=== PATIENT | male | born 1955 | race Caucasian/White ===

== ENCOUNTER 2023-03-10 08:49 | Outpatient (OUT) | payer OTHER, SELFPAY ==
--- NOTE | 2023-03-10 | XR_ITS ---
The [address] [address] Patient Name: GREGG FOSTER MRN: [id number] date: 1955 Sex: M Assigned Patient Location: Current Patient Location: Accession/Order Number: [id number] Exam Date: 03/10/2023 09:03 Report Date: 03/10/2023 09:24 At the request of: LAISHA MOMIN Procedure: XR foot RT min 3V PROCEDURE: XR foot RT min 3V DATE: 03/10/2023 8:03 AM CDT COMPARISONS: None CLINICAL INDICATION: RIGHT FOOT PAIN FINDINGS: There is no evidence of fractures or other acute osseous abnormalities. Soft tissue swelling is noted about the foot especially the dorsum of the foot on lateral view in the medial foot on frontal view There is mild to moderate first metatarsal phalangeal and first interphalangeal degenerative change. There is minimal spurring off the posterior inferior os calcis. There is more prominent spurring off the posterior os calcis at the attachment of the Achilles. There is no evidence of erosive osseous lesion or destructive osseous process. XR/XR foot RT min 3V IMPRESSION: Right foot radiographs show no evidence of acute abnormalities. Findings as discussed above. Electronically authenticated by: MELINDA VELAZCO Date: 03/10/2023 09:24
== END 2023-03-10 08:50 | disposition home or self-care (01) ==
LOC: WC 08:50
PROVIDERS: Family Provider Family Medicine; PCP Family Medicine; Visit Provider Podiatrist Foot & Ankle Surgery
DX: M79.671 Pain in right foot (principal); E11.621 Type 2 diabetes mellitus with foot ulcer; L97.411 Non-pressure chronic ulcer of right heel and midfoot limited to breakdown of skin
CPT/HCPCS: 11042; 73630; G0463

== ENCOUNTER 2023-04-18 10:43 | Outpatient (OUT) | payer OTHER, SELFPAY | END 2023-04-18 10:44 | disposition home or self-care (01) | LOC: WC 10:43 | PROVIDERS: Family Provider Family Medicine; PCP Family Medicine; Visit Provider Podiatrist Foot & Ankle Surgery | DX: E11.621 Type 2 diabetes mellitus with foot ulcer (principal); L97.411 Non-pressure chronic ulcer of right heel and midfoot limited to breakdown of skin | CPT/HCPCS: 11042 ==

== ENCOUNTER 2023-05-02 15:04 | Outpatient (OUT) | payer OTHER, SELFPAY | END 2023-05-02 15:05 | disposition home or self-care (01) | LOC: WC 15:04 | PROVIDERS: Family Provider Family Medicine; PCP Family Medicine; Visit Provider Podiatrist Foot & Ankle Surgery | DX: E11.621 Type 2 diabetes mellitus with foot ulcer (principal); L97.411 Non-pressure chronic ulcer of right heel and midfoot limited to breakdown of skin | CPT/HCPCS: 11042 ==

== ENCOUNTER 2023-05-16 15:56 | Outpatient (OUT) | payer OTHER, SELFPAY | END 2023-05-16 15:57 | disposition home or self-care (01) | LOC: WC 15:57 | PROVIDERS: Family Provider Family Medicine; PCP Family Medicine; Visit Provider Podiatrist Foot & Ankle Surgery | DX: E11.621 Type 2 diabetes mellitus with foot ulcer (principal); L97.412 Non-pressure chronic ulcer of right heel and midfoot with fat layer exposed; S81.801A Unspecified open wound, right lower leg, initial encounter | CPT/HCPCS: 11043 ==

== ENCOUNTER 2023-06-02 09:27 | Outpatient (OUT) | payer OTHER, SELFPAY | END 2023-06-02 09:28 | disposition home or self-care (01) | LOC: WC 09:27 | PROVIDERS: Family Provider Family Medicine; PCP Family Medicine; Visit Provider Podiatrist Foot & Ankle Surgery | DX: E11.621 Type 2 diabetes mellitus with foot ulcer (principal); L97.412 Non-pressure chronic ulcer of right heel and midfoot with fat layer exposed | CPT/HCPCS: 11042 ==

== ENCOUNTER 2023-06-23 09:30 | Outpatient (OUT) | payer OTHER, SELFPAY | END 2023-06-23 09:31 | disposition home or self-care (01) | LOC: WC 09:30 | PROVIDERS: Family Provider Family Medicine; PCP Family Medicine; Visit Provider Podiatrist Foot & Ankle Surgery | DX: E11.621 Type 2 diabetes mellitus with foot ulcer (principal); L97.412 Non-pressure chronic ulcer of right heel and midfoot with fat layer exposed; L97.511 Non-pressure chronic ulcer of other part of right foot limited to breakdown of skin | CPT/HCPCS: 11042 ==

== ENCOUNTER 2023-07-07 09:25 | Outpatient (OUT) | payer OTHER, SELFPAY | END 2023-07-07 09:26 | disposition home or self-care (01) | LOC: WC 09:26 | PROVIDERS: Family Provider Family Medicine; PCP Family Medicine; Visit Provider Podiatrist Foot & Ankle Surgery | DX: E11.621 Type 2 diabetes mellitus with foot ulcer (principal); L97.412 Non-pressure chronic ulcer of right heel and midfoot with fat layer exposed; L97.511 Non-pressure chronic ulcer of other part of right foot limited to breakdown of skin | CPT/HCPCS: 11043 ==

== ENCOUNTER 2023-07-28 11:49 | Outpatient (OUT) | payer OTHER, SELFPAY ==
--- NOTE | 2023-07-28 | XR_ITS ---
[address] [address] Patient Name: GREGG FOSTER MRN: [id number] date: 1955 Sex: M Assigned Patient Location: Current Patient Location: Accession/Order Number: [id number] Exam Date: 07/28/2023 10:27 Report Date: 07/28/2023 11:29 At the request of: LAISHA MOMIN Procedure: XR foot RT min 3V EXAM: XR foot RT min 3V HISTORY: RIGHT FOOT PAIN COMPARISON: Right foot study dated 03/10/2023 TECHNIQUE: 4 views of the right foot were obtained. FINDINGS: No definite acute fracture or dislocation. Moderate size posterior calcaneal spur with tiny plantar calcaneal spur suggested. Mild degenerative changes about the interphalangeal joint of the great toe and first metatarsophalangeal joint. Mild degenerative changes about the first metatarsal head. No obvious focal lytic or sclerotic lesion. Small spur along the dorsal navicular. No obvious soft tissue air. Mild soft tissue swelling suggested. XR/XR foot RT min 3V IMPRESSION: Right foot study demonstrates degenerative changes as described. No obvious focal lytic or sclerotic lesion. No obvious osteomyelitis. Mild soft tissue swelling suggested. Follow-up as needed. Electronically authenticated by: CARLOS MAGUIRE Date: 07/28/2023 11:29
== END 2023-07-28 11:50 | disposition home or self-care (01) ==
LOC: WC 11:49
PROVIDERS: Family Provider Family Medicine; PCP Family Medicine; Visit Provider Podiatrist Foot & Ankle Surgery
DX: E11.621 Type 2 diabetes mellitus with foot ulcer (principal); L97.412 Non-pressure chronic ulcer of right heel and midfoot with fat layer exposed; L97.511 Non-pressure chronic ulcer of other part of right foot limited to breakdown of skin
CPT/HCPCS: 11042; 73630

== ENCOUNTER 2023-08-04 09:14 | Outpatient (OUT) | payer OTHER, SELFPAY ==
[2023-08-04 09:26] LABS: Basophils Absolute Auto 0.1 10^3/uL (0.0-0.1); Basophils Percent Auto 1.2 % (0.2-2.0); Eosinophils Absolute Auto 0.3 10^3/uL (0.0-0.7); Eosinophils Percent Auto 3.3 % (0.9-7.0); Hematocrit 44.3 % (42.0-54.0); Hemoglobin 13.1 g/dL (14.0-18.0); Immature Granulocytes Abs Auto 0.03 10^3/uL (0.00-0.03); Immature Granulocytes Pct Auto 0.3 % (0.0-0.5); Lymphocytes Absolute Auto 1.3 10^3/uL (1.2-3.8); Lymphocytes Percent Auto 14.1 % (20.5-60.0); Mean Corpuscular HGB Conc 29.6 g/dL (29.9-35.2); Mean Corpuscular Hemoglobin 24.3 pg (25.9-34.0); Mean Corpuscular Volume 82.3 fL (80.0-94.0); Mean Platelet Volume 8.7 fL (9.5-13.5); Monocytes Percent Auto 11.2 % (1.7-12.0); Neutrophils Absolute Auto 6.5 10^3/uL (1.4-6.5); Neutrophils Percent Auto 69.9 % (43.0-75.0); Platelet Count 291 10^3/uL (150-450); Red Blood Count 5.38 10^6/uL (4.70-6.10); Red Cell Distribution Width 21.3 % (11.0-15.0); White Blood Count 9.3 10^3/uL (4.0-11.0)
[2023-08-04 09:28] LABS: Erythrocyte Sedimentation Rate 36 mm/hr (<=20)
--- OUTSIDE RECORDS SUMMARY | 2023-08-04 09:34 | XMS_ITS | CCD ---
Author Name Unknown Address [address] [place] [address] [facility] Care Team Providers Care Chemist Organic Name Role Phone Jeff Cerda Unavailable AYDE NICOLE Unavailable Unavailab AYDE Coley Unavailable Unavailab le JEFF CERDA Unavailable Unavailable Ayde Nicole Unavailable Unavailable Ayde Nicole Unavailable Unavailable PHYSICIAN, DEFAULT Unavailable Unavailable PHYSICIAN, DEFAULT Unavailable Unavailable SHADY RAMOS Unavailable Unavailable AYDE NICOLE Unavailable Unavailable SHADY RAMOS Unavailable Unavailable SHADY RAMOS Unavailable Unavailable SHADY RAMOS Unavailable Unavailable SHADY RAMOS Unavailable Unavailable Jeff Cerda Primary Care Provider Jeff Cerda Primary Care Provider Jeff Cerda Primary Care Provider Jeff Cerda Primary Care Provider Unavaila ble Jeff Cerda Primary Care Provider Jeff Cerda MD Primary Care Provider AYDE MATTHEWS Referring Unavailable JEFF CERDA Primary Care Unavailable AYDE MATTHEWS Admitting Unavailable AYDE MATTHEWS Attending Unavailable AYDE MATTHEWS Referring Unavailable JEFF CERDA Primary Care Unavailable Jeff Cerda MD Primary Care Provider Jeff Cerda MD Primary Care Provider Jeff Cerda MD Primary Care Provider Shahab Buckley MD Unavailable Jeff Cerda MD Primary Care Provider Jeff Cerda MD Primary Care Provider [phone] Shahab Buckley MD Unavailable [phone] Jeff Cerda MD Primary Care Provider [phone] Jeff Cerda MD Primary Care Provider Jeff Cerda MD Primary Care Provider [phone] Shahab Buckley MD Unavailable [phone] JEFF CERDA Primary Care Unavailable SHAHAB BUCKLEY Attending Unavailabl SHAHAB Piper Attending Unavailabl e PRASHANT, GREENWAY Vida Primary Care Unavailable SHAHAB BUCKLEY Attending Unavailabl e PRASHANT, GREENWAY J Admitting Unavailable [facility], [facility] Primary Care Unavailable [facility], GREEN[facility] J Referring Unavailable [facility], [facility] Primary Care Unavailable SHAHAB BUCKLEY Attending Unavailabl SHAHAB Piper Referring Unavailabl e PRASHANT, [facility] Primary Care Unavailable SHAHAB BUCKLEY Attending Unavailabl e PRASHANT, EDSACRAMENTO J Primary Care Unavailable TRACY BRIAN Consulting Unavailable SHAHAB BUCKLEY Admitting UnavailSHAHAB Cardenas Attending Unavailabl e PRASHANT, GREENWAY J Primary Care Unavailable SHAHAB BUCKLEY Referring Unavailabl e PRASHANT, EDSACRAMENTO J Primary Care Unavailable SHAHAB BUCKLEY Attending Unavailabl e PRASHANT, [facility] Primary Care Unavailable MARY JANE RODRIGUEZ Attending Unavailable MARY JANE RODRIGUEZ Referring Unavailable Jeff Cerda MD Primary Care Provider GURWINDER TRUONG Attending Unavailable GURWINDER TRUONG Admitting Unavailable LIONEL NICHOLS Consulting Unavailable PRASHANT Crocker, DR AMBRIZ Primary Care Unavailable LUIS BLOOM Consulting Unavailable Jeff Cerda MD Primary Care Provider Osiris Duran Consulting Unavailable NON STAFF Primary Care Unavailable Meena Falcon Admitting Unavailable Meena Falcon Attending Unavailable Rebecca Liriano Consulting Unavailable Nakul Salcedo Consulting Unavailable Shady Aviles Consulting Unavail able Jason Manuel Consulting Unavailable Mike Corea Consulting Unavailab Delaney Blankenship Consulting Unavailable Ana Nielson Consulting Unavailable Ivon Dumont Consulting Unavailab Shelton Foster Consulting Unavailable Soledad Ho Consulting Unavailable OsbaldolatriceJoyce Consulting Unavailable HEMEYER, EDWARD J Referring Unavailable HEMEYER, EDWARD J Primary Care Unavailable VIGESAA, RAFA S Referring Unavailable HEMEYER, EDWARD J Primary Care Unavailable HEMEYER, EDWARD J Primary Care Unavailable VIGESAA, RAFA S Referring Unavailable HEMEYER, EDWARD J Primary Care Unavailable VIGESAA, RAFA S Referring Unavailable HEMEYER, EDWARD J Primary Care Unavailable VIGESAA, RAFA S Referring Unavailable HEMEYER, EDWARD J Referring Unavailable HEMEYER, EDWARD J Primary Care Unavailable HEMEYER, EDWARD J Referring Unavailable HEMEYER, EDWARD J Primary Care Unavailable VIGESAA, RAFA S Attending Unavailable VIGESAA, RAFA S Referring Unavailable HEMEYER, EDWARD J Primary Care Unavailable HEMEYER, EDWARD J Referring Unavailable HEMEYER, EDWARD J Primary Care Unavailable HEMEYER, EDWARD J Primary Care Unavailable VIGESAA, RAFA S Referring Unavailable HEMEYER, EDWARD J Referring Unavailable HEMEYER, EDWARD J Primary Care Unavailable HEMEYER, EDWARD J Primary Care Unavailable HEMEYER, EDWARD J Referring Unavailable HEMEYER, EDWARD J Referring Unavailable HEMEYER, EDWARD J Primary Care Unavailable HEMEYER, EDWARD J Referring Unavailable HEMEYER, EDWARD J Primary Care Unavailable HEMEYER, EDWARD J Referring Unavailable HEMEYER, EDWARD J Primary Care Unavailable HEMEYER, EDWARD J Referring Unavailable HEMEYER, EDWARD J Primary Care Unavailable HEMEYER, EDWARD J Primary Care Unavailable VIGESAA, RAFA S Referring Unavailable HEMEYER, EDWARD J Primary Care Unavailable VIGESAA, RAAF S Referring Unavailable HEMEYER, EDWARD J Referring Unavailable HEMEYER, EDWARD J Primary Care Unavailable Xander YAN MD, Franck Huang Primary Care Provider [phone] Osiris Duran Consulting Unavailable NON STAFF Primary Care Unavailable Meena Falcon Admitting Unavailable Meena Falcon Attending Unavailable Rebecca Liriano Consulting Unavailable Nakul Salcedo Consulting Unavailable Shady Aviles Consulting Unavail able Jason Manuel Consulting Unavailable Mike Corea Consulting Unavailab Delaney Blankenship Consulting Unavailable Nielson, Ana Consulting Unavailable Tim, Ivonsergey Gonzalezeb Consulting Unavailab Shelton Foster Consulting Unavailable Soledad Ho Consulting Unavailable Joyce Latham Consulting Unavailable Rama, Sanjeev Consulting Unavailable Leuschen [facility], Mikael Unavailable Prashant [place], [facility] Primary Care Provider IAM, OUSSAMA M Referring Un[facility] Primary Care Unavailab le WAZNI, OUSSAMA M Referring Un[facility] Care Unavailab le WAZNI, OUSSAMA M Referring Unavailable [facility], [facility] Care Unavailab le AKASHZNI, OUSSAMA M Referring Un[facility] Care Unavailab ANAMARIA Dorman Attending Unavailable WAZNI, OUSSAMA M Referring Unavailable [facility], [facility] Care Unavailab YANNICK De Attending Unavailable [facility] Care Unavailab YANNICK De Referring Unavailable [facility], [facility] Care Unavailab YANNICK De Referring Unavailable TERRELL II, FRANCK B Primary Care Unavailable HSICH, VENUS M Referring Unavailable TERRELL II, FRANCK B Primary Care Unavailable WAZNI, OUSSAMA M Referring Unavailable XAVIER-NLIAM, CHETE Admitting Unavailable TERRELL II, FRANCK B Primary Care Unavailable JOLANTA, SANJEEB Attending Unavailabl e XAVIER-NLIAM, CHETE Attending Unavailable XAVIER-NLIAM, CHETE Admitting Unavailable TERRELL II, FRANCK B Primary Care Unavailable WAZNI, OUSSAMA M Referring Unavailable JOLANTA, SANJEEB Attending Unavailabl e HEMEYER, [facility] Primary Care Unavailab le TERRELL II, FRANCK B Primary Care Unavailable XAVIER-NLIAM, CHETE Referring Unavailable TERRELL II, FRANCK B Primary Care Unavailable HSICH, VENUS M Referring Unavailable TERRELL II, FRANCK B Primary Care Unavailable HSICH, VENUS M Referring Unavailable TERRELL II, FRANCK B Primary Care Unavailable YANNICK ZUÑIGA Attending Unavailable TERRELL II, FRANCK B Primary Care Unavailable YANNICK ZUÑIGA Referring Unavailable TERRELL II, FRANCK B Primary Care Unavailable MATEJKA, YANNICK D Referring Unavailable Medications Current Medications Medication Drug Class(es) Dates Sig (Normalized) Sig (Original) acetaminophen 325 mg oral tablet (20 sources) Start: 12-29-2021 End: 01-08-2022 take 2 tablets by mouth every four hours as needed acetaminophen (TYLENOL) 325 MG tablet Take 2 (two) tablets (650 mg total) by mouth every 4 (four) hours as needed . 30 tablet 0 12/29/2021 01/08/2022 Active Start: 12-28-2021 End: 12-29-2021 take 1 tablet by mouth every four hours as needed for pain and headache 650 mg, Oral, Every 4 hours PRN, mild pain, fever 100.4 F or greater, headaches, Starting on Mon12/28/21 at 1729 take 1 tablet by josé luis th at bedtime acetaminophen (TYLENOL) 500 MG tablet Take 1 tablet by mouth at bedtime 0 Active take 2 tablets by mo uth at bedtime acetaminophen (TYLENOL) 500 MG tablet Take 1,000 mg by mouth in the morning and at bedtime 0 Active acetaminophen 325 mg / HYDROcodone bitartrate 5 mg oral tablet (1 source) Opioid Agonist Start: 11-23-2020 End: 11-23-2020 HYDROcodone-acetaminophen (NORCO) 5-325 MG per tablet 1 tablet cholecalciferol 0.05 mg oral capsule (20 sources) Vitamin D Cholecalciferol (VITAMIN D) 50 MCG (2000 UT) CAPS capsule Take 8,000 Units by mouth daily 0 Active take 2 tablets by mouth once rossi ly cholecalciferol, vitamin D3, 1,000 unit tablet Take 2 (two) tablets (2,000 Units total) by mouth daily . 0 Active take 4 capsules by m outh once daily, then take 1 capsule by mouth Cholecalciferol (VITAMIN D) 2000 units C APS capsule Take 8,000 Units by mouth daily 0 Active 1 ml diphenhydrAMINE hydrochloride 50 mg/ml cartridge (1 source) Histamine-1 Receptor Antagonist Start: 11-23-2020 End: 11-23-2020 diphenhydrAMINE (BENADRYL) injection 12.5 mg famotidine 20 mg oral tablet (1 source) Histamine-2 Receptor Antagonist take 1 tablet by mouth twice daily famotidine (PEPCID) 20 MG tablet Take 20 mg by mouth 2 (two) times a day. Active furosemide 20 mg oral tablet (20 sources) Loop Diuretic Start: 09-08-2022 take 2 tablets by mouth once daily in the morning, then take 1 tablet by mouth once daily in the evening furosemide (LASIX) 20 MG tablet TAKE 2 TABLETS BY MOUTH EVERY MORNING AND 1 TABLET BY MOUTH EVERY EVENING 90 tablet 11 09/08/2022 Active Start: 10-14-2021 take 2 tablets by mo uth once daily in the morning, then take 1 tablet by mouth once daily in the evening furosemide (LASIX) 20 MG tablet TAKE 2 TABLETS BY MOUTH EVERY MORNING AND 1 TABLET EVERY EVENING 90 tablet 11 10/14/2021 Active Start: 02-11-2019 End: 12-29-2021 take 20 mg by mouth twice daily 20 mg, Oral, 2 times d aily, First dose on Mon12/28/21 at 2100 Start: 09-01-2017 take 2 tablets by mo uth once daily in the morning, then take 1 tablet by mouth once daily in the evening furosemide (LASIX) 20 MG tablet TAKE 2 TABLETS BY MOUTH EVERY MORNING AND 1 TABLET EVERY EVENING 270 tablet 3 10/19/2020 Active take 2 tablets by mo uth twice daily furosemide (LASIX) 20 MG tablet Take 20 mg by mouth 2 (two) times a day 2 tablets . 0 Active furosemide (LASI X) 10 mg/mL solution Take by mouth daily. Active Comment on above: Take 2 tablets by mo uth once daily. 1 ml HYDROmorphone hydrochloride 1 mg/ml cartridge (4 sources) Opioid Agonist Start: 11-23-2020 HYDROmorphone (DILAUDID) injection 0.5 mg Start: 11-23-2020 HYDROmorphone (DILAUDID) injection 0.25 mg 24 hr isosorbide mononitrate 30 mg extended release oral tablet (20 sources) Nitrate Vasodilator Start: 03-17-2022 take 1 tablet by mouth once daily isosorbide mononitrate (IMDUR) 30 MG extended release tablet TAKE 1 TABLET BY MOUTH EVERY DAY 30 tablet 03/17/2022 Active Start: 02-11-2019 End: 12-29-2021 take 1 tablet by mouth once daily isosorbide mononitrate (IMDUR) 30 MG extended release tablet TAKE 1 TABLET BY MOUTH EVERY DAY 30 tablet 11 03/17/2021 Active 1 ml meperidine hydrochloride 50 mg/ml injection (1 source) Opioid Agonist Start: 11-23-2020 meperidine (DEMEROL) injection 12.5 mg 2 ml metoclopramide 5 mg/ml prefilled syringe (1 source) Dopamine-2 Receptor Antagonist Start: 11-23-2020 End: 11-23-2020 metoclopramide (REGLAN) injection 10 mg omeprazole 40 mg delayed release oral capsule (1 source) Proton Pump Inhibitor take 1 capsule by mouth once daily omeprazole (PRILOSEC) 40 MG capsule Take 40 mg by mouth daily. Active promethazine hydrochloride 25 mg oral tablet (3 sources) Phenothiazine Start: 11-23-2020 End: 11-30-2020 take 1 tablet by mouth every six hours as needed for nausea promethazine (PHENERGAN) 25 MG tablet Take 1 tablet by mouth every 6 hours as needed for Nausea 28 tablet 0 11/23/2020 11/23/2020 Discontinued (REORDER) Start: 11-23-2020 End: 11-23-2020 promethazine (PHENERGAN) inj ection 6.25 mg 72 hr scopolamine 0.0139 mg/hr transdermal system (1 source) Anticholinergic Start: 11-23-2020 scopolamine (TRANSDERM-SCOP) transdermal patch 1 patch Sodium Chloride (2 sources) Start: 08-19-2019 End: 08-20-2019 sodium chloride (PF) 0.9 % injection 10 mL Start: 08-12-2019 End: 08-12-2019 0.9 % sodium chloride bolus torsemide 20 mg oral tablet (20 sources) Loop Diuretic Start: 04-13-2023 End: 04-25-2024 take 4 tablets by mouth twice daily torsemide (DEMADEX) 20 mg tablet Take 4 tablets by mouth twice daily. 720 tablet 3 04/26/2023 04/25/2024 Active Start: 03-14-2023 take 1 tablet by josé luis twice daily torsemide (SOAANZ) 40 mg tablet Take 40 mg by mouth twice daily. 0 03/14/2023 Suspended Comment on above: Take 40 mg by mouth twice daily. Take 4 tablets by mo [facility] twice daily. warfarin sodium 2.5 mg oral tablet (20 sources) Vitamin K Antagonist Start: 09-12-2022 warfarin (COUMADIN) 2.5 MG tablet TAKE 1/2 TABLET WEDNESDAYS AND SATURDAYS AND TAKE 1 TABLET BY MOUTH EVERY OTHER DAY OR DIRECTED 30 tablet 5 09/12/2022 Active Start: 08-24-2022 warfarin (COUM JONH) 2.5 MG tablet TAKE 1/2 TABLET WEDNESDAYS AND SATURDAYS AND TAKE 1 TABLET BY MOUTH EVERY OTHER DAY OR DIRECTED 30 tablet 5 08/24/2022 Active Start: 07-25-2022 End: 08-24-2022 take 1 tablet by mouth once daily warfarin (COUMADIN) 2.5 MG tablet TAKE 1 TABLET BY MOUTH EVERY DAY OR DIRECTED 30 tablet 5 07/25/2022 08/24/2022 Discontinued (DOSE ADJUSTMENT) Start: 06-01-2022 warfarin (COUM JONH) 2.5 MG tablet Take 1 tablet daily or as directed. Managed by [facility]. 90 tablet 1 06/01/2022 Active Start: 02-15-2022 End: 06-01-2022 warfarin (COUMADIN) 2.5 MG t ablet Take 1/2 tablet (1.25 mg warfarin) on Tuesdays, , Saturdays, and Sundays or as directed. Managed by [facility] 90 tablet 1 02/15/2022 06/01/2022 Discontinued (DOSE ADJUSTMENT) Start: 02-15-2022 End: 02-22-2022 warfarin (COUMADIN) 5 MG tab let Take 1/2 tablet (2.5 mg warfarin) on Mondays, Wednesdays, and Fridays or as directed. Managed by [facility] 30 tablet 3 02/15/2022 02/22/2022 Discontinued (DOSE ADJUSTMENT) Start: 01-27-2022 warfarin (COUM JONH) 2.5 MG tablet Take 1/2 tablet daily or as directed. Managed by [facility] 90 tablet 1 01/27/2022 Active Start: 01-13-2022 End: 01-27-2022 warfarin (COUMADIN) 5 MG tab let Take 1/2 tablet EVERY DAY of the week (except skip Fridays) or as directed. Managed by [facility] 90 tablet 3 01/20/2022 01/27/2022 Discontinued (DOSE ADJUSTMENT) Start: 12-28-2021 End: 12-28-2021 take 5 mg by mouth once 5 mg, Oral, Once, On 12/06 at 2000, For 1 dose Check INR prior to administration. Notify physician if patient refuses med. CATEGORY D HAZARDOUS DRUG use safe handling precautions. Use reference link to view PPE guidelines. Minimize crushing/splitting only to situations where clinically necessary. P/U LISTED HAZARDOUS DRUG. Dispose of waste in Black Container. Start: 05-25-2021 End: 01-13-2022 warfarin (COUMADIN) 5 MG tab let Take 1 tablet on Wednesdays and 1/2 tablet all other days of the week or as directed 90 tablet 3 12/22/2021 01/13/2022 Discontinued (DOSE ADJUSTMENT) Start: 09-13-2018 End: 08-14-2020 warfarin (COUMADIN) 5 MG tab let Take 1 tablet on Tuesdays and Saturdays and 1/2 tablet all other days of the week or as directed. Managed by [facility] 90 tablet 3 08/14/2020 Active Comment on above: Take 2.5 mg on and Saturdays and 5 mg all other days of the week Completed/Discontinued Medications Medication Drug Class(es) Dates Sig (Normalized) Sig (Original) acetaminophen 325 mg / oxyCODONE hydrochloride 5 mg oral tablet (3 sources) Opioid Agonist Start: 12-28-2021 End: 12-29-2021 take 1-2 tablets by mouth every four hours as needed 1-2 tablet, Oral, Every 4 hours PRN, moderate to severe pain, Starting on Mon12/28/21 at 1729 [] Initiate with 1 tablet oral every 4 hours prn moderate to severe pain. [] For unrelieved pain, may repeat one tablet oral dose within 60 minutes of initial dose. [] If pain is RELIEVED after repeat dose, change to two tablets of 5/325 mg oral every 4 hours prn moderate to severe pain. [] If pain is UNrelieved after repeat dose, or patient requires dose reduction, call physician. Start: 11-23-2020 End: 11-30-2020 oxyCODONE-acetaminophen (PER COCET) 5-325 MG per tablet Indications: Post-op pain Take 1 tablet by mouth every 6 hours as needed for Pain for up to 7 days. Intended supply: 3 days. Take lowest dose possible to manage pain 28 tablet 0 11/23/2020 11/23/2020 Discontinued (REORDER) allopurinol 100 mg oral tablet (20 sources) Xanthine Oxidase Inhibitor Start: 04-13-2023 take 0.5 tablet by mouth once daily allopurinol (ZYLOPRIM) 100 mg tablet Take a half tablet by mouth once daily. 90 tablet 3 04/13/2023 Active Start: 03-01-2023 take 1 tablet by josé luis th once daily allopurinol (ZYLOPRIM) 300 mg tablet Take 1 tablet by mouth once daily. 0 03/01/2023 Suspended take 3 tablets by mo [facility] once daily in the morning allopurinol (ZYLOPRIM) 100 MG tablet Take 3 tablets by mouth every morning 0 Active Comment on above: Take 1 tablet by josé luis th once daily. Take a half tablet b y mouth once daily. amoxicillin 500 mg / clavulanate 125 mg oral tablet (20 sources) Penicillin-class Antibacterial Start: 3 take 1 tablet by mouth every eight hours amoxicillin-clavu lanic acid (AUGMENTIN) 500-125 mg per tablet Take 1 tablet by mouth every 8 hours. 90 tablet 0 04/13/2023 Active Comment on above: Take 1 tablet by josé luis th every 8 hours. apixaban 5 mg oral tablet (15 sources) Factor Xa Inhibitor Start: 3 take 1 tablet by mouth twice daily apixaban (ELIQUIS) 5 mg tab(s) Take 1 tablet by mouth two times a day. 60 tablet 3 05/12/2023 Active Comment on above: Take 1 tablet by josé luis th two times a day. aspirin 81 mg delayed release oral tablet (20 sources) Nonsteroidal Anti-inflammatory Drug Start: 2 End: 2 take 81 mg by mouth once daily 81 mg, Oral, Daily, First dose on Mon12/29/21 at 0900 DO NOT CRUSH OR CHEW. take 1 tablet by mouth once joseph y aspirin 325 MG tablet Take 325 mg by mouth daily. Active Comment on above: Take 1 tablet by josé luis th once daily. atorvastatin 80 mg oral tablet (20 sources) HMG-CoA Reductase Inhibitor Start: 3 take 1 tablet by mouth once daily atorvastatin (LIPITOR) 80 mg tablet Take 1 tablet by mouth once daily. 0 01/09/2023 Active Start: 12-29-2021 End: 04-27-2022 take 1 tablet by mouth once daily atorvastatin (Lipitor) 80 MG tablet Take 1 (one) tablet (80 mg total) by mouth daily . 30 tablet 11 01/25/2022 Active Comment on above: Take 1 tablet by josé luis once daily. calcium chloride 0.0014 meq/ml / potassium chloride 0.004 meq/ml / sodium chloride 0.103 meq/ml / sodium lactate 0.028 meq/ml injectable solution (4 sources) Start: 2 End: 2 take 75 mL intravenously every hour 75 mL/hr, Intravenous, Continuous, Starting on Mon12/28/21 at 1815, For 12 hours Discontinue IV in 12 hours Start: 12-28-2021 End: 12-28-2021 lactated Ringers infusion Start: 11-23-2020 End: 11-23-2020 lactated ringers infusion calcium polycarbophil 625 mg oral tablet (5 sources) End: 12-28-2021 take 1 tablet by mouth once daily polycarbophil (FIBERCON) 625 mg tablet Take 625 mg by mouth daily Not taking . 0 12/28/2021 Discontinued take 2 tablets by mouth once rossi ly polycarbophil (FIBERCON) 625 mg tablet Take 625 mg by mouth daily 2 tablets . 0 Active carvedilol 6.25 mg oral tablet (3 sources) alpha-Adrenergic Alexa, beta-Adrenergic Alexa Start: 03-18-2023 take 1 tablet by mouth twice daily carvedilol (COREG) 6.25 mg tablet Take 1 tablet by mouth twice daily. 0 03/18/2023 Suspended Comment on above: Take 1 tablet by mouth twice daily. ceFAZolin 2000 mg injection (1 source) Cephalosporin Antibacterial Start: 12-28-2021 End: 12-29-2021 take 2000 mg intravenously every eight hours 2,000 mg, Intravenous, at 100 mL/hr, Every 8 hours, First dose on Mon12/28/21 at 1900, For 2 doses Initiate 8 hours after start of Pre-procedure dose. Indication (POST PROCEDURE): Cardiothoracic clopidogrel 75 mg oral tablet (20 sources) [id number] Platelet Inhibitor Start: 12-08-2021 End: 12-08-2022 take 1 tablet by mouth once daily clopidogrel (PLAVIX) 75 mg tablet Take 1 tablet by mouth once daily. 0 12/08/2021 Active Comment on above: Take 1 tablet by mouth once daily. colchicine 0.6 mg oral tablet (4 sources) Start: 12-30-2022 take 1 tablet by mouth every twelve hours colchicine 0.6 mg tablet Take 1 tablet by mouth every 12 hours. 0 12/30/2022 Suspended take 1 tablet by mouth once joseph y colchicine (COLCRYS) 0.6 MG tablet Take 1 tablet by mouth daily 0 Active Comment on above: Take 1 tablet by josé luis th every 12 hours. diazePAM 5 mg oral tablet (20 sources) Benzodiazepine End: 01-28-20 take 1 tablet by mouth every six hours as needed for anxiety diazepam (VALIUM) 5 MG tablet Take 5 mg by mouth every 6 hours as needed for Anxiety. 0 01/27/2022 Discontinued (LIST CLEANUP) DULoxetine 20 mg delayed release oral capsule (20 sources) Serotonin and Norepinephrine Reuptake Inhibitor Start: 01-27-20 take 1 capsule by mouth once daily DULoxetine (CYMBALTA) 20 mg capsule Take 1 capsule by mouth once daily. 0 01/26/2022 Active Comment on above: Take 1 capsule by mo [facility] once daily. empagliflozin 10 mg oral tablet (20 sources) Sodium-Glucose Cotransporter 2 Inhibitor Start: 04-13-20 take 1 tablet by mouth once daily empagliflozin (JARDIANCE) 10 mg tablet Take 1 tablet by mouth once daily. 90 tablet 3 04/13/2023 Active Comment on above: Take 1 tablet by josé luis once daily. FIBER COMPLETE PO (20 sources) End: 01-28-20 FIBER COMPLETE PO Take 1 tablet by mouth as needed 0 01/27/2022 Discontinued (LIST CLEANUP) FIBER COMPLETE P O Take 1 tablet by mouth as needed 0 Active take 1 tablet by mouth once joseph y FIBER COMPLETE PO Take 1 tablet by mouth daily 0 Active FIBER COMPLETE P O Take 1 tablet by mouth 0 Active gabapentin 300 mg oral capsule (20 sources) Anti-epileptic Agent Start: 12-29-2021 take 1 capsule by mouth twice daily gabapentin (NEURONTIN) 300 mg capsule Take 300 mg by mouth twice daily. 0 12/29/2021 Active Start: 12-29-2021 End: 01-28-2022 gabapentin (NEURONTIN) 300 M G capsule Take 1 (one) capsule (300 mg total) by mouth every 8 (eight) hours (Days supply per fill: 4) . 90 capsule 0 12/29/2021 Active Start: 12-28-2021 End: 12-29-2021 take 300 mg by mouth every eight hours 300 mg, Oral, Every 8 hours scheduled, First dose on Mon12/28/21 at 2200 take 1 capsule by [facility] three times daily gabapentin (NEURONTIN) 300 MG capsule Take 300 mg by mouth 3 times daily. 0 Active Comment on above: Take 300 mg by mouth twice daily. Gadoterate Meglumine 0.5 Mmol/Ml Intravenous Solution (1 source) Start: 09-18-2017 End: 09-18-2017 gadoterate meglumine (DOTAREM) injection 40 mL 40 mL, Intravenous, Once in imaging, contrast, Starting 09/18/17 at 0949, For 1 dose Contrast Administered 09/18/2017 09:50 EST 40 mL 1 ml heparin sodium, porcine 5000 unt/ml injection (1 source) Unfractionated Heparin, Anti-coagulant Start: 12-28-2021 End: 12-28-2021 heparin (porcine) injection 5,000 Units Start: 12-28-2021 End: 12-28-2021 heparin (porcine) injection 5,000 Units hydrALAZINE hydrochloride 25 mg oral tablet (4 sources) Arteriolar Vasodilator Start: 02-27-2023 take 1 tablet by mouth twice daily hydrALAZINE (APRESOLINE) 25 mg tablet Take 25 mg by mouth twice daily at 6AM and 9PM. 0 02/27/2023 Suspended Start: 11-23-2020 hydrALAZINE (A PRESOLINE) injection 5 mg Comment on above: Take 25 mg by mouth twice daily at 6AM and 9PM. indocyanine green (IC-GREEN) syringe 5 mg (1 source) Start: End: indocyanine green (IC-GREEN) syringe 5 mg 3 ml insulin detemir 100 unt/ml pen injector (20 sources) Insulin Analog Start: insulin detemir U-100 (LEVEMIR FLEXPEN) 100 unit/mL (3 mL) injection pen Inject 30 Units subcutaneously every morning. 15 mL 0 04/13/2023 Active Comment on above: Inject 30 Units subc utaneously every morning. insulin glargine 100 unt/ml injectable solution (20 sources) Insulin Analogue Start: End: inject 75 [IU] by subcutaneous injection once daily 75 Units, Subcutaneous, Nightly, First dose on Mon12/28/21 at 2100 Do not mix with other insulins in a syringe. Do NOT hold basal insulin without notifying physician insulin glargine (LANTUS) 100 UNIT/ML injection vial Inject 75 Units into the skin nightly 0 Active Comment on above: Inject 75 Units subc utaneously daily at bedtime. 3 ml insulin lispro 100 unt/ml pen injector (2 sources) Insulin Analog Start: insulin lispro (HUMALOG KWIKPEN) 100 unit/mL Inject 24 Units subcutaneously with MEALS. 15 mL 0 04/13/2023 Active Comment on above: Inject 24 Units subc utaneously with MEALS. insulin lispro (HUMALOG KWIKPEN) 100 unit/mL (19 sources) Start: insulin lispro (HUMALOG KWIKPEN) 100 unit/mL Inject 24 Units subcutaneously with MEALS. 15 mL 0 04/13/2023 Active Comment on above: Inject 24 Units subc utaneously with MEALS. Iopamidol (1 source) Radiographic Contrast Agent Start: End: iopamidol (ISOVUE-370) 76 % injection 75 mL losartan potassium 50 mg oral tablet (9 sources) Angiotensin 2 Receptor Alexa Start: End: take 1 tablet by mouth once daily losartan (COZAAR) 50 MG tablet Take 1 tablet by mouth daily 30 tablet 11 11/09/2018 09/02/2019 Discontinued (Alternate therapy) metFORMIN hydrochloride 500 mg oral tablet (20 sources) Biguanide Start: End: take 30 mL by mouth twice daily at mealtime 1,000 mg, Oral, 2 times daily with meals, First dose on Mon12/28/21 at 1900 Note: Guidelines recommend that metformin be held for 48 hours after use of iodinated contrast media (IVP Dye) in patients with an eGFR less than 30 ml/min/1.73m2, with a history of hepatic disease, alcoholism or heart failure, or in patients who will receive intra-arterial iodinated contrast. Start: 12-25-2017 End: 04-26-2023 take 1 tablet by mouth twice daily at mealtime metFORMIN (GLUCOPHAGE) 850 mg tablet Take 850 mg by mouth twice daily with meals. 0 12/25/2017 04/26/2023 Discontinued Start: 12-25-2017 metFORMIN (GLU COPHAGE) 1,000 mg tablet Take 850 mg by mouth once daily. 0 12/25/2017 Suspended Start: 12-25-2017 take 1 tablet by josé luis th twice daily at mealtime metFORMIN (GLUCOPHAGE) 1000 MG tablet Take 1 tablet by mouth 2 times daily (with meals) 60 tablet 3 12/25/2017 Active Comment on above: Take 850 mg by mouth once daily. Take 850 mg by mouth twice daily with meals. 24 hr metoprolol succinate 25 mg extended release oral tablet (20 sources) beta-Adrenergic Alexa Start: 04-13-2023 take 1 tablet by mouth twice daily metoprolol succinate ER (TOPROL XL) 25 mg 24 hr tablet Take 1 tablet by mouth twice daily. 90 tablet 3 04/13/2023 Active Start: 09-08-2022 take 1 tablet by josé luis th once daily metoprolol succinate (TOPROL XL) 50 MG extended release tablet TAKE 1 TABLET BY MOUTH EVERY DAY 30 tablet 11 09/08/2022 Active Start: 10-14-2021 End: 12-29-2021 take 1 tablet by mouth once daily metoprolol succinate (TOPROL XL) 50 MG extended release tablet TAKE 1 TABLET BY MOUTH EVERY DAY 30 tablet 10/14/2021 Active Start: 10-19-2020 take 1 tablet by josé luis th once daily metoprolol succinate (TOPROL XL) 50 MG extended release tablet TAKE 1 TABLET BY MOUTH EVERY DAY 30 tablet 10/19/2020 Active Start: 10-12-2018 End: 10-17-2019 take 1 tablet by mouth once daily metoprolol succinate (TOPROL XL) 50 MG extended release tablet TAKE 1 TABLET BY MOUTH EVERY DAY 30 tablet 11 10/17/2019 Active take 2 tablets by mo [facility] once daily metoprolol succinate (TOPROL-XL) 25 MG 24 hr tablet Take 2 (two) tablets (50 mg total) by mouth daily . 0 Active take 1 tablet by josé luis th once daily metoprolol succinate (TOPROL-XL) 25 MG 24 hr tablet Take 50 mg by mouth daily . 0 Active take 1 tablet by josé luis th once daily metoprolol succinate (TOPROL-XL) 25 MG 24 hr tablet Take 25 mg by mouth daily. Active Comment on above: Take 1 tablet by josé luis th twice daily. naloxone (NARCAN) injection 0.1 mg (1 source) Start: 2 End: 2 naloxone (NARCAN) injection 0.1 mg olmesartan medoxomil 20 mg oral tablet (6 sources) Angiotensin 2 Receptor Alexa End: 2 take 1 tablet by mouth once daily olmesartan (BENICAR) 20 MG tablet Take 20 mg by mouth daily Not taking . 0 12/28/2021 Discontinued ondansetron 4 mg oral tablet (13 sources) Serotonin-3 Receptor Antagonist Start: 2 End: 2 take 1 tablet by mouth three times daily as needed ondansetron (ZOFRAN) 4 MG tablet Take 4 mg by mouth 3 times daily as needed 0 01/20/2022 06/01/2022 Discontinued (Therapy completed) perflutren lipid microspheres (DEFINITY) 0.143 mg/mL solution 0-10 mL of mixture (1 source) Start: 2 End: 2 perflutren lipid microspheres (DEFINITY) 0.143 mg/mL solution 0-10 mL of mixture regadenoson (LEXISCAN) injection 0.4 mg (1 source) Start: 0 End: 0 regadenoson (LEXISCAN) injection 0.4 mg sacubitril 49 mg / valsartan 51 mg oral tablet (20 sources) Angiotensin 2 Receptor Alexa Start: 3 End: 4 take 1 tablet by mouth twice daily sacubitril-valsartan (ENTRESTO) 49-51 mg tablet Take 1 tablet by mouth two times a day. 180 tablet 3 06/27/2023 07/12/2023 Discontinued Start: 02-12-2023 take 1 tablet by josé luis th every twelve hours ENTRESTO 49-51 mg tablet Take 1 tablet by mouth every 12 hours. 0 02/12/2023 Suspended Start: 01-16-2023 take 1 tablet by josé luis th twice daily ENTRESTO 49-51 MG per tablet TAKE 1 TABLET BY MOUTH TWICE A DAY 60 tablet 11 01/16/2023 Active Start: 10-19-2020 End: 12-29-2021 take 1 tablet by mouth twice daily ENTRESTO 49-51 MG per tablet TAKE 1 TABLET BY MOUTH TWICE A DAY 60 tablet 10/14/2021 Active Start: 10-01-2019 take 49-51 mg by mouth once sa cubitril-valsartan (ENTRESTO) 49-51 MG per tablet Take 1 tablet by mouth 2 times daily 60 tablet 10/01/2019 Active End: 10-17-2019 take 24-26 mg by mouth once sacubitril-valsartan (ENTR ESTO) 24-26 MG per tablet Take 1 tablet by mouth 2 times daily Samples x2 lot #[id number] exp date 07/27 0 10/17/2019 Discontinued (DOSE ADJUSTMENT) Comment on above: Take 1 tablet by josé luis th every 12 hours. Take 1 tablet by josé luis th twice daily. Take 1 tablet by josé luis th two times a day. simvastatin 40 mg oral tablet (20 sources) HMG-CoA Reductase Inhibitor Start: 12-29-19 End: 01-07-20 take 40 mg by mouth once daily 40 mg, Oral, Nightly, First dose on Mon12/28/21 at 2100 spironolactone 25 mg oral tablet (20 sources) Aldosterone Antagonist Start: 01-19-20 23 take 1 tablet by mouth once daily spironolactone (ALDACTONE) 25 mg tablet Take 1 tablet by mouth once daily. 0 01/18/2023 Suspended Start: 01-24-2022 take 1 tablet by josé luis th once daily spironolactone (ALDACTONE) 25 MG tablet TAKE 1 TABLET BY MOUTH EVERY DAY 30 tablet 01/24/2022 Active Start: 02-11-2019 End: 12-29-2021 take 1 tablet by mouth once daily spironolactone (ALDACTONE) 25 MG tablet TAKE 1 TABLET BY MOUTH EVERY DAY 30 tablet 02/17/2021 Active Comment on above: Take 1 tablet by josé luis th once daily. technetium sestamibi (CARDIOLITE) injection 30 millicurie (1 source) Start: 08-19-2019 End: 08-19-2019 technetium sestamibi (CARDIOLITE) injection 30 millicurie Problems Active Problems Problem Classification Problem Date Documented Date Episodic/Chronic Abdominal pain (1 source) Epigastric pain; 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: [Epigastric pain] Episodic Acute and unspecified renal failure (1 source) Unspecified kidney failure; 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: [Unspecified kidney failure] Onset: 03-15-2023 Chronic Anxiety disorders (20 sources) Fear of flying; 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: [Fear of flying] Onset: 10-15-2018 03-20-2023 Chronic Cardiac dysrhythmias (20 sources) Multiple premature ventricular complexes; 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: [Ventricular premature depolarization] Onset: 09-25-2017 03-20-2023 Chronic Chronic kidney disease (20 sources) Chronic kidney disease stage 3B ; 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: [Stage 3b chronic kidney disease] Onset: 08-30-2017 03-20-2023 Chronic Chronic ulcer of skin (20 sources) Non-pressure chronic ulcer of right heel and midfoot with fat layer exposed; 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: [Ulcer of heel and midfoot] Onset: 03-23-2023 03-23-2023 Chronic Conduction disorders (20 sources) Automatic implantable cardiac defibrillator in situ; 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: [Presence of automatic (implantable) cardiac defibrillator] Onset: 08-21-2017 Chronic Congestive heart failure; nonhypertensive (20 sources) Acute exacerbation of chronic congestive heart failure; 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: [Heart failure, unspecified] Onset: 09-29-2015 Chronic Coronary atherosclerosis and other heart disease (20 sources) Ischemic cardiomyopathy; 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: [Coronary arteriosclerosis] Onset: 09-29-2015 09-01-2017 Chronic Diabetes mellitus with complications (20 sources) Type 2 diabetes mellitus with diabetic neuropathy, unspecified; 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: [Macular edema and retinopathy due to type 2 diabetes mellitus] Onset: 08-30-2017 03-20-2023 Chronic Diabetes mellitus without complication (20 sources) Diabetes mellitus; 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: [Diabetes mellitus without complication] Onset: 09-01-2017 09-01-2017 Chronic Disorders of lipid metabolism (20 sources) Mixed hyperlipidemia; 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: [Mixed hyperlipidemia] Onset: 03-16-2021 03-20-2023 Chronic Esophageal disorders (20 sources) Gastro-esophageal reflux disease without esophagitis; 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: [Laryngopharyngeal reflux] Onset: 08-11-2017 03-20-2023 Chronic Essential hypertension (20 sources) Hypertensive disorder; 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: [Essential (primary) hypertension] Onset: 09-29-2015 09-01-2017 Chronic Genitourinary symptoms and ill-defined conditions (1 source) Dysuria; 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: [Dysuria] 04-26-2023 Episodic Gout and other crystal arthropathies (1 source) Gout, unspecified; 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: [GOUT UNSPECIFIED] Onset: 01-02-2023 Chronic Mood disorders (20 sources) Moderate major depression, single episode; 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: [Major depressive disorder, single episode, moderate] Onset: 01-03-2023 03-20-2023 Chronic Nonspecific chest pain (1 source) Chest pain, unspecified; 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: [Chest pain, unspecified] Onset: 03-07-2023 Episodic Nutritional deficiencies (14 sources) Vitamin D deficiency; 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: [Vitamin D deficiency, unspecified] Onset: 02-20-2023 Chronic Occlusion or stenosis of precerebral arteries (20 sources) Atherosclerosis of right carotid artery; 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: [Occlusion and stenosis of right carotid artery] Onset: 11-27-2021 Chronic Osteoarthritis (20 sources) Osteoarthritis of joint of right shoulder region; 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: [Primary osteoarthritis, right shoulder] Onset: 01-03-2023 03-20-2023 Chronic Other aftercare (1 source) 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; 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: [FABRIC SOURCER CURRENT USE OF ASPIRIN] Onset: 01-02-2023 Episodic Other aftercare (1 source) 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; 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: [FABRIC SOURCER CURRENT USE OF INSULIN] Onset: 01-02-2023 Episodic Other aftercare (1 source) 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 oral hypoglycemic drugs; 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: [USP USE ORAL HYPOGLYCEMIC DX] Onset: 01-02-2023 Episodic Other and ill-defined heart disease (20 sources) Mural thrombus of left ventricle; 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: [Intracardiac thrombosis, not elsewhere classified] Onset: 07-23-2018 07-23-2018 Chronic Other and ill-defined heart disease (2 sources) Intracardiac thrombosis, not elsewhere classified; 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: [Intracardiac thrombosis, not elsewhere classified] Onset: 07-23-2018 Chronic Other and ill-defined heart disease (1 source) Heart disease; 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: [Heart disease, unspecified] 03-21-2023 Chronic Other and ill-defined heart disease (20 sources) Mural thrombus of heart; 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: [Intracardiac thrombosis, not elsewhere classified] Onset: 01-03-2023 03-20-2023 Chronic Other and ill-defined heart disease (20 sources) Cardiomegaly; 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: [Cardiomegaly] Onset: 08-21-2019 03-20-2023 Chronic Other and ill-defined heart disease (20 sources) Bilateral enlargement of atria; 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: [Cardiomegaly] Onset: 01-03-2023 03-20-2023 Chronic Other and ill-defined heart disease (20 sources) Left ventricular diastolic dysfunction ; 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: [Heart disease, unspecified] Onset: 09-13-2017 03-20-2023 Chronic Other and ill-defined heart disease (1 source) Heart disease, unspecified; 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: [Heart disease] Onset: 03-20-2023 Chronic Other and ill-defined heart disease (20 sources) Mural thrombus of left ventricle; 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: [LV (left ventricular) 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] Onset: 07-23-2018 07-23-2018 Other circulatory disease (20 sources) Stented artery; 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: [Presence of other vascular implants and grafts] Onset: 01-03-2023 03-20-2023 Chronic Other connective tissue disease (2 sources) Pain in left arm; 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: [Pain in left arm] Episodic Other connective tissue disease (3 sources) Other specified soft tissue disorders; 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: [OTHER SPEC SOFT TISSUE DISORDERS] Onset: 12-29-2022 Episodic Other diseases of kidney and ureters (1 source) Renal impairment Episodic Other lower respiratory disease (9 sources) Dyspnea; 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: [Shortness of breath] Episodic Other lower respiratory disease (1 source) Shortness of breath; 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: [Shortness of breath] Onset: 03-20-2023 Episodic Other nervous system disorders (1 source) Postoperative pain ; 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: [Other acute postprocedural pain] Episodic Other nutritional; endocrine; and metabolic disorders (20 sources) Cholesterol level - finding; 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: 01-03-2023 03-20-2023 Chronic Other nutritional; endocrine; and metabolic disorders (20 sources) Obese class I; 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: [Obesity, unspecified] Onset: 10-19-2017 03-20-2023 Chronic Other nutritional; endocrine; and metabolic disorders (20 sources) Obese class II; 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: [Obesity, unspecified] Onset: 03-23-2023 03-23-2023 Chronic Other nutritional; endocrine; and metabolic disorders (1 source) Other disorders of bilirubin metabolism; 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] Onset: 03-20-2023 Chronic Other screening for suspected conditions (not mental disorders or infectious disease) (6 sources) Increased bilirubin level; 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: [Serum creatinine raised] Onset: 12-06-2021 Episodic Promise-; endo-; and myocarditis; cardiomyopathy (except that caused by tuberculosis or sexually transmitted disease) (20 sources) Cardiomyopathy; 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: [Cardiomyopathy, unspecified] Onset: 09-01-2017 09-01-2017 Chronic Peripheral and visceral atherosclerosis (20 sources) Peripheral vascular disease, unspecified; 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: [Peripheral vascular disease, unspecified] Onset: 06-23-2017 03-20-2023 Chronic Residual codes; unclassified (20 sources) Dependence on enabling machine or device; 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: [Dependence on other enabling machines and devices] Onset: 09-27-2017 03-20-2023 Chronic Residual codes; unclassified (20 sources) Obstructive sleep apnea syndrome; 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: [Obstructive sleep apnea (adult) (pediatric)] Onset: 08-11-2017 03-20-2023 Chronic Retinal detachments; defects; vascular occlusion; and retinopathy (20 sources) Occlusion of left central retinal artery; 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: [Central retinal artery occlusion, left eye] Onset: 01-03-2023 Chronic Unclassified (1 source) Follow-up / 145() Onset: 10-31-2017 Unclassified (1 source) New Patient / [id number]() Onset: 09-25-2017 Unclassified (1 source) Dx: Frequent PVCs [I49.3 (ICD-10-CM)] Onset: 04-26-2023 Past or Other Problems Problem Classification Problem Date Documented Da te Episodic/Chronic Biliary tract disease (20 sources) Recurrent biliary colic; 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: [Calculus of bile duct without cholangitis or cholecystitis without obstruction] Onset: 11-23-2020 Episodic Blindness and vision defects (20 sources) Bilateral myopia of eyes; 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: [Myopia, bilateral] Onset: 10-08-2018 03-20-2023 Episodic Cardiac and circulatory congenital anomalies (1 source) Personal history of (corrected) congenital malformations of heart and circulatory system; 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: [History of repair of congenital atrial septal defect (ASD)] Onset: 03-20-2023 Episodic Coronary atherosclerosis and other heart disease (20 sources) History of percutaneous transluminal coronary angioplasty; 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: [Drug coated stent in anterior descending branch of left coronary artery] Onset: 08-21-2017 09-01-2017 Episodic Other aftercare (20 sources) Long-term current use of anticoagulant; 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: [retirement (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] Onset: 08-01-2018 08-01-2018 Episodic Other aftercare (3 sources) retirement (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; 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: [FABRIC SOURCER CURRNT USE ANTICOAGULANTS] Onset: 08-01-2018 Episodic Other aftercare (20 sources) Taking high risk medication; 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: [Other manager intermediate (current) drug therapy] Onset: 08-23-2020 03-20-2023 Episodic Other aftercare (20 sources) Long-term current use of insulin; 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: [retirement (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 insulin] Onset: 08-21-2017 03-20-2023 Episodic Other aftercare (20 sources) Polypharmacy ; 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: [Other manager intermediate (current) drug therapy] Onset: 08-23-2020 03-20-2023 Episodic Other connective tissue disease (20 sources) Right rotator cuff syndrome; 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: [Unspecified rotator cuff tear or rupture of right shoulder, not specified as traumatic] Onset: 01-03-2023 03-20-2023 Episodic Residual codes; unclassified (20 sources) Sleep disorder; 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: [Sleep disorder, unspecified] Onset: 01-03-2023 03-20-2023 Episodic Unclassified (1 source) Follow-up; 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: [Follow-up] Onset: 10-31-2017 Unclassified (1 source) New Patient; 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: [New Patient] Onset: 09-25-2017 Results Test Name Value Interpretation Reference Range Facility CNOVon 07-12-2023 CNOV Normal [facility] metabolic 2000 panelon 07-12-2023 Albumin [Mass/Vol] 3.9 g/dL Normal 3.9-4.9 [facility] Comment on above: Order Comment: Speci men Type: BLOOD SPECIMENOrdering Facility: [facility] Address: [address] [place] [address] Performed By: #### 2 4323-8, 58908-2, 59601-1 ####[facility] LABCLIA [id number] [place] [address] [place] ALP [Catalytic activity/Vol] 182 U/L High 38-113 [facility] Comment on above: Order Comment: Speci men Type: BLOOD SPECIMENOrdering Facility: [facility] Address: [address] [place] [address] Performed By: #### 2 4323-8, , 21287-4 ####[facility] LABCLIA [id number] [place] [address] [place] ALT [Catalytic activity/Vol] 47 U/L Normal 10-54 [facility] Comment on above: Order Comment: Speci men Type: BLOOD SPECIMENOrdering Facility: [facility] Address: [address] [place] [address] Performed By: #### 2 4323-8, , 56490-8 ####[facility] LABCLIA [id number] [place] [address] [place] Anion gap [Moles/Vol] 12 mmol/L Normal 9-18 [facility] Comment on above: Order Comment: Speci men Type: BLOOD SPECIMENOrdering Facility: [facility] Address: [address] [place] [address] Performed By: #### 2 4323-8, 49588-4, 66259-1 ####[facility] LABCLIA [id number] [place] [address] [place] AST [Catalytic activity/Vol] 32 U/L Normal 14-40 [facility] Comment on above: Order Comment: Speci men Type: BLOOD SPECIMENOrdering Facility: [facility] Address: [address] [place] [address] Performed By: #### 2 4323-8, 96736-8, 39703-4 ####[facility] LABCLIA [id number] [place] [address] [place] Bilirubin [Mass/Vol] 1.2 mg/dL Normal 0.2-1.3 [facility] Comment on above: Order Comment: Speci men Type: BLOOD SPECIMENOrdering Facility: [facility] Address: [address] [place] [address] Performed By: #### 2 4323-8, 74822-8, 61095-9 ####[facility] LABCLIA [id number] [place] [address] [place] Calcium [Mass/Vol] 9.8 mg/dL Normal 8.5-10.2 [facility] Comment on above: Order Comment: Speci men Type: BLOOD SPECIMENOrdering Facility: [facility] Address: [address] [place] [address] Performed By: #### 2 4323-8, 82230-7, 26110-8 ####[facility] LABCLIA [id number] [place] [address] [place] Chloride [Moles/Vol] 98 mmol/L Normal 97-105 [facility] Comment on above: Order Comment: Speci men Type: BLOOD SPECIMENOrdering Facility: [facility] Address: [address] [place] [address] Performed By: #### 2 4323-8, 46487-5, 02751-8 ####[facility] LABCLIA [id number] [place] [address] [place] CO2 [Moles/Vol] 29 mmol/L Normal 22-30 [facility] Comment on above: Order Comment: Speci men Type: BLOOD SPECIMENOrdering Facility: [facility] Address: [address] [place] [address] Performed By: #### 2 4323-8, 83200-5, 41752-0 ####[facility] LABCLIA [id number] [place] [id number] [place] Creatinine [Mass/Vol] 1.95 mg/dL High 0.73-1.22 [facility] Comment on above: Order Comment: Speci men Type: BLOOD SPECIMENOrdering Facility: [facility] Address: [address] [place] [address] Performed By: #### 2 4323-8, , 91843-4 ####[facility] LABIA [id number] [place] [address] [place] Creatinine and Glomerular filtration rate.predicted panel (S/P/Bld) 37 mL/min/1.73m??? Low >=60 [facility] Comment on above: Order Comment: Joseline men Type: BLOOD SPECIMENOrdering Facility: [facility] Address: [address] [place] [address] Result Comment: Syl mated Glomerular Filtration Rate (eGFR) is calculated using the 2020 CKD-EPI creatinine equation. This equation utilizes serum creatinine, sex, and age as parameters. The creatinine assay has traceable calibration to isotope dilution-mass spectrometry. Refer to KDIGO guidelines for clinical interpretation. In patients with unstable renal function, e.g. those with acute kidney injury, the eGFR may not accurately reflect actual GFR. Performed By: #### 2 4323-8, , 82093-2 ####[facility] LABIA [id number] [place] [id number] [place] Glucose [Mass/Vol] 177 mg/dL High 74-99 [facility] Comment on above: Order Comment: Speci men Type: BLOOD SPECIMENOrdering Facility: [facility] Address: [address] [place] [address] Result Comment: The [place] [employer] (ADA) provides guidance for cutoff values for fasting glucose and random glucose. The ADA defines fasting as no caloric intake for at least 8 hours. Fasting plasma glucose results between 100 to 125 mg/dL indicate increased risk for diabetes (prediabetes).Fasting plasma glucose results greater than or equal to 126 mg/dL meet the criteria for diagnosis of diabetes. In the absence of unequivocal hyperglycemia, results should be confirmed by repeat testing. In a patient with classic symptoms of hyperglycemia or hyperglycemic crisis, random plasma glucose results greater than or equal to 200 mg/dL meet the criteria for diagnosis of diabetes.Reference: Standards of Medical Care in Diabetes 2016, [place] [employer]. Diabetes Care. 2016.39(Suppl 1). Performed By: #### 2 4323-8, , 38885-1 ####[facility] LABCLIA [id number] [place] [address] [place] Potassium [Moles/Vol] 3.9 mmol/L Normal 3.7-5.1 [facility] Comment on above: Order Comment: Speci men Type: BLOOD SPECIMENOrdering Facility: [facility] Address: [address] [place] [address] Performed By: #### 2 4323-8, , 34238-1 ####[facility] LABCLIA [id number] [place] [address] [place] Protein [Mass/Vol] 7.5 g/dL Normal 6.3-8.0 [facility] Comment on above: Order Comment: Speci men Type: BLOOD SPECIMENOrdering Facility: [facility] Address: [address] [place] [address] Performed By: #### 2 4323-8, , 31388-4 ####[facility] LABCLIA [id number] [place] [id number] [place] Sodium [Moles/Vol] 139 mmol/L Normal 136-144 [facility] Comment on above: Order Comment: Speci men Type: BLOOD SPECIMENOrdering Facility: [facility] Address: [address] [place] [address] Performed By: #### 2 4323-8, , 77600-1 ####[facility] LABCLIA [id number] [place] [address] [place] Urea nitrogen [Mass/Vol] 47 mg/dL High 9-24 [facility] Comment on above: Order Comment: Speci men Type: BLOOD SPECIMENOrdering Facility: [facility] Address: [address] [place] [address] Performed By: #### 2 4323-8, 14320-3, 21626-0 ####[facility] [id number] [place] [address] [place] Magnesium [facility] 07-12 Magnesium [Mass/Vol] 2.4 mg/dL High 1.7-2.3 [facility] Comment on above: Order Comment: Speci men Type: BLOOD SPECIMENOrdering Facility: [facility] Address: [address] [place] [address] Performed By: #### 2 4323-8, 43981-6, 16890-4 ####[facility] [id number] [place] [address] [place] NT-proBNP [facility] 07-12 Natriuretic peptide.B prohormone N-Terminal [Mass/Vol] 4783 pg/mL High <125 [facility] Comment on above: Order Comment: Speci men Type: BLOOD SPECIMENOrdering Facility: [facility] Address: [address] [place] [address] Performed By: #### 2 4323-8, 84135-9, 42420-3 ####[facility] [id number] [place] [address] [place] ICD REMOTE CHECKon 3 AV Delay Adaptive Paced Minimum (ms) 140 ms [facility] AV Delay Adaptive Sensed Minimum (ms) 100 ms [facility] Federico LV Pacing Amplitude (volts) 2.3 V [facility] Federico LV Pacing Pulse Width (ms) 0.5 ms [facility] federico LV Sensing Amplitude (mvolts) 1.0 mV [facility] Federico RA Pacing Amplitude (volts) 2.0 V [facility] Federico RA Pacing Polarity BI [facility] Federico RA Pacing Pulse Width (ms) 0.4 ms [facility] Federico RA Sensing Amplitude (mvolts) 0.25 mV [facility] Federico RA Sensing Polarity BI [facility] Federico RV Pacing Amplitude (volts) 2.0 V [facility] Federico RV Pacing Polarity BI [facility] Federico RV Pacing Pulse Width (ms) 0.4 ms [facility] Federico RV Sensing Amplitude (mvolts) 0.3 mV [facility] Federico RV Sensing Polarity BI [facility] Detection Configuration (Vent) 2 - Zone [facility] FastVT_Detection Interval 300 ms [facility] FastVT_Therapy Configuration 1 ATP(s) + 8 Shock(s) [facility] ICD FastVT DetectionStatus ENABLED [facility] ICD-AMS EPISODES 170 {beats}/min [facility] ICD-ATP Episodes (Vent) 0 [facility] ICD-ATRIALFIBRILLATIO N 7 [facility] ICD-ATRIALTACHYCARDIA 7 [facility] ICD-Device Mfg BSX [facility] ICD-LEADIMPEDANCEATRI AL 821 ohm [facility] ICD-Percent Pacing (Atrial) 0 % [facility] ICD-Percent Pacing (Vent) 64 % [facility] ICD-Shocks Aborted (Vent) 0 [facility] [id number] 0 [facility] ICD-SHOCKSABORTED 0 [facility] ICD-SHOCKSDELIVEREDVE NTRICULAR 0 [facility] ICD-Ventricular Fibrillation 0 [facility] Implant Date 10/18/2017 [facility] Lead Impedance (LV) 1064 ohm [facility] Lead Impedance (RV) 602 ohm [facility] Lead Impedance High Voltage 96 ohm [facility] Lead1 Mfg BSX [facility] Lead2 Mfg BSX [facility] Lead3 Mfg BSX [facility] Location LV [facility] Location RA [facility] Location RV [facility] Lower Rate (bpm) 60 {beats}/min [facility] LV PACING % 92 % [facility] Max Sensor Rate (bpm) 130 {beats}/min [facility] MDT_PROG_TACHY_ZONE_D ETECTIONS_STATUS ENABLED [facility] Model G247 VIGILANT X4 WINDER OPERATOR-D Cl [facility] Model 4671 Acuity X4 Straight C [facility] Model 7841 Ingevity + MRI [facility] Model 0292 [employer] Relianc e 4-Site SG [facility] Pacing Mode DDD [facility] Serial Number [id number] [facility] Serial Number [id number] [facility] Serial Number [id number] [facility] Serial Number [id number] [facility] Test Charge Time 9.9 s [facility] Therapy Status (Vent) Enabled [facility] Thresh LV Capture Amplitude (volts) 1.1 V [facility] Thresh LV Capture Duration (ms) 0.5 ms [facility] Thresh RV Capture Amplitude (VOLTS) 0.6 V [facility] Thresh RV Capture Duration (MS) 0.4 ms [facility] Tracking Rate (bpm) 130 {beats}/min [facility] VF Zone Detection Interval 300 ms [facility] VF Zone Therapy Configuration 1 ATP(s) + 8 Shock(s) [facility] No Panel Informationon 07-04 BLANK _ [facility] ICD-ATRIALTACHYCARDIA 0 [facility] ICD-Fast Ventricular Tachycardia 0 [facility] Implant Date 03/31/2023 [facility] CNNURSEon 06-27-2023 CNNURSE Normal [facility] CNOVon 06-27-2023 CNOV Normal [facility] ANES POSTPROC EVALon 023 ANES POSTPROC EVAL Normal [facility] ANES PRE-OPon 06-16-2023 ANES PRE-OP Normal [facility] Basic metabolic 2000 panelon 06-16-2023 Anion gap [Moles/Vol] 14 mmol/L Normal 9-18 [facility] Comment on above: Order Comment: Speci men Type: BLOOD SPECIMENOrdering Facility: [facility] Address: [address] [place] [address] Performed By: #### 2 4321-2 ####[facility] LABCLIA [id number] [facility] [place] [address] [place] Calcium [Mass/Vol] 10.2 mg/dL Normal 8.5-10.2 [facility] Comment on above: Order Comment: Speci men Type: BLOOD SPECIMENOrdering Facility: [facility] Address: [address] [place] [address] Performed By: #### 2 4321-2 ####[facility] LABCLIA [id number] [place] [address] [place] Chloride [Moles/Vol] 98 mmol/L Normal 97-105 [facility] Comment on above: Order Comment: Speci men Type: BLOOD SPECIMENOrdering Facility: [facility] Address: [address] [place] [address] Performed By: #### 2 4321-2 ####[facility] LABCLIA [id number] [place] [address] [place] CO2 [Moles/Vol] 25 mmol/L Normal 22-30 [facility] Comment on above: Order Comment: Speci men Type: BLOOD SPECIMENOrdering Facility: [facility] Address: [address] [place] [address] Performed By: #### 2 4321-2 ####[facility] LABCLIA [id number] [place] [address] [place] Creatinine [Mass/Vol] 2.00 mg/dL High 0.73-1.22 [facility] Comment on above: Order Comment: Speci men Type: BLOOD SPECIMENOrdering Facility: [facility] Address: [address] [place] [address] Performed By: #### 2 4321-2 ####[facility] LABCLIA [id number] [place] [address] [place] Creatinine and Glomerular filtration rate.predicted panel (S/P/Bld) 36 mL/min/1.73m??? Low >=60 [facility] Comment on above: Order Comment: Speci men Type: BLOOD SPECIMENOrdering Facility: [facility] Address: [address] [place] [address] Result Comment: Syl mated Glomerular Filtration Rate (eGFR) is calculated using the 2020 CKD-EPI creatinine equation. This equation utilizes serum creatinine, sex, and age as parameters. The creatinine assay has traceable calibration to isotope dilution-mass spectrometry. Refer to KDIGO guidelines for clinical interpretation. In patients with unstable renal function, e.g. those with acute kidney injury, the eGFR may not accurately reflect actual GFR. Performed By: #### 2 4321-2 ####[facility] LABIA [id number] [place] [address] [place] Glucose [Mass/Vol] 216 mg/dL High 74-99 [facility] Comment on above: Order Comment: Joseline clemons Type: BLOOD SPECIMENOrdering Facility: [facility] Address: [address] [place] [address] Result Comment: The [place] [employer] (ADA) provides guidance for cutoff values for fasting glucose and random glucose. The ADA defines fasting as no caloric intake for at least 8 hours. Fasting plasma glucose results between 100 to 125 mg/dL indicate increased risk for diabetes (prediabetes).Fasting plasma glucose results greater than or equal to 126 mg/dL meet the criteria for diagnosis of diabetes. In the absence of unequivocal hyperglycemia, results should be confirmed by repeat testing. In a patient with classic symptoms of hyperglycemia or hyperglycemic crisis, random plasma glucose results greater than or equal to 200 mg/dL meet the criteria for diagnosis of diabetes.Reference: Standards of Medical Care in Diabetes 2016, [place] [employer]. Diabetes Care. 2016.39(Suppl 1). Performed By: #### 2 4321-2 ####[facility] LABIA [id number] [place] [address] [place] Potassium [Moles/Vol] 4.3 mmol/L Normal 3.7-5.1 [facility] Comment on above: Order Comment: Joseline clemons Type: BLOOD SPECIMENOrdering Facility: [facility] Address: [address] [place] [id number] Performed By: #### 2 4321-2 ####[facility] LABIA [id number] [place] [address] [place] Sodium [Moles/Vol] 137 mmol/L Normal 136-144 [facility] Comment on above: Order Comment: Joseline clemons Type: BLOOD SPECIMENOrdering Facility: [facility] Address: [address] [place] [address] Performed By: #### 2 4321-2 ####[facility] LABCLIA [id number] [place] [id number] [place] Urea nitrogen [Mass/Vol] 59 mg/dL High 9-24 [facility] Comment on above: Order Comment: Speci men Type: BLOOD SPECIMENOrdering Facility: [facility] Address: [address] [place] [id number] Performed By: #### 2 4321-2 ####[facility] LABCLIA [id number] [place] [id number] [place] CNOVon 06-16-2023 CNOV Normal [facility] ECG COMPLETEon 06-16-2023 ECG COMPLETE Normal [facility] ECG COMPLETE Normal [facility] HISTORY PHYSICALon 3 HISTORY PHYSICAL Normal [facility] ICD CLINIC CHECKon 3 AV Delay Adaptive Paced Minimum (ms) 140 ms [facility] AV Delay Adaptive Sensed Minimum (ms) 100 ms [facility] Federico LV Pacing Amplitude (volts) 2.3 V [facility] Federico LV Pacing Pulse Width (ms) 0.5 ms [facility] federico LV Sensing Amplitude (mvolts) 1.0 mV [facility] Federico RA Pacing Amplitude (volts) 5.0 V [facility] Federico RA Pacing Polarity BI [facility] Federico RA Pacing Pulse Width (ms) 0.4 ms [facility] Federico RA Sensing Amplitude (mvolts) 0.25 mV [facility] Federico RA Sensing Polarity BI [facility] Federico RV Pacing Amplitude (volts) 2.0 V [facility] Federico RV Pacing Polarity BI [facility] Federico RV Pacing Pulse Width (ms) 0.4 ms [facility] Federico RV Sensing Amplitude (mvolts) 0.3 mV [facility] Federico RV Sensing Polarity BI [facility] Detection Configuration (Vent) 2 - Zone [facility] FastVT_Detection Interval 300 ms [facility] FastVT_Therapy Configuration 1 ATP(s) + 8 Shock(s) [facility] ICD FastVT DetectionStatus ENABLED [facility] ICD-AMS EPISODES 170 {beats}/min [facility] ICD-ATP Episodes (Vent) 0 [facility] ICD-ATRIALFIBRILLATIO N 3 [facility] ICD-Device Mfg BSX [facility] ICD-Fast Ventricular Tachycardia 1 [facility] ICD-LEADIMPEDANCEATRI AL 838 ohm [facility] ICD-Percent Pacing (Atrial) 0 % [facility] ICD-Percent Pacing (Vent) 83 % [facility] ICD-Shocks Aborted (Vent) 0 [facility] [id number] 0 [facility] ICD-SHOCKSABORTED 0 [facility] ICD-SHOCKSDELIVEREDVE NTRICULAR 0 [facility] ICD-Ventricular Fibrillation 0 [facility] Implant Date 10/18/2017 [facility] Lead Impedance (LV) 1043 ohm [facility] Lead Impedance (RV) 566 ohm [facility] Lead Impedance High Voltage 87 ohm [facility] Lead1 Mfg BSX [facility] Lead2 Mfg BSX [facility] Lead3 Mfg BSX [facility] Location LV [facility] Location RA [facility] Location RV [facility] Lower Rate (bpm) 60 {beats}/min [facility] LV PACING % 92 % [facility] Max Sensor Rate (bpm) 130 {beats}/min [facility] MDT_PROG_TACHY_ZONE_D ETECTIONS_STATUS ENABLED [facility] Model G247 VIGILANT X4 WINDER OPERATOR-D Cl [facility] Model 4671 Acuity X4 Straight C [facility] Model 7841 Ingevity + MRI [facility] Model 0292 [employer] Relianc e 4-Site SG [facility] Pacing Mode DDD [facility] Serial Number [id number] [facility] Serial Number [id number] [facility] Serial Number [id number] [facility] Serial Number [id number] [facility] Test Charge Time 9.9 s [facility] Therapy Status (Vent) Enabled [facility] Thresh LV Capture Amplitude (volts) 1.1 V [facility] Thresh LV Capture Duration (ms) 0.5 ms [facility] Thresh RV Capture Amplitude (VOLTS) 0.7 V [facility] Thresh RV Capture Duration (MS) 0.4 ms [facility] Tracking Rate (bpm) 130 {beats}/min [facility] VF Zone Detection Interval 300 ms [facility] VF Zone Therapy Configuration 1 ATP(s) + 8 Shock(s) [facility] No Panel Informationon 11-10 -2023 BLANK _ [facility] ICD-Fast Ventricular Tachycardia 0 [facility] Implant Date 03/31/2023 [facility] CNCNPATEDon 06-15-2023 CNCNPATED Normal [facility] ICD REMOTE CHECKon 3 AV Delay Adaptive Paced Minimum (ms) 140 ms [facility] AV Delay Adaptive Sensed Minimum (ms) 100 ms [facility] Federico LV Pacing Amplitude (volts) 2.3 V [facility] Federico LV Pacing Pulse Width (ms) 0.5 ms [facility] federico LV Sensing Amplitude (mvolts) 1.0 mV [facility] Federico RA Pacing Amplitude (volts) 5.0 V [facility] Federico RA Pacing Polarity BI [facility] Federico RA Pacing Pulse Width (ms) 0.4 ms [facility] Federico RA Sensing Amplitude (mvolts) 0.25 mV [facility] Federico RA Sensing Polarity BI [facility] Federico RV Pacing Amplitude (volts) 2.0 V [facility] Federico RV Pacing Polarity BI [facility] Federico RV Pacing Pulse Width (ms) 0.4 ms [facility] Federico RV Sensing Amplitude (mvolts) 0.3 mV [facility] Federico RV Sensing Polarity BI [facility] Detection Configuration (Vent) 2 - Zone [facility] FastVT_Detection Interval 300 ms [facility] FastVT_Therapy Configuration 1 ATP(s) + 8 Shock(s) [facility] ICD FastVT DetectionStatus ENABLED [facility] ICD-AMS EPISODES 170 {beats}/min [facility] ICD-ATP Episodes (Vent) 0 [facility] ICD-ATRIALFIBRILLATIO N 3 [facility] ICD-ATRIALTACHYCARDIA 3 [facility] ICD-Device Mfg BSX [facility] ICD-Fast Ventricular Tachycardia 1 [facility] ICD-LEADIMPEDANCEATRI AL 800 ohm [facility] ICD-Percent Pacing (Atrial) 0 % [facility] ICD-Percent Pacing (Vent) 83 % [facility] ICD-Shocks Aborted (Vent) 0 [facility] [id number] 0 [facility] ICD-SHOCKSABORTED 0 [facility] ICD-SHOCKSDELIVEREDVE NTRICULAR 0 [facility] ICD-Ventricular Fibrillation 0 [facility] Implant Date 10/18/2017 [facility] Lead Impedance (LV) 1029 ohm [facility] Lead Impedance (RV) 551 ohm [facility] Lead Impedance High Voltage 81 ohm [facility] Lead1 Mfg BSX [facility] Lead2 Mfg BSX [facility] Lead3 Mfg BSX [facility] Location LV [facility] Location RA [facility] Location RV [facility] Lower Rate (bpm) 60 {beats}/min [facility] LV PACING % 93 % [facility] Max Sensor Rate (bpm) 130 {beats}/min [facility] MDT_PROG_TACHY_ZONE_D ETECTIONS_STATUS ENABLED [facility] Model G247 VIGILANT X4 WINDER OPERATOR-D Cl [facility] Model 4671 Acuity X4 Straight C [facility] Model 7841 Ingevity + MRI [facility] Model 0292 [employer] Relianc e 4-Site SG [facility] Pacing Mode DDD [facility] Serial Number [id number] [facility] Serial Number [id number] [facility] Serial Number [id number] [facility] Serial Number [id number] [facility] Test Charge Time 9.9 s [facility] Therapy Status (Vent) Enabled [facility] Thresh LV Capture Amplitude (volts) 1.1 V [facility] Thresh LV Capture Duration (ms) 0.5 ms [facility] Thresh RV Capture Amplitude (VOLTS) 0.7 V [facility] Thresh RV Capture Duration (MS) 0.4 ms [facility] Tracking Rate (bpm) 130 {beats}/min [facility] VF Zone Detection Interval 300 ms [facility] VF Zone Therapy Configuration 1 ATP(s) + 8 Shock(s) [facility] No Panel Informationon 06-12 BLANK _ [facility] ICD-ATRIALTACHYCARDIA 1 [facility] ICD-ATRIALTACHYCARDIA 0 [facility] ICD-Fast Ventricular Tachycardia 0 [facility] Implant Date 03/31/2023 [facility] CNPNon 06-07-2023 CNPN Normal [facility] ICD REMOTE CHECKon AV Delay Adaptive Paced Minimum (ms) 140 ms [facility] AV Delay Adaptive Sensed Minimum (ms) 100 ms [facility] Federico LV Pacing Amplitude (volts) 2.3 V [facility] Federico LV Pacing Pulse Width (ms) 0.5 ms [facility] federico LV Sensing Amplitude (mvolts) 1.0 mV [facility] Federico RA Pacing Amplitude (volts) 5.0 V [facility] Federico RA Pacing Polarity BI [facility] Federico RA Pacing Pulse Width (ms) 0.4 ms [facility] Federico RA Sensing Amplitude (mvolts) 0.25 mV [facility] Federico RA Sensing Polarity BI [facility] Federico RV Pacing Amplitude (volts) 2.0 V [facility] Federico RV Pacing Polarity BI [facility] Federico RV Pacing Pulse Width (ms) 0.4 ms [facility] Federico RV Sensing Amplitude (mvolts) 0.3 mV [facility] Federico RV Sensing Polarity BI [facility] Detection Configuration (Vent) 2 - Zone [facility] FastVT_Detection Interval 300 ms [facility] FastVT_Therapy Configuration 1 ATP(s) + 8 Shock(s) [facility] ICD FastVT DetectionStatus ENABLED [facility] ICD-AMS EPISODES 170 {beats}/min [facility] ICD-ATP Episodes (Vent) 0 [facility] ICD-ATRIALFIBRILLATIO N 3 [facility] ICD-ATRIALTACHYCARDIA 3 [facility] ICD-Device Mfg BSX [facility] ICD-Fast Ventricular Tachycardia 1 [facility] ICD-LEADIMPEDANCEATRI AL 765 ohm [facility] ICD-Percent Pacing (Atrial) 0 % [facility] ICD-Percent Pacing (Vent) 83 % [facility] ICD-Shocks Aborted (Vent) 0 [facility] [id number] 0 [facility] ICD-SHOCKSABORTED 0 [facility] ICD-SHOCKSDELIVEREDVE NTRICULAR 0 [facility] ICD-Ventricular Fibrillation 0 [facility] Implant Date 10/18/2017 [facility] Lead Impedance (LV) 966 ohm [facility] Lead Impedance (RV) 554 ohm [facility] Lead Impedance High Voltage 81 ohm [facility] Lead1 Mfg X [facility] Lead2 Mfg X [facility] Lead3 Mfg BSX [facility] Location LV [facility] Location RA [facility] Location RV [facility] Lower Rate (bpm) 60 {beats}/min [facility] LV PACING % 94 % [facility] Max Sensor Rate (bpm) 130 {beats}/min [facility] MDT_PROG_TACHY_ZONE_D ETECTIONS_STATUS ENABLED [facility] Model G247 VIGILANT X4 WINDER OPERATOR-D Cl [facility] Model 4671 Acuity X4 Straight C [facility] Model 7841 Ingevity + MRI [facility] Model 0292 [employer] SG [facility] Pacing Mode DDD [facility] Serial Number [id number] [facility] Serial Number [id number] [facility] Serial Number [id number] [facility] Serial Number [id number] [facility] Test Charge Time 9.9 s [facility] Therapy Status (Vent) Enabled [facility] Thresh LV Capture Amplitude (volts) 1.0 V [facility] Thresh LV Capture Duration (ms) 0.5 ms [facility] Thresh RV Capture Amplitude (VOLTS) 0.7 V [facility] Thresh RV Capture Duration (MS) 0.4 ms [facility] Tracking Rate (bpm) 130 {beats}/min [facility] VF Zone Detection Interval 300 ms [facility] VF Zone Therapy Configuration 1 ATP(s) + 8 Shock(s) [facility] No Panel Informationon 06-05 BLANK _ [facility] ICD-ATRIALTACHYCARDIA 1 [facility] ICD-ATRIALTACHYCARDIA 0 [facility] ICD-Fast Ventricular Tachycardia 0 [facility] Implant Date 03/31/2023 [facility] CNPNon 05-24-2023 CNPN Normal [facility] ICD REMOTE CHECKon AV Delay Adaptive Paced Minimum (ms) 140 ms [facility] AV Delay Adaptive Sensed Minimum (ms) 100 ms [facility] Federico LV Pacing Amplitude (volts) 2.3 V [facility]ico LV Pacing Pulse Width (ms) 0.5 ms [facility] federico LV Sensing Amplitude (mvolts) 1.0 mV [facility] Federico RA Pacing Amplitude (volts) 5.0 V [facility] Federico RA Pacing Polarity BI [facility] Federico RA Pacing Pulse Width (ms) 0.4 ms [facility] Federico RA Sensing Amplitude (mvolts) 0.25 mV [facility] Federico RA Sensing Polarity BI [facility] Federico RV Pacing Amplitude (volts) 2.0 V [facility] Federico RV Pacing Polarity BI [facility] Federico RV Pacing Pulse Width (ms) 0.4 ms [facility] Federico RV Sensing Amplitude (mvolts) 0.3 mV [facility] Federico RV Sensing Polarity BI [facility] Detection Configuration (Vent) 2 - Zone [facility] FastVT_Detection Interval 300 ms [facility] FastVT_Therapy Configuration 1 ATP(s) + 8 Shock(s) [facility] ICD FastVT DetectionStatus ENABLED [facility] ICD-AMS EPISODES 170 {beats}/min [facility] ICD-ATP Episodes (Vent) 0 [facility] ICD-ATRIALFIBRILLATIO N 1 [facility] ICD-Device Mfg BSX [facility] ICD-LEADIMPEDANCEATRI AL 804 ohm [facility] ICD-Percent Pacing (Atrial) 0 % [facility] ICD-Percent Pacing (Vent) 83 % [facility] ICD-Shocks Aborted (Vent) 0 [facility] [id number] 0 [facility] ICD-SHOCKSABORTED 0 [facility] ICD-SHOCKSDELIVEREDVE NTRICULAR 0 [facility] ICD-Ventricular Fibrillation 0 [facility] Implant Date 10/18/2017 [facility] Lead Impedance (LV) 1060 ohm [facility] Lead Impedance (RV) 529 ohm [facility] Lead Impedance High Voltage 84 ohm [facility] Lead1 Mfg BSX [facility] Lead2 Mfg BSX [facility] Lead3 Mfg BSX [facility] Location LV [facility] Location RA [facility] Location RV [facility] Lower Rate (bpm) 60 {beats}/min [facility] LV PACING % 93 % [facility] Max Sensor Rate (bpm) 130 {beats}/min [facility] MDT_PROG_TACHY_ZONE_D ETECTIONS_STATUS ENABLED [facility] Model G247 VIGILANT X4 WINDER OPERATOR-D Cl [facility] Model 4671 Acuity X4 Straight C [facility] Model 7841 Ingevity + MRI [facility] Model 0292 [employer] SG [facility] Pacing Mode DDD [facility] Serial Number [id number] [facility] Serial Number [id number] [facility] Serial Number [id number] [facility] Serial Number [id number] [facility] Test Charge Time 9.9 s [facility] Therapy Status (Vent) Enabled [facility] Thresh LV Capture Amplitude (volts) 1.3 V [facility] Thresh LV Capture Duration (ms) 0.5 ms [facility] Thresh RV Capture Amplitude (VOLTS) 0.7 V [facility] Thresh RV Capture Duration (MS) 0.4 ms [facility] Tracking Rate (bpm) 130 {beats}/min [facility] VF Zone Detection Interval 300 ms [facility] VF Zone Therapy Configuration 1 ATP(s) + 8 Shock(s) [facility] No Panel Informationon 05-19 BLANK _ [facility] ICD-ATRIALTACHYCARDIA 1 [facility] ICD-ATRIALTACHYCARDIA 0 [facility] ICD-Fast Ventricular Tachycardia 0 [facility] Implant Date 03/31/2023 [facility] CNPNon 05-16-2023 CNPN Normal [facility] CNPNon 05-15-2023 CNPN Normal [facility] ICD CLINIC CHECKon AV Delay Adaptive Paced Minimum (ms) 140 ms [facility] AV Delay Adaptive Sensed Minimum (ms) 100 ms [facility] Federico LV Pacing Amplitude (volts) 2.3 V [facility] LV Pacing Pulse Width (ms) 0.5 ms [facility] federico LV Sensing Amplitude (mvolts) 1.0 mV [facility] Fed[facility]ico RA Pacing Amplitude (volts) 5.0 V [facility] Federico RA Pacing Polarity BI [facility] Federico RA Pacing Pulse Width (ms) 0.4 ms [facility] Federico RA Sensing Amplitude (mvolts) 0.25 mV [facility] Federico RA Sensing Polarity BI [facility] Fed[facility]ico RV Pacing Amplitude (volts) 2.0 V [facility]ico RV Pacing Polarity BI [facility] Fed[facility]ico RV Pacing Pulse Width (ms) 0.4 ms [facility] Federico RV Sensing Amplitude (mvolts) 0.3 mV [facility] Federico RV Sensing Polarity BI [facility] Detection Configuration (Vent) 2 - Zone [facility] FastVT_Detection Interval 300 ms [facility] FastVT_Therapy Configuration 1 ATP(s) + 8 Shock(s) [facility] ICD FastVT DetectionStatus ENABLED [facility] ICD-AMS EPISODES 170 {beats}/min [facility] ICD-ATP Episodes (Vent) 0 [facility] ICD-ATRIALFIBRILLATIO N 6 [facility] ICD-Device Mfg BSX [facility] ICD-LEADIMPEDANCEATRI AL 816 ohm [facility] ICD-Percent Pacing (Atrial) 0 % [facility] ICD-Percent Pacing (Vent) 52 % [facility] ICD-Rhythm Atrial Fibrillation [facility] ICD-Shocks Aborted (Vent) 0 [facility] [id number] 0 [facility] ICD-SHOCKSABORTED 0 [facility] ICD-SHOCKSDELIVEREDVE NTRICULAR 0 [facility] ICD-Ventricular Fibrillation 0 [facility] Implant Date 10/18/2017 [facility] Lead Impedance (LV) 1029 ohm [facility] Lead Impedance (RV) 532 ohm [facility] Lead Impedance High Voltage 91 ohm [facility] Lead1 Mfg BSX [facility] Lead2 Mfg BSX [facility] Lead3 Mfg BSX [facility] Location LV [facility] Location RA [facility] Location RV [facility] Lower Rate (bpm) 60 {beats}/min [facility] LV PACING % 91 % [facility] Max Sensor Rate (bpm) 130 {beats}/min [facility] MDT_PROG_TACHY_ZONE_D ETECTIONS_STATUS ENABLED [facility] Model G247 VIGILANT X4 WINDER OPERATOR-D Cl [facility] Model 4671 Acuity X4 Straight C [facility] Model 7841 Ingevity + MRI [facility] Model 0292 [employer] SG [facility] Pacemaker Dependent? NO [facility] Pacing Mode DDD [facility] Serial Number [id number] [facility] Serial Number [id number] [facility] Serial Number [id number] [facility] Serial Number [id number] [facility] Test Charge Time 9.9 s [facility] Therapy Status (Vent) Enabled [facility] Thresh LV Capture Amplitude (volts) 1.1 V [facility] Thresh LV Capture Duration (ms) 1.0 ms [facility] Thresh RA Capture Amplitude (volts) 0.6 V [facility] Thresh RA Capture Duration (ms) 0.4 ms [facility] Thresh RA Sensing Amplitude (mvolts) 3 mV [facility] Thresh RV Capture Amplitude (VOLTS) 0.7 V [facility] Thresh RV Capture Duration (MS) 0.4 ms [facility] Thresh RV Sensing Amplitude (MVOLTS) 13.9 mV [facility] Tracking Rate (bpm) 130 {beats}/min [facility] VF Zone Detection Interval 300 ms [facility] VF Zone Therapy Configuration 1 ATP(s) + 8 Shock(s) [facility] No Panel Informationon 05-12 BLANK _ [facility] ICD-Fast Ventricular Tachycardia 0 [facility] Implant Date 03/31/2023 [facility] CNPNon 04-27-2023 CNPN Normal [facility] Basic metabolic 2000 panelon 04-26-2023 Anion gap [Moles/Vol] 15 mmol/L 9 - 18 mmol/L [facility] Calcium [Mass/Vol] 9.8 mg/dL 8.5 - 10. 2 mg/dL [facility] Chloride [Moles/Vol] 96 mmol/L Low 97 - 10 5 mmol/L [facility] CO2 [Moles/Vol] 24 mmol/L 22 - 30 mmol/L [facility] Creatinine [Mass/Vol] 2.07 mg/dL High 0.73 - 1.22 mg/dL [facility] Estimated Glomerular Filtration Rate 35 mL/min/1.73m Low >=60 mL/min/1.73 m [facility] Glucose [Mass/Vol] 100 mg/dL High 74 - 99 mg/dL [facility] Potassium [Moles/Vol] 4.6 mmol/L 3.7 - 5.1 mmol/L [facility] Sodium [Moles/Vol] 135 mmol/L Low 136 - 144 mmol/L [facility] Urea nitrogen [Mass/Vol] 77 mg/dL High 9 - 24 mg/dL [facility] Anion gap [Moles/Vol] 15 mmol/L Normal 9-18 [facility] Comment on above: Order Comment: Speci men Type: BLOOD SPECIMENOrdering Facility: [facility] Address: [address] [place] [address] Performed By: #### 2 4321-2, 06288-2 ####[facility] LABCLIA [id number] [place] [address] [place] Calcium [Mass/Vol] 9.8 mg/dL Normal 8.5-10.2 [facility] Comment on above: Order Comment: Speci men Type: BLOOD SPECIMENOrdering Facility: [facility] Address: [address] [place] [address] Performed By: #### 2 4321-2, 06533-7 ####[facility] LABCLIA [id number] [place] [address] [place] Chloride [Moles/Vol] 96 mmol/L Low 97-105 [facility] Comment on above: Order Comment: Speci men Type: BLOOD SPECIMENOrdering Facility: [facility] Address: [address] [place] [address] Performed By: #### 2 4321-2, 47043-0 ####[facility] LABIA [id number] [place] [address] [place] CO2 [Moles/Vol] 24 mmol/L Normal 22-30 [facility] Comment on above: Order Comment: Speci men Type: BLOOD SPECIMENOrdering Facility: [facility] Address: [address] [place] [address] Performed By: #### 2 4321-2, 09944-2 ####[facility] LABIA [id number] [address] [facility] Creatinine [Mass/Vol] 2.07 mg/dL High 0.73-1.22 [facility] Comment on above: Order Comment: Speci men Type: BLOOD SPECIMENOrdering Facility: [facility] Address: [address] [place] [address] Performed By: #### 2 4321-2, 32024-9 ####[facility] LABIA [id number] [address] Creatinine and Glomerular filtration rate.predicted panel (S/P/Bld) 35 mL/min/1.73m??? Low >=60 [facility] Comment on above: Order Comment: Speci men Type: BLOOD SPECIMENOrdering Facility: [facility] Address: [address] [place] [address] Result Comment: Syl mated Glomerular Filtration Rate (eGFR) is calculated using the 2020 CKD-EPI creatinine equation. This equation utilizes serum creatinine, sex, and age as parameters. The creatinine assay has traceable calibration to isotope dilution-mass spectrometry. Refer to KDIGO guidelines for clinical interpretation. In patients with unstable renal function, e.g. those with acute kidney injury, the eGFR may not accurately reflect actual GFR. Performed By: #### 2 4321-2, 99491-0 ####[facility] LABCLIA [id number] [place] [address] [place] Glucose [Mass/Vol] 100 mg/dL High 74-99 [facility] Comment on above: Order Comment: Speci men Type: BLOOD SPECIMENOrdering Facility: [facility] Address: [address] [place] [address] Result Comment: The [place] [employer] (ADA) provides guidance for cutoff values for fasting glucose and random glucose. The ADA defines fasting as no caloric intake for at least 8 hours. Fasting plasma glucose results between 100 to 125 mg/dL indicate increased risk for diabetes (prediabetes).Fasting plasma glucose results greater than or equal to 126 mg/dL meet the criteria for diagnosis of diabetes. In the absence of unequivocal hyperglycemia, results should be confirmed by repeat testing. In a patient with classic symptoms of hyperglycemia or hyperglycemic crisis, random plasma glucose results greater than or equal to 200 mg/dL meet the criteria for diagnosis of diabetes.Reference: Standards of Medical Care in Diabetes 2016, [place] [employer]. Diabetes Care. 2016.39(Suppl 1). Performed By: #### 2 4321-2, 47720-9 ####[facility] LABIA [id number] [place] [address] [place] Potassium [Moles/Vol] 4.6 mmol/L Normal 3.7-5.1 [facility] Comment on above: Order Comment: Speci men Type: BLOOD SPECIMENOrdering Facility: [facility] Address: [address] Performed By: #### 2 4321-2, 20600-8 ####[facility] LABIA [id number] [place] [address] [place] Sodium [Moles/Vol] 135 mmol/L Low 136-144 [facility] Comment on above: Order Comment: Speci men Type: BLOOD SPECIMENOrdering Facility: [facility] Address: [address] [place] [address] Performed By: #### 2 4321-2, 38808-0 ####[facility] LABCLIA [id number] [place] [address] [place] Urea nitrogen [Mass/Vol] 77 mg/dL High 9-24 [facility] Comment on above: Order Comment: Speci men Type: BLOOD SPECIMENOrdering Facility: [facility] Address: [address] [place] [address] Performed By: #### 2 4321-2, 06086-6 ####[facility] LABCLIA [id number] [place] [address] [place] CNCNPATEDon 04-26-2023 CNCNPATED Normal [facility] CNOVon 04-26-2023 CNOV Normal [facility] NT PRO BNPon 04-26-2023 Natriuretic peptide.B prohormone N-Terminal [Mass/Vol] 6843 pg/mL High <125 pg/mL [facility] NT-proBNP SerPl-mCncon 04-26 Natriuretic peptide.B prohormone N-Terminal [Mass/Vol] 6843 pg/mL High <125 [facility] Comment on above: Order Comment: Speci men Type: BLOOD SPECIMENOrdering Facility: [facility] Address: [address] [place] [address] Performed By: #### 2 4321-2, 32471-2 ####[facility] LABIA [id number] [place] [address] [place] CNPNon 04-19-2023 CNPN Normal [facility] CNPNon 04-14-2023 CNPN Normal [facility] CNPTOUTREACHon 04-14-2023 CNPTOUTREACH Normal [facility] CASE MANAGEMon 04-13-2023 CASE MANAGEM Normal [facility] CBC panel Auto (Bld)on 04-13 Erythrocyte distribution width (RBC) [Ratio] 19.7 % High 11.5-15.0 [facility] Comment on above: Order Comment: Speci men Type: BLOOD SPECIMENOrdering Facility: [facility] Address: [address] Performed By: #### 5 8410-2 ####[facility] LABCLIA [id number] [place] [address] [place] Hematocrit (Bld) [Volume fraction] 33.9 % Low 39.0-51.0 [facility] Comment on above: Order Comment: Speci men Type: BLOOD SPECIMENOrdering Facility: [facility] Address: [address] Performed By: #### 5 8410-2 ####[facility] LABIA [id number] [place] [address] [place] Hemoglobin (Bld) [Mass/Vol] 10.4 g/dL Low 13.0-17.0 [facility] Comment on above: Order Comment: Speci men Type: BLOOD SPECIMENOrdering Facility: [facility] Address: [address] [place] [address] Performed By: #### 5 8410-2 ####[facility] LABIA [id number] [place] [address] [place] MCH (RBC) [Entitic mass] 24.0 pg Low 26.0-34.0 [facility] Comment on above: Order Comment: Speci men Type: BLOOD SPECIMENOrdering Facility: [facility] Address: [address] Performed By: #### 5 8410-2 ####[facility] LABCLIA [id number] [place] [address] [place] MCHC (RBC) [Mass/Vol] 30.7 g/dL Normal 30.5-36.0 [facility] Comment on above: Order Comment: Speci men Type: BLOOD SPECIMENOrdering Facility: [facility] Address: [address] [place], [place] [address] Performed By: #### 5 8410-2 ####[facility] LABIA [id number] [place] [address] [place] MCV (RBC) [Entitic vol] 78.1 fL Low 80.0-100.0 [facility] Comment on above: Order Comment: Speci men Type: BLOOD SPECIMENOrdering Facility: [facility] Address: [address] [place] [address] Performed By: #### 5 8410-2 ####[facility] [id number] [place] [address] [place] Nucleated RBC (Bld) [#/Vol] 10*3/uL Normal <0.01 [facility] Comment on above: Order Comment: Speci men Type: BLOOD SPECIMENOrdering Facility: [facility] Address: [address] [place] [address] Performed By: #### 5 8410-2 ####[facility] [id number] [place] [address] [place] Platelet mean volume (Bld) [Entitic vol] 10.2 fL Normal 9.0-12.7 [facility] Comment on above: Order Comment: Speci men Type: BLOOD SPECIMENOrdering Facility: [facility] Address: [address] [place], [place] [address] Performed By: #### 5 8410-2 ####[facility] [id number] [place] [address] [place] Platelets (Bld) [#/Vol] 242 10*3/uL Normal 150-400 [facility] Comment on above: Order Comment: Speci men Type: BLOOD SPECIMENOrdering Facility: [facility] Address: [address] [place], [place] [address] Performed By: #### 5 8410-2 ####[facility] [id number] [place] [address] [place] RBC (Bld) [#/Vol] 4.34 10*6/uL Normal 4.20-6.00 [facility] Comment on above: Order Comment: Speci men Type: BLOOD SPECIMENOrdering Facility: [facility] Address: [address] [place], [place] [address] Performed By: #### 5 8410-2 ####[facility] LABCLIA [id number] [place] [address] [place] WBC (Bld) [#/Vol] 6.71 10*3/uL Normal 3.70-11.00 [facility] Comment on above: Order Comment: Speci men Type: BLOOD SPECIMENOrdering Facility: [facility] Address: [address] [place], [place] [address] Performed By: #### 5 8410-2 ####[facility] LABCLIA [id number] [place] [address] [place] CNDSon 04-13-2023 CNDS Normal [facility] Comprehensive metabolic 2000 panelon 04-13-2023 Albumin [Mass/Vol] 3.2 g/dL Low 3.9-4.9 [facility] Comment on above: Order Comment: Speci men Type: BLOOD SPECIMENOrdering Facility: [facility] Address: [address] [place], [place] [address] Performed By: #### 2 4323-8, 94926-0 ####[facility] LABCLIA [id number] [place] [address] [place] ALP [Catalytic activity/Vol] 162 U/L High 38-113 [facility] Comment on above: Order Comment: Speci men Type: BLOOD SPECIMENOrdering Facility: [facility] Address: [address] [place], [place] [address] Performed By: #### 2 4323-8, ####[facility] LABCLIA [id number] [place] [id number] [place] ALT [Catalytic activity/Vol] 45 U/L Normal 10-54 [facility] Comment on above: Order Comment: Speci men Type: BLOOD SPECIMENOrdering Facility: [facility] Address: [address] Performed By: #### 2 4323-8, ####[facility] LABCLIA [id number] [place] [address] [place] Anion gap [Moles/Vol] 13 mmol/L Normal 9-18 [facility] Comment on above: Order Comment: Speci men Type: BLOOD SPECIMENOrdering Facility: [facility] Address: [address] [place] [address] Performed By: #### 2 432-8, ####[facility] LABCLIA [id number] [place] [address] [place] AST [Catalytic activity/Vol] 42 U/L High 14-40 [facility] Comment on above: Order Comment: Speci men Type: BLOOD SPECIMENOrdering Facility: [facility] Address: [address] [place], [place] [address] Performed By: #### 2 4328, ####[facility] LABIA [id number] [place] [address] [place] Bilirubin [Mass/Vol] 0.9 mg/dL Normal 0.2-1.3 [facility] Comment on above: Order Comment: Speci men Type: BLOOD SPECIMENOrdering Facility: [facility] Address: [address] Performed By: #### 2 4323-8, ####[facility] LABIA [id number] [place] [address] [place] Calcium [Mass/Vol] 8.7 mg/dL Normal 8.5-10.2 [facility] Comment on above: Order Comment: Speci men Type: BLOOD SPECIMENOrdering Facility: [facility] Address: [address] [place] [address] Performed By: #### 2 4323-8, ####[facility] LABCLIA [id number] [place] [address] [place] Chloride [Moles/Vol] 94 mmol/L Low 97-105 [facility] Comment on above: Order Comment: Speci men Type: BLOOD SPECIMENOrdering Facility: [facility] Address: [address] Performed By: #### 2 4323-8, ####[facility] LABCLIA [id number] [place] [address] [place] CO2 [Moles/Vol] 25 mmol/L Normal 22-30 [facility] Comment on above: Order Comment: Speci men Type: BLOOD SPECIMENOrdering Facility: [facility] Address: [address] [place], [place] [address] Performed By: #### 2 43238, ####[facility] LABIA [id number] [place] [address] [place] Creatinine [Mass/Vol] 2.43 mg/dL High 0.73-1.22 [facility] Comment on above: Order Comment: Speci men Type: BLOOD SPECIMENOrdering Facility: [facility] Address: [address] [place], [place] [address] Performed By: #### 2 4328, ####[facility]IA [id number] [place] [address] [place] Creatinine and Glomerular filtration rate.predicted panel (S/P/Bld) 29 mL/min/1.73m??? Low >=60 [facility] Comment on above: Order Comment: Speci men Type: BLOOD SPECIMENOrdering Facility: [facility] Address: [address] [place], [place] [address] Result Comment: Syl mated Glomerular Filtration Rate (eGFR) is calculated using the 2020 CKD-EPI creatinine equation. This equation utilizes serum creatinine, sex, and age as parameters. The creatinine assay has traceable calibration to isotope dilution-mass spectrometry. Refer to KDIGO guidelines for clinical interpretation. In patients with unstable renal function, e.g. those with acute kidney injury, the eGFR may not accurately reflect actual GFR. Performed By: #### 2 4323-8, ####[facility] LABIA [id number] [place] [address] [place] Glucose [Mass/Vol] 108 mg/dL High 74-99 [facility] Comment on above: Order Comment: Speci men Type: BLOOD SPECIMENOrdering Facility: [facility] Address: [address] [address] Result Comment: The [place] [employer] (ADA) provides guidance for cutoff values for fasting glucose and random glucose. The ADA defines fasting as no caloric intake for at least 8 hours. Fasting plasma glucose results between 100 to 125 mg/dL indicate increased risk for diabetes (prediabetes).Fasting plasma glucose results greater than or equal to 126 mg/dL meet the criteria for diagnosis of diabetes. In the absence of unequivocal hyperglycemia, results should be confirmed by repeat testing. In a patient with classic symptoms of hyperglycemia or hyperglycemic crisis, random plasma glucose results greater than or equal to 200 mg/dL meet the criteria for diagnosis of diabetes.Reference: Standards of Medical Care in Diabetes 2016, [place] [employer]. Diabetes Care. 2016.39(Suppl 1). Performed By: #### 2 4323-8, ####[facility] LABIA [id number] [place] [id number] [place] Potassium [Moles/Vol] 5.0 mmol/L Normal 3.7-5.1 [facility] Comment on above: Order Comment: Joseline clemons Type: BLOOD SPECIMENOrdering Facility: [facility] Address: [address] [id number] Performed By: #### 2 4323-8, ####[facility]IA [id number] [place] [address] [place] Protein [Mass/Vol] 6.0 g/dL Low 6.3-8.0 [facility] Comment on above: Order Comment: Speci men Type: BLOOD SPECIMENOrdering Facility: [facility] Address: [address] [place] [address] Performed By: #### 2 4323-8, ####[facility] LABCLIA [id number] [place] [address] [place] Sodium [Moles/Vol] 132 mmol/L Low 136-144 [facility] Comment on above: Order Comment: Speci men Type: BLOOD SPECIMENOrdering Facility: [facility] Address: [address] [place] [address] Performed By: #### 2 4323-8, ####[facility] LABCLIA [id number] [place] [address] [place] Urea nitrogen [Mass/Vol] 62 mg/dL High 9-24 [facility] Comment on above: Order Comment: Speci men Type: BLOOD SPECIMENOrdering Facility: [facility] Address: [address] [place] [address] Performed By: #### 2 4323-8, ####[facility] LABCLIA [id number] [place] [address] [place] Magnesium SerPl-mCncon 04-13 Magnesium [Mass/Vol] 2.6 mg/dL High 1.7-2.3 [facility] Comment on above: Order Comment: Speci men Type: BLOOD SPECIMENOrdering Facility: [facility] Address: [address] [place], [place] [address] Performed By: #### 2 4323-8, ####[facility] LABCLIA [id number] [place] [id number] [place] NUTRITIONon 04-13-2023 NUTRITION Normal [facility] CBC panel Auto (Bld)on 04-12 Erythrocyte distribution width (RBC) [Ratio] 19.9 % High 11.5-15.0 [facility] Comment on above: Order Comment: Speci men Type: BLOOD SPECIMENOrdering Facility: [facility] Address: [address] [place] [address] Performed By: #### 5 8410-2 ####[facility] LABIA [id number] [address] OF [facility] Hematocrit (Bld) [Volume fraction] 38.2 % Low 39.0-51.0 [facility] Comment on above: Order Comment: Speci men Type: BLOOD SPECIMENOrdering Facility: [facility] Address: [address] [place] [address] Performed By: #### 5 8410-2 ####[facility] LABIA [id number] [address] STATES OF [facility] Hemoglobin (Bld) [Mass/Vol] 11.6 g/dL Low 13.0-17.0 [facility] Comment on above: Order Comment: Speci men Type: BLOOD SPECIMENOrdering Facility: [facility] Address: [address] [place] [address] Performed By: #### 5 8410-2 ####[facility] LABIA [id number] [place] [address] [place] MCH (RBC) [Entitic mass] 24.0 pg Low 26.0-34.0 [facility] Comment on above: Order Comment: Speci men Type: BLOOD SPECIMENOrdering Facility: [facility] Address: [address] [place] [address] Performed By: #### 5 8410-2 ####[facility] LABIA [id number] [place] [address] [place] MCHC (RBC) [Mass/Vol] 30.4 g/dL Low 30.5-36.0 [facility] Comment on above: Order Comment: Speci men Type: BLOOD SPECIMENOrdering Facility: [facility] Address: [address] Performed By: #### 5 8410-2 ####[facility] LABIA [id number] [place] [address] [place] MCV (RBC) [Entitic vol] 79.1 fL Low 80.0-100.0 [facility] Comment on above: Order Comment: Speci men Type: BLOOD SPECIMENOrdering Facility: [facility] Address: [address] Performed By: #### 5 8410-2 ####[facility] [id number] [place] [address] [place] Nucleated RBC (Bld) [#/Vol] 10*3/uL Normal <0.01 [facility] Comment on above: Order Comment: Speci men Type: BLOOD SPECIMENOrdering Facility: [facility] Address: [address] [place], [place] [address] Performed By: #### 5 8410-2 ####[facility] [id number] [place] [address] [place] Platelet mean volume (Bld) [Entitic vol] 9.8 fL Normal 9.0-12.7 [facility] Comment on above: Order Comment: Speci men Type: BLOOD SPECIMENOrdering Facility: [facility] Address: [address] Performed By: #### 5 8410-2 ####[facility] LABIA [id number] [place] [address] [place] Platelets (Bld) [#/Vol] 289 10*3/uL Normal 150-400 [facility] Comment on above: Order Comment: Speci men Type: BLOOD SPECIMENOrdering Facility: [facility] Address: [address] [place] [address] Performed By: #### 5 8410-2 ####[facility] LABIA [id number] [place] [address] [place] RBC (Bld) [#/Vol] 4.83 10*6/uL Normal 4.20-6.00 [facility] Comment on above: Order Comment: Speci men Type: BLOOD SPECIMENOrdering Facility: [facility] Address: [address] Performed By: #### 5 8410-2 ####[facility] LABIA [id number] [address] [place] WBC (Bld) [#/Vol] 7.66 10*3/uL Normal 3.70-11.00 [facility] Comment on above: Order Comment: Speci men Type: BLOOD SPECIMENOrdering Facility: [facility] Address: [address] [place], [place] [address] Performed By: #### 5 8410-2 ####[facility]IA [id number] [place] [address] [place] CONSULT PROGon 04-12-2023 CONSULT PROG Normal [facility] Comprehensive metabolic 2000 panelon 04-12-2023 Albumin [Mass/Vol] 3.9 g/dL Normal 3.9-4.9 [facility] Comment on above: Order Comment: Speci men Type: BLOOD SPECIMENOrdering Facility: [facility] Address: [address] Performed By: #### 2 4323-8, 79386-2 ####[facility] [id number] [place] [address] [place] ALP [Catalytic activity/Vol] 187 U/L High 38-113 [facility] Comment on above: Order Comment: Speci men Type: BLOOD SPECIMENOrdering Facility: [facility] Address: [address] [place], [place] [address] Performed By: #### 2 432-8, ####[facility] LABCLIA [id number] [place] [address] [place] ALT [Catalytic activity/Vol] 52 U/L Normal 10-54 [facility] Comment on above: Order Comment: Speci men Type: BLOOD SPECIMENOrdering Facility: [facility] Address: [address] [place], [place] [address] Performed By: #### 2 4322-8, ####[facility] LABCLIA [id number] [place] [address] [place] Anion gap [Moles/Vol] 16 mmol/L Normal 9-18 [facility] Comment on above: Order Comment: Speci men Type: BLOOD SPECIMENOrdering Facility: [facility] Address: [address] [place] [address] Performed By: #### 2 8, ####[facility] LABCLIA [id number] [place] [address] [place] AST [Catalytic activity/Vol] 55 U/L High 14-40 [facility] Comment on above: Order Comment: Speci men Type: BLOOD SPECIMENOrdering Facility: [facility] Address: [address] [place], [place] [address] Performed By: #### 2 8, ####[facility] LABCLIA [id number] [place] [address] [place] Bilirubin [Mass/Vol] 1.1 mg/dL Normal 0.2-1.3 [facility] Comment on above: Order Comment: Speci men Type: BLOOD SPECIMENOrdering Facility: [facility] Address: [address] Performed By: #### 2 4323-8, ####[facility] LABCLIA [id number] [place] [address] [place] Calcium [Mass/Vol] 9.6 mg/dL Normal 8.5-10.2 [facility] Comment on above: Order Comment: Speci men Type: BLOOD SPECIMENOrdering Facility: [facility] Address: [address] [place] [address] Performed By: #### 2 4323-8, ####[facility] LABCLIA [id number] [place] [address] [place] Chloride [Moles/Vol] 92 mmol/L Low 97-105 [facility] Comment on above: Order Comment: Speci men Type: BLOOD SPECIMENOrdering Facility: [facility] Address: [address] [place] [address] Performed By: #### 2 4328, ####[facility] LABCLIA [id number] [place] [address] [place] CO2 [Moles/Vol] 24 mmol/L Normal 22-30 [facility] Comment on above: Order Comment: Speci men Type: BLOOD SPECIMENOrdering Facility: [facility] Address: [address] [place] [address] Performed By: #### 2 4328, ####[facility] LABCLIA [id number] [place] [address] [place] Creatinine [Mass/Vol] 2.42 mg/dL High 0.73-1.22 [facility] Comment on above: Order Comment: Speci men Type: BLOOD SPECIMENOrdering Facility: [facility] Address: [address] [place], [place] [address] Performed By: #### 2 432-8, ####[facility] LABCLIA [id number] [place] [address] [place] Creatinine and Glomerular filtration rate.predicted panel (S/P/Bld) 29 mL/min/1.73m??? Low >=60 [facility] Comment on above: Order Comment: Joseline clemons Type: BLOOD SPECIMENOrdering Facility: [facility] Address: [address] [place] [address] Result Comment: Syl mated Glomerular Filtration Rate (eGFR) is calculated using the 2020 CKD-EPI creatinine equation. This equation utilizes serum creatinine, sex, and age as parameters. The creatinine assay has traceable calibration to isotope dilution-mass spectrometry. Refer to KDIGO guidelines for clinical interpretation. In patients with unstable renal function, e.g. those with acute kidney injury, the eGFR may not accurately reflect actual GFR. Performed By: #### 2 4323-8, 03270-9 ####[facility] LABIA [id number] [place] [address] [place] Glucose [Mass/Vol] 139 mg/dL High 74-99 [facility] Comment on above: Order Comment: Joseline clemons Type: BLOOD SPECIMENOrdering Facility: [facility] Address: [address] [place] [address] Result Comment: The [place] [employer] (ADA) provides guidance for cutoff values for fasting glucose and random glucose. The ADA defines fasting as no caloric intake for at least 8 hours. Fasting plasma glucose results between 100 to 125 mg/dL indicate increased risk for diabetes (prediabetes).Fasting plasma glucose results greater than or equal to 126 mg/dL meet the criteria for diagnosis of diabetes. In the absence of unequivocal hyperglycemia, results should be confirmed by repeat testing. In a patient with classic symptoms of hyperglycemia or hyperglycemic crisis, random plasma glucose results greater than or equal to 200 mg/dL meet the criteria for diagnosis of diabetes.Reference: Standards of Medical Care in Diabetes 2016, [place] [employer]. Diabetes Care. 2016.39(Suppl 1). Performed By: #### 2 4323-8, 55905-9 ####[facility] LABIA [id number] [place] [address] [place] Potassium [Moles/Vol] 5.0 mmol/L Normal 3.7-5.1 [facility] Comment on above: Order Comment: Speci men Type: BLOOD SPECIMENOrdering Facility: [facility] Address: [address] [address] Performed By: #### 2 432-8, ####[facility] LABCLIA [id number] [place] [address] [place] Protein [Mass/Vol] 7.1 g/dL Normal 6.3-8.0 [facility] Comment on above: Order Comment: Speci men Type: BLOOD SPECIMENOrdering Facility: [facility] Address: [address] [address] Performed By: #### 2 8, ####[facility] LABIA [id number] [place] [address] [place] Sodium [Moles/Vol] 132 mmol/L Low 136-144 [facility] Comment on above: Order Comment: Speci men Type: BLOOD SPECIMENOrdering Facility: [facility] Address: [address] [place] [address] Performed By: #### 2 8, ####[facility] LABIA [id number] [place] [address] [place] Urea nitrogen [Mass/Vol] 65 mg/dL High 9-24 [facility] Comment on above: Order Comment: Speci men Type: BLOOD SPECIMENOrdering Facility: [facility] Address: [address] Performed By: #### 2 4323-8, ####[facility] LABIA [id number] [place] [address] [place] Magnesium SerPl-mCncon 04-12 Magnesium [Mass/Vol] 2.9 mg/dL High 1.7-2.3 [facility] Comment on above: Order Comment: Speci men Type: BLOOD SPECIMENOrdering Facility: [facility] Address: [address] [place] [address] Performed By: #### 2 4323-8, 31251-8 ####[facility]IA [id number] [place] [address] [place] NURSING PROGon 04-12-2023 NURSING PROG Normal [facility] CASE MANAGEMon 04-11-2023 CASE MANAGEM Normal [facility] CBC panel Auto (Bld)on 04-11 Erythrocyte distribution width (RBC) [Ratio] 19.9 % High 11.5-15.0 [facility] Comment on above: Order Comment: Speci men Type: BLOOD SPECIMENOrdering Facility: [facility] Address: [address] [place] [address] Performed By: #### 5 8410-2 ####[facility] LABIA [id number] [address] [place] Hematocrit (Bld) [Volume fraction] 37.9 % Low 39.0-51.0 [facility] Comment on above: Order Comment: Speci men Type: BLOOD SPECIMENOrdering Facility: [facility] Address: [address] [place] [address] Performed By: #### 5 8410-2 ####[facility]IA [id number] [place] [address] [place] Hemoglobin (Bld) [Mass/Vol] 11.5 g/dL Low 13.0-17.0 [facility] Comment on above: Order Comment: Speci men Type: BLOOD SPECIMENOrdering Facility: [facility] Address: [address] [place], [place] [address] Performed By: #### 5 8410-2 ####[facility] LABIA [id number] [place] [address] [place] MCH (RBC) [Entitic mass] 23.9 pg Low 26.0-34.0 [facility] Comment on above: Order Comment: Speci men Type: BLOOD SPECIMENOrdering Facility: [facility] Address: [address] Performed By: #### 5 8410-2 ####[facility] [id number] [address] [place] MCHC (RBC) [Mass/Vol] 30.3 g/dL Low 30.5-36.0 [facility] Comment on above: Order Comment: Speci men Type: BLOOD SPECIMENOrdering Facility: [facility] Address: [address] [address] Performed By: #### 5 8410-2 ####[facility] [id number] [place] [address] [place] MCV (RBC) [Entitic vol] 78.8 fL Low 80.0-100.0 [facility] Comment on above: Order Comment: Speci men Type: BLOOD SPECIMENOrdering Facility: [facility] Address: [address] [place], [place] [address] Performed By: #### 5 8410-2 ####[facility] [id number] [place] [address] [place] Nucleated RBC (Bld) [#/Vol] 10*3/uL Normal <0.01 [facility] Comment on above: Order Comment: Speci men Type: BLOOD SPECIMENOrdering Facility: [facility] Address: [address] [place], [place] [address] Performed By: #### 5 8410-2 ####[facility] [id number] [place] [address] [place] Platelet mean volume (Bld) [Entitic vol] 10.1 fL Normal 9.0-12.7 [facility] Comment on above: Order Comment: Speci men Type: BLOOD SPECIMENOrdering Facility: [facility] Address: [address] [place], [place] [address] Performed By: #### 5 8410-2 ####[facility] LABCLIA [id number] [place] [address] [place] Platelets (Bld) [#/Vol] 320 10*3/uL Normal 150-400 [facility] Comment on above: Order Comment: Speci men Type: BLOOD SPECIMENOrdering Facility: [facility] Address: [address] [place] [address] Performed By: #### 5 8410-2 ####[facility] LABCLIA [id number] [place] [address] [place] RBC (Bld) [#/Vol] 4.81 10*6/uL Normal 4.20-6.00 [facility] Comment on above: Order Comment: Speci men Type: BLOOD SPECIMENOrdering Facility: [facility] Address: [address] [place] [address] Performed By: #### 5 8410-2 ####[facility] LABCLIA [id number] [place] [address] [place] WBC (Bld) [#/Vol] 7.97 10*3/uL Normal 3.70-11.00 [facility] Comment on above: Order Comment: Speci men Type: BLOOD SPECIMENOrdering Facility: [facility] Address: [address] [place] [address] Performed By: #### 5 8410-2 ####[facility] LABIA [id number] [place] [address] [facility] [place] Comprehensive metabolic 2000 panelon 04-11-2023 Albumin [Mass/Vol] 3.7 g/dL Low 3.9-4.9 [facility] Comment on above: Order Comment: Speci men Type: BLOOD SPECIMENOrdering Facility: [facility] Address: [address] [place] [address] Performed By: #### 1 9123-9, 19306-5 ####[facility] LABCLIA [id number] [place] [address] [place] ALP [Catalytic activity/Vol] 173 U/L High 38-113 [facility] Comment on above: Order Comment: Speci men Type: BLOOD SPECIMENOrdering Facility: [facility] Address: [address] [place] [address] Performed By: #### 1 9123-9, 53846-5 ####[facility] LABCLIA [id number] [place] [address] [place] ALT [Catalytic activity/Vol] 36 U/L Normal 10-54 [facility] Comment on above: Order Comment: Speci men Type: BLOOD SPECIMENOrdering Facility: [facility] Address: [address] [place] [address] Performed By: #### 1 9123-9, 94732-5 ####[facility] LABCLIA [id number] [place] [address] [place] Anion gap [Moles/Vol] 13 mmol/L Normal 9-18 [facility] Comment on above: Order Comment: Speci men Type: BLOOD SPECIMENOrdering Facility: [facility] Address: [address] [place], [place] [address] Performed By: #### 1 9123-9, 09668-1 ####[facility] LABCLIA [id number] [place] [address] [place] AST [Catalytic activity/Vol] 36 U/L Normal 14-40 [facility] Comment on above: Order Comment: Speci men Type: BLOOD SPECIMENOrdering Facility: [facility] Address: [address] [place], [place] [address] Performed By: #### 1 9123-9, 03937-3 ####[facility] LABCLIA [id number] [place] [address] [place] Bilirubin [Mass/Vol] 1.0 mg/dL Normal 0.2-1.3 [facility] Comment on above: Order Comment: Speci men Type: BLOOD SPECIMENOrdering Facility: [facility] Address: [address] [place] [address] Performed By: #### 1 23-9, ####[facility] LABCLIA [id number] [place] [address] [place] Calcium [Mass/Vol] 9.4 mg/dL Normal 8.5-10.2 [facility] Comment on above: Order Comment: Speci men Type: BLOOD SPECIMENOrdering Facility: [facility] Address: [address] Performed By: #### 1 23-9, ####[facility] LABCLIA [id number] [place] [address] [place] Chloride [Moles/Vol] 90 mmol/L Low 97-105 [facility] Comment on above: Order Comment: Speci men Type: BLOOD SPECIMENOrdering Facility: [facility] Address: [address] Performed By: #### 1 239, ####[facility] LABCLIA [id number] [place] [address] [place] CO2 [Moles/Vol] 27 mmol/L Normal 22-30 [facility] Comment on above: Order Comment: Speci men Type: BLOOD SPECIMENOrdering Facility: [facility] Address: [address] [place] [address] Performed By: #### 1 23-9, ####[facility] LABCLIA [id number] [place] [address] [place] Creatinine [Mass/Vol] 2.27 mg/dL High 0.73-1.22 [facility] Comment on above: Order Comment: Speci men Type: BLOOD SPECIMENOrdering Facility: [facility] Address: [address] [place] [address] Performed By: #### 1 9123-9, 07169-9 ####[facility] LABIA [id number] [place] [address] [place] Creatinine and Glomerular filtration rate.predicted panel (S/P/Bld) 31 mL/min/1.73m??? Low >=60 [facility] Comment on above: Order Comment: Joseline clemons Type: BLOOD SPECIMENOrdering Facility: [facility] Address: [address] [place] [address] Result Comment: Syl mated Glomerular Filtration Rate (eGFR) is calculated using the 2020 CKD-EPI creatinine equation. This equation utilizes serum creatinine, sex, and age as parameters. The creatinine assay has traceable calibration to isotope dilution-mass spectrometry. Refer to KDIGO guidelines for clinical interpretation. In patients with unstable renal function, e.g. those with acute kidney injury, the eGFR may not accurately reflect actual GFR. Performed By: #### 1 9123-9, 83717-0 ####[facility] LABIA [id number] [place] [address] [place] Glucose [Mass/Vol] 152 mg/dL High 74-99 [facility] Comment on above: Order Comment: Joseline clemons Type: BLOOD SPECIMENOrdering Facility: [facility] Address: [address] [place] [address] Result Comment: The [place] [employer] (ADA) provides guidance for cutoff values for fasting glucose and random glucose. The ADA defines fasting as no caloric intake for at least 8 hours. Fasting plasma glucose results between 100 to 125 mg/dL indicate increased risk for diabetes (prediabetes).Fasting plasma glucose results greater than or equal to 126 mg/dL meet the criteria for diagnosis of diabetes. In the absence of unequivocal hyperglycemia, results should be confirmed by repeat testing. In a patient with classic symptoms of hyperglycemia or hyperglycemic crisis, random plasma glucose results greater than or equal to 200 mg/dL meet the criteria for diagnosis of diabetes.Reference: Standards of Medical Care in Diabetes 2016, [place] [employer]. Diabetes Care. 2016.39(Suppl 1). Performed By: #### 1 23-9, ####[facility] LABCLIA [id number] [place] [address] [place] Potassium [Moles/Vol] 4.7 mmol/L Normal 3.7-5.1 [facility] Comment on above: Order Comment: Speci men Type: BLOOD SPECIMENOrdering Facility: [facility] Address: [address] Performed By: #### 1 9123-04, ####[facility] LABIA [id number] [place] [address] [place] Protein [Mass/Vol] 6.8 g/dL Normal 6.3-8.0 [facility] Comment on above: Order Comment: Speci men Type: BLOOD SPECIMENOrdering Facility: [facility] Address: [address] Performed By: #### 1 9123-04, ####[facility] LABIA [id number] [place] [address] [place] Sodium [Moles/Vol] 130 mmol/L Low 136-144 [facility] Comment on above: Order Comment: Speci men Type: BLOOD SPECIMENOrdering Facility: [facility] Address: [address] [place] [address] Performed By: #### 1 9123-04, ####[facility] LABIA [id number] [place] [address] [place] Urea nitrogen [Mass/Vol] 61 mg/dL High 9-24 [facility] Comment on above: Order Comment: Speci men Type: BLOOD SPECIMENOrdering Facility: [facility] Address: [address] [place] [address] Performed By: #### 1 239, ####[facility] LABIA [id number] [place] [id number] [place] Magnesium SerPl-mCncon 04-11 Magnesium [Mass/Vol] 2.7 mg/dL High 1.7-2.3 [facility] Comment on above: Order Comment: Speci men Type: BLOOD SPECIMENOrdering Facility: [facility] Address: [address] [place] [address] Performed By: #### 1 9123-9, 01708-8 ####[facility] LABCLIA [id number] [place] [address] [place] CBC panel Auto (Bld)on 04-10 Erythrocyte distribution width (RBC) [Ratio] 19.6 % High 11.5-15.0 [facility] Comment on above: Order Comment: Speci men Type: BLOOD SPECIMENOrdering Facility: [facility] Address: [address] [place] [address] Performed By: #### 5 8410-2 ####[facility] LABIA [id number] [address] [place] Hematocrit (Bld) [Volume fraction] 35.1 % Low 39.0-51.0 [facility] Comment on above: Order Comment: Speci men Type: BLOOD SPECIMENOrdering Facility: [facility] Address: [address] [place] [address] Performed By: #### 5 8410-2 ####[facility] LABCLIA [id number] [address] [place] Hemoglobin (Bld) [Mass/Vol] 11.1 g/dL Low 13.0-17.0 [facility] Comment on above: Order Comment: Speci men Type: BLOOD SPECIMENOrdering Facility: [facility] Address: [address] [place] [address] Performed By: #### 5 8410-2 ####[facility] LABIA [id number] [place] [address] [place] MCH (RBC) [Entitic mass] 24.6 pg Low 26.0-34.0 [facility] Comment on above: Order Comment: Speci men Type: BLOOD SPECIMENOrdering Facility: [facility] Address: [address] [place], [place] [address] Performed By: #### 5 8410-2 ####[facility] LABCLIA [id number] [address] [place] MCHC (RBC) [Mass/Vol] 31.6 g/dL Normal 30.5-36.0 [facility] Comment on above: Order Comment: Speci men Type: BLOOD SPECIMENOrdering Facility: [facility] Address: [address] [place] [address] Performed By: #### 5 8410-2 ####[facility] LABCLIA [id number] [address] [place] MCV (RBC) [Entitic vol] 77.7 fL Low 80.0-100.0 [facility] Comment on above: Order Comment: Speci men Type: BLOOD SPECIMENOrdering Facility: [facility] Address: [address] [place], [place] [address] Performed By: #### 5 8410-2 ####[facility] LABCLIA [id number] [address] [place] Nucleated RBC (Bld) [#/Vol] 10*3/uL Normal <0.01 [facility] Comment on above: Order Comment: Speci men Type: BLOOD SPECIMENOrdering Facility: [facility] Address: [address] [place], [place] [address] Performed By: #### 5 8410-2 ####[facility] LABCLIA [id number] [address] [place] Platelet mean volume (Bld) [Entitic vol] 10.6 fL Normal 9.0-12.7 [facility] Comment on above: Order Comment: Speci men Type: BLOOD SPECIMENOrdering Facility: [facility] Address: [address] Performed By: #### 5 8410-2 ####[facility] LABIA [id number] [place] [address] [place] Platelets (Bld) [#/Vol] 311 10*3/uL Normal 150-400 [facility] Comment on above: Order Comment: Speci men Type: BLOOD SPECIMENOrdering Facility: [facility] Address: [address] Performed By: #### 5 8410-2 ####[facility] LABIA [id number] [address] STATES [place] [facility] RBC (Bld) [#/Vol] 4.52 10*6/uL Normal 4.20-6.00 [facility] Comment on above: Order Comment: Speci men Type: BLOOD SPECIMENOrdering Facility: [facility] Address: [address] [place], [place] [address] Performed By: #### 5 8410-2 ####[facility] LABIA [id number] [address] [place] [facility] WBC (Bld) [#/Vol] 7.69 10*3/uL Normal 3.70-11.00 [facility] Comment on above: Order Comment: Speci men Type: BLOOD SPECIMENOrdering Facility: [facility] Address: [address] [place], [place] [address] Performed By: #### 5 8410-2 ####[facility] LABIA [id number] [place] [address] [place] Comprehensive metabolic 2000 panelon 04-10-2023 Albumin [Mass/Vol] 3.2 g/dL Low 3.9-4.9 [facility] Comment on above: Order Comment: Speci men Type: BLOOD SPECIMENOrdering Facility: [facility] Address: [address] [place], [place] [address] Performed By: #### 3 3762-6, 87544-6, 69331-7 ####[facility] LABCLIA [id number] [place] [address] [place] ALP [Catalytic activity/Vol] 164 U/L High 38-113 [facility] Comment on above: Order Comment: Speci men Type: BLOOD SPECIMENOrdering Facility: [facility] Address: [address] Performed By: #### 3 3762-6, 93850-8, ####[facility] LABCLIA [id number] [place] [address] [place] ALT [Catalytic activity/Vol] 34 U/L Normal 10-54 [facility] Comment on above: Order Comment: Speci men Type: BLOOD SPECIMENOrdering Facility: [facility] Address: [address] Performed By: #### 3 3762-6, 99417-3, ####[facility] LABCLIA [id number] [place] [address] [place] Anion gap [Moles/Vol] 13 mmol/L Normal 9-18 [facility] Comment on above: Order Comment: Speci men Type: BLOOD SPECIMENOrdering Facility: [facility] Address: [address] Performed By: #### 3 3762-6, 41250-6, ####[facility] LABCLIA [id number] [place] [address] [place] AST [Catalytic activity/Vol] 30 U/L Normal 14-40 [facility] Comment on above: Order Comment: Speci men Type: BLOOD SPECIMENOrdering Facility: [facility] Address: [address] Performed By: #### 3 3762-6, , ####[facility] LABCLIA [id number] [place] [address] [place] Bilirubin [Mass/Vol] 0.9 mg/dL Normal 0.2-1.3 [facility] Comment on above: Order Comment: Speci men Type: BLOOD SPECIMENOrdering Facility: [facility] Address: [address] [place], [place] [address] Performed By: #### 3 3762-6, , ####[facility] LABCLIA [id number] [place] [address] [place] Calcium [Mass/Vol] 9.2 mg/dL Normal 8.5-10.2 [facility] Comment on above: Order Comment: Speci men Type: BLOOD SPECIMENOrdering Facility: [facility] Address: [address] [place], [place] [address] Performed By: #### 3 3762-6, , ####[facility] LABCLIA [id number] [place] [address] [place] Chloride [Moles/Vol] 90 mmol/L Low 97-105 [facility] Comment on above: Order Comment: Speci men Type: BLOOD SPECIMENOrdering Facility: [facility] Address: [address] [place] [address] Performed By: #### 3 3762-6, , ####[facility] LABCLIA [id number] [place] [id number] [place] CO2 [Moles/Vol] 25 mmol/L Normal 22-30 [facility] Comment on above: Order Comment: Speci men Type: BLOOD SPECIMENOrdering Facility: [facility] Address: [address] [place] [address] Performed By: #### 3 3762-6, , ####[facility] LABCLIA [id number] [place] [address] [place] Creatinine [Mass/Vol] 2.40 mg/dL High 0.73-1.22 [facility] Comment on above: Order Comment: Joseline clemons Type: BLOOD SPECIMENOrdering Facility: [facility] Address: [address] [place] [address] Performed By: #### 3 3762-6, 85840-1, ####[facility] LABIA [id number] [address] [place] Creatinine and Glomerular filtration rate.predicted panel (S/P/Bld) 29 mL/min/1.73m??? Low >=60 [facility] Comment on above: Order Comment: Joseline clemons Type: BLOOD SPECIMENOrdering Facility: [facility] Address: [address] [place] [address] Result Comment: Syl mated Glomerular Filtration Rate (eGFR) is calculated using the 2020 CKD-EPI creatinine equation. This equation utilizes serum creatinine, sex, and age as parameters. The creatinine assay has traceable calibration to isotope dilution-mass spectrometry. Refer to KDIGO guidelines for clinical interpretation. In patients with unstable renal function, e.g. those with acute kidney injury, the eGFR may not accurately reflect actual GFR. Performed By: #### 3 3762-6, 48112-9, ####[facility] LABIA [id number] [place] [address] [place] Glucose [Mass/Vol] 145 mg/dL High 74-99 [facility] Comment on above: Order Comment: Speccate kaci Type: BLOOD SPECIMENOrdering Facility: [facility] Address: [address] [place] [address] Result Comment: The [place] [employer] (ADA) provides guidance for cutoff values for fasting glucose and random glucose. The ADA defines fasting as no caloric intake for at least 8 hours. Fasting plasma glucose results between 100 to 125 mg/dL indicate increased risk for diabetes (prediabetes).Fasting plasma glucose results greater than or equal to 126 mg/dL meet the criteria for diagnosis of diabetes. In the absence of unequivocal hyperglycemia, results should be confirmed by repeat testing. In a patient with classic symptoms of hyperglycemia or hyperglycemic crisis, random plasma glucose results greater than or equal to 200 mg/dL meet the criteria for diagnosis of diabetes.Reference: Standards of Medical Care in Diabetes 2016, [place] [employer]. Diabetes Care. 2016.39(Suppl 1). Performed By: #### 3 3762-6, 93016-7, ####[facility] LABCLIA [id number] [place] [address] [place] Potassium [Moles/Vol] 5.0 mmol/L Normal 3.7-5.1 [facility] Comment on above: Order Comment: Speci men Type: BLOOD SPECIMENOrdering Facility: [facility] Address: [address] [place] [address] Performed By: #### 3 3762-6, , ####[facility] LABCLIA [id number] [place] [address] [place] Protein [Mass/Vol] 6.3 g/dL Normal 6.3-8.0 [facility] Comment on above: Order Comment: Speci men Type: BLOOD SPECIMENOrdering Facility: [facility] Address: [address] [place] [address] Performed By: #### 3 3762-6, , ####[facility] LABIA [id number] [place] [address] [place] Sodium [Moles/Vol] 128 mmol/L Low 136-144 [facility] Comment on above: Order Comment: Speci men Type: BLOOD SPECIMENOrdering Facility: [facility] Address: [address] [place] [address] Performed By: #### 3 3762-6, 36342-9, ####[facility] LABCLIA [id number] [place] [address] [place] Urea nitrogen [Mass/Vol] 62 mg/dL High 9-24 [facility] Comment on above: Order Comment: Speci men Type: BLOOD SPECIMENOrdering Facility: [facility] Address: [address] [place] [address] Performed By: #### 3 3762-6, 24452-7, 12752-5 ####[facility] LABIA [id number] [place] [address] [place] Magnesium [facility] Magnesium [Mass/Vol] 2.8 mg/dL High 1.7-2.3 [facility] Comment on above: Order Comment: Speci men Type: BLOOD SPECIMENOrdering Facility: [facility] Address: [address] [place] [address] Performed By: #### 3 3762-6, 72510-3, ####[facility] LABIA [id number] [address] [place] NT-proBNP SerPl-mCncon 04-10 Natriuretic peptide.B prohormone N-Terminal [Mass/Vol] 5066 pg/mL High <125 [facility] Comment on above: Order Comment: Speci men Type: BLOOD SPECIMENOrdering Facility: [facility] Address: [address] [place], [place] [address] Performed By: #### 3 3762-6, 94974-3, ####[facility] LABIA [id number] [place] [address] [place] CBC panel Auto (Bld)on 04-09 Erythrocyte distribution width (RBC) [Ratio] 19.9 % High 11.5-15.0 [facility] Comment on above: Order Comment: Speci men Type: BLOOD SPECIMENOrdering Facility: [facility] Address: [address] [place] [address] Performed By: #### 5 8410-2 ####[facility] LABIA [id number] [place] [address] [place] Hematocrit (Bld) [Volume fraction] 35.6 % Low 39.0-51.0 [facility] Comment on above: Order Comment: Speci men Type: BLOOD SPECIMENOrdering Facility: [facility] Address: [address] [place] [address] Performed By: #### 5 8410-2 ####[facility] LABIA [id number] [place] [address] [place] Hemoglobin (Bld) [Mass/Vol] 11.2 g/dL Low 13.0-17.0 [facility] Comment on above: Order Comment: Speci men Type: BLOOD SPECIMENOrdering Facility: [facility] Address: [address] [place] [address] Performed By: #### 5 8410-2 ####[facility] LABIA [id number] [address] [place] MCH (RBC) [Entitic mass] 24.6 pg Low 26.0-34.0 [facility] Comment on above: Order Comment: Speci men Type: BLOOD SPECIMENOrdering Facility: [facility] Address: [address] [place] [address] Performed By: #### 5 8410-2 ####[facility] LABIA [id number] [address] [place] MCHC (RBC) [Mass/Vol] 31.5 g/dL Normal 30.5-36.0 [facility] Comment on above: Order Comment: Speci men Type: BLOOD SPECIMENOrdering Facility: [facility] Address: [address] [place] [address] Performed By: #### 5 8410-2 ####[facility] LABIA [id number] [address] [place] MCV (RBC) [Entitic vol] 78.1 fL Low 80.0-100.0 [facility] Comment on above: Order Comment: Speci men Type: BLOOD SPECIMENOrdering Facility: [facility] Address: [address] [place] [address] Performed By: #### 5 8410-2 ####[facility] LABCLIA [id number] [place] [address] [place] Nucleated RBC (Bld) [#/Vol] 10*3/uL Normal <0.01 [facility] Comment on above: Order Comment: Speci men Type: BLOOD SPECIMENOrdering Facility: [facility] Address: [address] [place], [place] [address] Performed By: #### 5 8410-2 ####[facility] LABCLIA [id number] [place] [address] [place] Platelet mean volume (Bld) [Entitic vol] 10.3 fL Normal 9.0-12.7 [facility] Comment on above: Order Comment: Speci men Type: BLOOD SPECIMENOrdering Facility: [facility] Address: [address] [place], [place] [address] Performed By: #### 5 8410-2 ####[facility] LABCLIA [id number] [place] [address] [place] Platelets (Bld) [#/Vol] 303 10*3/uL Normal 150-400 [facility] Comment on above: Order Comment: Speci men Type: BLOOD SPECIMENOrdering Facility: [facility] Address: [address] [place] [address] Performed By: #### 5 8410-2 ####[facility] LABCLIA [id number] [place] [address] [place] RBC (Bld) [#/Vol] 4.56 10*6/uL Normal 4.20-6.00 [facility] Comment on above: Order Comment: Speci men Type: BLOOD SPECIMENOrdering Facility: [facility] Address: [address] Performed By: #### 5 8410-2 ####[facility] LABCLIA [id number] [address] [place] WBC (Bld) [#/Vol] 9.41 10*3/uL Normal 3.70-11.00 [facility] Comment on above: Order Comment: Speci men Type: BLOOD SPECIMENOrdering Facility: [facility] Address: [address] [place] [place] [address] Performed By: #### 5 8410-2 ####[facility] LABIA [id number] [place] [address] [place] [facility] Comprehensive metabolic 2000 panelon 04-09-2023 Albumin [Mass/Vol] 3.4 g/dL Low 3.9-4.9 [facility] Comment on above: Order Comment: Speci men Type: BLOOD SPECIMENOrdering Facility: [facility] Address: [address] Performed By: #### 1 9123-9, 90432-4 ####[facility] LABIA [id number] [address] [place] ALP [Catalytic activity/Vol] 170 U/L High 38-113 [facility] Comment on above: Order Comment: Speci men Type: BLOOD SPECIMENOrdering Facility: [facility] Address: [address] Performed By: #### 1 9123-9, 67589-3 ####[facility] LABIA [id number] [address] [place] ALT [Catalytic activity/Vol] 30 U/L Normal 10-54 [facility] Comment on above: Order Comment: Speci men Type: BLOOD SPECIMENOrdering Facility: [facility] Address: [address] Performed By: #### 1 9123-9, 64301-2 ####[facility] LABCLIA [id number] [place] [address] [place] Anion gap [Moles/Vol] 16 mmol/L Normal 9-18 [facility] Comment on above: Order Comment: Speci men Type: BLOOD SPECIMENOrdering Facility: [facility] Address: [address] [place], [place] [address] Performed By: #### 1 23-9, 08051-1 ####[facility] LABCLIA [id number] [place] [address] [place] AST [Catalytic activity/Vol] 30 U/L Normal 14-40 [facility] Comment on above: Order Comment: Speci men Type: BLOOD SPECIMENOrdering Facility: [facility] Address: [address] [place], [place] [address] Performed By: #### 1 239, 27025-0 ####[facility] LABCLIA [id number] [place] [address] [place] Bilirubin [Mass/Vol] 1.0 mg/dL Normal 0.2-1.3 [facility] Comment on above: Order Comment: Speci men Type: BLOOD SPECIMENOrdering Facility: [facility] Address: [address] Performed By: #### 1 239, 54182-8 ####[facility] LABCLIA [id number] [place] [address] [place] Calcium [Mass/Vol] 9.6 mg/dL Normal 8.5-10.2 [facility] Comment on above: Order Comment: Speci men Type: BLOOD SPECIMENOrdering Facility: [facility] Address: [address] [place], [place] [address] Performed By: #### 1 9123-9, 99840-3 ####[facility] LABCLIA [id number] [place] [address] [place] Chloride [Moles/Vol] 89 mmol/L Low 97-105 [facility] Comment on above: Order Comment: Speci men Type: BLOOD SPECIMENOrdering Facility: [facility] Address: [address] [place] [address] Performed By: #### 1 9123-9, 14323-7 ####[facility] LABIA [id number] [address] [place] CO2 [Moles/Vol] 24 mmol/L Normal 22-30 [facility] Comment on above: Order Comment: Speci men Type: BLOOD SPECIMENOrdering Facility: [facility] Address: [address] [place] [address] Performed By: #### 1 9123-9, 00153-2 ####[facility] LABIA [id number] [address] OF [facility] Creatinine [Mass/Vol] 2.50 mg/dL High 0.73-1.22 [facility] Comment on above: Order Comment: Speci men Type: BLOOD SPECIMENOrdering Facility: [facility] Address: [address] [place] [address] Performed By: #### 1 9123-9, 05794-2 ####[facility] [id number] [address] OF [facility] Creatinine and Glomerular filtration rate.predicted panel (S/P/Bld) 28 mL/min/1.73m??? Low >=60 [facility] Comment on above: Order Comment: Speci men Type: BLOOD SPECIMENOrdering Facility: [facility] Address: [address] [place] [address] Result Comment: Syl mated Glomerular Filtration Rate (eGFR) is calculated using the 2020 CKD-EPI creatinine equation. This equation utilizes serum creatinine, sex, and age as parameters. The creatinine assay has traceable calibration to isotope dilution-mass spectrometry. Refer to KDIGO guidelines for clinical interpretation. In patients with unstable renal function, e.g. those with acute kidney injury, the eGFR may not accurately reflect actual GFR. Performed By: #### 1 9123-9, ####[facility] LABCLIA [id number] [address] [address] [place] Glucose [Mass/Vol] 154 mg/dL High 74-99 [facility] Comment on above: Order Comment: Joseline clemons Type: BLOOD SPECIMENOrdering Facility: [facility] Address: [address] [place] [address] Result Comment: The [place] [employer] (ADA) provides guidance for cutoff values for fasting glucose and random glucose. The ADA defines fasting as no caloric intake for at least 8 hours. Fasting plasma glucose results between 100 to 125 mg/dL indicate increased risk for diabetes (prediabetes).Fasting plasma glucose results greater than or equal to 126 mg/dL meet the criteria for diagnosis of diabetes. In the absence of unequivocal hyperglycemia, results should be confirmed by repeat testing. In a patient with classic symptoms of hyperglycemia or hyperglycemic crisis, random plasma glucose results greater than or equal to 200 mg/dL meet the criteria for diagnosis of diabetes.Reference: Standards of Medical Care in Diabetes 2016, [place] [employer]. Diabetes Care. 2016.39(Suppl 1). Performed By: #### 1 9123-9, ####[facility] LABCLIA [id number] [place] [id number] [place] Potassium [Moles/Vol] 4.6 mmol/L Normal 3.7-5.1 [facility] Comment on above: Order Comment: Joseline clemons Type: BLOOD SPECIMENOrdering Facility: [facility] Address: [address] [place] [address] Performed By: #### 1 9123-9, ####[facility] LABIA [id number] [address] [address] [place] Protein [Mass/Vol] 7.0 g/dL Normal 6.3-8.0 [facility] Comment on above: Order Comment: Speci men Type: BLOOD SPECIMENOrdering Facility: [facility] Address: [address] [place], [place] [address] Performed By: #### 1 9123-9, 63026-8 ####[facility] LABIA [id number] [place] [address] [place] Sodium [Moles/Vol] 129 mmol/L Low 136-144 [facility] Comment on above: Order Comment: Speci men Type: BLOOD SPECIMENOrdering Facility: [facility] Address: [address] [place] [address] Performed By: #### 1 9123-9, 50920-4 ####[facility] LABIA [id number] [place] [address] [place] Urea nitrogen [Mass/Vol] 61 mg/dL High 9-24 [facility] Comment on above: Order Comment: Speci men Type: BLOOD SPECIMENOrdering Facility: [facility] Address: [address] [place] [address] Performed By: #### 1 9123-9, 29680-4 ####[facility] LABIA [id number] [place] [address] [place] Magnesium SerPl-mCncon 04-09 Magnesium [Mass/Vol] 2.6 mg/dL High 1.7-2.3 [facility] Comment on above: Order Comment: Speci men Type: BLOOD SPECIMENOrdering Facility: [facility] Address: [address] [place], [place] [address] Performed By: #### 1 9123-9, 50449-9 ####[facility] LABIA [id number] [place] [address] [place] CBC panel Auto (Bld)on 04-08 Erythrocyte distribution width (RBC) [Ratio] 19.9 % High 11.5-15.0 [facility] Comment on above: Order Comment: Speci men Type: BLOOD SPECIMENOrdering Facility: [facility] Address: [address] [place] [address] Performed By: #### 5 8410-2 ####[facility] LABIA [id number] [address] [place] Hematocrit (Bld) [Volume fraction] 34.7 % Low 39.0-51.0 [facility] Comment on above: Order Comment: Speci men Type: BLOOD SPECIMENOrdering Facility: [facility] Address: [address] [place] [address] Performed By: #### 5 8410-2 ####[facility] LABIA [id number] [place] [address] [place] Hemoglobin (Bld) [Mass/Vol] 10.9 g/dL Low 13.0-17.0 [facility] Comment on above: Order Comment: Speci men Type: BLOOD SPECIMENOrdering Facility: [facility] Address: [address] Performed By: #### 5 8410-2 ####[facility] LABIA [id number] [place] [address] [place] MCH (RBC) [Entitic mass] 24.4 pg Low 26.0-34.0 [facility] Comment on above: Order Comment: Speci men Type: BLOOD SPECIMENOrdering Facility: [facility] Address: [address] Performed By: #### 5 8410-2 ####[facility] LABIA [id number] [address] [place] MCHC (RBC) [Mass/Vol] 31.4 g/dL Normal 30.5-36.0 [facility] Comment on above: Order Comment: Speci men Type: BLOOD SPECIMENOrdering Facility: [facility] Address: [address] Performed By: #### 5 8410-2 ####[facility] LABIA [id number] [place] [address] [place] MCV (RBC) [Entitic vol] 77.8 fL Low 80.0-100.0 [facility] Comment on above: Order Comment: Speci men Type: BLOOD SPECIMENOrdering Facility: [facility] Address: [address] [place], [place] [address] Performed By: #### 5 8410-2 ####[facility] LABIA [id number] [place] [address] [place] Nucleated RBC (Bld) [#/Vol] 10*3/uL Normal <0.01 [facility] Comment on above: Order Comment: Speci men Type: BLOOD SPECIMENOrdering Facility: [facility] Address: [address] [place], [place] [address] Performed By: #### 5 8410-2 ####[facility] [id number] [place] [address] [place] Platelet mean volume (Bld) [Entitic vol] 10.0 fL Normal 9.0-12.7 [facility] Comment on above: Order Comment: Speci men Type: BLOOD SPECIMENOrdering Facility: [facility] Address: [address] [place], [place] [address] Performed By: #### 5 8410-2 ####[facility] [id number] [place] [address] [place] Platelets (Bld) [#/Vol] 294 10*3/uL Normal 150-400 [facility] Comment on above: Order Comment: Speci men Type: BLOOD SPECIMENOrdering Facility: [facility] Address: [address] [place], [place] [address] Performed By: #### 5 8410-2 ####[facility] LABIA [id number] [place] [address] [place] RBC (Bld) [#/Vol] 4.46 10*6/uL Normal 4.20-6.00 [facility] Comment on above: Order Comment: Speci men Type: BLOOD SPECIMENOrdering Facility: [facility] Address: [address] [place] [address] Performed By: #### 5 8410-2 ####[facility] LABCLIA [id number] [place] [address] [place] WBC (Bld) [#/Vol] 8.80 10*3/uL Normal 3.70-11.00 [facility] Comment on above: Order Comment: Speci men Type: BLOOD SPECIMENOrdering Facility: [facility] Address: [address] [place], [place] [address] Performed By: #### 5 8410-2 ####[facility] LABCLIA [id number] [place] [address] [place] CONSULT PROGon 04-08-2023 CONSULT PROG Normal [facility] Comprehensive metabolic 2000 panelon 04-08-2023 Albumin [Mass/Vol] 3.6 g/dL Low 3.9-4.9 [facility] Comment on above: Order Comment: Speci men Type: BLOOD SPECIMENOrdering Facility: [facility] Address: [address] [place] [address] Performed By: #### 2 4323-8, 32599-2 ####[facility] LABCLIA [id number] [place] [address] [place] ALP [Catalytic activity/Vol] 182 U/L High 38-113 [facility] Comment on above: Order Comment: Speci men Type: BLOOD SPECIMENOrdering Facility: [facility] Address: [address] [place], [place] [address] Performed By: #### 2 4323-8, 00898-8 ####[facility] LABCLIA [id number] [place] [address] [place] ALT [Catalytic activity/Vol] 33 U/L Normal 10-54 [facility] Comment on above: Order Comment: Speci men Type: BLOOD SPECIMENOrdering Facility: [facility] Address: [address] [place], [place] [address] Performed By: #### 2 4328, ####[facility] LABCLIA [id number] [place] [address] [place] Anion gap [Moles/Vol] 15 mmol/L Normal 9-18 [facility] Comment on above: Order Comment: Speci men Type: BLOOD SPECIMENOrdering Facility: [facility] Address: [address] [place] [address] Performed By: #### 2 8, ####[facility] LABCLIA [id number] [place] [address] [place] AST [Catalytic activity/Vol] 31 U/L Normal 14-40 [facility] Comment on above: Order Comment: Speci men Type: BLOOD SPECIMENOrdering Facility: [facility] Address: [address] [place] [address] Performed By: #### 2 4323-03, ####[facility] LABCLIA [id number] [place] [address] [place] Bilirubin [Mass/Vol] 1.0 mg/dL Normal 0.2-1.3 [facility] Comment on above: Order Comment: Speci men Type: BLOOD SPECIMENOrdering Facility: [facility] Address: [address] [place], [place] [address] Performed By: #### 2 4322-8, ####[facility] LABCLIA [id number] [place] [address] [place] Calcium [Mass/Vol] 9.6 mg/dL Normal 8.5-10.2 [facility] Comment on above: Order Comment: Speci men Type: BLOOD SPECIMENOrdering Facility: [facility] Address: [address] Performed By: #### 2 4323-8, ####[facility] LABCLIA [id number] [place] [address] [place] Chloride [Moles/Vol] 92 mmol/L Low 97-105 [facility] Comment on above: Order Comment: Speci men Type: BLOOD SPECIMENOrdering Facility: [facility] Address: [address] [place] [address] Performed By: #### 2 4323-8, ####[facility] LABCLIA [id number] [address] [place] CO2 [Moles/Vol] 22 mmol/L Normal 22-30 [facility] Comment on above: Order Comment: Speci men Type: BLOOD SPECIMENOrdering Facility: [facility] Address: [address] [place] [address] Performed By: #### 2 43238, ####[facility] LABCLIA [id number] [place] [address] [place] Creatinine [Mass/Vol] 2.44 mg/dL High 0.73-1.22 [facility] Comment on above: Order Comment: Speci men Type: BLOOD SPECIMENOrdering Facility: [facility] Address: [address] [place], [place] [address] Performed By: #### 2 4323-8, ####[facility] LABCLIA [id number] [place] [address] [place] Creatinine and Glomerular filtration rate.predicted panel (S/P/Bld) 29 mL/min/1.73m??? Low >=60 [facility] Comment on above: Order Comment: Speci men Type: BLOOD SPECIMENOrdering Facility: [facility] Address: [address] [place], [place] [address] Result Comment: Syl mated Glomerular Filtration Rate (eGFR) is calculated using the 2020 CKD-EPI creatinine equation. This equation utilizes serum creatinine, sex, and age as parameters. The creatinine assay has traceable calibration to isotope dilution-mass spectrometry. Refer to KDIGO guidelines for clinical interpretation. In patients with unstable renal function, e.g. those with acute kidney injury, the eGFR may not accurately reflect actual GFR. Performed By: #### 2 4323-8, ####[facility] LABIA [id number] [place] [address] [place] Glucose [Mass/Vol] 192 mg/dL High 74-99 [facility] Comment on above: Order Comment: Joseline clemons Type: BLOOD SPECIMENOrdering Facility: [facility] Address: [address] [place] [address] Result Comment: The [place] [employer] (ADA) provides guidance for cutoff values for fasting glucose and random glucose. The ADA defines fasting as no caloric intake for at least 8 hours. Fasting plasma glucose results between 100 to 125 mg/dL indicate increased risk for diabetes (prediabetes).Fasting plasma glucose results greater than or equal to 126 mg/dL meet the criteria for diagnosis of diabetes. In the absence of unequivocal hyperglycemia, results should be confirmed by repeat testing. In a patient with classic symptoms of hyperglycemia or hyperglycemic crisis, random plasma glucose results greater than or equal to 200 mg/dL meet the criteria for diagnosis of diabetes.Reference: Standards of Medical Care in Diabetes 2016, [place] [employer]. Diabetes Care. 2016.39(Suppl 1). Performed By: #### 2 4323-8, ####[facility] LABIA [id number] [place] [address] [place] Potassium [Moles/Vol] 4.8 mmol/L Normal 3.7-5.1 [facility] Comment on above: Order Comment: Joseline clemons Type: BLOOD SPECIMENOrdering Facility: [facility] Address: [address] [place] [id number] Performed By: #### 2 4323-8, ####[facility] LABCLIA [id number] [place] [address] [place] Protein [Mass/Vol] 6.8 g/dL Normal 6.3-8.0 [facility] Comment on above: Order Comment: Speci men Type: BLOOD SPECIMENOrdering Facility: [facility] Address: [address] [place] [address] Performed By: #### 2 4323-8, ####[facility] LABCLIA [id number] [place] [address] [place] Sodium [Moles/Vol] 129 mmol/L Low 136-144 [facility] Comment on above: Order Comment: Speci men Type: BLOOD SPECIMENOrdering Facility: [facility] Address: [address] [place] [address] Performed By: #### 2 4323-8, 96641-6 ####[facility] LABCLIA [id number] [place] [address] [place] Urea nitrogen [Mass/Vol] 58 mg/dL High 9-24 [facility] Comment on above: Order Comment: Speci men Type: BLOOD SPECIMENOrdering Facility: [facility] Address: [address] [place] [address] Performed By: #### 2 4323-8, 91387-6 ####[facility] LABCLIA [id number] [place] [address] [place] Magnesium SerPl-mCncon 04-08 Magnesium [Mass/Vol] 2.8 mg/dL High 1.7-2.3 [facility] Comment on above: Order Comment: Speci men Type: BLOOD SPECIMENOrdering Facility: [facility] Address: [address] [place] [address] Performed By: #### 2 4323-8, 68151-9 ####[facility] LABCLIA [id number] [address] PT panel Coag (PPP)on 2022 INR Coag (PPP) [Relative time] 1.2 {INR} Normal 0.9-1.3 [facility] Comment on above: Order Comment: Joseline clemons Type: BLOOD SPECIMENOrdering Facility: [facility] Address: [address] [place] [id number] Result Comment: Baylee min K Antagonist (VKA) Therapeutic Range: INR 2 to 3 (Target INR of 2.5)Note: For patients treated with VKA drugs, such as warfarin, the [place] [employer] 2012 Guideline recommends a therapeutic INR range of 2 to 3 (target INR of 2.5). This recommendation includes high-risk patients with antiphospholipid syndrome with previous arterial or venous thromboembolism, current-generation mechanical or bioprosthetic aortic heart valve replacement.Note: Patients with mechanical aortic valve replacement and additional risk factors for thromboembolic events (atrial fibrillation, previous thromboembolism, LV dysfunction, hypercoagulable conditions) or an older generation mechanical AVR (i.e., ball in-Cage) or any mechanical MVR should have a INR therapeutic range of 2.5 to 3.5 (target INR of 3).Michellett GH, et al. Chest 2012, 141:7S-47SNishimura RA, et al. [facility] 2017, 70: 252-289 Performed By: #### 3 4528-0 ####[facility] LABCLIA [id number] [place] [address] [place] PT Coag (PPP) [Time] 11.9 s Normal 9.7-13.0 [facility] Comment on above: Order Comment: Joseline clemons Type: BLOOD SPECIMENOrdering Facility: [facility] Address: [place] [address] Performed By: #### 3 4528-0 ####[facility] LABIA [id number] [place] [id number] [facility] [place] CASE MANAGEMon 04-07-2023 CASE MANAGEM Normal [facility] CBC panel Auto (Bld)on 04-07 Erythrocyte distribution width (RBC) [Ratio] 20.6 % High 11.5-15.0 [facility] Comment on above: Order Comment: Speci men Type: BLOOD SPECIMENOrdering Facility: [facility] Address: [address] [place] [address] Performed By: #### 5 8410-2 ####[facility] LABIA [id number] [place] [address] [place] Hematocrit (Bld) [Volume fraction] 35.8 % Low 39.0-51.0 [facility] Comment on above: Order Comment: Speci men Type: BLOOD SPECIMENOrdering Facility: [facility] Address: [address] [place] [address] Performed By: #### 5 8410-2 ####[facility] LABIA [id number] [place] [address] [place] Hemoglobin (Bld) [Mass/Vol] 10.9 g/dL Low 13.0-17.0 [facility] Comment on above: Order Comment: Speci men Type: BLOOD SPECIMENOrdering Facility: [facility] Address: [address] [place] [address] Performed By: #### 5 8410-2 ####[facility] LABIA [id number] [place] [address] [place] MCH (RBC) [Entitic mass] 24.4 pg Low 26.0-34.0 [facility] Comment on above: Order Comment: Speci men Type: BLOOD SPECIMENOrdering Facility: [facility] Address: [address] [place], [place] [address] Performed By: #### 5 8410-2 ####[facility] LABIA [id number] [place] [address] [place] MCHC (RBC) [Mass/Vol] 30.4 g/dL Low 30.5-36.0 [facility] Comment on above: Order Comment: Speci men Type: BLOOD SPECIMENOrdering Facility: [facility] Address: [address] [place] [address] Performed By: #### 5 8410-2 ####[facility] LABCLIA [id number] [address] MCV (RBC) [Entitic vol] 80.3 fL Normal 80.0-100.0 [facility] Comment on above: Order Comment: Speci men Type: BLOOD SPECIMENOrdering Facility: [facility] Address: [address] [place] [address] Performed By: #### 5 8410-2 ####[facility] LABIA [id number] [place] [address] [place] Nucleated RBC (Bld) [#/Vol] 10*3/uL Normal <0.01 [facility] Comment on above: Order Comment: Speci men Type: BLOOD SPECIMENOrdering Facility: [facility] Address: [address] [place] [address] Performed By: #### 5 8410-2 ####[facility] LABIA [id number] [place] [address] [place] Platelet mean volume (Bld) [Entitic vol] 10.4 fL Normal 9.0-12.7 [facility] Comment on above: Order Comment: Speci men Type: BLOOD SPECIMENOrdering Facility: [facility] Address: [address] [place] Performed By: #### 5 8410-2 ####[facility] LABIA [id number] [place] [address] [place] Platelets (Bld) [#/Vol] 298 10*3/uL Normal 150-400 [facility] Comment on above: Order Comment: Speci men Type: BLOOD SPECIMENOrdering Facility: [facility] Address: [address] [place] Performed By: #### 5 8410-2 ####[facility] LABCLIA [id number] [place] [address] [place] RBC (Bld) [#/Vol] 4.46 10*6/uL Normal 4.20-6.00 [facility] Comment on above: Order Comment: Speci men Type: BLOOD SPECIMENOrdering Facility: [facility] Address: [address] [place] [address] Performed By: #### 5 8410-2 ####[facility] LABCLIA [id number] [place] [address] [place] WBC (Bld) [#/Vol] 8.02 10*3/uL Normal 3.70-11.00 [facility] Comment on above: Order Comment: Speci men Type: BLOOD SPECIMENOrdering Facility: [facility] Address: [address] [place] [address] Performed By: #### 5 8410-2 ####[facility] LABIA [id number] [place] [address] [place] CONSULTon 04-07-2023 CONSULT Normal [facility] Comprehensive metabolic 2000 panelon 04-07-2023 Albumin [Mass/Vol] 3.6 g/dL Low 3.9-4.9 [facility] Comment on above: Order Comment: Speci men Type: BLOOD SPECIMENOrdering Facility: [facility] Address: [address] [place], [place] [address] Performed By: #### 2 4323-8, 51518-9 ####[facility] LABIA [id number] [place] [address] [place] ALP [Catalytic activity/Vol] 171 U/L High 38-113 [facility] Comment on above: Order Comment: Speci men Type: BLOOD SPECIMENOrdering Facility: [facility] Address: [address] [place] [address] Performed By: #### 2 4323-8, ####[facility] LABCLIA [id number] [place] [address] [place] ALT [Catalytic activity/Vol] 24 U/L Normal 10-54 [facility] Comment on above: Order Comment: Speci men Type: BLOOD SPECIMENOrdering Facility: [facility] Address: [address] [place] [address] Performed By: #### 2 4323-8, ####[facility] LABCLIA [id number] [place] [address] [place] Anion gap [Moles/Vol] 14 mmol/L Normal 9-18 [facility] Comment on above: Order Comment: Speci men Type: BLOOD SPECIMENOrdering Facility: [facility] Address: [address] [place] [address] Performed By: #### 2 4323-8, ####[facility] LABCLIA [id number] [place] [address] [place] AST [Catalytic activity/Vol] 28 U/L Normal 14-40 [facility] Comment on above: Order Comment: Speci men Type: BLOOD SPECIMENOrdering Facility: [facility] Address: [address] [place] [address] Performed By: #### 2 4323-8, ####[facility] LABCLIA [id number] [place] [address] [place] Bilirubin [Mass/Vol] 1.1 mg/dL Normal 0.2-1.3 [facility] Comment on above: Order Comment: Speci men Type: BLOOD SPECIMENOrdering Facility: [facility] Address: [address] [place], [place] [address] Performed By: #### 2 4323-8, ####[facility] LABCLIA [id number] [place] [address] [place] Calcium [Mass/Vol] 9.5 mg/dL Normal 8.5-10.2 [facility] Comment on above: Order Comment: Speci men Type: BLOOD SPECIMENOrdering Facility: [facility] Address: [address] Performed By: #### 2 432-8, ####[facility] LABCLIA [id number] [facility] [place] [address] [place] Chloride [Moles/Vol] 92 mmol/L Low 97-105 [facility] Comment on above: Order Comment: Speci men Type: BLOOD SPECIMENOrdering Facility: [facility] Address: [address] [place], [place] [address] Performed By: #### 2 8, ####[facility] LABCLIA [id number] [place] [address] [place] CO2 [Moles/Vol] 22 mmol/L Normal 22-30 [facility] Comment on above: Order Comment: Speci men Type: BLOOD SPECIMENOrdering Facility: [facility] Address: [address] [place], [place] [address] Performed By: #### 2 8, ####[facility] LABCLIA [id number] [place] [address] [place] Creatinine [Mass/Vol] 2.30 mg/dL High 0.73-1.22 [facility] Comment on above: Order Comment: Speci men Type: BLOOD SPECIMENOrdering Facility: [facility] Address: [address] Performed By: #### 2 4323-8, ####[facility] LABCLIA [id number] [place] [address] [place] Creatinine and Glomerular filtration rate.predicted panel (S/P/Bld) 31 mL/min/1.73m??? Low >=60 [facility] Comment on above: Order Comment: Speci men Type: BLOOD SPECIMENOrdering Facility: [facility] Address: [address] [id number] Result Comment: Syl mated Glomerular Filtration Rate (eGFR) is calculated using the 2020 CKD-EPI creatinine equation. This equation utilizes serum creatinine, sex, and age as parameters. The creatinine assay has traceable calibration to isotope dilution-mass spectrometry. Refer to KDIGO guidelines for clinical interpretation. In patients with unstable renal function, e.g. those with acute kidney injury, the eGFR may not accurately reflect actual GFR. Performed By: #### 2 4323-8, ####[facility] LABIA [id number] [place] [address] [place] Glucose [Mass/Vol] 203 mg/dL High 74-99 [facility] Comment on above: Order Comment: Joseline clemons Type: BLOOD SPECIMENOrdering Facility: [facility] Address: [address] Result Comment: The [place] Diabetes [employer] (ADA) provides guidance for cutoff values for fasting glucose and random glucose. The ADA defines fasting as no caloric intake for at least 8 hours. Fasting plasma glucose results between 100 to 125 mg/dL indicate increased risk for diabetes (prediabetes).Fasting plasma glucose results greater than or equal to 126 mg/dL meet the criteria for diagnosis of diabetes. In the absence of unequivocal hyperglycemia, results should be confirmed by repeat testing. In a patient with classic symptoms of hyperglycemia or hyperglycemic crisis, random plasma glucose results greater than or equal to 200 mg/dL meet the criteria for diagnosis of diabetes.Reference: Standards of Medical Care in Diabetes 2016, [place] [employer]. Diabetes Care. 2016.39(Suppl 1). Performed By: #### 2 4323-8, ####[facility] LABIA [id number] [place] [id number] [place] Potassium [Moles/Vol] 5.1 mmol/L Normal 3.7-5.1 [facility] Comment on above: Order Comment: Joseline clemons Type: BLOOD SPECIMENOrdering Facility: [facility] Address: [address] [id number] Performed By: #### 2 4323-8, ####[facility] LABCLIA [id number] [place] [address] [place] Protein [Mass/Vol] 7.2 g/dL Normal 6.3-8.0 [facility] Comment on above: Order Comment: Speci men Type: BLOOD SPECIMENOrdering Facility: [facility] Address: [address] Performed By: #### 2 4323-8, ####[facility] LABIA [id number] [place] [address] [place] Sodium [Moles/Vol] 128 mmol/L Low 136-144 [facility] Comment on above: Order Comment: Speci men Type: BLOOD SPECIMENOrdering Facility: [facility] Address: [address] [place] [address] Performed By: #### 2 4323-8, ####[facility] LABIA [id number] [place] [address] [place] Urea nitrogen [Mass/Vol] 56 mg/dL High 9-24 [facility] Comment on above: Order Comment: Speci men Type: BLOOD SPECIMENOrdering Facility: [facility] Address: [address] [place], [place] [address] Performed By: #### 2 4323-8, ####[facility] LABIA [id number] [place] [address] [place] ICD CLINIC CHECKon 3 AV Delay Adaptive Paced Minimum (ms) 140 ms [facility] AV Delay Adaptive Sensed Minimum (ms) 100 ms [facility] Federico LV Pacing Amplitude (volts) 3.5 V [facility] Federico LV Pacing Pulse Width (ms) 0.5 ms [facility] federico LV Sensing Amplitude (mvolts) 1.0 mV [facility]ico RA Pacing Amplitude (volts) 5.0 V [facility] Federico RA Pacing Polarity BI [facility] Federico RA Pacing Pulse Width (ms) 0.4 ms [facility] Federico RA Sensing Amplitude (mvolts) 0.25 mV [facility] Federico RA Sensing Polarity BI [facility] Federico RV Pacing Amplitude (volts) 2.0 V [facility] Federico RV Pacing Polarity BI [facility] Federico RV Pacing Pulse Width (ms) 0.4 ms [facility] Federico RV Sensing Amplitude (mvolts) 0.3 mV [facility] Federico RV Sensing Polarity BI [facility] Detection Configuration (Vent) 2 - Zone [facility] FastVT_Detection Interval 300 ms [facility] FastVT_Therapy Configuration 1 ATP(s) + 8 Shock(s) [facility] ICD FastVT DetectionStatus ENABLED [facility] ICD-AMS EPISODES 170 {beats}/min [facility] ICD-ATP Episodes (Vent) 0 [facility] ICD-ATRIALFIBRILLATIO N 0 [facility] ICD-Device Mfg BSX [facility] ICD-LEADIMPEDANCEATRI AL 751 ohm [facility] ICD-Percent Pacing (Atrial) 2 % [facility] ICD-Percent Pacing (Vent) 4 % [facility] ICD-Rhythm Sinus Rhythm with frequent PVCs/bigeminy [facility] ICD-Shocks Aborted (Vent) 0 [facility] [id number] 0 [facility] ICD-SHOCKSABORTED 0 [facility] ICD-SHOCKSDELIVEREDVE NTRICULAR 0 [facility] ICD-Ventricular Fibrillation 0 [facility] Implant Date 10/18/2017 [facility] Lead Impedance (LV) 1039 ohm [facility] Lead Impedance (RV) 513 ohm [facility] Lead Impedance High Voltage 78 ohm [facility] Lead1 Mfg X [facility] Lead2 Mfg BSX [facility] Lead3 Mfg BSX [facility] Location LV [facility] Location RA [facility] Location RV [facility] Lower Rate (bpm) 60 {beats}/min [facility] LV PACING % 91 % [facility] Max Sensor Rate (bpm) 130 {beats}/min [facility] MDT_PROG_TACHY_ZONE_D ETECTIONS_STATUS ENABLED [facility] Model G247 VIGILANT X4 WINDER OPERATOR-D Cl [facility] Model 4671 Acuity X4 Straight C [facility] Model 7841 Ingevity + MRI [facility] Model 0292 Endotak Relianc e 4-Site SG [facility] Pacemaker Dependent? NO [facility] Pacing Mode DDD [facility] Serial Number [id number] [facility] Serial Number [id number] [facility] Serial Number [id number] [facility] Serial Number [id number] [facility] Test Charge Time 9.9 s [facility] Therapy Status (Vent) Enabled [facility] Thresh LV Capture Amplitude (volts) 1.8 V [facility] Thresh LV Capture Duration (ms) 0.5 ms [facility] Thresh RA Capture Amplitude (volts) 0.6 V [facility] Thresh RA Capture Duration (ms) 0.4 ms [facility] Thresh RV Capture Amplitude (VOLTS) 0.6 V [facility] Thresh RV Capture Duration (MS) 0.4 ms [facility] Tracking Rate (bpm) 130 {beats}/min [facility] VF Zone Detection Interval 300 ms [facility] VF Zone Therapy Configuration 1 ATP(s) + 8 Shock(s) [facility] Magnesium SerPl-mCncon 04-07 Magnesium [Mass/Vol] 2.6 mg/dL High 1.7-2.3 [facility] Comment on above: Order Comment: Speci men Type: BLOOD SPECIMENOrdering Facility: [facility] Address: [address] [place] [address] Performed By: #### 2 4323-8, 00654-4 ####[facility] LABCLIA [id number] [address] [place] No Panel Informationon 04-07 BLANK _ [facility] ICD-Fast Ventricular Tachycardia 0 [facility] Implant Date 03/31/2023 [facility] POTASSIUM BLDon 04-07-2023 Potassium [Moles/Vol] 5.0 mmol/L Normal 3.7-5.1 [facility] Comment on above: Order Comment: Speci men Type: BLOOD SPECIMENOrdering Facility: [facility] Address: [address] [place] [address] Performed By: #### K 1 ####[facility] LABIA [id number] [place] [address] [place] CBC panel Auto (Bld)on 04-06 Erythrocyte distribution width (RBC) [Ratio] 20.1 % High 11.5-15.0 [facility] Comment on above: Order Comment: Speci men Type: BLOOD SPECIMENOrdering Facility: [facility] Address: [address] [place] [address] Performed By: #### 5 8410-2 ####[facility] LABIA [id number] [address] [place] Hematocrit (Bld) [Volume fraction] 33.3 % Low 39.0-51.0 [facility] Comment on above: Order Comment: Speci men Type: BLOOD SPECIMENOrdering Facility: [facility] Address: [address] [place] [address] Performed By: #### 5 8410-2 ####[facility] LABIA [id number] [address] [place] Hemoglobin (Bld) [Mass/Vol] 10.3 g/dL Low 13.0-17.0 [facility] Comment on above: Order Comment: Speci men Type: BLOOD SPECIMENOrdering Facility: [facility] Address: [address] [place] [address] Performed By: #### 5 8410-2 ####[facility] LABIA [id number] [place] [address] [place] MCH (RBC) [Entitic mass] 24.6 pg Low 26.0-34.0 [facility] Comment on above: Order Comment: Speci men Type: BLOOD SPECIMENOrdering Facility: [facility] Address: [address] [place] [address] Performed By: #### 5 8410-2 ####[facility] LABCLIA [id number] [address] [place] MCHC (RBC) [Mass/Vol] 30.9 g/dL Normal 30.5-36.0 [facility] Comment on above: Order Comment: Speci men Type: BLOOD SPECIMENOrdering Facility: [facility] Address: [address] [place], [place] [address] Performed By: #### 5 8410-2 ####[facility] LABIA [id number] [address] [place] MCV (RBC) [Entitic vol] 79.5 fL Low 80.0-100.0 [facility] Comment on above: Order Comment: Speci men Type: BLOOD SPECIMENOrdering Facility: [facility] Address: [address] [place], [place] [address] Performed By: #### 5 8410-2 ####[facility] LABIA [id number] [place] [address] [place] Nucleated RBC (Bld) [#/Vol] 10*3/uL Normal <0.01 [facility] Comment on above: Order Comment: Speci men Type: BLOOD SPECIMENOrdering Facility: [facility] Address: [address] [place], [place] [address] Performed By: #### 5 8410-2 ####[facility] LABIA [id number] [place] [address] [place] Platelet mean volume (Bld) [Entitic vol] 10.7 fL Normal 9.0-12.7 [facility] Comment on above: Order Comment: Speci men Type: BLOOD SPECIMENOrdering Facility: [facility] Address: [address] [place], [place] [address] Performed By: #### 5 8410-2 ####[facility] LABIA [id number] [place] [address] [place] Platelets (Bld) [#/Vol] 305 10*3/uL Normal 150-400 [facility] Comment on above: Order Comment: Speci men Type: BLOOD SPECIMENOrdering Facility: [facility] Address: [address] Performed By: #### 5 8410-2 ####[facility] LABCLIA [id number] [place] [address] [place] RBC (Bld) [#/Vol] 4.19 10*6/uL Low 4.20-6.00 [facility] Comment on above: Order Comment: Speci men Type: BLOOD SPECIMENOrdering Facility: [facility] Address: [address] Performed By: #### 5 8410-2 ####[facility] LABIA [id number] [place] [address] [place] WBC (Bld) [#/Vol] 7.31 10*3/uL Normal 3.70-11.00 [facility] Comment on above: Order Comment: Speci men Type: BLOOD SPECIMENOrdering Facility: [facility] Address: [address] Performed By: #### 5 8410-2 ####[facility] LABIA [id number] [place] [address] [place] Comprehensive metabolic 2000 panelon 04-06-2023 Albumin [Mass/Vol] 3.0 g/dL Low 3.9-4.9 [facility] Comment on above: Order Comment: Speci men Type: BLOOD SPECIMENOrdering Facility: [facility] Address: [address] [place] [address] Performed By: #### 1 9123-9, 80623-4 ####[facility] LABIA [id number] [place] [address] [place] ALP [Catalytic activity/Vol] 142 U/L High 38-113 [facility] Comment on above: Order Comment: Speci men Type: BLOOD SPECIMENOrdering Facility: [facility] Address: [address] [place] [address] Performed By: #### 1 9123-9, ####[facility] LABCLIA [id number] [place] [address] [place] ALT [Catalytic activity/Vol] 18 U/L Normal 10-54 [facility] Comment on above: Order Comment: Speci men Type: BLOOD SPECIMENOrdering Facility: [facility] Address: [address] [place] [address] Performed By: #### 1 239, ####[facility] LABCLIA [id number] [place] [address] [place] Anion gap [Moles/Vol] 12 mmol/L Normal 9-18 [facility] Comment on above: Order Comment: Speci men Type: BLOOD SPECIMENOrdering Facility: [facility] Address: [address] [place] [address] Performed By: #### 1 9, ####[facility] LABCLIA [id number] [address] [place] AST [Catalytic activity/Vol] 29 U/L Normal 14-40 [facility] Comment on above: Order Comment: Speci men Type: BLOOD SPECIMENOrdering Facility: [facility] Address: [address] [place] [address] Result Comment: Resu lts may be falsely increased due to interference from hemolysis. Suggest reorder as clinically indicated. Performed By: #### 1 9123-9, ####[facility] LABCLIA [id number] [place] [address] [place] Bilirubin [Mass/Vol] 1.0 mg/dL Normal 0.2-1.3 [facility] Comment on above: Order Comment: Speci men Type: BLOOD SPECIMENOrdering Facility: [facility] Address: [address] [place] [address] Performed By: #### 1 9123-9, 32819-7 ####[facility] LABCLIA [id number] [place] [address] [place] Calcium [Mass/Vol] 8.7 mg/dL Normal 8.5-10.2 [facility] Comment on above: Order Comment: Speci men Type: BLOOD SPECIMENOrdering Facility: [facility] Address: [address] [place] [address] Performed By: #### 1 23-9, 33317-0 ####[facility] LABCLIA [id number] [place] [address] [place] Chloride [Moles/Vol] 96 mmol/L Low 97-105 [facility] Comment on above: Order Comment: Speci men Type: BLOOD SPECIMENOrdering Facility: [facility] Address: [address] [place] [address] Performed By: #### 1 239, 49154-8 ####[facility] LABCLIA [id number] [place] [address] [place] CO2 [Moles/Vol] 21 mmol/L Low 22-30 [facility] Comment on above: Order Comment: Speci men Type: BLOOD SPECIMENOrdering Facility: [facility] Address: [address] [place], [place] [address] Performed By: #### 1 239, 23349-9 ####[facility] LABIA [id number] [place] [address] [place] Creatinine [Mass/Vol] 2.08 mg/dL High 0.73-1.22 [facility] Comment on above: Order Comment: Speci men Type: BLOOD SPECIMENOrdering Facility: [facility] Address: [address] [place], [place] [address] Performed By: #### 1 9123-9, 82283-6 ####[facility] LABCLIA [id number] [place] [address] [place] Creatinine and Glomerular filtration rate.predicted panel (S/P/Bld) 35 mL/min/1.73m??? Low >=60 [facility] Comment on above: Order Comment: Joseline clemons Type: BLOOD SPECIMENOrdering Facility: [facility] Address: [address] [place], [place] [address] Result Comment: Syl mated Glomerular Filtration Rate (eGFR) is calculated using the 2020 CKD-EPI creatinine equation. This equation utilizes serum creatinine, sex, and age as parameters. The creatinine assay has traceable calibration to isotope dilution-mass spectrometry. Refer to KDIGO guidelines for clinical interpretation. In patients with unstable renal function, e.g. those with acute kidney injury, the eGFR may not accurately reflect actual GFR. Performed By: #### 1 9123-9, 17365-0 ####[facility] LABCLIA [id number] [place] [address] [place] Glucose [Mass/Vol] 174 mg/dL High 74-99 [facility] Comment on above: Order Comment: Joseline clemons Type: BLOOD SPECIMENOrdering Facility: [facility] Address: [address] [place], [place] [address] Result Comment: The [place] [employer] (ADA) provides guidance for cutoff values for fasting glucose and random glucose. The ADA defines fasting as no caloric intake for at least 8 hours. Fasting plasma glucose results between 100 to 125 mg/dL indicate increased risk for diabetes (prediabetes).Fasting plasma glucose results greater than or equal to 126 mg/dL meet the criteria for diagnosis of diabetes. In the absence of unequivocal hyperglycemia, results should be confirmed by repeat testing. In a patient with classic symptoms of hyperglycemia or hyperglycemic crisis, random plasma glucose results greater than or equal to 200 mg/dL meet the criteria for diagnosis of diabetes.Reference: Standards of Medical Care in Diabetes 2016, [place] [employer]. Diabetes Care. 2016.39(Suppl 1). Performed By: #### 1 9123-9, 58205-8 ####[facility] LABCLIA [id number] [place] [address] [place] Potassium [Moles/Vol] 4.9 mmol/L Normal 3.7-5.1 [facility] Comment on above: Order Comment: Speci men Type: BLOOD SPECIMENOrdering Facility: [facility] Address: [address] Performed By: #### 1 23-9, ####[facility] LABCLIA [id number] [place] [address] [place] Protein [Mass/Vol] 5.9 g/dL Low 6.3-8.0 [facility] Comment on above: Order Comment: Speci men Type: BLOOD SPECIMENOrdering Facility: [facility] Address: [address] [place] [address] Performed By: #### 1 9, ####[facility] LABCLIA [id number] [place] [address] [place] Sodium [Moles/Vol] 129 mmol/L Low 136-144 [facility] Comment on above: Order Comment: Speci men Type: BLOOD SPECIMENOrdering Facility: [facility] Address: [address] [place] [address] Performed By: #### 1 9, ####[facility] LABCLIA [id number] [place] [address] [place] Urea nitrogen [Mass/Vol] 55 mg/dL High 9-24 [facility] Comment on above: Order Comment: Speci men Type: BLOOD SPECIMENOrdering Facility: [facility] Address: [address] Performed By: #### 1 23-9, ####[facility] LABCLIA [id number] [place] [address] [place] Magnesium SerPl-mCncon 04-06 Magnesium [Mass/Vol] 2.5 mg/dL High 1.7-2.3 [facility] Comment on above: Order Comment: Speci men Type: BLOOD SPECIMENOrdering Facility: [facility] Address: [address] [address] Performed By: #### 1 9123-9, 56247-5 ####[facility] LABCLIA [id number] [place] [address] [place] POTASSIUM BLDon 04-06-2023 Potassium [Moles/Vol] 5.1 mmol/L Normal 3.7-5.1 [facility] Comment on above: Order Comment: Speci men Type: BLOOD SPECIMENOrdering Facility: [facility] Address: [address] [place] [address] Performed By: #### K 1 ####[facility] LABIA [id number] [place] [address] [place] CASE MANAGEMon 04-05-2023 CASE MANAGEM Normal [facility] CBC panel Auto (Bld)on 04-05 Erythrocyte distribution width (RBC) [Ratio] 20.1 % High 11.5-15.0 [facility] Comment on above: Order Comment: Speci men Type: BLOOD SPECIMENOrdering Facility: [facility] Address: [address] [place] [address] Performed By: #### 5 8410-2 ####[facility] LABIA [id number] [place] [address] [place] Hematocrit (Bld) [Volume fraction] 33.3 % Low 39.0-51.0 [facility] Comment on above: Order Comment: Speci men Type: BLOOD SPECIMENOrdering Facility: [facility] Address: [address] [place], [place] [address] Performed By: #### 5 8410-2 ####[facility] LABIA [id number] [place] [address] [place] Hemoglobin (Bld) [Mass/Vol] 10.5 g/dL Low 13.0-17.0 [facility] Comment on above: Order Comment: Speci men Type: BLOOD SPECIMENOrdering Facility: [facility] Address: [address] Performed By: #### 5 8410-2 ####[facility] LABIA [id number] [address] MCH (RBC) [Entitic mass] 24.8 pg Low 26.0-34.0 [facility] Comment on above: Order Comment: Speci men Type: BLOOD SPECIMENOrdering Facility: [facility] Address: [address] Performed By: #### 5 8410-2 ####[facility] [id number] [address] [place] MCHC (RBC) [Mass/Vol] 31.5 g/dL Normal 30.5-36.0 [facility] Comment on above: Order Comment: Speci men Type: BLOOD SPECIMENOrdering Facility: [facility] Address: [address] [place], [place] [address] Performed By: #### 5 8410-2 ####[facility] [id number] [address] [place] MCV (RBC) [Entitic vol] 78.7 fL Low 80.0-100.0 [facility] Comment on above: Order Comment: Speci men Type: BLOOD SPECIMENOrdering Facility: [facility] Address: [address] [place], [place] [address] Performed By: #### 5 8410-2 ####[facility] [id number] [address] [place] Nucleated RBC (Bld) [#/Vol] 10*3/uL Normal <0.01 [facility] Comment on above: Order Comment: Speci men Type: BLOOD SPECIMENOrdering Facility: [facility] Address: [address] [place], [place] [address] Performed By: #### 5 8410-2 ####[facility] LABCLIA [id number] [place] [address] [place] Platelet mean volume (Bld) [Entitic vol] 10.3 fL Normal 9.0-12.7 [facility] Comment on above: Order Comment: Speci men Type: BLOOD SPECIMENOrdering Facility: [facility] Address: [address] [place], [place] [address] Performed By: #### 5 8410-2 ####[facility] LABCLIA [id number] [place] [address] [place] Platelets (Bld) [#/Vol] 295 10*3/uL Normal 150-400 [facility] Comment on above: Order Comment: Speci men Type: BLOOD SPECIMENOrdering Facility: [facility] Address: [address] [place] [address] Performed By: #### 5 8410-2 ####[facility] LABIA [id number] [place] [address] [place] RBC (Bld) [#/Vol] 4.23 10*6/uL Normal 4.20-6.00 [facility] Comment on above: Order Comment: Speci men Type: BLOOD SPECIMENOrdering Facility: [facility] Address: [address] [place], [place] [address] Performed By: #### 5 8410-2 ####[facility] LABIA [id number] [place] [address] [place] WBC (Bld) [#/Vol] 8.11 10*3/uL Normal 3.70-11.00 [facility] Comment on above: Order Comment: Speci men Type: BLOOD SPECIMENOrdering Facility: [facility] Address: [address] [place], [place] [address] Performed By: #### 5 8410-2 ####[facility] LABIA [id number] [address] [facility] Comprehensive metabolic 2000 panelon 04-05-2023 Albumin [Mass/Vol] 3.2 g/dL Low 3.9-4.9 [facility] Comment on above: Order Comment: Speci men Type: BLOOD SPECIMENOrdering Facility: [facility] Address: [address] [place] [address] Performed By: #### 2 4323-8 ####[facility] LABCLIA [id number] [place] [address] [place] ALP [Catalytic activity/Vol] 151 U/L High 38-113 [facility] Comment on above: Order Comment: Speci men Type: BLOOD SPECIMENOrdering Facility: [facility] Address: [address] [place] [address] Performed By: #### 2 4323-8 ####[facility] LABCLIA [id number] [address] [place] ALT [Catalytic activity/Vol] 18 U/L Normal 10-54 [facility] Comment on above: Order Comment: Speci men Type: BLOOD SPECIMENOrdering Facility: [facility] Address: [address] [place], [place] [address] Performed By: #### 2 4323-8 ####[facility] LABCLIA [id number] [place] [address] [place] Anion gap [Moles/Vol] 13 mmol/L Normal 9-18 [facility] Comment on above: Order Comment: Speci men Type: BLOOD SPECIMENOrdering Facility: [facility] Address: [address] [place], [place] [address] Performed By: #### 2 4323-8 ####[facility] LABCLIA [id number] [place] [address] [place] AST [Catalytic activity/Vol] 20 U/L Normal 14-40 [facility] Comment on above: Order Comment: Speci men Type: BLOOD SPECIMENOrdering Facility: [facility] Address: [address] Performed By: #### 2 4323-8 ####[facility] LABCLIA [id number] [place] [address] [place] Bilirubin [Mass/Vol] 1.2 mg/dL Normal 0.2-1.3 [facility] Comment on above: Order Comment: Speci men Type: BLOOD SPECIMENOrdering Facility: [facility] Address: [address] Performed By: #### 2 4323-8 ####[facility] LABCLIA [id number] [place] [address] [place] Calcium [Mass/Vol] 9.0 mg/dL Normal 8.5-10.2 [facility] Comment on above: Order Comment: Speci men Type: BLOOD SPECIMENOrdering Facility: [facility] Address: [address] Performed By: #### 2 4323-8 ####[facility] LABCLIA [id number] [place] [address] [place] Chloride [Moles/Vol] 96 mmol/L Low 97-105 [facility] Comment on above: Order Comment: Speci men Type: BLOOD SPECIMENOrdering Facility: [facility] Address: [address] Performed By: #### 2 4323-8 ####[facility] LABCLIA [id number] [place] [address] [place] CO2 [Moles/Vol] 22 mmol/L Normal 22-30 [facility] Comment on above: Order Comment: Speci men Type: BLOOD SPECIMENOrdering Facility: [facility] Address: [address] Performed By: #### 2 4323-8 ####[facility] LABCLIA [id number] [address] [facility] Creatinine [Mass/Vol] 2.15 mg/dL High 0.73-1.22 [facility] Comment on above: Order Comment: Joseline clemons Type: BLOOD SPECIMENOrdering Facility: [facility] Address: [address] [place] [address] Performed By: #### 2 4323-8 ####[facility] LABCLIA [id number] [address] Creatinine and Glomerular filtration rate.predicted panel (S/P/Bld) 33 mL/min/1.73m??? Low >=60 [facility] Comment on above: Order Comment: Joseline clemons Type: BLOOD SPECIMENOrdering Facility: [facility] Address: [address] [place] [address] Result Comment: Syl mated Glomerular Filtration Rate (eGFR) is calculated using the 2020 CKD-EPI creatinine equation. This equation utilizes serum creatinine, sex, and age as parameters. The creatinine assay has traceable calibration to isotope dilution-mass spectrometry. Refer to KDIGO guidelines for clinical interpretation. In patients with unstable renal function, e.g. those with acute kidney injury, the eGFR may not accurately reflect actual GFR. Performed By: #### 2 4323-8 ####[facility] LABIA [id number] [address] [place] Glucose [Mass/Vol] 208 mg/dL High 74-99 [facility] Comment on above: Order Comment: Joseline clemons Type: BLOOD SPECIMENOrdering Facility: [facility] Address: [address] [place] [address] Result Comment: The [place] [employer] (ADA) provides guidance for cutoff values for fasting glucose and random glucose. The ADA defines fasting as no caloric intake for at least 8 hours. Fasting plasma glucose results between 100 to 125 mg/dL indicate increased risk for diabetes (prediabetes).Fasting plasma glucose results greater than or equal to 126 mg/dL meet the criteria for diagnosis of diabetes. In the absence of unequivocal hyperglycemia, results should be confirmed by repeat testing. In a patient with classic symptoms of hyperglycemia or hyperglycemic crisis, random plasma glucose results greater than or equal to 200 mg/dL meet the criteria for diagnosis of diabetes.Reference: Standards of Medical Care in Diabetes 2016, [place] [employer]. Diabetes Care. 2016.39(Suppl 1). Performed By: #### 2 4323-8 ####[facility] LABCLIA [id number] [place] [address] [place] Potassium [Moles/Vol] 4.4 mmol/L Normal 3.7-5.1 [facility] Comment on above: Order Comment: Speci men Type: BLOOD SPECIMENOrdering Facility: [facility] Address: [address] [place] [address] Performed By: #### 2 4323-8 ####[facility] LABIA [id number] [place] [address] [place] Protein [Mass/Vol] 6.4 g/dL Normal 6.3-8.0 [facility] Comment on above: Order Comment: Speci men Type: BLOOD SPECIMENOrdering Facility: [facility] Address: [address] [place] [address] Performed By: #### 2 4323-8 ####[facility] LABIA [id number] [place] [address] [place] Sodium [Moles/Vol] 131 mmol/L Low 136-144 [facility] Comment on above: Order Comment: Speci men Type: BLOOD SPECIMENOrdering Facility: [facility] Address: [address] Performed By: #### 2 4323-8 ####[facility] LABCLIA [id number] [place] [address] [place] Urea nitrogen [Mass/Vol] 50 mg/dL High 9-24 [facility] Comment on above: Order Comment: Speci men Type: BLOOD SPECIMENOrdering Facility: [facility] Address: [address] Performed By: #### 2 4323-8 ####[facility] LABIA [id number] [place] [id number] [place] ECG COMPLETEon 04-05-2023 ECG COMPLETE Normal [facility] Magnesium SerPl-mCncon 04-05 Magnesium [Mass/Vol] 2.5 mg/dL High 1.7-2.3 [facility] Comment on above: Order Comment: Speci men Type: BLOOD SPECIMENOrdering Facility: [facility] Address: [address] [place] [address] Performed By: #### 1 9123-9 ####[facility] LABIA [id number] [place] [id number] [place] NUTRITIONon 04-05-2023 NUTRITION Normal [facility] CBC panel Auto (Bld)on 04-04 Erythrocyte distribution width (RBC) [Ratio] 20.0 % High 11.5-15.0 [facility] Comment on above: Order Comment: Speci men Type: BLOOD SPECIMENOrdering Facility: [facility] Address: [address] [place] [address] Performed By: #### 5 8410-2 ####[facility] [id number] [place] [address] [place] Hematocrit (Bld) [Volume fraction] 31.7 % Low 39.0-51.0 [facility] Comment on above: Order Comment: Speci men Type: BLOOD SPECIMENOrdering Facility: [facility] Address: [address] Performed By: #### 5 8410-2 ####[facility] LABIA [id number] [place] [address] [place] Hemoglobin (Bld) [Mass/Vol] 9.9 g/dL Low 13.0-17.0 [facility] Comment on above: Order Comment: Speci men Type: BLOOD SPECIMENOrdering Facility: [facility] Address: [address] [place] [address] Performed By: #### 5 8410-2 ####[facility] LABIA [id number] [address] STATES [facility] MCH (RBC) [Entitic mass] 24.5 pg Low 26.0-34.0 [facility] Comment on above: Order Comment: Speci men Type: BLOOD SPECIMENOrdering Facility: [facility] Address: [address] Performed By: #### 5 8410-2 ####[facility] LABIA [id number] [address] [place] MCHC (RBC) [Mass/Vol] 31.2 g/dL Normal 30.5-36.0 [facility] Comment on above: Order Comment: Speci men Type: BLOOD SPECIMENOrdering Facility: [facility] Address: [address] Performed By: #### 5 8410-2 ####[facility] [id number] [address] [place] MCV (RBC) [Entitic vol] 78.5 fL Low 80.0-100.0 [facility] Comment on above: Order Comment: Speci men Type: BLOOD SPECIMENOrdering Facility: [facility] Address: [address] Performed By: #### 5 8410-2 ####[facility] LABIA [id number] [address] [place] Nucleated RBC (Bld) [#/Vol] 10*3/uL Normal <0.01 [facility] Comment on above: Order Comment: Speci men Type: BLOOD SPECIMENOrdering Facility: [facility] Address: [address] Performed By: #### 5 8410-2 ####[facility] LABIA [id number] [place] [address] [place] Platelet mean volume (Bld) [Entitic vol] 10.0 fL Normal 9.0-12.7 [facility] Comment on above: Order Comment: Speci men Type: BLOOD SPECIMENOrdering Facility: [facility] Address: [address] [place] [address] Performed By: #### 5 8410-2 ####[facility] LABCLIA [id number] [place] [address] [place] Platelets (Bld) [#/Vol] 258 10*3/uL Normal 150-400 [facility] Comment on above: Order Comment: Speci men Type: BLOOD SPECIMENOrdering Facility: [facility] Address: [address] [place] [address] Performed By: #### 5 8410-2 ####[facility] LABIA [id number] [place] [address] [place] RBC (Bld) [#/Vol] 4.04 10*6/uL Low 4.20-6.00 [facility] Comment on above: Order Comment: Speci men Type: BLOOD SPECIMENOrdering Facility: [facility] Address: [address] [place], [place] [address] Performed By: #### 5 8410-2 ####[facility] LABCLIA [id number] [place] [address] [place] WBC (Bld) [#/Vol] 8.15 10*3/uL Normal 3.70-11.00 [facility] Comment on above: Order Comment: Speci men Type: BLOOD SPECIMENOrdering Facility: [facility] Address: [address] [place], [place] [address] Performed By: #### 5 8410-2 ####[facility] LABCLIA [id number] [place] [address] [place] CONSULT PROGon 04-04-2023 CONSULT PROG Normal [facility] Comprehensive metabolic 2000 panelon 04-04-2023 Albumin [Mass/Vol] 3.0 g/dL Low 3.9-4.9 [facility] Comment on above: Order Comment: Speci men Type: BLOOD SPECIMENOrdering Facility: [facility] Address: [address] [place] [address] Performed By: #### 1 9123-9, 91941-9, 89873-7 ####[facility] LABCLIA [id number] [place] [address] [place] ALP [Catalytic activity/Vol] 128 U/L High 38-113 [facility] Comment on above: Order Comment: Speci men Type: BLOOD SPECIMENOrdering Facility: [facility] Address: [address] [place] [address] Performed By: #### 1 9123-9, 74208-8, 23993-5 ####[facility] LABCLIA [id number] [place] [address] [place] ALT [Catalytic activity/Vol] 16 U/L Normal 10-54 [facility] Comment on above: Order Comment: Speci men Type: BLOOD SPECIMENOrdering Facility: [facility] Address: [address] [place] [address] Performed By: #### 1 9123-9, 98421-4, 12785-1 ####[facility] LABCLIA [id number] [place] [address] [place] Anion gap [Moles/Vol] 11 mmol/L Normal 9-18 [facility] Comment on above: Order Comment: Speci men Type: BLOOD SPECIMENOrdering Facility: [facility] Address: [address] [place] [address] Performed By: #### 1 9123-9, 39537-8, 14158-9 ####[facility] LABCLIA [id number] [address] [address] [place] AST [Catalytic activity/Vol] 26 U/L Normal 14-40 [facility] Comment on above: Order Comment: Speci men Type: BLOOD SPECIMENOrdering Facility: [facility] Address: [address] [place] [address] Result Comment: Resu lts may be falsely increased due to interference from hemolysis. Suggest reorder as clinically indicated. Performed By: #### 1 9123-9, 84022-6, 16995-5 ####[facility] LABCLIA [id number] [place] [address] [place] Bilirubin [Mass/Vol] 1.0 mg/dL Normal 0.2-1.3 [facility] Comment on above: Order Comment: Speci men Type: BLOOD SPECIMENOrdering Facility: [facility] Address: [address] [place] [address] Performed By: #### 1 9123-9, 59664-9, 14200-5 ####[facility] LABCLIA [id number] [place] [address] [place] Calcium [Mass/Vol] 8.8 mg/dL Normal 8.5-10.2 [facility] Comment on above: Order Comment: Speci men Type: BLOOD SPECIMENOrdering Facility: [facility] Address: [address] [place] [address] Performed By: #### 1 9123-9, 26808-1, 34278-7 ####[facility] LABCLIA [id number] [address] [place] Chloride [Moles/Vol] 95 mmol/L Low 97-105 [facility] Comment on above: Order Comment: Speci men Type: BLOOD SPECIMENOrdering Facility: [facility] Address: [address] [place] [address] Performed By: #### 1 9123-9, 88679-6, 50517-7 ####[facility] LABCLIA [id number] [place] [address] [place] CO2 [Moles/Vol] 22 mmol/L Normal 22-30 [facility] Comment on above: Order Comment: Joseline clemons Type: BLOOD SPECIMENOrdering Facility: [facility] Address: [address] [place] [address] Performed By: #### 1 9123-9, 86025-4, 44208-0 ####[facility] LABCLIA [id number] [place] [address] [place] Creatinine [Mass/Vol] 2.00 mg/dL High 0.73-1.22 [facility] Comment on above: Order Comment: Joseline clemons Type: BLOOD SPECIMENOrdering Facility: [facility] Address: [address] [place] [address] Performed By: #### 1 9123-9, 07340-5, 79679-7 ####[facility] LABCLIA [id number] [place] [address] [place] Creatinine and Glomerular filtration rate.predicted panel (S/P/Bld) 36 mL/min/1.73m??? Low >=60 [facility] Comment on above: Order Comment: Joseline clemons Type: BLOOD SPECIMENOrdering Facility: [facility] Address: [address] [place] [address] Result Comment: Syl mated Glomerular Filtration Rate (eGFR) is calculated using the 2020 CKD-EPI creatinine equation. This equation utilizes serum creatinine, sex, and age as parameters. The creatinine assay has traceable calibration to isotope dilution-mass spectrometry. Refer to KDIGO guidelines for clinical interpretation. In patients with unstable renal function, e.g. those with acute kidney injury, the eGFR may not accurately reflect actual GFR. Performed By: #### 1 9123-9, 15486-3, 84928-0 ####[facility] LABCLIA [id number] [place] [address] [place] Glucose [Mass/Vol] 159 mg/dL High 74-99 [facility] Comment on above: Order Comment: Speci men Type: BLOOD SPECIMENOrdering Facility: [facility] Address: [address] [place] [address] Result Comment: The [place] [employer] (ADA) provides guidance for cutoff values for fasting glucose and random glucose. The ADA defines fasting as no caloric intake for at least 8 hours. Fasting plasma glucose results between 100 to 125 mg/dL indicate increased risk for diabetes (prediabetes).Fasting plasma glucose results greater than or equal to 126 mg/dL meet the criteria for diagnosis of diabetes. In the absence of unequivocal hyperglycemia, results should be confirmed by repeat testing. In a patient with classic symptoms of hyperglycemia or hyperglycemic crisis, random plasma glucose results greater than or equal to 200 mg/dL meet the criteria for diagnosis of diabetes.Reference: Standards of Medical Care in Diabetes 2016, [place] [employer]. Diabetes Care. 2016.39(Suppl 1). Performed By: #### 1 9123-9, 00898-2, 79850-2 ####[facility] LABCLIA [id number] [place] [address] [place] Potassium [Moles/Vol] 4.2 mmol/L Normal 3.7-5.1 [facility] Comment on above: Order Comment: Reneei men Type: BLOOD SPECIMENOrdering Facility: [facility] Address: [address] Performed By: #### 1 9123-9, 05140-1, 01085-1 ####[facility] LABCLIA [id number] [place] [address] [place] Protein [Mass/Vol] 6.1 g/dL Low 6.3-8.0 [facility] Comment on above: Order Comment: Speci men Type: BLOOD SPECIMENOrdering Facility: [facility] Address: [address] [place] [address] Performed By: #### 1 9123-9, 24282-9, 27916-9 ####[facility] LABCLIA [id number] [place] [address] [place] Sodium [Moles/Vol] 128 mmol/L Low 136-144 [facility] Comment on above: Order Comment: Speci men Type: BLOOD SPECIMENOrdering Facility: [facility] Address: [address] [place] [address] Performed By: #### 1 9123-9, 78097-7, 14778-7 ####[facility] LABCLIA [id number] [place] [address] [place] Urea nitrogen [Mass/Vol] 47 mg/dL High 9-24 [facility] Comment on above: Order Comment: Speci men Type: BLOOD SPECIMENOrdering Facility: [facility] Address: [address] [place] [address] Performed By: #### 1 9123-9, 87744-6, 38562-0 ####[facility] LABCLIA [id number] [place] [address] [place] Magnesium [facility] Magnesium [Mass/Vol] 2.4 mg/dL High 1.7-2.3 [facility] Comment on above: Order Comment: Speci men Type: BLOOD SPECIMENOrdering Facility: [facility] Address: [address] [place] [address] Performed By: #### 1 9123-9, 20170-0, 74772-8 ####[facility] LABCLIA [id number] [place] [address] [place] NT-proBNP SerPl-mCncon 04-04 Natriuretic peptide.B prohormone N-Terminal [Mass/Vol] 5065 pg/mL High <125 [facility] Comment on above: Order Comment: Speci men Type: BLOOD SPECIMENOrdering Facility: [facility] Address: [address] [place] [address] Performed By: #### 1 9123-9, 39385-3, 36887-4 ####[facility] LABCLIA [id number] [place] [address] [place] CASE MANAGEMon 04-03-2023 CASE MANAGEM Normal [facility] CBC panel Auto (Bld)on 04-03 Erythrocyte distribution width (RBC) [Ratio] 20.2 % High 11.5-15.0 [facility] Comment on above: Order Comment: Speci men Type: BLOOD SPECIMENOrdering Facility: [facility] Address: [address] [place] [address] Performed By: #### 5 8410-2 ####[facility] LABIA [id number] [place] [address] [place] Hematocrit (Bld) [Volume fraction] 34.2 % Low 39.0-51.0 [facility] Comment on above: Order Comment: Speci men Type: BLOOD SPECIMENOrdering Facility: [facility] Address: [address] [place] [address] Performed By: #### 5 8410-2 ####[facility] LABIA [id number] [place] [address] [place] Hemoglobin (Bld) [Mass/Vol] 10.3 g/dL Low 13.0-17.0 [facility] Comment on above: Order Comment: Speci men Type: BLOOD SPECIMENOrdering Facility: [facility] Address: [address] [place] [address] Performed By: #### 5 8410-2 ####[facility] LABIA [id number] [place] [address] [place] MCH (RBC) [Entitic mass] 24.4 pg Low 26.0-34.0 [facility] Comment on above: Order Comment: Speci men Type: BLOOD SPECIMENOrdering Facility: [facility] Address: [address] [place] [address] Performed By: #### 5 8410-2 ####[facility] LABIA [id number] [place] [address] [place] MCHC (RBC) [Mass/Vol] 30.1 g/dL Low 30.5-36.0 [facility] Comment on above: Order Comment: Speci men Type: BLOOD SPECIMENOrdering Facility: [facility] Address: [address] [place] [address] Performed By: #### 5 8410-2 ####[facility] LABCLIA [id number] [address] [place] MCV (RBC) [Entitic vol] 81.0 fL Normal 80.0-100.0 [facility] Comment on above: Order Comment: Speci men Type: BLOOD SPECIMENOrdering Facility: [facility] Address: [address] [place], [place] [address] Performed By: #### 5 8410-2 ####[facility] LABCLIA [id number] [address] [place] Nucleated RBC (Bld) [#/Vol] 10*3/uL Normal <0.01 [facility] Comment on above: Order Comment: Speci men Type: BLOOD SPECIMENOrdering Facility: [facility] Address: [address] [place], [place] [address] Performed By: #### 5 8410-2 ####[facility] LABIA [id number] [address] [place] Platelet mean volume (Bld) [Entitic vol] 10.3 fL Normal 9.0-12.7 [facility] Comment on above: Order Comment: Speci men Type: BLOOD SPECIMENOrdering Facility: [facility] Address: [address] [place], [place] [address] Performed By: #### 5 8410-2 ####[facility] LABCLIA [id number] [place] [address] [place] Platelets (Bld) [#/Vol] 235 10*3/uL Normal 150-400 [facility] Comment on above: Order Comment: Speci men Type: BLOOD SPECIMENOrdering Facility: [facility] Address: [address] [place], [place] [address] Performed By: #### 5 8410-2 ####[facility] LABIA [id number] [place] [address] [place] RBC (Bld) [#/Vol] 4.22 10*6/uL Normal 4.20-6.00 [facility] Comment on above: Order Comment: Speci men Type: BLOOD SPECIMENOrdering Facility: [facility] Address: [address] Performed By: #### 5 8410-2 ####[facility] LABIA [id number] [place] [address] [place] WBC (Bld) [#/Vol] 7.92 10*3/uL Normal 3.70-11.00 [facility] Comment on above: Order Comment: Speci men Type: BLOOD SPECIMENOrdering Facility: [facility] Address: [address] [place], [place] [address] Performed By: #### 5 8410-2 ####[facility] LABIA [id number] [place] [address] [place] Comprehensive metabolic 2000 panelon 04-03-2023 Albumin [Mass/Vol] 3.1 g/dL Low 3.9-4.9 [facility] Comment on above: Order Comment: Speci men Type: BLOOD SPECIMENOrdering Facility: [facility] Address: [address] [place], [place] [address] Performed By: #### 2 4323-8 ####[facility] [id number] [place] [address] [place] ALP [Catalytic activity/Vol] 127 U/L High 38-113 [facility] Comment on above: Order Comment: Speci men Type: BLOOD SPECIMENOrdering Facility: [facility] Address: [address] [place], [place] [address] Performed By: #### 2 4323-8 ####[facility] LABCLIA [id number] [address] [place] ALT [Catalytic activity/Vol] 16 U/L Normal 10-54 [facility] Comment on above: Order Comment: Speci men Type: BLOOD SPECIMENOrdering Facility: [facility] Address: [address] [place], [place] [address] Performed By: #### 2 4323-8 ####[facility] LABCLIA [id number] [place] [address] [place] Anion gap [Moles/Vol] 10 mmol/L Normal 9-18 [facility] Comment on above: Order Comment: Speci men Type: BLOOD SPECIMENOrdering Facility: [facility] Address: [address] [address] Performed By: #### 2 4323-8 ####[facility] LABCLIA [id number] [place] [address] [place] AST [Catalytic activity/Vol] 16 U/L Normal 14-40 [facility] Comment on above: Order Comment: Speci men Type: BLOOD SPECIMENOrdering Facility: [facility] Address: [address] [place], [place] [address] Performed By: #### 2 4323-8 ####[facility] LABCLIA [id number] [place] [address] [place] Bilirubin [Mass/Vol] 1.2 mg/dL Normal 0.2-1.3 [facility] Comment on above: Order Comment: Speci men Type: BLOOD SPECIMENOrdering Facility: [facility] Address: [address] [place], [place] [address] Performed By: #### 2 4323-8 ####[facility] LABCLIA [id number] [place] [address] [place] Calcium [Mass/Vol] 8.8 mg/dL Normal 8.5-10.2 [facility] Comment on above: Order Comment: Speci men Type: BLOOD SPECIMENOrdering Facility: [facility] Address: [address] [address] Performed By: #### 2 4323-8 ####[facility] LABCLIA [id number] [place] [address] [place] Chloride [Moles/Vol] 96 mmol/L Low 97-105 [facility] Comment on above: Order Comment: Speci men Type: BLOOD SPECIMENOrdering Facility: [facility] Address: [address] [place] [address] Performed By: #### 2 4323-8 ####[facility] LABCLIA [id number] [place] [address] [place] CO2 [Moles/Vol] 23 mmol/L Normal 22-30 [facility] Comment on above: Order Comment: Speci men Type: BLOOD SPECIMENOrdering Facility: [facility] Address: [address] [place], [place] [address] Performed By: #### 2 4323-8 ####[facility] LABCLIA [id number] [place] [address] [place] Creatinine [Mass/Vol] 1.96 mg/dL High 0.73-1.22 [facility] Comment on above: Order Comment: Speci men Type: BLOOD SPECIMENOrdering Facility: [facility] Address: [address] Performed By: #### 2 4323-8 ####[facility] LABCLIA [id number] [place] [address] [place] Creatinine and Glomerular filtration rate.predicted panel (S/P/Bld) 37 mL/min/1.73m??? Low >=60 [facility] Comment on above: Order Comment: Speci men Type: BLOOD SPECIMENOrdering Facility: [facility] Address: [address] [id number] Result Comment: Syl mated Glomerular Filtration Rate (eGFR) is calculated using the 2020 CKD-EPI creatinine equation. This equation utilizes serum creatinine, sex, and age as parameters. The creatinine assay has traceable calibration to isotope dilution-mass spectrometry. Refer to KDIGO guidelines for clinical interpretation. In patients with unstable renal function, e.g. those with acute kidney injury, the eGFR may not accurately reflect actual GFR. Performed By: #### 2 4323-8 ####[facility] LABCLIA [id number] [place] [address] [place] Glucose [Mass/Vol] 168 mg/dL High 74-99 [facility] Comment on above: Order Comment: Speccate clemons Type: BLOOD SPECIMENOrdering Facility: [facility] Address: [address] [address] Result Comment: The [place] [employer] (ADA) provides guidance for cutoff values for fasting glucose and random glucose. The ADA defines fasting as no caloric intake for at least 8 hours. Fasting plasma glucose results between 100 to 125 mg/dL indicate increased risk for diabetes (prediabetes).Fasting plasma glucose results greater than or equal to 126 mg/dL meet the criteria for diagnosis of diabetes. In the absence of unequivocal hyperglycemia, results should be confirmed by repeat testing. In a patient with classic symptoms of hyperglycemia or hyperglycemic crisis, random plasma glucose results greater than or equal to 200 mg/dL meet the criteria for diagnosis of diabetes.Reference: Standards of Medical Care in Diabetes 2016, [place] [employer]. Diabetes Care. 2016.39(Suppl 1). Performed By: #### 2 4323-8 ####[facility] LABCLIA [id number] [place] [address] [place] Potassium [Moles/Vol] 4.0 mmol/L Normal 3.7-5.1 [facility] Comment on above: Order Comment: Joseline clemons Type: BLOOD SPECIMENOrdering Facility: [facility] Address: [address] [phone] Performed By: #### 2 4323-8 ####[facility] LABCLIA [id number] [place] [address] [place] Protein [Mass/Vol] 6.1 g/dL Low 6.3-8.0 [facility] Comment on above: Order Comment: Speci men Type: BLOOD SPECIMENOrdering Facility: [facility] Address: [address] [address] Performed By: #### 2 4323-8 ####[facility] LABCLIA [id number] [place] [address] [place] Sodium [Moles/Vol] 129 mmol/L Low 136-144 [facility] Comment on above: Order Comment: Speci men Type: BLOOD SPECIMENOrdering Facility: [facility] Address: [address] [place] [address] Performed By: #### 2 4323-8 ####[facility] LABIA [id number] [place] [address] [place] Urea nitrogen [Mass/Vol] 49 mg/dL High 9-24 [facility] Comment on above: Order Comment: Speci men Type: BLOOD SPECIMENOrdering Facility: [facility] Address: [address] [place] [address] Performed By: #### 2 4323-8 ####[facility] LABIA [id number] [place] [address] [place] CBC panel Auto (Bld)on 04-02 Erythrocyte distribution width (RBC) [Ratio] 20.2 % High 11.5-15.0 [facility] Comment on above: Order Comment: Speci men Type: BLOOD SPECIMENOrdering Facility: [facility] Address: [address] [place] [address] Performed By: #### 5 8410-2 ####[facility] LABCLIA [id number] [place] [address] [place] Hematocrit (Bld) [Volume fraction] 32.1 % Low 39.0-51.0 [facility] Comment on above: Order Comment: Speci men Type: BLOOD SPECIMENOrdering Facility: [facility] Address: [address] [place] [address] Performed By: #### 5 8410-2 ####[facility] LABCLIA [id number] [place] [address] [place] Hemoglobin (Bld) [Mass/Vol] 10.1 g/dL Low 13.0-17.0 [facility] Comment on above: Order Comment: Speci men Type: BLOOD SPECIMENOrdering Facility: [facility] Address: [address] [place] [address] Performed By: #### 5 8410-2 ####[facility] LABIA [id number] [place] [address] [place] MCH (RBC) [Entitic mass] 24.6 pg Low 26.0-34.0 [facility] Comment on above: Order Comment: Speci men Type: BLOOD SPECIMENOrdering Facility: [facility] Address: [address] [place] [address] Performed By: #### 5 8410-2 ####[facility] LABIA [id number] [place] [address] [place] MCHC (RBC) [Mass/Vol] 31.5 g/dL Normal 30.5-36.0 [facility] Comment on above: Order Comment: Speci men Type: BLOOD SPECIMENOrdering Facility: [facility] Address: [address] [place], [place] [address] Performed By: #### 5 8410-2 ####[facility] LABIA [id number] [place] [address] [place] MCV (RBC) [Entitic vol] 78.1 fL Low 80.0-100.0 [facility] Comment on above: Order Comment: Speci men Type: BLOOD SPECIMENOrdering Facility: [facility] Address: [address] [place] [address] Performed By: #### 5 8410-2 ####[facility] LABCLIA [id number] [place] [address] [place] Nucleated RBC (Bld) [#/Vol] 10*3/uL Normal <0.01 [facility] Comment on above: Order Comment: Speci men Type: BLOOD SPECIMENOrdering Facility: [facility] Address: [address] Performed By: #### 5 8410-2 ####[facility] LABIA [id number] [place] [address] [place] Platelet mean volume (Bld) [Entitic vol] 9.8 fL Normal 9.0-12.7 [facility] Comment on above: Order Comment: Speci men Type: BLOOD SPECIMENOrdering Facility: [facility] Address: [address] Performed By: #### 5 8410-2 ####[facility] LABCLIA [id number] [place] [address] [place] Platelets (Bld) [#/Vol] 222 10*3/uL Normal 150-400 [facility] Comment on above: Order Comment: Speci men Type: BLOOD SPECIMENOrdering Facility: [facility] Address: [address] [place] [address] Performed By: #### 5 8410-2 ####[facility] LABCLIA [id number] [place] [address] [place] RBC (Bld) [#/Vol] 4.11 10*6/uL Low 4.20-6.00 [facility] Comment on above: Order Comment: Speci men Type: BLOOD SPECIMENOrdering Facility: [facility] Address: [address] Performed By: #### 5 8410-2 ####[facility] LABCLIA [id number] [place] [address] [place] WBC (Bld) [#/Vol] 8.44 10*3/uL Normal 3.70-11.00 [facility] Comment on above: Order Comment: Speci men Type: BLOOD SPECIMENOrdering Facility: [facility] Address: [address] [place] [address] Performed By: #### 5 8410-2 ####[facility] LABCLIA [id number] [place] [address] [place] CONSULT PROGon 04-02-2023 CONSULT PROG Normal [facility] Comprehensive metabolic 2000 panelon 04-02-2023 Albumin [Mass/Vol] 3.3 g/dL Low 3.9-4.9 [facility] Comment on above: Order Comment: Speci men Type: BLOOD SPECIMENOrdering Facility: [facility] Address: [address] [place], [place] [address] Performed By: #### 1 9123-9, 78379-1 ####[facility] LABIA [id number] [place] [address] [place] ALP [Catalytic activity/Vol] 133 U/L High 38-113 [facility] Comment on above: Order Comment: Speci men Type: BLOOD SPECIMENOrdering Facility: [facility] Address: [address] [place], [place] [address] Performed By: #### 1 9123-9, 66767-4 ####[facility] LABIA [id number] [place] [address] [place] ALT [Catalytic activity/Vol] 16 U/L Normal 10-54 [facility] Comment on above: Order Comment: Speci men Type: BLOOD SPECIMENOrdering Facility: [facility] Address: [address] [place], [place] [address] Performed By: #### 1 9123-9, 05021-5 ####[facility] LABCLIA [id number] [place] [address] [place] Anion gap [Moles/Vol] 14 mmol/L Normal 9-18 [facility] Comment on above: Order Comment: Speci men Type: BLOOD SPECIMENOrdering Facility: [facility] Address: [address] [place] [address] Performed By: #### 1 9123-9, 86752-2 ####[facility] LABCLIA [id number] [place] [address] [place] AST [Catalytic activity/Vol] 17 U/L Normal 14-40 [facility] Comment on above: Order Comment: Speci men Type: BLOOD SPECIMENOrdering Facility: [facility] Address: [address] [place] [address] Performed By: #### 1 9123-9, 60013-5 ####[facility] LABCLIA [id number] [place] [address] [place] Bilirubin [Mass/Vol] 1.6 mg/dL High 0.2-1.3 [facility] Comment on above: Order Comment: Speci men Type: BLOOD SPECIMENOrdering Facility: [facility] Address: [address] [place] [address] Performed By: #### 1 9123-9, 46510-6 ####[facility] LABCLIA [id number] [place] [address] [place] Calcium [Mass/Vol] 9.1 mg/dL Normal 8.5-10.2 [facility] Comment on above: Order Comment: Speci men Type: BLOOD SPECIMENOrdering Facility: [facility] Address: [address] [place], [place] [address] Performed By: #### 1 9123-9, 67151-8 ####[facility] LABCLIA [id number] [place] [address] [place] Chloride [Moles/Vol] 96 mmol/L Low 97-105 [facility] Comment on above: Order Comment: Speci men Type: BLOOD SPECIMENOrdering Facility: [facility] Address: [address] Performed By: #### 1 9123-9, ####[facility] LABCLIA [id number] [place] [address] [place] CO2 [Moles/Vol] 21 mmol/L Low 22-30 [facility] Comment on above: Order Comment: Speci men Type: BLOOD SPECIMENOrdering Facility: [facility] Address: [address] [address] Performed By: #### 1 9123-9, ####[facility] LABCLIA [id number] [place] [address] [place] Creatinine [Mass/Vol] 2.07 mg/dL High 0.73-1.22 [facility] Comment on above: Order Comment: Speci men Type: BLOOD SPECIMENOrdering Facility: [facility] Address: [address] [place] [address] Performed By: #### 1 23-9, ####[facility] LABIA [id number] [address] [place] Creatinine and Glomerular filtration rate.predicted panel (S/P/Bld) 35 mL/min/1.73m??? Low >=60 [facility] Comment on above: Order Comment: Speci men Type: BLOOD SPECIMENOrdering Facility: [facility] Address: [address] [place] [address] Result Comment: Syl mated Glomerular Filtration Rate (eGFR) is calculated using the 2020 CKD-EPI creatinine equation. This equation utilizes serum creatinine, sex, and age as parameters. The creatinine assay has traceable calibration to isotope dilution-mass spectrometry. Refer to KDIGO guidelines for clinical interpretation. In patients with unstable renal function, e.g. those with acute kidney injury, the eGFR may not accurately reflect actual GFR. Performed By: #### 1 9123-9, ####[facility] LABCLIA [id number] [place] [address] [place] Glucose [Mass/Vol] 155 mg/dL High 74-99 [facility] Comment on above: Order Comment: Speci men Type: BLOOD SPECIMENOrdering Facility: [facility] Address: [address] [place] [address] Result Comment: The [place] [employer] (ADA) provides guidance for cutoff values for fasting glucose and random glucose. The ADA defines fasting as no caloric intake for at least 8 hours. Fasting plasma glucose results between 100 to 125 mg/dL indicate increased risk for diabetes (prediabetes).Fasting plasma glucose results greater than or equal to 126 mg/dL meet the criteria for diagnosis of diabetes. In the absence of unequivocal hyperglycemia, results should be confirmed by repeat testing. In a patient with classic symptoms of hyperglycemia or hyperglycemic crisis, random plasma glucose results greater than or equal to 200 mg/dL meet the criteria for diagnosis of diabetes.Reference: Standards of Medical Care in Diabetes 2016, [place] [employer]. Diabetes Care. 2016.39(Suppl 1). Performed By: #### 1 9123-9, ####[facility] LABIA [id number] [place] [address] [place] Potassium [Moles/Vol] 4.0 mmol/L Normal 3.7-5.1 [facility] Comment on above: Order Comment: Speci men Type: BLOOD SPECIMENOrdering Facility: [facility] Address: [address] [address] Performed By: #### 1 9123-9, ####[facility] LABIA [id number] [place] [address] [place] Protein [Mass/Vol] 6.5 g/dL Normal 6.3-8.0 [facility] Comment on above: Order Comment: Speci men Type: BLOOD SPECIMENOrdering Facility: [facility] Address: [address] [address] Performed By: #### 1 9123-9, 86474-5 ####[facility] LABCLIA [id number] [place] [address] [place] Sodium [Moles/Vol] 131 mmol/L Low 136-144 [facility] Comment on above: Order Comment: Speci men Type: BLOOD SPECIMENOrdering Facility: [facility] Address: [address] [place], [place] [address] Performed By: #### 1 9123-9, 10644-0 ####[facility] LABCLIA [id number] [place] [address] [place] Urea nitrogen [Mass/Vol] 50 mg/dL High 9-24 [facility] Comment on above: Order Comment: Speci men Type: BLOOD SPECIMENOrdering Facility: [facility] Address: [address] [place] [address] Performed By: #### 1 9123-9, 80488-2 ####[facility] LABCLIA [id number] [place] [address] [place] Magnesium SerPl-mCncon 04-02 Magnesium [Mass/Vol] 2.3 mg/dL Normal 1.7-2.3 [facility] Comment on above: Order Comment: Speci men Type: BLOOD SPECIMENOrdering Facility: [facility] Address: [address] [place], [place] [address] Performed By: #### 1 9123-9, 18504-1 ####[facility] LABCLIA [id number] [place] [id number] [place] XR CHEST 2V FRONTAL/LATon XR CHEST 2V FRONTAL/LAT Normal [facility] CBC panel Auto (Bld)on 04-01 Erythrocyte distribution width (RBC) [Ratio] 20.5 % High 11.5-15.0 [facility] Comment on above: Order Comment: Speci men Type: BLOOD SPECIMENOrdering Facility: [facility] Address: [address] Performed By: #### 5 8410-2 ####[facility] LABIA [id number] [address] [place] Hematocrit (Bld) [Volume fraction] 34.3 % Low 39.0-51.0 [facility] Comment on above: Order Comment: Speci men Type: BLOOD SPECIMENOrdering Facility: [facility] Address: [address] Performed By: #### 5 8410-2 ####[facility] LABIA [id number] [place] [address] [place] Hemoglobin (Bld) [Mass/Vol] 10.5 g/dL Low 13.0-17.0 [facility] Comment on above: Order Comment: Speci men Type: BLOOD SPECIMENOrdering Facility: [facility] Address: [address] [place], [place] [address] Performed By: #### 5 8410-2 ####[facility] LABIA [id number] [place] [address] [place] MCH (RBC) [Entitic mass] 24.7 pg Low 26.0-34.0 [facility] Comment on above: Order Comment: Speci men Type: BLOOD SPECIMENOrdering Facility: [facility] Address: [address] Performed By: #### 5 8410-2 ####[facility] LABIA [id number] [address] [place] MCHC (RBC) [Mass/Vol] 30.6 g/dL Normal 30.5-36.0 [facility] Comment on above: Order Comment: Speci men Type: BLOOD SPECIMENOrdering Facility: [facility] Address: [address] [place], [place] [address] Performed By: #### 5 8410-2 ####[facility] LABIA [id number] [place] [address] [place] MCV (RBC) [Entitic vol] 80.7 fL Normal 80.0-100.0 [facility] Comment on above: Order Comment: Speci men Type: BLOOD SPECIMENOrdering Facility: [facility] Address: [address] [place] [address] Performed By: #### 5 8410-2 ####[facility] LABIA [id number] [place] [address] [place] Nucleated RBC (Bld) [#/Vol] 10*3/uL Normal <0.01 [facility] Comment on above: Order Comment: Speci men Type: BLOOD SPECIMENOrdering Facility: [facility] Address: [address] [place] [address] Performed By: #### 5 8410-2 ####[facility] [id number] [place] [address] [place] Platelet mean volume (Bld) [Entitic vol] 9.8 fL Normal 9.0-12.7 [facility] Comment on above: Order Comment: Speci men Type: BLOOD SPECIMENOrdering Facility: [facility] Address: [address] [place], [place] [address] Performed By: #### 5 8410-2 ####[facility] [id number] [place] [address] [place] Platelets (Bld) [#/Vol] 215 10*3/uL Normal 150-400 [facility] Comment on above: Order Comment: Speci men Type: BLOOD SPECIMENOrdering Facility: [facility] Address: [address] [place], [place] [address] Performed By: #### 5 8410-2 ####[facility] LABIA [id number] [place] [address] [place] RBC (Bld) [#/Vol] 4.25 10*6/uL Normal 4.20-6.00 [facility] Comment on above: Order Comment: Speci men Type: BLOOD SPECIMENOrdering Facility: [facility] Address: [address] [place], [place] [address] Performed By: #### 5 8410-2 ####[facility] LABCLIA [id number] [place] [address] [place] WBC (Bld) [#/Vol] 7.96 10*3/uL Normal 3.70-11.00 [facility] Comment on above: Order Comment: Speci men Type: BLOOD SPECIMENOrdering Facility: [facility] Address: [address] [place], [place] [address] Performed By: #### 5 8410-2 ####[facility] LABCLIA [id number] [place] [address] [place] CONSULT PROGon 04-01-2023 CONSULT PROG Normal [facility] Comprehensive metabolic 2000 panelon 04-01-2023 Albumin [Mass/Vol] 3.4 g/dL Low 3.9-4.9 [facility] Comment on above: Order Comment: Speci men Type: BLOOD SPECIMENOrdering Facility: [facility] Address: [address] [place], [place] [address] Performed By: #### 2 4323-8 ####[facility] LABCLIA [id number] [place] [address] [place] ALP [Catalytic activity/Vol] 139 U/L High 38-113 [facility] Comment on above: Order Comment: Speci men Type: BLOOD SPECIMENOrdering Facility: [facility] Address: [address] [place], [place] [address] Performed By: #### 2 4323-8 ####[facility] LABCLIA [id number] [place] [address] [place] ALT [Catalytic activity/Vol] 21 U/L Normal 10-54 [facility] Comment on above: Order Comment: Speci men Type: BLOOD SPECIMENOrdering Facility: [facility] Address: [address] Performed By: #### 2 4323-8 ####[facility] LABCLIA [id number] [place] [address] [place] Anion gap [Moles/Vol] 14 mmol/L Normal 9-18 [facility] Comment on above: Order Comment: Speci men Type: BLOOD SPECIMENOrdering Facility: [facility] Address: [address] Performed By: #### 2 4323-8 ####[facility] LABCLIA [id number] [place] [address] [place] AST [Catalytic activity/Vol] 18 U/L Normal 14-40 [facility] Comment on above: Order Comment: Speci men Type: BLOOD SPECIMENOrdering Facility: [facility] Address: [address] Performed By: #### 2 4323-8 ####[facility] LABCLIA [id number] [place] [address] [place] Bilirubin [Mass/Vol] 1.9 mg/dL High 0.2-1.3 [facility] Comment on above: Order Comment: Speci men Type: BLOOD SPECIMENOrdering Facility: [facility] Address: [address] Performed By: #### 2 4323-8 ####[facility] LABCLIA [id number] [place] [address] [place] Calcium [Mass/Vol] 9.1 mg/dL Normal 8.5-10.2 [facility] Comment on above: Order Comment: Speci men Type: BLOOD SPECIMENOrdering Facility: [facility] Address: [address] Performed By: #### 2 4323-8 ####[facility] LABCLIA [id number] [place] [address] [place] Chloride [Moles/Vol] 95 mmol/L Low 97-105 [facility] Comment on above: Order Comment: Speci men Type: BLOOD SPECIMENOrdering Facility: [facility] Address: [address] [place] [address] Performed By: #### 2 4323-8 ####[facility] LABCLIA [id number] [place] [address] [place] CO2 [Moles/Vol] 22 mmol/L Normal 22-30 [facility] Comment on above: Order Comment: Speci men Type: BLOOD SPECIMENOrdering Facility: [facility] Address: [address] [place] [address] Performed By: #### 2 4323-8 ####[facility] LABCLIA [id number] [address] STATES OF [facility] Creatinine [Mass/Vol] 2.11 mg/dL High 0.73-1.22 [facility] Comment on above: Order Comment: Speci men Type: BLOOD SPECIMENOrdering Facility: [facility] Address: [address] [place] [address] Performed By: #### 2 4323-8 ####[facility] LABIA [id number] [address] OF [facility] Creatinine and Glomerular filtration rate.predicted panel (S/P/Bld) 34 mL/min/1.73m??? Low >=60 [facility] Comment on above: Order Comment: Speci men Type: BLOOD SPECIMENOrdering Facility: [facility] Address: [address] [place] [address] Result Comment: Syl mated Glomerular Filtration Rate (eGFR) is calculated using the 2020 CKD-EPI creatinine equation. This equation utilizes serum creatinine, sex, and age as parameters. The creatinine assay has traceable calibration to isotope dilution-mass spectrometry. Refer to KDIGO guidelines for clinical interpretation. In patients with unstable renal function, e.g. those with acute kidney injury, the eGFR may not accurately reflect actual GFR. Performed By: #### 2 4323-8 ####[facility] LABCLIA [id number] [place] [address] [place] Glucose [Mass/Vol] 188 mg/dL High 74-99 [facility] Comment on above: Order Comment: Speci men Type: BLOOD SPECIMENOrdering Facility: [facility] Address: [address] [place], [place] [address] Result Comment: The [place] [employer] (ADA) provides guidance for cutoff values for fasting glucose and random glucose. The ADA defines fasting as no caloric intake for at least 8 hours. Fasting plasma glucose results between 100 to 125 mg/dL indicate increased risk for diabetes (prediabetes).Fasting plasma glucose results greater than or equal to 126 mg/dL meet the criteria for diagnosis of diabetes. In the absence of unequivocal hyperglycemia, results should be confirmed by repeat testing. In a patient with classic symptoms of hyperglycemia or hyperglycemic crisis, random plasma glucose results greater than or equal to 200 mg/dL meet the criteria for diagnosis of diabetes.Reference: Standards of Medical Care in Diabetes 2016, [place] [employer]. Diabetes Care. 2016.39(Suppl 1). Performed By: #### 2 4323-8 ####[facility] LABCLIA [id number] [place] [address] [place] Potassium [Moles/Vol] 4.3 mmol/L Normal 3.7-5.1 [facility] Comment on above: Order Comment: Speci men Type: BLOOD SPECIMENOrdering Facility: [facility] Address: [address] [place] [address] Performed By: #### 2 4323-8 ####[facility] LABIA [id number] [place] [address] [place] Protein [Mass/Vol] 6.2 g/dL Low 6.3-8.0 [facility] Comment on above: Order Comment: Speci men Type: BLOOD SPECIMENOrdering Facility: [facility] Address: [address] Performed By: #### 2 4323-8 ####[facility] LABCLIA [id number] [place] [address] [place] Sodium [Moles/Vol] 131 mmol/L Low 136-144 [facility] Comment on above: Order Comment: Speci men Type: BLOOD SPECIMENOrdering Facility: [facility] Address: [address] [place] [address] Performed By: #### 2 4323-8 ####[facility] LABCLIA [id number] [place] [address] [place] Urea nitrogen [Mass/Vol] 51 mg/dL High 9-24 [facility] Comment on above: Order Comment: Speci men Type: BLOOD SPECIMENOrdering Facility: [facility] Address: [address] [place], [place] [address] Performed By: #### 2 4323-8 ####[facility] LABIA [id number] [place] [address] [place] CASE MANAGEMon 03-31-2023 CASE MANAGEM Normal [facility] CBC panel Auto (Bld)on 03-31 Erythrocyte distribution width (RBC) [Ratio] 20.6 % High 11.5-15.0 [facility] Comment on above: Order Comment: Speci men Type: BLOOD SPECIMENOrdering Facility: [facility] Address: [address] Performed By: #### 5 8410-2 ####[facility] LABCLIA [id number] [place] [address] [place] Hematocrit (Bld) [Volume fraction] 35.6 % Low 39.0-51.0 [facility] Comment on above: Order Comment: Speci men Type: BLOOD SPECIMENOrdering Facility: [facility] Address: [address] [place], [place] [address] Performed By: #### 5 8410-2 ####[facility] LABIA [id number] [place] [address] [place] Hemoglobin (Bld) [Mass/Vol] 11.1 g/dL Low 13.0-17.0 [facility] Comment on above: Order Comment: Speci men Type: BLOOD SPECIMENOrdering Facility: [facility] Address: [address] [place], [place] [address] Performed By: #### 5 8410-2 ####[facility] [id number] [place] [address] [place] MCH (RBC) [Entitic mass] 25.0 pg Low 26.0-34.0 [facility] Comment on above: Order Comment: Speci men Type: BLOOD SPECIMENOrdering Facility: [facility] Address: [address] [place], [place] [address] Performed By: #### 5 8410-2 ####[facility] [id number] [place] [address] [place] MCHC (RBC) [Mass/Vol] 31.2 g/dL Normal 30.5-36.0 [facility] Comment on above: Order Comment: Speci men Type: BLOOD SPECIMENOrdering Facility: [facility] Address: [address] [place], [place] [address] Performed By: #### 5 8410-2 ####[facility] [id number] [address] [place] MCV (RBC) [Entitic vol] 80.2 fL Normal 80.0-100.0 [facility] Comment on above: Order Comment: Speci men Type: BLOOD SPECIMENOrdering Facility: [facility] Address: [address] [place], [place] [address] Performed By: #### 5 8410-2 ####[facility] [id number] [place] [address] [place] Nucleated RBC (Bld) [#/Vol] 0.03 10*3/uL High <0.01 [facility] Comment on above: Order Comment: Speci men Type: BLOOD SPECIMENOrdering Facility: [facility] Address: [address] [place] [address] Performed By: #### 5 8410-2 ####[facility] LABIA [id number] [place] [address] [place] Platelet mean volume (Bld) [Entitic vol] 9.7 fL Normal 9.0-12.7 [facility] Comment on above: Order Comment: Speci men Type: BLOOD SPECIMENOrdering Facility: [facility] Address: [address] [place] [address] Performed By: #### 5 8410-2 ####[facility] LABIA [id number] [place] [address] [place] Platelets (Bld) [#/Vol] 251 10*3/uL Normal 150-400 [facility] Comment on above: Order Comment: Speci men Type: BLOOD SPECIMENOrdering Facility: [facility] Address: [address] [place] [address] Performed By: #### 5 8410-2 ####[facility] LABIA [id number] [place] [address] [place] RBC (Bld) [#/Vol] 4.44 10*6/uL Normal 4.20-6.00 [facility] Comment on above: Order Comment: Speci men Type: BLOOD SPECIMENOrdering Facility: [facility] Address: [address] [place], [place] [address] Performed By: #### 5 8410-2 ####[facility] LABCLIA [id number] [place] [address] [place] WBC (Bld) [#/Vol] 7.47 10*3/uL Normal 3.70-11.00 [facility] Comment on above: Order Comment: Speci men Type: BLOOD SPECIMENOrdering Facility: [facility] Address: [address] [place] [address] Performed By: #### 5 8410-2 ####[facility] LABCLIA [id number] [place] [address] [place] CONSULT PROGon 03-31-2023 CONSULT PROG Normal [facility] Comprehensive metabolic 2000 panelon 03-31-2023 Albumin [Mass/Vol] 3.5 g/dL Low 3.9-4.9 [facility] Comment on above: Order Comment: Speci men Type: BLOOD SPECIMENOrdering Facility: [facility] Address: [address] [place] [address] Performed By: #### 2 4323-8 ####[facility] LABCLIA [id number] [place] [address] [place] ALP [Catalytic activity/Vol] 139 U/L High 38-113 [facility] Comment on above: Order Comment: Speci men Type: BLOOD SPECIMENOrdering Facility: [facility] Address: [address] [place] [address] Performed By: #### 2 4323-8 ####[facility] LABCLIA [id number] [place] [address] [place] ALT [Catalytic activity/Vol] 20 U/L Normal 10-54 [facility] Comment on above: Order Comment: Speci men Type: BLOOD SPECIMENOrdering Facility: [facility] Address: [address] [place], [place] [address] Performed By: #### 2 4323-8 ####[facility] LABCLIA [id number] [place] [address] [place] Anion gap [Moles/Vol] 12 mmol/L Normal 9-18 [facility] Comment on above: Order Comment: Speci men Type: BLOOD SPECIMENOrdering Facility: [facility] Address: [address] Performed By: #### 2 4323-8 ####[facility] LABCLIA [id number] [place] [address] [place] AST [Catalytic activity/Vol] 16 U/L Normal 14-40 [facility] Comment on above: Order Comment: Speci men Type: BLOOD SPECIMENOrdering Facility: [facility] Address: [address] Performed By: #### 2 4323-8 ####[facility] LABCLIA [id number] [place] [address] [place] Bilirubin [Mass/Vol] 2.0 mg/dL High 0.2-1.3 [facility] Comment on above: Order Comment: Speci men Type: BLOOD SPECIMENOrdering Facility: [facility] Address: [address] Performed By: #### 2 4323-8 ####[facility] LABCLIA [id number] [place] [address] [place] Calcium [Mass/Vol] 9.3 mg/dL Normal 8.5-10.2 [facility] Comment on above: Order Comment: Speci men Type: BLOOD SPECIMENOrdering Facility: [facility] Address: [address] Performed By: #### 2 4323-8 ####[facility] LABCLIA [id number] [place] [address] [place] Chloride [Moles/Vol] 96 mmol/L Low 97-105 [facility] Comment on above: Order Comment: Speci men Type: BLOOD SPECIMENOrdering Facility: [facility] Address: [address] Performed By: #### 2 4323-8 ####[facility] LABCLIA [id number] [place] [address] [place] CO2 [Moles/Vol] 24 mmol/L Normal 22-30 [facility] Comment on above: Order Comment: Speci men Type: BLOOD SPECIMENOrdering Facility: [facility] Address: [address] [place] [address] Performed By: #### 2 4323-8 ####[facility] LABCLIA [id number] [place] [address] [place] Creatinine [Mass/Vol] 2.17 mg/dL High 0.73-1.22 [facility] Comment on above: Order Comment: Speci men Type: BLOOD SPECIMENOrdering Facility: [facility] Address: [address] [place] [address] Performed By: #### 2 4323-8 ####[facility] LABIA [id number] [address] Creatinine and Glomerular filtration rate.predicted panel (S/P/Bld) 33 mL/min/1.73m??? Low >=60 [facility] Comment on above: Order Comment: Speci men Type: BLOOD SPECIMENOrdering Facility: [facility] Address: [address] [place] [address] Result Comment: Syl mated Glomerular Filtration Rate (eGFR) is calculated using the 2020 CKD-EPI creatinine equation. This equation utilizes serum creatinine, sex, and age as parameters. The creatinine assay has traceable calibration to isotope dilution-mass spectrometry. Refer to KDIGO guidelines for clinical interpretation. In patients with unstable renal function, e.g. those with acute kidney injury, the eGFR may not accurately reflect actual GFR. Performed By: #### 2 4323-8 ####[facility] LABCLIA [id number] [place] [address] [place] Glucose [Mass/Vol] 186 mg/dL High 74-99 [facility] Comment on above: Order Comment: Speci men Type: BLOOD SPECIMENOrdering Facility: [facility] Address: [address] [place], [place] [address] Result Comment: The [place] [employer] (ADA) provides guidance for cutoff values for fasting glucose and random glucose. The ADA defines fasting as no caloric intake for at least 8 hours. Fasting plasma glucose results between 100 to 125 mg/dL indicate increased risk for diabetes (prediabetes).Fasting plasma glucose results greater than or equal to 126 mg/dL meet the criteria for diagnosis of diabetes. In the absence of unequivocal hyperglycemia, results should be confirmed by repeat testing. In a patient with classic symptoms of hyperglycemia or hyperglycemic crisis, random plasma glucose results greater than or equal to 200 mg/dL meet the criteria for diagnosis of diabetes.Reference: Standards of Medical Care in Diabetes 2016, [place] [employer]. Diabetes Care. 2016.39(Suppl 1). Performed By: #### 2 4323-8 ####[facility] LABIA [id number] [place] [address] [place] Potassium [Moles/Vol] 4.4 mmol/L Normal 3.7-5.1 [facility] Comment on above: Order Comment: Speci men Type: BLOOD SPECIMENOrdering Facility: [facility] Address: [address] [place] [address] Performed By: #### 2 4323-8 ####[facility] [id number] [place] [address] [place] Protein [Mass/Vol] 6.3 g/dL Normal 6.3-8.0 [facility] Comment on above: Order Comment: Speci men Type: BLOOD SPECIMENOrdering Facility: [facility] Address: [address] Performed By: #### 2 4323-8 ####[facility] LABIA [id number] [place] [address] [place] Sodium [Moles/Vol] 132 mmol/L Low 136-144 [facility] Comment on above: Order Comment: Speci men Type: BLOOD SPECIMENOrdering Facility: [facility] Address: [address] Performed By: #### 2 4323-8 ####[facility] LABCLIA [id number] [place] [address] [place] Urea nitrogen [Mass/Vol] 50 mg/dL High 9- [facility] Comment on above: Order Comment: Speci men Type: BLOOD SPECIMENOrdering Facility: [facility] Address: [address] [place] [address] Performed By: #### 2 4323-8 ####[facility] LABCLIA [id number] [place] [address] [place] ECG COMPLETEon 03-31-2023 ECG COMPLETE Normal [facility] PT EDon 03-31-2023 PT ED Normal [facility] SURGICAL PATHOLOGYon 023 CASE REPORT Normal [facility] Comment on above: Order Comment: Speci men Type: DEVICE SPECIMENOrdering Facility: [facility] Address: [address] [place] [address] Result Comment: [facility] Pathology Report Case: [id number] Provider: Chandni Vitale MD Collected: 03/31/2023 03:43 PMOrdering Location: [facility] Received: 03/31/2023 06:17 PMPathologist: Nichol Best MDSpecimen: HARDWARE, ICD Performed By: #### S ####[facility] LABCLIA [id number] [place] [address] [place] CLINICAL HISTORY Normal [facility] Comment on above: Order Comment: Speci men Type: DEVICE SPECIMENOrdering Facility: [facility] Address: [address] [place] [address] Result Comment: Pre- op diagnosis:Acute decompensated heart failure (HCC) [I50.9]Ischemic cardiomyopathy [I25.5] Performed By: #### S ####[facility] LABCLIA [id number] [address] [place] FINAL DIAGNOSIS Normal [facility] Comment on above: Order Comment: Speci men Type: DEVICE SPECIMENOrdering Facility: [facility] Address: [address] [place] [address] Result Comment: A. I mplantable cardioverter defibrillator, removal:- Pulse generator (gross examination only).CT/TLA 04/03/2023 Performed By: #### S ####[facility] LABCLIA [id number] [address] FINAL PERFORMING LAB Normal [facility] Comment on above: Order Comment: Speci men Type: DEVICE SPECIMENOrdering Facility: [facility] Address: [address] [place] [address] Result Comment: Diag nostic interpretation performed at [facility], [address] [place] [address] CLIA# [id number] Director: Jarrod Izquierdo M.D. Performed By: #### S ####[facility] LABIA [id number] [address] OF [place] GROSS DESCRIPTION A. HARDWARE Normal [facility] Comment on above: Order Comment: Speci men Type: DEVICE SPECIMENOrdering Facility: [facility] Address: [address] [place] [address] Result Comment: Rece ived in formalin labeled with hardware, ICD is a grossly unremarkable pulse generator battery measuring 7.0 x 5.5 x 1.1 cm. There are no defects present. Inscribed on the device is [employer] Dynagen ICD model D150 type VVIR SN [id number] . There is no attached soft tissue present. No sections are submitted. The specimen is reviewed with Dr. Best.TLA April 03, 2023 12:57 PMGross examination performed at [facility], [facility] [place] [address] Performed By: #### S ####[facility] LABIA [id number] [address] [place] CBC panel Auto (Bld)on 03-30 Erythrocyte distribution width (RBC) [Ratio] 20.5 % High 11.5-15.0 [facility] Comment on above: Order Comment: Speci men Type: BLOOD SPECIMENOrdering Facility: [facility] Address: [address] [place] [address] Performed By: #### 5 8410-2 ####[facility] LABIA [id number] [address] Hematocrit (Bld) [Volume fraction] 35.3 % Low 39.0-51.0 [facility] Comment on above: Order Comment: Speci men Type: BLOOD SPECIMENOrdering Facility: [facility] Address: [address] [place] [address] Performed By: #### 5 8410-2 ####[facility] LABIA [id number] [address] Hemoglobin (Bld) [Mass/Vol] 11.0 g/dL Low 13.0-17.0 [facility] Comment on above: Order Comment: Speci men Type: BLOOD SPECIMENOrdering Facility: [facility] Address: [address] [place] [address] Performed By: #### 5 8410-2 ####[facility] LABIA [id number] [place] [address] [place] MCH (RBC) [Entitic mass] 24.8 pg Low 26.0-34.0 [facility] Comment on above: Order Comment: Speci men Type: BLOOD SPECIMENOrdering Facility: [facility] Address: [address] [place] [address] Performed By: #### 5 8410-2 ####[facility] LABIA [id number] [address] [place] MCHC (RBC) [Mass/Vol] 31.2 g/dL Normal 30.5-36.0 [facility] Comment on above: Order Comment: Speci men Type: BLOOD SPECIMENOrdering Facility: [facility] Address: [address] [place], [place] [address] Performed By: #### 5 8410-2 ####[facility] LABIA [id number] [address] [place] MCV (RBC) [Entitic vol] 79.5 fL Low 80.0-100.0 [facility] Comment on above: Order Comment: Speci men Type: BLOOD SPECIMENOrdering Facility: [facility] Address: [address] [place], [place] [address] Performed By: #### 5 8410-2 ####[facility] LABIA [id number] [place] [address] [place] Nucleated RBC (Bld) [#/Vol] 0.02 10*3/uL High <0.01 [facility] Comment on above: Order Comment: Speci men Type: BLOOD SPECIMENOrdering Facility: [facility] Address: [address] [place], [place] [address] Performed By: #### 5 8410-2 ####[facility] LABIA [id number] [address] [place] Platelet mean volume (Bld) [Entitic vol] 9.6 fL Normal 9.0-12.7 [facility] Comment on above: Order Comment: Speci men Type: BLOOD SPECIMENOrdering Facility: [facility] Address: [address] [place], [place] [address] Performed By: #### 5 8410-2 ####[facility] LABIA [id number] [place] [address] [place] Platelets (Bld) [#/Vol] 243 10*3/uL Normal 150-400 [facility] Comment on above: Order Comment: Speci men Type: BLOOD SPECIMENOrdering Facility: [facility] Address: [address] [place] [address] Performed By: #### 5 8410-2 ####[facility] LABIA [id number] [place] [address] [place] RBC (Bld) [#/Vol] 4.44 10*6/uL Normal 4.20-6.00 [facility] Comment on above: Order Comment: Speci men Type: BLOOD SPECIMENOrdering Facility: [facility] Address: [address] [place] [address] Performed By: #### 5 8410-2 ####[facility] [id number] [place] [address] [place] WBC (Bld) [#/Vol] 7.93 10*3/uL Normal 3.70-11.00 [facility] Comment on above: Order Comment: Speci men Type: BLOOD SPECIMENOrdering Facility: [facility] Address: [address] [place] [address] Performed By: #### 5 8410-2 ####[facility] [id number] [place] [address] [place] CONSULTon 03-30-2023 CONSULT Normal [facility] CONSULT PROGon 03-30-2023 CONSULT PROG Normal [facility] Comprehensive metabolic 2000 panelon 03-30-2023 Albumin [Mass/Vol] 3.5 g/dL Low 3.9-4.9 [facility] Comment on above: Order Comment: Speci men Type: BLOOD SPECIMENOrdering Facility: [facility] Address: [address] [place], [place] [address] Performed By: #### 2 4323-8 ####[facility] LABIA [id number] [place] [address] [place] ALP [Catalytic activity/Vol] 137 U/L High 38-113 [facility] Comment on above: Order Comment: Speci men Type: BLOOD SPECIMENOrdering Facility: [facility] Address: [address] Performed By: #### 2 4323-8 ####[facility] LABCLIA [id number] [address] [place] ALT [Catalytic activity/Vol] 23 U/L Normal 10-54 [facility] Comment on above: Order Comment: Speci men Type: BLOOD SPECIMENOrdering Facility: [facility] Address: [address] Performed By: #### 2 4323-8 ####[facility] LABCLIA [id number] [place] [address] [place] Anion gap [Moles/Vol] 14 mmol/L Normal 9-18 [facility] Comment on above: Order Comment: Speci men Type: BLOOD SPECIMENOrdering Facility: [facility] Address: [address] Performed By: #### 2 4323-8 ####[facility] LABCLIA [id number] [address] [place] AST [Catalytic activity/Vol] 24 U/L Normal 14-40 [facility] Comment on above: Order Comment: Speci men Type: BLOOD SPECIMENOrdering Facility: [facility] Address: [address] Performed By: #### 2 4323-8 ####[facility] LABCLIA [id number] [place] [address] [place] Bilirubin [Mass/Vol] 1.6 mg/dL High 0.2-1.3 [facility] Comment on above: Order Comment: Speci men Type: BLOOD SPECIMENOrdering Facility: [facility] Address: [address] Performed By: #### 2 4323-8 ####[facility] LABCLIA [id number] [place] [address] [place] Calcium [Mass/Vol] 9.5 mg/dL Normal 8.5-10.2 [facility] Comment on above: Order Comment: Speci men Type: BLOOD SPECIMENOrdering Facility: [facility] Address: [address] [place] [address] Performed By: #### 2 4323-8 ####[facility] LABCLIA [id number] [place] [address] [place] Chloride [Moles/Vol] 95 mmol/L Low 97-105 [facility] Comment on above: Order Comment: Speci men Type: BLOOD SPECIMENOrdering Facility: [facility] Address: [address] [place] [address] Performed By: #### 2 4323-8 ####[facility] LABCLIA [id number] [place] [address] [place] CO2 [Moles/Vol] 23 mmol/L Normal 22-30 [facility] Comment on above: Order Comment: Speci men Type: BLOOD SPECIMENOrdering Facility: [facility] Address: [address] [place] [address] Performed By: #### 2 4323-8 ####[facility] LABCLIA [id number] [place] [address] [place] Creatinine [Mass/Vol] 2.12 mg/dL High 0.73-1.22 [facility] Comment on above: Order Comment: Speci men Type: BLOOD SPECIMENOrdering Facility: [facility] Address: [address] [place] [address] Performed By: #### 2 4323-8 ####[facility] LABCLIA [id number] [place] [address] [place] Creatinine and Glomerular filtration rate.predicted panel (S/P/Bld) 34 mL/min/1.73m??? Low >=60 [facility] Comment on above: Order Comment: Speci men Type: BLOOD SPECIMENOrdering Facility: [facility] Address: [address] [id number] Result Comment: Syl mated Glomerular Filtration Rate (eGFR) is calculated using the 2020 CKD-EPI creatinine equation. This equation utilizes serum creatinine, sex, and age as parameters. The creatinine assay has traceable calibration to isotope dilution-mass spectrometry. Refer to KDIGO guidelines for clinical interpretation. In patients with unstable renal function, e.g. those with acute kidney injury, the eGFR may not accurately reflect actual GFR. Performed By: #### 2 4323-8 ####[facility] LABCLIA [id number] [place] [address] [place] Glucose [Mass/Vol] 145 mg/dL High 74-99 [facility] Comment on above: Order Comment: Joseline clemons Type: BLOOD SPECIMENOrdering Facility: [facility] Address: [address] [address] Result Comment: The [place] [employer] (ADA) provides guidance for cutoff values for fasting glucose and random glucose. The ADA defines fasting as no caloric intake for at least 8 hours. Fasting plasma glucose results between 100 to 125 mg/dL indicate increased risk for diabetes (prediabetes).Fasting plasma glucose results greater than or equal to 126 mg/dL meet the criteria for diagnosis of diabetes. In the absence of unequivocal hyperglycemia, results should be confirmed by repeat testing. In a patient with classic symptoms of hyperglycemia or hyperglycemic crisis, random plasma glucose results greater than or equal to 200 mg/dL meet the criteria for diagnosis of diabetes.Reference: Standards of Medical Care in Diabetes 2016, [place] [employer]. Diabetes Care. 2016.39(Suppl 1). Performed By: #### 2 4323-8 ####[facility] LABIA [id number] [place] [address] [place] Potassium [Moles/Vol] 4.5 mmol/L Normal 3.7-5.1 [facility] Comment on above: Order Comment: Joseline [facility] Type: BLOOD SPECIMENOrdering Facility: [facility] Address: [address] [id number] Performed By: #### 2 4323-8 ####[facility] LABCLIA [id number] [place] [address] [place] Protein [Mass/Vol] 6.5 g/dL Normal 6.3-8.0 [facility] Comment on above: Order Comment: Speci men Type: BLOOD SPECIMENOrdering Facility: [facility] Address: [address] [place] [address] Performed By: #### 2 4323-8 ####[facility] LABCLIA [id number] [place] [address] [place] Sodium [Moles/Vol] 132 mmol/L Low 136-144 [facility] Comment on above: Order Comment: Speci men Type: BLOOD SPECIMENOrdering Facility: [facility] Address: [address] [place] [address] Performed By: #### 2 4323-8 ####[facility] LABCLIA [id number] [place] [address] [place] Urea nitrogen [Mass/Vol] 54 mg/dL High 9-24 [facility] Comment on above: Order Comment: Speci men Type: BLOOD SPECIMENOrdering Facility: [facility] Address: [address] [place] [address] Performed By: #### 2 4323-8 ####[facility] LABCLIA [id number] [place] [address] [place] NUTRITIONon 03-30-2023 NUTRITION Normal [facility] TYPE + SCREENon 03-30-2023 ABO A Normal [facility] Comment on above: Order Comment: Speci men Type: BLOOD SPECIMENOrdering Facility: [facility] Address: [address] [place] [address] Performed By: #### T SCR ####[facility] BLOOD BANKCLIA [id number] [place] [address] [place] HISTORICAL AB SCR STATUS Negative Normal [facility] Comment on above: Order Comment: Speci men Type: BLOOD SPECIMENOrdering Facility: [facility] Address: [address] Performed By: #### T SCR ####[facility] BLOOD BANKCLIA [id number] [address] Rh Nom (Bld) Positive Normal [facility] Comment on above: Order Comment: Speci men Type: BLOOD SPECIMENOrdering Facility: [facility] Address: [address] [address] Performed By: #### T SCR ####[facility] BLOOD BANKCLIA [id number] [address] OF [facility] TYPE AND SCREEN EXPIRATION 04/02/2023 23:59 Normal [facility] Comment on above: Order Comment: Speci men Type: BLOOD SPECIMENOrdering Facility: [facility] Address: [address] [place], [place] [address] Performed By: #### T SCR ####[facility] BLOOD BANKCLIA [id number] [address] [place] CASE MANAGEMon 03-29-2023 CASE MANAGEM Normal [facility] CBC panel Auto (Bld)on 03-29 Erythrocyte distribution width (RBC) [Ratio] 21.1 % High 11.5-15.0 [facility] Comment on above: Order Comment: Speci men Type: BLOOD SPECIMENOrdering Facility: [facility] Address: [address] Performed By: #### 5 8410-2 ####[facility] LABCLIA [id number] [address] Hematocrit (Bld) [Volume fraction] 36.8 % Low 39.0-51.0 [facility] Comment on above: Order Comment: Speci men Type: BLOOD SPECIMENOrdering Facility: [facility] Address: [address] [place], [place] [address] Performed By: #### 5 8410-2 ####[facility] LABIA [id number] [place] [address] [place] Hemoglobin (Bld) [Mass/Vol] 11.4 g/dL Low 13.0-17.0 [facility] Comment on above: Order Comment: Speci men Type: BLOOD SPECIMENOrdering Facility: [facility] Address: [address] [place], [place] [address] Performed By: #### 5 8410-2 ####[facility] LAB[facility] [id number] [place] [address] [place] MCH (RBC) [Entitic mass] 25.1 pg Low 26.0-34.0 [facility] Comment on above: Order Comment: Speci men Type: BLOOD SPECIMENOrdering Facility: [facility] Address: [address] [place], [place] [address] Performed By: #### 5 8410-2 ####[facility] [id number] [address] [place] MCHC (RBC) [Mass/Vol] 31.0 g/dL Normal 30.5-36.0 [facility] Comment on above: Order Comment: Speci men Type: BLOOD SPECIMENOrdering Facility: [facility] Address: [address] [place], [place] [address] Performed By: #### 5 8410-2 ####[facility] LABIA [id number] [address] [place] MCV (RBC) [Entitic vol] 80.9 fL Normal 80.0-100.0 [facility] Comment on above: Order Comment: Speci men Type: BLOOD SPECIMENOrdering Facility: [facility] Address: [address] [place], [place] [address] Performed By: #### 5 8410-2 ####[facility] LABIA [id number] [place] [address] [place] Nucleated RBC (Bld) [#/Vol] 0.02 10*3/uL High <0.01 [facility] Comment on above: Order Comment: Speci men Type: BLOOD SPECIMENOrdering Facility: [facility] Address: [address] [place] [address] Performed By: #### 5 8410-2 ####[facility] LABIA [id number] [place] [address] [place] Platelet mean volume (Bld) [Entitic vol] 9.8 fL Normal 9.0-12.7 [facility] Comment on above: Order Comment: Speci men Type: BLOOD SPECIMENOrdering Facility: [facility] Address: [address] [place] [address] Performed By: #### 5 8410-2 ####[facility] LABIA [id number] [place] [address] [place] Platelets (Bld) [#/Vol] 231 10*3/uL Normal 150-400 [facility] Comment on above: Order Comment: Speci men Type: BLOOD SPECIMENOrdering Facility: [facility] Address: [address] [place] [address] Performed By: #### 5 8410-2 ####[facility] LABIA [id number] [place] [address] [place] RBC (Bld) [#/Vol] 4.55 10*6/uL Normal 4.20-6.00 [facility] Comment on above: Order Comment: Speci men Type: BLOOD SPECIMENOrdering Facility: [facility] Address: [address] [place], [place] [address] Performed By: #### 5 8410-2 ####[facility] LABCLIA [id number] [place] [address] [place] WBC (Bld) [#/Vol] 8.72 10*3/uL Normal 3.70-11.00 [facility] Comment on above: Order Comment: Speci men Type: BLOOD SPECIMENOrdering Facility: [facility] Address: [address] [place] [address] Performed By: #### 5 8410-2 ####[facility] LABCLIA [id number] [place] [address] [place] CONSULT PROGon 03-29-2023 CONSULT PROG Normal [facility] Comprehensive metabolic 2000 panelon 03-29-2023 Albumin [Mass/Vol] 3.5 g/dL Low 3.9-4.9 [facility] Comment on above: Order Comment: Speci men Type: BLOOD SPECIMENOrdering Facility: [facility] Address: [address] [place] [address] Performed By: #### 2 4323-8 ####[facility] LABCLIA [id number] [place] [address] [place] ALP [Catalytic activity/Vol] 145 U/L High 38-113 [facility] Comment on above: Order Comment: Speci men Type: BLOOD SPECIMENOrdering Facility: [facility] Address: [address] [place] [address] Performed By: #### 2 4323-8 ####[facility] LABCLIA [id number] [place] [address] [place] ALT [Catalytic activity/Vol] 31 U/L Normal 10-54 [facility] Comment on above: Order Comment: Speci men Type: BLOOD SPECIMENOrdering Facility: [facility] Address: [address] [place], [place] [address] Performed By: #### 2 4323-8 ####[facility] LABCLIA [id number] [place] [address] [place] Anion gap [Moles/Vol] 16 mmol/L Normal 9-18 [facility] Comment on above: Order Comment: Speci men Type: BLOOD SPECIMENOrdering Facility: [facility] Address: [address] Performed By: #### 2 4323-8 ####[facility] LABCLIA [id number] [place] [address] [place] AST [Catalytic activity/Vol] 24 U/L Normal 14-40 [facility] Comment on above: Order Comment: Speci men Type: BLOOD SPECIMENOrdering Facility: [facility] Address: [address] [place], [place] [address] Performed By: #### 2 4323-8 ####[facility] LABCLIA [id number] [place] [address] [place] Bilirubin [Mass/Vol] 1.8 mg/dL High 0.2-1.3 [facility] Comment on above: Order Comment: Speci men Type: BLOOD SPECIMENOrdering Facility: [facility] Address: [address] Performed By: #### 2 4323-8 ####[facility] LABCLIA [id number] [place] [address] [place] Calcium [Mass/Vol] 9.3 mg/dL Normal 8.5-10.2 [facility] Comment on above: Order Comment: Speci men Type: BLOOD SPECIMENOrdering Facility: [facility] Address: [address] Performed By: #### 2 4323-8 ####[facility] LABCLIA [id number] [place] [address] [place] Chloride [Moles/Vol] 95 mmol/L Low 97-105 [facility] Comment on above: Order Comment: Speci men Type: BLOOD SPECIMENOrdering Facility: [facility] Address: [address] [place], [place] [address] Performed By: #### 2 4323-8 ####[facility] LABCLIA [id number] [place] [address] [place] CO2 [Moles/Vol] 21 mmol/L Low 22-30 [facility] Comment on above: Order Comment: Speci men Type: BLOOD SPECIMENOrdering Facility: [facility] Address: [address] [address] Performed By: #### 2 4323-8 ####[facility] LABCLIA [id number] [place] [address] [place] Creatinine [Mass/Vol] 2.15 mg/dL High 0.73-1.22 [facility] Comment on above: Order Comment: Speci men Type: BLOOD SPECIMENOrdering Facility: [facility] Address: [address] [place] [address] Performed By: #### 2 4323-8 ####[facility] LABIA [id number] [address] Creatinine and Glomerular filtration rate.predicted panel (S/P/Bld) 33 mL/min/1.73m??? Low >=60 [facility] Comment on above: Order Comment: Speci men Type: BLOOD SPECIMENOrdering Facility: [facility] Address: [address] [place] [address] Result Comment: Syl mated Glomerular Filtration Rate (eGFR) is calculated using the 2020 CKD-EPI creatinine equation. This equation utilizes serum creatinine, sex, and age as parameters. The creatinine assay has traceable calibration to isotope dilution-mass spectrometry. Refer to KDIGO guidelines for clinical interpretation. In patients with unstable renal function, e.g. those with acute kidney injury, the eGFR may not accurately reflect actual GFR. Performed By: #### 2 4323-8 ####[facility] LABCLIA [id number] [address] [place] Glucose [Mass/Vol] 212 mg/dL High 74-99 [facility] Comment on above: Order Comment: Speci men Type: BLOOD SPECIMENOrdering Facility: [facility] Address: [address] [place] [address] Result Comment: The [place] [employer] (ADA) provides guidance for cutoff values for fasting glucose and random glucose. The ADA defines fasting as no caloric intake for at least 8 hours. Fasting plasma glucose results between 100 to 125 mg/dL indicate increased risk for diabetes (prediabetes).Fasting plasma glucose results greater than or equal to 126 mg/dL meet the criteria for diagnosis of diabetes. In the absence of unequivocal hyperglycemia, results should be confirmed by repeat testing. In a patient with classic symptoms of hyperglycemia or hyperglycemic crisis, random plasma glucose results greater than or equal to 200 mg/dL meet the criteria for diagnosis of diabetes.Reference: Standards of Medical Care in Diabetes 2016, [place] [employer]. Diabetes Care. 2016.39(Suppl 1). Performed By: #### 2 4323-8 ####[facility] LABIA [id number] [place] [address] [place] Potassium [Moles/Vol] 4.4 mmol/L Normal 3.7-5.1 [facility] Comment on above: Order Comment: Speci men Type: BLOOD SPECIMENOrdering Facility: [facility] Address: [address] [address] Performed By: #### 2 4323-8 ####[facility] [id number] [place] [address] [place] Protein [Mass/Vol] 6.4 g/dL Normal 6.3-8.0 [facility] Comment on above: Order Comment: Speci men Type: BLOOD SPECIMENOrdering Facility: [facility] Address: [address] [place] [address] Performed By: #### 2 4323-8 ####[facility] LABIA [id number] [place] [address] [place] Sodium [Moles/Vol] 132 mmol/L Low 136-144 [facility] Comment on above: Order Comment: Speci men Type: BLOOD SPECIMENOrdering Facility: [facility] Address: [address] [place] [address] Performed By: #### 2 4323-8 ####[facility] LABIA [id number] [address] [place] Urea nitrogen [Mass/Vol] 62 mg/dL High 9-24 [facility] Comment on above: Order Comment: Joseline clemons Type: BLOOD SPECIMENOrdering Facility: [facility] Address: [address] [place] [address] Performed By: #### 2 4323-8 ####[facility] LABIA [id number] [place] [address] [place] Fact Xa PPP-aCncon Coagulation factor X activated act Coag Qn (PPP) 0.20 IU/mL High <0.10 [facility] Comment on above: Order Comment: Joseline clemons Type: BLOOD SPECIMENOrdering Facility: [facility] Address: [address] [place] [address] Result Comment: The recommended therapeutic range for treatment of venous and arterial thrombosis with intravenous unfractionated heparin is an anti Xa activity level of 0.3 to 0.7 IU/mL. In patients with concomitant therapy with thrombolytic agents and/or platelet glycoprotein IIb/IIIa antagonists, the recommended therapeutic range is an anti Xa activity level of 0.2 to 0.5 IU/mL. Performed By: #### 3 217-7 ####[facility] [id number] [address] [place] Coagulation factor X activated act Coag Qn (PPP) 0.14 IU/mL High <0.10 [facility] Comment on above: Order Comment: Joseline clemons Type: BLOOD SPECIMENOrdering Facility: [facility] Address: [address] [place] [address] Result Comment: The recommended therapeutic range for treatment of venous and arterial thrombosis with intravenous unfractionated heparin is an anti Xa activity level of 0.3 to 0.7 IU/mL. In patients with concomitant therapy with thrombolytic agents and/or platelet glycoprotein IIb/IIIa antagonists, the recommended therapeutic range is an anti Xa activity level of 0.2 to 0.5 IU/mL. Performed By: #### 3 217-7 ####[facility] LABIA [id number] [place] [address] [place] PTT, ANTICOAGULANT THERAPYon 03-29-2023 aPTT Coag (PPP) [Time] 61.0 s High 23.0-32.4 [facility] Comment on above: Order Comment: Speci men Type: BLOOD SPECIMENOrdering Facility: [facility] Address: [address] [place] [address] Performed By: #### P TTAC ####[facility] [id number] [address] [place] aPTT Coag (PPP) [Time] 32.9 s High 23.0-32.4 [facility] Comment on above: Order Comment: Speci men Type: BLOOD SPECIMENOrdering Facility: [facility] Address: [address] [place] [address] Performed By: #### P TTAC, 99225-0 ####[facility] [id number] [address] [place] aPTT Coag (PPP) [Time] 123.5 s High 23.0-32.4 [facility] Comment on above: Order Comment: Speci men Type: BLOOD SPECIMENOrdering Facility: [facility] Address: [address] [place] [address] Result Comment: Samp le checked for clot. Result rechecked. Performed By: #### P TTAC ####[facility] [id number] [address] OF [facility] aPTT Coag (PPP) [Time] s High 23.0-32.4 [facility] Comment on above: Order Comment: Speci men Type: BLOOD SPECIMENOrdering Facility: [facility] Address: [address] [place] [address] Result Comment: Samp le checked for clot.Result rechecked. Performed By: #### P TTAC ####[facility] LABCLIA [id number] [place] [address] [place] Basic metabolic 2000 panelon 03-28-2023 Anion gap [Moles/Vol] 12 mmol/L Normal 9-18 [facility] Comment on above: Order Comment: Speci men Type: BLOOD SPECIMENOrdering Facility: [facility] Address: [address] Performed By: #### 2 4321-2 ####[facility] LABCLIA [id number] [place] [address] [place] Calcium [Mass/Vol] 9.6 mg/dL Normal 8.5-10.2 [facility] Comment on above: Order Comment: Speci men Type: BLOOD SPECIMENOrdering Facility: [facility] Address: [address] Performed By: #### 2 4321-2 ####[facility] LABCLIA [id number] [place] [address] [place] Chloride [Moles/Vol] 94 mmol/L Low 97-105 [facility] Comment on above: Order Comment: Speci men Type: BLOOD SPECIMENOrdering Facility: [facility] Address: [address] Performed By: #### 2 4321-2 ####[facility] LABCLIA [id number] [place] [address] [place] CO2 [Moles/Vol] 25 mmol/L Normal 22-30 [facility] Comment on above: Order Comment: Speci men Type: BLOOD SPECIMENOrdering Facility: [facility] Address: [address] Performed By: #### 2 4321-2 ####[facility] LABCLIA [id number] [address] OF [facility] Creatinine [Mass/Vol] 2.35 mg/dL High 0.73-1.22 [facility] Comment on above: Order Comment: Joseline clemons Type: BLOOD SPECIMENOrdering Facility: [facility] Address: [address] [address] Performed By: #### 2 4321-2 ####[facility] LABCLIA [id number] [address] Creatinine and Glomerular filtration rate.predicted panel (S/P/Bld) 30 mL/min/1.73m??? Low >=60 [facility] Comment on above: Order Comment: Joseline clemnos Type: BLOOD SPECIMENOrdering Facility: [facility] Address: [address] [place] [address] Result Comment: Syl mated Glomerular Filtration Rate (eGFR) is calculated using the 2020 CKD-EPI creatinine equation. This equation utilizes serum creatinine, sex, and age as parameters. The creatinine assay has traceable calibration to isotope dilution-mass spectrometry. Refer to KDIGO guidelines for clinical interpretation. In patients with unstable renal function, e.g. those with acute kidney injury, the eGFR may not accurately reflect actual GFR. Performed By: #### 2 4321-2 ####[facility] LABCLIA [id number] [address] STATES OF [facility] Glucose [Mass/Vol] 172 mg/dL High 74-99 [facility] Comment on above: Order Comment: Joseline clemons Type: BLOOD SPECIMENOrdering Facility: [facility] Address: [address] [place] [address] Result Comment: The [place] [employer] (ADA) provides guidance for cutoff values for fasting glucose and random glucose. The ADA defines fasting as no caloric intake for at least 8 hours. Fasting plasma glucose results between 100 to 125 mg/dL indicate increased risk for diabetes (prediabetes).Fasting plasma glucose results greater than or equal to 126 mg/dL meet the criteria for diagnosis of diabetes. In the absence of unequivocal hyperglycemia, results should be confirmed by repeat testing. In a patient with classic symptoms of hyperglycemia or hyperglycemic crisis, random plasma glucose results greater than or equal to 200 mg/dL meet the criteria for diagnosis of diabetes.Reference: Standards of Medical Care in Diabetes 2016, [place] [employer]. Diabetes Care. 2016.39(Suppl 1). Performed By: #### 2 4321-2 ####[facility] LABCLIA [id number] [place] [address] [place] Potassium [Moles/Vol] 4.2 mmol/L Normal 3.7-5.1 [facility] Comment on above: Order Comment: Speci men Type: BLOOD SPECIMENOrdering Facility: [facility] Address: [address] [place] [address] Performed By: #### 2 4321-2 ####[facility] LABIA [id number] [place] [address] [place] Sodium [Moles/Vol] 131 mmol/L Low 136-144 [facility] Comment on above: Order Comment: Speci men Type: BLOOD SPECIMENOrdering Facility: [facility] Address: [address] [address] Performed By: #### 2 4321-2 ####[facility] LABIA [id number] [place] [address] [place] Urea nitrogen [Mass/Vol] 62 mg/dL High 9-24 [facility] Comment on above: Order Comment: Speci men Type: BLOOD SPECIMENOrdering Facility: [facility] Address: [address] [address] Performed By: #### 2 4321-2 ####[facility] LABIA [id number] [place] [address] [place] CARD CATH DIAGNOSTICon 03-28 CARD CATH DIAGNOSTIC Normal [facility] CBC panel Auto (Bld)on 03-28 Erythrocyte distribution width (RBC) [Ratio] 20.6 % High 11.5-15.0 [facility] Comment on above: Order Comment: Speci men Type: BLOOD SPECIMENOrdering Facility: [facility] Address: [address] Performed By: #### 5 8410-2 ####[facility] LABIA [id number] [address] [place] Hematocrit (Bld) [Volume fraction] 35.9 % Low 39.0-51.0 [facility] Comment on above: Order Comment: Speci men Type: BLOOD SPECIMENOrdering Facility: [facility] Address: [address] Performed By: #### 5 8410-2 ####[facility] LABIA [id number] [place] [address] [place] Hemoglobin (Bld) [Mass/Vol] 11.1 g/dL Low 13.0-17.0 [facility] Comment on above: Order Comment: Speci men Type: BLOOD SPECIMENOrdering Facility: [facility] Address: [address] Performed By: #### 5 8410-2 ####[facility] LABIA [id number] [place] [address] [place] MCH (RBC) [Entitic mass] 24.7 pg Low 26.0-34.0 [facility] Comment on above: Order Comment: Speci men Type: BLOOD SPECIMENOrdering Facility: [facility] Address: [address] Performed By: #### 5 8410-2 ####[facility] LABIA [id number] [place] [address] [place] MCHC (RBC) [Mass/Vol] 30.9 g/dL Normal 30.5-36.0 [facility] Comment on above: Order Comment: Speci men Type: BLOOD SPECIMENOrdering Facility: [facility] Address: [address] Performed By: #### 5 8410-2 ####[facility] LABIA [id number] [place] [address] [place] MCV (RBC) [Entitic vol] 80.0 fL Normal 80.0-100.0 [facility] Comment on above: Order Comment: Speci men Type: BLOOD SPECIMENOrdering Facility: [facility] Address: [address] [place] [address] Performed By: #### 5 8410-2 ####[facility] LABIA [id number] [place] [address] [place] Nucleated RBC (Bld) [#/Vol] 10*3/uL Normal <0.01 [facility] Comment on above: Order Comment: Speci men Type: BLOOD SPECIMENOrdering Facility: [facility] Address: [address] [place] [address] Performed By: #### 5 8410-2 ####[facility] LABIA [id number] [place] [address] [place] Platelet mean volume (Bld) [Entitic vol] 9.4 fL Normal 9.0-12.7 [facility] Comment on above: Order Comment: Speci men Type: BLOOD SPECIMENOrdering Facility: [facility] Address: [address] [place], [place] [address] Performed By: #### 5 8410-2 ####[facility] LABIA [id number] [place] [address] [place] Platelets (Bld) [#/Vol] 224 10*3/uL Normal 150-400 [facility] Comment on above: Order Comment: Speci men Type: BLOOD SPECIMENOrdering Facility: [facility] Address: [address] [place], [place] [address] Performed By: #### 5 8410-2 ####[facility] LABIA [id number] [place] [address] [place] RBC (Bld) [#/Vol] 4.49 10*6/uL Normal 4.20-6.00 [facility] Comment on above: Order Comment: Speci men Type: BLOOD SPECIMENOrdering Facility: [facility] Address: [address] [place], [place] [address] Performed By: #### 5 8410-2 ####[facility] LABCLIA [id number] [place] [address] [place] WBC (Bld) [#/Vol] 7.95 10*3/uL Normal 3.70-11.00 [facility] Comment on above: Order Comment: Speci men Type: BLOOD SPECIMENOrdering Facility: [facility] Address: [address] [place], [place] [address] Performed By: #### 5 8410-2 ####[facility] LABCLIA [id number] [place] [address] [place] CONSULT PROGon 03-28-2023 CONSULT PROG Normal [facility] Comprehensive metabolic 2000 panelon 03-28-2023 Albumin [Mass/Vol] 3.3 g/dL Low 3.9-4.9 [facility] Comment on above: Order Comment: Speci men Type: BLOOD SPECIMENOrdering Facility: [facility] Address: [address] [place], [place] [address] Performed By: #### 2 4323-8 ####[facility] LABCLIA [id number] [place] [address] [place] ALP [Catalytic activity/Vol] 139 U/L High 38-113 [facility] Comment on above: Order Comment: Speci men Type: BLOOD SPECIMENOrdering Facility: [facility] Address: [address] [place], [place] [address] Performed By: #### 2 4323-8 ####[facility] LABCLIA [id number] [place] [address] [place] ALT [Catalytic activity/Vol] 29 U/L Normal 10-54 [facility] Comment on above: Order Comment: Speci men Type: BLOOD SPECIMENOrdering Facility: [facility] Address: [address] Performed By: #### 2 4323-8 ####[facility] LABCLIA [id number] [place] [address] [place] Anion gap [Moles/Vol] 12 mmol/L Normal 9-18 [facility] Comment on above: Order Comment: Speci men Type: BLOOD SPECIMENOrdering Facility: [facility] Address: [address] [address] Performed By: #### 2 4323-8 ####[facility] LABCLIA [id number] [place] [address] [place] AST [Catalytic activity/Vol] 24 U/L Normal 14-40 [facility] Comment on above: Order Comment: Speci men Type: BLOOD SPECIMENOrdering Facility: [facility] Address: [address] Performed By: #### 2 4323-8 ####[facility] LABCLIA [id number] [place] [address] [place] Bilirubin [Mass/Vol] 2.1 mg/dL High 0.2-1.3 [facility] Comment on above: Order Comment: Speci men Type: BLOOD SPECIMENOrdering Facility: [facility] Address: [address] Performed By: #### 2 4323-8 ####[facility] LABCLIA [id number] [place] [address] [place] Calcium [Mass/Vol] 9.2 mg/dL Normal 8.5-10.2 [facility] Comment on above: Order Comment: Speci men Type: BLOOD SPECIMENOrdering Facility: [facility] Address: [address] Performed By: #### 2 4323-8 ####[facility] LABCLIA [id number] [place] [address] [place] Chloride [Moles/Vol] 93 mmol/L Low 97-105 [facility] Comment on above: Order Comment: Speci men Type: BLOOD SPECIMENOrdering Facility: [facility] Address: [address] [place] [address] Performed By: #### 2 4323-8 ####[facility] LABIA [id number] [place] [address] [place] CO2 [Moles/Vol] 24 mmol/L Normal 22-30 [facility] Comment on above: Order Comment: Speci men Type: BLOOD SPECIMENOrdering Facility: [facility] Address: [address] [place] [address] Performed By: #### 2 4323-8 ####[facility] LABIA [id number] [address] [place] Creatinine [Mass/Vol] 2.16 mg/dL High 0.73-1.22 [facility] Comment on above: Order Comment: Speci men Type: BLOOD SPECIMENOrdering Facility: [facility] Address: [address] [place] [address] Performed By: #### 2 4323-8 ####[facility] LABIA [id number] [address] [facility] Creatinine and Glomerular filtration rate.predicted panel (S/P/Bld) 33 mL/min/1.73m??? Low >=60 [facility] Comment on above: Order Comment: Speci men Type: BLOOD SPECIMENOrdering Facility: [facility] Address: [address] [place] [address] Result Comment: Syl mated Glomerular Filtration Rate (eGFR) is calculated using the 2020 CKD-EPI creatinine equation. This equation utilizes serum creatinine, sex, and age as parameters. The creatinine assay has traceable calibration to isotope dilution-mass spectrometry. Refer to KDIGO guidelines for clinical interpretation. In patients with unstable renal function, e.g. those with acute kidney injury, the eGFR may not accurately reflect actual GFR. Performed By: #### 2 4323-8 ####[facility] LABCLIA [id number] [place] [address] [place] Glucose [Mass/Vol] 214 mg/dL High 74-99 [facility] Comment on above: Order Comment: Speci men Type: BLOOD SPECIMENOrdering Facility: [facility] Address: [address] [id number] Result Comment: The [place] [employer] (ADA) provides guidance for cutoff values for fasting glucose and random glucose. The ADA defines fasting as no caloric intake for at least 8 hours. Fasting plasma glucose results between 100 to 125 mg/dL indicate increased risk for diabetes (prediabetes).Fasting plasma glucose results greater than or equal to 126 mg/dL meet the criteria for diagnosis of diabetes. In the absence of unequivocal hyperglycemia, results should be confirmed by repeat testing. In a patient with classic symptoms of hyperglycemia or hyperglycemic crisis, random plasma glucose results greater than or equal to 200 mg/dL meet the criteria for diagnosis of diabetes.Reference: Standards of Medical Care in Diabetes 2016, [place] [employer]. Diabetes Care. 2016.39(Suppl 1). Performed By: #### 2 4323-8 ####[facility] LABCLIA [id number] [place] [address] [place] Potassium [Moles/Vol] 4.4 mmol/L Normal 3.7-5.1 [facility] Comment on above: Order Comment: Speci men Type: BLOOD SPECIMENOrdering Facility: [facility] Address: [address] [place] [address] Performed By: #### 2 4323-8 ####[facility] LABCLIA [id number] [place] [id number] [place] Protein [Mass/Vol] 6.2 g/dL Low 6.3-8.0 [facility] Comment on above: Order Comment: Speci men Type: BLOOD SPECIMENOrdering Facility: [facility] Address: [address] [address] Performed By: #### 2 4323-8 ####[facility] LABIA [id number] [place] [address] [place] Sodium [Moles/Vol] 129 mmol/L Low 136-144 [facility] Comment on above: Order Comment: Speci men Type: BLOOD SPECIMENOrdering Facility: [facility] Address: [address] [place] [address] Performed By: #### 2 4323-8 ####[facility] LABIA [id number] [place] [address] [place] Urea nitrogen [Mass/Vol] 56 mg/dL High 9-24 [facility] Comment on above: Order Comment: Speci men Type: BLOOD SPECIMENOrdering Facility: [facility] Address: [address] [place] [address] Performed By: #### 2 4323-8 ####[facility] [id number] [place] [address] [place] NURSING PROGon 03-28-2023 NURSING PROG Normal [facility] PT EDon 03-28-2023 PT ED Normal [facility] PT panel Coag (PPP)on 2022 INR Coag (PPP) [Relative time] 1.6 {INR} High 0.9-1.3 [facility] Comment on above: Order Comment: Speci men Type: BLOOD SPECIMENOrdering Facility: [facility] Address: [address] [place] [address] Result Comment: Baylee min K Antagonist (VKA) Therapeutic Range: INR 2 to 3 (Target INR of 2.5)Note: For patients treated with VKA drugs, such as warfarin, the [place] [employer] 2012 Guideline recommends a therapeutic INR range of 2 to 3 (target INR of 2.5). This recommendation includes high-risk patients with antiphospholipid syndrome with previous arterial or venous thromboembolism, current-generation mechanical or bioprosthetic aortic heart valve replacement.Note: Patients with mechanical aortic valve replacement and additional risk factors for thromboembolic events (atrial fibrillation, previous thromboembolism, LV dysfunction, hypercoagulable conditions) or an older generation mechanical AVR (i.e., ball in-Cage) or any mechanical MVR should have a INR therapeutic range of 2.5 to 3.5 (target INR of 3).Geovanna GH, et al. Chest 2012, 141:7S-47SNishimura RA, et al. [facility] 2017, 70: 252-289 Performed By: #### 3 4528-0, 17668-7 ####[facility] LABCLIA [id number] [place] [address] [place] PT Coag (PPP) [Time] 16.5 s High 9.7-13.0 [facility] Comment on above: Order Comment: Speci men Type: BLOOD SPECIMENOrdering Facility: [facility] Address: [address] [place] [address] Performed By: #### 3 4528-0, 54815-5 ####[facility] LABIA [id number] [address] [place] aPTT PPPon 03-28-2023 aPTT Coag (PPP) [Time] 33.6 s High 23.0-32.4 [facility] Comment on above: Order Comment: Reneei men Type: BLOOD SPECIMENOrdering Facility: [facility] Address: [address] [place] [address] Performed By: #### 3 4528-0, 64955-1 ####[facility] LABIA [id number] [place] [address] [place] CASE MANAGEMon 03-27-2023 CASE MANAGEM Normal [facility] CBC panel Auto (Bld)on 03-27 Erythrocyte distribution width (RBC) [Ratio] 20.8 % High 11.5-15.0 [facility] Comment on above: Order Comment: Speci men Type: BLOOD SPECIMENOrdering Facility: [facility] Address: [address] Performed By: #### 5 8410-2 ####[facility] LABIA [id number] [address] [place] Hematocrit (Bld) [Volume fraction] 35.1 % Low 39.0-51.0 [facility] Comment on above: Order Comment: Speci men Type: BLOOD SPECIMENOrdering Facility: [facility] Address: [address] Performed By: #### 5 8410-2 ####[facility] LABIA [id number] [place] [address] [place] Hemoglobin (Bld) [Mass/Vol] 10.9 g/dL Low 13.0-17.0 [facility] Comment on above: Order Comment: Speci men Type: BLOOD SPECIMENOrdering Facility: [facility] Address: [address] [place], [place] [address] Performed By: #### 5 8410-2 ####[facility] LABIA [id number] [address] [place] MCH (RBC) [Entitic mass] 24.9 pg Low 26.0-34.0 [facility] Comment on above: Order Comment: Speci men Type: BLOOD SPECIMENOrdering Facility: [facility] Address: [address] Performed By: #### 5 8410-2 ####[facility] LABIA [id number] [place] [address] [place] MCHC (RBC) [Mass/Vol] 31.1 g/dL Normal 30.5-36.0 [facility] Comment on above: Order Comment: Speci men Type: BLOOD SPECIMENOrdering Facility: [facility] Address: [address] [place], [place] [address] Performed By: #### 5 8410-2 ####[facility] LABIA [id number] [place] [address] [place] MCV (RBC) [Entitic vol] 80.3 fL Normal 80.0-100.0 [facility] Comment on above: Order Comment: Speci men Type: BLOOD SPECIMENOrdering Facility: [facility] Address: [address] [place] [address] Performed By: #### 5 8410-2 ####[facility] LABIA [id number] [place] [address] [place] Nucleated RBC (Bld) [#/Vol] 10*3/uL Normal <0.01 [facility] Comment on above: Order Comment: Speci men Type: BLOOD SPECIMENOrdering Facility: [facility] Address: [address] [place] [address] Performed By: #### 5 8410-2 ####[facility] [id number] [place] [address] [place] Platelet mean volume (Bld) [Entitic vol] 10.1 fL Normal 9.0-12.7 [facility] Comment on above: Order Comment: Speci men Type: BLOOD SPECIMENOrdering Facility: [facility] Address: [address] [place], [place] [address] Performed By: #### 5 8410-2 ####[facility] [id number] [place] [address] [place] Platelets (Bld) [#/Vol] 234 10*3/uL Normal 150-400 [facility] Comment on above: Order Comment: Speci men Type: BLOOD SPECIMENOrdering Facility: [facility] Address: [address] [place], [place] [address] Performed By: #### 5 8410-2 ####[facility] LABIA [id number] [place] [address] [place] RBC (Bld) [#/Vol] 4.37 10*6/uL Normal 4.20-6.00 [facility] Comment on above: Order Comment: Speci men Type: BLOOD SPECIMENOrdering Facility: [facility] Address: [address] [place], [place] [address] Performed By: #### 5 8410-2 ####[facility] LABCLIA [id number] [place] [address] [place] WBC (Bld) [#/Vol] 10.25 10*3/uL Normal 3.70-11.00 [facility] Comment on above: Order Comment: Speci men Type: BLOOD SPECIMENOrdering Facility: [facility] Address: [address] [place] [address] Performed By: #### 5 8410-2 ####[facility] LABCLIA [id number] [place] [address] [place] CONSULTon 03-27-2023 CONSULT Normal [facility] CONSULT PROGon 03-27-2023 CONSULT PROG Normal [facility] Comprehensive metabolic 2000 panelon 03-27-2023 Albumin [Mass/Vol] 3.3 g/dL Low 3.9-4.9 [facility] Comment on above: Order Comment: Speci men Type: BLOOD SPECIMENOrdering Facility: [facility] Address: [address] [place], [place] [address] Performed By: #### 2 4323-8 ####[facility] LABCLIA [id number] [place] [address] [place] ALP [Catalytic activity/Vol] 141 U/L High 38-113 [facility] Comment on above: Order Comment: Speci men Type: BLOOD SPECIMENOrdering Facility: [facility] Address: [address] [place] [address] Performed By: #### 2 4323-8 ####[facility] LABCLIA [id number] [place] [address] [place] ALT [Catalytic activity/Vol] 36 U/L Normal 10-54 [facility] Comment on above: Order Comment: Speci men Type: BLOOD SPECIMENOrdering Facility: [facility] Address: [address] [address] Performed By: #### 2 4323-8 ####[facility] LABCLIA [id number] [place] [address] [place] Anion gap [Moles/Vol] 13 mmol/L Normal 9-18 [facility] Comment on above: Order Comment: Speci men Type: BLOOD SPECIMENOrdering Facility: [facility] Address: [address] [place] [address] Performed By: #### 2 4323-8 ####[facility] LABCLIA [id number] [place] [address] [place] AST [Catalytic activity/Vol] 29 U/L Normal 14-40 [facility] Comment on above: Order Comment: Speci men Type: BLOOD SPECIMENOrdering Facility: [facility] Address: [address] [place] [address] Performed By: #### 2 4323-8 ####[facility] LABCLIA [id number] [place] [address] [place] Bilirubin [Mass/Vol] 2.1 mg/dL High 0.2-1.3 [facility] Comment on above: Order Comment: Speci men Type: BLOOD SPECIMENOrdering Facility: [facility] Address: [address] Performed By: #### 2 4323-8 ####[facility] LABCLIA [id number] [place] [address] [place] Calcium [Mass/Vol] 9.1 mg/dL Normal 8.5-10.2 [facility] Comment on above: Order Comment: Speci men Type: BLOOD SPECIMENOrdering Facility: [facility] Address: [address] Performed By: #### 2 4323-8 ####[facility] LABCLIA [id number] [place] [address] [place] Chloride [Moles/Vol] 94 mmol/L Low 97-105 [facility] Comment on above: Order Comment: Speci men Type: BLOOD SPECIMENOrdering Facility: [facility] Address: [address] [place] [address] Performed By: #### 2 4323-8 ####[facility] LABCLIA [id number] [place] [address] [place] CO2 [Moles/Vol] 23 mmol/L Normal 22-30 [facility] Comment on above: Order Comment: Speci men Type: BLOOD SPECIMENOrdering Facility: [facility] Address: [address] [place] [address] Performed By: #### 2 4323-8 ####[facility] LABCLIA [id number] [address] [place] Creatinine [Mass/Vol] 2.32 mg/dL High 0.73-1.22 [facility] Comment on above: Order Comment: Speci men Type: BLOOD SPECIMENOrdering Facility: [facility] Address: [address] [place] [address] Performed By: #### 2 4323-8 ####[facility] LABIA [id number] [address] Creatinine and Glomerular filtration rate.predicted panel (S/P/Bld) 30 mL/min/1.73m??? Low >=60 [facility] Comment on above: Order Comment: Speci men Type: BLOOD SPECIMENOrdering Facility: [facility] Address: [address] [place] [address] Result Comment: Syl mated Glomerular Filtration Rate (eGFR) is calculated using the 2020 CKD-EPI creatinine equation. This equation utilizes serum creatinine, sex, and age as parameters. The creatinine assay has traceable calibration to isotope dilution-mass spectrometry. Refer to KDIGO guidelines for clinical interpretation. In patients with unstable renal function, e.g. those with acute kidney injury, the eGFR may not accurately reflect actual GFR. Performed By: #### 2 4323-8 ####[facility] LABCLIA [id number] [place] [address] [place] Glucose [Mass/Vol] 171 mg/dL High 74-99 [facility] Comment on above: Order Comment: Speccate clemons Type: BLOOD SPECIMENOrdering Facility: [facility] Address: [address] [id number] Result Comment: The [place] [employer] (ADA) provides guidance for cutoff values for fasting glucose and random glucose. The ADA defines fasting as no caloric intake for at least 8 hours. Fasting plasma glucose results between 100 to 125 mg/dL indicate increased risk for diabetes (prediabetes).Fasting plasma glucose results greater than or equal to 126 mg/dL meet the criteria for diagnosis of diabetes. In the absence of unequivocal hyperglycemia, results should be confirmed by repeat testing. In a patient with classic symptoms of hyperglycemia or hyperglycemic crisis, random plasma glucose results greater than or equal to 200 mg/dL meet the criteria for diagnosis of diabetes.Reference: Standards of Medical Care in Diabetes 2016, [place] [employer]. Diabetes Care. 2016.39(Suppl 1). Performed By: #### 2 4323-8 ####[facility] LABCLIA [id number] [place] [address] [place] Potassium [Moles/Vol] 4.3 mmol/L Normal 3.7-5.1 [facility] Comment on above: Order Comment: Joseline clemons Type: BLOOD SPECIMENOrdering Facility: [facility] Address: [address] [id number] Performed By: #### 2 4323-8 ####[facility] LABCLIA [id number] [address] [address] [place] Protein [Mass/Vol] 6.1 g/dL Low 6.3-8.0 [facility] Comment on above: Order Comment: Speci men Type: BLOOD SPECIMENOrdering Facility: [facility] Address: [address] [place] [address] Performed By: #### 2 4323-8 ####[facility] LABCLIA [id number] [place] [address] [place] Sodium [Moles/Vol] 130 mmol/L Low 136-144 [facility] Comment on above: Order Comment: Speci men Type: BLOOD SPECIMENOrdering Facility: [facility] Address: [address] [place] [address] Performed By: #### 2 4323-8 ####[facility] LABCLIA [id number] [place] [address] [place] Urea nitrogen [Mass/Vol] 62 mg/dL High 9-24 [facility] Comment on above: Order Comment: Speci men Type: BLOOD SPECIMENOrdering Facility: [facility] Address: [address] [place] [address] Performed By: #### 2 4323-8 ####[facility] LABCLIA [id number] [place] [address] [place] IR ARM VENO SYMPTOMATIC BILo n 03-27-2023 IR ARM VENO SYMPTOMATIC NACHO Normal [facility] PT EDon 03-27-2023 PT ED Normal [facility] PT panel Coag (PPP)on 2022 INR Coag (PPP) [Relative time] 2.9 {INR} High 0.9-1.3 [facility] Comment on above: Order Comment: Speci men Type: BLOOD SPECIMENOrdering Facility: [facility] Address: [address] [place] [address] Result Comment: Baylee min K Antagonist (VKA) Therapeutic Range: INR 2 to 3 (Target INR of 2.5)Note: For patients treated with VKA drugs, such as warfarin, the [place] [employer] 2012 Guideline recommends a therapeutic INR range of 2 to 3 (target INR of 2.5). This recommendation includes high-risk patients with antiphospholipid syndrome with previous arterial or venous thromboembolism, current-generation mechanical or bioprosthetic aortic heart valve replacement.Note: Patients with mechanical aortic valve replacement and additional risk factors for thromboembolic events (atrial fibrillation, previous thromboembolism, LV dysfunction, hypercoagulable conditions) or an older generation mechanical AVR (i.e., ball in-Cage) or any mechanical MVR should have a INR therapeutic range of 2.5 to 3.5 (target INR of 3).Geovanna GH, et al. Chest 2012, 141:7S-47SNishpeteura RA, et al. [facility] 2017, 70: 252-289 Performed By: #### 3 4528-0 ####[facility] [id number] [address] STATES OF [facility] PT Coag (PPP) [Time] 28.2 s High 9.7-13.0 [facility] Comment on above: Order Comment: Joseline clemons Type: BLOOD SPECIMENOrdering Facility: [facility] Address: [address] [place] [address] Performed By: #### 3 4528-0 ####[facility] [id number] [address] OF [facility] INR Coag (PPP) [Relative time] 3.0 {INR} High 0.9-1.3 [facility] Comment on above: Order Comment: Joseline clemons Type: BLOOD SPECIMENOrdering Facility: [facility] Address: [address] [place] [address] Result Comment: Baylee min K Antagonist (VKA) Therapeutic Range: INR 2 to 3 (Target INR of 2.5)Note: For patients treated with VKA drugs, such as warfarin, the [place] [employer] 2012 Guideline recommends a therapeutic INR range of 2 to 3 (target INR of 2.5). This recommendation includes high-risk patients with antiphospholipid syndrome with previous arterial or venous thromboembolism, current-generation mechanical or bioprosthetic aortic heart valve replacement.Note: Patients with mechanical aortic valve replacement and additional risk factors for thromboembolic events (atrial fibrillation, previous thromboembolism, LV dysfunction, hypercoagulable conditions) or an older generation mechanical AVR (i.e., ball in-Cage) or any mechanical MVR should have a INR therapeutic range of 2.5 to 3.5 (target INR of 3).Geovanna NEGRON et al. Chest 2012, 141:7S-47STrudy JONES et al. [facility] 2017, 70: 252-289 Performed By: #### 3 4528-0 ####[facility] [id number] [address] [place] [facility] PT Coag (PPP) [Time] 29.7 s High 9.7-13.0 [facility] Comment on above: Order Comment: Joseline clemons Type: BLOOD SPECIMENOrdering Facility: [facility] Address: [address] [place] [address] Performed By: #### 3 4528-0 ####[facility] [id number] [address] OF [facility] INR Coag (PPP) [Relative time] 3.2 {INR} High 0.9-1.3 [facility] Comment on above: Order Comment: Joseline clemons Type: BLOOD SPECIMENOrdering Facility: [facility] Address: [address] [place] [address] Result Comment: Baylee min K Antagonist (VKA) Therapeutic Range: INR 2 to 3 (Target INR of 2.5)Note: For patients treated with VKA drugs, such as warfarin, the [place] [employer] 2012 Guideline recommends a therapeutic INR range of 2 to 3 (target INR of 2.5). This recommendation includes high-risk patients with antiphospholipid syndrome with previous arterial or venous thromboembolism, current-generation mechanical or bioprosthetic aortic heart valve replacement.Note: Patients with mechanical aortic valve replacement and additional risk factors for thromboembolic events (atrial fibrillation, previous thromboembolism, LV dysfunction, hypercoagulable conditions) or an older generation mechanical AVR (i.e., ball in-Cage) or any mechanical MVR should have a INR therapeutic range of 2.5 to 3.5 (target INR of 3).Geovanna NEGRON et al. Chest 2012, 141:7S-47SNishimura RA, et al. [facility] 2017, 70: 252-289 Performed By: #### 3 4528-0 ####[facility] LABIA [id number] [place] [address] [place] PT Coag (PPP) [Time] 30.7 s High 9.7-13.0 [facility] Comment on above: Order Comment: Speci men Type: BLOOD SPECIMENOrdering Facility: [facility] Address: [address] [place] [address] Performed By: #### 3 4528-0 ####[facility] LABIA [id number] [address] [place] CBC panel Auto (Bld)on 03-26 Erythrocyte distribution width (RBC) [Ratio] 20.7 % High 11.5-15.0 [facility] Comment on above: Order Comment: Speci men Type: BLOOD SPECIMENOrdering Facility: [facility] Address: [address] [place] [address] Performed By: #### 5 8410-2 ####[facility] [id number] [place] [address] [place] Hematocrit (Bld) [Volume fraction] 36.3 % Low 39.0-51.0 [facility] Comment on above: Order Comment: Speci men Type: BLOOD SPECIMENOrdering Facility: [facility] Address: [address] [place] [address] Performed By: #### 5 8410-2 ####[facility] LABIA [id number] [place] [address] [place] Hemoglobin (Bld) [Mass/Vol] 11.3 g/dL Low 13.0-17.0 [facility] Comment on above: Order Comment: Speci men Type: BLOOD SPECIMENOrdering Facility: [facility] Address: [address] [place] [address] Performed By: #### 5 8410-2 ####[facility] [id number] [address] STATES [place] [facility] MCH (RBC) [Entitic mass] 24.9 pg Low 26.0-34.0 [facility] Comment on above: Order Comment: Speci men Type: BLOOD SPECIMENOrdering Facility: [facility] Address: [address] [place] [address] Performed By: #### 5 8410-2 ####[facility] [id number] [place] [address] [place] MCHC (RBC) [Mass/Vol] 31.1 g/dL Normal 30.5-36.0 [facility] Comment on above: Order Comment: Speci men Type: BLOOD SPECIMENOrdering Facility: [facility] Address: [address] [place] [address] Performed By: #### 5 8410-2 ####[facility] [id number] [address] [place] MCV (RBC) [Entitic vol] 80.1 fL Normal 80.0-100.0 [facility] Comment on above: Order Comment: Speci men Type: BLOOD SPECIMENOrdering Facility: [facility] Address: [address] [place] [id number] Performed By: #### 5 8410-2 ####[facility] [id number] [address] [place] Nucleated RBC (Bld) [#/Vol] 10*3/uL Normal <0.01 [facility] Comment on above: Order Comment: Speci men Type: BLOOD SPECIMENOrdering Facility: [facility] Address: [address] [place] [address] Performed By: #### 5 8410-2 ####[facility] [id number] [address] [address] [place] Platelet mean volume (Bld) [Entitic vol] 9.7 fL Normal 9.0-12.7 [facility] Comment on above: Order Comment: Speci men Type: BLOOD SPECIMENOrdering Facility: [facility] Address: [address] [place] [address] Performed By: #### 5 8410-2 ####[facility] LABCLIA [id number] [place] [address] [place] Platelets (Bld) [#/Vol] 237 10*3/uL Normal 150-400 [facility] Comment on above: Order Comment: Speci men Type: BLOOD SPECIMENOrdering Facility: [facility] Address: [address] [place], [place] [address] Performed By: #### 5 8410-2 ####[facility] LABCLIA [id number] [place] [address] [place] RBC (Bld) [#/Vol] 4.53 10*6/uL Normal 4.20-6.00 [facility] Comment on above: Order Comment: Speci men Type: BLOOD SPECIMENOrdering Facility: [facility] Address: [address] [place], [place] [address] Performed By: #### 5 8410-2 ####[facility] LABIA [id number] [place] [address] [place] WBC (Bld) [#/Vol] 9.04 10*3/uL Normal 3.70-11.00 [facility] Comment on above: Order Comment: Speci men Type: BLOOD SPECIMENOrdering Facility: [facility] Address: [address] [place], [place] [address] Performed By: #### 5 8410-2 ####[facility] LABCLIA [id number] [place] [address] [place] CONSULT PROGon 03-26-2023 CONSULT PROG Normal [facility] Comprehensive metabolic 2000 panelon 03-26-2023 Albumin [Mass/Vol] 3.5 g/dL Low 3.9-4.9 [facility] Comment on above: Order Comment: Speci men Type: BLOOD SPECIMENOrdering Facility: [facility] Address: [address] [place] [address] Performed By: #### 2 4323-8 ####[facility] LABCLIA [id number] [facility] [place] [address] [place] ALP [Catalytic activity/Vol] 146 U/L High 38-113 [facility] Comment on above: Order Comment: Speci men Type: BLOOD SPECIMENOrdering Facility: [facility] Address: [address] [place] [address] Performed By: #### 2 4323-8 ####[facility] LABCLIA [id number] [place] [address] [place] ALT [Catalytic activity/Vol] 36 U/L Normal 10-54 [facility] Comment on above: Order Comment: Speci men Type: BLOOD SPECIMENOrdering Facility: [facility] Address: [address] [place] [address] Performed By: #### 2 4323-8 ####[facility] LABCLIA [id number] [place] [address] [place] Anion gap [Moles/Vol] 15 mmol/L Normal 9-18 [facility] Comment on above: Order Comment: Speci men Type: BLOOD SPECIMENOrdering Facility: [facility] Address: [address] [place] [address] Performed By: #### 2 4323-8 ####[facility] LABCLIA [id number] [place] [address] [place] AST [Catalytic activity/Vol] 36 U/L Normal 14-40 [facility] Comment on above: Order Comment: Speci men Type: BLOOD SPECIMENOrdering Facility: [facility] Address: [address] [place] [address] Performed By: #### 2 4323-8 ####[facility] LABCLIA [id number] [place] [address] [place] Bilirubin [Mass/Vol] 2.7 mg/dL High 0.2-1.3 [facility] Comment on above: Order Comment: Speci men Type: BLOOD SPECIMENOrdering Facility: [facility] Address: [address] Performed By: #### 2 4323-8 ####[facility] LABCLIA [id number] [place] [address] [place] Calcium [Mass/Vol] 9.2 mg/dL Normal 8.5-10.2 [facility] Comment on above: Order Comment: Speci men Type: BLOOD SPECIMENOrdering Facility: [facility] Address: [address] [place], [place] [address] Performed By: #### 2 4323-8 ####[facility] LABCLIA [id number] [place] [address] [place] Chloride [Moles/Vol] 94 mmol/L Low 97-105 [facility] Comment on above: Order Comment: Speci men Type: BLOOD SPECIMENOrdering Facility: [facility] Address: [address] [place], [place] [address] Performed By: #### 2 4323-8 ####[facility] LABCLIA [id number] [place] [address] [place] CO2 [Moles/Vol] 22 mmol/L Normal 22-30 [facility] Comment on above: Order Comment: Speci men Type: BLOOD SPECIMENOrdering Facility: [facility] Address: [address] [place], [place] [address] Performed By: #### 2 4323-8 ####[facility] LABCLIA [id number] [place] [address] [place] Creatinine [Mass/Vol] 2.26 mg/dL High 0.73-1.22 [facility] Comment on above: Order Comment: Josleine clemons Type: BLOOD SPECIMENOrdering Facility: [facility] Address: [address] [address] Performed By: #### 2 4323-8 ####[facility] LABCLIA [id number] [address] OF [facility] Creatinine and Glomerular filtration rate.predicted panel (S/P/Bld) 31 mL/min/1.73m??? Low >=60 [facility] Comment on above: Order Comment: Joseline clemons Type: BLOOD SPECIMENOrdering Facility: [facility] Address: [address] [place] [address] Result Comment: Syl mated Glomerular Filtration Rate (eGFR) is calculated using the 2020 CKD-EPI creatinine equation. This equation utilizes serum creatinine, sex, and age as parameters. The creatinine assay has traceable calibration to isotope dilution-mass spectrometry. Refer to KDIGO guidelines for clinical interpretation. In patients with unstable renal function, e.g. those with acute kidney injury, the eGFR may not accurately reflect actual GFR. Performed By: #### 2 4323-8 ####[facility] LABCLIA [id number] [place] [address] [place] Glucose [Mass/Vol] 154 mg/dL High 74-99 [facility] Comment on above: Order Comment: Joseline clemons Type: BLOOD SPECIMENOrdering Facility: [facility] Address: [address] [place] [address] Result Comment: The [place] [employer] (ADA) provides guidance for cutoff values for fasting glucose and random glucose. The ADA defines fasting as no caloric intake for at least 8 hours. Fasting plasma glucose results between 100 to 125 mg/dL indicate increased risk for diabetes (prediabetes).Fasting plasma glucose results greater than or equal to 126 mg/dL meet the criteria for diagnosis of diabetes. In the absence of unequivocal hyperglycemia, results should be confirmed by repeat testing. In a patient with classic symptoms of hyperglycemia or hyperglycemic crisis, random plasma glucose results greater than or equal to 200 mg/dL meet the criteria for diagnosis of diabetes.Reference: Standards of Medical Care in Diabetes 2016, [place] [employer]. Diabetes Care. 2016.39(Suppl 1). Performed By: #### 2 4323-8 ####[facility] LABCLIA [id number] [place] [address] [place] Potassium [Moles/Vol] 4.4 mmol/L Normal 3.7-5.1 [facility] Comment on above: Order Comment: Speci men Type: BLOOD SPECIMENOrdering Facility: [facility] Address: [address] [address] Performed By: #### 2 4323-8 ####[facility] LABCLIA [id number] [place] [address] [place] Protein [Mass/Vol] 5.9 g/dL Low 6.3-8.0 [facility] Comment on above: Order Comment: Speci men Type: BLOOD SPECIMENOrdering Facility: [facility] Address: [address] [address] Performed By: #### 2 4323-8 ####[facility] LABCLIA [id number] [place] [address] [place] Sodium [Moles/Vol] 131 mmol/L Low 136-144 [facility] Comment on above: Order Comment: Speci men Type: BLOOD SPECIMENOrdering Facility: [facility] Address: [address] Performed By: #### 2 4323-8 ####[facility] LABCLIA [id number] [place] [address] [place] Urea nitrogen [Mass/Vol] 61 mg/dL High 9-24 [facility] Comment on above: Order Comment: Speci men Type: BLOOD SPECIMENOrdering Facility: [facility] Address: [address] Performed By: #### 2 4323-8 ####[facility] LABCLIA [id number] [place] [address] [place] PT panel Coag (PPP)on 2022 INR Coag (PPP) [Relative time] 3.0 {INR} High 0.9-1.3 [facility] Comment on above: Order Comment: Speci men Type: BLOOD SPECIMENOrdering Facility: [facility] Address: [address] [place] [address] Result Comment: Baylee min K Antagonist (VKA) Therapeutic Range: INR 2 to 3 (Target INR of 2.5)Note: For patients treated with VKA drugs, such as warfarin, the [place] [employer] 2012 Guideline recommends a therapeutic INR range of 2 to 3 (target INR of 2.5). This recommendation includes high-risk patients with antiphospholipid syndrome with previous arterial or venous thromboembolism, current-generation mechanical or bioprosthetic aortic heart valve replacement.Note: Patients with mechanical aortic valve replacement and additional risk factors for thromboembolic events (atrial fibrillation, previous thromboembolism, LV dysfunction, hypercoagulable conditions) or an older generation mechanical AVR (i.e., ball in-Cage) or any mechanical MVR should have a INR therapeutic range of 2.5 to 3.5 (target INR of 3).Geovanna GH, et al. Chest 2012, 141:7S-47SNishimrashard RA, et al. [facility] 2017, 70: 252-289 Performed By: #### 3 4528-0 ####[facility] LABIA [id number] [place] [address] [place] PT Coag (PPP) [Time] 29.4 s High 9.7-13.0 [facility] Comment on above: Order Comment: Speci men Type: BLOOD SPECIMENOrdering Facility: [facility] Address: [place] [address] Performed By: #### 3 4528-0 ####[facility] LABIA [id number] [address] [place] CBC panel Auto (Bld)on 03-25 Erythrocyte distribution width (RBC) [Ratio] 20.8 % High 11.5-15.0 [facility] Comment on above: Order Comment: Speci men Type: BLOOD SPECIMENOrdering Facility: [facility] Address: [address] [place] [address] Performed By: #### 5 8410-2 ####[facility] LABCLIA [id number] [place] [address] [place] Hematocrit (Bld) [Volume fraction] 38.1 % Low 39.0-51.0 [facility] Comment on above: Order Comment: Speci men Type: BLOOD SPECIMENOrdering Facility: [facility] Address: [address] [place] [address] Performed By: #### 5 8410-2 ####[facility] LABIA [id number] [place] [address] [place] Hemoglobin (Bld) [Mass/Vol] 12.0 g/dL Low 13.0-17.0 [facility] Comment on above: Order Comment: Speci men Type: BLOOD SPECIMENOrdering Facility: [facility] Address: [address] [place] [address] Performed By: #### 5 8410-2 ####[facility] LABIA [id number] [place] [address] [place] MCH (RBC) [Entitic mass] 25.6 pg Low 26.0-34.0 [facility] Comment on above: Order Comment: Speci men Type: BLOOD SPECIMENOrdering Facility: [facility] Address: [address] [place] [address] Performed By: #### 5 8410-2 ####[facility] LABIA [id number] [place] [address] [place] MCHC (RBC) [Mass/Vol] 31.5 g/dL Normal 30.5-36.0 [facility] Comment on above: Order Comment: Speci men Type: BLOOD SPECIMENOrdering Facility: [facility] Address: [address] Performed By: #### 5 8410-2 ####[facility] [id number] [address] [place] MCV (RBC) [Entitic vol] 81.2 fL Normal 80.0-100.0 [facility] Comment on above: Order Comment: Speci men Type: BLOOD SPECIMENOrdering Facility: [facility] Address: [address] Performed By: #### 5 8410-2 ####[facility] [id number] [place] [address] [place] Nucleated RBC (Bld) [#/Vol] 0.02 10*3/uL High <0.01 [facility] Comment on above: Order Comment: Speci men Type: BLOOD SPECIMENOrdering Facility: [facility] Address: [address] Performed By: #### 5 8410-2 ####[facility] [id number] [place] [address] [place] Platelet mean volume (Bld) [Entitic vol] 9.5 fL Normal 9.0-12.7 [facility] Comment on above: Order Comment: Speci men Type: BLOOD SPECIMENOrdering Facility: [facility] Address: [address] Performed By: #### 5 8410-2 ####[facility] [id number] [place] [address] [place] Platelets (Bld) [#/Vol] 244 10*3/uL Normal 150-400 [facility] Comment on above: Order Comment: Speci men Type: BLOOD SPECIMENOrdering Facility: [facility] Address: [address] [place], [place] [address] Performed By: #### 5 8410-2 ####[facility] LABCLIA [id number] [place] [address] [place] RBC (Bld) [#/Vol] 4.69 10*6/uL Normal 4.20-6.00 [facility] Comment on above: Order Comment: Speci men Type: BLOOD SPECIMENOrdering Facility: [facility] Address: [address] [place] [address] Performed By: #### 5 8410-2 ####[facility] LABIA [id number] [place] [address] [place] WBC (Bld) [#/Vol] 10.45 10*3/uL Normal 3.70-11.00 [facility] Comment on above: Order Comment: Speci kaci Type: BLOOD SPECIMENOrdering Facility: [facility] Address: [address] [place] [address] Performed By: #### 5 8410-2 ####[facility] LABIA [id number] [place] [address] [place] CONSULT PROGon 03-25-2023 CONSULT PROG Normal [facility] PT EDon 03-25-2023 PT ED Normal [facility] PT panel Coag (PPP)on 2022 INR Coag (PPP) [Relative time] 2.9 {INR} High 0.9-1.3 [facility] Comment on above: Order Comment: Reneei kaci Type: BLOOD SPECIMENOrdering Facility: [facility] Address: [address] [place] [address] Result Comment: Baylee min K Antagonist (VKA) Therapeutic Range: INR 2 to 3 (Target INR of 2.5)Note: For patients treated with VKA drugs, such as warfarin, the [place] [employer] 2012 Guideline recommends a therapeutic INR range of 2 to 3 (target INR of 2.5). This recommendation includes high-risk patients with antiphospholipid syndrome with previous arterial or venous thromboembolism, current-generation mechanical or bioprosthetic aortic heart valve replacement.Note: Patients with mechanical aortic valve replacement and additional risk factors for thromboembolic events (atrial fibrillation, previous thromboembolism, LV dysfunction, hypercoagulable conditions) or an older generation mechanical AVR (i.e., ball in-Cage) or any mechanical MVR should have a INR therapeutic range of 2.5 to 3.5 (target INR of 3).Geovanna NEGRON, et al. Chest 2012, 141:7S-47STrudy RA, et al. [facility] 2017, 70: 252-289 Performed By: #### 3 4528-0 ####[facility] LABIA [id number] [place] [address] [place] PT Coag (PPP) [Time] 28.7 s High 9.7-13.0 [facility] Comment on above: Order Comment: Joseline clemons Type: BLOOD SPECIMENOrdering Facility: [facility] Address: [address] [place] [address] Performed By: #### 3 4528-0 ####[facility] [id number] [place] [address] [place] THERAPY NTon 03-25-2023 THERAPY NT Normal [facility] CBC panel Auto (Bld)on 03-24 Erythrocyte distribution width (RBC) [Ratio] 20.3 % High 11.5-15.0 [facility] Comment on above: Order Comment: Joseline clemons Type: BLOOD SPECIMENOrdering Facility: [facility] Address: [address] [address] Performed By: #### 5 8410-2 ####[facility] [id number] [address] STATES OF [facility] Hematocrit (Bld) [Volume fraction] 36.6 % Low 39.0-51.0 [facility] Comment on above: Order Comment: Joseline clemons Type: BLOOD SPECIMENOrdering Facility: [facility] Address: [address] [address] Performed By: #### 5 8410-2 ####[facility] LABIA [id number] [place] [address] [place] Hemoglobin (Bld) [Mass/Vol] 11.3 g/dL Low 13.0-17.0 [facility] Comment on above: Order Comment: Speci men Type: BLOOD SPECIMENOrdering Facility: [facility] Address: [address] [place] [address] Performed By: #### 5 8410-2 ####[facility] [id number] [place] [address] [place] MCH (RBC) [Entitic mass] 24.8 pg Low 26.0-34.0 [facility] Comment on above: Order Comment: Speci men Type: BLOOD SPECIMENOrdering Facility: [facility] Address: [address] [place] [address] Performed By: #### 5 8410-2 ####[facility] [id number] [address] [place] MCHC (RBC) [Mass/Vol] 30.9 g/dL Normal 30.5-36.0 [facility] Comment on above: Order Comment: Speci men Type: BLOOD SPECIMENOrdering Facility: [facility] Address: [address] [place] [address] Performed By: #### 5 8410-2 ####[facility] [id number] [address] [place] MCV (RBC) [Entitic vol] 80.4 fL Normal 80.0-100.0 [facility] Comment on above: Order Comment: Speci men Type: BLOOD SPECIMENOrdering Facility: [facility] Address: [address] [place] [address] Performed By: #### 5 8410-2 ####[facility] [id number] [place] [address] [place] Nucleated RBC (Bld) [#/Vol] 0.02 10*3/uL High <0.01 [facility] Comment on above: Order Comment: Speci men Type: BLOOD SPECIMENOrdering Facility: [facility] Address: [address] [place] [address] Performed By: #### 5 8410-2 ####[facility] LABCLIA [id number] [place] [address] [place] Platelet mean volume (Bld) [Entitic vol] 10.1 fL Normal 9.0-12.7 [facility] Comment on above: Order Comment: Speci men Type: BLOOD SPECIMENOrdering Facility: [facility] Address: [address] [place], [place] [address] Performed By: #### 5 8410-2 ####[facility] LABCLIA [id number] [place] [address] [place] Platelets (Bld) [#/Vol] 227 10*3/uL Normal 150-400 [facility] Comment on above: Order Comment: Speci men Type: BLOOD SPECIMENOrdering Facility: [facility] Address: [address] [place], [place] [address] Performed By: #### 5 8410-2 ####[facility] LABIA [id number] [place] [address] [place] RBC (Bld) [#/Vol] 4.55 10*6/uL Normal 4.20-6.00 [facility] Comment on above: Order Comment: Speci men Type: BLOOD SPECIMENOrdering Facility: [facility] Address: [address] [place], [place] [address] Performed By: #### 5 8410-2 ####[facility] LABCLIA [id number] [place] [address] [place] WBC (Bld) [#/Vol] 9.91 10*3/uL Normal 3.70-11.00 [facility] Comment on above: Order Comment: Speci men Type: BLOOD SPECIMENOrdering Facility: [facility] Address: [address] [place] [address] Performed By: #### 5 8410-2 ####[facility] LABCLIA [id number] [place] [address] [place] CONSULTon 03-24-2023 CONSULT Normal [facility] CONSULT PROGon 03-24-2023 CONSULT PROG Normal [facility] ICD CLINIC CHECKon 3 Federico RV Pacing Amplitude (volts) 2.0 V [facility] Federico RV Pacing Polarity BI [facility] Federico RV Pacing Pulse Width (ms) 0.4 ms [facility] Federico RV Sensing Amplitude (mvolts) 0.6 mV [facility] Federico RV Sensing Polarity BI [facility] Detection Configuration (Vent) 1 - Zone [facility] FastVT_Detection Interval 333 ms [facility] ICD FastVT DetectionStatus ENABLED [facility] ICD-ATP Episodes (Vent) 0 [facility] ICD-Device Mfg BSX [facility] ICD-Percent Pacing (Vent) 0 % [facility] ICD-Rhythm Normal Sinus Rhythm [facility] ICD-Shocks Aborted (Vent) 0 [facility] [id number] 0 [facility] ICD-SHOCKSABORTED 0 [facility] ICD-SHOCKSDELIVEREDVE NTRICULAR 0 [facility] ICD-Ventricular Fibrillation 0 [facility] Lead Impedance (RV) 505 ohm [facility] Lead Impedance High Voltage 93 ohm [facility] Lead1 Mfg BSX [facility] Location RV [facility] Lower Rate (bpm) 40 {beats}/min [facility] MDT_PROG_TACHY_ZONE_D ETECTIONS_STATUS ENABLED [facility] Model D150 DYNAGEN [facility] Model 0292 [employer] Relianc e 4-Site SG [facility] Pacemaker Dependent? NO [facility] Pacing Mode VVI [facility] Serial Number [id number] [facility] Serial Number [id number] [facility] Test Charge Time 11.0 s [facility] Therapy Status (Vent) Enabled [facility] Thresh RV Capture Amplitude (VOLTS) 0.6 V [facility] Thresh RV Capture Duration (MS) 0.4 ms [facility] VF Zone Detection Interval 273 ms [facility] VF Zone Therapy Configuration 1 ATP(s) + 8 Shock(s) [facility] NUTRITIONon 03-24-2023 NUTRITION Normal [facility] No Panel Informationon 03-24 BLANK _ [facility] ICD-Fast Ventricular Tachycardia 0 [facility] Implant Date 10/18/2017 [facility] PT panel Coag (PPP)on 2022 INR Coag (PPP) [Relative time] 2.5 {INR} High 0.9-1.3 [facility] Comment on above: Order Comment: Speci kaci Type: BLOOD SPECIMENOrdering Facility: [facility] Address: [address] [address] Result Comment: Baylee min K Antagonist (VKA) Therapeutic Range: INR 2 to 3 (Target INR of 2.5)Note: For patients treated with VKA drugs, such as warfarin, the [place] [employer] 2012 Guideline recommends a therapeutic INR range of 2 to 3 (target INR of 2.5). This recommendation includes high-risk patients with antiphospholipid syndrome with previous arterial or venous thromboembolism, current-generation mechanical or bioprosthetic aortic heart valve replacement.Note: Patients with mechanical aortic valve replacement and additional risk factors for thromboembolic events (atrial fibrillation, previous thromboembolism, LV dysfunction, hypercoagulable conditions) or an older generation mechanical AVR (i.e., ball in-Cage) or any mechanical MVR should have a INR therapeutic range of 2.5 to 3.5 (target INR of 3).Geovanna GH, et al. Chest 2012, 141:7S-47SNishpeteura RA, et al. [facility] 2017, 70: 252-289 Performed By: #### 3 4528-0 ####[facility] LABCLIA [id number] [facility] [id number] [place] PT Coag (PPP) [Time] 24.8 s High 9.7-13.0 [facility] Comment on above: Order Comment: Joseline clemons Type: BLOOD SPECIMENOrdering Facility: [facility] Address: [address] [place] [address] Performed By: #### 3 4528-0 ####[facility] LABCLIA [id number] [place] [id number] [place] PVR ANK/VELASCO/TOE NACHO VAS LAB on 03-24-2023 PVR ANK/VELASCO/TOE NACHO VAS LAB Normal [facility] Prot Ur-mCncon 03-24-2023 Protein (U) [Mass/Vol] 8 mg/dL Normal 0-20 [facility] Comment on above: Order Comment: Speci men Type: URINE SPECIMENOrdering Facility: [facility] Address: [address] [address] Performed By: #### 2 888-6 ####[facility] LABIA [id number] [place] [address] [place] Basic metabolic 2000 panelon 03-23-2023 Anion gap [Moles/Vol] 12 mmol/L Normal 9-18 [facility] Comment on above: Order Comment: Speci men Type: BLOOD SPECIMENOrdering Facility: [facility] Address: [address] [address] Performed By: #### 2 4321-2, 2885-2 ####[facility] LABIA [id number] [place] [address] [place] Calcium [Mass/Vol] 9.6 mg/dL Normal 8.5-10.2 [facility] Comment on above: Order Comment: Speci men Type: BLOOD SPECIMENOrdering Facility: [facility] Address: [address] [address] Performed By: #### 2 4321-2, 2885-2 ####[facility] LABIA [id number] [place] [address] [place] Chloride [Moles/Vol] 96 mmol/L Low 97-105 [facility] Comment on above: Order Comment: Speci men Type: BLOOD SPECIMENOrdering Facility: [facility] Address: [address] [address] Performed By: #### 2 4321-2, 2884-2 ####[facility] LABIA [id number] [place] [address] [place] CO2 [Moles/Vol] 26 mmol/L Normal 22-30 [facility] Comment on above: Order Comment: Speci men Type: BLOOD SPECIMENOrdering Facility: [facility] Address: [address] [place] [address] Performed By: #### 2 4320-2, 2884-2 ####[facility] LABIA [id number] [place] [address] [place] Creatinine [Mass/Vol] 2.07 mg/dL High 0.73-1.22 [facility] Comment on above: Order Comment: Speci men Type: BLOOD SPECIMENOrdering Facility: [facility] Address: [address] [place] [address] Performed By: #### 2 4320-2, 2 ####[facility]ITAL[facility] [id number] [place] [address] [place] Creatinine and Glomerular filtration rate.predicted panel (S/P/Bld) 35 mL/min/1.73m??? Low >=60 [facility] Comment on above: Order Comment: Speci men Type: BLOOD SPECIMENOrdering Facility: [facility] Address: [address] [place] [address] Result Comment: Syl mated Glomerular Filtration Rate (eGFR) is calculated using the 2020 CKD-EPI creatinine equation. This equation utilizes serum creatinine, sex, and age as parameters. The creatinine assay has traceable calibration to isotope dilution-mass spectrometry. Refer to KDIGO guidelines for clinical interpretation. In patients with unstable renal function, e.g. those with acute kidney injury, the eGFR may not accurately reflect actual GFR. Performed By: #### 2 432-2, 2884-2 ####[facility] LABIA [id number] [place] [address] [place] Glucose [Mass/Vol] 123 mg/dL High 74-99 [facility] Comment on above: Order Comment: Speci men Type: BLOOD SPECIMENOrdering Facility: [facility] Address: [address] [place] [address] Result Comment: The [place] Diabetes Association (ADA) provides guidance for cutoff values for fasting glucose and random glucose. The ADA defines fasting as no caloric intake for at least 8 hours. Fasting plasma glucose results between 100 to 125 mg/dL indicate increased risk for diabetes (prediabetes).Fasting plasma glucose results greater than or equal to 126 mg/dL meet the criteria for diagnosis of diabetes. In the absence of unequivocal hyperglycemia, results should be confirmed by repeat testing. In a patient with classic symptoms of hyperglycemia or hyperglycemic crisis, random plasma glucose results greater than or equal to 200 mg/dL meet the criteria for diagnosis of diabetes.Reference: Standards of Medical Care in Diabetes 2016, [place] [employer]. Diabetes Care. 2016.39(Suppl 1). Performed By: #### 2 4321-2, 288-2 ####[facility] LABCLIA [id number] [place] [address] [place] Potassium [Moles/Vol] 5.0 mmol/L Normal 3.7-5.1 [facility] Comment on above: Order Comment: Reneei kaci Type: BLOOD SPECIMENOrdering Facility: [facility] Address: [address] [place] [address] Performed By: #### 2 4321-2, 288-2 ####[facility] LABCLIA [id number] [place] [address] [place] Sodium [Moles/Vol] 134 mmol/L Low 136-144 [facility] Comment on above: Order Comment: Speci men Type: BLOOD SPECIMENOrdering Facility: [facility] Address: [address] [place] [address] Performed By: #### 2 4321-2, 288-2 ####[facility] LABCLIA [id number] [place] [address] [place] Urea nitrogen [Mass/Vol] 57 mg/dL High 9-24 [facility] Comment on above: Order Comment: Speci men Type: BLOOD SPECIMENOrdering Facility: [facility] Address: [address] [place] [address] Performed By: #### 2 4321-2, 2885-2 ####[facility] LABCLIA [id number] [place] [address] [place] CBC panel Auto (Bld)on 03-23 Erythrocyte distribution width (RBC) [Ratio] 20.3 % High 11.5-15.0 [facility] Comment on above: Order Comment: Speci men Type: BLOOD SPECIMENOrdering Facility: [facility] Address: [address] [place] [address] Performed By: #### 5 8410-2 ####[facility] LABIA [id number] [place] [address] [place] Hematocrit (Bld) [Volume fraction] 36.1 % Low 39.0-51.0 [facility] Comment on above: Order Comment: Speci men Type: BLOOD SPECIMENOrdering Facility: [facility] Address: [address] [place] [address] Performed By: #### 5 8410-2 ####[facility] LABIA [id number] [place] [address] [place] Hemoglobin (Bld) [Mass/Vol] 11.1 g/dL Low 13.0-17.0 [facility] Comment on above: Order Comment: Speci men Type: BLOOD SPECIMENOrdering Facility: [facility] Address: [address] [place] [address] Performed By: #### 5 8410-2 ####[facility] LABIA [id number] [place] [address] [place] MCH (RBC) [Entitic mass] 24.8 pg Low 26.0-34.0 [facility] Comment on above: Order Comment: Speci men Type: BLOOD SPECIMENOrdering Facility: [facility] Address: [address] Performed By: #### 5 8410-2 ####[facility] [id number] [address] [place] [facility] MCHC (RBC) [Mass/Vol] 30.7 g/dL Normal 30.5-36.0 [facility] Comment on above: Order Comment: Speci men Type: BLOOD SPECIMENOrdering Facility: [facility] Address: [address] [place] [address] Performed By: #### 5 8410-2 ####[facility] [id number] [place] [address] [place] MCV (RBC) [Entitic vol] 80.6 fL Normal 80.0-100.0 [facility] Comment on above: Order Comment: Speci men Type: BLOOD SPECIMENOrdering Facility: [facility] Address: [address] Performed By: #### 5 8410-2 ####[facility] [id number] [place] [address] [place] Nucleated RBC (Bld) [#/Vol] 10*3/uL Normal <0.01 [facility] Comment on above: Order Comment: Speci men Type: BLOOD SPECIMENOrdering Facility: [facility] Address: [address] [place], [place] [address] Performed By: #### 5 8410-2 ####[facility] [id number] [place] [address] [place] Platelet mean volume (Bld) [Entitic vol] 9.8 fL Normal 9.0-12.7 [facility] Comment on above: Order Comment: Speci men Type: BLOOD SPECIMENOrdering Facility: [facility] Address: [address] [place], [place] [address] Performed By: #### 5 8410-2 ####[facility] LABIA [id number] [place] [address] [place] Platelets (Bld) [#/Vol] 249 10*3/uL Normal 150-400 [facility] Comment on above: Order Comment: Speci men Type: BLOOD SPECIMENOrdering Facility: [facility] Address: [address] [place] [address] Performed By: #### 5 8410-2 ####[facility] LABIA [id number] [place] [address] [place] RBC (Bld) [#/Vol] 4.48 10*6/uL Normal 4.20-6.00 [facility] Comment on above: Order Comment: Speci men Type: BLOOD SPECIMENOrdering Facility: [facility] Address: [address] [place] [address] Performed By: #### 5 8410-2 ####[facility] [id number] [place] [address] [place] WBC (Bld) [#/Vol] 8.92 10*3/uL Normal 3.70-11.00 [facility] Comment on above: Order Comment: Speci men Type: BLOOD SPECIMENOrdering Facility: [facility] Address: [address] [place], [place] [address] Performed By: #### 5 8410-2 ####[facility] [id number] [place] [id number] [place] CONSULTon 03-23-2023 CONSULT Normal [facility] CONSULT Normal [facility] CRP SerPl-mCncon 03-23-2023 CRP [Mass/Vol] 3.0 mg/dL High <0.9 [facility] Comment on above: Order Comment: Speci men Type: BLOOD SPECIMENOrdering Facility: [facility] Address: [address] [place], [place] [address] Performed By: #### 1 988-5 ####[facility] LABCLIA [id number] [place] [address] [place] NM PET/CT CARD PERF REST/STR ESSon 03-23-2023 NM PET/CT CARD PERF REST/STRESS Normal [facility] NM PET/CT CARDIAC VIABILITYo n 03-23-2023 NM PET/CT CARDIAC VIABILITY Normal [facility] NURSING PROGon 03-23-2023 NURSING PROG Normal [facility] PT panel Coag (PPP)on 2022 INR Coag (PPP) [Relative time] 2.1 {INR} High 0.9-1.3 [facility] Comment on above: Order Comment: Joseline clemons Type: BLOOD SPECIMENOrdering Facility: [facility] Address: [address] [place], [place] [id number] Result Comment: Baylee min K Antagonist (VKA) Therapeutic Range: INR 2 to 3 (Target INR of 2.5)Note: For patients treated with VKA drugs, such as warfarin, the [place] [employer] 2012 Guideline recommends a therapeutic INR range of 2 to 3 (target INR of 2.5). This recommendation includes high-risk patients with antiphospholipid syndrome with previous arterial or venous thromboembolism, current-generation mechanical or bioprosthetic aortic heart valve replacement.Note: Patients with mechanical aortic valve replacement and additional risk factors for thromboembolic events (atrial fibrillation, previous thromboembolism, LV dysfunction, hypercoagulable conditions) or an older generation mechanical AVR (i.e., ball in-Cage) or any mechanical MVR should have a INR therapeutic range of 2.5 to 3.5 (target INR of 3).Geovanna NEGRON, et al. Chest 2012, 141:7S-47STrudy RA, et al. [facility] 2017, 70: 252-289 Performed By: #### 3 4528-0 ####[facility] LABIA [id number] [place] [id number] [place] PT Coag (PPP) [Time] 20.8 s High 9.7-13.0 [facility] Comment on above: Order Comment: Speci men Type: BLOOD SPECIMENOrdering Facility: [facility] Address: [address] Performed By: #### 3 4528-0 ####[facility] LABCLIA [id number] [place] [address] [place] Prot SerPl-mCncon 03-23-2023 Protein [Mass/Vol] 6.3 g/dL Normal 6.3-8.0 [facility] Comment on above: Order Comment: Speci men Type: BLOOD SPECIMENOrdering Facility: [facility] Address: [address] [place] [address] Performed By: #### 2 4321-2, 2885-2 ####[facility] LABCLIA [id number] [place] [address] [place] XR FOOT 3V AP/LAT/OBL RTon 0 03-23-2023 XR FOOT 3V AP/LAT/OBL RT Normal [facility] Bacteria Wnd Culton 03-22-20 23 Bacteria identified Cx Nom (Wound) Abnormal [facility] Comment on above: Performed By: #### 6 462-6 ####[facility] LABIA [id number] [place] [address] [place] Basic metabolic 2000 panelon 03-22-2023 Anion gap [Moles/Vol] 13 mmol/L Normal 9-18 [facility] Comment on above: Order Comment: Speci men Type: BLOOD SPECIMENOrdering Facility: [facility] Address: [address] Performed By: #### 2 4321-2 ####[facility] LABIA [id number] [place] [address] [place] Calcium [Mass/Vol] 9.6 mg/dL Normal 8.5-10.2 [facility] Comment on above: Order Comment: Speci men Type: BLOOD SPECIMENOrdering Facility: [facility] Address: [address] [place], [place] [address] Performed By: #### 2 4321-2 ####[facility] LABCLIA [id number] [place] [address] [place] Chloride [Moles/Vol] 94 mmol/L Low 97-105 [facility] Comment on above: Order Comment: Speci men Type: BLOOD SPECIMENOrdering Facility: [facility] Address: [address] [place] [address] Performed By: #### 2 4321-2 ####[facility] LABCLIA [id number] [place] [address] [place] CO2 [Moles/Vol] 25 mmol/L Normal 22-30 [facility] Comment on above: Order Comment: Speci men Type: BLOOD SPECIMENOrdering Facility: [facility] Address: [address] [place] [address] Performed By: #### 2 4321-2 ####[facility] LABCLIA [id number] [place] [address] [place] Creatinine [Mass/Vol] 2.20 mg/dL High 0.73-1.22 [facility] Comment on above: Order Comment: Speci men Type: BLOOD SPECIMENOrdering Facility: [facility] Address: [address] [place] [address] Performed By: #### 2 4321-2 ####[facility] LABIA [id number] [address] OF [facility] ESTIMATED GLOMERULAR FILTRATION RATE 32 mL/min/1.73m??? Low >=60 [facility] Comment on above: Order Comment: Speci men Type: BLOOD SPECIMENOrdering Facility: [facility] Address: [address] [place] [address] Result Comment: Syl mated Glomerular Filtration Rate (eGFR) is calculated using the 2020 CKD-EPI creatinine equation. This equation utilizes serum creatinine, sex, and age as parameters. The creatinine assay has traceable calibration to isotope dilution-mass spectrometry. Refer to KDIGO guidelines for clinical interpretation. In patients with unstable renal function, e.g. those with acute kidney injury, the eGFR may not accurately reflect actual GFR. Performed By: #### 2 4321-2 ####[facility] LABIA [id number] [place] [address] [place] Glucose [Mass/Vol] 120 mg/dL High 74-99 [facility] Comment on above: Order Comment: Speci men Type: BLOOD SPECIMENOrdering Facility: [facility] Address: [address] [place] [address] Result Comment: The [place] [employer] (ADA) provides guidance for cutoff values for fasting glucose and random glucose. The ADA defines fasting as no caloric intake for at least 8 hours. Fasting plasma glucose results between 100 to 125 mg/dL indicate increased risk for diabetes (prediabetes).Fasting plasma glucose results greater than or equal to 126 mg/dL meet the criteria for diagnosis of diabetes. In the absence of unequivocal hyperglycemia, results should be confirmed by repeat testing. In a patient with classic symptoms of hyperglycemia or hyperglycemic crisis, random plasma glucose results greater than or equal to 200 mg/dL meet the criteria for diagnosis of diabetes.Reference: Standards of Medical Care in Diabetes 2016, [place] [employer]. Diabetes Care. 2016.39(Suppl 1). Performed By: #### 2 4321-2 ####[facility] LABIA [id number] [place] [address] [place] Potassium [Moles/Vol] 4.4 mmol/L Normal 3.7-5.1 [facility] Comment on above: Order Comment: Speci men Type: BLOOD SPECIMENOrdering Facility: [facility] Address: [address] [place] [phone] Performed By: #### 2 4321-2 ####[facility] LABIA [id number] [place] [address] [place] Sodium [Moles/Vol] 132 mmol/L Low 136-144 [facility] Comment on above: Order Comment: Speci men Type: BLOOD SPECIMENOrdering Facility: [facility] Address: [address] Performed By: #### 2 4321-2 ####[facility] LABCLIA [id number] [place] [address] [place] Urea nitrogen [Mass/Vol] 54 mg/dL High 9-24 [facility] Comment on above: Order Comment: Speci men Type: BLOOD SPECIMENOrdering Facility: [facility] Address: [address] [place], [place] [address] Performed By: #### 2 4321-2 ####[facility] LABIA [id number] [address] [place] CASE MANAGEMon 03-22-2023 CASE MANAGEM Normal [facility] CBC panel Auto (Bld)on 03-22 Erythrocyte distribution width (RBC) [Ratio] 20.4 % High 11.5-15.0 [facility] Comment on above: Order Comment: Speci men Type: BLOOD SPECIMENOrdering Facility: [facility] Address: [address] [place], [place] [address] Performed By: #### 5 8410-2 ####[facility] LABIA [id number] [place] [address] [place] Hematocrit (Bld) [Volume fraction] 36.5 % Low 39.0-51.0 [facility] Comment on above: Order Comment: Speci men Type: BLOOD SPECIMENOrdering Facility: [facility] Address: [address] [place], [place] [address] Performed By: #### 5 8410-2 ####[facility] LABIA [id number] [place] [address] [place] Hemoglobin (Bld) [Mass/Vol] 11.2 g/dL Low 13.0-17.0 [facility] Comment on above: Order Comment: Speci men Type: BLOOD SPECIMENOrdering Facility: [facility] Address: [address] [place], [place] [address] Performed By: #### 5 8410-2 ####[facility] LABIA [id number] [address] [place] [facility] MCH (RBC) [Entitic mass] 24.8 pg Low 26.0-34.0 [facility] Comment on above: Order Comment: Speci men Type: BLOOD SPECIMENOrdering Facility: [facility] Address: [address] [place], [place] [address] Performed By: #### 5 8410-2 ####[facility] LABIA [id number] [place] [address] [place] MCHC (RBC) [Mass/Vol] 30.7 g/dL Normal 30.5-36.0 [facility] Comment on above: Order Comment: Speci men Type: BLOOD SPECIMENOrdering Facility: [facility] Address: [address] [place], [place] [address] Performed By: #### 5 8410-2 ####[facility] [id number] [place] [address] [place] MCV (RBC) [Entitic vol] 80.9 fL Normal 80.0-100.0 [facility] Comment on above: Order Comment: Speci men Type: BLOOD SPECIMENOrdering Facility: [facility] Address: [address] [place], [place] [address] Performed By: #### 5 8410-2 ####[facility] LABIA [id number] [address] [place] Nucleated RBC (Bld) [#/Vol] 0.02 10*3/uL High <0.01 [facility] Comment on above: Order Comment: Speci men Type: BLOOD SPECIMENOrdering Facility: [facility] Address: [address] [place], [place] [address] Performed By: #### 5 8410-2 ####[facility] LABIA [id number] [place] [address] [place] Platelet mean volume (Bld) [Entitic vol] 10.0 fL Normal 9.0-12.7 [facility] Comment on above: Order Comment: Speci men Type: BLOOD SPECIMENOrdering Facility: [facility] Address: [address] [place] [address] Performed By: #### 5 8410-2 ####[facility] LABCLIA [id number] [place] [address] [place] Platelets (Bld) [#/Vol] 244 10*3/uL Normal 150-400 [facility] Comment on above: Order Comment: Speci men Type: BLOOD SPECIMENOrdering Facility: [facility] Address: [address] [place] [address] Performed By: #### 5 8410-2 ####[facility] LABCLIA [id number] [place] [address] [place] RBC (Bld) [#/Vol] 4.51 10*6/uL Normal 4.20-6.00 [facility] Comment on above: Order Comment: Speci men Type: BLOOD SPECIMENOrdering Facility: [facility] Address: [address] [place], [place] [address] Performed By: #### 5 8410-2 ####[facility] LABCLIA [id number] [place] [address] [place] WBC (Bld) [#/Vol] 8.57 10*3/uL Normal 3.70-11.00 [facility] Comment on above: Order Comment: Speci men Type: BLOOD SPECIMENOrdering Facility: [facility] Address: [address] [place], [place] [address] Performed By: #### 5 8410-2 ####[facility] LABCLIA [id number] [place] [address] [place] ALBUMIN/CREAT RATIO RND URon 03-21-2023 Albumin DL <= 20 mg/L (U) [Mass/Vol] 32.9 mg/L Normal [facility] Comment on above: Order Comment: Speci men Type: URINE SPECIMENOrdering Facility: [facility] Address: [address] [place] [address] Performed By: #### U ACR, [id number] ####[facility] LABCLIA [id number] [place] [address] [place] Albumin/Creatinine (U) [Mass ratio] 110 mg/g High <30 [facility] Comment on above: Order Comment: Speci men Type: URINE SPECIMENOrdering Facility: [facility] Address: [address] [place] [address] Result Comment: Adul t Male and Female Nephrotic Criteria:<30 mg/g is considered normal to mildly epocizmux55-937 mg/g is considered moderately increased>300 mg/g is considered severely increasedKDIGO. (2013). KDIGO 2012 Clinical Practice Guideline for the Evaluation and Management of Chronic Kidney Disease. Official Journal of the International Society of Nephrology, 3(1), 1-150. Performed By: #### U ACR, [id number] ####[facility] LABCLIA [id number] [place] [address] [place] Creatinine (U) [Mass/Vol] 29.9 mg/dL Normal 20.0-300.0 [facility] Comment on above: Order Comment: Speci men Type: URINE SPECIMENOrdering Facility: [facility] Address: [address] [place] [address] Performed By: #### U ACR, [id number] ####[facility] LABCLIA [id number] [place] [address] [place] Bacteria Bld Culton 03-21-20 23 Bacteria identified Cx Nom (Bld) CULTURE, BLOOD: No growth 5 days Normal [facility] Comment on above: Performed By: #### 6 00-7 ####[facility] LABCLIA [id number] [place] [address] [place] Basic metabolic 2000 panelon 03-21-2023 Anion gap [Moles/Vol] 15 mmol/L Normal 9-18 [facility] Comment on above: Order Comment: Speci men Type: BLOOD SPECIMENOrdering Facility: [facility] Address: [address] [place] [address] Performed By: #### 2 4321-2, 3016-3, [id number], 2532-0 ####[facility] LABCLIA [id number] [place] [address] [place] Calcium [Mass/Vol] 9.5 mg/dL Normal 8.5-10.2 [facility] Comment on above: Order Comment: Speci men Type: BLOOD SPECIMENOrdering Facility: [facility] Address: [address] [place] [address] Performed By: #### 2 4321-2, 3016-3, [id number], 2532-0 ####[facility] LABCLIA [id number] [place] [address] [place] Chloride [Moles/Vol] 95 mmol/L Low 97-105 [facility] Comment on above: Order Comment: Speci men Type: BLOOD SPECIMENOrdering Facility: [facility] Address: [address] [place], [place] [address] Performed By: #### 2 4321-2, 3016-3, [id number], 2532-0 ####[facility] LABCLIA [id number] [place] [address] [place] CO2 [Moles/Vol] 25 mmol/L Normal 22-30 [facility] Comment on above: Order Comment: Speci men Type: BLOOD SPECIMENOrdering Facility: [facility] Address: [address] [place] [address] Performed By: #### 2 4321-2, 3016-3, [id number], 2532-0 ####[facility] LABCLIA [id number] [address] [address] [place] Creatinine [Mass/Vol] 2.13 mg/dL High 0.73-1.22 [facility] Comment on above: Order Comment: Joseline clemons Type: BLOOD SPECIMENOrdering Facility: [facility] Address: [address] [id number] Performed By: #### 2 4321-2, 3016-3, [id number], 2532-0 ####[facility] LABCLIA [id number] [address] [place] ESTIMATED GLOMERULAR FILTRATION RATE 34 mL/min/1.73m??? Low >=60 [facility] Comment on above: Order Comment: Joseline clemons Type: BLOOD SPECIMENOrdering Facility: [facility] Address: [address] [address] Result Comment: Syl mated Glomerular Filtration Rate (eGFR) is calculated using the 2020 CKD-EPI creatinine equation. This equation utilizes serum creatinine, sex, and age as parameters. The creatinine assay has traceable calibration to isotope dilution-mass spectrometry. Refer to KDIGO guidelines for clinical interpretation. In patients with unstable renal function, e.g. those with acute kidney injury, the eGFR may not accurately reflect actual GFR. Performed By: #### 2 4321-2, 3016-3, [id number], 2532-0 ####[facility] LABCLIA [id number] [place] [id number] [place] Glucose [Mass/Vol] 49 mg/dL Low 74-99 [facility] Comment on above: Order Comment: Joseline clemons Type: BLOOD SPECIMENOrdering Facility: [facility] Address: [address] [address] Result Comment: The [place] Diabetes [employer] (ADA) provides guidance for cutoff values for fasting glucose and random glucose. The ADA defines fasting as no caloric intake for at least 8 hours. Fasting plasma glucose results between 100 to 125 mg/dL indicate increased risk for diabetes (prediabetes).Fasting plasma glucose results greater than or equal to 126 mg/dL meet the criteria for diagnosis of diabetes. In the absence of unequivocal hyperglycemia, results should be confirmed by repeat testing. In a patient with classic symptoms of hyperglycemia or hyperglycemic crisis, random plasma glucose results greater than or equal to 200 mg/dL meet the criteria for diagnosis of diabetes.Reference: Standards of Medical Care in Diabetes 2016, [place] [employer]. Diabetes Care. 2016.39(Suppl 1). Performed By: #### 2 4321-2, 3016-3, [id number], 2532-0 ####[facility] LABCLIA [id number] [place] [address] [place] Potassium [Moles/Vol] 4.6 mmol/L Normal 3.7-5.1 [facility] Comment on above: Order Comment: Speci men Type: BLOOD SPECIMENOrdering Facility: [facility] Address: [address] [address] Performed By: #### 2 4321-2, 6-3, [id number], 2532-0 ####[facility] LABCLIA [id number] [place] [address] [place] Sodium [Moles/Vol] 135 mmol/L Low 136-144 [facility] Comment on above: Order Comment: Speci men Type: BLOOD SPECIMENOrdering Facility: [facility] Address: [address] [address] Performed By: #### 2 4321-2, 6-3, [id number], 2532-0 ####[facility] LABCLIA [id number] [place] [address] [place] Urea nitrogen [Mass/Vol] 52 mg/dL High 9-24 [facility] Comment on above: Order Comment: Speci men Type: BLOOD SPECIMENOrdering Facility: [facility] Address: [address] [address] Performed By: #### 2 4321-2, 3016-3, [id number], 2532-0 ####[facility] LABCLIA [id number] [place] [id number] [place] CASE MGT INIT ASSESon 2022 CASE MGT INIT ASSES Normal [facility] CBC W Auto Differential pane l (Bld)on 03-21-2023 Basophils (Bld) [#/Vol] 0.07 10*3/uL Normal <0.11 [facility] Comment on above: Order Comment: Speci men Type: BLOOD SPECIMENOrdering Facility: [facility] Address: [address] [place] [address] Performed By: #### 5 7021-8 ####[facility] LABCLIA [id number] [place] [address] [place] Basophils/100 WBC (Bld) 0.8 % Normal [facility] Comment on above: Order Comment: Speci men Type: BLOOD SPECIMENOrdering Facility: [facility] Address: [address] [place] [address] Performed By: #### 5 7021-8 ####[facility] LABCLIA [id number] [place] [address] [place] Differential cell count method Nom (Bld) Auto Normal [facility] Comment on above: Order Comment: Speci men Type: BLOOD SPECIMENOrdering Facility: [facility] Address: [address] [place] [address] Performed By: #### 5 7021-8 ####[facility] LABCLIA [id number] [place] [address] [place] Eosinophils (Bld) [#/Vol] 0.19 10*3/uL Normal <0.46 [facility] Comment on above: Order Comment: Speci men Type: BLOOD SPECIMENOrdering Facility: [facility] Address: [address] [place] [address] Performed By: #### 5 7021-8 ####[facility] LABCLIA [id number] [place] [address] [place] Eosinophils/100 WBC (Bld) 2.2 % Normal [facility] Comment on above: Order Comment: Speci men Type: BLOOD SPECIMENOrdering Facility: [facility] Address: [address] [place] [address] Performed By: #### 5 7021-8 ####[facility] LABCLIA [id number] [place] [address] [place] Erythrocyte distribution width (RBC) [Ratio] 20.3 % High 11.5-15.0 [facility] Comment on above: Order Comment: Speci men Type: BLOOD SPECIMENOrdering Facility: [facility] Address: [address] [place] [address] Performed By: #### 5 7021-8 ####[facility] LABIA [id number] [place] [address] [place] Hematocrit (Bld) [Volume fraction] 36.3 % Low 39.0-51.0 [facility] Comment on above: Order Comment: Speci men Type: BLOOD SPECIMENOrdering Facility: [facility] Address: [address] [place] [address] Performed By: #### 5 7021-8 ####[facility] LABIA [id number] [address] [place] Hemoglobin (Bld) [Mass/Vol] 11.2 g/dL Low 13.0-17.0 [facility] Comment on above: Order Comment: Speci men Type: BLOOD SPECIMENOrdering Facility: [facility] Address: [address] [place], [place] [address] Performed By: #### 5 7021-8 ####[facility] LABIA [id number] [place] [address] [place] Immature granulocytes (Bld) [#/Vol] 0.04 10*3/uL Normal <0.10 [facility] Comment on above: Order Comment: Speci men Type: BLOOD SPECIMENOrdering Facility: [facility] Address: [address] Performed By: #### 5 7021-8 ####[facility] LABIA [id number] [address] Immature granulocytes/100 WBC (Bld) 0.5 % Normal [facility] Comment on above: Order Comment: Speci men Type: BLOOD SPECIMENOrdering Facility: [facility] Address: [address] [address] Performed By: #### 5 7021-8 ####[facility] LABIA [id number] [place] [address] [place] Lymphocytes (Bld) [#/Vol] 0.75 10*3/uL Low 1.00-4.00 [facility] Comment on above: Order Comment: Speci men Type: BLOOD SPECIMENOrdering Facility: [facility] Address: [address] [address] Performed By: #### 5 7021-8 ####[facility] [id number] [address] Lymphocytes/100 WBC (Bld) 8.9 % Normal [facility] Comment on above: Order Comment: Speci men Type: BLOOD SPECIMENOrdering Facility: [facility] Address: [address] [place], [place] [address] Performed By: #### 5 7021-8 ####[facility] LABIA [id number] [place] [address] [place] MCH (RBC) [Entitic mass] 24.9 pg Low 26.0-34.0 [facility] Comment on above: Order Comment: Speci men Type: BLOOD SPECIMENOrdering Facility: [facility] Address: [address] [address] Performed By: #### 5 7021-8 ####[facility] LABIA [id number] [place] [facility] MCHC (RBC) [Mass/Vol] 30.9 g/dL Normal 30.5-36.0 [facility] Comment on above: Order Comment: Speci men Type: BLOOD SPECIMENOrdering Facility: [facility] Address: [address] [place] [address] Performed By: #### 5 7021-8 ####[facility] LABIA [id number] [address] [place] MCV (RBC) [Entitic vol] 80.7 fL Normal 80.0-100.0 [facility] Comment on above: Order Comment: Speci men Type: BLOOD SPECIMENOrdering Facility: [facility] Address: [address] [place] [address] Performed By: #### 5 7021-8 ####[facility] LABIA [id number] [place] [address] [place] Monocytes (Bld) [#/Vol] 0.70 10*3/uL Normal <0.87 [facility] Comment on above: Order Comment: Speci men Type: BLOOD SPECIMENOrdering Facility: [facility] Address: [address] [place] [address] Performed By: #### 5 7021-8 ####[facility] LABIA [id number] [place] [address] [place] Monocytes/100 WBC (Bld) 8.3 % Normal [facility] Comment on above: Order Comment: Speci men Type: BLOOD SPECIMENOrdering Facility: [facility] Address: [address] [place], [place] [address] Performed By: #### 5 7021-8 ####[facility] LABCLIA [id number] [place] [address] [place] Neutrophils (Bld) [#/Vol] 6.71 10*3/uL Normal 1.45-7.50 [facility] Comment on above: Order Comment: Speci men Type: BLOOD SPECIMENOrdering Facility: [facility] Address: [address] Performed By: #### 5 7021-8 ####[facility] LABCLIA [id number] [address] STATES [facility] Neutrophils/100 WBC (Bld) 79.3 % Normal [facility] Comment on above: Order Comment: Speci men Type: BLOOD SPECIMENOrdering Facility: [facility] Address: [address] Performed By: #### 5 7021-8 ####[facility] LABIA [id number] [place] [address] [place] Nucleated RBC (Bld) [#/Vol] 0.03 10*3/uL High <0.01 [facility] Comment on above: Order Comment: Speci men Type: BLOOD SPECIMENOrdering Facility: [facility] Address: [address] Performed By: #### 5 7021-8 ####[facility] LABIA [id number] [place] [address] [place] Nucleated RBC/100 WBC (Bld) [Ratio] 0.4 /100 WBC Normal [facility] Comment on above: Order Comment: Speci men Type: BLOOD SPECIMENOrdering Facility: [facility] Address: [address] Performed By: #### 5 7021-8 ####[facility] LABIA [id number] [place] [address] [place] Platelet mean volume (Bld) [Entitic vol] 9.4 fL Normal 9.0-12.7 [facility] Comment on above: Order Comment: Speci men Type: BLOOD SPECIMENOrdering Facility: [facility] Address: [address] Performed By: #### 5 7021-8 ####[facility] LABCLIA [id number] [place] [address] [place] Platelets (Bld) [#/Vol] 255 10*3/uL Normal 150-400 [facility] Comment on above: Order Comment: Speci men Type: BLOOD SPECIMENOrdering Facility: [facility] Address: [address] [place] [address] Performed By: #### 5 7021-8 ####[facility] LABIA [id number] [place] [address] [place] RBC (Bld) [#/Vol] 4.50 10*6/uL Normal 4.20-6.00 [facility] Comment on above: Order Comment: Speci men Type: BLOOD SPECIMENOrdering Facility: [facility] Address: [address] [place] [address] Performed By: #### 5 7021-8 ####[facility] LABIA [id number] [place] [address] [place] WBC (Bld) [#/Vol] 8.46 10*3/uL Normal 3.70-11.00 [facility] Comment on above: Order Comment: Speci men Type: BLOOD SPECIMENOrdering Facility: [facility] Address: [address] [place] [address] Performed By: #### 5 7021-8 ####[facility] LABIA [id number] [address] [place] [facility] CBC panel Auto (Bld)on 03-21 Erythrocyte distribution width (RBC) [Ratio] 20.3 % High 11.5-15.0 [facility] Comment on above: Order Comment: Speci men Type: BLOOD SPECIMENOrdering Facility: [facility] Address: [address] [place] [address] Performed By: #### 5 8410-2 ####[facility] LABIA [id number] [address] [place] Hematocrit (Bld) [Volume fraction] 38.6 % Low 39.0-51.0 [facility] Comment on above: Order Comment: Speci men Type: BLOOD SPECIMENOrdering Facility: [facility] Address: [address] [place] [address] Performed By: #### 5 8410-2 ####[facility] LABCLIA [id number] [address] [place] Hemoglobin (Bld) [Mass/Vol] 11.6 g/dL Low 13.0-17.0 [facility] Comment on above: Order Comment: Speci men Type: BLOOD SPECIMENOrdering Facility: [facility] Address: [address] [place] [address] Performed By: #### 5 8410-2 ####[facility] LABCLIA [id number] [address] [place] [facility] MCH (RBC) [Entitic mass] 24.7 pg Low 26.0-34.0 [facility] Comment on above: Order Comment: Speci men Type: BLOOD SPECIMENOrdering Facility: [facility] Address: [address] [place] [address] Performed By: #### 5 8410-2 ####[facility] LABIA [id number] [address] [place] MCHC (RBC) [Mass/Vol] 30.1 g/dL Low 30.5-36.0 [facility] Comment on above: Order Comment: Speci men Type: BLOOD SPECIMENOrdering Facility: [facility] Address: [address] [place], [place] [address] Performed By: #### 5 8410-2 ####[facility] LABCLIA [id number] [place] [address] [place] MCV (RBC) [Entitic vol] 82.1 fL Normal 80.0-100.0 [facility] Comment on above: Order Comment: Speci men Type: BLOOD SPECIMENOrdering Facility: [facility] Address: [address] [place], [place] [address] Performed By: #### 5 8410-2 ####[facility] LABIA [id number] [place] [address] [place] Nucleated RBC (Bld) [#/Vol] 0.03 10*3/uL High <0.01 [facility] Comment on above: Order Comment: Speci men Type: BLOOD SPECIMENOrdering Facility: [facility] Address: [address] [place], [place] [address] Performed By: #### 5 8410-2 ####[facility] LABIA [id number] [place] [address] [place] Platelet mean volume (Bld) [Entitic vol] 9.5 fL Normal 9.0-12.7 [facility] Comment on above: Order Comment: Speci men Type: BLOOD SPECIMENOrdering Facility: [facility] Address: [address] [place], [place] [address] Performed By: #### 5 8410-2 ####[facility] LABIA [id number] [place] [address] [place] Platelets (Bld) [#/Vol] 265 10*3/uL Normal 150-400 [facility] Comment on above: Order Comment: Speci men Type: BLOOD SPECIMENOrdering Facility: [facility] Address: [address] [place], [place] [address] Performed By: #### 5 8410-2 ####[facility] LABIA [id number] [place] [address] [place] RBC (Bld) [#/Vol] 4.70 10*6/uL Normal 4.20-6.00 [facility] Comment on above: Order Comment: Speci men Type: BLOOD SPECIMENOrdering Facility: [facility] Address: [address] Performed By: #### 5 8410-2 ####[facility] LABCLIA [id number] [place] [address] [place] WBC (Bld) [#/Vol] 8.61 10*3/uL Normal 3.70-11.00 [facility] Comment on above: Order Comment: Speci men Type: BLOOD SPECIMENOrdering Facility: [facility] Address: [address] Performed By: #### 5 8410-2 ####[facility] LABIA [id number] [place] [address] [place] CRP SerPl-mCncon 03-21-2023 CRP [Mass/Vol] 2.1 mg/dL High <0.9 [facility] Comment on above: Order Comment: Speci men Type: BLOOD SPECIMENOrdering Facility: [facility] Address: [address] [place], [place] [address] Performed By: #### 1 988-5 ####[facility] LABIA [id number] [place] [address] [place] Comprehensive metabolic 2000 panelon 03-21-2023 Albumin [Mass/Vol] 3.6 g/dL Low 3.9-4.9 [facility] Comment on above: Order Comment: Speci men Type: BLOOD SPECIMENOrdering Facility: [facility] Address: [address] Performed By: #### 2 4323-8 ####[facility] LABIA [id number] [place] [address] [place] ALP [Catalytic activity/Vol] 159 U/L High 38-113 [facility] Comment on above: Order Comment: Speci men Type: BLOOD SPECIMENOrdering Facility: [facility] Address: [address] Performed By: #### 2 4323-8 ####[facility] LABCLIA [id number] [place] [address] [place] ALT [Catalytic activity/Vol] 17 U/L Normal 10-54 [facility] Comment on above: Order Comment: Speci men Type: BLOOD SPECIMENOrdering Facility: [facility] Address: [address] [place] [address] Performed By: #### 2 4323-8 ####[facility] LABCLIA [id number] [place] [address] [place] Anion gap [Moles/Vol] 12 mmol/L Normal 9-18 [facility] Comment on above: Order Comment: Speci men Type: BLOOD SPECIMENOrdering Facility: [facility] Address: [address] [place] [address] Performed By: #### 2 4323-8 ####[facility] LABCLIA [id number] [place] [address] [place] AST [Catalytic activity/Vol] 19 U/L Normal 14-40 [facility] Comment on above: Order Comment: Speci men Type: BLOOD SPECIMENOrdering Facility: [facility] Address: [address] [place] [address] Performed By: #### 2 4323-8 ####[facility] LABCLIA [id number] [place] [address] [place] Bilirubin [Mass/Vol] 2.2 mg/dL High 0.2-1.3 [facility] Comment on above: Order Comment: Speci men Type: BLOOD SPECIMENOrdering Facility: [facility] Address: [address] [place], [place] [address] Performed By: #### 2 4323-8 ####[facility] LABCLIA [id number] [place] [address] [place] Calcium [Mass/Vol] 9.6 mg/dL Normal 8.5-10.2 [facility] Comment on above: Order Comment: Speci men Type: BLOOD SPECIMENOrdering Facility: [facility] Address: [address] [address] Performed By: #### 2 4323-8 ####[facility] LABCLIA [id number] [place] [address] [place] Chloride [Moles/Vol] 96 mmol/L Low 97-105 [facility] Comment on above: Order Comment: Speci men Type: BLOOD SPECIMENOrdering Facility: [facility] Address: [address] [address] Performed By: #### 2 4323-8 ####[facility] LABCLIA [id number] [place] [address] [place] CO2 [Moles/Vol] 26 mmol/L Normal 22-30 [facility] Comment on above: Order Comment: Speci men Type: BLOOD SPECIMENOrdering Facility: [facility] Address: [address] [address] Performed By: #### 2 4323-8 ####[facility] LABCLIA [id number] [place] [address] [place] Creatinine [Mass/Vol] 2.11 mg/dL High 0.73-1.22 [facility] Comment on above: Order Comment: Speci men Type: BLOOD SPECIMENOrdering Facility: [facility] Address: [address] Performed By: #### 2 4323-8 ####[facility] LABCLIA [id number] [place] [address] [place] ESTIMATED GLOMERULAR FILTRATION RATE 34 mL/min/1.73m??? Low >=60 [facility] Comment on above: Order Comment: Speci men Type: BLOOD SPECIMENOrdering Facility: [facility] Address: [address] [place] [address] Result Comment: Syl mated Glomerular Filtration Rate (eGFR) is calculated using the 2020 CKD-EPI creatinine equation. This equation utilizes serum creatinine, sex, and age as parameters. The creatinine assay has traceable calibration to isotope dilution-mass spectrometry. Refer to KDIGO guidelines for clinical interpretation. In patients with unstable renal function, e.g. those with acute kidney injury, the eGFR may not accurately reflect actual GFR. Performed By: #### 2 4323-8 ####[facility] LABIA [id number] [place] [address] [place] Glucose [Mass/Vol] 133 mg/dL High 74-99 [facility] Comment on above: Order Comment: Joseline clemons Type: BLOOD SPECIMENOrdering Facility: [facility] Address: [address] [address] Result Comment: The [place] [employer] (ADA) provides guidance for cutoff values for fasting glucose and random glucose. The ADA defines fasting as no caloric intake for at least 8 hours. Fasting plasma glucose results between 100 to 125 mg/dL indicate increased risk for diabetes (prediabetes).Fasting plasma glucose results greater than or equal to 126 mg/dL meet the criteria for diagnosis of diabetes. In the absence of unequivocal hyperglycemia, results should be confirmed by repeat testing. In a patient with classic symptoms of hyperglycemia or hyperglycemic crisis, random plasma glucose results greater than or equal to 200 mg/dL meet the criteria for diagnosis of diabetes.Reference: Standards of Medical Care in Diabetes 2016, [place] [employer]. Diabetes Care. 2016.39(Suppl 1). Performed By: #### 2 4323-8 ####[facility] LABIA [id number] [place] [address] [place] Potassium [Moles/Vol] 4.6 mmol/L Normal 3.7-5.1 [facility] Comment on above: Order Comment: Joseline clemons Type: BLOOD SPECIMENOrdering Facility: [facility] Address: [address] [id number] Performed By: #### 2 4323-8 ####[facility] LABIA [id number] [address] [id number] [address] [place] Protein [Mass/Vol] 6.4 g/dL Normal 6.3-8.0 [facility] Comment on above: Order Comment: Speci men Type: BLOOD SPECIMENOrdering Facility: [facility] Address: [address] [address] Performed By: #### 2 4323-8 ####[facility] LABCLIA [id number] [place] [address] [place] Sodium [Moles/Vol] 134 mmol/L Low 136-144 [facility] Comment on above: Order Comment: Speci men Type: BLOOD SPECIMENOrdering Facility: [facility] Address: [address] [place] [address] Performed By: #### 2 4323-8 ####[facility] LABCLIA [id number] [address] [address] [place] Urea nitrogen [Mass/Vol] 53 mg/dL High 9-24 [facility] Comment on above: Order Comment: Speci men Type: BLOOD SPECIMENOrdering Facility: [facility] Address: [address] [place] [address] Performed By: #### 2 4323-8 ####[facility] LABCLIA [id number] [place] [address] [place] ESR Westergren method (Bld) [Velocity]on 03-21-2023 ESR (Bld) [Velocity] 5 mm/h Normal 0-15 [facility] Comment on above: Order Comment: Speci men Type: BLOOD SPECIMENOrdering Facility: [facility] Address: [address] Performed By: #### 4 537-7 ####[facility] LABCLIA [id number] [place] [address] [place] HbA1c (Bld)on 03-21-2023 Average glucose Estimated from glycated hemoglobin (Bld) [Mass/Vol] 160 mg/dL Normal [facility] Comment on above: Order Comment: Joseline men Type: BLOOD SPECIMENOrdering Facility: [facility] Address: [address] [place] [address] Result Comment: eAG: (Estimated average glucose) is a calculated value from HgbA1c and is community engagement representative of the average blood glucose level in the last 2-3 month period. Performed By: #### 5 5454-3 ####[facility] LABCLIA [id number] [place] [address] [place] HbA1c (Bld) [Mass fraction] 7.2 % High 4.3-5.6 [facility] Comment on above: Order Comment: Joseline men Type: BLOOD SPECIMENOrdering Facility: [facility] Address: [address] [place] [address] Result Comment: [place] Diabetes Association guidelines indicate that patients with HgbA1c in the range 5.7-6.4% are at increased risk for development of diabetes, and intervention by lifestyle modification may be beneficial. HgbA1c greater or equal to 6.5% is considered diagnostic of diabetes. Performed By: #### 5 5454-3 ####[facility] LABCLIA [id number] [place] [address] [place] LDH SerPl-cCncon 03-21-2023 LDH [Catalytic activity/Vol] 265 U/L High 135-225 [facility] Comment on above: Order Comment: Reneei men Type: BLOOD SPECIMENOrdering Facility: [facility] Address: [address] [place] [address] Performed By: #### 2 4321-2, 3016-3, [id number], 2532-0 ####[facility] LABIA [id number] [place] [address] [place] PROTEIN ELECTROPHORESIS SERU M (P)on 03-21-2023 Albumin [Mass/Vol] 3.32 g/dL Low 3.43-5.41 [facility] Comment on above: Order Comment: Reneei men Type: BLOOD SPECIMENOrdering Facility: [facility] Address: [address] [place] [address] Performed By: #### 2 4321-2, 6-3, [id number], 2532-0 ####[facility] LABCLIA [id number] [place] [address] [place] Alpha 1 globulin Elph [Mass/Vol] 0.43 g/dL Normal 0.18-0.43 [facility] Comment on above: Order Comment: Speci men Type: BLOOD SPECIMENOrdering Facility: [facility] Address: [address] [address] Performed By: #### 2 4321-2, 3015-3, [id number], 253-0 ####[facility] LABCLIA [id number] [place] [address] [place] Alpha 2 globulin Elph [Mass/Vol] 0.88 g/dL Normal 0.42-0.98 [facility] Comment on above: Order Comment: Speci men Type: BLOOD SPECIMENOrdering Facility: [facility] Address: [address] [place] [address] Performed By: #### 2 4321-2, 3015-3, [id number], 253-0 ####[facility] LABCLIA [id number] [place] [address] [place] Beta globulin Elph [Mass/Vol] 0.89 g/dL Normal 0.61-1.17 [facility] Comment on above: Order Comment: Speci men Type: BLOOD SPECIMENOrdering Facility: [facility] Address: [address] Performed By: #### 2 4321-2, 3015-3, [id number], 2532-0 ####[facility] LABCLIA [id number] [place] [address] [place] Gamma globulin Elph [Mass/Vol] 0.78 g/dL Normal 0.53-1.51 [facility] Comment on above: Order Comment: Speci men Type: BLOOD SPECIMENOrdering Facility: [facility] Address: [address] Performed By: #### 2 4321-2, 3016-3, [id number], 2532-0 ####[facility] LABCLIA [id number] [place] [address] [place] INTERPRETATION COMMENT FOR PROTEIN ELECTROPHORESIS Normal [facility] Comment on above: Order Comment: Speci men Type: BLOOD SPECIMENOrdering Facility: [facility] Address: [address] [address] Performed By: #### 2 4321-2, 6-3, [id number], 2532-0 ####[facility] LABCLIA [id number] [address] [place] M-PROTEIN LOCATION Normal [facility] Comment on above: Order Comment: Speci men Type: BLOOD SPECIMENOrdering Facility: [facility] Address: [address] [address] Result Comment: Not Applicable. Performed By: #### 2 4321-2, 6-3, [id number], 2532-0 ####[facility] LABCLIA [id number] [address] [place] Protein Fractions [Interp] An atypical region of restricted mobility is identified on protein electrophoresis. Abnormal No definitive M protein is identified on protein electrophor esis. [facility] Comment on above: Order Comment: Speci men Type: BLOOD SPECIMENOrdering Facility: [facility] Address: [address] Performed By: #### 2 4321-2, 3016-3, [id number], 2532-0 ####[facility] LABCLIA [id number] [place] [id number] [place] Protein.monoclonal Elph [Mass/Vol] 0.00 g/dL Normal <=0.00 [facility] Comment on above: Order Comment: Speci men Type: BLOOD SPECIMENOrdering Facility: [facility] Address: [address] [address] Performed By: #### 2 4321-2, 3016-3, [id number], 2532-0 ####[facility] LABCLIA [id number] [address] [place] SPE STAFF REVIEW Reviewed by Angeles Russo MD [facility] Comment on above: Order Comment: Speci men Type: BLOOD SPECIMENOrdering Facility: [facility] Address: [address] [place] [address] Performed By: #### 2 4321-2, 3016-3, [id number], 2532-0 ####[facility] LABCLIA [id number] [address] [place] Prot/Creat Uron 03-21-2023 Protein/Creatinine (U) [Mass ratio] 0.24 mg/mg High <0.15 [facility] Comment on above: Order Comment: Speci men Type: URINE SPECIMENOrdering Facility: [facility] Address: [address] [place] [address] Result Comment: Adul t Proteinuria Categories:<0.15 mg/mg is considered normal to mildly increased0.15 - 0.50 mg/mg is considered moderately increased>0.50 mg/mg is considered severely increasedKDIGO. (2013). KDIGO 2012 Clinical Practice Guideline for the Evaluation and Management of Chronic Kidney Disease. Official Journal of the International Society of Nephrology, 3(1), 1-150. Performed By: #### 2 890-2 ####[facility] LABCLIA [id number] [address] [place] Protein/Creatinine (U) [Mass ratio]on 03-21-2023 Creatinine (U) [Mass/Vol] 28.9 mg/dL Normal 20.0-300.0 [facility] Comment on above: Order Comment: Speci men Type: URINE SPECIMENOrdering Facility: [facility] Address: [address] Performed By: #### 2 890-2 ####[facility] LABIA [id number] [place] [address] [place] Protein (U) [Mass/Vol] 7 mg/dL Normal 0-20 [facility] Comment on above: Order Comment: Speci men Type: URINE SPECIMENOrdering Facility: [facility] Address: [address] [place], [place] [address] Performed By: #### 2 890-2 ####[facility] LABIA [id number] [address] [place] THERAPY NTon 03-21-2023 THERAPY NT Normal [facility] THERAPY NT Normal [facility] TSH SerPl-aCncon 03-21-2023 TSH Qn 3.650 m[IU]/L Normal 0.270-4.200 [facility] Comment on above: Order Comment: Speci men Type: BLOOD SPECIMENOrdering Facility: [facility] Address: [address] [place] [address] Performed By: #### 2 4321-2, 3016-3, [id number], 2532-0 ####[facility] LABIA [id number] [place] [address] [place] URINE PROTEIN ELECTROPHORESI S RANDOM (P)on 03-21-2023 Albumin Elph (U) [Mass fraction] 73.16 % Normal [facility] Comment on above: Order Comment: Speci men Type: URINE SPECIMENOrdering Facility: [facility] Address: [address] [place], [place] [address] Performed By: #### U ACR, [id number] ####[facility] LABCLIA [id number] [place] [address] [place] Alpha 1 globulin Elph (U) [Mass fraction] 7.98 % Normal [facility] Comment on above: Order Comment: Speci men Type: URINE SPECIMENOrdering Facility: [facility] Address: [address] Performed By: #### U ACR, [id number] ####[facility] LABCLIA [id number] [place] [address] [place] Alpha 2 globulin Elph (U) [Mass fraction] 6.92 % Normal [facility] Comment on above: Order Comment: Speci men Type: URINE SPECIMENOrdering Facility: [facility] Address: [address] Performed By: #### U ACR, [id number] ####[facility] LABCLIA [id number] [place] [address] [place] Beta globulin Elph (U) [Mass fraction] 9.94 % Normal [facility] Comment on above: Order Comment: Speci men Type: URINE SPECIMENOrdering Facility: [facility] Address: [address] Performed By: #### U ACR, [id number] ####[facility] LABCLIA [id number] [address] [place] Gamma globulin Elph (U) [Mass fraction] 2.00 % Normal [facility] Comment on above: Order Comment: Speci men Type: URINE SPECIMENOrdering Facility: [facility] Address: [address] [place], [place] [address] Performed By: #### U ACR, [id number] ####[facility] LABCLIA [id number] [place] [address] [place] INTERPRETATION COMMENT FOR PROTEIN ELECTROPHORESIS Normal [facility] Comment on above: Order Comment: Speci men Type: URINE SPECIMENOrdering Facility: [facility] Address: [address] Performed By: #### U ACR, [id number] ####[facility] LABCLIA [id number] [place] [id number] [place] [address] Protein Fractions Elph Jarrod (U) [Interp] No definitive M protein is identified on protein electrophoresis. Normal No definitive M protein is identified on protein electrophor esis. [facility] Comment on above: Order Comment: Speci men Type: URINE SPECIMENOrdering Facility: [facility] Address: [address] [place] [address] Performed By: #### U ACR, [id number] ####[facility] LABCLIA [id number] [address] STAFF REVIEW (URINE ELECTRO) Reviewed by Angeles Russo MD Normal [facility] Comment on above: Order Comment: Speci men Type: URINE SPECIMENOrdering Facility: [facility] Address: [address] [place] [address] Performed By: #### U ACR, [id number] ####[facility] LABCLIA [id number] [address] [place] US KIDNEY/BLADDERon 03-21-20 US KIDNEY/BLADDER Normal [facility] Urinalysis complete panel (U )on 03-21-2023 Bilirubin Ql (U) Negative Normal Negative [facility] Comment on above: Order Comment: Speci men Type: URINE SPECIMENOrdering Facility: [facility] Address: [address] [place] [address] Performed By: #### 2 4356-8 ####[facility] LABCLIA [id number] [address] [place] Clarity (Unsp spec) Clear Normal Clear [facility] Comment on above: Order Comment: Speci men Type: URINE SPECIMENOrdering Facility: [facility] Address: [address] [place] [address] Performed By: #### 2 4356-8 ####[facility] LABCLIA [id number] [address] [facility] Color (U) Light Yellow Normal Yellow [facility] Comment on above: Order Comment: Speci men Type: URINE SPECIMENOrdering Facility: [facility] Address: [address] Performed By: #### 2 4356-8 ####[facility] LABCLIA [id number] [place] [address] [place] Epithelial cells LM.HPF (Urine sed) [#/Area] Few Normal [facility] Comment on above: Order Comment: Speci men Type: URINE SPECIMENOrdering Facility: [facility] Address: [address] Performed By: #### 2 4356-8 ####[facility] LABCLIA [id number] [place] [address] [place] Glucose Test strip (U) [Mass/Vol] Negative Normal Trace, Negative [facility] Comment on above: Order Comment: Speci men Type: URINE SPECIMENOrdering Facility: [facility] Address: [address] Performed By: #### 2 4356-8 ####[facility] LABCLIA [id number] [place] [address] [place] Hemoglobin Ql (U) Negative Normal Negative, Trace [facility] Comment on above: Order Comment: Speci men Type: URINE SPECIMENOrdering Facility: [facility] Address: [address] Performed By: #### 2 4356-8 ####[facility] LABCLIA [id number] [place] [address] [place] Ketones Ql (U) Negative Normal Trace, Negative [facility] Comment on above: Order Comment: Speci men Type: URINE SPECIMENOrdering Facility: [facility] Address: [address] Performed By: #### 2 4356-8 ####[facility] LABCLIA [id number] [address] [place] Leukocyte esterase Test strip Ql (U) Negative Normal Negative, 25 Aron/uL [facility] Comment on above: Order Comment: Speci men Type: URINE SPECIMENOrdering Facility: [facility] Address: [address] [place] [address] Performed By: #### 2 4356-8 ####[facility] LABCLIA [id number] [place] [address] [place] Nitrite Ql (U) Negative Normal Negative [facility] Comment on above: Order Comment: Speci men Type: URINE SPECIMENOrdering Facility: [facility] Address: [address] [place] [address] Performed By: #### 2 4356-8 ####[facility] LABCLIA [id number] [place] [address] [place] pH (U) 6.5 [pH] Normal 5.0-8.0 [facility] Comment on above: Order Comment: Speci men Type: URINE SPECIMENOrdering Facility: [facility] Address: [address] [place] [address] Performed By: #### 2 4356-8 ####[facility] LABCLIA [id number] [address] [place] Protein (U) [Mass/Vol] Negative Normal Trace, Negative [facility] Comment on above: Order Comment: Speci men Type: URINE SPECIMENOrdering Facility: [facility] Address: [address] [place] [address] Performed By: #### 2 4356-8 ####[facility] LABIA [id number] [place] [address] [place] RBC LM.HPF (Urine sed) [#/Area] 0-3 /HPF Normal 0-3 /HPF [facility] Comment on above: Order Comment: Speci men Type: URINE SPECIMENOrdering Facility: [facility] Address: [address] [place] [address] Performed By: #### 2 4356-8 ####[facility] LABCLIA [id number] [place] [address] [place] Specific gravity (U) [Rel density] 1.009 Normal 1.005-1.030 [facility] Comment on above: Order Comment: Speci men Type: URINE SPECIMENOrdering Facility: [facility] Address: [address] [place] [address] Performed By: #### 2 4356-8 ####[facility] LABIA [id number] [place] [address] [place] Urobilinogen Ql (U) 1+ Abnormal Negative [facility] Comment on above: Order Comment: Speci men Type: URINE SPECIMENOrdering Facility: [facility] Address: [address] [place] [address] Performed By: #### 2 4356-8 ####[facility] LABIA [id number] [place] [address] [place] WBC LM.HPF (Urine sed) [#/Area] 0-5 /HPF Normal 0-5 /HPF [facility] Comment on above: Order Comment: Speci men Type: URINE SPECIMENOrdering Facility: [facility] Address: [address] [place] [address] Performed By: #### 2 4356-8 ####[facility] LABIA [id number] [place] [address] [place] Basic Metabolic Profon 03-20 Anion gap [Moles/Vol] 12 mmol/L Normal 9-17 [facility] Comment on above: Performed By: #### B MP #### [facility] [address] [place] [address] [employer] Fabricator [employer] Welder: Sy Rojas MD BUN/CRE Ratio 25 High 9-20 [facility] Comment on above: Performed By: #### B MP #### [facility] [address] [place], [place] [address] [employer] Fab[employer]ator [employer] Welder: Sy Rojas MD Calcium [Mass/Vol] 9.5 mg/dL Normal 8.6-10.4 [facility] Comment on above: Performed By: #### B MP #### [facility] [address] [place], [place] [address] [employer] Fab[employer]ator [employer] Welder: Sy Rojas MD Chloride [Moles/Vol] 94 mmol/L Low 98-107 [facility] Comment on above: Performed By: #### B MP #### [facility] [address] [place], [place] [address] [employer] Fabricator Or Welder: Sy Rojas MD CO2 [Moles/Vol] 26 mmol/L Normal 20-31 [facility] Comment on above: Performed By: #### B MP #### [facility] [address] [place], [place] [address] [employer] Fab[employer]ator Or Welder: Sy Rojas MD Creatinine [Mass/Vol] 2.1 mg/dL High 0.7-1.2 [facility] Comment on above: Performed By: #### B MP #### [facility] [address] [place], [place] [address] [employer] Fabricator Or Welder: Sy Rojas MD GFR/1.73 sq M.predicted among non-blacks MDRD (S/P/Bld) [Vol rate/Area] 34 mL/min/{1.73_m2} Low >60 [facility] Comment on above: Result Comment: These results are not intended for use in patients <18 years of age. eGFR results are calculated without a race factor using the 2020 CKD-EPI equation. Careful clinical correlation is recommended, particularly when comparing to results calculated using previous equations. The CKD-EPI equation is less accurate in patients with extremes of muscle mass, extra-renal metabolism of creatine, excessive creatine ingestion, or following therapy that affects renal tubular secretion. Performed By: #### B MP #### [facility] [address] [place], [place] [address] [employer] Fab[employer]ator [employer] Welder: Sy Rojas MD Glucose [Mass/Vol] 50 mg/dL Critically low 70-99 [facility] Comment on above: Performed By: #### B MP #### [facility] [address] [place] [address] Pl[employer] Fabricator Or Welder: Sy Rojas MD Potassium [Moles/Vol] 4.2 mmol/L Normal 3.7-5.3 [facility] Comment on above: Performed By: #### B MP #### [facility] [address] [place] [address] [employer] Fabricator Or Welder: Sy Rojas MD Sodium [Moles/Vol] 132 mmol/L Low 135-144 [facility] Comment on above: Performed By: #### B MP #### [facility] [address] [place] [address] [employer] Fabricator Or Welder: Sy Rojas MD Urea nitrogen [Mass/Vol] 53 mg/dL High 8-23 [facility] Comment on above: Performed By: #### B MP #### [facility] [address] [place] [address] Plastics Fabricator Or Welder: Sy Rojas MD CBC W Auto Differential pane l (Bld)on 03-20-2023 Basophils (Bld) [#/Vol] 0.07 10*3/uL Normal <0.11 [facility] Comment on above: Order Comment: Speci men Type: BLOOD SPECIMENOrdering Facility: [facility] Address: [address] [place] [address] Performed By: #### 5 7021-8, 22966-1 ####[facility] LABCLIA [id number] [facility] [place] [address] [place] Basophils/100 WBC (Bld) 0.8 % Normal [facility] Comment on above: Order Comment: Speci men Type: BLOOD SPECIMENOrdering Facility: [facility] Address: [address] Performed By: #### 5 7021-8, 52419-7 ####[facility] LABCLIA [id number] [place] [address] [place] Differential cell count method Nom (Bld) Auto Normal [facility] Comment on above: Order Comment: Speci men Type: BLOOD SPECIMENOrdering Facility: [facility] Address: [address] Performed By: #### 5 7021-8, 80258-1 ####[facility] LABCLIA [id number] [place] [address] [place] Eosinophils (Bld) [#/Vol] 0.22 10*3/uL Normal <0.46 [facility] Comment on above: Order Comment: Speci men Type: BLOOD SPECIMENOrdering Facility: [facility] Address: [address] Performed By: #### 5 7021-8, 06116-1 ####[facility] LABCLIA [id number] [place] [address] [place] Eosinophils/100 WBC (Bld) 2.4 % Normal [facility] Comment on above: Order Comment: Speci men Type: BLOOD SPECIMENOrdering Facility: [facility] Address: [address] [place], [place] [address] Performed By: #### 5 7021-8, 68335-7 ####[facility] LABIA [id number] [place] [address] [place] Erythrocyte distribution width (RBC) [Ratio] 20.4 % High 11.5-15.0 [facility] Comment on above: Order Comment: Speci men Type: BLOOD SPECIMENOrdering Facility: [facility] Address: [address] Performed By: #### 5 7021-, 91606-3 ####[facility] LABCLIA [id number] [place] [address] [place] Hematocrit (Bld) [Volume fraction] 38.8 % Low 39.0-51.0 [facility] Comment on above: Order Comment: Speci men Type: BLOOD SPECIMENOrdering Facility: [facility] Address: [address] Performed By: #### 5 7021-8, 56833-6 ####[facility] LABCLIA [id number] [place] [address] [place] Hemoglobin (Bld) [Mass/Vol] 11.7 g/dL Low 13.0-17.0 [facility] Comment on above: Order Comment: Speci men Type: BLOOD SPECIMENOrdering Facility: [facility] Address: [address] Performed By: #### 5 7021-8, 81760-5 ####[facility] LABIA [id number] [place] [address] [place] Immature granulocytes (Bld) [#/Vol] 0.03 10*3/uL Normal <0.10 [facility] Comment on above: Order Comment: Speci men Type: BLOOD SPECIMENOrdering Facility: [facility] Address: [address] Performed By: #### 5 7021-8, 78580-2 ####[facility] LABCLIA [id number] [place] [address] [place] Immature granulocytes/100 WBC (Bld) 0.3 % Normal [facility] Comment on above: Order Comment: Speci men Type: BLOOD SPECIMENOrdering Facility: [facility] Address: [address] [place] [address] Performed By: #### 5 7021-8, 61786-8 ####[facility] LABCLIA [id number] [place] [address] [place] Lymphocytes (Bld) [#/Vol] 0.69 10*3/uL Low 1.00-4.00 [facility] Comment on above: Order Comment: Speci men Type: BLOOD SPECIMENOrdering Facility: [facility] Address: [address] [place] [address] Performed By: #### 5 7021-8, 84062-6 ####[facility] LABCLIA [id number] [place] [address] [place] Lymphocytes/100 WBC (Bld) 7.5 % Normal [facility] Comment on above: Order Comment: Speci men Type: BLOOD SPECIMENOrdering Facility: [facility] Address: [address] [place] [address] Performed By: #### 5 7021-8, 63148-9 ####[facility] LABIA [id number] [place] [address] [place] MCH (RBC) [Entitic mass] 24.8 pg Low 26.0-34.0 [facility] Comment on above: Order Comment: Speci men Type: BLOOD SPECIMENOrdering Facility: [facility] Address: [address] [place], [place] [address] Performed By: #### 5 7021-8, 46568-3 ####[facility] LABIA [id number] [place] [address] [place] MCHC (RBC) [Mass/Vol] 30.2 g/dL Low 30.5-36.0 [facility] Comment on above: Order Comment: Speci men Type: BLOOD SPECIMENOrdering Facility: [facility] Address: [address] [place], [place] [address] Performed By: #### 5 7021-8, 47070-7 ####[facility] LABCLIA [id number] [place] [address] [place] MCV (RBC) [Entitic vol] 82.4 fL Normal 80.0-100.0 [facility] Comment on above: Order Comment: Speci men Type: BLOOD SPECIMENOrdering Facility: [facility] Address: [address] [place] [address] Performed By: #### 5 7021-8, 41931-8 ####[facility] LABCLIA [id number] [facility] [place] [address] [place] Monocytes (Bld) [#/Vol] 0.67 10*3/uL Normal <0.87 [facility] Comment on above: Order Comment: Speci men Type: BLOOD SPECIMENOrdering Facility: [facility] Address: [address] [place], [place] [address] Performed By: #### 5 7021-8, 85186-5 ####[facility] LABCLIA [id number] [place] [address] [place] Monocytes/100 WBC (Bld) 7.3 % Normal [facility] Comment on above: Order Comment: Speci men Type: BLOOD SPECIMENOrdering Facility: [facility] Address: [address] [place], [place] [address] Performed By: #### 5 7021-8, 46658-7 ####[facility] LABCLIA [id number] [place] [address] [place] Neutrophils (Bld) [#/Vol] 7.47 10*3/uL Normal 1.45-7.50 [facility] Comment on above: Order Comment: Speci men Type: BLOOD SPECIMENOrdering Facility: [facility] Address: [address] [place], [place] [address] Performed By: #### 5 7021-8, 53379-3 ####[facility] LABCLIA [id number] [place] [address] [place] Neutrophils/100 WBC (Bld) 81.7 % Normal [facility] Comment on above: Order Comment: Speci men Type: BLOOD SPECIMENOrdering Facility: [facility] Address: [address] [place] [address] Performed By: #### 5 7021-8, 07378-0 ####[facility] LABIA [id number] [place] [address] [place] Nucleated RBC (Bld) [#/Vol] 0.02 10*3/uL High <0.01 [facility] Comment on above: Order Comment: Speci men Type: BLOOD SPECIMENOrdering Facility: [facility] Address: [address] Performed By: #### 5 7021-8, 31846-7 ####[facility] LABIA [id number] [place] [address] [place] Nucleated RBC/100 WBC (Bld) [Ratio] 0.2 /100 WBC Normal [facility] Comment on above: Order Comment: Speci men Type: BLOOD SPECIMENOrdering Facility: [facility] Address: [address] Performed By: #### 5 7021-8, 01060-6 ####[facility] LABIA [id number] [place] [address] [place] Platelet mean volume (Bld) [Entitic vol] 9.5 fL Normal 9.0-12.7 [facility] Comment on above: Order Comment: Speci men Type: BLOOD SPECIMENOrdering Facility: [facility] Address: [address] [place] [address] Performed By: #### 5 7021-8, 62580-6 ####[facility] LABIA [id number] [place] [address] [place] Platelets (Bld) [#/Vol] 254 10*3/uL Normal 150-400 [facility] Comment on above: Order Comment: Speci men Type: BLOOD SPECIMENOrdering Facility: [facility] Address: [address] [place] [address] Performed By: #### 5 7021-8, 65228-7 ####[facility] LABCLIA [id number] [address] [place] RBC (Bld) [#/Vol] 4.71 10*6/uL Normal 4.20-6.00 [facility] Comment on above: Order Comment: Speci men Type: BLOOD SPECIMENOrdering Facility: [facility] Address: [address] [place] [address] Performed By: #### 5 7021-8, 58984-2 ####[facility] LABCLIA [id number] [address] [place] WBC (Bld) [#/Vol] 9.15 10*3/uL Normal 3.70-11.00 [facility] Comment on above: Order Comment: Speci men Type: BLOOD SPECIMENOrdering Facility: [facility] Address: [address] [place] [address] Performed By: #### 5 7021-8, 69134-7 ####[facility] LABIA [id number] [place] [address] [place] Comprehensive metabolic 2000 panelon 03-20-2023 Albumin [Mass/Vol] 3.9 g/dL Normal 3.9-4.9 [facility] Comment on above: Order Comment: Speci men Type: BLOOD SPECIMENOrdering Facility: [facility] Address: [address] [place] [address] Performed By: #### 3 3762-6, 90865-2, 99432-1, [id number] ####[facility] LABIA [id number] [address] ALP [Catalytic activity/Vol] 169 U/L High 38-113 [facility] Comment on above: Order Comment: Speci men Type: BLOOD SPECIMENOrdering Facility: [facility] Address: [address] [place] [address] Performed By: #### 3 3762-6, 71911-3, 79720-6, [id number] ####[facility] LABCLIA [id number] [place] [address] [place] ALT [Catalytic activity/Vol] 19 U/L Normal 10-54 [facility] Comment on above: Order Comment: Speci men Type: BLOOD SPECIMENOrdering Facility: [facility] Address: [address] [place] [address] Performed By: #### 3 3762-6, 96757-6, 64345-6, [id number] ####[facility] LABCLIA [id number] [place] [address] [place] Anion gap [Moles/Vol] 11 mmol/L Normal 9-18 [facility] Comment on above: Order Comment: Speci men Type: BLOOD SPECIMENOrdering Facility: [facility] Address: [address] [place] [address] Performed By: #### 3 3762-6, 78454-6, 15009-8, [id number] ####[facility] LABCLIA [id number] [place] [address] [place] AST [Catalytic activity/Vol] 21 U/L Normal 14-40 [facility] Comment on above: Order Comment: Speci men Type: BLOOD SPECIMENOrdering Facility: [facility] Address: [address] [place], [place] [address] Performed By: #### 3 3762-6, 64470-9, 72198-3, [id number] ####[facility] LABCLIA [id number] [place] [address] [place] Bilirubin [Mass/Vol] 2.2 mg/dL High 0.2-1.3 [facility] Comment on above: Order Comment: Speci men Type: BLOOD SPECIMENOrdering Facility: [facility] Address: [address] [place], [place] [address] Performed By: #### 3 3762-6, 83892-2, 31125-1, [id number] ####[facility] LABCLIA [id number] [place] [address] [place] Calcium [Mass/Vol] 9.6 mg/dL Normal 8.5-10.2 [facility] Comment on above: Order Comment: Speci men Type: BLOOD SPECIMENOrdering Facility: [facility] Address: [address] Performed By: #### 3 3762-6, 55188-9, 32500-0, [id number] ####[facility] LABIA [id number] [place] [address] [place] Chloride [Moles/Vol] 96 mmol/L Low 97-105 [facility] Comment on above: Order Comment: Speci men Type: BLOOD SPECIMENOrdering Facility: [facility] Address: [address] [place], [place] [address] Performed By: #### 3 3762-6, 66250-6, 88246-9, [id number] ####[facility] LABIA [id number] [place] [address] [place] CO2 [Moles/Vol] 26 mmol/L Normal 22-30 [facility] Comment on above: Order Comment: Speci men Type: BLOOD SPECIMENOrdering Facility: [facility] Address: [address] [place] [address] Performed By: #### 3 3762-6, 76615-4, 98806-9, [id number] ####[facility] LABCLIA [id number] [place] [address] [place] Creatinine [Mass/Vol] 2.14 mg/dL High 0.73-1.22 [facility] Comment on above: Order Comment: Speci men Type: BLOOD SPECIMENOrdering Facility: [facility] Address: [address] Performed By: #### 3 3762-6, 37423-4, 17177-3, [id number] ####[facility] LABIA [id number] [place] [address] [place] ESTIMATED GLOMERULAR FILTRATION RATE 34 mL/min/1.73m??? Low >=60 [facility] Comment on above: Order Comment: Joseline clemons Type: BLOOD SPECIMENOrdering Facility: [facility] Address: [address] [place] [address] Result Comment: Syl mated Glomerular Filtration Rate (eGFR) is calculated using the 2020 CKD-EPI creatinine equation. This equation utilizes serum creatinine, sex, and age as parameters. The creatinine assay has traceable calibration to isotope dilution-mass spectrometry. Refer to KDIGO guidelines for clinical interpretation. In patients with unstable renal function, e.g. those with acute kidney injury, the eGFR may not accurately reflect actual GFR. Performed By: #### 3 3762-6, 23086-4, , [id number] ####[facility] LABCLIA [id number] [place] [address] [place] Glucose [Mass/Vol] 90 mg/dL Normal 74-99 [facility] Comment on above: Order Comment: Joseline clemons Type: BLOOD SPECIMENOrdering Facility: [facility] Address: [address] [place] [address] Result Comment: The [place] [employer] (ADA) provides guidance for cutoff values for fasting glucose and random glucose. The ADA defines fasting as no caloric intake for at least 8 hours. Fasting plasma glucose results between 100 to 125 mg/dL indicate increased risk for diabetes (prediabetes).Fasting plasma glucose results greater than or equal to 126 mg/dL meet the criteria for diagnosis of diabetes. In the absence of unequivocal hyperglycemia, results should be confirmed by repeat testing. In a patient with classic symptoms of hyperglycemia or hyperglycemic crisis, random plasma glucose results greater than or equal to 200 mg/dL meet the criteria for diagnosis of diabetes.Reference: Standards of Medical Care in Diabetes 2016, [place] [employer]. Diabetes Care. 2016.39(Suppl 1). Performed By: #### 3 3762-6, 04010-8, 55985-9, [id number] ####[facility] LABCLIA [id number] [place] [address] [place] Potassium [Moles/Vol] 4.9 mmol/L Normal 3.7-5.1 [facility] Comment on above: Order Comment: Speci men Type: BLOOD SPECIMENOrdering Facility: [facility] Address: [address] [place], [place] [address] Performed By: #### 3 3762-6, 28209-0, 45787-6, [id number] ####[facility] LABCLIA [id number] [place] [address] [place] Protein [Mass/Vol] 6.6 g/dL Normal 6.3-8.0 [facility] Comment on above: Order Comment: Speci men Type: BLOOD SPECIMENOrdering Facility: [facility] Address: [address] [place], [place] [address] Performed By: #### 3 3762-6, 42353-0, 48828-2, [id number] ####[facility] LABCLIA [id number] [place] [address] [place] Sodium [Moles/Vol] 133 mmol/L Low 136-144 [facility] Comment on above: Order Comment: Speci men Type: BLOOD SPECIMENOrdering Facility: [facility] Address: [address] [place] [address] Performed By: #### 3 3762-6, 97339-3, 98469-1, [id number] ####[facility] LABCLIA [id number] [place] [address] [place] Urea nitrogen [Mass/Vol] 53 mg/dL High 9-24 [facility] Comment on above: Order Comment: Speci men Type: BLOOD SPECIMENOrdering Facility: [facility] Address: [address] [place], [place] [address] Performed By: #### 3 3762-6, 58270-4, 10675-5, [id number] ####[facility] LABCLIA [id number] [address] [address] [facility] ED NOTEon 03-20-2023 ED NOTE Normal [facility] ED NOTE HNO ID: [id number] Author: Miko Ivy Medic Service: Emergency Medicine Author Type: Fiber Worker and Trades Helper Type: ED Notes Filed: 03/20/2023 12:55 PM Note Text: Labs were drawn and sent; 1 purple, 1 green Normal [facility] ED PROV NOTEon 03-20-2023 ED PROV NOTE Normal [facility] HIGH SENSITIVITY TROPONIN T (INITIAL)on 03-20-2023 HIGH SENSITIVITY REINIER 58 ng/L High <12 [facility] Comment on above: Order Comment: Joseline clemons Type: BLOOD SPECIMENOrdering Facility: [facility] Address: [address] [place] [address] Result Comment: When assessing risk for acute coronary syndromes: In patients undergoing blood draw greater than or equal to 2 hours from symptom onset, with history of very low to moderate risk and non-ischemic ECG, an initial hs-Troponin T less than 12 ng/L AND a 1 hour delta hs-Troponin T less than 3 ng/L should be considered very low risk for 30 day MACE. Performed By: #### 3 3762-6, 47227-8, 47607-0, [id number] ####[facility] LABCLIA [id number] [address] [address] [facility] HIGH SENSITIVITY TROPONIN T (SECOND)on 03-20-2023 HIGH SENSITIVITY REINIER 54 ng/L High <12 [facility] Comment on above: Order Comment: Joseline clemons Type: BLOOD SPECIMENOrdering Facility: [facility] Address: [address] [place] [address] Result Comment: When assessing risk for acute coronary syndromes: In patients undergoing blood draw greater than or equal to 2 hours from symptom onset, with history of very low to moderate risk and non-ischemic ECG, an initial hs-Troponin T less than 12 ng/L AND a 1 hour delta hs-Troponin T less than 3 ng/L should be considered very low risk for 30 day MACE. Performed By: #### L [id number] ####[facility] LABCLIA [id number] [place] [address] [place] HIGH SENSITIVITY TROPONIN T (THIRD) 3 HRS AFTER INITIALon 03-20-2023 HIGH SENSITIVITY REINIER 53 ng/L High <12 [facility] Comment on above: Order Comment: Speci men Type: BLOOD SPECIMENOrdering Facility: [facility] Address: [address] [place] [address] Result Comment: When assessing risk for acute coronary syndromes: In patients undergoing blood draw greater than or equal to 2 hours from symptom onset, with history of very low to moderate risk and non-ischemic ECG, an initial hs-Troponin T less than 12 ng/L AND a 1 hour delta hs-Troponin T less than 3 ng/L should be considered very low risk for 30 day MACE. Performed By: #### L [id number], 70617-2, 4542-7 ####[facility] LABCLIA [id number] [place] [address] [place] HISTORY PHYSICALon 3 HISTORY PHYSICAL Normal [facility] Haptoglob SerPl-mCncon 03-20 Haptoglobin [Mass/Vol] 244 mg/dL High 31-238 [facility] Comment on above: Order Comment: Speci men Type: BLOOD SPECIMENOrdering Facility: [facility] Address: [address] [place] [address] Performed By: #### L [id number], 94346-4, 4542-7 ####[facility] LABIA [id number] [place] [address] [place] Magnesium SerPl-mCncon 03-20 Magnesium [Mass/Vol] 2.0 mg/dL Normal 1.7-2.3 [facility] Comment on above: Order Comment: Speci men Type: BLOOD SPECIMENOrdering Facility: [facility] Address: [address] Performed By: #### 3 3762-6, 70520-1, 28810-0, [id number] ####[facility] LABCLIA [id number] [place] [address] [place] NT[facility] Natriuretic peptide.B prohormone N-Terminal [Mass/Vol] 8423 pg/mL High <125 [facility] Comment on above: Order Comment: Speci men Type: BLOOD SPECIMENOrdering Facility: [facility] Address: [address] [place] [address] Performed By: #### 3 3762-6, 73791-9, , [id number] ####[facility] LABCLIA [id number] [place] [address] [place] NURSING PROGon 03-20-2023 NURSING PROG Normal [facility] bilirubin panel [Ma ss/Vol]on 03-20-2023 Bilirubin [Mass/Vol] 2.2 mg/dL High 0.2-1.3 [facility] Comment on above: Order Comment: Speci men Type: BLOOD SPECIMENOrdering Facility: [facility] Address: [address] Performed By: #### L [id number], 43953-2, 4542-7 ####[facility] LABCLIA [id number] [place] [address] [place] Bilirubin.conjugated [Mass/Vol] 0.5 mg/dL High <0.2 [facility] Comment on above: Order Comment: Speci men Type: BLOOD SPECIMENOrdering Facility: [facility] Address: [address] Performed By: #### L [id number], 04152-4, 4542-7 ####[facility] LABCLIA [id number] [place] [address] [place] Bilirubin.indirect [Mass/Vol] 1.7 mg/dL High <1.4 [facility] Comment on above: Order Comment: Joseline clemons Type: BLOOD SPECIMENOrdering Facility: [facility] Address: [address] [place] [address] Performed By: #### L [id number], 93748-6, 4542-7 ####[facility] LABCLIA [id number] [place] [address] [place] PT panel Coag (PPP)on 2022 INR Coag (PPP) [Relative time] 2.0 {INR} High 0.9-1.3 [facility] Comment on above: Order Comment: Joseline clemons Type: BLOOD SPECIMENOrdering Facility: [facility] Address: [address] [place] [address] Result Comment: Baylee min K Antagonist (VKA) Therapeutic Range: INR 2 to 3 (Target INR of 2.5)Note: For patients treated with VKA drugs, such as warfarin, the [place] [employer] 2012 Guideline recommends a therapeutic INR range of 2 to 3 (target INR of 2.5). This recommendation includes high-risk patients with antiphospholipid syndrome with previous arterial or venous thromboembolism, current-generation mechanical or bioprosthetic aortic heart valve replacement.Note: Patients with mechanical aortic valve replacement and additional risk factors for thromboembolic events (atrial fibrillation, previous thromboembolism, LV dysfunction, hypercoagulable conditions) or an older generation mechanical AVR (i.e., ball in-Cage) or any mechanical MVR should have a INR therapeutic range of 2.5 to 3.5 (target INR of 3).Geovanna GH, et al. Chest 2012, 141:7S-47SNishimrashard RA, et al. JACC 2017, 70: 252-289 Performed By: #### 3 4528-0 ####[facility] LABCLIA [id number] [place] [address] [place] PT Coag (PPP) [Time] 19.8 s High 9.7-13.0 [facility] Comment on above: Order Comment: Speci men Type: BLOOD SPECIMENOrdering Facility: [facility] Address: [address] [id number] Performed By: #### 3 4528-0 ####[facility] LABIA [id number] [place] [address] [place] Retics #on 03-20-2023 Reticulocytes (Bld) [#/Vol] 0.62860 10*3/uL Normal 0.018-0.100 [facility] Comment on above: Order Comment: Speci men Type: BLOOD SPECIMENOrdering Facility: [facility] Address: [address] [place] [address] Performed By: #### 5 7021-8, 30087-1 ####[facility] LABIA [id number] [address] [place] Reticulocytes (Bld) [#/Vol]o n 03-20-2023 Reticulocytes/100 RBC (Bld) 1.9 % Normal 0.4-2.0 [facility] Comment on above: Order Comment: Speci men Type: BLOOD SPECIMENOrdering Facility: [facility] Address: [address] [place] [address] Performed By: #### 5 7021-8, 67218-2 ####[facility] [id number] [place] [address] [place] US ABD RIGHT UPPER QUADRANTo n 03-20-2023 US ABD RIGHT UPPER QUADRANT Normal [facility] US ABD SPLEEN -NBon 03-20-20 US ABD SPLEEN -NB Normal [facility] XR CHEST 2V FRONTAL/LATon XR CHEST 2V FRONTAL/LAT Normal [facility] Basic Metabolic Panelon 03-07 Anion gap [Moles/Vol] 11.0 mmol/L Normal 6.0-15.0 [facility] Comment on above: Performed By: #### B MP #### [facility] [address] Calcium [Mass/Vol] 9.5 mg/dL Normal 8.6-10.3 [facility] Comment on above: Performed By: #### B MP #### [facility] [address] Chloride [Moles/Vol] 102 mmol/L Normal 98-[address] [facility] Comment on above: Performed By: #### B MP #### [facility] [address] CO2 [Moles/Vol] 30.2 mmol/L Normal 21.0-31.0 [facility] Comment on above: Performed By: #### B MP #### [facility] [address] Creatinine [Mass/Vol] 2.37 mg/dL High 0.70-1.30 [facility] Comment on above: Performed By: #### B MP #### [place] [address] [place] Creatinine Clr Calc Pharmacy 39.88 Normal [facility] Comment on above: Result Comment: PERF ORMED BY: [place] [address] PATHOLOGIST DOCUMENTATION CONSULTANT DHIRAJ CARLOS M.D. Performed By: #### B MP #### [address] GFR/1.73 sq M.predicted MDRD (S/P/Bld) [Vol rate/Area] 29.656 mL/min/{1.73_m2} Normal [facility] Comment on above: Performed By: #### B MP #### [address] Glucose [Mass/Vol] 44 mg/dL Off scale low 70-100 [facility] Comment on above: Result Comment: Crit ical Result Called to and read back by: HERNAN MEYERS at: 03/18/2023 07:15:01 by:[id number] Random Glucose Reference Range is dependent on time and content of last meal. Glucose of more than 200 mg/dL in a nonstressed, ambulatory subject supports the diagnosis of Diabetes Mellitus. ADA recommended reference range Performed By: #### B MP #### [facility] [address] [place] [address] [place] Potassium [Moles/Vol] 4.2 mmol/L Normal 3.5-5.1 [facility] Comment on above: Performed By: #### B MP #### [facility] [address] [place] [address] [place] Sodium [Moles/Vol] 139 mmol/L Normal 136-145 [facility] Comment on above: Performed By: #### B MP #### [facility] [address] [place] [address] [place] Urea nitrogen [Mass/Vol] 54 mg/dL High 7-25 [facility] Comment on above: Performed By: #### B MP #### [facility] [address] Glucose Poct Glucometerson 0 03-18-2023 Glucose [Mass/Vol] 220 mg/dL Normal [facility] Comment on above: Result Comment: [facility] Glucose Reference Range is dependent on time and content of last meal. Glucose of more than 200 mg/dL in a nonstressed, ambulatory subject supports the diagnosis of Diabetes Mellitus. PERFORMED BY: [place] [address] PATHOLOGIST DOCUMENTATION CONSULTANT DHIRAJ CARLOS M.D. Performed By: #### G LULS #### Point of Care testing , Glucose [Mass/Vol] 146 mg/dL Normal [facility] Comment on above: Result Comment: [facility] Glucose Reference Range is dependent on time and content of last meal. Glucose of more than 200 mg/dL in a nonstressed, ambulatory subject supports the diagnosis of Diabetes Mellitus. PERFORMED BY: [place] [address] PATHOLOGIST DOCUMENTATION CONSULTANT DHIRAJ CARLOS M.D. Performed By: #### G LULS #### Point of Care testing , Glucose [Mass/Vol] 125 mg/dL Normal [facility] Comment on above: Result Comment: [facility] Glucose Reference Range is dependent on time and content of last meal. Glucose of more than 200 mg/dL in a nonstressed, ambulatory subject supports the diagnosis of Diabetes Mellitus. PERFORMED BY: [place] [address] [address] [place] [id number] PATHOLOGIST DOCUMENTATION CONSULTANT DHIRAJ CARLOS M.D. Performed By: #### G LULS #### Point of Care testing , Commemt1 [facility] Comment on above: Result Comment: Glu2 : WILL NOTIFY DR/RN PERFORMED BY: [facility] [address] [place] [address] PATHOLOGIST DOCUMENTATION CONSULTANT DHIRAJ CARLSO M.D. Performed By: #### G LULS #### Point of Care testing , Glucose [Mass/Vol] 51 mg/dL Off scale low [facility] Comment on above: Result Comment: [facility] Glucose Reference Range is dependent on time and content of last meal. Glucose of more than 200 mg/dL in a nonstressed, ambulatory subject supports the diagnosis of Diabetes Mellitus. Performed By: #### G LULS #### Point of Care testing , Prothrombin Time INRon 03-18 INR Coag (PPP) [Relative time] 2.3 {INR} [facility] Comment on above: Result Comment: INR Therapeutic Range A) Pre- and Peroperative OAT started two weeks before surgery. NOT HIP SURGERY: 1.5 - 2.5 HIP SURGERY: 2 - 3 B) Primary and secondary prevention of venous THROMBOSIS: 2 - 3 C) Active venous thrombosis, pulmonary embolism and prevention of recurrent venous thrombosis: 2 - 3 D) Prevention of arterial thromboembolism including patients with mechanical heart valves: 3 - 4.5 PERFORMED BY: [facility] [address] [place] [address] PATHOLOGIST DOCUMENTATION CONSULTANT DHIRAJ CARLOS M.D. Performed By: #### G LULS #### Point of Care testing , PT Coag (PPP) [Time] 26.6 s High 9.0-12.[address] [facility] Comment on above: Performed By: #### G LULS #### Point of Care testing , Basic Metabolic Panelon 03-07 Anion gap [Moles/Vol] 12.3 mmol/L Normal 6.0-15.0 [facility] Comment on above: Performed By: #### G LULS #### Point of Care testing , Calcium [Mass/Vol] 9.1 mg/dL Normal 8.6-10.3 [facility] Comment on above: Performed By: #### G LULS #### Point of Care testing , Chloride [Moles/Vol] 101 mmol/L Normal 98-[address] [facility] Comment on above: Performed By: #### G LULS #### Point of Care testing , CO2 [Moles/Vol] 27.4 mmol/L Normal 21.0-31.0 [facility] Comment on above: Performed By: #### G LULS #### Point of Care testing , Creatinine [Mass/Vol] 2.49 mg/dL High 0.70-1.30 [facility] Comment on above: Performed By: #### G LULS #### Point of Care testing , Creatinine Clr Calc Pharmacy 38.36 [facility] Comment on above: Result Comment: PERF ORMED BY: [facility] [address] [place] [address] PATHOLOGIST DOCUMENTATION CONSULTANT DHIRAJ CARLOS M.D. Performed By: #### G LULS #### Point of Care testing , GFR/1.73 sq M.predicted MDRD (S/P/Bld) [Vol rate/Area] 27.949 mL/min/{1.73_m2} [facility] Comment on above: Performed By: #### G LULS #### Point of Care testing , Glucose [Mass/Vol] 74 mg/dL Normal 70-100 [facility] Comment on above: Result Comment: [facility] Glucose Reference Range is dependent on time and content of last meal. Glucose of more than 200 mg/dL in a nonstressed, ambulatory subject supports the diagnosis of Diabetes Mellitus. ADA recommended reference range Performed By: #### G LULS #### Point of Care testing , Potassium [Moles/Vol] 4.7 mmol/L Normal 3.5-5.1 [facility] Comment on above: Performed By: #### G LULS #### Point of Care testing , Sodium [Moles/Vol] 136 mmol/L Normal 136-145 [facility] Comment on above: Performed By: #### G LULS #### Point of Care testing , Urea nitrogen [Mass/Vol] 55 mg/dL High 7-25 [facility] Comment on above: Performed By: #### G LULS #### Point of Care testing , Glucose Poct Glucometerson 0 03-17-2023 Glucose [Mass/Vol] 208 mg/dL Normal [facility] Comment on above: Result Comment: [facility] Glucose Reference Range is dependent on time and content of last meal. Glucose of more than 200 mg/dL in a nonstressed, ambulatory subject supports the diagnosis of Diabetes Mellitus. PERFORMED BY: [place] [address] PATHOLOGIST DOCUMENTATION CONSULTANT DHIRAJ CARLOS M.D. Performed By: #### G LULS #### Point of Care testing , Commemt1 Glu2: Cleaned Meter [facility] Comment on above: Result Comment: PERF ORMED BY: [place] [address] PATHOLOGIST DOCUMENTATION CONSULTANT DHIRAJ CARLOS M.D. Performed By: #### G LULS #### Point of Care testing , Glucose [Mass/Vol] 138 mg/dL Normal [facility] Comment on above: Result Comment: [facility] Glucose Reference Range is dependent on time and content of last meal. Glucose of more than 200 mg/dL in a nonstressed, ambulatory subject supports the diagnosis of Diabetes Mellitus. Performed By: #### G LULS #### Point of Care testing , Commemt1 Glu2: Cleaned Meter Normal [facility] Comment on above: Result Comment: PERF ORMED BY: [facility] [address] [place] [address] PATHOLOGIST DOCUMENTATION CONSULTANT DHIRAJ CARLOS M.D. Performed By: #### G LULS #### Point of Care testing , Glucose [Mass/Vol] 266 mg/dL Normal [facility] Comment on above: Result Comment: [facility] Glucose Reference Range is dependent on time and content of last meal. Glucose of more than 200 mg/dL in a nonstressed, ambulatory subject supports the diagnosis of Diabetes Mellitus. Performed By: #### G BROCK #### Point of Care testing , Glucose [Mass/Vol] 84 mg/dL Normal [facility] Comment on above: Result Comment: [facility] Glucose Reference Range is dependent on time and content of last meal. Glucose of more than 200 mg/dL in a nonstressed, ambulatory subject supports the diagnosis of Diabetes Mellitus. PERFORMED BY: [place] [address] PATHOLOGIST DOCUMENTATION CONSULTANT DHIRAJ CARLOS M.D. Performed By: #### B MP #### [facility] [address] [place], [place] [id number] [facility] Prothrombin Time INRon 03-17 INR Coag (PPP) [Relative time] 3.4 {INR} Normal [facility] Comment on above: Result Comment: INR Therapeutic Range A) Pre- and Peroperative OAT started two weeks before surgery. NOT HIP SURGERY: 1.5 - 2.5 HIP SURGERY: 2 - 3 B) Primary and secondary prevention of venous THROMBOSIS: 2 - 3 C) Active venous thrombosis, pulmonary embolism and prevention of recurrent venous thrombosis: 2 - 3 D) Prevention of arterial thromboembolism including patients with mechanical heart valves: 3 - 4.5 PERFORMED BY: [place] [address] PATHOLOGIST DOCUMENTATION CONSULTANT DHIRAJ CARLOS M.D. Performed By: #### B MP #### [facility] [address] [place], [place] [address] [facility] PT Coag (PPP) [Time] 38.9 s High 9.0-12.[address] [facility] Comment on above: Performed By: #### B MP #### [address] [address] [facility] Basic Metabolic Panelon 03-07 Anion gap [Moles/Vol] 14.4 mmol/L Normal 6.0-15.0 [facility] Comment on above: Performed By: #### G LULS #### Point of Care testing , Calcium [Mass/Vol] 9.2 mg/dL Normal 8.6-10.3 [facility] Comment on above: Performed By: #### G LULS #### Point of Care testing , Chloride [Moles/Vol] 101 mmol/L Normal 98-[address] [facility] Comment on above: Performed By: #### G LULS #### Point of Care testing , CO2 [Moles/Vol] 24.9 mmol/L Normal 21.0-31.0 [facility] Comment on above: Performed By: #### G LULS #### Point of Care testing , Creatinine [Mass/Vol] 2.50 mg/dL High 0.70-1.30 [facility] Comment on above: Performed By: #### G LULS #### Point of Care testing , Creatinine Clr Calc Pharmacy 38.43 [facility] Comment on above: Result Comment: PERF ORMED BY: [facility] [address] [place] [address] PATHOLOGIST DOCUMENTATION CONSULTANT DHIRAJ CARLOS M.D. Performed By: #### G LULS #### Point of Care testing , GFR/1.73 sq M.predicted MDRD (S/P/Bld) [Vol rate/Area] 27.815 mL/min/{1.73_m2} [facility] Comment on above: Performed By: #### G LULS #### Point of Care testing , Glucose [Mass/Vol] 67 mg/dL Low 70-100 [facility] Comment on above: Result Comment: [facility] Glucose Reference Range is dependent on time and content of last meal. Glucose of more than 200 mg/dL in a nonstressed, ambulatory subject supports the diagnosis of Diabetes Mellitus. ADA recommended reference range Performed By: #### G LULS #### Point of Care testing , Potassium [Moles/Vol] 5.3 mmol/L High 3.5-5.1 [facility] Comment on above: Performed By: #### G BROCK #### Point of Care testing , Sodium [Moles/Vol] 135 mmol/L Low 136-145 [facility] Comment on above: Performed By: #### G JAMEELLS #### Point of Care testing , Urea nitrogen [Mass/Vol] 55 mg/dL High 7-25 [facility] Comment on above: Performed By: #### G JAMEELLS #### Point of Care testing , Complete Blood Count Auto Di ffon 03-16-2023 Basophils (Bld) [#/Vol] 0.1 10*3/uL Normal 0.0-0.2 [facility] Comment on above: Result Comment: PERF ORMED BY: [facility] [address] [place] [address] PATHOLOGIST DOCUMENTATION CONSULTANT DHIRAJ CARLOS M.D. Performed By: #### G JAMEELLS #### Point of Care testing , Basophils/100 WBC (Bld) 0.7 % Normal . [facility] Comment on above: Performed By: #### G JAMEELLS #### Point of Care testing , Eosinophils (Bld) [#/Vol] 0.1 10*3/uL Normal 0.0-0.45 [facility] Comment on above: Performed By: #### G JAMEELLS #### Point of Care testing , Eosinophils/100 WBC (Bld) 1.3 % Normal . [facility] Comment on above: Performed By: #### G JAMEELLS #### Point of Care testing , Erythrocyte distribution width (RBC) [Ratio] 21.2 % High 12.0-14.8 [facility] Comment on above: Performed By: #### G BROCK #### Point of Care testing , Hematocrit (Bld) [Volume fraction] 35.8 % Low 38.8-50.0 [facility] Comment on above: Performed By: #### G JAMEELLS #### Point of Care testing , Hemoglobin (Bld) [Mass/Vol] 11.3 g/dL Low 13.0-17.0 [facility] Comment on above: Performed By: #### G JAMEELLS #### Point of Care testing , Lymphocytes (Bld) [#/Vol] 0.6 10*3/uL Low 1.00-4.8 [facility] Comment on above: Performed By: #### Armin GUTIÉRREZ #### Point of Care testing , Lymphocytes/100 WBC (Bld) 7.4 % Normal . [facility] Comment on above: Performed By: #### Armin JORGENSENLS #### Point of Care testing , MCH (RBC) [Entitic mass] 25.1 pg Low 27.5-35.2 [facility] Comment on above: Performed By: #### Armin JORGENSENLS #### Point of Care testing , MCV (RBC) [Entitic vol] 79.7 fL Low 83.5-101 [facility] Comment on above: Performed By: #### Armin GUTIÉRREZ #### Point of Care testing , Mean Corpuscular HGB Conc 31.5 g/dL Low 32.5-35.6 [facility] Comment on above: Performed By: #### Armin GUTIÉRREZ #### Point of Care testing , Monocytes (Bld) [#/Vol] 0.7 10*3/uL Normal 0.0-0.8 [facility] Comment on above: Performed By: #### Armin GUTIÉRREZ #### Point of Care testing , Monocytes/100 WBC (Bld) 7.8 % Normal . [facility] Comment on above: Performed By: #### Armin GUTIÉRREZ #### Point of Care testing , Neutrophils (Bld) [#/Vol] 7.2 10*3/uL Normal 1.8-7.7 [facility] Comment on above: Performed By: #### Armin GUTIÉRREZ #### Point of Care testing , Neutrophils/100 WBC (Bld) 82.8 % Normal . [facility] Comment on above: Performed By: #### Armin JORGENSENLS #### Point of Care testing , NRBC% 0.3 /100{WBC} Normal 0-0.5 [facility] Comment on above: Performed By: #### Armin GUTIÉRREZ #### Point of Care testing , Platelet mean volume (Bld) [Entitic vol] 7.6 fL Normal 6.6-10.1 [facility] Comment on above: Performed By: #### G LULS #### Point of Care testing , Platelets (Bld) [#/Vol] 272 10*3/uL Normal 150-450 [facility] Comment on above: Performed By: #### G LULS #### Point of Care testing , RBC (Bld) [#/Vol] 4.49 10*6/uL Normal 3.90-5.60 [facility] Comment on above: Performed By: #### G LULS #### Point of Care testing , WBC (Bld) [#/Vol] 8.7 10*3/uL Normal 4.1-10.5 [facility] Comment on above: Performed By: #### G LULS #### Point of Care testing , Dipstick and Microscopicon 0 03-16-2023 Bacteria,Urine None Seen Normal None Seen [facility] Comment on above: Order Comment: Name Collection Type:: Clean-Voided Midstream Performed By: #### G LULS #### Point of Care testing , Hyaline Casts,Urine 0-8 Normal 0-8 [facility] Comment on above: Order Comment: Name Collection Type:: Clean-Voided Midstream Result Comment: PERF ORMED BY: [facility] [address] [place] [address] PATHOLOGIST DOCUMENTATION CONSULTANT DHIRAJ CARLOS M.D. Performed By: #### G LULS #### Point of Care testing , RBC LM.HPF (Urine sed) [#/Area] 0 /[HPF] Normal 0-4 [facility] Comment on above: Order Comment: Name Collection Type:: Clean-Voided Midstream Performed By: #### G LULS #### Point of Care testing , Squamous Epithelial Cell,Urine None Seen Normal 0-2 [facility] Comment on above: Order Comment: Name Collection Type:: Clean-Voided Midstream Performed By: #### G LULS #### Point of Care testing , WBC LM.HPF (Urine sed) [#/Area] 0 /[HPF] Normal 0-4 [facility] Comment on above: Order Comment: Name Collection Type:: Clean-Voided Midstream Performed By: #### G LULS #### Point of Care testing , [facility] echo transthoracicon [facility] echo transthoracic [facility] Main [place] [address] [place] [id number] Echocardiogram Signed Patient: Braak Foster MR#: [id number] : 1955 Acct:[id number] Age/Sex: 67 / M ADM Date: 03/15/23 Loc: Room: [address] [place] [address] Type: ADM IN Attending Dr: Meena Falcon MD Ordering Provider: Meena Falcon MD Date of Service: 03/15/2304/29/1446 [facility] echo transthoracic: CHF Copies to: MD Shady Ayers MD Weight: 259 lb Performed By: RHEA Cifuentes BSA: 2.4 m2 BP: 121/78 mmHg HR: 94 Reason For Study: CHF History: DM, HTN, Stent, CHF, Right Carotid Endartectomy Interpretation Summary The left ventricle is mildly dilated. Mild concentric left ventricular hypertrophy. Ejection Fraction = 15-20%. There is left ventricular diastolic dysfunction. The left atrium appears mildly dilated. The right atrium is mildly dilated. The right ventricle is mildly dilated. There is trace tricuspid regurgitation. Right ventricular systolic pressure is consistent with moderate pulmonary hypertension. Procedure/Quality: A two-dimensional transthoracic echocardiogram with color flow, Doppler and injection of contrast agent Definity was performed. The study was technically fair in quality. Left Ventricle: The left ventricle is mildly dilated. Mild concentric left ventricular hypertrophy. Upper septal hypertrophy (sigmoid septum), normal variant. Ejection Fraction = 15-20%. There is left ventricular diastolic dysfunction. No left ventricular thrombus or mass is seen. Left Atrium: The left atrium appears mildly dilated. The atrial septum appears normal. Right Atrium: The right atrium is mildly dilated. Right Ventricle: The right ventricle is mildly dilated. There is a pacemaker lead in the right ventricle. Aortic Valve: The aortic valve is normal in structure and function. Mitral Valve: The mitral valve leaflets appear normal. There is no evidence of stenosis, fluttering, or prolapse. Tricuspid Valve: The tricuspid valve is normal. There is trace tricuspid regurgitation. Right ventricular systolic pressure is consistent with moderate pulmonary hypertension. Pulmonic Valve: The pulmonic valve is not well visualized. Arteries: The aortic root is normal size. The aortic arch was visualized and no abnormalities were seen. Pericardium/Pleura: No pericardial effusion seen. There is no pleural effusion. IVC/Hepatic Viens: Mildly dilated inferior vena cava. Measurements with Normals IVSd: 1.9 cm (0.7-1.1 cm)LVIDd: 5.6 cm (3.7-5.4 cm) LVPWd: 1.2 cm (0.7-1.1 cm)LVIDs: 5.2 cm (2.3-3.6 cm) LA dimension: 4.0 cm (2.3-4.0 cm)Ao root diam: 3.6 cm(2.0-3.6 cm) asc Aorta Diam: 3.4 cm(2.1-3.4cm) Doppler with Normals RVSP(TR): 57.8 mmHg (18-35mmHg) MV E max jayme: 80.6 cm/sec(0.8-1.3m/s) MV A max jayme: 28.3 cm/sec(0.0-0.0m/s) MV E/A: 2.9 (<1.5) MMode/2D Measurements Calculations RVDd: 3.3 cm FS: 7.3 % Ao root area: LVLd ap4: 8.7 cm TAPSE: 1.6 cm EDV(Teich): 10.3 cm2 EDV(MOD-sp4): RV S Jayme: 151.6 ml 220.0 ml 9.4 cm/sec ESV(Teich): LVLs ap4: 8.5 cm 127.3 ml ESV(MOD-sp4): EF(Teich): 16.0 % 186.0 ml EF(MOD-sp4): 15.5 % __ SV(MOD-sp4): LAV(MOD-sp4): LA A4 area: 19.5 cm2 34.0 ml 56.1 ml LA length (vol): 5.5 cm Doppler Measurements Calculations E/E' lat: 9.0 TV max P.0 mmHg TR max jayme: 327.3 cm/sec E/E' med: 13.0 TR max P.8 mmHg RAP systole: 15.0 mmHg Transcribed By: KAILYN Performed At: 03/16/23 1151 Signed By: Shady Aviles MD 03/16/23 1852 [facility] Glucose Poct Glucometerson 0 03-16-2023 Glucose [Mass/Vol] 147 mg/dL [facility] Comment on above: Result Comment: [facility] Glucose Reference Range is dependent on time and content of last meal. Glucose of more than 200 mg/dL in a nonstressed, ambulatory subject supports the diagnosis of Diabetes Mellitus. PERFORMED BY: [place] [id number] PATHOLOGIST DOCUMENTATION CONSULTANT DHIRAJ CARLOS M.D. Performed By: #### B MP #### [address] Commemt1 Glu2: Cleaned Meter [facility] Comment on above: Result Comment: PERF ORMED BY: [place] [phone] PATHOLOGIST DOCUMENTATION CONSULTANT DHIRAJ CARLOS M.D. Performed By: #### G LULS #### Point of Care testing , Glucose [Mass/Vol] 115 mg/dL Normal [facility] Comment on above: Result Comment: [facility] Glucose Reference Range is dependent on time and content of last meal. Glucose of more than 200 mg/dL in a nonstressed, ambulatory subject supports the diagnosis of Diabetes Mellitus. Performed By: #### G LULS #### Point of Care testing , Glucose [Mass/Vol] 123 mg/dL Normal [facility] Comment on above: Result Comment: [facility] Glucose Reference Range is dependent on time and content of last meal. Glucose of more than 200 mg/dL in a nonstressed, ambulatory subject supports the diagnosis of Diabetes Mellitus. PERFORMED BY: [address] [place] [address] PATHOLOGIST DOCUMENTATION CONSULTANT DHIRAJ CARLOS M.D. Performed By: #### G LULS #### Point of Care testing , Glucose [Mass/Vol] 81 mg/dL Normal [facility] Comment on above: Result Comment: [facility] Glucose Reference Range is dependent on time and content of last meal. Glucose of more than 200 mg/dL in a nonstressed, ambulatory subject supports the diagnosis of Diabetes Mellitus. PERFORMED BY: [address] [place] [id number] PATHOLOGIST DOCUMENTATION CONSULTANT DHIRAJ CARLOS M.D. Performed By: #### G LULS #### Point of Care testing , Glucose [Mass/Vol] 76 mg/dL Normal [facility] Comment on above: Result Comment: [facility] Glucose Reference Range is dependent on time and content of last meal. Glucose of more than 200 mg/dL in a nonstressed, ambulatory subject supports the diagnosis of Diabetes Mellitus. PERFORMED BY: [address] [place] [address] PATHOLOGIST DOCUMENTATION CONSULTANT DHIRAJ CARLOS M.D. Performed By: #### G LULS #### Point of Care testing , Commemt1 [facility] Comment on above: Result Comment: Glu2 : WILL NOTIFY DR/RN PERFORMED BY: [address] [place] [address] PATHOLOGIST DOCUMENTATION CONSULTANT DHIRAJ CARLOS M.D. Performed By: #### G LULS #### Point of Care testing , Glucose [Mass/Vol] 51 mg/dL Off scale low [facility] Comment on above: Result Comment: [facility] Glucose Reference Range is dependent on time and content of last meal. Glucose of more than 200 mg/dL in a nonstressed, ambulatory subject supports the diagnosis of Diabetes Mellitus. Performed By: #### G LULS #### Point of Care testing , Magnesiumon 08-10-2023 Magnesium [Mass/Vol] 1.9 mg/dL Normal 1.9-2.[address] [facility] Comment on above: Result Comment: PERF ORMED BY: [address] [place] [address] PATHOLOGIST DOCUMENTATION CONSULTANT DHIRAJ CARLOS M.D. Performed By: #### M Armin, K #### [facility] [address] [place] [address] MicroAlb Creat Ratio,Uon Albumin DL <= 20 mg/L (U) [Mass/Vol] 11.7 mg/dL High 0.0-1.8 [facility] Comment on above: Order Comment: Comme nt from ua Performed By: #### G LULS #### Point of Care testing , Creatinine, Urine (Random) 70.0 mg/dL High 14.0-26.0 [facility] Comment on above: Order Comment: Comme nt from ua Performed By: #### G LULS #### Point of Care testing , Microalbumin/Creatini ne Ratio 167.0 mg/g High 0.0-30.0 [facility] Comment on above: Order Comment: Comme nt from ua Result Comment: 30-3 00 mg/g indicates an increased risk for diabetic nephropathy. Greater than 300 mg/g is consistent with clinical nephropathy. (Am. J. Kidney Disease 1995, 25:107) PERFORMED BY: [address] [place] [address] PATHOLOGIST DOCUMENTATION CONSULTANT DHIRAJ CARLOS M.D. Performed By: #### G LULS #### Point of Care testing , Potassiumon 03-16-2023 Potassium [Moles/Vol] 5.2 mmol/L High 3.5-5.1 [facility] Comment on above: Performed By: #### M G, K #### [facility] [address] [place], [place] [id number] [place] Prothrombin Time INRon 03-16 INR Coag (PPP) [Relative time] 4.5 {INR} Normal [facility] Comment on above: Result Comment: INR Therapeutic Range A) Pre- and Peroperative OAT started two weeks before surgery. NOT HIP SURGERY: 1.5 - 2.5 HIP SURGERY: 2 - 3 B) Primary and secondary prevention of venous THROMBOSIS: 2 - 3 C) Active venous thrombosis, pulmonary embolism and prevention of recurrent venous thrombosis: 2 - 3 D) Prevention of arterial thromboembolism including patients with mechanical heart valves: 3 - 4.5 PERFORMED BY: [place] [address] PATHOLOGIST DOCUMENTATION CONSULTANT DHIRAJ CARLOS M.D. Performed By: #### G LULS #### Point of Care testing , PT Coag (PPP) [Time] 51.7 s High 9.0-12.[address] [facility] Comment on above: Performed By: #### G LULS #### Point of Care testing , US renal BIon 03-16-2023 US renal BI [facility] [place] [address] [place] [address] Ultrasound Report Signed Patient: Barak Foster MR#: [id number] : 1955 Acct:[id number] Age/Sex: 67 / M ADM Date: 03/15/23 Loc: Room: [address] [place] [address] Type: ADM IN Attending Dr: Meena Falcon MD Ordering Provider: Antwon Hodgson DO, RES Date of Service: 03/16/23 US/US renal BI: new Cr elevation. CKD workup. R/o structural abnormality. Copies to: MD Antwon Ayers DO, RES Bilateral Renal Ultrasound HISTORY: Elevated creatinine COMPARISON: None RIGHT kidney measures 11.7 cm. LEFT kidney measures 10.4 cm. Hydronephrosis: None RENAL STONE: No shadowing renal calculus is seen. RENAL LESIONS: No renal lesion identified. URINARY BLADDER: Mild distention. PROSTATE GLAND Not assessed Mild ascites. US/US renal BI IMPRESSION : No hydronephrosis. Impression dictated by: Fabio Sellers M.D.03/16/2023 5:02 PM Dictation Location: [place] [address] Tech: Isis Hong Transcribed By: PWS 08/10/23 1702 Dictated By: Fabio Sellers DO 03/16/231700 Signed By: 03/16/231701 Normal [facility] Urinalysison 03-16-2023 Appearance (U) Clear Normal Clear [facility] Comment on above: Order Comment: Name Collection Type:: Clean-Voided Midstream Performed By: #### G LULS #### Point of Care testing , Bilirubin,Urine Negative Normal Negative [facility] Comment on above: Order Comment: Name Collection Type:: Clean-Voided Midstream Performed By: #### G LULS #### Point of Care testing , Color (U) Yellow Normal Yellow [facility] Comment on above: Order Comment: Name Collection Type:: Clean-Voided Midstream Performed By: #### G LULS #### Point of Care testing , Glucose Ql (U) Normal Normal Normal [facility] Comment on above: Order Comment: Name Collection Type:: Clean-Voided Midstream Performed By: #### G LULS #### Point of Care testing , Ketones Ql (U) Negative Normal Negative [facility] Comment on above: Order Comment: Name Collection Type:: Clean-Voided Midstream Performed By: #### G LULS #### Point of Care testing , Leukocyte esterase Test strip Ql (U) Negative Normal Negative [facility] Comment on above: Order Comment: Name Collection Type:: Clean-Voided Midstream Performed By: #### G LULS #### Point of Care testing , Nitrite,Urine Negative Normal Negative [facility] Comment on above: Order Comment: Name Collection Type:: Clean-Voided Midstream Performed By: #### G LULS #### Point of Care testing , Occult Blood,Urine Negative Normal Negative [facility] Comment on above: Order Comment: Name Collection Type:: Clean-Voided Midstream Result Comment: PERF ORMED BY: [facility] [address] [place] [address] PATHOLOGIST DOCUMENTATION CONSULTANT DHIRAJ CARLOS M.D. Performed By: #### G LULS #### Point of Care testing , pH (U) 5.5 [pH] Normal 5.0-9.0 [facility] Comment on above: Order Comment: Name Collection Type:: Clean-Voided Midstream Performed By: #### G LULS #### Point of Care testing , Protein,Urine Trace High Negative [facility] Comment on above: Order Comment: Name Collection Type:: Clean-Voided Midstream Performed By: #### G LULS #### Point of Care testing , Specificy Ortley,Urine 1.012 Normal 1.001-1.030 [facility] Comment on above: Order Comment: Name Collection Type:: Clean-Voided Midstream Performed By: #### G LULS #### Point of Care testing , Urobilinogen,Urine Normal Normal Normal [facility] Comment on above: Order Comment: Name Collection Type:: Clean-Voided Midstream Performed By: #### G LULS #### Point of Care testing , B-Type Natriuretic Peptideon 03-15-2023 Natriuretic peptide B (Bld) [Mass/Vol] 1381.0 pg/mL High 5-100 [facility] Comment on above: Result Comment: PERF ORMED BY: [place] [address] PATHOLOGIST DOCUMENTATION CONSULTANT DHIRAJ CARLOS M.D. Performed By: #### [place] PANEL UPP., BIOFIRECOVNOTDE #### [address] Performed By: #### B MP #### [address] Basic Metabolic Panelon Anion gap [Moles/Vol] 15.1 mmol/L High 6.0-15.0 [facility] Comment on above: Performed By: #### [place] PANEL UPP., BIOFIRECOVNOTDE #### [address] Performed By: #### B MP #### [address] Calcium [Mass/Vol] 9.2 mg/dL Normal 8.6-10.3 [facility] Comment on above: Performed By: #### [place] PANEL UPP., BIOFIRECOVNOTDE #### [facility] [address] [place] [address] Performed By: #### B MP #### [address] Chloride [Moles/Vol] 101 mmol/L Normal 98-[address] [facility] Comment on above: Performed By: #### [place] PANEL UPP., BIOFIRECOVNOTDE #### [facility] [address] [place] [address] Performed By: #### B MP #### [address] CO2 [Moles/Vol] 23.5 mmol/L Normal 21.0-31.0 [facility] Comment on above: Performed By: #### [place] PANEL UPP., BIOFIRECOVNOTDE #### [facility] [address] [place] [address] Performed By: #### B MP #### [address] Creatinine [Mass/Vol] 2.44 mg/dL High 0.70-1.30 [facility] Comment on above: Performed By: #### [place] PANEL UPP., BIOFIRECOVNOTDE #### [facility] [address] [place] [address] Performed By: #### B MP #### [address] Creatinine Clr Calc Pharmacy 40.21 Normal [facility] Comment on above: Result Comment: PERF ORMED BY: [place] [address] PATHOLOGIST DOCUMENTATION CONSULTANT DHIRAJ CARLOS M.D. Performed By: #### [place] PANEL UPP., BIOFIRECOVNOTDE #### [facility] [address] [place] [address] Performed By: #### B MP #### [address] GFR/1.73 sq M.predicted MDRD (S/P/Bld) [Vol rate/Area] 28.638 mL/min/{1.73_m2} Normal [facility] Comment on above: Performed By: #### [place] PANEL UPP., BIOFIRECOVNOTDE #### [address] Performed By: #### B MP #### [address] Glucose [Mass/Vol] 64 mg/dL Low 70-100 [facility] Comment on above: Result Comment: [facility] Glucose Reference Range is dependent on time and content of last meal. Glucose of more than 200 mg/dL in a nonstressed, ambulatory subject supports the diagnosis of Diabetes Mellitus. ADA recommended reference range Performed By: #### [place] PANEL UPP., BIOFIRECOVNOTDE #### [address] Performed By: #### B MP #### [address] Potassium [Moles/Vol] 5.6 mmol/L High 3.5-5.1 [facility] Comment on above: Performed By: #### [place] PANEL UPP., BIOFIRECOVNOTDE #### [address] Performed By: #### B MP #### [address] Sodium [Moles/Vol] 134 mmol/L Low 136-145 [facility] Comment on above: Performed By: #### [place] PANEL UPP., BIOFIRECOVNOTDE #### [address] Performed By: #### B MP #### [address] Urea nitrogen [Mass/Vol] 54 mg/dL High 7-25 [facility] Comment on above: Performed By: #### [place] PANEL UPP., BIOFIRECOVNOTDE #### [address] Performed By: #### B MP #### [address] BioFire Not Detectedon 03-15 BioFire Not Detected Not detected Normal Not Detecte [facility] Comment on above: Result Comment: This is a duplicate RP2.1 COVID (PCR) result to be used for statistical tracking purpose only. PERFORMED BY: [place] [address] PATHOLOGIST DOCUMENTATION CONSULTANT DHIRAJ CARLOS M.D. Performed By: #### [place] PANEL UPP., BIOFIRECOVNOTDE #### [address] Performed By: #### B IOFIRECOVNOTDE, RESP PANEL UPP. #### [address] Complete Blood Count Auto Di ffon 03-15-2023 Basophils (Bld) [#/Vol] 0.1 10*3/uL Normal 0.0-0.2 [facility] Comment on above: Result Comment: PERF ORMED BY: [place] [address] PATHOLOGIST DOCUMENTATION CONSULTANT DHIRAJ CARLOS M.D. Performed By: #### C BC, HEPATIC, PTT, BMP, PT, CK, HS TROP, BNP #### [address] Performed By: #### B MP #### [address] Basophils/100 WBC (Bld) 1.0 % Normal . [facility] Comment on above: Performed By: #### C BC, HEPATIC, PTT, BMP, PT, CK, HS TROP, BNP #### [address] Performed By: #### B MP #### [address] Eosinophils (Bld) [#/Vol] 0.1 10*3/uL Normal 0.0-0.45 [facility] Comment on above: Performed By: #### C BC, HEPATIC, PTT, BMP, PT, CK, HS TROP, BNP #### [address] Performed By: #### B MP #### [address] Eosinophils/100 WBC (Bld) 1.3 % Normal . [facility] Comment on above: Performed By: #### C BC, HEPATIC, PTT, BMP, PT, CK, HS TROP, BNP #### [address] Performed By: #### B MP #### [address] Erythrocyte distribution width (RBC) [Ratio] 20.9 % High 12.0-14.8 [facility] Comment on above: Performed By: #### C BC, HEPATIC, PTT, BMP, PT, CK, HS TROP, BNP #### [address] Performed By: #### B MP #### [address] Hematocrit (Bld) [Volume fraction] 37.4 % Low 38.8-50.0 [facility] Comment on above: Performed By: #### C BC, HEPATIC, PTT, BMP, PT, CK, HS TROP, BNP #### [address] Performed By: #### B MP #### [address] Hemoglobin (Bld) [Mass/Vol] 11.6 g/dL Low 13.0-17.0 [facility] Comment on above: Performed By: #### C BC, HEPATIC, PTT, BMP, PT, CK, HS TROP, BNP #### [address] Performed By: #### B MP #### [address] Lymphocytes (Bld) [#/Vol] 0.9 10*3/uL Low 1.00-4.8 [facility] Comment on above: Performed By: #### C BC, HEPATIC, PTT, BMP, PT, CK, HS TROP, BNP #### [address] Performed By: #### B MP #### [address] Lymphocytes/100 WBC (Bld) 10.1 % Normal . [facility] Comment on above: Performed By: #### C BC, HEPATIC, PTT, BMP, PT, CK, HS TROP, BNP #### [address] Performed By: #### B MP #### [address] MCH (RBC) [Entitic mass] 24.9 pg Low 27.5-35.2 [facility] Comment on above: Performed By: #### C BC, HEPATIC, PTT, BMP, PT, CK, HS TROP, BNP #### [address] Performed By: #### B MP #### [address] MCV (RBC) [Entitic vol] 80.4 fL Low 83.5-101 [facility] Comment on above: Performed By: #### C BC, HEPATIC, PTT, BMP, PT, CK, HS TROP, BNP #### [address] Performed By: #### B MP #### [address] Mean Corpuscular HGB Conc 31.0 g/dL Low 32.5-35.6 [facility] Comment on above: Performed By: #### C BC, HEPATIC, PTT, BMP, PT, CK, HS TROP, BNP #### [address] Performed By: #### B MP #### [address] Monocytes (Bld) [#/Vol] 0.7 10*3/uL Normal 0.0-0.8 [facility] Comment on above: Performed By: #### C BC, HEPATIC, PTT, BMP, PT, CK, HS TROP, BNP #### [address] Performed By: #### B MP #### [address] Monocytes/100 WBC (Bld) 15.80 % Normal 0.00-20.00 [facility] Comment on above: Performed By: #### C BC, HEPATIC, PTT, BMP, PT, CK, HS TROP, BNP #### [address] Performed By: #### B MP #### [address] Monocytes/100 WBC (Bld) 8.4 % Normal . [facility] Comment on above: Performed By: #### C BC, HEPATIC, PTT, BMP, PT, CK, HS TROP, BNP #### [address] Performed By: #### B MP #### [address] Neutrophils (Bld) [#/Vol] 6.9 10*3/uL Normal 1.8-7.7 [facility] Comment on above: Performed By: #### C BC, HEPATIC, PTT, BMP, PT, CK, HS TROP, BNP #### [address] Performed By: #### B MP #### [address] Neutrophils/100 WBC (Bld) 79.2 % Normal . [facility] Comment on above: Performed By: #### C BC, HEPATIC, PTT, BMP, PT, CK, HS TROP, BNP #### [facility] [address] [place] [address] Performed By: #### B MP #### [address] NRBC% 0.4 /100{WBC} Normal 0-0.5 [facility] Comment on above: Performed By: #### C BC, HEPATIC, PTT, BMP, PT, CK, HS TROP, BNP #### [address] Performed By: #### B MP #### [address] Platelet mean volume (Bld) [Entitic vol] 7.5 fL Normal 6.6-10.1 [facility] Comment on above: Performed By: #### C BC, HEPATIC, PTT, BMP, PT, CK, HS TROP, BNP #### [address] Performed By: #### B MP #### [address] Platelets (Bld) [#/Vol] 290 10*3/uL Normal 150-450 [facility] Comment on above: Performed By: #### C BC, HEPATIC, PTT, BMP, PT, CK, HS TROP, BNP #### [address] Performed By: #### B MP #### [address] RBC (Bld) [#/Vol] 4.66 10*6/uL Normal 3.90-5.60 [facility] Comment on above: Performed By: #### C BC, HEPATIC, PTT, BMP, PT, CK, HS TROP, BNP #### [address] Performed By: #### B MP #### [address] [place] [address] [place] WBC (Bld) [#/Vol] 8.7 10*3/uL Normal 4.1-10.5 [facility] Comment on above: Performed By: #### C BC, HEPATIC, PTT, BMP, PT, CK, HS TROP, BNP #### [address] Performed By: #### B MP #### [address] Creatine Kinaseon 03-15-2023 CK [Catalytic activity/Vol] 252 U/L High 30-223 [facility] Comment on above: Performed By: #### [place] PANEL UPP., BIOFIRECOVNOTDE #### [address] Performed By: #### B MP #### [address] ECG 12 lead ECGon 03-15-2023 ECG 12 lead ECG [facility] [place] [address] [place] [address] Electrocardiograph Report Signed Patient: Barak Foster MR#: [id number] : 1955 Acct:[id number] Age/Sex: 67 / M ADM Date: 03/15/23 Loc: Room: [address] [place] [address] Type: ADM IN Attending Dr: Meena Falcon MD Ordering Provider: Corey Londono DO Date of Service: 03/15/2304/29/933 ECG/ECG 12 lead ECG: CHEST PAIN Copies to: Test Reason : Blood Pressure : 115/079 mmHG Vent. Rate : 092 BPM Atrial Rate : 091 BPM P-R Int : 212 ms QRS Dur : 136 ms QT Int : 400 ms P-R-T Axes : 064 -55 091 degrees QTc Int : 494 ms Undetermined rhythm Left axis deviation Nonspecific intraventricular block Anterolateral infarct , age undetermined Abnormal ECG No previous ECGs available Confirmed by Corey Londono DO ([id number]) on 03/15/2023 3:10:33 PM Referred By: Electronically Signed By:Corey Londono DO Transcribed By: MUS Signed By Corey Londono DO 3 1510 [facility] ECG 12 lead ECG [facility] [place] [address] [place], [place] [id number] Electrocardiograph Report Signed Patient: Barak Foster MR#: [id number] : 1955 Acct:[id number] Age/Sex: 67 / M ADM Date: 03/15/23 Loc: Room: [address] [place] [address] Type: ADM IN Attending Dr: Meena Falcon MD Ordering Provider: Corey Londono DO Date of Service: 03/15/2304/29/933 ECG/ECG 12 lead ECG: CHEST PAIN Copies to: Test Reason : Blood Pressure : 115/079 mmHG Vent. Rate : 092 BPM Atrial Rate : 091 BPM P-R Int : 212 ms QRS Dur : 136 ms QT Int : 400 ms P-R-T Axes : 064 -55 091 degrees QTc Int : 494 ms Undetermined rhythm Left axis deviation Nonspecific intraventricular block Anterolateral infarct , age undetermined Abnormal ECG No previous ECGs available Confirmed by Corey Londono DO ([id number]) on 03/15/2023 3:10:33 PM Referred By: Electronically Signed By:Corey Londono DO Transcribed By: MUS Signed By Corey Londono DO 3 [address] [facility] Glucose Poct Glucometerson 0 03-15-2023 Glucose [Mass/Vol] 131 mg/dL Normal [facility] Comment on above: Result Comment: [facility] Glucose Reference Range is dependent on time and content of last meal. Glucose of more than 200 mg/dL in a nonstressed, ambulatory subject supports the diagnosis of Diabetes Mellitus. PERFORMED BY: [place] [address] PATHOLOGIST DOCUMENTATION CONSULTANT DHIRAJ CARLOS M.D. Performed By: #### G LULS #### Point of Care testing , Hepatic Panelon 03-15-2023 Albumin [Mass/Vol] 3.8 g/dL Normal 3.5-5.7 [facility] Comment on above: Performed By: #### [place] PANEL UPP., BIOFIRECOVNOTDE #### [address] Performed By: #### B MP #### [address] Albumin/Globulin [Mass ratio] 1.4 {ratio} Normal [facility] Comment on above: Performed By: #### [place] PANEL UPP., BIOFIRECOVNOTDE #### [address] Performed By: #### B MP #### [address] ALP [Catalytic activity/Vol] 153 U/L High 34-104 [facility] Comment on above: Performed By: #### [place] PANEL UPP., BIOFIRECOVNOTDE #### [address] Performed By: #### B MP #### [address] ALT [Catalytic activity/Vol] 18 U/L Normal 7-52 [facility] Comment on above: Performed By: #### [place] PANEL UPP., BIOFIRECOVNOTDE #### [address] Performed By: #### B MP #### [address] AST [Catalytic activity/Vol] 22 U/L Normal 13-39 [facility] Comment on above: Performed By: #### [place] PANEL UPP., BIOFIRECOVNOTDE #### [address] Performed By: #### B MP #### [address] Bilirubin [Mass/Vol] 1.5 mg/dL High 0.3-1.[address] [facility] Comment on above: Result Comment: Samp les from patients who have taken Naproxen have shown spurious elevation in Total Bilirubin levels. A metabolite of Naproxen, O-desmethylnaproxen, has been shown to interfere with the Jendrassik-Grof method for measuring Total Bilirubin. Performed By: #### [place] PANEL UPP., BIOFIRECOVNOTDE #### [address] Performed By: #### B MP #### [address] Bilirubin,Indirect 1.0 mg/dL Normal [facility] Comment on above: Performed By: #### [place] PANEL UPP., BIOFIRECOVNOTDE #### [address] Performed By: #### B MP #### [address] Bilirubin.indirect [Mass/Vol] 0.50 mg/dL High 0.03-0.18 [facility] Comment on above: Performed By: #### [place] PANEL UPP., BIOFIRECOVNOTDE #### [address] Performed By: #### B MP #### [address] Globulin (S) [Mass/Vol] 2.7 g/dL Normal [facility] Comment on above: Performed By: #### [place] PANEL UPP., BIOFIRECOVNOTDE #### [address] Performed By: #### B MP #### [address] Protein [Mass/Vol] 6.5 g/dL Normal 6.4-8.9 [facility] Comment on above: Performed By: #### [place] PANEL UPP., BIOFIRECOVNOTDE #### [address] Performed By: #### B MP #### [address] Partial Thromboplastin Timeo n 03-15-2023 aPTT Coag (Bld) [Time] 42.7 s High 25.1-36.5 [facility] Comment on above: Result Comment: PERF ORMED BY: [place] [address] PATHOLOGIST DOCUMENTATION CONSULTANT DHIRAJ CARLOS M.D. Performed By: #### C BC, HEPATIC, PTT, BMP, PT, CK, HS TROP, BNP #### [address] Performed By: #### B MP #### [address] Prothrombin Time INRon 03-15 INR Coag (PPP) [Relative time] 4.3 {INR} Normal [facility] Comment on above: Result Comment: INR Therapeutic Range A) Pre- and Peroperative OAT started two weeks before surgery. NOT HIP SURGERY: 1.5 - 2.5 HIP SURGERY: 2 - 3 B) Primary and secondary prevention of venous THROMBOSIS: 2 - 3 C) Active venous thrombosis, pulmonary embolism and prevention of recurrent venous thrombosis: 2 - 3 D) Prevention of arterial thromboembolism including patients with mechanical heart valves: 3 - 4.5 Performed By: #### C BC, HEPATIC, PTT, BMP, PT, CK, HS TROP, BNP #### [address] Performed By: #### G LUALBERTO #### Point of Care testing , PT Coag (PPP) [Time] 49.7 s High 9.0-12.[address] [facility] Comment on above: Performed By: #### C BC, HEPATIC, PTT, BMP, PT, CK, HS TROP, BNP #### [address] Performed By: #### G LUALBERTO #### Point of Care testing , Respiratory (Upper) Panel, P CRon 03-15-2023 Respiratory (Upper) Panel, PCR Adenovirus Not detected Bordetella parapertussis Not detected Chlamydia pneumoniae Not detected Coronavirus 229E Not detected Coronavirus HKU1 Not detected Coronavirus NL63 Not detected Coronavirus OC43 Not detected Influenza A Not detected Influenza B Not detected Human Metapneumovirus Not detected Mycoplasma pneumoniae Not detected Parainfluenza Virus 1 Not detected Parainfluenza Virus 2 Not detected Parainfluenza Virus 3 Not detected Parainfluenza Virus 4 Not detected Bordetella pertussis-ptxP Not detected Human Rhino/Enterovirus Not detected Resp. Syncytial Virus Not detected COVID-19 Detected/Not Detected Not detected Blank Space ------ FLUA TEST INCLUDES Influenza A tests for the following clinically FLUA TEST INCLUDES significant subtypes: FLUA TEST INCLUDES - Influenza A FLUA TEST INCLUDES - Influenza A H1 FLUA TEST INCLUDES - Influenza A H1 2009 FLUA TEST INCLUDES - Influenza A H3 Blank Space ------ PERFORMED BY: [place] [address] PATHOLOGIST DOCUMENTATION CONSULTANT DHIRAJ CARLOS M.D. [facility] Comment on above: Performed By: #### R [place] PANEL UPP., BIOFIRECOVNOTDE #### [address] Performed By: #### B IOFIRECOVNOTDE, RESP PANEL UPP. #### [address] Troponin I High Sensitivityo n 03-15-2023 Troponin I High Sensitivity 35.7 pg/mL High 0.0-20.0 [facility] Comment on above: Result Comment: PERF ORMED BY: [place] [address] PATHOLOGIST DOCUMENTATION CONSULTANT DHIRAJ CARLOS M.D. Performed By: #### R [place] PANEL UPP., BIOFIRECOVNOTDE #### [address] Performed By: #### B #### [address] XR chest 1V portableon 03-15 XR chest 1V portable [facility] [place] [address] XRay Report Signed Patient: Barak Foster MR#: [id number] : 1955 Acct:[id number] Age/Sex: 67 / M ADM Date: 03/15/23 Loc: ER Room: Type: PRE ER Attending Dr: Copies to: Corey Londono DO Ordering Provider: Corey Londono DO Date of Service: 03/15/23 XR/XR chest 1V portable: CHEST PAIN SINGLE VIEW CHEST CLINICAL HISTORY: Change in medications. COMPARISON: None FINDINGS: Defibrillator device is in place. Cardiomegaly with vascular congestion. No consolidation pneumothorax large pleural effusion or free air. XR/XR chest 1V portable IMPRESSION: CHF FINDINGS. NO CONSOLIDATION TO SUGGEST PNEUMONIA. Impression dictated by: Antwon Srinivasan Jr., D.OLizzette03/15/2023 9:54 AM Dictation Location: [place] [address] Transcribed By: [facility] 03/15/23953 Dictated By: Antwon Srinivasan Jr, DO 03/15/23952 Signed By: 03/15/23 09 [facility] XR chest 1V portable [facility] [place] [address] XRay Report Signed Patient: Barak Foster MR#: [id number] : 1955 Acct:[id number] Age/Sex: 67 / M ADM Date: 03/15/23 Loc: Room: [address] [place] [address] Type: ADM IN Attending Dr: Meena Falcon MD Copies to: MD Corey Ayers DO Ordering Provider: Corey Londono DO Date of Service: 03/15/23 XR/XR chest 1V portable: CHEST PAIN SINGLE VIEW CHEST CLINICAL HISTORY: Change in medications. COMPARISON: None FINDINGS: Defibrillator device is in place. Cardiomegaly with vascular congestion. No consolidation pneumothorax large pleural effusion or free air. XR/XR chest 1V portable IMPRESSION: CHF FINDINGS. NO CONSOLIDATION TO SUGGEST PNEUMONIA. Impression dictated by: Antwon Srinivasan Jr., D.O.03/15/2023 9:54 AM Dictation Location: [place] [address] Transcribed By: [facility] 03/15/23953 Dictated By: Antwon Srinivasan Jr, DO 03/15/23952 Signed By: 03/15/23953 [facility] Basic Metabolic Profon 03-14 Anion gap [Moles/Vol] 13 mmol/L Normal 9-17 [facility] Comment on above: Performed By: #### G LYHGB, LIPR #### [address] [id number] [employer] Fabricator Or Welder: Oh Jean MD #### EVER, CP #### [facility] [address] [place], [place] [id number] Pl[employer] Fabricator Or Welder: Sy Rojas MD BUN/CRE Ratio 21 High 9-20 [facility] Comment on above: Performed By: #### G LYHGB, LIPR #### [address] [address] [employer] Fabricator Or Welder: Oh Jean MD #### EVER, CP #### [facility] [address] [place], [place] [id number] Pl[employer] Fabricator Or Welder: Sy Rojas MD Calcium [Mass/Vol] 9.3 mg/dL Normal 8.6-10.4 [facility] Comment on above: Performed By: #### G LYHGB, LIPR #### [address] [address] Pl[employer] Fabricator Or Welder: Oh Jean MD #### EVER, CP #### [facility] [address] [place], [place] [id number] [employer]der: Sy Rojas MD Chloride [Moles/Vol] 97 mmol/L Low 98-107 [facility] Comment on above: Performed By: #### G LYHGB, LIPR #### [facility] [address] [place] [address] [employer]ator [employer] Welder: Oh Jean MD #### ZFAST, CP #### [facility] [address] [place], [place] [id number] [employer] Or Welder: Sy Rojas MD CO2 [Moles/Vol] 21 mmol/L Normal 20-31 [facility] Comment on above: Performed By: #### G LYHGB, LIPR #### [facility] [address] [place], [place] [id number] [employer] Welder: Oh Jean MD #### ZFAST, CP #### [facility] [address] [place], [place] [id number] [employer]ator Or Welder: Sy Rojas MD Creatinine [Mass/Vol] 2.3 mg/dL High 0.7-1.2 [facility] Comment on above: Performed By: #### G LYHGB, LIPR #### [facility] [address] [place], [place] [phone] [employer] Welder: Oh Jean MD #### ZFAST, CP #### [facility] [address] [place], [place] [id number] [employer] Or Welder: Sy Rojas MD GFR/1.73 sq M.predicted among non-blacks MDRD (S/P/Bld) [Vol rate/Area] 31 mL/min/{1.73_m2} Low >60 [facility] Comment on above: Result Comment: These results are not intended for use in patients <18 years of age. eGFR results are calculated without a race factor using the 2020 CKD-EPI equation. Careful clinical correlation is recommended, particularly when comparing to results calculated using previous equations. The CKD-EPI equation is less accurate in patients with extremes of muscle mass, extra-renal metabolism of creatine, excessive creatine ingestion, or following therapy that affects renal tubular secretion. Performed By: #### G LYHGB, LIPR #### [address] [place] [address] [employer] Welder: Oh Jean MD #### EVER, CP #### [facility] [address] [place] [address] [employer] Welder: Sy Rojas MD Glucose [Mass/Vol] 91 mg/dL Normal 70-99 [facility] Comment on above: Performed By: #### G LYHGB, LIPR #### [address] [address] [employer]der: Oh Jean MD #### EVER, CP #### [facility] [address] [place], [place] [id number] [employer] Welder: Sy Rojas MD Potassium [Moles/Vol] 5.4 mmol/L High 3.7-5.3 [facility] Comment on above: Performed By: #### G LYHGReina, LIPR #### [address] [address] [employer]der: Oh Jean MD #### EVER, CP #### [facility] [address] [place], [place] [phone] [employer] Welder: Sy Rojas MD Sodium [Moles/Vol] 131 mmol/L Low 135-144 [facility] Comment on above: Performed By: #### G LYHGB, LIPR #### [address] [address] [employer] Welder: Oh Jean MD #### ZFAST, CP #### [facility] [address] [place], [place] [id number] [employer]ator [employer] Welder: Sy Rojas MD Urea nitrogen [Mass/Vol] 49 mg/dL High 8-23 [facility] Comment on above: Performed By: #### G LYHGB, LIPR #### [facility] [address] [place] [address] [employer]ator [employer] Welder: Oh Jean MD #### BRYCEAST, CP #### [facility] [address] [place] [address] [employer] Fab[employer]ator [employer] Welder: Sy Rojas MD Basic Metabolic Profon 03-07 Anion gap [Moles/Vol] 15 mmol/L Normal 9-17 [facility] Comment on above: Performed By: #### G LYHGB, LIPR #### [facility] [address] [place] [address] [employer]ator [employer] Welder: Oh Jean MD #### EVER, CP #### [facility] [address] [place], [place] [phone] [employer] Or Welder: Sy Rojas MD BUN/CRE Ratio 27 High 9-20 [facility] Comment on above: Performed By: #### G LYHGB, LIPR #### [facility] [address] [place] [address] [employer] Fab[employer]ator Or Welder: Oh Jean MD #### EVER, CP #### [facility] [address] [place] [address] [employer] Fab[employer]ator Or Welder: Sy Rojas MD Calcium [Mass/Vol] 9.6 mg/dL Normal 8.6-10.4 [facility] Comment on above: Performed By: #### G LYHGB, LIPR #### [facility] [address] [place] [address] [employer] Fab[employer]ator [employer] Welder: Oh Jean MD #### BRYCEAST, CP #### [facility] [address] [place] [address] [employer] Fab[employer]ator Or Welder: Sy Rojas MD Chloride [Moles/Vol] 99 mmol/L Normal 98-107 [facility] Comment on above: Performed By: #### G LYHGB, LIPR #### [facility] [employer] [address] [place] [address] Plastics Fabricator Or Welder: Oh Jean MD #### ZFAST, CP #### [facility] [address] [place], [place] 1979[address] [employer] Fab[employer]ator [employer] Welder: Sy Rojas MD CO2 [Moles/Vol] 22 mmol/L Normal 20-31 [facility] Comment on above: Performed By: #### G LYHGB, LIPR #### [facility] [address] [place] [address] [employer] Fab[employer]ator Or Welder: Oh Jean MD #### BRYCEAST, CP #### [facility] [address] [place], [place] [id number] [employer]ator [employer] Welder: Sy Rojas MD Creatinine [Mass/Vol] 2.1 mg/dL High 0.7-1.2 [facility] Comment on above: Performed By: #### G LYHGB, LIPR #### [facility] [address] [place], [place] 0649208 [employer] Welder: Oh Jean MD #### ZFAST, CP #### [facility] [address] [place], [place] [phone] [employer] Welder: Sy Rojas MD GFR/1.73 sq M.predicted among non-blacks MDRD (S/P/Bld) [Vol rate/Area] 34 mL/min/{1.73_m2} Low >60 [facility] Comment on above: Result Comment: These results are not intended for use in patients <18 years of age. eGFR results are calculated without a race factor using the 2020 CKD-EPI equation. Careful clinical correlation is recommended, particularly when comparing to results calculated using previous equations. The CKD-EPI equation is less accurate in patients with extremes of muscle mass, extra-renal metabolism of creatine, excessive creatine ingestion, or following therapy that affects renal tubular secretion. Performed By: #### G LYHGB, LIPR #### [facility] [address] [place] [address] [employer] Welder: Oh Jean MD #### EVER, CP #### [facility] [address] [place] [address] [employer] Fab[employer]ator [employer] Welder: Sy Rojas MD Glucose [Mass/Vol] 104 mg/dL High 70-99 [facility] Comment on above: Performed By: #### G LYHGB, LIPR #### [facility] [address] [place] [address] [employer] Welder: Oh Jean MD #### EVER, CP #### [facility] [address] [place] [address] [employer]ator [employer] Welder: Sy Rojas MD Potassium [Moles/Vol] 5.2 mmol/L Normal 3.7-5.3 [facility] Comment on above: Performed By: #### Armin LYHGB, LIPR #### [address] [address] [employer] Welder: Oh Jean MD #### EVER, CP #### [facility] [address] [place] [address] [employer] Fab[employer]ator Or Welder: Sy Rojas MD Sodium [Moles/Vol] 136 mmol/L Normal 135-144 [facility] Comment on above: Performed By: #### Armin LYHGB, LIPR #### [facility] [address] [place] [address] [employer] Welder: Oh Jean MD #### EVER, CP #### [facility] [address] [place] [address] [employer] Fab[employer]ator [employer] Welder: Sy Rojas MD Urea nitrogen [Mass/Vol] 57 mg/dL High 8-23 [facility] Comment on above: Performed By: #### G LYHGB, LIPR #### [address] [place] [address] [employer] Fab[employer]ator [employer] Welder: Oh Jean MD #### ZFAST, CP #### [facility] [address] [place] [address] [employer] Welder: Sy Rojas MD XR CHEST (2 VW)on 02-21-2023 XR CHEST (2 VW) EXAM: XR CHEST (2 VW ) HISTORY: Reason for exam:->cad COMPARISON: 02/22/2022. TECHNIQUE: Two views. FINDINGS: Pacemaker is again seen. Cardiomegaly persists. Mild vascular congestion is noted. There may be a small left pleural effusion as evidenced by blunting of the left costophrenic angle. IMPRESSION: Cardiomegaly with vascular congestion and possible small left pleural effusion. Interpreted by: Vida Tinajero MD Signed by: Vida Tinajero MD 02/21/23 Final result Normal [facility] Cardiomegaly with vascular congestion and possible small left pleural effusion. [facility] EXAM: XR CHEST (2 VW ) HISTORY: Reason for exam:->cad COMPARISON: 02/22/2022. TECHNIQUE: Two views. FINDINGS: Pacemaker is again seen. Cardiomegaly persists. Mild vascular congestion is noted. There may be a small left pleural effusion as evidenced by blunting of the left costophrenic angle. [facility] Vida Tinajero MD - 02/21/2023 EXAM: XR CHEST (2 VW) HISTORY: Reason for exam:->cad COMPARISON: 02/22/2022. TECHNIQUE: Two views. FINDINGS: Pacemaker is again seen. Cardiomegaly persists. Mild vascular congestion is noted. There may be a small left pleural effusion as evidenced by blunting of the left costophrenic angle. IMPRESSION: Cardiomegaly with vascular congestion and possible small left pleural effusion. [facility] XR CHEST (2 VW)Ordered By: Vida Tinajero on 02-21-2023 [facility] CBC with Diffon 02-20-2023 Morphology Jarrod (Bld) [Interp] MODERATE Normal [facility] Comment on above: Result Comment: ANIS OCYTOSIS SLIGHT POIKILOCYTOSIS FEW OVALOCYTES FEW ACANTHOCYTES Performed By: #### Z FAST, CDP, CP, MG, TSHX #### [facility] [address] [place] [address] [employer] Welder: Sy Rojas MD #### LIPR, VD25 #### [address] [id number] [employer] Or Welder: Oh Jean MD Abs. Basophil 0.10 k/uL Normal 0.0-0.2 [facility] Comment on above: Performed By: #### Z FAST, CDP, CP, MG, TSHX #### [facility] [address] [place] [address] [employer] Welder: Sy Rojas MD #### LIPBeni, VD25 #### [place] [id number] [employer] Welder: Oh Jean MD Abs.Neutrophil (Seg) 6.40 k/uL Normal 2.1-6.5 [facility] Comment on above: Performed By: #### Z FAST, CDP, CP, MG, TSHX #### [facility] [address] [place] [address] [employer] Welder: Sy Rojas MD #### LIPR, VD25 #### [place] [address] [employer] Fab[employer]ator Or Welder: Oh Jean MD Basophils/100 WBC (Bld) 1 % Normal 0-2 [facility] Comment on above: Performed By: #### Z FAST, CDP, CP, MG, TSHX #### [facility] [address] [place] [address] [employer]ator [employer] Welder: Sy Rojas MD #### LIPR, VD25 #### [address] [id number] [employer] Or Welder: Oh Jean MD Eosinophils (Bld) [#/Vol] 0.20 10*3/uL Normal 0.0-0.4 [facility] Comment on above: Performed By: #### Z FAST, CDP, CP, MG, TSHX #### [facility] [address] [place] [address] [employer] Welder: Sy Rojas MD #### GAMALIEL, VD25 #### [address] [id number] [employer] Welder: Oh Jean MD Eosinophils/100 WBC (Bld) 2 % Normal 0-5 [facility] Comment on above: Performed By: #### Anna FAST, CDP, CP, MG, TSHX #### [facility] [address] [place] [address] [employer] Welder: Sy Rojas MD #### GREGORIO25 #### [place] [id number] [employer] Welder: Oh Jean MD Erythrocyte distribution width (RBC) [Ratio] 20.6 % High 12.1-15.2 [facility] Comment on above: Performed By: #### Anna FAST, CDP, CP, MG, TSHX #### [facility] [address] [place] [address] [employer]ator Or Welder: Sy Rojas MD #### GREGORIO25 #### [place] [id number] [employer] Welder: Oh Jean MD Hematocrit (Bld) [Volume fraction] 39.7 % Low 41-53 [facility] Comment on above: Performed By: #### Z FAST, CDP, CP, MG, TSHX #### [facility] [address] [place] [id number] [employer] Welder: Sy Rojas MD #### GAMALIEL VD25 #### [address] [id number] [employer] Welder: Oh Jean MD Hemoglobin (Bld) [Mass/Vol] 12.4 g/dL Low 13.5-17.5 [facility] Comment on above: Performed By: #### Z FAST, CDP, CP, MG, TSHX #### [facility] [address] [place], [place] [phone] [employer] Welder: Sy Rojas MD #### LIPR, VD25 #### [address] [id number] [employer] Welder: Oh Jean MD Lymphocytes (Bld) [#/Vol] 1.10 10*3/uL Normal 1.0-4.8 [facility] Comment on above: Performed By: #### Anna FAST, CDP, CP, MG, TSHX #### [facility] [address] [place] [address] [employer]ator Or Welder: Sy Rojas MD #### LIPR, VD25 #### [address] [address] [employer] Welder: Oh Jean MD Lymphocytes/100 WBC (Bld) 13 % Normal 13-44 [facility] Comment on above: Performed By: #### Anna FAST, CDP, CP, MG, TSHX #### [facility] [address] [place] [id number] [employer] Welder: Sy Rojas MD #### LIPR, VD25 #### [address] [address] [employer] Fab[employer] Welder: Oh Jean MD MCH (RBC) [Entitic mass] 25.8 pg Low 26-34 [facility] Comment on above: Performed By: #### Z FAST, CDP, CP, MG, TSHX #### [facility] [address] [place], [place] [phone] [employer] Welder: Sy Rojas MD #### LIPR, VD25 #### [address] [phone] [employer] Welder: Oh Jean MD MCHC (RBC) [Mass/Vol] 31.4 g/dL Normal 31-37 [facility] Comment on above: Performed By: #### Z FAST, CDP, CP, MG, TSHX #### [facility] [address] [place] [address] [employer]ator Or Welder: Sy Rojas MD #### LIPR, VD25 #### [place] [address] [employer] Fab[employer]ator Or Welder: Oh Jean MD MCV (RBC) [Entitic vol] 82.1 fL Normal 80-100 [facility] Comment on above: Performed By: #### Z FAST, CDP, CP, MG, TSHX #### [facility] [address] [place] [address] [employer] Fab[employer]ator Or Welder: Sy Rojas MD #### LIPR, VD25 #### [place] [address] [employer] Fab[employer]ator Or Welder: Oh Jean MD Monocytes (Bld) [#/Vol] 0.90 10*3/uL Normal 0.0-1.0 [facility] Comment on above: Performed By: #### Z FAST, CDP, CP, MG, TSHX #### [facility] [address] [place] [address] [employer] Fab[employer]ator Or Welder: Sy Rojas MD #### LIPR, VD25 #### [place] [address] [employer] Fab[employer]ator Or Welder: Oh Jean MD Monocytes/100 WBC (Bld) 10 % High 5-9 [facility] Comment on above: Performed By: #### Z FAST, CDP, CP, MG, TSHX #### [facility] [address] [place] [address] [employer]ator Or Welder: Sy Rojas MD #### LIPR, VD25 #### [address] [id number] [employer] Or Welder: Oh Jean MD Neutrophil (Seg) 74 % Normal 39-75 [facility] Comment on above: Performed By: #### Z FAST, CDP, CP, MG, TSHX #### [facility] [address] [place] [phone] [employer] Welder: Sy Rojas MD #### LIPR, VD25 #### [place] [id number] [employer] Welder: Oh Jean MD Platelets (Bld) [#/Vol] 282 10*3/uL Normal 140-450 [facility] Comment on above: Performed By: #### Z FAST, CDP, CP, MG, TSHX #### [facility] [address] [place] [id number] [employer] Welder: Sy Rojas MD #### LIPR, VD25 #### [place] [address] [employer] Fab[employer]ator Or Welder: Oh Jean MD RBC (Bld) [#/Vol] 4.84 10*6/uL Normal 4.5-5.9 [facility] Comment on above: Performed By: #### Z FAST, CDP, CP, MG, TSHX #### [facility] [address] [place] [id number] [employer] Welder: Sy Rojas MD #### LIPR, VD25 #### [place] [address] [employer] Or Welder: Oh Jean MD WBC (Bld) [#/Vol] 8.7 10*3/uL Normal 3.5-11.0 [facility] Comment on above: Performed By: #### Z FAST, CDP, CP, MG, TSHX #### [facility] [address] [place] [address] [employer] Welder: Sy Rojas MD #### LIPR, VD25 #### [address] [address] [employer] Or Welder: Oh Jean MD Comp Metabolic Profon 2022 Albumin [Mass/Vol] 3.6 g/dL Normal 3.5-5.2 [facility] Comment on above: Performed By: #### G LYHGB, LIPR #### [address] [address] [employer] Welder: Oh Jean MD #### EVER, CP #### [facility] [address] [place] [address] [employer] Fab[employer]ator Or Welder: Sy Rojas MD Alkaline Phos 168 U/L High 40-129 [facility] Comment on above: Performed By: #### G LYHGB, LIPR #### [address] [address] [employer] Welder: Oh Jean MD #### EVER, CP #### [facility] [address] [place] [address] [employer] Fab[employer]ator Or Welder: Sy Rojas MD ALT [Catalytic activity/Vol] 23 U/L Normal 5-41 [facility] Comment on above: Performed By: #### G LYHGB, LIPR #### [address] [address] [employer] Welder: Oh Jean MD #### ZFAST, CP #### [facility] [address] [place] [address] [employer] Or Welder: Sy Rojas MD Anion gap [Moles/Vol] 14 mmol/L Normal 9-17 [facility] Comment on above: Performed By: #### G LYHGB, LIPR #### [facility] [address] [place] [address] [employer] Fab[employer]ator Or Welder: Oh Jean MD #### EVER, CP #### [facility] [address] [place] [address] [employer] Fab[employer]ator Or Welder: Sy Rojas MD AST [Catalytic activity/Vol] 26 U/L Normal <40 [facility] Comment on above: Performed By: #### G LYHGB, LIPR #### [facility] [address] [place] [address] [employer] Fab[employer]ator Or Welder: Oh Jean MD #### EVER, CP #### [facility] [address] [place] [address] [employer] Or Welder: Sy Rojas MD Bilirubin [Mass/Vol] 1.8 mg/dL High 0.3-1.2 [facility] Comment on above: Performed By: #### Armin LYHGB, LIPR #### [address] [address] [employer] Welder: Oh Jean MD #### EVER, CP #### [facility] [address] [place] [address] [employer] Fab[employer] Or Welder: Sy Rojas MD BUN/CRE Ratio 22 High 9-20 [facility] Comment on above: Performed By: #### G LYHGB, LIPR #### [facility] [address] [place] [address] [employer] Welder: Oh Jean MD #### BRYCEAST, CP #### [facility] [address] [place] [address] [employer]ator Or Welder: Sy Rojas MD Calcium [Mass/Vol] 9.7 mg/dL Normal 8.6-10.4 [facility] Comment on above: Performed By: #### G LYHGB, LIPR #### [address], [place] [phone] [employer] Or Welder: Oh Jean MD #### BRYCEAST, CP #### [facility] [address] [place], [place] [phone] [employer] Fab[employer]ator Or Welder: Sy Rojas MD Chloride [Moles/Vol] 105 mmol/L Normal 98-107 [facility] Comment on above: Performed By: #### G LYHGB, LIPR #### [address] [id number] [employer] Welder: Oh Jean MD #### EVER, CP #### [facility] [address] [place] [address] [employer] Fab[employer] Or Welder: Sy Rojas MD CO2 [Moles/Vol] 21 mmol/L Normal 20-31 [facility] Comment on above: Performed By: #### Armin LYHGB, LIPR #### [address] [place], [place] [phone] [employer] Or Welder: Oh Jean MD #### EVER, CP #### [facility] [address] [place] [address] [employer] Fab[employer]ator Or Welder: Sy Rojas MD Creatinine [Mass/Vol] 1.9 mg/dL High 0.7-1.2 [facility] Comment on above: Performed By: #### Armin LYHGB, LIPR #### [address] [id number] [employer] Welder: Oh Jean MD #### BRYCEAST, CP #### [facility] [address] [place] [address] [employer] Fab[employer]ator Or Welder: Sy Rojas MD GFR/1.73 sq M.predicted among non-blacks MDRD (S/P/Bld) [Vol rate/Area] 39 mL/min/{1.73_m2} Low >60 [facility] Comment on above: Result Comment: These results are not intended for use in patients <18 years of age. eGFR results are calculated without a race factor using the 2020 CKD-EPI equation. Careful clinical correlation is recommended, particularly when comparing to results calculated using previous equations. The CKD-EPI equation is less accurate in patients with extremes of muscle mass, extra-renal metabolism of creatine, excessive creatine ingestion, or following therapy that affects renal tubular secretion. Performed By: #### G LYHGB, LIPR #### [address] [phone] [employer]der: Oh Jean MD #### BRYCEAST, CP #### [facility] [address] [place], [place] [phone] [employer] Or Welder: Sy Rojas MD Glucose [Mass/Vol] 95 mg/dL Normal 70-99 [facility] Comment on above: Performed By: #### G LYHGB, LIPR #### [address] [address] [employer] Welder: Oh Jean MD #### EVER, CP #### [facility] [address] [place], [place] [id number] [employer] Or Welder: Sy Rojas MD Potassium [Moles/Vol] 5.6 mmol/L High 3.7-5.3 [facility] Comment on above: Performed By: #### G LYHGB, LIPR #### [address] [address] [employer] Welder: Oh Jean MD #### ZFAST, CP #### [facility] [address] [place], [place] [phone] [employer] Or Welder: Sy Rojas MD Protein [Mass/Vol] 6.7 g/dL Normal 6.4-8.3 [facility] Comment on above: Performed By: #### G LYHGB, LIPR #### [address] [address] [employer] Welder: Oh Jean MD #### ZFAST, CP #### [facility] [address] [place], [place] [phone] [employer] Or Welder: Sy Rojas MD Sodium [Moles/Vol] 140 mmol/L Normal 135-144 [facility] Comment on above: Performed By: #### G LYHGB, LIPR #### [address] [phone] [employer] Welder: Oh Jean MD #### ZFAST, CP #### [facility] [address] [place] [address] [employer] Or Welder: Sy Rojas MD Urea nitrogen [Mass/Vol] 42 mg/dL High 8-23 [facility] Comment on above: Performed By: #### G LYHGB, LIPR #### [address] [id number] [employer] Welder: Oh Jean MD #### ZFAST, CP #### [facility] [address] [place], [place] [phone] [employer] Or Welder: Sy Rojas MD Albumin [Mass/Vol] 3.6 g/dL Normal 3.5-5.2 [facility] Comment on above: Performed By: #### Z FAST, CDP, CP, MG, TSHX #### [facility] [address] [place], [place] [phone] [employer] Or Welder: Sy Rojas MD #### LIPR, VD25 #### [address] [id number] [employer] Welder: Oh Jean MD Alkaline Phos 172 U/L High 40-129 [facility] Comment on above: Performed By: #### Z FAST, CDP, CP, MG, TSHX #### [facility] [address] [place], [place] [phone] [employer] Or Welder: Sy Rojas MD #### LIPR, VD25 #### [facility] [address] [place], [place] [phone] [employer]ator Or Welder: Oh Jean MD ALT [Catalytic activity/Vol] 22 U/L Normal 5-41 [facility] Comment on above: Performed By: #### Z FAST, CDP, CP, MG, TSHX #### [facility] [address] [place] [address] [employer] Welder: Sy Rojas MD #### LIPR, VD25 #### [address] [place], [place] [phone] [employer] Welder: Oh Jean MD Anion gap [Moles/Vol] 12 mmol/L Normal 9-17 [facility] Comment on above: Performed By: #### Z FAST, CDP, CP, MG, TSHX #### [facility] [address] [place] [address] [employer] Welder: Sy Rojas MD #### LIPR, VD25 #### [address] [place], [place] [id number] [employer] Welder: Oh Jean MD AST [Catalytic activity/Vol] 25 U/L Normal <40 [facility] Comment on above: Performed By: #### Z FAST, CDP, CP, MG, TSHX #### [facility] [address] [place] [address] [employer]der: Sy Rojas MD #### LIPR, VD25 #### [address] [place], [place] [id number] [employer]: Oh Jean MD Bilirubin [Mass/Vol] 1.8 mg/dL High 0.3-1.2 [facility] Comment on above: Performed By: #### Z FAST, CDP, CP, MG, TSHX #### [facility] [address] [place] [address] [employer]: Sy Rojas MD #### LIPR, VD25 #### [address] [id number] [employer]der: Oh Jean MD BUN/CRE Ratio 22 High 9-20 [facility] Comment on above: Performed By: #### Z FAST, CDP, CP, MG, TSHX #### [facility] [address] [place], [place] [id number] [employer]: Sy Rojas MD #### LIPR, VD25 #### [address] [id number] [employer]: Oh Jean MD Calcium [Mass/Vol] 9.8 mg/dL Normal 8.6-10.4 [facility] Comment on above: Performed By: #### Z FAST, CDP, CP, MG, TSHX #### [facility] [address] [place], [place] [id number] [employer]: Sy Rojas MD #### LIPR, VD25 #### [address] [id number] [employer]: Oh Jean MD Chloride [Moles/Vol] 105 mmol/L Normal 98-107 [facility] Comment on above: Performed By: #### Z FAST, CDP, CP, MG, TSHX #### [facility] [address] [place], [place] [phone] [employer]: Sy Rojas MD #### LIPR, VD25 #### [address] [id number] [employer]: Oh Jean MD CO2 [Moles/Vol] 23 mmol/L Normal 20-31 [facility] Comment on above: Performed By: #### Z FAST, CDP, CP, MG, TSHX #### [facility] [address] [place], [place] [phone] [employer]: Sy Rojas MD #### GAMALIEL, VD25 #### [facility] [address] [place], [place] [phone] [employer]: Oh Jean MD Creatinine [Mass/Vol] 1.9 mg/dL High 0.7-1.2 [facility] Comment on above: Performed By: #### Z FAST, CDP, CP, MG, TSHX #### [facility] [address] [place], [place] [id number] [employer]: Sy Rojas MD #### GAMALIEL, VD25 #### [address] [place] [address] [employer]: Oh Jean MD GFR/1.73 sq M.predicted among non-blacks MDRD (S/P/Bld) [Vol rate/Area] 39 mL/min/{1.73_m2} Low >60 [facility] Comment on above: Result Comment: These results are not intended for use in patients <18 years of age. eGFR results are calculated without a race factor using the 2020 CKD-EPI equation. Careful clinical correlation is recommended, particularly when comparing to results calculated using previous equations. The CKD-EPI equation is less accurate in patients with extremes of muscle mass, extra-renal metabolism of creatine, excessive creatine ingestion, or following therapy that affects renal tubular secretion. Performed By: #### Z FAST, CDP, CP, MG, TSHX #### [facility] [address] [place] [address] [employer]: Sy Rojas MD #### GAMALIEL, VD25 #### [address] [place], [place] [phone] [employer]der: Oh Jean MD Glucose [Mass/Vol] 93 mg/dL Normal 70-99 [facility] Comment on above: Performed By: #### Z FAST, CDP, CP, MG, TSHX #### [facility] [address] [place], [place] [phone] [employer]: Sy Rojas MD #### LIPBeni, VD25 #### [address] [phone] [employer]der: Oh Jean MD Potassium [Moles/Vol] 5.5 mmol/L High 3.7-5.3 [facility] Comment on above: Performed By: #### Z FAST, CDP, CP, MG, TSHX #### [facility] [address] [place] [address] [employer]der: Sy Rojas MD #### GAMALIEL, VD25 #### [id number] [employer]der: Oh Jean MD Protein [Mass/Vol] 6.8 g/dL Normal 6.4-8.3 [facility] Comment on above: Performed By: #### Anna FAST, CDP, CP, MG, TSHX #### [facility] [address] [place] [address] [employer]der: Sy Rojas MD #### GAMALIEL, VD25 #### [address] [phone] [employer]der: Oh Jean MD Sodium [Moles/Vol] 140 mmol/L Normal 135-144 [facility] Comment on above: Performed By: #### Anna FAST, CDP, CP, MG, TSHX #### [facility] [address] [place] [address] [employer]der: Sy Rojas MD #### GAMALIEL, VD25 #### [address] [id number] [employer]der: Oh Jean MD Urea nitrogen [Mass/Vol] 41 mg/dL High 8-23 [facility] Comment on above: Performed By: #### Z FAST, CDP, CP, MG, TSHX #### [facility] [address] [place], [place] [phone] [employer]der: Sy Rojas MD #### LIPR, VD25 #### [facility] [address] [place] [address] [employer]der: Oh Jean MD Hemoglobin A1Con 02-20-2023 Glucose [Mass/Vol] 160 mg/dL Normal [facility] Comment on above: Result Comment: The ADA and AACC recommend providing the estimated average glucose result to permit better patient understanding of their HBA1c result. Performed By: #### G LYHGB, LIPR #### [facility] [address] [place] [address] [employer]: Oh Jean MD #### BRYCEAST, CP #### [facility] [address] [place] [address] [employer]der: Sy Rojas MD HbA1c (Bld) [Mass fraction] 7.2 % High 4.0-6.0 [facility] Comment on above: Performed By: #### G LYHGB, LIPR #### [address] [address] [employer]der: Oh Jean MD #### ZFAST, CP #### [facility] [address] [place], [place] [phone] [employer]der: Sy Rojas MD Lipid Profileon 02-20-2023 Cholesterol [Mass/Vol] 64 mg/dL Normal <200 [facility] Comment on above: Result Comment: Cholesterol Guidelines: <200 Desirable 200-240 Borderline >240 Undesirable Performed By: #### G LYHGB, LIPR #### [facility] [address] [place] [address] [employer] Welder: Oh Jean MD #### ZFAST, CP #### [facility] [address] [place], [place] [phone] [employer]der: Sy Rojas MD Cholesterol in HDL [Mass/Vol] 26 mg/dL Low >40 [facility] Comment on above: Result Comment: HDL Guidelines: <40 Undesirable 40-59 Borderline >59 Desirable Performed By: #### G LYHGB, LIPR #### [address] [address] [employer]: Oh Jean MD #### EVER, CP #### [facility] [address] [place], [place] [phone] [employer]der: Sy Rojas MD Cholesterol in LDL [Mass/Vol] 23 mg/dL Normal 0-130 [facility] Comment on above: Result Comment: LDL Guidelines: <100 Desirable 100-129 Near to/above Desirable 130-159 Borderline >159 Undesirable Direct (measured) LDL and calculated LDL are not interchangeable tests. Performed By: #### G LYHGReina, LIPR #### [address] [address] [employer]: Oh Jean MD #### EVER, CP #### [facility] [address] [place], [place] [phone] [employer]der: Sy Rojas MD Cholesterol.total/Cho lesterol in HDL [Mass ratio] 2.5 {ratio} Normal <5 [facility] Comment on above: Performed By: #### Armin LYHGReina, LIPR #### [address] [address] [employer]der: Oh Jean MD #### EVER, CP #### [facility] [address] [place], [place] [phone] [employer] Welder: Sy Rojas MD Triglyceride [Mass/Vol] 73 mg/dL Normal <150 [facility] Comment on above: Result Comment: Triglyceride Guidelines: <150 Desirable 150-199 Borderline 200-499 High >499 Very high Based on AHA Guidelines for fasting triglyceride, May 2012. Performed By: #### G LYHGReina, LIPR #### [address] [address] [employer]der: Oh Jean MD #### BRYCEAST, CP #### [facility] [address] [place] [address] [employer] Welder: Sy Rojas MD Cholesterol [Mass/Vol] 62 mg/dL Normal <200 [facility] Comment on above: Result Comment: Cholesterol Guidelines: <200 Desirable 200-240 Borderline >240 Undesirable Performed By: #### G LYHGB, LIPR #### [address] [address] [employer]der: Oh Jean MD #### BRYCEAST, CP #### [facility] [address] [place], [place] [phone] [employer] Welder: Sy Rojas MD Cholesterol in HDL [Mass/Vol] 26 mg/dL Low >40 [facility] Comment on above: Result Comment: HDL Guidelines: <40 Undesirable 40-59 Borderline >59 Desirable Performed By: #### G LYHGB, LIPR #### [address] [address] [employer]der: Oh Jean MD #### EVER, CP #### [facility] [address] [place], [place] [phone] [employer] Welder: Sy Rojas MD Cholesterol in LDL [Mass/Vol] 22 mg/dL Normal 0-130 [facility] Comment on above: Result Comment: LDL Guidelines: <100 Desirable 100-129 Near to/above Desirable 130-159 Borderline >159 Undesirable Direct (measured) LDL and calculated LDL are not interchangeable tests. Performed By: #### G LYHGB, LIPR #### [address] [address] [employer]: Oh Jean MD #### ZFAST, CP #### [facility] [address] [place], [place] [phone] [employer]der: Sy Rojas MD Cholesterol.total/Cho lesterol in HDL [Mass ratio] 2.4 {ratio} Normal <5 [facility] Comment on above: Performed By: #### G LYHGB, LIPR #### [facility] [address] [place] [address] [employer] Welder: Oh Jean MD #### ZFAST, CP #### [facility] [address] [place] [address] [employer] Welder: Sy Rojas MD Triglyceride [Mass/Vol] 72 mg/dL Normal <150 [facility] Comment on above: Result Comment: Triglyceride Guidelines: <150 Desirable 150-199 Borderline 200-499 High >499 Very high Based on AHA Guidelines for fasting triglyceride, May 2012. Performed By: #### G LYHGB, LIPR #### [address] [address] [employer]: Oh Jean MD #### ZFAST, CP #### [facility] [address] [place] [address] [employer] Welder: Sy Rojas MD Magnesiumon 02-20-2023 Magnesium [Mass/Vol] 1.9 mg/dL Normal 1.6-2.6 [facility] Comment on above: Performed By: #### Z FAST, CDP, CP, MG, TSHX #### [facility] [address] [place] [address] [employer] Welder: Sy Rojas MD #### LIPR, VD25 #### [address] [address] [employer]der: Oh Jean MD Patient fasting?on 3 Patient fasting? yes Normal [facility] Comment on above: Performed By: #### G LYHGB, LIPR #### [facility] [address] [place] [address] [employer] Welder: Oh Jean MD #### ZFAST, CP #### [facility] [address] [place], [place] [phone] [employer] Welder: Sy Rojas MD Patient fasting? yes Normal [facility] Comment on above: Performed By: #### Z FAST, CDP, CP, MG, TSHX #### [facility] [address] [place], [place] [phone] [employer]der: Sy Rojas MD #### LIPR, VD25 #### [address] [id number] [employer]der: Oh Jean MD TSH w/reflex to FT4on 2022 Thyroid Stim. Horm. 2.99 uIU/mL Normal 0.30-5.00 [facility] Comment on above: Performed By: #### Z FAST, CDP, CP, MG, TSHX #### [facility] [address] [place], [place] [phone] [employer]der: Sy Rojas MD #### LIPR, VD25 #### [address] [id number] [employer]: Oh Jean MD Vitamin D 25 OHon 02-20-2023 Vitamin D 25 OH 54.9 ng/mL Normal >29.9 [facility] Comment on above: Result Comment: Reference Range: Vitamin D status Range Deficiency <20 ng/mL Mild Deficiency 20-30 ng/mL Sufficiency 30-100 ng/mL Toxicity >100 ng/mL Performed By: #### G LYHGB, LIPR #### [address] [phone] [employer]: Oh Jean MD #### ZFAST, CP #### [facility] [address] [place], [place] [phone] [employer] Welder: Sy Rojas MD XR CHEST (2 VW)on 02-20-2023 Radiology Study observation (narrative) [facility] 01-04-2023 INR Coag (Bld) [Relative time] 3.1 {INR} [facility] Work Phone: [facility] Work Phone: CBC AUTO DIFFon 12-29-2022 BASO # 0.0 103/ul Normal 0.0-0.1 [facility] Comment on above: Performed By: #### C BC #### [facility] [address] [address] [address] Bertha Oden Basophils/100 WBC (Bld) 0.5 % Normal 0.2-2.0 [facility] Comment on above: Performed By: #### C BC #### [facility] [address] [place] [address] Dr. Bertha Oden EO # 0.1 103/ul Normal 0.0-0.7 [facility] Comment on above: Performed By: #### C BC #### [facility] [address] [address] [address] Bertha Oden Eosinophils/100 WBC (Bld) 1.0 % Normal 0.9-7.0 [facility] Comment on above: Performed By: #### C BC #### [facility] [address] [place] [address] Dr. Bertha Oden Erythrocyte distribution width (RBC) [Ratio] 18.2 % Critically high 11.0-15.0 [facility] Comment on above: Performed By: #### C BC #### [facility] [address] [place] [address] Dr. Bertha Oden Hematocrit (Bld) [Volume fraction] 40.8 % Critically low 42.0-54.0 [facility] Comment on above: Performed By: #### C BC #### [facility] [address] [place] [address] Dr. Bertha Oden Hemoglobin (Bld) [Mass/Vol] 12.5 g/dL Critically low 14.0-18.0 [facility] Comment on above: Performed By: #### C BC #### [facility] [address] [place] [address] Dr. Bertha Oden IG # 0.03 10e3/ul Normal 0.00-0.03 [facility] Comment on above: Performed By: #### C BC #### [facility] [address] [place] [address] Dr. Bertha Oden IG % 0.3 % Normal 0.0-0.5 [facility] Comment on above: Performed By: #### C BC #### [facility] [address] [place] [address] Dr. eBrtha Oden LYMPH # 0.9 103/ul Critically low 1.2-3.8 [facility] Comment on above: Performed By: #### C BC #### [facility] [address] [place] [address] Dr. Bertha Oden Lymphocytes/100 WBC (Bld) 10.6 % Critically low 20.5-60.0 [facility] Comment on above: Performed By: #### C BC #### [facility] [address] [place] [address] Dr. Bertha Oden MANUAL DIFF REQ NO Normal [facility] Comment on above: Performed By: #### C BC #### [facility] [address] [place] [address] Dr. Bertha Oden MCH (RBC) [Entitic mass] 25.8 pg Critically low 25.9-34.0 [facility] Comment on above: Performed By: #### C BC #### [facility] [address] [place] [address] Dr. Bertha Oden MCHC (RBC) [Mass/Vol] 30.6 g/dL Normal 29.9-35.2 [facility] Comment on above: Performed By: #### C BC #### [facility] [address] [place] [address] Dr. Bertha Oden MCV (RBC) [Entitic vol] 84.3 fL Normal 80.0-94.0 [facility] Comment on above: Performed By: #### C BC #### [facility] [address] [place], [place] [phone] Dr. Bertha Oden MONO # 0.8 103/ul Normal 0.3-0.8 [facility] Comment on above: Performed By: #### C BC #### [facility] [address] [place] [address] Dr. Bertha dOen Monocytes/100 WBC (Bld) 9.5 % Normal 1.7-12.0 [facility] Comment on above: Performed By: #### C BC #### [facility] [address] [place] [address] Dr. Bertha Oden NEUT # 6.8 103/ul Critically high 1.4-6.5 [facility] Comment on above: Performed By: #### C BC #### [facility] [address] [place] [address] Dr. Bertha Oden Neutrophils/100 WBC (Bld) 78.1 % Critically high 43.0-75.0 [facility] Comment on above: Performed By: #### C BC #### [facility] [address] [place] [address] Dr. Bertha Oden Platelet mean volume (Bld) [Entitic vol] 9.5 fL Normal 9.5-13.5 [facility] Comment on above: Performed By: #### C BC #### [facility] [address] [place] [address] Dr. Bertha Oden PLT 285 103/ul Normal 150-450 [facility] Comment on above: Performed By: #### C BC #### [facility] [address] [place] [address] Dr. Bertha Oden RBC 4.84 106/ul Normal 4.70-6.10 [facility] Comment on above: Performed By: #### C BC #### [facility] [address] [place] [address] Dr. Bertha Oden WBC 8.7 103/ul Normal 4.0-11.0 [facility] Comment on above: Performed By: #### C BC #### [facility] [address] [place] [address] Dr. Bertha Oden CRPon 12-29-2022 CRP 2.9 mg/dL Critically high <=1.0 [facility] Comment on above: Performed By: #### B MP, URIC, CRP #### [facility] [address] [address] [address] Bertha Oden PROF CHEM 8 (BAS METB)on Anion gap [Moles/Vol] 15.0 mmol/L Normal [facility] Comment on above: Performed By: #### B MP, URIC, CRP #### [facility] [address] [place] [address] Dr. Bertha Oden Calcium [Mass/Vol] 9.3 mg/dL Normal 8.5-10.1 [facility] Comment on above: Performed By: #### B MP, URIC, CRP #### [facility] [address] [place] [address] Dr. Bertha Oden Chloride [Moles/Vol] 102 mmol/L Normal 98-107 [facility] Comment on above: Performed By: #### B MP, URIC, CRP #### [facility] [address] [address] [address] Bertha Oden CO2 [Moles/Vol] 26.6 mmol/L Normal 21.0-32.0 [facility] Comment on above: Performed By: #### B MP, URIC, CRP #### [facility] [address] [address] [address] Bertha Oden Creatinine [Mass/Vol] 1.99 mg/dL Critically high 0.70-1.30 [facility] Comment on above: Performed By: #### B MP, URIC, CRP #### [facility] [address] [address] [address] Bertha Oden EGFR-AF [place] 41 mL/min/1.73m2 Critically low >=60 [facility] Comment on above: Performed By: #### B MP, URIC, CRP #### [facility] [address] [address] [address] Bertha Oden EGFR-NON AF [place] 34 mL/min/1.73m2 Critically low >=60 [facility] Comment on above: Performed By: #### B MP, URIC, CRP #### [facility] [address] [address] [address] Bertha Oden Glucose [Mass/Vol] 183 mg/dL Critically high 74-106 [facility] Comment on above: Performed By: #### B MP, URIC, CRP #### [facility] [address] [place] [address] Dr. Bertha Oden Potassium [Moles/Vol] 4.6 mmol/L Normal 3.5-5.1 [facility] Comment on above: Performed By: #### B MP, URIC, CRP #### [facility] [address] [place] [address] Dr. Bertha Oden Sodium [Moles/Vol] 139 mmol/L Normal 136-145 [facility] Comment on above: Performed By: #### B MP, URIC, CRP #### [facility] [address] [place] [address] Dr. Bertha Oden Urea nitrogen [Mass/Vol] 45.0 mg/dL Critically high 7.0-18.0 [facility] Comment on above: Performed By: #### B MP, URIC, CRP #### [facility] [address] [place] [address] Dr. Bertha Oden Urea nitrogen/Creatinine [Mass ratio] 22.6 mg/mg Normal [facility] Comment on above: Performed By: #### B MP, URIC, CRP #### [facility] [address] [place] [address] Dr. Bertha Oden SED [facility] SED RATE 36 mm/hr Critically high <=20 [facility] Comment on above: Performed By: #### S EDR #### [facility] [address] [place] [address] Dr. Bertha Oden URIC ACID SERUMon 12-29-2022 Urate [Mass/Vol] 9.3 mg/dL Critically high 3.5-7.2 [facility] Comment on above: Performed By: #### B MP, URIC, CRP #### [facility] [address] [place] [address] Dr. Bertha Oden XR HAND LT MIN 3Von 12-30-19 23 XR HAND LT MIN 3V EXAM: XR HAND LT MIN 3V HISTORY: Pain COMPARISON: None. TECHNIQUE: 3 views of the left hand FINDINGS: No acute fracture is seen. Joint alignment is normal. Joint spaces are preserved. Soft tissue swelling is seen about the left hand. Vascular calcification is seen. IMPRESSION: No acute fracture or malalignment. Soft tissue swelling of the left hand. Vascular calcification. Electronically authenticated by: LIONEL NICHOLS Date: 2022-12-29 21:02 Normal [facility] [employer]INRon 11-23-2022 INR Coag (Bld) [Relative time] 2.4 {INR} [employer] Work Phone: [employer] Work Phone: [employer] 10-26-2022 INR Coag (Bld) [Relative time] 3.1 {INR} [employer] Work Phone: [employer] Work Phone: [employer] 09-21-2022 INR Coag (Bld) [Relative time] 2.3 {INR} [employer] Work Phone: [employer] Work Phone: US DOPPLER CAROTIDon 023 US DOPPLER CAROTID Patient Info Name: BARAK FOSTER Age: 66 years : 1955 Gender: Male Exam Date: 08/26/2022 2:32 PM Patient Status: Outpatient Pattern Clerk: Gaby Adkins, EVA, RVT Referring Physician: Shahab Buckley MD, [facility]; Indications I65.21 - Occlusion and stenosis of right carotid artery Procedure Description [id number] Duplex examination using B-mode, color and spectral Doppler of extracranial arteries; complete bilateral study. NASCET criteria is used when performing imaging correlation with carotid duplex interpretation. Conclusions * Right. * The right internal carotid artery stent is patent with a maximum peak systolic velocity of 48 cm/s. * No evidence of stenosis in the right common carotid, external carotid and subclavian artery. * Right vertebral artery is patent with antegrade flow. * Left. * Less than 50% stenosis in the left internal carotid artery,however via grayscale imaging greater than 50% stenosis is likely. * Percent stenosis may be underestimated due to calcific shadowing. * No evidence of stenosis in the left common carotid, external carotid and subclavian arteries. * Left vertebral artery is patent with retrograde flow. Measurements Name Value Right PSV Right Prox CCA PSV 40 cm/s Right Mid CCA PSV 31 cm/s Right Distal CCA PSV 24 cm/s Right Prox ICA PSV 56 cm/s Right Mid ICA PSV 33 cm/s Right Distal ICA PSV 29 cm/s Right ECA PSV 198 cm/s Right Vert PSV 45 cm/s BC PSV 30 cm/s Right Prox SCA PSV 55 cm/s Rt ICA/CCA Ratio 1.7 Measurements Name Value Right EDV Right Prox CCA EDV 5 cm/s Right Mid CCA EDV 5 cm/s Right Distal CCA EDV 3 cm/s Right Prox ICA EDV 16 cm/s Right Mid ICA EDV 12 cm/s Right Distal ICA EDV 12 cm/s Right ECA EDV 12 cm/s Right Vert EDV 16 cm/s BC EDV 4 cm/s Right Prox SCA EDV 6 cm/s Stent(s) Measurements Name Value EDV Rt Prox [place] Vessel EDV 6 cm/s Rt Stent Origin EDV 5 cm/s Rt Mid Stent EDV 16 cm/s Rt Distal Stent EDV 16 cm/s Rt Distal Sob[place] Vessel EDV 15 cm/s Stent(s) Measurements Name Value PSV Rt Prox [place] Vessel PSV 25 cm/s Rt Stent Origin PSV 25 cm/s Rt Mid Stent PSV 43 cm/s Rt Distal Stent PSV 48 cm/s Rt Distal Sob[place] Vessel PSV 45 cm/s Measurements Name Value Left PSV Left Prox CCA PSV 41 cm/s Left Mid CCA PSV 35 cm/s Left Distal CCA PSV 36 cm/s Left Prox ICA PSV 49 cm/s Left Mid ICA PSV 73 cm/s Left Distal ICA PSV 44 cm/s Left ECA PSV 137 cm/s Left Prox SCA PSV 46 cm/s Lt ICA/CCA Ratio 1.4 Measurements Name Value Left EDV Left Prox CCA EDV 7 cm/s Left Mid CCA EDV 9 cm/s Left Distal CCA EDV 12 cm/s Left Prox ICA EDV 15 cm/s Left Mid ICA EDV 26 cm/s Left Distal ICA EDV 16 cm/s Left ECA EDV 13 cm/s Left Prox SCA EDV 11 cm/s Right Findings * No plaque noted in the right common carotid artery. * Calcific plaque noted in the right external carotid artery. * No plaque noted in the right internal carotid artery. Left Findings * Heterogeneous plaque noted in the left common carotid artery. * Calcific plaque noted in the left internal carotid artery. * Calcific plaque noted in the left external carotid artery. Prior Study Date: 02/11/2022 Risk Factors Patient has a history of hypertension and diabetes. CKD. . Report Signatures Finalized by Khurram Hinds MD on 08/26/2022 03:46 PM Normal [facility] Ambulatory US DOPPLER CAROTID Patient Info Name: BARAK FOSTER Age: 66 years : 1955 Gender: Male Exam Date: 08/26/2022 2:32 PM Patient Status: Outpatient Pattern Clerk: Gaby Adkins, EVA, T Referring Physician: Shahab Buckley MD, [facility]; Indications I65.21 - Occlusion and stenosis of right carotid artery Procedure Description 35458 Duplex examination using B-mode, color and spectral Doppler of extracranial arteries; complete bilateral study. NASCET criteria is used when performing imaging correlation with carotid duplex interpretation. Conclusions * Right. * The right internal carotid artery stent is patent with a maximum peak systolic velocity of 48 cm/s. * No evidence of stenosis in the right common carotid, external carotid and subclavian artery. * Right vertebral artery is patent with antegrade flow. * Left. * Less than 50% stenosis in the left internal carotid artery,however via grayscale imaging greater than 50% stenosis is likely. * Percent stenosis may be underestimated due to calcific shadowing. * No evidence of stenosis in the left common carotid, external carotid and subclavian arteries. * Left vertebral artery is patent with retrograde flow. Measurements Name Value Right PSV Right Prox CCA PSV 40 cm/s Right Mid CCA PSV 31 cm/s Right Distal CCA PSV 24 cm/s Right Prox ICA PSV 56 cm/s Right Mid ICA PSV 33 cm/s Right Distal ICA PSV 29 cm/s Right ECA PSV 198 cm/s Right Vert PSV 45 cm/s BC PSV 30 cm/s Right Prox SCA PSV 55 cm/s Rt ICA/CCA Ratio 1.7 Measurements Name Value Right EDV Right Prox CCA EDV 5 cm/s Right Mid CCA EDV 5 cm/s Right Distal CCA EDV 3 cm/s Right Prox ICA EDV 16 cm/s Right Mid ICA EDV 12 cm/s Right Distal ICA EDV 12 cm/s Right ECA EDV 12 cm/s Right Vert EDV 16 cm/s BC EDV 4 cm/s Right Prox SCA EDV 6 cm/s Stent(s) Measurements Name Value EDV Rt Prox [place] Vessel EDV 6 cm/s Rt Stent Origin EDV 5 cm/s Rt Mid Stent EDV 16 cm/s Rt Distal Stent EDV 16 cm/s Rt Distal Sob[place] Vessel EDV 15 cm/s Stent(s) Measurements Name Value PSV Rt Prox Sob[place] Vessel PSV 25 cm/s Rt Stent Origin PSV 25 cm/s Rt Mid Stent PSV 43 cm/s Rt Distal Stent PSV 48 cm/s Rt Distal [place] Vessel PSV 45 cm/s Measurements Name Value Left PSV Left Prox CCA PSV 41 cm/s Left Mid CCA PSV 35 cm/s Left Distal CCA PSV 36 cm/s Left Prox ICA PSV 49 cm/s Left Mid ICA PSV 73 cm/s Left Distal ICA PSV 44 cm/s Left ECA PSV 137 cm/s Left Prox SCA PSV 46 cm/s Lt ICA/CCA Ratio 1.4 Measurements Name Value Left EDV Left Prox CCA EDV 7 cm/s Left Mid CCA EDV 9 cm/s Left Distal CCA EDV 12 cm/s Left Prox ICA EDV 15 cm/s Left Mid ICA EDV 26 cm/s Left Distal ICA EDV 16 cm/s Left ECA EDV 13 cm/s Left Prox SCA EDV 11 cm/s Right Findings * No plaque noted in the right common carotid artery. * Calcific plaque noted in the right external carotid artery. * No plaque noted in the right internal carotid artery. Left Findings * Heterogeneous plaque noted in the left common carotid artery. * Calcific plaque noted in the left internal carotid artery. * Calcific plaque noted in the left external carotid artery. Prior Study Date: 02/11/2022 Risk Factors Patient has a history of hypertension and diabetes. CKD. . Report Signatures Finalized by Khurram Hinds MD on 08/26/2022 03:46 PM Dictated by: KHURRAM HINDS on MonAug 26, 2022 3:48:49 PM EST Transcribed by: KHURRAM HINDS on MonAug 26, 2022 3:48:49 PM EST Finalized by: KHURRAM HINDS on MonAug 26, 2022 3:48:49 PM EST Normal [facility] Ambulatory Protime-INRon 08-24-2022 INR Coag (Bld) [Relative time] 3.2 {INR} [employer] [employer] Work Phone: [employer] Work Phone: Protime-INRon 07-27-2022 INR Coag (Bld) [Relative time] 3.9 {INR} [facility] [employer] Work Phone: [facility] [employer] Work Phone: Protime-INRon 06-01-2022 INR Coag (Bld) [Relative time] 4.2 {INR} [employer] Work Phone: [facility] [employer] Work Phone: Protime-INRon 04-27-2022 INR Coag (Bld) [Relative time] 2 {INR} [facility] [employer] [facility] Work Phone: [facility] [employer] Work Phone: Protime-INRon 03-30-2022 INR Coag (Bld) [Relative time] 2.3 {INR} [facility] Work Phone: [facility] [employer] Work Phone: Protime-INRon 03-16-2022 INR Coag (Bld) [Relative time] 1.8 {INR} [employer] Work Phone: [employer] Work Phone: Protime-INRon 03-02-2022 INR Coag (Bld) [Relative time] 1.8 {INR} [employer] Work Phone: [employer] Work Phone: XR CHEST (2 VW)on 02-23-2022 Mild cardiomegaly with left AICD. No acute cardiopulmonary abnormality. [facility] EXAM: XR CHEST (2 VW ). HISTORY: I25.10. CAD. I10 hypertension. COMPARISON: 12/28/2021 chest. TECHNIQUE: PA and lateral views. FINDINGS: Heart size is mildly prominent. There is a left single lead AICD in place. Aortic arch calcification is present. Central vasculature is satisfactory. Lung arguelles are expanded without infiltration, consolidation, edema, or effusion. Osseous structures appear intact. [facility] Guru Ramos, - 02/23/2022 EXAM: XR CHEST (2 VW). HISTORY: I25.10. CAD. I10 hypertension. COMPARISON: 12/28/2021 chest. TECHNIQUE: PA and lateral views. FINDINGS: Heart size is mildly prominent. There is a left single lead AICD in place. Aortic arch calcification is present. Central vasculature is satisfactory. Lung arguelles are expanded without infiltration, consolidation, edema, or effusion. Osseous structures appear intact. IMPRESSION: Mild cardiomegaly with left AICD. No acute cardiopulmonary abnormality. [employer] Work Phone: XR CHEST (2 VW)Ordered By: Beni Ramos on 02-23-2022 [employer] Work Phone: CBC Auto Differentialon 02-04 Absolute Eos # 0.20 [facility] [employer] Absolute Lymph # 1.60 [facility] [employer] Absolute [place] # 0.80 [facility] [employer] Basophils (Bld) [#/Vol] 0.10 10*3/uL [facility] Basophils/100 WBC (Bld) 1 % 0 - 2 % [facility] Differential Type YES [facility] Eosinophils/100 WBC (Bld) 2 % 0 - 5 % [facility] Hematocrit (Bld) [Volume fraction] 38.3 % Low 41 - 53 % [facility] Hemoglobin (Bld) [Mass/Vol] 12.9 g/dL Low 13.5 - 17.5 g/dL [facility] Interpretation and review of laboratory results Abnormal [facility] Lymphocytes/100 WBC (Bld) 18 % 13 - 44 % [facility] MCH (RBC) [Entitic mass] 29.7 pg 26 - 34 pg [facility] MCHC (RBC) [Mass/Vol] 33.5 g/dL 31 - 3 7 g/dL [facility] MCV (RBC) [Entitic vol] 88.6 fL 80 - 100 fL [facility] Monocytes/100 WBC (Bld) 10 % High 5 - 9 % [facility] Platelet distribution width (Bld) [Ratio] 17.7 % High 12.1 - 15.2 % [facility] Platelets (Bld) [#/Vol] 239 10*3/uL [facility] RBC (Bld) [#/Vol] 4.33 10*6/uL Low 4.5 - 5.9 m/uL [facility] Segmented neutrophils/100 WBC (Bld) 69 % 39 - 75 % [facility] Segs Absolute 6.10 [facility] WBC (Bld) [#/Vol] 8.7 10*3/uL [facility] Comprehensive Metabolic Pane yonis 02-22-2022 Albumin [Mass/Vol] 4.1 g/dL 3.5 - 5.2 g/dL [facility] ALP (Bld) [Catalytic activity/Vol] 66 U/L 40 - 129 U/L [facility] ALT [Catalytic activity/Vol] 18 U/L 5 - 41 U/L [facility] Anion gap [Moles/Vol] 13 mmol/L 9 - 17 mmol/L [facility] AST [Catalytic activity/Vol] 16 U/L NINF - 40 U/L [facility] Bilirubin [Mass/Vol] 1.09 mg/dL 0.3 - 1 .2 mg/dL [facility] Calcium [Mass/Vol] 10.0 mg/dL 8.6 - 10. 4 mg/dL [facility] Chloride [Moles/Vol] 101 mmol/L 98 - 10 7 mmol/L [facility] CO2 [Moles/Vol] 26 mmol/L 20 - 31 mmol/L [facility] Creatinine [Mass/Vol] 1.59 mg/dL High 0.7 - 1.2 mg/dL [facility] Free PSA/Total PSA [Mass fraction] 7.2 g/dL 6.4 - 8.3 g/dL [facility] GFR 53 mL/min Low 60 - PI NF mL/min [facility] GFR Non- 44 mL/min Low 60 - PINF mL/min [facility] GFR/1.73 sq M.predicted MDRD (S/P/Bld) [Vol rate/Area] [facility] Comment on above: Average GFR for 60-6 9 years old: 85 mL/min/1.73sq m Chronic Kidney Disease: <60 mL/min/1.73sq m Kidney failure: <15 mL/min/1.73sq m eGFR calculated using average adult body mass. Additional eGFR calculator available at: http://www.LineHop/multiple_crcl_2011.htm Glucose [Mass/Vol] 97 mg/dL 70 - 99 mg/dL [facility] Interpretation and review of laboratory results Abnormal [facility] Potassium [Moles/Vol] 4.7 mmol/L 3.7 - 5.3 mmol/L [facility] Sodium [Moles/Vol] 140 mmol/L 135 - 144 mmol/L [facility] Urea nitrogen (BldV) [Mass/Vol] 32 mg/dL High 8 - 23 mg/dL [facility] Urea nitrogen/Creatinine (Bld) [Mass ratio] 20 9 - 20 [facility] Hemoglobin A1Con 02-22-2022 Glucose [Mass/Vol] 146 mg/dL [facility] [employer] [facility] Comment on above: The ADA and [facility] rec ommend providing the estimated average glucose result to permit better patient understanding of their HBA1c result. HbA1c (Bld) [Mass fraction] 6.7 % High 4 - 6 % [facility] [employer] [facility] Interpretation and review of laboratory results Abnormal [facility] Glucose [Mass/Vol] 146 mg/dL [facility] Comment on above: The ADA and [facility] rec ommend providing the estimated average glucose result to permit better patient understanding of their HBA1c result. HbA1c (Bld) [Mass fraction] 6.7 % High 4 - 6 % [facility] [employer] [facility] Interpretation and review of laboratory results Abnormal [facility] Lipid Panelon 02-22-2022 Cholesterol [Mass/Vol] 128 mg/dL NINF - 200 mg/dL [facility] [employer] [facility] Comment on above: Cholesterol Guidelines: <200 Desirable 200-240 Borderline >240 Undesirable Cholesterol in HDL [Mass/Vol] 32 mg/dL Low 40 - PINF mg/dL [facility] [employer] Comment on above: HDL Guidelines: <40 Undesirable 40-59 Borderline >59 Desirable Cholesterol in LDL [Mass/Vol] 52 mg/dL 0 - 130 mg/dL [facility] [employer] Comment on above: LDL Guidelines: <100 Desirable 100-129 Near to/above Desirable 130-159 Borderline >159 Undesirable Direct (measured) LDL and calculated LDL are not interchangeable tests. Cholesterol.total/Cho lesterol in HDL [Mass ratio] 4 {ratio} NINF - 5 [facility] Interpretation and review of laboratory results Abnormal [facility] Triglyceride [Mass/Vol] 222 mg/dL High NINF - 150 mg/dL [facility] [employer] [facility] Comment on above: Triglyceride Guidelines: <150 Desirable 150-199 Borderline 200-499 High >499 Very high Based on AHA Guidelines for fasting triglyceride, May 2012. [facility] [employer] Magnesiumon 02-22-2022 Magnesium [Mass/Vol] 1.6 mg/dL 1.6 - 2 .6 mg/dL [facility] No Panel Informationon 02-22 [facility] Case [facility] Patient Fasting?on 2 Patient Fasting? YES [facility] [employer] Protime-INRon 02-22-2022 INR Coag (Bld) [Relative time] 1.4 {INR} [employer] Work Phone: [employer] Work Phone: TSH with Reflexon 02-22-2022 TSH Qn 2.10 m[IU]/L [employer] Vitamin D 25 Hydroxyon 02-22 Vit D, 25-Hydroxy 54.9 ng/mL 29.9 - PIN F ng/mL [employer] Comment on above: Reference Range: Vitamin D status Range Deficiency <20 ng/mL Mild Deficiency 20-30 ng/mL Sufficiency 30-100 ng/mL Toxicity >100 ng/mL [employer] XR CHEST (2 VW)on 02-22-2022 Radiology Study observation (narrative) [employer] Work Phone: US DOPPLER CAROTIDon 022 US DOPPLER CAROTID Patient Info Name: BARAK FOSTER Age: 66 years : 1955 Gender: Male Exam Date: 02/11/2022 3:23 PM Patient Status: Outpatient Pattern Clerk: Gaby Adkins RDMS, RVT Referring Physician: MARY JANE RODRIGUEZ ; Indications I65.21 - Occlusion and stenosis of right carotid artery Procedure Description 53766 Duplex examination using B-mode, color and spectral Doppler of extracranial arteries; complete bilateral study. NASCET criteria is used when performing imaging correlation with carotid duplex interpretation. Conclusions * Right. * The right internal carotid artery stent is patent with a maximum peak systolic velocity of 45 cm/s. * No evidence of stenosis in the right common carotid, external carotid and subclavian arteries. * Right vertebral artery is patent with antegrade flow. * Left. * Less than 50% stenosis in the left internal carotid artery via criteria, however via grayscale imaging greater than 50% stenosis is likely. * No evidence of stenosis in the left common carotid, external carotid and subclavian arteries. * Left vertebral artery is patent with retrograde flow. Measurements Name Value Right PSV Right Prox CCA PSV 34 cm/s Right Mid CCA PSV 57 cm/s Right Distal CCA PSV 30 cm/s Right Prox ICA PSV 48 cm/s Right Mid ICA PSV 43 cm/s Right Distal ICA PSV 43 cm/s Right ECA PSV 179 cm/s Right Vert PSV 64 cm/s BC PSV 62 cm/s Right Prox SCA PSV 46 cm/s Rt ICA/CCA Ratio 1.6 Measurements Name Value Right EDV Right Prox CCA EDV 5 cm/s Right Mid CCA EDV 7 cm/s Right Distal CCA EDV 8 cm/s Right Prox ICA EDV 19 cm/s Right Mid ICA EDV 18 cm/s Right Distal ICA EDV 26 cm/s Right ECA EDV 12 cm/s Right Vert EDV 28 cm/s BC EDV 7 cm/s Right Prox SCA EDV 12 cm/s Stent(s) Measurements Name Value EDV Rt Prox Sob[place] Vessel EDV 8 cm/s Rt Stent Origin EDV 9 cm/s Rt Mid Stent EDV 17 cm/s Rt Distal Stent EDV 15 cm/s Rt Distal Soboba Vessel EDV 18 cm/s Stent(s) Measurements Name Value PSV Rt Prox [place] Vessel PSV 34 cm/s Rt Stent Origin PSV 30 cm/s Rt Mid Stent PSV 40 cm/s Rt Distal Stent PSV 45 cm/s Rt Distal [place] Vessel PSV 48 cm/s Measurements Name Value Left PSV Left Prox CCA PSV 50 cm/s Left Mid CCA PSV 51 cm/s Left Distal CCA PSV 58 cm/s Left Prox ICA PSV 87 cm/s Left Mid ICA PSV 97 cm/s Left Distal ICA PSV 62 cm/s Left ECA PSV 195 cm/s Left Prox SCA PSV 45 cm/s Lt ICA/CCA Ratio 1.5 Measurements Name Value Left EDV Left Prox CCA EDV 14 cm/s Left Mid CCA EDV 16 cm/s Left Distal CCA EDV 14 cm/s Left Prox ICA EDV 30 cm/s Left Mid ICA EDV 36 cm/s Left Distal ICA EDV 25 cm/s Left ECA EDV 21 cm/s Left Prox SCA EDV 10 cm/s Right Findings * No plaque noted in the right common carotid artery. * Calcific plaque noted in the right external carotid artery. * No plaque noted in the right internal carotid artery. Left Findings * Heterogeneous plaque noted in the left common carotid artery. * Heterogeneous plaque noted in the left internal carotid artery. * Heterogeneous plaque noted in the left external carotid artery. Risk Factors right T-CAR. Patient has a history of hypertension and diabetes. ckd. . Report Signatures Finalized by Odell Peralta MD on 02/11/2022 04:27 PM Normal [facility] Ambulatory US DOPPLER CAROTID Patient Info Name: BARAK FOSTER Age: 66 years : 1955 Gender: Male Exam Date: 02/11/2022 3:23 PM Patient Status: Outpatient Pattern Clerk: Gaby Adkins RDMS, RVT Referring Physician: MARY JANE RODRIGUEZ ; Indications I65.21 - Occlusion and stenosis of right carotid artery Procedure Description 53264 Duplex examination using B-mode, color and spectral Doppler of extracranial arteries; complete bilateral study. NASCET criteria is used when performing imaging correlation with carotid duplex interpretation. Conclusions * Right. * The right internal carotid artery stent is patent with a maximum peak systolic velocity of 45 cm/s. * No evidence of stenosis in the right common carotid, external carotid and subclavian arteries. * Right vertebral artery is patent with antegrade flow. * Left. * Less than 50% stenosis in the left internal carotid artery via criteria, however via grayscale imaging greater than 50% stenosis is likely. * No evidence of stenosis in the left common carotid, external carotid and subclavian arteries. * Left vertebral artery is patent with retrograde flow. Measurements Name Value Right PSV Right Prox CCA PSV 34 cm/s Right Mid CCA PSV 57 cm/s Right Distal CCA PSV 30 cm/s Right Prox ICA PSV 48 cm/s Right Mid ICA PSV 43 cm/s Right Distal ICA PSV 43 cm/s Right ECA PSV 179 cm/s Right Vert PSV 64 cm/s BC PSV 62 cm/s Right Prox SCA PSV 46 cm/s Rt ICA/CCA Ratio 1.6 Measurements Name Value Right EDV Right Prox CCA EDV 5 cm/s Right Mid CCA EDV 7 cm/s Right Distal CCA EDV 8 cm/s Right Prox ICA EDV 19 cm/s Right Mid ICA EDV 18 cm/s Right Distal ICA EDV 26 cm/s Right ECA EDV 12 cm/s Right Vert EDV 28 cm/s BC EDV 7 cm/s Right Prox SCA EDV 12 cm/s Stent(s) Measurements Name Value EDV Rt Prox [place] Vessel EDV 8 cm/s Rt Stent Origin EDV 9 cm/s Rt Mid Stent EDV 17 cm/s Rt Distal Stent EDV 15 cm/s Rt Distal Sob[place] Vessel EDV 18 cm/s Stent(s) Measurements Name Value PSV Rt Prox [place] Vessel PSV 34 cm/s Rt Stent Origin PSV 30 cm/s Rt Mid Stent PSV 40 cm/s Rt Distal Stent PSV 45 cm/s Rt Distal [place] Vessel PSV 48 cm/s Measurements Name Value Left PSV Left Prox CCA PSV 50 cm/s Left Mid CCA PSV 51 cm/s Left Distal CCA PSV 58 cm/s Left Prox ICA PSV 87 cm/s Left Mid ICA PSV 97 cm/s Left Distal ICA PSV 62 cm/s Left ECA PSV 195 cm/s Left Prox SCA PSV 45 cm/s Lt ICA/CCA Ratio 1.5 Measurements Name Value Left EDV Left Prox CCA EDV 14 cm/s Left Mid CCA EDV 16 cm/s Left Distal CCA EDV 14 cm/s Left Prox ICA EDV 30 cm/s Left Mid ICA EDV 36 cm/s Left Distal ICA EDV 25 cm/s Left ECA EDV 21 cm/s Left Prox SCA EDV 10 cm/s Right Findings * No plaque noted in the right common carotid artery. * Calcific plaque noted in the right external carotid artery. * No plaque noted in the right internal carotid artery. Left Findings * Heterogeneous plaque noted in the left common carotid artery. * Heterogeneous plaque noted in the left internal carotid artery. * Heterogeneous plaque noted in the left external carotid artery. Risk Factors right T-CAR. Patient has a history of hypertension and diabetes. ckd. . Report Signatures Finalized by Odell Peralta MD on 02/11/2022 04:27 PM Dictated by: ODELL PERALTA on MonFeb 11, 2022 4:28:34 PM EDT Transcribed by: ODELL PERALTA on MonFeb 11, 2022 4:28:34 PM EDT Finalized by: ODELL PERALTA on MonFeb 11, 2022 4:28:34 PM EDT Normal [facility] Ambulatory Protime-INRon 02-03-2022 INR Coag (Bld) [Relative time] 2.1 {INR} [employer] Work Phone: [employer] Work Phone: Protime-INRon 01-27-2022 INR Coag (Bld) [Relative time] 6.8 {INR} [employer] Work Phone: [employer] Work Phone: Protime-INRon 01-20-2022 INR Coag (Bld) [Relative time] 2.6 {INR} [employer] Work Phone: [email or web address] Phone: Protime-INRon 01-13-2022 INR Coag (Bld) [Relative time] 6.2 {INR} [employer] Work Phone: [employer] Work Phone: VL DUP UPPER EXTREMITY VENOU S LEFTon 01-08-2022 Radiology exam is complete. No Radiologist dictation. Please follow up with ordering provider. MHPN M[facility] CPA Protime-INRon 01-06-2022 INR Coag (Bld) [Relative time] 2.5 {INR} [employer] Work Phone: [employer] Work Phone: ECG 12 Leadon 12-29-2021 Atrial Rate 89 BPM [facility] P [place] [facility] 82 degrees [facility] P-R Interval 184 ms [facility] Q-T Interval 368 ms [facility] QRS Duration 114 ms [facility] QTC Calculation (Bezet) 447 ms [facility] R [facility] -20 degrees [facility] T [facility] 58 degrees [facility] Ventricular Rate 89 BPM [facility] Sinus rhythm with occasional Premature ventricular complexes and Fusion complexes Incomplete left bundle branch block Nonspecific T wave abnormality Abnormal ECG Confirmed by Allan Jasso MD ([id number]) on 12/29/2021 1:09:48 PM [facility] ECHOCARDIOGRAM COMPLETE W CO Radha 12-29-2021 ECHOCARDIOGRAM COMPLETE W CONTRAST Patient Info Name: BARAK FOSTER Age: 66 years : 1955 Gender: Male Ht: 180 cm Wt: 108 kg BSA: 2.36 m2 HR: 71 bpm BP: 117 / 77 mmHg Heart Rhythm: Sinus Rhythm Technical Quality: Technically difficult Exam Date: 12/29/2021 10:12 AM Patient Status: Inpatient Overlock Collar Setter: Sara Abraham RCDS Exam Type: ECHOCARDIOGRAM COMPLETE W CONTRAST Study Info Indications I50.20 - Unspecified systolic (congestive) heart failure Referring Physician: SNEHAL Enriquez; [id number] BMI: 33.33 kg/m2 Summary 1. Severe left ventricular concentric hypertrophy. 2. Left ventricular chamber dimension is enlarged. 3. There is global LV dysfunction with segmental variation as detailed below. 4. Left ventricular systolic function is severely reduced with an ejection fraction by Biplane Method of Discs of 18 %. 5. Grade 2 diastolic dysfunction with impaired relaxation and elevated left ventricular filling pressures. 6. There is mild aortic annular calcification. 7. Patient is status post atrial septal defect repair. Cannot exclude residual [id number] shunt on color Doppler. 8. No left ventricular thrombus identified on Definity contrast. History/Risk Factors Hypertension: Yes Renal Disease: Yes Coronary Artery Disease (CAD) Yes Congestive Heart Failure (CHF): Hx CHF Cardiomyopathy/LV Systolic Dysfunction: Yes Diabetes Mellitus: Yes Tobacco Use: Never Family History: Diabetes Mellitus, Coronary Artery Disease History/Risk Factors Systolic heart failure, history of apical 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 (2012), history of ASD repair. Prior Interventions PCI: Yes ICD: Yes Procedure(s): Complete two-dimensional, color flow and Doppler transthoracic echocardiogram is performed. Definity explained to patient. Patient verbalizes understanding and agrees to proceed. Definity 1.3ml/8.7ml normal sterile saline 2 ml total given IV over 30-60 seconds. Left Ventricle Left ventricular chamber dimension is enlarged. Left ventricular systolic function is severely reduced with an ejection fraction by Biplane Method of Discs of 18 %. Severe left ventricular concentric hypertrophy. Left ventricular segmental wall motion is abnormal. The apex, and mid anterior wall are akinetic. The basal inferior wall, mid inferior wall, basal anterior wall, basal inferoseptal, mid inferoseptal, mid anterolateral wall, basal anteroseptal, mid anteroseptal, basal inferolateral wall, and mid inferolateral wall are hypokinetic. All other [place] appear normal. Grade 2 diastolic dysfunction with impaired relaxation and elevated left ventricular filling pressures. There is global LV dysfunction with segmental variation as detailed below. Right Ventricle Right ventricular chamber dimension is borderline enlarged. Right ventricular systolic function is normal. A pacemaker wire is seen in the right ventricle. Left Atria Left atrial chamber is mildly enlarged with a left atrial volume index of 36 ml/m2 by BP MOD. Right Atria Right atrial chamber dimension is mildly enlarged. Atrial Septum Patient is status post atrial septal defect repair. Cannot exclude residual rwqd-wv-kygsv shunt on color Doppler. Aortic Valve The aortic valve is trileaflet. There is no aortic valve sclerosis. There is mild aortic annular calcification. There is no aortic valve stenosis with a peak velocity of 1.1 m/s, mean gradient of 3 mmHg, and aortic valve area of 2.8 cm2. There is trace aortic valve regurgitation. Pulmonic Valve The pulmonic valve is normal. There is no pulmonic valve stenosis. There is trace pulmonic regurgitation. Mitral Valve The mitral valve has normal leaflets. There is no mitral valve stenosis. There is trace mitral valve regurgitation. Tricuspid Valve The tricuspid valve leaflets are normal. There is no significant tricuspid valve stenosis. There is trace tricuspid valve regurgitation. There is no pulmonary hypertension, estimated right ventricle systolic pressure is 28 mmHg. Pericardium/Pleural The pericardium appears normal. There is no pericardial effusion. Inferior Vena Cava Normal inferior vena cava with >50% collapse upon inspiration consistent with normal right atrial pressure. Aorta The aortic measurements are indexed to age and body surface area. The aortic root is dilated measuring 3.9 cm with an index of 1.6 cm/m2. The proximal ascending aorta is normal measuring 3.3 cm with an index of 1.4 cm/m2. Wall Motion Scoring Wall Motion Scoring Index: 2.29 Left Ventricular Outflow Tract Name Value Normal LVOT 2D LVOT Diameter 2.5 cm LVOT Doppler ---- (more content not included)... [facility] Comment on above: Order Comment: Systo lic heart failure Echocardiogram complete w co ntrastOrdered By: Sara Smith on 12-29-2021 Aortic valve area 2.7747 cm [facility] Work Phone: AV mean gradient 2.55256 mmHg [facility] Work Phone: AV peak gradient 4.35048 mmHg [facility] Work Phone: EF [phone] % [facility] Work Phone: [facility] Work Phone: Echocardiogram complete w co ntraston 12-29-2021 Patient Info Name: BARAK FOSTER Age: 66 years : 1955 Gender: Male Ht: 180 cm Wt: 108 kg BSA: 2.36 m2 HR: 71 bpm BP: 117 / 77 mmHg Heart Rhythm: Sinus Rhythm Technical Quality: Technically difficult Exam Date: 12/29/2021 10:12 AM Patient Status: Inpatient Overlock Collar Setter: Sara Abraham RCDS Exam Type: ECHOCARDIOGRAM COMPLETE W CONTRAST Study Info Indications I50.20 - Unspecified systolic (congestive) heart failure Referring Physician: SNEHAL Enriquez; [id number] BMI: 33.33 kg/m2 Summary 1. Severe left ventricular concentric hypertrophy. 2. Left ventricular chamber dimension is enlarged. 3. There is global LV dysfunction with segmental variation as detailed below. 4. Left ventricular systolic function is severely reduced with an ejection fraction by Biplane Method of Discs of 18 %. 5. Grade 2 diastolic dysfunction with impaired relaxation and elevated left ventricular filling pressures. 6. There is mild aortic annular calcification. 7. Patient is status post atrial septal defect repair. Cannot exclude residual uqvi-mh-oyfnj shunt on color Doppler. 8. No left ventricular thrombus identified on Definity contrast. History/Risk Factors Hypertension: Yes Renal Disease: Yes Coronary Artery Disease (CAD) Yes Congestive Heart Failure (CHF): Hx CHF Cardiomyopathy/LV Systolic Dysfunction: Yes Diabetes Mellitus: Yes Tobacco Use: Never Family History: Diabetes Mellitus, Coronary Artery Disease History/Risk Factors Systolic heart failure, history of apical 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 (2012), history of ASD repair. Prior Interventions PCI: Yes ICD: Yes Procedure(s): Complete two-dimensional, color flow and Doppler transthoracic echocardiogram is performed. Definity explained to patient. Patient verbalizes understanding and agrees to proceed. Definity 1.3ml/8.7ml normal sterile saline 2 ml total given IV over 30-60 seconds. Left Ventricle Left ventricular chamber dimension is enlarged. Left ventricular systolic function is severely reduced with an ejection fraction by Biplane Method of Discs of 18 %. Severe left ventricular concentric hypertrophy. Left ventricular segmental wall motion is abnormal. The apex, and mid anterior wall are akinetic. The basal inferior wall, mid inferior wall, basal anterior wall, basal inferoseptal, mid inferoseptal, mid anterolateral wall, basal anteroseptal, mid anteroseptal, basal inferolateral wall, and mid inferolateral wall are hypokinetic. All other [place] appear normal. Grade 2 diastolic dysfunction with impaired relaxation and elevated left ventricular filling pressures. There is global LV dysfunction with segmental variation as detailed below. Right Ventricle Right ventricular chamber dimension is borderline enlarged. Right ventricular systolic function is normal. A pacemaker wire is seen in the right ventricle. Left Atria Left atrial chamber is mildly enlarged with a left atrial volume index of 36 ml/m2 by BP MOD. Right Atria Right atrial chamber dimension is mildly enlarged. Atrial Septum Patient is status post atrial septal defect repair. Cannot exclude residual rbuy-yl-fozts shunt on color Doppler. Aortic Valve The aortic valve is trileaflet. There is no aortic valve sclerosis. There is mild aortic annular calcification. There is no aortic valve stenosis with a peak velocity of 1.1 m/s, mean gradient of 3 mmHg, and aortic valve area of 2.8 cm2. There is trace aortic valve regurgitation. Pulmonic Valve The pulmonic valve is normal. There is no pulmonic valve stenosis. There is trace pulmonic regurgitation. Mitral Valve The mitral valve has normal leaflets. There is no mitral valve stenosis. There is trace mitral valve regurgitation. Tricuspid Valve The tricuspid valve leaflets are normal. There is no significant tricuspid valve stenosis. There is trace tricuspid valve regurgitation. There is no pulmonary hypertension, estimated right ventricle systolic pressure is 28 mmHg. Pericardium/Pleural The pericardium appears normal. There is no pericardial effusion. Inferior Vena Cava Normal inferior vena cava with >50% collapse upon inspiration consistent with normal right atrial pressure. Aorta The aortic measurements are indexed to age and body surface area. The aortic root is dilated measuring 3.9 cm with an index of 1.6 cm/m2. The proximal ascending aorta is normal measuring 3.3 cm with an index of 1.4 cm/m2. Wall Motion Scoring Wall Motion Scoring Index: 2.29 Left Ventricular Outflow Tract Name Value Normal -- (more content not included)... FUJI SYNAPSE CV Sara Smith MD - 12/29/2021 Patient Info Name: BARAK FOSTER Age: 66 years : 1955 Gender: Male Ht: 180 cm Wt: 108 kg BSA: 2.36 m2 HR: 71 bpm BP: 117 / 77 mmHg Heart Rhythm: Sinus Rhythm Technical Quality: Technically difficult Exam Date: 12/29/2021 10:12 AM Patient Status: Inpatient Overlock Collar Setter: Sara Abraham RCDS Exam Type: ECHOCARDIOGRAM COMPLETE W CONTRAST Study Info Indications I50.20 - Unspecified systolic (congestive) heart failure Referring Physician: SNEHAL Enriquez; [id number] BMI: 33.33 kg/m2 Summary 1. Severe left ventricular concentric hypertrophy. 2. Left ventricular chamber dimension is enlarged. 3. There is global LV dysfunction with segmental variation as detailed below. 4. Left ventricular systolic function is severely reduced with an ejection fraction by Biplane Method of Discs of 18 %. 5. Grade 2 diastolic dysfunction with impaired relaxation and elevated left ventricular filling pressures. 6. There is mild aortic annular calcification. 7. Patient is status post atrial septal defect repair. Cannot exclude residual mgil-ds-dhjfk shunt on color Doppler. 8. No left ventricular thrombus identified on Definity contrast. History/Risk Factors Hypertension: Yes Renal Disease: Yes Coronary Artery Disease (CAD) Yes Congestive Heart Failure (CHF): Hx CHF Cardiomyopathy/LV Systolic Dysfunction: Yes Diabetes Mellitus: Yes Tobacco Use: Never Family History: Diabetes Mellitus, Coronary Artery Disease History/Risk Factors Systolic heart failure, history of apical 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 (2012), history of ASD repair. Prior Interventions PCI: Yes ICD: Yes Procedure(s): Complete two-dimensional, color flow and Doppler transthoracic echocardiogram is performed. Definity explained to patient. Patient verbalizes understanding and agrees to proceed. Definity 1.3ml/8.7ml normal sterile saline 2 ml total given IV over 30-60 seconds. Left Ventricle Left ventricular chamber dimension is enlarged. Left ventricular systolic function is severely reduced with an ejection fraction by Biplane Method of Discs of 18 %. Severe left ventricular concentric hypertrophy. Left ventricular segmental wall motion is abnormal. The apex, and mid anterior wall are akinetic. The basal inferior wall, mid inferior wall, basal anterior wall, basal inferoseptal, mid inferoseptal, mid anterolateral wall, basal anteroseptal, mid anteroseptal, basal inferolateral wall, and mid inferolateral wall are hypokinetic. All other [place] appear normal. Grade 2 diastolic dysfunction with impaired relaxation and elevated left ventricular filling pressures. There is global LV dysfunction with segmental variation as detailed below. Right Ventricle Right ventricular chamber dimension is borderline enlarged. Right ventricular systolic function is normal. A pacemaker wire is seen in the right ventricle. Left Atria Left atrial chamber is mildly enlarged with a left atrial volume index of 36 ml/m2 by BP MOD. Right Atria Right atrial chamber dimension is mildly enlarged. Atrial Septum Patient is status post atrial septal defect repair. Cannot exclude residual mjay-mt-rccbz shunt on color Doppler. Aortic Valve The aortic valve is trileaflet. There is no aortic valve sclerosis. There is mild aortic annular calcification. There is no aortic valve stenosis with a peak velocity of 1.1 m/s, mean gradient of 3 mmHg, and aortic valve area of 2.8 cm2. There is trace aortic valve regurgitation. Pulmonic Valve The pulmonic valve is normal. There is no pulmonic valve stenosis. There is trace pulmonic regurgitation. Mitral Valve The mitral valve has normal leaflets. There is no mitral valve stenosis. There is trace mitral valve regurgitation. Tricuspid Valve The tricuspid valve leaflets are normal. There is no significant tricuspid valve stenosis. There is trace tricuspid valve regurgitation. There is no pulmonary hypertension, estimated right ventricle systolic pressure is 28 mmHg. Pericardium/Pleural The pericardium appears normal. There is no pericardial effusion. Inferior Vena Cava Normal inferior vena cava with >50% collapse upon inspiration consistent with normal right atrial pressure. Aorta The aortic measurements are indexed to age and body surface area. The aortic root is dilated measuring 3.9 cm with an index of 1.6 cm/m2. The proximal ascending aorta is normal measuring 3.3 cm with an index of 1.4 cm/m2. Wall Motion Scoring Wall Motion Scoring Index: 2.29 Left Ventricular Outflow Tract Name Value Normal LVOT 2D (more content not included)... [facility] Radiology Study observation (narrative) [facility] Glucose (Bld) [Mass/Vol]on 0 12-29-2021 Glucose [Mass/Vol] 142 mg/dL High 65 - 99 mg/dL [facility] Interpretation and review of laboratory results Abnormal [facility] INR Coag (PPP) [Relative latrell e]on 12-29-2021 Interpretation and review of laboratory results Abnormal [facility] PT Coag (PPP) [Time] 16.0 s High [facility] During the induction phase of oral anticoagulation, the INR may not reflect the anticoagulation status of the patient. Therapeutic ranges for INR's are: Most clinical situations: INR 2.0-3.0 Mechanical Prosthetic Valve: INR 2.5-3.5 Critical: INR >5.0 [facility] PT/INRon 12-29-2021 INR Coag (PPP) [Relative time] 1.3 {INR} High 0.8 - 1.1 [facility] ACT Coag (Bld)on 12-28-2021 Kaolin activated time Qn (Bld) 387 seconds [facility] ANGIOGRAPHY IMAGING FOR ORon 12-28-2021 Please see OpNote in Notes tab for results. [facility] ANGIOGRAPHY IMAGING FOR OR Please see OpNote in Notes tab for results. Please see OpNote in Notes tab for results. Please see OpNote in Notes tab for results. Normal [facility] Radiology Study observation (narrative) [facility] ANGIOGRAPHY IMAGING FOR OROr dered By: Radiologist Generic on 12-28-2021 [facility] Electrolytes panel (Bld)on 12-28-2021 Anion gap [Moles/Vol] 11 mmol/L 10 - 2 0 mmol/L [facility] Chloride [Moles/Vol] 108 mmol/L 98 - 10 8 mmol/L [facility] HCO3 [Moles/Vol] 23 mmol/L 21 - 32 mmol/L [facility] Interpretation and review of laboratory results Abnormal [facility] Potassium [Moles/Vol] 5.2 mmol/L High 3.5 - 5.1 mmol/L [facility] Sodium [Moles/Vol] 137 mmol/L 135 - 145 mmol/L [facility] Glucose (Bld) [Mass/Vol]on 0 12-28-2021 Glucose [Mass/Vol] 160 mg/dL High 65 - 99 mg/dL [facility] Interpretation and review of laboratory results Abnormal [facility] Glucose [Mass/Vol] 117 mg/dL High 65 - 99 mg/dL [facility] Interpretation and review of laboratory results Abnormal [facility] Glucose [Mass/Vol] 137 mg/dL High 65 - 99 mg/dL [facility] Interpretation and review of laboratory results Abnormal [facility] INR Coag (PPP) [Relative latrell e]on 12-28-2021 Interpretation and review of laboratory results Abnormal [facility] PT Coag (PPP) [Time] 15.7 s High [facility] During the induction phase of oral anticoagulation, the INR may not reflect the anticoagulation status of the patient. Therapeutic ranges for INR's are: Most clinical situations: INR 2.0-3.0 Mechanical Prosthetic Valve: INR 2.5-3.5 Critical: INR >5.0 [facility] No Panel Informationon 12-28 [facility] PT/INRon 12-28-2021 INR Coag (PPP) [Relative time] 1.3 {INR} High 0.8 - 1.1 [facility] Troponin Onceon 12-28-2021 Troponin I 33 ng/L NINF - 59 ng/L [facility] Troponin I Interpretation Normal [facility] Troponin x 2 (Now and Repeat in 3 hours)on 12-28-2021 Interp Troponin I Delta Change Delta troponin requires at least 3 hours between collections. [facility] Troponin I 31 ng/L NINF - 59 ng/L [facility] XR CHEST PA/APon 12-28-2021 XR CHEST PA/AP EXAMINATION: XR CHEST PA/AP 12/28/2021 3:44 pm HISTORY: ORDERING SYSTEM PROVIDED HISTORY: significant heart history, TECHNOLOGIST PROVIDED HISTORY: Illness/Other Reason for exam: significant heart history Cancer History: u Surgery, RadiationHistory: u Encounter Type: Initial Additional signs and symptoms: ORDERING SYSTEM PROVIDED DIAGNOSIS CODES: I65.21 Symptomatic stenosis of right carotid artery COMPARISON: None. FINDINGS: Portable AP semi upright chest radiograph. The left subclavian approach AICD/pacemaker lead projects over the right ventricle. The generator pack is overlying the chest wall. The heart size is enlarged. There is a small left-sided pleural effusion. There is also prominence of the central pulmonary vasculatures. Streaky opacities are seen in the bilateral perihilar/infrahilar region. No gross abnormalities of the visualized osseous structure. IMPRESSION: Cardiomegaly. Small left-sided pleural effusion with prominence of the central pulmonary vasculatures. In the appropriate clinical setting, mild interstitial edema cannot be excluded. Alternatively, prominence of the central pulmonary vasculatures could be related to bronchovascular crowding from low lung volumes. SA/tde Workstation ID: [id number] Dictated by: ABDOULAYE LEE on MonDecember 28, 2021 4:13:50 PM EDT Transcribed by: MIKAEL HERNANDEZ on MonDecember 28, 2021 4:32:27 PM EDT Finalized by: ABDOULAYE LEE on MonJanuary 03, 2022 5:01:29 PM EDT [facility] Comment on above: Order Comment: Injur y/Trauma or Illness?:Illness/Other How long have you had these symptoms (acute/chronic)?:Acute Reason for exam?:significant heart history History of cancer?:u Surgeries, chemotherapy, or radiation?:u Type of Exam?:Initial Additional signs and symptoms?: Protime-INRon 12-22-2021 INR Coag (Bld) [Relative time] 6.8 {INR} [employer] Work Phone: [employer] Phone: Protime-INRon 12-09-2021 INR Coag (Bld) [Relative time] 3.3 {INR} [employer] Work Phone: [employer] Phone: CT ANGIOGRAM NECKon 12-07-19 CT ANGIOGRAM NECK EXAMINATION: CT ANGIOGRAM NECK HISTORY: Carotid artery stenosis. Dx: I65.21 (Atherosclerosis of right carotid artery). Injury/Trauma or Illness?:Illness/Other How long have you had these symptoms (acute/chronic)?:Unknown CONTRAST: IOPAMIDOL 76 % INTRAVENOUS SOLUTION - 75 mL, TECHNIQUE: Spiral axial examination performed through the neck with contrast and reconstructed in the axial and coronal planes and on independent workstation with maximal intensity projection and 3D volume rendering techniques. NASCET criteria used to determine the percent stenosis. Dose reduction techniques were achieved by using automated exposure control and/or adjustment of mA and/or kV according to patient size and/or use of iterative reconstruction technique. Measurement of carotid stenosis is based on NASCET criteria. COMPARISON: None. FINDINGS: Origin of the great vessels: Occlusion of the left vertebral artery. Common carotid arteries: Atherosclerotic soft plaque most prominent to the left of midline. Left carotid bifurcation: Heavy atherosclerotic calcification with a residual lumen of 2 mm consistent with a stenosis of 60%. Right carotid bifurcation: Punctate enhancement of the origin right internal carotid artery consistent with a stenosis of 80% or greater. Cervical carotid arteries: The left cervical carotid artery is normal in appearance. High-grade stenosis, 80% or greater of the right cervical carotid artery at the skull base. Vertebral arteries: Occlusion of the left vertebral artery. Reconstitution of the V2 segment left vertebral artery via muscular collaterals. Occlusion of the V3 segment and V4 segment of the left vertebral artery. Atherosclerotic calcification of the right V4 segment vertebral artery the with approximately 50% stenosis. Soft tissues of the neck: No evidence of neck mass or adenopathy. Lung apices are clear. Osseous structures are intact. IMPRESSION: 1. 80% stenosis of the origin right internal carotid artery as well as 80% stenosis of the right cervical carotid artery at the skull base. 2. 60% stenosis of the origin left internal carotid artery. 3. Occlusion of the left vertebral artery and 50% stenosis of the V4 segment right vertebral artery. [employer] Program Workstation ID: [id number] Dictated by: Rhonda COWART on MonDecember 08, 2021 10:11:16 AM EDT Transcribed by: EVI VELASQUEZ on MonDecember 08, 2021 10:15:15 AM EDT Finalized by: Rhonda COWART on MonDecember 08, 2021 11:57:09 AM EDT Normal [facility] Comment on above: Order Comment: Injur y/Trauma or Illness?:Illness/Other How long have you had these symptoms (acute/chronic)?:Unknown Reason for exam?:Right carotid artery stenosis Type of Exam?:Subsequent/Follow-up Additional signs and symptoms?: Protime-INRon 11-16-2021 INR Coag (Bld) [Relative time] 1.9 {INR} [facility] [employer] Work Phone: [facility] Phone: VL DUP CAROTID BILATERALon 0 10-26-2021 [facility] Carotid Duplex Study Patient Name KRISTIN Date of Study 10/26/2021 BARAK Beni Date of 1955 Gender Male Age 66 year(s) Race Room Number Corporate ID [id number] # Patient Acct [id number] # MR # [id number] Overlock Collar Setter Tabitha Jhaveri Anali Apple Vincent Physician Referring Referring Physician JEFF CERDA, Nurse JEAN* Practitioner Procedure Type of Study: Cerebral: Carotid, Carotid Scan Bilateral. Patient Status:Out Patient. Technical Quality:Adequate visualization. Comments:Basic Classification of ICA Stenosis: PSV - Peak Systolic Velocity Normal: No plaque or calcification identified, no elevation of PSV Mild: <50% spectral broadening without increased PSV Moderate: 50 - 69% PSV >125 - <230 cm/sec Severe: 70 - 99% PSV >230 cm/sec Critical: 80 - 99% PSV >230cm/sec and/or End Diastolic Velocities >120cm/sec. Conclusions Summary 70-99% stenosis right ICA. Signature Findings: Right Impression: Left Impression: Pulsed Doppler, color Doppler and Pulsed Doppler, color Doppler and real time sonography of the right real time sonography of the left carotid system. carotid system. Elevated velocities noted in the Elevated velocities noted in the proximal ICA, and proximal ECA with proximal ECA with spectral spectral broadening. broadening. There is heterogenous plaque noted There is heterogenous plaque noted within the distal CCA, proximal ICA, within the distal CCA, proximal ICA, proximal ECA, and CCA bulb. proximal ECA, and CCA bulb. Vertebral artery flow is antegrade . Vertebral artery flow is antegrade . Velocities are measured in cm/s ; Diameters are measured in cm Carotid Right Measurements + +--------+--- -----+-------+------+--- --------+ ---+ !Location !PSV !EDV !Angle !RI !%Stenosis !Tortuosity ! + +--------+--- -----+-------+------+--- --------+ ---+ !Prox CCA !45.49 !4.91 ! !0.89 ! ! ! + +--------+--- -----+-------+------+--- --------+ ---+ !Mid CCA !41.06 !4.88 ! !0.88 ! ! ! + +--------+--- -----+-------+------+--- --------+ ---+ !Dist CCA !37.22 !5.43 ! !0.85 ! ! ! + +--------+--- -----+-------+------+--- --------+ ---+ !Prox ICA !432.99 !157.61 ! !0.64 ! ! ! + +--------+--- -----+-------+------+--- --------+ ---+ !Mid ICA !106.73 !25.75 ! !0.76 ! ! ! + +--------+--- -----+-------+------+--- --------+ ---+ !Dist ICA !46.05 !15.28 ! !0.67 ! ! ! + +--------+--- -----+-------+------+--- --------+ ---+ !Prox ECA !167.36 !16.06 ! !0.9 ! ! ! + +--------+--- -----+-------+------+--- --------+ ---+ - There is antegrade vertebral flow noted on the right side. - Additional Measurements:ICAPSV/CCAP SV 9.52.ICAEDV/CCAEDV 32.1. Carotid Left Measurements + +--------+-- -----+-------+------+--- --------+ ---+ !Location !PSV !EDV !Angle !RI !%Stenosis !Tortuosity ! + +--------+-- -----+-------+------+--- --------+ ---+ !Prox CCA !54.03 !9.9 ! !0.82 ! ! ! + +--------+-- -----+-------+------+--- --------+ ---+ !Mid CCA !47.63 !10.61 ! !0.78 ! ! ! + +--------+-- -----+-------+------+--- --------+ ---+ !Dist CCA !44.78 !12.74 ! !0.72 ! ! ! + +--------+-- -----+-------+------+--- --------+ ---+ !Prox ICA !71.09 !23.18 ! !0.67 ! ! ! + +--------+-- -----+-------+------+--- --------+ ---+ !Mid ICA !55.55 !28.36 ! !0.49 ! ! (more content not included)... [facility] Barry Johnson Jr., MD - 10/26/2021 [facility] Carotid Duplex Study Patient Name KRISTIN Date of Study 10/26/2021 BARAK Bazan Date of 1955 Gender Male Age 66 year(s) Race Room Number Corporate ID [id number] # Patient Acct [id number] # MR # [id number] Overlock Collar Setter Tabitha Jhaveri Interpreting Anali Johnson Physician Referring Referring Physician JEFF CERDA, Nurse JEAN* Practitioner Procedure Type of Study: Cerebral: Carotid, Carotid Scan Bilateral. Patient Status:Out Patient. Technical Quality:Adequate visualization. Comments:Basic Classification of ICA Stenosis: PSV - Peak Systolic Velocity Normal: No plaque or calcification identified, no elevation of PSV Mild: <50% spectral broadening without increased PSV Moderate: 50 - 69% PSV >125 - <230 cm/sec Severe: 70 - 99% PSV >230 cm/sec Critical: 80 - 99% PSV >230cm/sec and/or End Diastolic Velocities >120cm/sec. Conclusions Summary 70-99% stenosis right ICA. Signature Findings: Right Impression: Left Impression: Pulsed Doppler, color Doppler and Pulsed Doppler, color Doppler and real time sonography of the right real time sonography of the left carotid system. carotid system. Elevated velocities noted in the Elevated velocities noted in the proximal ICA, and proximal ECA with proximal ECA with spectral spectral broadening. broadening. There is heterogenous plaque noted There is heterogenous plaque noted within the distal CCA, proximal ICA, within the distal CCA, proximal ICA, proximal ECA, and CCA bulb. proximal ECA, and CCA bulb. Vertebral artery flow is antegrade . Vertebral artery flow is antegrade . Velocities are measured in cm/s ; Diameters are measured in cm Carotid Right Measurements + +--------+--- -----+-------+------+--- --------+ --- + !Location !PSV !EDV !Angle !RI !%Stenosis !Tortuosity ! + +--------+--- -----+-------+------+--- --------+ --- + !Prox CCA !45.49 !4.91 ! !0.89 ! ! ! + +--------+--- -----+-------+------+--- --------+ --- + !Mid CCA !41.06 !4.88 ! !0.88 ! ! ! + +--------+--- -----+-------+------+--- --------+ --- + !Dist CCA !37.22 !5.43 ! !0.85 ! ! ! + +--------+--- -----+-------+------+--- --------+ --- + !Prox ICA !432.99 !157.61 ! !0.64 ! ! ! + +--------+--- -----+-------+------+--- --------+ --- + !Mid ICA !106.73 !25.75 ! !0.76 ! ! ! + +--------+--- -----+-------+------+--- --------+ --- + !Dist ICA !46.05 !15.28 ! !0.67 ! ! ! + +--------+--- -----+-------+------+--- --------+ --- + !Prox ECA !167.36 !16.06 ! !0.9 ! ! ! + +--------+--- -----+-------+------+--- --------+ --- + - There is antegrade vertebral flow noted on the right side. - Additional Measurements:ICAPSV/CCAP SV 9.52.ICAEDV/CCAEDV 32.1. Carotid Left Measurements + +--------+-- -----+-------+------+--- --------+ --- + !Location !PSV !EDV !Angle !RI !%Stenosis !Tortuosity ! + +--------+-- -----+-------+------+--- --------+ --- + !Prox CCA !54.03 !9.9 ! !0.82 ! ! ! + +--------+-- -----+-------+------+--- --------+ --- + !Mid CCA !47.63 !10.61 ! !0.78 ! ! ! + +--------+-- -----+-------+------+--- --------+ --- + !Dist CCA !44.78 !12.74 ! !0.72 ! ! ! + +--------+-- -----+-------+------+--- --------+ --- + !Prox ICA !71.09 !23.18 ! !0.67 ! ! ! + +--------+-- -----+-------+------+--- --------+ --- + !Mid ICA !55.55 !28.36 ! !0.49 ! ! ! + +--------+-- -----+-------+------+--- --------+ --- + !Dist ICA !65.91 !29.65 ! !0.55 ! ! ! + +--------+-- -----+-------+------+--- --------+ --- + !Prox ECA !214.25 !16.44 ! !0.92 ! ! ! + +--------+-- -----+-------+------+--- --------+ --- + !Vertebral !35.52 !7.76 ! !0.78 ! ! ! + +--------+-- -----+-------+------+--- --------+ --- + - There is antegrade vertebral flow noted on the left side. - Additional Measurements:ICAPSV/CCAP SV 1.32.ICAEDV/CCAEDV 2.99. [employer] Phone: Radiology Study observation (narrative) [employer] Phone: VL DUP CAROTID BILATERALOrde red By: Barry Johnson on 10-26-2021 [employer] Phone: Protime-INRon 08-10-2021 INR Coag (Bld) [Relative time] 3.2 {INR} [employer] Phone: [employer] Phone: Protime-INROrdered By: Crispin Platt on 06-07-2021 INR Coag (Bld) [Relative time] 3.1 {INR} [employer] Phone: [employer] Phone: Protime-INROrdered By: Crispin patel Provider on 04-23-2021 INR Coag (Bld) [Relative time] 2.6 {INR} [employer] Phone: [employer] Phone: Protime-INROrdered By: Crispin Platt on 03-01-2021 INR Coag (Bld) [Relative time] 2.8 {INR} [employer] Phone: [employer] Phone: CBC Auto DifferentialOrdered By: Rafa Nicole on 02-25-2021 Absolute Eos # 0.20 [employer] Phone: Absolute Immature Granulocyte NOT REPORTED [facility] Work Phone: Absolute Lymph # 1.60 [employer] [facility] Work Phone: Absolute [place] # 0.80 [facility] Work Phone: Basophils (Bld) [#/Vol] 0.00 10*3/uL [employer] Work Phone: Basophils/100 WBC (Bld) 1 % 0 - 2 % [facility] Work Phone: Differential Type YES IPS [facility] Work Phone: Eosinophils/100 WBC (Bld) 2 % 0 - 5 % [employer] Phone: Hematocrit (Bld) [Volume fraction] 45.5 % 41 - 53 % [employer] Phone: Hemoglobin.gastrointe stinal spec 1 Ql (Stl) 15.2 g/dL 13.5 - 17.5 g/dL [employer] Work Phone: Immature Granulocytes NOT REPORTED 0 % [facility] Work Phone: Lymphocytes/100 WBC (Bld) 18 % 13 - 44 % [employer] Phone: MCH (RBC) [Entitic mass] 30.3 pg 26 - 34 pg [employer] Work Phone: MCHC (RBC) [Mass/Vol] 33.4 g/dL 31 - 3 7 g/dL [employer] Phone: MCV (RBC) [Entitic vol] 90.5 fL 80 - 100 fL [employer] Work Phone: Monocytes/100 WBC (Bld) 9 % 5 - 9 % [employer] Work Phone: NRBC Automated NOT REPORTED per 100 WBC IPS [facility] Work Phone: Platelet distribution width (Bld) [Ratio] 15.1 % 12.1 - 15.2 % [employer] Work Phone: Platelet Estimate NOT REPORTED [employer] Work Phone: Platelet mean volume (Bld) [Entitic vol] NOT REPORTED 6.0 - 12.0 fL [employer] Work Phone: Platelets (Bld) [#/Vol] 210 10*3/uL [employer] Work Phone: RBC (Bld) [#/Vol] 5.02 10*6/uL 4.5 - 5.9 m/uL [employer] Work Phone: RBC (Bld) [#/Vol] NOT REPORTED [employer] Work Phone: Segmented neutrophils/100 WBC (Bld) 70 % 39 - 75 % [employer] Work Phone: Segs Absolute 6.50 [employer] Work Phone: WBC (Bld) [#/Vol] 9.2 10*3/uL [employer] Work Phone: WBC (Bld) [#/Vol] NOT REPORTED [employer] Phone: [employer] Work Phone: Comprehensive Metabolic Pane lOrdered By: Rafa Nicole on 02-25-2021 Albumin [Mass/Vol] 4 g/dL 3.5 - 5.2 g/dL [employer] Phone: Albumin/Globulin Ratio NOT REPORTED [employer] Work Phone: ALP (Bld) [Catalytic activity/Vol] 60 U/L 40 - 129 U/L [employer] Work Phone: ALT [Catalytic activity/Vol] 19 U/L 5 - 41 U/L [employer] Work Phone: Anion gap [Moles/Vol] 9 mmol/L 9 - 17 mmol/L [employer] Work Phone: AST [Catalytic activity/Vol] 18 U/L <40 [employer] Phone: Bilirubin [Mass/Vol] 1.55 mg/dL High 0.30 - 1.20 mg/dL [employer] Phone: Calcium [Mass/Vol] 9.6 mg/dL 8.6 - 10. 4 mg/dL [employer] Phone: Chloride [Moles/Vol] 102 mmol/L 98 - 10 7 mmol/L [employer] Phone: CO2 [Moles/Vol] 28 mmol/L 20 - 31 mmol/L [employer] Phone: Creatinine [Mass/Vol] 1.61 mg/dL High 0.70 - 1.20 mg/dL [employer] Phone: Free PSA/Total PSA [Mass fraction] 7.3 g/dL 6.4 - 8.3 g/dL [employer] Phone: GFR 53 mL/min Low >60 [employer] Phone: GFR Non- 44 mL/min Low >60 [employer] Phone: GFR/1.73 sq M.predicted MDRD (S/P/Bld) [Vol rate/Area] [employer] Phone: Comment on above: Average GFR for 60-6 9 years old: 85 mL/min/1.73sq m Chronic Kidney Disease: <60 mL/min/1.73sq m Kidney failure: <15 mL/min/1.73sq m eGFR calculated using average adult body mass. Additional eGFR calculator available at: http://www.ZarthCode.[employer]/multiple_crcl_2012.htm GFR/1.73 sq M.predicted MDRD (S/P/Bld) [Vol rate/Area] NOT REPORTED [employer] Phone: Glucose [Mass/Vol] 88 mg/dL 70 - 99 mg/dL [employer] Phone: Interpretation and review of laboratory results Abnormal [employer] Phone: Potassium [Moles/Vol] 4.5 mmol/L 3.7 - 5.3 mmol/L [employer] Phone: Sodium [Moles/Vol] 139 mmol/L 135 - 144 mmol/L [employer] Phone: Urea nitrogen (BldV) [Mass/Vol] 26 mg/dL High 8 - 23 mg/dL [employer] Phone: Urea nitrogen/Creatinine (Bld) [Mass ratio] 16 [employer] Phone: Hemoglobin [id number] By: Dimas Cerda on 02-25-2021 Glucose [Mass/Vol] 143 mg/dL [employer] Phone: Comment on above: The ADA and AACC rec ommend providing the estimated average glucose result to permit better patient understanding of their HBA1c result. HbA1c (Bld) [Mass fraction] 6.6 % High 4.0 - 6.0 % [employer] Phone: Interpretation and review of laboratory results Abnormal [employer] Phone: [employer] Phone: Lipid PanelOrdered By: Rafa Nicole on 02-25-2021 Cholesterol [Mass/Vol] 137 mg/dL <200 [employer] Phone: Comment on above: Cholesterol Guidelines: <200 Desirable 200-240 Borderline >240 Undesirable Cholesterol in HDL [Mass/Vol] 32 mg/dL Low >40 [employer] Phone: Comment on above: HDL Guidelines: <40 Undesirable 40-59 Borderline >59 Desirable Cholesterol in LDL [Mass/Vol] 72 mg/dL 0 - 130 mg/dL [employer] Phone: Comment on above: LDL Guidelines: <100 Desirable 100-129 Near to/above Desirable 130-159 Borderline >159 Undesirable Direct (measured) LDL and calculated LDL are not interchangeable tests. Cholesterol in VLDL [Mass/Vol] NOT REPORTED High 1 - 30 mg/dL [employer] Phone: Cholesterol.total/Cho lesterol in HDL [Mass ratio] 4.3 {ratio} <5 [employer] Phone: Interpretation and review of laboratory results Abnormal [employer] Phone: Triglyceride [Mass/Vol] 164 mg/dL High <150 [employer] Phone: Comment on above: Triglyceride Guidelines: <150 Desirable 150-199 Borderline 200-499 High >499 Very high Based on AHA Guidelines for fasting triglyceride, May 2012. [employer] Phone: MagnesiumOrdered By: Rafa villafana on 02-25-2021 Magnesium [Mass/Vol] 1.9 mg/dL 1.6 - 2 .6 mg/dL [employer] Phone: No Panel InformationOrdered By: Rafa Nicole on 02-25-2021 [employer] Phone: Patient Fasting?Ordered By: Rafa Nicole on 02-25-2021 Patient Fasting? yes [facility] Work Phone: [employer] Phone: TSH with ReflexOrdered By: Armin Nicole on 02-25-2021 TSH Qn 2.72 m[IU]/L [employer] Phone: Vitamin D 25 HydroxyOrdered By: Rafa Nicole on 02-25-2021 Vit D, 25-Hydroxy 56.4 ng/mL 30.0 - 100.0 ng/mL [employer] Phone: Comment on above: Reference Range: Vitamin D status Range Deficiency <20 ng/mL Mild Deficiency 20-30 ng/mL Sufficiency 30-100 ng/mL Toxicity >100 ng/mL [employer] Phone: Protime-INROrdered By: Crispin patel Provider on 12-29-2020 INR Coag (Bld) [Relative time] 3.8 {INR} [employer] Phone: [employer] Phone: Creatinine W/GFR Point of Ca reOrdered By: Ayde Matthews on 11-23-2020 Creatinine [Mass/Vol] 1.61 mg/dL High 0.51 - 1.19 mg/dL [employer] Phone: GFR Non- 43 mL/min Low >60 [employer] Phone: GFR/1.73 sq M.predicted MDRD (S/P/Bld) [Vol rate/Area] 53 mL/min/{1.73_m2} Low >60 [employer] Phone: GFR/1.73 sq M.predicted MDRD (S/P/Bld) [Vol rate/Area] [employer] Phone: Comment on above: Average GFR for 60-6 9 years old: 85 mL/min/1.73sq m Chronic Kidney Disease: <60 mL/min/1.73sq m Kidney failure: <15 mL/min/1.73sq m eGFR calculated using average adult body mass. Additional eGFR calculator available at: http://www.LineHop/multiple_crcl_2012.htm Interpretation and review of laboratory results Abnormal [employer] Phone: POC Glucose FingerstickOrder ed By: Ayde Matthews on 11-23-2020 Glucose [Mass/Vol] 116 mg/dL High 75 - 110 mg/dL [employer] Phone: Interpretation and review of laboratory results Abnormal [employer] Phone: POCT GlucoseOrdered By: Rafa Matthews on 11-23-2020 Glucose [Mass/Vol] 94 mg/dL 74 - 100 mg/dL [employer] Phone: POCT INROrdered By: Ayde Matthews on 11-23-2020 POC INR 1.1 [employer] Phone: Comment on above: Therapeutic Range: Moderate Anticoagulant Intensity: INR = 2.0-3.0 High Anticoagulant Intensity: INR = 2.5-3.5 PT Coag (PPP) [Time] 13.3 s [employer] Phone: POTASSIUM (POC)Ordered By: Armin Matthews on 11-23-2020 Potassium [Moles/Vol] 4.5 mmol/L 3.5 - 4.5 mmol/L [employer] Phone: Surgical Pathologyon 021 Surgical Pathology (NOTE) -- Diagnosis -- GALLBLADDER, CHOLECYSTECTOMY:- CHRONIC CHOLECYSTITIS.- CHOLELITHIASIS. Allan Hurst, Electronically Signed Out /11/24/2020 Clinical Information Pre-op Diagnosis: GALLSTONES Operative Findings: GALLBLADDER AND CONTENTS Operation Performed: LAPAROSCOPIC CHOLECYSTECTOMY Source of Specimen 1: GALLBLADDER AND CONTENTS Gross Description BARAK ROMANAUER, GALLBLADDER AND CONTENTS 9.2 x 4.3 x 3.5 cm intact gallbladder with a 0.5 cm long x 1.0 cm in diameter cystic duct. The serosa is purple-soto, and the liver bed is coarse brown-green. The wall is 0.1 cm in thickness, and the lumen contains approximately 20 cc of tenacious green bile with brown-black calculi, 3.0 x 1.5 x 1.0 cm in aggregate. The mucosa is brown-best and velvety. Cystic duct margin and sections of gallbladder mucosa 1cs. tm Microscopic Description Microscopic examination performed. SURGICAL PATHOLOGY CONSULTATION Patient Name: BARAK FOSTER [facility] Rec: [id number] Path Number: [id number] [facility] ANATOMIC PATHOLOGY [address] [place] [id number] [facility] Comment on above: Performed By: #### P PPVS #### [employer] [address] [place] [phone] [employer]der: Oh Jean MD Protime-INRon 11-17-2020 INR Coag (Bld) [Relative time] 2.9 {INR} [employer] Phone: EKG 12 Leadon 11-10-2020 Atrial Rate 69 BPM [employer] Work Phone: P [place] 51 degrees [employer] Work Phone: P-R Interval 200 ms [employer] Phone: Q-T Interval 448 ms [employer] Phone: QRS Duration 134 ms [employer] Work Phone: QTc Calculation (Bazett) 480 ms [employer] Phone: R [place] -41 degrees [employer] Phone: T [place] 113 degrees [employer] Phone: Ventricular Rate 69 BPM [facility] Work Phone: Andrés, Mhpn Incoming E kg Results From [employer] - 11/10/2020 2:08 PM EDT Sinus rhythm with frequent , and consecutive Premature ventricular complexes Left axis deviation Non-specific intra-ventricular conduction block T wave abnormality, consider lateral ischemia Abnormal ECG No previous ECGs available [employer] Phone: Sinus rhythm with frequent , and consecutive Premature ventricular complexes Left axis deviation Non-specific intra-ventricular conduction block T wave abnormality, consider lateral ischemia Abnormal ECG No previous ECGs available [employer] Phone: Basic Metabolic Panelon Anion gap [Moles/Vol] 11 mmol/L 9 - 17 mmol/L [employer] Phone: Calcium [Mass/Vol] 9.9 mg/dL 8.6 - 10. 4 mg/dL [employer] Phone: Chloride [Moles/Vol] 102 mmol/L 98 - 10 7 mmol/L [employer] Phone: CO2 [Moles/Vol] 24 mmol/L 20 - 31 mmol/L [employer] Phone: Creatinine [Mass/Vol] 1.71 mg/dL High 0.70 - 1.20 mg/dL [employer] Phone: GFR 49 mL/min Low >60 [employer] Phone: GFR Non- 41 mL/min Low >60 [employer] Phone: GFR/1.73 sq M.predicted MDRD (S/P/Bld) [Vol rate/Area] NOT REPORTED [employer] Phone: GFR/1.73 sq M.predicted MDRD (S/P/Bld) [Vol rate/Area] [employer] Phone: Comment on above: Average GFR for 60-6 9 years old: 85 mL/min/1.73sq m Chronic Kidney Disease: <60 mL/min/1.73sq m Kidney failure: <15 mL/min/1.73sq m eGFR calculated using average adult body mass. Additional eGFR calculator available at: http://www.LineHop/multiple_crcl_2012.htm Glucose [Mass/Vol] 133 mg/dL High 70 - 99 mg/dL [employer] Phone: Interpretation and review of laboratory results Abnormal [employer] Phone: Potassium [Moles/Vol] 4.8 mmol/L 3.7 - 5.3 mmol/L [employer] Phone: Sodium [Moles/Vol] 137 mmol/L 135 - 144 mmol/L [employer] Phone: Urea nitrogen (BldV) [Mass/Vol] 37 mg/dL High 8 - 23 mg/dL [employer] Phone: Urea nitrogen/Creatinine (Bld) [Mass ratio] NOT REPORTED [employer] Phone: Basic Metabolic Profon 11-09 (cont.) Normal [facility] Comment on above: Result Comment: Aver age GFR for 60-69 years old: 85 mL/min/1.73sq m Chronic Kidney Disease: <60 mL/min/1.73sq m Kidney failure: <15 mL/min/1.73sq m eGFR calculated using average adult body mass. Additional eGFR calculator available at: http://www.ZarthCode.[employer]/multiple_crcl_2011.htm Performed By: #### C KWASI PT, BMP #### [employer] [address] [place] [address] [employer]: Oh Jean MD Anion gap [Moles/Vol] 11 mmol/L Normal 9-17 [facility] Comment on above: Performed By: #### Elpidio VILLALPANDO PT, BMP #### [facility] [address] [place] [address] [employer]der: Oh Jean MD Calcium [Mass/Vol] 9.9 mg/dL Normal 8.6-10.4 [facility] Comment on above: Performed By: #### C KWASI PT, BMP #### [facility] [address] [place] [address] [employer]der: Oh Jean MD Chloride [Moles/Vol] 102 mmol/L Normal 98-107 [facility] Comment on above: Performed By: #### Elpidio VILLALPANDO PT, BMP #### [employer] [address] [place] [address] [employer]der: Oh Jean MD CO2 [Moles/Vol] 24 mmol/L Normal 20-31 [facility] Comment on above: Performed By: #### C KWASI PT, BMP #### [facility] [address] [place] [phone] [employer]der: Oh Jean MD Creatinine [Mass/Vol] 1.71 mg/dL High 0.70-1.20 [facility] Comment on above: Performed By: #### C BC, PT, BMP #### [facility] [address] [place] [phone] [employer]: Oh Jean MD GFR, Amer 49 mL/min Low >60 [facility] Comment on above: Performed By: #### C BC, PT, BMP #### [facility] [address] [place] [address] [employer]der: Oh Jean MD GFR,non Amer 41 mL/min Low >60 [facility] Comment on above: Performed By: #### C BC, PT, BMP #### [facility] [address] [place] [address] [employer]der: Oh Jean MD Glucose [Mass/Vol] 133 mg/dL High 70-99 [facility] Comment on above: Performed By: #### C BC, PT, BMP #### [facility] [address] [place] [address] [employer]der: Oh Jean MD Potassium [Moles/Vol] 4.8 mmol/L Normal 3.7-5.3 [facility] Comment on above: Performed By: #### C BC, PT, BMP #### [facility] [address] [place] [phone] [employer]der: Oh Jean MD Sodium [Moles/Vol] 137 mmol/L Normal 135-144 [facility] Comment on above: Performed By: #### C BC, PT, BMP #### [facility] [address] [place] [address] [employer]der: Oh Jean MD Urea nitrogen [Mass/Vol] 37 mg/dL High 8-23 [facility] Comment on above: Performed By: #### C BC, PT, BMP #### [facility] [address] [place] [phone] [employer] Welder: Oh Jean MD BUN/CRE Ratio NOT REPORTED Normal 9-20 [facility] Comment on above: Performed By: #### C KWASI, PT, BMP #### [facility] [employer] [address] [place] [phone] [employer] Welder: Oh Jean MD Staging: NOT REPORTED Normal [facility] Comment on above: Performed By: #### C KWASI, PT, BMP #### [facility] [address] [place] [phone] [employer]der: Oh Jean MD CBCon 11-09-2020 Erythrocyte distribution width (RBC) [Ratio] 13.8 % Normal 11.8-14.4 [facility] Comment on above: Performed By: #### C KWASI PT, BMP #### [facility] [employer] [address] [place] [address] [employer]der: Oh Jean MD Hematocrit (Bld) [Volume fraction] 44.6 % Normal 40.7-50.3 [facility] Comment on above: Performed By: #### C KWASI, PT, BMP #### [facility] [employer] [address] [place] [phone] [employer] Welder: Oh Jean MD Hemoglobin (Bld) [Mass/Vol] 14.7 g/dL Normal 13.0-17.0 [facility] Comment on above: Performed By: #### C KWASI, PT, BMP #### [facility] [address] [place] [address] [employer] Welder: Oh Jean MD MCH (RBC) [Entitic mass] 30.4 pg Normal 25.2-33.5 [facility] Comment on above: Performed By: #### C BC, PT, BMP #### [facility] [address] [place] [phone] [employer]der: Oh Jean MD MCHC (RBC) [Mass/Vol] 33.0 g/dL Normal 28.4-34.8 [facility] Comment on above: Performed By: #### C BC, PT, BMP #### [address] [address] [employer]der: Oh Jean MD MCV (RBC) [Entitic vol] 92.3 fL Normal 82.6-102.9 [facility] Comment on above: Performed By: #### C BC, PT, BMP #### [address] [address] [employer]der: Oh Jean MD NRBC Automated 0.0 per 100 WBC Normal 0.0 [facility] Comment on above: Performed By: #### C BC, PT, BMP #### [address] [address] [employer]der: Oh Jean MD Platelet mean volume (Bld) [Entitic vol] 10.1 fL Normal 8.1-13.5 [facility] Comment on above: Performed By: #### C BC, PT, BMP #### [address] [address] [employer]: Oh Jean MD Platelets (Bld) [#/Vol] 252 10*3/uL Normal 138-453 [facility] Comment on above: Performed By: #### C BC, PT, BMP #### [address] [address] [employer]der: Oh Jean MD RBC (Bld) [#/Vol] 4.83 10*6/uL Normal 4.21-5.77 [facility] Comment on above: Performed By: #### C BC, PT, BMP #### [address] [address] [employer]der: Oh Jean MD WBC (Bld) [#/Vol] 9.0 10*3/uL Normal 3.5-11.3 [facility] Comment on above: Performed By: #### C BC, PT, BMP #### [facility] [address] [place] [address] [employer] Welder: Oh Jean MD Hematocrit (Bld) [Volume fraction] 44.6 % 40.7 - 50.3 % [employer] Phone: Hemoglobin.gastrointe stinal spec 1 Ql (Stl) 14.7 g/dL 13.0 - 17.0 g/dL [employer] Phone: MCH (RBC) [Entitic mass] 30.4 pg 25.2 - 33.5 pg [employer] Phone: MCHC (RBC) [Mass/Vol] 33.0 g/dL 28.4 - 34.8 g/dL [employer] Phone: MCV (RBC) [Entitic vol] 92.3 fL 82.6 - 102.9 fL [employer] Phone: Platelet distribution width (Bld) [Ratio] 13.8 % 11.8 - 14.4 % [employer] Phone: Platelet mean volume (Bld) [Entitic vol] 10.1 fL 8.1 - 13.5 fL [employer] Phone: Platelets (Bld) [#/Vol] 252 10*3/uL [employer] Phone: RBC (Bld) [#/Vol] 4.83 10*6/uL 4.21 - 5.7 7 m/uL [employer] Phone: WBC (Bld) [#/Vol] 9.0 10*3/uL [employer] Phone: WBC (Bld) [#/Vol] 0.0 10*3/uL 0.0 per 10 0 WBC [employer] Phone: PTon 11-09-2020 INR Coag (PPP) [Relative time] 2.6 {INR} Normal [facility] Comment on above: Result Comment: Therapeutic Range: Moderate Anticoagulant Intensity: INR = 2.0-3.0 High Anticoagulant Intensity: INR = 2.5-3.5 Performed By: #### C BC, PT, BMP #### [facility] [address] [place], [place] [phone] [employer] Welder: Oh Jean MD PT Coag (PPP) [Time] 25.5 s High 9.1-12.3 [facility] Comment on above: Performed By: #### C BC, PT, BMP #### [employer] [address] [place] [address] [phone] [employer] Welder: Oh Jean MD Protime-INRon 11-09-2020 INR Coag (Bld) [Relative time] 2.6 {INR} [facility] [employer] Phone: Comment on above: Therapeutic Range: Moderate Anticoagulant Intensity: INR = 2.0-3.0 High Anticoagulant Intensity: INR = 2.5-3.5 Interpretation and review of laboratory results Abnormal [employer] Phone: PT Coag (PPP) [Time] 25.5 s High [facility] [employer] Phone: Consent for COVID Vaccineon 11-07-2020 SARS-CoV-2 (COVID-19) RNA NEFTALI+probe Ql (Unsp spec) [id number]: 127 Normal [facility] US GALLBLADDER RUQon 021 1. Exam was limited due to overlying bowel gas. 2. The pancreas was obscured due to overlying bowel gas 3. Portions of the liver were obscured due to overlying bowel gas. Visualized portions of liver demonstrate increased echogenicity suggesting fatty infiltration of the liver versus diffuse hepatocellular disease. 4. No definite gallstones. There is a questionable small amount of sludge within the gallbladder. [facility] Phone: EXAM: US GALLBLADDER RUQ HISTORY: Reason for exam:->Abdominal Pain . COMPARISON: None. TECHNIQUE: Grayscale and color imaging was performed FINDINGS: Scanning of the liver demonstrates a liver to be normal in size. Portions of the liver were obscured due to overlying bowel gas. Visualized portions of the liver demonstrates mild increased echogenicity consistent with fatty infiltration of the liver versus diffuse hepatocellular disease. Common bile duct was normal measuring 4 mm. Right kidney measures 10.4 x 5.4 x 6.8 cm. No solid renal cortical masses or hydronephrosis is noted. Scanning of the gallbladder demonstrates no gallstones. There is a questionable small amount of sludge within the gallbladder. No gallbladder wall thickening was noted. Patient had no pain upon scanning over the gallbladder. The pancreas was obscured due to overlying bowel gas. No fluid was noted in the right upper quadrant. [employer] Phone: Andrés, pn Incoming Radiant Results From [employer] - 11/02/2020 9:51 AM EDT EXAM: US GALLBLADDER RUQ HISTORY: Reason for exam:->Abdominal Pain . COMPARISON: None. TECHNIQUE: Grayscale and color imaging was performed FINDINGS: Scanning of the liver demonstrates a liver to be normal in size. Portions of the liver were obscured due to overlying bowel gas. Visualized portions of the liver demonstrates mild increased echogenicity consistent with fatty infiltration of the liver versus diffuse hepatocellular disease. Common bile duct was normal measuring 4 mm. Right kidney measures 10.4 x 5.4 x 6.8 cm. No solid renal cortical masses or hydronephrosis is noted. Scanning of the gallbladder demonstrates no gallstones. There is a questionable small amount of sludge within the gallbladder. No gallbladder wall thickening was noted. Patient had no pain upon scanning over the gallbladder. The pancreas was obscured due to overlying bowel gas. No fluid was noted in the right upper quadrant. IMPRESSION: 1. Exam was limited due to overlying bowel gas. 2. The pancreas was obscured due to overlying bowel gas 3. Portions of the liver were obscured due to overlying bowel gas. Visualized portions of liver demonstrate increased echogenicity suggesting fatty infiltration of the liver versus diffuse hepatocellular disease. 4. No definite gallstones. There is a questionable small amount of sludge within the gallbladder. [employer] Phone: Consent for COVID Vaccineon 10-17-2020 SARS-CoV-2 (COVID-19) RNA NEFTALI+probe Ql (Unsp spec) [id number] :127 Normal [facility] Consent for Treatmenton 10-05 Consent for Treatment [id number] :127 [facility] Coding Summary.on 10-14-2020 Coding Summary. CODING DATE: 021 FINAL [facility] DSC STATUS: PAYOR: [facility] [place] [facility] DESCRIPTION 1492 [employer] - Level 1B ($11-$20) ADMIT DX: REASON FOR VISIT DX: Z23 Encounter for immunization FINAL DX: PRINCIPAL: Z23 Encounter for immunization SECONDARY: PYMT PROC APC STAT DESCRIPTION DOCTOR NAME DATE NOTE: The code number assigned matches the documented diagnosis and / or procedure in the patient's chart. However, the narrative phrase printed from the coding software may appear abbreviated, or result in slightly different terminology. Coded By: Luciana Oliva Date Saved: 10/14/2020 02:04 pm [facility] CBC Auto Differentialon 08-07 Basophils (Bld) [#/Vol] 0.00 10*3/uL [place] Basophils/100 WBC (Bld) 1 % 0 - 2 % [place] Differential Type YES [place] Eosinophils (Bld) [#/Vol] 0.30 10*3/uL [place] Eosinophils/100 WBC (Bld) 3 % 0 - 5 % [place] Erythrocyte distribution width (RBC) [Ratio] 14.9 % 12.1 - 15.2 % [place] Hematocrit (Bld) [Volume fraction] 44.9 % 41 - 53 % [place] Hemoglobin (Bld) [Mass/Vol] 15.0 g/dL 13.5 - 17.5 g/dL [place] Interpretation and review of laboratory results Abnormal [place] Lymphocytes (Bld) [#/Vol] 1.70 10*3/uL [place] Lymphocytes/100 WBC (Bld) 19 % 13 - 44 % [place] MCH (RBC) [Entitic mass] 30.4 pg 26 - 34 pg [place] MCHC (RBC) [Mass/Vol] 33.4 g/dL 31 - 3 7 g/dL [place] MCV (RBC) [Entitic vol] 91.0 fL 80 - 100 fL [place] Monocytes (Bld) [#/Vol] 1.00 10*3/uL [place] Monocytes/100 WBC (Bld) 11 % High 5 - 9 % [place] Platelet mean volume (Bld) [Entitic vol] NOT REPORTED 6 - 12 fL [place] Platelets (Bld) [#/Vol] 237 10*3/uL [place] Platelets (Bld) [#/Vol] NOT REPORTED [place] RBC (Bld) [#/Vol] 4.94 10*6/uL 4.5 - 5.9 m/uL [place] RBC morphology finding Nom (Bld) NOT REPORTED [place] Segmented neutrophils/100 WBC (Bld) 66 % 39 - 75 % [place] Segs Absolute 6.00 [employer] WBC (Bld) [#/Vol] 8.9 10*3/uL [place] WBC (Bld) [#/Vol] NOT REPORTED per 100 WBC [place] WBC Morphology NOT REPORTED [place] Comprehensive Metabolic Pane yonis 08-25-2020 Albumin [Mass/Vol] 4.2 g/dL 3.5 - 5.2 g/dL [place] Albumin/Globulin [Mass ratio] NOT REPORTED [place] ALP [Catalytic activity/Vol] 64 U/L 40 - 129 U/L [place] ALT [Catalytic activity/Vol] 16 U/L 5 - 41 U/L [place] Anion gap [Moles/Vol] 10 mmol/L 9 - 17 mmol/L [place] AST [Catalytic activity/Vol] 21 U/L <40 [place] Bilirubin Ql (U) 0.92 mg/dL 0.3 - 1.2 mg/dL [place] Bun/Cre Ratio 22 High [employer] Calcium [Mass/Vol] 10.7 mg/dL High 8.6 - 10. 4 mg/dL [place] Chloride [Moles/Vol] 102 mmol/L 98 - 10 7 mmol/L [place] CO2 [Moles/Vol] 27 mmol/L 20 - 31 mmol/L [place] Creatinine [Mass/Vol] 1.78 mg/dL High 0.7 - 1.2 mg/dL [place] GFR 47 mL/min Low >60 [place] GFR Non- 39 mL/min Low >60 [place] GFR/1.73 sq M predicted among non-blacks MDRD (S/P/Bld) [Vol rate/Area] [place] Comment on above: Average GFR for 60-6 9 years old: 85 mL/min/1.73sq m Chronic Kidney Disease: <60 mL/min/1.73sq m Kidney failure: <15 mL/min/1.73sq m eGFR calculated using average adult body mass. Additional eGFR calculator available at: http://www.LineHop/multiple_crcl_2012.htm GFR/1.73 sq M predicted among non-blacks MDRD (S/P/Bld) [Vol rate/Area] NOT REPORTED [place] Glucose [Mass/Vol] 89 mg/dL 70 - 99 mg/dL [place] Interpretation and review of laboratory results Abnormal [place] Potassium [Moles/Vol] 5.2 mmol/L 3.7 - 5.3 mmol/L [place] Protein [Mass/Vol] 7.5 g/dL 6.4 - 8.3 g/dL [place] Sodium [Moles/Vol] 139 mmol/L 135 - 144 mmol/L [place] Urea nitrogen [Mass/Vol] 39 mg/dL High 8 - 23 mg/dL [place] Lipid Panelon 08-25-2020 Cholesterol [Mass/Vol] 126 mg/dL <200 [place] Comment on above: Cholesterol Guidelines: <200 Desirable 200-240 Borderline >240 Undesirable Cholesterol in HDL [Mass/Vol] 34 mg/dL Low >40 [place] Comment on above: HDL Guidelines: <40 Undesirable 40-59 Borderline >59 Desirable Cholesterol in LDL [Mass/Vol] 59 mg/dL 0 - 130 mg/dL [place] Comment on above: LDL Guidelines: <100 Desirable 100-129 Near to/above Desirable 130-159 Borderline >159 Undesirable Direct (measured) LDL and calculated LDL are not interchangeable tests. Cholesterol in VLDL [Mass/Vol] NOT REPORTED High 1 - 30 mg/dL [place] Cholesterol.total/Cho lesterol in HDL [Mass ratio] 3.7 {ratio} <5 [place] Interpretation and review of laboratory results Abnormal [place] Triglyceride [Mass/Vol] 166 mg/dL High <150 [place] Comment on above: Triglyceride Guidelines: <150 Desirable 150-199 Borderline 200-499 High >499 Very high Based on AHA Guidelines for fasting triglyceride, May 2012. Magnesiumon 08-25-2020 Magnesium [Mass/Vol] 2.2 mg/dL 1.6 - 2 .6 mg/dL [place] Otheron 08-25-2020 Immature granulocytes (Bld) [#/Vol] NOT REPORTED [place] Patient Fasting?on 1 Patient Fasting? yes [place] TSH with Reflexon 08-25-2020 TSH Qn 2.54 m[IU]/L [place] Vitamin D 25 Hydroxyon 08-25 Vit D, 25-Hydroxy 52.3 ng/mL 30 - 100 ng/mL [place] Comment on above: Reference Range: Vitamin D status Range Deficiency <20 ng/mL Mild Deficiency 20-30 ng/mL Sufficiency 30-100 ng/mL Toxicity >100 ng/mL XR CHEST (2 VW)on 01-19-2021 Pacemaker defibrilla tor with no acute change compared to 02/26/2019, 10/19/2017. [place] EXAM: XR CHEST (2 VW ) HISTORY: Reason for exam:->htn 64-year-old male COMPARISON: 02/26/2019 chest, 10/19/2017. TECHNIQUE: 2 views chest FINDINGS: Single lead pacemaker defibrillator with the tip in the right ventricle unchanged. Heart size upper normal, stable. Lungs clear. [place] Andrés, Mhpn Incoming Radiant Results From [employer] - 08/25/2020 10:17 AM EST EXAM: XR CHEST (2 VW) HISTORY: Reason for exam:->htn 64-year-old male COMPARISON: 02/26/2019 chest, 10/19/2017. TECHNIQUE: 2 views chest FINDINGS: Single lead pacemaker defibrillator with the tip in the right ventricle unchanged. Heart size upper normal, stable. Lungs clear. IMPRESSION: Pacemaker defibrillator with no acute change compared to 02/26/2019, 10/19/2017. [place] Comprehensive Metabolic Pane yonis 08-14-2020 Albumin [Mass/Vol] 4.7 g/dL 3.5 - 5.2 g/dL [place] Albumin/Globulin [Mass ratio] NOT REPORTED [place] ALP [Catalytic activity/Vol] 61 U/L 40 - 129 U/L [place] ALT [Catalytic activity/Vol] 20 U/L 5 - 41 U/L [place] Anion gap [Moles/Vol] 11 mmol/L 9 - 17 mmol/L [place] AST [Catalytic activity/Vol] 20 U/L <40 [place] Bilirubin Ql (U) 1.55 mg/dL High 0.3 - 1.2 mg/dL [place] Bun/Cre Ratio 26 High [employer] Calcium [Mass/Vol] 9.7 mg/dL 8.6 - 10. 4 mg/dL [place] Chloride [Moles/Vol] 102 mmol/L 98 - 10 7 mmol/L [place] CO2 [Moles/Vol] 25 mmol/L 20 - 31 mmol/L [place] Creatinine [Mass/Vol] 1.7 mg/dL High 0.7 - 1.2 mg/dL [place] GFR 50 mL/min Low >60 [place] GFR Non- 41 mL/min Low >60 [place] GFR/1.73 sq M predicted among non-blacks MDRD (S/P/Bld) [Vol rate/Area] [place] Comment on above: Average GFR for 60-6 9 years old: 85 mL/min/1.73sq m Chronic Kidney Disease: <60 mL/min/1.73sq m Kidney failure: <15 mL/min/1.73sq m eGFR calculated using average adult body mass. Additional eGFR calculator available at: http://www.LineHop/multiple_crcl_2012.htm GFR/1.73 sq M predicted among non-blacks MDRD (S/P/Bld) [Vol rate/Area] NOT REPORTED [place] Glucose [Mass/Vol] 97 mg/dL 70 - 99 mg/dL [place] Interpretation and review of laboratory results Abnormal [place] Potassium [Moles/Vol] 4.9 mmol/L 3.7 - 5.3 mmol/L [place] Protein [Mass/Vol] 8.1 g/dL 6.4 - 8.3 g/dL [place] Sodium [Moles/Vol] 138 mmol/L 135 - 144 mmol/L [place] Urea nitrogen [Mass/Vol] 45 mg/dL High 8 - 23 mg/dL [place] Hemoglobin A1Con 08-14-2020 Glucose [Mass/Vol] 151 mg/dL [place] Comment on above: The ADA and AACC rec ommend providing the estimated average glucose result to permit better patient understanding of their HBA1c result. HbA1c (Bld) [Mass fraction] 6.9 % High 4 - 6 % [place] Interpretation and review of laboratory results Abnormal [place] Protime-INRon 08-14-2020 INR Coag (PPP) [Relative time] 2.8 {INR} [place] Comment on above: Non-therapeutic Range: INR = 0.9-1.2 Therapeutic Range: Moderate Anticoagulant Intensity: INR = 2.0-3.0 High Anticoagulant Intensity: INR = 2.5-3.5 Interpretation and review of laboratory results Abnormal [place] PT Coag (PPP) [Time] 28.6 s High [place] [facility]time-INRon 05-14-2020 INR Coag (PPP) [Relative time] 2.7 {INR} [place] [facility]-IN[facility] 04-02-2020 INR Coag (PPP) [Relative time] 2.8 {INR} [place] CBC Auto Differentialon 02-05 Basophils (Bld) [#/Vol] 0.10 10*3/uL [place] Basophils/100 WBC (Bld) 1 % 0 - 2 % [place] Differential Type YES [place] Eosinophils (Bld) [#/Vol] 0.30 10*3/uL [place] Eosinophils/100 WBC (Bld) 3 % 0 - 5 % [place] Erythrocyte distribution width (RBC) [Ratio] 14.8 % 12.1 - 15.2 % [place] Hematocrit (Bld) [Volume fraction] 44.7 % 41 - 53 % [place] Hemoglobin (Bld) [Mass/Vol] 15.2 g/dL 13.5 - 17.5 g/dL [place] Interpretation and review of laboratory results Abnormal [place] Lymphocytes (Bld) [#/Vol] 1.70 10*3/uL [place] Lymphocytes/100 WBC (Bld) 17 % 13 - 44 % [place] MCH (RBC) [Entitic mass] 31.4 pg 26 - 34 pg [place] MCHC (RBC) [Mass/Vol] 34.0 g/dL 31 - 3 7 g/dL [place] MCV (RBC) [Entitic vol] 92.1 fL 80 - 100 fL [place] Monocytes (Bld) [#/Vol] 1.00 10*3/uL [place] Monocytes/100 WBC (Bld) 10 % High 5 - 9 % [place] Platelet mean volume (Bld) [Entitic vol] NOT REPORTED 6 - 12 fL [place] Platelets (Bld) [#/Vol] 208 10*3/uL [place] Platelets (Bld) [#/Vol] NOT REPORTED [place] RBC (Bld) [#/Vol] 4.85 10*6/uL 4.5 - 5.9 m/uL [place] RBC morphology finding Nom (Bld) NOT REPORTED [place] Segmented neutrophils/100 WBC (Bld) 69 % 39 - 75 % [place] Segs Absolute 7.10 High [employer] WBC (Bld) [#/Vol] NOT REPORTED per 100 WBC [place] WBC (Bld) [#/Vol] 10.1 10*3/uL [place] WBC Morphology NOT REPORTED [place] Comprehensive Metabolic Pane yonis 02-26-2020 Albumin [Mass/Vol] 4.3 g/dL 3.5 - 5.2 g/dL [place] Albumin/Globulin [Mass ratio] NOT REPORTED [place] ALP [Catalytic activity/Vol] 55 U/L 40 - 129 U/L [place] ALT [Catalytic activity/Vol] 21 U/L 5 - 41 U/L [place] Anion gap [Moles/Vol] 11 mmol/L 9 - 17 mmol/L [place] AST [Catalytic activity/Vol] 23 U/L <40 [place] Bilirubin Ql (U) 1.35 mg/dL High 0.3 - 1.2 mg/dL [place] Bun/Cre Ratio 19 [employer] Calcium [Mass/Vol] 10.5 mg/dL High 8.6 - 10. 4 mg/dL [place] Chloride [Moles/Vol] 101 mmol/L 98 - 10 7 mmol/L [place] CO2 [Moles/Vol] 26 mmol/L 20 - 31 mmol/L [place] Creatinine [Mass/Vol] 1.67 mg/dL High 0.7 - 1.2 mg/dL [place] GFR 51 mL/min Low >60 [place] GFR Non- 42 mL/min Low >60 [place] GFR/1.73 sq M predicted among non-blacks MDRD (S/P/Bld) [Vol rate/Area] [place] Comment on above: Average GFR for 60-6 9 years old: 85 mL/min/1.73sq m Chronic Kidney Disease: <60 mL/min/1.73sq m Kidney failure: <15 mL/min/1.73sq m eGFR calculated using average adult body mass. Additional eGFR calculator available at: http://www.LineHop/multiple_crcl_2012.htm GFR/1.73 sq M predicted among non-blacks MDRD (S/P/Bld) [Vol rate/Area] NOT REPORTED [place] Glucose [Mass/Vol] 91 mg/dL 70 - 99 mg/dL [place] Interpretation and review of laboratory results Abnormal [place] Potassium [Moles/Vol] 5.0 mmol/L 3.7 - 5.3 mmol/L [place] Protein [Mass/Vol] 7.8 g/dL 6.4 - 8.3 g/dL [place] Sodium [Moles/Vol] 138 mmol/L 135 - 144 mmol/L [place] Urea nitrogen [Mass/Vol] 31 mg/dL High 8 - 23 mg/dL [place] Lipid Panelon 02-26-2020 Cholesterol [Mass/Vol] 131 mg/dL <200 [place] Comment on above: Cholesterol Guidelines: <200 Desirable 200-240 Borderline >240 Undesirable Cholesterol in HDL [Mass/Vol] 33 mg/dL Low >40 [place] Comment on above: HDL Guidelines: <40 Undesirable 40-59 Borderline >59 Desirable Cholesterol in LDL [Mass/Vol] 62 mg/dL 0 - 130 mg/dL [place] Comment on above: LDL Guidelines: <100 Desirable 100-129 Near to/above Desirable 130-159 Borderline >159 Undesirable Direct (measured) LDL and calculated LDL are not interchangeable tests. Cholesterol in VLDL [Mass/Vol] NOT REPORTED High 1 - 30 mg/dL [place] Cholesterol.total/Cho lesterol in HDL [Mass ratio] 4 {ratio} <5 [place] Interpretation and review of laboratory results Abnormal [place] Triglyceride [Mass/Vol] 182 mg/dL High <150 [place] Comment on above: Triglyceride Guidelines: <150 Desirable 150-199 Borderline 200-499 High >499 Very high Based on AHA Guidelines for fasting triglyceride, May 2012. Magnesiumon 02-26-2020 Magnesium [Mass/Vol] 2.1 mg/dL 1.6 - 2 .6 mg/dL [place] Otheron 02-26-2020 Immature granulocytes (Bld) [#/Vol] NOT REPORTED [place] Patient Fasting?on 0 Patient Fasting? YES [place] TSH with Reflexon 02-26-2020 TSH Qn 2.56 m[IU]/L [place] Vitamin D 25 Hydroxyon 02-25 Vit D, 25-Hydroxy 54.9 ng/mL 30 - 100 ng/mL [place] Comment on above: Reference Range: Vitamin D status Range Deficiency <20 ng/mL Mild Deficiency 20-30 ng/mL Sufficiency 30-100 ng/mL Toxicity >100 ng/mL [facility]-INRon 02-20-2020 INR Coag (PPP) [Relative time] 2.8 {INR} [place] Comprehensive Metabolic Pane yonis 01-21-2020 Albumin [Mass/Vol] 4.2 g/dL 3.5 - 5.2 g/dL [place] Albumin/Globulin [Mass ratio] NOT REPORTED [place] ALP [Catalytic activity/Vol] 58 U/L 40 - 129 U/L [place] ALT [Catalytic activity/Vol] 22 U/L 5 - 41 U/L [place] Anion gap [Moles/Vol] 10 mmol/L 9 - 17 mmol/L [place] AST [Catalytic activity/Vol] 21 U/L <40 [place] Bilirubin Ql (U) 0.80 mg/dL 0.3 - 1.2 mg/dL [place] Bun/Cre Ratio 22 High [employer] Calcium [Mass/Vol] 10.1 mg/dL 8.6 - 10. 4 mg/dL [place] Chloride [Moles/Vol] 104 mmol/L 98 - 10 7 mmol/L [place] CO2 [Moles/Vol] 26 mmol/L 20 - 31 mmol/L [place] Creatinine [Mass/Vol] 1.85 mg/dL High 0.7 - 1.2 mg/dL [place] GFR 45 mL/min Low >60 [place] GFR Non- 37 mL/min Low >60 [place] GFR/1.73 sq M predicted among non-blacks MDRD (S/P/Bld) [Vol rate/Area] [place] Comment on above: Average GFR for 60-6 9 years old: 85 mL/min/1.73sq m Chronic Kidney Disease: <60 mL/min/1.73sq m Kidney failure: <15 mL/min/1.73sq m eGFR calculated using average adult body mass. Additional eGFR calculator available at: http://www.LineHop/multiple_crcl_2012.htm GFR/1.73 sq M predicted among non-blacks MDRD (S/P/Bld) [Vol rate/Area] NOT REPORTED [place] Glucose [Mass/Vol] 79 mg/dL 70 - 99 mg/dL [place] Interpretation and review of laboratory results Abnormal [place] Potassium [Moles/Vol] 4.7 mmol/L 3.7 - 5.3 mmol/L [place] Protein [Mass/Vol] 7.5 g/dL 6.4 - 8.3 g/dL [place] Sodium [Moles/Vol] 140 mmol/L 135 - 144 mmol/L [place] Urea nitrogen [Mass/Vol] 40 mg/dL High 8 - 23 mg/dL [place] Hemoglobin A1Con 01-21-2020 Glucose [Mass/Vol] 140 mg/dL [place] Comment on above: The ADA and AACC rec ommend providing the estimated average glucose result to permit better patient understanding of their HBA1c result. HbA1c (Bld) [Mass fraction] 6.5 % High 4 - 6 % [place] Interpretation and review of laboratory results Abnormal [place] Lipid Panelon 01-21-2020 Cholesterol [Mass/Vol] 127 mg/dL <200 [place] Comment on above: Cholesterol Guidelines: <200 Desirable 200-240 Borderline >240 Undesirable Cholesterol in HDL [Mass/Vol] 30 mg/dL Low >40 [place] Comment on above: HDL Guidelines: <40 Undesirable 40-59 Borderline >59 Desirable Cholesterol in LDL [Mass/Vol] 57 mg/dL 0 - 130 mg/dL [place] Comment on above: LDL Guidelines: <100 Desirable 100-129 Near to/above Desirable 130-159 Borderline >159 Undesirable Direct (measured) LDL and calculated LDL are not interchangeable tests. Cholesterol in VLDL [Mass/Vol] NOT REPORTED High 1 - 30 mg/dL [place] Cholesterol.total/Cho lesterol in HDL [Mass ratio] 4.2 {ratio} <5 [place] Interpretation and review of laboratory results Abnormal [place] Triglyceride [Mass/Vol] 201 mg/dL High <150 [place] Comment on above: Triglyceride Guidelines: <150 Desirable 150-199 Borderline 200-499 High >499 Very high Based on AHA Guidelines for fasting triglyceride, May 2012. Patient Fasting?on 0 Patient Fasting? yes [place] Protime-INRon 01-09-2020 INR Coag (PPP) [Relative time] 2.6 {INR} [place] Protime-INRon 10-17-2019 INR Coag (PPP) [Relative time] 2.6 {INR} [place] Basic Metabolic Panelon Anion gap [Moles/Vol] 12 mmol/L 9 - 17 mmol/L [facility] Work Phone: Bun/Cre Ratio 23 High [employer] Work Phone: Calcium [Mass/Vol] 10.6 mg/dL High 8.6 - 10. 4 mg/dL [employer] Phone: Chloride [Moles/Vol] 104 mmol/L 98 - 10 7 mmol/L [employer] Phone: CO2 [Moles/Vol] 24 mmol/L 20 - 31 mmol/L [employer] Phone: Creatinine [Mass/Vol] 1.65 mg/dL High 0.7 - 1.2 mg/dL [employer] Phone: GFR 51 mL/min Low >60 [employer] Phone: GFR Non- 42 mL/min Low >60 [employer] Phone: GFR/1.73 sq M predicted among non-blacks MDRD (S/P/Bld) [Vol rate/Area] NOT REPORTED [employer] Phone: GFR/1.73 sq M predicted among non-blacks MDRD (S/P/Bld) [Vol rate/Area] [employer] Phone: Comment on above: Average GFR for 60-6 9 years old: 85 mL/min/1.73sq m Chronic Kidney Disease: <60 mL/min/1.73sq m Kidney failure: <15 mL/min/1.73sq m eGFR calculated using average adult body mass. Additional eGFR calculator available at: http://www.ZarthCode.com/multiple_crcl_2012.htm Glucose [Mass/Vol] 101 mg/dL High 70 - 99 mg/dL [employer] Phone: Interpretation and review of laboratory results Abnormal [employer] Phone: Potassium [Moles/Vol] 5.0 mmol/L 3.7 - 5.3 mmol/L [employer] Phone: Sodium [Moles/Vol] 140 mmol/L 135 - 144 mmol/L [employer] Phone: Urea nitrogen [Mass/Vol] 38 mg/dL High 8 - 23 mg/dL [employer] Phone: Basic Metabolic PanelOrdered By: Rafa Nicole on 09-02-2019 Anion gap [Moles/Vol] 14 mmol/L 9 - 17 mmol/L [employer] Phone: Bun/Cre Ratio 27 High [employer] Work Phone: Calcium [Mass/Vol] 11.0 mg/dL High 8.6 - 10. 4 mg/dL [employer] Phone: Chloride [Moles/Vol] 100 mmol/L 98 - 10 7 mmol/L [employer] Phone: CO2 [Moles/Vol] 24 mmol/L 20 - 31 mmol/L [employer] Phone: Creatinine [Mass/Vol] 1.9 mg/dL High 0.7 - 1.2 mg/dL [employer] Phone: GFR 44 mL/min Low >60 [employer] Phone: GFR Comment [employer] Phone: Comment on above: Average GFR for 60-6 9 years old: 85 mL/min/1.73sq m Chronic Kidney Disease: <60 mL/min/1.73sq m Kidney failure: <15 mL/min/1.73sq m eGFR calculated using average adult body mass. Additional eGFR calculator available at: http://www.ZarthCode.[employer]/multiple_crcl_2012.htm GFR Non- 36 mL/min Low >60 [employer] Phone: GFR Staging NOT REPORTED [employer] Work Phone: Glucose [Mass/Vol] 117 mg/dL High 70 - 99 mg/dL [employer] Phone: Interpretation and review of laboratory results Abnormal [employer] Phone: Potassium [Moles/Vol] 5.5 mmol/L High 3.7 - 5.3 mmol/L [employer] Phone: Sodium [Moles/Vol] 138 mmol/L 135 - 144 mmol/L [employer] Phone: Urea nitrogen [Mass/Vol] 51 mg/dL High 8 - 23 mg/dL [employer] Phone: Protime-INROrdered By: Crispin patel Provider on 09-02-2019 INR Coag (PPP) [Relative time] 2.5 {INR} [employer] Phone: NM Cardiac Stress Test Nucle ar ImagingOrdered By: Rafa Nicole on 08-19-2019 Radiology exam is complete. No Radiologist dictation. Please follow up with ordering provider. [employer] Phone: Basic Metabolic PanelOrdered By: Eloina Simmonsv on 08-14-2019 Anion gap [Moles/Vol] 13 mmol/L 9 - 17 mmol/L [employer] Phone: Bun/Cre Ratio 20 [employer] Work Phone: Calcium [Mass/Vol] 10.4 mg/dL 8.6 - 10. 4 mg/dL [employer] Phone: Chloride [Moles/Vol] 103 mmol/L 98 - 10 7 mmol/L [employer] Phone: CO2 [Moles/Vol] 26 mmol/L 20 - 31 mmol/L [employer] Phone: Creatinine [Mass/Vol] 1.69 mg/dL High 0.7 - 1.2 mg/dL [employer] Phone: GFR 50 mL/min Low >60 [employer] Phone: GFR Comment [employer] Phone: Comment on above: Average GFR for 60-6 9 years old: 85 mL/min/1.73sq m Chronic Kidney Disease: <60 mL/min/1.73sq m Kidney failure: <15 mL/min/1.73sq m eGFR calculated using average adult body mass. Additional eGFR calculator available at: http://www.LineHop/multiple_crcl_2012.htm GFR Non- 41 mL/min Low >60 [facility] Work Phone: GFR Staging NOT REPORTED [facility] Work Phone: Glucose [Mass/Vol] 86 mg/dL 70 - 99 mg/dL [facility] Work Phone: Potassium [Moles/Vol] 4.2 mmol/L 3.7 - 5.3 mmol/L [facility] Work Phone: Sodium [Moles/Vol] 142 mmol/L 135 - 144 mmol/L [facility] Work Phone: Urea nitrogen [Mass/Vol] 34 mg/dL High 8 - 23 mg/dL [facility] Work Phone: CBC WITH AUTO DIFFERENTIALOr dered By: lEoina Pat on 08-14-2019 Absolute Eos # 0.20 [facility] Work Phone: Absolute Immature Granulocyte NOT REPORTED [facility] Work Phone: Absolute Lymph # 1.40 [facility] alth Work Phone: Absolute [place] # 0.80 [facility] Work Phone: Basophils (Bld) [#/Vol] 0.00 10*3/uL [facility] Work Phone: Basophils/100 WBC (Bld) 0 % 0 - 2 % [facility] Work Phone: Differential Type YES [facility] ealt Work Phone: Eosinophils/100 WBC (Bld) 2 % 0 - 5 % [employer] Phone: Erythrocyte distribution width (RBC) [Ratio] 15.0 % 12.1 - 15.2 % [employer] Phone: Hematocrit (Bld) [Volume fraction] 44.2 % 41 - 53 % [facility] Phone: Hemoglobin (Bld) [Mass/Vol] 14.4 g/dL 13.5 - 17.5 g/dL [employer] Phone: Immature Granulocytes NOT REPORTED 0 % [facility] Work Phone: Lymphocytes/100 WBC (Bld) 15 % 13 - 44 % [employer] Phone: MCH (RBC) [Entitic mass] 29.9 pg 26 - 34 pg [employer] Phone: MCHC (RBC) [Mass/Vol] 32.7 g/dL 31 - 3 7 g/dL [employer] Phone: MCV (RBC) [Entitic vol] 91.6 fL 80 - 100 fL [employer] Phone: Monocytes/100 WBC (Bld) 9 % 5 - 9 % [facility] Phone: MPV NOT REPORTED 6 - 12 fL [employer] Phone: NRBC Automated NOT REPORTED per 100 WBC [employer] ealt Work Phone: Platelet Estimate NOT REPORTED [employer] Phone: Platelets (Bld) [#/Vol] 248 10*3/uL [employer] Phone: RBC (Bld) [#/Vol] 4.82 10*6/uL 4.5 - 5.9 m/uL [employer] Phone: RBC morphology finding Nom (Bld) NOT REPORTED [facility] Phone: Segmented neutrophils/100 WBC (Bld) 74 % 39 - 75 % [employer] Work Phone: Segs Absolute 6.40 [employer] Work Phone: WBC (Bld) [#/Vol] 8.8 10*3/uL [employer] Phone: WBC Morphology NOT REPORTED [facility] Work Phone: Hepatic Function PanelOrdere d By: Eloina Pat on 08-14-2019 Albumin [Mass/Vol] 4.4 g/dL 3.5 - 5.2 g/dL [employer] Phone: Albumin/Globulin Ratio NOT REPORTED [employer] Phone: ALP [Catalytic activity/Vol] 66 U/L 40 - 129 U/L [employer] Phone: ALT [Catalytic activity/Vol] 24 U/L 5 - 41 U/L [employer] Phone: AST [Catalytic activity/Vol] 25 U/L <40 [employer] Phone: Bilirubin [Mass/Vol] 1.92 mg/dL High 0.3 - 1 .2 mg/dL [employer] Phone: Bilirubin, Indirect 1.6 mg/dL High 0 - 1 mg/dL [employer] Phone: Bilirubin.indirect [Mass/Vol] 0.32 mg/dL High <0.31 [employer] Phone: Globulin NOT REPORTED 1.5 - 3.8 g/dL [employer] Phone: Protein [Mass/Vol] 7.7 g/dL 6.4 - 8.3 g/dL [employer] Phone: No Panel InformationOrdered By: Eloina Pat on 08-14-2019 Interpretation and review of laboratory results Abnormal [employer] Phone: Basic Metabolic PanelOrdered By: Eloina Pat on 08-12-2019 Anion gap [Moles/Vol] 13 mmol/L 9 - 17 mmol/L [employer] Phone: Bun/Cre Ratio 19 [employer] Phone: Calcium [Mass/Vol] 10.5 mg/dL High 8.6 - 10. 4 mg/dL [employer] Phone: Chloride [Moles/Vol] 103 mmol/L 98 - 10 7 mmol/L [employer] Phone: CO2 [Moles/Vol] 24 mmol/L 20 - 31 mmol/L [employer] Phone: Creatinine [Mass/Vol] 1.68 mg/dL High 0.7 - 1.2 mg/dL [employer] Phone: GFR 51 mL/min Low >60 [employer] Phone: GFR Comment [employer] Phone: Comment on above: Average GFR for 60-6 9 years old: 85 mL/min/1.73sq m Chronic Kidney Disease: <60 mL/min/1.73sq m Kidney failure: <15 mL/min/1.73sq m eGFR calculated using average adult body mass. Additional eGFR calculator available at: http://www.ZarthCode.[employer]/multiple_crcl_2012.htm GFR Non- 42 mL/min Low >60 [employer] Phone: GFR Staging NOT REPORTED [employer] Phone: Glucose [Mass/Vol] 92 mg/dL 70 - 99 mg/dL [employer] Phone: Potassium [Moles/Vol] 4.7 mmol/L 3.7 - 5.3 mmol/L [employer] Phone: Sodium [Moles/Vol] 140 mmol/L 135 - 144 mmol/L [employer] Phone: Urea nitrogen [Mass/Vol] 32 mg/dL High 8 - 23 mg/dL [employer] Phone: Brain Natriuretic PeptideOrd ered By: [employer] on 08-12-2019 BNP Interpretation Pro-BNP Reference Range: [employer] Phone: Comment on above: Rule Out: <300 Miller Zone: Age <50 300-450 Age 50-75 300-900 Age >75 300-1800 Usually represents mild to moderate HF but other cardiopulmonary causes cannot be ruled out. Rule In: Age <50 >450 Age 50-75 >900 Age >75 >1800 Natriuretic peptide B (Bld) [Mass/Vol] 3728 pg/mL High <300 [employer] Phone: Comment on above: Pro-BNP results william ot be compared to BNP results. CBC Auto DifferentialOrdered By: [employer] on 08-12-2019 Absolute Eos # 0.10 [facility] Work Phone: Absolute Immature Granulocyte NOT REPORTED [employer] Work Phone: Absolute Lymph # 1.30 [facility] Work Phone: Absolute [place] # 0.70 [facility] Work Phone: Basophils (Bld) [#/Vol] 0.00 10*3/uL [employer] Work Phone: Basophils/100 WBC (Bld) 0 % 0 - 2 % [employer] Work Phone: Differential Type YES [facility] ealt Work Phone: Eosinophils/100 WBC (Bld) 2 % 0 - 5 % [employer] Work Phone: Erythrocyte distribution width (RBC) [Ratio] 15.1 % 12.1 - 15.2 % [employer] Work Phone: Hematocrit (Bld) [Volume fraction] 43.0 % 41 - 53 % [employer] Work Phone: Hemoglobin (Bld) [Mass/Vol] 14.1 g/dL 13.5 - 17.5 g/dL [employer] Work Phone: Immature Granulocytes NOT REPORTED 0 % [facility] Work Phone: Interpretation and review of laboratory results Abnormal [employer] Work Phone: Lymphocytes/100 WBC (Bld) 15 % 13 - 44 % [employer] Work Phone: MCH (RBC) [Entitic mass] 29.9 pg 26 - 34 pg [employer] Work Phone: MCHC (RBC) [Mass/Vol] 32.8 g/dL 31 - 3 7 g/dL [employer] Phone: MCV (RBC) [Entitic vol] 90.9 fL 80 - 100 fL [employer] Work Phone: Monocytes/100 WBC (Bld) 8 % 5 - 9 % [employer] Work Phone: MPV NOT REPORTED 6 - 12 fL [employer] Work Phone: NRBC Automated NOT REPORTED per 100 WBC [facility] WestB[facility] ealt Work Phone: Platelet Estimate NOT REPORTED [facility] Work Phone: Platelets (Bld) [#/Vol] 224 10*3/uL [employer] Work Phone: RBC (Bld) [#/Vol] 4.73 10*6/uL 4.5 - 5.9 m/uL [facility] Work Phone: RBC morphology finding Nom (Bld) NOT REPORTED [facility] Work Phone: Segmented neutrophils/100 WBC (Bld) 75 % 39 - 75 % [employer] Work Phone: Segs Absolute 6.80 High CLASEMOVIL [facility] [employer] Work Phone: WBC (Bld) [#/Vol] 8.9 10*3/uL [employer] Work Phone: WBC Morphology NOT REPORTED [facility] Work Phone: CT ABDOMEN PELVIS W IV CONTR ASTOrdered By: Eloina Pat on 08-12-2019 1. Gallstones but no CT evidence for cholecystitis. 2. No other acute inflammatory process in the abdomen or pelvis. 3. Small pleural effusions and passive congestion in the liver suggesting volume overload. [employer] Phone: EXAMINATION: CT ABDO MEN PELVIS W IV CONTRAST HISTORY: With IV Contrast ONLY Mid abdominal pain for one week. COMPARISON: None. TECHNIQUE: CT examination of the abdomen and pelvis following the administration of 75 mL IV Isovue-370 intravenous contrast. Coronal and sagittal reformations were performed. Dose reduction techniques were achieved by using automated exposure control and/or adjustment of mA and/or kV according to patient size and/or use of iterative reconstruction technique. FINDINGS: LUNG BASE FINDINGS: There is atelectasis in the lingula. There are small pleural effusions. ABDOMINAL FINDINGS: There is passive congestion of liver. There are gallstones but no gallbladder distention or gallbladder wall thickening. There is a scar in the lateral portion of the spleen. No splenomegaly. No pancreatitis or biliary dilatation. Nephrograms symmetric. No hydronephrosis. Abdominal aorta is calcified but has no aneurysm or dissection. No adenopathy in the retroperitoneum or mesentery. No dilatation of stomach, duodenum, small bowel, or colon. No abnormal thickness or dilatation of the small or large bowel. The appendix is normal. Small periumbilical hernia contains fat. PELVIC FINDINGS: Mild prostatomegaly. No bladder distention. No adenopathy in the pelvic or inguinal regions. [employer] Phone: Andrés, Mhpn Incoming Radiant Results From [employer] - 08/12/2019 2:28 PM EST EXAMINATION: CT ABDOMEN PELVIS W IV CONTRAST HISTORY: With IV Contrast ONLY Mid abdominal pain for one week. COMPARISON: None. TECHNIQUE: CT examination of the abdomen and pelvis following the administration of 75 mL IV Isovue-370 intravenous contrast. Coronal and sagittal reformations were performed. Dose reduction techniques were achieved by using automated exposure control and/or adjustment of mA and/or kV according to patient size and/or use of iterative reconstruction technique. FINDINGS: LUNG BASE FINDINGS: There is atelectasis in the lingula. There are small pleural effusions. ABDOMINAL FINDINGS: There is passive congestion of liver. There are gallstones but no gallbladder distention or gallbladder wall thickening. There is a scar in the lateral portion of the spleen. No splenomegaly. No pancreatitis or biliary dilatation. Nephrograms symmetric. No hydronephrosis. Abdominal aorta is calcified but has no aneurysm or dissection. No adenopathy in the retroperitoneum or mesentery. No dilatation of stomach, duodenum, small bowel, or colon. No abnormal thickness or dilatation of the small or large bowel. The appendix is normal. Small periumbilical hernia contains fat. PELVIC FINDINGS: Mild prostatomegaly. No bladder distention. No adenopathy in the pelvic or inguinal regions. IMPRESSION: 1. Gallstones but no CT evidence for cholecystitis. 2. No other acute inflammatory process in the abdomen or pelvis. 3. Small pleural effusions and passive congestion in the liver suggesting volume overload. [employer] Phone: D-Dimer, QuantitativeOrdered By: [employer] on 08-12-2019 D-Dimer, Quant <0.19 [employer] Phone: Comment on above: Elevated levels of D dimer can be seen in any state of coagulation activation including DVT, PE, arterial thrombosis, DIC, inflamatory disease, trauma, malignancy, sepsis, infection, hematoma, liver disease, post surgical state, , atherosclerosis, old age. When combined with a low clinical probability, a D dimer value of <0.50 mg/L is considered negative for DVT and PE (negative predictive value of 98%). Hepatic Function PanelOrdere d By: [employer] on 08-12-2019 Albumin [Mass/Vol] 4.7 g/dL 3.5 - 5.2 g/dL [employer] Phone: Albumin/Globulin Ratio NOT REPORTED [employer] Phone: ALP [Catalytic activity/Vol] 68 U/L 40 - 129 U/L [employer] Phone: ALT [Catalytic activity/Vol] 26 U/L 5 - 41 U/L [employer] Phone: AST [Catalytic activity/Vol] 35 U/L <40 [facility] Work Phone: Bilirubin [Mass/Vol] 2.00 mg/dL High 0.3 - 1 .2 mg/dL [employer] Work Phone: Bilirubin, Indirect 1.68 mg/dL High 0 - 1 mg/dL [employer] Phone: Bilirubin.indirect [Mass/Vol] 0.32 mg/dL High <0.31 [employer] Work Phone: Globulin NOT REPORTED 1.5 - 3.8 g/dL [facility] Work Phone: Interpretation and review of laboratory results Abnormal [facility] Work Phone: Protein [Mass/Vol] 7.9 g/dL 6.4 - 8.3 g/dL [facility] Phone: LipaseOrdered By: Eloina Myles on 08-12-2019 Lipase [Catalytic activity/Vol] 15 U/L 13 - 60 U/L [facility] Work Phone: No Panel InformationOrdered By: Eloina Pat on 08-12-2019 Interpretation and review of laboratory results Abnormal [employer] Work Phone: TroponinOrdered By: Eloina Pat on 08-12-2019 Troponin Interp [facility]Talk[facility] Work Phone: Comment on above: Reference Range: <0.03 Within reference range. 0.03-0.09 Possible myocardial damage. Repeat at appropriate intervals to rule out chronic elevation. >= 0.10 Indicative of myocardial damage. Patients with high levels of Biotin oral intake (i.e >5mg/day) may have falsely decreased Troponin T levels. Samples collected within 8 hours of biotin intake may require additional information for diagnosis. Troponin T <0.03 <0.03 ng/mL [employer] Work Phone: Comment on above: Troponin T results c annot be compared to Troponin-I results. Troponin, High Sensitivity NOT REPORTED 0 - 22 ng/L [employer] Phone: XR CHEST PORTABLEOrdered By: Eloina Pat on 08-12-2019 Mild cardiomegaly an d pulmonary venous congestion but no colleen edema. [employer] Phone: EXAMINATION: XR CHES T PORTABLE COMPARISON: 02/26/2019. CLINICAL DATA: Shortness of breath for one week. FINDINGS: There is cardiomegaly and pulmonary venous congestion but no colleen edema. No pneumothorax or pleural effusion. No focal infiltrate has developed. The left subclavian cardiac pacer defibrillator wires in the right ventricle. [employer] Phone: Andrés, Mhpn Incoming Radiant Results From [employer] - 08/12/2019 11:36 AM EST EXAMINATION: XR CHEST PORTABLE COMPARISON: 02/26/2019. CLINICAL DATA: Shortness of breath for one week. FINDINGS: There is cardiomegaly and pulmonary venous congestion but no colleen edema. No pneumothorax or pleural effusion. No focal infiltrate has developed. The left subclavian cardiac pacer defibrillator wires in the right ventricle. IMPRESSION: Mild cardiomegaly and pulmonary venous congestion but no colleen edema. [employer] Phone: Protime-INRon 06-03-2019 INR Coag (PPP) [Relative time] 2.8 {INR} [facility]JooxCENTER[facility] CENTERJOAN Protime-INRon 04-11-2019 INR Coag (PPP) [Relative time] 2.5 {INR} [facility], JOAN PROGRESSon 10-31-2017 [facility] NOTES Normal [facility] NURSING NOTEon 10-19-2017 [facility] NOTES Normal [facility] NOTES Normal [facility] NOT[facility] Normal [facility] NOTES Normal [facility] NOTES Normal [facility] XR CHEST PA AND LATERALon XR CHEST PA AND LATERAL XR CHEST PA AND LATERAL, 10/19/2017 6:39 AMCLINICAL STATEMENT: ICD placement.COMPARISON: None.FINDINGS: Frontal and lateral views of the chest were obtained. Left pectoral ICD/pacing device in place with lead projecting into the region of the right ventricle.The cardiomediastinal silhouette is within normal limits. Lungs are clear without focal airspace consolidation. No pneumothorax or pleural effusion. Visualized portions of the upper abdomen are unremarkable.IMPRESSION: Left ICD placement. No postprocedure pneumothorax. Normal [facility] BRIEF OP NOTon 10-18-2017 [facility] HIM CAC NOTES Normal [facility] CBC(NO DIFF)on 10-18-2017 Erythrocyte distribution width Auto Ratio (RBC) 15.5 % High 11.5-14.5 [facility] Comment on above: Performed By: #### H EMOG, CMPF, PT ####Testing performed at [address] [address] Erythrocytes (RBC) 5.14 /cmm Normal 4.0-6.1 [facility] Comment on above: Performed By: #### H EMOG, CMPF, PT ####Testing performed at [address] [address] Hematocrit (HCT) 44.0 % Normal 42.0-52.0 [facility] Comment on above: Performed By: #### H EMOG, CMPF, PT ####Testing performed at [address] [address] Hemoglobin mass conc (Bld) 14.7 g/dL Normal 14.0-18.0 [facility] Comment on above: Performed By: #### H EMOG, CMPF, PT ####Testing performed at [address] [address] MCH 28.6 pg Normal 26.0-35.0 [facility] Comment on above: Performed By: #### H EMOG, CMPF, PT ####Testing performed at [address] [address] MCHC mass conc (RBC) 33.5 g/dL Normal 27.0-37.0 [facility] Comment on above: Performed By: #### H EMOG, CMPF, PT ####Testing performed at [address] [address] MCV 85.5 fL Normal 80.0-100.0 [facility] Comment on above: Performed By: #### H EMOG, CMPF, PT ####Testing performed at [address] [address] Platelet mean volume (PMV) 8.6 fL Normal 7.4-11.0 [facility] Comment on above: Performed By: #### H EMOG, CMPF, PT ####Testing performed at [address] [address] Platelets 211 /cmm Normal 130.0-400.0 [facility] Comment on above: Performed By: #### H EMOG, CMPF, PT ####Testing performed at [address] [address] WBC (Leukocytes) 9.2 /cmm Normal 3.6-11.0 [facility] Comment on above: Performed By: #### H EMOG, CMPF, PT ####Testing performed at [address] [address] CMP FASTINGon 10-18-2017 A:G RATIO 1.4 RATIO Normal 1.3-2.2 [facility] Comment on above: Performed By: #### H EMOG, CMPF, PT ####Testing performed at [address] [address] Alanine aminotransferase (ALT) 31 U/L Normal 17-63 [facility] Comment on above: Performed By: #### H EMOG, CMPF, PT ####Testing performed at [address] [address] Albumin 4.8 G/dl Normal 3.5-5.0 [facility] Comment on above: Performed By: #### H EMOG, CMPF, PT ####Testing performed at [address] [address] Alkaline phosphatase (ALP) 67 U/L Normal 38-126 [facility] Comment on above: Performed By: #### H EMOG, CMPF, PT ####Testing performed at [address] [address] Aspartate aminotransferase (AST) 29 U/L Normal 15-41 [facility] Comment on above: Performed By: #### H EMOG, CMPF, PT ####Testing performed at [address] [address] Bilirubin (total) 1.7 mg/dL High 0.2-1.2 [facility] Comment on above: Performed By: #### H AISHA MERRITT, PT ####Testing performed at [address] [address] BUN (urea nitrogen) 47 mg/dL High 7-20 [facility] Comment on above: Performed By: #### H CHE MERRITTF, PT ####Testing performed at [address] [address] Creatinine 1.6 mg/dL High 0.66-1.25 [facility] Comment on above: Performed By: #### H AISHA MERRITT, PT ####Testing performed at [address] [address] eGFR (non-black) Average GFR for 60-6 9 years old = 85. Normal [facility] Comment on above: Result Comment: Track Laying Supervisor megan Kidney disease, GFR = <60.Kidney failure, GFR = <15.The GFR estimate is not adjusted for extreme body surface area or acute process, nor has it been validated for women or ethnic groups other than and . Performed By: #### H AISHA MERRITT, PT ####Testing performed at [address] [address] eGFR (non-black) 47 mL/min/{1.73_m2} Normal [facility] Comment on above: Performed By: #### H AISHA MERRITT, PT ####Testing performed at [address] [address] eGFR (non-black) 57 mL/min/{1.73_m2} Normal [facility] Comment on above: Performed By: #### H AISHA MERRITT, PT ####Testing performed at [address] [address] Protein 8.2 g/dL Normal 6.3-8.2 [facility] Comment on above: Performed By: #### H AISHA MERRITT, PT ####[place] [address] Calcium 10.2 mg/dL Normal 8.4-10.2 [facility] Comment on above: Performed By: #### H AISHA MERRITT, PT ####[place] [address] Chloride 102 mmol/L Normal 98-107 [facility] Comment on above: Performed By: #### H AISHA MERRITT, PT ####[place] [address] CO2 25 mmol/L Normal 22-30 [facility] Comment on above: Performed By: #### H AISHA MERRITT, PT ####[place] [address] Glucose mass conc 138 mg/dL High 70-100 [facility] Comment on above: Result Comment: NORM AL <100 mg/dLPREDIABETES 101-126 mg/dLDIABETES 126 mg/dL or higher Performed By: #### H AISHA MERRITT, PT ####[place] [address] Potassium molar conc 5.3 mmol/L High 3.5-5.1 [facility] Comment on above: Performed By: #### H AISHA MERRITT, PT ####[place] [address] Sodium 137 mmol/L Normal 137-145 [facility] Comment on above: Performed By: #### H AISHA MERRITT, PT ####Testing performed at [place] [id number] HISTORY AND PHYSICALon 10-18 [facility] NOTES Normal [facility] MRSA SCREENon 10-18-2017 MRSA SCREEN Negative [facility] Comment on above: Performed By: #### M RSAST ####[place] [address] STAPH AUREUS SCREEN Negative [facility] Comment on above: Result Comment: TEST ING PERFORMED BY PCR Performed By: #### M RSAST ####[place] [address] NURSING NOTEon 10-18-2017 [facility] NOTES Normal [facility] NOT[facility] Normal [facility] NOT[facility] Normal [facility] NOTES Normal [facility] NOTES Normal [facility] NOTES Normal [facility] OP NOTEon 10-18-2017 [facility] NOTES Normal [facility] PLAN OF CAREon 10-18-2017 [facility] NOTES Normal [facility] PROGRESSon 10-18-2017 [facility] NOTES Normal [facility] PROTIMEon 10-18-2017 INR Coag RelTime (PPP) 1.40 {INR} High 0.88-1.12 [facility] Comment on above: Result Comment: 2.0- 3.0 THERAPEUTIC RANGE2.5-3.5 PROSTHETIC VALVE RANGE Performed By: #### H EMOG, CMPF, PT ####[place] [address] Prothrombin time (PT) Coag time (PPP) 17.1 s High 11.6-14.0 [facility] Comment on above: Performed By: #### H EMOG, CMPF, PT ####[place] [address] PROGRESSon 09-25-2017 [facility] NOTES Normal [facility] MR CARDIAC MORPHOLOGY WITH A ND WITHOUT CONTRASTon 09-18-2017 MR CARDIAC MORPHOLOGY WITH AND WITHOUT CONTRAST EXAMINATION:MR CARDIAC MORPHOLOGY WITH AND WITHOUT CONTRASTHISTORY:ORDERING SYSTEM PROVIDED HISTORY: Ischemic cardiomyopathy, TECHNOLOGIST PROVIDED HISTORY: Reason for exam: Ischemic cardiomyopathyIllness/Ot herEncounter Type: InitialAdditional signs and symptoms: SHORTNESS OF BREATHORDERING SYSTEM PROVIDED DIAGNOSIS CODES:I25.5 Ischemic cardiomyopathyIschemic cardiomyopathy.COMPARISO N:None available.TECHNIQUE:Card iac MRI was performed using 3-plane localizing SSFP images, multiplanar SSFP cine images, short-axis double-inversion recovery and triple-inversion recovery images, pre- and postcontrast 1st pass perfusion images, as well as delayed postcontrast myocardial-suppressed inversion recovery images. Patient received 40 mL Dotarem IV.FINDINGS:The heart is enlarged. The left ventricular end diastolic cavitary diameter on 4-chamber cine images is 6.1 cm. Mild mitral regurgitation is suggested. There is marked hypokinesis of the mid anterior wall and anteroseptal wall as well as moderate hypokinesis of the other midventricular segments. There is akinesis of the apical anterior wall and [id number] hypokinesis of the other apical segments. On delayed postcontrast images, there is limited evaluation due to artifact. In the mid anterior and anteroseptal [place] and in the apical anterior wall there is a large region of abnormal enhancement compatible with ischemic scar. This is moderate to severe, involving greater than 50% of the myocardial thickness in the mid anterior wall with probable transmural infarct involving the apical anterior wall for example on series 41. There is also extension of transmural infarct into a portion of the apical septal wall, and there is near transmural involvement of the mid anteroseptal wall in portions. There is a linear region of intramyocardial enhancement which is not subendocardial in the mid septal wall, but this appears contiguous with the above-described subendocardial infarct and may represent an unusual pattern of ischemic scar. There is also a small region of abnormal enhancement in the mid inferoseptal wall which may be artifactual, as there is artifact in this region on other sequences. A focus of ischemic scar cannot be excluded at this site, however.Based on endocardial contours, the left ventricular ejection fraction is estimated at 25% with an end-diastolic volume of 256 mL (normal 77-195), and systolic volume of 194 mL (normal 19-72), and stroke volume 62 mL (normal 51-133). There are small bilateral pleural effusions. There is minimal pericardial fluid which is within physiologic limits. Signal in the pulmonary interstitium could represent mild interstitial pulmonary edema.IMPRESSION:1. Large region of ischemic scar involving the LAD distribution, predominantly in the mid anterior and mid anteroseptal [place] and in the apical anterior wall. Most of the infarct appears moderate to severe, involving greater than 50% of the myocardial thickness in portions, and there is a region of severe transmural infarct involving the apical anterior wall.2. Linear intramyocardial enhancement in the mid septum is contiguous in portions with the subendocardial enhancement described above and is favored to represent an unusual pattern of ischemic scar rather than nonischemic etiology. Small linear focus of apparent enhancement in the inferoseptal wall is suspected to be artifactual.3. Dilated cardiomyopathy with estimated left ventricular ejection fraction of 25%. Probable mild mitral regurgitation. There are multiple regions of hypokinesis, with the most severe hypokinesis in the region of the above-described infarct, including akinesis of the apical anterior wall.4. Small bilateral pleural effusions. Question of interstitial pulmonary edema.Findings discussed with Dr. Nicole.SRAVAN/Coleen on ID: [id number] by: LESLIE MABRY on MonSep 18, 2017 2:50:27 PM ESTTranscribed by: LISS GIBSON on MonSep 18, 2017 3:15:42 PM ESTFinalized by: LESLIE MABRY on MonSep 18, 2017 8:06:56 PM EST [facility] Comment on above: Order Comment: DX:I2 5.5, CALLER HUBER AND OFFICE TO FAX RXReason for exam?:Ischemic cardiomyopathyInjury/Trauma or Illness?:Illness/OtherHow long have you had these symptoms (acute/chronic)?:ChronicType of Exam?:InitialAdditional signs and symptoms?:SHORTNESS OF BREATH MR Cardiac Morphology With A nd Without Contraston 09-18-2017 MR Cardiac Morphology With And Without Contrast 1. Large region of ischemic scar involving the LAD distribution, predominantly in the mid anterior and mid anteroseptal [place] and in the apical anterior wall. Most of the infarct appears moderate to severe, involving greater than 50% of the myocardial thickness in portions, and there is a region of severe transmural infarct involving the apical anterior wall. 2. Linear intramyocardial enhancement in the mid septum is contiguous in portions with the subendocardial enhancement described above and is favored to represent an unusual pattern of ischemic scar rather than nonischemic etiology. Small linear focus of apparent enhancement in the inferoseptal wall is suspected to be artifactual. 3. Dilated cardiomyopathy with estimated left ventricular ejection fraction of 25%. Probable mild mitral regurgitation. There are multiple regions of hypokinesis, with the most severe hypokinesis in the region of the above-described infarct, including akinesis of the apical anterior wall. 4. Small bilateral pleural effusions. Question of interstitial pulmonary edema. Findings discussed with Dr. Nicole. SRAVAN/arcenio Workstation ID: [id number] Invalid Interpretation Code [facility] MR Cardiac Morphology With And Without Contrast EXAMINATION: MR CARDIAC MORPHOLOGY WITH AND WITHOUT CONTRAST HISTORY: ORDERING SYSTEM PROVIDED HISTORY: Ischemic cardiomyopathy, TECHNOLOGIST PROVIDED HISTORY: Reason for exam: Ischemic cardiomyopathy Illness/Other Encounter Type: Initial Additional signs and symptoms: SHORTNESS OF BREATH ORDERING SYSTEM PROVIDED DIAGNOSIS CODES: I25.5 Ischemic cardiomyopathy Ischemic cardiomyopathy. COMPARISON: None available. TECHNIQUE: Cardiac MRI was performed using 3-plane localizing SSFP images, multiplanar SSFP cine images, short-axis double-inversion recovery and triple-inversion recovery images, pre- and postcontrast 1st pass perfusion images, as well as delayed postcontrast myocardial-suppressed inversion recovery images. Patient received 40 mL Dotarem IV. FINDINGS: The heart is enlarged. The left ventricular end diastolic cavitary diameter on 4-chamber cine images is 6.1 cm. Mild mitral regurgitation is suggested. There is marked hypokinesis of the mid anterior wall and anteroseptal wall as well as moderate hypokinesis of the other midventricular segments. There is akinesis of the apical anterior wall and [id number] hypokinesis of the other apical segments. On delayed postcontrast images, there is limited evaluation due to artifact. In the mid anterior and anteroseptal [place] and in the apical anterior wall there is a large region of abnormal enhancement compatible with ischemic scar. This is moderate to severe, involving greater than 50% of the myocardial thickness in the mid anterior wall with probable transmural infarct involving the apical anterior wall for example on series 41. There is also extension of transmural infarct into a portion of the apical septal wall, and there is near transmural involvement of the mid anteroseptal wall in portions. There is a linear region of intramyocardial enhancement which is not subendocardial in the mid septal wall, but this appears contiguous with the above-described subendocardial infarct and may represent an unusual pattern of ischemic scar. There is also a small region of abnormal enhancement in the mid inferoseptal wall which may be artifactual, as there is artifact in this region on other sequences. A focus of ischemic scar cannot be excluded at this site, however. Based on endocardial contours, the left ventricular ejection fraction is estimated at 25% with an end-diastolic volume of 256 mL (normal 77-195), and systolic volume of 194 mL (normal 19-72), and stroke volume 62 mL (normal 51-133). There are small bilateral pleural effusions. There is minimal pericardial fluid which is within physiologic limits. Signal in the pulmonary interstitium could represent mild interstitial pulmonary edema. Invalid Interpretation Code [employer] MR Cardiac Morphology With And Without Contrast Interface, Rad In Jeanne Fengq - 09/18/2017 8:09 PM EST EXAMINATION: MR CARDIAC MORPHOLOGY WITH AND WITHOUT CONTRAST HISTORY: ORDERING SYSTEM PROVIDED HISTORY: Ischemic cardiomyopathy, TECHNOLOGIST PROVIDED HISTORY: Reason for exam: Ischemic cardiomyopathy Illness/Other Encounter Type: Initial Additional signs and symptoms: SHORTNESS OF BREATH ORDERING SYSTEM PROVIDED DIAGNOSIS CODES: I25.5 Ischemic cardiomyopathy Ischemic cardiomyopathy. COMPARISON: None available. TECHNIQUE: Cardiac MRI was performed using 3-plane localizing SSFP images, multiplanar SSFP cine images, short-axis double-inversion recovery and triple-inversion recovery images, pre- and postcontrast 1st pass perfusion images, as well as delayed postcontrast myocardial-suppressed inversion recovery images. Patient received 40 mL Dotarem IV. FINDINGS: The heart is enlarged. The left ventricular end diastolic cavitary diameter on 4-chamber cine images is 6.1 cm. Mild mitral regurgitation is suggested. There is marked hypokinesis of the mid anterior wall and anteroseptal wall as well as moderate hypokinesis of the other midventricular segments. There is akinesis of the apical anterior wall and [id number] hypokinesis of the other apical segments. On delayed postcontrast images, there is limited evaluation due to artifact. In the mid anterior and anteroseptal [place] and in the apical anterior wall there is a large region of abnormal enhancement compatible with ischemic scar. This is moderate to severe, involving greater than 50% of the myocardial thickness in the mid anterior wall with probable transmural infarct involving the apical anterior wall for example on series 41. There is also extension of transmural infarct into a portion of the apical septal wall, and there is near transmural involvement of the mid anteroseptal wall in portions. There is a linear region of intramyocardial enhancement which is not subendocardial in the mid septal wall, but this appears contiguous with the above-described subendocardial infarct and may represent an unusual pattern of ischemic scar. There is also a small region of abnormal enhancement in the mid inferoseptal wall which may be artifactual, as there is artifact in this region on other sequences. A focus of ischemic scar cannot be excluded at this site, however. Based on endocardial contours, the left ventricular ejection fraction is estimated at 25% with an end-diastolic volume of 256 mL (normal 77-195), and systolic volume of 194 mL (normal 19-72), and stroke volume 62 mL (normal 51-133). There are small bilateral pleural effusions. There is minimal pericardial fluid which is within physiologic limits. Signal in the pulmonary interstitium could represent mild interstitial pulmonary edema. IMPRESSION: 1. Large region of ischemic scar involving the LAD distribution, predominantly in the mid anterior and mid anteroseptal [place] and in the apical anterior wall. Most of the infarct appears moderate to severe, involving greater than 50% of the myocardial thickness in portions, and there is a region of severe transmural infarct involving the apical anterior wall. 2. Linear intramyocardial enhancement in the mid septum is contiguous in portions with the subendocardial enhancement described above and is favored to represent an unusual pattern of ischemic scar rather than nonischemic etiology. Small linear focus of apparent enhancement in the inferoseptal wall is suspected to be artifactual. 3. Dilated cardiomyopathy with estimated left ventricular ejection fraction of 25%. Probable mild mitral regurgitation. There are multiple regions of hypokinesis, with the most severe hypokinesis in the region of the above-described infarct, including akinesis of the apical anterior wall. 4. Small bilateral pleural effusions. Question of interstitial pulmonary edema. Findings discussed with Dr. Nicole. SRAVAN/arcenio Workstation ID: [id number] Invalid Interpretation Code [facility] P[facility] Creatinineon 09-18-2017 Creatinine 1.4 mg/dL High 0.5 - 1.3 mg/dL [facility] Interpretation and review of laboratory results Abnormal Invalid Interpretation Code [facility] Glucose, POCon 09-06-2017 Glucose mass conc 95 mg/dL Normal 70-105 [facility] Comment on above: Performed By: #### G LUX ####Unless otherwise noted, all testing performed by [facility] [address] [address].[place], [place] [id number]: [id number] Director: Mando Chiu M.D. Operation-Procedureon 2017 Operation-Procedure [place] [address], [place] [address]STVSBARAK [facility] [id number] 1957DATEOPERATIVE REPORT / PROCEDURE NOTESURGEON AYDE NICOLE, [facility]EDCounts include [facility] at the [facility] heart catheterization, Haroon technique.INDICATIONMr. Foster is a pleasant 61-year-old gentleman who has a severecardiomyopathy EF 25%. Developed increasing chest pain and shortness ofbreath. A cardiac stress test was markedly abnormal with a large anteriorapical scar with an EF of 15-20%. We decided to proceed to catheterization todefine his anatomy.PROCEDURE IN DETAILPrepped and draped in the usual manner for catheterization into the rightfemoral artery. Using micropuncture technique, I cannulated the right femoralartery and through this placed a 6-Turkmen sheath. I then placed a Judkinsleft diagnostic catheter. I did multiple injections of the left coronary.I then exchanged over a wire and placed a Haroon right coronary catheter anddid 1 injection of the right coronary.I crossed the aortic valve with a pigtail and did a hand injection of the leftventricle. We closed with an Angio-Seal. Left Catheterization Lab in goodcondition. No complications.PRESSURESL eft ventricular pressure 150/12. Aortic pressure 150/70.DESCRIPTION1. Right coronary artery: The right coronary artery is small, nondominant.It is unremarkable.2. Left coronary artery: The left main trunk has diffuse disease of 50-60%in its proximal portion. There was then a stent in the LAD. There is adiagonal that arises from within the stent. This is a small to moderate-sized diagonal and has severe 90% disease in its ostium. The LAD itselfis occluded just beyond the origin of this diagonal. There was somecollaterals, although quite limited.3. Left ventricle vessel has severe and diastolic and systolic.enlargement. There is severe LV dysfunction with ejection fraction of25%.IMPRESSION1. Severe carotid artery disease.2. Occluded left anterior descending just beyond a previous stent.3. 95% disease in a small to moderate diagonal.4. 40% disease in a very large circumflex.5. Unremarkable very small nondominant right coronary artery.6. Severe left ventricular dysfunction, ejection fraction 25%.DISCUSSIONThis patient has occluded large LAD. There is a small to moderate sizediagonal which arises from before the occlusion. However I would not proceedwith angioplasty of this diagonal at this time. His Cardiolite stress testdid not show any significant ischemia, but rather large scar. Therefore Iwould try full medical therapy including cardiac rehab.He will need an ICD, as he does have a long-term cardiomyopathy EF of 25%. Wewill use guideline directed therapy .AYDE NICOLE, MDD 09/06/2017 12:48 [id number] 09/06/2017 13:50 GSV/MODLcc: Jeff Cerda MDElectronically Signed By Ayde Nicole M.D. on 13 Sep 2017 12:43:56 GMT Normal [facility] Vital Signs Date Time Vital Sign Value Performing Clinician Alix mosley 07-12-2023 11:18-0500 Body height 180.3 cm Carolina Barger MD Work Phone: [facility] 07-12-2023 11:18-0500 Body weight 103.42 kg Carolina Barger MD Work Phone: [facility] 07-12-2023 11:18-0500 Diastolic blood pressure 78 mm[Hg] Carolina Barger MD Work Phone: [facility] 07-12-2023 11:18-0500 Heart rate 64 /min Carolina Barger MD Work Phone: [facility] 07-12-2023 11:18-0500 Respiratory rate 15 /min Carolina Barger MD Work Phone: [facility] 07-12-2023 11:18-0500 SaO2% (BldA) [Mass fraction] 98 % Carolina Barger MD Work Phone: [facility] 07-12-2023 11:18-0500 Systolic blood pressure 109 mm[Hg] Carolina Barger MD Work Phone: [facility] 06-27-2023 10:10-0500 Body height 180.3 cm Yannick Zuñiga PA-C Work Phone: [facility] 06-27-2023 10:10-0500 Body weight 104.33 kg Yannick Matejka PA-C Work Phone: [facility] 06-27-2023 10:10-0500 Diastolic blood pressure 57 mm[Hg] Yannick Matejka PA-C Work Phone: [facility] 06-27-2023 10:10-0500 Heart rate 81 /min Yannick Matejka PA-C Work Phone: [facility] 06-27-2023 10:10-0500 SaO2% (BldA) [Mass fraction] 100 % Yannick Matejka PA-C Work Phone: [facility] 06-27-2023 10:10-0500 Systolic blood pressure 102 mm[Hg] Yannick Matejka PA-C Work Phone: [facility] 06-16-2023 10:41-0500 Body height 180.3 cm Anamaria Laffey [employer] Work Phone: [facility] 06-16-2023 10:41-0500 Body weight 103.87 kg Anamaria Laffey [employer] Work Phone: [facility] 06-16-2023 10:41-0500 Diastolic blood pressure 74 mm[Hg] Anamaria Laffey [employer] Work Phone: [facility] 06-16-2023 10:41-0500 Heart rate 51 /min Anamaria Laffey [employer] Work Phone: [facility] 06-16-2023 10:41-0500 SaO2% (BldA) [Mass fraction] 99 % Anamaria Laffey [employer] Work Phone: [facility] 06-16-2023 10:41-0500 Systolic blood pressure 112 mm[Hg] Anamaria Laffey [employer] Work Phone: [facility] 04-26-2023 10:12-0400 Body height 180.3 cm Yannick Matejka PA-C Work Phone: [facility] 04-26-2023 10:12-0400 Body weight 103.87 kg Yannick Sala PA-C Work Phone: [facility] 04-26-2023 10:12-0400 Diastolic blood pressure 71 mm[Hg] Yannick Danieljka PA-C Work Phone: [facility] 04-26-2023 10:12-0400 Heart rate 84 /min Yannick Danieljka PA-C Work Phone: [facility] 04-26-2023 10:12-0400 SaO2% (BldA) [Mass fraction] 100 % Yannick Sala PA-C Work Phone: [facility] 04-26-2023 10:12-0400 Systolic blood pressure 122 mm[Hg] Yannick Sala PA-C Work Phone: [facility] 01-04-2023 07:59-0400 Body mass index (BMI) [Ratio] 33.14 kg/m2 Rogerio Bergerck [facility] 01-04-2023 07:59-0400 Body weight 107.78 kg [facility] 01-04-2023 07:59-0400 Diastolic blood pressure 78 mm[Hg] Rogerio Grbuer [facility] 01-04-2023 07:59-0400 Heart rate 80 /min Rogerio Gruber [facility] 01-04-2023 07:59-0400 Systolic blood pressure 125 mm[Hg] Rogerio Gruber [facility] 11-23-2022 07:53-0400 Body mass index (BMI) [Ratio] 33.22 kg/m2 Rogerio Gruber [facility] 11-23-2022 07:53-0400 Body weight 108.05 kg Rogerio Gruber [facility] 11-23-2022 07:53-0400 Diastolic blood pressure 87 mm[Hg] Rogerio Gruber [facility] 11-23-2022 07:53-0400 Heart rate 92 /min Rogerio Gruber RP [facility] 11-23-2022 07:53-0400 Systolic blood pressure 123 mm[Hg] Rogerio Gruber [facility] 10-26-2022 07:57-0400 Body mass index (BMI) [Ratio] 33.36 kg/m2 Rogerio Gruber RP [facility] 10-26-2022 07:57-0400 Body weight 108.5 kg Rogerio Gruber RP [facility] 10-26-2022 07:57-0400 Diastolic blood pressure 63 mm[Hg] Rogerio Gruber RP [facility] 10-26-2022 07:57-0400 Heart rate 80 /min Rogerio Gruber RPH [facility] 10-26-2022 07:57-0400 Systolic blood pressure 122 mm[Hg] [facility] 09-21-2022 07:57-0500 Body mass index (BMI) [Ratio] 33.05 kg/m2 [facility] 09-21-2022 07:57-0500 Body weight 107.5 kg Rogerio Gruber RP [facility] 09-21-2022 07:57-0500 Diastolic blood pressure 77 mm[Hg] [facility] 09-21-2022 07:57-0500 Heart rate 78 /min Rogerio Gruber RP [facility] 09-21-2022 07:57-0500 Systolic blood pressure 111 mm[Hg] Rogerio Gruber RP [facility] 08-26-2022 15:33-0500 Diastolic blood pressure 81 mm[Hg] Shahab Buckley MD Work Phone: [facility] 08-26-2022 15:33-0500 Heart rate 80 /min Shahab Buckley MD Work Phone: [facility] 08-26-2022 15:33-0500 Systolic blood pressure 131 mm[Hg] Shahab Buckley MD Work Phone: [facility] 08-26-2022 15:26-0500 Body height 180.3 cm Shahab Buckley MD Work Phone: [facility] 08-26-2022 15:26-0500 Body mass index (BMI) [Ratio] 33.05 kg/m2 Shahab Buckley MD Work Phone: [facility] 08-26-2022 15:26-0500 Body weight 107.5 kg Shahab Buckley MD Work Phone: [facility] 08-24-2022 08:02-0500 Body mass index (BMI) [Ratio] 34.59 kg/m2 Rogerio Allyn [facility] 08-24-2022 08:02-0500 Body weight 112.49 kg Rogerio Allyn [facility] 08-24-2022 08:02-0500 Diastolic blood pressure 61 mm[Hg] Rogerio Gruber [facility] 08-24-2022 08:02-0500 Heart rate 37 /min Rogerio Gruber [facility] 08-24-2022 08:02-0500 Systolic blood pressure 121 mm[Hg] Rogerio Gruber [facility] 07-27-2022 07:58-0500 Body mass index (BMI) [Ratio] 32.78 kg/m2 Rogerio Gruber [facility] 07-27-2022 07:58-0500 Body weight 106.59 kg Rogerio Gruber [facility] 07-27-2022 07:58-0500 Diastolic blood pressure 66 mm[Hg] Rogerio Gruber [facility] 07-27-2022 07:58-0500 Heart rate 60 /min Rogerio Gruber [facility] 07-27-2022 07:58-0500 Systolic blood pressure 122 mm[Hg] Rogerio Gruber [facility] 06-01-2022 08:13-0400 Body mass index (BMI) [Ratio] 32.78 kg/m2 Rogerio Allyn [facility] 06-01-2022 08:13-0400 Body weight 106.59 kg Rogerio Gruber [facility] 06-01-2022 08:13-0400 Diastolic blood pressure 64 mm[Hg] Rogerio Gruber [facility] 06-01-2022 08:13-0400 Heart rate 92 /min Rogerio Gruber [facility] 06-01-2022 08:13-0400 Systolic blood pressure 123 mm[Hg] Rogerio Gruber [facility] 04-27-2022 08:00-0400 Body mass index (BMI) [Ratio] 33.05 kg/m2 Rogerio Gruber [facility] 04-27-2022 08:00-0400 Body weight 107.5 kg Rogerio Gruber RP [facility] 04-27-2022 08:00-0400 Diastolic blood pressure 63 mm[Hg] Rogerio Gruber [facility] 04-27-2022 08:00-0400 Heart rate 97 /min Rogerio Gruber [facility] 04-27-2022 08:00-0400 Systolic blood pressure 122 mm[Hg] Rogerio Gruber [facility] 03-30-2022 07:52-0400 Body mass index (BMI) [Ratio] 33.28 kg/m2 Rogerio Gruber [facility] 03-30-2022 07:52-0400 Body weight 108.23 kg Rogerio Gruber [facility] 03-30-2022 07:52-0400 Diastolic blood pressure 71 mm[Hg] Rogerio Gruber [facility] 03-30-2022 07:52-0400 Heart rate 60 /min Rogerio Gruber [facility] 03-30-2022 07:52-0400 Systolic blood pressure 127 mm[Hg] Rogerio Gr[facility] [employer] [facility] 03-16-2022 08:12-0400 Body mass index (BMI) [Ratio] 33.17 kg/m2 Rogerio Gruber [facility] 03-16-2022 08:12-0400 Body weight 107.86 kg Rogerio Gruber [facility] [employer] [facility] 03-16-2022 08:12-0400 Diastolic blood pressure 84 mm[Hg] Rogerio Gruber [facility] 03-16-2022 08:12-0400 Heart rate 73 /min Rogerio Gruber RP [facility] 03-16-2022 08:12-0400 Systolic blood pressure 141 mm[Hg] Rogerio Gruber [facility] [employer] [facility] 03-02-2022 07:53-0400 Body mass index (BMI) [Ratio] 32.78 kg/m2 Rogerio Gruber [facility] [employer] [facility] 03-02-2022 07:53-0400 Body weight 106.59 kg Rogerio Gruber [facility] 03-02-2022 07:53-0400 Diastolic blood pressure 70 mm[Hg] Rogerio Gruber [facility] 03-02-2022 07:53-0400 Heart rate 67 /min Rogerio Gruber [facility] 03-02-2022 07:53-0400 Systolic blood pressure 114 mm[Hg] Rogerio Gruber [facility] 02-22-2022 08:25-0400 Body mass index (BMI) [Ratio] 32.27 kg/m2 Marion Bell [facility] [employer] [facility] 02-22-2022 08:25-0400 Body weight 104.96 kg Marion Bell [facility] [employer] [facility] 02-22-2022 08:25-0400 Diastolic blood pressure 67 mm[Hg] Marion Bell [facility] [employer] [facility] 02-22-2022 08:25-0400 Heart rate 68 /min Marion Bell [facility] [employer] [facility] 02-22-2022 08:25-0400 Systolic blood pressure 122 mm[Hg] Marion Bell [facility] [facility] 02-11-2022 15:49-0400 Diastolic blood pressure 78 mm[Hg] Shahab Buckley MD Work Phone: [facility] 02-11-2022 15:49-0400 Heart rate 83 /min Shahab Buckley MD Work Phone: [facility] 02-11-2022 15:49-0400 Systolic blood pressure 136 mm[Hg] Shahab Buckley MD Work Phone: [facility] 02-11-2022 15:42-0400 Body height 180.3 cm Shahab Buckley MD Work Phone: [facility] 02-11-2022 15:42-0400 Body mass index (BMI) [Ratio] 32.5 kg/m2 Shahab Buckley MD Work Phone: [facility] 02-11-2022 15:42-0400 Body weight 105.69 kg Shahab Buckley MD Work Phone: [facility] 02-03-2022 07:43-0400 Body mass index (BMI) [Ratio] 31.8 kg/m2 Raffy Richardson RP [facility] 02-03-2022 07:43-0400 Body weight 103.42 kg Raffy Richardson RP [facility] 02-03-2022 07:43-0400 Diastolic blood pressure 64 mm[Hg] Raffy Richardson [facility] 02-03-2022 07:43-0400 Heart rate 76 /min Raffy Richardson RP [facility] 02-03-2022 07:43-0400 Systolic blood pressure 113 mm[Hg] Raffy Richardson [facility] 01-27-2022 08:19-0400 Body mass index (BMI) [Ratio] 31.97 kg/m2 Raffy Richardson [facility] 01-27-2022 08:19-0400 Body weight 103.96 kg Raffy Richardson RP [facility] 01-27-2022 08:19-0400 Diastolic blood pressure 70 mm[Hg] Raffy Richardson [facility] 01-27-2022 08:19-0400 Heart rate 77 /min Raffy Richardson RP [facility] 01-27-2022 08:19-0400 Systolic blood pressure 108 mm[Hg] Raffy Richardson [facility] 01-20-2022 07:52-0400 Body mass index (BMI) [Ratio] 32.33 kg/m2 Raffy Richardson [facility] 01-20-2022 07:52-0400 Body weight 105.14 kg Raffy Richardson RP [facility] 01-20-2022 07:52-0400 Diastolic blood pressure 53 mm[Hg] Raffy Richardson RP [facility] 01-20-2022 07:52-0400 Heart rate 41 /min Raffy Richardson [facility] 01-20-2022 07:52-0400 Systolic blood pressure 105 mm[Hg] Raffy Richardson [facility] 01-13-2022 07:54-0400 Body mass index (BMI) [Ratio] 33.28 kg/m2 Raffy Richardson [facility] 01-13-2022 07:54-0400 Body weight 108.23 kg Raffy Richardson [facility] 01-13-2022 07:54-0400 Diastolic blood pressure 56 mm[Hg] Raffy Richardson [facility] 01-13-2022 07:54-0400 Heart rate 72 /min Raffy Richardson [facility] 01-13-2022 07:54-0400 Systolic blood pressure 100 mm[Hg] Raffy Richardson [facility] 01-07-2022 20:05-0400 Body mass index (BMI) [Ratio] 33.19 kg/m2 Lonnie Hart MD Work Phone[facility] 01-07-2022 20:05-0400 Body temperature 97.7 [degF] Lonnie Hart MD Work Phone[facility] 01-07-2022 20:05-0400 Body weight 107.96 kg Lonnie Hart MD Work Phone[facility] 01-07-2022 20:05-0400 Diastolic blood pressure 96 mm[Hg] Lonnie Hart MD Work Phone[facility] 01-07-2022 20:05-0400 Heart rate 101 /min Lonnie Hart MD Work Phone: [facility] 01-07-2022 20:05-0400 Respiratory rate 18 /min Lonnie Hart MD Work Phone[facility] 01-07-2022 20:05-0400 SaO2% (BldA) [Mass fraction] 98 % Lonnie Hart MD Work Phone: [facility] 01-07-2022 20:05-0400 Systolic blood pressure 151 mm[Hg] Lonnie Hart MD Work Phone: [facility] 01-06-2022 07:52-0400 Body mass index (BMI) [Ratio] 33.25 kg/m2 Raffy Richardson [facility] 01-06-2022 07:52-0400 Body weight 108.14 kg Raffy Dylan [facility] 01-06-2022 07:52-0400 Diastolic blood pressure 67 mm[Hg] Raffy Richardson [facility] 01-06-2022 07:52-0400 Heart rate 41 /min Rafyf Richardson [facility] 01-06-2022 07:52-0400 Systolic blood pressure 111 mm[Hg] Raffy Richardson [facility] 12-29-2021 08:00-0400 Body temperature 98.01 [degF] Shahab Buckley MD Work Phone: [facility] 12-29-2021 08:00-0400 Diastolic blood pressure 74 mm[Hg] Shahab Buckley MD Work Phone: [facility] 12-29-2021 08:00-0400 Heart rate 78 /min Shahab Buckley MD Work Phone: [facility] 12-29-2021 08:00-0400 Respiratory rate 14 /min Shahab Buckley MD Work Phone: [facility] 12-29-2021 08:00-0400 SaO2% (BldA) [Mass fraction] 96 % Shahab Buckley MD Work Phone: [facility] 12-29-2021 08:00-0400 Systolic blood pressure 122 mm[Hg] Shahab Buckley MD Work Phone: [facility] 12-28-2021 11:00-0400 Body height 180.3 cm Shahab Buckley MD Work Phone: [facility] 12-28-2021 11:00-0400 Body mass index (BMI) [Ratio] 33.39 kg/m2 Shahab Buckley MD Work Phone: [facility] 12-28-2021 11:00-0400 Body weight 108.6 kg Shahab Buckley MD Work Phone: [facility] 12-22-2021 07:39-0400 Body mass index (BMI) [Ratio] 34.78 kg/m2 [facility] 12-22-2021 07:39-0400 Body weight 113.13 kg [facility] 12-22-2021 07:39-0400 Diastolic blood pressure 68 mm[Hg] [facility] 12-22-2021 07:39-0400 Heart rate 77 /min [facility] 12-22-2021 07:39-0400 Systolic blood pressure 111 mm[Hg] [facility] 12-09-2021 07:41-0400 Body mass index (BMI) [Ratio] 35.37 kg/m2 [facility] 12-09-2021 07:41-0400 Body weight 115.03 kg [facility] 12-09-2021 07:41-0400 Diastolic blood pressure 64 mm[Hg] [facility] 12-09-2021 07:41-0400 Heart rate 71 /min [facility] 12-09-2021 07:41-0400 Systolic blood pressure 115 mm[Hg] [facility] 12-08-2021 15:59-0400 Diastolic blood pressure 87 mm[Hg] Shahab Buckley MD Work Phone: [facility] 12-08-2021 15:59-0400 Heart rate 98 /min Shahab Buckley MD Work Phone: [facility] 12-08-2021 15:59-0400 Systolic blood pressure 132 mm[Hg] Shahab Buckley MD Work Phone: [facility] 12-08-2021 15:52-0400 Body height 180.3 cm Shahab Buckley MD Work Phone: [facility] 12-08-2021 15:52-0400 Body mass index (BMI) [Ratio] 35.43 kg/m2 Shahab Buckley MD Work Phone: [facility] 12-08-2021 15:52-0400 Body weight 115.21 kg Shahab Buckley MD Work Phone: [facility] 11-16-2021 08:05-0400 Body mass index (BMI) [Ratio] 34.76 kg/m2 Raffy [facility] [employer] 11-16-2021 08:05-0400 Body weight 113.04 kg Raffy [facility] [employer] 11-16-2021 08:05-0400 Diastolic blood pressure 66 mm[Hg] Raffy [facility] [employer] 11-16-2021 08:05-0400 Heart rate 78 /min Raffy [facility] [employer] 11-16-2021 08:05-0400 Systolic blood pressure 128 mm[Hg] Raffy [facility] [employer] 08-10-2021 08:03-0500 Body mass index (BMI) [Ratio] 34.06 kg/m2 Raffy [facility] [employer] 08-10-2021 08:03-0500 Body weight 110.77 kg Raffy [facility] [employer] 08-10-2021 08:03-0500 Diastolic blood pressure 67 mm[Hg] Raffy [facility] [employer] 08-10-2021 08:03-0500 Heart rate 45 /min Raffy [facility] [employer] 08-10-2021 08:03-0500 Systolic blood pressure 127 mm[Hg] Raffy [facility] [employer] 06-07-2021 07:41-0400 Body mass index (BMI) [Ratio] 34.92 kg/m2 Raffy [facility] [employer] Work Phone: 06-07-2021 07:41-0400 Body weight 113.58 kg [facility] [employer] Work Phone: 06-07-2021 07:41-0400 Diastolic blood pressure 62 mm[Hg] [facility] [employer] Work Phone: 06-07-2021 07:41-0400 Heart rate 72 /min Raffy [facility] [employer] Work Phone: 06-07-2021 07:41-0400 Systolic blood pressure 114 mm[Hg] Raffy Richardson [facility] Work Phone: 04-23-2021 07:40-0400 Body mass index (BMI) [Ratio] 34.81 kg/m2 Raffy Richardson [facility] Work Phone: 04-23-2021 07:40-0400 Body weight 113.22 kg Raffy Richardson [facility] Work Phone: 04-23-2021 07:40-0400 Diastolic blood pressure 63 mm[Hg] Raffy Richardson [facility] Work Phone: 04-23-2021 07:40-0400 Heart rate 55 /min Raffy Richardson [facility] Work Phone: 04-23-2021 07:40-0400 Systolic blood pressure 124 mm[Hg] Raffy Richardson [facility] Work Phone: 03-01-2021 10:30-0400 Body mass index (BMI) [Ratio] 33.92 kg/m2 Lorri Carmen [facility] Work Phone: [facility] [employer] Work Phone: 03-01-2021 10:30-0400 Body weight 110.31 kg Lorri Carmen [facility] Work Phone: [facility] Work Phone: 03-01-2021 10:30-0400 Diastolic blood pressure 68 mm[Hg] Lorri Carmen [facility] Work Phone: [facility] Work Phone: 03-01-2021 10:30-0400 Heart rate 66 /min Lorri Carmen [facility] Work Phone: [facility] [employer] Work Phone: 03-01-2021 10:30-0400 Systolic blood pressure 128 mm[Hg] Lorri Carmen [facility] Work Phone: [employer] Work Phone: 12-29-2020 08:07-0400 Body mass index (BMI) [Ratio] 34.62 kg/m2 Raffy Richardson [facility] [employer] Phone: 12-29-2020 08:07-0400 Body weight 112.58 kg Raffy Richardson [facility] [employer] Work Phone: 12-29-2020 08:07-0400 Diastolic blood pressure 67 mm[Hg] Raffy Richardson [facility] [employer] Work Phone: 12-29-2020 08:07-0400 Heart rate 71 /min Raffy Richardson [facility] [employer] Work Phone: 12-29-2020 08:07-0400 Systolic blood pressure 122 mm[Hg] Raffy Richardson [facility] [employer] Work Phone: 11-23-2020 10:14-0400 Body temperature 96.8 [degF] Ayde Matthews [employer] Work Phone: [employer] Phone: 11-23-2020 10:14-0400 Diastolic blood pressure 93 mm[Hg] Ayde Matthews [employer] Phone: [employer] Phone: 11-23-2020 10:14-0400 Heart rate 84 /min Ayde Matthews [employer] Phone: [employer] Phone: 11-23-2020 10:14-0400 Respiratory rate 14 /min Ayde Matthews [employer] Phone: [employer] Phone: 11-23-2020 10:14-0400 SaO2% (BldA) [Mass fraction] 96 % Ayde Matthews [employer] Work Phone: [employer] Phone: 11-23-2020 10:14-0400 Systolic blood pressure 155 mm[Hg] Ayde Matthews [employer] Phone: [employer] Phone: 11-23-2020 06:16-0400 Body height 180.3 cm Ayde Matthews [employer] Phone: [employer] Phone: 11-23-2020 06:16-0400 Body mass index (BMI) [Ratio] 34.8 kg/m2 Ayde Matthews [employer] Phone: [employer] Phone: 11-23-2020 06:16-0400 Body weight 113.17 kg Ayde Matthews [employer] Phone: [employer] Phone: 11-17-2020 08:06-0400 BMI (Body Mass Index) 35.06 kg/m2 Raffy [employer] Phone: 11-17-2020 08:06-0400 Body weight 114.03 kg [employer] Phone: 11-17-2020 08:06-0400 BP Diastolic 59 mm[Hg] Raffy [employer] Phone: 11-17-2020 08:06-0400 BP Systolic 101 mm[Hg] Raffy [employer] Phone: 11-17-2020 08:06-0400 Pulse (Heart Rate) 71 /min Raffy [employer] Phone: 11-09-2020 13:12-0400 BMI (Body Mass Index) 34.31 kg/m2 [employer] [employer] Phone: 11-09-2020 13:12-0400 Body Temperature 96.8 [degF] [facility] [employer] Phone: 11-09-2020 13:12-0400 Body weight 111.58 kg [facility] [employer] Phone: 11-09-2020 13:12-0400 BP Diastolic 78 mm[Hg] [facility] [employer] Phone: 11-09-2020 13:12-0400 BP Systolic 120 mm[Hg] [facility] [employer] Phone: 11-09-2020 13:12-0400 Height 180.3 cm [facility] [employer] Phone: 11-09-2020 13:12-0400 Pulse (Heart Rate) 73 /min [facility] [employer] Phone: 11-09-2020 13:12-0400 Pulse Oximetry 100 % [facility] [employer] Phone: 11-09-2020 13:12-0400 Respiratory Rate 18 /min [facility] [employer] Phone: 05-14-2020 07:41-0400 Body Temperature 96.8 [degF] [facility] [place] 04-02-2020 07:36-0400 Body Temperature 97.2 [degF] [facility] [place] 02-20-2020 07:39-0400 Body Temperature 97.81 [degF] [facility] [place] 01-09-2020 07:46-0400 Body Temperature 97.11 [degF] Lorri [employer] [facility], [place] 10-17-2019 07:33-0400 BMI (Body Mass Index) 34.55 kg/m2 [facility] [place] 10-17-2019 07:33-0400 Body weight 112.31 [facility] [place] 10-17-2019 07:33-0400 BP Diastolic 75 mm[Hg] [facility] , [place] 10-17-2019 07:33-0400 BP Systolic 154 mm[Hg] [facility] , [place] 10-17-2019 07:33-0400 Pulse (Heart Rate) 70 /min Lorri Carmen [place], [place] 09-02-2019 11:31-0500 Body mass index (BMI) [Ratio] 33.14 kg/m2 Raffy Richardson [facility] [employer] Work Phone: 09-02-2019 11:31-0500 Body weight 107.78 kg [facility] Phone: 09-02-2019 11:31-0500 Diastolic blood pressure 57 mm[Hg] Raffy Richardson [facility] [employer] Work Phone: 09-02-2019 11:31-0500 Heart rate 77 /min Raffy Richardson [facility] [employer] Work Phone: 09-02-2019 11:31-0500 Systolic blood pressure 115 mm[Hg] [facility] Phone: 08-12-2019 14:48-0500 Diastolic blood pressure 84 mm[Hg] Eloina Pat MD Work Phone: [employer] Work Phone: 08-12-2019 14:48-0500 Heart rate 77 /min Eloina Pat MD Work Phone: [employer] Work Phone: 08-12-2019 14:48-0500 Respiratory rate 21 /min Eloina Pat MD Work Phone: [employer] Work Phone: 08-12-2019 14:48-0500 SaO2% (BldA) [Mass fraction] 96 % Eloina Pat MD Work Phone: [employer] Work Phone: 08-12-2019 14:48-0500 Systolic blood pressure 151 mm[Hg] Eloina Pat MD Work Phone: [employer] Work Phone: 08-12-2019 11:35-0500 Body temperature 98.2 [degF] Eloina Pat MD Work Phone: [employer] Work Phone: 08-12-2019 10:51-0500 Body height 180.3 cm Eloina Pat MD Work Phone: [employer] Work Phone: 08-12-2019 10:51-0500 Body mass index (BMI) [Ratio] 30.68 kg/m2 Eloina Pat MD Work Phone: [employer] Work Phone: 08-12-2019 10:51-0500 Body weight 99.79 kg Eloina Pat MD [facility] Work Phone: 06-03-2019 12:15-0400 Body weight 111.22 kg [place], [place] 06-03-2019 12:15-0400 BP Diastolic 72 mm[Hg] [place] 06-03-2019 12:15-0400 BP Systolic 119 mm[Hg] [place] 06-03-2019 12:15-0400 Pulse (Heart Rate) 68 /min [facility], [place] 04-11-2019 07:31-0400 Body weight 109.59 kg [facility] , [place] 04-11-2019 07:31-0400 BP Diastolic 86 mm[Hg] [facility] [place] 04-11-2019 07:31-0400 BP Systolic 137 mm[Hg] [facility] [place] 04-11-2019 07:31-0400 Pulse (Heart Rate) 77 /min [place], [place] 09-18-2017 07:08-0500 BMI (Body Mass Index) 33.47 kg/m2 Ayde Nicole [facility] Work Phone: 09-18-2017 07:08-0500 Height 180.3 cm Ayde Nicole [facility] Work Phone: 09-18-2017 07:08-0500 Weight 108.86 kg Ayde Nicole [facility] Work Phone: Encounters Encounter Date Encounter Type Care Provider Facility Start: 07-12-2023 End: 07-13-2023 ambulatory JEFF CERDA Facility:[facility] Start: 07-12-2023 End: 07-12-2023 Patient encounter procedure Carolina Bargre MD Work Phone: Cardiology Comment on above: Chronic systolic HF (heart failure) (HCC) (Primary Dx); Coronary artery disease involving [place] coronary artery of [place] heart without angina pectoris; Atrial fibrillation, chronic (HCC) Start: 07-04-2023 Follow-up encounter Chandni Vitale MD Work Phone: [facility] Start: 07-04-2023 ICD Remote F/U Chandni Abbott i, MD Work Phone: [facility] Start: 06-27-2023 Nursing evaluation o f patient and report Research Coordinator Work Phone: Cardiology Comment on above: Research IRB [id number] [employer] (Primary Dx) Start: 06-27-2023 Patient entered into trial Research Coordinator Work Phone: [facility] Start: 06-27-2023 End: 06-27-2023 ambulatory YANNICK ZUÑIGA Facility:[facility] Start: 06-27-2023 End: 06-27-2023 Patient encounter procedure Yannick Zuñiga PA-C Work Phone: Cardiology Comment on above: Chronic systolic HF (heart failure) (HCC) (Primary Dx); Paroxysmal atrial fibrillation (HCC); Cardiomyopathy, nonischemic (HCC); Frequent PVCs Start: 06-16-2023 Follow-up encounter Chandni Vitale MD Work Phone: [facility] Start: 06-16-2023 End: 06-16-2023 Patient encounter procedure Chandni Vitale MD Work Phone: [facility] Comment on above: Paroxysmal atrial fi brillation (HCC) (Primary Dx); Pre-op exam Start: 06-16-2023 Encounter for other preprocedural examination ANAMARIA TA [facility] Start: 06-16-2023 End: 06-17-2023 ambulatory CHANDNI VITALE Facility:[facility] Start: 06-16-2023 End: 06-16-2023 Preprocedural examination done Anamaria Ta [employer] CLASS WELDER Work Phone: [facility] Work Phone: Start: 06-15-2023 ambulatory Chandni Abbott i, MD Work Phone: Cardiology Comment on above: Patient Education (E PS-DCC) Start: 06-12-2023 Follow-up encounter Chandni Vitale MD Work Phone: [facility] Start: 06-12-2023 ICD Remote F/U Chandni Abbott i, MD Work Phone: [facility] Start: 06-07-2023 Telephone encounter [facility] olga Work Phone: Cardiology Start: 06-05-2023 Follow-up encounter Chandni Vitale MD Work Phone: [facility] Start: 06-05-2023 ICD Remote F/U Chandni Abbott i, MD Work Phone: [facility] Start: 05-24-2023 Telephone encounter Chandni Vitale MD Work Phone: Cardiology Comment on above: Future Appointment ( DCC) Start: 05-19-2023 Follow-up encounter Chandni Vitale MD Work Phone: [facility] Start: 05-19-2023 ICD Remote F/U Chandni Abbott i, MD Work Phone: [facility] Start: 05-16-2023 Telephone encounter Chandni Vitale MD Work Phone: Cardiology Start: 05-12-2023 Follow-up encounter Chandni Vitale MD Work Phone: [facility] Start: 05-12-2023 End: 05-12-2023 Orders Only Chandni Vitale MD Work Phone: Cardiology Start: 05-12-2023 Patient encounter procedure Chandni Vitale MD Work Phone: [facility] Start: 04-26-2023 End: 04-27-2023 ambulatory FRANCK TERRELL II Facility:[facility] Start: 04-26-2023 End: 04-26-2023 ambulatory [facility] Work Phone: Cardiology Comment on above: Event (14 days) Start: 04-26-2023 End: 04-26-2023 Patient encounter procedure Yannick Zuñiga PA-C Work Phone: Cardiology Comment on above: Chronic systolic HF (heart failure) (HCC) (Primary Dx); Dysuria; Frequent PVCs; Chronic combined systolic and diastolic congestive heart failure (HCC); Cardiomyopathy, nonischemic (HCC) Start: 04-19-2023 Telephone encounter Zeina Sanchez in RN NOC Comment on above: Follow Up Phone Call (RC all clear ) Start: 04-14-2023 ambulatory Mikael Henry [facility] Work Phone: [facility] Start: 04-14-2023 Telephone encounter Cain Higginbotham [employer] PHYSIOTHERAPIST NURSING A16 Comment on above: Follow Up Phone Call (Non-Urgent:Medication Concerns /) Post Dc Program Call - Needs Attn Transition Of Care ( TCM Pharmacy-Hospital discharge 04/13/23/); Heart Failure Start: 04-07-2023 Follow-up encounter Chandni Vitale MD Work Phone: [facility] Start: 04-07-2023 Patient encounter procedure Chandni Vitale MD Work Phone: [facility] Start: 04-03-2023 End: 04-05-2023 ambulatory CHETE XAVIER-NLIAM Facility:[facility] Start: 03-28-2023 Rx Change Shady little MD Work Phone: -[facility]-Anthony 250 DO Work Phone: Start: 03-24-2023 Follow-up encounter Chandni Vitale MD Work Phone: [facility] Start: 03-24-2023 Patient encounter procedure Chandni Vitale MD Work Phone: [facility] Start: 03-24-2023 End: 03-27-2023 ambulatory [facility] Facility:[facility] Start: 03-23-2023 End: 03-23-2023 ambulatory [facility] Facility:[facility] Start: 03-23-2023 End: 03-23-2023 ambulatory [facility] Facility:[facility] Start: 03-21-2023 Orders Only Venus Willoughby MD Work Phone: Cardiology Comment on above: Heart disease (Prima ry Dx) Start: 03-20-2023 End: 04-13-2023 Evaluation and management of inpatient CHETE XAVIER-NLIAM Facility:[facility] Start: 03-20-2023 End: 03-21-2023 ambulatory [facility] Start: 03-18-2023 ambulatory Facility:[id number] Start: 03-17-2023 ambulatory Facility:[id number] Start: 03-16-2023 ambulatory Facility:[id number] Start: 03-15-2023 ambulatory Facility:[id number] Start: 03-15-2023 End: 03-18-2023 Evaluation and management of inpatient Osiris Mischler Facility:[facility] Start: 03-14-2023 End: 03-15-2023 ambulatory [facility] Start: 03-07-2023 End: 03-08-2023 ambulatory [facility] Start: 02-23-2023 End: 02-24-2023 ambulatory [facility] Start: 02-20-2023 End: 02-23-2023 [facility] Start: 02-20-2023 End: 02-22-2023 Subsequent hospital visit by physician Phuong Weldon [address] [place] [address] Radiology Comment on above: 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; Coronary artery 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, unspecified vessel or lesion type; Hypertension, unspecified type; Vitamin D deficiency disease; Cardiomyopathy, unspecified type (HCC) Start: 02-15-2023 End: 02-16-2023 [facility] Start: 01-07-2023 Refill Shahab godfrey MD Work Phone: [facility] Comment on above: Medication Refill Start: 01-04-2023 End: 01-05-2023 [facility] Start: 01-04-2023 End: 01-04-2023 Subsequent hospital visit by physician Rogerio Gruber [facility] Medication Manangement Comment on above: LV (left ventricular ) 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 (Primary Dx); 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 Start: 12-29-2022 End: 12-30-2022 ambulatory GURWINDER Olu DIONNE Facility: Start: 11-23-2022 End: 11-24-2022 [facility] Start: 11-23-2022 End: 11-23-2022 Subsequent hospital visit by physician Rogerio Gruber [facility] Medication Manangement Comment on above: LV (left ventricular ) 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 (Primary Dx); retirement (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 Start: 10-26-2022 End: 10-27-2022 [facility] Start: 10-26-2022 End: 10-26-2022 Subsequent hospital visit by physician Rogerio Gruber [facility] Medication Manangement Comment on above: LV (left ventricular ) 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 (Primary Dx); 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 Start: 08-26-2022 End: 08-26-2022 Office outpatient visit 15 minutes Shahab Buckley MD Work Phone: [facility] Comment on above: Carotid stenosis, sy mptomatic w/o infarct, right (Primary Dx); Left carotid stenosis Start: 08-24-2022 End: 08-25-2022 [facility] Start: 08-24-2022 End: 08-24-2022 Subsequent hospital visit by physician Rogerio Gruber [facility] Comment on above: LV (left ventricular ) 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 (Primary Dx); 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 Start: 07-27-2022 End: 07-28-2022 [facility] Start: 07-27-2022 End: 07-27-2022 Subsequent hospital visit by physician Rogerio Gruber [facility] Comment on above: LV (left ventricular ) 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 (Primary Dx); 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 Start: 06-29-2022 End: 06-30-2022 [facility] Start: 06-01-2022 End: 06-02-2022 [facility] Start: 06-01-2022 End: 06-01-2022 Subsequent hospital visit by physician Rogerio Gruber [facility] Comment on above: LV (left ventricular ) 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 (Primary Dx); retirement (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 Start: 04-27-2022 End: 04-28-2022 [facility] Start: 04-27-2022 End: 04-27-2022 Subsequent hospital visit by physician Rogerio Gruber [facility] Comment on above: LV (left ventricular ) 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 (Primary Dx); retirement (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 Start: 03-30-2022 End: 03-31-2022 [facility] Start: 03-30-2022 End: 03-30-2022 Subsequent hospital visit by physician Rogerio Gruber [facility]ication [facility]angement Comment on above: LV (left ventricular ) 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 (Primary Dx); 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 Start: 03-16-2022 End: 03-16-2022 Subsequent hospital visit by physician Rogerio Gruber [facility]ication [facility]angement Comment on above: LV (left ventricular ) 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 (Primary Dx); retirement (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 Start: 03-02-2022 End: 03-02-2022 Subsequent hospital visit by physician Rogerio Gruber [facility] Medication [facility]angement Comment on above: LV (left ventricular ) 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 (Primary Dx); 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 Start: 02-22-2022 End: 02-24-2022 Subsequent hospital visit by physician Marion Bell [facility] Comment on above: 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; Coronary artery 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, unspecified vessel or lesion type; Hypertension, unspecified type; Vitamin D deficiency disease; Cardiomyopathy, unspecified type (HCC); SOB (shortness of breath) LV (left ventricular ) 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 (Primary Dx); retirement (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; Coronary artery 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, unspecified vessel or lesion type; Hypertension, unspecified type; Vitamin D deficiency disease; Cardiomyopathy, unspecified type (HCC); SOB (shortness of breath); Other specified diabetes mellitus without complication, with long-term current use of insulin (HCC) Coronary artery dise ase, unspecified vessel or lesion type, unspecified whether angina present, unspecified whether [place] or transplanted heart Start: 02-11-2022 End: 02-12-2022 ambulatory [facility] Start: 02-11-2022 End: 02-11-2022 Postop follow up visit related to original px Shahab Buckley MD Work Phone: [facility] Comment on above: Carotid stenosis, sy mptomatic w/o infarct, right (Primary Dx); Symptomatic stenosis of right carotid artery Start: 02-03-2022 End: 02-03-2022 Subsequent hospital visit by physician aRffy Richardson [facility] Comment on above: LV (left ventricular ) 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 (Primary Dx); retirement (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 Start: 01-27-2022 End: 01-29-2022 Subsequent hospital visit by physician Raffy Sparks Dylan [facility] Medication [facility]angement Comment on above: LV (left ventricular ) 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 (Primary Dx); 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 Start: 01-25-2022 Refill Angeles Samano RN [facility] Comment on above: Medication Refill Start: 01-20-2022 Refill Mary Jane delgado PA-C Work Phone: [facility] Comment on above: Medication Refill Start: 01-20-2022 End: 01-20-2022 Subsequent hospital visit by physician Raffy Sparks Dylan [facility] Comment on above: LV (left ventricular ) 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 (Primary Dx); retirement (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 Start: 01-13-2022 End: 01-13-2022 Subsequent hospital visit by physician Raffy Richardson [facility] Comment on above: LV (left ventricular ) 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 (Primary Dx); 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 Start: 01-08-2022 End: 01-10-2022 Subsequent hospital visit [facility] Comment on above: Left arm pain Start: 01-07-2022 End: 01-07-2022 Emergency department patient visit Lonnie Hart MD Work Phone: [facility] ED Comment on above: Left arm pain (Prima ry Dx) Start: 01-06-2022 End: 01-06-2022 Subsequent hospital visit by physician Raffy Richardson [facility] Comment on above: LV (left ventricular ) 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 (Primary Dx); retirement (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 Start: 12-28-2021 End: 12-29-2021 Evaluation and management of inpatient [facility] Start: 12-28-2021 End: 12-29-2021 Evaluation and management of inpatient Shahab Buckley MD Work Phone: [facility] Start: 12-22-2021 End: 12-22-2021 Subsequent hospital visit by physician Raffy Richardson [facility] Medication [facility]angement Comment on above: LV (left ventricular ) 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 (Primary Dx); retirement (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 Start: 12-18-2021 Documentation procedure Shahab Buckley MD Work Phone: [facility] Start: 12-14-2021 Admission to [facility] Shahab Buckley MD Work Phone: [facility] Comment on above: Symptomatic stenosis of right carotid artery (Primary Dx) Start: 12-09-2021 End: 12-09-2021 Subsequent hospital visit by physician Raffy Richardson [facility]ication [facility]angement Comment on above: LV (left ventricular ) 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 (Primary Dx); retirement (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 Start: 12-08-2021 End: 12-08-2021 ambulatory SHAHAB BUCKLEY [facility] Start: 12-08-2021 End: 12-08-2021 Office outpatient visit 25 minutes Shahab Buckley MD Work Phone: [facility] Comment on above: Symptomatic stenosis of right carotid artery Start: 12-06-2021 End: 12-07-2021 ambulatory SHAHAB BUCKLEY [facility] Start: 11-29-2021 Admission to [facility] Shahab Buckley MD Work Phone: [facility] Comment on above: Elevated serum creat inine (Primary Dx); Atherosclerosis of right carotid artery Start: 11-26-2021 End: 11-30-2021 ambulatory [facility] Start: 11-26-2021 End: 11-26-2021 ambulatory SHAHAB BUCKLEY [facility] Amb[facility] Start: 11-16-2021 End: 11-16-2021 [facility] Comment on above: LV (left ventricular ) 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 (Primary Dx); retirement (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 Start: 10-26-2021 End: 10-28-2021 [facility] Comment on above: Central artery occlu leslee of retina, left Start: 08-10-2021 End: 08-10-2021 Subsequent [facility] Comment on above: LV (left ventricular ) 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 (Primary Dx); retirement (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 Start: 06-07-2021 End: 06-07-2021 Subsequent hospital [facility] Comment on above: LV (left ventricular ) 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 (Primary Dx); retirement (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 Start: 04-23-2021 End: 04-23-2021 Subsequent hospital visit by [facility] Comment on above: LV (left ventricular ) 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 (Primary Dx); retirement (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 Start: 03-01-2021 End: 03-01-2021 Subsequent hospital visit by physician Lorri Carmen [facility] Comment on above: LV (left ventricular ) 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 (Primary Dx); 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 Start: 02-25-2021 End: 02-25-2021 Subsequent hospital visit by physician Jeff Cerda MD Work Phone: [facility] Comment on above: 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; Coronary artery 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, unspecified vessel or lesion type; Hypertension, unspecified type; Vitamin D deficiency disease Start: 12-29-2020 End: 12-29-2020 Subsequent hospital visit by [facility] Comment on above: LV (left ventricular ) 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 (Primary Dx); retirement (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 Start: 11-23-2020 End: 11-23-2020 ambulatory [facility] Start: 11-23-2020 End: 11-23-2020 Subsequent hospital visit by physician Ayde Matthews DO Work Phone: [facility] Comment on above: Post-op pain (Primar y Dx) Start: 11-17-2020 End: 11-17-2020 Subsequent hospital visit by physician Raffy Sparks [facility] Medication Manangement Comment on above: retirement (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; LV (left ventricular) 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 Start: 11-09-2020 End: 11-14-2020 ambulatory [facility] Start: 11-09-2020 End: 11-13-2020 Subsequent hospital visit by physician Bina Roberts 1 [facility] Pre-Admit Testing Start: 11-02-2020 End: 11-04-2020 Subsequent hospital visit by physician [facility] Ultrasound Room [facility] Ultrasound Comment on above: Epigastric pain Start: 08-25-2020 End: 08-27-2020 Subsequent hospital visit by physician [facility] Echo Room [facility] ECHO Comment on above: Cardiomyopathy, unsp ecified type (HCC); SOB (shortness of breath) 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; Coronary artery 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, unspecified vessel or lesion type; Hypertension, unspecified type; Vitamin D deficiency disease; Other specified diabetes mellitus without complication, with long-term current use of insulin (HCC) Start: 08-14-2020 End: 08-14-2020 Subsequent hospital visit by physician Raffy Sparks [facility] Medication [facility]angement Comment on above: retirement (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; LV (left ventricular) 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 Start: 05-14-2020 End: 05-14-2020 Subsequent hospital visit by physician Lorri Carmen Work Phone: [facility] Medication Manangement Comment on above: retirement (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; LV (left ventricular) 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 Start: 04-02-2020 End: 04-02-2020 Subsequent hospital visit by physician Lorri Carmen Work Phone: [facility] Comment on above: 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; LV (left ventricular) 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 Start: 02-26-2020 End: 02-26-2020 Subsequent hospital visit by physician Jeff [facility] Comment on above: 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; Coronary artery 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, unspecified vessel or lesion type; Hypertension, unspecified type; Vitamin D deficiency disease; Shortness of breath Start: 02-20-2020 End: 02-20-2020 Subsequent hospital visit by physician Lorri Carmen Work Phone: [facility] Comment on above: 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; LV (left ventricular) 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 Start: 01-21-2020 End: 01-21-2020 Subsequent hospital visit by physician Jeff RICO Laboratory Start: 01-09-2020 End: 01-09-2020 Subsequent hospital visit by physician Lorri Carmen Work Phone: [facility] Comment on above: retirement (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; LV (left ventricular) 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 Start: 10-17-2019 End: 10-17-2019 Subsequent hospital visit by physician Lorri Carmen Work Phone: [facility] Comment on above: 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; LV (left ventricular) 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 Start: 2019 End: 2019 Subsequent hospital visit by physician Jeff RICO Laboratory Comment on above: Kidney insufficiency Start: 09-02-2019 End: 09-02-2019 Subsequent hospital visit by physician Jeff Cerda MD Other Phone: [facility] Laboratory Comment on above: 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; Coronary artery 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, unspecified vessel or lesion type; Hypertension, unspecified type; Vitamin D deficiency disease; Shortness of breath Start: 09-02-2019 End: 09-02-2019 Subsequent hospital visit by physician Raffy Richardson [facility] Medication Manangement Comment on above: retirement (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; LV (left ventricular) 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 Start: 08-19-2019 End: 08-21-2019 Subsequent hospital visit by physician Phuong Gaston [facility] Stress Lab Comment on above: Shortness of breath Cardiomyopathy, unsp ecified type (HCC); Shortness of breath Arrived Start: 08-14-2019 End: 08-14-2019 Subsequent hospital visit by physician Jeff Cerda MD Other Phone: [facility] Laboratory Comment on above: Elevated bilirubin; Calculus of gallbladder without cholecystitis without obstruction Start: 08-12-2019 End: 08-12-2019 Emergency department patient visit Eloina Pat MD Work Phone: [facility] ED Comment on above: Acute on chronic con gestive heart failure, unspecified heart failure type (HCC) (Primary Dx); Coronary artery 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, unspecified vessel or lesion type; Hypertension, unspecified type; Other specified diabetes mellitus without complication, with long-term current use of insulin (HCC); Cardiomyopathy, unspecified type (HCC); Shortness of breath; Elevated bilirubin; Calculus of gallbladder without cholecystitis without obstruction Start: 06-03-2019 End: 06-03-2019 Subsequent hospital visit by physician Raffy Richardson [facility] Medication Manangement Comment on above: retirement (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; LV (left ventricular) 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 Start: 04-11-2019 End: 04-11-2019 Subsequent hospital visit by physician Lorri Carmen [facility] Medication Manangement Comment on above: 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; LV (left ventricular) 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 Start: 10-31-2017 [facility] Start: 10-18-2017 End: 10-19-2017 Ambulatory SHADY Mcpherson [facility] Start: 10-17-2017 Ambulatory [facility] Start: 09-25-2017 [facility]ulatory [facility] Start: 09-18-2017 End: 09-19-2017 Ambulatory AYDE NICOLE [facility] Start: 09-18-2017 End: 09-18-2017 Ambulatory Ayde Nicole Work Phone: [facility] Start: 09-06-2017 End: 09-06-2017 Ambulatory Ayde Nicole Facility:[facility] Start: 07-06-2017 End: 07-07-2017 Ambulatory DEFAULT PHYSICIAN Facility:[facility] Procedures Date Procedure Procedure Detail Performing Clinician Start: 07-04-2023 ICD REMOTE CHECK Guzman Vitale MD Work Phone: Start: 06-16-2023 ICD CLINIC CHECK Guzman Vitale MD Work Phone: Start: 06-12-2023 ICD REMOTE CHECK Guzman Vitale MD Work Phone: Start: 06-05-2023 ICD REMOTE CHECK Guzman Vitale MD Work Phone: Start: 05-19-2023 ICD REMOTE CHECK Guzman Vitale MD Work Phone: Start: 05-12-2023 ICD CLINIC CHECK Guzman Vitale MD Work Phone: Start: 04-07-2023 ICD CLINIC CHECK Guzman Vitale MD Work Phone: Start: 03-30-2023 Antibody screen CHANDNI VITALE Comment on above: Order Comment: Speci men Type: BLOOD SPECIMENOrdering Facility: [facility] Address: [address] [place] [address] Performed By: #### T SCR ####CC MAIN BLOOD BANKCLIA [id number] [place] [address] [place] Start: 03-24-2023 ICD CLINIC CHECK Guzman Vitale MD Work Phone: Start: 03-22-2023 Echocardiography GUZMAN VITALE Start: 02-20-2023 Radiologic exam ches t 2 views Rafa Nicole MD Work Phone: Start: 01-04-2023 Prothrombin time Histor ical Provider Start: 11-23-2022 Prothrombin time Histor ical Provider Start: 10-26-2022 Prothrombin time Histor ical Provider Start: 09-21-2022 Prothrombin time Histor ical Provider Start: 08-24-2022 Prothrombin time Histor ical Provider Start: 07-27-2022 Prothrombin time Histor ical Provider MD Start: 06-01-2022 Prothrombin time Histor ical Provider Start: 04-27-2022 Prothrombin time Histor ical Provider Start: 03-30-2022 Prothrombin time Histor ical Provider Start: 03-16-2022 Prothrombin time Histor ical Provider MD Start: 03-02-2022 Prothrombin time Histor ical Provider MD Start: 02-22-2022 Radiologic exam ches t 2 views Rafa Nicole MD Work Phone: Start: 02-22-2022 Lipid panel Rafa red MD Work Phone: Start: 02-22-2022 PATIENT FASTING? Rafa Nicole MD Work Phone: Start: 02-22-2022 Ecg routine ecg w/le ast 12 lds w/i&r Rafa Nicole MD Work Phone: Start: 02-22-2022 End: 02-22-2022 Prothrombin time Historical Provider Start: 02-03-2022 Prothrombin time Histor ical Provider Start: 01-27-2022 Prothrombin time Histor ical Provider Start: 01-20-2022 Prothrombin time Histor ical Provider Start: 01-13-2022 Prothrombin time Histor ical Provider Start: 01-08-2022 Dup-scan xtr veins unilateral/limited study Lonnie Hart MD Work Phone: Start: 01-06-2022 Prothrombin time Histor ical Provider Start: 12-29-2021 TTE w or wo Bill panda MD Work Phone: Start: 12-29-2021 Glucose measurement Puma Buckley MD Work Phone: Start: 12-29-2021 Prothrombin time Susy Hernandez [facility],PharmD Start: 12-28-2021 Glucose measurement Puma Buckley MD Work Phone: Start: 12-28-2021 Radiologic exam ches t single view Tin Lei MD Work Phone: Start: 12-28-2021 End: 12-28-2021 Electrolyte panel Tin Lei MD Work Phone: Start: 12-28-2021 Ecg routine ecg w/le ast 12 lds trcg only w/o i&r Tin Lei MD Work Phone: Start: 12-28-2021 Glucose measurement Puma Buckley MD Work Phone: Start: 12-28-2021 ANGIOGRAPHY IMAGING FOR OR Shahab Buckley MD Work Phone: Start: 12-28-2021 Coagulation time activated Shahab Buckley MD Work Phone: Start: 12-28-2021 End: 12-28-2021 TRANSCAROTID ARTERY REVASCULARIZATION Shahab Buckley MD Work Phone: Start: 12-28-2021 Glucose measurement Puma Buckley MD Work Phone: Start: 12-22-2021 Prothrombin time Histor anitra Platt MD Start: 12-09-2021 Prothrombin time Histor anitra Platt MD Start: 12-08-2021 Follow-up visit Follow-up SHAHAB BUCKLEY Start: 11-16-2021 Prothrombin time Histor anitra Platt MD Start: 10-26-2021 Duplex scan extracra nial art compl bi study Jeff Cerda MD Work Phone: Start: 08-10-2021 Prothrombin time Histor anitra Platt MD Start: 06-07-2021 Prothrombin time Histor anitra Platt MD Start: 04-23-2021 Prothrombin time Histor anitra Platt MD Start: 03-01-2021 Prothrombin time Histor anitra Platt MD Start: 02-25-2021 Ecg routine ecg w/le ast 12 lds w/i&r Rafa Nicole MD Work Phone: Start: 02-25-2021 Lipid panel Rafa red MD Work Phone: Start: 02-25-2021 PATIENT FASTING? Rafa Nicole MD Work Phone: Start: 02-25-2021 End: 02-25-2021 Hemoglobin glycosylated a1c Jeff lozano MD Work Phone: Start: 12-29-2020 Prothrombin time Histor ical Provider Start: 11-23-2020 Glucose blood reagent strip Ayde Matthews DO Work Phone: Start: 11-23-2020 CREATININE W/GFR POI NT OF CARE Ayde Matthews DO Work Phone: Start: 11-23-2020 End: 11-23-2020 Gluc bld gluc mntr dev cleared fda spec home use Ayde Matthews DO Work Phone: Start: 11-23-2020 Potassium [Moles/vol ume] in Serum or Plasma Ayde Matthews DO Work Phone: Start: 11-17-2020 Prothrombin time Histor ical Provider Start: 11-09-2020 Basic metabolic pane l calcium total Ayde Matthews Work Phone: Start: 11-09-2020 Blood count complete automated Ayde Matthews Work Phone: Start: 11-09-2020 Prothrombin time Ming Matthews Work Phone: Start: 11-09-2020 Ecg routine ecg w/le ast 12 lds trcg only w/o i&r Brendon De Souza Work Phone: Start: 11-09-2020 EKG REPORT Hpf Scanni ng Start: 11-02-2020 Us abdominal real ti me w/image limited Ayde Matthews Work Phone: Start: 08-25-2020 Ecg routine ecg w/le ast 12 lds w/i&r Rafa Nicole Work Phone: Start: 08-25-2020 25 hydroxy includes fractions if performed Rafa Nicole Work Phone: Start: 08-25-2020 Assay of magnesium Rafa Nicole Work Phone: Start: 08-25-2020 Assay of thyroid sti mulating hormone tsh Rafa Nicole Work Phone: Start: 08-25-2020 Blood count complete auto&auto difrntl wbc Rafa Nicole Work Phone: Start: 08-25-2020 Comprehensive metabo lic panel Rafa Nicole Work Phone: Start: 08-25-2020 Lipid panel Rafa hermana Work Phone: Start: 08-25-2020 PATIENT FASTING? Rafa Nicole Work Phone: Start: 08-25-2020 Radiologic exam ches t 2 views Rafa Nicole Work Phone: Start: 08-14-2020 Prothrombin time Rafa Nicole Work Phone: Start: 08-14-2020 Comprehensive metabo lic panel Jeff Cerda Other Phone: Start: 08-14-2020 Hemoglobin glycosylated a1c Jeff Cerda Other Phone: Start: 05-14-2020 Prothrombin time Histor ical Provider Start: 04-02-2020 Prothrombin time Histor ical Provider Start: 02-26-2020 25 hydroxy includes fractions if performed Rafa Nicole Work Phone: Start: 02-26-2020 Assay of magnesium Rafa Nicole Work Phone: Start: 02-26-2020 Assay of thyroid sti mulating hormone tsh Rafa Nicole Work Phone: Start: 02-26-2020 Blood count complete auto&auto difrntl wbc Rafa Nicole Work Phone: Start: 02-26-2020 Comprehensive metabo lic panel Rafa Nicole Work Phone: Start: 02-26-2020 Lipid panel Rafa red Work Phone: Start: 02-26-2020 PATIENT FASTING? Rafa Nicole Work Phone: Start: 02-20-2020 Prothrombin time Histor ical Provider Start: 01-30-2020 Microalbumin [Mass/v olume] in Urine by Test strip Angeles Samano RN Start: 01-21-2020 Comprehensive metabo lic panel Jeff Cerda Other Phone: Start: 01-21-2020 Hemoglobin glycosylated a1c Jeff Cerda Other Phone: Start: 01-21-2020 Lipid panel Jeff day Other Phone: Start: 01-21-2020 PATIENT FASTING? Jeff Cerda Other Phone: Start: 01-09-2020 Prothrombin time Histor ical Provider Start: 10-17-2019 Prothrombin time Histor ical Provider Start: 2019 Basic metabolic pane l calcium total Rafa Nicole Work Phone: Start: 09-02-2019 Basic metabolic pane l calcium total Rafa Nicole MD Work Phone: Start: 09-02-2019 Prothrombin time Histor ical Provider Start: 08-19-2019 Myocardial spect mul tiple studies Rafa Nicole MD Work Phone: Start: 08-14-2019 Basic metabolic pane l calcium total Eloina Pat MD Work Phone: Start: 08-14-2019 Hepatic function panel Eloina Pat MD Work Phone: Start: 08-12-2019 Ct abdomen & pelvis w/contrast material Eloina Pat MD Work Phone: Start: 08-12-2019 Hepatic function panel Eloina Pat MD Work Phone: Start: 08-12-2019 Radiologic exam ches t single view Eloina Pat MD Work Phone: Start: 08-12-2019 End: 08-12-2019 Basic metabolic panel calcium total Eloina Pat MD Work Phone: Start: 06-03-2019 Prothrombin time Histor ical Provider Start: 04-11-2019 Prothrombin time Histor ical Provider Start: 09-01-2017 History of percutane ous transluminal coronary angioplasty History of PTCA Eloina Pat MD Work Phone: Angioplasty of carot id artery Shady Aviles MD Work Phone: Laparoscopic cholecystectomy Shady Aviles MD Work Phone: Placement of stent i n coronary artery Shady Aviles MD Work Phone: Plan of Treatment Date Care Activity Detail Author Start: 07-12-2024 BP Controlled (<130/80) BP Controlled (<130/80) [facility] Start: 07-12-2024 Serum Creatinine Serum Creatinine [facility] Start: 06-27-2024 BP Controlled (<130/80) BP Controlled (<130/80) [facility] Start: 06-16-2024 BP Controlled (<130/80) BP Controlled (<130/80) [facility] Start: 06-16-2024 Serum Creatinine Serum Creatinine [facility] Start: 04-26-2024 BP Controlled (<130/80) BP Controlled (<130/80) [facility] Start: 04-26-2024 Serum Creatinine Serum Creatinine [facility] Start: 04-13-2024 HEMOGLOBIN/HEMATOCRIT HEMOGLOBIN/HEMATOCRIT [facility] Start: 04-13-2024 SERUM CREATININE SERUM CREATININE [facility] Start: 04-07-2024 HEMOGLOBIN/HEMATOCRIT HEMOGLOBIN/HEMATOCRIT [facility] Start: 04-07-2024 SERUM CREATININE SERUM CREATININE [facility] Start: 03-24-2024 HEMOGLOBIN/HEMATOCRIT HEMOGLOBIN/HEMATOCRIT [facility] Start: 03-23-2024 SERUM CREATININE SERUM CREATININE [facility] Start: 03-21-2024 HEMOGLOBIN/HEMATOCRIT HEMOGLOBIN/HEMATOCRIT [facility] Start: 03-21-2024 Hepatitis B screening URINE ALBUMIN:CREATININE RATIO [facility] Start: 03-21-2024 SERUM CREATININE SERUM CREATININE [facility] Start: 02-21-2024 GFR test (Diabetes, CKD 3-4, OR last GFR 15-59) GFR test (Diabetes, CKD 3-4, OR last GFR 15-59) [facility] Start: 02-21-2024 Hemoglobin A1c measurement A1C test (Diabetic or Prediabetic) [facility] Start: 02-21-2024 Hepatitis B surface antibody level LDL Cholesterol [facility] Start: 02-21-2024 Lipid panel Lipids [facility] Start: 09-21-2023 Hemoglobin A1c/Hemoglobin.total in Blood HBA1C [facility] Start: 09-18-2023 End: 12-18-2023 Basic metabolic 2000 panel - Serum or Plasma BASIC METABOLIC PNL Lab Routine Chronic systolic HF (heart failure) ([facility]) Expected: 09/18/2023, Expires: 12/18/2023 [facility] Work Phone: Comment on above: Expected: 09/18/2023, Expires: Start: 09-18-2023 End: 12-18-2023 Natriuretic peptide.B prohormone N-Terminal [Mass/volume] in Serum or Plasma NT PRO BNP Lab Routine Chronic systolic HF (heart failure) ([facility]) Expected: 09/18/2023, Expires: 12/18/2023 [facility] Work Phone: Comment on above: Expected: 09/18/2023, Expires: Start: 08-30-2023 End: 08-30-2023 Patient encounter procedure [facility] Start: 07-12-2023 End: 10-11-2023 Comprehensive metabolic 2000 panel - Serum or Plasma COMP METABOLIC PANEL Lab STAT Chronic systolic HF (heart failure) ([facility]) Expected: 07/12/2023, Expires: 10/11/2023 [facility] Work Phone: Comment on above: Expected: 07/12/2023, Expires: 4 Start: 07-12-2023 End: 10-11-2023 Magnesium [Mass/volume] in Serum or Plasma MAGNESIUM BLD Lab STAT Chronic systolic HF (heart failure) ([facility]) Expected: 07/12/2023, Expires: 10/11/2023 [facility] Work Phone: Comment on above: Expected: 07/12/2023, Expires: 4 Start: 07-12-2023 End: 10-11-2023 Natriuretic peptide.B prohormone N-Terminal [Mass/volume] in Serum or Plasma NT PRO BNP Lab STAT Chronic systolic HF (heart failure) ([facility]) Expected: 07/12/2023, Expires: 10/11/2023 [facility] Work Phone: Comment on above: Expected: 07/12/2023, Expires: Start: 04-07-2023 Covid-19 Vaccine () Covid-19 Vaccine () [facility] Start: 04-07-2023 Influenza vaccination [facility] Start: 03-29-2023 End: 03-29-2023 Patient encounter procedure 03/29/2023 Appointment [facility] Start: 03-07-2023 Influenza [facility] Start: 02-27-2023 End: 02-27-2023 Patient encounter procedure 02/27/2023 Office Visit Cardiology Rafa Nicole MD [address] [id number] [facility] [employer] [employer] Start: 02-23-2023 End: 02-23-2023 Patient encounter procedure 02/23/2023 Appointment Echocardiography Rafa Nicole MD [address] [place] [address] [facility] Start: 02-22-2023 GFR test (Diabetes, CKD 3-4, OR last GFR 15-59) GFR test (Diabetes, CKD 3-4, OR last GFR 15-59) [facility] Start: 02-22-2023 Hemoglobin A1c measurement A1C test (Diabetic or Prediabetic) [facility] Start: 02-22-2023 Lipid panel [facility]ids [facility] Start: 02-20-2023 End: 02-20-2023 Patient encounter procedure 02/20/2023 Appointment Echocardiography [facility] Start: 02-15-2023 End: 02-15-2023 Patient encounter procedure 02/15/2023 Appointment [facility] Start: 01-04-2023 End: 01-04-2023 Patient encounter procedure 01/04/2023 Appointment [facility] Start: 11-26-2022 Creatinine measurement Creatinine [facility] Start: 11-26-2022 Potassium [Moles/volume] in Serum or Plasma Potassium [facility] Start: 11-23-2022 End: 11-23-2022 Patient encounter procedure 11/23/2022 [facility] Start: 10-26-2022 End: 10-26-2022 Patient encounter procedure 10/26/2022 Appointment [facility] Start: 09-21-2022 End: 09-21-2022 Patient encounter procedure 09/21/2022 Appointment [facility] Start: 2022 ADVANCE DIRECTIVE DISCUSSION ADVANCE DIRECTIVE DISCUSSION [facility] Start: 2022 Fall risk assessment Falls Risk Assessment [facility] Start: 2022 Pneumococcal Vaccine: Age 65+ (1 - PCV) Pneumococcal Vaccine: Age 65+ (1 - PCV) [facility] Start: 09-06-2022 Hemoglobin A1c measurement A1C test (Diabetic or Prediabetic) [facility] Start: 08-26-2022 End: 08-26-2022 Patient encounter procedure [facility] Start: 08-25-2022 Hemoglobin A1c measurement A1C [facility] Start: 08-24-2022 End: 08-24-2022 Patient encounter procedure 08/24/2022 [facility] Start: 08-19-2022 End: 08-19-2022 Patient encounter procedure [facility] Start: 06-29-2022 End: 06-29-2022 Patient encounter procedure 06/29/2022 [facility] Start: 06-01-2022 End: 06-01-2022 Patient encounter procedure 06/01/2022 [facility] Start: 04-27-2022 End: 04-27-2022 Patient encounter procedure 04/27/2022 [facility] Start: 04-07-2022 Influenza vaccination [facility] Start: 03-30-2022 End: 03-30-2022 Patient encounter procedure 03/30/2022 Appointment [facility] Start: 03-16-2022 End: 03-16-2022 Patient encounter procedure 03/16/2022 Appointment [facility] Start: 03-07-2022 Influenza vaccination Flu vaccine (#1) [facility] Start: 03-06-2022 Hemoglobin A1c measurement A1C [facility] Start: 03-02-2022 End: 03-02-2022 Patient encounter procedure 03/02/2022 [facility] Start: 02-28-2022 End: 02-28-2022 Patient encounter procedure [facility] Start: 02-25-2022 Creatinine measurement Creatinine monitoring [facility] Start: 02-25-2022 Hemoglobin A1c measurement A1C test (Diabetic or Prediabetic) [facility] Start: 02-25-2022 Lipid panel [facility] Start: 02-25-2022 Potassium monitoring Potassium monitoring [facility] Start: 02-25-2022 Screening for malignant neoplasm of colon [facility] Start: 02-11-2022 End: 02-11-2022 Patient encounter procedure [facility] Start: 02-10-2022 End: 02-10-2022 Patient encounter procedure 02/10/2022 Appointment [facility] Start: 02-03-2022 End: 02-03-2022 Patient encounter procedure 02/03/2022 Appointment [facility] Start: 01-29-2022 End: 03-31-2022 Carotid artery doppler assessment Ultrasound doppler carotid Vascular Ultrasound Routine Carotid stenosis, symptomatic w/o infarct, right Expected: 01/29/2022, Expires: 03/31/2022 [facility] Work Phone: Comment on above: Expected: 01/29/2022, Expires: Start: 01-27-2022 End: 01-27-2022 Patient encounter procedure 01/27/2022 Appointment [facility] Start: 01-20-2022 End: 01-20-2022 Patient encounter procedure 01/20/2022 Appointment [facility] Start: 01-13-2022 End: 01-13-2022 Patient encounter procedure 01/13/2022 Appointment [facility] Start: 01-07-2022 End: 01-07-2023 VL DUP UPPER EXTREMITY VENOUS LEFT VL DUP UPPER EXTREMITY VENOUS LEFT Imaging Routine Left arm pain Expected: 01/07/2022, Expires: 01/07/2023 [facility] [employer] Work Phone: Comment on above: Expected: 01/07/2022, Expires: Start: 01-06-2022 End: 01-06-2022 Patient encounter procedure 01/06/2022 Appointment Pharmacy [facility] Start: 12-28-2021 End: 12-28-2021 Admission to same day surgery center 12/28/2021 Surgery Radiology Shahab Buckley MD [address] [place] [address] TRANSCAROTID ARTERY REVASCULARIZATION [facility] Interventional Radiology Comment on above: TRANSCAROTID ARTERY REVASCULARIZATION Start: 12-28-2021 Subsequent hospital visit by physician 12/28/2021 Hospital Encounter Cardiology Shahab Buckley MD [address] [place] [address] [facility] Procedural Care Unit Start: 12-28-2021 End: 12-28-2021 TRANSCAROTID ARTERY REVASCULARIZATION TRANSCAROTID ARTERY REVASCULARIZATION Symptomatic stenosis of right carotid artery 12/28/2021 12:30 PM EDT [facility] Start: 12-09-2021 End: 12-09-2021 Patient encounter procedure 12/09/2021 Appointment Pharmacy [facility] Start: 12-08-2021 End: 12-08-2021 Patient encounter procedure 12/08/2021 Office Visit Cardiology Shahab Buckley MD [address] [place] [address] [facility] Start: 12-06-2021 End: 12-06-2021 Patient encounter procedure 12/06/2021 Appointment Radiology Shahab Buckley MD [facility] [place] [address] [facility] CT Scan Start: 11-23-2021 Creatinine measurement Creatinine monitoring [facility] Phone: Start: 11-23-2021 Potassium monitoring Potassium monitoring [facility] Phone: Start: 11-16-2021 End: 11-16-2021 Patient encounter procedure 11/16/2021 Appointment [facility] Start: 11-14-2021 COVID-19 Vaccine (4 - Booster for Pfizer series) COVID-19 Vaccine (4 - Booster for Pfizer series) [facility] Start: 11-09-2021 Creatinine measurement Creatinine monitoring [facility] Phone: Start: 11-09-2021 Potassium monitoring Potassium monitoring [facility] Phone: Start: 09-10-2021 COVID-19 Vaccine (4 - Booster for Pfizer series) COVID-19 Vaccine (4 - Booster for Pfizer series) [facility] [employer] Start: 09-10-2021 COVID-19 VACCINE (4 - Pfizer series) COVID-19 VACCINE (4 - Pfizer series) [facility] Start: 09-06-2021 End: 09-06-2021 Patient encounter procedure 09/06/2021 Appointment [facility] Start: 08-25-2021 Creatinine measurement Creatinine monitoring [facility] [employer] Start: 08-25-2021 Lipid panel Lipid screen [facility], [employer] Start: 08-25-2021 Potassium monitoring Potassium monitoring [facility], [employer] Start: 08-14-2021 Creatinine measurement Creatinine monitoring [facility] [place], [place] Start: 08-14-2021 HbA1c (Bld) [Mass fraction] A1C test (Diabetic or Prediabetic) [facility] [employer] Start: 08-14-2021 Hemoglobin A1c measurement A1C test (Diabetic or Prediabetic) [facility] Phone: Start: 08-14-2021 Potassium monitoring Potassium monitoring [facility], [place] Start: 07-19-2021 End: 07-19-2021 Patient encounter procedure 07/19/2021 [facility] Start: 06-07-2021 End: 06-07-2021 Patient encounter procedure 06/07/2021 Appointment Pharmacy [facility] Start: 05-02-2021 COVID-19 Vaccine (3 - Pfizer booster) COVID-19 Vaccine (3 - Pfizer booster) [facility] [employer] Work Phone: Start: 04-19-2021 End: 04-19-2021 Patient encounter procedure 04/19/2021 [facility] Start: 04-07-2021 Influenza vaccination [facility] [employer] Start: 03-01-2021 End: 03-01-2021 Office Visit [facility] Start: 02-25-2021 Creatinine measurement Creatinine [facility] [place] Start: 02-25-2021 Lipid panel Lipid screen [place], [place] Start: 02-25-2021 Potassium monitoring Potassium monitoring [facility] [place] Start: 01-29-2021 Microalbumin measurement, urine, quantitative Urine Microalbumin [facility] Start: 01-29-2021 Urine screening for protein [facility] [employer] Start: 01-20-2021 Creatinine measurement Creatinine monitoring [facility] [employer] [place] Start: 01-20-2021 HbA1c (Bld) [Mass fraction] A1C test (Diabetic or Prediabetic) [place], [place] Start: 01-20-2021 Lipid panel Lipid screen [place], [place] Start: 01-20-2021 Potassium monitoring Potassium monitoring [facility] [place] Start: 01-19-2021 End: 01-19-2021 Patient encounter procedure 01/19/2021 [facility] Start: 12-29-2020 End: 12-29-2020 Appointment 12/29/2020 Appointment Pharmacy [facility] Start: 11-23-2020 End: 11-23-2020 Hospital Encounter [facility] [place] Comment on above: XI ROBOTIC LAPAROSCOPIC CHOLECYSTECTOMY, POSSIBLE OPEN Start: 11-18-2020 End: 11-18-2020 Appointment 11/18/2020 Appointment Pre-Admission Testing [facility] Start: 11-17-2020 End: 11-17-2020 Appointment [facility] Comment on above: Arrived Start: 11-09-2020 Hospital Encounter 11/09/2020 Hospital Encounter Pre-Admission Testing [facility] Pre-Admit Testing Start: 09-29-2020 End: 09-29-2020 Appointment 09/29/2020 Appointment [facility] Start: 2020 Creatinine measurement Creatinine monitoring [facility] [place] Start: 2020 Creatinine monitoring Creatinine monitoring [facility] [place] , [place] Start: 2020 Potassium monitoring Potassium monitoring [facility] [place], [place] Start: 09-02-2020 Creatinine monitoring Creatinine monitoring [facility] Phone: Start: 09-02-2020 Potassium monitoring Potassium monitoring [facility] Phone: Start: 08-31-2020 End: 08-31-2020 Office Visit 08/31/2020 Office Visit Cardiology Rafa Nicole MD [address] [place] [phone] [facility] [employer] Start: 08-25-2020 End: 08-25-2020 Appointment 08/25/2020 Appointment Echocardiography [facility] Start: 08-14-2020 Creatinine monitoring Creatinine monitoring [facility] Phone: Start: 08-14-2020 Potassium monitoring Potassium monitoring [facility] Phone: Start: 08-12-2020 Creatinine monitoring Creatinine monitoring [facility] Phone: Start: 08-12-2020 Potassium monitoring Potassium monitoring [facility] Phone: Start: 06-25-2020 End: 06-25-2020 Appointment 06/25/2020 Appointment [facility]acy [facility] Start: 05-14-2020 End: 05-14-2020 Appointment 05/14/2020 Appointment [facility] Start: 04-07-2020 [facility] Start: 04-02-2020 End: 04-02-2020 Appointment 04/02/2020 Appointment Pharmacy [facility] Start: 03-04-2020 Urine screening for protein Diabetic Alb to Cr ratio (uACR) test [facility] Start: 03-02-2020 End: 03-02-2020 Office Visit 03/02/2020 Office Visit Cardiology Rafa Nicole MD [address] [place] [address] [phone] [facility] [employer] Start: 02-27-2020 A1C test (Diabetic or Prediabetic) A1C test (Diabetic or Prediabetic) [place], [place] Start: 02-27-2020 Creatinine monitoring Creatinine monitoring [place], [place] Start: 02-27-2020 HbA1c (Bld) [Mass fraction] A1C test (Diabetic or Prediabetic) [place], [place] Start: 02-27-2020 Lipid panel Lipid screen [place], [place] Start: 02-27-2020 Lipid screen Lipid screen [place], [place] Start: 02-27-2020 Potassium monitoring Potassium monitoring [place], [place] Start: 02-20-2020 End: 02-20-2020 Appointment 02/20/2020 Appointment Pharmacy [facility] Start: 11-28-2019 End: 11-28-2019 Appointment 11/28/2019 Appointment Pharmacy [facility] Start: 11-19-2019 End: 11-19-2019 Office Visit 11/19/2019 Office Visit Cardiology Rafa Nicole MD [address] [place] [address] [phone] [facility] [employer] Start: 11-05-2019 End: 11-05-2019 Office Visit 11/05/2019 Office Visit Bariatrics Wagner Jose MD [facility] [place] [address] [facility] Invasive Bariatric Surg Start: 10-25-2019 End: 10-25-2019 Office Visit 10/25/2019 Office Visit Cardiology Rafa Nicole MD [address], [place] [phone] [facility] [employer] Start: 10-24-2019 End: 10-24-2019 Hospital Encounter [facility] [place] Comment on above: LAPAROSCOPIC XI ROBOTIC CHOLECYSTECTOMY Start: 10-16-2019 End: 10-16-2019 Appointment 10/16/2019 Appointment [facility]acy [facility] Start: 09-25-2019 End: 09-25-2019 Hospital Encounter [facility] [place] Comment on above: CHOLECYSTECTOMY LAPAROSCOPIC ROBOTIC Start: 09-02-2019 End: 09-02-2019 Office Visit [facility] [employer] Start: 08-19-2019 End: 08-19-2019 Patient encounter procedure [facility] Start: 08-13-2019 End: 09-12-2019 Basic metabolic 2000 panel - Serum or Plasma Basic Metabolic Panel Lab Routine Elevated bilirubin Calculus of gallbladder without cholecystitis without obstruction Expected: 08/13/2019, Expires: 09/12/2019 [facility] Phone: Comment on above: Expected: 08/13/2019, Expires: 0 Start: 08-13-2019 End: 09-12-2019 CBC W Auto Differential panel - Blood CBC WITH AUTO DIFFERENTIAL Lab Routine Elevated bilirubin Calculus of gallbladder without cholecystitis without obstruction Expected: 08/13/2019, Expires: 09/12/2019 [facility] Phone: Comment on above: Expected: 08/13/2019, Expires: 0 Start: 08-13-2019 End: 09-12-2019 Comprehensive metabolic 2000 panel - Serum or Plasma Comprehensive Metabolic Panel Lab Routine Elevated bilirubin Calculus of gallbladder without cholecystitis without obstruction Expected: 08/13/2019, Expires: 09/12/2019 [facility] Phone: Comment on above: Expected: 08/13/2019, Expires: 0 Start: 08-13-2019 End: 09-12-2019 Hepatic function 2000 panel - Serum or Plasma Hepatic Function Panel Lab Routine Elevated bilirubin Calculus of gallbladder without cholecystitis without obstruction Expected: 08/13/2019, Expires: 09/12/2019 [employer] Phone: Comment on above: Expected: 08/13/2019, Expires: 02/06/202 0 Start: 07-17-2019 End: 07-17-2019 Appointment 07/17/2019 Appointment Pharmacy [facility] Start: 06-03-2019 End: 06-03-2019 Appointment [facility] [place] [facility] Start: 04-07-2019 Influenza vaccination Flu vaccine (#1) [place], [place] Start: 2017 Hepatitis B Vaccine (1 of 3 - Risk 3-dose series) Hepatitis B Vaccine (1 of 3 - Risk 3-dose series) [facility] Start: 2017 RSV Vaccine (1 - 1-dose 60+ series) RSV Vaccine (1 - 1-dose 60+ series) [facility] Start: 2017 Zoster vacc, sc ZOSTER VACCINE [facility] Work Phone: Start: 04-07-2017 Influenza vaccination SEQUENTIAL INFLUENZA VACCINE (#1) [facility] Work Phone: Start: 2012 PROSTATE CANCER SCREENING DISCUSSION PROSTATE CANCER SCREENING DISCUSSION [facility] Start: 2007 Administration of herpes zoster vaccine Zoster Vaccines (1 of 2) [facility] Start: 2007 Colon cancer screen colonoscopy Colon cancer screen colonoscopy [place], [place] Start: 2007 Screening for malignant neoplasm of colon [facility] Start: 2007 Shingles Vaccine (1 of 2) Shingles Vaccine (1 of 2) [facility] Start: 2007 SHINGRIX VACCINE (1 of 2) SHINGRIX VACCINE (1 of 2) [facility] Start: 2002 COLOGUARD (FIT-DNA) COLOGUARD (FIT-DNA) [facility] Start: 2002 Colonoscopy COLONOSCOPY [facility] Start: 2002 COLORECTAL CANCER SCREENING COLORECTAL CANCER SCREENING [facility] Start: [address] COLONOGRAPHY [facility] Start: 2002 FECAL OCCULT BLOOD FECAL OCCULT BLOOD [facility] Start: 2002 Screening for malignant neoplasm of colon [facility] Start: 2002 SIGMOIDOSCOPY SIGMOIDOSCOPY [facility] Start: 1997 Prostate specific antigen measurement Prostate Specific Antigen (PSA) Screening or Monitoring [facility] Start: 1976 DTaP/Tdap/Td vaccine (1 - Tdap) DTaP/Tdap/Td vaccine (1 - Tdap) [facility] Start: 1976 Hepatitis B vaccine (1 of 3 - Risk 3-dose series) Hepatitis B vaccine (1 of 3 - Risk 3-dose series) [place], [place] Start: 1976 Urine microalbumin profile [facility] Start: 1975 ANNUAL PCP TEAM CHRONIC DISEASE VISIT ANNUAL PCP TEAM CHRONIC DISEASE VISIT [facility] Start: 1975 BP CONTROLLED (<130/80) BP CONTROLLED (<130/80) [facility] in Start: 1975 Diabetic microalbuminuria test Diabetic microalbuminuria test [place], [place] Start: 1975 Diabetic retinal exam Diabetic retinal exam [facility] Start: 1975 Glaucoma screening Diabetic retinal [facility] Start: 1975 Hepatitis B surface antibody level LDL CHOLESTEROL [facility] Start: 1975 Hepatitis C screening [facility] Start: 1975 HEPATITIS C SCREENING HEPATITIS C SCREENING [facility] Start: 1975 HIV SCREENING HIV SCREENING [facility] Start: 1975 Urine screening for protein Diabetic microalbuminuria test [facility] Start: 1973 COVID-19 Vaccine (1) COVID-19 Vaccine (1) [facility] [employer] Phone: Start: 1972 HIV screen HIV screen [place], [place] Start: 1972 HIV screening [facility] Start: 1969 COVID-19 Vaccine (1) COVID-19 Vaccine (1) [facility] [employer] Phone: Start: 1969 Depression Screen Depression Screen [facility] Start: 1969 Depression screening using PHQ-9 (Patient Health Questionnaire 9) score Depression Screening (PHQ-2/9) [facility] Start: 1968 DTaP/Tdap/Td vaccine (1 - Tdap) DTaP/Tdap/Td vaccine (1 - Tdap) [facility] [employer] Phone: Start: 1967 [object Object] Diabetic foot exam [facility] Start: 1967 Diabetic foot examination [facility] Start: 1967 Diabetic retinal exam Diabetic retinal exam [place], [place] Start: 1967 Glaucoma screening [facility] Start: 1967 Hepatitis C antibody, confirmatory test DILATED RETINAL EXAM [facility] Start: 1967 Microalbumin measurement, urine, quantitative Urine Microalbumin [facility] Start: 1967 Ophthalmic examination and evaluation Ophthalmology Exam [facility] Start: 1963 Pneumococcal 0-64 years Vaccine (1 - PCV) Pneumococcal 0-64 years Vaccine (1 - PCV) [facility] Start: 1963 Pneumococcal 0-64 years Vaccine (1 of 1 - PPSV23) Pneumococcal 0-64 years Vaccine (1 of 1 - PPSV23) [place] Start: 1963 Pneumococcal 0-64 years Vaccine (1 of 2 - PPSV23) Pneumococcal 0-64 years Vaccine (1 of 2 - PPSV23) [facility] Start: 1963 Pneumococcal 65+ years Vaccine (1 - PCV) Pneumococcal 65+ years Vaccine (1 - PCV) [facility] Start: 1963 Pneumococcal Vaccine: 65+ (1 - PCV) Pneumococcal Vaccine: 65+ (1 - PCV) [facility] Start: 1963 PNEUMOCOCCAL: 65+ (1 - PCV) PNEUMOCOCCAL: 65+ (1 - PCV) [facility] Start: 1960 History and physical examination, annual for health maintenance Wellness Visit [facility] Start: 1957 Hepatitis C screen Hepatitis C screen [place], [place] Start: 1957 HEPATITIS C SCREENING HEPATITIS C SCREENING [facility] Work Phone: Start: 1957 Hepatitis C screening Hepatitis C screen [facility] Start: 1957 Prostate specific antigen measurement PSA Level [facility] Start: 1957 Screening colonoscopy COLONOSCOPY [facility] Work Phone: Start: 1957 Screening for malignant neoplasm of colon [facility] Start: 1957 Tetanus vaccination [facility] End: 04-14-2023 Carotid artery doppler assessment Carotid Duplex Vascular Ultrasound Routine Carotid stenosis, symptomatic w/o infarct, right 1 Occurrences starting 02/11/2022 until 04/14/2023 [facility] Work Phone: Comment on above: 1 Occurrences starting 02/11/2022 until 04/14/2023 End: 10-25-2023 Carotid artery doppler assessment Carotid Duplex Vascular Ultrasound Routine Carotid stenosis, symptomatic w/o infarct, right 1 Occurrences starting 08/26/2022 until 10/25/2023 [employer] Work Phone: Comment on above: 1 Occurrences starting 08/26/2022 until 10/25/2023 End: 08-25-2020 ECHO Complete 2D W Doppler W Color ECHO Complete 2D W Doppler W Color Echocardiography Routine Cardiomyopathy, unspecified type (HCC) SOB (shortness of breath) 1 Occurrences starting 08/25/2020 until 08/25/2020 [facility] [place] [facility] on above: 1 Occurrences starting 08/25/2020 until 08/25/2020 End: 08-19-2019 ECHO Complete 2D W Doppler W Color ECHO Complete 2D W Doppler W Color Echocardiography Routine Cardiomyopathy, unspecified type (HCC) Shortness of breath 1 Occurrences starting 08/19/2019 until 08/19/2019 [employer] Work Phone: Comment on above: 1 Occurrences starting 08/19/2019 until 08/19/2019 EKG 12 Lead [employer] Phone: EKG 12 Lead EKG 12 Lead ECG Routine ICD (implantable cardioverter-defibrillat or) in place Coronary artery 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, unspecified vessel or lesion type Hypertension, unspecified type Vitamin D deficiency disease Cardiomyopathy, unspecified type (HCC) SOB (shortness of breath) 02/22/2022 8:53 AM EDT [facility] [employer] Work Phone: End: 11-23-2020 Glucose [Mass/volume] in Serum or Plasma POCT Glucose Point of Care Testing Routine One Time for 1 Occurrences starting 11/23/2020 until 11/23/2020 [employer] Phone: Comment on above: One Time for 1 Occurrences starting 11/05 until 11/23/2020 End: 04-19-2024 NM PET/CT CARDIAC VIABILITY NM PET/CT CARDIAC VIABILITY Radiology Routine Heart disease 1 Occurrences starting 03/21/2023 until 04/19/2024 [employer] Phone: Comment on above: 1 Occurrences starting 03/21/2023 until 04/19/2024 OUTSIDE VENDOR CARDI AC OUTPATIENT EXTENDED RHYTHM RECORDING (WITHOUT TELEMETRY) OUTSIDE VENDOR CARDIAC OUTPATIENT EXTENDED RHYTHM RECORDING (WITHOUT TELEMETRY) Holter Routine Frequent PVCs Ordered: 04/26/2023 [employer] Phone: Comment on above: Ordered: 04/26/2023 Oxygen therapy [[facility] Data Set] Initiate Oxygen Therapy Protocol Respiratory Care Routine Daily until discontinued starting 11/23/2020 [employer] Phone: Comment on above: Daily until discontinued starting 2020 Phase I & II - meter ed glucose Phase I & II - metered glucose Point of Care Testing Routine As Needed until discontinued starting 11/23/2020 [employer] Phone: Comment on above: As Needed until discontinued starting End: 11-23-2020 POCT potassium POCT potassium Point of Care Testing Routine One Time for 1 Occurrences starting 11/23/2020 until 11/23/2020 [employer] Phone: Comment on above: One Time for 1 Occurrences starting 11/05 until 11/23/2020 End: 11-23-2020 POCT Protime-INR POCT Protime-INR Point of Care Testing Routine One Time for 1 Occurrences starting 11/23/2020 until 11/23/2020 [employer] Phone: Comment on above: One Time for 1 Occurrences starting 11/05 until 11/23/2020 End: 08-19-2019 Stress test, lexiscan Stress test, lexiscan Cardiac Services Routine Shortness of breath 1 Occurrences starting 08/19/2019 until 08/19/2019 [employer] Phone: Comment on above: 1 Occurrences starting 08/19/2019 until 08/19/2019 Surgical Pathology Surgical Path ology Lab Routine Release Upon Ordering for 1 Occurrences starting 11/23/2020 [employer] Phone: Comment on above: Release Upon Ordering for 1 Occurrences starting 11/23/2020 UA DIP B/O UA DIP B/O Lab R outine Dysuria Ordered: 04/26/2023 [facility] Work Phone: Comment on above: Ordered: 04/26/2023 XR Chest 1 View XR Chest 1 View Imaging STAT 12/28/2021 3:56 PM EDT [facility] Work Phone: [facility] Immunizations Immunization Date Immunization Notes Care Provider Fa cili 07-16-2021 COVID-19 original vaccine, age 12+ yr, monovalent ([employer]Capriza - PURPLE TOP) Venus Willoughby MD Work Phone: [facility] Work Phone: 06-06-2017 influenza, seasonal, injectable, preservative free Venus Willoughby MD Work Phone: [facility] Work Phone: 06-06-2017 influenza virus vaccine, unspecified formulation Zeina Roca RN [facility] Payers Date Payer Category Payer Self-pay 2022 Medicare [id number] 2017 Unknown 2014 Unknown [id number] 2014 Unknown [employer] M [employer] [address] [id number] 2014-Present [phone] [address] [place] [address] [id number] [id number] 1959 Unknown [id number] 2.16.840.1.477824.3.249.13 1957 Unknown [id number] 2.16.840.1.741890.3.579.2.175 1957 Unknown [id number] 2.16.840.1.303930.3.579.2.175 1957 Unknown [id number] 2.16.840.1.387761.3.579.2.903 1957 Unknown [id number] 2.16.840.1.324980.3.579.2.903 1957 Unknown [id number] 2.16.840.1.485351.3.579.2.903 1957 Unknown [id number] 2.16.840.1.736427.3.579.2.903 1957 Unknown [id number] 2.16.840.1.950060.3.579.2.903 1957 Unknown [id number] 2.16.840.1.356600.3.579.2.903 1957 Unknown [id number] 2.16.840.1.957435.3.579.2.903 1957 Unknown [id number] 2.16.840.1.076557.3.579.2.903 1957 Unknown [id number] 2.16.840.1.149907.3.579.2.903 1957 Unknown [id number] 2.16.840.1.933717.3.579.2.593 1957 Unknown [id number] 2.16.840.1.198237.3.579.2.356 1957 Unknown [id number] 2.16.840.1.057711.3.579.2.356 1957 Unknown [id number] 2.16.840.1.732838.3.579.2.356 1957 Unknown [id number] 2.16.840.1.468408.3.579.2.356 1957 Unknown [id number] 2.16.840.1.486608.3.579.2.174 1957 Unknown [id number] 2.16.840.1.759566.3.579.2.174 1957 Unknown [id number] 2.16.840.1.923482.3.579.2.174 1957 Unknown [id number] 2.16.840.1.884944.3.579.2.174 1957 Unknown [id number] 2.16.840.1.935544.3.579.2.174 1957 Unknown [id number] 2.16.840.1.814395.3.579.2.174 1957 Unknown [id number] 2.16.840.1.396999.3.579.2.174 1957 Unknown [id number] 2.16.840.1.844234.3.579.2.174 1957 Unknown [id number] 2.16.840.1.045529.3.579.2.174 1957 Unknown [id number] 2.16.840.1.987629.3.579.2.174 1957 Unknown [id number] 2.16.840.1.508961.3.579.2.174 1957 Unknown [id number] 2.16.840.1.299529.3.579.2.174 1957 Unknown [id number] 2.16.840.1.090268.3.579.2.174 1957 Unknown [id number] 2.16.840.1.403065.3.579.2.174 1957 Unknown [id number] 2.16.840.1.134380.3.579.2.174 1957 Unknown [id number] 2.16.840.1.132041.3.579.2.174 1957 Unknown [id number] 2.16.840.1.226533.3.579.2.174 1957 Unknown [id number] 2.16.840.1.578588.3.579.2.174 1957 Unknown [id number] 2.16.840.1.403589.3.579.2.174 Unknown [id number] 2.16.840.1.924237.3.579.2.531 Unknown [id number] 2.16.840.1.342751.3.579.2.531 Social History Date Type Detail Facility Start: 09-18-2017 Tobacco smoking status OHIS Unknown if ever smoked [facility] Work Phone: Start: 1955 Sex Assigned At Not on file [facility] Work Phone: Start: 09-02-2019 End: 02-28-2022 Tobacco smoking status NHIS Never smoker [employer] Start: 09-02-2019 End: 02-28-2022 Alcohol intake Current non-drinker of alcohol (finding) [employer] Phone: Start: 10-01-2019 End: 02-28-2022 Tobacco use and exposure Never used [employer] Start: 03-04-2019 End: 03-21-2023 Alcohol intake No [employer] Start: 11-16-2021 End: 08-26-2022 Exposure to SARS-CoV-2 (event) Not sure [employer] Phone: Start: 11-27-2021 End: 08-26-2022 Alcohol intake Current drinker of alcohol (finding) [facility] Start: 11-27-2021 End: 03-21-2023 Alcohol intake [facility] Start: 12-08-2021 Gender identity Identifies as male gender (finding) [facility] Start: 12-08-2021 Sexual orientation Heterosexual (finding) [facility] National Score (1-10 0), lower number is lower risk 67 [facility] Medical Equipment Procedure Code Equipment Code Equipment Origin al Text Equipment Identifier Dates Zinactive Use Cl ip Int L Polymer Luisana Lig Hem O Luisana [id number] Start: 11-23-2020 Zinactive Use Cl ip Int L Polymer Luisana Lig Hem O Luisana [id number] Start: 11-23-2020 Clip Int L Polym er Luisana Lig Hem O Luisana [id number] Start: 11-23-2020 Clip Int L Polym er Luisana Lig Hem O Luisana [id number] Start: 11-23-2020 Stent 9 X 30mm Transcarotid Enroute - Sn/A [id number], [id number] FDA Start: 12-28-2021 Use with pen to administer insulin three times daily. Start: 04-13-2023 Comment on above: Use with pen to admi nister insulin three times daily. Clinical Notes 08-12-2019 to 07-12-2023 Patient InstructionsCarolina Barger MD - 07/12/2023 10:51 AM EST Note Date & Type Note Facility 07-12-2023 Note [facility] 07-12-2023 Instructions Carolina Barger MD - 07/12/2023 11:40 AM EST Thank you for visiting the [facility] at the [facility]. Here are your instructions. 1. No changes to medications. 2. Return in 6 months. Please call with questions or concerns. Office: [phone] Carolina Barger MD documented in this encounter [facility] 07-12-2023 History of Present illness Narrative Images from the original note were not included. [facility] [place] [facility] SECTION OF HEART FAILURE and CARDIAC TRANSPLANT MEDICINE OUTPATIENT VISIT DATE July 12, 2023 OUTPATIENT VISIT TYPE Established Patient PRIMARY CARE PHYSICIAN: Jeff Cerda MD [address] [place] [address] CHIEF COMPLAINT: Feeling well NURSING INTAKE (Patient s concerns and/or recent hospitalizations/ER visits): HF Nursing Assessment: Interim Hospitalizations and/or ER visits:06/16/23 Chest Pain: no Skipping or irregular heartbeats: a fib Shortness of breath at rest: no Shortness of breath with activity: no Cough: no Waking up in the middle of the night gasping for air: no Lightheadedness or dizziness: sometimes when standing quickly Feeling like you are going to pass out: no Actually passing out: no Poor energy level: fair Unintentional weight gain: no Unintentional weight loss: no Swelling in your legs,feet, abdomen: no Filling up quickly when you eat: no HISTORY OF PRESENT ILLNESS: 67 year old male hx CAD (mLAD stent with ISR and ORNAMENT SETTER distal to stent without collaterals, rPDA ORNAMENT SETTER with Lcx collaterals), ischemic HFrEF (13%) s/p single-chamber ICD, prior CVA s/p carotid revascularization, HTN, DM2, ASD s/p repair, CKD and prior LV 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. Since his last visit, he has done well. He denies any edema, orthopnea or PND. Was cardioverted out of AF but now back in. Does not feel any different. Planning to get skin grafting for foot wound. No past medical history on file. No past surgical history on file. SOCIAL HISTORY No family history on file. ALLERGIES: ALLERGIES No Known Allergies CURRENT MEDICATIONS: sacubitril-valsartan (ENTRESTO) 49-51 mg tablet Take 1 tablet by mouth two times a day. apixaban (ELIQUIS) 5 mg tab(s) Take 1 tablet by mouth two times a day. torsemide (DEMADEX) 20 mg tablet Take 4 tablets by mouth twice daily. allopurinol (ZYLOPRIM) 100 mg tablet Take a half tablet by mouth once daily. amoxicillin-clavulanic acid (AUGMENTIN) 500-125 mg per tablet Take 1 tablet by mouth every 8 hours. empagliflozin (JARDIANCE) 10 mg tablet Take 1 tablet by mouth once daily. metoprolol succinate ER (TOPROL XL) 25 mg 24 hr tablet Take 1 tablet by mouth twice daily. atorvastatin (LIPITOR) 80 mg tablet Take 1 tablet by mouth once daily. clopidogrel (PLAVIX) 75 mg tablet Take 1 tablet by mouth once daily. DULoxetine (CYMBALTA) 20 mg capsule Take 1 capsule by mouth once daily. gabapentin (NEURONTIN) 300 mg capsule Take 300 mg by mouth twice daily. insulin detemir U-100 (LEVEMIR FLEXPEN) 100 unit/mL (3 mL) injection pen Inject 30 Units subcutaneously every morning. insulin lispro (HUMALOG KWIKPEN) 100 unit/mL Inject 24 Units subcutaneously with MEALS. insulin needles, DISPOSABLE, (BD INSULIN PEN NEEDLE UF) 31 gauge x 5/16 Use with pen to administer insulin three times daily. REVIEW OF SYSTEMS: CONSTITUTION: Negative for: Weight loss or gain, Fever. Chills, Night sweats HEENT: Negative for: Hearing loss, Nosebleeds, Mouth sores, Trouble swallowing, Dry mouth RESPIRATORY: Negative for: Cough, Difficulty breathing GASTROINTESTINAL: Negative for: Melena, Diarrhea, Nausea, Abdominal distension, Early satiety MUSCULOSKELETAL: Positive for: Arthralgias Negative for: Myalgias NEUROLOGICAL: Negative for: Headaches, Dizziness SKIN: Negative for: Rash EYES: Negative for: Vision disturbance CARDIOVASCULAR: Negative for: Chest pain, Leg swelling, Arrhythmia, Presyncope GENITOURINARY: Negative for: Difficulty urinatiing PATIENT ENTERED DATA: No flowsheet data found. No flowsheet data found. No flowsheet data found. PHYSICAL EXAMINATION: BP 109/78 (BP Site: Left Arm, BP Position: Sitting, BP Cuff Size: Regular Adult) Pulse 64 Resp 15 Ht 180.3 cm (5' 11 ) Wt 103.4 kg (228 lb) SpO2 98% BMI 31.80 kg/m General: Well appearing, in no acute distress. Skin: No clubbing, no cyanosis. Eyes: Extra ocular movements intact Oropharynx: Teeth in good repair. Neck: No jugular venous distention, no carotid bruits, carotids have a normal upstroke, no palpable thyromegaly. Lungs: Clear to auscultation bilaterally, no wheezing or rhonchi. Heart: Regular rhythm, PMI not displaced, S1, S2 normal, no S3, no S4, no heaves, no rub and no murmur. Abdomen: Soft, nontender, bowel sounds normal, no palpable organomegaly, no bruits. Extremities: No peripheral edema . Grade 2/4 distal pulses bilaterally. Neuro: Oriented to person, place and time, alert, cooperative, gait coordinated. CARDIOVASCULAR MEDICINE TESTING: I have personally reviewed the Laboratory Testing. Last ECHO Result Conclusion ECHO Collected: 03/22/2023 9:53 AM (Final result) Impression: CONCLUSIONS: - Technically difficult exam due to suboptimal positioning and body habitus. - Exam indication: Re-evaluation of known heart failure with a change in clinical status without change in med/diet - The left ventricle is normal in size. Left ventricular systolic function is severely decreased. EF = 13 5% (2D 4-ch.) Definity contrast used for endocardial border detection. - The right ventricle is dilated. Right ventricular systolic function is moderately decreased. - The patient has not had a prior CC echocardiographic exam for comparison. * * * Final * * * Last EKG Result Conclusion ECG COMPLETE Collected: 06/16/2023 12:07 PM (Preliminary result) Impression: ATRIAL-SENSED VENTRICULAR-PACED RHYTHM WITH PREMATURE SUPRAVENTRICULAR COMPLEXES ABNORMAL ECG Latest Reference Range & Units 06/16/23 11:24 Sodium 136 - 144 mmol/L 137 Potassium 3.7 - 5.1 mmol/L 4.3 Chloride 97 - 105 mmol/L 98 CO2 22 - 30 mmol/L 25 BUN 9 - 24 mg/dL 59 (H) Creatinine 0.73 - 1.22 mg/dL 2.00 (H) Glucose 74 - 99 mg/dL 216 (H) Calcium 8.5 - 10.2 mg/dL 10.2 Anion Gap 9 - 18 mmol/L 14 eGFR >=60 mL/min/1.73m 36 (L) (H): Data is abnormally high (L): Data is abnormally low IMPRESSION: NYHA Functional Class: II Stage: C heart failure re specific medications (list current, note updates or changes, note prior intolerance): BB: Metoprolol 25mg BID ACEI/ARB/ARNI: Sacubitril-valsartan 49-51mg BID MRA: * SGLT2: Empagliflozin 10mg daily Diuretic: Torsemide 80mg BID Digoxin: * Vasodilators: * Anti-arrhythmics: * Ivabradine: * Other anti-HTN: * PLAN AND RECOMMENDATIONS: Patient is a 67 year old male who presents: Chronic HFrEF Ischemic cardiomyopathy Wide QRS s/p WINDER OPERATOR-D upgrade Type II DM CKD Healing heel ulcer AF - reverted back after cardioversion. Since his discharge, he has done extremely well. Has felt well on GDMT. Unable to titrate due to relative hypotension on home BP cuff. Will reassess labs today to see if MRA can be added. Will discuss with EP about antiarrhythmic therapy given his recurrent AF. However, he does need skin grafting for his healing heel ulcer. AF management may need to be done after so there is no interruption in AC. Recommendations: No changes to medications. Returns in September for WINDER OPERATOR-D clinic. Return in 6 months. I personally interviewed, confirmed and edited the above information as obtained by others I personally spent 30 minutes in total time involved in the management and care of this patient. We discussed natural history of disease, current treatment options, and future potential treatment options. We discussed diet, exercise, other non-medical management as above. Carolina Barger MD [facility] Section Of Heart Failure and Cardiac Transplant Medicine [facility] [place] [facility] Desk [id number] [place] [address] documented in this encounter [facility] 06-27-2023 Evaluation note Diagnosis Research IRB 22-166 [employer]- Primary documented in this encounter [facility]11-21[facility]2023 History of Present illness Narrative* Travis Sanford RN - 06/27/2023 10:45 AM EST IRB 22-166 [employer] - AN INTERNATIONAL, MULTICENTER, OBSERVATIONAL, SINGLE- ARM, BLINDED STUDY TOASSESS THE PERFORMANCE OF THE [employer] SYSTEM PI: Dr. Aba Wood Study explained/reviewed with patient and spouse. Study related follow-up requirements were discussed. Risks, benefits, alternatives, personnel, and costs of the study explained/reviewed. Patient provided informed consent for review. Study related questions were addressed. Patient declined study participation. Thanked patient and family for their time. Travis Ni RN, BSN Pager [phone] [facility] Instructions* Patient Instructions* Yannick Zuñiga PA-C - 06/27/2023 10:27 AM EST - continue the same medications - consult with dermatology - follow-up with Dr. Barger on 07/12 with labs first [facility] History of Present illness Narrative* Yannick Zuñiga PA-C - 06/27/2023 10:00 AM EST Images from the original note were not included. [facility] [place] [facility] SECTION OF HEART FAILURE and CARDIAC TRANSPLANT MEDICINE OUTPATIENT VISIT DATE June 27, 2023 OUTPATIENT VISIT TYPE Established Patient PRIMARY CARE PHYSICIAN: Jeff Cerda MD [address] [place] [address] CHIEF COMPLAINT: follow-up HISTORY OF PRESENT ILLNESS: Barak Foster is a 67 year old male hx CAD (mLAD stent with ISR and ORNAMENT SETTER distal to stent without collaterals, rPDA ORNAMENT SETTER with Lcx collaterals), ischemic HFrEF (13%) s/p single-chamber ICD, prior CVA s/p carotid revascularization, HTN, DM2, ASD s/p repair, CKD and prior LV 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. He was last seen on 04/26/23 at which time he was volume depleted: - attempt to decrease the torsemide to 60 mg twice daily - you may gain a couple of pounds with this change, but if you gain more than two pounds then add another 20 mg of torsemide - if your weight continues to go down, then we may have to decrease the torsemide even further - blood work and urinalysis today - wear a heart monitor (Zio patch J2-2) - follow-up with me in June - follow-up with Dr. Barger on 07/12 Since he was last seen, he underwent a DCCV on 06/16/23. He realized he was back in atrial fibrillation on 05/10 per the device check. He was started on Eliquis on 05/16. On 05/25, he increased the torsemide to 80 mg bid due to increased weight. He has been feeling well since he had the cardoversion. His weight has been consistent. His breathing is good. No edema. On 06/16, he went off of Augmentin x 1 week. He developed a rash on 06/16 which is itchy. He went back on Augmentin on 06/23. The rash is getting better on his thighsand calves. It is still significant on his back and arms. It is redder at his diabetic sensor. SOCIAL HISTORY ALLERGIES: ALLERGIES No Known Allergies CURRENT MEDICATIONS: apixaban (ELIQUIS) 5 mg tab(s) Take 1 tablet by mouth two times a day. torsemide (DEMADEX) 20 mg tablet Take 4 tablets by mouth twice daily. allopurinol (ZYLOPRIM) 100 mg tablet Take a half tablet by mouth once daily. amoxicillin-clavulanic acid (AUGMENTIN) 500-125 mg per tablet Take 1 tablet by mouth every 8 hours. empagliflozin (JARDIANCE) 10 mg tablet Take 1 tablet by mouth once daily. insulin detemir U-100 (LEVEMIR FLEXPEN) 100 unit/mL (3 mL) injection pen Inject 30 Units subcutaneously every morning. insulin lispro (HUMALOG KWIKPEN) 100 unit/mL Inject 24 Units subcutaneously with MEALS. metoprolol succinate ER (TOPROL XL) 25 mg 24 hr tablet Take 1 tablet by mouth twice daily. sacubitril-valsartan (ENTRESTO) 49-51 mg tablet Take 1 tablet by mouth twice daily. insulin needles, DISPOSABLE, (BD INSULIN PEN NEEDLE UF) 31 gauge x 12/20 Use with pen to administerinsulin three times daily. atorvastatin (LIPITOR) 80 mg tablet Take 1 tablet by mouth once daily. clopidogrel (PLAVIX) 75 mg tablet Take 1 tablet by mouth once daily. DULoxetine (CYMBALTA) 20 mg capsule Take 1 capsule by mouth once daily. gabapentin (NEURONTIN) 300 mg capsule Take 300 mg by mouth twice daily. REVIEW OF SYSTEMS: CONSTITUTION: Negative for: Weight loss or gain, Fever. Chills, Night sweats HEENT: Negative for: Hearing loss, Nosebleeds, Mouth sores, Trouble swallowing, Dry mouth RESPIRATORY: Negative for: Cough, Difficulty breathing GASTROINTESTINAL: Negative for: Melena, Diarrhea, Nausea, Abdominal distension, Early satiety MUSCULOSKELETAL: Positive for: Arthralgias NEUROLOGICAL: Negative for: Headaches, Dizziness SKIN: Positive for: Rash EYES: Negative for: Vision disturbance CARDIOVASCULAR: Positive for: Chest pain and Arrhythmia Negative for: Leg swelling and Pre-syncope GENITOURINARY: Negative for: Difficulty urinatiing PHYSICAL EXAMINATION: BP 102/57 Pulse 81 Ht 180.3 cm (5' 11 ) Wt 104.3 kg (230 lb) SpO2 100% BMI 32.08 kg/m Last 6 Encounter Wt Readings: Date: Wt: 06/27/2023 104.3 kg (230 lb) 06/16/2023 103.9 kg (229 lb) 04/26/2023 103.9 kg (229 lb) 03/20/2023 106.3 kg (234 lb 4.8 oz) General appearance: Alert, cooperative, pleasant, in no acute distress Head: Normocephalic, atraumatic Eyes: conjunctiva/corneas normal, PERRL Oropharynx: moist without lesions, teeth in good repair Neck: supple and no JVD Heart: without murmur, regular with occasional ectopy Lungs: clear to auscultation, without rales or wheeze, good air exchange Abdomen:soft, nondistended, nontender, no hepatosplenomegaly or masses Ext: no edema in LE bilaterally, good distal pulses, diffuse macular rash over lower back and arms CARDIOVASCULAR MEDICINE TESTING: I have personally reviewed the Laboratory Testing. Component Latest Ref Rng & Units 04/10/2023 04/11/2023 04/12/2023 04/13/2023 04/26/2023 06/16/2023 Protein, Total 6.3 - 8.0 g/dL 6.3 6.8 7.1 6.0 (L) Albumin 3.9 - 4.9 g/dL 3.2 (L) 3.7 (L) 3.9 3.2 (L) Calcium 8.5 - 10.2 mg/dL 9.2 9.4 9.6 8.7 9.8 10.2 Bilirubin, Total 0.2 - 1.3 mg/dL 0.9 1.0 1.1 0.9 Alkaline Phosphatase 38 - 113 U/L 164 (H) 173 (H) 187 (H) 162 (H) AST 14 - 40 U/L 30 36 55 (H) 42 (H) ALT 10 - 54 U/L 34 36 52 45 Glucose 74 - 99 mg/dL 145 (H) 152 (H) 139 (H) 108 (H) 100 (H) 216 (H) BUN 9 - 24 mg/dL 62 (H) 61 (H) 65 (H) 62 (H) 77 (H) 59 (H) Creatinine 0.73 - 1.22 mg/dL 2.40 (H) 2.27 (H) 2.42 (H) 2.43 (H) 2.07 (H) 2.00 (H) Sodium 136 - 144 mmol/L 128 (L) 130 (L) 132 (L) 132 (L) 135 (L) 137 Potassium 3.7 - 5.1 mmol/L 5.0 4.7 5.0 5.0 4.6 4.3 Chloride 97 - 105 mmol/L 90 (L) 90 (L) 92 (L) 94 (L) 96 (L) 98 CO2 22 - 30 mmol/L 25 27 24 25 24 25 Anion Gap 9 - 18 mmol/L 13 13 16 13 15 14 eGFR >=60 mL/min/1.73m 29 (L) 31 (L) 29 (L) 29 (L) 35 (L) 36 (L) Last ECHO Result Conclusion ECHO Collected: 03/22/2023 9:53 AM (Final result) Impression: CONCLUSIONS: - Technically difficult exam due to suboptimal positioning and body habitus. - Exam indication: Re-evaluation of known heart failure with a change in clinical status without change in med/diet - The left ventricle is normal in size. Left ventricular systolic function is severely decreased. EF = 13 5% (2D 4-ch.) Definity contrast used for endocardial border detection. - The right ventricle is dilated. Right ventricular systolic function is moderately decreased. - The patient has not had a prior CC echocardiographic exam for comparison. * * * Final * * * Last EKG Result Conclusion ECG COMPLETE Collected: 06/16/2023 12:07 PM (Preliminary result) Impression: ATRIAL-SENSED VENTRICULAR-PACED RHYTHM WITH PREMATURE SUPRAVENTRICULAR COMPLEXES ABNORMAL ECG IMPRESSION: NYHA Functional Class: II Stage: C heart failure Ischemic Cardiomyopathy / HFrEF - 03/2023: LVEF 13%, LVIDd 6.0 cm, RV moderately decreased - s/p WINDER OPERATOR-D upgrade (LBBB) 03/31/2023 - Warm and dry on exam. Feeling well since his cardioversion. Blood pressure on the low side to be able to increase the metoprolol especially since he experiences lots of fatigue. Per his , he had been on spironolactone in the past. She thinks it was stopped due to renal function. Will have Entresto remain at the same dose due to blood pressure and renal function. Heart Failure specific medications (list current, note updates or changes, note prior intolerance): BB: metoprolol succinate 25 mg bid ACEI/ARB/ARNI: Entresto 49-51 mg bid MRA: none SGLT2: Jardiance 10 mg daily Diuretic: torsemide 80 mg bid Digoxin: - Vasodilators: - Anti-arrhythmics: - Ivabradine: - Other anti-HTN: - CAD - s/p PCI to LAD 2012 - mLAD stent with ISR and ORNAMENT SETTER distal to stent without collaterals, rPDA ORNAMENT SETTER with Lcx collaterals - 03/2023: PET Viability: mild ischemia in the territory of the LAD, small scar in LAD territory - [facility] 03/28/2023: LMT normal, LAD mid ORNAMENT SETTER, ISR in mid, ORNAMENT SETTER distal to stent, LCx 50% mid, RCA diffusedisease with ORNAMENT SETTER small RPDA and ORNAMENT SETTER r-PDA - medical therapy recommended Atrial Fibrillation - s/p DCCV 06/16/23 - on apixaban PVC's - noted during admission - monitor revealed a 7.1% PVC burden Hypertension - controlled with above meds Gout - on low dose allopurinol T2DM - on insulin CKD PLAN AND RECOMMENDATIONS: - continue the same medications - consult with dermatology - follow-up with Dr. Barger on 07/12 with labs first I personally interviewed, confirmed and edited the above information as obtained by others I personally spent 45 minutes in total time involved in the management and care of this patient. Wediscussed natural history of disease, current treatment options, and future potential treatment options. We discussed diet, exercise, other non-medical management as above. Yannick Zuñiga PA-C [facility] Section Of Heart Failure and Cardiac Transplant Medicine Heart and Vascular [place] [facility] Desk [id number] [id number] documented in this encounterOhiohealth Doctors Hospital11-10-2023 History and physical note * Anamaria Ta, TAR KETTLE RUNNER.SECOND CLASS WELDER - 06/16/2023 12:00 PM EST Yrisruddy Rutherford Iam [id number] [id number] HPI: Mr. Foster is a 67 yo male with a history of CAD (mLAD stent with ISR and ORNAMENT SETTER distal to stent without collaterals, rPDA ORNAMENT SETTER with Lcx collaterals), ischemic HFrEF (13%) s/p single-chamber ICD, prior CVA s/p carotid revascularization, hypertension, DM2, ASD s/p repair, CKD, and prior LV 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.who presents today for pre-op evaluation prior to elective cardioversion scheduled for today.. O f note, patient has boot on right foot for diabetic ulcer. NPO since 11 pm last evening wit exception of sip of H2O with medications this am. Apixaban 5 mg/bid has been uninterrupted for>30 days. Patient denies any chest pain, shortness of breath, PND, orthopnea, palpitations, presyncope, syncope, dizziness, or peripheral edema. Allergies: Patient has no known allergies. Current Outpatient Medications Medication Sig apixaban (ELIQUIS) 5 mg tab(s) Take 1 tablet by mouth two times a day. torsemide (DEMADEX) 20 mg tablet Take 4 tablets by mouth twice daily. allopurinol (ZYLOPRIM) 100 mg tablet Take a half tablet by mouth once daily. amoxicillin-clavulanic acid (AUGMENTIN) 500-125 mg per tablet Take 1 tablet by mouth every 8 hours. empagliflozin (JARDIANCE) 10 mg tablet Take 1 tablet by mouth once daily. insulin detemir U-100 (LEVEMIR FLEXPEN) 100 unit/mL (3 mL) injection pen Inject 30 Units subcutaneously every morning. insulin lispro (HUMALOG KWIKPEN) 100 unit/mL Inject 24 Units subcutaneously with MEALS. metoprolol succinate ER (TOPROL XL) 25 mg 24 hr tablet Take 1 tablet by mouth twice daily. sacubitril-valsartan (ENTRESTO) 49-51 mg tablet Take 1 tablet by mouth twice daily. insulin needles, DISPOSABLE, (BD INSULIN PEN NEEDLE UF) 31 gauge x 5/16 Use with pen to administerinsulin three times daily. atorvastatin (LIPITOR) 80 mg tablet Take 1 tablet by mouth once daily. clopidogrel (PLAVIX) 75 mg tablet Take 1 tablet by mouth once daily. DULoxetine (CYMBALTA) 20 mg capsule Take 1 capsule by mouth once daily. gabapentin (NEURONTIN) 300 mg capsule Take 300 mg by mouth twice daily. No current facility-administered medications for this visit. No past surgical history on file. Review of Systems: Positive in Red HEENT: Negative for headaches, migraines, glasses, dental problems, cataracts, glaucoma, tinnitus, ear pain, hard of hearing, epistaxis or dysphagia. NECK: Negative for pain, goiter or stiffness. RESPIRATORY: Negative for pneumonia, asthma, bronchitis, TB, shortness of breath, cough, wheezing, pulmonary emboli, hemoptysis, orthopnea or PND. GASTROINTESTINAL: Negative for abdominal pain, blood in stool, PUD, GERD, change in bowel habits, indigestion, hematemesis, hemorrhoids, n/v/d/c, gallbladder disease or hiatal hernia. GENITOURINARY: Negative for dysuria, frequency, incontinence, UTI, hematuria or stones. MUSCULOSKELETAL: Negative for joint pain or swelling, muscle pain, back pain, gout or arthritis. NEUROLOGIC: Negative for CVA, TIA, seizures, dizzines, numbness or weakness. SKIN: Negative for rash, itching, skin cancer or lesions. PSYCHIATRIC: Negative for depression, nervousness, anxiety, sleep disturbance or psychosocial stressors. HEMATOLOGICAL/LYMPHATIC: Negative for prolonged bleeding, bruising easily, blood transfusions, blood clots, palpable cervical lymph nodes, cancer or anemia. ENDOCRINE: Negative for diabetes, thyroid problems, cold/heat intolerance or hyperlipemia. 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 In no acute distress. Skin: Warm, dry Eyes: No icterus Oropharnyx: Teeth in good repair. Neck: Supple, no JVD Lungs: Clear to auscultation bilaterally. Heart: Paced, no murmur Abdomen: Soft, non-tender Extremities: 1+ LE edema Neuro: Oriented x3, alert, cooperative, Studies: WINDER OPERATOR-D EVALUATION: 06/16/2023 PRESENTS FOR: AF, DCC scheduled for today. PRESENTING EGM: AF/BP UNDERLYING RHYTHM: Not fully assess, history of AV conduction. BATTERY STATUS: Estimated time remaining to SIRIA is 9 yrs. COUNTERS SINCE: 05/12/2023 ATRIAL ARRHYTHMIAS: Remains in AF since 05/09/23. Anticoagulants listed: Eliquis. VENTRICULAR ARRHYTHMIAS: Since the last remote on 06/12/2023, per the episode list, There have been no ventricular detections since the last evaluation. LEAD MEASUREMENTS: Capture and sensing tested on 05/12/23 was appropriate. The pacing outputs maintain safety margin. Review of the lead impedance trends are normal. IMPLANT SITE/ SYMPTOMS: The incision and pocket are pain-free (0/10), well healed and without signsof erosion or infection. OTHER DIAGNOSTICS: RA pacing 0% and RV pacing 83% and LV pacing 92% PROGRAMMING CHANGES MADE TODAY: None Last ECHO Result Conclusion ECHO Collected: 03/22/2023 9:53 AM (Final result) Impression: CONCLUSIONS: - Technically difficult exam due to suboptimal positioning and body habitus. - Exam indication: Re-evaluation of known heart failure with a change in clinical status without change in med/diet - The left ventricle is normal in size. Left ventricular systolic function is severely decreased. EF = 13 5% (2D 4-ch.) Definity contrast used for endocardial border detection. - The right ventricle is dilated. Right ventricular systolic function is moderately decreased. - The patient has not had a prior CC echocardiographic exam for comparison. * * * Final * * * Last EKG Result Conclusion ECG COMPLETE Collected: 06/16/2023 10:03 AM (Preliminary result) Impression: VENTRICULAR-PACED RHYTHM BIVENTRICULAR PACEMAKER DETECTED ABNORMAL ECG Blood Work: Hemoglobin (g/dL) Date Value 04/13/2023 10.4 Hematocrit (%) Date Value 04/13/2023 33.9 WBC (k/uL) Date Value 04/13/2023 6.71 Platelet Count (k/uL) Date Value 04/13/2023 242 No results found for: TG , CHOL , HDL , LDL Glucose (mg/dL) Date Value 04/26/2023 100 Potassium (mmol/L) Date Value 04/26/2023 4.6 Sodium (mmol/L) Date Value 04/26/2023 135 Chloride (mmol/L) Date Value 04/26/2023 96 CO2 (mmol/L) Date Value 04/26/2023 24 Creatinine (mg/dL) Date Value 04/26/2023 2.07 BUN (mg/dL) Date Value 04/26/2023 77 Anion Gap (mmol/L) Date Value 04/26/2023 15 Calcium, Total (mg/dL) Date Value 04/26/2023 9.8 Protein, Total (g/dL) Date Value 04/13/2023 6.0 Albumin (g/dL) Date Value 04/13/2023 3.2 Bilirubin, Total (mg/dL) Date Value 04/13/2023 0.9 Alkaline Phosphatase (U/L) Date Value 04/13/2023 162 AST (U/L) Date Value 04/13/2023 42 ALT (U/L) Date Value 04/13/2023 45 Anamaria Ta DNP, GUITAR TEACHER Desk [id number] Include [address] [facility] [address] phone [phone] fax [facility] Cardiovascular Medicine, Section of Cardiac Imaging Heart and Vascular [place] documented in this encounterOhiohealth Doctors Hospital11-09-2023 [facility] History of Present illness Narrative* Anamaria Field, CARRIE - 06/15/2023 12:44 PM EST THE FOLLOWING WAS EVALUATED Motivation To Learn: Interested Family/Significant Other Support: High - Very involved in pt care Cognitive Ability: Alert and oriented Patient Learns Best By: Verbal Instruction The Following Influencing Factors Were Barriers To This Education Session: None The Following Physical Limitations Were Barriers To This Education Session: None Instruction Provided To: Spouse Procedure: Cardioversion Pre-procedure information reviewed: Patient ID verified Procedure verified Physician verified Explanation of procedure Sedation level during procedure MD medication instructions from EP lab request: Take meds with a small sip of water. Patient's wifedenies the patient missing any doses of Eliquis in the past 3 weeks. Travel instructions/restrictions Scheduling information Possible same day discharge versus overnight hospital stay Check out time Family waiting area Physician contact with family after procedure Post Procedure Expectations reviewed: Inpatient hospital stay Post procedure antiarrhythmics and anticoagulation will be discussed with Physician, nurse practitioner or Physician assistant teacher upon discharge Instructions for transmitting EKG to Monitoring Center 3 month follow up instructions Contact number for information and questions Patient Evaluation: Verbalizes understanding Follow Up Plan: Follow up as directed by MD. Supplemental Material Given: Written Material Instructed By Anamaria Field RN. In Department of CARDIOLOGY. documented in this encounterOhiohealth Doctors Hospital11-01-2023 Miscellaneous Notes* Telephone Encounter - Sherice Camargo RN - 06/07/2023 4:56 PM EDT Called patient to explain rationale behind [facility] follow-up appointment. If needed, also recommended establishing care with Heart Failure prior to 6- month visit in [facility]. No answer, patient's mailbox full. Called patient's , no answer, message left with call back requested if questions. Sherice Camargo RN documented in this encounterOhiohealth Doctors Hospital10-18-2023 Miscellaneous Notes* Telephone Encounter - Ellie Julian RN - 05/24/2023 6:03 PM EDT Called patient to schedule for DCC in 1 month from 05-12-23. Patient decided on the date of 06-16-23. Is aware that he cannot miss any doses of Eliquis prior to date & that he needs to bring someone to drive him home. Needs EKG, OPD & Device Clinic the same day. Requests 1000 or later. * Telephone Encounter - Ellie Julian RN - 05/24/2023 6:03 PM EDT ----- Message from Chandni Vitale MD sent at 05/12/2023 3:48 PM EDT ----- Regarding: DCC Please bring in for DCC in one month. Verify apixaban. Chandni Vitale MD documented in this encounterOhiohealth Doctors Hospital10-14-2023 NoteHNO ID: [id number] Author: Note, Interface Service: ? Author Type: ? Type: Progress Notes Filed: 05/20/2023 2:18 AM Note Text: Epic Scheduled Downtime: 05/20/2023 1:00:00 AM to 05/20/2023 1:28:00 [facility]10-10-2023 Miscellaneous Notes* Telephone Encounter - Tisha Rosado RN - 05/16/2023 10:40 AM EDT Prior authorization complete. Patient aware and will fill rx. Tisha Beckman RN documented in this encounterOhiohealth Doctors Hospital09-20-2023 [facility]09-20-[facility] History of Present illness Narrative* Rosa M Davila - 04/26/2023 11:31 AM EDT EVENT MONITOR DISPOSABLE PATCH INSTRUCTIONS Patient Name: Barak Bazan [facility] Number: [id number] Skin prepped and cleansed with alcohol Patch secured to prepped area Monitor Activated Serial #: [id number] Patient Instructed: Prescribed order timeframe Bathing guidelines Usage of event button and diary documentation Return of monitor at the end of prescribed order Call with problems [phone] or [phone]. [phone] Patient expresses a good understanding of instructions Rosa M De Anda documented in this encounterOhiohealth Doctors Hospital09-20-2023 NotePar[facility]09-20-2023 Instructions* Patient Instructions* Yannick Zuñiga PA-C - 04/26/2023 10:26 AM EDT - attempt to decrease the torsemide to 60 mg twice daily - you may gain a couple of pounds with this change, but if you gain more than two pounds then add another 20 mg of torsemide - if your weight continues to go down, then we may have to decrease the torsemide even further - blood work and urinalysis today - wear a heart monitor (Zio patch J2-2) - follow-up with me in June - follow-up with Dr. Barger on 07/12 documented in this encounterOhiohealth Doctors Hospital09-20-2023 History of Present illness Narrative* Yannick Zuñiga PA-C - 04/26/2023 9:13 AM EDT Images from the original note were not included. Heart and Vascular [place] [facility] SECTION OF HEART FAILURE and CARDIAC TRANSPLANT MEDICINE OUTPATIENT VISIT DATE April 26, 2023 OUTPATIENT VISIT TYPE Established Patient PRIMARY CARE PHYSICIAN: Franck Terrell II, MD [address] [place] [address] CHIEF COMPLAINT: hospital follow-up HISTORY OF PRESENT ILLNESS: Barak Foster is a 67 year old male hx CAD (mLAD stent with ISR and ORNAMENT SETTER distal to stent without collaterals, rPDA ORNAMENT SETTER with Lcx collaterals), ischemic HFrEF (13%) s/p single-chamber ICD, prior CVA s/p carotid revascularization, HTN, DM2, ASD s/p repair, CKD and prior LV 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. He was admitted from 03/20 to 04/13 with ADHF: Pt was initially admitted to the clinical cardiology service for ADHF. He was noted to have a wide QRS with LBBB morphology so EP was consulted and he underwent device upgrade to WINDER OPERATOR-D. Thereafter hewas diuresed and transitioned to torsemide 80 BID at discharge. He was noted to have frequent PVCs resulting in reduced biV pacing but we were not able to get an inpatient holter prior to discharge, so this will need to be completed in the outpatient setting. He will follow up with Dr. Barger. He has been feeling pretty good since his discharge. Stamina is better. Breathing is better. His weight has been going down. Discharge weight 233.2 lbs and today's weight 226.5 lb. Maintaining a strict diet with sodium and fluid. He is able to walk around without and dyspnea. He denies any paroxysmal nocturnal dyspnea or orthopnea. No edema. BP around 108/73 at home. ALLERGIES: ALLERGIES No Known Allergies CURRENT MEDICATIONS: allopurinol (ZYLOPRIM) 100 mg tablet Take a half tablet by mouth once daily. amoxicillin-clavulanic acid (AUGMENTIN) 500-125 mg per tablet Take 1 tablet by mouth every 8 hours. empagliflozin (JARDIANCE) 10 mg tablet Take 1 tablet by mouth once daily. insulin detemir U-100 (LEVEMIR FLEXPEN) 100 unit/mL (3 mL) injection pen Inject 30 Units subcutaneously every morning. insulin lispro (HUMALOG KWIKPEN) 100 unit/mL Inject 24 Units subcutaneously with MEALS. metoprolol succinate ER (TOPROL XL) 25 mg 24 hr tablet Take 1 tablet by mouth twice daily. sacubitril-valsartan (ENTRESTO) 49-51 mg tablet Take 1 tablet by mouth twice daily. torsemide (DEMADEX) 20 mg tablet Take 4 tablets by mouth twice daily. insulin needles, DISPOSABLE, (BD INSULIN PEN NEEDLE UF) 31 gauge x 5/16 Use with pen to administerinsulin three times daily. atorvastatin (LIPITOR) 80 mg tablet Take 1 tablet by mouth once daily. clopidogrel (PLAVIX) 75 mg tablet Take 1 tablet by mouth once daily. DULoxetine (CYMBALTA) 20 mg capsule Take 1 capsule by mouth once daily. gabapentin (NEURONTIN) 300 mg capsule Take 300 mg by mouth twice daily. REVIEW OF SYSTEMS: CONSTITUTION: Negative for: Weight loss or gain, Fever. Chills, Night sweats HEENT: Positive for: Hearing loss RESPIRATORY: Negative for: Cough, Difficulty breathing GASTROINTESTINAL: Negative for: Melena, Diarrhea, Nausea, Abdominal distension, Early satiety MUSCULOSKELETAL: Negative for: Arthralgias, Myalgias NEUROLOGICAL: Negative for: Headaches, Dizziness SKIN: Negative for: Rash EYES: Negative for: Vision disturbance CARDIOVASCULAR: Negative for: Chest pain, Leg swelling, Arrhythmia, Presyncope GENITOURINARY: Positive for: Difficulty urinating PHYSICAL EXAMINATION: BP 122/71 Pulse 84 Ht 180.3 cm (5' 11 ) Wt 103.9 kg (229 lb) SpO2 100% BMI 31.94 kg/m Date: Wt: 04/26/2023 103.9 kg (229 lb) 03/20/2023 106.3 kg (234 lb 4.8 oz) General appearance: Alert, cooperative, pleasant, in no acute distress Head: Normocephalic, atraumatic Eyes: conjunctiva/corneas normal, PERRL Oropharynx: moist without lesions, teeth in good repair Neck: supple and no JVD Heart: without murmur, regular with frequent ectopy Lungs: clear to auscultation, without rales or wheeze, good air exchange Abdomen:soft, nondistended, nontender, no hepatosplenomegaly or masses Ext: trace LE edema, good distal pulses CARDIOVASCULAR MEDICINE TESTING: I have personally reviewed the Laboratory Testing. Last ECHO Result Conclusion ECHO Collected: 03/22/2023 9:53 AM (Final result) Impression: CONCLUSIONS: - Technically difficult exam due to suboptimal positioning and body habitus. - Exam indication: Re-evaluation of known heart failure with a change in clinical status without change in med/diet - The left ventricle is normal in size. Left ventricular systolic function is severely decreased. EF = 13 5% (2D 4-ch.) Definity contrast used for endocardial border detection. - The right ventricle is dilated. Right ventricular systolic function is moderately decreased. - The patient has not had a prior CC echocardiographic exam for comparison. * * * Final * * * Last EKG Result Conclusion ECG COMPLETE Collected: 04/05/2023 10:08 AM (Preliminary result) Impression: VENTRICULAR-PACED RHYTHM WITH OCCASIONAL SINUS COMPLEXES ABNORMAL ECG IMPRESSION: NYHA Functional Class: II Stage: C heart failure Ischemic Cardiomyopathy / HFrEF - 03/2023: LVEF 13%, LVIDd 6.0 cm, RV moderately decreased - s/p WINDER OPERATOR-D upgrade (LBBB) 03/31/2023 - Warm and dry on exam. Feeling much better. Weight has been steadily decreasing. Will have him attempt to decrease the torsemide. Due to lower blood pressure readings at home, will hold off increasing the metoprolol. He has been experiencing dysuria. Will get a UA and consider stopping Jardiance if positive. Heart Failure specific medications (list current, note updates or changes, note prior intolerance): BB: metoprolol succinate 25 mg bid ACEI/ARB/ARNI: Entresto 49-51 mg bid MRA: none SGLT2: Jardiance 10 mg daily Diuretic: torsemide 80 mg bid -> reduce to 60 mg bid today Digoxin: - Vasodilators: - Anti-arrhythmics: - Ivabradine: - Other anti-HTN: - CAD - s/p PCI to LAD 2012 - mLAD stent with ISR and ORNAMENT SETTER distal to stent without collaterals, rPDA ORNAMENT SETTER with Lcx collaterals - 03/2023: PET Viability: mild ischemia in the territory of the LAD, small scar in LAD territory - [facility] 03/28/2023: LMT normal, LAD mid ORNAMENT SETTER, ISR in mid, ORNAMENT SETTER distal to stent, LCx 50% mid, RCA diffusedisease with ORNAMENT SETTER small RPDA and ORNAMENT SETTER r-PDA - medical therapy recommended PVC's - noted during admission - will get a monitor to assess abundance of PVC's Hypertension - controlled with above meds Gout - on low dose allopurinol T2DM - on insulin CKD PLAN AND RECOMMENDATIONS: - attempt to decrease the torsemide to 60 mg twice daily - you may gain a couple of pounds with this change, but if you gain more than two pounds then add another 20 mg of torsemide - if your weight continues to go down, then we may have to decrease the torsemide even further - blood work and urinalysis today - wear a heart monitor (Zio patch J2-2) - follow-up with me in June - follow-up with Dr. Barger on 07/12 I personally interviewed, confirmed and edited the above information as obtained by others I personally spent 45 minutes in total time involved in the management and care of this patient. Wediscussed natural history of disease, current treatment options, and future potential treatment options. We discussed diet, exercise, other non-medical management as above. Yannick Monteiro [place] [facility] Section Of Heart Failure and Cardiac Transplant Medicine Heart and Vascular [place] [facility] Desk [id number] [place], [place] [address] ADDENDUM Component Latest Ref Rng & Units 03/20/2023 04/04/2023 04/10/2023 04/12/2023 04/26/2023 Protein, Total 6.3 - 8.0 g/dL 6.4 6.1 (L) 6.3 7.1 Albumin 3.9 - 4.9 g/dL 3.6 (L) 3.0 (L) 3.2 (L) 3.9 Calcium 8.5 - 10.2 mg/dL 9.6 8.8 9.2 9.6 9.8 Bilirubin, Total 0.2 - 1.3 mg/dL 2.2 (H) 1.0 0.9 1.1 Alkaline Phosphatase 38 - 113 U/L 159 (H) 128 (H) 164 (H) 187 (H) AST 14 - 40 U/L 19 26 30 55 (H) ALT 10 - 54 U/L 17 16 34 52 Glucose 74 - 99 mg/dL 133 (H) 159 (H) 145 (H) 139 (H) 100 (H) BUN 9 - 24 mg/dL 53 (H) 47 (H) 62 (H) 65 (H) 77 (H) Creatinine 0.73 - 1.22 mg/dL 2.11 (H) 2.00 (H) 2.40 (H) 2.42 (H) 2.07 (H) Sodium 136 - 144 mmol/L 134 (L) 128 (L) 128 (L) 132 (L) 135 (L) Potassium 3.7 - 5.1 mmol/L 4.6 4.2 5.0 5.0 4.6 Chloride 97 - 105 mmol/L 96 (L) 95 (L) 90 (L) 92 (L) 96 (L) CO2 22 - 30 mmol/L 26 22 25 24 24 Anion Gap 9 - 18 mmol/L 12 11 13 16 15 eGFR >=60 mL/min/1.73m 34 (L) 36 (L) 29 (L) 29 (L) 35 (L) NT Pro BNP <125 pg/mL 8,423 (H) 5,065 (H) 5,066 (H) 6,843 (H) documented in this encounterOhiohealth Doctors Hospital09-13-2023 Miscellaneous Notes* Telephone Encounter - Zeina Roca RN - 04/19/2023 12:53 PM EDT Registered Nurse: Zeina Roca Date: 04/19/23 Time: 12:54pm Call Outcome: All clear Call Day: 6 Summary: We are calling to check on how you are doing since our last phone call. Are you having any medical concerns we can help you with today? No Zeina Roca RN pts Name & verified documented in this encounterOhiohealth Doctors Hospital09-08-2023 Miscellaneous Notes* Telephone Encounter - Madina Kenney RN - 04/14/2023 5:49 PM EDT Received call back from Allan Oliva with Clinical Cards who advised holding the insulin for blood sugar less than 110. He also suggested I attempt to call Endocrinology fabrication welder for a scale /parameters. Received call back from Zulema Daniel (pgr. [id number]), who happened to be aware of patient from hospitalization. He advised decreasing the meal time insulin doses from 24 units to 20 units. He also offered that if patient was only eating 50 percent of meal or less, to decrease dose by 50 percent to 10 units.If low blood sugars persisted, they were to call back. Attempted to call back with this information, and I received voicemail and left the resource center number to call back. Madina Kenney RN [facility] * Telephone Encounter - Madina Kenney RN - 04/14/2023 3:21 PM EDT [facility] Contact Center Inbound Phone Encounter DATE of SERVICE: 04/14/2023 TIME of SERVICE: 3:21 PM Status: Non-urgent, needs attention Service/Provider: Clinical Cardiology Kristine Chang MD Reason for call: Other Issue, blood glucose parameters Contact information: [phone] Resolution: Sent to [facility], paged high priority Comments: Received call from with concerns about lunchtime blood glucose of 69. She held the meal time insulin, gave orange juice, patient ate, and called us for clarification of when to hold, as 69 is lower than he has been. I do not see any parameters listed on the Med orders. Patient was asymptomatic at the time, but would like to know for the future. Madina Kenney RN, [facility] Resource Center Date of Resolution: 04/14/2023 Time of Resolution 3:21 PM documented in this encounterOhiohealth Doctors Hospital09-08-2023 Miscellaneous Notes* Telephone Encounter - Cain Higginbotham RN - 04/14/2023 12:39 PM EDT POST DISCHARGE SURVEY 1. Have you noticed any increase in shortness of breath since you left the hospital? NO 2. Have you noticed any increased swelling in your feet, ankles, or stomach? Skip for vascular pts NO 3. Have you gained more than 2-3 pounds since discharge? Skip for vascular & EP pts NO 4. Have you noticed any change in your incision or wound since you were discharged as we want you to be aware of any signs of infection? NO 5. Are you having any increased pain since discharge? NO If yes: What type of pain and where? (pressure, sharp pain, dull pain, etc.) 6. Have you had any unplanned trips to the emergency department or hospital since you were discharged? NO If yes - why? Do you have any questions about your medications? 7. Did you fill all of the prescribed medications? YES If no, do you need help filling your prescription? (targeting the why? the prescriptions were not filled) 8. Do you have any questions about how to take your medications? YES, Hansa, patient needs clarification if should still give 24units with meals if current glucose is 69. Will hold off administering until speaks with cardiac nurse. 9. Do you have a doctor s appointment scheduled or is someone working on getting you a follow-up appointment? YES Patient contacted - post discharge survey completed - closing statement given. Routed message to [facility] Patient verified name and date of . Cain Higginbotham RN documented in this encounterOhiohealth Doctors Hospital09-08-2023 NoteParma [facility]-08-[facility] History of Present illness Narrative* Mikael Henry, [facility] - 04/14/2023 9:45 AM EDT TRANSITION CARE MANAGEMENT (TCM) HEART FAILURE PHARMACY CONTACT Provider Action/FYI: TCM Medication Reconciliation completed for patient. See medication list table below for details. ACTION REQUIRED: Patient counseled on transferring active eRX from [facility] pharmacy to local pharmacy after initial fills via bedside delivery pharmacy service. Patient will also need refills on medications at follow up Cardio appts/PCP -route to follow up Cardio provider to ensure refills are issued at appt Patient reportedly had a pre-meal BG of 69 and did not give 24 units of Humalog (dosing plan at discharge for 24 units TID). Patient awaiting call back from Cardiac nurse for further instruction (separate encounter). Noted inpatient plan for BG<70 was to notify provider. Patient has orange juiceat home for low BG. Patient also counseled on purchasing OTC glucose tablets/glucose gel prn hypogly cemia - route to follow up Cardio provider as FYI Of note, patient was reportedly verbally told to stop taking metformin at discharge. Metformin was reportedly manually crossed off in patient's AVS med list. Encouraged to follow up with PCP, marked not taking in the interim route to follow up Cardio provider as FYI Patient Workup: HF medication classes present on medication list: LETTY/ARB/ARNI YES - sacubitril-valsartan Beta alexa YES - metoprolol succinate ER Aldosterone antagonist NO SGLT2i YES - empagliflozin Hydralazine/Isosorbide NO Ivabradine NO Loop diuretics YES - torsemide Digoxin NO New HF medication class(es) added this admission: Yes, entresto (Patient to be counseled on new medications if full medication review completed) Last documented LVEF: LV Ejection Fraction (%) Date Value 03/22/2023 13 Last documented weight: Last Wt 04/13/23 106.3 kg (234 lb 4.8 oz) Patient was sent a message via [employer] including the link to the [facility] Heart Failure education video: N/A-mychart not active Initial contact with patient post discharge, spoke to spouse, Leann,, and verified that any applicable caregiver is active in patient's medical care. Patient identified by name and . Summary: -Pt discharged from [facility] on 04/13/23. -Medication review done Full medication review completed Patient Concerns: Review and discussion of medications with spouse, Leann, as outlined in medication table below. Source of medication information obtained from Medication list. Dispense records from pharmacy also utilized to obtain additional medication fill history. Pt filled via [facility] bedside delivery pharmacy team prior to discharge. See blue box for concerns No additional reported medication questions or concernsat this time. ROS: ROS/additional sections of this note were not assessed due to: contacted by RN today Red flag symptom(s) identified during call: No VITALS and WEIGHT HOME MONITORING: Patient does have BP monitor at home, most recent home BP/HR: N/A. Patient took meds this A.M. Patient does have scale at home, most recent home weight: N/A. History of Present Illness: The following content has been copied and pasted from patient's discharge summary. If discharge summary unavailable, After Visit Summary or last pertinent inpatient notes are copied and pasted. The Reason I was in the Hospital/Main Diagnosis: Acute Decompensated Heart Failure due to your ICD malfunctioning Other Problem(s)/Diagnosis: Principal Problem: Heart failure (HCC) Active Problems: Coronary artery 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 Chronic systolic HF (heart failure) (HCC) Cardiac resynchronization therapy defibrillator (WINDER OPERATOR-D) in place Cardiomyopathy, ischemic Lower limb ulcer, heel or midfoot, right, with fat layer exposed (HCC) Obesity, Class II, BMI 35-39.9 Diabetic foot infection (HCC) Resolved Problems: * No resolved hospital problems. 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 on pharmacy dispense recordswith recent fill hx Patient reportedly taking as prescribed without any issues Discontinued: 04/13/2023 10:02 AM D/c BOREMATIC MACHINE OPERATOR Metoprolol prescribed at discharge Reviewed d/c clopidogrel (PLAVIX) 75 mg tablet Take 1 tablet by mouth once daily. on pharmacy dispense records with recent fill hx Patient reportedly taking as prescribed without any issues Discontinued: 04/06/2023 8:53 AM Medication discontinued prior to admission (not specifically reflected to discontinue in patient's AVS) DULoxetine (CYMBALTA) 20 mg capsule Take 1 capsule by mouth once daily. 30mg on pharmacy dispense records with recent fill hx Was floating back and forth between 20mg and 30mg BOREMATIC MACHINE OPERATOR for last 6 months- has PCP appt upcoming - currently at 20mg Patient reportedly taking as prescribed without any issues empagliflozin (JARDIANCE) 10 mg tablet Take 1 tablet by mouth once daily. Pick these up at [facility] on pharmacy dispense records with recent fill hx Patient reportedly taking as prescribed without any issues Reviewed Discontinued: 04/06/2023 8:53 AM Medication discontinued prior to admission (not specifically reflected to discontinue in patient's AVS) gabapentin (NEURONTIN) 300 mg capsule Take 300 mg by mouth twice daily. on pharmacy dispense records with recent fill hx Patient reportedly taking as prescribed without any issues Discontinued: 04/13/2023 10:02 AM D/c BOREMATIC MACHINE OPERATOR Reviewed d/c insulin detemir U-100 (LEVEMIR FLEXPEN) 100 unit/mL (3 mL) injection pen Inject 30 Units subcutaneously every morning. Pick these up at [facility] on pharmacy dispense records with recent fill hx Patient reportedly taking as prescribed without any issues Replaces lantus Discontinued: 04/13/2023 10:02 AM D/c BOREMATIC MACHINE OPERATOR Levemir prescribed at discharge Reviewed d/c insulin lispro (HUMALOG KWIKPEN) 100 unit/mL Inject 24 Units subcutaneously with MEALS. Pick these up at [facility] on pharmacy dispense records with recent fill hx Patient reportedly taking as prescribed without any issues BG at lunch as 69 before the meal - already inquired with nurse prior to this call Reviewed inpatient admin instructions for BG < 70 was to contact provider See blue box Has OJ at home Counseled can get OTC glucose tablets or gel Follow up with nurse recommended- awaiting call back Encouraged to keep logs to bring to appts- may need dose adjusted in future Patient's spouse verbalized understanding, agreeable to plan Route to cardio insulin needles, DISPOSABLE, (BD INSULIN PEN NEEDLE UF) 31 gauge x 5/16 Use with pen to administerinsulin three times daily. Pick these up at [facility] on pharmacy dispense records with recent fill hx Has metFORMIN (GLUCOPHAGE) 850 mg tablet Take 850 mg by mouth twice daily with meals. on pharmacy dispense records with recent fill hx Marked off on sheet on page 6 on AVS med list- reportedly told verbally to not take metformin anymore at discharge Hemoglobin A1C (%) Date Value 03/21/2023 7.2 ) Gavin not taking Encouraged spouse to follow up with PCP at appt to determine plan Patient's spouse verbalized understanding, agreeable to plan metoprolol succinate ER (TOPROL XL) 25 mg 24 hr tablet Take 1 tablet by mouth twice daily. Pick these up at [facility] on pharmacy dispense records with recent fill hx Patient reportedly taking as prescribed without any issues Replaces coreg sacubitril-valsartan (ENTRESTO) 49-51 mg tablet Take 1 tablet by mouth twice daily. ARNI Actions: This medication is used instead of an LETTY I or ARB. the affects are similar, but thismedication may offer other benefits ARNI Side effects: Low blood pressure. Check your blood pressure at home. Dizziness. Take separately from other medications that cause dizziness. Get up more slowly from lying or seated position. Kidney problems. Tested by blood tests; check how often to get tested. ? Serum potassium. Tested by blood tests; check how often to get tested. Swelling in lips or throat. Occurs rarely, but if it does, seek medical attention immediately. defects/ . Take proper control measures; inform your doctor or nurse immediately if you become . [facility] dispense records with recent fill hx Entresto was previously on active med list BOREMATIC MACHINE OPERATOR Patient reportedly taking as prescribed without any issues Confrimed was on before Discontinued: 04/13/2023 10:02 AM D/c BOREMATIC MACHINE OPERATOR Reviewed d/c torsemide (DEMADEX) 20 mg tablet Take 4 tablets by mouth twice daily. [facility] on [facility] dispense records with recent fill hx Patient reportedly taking as prescribed without any issues Can move up second dose earlier in day prn Has scale Discontinued: 04/13/2023 10:02 AM BOREMATIC MACHINE OPERATOR dosing Discontinued: 04/13/2023 10:02 AM D/c BOREMATIC MACHINE OPERATOR Reviewed d/c Preferred pharmacy: e- [facility]/pharmacy #[id number] [phone] [place] [id number] [place] [id number] [facility] [address] [place] [id number] Estimated Creatinine Clearance: 37 mL/min (A) (based on SCr of 2.43 mg/dL (H)). Estimated Glomerular Filtration Rate (mL/min/1.73m ) Date Value 04/13/2023 29 (L) Additional follow up: Next 5 Appointments Date and Time Provider Department Dept Phone 04/26/2023 10:00 AM Yannick Zuñiga D [facility] [phone] 05/12/2023 9:45 AM DEVICE CLINIC [facility] [phone] 07/12/2023 11:15 AM Nurse Saroj Romero Chf; Davin Bargermarleny [facility] [phone] Interventions Made: Patient education/Medication counseling, Adherence counseling, and AVS medication list discrepancy Pharmacist Recommendations Made Lab request/Therapeutic drug monitoring Care Coordination: Escalated to specialist provider Time spent on patient: 45-60 minutes MIKAEL HENRY, PHARMACIST, [facility] Pharmacy Transitional Care Management April 14, 2023 3:52 PM documented in this encounterOhiohealth Doctors Hospital09-07-2023 NotePar[facility]09-07-2023 NotePar[facility]09-07-2023 NotePar[facility]09-06-2023 NotePar[facility]09-05-2023 Note [facility]09-04-2023 NotePar[facility]09-04-2023 NotePar[facility]09-03-2023 NotePar[facility] 04-08-2023 NotePar[facility]09-01-2023 NotePar[facility]08-31-2023 NotePar[facility]08-30-2023 NotePar[facility]08-30-2023 NotePar[facility]08-30-2023 Note [facility]-29-2023 NotePar[facility]08-28-2023 NotePar[facility]08-27-2023 NotePar[facility] 04-01-2023 NotePar[facility]08-25-2023 NotePar[facility]08-25-2023 NotePar[facility]08-24-2023 NotePar[facility]08-23-2023 NotePar[facility]08-22-2023 Note [facility]-21-2023 NotePar[facility]08-20-2023 NotePar[facility]08-19-2023 NotePar[facility] 03-24-2023 NotePar[facility] Hospital08-17-2023 NotePar[facility]08-17-2023 NotePar[facility]08-17-2023 NotePar[facility] Hospital08-16-2023 NotePar[facility]08-15-2023 Note [facility]-14-2023 NotePar[facility] Hospital08-14-2023 NotePar[facility]05-31-2023 History of Present illness Narrative* Rogerio Bazan Allyn, [facility] - 01/04/2023 8:00 AM EDT [facility] Medication Management ANTICOAGULATION Referring Provider: Dr Ayde Nicole GOAL INR: 2.0-3.0 TODAY'S INR: 3.1 WARFARIN Dosage: 1.25 mg x 1 (01/05), then resume 1.25 mg WSa, 2.5 mg all other days of the week INR (no units) Date Value 01/04/2023 3.1 11/23/2022 2.4 10/26/2022 3.1 09/21/2022 2.3 08/24/2022 3.2 07/27/2022 3.9 06/29/2022 3 Hemoglobin Date Value Ref Range Status 02/22/2022 12.9 (L) 13.5 - 17.5 g/dL Final Hematocrit Date Value Ref Range Status 02/22/2022 38.3 (L) 41 - 53 % Final ALT Date Value Ref Range Status 02/22/2022 18 5 - 41 U/L Final AST Date Value Ref Range Status 02/22/2022 16 <40 U/L Final Medication changes: colchicine 0.6 mg BID and Prednisone 50 mg QD x 5 Notes: Fingerstick INR drawn per clinic protocol. Patient states no visible blood in urine, no black tarry stool, no falls. Denies any missed or extra doses of warfarin. Went to [facility] for gout flare-up, was given colchicine 0.6 mg BID and Prednisone 50 mg QD x 5. Only took 2 days of prednisone and then stopped because it spiked his blood sugar. Now taking Colchicine 0.6 mg QD. No change in other maintenance medications or in diet. Slightly supratherapeutic INR today so will have him take 1.25 mg tomorrow (already took today's dose) and then resume his previous dosing of 1.25 mg WSa, 2.5mg all other days of the week. Will recheck INR in 6 weeks. Patient acknowledges working in consultagreement with pharmacist as referred by his/her physician. For Pharmacy Admin Tracking Only Intervention Detail: Adherence Monitorin and Dose Adjustment: 1, reason: Therapy Optimization Total # of Interventions Recommended: 2 Total # of Interventions Accepted: 2 Time Spent (min): 20 Rogerio Gruber PharmD 01/04/2023 8:23 AM documented in this encounterCARILION ROANOKE MEMORIAL HOSPITALSkySQL Work Phone: 1(683) 792-126305-31-2023 Hospital Discharge instructions* Patient Instructions* Rogerio Gruber RPH - 01/04/2023 8:00 AM EDT Continue current dose of warfarin as instructed on dosing calendar provided. Continue to monitor urine and stool for signs and symptoms of bleeding. Please notify the clinic of any medication changes. Kindly notify the clinic if you are unable to make to your next appointment. Please remember to bring all medications (both prescription and OTC) to your next visit. documented in this encounterCARILION ROANOKE MEMORIAL HOSPITALCOPsync Phone: 1(270) 359-943604-19-2023 History of Present illness Narrative* Rogerio Gruber RPH - 11/23/2022 8:00 AM EDT [facility] Medication Management ANTICOAGULATION Referring Provider: Dr Nciole GOAL INR: 2.0-3.0 TODAY'S INR: 2.4 WARFARIN Dosage: Continue 1.25 mg WSa, 2.5 mg all other days of the week INR (no units) Date Value 11/23/2022 2.4 10/26/2022 3.1 09/21/2022 2.3 08/24/2022 3.2 07/27/2022 3.9 06/29/2022 3 06/01/2022 4.2 Hemoglobin Date Value Ref Range Status 02/22/2022 12.9 (L) 13.5 - 17.5 g/dL Final Hematocrit Date Value Ref Range Status 02/22/2022 38.3 (L) 41 - 53 % Final ALT Date Value Ref Range Status 02/22/2022 18 5 - 41 U/L Final AST Date Value Ref Range Status 02/22/2022 16 <40 U/L Final Medication changes: Taking more Tylenol currently (~3000 mg/day) for thumb pain Notes: Fingerstick INR drawn per clinic protocol. Patient states no visible blood in urine, no black tarry stool, no falls. Denies any missed or extra doses of warfarin. Taking more Tylenol currently(~3000 mg/day) for thumb pain but no changes in other maintenance medications or in diet. Therapeutic INR so will continue current dosing ans will recheck INR in 6 weeks. Patient acknowledges workingin consult agreement with pharmacist as referred by his/her physician. For Pharmacy Admin Tracking Only Intervention Detail: Adherence Monitorin Total # of Interventions Recommended: 1 Total # of Interventions Accepted: 1 Time Spent (min): 20 Rogerio Gruber PharmD 11/23/2022 8:09 AM documented in this encounterSOU[facility] Work Phone: [phone]) 446-216204-19-2023 Hospital Discharge instructions* Patient Instructions* Rogerio Gruber RPH - 11/23/2022 8:00 AM EDT Continue current dose of warfarin as instructed on dosing calendar provided. Continue to monitor urine and stool for signs and symptoms of bleeding. Please notify the clinic of any medication changes. Kindly notify the clinic if you are unable to make to your next appointment. Please remember to bring all medications (both prescription and OTC) to your next visit. documented [facility] [employer] Phone: 1(361) 339-336303-22-2023 History of Present illness Narrative* Rogerio Gruber RPH - 10/26/2022 8:00 AM EDT [facility] Medication Management ANTICOAGULATION Referring Provider: Dr Vigesaa GOAL INR: 2.0-3.0 TODAY'S INR: 3.1 WARFARIN Dosage: 2.5 mg x 1 (what he took this morning), 1.25 mg x 1, then resume 1.25 mg WSa, 2.5 mg all other days of the week INR (no units) Date Value 10/26/2022 3.1 09/21/2022 2.3 08/24/2022 3.2 07/27/2022 3.9 06/29/2022 3 06/01/2022 4.2 04/27/2022 2 Medication changes: Bactrim DS BID 10/17/22-10/27/22 (Dr adjusted warfarin dose as indicated on dosing calendar) Notes: Fingerstick INR drawn per clinic protocol. Patient states no visible blood in urine, no black tarry stool and no falls. Denies any missed or extra doses of warfarin other than what his MD toldhim to do. He was started on Bactrim DS BID on 10/17/22-10/27/[address] adjusted his warfarin dose as indicated on dosing calendar. No change in other maintenance medications or in diet. Despite empiric dose adjustment on warfarin, his INR still increased to upper end of goal. He already took 2.5mg this morning prior to his appointment so will have him take 1.25 mg tomorrow and then resume hisprevious dosing. Will recheck INR in 4 weeks. Patient acknowledges working in consult agreement with pharmacist as referred by his/her physician. For Pharmacy Admin Tracking Only Intervention Detail: Adherence Monitorin and Dose Adjustment: 1, reason: Therapy Optimization Total # of Interventions Recommended: 2 Total # of Interventions Accepted: 2 Time Spent (min): 20 Rogerio Gruber PharmD 10/26/2022 9:35 AM documented in this encounterBON [employer] Phone: 1([phone] Hospital Discharge instructions* Patient Instructions* Rogerio Gruber RPH - 10/26/2022 8:00 AM EDT Continue current dose of warfarin as instructed on dosing calendar provided. Continue to monitor urine and stool for signs and symptoms of bleeding. Please notify the clinic of any medication changes. Kindly notify the clinic if you are unable to make to your next appointment. Please remember to bring all medications (both prescription and OTC) to your next visit. documented in this encounterCAR[facility] Phone: [phone]) [phone] History of Present illness Narrative* Rogerio Gruber RPH - 09/21/2022 8:00 AM EST [facility] Medication Management ANTICOAGULATION Referring Provider: Dr Nicole GOAL INR: 2.0-3.0 TODAY'S INR: 2.3 WARFARIN Dosage: Continue 1.25 mg WSa, 2.5 mg all other days of the week INR (no units) Date Value 09/21/2022 2.3 08/24/2022 3.2 07/27/2022 3.9 06/29/2022 3 06/01/2022 4.2 04/27/2022 2 03/30/2022 2.3 Medication changes: None Notes: Fingerstick INR drawn per clinic protocol. Patient states no visible blood in urine and no black tarry stool. No falls. Denies any missed or extra doses of warfarin. No change in maintenance medications or in diet. Therapeutic INR achieved so no dosage adjustment necessary. Will recheck INR in 5 weeks. Patient acknowledges working in consult agreement with pharmacist as referred by his/herphysician. For Pharmacy Admin Tracking Only Intervention Detail: Adherence Monitorin Total # of Interventions Recommended: 1 Total # of Interventions Accepted: 1 Time Spent (min): 20 Rogerio Gruber PharmD 09/21/2022 8:07 AM documented in this encounterCARIL[facility] Phone: 1([phone] Hospital Discharge instructions* Patient Instructions* Rogerio Gruber RPH - 09/21/2022 8:00 AM EST Continue current dose of warfarin as instructed on dosing calendar provided. Continue to monitor urine and stool for signs and symptoms of bleeding. Please notify the clinic of any medication changes. Kindly notify the clinic if you are unable to make to your next appointment. documented in this encounterBON [facility]ERSocial[facility] Work Phone: 1(147) 727-432201-21-2023 Evaluation + Plan note* Assessment & Plan Note - Shahab Buckley MD - 08/27/2022 8:24 AM ESTAssociated Problem(s): Left carotid stenosis The patient has left carotid stenosis. I reviewed the carotid duplex the and I would estimate that the patient has approximately a 50 to 69% stenosis. By velocity criteria the stenosis is less than 50%. The waveform distal to the acoustical shadow suggests factors of turbulence from a hemodynamically significant stenosis. Plan: 1. I reminded the patient of signs and symptoms of transient ischemic attacks and asked him to callus immediately should they occur. If the symptoms last more than 5 minutes the patient should seek attention at our [facility] emergency room for neuro rescue. I explained the 3-hour window. I gave the patient a handout with the signs and symptoms of transient ischemic attacks. 2. The patient is utilizing dual antiplatelet therapy and high intensity statin therapy. With control of his diabetes his risk factor modification has been maximized. 3. We will follow the patient up in 1 year with carotid duplex sonography and a clinical visit. [id number] Miscellaneous Notes* Assessment & Plan Note - Shahab Buckley MD - 08/27/2022 8:24 AM ESTAssociated Problem(s): Left carotid stenosis The patient has left carotid stenosis. I reviewed the carotid duplex the and I would estimate that the patient has approximately a 50 to 69% stenosis. By velocity criteria the stenosis is less than 50%. The waveform distal to the acoustical shadow suggests factors of turbulence from a hemodynamically significant stenosis. Plan: 1. I reminded the patient of signs and symptoms of transient ischemic attacks and asked him to callus immediately should they occur. If the symptoms last more than 5 minutes the patient should seek attention at our [facility] emergency room for neuro rescue. I explained the 3-hour window. I gave the patient a handout with the signs and symptoms of transient ischemic attacks. 2. The patient is utilizing dual antiplatelet therapy and high intensity statin therapy. With control of his diabetes his risk factor modification has been maximized. 3. We will follow the patient up in 1 year with carotid duplex sonography and a clinical visit. documented in this [id number] History of Present illness Narrative* Shahab Buckley MD - 08/27/2022 8:21 AM EST Assessment No problem-specific Assessment & Plan notes found for this encounter. Barak Foster 1955 66 y.o. male who presents to the office in followup of his right transcarotid arterial revascularization for symptomatic carotid occlusive disease. Patient is now approximately 7 months status post the procedure and remains asymptomatic. He is recovered from his stroke butstill has some incoordination of his left hand. The patient also has known calcific atherosclerosisof his left internal carotid artery. The patient does not have any new onset symptoms such as amaurosis fugax, hemiparesis, hemiparesthesias or aphasia. The patient does not have any posterior circulation symptoms. Past Medical History: Diagnosis Date Apical 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 Chronic kidney disease Diabetes mellitus (HCC) Hypertension Ischemic cardiomyopathy 2012 Past Surgical History: Procedure Laterality Date ASD REPAIR CARDIAC CATHETERIZATION CARDIAC DEFIBRILLATOR PLACEMENT CHOLECYSTECTOMY 11/2020 TRANSCAROTID ARTERY REVASCULARIZATION Right 12/28/2021 Procedure: TRANSCAROTID ARTERY REVASCULARIZATION; Surgeon: Shahab Buckley MD; Location: IR LAB; Service: Surgical Interventional Radiology Current Outpatient Medications Medication Sig Dispense Refill aspirin 81 MG EC tablet Take 1 (one) tablet (81 mg total) by mouth daily . atorvastatin (Lipitor) 80 MG tablet Take 1 (one) tablet (80 mg total) by mouth daily . 30 tablet 11 cholecalciferol, vitamin D3, 1,000 unit tablet Take 2 (two) tablets (2,000 Units total) by mouth daily . clopidogreL (PLAVIX) 75 mg tablet Take 1 (one) tablet (75 mg total) by mouth daily . 90 tablet 11 DULoxetine (CYMBALTA) 20 MG capsule TAKE 1 CAPSULE BY MOUTH EVERY DAY FOR 30 DAYS furosemide (LASIX) 20 MG tablet Take 1 (one) tablet (20 mg total) by mouth 2 (two) times a day 2 tablets AM, 1 tablet PM . gabapentin (NEURONTIN) 300 MG capsule Take 1 (one) capsule (300 mg total) by mouth every 8 (eight) hours (Days supply per fill: 4) . 90 capsule 0 insulin glargine (LANTUS) 100 unit/mL injection Inject 75 (seventy five) Units under the skin nightly . isosorbide mononitrate (IMDUR) 30 MG 24 hr tablet Take 1 (one) tablet (30 mg total) by mouth daily . metFORMIN (GLUCOPHAGE) 1000 MG tablet Take 1 (one) tablet (1,000 mg total) by mouth 2 (two) times aday with meals . metoprolol succinate (TOPROL-XL) 25 MG 24 hr tablet Take 2 (two) tablets (50 mg total) by mouth daily . sacubitriL-valsartan (ENTRESTO) 49-51 mg per tablet Take 1 (one) tablet by mouth 2 (two) times a day . spironolactone (ALDACTONE) 25 MG tablet Take 1 (one) tablet (25 mg total) by mouth daily . warfarin (COUMADIN) 5 MG tablet Take 0.5 (one-half) tablet (2.5 mg total) by mouth daily 1/2 tablet. No current facility-administered medications for this visit. Family History Problem Relation Age of Onset Heart attack Mother Diabetes Mother Heart disease Father Pancreatic cancer Sister Colon cancer Sister Social History Tobacco Use Smoking status: Never Smokeless tobacco: Never Vaping Use Vaping Use: Never used Substance Use Topics Alcohol use: Yes Alcohol/week: 1.0 standard drink Types: 1 Cans of beer per week Review of Systems Constitutional: Negative for decreased appetite, malaise/fatigue and weight loss. HENT: Negative for hearing loss, hoarse voice and nosebleeds. Eyes: Negative for double vision, vision loss in left eye and vision loss in right eye. Cardiovascular: Negative for chest pain, claudication, leg swelling, orthopnea and palpitations. Respiratory: Negative for cough, hemoptysis, shortness of breath and sputum production. Endocrine: Negative for cold intolerance, heat intolerance, polydipsia, polyphagia and polyuria. Hematologic/Lymphatic: Does not bruise/bleed easily. Skin: Negative for poor wound healing, rash and skin cancer. Musculoskeletal: Negative for arthritis, back pain and joint pain. Gastrointestinal: Negative for abdominal pain, hematochezia and melena. Genitourinary: Positive for nocturia (x1). Negative for dysuria, frequency and hematuria. Neurological: Negative for aphonia, brief paralysis and seizures. Psychiatric/Behavioral: Negative for depression and memory loss. The patient is not nervous/anxious. BP 131/81 (BP Location: Left arm, Patient Position: Sitting) Pulse 80 Ht 5' 11 Wt 107.5 kg (237 lb) BMI 33.05 kg/m Physical Exam Constitutional: Appearance: He is well-developed. HENT: Head: Normocephalic and atraumatic. Eyes: General: No scleral icterus. Conjunctiva/sclera: Conjunctivae normal. Pupils: Pupils are equal, round, and reactive to light. Neck: Vascular: Decreased carotid pulses ( As a result of obesity). No carotid bruit or JVD. Cardiovascular: Rate and Rhythm: Normal rate and regular rhythm. Pulses: Carotid pulses are 2+ on the right side and 2+ on the left side. Radial pulses are 2+ on the right side and 2+ on the left side. Heart sounds: Heart sounds not distant. No murmur heard. No gallop. Pulmonary: Effort: Pulmonary effort is normal. No respiratory distress. Breath sounds: Normal breath sounds. Chest: Comments: AICD easily palpable in the left infraclavicular fossa. Abdominal: General: Bowel sounds are normal. There is no distension. Palpations: Abdomen is soft. Tenderness: There is no abdominal tenderness. Musculoskeletal: General: No tenderness. Normal range of motion. Cervical back: Normal range of motion and neck supple. Skin: General: Skin is warm and dry. Neurological: Mental Status: He is alert and oriented to person, place, and time. Cranial Nerves: No cranial nerve deficit. Coordination: Coordination normal. Psychiatric: Behavior: Behavior normal. Thought Content: Thought content normal. The note was dictated using [employer] dictation system. The voice recognition software is inherently subject to errors including those of syntax and sound- alike substitutions which may escape proofreading. In such instances, original meaning may be extrapolated by contextual derivation. documented in this [id number] Instructions* Patient Instructions* Sophia Gomes MA - 08/26/2022 3:26 PM EST How to contact your Care Team: Provider: MD Kelle Hogan CNP Jill Bender, PA Nurse: Angeles Samano RN To reschedule office appointments call Scheduling [phone] In case of an emergency please call 911. When in need of refills please call the phone number listed above. Please include medication name, pharmacy name and specify 30 or 90 day supply Please check with your pharmacy within 24 hours of your request for refill. You must follow up as directed to continue current refills. Thank you! documented in this [id number] History of Present illness Narrative* Rogerio Gruber, [facility] - 08/24/2022 8:00 AM EST [facility] Medication Management ANTICOAGULATION Referring Provider: Dr Nicole GOAL INR: 2.0-3.0 TODAY'S INR: 3.2 WARFARIN Dosage: Decrease to 1.25 mg WSa, 2.5 mg all other days of the week (7.7% decrease) INR (no units) Date Value 08/24/2022 3.2 07/27/2022 3.9 06/29/2022 3 06/01/2022 4.2 04/27/2022 2 03/30/2022 2.3 03/16/2022 1.8 Medication changes: None Notes: Fingerstick INR drawn per clinic protocol. Patient states no visible blood in urine, no black tarry stool and no bloody noses. Denies any missed or extra doses of warfarin. No change in maintenance medications or in diet. Still slightly supratherapeutic so will decrease dose to 1.25 mg WSa, 2.5 mg AOD and will recheck INR in 4 weeks. Patient acknowledges working in consult agreement with pharmacist as referred by his/her physician. For Pharmacy Admin Tracking Only Intervention Detail: Adherence Monitorin and Dose Adjustment: 1, reason: Therapy Optimization Total # of Interventions Recommended: 2 Total # of Interventions Accepted: 2 Time Spent (min): 20 Rogerio Gruber PharmD 08/24/2022 8:28 AM documented in this encounterCARIL[facility] Phone: 1([phone]) 298-568601-18-2023 Hospital Discharge instructions* Patient Instructions* Rogerio Gruber RPH - 08/24/2022 8:00 AM EST Decrease current dose of warfarin as instructed on dosing calendar provided. Continue to monitor urine and stool for signs and symptoms of bleeding. Please notify the clinic of any medication changes. Kindly notify the clinic if you are unable to make to your next appointment. documented in this encounterCARIL[facility] Phone: 1(392) 911-860012-21-2022 History of Present illness Narrative* Rogerio Gruber RPH - 07/27/2022 8:00 AM EST [facility] Medication Management ANTICOAGULATION Referring Provider: Dr Nicole GOAL INR: 2.0-3.0 TODAY'S INR: 3.9 WARFARIN Dosage: HOLD x 1, then decrease to 1.25 mg W, 2.5 mg all other days of the week (7.1% decrease) INR (no units) Date Value 07/27/2022 3.9 06/29/2022 3 06/01/2022 4.2 04/27/2022 2 03/30/2022 2.3 03/16/2022 1.8 03/02/2022 1.8 Medication changes: None Notes: Fingerstick INR drawn per clinic protocol. Patient states no visible blood in urine and no black tarry stool. Denies any missed or extra doses of warfarin. No change in maintenance medicationsor in diet. Supratherapeutic INR again so will hold tomorrow's dose (already took today's) and willthen have him decrease maintenance dose to 1.25 mg W, 2.5 mg AOD. Will recheck INR in 4 weeks. Patient acknowledges working in consult agreement with pharmacist as referred by his/her physician. For Pharmacy Admin Tracking Only Intervention Detail: Adherence Monitorin and Dose Adjustment: 1, reason: Therapy Optimization Total # of Interventions Recommended: 2 Total # of Interventions Accepted: 2 Time Spent (min): 20 Rogerio Gruber PharmD 07/27/2022 8:21 AM [facility] encounter[facility] [employer] Phone: [phone] Hospital Discharge instructions* Patient Instructions* Rogerio Gruber RPH - 07/27/2022 8:00 AM EST Decrease current dose of warfarin as instructed on dosing calendar provided. Continue to monitor urine and stool for signs and symptoms of bleeding. Please notify the clinic of any medication changes. Kindly notify the clinic if you are unable to make to your next appointment. documented in this encounterPAUL A. DEVER STATE SCHOOLtrend.ly Phone: 1(223) [phone] History of Present illness Narrative* Rogerio Gruber RPH - 06/01/2022 8:00 AM EDT [facility] Medication Management ANTICOAGULATION Referring Provider: Dr Nicole GOAL INR: 2.0-3.0 TODAY'S INR: 2.0 WARFARIN Dosage: HOLD x 1, then decrease to 2.5 mg every day of the week INR (no units) Date Value 06/01/2022 4.2 04/27/2022 2 03/30/2022 2.3 03/16/2022 1.8 03/02/2022 1.8 02/22/2022 1.4 02/15/2022 1.3 Medication changes: None Notes: Fingerstick INR drawn per clinic protocol. Patient states no visible blood in urine and no black tarry stool. Denies any missed or extra doses of warfarin. No change in maintenance medicationsor in diet. Supratherapeutic INR so will have pt hold tomorrow's dose (06/02) as he's already takentoday's dose. Will recheck INR in 4 weeks. Patient acknowledges working in consult agreement with pharmacist as referred by his/her physician. For Pharmacy Admin Tracking Only Intervention Detail: Adherence Monitorin and Dose Adjustment: 1, reason: Therapy Optimization Total # of Interventions Recommended: 2 Total # of Interventions Accepted: 2 Time Spent (min): 20 Rogerio Gruber PharmD 06/01/2022 8:22 AM documented in [facility] Work Phone: [phone] Hospital Discharge instructions* Patient Instructions* Rogerio Gruber RPH - 06/01/2022 8:00 AM EDT Decrease current dose of warfarin as instructed on dosing calendar provided. Continue to monitor urine and stool for signs and symptoms of bleeding. Please notify the clinic of any medication changes. Kindly notify the clinic if you are unable to make to your next appointment. documented in this encounterS[facility] Work Phone: 1([phone]) 788-338209-21-2022 History of Present illness Narrative* Rogerio Gruber RPH - 04/27/2022 8:00 AM EDT [facility] Medication Management ANTICOAGULATION Referring Provider: Dr Nicole GOAL INR: 2.0-3.0 TODAY'S INR: 2.0 WARFARIN Dosage: 3.75 mg M, 2.5 mg all other days of the week INR (no units) Date Value 04/27/2022 2 03/30/2022 2.3 03/16/2022 1.8 03/02/2022 1.8 02/22/2022 1.4 02/15/2022 1.3 02/03/2022 2.1 Medication changes: None Notes: Fingerstick INR drawn per clinic protocol. Patient states no visible blood in urine and no black tarry stool. Denies any missed or extra doses of warfarin. No change in maintenance medicationsor in diet. BP machine had pulse at 37 but the pulse ox recorded pulse at 97. Pt is having no s/s of low pulse so he will keep an eye on it at home. Pt has been on the low/subtherapeutic side of goalfor the last couple months so while he is at goal today, he dropped from 2.3 down to 2.0 over the last month. Will increase Monday's doses to 3.75 mg and continue 2.5 mg all other days of the week. Will recheck INR in 5 weeks. Patient acknowledges working in consult agreement with pharmacist as referred by his/her physician. For Pharmacy Admin Tracking Only Intervention Detail: Adherence Monitorin and Dose Adjustment: 1, reason: Therapy Optimization Total # of Interventions Recommended: 2 Total # of Interventions Accepted: 2 Time Spent (min): 20 Rogerio Gruber PharmD 04/27/2022 8:24 AM documented in this encounterLIFEPOINT [facility]ALS [facility] [employer] Work Phone: [phone] 271-745609-21-2022 Hospital Discharge instructions* Patient Instructions* Rogerio Gruber RPH - 04/27/2022 8:00 AM EDT Increase current dose of warfarin as instructed on dosing calendar provided. Continue to monitor urine and stool for signs and symptoms of bleeding. Please notify the clinic of any medication changes. Kindly notify the clinic if you are unable to make to your next appointment. documented in this encounterLIFEPOINT HOSPITALS [email or web address] Phone: 1(618) 633-108308-24-2022 History of Present illness Narrative* Rogerio Grbuer RPH - 03/30/2022 8:00 AM EDT [facility] Medication Management ANTICOAGULATION Referring Provider: Dr Nicole GOAL INR: 2.0-3.0 TODAY'S INR: 2.3 WARFARIN Dosage: continue 2.5 mg every day INR (no units) Date Value 03/30/2022 2.3 03/16/2022 1.8 03/02/2022 1.8 02/22/2022 1.4 02/15/2022 1.3 02/03/2022 2.1 01/27/2022 6.8 Medication changes: None Notes: Fingerstick INR drawn per clinic protocol. Patient states no visible blood in urine and no black tarry stool. Denies any missed or extra doses of warfarin. No change in maintenance medicationsor in diet. Therapeutic INR today so will continue current dosing and will recheck INR in 4 weeks. Patient acknowledges working in consult agreement with pharmacist as referred by his/her physician. For Pharmacy Admin Tracking Only Intervention Detail: Adherence Monitorin Total # of Interventions Recommended: 1 Total # of Interventions Accepted: 1 Time Spent (min): 20 Rogerio Gruber PharmD 03/30/2022 8:13 AM documented in this [facility] Work Phone: [phone]) [phone] Hospital Discharge instructions* Patient Instructions* Rogerio Gruber RPH - 03/30/2022 8:00 AM EDT Continue current dose of warfarin as instructed on dosing calendar provided. Continue to monitor urine and stool for signs and symptoms of bleeding. Please notify the clinic of any medication changes. Kindly notify the clinic if you are unable to make to your next appointment. documented in this [facility] Work Phone: [phone]) [phone] History of Present illness Narrative* Rogerio Gruber RPH - 03/16/2022 8:20 AM EDT [facility] Medication Management ANTICOAGULATION Referring Provider: Dr Nicole GOAL INR: 2.0-3.0 TODAY'S INR: 1.8 WARFARIN Dosage: 5 mg x 1, then increase to 2.5 mg every day INR (no units) Date Value 03/16/2022 1.8 03/02/2022 1.8 02/22/2022 1.4 02/15/2022 1.3 02/03/2022 2.1 01/27/2022 6.8 01/20/2022 2.6 Medication changes: None Notes: Fingerstick INR drawn per clinic protocol. Patient states no visible blood in urine and no black tarry stool. Denies any missed or extra doses of warfarin. No change in maintenance medicationsor in diet. Dose increase at last visit did not achieve therapeutic goal so will have him take a one time dose of 5 mg this time and then increase another 7.7% to 2.5 mg daily. Will recheck INR in 2 weeks. Patient acknowledges working in consult agreement with pharmacist as referred by his/her physician. For Pharmacy Admin Tracking Only Intervention Detail: Adherence Monitorin and Dose Adjustment: 1, reason: Therapy Optimization Total # of Interventions Recommended: 2 Total # of Interventions Accepted: 2 Time Spent (min): 20 Rogerio Gruber PharmD 03/16/2022 8:35 AM [facility] encounter[facility] [employer] Work Phone: [phone] Hospital Discharge instructions* Patient Instructions* Rogerio Gruber RPH - 03/16/2022 8:20 AM EDT Increase current dose of warfarin as instructed on dosing calendar provided. Continue to monitor urine and stool for signs and symptoms of bleeding. Please notify the clinic of any medication changes. Kindly notify the clinic if you are unable to make to your next appointment. documented in this encounterPAUL A. DEVER STATE SCHOOLtrend.ly Phone: [phone]) [phone] History of Present illness Narrative* Rogerio Gruber RPH - 03/02/2022 8:00 AM EDT [facility] Medication Management ANTICOAGULATION Referring Provider: Dr Nicole GOAL INR: 2.0-3.0 TODAY'S INR: 1.8 WARFARIN Dosage: increase dosing to 1.25mg Sun, 2.5mg all other days INR (no units) Date Value 03/02/2022 1.8 02/22/2022 1.4 02/15/2022 1.3 02/03/2022 2.1 01/27/2022 6.8 01/20/2022 2.6 01/13/2022 6.2 Medication changes: None Notes: Fingerstick INR drawn per clinic protocol. Patient states no visible blood in urine and no black tarry stool. Denies any missed or extra doses of warfarin. No change in other maintenance medications or in diet. INR almost therapeutic so will increase by 1.25 mg/wk (8.3%) and will recheck INRin 2 weeks. Patient acknowledges working in consult agreement with pharmacist as referred by his/her physician. For Pharmacy Admin Tracking Only Intervention Detail: Adherence Monitorin and Dose Adjustment: 1, reason: Therapy Optimization Total # of Interventions Recommended: 2 Total # of Interventions Accepted: 2 Time Spent (min): 20 Rogerio Gruber PharmD 03/02/2022 8:13 AM documented in this encounterCARILION [facility]OSPITALCOPsync Phone: [phone] Hospital Discharge instructions* Patient Instructions* Rogerio Gruber RPH - 03/02/2022 8:00 AM EDT Increase current dose of warfarin as instructed on dosing calendar provided. Continue to monitor urine and stool for signs and symptoms of bleeding. Please notify the clinic of any medication changes. Kindly notify the clinic if you are unable to make to your next appointment. documented in this encounterCARILION ROANOKE [facility]OR[facility] HOSPITALCOPsync Phone: [phone]) [phone] History of Present illness Narrative* Marion Bell, [facility] - 02/22/2022 8:20 AM EDT [facility] Medication Management ANTICOAGULATION Referring Provider: Dr Nicole GOAL INR: 2.0-3.0 TODAY'S INR: 1.4 WARFARIN Dosage: increase dosing to 1.25mg Mon/, 2.5mg all other days INR (no units) Date Value 02/22/2022 1.4 02/15/2022 1.3 02/03/2022 2.1 01/27/2022 6.8 01/20/2022 2.6 01/13/2022 6.2 01/06/2022 2.5 Medication changes: No chnages Notes: Fingerstick INR drawn per clinic protocol. Patient states no visible blood in urine and no black tarry stool. Denies any missed doses of warfarin. No change in other maintenance medications kita diet. Will recheck INR in 1 week. Patient's appetite continues to improve. Patient states he is feeling better overall but still fatigues easily. Patient acknowledges working in consult agreement with pharmacist as referred by his/her physician. For Pharmacy Admin Tracking Only Intervention Detail: Adherence Monitorin and Dose Adjustment: 3, reason: Therapy Optimization Total # of Interventions Recommended: 5 Total # of Interventions Accepted: 5 Time Spent (min): 30 Marion Bell R.Ph., 02/22/2022,10:21 AM documented in this encounterPAUL A. DEVER STATE SCHOOLtrend.ly Phone: [phone] Hospital Discharge instructions* Patient Instructions* Marion Bell RPH - 02/22/2022 8:20 AM EDT Please increase your dosing to take 1/2 tablet (1.25mg) on Sundays and and 1 tablet(2.5mg) all other days. Continue to monitor for signs of bleeding. Return to coumadin clinic in 8 days. documented in this encounterPAUL A. DEVER STATE SCHOOLtrend.ly Phone: [phone] Evaluation + Plan note* Assessment & Plan Note - Shahab Buckley MD - 02/12/2022 10:17 PM EDTAssociated Problem(s): Symptomatic stenosis of right carotid artery The patient had successful transcarotid arterial revascularization. His procedure is been uncomplicated other than the soreness in his left arm associated with IV therapy. Plan: 6-month follow-up with carotid duplex sonography and a clinical visit. I think the patient should continue clopidogrel 75 mg p.o. daily with his warfarin. I explained that platelet inhibition was important with his intracranial cerebrovascular disease which was demonstrated on CT angiography. I also explained that he should continue high intensity statin therapy with atorvastatin 80 mg p.o.daily. This is been found to decrease incidence of stroke and myocardial infarction and high intensity statin therapy follows [place] [employer] guidelines. [id number] Miscellaneous Notes* Assessment & Plan Note - Shahab Buckley MD - 02/12/2022 10:17 PM EDTAssociated Problem(s): Symptomatic stenosis of right carotid artery The patient had successful transcarotid arterial revascularization. His procedure is been uncomplicated other than the soreness in his left arm associated with IV therapy. Plan: 6-month follow-up with carotid duplex sonography and a clinical visit. I think the patient should continue clopidogrel 75 mg p.o. daily with his warfarin. I explained that platelet inhibition was important with his intracranial cerebrovascular disease which was demonstrated on CT angiography. I also explained that he should continue high intensity statin therapy with atorvastatin 80 mg p.o.daily. This is been found to decrease incidence of stroke and myocardial infarction and high intensity statin therapy follows [place] [employer] guidelines. documented in this [id number] History of Present illness Narrative* Shahab Buckley MD - 02/12/2022 10:14 PM EDT Assessment Symptomatic stenosis of right carotid artery The patient had successful transcarotid arterial revascularization. His procedure is been uncomplicated other than the soreness in his left arm associated with IV therapy. Plan: 6-month follow-up with carotid duplex sonography and a clinical visit. I think the patient should continue clopidogrel 75 mg p.o. daily with his warfarin. I explained that platelet inhibition was important with his intracranial cerebrovascular disease which was demonstrated on CT angiography. I also explained that he should continue high intensity statin therapy with atorvastatin 80 mg p.o.daily. This is been found to decrease incidence of stroke and myocardial infarction and high intensity statin therapy follows [place] [employer] guidelines. Barak Foster 1955 66 y.o. male who presents to the office in followup of his right transcarotid arterial revascularization for severe symptomatic carotid occlusive disease. The procedure was uneventful as has been his recovery. His major complaint was a sore left arm on the medial aspect associated with cannulation of his forearm basilic vein for IV therapy. This was done while he was asleep for surgery. I suspect the clinical staff had some difficulty because he had multiple punctures. Fortunately he has seen his primarycare physician who explained the natural history of the discomfort and he has been using an ice pack. Past Medical History: Diagnosis Date Apical 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 Chronic kidney disease Diabetes mellitus (HCC) Hypertension Ischemic cardiomyopathy 2012 Past Surgical History: Procedure Laterality Date ASD REPAIR CARDIAC CATHETERIZATION CARDIAC DEFIBRILLATOR PLACEMENT CHOLECYSTECTOMY 11/2020 TRANSCAROTID ARTERY REVASCULARIZATION Right 12/28/2021 Procedure: TRANSCAROTID ARTERY REVASCULARIZATION; Surgeon: Shahab Buckley MD; Location: IR LAB; Service: Surgical Interventional Radiology Current Outpatient Medications Medication Sig Dispense Refill aspirin 81 MG EC tablet Take 81 mg by mouth daily . atorvastatin (Lipitor) 80 MG tablet Take 1 (one) tablet (80 mg total) by mouth daily . 30 tablet 11 cholecalciferol, vitamin D3, 1,000 unit tablet Take 2,000 Units by mouth daily . clopidogreL (PLAVIX) 75 mg tablet Take 1 (one) tablet (75 mg total) by mouth daily . 90 tablet 11 DULoxetine (CYMBALTA) 20 MG capsule TAKE 1 CAPSULE BY MOUTH EVERY DAY FOR 30 DAYS furosemide (LASIX) 20 MG tablet Take 20 mg by mouth 2 (two) times a day 2 tablets AM, 1 tablet PM . gabapentin (NEURONTIN) 300 MG capsule Take 1 (one) capsule (300 mg total) by mouth every 8 (eight) hours (Days supply per fill: 4) . 90 capsule 0 insulin glargine (LANTUS) 100 unit/mL injection Inject 75 Units under the skin nightly . isosorbide mononitrate (IMDUR) 30 MG 24 hr tablet Take 30 mg by mouth daily . metFORMIN (GLUCOPHAGE) 1000 MG tablet Take 1,000 mg by mouth 2 (two) times a day with meals. metoprolol succinate (TOPROL-XL) 25 MG 24 hr tablet Take 50 mg by mouth daily . sacubitriL-valsartan (ENTRESTO) 49-51 mg per tablet Take 1 tablet by mouth 2 (two) times a day . spironolactone (ALDACTONE) 25 MG tablet Take 25 mg by mouth daily. warfarin (COUMADIN) 5 MG tablet Take 2.5 mg by mouth daily 1/2 tablet . No current facility-administered medications for this visit. Family History Problem Relation Age of Onset Heart attack Mother Diabetes Mother Heart disease Father Pancreatic cancer Sister Colon cancer Sister Social History Tobacco Use Smoking status: Never Smokeless tobacco: Never Vaping Use Vaping Use: Never used Substance Use Topics Alcohol use: Yes Alcohol/week: 1.0 standard drink Types: 1 Cans of beer per week Review of Systems Eyes: Negative for vision loss in right eye. Neurological: Negative for aphonia, brief paralysis, focal weakness, headaches, paresthesias and seizures. BP 136/78 (BP Location: Left arm, Patient Position: Sitting) Pulse 83 Ht 5' 11 Wt 105.7 kg (233 lb) BMI 32.50 kg/m Physical Exam Neck: Vascular: Normal carotid pulses. No carotid bruit. Skin: Comments: The right cervical incision is well-healed and there is no evidence of infection or hematoma. The note was dictated using [employer] dictation system. The voice recognition software is inherently subject to errors including those of syntax and sound- alike substitutions which may escape proofreading. In such instances, original meaning may be extrapolated by contextual derivation. documented in this [id number] Instructions* Patient Instructions* Sophia Gomes MA - 02/11/2022 3:42 PM EDT How to contact your Care Team: Provider: MD Kelle Hogan CNP Jill Bender, PA Nurse: Angeles Samano RN To reschedule office appointments call Scheduling [phone] In case of an emergency please call 911. When in need of refills please call the phone number listed above. Please include medication name, pharmacy name and specify 30 or 90 day supply Please check with your pharmacy within 24 hours of your request for refill. You must follow up as directed to continue current refills. Thank you! documented in this [id number] History of Present illness Narrative* Raffy Richardson, [facility] - 02/03/2022 7:40 AM EDT [facility] Medication Management ANTICOAGULATION Referring Provider: Dr. Ayde Nicole GOAL INR: 2.0-3.0 TODAY'S INR: WARFARIN Dosage: INR (no units) Date Value 01/27/2022 6.8 01/20/2022 2.6 01/13/2022 6.2 01/06/2022 2.5 12/22/2021 6.8 12/09/2021 3.3 11/16/2021 1.9 Medication changes: None Notes: Fingerstick INR drawn per clinic protocol. Patient states no visible blood in urine and no black tarry stool. Following his INR of 6.8 on 01/27/2022, Barak confirms that he skipped his warfarinfor 3 days and has taken 1.25 mg warfarin for the past 4 doses as instructed prior to this INR check today. Denies having taken any extra doses of warfarin. As discussed previously, Barak had a carotid enterectomy and stent placement per Dr. Buckley on 12-28-2021 (due to 80-99% right carotid stenosis per CT scan). He had started Plavix 75 mg daily on 12/10/2021 (which can increase INR) and switched from Simvastatin to Atorvastatin 80 mg daily after the procedure. Barak had been taking Gabapentin 300 mg TID and OTC Tylenol 2 ES tablets (1000 mg) every 8 hours for left arm and right shoulder pain, but has cut back to 2 times daily this past week. He was also using Tramadol 100 mg nightly (which can increase INR), but says he hasn't taken this medication the past 2 weeks (since it makes him dizzy in the AM when he gets out of bed). No other changes in maintenance medications. Barak's weight continues to decline since surgery, although he says his appetite is better than it had been since surgery. His weight is down almost 26 pounds in the past 8 weeks (but only 1 pound in the past 7 days). Since his INR is therapeutic today, we will have him continue 1.25 mg warfarin for an additional 7 doses and recheck INR again in 1 week. Patient acknowledges working in consult agreement with pharmacist as referred by his/her physician. For Pharmacy Admin Tracking Only Intervention Detail: Adherence Monitorin and Dose Adjustment: 1, reason: Therapy Optimization Total # of Interventions Recommended: 2 Total # of Interventions Accepted: 2 Time Spent (min): 30 Raffy Richardson RPH, PharmD documented in [facility] encounterS[facility] Work Phone: [phone] Hospital Discharge instructions* Patient Instructions* Raffy Richardson RPH - 02/03/2022 7:40 AM EDT Continue current dose of warfarin as instructed on dosing calendar provided. Continue to monitor urine and stool for signs and symptoms of bleeding. Please notify the clinic of any medication changes. Please remember to bring all medications (both prescription and OTC) to your next visit. Kindly notify the clinic if you are unable to make to your next appointment. documented in this encounterS[facility] Work Phone: [phone]) [phone] History of Present illness Narrative* Raffy Richardson RPH - 01/27/2022 8:00 AM EDT [facility] Medication Management ANTICOAGULATION Referring Provider: Dr. Ayde Nicole GOAL INR: 2.0-3.0 TODAY'S INR: 6.8 WARFARIN Dosage: HOLD x 3 doses, then 1.25 mg x 4 doses INR (no units) Date Value 01/27/2022 6.8 01/20/2022 2.6 01/13/2022 6.2 01/06/2022 2.5 12/22/2021 6.8 12/09/2021 3.3 11/16/2021 1.9 10/04/2021 2.7 Medication changes: 1) Was taking Gabapentin 300 mg TID and OTC Tylenol 2 ES tablets (1000 mg) every 8 hours for left arm and right shoulder pain, but decreased to 2 times daily this past week. 2) Was taking Tramadol 100 mg nightly (which can increase INR), but says he hasn't used this medication since last week because it makes him dizzy in the AM when he gets out of bed. Notes: Fingerstick INR drawn per clinic protocol. Patient states no visible blood in urine and no black tarry stool. Following his INR of 2.6 on 01/20/2022, Barak confirms that he has taken 2.5 mg warfarin x 6 doses and skipped warfarin on 01/21/2022 as instructed prior to this INR check today. Denies having taken any extra doses of warfarin. As discussed previously, Barak had a carotid enterectomy and stent placement per Dr. Buckley on 12-28-2021 (due to 80-99% right carotid stenosis per CT scan). He had started Plavix 75 mg daily on 12/10/2021 (which can increase INR) and switched from Simvastatin to Atorvastatin 80 mg daily after the procedure. Barak had been taking Gabapentin 300 mg TID and OTC Tylenol 2 ES tablets (1000 mg) every 8 hours for left arm and right shoulder pain, but says he has cut back to 2 times daily this past week. He was also using Tramadol 100 mg nightly(which can increase INR), but says he hasn't used this medication since last week because it makes him dizzy in the AM when he gets out of bed. Also discussed last week, Barak had a corticosteroid shot in his right shoulder per Dr. Guadarrama last week. All other medications reviewed for accuracy. No other changes in maintenance medications. Barak's weight continues to decline since surgery, although he says his appetite has gotten better this past week. His weight is down almost 25 pounds in the past 7 weeks. Since his INR has jumped supra-therapeutic again today, we will HOLD his warfarin for the next 3 doses and then have him take only 1.25 mg warfarin for the next 4 doses as noted on his dosing calendar. He only has the 5 mg warfarin tablets at home so we will call in a new Rx forthe 2.5 mg warfarin tablets to his local pharmacy. Patient acknowledges working in consult agreement with pharmacist as referred by his/her physician. For Pharmacy Admin Tracking Only Intervention Detail: Adherence Monitorin, Dose Adjustment: 1, reason: Therapy Optimization and New Rx: 1, reason: Needs Additional Therapy Total # of Interventions Recommended: 3 Total # of Interventions Accepted: 3 Time Spent (min): 30 Raffy Richardson RPH, PharmD documented in this encounterS[facility] Work Phone: [phone] Hospital Discharge instructions* Patient Instructions* Raffy Richardson RPH - 01/27/2022 8:00 AM EDT Decrease current dose of warfarin as instructed on dosing calendar provided. Continue to monitor urine and stool for signs and symptoms of bleeding. Please notify the clinic of any medication changes. Please remember to bring all medications (both prescription and OTC) to your next visit. Kindly notify the clinic if you are unable to make to your next appointment. documented in this encounterSent[facility] Phone: [phone]) [phone] History of Present illness Narrative* Raffy Richardson RPH - 01/20/2022 7:40 AM EDT [facility] Medication Management ANTICOAGULATION Referring Provider: Dr. Ayde Nicole GOAL INR: 2.0-3.0 TODAY'S INR: 2.6 WARFARIN Dosage: 2.5 mg daily INR (no units) Date Value 01/20/2022 2.6 01/13/2022 6.2 01/06/2022 2.5 12/22/2021 6.8 12/09/2021 3.3 11/16/2021 1.9 10/04/2021 2.7 09/06/2021 3.1 Medication changes: Will be stopping Tramadol today Notes: Fingerstick INR drawn per clinic protocol. Patient states no visible blood in urine and no black tarry stool. As discussed previously, Barak had a carotid enterectomy and stent placement per Dr. Buckley on 12-28-2021 (due to 80-99% right carotid stenosis per CT scan). He stopped taking his warfarin for 4 days prior to this procedure and resumed warfarin dosing as instructed post-procedurally. Following his supra-therapeutic INR of 6.2 on 01/13/2022, Barak skipped his warfarin for 3 days and then took only 2.5 mg warfarin for the past 3 doses as instructed prior to this INR check today.He had started Plavix 75 mg daily on 12/10/2021 (which can increase INR) and Dr. Buckley had also stopped his Simvastatin and switched him to Atorvastatin 80 mg daily after the procedure. Barak had still been having significant left arm pain last week and was taking Gabapentin 300 mg TID and OTC Tylenol 2 ES tablets (1000 mg) every 8 hours. He tells me today that he had also been using Tramadol 100 mg nightly (which can increase INR), but doesn't think he is going to take this anymore because it makes him feel dizzy and lightheaded in the AM when he gets out of bed. He still has bruising onthe left arm where the IV had been placed; however, it is healing and looks better today. Barak tells me that he did have a corticosteroid shot in his right shoulder per Dr. Guadarrama a couple daysago and followed up with Dr. Buckley, his surgeon, earlier this week. No change in other maintenan ce medications or in diet. Barak's pulse is reading low again today here in the clinic. He says it's always good at home and was good at Dr. Guadarrama's this week . He will continue to check it throughout the day while at home. I have recommended that he go to the ER if his dizziness/lightheadedness does not improve or gets any worse after he has stopped the Tramadol. We will have him take 2.5 mg warfarin daily (except skip Fridays) and recheck INR in 1 week. Patient acknowledges working in consult agreement with pharmacist as referred by his/her physician. For Pharmacy Admin Tracking Only Intervention Detail: Adherence Monitorin and Dose Adjustment: 1, reason: Therapy Optimization Total # of Interventions Recommended: 2 Total # of Interventions Accepted: 2 Time Spent (min): 30 aRffy Richardson RP, PharmD documented in this encounterS[facility] Work Phone: [phone] Hospital Discharge instructions* Patient Instructions* Raffy Richardson RP - 01/20/2022 7:40 AM EDT Decrease previous dose of warfarin as instructed on dosing calendar provided. Continue to monitor urine and stool for signs and symptoms of bleeding. Please notify the clinic of any medication changes. Please remember to bring all medications (both prescription and OTC) to your next visit. Kindly notify the clinic if you are unable to make to your next appointment. documented in this encounterS[facility] Work Phone: [phone] History of Present illness Narrative* Raffy Richardson RPH - 01/13/2022 7:40 AM EDT [facility] Medication Management ANTICOAGULATION Referring Provider: Dr. Ayde Nicole GOAL INR: 2.0-3.0 TODAY'S INR: 6.2 WARFARIN Dosage: 5 mg on Wednesdays and 2.5 mg all other days of the week. INR (no units) Date Value 01/06/2022 2.5 12/22/2021 6.8 12/09/2021 3.3 11/16/2021 1.9 10/04/2021 2.7 09/06/2021 3.1 08/10/2021 3.2 Medication changes: Stopped Simvastatin s/p carotid procedure per Dr. Buckley on 12/28/2021 and switched to Atorvastatin 80 mg daily Started Plavix 75 mg daily on 12/10/2021 Increased Gabapentin to 300 mg TID and started taking Tylenol 1000 mg every 8 hours for left arm pain Notes: Fingerstick INR drawn per clinic protocol. Patient states no visible blood in urine and no black tarry stool. Denies any missed doses of warfarin. As discussed previously, Barak had a carotid enterectomy and stent placement per Dr. Buckley on 12-28-2021 (due to 80-99% right carotid stenosis per CT scan). He stopped taking his warfarin for 4 days prior to this procedure and resumed warfarin dosing as instructed prior to this INR check today. Following INR of 2.5 on 01/06/2022, Barak confirms that he has taken 5 mg warfarin x 1 dose and 2.5 mg warfarin x 6 doses as instructed prior to this INR check today. He had started Plavix 75 mg daily on 12/10/2021 (which can increase INR). Also, Dr. Buckley stopped his Simvastatin and switched him to Atorvastatin 80 mg daily after the procedure.Barak says he continues to have significant left arm pain and bruising in the area where the IV wasplaced during the procedure and has developed shakiness/tremor in both upper extremities. He went to the ER on 01/07/2022 due to concerns for blood clot and had an ultrasound on 01/08/22 that was negative for DVT of left upper extremity. Barak says he was instructed to increase his Gabapentin to 300 mg TID and is taking OTC Tylenol 2 ES tablets (1000 mg) every 8 hours . Since high doses of Acetaminophen can increase INR, this could also be contributing to his supra-therapeutic INR today. He sayshe will follow up with Dr. Buckley sometime next week . No change in other maintenance medications or in diet. Barak takes his warfarin in the AM and says he has already taken 1/2 tablet (2.5 mg)this morning. We will HOLD his warfarin dose for the next 3 doses (01/14 through 01/16), then he willtake only 2.5 mg daily for 3 doses (01/17 through 01/19) as noted on his dosing calendar. We will recheck INR again in 1 week and reassess further warfarin dosing at that time. Patient acknowledges working in consult agreement with pharmacist as referred by his/her physician. For Pharmacy Admin Tracking Only Intervention Detail: Adherence Monitorin and Dose Adjustment: 1, reason: Therapy Optimization Total # of Interventions Recommended: 2 Total # of Interventions Accepted: 2 Time Spent (min): 30 Raffy Richardson RP, PharmD documented in this encounterCARILION RO[facility]OKE [facility] HOSPITALSkySQL [facility] Phone: [phone]) [phone] Hospital Discharge instructions* Patient Instructions* Raffy Richardson RPH - 01/13/2022 7:40 AM EDT Decrease current dose of warfarin as instructed on dosing calendar provided. Continue to monitor urine and stool for signs and symptoms of bleeding. Please notify the clinic of any medication changes. Please remember to bring all medications (both prescription and OTC) to your next visit. Kindly notify the clinic if you are unable to make to your next appointment. documented in this encounterCARILION ROANOKE [facility]OSPITALSkySQL Work Phone: 1([phone]) 164-142306-03-2022 Hospital Discharge instructions* Instructions* Lonnie Hart MD - 01/07/2022 Information on DVT is provided for informational purposes only at this time, we have set you up forultrasound tomorrow morning at 730 am, please arrive early for any paperwork. If any symptoms such as worsening pain, chest pain or palpitations, or shortness of breath difficulty breathing occur, please return to the emergency room for reevaluation. * Attachments The following attachments cannot be sent through Care Everywhere. * Arm Pain ([place] Citizen) * DVT (Deep Vein Thrombosis): General Info ([place] Citizen) documented in this encounterPA[facility]. [facility]OL[facility] Phone: 1(880) 823-336706-02-2022 History of Present illness Narrative* Raffy Richardson RPH - 01/06/2022 7:40 AM EDT [facility] Medication Management ANTICOAGULATION Referring Provider: Dr. Ayde Nicole GOAL INR: 2.0-3.0 TODAY'S INR: 2.5 WARFARIN Dosage: 5 mg on Wednesdays and 2.5 mg all other days of the week. INR (no units) Date Value 01/06/2022 2.5 12/22/2021 6.8 12/09/2021 3.3 11/16/2021 1.9 10/04/2021 2.7 09/06/2021 3.1 08/10/2021 3.2 Medication changes: Stopped Simvastatin s/p carotid procedure per Dr. Buckley on 12/28/2021 Started Plavix 75 mg daily on 12/10/2021 Notes: Fingerstick INR drawn per clinic protocol. Patient states no visible blood in urine and no black tarry stool. Denies any missed doses of warfarin. As discussed during his last appointment, Barka had a CT scan of the neck in [place] per Dr. Buckley which showed a blocked artery (80-99% right carotid stenosis). He had a procedure for stent placement on December 28 and stopped taking his warfarin for 4 days prior to this procedure. He was started on Plavix 75 mg daily as of 12/10/2021 (which can increase INR). Barak skipped his warfarin from 12/22/2021 through 12/27/2021 due to supra-therapeutic INR at his last visit. He says he restarted his warfarin the night of the procedure in the evening and has taken 5 mg warfarin on Wednesdays and 2.5 mg warfarin all other days of the week as instructed prior to this INR check today. Barak also tells me that Dr. Buckley stopped his Simvastatin after the procedure, but he is unsure why. He has a follow up visit with Dr. Buckley in [facility] . No change in other maintenance medications or in diet. Barak's pulse is reading low today here in the clinic. He says he feels fine and has an appointment with his PCP at 9 am this morning and they will check it there again. Given his therapeutic INR today, we will continue 5mg warfarin on Wednesdays and 2.5 mg warfarin all other days of the week and recheck INR again in 1week. Patient acknowledges working in consult agreement with pharmacist as referred by his/her physician. For Pharmacy Admin Tracking Only Intervention Detail: Adherence Monitorin and Dose Adjustment: 1, reason: Therapy Optimization Total # of Interventions Recommended: 2 Total # of Interventions Accepted: 2 Time Spent (min): 30 Raffy Richardson RPH, PharmD [facility] Phone: [phone]) 162-282206-02-2022 Hospital Discharge instructions* Patient Instructions* Raffy Richardson RPH - 01/06/2022 7:40 AM EDT Continue current dose of warfarin as instructed on dosing calendar provided. Continue to monitor urine and stool for signs and symptoms of bleeding. Please notify the clinic of any medication changes. Please remember to bring all medications (both prescription and OTC) to your next visit. Kindly notify the clinic if you are unable to make to your next appointment. documented in [facility]Sent[facility] Phone: 1(911) 717-420805-25-2022 Hospital course Narrative* Mary Jane Rodriguez PA-C - 12/29/2021 9:46 AM EDT DISCHARGE SUMMARY Patient: Barak Foster Date of : 1955 Site: [facility] Provider: Jeff Cerda MD Admit Date: 12/28/2021 Discharge Date/Time: 12/29/21 Morning Disposition: Home Clinical Summary Hospital Course: Barak Foster is a 66 y.o. male patient of Jeff Cerda MD with a history of carotid arterystenosis. Patient was worked outpatient per Dr. Buckley to undergo TCAR revascularization. Patientdid tolerate the procedure well with no new neurological or focal deficits. Patient had episode of vomiting and became diaphoretic and recovery after the operation. Cardiology has evaluated patient and cleared him from their standpoint. Patient denied any complications with swallowing or tolerance with food. Patient ambulating halls well independently. Patient was discharged POD #1 home in stablecondition. Discharge Diagnoses: Status post right TCAR per Dr. Buckley 12/28/2021 Surgeries: 12/28/21 TRANSCAROTID ARTERY REVASCULARIZATION Consults: Procedures Inpatient consult to Neurology Inpatient consult to Cardiology Allergies: Patient has no known allergies. Discharge Diet: Resume home diet Condition: Good Discharge Medications: Discharge Medications New Medications Details acetaminophen 325 MG tablet Commonly known as: TYLENOL Take 2 (two) tablets (650 mg total) by mouth every 4 (four) hours as needed . Quantity: 30 tablet atorvastatin 80 MG tablet Commonly known as: Lipitor Take 1 (one) tablet (80 mg total) by mouth daily . Quantity: 30 tablet Modified Medications Details gabapentin 300 MG capsule Commonly known as: NEURONTIN What changed: additional instructions Take 1 (one) capsule (300 mg total) by mouth every 8 (eight) hours (Days supply per fill: 4) . Quantity: 90 capsule Medications To Continue Details aspirin 81 MG EC tablet Take 81 mg by mouth daily . cholecalciferol (vitamin D3) 1,000 unit tablet Take 2,000 Units by mouth daily . clopidogreL 75 mg tablet Commonly known as: PLAVIX Take 1 (one) tablet (75 mg total) by mouth daily . Quantity: 90 tablet furosemide 20 MG tablet Commonly known as: LASIX Take 20 mg by mouth 2 (two) times a day 2 tablets AM, 1 tablet PM . insulin glargine 100 unit/mL injection Commonly known as: LANTUS Inject 75 Units under the skin nightly . isosorbide mononitrate 30 MG 24 hr tablet Commonly known as: IMDUR Take 30 mg by mouth daily . metFORMIN 1000 MG tablet Commonly known as: GLUCOPHAGE Take 1,000 mg by mouth 2 (two) times a day with meals. metoprolol succinate 25 MG 24 hr tablet Commonly known as: TOPROL-XL Take 50 mg by mouth daily . sacubitriL-valsartan 49-51 mg per tablet Commonly known as: ENTRESTO Take 1 tablet by mouth 2 (two) times a day . spironolactone 25 MG tablet Commonly known as: ALDACTONE Take 25 mg by mouth daily. warfarin 5 MG tablet Commonly known as: COUMADIN Take 5 mg by mouth daily. Stopped Medications simvastatin 40 MG tablet Commonly known as: ZOCOR Physician(s) Family Provider: Jeff Cerda MD, Address: [address] [facility] [address] Follow Up: Shahab Buckley MD [facility] [place] [facility] [address] Follow up on 02/11/2022 3rd floor MOB @ 3:00 pm -please arrive 15 min early SCAN to be performed prior to follow up Jeff Cerda MD [address] [place] [id number] Follow up 1-2 weeks hospital follow up Additional Information: Echocardiogram ordered with results pending prior to discharge Patient instructions, including activity, were given to the patient/family at discharge. Please seethe After Visit Summary in the electronic medical record for details. Time spent on discharge: < 30 minutes Completed by: Mary Jane Rodriguez PA-C on 12/29/21, 10:06 AM documented in this [id number] History of Present illness Narrative* Shante Troncoso - 12/29/2021 9:45 AM EDT Spiritual Care Progress Note Completed by: Shante Troncoso Person(s) Present During this Visit: Patient Time Spent in Direct Patient Care: 15 Narrative: While rounding retail pharmacy merchandiser introduced self and role. Information regarding pastoral care services and how to contact was provided. No family present. The Pastoral Care team will remain available to support patient as needed/requested. Patients Response to Pastoral Care: Appeared to be not engaged Planning for Future Visits: JOSE F Troncoso MDiv Staff Pst Supervisor Pastoral Care Department [facility] [phone] on-call [phone] office 12/29/21 0945 Visit Background Visit With Patient Visit By Staff Pst Supervisor Visit Progression Introduction Visit Requested By Pst Supervisor Initiated Visit Source Pst Supervisor Initiated Visit Type Inpatient;Rounding Visit Circumstances and Events Routine Visit Visit Length (minutes) 15 Patient's Response to Pastoral Care Appeared to be not engaged Visit Planning PRN Spiritual Assessment Not assessed during visit Confucianism Assessment Not assessed during this visit Family assessment provided? Not assessed during this visit documented in this [id number] Note* Quick Note - Yanelis Blackmon RN - 12/29/2021 9:14 AM EDT Stroke cart post op assessment complete. [id number] Miscellaneous Notes* Quick Note - Yanelis Blackmon RN - 12/29/2021 9:14 AM EDT Stroke cart post op assessment complete. * Plan of Care - Belia Ponce RN - 12/28/2021 6:11 PM EDT Poc initiated Problem: Actual or potential alteration in health Goal: Absence of healthcare acquired conditions Outcome: Not Met Goal: Knowledge of Interdisciplinary Plan of Care Outcome: Not Met Goal: Knowledge of Enviroment Outcome: Not Met Problem: Pain Goal: Manage acute pain Outcome: Not Met Goal: Manage chronic pain Outcome: Not Met Goal: Reduced pain sensation Outcome: Not Met Goal: Achievement of comfort function goal Outcome: Not Met Problem: Pressure Ulcer - Risk of Goal: Absence of pressure ulcer Outcome: Not Met * Quick Note - Tiffani Hills RN - 12/28/2021 4:40 PM EDT Notified Do of K+ 5.2 and other lab values. * Op Note - Shahab Buckley MD - 12/28/2021 11:58 AM EDT Preprocedure diagnosis: Symptomatic laterality right arotid stenosis Post procedure diagnosis: Symptomatic right carotid stenosis Procedures performed: Right Transcarotid arterial revascularization Surgeon: Shahab Buckley M.D. FACS Fluoroscopy dose: 34.15 Gycm2 Contrast: 70 mL of Isovue-300 HISTORY: The patient is a 66year-old gentleman who presents with a high-grade stenosis of the rightinternal carotid artery. Clinical information and imaging suggests that this stenosis is symptomatic. The indications, risks, benefits and alternatives of the trans-carotid arterial revascularizationprocedure based on the data from the NIH submission data from the [facility] trial was explained to the patient. We offered the alternatives of carotid endarterectomy and transfemoral stenting. Becauseof the low morbidity and mortality the patient elected to go with the post approval trial sponsoredby the [facility] and [facility] for transcarotid arterial revascularization. PROCEDURE: The patient was brought to the endovascular suite and prepped and draped sterilely. Siteand side verification occurred. The patient had general anesthesia administered. A transverse incision was made between the two heads of the sternocleidomastoid. This was immediately above the clavicle. I dissected through the subcutaneous tissues and reflected the jugular vein laterally. The vagusnerve was left undamaged and undissected. We prepared controlled the common carotid artery and obtained an ACT. It demonstrated sufficient heparinization. I then cannulated the right common femoral vein with a micropuncture needle, an 018 guidewire and a micropuncture sheath under ultrasound guidance. I advanced an 035 J-wire and placed the proprietary Silkroad sheath. It was sewn in place with 2-0 silk suture. I then cannulated the common carotid artery with the proprietary micropuncture needle, an 018 guidewire and a micropuncture sheath under fluoroscopic guidance. Angiography revealed thecervical bifurcation and under fluoroscopic control I advanced the micropuncture sheath into the external carotid artery. I then used the proprietary 035 wire and placed the Silkroad stent delivery sheath into the common carotid artery. It was secured in place with 2-0 Prolene suture. We completed the circuit and verify that there was passive retrograde flow. I then crossclamped the common carotid artery verifying that there was reverse flow angiographically. I then used the Prowater 014 guidewire and crossed the area of stenosis under active reverse flow. The tip of the wire was placed in the siphon. We then dilated the area of stenosis with a 4 mm x 3 cm noncompliant rapid exchange balloon. The patient did not have any hemodynamic instability. A 9 mm x 30 mm Silkroad proprietary transcarotid stent was placed. Completion imaging demonstrated a widely patent internal carotid artery without any evidence of residual stenosis. Intracranial imaging demonstrated no evidence of embolization. I discontinued the reversed flow. Flow reversal time was approximately 19 minutes. The carotid sheath was removed and the carotid artery was primarily repaired with interrupted 6-0 Prolene. When hemostasis occurred the cervical wound was closed with 3-0 Vicryl in the platysma muscle. The skin was closed with subcuticular of 3-0 Monocryl appropriate dressing was placed the patient awoke neurologically intact. All sponge and needle counts were correct at the completion of the case. Completion imaging right cervical carotid artery: The right common carotid artery, internal carotidartery and external carotid artery appears to be widely patent. The stent appears to approximate the wall of the internal carotid artery. There is no dissection distal to the stent. Intracranial imaging status post placement of a right carotid stent: Lateral and Donya views of the intracranial circulation was accomplished. The siphon of the internal carotid artery appears to bediseased with approximately a 50% stenosis. The transverse portion of the anterior cerebral artery appears to be widely patent. The anterior cerebral artery appears to be widely patent without evidenc e of embolization. The M1, M2 and M3 portions of the middle cerebral artery appear to be widely patent but diseased. There is normal arborization of the middle cerebral artery without evidence of embolization. The posterior cerebral communicating artery is not visualized. IMPRESSION: Uneventful right transcarotid arterial revascularization for symptomatic carotid occlusive disease. The note was dictated using [employer] dictation system. The voice recognition software is inherently subject to errors including those of syntax and sound- alike substitutions which may escape proofreading. In such instances, original meaning may be extrapolated by contextual derivation. * Brief Op Note - Shahab Buckley MD - 12/28/2021 11:58 AM EDT Brief Post Operative Note Patient Name: Barak Foster : 1955 (66 y.o.) Date of Service: 12/28/2021 CSN: [id number] Procedure(s): TRANSCAROTID ARTERY REVASCULARIZATION ANGIOGRAPHY IMAGING Pre-Operative Diagnoses: * Symptomatic right carotid stenosis Post-Operative Diagnoses: * Symptomatic right carotid stenosis * Symptomatic stenosis of right carotid artery [I65.21] Surgeon(s) and Role: * Shahab Buckley MD - Primary Anesthesiologist: Tin Lei MD CHOIR ACCOMPANIST: Cheyenne Brooks CRNA Student Nurse Foreign Clerk: [facility] Bosom Presser: Yanet Warren, TECHNOLOGIST Scrub Person: Osiris Chapman, TECHNOLOGIST; Miko Grimes TECHNOLOGIST Document Control Assistant Orientee: Celeste Beltran RN Document Control Assistant Preceptor: Kathi Medina RN Scrub Person Preceptor: ST Davi Scrub Person Orientee: Velma Palumbo RN ORA PRECEPTOR: Katya Dyer Operative findings: 99% stenosis now completely corrected with BOREMATIC MACHINE OPERATOR/stent right internal carotid artery Intra and immediate post-operative complications: none Type of anesthesia used: General anesthesia Estimated blood loss: 20 mL Implant(s): Implant Name Type Inv. Item Serial No. Wet Cotton Feeder Lot No. LRB No. Used Action STENT 9 X 30MM TRANSCAROTID ENROUTE - SN/A Stent STENT 9 X 30MM TRANSCAROTID ENROUTE N/A [facility] [address] [id number] Right 1 Implanted Wound(s): Wound 12/28/21 1 Surgical Wound Neck Right (Active) Wound Closure Sutures 12/14/21 0002 Wound 12/28/21 2 Surgical Wound Groin Anterior;Right (Active) Wound Closure Sutures;Surgical Adhesive 12/14/21 0002 Shahab Buckley MD 12/28/2021 3:09 PM documented in this [id number] Note* Plan of Care - Belia Ponce RN - 12/28/2021 6:11 PM EDT Poc initiated Problem: Actual or potential alteration in health Goal: Absence of healthcare acquired conditions Outcome: Not Met Goal: Knowledge of Interdisciplinary Plan of Care Outcome: Not Met Goal: Knowledge of Enviroment Outcome: Not Met Problem: Pain Goal: Manage acute pain Outcome: Not Met Goal: Manage chronic pain Outcome: Not Met Goal: Reduced pain sensation Outcome: Not Met Goal: Achievement of comfort function goal Outcome: Not Met Problem: Pressure Ulcer - Risk of Goal: Absence of pressure ulcer Outcome: Not Met [id number] Consult note* Tracy Brian MD - 12/28/2021 5:57 PM EDTAssociated Order(s): IP CONSULT TO CARDIOLOGY Please see consult note from today [facility] Work Phone: [phone]) [phone] Consult note* Tracy Brian MD - 12/28/2021 5:57 PM EDTAssociated Order(s): IP CONSULT TO CARDIOLOGY Please see consult note from today * Tracy Brian MD - 12/28/2021 5:05 PM EDT General Cardiology Inpatient Consult Heart & Vascular [facility] 12/28/2021 Tracy Brian MD [facility] Patient: Barak Foster Date of : 1955 (66 y.o.) Referring Provider: Refer to consult order in electronic medical record PCP: Jeff Cerda MD Assessment/Plan: Barak Foster is a 66 y.o. male with history of ischemic cardiomyopathy with last known LVEF of 35 to 40%, status post ICD, coronary artery disease status post drug-eluting stent to the left anterior descending (LAD) in 2012 with repeat left heart catheterization in August 2017 which revealed an occluded LAD and 95% disease and a moderate sized diagonal vessel, hypertension, diabetes and carotid artery disease status post right transcarotid arterial revascularization today. The patient was reported to be nauseous and diaphoretic post surgery therefore cardiology was consulted for further evaluation. Nausea and diaphoresis-the patient is not having chest pain. Initial troponin was negative. The nausea possibly related to anesthesia given that his symptoms seem to be provoked with movement. Agree with trending troponins. I have ordered a repeat TTE for the patient. Coronary artery disease with known subtotal occluded/occluded LAD and significant disease of a moderate size diagonal -he denies symptoms of angina and shortness of breath at home. He continues to beactive without much issue. -Continue aspirin 81 mg daily, continue Plavix 75 mg daily, continue isosorbide mononitrate 30 mg daily, continue metoprolol succinate 50 mg daily, continue simvastatin. Chronic systolic heart failure with last known LVEF of 35 to 40%-seems to be euvolemic on exam and warm and well-perfused -Continue home dose of Lasix 20 mg twice daily -Continue Entresto 49-51 mg twice daily -Continue Aldactone 25 mg daily -Continue metoprolol succinate 50 mg daily History of LV thrombus-continue Coumadin The following Vizient risk variables were noted and present on admission: No Vizient risk variables were present on admission Please see assessment and plan for further details. Tracy Brian MD [facility] Non-Invasive Cardiology [facility] Heart and Vascular Subjective Reason for Consultation: Nausea and diaphoresis History of Present Illness: Barak Foster is a 66 y.o. male with history of ischemic cardiomyopathy with last known LVEF of 35 to 40%, status post ICD, coronary artery disease status post drug-eluting stent to the left anterior descending (LAD) in 2012 with repeat left heart catheterization in August 2017 which revealed an occluded LAD and 95% disease and a moderate sized diagonal vessel, hypertension, diabetes and carotid artery disease status post right transcarotid arterial revascularization today. The patient was reported to be nauseous and diaphoretic post surgery therefore cardiology was consulted for further evaluation. Regarding his cardiac history he did undergo an a cardiac MRI in 2018 which revealed a large scar in the LAD distribution involving more than 50% of the myocardial thickness. His proximal LAD stent was subtotally occluded in 2018 however given the lack of viability based on MRI it was opted not to pursue PCI in the LAD. Left heart catheterization at that time also revealed 40% disease in the circumflex and a small nondominant RCA. The patient also has a history of LV thrombus and has been on Coumadin since 2013. The patient reports that his nausea has now resolved. He reports that he may have further episodes of nausea with sudden movements. He denies having chest pain. He denies feeling short of breath. He denies lower extremity swelling, PND and orthopnea. He denies palpitations. He denies lightheadedness and dizziness. He denies any episodes of syncope. 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 Imaging: I independently reviewed the EKG and agree with the interpretation(s) with the following comments. 09/18/17 Cardiac MRI IMPRESSION: 1. Large region of ischemic scar involving the LAD distribution, predominantly in the mid anterior and mid anteroseptal [place] and in the apical anterior wall. Most of the infarct appears moderate to severe, involving greater than 50% of the myocardial thickness in portions, and there is a region ofsevere transmural infarct involving the apical anterior wall. 2. Linear intramyocardial enhancement in the mid septum is contiguous in portions with the subendocardial enhancement described above and is favored to represent an unusual pattern of ischemic scar rather than nonischemic etiology. Small linear focus of apparent enhancement in the inferoseptal abhishek suspected to be artifactual. 3. Dilated cardiomyopathy with estimated left ventricular ejection fraction of 25%. Probable mild mitral regurgitation. There are multiple regions of hypokinesis, with the most severe hypokinesis in the region of the above- described infarct, including akinesis of the apical anterior wall. 4. Small bilateral pleural effusions. Question of interstitial pulmonary edema. TTE 08/25/20 Left ventricle is moderately enlarged. Global left ventricular systolic function is moderately reduced with an estimated ejection fraction of 35-40 % . Left atrium is moderately severely dilated. Right atrium is moderately dilated . Pacing lead seen in the right atrium. Mildly dilated right ventricular cavity. Pacemaker / ICD lead seen in right ventricle. Aortic valve leaflets are mildly thickened. No aortic stenosis. Thickened mitral valve leaflets. Mild mitral regurgitation. Review of Systems: Constitution: Negative. HENT: Negative. Cardiovascular: As above. Respiratory: As above. Endocrine: Negative. Skin: Negative. Musculoskeletal: Negative. Gastrointestinal: Nausea as above Genitourinary: Negative. Neurological: Negative. Psychiatric/Behavioral: Negative. Past Medical History: Diagnosis Date Apical 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 Chronic kidney disease Diabetes mellitus (HCC) Hypertension Ischemic cardiomyopathy 2012 Past Surgical History: Procedure Laterality Date ASD REPAIR CARDIAC CATHETERIZATION CARDIAC DEFIBRILLATOR PLACEMENT CHOLECYSTECTOMY 11/2020 Family History Problem Relation Age of Onset Heart attack Mother Diabetes Mother Heart disease Father Pancreatic cancer Sister Colon cancer Sister Social History Tobacco Use Smoking Status Never Smokeless Tobacco Never Allergies: Patient has no known allergies. Current Facility-Administered Medications Medication Dose Route Frequency Provider Last Rate Last Admin HYDROmorphone (DILAUDID) injection 0.25 mg 0.25 mg Intravenous Q5 Min PRN Tin Lei MD labetaloL (NORMODYNE) injection 5 mg 5 mg Intravenous Q5 Min PRN Tin Lei MD [OCT Hold] lactated Ringers infusion 75 mL/hr Intravenous Continuous Shahab Buckley MD 75 mL/hr at 12/28/21 1126 Restarted at 12/28/21 1255 naloxone (NARCAN) injection 0.1 mg 0.1 mg Intravenous PRN Tin Lei MD And naloxone (NARCAN) injection 0.4 mg 0.4 mg Intravenous PRN Tin Lei MD ondansetron (ZOFRAN) injection 4 mg 4 mg Intravenous Q15 Min PRN Tin Lei MD Objective: Physical Examination: BP (!) 142/66 Pulse 80 Temp 97 F (36.1 C) (Oral) Resp 16 Ht 5' 11 Wt 108.6 kg (239 lb 6.7 oz) SpO2 100% BMI 33.39 kg/m Constitutional: Appears well-developed and well-nourished. No distress. HENT: Head: Normocephalic and atraumatic. Eyes: Conjunctivae and EOM are normal. No scleral icterus. Neck: Bandage Cardiovascular: Normal rate and regular rhythm. Exam reveals no gallop and no friction rub. No murmur heard. Pulmonary/Chest: Effort normal and breath sounds normal. No respiratory distress. No wheezes. No rales. Abdominal: Soft. Bowel sounds are normal. There is no abdominal tenderness. Musculoskeletal: Normal range of motion. General: No edema. Neurological: AOx3, moving all ext. Skin: Skin is warm and dry. No rash noted. Psychiatric: Normal mood and affect. Lab Results Component Value Date GLUCOSE 118 (H) 11/26/2021 CALCIUM 9.6 11/26/2021 NA 137 12/28/2021 K 5.2 (H) 12/28/2021 CL 108 12/28/2021 BUN 35 (H) 11/26/2021 CREATININE 1.85 (H) 11/26/2021 No results found for: WBC, HGB, HCT, MCV, EXTMCV, PLT, RBC No results found for: CHOL No results found for: HDL No results found for: LDLCALC No results found for: TRIG No results found for: CHOLHDL Lab Results Component Value Date TROPONINI 33 12/28/2021 No results found for: NTPROBNP documented in this [id number] Consult note* Tracy Brian MD - 12/28/2021 5:05 PM EDT General Cardiology Inpatient Consult Heart & Vascular [facility] 12/28/2021 Tracy Brian MD [facility] Patient: Barak Foster Date of : 1955 (66 y.o.) Referring Provider: Refer to consult order in electronic medical record PCP: Jeff Cerda MD Assessment/Plan: Barak Foster is a 66 y.o. male with history of ischemic cardiomyopathy with last known LVEF of 35 to 40%, status post ICD, coronary artery disease status post drug-eluting stent to the left anterior descending (LAD) in 2012 with repeat left heart catheterization in August 2017 which revealed an occluded LAD and 95% disease and a moderate sized diagonal vessel, hypertension, diabetes and carotid artery disease status post right transcarotid arterial revascularization today. The patient was reported to be nauseous and diaphoretic post surgery therefore cardiology was consulted for further evaluation. Nausea and diaphoresis-the patient is not having chest pain. Initial troponin was negative. The nausea possibly related to anesthesia given that his symptoms seem to be provoked with movement. Agree with trending troponins. I have ordered a repeat TTE for the patient. Coronary artery disease with known subtotal occluded/occluded LAD and significant disease of a moderate size diagonal -he denies symptoms of angina and shortness of breath at home. He continues to beactive without much issue. -Continue aspirin 81 mg daily, continue Plavix 75 mg daily, continue isosorbide mononitrate 30 mg daily, continue metoprolol succinate 50 mg daily, continue simvastatin. Chronic systolic heart failure with last known LVEF of 35 to 40%-seems to be euvolemic on exam and warm and well-perfused -Continue home dose of Lasix 20 mg twice daily -Continue Entresto 49-51 mg twice daily -Continue Aldactone 25 mg daily -Continue metoprolol succinate 50 mg daily History of LV thrombus-continue Coumadin The following Vizient risk variables were noted and present on admission: No Vizient risk variables were present on admission Please see assessment and plan for further details. Tracy Brian MD [facility] Non-Invasive Cardiology [facility] Heart and Vascular Subjective Reason for Consultation: Nausea and diaphoresis History of Present Illness: Barak Foster is a 66 y.o. male with history of ischemic cardiomyopathy with last known LVEF of 35 to 40%, status post ICD, coronary artery disease status post drug-eluting stent to the left anterior descending (LAD) in 2012 with repeat left heart catheterization in August 2017 which revealed an occluded LAD and 95% disease and a moderate sized diagonal vessel, hypertension, diabetes and carotid artery disease status post right transcarotid arterial revascularization today. The patient was reported to be nauseous and diaphoretic post surgery therefore cardiology was consulted for further evaluation. Regarding his cardiac history he did undergo an a cardiac MRI in 2018 which revealed a large scar in the LAD distribution involving more than 50% of the myocardial thickness. His proximal LAD stent was subtotally occluded in 2018 however given the lack of viability based on MRI it was opted not to pursue PCI in the LAD. Left heart catheterization at that time also revealed 40% disease in the circumflex and a small nondominant RCA. The patient also has a history of LV thrombus and has been on Coumadin since 2013. The patient reports that his nausea has now resolved. He reports that he may have further episodes of nausea with sudden movements. He denies having chest pain. He denies feeling short of breath. He denies lower extremity swelling, PND and orthopnea. He denies palpitations. He denies lightheadedness and dizziness. He denies any episodes of syncope. 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 Imaging: I independently reviewed the EKG and agree with the interpretation(s) with the following comments. 09/18/17 Cardiac MRI IMPRESSION: 1. Large region of ischemic scar involving the LAD distribution, predominantly in the mid anterior and mid anteroseptal [place] and in the apical anterior wall. Most of the infarct appears moderate to severe, involving greater than 50% of the myocardial thickness in portions, and there is a region ofsevere transmural infarct involving the apical anterior wall. 2. Linear intramyocardial enhancement in the mid septum is contiguous in portions with the subendocardial enhancement described above and is favored to represent an unusual pattern of ischemic scar rather than nonischemic etiology. Small linear focus of apparent enhancement in the inferoseptal abhishek suspected to be artifactual. 3. Dilated cardiomyopathy with estimated left ventricular ejection fraction of 25%. Probable mild mitral regurgitation. There are multiple regions of hypokinesis, with the most severe hypokinesis in the region of the above- described infarct, including akinesis of the apical anterior wall. 4. Small bilateral pleural effusions. Question of interstitial pulmonary edema. TTE 08/25/20 Left ventricle is moderately enlarged. Global left ventricular systolic function is moderately reduced with an estimated ejection fraction of 35-40 % . Left atrium is moderately severely dilated. Right atrium is moderately dilated . Pacing lead seen in the right atrium. Mildly dilated right ventricular cavity. Pacemaker / ICD lead seen in right ventricle. Aortic valve leaflets are mildly thickened. No aortic stenosis. Thickened mitral valve leaflets. Mild mitral regurgitation. Review of Systems: Constitution: Negative. HENT: Negative. Cardiovascular: As above. Respiratory: As above. Endocrine: Negative. Skin: Negative. Musculoskeletal: Negative. Gastrointestinal: Nausea as above Genitourinary: Negative. Neurological: Negative. Psychiatric/Behavioral: Negative. Past Medical History: Diagnosis Date Apical 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 Chronic kidney disease Diabetes mellitus (HCC) Hypertension Ischemic cardiomyopathy 2012 Past Surgical History: Procedure Laterality Date ASD REPAIR CARDIAC CATHETERIZATION CARDIAC DEFIBRILLATOR PLACEMENT CHOLECYSTECTOMY 11/2020 Family History Problem Relation Age of Onset Heart attack Mother Diabetes Mother Heart disease Father Pancreatic cancer Sister Colon cancer Sister Social History Tobacco Use Smoking Status Never Smokeless Tobacco Never Allergies: Patient has no known allergies. Current Facility-Administered Medications Medication Dose Route Frequency Provider Last Rate Last Admin HYDROmorphone (DILAUDID) injection 0.25 mg 0.25 mg Intravenous Q5 Min PRN Tin Lei MD labetaloL (NORMODYNE) injection 5 mg 5 mg Intravenous Q5 Min PRN Tin Lei MD [MAR Hold] lactated Ringers infusion 75 mL/hr Intravenous Continuous Shahab Buckley MD 75 mL/hr at 12/28/21 1126 Restarted at 12/28/21 1255 naloxone (NARCAN) injection 0.1 mg 0.1 mg Intravenous PRN Tin Lei MD And naloxone (NARCAN) injection 0.4 mg 0.4 mg Intravenous PRN Tin Lei MD ondansetron (ZOFRAN) injection 4 mg 4 mg Intravenous Q15 Min PRN Tin Lei MD Objective: Physical Examination: BP (!) 142/66 Pulse 80 Temp 97 F (36.1 C) (Oral) Resp 16 Ht 5' 11 Wt 108.6 kg (239 lb 6.7 oz) SpO2 100% BMI 33.39 kg/m Constitutional: Appears well-developed and well-nourished. No distress. HENT: Head: Normocephalic and atraumatic. Eyes: Conjunctivae and EOM are normal. No scleral icterus. Neck: Bandage Cardiovascular: Normal rate and regular rhythm. Exam reveals no gallop and no friction rub. No murmur heard. Pulmonary/Chest: Effort normal and breath sounds normal. No respiratory distress. No wheezes. No rales. Abdominal: Soft. Bowel sounds are normal. There is no abdominal tenderness. Musculoskeletal: Normal range of motion. General: No edema. Neurological: AOx3, moving all ext. Skin: Skin is warm and dry. No rash noted. Psychiatric: Normal mood and affect. Lab Results Component Value Date GLUCOSE 118 (H) 11/26/2021 CALCIUM 9.6 11/26/2021 NA 137 12/28/2021 K 5.2 (H) 12/28/2021 CL 108 12/28/2021 BUN 35 (H) 11/26/2021 CREATININE 1.85 (H) 11/26/2021 No results found for: WBC, HGB, HCT, MCV, EXTMCV, PLT, RBC No results found for: CHOL No results found for: HDL No results found for: LDLCALC No results found for: TRIG No results found for: CHOLHDL Lab Results Component Value Date TROPONINI 33 12/28/2021 No results found for: NTPROBNP [id number] Note* Quick Note - Tiffani Hills RN - 12/28/2021 4:40 PM EDT Notified [facility] of K+ 5.2 and other lab values. [id number] Attending History and physical note* Shahab Buckley MD - 12/28/2021 11:58 AM EDT INTERVAL HISTORY AND PHYSICAL Patient Name: Barak Foster Admit Date: [id number] MR #: [id number] : 1955 The H&P has been reviewed and the patient has been examined. I concur with the findings of the H&P. There are no significant changes. It is appropriate to proceed with the planned procedure. Shahab Buckley MD 12/28/2021 12:43 PM Source Note - Shahab Buckley MD - 12/09/2021 11:05 PM EDT Assessment Symptomatic stenosis of right carotid artery I think the patient would benefit from carotid intervention based on the data from the [place] Stroke and Carotid Endarterectomy Trial. The patient has approximately a 24% probability of stroke over the next 18 months. This is certainly confirmed by his CT angiography. I think that the radiology interpretation of the intracranial stenosis may be artifact. Even if it is present correction of the internal carotid artery bulb stenosis appears to be prudent following national guidelines as evidenced in the literature. Even with intracranial disease fixing the extracranial disease has benefit. I have explained the indications, risks, benefits and alternatives of the planned procedure to the patient. At the completion of his transcarotid arterial revascularization procedure we will do intracranial angiography to further discern the intracranial status of his right internal carotid artery.If this needs intervention we certainly could refer this to neurosurgery in the future. I think the transcarotid arterial revascularization is preferable to carotid endarterectomy becauseof the patient's significant cardiomyopathy and the presence of an AICD for that disorder. Plan: 1. I have started the patient on clopidogrel to facilitate transcarotid arterial revascularization 2. We will stop the patient's warfarin 4 days prior to his transfer carotid arterial revascularization. 3. The patient is on moderate doses of a statin medication simvastatin. Barak Foster 1955 66 y.o. male who presents to the office in followup of his CT angiogram which I have personally reviewed. He does have a very high- grade stenosis of the right internal carotid artery bulb. Furthermore the patient has CT evidence of decreased contrast in his internal carotid artery distally. I think this is predominantly because of the patient's very high-grade stenosis with poor collateralization. There is ulceration of the plaque in the internal carotid artery bulb and I suspect this is the source of his retinal embolization. Past Medical History: Diagnosis Date Apical 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 Chronic kidney disease Diabetes mellitus (HCC) Hypertension Ischemic cardiomyopathy 2012 Past Surgical History: Procedure Laterality Date ASD REPAIR CARDIAC CATHETERIZATION CARDIAC DEFIBRILLATOR PLACEMENT CHOLECYSTECTOMY 11/2020 Current Outpatient Medications Medication Sig Dispense Refill aspirin 81 MG EC tablet Take 81 mg by mouth daily . cholecalciferol, vitamin D3, 1,000 unit tablet Take 2,000 Units by mouth daily . furosemide (LASIX) 20 MG tablet Take 20 mg by mouth 2 (two) times a day 2 tablets AM, 1 tablet PM . gabapentin (NEURONTIN) 300 MG capsule Take 300 mg by mouth every 8 (eight) hours (Days supply per fill: 30) . insulin glargine (LANTUS) 100 unit/mL injection Inject 75 Units under the skin nightly . isosorbide mononitrate (IMDUR) 30 MG 24 hr tablet Take 30 mg by mouth daily . metFORMIN (GLUCOPHAGE) 1000 MG tablet Take 1,000 mg by mouth 2 (two) times a day with meals. metoprolol succinate (TOPROL-XL) 25 MG 24 hr tablet Take 50 mg by mouth daily . sacubitriL-valsartan (ENTRESTO) 49-51 mg per tablet Take 1 tablet by mouth 2 (two) times a day . simvastatin (ZOCOR) 40 MG tablet Take 40 mg by mouth nightly. spironolactone (ALDACTONE) 25 MG tablet Take 25 mg by mouth daily. warfarin (COUMADIN) 5 MG tablet Take 5 mg by mouth daily. clopidogreL (PLAVIX) 75 mg tablet Take 1 (one) tablet (75 mg total) by mouth daily . 90 tablet 11 olmesartan (BENICAR) 20 MG tablet Take 20 mg by mouth daily Not taking . polycarbophil (FIBERCON) 625 mg tablet Take 625 mg by mouth daily Not taking . No current facility-administered medications for this visit. Family History Problem Relation Age of Onset Heart attack Mother Diabetes Mother Heart disease Father Pancreatic cancer Sister Colon cancer Sister Social History Tobacco Use Smoking status: Never Smoker Substance Use Topics Alcohol use: Yes Alcohol/week: 1.0 standard drink Types: 1 Cans of beer per week Review of Systems Constitutional: Negative for decreased appetite, malaise/fatigue and weight loss. HENT: Negative for hearing loss, hoarse voice and nosebleeds. Eyes: Negative for double vision, vision loss in left eye and vision loss in right eye. Cardiovascular: Negative for chest pain, claudication, leg swelling, orthopnea and palpitations. Respiratory: Negative for cough, hemoptysis, shortness of breath and sputum production. Endocrine: Negative for cold intolerance, heat intolerance, polydipsia, polyphagia and polyuria. Hematologic/Lymphatic: Does not bruise/bleed easily. Skin: Negative for poor wound healing, rash and skin cancer. Musculoskeletal: Negative for arthritis, back pain and joint pain. Gastrointestinal: Negative for abdominal pain, hematochezia and melena. Genitourinary: Positive for nocturia (x1). Negative for dysuria, frequency and hematuria. Neurological: Negative for aphonia, brief paralysis and seizures. Psychiatric/Behavioral: Negative for depression and memory loss. The patient is not nervous/anxious. BP 132/87 (BP Location: Left arm, Patient Position: Sitting) Pulse 98 Ht 5' 11 Wt 115.2 kg (254 lb) BMI 35.43 kg/m Physical Exam Constitutional: Appearance: He is well-developed. HENT: Head: Normocephalic and atraumatic. Eyes: General: No scleral icterus. Conjunctiva/sclera: Conjunctivae normal. Pupils: Pupils are equal, round, and reactive to light. Neck: Vascular: Decreased carotid pulses ( As a result of obesity). No carotid bruit or JVD. Cardiovascular: Rate and Rhythm: Normal rate and regular rhythm. Pulses: Carotid pulses are 2+ on the right side and 2+ on the left side. Radial pulses are 2+ on the right side and 2+ on the left side. Femoral pulses are 2+ on the right side and 2+ on the left side. Popliteal pulses are 2+ on the right side and 2+ on the left side. Dorsalis pedis pulses are 2+ on the right side and 2+ on the left side. Posterior tibial pulses are 2+ on the right side and 2+ on the left side. Heart sounds: Heart sounds not distant. No murmur heard. No gallop. Pulmonary: Effort: Pulmonary effort is normal. No respiratory distress. Breath sounds: Normal breath sounds. Chest: Comments: AICD easily palpable in the left infraclavicular fossa. Abdominal: General: Bowel sounds are normal. There is no distension. Palpations: Abdomen is soft. Tenderness: There is no abdominal tenderness. Musculoskeletal: General: No tenderness. Normal range of motion. Cervical back: Normal range of motion and neck supple. Skin: General: Skin is warm and dry. Neurological: Mental Status: He is alert and oriented to person, place, and time. Cranial Nerves: No cranial nerve deficit. Coordination: Coordination normal. Psychiatric: Behavior: Behavior normal. Thought Content: Thought content normal. The note was dictated using [employer] dictation system. The voice recognition software is inherently subject to errors including those of syntax and sound- alike substitutions which may escape proofreading. In such instances, original meaning may be extrapolated by contextual derivation. [id number] Note* Op Note - Shahab Buckley MD - 12/28/2021 11:58 AM EDT Preprocedure diagnosis: Symptomatic laterality right arotid stenosis Post procedure diagnosis: Symptomatic right carotid stenosis Procedures performed: Right Transcarotid arterial revascularization Surgeon: Shahab Buckley M.D. FACS Fluoroscopy dose: 34.15 Gycm2 Contrast: 70 mL of Isovue-300 HISTORY: The patient is a 66year-old gentleman who presents with a high-grade stenosis of the rightinternal carotid artery. Clinical information and imaging suggests that this stenosis is symptomatic. The indications, risks, benefits and alternatives of the trans-carotid arterial revascularizationprocedure based on the data from the NIH submission data from the [place] trial was explained to the patient. We offered the alternatives of carotid endarterectomy and transfemoral stenting. Becauseof the low morbidity and mortality the patient elected to go with the post approval trial sponsoredby the [facility] and [facility] for transcarotid arterial revascularization. PROCEDURE: The patient was brought to the endovascular suite and prepped and draped sterilely. Siteand side verification occurred. The patient had general anesthesia administered. A transverse incision was made between the two heads of the sternocleidomastoid. This was immediately above the clavicle. I dissected through the subcutaneous tissues and reflected the jugular vein laterally. The vagusnerve was left undamaged and undissected. We prepared controlled the common carotid artery and obtained an ACT. It demonstrated sufficient heparinization. I then cannulated the right common femoral vein with a micropuncture needle, an 018 guidewire and a micropuncture sheath under ultrasound guidance. I advanced an 035 J-wire and placed the proprietary Silkroad sheath. It was sewn in place with 2-0 silk suture. I then cannulated the common carotid artery with the proprietary micropuncture needle, an 018 guidewire and a micropuncture sheath under fluoroscopic guidance. Angiography revealed thecervical bifurcation and under fluoroscopic control I advanced the micropuncture sheath into the external carotid artery. I then used the proprietary 035 wire and placed the Silkroad stent delivery sheath into the common carotid artery. It was secured in place with 2-0 Prolene suture. We completed the circuit and verify that there was passive retrograde flow. I then crossclamped the common carotid artery verifying that there was reverse flow angiographically. I then used the [place] 014 guidewire and crossed the area of stenosis under active reverse flow. The tip of the wire was placed in the siphon. We then dilated the area of stenosis with a 4 mm x 3 cm noncompliant rapid exchange balloon. The patient did not have any hemodynamic instability. A 9 mm x 30 mm Silkroad proprietary transcarotid stent was placed. Completion imaging demonstrated a widely patent internal carotid artery without any evidence of residual stenosis. Intracranial imaging demonstrated no evidence of embolization. I discontinued the reversed flow. Flow reversal time was approximately 19 minutes. The carotid sheath was removed and the carotid artery was primarily repaired with interrupted 6-0 Prolene. When hemostasis occurred the cervical wound was closed with 3-0 Vicryl in the platysma muscle. The skin was closed with subcuticular of 3-0 Monocryl appropriate dressing was placed the patient awoke neurologically intact. All sponge and needle counts were correct at the completion of the case. Completion imaging right cervical carotid artery: The right common carotid artery, internal carotidartery and external carotid artery appears to be widely patent. The stent appears to approximate the wall of the internal carotid artery. There is no dissection distal to the stent. Intracranial imaging status post placement of a right carotid stent: Lateral and Donya views of the intracranial circulation was accomplished. The siphon of the internal carotid artery appears to bediseased with approximately a 50% stenosis. The transverse portion of the anterior cerebral artery appears to be widely patent. The anterior cerebral artery appears to be widely patent without evidenc e of embolization. The M1, M2 and M3 portions of the middle cerebral artery appear to be widely patent but diseased. There is normal arborization of the middle cerebral artery without evidence of embolization. The posterior cerebral communicating artery is not visualized. IMPRESSION: Uneventful right transcarotid arterial revascularization for symptomatic carotid occlusive disease. The note was dictated using [employer] dictation system. The voice recognition software is inherently subject to errors including those of syntax and sound- alike substitutions which may escape proofreading. In such instances, original meaning may be extrapolated by contextual derivation. [id number] Note* Brief Op Note - Shahab Buckley MD - 12/28/2021 11:58 AM EDT Brief Post Operative Note Patient Name: Barak Foster : 1955 (66 y.o.) Date of Service: 12/28/2021 CSN: [id number] Procedure(s): TRANSCAROTID ARTERY REVASCULARIZATION ANGIOGRAPHY IMAGING Pre-Operative Diagnoses: * Symptomatic right carotid stenosis Post-Operative Diagnoses: * Symptomatic right carotid stenosis * Symptomatic stenosis of right carotid artery [I65.21] Surgeon(s) and Role: * Shahab Buckley MD - Primary Anesthesiologist: Tin Lei MD CHOIR ACCOMPANIST: Cheyenne Brooks CRNA Student Nurse Foreign Clerk: [facility] Bosom Presser: Yanet Warren, TECHNOLOGIST Scrub Person: Osiris Chapman, TECHNOLOGIST; Miko Grimes, TECHNOLOGIST Document Control Assistant Orientee: Celeste Beltran RN Document Control Assistant Preceptor: Kathi Medina RN Scrub Person Preceptor: [facility] Dav[facility] Scrub Person Orientee: Velma Palumbo RN ORKip PRECEPTOR: Katya Dyer Operative findings: 99% stenosis now completely corrected with BOREMATIC MACHINE OPERATOR/stent right internal carotid artery Intra and immediate post-operative complications: none Type of anesthesia used: General anesthesia Estimated blood loss: 20 mL Implant(s): Implant Name Type Inv. Item Serial No. Wet Cotton Feeder Lot No. LRB No. Used Action STENT 9 X 30MM TRANSCAROTID ENROUTE - SN/A Stent STENT 9 X 30MM TRANSCAROTID ENROUTE N/A [facility] [id number] Right 1 Implanted Wound(s): Wound 12/28/21 1 Surgical Wound Neck Right (Active) Wound Closure Sutures 12/14/21 0002 Wound 12/28/21 2 Surgical Wound Groin Anterior;Right (Active) Wound Closure Sutures;Surgical Adhesive 12/14/21 0002 Shahab Buckley MD 12/28/2021 3:09 PM [id number] History and physical note* Shahab Buckley MD - 12/28/2021 11:58 AM EDT INTERVAL HISTORY AND PHYSICAL Patient Name: Barak Foster Admit Date: [id number] MR #: [id number] : 1955 The H&P has been reviewed and the patient has been examined. I concur with the findings of the H&P. There are no significant changes. It is appropriate to proceed with the planned procedure. Shahab Buckley MD 12/28/2021 12:43 PM Source Note - Shahab Buckley MD - 12/09/2021 11:05 PM EDT Assessment Symptomatic stenosis of right carotid artery I think the patient would benefit from carotid intervention based on the data from the [place] Stroke and Carotid Endarterectomy Trial. The patient has approximately a 24% probability of stroke over the next 18 months. This is certainly confirmed by his CT angiography. I think that the radiology interpretation of the intracranial stenosis may be artifact. Even if it is present correction of the internal carotid artery bulb stenosis appears to be prudent following national guidelines as evidenced in the literature. Even with intracranial disease fixing the extracranial disease has benefit. I have explained the indications, risks, benefits and alternatives of the planned procedure to the patient. At the completion of his transcarotid arterial revascularization procedure we will do intracranial angiography to further discern the intracranial status of his right internal carotid artery.If this needs intervention we certainly could refer this to neurosurgery in the future. I think the transcarotid arterial revascularization is preferable to carotid endarterectomy becauseof the patient's significant cardiomyopathy and the presence of an AICD for that disorder. Plan: 1. I have started the patient on clopidogrel to facilitate transcarotid arterial revascularization 2. We will stop the patient's warfarin 4 days prior to his transfer carotid arterial revascularization. 3. The patient is on moderate doses of a statin medication simvastatin. Barak Foster 1955 66 y.o. male who presents to the office in followup of his CT angiogram which I have personally reviewed. He does have a very high- grade stenosis of the right internal carotid artery bulb. Furthermore the patient has CT evidence of decreased contrast in his internal carotid artery distally. I think this is predominantly because of the patient's very high-grade stenosis with poor collateralization. There is ulceration of the plaque in the internal carotid artery bulb and I suspect this is the source of his retinal embolization. Past Medical History: Diagnosis Date Apical 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 Chronic kidney disease Diabetes mellitus (HCC) Hypertension Ischemic cardiomyopathy 2012 Past Surgical History: Procedure Laterality Date ASD REPAIR CARDIAC CATHETERIZATION CARDIAC DEFIBRILLATOR PLACEMENT CHOLECYSTECTOMY 11/2020 Current Outpatient Medications Medication Sig Dispense Refill aspirin 81 MG EC tablet Take 81 mg by mouth daily . cholecalciferol, vitamin D3, 1,000 unit tablet Take 2,000 Units by mouth daily . furosemide (LASIX) 20 MG tablet Take 20 mg by mouth 2 (two) times a day 2 tablets AM, 1 tablet PM . gabapentin (NEURONTIN) 300 MG capsule Take 300 mg by mouth every 8 (eight) hours (Days supply per fill: 30) . insulin glargine (LANTUS) 100 unit/mL injection Inject 75 Units under the skin nightly . isosorbide mononitrate (IMDUR) 30 MG 24 hr tablet Take 30 mg by mouth daily . metFORMIN (GLUCOPHAGE) 1000 MG tablet Take 1,000 mg by mouth 2 (two) times a day with meals. metoprolol succinate (TOPROL-XL) 25 MG 24 hr tablet Take 50 mg by mouth daily . sacubitriL-valsartan (ENTRESTO) 49-51 mg per tablet Take 1 tablet by mouth 2 (two) times a day . simvastatin (ZOCOR) 40 MG tablet Take 40 mg by mouth nightly. spironolactone (ALDACTONE) 25 MG tablet Take 25 mg by mouth daily. warfarin (COUMADIN) 5 MG tablet Take 5 mg by mouth daily. clopidogreL (PLAVIX) 75 mg tablet Take 1 (one) tablet (75 mg total) by mouth daily . 90 tablet 11 olmesartan (BENICAR) 20 MG tablet Take 20 mg by mouth daily Not taking . polycarbophil (FIBERCON) 625 mg tablet Take 625 mg by mouth daily Not taking . No current facility-administered medications for this visit. Family History Problem Relation Age of Onset Heart attack Mother Diabetes Mother Heart disease Father Pancreatic cancer Sister Colon cancer Sister Social History Tobacco Use Smoking status: Never Smoker Substance Use Topics Alcohol use: Yes Alcohol/week: 1.0 standard drink Types: 1 Cans of beer per week Review of Systems Constitutional: Negative for decreased appetite, malaise/fatigue and weight loss. HENT: Negative for hearing loss, hoarse voice and nosebleeds. Eyes: Negative for double vision, vision loss in left eye and vision loss in right eye. Cardiovascular: Negative for chest pain, claudication, leg swelling, orthopnea and palpitations. Respiratory: Negative for cough, hemoptysis, shortness of breath and sputum production. Endocrine: Negative for cold intolerance, heat intolerance, polydipsia, polyphagia and polyuria. Hematologic/Lymphatic: Does not bruise/bleed easily. Skin: Negative for poor wound healing, rash and skin cancer. Musculoskeletal: Negative for arthritis, back pain and joint pain. Gastrointestinal: Negative for abdominal pain, hematochezia and melena. Genitourinary: Positive for nocturia (x1). Negative for dysuria, frequency and hematuria. Neurological: Negative for aphonia, brief paralysis and seizures. Psychiatric/Behavioral: Negative for depression and memory loss. The patient is not nervous/anxious. BP 132/87 (BP Location: Left arm, Patient Position: Sitting) Pulse 98 Ht 5' 11 Wt 115.2 kg (254 lb) BMI 35.43 kg/m Physical Exam Constitutional: Appearance: He is well-developed. HENT: Head: Normocephalic and atraumatic. Eyes: General: No scleral icterus. Conjunctiva/sclera: Conjunctivae normal. Pupils: Pupils are equal, round, and reactive to light. Neck: Vascular: Decreased carotid pulses ( As a result of obesity). No carotid bruit or JVD. Cardiovascular: Rate and Rhythm: Normal rate and regular rhythm. Pulses: Carotid pulses are 2+ on the right side and 2+ on the left side. Radial pulses are 2+ on the right side and 2+ on the left side. Femoral pulses are 2+ on the right side and 2+ on the left side. Popliteal pulses are 2+ on the right side and 2+ on the left side. Dorsalis pedis pulses are 2+ on the right side and 2+ on the left side. Posterior tibial pulses are 2+ on the right side and 2+ on the left side. Heart sounds: Heart sounds not distant. No murmur heard. No gallop. Pulmonary: Effort: Pulmonary effort is normal. No respiratory distress. Breath sounds: Normal breath sounds. Chest: Comments: AICD easily palpable in the left infraclavicular fossa. Abdominal: General: Bowel sounds are normal. There is no distension. Palpations: Abdomen is soft. Tenderness: There is no abdominal tenderness. Musculoskeletal: General: No tenderness. Normal range of motion. Cervical back: Normal range of motion and neck supple. Skin: General: Skin is warm and dry. Neurological: Mental Status: He is alert and oriented to person, place, and time. Cranial Nerves: No cranial nerve deficit. Coordination: Coordination normal. Psychiatric: Behavior: Behavior normal. Thought Content: Thought content normal. The note was dictated using [employer] dictation system. The voice recognition software is inherently subject to errors including those of syntax and sound- alike substitutions which may escape proofreading. In such instances, original meaning may be extrapolated by contextual derivation. documented in this [id number] Nurse Note* Jessica De León RN - 12/28/2021 10:[address] Martinez completing neurology assessment [id number] Nurse Note* Jessica De León RN - 12/28/2021 10:[address] Martinez completing neurology assessment documented in this [id number] History of Present illness Narrative* Raffy Richardson, [facility] - 12/22/2021 7:40 AM EDT [facility] Medication Management ANTICOAGULATION Referring Provider: Dr. Ayde Nicole GOAL INR: 2.0-3.0 TODAY'S INR: 6.8 WARFARIN Dosage: hold x 2 doses, then hold then 4 doses prior to planned procedure on 12/28/2021; then post-procedure, start 5 mg warfarin on Wednesdays and 2.5 mg all other days of the week. INR (no units) Date Value 12/22/2021 6.8 12/09/2021 3.3 11/16/2021 1.9 10/04/2021 2.7 09/06/2021 3.1 08/10/2021 3.2 07/27/2021 4.2 Medication changes: Started Plavix 75 mg daily on 12/10/2021 Notes: Fingerstick INR drawn per clinic protocol. Patient states no visible blood in urine and no black tarry stool. Denies any missed doses of warfarin. 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 He had a CT scan of the neck in [place] per Dr. Buckley and has a blocked artery (80-99% right carotid stenosis). Barak says he will have a procedure for stent placement on December 28 and needs to stop taking his warfarin for 4 days prior to this procedure. He was started on Plavix 75 mg daily as of 12/10/2021 (which can increase INR) and is likely contributing to his supra-therapeutic INR today. No change in other maintenance medications or in diet. For now, we will hold hiswarfarin dose for the next 2 days and then he will also hold his warfarin for an additional 4 days prior to the planned procedure on 12/28/2021. He will restart his warfarin as soon as Dr. Escalante feels it is safe to do so post-procedurally and we will have him take an 11% lower weekly warfarin regimen than he had previously been taking (since he will be continuing Plavix). When he restarts his warfarin, we will have him take 5 mg warfarin on Wednesdays and 2.5 mg warfarin all other days of the week as noted on his dosing calendar and then we will recheck INR the following week. Patient acknowledges working in consult agreement with pharmacist as referred by his/her physician. For Pharmacy Admin Tracking Only Intervention Detail: Adherence Monitorin and Dose Adjustment: 1, reason: Therapy Optimization Total # of Interventions Recommended: 2 Total # of Interventions Accepted: 2 Time Spent (min): 30 Raffy Richardson RPH, PharmD [facility] this [facility] Phone: [phone]) [phone] Hospital Discharge instructions* Patient Instructions* Raffy Richardson RPH - 12/22/2021 7:40 AM EDT Decrease current dose of warfarin as instructed on dosing calendar provided. Continue to monitor urine and stool for signs and symptoms of bleeding. Please notify the clinic of any medication changes. Please remember to bring all medications (both prescription and OTC) to your next visit. Kindly notify the clinic if you are unable to make to your next appointment. documented in this [facility]KeenSkim Phone: [phone]) 429-465505-14-2022 History of Present illness Narrative* Shahab Buckley MD - 12/18/2021 9:52 PM EDT The following note was created at the request of the patient's insurance company. I have recommended a trans- carotid arterial revascularization because of the patient's known comorbidities most notably his ischemic cardiomyopathy requiring an AICD. This follows national guidelines for the procedure. Our institution is participating in the NIH post approval trial for trans- carotid arterial revascularization. We have been named a center of excellence for trans-carotid arterial revascularization for the last2 years in the [facility]. The institutional complication rate is significantly below 6% requested by the patient's insurance company. documented in this [id number] Evaluation + Plan note* Assessment & Plan Note - Shahab Buckley MD - 12/09/2021 11:07 PM EDT Associated Problem(s): Symptomatic stenosis of right carotid artery I think the patient would benefit from carotid intervention based on the data from the [place] Stroke and Carotid Endarterectomy Trial. The patient has approximately a 24% probability of stroke over the next 18 months. This is certainly confirmed by his CT angiography. I think that the radiology interpretation of the intracranial stenosis may be artifact. Even if it is present correction of the internal carotid artery bulb stenosis appears to be prudent following national guidelines as evidenced in the literature. Even with intracranial disease fixing the extracranial disease has benefit. I have explained the indications, risks, benefits and alternatives of the planned procedure to the patient. At the completion of his transcarotid arterial revascularization procedure we will do intracranial angiography to further discern the intracranial status of his right internal carotid artery.If this needs intervention we certainly could refer this to neurosurgery in the future. I think the transcarotid arterial revascularization is preferable to carotid endarterectomy becauseof the patient's significant cardiomyopathy and the presence of an AICD for that disorder. Plan: 1. I have started the patient on clopidogrel to facilitate transcarotid arterial revascularization 2. We will stop the patient's warfarin 4 days prior to his transfer carotid arterial revascularization. 3. The patient is on moderate doses of a statin medication simvastatin. [id number] Miscellaneous Notes* Assessment & Plan Note - Shahab Buckley MD - 12/09/2021 11:07 PM EDTAssociated Problem(s): Symptomatic stenosis of right carotid artery I think the patient would benefit from carotid intervention based on the data from the [place] Stroke and Carotid Endarterectomy Trial. The patient has approximately a 24% probability of stroke over the next 18 months. This is certainly confirmed by his CT angiography. I think that the radiology interpretation of the intracranial stenosis may be artifact. Even if it is present correction of the internal carotid artery bulb stenosis appears to be prudent following national guidelines as evidenced in the literature. Even with intracranial disease fixing the extracranial disease has benefit. I have explained the indications, risks, benefits and alternatives of the planned procedure to the patient. At the completion of his transcarotid arterial revascularization procedure we will do intracranial angiography to further discern the intracranial status of his right internal carotid artery.If this needs intervention we certainly could refer this to neurosurgery in the future. I think the transcarotid arterial revascularization is preferable to carotid endarterectomy becauseof the patient's significant cardiomyopathy and the presence of an AICD for that disorder. Plan: 1. I have started the patient on clopidogrel to facilitate transcarotid arterial revascularization 2. We will stop the patient's warfarin 4 days prior to his transfer carotid arterial revascularization. 3. The patient is on moderate doses of a statin medication simvastatin. documented in this [id number] History of Present illness Narrative* Shahab Buckley MD - 12/09/2021 11:05 PM EDT Assessment Symptomatic stenosis of right carotid artery I think the patient would benefit from carotid intervention based on the data from the [place] Stroke and Carotid Endarterectomy Trial. The patient has approximately a 24% probability of stroke over the next 18 months. This is certainly confirmed by his CT angiography. I think that the radiology interpretation of the intracranial stenosis may be artifact. Even if it is present correction of the internal carotid artery bulb stenosis appears to be prudent following national guidelines as evidenced in the literature. Even with intracranial disease fixing the extracranial disease has benefit. I have explained the indications, risks, benefits and alternatives of the planned procedure to the patient. At the completion of his transcarotid arterial revascularization procedure we will do intracranial angiography to further discern the intracranial status of his right internal carotid artery.If this needs intervention we certainly could refer this to neurosurgery in the future. I think the transcarotid arterial revascularization is preferable to carotid endarterectomy becauseof the patient's significant cardiomyopathy and the presence of an AICD for that disorder. Plan: 1. I have started the patient on clopidogrel to facilitate transcarotid arterial revascularization 2. We will stop the patient's warfarin 4 days prior to his transfer carotid arterial revascularization. 3. The patient is on moderate doses of a statin medication simvastatin. Barak Foster 1955 66 y.o. male who presents to the office in followup of his CT angiogram which I have personally reviewed. He does have a very high- grade stenosis of the right internal carotid artery bulb. Furthermore the patient has CT evidence of decreased contrast in his internal carotid artery distally. I think this is predominantly because of the patient's very high-grade stenosis with poor collateralization. There is ulceration of the plaque in the internal carotid artery bulb and I suspect this is the source of his retinal embolization. Past Medical History: Diagnosis Date Apical 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 Chronic kidney disease Diabetes mellitus (HCC) Hypertension Ischemic cardiomyopathy 2012 Past Surgical History: Procedure Laterality Date ASD REPAIR CARDIAC CATHETERIZATION CARDIAC DEFIBRILLATOR PLACEMENT CHOLECYSTECTOMY 11/2020 Current Outpatient Medications Medication Sig Dispense Refill aspirin 81 MG EC tablet Take 81 mg by mouth daily . cholecalciferol, vitamin D3, 1,000 unit tablet Take 2,000 Units by mouth daily . furosemide (LASIX) 20 MG tablet Take 20 mg by mouth 2 (two) times a day 2 tablets AM, 1 tablet PM . gabapentin (NEURONTIN) 300 MG capsule Take 300 mg by mouth every 8 (eight) hours (Days supply per fill: 30) . insulin glargine (LANTUS) 100 unit/mL injection Inject 75 Units under the skin nightly . isosorbide mononitrate (IMDUR) 30 MG 24 hr tablet Take 30 mg by mouth daily . metFORMIN (GLUCOPHAGE) 1000 MG tablet Take 1,000 mg by mouth 2 (two) times a day with meals. metoprolol succinate (TOPROL-XL) 25 MG 24 hr tablet Take 50 mg by mouth daily . sacubitriL-valsartan (ENTRESTO) 49-51 mg per tablet Take 1 tablet by mouth 2 (two) times a day . simvastatin (ZOCOR) 40 MG tablet Take 40 mg by mouth nightly. spironolactone (ALDACTONE) 25 MG tablet Take 25 mg by mouth daily. warfarin (COUMADIN) 5 MG tablet Take 5 mg by mouth daily. clopidogreL (PLAVIX) 75 mg tablet Take 1 (one) tablet (75 mg total) by mouth daily . 90 tablet 11 olmesartan (BENICAR) 20 MG tablet Take 20 mg by mouth daily Not taking . polycarbophil (FIBERCON) 625 mg tablet Take 625 mg by mouth daily Not taking . No current facility-administered medications for this visit. Family History Problem Relation Age of Onset Heart attack Mother Diabetes Mother Heart disease Father Pancreatic cancer Sister Colon cancer Sister Social History Tobacco Use Smoking status: Never Smoker Substance Use Topics Alcohol use: Yes Alcohol/week: 1.0 standard drink Types: 1 Cans of beer per week Review of Systems Constitutional: Negative for decreased appetite, malaise/fatigue and weight loss. HENT: Negative for hearing loss, hoarse voice and nosebleeds. Eyes: Negative for double vision, vision loss in left eye and vision loss in right eye. Cardiovascular: Negative for chest pain, claudication, leg swelling, orthopnea and palpitations. Respiratory: Negative for cough, hemoptysis, shortness of breath and sputum production. Endocrine: Negative for cold intolerance, heat intolerance, polydipsia, polyphagia and polyuria. Hematologic/Lymphatic: Does not bruise/bleed easily. Skin: Negative for poor wound healing, rash and skin cancer. Musculoskeletal: Negative for arthritis, back pain and joint pain. Gastrointestinal: Negative for abdominal pain, hematochezia and melena. Genitourinary: Positive for nocturia (x1). Negative for dysuria, frequency and hematuria. Neurological: Negative for aphonia, brief paralysis and seizures. Psychiatric/Behavioral: Negative for depression and memory loss. The patient is not nervous/anxious. BP 132/87 (BP Location: Left arm, Patient Position: Sitting) Pulse 98 Ht 5' 11 Wt 115.2 kg (254 lb) BMI 35.43 kg/m Physical Exam Constitutional: Appearance: He is well-developed. HENT: Head: Normocephalic and atraumatic. Eyes: General: No scleral icterus. Conjunctiva/sclera: Conjunctivae normal. Pupils: Pupils are equal, round, and reactive to light. Neck: Vascular: Decreased carotid pulses ( As a result of obesity). No carotid bruit or JVD. Cardiovascular: Rate and Rhythm: Normal rate and regular rhythm. Pulses: Carotid pulses are 2+ on the right side and 2+ on the left side. Radial pulses are 2+ on the right side and 2+ on the left side. Femoral pulses are 2+ on the right side and 2+ on the left side. Popliteal pulses are 2+ on the right side and 2+ on the left side. Dorsalis pedis pulses are 2+ on the right side and 2+ on the left side. Posterior tibial pulses are 2+ on the right side and 2+ on the left side. Heart sounds: Heart sounds not distant. No murmur heard. No gallop. Pulmonary: Effort: Pulmonary effort is normal. No respiratory distress. Breath sounds: Normal breath sounds. Chest: Comments: AICD easily palpable in the left infraclavicular fossa. Abdominal: General: Bowel sounds are normal. There is no distension. Palpations: Abdomen is soft. Tenderness: There is no abdominal tenderness. Musculoskeletal: General: No tenderness. Normal range of motion. Cervical back: Normal range of motion and neck supple. Skin: General: Skin is warm and dry. Neurological: Mental Status: He is alert and oriented to person, place, and time. Cranial Nerves: No cranial nerve deficit. Coordination: Coordination normal. Psychiatric: Behavior: Behavior normal. Thought Content: Thought content normal. The note was dictated using [employer] dictation system. The voice recognition software is inherently subject to errors including those of syntax and sound- alike substitutions which may escape proofreading. In such instances, original meaning may be extrapolated by contextual derivation. documented in this [id number] History of Present illness Narrative* Raffy Richardson [facility] - 12/09/2021 7:40 AM EDT [facility] Medication Management ANTICOAGULATION Referring Provider: Dr. Ayde Nicole GOAL INR: 2.0-3.0 TODAY'S INR: 3.3 WARFARIN Dosage: hold x 1 dose, then resume 5 mg Tues/Sat and 2.5 mg all other days of the week INR (no units) Date Value 12/09/2021 3.3 11/16/2021 1.9 10/04/2021 2.7 09/06/2021 3.1 08/10/2021 3.2 07/27/2021 4.2 06/07/2021 3.1 Medication changes: None Notes: Fingerstick INR drawn per clinic protocol. Patient states no visible blood in urine and no black tarry stool. Denies any missed doses of warfarin. 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 Barak says he had a CT scan of the neck in [place] earlier this week per Dr. Buckley and has a blocked artery . Upon further chart review, it was noted that he has 80-99% right carotid stenosis. Barak says he will have a procedure for stent placement either December 14 or December 28 and is supposed to hear back by the end of this week . Knowing that he will be starting Plavix 75 mg daily post stent placement (which can increase INR), we will need to take this into consideration for future warfarin dosing. Barak says he will notify our clinic when he is given the confirmed date for this procedure since he will need to stop his warfarin for 4 days prior to this procedure. No change in other maintenance medications or in diet. For now, we will hold his warfarin dose for tonight, but then resume current weekly warfarin dosing as noted on his dosing calendar and adjust as necessary depending on when he will be starting the Plavix post-procedure. We will recheck INR in 4 weeks (or sooner if procedure is going to be scheduled next week). Patient herlinda remyledges working in consult agreement with pharmacist as referred by his/her physician. For Pharmacy Admin Tracking Only Intervention Detail: Adherence Monitorin and Dose Adjustment: 1, reason: Therapy Optimization Total # of Interventions Recommended: 2 Total # of Interventions Accepted: 2 Time Spent (min): 30 Raffy Richardson RPH, PharmD [facility] Phone: [phone] Hospital Discharge instructions* Patient Instructions* Raffy Richardson RPH - 12/09/2021 7:40 AM EDT Decrease current dose of warfarin as instructed on dosing calendar provided. Continue to monitor urine and stool for signs and symptoms of bleeding. Please notify the clinic of any medication changes. Please remember to bring all medications (both prescription and OTC) to your next visit. Kindly notify the clinic if you are unable to make to your next appointment. documented in this [facility] Phone: [phone]) 320-589805-04-2022 Instructions* Patient Instructions* Sophia Gomse MA - 12/08/2021 3:52 PM EDT How to contact your Care Team: Provider: MD Kelle Hogan CNP Jill Bender, PA Nurse: Angeles Samano RN To reschedule office appointments call Scheduling [phone] In case of an emergency please call 911. When in need of refills please call the phone number listed above. Please include medication name, pharmacy name and specify 30 or 90 day supply Please check with your pharmacy within 24 hours of your request for refill. You must follow up as directed to continue current refills. Thank you! documented in this [id number] History of Present illness Narrative* Rfafy Richardson RPH - 11/16/2021 8:00 AM EDT [facility] Medication Management ANTICOAGULATION Referring Provider: Dr. Ayde Vigesaa GOAL INR: 2.0-3.0 TODAY'S INR: 1.9 WARFARIN Dosage: 5 mg x 1 booster dose, then resume 5 mg Tues and Sat and 2.5 mg daily all other days of the week INR (no units) Date Value 11/16/2021 1.9 10/04/2021 2.7 09/06/2021 3.1 08/10/2021 3.2 07/27/2021 4.2 06/07/2021 3.1 04/23/2021 2.6 Medication changes: None Notes: Fingerstick INR drawn per clinic protocol. Patient states no visible blood in urine and no black tarry stool. Denies any missed doses of warfarin. No change in other maintenance medications kita diet. Since his INR has dropped sub-therapeutic today and he takes his warfarin in the AM, we will have him take 5 mg warfarin today and tomorrow x 1 booster dose, but then resume current weekly warfarin regimen thereafter as noted on his dosing calendar. We will recheck INR in 3 weeks. Patient acknowledges working in consult agreement with pharmacist as referred by his/her physician. For Pharmacy Admin Tracking Only Intervention Detail: Adherence Monitorin and Dose Adjustment: 1, reason: Therapy Optimization Total # of Interventions Recommended: 2 Total # of Interventions Accepted: 2 Time Spent (min): 30 Raffy Richardson RPH, PharmD [facility]: [phone] Hospital Discharge instructions* Patient Instructions* Raffy Richardson RPH - 11/16/2021 8:00 AM EDT Increase current dose of warfarin as instructed on dosing calendar provided. Continue to monitor urine and stool for signs and symptoms of bleeding. Please notify the clinic of any medication changes. Please remember to bring all medications (both prescription and OTC) to your next visit. Kindly notify the clinic if you are unable to make to your next appointment. documented [facility] this [facility]: 1(527) 284-878201-04-2022 History of Present illness Narrative* Raffy Richardson, [facility] - 08/10/2021 8:00 AM EST [facility] Medication Management ANTICOAGULATION Referring Provider: Dr. Ayde Nicole GOAL INR: 2.0-3.0 TODAY'S INR: 3.2 WARFARIN Dosage: HOLD x 1 dose, then resume 5 mg and Mon and 2.5 mg daily all other days of the week INR (no units) Date Value 08/10/2021 3.2 07/27/2021 4.2 06/07/2021 3.1 04/23/2021 2.6 03/01/2021 2.8 01/19/2021 2.6 12/29/2020 3.8 Medication changes: None Notes: Fingerstick INR drawn per clinic protocol. Patient states no visible blood in urine and no black tarry stool. Denies any missed doses of warfarin. As discussed during his last visit, Barak hadreceived his COVID booster vaccination on 07/16/2021 and was down for days . He had said all his bones hurt and he was extremely tired and dizzy for about a week . He had lost his sense of taste and says its still not right mostly in the AM and at night , but he says his appetite is pretty much back to normal. He had lost 7 pounds, but is back up 1 pound today. His pulse rate is fluctuating between the low 40's on our BP monitor today, but he reports feeling fine and says he checks it at home and its always between 60 and 80 . He says he took his AM medications at 7 AM (1 hour prior to his visit today) so he will monitor his BP and pulse over the next several days at home and call Dr. Nicole's office if it remains low or he develops symptoms. No change in other maintenance medications or in diet. Barak says he takes his warfarin in the AM and has already taken his dose this morning. No change in other maintenance medications or in diet. We will HOLD his warfarin dose for tomorrow, but then resume 5 mg warfarin on Tuesdays and Saturdays and 2.5 mg warfarin all other days of the week as noted on his dosing calendar and then recheck INR in 4 weeks. Patient acknowledges working in consult agreement with pharmacist as referred by his/her physician. For Pharmacy Admin Tracking Only Intervention Detail: Adherence Monitorin and Dose Adjustment: 1, reason: Therapy Optimization Total # of Interventions Recommended: 2 Total # of Interventions Accepted: 2 Time Spent (min): 30 Raffy Richardson RPH, PharmD documented in this [employer] Phone: [phone] 194-639001-04-2022 Hospital Discharge instructions* Patient Instructions* Raffy Richardson RPH - 08/10/2021 8:00 AM EST Decrease current dose of warfarin as instructed on dosing calendar provided. Continue to monitor urine and stool for signs and symptoms of bleeding. Please notify the clinic of any medication changes. Please remember to bring all medications (both prescription and OTC) to your next visit. Kindly notify the clinic if you are unable to make to your next appointment. documented in this [employer] Phone: [phone]) 151-853911-01-2021 History of Present illness Narrative* Raffy Richardson RPH - 06/07/2021 7:30 AM EDT [facility] Medication Management ANTICOAGULATION Referring Provider: Dr. Ayde Nicole GOAL INR: 2.0-3.0 TODAY'S INR: 3.1 WARFARIN Dosage: 2.5 mg warfarin x 2 doses, then resume 5 mg Tues and Sat and 2.5 mg daily all other days of the week INR (no units) Date Value 06/07/2021 3.1 04/23/2021 2.6 03/01/2021 2.8 01/19/2021 2.6 12/29/2020 3.8 11/17/2020 2.9 11/09/2020 2.6 10/06/2020 2.7 Medication changes: None Notes: Fingerstick INR drawn per clinic protocol. Patient states no visible blood in urine and no black tarry stool. Denies any missed doses of warfarin. All medications reviewed for accuracy. Barak says he took an Aleve last week one day and developed a nosebleed later that day. I have recommended that he try to use Tylenol for pain relief instead of Aleve or any other NSAID. No change in other maintenance medications or in diet. Since his INR is slightly supra-therapeutic today, we will have him take 2.5 mg warfarin tonight and tomorrow, but then resume current weekly warfarin regimen thereafter as noted on his dosing calendar. We will recheck INR in 6 weeks. Patient acknowledges roberta fernandez in consult agreement with pharmacist as referred by his/her physician. For Pharmacy Admin Tracking Only Intervention Detail: Adherence Monitorin Total # of Interventions Recommended: 1 Total # of Interventions Accepted: 1 Time Spent (min): 30 Raffy Richardson RPH, PharmD [facility] this [facility]: [phone] Hospital Discharge instructions* Patient Instructions* Raffy Richardson RPH - 06/07/2021 7:30 AM EDT Continue current dose of warfarin as instructed on dosing calendar provided. Continue to monitor urine and stool for signs and symptoms of bleeding. Please notify the clinic of any medication changes. Please remember to bring all medications (both prescription and OTC) to your next visit. Kindly notify the clinic if you are unable to make to your next appointment. [facility] this [facility] Phone: [phone]) 233-153509-17-2021 History of Present illness Narrative* Raffy Richardson RPH - 04/23/2021 7:30 AM EDT [facility] Medication Management ANTICOAGULATION Referring Provider: Dr. Ayde Nicole GOAL INR: 2.0-3.0 TODAY'S INR: 2.6 WARFARIN Dosage: 5 mg Tues and Sat and 2.5 mg daily all other days of the week INR (no units) Date Value 04/23/2021 2.6 03/01/2021 2.8 01/19/2021 2.6 12/29/2020 3.8 11/17/2020 2.9 11/09/2020 2.6 10/06/2020 2.7 Medication changes: None Notes: Fingerstick INR drawn per clinic protocol. Patient states no visible blood in urine and no black tarry stool. Denies any missed doses of warfarin. No change in other maintenance medications kita diet. Will recheck INR in 6 weeks. Patient acknowledges working in consult agreement with pharmacist as referred by his/her physician. For Pharmacy Admin Tracking Only Intervention Detail: Adherence Monitorin Total # of Interventions Recommended: 1 Total # of Interventions Accepted: 1 Time Spent (min): 30 Raffy Richardson RPH, PharmD documented in this [employer] Phone: [phone]) [phone] Hospital Discharge instructions* Patient Instructions* Raffy Richardson RPH - 04/23/2021 7:30 AM EDT Continue current dose of warfarin as instructed on dosing calendar provided. Continue to monitor urine and stool for signs and symptoms of bleeding. Please notify the clinic of any medication changes. Please remember to bring all medications (both prescription and OTC) to your next visit. Kindly notify the clinic if you are unable to make to your next appointment. documented in this [employer] Phone: [phone]) 270-234107-26-2021 History of Present illness Narrative* Lorri Carmen [facility] - 03/01/2021 10:30 AM EDT [facility] [facility]TICO[facility]UL[facility] Referring Provider: Dr. Ayde Nicole GOAL INR: 2.0-3.0 TODAY'S INR: 2.8 WARFARIN Dosage: 5 mg Tues and Sat and 2.5 mg daily all other days of the week INR (no units) Date Value 03/01/2021 2.8 01/19/2021 2.6 12/29/2020 3.8 11/17/2020 2.9 11/09/2020 2.6 10/06/2020 2.7 08/14/2020 2.8 POC INR (no units) Date Value 11/23/2020 1.1 Medication changes: none Notes: Fingerstick INR drawn per clinic protocol. Patient states no visible blood in urine and no black tarry stool. Denies any missed doses of warfarin. No change in other maintenance medications kita diet. Barak will see Dr. Nicole after our appointment today. Since Barak's INR remains therapeutic, we will continue current weekly warfarin regimen and will recheck INR in 6 weeks. Patient acknowledges working in consult agreement with pharmacist as referred by his/her physician. For Pharmacy Admin Tracking Only Intervention Detail: Adherence Monitorin Total # of Interventions Recommended: 0 Total # of Interventions Accepted: 0 Time Spent (min): 30 Lorri Carmen RPH, PharmD documented in this [facility] Phone: [phone]) 372-538407-26-2021 Hospital Discharge instructions* Patient Instructions* Lorri Carmen RPH - 03/01/2021 10:30 AM EDT Continue current dose of warfarin as instructed on dosing calendar provided. Continue to monitor urine and stool for signs and symptoms of bleeding. Please notify the clinic of any medication changes. Please remember to bring all medications (both prescription and OTC) to your next visit. Kindly notify the clinic if you are unable to make to your next appointment. [facility] this [facility]: [phone] History of Present illness Narrative* Raffy Richardson, SARAH - 12/29/2020 8:00 AM EDT [facility] Medication Management ANTICOAGULATION Referring Doctor: Dr. Ayde Nicole GOAL INR: 2-3 TODAY'S INR: 3.8 WARFARIN Dosage: HOLD x 1 dose, then resume 5 mg Monday and Monday and 2.5 mg all other days of the week INR (no units) Date Value 12/29/2020 3.8 11/17/2020 2.9 11/09/2020 2.6 10/06/2020 2.7 08/14/2020 2.8 05/14/2020 2.7 04/02/2020 2.8 Medication changes: None Notes: Fingerstick INR drawn per clinic protocol. Patient states no visible blood in urine and no black tarry stool. All other medications reviewed for accuracy. No reported changes in other medications or in diet. As discussed during his last visit, Barak had a cholelithiasis procedure on 11/23/[address] Ayde Matthews DO at [facility]. His surgery was initially scheduled for last spring but was cancelled and postponed due to concerns with COVID. Barak says there were no complications post-surgery, but his diet is little different because he has to watch what (he) eats more closely. He says he did have some loose stools post-surgery, but his bowels are pretty much back to normal again. He had been having epigastric pain, mostly after eating, but says that is just now starting to get a little better. Barak says he skipped his warfarin and aspirin for 5 days (from 11/18/2020 through 11/23/2020) prior to the procedure and then resumed his previously stable weekly dose after surgery as noted on his dosing calendar. Since his INR has jumped supra-therapeutic today, but has been stable on this weekly dose of warfarin for over 2 years, we will have him HOLD his warfarin dose tomorrow (since he takes his warfarin in the AM and has already taken his dose today). Thereafter, he will resume current weekly warfarin regimen and we will recheck INR in 3 weeks to reassess further warfarin dosing at that time. Patient acknowledges working in consult agreement with pharmacist as referred by his/her physician. CLINICAL PHARMACY CONSULT: MED RECONCILIATION/REVIEW ADDENDUM For Pharmacy Admin Tracking Only Intervention Detail: Adherence Monitorin and Dose Adjustment: 1: reason: Therapy Optimization Total # of Interventions Recommended: 2 Total # of Interventions Accepted: 2 Time Spent (min): 30 Raffy Richardson RPH, PharmD documented in this [employer] Phone: [phone]) [phone] Hospital Discharge instructions* Patient Instructions* Raffy Richardson RPH - 12/29/2020 8:00 AM EDT Decrease current dose of warfarin as instructed on dosing calendar provided. Continue to monitor urine and stool for signs and symptoms of bleeding. Please notify the clinic of any medication changes. Please remember to bring all medications (both prescription and OTC) to your next visit. Kindly notify the clinic if you are unable to make to your next appointment. documented in this [employer] Phone: [phone]) 277-468204-19-2021 History of Present illness Narrative* Bethanie Giordano RN - 11/23/2020 10:12 AM EDT Patient transferred to room 60 via stretcher for phase 2. documented in this [employer] Phone: [phone] History of Present illness Narrative* Raffy Richardson RPH - 09/02/2019 11:30 AM EST Fingerstick INR drawn per clinic protocol. Patient states no visible blood in urine and no black tarry stool. Denies any missed doses of warfarin. No change in other maintenance medications or in diet. Will continue current warfarin regimen and recheck INR in 6 weeks. Patient acknowledges working in consult agreement with pharmacist as referred by his/her physician. documented in this [employer] Phone: [phone]) [phone] Hospital Discharge instructions* Patient Instructions* Raffy Richardson RPH - 09/02/2019 11:30 AM EST Continue current dose of warfarin as instructed on dosing calendar provided. Continue to monitor urine and stool for signs and symptoms of bleeding. Please notify the clinic of any medication changes. Please remember to bring all medications (both prescription and OTC) to your next visit. Kindly notify the clinic if you are unable to make to your next appointment. documented in this [facility]Ke[facility] Phone: [phone] History of Present illness Narrative* Meka Eagle, RN - 08/19/2019 11:16 AM EST Pt reports little tightness in chest after Lexiscan administered. 11:22 Pt denies chest pain or shortness of breath now. documented in this [facility]Ke[facility] Phone: [phone]) [phone] Hospital Discharge instructions* Instructions* Eloina Pat MD - 08/12/2019 Lasix 20 mg take 2 tablets in a.m. and 1 tablet p.m. for one week Repeat Bilirubin tomorrow. Follow-up with Dr. Talbert on * Attachments The following attachments cannot be sent through Care Everywhere. * Gallstones ([place]) documented in this [facility]KeenSk[facility] Phone: evaluation note* Diagnosis Post-op pain- Primary Other acute postoperative pain Recurrent biliary colic Calculus of gallbladder without mention of cholecystitis or obstruction Sludge in gallbladder Calculus of gallbladder without mention of cholecystitis or obstruction documented in this encounter [employer] Phone: evaluation note* Diagnosis LV (left ventricular) 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- Primary Acute myocardial infarction, unspecified site, episode of care unspecified retirement (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 Long-term (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 documented in this encounter [employer] Phone: evaluation note* Diagnosis ICD (implantable cardioverter-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 artery 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, unspecified vessel or lesion type Hypertension, unspecified type Vitamin D deficiency disease Unspecified vitamin D deficiency documented in this encounter [employer] Phone: evaluation note* Diagnosis ICD (implantable cardioverter-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 artery 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, unspecified vessel or lesion type Hypertension, unspecified type Vitamin D deficiency disease Unspecified vitamin D deficiency documented in this encounter [employer] Phone: evaluation note* Diagnosis LV (left ventricular) 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- Primary Acute myocardial infarction, unspecified site, episode of care 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 Long-term (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 documented in this encounter [employer] Phone: evaluation note* Diagnosis LV (left ventricular) 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- Primary Acute myocardial infarction, unspecified site, episode of care unspecified retirement (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 Long-term (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 documented in this encounter [employer] Phone: evaluation note* Diagnosis LV (left ventricular) 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- Primary Acute myocardial infarction, unspecified site, episode of care 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 Long-term (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 documented in this encounter [employer] Phone: evaluation note* Diagnosis LV (left ventricular) 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- Primary Acute myocardial infarction, unspecified site, episode of care unspecified retirement (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 Long-term (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 documented in this encounter [employer] Phone: evaluation note* Diagnosis Central artery occlusion of retina, left documented in this encounter [employer] Phone: evaluation note* Diagnosis Acute on chronic congestive heart failure, unspecified heart failure type (HCC)- Primary Coronary artery 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, unspecified vessel or lesion type Hypertension, unspecified type Other specified diabetes mellitus without complication, with long-term current use of insulin (HCC) Cardiomyopathy, unspecified type (HCC) Shortness of breath Elevated bilirubin Disorders of bilirubin excretion Calculus of gallbladder without cholecystitis without obstruction Calculus of gallbladder without mention of cholecystitis or obstruction documented in this encounter [employer] Phone: evaluation note* Diagnosis Elevated bilirubin Disorders of bilirubin excretion Calculus of gallbladder without cholecystitis without obstruction Calculus of gallbladder without mention of cholecystitis or obstruction documented in this encounter [employer] Phone: [email or web address] note* Diagnosis Shortness of breath documented in this encounter [employer] Phone: [email or web address] note* Diagnosis Cardiomyopathy, unspecified type (HCC) Shortness of breath documented in this encounter [employer] Phone: [email or web address] note* Diagnosis retirement (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 Long-term (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 LV (left ventricular) 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 Acute myocardial infarction, unspecified site, episode of care unspecified documented in this encounter [employer] Phone: [email or web address] note* Diagnosis ICD (implantable cardioverter-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 artery 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, unspecified vessel or lesion type Hypertension, unspecified type Vitamin D deficiency disease Unspecified vitamin D deficiency Shortness of breath documented in this encounter [employer] Phone: [email or web address] note* Diagnosis LV (left ventricular) 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- Primary Acute myocardial infarction, unspecified site, episode of care 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 Long-term (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 documented in this encounter [employer] Phone: [email or web address] note* Diagnosis Elevated serum creatinine- Primary Other nonspecific findings on examination of blood Atherosclerosis of right carotid artery [facility] Diagnosis Symptomatic stenosis of right carotid artery [facility]* Diagnosis Symptomatic stenosis of right carotid artery- Primary Symptomatic stenosis of right carotid artery [facility] Diagnosis LV (left ventricular) 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- Primary Acute myocardial infarction, unspecified site, episode of care 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 Long-term (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 documented in this encounter [employer] Phone: [email or web address] note* Diagnosis Symptomatic stenosis of right carotid artery- Primary Carotid stenosis, symptomatic w/o infarct, right Symptomatic stenosis of right carotid artery [facility]* Diagnosis Left arm pain- Primary Pain in limb documented in this encounter [employer] Phone: [email or web address] note* Diagnosis Left arm pain Pain in limb documented in this encounter [email or web address] Phone: evaluation note* Diagnosis LV (left ventricular) 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- Primary Acute myocardial infarction, unspecified site, episode of care 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 Long-term (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 documented in this encounter [email or web address] Phone: evaluation note* Diagnosis LV (left ventricular) 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- Primary Acute myocardial infarction, unspecified site, episode of care unspecified retirement (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 Long-term (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 documented in this encounter [email or web address] Phone: evaluation note* Diagnosis Carotid stenosis, symptomatic w/o infarct, right- Primary Symptomatic stenosis of right carotid artery [facility]* Diagnosis ICD (implantable cardioverter-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 artery 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, unspecified vessel or lesion type Hypertension, unspecified type Vitamin D deficiency disease Unspecified vitamin D deficiency Cardiomyopathy, unspecified type (HCC) SOB (shortness of breath) Shortness of breath documented in this encounter [email or web address] Phone: evaluation note* Diagnosis LV (left ventricular) 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- Primary Acute myocardial infarction, unspecified site, episode of care unspecified retirement (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 Long-term (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 documented in this encounter [email or web address] Phone: [email or web address] note* Diagnosis ICD (implantable cardioverter-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 artery 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, unspecified vessel or lesion type Hypertension, unspecified type Vitamin D deficiency disease Unspecified vitamin D deficiency Cardiomyopathy, unspecified type (HCC) SOB (shortness of breath) Shortness of breath Other specified diabetes mellitus without complication, with long-term current use of insulin (HCC) documented in this encounter [email or web address] Phone: evaluation note* Diagnosis Coronary artery disease, unspecified vessel or lesion type, unspecified whether angina present, unspecified whether [place] or transplanted heart documented in this encounter [facility] [employer] Phone: evaluation note* Diagnosis LV (left ventricular) 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- Primary Acute myocardial infarction, unspecified site, episode of care 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 Long-term (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 documented in this encounter [facility] [employer] Phone: [email or web address] note* Diagnosis LV (left ventricular) 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- Primary Acute myocardial infarction, unspecified site, episode of care unspecified retirement (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 Long-term (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 documented in this encounter [facility] [employer] Phone: [email or web address] note* Diagnosis Carotid stenosis, symptomatic w/o infarct, right- Primary Left carotid stenosis documented in this encounter [facility] note* Diagnosis ICD (implantable cardioverter-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 artery 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, unspecified vessel or lesion type Hypertension, unspecified type Vitamin D deficiency disease Unspecified vitamin D deficiency Cardiomyopathy, unspecified type ([facility]) documented in this encounter [facility] [employer] [facility]* Diagnosis Heart disease- Primary Heart disease, unspecified documented in this encounter [facility] note* Diagnosis Frequent PVCs- Primary Other premature beats documented in this encounter [facility] note* Diagnosis Chronic systolic HF (heart failure) (HCC)- Primary Chronic systolic heart failure Dysuria Frequent PVCs Other premature beats Chronic combined systolic and diastolic congestive heart failure (HCC) Chronic combined systolic and diastolic heart failure Cardiomyopathy, nonischemic (HCC) Other primary cardiomyopathies documented in this encounter [facility] note* Diagnosis Paroxysmal atrial fibrillation (HCC)- Primary Atrial fibrillation Pre-op exam Preoperative examination, unspecified documented in this encounter [facility] note* Diagnosis Chronic systolic HF (heart failure) (HCC)- Primary Chronic systolic heart failure Paroxysmal atrial fibrillation (HCC) Atrial fibrillation Cardiomyopathy, nonischemic (HCC) Other primary cardiomyopathies Frequent PVCs Other premature beats documented in this encounter [facility] note* Diagnosis Chronic systolic HF (heart failure) (HCC)- Primary Chronic systolic heart failure Coronary artery disease involving [place] coronary artery of [place] heart without angina pectoris Atrial fibrillation, chronic (HCC) Atrial fibrillation [facility] Instructions* Karl Taveras RN - 11/23/2020 No alcoholic beverages, no driving or operating machinery, no making important decisions for 24 hours. Call your doctor for the following: Chills Temperature greater than 101 Pain that is not tolerable despite taking pain medicine as ordered There is increased swelling, redness or warmth at surgical site There is increased drainage or bleeding from surgical site Do not remove surgical dressing unless instructed to do so by your surgeon No alcoholic beverages, no driving or operating machinery, no making important decisions for 24 hours. Children should maintain quiet play ( games, movies, books ) for 24 hours. You may have a normal diet but should eat lightly day of surgery. Drink plenty of fluids. Urinate within 8 hours after surgery, if unable to urinate call your doctor You may have a normal diet but should eat lightly day of surgery. Drink plenty of fluids. Urinate within 8 hours after surgery, if unable to urinate call your doctor Patient Discharge Instructions Discharge Date: 11/23/2020 HYGEINE: Ok to shower, no soaking in a tub/pool until seen at your follow up appointment. Clean incision daily with gentle soap and water, do not use alcohol/peroxide or any harsh cleansers. DRIVING: No driving while taking narcotic medications or while in pain, abstain from critical decision making for 24hrs until anesthesia wears off. ACTIVITY: No lifting greater than 10lbs for 6 weeks or any strenuous activity until you are clearedby Dr. Matthews. Limit straining during bowel movements, should you require a laxative we recommendover the counter miralax or milk of magnesia. DIET: Resume your normal diet as tolerated, limit fatty meals and greasy foods. MEDICATIONS: You may resume your coumadin and aspirin 11/24/20 SPECIAL INSTRUCTIONS: Follow-up Follow up with your primary care physician in one week. Follow up with Dr. Matthews in 1 week. If you don't already have a scheduled appointment, please call the office. Call Your Doctor If Any of the Following Occurs Monitor your recovery once you leave the hospital. If any of the following occur, call your doctor: Signs of infection, including fever above 100.5F Redness, swelling, increasing pain, excessive bleeding, or any discharge from the incision site Persistent nausea and/or vomiting Pain that you can't control with the medications you've been given Shortness of breath and/or chest pain Tachycardia (racing heart sensation) unrelieved by rest Pain, redness and/or swelling in your feet or legs Sudden onset of severe left shoulder pain or severe abdominal pain Any symptoms that are causing you concern In case of an emergency, call 911 immediately. Children should maintain quiet play ( games, movies, books ) for 24 hours. You may have a normal diet but should eat lightly day of surgery. Drink plenty of fluids. No alcoholic beverages, no driving or operating machinery, no making important decisions for 24 hours. Urinate within 8 hours after surgery, if unable to urinate call your doctor [facility] Phone: reason for referral (narrative)* Diagnostic Procedure Only (Routine) - Closed Specialty Diagnoses / Procedures Referred By Trang giraldo Referred To Contact [facility]LECULAR [facility] FUNCTIONAL IMAGING Diagnoses Heart disease Procedures NM PET/CT CARDIAC VIABILITY MYOCRD IMG PET PRFUJ W/METAB 2RTRACER CNCRNT CT Venus Willoughby MD [address] [place] [address] Molecular & Functional Imaging [address] [place] [address] Referral ID Status Reason Start Date Expiration Date V isits Requested Visits Authorized [id number] Closed Auto-Generate d Referral 03/21/2023 04/19/2024 3 3 [facility] for visit Narrative* Auth/Cert Specialty Diagnoses / Procedures Referred By Trang giraldo Referred To Contact Diagnoses Symptomatic stenosis of right carotid artery Procedures TRANSCAROTID ARTERY REVASCULARIZATION Shahab Buckley MD [address] [place] [id number] Referral ID Status Reason Start Date Expiration Date Visits Re quested Visits Authorized [id number] 12/14/2021 1 1 [facility] Assessments Diagnosis Ischemic cardiomyopathy Other specified forms of chronic ischemic heart disease Diagnosis Kidney insufficiency Unspecified disorder of kidney and ureter 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 Long-term (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 LV (left ventricular) 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 Acute myocardial infarction, unspecified site, episode of care unspecified Diagnosis ICD (implantable cardioverter-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 artery 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, unspecified vessel or lesion type Hypertension, unspecified type Vitamin D deficiency disease Unspecified vitamin D deficiency Shortness of breath Diagnosis Cardiomyopathy, unspecified type (HCC) SOB (shortness of breath) Shortness of breath Diagnosis ICD (implantable cardioverter-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 artery 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, unspecified vessel or lesion type Hypertension, unspecified type Vitamin D deficiency disease Unspecified vitamin D deficiency Other specified diabetes mellitus without complication, with long-term current use of insulin (HCC) Diagnosis ICD (implantable cardioverter-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 artery 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, unspecified vessel or lesion type Hypertension, unspecified type Vitamin D deficiency disease Unspecified vitamin D deficiency Other specified diabetes mellitus without complication, with long-term current use of insulin (HCC) Diagnosis retirement (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 Long-term (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 LV (left ventricular) 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 Acute myocardial infarction, unspecified site, episode of care unspecified Diagnosis ICD (implantable cardioverter-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 artery 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, unspecified vessel or lesion type Hypertension, unspecified type Vitamin D deficiency disease Unspecified vitamin D deficiency Shortness of breath Diagnosis retirement (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 Long-term (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 LV (left ventricular) 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 Acute myocardial infarction, unspecified site, episode of care unspecified Diagnosis Epigastric pain Abdominal pain, epigastric Summary Purpose Family History No Family History Records FoundUnknown Family Member Name Dates Details Family history of pancreatic cancer: Sister(V16.0, Z80.0) Status:Active Family history of malignant neoplasm of prostate: Father(V16.42, Z80.42) Status:Active Family history of coronary a rtery disease: Mother(V17.3, Z82.49) Status:Active Family history of diabetes m ellitus: Mother(V18.0, Z83.3) Status:Active Unknown Family Member Name Dates Details Family history of pancreatic cancer: Sister(V16.0, Z80.0) Status:Active Family history of malignant neoplasm of prostate: Father(V16.42, Z80.42) Status:Active Family history of coronary a rtery disease: Mother(V17.3, Z82.49) Status:Active Family history of diabetes m ellitus: Mother(V18.0, Z83.3) Status:Active Advance Directives No Advanced Directives Records FoundDocuments on File Type Date Recorded Patient Retail Director Expl anation Advance Directives and Living Will Power of Marble Machine Operator Documents on File Type Date Recorded Patient Retail Director Expl anation Advance Directives and Living Will Power of Marble Machine Operator Documents on File Type Date Recorded Patient Retail Director Expl anation ACP-Advance Directive ACP-Power of Marble Machine Operator Documents on File Type Date Recorded Patient Retail Director Expl anation ACP-Advance Directive ACP-Power of Marble Machine Operator Documents on File Type Date Recorded Patient Retail Director Expl anation Advance Directives and Livin g Will 11/26/2021 3:28 PM Documents on File Type Date Recorded Patient Retail Director Expl anation Advance Directives and Livin g Will 12/06/2021 11:14 AM Latest Code Status on File Code Status Date Activated Date Inactivated Comments Full Code 12/28/2021 3:21 PM 12/29/2021 1:40 PM Latest Code Status on File Code Status Date Activated Date Inactivated Comments Full Code 12/28/2021 3:21 PM 12/29/2021 1:40 PM Latest Code Status on File Code Status Date Activated Date Inactivated Comments Full Code 12/28/2021 3:21 PM 12/29/2021 1:40 PM Latest Code Status on File Code Status Date Activated Date Inactivated Comments Full Code 12/28/2021 3:21 PM 12/29/2021 1:40 PM Latest Code Status on File Code Status Date Activated Date Inactivated Comments Full Code 03/25/2023 7:26 AM Question Answer Comments Full Code Order Discussed With: Patient Latest Code Status on File Code Status Date Activated Date Inactivated Comments Full Code 03/25/2023 7:26 AM 04/13/2023 5:35 PM Question Answer Comments Full Code Order Discussed With: Patient Latest Code Status on File Code Status Date Activated Date Inactivated Comments Full Code 03/25/2023 7:26 AM 04/13/2023 5:35 PM Question Answer Comments Full Code Order Discussed With: Patient Discharge Instructions * Patient Instructions* Lorri Carmen, [facility] - 10/17/2019 7:30 AM EDT Continue current dose of warfarin as instructed on dosing calendar provided. Continue to monitor urine and stool for signs and symptoms of bleeding. Please notify the clinic of any medication changes. Please remember to bring all medications (both prescription and OTC) to your next visit. Kindly notify the clinic if you are unable to make to your next appointment. documented in this encounter* Patient Instructions* Lorri Carmen RP - 01/09/2020 7:30 AM EDT Continue current dose of warfarin as instructed on dosing calendar provided. Continue to monitor urine and stool for signs and symptoms of bleeding. Please notify the clinic of any medication changes. Please remember to bring all medications (both prescription and OTC) to your next visit. Kindly notify the clinic if you are unable to make to your next appointment. documented in this encounter* Patient Instructions* Lorri Carmen [facility] - 02/20/2020 7:30 AM EDT Continue current dose of warfarin as instructed on dosing calendar provided. Continue to monitor urine and stool for signs and symptoms of bleeding. Please notify the clinic of any medication changes. Please remember to bring all medications (both prescription and OTC) to your next visit. Kindly notify the clinic if you are unable to make to your next appointment. documented in this encounter* Patient Instructions* Lorri Carmen [facility] - 04/02/2020 7:30 AM EDT Continue current dose of warfarin as instructed on dosing calendar provided. Continue to monitor urine and stool for signs and symptoms of bleeding. Please notify the clinic of any medication changes. Please remember to bring all medications (both prescription and OTC) to your next visit. Kindly notify the clinic if you are unable to make to your next appointment. documented in this encounter* Patient Instructions* Lorri Carmen RP - 05/14/2020 7:30 AM EDT Continue current dose of warfarin as instructed on dosing calendar provided. Continue to monitor urine and stool for signs and symptoms of bleeding. Please notify the clinic of any medication changes. Please remember to bring all medications (both prescription and OTC) to your next visit. Kindly notify the clinic if you are unable to make to your next appointment. documented in this encounter* Patient Instructions* Raffy Richardson, [facility] - 08/14/2020 9:45 AM EST Continue current dose of warfarin as instructed on dosing calendar provided. Continue to monitor urine and stool for signs and symptoms of bleeding. Please notify the clinic of any medication changes. Please remember to bring all medications (both prescription and OTC) to your next visit. Kindly notify the clinic if you are unable to make to your next appointment. documented in this encounter* Patient Instructions* Raffy Richardson [facility] - 06/03/2019 12:18 PM EDT Continue current dose of warfarin as instructed on dosing calendar provided. Continue to monitor urine and stool for signs and symptoms of bleeding. Please notify the clinic of any medication changes. Please remember to bring all medications (both prescription and OTC) to your next visit. Kindly notify the clinic if you are unable to make to your next appointment. documented in this encounter* Patient Instructions* Lorri Carmen [facility] - 04/11/2019 7:35 AM EDT Continue current dose of warfarin as instructed on dosing calendar provided. Continue to monitor urine and stool for signs and symptoms of bleeding. Please notify the clinic of any medication changes. Please remember to bring all medications (both prescription and OTC) to your next visit. Kindly notify the clinic if you are unable to make to your next appointment. documented in this encounter* Instructions* Mary Fernando APRN - [facility] - 11/04/2020 Images from the original note were not included. Preoperative Instructions: Stop eating solid foods at midnight the night prior to surgery. Stop drinking clear liquids at midgnight the night prior to surgery. (Follow bowel prep instructions if instructed by your surgeon.) Arrive at the surgery center (Entrance B) by 5:45 AM on 11/23/2020 (or as directed by your surgeon'soffice). If you have been given a blood band, you must bring it with you the day of surgery. Please stop any blood thinning medications as directed by your surgeon or prescribing physician. Failure to stop certain medications may interfere with your scheduled surgery. These may include: Aspirin, Warfarin (Coumadin), Clopidogrel (Plavix), Ibuprofen (Motrin, Advil), Naproxen (Aleve), Meloxicam (Mobic), Celecoxib (Celebrex), Eliquis, Pradaxa, Xarelto, Effient, Fish Oil, Herbal supplements. PLEASE HOLD ASPIRIN AND PLAVIX DIRECTED BY YOUR PRESCRIBING PHYSICIAN You may continue the rest of your medications through the night before surgery unless instructed otherwise. Please take only the following medication(s) the day of surgery with a small sip of water: Imdur, Entresto, Gabapentin (Neurontin) Please use and bring inhalers the day of surgery. Please bring CPAP the day of surgery. 11/09/20 9:03 AM Signature (Patient) Signature/date(Provider) REMINDERS: If you are going home the day of your procedure, you will need a friend or family member to drive you home after your procedure. Your sales route driver must be 18 years of age or older and able to sign off on your discharge instructions. Taxi cabs or any form of public transportation is not acceptable. It is preferable that the friend or family member stay at the hospital throughout your procedure. If you are going home the same day as your procedure, someone must remain with you for the first24 hours after your surgery if you receive anesthesia or sedation. If you do not have someone to stay with you, your procedure may be cancelled. Please do not wear any jewelry or body piercings the day of surgery. PREPARING FOR YOUR SURGERY: Before surgery, you can play an important role in your own health. Because skin is not sterile, we need to be sure that your skin is as free of germs as possible before surgery by carefully washing before surgery. Preparing or prepping skin before surgery can reduce the risk of a surgical site infection. Do not shave the area of your body where your surgery will be performed unless you received specific permission from your physician. You will need to shower at home the night before surgery and the morning of surgery with a special soap called chlorhexidine gluconate (CHG*). *Not to be used by people allergic to Chlorhexidine Gluconate (CHG). Following these instructions will help you be sure that your skin is clean before surgery. Instructions on cleaning your skin before surgery: The night before your surgery: You will need to shower with warm water (not hot) and the CHG soap. Use a clean wash cloth and a clean towel. Have clean clothes available to put on after the shower. First wash your hair with regular shampoo. Rinse your hair and body thoroughly to remove the shampoo. Wash your face with your regular soap or water only. Thoroughly rinse your body with warm water from the neck down. Turn water off to prevent rinsing the soap off too soon. With a clean wet washcloth and half of the CHG soap in the bottle, lather your entire body from theneck down. Do not use CHG soap near your eyes or ears to avoid injury to those areas. Wash thoroughly, paying special attention to the area where your surgery will be performed. Wash your body gently for five (5) minutes. Avoid scrubbing your skin too hard. Turn the water back on and rinse your body thoroughly. Pat yourself dry with a clean, soft towel. Do not apply lotion, cream or powder. Dress with clean freshly washed clothes. The morning of surgery: Repeat shower following steps above - using remaining half of CHG soap in bottle. If you have any questions, call the Pre-Admission Testing Unit at [phone]. Day of Surgery/Procedure As a patient at [facility] you can expect quality medical and nursing care that is centered on your individual needs. Our goal is to make your surgical experience as comfortableas possible . Directions to the Surgery Center [facility] is located at [address] [place] [address]. Please pull into the Emergency parking lot and stop at the data processing operator mejias. We offer free data processing operator service for all our surgery patients, if you choose not to have data processing operator parking we have additional parking across the street.You will enter the facility following the [facility] sign. Please stop at the data governance analyst desk where you will be checked in by the staff. If you have any questions please call [phone]. Transportation after your procedure. You will need a friend or family member to drive you home after your procedure. Your sales route driver must be18 years of age or older and able to sign off on your discharge instructions. Taxi cabs or any formof public transportation is not acceptable. It is preferable that the friend or family member stay at the hospital throughout your procedure. Someone must remain at home with you for the first 24 hours after your surgery if you receive anesthesia or sedation. If you do not have someone to stay with you, your procedure may be cancelled. Patient Instructions If you are having any type of anesthesia you are to have nothing to eat or drink after midnight thenight before your surgery. This includes gum, mints, water or smoking or chewing tobacco. The only exception to this is a small sip of water to take with any morning dose of heart, blood pressure, orseizure medications. Bring a list of all medications you take, along with the dose of the medications and how often you take it. If more convenient bring the pharmacy bottles in a zip lock bag. Please shower the night before and the morning of surgery with an antibacterial soap. Please use the wipes given to you the night before your surgery after your shower. Unless otherwise told by your physician, please do not shave legs or any part of your body below your neck the night before or dayof your surgery. You may shave your face or neck. Kelly your teeth but do not swallow water. Bring your inhaler if you are currently using one. Bring your eyeglasses and case with you. No contacts are to be worn the day of surgery. You also may bring your hearing aids. Bring your blood band if one has been given to you. Please do not close the clasp. If you are on C-PAP or Bi-PAP at home and plan on staying in the hospital overnight for your surgery please bring the machine with you. Do not wear any jewelry or body piercings day of surgery. Also, NO lotion, perfume or deodorant to be used the day of surgery. Do not bring any valuables, such as jewelry, sky or credit cards. If you are staying overnight with us, please bring a SMALL bag of personal items. We cannot accommodate large items, like suitcases. Please wear loose, comfortable clothing. If you are potentially going to have a cast or brace bringclothing that will fit over them. In case of illness If you have cold or flu like symptoms (high fever, runny nose, sore throat, cough, etc.) rash, nausea, vomiting, loose stools, and/or recent contact with someone who has a contagious disease (chicken pox, measles, etc.) Please call your doctor before coming to the hospital. If your child is having surgery please make arrangements for any other children to be cared for at home on the day of surgery. Other children are not permitted in recovery room and we want you to be able to spend time with the patient. If other arrangements are not available then we suggest that you have a second adult to stay in the waiting room. If you have any other questions regarding your procedure or the day of surgery, please call [phone], or [phone] documented in this encounter* Patient Instructions* Raffy Rihcardson RPH - 11/17/2020 8:00 AM EDT Continue to follow the dose of warfarin as instructed on dosing calendar provided. Continue to monitor urine and stool for signs and symptoms of bleeding. Please notify the clinic of any medication changes. Please remember to bring all medications (both prescription and OTC) to your next visit. Kindly notify the clinic if you are unable to make to your next appointment. documented in this encounter History of Present Illness * Lorri Carmen RP - 10/17/2019 7:30 AM EDT Fingerstick INR drawn per clinic protocol. Patient states no visible blood in urine and no black tarry stool. Denies any missed doses of warfarin. No change in diet. Barak is now taking entresto 49/51 twice daily. Barak states his breathing is much better and he has increased stamina. Barak continues on lasix 40 mg daily and will see Dr. Nicole again on 11/19/2019. Barak's weight is up 10 pounds in the last 6 weeks. Barak is scheduled for laparoscopic robotic cholecystectomy with Dr. Wagner Jose on . Barak states he was instructed to stop taking warfarin and aspirin as of 10/18/2019, 6 days prior to the procedure. Since Barak's INR remains therapeutic, we will continue current weekly warfarin regimen and recheck INR in 6 week(s). Patient acknowledges working in consult agreement with pharmacist as referred by his/her physician. CLINICAL PHARMACY CONSULT: MED RECONCILIATION/REVIEW ADDENDUM For Pharmacy Admin Tracking Only PHSO: No Total # of Interventions Recommended: 0 - Discontinued Medication #: 1 Discontinue Reason(s): Duplicate - Maintenance Safety Lab Monitoring #: 1 Total Interventions Accepted: 0 Time Spent (min): 15 Lorri Carmen PharmD [facility] Clinical Pharmacy documented in this encounter* Lorri Carmen RP - 01/09/2020 7:30 AM EDT Fingerstick INR drawn per clinic protocol. Patient states no visible blood in urine and no black tarry stool. Denies any missed doses of warfarin. No change in other maintenance medications or in diet. Barak states his gallbladder removal surgery was cancelled because of COVID. Since Barak's INR remains therapeutic, we will continue current weekly warfarin regimen and recheck INR in 6 week(s). Patient acknowledges working in consult agreement with pharmacist as referred by his/her physician. CLINICAL PHARMACY CONSULT: MED RECONCILIATION/REVIEW ADDENDUM For Pharmacy Admin Tracking Only PHSO: No Total # of Interventions Recommended: 0 - Maintenance Safety Lab Monitoring #: 1 Total Interventions Accepted: 0 Time Spent (min): 15 Lorri Carmen PharmD [facility] Clinical Pharmacy documented in this encounter* Lorri Carmen RP - 02/20/2020 7:30 AM EDT Fingerstick INR drawn per clinic protocol. Patient states no visible blood in urine and no black tarry stool. Denies any missed doses of warfarin. No change in other maintenance medications or in diet. Barak is scheduled to see Dr. Nicole on 03/02/2020. Since Barak's INR remains therapeutic, we will continue current weekly warfarin regimen and recheck INR in 6 week(s). Patient acknowledges working in consult agreement with pharmacist as referred by his/her physician. CLINICAL PHARMACY CONSULT: MED RECONCILIATION/REVIEW ADDENDUM For Pharmacy Admin Tracking Only PHSO: No Total # of Interventions Recommended: 0 - Maintenance Safety Lab Monitoring #: 1 Total Interventions Accepted: 0 Time Spent (min): 30 [facility]D [facility] documented in this encounter* Lorri Carmen RPH - 04/02/2020 7:30 AM EDT Fingerstick INR drawn per clinic protocol. Patient states no visible blood in urine and no black tarry stool. Denies any missed doses of warfarin. No change in other maintenance medications or in diet. Barak saw Dr. Nicole on 03/02. Since Barak's INR remains therapeutic, we will continue current weekly warfarin regimen and recheck INR in 6 week(s). Patient acknowledges working in consult agreement with pharmacist as referred by his/her physician. CLINICAL PHARMACY CONSULT: MED RECONCILIATION/REVIEW ADDENDUM For Pharmacy Admin Tracking Only PHSO: No Total # of Interventions Recommended: 0 - Maintenance Safety Lab Monitoring #: 1 Total Interventions Accepted: 0 Time Spent (min): 30 Lorri Carmen PharmD [facility] Clinical Pharmacy documented in this encounter* Lorri Carmen RP - 05/14/2020 7:30 AM EDT Fingerstick INR drawn per clinic protocol. Patient states no visible blood in urine and no black tarry stool. Denies any missed doses of warfarin. No change in other maintenance medications or in diet. Since Amauris INR remains therapeutic, we will continue current weekly warfarin regimen and recheck INR in 6 week(s). Patient acknowledges working in consult agreement with pharmacist as referred by his/her physician. CLINICAL PHARMACY CONSULT: MED RECONCILIATION/REVIEW ADDENDUM For Pharmacy Admin Tracking Only PHSO: No Total # of Interventions Recommended: 0 - Maintenance Safety Lab Monitoring #: 1 Total Interventions Accepted: 0 Time Spent (min): 30 Lorri Carmen PharmD [facility] Clinical Pharmacy documented in this encounter* Raffy Richardson RPH - 08/14/2020 9:45 AM EST Venipuncture INR drawn per [facility] lab protocol. All communication is with the patient via thephone. Patient states no visible blood in urine and no black tarry stool. Denies any missed doses of warfarin. No change in other maintenance medications or in diet. Will continue current warfarin regimen and recheck INR in 6 weeks. Patient acknowledges working in consult agreement with pharmacist as referred by his/her physician. We want to confirm that, for purposes of billing, this is a virtual visit with your provider for which we will submit a claim for reimbursement with your insurance company. You may be responsible forany copays, coinsurance amounts or other amounts not covered by your insurance company. If you do not accept this, unfortunately we will not be able to schedule a virtual visit with the provider. CLINICAL PHARMACY CONSULT: MED RECONCILIATION/REVIEW ADDENDUM For Pharmacy Admin Tracking Only PHSO: No Total # of Interventions Recommended: 1 - Maintenance Safety Lab Monitoring #: 1 Total Interventions Accepted: 1 Time Spent (min): 30 Raffy Richardson PharmD documented in this encounter* Raffy Richardson RP - 06/03/2019 12:18 PM EDT Fingerstick INR drawn per clinic protocol. Patient states no visible blood in urine and no black tarry stool. Denies any missed doses of warfarin. No change in other maintenance medications or in diet. Barak will have a device check in Dr. Nicole's office after this appointment. Since his INR remains therapeutic today, we will continue current weekly warfarin regimen and recheck INR in 6 weeks. Patient acknowledges working in consult agreement with pharmacist as referred by his/her physician documented in this encounter* Lorri Carmen, [facility] - 04/11/2019 7:35 AM EDT Fingerstick INR drawn per clinic protocol. Patient states no visible blood in urine and no black tarry stool. Denies any missed doses of warfarin. No change in other maintenance medications or in diet. Barak saw Dr. Nicole on 03/04/19. Since Barak's INR remains therapeutic, we will continue currentweekly warfarin regimen and recheck INR in 6 week(s). Patient acknowledges working in consult agreement with pharmacist as referred by his/her physician. documented in this encounter* Alaina West, CARRIE - 11/09/2020 1:30 PM EDT Per Alpesh, [employer], OK to use Magnet DOS PRN. He doesn't need to be here. 1-800- Cardiac documented in this encounter* Raffy Richardson, [facility] - 11/17/2020 8:00 AM EDT [facility] Medication Management ANTICOAGULATION Referring Doctor: Dr. Ayde Nicole GOAL INR: 2-3 TODAY'S INR: 2.9 WARFARIN Dosage: 5 mg Monday and Monday and 2.5 mg all other days of the week INR (no units) Date Value 11/17/2020 2.9 11/09/2020 2.6 10/06/2020 2.7 08/14/2020 2.8 05/14/2020 2.7 04/02/2020 2.8 02/20/2020 2.8 Medication changes: None Notes: Fingerstick INR drawn per clinic protocol. Patient states no visible blood in urine and no black tarry stool. Denies any missed doses of warfarin. Barak had an initial consultation with Dr. Ayde Matthews DO at [facility] on 10/15/2020 and has a cholelithiasis scheduled for 11/23/2020. He says this surgery was initially scheduled for last spring but was cancelled and postponed due to concerns with COVID. He does have epigastric pain, mostly after eating and was notedto have gallstones per ultrasound. Barak will need to stop his warfarin and aspirin for 5 days prior to this procedure and was cleared by ocular care aide, Dr. Nicole, without the need for bridge therapy with LMWH. No change in other maintenance medications or in diet. Barak will take his last dose ofwarfarin tonight and then skip warfarin for the next 5 days pre-procedurally. He will restart his warfarin and aspirin as soon as Dr. Matthews feels it is safe to do so post-procedurally and will continue to follow his current warfarin dosing regimen as noted on the doing calendar. We will recheck INR in 6 weeks. Patient acknowledges working in consult agreement with pharmacist as referred by his/her physician. 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 artery 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, unspecified vessel or lesion type Hypertension, unspecified type Vitamin D deficiency disease Shortness of breath Procedures EKG 12 Lead Rafa Nicole MD [address] [place] [id number] Status Reason Specialty Diagnoses / Procedures Referred By Contact Referred To Contact Closed Cardiology / Echocardiography Diagnoses Cardiomyopathy, unspecified type (HCC) SOB (shortness of breath) Procedures ECHO Complete 2D W Doppler W Color Rafa Nicole MD [address] [place] [address] [facility] [address] [place] [address] Status Reason Specialty Diagnoses / Procedures Referre d By Contact Referred To Contact Open Cardiology Diagnoses ICD (implantable cardioverter-defibrill ator) in place Coronary artery 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, unspecified vessel or lesion type Hypertension, unspecified type Vitamin D deficiency disease Other specified diabetes mellitus without complication, with long-term current use of insulin (HCC) Procedures EKG 12 Lead Rafa Nicole MD [address] [place] [address] Status Reason Specialty Diagnoses / Procedures Referre d By Contact Referred To Contact Closed Radiology Diagnoses Epigastric pain Procedures US GALLBLADDER RUQ Ayde Matthews, [address] [facility] [address] [place] [address] [facility] [address] [place] [id number] Status Reason Specialty Diagnoses / Procedures Referre d By Contact Referred To Contact Open Cardiology Diagnoses ICD (implantable cardioverter-defibrill ator) in place Coronary artery 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, unspecified vessel or lesion type Hypertension, unspecified type Vitamin D deficiency disease Procedures EKG 12 Lead Rafa Nicole MD [address] [place] [address] Specialty Diagnoses / Procedures Referred By Contac t Referred To Contact Vascular Lab Diagnoses Central artery occlusion of retina, left Procedures VL DUP CAROTID BILATERAL Jeff Cerda MD [address] [place] [address] Referral ID Status Reason Start Date Expiration Date Visits Re quested Visits Authorized [id number] Open 10/26/2021 10/26/2022 1 1 Status Reason Specialty Diagnoses / Procedures Referred By Contact Referred To Contact Pending Review Cardiology Diagnoses Coronary artery 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, unspecified vessel or lesion type Hypertension, unspecified type Other specified diabetes mellitus without complication, with long-term current use of insulin (HCC) Cardiomyopathy, unspecified type (HCC) Shortness of breath Procedures EKG 12 Lead Rafa Nicole MD [address] [place] [address] Status Reason Specialty Diagnoses / Procedures Referre d By Contact Referred To Contact Closed Cardiology Diagnoses Shortness of breath Procedures Stress test, lexiscan HC NM SEST. REST STRESS MULT CHG MYOCARDIAL SPECT MULTIPLE STUDIES Rafa Nicole MD [address] [place] [address] [facility] [address] [facility] [place] [address] Status Reason Specialty Diagnoses / Procedures Referre d By Contact Referred To Contact Closed Cardiology Diagnoses Cardiomyopathy, unspecified type (HCC) Shortness of breath Procedures ECHO Complete 2D W Doppler W Color HC ECHO NO CONTRAST WITH DOP/COLR WI ECHO HEART XTHORACIC,COMPLETE W DOPPLER Rafa Nicole MD [address] [place] [address] [facility] [address] [facility] [place] [address] Specialty Diagnoses / Procedures Referred By Contac t Referred To Contact Cardiology Diagnoses Carotid stenosis, symptomatic w/o infarct, right Procedures Ultrasound doppler carotid Mary Jane Rodriguez PA-C [address] [place] [address] Referral ID Status Reason Start Date Expiration Date V isits Requested Visits Authorized [id number] Pending Review 01/29/2022 01/29/2023 1 1 Specialty Diagnoses / Procedures Referred By Contac t Referred To Contact Radiology Diagnoses Left arm pain Procedures VL DUP UPPER EXTREMITY VENOUS LEFT Lonnie Hart MD [address] [place] [address] [place] [address] Referral ID Status Reason Start Date Expiration Date Visits Re quested Visits Authorized [id number] Open 01/07/2022 01/07/2023 1 1 Referral ID Status Reason Start Date Expiration Date Visits Re quested Visits Authorized [id number] Closed 01/07/2022 01/07/2023 1 1 Specialty Diagnoses / Procedures Referred By Contac t Referred To Contact Cardiology Diagnoses Carotid stenosis, symptomatic w/o infarct, right Procedures Carotid Duplex Shahab Buckley MD [address] [place] [address] Referral ID Status Reason Start Date Expiration Date V isits Requested Visits Authorized [id number] Authorized 02/11/2022 02/11/2023 1 1 Specialty Diagnoses / Procedures Referred By Contac t Referred To Contact Cardiology Diagnoses ICD (implantable cardioverter-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 artery 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, unspecified vessel or lesion type Hypertension, unspecified type Vitamin D deficiency disease Cardiomyopathy, unspecified type (HCC) SOB (shortness of breath) Procedures EKG 12 Lead Rafa Nicole MD [address] [place] [address] Referral ID Status Reason Start Date Expiration Date Visits Re quested Visits Authorized [id number] Open 01/30/2022 01/30/2023 1 1 Referral ID Status Reason Start Date Expiration Date V isits Requested Visits Authorized [id number] Authorized 08/26/2022 08/26/2023 1 1 Specialty Diagnoses / Procedures Referred By Contac t Referred To Contact Chandni Vitale MD [address] [place] [address] Referral ID Status Reason Start Date Expiration Date V isits Requested Visits Authorized [id number] Pending Review 1 1 Specialty Diagnoses / Procedures Referred By Contac t Referred To Contact Procedures CARDIOVASCULAR MEDICINE OP FOLLOW UP APPT ORDER Anamaria Ta, [employer] [address] [place] [address] Referral ID Status Reason Start Date Expiration Date Visits Requested Visits Authorized [id number] Ref Not Required PCP Requested Referral 3 06/15/2024 1 1 Specialty Diagnoses / Procedures Referred By Contac t Referred To Contact Procedures CARDIOVASCULAR MEDICINE OP FOLLOW UP APPT ORDER Yannick Zuñiga, PA-C [address] [place] [address] Referral ID Status Reason Start Date Expiration Date Visits Requested Visits Authorized [id number] Ref Not Required PCP Requested Referral 3 06/26/2024 1 1 Specialty Diagnoses / Procedures Referred By Trang giraldo Referred To Contact Procedures CARDIOVASCULAR MEDICINE OP FOLLOW UP APPT ORDER Carolina Barger MD [address] [place] [address] Referral ID Status Reason Start Date Expiration Date Visits Requested Visits Authorized [id number] Ref Not Required PCP Requested Referral 01/11/2024 07/11/2024 1 1 Additional Source Comments (unrecognized sect ion and content) No Status Records FoundNo Status Records FoundNo Status Records FoundNo Status Records FoundNo Status Records FoundNo Status Records FoundNo Status Records FoundNo Status Records FoundNo Status Records FoundNo Status Records FoundNo Status Records FoundNo Status Records FoundNo Status Records FoundNo Status Records Found INFORMATION SOURCE (unrecogn ized section and content) DATE CREATED AUTHOR 01/29/2018 [facility] DATE CREATED AUTHOR AUTHOR'S ORGANIZ ATION 01/29/2018 [facility] DATE CREATED AUTHOR AUTHOR'S ORGANIZ ATION 01/30/2018 [facility] DATE CREATED AUTHOR AUTHOR'S ORGANIZ ATION 02/08/2018 [facility] DATE CREATED AUTHOR AUTHOR'S ORGANIZ ATION 11/25/2020 [facility] DATE CREATED AUTHOR AUTHOR'S ORGANIZ ATION 01/30/2021 [facility] DATE CREATED AUTHOR AUTHOR'S ORGANIZ ATION 08/31/2022 [facility] DATE CREATED AUTHOR AUTHOR'S ORGANIZ ATION 08/31/2022 [facility] DATE CREATED AUTHOR AUTHOR'S ORGANIZ ATION 01/14/2023 [facility] DATE CREATED AUTHOR AUTHOR'S ORGANIZ ATION 03/16/2023 [facility] DATE CREATED AUTHOR AUTHOR'S ORGANIZ ATION 03/21/2023 [facility] DATE CREATED AUTHOR AUTHOR'S ORGANIZ ATION 03/21/2023 [facility] DATE CREATED AUTHOR AUTHOR'S ORGANIZ ATION 03/27/2023 [facility] DATE CREATED AUTHOR AUTHOR'S ORGANIZ ATION 07/14/2023 [facility] Ordered Prescriptions (unrec ognized section and content) Prescription Sig Dispensed Refills Start Date End Da te warfarin (COUMADIN) 5 MG tablet Take 1 tablet on Tuesdays and Saturdays and 1/2 tablet all other days of the week or as directed. Managed by [facility] 90 tablet 3 08/14/2020 Prescription Sig Dispensed Refills Start Date End Da te promethazine (PHENERGAN) 25 MG tablet Take 1 tablet by mouth every 6 hours as needed for Nausea 30 tablet 0 11/23/2020 11/30/2020 oxyCODONE-acetaminophen (PERCOCET) 5-325 MG per tabletIndications:Post-o p pain Take 1 tablet by mouth every 6 hours as needed for Pain for up to 7 days. Intended supply: 3 days. Take lowest dose possible to manage pain 28 tablet 0 11/23/2020 11/30/2020 promethazine (PHENERGAN) 25 MG tablet Take 1 tablet by mouth every 6 hours as needed for Nausea 28 tablet 0 11/23/2020 11/23/2020 oxyCODONE-acetaminophen (PERCOCET) 5-325 MG per tabletIndications:Post-o p pain Take 1 tablet by mouth every 6 hours as needed for Pain for up to 7 days. Intended supply: 3 days. Take lowest dose possible to manage pain 28 tablet 0 11/23/2020 11/23/2020 Prescription Sig Dispensed Refills Start Date End Da te warfarin (COUMADIN) 5 MG tablet Take 1 tablet on Tuesdays and Saturdays and 1/2 tablet all other days of the week or as directed 90 tablet 3 06/07/2021 Prescription Sig Dispensed Refills Start Date End Da te warfarin (COUMADIN) 5 MG tablet Take 1 tablet on Wednesdays and 1/2 tablet all other days of the week or as directed 90 tablet 3 12/22/2021 Prescription Sig Dispensed Refills Start Date End Da te warfarin (COUMADIN) 5 MG tablet Take 1/2 tablet EVERY DAY of the week or as directed 90 tablet 3 01/13/2022 Prescription Sig Dispensed Refills Start Date End Da te warfarin (COUMADIN) 5 MG tablet Take 1/2 tablet EVERY DAY of the week (except skip Fridays) or as directed. Managed by [facility] 90 tablet 3 01/20/2022 Prescription Sig Dispensed Refills Start Date End Da te warfarin (COUMADIN) 2.5 MG tablet Take 1/2 tablet daily or as directed. Managed by [facility]tico[facility] 90 tablet 1 01/27/2022 Prescription Sig Dispensed Refills Start Date End Da te warfarin (COUMADIN) 2.5 MG tablet Take 1 tablet daily or as directed. Managed by [facility]tico[facility]. 90 tablet 1 06/01/2022 Prescription Sig Dispensed Refills Start Date End Da te warfarin (COUMADIN) 2.5 MG tablet TAKE 1/2 TABLET WEDNESDAYS AND SATURDAYS AND TAKE 1 TABLET BY MOUTH EVERY OTHER DAY OR DIRECTED 30 tablet 5 08/24/2022 Reason for Visit (unrecogniz ed section and content) Status Reason Specialty Diagnoses / Procedures Referred By Contact Referred To Contact Closed Cardiology / Echocardiography Diagnoses Cardiomyopathy, unspecified type (HCC) SOB (shortness of breath) Procedures ECHO Complete 2D W Doppler W Color Rafa Nicole MD [address] [place] [address] [facility] [address] [place] [address] Status Reason Specialty Diagnoses / Procedures Referre d By Contact Referred To Contact Closed Radiology Diagnoses Epigastric pain Procedures US GALLBLADDER RUQ Ayde Matthews DO [address] [address] [facility] [address] [place] [address] Status Reason Specialty Diagnoses / Procedures Referre d By Contact Referred To Contact Diagnoses Gallstones GALLSTONES Procedures WI LAP,CHOLECYSTECTOMY XI ROBOTIC LAPAROSCOPIC CHOLECYSTECTOMY, POSSIBLE OPEN Ayde Matthews DO [address] [address] [facility] Specialty Diagnoses / Procedures Referred By Trang t Referred To Contact Cardiology Diagnoses 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, with macular edema, with mild nonproliferative retinopathy, associated with type 2 diabetes mellitus (HCC) Other intraretinal microvascular abnormalities Procedures [id number] - [place] Duplex Scan Extracranial, Nacho Jeff Cerda MD [address] [place] [address] Referral ID Status Reason Start Date Expiration Date Visits Re quested Visits Authorized [id number] Closed 10/25/2021 10/25/2022 1 1 Reason Comments Shortness of Breath for the last four da ys Status Reason Specialty Diagnoses / Procedures Referre d By Contact Referred To Contact Closed Cardiology Diagnoses Shortness of breath Procedures Stress test, lexiscan HC NM SEST. REST STRESS MULT CHG MYOCARDIAL SPECT MULTIPLE STUDIES Rafa Nicole MD [address] [place] [address] [place] [address] Status Reason Specialty Diagnoses / Procedures Referre d By Contact Referred To Contact Closed Cardiology Diagnoses Cardiomyopathy, unspecified type (HCC) Shortness of breath Procedures ECHO Complete 2D W Doppler W Color HC ECHO NO CONTRAST WITH DOP/COLR WI ECHO HEART XTHORACIC,COMPLETE W DOPPLER Rafa Nicole MD [address] [place] [id number] [place] [address] Reason Comments Follow-up Reason Comments Arm Pain left lower arm pain and bruising. Patient states its 10 days old from surgery on his carotid. Believes its from IV starts and may infiltration. Specialty Diagnoses / Procedures Referred By Trang t Referred To Contact Radiology Diagnoses Left arm pain Procedures VL DUP UPPER EXTREMITY VENOUS LEFT Lonnie Hart MD [address] [facility] [facility] [place] [address] Referral ID Status Reason Start Date Expiration Date Visits Re quested Visits Authorized [id number] Closed 01/07/2022 01/07/2023 1 1 Reason Onset Date Comments Medication Refill 01/25/2022 Reason Comments Follow-up Reason Comments Medication Refill Reason Comments Follow Up Phone Call Non-Urgent:Medicati on Concerns Reason Comments Post Dc Program Call - Needs Attn Reason Comments Follow Up Phone Call RC all clear Reason Onset Date Comments Transition Of Care 04/14/2023 TCM Pharmacy- Hospital discharge 04/13/23 Heart Failure 04/14/2023 Reason Comments Event 14 days Reason Comments Future Appointment DCC Reason Comments Patient Education EPS-DCC Reason Comments Follow Up Care Teams (unrecognized sec tion and content) Chemist Organic Relationship Specialty Start Date End Date Jeff Cerda MD PCP - General 09/01/17 Chemist Organic Relationship Specialty Start Date End Date Jeff Cerda MD PCP - General 09/01/17 Chemist Organic Relationship Specialty Start Date End Date Jeff Cerda MD PCP - General 09/01/17 Chemist Organic Relationship Specialty Start Date End Date Jeff Cerda MD PCP - General Family Medicine 09/07/17 Shahab Buckley MD [address] [phone] Vascular Surgery 11/26/21 Chemist Organic Relationship Specialty Start Date End Date Jeff Cerda MD [address] [phone] (Fax) PCP - General Family Medicine 09/07/17 Shahab Buckley MD [address] [phone] Vascular Surgery 11/26/21 Chemist Organic Relationship Specialty Start Date End Date Jeff Cerda MD [address] [place] [phone] (Fax) PCP - General Family Medicine 09/07/17 Shahab Buckley MD [address] [place] [address] Vascular Surgery 11/26/21 Chemist Organic Relationship Specialty Start Date End Date Jeff Cerda MD PCP - General 09/01/17 Chemist Organic Relationship Specialty Start Date End Date Jeff Cerda MD [address] [place] [address] (Fax) PCP - General Family [facility] 09/07/17 Shahab Buckley MD [address] [place] [address] Vascular Surgery 11/26/21 Chemist Organic Relationship Specialty Start Date End Date Jeff Cerda MD PCP - General 09/01/17 Chemist Organic Relationship Specialty Start Date End Date Jeff Cerda MD PCP - General 09/01/17 Chemist Organic Relationship Specialty Start Date End Date Jeff Cerda MD PCP - General 09/01/17 Chemist Organic Relationship Specialty Start Date End Date Jeff Cerda MD PCP - General 09/01/17 Chemist Organic Relationship Specialty Start Date End Date Jeff Cerda MD [address] [place] [address] (Fax) PCP - General Family Medicine 09/07/17 Shahab Buckley MD [address] [place] [address] Vascular Surgery 11/26/21 Chemist Organic Relationship Specialty Start Date End Date Jeff Cerda MD PCP - General 09/01/17 Chemist Organic Relationship Specialty Start Date End Date Jeff Cerda MD [address] [place] [phone] (Fax) PCP - General Family Medicine 09/07/17 Shahab Buckley MD [address] [phone] Vascular Surgery 11/26/21 Chemist Organic Relationship Specialty Start Date End Date Jeff Cerda MD PCP - General 09/01/17 Chemist Organic Relationship Specialty Start Date End Date Jeff Cerda MD PCP - General 09/01/17 Chemist Organic Relationship Specialty Start Date End Date Jeff Cerda MD PCP - General 09/01/17 Chemist Organic Relationship Specialty Start Date End Date Jeff Cerda MD PCP - General 09/01/17 Chemist Organic Relationship Specialty Start Date End Date Jeff Cerda MD PCP - General 09/01/17 Chemist Organic Relationship Specialty Start Date End Date Jeff Cerda MD PCP - General 09/01/17 Chemist Organic Relationship Specialty Start Date End Date Jeff Cerda MD [address] [place] [address] (Fax) PCP - General Family Medicine 09/07/17 Shahab Buckley MD [address] [place] [address] Vascular Surgery 11/26/21 Chemist Organic Relationship Specialty Start Date End Date Jeff Cerda MD [address] [place] [address] PCP - General Family Medicine 09/07/17 Shahab Buckley MD [address] [place] [address] Vascular Surgery 11/26/21 Chemist Organic Relationship Specialty Start Date End Date Jeff Cerda MD PCP - General 09/01/17 Chemist Organic Relationship Specialty Start Date End Date Franck Terrell II, MD [address] [facility] [address] [place] [address] PCP - General Internal Medicine 10/09/15 Chemist Organic Relationship Specialty Start Date End Date Franck Terrell II, MD [address] [facility] [address] [place] [address] PCP - General Internal Medicine 10/09/15 Chemist Organic Relationship Specialty Start Date End Date Franck Terrell II, MD [address] [facility] [address] [place] [address] PCP - General Internal Medicine 10/09/15 Chemist Organic Relationship Specialty Start Date End Date Franck Terrell II, MD [address] [facility] [address] [place] [address] PCP - General Internal Medicine 10/09/15 Mikael Henry [facility] [address] [place] [address] Transitional Care Pharmacist Pharmacy 04/14/23 05/12/23 Chemist Organic Relationship Specialty Start Date End Date Franck Terrell II, MD [address] [facility] [address] [place] [address] PCP - General Internal Medicine 10/09/15 Mikael Henry [facility] [address] [place] [address] Transitional Care Pharmacist Pharmacy 04/14/23 05/12/23 Chemist Organic Relationship Specialty Start Date End Date Franck Terrell II, MD [address] [facility] [address] [place] [address] PCP - General Internal Medicine 10/09/15 Mikael Henry [facility] [address] [place] [address] Transitional Care Pharmacist Pharmacy 04/14/23 05/12/23 Chemist Organic Relationship Specialty Start Date End Date Franck Terrell II, MD [address] [facility] [address] [place] [address] PCP - General Internal Medicine 10/09/15 Mikael Henry [facility] [address] [place] [address] Transitional Care Pharmacist Pharmacy 04/14/23 05/12/23 Chemist Organic Relationship Specialty Start Date End Date Jeff Cerda MD [address] [place] [address] PCP - General Family Medicine 05/12/23 Mikael Henry [facility] [address] [place] [address] Transitional Care Pharmacist Pharmacy 04/14/23 05/12/23 Chemist Organic Relationship Specialty Start Date End Date Jeff Cerda MD [address] [place] [address] (Fax) PCP - General Family Medicine 05/12/23 [facility] [address] [place] [address] Transitional Care Pharmacist Pharmacy 04/14/23 05/12/23 Chemist Organic Relationship Specialty Start Date End Date Jeff Cerda MD [address] [facility] [address] [place] [phone] (Fax) PCP - General Family Medicine 05/12/23 Chemist Organic Relationship Specialty Start Date End Date Jeff Cerda MD [address] [place] [address] (Fax) PCP - General Family Medicine 05/12/23 Chemist Organic Relationship Specialty Start Date End Date Jeff Cerda MD [address] [facility] [place] [address] (Fax) PCP - General Family Medicine 05/12/23 Chemist Organic Relationship Specialty Start Date End Date Jeff Cerda MD [address] [facility] [place] [address] (Fax) PCP - General Family Medicine 05/12/23 Chemist Organic Relationship Specialty Start Date End Date Jeff Cerda MD [address] [place] [address] (Fax) PCP - General Family Medicine 05/12/23 Chemist Organic Relationship Specialty Start Date End Date Jeff Cerda MD [address] [place] [address] (Fax) PCP - General Family Medicine 05/12/23 Chemist Organic Relationship Specialty Start Date End Date Jeff Cerda MD [address] [facility] [place] [address] (Fax) PCP - General Family Medicine 05/12/23 Chemist Organic Relationship Specialty Start Date End Date Jeff Cerda MD [address] [place] [phone] (Fax) PCP - General Family Medicine 05/12/23 Chemist Organic Relationship Specialty Start Date End Date Jeff Cerda MD [address] [facility] [place] [address] (Fax) PCP - General Family Medicine 05/12/23 Chemist Organic Relationship Specialty Start Date End Date Jeff Cerda MD [address] [place] [address] (Fax) PCP - General Family Medicine 05/12/23 Scheduled Active and Recently Administ ered Medications (unrecognized section and content) Medication Order 12/27/2021 12/28/2021 12/29/2021 aspirin EC tablet 81 mg 81 mg, Oral, Daily, First dose on Mon12/29/21 at 0900, DO NOT CRUSH OR CHEW. 0832 (Given - Provid er: Yanelis Blackmon RN) ceFAZolin (ANCEF) IVPB 2 g (premix) (COMPLETED) 2,000 mg, Intravenous, at 100 mL/hr, Every 8 hours, First dose on Mon12/28/21 at 1900, For 2 doses, Initiate 8 hours after start of Pre-procedure dose., Indication (POST PROCEDURE): Cardiothoracic 1850 (New Bag - Provider: Belia Ponce RN) 0343 (New Bag - Provider: Evi Mckeon RN) clopidogreL (PLAVIX) tablet 75 mg 75 mg, Oral, Daily, First dose on Mon12/29/21 at 0900 0832 (Given - Provid er: Yanelis Blackmon RN) furosemide (LASIX) tablet 20 mg 20 mg, Oral, 2 times daily, First dose on Mon12/28/21 at 2100 2032 (Given - Provider: Elsie West RN) 0833 (Given - Provider: Yanelis Blackmon RN) gabapentin (NEURONTIN) capsule 300 mg 300 mg, Oral, Every 8 hours scheduled, First dose on Mon12/28/21 at 2200 2220 (Given - Provider: Evi Mckeon, CARRIE) 0507 (Given - Provider: Evi Mckeon RN) heparin (porcine) injection 5,000 Units (COMPLETED) 5,000 Units, Subcutaneous, Once, On Mon12/28/21 at 1200, For 1 dose, Pre-Procedure, Notify physician if patient refuses. 1145 (OCT Hold - Provider: Transfer Provider, Automatic - Reason: Patient not available)1150 (Given - Provider: Jessica De León RN)1256 (OCT Unhold - Provider: Transfer Provider, Automatic) insulin glargine (LANTUS) injection 75 Units 75 Units, Subcutaneous, Nightly, First dose on Mon12/28/21 at 2100, Do not mix with other insulins in a syringe. Do NOT hold basal insulin without notifying physician 2032 (Given - Provider: Elsie West RN - Comment: rt thigh) isosorbide mononitrate (IMDUR) 24 hr tablet 30 mg 30 mg, Oral, Daily, First dose on Mon12/29/21 at 0900, Include a nitrate free period DO NOT CRUSH OR CHEW. 0833 (Given - Provid er: Yanelis Blackmon RN) metFORMIN (GLUCOPHAGE) tablet 1,000 mg 1,000 mg, Oral, 2 times daily with meals, First dose on Mon12/28/21 at 1900, Note: Guidelines recommend that metformin be held for 48 hours after use of iodinated contrast media (IVP Dye) in patients with an eGFR less than 30 ml/min/1.73m2, with a history of hepatic disease, alcoholism or heart failure, or in patients who will receive intra-arterial iodinated contrast. 1845 (Given - Provider: Belia Ponce RN) 831 (Given - Provider: Yanelis Blackmon, CARRIE) metoprolol succinate (TOPROL-XL) 24 hr tablet 50 mg 50 mg, Oral, Daily, First dose on Mon12/28/21 at 1900, DO NOT CRUSH OR CHEW. 1845 (Given - Provider: Belia Ponce RN) 831 (Given - Provider: Yanelis Blackmon RN) sacubitriL-valsartan (ENTRESTO) 49-51 mg per tablet 1 tablet 1 tablet, Oral, 2 times daily, First dose on Mon12/28/21 at 2300 2357 (Given - Provider: Evi Mckeon RN) 1100 (Due) simvastatin (ZOCOR) tablet 40 mg 40 mg, Oral, Nightly, First dose on Mon12/28/21 at 2100 2032 (Given - Provider: Elsie West RN) spironolactone (ALDACTONE) tablet 25 mg 25 mg, Oral, Daily, First dose on Mon12/29/21 at 0900, CATEGORY C HAZARDOUS DRUG use safe handling precautions. Use reference link to view PPE guidelines. Minimize crushing/splitting only to situations where clinically necessary. 832 (Given - Provid er: Yanelis Blackmon RN) warfarin (COUMADIN) tablet 5 mg (COMPLETED) 5 mg, Oral, Once, On Mon12/28/21 at 2000, For 1 dose, Check INR prior to administration. Notify physician if patient refuses med. CATEGORY D HAZARDOUS DRUG use safe handling precautions. Use reference link to view PPE guidelines. Minimize crushing/splitting only to situations where clinically necessary. P/U LISTED HAZARDOUS DRUG. Dispose of waste in Black Container. 1951 (Given - Provider: Evi Mckeon RN) Continuous Medication Order 12/27/2021 12/28/2021 12/29/2021 lactated Ringers infusion (CANCELED) 75 mL/hr, Intravenous, Continuous, Starting on Mon12/28/21 at 1200, Pre-Procedure 1126 (New Bag - Provider: Jessica De León RN)1145 (OCT Hold - Provider: Transfer Provider, Automatic - Reason: Patient not available)1254 (Paused - Provider: Cheyenne Brooks CRNA - Comment: Switch to gravity)1255 (Restarted - Provider: Cheyenne Brooks CRNA)1256 (OCT Unhold - Provider: Transfer Provider, Automatic)1458 (Anesthesia Volume Adjustment - Provider: Cheyenne Brooks CRNA)1516 (OCT Hold - Provider: Transfer Provider, Automatic - Reason: Patient not available)1728 (OCT Unhold - Provider: Transfer Provider, Automatic) lactated Ringers infusion 75 mL/hr, Intravenous, Continuous, Starting on Mon12/28/21 at 1815, For 12 hours, Discontinue IV in 12 hours 1739 (New Bag - Provider: Belia Ponce RN) PRN Medication Order 12/27/2021 12/28/2021 12/29/2021 acetaminophen (TYLENOL) tablet 650 mg 650 mg, Oral, Every 4 hours PRN, mild pain, fever 100.4 F or greater, headaches, Starting on Mon12/28/21 at 1729 iopamidoL (ISOVUE-300) 61 % injection (CANCELED) As needed, Starting on Mon12/28/21 at 1437, Intra-Procedure 1437 (Given - Provider: Shahab Buckley MD) naloxone (NARCAN) injection 0.1 mg(Linked Group 1) 0.1 mg, Intravenous, As needed, opioid reversal, For respiratory rate less than or equal to 8 per minute., Starting on Mon12/28/21 at 1729, Mix nalOXone (NARCAN) 0.4 mg (1ml) with 9 mL of Normal Saline to total 10 mL. Administer 0.1 mg (2.5ml) IV Push every 2 minutes until respiratory rate is 10 or greater. naloxone (NARCAN) injection 0.4 mg(Linked Group 1) 0.4 mg, Intravenous, As needed, opioid reversal, patient is pulseless, breathless, and unresponsive, Starting on Mon12/28/21 at 1729, Call a code first, then administer naloxone dose undiluted IV Push over 30 seconds. oxyCODONE-acetaminophen (PERCOCET) 5-325 mg per tablet 1-2 tablet 1-2 tablet, Oral, Every 4 hours PRN, moderate to severe pain, Starting on Mon12/28/21 at 1729, [] Initiate with 1 tablet oral every 4 hours prn moderate to severe pain. [] For unrelieved pain, may repeat one tablet oral dose within 60 minutes of initial dose. [] If pain is RELIEVED after repeat dose, change to two tablets of 5/325 mg oral every 4 hours prn moderate to severe pain. [] If pain is UNrelieved after repeat dose, or patient requires dose reduction, call physician. perflutren lipid microspheres (DEFINITY) 0.143 mg/mL solution 0-10 mL of mixture 0-10 mL of mixture, Intravenous, Once in imaging, contrast, IF suboptimal echo, Starting on Mon12/28/21 at 1747, For 48 hours, Prepare syringe by withdrawing 1.3 mL of perflutren (DEFINITY) from the 2ml vial. Further dilute the 1.3 mL of perflutren with Sodium Chloride (NS) 0.9% to total volume of 10 ml. Chart total ML OF MIXTURE given to patient. 1055 (Given - Provid er: Lisa Rivera RN) Linked Groups Order Group 1: naloxone (NARCAN) injection 0.1 mgJump to med 0.1 mg, Intravenous, As needed, opioid reversal, For respiratory rate less than or equal to 8 per minute., Starting on Mon12/28/21 at 1729
Mix nalOXone (NARCAN) 0.4 mg (1ml) with 9 mL of Normal Saline to total 10 mL. Administer 0.1 mg (2.5ml) IV Push every 2 minutes until respiratory rate is 10 or greater.
And Notify physician (CANCELED) STAT, Until discontinued, Starting on Mon12/28/21 at 1730, Until Specified
Respiratory rate less than: 8
For respiratory rate less than or equal to 8, notify physician and/or appropriate staff for additional orders. And naloxone (NARCAN) injection 0.4 mgJump to med 0.4 mg, Intravenous, As needed, opioid reversal, patient is pulseless, breathless, and unresponsive, Starting on Mon12/28/21 at 1729
Call a code first, then administer naloxone dose undiluted IV Push over 30 seconds.
Source Comments (unrecognize d section and content) In the event this informatio n is protected by the Federal Confidentiality of Alcohol and Drug Abuse Patient Records regulations: The Federal rules restrict any use of the information to criminally investigate or prosecute any alcohol or drug abuse patient.[facility] HospitalIn the event this information is protected by the Federal Confidentiality of Alcohol and Drug Abuse Patient Records regulations: The Federal rules restrict any use of the information to criminally investigate or prosecute any alcohol or drug abuse patient.[facility] HospitalIn the event this information is protected by the Federal Confidentiality of Alcohol and Drug Abuse Patient Records regulations: The Federal rules restrict any use of the information to criminally investigate or prosecute any alcohol or drug abuse patient.[facility] HospitalIn the event this information is protected by the Federal Confidentiality of Alcohol and Drug Abuse Patient Records regulations: The Federal rules restrict any use of the information to criminally investigate or prosecute any alcohol or drug abuse patient.[facility] HospitalIn the event this information is protected by the Federal Confidentiality of Alcohol and Drug Abuse Patient Records regulations: The Federal rules restrict any use of the information to criminally investigate or prosecute any alcohol or drug abuse patient.[facility] HospitalIn the event this information is protected by the Federal Confidentiality of Alcohol and Drug Abuse Patient Records regulations: The Federal rules restrict any use of the information to criminally investigate or prosecute any alcohol or drug abuse patient.[facility] HospitalIn the event this information is protected by the Federal Confidentiality of Alcohol and Drug Abuse Patient Records regulations: The Federal rules restrict any use of the information to criminally investigate or prosecute any alcohol or drug abuse patient.[facility] HospitalIn the event this information is protected by the Federal Confidentiality of Alcohol and Drug Abuse Patient Records regulations: The Federal rules restrict any use of the information to criminally investigate or prosecute any alcohol or drug abuse patient.[facility] HospitalIn the event this information is protected by the Federal Confidentiality of Alcohol and Drug Abuse Patient Records regulations: The Federal rules restrict any use of the information to criminally investigate or prosecute any alcohol or drug abuse patient.[facility] HospitalIn the event this information is protected by the Federal Confidentiality of Alcohol and Drug Abuse Patient Records regulations: The Federal rules restrict any use of the information to criminally investigate or prosecute any alcohol or drug abuse patient.[facility] HospitalIn the event this information is protected by the Federal Confidentiality of Alcohol and Drug Abuse Patient Records regulations: The Federal rules restrict any use of the information to criminally investigate or prosecute any alcohol or drug abuse patient.[facility] HospitalIn the event this information is protected by the Federal Confidentiality of Alcohol and Drug Abuse Patient Records regulations: The Federal rules restrict any use of the information to criminally investigate or prosecute any alcohol or drug abuse patient.[facility] HospitalIn the event this information is protected by the Federal Confidentiality of Alcohol and Drug Abuse Patient Records regulations: The Federal rules restrict any use of the information to criminally investigate or prosecute any alcohol or drug abuse patient.[facility] HospitalIn the event this information is protected by the Federal Confidentiality of Alcohol and Drug Abuse Patient Records regulations: The Federal rules restrict any use of the information to criminally investigate or prosecute any alcohol or drug abuse patient.[facility] HospitalIn the event this information is protected by the Federal Confidentiality of Alcohol and Drug Abuse Patient Records regulations: The Federal rules restrict any use of the information to criminally investigate or prosecute any alcohol or drug abuse patient.[facility] HospitalIn the event this information is protected by the Federal Confidentiality of Alcohol and Drug Abuse Patient Records regulations: The Federal rules restrict any use of the information to criminally investigate or prosecute any alcohol or drug abuse patient.[facility] HospitalIn the event this information is protected by the Federal Confidentiality of Alcohol and Drug Abuse Patient Records regulations: The Federal rules restrict any use of the information to criminally investigate or prosecute any alcohol or drug abuse patient.[facility] HospitalIn the event this information is protected by the Federal Confidentiality of Alcohol and Drug Abuse Patient Records regulations: The Federal rules restrict any use of the information to criminally investigate or prosecute any alcohol or drug abuse patient.[facility] HospitalIn the event this information is protected by the Federal Confidentiality of Alcohol and Drug Abuse Patient Records regulations: The Federal rules restrict any use of the information to criminally investigate or prosecute any alcohol or drug abuse patient.[facility] HospitalIn the event this information is protected by the Federal Confidentiality of Alcohol and Drug Abuse Patient Records regulations: The Federal rules restrict any use of the information to criminally investigate or prosecute any alcohol or drug abuse patient.[facility] HospitalIn the event this information is protected by the Federal Confidentiality of Alcohol and Drug Abuse Patient Records regulations: The Federal rules restrict any use of the information to criminally investigate or prosecute any alcohol or drug abuse patient.[facility] HospitalIn the event this information is protected by the Federal Confidentiality of Alcohol and Drug Abuse Patient Records regulations: The Federal rules restrict any use of the information to criminally investigate or prosecute any alcohol or drug abuse patient.[facility] HospitalIn the event this information is protected by the Federal Confidentiality of Alcohol and Drug Abuse Patient Records regulations: The Federal rules restrict any use of the information to criminally investigate or prosecute any alcohol or drug abuse patient.[facility] HospitalIn the event this information is protected by the Federal Confidentiality of Alcohol and Drug Abuse Patient Records regulations: The Federal rules restrict any use of the information to criminally investigate or prosecute any alcohol or drug abuse patient.[facility] FOR RECORDS PERTAINING TO PATIENTS WHO ARE OR HAVE BEEN ENROLLED IN A CHEMICAL DEPENDENCY/SUBSTANCEABUSE PROGRAM, SOME INFORMATION MAY BE OMITTED. This clinical summary was aggregated from multiple sources. Caution should be exercised in using it in the provision of clinical care. This summary normalizes information from multiple sources, and as a consequence, information in this document may materially change the coding, format and clinical context of patient data. In addition, data may be omitted in some cases. CLINICAL DECISIONS SHOULD BE BASED ON THE PRIMARY CLINICAL RECORDS. [facility] [employer] [facility]. provides no warranty or guarantee of the accuracy or completeness of information in this document.
--- NOTE | 2023-08-04 11:17 | CA_ITS ---
[facility] Test Date: 2023-08-04 Pat Name: GREGG FOSTER Department: Room: - Gender: Male Skein Bander: Munira Aparicio : 1955 Requested By: LAISHA MOMIN Order Number: [id number] Reading MD: HUBERT MCBRIDE Interpretive Statements Monophasic doppler waveforms PVR waveforms with delayed upstroke, delayed amplitude and loss of dicrotic notch Right: - significant pressure gradient between the calf and DP cuff - abnormal FLORENCIO and TBI Left: - no significant pressure gradient between cuffs - abnormal FLORENCIO Impression: - elevated indices (right thigh, B/L calf, left DP and B/L PT) consistent with calcified, noncompressible arterial [place]. This may underestimate the degree of arterial disease present. - results unreliable due to elevated indices - TBI (incorrectly labeled on diagram), which are not influenced by arterial calcification, are decreased and consistent with moderate hemodynamic impairment of the B/L lower extremities at rest. - clinical correlation advised Electronically Signed On 08-08-2023 7:14:17 EST by HUBERT MCBRIDE
[2023-08-04 11:29] LABS: BUN Creatinine Ratio 26.4; Calcium 9.5 mg/dL (8.5-10.1); Carbon Dioxide 28.1 mmol/L (21.0-32.0); Chloride 99 mmol/L (98-107); Estimated GFR (African America 32 (>=60); Estimated GFR (Non-African Ame 26 (>=60); Glucose 152 mg/dL (74-106); Potassium 4.1 mmol/L (3.5-5.1); Sodium 137 mmol/L (136-145)
[2023-08-04 11:30] LABS: C Reactive Protein 1.21 mg/dL (<=0.50)
== END 2023-08-04 09:15 | disposition home or self-care (01) ==
LOC: CARD 09:14
PROVIDERS: Family Provider Family Medicine; PCP Family Medicine; Visit Provider Podiatrist Foot & Ankle Surgery
DX: R09.89 Other specified symptoms and signs involving the circulatory and respiratory systems (principal); I73.9 Peripheral vascular disease, unspecified
CPT/HCPCS: 36415; 80048; 85025; 85652; 86140; 93923

== ENCOUNTER 2023-08-18 09:56 | Outpatient (OUT) | payer OTHER, SELFPAY ==
--- OUTSIDE RECORDS SUMMARY | 2023-08-18 10:07 | XMS_ITS | CCD ---
Author Name Unknown Address [address] [place] [address] [facility] Care Team Providers Care Mold Cooler Name Role Phone Jeff Cerda Unavailable AYDE [...] Care Provider Jeff Cerda Primary Care Provider [phone] Jeff Cerda Primary Care Provider Unavaila ble Jeff Cerad Primary Care Provider [phone] Jeff Cerda MD Primary Care Provider AYDE [...] Provider Jeff Cerda MD Primary Care Provider [phone] Shahab Buckley MD Unavailable [phone] Jeff Cerda MD Primary Care Provider Jeff Cedra MD Primary Care Provider [phone] Jeff Cerda MD Primary Care Provider Shahab Buckley MD Unavailable [phone] JEFF CERDA Primary Care Unavailable SHAHAB BUCKLEY Attending Unavailabl SHAHAB Piper Attending Unavailabl e PRASHANT, [facility] Primary Care Unavailable SHAHAB BUCKLEY Attending [facility]availabl e [facility] Admitting Unavailable [facility], [facility] Primary Care Unavailable [facility], [place] J Referring Unavailable [facility], [facility] Primary Care Unavailable SHAHAB BUCKLEY Attending Unavailabl SHAHAB Piper Referring Unavailabl e PRASHANT, [facility] Primary Care Unavailable SHAAHB BUCKLEY Attending Unavailabl e [facility] Unavailable TRACY BRIAN Consulting Unavailable SHAHAB BUCKLEY Admitting UnavailSHAHAB Cardenas Attending Unavailabl e PRASHANT, EDAURORA J Primary Care Unavailable SHAHAB BUCKLEY Referring Unavailabl e [facility] Primary Care Unavailable SHAHAB BUCKLEY Attending Unavailabl e [facility] Primary Care Unavailable MARY JANE RODRIGUEZ Attending Unavailable MARY JANE RODRIGUEZ Referring Unavailable Jeff Cerda MD Primary Care Provider [phone] GURWINDER TRUONG Attending Unavailable GURWINDER TRUONG Admitting Unavailable LIONEL NICHOLS Consulting Unavailable HEMELULI ., DR AMBRIZ Primary Care Unavailable LUIS BLOOM Consulting Unavailable Jeff Cerda MD Primary Care Provider Osiirs Duran Consulting Unavailable NON STAFF Primary Care [...] HEMEYER, EDWARD J Primary Care Unavailable Xander AYN MD, Franck Huang Primary Care Provider Osiris Duran Consulting Unavailable NON STAFF Primary Care Unavailable Terrie Firshan Admitting Unavailable Meena Falcon Attending Unavailable Rebecca Liriano Consulting Unavailable Nakul Salcedo Consulting Unavailable Shady Aviles Consulting Unavail able Jason Manuel Consulting Unavailable Mike Corea Consulting Unavailab Delaney Blankenship Consulting Unavailable Ana Nielson Consulting Unavailable Ivon Dumont Consulting Unavailab Shelton Foster Consulting Unavailable Soledad Ho Consulting Unavailable Noa, Joyce Mcpherson Consulting Unavailable Sanjeev Ontiveros Consulting Unavailable Leuschen RPh, Mikael Unavailable Prashant THUR[place], [facility] Primary Care Provider WAZNI, OUSSAMA Referring Un[facility]avail[facility] WAZNI, OUSSAMA Referring Unavailable [facility], [facility] Care Unavailab le WAZNI, OUSSAMA Referring Unavailable [facility] Care Unavailab le WAZNI, OUSSAMA Referring Unavailable [facility] Care Unavailab ANAMARIA Dorman Attending Unavailable WAZNI, OUSSAMA Referring Unavailable [facility] Care Unavailab YANNICK De Attending Unavailable [facility] Care Unavailab YANNICK De Referring Unavailable [facility] Care Unavailab YANNICK De Referring Unavailable TERRELL II, FRANCK B Primary Care Unavailable VENUS TALBERT Referring Unavailable TERRELL II, FRANCK B Primary Care Unavailable WAZNI, OUSSAMA Referring Unavailable XAVIER-NLIAM, CHETE Admitting Unavailable TERRELL II, FRANCK B Primary Care Unavailable JOLANTA, SANJEEB Attending Unavailabl e XAVIER-NLIAM, CHETE Attending Unavailable XAVIER-NLIAM, CHETE Admitting Unavailable TERRELL II, FRANCK B Primary Care Unavailable WAZNI, OUSSAMA Referring Unavailable JOLANTA, SANJEEB Attending Unavailabl e HEMEYER, [facility] Care Unavailab le TERRELL II, FRANCK B Primary Care Unavailable XAVIER-NLIAM, CHETE Referring Unavailable TERRELL II, FRANCK B Primary Care Unavailable NABILICHVENUS M Referring Unavailable TERRELL II, FRANCK B Primary Care Unavailable VENUS TALBERT M Referring Unavailable TERRELL II, FRANCK B [...] Active take 2 tablets by mouth once orssi ly cholecalciferol, vitamin D3, 1,000 unit tablet [...] BY MOUTH EVERY DAY 30 tablet 11 03/17/2022 Active Start: 02-11-2019 End: 12-29-2021 take [...] twice daily. Take 4 tablets by mo [facility] twice daily. warfarin sodium 2.5 mg oral [...] tablet daily or as directed. Managed by [facility]. 90 tablet 1 06/01/2022 Active Start: 02-15-2022 End: 06-01-2022 warfarin (COUMADIN) 2.5 MG t ablet Take 1/2 tablet (1.25 mg warfarin) on Tuesdays, , Saturdays, and Sundays or as directed. Managed by [facility] 90 tablet 1 02/15/2022 06/01/2022 Discontinued (DOSE ADJUSTMENT) Start: 02-15-2022 End: 02-22-2022 warfarin (COUMADIN) 5 MG tab let Take 1/2 tablet (2.5 mg warfarin) on Mondays, Wednesdays, and Fridays or as directed. Managed by [facility] 30 tablet 3 02/15/2022 02/22/2022 Discontinued (DOSE ADJUSTMENT) Start: 01-27-2022 warfarin (COUM JONH) 2.5 MG tablet Take 1/2 tablet daily or as directed. Managed by [facility] 90 tablet 1 01/27/2022 Active Start: 01-13-2022 End: 01-27-2022 warfarin (COUMADIN) 5 MG tab let Take 1/2 tablet EVERY DAY of the week (except skip Fridays) or as directed. Managed by [facility] 90 tablet 3 01/20/2022 01/27/2022 Discontinued (DOSE [...] 03/01/2023 Suspended take 3 tablets by mo [facility] once daily in the morning allopurinol (ZYLOPRIM) [...] above: Take 1 tablet by josé luis every 12 hours. diazePAM 5 mg oral [...] on above: Take 1 capsule by mo [facility] once daily. 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; 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] Onset: 01-02-2023 Episodic Other aftercare (1 source) 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 insulin; 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 INSULIN] Onset: 01-02-2023 Episodic Other aftercare (1 source) 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 oral hypoglycemic drugs; 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: [HOUSEKEEPING DIRECTOR USE ORAL HYPOGLYCEMIC DX] Onset: 01-02-2023 Episodic [...] level - finding; 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: 05-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 08-14-2023 Chronic Other nutritional; endocrine; and metabolic disorders [...] 10-31-2017 Unclassified (1 source) New Patient / [id number]() Onset: 09-25-2017 Unclassified (1 source) Dx: Frequent [...] sources) Long-term current use of anticoagulant; 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: [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] Onset: 08-01-2018 08-01-2018 Episodic Other aftercare (3 sources) 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; 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: [[facility] CURRNT USE ANTICOAGULANTS] Onset: 08-01-2018 Episodic Other aftercare (20 sources) Taking high risk medication; 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: [Other 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) drug therapy] Onset: 08-23-2020 03-20-2023 Episodic Other aftercare (20 sources) Long-term current use of insulin; 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: [[facility] (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 insulin] Onset: 08-21-2017 03-20-2023 Episodic Other aftercare (20 sources) Polypharmacy ; 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: [Other group home (current) drug therapy] Onset: 08-23-2020 03-20-2023 Episodic [...] Reference Range Facility CNOVon 07-12-2023 CNOV Normal [facility] metabolic 2000 panelon 07-12-2023 Albumin [Mass/Vol] 3.9 g/dL Normal 3.9-4.9 [facility] Comment on above: Order Comment: Speci men Type: BLOOD SPECIMENOrdering Facility: [facility] Address: [address] [place] [address] Performed By: #### 2 4323-8, 76070-4, 15360-5 ####[facility] LABCLIA [id number] [place] [address] [place] ALP [Catalytic activity/Vol] 182 U/L High 38-113 [facility] Comment on above: Order Comment: Speci men Type: BLOOD SPECIMENOrdering Facility: [facility] Address: [address] [place] [address] Performed By: #### 2 4323-8, , 14131-9 ####[facility] LABCLIA [id number] [place] [address] [place] ALT [Catalytic activity/Vol] 47 U/L Normal 10-54 [facility] Comment on above: Order Comment: Speci men Type: BLOOD SPECIMENOrdering Facility: [facility] Address: [address] [place] [address] Performed By: #### 2 4323-8, , 80942-8 ####[facility] LABCLIA [id number] [place] [address] [place] Anion gap [Moles/Vol] 12 mmol/L Normal 9-18 [facility] Comment on above: Order Comment: Speci men Type: BLOOD SPECIMENOrdering Facility: [facility] Address: [address] [place] [address] Performed By: #### 2 4323-8, 94910-0, 76889-6 ####[facility] LABCLIA [id number] [place] [id number] [place] AST [Catalytic activity/Vol] 32 U/L Normal 14-40 [facility] Comment on above: Order Comment: Speci men Type: BLOOD SPECIMENOrdering Facility: [facility] Address: [address] [place] [address] Performed By: #### 2 4323-8, 42339-4, 44029-5 ####[facility] LABCLIA [id number] [place] [address] [place] Bilirubin [Mass/Vol] 1.2 mg/dL Normal 0.2-1.3 [facility] Comment on above: Order Comment: Speci men Type: BLOOD SPECIMENOrdering Facility: [facility] Address: [address] [place] [address] Performed By: #### 2 4323-8, 40342-3, 15689-0 ####[facility] LABCLIA [id number] [place] [address] [place] Calcium [Mass/Vol] 9.8 mg/dL Normal 8.5-10.2 [facility] Comment on above: Order Comment: Speci men Type: BLOOD SPECIMENOrdering Facility: [facility] Address: [address] [place] [address] Performed By: #### 2 4323-8, 62477-8, 70614-3 ####[facility] LABCLIA [id number] [place] [address] [place] Chloride [Moles/Vol] 98 mmol/L Normal 97-105 [facility] Comment on above: Order Comment: Speci men Type: BLOOD SPECIMENOrdering Facility: [facility] Address: [address] [place] [address] Performed By: #### 2 4323-8, 88968-4, 98977-0 ####[facility] LABCLIA [id number] [place] [address] [place] CO2 [Moles/Vol] 29 mmol/L Normal 22-30 [facility] Comment on above: Order Comment: Speci men Type: BLOOD SPECIMENOrdering Facility: [facility] Address: [address] [place] [address] Performed By: #### 2 4323-8, 41118-9, 10771-1 ####[facility] LABCLIA [id number] [place] [id number] [place] Creatinine [Mass/Vol] 1.95 mg/dL High 0.73-1.22 [facility] Comment on above: Order Comment: Speci men Type: BLOOD SPECIMENOrdering Facility: [facility] Address: [address] [place] [address] Performed By: #### 2 4323-8, , 44505-3 ####[facility] LABIA [id number] [place] [address] [place] Creatinine and Glomerular filtration rate.predicted panel (S/P/Bld) 37 mL/min/1.73m??? Low >=60 [facility] Comment on above: Order Comment: Joseline clemons Type: BLOOD SPECIMENOrdering Facility: [facility] Address: [address] [place] [address] Result Comment: Syl mated Glomerular Filtration Rate [...] GFR. Performed By: #### 2 4323-8, , 15791-4 ####[facility] LABIA [id number] [place] [id number] [place] Glucose [Mass/Vol] 177 mg/dL High 74-99 [facility] Comment on above: Order Comment: Speci men Type: BLOOD SPECIMENOrdering Facility: [facility] Address: [address] [place] [address] Result Comment: The [place] [employer] (ADA) provides guidance for cutoff [...] Standards of Medical Care in Diabetes 2016, [place] [employer]. Diabetes Care. 2016.39(Suppl 1). Performed By: #### 2 4323-8, , 62768-6 ####[facility] LABCLIA [id number] [place] [address] [place] Potassium [Moles/Vol] 3.9 mmol/L Normal 3.7-5.1 [facility] Comment on above: Order Comment: Speci men Type: BLOOD SPECIMENOrdering Facility: [facility] Address: [address] [place] [address] Performed By: #### 2 4323-8, , 07704-3 ####[facility] LABCLIA [id number] [place] [address] [place] Protein [Mass/Vol] 7.5 g/dL Normal 6.3-8.0 [facility] Comment on above: Order Comment: Speci men Type: BLOOD SPECIMENOrdering Facility: [facility] Address: [address] [place] [address] Performed By: #### 2 4323-8, , 93408-3 ####[facility] LABCLIA [id number] [place] [id number] [place] Sodium [Moles/Vol] 139 mmol/L Normal 136-144 [facility] Comment on above: Order Comment: Speci men Type: BLOOD SPECIMENOrdering Facility: [facility] Address: [address] [place] [address] Performed By: #### 2 4323-8, , 28543-8 ####[facility] LABCLIA [id number] [place] [address] [place] Urea nitrogen [Mass/Vol] 47 mg/dL High 9-24 [facility] Comment on above: Order Comment: Speci men Type: BLOOD SPECIMENOrdering Facility: [facility] Address: [address] [place] [address] Performed By: #### 2 4323-8, 47327-5, 15202-0 ####[facility] [id number] [place] [address] [place] Magnesium [facility] 07-12 Magnesium [Mass/Vol] 2.4 mg/dL High 1.7-2.3 [facility] Comment on above: Order Comment: Speci men Type: BLOOD SPECIMENOrdering Facility: [facility] Address: [address] [place] [address] Performed By: #### 2 4323-8, 89640-7, 34502-3 ####[facility] [id number] [place] [address] [place] NT-proBNP [facility] 07-12 Natriuretic peptide.B prohormone N-Terminal [Mass/Vol] 4783 pg/mL High <125 [facility] Comment on above: Order Comment: Speci men Type: BLOOD SPECIMENOrdering Facility: [facility] Address: [address] [place] [address] Performed By: #### 2 4323-8, 16679-7, 68133-0 ####[facility] [id number] [place] [id number] [place] ICD REMOTE CHECKon 3 AV Delay Adaptive Paced Minimum (ms) 140 ms [facility] AV Delay Adaptive Sensed Minimum (ms) 100 ms [facility] Federico LV Pacing Amplitude (volts) 2.3 V [facility] Federico LV Pacing Pulse Width (ms) 0.5 ms [facility] federico LV Sensing Amplitude (mvolts) 1.0 mV [facility] Federico RA Pacing Amplitude (volts) 2.0 V [facility] Federico RA Pacing Polarity BI [facility] Federico RA Pacing Pulse Width (ms) 0.4 ms [facility] Federico RA Sensing Amplitude (mvolts) 0.25 mV [facility] Federico RA Sensing Polarity BI [facility] Federico RV Pacing Amplitude (volts) 2.0 V [facility] Federico RV Pacing Polarity BI [facility] Federico RV Pacing Pulse Width (ms) 0.4 ms [facility] Federico RV Sensing Amplitude (mvolts) 0.3 mV [facility] Federico RV Sensing Polarity BI [facility] Detection Configuration (Vent) 2 - Zone [facility] FastVT_Detection Interval 300 ms [facility] FastVT_Therapy Configuration 1 ATP(s) + 8 Shock(s) [facility] ICD FastVT DetectionStatus ENABLED [facility] ICD-AMS EPISODES 170 {beats}/min [facility] ICD-ATP Episodes (Vent) 0 [facility] ICD-ATRIALFIBRILLATIO N 7 [facility] ICD-ATRIALTACHYCARDIA 7 [facility] ICD-Device Mfg BSX [facility] ICD-LEADIMPEDANCEATRI AL 821 ohm [facility] ICD-Percent Pacing (Atrial) 0 % [facility] ICD-Percent Pacing (Vent) 64 % [facility] ICD-Shocks Aborted (Vent) 0 [facility] [id number] 0 [facility] ICD-SHOCKSABORTED 0 [facility] ICD-SHOCKSDELIVEREDVE NTRICULAR 0 [facility] ICD-Ventricular Fibrillation 0 [facility] Implant Date 10/18/2017 [facility] Lead Impedance (LV) 1064 ohm [facility] Lead Impedance (RV) 602 ohm [facility] Lead Impedance High Voltage 96 ohm [facility] Lead1 Mfg BSX [facility] Lead2 Mfg BSX [facility] Lead3 Mfg BSX [facility] Location LV [facility] Location RA [facility] Location RV [facility] Lower Rate (bpm) 60 {beats}/min [facility] LV PACING % 92 % [facility] Max Sensor Rate (bpm) 130 {beats}/min [facility] MDT_PROG_TACHY_ZONE_D ETECTIONS_STATUS ENABLED [facility] Model G247 VIGILANT X4 CURRICULUM AND INSTRUCTION SPECIALIST-D Cl [facility] Model 4671 Acuity X4 Straight C [facility] Model 7841 Ingevity + MRI [facility] Model 0292 Endotak Relianc e 4-Site SG [facility] Pacing Mode DDD [facility] Serial Number [id number] [facility] Serial Number [id number] [facility] Serial Number [id number] [facility] Serial Number [id number] [facility] Test Charge Time 9.9 s [facility] Therapy Status (Vent) Enabled [facility] Thresh LV Capture Amplitude (volts) 1.1 V [facility] Thresh LV Capture Duration (ms) 0.5 ms [facility] Thresh RV Capture Amplitude (VOLTS) 0.6 V [facility] Thresh RV Capture Duration (MS) 0.4 ms [facility] Tracking Rate (bpm) 130 {beats}/min [facility] VF Zone Detection Interval 300 ms [facility] VF Zone Therapy Configuration 1 ATP(s) + 8 Shock(s) [facility] No Panel Informationon 07-04 BLANK _ [facility] ICD-ATRIALTACHYCARDIA 0 [facility] ICD-Fast Ventricular Tachycardia 0 [facility] Implant Date 03/31/2023 [facility] CNNURSEon 06-27-2023 CNNURSE Normal [facility] CNOVon 06-27-2023 CNOV Normal [facility] ANES POSTPROC EVALon 023 ANES POSTPROC EVAL Normal [facility] ANES PRE-OPon 06-16-2023 ANES PRE-OP Normal [facility] Basic metabolic 2000 panelon 06-16-2023 Anion gap [Moles/Vol] 14 mmol/L Normal 9-18 [facility] Comment on above: Order Comment: Speci men Type: BLOOD SPECIMENOrdering Facility: [facility] Address: [address] [place] [address] Performed By: #### 2 4321-2 ####[facility] LABCLIA [id number] [facility] [id number] [address] [place] Calcium [Mass/Vol] 10.2 mg/dL Normal 8.5-10.2 [facility] Comment on above: Order Comment: Speci men Type: BLOOD SPECIMENOrdering Facility: [facility] Address: [address] [place] [address] Performed By: #### 2 4321-2 ####[facility] LABCLIA [id number] [place] [address] [place] Chloride [Moles/Vol] 98 mmol/L Normal 97-105 [facility] Comment on above: Order Comment: Speci men Type: BLOOD SPECIMENOrdering Facility: [facility] Address: [address] [place] [address] Performed By: #### 2 4321-2 ####[facility] LABCLIA [id number] [place] [address] [place] CO2 [Moles/Vol] 25 mmol/L Normal 22-30 [facility] Comment on above: Order Comment: Speci men Type: BLOOD SPECIMENOrdering Facility: [facility] Address: [address] [place] [address] Performed By: #### 2 4321-2 ####[facility] LABCLIA [id number] [place] [address] [place] Creatinine [Mass/Vol] 2.00 mg/dL High 0.73-1.22 [facility] Comment on above: Order Comment: Speci men Type: BLOOD SPECIMENOrdering Facility: [facility] Address: [address] [place] [address] Performed By: #### 2 4321-2 ####[facility] LABCLIA [id number] [place] [address] [place] Creatinine and Glomerular filtration rate.predicted panel (S/P/Bld) 36 mL/min/1.73m??? Low >=60 [facility] Comment on above: Order Comment: Speci men Type: BLOOD SPECIMENOrdering Facility: [facility] Address: [address] [place] [address] Result Comment: Syl mated Glomerular Filtration Rate [...] actual GFR. Performed By: #### 2 4321-2 ####[facility] LABIA [id number] [place] [address] [place] Glucose [Mass/Vol] 216 mg/dL High 74-99 [facility] Comment on above: Order Comment: Speci men Type: BLOOD SPECIMENOrdering Facility: [facility] Address: [address] [place] [address] Result Comment: The [place] [employer] (ADA) provides guidance for cutoff [...] Standards of Medical Care in Diabetes 2016, [place] [employer]. Diabetes Care. 2016.39(Suppl 1). Performed By: #### 2 4321-2 ####[facility] LABIA [id number] [place] [address] [place] Potassium [Moles/Vol] 4.3 mmol/L Normal 3.7-5.1 [facility] Comment on above: Order Comment: Joseline clemons Type: BLOOD SPECIMENOrdering Facility: [facility] Address: [address] [place] [address] Performed By: #### 2 4321-2 ####[facility] LABIA [id number] [place] [address] [place] Sodium [Moles/Vol] 137 mmol/L Normal 136-144 [facility] Comment on above: Order Comment: Joseline men Type: BLOOD SPECIMENOrdering Facility: [facility] Address: [address] [place] [address] Performed By: #### 2 4321-2 ####[facility] LABCLIA [id number] [place] [id number] [place] Urea nitrogen [Mass/Vol] 59 mg/dL High 9-24 [facility] Comment on above: Order Comment: Speci men Type: BLOOD SPECIMENOrdering Facility: [facility] Address: [place] [place] [id number] Performed By: #### 2 [id number] ####[facility] LABCLIA [id number] [place] [id number] [place] CNOVon 06-16-2023 CNOV Normal [facility] ECG COMPLETEon 06-16-2023 ECG COMPLETE Normal [facility] ECG COMPLETE Normal [facility] HISTORY PHYSICALon 3 HISTORY PHYSICAL Normal [facility] ICD CLINIC CHECKon 3 AV Delay Adaptive Paced Minimum (ms) 140 ms [facility] AV Delay Adaptive Sensed Minimum (ms) 100 ms [facility] Federico LV Pacing Amplitude (volts) 2.3 V [facility] Federico LV Pacing Pulse Width (ms) 0.5 ms [facility] federico LV Sensing Amplitude (mvolts) 1.0 mV [facility] Federico RA Pacing Amplitude (volts) 5.0 V [facility] Federico RA Pacing Polarity BI [facility] Federico RA Pacing Pulse Width (ms) 0.4 ms [facility] Federico RA Sensing Amplitude (mvolts) 0.25 mV [facility] Federico RA Sensing Polarity BI [facility] Federico RV Pacing Amplitude (volts) 2.0 V [facility] Federico RV Pacing Polarity BI [facility] Federico RV Pacing Pulse Width (ms) 0.4 ms [facility] Federico RV Sensing Amplitude (mvolts) 0.3 mV [facility] Feedrico RV Sensing Polarity BI [facility] Detection Configuration (Vent) 2 - Zone [facility] FastVT_Detection Interval 300 ms [facility] FastVT_Therapy Configuration 1 ATP(s) + 8 Shock(s) [facility] ICD FastVT DetectionStatus ENABLED [facility] ICD-AMS EPISODES 170 {beats}/min [facility] ICD-ATP Episodes (Vent) 0 [facility] ICD-ATRIALFIBRILLATIO N 3 [facility] ICD-Device Mfg BSX [facility] ICD-Fast Ventricular Tachycardia 1 [facility] ICD-LEADIMPEDANCEATRI AL 838 ohm [facility] ICD-Percent Pacing (Atrial) 0 % [facility] ICD-Percent Pacing (Vent) 83 % [facility] ICD-Shocks Aborted (Vent) 0 [facility] [id number] 0 [facility] ICD-SHOCKSABORTED 0 [facility] ICD-SHOCKSDELIVEREDVE NTRICULAR 0 [facility] ICD-Ventricular Fibrillation 0 [facility] Implant Date 10/18/2017 [facility] Lead Impedance (LV) 1043 ohm [facility] Lead Impedance (RV) 566 ohm [facility] Lead Impedance High Voltage 87 ohm [facility] Lead1 Mfg BSX [facility] Lead2 Mfg BSX [facility] Lead3 Mfg BSX [facility] Location LV [facility] Location RA [facility] Location RV [facility] Lower Rate (bpm) 60 {beats}/min [facility] LV PACING % 92 % [facility] Max Sensor Rate (bpm) 130 {beats}/min [facility] MDT_PROG_TACHY_ZONE_D ETECTIONS_STATUS ENABLED [facility] Model G247 VIGILANT X4 CURRICULUM AND INSTRUCTION SPECIALIST-D Cl [facility] Model 4671 Acuity X4 Straight C [facility] Model 7841 Ingevity + MRI [facility] Model 0292 [place] Relianc e 4-Site SG [facility] Pacing Mode DDD [facility] Serial Number [id number] [facility] Serial Number [id number] [facility] Serial Number [id number] [facility] Serial Number [id number] [facility] Test Charge Time 9.9 s [facility] Therapy Status (Vent) Enabled [facility] Thresh LV Capture Amplitude (volts) 1.1 V [facility] Thresh LV Capture Duration (ms) 0.5 ms [facility] Thresh RV Capture Amplitude (VOLTS) 0.7 V [facility] Thresh RV Capture Duration (MS) 0.4 ms [facility] Tracking Rate (bpm) 130 {beats}/min [facility] VF Zone Detection Interval 300 ms [facility] VF Zone Therapy Configuration 1 ATP(s) + 8 Shock(s) [facility] No Panel Informationon 11-10 -2023 BLANK _ [facility] ICD-Fast Ventricular Tachycardia 0 [facility] Implant Date 03/31/2023 [facility] CNCNPATEDon 06-15-2023 CNCNPATED Normal [facility] ICD REMOTE CHECKon 3 AV Delay Adaptive Paced Minimum (ms) 140 ms [facility] AV Delay Adaptive Sensed Minimum (ms) 100 ms [facility] Federico LV Pacing Amplitude (volts) 2.3 V [facility] Federico LV Pacing Pulse Width (ms) 0.5 ms [facility] federico LV Sensing Amplitude (mvolts) 1.0 mV [facility] Federico RA Pacing Amplitude (volts) 5.0 V [facility] Federico RA Pacing Polarity BI [facility] Federico RA Pacing Pulse Width (ms) 0.4 ms [facility] Federico RA Sensing Amplitude (mvolts) 0.25 mV [facility] Federico RA Sensing Polarity BI [facility] Federico RV Pacing Amplitude (volts) 2.0 V [facility] Federico RV Pacing Polarity BI [facility] Federico RV Pacing Pulse Width (ms) 0.4 ms [facility] Federico RV Sensing Amplitude (mvolts) 0.3 mV [facility] Federico RV Sensing Polarity BI [facility] Detection Configuration (Vent) 2 - Zone [facility] FastVT_Detection Interval 300 ms [facility] FastVT_Therapy Configuration 1 ATP(s) + 8 Shock(s) [facility] ICD FastVT DetectionStatus ENABLED [facility] ICD-AMS EPISODES 170 {beats}/min [facility] ICD-ATP Episodes (Vent) 0 [facility] ICD-ATRIALFIBRILLATIO N 3 [facility] ICD-ATRIALTACHYCARDIA 3 [facility] ICD-Device Mfg BSX [facility] ICD-Fast Ventricular Tachycardia 1 [facility] ICD-LEADIMPEDANCEATRI AL 800 ohm [facility] ICD-Percent Pacing (Atrial) 0 % [facility] ICD-Percent Pacing (Vent) 83 % [facility] ICD-Shocks Aborted (Vent) 0 [facility] [id number] 0 [facility]v [facility] ICD-SHOCKSABORTED 0 [facility] ICD-SHOCKSDELIVEREDVE NTRICULAR 0 [facility] ICD-Ventricular Fibrillation 0 [facility] Implant Date 10/18/2017 [facility] Lead Impedance (LV) 1029 ohm [facility] Lead Impedance (RV) 551 ohm [facility] Lead Impedance High Voltage 81 ohm [facility] Lead1 Mfg BSX [facility] Lead2 Mfg BSX [facility] Lead3 Mfg BSX [facility] Location LV [facility] Location RA [facility] Location RV [facility] Lower Rate (bpm) 60 {beats}/min [facility] LV PACING % 93 % [facility] Max Sensor Rate (bpm) 130 {beats}/min [facility] MDT_PROG_TACHY_ZONE_D ETECTIONS_STATUS ENABLED [facility] Model G247 VIGILANT X4 CURRICULUM AND INSTRUCTION SPECIALIST-D Cl [facility] Model 4671 Acuity X4 Straight C [facility] Model 7841 Ingevity + MRI [facility] Model 0292 [place] Relianc e 4-Site SG [facility] Pacing Mode DDD [facility] Serial Number [id number] [facility] Serial Number [id number] [facility] Serial Number [id number] [facility] Serial Number [id number] [facility] Test Charge Time 9.9 s [facility] Therapy Status (Vent) Enabled [facility] Thresh LV Capture Amplitude (volts) 1.1 V [facility] Thresh LV Capture Duration (ms) 0.5 ms [facility] Thresh RV Capture Amplitude (VOLTS) 0.7 V [facility] Thresh RV Capture Duration (MS) 0.4 ms [facility] Tracking Rate (bpm) 130 {beats}/min [facility] VF Zone Detection Interval 300 ms [facility] VF Zone Therapy Configuration 1 ATP(s) + 8 Shock(s) [facility] No Panel Informationon 06-12 BLANK _ [facility] ICD-ATRIALTACHYCARDIA 1 [facility] ICD-ATRIALTACHYCARDIA 0 [facility] ICD-Fast Ventricular Tachycardia 0 [facility] Implant Date 03/31/2023 [facility] CNPNon 06-07-2023 CNPN Normal [facility] ICD REMOTE CHECKon AV Delay Adaptive Paced Minimum (ms) 140 ms [facility] AV Delay Adaptive Sensed Minimum (ms) 100 ms [facility] Federico LV Pacing Amplitude (volts) 2.3 V [facility] Federico LV Pacing Pulse Width (ms) 0.5 ms [facility] federico LV Sensing Amplitude (mvolts) 1.0 mV [facility] Federico RA Pacing Amplitude (volts) 5.0 V [facility] Federico RA Pacing Polarity BI [facility] Federico RA Pacing Pulse Width (ms) 0.4 ms [facility] Federico RA Sensing Amplitude (mvolts) 0.25 mV [facility] Federico RA Sensing Polarity BI [facility] Fed[place]ico RV Pacing Amplitude (volts) 2.0 V [facility] Fed[place]ico RV Pacing Polarity BI [facility] Federico RV Pacing Pulse Width (ms) 0.4 ms [facility] Federico RV Sensing Amplitude (mvolts) 0.3 mV [facility] Federico RV Sensing Polarity BI [facility] Detection Configuration (Vent) 2 - Zone [facility] FastVT_Detection Interval 300 ms [facility] FastVT_Therapy Configuration 1 ATP(s) + 8 Shock(s) [facility] ICD FastVT DetectionStatus ENABLED [facility] ICD-AMS EPISODES 170 {beats}/min [facility] ICD-ATP Episodes (Vent) 0 [facility] ICD-ATRIALFIBRILLATIO N 3 [facility] ICD-ATRIALTACHYCARDIA 3 [facility] ICD-Device Mfg BSX [facility] ICD-Fast Ventricular Tachycardia 1 [facility] ICD-LEADIMPEDANCEATRI AL 765 ohm [facility] ICD-Percent Pacing (Atrial) 0 % [facility] ICD-Percent Pacing (Vent) 83 % [facility] ICD-Shocks Aborted (Vent) 0 [facility] [id number] 0 [facility] ICD-SHOCKSABORTED 0 [facility] ICD-SHOCKSDELIVEREDVE NTRICULAR 0 [facility] ICD-Ventricular Fibrillation 0 [facility] Implant Date 10/18/2017 [facility] Lead Impedance (LV) 966 ohm [facility] Lead Impedance (RV) 554 ohm [facility] Lead Impedance High Voltage 81 ohm [facility] Lead1 Mfg BSX [facility] Lead2 Mfg BSX [facility] Lead3 Mfg BSX [facility] Location LV [facility] Location RA [facility] Location RV [facility] Lower Rate (bpm) 60 {beats}/min [facility] LV PACING % 94 % [facility] Max Sensor Rate (bpm) 130 {beats}/min [facility] MDT_PROG_TACHY_ZONE_D ETECTIONS_STATUS ENABLED [facility] Model G247 VIGILANT X4 CURRICULUM AND INSTRUCTION SPECIALIST-D Cl [facility] Model 4671 Acuity X4 Straight C [facility] Model 7841 Ingevity + MRI [facility] Model 0292 [place] Relianc e 4-Site SG [facility] Pacing Mode DDD [facility] Serial Number [id number] [facility] Serial Number [id number] [facility] Serial Number [id number] [facility] Serial Number [id number] [facility] Test Charge Time 9.9 s [facility] Therapy Status (Vent) Enabled [facility] Thresh LV Capture Amplitude (volts) 1.0 V [facility] Thresh LV Capture Duration (ms) 0.5 ms [facility] Thresh RV Capture Amplitude (VOLTS) 0.7 V [facility] Thresh RV Capture Duration (MS) 0.4 ms [facility] Tracking Rate (bpm) 130 {beats}/min [facility] VF Zone Detection Interval 300 ms [facility] VF Zone Therapy Configuration 1 ATP(s) + 8 Shock(s) [facility] No Panel Informationon 06-05 BLANK _ [facility] ICD-ATRIALTACHYCARDIA 1 [facility] ICD-ATRIALTACHYCARDIA 0 [facility] ICD-Fast Ventricular Tachycardia 0 [facility] Implant Date 03/31/2023 [facility] CNPNon 05-24-2023 CNPN Normal [facility] ICD REMOTE CHECKon AV Delay Adaptive Paced Minimum (ms) 140 ms [facility] AV Delay Adaptive Sensed Minimum (ms) 100 ms [facility] Federico LV Pacing Amplitude (volts) 2.3 V [facility] Federico LV Pacing Pulse Width (ms) 0.5 ms [facility] federico LV Sensing Amplitude (mvolts) 1.0 mV [facility] Federico RA Pacing Amplitude (volts) 5.0 V [facility] Federico RA Pacing Polarity BI [facility] Federico RA Pacing Pulse Width (ms) 0.4 ms [facility] Federico RA Sensing Amplitude (mvolts) 0.25 mV [facility] Federico RA Sensing Polarity BI [facility] Federico RV Pacing Amplitude (volts) 2.0 V [facility] Federico RV Pacing Polarity BI [facility] Federico RV Pacing Pulse Width (ms) 0.4 ms [facility] Federico RV Sensing Amplitude (mvolts) 0.3 mV [facility] Federico RV Sensing Polarity BI [facility] Detection Configuration (Vent) 2 - Zone [facility] FastVT_Detection Interval 300 ms [facility] FastVT_Therapy Configuration 1 ATP(s) + 8 Shock(s) [facility] ICD FastVT DetectionStatus ENABLED [facility] ICD-AMS EPISODES 170 {beats}/min [facility] ICD-ATP Episodes (Vent) 0 [facility] ICD-ATRIALFIBRILLATIO N 1 [facility] ICD-Device Mfg BSX [facility] ICD-LEADIMPEDANCEATRI AL 804 ohm [facility] ICD-Percent Pacing (Atrial) 0 % [facility] ICD-Percent Pacing (Vent) 83 % [facility] ICD-Shocks Aborted (Vent) 0 [facility] [id number] 0 [facility] ICD-SHOCKSABORTED 0 [facility] ICD-SHOCKSDELIVEREDVE NTRICULAR 0 [facility] ICD-Ventricular Fibrillation 0 [facility] Implant Date 10/18/2017 [facility] Lead Impedance (LV) 1060 ohm [facility] Lead Impedance (RV) 529 ohm [facility] Lead Impedance High Voltage 84 ohm [facility] Lead1 Mfg BSX [facility] Lead2 Mfg BSX [facility] Lead3 Mfg BSX [facility] Location LV [facility] Location RA [facility] Location RV [facility] Lower Rate (bpm) 60 {beats}/min [facility] LV PACING % 93 % [facility] Max Sensor Rate (bpm) 130 {beats}/min [facility] MDT_PROG_TACHY_ZONE_D ETECTIONS_STATUS ENABLED [facility] Model G247 VIGILANT X4 CURRICULUM AND INSTRUCTION SPECIALIST-D Cl [facility] Model 4671 Acuity X4 Straight C [facility] Model 7841 Ingevity + MRI [facility] Model 0292 [place] Relianc e 4-Site SG [facility] Pacing Mode DDD [facility] Serial Number [id number] [facility] Serial Number [id number] [facility] Serial Number [id number] [facility] Serial Number [id number] [facility] Test Charge Time 9.9 s [facility] Therapy Status (Vent) Enabled [facility] Thresh LV Capture Amplitude (volts) 1.3 V [facility] Thresh LV Capture Duration (ms) 0.5 ms [facility] Thresh RV Capture Amplitude (VOLTS) 0.7 V [facility] Thresh RV Capture Duration (MS) 0.4 ms [facility] Tracking Rate (bpm) 130 {beats}/min [facility] VF Zone Detection Interval 300 ms [facility] VF Zone Therapy Configuration 1 ATP(s) + 8 Shock(s) [facility] No Panel Informationon 05-19 BLANK _ [facility] ICD-ATRIALTACHYCARDIA 1 [facility] ICD-ATRIALTACHYCARDIA 0 [facility] ICD-Fast Ventricular Tachycardia 0 [facility] Implant Date 03/31/2023 [facility] CNPNon 05-16-2023 CNPN Normal [facility] CNPNon 05-15-2023 CNPN Normal [facility] ICD CLINIC CHECKon AV Delay Adaptive Paced Minimum (ms) 140 ms [facility] AV Delay Adaptive Sensed Minimum (ms) 100 ms [facility] Federico LV Pacing Amplitude (volts) 2.3 V [facility] Federico LV Pacing Pulse Width (ms) 0.5 ms [facility] federico LV Sensing Amplitude (mvolts) 1.0 mV [facility] Federico RA Pacing Amplitude (volts) 5.0 V [facility] Federico RA Pacing Polarity BI [facility] Fed[place]ico RA Pacing Pulse Width (ms) 0.4 ms [facility] Federico RA Sensing Amplitude (mvolts) 0.25 mV [facility] Federico RA Sensing Polarity BI [facility] Federico RV Pacing Amplitude (volts) 2.0 V [facility] [employer]ico RV Pacing Polarity BI [facility] Fed[place]ico RV Pacing Pulse Width (ms) 0.4 ms [facility] Federico RV Sensing Amplitude (mvolts) 0.3 mV [facility] Federico RV Sensing Polarity BI [facility] Detection Configuration (Vent) 2 - Zone [facility] FastVT_Detection Interval 300 ms [facility] FastVT_Therapy Configuration 1 ATP(s) + 8 Shock(s) [facility] ICD FastVT DetectionStatus ENABLED [facility] ICD-AMS EPISODES 170 {beats}/min [facility] ICD-ATP Episodes (Vent) 0 [facility] ICD-ATRIALFIBRILLATIO N 6 [facility] ICD-Device Mfg BSX [facility] ICD-LEADIMPEDANCEATRI AL 816 ohm [facility] ICD-Percent Pacing (Atrial) 0 % [facility] ICD-Percent Pacing (Vent) 52 % [facility] ICD-Rhythm Atrial Fibrillation [facility] ICD-Shocks Aborted (Vent) 0 [facility] [id number] 0 [facility] ICD-SHOCKSABORTED 0 [facility] ICD-SHOCKSDELIVEREDVE NTRICULAR 0 [facility] ICD-Ventricular Fibrillation 0 [facility] Implant Date 10/18/2017 [facility] Lead Impedance (LV) 1029 ohm [facility] Lead Impedance (RV) 532 ohm [facility] Lead Impedance High Voltage 91 ohm [facility] Lead1 Mfg BSX [facility] Lead2 Mfg BSX [facility] Lead3 Mfg BSX [facility] Location LV [facility] Location RA [facility] Location RV [facility] Lower Rate (bpm) 60 {beats}/min [facility] LV PACING % 91 % [facility] Max Sensor Rate (bpm) 130 {beats}/min [facility] MDT_PROG_TACHY_ZONE_D ETECTIONS_STATUS ENABLED [facility] Model G247 VIGILANT X4 CURRICULUM AND INSTRUCTION SPECIALIST-D Cl [facility] Model 4671 Acuity X4 Straight C [facility] Model 7841 Ingevity + MRI [facility] Model 0292 [place] Relianc e 4-Site SG [facility] Pacemaker Dependent? NO [facility] Pacing Mode DDD [facility] Serial Number [id number] [facility] Serial Number [id number] [facility] Serial Number [id number] [facility] Serial Number [id number] [facility] Test Charge Time 9.9 s [facility] Therapy Status (Vent) Enabled [facility] Thresh LV Capture Amplitude (volts) 1.1 V [facility] Thresh LV Capture Duration (ms) 1.0 ms [facility] Thresh RA Capture Amplitude (volts) 0.6 V [facility] Thresh RA Capture Duration (ms) 0.4 ms [facility] Thresh RA Sensing Amplitude (mvolts) 3 mV [facility] Thresh RV Capture Amplitude (VOLTS) 0.7 V [facility] Thresh RV Capture Duration (MS) 0.4 ms [facility] Thresh RV Sensing Amplitude (MVOLTS) 13.9 mV [facility] Tracking Rate (bpm) 130 {beats}/min [facility] VF Zone Detection Interval 300 ms [facility] VF Zone Therapy Configuration 1 ATP(s) + 8 Shock(s) [facility] No Panel Informationon 05-12 BLANK _ [facility] ICD-Fast Ventricular Tachycardia 0 [facility] Implant Date 03/31/2023 [facility] CNPNon 04-27-2023 CNPN Normal [facility] Basic metabolic 2000 panelon 04-26-2023 Anion gap [Moles/Vol] 15 mmol/L 9 - 18 mmol/L [facility] Calcium [Mass/Vol] 9.8 mg/dL 8.5 - 10. 2 mg/dL [facility] Chloride [Moles/Vol] 96 mmol/L Low 97 - 10 5 mmol/L [facility] CO2 [Moles/Vol] 24 mmol/L 22 - 30 mmol/L [facility] Creatinine [Mass/Vol] 2.07 mg/dL High 0.73 - 1.22 mg/dL [facility] Estimated Glomerular Filtration Rate 35 mL/min/1.73m Low >=60 mL/min/1.73 m [facility] Glucose [Mass/Vol] 100 mg/dL High 74 - 99 mg/dL [facility] Potassium [Moles/Vol] 4.6 mmol/L 3.7 - 5.1 mmol/L [facility] Sodium [Moles/Vol] 135 mmol/L Low 136 - 144 mmol/L [facility] Urea nitrogen [Mass/Vol] 77 mg/dL High 9 - 24 mg/dL [facility] Anion gap [Moles/Vol] 15 mmol/L Normal 9-18 [facility] Comment on above: Order Comment: Speci men Type: BLOOD SPECIMENOrdering Facility: [facility] Address: [address] [place] [address] Performed By: #### 3 [id number], [id number] ####[facility] LABCLIA [id number] [place] [address] [place] Calcium [Mass/Vol] 9.8 mg/dL Normal 8.5-10.2 [facility] Comment on above: Order Comment: Speci men Type: BLOOD SPECIMENOrdering Facility: [facility] Address: [address] [place] [address] Performed By: #### 3 3762-6, 58930-0 ####[facility] LABCLIA [id number] [place] [address] [place] Chloride [Moles/Vol] 96 mmol/L Low 97-105 [facility] Comment on above: Order Comment: Speci men Type: BLOOD SPECIMENOrdering Facility: [facility] Address: [address] [place] [address] Performed By: #### 3 3762-6, 67063-9 ####[facility] LABIA [id number] [address] [place] CO2 [Moles/Vol] 24 mmol/L Normal 22-30 [facility] Comment on above: Order Comment: Speci men Type: BLOOD SPECIMENOrdering Facility: [facility] Address: [address] [place] [address] Performed By: #### 3 3762-6, 46971-6 ####[facility] LABIA [id number] [address] OF [facility] Creatinine [Mass/Vol] 2.07 mg/dL High 0.73-1.22 [facility] Comment on above: Order Comment: Speci men Type: BLOOD SPECIMENOrdering Facility: [facility] Address: [address] [place] [address] Performed By: #### 3 3762-6, 91259-3 ####[facility] LABIA [id number] [address] Creatinine and Glomerular filtration rate.predicted panel (S/P/Bld) 35 mL/min/1.73m??? Low >=60 [facility] Comment on above: Order Comment: Speci men Type: BLOOD SPECIMENOrdering Facility: [facility] Address: [address] [place] [address] Result Comment: Syl mated Glomerular Filtration Rate [...] actual GFR. Performed By: #### 3 3762-6, 08507-1 ####[facility] LABCLIA [id number] [place] [address] [place] Glucose [Mass/Vol] 100 mg/dL High 74-99 [facility] Comment on above: Order Comment: Speci men Type: BLOOD SPECIMENOrdering Facility: [facility] Address: [address] [place] [address] Result Comment: The [place] [employer] (ADA) provides guidance for cutoff [...] Standards of Medical Care in Diabetes 2016, [place] [employer]. Diabetes Care. 2016.39(Suppl 1). Performed By: #### 3 3762-6, 46882-5 ####[facility] LABIA [id number] [place] [address] [place] Potassium [Moles/Vol] 4.6 mmol/L Normal 3.7-5.1 [facility] Comment on above: Order Comment: Speci men Type: BLOOD SPECIMENOrdering Facility: [facility] Address: [address] [address] Performed By: #### 3 3762-6, 44584-5 ####[facility] LABIA [id number] [place] [address] [place] Sodium [Moles/Vol] 135 mmol/L Low 136-144 [facility] Comment on above: Order Comment: Speci men Type: BLOOD SPECIMENOrdering Facility: [facility] Address: [address] [place] [address] Performed By: #### 3 3762-6, 65339-7 ####[facility] LABCLIA [id number] [place] [address] [place] Urea nitrogen [Mass/Vol] 77 mg/dL High 9-24 [facility] Comment on above: Order Comment: Speci men Type: BLOOD SPECIMENOrdering Facility: [facility] Address: [address] [place] [address] Performed By: #### 3 3762-6, 47739-0 ####[facility] LABCLIA [id number] [place] [address] [place] CNCNPATEDon 04-26-2023 CNCNPATED Normal [facility] CNOVon 04-26-2023 CNOV Normal [facility] NT PRO BNPon 04-26-2023 Natriuretic peptide.B prohormone N-Terminal [Mass/Vol] 6843 pg/mL High <125 pg/mL [facility] NT-proBNP SerPl-mCncon 04-26 Natriuretic peptide.B prohormone N-Terminal [Mass/Vol] 6843 pg/mL High <125 [facility] Comment on above: Order Comment: Speci men Type: BLOOD SPECIMENOrdering Facility: [facility] Address: [address] [place] [address] Performed By: #### 3 3762-6, 56185-9 ####[facility] LABIA [id number] [place] [address] [place] CNPNon 04-19-2023 CNPN Normal [facility] CNPNon 04-14-2023 CNPN Normal [facility] CNPTOUTREACHon 04-14-2023 CNPTOUTREACH Normal [facility] CASE MANAGEMon 04-13-2023 CASE MANAGEM Normal [facility] CBC panel Auto (Bld)on 04-13 Erythrocyte distribution width (RBC) [Ratio] 19.7 % High 11.5-15.0 [facility] Comment on above: Order Comment: Speci men Type: BLOOD SPECIMENOrdering Facility: [facility] Address: [address] Performed By: #### 5 8410-2 ####[facility] LABCLIA [id number] [place] [address] [place] Hematocrit (Bld) [Volume fraction] 33.9 % Low 39.0-51.0 [facility] Comment on above: Order Comment: Speci men Type: BLOOD SPECIMENOrdering Facility: [facility] Address: [address] Performed By: #### 5 8410-2 ####[facility] LABIA [id number] [place] [address] [place] Hemoglobin (Bld) [Mass/Vol] 10.4 g/dL Low 13.0-17.0 [facility] Comment on above: Order Comment: Speci men Type: BLOOD SPECIMENOrdering Facility: [facility] Address: [address] [place] [address] Performed By: #### 5 8410-2 ####[facility] LABIA [id number] [place] [address] [place] MCH (RBC) [Entitic mass] 24.0 pg Low 26.0-34.0 [facility] Comment on above: Order Comment: Speci men Type: BLOOD SPECIMENOrdering Facility: [facility] Address: [address] Performed By: #### 5 8410-2 ####[facility] LABCLIA [id number] [place] [address] [place] MCHC (RBC) [Mass/Vol] 30.7 g/dL Normal 30.5-36.0 [facility] Comment on above: Order Comment: Speci men Type: BLOOD SPECIMENOrdering Facility: [facility] Address: [address] [place], [place] [address] Performed By: #### 5 8410-2 ####[facility] LABCLIA [id number] [place] [address] [place] MCV (RBC) [Entitic vol] 78.1 fL Low 80.0-100.0 [facility] Comment on above: Order Comment: Speci men Type: BLOOD SPECIMENOrdering Facility: [facility] Address: [address] [place], [place] [address] Performed By: #### 5 8410-2 ####[facility] LABIA [id number] [place] [address] [place] Nucleated RBC (Bld) [#/Vol] 10*3/uL Normal <0.01 [facility] Comment on above: Order Comment: Speci men Type: BLOOD SPECIMENOrdering Facility: [facility] Address: [address] [place], [place] [address] Performed By: #### 5 8410-2 ####[facility] [id number] [place] [address] [place] Platelet mean volume (Bld) [Entitic vol] 10.2 fL Normal 9.0-12.7 [facility] Comment on above: Order Comment: Speci men Type: BLOOD SPECIMENOrdering Facility: [facility] Address: [address] [place], [place] [address] Performed By: #### 5 8410-2 ####[facility] [id number] [place] [address] [place] Platelets (Bld) [#/Vol] 242 10*3/uL Normal 150-400 [facility] Comment on above: Order Comment: Speci men Type: BLOOD SPECIMENOrdering Facility: [facility] Address: [address] [place], [place] [address] Performed By: #### 5 8410-2 ####[facility] LABIA [id number] [place] [address] [place] RBC (Bld) [#/Vol] 4.34 10*6/uL Normal 4.20-6.00 [facility] Comment on above: Order Comment: Speci men Type: BLOOD SPECIMENOrdering Facility: [facility] Address: [address] [place], [place] [address] Performed By: #### 5 8410-2 ####[facility] LABCLIA [id number] [place] [address] [place] WBC (Bld) [#/Vol] 6.71 10*3/uL Normal 3.70-11.00 [facility] Comment on above: Order Comment: Speci men Type: BLOOD SPECIMENOrdering Facility: [facility] Address: [address] [place], [place] [address] Performed By: #### 5 8410-2 ####[facility] LABCLIA [id number] [place] [address] [place] CNDSon 04-13-2023 CNDS Normal [facility] Comprehensive metabolic 2000 panelon 04-13-2023 Albumin [Mass/Vol] 3.2 g/dL Low 3.9-4.9 [facility] Comment on above: Order Comment: Speci men Type: BLOOD SPECIMENOrdering Facility: [facility] Address: [address] [place], [place] [address] Performed By: #### 2 4323-8, 66085-3 ####[facility] LABCLIA [id number] [place] [address] [place] ALP [Catalytic activity/Vol] 162 U/L High 38-113 [facility] Comment on above: Order Comment: Speci men Type: BLOOD SPECIMENOrdering Facility: [facility] Address: [address] [place], [place] [address] Performed By: #### 2 4323-8, ####[facility] LABCLIA [id number] [place] [id number] [place] ALT [Catalytic activity/Vol] 45 U/L Normal 10-54 [facility] Comment on above: Order Comment: Speci men Type: BLOOD SPECIMENOrdering Facility: [facility] Address: [address] Performed By: #### 2 432-8, ####[facility] LABCLIA [id number] [place] [address] [place] Anion gap [Moles/Vol] 13 mmol/L Normal 9-18 [facility] Comment on above: Order Comment: Speci men Type: BLOOD SPECIMENOrdering Facility: [facility] Address: [address] [place] [address] Performed By: #### 2 432-8, ####[facility] LABIA [id number] [place] [address] [place] AST [Catalytic activity/Vol] 42 U/L High 14-40 [facility] Comment on above: Order Comment: Speci men Type: BLOOD SPECIMENOrdering Facility: [facility] Address: [address] [place], [place] [address] Performed By: #### 2 8, ####[facility] LABIA [id number] [place] [address] [place] Bilirubin [Mass/Vol] 0.9 mg/dL Normal 0.2-1.3 [facility] Comment on above: Order Comment: Speci men Type: BLOOD SPECIMENOrdering Facility: [facility] Address: [address] Performed By: #### 2 4323-8, ####[facility] LABIA [id number] [place] [address] [place] Calcium [Mass/Vol] 8.7 mg/dL Normal 8.5-10.2 [facility] Comment on above: Order Comment: Speci men Type: BLOOD SPECIMENOrdering Facility: [facility] Address: [address] [place] [address] Performed By: #### 2 4323-8, ####[facility] LABCLIA [id number] [place] [address] [place] Chloride [Moles/Vol] 94 mmol/L Low 97-105 [facility] Comment on above: Order Comment: Speci men Type: BLOOD SPECIMENOrdering Facility: [facility] Address: [address] Performed By: #### 2 4323-8, ####[facility] LABCLIA [id number] [place] [address] [place] CO2 [Moles/Vol] 25 mmol/L Normal 22-30 [facility] Comment on above: Order Comment: Speci men Type: BLOOD SPECIMENOrdering Facility: [facility] Address: [address] [place], [place] [address] Performed By: #### 2 43238, ####[facility] LABIA [id number] [place] [address] [place] Creatinine [Mass/Vol] 2.43 mg/dL High 0.73-1.22 [facility] Comment on above: Order Comment: Speci men Type: BLOOD SPECIMENOrdering Facility: [facility] Address: [address] [place], [place] [address] Performed By: #### 2 4328, ####[facility] LABCLIA [id number] [place] [address] [place] Creatinine and Glomerular filtration rate.predicted panel (S/P/Bld) 29 mL/min/1.73m??? Low >=60 [facility] Comment on above: Order Comment: Speci men Type: BLOOD SPECIMENOrdering Facility: [facility] Address: [address] [place], [place] [address] Result Comment: Syl mated Glomerular Filtration Rate [...] actual GFR. Performed By: #### 2 4323-8, ####[facility] LABIA [id number] [place] [address] [place] Glucose [Mass/Vol] 108 mg/dL High 74-99 [facility] Comment on above: Order Comment: Speci men Type: BLOOD SPECIMENOrdering Facility: [facility] Address: [address] [address] Result Comment: The [place] [employer] (ADA) provides guidance for cutoff [...] Standards of Medical Care in Diabetes 2016, [place] [employer]. Diabetes Care. 2016.39(Suppl 1). Performed By: #### 2 432-, ####[facility] LABIA [id number] [place] [address] [place] Potassium [Moles/Vol] 5.0 mmol/L Normal 3.7-5.1 [facility] Comment on above: Order Comment: Joseline clemons Type: BLOOD SPECIMENOrdering Facility: [facility] Address: [address] [id number] Performed By: #### 2 4323-8, ####[facility] LABIA [id number] [place] [address] [place] Protein [Mass/Vol] 6.0 g/dL Low 6.3-8.0 [facility] Comment on above: Order Comment: Speci men Type: BLOOD SPECIMENOrdering Facility: [facility] Address: [address] [address] Performed By: #### 2 4323-8, ####[facility] LABCLIA [id number] [place] [address] [place] Sodium [Moles/Vol] 132 mmol/L Low 136-144 [facility] Comment on above: Order Comment: Speci men Type: BLOOD SPECIMENOrdering Facility: [facility] Address: [address] [place] [address] Performed By: #### 2 4323-8, ####[facility] LABCLIA [id number] [place] [address] [place] Urea nitrogen [Mass/Vol] 62 mg/dL High 9-24 [facility] Comment on above: Order Comment: Speci men Type: BLOOD SPECIMENOrdering Facility: [facility] Address: [address] [place] [address] Performed By: #### 2 4323-8, ####[facility] LABCLIA [id number] [place] [address] [place] Magnesium SerPl-mCncon 04-13 Magnesium [Mass/Vol] 2.6 mg/dL High 1.7-2.3 [facility] Comment on above: Order Comment: Speci men Type: BLOOD SPECIMENOrdering Facility: [facility] Address: [address] [place], [place] [address] Performed By: #### 2 4323-8, ####[facility] LABCLIA [id number] [place] [id number] [place] NUTRITIONon 04-13-2023 NUTRITION Normal [facility] CBC panel Auto (Bld)on 04-12 Erythrocyte distribution width (RBC) [Ratio] 19.9 % High 11.5-15.0 [facility] Comment on above: Order Comment: Speci men Type: BLOOD SPECIMENOrdering Facility: [facility] Address: [address] [place] [address] Performed By: #### 5 8410-2 ####[facility] LABIA [id number] [address] OF [facility] Hematocrit (Bld) [Volume fraction] 38.2 % Low 39.0-51.0 [facility] Comment on above: Order Comment: Speci men Type: BLOOD SPECIMENOrdering Facility: [facility] Address: [address] [place] [address] Performed By: #### 5 8410-2 ####[facility] LABIA [id number] [address] OF [facility] Hemoglobin (Bld) [Mass/Vol] 11.6 g/dL Low 13.0-17.0 [facility] Comment on above: Order Comment: Speci men Type: BLOOD SPECIMENOrdering Facility: [facility] Address: [address] [place] [address] Performed By: #### 5 8410-2 ####[facility] LABIA [id number] [place] [address] [place] MCH (RBC) [Entitic mass] 24.0 pg Low 26.0-34.0 [facility] Comment on above: Order Comment: Speci men Type: BLOOD SPECIMENOrdering Facility: [facility] Address: [address] [place] [address] Performed By: #### 5 8410-2 ####[facility] LABIA [id number] [address] [place] MCHC (RBC) [Mass/Vol] 30.4 g/dL Low 30.5-36.0 [facility] Comment on above: Order Comment: Speci men Type: BLOOD SPECIMENOrdering Facility: [facility] Address: [address] Performed By: #### 5 8410-2 ####[facility] LABIA [id number] [place] [address] [place] MCV (RBC) [Entitic vol] 79.1 fL Low 80.0-100.0 [facility] Comment on above: Order Comment: Speci men Type: BLOOD SPECIMENOrdering Facility: [facility] Address: [address] Performed By: #### 5 8410-2 ####[facility] [id number] [place] [address] [place] Nucleated RBC (Bld) [#/Vol] 10*3/uL Normal <0.01 [facility] Comment on above: Order Comment: Speci men Type: BLOOD SPECIMENOrdering Facility: [facility] Address: [address] [place], [place] [address] Performed By: #### 5 8410-2 ####[facility] [id number] [place] [address] [place] Platelet mean volume (Bld) [Entitic vol] 9.8 fL Normal 9.0-12.7 [facility] Comment on above: Order Comment: Speci men Type: BLOOD SPECIMENOrdering Facility: [facility] Address: [address] [place] [address] Performed By: #### 5 8410-2 ####[facility] LABIA [id number] [place] [address] [place] Platelets (Bld) [#/Vol] 289 10*3/uL Normal 150-400 [facility] Comment on above: Order Comment: Speci men Type: BLOOD SPECIMENOrdering Facility: [facility] Address: [address] [place], [place] [address] Performed By: #### 5 8410-2 ####[facility] LABIA [id number] [place] [address] [place] RBC (Bld) [#/Vol] 4.83 10*6/uL Normal 4.20-6.00 [facility] Comment on above: Order Comment: Speci men Type: BLOOD SPECIMENOrdering Facility: [facility] Address: [address] [place] [place] [address] Performed By: #### 5 8410-2 ####[facility] [id number] [address] [place] WBC (Bld) [#/Vol] 7.66 10*3/uL Normal 3.70-11.00 [facility] Comment on above: Order Comment: Speci men Type: BLOOD SPECIMENOrdering Facility: [facility] Address: [address] [place] [address] Performed By: #### 5 8410-2 ####[facility] LABIA [id number] [place] [address] [place] CONSULT PROGon 04-12-2023 CONSULT PROG Normal [facility] Comprehensive metabolic 2000 panelon 04-12-2023 Albumin [Mass/Vol] 3.9 g/dL Normal 3.9-4.9 [facility] Comment on above: Order Comment: Speci men Type: BLOOD SPECIMENOrdering Facility: [facility] Address: [address] [place] [address] Performed By: #### 2 4323-8, 33496-6 ####[facility] [id number] [place] [address] [place] ALP [Catalytic activity/Vol] 187 U/L High 38-113 [facility] Comment on above: Order Comment: Speci men Type: BLOOD SPECIMENOrdering Facility: [facility] Address: [address] [place] [address] Performed By: #### 2 4323-8, ####[facility] LABCLIA [id number] [place] [address] [place] ALT [Catalytic activity/Vol] 52 U/L Normal 10-54 [facility] Comment on above: Order Comment: Speci men Type: BLOOD SPECIMENOrdering Facility: [facility] Address: [address] Performed By: #### 2 432-8, ####[facility] LABCLIA [id number] [place] [address] [place] Anion gap [Moles/Vol] 16 mmol/L Normal 9-18 [facility] Comment on above: Order Comment: Speci men Type: BLOOD SPECIMENOrdering Facility: [facility] Address: [address] [place] [address] Performed By: #### 2 8, ####[facility] LABCLIA [id number] [place] [address] [place] AST [Catalytic activity/Vol] 55 U/L High 14-40 [facility] Comment on above: Order Comment: Speci men Type: BLOOD SPECIMENOrdering Facility: [facility] Address: [address] Performed By: #### 2 8, ####[facility] LABCLIA [id number] [place] [address] [place] Bilirubin [Mass/Vol] 1.1 mg/dL Normal 0.2-1.3 [facility] Comment on above: Order Comment: Speci men Type: BLOOD SPECIMENOrdering Facility: [facility] Address: [address] Performed By: #### 2 4323-8, ####[facility] LABCLIA [id number] [place] [address] [place] Calcium [Mass/Vol] 9.6 mg/dL Normal 8.5-10.2 [facility] Comment on above: Order Comment: Speci men Type: BLOOD SPECIMENOrdering Facility: [facility] Address: [address] [place] [address] Performed By: #### 2 4323-8, ####[facility] LABCLIA [id number] [place] [address] [place] Chloride [Moles/Vol] 92 mmol/L Low 97-105 [facility] Comment on above: Order Comment: Speci men Type: BLOOD SPECIMENOrdering Facility: [facility] Address: [address] [place] [address] Performed By: #### 2 4328, ####[facility] LABCLIA [id number] [place] [address] [place] CO2 [Moles/Vol] 24 mmol/L Normal 22-30 [facility] Comment on above: Order Comment: Speci men Type: BLOOD SPECIMENOrdering Facility: [facility] Address: [address] [place] [address] Performed By: #### 2 4328, ####[facility] LABCLIA [id number] [place] [address] [place] Creatinine [Mass/Vol] 2.42 mg/dL High 0.73-1.22 [facility] Comment on above: Order Comment: Speci men Type: BLOOD SPECIMENOrdering Facility: [facility] Address: [address] [place], [place] [address] Performed By: #### 2 432-8, ####[facility] LABCLIA [id number] [place] [address] [place] Creatinine and Glomerular filtration rate.predicted panel (S/P/Bld) 29 mL/min/1.73m??? Low >=60 [facility] Comment on above: Order Comment: Joseline clemons Type: BLOOD SPECIMENOrdering Facility: [facility] Address: [address] [place] [address] Result Comment: Syl mated Glomerular Filtration Rate [...] actual GFR. Performed By: #### 2 4323-8, 15609-7 ####[facility] LABIA [id number] [place] [address] [place] Glucose [Mass/Vol] 139 mg/dL High 74-99 [facility] Comment on above: Order Comment: Joseline clemons Type: BLOOD SPECIMENOrdering Facility: [facility] Address: [address] [place], [place] [address] Result Comment: The [place] [employer] (ADA) provides guidance for cutoff [...] Standards of Medical Care in Diabetes 2016, [place] [employer]. Diabetes Care. 2016.39(Suppl 1). Performed By: #### 2 4323-8, 76268-6 ####[facility] LABIA [id number] [place] [address] [place] Potassium [Moles/Vol] 5.0 mmol/L Normal 3.7-5.1 [facility] Comment on above: Order Comment: Speci men Type: BLOOD SPECIMENOrdering Facility: [facility] Address: [address] Performed By: #### 2 432-8, ####[facility] LABCLIA [id number] [place] [address] [place] Protein [Mass/Vol] 7.1 g/dL Normal 6.3-8.0 [facility] Comment on above: Order Comment: Speci men Type: BLOOD SPECIMENOrdering Facility: [facility] Address: [address] [place] [address] Performed By: #### 2 8, ####[facility] LABCLIA [id number] [place] [address] [place] Sodium [Moles/Vol] 132 mmol/L Low 136-144 [facility] Comment on above: Order Comment: Speci men Type: BLOOD SPECIMENOrdering Facility: [facility] Address: [address] [place] [address] Performed By: #### 2 8, ####[facility] LABIA [id number] [place] [address] [place] Urea nitrogen [Mass/Vol] 65 mg/dL High 9-24 [facility] Comment on above: Order Comment: Speci men Type: BLOOD SPECIMENOrdering Facility: [facility] Address: [address] [place], [place] [address] Performed By: #### 2 4323-8, ####[facility] LABIA [id number] [place] [address] [place] Magnesium SerPl-mCncon 04-12 Magnesium [Mass/Vol] 2.9 mg/dL High 1.7-2.3 [facility] Comment on above: Order Comment: Speci men Type: BLOOD SPECIMENOrdering Facility: [facility] Address: [address] [place] [address] Performed By: #### 2 4323-8, 71358-2 ####[facility] LABIA [id number] [place] [address] [place] NURSING PROGon 04-12-2023 NURSING PROG Normal [facility] CASE MANAGEMon 04-11-2023 CASE MANAGEM Normal [facility] CBC panel Auto (Bld)on 04-11 Erythrocyte distribution width (RBC) [Ratio] 19.9 % High 11.5-15.0 [facility] Comment on above: Order Comment: Speci men Type: BLOOD SPECIMENOrdering Facility: [facility] Address: [address] [place] [address] Performed By: #### 5 8410-2 ####[facility] LABIA [id number] [place] [address] [place] Hematocrit (Bld) [Volume fraction] 37.9 % Low 39.0-51.0 [facility] Comment on above: Order Comment: Speci men Type: BLOOD SPECIMENOrdering Facility: [facility] Address: [address] [place] [address] Performed By: #### 5 8410-2 ####[facility] LABIA [id number] [place] [address] [place] Hemoglobin (Bld) [Mass/Vol] 11.5 g/dL Low 13.0-17.0 [facility] Comment on above: Order Comment: Speci men Type: BLOOD SPECIMENOrdering Facility: [facility] Address: [address] [place], [place] [address] Performed By: #### 5 8410-2 ####[facility] LABIA [id number] [place] [address] [place] MCH (RBC) [Entitic mass] 23.9 pg Low 26.0-34.0 [facility] Comment on above: Order Comment: Speci men Type: BLOOD SPECIMENOrdering Facility: [facility] Address: [address] Performed By: #### 5 8410-2 ####[facility] [id number] [place] [address] [place] MCHC (RBC) [Mass/Vol] 30.3 g/dL Low 30.5-36.0 [facility] Comment on above: Order Comment: Speci men Type: BLOOD SPECIMENOrdering Facility: [facility] Address: [address] [place] [address] Performed By: #### 5 8410-2 ####[facility] [id number] [place] [address] [place] MCV (RBC) [Entitic vol] 78.8 fL Low 80.0-100.0 [facility] Comment on above: Order Comment: Speci men Type: BLOOD SPECIMENOrdering Facility: [facility] Address: [address] Performed By: #### 5 8410-2 ####[facility] [id number] [place] [address] [place] Nucleated RBC (Bld) [#/Vol] 10*3/uL Normal <0.01 [facility] Comment on above: Order Comment: Speci men Type: BLOOD SPECIMENOrdering Facility: [facility] Address: [address] [place], [place] [address] Performed By: #### 5 8410-2 ####[facility] [id number] [place] [address] [place] Platelet mean volume (Bld) [Entitic vol] 10.1 fL Normal 9.0-12.7 [facility] Comment on above: Order Comment: Speci men Type: BLOOD SPECIMENOrdering Facility: [facility] Address: [address] [place], [place] [address] Performed By: #### 5 8410-2 ####[facility] LABCLIA [id number] [place] [address] [place] Platelets (Bld) [#/Vol] 320 10*3/uL Normal 150-400 [facility] Comment on above: Order Comment: Speci men Type: BLOOD SPECIMENOrdering Facility: [facility] Address: [address] [place] [address] Performed By: #### 5 8410-2 ####[facility] LABCLIA [id number] [place] [address] [place] RBC (Bld) [#/Vol] 4.81 10*6/uL Normal 4.20-6.00 [facility] Comment on above: Order Comment: Speci men Type: BLOOD SPECIMENOrdering Facility: [facility] Address: [address] [place] [address] Performed By: #### 5 8410-2 ####[facility] LABCLIA [id number] [place] [address] [place] WBC (Bld) [#/Vol] 7.97 10*3/uL Normal 3.70-11.00 [facility] Comment on above: Order Comment: Speci men Type: BLOOD SPECIMENOrdering Facility: [facility] Address: [address] [place] [address] Performed By: #### 5 8410-2 ####[facility] LABIA [id number] [place] [address] [place] Comprehensive metabolic 2000 panelon 04-11-2023 Albumin [Mass/Vol] 3.7 g/dL Low 3.9-4.9 [facility] Comment on above: Order Comment: Speci men Type: BLOOD SPECIMENOrdering Facility: [facility] Address: [address] [place] [address] Performed By: #### 1 9123-9, 69292-5 ####[facility] LABCLIA [id number] [place] [address] [place] ALP [Catalytic activity/Vol] 173 U/L High 38-113 [facility] Comment on above: Order Comment: Speci men Type: BLOOD SPECIMENOrdering Facility: [facility] Address: [address] [place] [address] Performed By: #### 1 9123-9, 72559-8 ####[facility] LABCLIA [id number] [place] [address] [place] ALT [Catalytic activity/Vol] 36 U/L Normal 10-54 [facility] Comment on above: Order Comment: Speci men Type: BLOOD SPECIMENOrdering Facility: [facility] Address: [address] [place] [address] Performed By: #### 1 9123-9, 63011-5 ####[facility] LABCLIA [id number] [place] [address] [place] Anion gap [Moles/Vol] 13 mmol/L Normal 9-18 [facility] Comment on above: Order Comment: Speci men Type: BLOOD SPECIMENOrdering Facility: [facility] Address: [address] [place], [place] [address] Performed By: #### 1 9123-9, 18046-2 ####[facility] LABCLIA [id number] [place] [address] [place] AST [Catalytic activity/Vol] 36 U/L Normal 14-40 [facility] Comment on above: Order Comment: Speci men Type: BLOOD SPECIMENOrdering Facility: [facility] Address: [address] [place], [place] [address] Performed By: #### 1 9123-9, 79839-7 ####[facility] LABCLIA [id number] [place] [address] [place] Bilirubin [Mass/Vol] 1.0 mg/dL Normal 0.2-1.3 [facility] Comment on above: Order Comment: Speci men Type: BLOOD SPECIMENOrdering Facility: [facility] Address: [address] Performed By: #### 1 23-9, ####[facility] LABCLIA [id number] [place] [address] [place] Calcium [Mass/Vol] 9.4 mg/dL Normal 8.5-10.2 [facility] Comment on above: Order Comment: Speci men Type: BLOOD SPECIMENOrdering Facility: [facility] Address: [address] Performed By: #### 1 9123-9, ####[facility] LABCLIA [id number] [place] [address] [place] Chloride [Moles/Vol] 90 mmol/L Low 97-105 [facility] Comment on above: Order Comment: Speci men Type: BLOOD SPECIMENOrdering Facility: [facility] Address: [address] Performed By: #### 1 239, ####[facility] LABCLIA [id number] [place] [address] [place] CO2 [Moles/Vol] 27 mmol/L Normal 22-30 [facility] Comment on above: Order Comment: Speci men Type: BLOOD SPECIMENOrdering Facility: [facility] Address: [address] Performed By: #### 1 9123-9, ####[facility] LABCLIA [id number] [place] [address] [place] Creatinine [Mass/Vol] 2.27 mg/dL High 0.73-1.22 [facility] Comment on above: Order Comment: Speci men Type: BLOOD SPECIMENOrdering Facility: [facility] Address: [address] [place] [id number] Performed By: #### 1 9123-9, 85908-0 ####[facility] LABIA [id number] [place] [address] [place] Creatinine and Glomerular filtration rate.predicted panel (S/P/Bld) 31 mL/min/1.73m??? Low >=60 [facility] Comment on above: Order Comment: Joseline clemons Type: BLOOD SPECIMENOrdering Facility: [facility] Address: [address] [place] [address] Result Comment: Syl mated Glomerular Filtration Rate [...] actual GFR. Performed By: #### 1 9123-9, 30868-1 ####[facility] LABIA [id number] [place] [address] [place] Glucose [Mass/Vol] 152 mg/dL High 74-99 [facility] Comment on above: Order Comment: Joseline clemons Type: BLOOD SPECIMENOrdering Facility: [facility] Address: [address] [place] [address] Result Comment: The [place] [employer] (ADA) provides guidance for cutoff [...] Standards of Medical Care in Diabetes 2016, [place] [employer]. Diabetes Care. 2016.39(Suppl 1). Performed By: #### 1 9, ####[facility] LABCLIA [id number] [place] [address] [place] Potassium [Moles/Vol] 4.7 mmol/L Normal 3.7-5.1 [facility] Comment on above: Order Comment: Speci men Type: BLOOD SPECIMENOrdering Facility: [facility] Address: [address] Performed By: #### 1 9123-04, ####[facility] LABIA [id number] [place] [address] [place] Protein [Mass/Vol] 6.8 g/dL Normal 6.3-8.0 [facility] Comment on above: Order Comment: Speci men Type: BLOOD SPECIMENOrdering Facility: [facility] Address: [address] [place], [place] [address] Performed By: #### 1 9123-04, ####[facility] LABIA [id number] [place] [address] [place] Sodium [Moles/Vol] 130 mmol/L Low 136-144 [facility] Comment on above: Order Comment: Speci men Type: BLOOD SPECIMENOrdering Facility: [facility] Address: [address] Performed By: #### 1 9123-04, ####[facility] LABIA [id number] [place] [address] [place] Urea nitrogen [Mass/Vol] 61 mg/dL High 9-24 [facility] Comment on above: Order Comment: Speci men Type: BLOOD SPECIMENOrdering Facility: [facility] Address: [address] Performed By: #### 1 239, ####[facility] LABIA [id number] [place] Magnesium SerPl-mCncon 04-11 Magnesium [Mass/Vol] 2.7 mg/dL High 1.7-2.3 [facility] Comment on above: Order Comment: Speci men Type: BLOOD SPECIMENOrdering Facility: [facility] Address: [address] [place] [address] Performed By: #### 1 9123-9, 56834-1 ####[facility] LABCLIA [id number] [place] [address] [place] CBC panel Auto (Bld)on 04-10 Erythrocyte distribution width (RBC) [Ratio] 19.6 % High 11.5-15.0 [facility] Comment on above: Order Comment: Speci men Type: BLOOD SPECIMENOrdering Facility: [facility] Address: [address] [place] [address] Performed By: #### 5 8410-2 ####[facility] LABIA [id number] [address] [place] Hematocrit (Bld) [Volume fraction] 35.1 % Low 39.0-51.0 [facility] Comment on above: Order Comment: Speci men Type: BLOOD SPECIMENOrdering Facility: [facility] Address: [address] [place] [address] Performed By: #### 5 8410-2 ####[facility] LABCLIA [id number] [address] [place] Hemoglobin (Bld) [Mass/Vol] 11.1 g/dL Low 13.0-17.0 [facility] Comment on above: Order Comment: Speci men Type: BLOOD SPECIMENOrdering Facility: [facility] Address: [address] [place] [address] Performed By: #### 5 8410-2 ####[facility] LABIA [id number] [place] [address] [place] MCH (RBC) [Entitic mass] 24.6 pg Low 26.0-34.0 [facility] Comment on above: Order Comment: Speci men Type: BLOOD SPECIMENOrdering Facility: [facility] Address: [address] [place] [address] Performed By: #### 5 8410-2 ####[facility] LABCLIA [id number] [address] [place] MCHC (RBC) [Mass/Vol] 31.6 g/dL Normal 30.5-36.0 [facility] Comment on above: Order Comment: Speci men Type: BLOOD SPECIMENOrdering Facility: [facility] Address: [address] [place] [address] Performed By: #### 5 8410-2 ####[facility] LABCLIA [id number] [address] [place] MCV (RBC) [Entitic vol] 77.7 fL Low 80.0-100.0 [facility] Comment on above: Order Comment: Speci men Type: BLOOD SPECIMENOrdering Facility: [facility] Address: [address] [place], [place] [address] Performed By: #### 5 8410-2 ####[facility] LABCLIA [id number] [address] [place] Nucleated RBC (Bld) [#/Vol] 10*3/uL Normal <0.01 [facility] Comment on above: Order Comment: Speci men Type: BLOOD SPECIMENOrdering Facility: [facility] Address: [address] [place], [place] [address] Performed By: #### 5 8410-2 ####[facility] LABCLIA [id number] [address] [place] Platelet mean volume (Bld) [Entitic vol] 10.6 fL Normal 9.0-12.7 [facility] Comment on above: Order Comment: Speci men Type: BLOOD SPECIMENOrdering Facility: [facility] Address: [address] [address] Performed By: #### 5 8410-2 ####[facility] LABIA [id number] [place] [address] [place] Platelets (Bld) [#/Vol] 311 10*3/uL Normal 150-400 [facility] Comment on above: Order Comment: Speci men Type: BLOOD SPECIMENOrdering Facility: [facility] Address: [address] [place] [address] Performed By: #### 5 8410-2 ####[facility] LABIA [id number] [address] STATES OF [facility] RBC (Bld) [#/Vol] 4.52 10*6/uL Normal 4.20-6.00 [facility] Comment on above: Order Comment: Speci men Type: BLOOD SPECIMENOrdering Facility: [facility] Address: [address] [place] [address] Performed By: #### 5 8410-2 ####[facility] LABIA [id number] [address] OF [facility] WBC (Bld) [#/Vol] 7.69 10*3/uL Normal 3.70-11.00 [facility] Comment on above: Order Comment: Speci men Type: BLOOD SPECIMENOrdering Facility: [facility] Address: [address] [place], [place] [address] Performed By: #### 5 8410-2 ####[facility] LABIA [id number] [place] [address] [place] Comprehensive metabolic 2000 panelon 04-10-2023 Albumin [Mass/Vol] 3.2 g/dL Low 3.9-4.9 [facility] Comment on above: Order Comment: Speci men Type: BLOOD SPECIMENOrdering Facility: [facility] Address: [address] [address] Performed By: #### 2 4323-8, 05554-1, 06473-4 ####[facility] LABCLIA [id number] [place] [address] [place] ALP [Catalytic activity/Vol] 164 U/L High 38-113 [facility] Comment on above: Order Comment: Speci men Type: BLOOD SPECIMENOrdering Facility: [facility] Address: [address] [address] Performed By: #### 2 4323-8, 51028-2, 71051-9 ####[facility] LABCLIA [id number] [place] [address] [place] ALT [Catalytic activity/Vol] 34 U/L Normal 10-54 [facility] Comment on above: Order Comment: Speci men Type: BLOOD SPECIMENOrdering Facility: [facility] Address: [address] [address] Performed By: #### 2 4323-8, 61880-4, 77027-0 ####[facility] LABCLIA [id number] [place] [address] [place] Anion gap [Moles/Vol] 13 mmol/L Normal 9-18 [facility] Comment on above: Order Comment: Speci men Type: BLOOD SPECIMENOrdering Facility: [facility] Address: [address] Performed By: #### 2 4323-8, 96627-3, 11250-2 ####[facility] LABCLIA [id number] [place] [address] [place] AST [Catalytic activity/Vol] 30 U/L Normal 14-40 [facility] Comment on above: Order Comment: Speci men Type: BLOOD SPECIMENOrdering Facility: [facility] Address: [address] [address] Performed By: #### 2 4323-8, , 60205-9 ####[facility] LABCLIA [id number] [place] [address] [place] Bilirubin [Mass/Vol] 0.9 mg/dL Normal 0.2-1.3 [facility] Comment on above: Order Comment: Speci men Type: BLOOD SPECIMENOrdering Facility: [facility] Address: [address] [place], [place] [address] Performed By: #### 2 4323-8, , 15812-0 ####[facility] LABCLIA [id number] [place] [address] [place] Calcium [Mass/Vol] 9.2 mg/dL Normal 8.5-10.2 [facility] Comment on above: Order Comment: Speci men Type: BLOOD SPECIMENOrdering Facility: [facility] Address: [address] [place] [address] Performed By: #### 2 4323-8, , 28419-2 ####[facility] LABCLIA [id number] [place] [address] [place] Chloride [Moles/Vol] 90 mmol/L Low 97-105 [facility] Comment on above: Order Comment: Speci men Type: BLOOD SPECIMENOrdering Facility: [facility] Address: [address] [place], [place] [address] Performed By: #### 2 4323-8, , 45242-7 ####[facility] LABCLIA [id number] [place] [address] [place] CO2 [Moles/Vol] 25 mmol/L Normal 22-30 [facility] Comment on above: Order Comment: Speci men Type: BLOOD SPECIMENOrdering Facility: [facility] Address: [address] Performed By: #### 2 4323-8, , 24108-5 ####[facility] LABCLIA [id number] [place] [address] [place] Creatinine [Mass/Vol] 2.40 mg/dL High 0.73-1.22 [facility] Comment on above: Order Comment: Joseline clemons Type: BLOOD SPECIMENOrdering Facility: [facility] Address: [address] [address] Performed By: #### 2 4323-8, 54409-8, 97956-2 ####[facility] LABIA [id number] [address] [place] Creatinine and Glomerular filtration rate.predicted panel (S/P/Bld) 29 mL/min/1.73m??? Low >=60 [facility] Comment on above: Order Comment: Joseline clemons Type: BLOOD SPECIMENOrdering Facility: [facility] Address: [address] [place] [address] Result Comment: Syl mated Glomerular Filtration Rate [...] actual GFR. Performed By: #### 2 4323-8, 99818-5, 60917-5 ####[facility] LABIA [id number] [place] [id number] [place] Glucose [Mass/Vol] 145 mg/dL High 74-99 [facility] Comment on above: Order Comment: Speci kaci Type: BLOOD SPECIMENOrdering Facility: [facility] Address: [address] [address] Result Comment: The [place] [employer] (ADA) provides guidance for cutoff [...] Standards of Medical Care in Diabetes 2016, [place] [employer]. Diabetes Care. 2016.39(Suppl 1). Performed By: #### 2 4323-8, 64785-1, 15306-6 ####[facility] LABCLIA [id number] [place] [address] [place] Potassium [Moles/Vol] 5.0 mmol/L Normal 3.7-5.1 [facility] Comment on above: Order Comment: Speci men Type: BLOOD SPECIMENOrdering Facility: [facility] Address: [address] [place] [address] Performed By: #### 2 4323-8, , 40470-5 ####[facility] LABIA [id number] [place] [address] [place] Protein [Mass/Vol] 6.3 g/dL Normal 6.3-8.0 [facility] Comment on above: Order Comment: Speci men Type: BLOOD SPECIMENOrdering Facility: [facility] Address: [address] [place] [address] Performed By: #### 2 4323-8, , 17345-8 ####[facility] LABIA [id number] [place] [address] [place] Sodium [Moles/Vol] 128 mmol/L Low 136-144 [facility] Comment on above: Order Comment: Speci men Type: BLOOD SPECIMENOrdering Facility: [facility] Address: [address] [address] Performed By: #### 2 4323-8, , 22020-8 ####[facility] LABCLIA [id number] [place] [address] [place] Urea nitrogen [Mass/Vol] 62 mg/dL High 9-24 [facility] Comment on above: Order Comment: Speci men Type: BLOOD SPECIMENOrdering Facility: [facility] Address: [address] [place] [address] Performed By: #### 2 4323-8, 28072-6, 05316-9 ####[facility] LABIA [id number] [place] [address] [place] [facility] Magnesium [Mass/Vol] 2.8 mg/dL High 1.7-2.3 [facility] Comment on above: Order Comment: Speci men Type: BLOOD SPECIMENOrdering Facility: [facility] Address: [address] [place] [address] Performed By: #### 2 4323-8, 77256-3, 66354-4 ####[facility] LABIA [id number] [address] [place] NT-proBNP SerPl-mCncon 04-10 Natriuretic peptide.B prohormone N-Terminal [Mass/Vol] 5066 pg/mL High <125 [facility] Comment on above: Order Comment: Speci men Type: BLOOD SPECIMENOrdering Facility: [facility] Address: [address] [place] [address] Performed By: #### 2 4323-8, 15644-1, 30105-8 ####[facility] LABIA [id number] [place] [address] [place] CBC panel Auto (Bld)on 04-09 Erythrocyte distribution width (RBC) [Ratio] 19.9 % High 11.5-15.0 [facility] Comment on above: Order Comment: Speci men Type: BLOOD SPECIMENOrdering Facility: [facility] Address: [address] [place] [address] Performed By: #### 5 8410-2 ####[facility] LABIA [id number] [place] [address] [place] Hematocrit (Bld) [Volume fraction] 35.6 % Low 39.0-51.0 [facility] Comment on above: Order Comment: Speci men Type: BLOOD SPECIMENOrdering Facility: [facility] Address: [address] [place] [address] Performed By: #### 5 8410-2 ####[facility] LABIA [id number] [address] [place] Hemoglobin (Bld) [Mass/Vol] 11.2 g/dL Low 13.0-17.0 [facility] Comment on above: Order Comment: Speci men Type: BLOOD SPECIMENOrdering Facility: [facility] Address: [address] [place] [address] Performed By: #### 5 8410-2 ####[facility] LABIA [id number] [address] [place] MCH (RBC) [Entitic mass] 24.6 pg Low 26.0-34.0 [facility] Comment on above: Order Comment: Speci men Type: BLOOD SPECIMENOrdering Facility: [facility] Address: [address] [place] [address] Performed By: #### 5 8410-2 ####[facility] [id number] [address] [place] MCHC (RBC) [Mass/Vol] 31.5 g/dL Normal 30.5-36.0 [facility] Comment on above: Order Comment: Speci men Type: BLOOD SPECIMENOrdering Facility: [facility] Address: [address] [place] [address] Performed By: #### 5 8410-2 ####[facility] [id number] [address] [place] MCV (RBC) [Entitic vol] 78.1 fL Low 80.0-100.0 [facility] Comment on above: Order Comment: Speci men Type: BLOOD SPECIMENOrdering Facility: [facility] Address: [address] [place] [address] Performed By: #### 5 8410-2 ####[facility] LABCLIA [id number] [place] [address] [place] Nucleated RBC (Bld) [#/Vol] 10*3/uL Normal <0.01 [facility] Comment on above: Order Comment: Speci men Type: BLOOD SPECIMENOrdering Facility: [facility] Address: [address] [place], [place] [address] Performed By: #### 5 8410-2 ####[facility] LABIA [id number] [place] [address] [place] Platelet mean volume (Bld) [Entitic vol] 10.3 fL Normal 9.0-12.7 [facility] Comment on above: Order Comment: Speci men Type: BLOOD SPECIMENOrdering Facility: [facility] Address: [address] [place], [place] [address] Performed By: #### 5 8410-2 ####[facility] LABCLIA [id number] [place] [address] [place] Platelets (Bld) [#/Vol] 303 10*3/uL Normal 150-400 [facility] Comment on above: Order Comment: Speci men Type: BLOOD SPECIMENOrdering Facility: [facility] Address: [address] [place] [address] Performed By: #### 5 8410-2 ####[facility] LABCLIA [id number] [place] [address] [place] RBC (Bld) [#/Vol] 4.56 10*6/uL Normal 4.20-6.00 [facility] Comment on above: Order Comment: Speci men Type: BLOOD SPECIMENOrdering Facility: [facility] Address: [address] Performed By: #### 5 8410-2 ####[facility] LABIA [id number] [address] [place] WBC (Bld) [#/Vol] 9.41 10*3/uL Normal 3.70-11.00 [facility] Comment on above: Order Comment: Speci men Type: BLOOD SPECIMENOrdering Facility: [facility] Address: [address] [place] [address] Performed By: #### 5 8410-2 ####[facility] LABIA [id number] [place] [address] [place] [facility] Comprehensive metabolic 2000 panelon 04-09-2023 Albumin [Mass/Vol] 3.4 g/dL Low 3.9-4.9 [facility] Comment on above: Order Comment: Speci men Type: BLOOD SPECIMENOrdering Facility: [facility] Address: [address] Performed By: #### 1 9123-9, 61723-3 ####[facility] LABIA [id number] [address] [place] ALP [Catalytic activity/Vol] 170 U/L High 38-113 [facility] Comment on above: Order Comment: Speci men Type: BLOOD SPECIMENOrdering Facility: [facility] Address: [address] Performed By: #### 1 9123-9, 08575-2 ####[facility] LABIA [id number] [address] OF [facility] ALT [Catalytic activity/Vol] 30 U/L Normal 10-54 [facility] Comment on above: Order Comment: Speci men Type: BLOOD SPECIMENOrdering Facility: [facility] Address: [address] Performed By: #### 1 9123-9, 92914-8 ####[facility] LABCLIA [id number] [place] [address] [place] Anion gap [Moles/Vol] 16 mmol/L Normal 9-18 [facility] Comment on above: Order Comment: Speci men Type: BLOOD SPECIMENOrdering Facility: [facility] Address: [address] [place], [place] [address] Performed By: #### 1 23-9, 93811-2 ####[facility] LABCLIA [id number] [place] [address] [place] AST [Catalytic activity/Vol] 30 U/L Normal 14-40 [facility] Comment on above: Order Comment: Speci men Type: BLOOD SPECIMENOrdering Facility: [facility] Address: [address] [place], [place] [address] Performed By: #### 1 239, 86793-2 ####[facility] LABCLIA [id number] [place] [address] [place] Bilirubin [Mass/Vol] 1.0 mg/dL Normal 0.2-1.3 [facility] Comment on above: Order Comment: Speci men Type: BLOOD SPECIMENOrdering Facility: [facility] Address: [address] [place] [address] Performed By: #### 1 23-9, 19656-1 ####[facility] LABCLIA [id number] [place] [address] [place] Calcium [Mass/Vol] 9.6 mg/dL Normal 8.5-10.2 [facility] Comment on above: Order Comment: Speci men Type: BLOOD SPECIMENOrdering Facility: [facility] Address: [address] [place], [place] [address] Performed By: #### 1 9123-9, 85374-1 ####[facility] LABCLIA [id number] [place] [address] [place] Chloride [Moles/Vol] 89 mmol/L Low 97-105 [facility] Comment on above: Order Comment: Speci men Type: BLOOD SPECIMENOrdering Facility: [facility] Address: [address] [place] [address] Performed By: #### 1 9123-9, 49170-1 ####[facility] LABCLIA [id number] [address] OF [facility] CO2 [Moles/Vol] 24 mmol/L Normal 22-30 [facility] Comment on above: Order Comment: Speci men Type: BLOOD SPECIMENOrdering Facility: [facility] Address: [address] [place] [address] Performed By: #### 1 9123-9, 25221-4 ####[facility] LABIA [id number] [address] OF [facility] Creatinine [Mass/Vol] 2.50 mg/dL High 0.73-1.22 [facility] Comment on above: Order Comment: Speci men Type: BLOOD SPECIMENOrdering Facility: [facility] Address: [address] [place] [address] Performed By: #### 1 9123-9, 02355-3 ####[facility] LABIA [id number] [address] Creatinine and Glomerular filtration rate.predicted panel (S/P/Bld) 28 mL/min/1.73m??? Low >=60 [facility] Comment on above: Order Comment: Speci men Type: BLOOD SPECIMENOrdering Facility: [facility] Address: [address] [place] [address] Result Comment: Syl mated Glomerular Filtration Rate [...] actual GFR. Performed By: #### 1 9123-9, ####[facility] LABCLIA [id number] [address] [address] [place] Glucose [Mass/Vol] 154 mg/dL High 74-99 [facility] Comment on above: Order Comment: Joseline clemons Type: BLOOD SPECIMENOrdering Facility: [facility] Address: [address] [place] [address] Result Comment: The [place] [employer] (ADA) provides guidance for cutoff [...] Standards of Medical Care in Diabetes 2016, [place] [employer]. Diabetes Care. 2016.39(Suppl 1). Performed By: #### 1 9123-9, ####[facility] LABIA [id number] [place] [id number] [place] Potassium [Moles/Vol] 4.6 mmol/L Normal 3.7-5.1 [facility] Comment on above: Order Comment: Joseline clemons Type: BLOOD SPECIMENOrdering Facility: [facility] Address: [address] [place] [address] Performed By: #### 1 9123-9, ####[facility] LABIA [id number] [address] [address] [place] Protein [Mass/Vol] 7.0 g/dL Normal 6.3-8.0 [facility] Comment on above: Order Comment: Speci men Type: BLOOD SPECIMENOrdering Facility: [facility] Address: [address] [place], [place] [address] Performed By: #### 1 9123-9, 97696-7 ####[facility] LABIA [id number] [place] [address] [place] Sodium [Moles/Vol] 129 mmol/L Low 136-144 [facility] Comment on above: Order Comment: Speci men Type: BLOOD SPECIMENOrdering Facility: [facility] Address: [address] [place] [address] Performed By: #### 1 9123-9, 49002-1 ####[facility] LABIA [id number] [place] [address] [place] Urea nitrogen [Mass/Vol] 61 mg/dL High 9-24 [facility] Comment on above: Order Comment: Speci men Type: BLOOD SPECIMENOrdering Facility: [facility] Address: [address] [place] [address] Performed By: #### 1 9123-9, 06818-7 ####[facility] LABIA [id number] [place] [address] [place] Magnesium SerPl-mCncon 04-09 Magnesium [Mass/Vol] 2.6 mg/dL High 1.7-2.3 [facility] Comment on above: Order Comment: Speci men Type: BLOOD SPECIMENOrdering Facility: [facility] Address: [address] [place], [place] [address] Performed By: #### 1 9123-9, 95359-7 ####[facility] LABIA [id number] [place] [address] [place] CBC panel Auto (Bld)on 04-08 Erythrocyte distribution width (RBC) [Ratio] 19.9 % High 11.5-15.0 [facility] Comment on above: Order Comment: Speci men Type: BLOOD SPECIMENOrdering Facility: [facility] Address: [address] [place] [address] Performed By: #### 5 8410-2 ####[facility] LABIA [id number] [address] [place] Hematocrit (Bld) [Volume fraction] 34.7 % Low 39.0-51.0 [facility] Comment on above: Order Comment: Speci men Type: BLOOD SPECIMENOrdering Facility: [facility] Address: [address] Performed By: #### 5 8410-2 ####[facility] LABIA [id number] [place] [address] [place] Hemoglobin (Bld) [Mass/Vol] 10.9 g/dL Low 13.0-17.0 [facility] Comment on above: Order Comment: Speci men Type: BLOOD SPECIMENOrdering Facility: [facility] Address: [address] Performed By: #### 5 8410-2 ####[facility] LABIA [id number] [place] [address] [place] MCH (RBC) [Entitic mass] 24.4 pg Low 26.0-34.0 [facility] Comment on above: Order Comment: Speci men Type: BLOOD SPECIMENOrdering Facility: [facility] Address: [address] Performed By: #### 5 8410-2 ####[facility] LABIA [id number] [place] [address] [place] MCHC (RBC) [Mass/Vol] 31.4 g/dL Normal 30.5-36.0 [facility] Comment on above: Order Comment: Speci men Type: BLOOD SPECIMENOrdering Facility: [facility] Address: [address] Performed By: #### 5 8410-2 ####[facility] LABIA [id number] [place] [address] [place] MCV (RBC) [Entitic vol] 77.8 fL Low 80.0-100.0 [facility] Comment on above: Order Comment: Speci men Type: BLOOD SPECIMENOrdering Facility: [facility] Address: [address] [place], [place] [address] Performed By: #### 5 8410-2 ####[facility] LABIA [id number] [place] [address] [place] Nucleated RBC (Bld) [#/Vol] 10*3/uL Normal <0.01 [facility] Comment on above: Order Comment: Speci men Type: BLOOD SPECIMENOrdering Facility: [facility] Address: [address] [place], [place] [address] Performed By: #### 5 8410-2 ####[facility] [id number] [place] [address] [place] Platelet mean volume (Bld) [Entitic vol] 10.0 fL Normal 9.0-12.7 [facility] Comment on above: Order Comment: Speci men Type: BLOOD SPECIMENOrdering Facility: [facility] Address: [address] [place], [place] [address] Performed By: #### 5 8410-2 ####[facility] LABIA [id number] [place] [address] [place] Platelets (Bld) [#/Vol] 294 10*3/uL Normal 150-400 [facility] Comment on above: Order Comment: Speci men Type: BLOOD SPECIMENOrdering Facility: [facility] Address: [address] [place], [place] [address] Performed By: #### 5 8410-2 ####[facility] LABIA [id number] [place] [address] [id number] [address] [place] RBC (Bld) [#/Vol] 4.46 10*6/uL Normal 4.20-6.00 [facility] Comment on above: Order Comment: Speci men Type: BLOOD SPECIMENOrdering Facility: [facility] Address: [address] [place], [place] [address] Performed By: #### 5 8410-2 ####[facility] LABCLIA [id number] [place] [address] [place] WBC (Bld) [#/Vol] 8.80 10*3/uL Normal 3.70-11.00 [facility] Comment on above: Order Comment: Speci men Type: BLOOD SPECIMENOrdering Facility: [facility] Address: [address] [place], [place] [address] Performed By: #### 5 8410-2 ####[facility] LABCLIA [id number] [address] OF [facility] CONSULT PROGon 04-08-2023 CONSULT PROG Normal [facility] Comprehensive metabolic 2000 panelon 04-08-2023 Albumin [Mass/Vol] 3.6 g/dL Low 3.9-4.9 [facility] Comment on above: Order Comment: Speci men Type: BLOOD SPECIMENOrdering Facility: [facility] Address: [address] [place], [place] [address] Performed By: #### 2 4323-8, 39097-3 ####[facility] LABCLIA [id number] [place] [address] [place] ALP [Catalytic activity/Vol] 182 U/L High 38-113 [facility] Comment on above: Order Comment: Speci men Type: BLOOD SPECIMENOrdering Facility: [facility] Address: [address] [place], [place] [address] Performed By: #### 2 4323-8, 97579-6 ####[facility] LABCLIA [id number] [place] [address] [place] ALT [Catalytic activity/Vol] 33 U/L Normal 10-54 [facility] Comment on above: Order Comment: Speci men Type: BLOOD SPECIMENOrdering Facility: [facility] Address: [address] [place], [place] [address] Performed By: #### 2 432-8, ####[facility] LABCLIA [id number] [place] [address] [place] Anion gap [Moles/Vol] 15 mmol/L Normal 9-18 [facility] Comment on above: Order Comment: Speci men Type: BLOOD SPECIMENOrdering Facility: [facility] Address: [address] [place] [address] Performed By: #### 2 8, ####[facility] LABCLIA [id number] [place] [address] [place] AST [Catalytic activity/Vol] 31 U/L Normal 14-40 [facility] Comment on above: Order Comment: Speci men Type: BLOOD SPECIMENOrdering Facility: [facility] Address: [address] [place] [address] Performed By: #### 2 4323-03, ####[facility] LABCLIA [id number] [place] [address] [place] Bilirubin [Mass/Vol] 1.0 mg/dL Normal 0.2-1.3 [facility] Comment on above: Order Comment: Speci men Type: BLOOD SPECIMENOrdering Facility: [facility] Address: [address] [place], [place] [address] Performed By: #### 2 4322-8, ####[facility] LABCLIA [id number] [place] [address] [place] Calcium [Mass/Vol] 9.6 mg/dL Normal 8.5-10.2 [facility] Comment on above: Order Comment: Speci men Type: BLOOD SPECIMENOrdering Facility: [facility] Address: [address] Performed By: #### 2 4323-8, ####[facility] LABCLIA [id number] [place] [address] [place] Chloride [Moles/Vol] 92 mmol/L Low 97-105 [facility] Comment on above: Order Comment: Speci men Type: BLOOD SPECIMENOrdering Facility: [facility] Address: [address] [place] [address] Performed By: #### 2 4323-8, ####[facility] LABCLIA [id number] [place] [address] [place] CO2 [Moles/Vol] 22 mmol/L Normal 22-30 [facility] Comment on above: Order Comment: Speci men Type: BLOOD SPECIMENOrdering Facility: [facility] Address: [address] [place] [address] Performed By: #### 2 4328, ####[facility] LABCLIA [id number] [place] [address] [place] Creatinine [Mass/Vol] 2.44 mg/dL High 0.73-1.22 [facility] Comment on above: Order Comment: Speci men Type: BLOOD SPECIMENOrdering Facility: [facility] Address: [address] [place], [place] [address] Performed By: #### 2 4323-8, ####[facility] LABCLIA [id number] [place] [address] [place] Creatinine and Glomerular filtration rate.predicted panel (S/P/Bld) 29 mL/min/1.73m??? Low >=60 [facility] Comment on above: Order Comment: Speci men Type: BLOOD SPECIMENOrdering Facility: [facility] Address: [address] [place], [place] [address] Result Comment: Syl mated Glomerular Filtration Rate [...] actual GFR. Performed By: #### 2 4323-8, ####[facility] LABCLIA [id number] [place] [address] [place] Glucose [Mass/Vol] 192 mg/dL High 74-99 [facility] Comment on above: Order Comment: Speccate men Type: BLOOD SPECIMENOrdering Facility: [facility] Address: [address] [place] [address] Result Comment: The [place] [employer] (ADA) provides guidance for cutoff [...] Standards of Medical Care in Diabetes 2016, [place] [employer]. Diabetes Care. 2016.39(Suppl 1). Performed By: #### 2 432-8, ####[facility] LABIA [id number] [place] [address] [place] Potassium [Moles/Vol] 4.8 mmol/L Normal 3.7-5.1 [facility] Comment on above: Order Comment: Joseline men Type: BLOOD SPECIMENOrdering Facility: [facility] Address: [address] [place] [id number] Performed By: #### 2 432-8, ####[facility] LABCLIA [id number] [place] [address] [place] Protein [Mass/Vol] 6.8 g/dL Normal 6.3-8.0 [facility] Comment on above: Order Comment: Speci men Type: BLOOD SPECIMENOrdering Facility: [facility] Address: [address] [place] [address] Performed By: #### 2 4323-8, ####[facility] LABCLIA [id number] [place] [address] [place] Sodium [Moles/Vol] 129 mmol/L Low 136-144 [facility] Comment on above: Order Comment: Speci men Type: BLOOD SPECIMENOrdering Facility: [facility] Address: [address] [place] [address] Performed By: #### 2 4323-8, ####[facility] LABCLIA [id number] [place] [address] [place] Urea nitrogen [Mass/Vol] 58 mg/dL High 9-24 [facility] Comment on above: Order Comment: Speci men Type: BLOOD SPECIMENOrdering Facility: [facility] Address: [address] [place] [address] Performed By: #### 2 4323-8, 67361-3 ####[facility] LABCLIA [id number] [place] [address] [place] Magnesium SerPl-mCncon 04-08 Magnesium [Mass/Vol] 2.8 mg/dL High 1.7-2.3 [facility] Comment on above: Order Comment: Speci men Type: BLOOD SPECIMENOrdering Facility: [facility] Address: [address] [place] [address] Performed By: #### 2 4323-8, 97552-6 ####[facility] LABCLIA [id number] [place] [address] PT panel Coag (PPP)on 2022 INR Coag (PPP) [Relative time] 1.2 {INR} Normal 0.9-1.3 [facility] Comment on above: Order Comment: Joseline clemons Type: BLOOD SPECIMENOrdering Facility: [facility] Address: [address] Result Comment: Baylee min K Antagonist (VKA) Therapeutic Range: INR 2 to 3 (Target INR of 2.5)Note: For patients treated with VKA drugs, such as warfarin, the [place] [employer] 2012 Guideline recommends [...] al. Chest 2012, 141:7S-47SNishimura RA, et al. [facility] 2017, 70: 252-289 Performed By: #### 3 4528-0 ####[facility] LABCLIA [id number] [address] [place] PT Coag (PPP) [Time] 11.9 s Normal 9.7-13.[address] [facility] Comment on above: Order Comment: Joseline clemons Type: BLOOD SPECIMENOrdering Facility: [facility] Address: [place] [address] Performed By: #### 3 4528-0 ####[facility] LABCLIA [id number] [place] [id number] [facility] [place] CASE MANAGEMon 04-07-2023 CASE MANAGEM Normal [facility] CBC panel Auto (Bld)on 04-07 Erythrocyte distribution width (RBC) [Ratio] 20.6 % High 11.5-15.0 [facility] Comment on above: Order Comment: Speci men Type: BLOOD SPECIMENOrdering Facility: [facility] Address: [address] [place] [address] Performed By: #### 5 8410-2 ####[facility] LABIA [id number] [place], [place] [address] [place] Hematocrit (Bld) [Volume fraction] 35.8 % Low 39.0-51.0 [facility] Comment on above: Order Comment: Speci men Type: BLOOD SPECIMENOrdering Facility: [facility] Address: [address] [place] [address] Performed By: #### 5 8410-2 ####[facility] LABIA [id number] [place] [address] [place] Hemoglobin (Bld) [Mass/Vol] 10.9 g/dL Low 13.0-17.0 [facility] Comment on above: Order Comment: Speci men Type: BLOOD SPECIMENOrdering Facility: [facility] Address: [address] [place] [address] Performed By: #### 5 8410-2 ####[facility] LABIA [id number] [place] [address] [place] MCH (RBC) [Entitic mass] 24.4 pg Low 26.0-34.0 [facility] Comment on above: Order Comment: Speci men Type: BLOOD SPECIMENOrdering Facility: [facility] Address: [address] [place], [place] [address] Performed By: #### 5 8410-2 ####[facility] LABIA [id number] [place] [address] [place] MCHC (RBC) [Mass/Vol] 30.4 g/dL Low 30.5-36.0 [facility] Comment on above: Order Comment: Speci men Type: BLOOD SPECIMENOrdering Facility: [facility] Address: [address] [place] [address] Performed By: #### 5 8410-2 ####[facility] LABIA [id number] [address] MCV (RBC) [Entitic vol] 80.3 fL Normal 80.0-100.0 [facility] Comment on above: Order Comment: Speci men Type: BLOOD SPECIMENOrdering Facility: [facility] Address: [address] Performed By: #### 5 8410-2 ####[facility] LABIA [id number] [place] [address] [place] Nucleated RBC (Bld) [#/Vol] 10*3/uL Normal <0.01 [facility] Comment on above: Order Comment: Speci men Type: BLOOD SPECIMENOrdering Facility: [facility] Address: [address] Performed By: #### 5 8410-2 ####[facility] [id number] [place] [address] [place] Platelet mean volume (Bld) [Entitic vol] 10.4 fL Normal 9.0-12.7 [facility] Comment on above: Order Comment: Speci men Type: BLOOD SPECIMENOrdering Facility: [facility] Address: [address] [place], [place] Performed By: #### 5 8410-2 ####[facility] LABIA [id number] [place] [address] [place] Platelets (Bld) [#/Vol] 298 10*3/uL Normal 150-400 [facility] Comment on above: Order Comment: Speci men Type: BLOOD SPECIMENOrdering Facility: [facility] Address: [address] [place], [place] Performed By: #### 5 8410-2 ####[facility] LABCLIA [id number] [place] [address] [place] RBC (Bld) [#/Vol] 4.46 10*6/uL Normal 4.20-6.00 [facility] Comment on above: Order Comment: Speci men Type: BLOOD SPECIMENOrdering Facility: [facility] Address: [address] [place] [address] Performed By: #### 5 8410-2 ####[facility] LABCLIA [id number] [place] [address] [place] WBC (Bld) [#/Vol] 8.02 10*3/uL Normal 3.70-11.00 [facility] Comment on above: Order Comment: Speci men Type: BLOOD SPECIMENOrdering Facility: [facility] Address: [address] [place] [address] Performed By: #### 5 8410-2 ####[facility] LABCLIA [id number] [place] [address] [place] CONSULTon 04-07-2023 CONSULT Normal [facility] Comprehensive metabolic 2000 panelon 04-07-2023 Albumin [Mass/Vol] 3.6 g/dL Low 3.9-4.9 [facility] Comment on above: Order Comment: Speci men Type: BLOOD SPECIMENOrdering Facility: [facility] Address: [address] [place], [place] [address] Performed By: #### 2 4323-8, ####[facility] LABCLIA [id number] [place] [address] [place] ALP [Catalytic activity/Vol] 171 U/L High 38-113 [facility] Comment on above: Order Comment: Speci men Type: BLOOD SPECIMENOrdering Facility: [facility] Address: [address] [place], [place] [address] Performed By: #### 2 4323-8, ####[facility] LABCLIA [id number] [place] [address] [place] ALT [Catalytic activity/Vol] 24 U/L Normal 10-54 [facility] Comment on above: Order Comment: Speci men Type: BLOOD SPECIMENOrdering Facility: [facility] Address: [address] [place] [address] Performed By: #### 2 4323-8, ####[facility] LABCLIA [id number] [place] [address] [place] Anion gap [Moles/Vol] 14 mmol/L Normal 9-18 [facility] Comment on above: Order Comment: Speci men Type: BLOOD SPECIMENOrdering Facility: [facility] Address: [address] [place] [address] Performed By: #### 2 4323-8, ####[facility] LABCLIA [id number] [place] [address] [place] AST [Catalytic activity/Vol] 28 U/L Normal 14-40 [facility] Comment on above: Order Comment: Speci men Type: BLOOD SPECIMENOrdering Facility: [facility] Address: [address] [place] [address] Performed By: #### 2 4323-8, ####[facility] LABCLIA [id number] [place] [address] [place] Bilirubin [Mass/Vol] 1.1 mg/dL Normal 0.2-1.3 [facility] Comment on above: Order Comment: Speci men Type: BLOOD SPECIMENOrdering Facility: [facility] Address: [address] [place], [place] [address] Performed By: #### 2 4323-8, ####[facility] LABCLIA [id number] [place] [address] [place] Calcium [Mass/Vol] 9.5 mg/dL Normal 8.5-10.2 [facility] Comment on above: Order Comment: Speci men Type: BLOOD SPECIMENOrdering Facility: [facility] Address: [address] Performed By: #### 2 432-8, ####[facility] LABCLIA [id number] [facility] [place] [address] [place] Chloride [Moles/Vol] 92 mmol/L Low 97-105 [facility] Comment on above: Order Comment: Speci men Type: BLOOD SPECIMENOrdering Facility: [facility] Address: [address] [place], [place] [address] Performed By: #### 2 8, ####[facility] LABCLIA [id number] [place] [address] [place] CO2 [Moles/Vol] 22 mmol/L Normal 22-30 [facility] Comment on above: Order Comment: Speci men Type: BLOOD SPECIMENOrdering Facility: [facility] Address: [address] Performed By: #### 2 8, ####[facility] LABCLIA [id number] [place] [address] [place] Creatinine [Mass/Vol] 2.30 mg/dL High 0.73-1.22 [facility] Comment on above: Order Comment: Speci men Type: BLOOD SPECIMENOrdering Facility: [facility] Address: [address] Performed By: #### 2 432-8, ####[facility] LABCLIA [id number] [address] [place] Creatinine and Glomerular filtration rate.predicted panel (S/P/Bld) 31 mL/min/1.73m??? Low >=60 [facility] Comment on above: Order Comment: Speci men Type: BLOOD SPECIMENOrdering Facility: [facility] Address: [address] [id number] Result Comment: Syl mated Glomerular Filtration Rate [...] actual GFR. Performed By: #### 2 4323-8, ####[facility] LABIA [id number] [place] [address] [place] Glucose [Mass/Vol] 203 mg/dL High 74-99 [facility] Comment on above: Order Comment: Joseline clemons Type: BLOOD SPECIMENOrdering Facility: [facility] Address: [address] Result Comment: The [place] [employer] (ADA) provides guidance for cutoff [...] Standards of Medical Care in Diabetes 2016, [place] [employer]. Diabetes Care. 2016.39(Suppl 1). Performed By: #### 2 4323-8, ####[facility] LABIA [id number] [place] [address] [place] Potassium [Moles/Vol] 5.1 mmol/L Normal 3.7-5.1 [facility] Comment on above: Order Comment: Joseline clemons Type: BLOOD SPECIMENOrdering Facility: [facility] Address: [address] [id number] Performed By: #### 2 4323-8, ####[facility] LABCLIA [id number] [place] [address] [place] Protein [Mass/Vol] 7.2 g/dL Normal 6.3-8.0 [facility] Comment on above: Order Comment: Speci men Type: BLOOD SPECIMENOrdering Facility: [facility] Address: [address] Performed By: #### 2 4323-8, ####[facility] LABIA [id number] [place] [address] [place] Sodium [Moles/Vol] 128 mmol/L Low 136-144 [facility] Comment on above: Order Comment: Speci men Type: BLOOD SPECIMENOrdering Facility: [facility] Address: [address] Performed By: #### 2 4323-8, ####[facility] LABIA [id number] [place] [address] [place] Urea nitrogen [Mass/Vol] 56 mg/dL High 9-24 [facility] Comment on above: Order Comment: Speci men Type: BLOOD SPECIMENOrdering Facility: [facility] Address: [address] [facility] Performed By: #### 2 4323-8, ####[facility] LABIA [id number] [place] [address] [place] ICD CLINIC CHECKon 3 AV Delay Adaptive Paced Minimum (ms) 140 ms [facility] AV Delay Adaptive Sensed Minimum (ms) 100 ms [facility] Federico LV Pacing Amplitude (volts) 3.5 V [facility] Federico LV Pacing Pulse Width (ms) 0.5 ms [facility] federico LV Sensing Amplitude (mvolts) 1.0 mV [facility] Federico RA Pacing Amplitude (volts) 5.0 V [facility]ico RA Pacing Polarity BI [facility]ico RA Pacing Pulse Width (ms) 0.4 ms [facility] Federico RA Sensing Amplitude (mvolts) 0.25 mV [facility] Federico RA Sensing Polarity BI [facility] Fed[place]ico RV Pacing Amplitude (volts) 2.0 V [facility] Federico RV Pacing Polarity BI [facility] Federico RV Pacing Pulse Width (ms) 0.4 ms [facility] Federico RV Sensing Amplitude (mvolts) 0.3 mV [facility] Federico RV Sensing Polarity BI [facility] Detection Configuration (Vent) 2 - Zone [facility] FastVT_Detection Interval 300 ms [facility] FastVT_Therapy Configuration 1 ATP(s) + 8 Shock(s) [facility] ICD FastVT DetectionStatus ENABLED [facility] ICD-AMS EPISODES 170 {beats}/min [facility] ICD-ATP Episodes (Vent) 0 [facility] ICD-ATRIALFIBRILLATIO N 0 [facility] ICD-Device Mfg BSX [facility] ICD-LEADIMPEDANCEATRI AL 751 ohm [facility] ICD-Percent Pacing (Atrial) 2 % [facility] ICD-Percent Pacing (Vent) 4 % [facility] ICD-Rhythm Sinus Rhythm with frequent PVCs/bigeminy [facility] ICD-Shocks Aborted (Vent) 0 [facility] [id number] 0 [facility] ICD-SHOCKSABORTED 0 [facility] ICD-SHOCKSDELIVEREDVE NTRICULAR 0 [facility] ICD-Ventricular Fibrillation 0 [facility] Implant Date 10/18/2017 [facility] Lead Impedance (LV) 1039 ohm [facility] Lead Impedance (RV) 513 ohm [facility] Lead Impedance High Voltage 78 ohm [facility] Lead1 Mfg BSX [facility] Lead2 Mfg BSX [facility] Lead3 Mfg BSX [facility] Location LV [facility] Location RA [facility] Location RV [facility] Lower Rate (bpm) 60 {beats}/min [facility] LV PACING % 91 % [facility] Max Sensor Rate (bpm) 130 {beats}/min [facility] MDT_PROG_TACHY_ZONE_D ETECTIONS_STATUS ENABLED [facility] Model G247 VIGILANT X4 CURRICULUM AND INSTRUCTION SPECIALIST-D Cl [facility] Model 4671 Acuity X4 Straight C [facility] Model 7841 Ingevity + MRI [facility] Model 0292 [place]otak Relianc e 4-Site SG [facility] Pacemaker Dependent? NO [facility] Pacing Mode DDD [facility] Serial Number [id number] [facility] Serial Number [id number] [facility] Serial Number [id number] [facility] Serial Number [id number] [facility] Test Charge Time 9.9 s [facility] Therapy Status (Vent) Enabled [facility] Thresh LV Capture Amplitude (volts) 1.8 V [facility] Thresh LV Capture Duration (ms) 0.5 ms [facility] Thresh RA Capture Amplitude (volts) 0.6 V [facility] Thresh RA Capture Duration (ms) 0.4 ms [facility] Thresh RV Capture Amplitude (VOLTS) 0.6 V [facility] Thresh RV Capture Duration (MS) 0.4 ms [facility] Tracking Rate (bpm) 130 {beats}/min [facility] VF Zone Detection Interval 300 ms [facility] VF Zone Therapy Configuration 1 ATP(s) + 8 Shock(s) [facility] Magnesium SerPl-mCncon 04-07 Magnesium [Mass/Vol] 2.6 mg/dL High 1.7-2.3 [facility] Comment on above: Order Comment: Speci men Type: BLOOD SPECIMENOrdering Facility: [facility] Address: [address] [place] [address] Performed By: #### 2 4323-8, 73654-6 ####[facility] LABIA [id number] [address] [place] No Panel Informationon 04-07 BLANK _ [facility] ICD-Fast Ventricular Tachycardia 0 [facility] Implant Date 03/31/2023 [facility] POTASSIUM BLDon 04-07-2023 Potassium [Moles/Vol] 5.0 mmol/L Normal 3.7-5.1 [facility] Comment on above: Order Comment: Speci men Type: BLOOD SPECIMENOrdering Facility: [facility] Address: [address] [place] [address] Performed By: #### K 1 ####[facility] LABCLIA [id number] [place] CBC panel Auto (Bld)on 04-06 Erythrocyte distribution width (RBC) [Ratio] 20.1 % High 11.5-15.0 [facility] Comment on above: Order Comment: Speci men Type: BLOOD SPECIMENOrdering Facility: [facility] Address: [address] [place] [address] Performed By: #### 5 8410-2 ####[facility] LABIA [id number] [address] [place] Hematocrit (Bld) [Volume fraction] 33.3 % Low 39.0-51.0 [facility] Comment on above: Order Comment: Speci men Type: BLOOD SPECIMENOrdering Facility: [facility] Address: [address] [place] [address] Performed By: #### 5 8410-2 ####[facility] LABIA [id number] [address] [place] Hemoglobin (Bld) [Mass/Vol] 10.3 g/dL Low 13.0-17.0 [facility] Comment on above: Order Comment: Speci men Type: BLOOD SPECIMENOrdering Facility: [facility] Address: [address] [place] [address] Performed By: #### 5 8410-2 ####[facility] LABIA [id number] [place] [address] [place] MCH (RBC) [Entitic mass] 24.6 pg Low 26.0-34.0 [facility] Comment on above: Order Comment: Speci men Type: BLOOD SPECIMENOrdering Facility: [facility] Address: [address] [place] [address] Performed By: #### 5 8410-2 ####[facility] LABIA [id number] [place] [address] [place] MCHC (RBC) [Mass/Vol] 30.9 g/dL Normal 30.5-36.0 [facility] Comment on above: Order Comment: Speci men Type: BLOOD SPECIMENOrdering Facility: [facility] Address: [address] [place], [place] [address] Performed By: #### 5 8410-2 ####[facility] LABIA [id number] [address] [place] MCV (RBC) [Entitic vol] 79.5 fL Low 80.0-100.0 [facility] Comment on above: Order Comment: Speci men Type: BLOOD SPECIMENOrdering Facility: [facility] Address: [address] [place], [place] [address] Performed By: #### 5 8410-2 ####[facility] LABIA [id number] [place] [address] [place] Nucleated RBC (Bld) [#/Vol] 10*3/uL Normal <0.01 [facility] Comment on above: Order Comment: Speci men Type: BLOOD SPECIMENOrdering Facility: [facility] Address: [address] [place], [place] [address] Performed By: #### 5 8410-2 ####[facility] LABIA [id number] [place] [address] [place] Platelet mean volume (Bld) [Entitic vol] 10.7 fL Normal 9.0-12.7 [facility] Comment on above: Order Comment: Speci men Type: BLOOD SPECIMENOrdering Facility: [facility] Address: [address] [place], [place] [address] Performed By: #### 5 8410-2 ####[facility] LABIA [id number] [place] [address] [place] Platelets (Bld) [#/Vol] 305 10*3/uL Normal 150-400 [facility] Comment on above: Order Comment: Speci men Type: BLOOD SPECIMENOrdering Facility: [facility] Address: [address] Performed By: #### 5 8410-2 ####[facility] LABCLIA [id number] [place] [address] [place] RBC (Bld) [#/Vol] 4.19 10*6/uL Low 4.20-6.00 [facility] Comment on above: Order Comment: Speci men Type: BLOOD SPECIMENOrdering Facility: [facility] Address: [address] Performed By: #### 5 8410-2 ####[facility] LABIA [id number] [place] [address] [place] WBC (Bld) [#/Vol] 7.31 10*3/uL Normal 3.70-11.00 [facility] Comment on above: Order Comment: Speci men Type: BLOOD SPECIMENOrdering Facility: [facility] Address: [address] Performed By: #### 5 8410-2 ####[facility] LABIA [id number] [place] [address] [place] Comprehensive metabolic 2000 panelon 04-06-2023 Albumin [Mass/Vol] 3.0 g/dL Low 3.9-4.9 [facility] Comment on above: Order Comment: Speci men Type: BLOOD SPECIMENOrdering Facility: [facility] Address: [address] [place] [address] Performed By: #### 1 9123-9, 00088-1 ####[facility] LABIA [id number] [place] [address] [place] ALP [Catalytic activity/Vol] 142 U/L High 38-113 [facility] Comment on above: Order Comment: Speci men Type: BLOOD SPECIMENOrdering Facility: [facility] Address: [address] Performed By: #### 1 9123-9, 90670-8 ####[facility] LABCLIA [id number] [place] [address] [place] ALT [Catalytic activity/Vol] 18 U/L Normal 10-54 [facility] Comment on above: Order Comment: Speci men Type: BLOOD SPECIMENOrdering Facility: [facility] Address: [address] [place] [address] Performed By: #### 1 9123-9, 46423-1 ####[facility] LABCLIA [id number] [place] [address] [place] Anion gap [Moles/Vol] 12 mmol/L Normal 9-18 [facility] Comment on above: Order Comment: Speci men Type: BLOOD SPECIMENOrdering Facility: [facility] Address: [address] [place] [address] Performed By: #### 1 91239, 56004-0 ####[facility] LABCLIA [id number] [address] [place] AST [Catalytic activity/Vol] 29 U/L Normal 14-40 [facility] Comment on above: Order Comment: Speci men Type: BLOOD SPECIMENOrdering Facility: [facility] Address: [address] [place] [address] Result Comment: Resu lts may be falsely increased due to interference from hemolysis. Suggest reorder as clinically indicated. Performed By: #### 1 9123-9, 68196-9 ####[facility] LABCLIA [id number] [place] [address] [place] Bilirubin [Mass/Vol] 1.0 mg/dL Normal 0.2-1.3 [facility] Comment on above: Order Comment: Speci men Type: BLOOD SPECIMENOrdering Facility: [facility] Address: [address] [place] [address] Performed By: #### 1 9123-9, 07550-2 ####[facility] LABCLIA [id number] [place] [address] [place] Calcium [Mass/Vol] 8.7 mg/dL Normal 8.5-10.2 [facility] Comment on above: Order Comment: Speci men Type: BLOOD SPECIMENOrdering Facility: [facility] Address: [address] [place] [address] Performed By: #### 1 9123-9, 22395-7 ####[facility] LABCLIA [id number] [place] [address] [place] Chloride [Moles/Vol] 96 mmol/L Low 97-105 [facility] Comment on above: Order Comment: Speci men Type: BLOOD SPECIMENOrdering Facility: [facility] Address: [address] [place] [address] Performed By: #### 1 91239, ####[facility] LABCLIA [id number] [place] [address] [place] CO2 [Moles/Vol] 21 mmol/L Low 22-30 [facility] Comment on above: Order Comment: Speci men Type: BLOOD SPECIMENOrdering Facility: [facility] Address: [address] [place], [place] [address] Performed By: #### 1 9123-9, 45264-8 ####[facility] LABCLIA [id number] [place] [address] [place] Creatinine [Mass/Vol] 2.08 mg/dL High 0.73-1.22 [facility] Comment on above: Order Comment: Speci men Type: BLOOD SPECIMENOrdering Facility: [facility] Address: [address] [place], [place] [address] Performed By: #### 1 9123-9, 99157-9 ####[facility] LABCLIA [id number] [place] [address] [place] Creatinine and Glomerular filtration rate.predicted panel (S/P/Bld) 35 mL/min/1.73m??? Low >=60 [facility] Comment on above: Order Comment: Joseline clemons Type: BLOOD SPECIMENOrdering Facility: [facility] Address: [address] [place], [place] [address] Result Comment: Syl mated Glomerular Filtration Rate [...] actual GFR. Performed By: #### 1 9123-9, 34146-6 ####[facility] LABCLIA [id number] [place] [address] [place] Glucose [Mass/Vol] 174 mg/dL High 74-99 [facility] Comment on above: Order Comment: Joseline clemons Type: BLOOD SPECIMENOrdering Facility: [facility] Address: [address] [place] [address] Result Comment: The [place] [employer] (ADA) provides guidance for cutoff [...] Standards of Medical Care in Diabetes 2016, [place] [employer]. Diabetes Care. 2016.39(Suppl 1). Performed By: #### 1 9123-9, 45905-3 ####[facility] LABCLIA [id number] [place] [address] [place] Potassium [Moles/Vol] 4.9 mmol/L Normal 3.7-5.1 [facility] Comment on above: Order Comment: Speci men Type: BLOOD SPECIMENOrdering Facility: [facility] Address: [address] Performed By: #### 1 9123-9, ####[facility] LABCLIA [id number] [place] [address] [place] Protein [Mass/Vol] 5.9 g/dL Low 6.3-8.0 [facility] Comment on above: Order Comment: Speci men Type: BLOOD SPECIMENOrdering Facility: [facility] Address: [address] [place] [address] Performed By: #### 1 9123-9, ####[facility] LABCLIA [id number] [place] [address] [place] Sodium [Moles/Vol] 129 mmol/L Low 136-144 [facility] Comment on above: Order Comment: Speci men Type: BLOOD SPECIMENOrdering Facility: [facility] Address: [address] [place] [address] Performed By: #### 1 239, ####[facility] LABCLIA [id number] [place] [address] [place] Urea nitrogen [Mass/Vol] 55 mg/dL High 9-24 [facility] Comment on above: Order Comment: Speci men Type: BLOOD SPECIMENOrdering Facility: [facility] Address: [address] Performed By: #### 1 9123-9, ####[facility] LABIA [id number] [place] [address] [place] Magnesium SerPl-mCncon 04-06 Magnesium [Mass/Vol] 2.5 mg/dL High 1.7-2.3 [facility] Comment on above: Order Comment: Speci men Type: BLOOD SPECIMENOrdering Facility: [facility] Address: [address] [place] [place] [address] Performed By: #### 1 9123-9, 14949-2 ####[facility] LABCLIA [id number] [place] [address] [place] POTASSIUM BLDon 04-06-2023 Potassium [Moles/Vol] 5.1 mmol/L Normal 3.7-5.1 [facility] Comment on above: Order Comment: Speci men Type: BLOOD SPECIMENOrdering Facility: [facility] Address: [address] [place] [address] Performed By: #### K 1 ####[facility] LABIA [id number] [place] [address] [place] CASE MANAGEMon 04-05-2023 CASE MANAGEM Normal [facility] CBC panel Auto (Bld)on 04-05 Erythrocyte distribution width (RBC) [Ratio] 20.1 % High 11.5-15.0 [facility] Comment on above: Order Comment: Speci men Type: BLOOD SPECIMENOrdering Facility: [facility] Address: [address] [place] [address] Performed By: #### 5 8410-2 ####[facility] LABIA [id number] [place] [address] [place] Hematocrit (Bld) [Volume fraction] 33.3 % Low 39.0-51.0 [facility] Comment on above: Order Comment: Speci men Type: BLOOD SPECIMENOrdering Facility: [facility] Address: [address] [place], [place] [address] Performed By: #### 5 8410-2 ####[facility] LABIA [id number] [place] [address] [place] Hemoglobin (Bld) [Mass/Vol] 10.5 g/dL Low 13.0-17.0 [facility] Comment on above: Order Comment: Speci men Type: BLOOD SPECIMENOrdering Facility: [facility] Address: [address] Performed By: #### 5 8410-2 ####[facility] [id number] [address] MCH (RBC) [Entitic mass] 24.8 pg Low 26.0-34.0 [facility] Comment on above: Order Comment: Speci men Type: BLOOD SPECIMENOrdering Facility: [facility] Address: [address] Performed By: #### 5 8410-2 ####[facility] [id number] [address] STATES [facility] MCHC (RBC) [Mass/Vol] 31.5 g/dL Normal 30.5-36.0 [facility] Comment on above: Order Comment: Speci men Type: BLOOD SPECIMENOrdering Facility: [facility] Address: [address] [place], [place] [address] Performed By: #### 5 8410-2 ####[facility] [id number] [address] [place] MCV (RBC) [Entitic vol] 78.7 fL Low 80.0-100.0 [facility] Comment on above: Order Comment: Speci men Type: BLOOD SPECIMENOrdering Facility: [facility] Address: [address] [place] [address] Performed By: #### 5 8410-2 ####[facility] [id number] [address] [place] Nucleated RBC (Bld) [#/Vol] 10*3/uL Normal <0.01 [facility] Comment on above: Order Comment: Speci men Type: BLOOD SPECIMENOrdering Facility: [facility] Address: [address] Performed By: #### 5 8410-2 ####[facility] LABCLIA [id number] [place] [address] [place] Platelet mean volume (Bld) [Entitic vol] 10.3 fL Normal 9.0-12.7 [facility] Comment on above: Order Comment: Speci men Type: BLOOD SPECIMENOrdering Facility: [facility] Address: [address] [place], [place] [address] Performed By: #### 5 8410-2 ####[facility] LABIA [id number] [place] [address] [place] Platelets (Bld) [#/Vol] 295 10*3/uL Normal 150-400 [facility] Comment on above: Order Comment: Speci men Type: BLOOD SPECIMENOrdering Facility: [facility] Address: [address] [place] [address] Performed By: #### 5 8410-2 ####[facility] LABIA [id number] [place] [address] [place] RBC (Bld) [#/Vol] 4.23 10*6/uL Normal 4.20-6.00 [facility] Comment on above: Order Comment: Speci men Type: BLOOD SPECIMENOrdering Facility: [facility] Address: [address] [place], [place] [address] Performed By: #### 5 8410-2 ####[facility] LABIA [id number] [place] [address] [place] WBC (Bld) [#/Vol] 8.11 10*3/uL Normal 3.70-11.00 [facility] Comment on above: Order Comment: Speci men Type: BLOOD SPECIMENOrdering Facility: [facility] Address: [address] [place], [place] [address] Performed By: #### 5 8410-2 ####[facility] LABIA [id number] [address] OF [facility] Comprehensive metabolic 2000 panelon 04-05-2023 Albumin [Mass/Vol] 3.2 g/dL Low 3.9-4.9 [facility] Comment on above: Order Comment: Speci men Type: BLOOD SPECIMENOrdering Facility: [facility] Address: [address] [place] [address] Performed By: #### 2 4323-8 ####[facility] LABCLIA [id number] [place] [address] [place] ALP [Catalytic activity/Vol] 151 U/L High 38-113 [facility] Comment on above: Order Comment: Speci men Type: BLOOD SPECIMENOrdering Facility: [facility] Address: [address] [place] [address] Performed By: #### 2 4323-8 ####[facility] LABCLIA [id number] [address] [place] ALT [Catalytic activity/Vol] 18 U/L Normal 10-54 [facility] Comment on above: Order Comment: Speci men Type: BLOOD SPECIMENOrdering Facility: [facility] Address: [address] [place], [place] [address] Performed By: #### 2 4323-8 ####[facility] LABCLIA [id number] [place] [address] [place] Anion gap [Moles/Vol] 13 mmol/L Normal 9-18 [facility] Comment on above: Order Comment: Speci men Type: BLOOD SPECIMENOrdering Facility: [facility] Address: [address] [place], [place] [address] Performed By: #### 2 4323-8 ####[facility] LABCLIA [id number] [place] [address] [place] AST [Catalytic activity/Vol] 20 U/L Normal 14-40 [facility] Comment on above: Order Comment: Speci men Type: BLOOD SPECIMENOrdering Facility: [facility] Address: [address] [place] [address] Performed By: #### 2 4323-8 ####[facility] LABCLIA [id number] [place] [address] [place] Bilirubin [Mass/Vol] 1.2 mg/dL Normal 0.2-1.3 [facility] Comment on above: Order Comment: Speci men Type: BLOOD SPECIMENOrdering Facility: [facility] Address: [address] Performed By: #### 2 4323-8 ####[facility] LABCLIA [id number] [place] [address] [place] Calcium [Mass/Vol] 9.0 mg/dL Normal 8.5-10.2 [facility] Comment on above: Order Comment: Speci men Type: BLOOD SPECIMENOrdering Facility: [facility] Address: [address] Performed By: #### 2 4323-8 ####[facility] LABCLIA [id number] [place] [address] [place] Chloride [Moles/Vol] 96 mmol/L Low 97-105 [facility] Comment on above: Order Comment: Speci men Type: BLOOD SPECIMENOrdering Facility: [facility] Address: [address] [place] [address] Performed By: #### 2 4323-8 ####[facility] LABCLIA [id number] [place] [address] [place] CO2 [Moles/Vol] 22 mmol/L Normal 22-30 [facility] Comment on above: Order Comment: Speci men Type: BLOOD SPECIMENOrdering Facility: [facility] Address: [address] [place] [address] Performed By: #### 2 4323-8 ####[facility] LABCLIA [id number] [place] [address] STATES OF [facility] Creatinine [Mass/Vol] 2.15 mg/dL High 0.73-1.22 [facility] Comment on above: Order Comment: Joseline clemons Type: BLOOD SPECIMENOrdering Facility: [facility] Address: [address] [address] Performed By: #### 2 4323-8 ####[facility] LABCLIA [id number] [address] Creatinine and Glomerular filtration rate.predicted panel (S/P/Bld) 33 mL/min/1.73m??? Low >=60 [facility] Comment on above: Order Comment: Joseline clemons Type: BLOOD SPECIMENOrdering Facility: [facility] Address: [address] [place] [address] Result Comment: Syl mated Glomerular Filtration Rate [...] actual GFR. Performed By: #### 2 4323-8 ####[facility] LABCLIA [id number] [place] [address] [place] Glucose [Mass/Vol] 208 mg/dL High 74-99 [facility] Comment on above: Order Comment: Joseline clemons Type: BLOOD SPECIMENOrdering Facility: [facility] Address: [address] [address] Result Comment: The [place] [employer] (ADA) provides guidance for cutoff [...] Standards of Medical Care in Diabetes 2016, [place] [employer]. Diabetes Care. 2016.39(Suppl 1). Performed By: #### 2 4323-8 ####[facility] LABCLIA [id number] [place] [address] [place] Potassium [Moles/Vol] 4.4 mmol/L Normal 3.7-5.1 [facility] Comment on above: Order Comment: Speci men Type: BLOOD SPECIMENOrdering Facility: [facility] Address: [address] [address] Performed By: #### 2 4323-8 ####[facility] LABIA [id number] [place] [address] [place] Protein [Mass/Vol] 6.4 g/dL Normal 6.3-8.0 [facility] Comment on above: Order Comment: Speci men Type: BLOOD SPECIMENOrdering Facility: [facility] Address: [address] [address] Performed By: #### 2 4323-8 ####[facility] LABIA [id number] [place] [address] [place] Sodium [Moles/Vol] 131 mmol/L Low 136-144 [facility] Comment on above: Order Comment: Speci men Type: BLOOD SPECIMENOrdering Facility: [facility] Address: [address] Performed By: #### 2 4323-8 ####[facility] LABCLIA [id number] [place] [address] [place] Urea nitrogen [Mass/Vol] 50 mg/dL High 9-24 [facility] Comment on above: Order Comment: Speci men Type: BLOOD SPECIMENOrdering Facility: [facility] Address: [address] Performed By: #### 2 4323-8 ####[facility] LABIA [id number] [place] [id number] [place] ECG COMPLETEon 04-05-2023 ECG COMPLETE Normal [facility] Magnesium SerPl-mCncon 04-05 Magnesium [Mass/Vol] 2.5 mg/dL High 1.7-2.[address] [facility] Comment on above: Order Comment: Speci men Type: BLOOD SPECIMENOrdering Facility: [facility] Address: [address] [address] Performed By: #### 1 9123-9 ####[facility] LABIA [id number] [place] [address] [place] NUTRITIONon 04-05-2023 NUTRITION Normal [facility] CBC panel Auto (Bld)on 04-04 Erythrocyte distribution width (RBC) [Ratio] 20.0 % High 11.5-15.0 [facility] Comment on above: Order Comment: Speci men Type: BLOOD SPECIMENOrdering Facility: [facility] Address: [address] [place] [address] Performed By: #### 5 8410-2 ####[facility] [id number] [place] [address] [place] Hematocrit (Bld) [Volume fraction] 31.7 % Low 39.0-51.0 [facility] Comment on above: Order Comment: Speci men Type: BLOOD SPECIMENOrdering Facility: [facility] Address: [address] [address] Performed By: #### 5 8410-2 ####[facility] LABIA [id number] [place] [address] [place] Hemoglobin (Bld) [Mass/Vol] 9.9 g/dL Low 13.0-17.0 [facility] Comment on above: Order Comment: Speci men Type: BLOOD SPECIMENOrdering Facility: [facility] Address: [address] [place], [place] [address] Performed By: #### 5 8410-2 ####[facility] LABIA [id number] [address] STATES [facility] MCH (RBC) [Entitic mass] 24.5 pg Low 26.0-34.0 [facility] Comment on above: Order Comment: Speci men Type: BLOOD SPECIMENOrdering Facility: [facility] Address: [address] [place], [place] [address] Performed By: #### 5 8410-2 ####[facility] LABIA [id number] [address] [place] MCHC (RBC) [Mass/Vol] 31.2 g/dL Normal 30.5-36.0 [facility] Comment on above: Order Comment: Speci men Type: BLOOD SPECIMENOrdering Facility: [facility] Address: [address] [place], [place] [address] Performed By: #### 5 8410-2 ####[facility] LABIA [id number] [address] [place] MCV (RBC) [Entitic vol] 78.5 fL Low 80.0-100.0 [facility] Comment on above: Order Comment: Speci men Type: BLOOD SPECIMENOrdering Facility: [facility] Address: [address] [place], [place] [address] Performed By: #### 5 8410-2 ####[facility] LABIA [id number] [address] [place] Nucleated RBC (Bld) [#/Vol] 10*3/uL Normal <0.01 [facility] Comment on above: Order Comment: Speci men Type: BLOOD SPECIMENOrdering Facility: [facility] Address: [address] [place], [place] [address] Performed By: #### 5 8410-2 ####[facility] LABIA [id number] [place] [address] [place] Platelet mean volume (Bld) [Entitic vol] 10.0 fL Normal 9.0-12.7 [facility] Comment on above: Order Comment: Speci men Type: BLOOD SPECIMENOrdering Facility: [facility] Address: [address] [place] [address] Performed By: #### 5 8410-2 ####[facility] LABIA [id number] [place] [address] [place] Platelets (Bld) [#/Vol] 258 10*3/uL Normal 150-400 [facility] Comment on above: Order Comment: Speci men Type: BLOOD SPECIMENOrdering Facility: [facility] Address: [address] [place] [address] Performed By: #### 5 8410-2 ####[facility] LABIA [id number] [place] [address] [place] RBC (Bld) [#/Vol] 4.04 10*6/uL Low 4.20-6.00 [facility] Comment on above: Order Comment: Speci men Type: BLOOD SPECIMENOrdering Facility: [facility] Address: [address] [place], [place] [address] Performed By: #### 5 8410-2 ####[facility] LABIA [id number] [place] [address] [place] WBC (Bld) [#/Vol] 8.15 10*3/uL Normal 3.70-11.00 [facility] Comment on above: Order Comment: Speci men Type: BLOOD SPECIMENOrdering Facility: [facility] Address: [address] [place], [place] [address] Performed By: #### 5 8410-2 ####[facility] LABIA [id number] [place] [address] [place] CONSULT PROGon 04-04-2023 CONSULT PROG Normal [facility] Comprehensive metabolic 2000 panelon 04-04-2023 Albumin [Mass/Vol] 3.0 g/dL Low 3.9-4.9 [facility] Comment on above: Order Comment: Speci men Type: BLOOD SPECIMENOrdering Facility: [facility] Address: [address] [place] [address] Performed By: #### 1 9123-9, 12305-0, 67684-2 ####[facility] LABCLIA [id number] [place] [address] [place] ALP [Catalytic activity/Vol] 128 U/L High 38-113 [facility] Comment on above: Order Comment: Speci men Type: BLOOD SPECIMENOrdering Facility: [facility] Address: [address] [place] [address] Performed By: #### 1 9123-9, 32941-7, 31113-3 ####[facility] LABCLIA [id number] [place] [address] [place] ALT [Catalytic activity/Vol] 16 U/L Normal 10-54 [facility] Comment on above: Order Comment: Speci men Type: BLOOD SPECIMENOrdering Facility: [facility] Address: [address] [place] [address] Performed By: #### 1 9123-9, 52536-2, 66080-9 ####[facility] LABCLIA [id number] [place] [address] [place] Anion gap [Moles/Vol] 11 mmol/L Normal 9-18 [facility] Comment on above: Order Comment: Speci men Type: BLOOD SPECIMENOrdering Facility: [facility] Address: [address] [place] [address] Performed By: #### 1 9123-9, 38755-3, 67427-7 ####[facility] LABCLIA [id number] [place] [address] [id number] [address] [place] AST [Catalytic activity/Vol] 26 U/L Normal 14-40 [facility] Comment on above: Order Comment: Speci men Type: BLOOD SPECIMENOrdering Facility: [facility] Address: [address] [address] Result Comment: Resu lts may be falsely increased due to interference from hemolysis. Suggest reorder as clinically indicated. Performed By: #### 1 9123-9, 17954-9, 72161-6 ####[facility] LABCLIA [id number] [place] [address] [place] Bilirubin [Mass/Vol] 1.0 mg/dL Normal 0.2-1.3 [facility] Comment on above: Order Comment: Speci men Type: BLOOD SPECIMENOrdering Facility: [facility] Address: [address] [place] [address] Performed By: #### 1 9123-9, 48942-6, 99488-4 ####[facility] LABCLIA [id number] [place] [address] [place] Calcium [Mass/Vol] 8.8 mg/dL Normal 8.5-10.2 [facility] Comment on above: Order Comment: Speci men Type: BLOOD SPECIMENOrdering Facility: [facility] Address: [address] [place] [address] Performed By: #### 1 9123-9, 37148-5, 34635-2 ####[facility] LABCLIA [id number] [place] [address] [place] Chloride [Moles/Vol] 95 mmol/L Low 97-105 [facility] Comment on above: Order Comment: Speci men Type: BLOOD SPECIMENOrdering Facility: [facility] Address: [address] [address] Performed By: #### 1 9123-9, 63026-5, 24121-0 ####[facility] LABCLIA [id number] [place] [address] [place] CO2 [Moles/Vol] 22 mmol/L Normal 22-30 [facility] Comment on above: Order Comment: Joseline clemosn Type: BLOOD SPECIMENOrdering Facility: [facility] Address: [address] [place] [address] Performed By: #### 1 9123-9, 06165-5, 94210-0 ####[facility] LABCLIA [id number] [place] [address] [place] Creatinine [Mass/Vol] 2.00 mg/dL High 0.73-1.22 [facility] Comment on above: Order Comment: Joseline clemons Type: BLOOD SPECIMENOrdering Facility: [facility] Address: [address] [place] [address] Performed By: #### 1 9123-9, 85213-4, 35932-5 ####[facility] LABCLIA [id number] [place] [address] [place] Creatinine and Glomerular filtration rate.predicted panel (S/P/Bld) 36 mL/min/1.73m??? Low >=60 [facility] Comment on above: Order Comment: Joseline clemons Type: BLOOD SPECIMENOrdering Facility: [facility] Address: [address] [place] [address] Result Comment: Syl mated Glomerular Filtration Rate [...] actual GFR. Performed By: #### 1 9123-9, 74197-1, 68217-5 ####[facility] LABCLIA [id number] [place] [address] [place] Glucose [Mass/Vol] 159 mg/dL High 74-99 [facility] Comment on above: Order Comment: Speci men Type: BLOOD SPECIMENOrdering Facility: [facility] Address: [address] Result Comment: The [place] [employer] (ADA) provides guidance for cutoff [...] Standards of Medical Care in Diabetes 2016, [place] [employer]. Diabetes Care. 2016.39(Suppl 1). Performed By: #### 1 9123-9, 00623-5, 63020-6 ####[facility] LABCLIA [id number] [place] [address] [place] Potassium [Moles/Vol] 4.2 mmol/L Normal 3.7-5.1 [facility] Comment on above: Order Comment: Joseline clemons Type: BLOOD SPECIMENOrdering Facility: [facility] Address: [address] Performed By: #### 1 9123-9, 32096-0, 75327-4 ####[facility] LABCLIA [id number] [place] [address] [place] Protein [Mass/Vol] 6.1 g/dL Low 6.3-8.0 [facility] Comment on above: Order Comment: Joseline clemons Type: BLOOD SPECIMENOrdering Facility: [facility] Address: [address] [place] [address] Performed By: #### 1 9123-9, 90669-9, 49221-9 ####[facility] LABCLIA [id number] [place] [address] [place] Sodium [Moles/Vol] 128 mmol/L Low 136-144 [facility] Comment on above: Order Comment: Speci men Type: BLOOD SPECIMENOrdering Facility: [facility] Address: [address] [place] [address] Performed By: #### 1 9123-9, 58976-4, 35783-9 ####[facility] LABCLIA [id number] [place] [address] [place] Urea nitrogen [Mass/Vol] 47 mg/dL High 9-24 [facility] Comment on above: Order Comment: Speci men Type: BLOOD SPECIMENOrdering Facility: [facility] Address: [address] [place] [address] Performed By: #### 1 9123-9, 93746-7, 66336-1 ####[facility] LABCLIA [id number] [place] [address] [place] Magnesium SerPl-mCncon 04-04 Magnesium [Mass/Vol] 2.4 mg/dL High 1.7-2.3 [facility] Comment on above: Order Comment: Speci men Type: BLOOD SPECIMENOrdering Facility: [facility] Address: [address] [place] [address] Performed By: #### 1 9123-9, 07136-3, 01942-9 ####[facility] LABCLIA [id number] [place] [address] [place] NT-proBNP SerPl-mCncon 04-04 Natriuretic peptide.B prohormone N-Terminal [Mass/Vol] 5065 pg/mL High <125 [facility] Comment on above: Order Comment: Speci men Type: BLOOD SPECIMENOrdering Facility: [facility] Address: [address] [place] [address] Performed By: #### 1 9123-9, 01119-9, 02159-1 ####[facility] LABCLIA [id number] [place] [address] [place] CASE MANAGEMon 04-03-2023 CASE MANAGEM Normal [facility] CBC panel Auto (Bld)on 04-03 Erythrocyte distribution width (RBC) [Ratio] 20.2 % High 11.5-15.0 [facility] Comment on above: Order Comment: Speci men Type: BLOOD SPECIMENOrdering Facility: [facility] Address: [address] [place] [address] Performed By: #### 5 8410-2 ####[facility] LABIA [id number] [place] [address] [place] Hematocrit (Bld) [Volume fraction] 34.2 % Low 39.0-51.0 [facility] Comment on above: Order Comment: Speci men Type: BLOOD SPECIMENOrdering Facility: [facility] Address: [address] [place] [address] Performed By: #### 5 8410-2 ####[facility] LABIA [id number] [place] [address] [place] Hemoglobin (Bld) [Mass/Vol] 10.3 g/dL Low 13.0-17.0 [facility] Comment on above: Order Comment: Speci men Type: BLOOD SPECIMENOrdering Facility: [facility] Address: [address] [place] [address] Performed By: #### 5 8410-2 ####[facility] LABIA [id number] [place] [address] [place] MCH (RBC) [Entitic mass] 24.4 pg Low 26.0-34.0 [facility] Comment on above: Order Comment: Speci men Type: BLOOD SPECIMENOrdering Facility: [facility] Address: [address] [place] [address] Performed By: #### 5 8410-2 ####[facility] LABIA [id number] [place] [address]ED[id number] MCHC (RBC) [Mass/Vol] 30.1 g/dL Low 30.5-36.0 [facility] Comment on above: Order Comment: Speci men Type: BLOOD SPECIMENOrdering Facility: [facility] Address: [address] [place] [address] Performed By: #### 5 8410-2 ####[facility] LABCLIA [id number] [address] [place] MCV (RBC) [Entitic vol] 81.0 fL Normal 80.0-100.0 [facility] Comment on above: Order Comment: Speci men Type: BLOOD SPECIMENOrdering Facility: [facility] Address: [address] [place], [place] [address] Performed By: #### 5 8410-2 ####[facility] LABIA [id number] [address] [place] Nucleated RBC (Bld) [#/Vol] 10*3/uL Normal <0.01 [facility] Comment on above: Order Comment: Speci men Type: BLOOD SPECIMENOrdering Facility: [facility] Address: [address] [place], [place] [address] Performed By: #### 5 8410-2 ####[facility] LABIA [id number] [place] [address] [place] Platelet mean volume (Bld) [Entitic vol] 10.3 fL Normal 9.0-12.7 [facility] Comment on above: Order Comment: Speci men Type: BLOOD SPECIMENOrdering Facility: [facility] Address: [address] [place], [place] [address] Performed By: #### 5 8410-2 ####[facility] LABCLIA [id number] [place] [address] [place] Platelets (Bld) [#/Vol] 235 10*3/uL Normal 150-400 [facility] Comment on above: Order Comment: Speci men Type: BLOOD SPECIMENOrdering Facility: [facility] Address: [address] [place], [place] [address] Performed By: #### 5 8410-2 ####[facility] LABIA [id number] [place] [address] [place] RBC (Bld) [#/Vol] 4.22 10*6/uL Normal 4.20-6.00 [facility] Comment on above: Order Comment: Speci men Type: BLOOD SPECIMENOrdering Facility: [facility] Address: [address] Performed By: #### 5 8410-2 ####[facility] LABIA [id number] [place] [address] [place] WBC (Bld) [#/Vol] 7.92 10*3/uL Normal 3.70-11.00 [facility] Comment on above: Order Comment: Speci men Type: BLOOD SPECIMENOrdering Facility: [facility] Address: [address] [place], [place] [address] Performed By: #### 5 8410-2 ####[facility] LABIA [id number] [place] [address] [place] Comprehensive metabolic 2000 panelon 04-03-2023 Albumin [Mass/Vol] 3.1 g/dL Low 3.9-4.9 [facility] Comment on above: Order Comment: Speci men Type: BLOOD SPECIMENOrdering Facility: [facility] Address: [address] [place], [place] [address] Performed By: #### 2 4323-8 ####[facility] LABIA [id number] [place] [address] [place] ALP [Catalytic activity/Vol] 127 U/L High 38-113 [facility] Comment on above: Order Comment: Speci men Type: BLOOD SPECIMENOrdering Facility: [facility] Address: [address] [place] [address] Performed By: #### 2 4323-8 ####[facility] LABCLIA [id number] [address] [place] ALT [Catalytic activity/Vol] 16 U/L Normal 10-54 [facility] Comment on above: Order Comment: Speci men Type: BLOOD SPECIMENOrdering Facility: [facility] Address: [address] [place] [address] Performed By: #### 2 4323-8 ####[facility] LABCLIA [id number] [place] [address] [place] Anion gap [Moles/Vol] 10 mmol/L Normal 9-18 [facility] Comment on above: Order Comment: Speci men Type: BLOOD SPECIMENOrdering Facility: [facility] Address: [address] [place] [address] Performed By: #### 2 4323-8 ####[facility] LABCLIA [id number] [place] [address] [place] AST [Catalytic activity/Vol] 16 U/L Normal 14-40 [facility] Comment on above: Order Comment: Speci men Type: BLOOD SPECIMENOrdering Facility: [facility] Address: [address] [place] [address] Performed By: #### 2 4323-8 ####[facility] LABCLIA [id number] [place] [address] [place] Bilirubin [Mass/Vol] 1.2 mg/dL Normal 0.2-1.3 [facility] Comment on above: Order Comment: Speci men Type: BLOOD SPECIMENOrdering Facility: [facility] Address: [address] [place], [place] [address] Performed By: #### 2 4323-8 ####[facility] LABCLIA [id number] [place] [address] [place] Calcium [Mass/Vol] 8.8 mg/dL Normal 8.5-10.2 [facility] Comment on above: Order Comment: Speci men Type: BLOOD SPECIMENOrdering Facility: [facility] Address: [address] [place] [address] Performed By: #### 2 4323-8 ####[facility] LABCLIA [id number] [place] [address] [place] Chloride [Moles/Vol] 96 mmol/L Low 97-105 [facility] Comment on above: Order Comment: Speci men Type: BLOOD SPECIMENOrdering Facility: [facility] Address: [address] [place] [address] Performed By: #### 2 4323-8 ####[facility] LABCLIA [id number] [place] [address] [place] CO2 [Moles/Vol] 23 mmol/L Normal 22-30 [facility] Comment on above: Order Comment: Speci men Type: BLOOD SPECIMENOrdering Facility: [facility] Address: [address] [place], [place] [address] Performed By: #### 2 4323-8 ####[facility] LABCLIA [id number] [place] [address] [place] Creatinine [Mass/Vol] 1.96 mg/dL High 0.73-1.22 [facility] Comment on above: Order Comment: Speci men Type: BLOOD SPECIMENOrdering Facility: [facility] Address: [address] [place], [place] [address] Performed By: #### 2 4323-8 ####[facility] LABCLIA [id number] [place] [address] [place] Creatinine and Glomerular filtration rate.predicted panel (S/P/Bld) 37 mL/min/1.73m??? Low >=60 [facility] Comment on above: Order Comment: Speci men Type: BLOOD SPECIMENOrdering Facility: [facility] Address: [address] [id number] Result Comment: Syl mated Glomerular Filtration Rate [...] actual GFR. Performed By: #### 2 4323-8 ####[facility] LABCLIA [id number] [place] [address] [place] Glucose [Mass/Vol] 168 mg/dL High 74-99 [facility] Comment on above: Order Comment: Joseline clemons Type: BLOOD SPECIMENOrdering Facility: [facility] Address: [address] [address] Result Comment: The [place] [employer] (ADA) provides guidance for cutoff [...] Standards of Medical Care in Diabetes 2016, [place] [employer]. Diabetes Care. 2016.39(Suppl 1). Performed By: #### 2 4323-8 ####[facility] LABCLIA [id number] [place] [address] [place] Potassium [Moles/Vol] 4.0 mmol/L Normal 3.7-5.1 [facility] Comment on above: Order Comment: Joseline clemons Type: BLOOD SPECIMENOrdering Facility: [facility] Address: [address] [phone] Performed By: #### 2 4323-8 ####[facility] LABCLIA [id number] [place] [address] [place] Protein [Mass/Vol] 6.1 g/dL Low 6.3-8.0 [facility] Comment on above: Order Comment: Speci men Type: BLOOD SPECIMENOrdering Facility: [facility] Address: [address] [address] Performed By: #### 2 4323-8 ####[facility] LABCLIA [id number] [place] [address] [place] Sodium [Moles/Vol] 129 mmol/L Low 136-144 [facility] Comment on above: Order Comment: Speci men Type: BLOOD SPECIMENOrdering Facility: [facility] Address: [address] [place] [address] Performed By: #### 2 4323-8 ####[facility] LABIA [id number] [place] [address] [place] Urea nitrogen [Mass/Vol] 49 mg/dL High 9-24 [facility] Comment on above: Order Comment: Speci men Type: BLOOD SPECIMENOrdering Facility: [facility] Address: [address] [place] [address] Performed By: #### 2 4323-8 ####[facility] LABCLIA [id number] [place] [address] [place] CBC panel Auto (Bld)on 04-02 Erythrocyte distribution width (RBC) [Ratio] 20.2 % High 11.5-15.0 [facility] Comment on above: Order Comment: Speci men Type: BLOOD SPECIMENOrdering Facility: [facility] Address: [address] [place] [address] Performed By: #### 5 8410-2 ####[facility] LABCLIA [id number] [place] [address] [place] Hematocrit (Bld) [Volume fraction] 32.1 % Low 39.0-51.0 [facility] Comment on above: Order Comment: Speci men Type: BLOOD SPECIMENOrdering Facility: [facility] Address: [address] [place] [address] Performed By: #### 5 8410-2 ####[facility] LABCLIA [id number] [place] [address] [place] Hemoglobin (Bld) [Mass/Vol] 10.1 g/dL Low 13.0-17.0 [facility] Comment on above: Order Comment: Speci men Type: BLOOD SPECIMENOrdering Facility: [facility] Address: [address] [place] [address] Performed By: #### 5 8410-2 ####[facility] LABCLIA [id number] [place] [address] [place] MCH (RBC) [Entitic mass] 24.6 pg Low 26.0-34.0 [facility] Comment on above: Order Comment: Speci men Type: BLOOD SPECIMENOrdering Facility: [facility] Address: [address] [place] [address] Performed By: #### 5 8410-2 ####[facility] LABIA [id number] [place] [address] [place] MCHC (RBC) [Mass/Vol] 31.5 g/dL Normal 30.5-36.0 [facility] Comment on above: Order Comment: Speci men Type: BLOOD SPECIMENOrdering Facility: [facility] Address: [address] [place], [place] [address] Performed By: #### 5 8410-2 ####[facility] LABCLIA [id number] [place] [address] [place] MCV (RBC) [Entitic vol] 78.1 fL Low 80.0-100.0 [facility] Comment on above: Order Comment: Speci men Type: BLOOD SPECIMENOrdering Facility: [facility] Address: [address] [place] [address] Performed By: #### 5 8410-2 ####[facility] LABCLIA [id number] [place] [address] [place] Nucleated RBC (Bld) [#/Vol] 10*3/uL Normal <0.01 [facility] Comment on above: Order Comment: Speci men Type: BLOOD SPECIMENOrdering Facility: [facility] Address: [address] Performed By: #### 5 8410-2 ####[facility] LABIA [id number] [place] [address] [place] Platelet mean volume (Bld) [Entitic vol] 9.8 fL Normal 9.0-12.7 [facility] Comment on above: Order Comment: Speci men Type: BLOOD SPECIMENOrdering Facility: [facility] Address: [address] Performed By: #### 5 8410-2 ####[facility] LABIA [id number] [place] [address] [place] Platelets (Bld) [#/Vol] 222 10*3/uL Normal 150-400 [facility] Comment on above: Order Comment: Speci men Type: BLOOD SPECIMENOrdering Facility: [facility] Address: [address] [place] [address] Performed By: #### 5 8410-2 ####[facility] LABCLIA [id number] [place] [address] [place] RBC (Bld) [#/Vol] 4.11 10*6/uL Low 4.20-6.00 [facility] Comment on above: Order Comment: Speci men Type: BLOOD SPECIMENOrdering Facility: [facility] Address: [address] Performed By: #### 5 8410-2 ####[facility] LABCLIA [id number] [place] [address] [place] WBC (Bld) [#/Vol] 8.44 10*3/uL Normal 3.70-11.00 [facility] Comment on above: Order Comment: Speci men Type: BLOOD SPECIMENOrdering Facility: [facility] Address: [address] [place] [address] Performed By: #### 5 8410-2 ####[facility] LABCLIA [id number] [place] [address] [place] CONSULT PROGon 04-02-2023 CONSULT PROG Normal [facility] Comprehensive metabolic 2000 panelon 04-02-2023 Albumin [Mass/Vol] 3.3 g/dL Low 3.9-4.9 [facility] Comment on above: Order Comment: Speci men Type: BLOOD SPECIMENOrdering Facility: [facility] Address: [address] [place], [place] [address] Performed By: #### 2 432-8, ####[facility] LABCLIA [id number] [place] [address] [place] ALP [Catalytic activity/Vol] 133 U/L High 38-113 [facility] Comment on above: Order Comment: Speci men Type: BLOOD SPECIMENOrdering Facility: [facility] Address: [address] [place], [place] [address] Performed By: #### 2 432-8, ####[facility] LABCLIA [id number] [place] [address] [place] ALT [Catalytic activity/Vol] 16 U/L Normal 10-54 [facility] Comment on above: Order Comment: Speci men Type: BLOOD SPECIMENOrdering Facility: [facility] Address: [address] [place], [place] [address] Performed By: #### 2 4323-8, ####[facility] LABCLIA [id number] [place] [address] [place] Anion gap [Moles/Vol] 14 mmol/L Normal 9-18 [facility] Comment on above: Order Comment: Speci men Type: BLOOD SPECIMENOrdering Facility: [facility] Address: [address] [place] [address] Performed By: #### 2 4323-8, ####[facility] LABCLIA [id number] [place] [address] [place] AST [Catalytic activity/Vol] 17 U/L Normal 14-40 [facility] Comment on above: Order Comment: Speci men Type: BLOOD SPECIMENOrdering Facility: [facility] Address: [address] [place] [address] Performed By: #### 2 432-8, ####[facility] LABCLIA [id number] [place] [address] [place] Bilirubin [Mass/Vol] 1.6 mg/dL High 0.2-1.3 [facility] Comment on above: Order Comment: Speci men Type: BLOOD SPECIMENOrdering Facility: [facility] Address: [address] [place] [address] Performed By: #### 2 432-8, ####[facility] LABCLIA [id number] [place] [address] [place] Calcium [Mass/Vol] 9.1 mg/dL Normal 8.5-10.2 [facility] Comment on above: Order Comment: Speci men Type: BLOOD SPECIMENOrdering Facility: [facility] Address: [address] [place], [place] [address] Performed By: #### 2 432-8, ####[facility] LABCLIA [id number] [place] [address] [place] Chloride [Moles/Vol] 96 mmol/L Low 97-105 [facility] Comment on above: Order Comment: Speci men Type: BLOOD SPECIMENOrdering Facility: [facility] Address: [address] Performed By: #### 2 4323-8, ####[facility] LABCLIA [id number] [place] [address] [place] CO2 [Moles/Vol] 21 mmol/L Low 22-30 [facility] Comment on above: Order Comment: Speci men Type: BLOOD SPECIMENOrdering Facility: [facility] Address: [address] Performed By: #### 2 4328, ####[facility] LABCLIA [id number] [place] [address] [place] Creatinine [Mass/Vol] 2.07 mg/dL High 0.73-1.22 [facility] Comment on above: Order Comment: Speci men Type: BLOOD SPECIMENOrdering Facility: [facility] Address: [address] [place] [address] Performed By: #### 2 4328, ####[facility] LABIA [id number] [place] [address] [place] Creatinine and Glomerular filtration rate.predicted panel (S/P/Bld) 35 mL/min/1.73m??? Low >=60 [facility] Comment on above: Order Comment: Speci men Type: BLOOD SPECIMENOrdering Facility: [facility] Address: [address] [place], [place] [id number] Result Comment: Syl mated Glomerular Filtration Rate [...] reflect actual GFR. Performed By: #### 2 4328, ####[facility] LABCLIA [id number] [place] [address] [place] Glucose [Mass/Vol] 155 mg/dL High 74-99 [facility] Comment on above: Order Comment: Speci men Type: BLOOD SPECIMENOrdering Facility: [facility] Address: [address] [address] Result Comment: The [place] [employer] (ADA) provides guidance for cutoff [...] Standards of Medical Care in Diabetes 2016, [place] [employer]. Diabetes Care. 2016.39(Suppl 1). Performed By: #### 2 432[address]-12, ####[facility] LABIA [id number] [place] [address] [place] Potassium [Moles/Vol] 4.0 mmol/L Normal 3.7-5.1 [facility] Comment on above: Order Comment: Speci men Type: BLOOD SPECIMENOrdering Facility: [facility] Address: [address] Performed By: #### 2 432-8, ####[facility] LABIA [id number] [place] [address] [place] Protein [Mass/Vol] 6.5 g/dL Normal 6.3-8.0 [facility] Comment on above: Order Comment: Speci men Type: BLOOD SPECIMENOrdering Facility: [facility] Address: [address] [address] Performed By: #### 2 4323-8, ####[facility] LABCLIA [id number] [place] [address] [place] Sodium [Moles/Vol] 131 mmol/L Low 136-144 [facility] Comment on above: Order Comment: Speci men Type: BLOOD SPECIMENOrdering Facility: [facility] Address: [address] [place], [place] [address] Performed By: #### 2 4323-8, ####[facility] LABCLIA [id number] [place] [address] [place] Urea nitrogen [Mass/Vol] 50 mg/dL High 9-24 [facility] Comment on above: Order Comment: Speci men Type: BLOOD SPECIMENOrdering Facility: [facility] Address: [address] [place], [place] [address] Performed By: #### 2 4323-8, ####[facility] LABCLIA [id number] [place] [address] [place] Magnesium SerPl-mCncon 04-02 Magnesium [Mass/Vol] 2.3 mg/dL Normal 1.7-2.3 [facility] Comment on above: Order Comment: Speci men Type: BLOOD SPECIMENOrdering Facility: [facility] Address: [address] [place], [place] [address] Performed By: #### 2 4323-8, ####[facility] LABCLIA [id number] [place] [id number] [place] XR CHEST 2V FRONTAL/LATon XR CHEST 2V FRONTAL/LAT Normal [facility] CBC panel Auto (Bld)on 04-01 Erythrocyte distribution width (RBC) [Ratio] 20.5 % High 11.5-15.0 [facility] Comment on above: Order Comment: Speci men Type: BLOOD SPECIMENOrdering Facility: [facility] Address: [address] Performed By: #### 5 8410-2 ####[facility] LABIA [id number] [address] [place] Hematocrit (Bld) [Volume fraction] 34.3 % Low 39.0-51.0 [facility] Comment on above: Order Comment: Speci men Type: BLOOD SPECIMENOrdering Facility: [facility] Address: [address] Performed By: #### 5 8410-2 ####[facility] LABIA [id number] [place] [address] [place] Hemoglobin (Bld) [Mass/Vol] 10.5 g/dL Low 13.0-17.0 [facility] Comment on above: Order Comment: Speci men Type: BLOOD SPECIMENOrdering Facility: [facility] Address: [address] [place], [place] [id number] Performed By: #### 5 8410-2 ####[facility] LABIA [id number] [place] [address] [place] MCH (RBC) [Entitic mass] 24.7 pg Low 26.0-34.0 [facility] Comment on above: Order Comment: Speci men Type: BLOOD SPECIMENOrdering Facility: [facility] Address: [address] Performed By: #### 5 8410-2 ####[facility] LABIA [id number] [place] [place] [address] [place] MCHC (RBC) [Mass/Vol] 30.6 g/dL Normal 30.5-36.0 [facility] Comment on above: Order Comment: Speci men Type: BLOOD SPECIMENOrdering Facility: [facility] Address: [address] [place], [place] [address] Performed By: #### 5 8410-2 ####[facility] LABIA [id number] [place] [address] [place] MCV (RBC) [Entitic vol] 80.7 fL Normal 80.0-100.0 [facility] Comment on above: Order Comment: Speci men Type: BLOOD SPECIMENOrdering Facility: [facility] Address: [address] [place] [address] Performed By: #### 5 8410-2 ####[facility] LABIA [id number] [place] [address] [place] Nucleated RBC (Bld) [#/Vol] 10*3/uL Normal <0.01 [facility] Comment on above: Order Comment: Speci men Type: BLOOD SPECIMENOrdering Facility: [facility] Address: [address] [place] [address] Performed By: #### 5 8410-2 ####[facility] [id number] [place] [address] [place] Platelet mean volume (Bld) [Entitic vol] 9.8 fL Normal 9.0-12.7 [facility] Comment on above: Order Comment: Speci men Type: BLOOD SPECIMENOrdering Facility: [facility] Address: [address] [place], [place] [address] Performed By: #### 5 8410-2 ####[facility] LABIA [id number] [place] [address] [place] Platelets (Bld) [#/Vol] 215 10*3/uL Normal 150-400 [facility] Comment on above: Order Comment: Speci men Type: BLOOD SPECIMENOrdering Facility: [facility] Address: [address] [place], [place] [address] Performed By: #### 5 8410-2 ####[facility] LABIA [id number] [place] [address] [place] RBC (Bld) [#/Vol] 4.25 10*6/uL Normal 4.20-6.00 [facility] Comment on above: Order Comment: Speci men Type: BLOOD SPECIMENOrdering Facility: [facility] Address: [address] [place], [place] [address] Performed By: #### 5 8410-2 ####[facility] LABCLIA [id number] [place] [address] [place] WBC (Bld) [#/Vol] 7.96 10*3/uL Normal 3.70-11.00 [facility] Comment on above: Order Comment: Speci men Type: BLOOD SPECIMENOrdering Facility: [facility] Address: [address] [place], [place] [address] Performed By: #### 5 8410-2 ####[facility] LABCLIA [id number] [place] [address] [place] CONSULT PROGon 04-01-2023 CONSULT PROG Normal [facility] Comprehensive metabolic 2000 panelon 04-01-2023 Albumin [Mass/Vol] 3.4 g/dL Low 3.9-4.9 [facility] Comment on above: Order Comment: Speci men Type: BLOOD SPECIMENOrdering Facility: [facility] Address: [address] [place], [place] [address] Performed By: #### 2 4323-8 ####[facility] LABCLIA [id number] [place] [address] [place] ALP [Catalytic activity/Vol] 139 U/L High 38-113 [facility] Comment on above: Order Comment: Speci men Type: BLOOD SPECIMENOrdering Facility: [facility] Address: [address] [place], [place] [address] Performed By: #### 2 4323-8 ####[facility] LABCLIA [id number] [place] [address] [place] ALT [Catalytic activity/Vol] 21 U/L Normal 10-54 [facility] Comment on above: Order Comment: Speci men Type: BLOOD SPECIMENOrdering Facility: [facility] Address: [address] Performed By: #### 2 4323-8 ####[facility] LABCLIA [id number] [place] [address] [place] Anion gap [Moles/Vol] 14 mmol/L Normal 9-18 [facility] Comment on above: Order Comment: Speci men Type: BLOOD SPECIMENOrdering Facility: [facility] Address: [address] Performed By: #### 2 4323-8 ####[facility] LABCLIA [id number] [place] [address] [place] AST [Catalytic activity/Vol] 18 U/L Normal 14-40 [facility] Comment on above: Order Comment: Speci men Type: BLOOD SPECIMENOrdering Facility: [facility] Address: [address] Performed By: #### 2 4323-8 ####[facility] LABCLIA [id number] [place] [address] [place] Bilirubin [Mass/Vol] 1.9 mg/dL High 0.2-1.3 [facility] Comment on above: Order Comment: Speci men Type: BLOOD SPECIMENOrdering Facility: [facility] Address: [address] Performed By: #### 2 4323-8 ####[facility] LABCLIA [id number] [place] [address] [place] Calcium [Mass/Vol] 9.1 mg/dL Normal 8.5-10.2 [facility] Comment on above: Order Comment: Speci men Type: BLOOD SPECIMENOrdering Facility: [facility] Address: [address] Performed By: #### 2 4323-8 ####[facility] LABCLIA [id number] [place] [address] [place] Chloride [Moles/Vol] 95 mmol/L Low 97-105 [facility] Comment on above: Order Comment: Speci men Type: BLOOD SPECIMENOrdering Facility: [facility] Address: [address] [place] [address] Performed By: #### 2 4323-8 ####[facility] LABCLIA [id number] [place] [address] [place] CO2 [Moles/Vol] 22 mmol/L Normal 22-30 [facility] Comment on above: Order Comment: Speci men Type: BLOOD SPECIMENOrdering Facility: [facility] Address: [address] [place] [address] Performed By: #### 2 4323-8 ####[facility] LABCLIA [id number] [address] STATES OF [facility] Creatinine [Mass/Vol] 2.11 mg/dL High 0.73-1.22 [facility] Comment on above: Order Comment: Speci men Type: BLOOD SPECIMENOrdering Facility: [facility] Address: [address] [place] [address] Performed By: #### 2 4323-8 ####[facility] LABIA [id number] [address] OF [facility] Creatinine and Glomerular filtration rate.predicted panel (S/P/Bld) 34 mL/min/1.73m??? Low >=60 [facility] Comment on above: Order Comment: Speci men Type: BLOOD SPECIMENOrdering Facility: [facility] Address: [address] [place] [address] Result Comment: Syl mated Glomerular Filtration Rate [...] actual GFR. Performed By: #### 2 4323-8 ####[facility] LABCLIA [id number] [place] [address] [place] Glucose [Mass/Vol] 188 mg/dL High 74-99 [facility] Comment on above: Order Comment: Speci men Type: BLOOD SPECIMENOrdering Facility: [facility] Address: [address] [place], [place] [address] Result Comment: The [place] [employer] (ADA) provides guidance for cutoff [...] Standards of Medical Care in Diabetes 2016, [place] [employer]. Diabetes Care. 2016.39(Suppl 1). Performed By: #### 2 4323-8 ####[facility] LABCLIA [id number] [place] [address] [place] Potassium [Moles/Vol] 4.3 mmol/L Normal 3.7-5.1 [facility] Comment on above: Order Comment: Speci men Type: BLOOD SPECIMENOrdering Facility: [facility] Address: [address] [place] [address] Performed By: #### 2 4323-8 ####[facility] LABIA [id number] [place] [address] [place] Protein [Mass/Vol] 6.2 g/dL Low 6.3-8.0 [facility] Comment on above: Order Comment: Speci men Type: BLOOD SPECIMENOrdering Facility: [facility] Address: [address] Performed By: #### 2 4323-8 ####[facility] LABCLIA [id number] [place] [address] [place] Sodium [Moles/Vol] 131 mmol/L Low 136-144 [facility] Comment on above: Order Comment: Speci men Type: BLOOD SPECIMENOrdering Facility: [facility] Address: [address] [place] [address] Performed By: #### 2 4323-8 ####[facility] LABCLIA [id number] [place] [address] [place] Urea nitrogen [Mass/Vol] 51 mg/dL High 9-24 [facility] Comment on above: Order Comment: Speci men Type: BLOOD SPECIMENOrdering Facility: [facility] Address: [address] [place], [place] [address] Performed By: #### 2 4323-8 ####[facility] LABIA [id number] [place] [address] [place] CASE MANAGEMon 03-31-2023 CASE MANAGEM Normal [facility] CBC panel Auto (Bld)on 03-31 Erythrocyte distribution width (RBC) [Ratio] 20.6 % High 11.5-15.0 [facility] Comment on above: Order Comment: Speci men Type: BLOOD SPECIMENOrdering Facility: [facility] Address: [address] [place], [place] [address] Performed By: #### 5 8410-2 ####[facility] LABCLIA [id number] [place] [address] [place] Hematocrit (Bld) [Volume fraction] 35.6 % Low 39.0-51.0 [facility] Comment on above: Order Comment: Speci men Type: BLOOD SPECIMENOrdering Facility: [facility] Address: [address] [place], [place] [address] Performed By: #### 5 8410-2 ####[facility] LABIA [id number] [place] [address] [place] Hemoglobin (Bld) [Mass/Vol] 11.1 g/dL Low 13.0-17.0 [facility] Comment on above: Order Comment: Speci men Type: BLOOD SPECIMENOrdering Facility: [facility] Address: [address] [place] [address] Performed By: #### 5 8410-2 ####[facility] [id number] [place] [address] [place] MCH (RBC) [Entitic mass] 25.0 pg Low 26.0-34.0 [facility] Comment on above: Order Comment: Speci men Type: BLOOD SPECIMENOrdering Facility: [facility] Address: [address] [place], [place] [address] Performed By: #### 5 8410-2 ####[facility] [id number] [address] [place] MCHC (RBC) [Mass/Vol] 31.2 g/dL Normal 30.5-36.0 [facility] Comment on above: Order Comment: Speci men Type: BLOOD SPECIMENOrdering Facility: [facility] Address: [address] [place], [place] [address] Performed By: #### 5 8410-2 ####[facility] LABIA [id number] [address] [place] MCV (RBC) [Entitic vol] 80.2 fL Normal 80.0-100.0 [facility] Comment on above: Order Comment: Speci men Type: BLOOD SPECIMENOrdering Facility: [facility] Address: [address] [place], [place] [address] Performed By: #### 5 8410-2 ####[facility] LABIA [id number] [place] [address] [place] Nucleated RBC (Bld) [#/Vol] 0.03 10*3/uL High <0.01 [facility] Comment on above: Order Comment: Speci men Type: BLOOD SPECIMENOrdering Facility: [facility] Address: [address] [place] [address] Performed By: #### 5 8410-2 ####[facility] LABIA [id number] [place] [address] [place] Platelet mean volume (Bld) [Entitic vol] 9.7 fL Normal 9.0-12.7 [facility] Comment on above: Order Comment: Speci men Type: BLOOD SPECIMENOrdering Facility: [facility] Address: [address] [place] [address] Performed By: #### 5 8410-2 ####[facility] LABIA [id number] [place] [address] [place] Platelets (Bld) [#/Vol] 251 10*3/uL Normal 150-400 [facility] Comment on above: Order Comment: Speci men Type: BLOOD SPECIMENOrdering Facility: [facility] Address: [address] [place] [address] Performed By: #### 5 8410-2 ####[facility] LABIA [id number] [place] [address] [place] RBC (Bld) [#/Vol] 4.44 10*6/uL Normal 4.20-6.00 [facility] Comment on above: Order Comment: Speci men Type: BLOOD SPECIMENOrdering Facility: [facility] Address: [address] [place], [place] [address] Performed By: #### 5 8410-2 ####[facility] LABCLIA [id number] [place] [address] [place] WBC (Bld) [#/Vol] 7.47 10*3/uL Normal 3.70-11.00 [facility] Comment on above: Order Comment: Speci men Type: BLOOD SPECIMENOrdering Facility: [facility] Address: [address] [place] [address] Performed By: #### 5 8410-2 ####[facility] LABCLIA [id number] [place] [address] [place] CONSULT PROGon 03-31-2023 CONSULT PROG Normal [facility] Comprehensive metabolic 2000 panelon 03-31-2023 Albumin [Mass/Vol] 3.5 g/dL Low 3.9-4.9 [facility] Comment on above: Order Comment: Speci men Type: BLOOD SPECIMENOrdering Facility: [facility] Address: [address] [place] [address] Performed By: #### 2 4323-8 ####[facility] LABCLIA [id number] [place] [address] [place] ALP [Catalytic activity/Vol] 139 U/L High 38-113 [facility] Comment on above: Order Comment: Speci men Type: BLOOD SPECIMENOrdering Facility: [facility] Address: [address] [place] [address] Performed By: #### 2 4323-8 ####[facility] LABCLIA [id number] [place] [address] [place] ALT [Catalytic activity/Vol] 20 U/L Normal 10-54 [facility] Comment on above: Order Comment: Speci men Type: BLOOD SPECIMENOrdering Facility: [facility] Address: [address] [place], [place] [address] Performed By: #### 2 4323-8 ####[facility] LABCLIA [id number] [place] [address] [place] Anion gap [Moles/Vol] 12 mmol/L Normal 9-18 [facility] Comment on above: Order Comment: Speci men Type: BLOOD SPECIMENOrdering Facility: [facility] Address: [address] Performed By: #### 2 4323-8 ####[facility] LABCLIA [id number] [place] [address] [place] AST [Catalytic activity/Vol] 16 U/L Normal 14-40 [facility] Comment on above: Order Comment: Speci men Type: BLOOD SPECIMENOrdering Facility: [facility] Address: [address] [place], [place] [address] Performed By: #### 2 4323-8 ####[facility] LABCLIA [id number] [place] [address] [place] Bilirubin [Mass/Vol] 2.0 mg/dL High 0.2-1.3 [facility] Comment on above: Order Comment: Speci men Type: BLOOD SPECIMENOrdering Facility: [facility] Address: [address] Performed By: #### 2 4323-8 ####[facility] LABCLIA [id number] [place] [address] [place] Calcium [Mass/Vol] 9.3 mg/dL Normal 8.5-10.2 [facility] Comment on above: Order Comment: Speci men Type: BLOOD SPECIMENOrdering Facility: [facility] Address: [address] Performed By: #### 2 4323-8 ####[facility] LABCLIA [id number] [place] [address] [place] Chloride [Moles/Vol] 96 mmol/L Low 97-105 [facility] Comment on above: Order Comment: Speci men Type: BLOOD SPECIMENOrdering Facility: [facility] Address: [address] [place], [place] [address] Performed By: #### 2 4323-8 ####[facility] LABCLIA [id number] [place] [address] [place] CO2 [Moles/Vol] 24 mmol/L Normal 22-30 [facility] Comment on above: Order Comment: Speci men Type: BLOOD SPECIMENOrdering Facility: [facility] Address: [address] [place] [address] Performed By: #### 2 4323-8 ####[facility] LABCLIA [id number] [address] [place] Creatinine [Mass/Vol] 2.17 mg/dL High 0.73-1.22 [facility] Comment on above: Order Comment: Speci men Type: BLOOD SPECIMENOrdering Facility: [facility] Address: [address] [place] [address] Performed By: #### 2 4323-8 ####[facility] LABIA [id number] [address] Creatinine and Glomerular filtration rate.predicted panel (S/P/Bld) 33 mL/min/1.73m??? Low >=60 [facility] Comment on above: Order Comment: Speci men Type: BLOOD SPECIMENOrdering Facility: [facility] Address: [address] [place] [address] Result Comment: Syl mated Glomerular Filtration Rate [...] actual GFR. Performed By: #### 2 4323-8 ####[facility] LABCLIA [id number] [address] [place] Glucose [Mass/Vol] 186 mg/dL High 74-99 [facility] Comment on above: Order Comment: Speci men Type: BLOOD SPECIMENOrdering Facility: [facility] Address: [address] [place] [address] Result Comment: The [place] [employer] (ADA) provides guidance for cutoff [...] Standards of Medical Care in Diabetes 2016, [place] [employer]. Diabetes Care. 2016.39(Suppl 1). Performed By: #### 2 4323-8 ####[facility] LABIA [id number] [place] [address] [place] Potassium [Moles/Vol] 4.4 mmol/L Normal 3.7-5.1 [facility] Comment on above: Order Comment: Speci men Type: BLOOD SPECIMENOrdering Facility: [facility] Address: [address] [place] [address] Performed By: #### 2 4323-8 ####[facility] [id number] [place] [address] [place] Protein [Mass/Vol] 6.3 g/dL Normal 6.3-8.0 [facility] Comment on above: Order Comment: Speci men Type: BLOOD SPECIMENOrdering Facility: [facility] Address: [address] [place] [address] Performed By: #### 2 4323-8 ####[facility] LABIA [id number] [place] [address] [place] Sodium [Moles/Vol] 132 mmol/L Low 136-144 [facility] Comment on above: Order Comment: Speci men Type: BLOOD SPECIMENOrdering Facility: [facility] Address: [address] [place] [address] Performed By: #### 2 4323-8 ####[facility] LABCLIA [id number] [place] [address] [place] Urea nitrogen [Mass/Vol] 50 mg/dL High 9- [facility] Comment on above: Order Comment: Speci men Type: BLOOD SPECIMENOrdering Facility: [facility] Address: [address] [place] [address] Performed By: #### 2 4323-8 ####[facility] LABCLIA [id number] [place] [address] [place] ECG COMPLETEon 03-31-2023 ECG COMPLETE Normal [facility] PT EDon 03-31-2023 PT ED Normal [facility] SURGICAL PATHOLOGYon 023 CASE REPORT Normal [facility] Comment on above: Order Comment: Speci men Type: DEVICE SPECIMENOrdering Facility: [facility] Address: [address] [place] [address] Result Comment: Surg ica Pathology Report Case: [id number] Provider: Chandni Vitale MD Collected: 03/31/2023 03:43 PMOrdering Location: [facility] Received: 03/31/2023 06:17 PMPathologist: Nichol Best MDSpecimen: HARDWARE, ICD Performed By: #### S ####[facility] LABCLIA [id number] [place] [address] [place] CLINICAL HISTORY Normal [facility] Comment on above: Order Comment: Speci men Type: DEVICE SPECIMENOrdering Facility: [facility] Address: [address] [place] [address] Result Comment: Pre- op diagnosis:Acute decompensated heart failure (HCC) [I50.9]Ischemic cardiomyopathy [I25.5] Performed By: #### S ####[facility] LABCLIA [id number] [address] [place] FINAL DIAGNOSIS Normal [facility] Comment on above: Order Comment: Speci men Type: DEVICE SPECIMENOrdering Facility: [facility] Address: [address] [place] [address] Result Comment: A. I mplantable cardioverter defibrillator, removal:- Pulse generator (gross examination only).CT/TLA 04/03/2023 Performed By: #### S ####[facility] LABCLIA [id number] [address] OF [facility] FINAL PERFORMING LAB Normal [facility] Comment on above: Order Comment: Speci men Type: DEVICE SPECIMENOrdering Facility: [facility] Address: [address] [place] [address] Result Comment: Diag nostic interpretation performed at [facility], [facility] [place] [address] CLIA# [id number] Director: Jarrod Izquierdo M.D. Performed By: #### S ####[facility] LABIA [id number] [address] [place] GROSS DESCRIPTION A. HARDWARE Normal [facility] Comment on above: Order Comment: Speci men Type: DEVICE SPECIMENOrdering Facility: [facility] Address: [address] [place] [address] Result Comment: Rece ived in formalin labeled with hardware, ICD is a grossly unremarkable pulse generator battery measuring 7.0 x 5.5 x 1.1 cm. There are no defects present. Inscribed on the device is [employer] Dynagen ICD model D150 type VVIR SN [id number] . There is no attached soft tissue present. No sections are submitted. The specimen is reviewed with Dr. Best.TLA April 03, 2023 12:57 PMGross examination performed at [facility], [address] [place] [address] Performed By: #### S ####[facility] LABIA [id number] [place] [address] [place] CBC panel Auto (Bld)on 03-30 Erythrocyte distribution width (RBC) [Ratio] 20.5 % High 11.5-15.0 [facility] Comment on above: Order Comment: Speci men Type: BLOOD SPECIMENOrdering Facility: [facility] Address: [address] [place] [address] Performed By: #### 5 8410-2 ####[facility] LABIA [id number] [address] [place] Hematocrit (Bld) [Volume fraction] 35.3 % Low 39.0-51.0 [facility] Comment on above: Order Comment: Speci men Type: BLOOD SPECIMENOrdering Facility: [facility] Address: [address] [place] [address] Performed By: #### 5 8410-2 ####[facility] LABIA [id number] [address] [place] Hemoglobin (Bld) [Mass/Vol] 11.0 g/dL Low 13.0-17.0 [facility] Comment on above: Order Comment: Speci men Type: BLOOD SPECIMENOrdering Facility: [facility] Address: [address] [place] [address] Performed By: #### 5 8410-2 ####[facility] LABIA [id number] [place] [address] [place] MCH (RBC) [Entitic mass] 24.8 pg Low 26.0-34.0 [facility] Comment on above: Order Comment: Speci men Type: BLOOD SPECIMENOrdering Facility: [facility] Address: [address] [place] [address] Performed By: #### 5 8410-2 ####[facility] LABCLIA [id number] [address] [place] MCHC (RBC) [Mass/Vol] 31.2 g/dL Normal 30.5-36.0 [facility] Comment on above: Order Comment: Speci men Type: BLOOD SPECIMENOrdering Facility: [facility] Address: [address] [place], [place] [address] Performed By: #### 5 8410-2 ####[facility] LABIA [id number] [address] [place] MCV (RBC) [Entitic vol] 79.5 fL Low 80.0-100.0 [facility] Comment on above: Order Comment: Speci men Type: BLOOD SPECIMENOrdering Facility: [facility] Address: [address] [place], [place] [address] Performed By: #### 5 8410-2 ####[facility] LABIA [id number] [place] [address] [place] Nucleated RBC (Bld) [#/Vol] 0.02 10*3/uL High <0.01 [facility] Comment on above: Order Comment: Speci men Type: BLOOD SPECIMENOrdering Facility: [facility] Address: [address] [place], [place] [address] Performed By: #### 5 8410-2 ####[facility] LABIA [id number] [address] [place] Platelet mean volume (Bld) [Entitic vol] 9.6 fL Normal 9.0-12.7 [facility] Comment on above: Order Comment: Speci men Type: BLOOD SPECIMENOrdering Facility: [facility] Address: [address] [place], [place] [address] Performed By: #### 5 8410-2 ####[facility] LABIA [id number] [place] [address] [place] Platelets (Bld) [#/Vol] 243 10*3/uL Normal 150-400 [facility] Comment on above: Order Comment: Speci men Type: BLOOD SPECIMENOrdering Facility: [facility] Address: [address] Performed By: #### 5 8410-2 ####[facility] LABIA [id number] [place] [address] [place] RBC (Bld) [#/Vol] 4.44 10*6/uL Normal 4.20-6.00 [facility] Comment on above: Order Comment: Speci men Type: BLOOD SPECIMENOrdering Facility: [facility] Address: [address] Performed By: #### 5 8410-2 ####[facility] [id number] [place] [address] [place] WBC (Bld) [#/Vol] 7.93 10*3/uL Normal 3.70-11.00 [facility] Comment on above: Order Comment: Speci men Type: BLOOD SPECIMENOrdering Facility: [facility] Address: [address] [place], [place] [address] Performed By: #### 5 8410-2 ####[facility] [id number] [place] [address] [place] CONSULTon 03-30-2023 CONSULT Normal [facility] CONSULT PROGon 03-30-2023 CONSULT PROG Normal [facility] Comprehensive metabolic 2000 panelon 03-30-2023 Albumin [Mass/Vol] 3.5 g/dL Low 3.9-4.9 [facility] Comment on above: Order Comment: Speci men Type: BLOOD SPECIMENOrdering Facility: [facility] Address: [address] [place], [place] [address] Performed By: #### 2 4323-8 ####[facility] LABIA [id number] [place] [address] [place] ALP [Catalytic activity/Vol] 137 U/L High 38-113 [facility] Comment on above: Order Comment: Speci men Type: BLOOD SPECIMENOrdering Facility: [facility] Address: [address] [place] [address] Performed By: #### 2 4323-8 ####[facility] LABCLIA [id number] [place] [address] [place] ALT [Catalytic activity/Vol] 23 U/L Normal 10-54 [facility] Comment on above: Order Comment: Speci men Type: BLOOD SPECIMENOrdering Facility: [facility] Address: [address] Performed By: #### 2 4323-8 ####[facility] LABCLIA [id number] [place] [address] [place] Anion gap [Moles/Vol] 14 mmol/L Normal 9-18 [facility] Comment on above: Order Comment: Speci men Type: BLOOD SPECIMENOrdering Facility: [facility] Address: [address] Performed By: #### 2 4323-8 ####[facility] LABCLIA [id number] [address] [place] AST [Catalytic activity/Vol] 24 U/L Normal 14-40 [facility] Comment on above: Order Comment: Speci men Type: BLOOD SPECIMENOrdering Facility: [facility] Address: [address] [place] [id number] Performed By: #### 2 4323-8 ####[facility] LABCLIA [id number] [place] [address] [place] Bilirubin [Mass/Vol] 1.6 mg/dL High 0.2-1.3 [facility] Comment on above: Order Comment: Speci men Type: BLOOD SPECIMENOrdering Facility: [facility] Address: [address] Performed By: #### 2 4323-8 ####[facility] LABCLIA [id number] [place] [id number] [place] Calcium [Mass/Vol] 9.5 mg/dL Normal 8.5-10.2 [facility] Comment on above: Order Comment: Speci men Type: BLOOD SPECIMENOrdering Facility: [facility] Address: [address] [place] [address] Performed By: #### 2 4323-8 ####[facility] LABCLIA [id number] [place] [address] [place] Chloride [Moles/Vol] 95 mmol/L Low 97-105 [facility] Comment on above: Order Comment: Speci men Type: BLOOD SPECIMENOrdering Facility: [facility] Address: [address] [place] [address] Performed By: #### 2 4323-8 ####[facility] LABCLIA [id number] [place] [address] [place] CO2 [Moles/Vol] 23 mmol/L Normal 22-30 [facility] Comment on above: Order Comment: Speci men Type: BLOOD SPECIMENOrdering Facility: [facility] Address: [address] [place] [address] Performed By: #### 2 4323-8 ####[facility] LABCLIA [id number] [place] [address] [place] Creatinine [Mass/Vol] 2.12 mg/dL High 0.73-1.22 [facility] Comment on above: Order Comment: Speci men Type: BLOOD SPECIMENOrdering Facility: [facility] Address: [address] [place] [address] Performed By: #### 2 4323-8 ####[facility] LABCLIA [id number] [place] [address] [place] Creatinine and Glomerular filtration rate.predicted panel (S/P/Bld) 34 mL/min/1.73m??? Low >=60 [facility] Comment on above: Order Comment: Speci men Type: BLOOD SPECIMENOrdering Facility: [facility] Address: [address] [id number] Result Comment: Syl mated Glomerular Filtration Rate [...] actual GFR. Performed By: #### 2 4323-8 ####[facility] LABIA [id number] [place] [address] [place] Glucose [Mass/Vol] 145 mg/dL High 74-99 [facility] Comment on above: Order Comment: Joseline clemons Type: BLOOD SPECIMENOrdering Facility: [facility] Address: [address] [place] [place] [address] Result Comment: The [place] [employer] (ADA) provides guidance for cutoff [...] Standards of Medical Care in Diabetes 2016, [place] [employer]. Diabetes Care. 2016.39(Suppl 1). Performed By: #### 2 4323-8 ####[facility] LABIA [id number] [place] [address] [place] Potassium [Moles/Vol] 4.5 mmol/L Normal 3.7-5.1 [facility] Comment on above: Order Comment: Joseline clemons Type: BLOOD SPECIMENOrdering Facility: [facility] Address: [address] Performed By: #### 2 4323-8 ####[facility] LABCLIA [id number] [place] [address] [place] Protein [Mass/Vol] 6.5 g/dL Normal 6.3-8.0 [facility] Comment on above: Order Comment: Speci men Type: BLOOD SPECIMENOrdering Facility: [facility] Address: [address] [place] [address] Performed By: #### 2 4323-8 ####[facility] LABCLIA [id number] [place] [address] [place] Sodium [Moles/Vol] 132 mmol/L Low 136-144 [facility] Comment on above: Order Comment: Speci men Type: BLOOD SPECIMENOrdering Facility: [facility] Address: [address] [place] [address] Performed By: #### 2 4323-8 ####[facility] LABCLIA [id number] [place] [address] [place] Urea nitrogen [Mass/Vol] 54 mg/dL High 9-24 [facility] Comment on above: Order Comment: Speci men Type: BLOOD SPECIMENOrdering Facility: [facility] Address: [address] [place] [address] Performed By: #### 2 4323-8 ####[facility] LABCLIA [id number] [place] [address] [place] NUTRITIONon 03-30-2023 NUTRITION Normal [facility] TYPE + SCREENon 03-30-2023 ABO A Normal [facility] Comment on above: Order Comment: Speci men Type: BLOOD SPECIMENOrdering Facility: [facility] Address: [address] [place] [address] Performed By: #### T SCR ####[facility] BLO[facility] BANKCLIA [id number] [place] [address] [place] HISTORICAL AB SCR STATUS Negative Normal [facility] Comment on above: Order Comment: Speci men Type: BLOOD SPECIMENOrdering Facility: [facility] Address: [address] Performed By: #### T SCR ####[facility] BANKCLIA [id number] [address] Rh Nom (Bld) Positive Normal [facility] Comment on above: Order Comment: Speci men Type: BLOOD SPECIMENOrdering Facility: [facility] Address: [address] [place] [address] Performed By: #### T SCR ####[facility] BANKCLIA [id number] [address] TYPE AND SCREEN EXPIRATION 04/02/2023 23:59 Normal [facility] Comment on above: Order Comment: Speci men Type: BLOOD SPECIMENOrdering Facility: [facility] Address: [address] [place], [place] [address] Performed By: #### T SCR ####[facility] BLOOD BANKCLIA [id number] [address] OF [facility] CASE MANAGEMon 03-29-2023 CASE MANAGEM Normal [facility] CBC panel Auto (Bld)on 03-29 Erythrocyte distribution width (RBC) [Ratio] 21.1 % High 11.5-15.0 [facility] Comment on above: Order Comment: Speci men Type: BLOOD SPECIMENOrdering Facility: [facility] Address: [address] [place], [place] [address] Performed By: #### 5 8410-2 ####[facility] LABCLIA [id number] [address] Hematocrit (Bld) [Volume fraction] 36.8 % Low 39.0-51.0 [facility] Comment on above: Order Comment: Speci men Type: BLOOD SPECIMENOrdering Facility: [facility] Address: [address] [place], [place] [address] Performed By: #### 5 8410-2 ####[facility] LABIA [id number] [place] [address] [place] Hemoglobin (Bld) [Mass/Vol] 11.4 g/dL Low 13.0-17.0 [facility] Comment on above: Order Comment: Speci men Type: BLOOD SPECIMENOrdering Facility: [facility] Address: [address] [place] [address] Performed By: #### 5 8410-2 ####[facility] LABIA [id number] [place] [address] [place] MCH (RBC) [Entitic mass] 25.1 pg Low 26.0-34.0 [facility] Comment on above: Order Comment: Speci men Type: BLOOD SPECIMENOrdering Facility: [facility] Address: [address] [place] [address] Performed By: #### 5 8410-2 ####[facility] [id number] [place] [address] [place] MCHC (RBC) [Mass/Vol] 31.0 g/dL Normal 30.5-36.0 [facility] Comment on above: Order Comment: Speci men Type: BLOOD SPECIMENOrdering Facility: [facility] Address: [address] [place], [place] [address] Performed By: #### 5 8410-2 ####[facility] LABIA [id number] [address] [place] MCV (RBC) [Entitic vol] 80.9 fL Normal 80.0-100.0 [facility] Comment on above: Order Comment: Speci men Type: BLOOD SPECIMENOrdering Facility: [facility] Address: [address] [place], [place] [address] Performed By: #### 5 8410-2 ####[facility] LABIA [id number] [place] [address] [place] Nucleated RBC (Bld) [#/Vol] 0.02 10*3/uL High <0.01 [facility] Comment on above: Order Comment: Speci men Type: BLOOD SPECIMENOrdering Facility: [facility] Address: [address] [place] [address] Performed By: #### 5 8410-2 ####[facility] LABCLIA [id number] [place] [address] [place] Platelet mean volume (Bld) [Entitic vol] 9.8 fL Normal 9.0-12.7 [facility] Comment on above: Order Comment: Speci men Type: BLOOD SPECIMENOrdering Facility: [facility] Address: [address] [place] [address] Performed By: #### 5 8410-2 ####[facility] LABIA [id number] [place] [address] [place] Platelets (Bld) [#/Vol] 231 10*3/uL Normal 150-400 [facility] Comment on above: Order Comment: Speci men Type: BLOOD SPECIMENOrdering Facility: [facility] Address: [address] [place] [address] Performed By: #### 5 8410-2 ####[facility] LABIA [id number] [place] [address] [place] RBC (Bld) [#/Vol] 4.55 10*6/uL Normal 4.20-6.00 [facility] Comment on above: Order Comment: Speci men Type: BLOOD SPECIMENOrdering Facility: [facility] Address: [address] [place], [place] [address] Performed By: #### 5 8410-2 ####[facility] LABCLIA [id number] [place] [address] [place] WBC (Bld) [#/Vol] 8.72 10*3/uL Normal 3.70-11.00 [facility] Comment on above: Order Comment: Speci men Type: BLOOD SPECIMENOrdering Facility: [facility] Address: [address] [place] [address] Performed By: #### 5 8410-2 ####[facility] LABCLIA [id number] [place] [address] [place] CONSULT PROGon 03-29-2023 CONSULT PROG Normal [facility] Comprehensive metabolic 2000 panelon 03-29-2023 Albumin [Mass/Vol] 3.5 g/dL Low 3.9-4.9 [facility] Comment on above: Order Comment: Speci men Type: BLOOD SPECIMENOrdering Facility: [facility] Address: [address] [place] [address] Performed By: #### 2 4323-8 ####[facility] LABCLIA [id number] [place] [address] [place] ALP [Catalytic activity/Vol] 145 U/L High 38-113 [facility] Comment on above: Order Comment: Speci men Type: BLOOD SPECIMENOrdering Facility: [facility] Address: [address] [place] [address] Performed By: #### 2 4323-8 ####[facility] LABCLIA [id number] [place] [address] [place] ALT [Catalytic activity/Vol] 31 U/L Normal 10-54 [facility] Comment on above: Order Comment: Speci men Type: BLOOD SPECIMENOrdering Facility: [facility] Address: [address] [place], [place] [address] Performed By: #### 2 4323-8 ####[facility] LABCLIA [id number] [place] [address] [place] Anion gap [Moles/Vol] 16 mmol/L Normal 9-18 [facility] Comment on above: Order Comment: Speci men Type: BLOOD SPECIMENOrdering Facility: [facility] Address: [address] Performed By: #### 2 4323-8 ####[facility] LABCLIA [id number] [place] [address] [place] AST [Catalytic activity/Vol] 24 U/L Normal 14-40 [facility] Comment on above: Order Comment: Speci men Type: BLOOD SPECIMENOrdering Facility: [facility] Address: [address] [place], [place] [address] Performed By: #### 2 4323-8 ####[facility] LABCLIA [id number] [place] [address] [place] Bilirubin [Mass/Vol] 1.8 mg/dL High 0.2-1.3 [facility] Comment on above: Order Comment: Speci men Type: BLOOD SPECIMENOrdering Facility: [facility] Address: [address] Performed By: #### 2 4323-8 ####[facility] LABCLIA [id number] [place] [address] [place] Calcium [Mass/Vol] 9.3 mg/dL Normal 8.5-10.2 [facility] Comment on above: Order Comment: Speci men Type: BLOOD SPECIMENOrdering Facility: [facility] Address: [address] Performed By: #### 2 4323-8 ####[facility] LABCLIA [id number] [place] [address] [place] Chloride [Moles/Vol] 95 mmol/L Low 97-105 [facility] Comment on above: Order Comment: Speci men Type: BLOOD SPECIMENOrdering Facility: [facility] Address: [address] [place], [place] [address] Performed By: #### 2 4323-8 ####[facility] LABCLIA [id number] [place] [address] [place] CO2 [Moles/Vol] 21 mmol/L Low 22-30 [facility] Comment on above: Order Comment: Speci men Type: BLOOD SPECIMENOrdering Facility: [facility] Address: [address] [address] Performed By: #### 2 4323-8 ####[facility] LABCLIA [id number] [address] [place] Creatinine [Mass/Vol] 2.15 mg/dL High 0.73-1.22 [facility] Comment on above: Order Comment: Speci men Type: BLOOD SPECIMENOrdering Facility: [facility] Address: [address] [place] [address] Performed By: #### 2 4323-8 ####[facility] LABIA [id number] [address] Creatinine and Glomerular filtration rate.predicted panel (S/P/Bld) 33 mL/min/1.73m??? Low >=60 [facility] Comment on above: Order Comment: Speci men Type: BLOOD SPECIMENOrdering Facility: [facility] Address: [address] [place] [address] Result Comment: Syl mated Glomerular Filtration Rate [...] actual GFR. Performed By: #### 2 4323-8 ####[facility] LABCLIA [id number] [address] [place] Glucose [Mass/Vol] 212 mg/dL High 74-99 [facility] Comment on above: Order Comment: Speci men Type: BLOOD SPECIMENOrdering Facility: [facility] Address: [address] [address] Result Comment: The [place] [employer] (ADA) provides guidance for cutoff [...] Standards of Medical Care in Diabetes 2016, [place] [employer]. Diabetes Care. 2016.39(Suppl 1). Performed By: #### 2 4323-8 ####[facility] LABIA [id number] [place] [address] [place] Potassium [Moles/Vol] 4.4 mmol/L Normal 3.7-5.1 [facility] Comment on above: Order Comment: Speci men Type: BLOOD SPECIMENOrdering Facility: [facility] Address: [address] [address] Performed By: #### 2 4323-8 ####[facility] LABIA [id number] [place] [address] [place] Protein [Mass/Vol] 6.4 g/dL Normal 6.3-8.0 [facility] Comment on above: Order Comment: Speci men Type: BLOOD SPECIMENOrdering Facility: [facility] Address: [address] [address] Performed By: #### 2 4323-8 ####[facility] LABIA [id number] [place] [address] [place] Sodium [Moles/Vol] 132 mmol/L Low 136-144 [facility] Comment on above: Order Comment: Speci men Type: BLOOD SPECIMENOrdering Facility: [facility] Address: [address] [address] Performed By: #### 2 4323-8 ####[facility] LABIA [id number] [address] [place] Urea nitrogen [Mass/Vol] 62 mg/dL High 9-24 [facility] Comment on above: Order Comment: Joseline clemons Type: BLOOD SPECIMENOrdering Facility: [facility] Address: [address] [place] [address] Performed By: #### 2 4323-8 ####[facility] LABIA [id number] [place] [address] [place] Fact Xa PPP-aCncon Coagulation factor X activated act Coag Qn (PPP) 0.20 IU/mL High <0.10 [facility] Comment on above: Order Comment: Joseline clemons Type: BLOOD SPECIMENOrdering Facility: [facility] Address: [address] [place] [address] Result Comment: The recommended therapeutic range for treatment of venous and arterial thrombosis with intravenous unfractionated heparin is an anti Xa activity level of 0.3 to 0.7 IU/mL. In patients with concomitant therapy with thrombolytic agents and/or platelet glycoprotein IIb/IIIa antagonists, the recommended therapeutic range is an anti Xa activity level of 0.2 to 0.5 IU/mL. Performed By: #### 3 217-7 ####[facility] [id number] [address] [place] Coagulation factor X activated act Coag Qn (PPP) 0.14 IU/mL High <0.10 [facility] Comment on above: Order Comment: Joseline clemons Type: BLOOD SPECIMENOrdering Facility: [facility] Address: [address] [place] [address] Result Comment: The recommended therapeutic range for treatment of venous and arterial thrombosis with intravenous unfractionated heparin is an anti Xa activity level of 0.3 to 0.7 IU/mL. In patients with concomitant therapy with thrombolytic agents and/or platelet glycoprotein IIb/IIIa antagonists, the recommended therapeutic range is an anti Xa activity level of 0.2 to 0.5 IU/mL. Performed By: #### 3 217-7 ####[facility] LABIA [id number] [place] [address] [place] PTT, ANTICOAGULANT THERAPYon 03-29-2023 aPTT Coag (PPP) [Time] 61.0 s High 23.0-32.4 [facility] Comment on above: Order Comment: Speci men Type: BLOOD SPECIMENOrdering Facility: [facility] Address: [address] [place] [address] Performed By: #### P TTAC ####[facility] [id number] [address] STATES OF [facility] aPTT Coag (PPP) [Time] 32.9 s High 23.0-32.4 [facility] Comment on above: Order Comment: Speci men Type: BLOOD SPECIMENOrdering Facility: [facility] Address: [address] [place] [address] Performed By: #### P TTAC, 32817-5 ####[facility] [id number] [address] [place] aPTT Coag (PPP) [Time] 123.5 s High 23.0-32.4 [facility] Comment on above: Order Comment: Speci men Type: BLOOD SPECIMENOrdering Facility: [facility] Address: [address] [place] [address] Result Comment: Samp le checked for clot. Result rechecked. Performed By: #### P TTAC ####[facility] [id number] [address] [place] aPTT Coag (PPP) [Time] s High 23.0-32.4 [facility] Comment on above: Order Comment: Speci men Type: BLOOD SPECIMENOrdering Facility: [facility] Address: [address] [place] [address] Result Comment: Samp le checked for clot.Result rechecked. Performed By: #### P TTAC ####[facility] LABCLIA [id number] [place] [address] [place] Basic metabolic 2000 panelon 03-28-2023 Anion gap [Moles/Vol] 12 mmol/L Normal 9-18 [facility] Comment on above: Order Comment: Speci men Type: BLOOD SPECIMENOrdering Facility: [facility] Address: [address] Performed By: #### 2 4321-2 ####[facility] LABCLIA [id number] [place] [address] [place] Calcium [Mass/Vol] 9.6 mg/dL Normal 8.5-10.2 [facility] Comment on above: Order Comment: Speci men Type: BLOOD SPECIMENOrdering Facility: [facility] Address: [address] Performed By: #### 2 4321-2 ####[facility] LABCLIA [id number] [place] [address] [place] Chloride [Moles/Vol] 94 mmol/L Low 97-105 [facility] Comment on above: Order Comment: Speci men Type: BLOOD SPECIMENOrdering Facility: [facility] Address: [address] Performed By: #### 2 4321-2 ####[facility] LABCLIA [id number] [place] [address] [place] CO2 [Moles/Vol] 25 mmol/L Normal 22-30 [facility] Comment on above: Order Comment: Speci men Type: BLOOD SPECIMENOrdering Facility: [facility] Address: [address] Performed By: #### 2 4321-2 ####[facility] LABCLIA [id number] [address] Creatinine [Mass/Vol] 2.35 mg/dL High 0.73-1.22 [facility] Comment on above: Order Comment: Joseline clemons Type: BLOOD SPECIMENOrdering Facility: [facility] Address: [address] [address] Performed By: #### 2 4321-2 ####[facility] LABIA [id number] [address] Creatinine and Glomerular filtration rate.predicted panel (S/P/Bld) 30 mL/min/1.73m??? Low >=60 [facility] Comment on above: Order Comment: Joseline clemons Type: BLOOD SPECIMENOrdering Facility: [facility] Address: [address] [place] [address] Result Comment: Syl mated Glomerular Filtration Rate [...] actual GFR. Performed By: #### 2 4321-2 ####[facility] LABCLIA [id number] [address] [place] Glucose [Mass/Vol] 172 mg/dL High 74-99 [facility] Comment on above: Order Comment: Joseline clemons Type: BLOOD SPECIMENOrdering Facility: [facility] Address: [address] [address] Result Comment: The [place] [employer] (ADA) provides guidance for cutoff [...] Standards of Medical Care in Diabetes 2016, [place] [employer]. Diabetes Care. 2016.39(Suppl 1). Performed By: #### 2 4321-2 ####[facility] LABCLIA [id number] [place] [address] [place] Potassium [Moles/Vol] 4.2 mmol/L Normal 3.7-5.1 [facility] Comment on above: Order Comment: Speci men Type: BLOOD SPECIMENOrdering Facility: [facility] Address: [address] [place] [address] Performed By: #### 2 4321-2 ####[facility] LABIA [id number] [place] [address] [place] Sodium [Moles/Vol] 131 mmol/L Low 136-144 [facility] Comment on above: Order Comment: Speci men Type: BLOOD SPECIMENOrdering Facility: [facility] Address: [address] [address] Performed By: #### 2 4321-2 ####[facility] LABIA [id number] [place] [address] [place] Urea nitrogen [Mass/Vol] 62 mg/dL High 9-24 [facility] Comment on above: Order Comment: Speci men Type: BLOOD SPECIMENOrdering Facility: [facility] Address: [address] [address] Performed By: #### 2 4321-2 ####[facility] LABIA [id number] [place] [address] [place] CARD CATH DIAGNOSTICon 03-28 CARD CATH DIAGNOSTIC [facility] CBC panel Auto (Bld)on 03-28 Erythrocyte distribution width (RBC) [Ratio] 20.6 % High 11.5-15.0 [facility] Comment on above: Order Comment: Speci men Type: BLOOD SPECIMENOrdering Facility: [facility] Address: [address] Performed By: #### 5 8410-2 ####[facility] [id number] [address] [place] Hematocrit (Bld) [Volume fraction] 35.9 % Low 39.0-51.0 [facility] Comment on above: Order Comment: Speci men Type: BLOOD SPECIMENOrdering Facility: [facility] Address: [address] Performed By: #### 5 8410-2 ####[facility] [id number] [place] [address] [place] Hemoglobin (Bld) [Mass/Vol] 11.1 g/dL Low 13.0-17.0 [facility] Comment on above: Order Comment: Speci men Type: BLOOD SPECIMENOrdering Facility: [facility] Address: [address] [place], [place] [address] Performed By: #### 5 8410-2 ####[facility] [id number] [place] [address] [place] MCH (RBC) [Entitic mass] 24.7 pg Low 26.0-34.0 [facility] Comment on above: Order Comment: Speci men Type: BLOOD SPECIMENOrdering Facility: [facility] Address: [address] Performed By: #### 5 8410-2 ####[facility] [id number] [place] [address] [place] MCHC (RBC) [Mass/Vol] 30.9 g/dL Normal 30.5-36.0 [facility] Comment on above: Order Comment: Speci men Type: BLOOD SPECIMENOrdering Facility: [facility] Address: [address] [place], [place] [address] Performed By: #### 5 8410-2 ####[facility] LABIA [id number] [place] [address] [place] MCV (RBC) [Entitic vol] 80.0 fL Normal 80.0-100.0 [facility] Comment on above: Order Comment: Speci men Type: BLOOD SPECIMENOrdering Facility: [facility] Address: [address] [place], [place] [address] Performed By: #### 5 8410-2 ####[facility] LABIA [id number] [place] [address] [place] Nucleated RBC (Bld) [#/Vol] 10*3/uL Normal <0.01 [facility] Comment on above: Order Comment: Speci men Type: BLOOD SPECIMENOrdering Facility: [facility] Address: [address] [place] [address] Performed By: #### 5 8410-2 ####[facility] LABIA [id number] [place] [address] [place] Platelet mean volume (Bld) [Entitic vol] 9.4 fL Normal 9.0-12.7 [facility] Comment on above: Order Comment: Speci men Type: BLOOD SPECIMENOrdering Facility: [facility] Address: [address] [place], [place] [address] Performed By: #### 5 8410-2 ####[facility] LABIA [id number] [place] [address] [place] Platelets (Bld) [#/Vol] 224 10*3/uL Normal 150-400 [facility] Comment on above: Order Comment: Speci men Type: BLOOD SPECIMENOrdering Facility: [facility] Address: [address] [place], [place] [address] Performed By: #### 5 8410-2 ####[facility] LABIA [id number] [place] [address] [place] RBC (Bld) [#/Vol] 4.49 10*6/uL Normal 4.20-6.00 [facility] Comment on above: Order Comment: Speci men Type: BLOOD SPECIMENOrdering Facility: [facility] Address: [address] [place], [place] [address] Performed By: #### 5 8410-2 ####[facility] LABCLIA [id number] [place] [address] [place] WBC (Bld) [#/Vol] 7.95 10*3/uL Normal 3.70-11.00 [facility] Comment on above: Order Comment: Speci men Type: BLOOD SPECIMENOrdering Facility: [facility] Address: [address] [place], [place] [address] Performed By: #### 5 8410-2 ####[facility] LABCLIA [id number] [place] [address] [place] CONSULT PROGon 03-28-2023 CONSULT PROG Normal [facility] Comprehensive metabolic 2000 panelon 03-28-2023 Albumin [Mass/Vol] 3.3 g/dL Low 3.9-4.9 [facility] Comment on above: Order Comment: Speci men Type: BLOOD SPECIMENOrdering Facility: [facility] Address: [address] [place], [place] [address] Performed By: #### 2 4323-8 ####[facility] LABCLIA [id number] [place] [address] [place] ALP [Catalytic activity/Vol] 139 U/L High 38-113 [facility] Comment on above: Order Comment: Speci men Type: BLOOD SPECIMENOrdering Facility: [facility] Address: [address] [place], [place] [address] Performed By: #### 2 4323-8 ####[facility] LABCLIA [id number] [place] [address] [place] ALT [Catalytic activity/Vol] 29 U/L Normal 10-54 [facility] Comment on above: Order Comment: Speci men Type: BLOOD SPECIMENOrdering Facility: [facility] Address: [address] [address] Performed By: #### 2 4323-8 ####[facility] LABCLIA [id number] [place] [address] [place] Anion gap [Moles/Vol] 12 mmol/L Normal 9-18 [facility] Comment on above: Order Comment: Speci men Type: BLOOD SPECIMENOrdering Facility: [facility] Address: [address] [place] [address] Performed By: #### 2 4323-8 ####[facility] LABCLIA [id number] [place] [address] [place] AST [Catalytic activity/Vol] 24 U/L Normal 14-40 [facility] Comment on above: Order Comment: Speci men Type: BLOOD SPECIMENOrdering Facility: [facility] Address: [address] Performed By: #### 2 4323-8 ####[facility] LABCLIA [id number] [place] [address] [place] Bilirubin [Mass/Vol] 2.1 mg/dL High 0.2-1.3 [facility] Comment on above: Order Comment: Speci men Type: BLOOD SPECIMENOrdering Facility: [facility] Address: [address] Performed By: #### 2 4323-8 ####[facility] LABCLIA [id number] [place] [address] [place] Calcium [Mass/Vol] 9.2 mg/dL Normal 8.5-10.2 [facility] Comment on above: Order Comment: Speci men Type: BLOOD SPECIMENOrdering Facility: [facility] Address: [address] Performed By: #### 2 4323-8 ####[facility] LABCLIA [id number] [place] [address] [place] Chloride [Moles/Vol] 93 mmol/L Low 97-105 [facility] Comment on above: Order Comment: Speci men Type: BLOOD SPECIMENOrdering Facility: [facility] Address: [address] [place] [address] Performed By: #### 2 4323-8 ####[facility] LABIA [id number] [place] [address] [place] CO2 [Moles/Vol] 24 mmol/L Normal 22-30 [facility] Comment on above: Order Comment: Speci men Type: BLOOD SPECIMENOrdering Facility: [facility] Address: [address] [place] [address] Performed By: #### 2 4323-8 ####[facility] LABIA [id number] [address] STATES OF [facility] Creatinine [Mass/Vol] 2.16 mg/dL High 0.73-1.22 [facility] Comment on above: Order Comment: Speci men Type: BLOOD SPECIMENOrdering Facility: [facility] Address: [address] [place] [address] Performed By: #### 2 4323-8 ####[facility] LABIA [id number] [address] OF [facility] Creatinine and Glomerular filtration rate.predicted panel (S/P/Bld) 33 mL/min/1.73m??? Low >=60 [facility] Comment on above: Order Comment: Speci men Type: BLOOD SPECIMENOrdering Facility: [facility] Address: [address] [place] [address] Result Comment: Syl mated Glomerular Filtration Rate [...] actual GFR. Performed By: #### 2 4323-8 ####[facility] LABCLIA [id number] [place] [address] [place] Glucose [Mass/Vol] 214 mg/dL High 74-99 [facility] Comment on above: Order Comment: Speci men Type: BLOOD SPECIMENOrdering Facility: [facility] Address: [address] [id number] Result Comment: The [place] [employer] (ADA) provides guidance for cutoff [...] Standards of Medical Care in Diabetes 2016, [place] [employer]. Diabetes Care. 2016.39(Suppl 1). Performed By: #### 2 4323-8 ####[facility] LABCLIA [id number] [place] [address] [place] Potassium [Moles/Vol] 4.4 mmol/L Normal 3.7-5.1 [facility] Comment on above: Order Comment: Speci men Type: BLOOD SPECIMENOrdering Facility: [facility] Address: [address] [place] [address] Performed By: #### 2 4323-8 ####[facility] LABCLIA [id number] [address] [address] [place] Protein [Mass/Vol] 6.2 g/dL Low 6.3-8.0 [facility] Comment on above: Order Comment: Speci men Type: BLOOD SPECIMENOrdering Facility: [facility] Address: [address] [address] Performed By: #### 2 4323-8 ####[facility] LABIA [id number] [place] [address] [place] Sodium [Moles/Vol] 129 mmol/L Low 136-144 [facility] Comment on above: Order Comment: Speci men Type: BLOOD SPECIMENOrdering Facility: [facility] Address: [address] [place] [address] Performed By: #### 2 4323-8 ####[facility] LABIA [id number] [place] [address] [place] Urea nitrogen [Mass/Vol] 56 mg/dL High 9-24 [facility] Comment on above: Order Comment: Speci men Type: BLOOD SPECIMENOrdering Facility: [facility] Address: [address] [place] [address] Performed By: #### 2 4323-8 ####[facility] [id number] [place] [address] [place] NURSING PROGon 03-28-2023 NURSING PROG Normal [facility] PT EDon 03-28-2023 PT ED Normal [facility] PT panel Coag (PPP)on 2022 INR Coag (PPP) [Relative time] 1.6 {INR} High 0.9-1.3 [facility] Comment on above: Order Comment: Speci men Type: BLOOD SPECIMENOrdering Facility: [facility] Address: [address] [place] [address] Result Comment: Baylee min K Antagonist (VKA) Therapeutic Range: INR 2 to 3 (Target INR of 2.5)Note: For patients treated with VKA drugs, such as warfarin, the [place] [employer] 2012 Guideline recommends [...] al. Chest 2012, 141:7S-47SNishimura RA, et al. [facility] 2017, 70: 252-289 Performed By: #### 3 4528-0, 13123-2 ####[facility] LABCLIA [id number] [place] [address] [place] PT Coag (PPP) [Time] 16.5 s High 9.7-13.0 [facility] Comment on above: Order Comment: Joseline clemons Type: BLOOD SPECIMENOrdering Facility: [facility] Address: [address] [place] [address] Performed By: #### 3 4528-0, 27236-3 ####[facility] LABIA [id number] [address] [place] aPTT PPPon 03-28-2023 aPTT Coag (PPP) [Time] 33.6 s High 23.0-32.4 [facility] Comment on above: Order Comment: Joseline clemons Type: BLOOD SPECIMENOrdering Facility: [facility] Address: [address] [place] [address] Performed By: #### 3 4528-0, 69243-5 ####[facility] LABIA [id number] [place] [address] [place] CASE MANAGEMon 03-27-2023 CASE MANAGEM Normal [facility] CBC panel Auto (Bld)on 03-27 Erythrocyte distribution width (RBC) [Ratio] 20.8 % High 11.5-15.0 [facility] Comment on above: Order Comment: Joseline clemons Type: BLOOD SPECIMENOrdering Facility: [facility] Address: [address] Performed By: #### 5 8410-2 ####[facility] LABIA [id number] [address] [place] Hematocrit (Bld) [Volume fraction] 35.1 % Low 39.0-51.0 [facility] Comment on above: Order Comment: Speci men Type: BLOOD SPECIMENOrdering Facility: [facility] Address: [address] Performed By: #### 5 8410-2 ####[facility] [id number] [place] [address] [place] Hemoglobin (Bld) [Mass/Vol] 10.9 g/dL Low 13.0-17.0 [facility] Comment on above: Order Comment: Speci men Type: BLOOD SPECIMENOrdering Facility: [facility] Address: [address] [place], [place] [address] Performed By: #### 5 8410-2 ####[facility] [id number] [place] [address] [place] MCH (RBC) [Entitic mass] 24.9 pg Low 26.0-34.0 [facility] Comment on above: Order Comment: Speci men Type: BLOOD SPECIMENOrdering Facility: [facility] Address: [address] Performed By: #### 5 8410-2 ####[facility] LABIA [id number] [place] [address] [place] MCHC (RBC) [Mass/Vol] 31.1 g/dL Normal 30.5-36.0 [facility] Comment on above: Order Comment: Speci men Type: BLOOD SPECIMENOrdering Facility: [facility] Address: [address] [place], [place] [address] Performed By: #### 5 8410-2 ####[facility] LABIA [id number] [place] [address] [place] MCV (RBC) [Entitic vol] 80.3 fL Normal 80.0-100.0 [facility] Comment on above: Order Comment: Speci men Type: BLOOD SPECIMENOrdering Facility: [facility] Address: [address] [place] [address] Performed By: #### 5 8410-2 ####[facility] LABIA [id number] [place] [address] [place] Nucleated RBC (Bld) [#/Vol] 10*3/uL Normal <0.01 [facility] Comment on above: Order Comment: Speci men Type: BLOOD SPECIMENOrdering Facility: [facility] Address: [address] [place] [address] Performed By: #### 5 8410-2 ####[facility] [id number] [place] [address] [place] Platelet mean volume (Bld) [Entitic vol] 10.1 fL Normal 9.0-12.7 [facility] Comment on above: Order Comment: Speci men Type: BLOOD SPECIMENOrdering Facility: [facility] Address: [address] [place], [place] [address] Performed By: #### 5 8410-2 ####[facility] LABIA [id number] [place] [address] [place] Platelets (Bld) [#/Vol] 234 10*3/uL Normal 150-400 [facility] Comment on above: Order Comment: Speci men Type: BLOOD SPECIMENOrdering Facility: [facility] Address: [address] [place], [place] [address] Performed By: #### 5 8410-2 ####[facility] LABIA [id number] [place] [address] [place] RBC (Bld) [#/Vol] 4.37 10*6/uL Normal 4.20-6.00 [facility] Comment on above: Order Comment: Speci men Type: BLOOD SPECIMENOrdering Facility: [facility] Address: [address] [place] [address] Performed By: #### 5 8410-2 ####[facility] LABCLIA [id number] [place] [address] [place] WBC (Bld) [#/Vol] 10.25 10*3/uL Normal 3.70-11.00 [facility] Comment on above: Order Comment: Speci men Type: BLOOD SPECIMENOrdering Facility: [facility] Address: [address] [place] [address] Performed By: #### 5 8410-2 ####[facility] LABCLIA [id number] [place] [address] [place] CONSULTon 03-27-2023 CONSULT Normal [facility] CONSULT PROGon 03-27-2023 CONSULT PROG Normal [facility] Comprehensive metabolic 2000 panelon 03-27-2023 Albumin [Mass/Vol] 3.3 g/dL Low 3.9-4.9 [facility] Comment on above: Order Comment: Speci men Type: BLOOD SPECIMENOrdering Facility: [facility] Address: [address] [place], [place] [address] Performed By: #### 2 4323-8 ####[facility] LABCLIA [id number] [place] [address] [place] ALP [Catalytic activity/Vol] 141 U/L High 38-113 [facility] Comment on above: Order Comment: Speci men Type: BLOOD SPECIMENOrdering Facility: [facility] Address: [address] [place] [address] Performed By: #### 2 4323-8 ####[facility] LABCLIA [id number] [id number] [address] [place] ALT [Catalytic activity/Vol] 36 U/L Normal 10-54 [facility] Comment on above: Order Comment: Speci men Type: BLOOD SPECIMENOrdering Facility: [facility] Address: [address] [address] Performed By: #### 2 4323-8 ####[facility] LABCLIA [id number] [place] [address] [place] Anion gap [Moles/Vol] 13 mmol/L Normal 9-18 [facility] Comment on above: Order Comment: Speci men Type: BLOOD SPECIMENOrdering Facility: [facility] Address: [address] [place] [address] Performed By: #### 2 4323-8 ####[facility] LABCLIA [id number] [place] [address] [place] AST [Catalytic activity/Vol] 29 U/L Normal 14-40 [facility] Comment on above: Order Comment: Speci men Type: BLOOD SPECIMENOrdering Facility: [facility] Address: [address] [place] [address] Performed By: #### 2 4323-8 ####[facility] LABCLIA [id number] [place] [address] [place] Bilirubin [Mass/Vol] 2.1 mg/dL High 0.2-1.3 [facility] Comment on above: Order Comment: Speci men Type: BLOOD SPECIMENOrdering Facility: [facility] Address: [address] Performed By: #### 2 4323-8 ####[facility] LABCLIA [id number] [place] [address] [place] Calcium [Mass/Vol] 9.1 mg/dL Normal 8.5-10.2 [facility] Comment on above: Order Comment: Speci men Type: BLOOD SPECIMENOrdering Facility: [facility] Address: [address] [place], [place] [address] Performed By: #### 2 4323-8 ####[facility] LABCLIA [id number] [place] [address] [place] Chloride [Moles/Vol] 94 mmol/L Low 97-105 [facility] Comment on above: Order Comment: Speci men Type: BLOOD SPECIMENOrdering Facility: [facility] Address: [address] [place] [address] Performed By: #### 2 4323-8 ####[facility] LABCLIA [id number] [place] [address] [place] CO2 [Moles/Vol] 23 mmol/L Normal 22-30 [facility] Comment on above: Order Comment: Speci men Type: BLOOD SPECIMENOrdering Facility: [facility] Address: [address] [place] [address] Performed By: #### 2 4323-8 ####[facility] LABCLIA [id number] [place] [address] [place] Creatinine [Mass/Vol] 2.32 mg/dL High 0.73-1.22 [facility] Comment on above: Order Comment: Speci men Type: BLOOD SPECIMENOrdering Facility: [facility] Address: [address] [place] [address] Performed By: #### 2 4323-8 ####[facility] LABCLIA [id number] [address] Creatinine and Glomerular filtration rate.predicted panel (S/P/Bld) 30 mL/min/1.73m??? Low >=60 [facility] Comment on above: Order Comment: Speci men Type: BLOOD SPECIMENOrdering Facility: [facility] Address: [address] [place] [address] Result Comment: Syl mated Glomerular Filtration Rate [...] actual GFR. Performed By: #### 2 4323-8 ####[facility] LABCLIA [id number] [place] [address] [place] Glucose [Mass/Vol] 171 mg/dL High 74-99 [facility] Comment on above: Order Comment: Speci men Type: BLOOD SPECIMENOrdering Facility: [facility] Address: [address] [id number] Result Comment: The [place] [employer] (ADA) provides guidance for cutoff [...] Standards of Medical Care in Diabetes 2016, [place] [employer]. Diabetes Care. 2016.39(Suppl 1). Performed By: #### 2 4323-8 ####[facility] LABCLIA [id number] [place] [address] [place] Potassium [Moles/Vol] 4.3 mmol/L Normal 3.7-5.1 [facility] Comment on above: Order Comment: Speccate clemons Type: BLOOD SPECIMENOrdering Facility: [facility] Address: [address] [place] [address] Performed By: #### 2 4323-8 ####[facility] LABCLIA [id number] [address] [address] [place] Protein [Mass/Vol] 6.1 g/dL Low 6.3-8.0 [facility] Comment on above: Order Comment: Speci men Type: BLOOD SPECIMENOrdering Facility: [facility] Address: [address] [place] [address] Performed By: #### 2 4323-8 ####[facility] LABCLIA [id number] [place] [address] [place] Sodium [Moles/Vol] 130 mmol/L Low 136-144 [facility] Comment on above: Order Comment: Speci men Type: BLOOD SPECIMENOrdering Facility: [facility] Address: [address] [place] [address] Performed By: #### 2 4323-8 ####[facility] LABCLIA [id number] [place] [address] [place] Urea nitrogen [Mass/Vol] 62 mg/dL High 9-24 [facility] Comment on above: Order Comment: Speci men Type: BLOOD SPECIMENOrdering Facility: [facility] Address: [address] [place] [address] Performed By: #### 2 4323-8 ####[facility] LABCLIA [id number] [place] [address] [place] IR ARM VENO SYMPTOMATIC BILo n 03-27-2023 IR ARM VENO SYMPTOMATIC NACHO Normal [facility] PT EDon 03-27-2023 PT ED Normal [facility] PT panel Coag (PPP)on 2022 INR Coag (PPP) [Relative time] 2.9 {INR} High 0.9-1.3 [facility] Comment on above: Order Comment: Speci men Type: BLOOD SPECIMENOrdering Facility: [facility] Address: [address] [place] [address] Result Comment: Baylee min K Antagonist (VKA) Therapeutic Range: INR 2 to 3 (Target INR of 2.5)Note: For patients treated with VKA drugs, such as warfarin, the [place] [employer] 2012 Guideline recommends [...] of 3).Geovanna GH, et al. Chest 2012, 141:7S-47STrudy RA, et al. [facility] 2017, 70: 252-289 Performed By: #### 3 4528-0 ####[facility] [id number] [address] STATES OF [facility] PT Coag (PPP) [Time] 28.2 s High 9.7-13.0 [facility] Comment on above: Order Comment: Joseline clemons Type: BLOOD SPECIMENOrdering Facility: [facility] Address: [address] [place] [address] Performed By: #### 3 4528-0 ####[facility] [id number] [address] OF [facility] INR Coag (PPP) [Relative time] 3.0 {INR} High 0.9-1.3 [facility] Comment on above: Order Comment: Joseline clemons Type: BLOOD SPECIMENOrdering Facility: [facility] Address: [address] [place] [address] Result Comment: Baylee min K Antagonist (VKA) Therapeutic Range: INR 2 to 3 (Target INR of 2.5)Note: For patients treated with VKA drugs, such as warfarin, the [place] [employer] 2012 Guideline recommends [...] al. Chest 2012, 141:7S-47STrudy JONES et al. [facility] 2017, 70: 252-289 Performed By: #### 3 4528-0 ####[facility] [id number] [address] STATES OF [facility] PT Coag (PPP) [Time] 29.7 s High 9.7-13.0 [facility] Comment on above: Order Comment: Joseline clemons Type: BLOOD SPECIMENOrdering Facility: [facility] Address: [address] [place] [address] Performed By: #### 3 4528-0 ####[facility] [id number] [address] OF [facility] INR Coag (PPP) [Relative time] 3.2 {INR} High 0.9-1.3 [facility] Comment on above: Order Comment: Joseline clemons Type: BLOOD SPECIMENOrdering Facility: [facility] Address: [address] [place] [address] Result Comment: Baylee min K Antagonist (VKA) Therapeutic Range: INR 2 to 3 (Target INR of 2.5)Note: For patients treated with VKA drugs, such as warfarin, the [place] [employer] 2012 Guideline recommends [...] al. Chest 2012, 141:7S-47SNishimura RA, et al. [facility] 2017, 70: 252-289 Performed By: #### 3 4528-0 ####[facility] LABIA [id number] [place] [address] [place] PT Coag (PPP) [Time] 30.7 s High 9.7-13.0 [facility] Comment on above: Order Comment: Speci men Type: BLOOD SPECIMENOrdering Facility: [facility] Address: [address] [address] Performed By: #### 3 4528-0 ####[facility] LABIA [id number] [address] [place] CBC panel Auto (Bld)on 03-26 Erythrocyte distribution width (RBC) [Ratio] 20.7 % High 11.5-15.0 [facility] Comment on above: Order Comment: Speci men Type: BLOOD SPECIMENOrdering Facility: [facility] Address: [address] [place] [address] Performed By: #### 5 8410-2 ####[facility] [id number] [place] [address] [place] Hematocrit (Bld) [Volume fraction] 36.3 % Low 39.0-51.0 [facility] Comment on above: Order Comment: Speci men Type: BLOOD SPECIMENOrdering Facility: [facility] Address: [address] [place] [address] Performed By: #### 5 8410-2 ####[facility] [id number] [place] [address] [place] Hemoglobin (Bld) [Mass/Vol] 11.3 g/dL Low 13.0-17.0 [facility] Comment on above: Order Comment: Speci men Type: BLOOD SPECIMENOrdering Facility: [facility] Address: [address] [place] [address] Performed By: #### 5 8410-2 ####[facility] [id number] [address] STATES [facility] MCH (RBC) [Entitic mass] 24.9 pg Low 26.0-34.0 [facility] Comment on above: Order Comment: Speci men Type: BLOOD SPECIMENOrdering Facility: [facility] Address: [address] [place] [address] Performed By: #### 5 8410-2 ####[facility] [id number] [place] [address] [place] MCHC (RBC) [Mass/Vol] 31.1 g/dL Normal 30.5-36.0 [facility] Comment on above: Order Comment: Speci men Type: BLOOD SPECIMENOrdering Facility: [facility] Address: [address] [place] [address] Performed By: #### 5 8410-2 ####[facility] [id number] [place] [address] [place] MCV (RBC) [Entitic vol] 80.1 fL Normal 80.0-100.0 [facility] Comment on above: Order Comment: Speci men Type: BLOOD SPECIMENOrdering Facility: [facility] Address: [address] [place] [address] Performed By: #### 5 8410-2 ####[facility] [id number] [address] [place] Nucleated RBC (Bld) [#/Vol] 10*3/uL Normal <0.01 [facility] Comment on above: Order Comment: Speci men Type: BLOOD SPECIMENOrdering Facility: [facility] Address: [address] [place] [address] Performed By: #### 5 8410-2 ####[facility] [id number] [id number] [address] [place] Platelet mean volume (Bld) [Entitic vol] 9.7 fL Normal 9.0-12.7 [facility] Comment on above: Order Comment: Speci men Type: BLOOD SPECIMENOrdering Facility: [facility] Address: [address] [place] [address] Performed By: #### 5 8410-2 ####[facility] LABCLIA [id number] [place] [address] [place] Platelets (Bld) [#/Vol] 237 10*3/uL Normal 150-400 [facility] Comment on above: Order Comment: Speci men Type: BLOOD SPECIMENOrdering Facility: [facility] Address: [address] [place], [place] [address] Performed By: #### 5 8410-2 ####[facility] LABCLIA [id number] [place] [address] [place] RBC (Bld) [#/Vol] 4.53 10*6/uL Normal 4.20-6.00 [facility] Comment on above: Order Comment: Speci men Type: BLOOD SPECIMENOrdering Facility: [facility] Address: [address] [place], [place] [address] Performed By: #### 5 8410-2 ####[facility] LABIA [id number] [place] [address] [place] WBC (Bld) [#/Vol] 9.04 10*3/uL Normal 3.70-11.00 [facility] Comment on above: Order Comment: Speci men Type: BLOOD SPECIMENOrdering Facility: [facility] Address: [address] [place], [place] [address] Performed By: #### 5 8410-2 ####[facility] LABCLIA [id number] [place] [address] [place] CONSULT PROGon 03-26-2023 CONSULT PROG Normal [facility] metabolic 2000 panelon 03-26-2023 Albumin [Mass/Vol] 3.5 g/dL Low 3.9-4.9 [facility] Comment on above: Order Comment: Speci men Type: BLOOD SPECIMENOrdering Facility: [facility] Address: [address] [place] [address] Performed By: #### 2 4323-8 ####[facility] LABCLIA [id number] [facility] [place] [address] [place] ALP [Catalytic activity/Vol] 146 U/L High 38-113 [facility] Comment on above: Order Comment: Speci men Type: BLOOD SPECIMENOrdering Facility: [facility] Address: [address] [place] [address] Performed By: #### 2 4323-8 ####[facility] LABCLIA [id number] [address] [place] ALT [Catalytic activity/Vol] 36 U/L Normal 10-54 [facility] Comment on above: Order Comment: Speci men Type: BLOOD SPECIMENOrdering Facility: [facility] Address: [address] [place] [address] Performed By: #### 2 4323-8 ####[facility] LABCLIA [id number] [place] [address] [place] Anion gap [Moles/Vol] 15 mmol/L Normal 9-18 [facility] Comment on above: Order Comment: Speci men Type: BLOOD SPECIMENOrdering Facility: [facility] Address: [address] [place] [address] Performed By: #### 2 4323-8 ####[facility] LABCLIA [id number] [place] [address] [place] AST [Catalytic activity/Vol] 36 U/L Normal 14-40 [facility] Comment on above: Order Comment: Speci men Type: BLOOD SPECIMENOrdering Facility: [facility] Address: [address] [place], [place] [address] Performed By: #### 2 4323-8 ####[facility] LABCLIA [id number] [place] [address] [place] Bilirubin [Mass/Vol] 2.7 mg/dL High 0.2-1.3 [facility] Comment on above: Order Comment: Speci men Type: BLOOD SPECIMENOrdering Facility: [facility] Address: [address] Performed By: #### 2 4323-8 ####[facility] LABCLIA [id number] [place] [address] [place] Calcium [Mass/Vol] 9.2 mg/dL Normal 8.5-10.2 [facility] Comment on above: Order Comment: Speci men Type: BLOOD SPECIMENOrdering Facility: [facility] Address: [address] [place], [place] [address] Performed By: #### 2 4323-8 ####[facility] LABCLIA [id number] [place] [address] [place] Chloride [Moles/Vol] 94 mmol/L Low 97-105 [facility] Comment on above: Order Comment: Speci men Type: BLOOD SPECIMENOrdering Facility: [facility] Address: [address] [place], [place] [address] Performed By: #### 2 4323-8 ####[facility] LABCLIA [id number] [place] [address] [place] CO2 [Moles/Vol] 22 mmol/L Normal 22-30 [facility] Comment on above: Order Comment: Speci men Type: BLOOD SPECIMENOrdering Facility: [facility] Address: [address] [place], [place] [address] Performed By: #### 2 4323-8 ####[facility] LABCLIA [id number] [place] [address] [place] Creatinine [Mass/Vol] 2.26 mg/dL High 0.73-1.22 [facility] Comment on above: Order Comment: Joseline clemons Type: BLOOD SPECIMENOrdering Facility: [facility] Address: [address] [address] Performed By: #### 2 4323-8 ####[facility] LABCLIA [id number] [address] OF [facility] Creatinine and Glomerular filtration rate.predicted panel (S/P/Bld) 31 mL/min/1.73m??? Low >=60 [facility] Comment on above: Order Comment: Joseline clemons Type: BLOOD SPECIMENOrdering Facility: [facility] Address: [address] [place] [address] Result Comment: Syl mated Glomerular Filtration Rate [...] actual GFR. Performed By: #### 2 4323-8 ####[facility] LABCLIA [id number] [place] [address] [place] Glucose [Mass/Vol] 154 mg/dL High 74-99 [facility] Comment on above: Order Comment: Joseline clemons Type: BLOOD SPECIMENOrdering Facility: [facility] Address: [address] [place] [address] Result Comment: The [place] [employer] (ADA) provides guidance for cutoff [...] Standards of Medical Care in Diabetes 2016, [place] [employer]. Diabetes Care. 2016.39(Suppl 1). Performed By: #### 2 4323-8 ####[facility] LABIA [id number] [place] [address] [place] Potassium [Moles/Vol] 4.4 mmol/L Normal 3.7-5.1 [facility] Comment on above: Order Comment: Speci men Type: BLOOD SPECIMENOrdering Facility: [facility] Address: [address] [address] Performed By: #### 2 4323-8 ####[facility] LABIA [id number] [place] [address] [place] Protein [Mass/Vol] 5.9 g/dL Low 6.3-8.0 [facility] Comment on above: Order Comment: Speci men Type: BLOOD SPECIMENOrdering Facility: [facility] Address: [address] [address] Performed By: #### 2 4323-8 ####[facility] LABIA [id number] [place] [address] [place] Sodium [Moles/Vol] 131 mmol/L Low 136-144 [facility] Comment on above: Order Comment: Speci men Type: BLOOD SPECIMENOrdering Facility: [facility] Address: [address] Performed By: #### 2 4323-8 ####[facility] LABIA [id number] [place] [address] [place] Urea nitrogen [Mass/Vol] 61 mg/dL High 9-24 [facility] Comment on above: Order Comment: Speci men Type: BLOOD SPECIMENOrdering Facility: [facility] Address: [address] Performed By: #### 2 4323-8 ####[facility] LABCLIA [id number] [place] [address] [place] PT panel Coag (PPP)on 2022 INR Coag (PPP) [Relative time] 3.0 {INR} High 0.9-1.3 [facility] Comment on above: Order Comment: Speci men Type: BLOOD SPECIMENOrdering Facility: [facility] Address: [address] [address] Result Comment: Baylee min K Antagonist (VKA) Therapeutic Range: INR 2 to 3 (Target INR of 2.5)Note: For patients treated with VKA drugs, such as warfarin, the [place] [employer] 2012 Guideline recommends [...] of 3).Geovanna GH, et al. Chest 2012, 141:7S-47STrudy RA, et al. [facility] 2017, 70: 252-289 Performed By: #### 3 4528-0 ####[facility] LABIA [id number] [address] [place] PT Coag (PPP) [Time] 29.4 s High 9.7-13.0 [facility] Comment on above: Order Comment: Speci men Type: BLOOD SPECIMENOrdering Facility: [facility] Address: [place] [address] Performed By: #### 3 4528-0 ####[facility] LABIA [id number] [address] [place] CBC panel Auto (Bld)on 03-25 Erythrocyte distribution width (RBC) [Ratio] 20.8 % High 11.5-15.0 [facility] Comment on above: Order Comment: Speci men Type: BLOOD SPECIMENOrdering Facility: [facility] Address: [address] [place] [address] Performed By: #### 5 8410-2 ####[facility] LABIA [id number] [place] [address] [place] Hematocrit (Bld) [Volume fraction] 38.1 % Low 39.0-51.0 [facility] Comment on above: Order Comment: Speci men Type: BLOOD SPECIMENOrdering Facility: [facility] Address: [address] [place] [address] Performed By: #### 5 8410-2 ####[facility] LABIA [id number] [place] [address] [place] Hemoglobin (Bld) [Mass/Vol] 12.0 g/dL Low 13.0-17.0 [facility] Comment on above: Order Comment: Speci men Type: BLOOD SPECIMENOrdering Facility: [facility] Address: [address] [place] [address] Performed By: #### 5 8410-2 ####[facility] LABIA [id number] [place] [address] [place] MCH (RBC) [Entitic mass] 25.6 pg Low 26.0-34.0 [facility] Comment on above: Order Comment: Speci men Type: BLOOD SPECIMENOrdering Facility: [facility] Address: [address] [place] [address] Performed By: #### 5 8410-2 ####[facility] LABIA [id number] [place] [address] [place] MCHC (RBC) [Mass/Vol] 31.5 g/dL Normal 30.5-36.0 [facility] Comment on above: Order Comment: Speci men Type: BLOOD SPECIMENOrdering Facility: [facility] Address: [address] Performed By: #### 5 8410-2 ####[facility] [id number] [address] STATES OF [facility] MCV (RBC) [Entitic vol] 81.2 fL Normal 80.0-100.0 [facility] Comment on above: Order Comment: Speci men Type: BLOOD SPECIMENOrdering Facility: [facility] Address: [address] Performed By: #### 5 8410-2 ####[facility] [id number] [place] [address] [place] Nucleated RBC (Bld) [#/Vol] 0.02 10*3/uL High <0.01 [facility] Comment on above: Order Comment: Speci men Type: BLOOD SPECIMENOrdering Facility: [facility] Address: [address] Performed By: #### 5 8410-2 ####[facility] [id number] [place] [address] [place] Platelet mean volume (Bld) [Entitic vol] 9.5 fL Normal 9.0-12.7 [facility] Comment on above: Order Comment: Speci men Type: BLOOD SPECIMENOrdering Facility: [facility] Address: [address] Performed By: #### 5 8410-2 ####[facility] [id number] [place] [address] [place] Platelets (Bld) [#/Vol] 244 10*3/uL Normal 150-400 [facility] Comment on above: Order Comment: Speci men Type: BLOOD SPECIMENOrdering Facility: [facility] Address: [address] [place], [place] [address] Performed By: #### 5 8410-2 ####[facility] LABCLIA [id number] [place] [address] [place] RBC (Bld) [#/Vol] 4.69 10*6/uL Normal 4.20-6.00 [facility] Comment on above: Order Comment: Speci men Type: BLOOD SPECIMENOrdering Facility: [facility] Address: [address] [place] [address] Performed By: #### 5 8410-2 ####[facility] LABIA [id number] [place] [address] [place] WBC (Bld) [#/Vol] 10.45 10*3/uL Normal 3.70-11.00 [facility] Comment on above: Order Comment: Speci men Type: BLOOD SPECIMENOrdering Facility: [facility] Address: [address] [place] [address] Performed By: #### 5 8410-2 ####[facility] LABIA [id number] [place] [address] [place] CONSULT PROGon 03-25-2023 CONSULT PROG Normal [facility] PT EDon 03-25-2023 PT ED Normal [facility] PT panel Coag (PPP)on 2022 INR Coag (PPP) [Relative time] 2.9 {INR} High 0.9-1.3 [facility] Comment on above: Order Comment: Speci men Type: BLOOD SPECIMENOrdering Facility: [facility] Address: [address] [place] [address] Result Comment: Baylee min K Antagonist (VKA) Therapeutic Range: INR 2 to 3 (Target INR of 2.5)Note: For patients treated with VKA drugs, such as warfarin, the [place] [employer] 2012 Guideline recommends [...] of 3).Geovanna NEGRON, et al. Chest 2012, 141:7S-47SNishmati RA, et al. [facility] 2017, 70: 252-289 Performed By: #### 3 4528-0 ####[facility] [id number] [place] [address] [place] PT Coag (PPP) [Time] 28.7 s High 9.7-13.0 [facility] Comment on above: Order Comment: Joseline clemons Type: BLOOD SPECIMENOrdering Facility: [facility] Address: [address] [place] [address] Performed By: #### 3 4528-0 ####[facility] [id number] [address] [place] THERAPY NTon 03-25-2023 THERAPY NT Normal [facility] CBC panel Auto (Bld)on 03-24 Erythrocyte distribution width (RBC) [Ratio] 20.3 % High 11.5-15.0 [facility] Comment on above: Order Comment: Joseline clemons Type: BLOOD SPECIMENOrdering Facility: [facility] Address: [address] [place] [address] Performed By: #### 5 8410-2 ####[facility] [id number] [address] Hematocrit (Bld) [Volume fraction] 36.6 % Low 39.0-51.0 [facility] Comment on above: Order Comment: Joseline clemons Type: BLOOD SPECIMENOrdering Facility: [facility] Address: [address] [place] [address] Performed By: #### 5 8410-2 ####[facility] LABIA [id number] [place] [address] [place] Hemoglobin (Bld) [Mass/Vol] 11.3 g/dL Low 13.0-17.0 [facility] Comment on above: Order Comment: Speci men Type: BLOOD SPECIMENOrdering Facility: [facility] Address: [address] [place] [address] Performed By: #### 5 8410-2 ####[facility] [id number] [place] [address] [place] MCH (RBC) [Entitic mass] 24.8 pg Low 26.0-34.0 [facility] Comment on above: Order Comment: Speci men Type: BLOOD SPECIMENOrdering Facility: [facility] Address: [address] [place] [address] Performed By: #### 5 8410-2 ####[facility] [id number] [address] [place] MCHC (RBC) [Mass/Vol] 30.9 g/dL Normal 30.5-36.0 [facility] Comment on above: Order Comment: Speci men Type: BLOOD SPECIMENOrdering Facility: [facility] Address: [address] [place] [address] Performed By: #### 5 8410-2 ####[facility] [id number] [place] [address] [place] MCV (RBC) [Entitic vol] 80.4 fL Normal 80.0-100.0 [facility] Comment on above: Order Comment: Speci men Type: BLOOD SPECIMENOrdering Facility: [facility] Address: [address] [place] [address] Performed By: #### 5 8410-2 ####[facility] [id number] [place] [address] [place] Nucleated RBC (Bld) [#/Vol] 0.02 10*3/uL High <0.01 [facility] Comment on above: Order Comment: Speci men Type: BLOOD SPECIMENOrdering Facility: [facility] Address: [address] [place] [address] Performed By: #### 5 8410-2 ####[facility] LABCLIA [id number] [place] [address] [place] Platelet mean volume (Bld) [Entitic vol] 10.1 fL Normal 9.0-12.7 [facility] Comment on above: Order Comment: Speci men Type: BLOOD SPECIMENOrdering Facility: [facility] Address: [address] [place], [place] [address] Performed By: #### 5 8410-2 ####[facility] LABCLIA [id number] [place] [address] [place] Platelets (Bld) [#/Vol] 227 10*3/uL Normal 150-400 [facility] Comment on above: Order Comment: Speci men Type: BLOOD SPECIMENOrdering Facility: [facility] Address: [address] [place], [place] [address] Performed By: #### 5 8410-2 ####[facility] LABIA [id number] [place] [address] [place] RBC (Bld) [#/Vol] 4.55 10*6/uL Normal 4.20-6.00 [facility] Comment on above: Order Comment: Speci men Type: BLOOD SPECIMENOrdering Facility: [facility] Address: [address] [place], [place] [address] Performed By: #### 5 8410-2 ####[facility] LABCLIA [id number] [place] [address] [place] WBC (Bld) [#/Vol] 9.91 10*3/uL Normal 3.70-11.00 [facility] Comment on above: Order Comment: Speci men Type: BLOOD SPECIMENOrdering Facility: [facility] Address: [address] [place] [address] Performed By: #### 5 8410-2 ####[facility] LABCLIA [id number] [address] [place] [place] [address] [place] CONSULTon 03-24-2023 CONSULT Normal [facility] CONSULT PROGon 03-24-2023 CONSULT PROG Normal [facility] ICD CLINIC CHECKon 3 Federico RV Pacing Amplitude (volts) 2.0 V [facility] Federico RV Pacing Polarity BI [facility] Federico RV Pacing Pulse Width (ms) 0.4 ms [facility] Federico RV Sensing Amplitude (mvolts) 0.6 mV [facility] Federico RV Sensing Polarity BI [facility] Detection Configuration (Vent) 1 - Zone [facility] FastVT_Detection Interval 333 ms [facility] ICD FastVT DetectionStatus ENABLED [facility] ICD-ATP Episodes (Vent) 0 [facility] ICD-Device Mfg BSX [facility] ICD-Percent Pacing (Vent) 0 % [facility] ICD-Rhythm Normal Sinus Rhythm [facility] ICD-Shocks Aborted (Vent) 0 [facility] KER-RNCKHV-TEMBPYAFZ 0 [facility] ICD-SHOCKSABORTED 0 [facility] ICD-SHOCKSDELIVEREDVE NTRICULAR 0 [facility] ICD-Ventricular Fibrillation 0 [facility] Lead Impedance (RV) 505 ohm [facility] Lead Impedance High Voltage 93 ohm [facility] Lead1 Mfg BSX [facility] Location RV [facility] Lower Rate (bpm) 40 {beats}/min [facility] MDT_PROG_TACHY_ZONE_D ETECTIONS_STATUS ENABLED [facility] Model D150 DYNAGEN [facility] Model 0292 [employer] Relianc e 4-Site SG [facility] Pacemaker Dependent? NO [facility] Pacing Mode VVI [facility] Serial Number [id number] [facility] Serial Number [id number] [facility] Test Charge Time 11.0 s [facility] Therapy Status (Vent) Enabled [facility] Thresh RV Capture Amplitude (VOLTS) 0.6 V [facility] Thresh RV Capture Duration (MS) 0.4 ms [facility] VF Zone Detection Interval 273 ms [facility] VF Zone Therapy Configuration 1 ATP(s) + 8 Shock(s) [facility] NUTRITIONon 03-24-2023 NUTRITION Normal [facility] No Panel Informationon 03-24 BLANK _ [facility] ICD-Fast Ventricular Tachycardia 0 [facility] Implant Date 10/18/2017 [facility] PT panel Coag (PPP)on 2022 INR Coag (PPP) [Relative time] 2.5 {INR} High 0.9-1.3 [facility] Comment on above: Order Comment: Speci men Type: BLOOD SPECIMENOrdering Facility: [facility] Address: [address] [address] Result Comment: Baylee min K Antagonist (VKA) Therapeutic Range: INR 2 to 3 (Target INR of 2.5)Note: For patients treated with VKA drugs, such as warfarin, the [place] [employer] 2012 Guideline recommends [...] of 3).Geovanna GH, et al. Chest 2012, 141:7S-47SNishmati RA, et al. [facility] 2017, 70: 252-289 Performed By: #### 3 4528-0 ####[facility] LABCLIA [id number] [facility] [id number] [place] PT Coag (PPP) [Time] 24.8 s High 9.7-13.0 [facility] Comment on above: Order Comment: Joseline clemons Type: BLOOD SPECIMENOrdering Facility: [facility] Address: [address] [place] [address] Performed By: #### 3 4528-0 ####[facility] LABCLIA [id number] [place] [address] [place] PVR ANK/VELASCO/TOE NACHO VAS LAB on 03-24-2023 PVR ANK/VELASCO/TOE NACHO VAS LAB Normal [facility] Prot Ur-mCncon 03-24-2023 Protein (U) [Mass/Vol] 8 mg/dL Normal 0-20 [facility] Comment on above: Order Comment: Speci men Type: URINE SPECIMENOrdering Facility: [facility] Address: [address] [address] Performed By: #### 2 888-6 ####[facility] LABIA [id number] [place] [address] [place] Basic metabolic 2000 panelon 03-23-2023 Anion gap [Moles/Vol] 12 mmol/L Normal 9-18 [facility] Comment on above: Order Comment: Speci men Type: BLOOD SPECIMENOrdering Facility: [facility] Address: [address] [address] Performed By: #### 2 4321-2, 2885-2 ####[facility] LABIA [id number] [place] [address] [place] Calcium [Mass/Vol] 9.6 mg/dL Normal 8.5-10.2 [facility] Comment on above: Order Comment: Speci men Type: BLOOD SPECIMENOrdering Facility: [facility] Address: [address] Performed By: #### 2 4321-2, 2885-2 ####[facility] LABIA [id number] [place] [address] [place] Chloride [Moles/Vol] 96 mmol/L Low 97-105 [facility] Comment on above: Order Comment: Speci men Type: BLOOD SPECIMENOrdering Facility: [facility] Address: [address] [address] Performed By: #### 2 4321-2, 2885-2 ####[facility] LABIA [id number] [place] [address] [place] CO2 [Moles/Vol] 26 mmol/L Normal 22-30 [facility] Comment on above: Order Comment: Speci men Type: BLOOD SPECIMENOrdering Facility: [facility] Address: [address] [place] [address] Performed By: #### 2 432-2, 2884-2 ####[facility] LABIA [id number] [place] [address] [place] Creatinine [Mass/Vol] 2.07 mg/dL High 0.73-1.22 [facility] Comment on above: Order Comment: Speci men Type: BLOOD SPECIMENOrdering Facility: [facility] Address: [address] [place] [address] Performed By: #### 2 4320-2, 2 ####[facility] [id number] [place] [address] [place] Creatinine and Glomerular filtration rate.predicted panel (S/P/Bld) 35 mL/min/1.73m??? Low >=60 [facility] Comment on above: Order Comment: Speci men Type: BLOOD SPECIMENOrdering Facility: [facility] Address: [address] [place] [address] Result Comment: Syl mated Glomerular Filtration Rate [...] GFR. Performed By: #### 2 432-2, 2884-2 ####[facility] LABIA [id number] [place] [address] [place] Glucose [Mass/Vol] 123 mg/dL High 74-99 [facility] Comment on above: Order Comment: Speci men Type: BLOOD SPECIMENOrdering Facility: [facility] Address: [address] [place] [address] Result Comment: The [place] [employer] (ADA) provides guidance for cutoff [...] Standards of Medical Care in Diabetes 2016, [place] [employer]. Diabetes Care. 2016.39(Suppl 1). Performed By: #### 2 4321-2, 288-2 ####[facility] LABCLIA [id number] [place] [address] [place] Potassium [Moles/Vol] 5.0 mmol/L Normal 3.7-5.1 [facility] Comment on above: Order Comment: Joseline clemons Type: BLOOD SPECIMENOrdering Facility: [facility] Address: [address] [place] [address] Performed By: #### 2 4321-2, 288-2 ####[facility] LABCLIA [id number] [place] [address] [place] Sodium [Moles/Vol] 134 mmol/L Low 136-144 [facility] Comment on above: Order Comment: Speci men Type: BLOOD SPECIMENOrdering Facility: [facility] Address: [address] [place] [address] Performed By: #### 2 4321-2, 288-2 ####[facility] LABCLIA [id number] [place] [address] [place] Urea nitrogen [Mass/Vol] 57 mg/dL High 9-24 [facility] Comment on above: Order Comment: Speci men Type: BLOOD SPECIMENOrdering Facility: [facility] Address: [address] [place] [address] Performed By: #### 2 4321-2, 2885-2 ####[facility] LABCLIA [id number] [place] [address] [place] CBC panel Auto (Bld)on 03-23 Erythrocyte distribution width (RBC) [Ratio] 20.3 % High 11.5-15.0 [facility] Comment on above: Order Comment: Speci men Type: BLOOD SPECIMENOrdering Facility: [facility] Address: [address] [place] [address] Performed By: #### 5 8410-2 ####[facility] LABIA [id number] [place] [address] [place] Hematocrit (Bld) [Volume fraction] 36.1 % Low 39.0-51.0 [facility] Comment on above: Order Comment: Speci men Type: BLOOD SPECIMENOrdering Facility: [facility] Address: [address] [place] [address] Performed By: #### 5 8410-2 ####[facility] LABCLIA [id number] [place] [address] [place] Hemoglobin (Bld) [Mass/Vol] 11.1 g/dL Low 13.0-17.0 [facility] Comment on above: Order Comment: Speci men Type: BLOOD SPECIMENOrdering Facility: [facility] Address: [address] [place] [address] Performed By: #### 5 8410-2 ####[facility] LABCLIA [id number] [place] [address] [place] MCH (RBC) [Entitic mass] 24.8 pg Low 26.0-34.0 [facility] Comment on above: Order Comment: Speci men Type: BLOOD SPECIMENOrdering Facility: [facility] Address: [address] Performed By: #### 5 8410-2 ####[facility] [id number] [address] [place] MCHC (RBC) [Mass/Vol] 30.7 g/dL Normal 30.5-36.0 [facility] Comment on above: Order Comment: Speci men Type: BLOOD SPECIMENOrdering Facility: [facility] Address: [address] [address] Performed By: #### 5 8410-2 ####[facility] [id number] [place] [address] [place] MCV (RBC) [Entitic vol] 80.6 fL Normal 80.0-100.0 [facility] Comment on above: Order Comment: Speci men Type: BLOOD SPECIMENOrdering Facility: [facility] Address: [address] Performed By: #### 5 8410-2 ####[facility] [id number] [place] [address] [place] Nucleated RBC (Bld) [#/Vol] 10*3/uL Normal <0.01 [facility] Comment on above: Order Comment: Speci men Type: BLOOD SPECIMENOrdering Facility: [facility] Address: [address] Performed By: #### 5 8410-2 ####[facility] [id number] [place] [address] [place] Platelet mean volume (Bld) [Entitic vol] 9.8 fL Normal 9.0-12.7 [facility] Comment on above: Order Comment: Speci men Type: BLOOD SPECIMENOrdering Facility: [facility] Address: [address] [place], [place] [address] Performed By: #### 5 8410-2 ####[facility] LABIA [id number] [place] [address] [place] Platelets (Bld) [#/Vol] 249 10*3/uL Normal 150-400 [facility] Comment on above: Order Comment: Speci men Type: BLOOD SPECIMENOrdering Facility: [facility] Address: [address] [place] [address] Performed By: #### 5 8410-2 ####[facility] LABIA [id number] [place] [address] [place] RBC (Bld) [#/Vol] 4.48 10*6/uL Normal 4.20-6.00 [facility] Comment on above: Order Comment: Speci men Type: BLOOD SPECIMENOrdering Facility: [facility] Address: [address] [place] [address] Performed By: #### 5 8410-2 ####[facility] [id number] [place] [address] [place] WBC (Bld) [#/Vol] 8.92 10*3/uL Normal 3.70-11.00 [facility] Comment on above: Order Comment: Speci men Type: BLOOD SPECIMENOrdering Facility: [facility] Address: [address] [place], [place] [address] Performed By: #### 5 8410-2 ####[facility] [id number] [place] [id number] [place] CONSULTon 03-23-2023 CONSULT Normal [facility] CONSULT Normal [facility] CRP SerPl-mCncon 03-23-2023 CRP [Mass/Vol] 3.0 mg/dL High <0.9 [facility] Comment on above: Order Comment: Speci men Type: BLOOD SPECIMENOrdering Facility: [facility] Address: [address] [place], [place] [address] Performed By: #### 1 988-5 ####[facility] LABCLIA [id number] [place] [address] [place] NM PET/CT CARD PERF REST/STR ESSon 03-23-2023 NM PET/CT CARD PERF REST/STRESS Normal [facility] NM PET/CT CARDIAC VIABILITYo n 03-23-2023 NM PET/CT CARDIAC VIABILITY Normal [facility] NURSING PROGon 03-23-2023 NURSING PROG Normal [facility] PT panel Coag (PPP)on 2022 INR Coag (PPP) [Relative time] 2.1 {INR} High 0.9-1.3 [facility] Comment on above: Order Comment: Speci kaci Type: BLOOD SPECIMENOrdering Facility: [facility] Address: [address] [place], [place] [address] Result Comment: Baylee min K Antagonist (VKA) Therapeutic Range: INR 2 to 3 (Target INR of 2.5)Note: For patients treated with VKA drugs, such as warfarin, the [place] [employer] 2012 Guideline recommends [...] al. Chest 2012, 141:7S-47STrudy RA, et al. [facility] 2017, 70: 252-289 Performed By: #### 3 4528-0 ####[facility] LABIA [id number] [place] [address] [place] PT Coag (PPP) [Time] 20.8 s High 9.7-13.0 [facility] Comment on above: Order Comment: Speci men Type: BLOOD SPECIMENOrdering Facility: [facility] Address: [address] Performed By: #### 3 4528-0 ####[facility] LABCLIA [id number] [place] [address] [place] Prot SerPl-mCncon 03-23-2023 Protein [Mass/Vol] 6.3 g/dL Normal 6.3-8.0 [facility] Comment on above: Order Comment: Speci men Type: BLOOD SPECIMENOrdering Facility: [facility] Address: [address] [address] Performed By: #### 2 4321-2, 2885-2 ####[facility] LABCLIA [id number] [place] [address] [place] XR FOOT 3V AP/LAT/OBL RTon 0 03-23-2023 XR FOOT 3V AP/LAT/OBL RT Normal [facility] Bacteria Wnd Culton 03-22-20 23 Bacteria identified Cx Nom (Wound) Abnormal [facility] Comment on above: Performed By: #### 6 462-6 ####[facility] LABCLIA [id number] [place] [address] [place] Basic metabolic 2000 panelon 03-22-2023 Anion gap [Moles/Vol] 13 mmol/L Normal 9-18 [facility] Comment on above: Order Comment: Speci men Type: BLOOD SPECIMENOrdering Facility: [facility] Address: [address] Performed By: #### 2 4321-2 ####[facility] LABIA [id number] [place] [address] [place] Calcium [Mass/Vol] 9.6 mg/dL Normal 8.5-10.2 [facility] Comment on above: Order Comment: Speci men Type: BLOOD SPECIMENOrdering Facility: [facility] Address: [address] Performed By: #### 2 4321-2 ####[facility] LABCLIA [id number] [place] [address] [place] Chloride [Moles/Vol] 94 mmol/L Low 97-105 [facility] Comment on above: Order Comment: Speci men Type: BLOOD SPECIMENOrdering Facility: [facility] Address: [address] [place] [address] Performed By: #### 2 4321-2 ####[facility] LABCLIA [id number] [place] [address] [place] CO2 [Moles/Vol] 25 mmol/L Normal 22-30 [facility] Comment on above: Order Comment: Speci men Type: BLOOD SPECIMENOrdering Facility: [facility] Address: [address] [place] [address] Performed By: #### 2 4321-2 ####[facility] LABCLIA [id number] [address] [place] Creatinine [Mass/Vol] 2.20 mg/dL High 0.73-1.22 [facility] Comment on above: Order Comment: Speci men Type: BLOOD SPECIMENOrdering Facility: [facility] Address: [address] [place] [address] Performed By: #### 2 4321-2 ####[facility] LABIA [id number] [address] OF [facility] ESTIMATED GLOMERULAR FILTRATION RATE 32 mL/min/1.73m??? Low >=60 [facility] Comment on above: Order Comment: Speci men Type: BLOOD SPECIMENOrdering Facility: [facility] Address: [address] [place] [address] Result Comment: Syl mated Glomerular Filtration Rate [...] actual GFR. Performed By: #### 2 4321-2 ####[facility] LABIA [id number] [place] [address] [place] Glucose [Mass/Vol] 120 mg/dL High 74-99 [facility] Comment on above: Order Comment: Speci men Type: BLOOD SPECIMENOrdering Facility: [facility] Address: [address] [place], [place] [address] Result Comment: The [place] [employer] (ADA) provides guidance for cutoff [...] Standards of Medical Care in Diabetes 2016, [place] [employer]. Diabetes Care. 2016.39(Suppl 1). Performed By: #### 2 4321-2 ####[facility] LABIA [id number] [place] [address] [place] Potassium [Moles/Vol] 4.4 mmol/L Normal 3.7-5.1 [facility] Comment on above: Order Comment: Speci men Type: BLOOD SPECIMENOrdering Facility: [facility] Address: [address] [id number] Performed By: #### 2 4321-2 ####[facility] LABIA [id number] [place] [address] [place] Sodium [Moles/Vol] 132 mmol/L Low 136-144 [facility] Comment on above: Order Comment: Speci men Type: BLOOD SPECIMENOrdering Facility: [facility] Address: [address] Performed By: #### 2 4321-2 ####[facility] LABCLIA [id number] [place] [address] [place] Urea nitrogen [Mass/Vol] 54 mg/dL High 9-24 [facility] Comment on above: Order Comment: Speci men Type: BLOOD SPECIMENOrdering Facility: [facility] Address: [address] [place], [place] [address] Performed By: #### 2 4321-2 ####[facility] LABIA [id number] [address] [place] CASE MANAGEMon 03-22-2023 CASE MANAGEM Normal [facility] CBC panel Auto (Bld)on 03-22 Erythrocyte distribution width (RBC) [Ratio] 20.4 % High 11.5-15.0 [facility] Comment on above: Order Comment: Speci men Type: BLOOD SPECIMENOrdering Facility: [facility] Address: [address] [place], [place] [address] Performed By: #### 5 8410-2 ####[facility] LABIA [id number] [place] [address] [place] Hematocrit (Bld) [Volume fraction] 36.5 % Low 39.0-51.0 [facility] Comment on above: Order Comment: Speci men Type: BLOOD SPECIMENOrdering Facility: [facility] Address: [address] [place], [place] [address] Performed By: #### 5 8410-2 ####[facility] LABIA [id number] [place] [address] [place] Hemoglobin (Bld) [Mass/Vol] 11.2 g/dL Low 13.0-17.0 [facility] Comment on above: Order Comment: Speci men Type: BLOOD SPECIMENOrdering Facility: [facility] Address: [address] [place], [place] [address] Performed By: #### 5 8410-2 ####[facility] LABIA [id number] [address] STATES [facility] MCH (RBC) [Entitic mass] 24.8 pg Low 26.0-34.0 [facility] Comment on above: Order Comment: Speci men Type: BLOOD SPECIMENOrdering Facility: [facility] Address: [address] [place], [place] [address] Performed By: #### 5 8410-2 ####[facility] LABIA [id number] [address] [place] MCHC (RBC) [Mass/Vol] 30.7 g/dL Normal 30.5-36.0 [facility] Comment on above: Order Comment: Speci men Type: BLOOD SPECIMENOrdering Facility: [facility] Address: [address] [place], [place] [address] Performed By: #### 5 8410-2 ####[facility] [id number] [address] [place] MCV (RBC) [Entitic vol] 80.9 fL Normal 80.0-100.0 [facility] Comment on above: Order Comment: Speci men Type: BLOOD SPECIMENOrdering Facility: [facility] [facility] Address: [address] [place], [place] [address] Performed By: #### 5 8410-2 ####[facility] LABIA [id number] [address] [place] Nucleated RBC (Bld) [#/Vol] 0.02 10*3/uL High <0.01 [facility] Comment on above: Order Comment: Speci men Type: BLOOD SPECIMENOrdering Facility: [facility] Address: [address] [place], [place] [address] Performed By: #### 5 8410-2 ####[facility] LABIA [id number] [place] [address] [place] Platelet mean volume (Bld) [Entitic vol] 10.0 fL Normal 9.0-12.7 [facility] Comment on above: Order Comment: Speci men Type: BLOOD SPECIMENOrdering Facility: [facility] Address: [address] [place] [address] Performed By: #### 5 8410-2 ####[facility] LABCLIA [id number] [place] [address] [place] Platelets (Bld) [#/Vol] 244 10*3/uL Normal 150-400 [facility] Comment on above: Order Comment: Speci men Type: BLOOD SPECIMENOrdering Facility: [facility] Address: [address] [place] [address] Performed By: #### 5 8410-2 ####[facility] LABCLIA [id number] [place] [address] [place] RBC (Bld) [#/Vol] 4.51 10*6/uL Normal 4.20-6.00 [facility] Comment on above: Order Comment: Speci men Type: BLOOD SPECIMENOrdering Facility: [facility] Address: [address] [place], [place] [address] Performed By: #### 5 8410-2 ####[facility] LABCLIA [id number] [place] [address] [place] WBC (Bld) [#/Vol] 8.57 10*3/uL Normal 3.70-11.00 [facility] Comment on above: Order Comment: Speci men Type: BLOOD SPECIMENOrdering Facility: [facility] Address: [address] [place], [place] [address] Performed By: #### 5 8410-2 ####[facility] LABCLIA [id number] [place] [address] [place] ALBUMIN/CREAT RATIO RND URon 03-21-2023 Albumin DL <= 20 mg/L (U) [Mass/Vol] 32.9 mg/L Normal [facility] Comment on above: Order Comment: Speci men Type: URINE SPECIMENOrdering Facility: [facility] Address: [address] [place] [address] Performed By: #### U ACR, [id number] ####[facility] LABCLIA [id number] [place] [address] [place] Albumin/Creatinine (U) [Mass ratio] 110 mg/g High <30 [facility] Comment on above: Order Comment: Speci men Type: URINE SPECIMENOrdering Facility: [facility] Address: [address] [place] [address] Result Comment: Adul t Male and Female Nephrotic Criteria:<30 mg/g is considered normal to mildly clqgbcjab59-448 mg/g is considered moderately increased>300 mg/g is considered severely increasedKDIGO. (2013). KDIGO 2012 Clinical Practice Guideline for the Evaluation and Management of Chronic Kidney Disease. Official Journal of the International Society of Nephrology, 3(1), 1-150. Performed By: #### U ACR, [id number] ####[facility] LABCLIA [id number] [place] [address] [place] Creatinine (U) [Mass/Vol] 29.9 mg/dL Normal 20.0-300.0 [facility] Comment on above: Order Comment: Speci men Type: URINE SPECIMENOrdering Facility: [facility] Address: [address] [place] [address] Performed By: #### U ACR, [id number] ####[facility] LABCLIA [id number] [place] [address] [place] Bacteria Bld Culton 03-21-20 23 Bacteria identified Cx Nom (Bld) CULTURE, BLOOD: No growth 5 days Normal [facility] Comment on above: Performed By: #### 6 00-7 ####[facility] LABCLIA [id number] [place] [address] [place] Basic metabolic 2000 panelon 03-21-2023 Anion gap [Moles/Vol] 15 mmol/L Normal 9-18 [facility] Comment on above: Order Comment: Speci men Type: BLOOD SPECIMENOrdering Facility: [facility] Address: [address] [place] [address] Performed By: #### L ME1913, 16458-8, 3016-3, 2532-0 ####[facility] LABCLIA [id number] [place] [address] [place] Calcium [Mass/Vol] 9.5 mg/dL Normal 8.5-10.2 [facility] Comment on above: Order Comment: Speci men Type: BLOOD SPECIMENOrdering Facility: [facility] Address: [address] [place] [address] Performed By: #### L JO1182, 34831-2, 3016-3, 2532-0 ####[facility] LABCLIA [id number] [place] [address] [place] Chloride [Moles/Vol] 95 mmol/L Low 97-105 [facility] Comment on above: Order Comment: Speci men Type: BLOOD SPECIMENOrdering Facility: [facility] Address: [address] [place] [address] Performed By: #### L [id number], 28524-2, 3016-3, 2532-0 ####[facility] LABCLIA [id number] [place] [address] [place] CO2 [Moles/Vol] 25 mmol/L Normal 22-30 [facility] Comment on above: Order Comment: Speci men Type: BLOOD SPECIMENOrdering Facility: [facility] Address: [address] [place] [address] Performed By: #### L [id number], 27430-2, 3016-3, 2532-0 ####[facility] LABCLIA [id number] [place] [id number] [place] Creatinine [Mass/Vol] 2.13 mg/dL High 0.73-1.22 [facility] Comment on above: Order Comment: Joseline clemons Type: BLOOD SPECIMENOrdering Facility: [facility] Address: [address] [id number] Performed By: #### L PT3310, 61033-0, 3016-3, 2532-0 ####[facility] LABCLIA [id number] [place] [address] [place] ESTIMATED GLOMERULAR FILTRATION RATE 34 mL/min/1.73m??? Low >=60 [facility] Comment on above: Order Comment: Joseline clemons Type: BLOOD SPECIMENOrdering Facility: [facility] Address: [address] [place] [address] Result Comment: Syl mated Glomerular Filtration Rate [...] accurately reflect actual GFR. Performed By: #### L UT8664, 58334-2, 3016-3, 2532-0 ####[facility] LABCLIA [id number] [place] [id number] [place] Glucose [Mass/Vol] 49 mg/dL Low 74-99 [facility] Comment on above: Order Comment: Joseline clemons Type: BLOOD SPECIMENOrdering Facility: [facility] Address: [address] [place] [address] Result Comment: The [place] [employer] (ADA) provides guidance for cutoff [...] Standards of Medical Care in Diabetes 2016, [place] [employer]. Diabetes Care. 2016.39(Suppl 1). Performed By: #### L HN6010, 82076-0, 3016-3, 2532-0 ####[facility] LABCLIA [id number] [place] [address] [place] Potassium [Moles/Vol] 4.6 mmol/L Normal 3.7-5.1 [facility] Comment on above: Order Comment: Joseline clemons Type: BLOOD SPECIMENOrdering Facility: [facility] Address: [address] [place] [address] Performed By: #### L PI5953, 35657-5, 6-3, 253-0 ####[facility] LABCLIA [id number] [place] [address] [place] Sodium [Moles/Vol] 135 mmol/L Low 136-144 [facility] Comment on above: Order Comment: Joseline clemons Type: BLOOD SPECIMENOrdering Facility: [facility] Address: [address] [place] [address] Performed By: #### L GI8122, 22620-7, 3016-3, 253-0 ####[facility] LABCLIA [id number] [place] [address] [place] Urea nitrogen [Mass/Vol] 52 mg/dL High 9-24 [facility] Comment on above: Order Comment: Reneei men Type: BLOOD SPECIMENOrdering Facility: [facility] Address: [address] [place] [address] Performed By: #### L [id number], 09053-9, 3016-3, 2532-0 ####[facility] LABCLIA [id number] [place] [address] [place] CASE MGT INIT ASSESon 2022 CASE MGT INIT ASSES Normal [facility] CBC W Auto Differential pane l (Bld)on 03-21-2023 Basophils (Bld) [#/Vol] 0.07 10*3/uL Normal <0.11 [facility] Comment on above: Order Comment: Speci men Type: BLOOD SPECIMENOrdering Facility: [facility] Address: [address] [place] [address] Performed By: #### 5 7021-8 ####[facility] LABCLIA [id number] [address] [place] Basophils/100 WBC (Bld) 0.8 % Normal [facility] Comment on above: Order Comment: Speci men Type: BLOOD SPECIMENOrdering Facility: [facility] Address: [address] [place] [address] Performed By: #### 5 7021-8 ####[facility] LABCLIA [id number] [place] [address] [place] Differential cell count method Nom (Bld) Auto Normal [facility] Comment on above: Order Comment: Speci men Type: BLOOD SPECIMENOrdering Facility: [facility] Address: [address] [place] [address] Performed By: #### 5 7021-8 ####[facility] LABCLIA [id number] [place] [address] [place] Eosinophils (Bld) [#/Vol] 0.19 10*3/uL Normal <0.46 [facility] Comment on above: Order Comment: Speci men Type: BLOOD SPECIMENOrdering Facility: [facility] Address: [address] [place] [address] Performed By: #### 5 7021-8 ####[facility] LABCLIA [id number] [place] [address] [place] Eosinophils/100 WBC (Bld) 2.2 % Normal [facility] Comment on above: Order Comment: Speci men Type: BLOOD SPECIMENOrdering Facility: [facility] Address: [address] [place] [address] Performed By: #### 5 7021-8 ####[facility] LABIA [id number] [place] [address] [place] Erythrocyte distribution width (RBC) [Ratio] 20.3 % High 11.5-15.0 [facility] Comment on above: Order Comment: Speci men Type: BLOOD SPECIMENOrdering Facility: [facility] Address: [address] [place] [address] Performed By: #### 5 7021-8 ####[facility] LABIA [id number] [place] [address] [place] Hematocrit (Bld) [Volume fraction] 36.3 % Low 39.0-51.0 [facility] Comment on above: Order Comment: Speci men Type: BLOOD SPECIMENOrdering Facility: [facility] Address: [address] [place], [place] [address] Performed By: #### 5 7021-8 ####[facility] LABIA [id number] [place] [address] [place] Hemoglobin (Bld) [Mass/Vol] 11.2 g/dL Low 13.0-17.0 [facility] Comment on above: Order Comment: Speci men Type: BLOOD SPECIMENOrdering Facility: [facility] Address: [address] [place], [place] [address] Performed By: #### 5 7021-8 ####[facility] LABIA [id number] [place] [address] [place] Immature granulocytes (Bld) [#/Vol] 0.04 10*3/uL Normal <0.10 [facility] Comment on above: Order Comment: Speci men Type: BLOOD SPECIMENOrdering Facility: [facility] Address: [address] [place] [address] Performed By: #### 5 7021-8 ####[facility] LABIA [id number] [address] Immature granulocytes/100 WBC (Bld) 0.5 % Normal [facility] Comment on above: Order Comment: Speci men Type: BLOOD SPECIMENOrdering Facility: [facility] Address: [address] [address] Performed By: #### 5 7021-8 ####[facility] LABIA [id number] [place] [address] [place] Lymphocytes (Bld) [#/Vol] 0.75 10*3/uL Low 1.00-4.00 [facility] Comment on above: Order Comment: Speci men Type: BLOOD SPECIMENOrdering Facility: [facility] Address: [address] [place] [address] Performed By: #### 5 7021-8 ####[facility] LABIA [id number] [address] Lymphocytes/100 WBC (Bld) 8.9 % Normal [facility] Comment on above: Order Comment: Speci men Type: BLOOD SPECIMENOrdering Facility: [facility] Address: [address] [place] [address] Performed By: #### 5 7021-8 ####[facility] LABIA [id number] [place] [address] [place] MCH (RBC) [Entitic mass] 24.9 pg Low 26.0-34.0 [facility] Comment on above: Order Comment: Speci men Type: BLOOD SPECIMENOrdering Facility: [facility] Address: [address] [place] [address] Performed By: #### 5 7021-8 ####[facility] LABIA [id number] [address] [place] MCHC (RBC) [Mass/Vol] 30.9 g/dL Normal 30.5-36.0 [facility] Comment on above: Order Comment: Speci men Type: BLOOD SPECIMENOrdering Facility: [facility] Address: [address] [place] [address] Performed By: #### 5 7021-8 ####[facility] LABCLIA [id number] [place] [address] [place] MCV (RBC) [Entitic vol] 80.7 fL Normal 80.0-100.0 [facility] Comment on above: Order Comment: Speci men Type: BLOOD SPECIMENOrdering Facility: [facility] Address: [address] [place] [address] Performed By: #### 5 7021-8 ####[facility] LABIA [id number] [place] [address] [place] Monocytes (Bld) [#/Vol] 0.70 10*3/uL Normal <0.87 [facility] Comment on above: Order Comment: Speci men Type: BLOOD SPECIMENOrdering Facility: [facility] Address: [address] [place] [address] Performed By: #### 5 7021-8 ####[facility] LABIA [id number] [place] [address] [place] Monocytes/100 WBC (Bld) 8.3 % Normal [facility] Comment on above: Order Comment: Speci men Type: BLOOD SPECIMENOrdering Facility: [facility] Address: [address] [place] [address] Performed By: #### 5 7021-8 ####[facility] LABCLIA [id number] [place] [address] [place] Neutrophils (Bld) [#/Vol] 6.71 10*3/uL Normal 1.45-7.50 [facility] Comment on above: Order Comment: Speci men Type: BLOOD SPECIMENOrdering Facility: [facility] Address: [address] Performed By: #### 5 7021-8 ####[facility] LABIA [id number] [address] STATES OF [facility] Neutrophils/100 WBC (Bld) 79.3 % Normal [facility] Comment on above: Order Comment: Speci men Type: BLOOD SPECIMENOrdering Facility: [facility] Address: [address] Performed By: #### 5 7021-8 ####[facility] LABIA [id number] [place] [address] [place] Nucleated RBC (Bld) [#/Vol] 0.03 10*3/uL High <0.01 [facility] Comment on above: Order Comment: Speci men Type: BLOOD SPECIMENOrdering Facility: [facility] Address: [address] Performed By: #### 5 7021-8 ####[facility] LABIA [id number] [place] [address] [place] Nucleated RBC/100 WBC (Bld) [Ratio] 0.4 /100 WBC Normal [facility] Comment on above: Order Comment: Speci men Type: BLOOD SPECIMENOrdering Facility: [facility] Address: [address] Performed By: #### 5 7021-8 ####[facility] LABIA [id number] [place] [address] [place] Platelet mean volume (Bld) [Entitic vol] 9.4 fL Normal 9.0-12.7 [facility] Comment on above: Order Comment: Speci men Type: BLOOD SPECIMENOrdering Facility: [facility] Address: [address] Performed By: #### 5 7021-8 ####[facility] LABCLIA [id number] [place] [address] [place] Platelets (Bld) [#/Vol] 255 10*3/uL Normal 150-400 [facility] Comment on above: Order Comment: Speci men Type: BLOOD SPECIMENOrdering Facility: [facility] Address: [address] [place] [address] Performed By: #### 5 7021-8 ####[facility] LABIA [id number] [place] [address] [place] RBC (Bld) [#/Vol] 4.50 10*6/uL Normal 4.20-6.00 [facility] Comment on above: Order Comment: Speci men Type: BLOOD SPECIMENOrdering Facility: [facility] Address: [address] [place] [address] Performed By: #### 5 7021-8 ####[facility] LABIA [id number] [place] [address] [place] WBC (Bld) [#/Vol] 8.46 10*3/uL Normal 3.70-11.00 [facility] Comment on above: Order Comment: Speci men Type: BLOOD SPECIMENOrdering Facility: [facility] Address: [address] [place] [address] Performed By: #### 5 7021-8 ####[facility] LABIA [id number] [address] STATES OF [facility] CBC panel Auto (Bld)on 03-21 Erythrocyte distribution width (RBC) [Ratio] 20.3 % High 11.5-15.0 [facility] Comment on above: Order Comment: Speci men Type: BLOOD SPECIMENOrdering Facility: [facility] Address: [address] [place] [address] Performed By: #### 5 8410-2 ####[facility] LABIA [id number] [place] [address] [place] Hematocrit (Bld) [Volume fraction] 38.6 % Low 39.0-51.0 [facility] Comment on above: Order Comment: Speci men Type: BLOOD SPECIMENOrdering Facility: [facility] Address: [address] [place] [address] Performed By: #### 5 8410-2 ####[facility] LABIA [id number] [address] [place] Hemoglobin (Bld) [Mass/Vol] 11.6 g/dL Low 13.0-17.0 [facility] Comment on above: Order Comment: Speci men Type: BLOOD SPECIMENOrdering Facility: [facility] Address: [address] [place] [address] Performed By: #### 5 8410-2 ####[facility] LABIA [id number] [address] STATES OF [facility] MCH (RBC) [Entitic mass] 24.7 pg Low 26.0-34.0 [facility] Comment on above: Order Comment: Speci men Type: BLOOD SPECIMENOrdering Facility: [facility] Address: [address] [place] [address] Performed By: #### 5 8410-2 ####[facility] LABIA [id number] [place] [address] [place] MCHC (RBC) [Mass/Vol] 30.1 g/dL Low 30.5-36.0 [facility] Comment on above: Order Comment: Speci men Type: BLOOD SPECIMENOrdering Facility: [facility] Address: [address] [place], [place] [address] Performed By: #### 5 8410-2 ####[facility] LABCLIA [id number] [place] [address] [place] MCV (RBC) [Entitic vol] 82.1 fL Normal 80.0-100.0 [facility] Comment on above: Order Comment: Speci men Type: BLOOD SPECIMENOrdering Facility: [facility] Address: [address] [place], [place] [address] Performed By: #### 5 8410-2 ####[facility] LABIA [id number] [place] [address] [place] Nucleated RBC (Bld) [#/Vol] 0.03 10*3/uL High <0.01 [facility] Comment on above: Order Comment: Speci men Type: BLOOD SPECIMENOrdering Facility: [facility] Address: [address] [place], [place] [address] Performed By: #### 5 8410-2 ####[facility] LABIA [id number] [place] [address] [place] Platelet mean volume (Bld) [Entitic vol] 9.5 fL Normal 9.0-12.7 [facility] Comment on above: Order Comment: Speci men Type: BLOOD SPECIMENOrdering Facility: [facility] Address: [address] [place], [place] [address] Performed By: #### 5 8410-2 ####[facility] LABIA [id number] [place] [address] [place] Platelets (Bld) [#/Vol] 265 10*3/uL Normal 150-400 [facility] Comment on above: Order Comment: Speci men Type: BLOOD SPECIMENOrdering Facility: [facility] Address: [address] [place], [place] [address] Performed By: #### 5 8410-2 ####[facility] LABIA [id number] [place] [address] [place] RBC (Bld) [#/Vol] 4.70 10*6/uL Normal 4.20-6.00 [facility] Comment on above: Order Comment: Speci men Type: BLOOD SPECIMENOrdering Facility: [facility] Address: [address] Performed By: #### 5 8410-2 ####[facility] LABIA [id number] [place] [address] [place] WBC (Bld) [#/Vol] 8.61 10*3/uL Normal 3.70-11.00 [facility] Comment on above: Order Comment: Speci men Type: BLOOD SPECIMENOrdering Facility: [facility] Address: [address] Performed By: #### 5 8410-2 ####[facility] LABIA [id number] [place] [address] [place] CRP SerPl-ncon 03-21-2023 CRP [Mass/Vol] 2.1 mg/dL High <0.9 [facility] Comment on above: Order Comment: Speci men Type: BLOOD SPECIMENOrdering Facility: [facility] Address: [address] [place], [place] [address] Performed By: #### 1 988-5 ####[facility] LABIA [id number] [place] [address] [place] Comprehensive metabolic 2000 panelon 03-21-2023 Albumin [Mass/Vol] 3.6 g/dL Low 3.9-4.9 [facility] Comment on above: Order Comment: Speci men Type: BLOOD SPECIMENOrdering Facility: [facility] Address: [address] [place], [place] [address] Performed By: #### 2 4323-8 ####[facility] LABIA [id number] [place] [address] [place] ALP [Catalytic activity/Vol] 159 U/L High 38-113 [facility] Comment on above: Order Comment: Speci men Type: BLOOD SPECIMENOrdering Facility: [facility] Address: [address] [place], [place] [address] Performed By: #### 2 4323-8 ####[facility] LABCLIA [id number] [place] [address] [place] ALT [Catalytic activity/Vol] 17 U/L Normal 10-54 [facility] Comment on above: Order Comment: Speci men Type: BLOOD SPECIMENOrdering Facility: [facility] Address: [address] [place] [address] Performed By: #### 2 4323-8 ####[facility] LABCLIA [id number] [place] [address] [place] Anion gap [Moles/Vol] 12 mmol/L Normal 9-18 [facility] Comment on above: Order Comment: Speci men Type: BLOOD SPECIMENOrdering Facility: [facility] Address: [address] [place] [address] Performed By: #### 2 4323-8 ####[facility] LABCLIA [id number] [place] [address] [place] AST [Catalytic activity/Vol] 19 U/L Normal 14-40 [facility] Comment on above: Order Comment: Speci men Type: BLOOD SPECIMENOrdering Facility: [facility] Address: [address] [place] [address] Performed By: #### 2 4323-8 ####[facility] LABCLIA [id number] [place] [address] [place] Bilirubin [Mass/Vol] 2.2 mg/dL High 0.2-1.3 [facility] Comment on above: Order Comment: Speci men Type: BLOOD SPECIMENOrdering Facility: [facility] Address: [address] [place], [place] [address] Performed By: #### 2 4323-8 ####[facility] LABCLIA [id number] [place] [address] [place] Calcium [Mass/Vol] 9.6 mg/dL Normal 8.5-10.2 [facility] Comment on above: Order Comment: Speci men Type: BLOOD SPECIMENOrdering Facility: [facility] Address: [address] [address] Performed By: #### 2 4323-8 ####[facility] LABCLIA [id number] [place] [address] [place] Chloride [Moles/Vol] 96 mmol/L Low 97-105 [facility] Comment on above: Order Comment: Speci men Type: BLOOD SPECIMENOrdering Facility: [facility] Address: [address] [address] Performed By: #### 2 4323-8 ####[facility] LABCLIA [id number] [place] [address] [place] CO2 [Moles/Vol] 26 mmol/L Normal 22-30 [facility] Comment on above: Order Comment: Speci men Type: BLOOD SPECIMENOrdering Facility: [facility] Address: [address] [address] Performed By: #### 2 4323-8 ####[facility] LABCLIA [id number] [place] [address] [place] Creatinine [Mass/Vol] 2.11 mg/dL High 0.73-1.22 [facility] Comment on above: Order Comment: Speci men Type: BLOOD SPECIMENOrdering Facility: [facility] Address: [address] Performed By: #### 2 4323-8 ####[facility] LABCLIA [id number] [place] [address] [place] ESTIMATED GLOMERULAR FILTRATION RATE 34 mL/min/1.73m??? Low >=60 [facility] Comment on above: Order Comment: Speci men Type: BLOOD SPECIMENOrdering Facility: [facility] Address: [address] [place] [address] Result Comment: Syl mated Glomerular Filtration Rate [...] actual GFR. Performed By: #### 2 4323-8 ####[facility] LABIA [id number] [place] [address] [place] Glucose [Mass/Vol] 133 mg/dL High 74-99 [facility] Comment on above: Order Comment: Speci kaci Type: BLOOD SPECIMENOrdering Facility: [facility] Address: [address] [address] Result Comment: The [place] Diabetes Association (ADA) provides guidance for cutoff [...] Standards of Medical Care in Diabetes 2016, [place] [employer]. Diabetes Care. 2016.39(Suppl 1). Performed By: #### 2 4323-8 ####[facility] LABIA [id number] [place] [id number] [place] Potassium [Moles/Vol] 4.6 mmol/L Normal 3.7-5.1 [facility] Comment on above: Order Comment: Joseline clemons Type: BLOOD SPECIMENOrdering Facility: [facility] Address: [address] [phone] Performed By: #### 2 4323-8 ####[facility] LABIA [id number] [place] [address] [place] Protein [Mass/Vol] 6.4 g/dL Normal 6.3-8.0 [facility] Comment on above: Order Comment: Speci men Type: BLOOD SPECIMENOrdering Facility: [facility] Address: [address] [address] Performed By: #### 2 4323-8 ####[facility] LABCLIA [id number] [place] [address] [place] Sodium [Moles/Vol] 134 mmol/L Low 136-144 [facility] Comment on above: Order Comment: Speci men Type: BLOOD SPECIMENOrdering Facility: [facility] Address: [address] [address] Performed By: #### 2 4323-8 ####[facility] LABCLIA [id number] [place] [address] [place] Urea nitrogen [Mass/Vol] 53 mg/dL High 9-24 [facility] Comment on above: Order Comment: Speci men Type: BLOOD SPECIMENOrdering Facility: [facility] Address: [address] Performed By: #### 2 4323-8 ####[facility] LABCLIA [id number] [place] [address] [place] ESR Westergren method (Bld) [Velocity]on 03-21-2023 ESR (Bld) [Velocity] 5 mm/h Normal 0-15 [facility] Comment on above: Order Comment: Speci men Type: BLOOD SPECIMENOrdering Facility: [facility] Address: [address] Performed By: #### 4 537-7 ####[facility] LABCLIA [id number] [place] [address] [place] HbA1c (Bld)on 03-21-2023 Average glucose Estimated from glycated hemoglobin (Bld) [Mass/Vol] 160 mg/dL Normal [facility] Comment on above: Order Comment: Joseline clemons Type: BLOOD SPECIMENOrdering Facility: [facility] Address: [address] [place] [address] Result Comment: eAG: (Estimated average glucose) is a calculated value from HgbA1c and is cash applications representative of the average blood glucose level in the last 2-3 month period. Performed By: #### 5 5454-3 ####[facility] LABCLIA [id number] [place] [address] [place] HbA1c (Bld) [Mass fraction] 7.2 % High 4.3-5.6 [facility] Comment on above: Order Comment: Joseline men Type: BLOOD SPECIMENOrdering Facility: [facility] Address: [address] [place] [address] Result Comment: [place] Diabetes Association guidelines indicate that patients with HgbA1c in the range 5.7-6.4% are at increased risk for development of diabetes, and intervention by lifestyle modification may be beneficial. HgbA1c greater or equal to 6.5% is considered diagnostic of diabetes. Performed By: #### 5 5454-3 ####[facility] LABIA [id number] [place] [address] [place] LDH SerPl-cCncon 03-21-2023 LDH [Catalytic activity/Vol] 265 U/L High 135-225 [facility] Comment on above: Order Comment: Joseline clemons Type: BLOOD SPECIMENOrdering Facility: [facility] Address: [address] [place] [address] Performed By: #### L [id number], 82139-8, 3016-3, 2532-0 ####[facility] LABIA [id number] [place] [address] [place] PROTEIN ELECTROPHORESIS SERU M (P)on 03-21-2023 Albumin [Mass/Vol] 3.32 g/dL Low 3.43-5.41 [facility] Comment on above: Order Comment: Joseline clemons Type: BLOOD SPECIMENOrdering Facility: [facility] Address: [address] [place] [address] Performed By: #### L [id number], 61418-2, 6-3, 253-0 ####[facility] LABCLIA [id number] [place] [address] [place] Alpha 1 globulin Elph [Mass/Vol] 0.43 g/dL Normal 0.18-0.43 [facility] Comment on above: Order Comment: Speci men Type: BLOOD SPECIMENOrdering Facility: [facility] Address: [address] [place] [address] Performed By: #### L [id number], 85754-0, 3015-3, 2531-0 ####[facility] LABCLIA [id number] [place] [address] [place] Alpha 2 globulin Elph [Mass/Vol] 0.88 g/dL Normal 0.42-0.98 [facility] Comment on above: Order Comment: Speci men Type: BLOOD SPECIMENOrdering Facility: [facility] Address: [address] [place] [address] Performed By: #### L [id number], 16216-2, 3, 2531-0 ####[facility] LABCLIA [id number] [place] [address] [place] Beta globulin Elph [Mass/Vol] 0.89 g/dL Normal 0.61-1.17 [facility] Comment on above: Order Comment: Speci men Type: BLOOD SPECIMENOrdering Facility: [facility] Address: [address] [place], [place] [address] Performed By: #### L [id number], 64710-7, 3015-3, 2531-0 ####[facility] LABCLIA [id number] [place] [address] [place] Gamma globulin Elph [Mass/Vol] 0.78 g/dL Normal 0.53-1.51 [facility] Comment on above: Order Comment: Speci men Type: BLOOD SPECIMENOrdering Facility: [facility] Address: [address] Performed By: #### L [id number], 13513-0, 3016-3, 2532-0 ####[facility] LABCLIA [id number] [address] [place] INTERPRETATION COMMENT FOR PROTEIN ELECTROPHORESIS Normal [facility] Comment on above: Order Comment: Speci men Type: BLOOD SPECIMENOrdering Facility: [facility] Address: [address] [place] [address] Performed By: #### L [id number], 84984-7, 3016-3, 253-0 ####[facility] LABCLIA [id number] [address] [place] M-PROTEIN LOCATION Normal [facility] Comment on above: Order Comment: Speci men Type: BLOOD SPECIMENOrdering Facility: [facility] Address: [address] [place] [address] Result Comment: Not Applicable. Performed By: #### L [id number], 71632-2, 6-3, 2532-0 ####[facility] LABCLIA [id number] [address] [place] Protein Fractions [Interp] An atypical region of restricted mobility is identified on protein electrophoresis. Abnormal No definitive M protein is identified on protein electrophor esis. [facility] Comment on above: Order Comment: Speci men Type: BLOOD SPECIMENOrdering Facility: [facility] Address: [address] [place], [place] [address] Performed By: #### L [id number], 07039-4, 3016-3, 2532-0 ####[facility] LABCLIA [id number] [place] [address] [place] Protein.monoclonal Elph [Mass/Vol] 0.00 g/dL Normal <=0.00 [facility] Comment on above: Order Comment: Speci men Type: BLOOD SPECIMENOrdering Facility: [facility] Address: [address] [place] [address] Performed By: #### L HH1621, 87350-5, 3016-3, 2532-0 ####[facility] LABCLIA [id number] [address] STATES OF [facility] SPE STAFF REVIEW Reviewed by Angeles Russo MD [facility] Comment on above: Order Comment: Speci men Type: BLOOD SPECIMENOrdering Facility: [facility] Address: [address] [place] [address] Performed By: #### L [id number], 44336-4, 6-3, 2532-0 ####[facility] LABCLIA [id number] [address] [place] Prot/Creat Uron 03-21-2023 Protein/Creatinine (U) [Mass ratio] 0.24 mg/mg High <0.15 [facility] Comment on above: Order Comment: Speci men Type: URINE SPECIMENOrdering Facility: [facility] Address: [address] [place] [address] Result Comment: Adul t Proteinuria Categories:<0.15 mg/mg is considered normal to mildly increased0.15 - 0.50 mg/mg is considered moderately increased>0.50 mg/mg is considered severely increasedKDIGO. (2013). KDIGO 2012 Clinical Practice Guideline for the Evaluation and Management of Chronic Kidney Disease. Official Journal of the International Society of Nephrology, 3(1), 1-150. Performed By: #### 2 890-2 ####[facility] LABCLIA [id number] [address] [place] Protein/Creatinine (U) [Mass ratio]on 03-21-2023 Creatinine (U) [Mass/Vol] 28.9 mg/dL Normal 20.0-300.0 [facility] Comment on above: Order Comment: Speci men Type: URINE SPECIMENOrdering Facility: [facility] Address: [address] [phone] Performed By: #### 2 890-2 ####[facility] LABIA [id number] [address] [place] Protein (U) [Mass/Vol] 7 mg/dL Normal 0-20 [facility] Comment on above: Order Comment: Speci men Type: URINE SPECIMENOrdering Facility: [facility] Address: [address] [place] [address] Performed By: #### 2 890-2 ####[facility] LABIA [id number] [address] [place] THERAPY NTon 03-21-2023 THERAPY NT Normal [facility] THERAPY NT Normal [facility] TSH SerPl-aCncon 03-21-2023 TSH Qn 3.650 m[IU]/L Normal 0.270-4.200 [facility] Comment on above: Order Comment: Speci men Type: BLOOD SPECIMENOrdering Facility: [facility] Address: [address] [place] [address] Performed By: #### L [id number], 91750-4, 3016-3, 2532-0 ####[facility] LABCLIA [id number] [place] [address] [place] URINE PROTEIN ELECTROPHORESI S RANDOM (P)on 03-21-2023 Albumin Elph (U) [Mass fraction] 73.16 % Normal [facility] Comment on above: Order Comment: Speci men Type: URINE SPECIMENOrdering Facility: [facility] Address: [address] [place] [address] Performed By: #### U ACR, [id number] ####[facility] LABCLIA [id number] [place] [address] [place] Alpha 1 globulin Elph (U) [Mass fraction] 7.98 % Normal [facility] Comment on above: Order Comment: Speci men Type: URINE SPECIMENOrdering Facility: [facility] Address: [address] Performed By: #### U ACR, [id number] ####[facility] LABCLIA [id number] [place] [address] [place] Alpha 2 globulin Elph (U) [Mass fraction] 6.92 % Normal [facility] Comment on above: Order Comment: Speci men Type: URINE SPECIMENOrdering Facility: [facility] Address: [address] Performed By: #### U ACR, [id number] ####[facility] LABCLIA [id number] [place] [address] [place] Beta globulin Elph (U) [Mass fraction] 9.94 % Normal [facility] Comment on above: Order Comment: Speci men Type: URINE SPECIMENOrdering Facility: [facility] Address: [address] Performed By: #### U ACR, [id number] ####[facility] LABCLIA [id number] [address] [place] Gamma globulin Elph (U) [Mass fraction] 2.00 % Normal [facility] Comment on above: Order Comment: Speci men Type: URINE SPECIMENOrdering Facility: [facility] Address: [address] Performed By: #### U ACR, [id number] ####[facility] LABCLIA [id number] [place] [address] [place] INTERPRETATION COMMENT FOR PROTEIN ELECTROPHORESIS Normal [facility] Comment on above: Order Comment: Speci men Type: URINE SPECIMENOrdering Facility: [facility] Address: [address] Performed By: #### U ACR, [id number] ####[facility] LABCLIA [id number] [facility] [address] Protein Fractions Elph Jarrod (U) [Interp] No definitive M protein is identified on protein electrophoresis. Normal No definitive M protein is identified on protein electrophor esis. [facility] Comment on above: Order Comment: Speci men Type: URINE SPECIMENOrdering Facility: [facility] Address: [address] [place] [address] Performed By: #### U ACR, [id number] ####[facility] LABCLIA [id number] [address] STAFF REVIEW (URINE ELECTRO) Reviewed by Angeles Russo MD Normal [facility] Comment on above: Order Comment: Speci men Type: URINE SPECIMENOrdering Facility: [facility] Address: [address] [place] [address] Performed By: #### U ACR, [id number] ####[facility] LABCLIA [id number] [address] [place] US KIDNEY/BLADDERon 03-21-20 US KIDNEY/BLADDER Normal [facility] Urinalysis complete panel (U )on 03-21-2023 Bilirubin Ql (U) Negative Normal Negative [facility] Comment on above: Order Comment: Speci men Type: URINE SPECIMENOrdering Facility: [facility] Address: [address] [place] [address] Performed By: #### 2 4356-8 ####[facility] LABCLIA [id number] [address] [place] Clarity (Unsp spec) Clear Normal Clear [facility] Comment on above: Order Comment: Speci men Type: URINE SPECIMENOrdering Facility: [facility] Address: [address] [place] [address] Performed By: #### 2 4356-8 ####[facility] LABCLIA [id number] [address] OF [facility] Color (U) Light Yellow Normal Yellow [facility] Comment on above: Order Comment: Speci men Type: URINE SPECIMENOrdering Facility: [facility] Address: [address] Performed By: #### 2 4356-8 ####[facility] LABCLIA [id number] [place] [address] [place] Epithelial cells LM.HPF (Urine sed) [#/Area] Few Normal [facility] Comment on above: Order Comment: Speci men Type: URINE SPECIMENOrdering Facility: [facility] Address: [address] Performed By: #### 2 4356-8 ####[facility] LABCLIA [id number] [place] [address] [place] Glucose Test strip (U) [Mass/Vol] Negative Normal Trace, Negative [facility] Comment on above: Order Comment: Speci men Type: URINE SPECIMENOrdering Facility: [facility] Address: [address] Performed By: #### 2 4356-8 ####[facility] LABCLIA [id number] [place] [address] [place] Hemoglobin Ql (U) Negative Normal Negative, Trace [facility] Comment on above: Order Comment: Speci men Type: URINE SPECIMENOrdering Facility: [facility] Address: [address] Performed By: #### 2 4356-8 ####[facility] LABCLIA [id number] [place] [address] [place] Ketones Ql (U) Negative Normal Trace, Negative [facility] Comment on above: Order Comment: Speci men Type: URINE SPECIMENOrdering Facility: [facility] Address: [address] Performed By: #### 2 4356-8 ####[facility] LABCLIA [id number] [address] [place] Leukocyte esterase Test strip Ql (U) Negative Normal Negative, 25 Aron/uL [facility] Comment on above: Order Comment: Speci men Type: URINE SPECIMENOrdering Facility: [facility] Address: [address] [place] [address] Performed By: #### 2 4356-8 ####[facility] LABCLIA [id number] [place] [address] [place] Nitrite Ql (U) Negative Normal Negative [facility] Comment on above: Order Comment: Speci men Type: URINE SPECIMENOrdering Facility: [facility] Address: [address] [place] [address] Performed By: #### 2 4356-8 ####[facility] LABCLIA [id number] [place] [address] [place] pH (U) 6.5 [pH] Normal 5.0-8.0 [facility] Comment on above: Order Comment: Speci men Type: URINE SPECIMENOrdering Facility: [facility] Address: [address] [place] [address] Performed By: #### 2 4356-8 ####[facility] LABCLIA [id number] [address] [place] Protein (U) [Mass/Vol] Negative Normal Trace, Negative [facility] Comment on above: Order Comment: Speci men Type: URINE SPECIMENOrdering Facility: [facility] Address: [address] [place] [address] Performed By: #### 2 4356-8 ####[facility] LABIA [id number] [place] [address] [place] RBC LM.HPF (Urine sed) [#/Area] 0-3 /HPF Normal 0-3 /HPF [facility] Comment on above: Order Comment: Speci men Type: URINE SPECIMENOrdering Facility: [facility] Address: [address] [address] Performed By: #### 2 4356-8 ####[facility] LABCLIA [id number] [place] [address] [place] Specific gravity (U) [Rel density] 1.009 Normal 1.005-1.030 [facility] Comment on above: Order Comment: Speci men Type: URINE SPECIMENOrdering Facility: [facility] Address: [address] [place] [address] Performed By: #### 2 4356-8 ####[facility] LABIA [id number] [place] [address] [place] Urobilinogen Ql (U) 1+ Abnormal Negative [facility] Comment on above: Order Comment: Speci men Type: URINE SPECIMENOrdering Facility: [facility] Address: [address] [place] [address] Performed By: #### 2 4356-8 ####[facility] LABIA [id number] [place] [address] [place] WBC LM.HPF (Urine sed) [#/Area] 0-5 /HPF Normal 0-5 /HPF [facility] Comment on above: Order Comment: Speci men Type: URINE SPECIMENOrdering Facility: [facility] Address: [address] [place] [address] Performed By: #### 2 4356-8 ####[facility] LABIA [id number] [place] [address] [place] Basic Metabolic Profon 03-20 Anion gap [Moles/Vol] 12 mmol/L Normal 9-[address] [facility] Comment on above: Performed By: #### B MP #### [facility] [address] [place] [address] Chief Of Safety And Protection: Sy Rojas MD BUN/CRE Ratio 25 High 9-20 [facility] Comment on above: Performed By: #### B MP #### [facility] [address] [place], [place] [address] Chief Of Safety And Protection: Sy Rojas MD Calcium [Mass/Vol] 9.5 mg/dL Normal 8.6-10.4 [facility] Comment on above: Performed By: #### B MP #### [facility] [address] [place], [place] [address] Chief Of Safety And Protection: Sy Rojas MD Chloride [Moles/Vol] 94 mmol/L Low 98-107 [facility] Comment on above: Performed By: #### B MP #### [facility] [address] [place], [place] [address] Chief Of Safety And Protection: Sy Rojas MD CO2 [Moles/Vol] 26 mmol/L Normal 20-31 [facility] Comment on above: Performed By: #### B MP #### [facility] [address] [place], [place] [address] Chief Of Safety And Protection: Sy Rojas MD Creatinine [Mass/Vol] 2.1 mg/dL High 0.7-1.[address] [facility] Comment on above: Performed By: #### B MP #### [facility] [address] [place], [place] [address] Chief Of Safety And Protection: Sy Rojas MD GFR/1.73 sq M.predicted among non-blacks MDRD (S/P/Bld) [Vol rate/Area] 34 mL/min/{1.73_m2} Low >60 [facility] Comment on above: Result Comment: These results [...] secretion. Performed By: #### B MP #### [facility] [address] [place] [address] Chief Of Safety And Protection: Sy Rojas MD Glucose [Mass/Vol] 50 mg/dL Critically low 70-99 [facility] Comment on above: Performed By: #### B MP #### [facility] [address] [place] [address] Chief Of Safety And Protection: Sy Rojas MD Potassium [Moles/Vol] 4.2 mmol/L Normal 3.7-5.[address] [facility] Comment on above: Performed By: #### B MP #### [facility] [address] [place] [address] Chief Of Safety And Protection: Sy Rojas MD Sodium [Moles/Vol] 132 mmol/L Low 135-144 [facility] Comment on above: Performed By: #### B MP #### [facility] [address] [place] [address] Chief Of Safety And Protection: Sy Rojas MD Urea nitrogen [Mass/Vol] 53 mg/dL High 8-23 [facility] Comment on above: Performed By: #### B MP #### [facility] [address] [place] [address] Chief Of Safety And Protection: Sy Rojas MD CBC W Auto Differential pane l (Bld)on 03-20-2023 Basophils (Bld) [#/Vol] 0.07 10*3/uL Normal <0.11 [facility] [facility] Comment on above: Order Comment: Speci men Type: BLOOD SPECIMENOrdering Facility: [facility] Address: [address] [place] [address] Performed By: #### 5 7021-8, 46243-8 ####[facility] LABCLIA [id number] [facility] [id number] [address] [place] Basophils/100 WBC (Bld) 0.8 % Normal [facility] Comment on above: Order Comment: Speci men Type: BLOOD SPECIMENOrdering Facility: [facility] Address: [address] Performed By: #### 5 7021-8, 83566-6 ####[facility] LABCLIA [id number] [place] [address] [place] Differential cell count method Nom (Bld) Auto Normal [facility] Comment on above: Order Comment: Speci men Type: BLOOD SPECIMENOrdering Facility: [facility] Address: [address] Performed By: #### 5 7021-8, 74605-2 ####[facility] LABCLIA [id number] [place] [address] [place] Eosinophils (Bld) [#/Vol] 0.22 10*3/uL Normal <0.46 [facility] Comment on above: Order Comment: Speci men Type: BLOOD SPECIMENOrdering Facility: [facility] Address: [address] [place], [place] [address] Performed By: #### 5 7021-8, 52043-8 ####[facility] LABIA [id number] [address] [place] Eosinophils/100 WBC (Bld) 2.4 % Normal [facility] Comment on above: Order Comment: Speci men Type: BLOOD SPECIMENOrdering Facility: [facility] Address: [address] [place], [place] [address] Performed By: #### 5 7021-8, 72587-6 ####[facility] LABIA [id number] [place] [address] [place] Erythrocyte distribution width (RBC) [Ratio] 20.4 % High 11.5-15.0 [facility] Comment on above: Order Comment: Speci men Type: BLOOD SPECIMENOrdering Facility: [facility] Address: [address] Performed By: #### 5 7021-8, 11755-6 ####[facility] LABCLIA [id number] [place] [address] [place] Hematocrit (Bld) [Volume fraction] 38.8 % Low 39.0-51.0 [facility] Comment on above: Order Comment: Speci men Type: BLOOD SPECIMENOrdering Facility: [facility] Address: [address] Performed By: #### 5 7021-8, 71441-9 ####[facility] LABCLIA [id number] [place] [address] [place] Hemoglobin (Bld) [Mass/Vol] 11.7 g/dL Low 13.0-17.0 [facility] Comment on above: Order Comment: Speci men Type: BLOOD SPECIMENOrdering Facility: [facility] Address: [address] Performed By: #### 5 7021-8, 85738-3 ####[facility] LABIA [id number] [place] [address] [place] Immature granulocytes (Bld) [#/Vol] 0.03 10*3/uL Normal <0.10 [facility] Comment on above: Order Comment: Speci men Type: BLOOD SPECIMENOrdering Facility: [facility] Address: [address] Performed By: #### 5 7021-8, 88416-0 ####[facility] LABCLIA [id number] [place] [address] [place] Immature granulocytes/100 WBC (Bld) 0.3 % Normal [facility] Comment on above: Order Comment: Speci men Type: BLOOD SPECIMENOrdering Facility: [facility] Address: [address] [place] [address] Performed By: #### 5 7021-8, 77488-5 ####[facility] LABCLIA [id number] [place] [address] [place] Lymphocytes (Bld) [#/Vol] 0.69 10*3/uL Low 1.00-4.00 [facility] Comment on above: Order Comment: Speci men Type: BLOOD SPECIMENOrdering Facility: [facility] Address: [address] [place] [address] Performed By: #### 5 7021-8, 80742-1 ####[facility] LABCLIA [id number] [place] [address] [place] Lymphocytes/100 WBC (Bld) 7.5 % Normal [facility] Comment on above: Order Comment: Speci men Type: BLOOD SPECIMENOrdering Facility: [facility] Address: [address] [place] [address] Performed By: #### 5 7021-8, 73698-7 ####[facility] LABCLIA [id number] [place] [address] [place] MCH (RBC) [Entitic mass] 24.8 pg Low 26.0-34.0 [facility] Comment on above: Order Comment: Speci men Type: BLOOD SPECIMENOrdering Facility: [facility] Address: [address] [place] [address] Performed By: #### 5 7021-8, 05310-1 ####[facility] LABCLIA [id number] [place] [address] [place] MCHC (RBC) [Mass/Vol] 30.2 g/dL Low 30.5-36.0 [facility] Comment on above: Order Comment: Speci men Type: BLOOD SPECIMENOrdering Facility: [facility] Address: [address] [place], [place] [address] Performed By: #### 5 7021-8, 51008-3 ####[facility] LABCLIA [id number] [place] [address] [place] MCV (RBC) [Entitic vol] 82.4 fL Normal 80.0-100.0 [facility] Comment on above: Order Comment: Speci men Type: BLOOD SPECIMENOrdering Facility: [facility] Address: [address] [place] [address] Performed By: #### 5 7021-8, 69527-8 ####[facility] LABCLIA [id number] [place] [address] [place] Monocytes (Bld) [#/Vol] 0.67 10*3/uL Normal <0.87 [facility] Comment on above: Order Comment: Speci men Type: BLOOD SPECIMENOrdering Facility: [facility] Address: [address] [place], [place] [address] Performed By: #### 5 7021-8, 91933-2 ####[facility] LABCLIA [id number] [place] [address] [place] Monocytes/100 WBC (Bld) 7.3 % Normal [facility] Comment on above: Order Comment: Speci men Type: BLOOD SPECIMENOrdering Facility: [facility] Address: [address] [place], [place] [address] Performed By: #### 5 7021-8, 46508-3 ####[facility] LABCLIA [id number] [place] [address] [place] Neutrophils (Bld) [#/Vol] 7.47 10*3/uL Normal 1.45-7.50 [facility] Comment on above: Order Comment: Speci men Type: BLOOD SPECIMENOrdering Facility: [facility] Address: [address] [place], [place] [address] Performed By: #### 5 7021-8, 31398-3 ####[facility] LABCLIA [id number] [place] [address] [place] Neutrophils/100 WBC (Bld) 81.7 % Normal [facility] Comment on above: Order Comment: Speci men Type: BLOOD SPECIMENOrdering Facility: [facility] Address: [address] [place] [address] Performed By: #### 5 7021-8, 78799-4 ####[facility] LABIA [id number] [place] [address] [place] Nucleated RBC (Bld) [#/Vol] 0.02 10*3/uL High <0.01 [facility] Comment on above: Order Comment: Speci men Type: BLOOD SPECIMENOrdering Facility: [facility] Address: [address] Performed By: #### 5 7021-8, 98668-4 ####[facility] LABIA [id number] [place] [address] [place] Nucleated RBC/100 WBC (Bld) [Ratio] 0.2 /100 WBC Normal [facility] Comment on above: Order Comment: Speci men Type: BLOOD SPECIMENOrdering Facility: [facility] Address: [address] Performed By: #### 5 7021-8, 03212-0 ####[facility] LABIA [id number] [place] [address] [place] Platelet mean volume (Bld) [Entitic vol] 9.5 fL Normal 9.0-12.7 [facility] Comment on above: Order Comment: Speci men Type: BLOOD SPECIMENOrdering Facility: [facility] Address: [address] [place] [address] Performed By: #### 5 7021-8, 54533-9 ####[facility] LABIA [id number] [place] [address] [place] Platelets (Bld) [#/Vol] 254 10*3/uL Normal 150-400 [facility] Comment on above: Order Comment: Speci men Type: BLOOD SPECIMENOrdering Facility: [facility] Address: [address] [place] [address] Performed By: #### 5 7021-8, 22063-8 ####[facility] LABCLIA [id number] [address] [place] RBC (Bld) [#/Vol] 4.71 10*6/uL Normal 4.20-6.00 [facility] Comment on above: Order Comment: Speci men Type: BLOOD SPECIMENOrdering Facility: [facility] Address: [address] [place] [address] Performed By: #### 5 7021-8, 91064-1 ####[facility] LABIA [id number] [address] [place] WBC (Bld) [#/Vol] 9.15 10*3/uL Normal 3.70-11.00 [facility] Comment on above: Order Comment: Speci men Type: BLOOD SPECIMENOrdering Facility: [facility] Address: [address] [place] [address] Performed By: #### 5 7021-8, 90747-9 ####[facility] LABIA [id number] [place] [address] [place] [facility] Comprehensive metabolic 2000 panelon 03-20-2023 Albumin [Mass/Vol] 3.9 g/dL Normal 3.9-4.9 [facility] Comment on above: Order Comment: Speci men Type: BLOOD SPECIMENOrdering Facility: [facility] Address: [address] [place] [address] Performed By: #### 3 3762-6, [id number], 23068-0, 60759-2 ####[facility] LABIA [id number] [address] OF [facility] ALP [Catalytic activity/Vol] 169 U/L High 38-113 [facility] Comment on above: Order Comment: Speci men Type: BLOOD SPECIMENOrdering Facility: [facility] Address: [address] [place], [place] [address] Performed By: #### 3 3762-6, [id number], 54564-9, 65330-8 ####[facility] LABCLIA [id number] [place] [address] [place] ALT [Catalytic activity/Vol] 19 U/L Normal 10-54 [facility] Comment on above: Order Comment: Speci men Type: BLOOD SPECIMENOrdering Facility: [facility] Address: [address] Performed By: #### 3 3762-6, [id number], 90197-0, 57116-1 ####[facility] LABCLIA [id number] [place] [address] [place] Anion gap [Moles/Vol] 11 mmol/L Normal 9-18 [facility] Comment on above: Order Comment: Speci men Type: BLOOD SPECIMENOrdering Facility: [facility] Address: [address] [place] [address] Performed By: #### 3 3762-6, [id number], 85572-4, 64338-1 ####[facility] LABCLIA [id number] [place] [address] [place] AST [Catalytic activity/Vol] 21 U/L Normal 14-40 [facility] Comment on above: Order Comment: Speci men Type: BLOOD SPECIMENOrdering Facility: [facility] Address: [address] [place], [place] [address] Performed By: #### 3 3762-6, [id number], 77964-7, 54610-6 ####[facility] LABCLIA [id number] [place] [address] [place] Bilirubin [Mass/Vol] 2.2 mg/dL High 0.2-1.3 [facility] Comment on above: Order Comment: Speci men Type: BLOOD SPECIMENOrdering Facility: [facility] Address: [address] Performed By: #### 3 3762-6, [id number], 76037-7, 26083-7 ####[facility] LABCLIA [id number] [place] [address] [place] Calcium [Mass/Vol] 9.6 mg/dL Normal 8.5-10.2 [facility] Comment on above: Order Comment: Speci men Type: BLOOD SPECIMENOrdering Facility: [facility] Address: [address] [place] [address] Performed By: #### 3 3762-6, [id number], 78235-8, 81690-8 ####[facility] LABIA [id number] [place] [address] [place] Chloride [Moles/Vol] 96 mmol/L Low 97-105 [facility] Comment on above: Order Comment: Speci men Type: BLOOD SPECIMENOrdering Facility: [facility] Address: [address] [place] [address] Performed By: #### 3 3762-6, [id number], 74250-7, 30216-9 ####[facility] LABIA [id number] [place] [address] [place] CO2 [Moles/Vol] 26 mmol/L Normal 22-30 [facility] Comment on above: Order Comment: Speci men Type: BLOOD SPECIMENOrdering Facility: [facility] Address: [address] [place], [place] [address] Performed By: #### 3 3762-6, [id number], 73236-9, 42753-0 ####[facility] LABIA [id number] [place] [address] [place] Creatinine [Mass/Vol] 2.14 mg/dL High 0.73-1.22 [facility] Comment on above: Order Comment: Speci men Type: BLOOD SPECIMENOrdering Facility: [facility] Address: [address] [place], [place] [address] Performed By: #### 3 3762-6, [id number], 32643-2, 38103-9 ####[facility] LABCLIA [id number] [place] [address] [place] ESTIMATED GLOMERULAR FILTRATION RATE 34 mL/min/1.73m??? Low >=60 [facility] Comment on above: Order Comment: Joseline clemons Type: BLOOD SPECIMENOrdering Facility: [facility] Address: [address] [place] [address] Result Comment: Syl mated Glomerular Filtration Rate [...] actual GFR. Performed By: #### 3 3762-6, [id number], 29278-6, 61577-2 ####[facility] LABCLIA [id number] [place] [address] [place] Glucose [Mass/Vol] 90 mg/dL Normal 74-99 [facility] Comment on above: Order Comment: Joseline clemons Type: BLOOD SPECIMENOrdering Facility: [facility] Address: [address] [place] [address] Result Comment: The [place] [employer] (ADA) provides guidance for cutoff [...] Standards of Medical Care in Diabetes 2016, [place] [employer]. Diabetes Care. 2016.39(Suppl 1). Performed By: #### 3 3762-6, [id number], 81782-7, 54459-1 ####[facility] LABCLIA [id number] [place] [id number] [place] Potassium [Moles/Vol] 4.9 mmol/L Normal 3.7-5.1 [facility] Comment on above: Order Comment: Speci men Type: BLOOD SPECIMENOrdering Facility: [facility] Address: [address] [place], [place] [address] Performed By: #### 3 3762-6, [id number], 57534-8, 90234-3 ####[facility] LABCLIA [id number] [place] [address] [place] Protein [Mass/Vol] 6.6 g/dL Normal 6.3-8.0 [facility] Comment on above: Order Comment: Speci men Type: BLOOD SPECIMENOrdering Facility: [facility] Address: [address] [place], [place] [address] Performed By: #### 3 3762-6, [id number], , 60516-8 ####[facility] LABCLIA [id number] [place] [address] [place] Sodium [Moles/Vol] 133 mmol/L Low 136-144 [facility] Comment on above: Order Comment: Speci men Type: BLOOD SPECIMENOrdering Facility: [facility] Address: [address] [place], [place] [address] Performed By: #### 3 3762-6, [id number], , 77167-5 ####[facility] LABCLIA [id number] [place] [address] [place] Urea nitrogen [Mass/Vol] 53 mg/dL High 9-24 [facility] Comment on above: Order Comment: Speci men Type: BLOOD SPECIMENOrdering Facility: [facility] Address: [address] [place] [address] Performed By: #### 3 3762-6, [id number], 88024-6, 04523-8 ####[facility] LABCLIA [id number] [address] [address] [facility] ED NOTEon 03-20-2023 ED NOTE Normal [facility] ED NOTE HNO ID: [id number] Author: Miko Ivy Medic Service: Emergency Medicine Author Type: [employer] Desk Lead Type: ED Notes Filed: 03/20/2023 12:55 PM Note Text: Labs were drawn and sent; 1 purple, 1 green Normal [facility] ED PROV NOTEon 03-20-2023 ED PROV NOTE Normal [facility] HIGH SENSITIVITY TROPONIN T (INITIAL)on 03-20-2023 HIGH SENSITIVITY REINIER 58 ng/L High <12 [facility] Comment on above: Order Comment: Joseline clemons Type: BLOOD SPECIMENOrdering Facility: [facility] Address: [address] [place] [address] Result Comment: When assessing risk for acute [...] day MACE. Performed By: #### 3 3762-6, [id number], 99292-1, 20550-9 ####[facility] LABCLIA [id number] [address] [address] [facility] HIGH SENSITIVITY TROPONIN T (SECOND)on 03-20-2023 HIGH SENSITIVITY REINIER 54 ng/L High <12 [facility] Comment on above: Order Comment: Joseline clemons Type: BLOOD SPECIMENOrdering Facility: [facility] Address: [address] [place] [address] Result Comment: When assessing risk for acute [...] 30 day MACE. Performed By: #### L [id number] ####[facility] LABCLIA [id number] [place] [address] [place] HIGH SENSITIVITY TROPONIN T (THIRD) 3 HRS AFTER INITIALon 03-20-2023 HIGH SENSITIVITY REINIER 53 ng/L High <12 [facility] Comment on above: Order Comment: Speci men Type: BLOOD SPECIMENOrdering Facility: [facility] Address: [address] [place] [address] Result Comment: When assessing risk for acute [...] for 30 day MACE. Performed By: #### 4 542-7, [id number], 62084-7 ####[facility] LABCLIA [id number] [place] [address] [place] HISTORY PHYSICALon 3 HISTORY PHYSICAL Normal [facility] Haptoglob SerPl-mCncon 03-20 Haptoglobin [Mass/Vol] 244 mg/dL High 31-238 [facility] Comment on above: Order Comment: Reneei men Type: BLOOD SPECIMENOrdering Facility: [facility] Address: [address] [place] [address] Performed By: #### 4 542-7, [id number], 28368-5 ####[facility] LABCLIA [id number] [place] [address] [place] Magnesium SerPl-mCncon 03-20 Magnesium [Mass/Vol] 2.0 mg/dL Normal 1.7-2.3 [facility] Comment on above: Order Comment: Speci men Type: BLOOD SPECIMENOrdering Facility: [facility] Address: [address] [place] [address], [place] [address] Performed By: #### 3 3762-6, [id number], , 98218-5 ####[facility] LABCLIA [id number] [place] [address] [place] NT[facility] Natriuretic peptide.B prohormone N-Terminal [Mass/Vol] 8423 pg/mL High <125 [facility] Comment on above: Order Comment: Speci men Type: BLOOD SPECIMENOrdering Facility: [facility] Address: [address] Performed By: #### 3 3762-6, [id number], , ####[facility] LABCLIA [id number] [place] [address] [place] NURSING PROGon 03-20-2023 NURSING PROG Normal [facility] bilirubin panel [Ma ss/Vol]on 03-20-2023 Bilirubin [Mass/Vol] 2.2 mg/dL High 0.2-1.3 [facility] Comment on above: Order Comment: Speci men Type: BLOOD SPECIMENOrdering Facility: [facility] Address: [address] Performed By: #### 4 542-7, [id number], 28941-2 ####[facility] LABCLIA [id number] [place] [address] [place] Bilirubin.conjugated [Mass/Vol] 0.5 mg/dL High <0.2 [facility] Comment on above: Order Comment: Speci men Type: BLOOD SPECIMENOrdering Facility: [facility] Address: [address] Performed By: #### 4 542-7, [id number], 48234-9 ####[facility] LABCLIA [id number] [id number] [address] [place] Bilirubin.indirect [Mass/Vol] 1.7 mg/dL High <1.4 [facility] Comment on above: Order Comment: Joseline clemons Type: BLOOD SPECIMENOrdering Facility: [facility] Address: [address] [place] [address] Performed By: #### 4 542-7, [id number], 71227-9 ####[facility] LABCLIA [id number] [address] [place] PT panel Coag (PPP)on 2022 INR Coag (PPP) [Relative time] 2.0 {INR} High 0.9-1.3 [facility] Comment on above: Order Comment: Joseline clemons Type: BLOOD SPECIMENOrdering Facility: [facility] Address: [address] [place] [address] Result Comment: Baylee min K Antagonist (VKA) Therapeutic Range: INR 2 to 3 (Target INR of 2.5)Note: For patients treated with VKA drugs, such as warfarin, the [place] [employer] 2012 Guideline recommends [...] 70: 252-289 Performed By: #### 3 4528-0 ####[facility] LABCLIA [id number] [address] [place] PT Coag (PPP) [Time] 19.8 s High 9.7-13.0 [facility] Comment on above: Order Comment: Speci men Type: BLOOD SPECIMENOrdering Facility: [facility] Address: [address] [place] [place] [id number] Performed By: #### 3 4528-0 ####[facility] LABIA [id number] [place] [address] [place] Retics #on 03-20-2023 Reticulocytes (Bld) [#/Vol] 0.69387 10*3/uL Normal 0.018-0.100 [facility] Comment on above: Order Comment: Speci men Type: BLOOD SPECIMENOrdering Facility: [facility] Address: [address] [place] [address] Performed By: #### 5 7021-8, 05057-8 ####[facility] [id number] [address] [place] Reticulocytes (Bld) [#/Vol]o n 03-20-2023 Reticulocytes/100 RBC (Bld) 1.9 % Normal 0.4-2.0 [facility] Comment on above: Order Comment: Speci men Type: BLOOD SPECIMENOrdering Facility: [facility] Address: [address] [place] [address] Performed By: #### 5 7021-8, 66990-8 ####[facility] [id number] [place] [address] [place] US ABD RIGHT UPPER QUADRANTo n 03-20-2023 US ABD RIGHT UPPER QUADRANT Normal [facility] US ABD SPLEEN -NBon 03-20-20 US ABD SPLEEN -NB Normal [facility] XR CHEST 2V FRONTAL/LATon XR CHEST 2V FRONTAL/LAT Normal [facility] Basic Metabolic Panelon 03-07 Anion gap [Moles/Vol] 11.0 mmol/L Normal 6.0-15.0 [facility] Comment on above: Performed By: #### B MP #### [facility] [address] Calcium [Mass/Vol] 9.5 mg/dL Normal 8.6-10.3 [facility] Comment on above: Performed By: #### B MP #### [facility] [address] Chloride [Moles/Vol] 102 mmol/L Normal 98-107 [facility] Comment on above: Performed By: #### B MP #### [facility] [address] CO2 [Moles/Vol] 30.2 mmol/L Normal 21.0-31.0 [facility] Comment on above: Performed By: #### B MP #### [facility] [address] Creatinine [Mass/Vol] 2.37 mg/dL High 0.70-1.30 [facility] Comment on above: Performed By: #### B MP #### [place] [address] [place] Creatinine Clr Calc Pharmacy 39.[address] [facility] Comment on above: Result Comment: PERF ORMED BY: [place] [address] PATHOLOGIST [employer]PER[employer] DHIRAJ CARLOS M.D. Performed By: #### B MP #### [address] GFR/1.73 sq M.predicted MDRD (S/P/Bld) [Vol rate/Area] 29.656 mL/min/{1.73_m2} Normal [facility] Comment on above: Performed By: #### B MP #### [address] Glucose [Mass/Vol] 44 mg/dL Off scale low 70-100 [facility] Comment on above: Result Comment: Crit ical Result Called to and read back by: HERNAN MEYERS at: 03/18/2023 07:15:01 by:[id number] Random Glucose Reference Range is dependent on time and content of last meal. Glucose of more than 200 mg/dL in a nonstressed, ambulatory subject supports the diagnosis of Diabetes Mellitus. ADA recommended reference range Performed By: #### B MP #### [facility] [address] [place] [address] [place] Potassium [Moles/Vol] 4.2 mmol/L Normal 3.5-5.1 [facility] Comment on above: Performed By: #### B MP #### [facility] [address] [place] [address] [place] Sodium [Moles/Vol] 139 mmol/L Normal 136-145 [facility] Comment on above: Performed By: #### B MP #### [facility] [address] Urea nitrogen [Mass/Vol] 54 mg/dL High 7-[address] [facility] Comment on above: Performed By: #### B MP #### [facility] [address] Glucose Poct Glucometerson 0 03-18-2023 Glucose [Mass/Vol] 220 mg/dL Normal [facility] Comment on above: Result Comment: [facility] Glucose Reference Range is dependent on time and content of last meal. Glucose of more than 200 mg/dL in a nonstressed, ambulatory subject supports the diagnosis of Diabetes Mellitus. PERFORMED BY: [place] [address] PATHOLOGIST [employer] SUPERVISOR DHIRAJ CARLOS M.D. Performed By: #### G LULS #### Point of Care testing , Glucose [Mass/Vol] 146 mg/dL Normal [facility] Comment on above: Result Comment: [facility] Glucose Reference Range is dependent on time and content of last meal. Glucose of more than 200 mg/dL in a nonstressed, ambulatory subject supports the diagnosis of Diabetes Mellitus. PERFORMED BY: [place] [address] PATHOLOGIST [employer] SUPERVISOR DHIRAJ CARLOS M.D. Performed By: #### G LULS #### Point of Care testing , Glucose [Mass/Vol] 125 mg/dL Normal [facility] Comment on above: Result Comment: [facility] Glucose Reference Range is dependent on time and content of last meal. Glucose of more than 200 mg/dL in a nonstressed, ambulatory subject supports the diagnosis of Diabetes Mellitus. PERFORMED BY: [place] [address] [place] [address] PATHOLOGIST [employer] SUPERVISOR DHIRAJ CARLOS M.D. Performed By: #### G LULS #### Point of Care testing , Commemt1 [facility] Comment on above: Result Comment: Glu2 : WILL NOTIFY DR/RN PERFORMED BY: [facility] [address] [place] [address] PATHOLOGIST [employer] SUPERVISOR DHIRAJ CARLOS M.D. Performed By: #### G LULS #### Point of Care testing , Glucose [Mass/Vol] 51 mg/dL Off scale low [facility] Comment on above: Result Comment: [facility] Glucose Reference Range is dependent on time and content of last meal. Glucose of more than 200 mg/dL in a nonstressed, ambulatory subject supports the diagnosis of Diabetes Mellitus. Performed By: #### G LULS #### Point of Care testing , Prothrombin Time INRon 03-18 INR Coag (PPP) [Relative time] 2.3 {INR} [facility] Comment on above: Result Comment: INR Therapeutic [...] heart valves: 3 - 4.5 PERFORMED BY: [facility] [address] [place] [address] PATHOLOGIST [employer] SUPERVISOR DHIRAJ CARLOS M.D. Performed By: #### G LULS #### Point of Care testing , PT Coag (PPP) [Time] 26.6 s High 9.0-12.9 [facility] Comment on above: Performed By: #### G LULS #### Point of Care testing , Basic Metabolic Panelon 08- Anion gap [Moles/Vol] 12.3 mmol/L Normal 6.0-15.0 [facility] Comment on above: Performed By: #### G LULS #### Point of Care testing , Calcium [Mass/Vol] 9.1 mg/dL Normal 8.6-10.3 [facility] Comment on above: Performed By: #### G LULS #### Point of Care testing , Chloride [Moles/Vol] 101 mmol/L Normal 98-107 [facility] Comment on above: Performed By: #### G LULS #### Point of Care testing , CO2 [Moles/Vol] 27.4 mmol/L Normal 21.0-31.0 [facility] Comment on above: Performed By: #### G LULS #### Point of Care testing , Creatinine [Mass/Vol] 2.49 mg/dL High 0.70-1.30 [facility] Comment on above: Performed By: #### G LULS #### Point of Care testing , Creatinine Clr Calc Pharmacy 38.36 [facility] Comment on above: Result Comment: PERF ORMED BY: [facility] [address] [place] [address] PATHOLOGIST [employer] SUPERVISOR DHIRAJ CARLOS M.D. Performed By: #### G LULS #### Point of Care testing , GFR/1.73 sq M.predicted MDRD (S/P/Bld) [Vol rate/Area] 27.949 mL/min/{1.73_m2} [facility] Comment on above: Performed By: #### G LULS #### Point of Care testing , Glucose [Mass/Vol] 74 mg/dL Normal 70-100 [facility] Comment on above: Result Comment: [place] Glucose Reference Range is dependent on time and content of last meal. Glucose of more than 200 mg/dL in a nonstressed, ambulatory subject supports the diagnosis of Diabetes Mellitus. ADA recommended reference range Performed By: #### G LULS #### Point of Care testing , Potassium [Moles/Vol] 4.7 mmol/L Normal 3.5-5.1 [facility] Comment on above: Performed By: #### G LULS #### Point of Care testing , Sodium [Moles/Vol] 136 mmol/L Normal 136-145 [facility] Comment on above: Performed By: #### G LULS #### Point of Care testing , Urea nitrogen [Mass/Vol] 55 mg/dL High 7-[address] [facility] Comment on above: Performed By: #### G LULS #### Point of Care testing , Glucose Poct Glucometerson 0 03-17-2023 Glucose [Mass/Vol] 208 mg/dL Normal [facility] Comment on above: Result Comment: [facility] Glucose Reference Range is dependent on time and content of last meal. Glucose of more than 200 mg/dL in a nonstressed, ambulatory subject supports the diagnosis of Diabetes Mellitus. PERFORMED BY: [place] [address] PATHOLOGIST [employer] SUPERVISOR DHIRAJ CARLOS M.D. Performed By: #### G LULS #### Point of Care testing , Commemt1 Glu2: Cleaned Meter [facility] Comment on above: Result Comment: PERF ORMED BY: [place] [address] PATHOLOGIST [employer] SUPERVISOR DHIRAJ CARLOS M.D. Performed By: #### G LULS #### Point of Care testing , Glucose [Mass/Vol] 138 mg/dL Normal [facility] Comment on above: Result Comment: [facility] Glucose Reference Range is dependent on time and content of last meal. Glucose of more than 200 mg/dL in a nonstressed, ambulatory subject supports the diagnosis of Diabetes Mellitus. Performed By: #### G LULS #### Point of Care testing , Commemt1 Glu2: Cleaned Meter [facility] Comment on above: Result Comment: PERF ORMED BY: [address] [place] [address] PATHOLOGIST [employer] SUPERVISOR DHIRAJ CARLOS M.D. Performed By: #### G LULS #### Point of Care testing , Glucose [Mass/Vol] 266 mg/dL Normal [facility] Comment on above: Result Comment: [place] om Glucose Reference Range is dependent on time and content of last meal. Glucose of more than 200 mg/dL in a nonstressed, ambulatory subject supports the diagnosis of Diabetes Mellitus. Performed By: #### G BROCK #### Point of Care testing , Glucose [Mass/Vol] 84 mg/dL Normal [facility] Comment on above: Result Comment: [place] om Glucose Reference Range is dependent on time and content of last meal. Glucose of more than 200 mg/dL in a nonstressed, ambulatory subject supports the diagnosis of Diabetes Mellitus. PERFORMED BY: [place] [address] PATHOLOGIST [employer] SUPERVISOR DHIRAJ CARLOS M.D. Performed By: #### B MP #### [place] [id number] [facility] Prothrombin Time INRon 03-17 INR Coag (PPP) [Relative time] 3.4 {INR} Normal [facility] Comment on above: Result Comment: INR Therapeutic [...] heart valves: 3 - 4.5 PERFORMED BY: [place] [address] PATHOLOGIST [employer] SUPERVISOR DHIRAJ CARLOS M.D. Performed By: #### B MP #### [place] [id number] [facility] PT Coag (PPP) [Time] 38.9 s High 9.0-12.9 [facility] Comment on above: Performed By: #### B MP #### [address] [address] [facility] Basic Metabolic Panelon 03-07 Anion gap [Moles/Vol] 14.4 mmol/L Normal 6.0-15.0 [facility] Comment on above: Performed By: #### G LULS #### Point of Care testing , Calcium [Mass/Vol] 9.2 mg/dL Normal 8.6-10.3 [facility] Comment on above: Performed By: #### G LULS #### Point of Care testing , Chloride [Moles/Vol] 101 mmol/L Normal 98-107 [facility] Comment on above: Performed By: #### G LULS #### Point of Care testing , CO2 [Moles/Vol] 24.9 mmol/L Normal 21.0-31.0 [facility] Comment on above: Performed By: #### G LULS #### Point of Care testing , Creatinine [Mass/Vol] 2.50 mg/dL High 0.70-1.30 [facility] Comment on above: Performed By: #### G LULS #### Point of Care testing , Creatinine Clr Calc Pharmacy 38.43 [facility] Comment on above: Result Comment: PERF ORMED BY: [facility] [address] [facility] [place] [address] PATHOLOGIST [employer] SUPERVISOR DHIRAJ CARLOS M.D. Performed By: #### G LULS #### Point of Care testing , GFR/1.73 sq M.predicted MDRD (S/P/Bld) [Vol rate/Area] 27.815 mL/min/{1.73_m2} [facility] Comment on above: Performed By: #### G LULS #### Point of Care testing , Glucose [Mass/Vol] 67 mg/dL Low 70-100 [facility] Comment on above: Result Comment: [place] Glucose Reference Range is dependent on time and content of last meal. Glucose of more than 200 mg/dL in a nonstressed, ambulatory subject supports the diagnosis of Diabetes Mellitus. ADA recommended reference range Performed By: #### G LULS #### Point of Care testing , Potassium [Moles/Vol] 5.3 mmol/L High 3.5-5.1 [facility] Comment on above: Performed By: #### G BROCK #### Point of Care testing , Sodium [Moles/Vol] 135 mmol/L Low 136-145 [facility] Comment on above: Performed By: #### G JAMEELLS #### Point of Care testing , Urea nitrogen [Mass/Vol] 55 mg/dL High 7-[address] [facility] Comment on above: Performed By: #### G JAMEELLS #### Point of Care testing , Complete Blood Count Auto Di ffon 03-16-2023 Basophils (Bld) [#/Vol] 0.1 10*3/uL Normal 0.0-0.[address] [facility] Comment on above: Result Comment: PERF ORMED BY: [facility] [address] [place] [address] PATHOLOGIST [employer] SUPERVISOR DHIRAJ CARLOS M.D. Performed By: #### G JAMEELLS #### Point of Care testing , Basophils/100 WBC (Bld) 0.7 % Normal . [facility] Comment on above: Performed By: #### G JAMEELLS #### Point of Care testing , Eosinophils (Bld) [#/Vol] 0.1 10*3/uL Normal 0.0-0.[address] [facility] Comment on above: Performed By: #### G JAMEELLS #### Point of Care testing , Eosinophils/100 WBC (Bld) 1.3 % Normal . [facility] Comment on above: Performed By: #### G JAMEELLS #### Point of Care testing , Erythrocyte distribution width (RBC) [Ratio] 21.2 % High 12.0-14.[address] [facility] Comment on above: Performed By: #### G JAMEELLS #### Point of Care testing , Hematocrit (Bld) [Volume fraction] 35.8 % Low 38.8-50.[address] [facility] Comment on above: Performed By: #### G JAMEELLS #### Point of Care testing , Hemoglobin (Bld) [Mass/Vol] 11.3 g/dL Low 13.0-17.[address] [facility] Comment on above: Performed By: #### G LULS #### Point of Care testing , Lymphocytes (Bld) [#/Vol] 0.6 10*3/uL Low 1.00-4.[address] [facility] Comment on above: Performed By: #### Armin JORGENSENLS #### Point of Care testing , Lymphocytes/100 WBC (Bld) 7.4 % Normal . [facility] Comment on above: Performed By: #### Armin JORGENSENLS #### Point of Care testing , MCH (RBC) [Entitic mass] 25.1 pg Low 27.5-35.[address] [facility] Comment on above: Performed By: #### G JAMEELLS #### Point of Care testing , MCV (RBC) [Entitic vol] 79.7 fL Low 83.5-[address] [facility] Comment on above: Performed By: #### Armin JORGENSENLS #### Point of Care testing , Mean Corpuscular HGB Conc 31.5 g/dL Low 32.5-35.[address] [facility] Comment on above: Performed By: #### Armin JORGENSENLS #### Point of Care testing , Monocytes (Bld) [#/Vol] 0.7 10*3/uL Normal 0.0-0.[address] [facility] Comment on above: Performed By: #### Armin JORGENSENLS #### Point of Care testing , Monocytes/100 WBC (Bld) 7.8 % Normal . [facility] Comment on above: Performed By: #### Armin GUTIÉRREZ #### Point of Care testing , Neutrophils (Bld) [#/Vol] 7.2 10*3/uL Normal 1.8-7.[address] [facility] Comment on above: Performed By: #### Armin JORGENSENLS #### Point of Care testing , Neutrophils/100 WBC (Bld) 82.8 % Normal . [facility] Comment on above: Performed By: #### G JAMEELLS #### Point of Care testing , NRBC% 0.3 /100{WBC} Normal 0-0.[address] [facility] Comment on above: Performed By: #### Armin JORGENSENLS #### Point of Care testing , Platelet mean volume (Bld) [Entitic vol] 7.6 fL Normal 6.6-10.[address] [facility] Comment on above: Performed By: #### G LULS #### Point of Care testing , Platelets (Bld) [#/Vol] 272 10*3/uL Normal 150-[address] [facility] Comment on above: Performed By: #### G LULS #### Point of Care testing , RBC (Bld) [#/Vol] 4.49 10*6/uL Normal 3.90-5.60 [facility] Comment on above: Performed By: #### G LULS #### Point of Care testing , WBC (Bld) [#/Vol] 8.7 10*3/uL Normal 4.1-10.5 [facility] Comment on above: Performed By: #### G LULS #### Point of Care testing , Dipstick and Microscopicon 0 03-16-2023 Bacteria,Urine None Seen Normal None Seen [facility] Comment on above: Order Comment: Name Collection Type:: Clean-Voided Midstream Performed By: #### G LULS #### Point of Care testing , Hyaline Casts,Urine 0-8 Normal 0-8 [facility] Comment on above: Order Comment: Name Collection Type:: Clean-Voided Midstream Result Comment: PERF ORMED BY: [facility] [address] [place] [address] PATHOLOGIST [employer] SUPERVISOR DHIRAJ CARLOS M.D. Performed By: #### G LULS #### Point of Care testing , RBC LM.HPF (Urine sed) [#/Area] 0 /[HPF] Normal 0-[address] [facility] Comment on above: Order Comment: Name Collection Type:: Clean-Voided Midstream Performed By: #### G LULS #### Point of Care testing , Squamous Epithelial Cell,Urine None Seen Normal 0-[address] [facility] Comment on above: Order Comment: Name Collection Type:: Clean-Voided Midstream Performed By: #### G LULS #### Point of Care testing , WBC LM.HPF (Urine sed) [#/Area] 0 /[HPF] Normal 0-[address] [facility] Comment on above: Order Comment: Name Collection Type:: Clean-Voided Midstream Performed By: #### G LULS #### Point of Care testing , [facility] echo transthoracicon [facility] echo transthoracic [facility] [place] [address] [place] [address] Echocardiogram Signed Patient: Barak Foster MR#: [id number] : 1955 Acct:[id number] Age/Sex: 67 / M ADM Date: 03/15/23 Loc: Room: [address] [place] [address] Type: ADM IN Attending Dr: Meena Falcon MD Ordering Provider: Meena Falcon MD Date of Service: 03/15/2304/29/1446 [facility] echo transthoracic: CHF Copies to: MD [...] Signed By: Shady Aviles MD 03/16/23 1852 [facility] Glucose Poct Glucometerson 0 03-16-2023 Glucose [Mass/Vol] 147 mg/dL [facility] Comment on above: Result Comment: [place] Glucose Reference Range is dependent on time and content of last meal. Glucose of more than 200 mg/dL in a nonstressed, ambulatory subject supports the diagnosis of Diabetes Mellitus. PERFORMED BY: [place] [phone] PATHOLOGIST [employer] SUPERVISOR DHIRAJ CARLOS M.D. Performed By: #### B MP #### [address] Commemt1 Glu2: Cleaned Meter [facility] Comment on above: Result Comment: PERF ORMED BY: [place] [phone] PATHOLOGIST [employer] SUPERVISOR DHIRAJ CARLOS M.D. Performed By: #### G LULS #### Point of Care testing , Glucose [Mass/Vol] 115 mg/dL Normal [facility] Comment on above: Result Comment: [place] om Glucose Reference Range is dependent on time and content of last meal. Glucose of more than 200 mg/dL in a nonstressed, ambulatory subject supports the diagnosis of Diabetes Mellitus. Performed By: #### G LULS #### Point of Care testing , Glucose [Mass/Vol] 123 mg/dL Normal [facility] Comment on above: Result Comment: [place] om Glucose Reference Range is dependent on time and content of last meal. Glucose of more than 200 mg/dL in a nonstressed, ambulatory subject supports the diagnosis of Diabetes Mellitus. PERFORMED BY: [address] [place] [address] PATHOLOGIST [employer] SUPERVISOR DHIRAJ CARLOS M.D. Performed By: #### G LULS #### Point of Care testing , Glucose [Mass/Vol] 81 mg/dL Normal [facility] Comment on above: Result Comment: [facility] Glucose Reference Range is dependent on time and content of last meal. Glucose of more than 200 mg/dL in a nonstressed, ambulatory subject supports the diagnosis of Diabetes Mellitus. PERFORMED BY: [address] [place] [address] PATHOLOGIST [employer] SUPERVISOR DHIRAJ CARLOS M.D. Performed By: #### G LULS #### Point of Care testing , Glucose [Mass/Vol] 76 mg/dL Normal [facility] Comment on above: Result Comment: [facility] Glucose Reference Range is dependent on time and content of last meal. Glucose of more than 200 mg/dL in a nonstressed, ambulatory subject supports the diagnosis of Diabetes Mellitus. PERFORMED BY: [address] [place] [address] PATHOLOGIST [employer] SUPERVISOR DHIRAJ CARLOS M.D. Performed By: #### G LULS #### Point of Care testing , Commemt1 [facility] Comment on above: Result Comment: Glu2 : WILL NOTIFY DR/RN PERFORMED BY: [address] [place] [address] PATHOLOGIST [employer] SUPERVISOR DHIRAJ CARLOS M.D. Performed By: #### G LULS #### Point of Care testing , Glucose [Mass/Vol] 51 mg/dL Off scale low [facility] Comment on above: Result Comment: [facility] Glucose Reference Range is dependent on time and content of last meal. Glucose of more than 200 mg/dL in a nonstressed, ambulatory subject supports the diagnosis of Diabetes Mellitus. Performed By: #### G LULS #### Point of Care testing , Magnesiumon 03-16-2023 Magnesium [Mass/Vol] 1.9 mg/dL Normal 1.9-2.7 [facility] Comment on above: Result Comment: PERF ORMED BY: [address] [place] [address] PATHOLOGIST [employer] SUPERVISOR DHIRAJ CARLOS M.D. Performed By: #### M Armin, K #### [facility] [address] [place] [address] MicroAlb Creat Ratio,Uon Albumin DL <= 20 mg/L (U) [Mass/Vol] 11.7 mg/dL High 0.0-1.[address] [facility] Comment on above: Order Comment: Comme nt from ua Performed By: #### G LULS #### Point of Care testing , Creatinine, Urine (Random) 70.0 mg/dL High 14.0-26.[address] [facility] Comment on above: Order Comment: Comme nt from ua Performed By: #### G LULS #### Point of Care testing , Microalbumin/Creatini ne Ratio 167.0 mg/g High 0.0-30.[address] [facility] Comment on above: Order Comment: Comme nt from ua Result Comment: 30-3 00 mg/g indicates an increased risk for diabetic nephropathy. Greater than 300 mg/g is consistent with clinical nephropathy. (Am. J. Kidney Disease 1995, 25:107) PERFORMED BY: [address] [place] [address] PATHOLOGIST [employer] SUPERVISOR DHIRAJ CARLOS M.D. Performed By: #### G LULS #### Point of Care testing , Potassiumon 03-16-2023 Potassium [Moles/Vol] 5.2 mmol/L High 3.5-5.1 [facility] Comment on above: Performed By: #### M Armin, K #### [facility] [address] [place], [place] [address] [place] Prothrombin Time INRon 03-16 INR Coag (PPP) [Relative time] 4.5 {INR} Normal [facility] Comment on above: Result Comment: INR Therapeutic [...] heart valves: 3 - 4.5 PERFORMED BY: [place] [address] PATHOLOGIST [employer] SUPERVISOR DHIRAJ CARLOS M.D. Performed By: #### G LULS #### Point of Care testing , PT Coag (PPP) [Time] 51.7 s High 9.0-12.9 [facility] Comment on above: Performed By: #### G LULS #### Point of Care testing , US renal BIon 03-16-2023 US renal BI [facility] [place] [address] [place], [place] [address] Ultrasound Report Signed Patient: Barak Foster MR#: [id number] : 1955 Acct:[id number] Age/Sex: 67 / M ADM Date: 03/15/23 Loc: Room: [address] [place] [address] Type: ADM IN Attending Dr: Meena Falcon [...] Fabio Sellers M.D.03/16/2023 5:02 PM Dictation Location: [place] [address] Tech: Isis Mcgowan Transcribed By: MARGOT 03/16/231701 Dictated By: Fabio Sellers DO 03/16/231700 Signed By: 03/16/231701 Normal [facility] Urinalysison 03-16-2023 Appearance (U) Clear Normal Clear [facility] Comment on above: Order Comment: Name Collection Type:: Clean-Voided Midstream Performed By: #### G LULS #### Point of Care testing , Bilirubin,Urine Negative Normal Negative [facility] Comment on above: Order Comment: Name Collection Type:: Clean-Voided Midstream Performed By: #### G LULS #### Point of Care testing , Color (U) Yellow Normal Yellow [facility] Comment on above: Order Comment: Name Collection Type:: Clean-Voided Midstream Performed By: #### G LULS #### Point of Care testing , Glucose Ql (U) Normal Normal Normal [facility] Comment on above: Order Comment: Name Collection Type:: Clean-Voided Midstream Performed By: #### G LULS #### Point of Care testing , Ketones Ql (U) Negative Normal Negative [facility] Comment on above: Order Comment: Name Collection Type:: Clean-Voided Midstream Performed By: #### G LULS #### Point of Care testing , Leukocyte esterase Test strip Ql (U) Negative Normal Negative [facility] Comment on above: Order Comment: Name Collection Type:: Clean-Voided Midstream Performed By: #### G LULS #### Point of Care testing , Nitrite,Urine Negative Normal Negative [facility] Comment on above: Order Comment: Name Collection Type:: Clean-Voided Midstream Performed By: #### G LULS #### Point of Care testing , Occult Blood,Urine Negative Normal Negative [facility] Comment on above: Order Comment: Name Collection Type:: Clean-Voided Midstream Result Comment: PERF ORMED BY: [facility] [address] [place] [address] PATHOLOGIST [employer]PL[employer]ATING UNIT SUPERVISOR DHIRAJ CARLOS M.D. Performed By: #### G LULS #### Point of Care testing , pH (U) 5.5 [pH] Normal 5.0-9.[address] [facility] Comment on above: Order Comment: Name Collection Type:: Clean-Voided Midstream Performed By: #### G LULS #### Point of Care testing , Protein,Urine Trace High Negative [facility] Comment on above: Order Comment: Name Collection Type:: Clean-Voided Midstream Performed By: #### G LULS #### Point of Care testing , Specificy [place],Urine 1.012 Normal 1.001-1.[address] [facility] Comment on above: Order Comment: Name Collection Type:: Clean-Voided Midstream Performed By: #### G LULS #### Point of Care testing , Urobilinogen,Urine Normal Normal Normal [facility] Comment on above: Order Comment: Name Collection Type:: Clean-Voided Midstream Performed By: #### G LULS #### Point of Care testing , B-Type Natriuretic Peptideon 03-15-2023 Natriuretic peptide B (Bld) [Mass/Vol] 1381.0 pg/mL High 5-[address] [facility] Comment on above: Result Comment: PERF ORMED BY: [place] [address] PATHOLOGIST [employer]OFILM DUPLICATING UNIT SUPERVISOR DHIRAJ CARLOS M.D. Performed By: #### [place] PANEL UPP., BIOFIRECOVNOTDE #### [address] Performed By: #### B MP #### [address] Basic Metabolic Panelon 08-0 Anion gap [Moles/Vol] 15.1 mmol/L High 6.0-15.0 [facility] Comment on above: Performed By: #### R [place] PANEL UPP., BIOFIRECOVNOTDE #### [address] Performed By: #### B MP #### [address] Calcium [Mass/Vol] 9.2 mg/dL Normal 8.6-10.3 [facility] Comment on above: Performed By: #### R [place] PANEL UPP., BIOFIRECOVNOTDE #### [facility] [address] [place] [address] Performed By: #### B MP #### [address] Chloride [Moles/Vol] 101 mmol/L Normal 98-107 [facility] Comment on above: Performed By: #### R [place] PANEL UPP., BIOFIRECOVNOTDE #### [facility] [address] [place] [address] Performed By: #### B MP #### [address] CO2 [Moles/Vol] 23.5 mmol/L Normal 21.0-31.0 [facility] Comment on above: Performed By: #### R [place] PANEL UPP., BIOFIRECOVNOTDE #### [facility] [address] [place] [address] Performed By: #### B MP #### [address] Creatinine [Mass/Vol] 2.44 mg/dL High 0.70-1.30 [facility] Comment on above: Performed By: #### R [place] PANEL UPP., BIOFIRECOVNOTDE #### [facility] [address] [place] [address] Performed By: #### B MP #### [address] Creatinine Clr Calc Pharmacy 40.[address] [facility] Comment on above: Result Comment: PERF ORMED BY: [place] [address] PATHOLOGIST MI[employer]IL[employer] DUPLICATING UNIT SUPERVISOR DHIRAJ CARLOS M.D. Performed By: #### R [place] PANEL UPP., BIOFIRECOVNOTDE #### [address] Performed By: #### B MP #### [address] GFR/1.73 sq M.predicted MDRD (S/P/Bld) [Vol rate/Area] 28.638 mL/min/{1.73_m2} Normal [facility] Comment on above: Performed By: #### R [place] PANEL UPP., BIOFIRECOVNOTDE #### [address] Performed By: #### B MP #### [address] Glucose [Mass/Vol] 64 mg/dL Low 70-100 [facility] Comment on above: Result Comment: [facility] Glucose Reference Range is dependent on time and content of last meal. Glucose of more than 200 mg/dL in a nonstressed, ambulatory subject supports the diagnosis of Diabetes Mellitus. ADA recommended reference range Performed By: #### R [place] PANEL UPP., BIOFIRECOVNOTDE #### [address] Performed By: #### B MP #### [address] Potassium [Moles/Vol] 5.6 mmol/L High 3.5-5.1 [facility] Comment on above: Performed By: #### R [place] PANEL UPP., BIOFIRECOVNOTDE #### [address] Performed By: #### B MP #### [address] Sodium [Moles/Vol] 134 mmol/L Low 136-145 [facility] Comment on above: Performed By: #### R [place] PANEL UPP., BIOFIRECOVNOTDE #### [address] Performed By: #### B MP #### [address] Urea nitrogen [Mass/Vol] 54 mg/dL High 7-[address] [facility] Comment on above: Performed By: #### R [place] PANEL UPP., BIOFIRECOVNOTDE #### [address] Performed By: #### B MP #### [address] BioFire Not Detectedon 03-15 BioFire Not Detected Not detected Normal Not Detecte [facility] Comment on above: Result Comment: This is a duplicate RP2.1 COVID (PCR) result to be used for statistical tracking purpose only. PERFORMED BY: [place] [address] PATHOLOGIST [employer] DUPLICATING UNIT SUPERVISOR DHIRAJ CARLOS M.D. Performed By: #### R [place] PANEL UPP., BIOFIRECOVNOTDE #### [address] Performed By: #### B IOFIRECOVNOTDE, RESP PANEL UPP. #### [address] Complete Blood Count Auto Di ffon 03-15-2023 Basophils (Bld) [#/Vol] 0.1 10*3/uL Normal 0.0-0.[address] [facility] Comment on above: Result Comment: PERF ORMED BY: [place] [address] PATHOLOGIST [employer]PLIC[employer] UNIT SUPERVISOR DHIRAJ CARLOS M.D. Performed By: #### C BC, HEPATIC, PTT, BMP, PT, CK, HS TROP, BNP #### [address] Performed By: #### B MP #### [address] Basophils/100 WBC (Bld) 1.0 % Normal . [facility] Comment on above: Performed By: #### C BC, HEPATIC, PTT, BMP, PT, CK, HS TROP, BNP #### [address] Performed By: #### B MP #### [address] Eosinophils (Bld) [#/Vol] 0.1 10*3/uL Normal 0.0-0.[address] [facility] Comment on above: Performed By: #### C BC, HEPATIC, PTT, BMP, PT, CK, HS TROP, BNP #### [address] Performed By: #### B MP #### [address] Eosinophils/100 WBC (Bld) 1.3 % Normal . [facility] Comment on above: Performed By: #### C BC, HEPATIC, PTT, BMP, PT, CK, HS TROP, BNP #### [address] Performed By: #### B MP #### [address] Erythrocyte distribution width (RBC) [Ratio] 20.9 % High 12.0-14.[address] [facility] Comment on above: Performed By: #### C BC, HEPATIC, PTT, BMP, PT, CK, HS TROP, BNP #### [address] Performed By: #### B MP #### [address] Hematocrit (Bld) [Volume fraction] 37.4 % Low 38.8-50.[address] [facility] Comment on above: Performed By: #### C BC, HEPATIC, PTT, BMP, PT, CK, HS TROP, BNP #### [address] Performed By: #### B MP #### [address] Hemoglobin (Bld) [Mass/Vol] 11.6 g/dL Low 13.0-17.[address] [facility] Comment on above: Performed By: #### C BC, HEPATIC, PTT, BMP, PT, CK, HS TROP, BNP #### [address] Performed By: #### B MP #### [address] Lymphocytes (Bld) [#/Vol] 0.9 10*3/uL Low 1.00-4.[address] [facility] Comment on above: Performed By: #### C BC, HEPATIC, PTT, BMP, PT, CK, HS TROP, BNP #### [address] Performed By: #### B MP #### [address] Lymphocytes/100 WBC (Bld) 10.1 % Normal . [facility] Comment on above: Performed By: #### C BC, HEPATIC, PTT, BMP, PT, CK, HS TROP, BNP #### [address] Performed By: #### B MP #### [address] MCH (RBC) [Entitic mass] 24.9 pg Low 27.5-35.[address] [facility] Comment on above: Performed By: #### C BC, HEPATIC, PTT, BMP, PT, CK, HS TROP, BNP #### [address] Performed By: #### B MP #### [address] MCV (RBC) [Entitic vol] 80.4 fL Low 83.5-[address] [facility] Comment on above: Performed By: #### C BC, HEPATIC, PTT, BMP, PT, CK, HS TROP, BNP #### [address] Performed By: #### B MP #### [address] Mean Corpuscular HGB Conc 31.0 g/dL Low 32.5-35.[address] [facility] Comment on above: Performed By: #### C BC, HEPATIC, PTT, BMP, PT, CK, HS TROP, BNP #### [address] Performed By: #### B MP #### [address] Monocytes (Bld) [#/Vol] 0.7 10*3/uL Normal 0.0-0.[address] [facility] Comment on above: Performed By: #### C BC, HEPATIC, PTT, BMP, PT, CK, HS TROP, BNP #### [address] Performed By: #### B MP #### [address] Monocytes/100 WBC (Bld) 15.80 % Normal 0.00-20.[address] [facility] Comment on above: Performed By: #### C BC, HEPATIC, PTT, BMP, PT, CK, HS TROP, BNP #### [address] Performed By: #### B MP #### [address] Monocytes/100 WBC (Bld) 8.4 % Normal . [facility] Comment on above: Performed By: #### C BC, HEPATIC, PTT, BMP, PT, CK, HS TROP, BNP #### [address] Performed By: #### B MP #### [address] Neutrophils (Bld) [#/Vol] 6.9 10*3/uL Normal 1.8-7.[address] [facility] Comment on above: Performed By: #### C BC, HEPATIC, PTT, BMP, PT, CK, HS TROP, BNP #### [address] Performed By: #### B MP #### [address] Neutrophils/100 WBC (Bld) 79.2 % Normal . [facility] Comment on above: Performed By: #### C BC, HEPATIC, PTT, BMP, PT, CK, HS TROP, BNP #### [address] Performed By: #### B MP #### [address] NRBC% 0.4 /100{WBC} Normal 0-0.[address] [facility] Comment on above: Performed By: #### C BC, HEPATIC, PTT, BMP, PT, CK, HS TROP, BNP #### [address] Performed By: #### B MP #### [address] Platelet mean volume (Bld) [Entitic vol] 7.5 fL Normal 6.6-10.[address] [facility] Comment on above: Performed By: #### C BC, HEPATIC, PTT, BMP, PT, CK, HS TROP, BNP #### [address] Performed By: #### B MP #### [address] Platelets (Bld) [#/Vol] 290 10*3/uL Normal 150-[address] [facility] Comment on above: Performed By: #### C BC, HEPATIC, PTT, BMP, PT, CK, HS TROP, BNP #### [address] Performed By: #### B MP #### [address] RBC (Bld) [#/Vol] 4.66 10*6/uL Normal 3.90-5.60 [facility] Comment on above: Performed By: #### C BC, HEPATIC, PTT, BMP, PT, CK, HS TROP, BNP #### [address] Performed By: #### B MP #### [facility] [address] WBC (Bld) [#/Vol] 8.7 10*3/uL Normal 4.1-10.5 [facility] Comment on above: Performed By: #### C BC, HEPATIC, PTT, BMP, PT, CK, HS TROP, BNP #### [address] Performed By: #### B MP #### [address] Creatine Kinaseon 03-15-2023 CK [Catalytic activity/Vol] 252 U/L High 30-[address] [facility] Comment on above: Performed By: #### R [place] PANEL UPP., BIOFIRECOVNOTDE #### [address] Performed By: #### B MP #### [address] ECG 12 lead ECGon 03-15-2023 ECG 12 lead ECG [facility] [place] [address] [place] [address] Electrocardiograph Report Signed Patient: Barak Foster MR#: [id number] : 1955 Acct:[id number] Age/Sex: 67 / M ADM Date: 03/15/23 Loc: Room: [address] [place] [address] Type: ADM IN Attending Dr: Meena Falcon [...] ECGs available Confirmed by Corey Londono DO ([id number]) on 03/15/2023 3:10:33 PM Referred By: Electronically Signed By:Corey Londono DO Transcribed By: MUS Signed By Corey Londono DO 3 1510 [facility] ECG 12 lead ECG [facility] [place] [address] [place], [place] [address] Electrocardiograph Report Signed Patient: Barak Foster MR#: [id number] : 1955 Acct:[id number] Age/Sex: 67 / M ADM Date: 03/15/23 Loc: Room: [address] [place] [address] Type: ADM IN Attending Dr: Meena Falcon [...] ECGs available Confirmed by Corey Londono DO ([id number]) on 03/15/2023 3:10:33 PM Referred By: Electronically Signed By:Corey Londono DO Transcribed By: MUS Signed By Corey Londono DO 3 1510 [facility] Glucose Poct Glucometerson 0 03-15-2023 Glucose [Mass/Vol] 131 mg/dL Normal [facility] Comment on above: Result Comment: [facility] Glucose Reference Range is dependent on time and content of last meal. Glucose of more than 200 mg/dL in a nonstressed, ambulatory subject supports the diagnosis of Diabetes Mellitus. PERFORMED BY: [place] [address] PATHOLOGIST MI[employer]OFILM DUPLICATING UNIT SUPERVISOR DHIRAJ CARLOS M.D. Performed By: #### G LULS #### Point of Care testing , Hepatic Panelon 03-15-2023 Albumin [Mass/Vol] 3.8 g/dL Normal 3.5-5.7 [facility] Comment on above: Performed By: #### R [place] PANEL UPP., BIOFIRECOVNOTDE #### [address] Performed By: #### B MP #### [address] Albumin/Globulin [Mass ratio] 1.4 {ratio} Normal [facility] Comment on above: Performed By: #### R [place] PANEL UPP., BIOFIRECOVNOTDE #### [address] Performed By: #### B MP #### [address] ALP [Catalytic activity/Vol] 153 U/L High 34-[address] [facility] Comment on above: Performed By: #### R [place] PANEL UPP., BIOFIRECOVNOTDE #### [address] Performed By: #### B MP #### [address] ALT [Catalytic activity/Vol] 18 U/L Normal 7-[address] [facility] Comment on above: Performed By: #### R [place] PANEL UPP., BIOFIRECOVNOTDE #### [address] Performed By: #### B MP #### [address] AST [Catalytic activity/Vol] 22 U/L Normal 13-[address] [facility] Comment on above: Performed By: #### R [place] PANEL UPP., BIOFIRECOVNOTDE #### [address] Performed By: #### B MP #### [address] Bilirubin [Mass/Vol] 1.5 mg/dL High 0.3-1.0 [facility] Comment on above: Result Comment: Samp les from patients who have taken Naproxen have shown spurious elevation in Total Bilirubin levels. A metabolite of Naproxen, O-desmethylnaproxen, has been shown to interfere with the Jendrassik-Grof method for measuring Total Bilirubin. Performed By: #### R [place] PANEL UPP., BIOFIRECOVNOTDE #### [address] Performed By: #### B MP #### [address] Bilirubin,Indirect 1.0 mg/dL Normal [facility] Comment on above: Performed By: #### R [place] PANEL UPP., BIOFIRECOVNOTDE #### [address] Performed By: #### B MP #### [address] Bilirubin.indirect [Mass/Vol] 0.50 mg/dL High 0.03-0.[address] [facility] Comment on above: Performed By: #### R [place] PANEL UPP., BIOFIRECOVNOTDE #### [address] Performed By: #### B MP #### [address] Globulin (S) [Mass/Vol] 2.7 g/dL Normal [facility] Comment on above: Performed By: #### R [place] PANEL UPP., BIOFIRECOVNOTDE #### [address] Performed By: #### B MP #### [address] Protein [Mass/Vol] 6.5 g/dL Normal 6.4-8.9 [facility] Comment on above: Performed By: #### R [place] PANEL UPP., BIOFIRECOVNOTDE #### [address] Performed By: #### B MP #### [address] Partial Thromboplastin Timeo n 03-15-2023 aPTT Coag (Bld) [Time] 42.7 s High 25.1-36.[address] [facility] Comment on above: Result Comment: PERF ORMED BY: [place] [address] PATHOLOGIST [employer] SUPERVISOR DHIRAJ CARLOS M.D. Performed By: #### C BC, HEPATIC, PTT, BMP, PT, CK, HS TROP, BNP #### [address] Performed By: #### B MP #### [address] Prothrombin Time INRon 03-15 INR Coag (PPP) [Relative time] 4.3 {INR} Normal [facility] Comment on above: Result Comment: INR Therapeutic [...] BMP, PT, CK, HS TROP, BNP #### [address] Performed By: #### G BROCK #### Point of Care testing , PT Coag (PPP) [Time] 49.7 s High 9.0-12.9 [facility] Comment on above: Performed By: #### C BC, HEPATIC, PTT, BMP, PT, CK, HS TROP, BNP #### [address] Performed By: #### G LUALBERTO #### [...] A H3 Blank Space ------ PERFORMED BY: [place] [address] PATHOLOGIST [employer]PLICATING UNIT SUPERVISOR DHIRAJ CARLOS M.D. [facility] Comment on above: Performed By: #### R [place] PANEL UPP., BIOFIRECOVNOTDE #### [address] Performed By: #### B IOFIRECOVNOTDE, RESP PANEL UPP. #### [address] Troponin I High Sensitivityo n 03-15-2023 Troponin I High Sensitivity 35.7 pg/mL High 0.0-20.[address] [facility] Comment on above: Result Comment: PERF ORMED BY: [place] [address] PATHOLOGIST [employer]PL[employer]ATING UNIT SUPERVISOR DHIRAJ CARLOS M.D. Performed By: #### R [place] PANEL UPP., BIOFIRECOVNOTDE #### [address] Performed By: #### B #### [address] XR chest 1V portableon 03-15 XR chest 1V portable [place] [address] XRay Report Signed Patient: Barak Foster MR#: [id number] : 1955 Acct:[id number] Age/Sex: 67 / M ADM Date: 03/15/23 [...] Srinivasan Jr., D.OLizzette03/15/2023 9:54 AM Dictation Location: [place] [address] Transcribed By: [facility] 03/15/23953 Dictated By: Antwon Srinivasan Jr, DO 03/15/23952 Signed By: 03/15/23953 [facility] XR chest 1V portable [place] [address] XRay Report Signed Patient: Barak Foster MR#: [id number] : 1955 Acct:[id number] Age/Sex: 67 / M ADM Date: 03/15/23 Loc: Room: [address] [place] [address] Type: ADM IN Attending Dr: Meena Falcon [...] PNEUMONIA. Impression dictated by: Antwon Srinivasan Jr., Cecilia03/15/2023 9:54 AM Dictation Location: [place] [address] Transcribed By: [facility] 03/15/23953 Dictated By: Antwon Srinivasan Jr, DO 03/15/23952 Signed By: 03/15/23953 [facility] Basic Metabolic Profon 03-14 Anion gap [Moles/Vol] 13 mmol/L Normal 9-[address] [facility] Comment on above: Performed By: #### G LYHGB, LIPR #### [address] [id number] Chief Of Safety And Protection: Oh Jean MD #### EVER, CP #### [facility] [address] [place], [place] [id number] Chief Of Safety And Protection: Sy Rojas MD BUN/CRE Ratio 21 High 9-20 [facility] Comment on above: Performed By: #### Armin LYHGB, LIPR #### [address] [address] Chief Of Safety And Protection: Oh Jean MD #### EVER, CP #### [facility] [address] [place], [place] [id number] Chief Of Safety And Protection: Sy Rojas MD Calcium [Mass/Vol] 9.3 mg/dL Normal 8.6-10.4 [facility] Comment on above: Performed By: #### G LYHGB, LIPR #### [address] [address] Chief Of Safety And Protection: Oh Jean MD #### EVER, CP #### [facility] [address] [place], [place] [id number] Chief Of Safety And Protection: Sy Rojas MD Chloride [Moles/Vol] 97 mmol/L Low 98-107 [facility] Comment on above: Performed By: #### G LYHGB, LIPR #### [facility] [address] [place] [address] Chief Of Safety And Protection: Oh Jean MD #### ZFAST, CP #### [facility] [address] [place], [place] [id number] Chief Of Safety And Protection: Sy Rojas MD CO2 [Moles/Vol] 21 mmol/L Normal 20-31 [facility] Comment on above: Performed By: #### G LYHGB, LIPR #### [facility] [address] [place] [address] Chief Of Safety And Protection: Oh Jean MD #### ZFAST, CP #### [facility] [address] [place], [place] [id number] Chief Of Safety And Protection: Sy Rojas MD Creatinine [Mass/Vol] 2.3 mg/dL High 0.7-1.[address] [facility] Comment on above: Performed By: #### G LYHGB, LIPR #### [facility] [address] [place], [place] [id number] Chief Of Safety And Protection: Oh Jean MD #### ZFAST, CP #### [facility] [address] [place], [place] [phone] Chief Of Safety And Protection: Sy Rojas MD GFR/1.73 sq M.predicted among non-blacks MDRD (S/P/Bld) [Vol rate/Area] 31 mL/min/{1.73_m2} Low >60 [facility] Comment on above: Result Comment: These results [...] Performed By: #### G LYHGB, LIPR #### [place] [address] [place] [address] Chief Of Safety And Protection: Oh Jean MD #### EVER, CP #### [facility] [address] [place], [place] [phone] Chief Of Safety And Protection: Sy Rojas MD Glucose [Mass/Vol] 91 mg/dL Normal 70-99 [facility] Comment on above: Performed By: #### G LYHGB, LIPR #### [address] [address] Chief Of Safety And Protection: Oh Jean MD #### EVER, CP #### [facility] [address] [place], [place] [phone] Chief Of Safety And Protection: Sy Rojas MD Potassium [Moles/Vol] 5.4 mmol/L High 3.7-5.[address] [facility] Comment on above: Performed By: #### G LYHGReina, LIPR #### [address] [address] Chief Of Safety And Protection: Oh Jean MD #### EVER, CP #### [facility] [address] [place], [place] [phone] Chief Of Safety And Protection: Sy Rojas MD Sodium [Moles/Vol] 131 mmol/L Low 135-144 [facility] Comment on above: Performed By: #### G LYHGB, LIPR #### [address] [address] Chief Of Safety And Protection: Oh Jean MD #### ZFAST, CP #### [facility] [address] [place], [place] [phone] Chief Of Safety And Protection: Sy Rojas MD Urea nitrogen [Mass/Vol] 49 mg/dL High 8-23 [facility] Comment on above: Performed By: #### G LYHGB, LIPR #### [facility] [address] [place] [address] Chief Of Safety And Protection: Oh Jean MD #### ZFAST, CP #### [facility] [address] [place] [address] Chief Of Safety And Protection: Sy Rojas MD Basic Metabolic Profon 03-07 Anion gap [Moles/Vol] 15 mmol/L Normal 9-[address] [facility] Comment on above: Performed By: #### G LYHGB, LIPR #### [facility] [address] [place] [address] Chief Of Safety And Protection: Oh Jean MD #### EVER, CP #### [facility] [address] [place], [place] [phone] Chief Of Safety And Protection: Sy Rojas MD BUN/CRE Ratio 27 High 9-20 [facility] Comment on above: Performed By: #### G LYHGB, LIPR #### [facility] [address] [place] [address] Chief Of Safety And Protection: Oh Jean MD #### EVER, CP #### [facility] [address] [place] [address] Chief Of Safety And Protection: Sy Rojas MD Calcium [Mass/Vol] 9.6 mg/dL Normal 8.6-10.4 [facility] Comment on above: Performed By: #### G LYHGB, LIPR #### [facility] [address] [place] [address] Chief Of Safety And Protection: Oh Jean MD #### ZFAST, CP #### [facility] [address] [place] [address] Chief Of Safety And Protection: Sy Rojas MD Chloride [Moles/Vol] 99 mmol/L Normal 98-107 [facility] Comment on above: Performed By: #### G LYHGB, LIPR #### [facility] [address] [place], [place] [phone] Chief Of Safety And Protection: Oh Jaen MD #### ZFAST, CP #### [facility] [address] [place], [place] [id number] Chief Of Safety And Protection: Sy Rojas MD CO2 [Moles/Vol] 22 mmol/L Normal 20-31 [facility] Comment on above: Performed By: #### G LYHGB, LIPR #### [facility] [address] [place] [address] Chief Of Safety And Protection: Oh Jean MD #### BRYCEAST, CP #### [facility] [address] [place], [place] [phone] Chief Of Safety And Protection: Sy Rojas MD Creatinine [Mass/Vol] 2.1 mg/dL High 0.7-1.[address] [facility] Comment on above: Performed By: #### G LYHGB, LIPR #### [facility] [address] [place], [place] [id number] Chief Of Safety And Protection: Oh Jean MD #### ZFAST, CP #### [facility] [address] [place], [place] [id number] Chief Of Safety And Protection: Sy Rojas MD GFR/1.73 sq M.predicted among non-blacks MDRD (S/P/Bld) [Vol rate/Area] 34 mL/min/{1.73_m2} Low >60 [facility] Comment on above: Result Comment: These results [...] Performed By: #### G LYHGB, LIPR #### [facility] [address] [place] [address] Chief Of Safety And Protection: Oh Jean MD #### EVER, CP #### [facility] [address] [place] [address] Chief Of Safety And Protection: Sy Rojas MD Glucose [Mass/Vol] 104 mg/dL High 70-99 [facility] Comment on above: Performed By: #### G LYHGB, LIPR #### [facility] [address] [place] [address] Chief Of Safety And Protection: Oh Jean MD #### EVER, CP #### [facility] [address] [place] [address] Chief Of Safety And Protection: Sy Rojas MD Potassium [Moles/Vol] 5.2 mmol/L Normal 3.7-5.[address] [facility] Comment on above: Performed By: #### Armin LYHGB, LIPR #### [address] [address] Chief Of Safety And Protection: Oh Jean MD #### EVER, CP #### [facility] [address] [place] [address] Chief Of Safety And Protection: Sy Rojas MD Sodium [Moles/Vol] 136 mmol/L Normal 135-144 [facility] Comment on above: Performed By: #### Armin LYHGB, LIPR #### [facility] [address] [place] [address] Chief Of Safety And Protection: Oh Jean MD #### EVER, CP #### [facility] [address] [place] [address] Chief Of Safety And Protection: Sy Rojas MD Urea nitrogen [Mass/Vol] 57 mg/dL High 8-23 [facility] Comment on above: Performed By: #### G LYHGB, LIPR #### [address] [place] [address] Chief Of Safety And Protection: Oh Jean MD #### ZFAST, CP #### [facility] [address] [place] [address] Chief Of Safety And Protection: Sy Rojas MD XR CHEST (2 VW)on [...] Vida Tinajero MD 02/21/23 Final result Normal [facility] Cardiomegaly with vascular congestion and possible small left pleural effusion. [facility] CONSOLIDATED EXAM: XR CHEST (2 VW ) HISTORY: Reason for exam:->cad COMPARISON: 02/22/2022. TECHNIQUE: Two views. FINDINGS: Pacemaker is again seen. Cardiomegaly persists. Mild vascular congestion is noted. There may be a small left pleural effusion as evidenced by blunting of the left costophrenic angle. [facility] CON[facility] Vida Tinajero MD - 02/21/2023 EXAM: XR CHEST (2 VW) HISTORY: Reason for exam:->cad COMPARISON: 02/22/2022. TECHNIQUE: Two views. FINDINGS: Pacemaker is again seen. Cardiomegaly persists. Mild vascular congestion is noted. There may be a small left pleural effusion as evidenced by blunting of the left costophrenic angle. IMPRESSION: Cardiomegaly with vascular congestion and possible small left pleural effusion. [facility] XR CHEST (2 VW)Ordered By: Vida Tinajero on 02-21-2023 [facility] CBC with Diffon 02-20-2023 Morphology Jarrod (Bld) [Interp] MODERATE Normal [facility] Comment on above: Result Comment: ANIS OCYTOSIS SLIGHT POIKILOCYTOSIS FEW OVALOCYTES FEW ACANTHOCYTES Performed By: #### Z FAST, CDP, CP, MG, TSHX #### [facility] [address] [place] [address] Chief Of Safety And Protection: Sy Rojas MD #### LIPR, VD25 #### [address] [id number] Chief Of Safety And Protection: Oh Jean MD Abs. Basophil 0.10 k/uL Normal 0.0-0.2 [facility] Comment on above: Performed By: #### Z FAST, CDP, CP, MG, TSHX #### [facility] [address] [place] [address] Chief Of Safety And Protection: Sy Rojas MD #### LIPR, VD25 #### [place] [id number] Chief Of Safety And Protection: Oh Jean MD Abs.Neutrophil (Seg) 6.40 k/uL Normal 2.1-6.5 [facility] Comment on above: Performed By: #### Z FAST, CDP, CP, MG, TSHX #### [facility] [address] [place] [address] Chief Of Safety And Protection: Sy Rojas MD #### LIPR, VD25 #### [place] [address] Chief Of Safety And Protection: Oh Jean MD Basophils/100 WBC (Bld) 1 % Normal 0-2 [facility] Comment on above: Performed By: #### Z FAST, CDP, CP, MG, TSHX #### [facility] [address] [place] [address] Chief Of Safety And Protection: Sy Rojas MD #### LIPR, VD25 #### [address] [phone] Chief Of Safety And Protection: Oh Jean MD Eosinophils (Bld) [#/Vol] 0.20 10*3/uL Normal 0.0-0.4 [facility] Comment on above: Performed By: #### Z FAST, CDP, CP, MG, TSHX #### [facility] [address] [place] [address] Chief Of Safety And Protection: Sy Rojas MD #### GAMALIEL, VD25 #### [address] [id number] Chief Of Safety And Protection: Oh Jean MD Eosinophils/100 WBC (Bld) 2 % Normal 0-5 [facility] Comment on above: Performed By: #### Anna FAST, CDP, CP, MG, TSHX #### [facility] [address] [place] [address] Chief Of Safety And Protection: Sy Rojas MD #### GREGORIO25 #### [place] [id number] Chief Of Safety And Protection: Oh Jean MD Erythrocyte distribution width (RBC) [Ratio] 20.6 % High 12.1-15.2 [facility] Comment on above: Performed By: #### Anna FAST, CDP, CP, MG, TSHX #### [facility] [address] [place] [address] Chief Of Safety And Protection: Sy Rojas MD #### GREGORIO25 #### [place] [address] Chief Of Safety And Protection: Oh Jean MD Hematocrit (Bld) [Volume fraction] 39.7 % Low 41-53 [facility] Comment on above: Performed By: #### Z FAST, CDP, CP, MG, TSHX #### [facility] [address] [place] [id number] Chief Of Safety And Protection: Sy Rojas MD #### GAMALIEL VD25 #### [address] [phone] Chief Of Safety And Protection: Oh Jean MD Hemoglobin (Bld) [Mass/Vol] 12.4 g/dL Low 13.5-17.5 [facility] Comment on above: Performed By: #### Z FAST, CDP, CP, MG, TSHX #### [facility] [address] [place], [place] [id number] Chief Of Safety And Protection: Sy Rojas MD #### LIPR, VD25 #### [address] [phone] Chief Of Safety And Protection: Oh Jean MD Lymphocytes (Bld) [#/Vol] 1.10 10*3/uL Normal 1.0-4.8 [facility] Comment on above: Performed By: #### Z FAST, CDP, CP, MG, TSHX #### [facility] [address] [place] [address] Chief Of Safety And Protection: Sy Rojas MD #### LIPR, VD25 #### [address] [phone] Chief Of Safety And Protection: Oh Jean MD Lymphocytes/100 WBC (Bld) 13 % Normal 13-44 [facility] Comment on above: Performed By: #### Z FAST, CDP, CP, MG, TSHX #### [facility] [address] [place] [id number] Chief Of Safety And Protection: Sy Rojas MD #### LIPR, VD25 #### [address] [id number] Chief Of Safety And Protection: Oh Jean MD MCH (RBC) [Entitic mass] 25.8 pg Low 26-34 [facility] Comment on above: Performed By: #### Z FAST, CDP, CP, MG, TSHX #### [facility] [address] [place], [place] [id number] Chief Of Safety And Protection: Sy Rojas MD #### LIPR, VD25 #### [address] [address] Chief Of Safety And Protection: Oh Jean MD MCHC (RBC) [Mass/Vol] 31.4 g/dL Normal 31-[address] [facility] Comment on above: Performed By: #### Z FAST, CDP, CP, MG, TSHX #### [facility] [address] [place] [address] Chief Of Safety And Protection: Sy Rojas MD #### LIPR, VD25 #### [place] [address] Chief Of Safety And Protection: Oh Jean MD MCV (RBC) [Entitic vol] 82.1 fL Normal 80-100 [facility] Comment on above: Performed By: #### Z FAST, CDP, CP, MG, TSHX #### [facility] [address] [place] [address] Chief Of Safety And Protection: Sy Rojas MD #### LIPR, VD25 #### [place] [address] Chief Of Safety And Protection: Oh Jean MD Monocytes (Bld) [#/Vol] 0.90 10*3/uL Normal 0.0-1.0 [facility] Comment on above: Performed By: #### Z FAST, CDP, CP, MG, TSHX #### [facility] [address] [place] [address] Chief Of Safety And Protection: Sy Rojas MD #### LIPR, VD25 #### [place] [address] Chief Of Safety And Protection: Oh Jean MD Monocytes/100 WBC (Bld) 10 % High 5-9 [facility] Comment on above: Performed By: #### Z FAST, CDP, CP, MG, TSHX #### [facility] [address] [place] [id number] Chief Of Safety And Protection: Sy Rojas MD #### LIPR, VD25 #### [address] [phone] Chief Of Safety And Protection: Oh Jean MD Neutrophil (Seg) 74 % Normal 39-75 [facility] Comment on above: Performed By: #### Z FAST, CDP, CP, MG, TSHX #### [facility] [address] [place] [id number] Chief Of Safety And Protection: Sy Rojas MD #### LIPR, VD25 #### [place] [phone] Chief Of Safety And Protection: Oh Jean MD Platelets (Bld) [#/Vol] 282 10*3/uL Normal 140-450 [facility] Comment on above: Performed By: #### Z FAST, CDP, CP, MG, TSHX #### [facility] [address] [place] [id number] Chief Of Safety And Protection: Sy Rojas MD #### LIPR, VD25 #### [place] [address] Chief Of Safety And Protection: Oh Jean MD RBC (Bld) [#/Vol] 4.84 10*6/uL Normal 4.5-5.9 [facility] Comment on above: Performed By: #### Z FAST, CDP, CP, MG, TSHX #### [facility] [address] [place] [id number] Chief Of Safety And Protection: Sy Rojas MD #### LIPR, VD25 #### [place] [address] Chief Of Safety And Protection: Oh Jean MD WBC (Bld) [#/Vol] 8.7 10*3/uL Normal 3.5-11.0 [facility] Comment on above: Performed By: #### Z FAST, CDP, CP, MG, TSHX #### [facility] [address] [place] [address] Chief Of Safety And Protection: Sy Rojas MD #### LIPR, VD25 #### [address] [address] Chief Of Safety And Protection: Oh Jean MD Comp Metabolic Profon 2022 Albumin [Mass/Vol] 3.6 g/dL Normal 3.5-5.2 [facility] Comment on above: Performed By: #### G LYHGB, LIPR #### [address] [address] Chief Of Safety And Protection: Oh Jean MD #### BRYCEAST, CP #### [facility] [address] [place] [address] Chief Of Safety And Protection: Sy Rojas MD Alkaline Phos 168 U/L High 40-129 [facility] Comment on above: Performed By: #### G LYHGB, LIPR #### [facility] [address] [place] [address] Chief Of Safety And Protection: Oh Jean MD #### EVER, CP #### [facility] [address] [place] [address] Chief Of Safety And Protection: Sy Rojas MD ALT [Catalytic activity/Vol] 23 U/L Normal 5-41 [facility] Comment on above: Performed By: #### G LYHGB, LIPR #### [address] [address] Chief Of Safety And Protection: Oh Jean MD #### ZFAST, CP #### [facility] [address] [place] [address] Chief Of Safety And Protection: Sy Rojas MD Anion gap [Moles/Vol] 14 mmol/L Normal 9-[address] [facility] Comment on above: Performed By: #### G LYHGB, LIPR #### [facility] [address] [place] [address] Chief Of Safety And Protection: Oh Jean MD #### EVER, CP #### [facility] [address] [place] [address] Chief Of Safety And Protection: Sy Rojas MD AST [Catalytic activity/Vol] 26 U/L Normal <40 [facility] Comment on above: Performed By: #### Armin LYHGB, LIPR #### [facility] [address] [place] [address] Chief Of Safety And Protection: Oh Jean MD #### EVER, CP #### [facility] [address] [place] [address] Chief Of Safety And Protection: Sy Rojas MD Bilirubin [Mass/Vol] 1.8 mg/dL High 0.3-1.2 [facility] Comment on above: Performed By: #### Armin LYHGB, LIPR #### [address] [address] Chief Of Safety And Protection: Oh Jean MD #### EVER, CP #### [facility] [address] [place] [address] Chief Of Safety And Protection: Sy Rojas MD BUN/CRE Ratio 22 High 9-20 [facility] Comment on above: Performed By: #### Armin LYHGB, LIPR #### [facility] [address] [place] [address] Chief Of Safety And Protection: Oh Jean MD #### ZFAST, CP #### [facility] [address] [place] [address] Chief Of Safety And Protection: Sy Rojas MD Calcium [Mass/Vol] 9.7 mg/dL Normal 8.6-10.4 [facility] Comment on above: Performed By: #### Armin LYHGB, LIPR #### [address], [place] [phone] Chief Of Safety And Protection: Oh Jean MD #### BRYCEAST, CP #### [facility] [address] [place], [place] [phone] Chief Of Safety And Protection: Sy Rojas MD Chloride [Moles/Vol] 105 mmol/L Normal 98-107 [facility] Comment on above: Performed By: #### G LYHGB, LIPR #### [address] [phone] Chief Of Safety And Protection: Oh Jean MD #### EVER, CP #### [facility] [address] [place] [address] Chief Of Safety And Protection: Sy Rojas MD CO2 [Moles/Vol] 21 mmol/L Normal 20-31 [facility] Comment on above: Performed By: #### Armin LYHGB, LIPR #### [address] [phone] Chief Of Safety And Protection: Oh Jean MD #### EVER, CP #### [facility] [address] [place] [address] Chief Of Safety And Protection: Sy Rojas MD Creatinine [Mass/Vol] 1.9 mg/dL High 0.7-1.[address] [facility] Comment on above: Performed By: #### Armin LYHGB, LIPR #### [address] [id number] Chief Of Safety And Protection: Oh Jean MD #### EVER, CP #### [facility] [address] [place] [address] Chief Of Safety And Protection: Sy Rojas MD GFR/1.73 sq M.predicted among non-blacks MDRD (S/P/Bld) [Vol rate/Area] 39 mL/min/{1.73_m2} Low >60 [facility] Comment on above: Result Comment: These results [...] Performed By: #### G LYHGB, LIPR #### [address] [phone] Chief Of Safety And Protection: Oh Jean MD #### BRYCEAST, CP #### [facility] [address] [place], [place] [phone] Chief Of Safety And Protection: Sy Rojas MD Glucose [Mass/Vol] 95 mg/dL Normal 70-99 [facility] Comment on above: Performed By: #### G LYHGB, LIPR #### [address] [address] Chief Of Safety And Protection: Oh Jean MD #### ZFAST, CP #### [facility] [address] [place], [place] [phone] Chief Of Safety And Protection: Sy Rojas MD Potassium [Moles/Vol] 5.6 mmol/L High 3.7-5.[address] [facility] Comment on above: Performed By: #### G LYHGB, LIPR #### [address] [address] Chief Of Safety And Protection: Oh Jean MD #### ZFAST, CP #### [facility] [address] [place], [place] [phone] Chief Of Safety And Protection: Sy Rojas MD Protein [Mass/Vol] 6.7 g/dL Normal 6.4-8.3 [facility] Comment on above: Performed By: #### G LYHGB, LIPR #### [address] [address] Chief Of Safety And Protection: Oh Jean MD #### ZFAST, CP #### [facility] [address] [place], [place] [id number] Chief Of Safety And Protection: Sy Rojas MD Sodium [Moles/Vol] 140 mmol/L Normal 135-144 [facility] Comment on above: Performed By: #### G LYHGB, LIPR #### [address] [phone] Chief Of Safety And Protection: Oh Jean MD #### ZFAST, CP #### [facility] [address] [place] [address] Chief Of Safety And Protection: Sy Rojas MD Urea nitrogen [Mass/Vol] 42 mg/dL High 8-23 [facility] Comment on above: Performed By: #### G LYHGB, LIPR #### [address] [phone] Chief Of Safety And Protection: Oh Jean MD #### ZFAST, CP #### [facility] [address] [place] [address] Chief Of Safety And Protection: Sy Rojas MD Albumin [Mass/Vol] 3.6 g/dL Normal 3.5-5.2 [facility] Comment on above: Performed By: #### Z FAST, CDP, CP, MG, TSHX #### [facility] [address] [place], [place] [phone] Chief Of Safety And Protection: Sy Rojas MD #### LIPR, VD25 #### [address] [phone] Chief Of Safety And Protection: Oh Jean MD Alkaline Phos 172 U/L High 40-129 [facility] Comment on above: Performed By: #### Z FAST, CDP, CP, MG, TSHX #### [facility] [address] [place] [address] Chief Of Safety And Protection: Sy Rojas MD #### LIPR, VD25 #### [facility] [address] [place], [place] 1869508 Chief Of Safety And Protection: Oh Jean MD ALT [Catalytic activity/Vol] 22 U/L Normal 5-41 [facility] Comment on above: Performed By: #### Z FAST, CDP, CP, MG, TSHX #### [facility] [address] [place] [address] Chief Of Safety And Protection: Sy Rojas MD #### LIPR, VD25 #### [place] [address] [place], [place] [phone] Chief Of Safety And Protection: Oh Jean MD Anion gap [Moles/Vol] 12 mmol/L Normal 9-[address] [facility] Comment on above: Performed By: #### Z FAST, CDP, CP, MG, TSHX #### [facility] [address] [place] [address] Chief Of Safety And Protection: Sy Rojas MD #### LIPR, VD25 #### [place] [address] [place], [place] [address] Chief Of Safety And Protection: Oh Jean MD AST [Catalytic activity/Vol] 25 U/L Normal <40 [facility] Comment on above: Performed By: #### Z FAST, CDP, CP, MG, TSHX #### [facility] [address] [place] [address] Chief Of Safety And Protection: Sy Rojas MD #### LIPR, VD25 #### [place] [address] [place], [place] 5725508 Chief Of Safety And Protection: Oh Jean MD Bilirubin [Mass/Vol] 1.8 mg/dL High 0.3-1.2 [facility] Comment on above: Performed By: #### Z FAST, CDP, CP, MG, TSHX #### [facility] [address] [place] [address] Chief Of Safety And Protection: Sy Rojas MD #### LIPR, VD25 #### [address] [phone] Chief Of Safety And Protection: Oh Jean MD BUN/CRE Ratio 22 High 9-20 [facility] Comment on above: Performed By: #### Z FAST, CDP, CP, MG, TSHX #### [facility] [address] [place] [phone] ( Chief Of Safety And Protection: Sy Rojas MD #### LIPR, VD25 #### [address] [phone] Chief Of Safety And Protection: Oh Jean MD Calcium [Mass/Vol] 9.8 mg/dL Normal 8.6-10.4 [facility] Comment on above: Performed By: #### Z FAST, CDP, CP, MG, TSHX #### [facility] [address] [place] [id number] Chief Of Safety And Protection: Sy Rojas MD #### LIPR, VD25 #### [place] [phone] Chief Of Safety And Protection: Oh Jean MD Chloride [Moles/Vol] 105 mmol/L Normal 98-107 [facility] Comment on above: Performed By: #### Z FAST, CDP, CP, MG, TSHX #### [facility] [address] [place] [address] Chief Of Safety And Protection: Sy Rojas MD #### LIPR, VD25 #### [address] [phone] Chief Of Safety And Protection: Oh Jean MD CO2 [Moles/Vol] 23 mmol/L Normal 20-31 [facility] Comment on above: Performed By: #### Z FAST, CDP, CP, MG, TSHX #### [facility] [address] [place] [phone] Chief Of Safety And Protection: Sy Rojas MD #### GAMALIEL, VD25 #### [facility] [address] [place], [place] [phone] Chief Of Safety And Protection: Oh Jean MD Creatinine [Mass/Vol] 1.9 mg/dL High 0.7-1.[address] [facility] Comment on above: Performed By: #### Z FAST, CDP, CP, MG, TSHX #### [facility] [address] [place], [place] [phone] Chief Of Safety And Protection: Sy Rojas MD #### GAAMLIEL, VD25 #### [place] [address]181 [place] [address] Chief Of Safety And Protection: Oh Jean MD GFR/1.73 sq M.predicted among non-blacks MDRD (S/P/Bld) [Vol rate/Area] 39 mL/min/{1.73_m2} Low >60 [facility] Comment on above: Result Comment: These results [...] Z FAST, CDP, CP, MG, TSHX #### [facility] [address] [place], [place] [phone] Chief Of Safety And Protection: Sy Rojas MD #### GAMALIEL, VD25 #### [place] [address] [place], [place] 5028008 Chief Of Safety And Protection: Oh Jean MD Glucose [Mass/Vol] 93 mg/dL Normal 70-99 [facility] Comment on above: Performed By: #### Z FAST, CDP, CP, MG, TSHX #### [facility] [address] [place], [place] 4335190 Chief Of Safety And Protection: Sy Rojas MD #### GAMALIEL, VD25 #### [address] [phone] Chief Of Safety And Protection: Oh Jean MD Potassium [Moles/Vol] 5.5 mmol/L High 3.7-5.[address] [facility] Comment on above: Performed By: #### Z FAST, CDP, CP, MG, TSHX #### [facility] [address] [place], [place] [id number] Chief Of Safety And Protection: Sy Rojas MD #### GAMALIEL, VD25 #### [address] [phone] Chief Of Safety And Protection: Oh Jean MD Protein [Mass/Vol] 6.8 g/dL Normal 6.4-8.3 [facility] Comment on above: Performed By: #### Anna FAST, CDP, CP, MG, TSHX #### [facility] [address] [place] [address] Chief Of Safety And Protection: Sy Rojas MD #### GAMALIEL VD25 #### [address] [phone] Chief Of Safety And Protection: Oh Jean MD Sodium [Moles/Vol] 140 mmol/L Normal 135-144 [facility] Comment on above: Performed By: #### Anna FAST, CDP, CP, MG, TSHX #### [facility] [address] [place] [address] Chief Of Safety And Protection: Sy Rojas MD #### GAMALIEL, VD25 #### [address] [phone] Chief Of Safety And Protection: Oh Jean MD Urea nitrogen [Mass/Vol] 41 mg/dL High 8-23 [facility] Comment on above: Performed By: #### Anna FAST, CDP, CP, MG, TSHX #### [facility] [address] [place] [address] Chief Of Safety And Protection: Sy Rojas MD #### LIPR, VD25 #### [facility] [address] [place] [address] Chief Of Safety And Protection: Oh Jean MD Hemoglobin A1Con 02-20-2023 Glucose [Mass/Vol] 160 mg/dL Normal [facility] Comment on above: Result Comment: The ADA and AACC recommend providing the estimated average glucose result to permit better patient understanding of their HBA1c result. Performed By: #### G LYHGB, LIPR #### [address] [address] Chief Of Safety And Protection: Oh Jean MD #### BRYCEAST, CP #### [facility] [address] [place] [address] Chief Of Safety And Protection: Sy Rojas MD HbA1c (Bld) [Mass fraction] 7.2 % High 4.0-6.0 [facility] Comment on above: Performed By: #### G LYHGB, LIPR #### [address] [address] Chief Of Safety And Protection: Oh Jean MD #### ZFAST, CP #### [facility] [address] [place], [place] [phone] Chief Of Safety And Protection: Sy Rojas MD Lipid Profileon 02-20-2023 Cholesterol [Mass/Vol] 64 mg/dL Normal <200 [facility] Comment on above: Result Comment: Cholesterol Guidelines: <200 Desirable 200-240 Borderline >240 Undesirable Performed By: #### G LYHGB, LIPR #### [facility] [address] [place] [address] Chief Of Safety And Protection: Oh Jean MD #### ZFAST, CP #### [facility] [address] [place], [place] [id number] Chief Of Safety And Protection: Sy Rojas MD Cholesterol in HDL [Mass/Vol] 26 mg/dL Low >40 [facility] Comment on above: Result Comment: HDL Guidelines: <40 Undesirable 40-59 Borderline >59 Desirable Performed By: #### G LYHGB, LIPR #### [address] [address] Chief Of Safety And Protection: Oh Jean MD #### EVER, CP #### [facility] [address] [place], [place] [id number] Chief Of Safety And Protection: Sy Rojas MD Cholesterol in LDL [Mass/Vol] 23 mg/dL Normal 0-130 [facility] Comment on above: Result Comment: LDL Guidelines: <100 Desirable 100-129 Near to/above Desirable 130-159 Borderline >159 Undesirable Direct (measured) LDL and calculated LDL are not interchangeable tests. Performed By: #### G CALIHGReina, LIPR #### [address] [address] Chief Of Safety And Protection: Oh Jean MD #### EVER, CP #### [facility] [address] [place], [place] [phone] Chief Of Safety And Protection: Sy Rojas MD Cholesterol.total/Cho lesterol in HDL [Mass ratio] 2.5 {ratio} Normal <5 [facility] Comment on above: Performed By: #### Armin LYHGB, LIPR #### [address] [address] Chief Of Safety And Protection: Oh Jean MD #### EVER, CP #### [facility] [address] [place], [place] [phone] Chief Of Safety And Protection: Sy Rojas MD Triglyceride [Mass/Vol] 73 mg/dL Normal <150 [facility] Comment on above: Result Comment: Triglyceride Guidelines: <150 Desirable 150-199 Borderline 200-499 High >499 Very high Based on AHA Guidelines for fasting triglyceride, May 2012. Performed By: #### G LYHGB, LIPR #### [address] [place] [address] Chief Of Safety And Protection: Oh Jean MD #### BRYCEAST, CP #### [facility] [address] [place] [address] Chief Of Safety And Protection: Sy Rojas MD Cholesterol [Mass/Vol] 62 mg/dL Normal <200 [facility] Comment on above: Result Comment: Cholesterol Guidelines: <200 Desirable 200-240 Borderline >240 Undesirable Performed By: #### G LYHGB, LIPR #### [address] [address] Chief Of Safety And Protection: Oh Jean MD #### BRYCEAST, CP #### [facility] [address] [place] [address] Chief Of Safety And Protection: Sy Rojas MD Cholesterol in HDL [Mass/Vol] 26 mg/dL Low >40 [facility] Comment on above: Result Comment: HDL Guidelines: <40 Undesirable 40-59 Borderline >59 Desirable Performed By: #### G LYHGB, LIPR #### [address] [address] Chief Of Safety And Protection: Oh Jean MD #### BRYCEAST, CP #### [facility] [address] [place] [address] Chief Of Safety And Protection: Sy Rojas MD Cholesterol in LDL [Mass/Vol] 22 mg/dL Normal 0-130 [facility] Comment on above: Result Comment: LDL Guidelines: <100 Desirable 100-129 Near to/above Desirable 130-159 Borderline >159 Undesirable Direct (measured) LDL and calculated LDL are not interchangeable tests. Performed By: #### G LYHGB, LIPR #### [address] [address] Chief Of Safety And Protection: Oh Jean MD #### ZFAST, CP #### [facility] [address] [place], [place] [id number] Chief Of Safety And Protection: Sy Rojas MD Cholesterol.total/Cho lesterol in HDL [Mass ratio] 2.4 {ratio} Normal <5 [facility] Comment on above: Performed By: #### G LYHGB, LIPR #### [id number] [place] [address] Chief Of Safety And Protection: Oh Jean MD #### ZFAST, CP #### [facility] [address] [place] [address] Chief Of Safety And Protection: Sy Rojas MD Triglyceride [Mass/Vol] 72 mg/dL Normal <150 [facility] Comment on above: Result Comment: Triglyceride Guidelines: <150 Desirable 150-199 Borderline 200-499 High >499 Very high Based on AHA Guidelines for fasting triglyceride, May 2012. Performed By: #### G LYHGB, LIPR #### [address] [address] Chief Of Safety And Protection: Oh Jean MD #### ZFAST, CP #### [facility] [address] [place] [address] Chief Of Safety And Protection: Sy Rojas MD Magnesiumon 0 Magnesium [Mass/Vol] 1.9 mg/dL Normal 1.6-2.6 [facility] Comment on above: Performed By: #### Z FAST, CDP, CP, MG, TSHX #### [facility] [address] [place] [address] Chief Of Safety And Protection: Sy Rojas MD #### LIPR, VD25 #### [address] [address] Chief Of Safety And Protection: Oh Jean MD Patient fasting?on 3 Patient fasting? yes Normal [facility] Comment on above: Performed By: #### G LYHGB, LIPR #### [facility] [address] [place] [address] Chief Of Safety And Protection: Oh Jean MD #### ZFAST, CP #### [facility] [address] [place], [place] [id number] Chief Of Safety And Protection: Sy Rojas MD Patient fasting? yes Normal [facility] Comment on above: Performed By: #### Z FAST, CDP, CP, MG, TSHX #### [facility] [address] [place], [place] [id number] Chief Of Safety And Protection: Sy Rojas MD #### LIPR, VD25 #### [address] [id number] Chief Of Safety And Protection: Oh Jean MD TSH w/reflex to FT4on 2022 Thyroid Stim. Horm. 2.99 uIU/mL Normal 0.30-5.00 [facility] Comment on above: Performed By: #### Z FAST, CDP, CP, MG, TSHX #### [facility] [address] [place], [place] [id number] Chief Of Safety And Protection: Sy Rojas MD #### LIPR, VD25 #### [address] [id number] Chief Of Safety And Protection: Oh Jean MD Vitamin D 25 OHon 02-20-2023 Vitamin D 25 OH 54.9 ng/mL Normal >29.9 [facility] Comment on above: Result Comment: Reference Range: Vitamin D status Range Deficiency <20 ng/mL Mild Deficiency 20-30 ng/mL Sufficiency 30-100 ng/mL Toxicity >100 ng/mL Performed By: #### G LYHGB, LIPR #### [address] [address] Chief Of Safety And Protection: Oh Jean MD #### ZFAST, CP #### [facility] [address] [place], [place] [id number] Chief Of Safety And Protection: Sy Rojas MD XR CHEST (2 VW)on 02-20-2023 Radiology Study observation (narrative) [facility] Protime-INRon 01-04-2023 INR Coag (Bld) [Relative time] 3.1 {INR} [facility] [employer] Work Phone: [facility] [employer] Work Phone: CBC AUTO DIFFon 12-29-2022 BASO # 0.0 103/ul Normal 0.0-0.1 [facility] Comment on above: Performed By: #### C BC #### [facility] [address] [address] [address] Bertha Oden Basophils/100 WBC (Bld) 0.5 % Normal 0.2-2.0 [facility] Comment on above: Performed By: #### C BC #### [facility] [address] [place] [address] Dr. Bertha Oden EO # 0.1 103/ul Normal 0.0-0.7 [facility] Comment on above: Performed By: #### C BC #### [facility] [address] [address] [address] Bertha Oden Eosinophils/100 WBC (Bld) 1.0 % Normal 0.9-7.0 [facility] Comment on above: Performed By: #### C BC #### [facility] [address] [place] [address] Dr. Bertha Oden Erythrocyte distribution width (RBC) [Ratio] 18.2 % Critically high 11.0-15.0 [facility] Comment on above: Performed By: #### C BC #### [facility] [address] [place] [address] Dr. Bertha Oden Hematocrit (Bld) [Volume fraction] 40.8 % Critically low 42.0-54.0 [facility] Comment on above: Performed By: #### C BC #### [facility] [address] [place] [address] Dr. Bertha Oden Hemoglobin (Bld) [Mass/Vol] 12.5 g/dL Critically low 14.0-18.0 [facility] Comment on above: Performed By: #### C BC #### [facility] [address] [address] [address] Bertha Oden IG # 0.03 10e3/ul Normal 0.00-0.03 [facility] Comment on above: Performed By: #### C BC #### [facility] [address] [address] [address] Bertha Oden IG % 0.3 % Normal 0.0-0.5 [facility] Comment on above: Performed By: #### C BC #### [facility] [address] [place] [address] Dr. Bertha Oden LYMPH # 0.9 103/ul Critically low 1.2-3.8 [facility] Comment on above: Performed By: #### C BC #### [facility] [address] [place] [address] Dr. Bertha Oden Lymphocytes/100 WBC (Bld) 10.6 % Critically low 20.5-60.0 [facility] Comment on above: Performed By: #### C BC #### [facility] [address] [place] [address] Dr. Bertha Oden MANUAL DIFF REQ NO Normal [facility] Comment on above: Performed By: #### C BC #### [facility] [address] [place] [address] Dr. Bertha Oden MCH (RBC) [Entitic mass] 25.8 pg Critically low 25.9-34.0 [facility] Comment on above: Performed By: #### C BC #### [facility] [address] [place] [address] Dr. Bertha Oden MCHC (RBC) [Mass/Vol] 30.6 g/dL Normal 29.9-35.2 [facility] Comment on above: Performed By: #### C BC #### [facility] [address] [place] [address] Dr. Bertha Oden MCV (RBC) [Entitic vol] 84.3 fL Normal 80.0-94.0 [facility] Comment on above: Performed By: #### C BC #### [facility] [address] [address] [address] Bertha Oden MONO # 0.8 103/ul Normal 0.3-0.8 [facility] Comment on above: Performed By: #### C BC #### [facility] [address] [place] [address] Dr. Bertha Oden Monocytes/100 WBC (Bld) 9.5 % Normal 1.7-12.0 [facility] Comment on above: Performed By: #### C BC #### [facility] [address] [place] [address] Dr. Bertha Oden NEUT # 6.8 103/ul Critically high 1.4-6.5 [facility] Comment on above: Performed By: #### C BC #### [facility] [address] [place] [address] Dr. Bertha Oden Neutrophils/100 WBC (Bld) 78.1 % Critically high 43.0-75.0 [facility] Comment on above: Performed By: #### C BC #### [facility] [address] [place] [address] Dr. Bertha Oden Platelet mean volume (Bld) [Entitic vol] 9.5 fL Normal 9.5-13.5 [facility] Comment on above: Performed By: #### C BC #### [facility] [address] [place] [address] Dr. Bertha Oden PLT 285 103/ul Normal 150-450 [facility] Comment on above: Performed By: #### C BC #### [facility] [address] [place] [address] Dr. Bertha Oden RBC 4.84 106/ul Normal 4.70-6.10 [facility] Comment on above: Performed By: #### C BC #### [facility] [address] [place] [address] Dr. Bertha Oden WBC 8.7 103/ul Normal 4.0-11.0 [facility] Comment on above: Performed By: #### C BC #### [facility] [address] [place] [address] Dr. Bertha Oden CRPon 12-29-2022 CRP 2.9 mg/dL Critically high <=1.0 [facility] Comment on above: Performed By: #### B MP, URIC, CRP #### [facility] [address] [address] [address] Bertha Oden PROF CHEM 8 (BAS METB)on Anion gap [Moles/Vol] 15.0 mmol/L Normal Th [facility] Comment on above: Performed By: #### B MP, URIC, CRP #### [facility] [address] [place] [address] Dr. Bertha Oden Calcium [Mass/Vol] 9.3 mg/dL Normal 8.5-10.1 [facility] Comment on above: Performed By: #### B MP, URIC, CRP #### [facility] [address] [place] [address] Dr. Bertha Oden Chloride [Moles/Vol] 102 mmol/L Normal 98-107 [facility] Comment on above: Performed By: #### B MP, URIC, CRP #### [facility] [address] [address] [address] Bertha Oden CO2 [Moles/Vol] 26.6 mmol/L Normal 21.0-32.0 [facility] Comment on above: Performed By: #### B MP, URIC, CRP #### [facility] [address] [place] [address] Dr. Bertha Oden Creatinine [Mass/Vol] 1.99 mg/dL Critically high 0.70-1.30 [facility] Comment on above: Performed By: #### B MP, URIC, CRP #### [facility] [address] [address] [address] Bertha Oden EGFR-AF TRISTANIAN 41 mL/min/1.73m2 Critically low >=60 [facility] Comment on above: Performed By: #### B MP, URIC, CRP #### [facility] [address] [address] [address] Bertha Odne EGFR-NON AF TRISTANIAN 34 mL/min/1.73m2 Critically low >=60 [facility] Comment on above: Performed By: #### B MP, URIC, CRP #### [facility] [address] [address] [address] Bertha Oden Glucose [Mass/Vol] 183 mg/dL Critically high 74-106 [facility] Comment on above: Performed By: #### B MP, URIC, CRP #### [facility] [address] [place] [address] Dr. Bertha Oden Potassium [Moles/Vol] 4.6 mmol/L Normal 3.5-5.1 [facility] Comment on above: Performed By: #### B MP, URIC, CRP #### [facility] [address] [place] [address] Dr. Bertha Oden Sodium [Moles/Vol] 139 mmol/L Normal 136-145 [facility] Comment on above: Performed By: #### B MP, URIC, CRP #### [facility] [address] [place] [address] Dr. Bertha Oden Urea nitrogen [Mass/Vol] 45.0 mg/dL Critically high 7.0-18.0 [facility] Comment on above: Performed By: #### B MP, URIC, CRP #### [facility] [address] [place] [address] Dr. Bertha Oden Urea nitrogen/Creatinine [Mass ratio] 22.6 mg/mg Normal [facility] Comment on above: Performed By: #### B MP, URIC, CRP #### [facility] [address] [place] [address] Dr. Bertha Oden SED RATE WESTERGRENon 2022 SED RATE 36 mm/hr Critically high <=20 [facility] Comment on above: Performed By: #### S EDR #### [facility] [address] [place] [address] Dr. Bertha Oden URIC ACID SERUMon 12-29-2022 Urate [Mass/Vol] 9.3 mg/dL Critically high 3.5-7.2 [facility] Comment on above: Performed By: #### B MP, URIC, CRP #### [facility] [address] [place], [place] [id number] Dr. Bertha Oden XR HAND LT MIN [...] left hand. Vascular calcification. Electronically authenticated by: LINOEL NICHOLS Date: 2022-12-29 21:02 Normal [facility] Protime-INRon 11-23-2022 INR Coag (Bld) [Relative time] 2.4 {INR} [employer] Work Phone: [employer] Work Phone: Protime-INRon 10-26-2022 INR Coag (Bld) [Relative time] 3.1 {INR} [employer] Work Phone: [employer] Work Phone: Protime-INRon 09-21-2022 INR Coag (Bld) [Relative time] 2.3 {INR} [employer] Work Phone: [employer] Work Phone: US DOPPLER CAROTIDon 023 US DOPPLER CAROTID Patient Info Name: BARAK FOSTER Age: 66 years : 1955 Gender: Male Exam Date: 08/26/2022 2:32 PM Patient Status: Outpatient Office Spec: Gaby Adkins, EVA, RVT Referring Physician: Shahab Buckley MD, [facility]; Indications I65.21 - Occlusion and stenosis of right carotid artery Procedure Description 19715 Duplex examination using B-mode, color and spectral [...] Stent(s) Measurements Name Value EDV Rt Prox [place] Vessel EDV 6 cm/s Rt Stent Origin EDV 5 cm/s Rt Mid Stent EDV 16 cm/s Rt Distal Stent EDV 16 cm/s Rt Distal [place] Vessel EDV 15 cm/s Stent(s) Measurements Name Value PSV Rt Prox [place] Vessel PSV 25 cm/s Rt Stent Origin PSV 25 cm/s Rt Mid Stent PSV 43 cm/s Rt Distal Stent PSV 48 cm/s Rt Distal [place] Vessel PSV 45 cm/s Measurements Name Value [...] Hinds MD on 08/26/2022 03:46 PM Normal [facility] US DOPPLER CAROTID Patient Info Name: BARAK FOSTER Age: 66 years : 1955 Gender: Male Exam Date: 08/26/2022 2:32 PM Patient Status: Outpatient Office Spec: Gaby Adkins, EVA, T Referring Physician: Shahab Buckley MD, [facility]; Indications I65.21 - Occlusion and stenosis of right carotid artery Procedure Description 24266 Duplex examination using B-mode, color and spectral [...] Stent(s) Measurements Name Value EDV Rt Prox [place] Vessel EDV 6 cm/s Rt Stent Origin EDV 5 cm/s Rt Mid Stent EDV 16 cm/s Rt Distal Stent EDV 16 cm/s Rt Distal [place] Vessel EDV 15 cm/s Stent(s) Measurements Name Value PSV Rt Prox [place] Vessel PSV 25 cm/s Rt Stent Origin PSV 25 cm/s Rt Mid Stent PSV 43 cm/s Rt Distal Stent PSV 48 cm/s Rt Distal [place] Vessel PSV 45 cm/s Measurements Name Value [...] MonAug 26, 2022 3:48:49 PM EST Normal [facility] Protime-INRon 08-24-2022 INR Coag (Bld) [Relative time] 3.2 {INR} [email or web address] [email or web address] Work Phone: [facility] Work Phone: Protime-INRon 07-27-2022 INR Coag (Bld) [Relative time] 3.9 {INR} [facility] [employer] Work Phone: [employer] [employer] Work Phone: Protime-INRon 06-01-2022 INR Coag (Bld) [Relative time] 4.2 {INR} [employer] Work Phone: [employer] Work Phone: Protime-INRon 04-27-2022 INR Coag (Bld) [Relative time] 2 {INR} [facility] [employer] Work Phone: [employer] Work Phone: Protime-INRon 03-30-2022 INR Coag (Bld) [Relative time] 2.3 {INR} [facility] [employer] Work Phone: [employer] Work Phone: Protime-INRon 03-16-2022 INR Coag (Bld) [Relative time] 1.8 {INR} [facility] Work Phone: [employer] Work Phone: Protime-INRon 03-02-2022 INR Coag (Bld) [Relative time] 1.8 {INR} [employer] Work Phone: [employer] Work Phone: XR CHEST (2 VW)on 02-23-2022 Mild cardiomegaly with left AICD. No acute cardiopulmonary abnormality. [facility] RIS CONSOLIDATED EXAM: XR CHEST (2 VW ). HISTORY: I25.10. CAD. I10 hypertension. COMPARISON: 12/28/2021 chest. TECHNIQUE: PA and lateral views. FINDINGS: Heart size is mildly prominent. There is a left single lead AICD in place. Aortic arch calcification is present. Central vasculature is satisfactory. Lung arguelles are expanded without infiltration, consolidation, edema, or effusion. Osseous structures appear intact. [facility] CONSOLID[facility] Guru Ramos, - 02/23/2022 EXAM: [...] with left AICD. No acute cardiopulmonary abnormality. [employer] Work Phone: XR CHEST (2 VW)Ordered By: Beni Ramos on 02-23-2022 [employer] Work Phone: CBC Auto Differentialon 02-04 Absolute Eos # 0.20 [facility] [employer] Absolute Lymph # 1.60 [facility] [employer] Absolute Stanly # 0.80 [facility] [employer] Basophils (Bld) [#/Vol] 0.10 10*3/uL [facility] Basophils/100 WBC (Bld) 1 % 0 - 2 % [facility] Differential Type [facility] Eosinophils/100 WBC (Bld) 2 % 0 - 5 % [facility] Hematocrit (Bld) [Volume fraction] 38.3 % Low 41 - 53 % [facility] Hemoglobin (Bld) [Mass/Vol] 12.9 g/dL Low 13.5 - 17.5 g/dL [facility] Interpretation and review of laboratory results Abnormal [facility] Lymphocytes/100 WBC (Bld) 18 % 13 - 44 % [facility] MCH (RBC) [Entitic mass] 29.7 pg 26 - 34 pg [facility] MCHC (RBC) [Mass/Vol] 33.5 g/dL 31 - 3 7 g/dL [facility] MCV (RBC) [Entitic vol] 88.6 fL 80 - 100 fL [facility] Monocytes/100 WBC (Bld) 10 % High 5 - 9 % [facility] Platelet distribution width (Bld) [Ratio] 17.7 % High 12.1 - 15.2 % [facility] Platelets (Bld) [#/Vol] 239 10*3/uL [facility] RBC (Bld) [#/Vol] 4.33 10*6/uL Low 4.5 - 5.9 m/uL [facility] Segmented neutrophils/100 WBC (Bld) 69 % 39 - 75 % [facility] Segs Absolute 6.10 [facility] WBC (Bld) [#/Vol] 8.7 10*3/uL [facility] Comprehensive Metabolic Pane yonis 02-22-2022 Albumin [Mass/Vol] 4.1 g/dL 3.5 - 5.2 g/dL [facility] ALP (Bld) [Catalytic activity/Vol] 66 U/L 40 - 129 U/L [facility] ALT [Catalytic activity/Vol] 18 U/L 5 - 41 U/L [facility] Anion gap [Moles/Vol] 13 mmol/L 9 - 17 mmol/L [facility] AST [Catalytic activity/Vol] 16 U/L NINF - 40 U/L [facility] Bilirubin [Mass/Vol] 1.09 mg/dL 0.3 - 1 .2 mg/dL [facility] Calcium [Mass/Vol] 10.0 mg/dL 8.6 - 10. 4 mg/dL [facility] Chloride [Moles/Vol] 101 mmol/L 98 - 10 7 mmol/L [facility] CO2 [Moles/Vol] 26 mmol/L 20 - 31 mmol/L [facility] Creatinine [Mass/Vol] 1.59 mg/dL High 0.7 - 1.2 mg/dL [facility] Free PSA/Total PSA [Mass fraction] 7.2 g/dL 6.4 - 8.3 g/dL [facility] GFR 53 mL/min Low 60 - PI NF mL/min [facility] GFR Non- 44 mL/min Low 60 - PINF mL/min [facility] GFR/1.73 sq M.predicted MDRD (S/P/Bld) [Vol rate/Area] [facility] Comment on above: Average GFR for 60-6 9 years old: 85 mL/min/1.73sq m Chronic Kidney Disease: <60 mL/min/1.73sq m Kidney failure: <15 mL/min/1.73sq m eGFR calculated using average adult body mass. Additional eGFR calculator available at: http://www.[employer]Smart Holograms/multiple_crcl_2011.htm Glucose [Mass/Vol] 97 mg/dL 70 - 99 mg/dL [facility] Interpretation and review of laboratory results Abnormal [facility] Potassium [Moles/Vol] 4.7 mmol/L 3.7 - 5.3 mmol/L [facility] Sodium [Moles/Vol] 140 mmol/L 135 - 144 mmol/L [facility] Urea nitrogen (BldV) [Mass/Vol] 32 mg/dL High 8 - 23 mg/dL [facility] Urea nitrogen/Creatinine (Bld) [Mass ratio] 20 9 - 20 [facility] Hemoglobin A1Con 02-22-2022 Glucose [Mass/Vol] 146 mg/dL [facility] [employer] Comment on above: The ADA and [facility] rec ommend providing the estimated average glucose result to permit better patient understanding of their HBA1c result. HbA1c (Bld) [Mass fraction] 6.7 % High 4 - 6 % [facility] [employer] Interpretation and review of laboratory results Abnormal [facility] Soum[facility] Glucose [Mass/Vol] 146 mg/dL [facility] Comment on above: The ADA and [facility] rec ommend providing the estimated average glucose result to permit better patient understanding of their HBA1c result. HbA1c (Bld) [Mass fraction] 6.7 % High 4 - 6 % [facility] [employer] Interpretation and review of laboratory results Abnormal [facility] [employer] Lipid Panelon 02-22-2022 Cholesterol [Mass/Vol] 128 mg/dL NINF - 200 mg/dL [facility] [employer] Comment on above: Cholesterol Guidelines: <200 Desirable 200-240 Borderline >240 Undesirable Cholesterol in HDL [Mass/Vol] 32 mg/dL Low 40 - PINF mg/dL [email or web address] Comment on above: HDL Guidelines: <40 Undesirable 40-59 Borderline >59 Desirable Cholesterol in LDL [Mass/Vol] 52 mg/dL 0 - 130 mg/dL [facility] [employer] Comment on above: LDL Guidelines: <100 Desirable 100-129 Near to/above Desirable 130-159 Borderline >159 Undesirable Direct (measured) LDL and calculated LDL are not interchangeable tests. Cholesterol.total/Cho lesterol in HDL [Mass ratio] 4 {ratio} NINF - 5 [facility] [employer] Interpretation and review of laboratory results Abnormal [facility] [employer] Triglyceride [Mass/Vol] 222 mg/dL High NINF - 150 mg/dL [facility] [employer] Comment on above: Triglyceride Guidelines: <150 Desirable 150-199 Borderline 200-499 High >499 Very high Based on AHA Guidelines for fasting triglyceride, May 2012. [facility] [employer] Magnesiumon 02-22-2022 Magnesium [Mass/Vol] 1.6 mg/dL 1.6 - 2 .6 mg/dL [facility] [employer] No Panel Informationon 02-22 [email or web address] Patient Fasting?on 2 Patient Fasting? YES [facility] [employer] Protime-INRon 02-22-2022 INR Coag (Bld) [Relative time] 1.4 {INR} [facility] Work Phone: [facility] Work Phone: TSH with Reflexon 02-22-2022 TSH Qn 2.10 m[IU]/L [facility] Vitamin D 25 Hydroxyon 02-22 Vit D, 25-Hydroxy 54.9 ng/mL 29.9 - PIN F ng/mL [facility] Comment on above: Reference Range: Vitamin D status Range Deficiency <20 ng/mL Mild Deficiency 20-30 ng/mL Sufficiency 30-100 ng/mL Toxicity >100 ng/mL [facility] XR CHEST (2 VW)on 02-22-2022 Radiology Study observation (narrative) [facility] Work Phone: US DOPPLER CAROTIDon 022 US DOPPLER CAROTID Patient Info Name: BARAK FOSTER Age: 66 years : 1955 Gender: Male Exam Date: 02/11/2022 3:23 PM Patient Status: Outpatient Office Spec: Gaby Adkins RDMS, RVT Referring Physician: MARY JANE RODRIGUEZ ; Indications I65.21 - Occlusion and stenosis of right carotid artery Procedure Description 17296 Duplex examination using B-mode, color and spectral [...] Stent(s) Measurements Name Value EDV Rt Prox [place] Vessel EDV 8 cm/s Rt Stent Origin EDV 9 cm/s Rt Mid Stent EDV 17 cm/s Rt Distal Stent EDV 15 cm/s Rt Distal [place] Vessel EDV 18 cm/s Stent(s) Measurements Name Value PSV Rt Prox [place] Vessel PSV 34 cm/s Rt Stent Origin PSV 30 cm/s Rt Mid Stent PSV 40 cm/s Rt Distal Stent PSV 45 cm/s Rt Distal [place] Vessel PSV 48 cm/s Measurements Name Value [...] Peralta MD on 02/11/2022 04:27 PM Normal [facility] US DOPPLER CAROTID Patient Info Name: BARAK FOSTER Age: 66 years : 1955 Gender: Male Exam Date: 02/11/2022 3:23 PM Patient Status: Outpatient Office Spec: Gaby Adkins RDMS, RVT Referring Physician: MARY JANE RODRIGUEZ ; Indications I65.21 - Occlusion and stenosis of right carotid artery Procedure Description 01885 Duplex examination using B-mode, color and spectral [...] Stent(s) Measurements Name Value EDV Rt Prox [place] Vessel EDV 8 cm/s Rt Stent Origin EDV 9 cm/s Rt Mid Stent EDV 17 cm/s Rt Distal Stent EDV 15 cm/s Rt Distal [place] Vessel EDV 18 cm/s Stent(s) Measurements Name Value PSV Rt Prox [place] Vessel PSV 34 cm/s Rt Stent Origin PSV 30 cm/s Rt Mid Stent PSV 40 cm/s Rt Distal Stent PSV 45 cm/s Rt Distal [place] Vessel PSV 48 cm/s Measurements Name Value [...] MonFeb 11, 2022 4:28:34 PM EDT Normal [facility] Protime-INRon 02-03-2022 INR Coag (Bld) [Relative time] 2.1 {INR} [facility] Work Phone: [facility] Work Phone: Protime-INRon 01-27-2022 INR Coag (Bld) [Relative time] 6.8 {INR} [facility] Work Phone: [facility] Work Phone: Protime-INRon 01-20-2022 INR Coag (Bld) [Relative time] 2.6 {INR} [facility] Work Phone: [facility] Work Phone: Protime-INRon 01-13-2022 INR Coag (Bld) [Relative time] 6.2 {INR} [facility] Work Phone: [facility] Work Phone: VL DUP UPPER EXTREMITY VENOU S LEFTon 01-08-2022 Radiology exam is complete. No Radiologist dictation. Please follow up with ordering provider. MHPN MHW CPA Protime-INRon 01-06-2022 INR Coag (Bld) [Relative time] 2.5 {INR} [facility] Work Phone: [facility] Work Phone: ECG 12 Leadon 12-29-2021 Atrial Rate 89 BPM [facility] P Eastman 82 degrees [facility] P-R Interval 184 ms [facility] Q-T Interval 368 ms [facility] QRS Duration 114 ms [facility] QTC Calculation (Bezet) 447 ms [facility] R Eastman -20 degrees [facility] T Eastman 58 degrees [facility] Ventricular Rate 89 BPM [facility] Sinus rhythm with occasional Premature ventricular complexes and Fusion complexes Incomplete left bundle branch block Nonspecific T wave abnormality Abnormal ECG Confirmed by Allan Jasso MD ([id number]) on 12/29/2021 1:09:48 PM [facility] ECHOCARDIOGRAM COMPLETE W CO NTRMichael 12-29-2021 ECHOCARDIOGRAM COMPLETE W CONTRAST Patient Info Name: BARAK FOSTER Age: 66 years : 1955 Gender: Male Ht: 180 cm Wt: 108 kg BSA: 2.36 m2 HR: 71 bpm BP: 117 / 77 mmHg Heart Rhythm: Sinus Rhythm Technical Quality: Technically difficult Exam Date: 12/29/2021 10:12 AM Patient Status: Inpatient Flight Communications Specialist: Sara Abraham RCDS Exam Type: ECHOCARDIOGRAM COMPLETE W CONTRAST Study Info Indications I50.20 - Unspecified systolic (congestive) heart failure Referring Physician: SNEHAL Enriquez; [id number] BMI: 33.33 kg/m2 Summary 1. Severe left [...] atrial septal defect repair. Cannot exclude residual vluu-rv-vohet shunt on color Doppler. 8. No left [...] atrial septal defect repair. Cannot exclude residual mftj-rc-uynpj shunt on color Doppler. Aortic Valve The [...] LVOT Doppler ---- (more content not included)... [facility] Comment on above: Order Comment: Systo lic heart failure Echocardiogram complete w co ntrastOrdered By: aSra Smith on 12-29-2021 Aortic valve area 2.7747 cm [facility] Work Phone: AV mean gradient 2.27541 mmHg [facility] Work Phone: AV peak gradient 4.53587 mmHg [facility] Work Phone: EF 18.3022 % [facility] Work Phone: [facility] Work Phone: Echocardiogram complete w co ntraston 12-29-2021 Patient Info Name: BARAK FOSTER Age: 66 years : 1955 Gender: Male Ht: 180 cm Wt: 108 kg BSA: 2.36 m2 HR: 71 bpm BP: 117 / 77 mmHg Heart Rhythm: Sinus Rhythm Technical Quality: Technically difficult Exam Date: 12/29/2021 10:12 AM Patient Status: Inpatient Flight Communications Specialist: Sara Abraham RCDS Exam Type: ECHOCARDIOGRAM COMPLETE W CONTRAST Study Info Indications I50.20 - Unspecified systolic (congestive) heart failure Referring Physician: SNEHAL Enriquez; [id number] BMI: 33.33 kg/m2 Summary 1. Severe left [...] atrial septal defect repair. Cannot exclude residual smyf-ak-eketh shunt on color Doppler. 8. No left [...] atrial septal defect repair. Cannot exclude residual pkxx-jc-yiipo shunt on color Doppler. Aortic Valve The [...] Date: 12/29/2021 10:12 AM Patient Status: Inpatient Flight Communications Specialist: Sara Abraham RCDS Exam Type: ECHOCARDIOGRAM COMPLETE W CONTRAST Study Info Indications I50.20 - Unspecified systolic (congestive) heart failure Referring Physician: SNEHAL Enriquez; [id number] BMI: 33.33 kg/m2 Summary 1. Severe left [...] atrial septal defect repair. Cannot exclude residual xiri-ik-yrzti shunt on color Doppler. 8. No left [...] atrial septal defect repair. Cannot exclude residual omfj-nu-wyfmh shunt on color Doppler. Aortic Valve The [...] Normal LVOT 2D (more content not included)... [facility] Radiology Study observation (narrative) [facility] Glucose (Bld) [Mass/Vol]on 0 12-29-2021 Glucose [Mass/Vol] 142 mg/dL High 65 - 99 mg/dL [facility] Interpretation and review of laboratory results Abnormal [facility] INR Coag (PPP) [Relative latrell e]on 12-29-2021 Interpretation and review of laboratory results Abnormal [facility] PT Coag (PPP) [Time] 16.0 s [place] During the induction phase of oral anticoagulation, the INR may not reflect the anticoagulation status of the patient. Therapeutic ranges for INR's are: Most clinical situations: INR 2.0-3.0 Mechanical Prosthetic Valve: INR 2.5-3.5 Critical: INR >5.0 [facility] PT/INRon 12-29-2021 INR Coag (PPP) [Relative time] 1.3 {INR} High 0.8 - 1.1 [facility] ACT Coag (Bld)on 12-28-2021 Kaolin activated time Qn (Bld) 387 seconds [facility] ANGIOGRAPHY IMAGING FOR ORon 12-28-2021 Please see OpNote in Notes tab for results. [facility] ANGIOGRAPHY IMAGING FOR OR Please see OpNote in Notes tab for results. Please see OpNote in Notes tab for results. Please see OpNote in Notes tab for results. [facility] Radiology Study observation (narrative) [facility] ANGIOGRAPHY IMAGING FOR OROr dered By: Radiologist Generic on 12-28-2021 [facility] Electrolytes panel (Bld)on 12-28-2021 Anion gap [Moles/Vol] 11 mmol/L 10 - 2 0 mmol/L [facility] Chloride [Moles/Vol] 108 mmol/L 98 - 10 8 mmol/L [facility] HCO3 [Moles/Vol] 23 mmol/L 21 - 32 mmol/L [facility] Interpretation and review of laboratory results Abnormal [facility] Potassium [Moles/Vol] 5.2 mmol/L High 3.5 - 5.1 mmol/L [facility] Sodium [Moles/Vol] 137 mmol/L 135 - 145 mmol/L [facility] Glucose (Bld) [Mass/Vol]on 12-28-2021 Glucose [Mass/Vol] 160 mg/dL High 65 - 99 mg/dL [facility] Interpretation and review of laboratory results Abnormal [facility] Glucose [Mass/Vol] 117 mg/dL High 65 - 99 mg/dL [facility] Interpretation and review of laboratory results Abnormal [facility] Glucose [Mass/Vol] 137 mg/dL High 65 - 99 mg/dL [facility] Interpretation and review of laboratory results Abnormal [facility] INR Coag (PPP) [Relative latrell e]on 12-28-2021 Interpretation and review of laboratory results Abnormal [facility] PT Coag (PPP) [Time] 15.7 s High [place] During the induction phase of oral anticoagulation, the INR may not reflect the anticoagulation status of the patient. Therapeutic ranges for INR's are: Most clinical situations: INR 2.0-3.0 Mechanical Prosthetic Valve: INR 2.5-3.5 Critical: INR >5.0 [facility] No Panel Informationon 12-28 [facility] PT/INRon 12-28-2021 INR Coag (PPP) [Relative time] 1.3 {INR} High 0.8 - 1.1 [facility] Troponin Onceon 12-28-2021 Troponin I 33 ng/L NINF - 59 ng/L [facility] Troponin I Interpretation Normal [facility] Troponin x 2 (Now and Repeat in 3 hours)on 12-28-2021 Interp Troponin I Delta Change Delta troponin requires at least 3 hours between collections. [facility] Troponin I 31 ng/L NINF - 59 ng/L [facility] XR CHEST PA/APon 12-28-2021 XR CHEST [...] on MonJanuary 03, 2022 5:01:29 PM EDT [facility] Comment on above: Order Comment: Injur y/Trauma or Illness?:Illness/Other How long have you had these symptoms (acute/chronic)?:Acute Reason for exam?:significant heart history History of cancer?:u Surgeries, chemotherapy, or radiation?:u Type of Exam?:Initial Additional signs and symptoms?: Protime-INRon 12-22-2021 INR Coag (Bld) [Relative time] 6.8 {INR} [employer] Work Phone: [facility] Phone: Protime-INRon 12-09-2021 INR Coag (Bld) [Relative time] 3.3 {INR} [employer] Work Phone: [facility] Phone: CT ANGIOGRAM NECKon 12-07-19 CT ANGIOGRAM [...] of the V4 segment right vertebral artery. [employer] Workstation ID: [id number] Dictated by: Rhonda COWART on MonDecember 08, 2021 10:11:16 AM EDT Transcribed by: EVI VELASQUEZ on MonDecember 08, 2021 10:15:15 AM EDT Finalized by: Rhonda COWART on MonDecember 08, 2021 11:57:09 AM EDT [facility] Comment on above: Order Comment: Injur y/Trauma or Illness?:Illness/Other How long have you had these symptoms (acute/chronic)?:Unknown Reason for exam?:Right carotid artery stenosis Type of Exam?:Subsequent/Follow-up Additional signs and symptoms?: Protime-INRon 11-16-2021 INR Coag (Bld) [Relative time] 1.9 {INR} [facility] Work Phone: [facility] Work Phone: VL DUP CAROTID BILATERALon 0 10-26-2021 [facility] Carotid Duplex Study Patient Name KRISTIN Date of Study 10/26/2021 BARAK Beni Date of 1955 Gender Male Age 66 year(s) Race Room Number Corporate ID [id number] # Patient Acct [id number] # MR # [id number] Flight Communications Specialist Tabitha Jhaveri Interpreting Anali Johnson Physician Referring [...] !0.49 ! ! (more content not included)... [facility] Barry Johnson Jr., MD - 10/26/2021 [facility] Carotid Duplex Study Patient Name KRISTIN Date of Study 10/26/2021 BARAK Bazan Date of 1955 Gender Male Age 66 year(s) Race Room Number Corporate ID [id number] # Patient Acct [id number] # MR # [id number] [employer] Specialist Tabitha Jhaveri Interpreting Anali Johnson Physician Referring [...] side. - Additional Measurements:ICAPSV/CCAP SV 1.32.ICAEDV/CCAEDV 2.99. [facility] Phone: Radiology Study observation (narrative) [facility] Phone: VL DUP CAROTID BILATERALOrde red By: Barry Johnson on 10-26-2021 [facility] Phone: Protime-INRon 08-10-2021 INR Coag (Bld) [Relative time] 3.2 {INR} [facility] Phone: [facility] Phone: Protime-INROrdered By: Crispin Platt on 06-07-2021 INR Coag (Bld) [Relative time] 3.1 {INR} [facility] Phone: [facility] Phone: Protime-INROrdered By: Crispin patel Provider on 04-23-2021 INR Coag (Bld) [Relative time] 2.6 {INR} [facility] Phone: [facility] Phone: Protime-INROrdered By: Crispin Platt on 03-01-2021 INR Coag (Bld) [Relative time] 2.8 {INR} [facility] Phone: [facility] Phone: CBC Auto DifferentialOrdered By: Rafa Nicole on 02-25-2021 [facility] [employer] # 0.20 [employer] Phone: [facility] Immature Granulocyte NOT REPORTED [facility] Work Phone: [facility] Lymph # 1.60 [employer] [facility] Work Phone: [facility] Stanly # 0.80 [facility] HospitalAustralian [facility] Work Phone: Basophils (Bld) [#/Vol] 0.00 10*3/uL [employer] Work Phone: Basophils/100 WBC (Bld) 1 % 0 - 2 % [facility] Work Phone: Differential Type YES [facility] Work Phone: Eosinophils/100 WBC (Bld) 2 % 0 - 5 % [employer] Work Phone: Hematocrit (Bld) [Volume fraction] 45.5 % 41 - 53 % [employer] Work Phone: Hemoglobin.gastrointe stinal spec 1 Ql (Stl) 15.2 g/dL 13.5 - 17.5 g/dL [employer] Work Phone: Immature Granulocytes NOT REPORTED 0 % [facility] Work Phone: Lymphocytes/100 WBC (Bld) 18 % 13 - 44 % [facility] Phone: MCH (RBC) [Entitic mass] 30.3 pg 26 - 34 pg [employer] Work Phone: MCHC (RBC) [Mass/Vol] 33.4 g/dL 31 - 3 7 g/dL [employer] Work Phone: MCV (RBC) [Entitic vol] 90.5 fL 80 - 100 fL [employer] Work Phone: Monocytes/100 WBC (Bld) 9 % 5 - 9 % [employer] Work Phone: NRBC Automated NOT REPORTED per 100 WBC P[facility] Work Phone: Platelet distribution width (Bld) [Ratio] 15.1 % 12.1 - 15.2 % [employer] Work Phone: Platelet Estimate NOT REPORTED [employer] Work Phone: Platelet mean volume (Bld) [Entitic vol] NOT REPORTED 6.0 - 12.0 fL [employer] Work Phone: Platelets (Bld) [#/Vol] 210 10*3/uL [employer] Work Phone: RBC (Bld) [#/Vol] 5.02 10*6/uL 4.5 - 5.9 m/uL [employer] Work Phone: RBC (Bld) [#/Vol] NOT REPORTED [facility] Phone: Segmented neutrophils/100 WBC (Bld) 70 % 39 - 75 % [employer] Work Phone: Segs Absolute 6.50 [facility] Work Phone: WBC (Bld) [#/Vol] 9.2 10*3/uL [employer] Work Phone: WBC (Bld) [#/Vol] NOT REPORTED [facility] Phone: [employer] Work Phone: Comprehensive Metabolic Pane lOrdered By: Rafa Nicole on 02-25-2021 Albumin [Mass/Vol] 4 g/dL 3.5 - 5.2 g/dL [facility] Phone: Albumin/Globulin Ratio NOT REPORTED [employer] Work Phone: ALP (Bld) [Catalytic activity/Vol] 60 U/L 40 - 129 U/L [employer] Work Phone: ALT [Catalytic activity/Vol] 19 U/L 5 - 41 U/L [employer] Work Phone: Anion gap [Moles/Vol] 9 mmol/L 9 - 17 mmol/L [employer] Phone: AST [Catalytic activity/Vol] 18 U/L <40 [facility] Phone: Bilirubin [Mass/Vol] 1.55 mg/dL High 0.30 - 1.20 mg/dL [facility] Phone: Calcium [Mass/Vol] 9.6 mg/dL 8.6 - 10. 4 mg/dL [facility] Phone: Chloride [Moles/Vol] 102 mmol/L 98 - 10 7 mmol/L [facility] Phone: CO2 [Moles/Vol] 28 mmol/L 20 - 31 mmol/L [facility] Phone: Creatinine [Mass/Vol] 1.61 mg/dL High 0.70 - 1.20 mg/dL [facility] Phone: Free PSA/Total PSA [Mass fraction] 7.3 g/dL 6.4 - 8.3 g/dL [facility] Phone: GFR 53 mL/min Low >60 [facility] Phone: GFR Non- 44 mL/min Low >60 [facility] Phone: GFR/1.73 sq M.predicted MDRD (S/P/Bld) [Vol rate/Area] [facility] Phone: Comment on above: Average GFR for 60-6 9 years old: 85 mL/min/1.73sq m Chronic Kidney Disease: <60 mL/min/1.73sq m Kidney failure: <15 mL/min/1.73sq m eGFR calculated using average adult body mass. Additional eGFR calculator available at: http://www.[employer]Smart Holograms/multiple_crcl_2012.htm GFR/1.73 sq M.predicted MDRD (S/P/Bld) [Vol rate/Area] NOT REPORTED [facility] Phone: Glucose [Mass/Vol] 88 mg/dL 70 - 99 mg/dL [facility] Phone: Interpretation and review of laboratory results Abnormal [facility] Phone: Potassium [Moles/Vol] 4.5 mmol/L 3.7 - 5.3 mmol/L [facility] Phone: Sodium [Moles/Vol] 139 mmol/L 135 - 144 mmol/L [facility] Phone: Urea nitrogen (BldV) [Mass/Vol] 26 mg/dL High 8 - 23 mg/dL [facility] Phone: Urea nitrogen/Creatinine (Bld) [Mass ratio] 16 [facility] Phone: Hemoglobin [id number] By: Dimas Cerda on 02-25-2021 Glucose [Mass/Vol] 143 mg/dL [facility] Phone: Comment on above: The ADA and AACC rec ommend providing the estimated average glucose result to permit better patient understanding of their HBA1c result. HbA1c (Bld) [Mass fraction] 6.6 % High 4.0 - 6.0 % [facility] Phone: Interpretation and review of laboratory results Abnormal [facility] Phone: [facility] Phone: Lipid PanelOrdered By: Rafa Nicole on 02-25-2021 Cholesterol [Mass/Vol] 137 mg/dL <200 [facility] Phone: Comment on above: Cholesterol Guidelines: <200 Desirable 200-240 Borderline >240 Undesirable Cholesterol in HDL [Mass/Vol] 32 mg/dL Low >40 [facility] Phone: Comment on above: HDL Guidelines: <40 Undesirable 40-59 Borderline >59 Desirable Cholesterol in LDL [Mass/Vol] 72 mg/dL 0 - 130 mg/dL [facility] Phone: Comment on above: LDL Guidelines: <100 Desirable 100-129 Near to/above Desirable 130-159 Borderline >159 Undesirable Direct (measured) LDL and calculated LDL are not interchangeable tests. Cholesterol in VLDL [Mass/Vol] NOT REPORTED High 1 - 30 mg/dL [facility] Phone: Cholesterol.total/Cho lesterol in HDL [Mass ratio] 4.3 {ratio} <5 [facility] Phone: Interpretation and review of laboratory results Abnormal [facility] Phone: Triglyceride [Mass/Vol] 164 mg/dL High <150 [facility] Phone: Comment on above: Triglyceride Guidelines: <150 Desirable 150-199 Borderline 200-499 High >499 Very high Based on AHA Guidelines for fasting triglyceride, May 2012. [facility] Phone: MagnesiumOrdered By: Rafa villafana on 02-25-2021 Magnesium [Mass/Vol] 1.9 mg/dL 1.6 - 2 .6 mg/dL [facility] Phone: No Panel InformationOrdered By: Rafa Nicole on 02-25-2021 [facility] Phone: Patient Fasting?Ordered By: Rafa Nicole on 02-25-2021 Patient Fasting? yes [employer] Work Phone: [facility] Phone: TSH with ReflexOrdered By: Armin Nicole on 02-25-2021 TSH Qn 2.72 m[IU]/L [facility] Phone: Vitamin D 25 HydroxyOrdered By: Rafa Nicole on 02-25-2021 Vit D, 25-Hydroxy 56.4 ng/mL 30.0 - 100.0 ng/mL [facility] Phone: Comment on above: Reference Range: Vitamin D status Range Deficiency <20 ng/mL Mild Deficiency 20-30 ng/mL Sufficiency 30-100 ng/mL Toxicity >100 ng/mL [facility] Phone: Protime-INROrdered By: Crispin patel Provider on 12-29-2020 INR Coag (Bld) [Relative time] 3.8 {INR} [facility] Phone: [facility] Phone: Creatinine W/GFR Point of Ca reOrdered By: Ayde Matthews on 11-23-2020 Creatinine [Mass/Vol] 1.61 mg/dL High 0.51 - 1.19 mg/dL [facility] Phone: GFR Non- 43 mL/min Low >60 [facility] Phone: GFR/1.73 sq M.predicted MDRD (S/P/Bld) [Vol rate/Area] 53 mL/min/{1.73_m2} Low >60 [facility] Phone: GFR/1.73 sq M.predicted MDRD (S/P/Bld) [Vol rate/Area] [facility] Phone: Comment on above: Average GFR for 60-6 9 years old: 85 mL/min/1.73sq m Chronic Kidney Disease: <60 mL/min/1.73sq m Kidney failure: <15 mL/min/1.73sq m eGFR calculated using average adult body mass. Additional eGFR calculator available at: http://www.[employer]Smart Holograms/multiple_crcl_2012.htm Interpretation and review of laboratory results Abnormal [facility] Phone: POC Glucose FingerstickOrder ed By: Ayde Matthews on 11-23-2020 Glucose [Mass/Vol] 116 mg/dL High 75 - 110 mg/dL [facility] Phone: Interpretation and review of laboratory results Abnormal [facility] Phone: POCT GlucoseOrdered By: Rafa Matthews on 11-23-2020 Glucose [Mass/Vol] 94 mg/dL 74 - 100 mg/dL [facility] Phone: POCT INROrdered By: Ayde Matthews on 11-23-2020 POC INR 1.1 [facility] Phone: Comment on above: Therapeutic Range: Moderate Anticoagulant Intensity: INR = 2.0-3.0 High Anticoagulant Intensity: INR = 2.5-3.5 PT Coag (PPP) [Time] 13.3 s [facility] Phone: POTASSIUM (POC)Ordered By: Armin Matthews on 11-23-2020 Potassium [Moles/Vol] 4.5 mmol/L 3.5 - 4.5 mmol/L [facility] Phone: Surgical Pathologyon 021 Surgical Pathology (NOTE) -- Diagnosis -- GALLBLADDER, CHOLECYSTECTOMY:- CHRONIC CHOLECYSTITIS.- CHOLELITHIASIS. Allan Hurst, Electronically Signed [facility]/11/24/2020 Clinical Information Pre-op Diagnosis: GALLSTONES Operative Findings: GALLBLADDER AND CONTENTS Operation Performed: LAPAROSCOPIC CHOLECYSTECTOMY Source of Specimen 1: GALLBLADDER AND CONTENTS Gross Description BARAK ABURTOKRISTIN, GALLBLADDER AND CONTENTS 9.2 x 4.3 x [...] SURGICAL PATHOLOGY CONSULTATION Patient Name: BARAK FOSTER [facility] Rec: [id number] Path Number: [id number] [facility] ANATOMIC PATHOLOGY [address] [place] [id number] [facility] Comment on above: Performed By: #### P PPVS #### [employer] [address] [place] [id number] Chief Of Safety And Protection: Oh Jean MD Protime-INRon 11-17-2020 INR Coag (Bld) [Relative time] 2.9 {INR} [facility] Phone: EKG 12 Leadon 11-10-2020 Atrial Rate 69 BPM [employer] Work Phone: P Eastman 51 degrees [employer] Work Phone: P-R Interval 200 ms [facility] Phone: Q-T Interval 448 ms [facility] Phone: QRS Duration 134 ms [employer] Work Phone: QTc Calculation (Bazett) 480 ms [facility] Phone: R Eastman -41 degrees [facility] Phone: T Eastman 113 degrees [facility] Phone: Ventricular Rate 69 BPM [employer] Work Phone: Andrés, Mhpn Incoming E kg Results From [facility] - 11/10/2020 2:08 PM EDT Sinus rhythm with frequent , and consecutive Premature ventricular complexes Left axis deviation Non-specific intra-ventricular conduction block T wave abnormality, consider lateral ischemia Abnormal ECG No previous ECGs available [facility] Phone: Sinus rhythm with frequent , and consecutive Premature ventricular complexes Left axis deviation Non-specific intra-ventricular conduction block T wave abnormality, consider lateral ischemia Abnormal ECG No previous ECGs available [facility] Phone: Basic Metabolic Panelon 04-0 Anion gap [Moles/Vol] 11 mmol/L 9 - 17 mmol/L [facility] Phone: Calcium [Mass/Vol] 9.9 mg/dL 8.6 - 10. 4 mg/dL [facility] Phone: Chloride [Moles/Vol] 102 mmol/L 98 - 10 7 mmol/L [facility] Phone: CO2 [Moles/Vol] 24 mmol/L 20 - 31 mmol/L [facility] Phone: Creatinine [Mass/Vol] 1.71 mg/dL High 0.70 - 1.20 mg/dL [facility] Phone: GFR 49 mL/min Low >60 [facility] Phone: GFR Non- 41 mL/min Low >60 [facility] Phone: GFR/1.73 sq M.predicted MDRD (S/P/Bld) [Vol rate/Area] NOT REPORTED [facility] Phone: GFR/1.73 sq M.predicted MDRD (S/P/Bld) [Vol rate/Area] [facility] Phone: Comment on above: Average GFR for 60-6 9 years old: 85 mL/min/1.73sq m Chronic Kidney Disease: <60 mL/min/1.73sq m Kidney failure: <15 mL/min/1.73sq m eGFR calculated using average adult body mass. Additional eGFR calculator available at: http://www.[employer]/multiple_crcl_2012.htm Glucose [Mass/Vol] 133 mg/dL High 70 - 99 mg/dL [facility] Phone: Interpretation and review of laboratory results Abnormal [facility] Phone: Potassium [Moles/Vol] 4.8 mmol/L 3.7 - 5.3 mmol/L [facility] Phone: Sodium [Moles/Vol] 137 mmol/L 135 - 144 mmol/L [facility] Phone: Urea nitrogen (BldV) [Mass/Vol] 37 mg/dL High 8 - 23 mg/dL [facility] Phone: Urea nitrogen/Creatinine (Bld) [Mass ratio] NOT REPORTED [facility] Phone: Basic Metabolic Profon 11-09 (cont.) Normal [facility] Comment on above: Result Comment: Aver age GFR for 60-69 years old: 85 mL/min/1.73sq m Chronic Kidney Disease: <60 mL/min/1.73sq m Kidney failure: <15 mL/min/1.73sq m eGFR calculated using average adult body mass. Additional eGFR calculator available at: http://www.[employer]Smart Holograms/multiple_crcl_2011.htm Performed By: #### C KWASI, PT, BMP #### [facility] [address] [place] [phone] Chief Of Safety And Protection: Oh Jean MD Anion gap [Moles/Vol] 11 mmol/L Normal 9-17 [facility] Comment on above: Performed By: #### C KWASI PT, BMP #### [facility] [address] [place] [id number] Chief Of Safety And Protection: Oh Jean MD Calcium [Mass/Vol] 9.9 mg/dL Normal 8.6-10.4 [facility] Comment on above: Performed By: #### C KWASI PT, BMP #### [facility] [address] [place] [phone] Chief Of Safety And Protection: Oh Jean MD Chloride [Moles/Vol] 102 mmol/L Normal 98-107 [facility] Comment on above: Performed By: #### C KWASI PT, BMP #### [employer] [address] [place] [phone] Chief Of Safety And Protection: Oh Jean MD CO2 [Moles/Vol] 24 mmol/L Normal 20-31 [facility] Comment on above: Performed By: #### C KWASI PT, BMP #### [facility] [address] [place] [phone] Chief Of Safety And Protection: Oh Jean MD Creatinine [Mass/Vol] 1.71 mg/dL High 0.70-1.20 [facility] Comment on above: Performed By: #### C BC, PT, BMP #### [facility] [address] [place] [phone] Chief Of Safety And Protection: Oh Jean MD GFR, Amer 49 mL/min Low >60 [facility] Comment on above: Performed By: #### C BC, PT, BMP #### [facility] [address] [place] [phone] Chief Of Safety And Protection: Oh Jean MD GFR,non Amer 41 mL/min Low >60 [facility] Comment on above: Performed By: #### C BC, PT, BMP #### [facility] [address] [place] [phone] Chief Of Safety And Protection: Oh Jean MD Glucose [Mass/Vol] 133 mg/dL High 70-99 [facility] Comment on above: Performed By: #### C BC, PT, BMP #### [facility] [address] [place] [id number] Chief Of Safety And Protection: Oh Jean MD Potassium [Moles/Vol] 4.8 mmol/L Normal 3.7-5.3 [facility] Comment on above: Performed By: #### C BC, PT, BMP #### [facility] [address] [place] [address] [phone] Chief Of Safety And Protection: Oh Jean MD Sodium [Moles/Vol] 137 mmol/L Normal 135-144 [facility] Comment on above: Performed By: #### C BC, PT, BMP #### [facility] [address] [place] [address] [phone] Chief Of Safety And Protection: Oh Jean MD Urea nitrogen [Mass/Vol] 37 mg/dL High 8-23 [facility] Comment on above: Performed By: #### C BC, PT, BMP #### [facility] [address] [place] [address] 28917 Chief Of Safety And Protection: Oh Jean MD BUN/CRE Ratio NOT REPORTED Normal 9-20 [facility] Comment on above: Performed By: #### C BC, PT, BMP #### [facility] [address] [place] [address] [phone] Chief Of Safety And Protection: Oh Jean MD Staging: NOT REPORTED Normal [facility] Comment on above: Performed By: #### C BC, PT, BMP #### [facility] [address] [place] [address] [phone] Chief Of Safety And Protection: Oh Jean MD CBCon 11-09-2020 Erythrocyte distribution width (RBC) [Ratio] 13.8 % Normal 11.8-14.4 [facility] Comment on above: Performed By: #### C KWASI, PT, BMP #### [facility] [address] [place] [address] 94157 Chief Of Safety And Protection: Oh Jean MD Hematocrit (Bld) [Volume fraction] 44.6 % Normal 40.7-50.3 [facility] Comment on above: Performed By: #### C KWASI, PT, BMP #### [facility] [address] [place] [address] [phone] Chief Of Safety And Protection: Oh Jean MD Hemoglobin (Bld) [Mass/Vol] 14.7 g/dL Normal 13.0-17.0 [facility] Comment on above: Performed By: #### C BC, PT, BMP #### [facility] [address] [place] [address] [phone] Chief Of Safety And Protection: Oh Jean MD MCH (RBC) [Entitic mass] 30.4 pg Normal 25.2-33.5 [facility] Comment on above: Performed By: #### C BC, PT, BMP #### [facility] [address] [place] [address] [phone] Chief Of Safety And Protection: Oh Jean MD MCHC (RBC) [Mass/Vol] 33.0 g/dL Normal 28.4-34.8 [facility] Comment on above: Performed By: #### C BC, PT, BMP #### [address] [address] Chief Of Safety And Protection: Oh Jean MD MCV (RBC) [Entitic vol] 92.3 fL Normal 82.6-102.9 [facility] Comment on above: Performed By: #### C BC, PT, BMP #### [address] [address] Chief Of Safety And Protection: Oh Jean MD NRBC Automated 0.0 per 100 WBC Normal 0.0 [facility] Comment on above: Performed By: #### C BC, PT, BMP #### [address] [address] Chief Of Safety And Protection: Oh Jean MD Platelet mean volume (Bld) [Entitic vol] 10.1 fL Normal 8.1-13.5 [facility] Comment on above: Performed By: #### C BC, PT, BMP #### [address] [address] Chief Of Safety And Protection: Oh Jean MD Platelets (Bld) [#/Vol] 252 10*3/uL Normal 138-453 [facility] Comment on above: Performed By: #### C BC, PT, BMP #### [address] [address] Chief Of Safety And Protection: Oh Jean MD RBC (Bld) [#/Vol] 4.83 10*6/uL Normal 4.21-5.77 [facility] Comment on above: Performed By: #### C BC, PT, BMP #### [address] [address] Chief Of Safety And Protection: Oh Jean MD WBC (Bld) [#/Vol] 9.0 10*3/uL Normal 3.5-11.3 [facility] Comment on above: Performed By: #### C BC, PT, BMP #### [facility] [address] [place] [address] Chief Of Safety And Protection: Oh Jean MD Hematocrit (Bld) [Volume fraction] 44.6 % 40.7 - 50.3 % [facility] Phone: Hemoglobin.gastrointe stinal spec 1 Ql (Stl) 14.7 g/dL 13.0 - 17.0 g/dL [facility] Phone: MCH (RBC) [Entitic mass] 30.4 pg 25.2 - 33.5 pg [facility] Phone: MCHC (RBC) [Mass/Vol] 33.0 g/dL 28.4 - 34.8 g/dL [facility] Phone: MCV (RBC) [Entitic vol] 92.3 fL 82.6 - 102.9 fL [facility] Phone: Platelet distribution width (Bld) [Ratio] 13.8 % 11.8 - 14.4 % [facility] Phone: Platelet mean volume (Bld) [Entitic vol] 10.1 fL 8.1 - 13.5 fL [facility] Phone: Platelets (Bld) [#/Vol] 252 10*3/uL [facility] Phone: RBC (Bld) [#/Vol] 4.83 10*6/uL 4.21 - 5.7 7 m/uL [facility] Phone: WBC (Bld) [#/Vol] 9.0 10*3/uL [facility] Phone: WBC (Bld) [#/Vol] 0.0 10*3/uL 0.0 per 10 0 WBC [facility] Phone: PTon 11-09-2020 INR Coag (PPP) [Relative time] 2.6 {INR} Normal [facility] Comment on above: Result Comment: Therapeutic Range: Moderate Anticoagulant Intensity: INR = 2.0-3.0 High Anticoagulant Intensity: INR = 2.5-3.5 Performed By: #### C BC, PT, BMP #### [facility] [address] [place], [place] [phone] Chief Of Safety And Protection: Oh Jean MD PT Coag (PPP) [Time] 25.5 s High 9.1-12.3 [facility] Comment on above: Performed By: #### C BC, PT, BMP #### [facility] [address] [place] [address] [phone] Chief Of Safety And Protection: Oh Jean MD Protime-INRon 11-09-2020 INR Coag (Bld) [Relative time] 2.6 {INR} [facility] [employer] Phone: Comment on above: Therapeutic Range: Moderate Anticoagulant Intensity: INR = 2.0-3.0 High Anticoagulant Intensity: INR = 2.5-3.5 Interpretation and review of laboratory results Abnormal [facility] Phone: PT Coag (PPP) [Time] 25.5 s High [facility] [employer] Phone: Consent for COVID Vaccineon 11-07-2020 SARS-CoV-2 (COVID-19) RNA NEFTALI+probe Ql (Unsp spec) [id number]#1.00CD: 127 Normal [facility] US GALLBLADDER RUQon 021 1. Exam [...] small amount of sludge within the gallbladder. [facility] Phone: EXAM: US GALLBLADDER RUQ HISTORY: Reason [...] was noted in the right upper quadrant. [facility] Phone: Andrés, pn Incoming Radiant Results From [employer] - 11/02/2020 9:51 AM EDT EXAM: US [...] small amount of sludge within the gallbladder. [facility] Phone: Consent for COVID Vaccineon 10-17-2020 SARS-CoV-2 (COVID-19) RNA NEFTALI+probe Ql (Unsp spec) [id number]#1.00CD :127 Normal [facility] Consent for Treatmenton 10-05 Consent for Treatment [id number]#1.00CD :127 Normal [facility] Coding Summary.on 10-14-2020 Coding Summary. CODING DATE: 021 FINAL [facility] DSC STATUS: PAYOR: [facility] [place] [employer] DESCRIPTION 1492 [employer] - Level [...] Luciana Oliva Date Saved: 10/14/2020 02:04 pm Normal [facility] CBC Auto Differentialon 08-07 Basophils (Bld) [#/Vol] 0.00 10*3/uL [place] Basophils/100 WBC (Bld) 1 % 0 - 2 % [place] Differential Type YES [place] Eosinophils (Bld) [#/Vol] 0.30 10*3/uL [place] Eosinophils/100 WBC (Bld) 3 % 0 - 5 % [place] Erythrocyte distribution width (RBC) [Ratio] 14.9 % 12.1 - 15.2 % [place] Hematocrit (Bld) [Volume fraction] 44.9 % 41 - 53 % [place] Hemoglobin (Bld) [Mass/Vol] 15.0 g/dL 13.5 - 17.5 g/dL [place] Interpretation and review of laboratory results Abnormal [place] Lymphocytes (Bld) [#/Vol] 1.70 10*3/uL [place] Lymphocytes/100 WBC (Bld) 19 % 13 - 44 % [place] MCH (RBC) [Entitic mass] 30.4 pg 26 - 34 pg [place] MCHC (RBC) [Mass/Vol] 33.4 g/dL 31 - 3 7 g/dL [place] MCV (RBC) [Entitic vol] 91.0 fL 80 - 100 fL [place] Monocytes (Bld) [#/Vol] 1.00 10*3/uL [place] Monocytes/100 WBC (Bld) 11 % High 5 - 9 % [place] Platelet mean volume (Bld) [Entitic vol] NOT REPORTED 6 - 12 fL [place] Platelets (Bld) [#/Vol] 237 10*3/uL [place] Platelets (Bld) [#/Vol] NOT REPORTED [place] RBC (Bld) [#/Vol] 4.94 10*6/uL 4.5 - 5.9 m/uL [place] RBC morphology finding Nom (Bld) NOT REPORTED [place] Segmented neutrophils/100 WBC (Bld) 66 % 39 - 75 % [place] Segs Absolute 6.00 [place] WBC (Bld) [#/Vol] 8.9 10*3/uL [place] WBC (Bld) [#/Vol] NOT REPORTED per 100 WBC [place] WBC Morphology NOT REPORTED [place] Comprehensive Metabolic Pane yonis 08-25-2020 Albumin [Mass/Vol] 4.2 g/dL 3.5 - 5.2 g/dL [place] Albumin/Globulin [Mass ratio] NOT REPORTED [place] ALP [Catalytic activity/Vol] 64 U/L 40 - 129 U/L [place] ALT [Catalytic activity/Vol] 16 U/L 5 - 41 U/L [place] Anion gap [Moles/Vol] 10 mmol/L 9 - 17 mmol/L [place] AST [Catalytic activity/Vol] 21 U/L <40 [place] Bilirubin Ql (U) 0.92 mg/dL 0.3 - 1.2 mg/dL [place] Bun/Cre Ratio 22 High [place] Calcium [Mass/Vol] 10.7 mg/dL High 8.6 - 10. 4 mg/dL [place] Chloride [Moles/Vol] 102 mmol/L 98 - 10 7 mmol/L [place] CO2 [Moles/Vol] 27 mmol/L 20 - 31 mmol/L [place] Creatinine [Mass/Vol] 1.78 mg/dL High 0.7 - 1.2 mg/dL [place] GFR 47 mL/min Low >60 [place] GFR Non- 39 mL/min Low >60 [place] GFR/1.73 sq M predicted among non-blacks MDRD (S/P/Bld) [Vol rate/Area] [place] Comment on above: Average GFR for 60-6 9 years old: 85 mL/min/1.73sq m Chronic Kidney Disease: <60 mL/min/1.73sq m Kidney failure: <15 mL/min/1.73sq m eGFR calculated using average adult body mass. Additional eGFR calculator available at: http://www.[employer]/multiple_crcl_2012.htm GFR/1.73 sq M predicted among non-blacks MDRD (S/P/Bld) [Vol rate/Area] NOT REPORTED [place] Glucose [Mass/Vol] 89 mg/dL 70 - 99 mg/dL [place] Interpretation and review of laboratory results Abnormal [place] Potassium [Moles/Vol] 5.2 mmol/L 3.7 - 5.3 mmol/L [place] Protein [Mass/Vol] 7.5 g/dL 6.4 - 8.3 g/dL [place] Sodium [Moles/Vol] 139 mmol/L 135 - 144 mmol/L [place] Urea nitrogen [Mass/Vol] 39 mg/dL High 8 - 23 mg/dL [place] Lipid Panelon 08-25-2020 Cholesterol [Mass/Vol] 126 mg/dL <200 [place] Comment on above: Cholesterol Guidelines: <200 Desirable 200-240 Borderline >240 Undesirable Cholesterol in HDL [Mass/Vol] 34 mg/dL Low >40 [place] Comment on above: HDL Guidelines: <40 Undesirable 40-59 Borderline >59 Desirable Cholesterol in LDL [Mass/Vol] 59 mg/dL 0 - 130 mg/dL [place] Comment on above: LDL Guidelines: <100 Desirable 100-129 Near to/above Desirable 130-159 Borderline >159 Undesirable Direct (measured) LDL and calculated LDL are not interchangeable tests. Cholesterol in VLDL [Mass/Vol] NOT REPORTED High 1 - 30 mg/dL [place] Cholesterol.total/Cho lesterol in HDL [Mass ratio] 3.7 {ratio} <5 [place] Interpretation and review of laboratory results Abnormal [place] Triglyceride [Mass/Vol] 166 mg/dL High <150 [place] Comment on above: Triglyceride Guidelines: <150 Desirable 150-199 Borderline 200-499 High >499 Very high Based on AHA Guidelines for fasting triglyceride, May 2012. Magnesiumon 08-25-2020 Magnesium [Mass/Vol] 2.2 mg/dL 1.6 - 2 .6 mg/dL [place] Otheron 08-25-2020 Immature granulocytes (Bld) [#/Vol] NOT REPORTED [place] Patient Fasting?on 1 Patient Fasting? yes [place] TSH with Reflexon 08-25-2020 TSH Qn 2.54 m[IU]/L [place], [place] Vitamin D 25 Hydroxyon 08-25 Vit D, 25-Hydroxy 52.3 ng/mL 30 - 100 ng/mL [place] Comment on above: Reference Range: Vitamin D status Range Deficiency <20 ng/mL Mild Deficiency 20-30 ng/mL Sufficiency 30-100 ng/mL Toxicity >100 ng/mL XR CHEST (2 VW)on 08-25-2020 Pacemaker defibrilla tor with no acute change compared to 02/26/2019, 10/19/2017. [place] EXAM: XR CHEST (2 VW ) HISTORY: Reason for exam:->htn 64-year-old male COMPARISON: 02/26/2019 chest, 10/19/2017. TECHNIQUE: 2 views chest FINDINGS: Single lead pacemaker defibrillator with the tip in the right ventricle unchanged. Heart size upper normal, stable. Lungs clear. [place] Andrés, Mhpn Incoming Radiant Results From [employer] - 08/25/2020 10:17 AM EST EXAM: XR CHEST (2 VW) HISTORY: Reason for exam:->htn 64-year-old male COMPARISON: 02/26/2019 chest, 10/19/2017. TECHNIQUE: 2 views chest FINDINGS: Single lead pacemaker defibrillator with the tip in the right ventricle unchanged. Heart size upper normal, stable. Lungs clear. IMPRESSION: Pacemaker defibrillator with no acute change compared to 02/26/2019, 10/19/2017. [place] Comprehensive Metabolic Pane yonis 08-14-2020 Albumin [Mass/Vol] 4.7 g/dL 3.5 - 5.2 g/dL [place] Albumin/Globulin [Mass ratio] NOT REPORTED [place] ALP [Catalytic activity/Vol] 61 U/L 40 - 129 U/L [place] ALT [Catalytic activity/Vol] 20 U/L 5 - 41 U/L [place] Anion gap [Moles/Vol] 11 mmol/L 9 - 17 mmol/L [place] AST [Catalytic activity/Vol] 20 U/L <40 [place] Bilirubin Ql (U) 1.55 mg/dL High 0.3 - 1.2 mg/dL [place] Bun/Cre Ratio 26 High [place] Calcium [Mass/Vol] 9.7 mg/dL 8.6 - 10. 4 mg/dL [place] Chloride [Moles/Vol] 102 mmol/L 98 - 10 7 mmol/L [place] CO2 [Moles/Vol] 25 mmol/L 20 - 31 mmol/L [place] Creatinine [Mass/Vol] 1.7 mg/dL High 0.7 - 1.2 mg/dL [place] GFR 50 mL/min Low >60 [place] GFR Non- 41 mL/min Low >60 [place] GFR/1.73 sq M predicted among non-blacks MDRD (S/P/Bld) [Vol rate/Area] [place] Comment on above: Average GFR for 60-6 9 years old: 85 mL/min/1.73sq m Chronic Kidney Disease: <60 mL/min/1.73sq m Kidney failure: <15 mL/min/1.73sq m eGFR calculated using average adult body mass. Additional eGFR calculator available at: http://www.[employer]/multiple_crcl_2012.htm GFR/1.73 sq M predicted among non-blacks MDRD (S/P/Bld) [Vol rate/Area] NOT REPORTED [place] Glucose [Mass/Vol] 97 mg/dL 70 - 99 mg/dL [place] Interpretation and review of laboratory results Abnormal [place] Potassium [Moles/Vol] 4.9 mmol/L 3.7 - 5.3 mmol/L [place] Protein [Mass/Vol] 8.1 g/dL 6.4 - 8.3 g/dL [place] Sodium [Moles/Vol] 138 mmol/L 135 - 144 mmol/L [place] Urea nitrogen [Mass/Vol] 45 mg/dL High 8 - 23 mg/dL [place] Hemoglobin A1Con 08-14-2020 Glucose [Mass/Vol] 151 mg/dL [place] Comment on above: The ADA and AACC rec ommend providing the estimated average glucose result to permit better patient understanding of their HBA1c result. HbA1c (Bld) [Mass fraction] 6.9 % High 4 - 6 % [place] Interpretation and review of laboratory results Abnormal [place] Protime-INRon 08-14-2020 INR Coag (PPP) [Relative time] 2.8 {INR} [place] Comment on above: Non-therapeutic Range: INR = 0.9-1.2 Therapeutic Range: Moderate Anticoagulant Intensity: INR = 2.0-3.0 High Anticoagulant Intensity: INR = 2.5-3.5 Interpretation and review of laboratory results Abnormal [place] PT Coag (PPP) [Time] 28.6 s High [place] Protime-INRon 05-14-2020 INR Coag (PPP) [Relative time] 2.7 {INR} [place] Protime-INRon 04-02-2020 INR Coag (PPP) [Relative time] 2.8 {INR} [place] CBC Auto Differentialon 02-05 Basophils (Bld) [#/Vol] 0.10 10*3/uL [place] Basophils/100 WBC (Bld) 1 % 0 - 2 % [place] Differential Type YES [place] Eosinophils (Bld) [#/Vol] 0.30 10*3/uL [place] Eosinophils/100 WBC (Bld) 3 % 0 - 5 % [place] Erythrocyte distribution width (RBC) [Ratio] 14.8 % 12.1 - 15.2 % [place] Hematocrit (Bld) [Volume fraction] 44.7 % 41 - 53 % [place] Hemoglobin (Bld) [Mass/Vol] 15.2 g/dL 13.5 - 17.5 g/dL [place] Interpretation and review of laboratory results Abnormal [place] Lymphocytes (Bld) [#/Vol] 1.70 10*3/uL [place] Lymphocytes/100 WBC (Bld) 17 % 13 - 44 % [place] MCH (RBC) [Entitic mass] 31.4 pg 26 - 34 pg [place] MCHC (RBC) [Mass/Vol] 34.0 g/dL 31 - 3 7 g/dL [place] MCV (RBC) [Entitic vol] 92.1 fL 80 - 100 fL [place] Monocytes (Bld) [#/Vol] 1.00 10*3/uL [place] Monocytes/100 WBC (Bld) 10 % High 5 - 9 % [place] Platelet mean volume (Bld) [Entitic vol] NOT REPORTED 6 - 12 fL [place], [place] Platelets (Bld) [#/Vol] 208 10*3/uL [place] Platelets (Bld) [#/Vol] NOT REPORTED [place] RBC (Bld) [#/Vol] 4.85 10*6/uL 4.5 - 5.9 m/uL [place] RBC morphology finding Nom (Bld) NOT REPORTED [place] Segmented neutrophils/100 WBC (Bld) 69 % 39 - 75 % [place] Segs Absolute 7.10 High [place] WBC (Bld) [#/Vol] NOT REPORTED per 100 WBC [place] WBC (Bld) [#/Vol] 10.1 10*3/uL [place] WBC Morphology NOT REPORTED [place] Comprehensive Metabolic Pane yonis 02-26-2020 Albumin [Mass/Vol] 4.3 g/dL 3.5 - 5.2 g/dL [place] Albumin/Globulin [Mass ratio] NOT REPORTED [place] ALP [Catalytic activity/Vol] 55 U/L 40 - 129 U/L [place] ALT [Catalytic activity/Vol] 21 U/L 5 - 41 U/L [place] Anion gap [Moles/Vol] 11 mmol/L 9 - 17 mmol/L [place] AST [Catalytic activity/Vol] 23 U/L <40 [place] Bilirubin Ql (U) 1.35 mg/dL High 0.3 - 1.2 mg/dL [place] Bun/Cre Ratio 19 [place] Calcium [Mass/Vol] 10.5 mg/dL High 8.6 - 10. 4 mg/dL [place] Chloride [Moles/Vol] 101 mmol/L 98 - 10 7 mmol/L [place] CO2 [Moles/Vol] 26 mmol/L 20 - 31 mmol/L [place] Creatinine [Mass/Vol] 1.67 mg/dL High 0.7 - 1.2 mg/dL [place] GFR 51 mL/min Low >60 [place] GFR Non- 42 mL/min Low >60 [place] GFR/1.73 sq M predicted among non-blacks MDRD (S/P/Bld) [Vol rate/Area] [place] Comment on above: Average GFR for 60-6 9 years old: 85 mL/min/1.73sq m Chronic Kidney Disease: <60 mL/min/1.73sq m Kidney failure: <15 mL/min/1.73sq m eGFR calculated using average adult body mass. Additional eGFR calculator available at: http://www.[employer]/Rocket.La_crcl_2012.htm GFR/1.73 sq M predicted among non-blacks MDRD (S/P/Bld) [Vol rate/Area] NOT REPORTED [place] Glucose [Mass/Vol] 91 mg/dL 70 - 99 mg/dL [place] Interpretation and review of laboratory results Abnormal [place] Potassium [Moles/Vol] 5.0 mmol/L 3.7 - 5.3 mmol/L [place] Protein [Mass/Vol] 7.8 g/dL 6.4 - 8.3 g/dL [place] Sodium [Moles/Vol] 138 mmol/L 135 - 144 mmol/L [place] Urea nitrogen [Mass/Vol] 31 mg/dL High 8 - 23 mg/dL [place] Lipid Panelon 02-26-2020 Cholesterol [Mass/Vol] 131 mg/dL <200 [place] Comment on above: Cholesterol Guidelines: <200 Desirable 200-240 Borderline >240 Undesirable Cholesterol in HDL [Mass/Vol] 33 mg/dL Low >40 [place] Comment on above: HDL Guidelines: <40 Undesirable 40-59 Borderline >59 Desirable Cholesterol in LDL [Mass/Vol] 62 mg/dL 0 - 130 mg/dL [place] Comment on above: LDL Guidelines: <100 Desirable 100-129 Near to/above Desirable 130-159 Borderline >159 Undesirable Direct (measured) LDL and calculated LDL are not interchangeable tests. Cholesterol in VLDL [Mass/Vol] NOT REPORTED High 1 - 30 mg/dL [place] Cholesterol.total/Cho lesterol in HDL [Mass ratio] 4 {ratio} <5 [place] Interpretation and review of laboratory results Abnormal [place] Triglyceride [Mass/Vol] 182 mg/dL High <150 [place] Comment on above: Triglyceride Guidelines: <150 Desirable 150-199 Borderline 200-499 High >499 Very high Based on AHA Guidelines for fasting triglyceride, May 2012. Magnesiumon 02-26-2020 Magnesium [Mass/Vol] 2.1 mg/dL 1.6 - 2 .6 mg/dL [place] Otheron 02-26-2020 Immature granulocytes (Bld) [#/Vol] NOT REPORTED [place] Patient Fasting?on 0 Patient Fasting? YES [place] TSH with Reflexon 02-26-2020 TSH Qn 2.56 m[IU]/L [place], [place] Vitamin D 25 Hydroxyon 02-25 Vit D, 25-Hydroxy 54.9 ng/mL 30 - 100 ng/mL [place] Comment on above: Reference Range: Vitamin D status Range Deficiency <20 ng/mL Mild Deficiency 20-30 ng/mL Sufficiency 30-100 ng/mL Toxicity >100 ng/mL Protime-INRon 02-20-2020 INR Coag (PPP) [Relative time] 2.8 {INR} [place] Comprehensive Metabolic Pane yonis 01-21-2020 Albumin [Mass/Vol] 4.2 g/dL 3.5 - 5.2 g/dL [place] Albumin/Globulin [Mass ratio] NOT REPORTED [place] ALP [Catalytic activity/Vol] 58 U/L 40 - 129 U/L [place] ALT [Catalytic activity/Vol] 22 U/L 5 - 41 U/L [place] Anion gap [Moles/Vol] 10 mmol/L 9 - 17 mmol/L [place] AST [Catalytic activity/Vol] 21 U/L <40 [place] Bilirubin Ql (U) 0.80 mg/dL 0.3 - 1.2 mg/dL [place] Bun/Cre Ratio 22 High [place] Calcium [Mass/Vol] 10.1 mg/dL 8.6 - 10. 4 mg/dL [place] Chloride [Moles/Vol] 104 mmol/L 98 - 10 7 mmol/L [place] CO2 [Moles/Vol] 26 mmol/L 20 - 31 mmol/L [place] Creatinine [Mass/Vol] 1.85 mg/dL High 0.7 - 1.2 mg/dL [place] GFR 45 mL/min Low >60 [place] GFR Non- 37 mL/min Low >60 [place] GFR/1.73 sq M predicted among non-blacks MDRD (S/P/Bld) [Vol rate/Area] [place] Comment on above: Average GFR for 60-6 9 years old: 85 mL/min/1.73sq m Chronic Kidney Disease: <60 mL/min/1.73sq m Kidney failure: <15 mL/min/1.73sq m eGFR calculated using average adult body mass. Additional eGFR calculator available at: http://www.[employer]/multiple_crcl_2012.htm GFR/1.73 sq M predicted among non-blacks MDRD (S/P/Bld) [Vol rate/Area] NOT REPORTED [place] Glucose [Mass/Vol] 79 mg/dL 70 - 99 mg/dL [place] Interpretation and review of laboratory results Abnormal [place] Potassium [Moles/Vol] 4.7 mmol/L 3.7 - 5.3 mmol/L [place] Protein [Mass/Vol] 7.5 g/dL 6.4 - 8.3 g/dL [place] Sodium [Moles/Vol] 140 mmol/L 135 - 144 mmol/L [place] Urea nitrogen [Mass/Vol] 40 mg/dL High 8 - 23 mg/dL [place] Hemoglobin A1Con 01-21-2020 Glucose [Mass/Vol] 140 mg/dL [place] Comment on above: The ADA and AACC rec ommend providing the estimated average glucose result to permit better patient understanding of their HBA1c result. HbA1c (Bld) [Mass fraction] 6.5 % High 4 - 6 % [place] Interpretation and review of laboratory results Abnormal [place] Lipid Panelon 01-21-2020 Cholesterol [Mass/Vol] 127 mg/dL <200 [place] Comment on above: Cholesterol Guidelines: <200 Desirable 200-240 Borderline >240 Undesirable Cholesterol in HDL [Mass/Vol] 30 mg/dL Low >40 [place] Comment on above: HDL Guidelines: <40 Undesirable 40-59 Borderline >59 Desirable Cholesterol in LDL [Mass/Vol] 57 mg/dL 0 - 130 mg/dL [place] Comment on above: LDL Guidelines: <100 Desirable 100-129 Near to/above Desirable 130-159 Borderline >159 Undesirable Direct (measured) LDL and calculated LDL are not interchangeable tests. Cholesterol in VLDL [Mass/Vol] NOT REPORTED High 1 - 30 mg/dL [place] Cholesterol.total/Cho lesterol in HDL [Mass ratio] 4.2 {ratio} <5 [place] Interpretation and review of laboratory results Abnormal [place] Triglyceride [Mass/Vol] 201 mg/dL High <150 [place] Comment on above: Triglyceride Guidelines: <150 Desirable 150-199 Borderline 200-499 High >499 Very high Based on AHA Guidelines for fasting triglyceride, May 2012. Patient Fasting?on 0 Patient Fasting? yes [place] Protime-INRon 01-09-2020 INR Coag (PPP) [Relative time] 2.6 {INR} [place] Protime-INRon 10-17-2019 INR Coag (PPP) [Relative time] 2.6 {INR} [place] Basic Metabolic Panelon Anion gap [Moles/Vol] 12 mmol/L 9 - 17 mmol/L [facility] Phone: Bun/Cre Ratio 23 High [facility] Phone: Calcium [Mass/Vol] 10.6 mg/dL High 8.6 - 10. 4 mg/dL [facility] Phone: Chloride [Moles/Vol] 104 mmol/L 98 - 10 7 mmol/L [facility] Phone: CO2 [Moles/Vol] 24 mmol/L 20 - 31 mmol/L [facility] Phone: Creatinine [Mass/Vol] 1.65 mg/dL High 0.7 - 1.2 mg/dL [facility] Phone: GFR 51 mL/min Low >60 [facility] Phone: GFR Non- 42 mL/min Low >60 [facility] Phone: GFR/1.73 sq M predicted among non-blacks MDRD (S/P/Bld) [Vol rate/Area] NOT REPORTED [facility] Phone: GFR/1.73 sq M predicted among non-blacks MDRD (S/P/Bld) [Vol rate/Area] [facility] Phone: Comment on above: Average GFR for 60-6 9 years old: 85 mL/min/1.73sq m Chronic Kidney Disease: <60 mL/min/1.73sq m Kidney failure: <15 mL/min/1.73sq m eGFR calculated using average adult body mass. Additional eGFR calculator available at: http://www.[employer]com/multiple_crcl_2012.htm Glucose [Mass/Vol] 101 mg/dL High 70 - 99 mg/dL [facility] Phone: Interpretation and review of laboratory results Abnormal [facility] Phone: Potassium [Moles/Vol] 5.0 mmol/L 3.7 - 5.3 mmol/L [facility] Phone: Sodium [Moles/Vol] 140 mmol/L 135 - 144 mmol/L [facility] Phone: Urea nitrogen [Mass/Vol] 38 mg/dL High 8 - 23 mg/dL [facility] Phone: Basic Metabolic PanelOrdered By: Rafa Nicole on 09-02-2019 Anion gap [Moles/Vol] 14 mmol/L 9 - 17 mmol/L [facility] Phone: Bun/Cre Ratio 27 High [facility] Work Phone: Calcium [Mass/Vol] 11.0 mg/dL High 8.6 - 10. 4 mg/dL [facility] Phone: Chloride [Moles/Vol] 100 mmol/L 98 - 10 7 mmol/L [facility] Phone: CO2 [Moles/Vol] 24 mmol/L 20 - 31 mmol/L [facility] Phone: Creatinine [Mass/Vol] 1.9 mg/dL High 0.7 - 1.2 mg/dL [facility] Phone: GFR 44 mL/min Low >60 [facility] Phone: GFR Comment [facility] Phone: Comment on above: Average GFR for 60-6 9 years old: 85 mL/min/1.73sq m Chronic Kidney Disease: <60 mL/min/1.73sq m Kidney failure: <15 mL/min/1.73sq m eGFR calculated using average adult body mass. Additional eGFR calculator available at: http://www.[employer]Smart Holograms/multiple_crcl_2012.htm GFR Non- 36 mL/min Low >60 [facility] Phone: GFR Staging NOT REPORTED [facility] Work Phone: Glucose [Mass/Vol] 117 mg/dL High 70 - 99 mg/dL [facility] Phone: Interpretation and review of laboratory results Abnormal [facility] Phone: Potassium [Moles/Vol] 5.5 mmol/L High 3.7 - 5.3 mmol/L [facility] Phone: Sodium [Moles/Vol] 138 mmol/L 135 - 144 mmol/L [facility] Phone: Urea nitrogen [Mass/Vol] 51 mg/dL High 8 - 23 mg/dL [facility] Phone: Protime-INROrdered By: Crispin patel Provider on 09-02-2019 INR Coag (PPP) [Relative time] 2.5 {INR} [facility] Phone: NM Cardiac Stress Test Nucle ar ImagingOrdered By: Rafa Nicole on 08-19-2019 Radiology exam is complete. No Radiologist dictation. Please follow up with ordering provider. [facility] Phone: Basic Metabolic PanelOrdered By: Eloina Adilia on 08-14-2019 Anion gap [Moles/Vol] 13 mmol/L 9 - 17 mmol/L [facility] Phone: Bun/Cre Ratio 20 [facility] Work Phone: Calcium [Mass/Vol] 10.4 mg/dL 8.6 - 10. 4 mg/dL [facility] Phone: Chloride [Moles/Vol] 103 mmol/L 98 - 10 7 mmol/L [facility] Phone: CO2 [Moles/Vol] 26 mmol/L 20 - 31 mmol/L [facility] Phone: Creatinine [Mass/Vol] 1.69 mg/dL High 0.7 - 1.2 mg/dL [facility] Phone: GFR 50 mL/min Low >60 [facility] Phone: GFR Comment [facility] Phone: Comment on above: Average GFR for 60-6 9 years old: 85 mL/min/1.73sq m Chronic Kidney Disease: <60 mL/min/1.73sq m Kidney failure: <15 mL/min/1.73sq m eGFR calculated using average adult body mass. Additional eGFR calculator available at: http://www.[employer]/multiple_crcl_2012.htm GFR Non- 41 mL/min Low >60 [facility] Work Phone: GFR Staging NOT REPORTED [facility]Australian [facility] Work Phone: Glucose [Mass/Vol] 86 mg/dL 70 - 99 mg/dL [facility] Work Phone: Potassium [Moles/Vol] 4.2 mmol/L 3.7 - 5.3 mmol/L [facility] Work Phone: Sodium [Moles/Vol] 142 mmol/L 135 - 144 mmol/L [facility] Work Phone: Urea nitrogen [Mass/Vol] 34 mg/dL High 8 - 23 mg/dL [facility] Work Phone: CBC WITH AUTO DIFFERENTIALOr dered By: Eloina Pat on 08-14-2019 Absolute Eos # 0.20 [facility] Work Phone: Absolute Immature Granulocyte NOT REPORTED [facility] Work Phone: Absolute Lymph # 1.40 [facility] HospitalAustralian [facility] Corporation [facility]th Work Phone: Absolute [place] # 0.80 [facility] Work Phone: Basophils (Bld) [#/Vol] 0.00 10*3/uL [facility] Work Phone: Basophils/100 WBC (Bld) 0 % 0 - 2 % [facility] Work Phone: Differential Type YES [facility]alt Work Phone: Eosinophils/100 WBC (Bld) 2 % 0 - 5 % [facility] Phone: Erythrocyte distribution width (RBC) [Ratio] 15.0 % 12.1 - 15.2 % [facility] Phone: Hematocrit (Bld) [Volume fraction] 44.2 % 41 - 53 % [facility] Phone: Hemoglobin (Bld) [Mass/Vol] 14.4 g/dL 13.5 - 17.5 g/dL [facility] Phone: Immature Granulocytes NOT REPORTED 0 % [facility] Work Phone: Lymphocytes/100 WBC (Bld) 15 % 13 - 44 % [facility] Phone: MCH (RBC) [Entitic mass] 29.9 pg 26 - 34 pg [facility] Phone: MCHC (RBC) [Mass/Vol] 32.7 g/dL 31 - 3 7 g/dL [facility] Phone: MCV (RBC) [Entitic vol] 91.6 fL 80 - 100 fL [facility] Phone: Monocytes/100 WBC (Bld) 9 % 5 - 9 % [facility] Phone: MPV NOT REPORTED 6 - 12 fL [facility] Phone: NRBC Automated NOT REPORTED per 100 W[facility] Work Phone: Platelet Estimate NOT REPORTED [facility] Phone: Platelets (Bld) [#/Vol] 248 10*3/uL [facility] Phone: RBC (Bld) [#/Vol] 4.82 10*6/uL 4.5 - 5.9 m/uL [facility] Phone: RBC morphology finding Nom (Bld) NOT REPORTED [facility] Phone: Segmented neutrophils/100 WBC (Bld) 74 % 39 - 75 % [facility] Phone: Segs Absolute 6.40 [facility] [employer] Work Phone: WBC (Bld) [#/Vol] 8.8 10*3/uL [facility] Phone: WBC Morphology NOT REPORTED [facility] Work Phone: Hepatic Function PanelOrdere d By: Eloina Pat on 08-14-2019 Albumin [Mass/Vol] 4.4 g/dL 3.5 - 5.2 g/dL [facility] Phone: Albumin/Globulin Ratio NOT REPORTED [facility] Phone: ALP [Catalytic activity/Vol] 66 U/L 40 - 129 U/L [facility] Phone: ALT [Catalytic activity/Vol] 24 U/L 5 - 41 U/L [facility] Phone: AST [Catalytic activity/Vol] 25 U/L <40 [facility] Phone: Bilirubin [Mass/Vol] 1.92 mg/dL High 0.3 - 1 .2 mg/dL [facility] Phone: Bilirubin, Indirect 1.6 mg/dL High 0 - 1 mg/dL [facility] Phone: Bilirubin.indirect [Mass/Vol] 0.32 mg/dL High <0.31 [facility] Phone: Globulin NOT REPORTED 1.5 - 3.8 g/dL [facility] Phone: Protein [Mass/Vol] 7.7 g/dL 6.4 - 8.3 g/dL [facility] Phone: No Panel InformationOrdered By: Eloina Pat on 08-14-2019 Interpretation and review of laboratory results Abnormal [facility] Phone: Basic Metabolic PanelOrdered By: Eloina Pat on 08-12-2019 Anion gap [Moles/Vol] 13 mmol/L 9 - 17 mmol/L [facility] Phone: Bun/Cre Ratio 19 [employer] Phone: Calcium [Mass/Vol] 10.5 mg/dL High 8.6 - 10. 4 mg/dL [facility] Phone: Chloride [Moles/Vol] 103 mmol/L 98 - 10 7 mmol/L [facility] Phone: CO2 [Moles/Vol] 24 mmol/L 20 - 31 mmol/L [facility] Phone: Creatinine [Mass/Vol] 1.68 mg/dL High 0.7 - 1.2 mg/dL [facility] Phone: GFR 51 mL/min Low >60 [facility] Phone: GFR Comment [facility] Phone: Comment on above: Average GFR for 60-6 9 years old: 85 mL/min/1.73sq m Chronic Kidney Disease: <60 mL/min/1.73sq m Kidney failure: <15 mL/min/1.73sq m eGFR calculated using average adult body mass. Additional eGFR calculator available at: http://www.[employer]Smart Holograms/multiple_crcl_2012.htm GFR Non- 42 mL/min Low >60 [employer] Work Phone: GFR Staging NOT REPORTED [facility] Work Phone: Glucose [Mass/Vol] 92 mg/dL 70 - 99 mg/dL [facility] Phone: Potassium [Moles/Vol] 4.7 mmol/L 3.7 - 5.3 mmol/L [facility] Phone: Sodium [Moles/Vol] 140 mmol/L 135 - 144 mmol/L [facility] Phone: Urea nitrogen [Mass/Vol] 32 mg/dL High 8 - 23 mg/dL [facility] Phone: Brain Natriuretic PeptideOrd ered By: [employer] on 08-12-2019 BNP Interpretation Pro-BNP Reference Range: [facility] Phone: Comment on above: Rule Out: <300 Miller Zone: Age <50 300-450 Age 50-75 300-900 Age >75 300-1800 Usually represents mild to moderate HF but other cardiopulmonary causes cannot be ruled out. Rule In: Age <50 >450 Age 50-75 >900 Age >75 >1800 Natriuretic peptide B (Bld) [Mass/Vol] 3728 pg/mL High <300 [facility] Phone: Comment on above: Pro-BNP results william ot be compared to BNP results. CBC Auto DifferentialOrdered By: [employer] on 08-12-2019 Absolute Eos # 0.10 [facility] [facility] Work Phone: Absolute Immature Granulocyte NOT REPORTED [employer] Work Phone: Absolute Lymph # 1.30 [facility] Work Phone: Absolute Stan[place] # 0.70 [facility] Work Phone: Basophils (Bld) [#/Vol] 0.00 10*3/uL [employer] Work Phone: Basophils/100 WBC (Bld) 0 % 0 - 2 % [employer] Work Phone: Differential Type YES [employer] Work Phone: Eosinophils/100 WBC (Bld) 2 % 0 - 5 % [employer] Work Phone: Erythrocyte distribution width (RBC) [Ratio] 15.1 % 12.1 - 15.2 % [employer] Work Phone: Hematocrit (Bld) [Volume fraction] 43.0 % 41 - 53 % [employer] Work Phone: Hemoglobin (Bld) [Mass/Vol] 14.1 g/dL 13.5 - 17.5 g/dL [employer] Work Phone: Immature Granulocytes NOT REPORTED 0 % M [facility] Work Phone: Interpretation and review of laboratory results Abnormal [facility] Phone: Lymphocytes/100 WBC (Bld) 15 % 13 - 44 % [employer] Work Phone: MCH (RBC) [Entitic mass] 29.9 pg 26 - 34 pg [employer] Work Phone: MCHC (RBC) [Mass/Vol] 32.8 g/dL 31 - 3 7 g/dL [facility] Phone: MCV (RBC) [Entitic vol] 90.9 fL 80 - 100 fL [employer] Work Phone: Monocytes/100 WBC (Bld) 8 % 5 - 9 % [employer] Work Phone: MPV NOT REPORTED 6 - 12 fL [employer] Work Phone: NRBC Automated NOT REPORTED per 100 WBC [facility] Work Phone: Platelet Estimate NOT REPORTED [facility] Phone: Platelets (Bld) [#/Vol] 224 10*3/uL [employer] Work Phone: RBC (Bld) [#/Vol] 4.73 10*6/uL 4.5 - 5.9 m/uL [employer] Work Phone: RBC morphology finding Nom (Bld) NOT REPORTED [facility] Work Phone: Segmented neutrophils/100 WBC (Bld) 75 % 39 - 75 % [employer] Work Phone: Segs Absolute 6.80 [facility] [employer] Work Phone: WBC (Bld) [#/Vol] 8.9 10*3/uL [employer] Work Phone: WBC Morphology NOT REPORTED Rosey rodríguez Work Phone: CT ABDOMEN PELVIS W IV CONTR ASTOrdered By: Eloina Pat on 08-12-2019 1. Gallstones but no CT evidence for cholecystitis. 2. No other acute inflammatory process in the abdomen or pelvis. 3. Small pleural effusions and passive congestion in the liver suggesting volume overload. [employer] Work Phone: EXAMINATION: CT ABDO MEN PELVIS W [...] adenopathy in the pelvic or inguinal regions. [employer] Work Phone: Anrdés, Mhpn Incoming Radiant Results From [employer] - 08/12/2019 2:28 PM EST EXAMINATION: CT [...] congestion in the liver suggesting volume overload. [facility] Phone: D-Dimer, QuantitativeOrdered By: [employer] on 08-12-2019 D-Dimer, Quant <0.19 [facility] Phone: Comment on above: Elevated levels of [...] of 98%). Hepatic Function PanelOrdere d By: [employer] on 08-12-2019 Albumin [Mass/Vol] 4.7 g/dL 3.5 - 5.2 g/dL [facility] Phone: Albumin/Globulin Ratio NOT REPORTED [facility] Phone: ALP [Catalytic activity/Vol] 68 U/L 40 - 129 U/L [facility] Phone: ALT [Catalytic activity/Vol] 26 U/L 5 - 41 U/L [facility] Phone: AST [Catalytic activity/Vol] 35 U/L <40 [facility] Work Phone: Bilirubin [Mass/Vol] 2.00 mg/dL High 0.3 - 1 .2 mg/dL [facility] Work Phone: Bilirubin, Indirect 1.68 mg/dL High 0 - 1 mg/dL [facility] Phone: Bilirubin.indirect [Mass/Vol] 0.32 mg/dL High <0.31 [facility] Phone: Globulin NOT REPORTED 1.5 - 3.8 g/dL [facility] Work Phone: Interpretation and review of laboratory results Abnormal [facility] Work Phone: Protein [Mass/Vol] 7.9 g/dL 6.4 - 8.3 g/dL [facility] Phone: LipaseOrdered By: Eloina Myles on 08-12-2019 Lipase [Catalytic activity/Vol] 15 U/L 13 - 60 U/L [facility] Work Phone: No Panel InformationOrdered By: Eloina Pat on 08-12-2019 Interpretation and review of laboratory results Abnormal [employer] Work Phone: TroponinOrdered By: Eloina Pat on 08-12-2019 Troponin Interp [facility] HospitalAustralian [facility] Work Phone: Comment on above: Reference [...] for diagnosis. Troponin T <0.03 <0.03 ng/mL [employer] Work Phone: Comment on above: Troponin T results c annot be compared to Troponin-I results. Troponin, High Sensitivity NOT REPORTED 0 - 22 ng/L [facility] Phone: XR CHEST PORTABLEOrdered By: Eloina Pat on 08-12-2019 Mild cardiomegaly an d pulmonary venous congestion but no colleen edema. [facility] Phone: EXAMINATION: XR CHES T PORTABLE COMPARISON: 02/26/2019. CLINICAL DATA: Shortness of breath for one week. FINDINGS: There is cardiomegaly and pulmonary venous congestion but no colleen edema. No pneumothorax or pleural effusion. No focal infiltrate has developed. The left subclavian cardiac pacer defibrillator wires in the right ventricle. [facility] Phone: Andrés, Mhpn Incoming Radiant Results From [email or web address] - 08/12/2019 11:36 AM EST EXAMINATION: XR CHEST PORTABLE COMPARISON: 02/26/2019. CLINICAL DATA: Shortness of breath for one week. FINDINGS: There is cardiomegaly and pulmonary venous congestion but no colleen edema. No pneumothorax or pleural effusion. No focal infiltrate has developed. The left subclavian cardiac pacer defibrillator wires in the right ventricle. IMPRESSION: Mild cardiomegaly and pulmonary venous congestion but no colleen edema. [facility] Phone: Protime-INRon 06-03-2019 INR Coag (PPP) [Relative time] 2.8 {INR} [place], [place] Protime-INRon 04-11-2019 INR Coag (PPP) [Relative time] 2.5 {INR} [facility], JOAN PROGRESSon 10-31-2017 [facility] NOTES Normal [facility] NURSING NOTEon 10-19-2017 [facility] NOTES Normal [facility] NOT[facility] Normal [facility] NOT[facility] Normal [facility] NOT[facility] Normal [facility] NOT[facility] Normal [facility] XR CHEST PA AND LATERALon XR CHEST [...] Left ICD placement. No postprocedure pneumothorax. Normal [facility] BRIEF OP NOTon 10-18-2017 [facility] HIM CAC NOTES Normal [facility] CBC(NO DIFF)on 10-18-2017 Erythrocyte distribution width Auto Ratio (RBC) 15.5 % High 11.5-14.5 [facility] Comment on above: Performed By: #### H EMOG, CMPF, PT ####Testing performed at [address] [address] Erythrocytes (RBC) 5.14 /cmm Normal 4.0-6.1 [facility] Comment on above: Performed By: #### H EMOG, CMPF, PT ####Testing performed at [address] [address] Hematocrit (HCT) 44.0 % Normal 42.0-52.0 [facility] Comment on above: Performed By: #### H EMOG, CMPF, PT ####Testing performed at [address] [address] Hemoglobin mass conc (Bld) 14.7 g/dL Normal 14.0-18.0 [facility] Comment on above: Performed By: #### H EMOG, CMPF, PT ####Testing performed at [address] [address] MCH 28.6 pg Normal 26.0-35.0 [facility] Comment on above: Performed By: #### H EMOG, CMPF, PT ####Testing performed at [address] [address] MCHC mass conc (RBC) 33.5 g/dL Normal 27.0-37.0 [facility] Comment on above: Performed By: #### H EMOG, CMPF, PT ####Testing performed at [address] [address] MCV 85.5 fL Normal 80.0-100.0 [facility] Comment on above: Performed By: #### H EMOG, CMPF, PT ####Testing performed at [address] [address] Platelet mean volume (PMV) 8.6 fL Normal 7.4-11.0 [facility] Comment on above: Performed By: #### H EMOG, CMPF, PT ####Testing performed at [address] [address] Platelets 211 /cmm Normal 130.0-400.0 [facility] Comment on above: Performed By: #### H EMOG, CMPF, PT ####Testing performed at [address] [address] WBC (Leukocytes) 9.2 /cmm Normal 3.6-11.0 [facility] Comment on above: Performed By: #### H EMOG, CMPF, PT ####Testing performed at [address] [address] CMP FASTINGon 10-18-2017 A:G RATIO 1.4 RATIO Normal 1.3-2.2 [facility] Comment on above: Performed By: #### H EMOG, CMPF, PT ####Testing performed at [address] [address] Alanine aminotransferase (ALT) 31 U/L Normal 17-63 [facility] Comment on above: Performed By: #### H EMOG, CMPF, PT ####Testing performed at [address] [address] Albumin 4.8 G/dl Normal 3.5-5.0 [facility] Comment on above: Performed By: #### H EMOG, CMPF, PT ####Testing performed at [address] [address] Alkaline phosphatase (ALP) 67 U/L Normal 38-126 [facility] Comment on above: Performed By: #### H EMOG, CMPF, PT ####Testing performed at [address] [address] Aspartate aminotransferase (AST) 29 U/L Normal 15-41 [facility] Comment on above: Performed By: #### H EMOG, CMPF, PT ####Testing performed at [address] [address] Bilirubin (total) 1.7 mg/dL High 0.2-1.2 [facility] Comment on above: Performed By: #### H CHE MERRITTF, PT ####Testing performed at [address] [address] BUN (urea nitrogen) 47 mg/dL High 7-20 [facility] Comment on above: Performed By: #### H CHE MERRITTF, PT ####Testing performed at [address] [address] Creatinine 1.6 mg/dL High 0.66-1.25 [facility] Comment on above: Performed By: #### H AISHA MERRITT, PT ####Testing performed at [address] [address] eGFR (non-black) Average GFR for 60-6 9 years old = 85. Normal [facility] Comment on above: Result Comment: Public Health Teacher megan Kidney disease, GFR = <60.Kidney failure, GFR = <15.The GFR estimate is not adjusted for extreme body surface area or acute process, nor has it been validated for women or ethnic groups other than and . Performed By: #### H AISHA MERRITT, PT ####Testing performed at [address] [address] eGFR (non-black) 47 mL/min/{1.73_m2} Normal [facility] Comment on above: Performed By: #### H CHE MERRITTF, PT ####Testing performed at [address] [address] eGFR (non-black) 57 mL/min/{1.73_m2} Normal [facility] Comment on above: Performed By: #### H CHE MERRITTF, PT ####Testing performed at [address] [address] Protein 8.2 g/dL Normal 6.3-8.2 [facility] Comment on above: Performed By: #### H CHE MERRITTF, PT ####Testing [place] [address] Calcium 10.2 mg/dL Normal 8.4-10.2 [facility] Comment on above: Performed By: #### H AISHA MERRITT, PT ####Testing [place] [address] Chloride 102 mmol/L Normal 98-107 [facility] Comment on above: Performed By: #### H AISHA MERRITT, PT ####Testing performed [place] [address] CO2 25 mmol/L Normal 22-30 [facility] Comment on above: Performed By: #### H AISHA MERRITT, PT ####Testing [place] [address] Glucose mass conc 138 mg/dL High 70-100 [facility] Comment on above: Result Comment: NORM AL <100 mg/dLPREDIABETES 101-126 mg/dLDIABETES 126 mg/dL or higher Performed By: #### H AISHA MERRITT, PT ####Testing [place] [address] Potassium molar conc 5.3 mmol/L High 3.5-5.1 [facility] Comment on above: Performed By: #### H AISHA MERRITT, PT ####Testing [place] [address] Sodium 137 mmol/L Normal 137-145 [facility] Comment on above: Performed By: #### H AISHA MERRITT, PT ####Testing performed at [address] [address] HISTORY AND PHYSICALon 10-18 [facility] NOTES Normal [facility] MRSA SCREENon 10-18-2017 MRSA SCREEN Negative [facility] Comment on above: Performed By: #### M RSAST ####Testing performed [place] [address] STAPH AUREUS SCREEN Negative [facility] Comment on above: Result Comment: TEST ING PERFORMED BY PCR Performed By: #### M RSAST ####Testing performed at [place] [id number] NURSING NOTEon 10-18-2017 [facility] NOTES Normal [facility] NOT[facility] Normal [facility] NOT[facility] Normal [facility] NOT[facility] Normal [facility] NOT[facility] Normal [facility] NOTES Normal [facility] OP NOTEon 10-18-2017 [facility] NOTES Normal [facility] PLAN OF CAREon 10-18-2017 [facility] NOTES Normal [facility] PROGRESSon 10-18-2017 [facility] NOTES Normal [facility] PROTIMEon 10-18-2017 INR Coag RelTime (PPP) 1.40 {INR} High 0.88-1.12 [facility] Comment on above: Result Comment: 2.0- 3.0 THERAPEUTIC RANGE2.5-3.5 PROSTHETIC VALVE RANGE Performed By: #### H EMOG, CMPF, PT ####Testing [place] [address] Prothrombin time (PT) Coag time (PPP) 17.1 s High 11.6-14.0 [facility] Comment on above: Performed By: #### H EMOG, CMPF, PT ####Testing performed [place] [address] PROGRESSon 09-25-2017 [facility] NOTES Normal [facility] MR CARDIAC MORPHOLOGY WITH A ND WITHOUT [...] akinesis of the apical anterior wall and lwpxmgqr-fo-walkmo hypokinesis of the other apical segments. On [...] edema.Findings discussed with Dr. Nicole.SRAVAN/Coleen on ID: [id number] by: LESLIE MABRY on MonSep 18, 2017 2:50:27 PM ESTTranscribed by: LISS GIBSNO on MonSep 18, 2017 3:15:42 PM ESTFinalized by: LESILE MABRY on MonSep 18, 2017 8:06:56 PM EST Normal [facility] Comment on above: Order Comment: DX:I2 5.5, [...] discussed with Dr. Nicole. SRAVAN/arcenio Workstation ID: [id number] Invalid Interpretation Code [facility] MR Cardiac Morphology With And Without Contrast [...] akinesis of the apical anterior wall and wdalverc-mb-irmtmx hypokinesis of the other apical segments. On [...] mild interstitial pulmonary edema. Invalid Interpretation Code [employer] [facility] MR Cardiac Morphology With And Without Contrast [...] akinesis of the apical anterior wall and auiadlqn-gl-ajzoom hypokinesis of the other apical segments. On [...] discussed with Dr. Nicole. SRAVAN/[employer] Workstation ID: [id number] Invalid Interpretation Code [employer] [facility] POC Creatinineon 09-18-2017 Creatinine 1.4 mg/dL High 0.5 - 1.3 mg/dL COUNT INCLUDES THE [facility] POCT LAB Interpretation and review of laboratory results Abnormal Invalid Interpretation Code COUNT INCLUDES THE [facility] POCT LAB Glucose, POCon 09-06-2017 Glucose mass conc 95 mg/dL Normal 70-105 [facility] Comment on above: Performed By: #### G LUX ####Unless otherwise noted, all testing performed [facility] [address] [address], [place] [id number]: [id number] Director: Mando Chiu M.D. Operation-Procedureon 2017 Operation-Procedure [place] [address] [address].[place], [place] [address]BZZKBARAK SMILEY [facility] [id number] REPORT / PROCEDURE NOTESURGEON AYDE NIOCLE, [facility]ED[facility] heart catheterization, Har[place] technique.INDICATIONMr. Foster is a [...] right femoralartery and through this placed a 6-Maltese sheath. I then placed a Judkinsleft diagnostic [...] Wewill use guideline directed therapy .AYDE NICOLE, SOHEILA 09/06/2017 12:48 [id number] 09/06/2017 13:50 GSV/MODLcc: Jeff Cerda MDElectronically Signed By Ayde Nicole M.D. on 13 Sep 2017 12:43:56 GMT Normal [facility] Vital Signs Date Time Vital Sign Value Performing Clinician Alix mosley 07-12-2023 11:18-0500 Body height 180.3 cm Carolina Barger MD Work Phone: [facility] 07-12-2023 11:18-0500 Body weight 103.42 kg Carolina Barger MD Work Phone: [facility] 07-12-2023 11:18-0500 Diastolic blood pressure 78 mm[Hg] Carolina Barger MD Work Phone: [facility] 07-12-2023 11:18-0500 Heart rate 64 /min Carolina Barger MD Work Phone: [facility] 07-12-2023 11:18-0500 Respiratory rate 15 /min Carolina Barger MD Work Phone: [facility] 07-12-2023 11:18-0500 SaO2% (BldA) [Mass fraction] 98 % Carolina Barger MD Work Phone: [facility] 07-12-2023 11:18-0500 Systolic blood pressure 109 mm[Hg] Carolina Barger MD Work Phone: [facility] 06-27-2023 10:10-0500 Body height 180.3 cm Yannick uZñiga PA-C Work Phone: [facility] 06-27-2023 10:10-0500 Body weight 104.33 kg Yannick Matejka PA-C Work Phone: [facility] 06-27-2023 10:10-0500 Diastolic blood pressure 57 mm[Hg] Yannick Matejka PA-C Work Phone: [facility] 06-27-2023 10:10-0500 Heart rate 81 /min Yannick Matejka PA-C Work Phone: [facility] 06-27-2023 10:10-0500 SaO2% (BldA) [Mass fraction] 100 % Yannick Matejka PA-C Work Phone: [facility] 06-27-2023 10:10-0500 Systolic blood pressure 102 mm[Hg] Yannick Matejka PA-C Work Phone: [facility] 06-16-2023 10:41-0500 Body height 180.3 cm Anamaria Laffey COMPASS OPERATOR.HEEL GOUGER Work Phone: [facility] 06-16-2023 10:41-0500 Body weight 103.87 kg Anamaria Laffey COMPASS OPERATOR.HEEL GOUGER Work Phone: [facility] 06-16-2023 10:41-0500 Diastolic blood pressure 74 mm[Hg] Anamaria Laffey COMPASS OPERATOR.HEEL GOUGER Work Phone: [facility] 06-16-2023 10:41-0500 Heart rate 51 /min Anamaria Laffey COMPASS OPERATOR.HEEL GOUGER Work Phone: [facility] 06-16-2023 10:41-0500 SaO2% (BldA) [Mass fraction] 99 % Anamaria Laffey COMPASS OPERATOR.HEEL GOUGER Work Phone: [facility] 06-16-2023 10:41-0500 Systolic blood pressure 112 mm[Hg] Anamaria Laffey COMPASS OPERATOR.HEEL GOUGER Work Phone: [facility] 04-26-2023 10:12-0400 Body height 180.3 cm Yannick Matejka PA-C Work Phone: [facility] 04-26-2023 10:12-0400 Body weight 103.87 kg Yannick Sala PA-C Work Phone: [facility] 04-26-2023 10:12-0400 Diastolic blood pressure 71 mm[Hg] Yannick Sanchezjka PA-C Work Phone: [facility] 04-26-2023 10:12-0400 Heart rate 84 /min Yannick Jonellea PA-C Work Phone: [facility] 04-26-2023 10:12-0400 SaO2% (BldA) [Mass fraction] 100 % Yannick Sala PA-C Work Phone: [facility] 04-26-2023 10:12-0400 Systolic blood pressure 122 mm[Hg] Yannick Sala PA-C Work Phone: [facility] 01-04-2023 07:59-0400 Body mass index (BMI) [Ratio] 33.14 kg/m2 Rogerio Bergerck [facility] 01-04-2023 07:59-0400 Body weight 107.78 kg Rogerio Gruber [facility] 01-04-2023 07:59-0400 Diastolic blood pressure 78 mm[Hg] Rogerio Gruber [facility] 01-04-2023 07:59-0400 Heart rate 80 /min Rogerio Gruber [facility] 01-04-2023 07:59-0400 Systolic blood pressure 125 mm[Hg] Rogerio Gruber [facility] 11-23-2022 07:53-0400 Body mass index (BMI) [Ratio] 33.22 kg/m2 Rogerio Gruber [facility] 11-23-2022 07:53-0400 Body weight 108.05 kg Rogerio Gruber [facility] 11-23-2022 07:53-0400 Diastolic blood pressure 87 mm[Hg] Rogerio Gruber [facility] 04-19-2023 07:53-0400 Heart rate 92 /min Rogerio Gruber RP [facility] 11-23-2022 07:53-0400 Systolic blood pressure 123 mm[Hg] Rogerio Gruber RP [facility] 10-26-2022 07:57-0400 Body mass index (BMI) [Ratio] 33.36 kg/m2 Rogerio Gruber RP [facility] 10-26-2022 07:57-0400 Body weight 108.5 kg Rogerio Gruber RP [facility] 10-26-2022 07:57-0400 Diastolic blood pressure 63 mm[Hg] Rogerio Gruber RP [facility] 10-26-2022 07:57-0400 Heart rate 80 /min Rogerio Gruber RP [facility] 10-26-2022 07:57-0400 Systolic blood pressure 122 mm[Hg] [facility] 09-21-2022 07:57-0500 Body mass index (BMI) [Ratio] 33.05 kg/m2 Rogerio Gruber [facility] 09-21-2022 07:57-0500 Body weight 107.5 kg Rogerio Gruber RP [facility] 09-21-2022 07:57-0500 Diastolic blood pressure 77 mm[Hg] Roger[facility] 09-21-2022 07:57-0500 Heart rate 78 /min Rogerio Gruber RP [facility] 09-21-2022 07:57-0500 Systolic blood pressure 111 mm[Hg] Rogerio Gruber [facility] 08-26-2022 15:33-0500 Diastolic blood pressure 81 mm[Hg] Shahab Buckley MD Work Phone: [facility] 08-26-2022 15:33-0500 Heart rate 80 /min Shahab Buckley MD Work Phone: [facility] 08-26-2022 15:33-0500 Systolic blood pressure 131 mm[Hg] Shahab Buckley MD Work Phone: [facility] 08-26-2022 15:26-0500 Body height 180.3 cm Shahab Buckley MD Work Phone: [facility] 08-26-2022 15:26-0500 Body mass index (BMI) [Ratio] 33.05 kg/m2 Shahab Buckley MD Work Phone: [facility] 08-26-2022 15:26-0500 Body weight 107.5 kg Shahab Buckley MD Work Phone: [facility] 08-24-2022 08:02-0500 Body mass index (BMI) [Ratio] 34.59 kg/m2 Rogerio Allyn [facility] 08-24-2022 08:02-0500 Body weight 112.49 kg Rogerio Gruber [facility] 08-24-2022 08:02-0500 Diastolic blood pressure 61 mm[Hg] Rogerio Gruber [facility] 08-24-2022 08:02-0500 Heart rate 37 /min Rogerio Gruber [facility] 08-24-2022 08:02-0500 Systolic blood pressure 121 mm[Hg] Rogerio Allyn [facility] 07-27-2022 07:58-0500 Body mass index (BMI) [Ratio] 32.78 kg/m2 Rogerio Gruber [facility] 07-27-2022 07:58-0500 Body weight 106.59 kg Rogerio Gruber [facility] 07-27-2022 07:58-0500 Diastolic blood pressure 66 mm[Hg] Rogerio Gruber [facility] 07-27-2022 07:58-0500 Heart rate 60 /min Rogerio Allyn [facility] 07-27-2022 07:58-0500 Systolic blood pressure 122 mm[Hg] Rogerio Gruber [facility] 06-01-2022 08:13-0400 Body mass index (BMI) [Ratio] 32.78 kg/m2 Rogerio Gruber [facility] 06-01-2022 08:13-0400 Body weight 106.59 kg Rogerio Gruber [facility] 06-01-2022 08:13-0400 Diastolic blood pressure 64 mm[Hg] Rogerio [facility] 06-01-2022 08:13-0400 Heart rate 92 /min Rogerio Gruber RP [facility] 06-01-2022 08:13-0400 Systolic blood pressure 123 mm[Hg] Rogerio [facility]uber [facility] 04-27-2022 08:00-0400 Body mass index (BMI) [Ratio] 33.05 kg/m2 Rogerio Gruber [facility] 04-27-2022 08:00-0400 Body weight 107.5 kg Rogerio Gruber RP [facility] 04-27-2022 08:00-0400 Diastolic blood pressure 63 mm[Hg] Rogerio Gruber [facility] 04-27-2022 08:00-0400 Heart rate 97 /min Rogerio Gruber RP [facility] 04-27-2022 08:00-0400 Systolic blood pressure 122 mm[Hg] Rogerio Gruber [facility] 03-30-2022 07:52-0400 Body mass index (BMI) [Ratio] 33.28 kg/m2 Rogerio Gruber [facility] 03-30-2022 07:52-0400 Body weight 108.23 kg Rogerio Gruber [facility] 03-30-2022 07:52-0400 Diastolic blood pressure 71 mm[Hg] Rogerio Gruber [facility] 03-30-2022 07:52-0400 Heart rate 60 /min Rogerio Gruber [facility] 03-30-2022 07:52-0400 Systolic blood pressure 127 mm[Hg] Rogerio Gruber [facility] 03-16-2022 08:12-0400 Body mass index (BMI) [Ratio] 33.17 kg/m2 Rogerio Gruber [facility] 03-16-2022 08:12-0400 Body weight 107.86 kg Rogerio Gruber RP [facility] [email or web address] 03-16-2022 08:12-0400 Diastolic blood pressure 84 mm[Hg] [facility] [email or web address] 03-16-2022 08:12-0400 Heart rate 73 /min Rogerio Gruber R[facility] 03-16-2022 08:12-0400 Systolic blood pressure 141 mm[Hg] Rogerio Gruber [facility] 03-02-2022 07:53-0400 Body mass index (BMI) [Ratio] 32.78 kg/m2 Rogerio Gruber [facility] 03-02-2022 07:53-0400 Body weight 106.59 kg Rogerio Gruber [facility] 03-02-2022 07:53-0400 Diastolic blood pressure 70 mm[Hg] Rogeiro Gruber [facility] 03-02-2022 07:53-0400 Heart rate 67 /min Rogerio Gruber [facility] 03-02-2022 07:53-0400 Systolic blood pressure 114 mm[Hg] Rogerio Gruber [facility] 02-22-2022 08:25-0400 Body mass index (BMI) [Ratio] 32.27 kg/m2 Marion Bell [facility] 02-22-2022 08:25-0400 Body weight 104.96 kg Marion Bell [facility] [email or web address] 02-22-2022 08:25-0400 Diastolic blood pressure 67 mm[Hg] Marion Bell [facility] 02-22-2022 08:25-0400 Heart rate 68 /min Marion Bell [facility] [employer] [facility] 02-22-2022 08:25-0400 Systolic blood pressure 122 mm[Hg] Marion Bell [facility] 02-11-2022 15:49-0400 Diastolic blood pressure 78 mm[Hg] Shahab Buckley MD Work Phone: [facility] 02-11-2022 15:49-0400 Heart rate 83 /min Shahab Buckley MD Work Phone: [facility] 02-11-2022 15:49-0400 Systolic blood pressure 136 mm[Hg] Shahab Buckley MD Work Phone: [facility] 02-11-2022 15:42-0400 Body height 180.3 cm Shahab Buckley MD Work Phone: [facility] 02-11-2022 15:42-0400 Body mass index (BMI) [Ratio] 32.5 kg/m2 Shahab Buckley MD Work Phone: [facility] 02-11-2022 15:42-0400 Body weight 105.69 kg Shahab Buckley MD Work Phone: [facility] 02-03-2022 07:43-0400 Body mass index (BMI) [Ratio] 31.8 kg/m2 Raffy Richardson RP [facility] 02-03-2022 07:43-0400 Body weight 103.42 kg Raffy Richardson RP [facility] 02-03-2022 07:43-0400 Diastolic blood pressure 64 mm[Hg] Raffy Richardson [facility] 02-03-2022 07:43-0400 Heart rate 76 /min Raffy Richardson [facility] 02-03-2022 07:43-0400 Systolic blood pressure 113 mm[Hg] Raffy Richardson [facility] 01-27-2022 08:19-0400 Body mass index (BMI) [Ratio] 31.97 kg/m2 Raffy Richardson [facility] 01-27-2022 08:19-0400 Body weight 103.96 kg Raffy Richardson [facility] 01-27-2022 08:19-0400 Diastolic blood pressure 70 mm[Hg] Raffy Richardson [facility] 01-27-2022 08:19-0400 Heart rate 77 /min Raffy Richardson RP [facility] 01-27-2022 08:19-0400 Systolic blood pressure 108 mm[Hg] Raffy Richardson RP [facility] 01-20-2022 07:52-0400 Body mass index (BMI) [Ratio] 32.33 kg/m2 Raffy Richardson [facility] 01-20-2022 07:52-0400 Body weight 105.14 kg Raffy Richardson RP [facility] 01-20-2022 07:52-0400 Diastolic blood pressure 53 mm[Hg] Raffy Richardson RP [facility] 01-20-2022 07:52-0400 Heart rate 41 /min Raffy Richardson [facility] 01-20-2022 07:52-0400 Systolic blood pressure 105 mm[Hg] Raffy Richardson [facility] 01-13-2022 07:54-0400 Body mass index (BMI) [Ratio] 33.28 kg/m2 Raffy Richardson [facility] 01-13-2022 07:54-0400 Body weight 108.23 kg Raffy Richardson [facility] 01-13-2022 07:54-0400 Diastolic blood pressure 56 mm[Hg] Raffy Richardson [facility] 01-13-2022 07:54-0400 Heart rate 72 /min Raffy Richardson [facility] 01-13-2022 07:54-0400 Systolic blood pressure 100 mm[Hg] Raffy Richardson [facility] 01-07-2022 20:05-0400 Body mass index (BMI) [Ratio] 33.19 kg/m2 Lonnie Hart MD Work Phone: [facility] [employer] [facility] 01-07-2022 20:05-0400 Body temperature 97.7 [degF] Lonnie Hart MD Work Phone: [facility] 01-07-2022 20:05-0400 Body weight 107.96 kg Lonnie Hart MD Work Phone: [facility] 01-07-2022 20:05-0400 Diastolic blood pressure 96 mm[Hg] Lonnie Hrat MD Work Phone: [facility] 01-07-2022 20:05-0400 Heart rate 101 /min Lonnie Hart MD Work Phone: [facility] [employer] [facility] 01-07-2022 20:05-0400 Respiratory rate 18 /min Lonnie Hart MD Work Phone: [facility] [employer] [facility] 01-07-2022 20:05-0400 SaO2% (BldA) [Mass fraction] 98 % Lonnie Hart MD Work Phone: [facility] 01-07-2022 20:05-0400 Systolic blood pressure 151 mm[Hg] Lonnie Hart MD Work Phone: [facility] 01-06-2022 07:52-0400 Body mass index (BMI) [Ratio] 33.25 kg/m2 Raffy Richardson [facility] 01-06-2022 07:52-0400 Body weight 108.14 kg Raffy Richardson [facility] 01-06-2022 07:52-0400 Diastolic blood pressure 67 mm[Hg] Raffy Richardson [facility] 01-06-2022 07:52-0400 Heart rate 41 /min Raffy Richardson [facility] 01-06-2022 07:52-0400 Systolic blood pressure 111 mm[Hg] Raffy Richardson [facility] 12-29-2021 08:00-0400 Body temperature 98.01 [degF] Shahab Buckley MD Work Phone: [facility] 12-29-2021 08:00-0400 Diastolic blood pressure 74 mm[Hg] Shahab Buckley MD Work Phone: [facility] 12-29-2021 08:00-0400 Heart rate 78 /min Shahab Buckley MD Work Phone: [facility] 12-29-2021 08:00-0400 Respiratory rate 14 /min Shahab Buckley MD Work Phone: [facility] 12-29-2021 08:00-0400 SaO2% (BldA) [Mass fraction] 96 % Shahab Buckley MD Work Phone: [facility] 12-29-2021 08:00-0400 Systolic blood pressure 122 mm[Hg] Shahab Buckley MD Work Phone: [facility] 12-28-2021 11:00-0400 Body height 180.3 cm Shahab Buckley MD Work Phone: [facility] 12-28-2021 11:00-0400 Body mass index (BMI) [Ratio] 33.39 kg/m2 Shahab Buckley MD Work Phone: [facility] 12-28-2021 11:00-0400 Body weight 108.6 kg Shahab Buckley MD Work Phone: [facility] 12-22-2021 07:39-0400 Body mass index (BMI) [Ratio] 34.78 kg/m2 [facility] 12-22-2021 07:39-0400 Body weight 113.13 kg [facility] 12-22-2021 07:39-0400 Diastolic blood pressure 68 mm[Hg] [facility] 12-22-2021 07:39-0400 Heart rate 77 /min [facility] 12-22-2021 07:39-0400 Systolic blood pressure 111 mm[Hg] [facility] 12-09-2021 07:41-0400 Body mass index (BMI) [Ratio] 35.37 kg/m2 [facility] 12-09-2021 07:41-0400 Body weight 115.03 kg [facility] 12-09-2021 07:41-0400 Diastolic blood pressure 64 mm[Hg] [facility] 12-09-2021 07:41-0400 Heart rate 71 /min [facility] 12-09-2021 07:41-0400 Systolic blood pressure 115 mm[Hg] [facility] 12-08-2021 15:59-0400 Diastolic blood pressure 87 mm[Hg] Shahab Buckley MD Work Phone: [facility] 12-08-2021 15:59-0400 Heart rate 98 /min Shahab Buckley MD Work Phone: [facility] 12-08-2021 15:59-0400 Systolic blood pressure 132 mm[Hg] Shahab Buckley MD Work Phone: [facility] 12-08-2021 15:52-0400 Body height 180.3 cm Shahab Buckley MD Work Phone: [facility] 12-08-2021 15:52-0400 Body mass index (BMI) [Ratio] 35.43 kg/m2 Shahab Buckley MD Work Phone: [facility] 12-08-2021 15:52-0400 Body weight 115.21 kg Shahab Buckley MD Work Phone: [facility] 11-16-2021 08:05-0400 Body mass index (BMI) [Ratio] 34.76 kg/m2 Raffy [facility] [employer] 11-16-2021 08:05-0400 Body weight 113.04 kg Raffy [facility] [employer] 11-16-2021 08:05-0400 Diastolic blood pressure 66 mm[Hg] Raffy [facility] [employer] 11-16-2021 08:05-0400 Heart rate 78 /min Raffy [facility] [employer] 11-16-2021 08:05-0400 Systolic blood pressure 128 mm[Hg] Raffy [facility] [employer] 08-10-2021 08:03-0500 Body mass index (BMI) [Ratio] 34.06 kg/m2 Raffy [facility] [employer] 08-10-2021 08:03-0500 Body weight 110.77 kg Raffy [facility] [employer] 08-10-2021 08:03-0500 Diastolic blood pressure 67 mm[Hg] Raffy [facility] [employer] 08-10-2021 08:03-0500 Heart rate 45 /min Raffy [facility] [employer] 08-10-2021 08:03-0500 Systolic blood pressure 127 mm[Hg] Raffy [facility] [employer] 06-07-2021 07:41-0400 Body mass index (BMI) [Ratio] 34.92 kg/m2 Raffy [facility] [employer] Work Phone: 06-07-2021 07:41-0400 Body weight 113.58 kg Raffy [facility] [employer] Work Phone: 06-07-2021 07:41-0400 Diastolic blood pressure 62 mm[Hg] Raffy [facility] [employer] Work Phone: 06-07-2021 07:41-0400 Heart rate 72 /min Raffy [facility] [employer] Work Phone: 06-07-2021 07:41-0400 Systolic blood pressure 114 mm[Hg] Raffy Richardson [facility] Work Phone: 04-23-2021 07:40-0400 Body mass index (BMI) [Ratio] 34.81 kg/m2 Raffy Richardson [facility] Work Phone: 04-23-2021 07:40-0400 Body weight 113.22 kg Raffy Richardson [facility] [employer] Work Phone: 04-23-2021 07:40-0400 Diastolic blood pressure 63 mm[Hg] Raffy Richardson [facility] Work Phone: 04-23-2021 07:40-0400 Heart rate 55 /min Raffy Richardson [facility] Work Phone: 04-23-2021 07:40-0400 Systolic blood pressure 124 mm[Hg] Raffy Richardson [facility] [employer] Work Phone: 03-01-2021 10:30-0400 Body mass index (BMI) [Ratio] 33.92 kg/m2 Lorri Carmen [facility] Work Phone: [employer] Work Phone: 03-01-2021 10:30-0400 Body weight 110.31 kg Lorri Carmen [facility] Work Phone: [employer] Work Phone: 03-01-2021 10:30-0400 Diastolic blood pressure 68 mm[Hg] Lorri Carmen [facility] Work Phone: [employer] Work Phone: 03-01-2021 10:30-0400 Heart rate 66 /min Lorri Carmen [facility] Work Phone: [employer] Work Phone: 03-01-2021 10:30-0400 Systolic blood pressure 128 mm[Hg] Lorri Carmen [facility] Work Phone: [employer] Phone: 12-29-2020 08:07-0400 Body mass index (BMI) [Ratio] 34.62 kg/m2 Raffy Richardson [facility] [employer] Phone: 12-29-2020 08:07-0400 Body weight 112.58 kg Raffy Richardson [facility] [employer] Work Phone: 12-29-2020 08:07-0400 Diastolic blood pressure 67 mm[Hg] Raffy Richardson [facility] [employer] Work Phone: 12-29-2020 08:07-0400 Heart rate 71 /min Raffy Richardson [facility] [employer] Phone: 12-29-2020 08:07-0400 Systolic blood pressure 122 mm[Hg] Raffy Richardson [facility] [employer] Work Phone: 11-23-2020 10:14-0400 Body temperature 96.8 [degF] Ayde Matthews [employer] Work Phone: [employer] Phone: 11-23-2020 10:14-0400 Diastolic blood pressure 93 mm[Hg] Ayde Matthews [employer] Phone: [employer] Phone: 11-23-2020 10:14-0400 Heart rate 84 /min Ayde Matthews [employer] Phone: [employer] Phone: 11-23-2020 10:14-0400 Respiratory rate 14 /min Ayde Matthews [employer] Phone: [employer] Phone: 11-23-2020 10:14-0400 SaO2% (BldA) [Mass fraction] 96 % Ayde Matthews [employer] Phone: [employer] Phone: 11-23-2020 10:14-0400 Systolic blood pressure 155 mm[Hg] Ayde Matthews [employer] Phone: [employer] Phone: 11-23-2020 06:16-0400 Body height 180.3 cm Ayde Matthews [employer] Phone: [employer] Phone: 11-23-2020 06:16-0400 Body mass index (BMI) [Ratio] 34.8 kg/m2 Ayde Matthews [employer] Phone: [employer] Phone: 11-23-2020 06:16-0400 Body weight 113.17 kg Ayde Matthews [employer] Phone: [employer] Phone: 11-17-2020 08:06-0400 BMI (Body Mass Index) 35.06 kg/m2 Raffy [employer] Phone: 11-17-2020 08:06-0400 Body weight 114.03 kg Raffy [employer] Phone: 11-17-2020 08:06-0400 BP Diastolic 59 mm[Hg] Raffy [employer] Phone: 11-17-2020 08:06-0400 BP Systolic 101 mm[Hg] Raffy Dylan [employer] Phone: 11-17-2020 08:06-0400 Pulse (Heart Rate) 71 /min Raffy [employer] Phone: 11-09-2020 13:12-0400 BMI (Body Mass Index) 34.31 kg/m2 [employer] Phone: 11-09-2020 13:12-0400 Body Temperature 96.8 [degF] [employer] [employer] Phone: 11-09-2020 13:12-0400 Body weight 111.58 kg [facility] [employer] Phone: 11-09-2020 13:12-0400 BP Diastolic 78 mm[Hg] [facility] [employer] Phone: 11-09-2020 13:12-0400 BP Systolic 120 mm[Hg] [facility] [employer] Phone: 11-09-2020 13:12-0400 Height 180.3 cm [facility] Phone: 11-09-2020 13:12-0400 Pulse (Heart Rate) 73 /min [facility] Phone: 11-09-2020 13:12-0400 Pulse Oximetry 100 % [facility] Phone: 11-09-2020 13:12-0400 Respiratory Rate 18 /min [facility] Phone: 05-14-2020 07:41-0400 Body Temperature 96.8 [degF] [email or web address] [place] [facility]-2020 07:36-0400 Body Temperature 97.2 [degF] [email or web address] [place] 02-20-2020 07:39-0400 Body Temperature 97.81 [degF] [email or web address] [place] 01-09-2020 07:46-0400 Body Temperature 97.11 [degF] [facility] [place] 10-17-2019 07:33-0400 BMI (Body Mass Index) 34.55 kg/m2 [email or web address] [place] 10-17-2019 07:33-0400 [facility] 112.[facility] [place] 10-17-2019 07:33-0400 BP Diastolic 75 mm[Hg] [facility] [place] 10-17-2019 07:33-0400 BP Systolic 154 mm[Hg] [facility] , [place] 10-17-2019 07:33-0400 Pulse (Heart Rate) 70 /min Lorri Carmen [facility], [place] 09-02-2019 11:31-0500 Body mass index (BMI) [Ratio] 33.14 kg/m2 Raffy Richardson [facility] [employer] Work Phone: 09-02-2019 11:31-0500 Body weight 107.78 kg [facility] Work Phone: 09-02-2019 11:31-0500 Diastolic blood pressure 57 mm[Hg] Raffy Richardson [facility] [employer] Work Phone: 09-02-2019 11:31-0500 Heart rate 77 /min Raffy Richardson [facility] [employer] Work Phone: 09-02-2019 11:31-0500 Systolic blood pressure 115 mm[Hg] [facility] Work Phone: 08-12-2019 14:48-0500 Diastolic blood pressure 84 mm[Hg] Eloina Pat MD Work Phone: [employer] Work Phone: 08-12-2019 14:48-0500 Heart rate 77 /min Eloina Pat MD Work Phone: [employer] Work Phone: 08-12-2019 14:48-0500 Respiratory rate 21 /min Eloina Pat MD Work Phone: [employer] Work Phone: 08-12-2019 14:48-0500 SaO2% (BldA) [Mass fraction] 96 % Eloina Pat MD Work Phone: [employer] Work Phone: 08-12-2019 14:48-0500 Systolic blood pressure 151 mm[Hg] Eloina Pat MD Work Phone: [employer] Work Phone: 08-12-2019 11:35-0500 Body temperature 98.2 [degF] Eloina Pat MD Work Phone: [employer] Work Phone: 08-12-2019 10:51-0500 Body height 180.3 cm Eloina Pat MD Work Phone: [employer] Work Phone: 08-12-2019 10:51-0500 Body mass index (BMI) [Ratio] 30.68 kg/m2 Eloina Pat MD Work Phone: [employer] Work Phone: 08-12-2019 10:51-0500 Body weight 99.79 kg Eloina Pat MD [facility] Phone[facility] Work Phone: 06-03-2019 12:15-0400 Body weight 111.22 kg [place] 06-03-2019 12:15-0400 BP Diastolic 72 mm[Hg] [place] 06-03-2019 12:15-0400 BP Systolic 119 mm[Hg] [place] 06-03-2019 12:15-0400 Pulse (Heart Rate) 68 /min [facility] 04-11-2019 07:31-0400 Body weight 109.59 kg [facility] , [place] 04-11-2019 07:31-0400 BP Diastolic 86 mm[Hg] [facility] , [place] 04-11-2019 07:31-0400 BP Systolic 137 mm[Hg] [facility] , [place] 04-11-2019 07:31-0400 Pulse (Heart Rate) 77 /min [place], [place] 09-18-2017 07:08-0500 BMI (Body Mass Index) 33.47 kg/m2 Ayde Nicole [facility] Work Phone: 09-18-2017 07:08-0500 Height 180.3 cm Ayde Nicole [facility] Work Phone: 09-18-2017 07:08-0500 Weight 108.86 kg Ayde Nicole [facility] Work Phone: Encounters Encounter Date Encounter Type Care Provider Facility Start: 07-12-2023 End: 07-13-2023 ambulatory JEFF CERDA Facility:[facility] Start: 07-12-2023 End: 07-12-2023 Patient encounter procedure Carolina Barger MD Work Phone: Cardiology Comment on above: Chronic systolic HF (heart failure) (HCC) (Primary Dx); Coronary artery disease involving [place] coronary artery of [place] heart without angina pectoris; Atrial fibrillation, chronic (HCC) Start: 07-04-2023 Follow-up encounter Chandni Vitale MD Work Phone: [facility] Start: 07-04-2023 ICD Remote F/U Chandni Abbott i, MD Work Phone: [facility] Department Start: 06-27-2023 Nursing evaluation o f patient and report Research Coordinator Work Phone: Cardiology Comment on above: Research IRB [id number] CordioHearO (Primary Dx) Start: 06-27-2023 Patient entered into trial Research Coordinator Work Phone: [facility] Start: 06-27-2023 End: 06-27-2023 ambulatory YANNICK ZUÑIGA Facility:[facility] Start: 06-27-2023 End: 06-27-2023 Patient encounter procedure Yannick Zuñiga PA-C Work Phone: Cardiology Comment on above: Chronic systolic HF (heart failure) (HCC) (Primary Dx); Paroxysmal atrial fibrillation (HCC); Cardiomyopathy, nonischemic (HCC); Frequent PVCs Start: 06-16-2023 Follow-up encounter Chandni Vitale MD Work Phone: [facility] Start: 06-16-2023 End: 06-16-2023 Patient encounter procedure Chandni Vitale MD Work Phone: [facility] Department Comment on above: Paroxysmal atrial fi brillation (HCC) (Primary Dx); Pre-op exam Start: 06-16-2023 Encounter for other preprocedural examination ANAMARIA TA [facility] Start: 06-16-2023 End: 06-17-2023 ambulatory CHANDNI VITALE Facility:[facility] Start: 06-16-2023 End: 06-16-2023 Preprocedural examination done Anamaria Ta COMPASS OPERATOR.HEEL GOUGER Work Phone: [facility] Work Phone: Start: 06-15-2023 ambulatory Chandni Abbott i, MD Work Phone: Cardiology Comment on above: Patient Education (E PS-DCC) Start: 06-12-2023 Follow-up encounter Chandni Vitale MD Work Phone: [facility] Start: 06-12-2023 ICD Remote F/U Chandni Abbott i, MD Work Phone: [facility] Start: 06-07-2023 Telephone encounter [facility] olga Work Phone: Cardiology Start: 06-05-2023 Follow-up encounter Chandni Vitale MD Work Phone: [facility] Start: 06-05-2023 ICD Remote F/U Chandni Abbott i, MD Work Phone: [facility] Start: 05-24-2023 Telephone encounter Chandni Vitale MD Work Phone: Cardiology Comment on above: Future Appointment ( DCC) Start: 05-19-2023 Follow-up encounter Chandni Vitale MD Work Phone: [facility] Start: 05-19-2023 ICD Remote F/U Chandni Abbott i, MD Work Phone: [facility] Start: 05-16-2023 Telephone encounter Chandni Vitale MD Work Phone: Cardiology Start: 05-12-2023 Follow-up encounter Chandni Vitale MD Work Phone: [facility] Start: 05-12-2023 End: 05-12-2023 Orders Only Chandni Vitale MD Work Phone: Cardiology Start: 05-12-2023 Patient encounter procedure Chandni Vitale MD Work Phone: [facility] Start: 04-26-2023 End: 04-27-2023 ambulatory FRANCK TERRELL II Facility:[facility] Start: 04-26-2023 End: 04-26-2023 ambulatory Arrhythmia [...] Start: 04-19-2023 Telephone encounter Zeina Sanchez in [place] Comment on above: Follow Up Phone Call (RC all clear ) Start: 04-14-2023 ambulatory Mikael Henry [facility] Work Phone: [facility] Start: 04-14-2023 Telephone encounter Cain Higginbotham SENIOUR INSIGHT MANAGER NURSING A16 Comment on above: Follow Up Phone Call (Non-Urgent:Medication Concerns /) Post Dc Program Call - Needs Attn Transition Of Care ( TCM Pharmacy-Hospital discharge 04/13/23/); Heart Failure Start: 04-07-2023 Follow-up encounter Chandni Vitale MD Work Phone: [facility] Start: 04-07-2023 Patient encounter procedure Chandni Vitale MD Work Phone: [facility] Start: 04-03-2023 End: 04-05-2023 ambulatory CHETE XAVIER-NLIAM Facility:[facility] Start: 03-28-2023 Rx Change Shady little MD Work Phone: -[facility]-Anthony 250 DO Work Phone: Start: 03-24-2023 Follow-up encounter Chandni Vitale MD Work Phone: [facility] Start: 03-24-2023 Patient encounter procedure Chandni Vitale MD Work Phone: [facility] Start: 03-24-2023 End: 03-27-2023 ambulatory [facility] Facility:[facility] Start: 03-23-2023 End: 03-23-2023 ambulatory [facility] Facility:[facility] Start: 03-23-2023 End: 03-23-2023 ambulatory [facility] Facility:[facility] Start: 03-21-2023 Orders Only Venus Talbert MD Work Phone: Cardiology Comment on above: Heart disease (Prima ry Dx) Start: 03-20-2023 End: 04-13-2023 Evaluation and management of inpatient CHETE XAVIER-NLIAM Facility:[facility] Start: 03-20-2023 End: 03-21-2023 ambulatory [facility] Start: 03-18-2023 ambulatory Facility:[id number] Start: 03-17-2023 ambulatory Facility:[id number] Start: 03-16-2023 ambulatory Facility:[id number] Start: 03-15-2023 ambulatory Facility:[id number] Start: 03-15-2023 End: 03-18-2023 [facility] Start: 03-14-2023 End: 03-15-2023 ambulatory [facility] Start: 03-07-2023 End: 03-08-2023 ambulatory [facility] Start: 02-23-2023 End: 02-24-2023 ambulatory [facility] Start: 02-20-2023 End: 02-23-2023 [facility] Start: 02-20-2023 End: 02-22-2023 Subsequent hospital visit by physician Phuong Weldon [address] [place] [id number] Radiology Comment on above: 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; Coronary artery disease involving [place] heart without angina pectoris, unspecified vessel or lesion type; Hypertension, unspecified type; Vitamin D deficiency disease; Cardiomyopathy, unspecified type (HCC) Start: 02-15-2023 End: 02-16-2023 [facility] Start: 01-07-2023 Refill Shahab godfrey MD Work Phone: [facility] Comment on above: Medication Refill Start: 01-04-2023 End: 01-05-2023 [facility] Start: 01-04-2023 End: 01-04-2023 Subsequent hospital visit by physician Rogerio Gruber [facility] Medication Manangement Comment on above: LV (left ventricular ) 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 (Primary Dx); FDC (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 Start: 12-29-2022 End: 12-30-2022 [facility] GURWINDERJOSIE TRUONG Facility: Start: 11-23-2022 End: 11-24-2022 [facility] Start: 11-23-2022 End: 11-23-2022 Subsequent hospital visit by physician Rogerio Gruber [facility] Medication Manangement Comment on above: LV (left ventricular ) 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 (Primary Dx); 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 Start: 10-26-2022 End: 10-27-2022 [facility] Start: 10-26-2022 End: 10-26-2022 Subsequent hospital [facility] Comment on above: LV (left ventricular ) 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 (Primary Dx); 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 Start: 09-21-2022 End: 09-22-2022 [facility] Start: 09-21-2022 End: 09-21-2022 Subsequent hospital visit by [facility] Comment on above: LV (left ventricular ) 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 (Primary Dx); FDC (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 Start: 08-26-2022 End: 08-27-2022 [facility] Start: 08-26-2022 End: 08-26-2022 Office outpatient visit 15 minutes Shahab Buckley MD Work Phone: [facility] Comment on above: Carotid stenosis, sy mptomatic w/o infarct, right (Primary Dx); Left carotid stenosis Start: 08-24-2022 End: 08-25-2022 [facility] Start: 08-24-2022 End: 08-24-2022 Subsequent hospital visit by physician [facility] Med[facility]angement Comment on above: LV (left ventricular ) 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 (Primary Dx); FDC (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 Start: 07-27-2022 End: 07-28-2022 [facility] Start: 07-27-2022 End: 07-27-2022 Subsequent hospital visit by physician [facility] Gruber [facility] Med[facility]angement Comment on above: LV (left ventricular ) 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 (Primary Dx); 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 Start: 06-29-2022 End: 06-30-2022 [facility] Start: 06-01-2022 End: 06-02-2022 [facility] Start: 06-01-2022 End: 06-01-2022 Subsequent hospital visit by physician Rogerio Gruber [facility] Medication Manangement Comment on above: LV (left ventricular ) 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 (Primary Dx); 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 Start: 04-27-2022 End: 04-28-2022 [facility] Start: 04-27-2022 End: 04-27-2022 Subsequent hospital visit by physician Rogerio Gruber [facility] Medication Manangement Comment on above: LV (left ventricular ) 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 (Primary Dx); FDC (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 Start: 03-30-2022 End: 03-31-2022 [facility] Start: 03-30-2022 End: 03-30-2022 Subsequent hospital visit by physician Rogerio Gruber [facility] Medication Manangement Comment on above: LV (left ventricular ) 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 (Primary Dx); FDC (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 Start: 03-16-2022 End: 03-16-2022 Subsequent hospital visit by physician Rogerio Gruber [facility] Medication Manangement Comment on above: LV (left ventricular ) 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 (Primary Dx); FDC (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 Start: 03-02-2022 End: 03-02-2022 Subsequent hospital visit by physician Rogerio Gruber [facility] Medication Manangement Comment on above: LV (left ventricular ) 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 (Primary Dx); FDC (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 Start: 02-22-2022 End: 02-24-2022 Subsequent hospital visit by physician Marion Bell [facility] Comment on above: 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; Coronary artery disease involving [place] heart without angina pectoris, unspecified vessel or lesion type; Hypertension, unspecified type; Vitamin D deficiency disease; Cardiomyopathy, unspecified type (HCC); SOB (shortness of breath) LV (left ventricular ) 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 (Primary Dx); 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; Coronary artery disease involving [place] heart without angina pectoris, unspecified vessel or lesion type; Hypertension, unspecified type; Vitamin D deficiency disease; Cardiomyopathy, unspecified type (HCC); SOB (shortness of breath); Other specified diabetes mellitus without complication, with long-term current use of insulin (HCC) Coronary artery dise ase, unspecified vessel or lesion type, unspecified whether angina present, unspecified whether [place] or transplanted heart Start: 02-11-2022 End: 02-12-2022 [facility] Start: 02-11-2022 End: 02-11-2022 Postop follow up visit related to original px Shahab Buckley MD Work Phone: [facility] Comment on above: Carotid stenosis, sy mptomatic w/o infarct, right (Primary Dx); Symptomatic stenosis of right carotid artery Start: 02-03-2022 End: 02-03-2022 Subsequent hospital visit by physician Raffy Richardson [facility] Medication [facility]angement Comment on above: LV (left ventricular ) 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 (Primary Dx); 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 Start: 01-27-2022 End: 01-29-2022 Subsequent hospital visit by physician Raffy Sparks Dylan [facility] Medication Manangement Comment on above: LV (left ventricular ) 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 (Primary Dx); FDC (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 Start: 01-25-2022 Refill Angeles Samano RN [facility] Comment on above: Medication Refill Start: 01-20-2022 Refill Mary Jane delgado PA-C Work Phone: [facility] Comment on above: Medication Refill Start: 01-20-2022 End: 01-20-2022 Subsequent hospital visit by physician Raffy Sparks Dylan [facility] Med[facility] Manangement Comment on above: LV (left ventricular ) 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 (Primary Dx); FDC (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 Start: 01-13-2022 End: 01-13-2022 Subsequent hospital visit by physician Raffy Richardson [facility] Medication Manangement Comment on above: LV (left ventricular ) 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 (Primary Dx); FDC (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 Start: 01-08-2022 End: 01-10-2022 Subsequent [facility] Comment on above: Left arm pain Start: 01-07-2022 End: 01-07-2022 Emergency department patient visit Lonnie Hart MD Work Phone: [facility] ED Comment on above: Left arm pain (Prima ry Dx) Start: 01-06-2022 End: 01-06-2022 Subsequent hospital visit by physician [facility]aff[facility] Richardson [facility] Med[facility]angement Comment on above: LV (left ventricular ) 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 (Primary Dx); 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 Shahab Buckley MD Work Phone: [facility] Comment on above: Elevated serum creat inine (Primary Dx); Atherosclerosis of right carotid artery Start: 11-26-2021 End: 11-30-[address] 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 Start: 10-26-2021 End: 10-28-2021 [facility] Comment on above: Central artery occlu leslee of retina, left Start: 08-10-2021 End: 08-10-2021 Subsequent hospital visit [facility] Comment on above: LV (left ventricular ) 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 (Primary Dx); 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 Start: 06-07-2021 End: 06-07-2021 Subsequent hospital visit by [facility] Comment on above: LV (left ventricular ) 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 (Primary Dx); FDC (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 Start: 04-23-2021 End: 04-23-2021 Subsequent hospital visit by [facility] Comment on above: LV (left ventricular ) 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 (Primary Dx); FDC (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 Start: 03-01-2021 End: 03-01-2021 Subsequent hospital visit by physician Lorri Carmen [facility] Comment on above: LV (left ventricular ) 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 (Primary Dx); 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 Start: 02-25-2021 End: 02-25-2021 Subsequent hospital visit by physician Jeff Cerda MD Work Phone: [facility] Comment on above: 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; Coronary artery disease involving [place] heart without angina pectoris, unspecified vessel or lesion type; Hypertension, unspecified type; Vitamin D deficiency disease Start: 12-29-2020 End: 12-29-2020 Subsequent hospital visit by [facility] Comment on above: LV (left ventricular ) 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 (Primary Dx); 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 Start: 11-23-2020 End: 11-23-2020 ambulatory [facility] Start: 11-23-2020 End: 11-23-2020 Subsequent hospital visit by physician Ayde Matthews DO Work Phone: [facility] Comment on above: Post-op pain (Primar y Dx) Start: 11-17-2020 End: 11-17-2020 Subsequent hospital visit by physician Rafyf Sparks [facility] Medication Manangement 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; LV (left ventricular) 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 Start: 11-09-2020 End: 11-14-2020 ambulatory [facility] Start: 11-09-2020 End: 11-13-2020 Subsequent hospital visit by physician Bina Roberts 1 [facility] Pre-Admit Testing Start: 11-02-2020 End: 11-04-2020 Subsequent hospital visit by physician [facility] Ultrasound Room [facility] Ultrasound Comment on above: Epigastric pain Start: 08-25-2020 End: 08-27-2020 Subsequent hospital visit by physician [facility] Echo Room [facility] ECHO Comment on above: Cardiomyopathy, unsp ecified type (HCC); SOB (shortness of breath) 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; Coronary artery disease involving [place] heart without angina pectoris, unspecified vessel or lesion type; Hypertension, unspecified type; Vitamin D deficiency disease; Other specified diabetes mellitus without complication, with long-term current use of insulin (HCC) Start: 08-14-2020 End: 08-14-2020 Subsequent hospital visit by physician Raffy Sparks 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; LV (left ventricular) 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 Start: 05-14-2020 End: 05-14-2020 Subsequent hospital visit by physician Lorri Carmen Work Phone: [facility] Medication Manangement Comment on above: FDC (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; LV (left ventricular) 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 Start: 04-02-2020 End: 04-02-2020 Subsequent hospital visit by physician Lorri Carmen Work Phone: [employer] Medication Manangement Comment on above: FDC (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; LV (left ventricular) 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 Start: 02-26-2020 End: 02-26-2020 Subsequent hospital visit by physician Jeff [facility] Comment on above: 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; Coronary artery disease involving [place] heart without angina pectoris, unspecified vessel or lesion type; Hypertension, unspecified type; Vitamin D deficiency disease; Shortness of breath Start: 02-20-2020 End: 02-20-2020 Subsequent hospital visit by physician Lorri Carmen Work Phone: [employer] Medication Manangement Comment on above: FDC (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; LV (left ventricular) 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 Start: 01-21-2020 End: 01-21-2020 Subsequent hospital visit by physician Jeff [facility] Start: 01-09-2020 End: 01-09-2020 Subsequent hospital visit by physician Lorri Carmen Work Phone: [employer] [facility] Comment on above: FDC (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; LV (left ventricular) 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 Start: 10-17-2019 End: 10-17-2019 Subsequent hospital visit by physician Lorri Carmen Work Phone: [employer] [facility] Comment on above: FDC (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; LV (left ventricular) 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 Start: 2019 End: 2019 Subsequent hospital visit by physician Jeff [facility] Comment on above: Kidney insufficiency Start: 09-02-2019 End: 09-02-2019 Subsequent hospital visit by physician Jeff Cerda MD Other Phone: [facility] Comment on above: 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; Coronary artery disease involving [place] heart without angina pectoris, unspecified vessel or lesion type; Hypertension, unspecified type; Vitamin D deficiency disease; Shortness of breath Start: 09-02-2019 End: 09-02-2019 Subsequent hospital visit by physician Raffy Richardson RPH [employer] [facility] 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; LV (left ventricular) 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 Start: 08-19-2019 End: 08-21-2019 Subsequent hospital visit by physician Phuong Gaston [facility] Comment on above: Shortness of breath Cardiomyopathy, unsp ecified type (HCC); Shortness of breath Arrived Start: 08-14-2019 End: 08-14-2019 Subsequent hospital visit by physician Jeff Cerda MD Other Phone: [facility] Comment on above: Elevated bilirubin; Calculus of gallbladder without cholecystitis without obstruction Start: 08-12-2019 End: 08-12-2019 Emergency department patient visit Eloina Pat MD Work Phone: [facility] ED Comment on above: Acute on chronic con gestive heart failure, unspecified heart failure type (HCC) (Primary Dx); Coronary artery disease involving [place] heart without angina pectoris, unspecified vessel or lesion type; Hypertension, unspecified type; Other specified diabetes mellitus without complication, with long-term current use of insulin (HCC); Cardiomyopathy, unspecified type (HCC); Shortness of breath; Elevated bilirubin; Calculus of gallbladder without cholecystitis without obstruction Start: 06-03-2019 End: 06-03-2019 Subsequent hospital visit by physician Raffy Richardson [facility] 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; LV (left ventricular) 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 Start: 04-11-2019 End: 04-11-2019 Subsequent hospital visit by physician Lorri Carmen [facility] 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; LV (left ventricular) 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 Start: 10-31-2017 [facility] Start: 10-18-2017 End: 10-19-2017 Ambulatory SHADY Vida [facility] Start: 10-17-2017 Ambulatory [facility] Start: 09-25-2017 Ambulatory SHADY Vida [facility] Start: 09-18-2017 End: 09-19-2017 Ambulatory AYDE NICOLE [facility] Start: 09-18-2017 End: 09-18-2017 Ambulatory Ayde Nicole Work Phone: [facility] MRI Start: 09-06-2017 End: 09-06-2017 Ambulatory Ayde Nicole Facility:[facility] Start: 07-06-2017 End: 07-07-2017 Ambulatory DEFAULT PHYSICIAN Facility:[facility] Procedures Date Procedure Procedure Detail Performing Clinician [...] Comment: Speci men Type: BLOOD SPECIMENOrdering Facility: [facility] Address: [address] [place] [address] Performed By: #### T SCR ####CC MAIN BLOOD BANKCLIA [id number] [place] [address] [place] Start: 03-24-2023 ICD [...] Start: 03-16-2022 Prothrombin time Histor ical Provider Start: 03-02-2022 Prothrombin time Histor ical Provider [...] Phone: Start: 12-29-2021 Prothrombin time Susy Hernandez [facility]ly [facility],PharmD Start: 12-28-2021 Glucose measurement Puma Buckley MD [...] 07-12-2024 BP Controlled (<130/80) BP Controlled (<130/80) [facility] Start: 07-12-2024 Serum Creatinine Serum Creatinine [facility] Start: 06-27-2024 BP Controlled (<130/80) BP Controlled (<130/80) [facility] Start: 06-16-2024 BP Controlled (<130/80) BP Controlled (<130/80) [facility] Start: 06-16-2024 Serum Creatinine Serum Creatinine [facility] Start: 04-26-2024 BP Controlled (<130/80) BP Controlled (<130/80) [facility] Start: 04-26-2024 Serum Creatinine Serum Creatinine [facility] Start: 04-13-2024 HEMOGLOBIN/HEMATOCRIT HEMOGLOBIN/HEMATOCRIT [facility] Start: 04-13-2024 SERUM CREATININE SERUM CREATININE [facility] Start: 04-07-2024 HEMOGLOBIN/HEMATOCRIT HEMOGLOBIN/HEMATOCRIT [facility] Start: 04-07-2024 SERUM CREATININE SERUM CREATININE [facility] Start: 03-24-2024 HEMOGLOBIN/HEMATOCRIT HEMOGLOBIN/HEMATOCRIT [facility] Start: 03-23-2024 SERUM CREATININE SERUM CREATININE [facility] Start: 03-21-2024 HEMOGLOBIN/HEMATOCRIT HEMOGLOBIN/HEMATOCRIT [facility] Start: 03-21-2024 Hepatitis B screening URINE ALBUMIN:CREATININE RATIO [facility] Start: 03-21-2024 SERUM CREATININE SERUM CREATININE [facility] Start: 02-21-2024 GFR test (Diabetes, CKD 3-4, OR last GFR 15-59) GFR test (Diabetes, CKD 3-4, OR last GFR 15-59) [facility] Start: 02-21-2024 Hemoglobin A1c measurement A1C test (Diabetic or Prediabetic) [facility] Start: 02-21-2024 Hepatitis B surface antibody level LDL Cholesterol [facility] Start: 02-21-2024 Lipid panel Lipids [facility] Start: 09-21-2023 Hemoglobin A1c/Hemoglobin.total in Blood HBA1C [facility] Start: 09-18-2023 End: 12-18-2023 Basic metabolic 2000 panel - Serum or Plasma BASIC METABOLIC PNL Lab Routine Chronic systolic HF (heart failure) ([facility]) Expected: 09/18/2023, Expires: 12/18/[address] [facility] Work Phone: Comment on above: Expected: 09/18/2023, Expires: 4 Start: 09-18-2023 End: 12-18-2023 Natriuretic peptide.B prohormone N-Terminal [Mass/volume] in Serum or Plasma NT PRO BNP Lab Routine Chronic systolic HF (heart failure) ([facility]) Expected: 09/18/2023, Expires: 12/18/[address] [facility] Work Phone: Comment on above: Expected: 09/18/2023, Expires: 4 Start: 08-30-2023 End: 08-30-2023 Patient encounter procedure [facility] Start: 07-12-2023 End: 10-11-2023 Comprehensive metabolic 2000 panel - Serum or Plasma COMP METABOLIC PANEL Lab STAT Chronic systolic HF (heart failure) ([facility]) Expected: 07/12/2023, Expires: 10/11/[address] [facility] Work Phone: Comment on above: Expected: 07/12/2023, Expires: 4 Start: 07-12-2023 End: 10-11-2023 Magnesium [Mass/volume] in Serum or Plasma MAGNESIUM BLD Lab STAT Chronic systolic HF (heart failure) ([facility]) Expected: 07/12/2023, Expires: 10/11/[address] [facility] Work Phone: Comment on above: Expected: 07/12/2023, Expires: 4 Start: 07-12-2023 End: 10-11-2023 Natriuretic peptide.B prohormone N-Terminal [Mass/volume] in Serum or Plasma NT PRO BNP Lab STAT Chronic systolic HF (heart failure) (HCC) Expected: 07/12/2023, Expires: 10/11/[address] [facility] Work Phone: Comment on above: Expected: 07/12/2023, Expires: Start: 04-07-2023 Covid-19 Vaccine () Covid-19 Vaccine () [facility] Start: 04-07-2023 Influenza vaccination [facility] Start: 03-29-2023 End: 03-29-2023 Patient encounter procedure 03/29/2023 Appointment Pharmacy [facility] Start: 03-07-2023 [email or web address] Start: 02-27-2023 End: 02-27-2023 Patient encounter procedure 02/27/2023 Office Visit Cardiology Rafa Nicole MD [address] [id number] [facility] Coord[facility] Start: 02-23-2023 End: 02-23-2023 Patient encounter procedure 02/23/2023 Appointment Echocardiography Rafa Nicole MD [address] [place] [address] [facility] Start: 02-22-2023 GFR test (Diabetes, CKD 3-4, OR last GFR 15-59) GFR test (Diabetes, CKD 3-4, OR last GFR 15-59) [email or web address] Start: 02-22-2023 Hemoglobin A1c measurement A1C test (Diabetic or Prediabetic) [email or web address] Start: 02-22-2023 Lipid panel [facility]ids [email or web address] Start: 02-20-2023 End: 02-20-2023 Patient encounter procedure 02/20/2023 Appointment Echocardiography [facility] Start: 02-15-2023 End: 02-15-2023 Patient encounter procedure 02/15/2023 Appointment Pharmacy [facility] Start: 01-04-2023 End: 01-04-2023 Patient encounter procedure 01/04/2023 [facility] Start: 11-26-2022 Creatinine measurement Creatinine [facility] Start: 11-26-2022 Potassium [Moles/volume] in Serum or Plasma Potassium [facility] Start: 11-23-2022 End: 11-23-2022 Patient encounter procedure 11/23/2022 [facility] Start: 10-26-2022 End: 10-26-2022 Patient encounter procedure 10/26/2022 Appointment Pharmacy [facility] Start: 09-21-2022 End: 09-21-2022 Patient encounter procedure 09/21/2022 Appointment Pharmacy [facility] Start: 2022 ADVANCE DIRECTIVE DISCUSSION ADVANCE DIRECTIVE DISCUSSION [facility] Start: 2022 Fall risk assessment Falls Risk Assessment [facility] Start: 2022 Pneumococcal Vaccine: Age 65+ (1 - PCV) Pneumococcal Vaccine: Age 65+ (1 - PCV) [facility] Start: 09-06-2022 Hemoglobin A1c measurement A1C test (Diabetic or Prediabetic) [facility] Start: 08-26-2022 End: 08-26-2022 Patient encounter procedure [facility] Start: 08-25-2022 Hemoglobin A1c measurement A1C [facility] Start: 08-24-2022 End: 08-24-2022 Patient encounter procedure 08/24/2022 [facility] Start: 08-19-2022 End: 08-19-2022 Patient encounter procedure [facility] Start: 06-29-2022 End: 06-29-2022 Patient encounter procedure 06/29/2022 [facility] Start: 06-01-2022 End: 06-01-2022 Patient encounter procedure 06/01/2022 [facility] Start: 04-27-2022 End: 04-27-2022 Patient encounter procedure 04/27/2022 [facility] Start: 04-07-2022 Influenza vaccination [facility] Start: 03-30-2022 End: 03-30-2022 Patient encounter procedure 03/30/2022 Appointment Pharmacy [facility] Start: 03-16-2022 End: 03-16-2022 Patient encounter procedure 03/16/2022 Appointment Pharmacy [facility] Start: 03-07-2022 Influenza vaccination Flu vaccine (#1) [facility] Start: 03-06-2022 Hemoglobin A1c measurement A1C [facility] Start: 03-02-2022 End: 03-02-2022 Patient encounter procedure 03/02/2022 Appointment Pharmacy [facility] Start: 02-28-2022 End: 02-28-2022 Patient encounter procedure [facility] Start: 02-25-2022 Creatinine measurement Creatinine monitoring [facility] Start: 02-25-2022 Hemoglobin A1c measurement A1C test (Diabetic or Prediabetic) [facility] Start: 02-25-2022 Lipid panel [facility] Start: 02-25-2022 Potassium monitoring Potassium monitoring [facility] Start: 02-25-2022 Screening for malignant neoplasm of colon [facility] Start: 02-11-2022 End: 02-11-2022 Patient encounter procedure [facility] Start: 02-10-2022 End: 02-10-2022 Patient encounter procedure 02/10/2022 Appointment Pharmacy [facility] Start: 02-03-2022 End: 02-03-2022 Patient encounter procedure 02/03/2022 Appointment Pharmacy [facility] Start: 01-29-2022 End: 03-31-2022 Carotid artery doppler assessment Ultrasound doppler carotid Vascular Ultrasound Routine Carotid stenosis, symptomatic w/o infarct, right Expected: 01/29/2022, Expires: 03/31/2022 [facility] Work Phone: Comment on above: Expected: 01/29/2022, Expires: Start: 01-27-2022 End: 01-27-2022 Patient encounter procedure 01/27/2022 Appointment Pharmacy [facility] Start: 01-20-2022 End: 01-20-2022 Patient encounter procedure 01/20/2022 Appointment Pharmacy [facility] Start: 01-13-2022 End: 01-13-2022 Patient encounter procedure 01/13/2022 Appointment Pharmacy [facility] Start: 01-07-2022 End: 01-07-2023 VL DUP UPPER EXTREMITY VENOUS LEFT VL DUP UPPER EXTREMITY VENOUS LEFT Imaging Routine Left arm pain Expected: 01/07/2022, Expires: 01/07/2023 [facility] Work Phone: Comment on above: Expected: 01/07/2022, Expires: Start: 01-06-2022 End: 01-06-2022 Patient encounter procedure 01/06/2022 [facility] Start: 12-28-2021 End: 12-28-2021 Admission to same day surgery center 12/28/2021 Surgery Radiology Shahab Buckley MD [address] [place] [address] TRANSCAROTID ARTERY REVASCULARIZATION [facility] Interventional Radiology Comment on above: TRANSCAROTID ARTERY REVASCULARIZATION Start: 12-28-2021 Subsequent hospital visit by physician 12/28/2021 Hospital Encounter Cardiology Shahab Buckley MD [address] [place] [address] [facility] Procedural Care Unit Start: 12-28-2021 End: 12-28-2021 TRANSCAROTID ARTERY REVASCULARIZATION TRAN[facility] REVASCULAR[facility]ATION Symptomatic stenosis of right carotid artery 12/28/2021 12:30 PM EDT [facility] Start: 12-09-2021 End: 12-09-2021 Patient encounter procedure 12/09/2021 Appointment Pharmacy [facility] [place] Start: 12-08-2021 End: 12-08-2021 Patient encounter procedure 12/08/2021 Office Visit Cardiology Shahab Buckley MD [address] [place] [address] [facility] Start: 12-06-2021 End: 12-06-2021 Patient encounter procedure 12/06/2021 Appointment Radiology Shahab Buckley MD [address] [facility] [place] [address] [facility] [address] Scan Start: 11-23-2021 Creatinine measurement Creatinine monitoring [facility] Phone: Start: 11-23-2021 Potassium monitoring Potassium monitoring [facility] Phone: Start: 11-16-2021 End: 11-16-2021 Patient encounter procedure 11/16/2021 Appointment Pharmacy [facility] Start: 11-14-2021 COVID-19 Vaccine (4 - Booster for Pfizer series) COVID-19 Vaccine (4 - Booster for Pfizer series) [facility] Start: 11-09-2021 Creatinine measurement Creatinine monitoring [facility] Phone: Start: 11-09-2021 Potassium monitoring Potassium monitoring [facility] Phone: Start: 09-10-2021 COVID-19 Vaccine (4 - Booster for Pfizer series) COVID-19 Vaccine (4 - Booster for Pfizer series) [facility] Start: 09-10-2021 COVID-19 VACCINE (4 - Pfizer series) COVID-19 VACCINE (4 - Pfizer series) [facility] Start: 09-06-2021 End: 09-06-2021 Patient encounter procedure 09/06/2021 Appointment Pharmacy [facility] Start: 08-25-2021 Creatinine measurement Creatinine monitoring [place] [employer] Start: 08-25-2021 Lipid panel Lipid screen [employer] [employer] Start: 08-25-2021 Potassium monitoring Potassium monitoring [facility] [employer] Start: 08-14-2021 Creatinine measurement Creatinine monitoring [place], [place] Start: 08-14-2021 HbA1c (Bld) [Mass fraction] A1C test (Diabetic or Prediabetic) [facility] [employer] Start: 08-14-2021 Hemoglobin A1c measurement A1C test (Diabetic or Prediabetic) [facility] Phone: Start: 08-14-2021 Potassium monitoring Potassium monitoring [employer], [place] Start: 07-19-2021 End: 07-19-2021 Patient encounter procedure 07/19/2021 [facility] Start: 06-07-2021 End: 06-07-2021 Patient encounter procedure 06/07/2021 Appointment Pharmacy [facility] [place] [facility] Start: 05-02-2021 COVID-19 Vaccine (3 - Pfizer booster) COVID-19 Vaccine (3 - Pfizer booster) [facility] Work Phone: Start: 04-19-2021 End: 04-19-2021 Patient encounter procedure 04/19/2021 [facility] Start: 04-07-2021 Influenza vaccination [facility] Start: 03-01-2021 End: 03-01-2021 Office Visit [facility] Start: 02-25-2021 Creatinine measurement Creatinine [facility] [place] [place] Start: 02-25-2021 Lipid panel Lipid screen [place], [place] Start: 02-25-2021 Potassium monitoring Potassium monitoring [facility] [place] Start: 01-29-2021 Microalbumin measurement, urine, quantitative Urine Microalbumin [facility] Start: 01-29-2021 Urine screening for protein [facility] Start: 01-20-2021 Creatinine measurement Creatinine monitoring [facility] [place] Start: 01-20-2021 HbA1c (Bld) [Mass fraction] A1C test (Diabetic or Prediabetic) [place], [place] Start: 01-20-2021 Lipid panel Lipid screen [place], [place] Start: 01-20-2021 Potassium monitoring Potassium monitoring [facility] [place] Start: 01-19-2021 End: 01-19-2021 Patient encounter procedure 01/19/2021 [facility] Start: 12-29-2020 End: 12-29-2020 Appointment 12/29/2020 Appointment Pharmacy [facility] Start: 11-23-2020 End: 11-23-2020 Hospital Encounter [facility] [place] Comment on above: XI ROBOTIC LAPAROSCOPIC CHOLECYSTECTOMY, POSSIBLE OPEN Start: 11-18-2020 End: 11-18-2020 Appointment 11/18/2020 Appointment Pre-Admission Testing [facility] Start: 11-17-2020 End: 11-17-2020 Appointment [facility] Comment on above: Arrived Start: 11-09-2020 Hospital Encounter 11/09/2020 Hospital Encounter Pre-Admission Testing [facility] Pre-Admit Testing Start: 09-29-2020 End: 09-29-2020 Appointment 09/29/2020 Appointment Pharmacy [facility] Start: 2020 Creatinine measurement Creatinine monitoring [facility] [place], [place] Start: 2020 Creatinine monitoring Creatinine monitoring [employer] [place] , [place] Start: 2020 Potassium monitoring Potassium monitoring [employer] [place], [place] Start: 09-02-2020 Creatinine monitoring Creatinine monitoring [facility] Phone: Start: 09-02-2020 Potassium monitoring Potassium monitoring [facility] Phone: Start: 08-31-2020 End: 08-31-2020 Office Visit 08/31/2020 Office Visit Cardiology Rafa Nicole MD [address] [place] [id number] [facility] Start: 08-25-2020 End: 08-25-2020 Appointment 08/25/2020 Appointment Echocardiography [facility] Start: 08-14-2020 Creatinine monitoring Creatinine monitoring [facility] Phone: Start: 08-14-2020 Potassium monitoring Potassium monitoring [facility] Phone: Start: 08-12-2020 Creatinine monitoring Creatinine monitoring [facility] Phone: Start: 08-12-2020 Potassium monitoring Potassium monitoring [facility] Phone: Start: 06-25-2020 End: 06-25-2020 Appointment 06/25/2020 Appointment Pharmacy [facility] Start: 05-14-2020 End: 05-14-2020 Appointment 05/14/2020 Appointment Pharmacy [facility] Start: 04-07-2020 [facility]enza [facility] [place] [place] Start: 04-02-2020 End: 04-02-2020 Appointment 04/02/2020 Appointment Pharmacy [facility] Start: 03-04-2020 Urine screening for protein Diabetic Alb to Cr ratio (uACR) test [facility] Start: 03-02-2020 End: 03-02-2020 Office Visit 03/02/2020 Office Visit Cardiology Rafa Nicole MD [address] [place] [address] [phone] [facility] Coord[facility] Start: 02-27-2020 A1C test (Diabetic or Prediabetic) A1C test (Diabetic or Prediabetic) [place], [place] Start: 02-27-2020 Creatinine monitoring Creatinine monitoring [place], [place] Start: 02-27-2020 HbA1c (Bld) [Mass fraction] A1C test (Diabetic or Prediabetic) [place], [place] Start: 02-27-2020 Lipid panel Lipid screen [place], [place] Start: 02-27-2020 Lipid screen Lipid screen [place], [place] Start: 02-27-2020 Potassium monitoring Potassium monitoring [place], [place] Start: 02-20-2020 End: 02-20-2020 Appointment 02/20/2020 Appointment Pharmacy [facility] Start: 11-28-2019 End: 11-28-2019 Appointment 11/28/2019 Appointment Pharmacy [facility] Start: 11-19-2019 End: 11-19-2019 Office Visit 11/19/2019 Office Visit Cardiology Rafa Nicole MD [address] [place] [address] [phone] [facility] Coord[facility] Start: 11-05-2019 End: 11-05-2019 Office Visit 11/05/2019 Office Visit Bariatrics Wagner Jose MD [address] [place] [address] [facility] Invasive Bariatric Surg Start: 10-25-2019 End: 10-25-2019 Office Visit 10/25/2019 Office Visit Cardiology Rafa Nicole MD [address] [place], [place] [phone] [facility] Coord[facility] Start: 10-24-2019 End: 10-24-2019 Hospital Encounter [facility] Comment on above: LAPAROSCOPIC XI ROBOTIC CHOLECYSTECTOMY Start: 10-16-2019 End: 10-16-2019 Appointment 10/16/2019 Appointment Pharmacy [facility] Start: 09-25-2019 End: 09-25-2019 Hospital Encounter [facility] Comment on above: CHOLECYSTECTOMY LAPAROSCOPIC ROBOTIC Start: 09-02-2019 End: 09-02-2019 Office Visit [facility] Start: 08-19-2019 End: 08-19-2019 Patient encounter procedure [facility] Start: 08-13-2019 End: 09-12-2019 Basic metabolic 2000 panel - Serum or Plasma Basic Metabolic Panel Lab Routine Elevated bilirubin Calculus of gallbladder without cholecystitis without obstruction Expected: 08/13/2019, Expires: 09/12/2019 [facility] Phone: Comment on above: Expected: 08/13/2019, Expires: 0 Start: 08-13-2019 End: 09-12-2019 CBC W Auto Differential panel - Blood CBC WITH AUTO DIFFERENTIAL Lab Routine Elevated bilirubin Calculus of gallbladder without cholecystitis without obstruction Expected: 08/13/2019, Expires: 09/12/2019 [facility] Phone: Comment on above: Expected: 08/13/2019, Expires: 0 Start: 08-13-2019 End: 09-12-2019 Comprehensive metabolic 2000 panel - Serum or Plasma Comprehensive Metabolic Panel Lab Routine Elevated bilirubin Calculus of gallbladder without cholecystitis without obstruction Expected: 08/13/2019, Expires: 09/12/2019 [facility] Phone: Comment on above: Expected: 08/13/2019, Expires: 0 Start: 08-13-2019 End: 09-12-2019 Hepatic function 2000 panel - Serum or Plasma Hepatic Function Panel Lab Routine Elevated bilirubin Calculus of gallbladder without cholecystitis without obstruction Expected: 08/13/2019, Expires: 09/12/2019 [facility] Phone: Comment on above: Expected: 08/13/2019, Expires: 02/06/202 0 Start: 07-17-2019 End: 07-17-2019 Appointment 07/17/2019 Appointment Pharmacy [facility] [place] Medication [facility]angement Start: 06-03-2019 End: 06-03-2019 Appointment [facility] Medication Manangement Start: 04-07-2019 Influenza vaccination Flu vaccine (#1) [place], [place] Start: 2017 Hepatitis B Vaccine (1 of 3 - Risk 3-dose series) Hepatitis B Vaccine (1 of 3 - Risk 3-dose series) [facility] Start: 2017 RSV Vaccine (1 - 1-dose 60+ series) RSV Vaccine (1 - 1-dose 60+ series) [facility] Start: 2017 Zoster vacc, sc ZOSTER VACCINE [facility] Work Phone: Start: 04-07-2017 Influenza vaccination SEQUENTIAL INFLUENZA VACCINE (#1) [facility] Work Phone: Start: 2012 PROSTATE CANCER SCREENING DISCUSSION PROSTATE CANCER SCREENING DISCUSSION [facility] Start: 2007 Administration of herpes zoster vaccine Zoster Vaccines (1 of 2) [facility] Start: 2007 Colon cancer screen colonoscopy Colon cancer screen colonoscopy [place], [place] Start: 2007 Screening for malignant neoplasm of colon [facility] Start: 2007 Shingles Vaccine (1 of 2) Shingles Vaccine (1 of 2) [facility] Start: 2007 SHINGRIX VACCINE (1 of 2) SHINGRIX VACCINE (1 of 2) [facility] Start: 2002 COLOGUARD (FIT-DNA) COLOGUARD (FIT-DNA) [facility] Start: 2002 Colonoscopy COLONOSCOPY [facility] Start: 2002 COLORECTAL CANCER SCREENING COLORECTAL CANCER SCREENING [facility] Start: [address] COLONOGRAPHY [facility] Start: 2002 FECAL OCCULT BLOOD FECAL OCCULT BLOOD [facility] Start: 2002 Screening for malignant neoplasm of colon [facility] Start: 2002 SIGMOIDOSCOPY SIGMOIDOSCOPY [facility] Start: 1997 Prostate specific antigen measurement Prostate Specific Antigen (PSA) Screening or Monitoring [facility] Start: 1976 DTaP/Tdap/Td vaccine (1 - Tdap) DTaP/Tdap/Td vaccine (1 - Tdap) [facility] Start: 1976 Hepatitis B vaccine (1 of 3 - Risk 3-dose series) Hepatitis B vaccine (1 of 3 - Risk 3-dose series) [place], [place] Start: 1976 Urine microalbumin profile [facility] Start: 1975 ANNUAL PCP TEAM CHRONIC DISEASE VISIT ANNUAL PCP TEAM CHRONIC DISEASE VISIT [facility] Start: 1975 BP CONTROLLED (<130/80) BP CONTROLLED (<130/80) [facility] in Start: 1975 Diabetic microalbuminuria test Diabetic microalbuminuria test [place], [place] Start: 1975 Diabetic retinal exam Diabetic retinal exam [facility] Start: 1975 Glaucoma screening Diabetic retinal exam [facility] Start: 1975 Hepatitis B surface antibody level LDL CHOLESTEROL [facility] Start: 1975 Hepatitis C screening [facility] Start: 1975 HEPATITIS C SCREENING HEPATITIS C SCREENING [facility] Start: 1975 HIV SCREENING HIV SCREENING [facility] Start: 1975 Urine screening for protein Diabetic microalbuminuria test [facility] Start: 1973 COVID-19 Vaccine (1) COVID-19 Vaccine (1) [facility] Phone: Start: 1972 HIV screen HIV screen [place], [place] Start: 1972 HIV screening [facility] Start: 1969 COVID-19 Vaccine (1) COVID-19 Vaccine (1) [facility] Phone: Start: 1969 Depression Screen Depression Screen [facility] Start: 1969 Depression screening using PHQ-9 (Patient Health Questionnaire 9) score Depression Screening (PHQ-2/9) [facility] Start: 1968 DTaP/Tdap/Td vaccine (1 - Tdap) DTaP/Tdap/Td vaccine (1 - Tdap) [facility] Phone: Start: 1967 [object Object] Diabetic foot exam [facility] Start: 1967 Diabetic foot examination [facility] Start: 1967 Diabetic retinal exam Diabetic retinal exam [place], [place] Start: 1967 Glaucoma screening [facility] Start: 1967 Hepatitis C antibody, confirmatory test DILATED RETINAL EXAM [facility] Start: 1967 Microalbumin measurement, urine, quantitative Urine Microalbumin [facility] Start: 1967 Ophthalmic examination and evaluation Ophthalmology Exam [facility] Start: 1963 Pneumococcal 0-64 years Vaccine (1 - PCV) Pneumococcal 0-64 years Vaccine (1 - PCV) [facility] Start: 1963 Pneumococcal 0-64 years Vaccine (1 of 1 - PPSV23) Pneumococcal 0-64 years Vaccine (1 of 1 - PPSV23) [place] Start: 1963 Pneumococcal 0-64 years Vaccine (1 of 2 - PPSV23) Pneumococcal 0-64 years Vaccine (1 of 2 - PPSV23) [facility] Start: 1963 Pneumococcal 65+ years Vaccine (1 - PCV) Pneumococcal 65+ years Vaccine (1 - PCV) [facility] Start: 1963 Pneumococcal Vaccine: 65+ (1 - PCV) Pneumococcal Vaccine: 65+ (1 - PCV) [facility] Start: 1963 PNEUMOCOCCAL: 65+ (1 - PCV) PNEUMOCOCCAL: 65+ (1 - PCV) [facility] Start: 1960 History and physical examination, annual for health maintenance Wellness Visit [facility] Start: 1957 Hepatitis C screen Hepatitis C screen [place], [place] Start: 1957 HEPATITIS C SCREENING HEPATITIS C SCREENING [facility] Work Phone: Start: 1957 Hepatitis C screening Hepatitis C screen [facility] Start: 1957 Prostate specific antigen measurement PSA Level [facility] Start: 1957 Screening colonoscopy COLONOSCOPY [facility] Work Phone: Start: 1957 Screening for malignant neoplasm of colon [facility] Start: 1957 Tetanus vaccination [facility] End: 04-14-2023 Carotid artery doppler assessment Carotid Duplex Vascular Ultrasound Routine Carotid stenosis, symptomatic w/o infarct, right 1 Occurrences starting 02/11/2022 until 04/14/2023 [facility] Work Phone: Comment on above: 1 Occurrences starting 02/11/2022 until 04/14/2023 End: 10-25-2023 Carotid artery doppler assessment Carotid Duplex Vascular Ultrasound Routine Carotid stenosis, symptomatic w/o infarct, right 1 Occurrences starting 08/26/2022 until 10/25/2023 [employer] Work Phone: Comment on above: 1 Occurrences starting 08/26/2022 until 10/25/2023 End: 08-25-2020 ECHO Complete 2D W Doppler W Color ECHO Complete 2D W Doppler W Color Echocardiography Routine Cardiomyopathy, unspecified type (HCC) SOB (shortness of breath) 1 Occurrences starting 08/25/2020 until 08/25/2020 [facility] [place] Comment on above: 1 Occurrences starting 08/25/2020 until 08/25/2020 End: 08-19-2019 ECHO Complete 2D W Doppler W Color ECHO Complete 2D W Doppler W Color Echocardiography Routine Cardiomyopathy, unspecified type (HCC) Shortness of breath 1 Occurrences starting 08/19/2019 until 08/19/2019 [employer] Work Phone: Comment on above: 1 Occurrences starting 08/19/2019 until 08/19/2019 EKG 12 Lead [facility] [facility] Phone: EKG 12 Lead EKG 12 Lead ECG Routine ICD (implantable cardioverter-defibrillat or) in place Coronary artery disease involving [place] heart without angina pectoris, unspecified vessel or lesion type Hypertension, unspecified type Vitamin D deficiency disease Cardiomyopathy, unspecified type (HCC) SOB (shortness of breath) 02/22/2022 8:53 AM EDT [facility] [employer] Work Phone: End: 11-23-2020 Glucose [Mass/volume] in Serum or Plasma POCT Glucose Point of Care Testing Routine One Time for 1 Occurrences starting 11/23/2020 until 11/23/2020 [employer] Phone: Comment on above: One Time for 1 Occurrences starting 11/05 until 11/23/2020 End: 04-19-2024 NM PET/CT CARDIAC VIABILITY NM PET/CT CARDIAC VIABILITY Radiology Routine Heart disease 1 Occurrences starting 03/21/2023 until 04/19/2024 [employer] Phone: Comment on above: 1 Occurrences starting 03/21/2023 until 04/19/2024 OUTSIDE VENDOR CARDI AC OUTPATIENT EXTENDED RHYTHM RECORDING (WITHOUT TELEMETRY) OUTSIDE VENDOR CARDIAC OUTPATIENT EXTENDED RHYTHM RECORDING (WITHOUT TELEMETRY) Holter Routine Frequent PVCs Ordered: 04/26/2023 [employer] Phone: Comment on above: Ordered: 04/26/2023 Oxygen therapy [[facility] Data Set] Initiate Oxygen Therapy Protocol Respiratory Care Routine Daily until discontinued starting 11/23/2020 [employer] Phone: Comment on above: Daily until discontinued starting 2020 Phase I & II - meter ed glucose Phase I & II - metered glucose Point of Care Testing Routine As Needed until discontinued starting 11/23/2020 [employer] Phone: Comment on above: As Needed until discontinued starting End: 11-23-2020 POCT potassium POCT potassium Point of Care Testing Routine One Time for 1 Occurrences starting 11/23/2020 until 11/23/2020 [facility] [facility] [employer] Phone: Comment on above: One Time for 1 Occurrences starting 11/05 until 11/23/2020 End: 11-23-2020 POCT Protime-INR POCT Protime-INR Point of Care Testing Routine One Time for 1 Occurrences starting 11/23/2020 until 11/23/2020 [facility] [facility] Phone: Comment on above: One Time for 1 Occurrences starting 11/05 until 11/23/2020 End: 08-19-2019 Stress test, lexiscan Stress test, lexiscan Cardiac Services Routine Shortness of breath 1 Occurrences starting 08/19/2019 until 08/19/2019 [facility] Phone: Comment on above: 1 Occurrences starting 08/19/2019 until 08/19/2019 Surgical Pathology Surgical Path ology Lab Routine Release Upon Ordering for 1 Occurrences starting 11/23/2020 [facility] [facility] [employer] Phone: Comment on above: Release Upon Ordering for 1 Occurrences starting 11/23/2020 UA DIP B/O UA DIP B/O Lab R outine Dysuria Ordered: 04/26/[address] [facility] Work Phone: Comment on above: Ordered: 04/26/2023 XR Chest 1 View XR Chest 1 View Imaging STAT 12/28/2021 3:56 PM EDT [facility] Phone: [facility] Immunizations Immunization Date Immunization Notes Care Provider Fa cili 07-16-2021 COVID-19 original vaccine, age 12+ yr, monovalent (LiveStub-CNG-One - PURPLE TOP) Venus Talbert MD Work Phone: [facility] Work Phone: 06-06-2017 influenza, seasonal, injectable, preservative free Venus Talbert MD Work Phone: [facility] Work Phone: 06-06-2017 influenza virus vaccine, unspecified formulation Zeina Roca RN [facility] Payers Date Payer Category Payer Self-pay 2022 Medicare [id number] 2017 Unknown 2014 Unknown xxxxxxxxxxxx [id number] 2014 Unknown [employer] M [employer] [address] [id number] 2014-Present [phone] [address] [place] [address] [id number] [id number] 1959 Unknown [id number] 2.16.840.1.594234.3.249.13 1957 Unknown [id number] 2.16.840.1.132183.3.579.2.175 1957 Unknown [id number] 2.16.840.1.835875.3.579.2.175 1957 Unknown [id number] 2.16.840.1.010536.3.579.2.903 1957 Unknown [id number] 2.16.840.1.256577.3.579.2.903 1957 Unknown [id number] 2.16.840.1.896565.3.579.2.903 1957 Unknown [id number] 2.16.840.1.357747.3.579.2.903 1957 Unknown [id number] 2.16.840.1.556702.3.579.2.903 1957 Unknown [id number] 2.16.840.1.946185.3.579.2.903 1957 Unknown [id number] 2.16.840.1.691665.3.579.2.903 1957 Unknown [id number] 2.16.840.1.499719.3.579.2.903 1957 Unknown [id number] 2.16.840.1.922745.3.579.2.903 1957 Unknown [id number] 2.16.840.1.887263.3.579.2.593 1957 Unknown [id number] 2.16.840.1.196987.3.579.2.356 1957 Unknown [id number] 2.16.840.1.673479.3.579.2.356 1957 Unknown [id number] 2.16.840.1.634629.3.579.2.356 1957 Unknown [id number] 2.16.840.1.446544.3.579.2.356 1957 Unknown [id number] 2.16.840.1.856477.3.579.2.174 1957 Unknown [id number] 2.16.840.1.687747.3.579.2.174 1957 Unknown [id number] 2.16.840.1.157021.3.579.2.174 1957 Unknown [id number] 2.16.840.1.700711.3.579.2.174 1957 Unknown [id number] 2.16.840.1.339544.3.579.2.174 1957 Unknown [id number] 2.16.840.1.156445.3.579.2.174 1957 Unknown [id number] 2.16.840.1.309892.3.579.2.174 1957 Unknown [id number] 2.16.840.1.797559.3.579.2.174 1957 Unknown [id number] 2.16.840.1.401385.3.579.2.174 1957 Unknown [id number] 2.16.840.1.362011.3.579.2.174 1957 Unknown [id number] 2.16.840.1.802814.3.579.2.174 1957 Unknown [id number] 2.16.840.1.563140.3.579.2.174 1957 Unknown [id number] 2.16.840.1.314311.3.579.2.174 1957 Unknown [id number] 2.16.840.1.432999.3.579.2.174 1957 Unknown [id number] 2.16.840.1.299590.3.579.2.174 1957 Unknown [id number] 2.16.840.1.155260.3.579.2.174 1957 Unknown [id number] 2.16.840.1.553992.3.579.2.174 1957 Unknown [id number] 2.16.840.1.248236.3.579.2.174 1957 Unknown [id number] 2.16.840.1.441713.3.579.2.174 Unknown [id number] 2.16.840.1.989588.3.579.2.531 Unknown [id number] 2.16.840.1.059413.3.579.2.531 Social History Date Type Detail Facility Start: 09-18-2017 Tobacco smoking status KYIS Unknown if ever smoked [facility] Work Phone: Start: 1955 Sex Assigned At Not on file [facility] Work Phone: Start: 09-02-2019 End: 02-28-2022 Tobacco smoking status NHIS Never smoker [facility] Start: 09-02-2019 End: 02-28-2022 Alcohol intake Current non-drinker of alcohol (finding) [facility] Phone: Start: 10-01-2019 End: 02-28-2022 Tobacco use and exposure Never used [facility] Start: 03-04-2019 End: 03-21-2023 Alcohol intake No [facility] Start: 11-16-2021 End: 08-26-2022 Exposure to SARS-CoV-2 (event) Not sure [facility] Phone: Start: 11-27-2021 End: 08-26-2022 Alcohol intake Current drinker of alcohol (finding) [facility] Start: 11-27-2021 End: 03-21-2023 Alcohol intake [facility] Start: 12-08-2021 Gender identity Identifies as male gender (finding) [facility] Start: 12-08-2021 Sexual orientation Heterosexual (finding) [facility] National Score (1-10 0), lower number is lower risk 65 [facility] Medical Equipment Procedure Code Equipment Code Equipment Origin al Text Equipment Identifier Dates Zinactive Use Cl ip Int L Polymer Luisana Lig Hem O Luisana [id number]_[facility] Start: 11-23-2020 Zinactive Use Cl ip Int L Polymer Luisana Lig Hem O Luisana [id number] Start: 11-23-2020 Clip Int L Polym er Luisana Lig Hem O Luisana [id number]_[facility] Start: 11-23-2020 Clip Int L Polym er Luisana Lig Hem O Luisana [id number]_[facility] Start: 11-23-2020 Stent 9 X 30mm Transcarotid Enroute - Sn/A [id number]/A, [id number]_[facility] FDA Start: 12-28-2021 Use with pen to administer insulin three times daily. Start: 04-13-2023 Comment on above: Use with pen to admi nister insulin three times daily. Clinical Notes 08-12-2019 to 07-12-2023 Patient InstructionsCarolina Barger MD - 07/12/2023 10:51 AM EST Note Date & Type Note Facility 07-12-2023 Note [facility] 07-12-2023 Instructions Carolina Barger MD - 07/12/2023 11:40 AM EST Thank you for visiting the [facility] for Heart Failure at the [facility]. Here are your instructions. 1. No changes to medications. 2. Return in 6 months. Please call with questions or concerns. Office: [phone] Carolina Barger MD documented in this encounter [facility] 07-12-2023 History of Present illness Narrative Images from the original note were not included. [facility] [place] [facility] For Heart Failure SECTION OF HEART FAILURE and CARDIAC TRANSPLANT MEDICINE OUTPATIENT VISIT DATE July 12, 2023 OUTPATIENT VISIT TYPE Established Patient PRIMARY CARE PHYSICIAN: Jeff Cerda MD [address] [place] [address] CHIEF COMPLAINT: Feeling well NURSING INTAKE (Patient [...] hx CAD (mLAD stent with ISR and ETHYLENE OXIDE PANELBOARD OPERATOR distal to stent without collaterals, rPDA ETHYLENE OXIDE PANELBOARD OPERATOR with Lcx collaterals), ischemic HFrEF (13%) s/p [...] Chronic HFrEF Ischemic cardiomyopathy Wide QRS s/p CURRICULUM AND INSTRUCTION SPECIALIST-D upgrade Type II DM CKD Healing heel [...] changes to medications. Returns in September for CURRICULUM AND INSTRUCTION SPECIALIST-D clinic. Return in 6 months. I personally interviewed, confirmed and edited the above information as obtained by others I personally spent 30 minutes in total time involved in the management and care of this patient. We discussed natural history of disease, current treatment options, and future potential treatment options. We discussed diet, exercise, other non-medical management as above. Carolina Barger MD [facility] Heart [facility] Section Of Heart Failure and Cardiac Transplant Medicine [facility] [place] [facility] Desk [id number] [place] [address] documented in this encounter [facility] 06-27-2023 Evaluation note Diagnosis Research IRB [id number] CordioHearO- Primary documented in this encounter [facility]20[facility] History of Present illness Narrative* Travis Sanford RN - 06/27/2023 10:45 AM EST IRB 22-166 CORDIOHEARO - AN INTERNATIONAL, MULTICENTER, OBSERVATIONAL, SINGLE- ARM, BLINDED STUDY TOASSESS THE PERFORMANCE OF THE [facility] PI: Dr. Aba Wood Study explained/reviewed with patient and spouse. Study related follow-up requirements were discussed. Risks, benefits, alternatives, personnel, and costs of the study explained/reviewed. Patient provided informed consent for review. Study related questions were addressed. Patient declined study participation. Thanked patient and family for their time. Travis Ni RN, BSN Pager [phone] documented [facility] Instructions* Patient Instructions* Yannick uZñiga PA-C - 06/27/2023 10:27 AM EST - continue the same medications - consult with dermatology - follow-up with Dr. Barger on 07/12 with labs first documented in this encounterBl[facility]11-[facility]-2023 History of Present illness Narrative* Yannick Zuñiga PA-C - 06/27/2023 10:00 AM EST Images from the original note were not included. [facility] [place] [facility] Heart [facility] SECTION OF HEART FAILURE and CARDIAC TRANSPLANT MEDICINE OUTPATIENT VISIT DATE June 27, 2023 OUTPATIENT VISIT TYPE Established Patient PRIMARY CARE PHYSICIAN: Jeff Cerda MD [address] [place] [address] CHIEF COMPLAINT: follow-up HISTORY OF PRESENT ILLNESS: Barak Foster is a 67 year old male hx CAD (mLAD stent with ISR and ETHYLENE OXIDE PANELBOARD OPERATOR distal to stent without collaterals, rPDA ETHYLENE OXIDE PANELBOARD OPERATOR with Lcx collaterals), ischemic HFrEF (13%) s/p [...] monitor (Zio patch J2-2) - follow-up with mt in June - follow-up with Dr. Barger [...] INSULIN PEN NEEDLE UF) 31 gauge x 16 Use with pen to administerinsulin three times [...] 6.0 cm, RV moderately decreased - s/p CURRICULUM AND INSTRUCTION SPECIALIST-D upgrade (LBBB) 03/31/2023 - Warm and dry [...] 2012 - mLAD stent with ISR and ETHYLENE OXIDE PANELBOARD OPERATOR distal to stent without collaterals, rPDA ETHYLENE OXIDE PANELBOARD OPERATOR with Lcx collaterals - 03/2023: PET Viability: mild ischemia in the territory of the LAD, small scar in LAD territory - [facility] 03/28/2023: LMT normal, LAD mid ETHYLENE OXIDE PANELBOARD OPERATOR, ISR in mid, ETHYLENE OXIDE PANELBOARD OPERATOR distal to stent, LCx 50% mid, RCA diffusedisease with ETHYLENE OXIDE PANELBOARD OPERATOR small RPDA and ETHYLENE OXIDE PANELBOARD OPERATOR r-PDA - medical therapy recommended Atrial Fibrillation [...] non-medical management as above. Yannick Zuñiga PA-C [facility] For Heart [facility] Section Of Heart Failure and Cardiac Transplant Medicine [facility] [place] [facility] Desk J3-4 [address] [address] documented in this encounterBlanchard [facility]11-10-2023 History and physical note * Anamaria Ta, SUDHAKAR.HEEL GOUGER - 06/16/2023 12:00 PM EST Yrisruddy Rutherford Iam [address] [id number] HPI: Mr. Foster is a 67 yo male with a history of CAD (mLAD stent with ISR and ETHYLENE OXIDE PANELBOARD OPERATOR distal to stent without collaterals, rPDA ETHYLENE OXIDE PANELBOARD OPERATOR with Lcx collaterals), ischemic HFrEF (13%) s/p [...] intolerance or hyperlipemia. History by Anamaria Ta APRN.HEEL GOUGER Physical Examination: BP 112/74 Pulse (!) 51 [...] edema Neuro: Oriented x3, alert, cooperative, Studies: CURRICULUM AND INSTRUCTION SPECIALIST-D EVALUATION: 06/16/2023 PRESENTS FOR: AF, DCC scheduled [...] Date Value 04/13/2023 45 Anamaria Ta DNP, PIPELINE TECHNICIAN Desk J1-1 [id number] [facility] [place] [address] phone [phone] fax [facility] Cardiovascular Medicine, Section of Cardiac Imaging [facility] [place] documented in this encounterBlanchard [facility]11-09-[facility] History of Present illness Narrative* Anamaria [...] discussed with Physician, nurse practitioner or Physician construction management assistant upon discharge Instructions for transmitting EKG to Monitoring Center 3 month follow up instructions Contact number for information and questions Patient Evaluation: Verbalizes understanding Follow Up Plan: Follow up as directed by MD. Supplemental Material Given: Written Material Instructed By Anamaria Field RN. In Department of CARDIOLOGY. documented in this encounterBlanchard [facility]11-01-2023 Miscellaneous Notes* Telephone Encounter - Sherice Camargo RN - 06/07/2023 4:56 PM EDT Called patient to explain rationale behind [facility] follow-up appointment. If needed, also recommended establishing care with Heart Failure prior to 6- month visit in [facility]. No answer, patient's mailbox full. Called patient's , no answer, message left with call back requested if questions. Sherice Camargo RN documented in this encounterBlanchard Valley [facility] System10-18-2023 Miscellaneous Notes* Telephone Encounter - Ellie Julian [...] apixaban. Chandni Vitale MD documented in this encounterBlanchard Valley Health System10-14-2023 NoteHNO ID: [id number] Author: Note, Interface Service: ? Author Type: ? Type: Progress Notes Filed: 05/20/2023 2:18 AM Note Text: Epic Scheduled Downtime: 05/20/2023 1:00:00 AM to 05/20/2023 1:28:00 [facility]10-10-2023 Miscellaneous Notes* Telephone Encounter - Tisha Rosado RN - 05/16/2023 10:40 AM EDT Prior authorization complete. Patient aware and will fill rx. Tisha Beckman RN documented in this encounterBlanchard Valley Health System09-20-2023 [facility]09-20-2023 [facility]09-20-[facility] History of Present illness Narrative* Rosa M Davila - 04/26/2023 11:31 AM EDT EVENT MONITOR DISPOSABLE PATCH INSTRUCTIONS [id number] Skin prepped and cleansed with alcohol Patch secured to prepped area Monitor Activated Serial #: [id number] Patient Instructed: Prescribed order timeframe Bathing guidelines Usage of event button and diary documentation Return of monitor at the end of prescribed order Call with problems [phone] or [phone]. [phone] Patient expresses a good understanding of instructions Rosa M De Anda documented in this encounterBlanchard Valley Health System09-20-2023 [facility]09-[facility] Instructions* Patient Instructions* Yannick Zuñiga PA-C - [...] Dr. Barger on 07/12 documented in this encounterBlanchard Valley Health System09-20-2023 History of Present illness Narrative* Yannick Zuñiga PA-C - 04/26/2023 9:13 AM EDT Images from the original note were not included. [facility] [place] [facility] For Heart Failure SECTION OF HEART FAILURE and CARDIAC TRANSPLANT MEDICINE OUTPATIENT VISIT DATE April 26, 2023 OUTPATIENT VISIT TYPE Established Patient PRIMARY CARE PHYSICIAN: Franck Terrell II, MD [address] [place] [address] CHIEF COMPLAINT: hospital follow-up HISTORY OF PRESENT ILLNESS: Barak Foster is a 67 year old male hx CAD (mLAD stent with ISR and ETHYLENE OXIDE PANELBOARD OPERATOR distal to stent without collaterals, rPDA ETHYLENE OXIDE PANELBOARD OPERATOR with Lcx collaterals), ischemic HFrEF (13%) s/p [...] consulted and he underwent device upgrade to CURRICULUM AND INSTRUCTION SPECIALIST-D. Thereafter hewas diuresed and transitioned to torsemide [...] 6.0 cm, RV moderately decreased - s/p CURRICULUM AND INSTRUCTION SPECIALIST-D upgrade (LBBB) 03/31/2023 - Warm and dry [...] 2012 - mLAD stent with ISR and ETHYLENE OXIDE PANELBOARD OPERATOR distal to stent without collaterals, rPDA ETHYLENE OXIDE PANELBOARD OPERATOR with Lcx collaterals - 03/2023: PET Viability: mild ischemia in the territory of the LAD, small scar in LAD territory - [facility] 03/28/2023: LMT normal, LAD mid ETHYLENE OXIDE PANELBOARD OPERATOR, ISR in mid, ETHYLENE OXIDE PANELBOARD OPERATOR distal to stent, LCx 50% mid, RCA diffusedisease with ETHYLENE OXIDE PANELBOARD OPERATOR small RPDA and ETHYLENE OXIDE PANELBOARD OPERATOR r-PDA - medical therapy recommended PVC's - [...] other non-medical management as above. Yannick Monte[facility] Section Of Heart Failure and Cardiac Transplant Medicine Heart and Vascular [place] [facility] Desk [phone] [phone] ADDENDUM Component Latest Ref Rng & Units [...] 5,066 (H) 6,843 (H) documented in this encounterBlanchard Valley Health System09-13-2023 Miscellaneous Notes* Telephone Encounter - Zeina Roca [...] pts Name & verified documented in this encounterBlanchard Valley Health System09-08-2023 Miscellaneous Notes* Telephone Encounter - Madina Kenney RN - 04/14/2023 5:49 PM EDT Received call back from Allan Oliva with Clinical Cards who advised holding the insulin for blood sugar less than 110. He also suggested I attempt to call Endocrinology semiconductor wafers etcher stripper for a scale /parameters. Received call back from Zulema Daniel (pgr. [phone]), who happened to be aware of patient [...] number to call back. Madina Kenney RN [facility] * Telephone Encounter - Madina Kenney RN - 04/14/2023 3:21 PM EDT [facility] Contact Center Inbound Phone Encounter DATE of SERVICE: 04/14/2023 TIME of SERVICE: 3:21 PM Status: Non-urgent, needs attention Service/Provider: Clinical Cardiology Kristine Chang MD Reason for call: Other Issue, blood glucose parameters Contact information: [phone] Resolution: Sent to [facility], paged high priority Comments: Received call from [...] know for the future. Madina Kenney RN, [facility] Resource Center Date of Resolution: 04/14/2023 Time of Resolution 3:21 PM documented in this encounterBlanchard Valley Health System09-08-2023 Miscellaneous Notes* Telephone Encounter - Cain Higginbotham [...] about how to take your medications? YES, Humaron, patient needs clarification if should still give 24units with meals if current glucose is 69. Will hold off administering until speaks with cardiac nurse. 9. Do you have a doctor s appointment scheduled or is someone working on getting you a follow-up appointment? YES Patient contacted - post discharge survey completed - closing statement given. Routed message to [facility] Patient verified name and date of . Cain Higginbotham RN documented in this encounterBlanchard Valley Health System09-08-2023 [facility] History of Present illness Narrative* Mikael Henry, [facility] - 04/14/2023 9:45 AM EDT TRANSITION CARE MANAGEMENT (TCM) HEART FAILURE PHARMACY CONTACT Provider Action/FYI: TCM Medication Reconciliation completed for patient. See medication list table below for details. ACTION REQUIRED: Patient counseled on transferring active eRX from [facility] pharmacy to local pharmacy after initial fills [...] oz) Patient was sent a message via [employer] including the link to the [facility] Heart Failure education video: N/A-mychart not active Initial contact with patient post discharge, spoke to spouse, Leann,, and verified that any applicable caregiver is active in patient's medical care. Patient identified by name and . Summary: -Pt discharged from [facility] on 04/13/23. -Medication review done Full medication review completed Patient Concerns: Review and discussion of medications with spouse, Leann, as outlined in medication table below. Source of medication information obtained from Medication list. Dispense records from pharmacy also utilized to obtain additional medication fill history. Pt filled via [facility] bedside delivery pharmacy team prior to discharge. [...] (HCC) Active Problems: Coronary artery disease involving [place] heart without angina pectoris Chronic systolic HF (heart failure) (HCC) Cardiac resynchronization therapy defibrillator (CURRICULUM AND INSTRUCTION SPECIALIST-D) in place Cardiomyopathy, ischemic Lower limb ulcer, heel or midfoot, right, with fat layer exposed (HCC) Obesity, Class II, BMI 35-39.9 Diabetic foot infection (HCC) Resolved Problems: * No resolved hospital problems. * Operations Performed While in the Hospital: None Important Tests/Procedures: CURRICULUM AND INSTRUCTION SPECIALIST-D upgrade (new wire place in your ICD) Summary of What Happened When in the Hospital: You presented to [facility] on 03/30/2023 Medication Reconciliation: Legend: Stopped, New, Changed, Added to list Medication List Medication Directions Comments Action/Plan allopurinol (ZYLOPRIM) 100 mg tablet Take a half tablet by mouth once daily. Pick these up at [facility] on pharmacy dispense records with recent fill hx Patient reportedly taking as prescribed without any issues Reviewed change Discontinued: 04/13/2023 10:02 AM CYLINDER HONER dose amoxicillin-clavulanic acid (AUGMENTIN) 500-125 mg per tablet Take 1 tablet by mouth every 8 hours.Pick these up at [facility] on pharmacy dispense records with recent fill hx Patient reportedly taking as prescribed without any issues With food Obtain refills from provider- if duration is > 30 days Discontinued: 04/13/2023 10:02 AM D/c CYLINDER HONER Reviewed d/c atorvastatin (LIPITOR) 80 mg tablet Take 1 tablet by mouth once daily. on pharmacy dispense recordswith recent fill hx Patient reportedly taking as prescribed without any issues Discontinued: 04/13/2023 10:02 AM D/c CYLINDER HONER Metoprolol prescribed at discharge Reviewed d/c clopidogrel [...] back and forth between 20mg and 30mg CYLINDER HONER for last 6 months- has PCP appt upcoming - currently at 20mg Patient reportedly taking as prescribed without any issues empagliflozin (JARDIANCE) 10 mg tablet Take 1 tablet by mouth once daily. Pick these up at [facility] on pharmacy dispense records with recent [...] any issues Discontinued: 04/13/2023 10:02 AM D/c CYLINDER HONER Reviewed d/c insulin detemir U-100 (LEVEMIR FLEXPEN) 100 unit/mL (3 mL) injection pen Inject 30 Units subcutaneously every morning. Pick these up at [facility] on pharmacy dispense records with recent fill hx Patient reportedly taking as prescribed without any issues Replaces lantus Discontinued: 04/13/2023 10:02 AM D/c CYLINDER HONER Levemir prescribed at discharge Reviewed d/c insulin lispro (HUMALOG KWIKPEN) 100 unit/mL Inject 24 Units subcutaneously with MEALS. Pick these up at [facility] on pharmacy dispense records with recent [...] three times daily. Pick these up at [facility] on pharmacy dispense records with recent [...] mouth twice daily. Pick these up at [facility] on pharmacy dispense records with recent [...] you become . Pick these up at [facility] on pharmacy dispense records with recent fill hx Entresto was previously on active med list CYLINDER HONER Patient reportedly taking as prescribed without any issues Confrimed was on before Discontinued: 04/13/2023 10:02 AM D/c CYLINDER HONER Reviewed d/c torsemide (DEMADEX) 20 mg tablet Take 4 tablets by mouth twice daily. [facility] these up at [email or web address] on pharmacy dispense records with recent fill hx Patient reportedly taking as prescribed without any issues Can move up second dose earlier in day prn Has scale Discontinued: 04/13/2023 10:02 AM CYLINDER HONER dosing Discontinued: 04/13/2023 10:02 AM D/c CYLINDER HONER Reviewed d/c Preferred pharmacy: e- [facility]/pharmacy #[id number] [place] [address] - [address] [place] [address] [address] [id number] [address] [facility] [id number] [facility] [address] [place] [id number] Estimated Creatinine Clearance: 37 mL/min (A) (based on SCr of 2.43 mg/dL (H)). Estimated Glomerular Filtration Rate (mL/min/1.73m ) Date Value 04/13/2023 29 (L) Additional follow up: Next 5 Appointments Date and Time Provider Department Dept Phone 04/26/2023 10:00 AM Yannick Zuñiga [facility] [phone] 05/12/2023 9:45 AM DEVICE [facility] [phone] 07/12/2023 11:15 AM Main, Nurse Card Chf; JolantaDavin mgmarleny C[facility] CHF MAIN [phone] Interventions Made: Patient education/Medication counseling, Adherence counseling, and AVS medication list discrepancy Pharmacist Recommendations Made Lab request/Therapeutic drug monitoring Care Coordination: Escalated to specialist provider Time spent on patient: 45-60 minutes MIKAEL HENRY, PHARMACIST, [facility] Pharmacy Transitional Care Management April 14, 2023 3:52 PM documented in this encounterBlanchard Valley Health System09-07-2023 [facility]-2023 [facility]09-07-2023 [facility]09-06-2023 [facility]09-05-2023 [facility]09-04-2023 [facility]09-04-2023 [facility]09-03-2023 [facility] 04-08-2023 [facility]09-01-2023 [facility]08-31-2023 [facility]-30-2023 [facility]-30-2023 [facility]08-30-2023 [facility]08-29-2023 [facility]08-28-2023 [facility]08-27-2023 [facility] 04-01-2023 [facility]08-25-2023 [facility]08-25-2023 [facility]08-24-2023 [facility]08-23-2023 [facility]08-22-2023 [facility]08-21-2023 [facility]08-20-2023 [facility]08-19-2023 [facility] 03-24-2023 [facility]08-17-2023 [facility]08-17-2023 [facility]08-17-2023 [facility]08-16-2023 [facility]08-15-2023 [facility]08-14-2023 [facility]08-14-2023 [facility]05-31-2023 History of Present illness Narrative* Rogerio Beni Gruber, [facility] - 01/04/2023 8:00 AM EDT [place] Medication Management ANTICOAGULATION Referring Provider: Dr Ayde [...] or extra doses of warfarin. Went to [facility] for gout flare-up, was given [...] PharmD 01/04/2023 8:23 AM documented in this encounterSENT[facility] Work Phone: [phone]) 630-227105-31-2023 Hospital Discharge instructions* Patient Instructions* Rogerio Gruber [...] to your next visit. documented in this encounterSENTARA [facility] Work Phone: [phone]) 287-762304-19-2023 History of Present illness Narrative* Rogerio Gruber RPH - 11/23/2022 8:00 AM EDT [facility] Medication Management ANTICOAGULATION Referring Provider: Dr Niocle GOAL INR: 2.0-3.0 TODAY'S INR: 2.4 WARFARIN [...] PharmD 11/23/2022 8:09 AM documented in [facility] encounterR[facility] [employer] Phone: [phone] 839-824504-19-2023 Hospital Discharge instructions* Patient Instructions* Rogerio Gruber [...] to your next visit. documented in this encounterCLINCH VALLEY MED[facility] CENTERFriendsee Phone: [phone]) 313-438503-22-2023 History of Present illness Narrative* Rogerio Gruber RPH - 10/26/2022 8:00 AM EDT [facility] Medication Management ANTICOAGULATION Referring Provider: Dr Nicole GOAL INR: 2.0-3.0 TODAY'S INR: 3.1 [...] 10/26/2022 9:35 AM documented in this encounterBON [employer] Phone: [phone] Hospital Discharge instructions* Patient Instructions* Rogerio Gruber [...] to your next visit. documented in this encounterCLINCH VALLEY MEDICAL CENTERFriendsee Phone: [phone]) 922-367902-15-2023 History of Present illness Narrative* Rogerio Gruber RPH - 09/21/2022 8:00 AM EST [facility] Medication Management ANTICOAGULATION Referring Provider: Dr [...] PharmD 09/21/2022 8:07 AM documented in this encounterCLINCH VALLEY MEDICAL CENTERFriendsee Phone: [phone]) 415-415802-15-2023 Hospital Discharge instructions* Patient Instructions* Rogerio Gruber RPH - 09/21/2022 8:00 AM EST Continue current dose of warfarin as instructed on dosing calendar provided. Continue to monitor urine and stool for signs and symptoms of bleeding. Please notify the clinic of any medication changes. Kindly notify the clinic if you are unable to make to your next appointment. documented in this encounterBON MILLS-PENINSULA MEDICAL CENTERFORMA [employer] Work Phone: [phone]) 667-817101-21-2023 Evaluation + Plan note* Assessment & Plan Note - Shaahb Buckley MD - 08/27/2022 8:24 AM ESTAssociated [...] the patient should seek attention at our [facility] emergency room for neuro rescue. I [...] carotid duplex sonography and a clinical visit. [id number] Miscellaneous Notes* Assessment & Plan Note - [...] the patient should seek attention at our [facility] emergency room for neuro rescue. I [...] and a clinical visit. documented in this [id number] History of Present illness Narrative* Shahab Buckley [...] content normal. The note was dictated using [employer] dictation system. The voice recognition software is inherently subject to errors including those of syntax and sound- alike substitutions which may escape proofreading. In such instances, original meaning may be extrapolated by contextual derivation. documented in this [id number] Instructions* Patient Instructions* Sophia Gomes MA - 08/26/2022 3:26 PM EST How to contact your Care Team: Provider: MD Kelle oHgan CNP Jill Bender, PA Nurse: Angeles Samano RN To reschedule office appointments call Scheduling [phone] In case of an emergency please call 911. When in need of refills please call the phone number listed above. Please include medication name, pharmacy name and specify 30 or 90 day supply Please check with your pharmacy within 24 hours of your request for refill. You must follow up as directed to continue current refills. Thank you! documented in this [id number] History of Present illness Narrative* Rogerio Gruber, [facility] - 08/24/2022 8:00 AM EST [facility] Medication Management ANTICOAGULATION Referring Provider: Dr Nicole [...] PharmD 08/24/2022 8:28 AM documented in this encounterCLINCH VALLEY MEDICAL CENTERFriendsee Phone: [phone]) [phone] Hospital Discharge instructions* Patient Instructions* Rogerio Gruber RPH - 08/24/2022 8:00 AM EST Decrease current dose of warfarin as instructed on dosing calendar provided. Continue to monitor urine and stool for signs and symptoms of bleeding. Please notify the clinic of any medication changes. Kindly notify the clinic if you are unable to make to your next appointment. documented in this encounterCLINCH VALLEY MEDICAL CENTERFriendsee Phone: [phone]) 475-837712-21-2022 History of Present illness Narrative* Rogerio Gruber RPH - 07/27/2022 8:00 AM EST [facility] Medication Management ANTICOAGULATION Referring Provider: Dr [...] PharmD 07/27/2022 8:21 AM documented in this encounterCLINCH VALLEY MEDICAL CENTERFriendsee Phone: [phone] Hospital Discharge instructions* Patient Instructions* Rogerio Gruber RPH - 07/27/2022 8:00 AM EST Decrease current dose of warfarin as instructed on dosing calendar provided. Continue to monitor urine and stool for signs and symptoms of bleeding. Please notify the clinic of any medication changes. Kindly notify the clinic if you are unable to make to your next appointment. documented in this encounterCLINCH VALLEY MEDICAL CENTERFriendsee Phone: [phone] History of Present illness Narrative* Rogerio Gruber RPH - 06/01/2022 8:00 AM EDT [facility] Medication Management ANTICOAGULATION Referring Provider: Dr [...] PharmD 06/01/2022 8:22 AM documented in this encounterSENT[facility] Work Phone: [phone] Hospital Discharge instructions* Patient Instructions* Rogerio Gruber RPH - 06/01/2022 8:00 AM EDT Decrease current dose of warfarin as instructed on dosing calendar provided. Continue to monitor urine and stool for signs and symptoms of bleeding. Please notify the clinic of any medication changes. Kindly notify the clinic if you are unable to make to your next appointment. documented in this encounterSENTARA [facility] Work Phone: [phone]) 694-278009-21-2022 History of Present illness Narrative* Rogerio Gruber RPH - 04/27/2022 8:00 AM EDT [facility] Medication Management ANTICOAGULATION Referring Provider: Dr [...] PharmD 04/27/2022 8:24 AM documented in this encounterCARIL[facility] [employer] Work Phone: [phone] Hospital Discharge instructions* Patient Instructions* Rogerio Gruber RPH - 04/27/2022 8:00 AM EDT Increase current dose of warfarin as instructed on dosing calendar provided. Continue to monitor urine and stool for signs and symptoms of bleeding. Please notify the clinic of any medication changes. Kindly notify the clinic if you are unable to make to your next appointment. documented in this encounterFRAMINGHAM UNION HOSPITALPagPop Phone: [phone]) [phone] History of Present illness Narrative* Rogerio Gruber RPH - 03/30/2022 8:00 AM EDT [facility] Medication Management ANTICOAGULATION Referring Provider: Dr [...] PharmD 03/30/2022 8:13 AM documented in this encounterSENT[facility] Work Phone: [phone] Hospital Discharge instructions* Patient Instructions* Rogerio Gruber RPH - 03/30/2022 8:00 AM EDT Continue current dose of warfarin as instructed on dosing calendar provided. Continue to monitor urine and stool for signs and symptoms of bleeding. Please notify the clinic of any medication changes. Kindly notify the clinic if you are unable to make to your next appointment. documented in this encounterRIVERSIDE [facility] [employer] Phone: [phone]) 473-468008-10-2022 History of Present illness Narrative* Rogerio Gruber RPH - 03/16/2022 8:20 AM EDT [facility] Medication Management ANTICOAGULATION Referring Provider: Dr [...] PharmD 03/16/2022 8:35 AM documented in this encounterCLINCH VALLEY MEDICAL CENTERFriendsee Phone: [phone] Hospital Discharge instructions* Patient Instructions* Rogerio Gruber RPH - 03/16/2022 8:20 AM EDT Increase current dose of warfarin as instructed on dosing calendar provided. Continue to monitor urine and stool for signs and symptoms of bleeding. Please notify the clinic of any medication changes. Kindly notify the clinic if you are unable to make to your next appointment. documented in this encounterCARILION GILES [facility] [employer] Phone: [phone] History of Present illness Narrative* Rogerio Gruber RPH - 03/02/2022 8:00 AM EDT [facility] Medication Management ANTICOAGULATION Referring Provider: Dr [...] Accepted: 2 Time Spent (min): 20 Rogerio Gruber, Melania 03/02/2022 8:13 AM documented in this encounterSENT[facility] Work Phone: [phone]) 246-930807-27-2022 Hospital Discharge instructions* Patient Instructions* Rogerio Gruber RPH - 03/02/2022 8:00 AM EDT Increase current dose of warfarin as instructed on dosing calendar provided. Continue to monitor urine and stool for signs and symptoms of bleeding. Please notify the clinic of any medication changes. Kindly notify the clinic if you are unable to make to your next appointment. documented in this encounterRIVERSIDE [facility] [employer] Phone: [phone]) 280-681907-19-2022 History of Present illness Narrative* Marion Bell RP - 02/22/2022 8:20 AM EDT [facility] Medication Management ANTICOAGULATION Referring Provider: Dr [...] Bell R.Ph., 02/22/2022,10:21 AM documented in this encounterCARILION [facility] [employer] [facility] Phone: [phone] Hospital Discharge instructions* Patient Instructions* Marion Bell RPH - 02/22/2022 8:20 AM EDT Please increase your dosing to take 1/2 tablet (1.25mg) on Sundays and and 1 tablet(2.5mg) all other days. Continue to monitor for signs of bleeding. Return to coumadin clinic in 8 days. documented in this encounterFRAMINGHAM UNION HOSPITALPagPop Phone: [phone]) 923-182607-09-2022 Evaluation + Plan note* Assessment & Plan [...] infarction and high intensity statin therapy follows [place] [employer] guidelines. [id number] Miscellaneous Notes* Assessment & Plan Note - [...] infarction and high intensity statin therapy follows [place] [employer] guidelines. documented in this [id number] History of Present illness Narrative* Shahab Buckley [...] infarction and high intensity statin therapy follows [place] [employer] guidelines. Barak Foster 1955 66 [...] or hematoma. The note was dictated using [employer] dictation system. The voice recognition software is inherently subject to errors including those of syntax and sound- alike substitutions which may escape proofreading. In such instances, original meaning may be extrapolated by contextual derivation. documented in this [id number] Instructions* Patient Instructions* Sophia Gomes MA - 02/11/2022 3:42 PM EDT How to contact your Care Team: Provider: MD Kelle Hogan CNP Jill Bender, PA Nurse: Angeles Samano RN To reschedule office appointments call Scheduling [phone] In case of an emergency please call 911. When in need of refills please call the phone number listed above. Please include medication name, pharmacy name and specify 30 or 90 day supply Please check with your pharmacy within 24 hours of your request for refill. You must follow up as directed to continue current refills. Thank you! documented in this [id number] History of Present illness Narrative* Raffy Richardson, [facility] - 02/03/2022 7:40 AM EDT [facility] Medication Management ANTICOAGULATION Referring Provider: Dr. Ayde [...] Raffy Richardson RPH, PharmD documented in this encounterSENT[facility] Work Phone: [phone]) [phone] Hospital Discharge instructions* Patient Instructions* Raffy Richardson [...] to your next appointment. documented in this encounterSENTARA [facility] Work Phone: [phone]) [phone] History of Present illness Narrative* Raffy Richadrson RPH - 01/27/2022 8:00 AM EDT [facility] Medication Management ANTICOAGULATION Referring Provider: Dr. [...] Raffy Richardson RPH, PharmD documented in [facility] Work Phone: 1(665) [phone] Hospital Discharge instructions* Patient Instructions* Raffy Richardson [...] to your next appointment. documented in this [facility] Work Phone: 1(617) 356-462806-16-2022 History of Present illness Narrative* Raffy Richardson RPH - 01/20/2022 7:40 AM EDT [facility] Medication Management ANTICOAGULATION Referring Provider: Dr. [...] Raffy Richardson RP, PharmD documented in this encounterCLINCH VALLEY MED[facility] CENTERFORMA Therapeutics Work Phone: [phone]) 365-771806-16-2022 Hospital Discharge instructions* Patient Instructions* Raffy Richardson RPH - 01/20/2022 7:40 AM EDT Decrease previous [...] to your next appointment. documented in this encounterCLINCH VALLEY MEDICAL CENTERFriendsee Phone: 1([phone]) 456-276306-09-2022 History of Present illness Narrative* Raffy Richardson RPH - 01/13/2022 7:40 AM EDT [facility] Medication Management ANTICOAGULATION Referring Provider: Dr. [...] Raffy Richardson RPH, PharmD documented in this encounterFRAMINGHAM UNION [email or web address] [facility] Phone: 1([phone] 620-871706-09-2022 Hospital Discharge instructions* Patient Instructions* Raffy Richardson [...] to your next appointment. documented in this encounterCLINCH VALLEY MED[facility]ENTERFORMA [facility] Work Phone: 1([phone]) 737-407606-03-2022 Hospital Discharge instructions* Instructions* Lonnie Hart MD [...] sent through Care Everywhere. * Arm Pain (Uzbek) * DVT (Deep Vein Thrombosis): General Info (Uzbek) documented in this encounterFRAMINGHAM UNION HOSPITALPagPop Phone: 1(142) 426-486306-02-2022 History of Present illness Narrative* Raffy Richardson RPH - 01/06/2022 7:40 AM EDT [facility] Medication Management ANTICOAGULATION Referring Provider: Dr. [...] warfarin. As discussed during his last appointment, Barak had a CT scan of the neck in [place] per Dr. Buckley which showed a blocked [...] follow up visit with Dr. Buckley in [facility] . No change in other maintenance medications [...] Raffy Richardson RPH, PharmD documented in this encounterCAR[facility] [employer] [facility] Phone: 1([phone]) [phone] Hospital Discharge instructions* Patient Instructions* Raffy Richardson [...] to your next appointment. documented in this encounterCLINCH VALLEY MEDICAL CENTERFalco [employer] [facility] Phone: 1([phone]) 422-998405-25-2022 Hospital course Narrative* Mary Jane Rodriguez PA-C - 12/29/2021 9:46 AM EDT DISCHARGE SUMMARY Patient: Barak Foster Date of : 1955 Site: [facility] Provider: Jeff Cerda MD Admit Date: 12/28/2021 [...] Family Provider: Jeff Cerda MD, Address: [address] [facility] [address] Follow Up: Shahab Buckley MD [address] [place] [id number] Follow up on 02/11/2022 3rd floor MOB @ 3:00 pm -please arrive 15 min early SCAN to be performed prior to follow up Jeff Cerda MD [address] [place] [id number] Follow up 1-2 weeks hospital follow up Additional Information: Echocardiogram ordered with results pending prior to discharge Patient instructions, including activity, were given to the patient/family at discharge. Please seethe After Visit Summary in the electronic medical record for details. Time spent on discharge: < 30 minutes Completed by: Mary Jane Rodriguez PA-C on 12/29/21, 10:06 AM documented in this [id number] History of Present illness Narrative* Shante Troncoso - 12/29/2021 9:45 AM EDT Spiritual Care Progress Note Completed by: Shante Troncoso Person(s) Present During this Visit: Patient Time Spent in Direct Patient Care: 15 Narrative: While rounding housing assistant introduced self and role. Information regarding pastoral care services and how to contact was provided. No family present. The Pastoral Care team will remain available to support patient as needed/requested. Patients Response to Pastoral Care: Appeared to be not engaged Planning for Future Visits: JOSE F Troncoso MDiv Staff Bolt Maker Pastoral Care Department [facility] [phone] on-call [phone] office 12/29/21 7372 Visit Background Visit With Patient Visit By Staff Bolt Maker Visit Progression Introduction Visit Requested By Bolt Maker Initiated Visit Source Bolt Maker Initiated Visit Type Inpatient;Rounding Visit Circumstances and Events Routine Visit Visit Length (minutes) 15 Patient's Response to Pastoral Care Appeared to be not engaged Visit Planning PRN Spiritual Assessment Not assessed during visit Anabaptist Assessment Not assessed during this visit Family assessment provided? Not assessed during this visit documented in this [id number] Note* Quick Note - Yanelis Blackmon RN - 12/29/2021 9:14 AM EDT Stroke cart post op assessment complete. [id number] Miscellaneous Notes* Quick Note - Yanelis Blackmon [...] from the NIH submission data from the [facility] trial was explained to the patient. We offered the alternatives of carotid endarterectomy and transfemoral stenting. Becauseof the low morbidity and mortality the patient elected to go with the post approval trial sponsoredby the [facility] and [facility] for transcarotid arterial revascularization. PROCEDURE: The [...] occlusive disease. The note was dictated using [employer] dictation system. The voice recognition software is inherently subject to errors including those of syntax and sound- alike substitutions which may escape proofreading. In such instances, original meaning may be extrapolated by contextual derivation. * Brief Op Note - Shahab Buckley MD - 12/28/2021 11:58 AM EDT Brief Post Operative Note Patient Name: Barak oFster : 1955 (66 y.o.) Date of Service: 12/28/2021 CSN: [id number] Procedure(s): TRANSCAROTID ARTERY REVASCULARIZATION ANGIOGRAPHY IMAGING Pre-Operative Diagnoses: * Symptomatic right carotid stenosis Post-Operative Diagnoses: * Symptomatic right carotid stenosis * Symptomatic stenosis of right carotid artery [I65.21] Surgeon(s) and Role: * Shahab Buckley MD - Primary Anesthesiologist: Tin Lei MD TRANSVERSE ABDOMINAL MUSCLE SURGEON: Cheyenne Brooks CRNA Student Nurse Tree Killer: [facility] [employer] Specialists: Yanet Warren, TECHNOLOGIST Scrub Person: Osiris Chapman, TECHNOLOGIST; Miko Grimes TECHNOLOGIST Timber Trimmer Orientee: Celeste Beltran RN Timber Trimmer Preceptor: Kathi Medina RN Scrub Person Preceptor: ST Davi Scrub Person Orientee: Velma Palumbo RN ORKip PRECEPTOR: Katya Dyer Operative findings: 99% stenosis now completely corrected with CYLINDER HONER/stent right internal carotid artery Intra and immediate post-operative complications: none Type of anesthesia used: General anesthesia Estimated blood loss: 20 mL Implant(s): Implant Name Type Inv. Item Serial No. Sectionizer Lot No. LRB No. Used Action STENT 9 X 30MM TRANSCAROTID ENROUTE - SN/A Stent STENT 9 X 30MM TRANSCAROTID ENROUTE N/A [facility] [id number] Right 1 Implanted Wound(s): Wound 12/28/21 1 Surgical Wound Neck Right (Active) Wound Closure Sutures 12/14/21 0002 Wound 12/28/21 2 Surgical Wound Groin Anterior;Right (Active) Wound Closure Sutures;Surgical Adhesive 12/14/21 0002 Shahab Buckley MD 12/28/2021 3:09 PM documented in this [id number] Note* Plan of Care - Belia Ponce [...] Absence of pressure ulcer Outcome: Not Met [id number] Consult note* Tracy Brian MD - 12/28/2021 5:57 PM EDTAssociated Order(s): IP CONSULT TO CARDIOLOGY Please see consult note from today [facility] Work Phone: [phone] Consult note* Tracy Brian MD - 12/28/2021 5:57 PM EDTAssociated Order(s): IP CONSULT TO CARDIOLOGY Please see consult note from today * Tracy Brian MD - 12/28/2021 5:05 PM EDT General Cardiology Inpatient Consult Heart & Vascular [facility] 12/28/2021 Tracy Brian MD [facility] Patient: Barak Foster Date of : [...] plan for further details. Tracy Brian MD [facility] Non-Invasive Cardiology [facility] Heart and Vascular Subjective Reason for Consultation: [...] thrombus and has been on Coumadin since 2012. The patient reports that his nausea has [...] results found for: NTPROBNP documented in this [id number] Consult note* Tracy Brian MD - 12/28/2021 5:05 PM EDT General Cardiology Inpatient Consult Heart & Vascular [facility] 12/28/2021 Tracy Brian MD [facility] Patient: Barak Foster Date of : [...] plan for further details. Tracy Brian MD [facility] Non-Invasive Cardiology [facility] Subjective Reason for Consultation: [...] 33 12/28/2021 No results found for: NTPROBNP [id number] Note* Quick Note - Tiffani Hills RN - 12/28/2021 4:40 PM EDT Notified [facility] of K+ 5.2 and other lab values. [id number] Attending History and physical note* Shahab Buckley MD - 12/28/2021 11:58 AM EDT INTERVAL HISTORY AND PHYSICAL Patient Name: Barak Foster Admit Date: [id number] MR #: [id number] : 1955 The H&P has been reviewed [...] based on the data from the [place] Stroke and Carotid Endarterectomy Trial. The patient [...] doses of a statin medication simvastatin. Barak Fsoter 1955 66 y.o. male who presents to [...] content normal. The note was dictated using [employer] dictation system. The voice recognition software is inherently subject to errors including those of syntax and sound- alike substitutions which may escape proofreading. In such instances, original meaning may be extrapolated by contextual derivation. [id number] Note* Op Note - Shahab Buckley MD [...] with the post approval trial sponsoredby the [facility] and [facility] for transcarotid arterial revascularization. PROCEDURE: The [...] occlusive disease. The note was dictated using [employer] dictation system. The voice recognition software is inherently subject to errors including those of syntax and sound- alike substitutions which may escape proofreading. In such instances, original meaning may be extrapolated by contextual derivation. [id number] Note* Brief Op Note - Shahab Buckley MD - 12/28/2021 11:58 AM EDT Brief Post Operative Note Patient Name: Barak Foster : 1955 (66 y.o.) Date of Service: 12/28/2021 CSN: [id number] Procedure(s): TRANSCAROTID ARTERY REVASCULARIZATION ANGIOGRAPHY IMAGING Pre-Operative Diagnoses: * Symptomatic right carotid stenosis Post-Operative Diagnoses: * Symptomatic right carotid stenosis * Symptomatic stenosis of right carotid artery [I65.21] Surgeon(s) and Role: * Shahab Buckley MD - Primary Anesthesiologist: Tin Lei MD TRANSVERSE ABDOMINAL MUSCLE SURGEON: Cheyenne Brooks CRNA Student Nurse Tree Killer: [facility] Cad[employer] Specialists: Yanet Warren, TECHNOLOGIST Scrub Person: Osiris Chapman, TECHNOLOGIST; Miko Grimes, TECHNOLOGIST Timber Trimmer Orientee: Celeste Beltran RN Timber Trimmer Preceptor: Kathi Medina RN Scrub Person Preceptor: ST Davi Scrub Person Orientee: Velma Palumbo RN ORKip PRECEPTOR: Katya Dyer Operative findings: 99% stenosis now completely corrected with CYLINDER HONER/stent right internal carotid artery Intra and immediate post-operative complications: none Type of anesthesia used: General anesthesia Estimated blood loss: 20 mL Implant(s): Implant Name Type Inv. Item Serial No. Sectionizer Lot No. LRB No. Used Action STENT 9 X 30MM TRANSCAROTID ENROUTE - SN/A Stent STENT 9 X 30MM TRANSCAROTID ENROUTE N/A [facility] [id number] Right 1 Implanted Wound(s): Wound 12/28/21 1 Surgical Wound Neck Right (Active) Wound Closure Sutures 12/14/21 0002 Wound 12/28/21 2 Surgical Wound Groin Anterior;Right (Active) Wound Closure Sutures;Surgical Adhesive 12/14/21 0002 Shahab Buckley MD 12/28/2021 3:09 PM [id number] History and physical note* Shahab Buckley MD - 12/28/2021 11:58 AM EDT INTERVAL HISTORY AND PHYSICAL Patient Name: Barak Foster Admit Date: [id number] MR #: [id number] : 1955 The H&P has been reviewed [...] based on the data from the [place] Stroke and Carotid Endarterectomy Trial. The patient [...] content normal. The note was dictated using [employer] dictation system. The voice recognition software is inherently subject to errors including those of syntax and sound- alike substitutions which may escape proofreading. In such instances, original meaning may be extrapolated by contextual derivation. documented in this [id number] Nurse Note* Jessica De León RN - 12/28/2021 10:[address] Martinez completing neurology assessment [id number] Nurse Note* Jessica De León RN - 12/28/2021 10:[address] Martinez completing neurology assessment documented in this [id number] History of Present illness Narrative* Raffy Richardson, [facility] - 12/22/2021 7:40 AM EDT [facility]/[place] Medication Management ANTICOAGULATION Referring Provider: Dr. Ayde [...] As discussed during his last appointment, Barak's nurse midwife had noted retinal embolization so he recommended duplex sonography of the carotid arteries. He had a CT scan of the neck in [place] per Dr. Buckley and has a blocked [...] Raffy Richardson RPH, PharmD documented in this [facility] Phone: 1([phone]) 874-869705-18-2022 Hospital Discharge instructions* Patient Instructions* Raffy Richardson [...] to your next appointment. documented in this encounterN[facility] Phone: 1(272) 636-978805-14-2022 History of Present illness Narrative* Shahab Buckley [...] revascularization for the last2 years in the [facility]. The institutional complication rate is significantly below 6% requested by the patient's insurance company. documented in this [id number] Evaluation + Plan note* Assessment & Plan Note - Shahab Buckley MD - 12/09/2021 11:07 PM EDT Associated Problem(s): Symptomatic stenosis of right carotid artery I think the patient would benefit from carotid intervention based on the data from the [place] Stroke and Carotid Endarterectomy Trial. The patient [...] moderate doses of a statin medication simvastatin. [id number] Miscellaneous Notes* Assessment & Plan Note - Shahab Buckley MD - 12/09/2021 11:07 PM EDTAssociated Problem(s): Symptomatic stenosis of right carotid artery I think the patient would benefit from carotid intervention based on the data from the [place] Stroke and Carotid Endarterectomy Trial. The patient [...] a statin medication simvastatin. documented in this [id number] History of Present illness Narrative* Shahab Buckley MD - 12/09/2021 11:05 PM EDT Assessment Symptomatic stenosis of right carotid artery I think the patient would benefit from carotid intervention based on the data from the [place] Stroke and Carotid Endarterectomy Trial. The patient [...] doses of a statin medication simvastatin. Barak Deauer 1955 66 y.o. male who presents to [...] content normal. The note was dictated using [employer] dictation system. The voice recognition software is inherently subject to errors including those of syntax and sound- alike substitutions which may escape proofreading. In such instances, original meaning may be extrapolated by contextual derivation. documented in this [id number] History of Present illness Narrative* Raffy Richardson, [facility] - 12/09/2021 7:40 AM EDT [facility]TICOAGULATION Referring Provider: Dr. Ayde [...] visit here in the clinic and his nurse midwife noted retinal embolization so he recommended duplex sonography of the carotid arteries. Barak says he had a CT scan of the neck in [place] earlier this week per Dr. Buckley and [...] Raffy Richardson RPH, PharmD documented in this [facility] Phone: 1(455) [phone] Hospital Discharge instructions* Patient Instructions* Raffy Richardson [...] to your next appointment. documented in this [facility] Phone: [phone]) [phone] Instructions* Patient Instructions* Sophia Gomes MA - 12/08/2021 3:52 PM EDT How to contact your Care Team: Provider: MD Kelle Hogan CNP Jill Bender, PA Nurse: Angeles Samano RN To reschedule office appointments call Scheduling [phone] In case of an emergency please call 911. When in need of refills please call the phone number listed above. Please include medication name, pharmacy name and specify 30 or 90 day supply Please check with your pharmacy within 24 hours of your request for refill. You must follow up as directed to continue current refills. Thank you! documented in this [id number] History of Present illness Narrative* Raffy Richardson RPH - 11/16/2021 8:00 AM EDT [facility] ANTICOAGULATION Referring Provider: Dr. Ayde Nicole GOAL INR: 2.0-3.0 TODAY'S INR: 1.9 WARFARIN [...] Raffy Richardson RPH, PharmD documented in this [facility] Phone: 1([phone]) 556-555804-12-2022 Hospital Discharge instructions* Patient Instructions* Raffy Richardson [...] to your next appointment. documented in this [facility] Phone: 1(339) 137-622701-04-2022 History of Present illness Narrative* Raffy Ricahrdson, [facility] - 08/10/2021 8:00 AM EST [place] Medication Management ANTICOAGULATION Referring Provider: Dr. Ayde [...] Raffy Richardson RPH, PharmD documented in this [facility] Phone: 1([phone]) 415-684501-04-2022 Hospital Discharge instructions* Patient Instructions* Raffy Richardson [...] to your next appointment. documented in this [employer] Phone: 1(469) 277-346411-01-2021 History of Present illness Narrative* Raffy Richardson RPH - 06/07/2021 7:30 AM EDT [facility] Medication Management ANTICOAGULATION Referring Provider: Dr. Ayde [...] Raffy Richardson RPH, PharmD documented in this [facility] Phone: 1([phone]) 169-381111-01-2021 Hospital Discharge instructions* Patient Instructions* Raffy Richardson [...] to your next appointment. documented in this [employer] Phone: 1(948) 156-660909-17-2021 History of Present illness Narrative* Raffy Richardson RPH - 04/23/2021 7:30 AM EDT [facility] Medication Management ANTICOAGULATION Referring Provider: Dr. [...] Accepted: 1 Time Spent (min): 30 Raffy iRchardson RP, PharmD documented in this encounterC[facility] HospitalPerfect[facility] Phone: 1(528) 150-134609-17-2021 Hospital Discharge instructions* Patient Instructions* Raffy Richardson [...] to your next appointment. documented in this encounterC[facility] Clinic [facility] HospitalPerfectPost Phone: 1(504) 514-302307-26-2021 History of Present illness Narrative* Lorri Carmen [facility] - 03/01/2021 10:30 AM EDT [facility] ANTICOAGULATION Referring Provider: Dr. Ayde [...] Lorri Carmen RPH, PharmD documented in this [employer] [facility] LtdC[facility] HospitalPerfect[facility] Phone: 1(874) [phone] Hospital Discharge instructions* Patient Instructions* Lorri Carmen [...] to your next appointment. documented in this [employer] Phone: 1(342) 354-980205-25-2021 History of Present illness Narrative* Raffy Richardson RPH - 12/29/2020 8:00 AM EDT [facility] Medication Management ANTICOAGULATION Referring Doctor: Dr. [...] 11/23/[address] Ayde Matthews DO at [facility]. His surgery was initially scheduled for last [...] Raffy Richardson RPH, PharmD documented in this [employer] Phone: 1(519) 159-205405-25-2021 Hospital Discharge instructions* Patient Instructions* Raffy Richardson [...] to your next appointment. documented in this [employer] Phone: 1(888) 746-995204-19-2021 History of Present illness Narrative* Bethanie Giordano RN - 11/23/2020 10:12 AM EDT Patient transferred to room 60 via stretcher for phase 2. documented in this [employer] Phone: 1(678) 688-454701-27-2020 History of Present illness Narrative* Raffy Richardson [...] referred by his/her physician. documented in this [employer] Phone: 1(961) 742-972101-27-2020 Hospital Discharge instructions* Patient Instructions* Raffy Richardson [...] to your next appointment. documented in this encounterNok [facility] Labs Phone: 1([phone]) 858-726401-13-2020 History of Present illness Narrative* Meka Eagle, RN - 08/19/2019 11:16 AM EST Pt reports little tightness in chest after Lexiscan administered. 11:22 Pt denies chest pain or shortness of breath now. documented in this encounterNok Nok Labs Phone: 1(194) 315-220501-06-2020 Hospital Discharge instructions* Instructions* Eloina Pat MD - 08/12/2019 Lasix 20 mg take 2 tablets in a.m. and 1 tablet p.m. for one week Repeat Bilirubin tomorrow. Follow-up with Dr. Talbert on * Attachments The following attachments cannot be sent through Care Everywhere. 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 Long-term (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 documented in this encounter [facility] Phone: evaluation note* Diagnosis ICD (implantable cardioverter-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 artery disease involving [place] heart without angina pectoris, unspecified vessel or lesion type Hypertension, unspecified type Vitamin D deficiency disease Unspecified vitamin D deficiency documented in this encounter [facility] Phone: evaluation note* Diagnosis ICD (implantable cardioverter-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 artery disease involving [place] heart without angina pectoris, unspecified vessel or lesion type Hypertension, unspecified type Vitamin D deficiency disease Unspecified vitamin D deficiency documented in this encounter [facility] Phone: evaluation note* Diagnosis LV (left ventricular) 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- Primary Acute myocardial infarction, unspecified site, episode of care unspecified 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 Long-term (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 documented in this encounter [facility] Phone: evaluation note* Diagnosis LV (left ventricular) 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- Primary Acute myocardial infarction, unspecified site, episode of care unspecified FDC (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 Long-term (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 documented in this encounter [facility] Phone: evaluation note* Diagnosis LV (left ventricular) 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- Primary Acute myocardial infarction, unspecified site, episode of care unspecified 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 Long-term (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 documented in this encounter [facility] Phone: evaluation note* Diagnosis LV (left ventricular) 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- Primary Acute myocardial infarction, unspecified site, episode of care unspecified 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 Long-term (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 documented in this encounter [facility] Phone: evaluation note* Diagnosis Central artery occlusion of retina, left documented in this encounter [facility] Phone: evaluation note* Diagnosis Acute on chronic congestive heart failure, unspecified heart failure type (HCC)- Primary Coronary artery disease involving [place] heart without angina pectoris, unspecified vessel or lesion type Hypertension, unspecified type Other specified diabetes mellitus without complication, with long-term current use of insulin (HCC) Cardiomyopathy, unspecified type (HCC) Shortness of breath Elevated bilirubin Disorders of bilirubin excretion Calculus of gallbladder without cholecystitis without obstruction Calculus of gallbladder without mention of cholecystitis or obstruction documented in this encounter [facility] Phone: evaluation note* Diagnosis Elevated bilirubin Disorders of bilirubin excretion Calculus of gallbladder without cholecystitis without obstruction Calculus of gallbladder without mention of cholecystitis or obstruction documented in this encounter [facility] Phone: evaluation note* Diagnosis Shortness of breath documented in this encounter [facility] Phone: evaluation note* Diagnosis Cardiomyopathy, unspecified type (HCC) Shortness of breath documented in this encounter [facility] Phone: evaluation note* Diagnosis 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 Long-term (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 LV (left ventricular) 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 Acute myocardial infarction, unspecified site, episode of care unspecified documented in this encounter [facility] Phone: evaluation note* Diagnosis ICD (implantable cardioverter-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 artery disease involving [place] heart without angina pectoris, unspecified vessel or lesion type Hypertension, unspecified type Vitamin D deficiency disease Unspecified vitamin D deficiency Shortness of breath documented in this encounter [facility] Phone: [id number] note* Diagnosis LV (left ventricular) 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- Primary Acute myocardial infarction, unspecified site, episode of care unspecified 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 Long-term (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 documented in this encounter [facility] Phone: evaluation note* Diagnosis Elevated serum creatinine- Primary Other nonspecific findings on examination of blood Atherosclerosis of right carotid artery [facility] Diagnosis Symptomatic stenosis of right carotid artery [facility] Diagnosis Symptomatic stenosis of right carotid artery- Primary Symptomatic stenosis of right carotid artery [facility] Diagnosis LV (left ventricular) 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- Primary Acute myocardial infarction, unspecified site, episode of care unspecified 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 Long-term (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 documented in this encounter [facility] Phone: evaluation note* Diagnosis Symptomatic stenosis of right carotid artery- Primary Carotid stenosis, symptomatic w/o infarct, right Symptomatic stenosis of right carotid artery [facility] Diagnosis Left arm pain- Primary Pain in limb documented in this encounter [facility] Phone: evaluation note* Diagnosis Left arm pain Pain in limb documented in this encounter [facility] Phone: evaluation note* Diagnosis LV (left ventricular) 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- Primary Acute myocardial infarction, unspecified site, episode of care unspecified 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 Long-term (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 documented in this encounter [facility] Phone: evaluation note* Diagnosis LV (left ventricular) 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- Primary Acute myocardial infarction, unspecified site, episode of care unspecified 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 Long-term (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 documented in this encounter [facility] Phone: evaluation note* Diagnosis Carotid stenosis, symptomatic w/o infarct, right- Primary Symptomatic stenosis of right carotid artery [facility] [place] [facility]* Diagnosis ICD (implantable cardioverter-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 artery disease involving [place] heart without angina pectoris, unspecified vessel or lesion type Hypertension, unspecified type Vitamin D deficiency disease Unspecified vitamin D deficiency Cardiomyopathy, unspecified type (HCC) SOB (shortness of breath) Shortness of breath documented in this encounter [facility] Phone: evaluation note* Diagnosis LV (left ventricular) 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- Primary Acute myocardial infarction, unspecified site, episode of care unspecified FDC (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 Long-term (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 documented in this encounter [facility] Phone: [email or web address] note* Diagnosis ICD (implantable cardioverter-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 artery disease involving [place] heart without angina pectoris, unspecified vessel or lesion type Hypertension, unspecified type Vitamin D deficiency disease Unspecified vitamin D deficiency Cardiomyopathy, unspecified type (HCC) SOB (shortness of breath) Shortness of breath Other specified diabetes mellitus without complication, with long-term current use of insulin (HCC) documented in this encounter [facility] Phone: evaluation note* Diagnosis Coronary artery disease, unspecified vessel or lesion type, unspecified whether angina present, unspecified whether [place] or transplanted heart documented in this encounter [facility] Phone: [email or web address] note* Diagnosis LV (left ventricular) 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- Primary Acute myocardial infarction, unspecified site, episode of care unspecified FDC (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 Long-term (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 documented in this encounter [facility] Phone: [email or web address] note* Diagnosis LV (left ventricular) 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- Primary Acute myocardial infarction, unspecified site, episode of care unspecified [facility]DC (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 Long-term (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 documented in this encounter [facility] Phone: [email or web address] note* Diagnosis Carotid stenosis, symptomatic w/o infarct, right- Primary Left carotid stenosis documented in this encounter [facility] note* Diagnosis ICD (implantable cardioverter-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 artery disease involving [place] heart without angina pectoris, unspecified vessel or lesion type Hypertension, unspecified type Vitamin D deficiency disease Unspecified vitamin D deficiency Cardiomyopathy, unspecified type ([facility]) documented in this encounter [facility] [employer] [facility]* Diagnosis Heart disease- Primary Heart disease, unspecified [facility] [place] [facility]* Diagnosis Frequent PVCs- Primary Other premature beats [facility] [place] [facility]* Diagnosis Chronic systolic HF (heart failure) (HCC)- Primary Chronic systolic heart failure Dysuria Frequent PVCs Other premature beats Chronic combined systolic and diastolic congestive heart failure (HCC) Chronic combined systolic and diastolic heart failure Cardiomyopathy, nonischemic (HCC) Other primary cardiomyopathies documented in this [facility] [place] [facility]* Diagnosis Paroxysmal atrial fibrillation (HCC)- Primary Atrial fibrillation Pre-op exam Preoperative examination, unspecified [facility] [place] [facility]* Diagnosis Chronic systolic HF (heart failure) (HCC)- Primary Chronic systolic heart failure Paroxysmal atrial fibrillation (HCC) Atrial fibrillation Cardiomyopathy, nonischemic (HCC) Other primary cardiomyopathies Frequent PVCs Other premature beats documented in this encounter [facility] note* Diagnosis Chronic systolic HF (heart failure) (HCC)- Primary Chronic systolic heart failure Coronary artery disease involving [place] coronary artery of [place] heart without angina pectoris Atrial fibrillation, chronic (HCC) Atrial fibrillation [facility] Instructions* Karl Taveras RN - [...] urinate call your doctor [facility]: reason for referral (narrative)* Diagnostic Procedure Only (Routine) - Closed Specialty Diagnoses / Procedures Referred By Trang giraldo Referred To Contact MOLECULAR & FUNCTIONAL IMAGING Diagnoses Heart disease Procedures NM PET/CT CARDIAC VIABILITY MYOCRD IMG PET PRFUJ W/METAB 2RTRACER CNCRNT CT Venus Talbert MD [address] [place] [address] Molecular & Functional Imaging [address] [place] [address] Referral ID Status Reason Start Date Expiration Date V isits Requested Visits Authorized [id number] Closed Auto-Generate d Referral 03/21/2023 04/19/2024 3 3 [facility] for visit Narrative* Auth/Cert Specialty Diagnoses / Procedures Referred By Contrichie giraldo Referred To Contact Diagnoses Symptomatic stenosis of right carotid artery Procedures TRANSCAROTID ARTERY REVASCULARIZATION Shahab Buckley MD [address] [place] [id number] Referral ID Status Reason Start Date Expiration Date Visits Re quested Visits Authorized [id number] 12/14/2021 1 1 [facility] Diagnosis Ischemic cardiomyopathy Other specified forms of chronic ischemic heart disease Diagnosis Kidney insufficiency Unspecified disorder of kidney and ureter Diagnosis FDC (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 Long-term (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 LV (left ventricular) 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 Acute myocardial infarction, unspecified site, episode of care unspecified Diagnosis ICD (implantable cardioverter-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 artery disease involving [place] heart without angina pectoris, unspecified vessel or lesion type Hypertension, unspecified type Vitamin D deficiency disease Unspecified vitamin D deficiency Shortness of breath Diagnosis Cardiomyopathy, unspecified type (HCC) SOB (shortness of breath) Shortness of breath Diagnosis ICD (implantable cardioverter-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 artery disease involving [place] heart without angina pectoris, unspecified vessel or lesion type Hypertension, unspecified type Vitamin D deficiency disease Unspecified vitamin D deficiency Other specified diabetes mellitus without complication, with long-term current use of insulin (HCC) Diagnosis ICD (implantable cardioverter-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 artery disease involving [place] heart without angina pectoris, unspecified vessel or lesion type Hypertension, unspecified type Vitamin D deficiency disease Unspecified vitamin D deficiency Other specified diabetes mellitus without complication, with long-term current use of insulin (HCC) Diagnosis FDC (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 Long-term (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 LV (left ventricular) 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 Acute myocardial infarction, unspecified site, episode of care unspecified Diagnosis ICD (implantable cardioverter-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 artery disease involving [place] heart without angina pectoris, unspecified vessel or lesion type Hypertension, unspecified type Vitamin D deficiency disease Unspecified vitamin D deficiency Shortness of breath Diagnosis 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 Long-term (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 [...] FoundDocuments on File Type Date Recorded Patient Mechanical Unit Repairer Expl anation Advance Directives and Living Will Power of Farmworker Field Crop Documents on File Type Date Recorded Patient Mechanical Unit Repairer Expl anation Advance Directives and Living Will Power of Farmworker Field Crop Documents on File Type Date Recorded Patient Mechanical Unit Repairer Expl anation ACP-Advance Directive ACP-Power of Farmworker Field Crop Documents on File Type Date Recorded Patient Mechanical Unit Repairer Expl anation ACP-Advance Directive ACP-Power of Farmworker Field Crop Documents on File Type Date Recorded Patient Mechanical Unit Repairer Expl anation Advance Directives and Livin g Will 11/26/2021 3:28 PM Documents on File Type Date Recorded Patient Mechanical Unit Repairer Expl anation Advance Directives and Livin g [...] Patient Discharge Instructions * Patient Instructions* Lorri Carmen [facility] - 10/17/2019 7:30 AM EDT Continue current [...] in this encounter* Patient Instructions* Lorri Carmen [facility] - 01/09/2020 7:30 AM EDT Continue current [...] in this encounter* Patient Instructions* Lorri Carmen [facility] - 02/20/2020 7:30 AM EDT Continue current [...] in this encounter* Patient Instructions* Lorri Carmen [facility] - 04/02/2020 7:30 AM EDT Continue current [...] in this encounter* Patient Instructions* Lorri Carmen [facility] - 05/14/2020 7:30 AM EDT Continue current [...] in this encounter* Patient Instructions* Raffy Richardson [facility] - 08/14/2020 9:45 AM EST Continue current [...] in this encounter* Patient Instructions* Raffy Richardson [facility] - 06/03/2019 12:18 PM EDT Continue current [...] in this encounter* Patient Instructions* Lorri Carmen [facility] - 04/11/2019 7:35 AM EDT Continue current [...] this encounter* Instructions* Mary Fernando APRN - HEEL GOUGER - 11/04/2020 Images from the original note [...] drive you home after your procedure. Your medical delivery driver must be 18 years of age [...] questions, call the Pre-Admission Testing Unit at [phone]. Day of Surgery/Procedure As a patient at [facility] you can expect quality medical and nursing care that is centered on your individual needs. Our goal is to make your surgical experience as comfortableas possible . Directions to the Surgery Center [facility] is located at [address] [place] [address]. Please pull into the Emergency parking lot and stop at the live source operator mejias. We offer free live source operator service for all our surgery patients, if you choose not to have live source operator parking we have additional parking across the street.You will enter the facility following the [facility] sign. Please stop at the house repairer desk where you will be checked in by the staff. If you have any questions please call [phone]. Transportation after your procedure. You will need a friend or family member to drive you home after your procedure. Your medical delivery driver must be18 years of age or [...] You may shave your face or neck. Collins your teeth but do not swallow water. [...] or the day of surgery, please call [phone], or [phone] documented in this encounter* Patient Instructions* Raffy Richardson RPH - 11/17/2020 8:00 AM EDT Continue [...] Time Spent (min): 15 Lorri Carmen PharmD [facility] documented in this encounter* Lorri Carmen RPH - 01/09/2020 7:30 AM EDT Fingerstick INR [...] Time Spent (min): 15 Lorri Carmen PharmD [facility] documented in this encounter* Lorri Carmen RPH - 02/20/2020 7:30 AM EDT Fingerstick INR [...] Time Spent (min): 30 Lorri Carmen PharmD [facility] documented in this encounter* Lorri Carmen RPH - 04/02/2020 7:30 AM EDT Fingerstick INR drawn per clinic protocol. Patient states no visible blood in urine and no black tarry stool. Denies any missed doses of warfarin. No change in other maintenance medications or in diet. Barak saw Dr. Nicole on 03/02. Since [facility] INR remains therapeutic, we will [...] Time Spent (min): 30 Lorri Carmen PharmD [facility] documented in this encounter* Lorri Carmen RPH - 05/14/2020 7:30 AM EDT Fingerstick INR [...] Time Spent (min): 30 Lorri Carmen PharmD [facility] documented in this encounter* Raffy Richardson RP - 08/14/2020 9:45 AM EST Venipuncture INR drawn per [facility] lab protocol. All communication is with the [...] PharmD documented in this encounter* Raffy Richardson [facility] - 06/03/2019 12:18 PM EDT Fingerstick INR [...] physician documented in this encounter* Lorri Carmen, [facility] - 04/11/2019 7:35 AM EDT Fingerstick INR [...] his/her physician. documented in this encounter* Alaina West RN - 11/09/2020 1:30 PM EDT Per Alpesh, Zoom Rep, OK to use Magnet DOS PRN. He doesn't need to be here. 1-800- Cardiac documented in this encounter* Rafyf Richardson, [facility] - 11/17/2020 8:00 AM EDT [facility] Medication Management ANTICOAGULATION Referring Doctor: Dr. Ayde [...] consultation with Dr. Ayde Matthews DO at [facility] on 10/15/2020 and has a cholelithiasis scheduled [...] to this procedure and was cleared by precision assembly inspector, Dr. Nicole, without the need for bridge [...] llator) in place Coronary artery disease involving [place] heart without angina pectoris, unspecified vessel or lesion type Hypertension, unspecified type Vitamin D deficiency disease Shortness of breath Procedures EKG 12 Lead Rafa Nicole MD [address] [place] [address] Status Reason Specialty Diagnoses / Procedures Referred By Contact Referred To Contact Closed Cardiology / Echocardiography Diagnoses Cardiomyopathy, unspecified type (HCC) SOB (shortness of breath) Procedures ECHO Complete 2D W Doppler W Color Rafa Nicole MD [address] [place] [address] [facility] Echo [address] [place] [address] Status Reason Specialty Diagnoses / Procedures Referre d By Contact Referred To Contact Open Cardiology Diagnoses ICD (implantable cardioverter-defibrill ator) in place Coronary artery disease involving [place] heart without angina pectoris, unspecified vessel or lesion type Hypertension, unspecified type Vitamin D deficiency disease Other specified diabetes mellitus without complication, with long-term current use of insulin (HCC) Procedures EKG 12 Lead Rafa Nicole MD [address] [place] [address] Status Reason Specialty Diagnoses / Procedures Referre d By Contact Referred To Contact Closed Radiology Diagnoses Epigastric pain Procedures US GALLBLADDER RUQ Ayde Matthews, [address] [facility] [address] [place] [address] [facility] Ul[facility]ound [address] [place] [address] Status Reason Specialty Diagnoses / Procedures Referre d By Contact Referred To Contact Open Cardiology Diagnoses ICD (implantable cardioverter-defibrill ator) in place Coronary artery disease involving [place] heart without angina pectoris, unspecified vessel or lesion type Hypertension, unspecified type Vitamin D deficiency disease Procedures EKG 12 Lead Rafa Nicole MD [address] [place] [id number] Specialty Diagnoses / Procedures Referred By Contac t Referred To Contact Vascular Lab Diagnoses Central artery occlusion of retina, left Procedures VL DUP CAROTID BILATERAL Jeff Cerda MD [address] [place] [address] Referral ID Status Reason Start Date Expiration Date Visits Re quested Visits Authorized [id number] Open 10/26/2021 10/26/2022 1 1 Status Reason Specialty Diagnoses / Procedures Referred By Contact Referred To Contact Pending Review Cardiology Diagnoses Coronary artery disease involving [place] heart without angina pectoris, unspecified vessel or lesion type Hypertension, unspecified type Other specified diabetes mellitus without complication, with long-term current use of insulin (HCC) Cardiomyopathy, unspecified type (HCC) Shortness of breath Procedures EKG 12 Lead Rafa Nicole MD [address] [place] [address] Status Reason Specialty Diagnoses / Procedures Referre d By Contact Referred To Contact Closed Cardiology Diagnoses Shortness of breath Procedures Stress test, lexiscan HC NM SEST. REST STRESS MULT CHG MYOCARDIAL SPECT MULTIPLE STUDIES Rafa Nicole MD [address] [place] [address] [facility] [address] [facility] [place] [address] Status Reason Specialty Diagnoses / Procedures Referre d By Contact Referred To Contact Closed Cardiology Diagnoses Cardiomyopathy, unspecified type (HCC) Shortness of breath Procedures ECHO Complete 2D W Doppler W Color HC ECHO NO CONTRAST WITH DOP/COLR ND ECHO HEART XTHORACIC,COMPLETE W DOPPLER Rafa Nicole MD [address] [place] [address] [facility] [address] [facility] [place] [address] Specialty Diagnoses / Procedures Referred By Contac t Referred To Contact Cardiology Diagnoses Carotid stenosis, symptomatic w/o infarct, right Procedures Ultrasound doppler carotid Mary Jane Rodriguez PA-C [address] [place] [address] Referral ID Status Reason Start Date Expiration Date V isits Requested Visits Authorized [id number] Pending Review 01/29/2022 01/29/2023 1 1 Specialty Diagnoses / Procedures Referred By Contac t Referred To Contact Radiology Diagnoses Left arm pain Procedures VL DUP UPPER EXTREMITY VENOUS LEFT Lonnie Hart MD [address] [place] [address] [place] [address] Referral ID Status Reason Start Date Expiration Date Visits Re quested Visits Authorized [id number] Open 01/07/2022 01/07/2023 1 1 Referral ID Status Reason Start Date Expiration Date Visits Re quested Visits Authorized [id number] Closed 01/07/2022 01/07/2023 1 1 Specialty Diagnoses / Procedures Referred By Contac t Referred To Contact Cardiology Diagnoses Carotid stenosis, symptomatic w/o infarct, right Procedures Carotid Duplex Shahab Buckley MD [address] [place] [address] Referral ID Status Reason Start Date Expiration Date V isits Requested Visits Authorized [id number] Authorized 02/11/2022 02/11/2023 1 1 Specialty Diagnoses / Procedures Referred By Contac t Referred To Contact Cardiology Diagnoses ICD (implantable cardioverter-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 artery disease involving [place] heart without angina pectoris, unspecified vessel or lesion type Hypertension, unspecified type Vitamin D deficiency disease Cardiomyopathy, unspecified type (HCC) SOB (shortness of breath) Procedures EKG 12 Lead Rfaa Nicole MD [address] [place] [address] Referral ID Status Reason Start Date Expiration Date Visits Re quested Visits Authorized [id number] Open 01/30/2022 01/30/2023 1 1 Referral ID Status Reason Start Date Expiration Date V isits Requested Visits Authorized [id number] Authorized 08/26/2022 08/26/2023 1 1 Specialty Diagnoses / Procedures Referred By Contac t Referred To Contact Chandni Vitale MD [address] [place] [address] Referral ID Status Reason Start Date Expiration Date V isits Requested Visits Authorized [id number] Pending Review 1 1 Specialty Diagnoses / Procedures Referred By Contac t Referred To Contact Procedures CARDIOVASCULAR MEDICINE OP FOLLOW UP APPT ORDER Anamaria Ta, COMPASS OPERATOR.HEEL GOUGER [address] [place] [address] Referral ID Status Reason Start Date Expiration Date Visits Requested Visits Authorized [id number] Ref Not Required PCP Requested Referral 3 06/15/2024 1 1 Specialty Diagnoses / Procedures Referred By Contac t Referred To Contact Procedures CARDIOVASCULAR MEDICINE OP FOLLOW UP APPT ORDER Yannick Zuñiga, PA-C [address] [place] [address] Referral ID Status Reason Start Date Expiration Date Visits Requested Visits Authorized [id number] Ref Not Required PCP Requested Referral 3 06/26/2024 1 1 Specialty Diagnoses / Procedures Referred By Contac t Referred To Contact Procedures CARDIOVASCULAR MEDICINE OP FOLLOW UP APPT ORDER Carolina Barger MD [address] [place] [address] Referral ID Status Reason Start Date Expiration Date Visits Requested Visits Authorized [id number] Ref Not Required PCP Requested Referral 01/11/2024 [...] section and content) DATE CREATED AUTHOR 01/29/2018 [facility] DATE CREATED AUTHOR AUTHOR'S ORGANIZ ATION 01/29/2018 [facility] [facility] DATE CREATED AUTHOR AUTHOR'S ORGANIZ ATION 01/30/2018 [facility] DATE CREATED AUTHOR AUTHOR'S ORGANIZ ATION 02/08/2018 [facility] DATE CREATED AUTHOR AUTHOR'S ORGANIZ ATION 11/25/[address] [facility] DATE CREATED AUTHOR AUTHOR'S ORGANIZ ATION 01/30/2021 [facility] DATE CREATED AUTHOR AUTHOR'S ORGANIZ ATION 08/31/2022 [facility] DATE CREATED AUTHOR AUTHOR'S ORGANIZ ATION 08/31/2022 [facility] DATE CREATED AUTHOR AUTHOR'S ORGANIZ ATION 01/14/2023 [facility] DATE CREATED AUTHOR AUTHOR'S ORGANIZ ATION 03/16/2023 [facility] DATE CREATED AUTHOR AUTHOR'S ORGANIZ ATION 03/21/2023 [facility] DATE CREATED AUTHOR AUTHOR'S ORGANIZ ATION 03/21/2023 [facility] DATE CREATED AUTHOR AUTHOR'S ORGANIZ ATION 03/27/2023 [facility] DATE CREATED AUTHOR AUTHOR'S ORGANIZ ATION 08/06/2023 [facility] Ordered Prescriptions (unrec ognized section and [...] skip Fridays) or as directed. Managed by [facility] 90 tablet 3 01/20/2022 Prescription Sig Dispensed Refills Start Date End Da te warfarin (COUMADIN) 2.5 MG tablet Take 1/2 tablet daily or as directed. Managed by [facility] 90 tablet 1 01/27/2022 Prescription Sig Dispensed Refills Start Date End Da te warfarin (COUMADIN) 2.5 MG tablet Take 1 tablet daily or as directed. Managed by [facility]. 90 tablet 1 06/01/2022 Prescription Sig Dispensed [...] Doppler W Color Rafa Nicole MD [address] [place] [address] [facility] [address] [place] [address] Status Reason Specialty Diagnoses / Procedures Referre d By Contact Referred To Contact Closed Radiology Diagnoses Epigastric pain Procedures US GALLBLADDER RUQ Ayde Matthews DO [address] [address] [facility] [address] [place] [address] Status Reason Specialty Diagnoses / Procedures Referre d By Contact Referred To Contact Diagnoses Gallstones GALLSTONES Procedures ND LAP,CHOLECYSTECTOMY XI ROBOTIC LAPAROSCOPIC CHOLECYSTECTOMY, POSSIBLE OPEN Ayde Matthews DO [address] [facility] [address] [place] [address] [facility] Specialty Diagnoses / Procedures Referred By Trang giraldo Referred To Contact Cardiology Diagnoses 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, with macular edema, with mild nonproliferative retinopathy, associated with type 2 diabetes mellitus (HCC) Other intraretinal microvascular abnormalities Procedures 66674 - ND Duplex Scan Extracranial, Nacho Jeff Cerda MD [address] [place] [address] Referral ID Status Reason Start Date Expiration Date Visits Re quested Visits Authorized Closed 10/25/2021 10/25/2022 1 1 Reason Comments Shortness of Breath for the last four da ys Status Reason Specialty Diagnoses / Procedures Referre d By Contact Referred To Contact Closed Cardiology Diagnoses Shortness of breath Procedures Stress test, lexiscan HC NM SEST. REST STRESS MULT CHG MYOCARDIAL SPECT MULTIPLE STUDIES Rafa Nicole MD [address] [place] [address] [place] [address] Status Reason Specialty Diagnoses / Procedures Referre d By Contact Referred To Contact Closed Cardiology Diagnoses Cardiomyopathy, unspecified type (HCC) Shortness of breath Procedures ECHO Complete 2D W Doppler W Color HC ECHO NO CONTRAST WITH DOP/COLR ND ECHO HEART XTHORACIC,COMPLETE W DOPPLER Rafa Nicole MD [address] [place] [address] [place] [address] Reason Comments Follow-up Reason Comments Arm Pain left lower arm pain and bruising. Patient states its 10 days old from surgery on his carotid. Believes its from IV starts and may infiltration. Specialty Diagnoses / Procedures Referred By Contac t Referred To Contact Radiology Diagnoses Left arm pain Procedures VL DUP UPPER EXTREMITY VENOUS LEFT Lonnie Hart MD [address] [facility] [place] [address] Referral ID Status Reason Start Date Expiration Date Visits Re quested Visits Authorized [id number] Closed 01/07/2022 01/07/2023 1 1 Reason Onset [...] Care Teams (unrecognized sec tion and content) Mold Cooler Relationship Specialty Start Date End Date Jeff Cerda MD PCP - General 09/01/17 Mold Cooler Relationship Specialty Start Date End Date Jeff Cerda MD PCP - General 09/01/17 Mold Cooler Relationship Specialty Start Date End Date Jeff Cerda MD PCP - General 09/01/17 Mold Cooler Relationship Specialty Start Date End Date Jeff Cerda MD PCP - General Family Medicine 09/07/17 Shahab Buckley MD [address] [place] [address] Vascular Surgery 11/26/21 Mold Cooler Relationship Specialty Start Date End Date Jeff Cerda MD [address] [place] [address] PCP - General Family Medicine 09/07/17 Shahab Buckley MD [address] [place] [address] Vascular Surgery 11/26/21 Mold Cooler Relationship Specialty Start Date End Date Jeff Cerda MD [address] [place] [phone] (Fax) PCP - General Family Medicine 09/07/17 Shahab Buckley MD [address] [place] [address] Vascular Surgery 11/26/21 Mold Cooler Relationship Specialty Start Date End Date Jeff Cerda MD PCP - General 09/01/17 Mold Cooler Relationship Specialty Start Date End Date Jeff Cerda MD [address] [place] [address] (Fax) PCP - General Family Medicine 09/07/17 Shahab Buckley MD [address] [place] [address] Vascular Surgery 11/26/21 Mold Cooler Relationship Specialty Start Date End Date Jeff Cerda MD PCP - General 09/01/17 Mold Cooler Relationship Specialty Start Date End Date Jeff Cerda MD PCP - General 09/01/17 Mold Cooler Relationship Specialty Start Date End Date Jeff Cerda MD PCP - General 09/01/17 Mold Cooler Relationship Specialty Start Date End Date Jeff Cerda MD PCP - General 09/01/17 Mold Cooler Relationship Specialty Start Date End Date Jeff Cerda MD [address] [place] [address] (Fax) PCP - General Family Medicine 09/07/17 Shahab Buckley MD [address] [place] [address] Vascular Surgery 11/26/21 Mold Cooler Relationship Specialty Start Date End Date Jeff Cerda MD PCP - General 09/01/17 Mold Cooler Relationship Specialty Start Date End Date Jeff Cerda MD [address] [place] [phone] (Fax) PCP - General Family Medicine 09/07/17 Shahab Buckley MD [address] [place] [id number] Vascular Surgery 11/26/21 Mold Cooler Relationship Specialty Start Date End Date Jeff Cerda MD PCP - General 09/01/17 Mold Cooler Relationship Specialty Start Date End Date Jeff Cerda MD PCP - General 09/01/17 Mold Cooler Relationship Specialty Start Date End Date Jeff Cerda MD PCP - General 09/01/17 Mold Cooler Relationship Specialty Start Date End Date Jeff eCrda MD PCP - General 09/01/17 Mold Cooler Relationship Specialty Start Date End Date Jeff Cerda MD PCP - General 09/01/17 Mold Cooler Relationship Specialty Start Date End Date Jeff Cerda MD PCP - General 09/01/17 Mold Cooler Relationship Specialty Start Date End Date Jeff Cerda MD [address] [place] [address] (Fax) PCP - General Family Medicine 09/07/17 Shahab Buckley MD [address] [place] [address] Vascular Surgery 11/26/21 Mold Cooler Relationship Specialty Start Date End Date Jeff Cerda MD [address] [place] [address] PCP - General Family Medicine 09/07/17 Shahab Buckley MD [address] [place] [address] Vascular Surgery 11/26/21 Mold Cooler Relationship Specialty Start Date End Date Jeff Cerda MD PCP - General 09/01/17 Mold Cooler Relationship Specialty Start Date End Date Franck Terrell II, MD [address] [facility] [address] [place] [address] PCP - General Internal Medicine 10/09/15 Mold Cooler Relationship Specialty Start Date End Date Franck Terrell II, MD [address] [facility] [address] [place] [address] PCP - General Internal Medicine 10/09/15 Mold Cooler Relationship Specialty Start Date End Date Franck Terrell II, MD [address] [facility] [address] [place] [address] PCP - General Internal Medicine 10/09/15 Mold Cooler Relationship Specialty Start Date End Date Franck Terrell II, MD [address] [facility] [address] [place] [address] PCP - General Internal Medicine 10/09/15 Mikael Henry RP [address] [place] [address] Transitional Care Pharmacist Pharmacy 04/14/23 05/12/23 Mold Cooler Relationship Specialty Start Date End Date Franck Terrell II, MD [address] [facility] [address] [place] [address] PCP - General Internal Medicine 10/09/15 [facility] [address] [place] [address] Transitional Care Pharmacist Pharmacy 04/14/23 05/12/23 Mold Cooler Relationship Specialty Start Date End Date Franck Terrell II, MD [address] [facility] [address] [place] [address] PCP - General Internal Medicine 10/09/15 [facility] [address] [place] [address] Transitional Care Pharmacist Pharmacy 04/14/23 05/12/23 Mold Cooler Relationship Specialty Start Date End Date Franck Terrell II, MD [address] [facility] [address] [place] [address] PCP - General Internal Medicine 10/09/15 [facility] [address] [place] [address] Transitional Care Pharmacist Pharmacy 04/14/23 05/12/23 Mold Cooler Relationship Specialty Start Date End Date Jeff Cerda MD [address] [place] [address] PCP - General Family Medicine 05/12/23 [facility] [address] [place] [address] Transitional Care Pharmacist Pharmacy 04/14/23 05/12/23 Mold Cooler Relationship Specialty Start Date End Date Jeff Cerda MD [address] [place] [address] (Fax) PCP - General Family Medicine 05/12/23 [facility] [address] [place] [address] Transitional Care Pharmacist Pharmacy 04/14/23 05/12/23 Mold Cooler Relationship Specialty Start Date End Date Jeff Cerda MD [address] [facility] [address] (Fax) PCP - General Family Medicine 05/12/23 Mold Cooler Relationship Specialty Start Date End Date Jeff Cerda MD [address] [facility] [address] (Fax) PCP - General Family Medicine 05/12/23 Mold Cooler Relationship Specialty Start Date End Date Jeff Cerda MD [address] [facility] [place] [address] (Fax) PCP - General Family Medicine 05/12/23 Mold Cooler Relationship Specialty Start Date End Date Jeff Cerda MD [address] [facility] [place] [address] (Fax) PCP - General Family Medicine 05/12/23 Mold Cooler Relationship Specialty Start Date End Date Jeff Cerda MD [address] [place] [address] (Fax) PCP - General Family Medicine 05/12/23 Mold Cooler Relationship Specialty Start Date End Date Jeff Cerda MD [address] [place] [address] (Fax) PCP - General Family Medicine 05/12/23 Mold Cooler Relationship Specialty Start Date End Date Jeff Cerda MD [address] [facility] [place] [address] (Fax) PCP - General Family Medicine 05/12/23 Mold Cooler Relationship Specialty Start Date End Date Jeff Cerda MD [address] [facility] [place] [phone] (Fax) PCP - General Family Medicine 05/12/23 Mold Cooler Relationship Specialty Start Date End Date Jeff Cerda MD [address] [facility] [place] [address] (Fax) PCP - General Family Medicine 05/12/23 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 0833 (Given - Provid er: Yanelis Blackmon, CARRIE) metFORMIN (GLUCOPHAGE) tablet 1,000 mg 1,000 mg, [...] patients who will receive intra-arterial iodinated contrast. 184 (Given - Provider: Belia Ponce RN) 0832 (Given - Provider: Yanelis Blackmon RN) metoprolol succinate (TOPROL-XL) 24 hr tablet 50 mg 50 mg, Oral, Daily, First dose on Mon12/28/21 at 1900, DO NOT CRUSH OR CHEW. 1845 (Given - Provider: Belia Ponce RN) 831 (Given - Provider: Yanelis Blackmon, CARRIE) sacubitriL-valsartan (ENTRESTO) 49-51 mg per tablet 1 tablet 1 tablet, Oral, 2 times daily, First dose on Mon12/28/21 at 2300 2357 (Given - Provider: Evi Mckeon, CARRIE) 1100 (Due) simvastatin (ZOCOR) tablet 40 mg 40 mg, Oral, Nightly, First dose on Mon12/28/21 at 2100 2032 (Given - Provider: Elsie West, CARRIE) spironolactone (ALDACTONE) tablet 25 mg 25 mg, Oral, Daily, First dose on Mon12/29/21 at 0900, CATEGORY C HAZARDOUS DRUG use safe handling precautions. Use reference link to view PPE guidelines. Minimize crushing/splitting only to situations where clinically necessary. 0833 (Given - Provid er: Yanelis Blackmon [...] 1200, Pre-Procedure 1126 (New Bag - Provider: Jsesica De León, CARRIE)1145 (OCT Hold - Provider: Transfer Provider, Automatic - Reason: Patient not available)1254 (Paused - Provider: Cheyenne Brooks CRNA - Comment: Switch to gravity)1255 (Restarted - Provider: Cheyenne Brooks CRNA)1256 (OCT Unhold - Provider: Transfer Provider, Automatic)1458 (Anesthesia Volume Adjustment - Provider: Cheyenne Brooks CRNA)1516 (OCT Hold - Provider: Transfer Provider, Automatic - Reason: Patient not available)1728 (MAR Unhold - Provider: Transfer Provider, Automatic) lactated [...] or prosecute any alcohol or drug abuse patient.[facility] System[facility] the event this information is protected by the Federal Confidentiality of Alcohol and Drug Abuse Patient Records regulations: The Federal rules restrict any use of the information to criminally investigate or prosecute any alcohol or drug abuse patient.[facility] SystemIn the event this information is protected by the Federal Confidentiality of Alcohol and Drug Abuse Patient Records regulations: The Federal rules restrict any use of the information to criminally investigate or prosecute any alcohol or drug abuse patient.[facility] SystemIn the event this information is protected by the Federal Confidentiality of Alcohol and Drug Abuse Patient Records regulations: The Federal rules restrict any use of the information to criminally investigate or prosecute any alcohol or drug abuse patient.[facility] SystemIn the event this information is protected by the Federal Confidentiality of Alcohol and Drug Abuse Patient Records regulations: The Federal rules restrict any use of the information to criminally investigate or prosecute any alcohol or drug abuse patient.[facility] SystemIn the event this information is protected by the Federal Confidentiality of Alcohol and Drug Abuse Patient Records regulations: The Federal rules restrict any use of the information to criminally investigate or prosecute any alcohol or drug abuse patient.[facility] SystemIn the event this information is protected by the Federal Confidentiality of Alcohol and Drug Abuse Patient Records regulations: The Federal rules restrict any use of the information to criminally investigate or prosecute any alcohol or drug abuse patient.[facility] SystemIn the event this information is protected by the Federal Confidentiality of Alcohol and Drug Abuse Patient Records regulations: The Federal rules restrict any use of the information to criminally investigate or prosecute any alcohol or drug abuse patient.[facility] SystemIn the event this information is protected by the Federal Confidentiality of Alcohol and Drug Abuse Patient Records regulations: The Federal rules restrict any use of the information to criminally investigate or prosecute any alcohol or drug abuse patient.[facility] SystemIn the event this information is protected by the Federal Confidentiality of Alcohol and Drug Abuse Patient Records regulations: The Federal rules restrict any use of the information to criminally investigate or prosecute any alcohol or drug abuse patient.[facility] SystemIn the event this information is protected by the Federal Confidentiality of Alcohol and Drug Abuse Patient Records regulations: The Federal rules restrict any use of the information to criminally investigate or prosecute any alcohol or drug abuse patient.[facility] SystemIn the event this information is protected by the Federal Confidentiality of Alcohol and Drug Abuse Patient Records regulations: The Federal rules restrict any use of the information to criminally investigate or prosecute any alcohol or drug abuse patient.[facility] SystemIn the event this information is protected by the Federal Confidentiality of Alcohol and Drug Abuse Patient Records regulations: The Federal rules restrict any use of the information to criminally investigate or prosecute any alcohol or drug abuse patient.[facility] SystemIn the event this information is protected by the Federal Confidentiality of Alcohol and Drug Abuse Patient Records regulations: The Federal rules restrict any use of the information to criminally investigate or prosecute any alcohol or drug abuse patient.[facility] SystemIn the event this information is protected by the Federal Confidentiality of Alcohol and Drug Abuse Patient Records regulations: The Federal rules restrict any use of the information to criminally investigate or prosecute any alcohol or drug abuse patient.[facility] SystemIn the event this information is protected by the Federal Confidentiality of Alcohol and Drug Abuse Patient Records regulations: The Federal rules restrict any use of the information to criminally investigate or prosecute any alcohol or drug abuse patient.[facility] SystemIn the event this information is protected by the Federal Confidentiality of Alcohol and Drug Abuse Patient Records regulations: The Federal rules restrict any use of the information to criminally investigate or prosecute any alcohol or drug abuse patient.[facility] SystemIn the event this information is protected by the Federal Confidentiality of Alcohol and Drug Abuse Patient Records regulations: The Federal rules restrict any use of the information to criminally investigate or prosecute any alcohol or drug abuse patient.[facility] SystemIn the event this information is protected by the Federal Confidentiality of Alcohol and Drug Abuse Patient Records regulations: The Federal rules restrict any use of the information to criminally investigate or prosecute any alcohol or drug abuse patient.[facility] SystemIn the event this information is protected by the Federal Confidentiality of Alcohol and Drug Abuse Patient Records regulations: The Federal rules restrict any use of the information to criminally investigate or prosecute any alcohol or drug abuse patient.[facility] SystemIn the event this information is protected by the Federal Confidentiality of Alcohol and Drug Abuse Patient Records regulations: The Federal rules restrict any use of the information to criminally investigate or prosecute any alcohol or drug abuse patient.[facility] SystemIn the event this information is protected by the Federal Confidentiality of Alcohol and Drug Abuse Patient Records regulations: The Federal rules restrict any use of the information to criminally investigate or prosecute any alcohol or drug abuse patient.[facility] SystemIn the event this information is protected by the Federal Confidentiality of Alcohol and Drug Abuse Patient Records regulations: The Federal rules restrict any use of the information to criminally investigate or prosecute any alcohol or drug abuse patient.[facility] SystemIn the event this information is protected by the Federal Confidentiality of Alcohol and Drug Abuse Patient Records regulations: The Federal rules restrict any use of the information to criminally investigate or prosecute any alcohol or drug abuse patient.[facility] FOR RECORDS PERTAINING TO PATIENTS WHO ARE [...] BE BASED ON THE PRIMARY CLINICAL RECORDS. [facility] [employer] [facility]. provides no warranty or guarantee of the accuracy or completeness of information in this document.
== END 2023-08-18 09:57 | disposition home or self-care (01) ==
LOC: WC 09:56
PROVIDERS: Family Provider Family Medicine; PCP Family Medicine; Visit Provider Podiatrist Foot & Ankle Surgery
DX: E11.621 Type 2 diabetes mellitus with foot ulcer (principal); L97.412 Non-pressure chronic ulcer of right heel and midfoot with fat layer exposed; L97.511 Non-pressure chronic ulcer of other part of right foot limited to breakdown of skin; L97.912 Non-pressure chronic ulcer of unspecified part of right lower leg with fat layer exposed
CPT/HCPCS: 11042

== ENCOUNTER 2023-08-28 10:54 | Outpatient (OUT) | payer OTHER, SELFPAY ==
[2023-08-28 12:03] LABS: Anion Gap 15.4; BUN Creatinine Ratio 22.2; Calcium 9.1 mg/dL (8.5-10.1); Carbon Dioxide 26.8 mmol/L (21.0-32.0); Chloride 97 mmol/L (98-107); Estimated GFR (African America 31 (>=60); Estimated GFR (Non-African Ame 25 (>=60); Glucose 160 mg/dL (74-106); Potassium 4.2 mmol/L (3.5-5.1); Sodium 135 mmol/L (136-145)
== END 2023-08-28 10:55 | disposition home or self-care (01) ==
LOC: LAB 10:56
PROVIDERS: Family Provider Family Medicine; PCP Family Medicine; Visit Provider Family Medicine
DX: N17.9 Acute kidney failure, unspecified (principal); E11.22 Type 2 diabetes mellitus with diabetic chronic kidney disease; N18.32 Chronic kidney disease, stage 3b; Z79.4 Long term (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 insulin
CPT/HCPCS: 36415; 80048

== ENCOUNTER 2023-10-13 11:40 | Outpatient (OUT) | payer OTHER, SELFPAY ==
--- NOTE | 2023-10-13 | XR_ITS ---
[facility] [place] [id number] Patient Name: GREGG FOSTER MRN: [id number] date: 1955 Sex: M Assigned Patient Location: Current Patient Location: Accession/Order Number: [id number] Exam Date: 10/13/2023 10:20 Report Date: 10/16/2023 10:11 At the request of: LAISHA MOMIN Procedure: XR foot RT min 3V PROCEDURE: XR foot RT min 3V COMPARISON: 07/28/2023 HISTORY: RIGHT FOOT PAIN FINDINGS: BONES:No acute fracture or dislocation. Moderate enthesopathic spurring of the calcaneus at the Achilles insertion. Moderate degenerative changes of the first metatarsal-phalangeal joint. No focal or sclerotic changes SOFT TISSUES:Soft tissue defect lateral to the fifth metatarsal. EFFUSION:None visible. OTHER: Extensive vascular calcifications XR/XR foot RT min 3V IMPRESSION: Soft tissue defect lateral forefoot with no plain film evidence of osteomyelitis Electronically authenticated by: GEMINI MCGHEE Date: 10/16/2023 10:11
--- OUTSIDE RECORDS SUMMARY | 2023-10-13 11:50 | XMS_ITS | CCD ---
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 Superintendent Name Role Phone Jeff Cerda Unavailable AYDE NICOLE Unavailable Unavailab le VIGAYDE FINN Unavailable Unavailab le JEFF CERDA Unavailable Unavailable Ayde Nicole Unavailable Unavailable VigAyde finn Unavailable Unavailable PHYSICIAN, DEFAULT Unavailable Unavailable PHYSICIAN, DEFAULT Unavailable Unavailable JEF RAMOS Unavailable Unavailable AYDE NICOLE Unavailable Unavailable JEF RAMOS Unavailable Unavailable JEF RAMOS Unavailable Unavailable JEF RAMOS Unavailable Unavailable JEF RAMOS Unavailable Unavailable Jeff Cerda Primary Care Provider Jeff Cerda Primary Care Provider [phone] Jeff Cerda Primary Care Provider Jeff Cerda Primary Care Provider Unavaila ble Jeff Cerda Primary Care Provider Jeff Cerda MD Primary Care Provider [phone] AYDE MATTHEWS Referring Unavailable JEFF CERDA Primary Care Unavailable AYDE MATTHEWS Admitting Unavailable AYDE MATTHEWS Attending Unavailable AYDE MATTHEWS Referring Unavailable JEFF CERDA Primary Care Unavailable Jeff Cerda MD Primary Care Provider Jeff Cerda MD Primary Care Provider Jeff Cerda MD Primary Care Provider Shahab Buckley MD Unavailable Jeff Cerda MD Primary Care Provider Jeff Cerda MD Primary Care Provider [phone] Shahab Buckley MD Unavailable [phone] Jeff Cerda MD Primary Care Provider Jeff Cerda MD Primary Care Provider Jeff Cerda MD Primary Care Provider Shahab Buckley MD Unavailable [phone] Jeff Cerda MD Primary Care Provider GURWINDER TRUONG Attending Unavailable GURWINDER TRUONG Admitting Unavailable LIONEL NICHOLS Consulting Unavailable PRASHANT ., DR AMBRIZ Primary Care Unavailable LUIS BLOOM Consulting Unavailable Jeff Cerda MD Primary Care Provider Osiris Duran Consulting Unavailable NON STAFF Primary Care Unavailable Setessa, Firas Admitting Unavailable Meena Falcon Attending Unavailable Rebecca Liriano Consulting Unavailable Nakul Salcedo Consulting Unavailable Jef Aviles Consulting Unavail able Jason Manuel Consulting Unavailable Mike Corea Consulting Unavailab Delaney Blankenship Consulting Unavailable Ana Nielson Consulting Unavailable Ivon Dumont Consulting Unavailab Shelton oFster Consulting Unavailable Soledad Ho Consulting Unavailable Joyce Latham Consulting Unavailable JEFF CERDA Referring Unavailable HEMEJEFF ROCKWELL Primary Care Unavailable VIGESAA, RAFA S Referring Unavailable HEMEJEFF ROCKWELL Primary Care Unavailable HEMEJEFF ROCKWELL Primary Care Unavailable VIGESAA, RAFA S Referring Unavailable HEMELULI, JEFF Mcpherson Primary Care Unavailable VIGESAA, RAFA S Referring Unavailable HEMEJEFF ROCKWELL Primary Care Unavailable VIGESAA, RAFA S Referring Unavailable HEMEJEFF ROCKWELL Referring Unavailable HEMELULI, JEFF J Primary Care Unavailable HEMEYER, JEFF J Referring Unavailable HEMEYER, JEFF J Primary Care Unavailable VIGESAA, RAFA S Attending Unavailable VIGESAA, RAFA S Referring Unavailable HEMEJEFF ROCKWELL Primary Care Unavailable HEMEYER, JEFF J Referring Unavailable HEMEYER, JEFF Mcpherson Primary Care Unavailable HEMEYER, JEFF J Primary Care Unavailable VIGESAA, RAFA S [...] J Primary Care Unavailable Xander YAN MD, Daniel B Primary Care Provider [phone] Osiris Duran Consulting Unavailable NON STAFF Primary Care Unavailable Meena Falcon Admitting Unavailable Meena Falcon Attending Unavailable Rebecca Liriano Consulting Unavailable Nakul Salcedo Consulting Unavailable Jef Aviles Consulting Unavail able Jason Manuel Consulting Unavailable Mike Corea Consulting Unavailab Delaney Blankenship Consulting Unavailable Ana Nielson Consulting Unavailable Ivon Dumont Consulting Unavailab Shelton Foster Consulting Unavailable Soledad Ho Consulting Unavailable Joyce Latham Consulting Unavailable Sanjeev Ontiveros Consulting Unavailable Leuniyah [facility], Mikael Unavailable Jeff Cerda MD Primary Care Provider JEFF CERDA Primary Care Unavailable SHAHAB BUCKLEY Attending UnavailJeff Chaparro MD Primary Care Provider [phone] Jeff Cerda MD Unavailable FLOR VITALE Referring Unavailable JEFF CERDA Primary Care Unavailab le BRENDA TERRELL II Primary Care Unavailable MIRA TALBERT Referring Unavailable BRENDA TERRELL II Primary Care Unavailable MIRA TALBERT Referring Unavailable BRENDA TERRELL II Primary Care Unavailable MIRA TALBERT Referring Unavailable YANNICK ZUÑIGA Attending Unavailable YANNICK ZUÑIGA Referring Unavailable JEFF CERDA Primary Care Unavailab le HEMEYER, [facility] Primary Care Unavailab YANNICK De Referring Un[facility] Primary Care Unavailab CAROLINA Hernandez Attending Unavailabl e HEMEYER, [facility] Primary Care Unavailab Vida Acuña Attending Unavailable [facility] Primary Care Unavailab le WAZNI, OUSSAMA M Referring Unavailable [facility] Primary Care Unavailab le WAZNI, OUSSAMA M Referring Unavailable HEMEYER, [facility] Primary Care Unavailab LUC Ram Attending Unavailable HEMEYER, [facility] Primary Care Unavailab le HEMEYER, [facility] Primary Care Unavailab le CARTER-NLIAM, CHETE Admitting Unavailable TERRELL II, BRENDA B Primary Care Unavailable CAROLINA STOVER Attending Unavailabl e TERRELL II, BRENDA B Primary Care Unavailable YANNICK ZUÑIGA Attending Unavailable FANY TA Attending Unavailable WAZNI, OUSSAMA M Referring Un[facility] Primary Care Unavailab le CARTER-NLIAM, CHETE Referring Unavailable TERRELL II, BRENDA B Primary Care Unavailable TERRELL II, BRENDA B Primary Care Unavailable WAZNI, OUSSAMA M Referring Unavailable CARTER-NLIAM, CHETE Attending Unavailable CARTER-NLIAM, CHETE Admitting Unavailable TERRELL II, BRENDA B Primary Care Unavailable WAZNI, OUSSAMA M Referring Unavailable TERRELL II, BRENDA B Primary Care Unavailable YANNICK ZUÑIGA Referring Unavailable TERRELL II, BRENDA B Primary Care Unavailable YANNICK ZUÑIGA Referring Unavailable WAZNI, OUSSAMA M Referring Unavailable [facility] Primary Care Unavailab SHAHAB Baron Attending Unavailabl e LIZYER, EDWARD J Primary Care Unavailable SHAHAB BUCKLEY Admitting UnavailSHAHAB Cardenas Attending UnavailSHAHAB Cardenas Referring Unavailabl e LIZYER, EDWARD J Primary Care Unavailable PATITO ÁLVAREZ Admitting Unavailable HEMEYER, EDWARD J Primary Care Unavailable EVA MENDEZ Attending Unavailable SHAHAB BUCKLEY Consulting Unavailjanay e Medications Current Medications Medication Drug Class(es) Dates Sig (Normalized) Sig (Original) acetaminophen 325 mg / HYDROcodone bitartrate 5 mg oral tablet (1 source) Opioid Agonist Start: 11-23-2020 End: 11-23-2020 HYDROcodone-aceta minophen (NORCO) 5-325 MG per tablet 1 tablet apixaban 5 mg oral tablet (20 sources) Factor Xa Inhibitor Start: 09-05-2023 End: 09-15-2023 take 1 tablet by mouth twice daily apixaban 5 mg Tab Take 1 (one) tablet (5 mg total) by mouth 2 (two) times a day . 0 09/05/2023 Active Start: 05-12-2023 take 1 tablet by josé luis th twice daily apixaban (ELIQUIS) 5 mg tab(s) Take 1 tablet by mouth two times a day. 60 tablet 3 05/12/2023 Active Comment on above: Take 1 tablet by josé luis th two times a day. cholecalciferol 0.025 mg oral tablet (20 sources) Vitamin D take 2 tablets by mouth once daily cholecalciferol, vitamin D3, 1,000 unit tablet Take 2 (two) tablets (2,000 Units total) by mouth daily . 0 Active Cholecalciferol (VITAMIN D) 50 MCG (2000 UT) CAPS capsule Take 8,000 Units by mouth daily 0 Active take 4 capsules by m out once daily, then take 1 capsule by mouth Cholecalciferol (VITAMIN D) 2000 units C APS capsule Take 8,000 Units by mouth daily 0 Active clopidogrel 75 mg oral tablet (20 sources) [id number] Platelet Inhibitor Start: 12-08-2021 End: 09-15-2023 take 1 tablet by mouth once daily clopidogreL (PLAVIX) 75 mg tablet TAKE 1 TABLET BY MOUTH EVERY DAY 30 tablet 11 12/21/2022 Active Comment on above: Take 1 tablet by josé luis th once daily. collagenase 0.25 unt/mg topical ointment (1 source) Collagen-specific Enzyme Start: 08-26-2023 SantyL ointment Apply topically daily Right Heel . 0 08/26/2023 Active Continuous Blood Gluc Camp Coordinator (FreeStyle Enmanuel 2 [place]) device (1 source) Start: 06-02-2023 End: 06-01-2024 Continuous Blood Gluc Camp Coordinator (FreeStyle Enmanuel 2 [place]) device Indications: Type 2 diabetes mellitus with diabetic polyneuropathy, with long-term current use of insulin (CMS/HCC) , half-way current use of insulin (CMS/HCC) , Type 2 diabetes mellitus with both eyes affected by mild nonproliferative retinopathy without macular edema, with long-term current use of insulin (CMS/HCC) , Type 2 diabetes mellitus with stage 3b chronic kidney disease, with long-term current use of insulin (HCC) (CMS/HCC) 1 each continuously. 1 each 0 06/02/2023 06/01/2024 Active Continuous Blood Gluc Sensor (FreeStyle Enmanuel 2 Sensor) mis (1 source) Start: 06-02-2023 End: 11-17-2023 Continuous Blood Gluc Sensor (FreeStyle Enmanuel 2 Sensor) [facility] Indications: Type 2 diabetes mellitus with diabetic polyneuropathy, with long-term current use of insulin (CMS/HCC) , manager intermediate current use of insulin (CMS/HCC) , Type 2 diabetes mellitus with both eyes affected by mild nonproliferative retinopathy without macular edema, with long-term current use of insulin (CMS/HCC) , Type 2 diabetes mellitus with stage 3b chronic kidney disease, with long-term current use of insulin (HCC) (CMS/HCC) 1 each every 14 (fourteen) days. 6 each 1 06/02/2023 11/17/2023 Active 1 ml diphenhydrAMINE hydrochloride 50 mg/ml cartridge (1 source) Histamine-1 Receptor Antagonist Start: 11-23-2020 End: 11-23-2020 diphenhydrAMINE (BENADRYL) injection 12.5 mg sprinkle DULoxetine 20 mg delayed release oral capsule (20 sources) Serotonin and Norepinephrine Reuptake Inhibitor Start: 05-02-2023 End: 10-29-2023 take 1 capsule by mouth in the morning DULoxetine HCl 20 MG Capsule Delayed Release Sprinkle Indications: Current moderate episode of major depressive disorder without prior episode (HCC) (CMS/HCC) Take 20 mg by mouth in the morning. 90 capsule 1 05/02/2023 10/29/2023 Active Start: 01-26-2022 End: 09-15-2023 take 1 capsule by mouth once daily DULoxetine (CYMBALTA) 20 MG capsule TAKE 1 CAPSULE BY MOUTH EVERY DAY FOR 30 DAYS 0 01/26/2022 Active Comment on above: Take 1 capsule by [facility] once daily. famotidine 20 mg oral tablet (1 source) Histamine-2 Receptor Antagonist take 1 tablet by mouth twice daily famotidine (PEPCID) 20 MG tablet Take 20 mg by mouth 2 (two) times a day. Active FreeStyle Enmanuel 2 Sensor Kit (1 source) Start: 09-18-2023 FreeStyle Enmanuel 2 Sensor Kit USE 1 SENSOR EVERY 14 DAYS 0 09/18/2023 Active furosemide 20 mg oral tablet (20 sources) Loop Diuretic Start: 02-11-2019 End: 09-06-2023 take 20 mg by mouth twice daily 20 mg, Oral, 2 times daily, First dose on Mon12/28/21 at 2100 Start: 09-01-2017 take 2 tablets by mo ut once daily in the morning, then take 1 tablet by mouth once daily in the evening furosemide (LASIX) 20 MG tablet TAKE 2 TABLETS BY MOUTH EVERY MORNING AND 1 TABLET BY MOUTH EVERY EVENING 90 tablet 11 09/08/2022 Active take 2 tablets by mo ut twice daily furosemide (LASIX) 20 MG tablet Take 20 mg by mouth 2 (two) times a day 2 tablets . 0 Active furosemide (LASI X) 10 mg/mL solution Take by mouth daily. Active Comment on above: Take 2 tablets by mo [facility] once daily. gabapentin 300 mg oral capsule (20 sources) Anti-epileptic Agent Start: 12-29-2021 End: 01-28-2022 gabapentin (NEURONTIN) 300 MG capsule Take 1 (one) capsule (300 mg total) by mouth every 8 (eight) hours (Days supply per fill: 4) . 90 capsule 0 12/29/2021 Active Start: 12-29-2021 take 1 capsule by mo [facility] twice daily gabapentin (NEURONTIN) 300 mg capsule Take 300 mg by mouth twice daily. 0 12/29/2021 Active Start: 12-28-2021 End: 12-29-2021 take 300 mg by mouth every eight hours 300 mg, Oral, Every 8 hours scheduled, First dose on Mon12/28/21 at 2200 take 1 capsule by mo ut three times daily gabapentin (NEURONTIN) 300 MG capsule Take 300 mg by mouth 3 times daily. 0 Active Comment on above: Take 300 mg by mouth twice daily. 1 ml HYDROmorphone hydrochloride 1 mg/ml cartridge (4 sources) Opioid Agonist Start: 11-23-2020 HYDROmorphone (DILAUDID) injection 0.5 mg Start: 04-19-2021 HYDROmorphone (DILAUDID) injection 0.25 mg 24 hr isosorbide mononitrate 30 mg extended release oral tablet (20 sources) Nitrate Vasodilator Start: 03-17-2022 take 1 tablet by mouth once daily isosorbide mononitrate (IMDUR) 30 MG extended release tablet TAKE 1 TABLET BY MOUTH EVERY DAY 30 tablet 11 03/17/2022 Active Start: 02-11-2019 End: 09-13-2023 take 1 tablet by mouth once daily isosorbide mononitrate (IMDUR) 30 MG extended release tablet TAKE 1 TABLET BY MOUTH EVERY DAY 30 tablet 03/17/2021 Active 1 ml meperidine hydrochloride 50 [...] 11-23-2020 promethazine (PHENERGAN) inj ection 6.25 mg sacubitril 49 mg / valsartan 51 mg oral tablet (20 sources) Angiotensin 2 Receptor Alexa Start: 04-13-2023 End: 07-11-2024 take 1 tablet by mouth twice daily sacubitril-valsartan (ENTRESTO) 49-51 mg tablet Take 1 tablet by mouth two times a day. 180 tablet 3 07/12/2023 07/11/2024 Active Start: 04-13-2023 take 1 tablet by josé luis th in the morning sacubitril-valsartan (Entresto) 49-51 MG tablet Take 1 tablet by mouth in the morning and 1 tablet in the evening. 0 04/13/2023 Active Start: 02-12-2023 take 1 tablet by josé [...] MOUTH TWICE A DAY 60 tablet 11 10/14/2021 Active Start: 10-01-2019 take 49-51 mg by mouth once sa cubitril-valsartan (ENTRESTO) 49-51 MG per tablet Take 1 tablet by mouth 2 times daily 60 tablet 11 10/01/2019 Active End: 10-17-2019 take 24-26 mg by mouth once sacubitril-valsartan (ENTR ESTO) 24- 26 MG per tablet Take 1 tablet by mouth 2 times daily Samples x2 lot #[id number] exp date 07/27 0 10/17/2019 Discontinued (DOSE ADJUSTMENT) Comment on above: Take 1 tablet by josé luis th every 12 hours. Take 1 tablet by josé luis th twice daily. Take 1 tablet by josé luis th two times a day. 72 hr scopolamine 0.0139 mg/hr transdermal system (1 source) Anticholinergic Start: 11-23-2020 scopolamine (TRANSDERM-SCOP) transdermal patch 1 patch warfarin sodium 2.5 mg oral tablet (20 [...] DIRECTED 30 tablet 5 08/24/2022 Active Start: 06-01-2022 End: 08-24-2022 take 1 tablet by mouth once daily warfarin (COUMADIN) 2.5 MG tablet TAKE 1 TABLET BY MOUTH EVERY DAY OR DIRECTED 30 tablet 5 07/25/2022 08/24/2022 Discontinued (DOSE ADJUSTMENT) Start: 02-15-2022 End: 06-01-2022 warfarin (COUMADIN) 2.5 MG t ablet Take 1/2 tablet (1.25 mg warfarin) on Tuesdays, , Saturdays, and Sundays or as directed. Managed by [facility] 90 tablet 1 02/15/2022 06/01/2022 Discontinued (DOSE ADJUSTMENT) Start: 02-15-2022 End: 02-22-2022 warfarin (COUMADIN) 5 MG tab let Take 1/2 tablet (2.5 mg warfarin) on Mondays, Wednesdays, and Fridays or as directed. Managed by [facility] 30 tablet 3 02/15/2022 02/22/2022 Discontinued (DOSE ADJUSTMENT) Start: 01-27-2022 warfarin (COUM JONH) 2.5 MG tablet Take 1/2 tablet daily or as directed. Managed by [facility] 90 tablet 1 01/27/2022 Active Start: 01-13-2022 End: 09-06-2023 warfarin (COUMADIN) 5 MG tab let Take 1/2 tablet EVERY DAY of the week (except skip Fridays) or as directed. Managed by [facility] 90 tablet 3 01/20/2022 01/27/2022 Discontinued [...] 325 mg oral tablet (20 sources) Start: 09-13-2023 End: 09-15-2023 take 1 tablet by mouth every four hours as needed for pain and headache 650 mg, Oral, Every 4 hours PRN, mild pain, fever 100.4 F or greater, headaches, Starting on Mon09/13/23 at 1630 Start: 12-29-2021 End: 01-08-2022 take 2 tablets [...] tablet by josé luis th once daily acetaminophen (TYLENOL) 500 MG tablet Take 1 (one) tablet (500 mg total) by mouth nightly . 0 Active take 2 tablets by mo uth at bedtime acetaminophen (TYLENOL) 500 MG tablet Take 1,000 mg by mouth in the morning and at bedtime 0 Active acetaminophen 325 mg / oxyCODONE hydrochloride 5 [...] daily. 90 tablet 3 04/13/2023 Active Start: 04-13-2023 allopurinol (Z yloprim) 100 MG tablet Take 50 mg by mouth in the morning. 0 04/13/2023 Active Start: 03-01-2023 take 1 tablet by josé luis th once daily allopurinol (ZYLOPRIM) 300 mg tablet Take 1 tablet by mouth once daily. 0 03/01/2023 Suspended take 1 tablet by josé luis th once daily, then take 0.5 tablet by mouth once daily allopurinoL (ZYLOPRIM) 100 MG tablet Take 1 (one) tablet (100 mg total) by mouth daily 1/2 tablet one time daily . 0 Active take 3 tablets by mo uth once daily in the morning allopurinol (ZYLOPRIM) 100 MG tablet Take 3 tablets by mouth every morning 0 Active Comment on above: Take 1 tablet by josé luis th once daily. Take a half tablet b y mouth once daily. amoxicillin 500 mg / clavulanate 125 mg oral tablet (20 sources) Penicillin-class Antibacterial Start: 3 End: 4 take 1 tablet by mouth every eight hours amoxicillin-clavulan ic acid (AUGMENTIN) 500-125 mg per tablet Take 1 tablet by mouth every 8 hours. 90 tablet 0 04/13/2023 09/18/2023 Discontinued (Discontinued by another Health Care Provider) Start: 04-13-2023 amoxicillin-cl avulanate (Augmentin) 500-125 MG tablet Take 500 mg by mouth in the morning and 500 mg at noon and 500 mg in the evening. 0 04/13/2023 Active Comment on above: Take 1 tablet by josé luis every 8 hours. aspirin 81 mg delayed release oral tablet (20 sources) Nonsteroidal Anti-inflammatory Drug Start: 12-29-2021 End: 09-06-2023 take 81 mg by mouth once daily 81 mg, Oral, Daily, First dose on Mon12/29/21 at 0900 DO NOT CRUSH OR CHEW. take 1 tablet by mouth once joseph y aspirin 325 MG tablet Take 325 mg by mouth daily. Active Comment on above: Take 1 tablet by josé luis once daily. atorvastatin 40 mg oral tablet (20 sources) HMG-CoA Reductase Inhibitor Start: 09-13-2023 End: 09-15-2023 take 80 mg by mouth once daily 80 mg, Oral, Nightly, First dose on Mon09/13/23 at 2100 Start: 01-09-2023 take 1 tablet by josé luis once daily atorvastatin (LIPITOR) 80 MG tablet TAKE 1 TABLET BY MOUTH DAILY . 30 tablet 11 01/09/2023 Active Start: 12-29-2021 End: 04-27-2022 take 1 tablet by mouth once daily atorvastatin (Lipitor) 80 MG tablet Take 1 (one) tablet (80 mg total) by mouth daily . 30 tablet 01/25/2022 Active Comment on above: Take 1 [...] of Pre-procedure dose. Indication (POST PROCEDURE): Cardiothoracic colchicine 0.6 mg oral tablet (4 sources) [...] for Anxiety. 0 01/27/2022 Discontinued (LIST CLEANUP) doxycycline hyclate 50 mg oral capsule (8 sources) Tetracycline-class Drug Start: 09-05-19 take 1 capsule by mouth twice daily doxycycline (VIBRAMYCIN) 50 mg capsule Take 1 capsule by mouth two times a day. 0 09/05/2023 Active take 1 tablet by mouth twice rossi ly doxycycline (ADOXA) 50 MG tablet Take 1 (one) tablet (50 mg total) by mouth 2 (two) times a day . 0 Active Comment on above: Take 1 capsule by [facility] two times a day. empagliflozin 10 mg oral tablet (20 sources) Sodium-Glucose Cotransporter 2 Inhibitor Start: 04-13-20 take 1 tablet by mouth once daily empagliflozin (JARDIANCE) 10 mg tablet Take 1 tablet by mouth once daily. 90 tablet 3 04/13/2023 Active Comment on above: Take 1 tablet by [facility] once daily. FIBER COMPLETE PO (20 sources) [...] Take 1 tablet by mouth 0 Active Gadoterate Meglumine 0.5 Mmol/Ml Intravenous Solution (1 source) Start: 09-18-2017 End: 09-18-2017 gadoterate meglumine (DOTAREM) injection 40 mL 40 mL, Intravenous, Once in imaging, contrast, Starting 09/18/17 at 0949, For 1 dose Contrast Administered 09/18/2017 09:50 EST 40 mL 250 ml heparin sodium, porcine 100 unt/ml injection (2 sources) Unfractionated Heparin, Anti-coagulant Start: 09-13-2023 End: 09-14-2023 heparin (porcine) 25,000 unit/250 mL(100 unit/mL) in D5W infusion Start: 12-28-2021 End: 12-28-2021 heparin (porcine) injection 5,000 Units heparin bolus from bag 0-5,000 Units (1 source) Start: 09-13-2023 End: 09-14-2023 heparin bolus from bag 0-5,000 Units hydrALAZINE hydrochloride 25 mg oral tablet [...] (IC-GREEN) syringe 5 mg (1 source) Start: 11-23-2020 End: 11-23-2020 indocyanine green (IC-GREEN) syringe 5 mg 3 ml insulin detemir 100 unt/ml pen injector (20 sources) Insulin Analog Start: 04-13-2023 End: 09-13-2023 insulin detemir U-100 (LEVEMIR FLEXPEN) 100 unit/mL (3 mL) injection pen Inject 30 Units subcutaneously every morning. 15 mL 0 04/13/2023 Active Start: 04-13-2023 Levemir FlexTo uch 100 UNIT/ML pen Inject 30 Units under the skin in the morning. 0 04/13/2023 Active Comment on above: Inject 30 Units subc utaneously every morning. insulin glargine 100 unt/ml injectable solution (20 sources) Insulin Analogue Start: 12-29-19 End: 12-30-19 inject 75 [IU] by subcutaneous injection once daily 75 Units, Subcutaneous, Nightly, First dose on Mon12/28/21 at 2100 Do not mix with other insulins in a syringe. Do NOT hold basal insulin without notifying physician inject 30 [IU] by collins bcutaneous injection once daily in the morning insulin glargine (LANTUS) 100 unit/mL injection Inject 30 (thirty) Units under the skin every morning . 0 Active insulin glargine (LANTUS) 100 UNIT/ML injection vial Inject 75 Units into the skin nightly 0 Active Comment on above: Inject 75 Units subc utaneously daily at bedtime. insulin lispro 100 unt/ml injectable solution (13 sources) Insulin Analog Start: 09-13-2023 End: 09-15-2023 insulin lispro (AdmeLOG,HumaLOG) injection 0-30 Units Start: 05-18-2023 End: 11-14-2023 insulin lispro (HumaLOG KWIK PEN) 200 UNIT/ML solution pen-injector pen Indications: Hyperglycemia , Type 2 Diabetes Mellitus Inject 24 Units under the skin in the morning and 24 Units at noon and 24 Units in the evening. Inject with meals. 32.4 mL 1 05/18/2023 11/14/2023 Active Start: 04-13-2023 insulin lispro (HUMALOG KWIKPEN) 100 unit/mL Inject 24 Units subcutaneously with MEALS. 15 mL 0 04/13/2023 Active Comment on above: Inject 24 Units subc utaneously with MEALS. insulin lispro (AdmeLOG,HumaLOG) injection 0-15 Units (1 source) Start: End: insulin lispro (AdmeLOG,HumaLOG) injection 0-15 Units insulin lispro (HUMALOG KWIKPEN) 100 unit/mL (19 sources) Start: insulin lispro (HUMALOG KWIKPEN) 100 unit/mL Inject 24 Units subcutaneously with MEALS. 15 mL 0 04/13/2023 Active Comment on above: Inject 24 Units subc utaneously with MEALS. Iopamidol (1 source) Radiographic Contrast Agent Start: End: iopamidol (ISOVUE-370) 76 % injection 75 mL iopamidoL (ISOVUE-370) 370 mg iodine /mL (76 %) injection 125 mL (1 source) Start: End: iopamidoL (ISOVUE-370) 370 mg iodine /mL (76 %) injection 125 mL losartan potassium 50 mg oral tablet [...] receive intra-arterial iodinated contrast. Start: 12-25-2017 End: 09-06-2023 take 1 tablet by mouth twice daily at mealtime metFORMIN (GLUCOPHAGE) 1000 MG tablet Take 1 tablet by mouth 2 times daily (with meals) 60 tablet 3 12/25/2017 Active Start: 12-25-2017 End: 04-26-2023 take 1 tablet by mouth twice daily at mealtime metFORMIN (GLUCOPHAGE) 850 mg tablet Take 850 mg by mouth twice daily with meals. 0 12/25/2017 04/26/2023 Discontinued Start: 12-25-2017 metFORMIN (GLU COPHAGE) 1,000 mg tablet Take 850 mg by mouth once daily. 0 12/25/2017 Suspended Comment on above: Take 850 mg by mouth once daily. Take 850 mg by mouth twice daily with meals. 24 hr metoprolol succinate 25 mg extended release oral tablet (20 sources) beta-Adrenergic Alexa Start: 09-13-2023 End: 09-15-2023 take 25 mg by mouth once daily 25 mg, Oral, Daily, First dose on Mon09/13/23 at 1800 DO NOT CRUSH OR CHEW. Start: 04-13-2023 take 1 tablet by jsoé luis th twice daily metoprolol succinate ER (TOPROL XL) 25 mg 24 hr tablet Take 1 tablet by mouth two times a day. 90 tablet 3 09/05/2023 Active Start: 04-13-2023 take 1 tablet by josé luis th every twenty-four hours in the morning metoprolol succinate XL (Toprol-XL) 25 MG 24 hr tablet Take 25 mg by mouth in the morning and 25 mg before bedtime. 0 04/13/2023 Active Start: 09-08-2022 take 1 tablet [...] 10/17/2019 Active take 2 tablets by mo uth once daily metoprolol succinate (TOPROL-XL) 25 MG [...] josé luis th two times a day. naloxone (NARCAN) injection 0.1 mg (1 source) Start: 12-29-19 End: 12-30-19 naloxone (NARCAN) injection 0.1 mg olmesartan medoxomil 20 mg oral tablet (6 sources) Angiotensin 2 Receptor Alexa End: 12-29-19 take 1 tablet by mouth once daily olmesartan (BENICAR) 20 MG tablet Take 20 mg by mouth daily Not taking . 0 12/28/2021 Discontinued ondansetron 4 mg oral tablet (13 sources) Serotonin-3 Receptor Antagonist Start: 01-21-20 End: 06-01-20 take 1 tablet by mouth three times daily as needed ondansetron (ZOFRAN) 4 MG tablet Take 4 mg by mouth 3 times daily as needed 0 01/20/2022 06/01/2022 Discontinued (Therapy completed) ondansetron (ZOFRAN-ODT) disintegrating tablet 4 mg (1 source) Start: 09-13-19 End: 09-15-19 take 1 tablet by mouth every six hours as needed for nausea and vomiting ondansetron (ZOFRAN-ODT) disintegrating tablet 4 mg perflutren lipid microspheres (DEFINActinium Pharmaceuticals) 0.143 mg/mL solution 0-10 mL of mixture (2 sources) Start: 09-13-19 End: 09-15-19 perflutren lipid microspheres (DEFINITY) 0.143 mg/mL solution 0-10 mL of mixture Start: 12-28-2021 End: 12-29-2021 perflutren lipid microsphere s (DEFINITY) 0.143 mg/mL solution 0-10 mL of mixture perflutren lipid microspheres 1.3 mL in NaCl (PF) 0.9% 10 mL injection (DEFINActinium Pharmaceuticals) (1 source) Start: 09-18-2023 End: 09-18-2023 perflutren lipid microspheres 1.3 mL in NaCl (PF) 0.9% 10 mL injection (DEFINITY) regadenoson (LEXISCAN) injection 0.4 mg (1 source) Start: 08-19-2019 End: 08-19-2019 regadenoson (LEXISCAN) injection 0.4 mg simvastatin 40 mg oral tablet (20 sources) HMG-CoA Reductase Inhibitor Start: 12-28-2021 End: 01-06-2022 take 40 mg by mouth once daily 40 mg, Oral, Nightly, First dose on Mon12/28/21 at 2100 1000 ml sodium chloride 9 mg/ml injection (4 sources) Start: 09-14-2023 End: 09-14-2023 sodium chloride 0.9% (NS) Start: 09-13-2023 End: 09-15-2023 sodium chloride (PF) (NS) fl ush 5 mL Start: 08-19-2019 End: 08-20-2019 sodium chloride (PF) 0.9 % i njection 10 mL Start: 08-12-2019 End: 08-12-2019 0.9 % sodium chloride bolus spironolactone 25 mg oral tablet (20 sources) Aldosterone Antagonist Start: 01-18-2023 take 1 tablet by mouth once daily spironolactone (ALDACTONE) 25 mg tablet Take 1 tablet by mouth once daily. 0 01/18/2023 Suspended Start: 01-24-2022 take 1 tablet by josé luis th once daily spironolactone (ALDACTONE) 25 MG tablet TAKE 1 TABLET BY MOUTH EVERY DAY 30 tablet 01/24/2022 Active Start: 02-11-2019 End: 09-06-2023 take 1 tablet by mouth once daily spironolactone (ALDACTONE) 25 MG tablet TAKE 1 TABLET BY MOUTH EVERY DAY 30 tablet 02/17/2021 Active Comment on above: Take 1 tablet by josé luis th once daily. technetium sestamibi (CARDIOLITE) injection 30 millicurie (1 source) Start: 08-19-2019 End: 08-19-2019 technetium sestamibi (CARDIOLITE) injection 30 millicurie torsemide 20 mg oral tablet (20 sources) Loop Diuretic Start: 09-13-2023 End: 09-15-2023 take 80 mg by mouth twice daily 80 mg, Oral, 2 times daily, First dose on Mon09/13/23 at 2100 Start: 04-13-2023 End: 04-25-2024 take 4 tablets [...] twice daily. Take 4 tablets by mo [facility] twice daily. traZODone hydrochloride 50 mg oral tablet (1 source) Serotonin Reuptake Inhibitor Start: 09-13-2023 End: 09-15-2023 take 50 mg by mouth once daily as needed for sleep 50 mg, Oral, Nightly PRN, sleep, Starting on Mon09/13/23 at 1630 May repeat times 1 in 30 minutes if still awake. 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] Onset: 01-02-2023 Episodic Other aftercare (1 source) manager intermediate (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 insulin; 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: [SNF CURRENT USE OF INSULIN] Onset: 01-02-2023 Episodic Other aftercare (1 source) manager intermediate (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 oral hypoglycemic drugs; 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: [SNF USE ORAL HYPOGLYCEMIC DX] Onset: 01-02-2023 Episodic Other aftercare (1 source) Drug therapy finding; 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: [half-way (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] 09-20-2023 Episodic Other and ill-defined heart disease (20 [...] and grafts] Onset: 01-03-2023 03-20-2023 Chronic Other circulatory disease (1 source) Ischemia of right lower extremity; 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: [Other disorder of circulatory system] Onset: 10-03-2023 10-03-2023 Episodic Other connective tissue disease (2 sources) Pain [...] nutritional; endocrine; and metabolic disorders (1 source) Obesity; 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: [Obesity, unspecified] Onset: 01-03-2023 01-03-2023 Chronic Other nutritional; endocrine; and metabolic disorders (1 source) Other disorders of bilirubin metabolism; 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] Onset: 03-20-2023 Chronic Other screening for suspected conditions (not mental disorders or infectious disease) (4 sources) Increased bilirubin level; 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: [Serum creatinine raised] Onset: 03-15-2023 Episodic Promise-; endo-; and myocarditis; cardiomyopathy (except that caused by tuberculosis or sexually transmitted disease) (20 sources) Cardiomyopathy; 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: [Cardiomyopathy, unspecified] Onset: 09-01-2017 09-01-2017 Chronic Peripheral and visceral atherosclerosis (20 sources) Peripheral vascular disease, unspecified; 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: [Peripheral vascular disease, unspecified] Onset: 06-23-2017 03-20-2023 Chronic Pulmonary heart disease (2 sources) Pulmonary hypertension; 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: [Pulmonary hypertension, unspecified] Onset: 09-19-2023 09-19-2023 Chronic Residual codes; unclassified (20 sources) Dependence [...] 10-31-2017 Unclassified (1 source) New Patient / [id number]() Onset: 09-25-2017 Unclassified (1 source) Dx: Frequent [...] sources) Long-term current use of anticoagulant; 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: [half-way (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] Onset: 08-01-2018 08-01-2018 Episodic Other aftercare (3 sources) manager intermediate (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; 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: [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] Onset: 08-01-2018 Episodic Other aftercare (20 sources) Taking high risk medication; 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: [Other half-way (current) drug therapy] Onset: 08-23-2020 03-20-2023 Episodic Other aftercare (20 sources) Long-term current use of insulin; 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: [manager intermediate (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 insulin] Onset: 08-21-2017 03-20-2023 Episodic Other aftercare (20 sources) Polypharmacy ; 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: [Other half-way (current) drug therapy] Onset: 08-23-2020 03-20-2023 Episodic [...] Test Name Value Interpretation Reference Range Facility ICD REMOTE CHECKon AV Delay Adaptive Paced Minimum (ms) 140 ms [facility] AV Delay Adaptive Sensed Minimum (ms) 100 ms [facility] Federico LV Pacing Amplitude (volts) 2.3 V [facility] Federico LV Pacing Pulse Width (ms) 0.5 ms [facility] federico LV Sensing Amplitude (mvolts) 1.0 mV [facility] Federico RA Pacing Amplitude (volts) 2.0 V [facility] Federico RA Pacing Polarity BI [facility] Federico RA Pacing Pulse Width (ms) 0.4 ms [facility] Federico RA Sensing Amplitude (mvolts) 0.25 mV [facility] Federico RA Sensing Polarity BI [facility] Federico RV Pacing Amplitude (volts) 2.0 V [facility] Federico RV Pacing Polarity BI [facility] Federico RV Pacing Pulse Width (ms) 0.4 ms [facility] Federico RV Sensing Amplitude (mvolts) 0.3 mV [facility] Federico RV Sensing Polarity BI [facility] Detection Configuration (Vent) 2 - Zone [facility] FastVT_Detection Interval 300 ms [facility] FastVT_Therapy Configuration 1 ATP(s) + 8 Shock(s) [facility] ICD FastVT DetectionStatus ENABLED [facility] ICD-AMS EPISODES 170 {beats}/min [facility] ICD-ATP Episodes (Vent) 4 [facility] ICD-ATRIALFIBRILLATIO N 77 [facility] ICD-ATRIALTACHYCARDIA 77 [facility] ICD-ATRIALTACHYCARDIA 28 [facility] ICD-ATRIALTACHYCARDIA 22 [facility] ICD-ATRIALTACHYCARDIA 4 [facility] ICD-Device Mfg BSX [facility] ICD-Fast Ventricular Tachycardia 22 [facility] ICD-Fast Ventricular Tachycardia 4 [facility] ICD-Fast Ventricular Tachycardia 0 [facility] ICD-LEADIMPEDANCEATRI AL 828 ohm [facility] ICD-Percent Pacing (Atrial) 0 % [facility] ICD-Percent Pacing (Vent) 82 % [facility] ICD-Shocks Aborted (Vent) 0 [facility] [id number] 0 [facility] ICD-SHOCKSABORTED 0 [facility] ICD-SHOCKSDELIVEREDVE NTRICULAR 0 [facility] ICD-Ventricular Fibrillation 0 [facility] Implant Date 10/18/2017 [facility] Lead Impedance (LV) 930 ohm [facility] Lead Impedance (RV) 514 ohm [facility] Lead Impedance High Voltage 89 ohm [facility] Lead1 Mfg X [facility] Lead2 Mfg X [facility] Lead3 Mfg BSX [facility] Location LV [facility] Location RA [facility] Location RV [facility] Lower Rate (bpm) 60 {beats}/min [facility] LV PACING % 90 % [facility] Max Sensor Rate (bpm) 130 {beats}/min [facility] MDT_PROG_TACHY_ZONE_D ETECTIONS_STATUS ENABLED [facility] Model G247 VIGILANT X4 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 MACHINE 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-D Cl [facility] Model 4671 Acuity X4 Straight [facility] Model 7841 Ingevity + MRI [facility] Model 0292 [place] Relianc e 4-Site SG [facility] Pacing Mode DDD [facility] Serial Number [id number] [facility] Serial Number [id number] [facility] Serial Number [id number] [facility] Serial Number [id number] [facility] Test Charge Time 10.2 s [facility] Therapy Status (Vent) Enabled [facility] Thresh LV Capture Amplitude (volts) 0.9 V [facility] Thresh LV Capture Duration (ms) 0.5 ms [facility] Thresh RV Capture Amplitude (VOLTS) 0.7 V [facility] Thresh RV Capture Duration (MS) 0.4 ms [facility] Tracking Rate (bpm) 130 {beats}/min [facility] VF Zone Detection Interval 300 ms [facility] VF Zone Therapy Configuration 1 ATP(s) + 8 Shock(s) [facility] No Panel Informationon 10-08 BLANK _ [facility] ICD-ATRIALTACHYCARDIA 0 [facility] Implant Date 03/31/2023 [facility] US ANKLE/BRACHIAL INDICES EX TREMITY LIMITEDon 10-03-2023 US ANKLE/BRACHIAL INDICES EXTREMITY LIMITED Patient Info Name: GREGG FOSTER Age: 68 years : 1955 Gender: Male Exam Date: 10/03/2023 1:50 PM Patient Status: Outpatient Colon Therapist: Maria De Jesus Majano Referring Physician: SHAHAB BUCKLEY MD; Indications I73.9 - Peripheral vascular disease, unspecified Procedure Description 99256 Limited bilateral noninvasive physiologic studies of upper or lower extremity arteries with bidirectional Doppler/PVR waveform analysis at 1-2 levels. Conclusions * Right. * Right ankle brachial index is not accurate due to vessel wall calcification. Based on waveform criteria, there is mild peripheral artery disease. * Moderate small vessel disease at the transmetatarsal level in the right foot. * Right toe brachial index is abnormal. * Left. * Left ankle brachial index is not accurate due to vessel wall calcification. Based on waveform criteria, this is a normal resting arterial evaluation. * Moderate small vessel disease at the transmetatarsal level in the left foot. * Left toe brachial index is abnormal. Recommendations * Mild bilateral lower extremity PAD with slightly blunted waveforms and diminished perfusion pressures at the level of both ankles. Lower extremity arterial duplex, if clinically indicated. . Doppler Rt Posterior Tibial: Biphasic Rt Dorsalis Pedis: Biphasic Lt Posterior Tibial: Triphasic Lt Dorsalis Pedis: Biphasic PVR Findings . Left ankle brachial pressure was obtained multiple times and is not diagnostic due to motion artifact. PVR Rt Ankle: Abnormal Lt Ankle: Abnormal Rt Digit: Abnormal Lt Digit: Abnormal Segmental BP Findings Left brachial pressure not obtained due to IV location. Rt Brachial: 105 Rt Posterior Tibial: 254 Rt Dorsalis Pedis: 77 Rt Digit: 43 2.44 0.73 0.41 Lt Posterior Tibial: 254 Lt Dorsalis Pedis: 254 Lt Digit: 41 2.44 2.44 0.39 Prior Study Date: 09/14/2023 Risk Factors Patient has a history of hypertension, hyperlipidemia, diabetes and PAD. . Report Signatures Finalized by Joshua Jara MD on 10/03/2023 03:57 PM Normal [facility] CV IR ANGIO RIGHT LOWER EXTR EMITYon 09-27-2023 CV IR ANGIO RIGHT LOWER EXTREMITY Please see OpNote in Notes tab for results. Please see OpNote in Notes tab for results. Please see OpNote in Notes tab for results. Normal [facility] ICD REMOTE CHECKon AV Delay Adaptive Paced Minimum (ms) 140 ms [facility] AV Delay Adaptive Sensed Minimum (ms) 100 ms [facility] Federico LV Pacing Amplitude (volts) 2.3 V [facility]ico LV Pacing Pulse Width (ms) 0.5 ms [facility] federico LV Sensing Amplitude (mvolts) 1.0 mV [facility] [place] RA Pacing Amplitude (volts) 2.0 V [facility] [place]ico RA Pacing Polarity BI [facility] [place] RA Pacing Pulse Width (ms) 0.4 ms [facility] Fed[place]ico RA Sensing Amplitude (mvolts) 0.25 mV [facility] [place]ico RA Sensing Polarity BI [facility] [place] RV Pacing Amplitude (volts) 2.0 V [facility] [place] RV Pacing Polarity BI [facility] [place] RV Pacing Pulse Width (ms) 0.4 ms [facility] [place] RV Sensing Amplitude (mvolts) 0.3 mV [facility] [place]ico RV Sensing Polarity BI [facility] Detection Configuration (Vent) 2 - Zone [facility] FastVT_Detection Interval 300 ms [facility] FastVT_Therapy Configuration 1 ATP(s) + 8 Shock(s) [facility] ICD FastVT DetectionStatus ENABLED [facility] ICD-AMS EPISODES 170 {beats}/min [facility] ICD-ATP Episodes (Vent) 4 [facility] ICD-ATRIALFIBRILLATIO N 77 [facility] ICD-ATRIALTACHYCARDIA 77 [facility] ICD-ATRIALTACHYCARDIA 28 [facility] ICD-ATRIALTACHYCARDIA 22 [facility] ICD-ATRIALTACHYCARDIA 4 [facility] ICD-Device Mfg BSX [facility] ICD-Fast Ventricular Tachycardia 22 [facility] ICD-Fast Ventricular Tachycardia 4 [facility] ICD-Fast Ventricular Tachycardia 0 [facility] ICD-LEADIMPEDANCEATRI AL 817 ohm [facility] ICD-Percent Pacing (Atrial) 0 % [facility] ICD-Percent Pacing (Vent) 81 % [facility] ICD-Shocks Aborted (Vent) 0 [facility] [id number] 0 [facility] ICD-SHOCKSABORTED 0 [facility] ICD-SHOCKSDELIVEREDVE NTRICULAR 0 [facility] ICD-Ventricular Fibrillation 0 [facility] Implant Date 10/18/2017 [facility] Lead Impedance (LV) 914 ohm [facility] Lead Impedance (RV) 515 ohm [facility] Lead Impedance High Voltage 90 ohm [facility] Lead1 Mfg BSX [facility] Lead2 Mfg BSX [facility] Lead3 Mfg BSX [facility] Location LV [facility] Location RA [facility] Location RV [facility] Lower Rate (bpm) 60 {beats}/min [facility] LV PACING % 89 % [facility] Max Sensor Rate (bpm) 130 {beats}/min [facility] MDT_PROG_TACHY_ZONE_D ETECTIONS_STATUS ENABLED [facility] Model G247 VIGILANT X4 ANTENNA MACHINE OPERATOR-D Cl [facility] Model 4671 Acuity X4 Straight C [facility] Model 7841 Ingevity + MRI [facility] Model 0292 [employer] Relianc e 4-Site SG [facility] Pacing Mode DDD [facility] Serial Number [id number] [facility] Serial Number [id number] [facility] Serial Number [id number] [facility] Serial Number [id number] [facility] Test Charge Time 9.9 s [facility] Therapy Status (Vent) Enabled [facility] Thresh LV Capture Amplitude (volts) 0.9 V [facility] Thresh LV Capture Duration (ms) 0.5 ms [facility] Thresh RV Capture Amplitude (VOLTS) 0.7 V [facility] Thresh RV Capture Duration (MS) 0.4 ms [facility] Tracking Rate (bpm) 130 {beats}/min [facility] VF Zone Detection Interval 300 ms [facility] VF Zone Therapy Configuration 1 ATP(s) + 8 Shock(s) [facility] No Panel Informationon 09-25 BLANK _ [facility] ICD-ATRIALTACHYCARDIA 0 [facility] Implant Date 03/31/2023 [facility] ICD REMOTE CHECKon AV Delay Adaptive Paced Minimum (ms) 140 ms [facility] AV Delay Adaptive Sensed Minimum (ms) 100 ms [facility] Federico LV Pacing Amplitude (volts) 2.3 V [facility] Federico LV Pacing Pulse Width (ms) 0.5 ms [facility] federico LV Sensing Amplitude (mvolts) 1.0 mV [facility] Federico RA Pacing Amplitude (volts) 2.0 V [facility] Federico RA Pacing Polarity BI [facility] Federico RA Pacing Pulse Width (ms) 0.4 ms [facility] Federico RA Sensing Amplitude (mvolts) 0.25 mV [facility] Federico RA Sensing Polarity BI [facility] Federico RV Pacing Amplitude (volts) 2.0 V [facility] Federico RV Pacing Polarity BI [facility] Federico RV Pacing Pulse Width (ms) 0.4 ms [facility] Federico RV Sensing Amplitude (mvolts) 0.3 mV [facility] Federico RV Sensing Polarity BI [facility] Detection Configuration (Vent) 2 - Zone [facility] FastVT_Detection Interval 300 ms [facility] FastVT_Therapy Configuration 1 ATP(s) + 8 Shock(s) [facility] ICD FastVT DetectionStatus ENABLED [facility] ICD-AMS EPISODES 170 {beats}/min [facility] ICD-ATP Episodes (Vent) 4 [facility] ICD-ATRIALFIBRILLATIO N 77 [facility] ICD-ATRIALTACHYCARDIA 77 [facility] ICD-ATRIALTACHYCARDIA 28 [facility] ICD-ATRIALTACHYCARDIA 22 [facility] ICD-ATRIALTACHYCARDIA 4 [facility] ICD-Device Mfg BSX [facility] ICD-Fast Ventricular Tachycardia 22 [facility] ICD-Fast Ventricular Tachycardia 4 [facility] ICD-Fast Ventricular Tachycardia 0 [facility] ICD-LEADIMPEDANCEATRI AL 847 ohm [facility] ICD-Percent Pacing (Atrial) 0 % [facility] ICD-Percent Pacing (Vent) 81 % [facility] ICD-Shocks Aborted (Vent) 0 [facility] [id number] 0 [facility] ICD-SHOCKSABORTED 0 [facility] ICD-SHOCKSDELIVEREDVE NTRICULAR 0 [facility] ICD-Ventricular Fibrillation 0 [facility] Implant Date 10/18/2017 [facility] Lead Impedance (LV) 991 ohm [facility] Lead Impedance (RV) 548 ohm [facility] Lead Impedance High Voltage 96 ohm [facility] Lead1 Mfg BSX [facility] Lead2 Mfg BSX [facility] Lead3 Mfg BSX [facility] Location LV [facility] Location RA [facility] Location RV [facility] Lower Rate (bpm) 60 {beats}/min [facility] LV PACING % 89 % [facility] Max Sensor Rate (bpm) 130 {beats}/min [facility] MDT_PROG_TACHY_ZONE_D ETECTIONS_STATUS ENABLED [facility] Model G247 VIGILANT X4 ANTENNA MACHINE OPERATOR-D Cl [facility] Model 4671 Acuity X4 Straight C [facility] Model 7841 Ingevity + MRI [facility] Model 0292 [employer] Relianc e 4-Site SG [facility] Pacing Mode DDD [facility] Serial Number [id number] [facility] Serial Number [id number] [facility] Serial Number [id number] [facility] Serial Number [id number] [facility] Test Charge Time 9.9 s [facility] Therapy Status (Vent) Enabled [facility] Thresh LV Capture Amplitude (volts) 0.9 V [facility] Thresh LV Capture Duration (ms) 0.5 ms [facility] Thresh RV Capture Amplitude (VOLTS) 0.7 V [facility] Thresh RV Capture Duration (MS) 0.4 ms [facility] Tracking Rate (bpm) 130 {beats}/min [facility] VF Zone Detection Interval 300 ms [facility] VF Zone Therapy Configuration 1 ATP(s) + 8 Shock(s) [facility] No Panel Informationon 09-22 BLANK _ [facility] ICD-ATRIALTACHYCARDIA 0 [facility] Implant Date 03/31/2023 [facility] CNOVon 09-18-2023 CNOV Normal [facility] CNOV Normal [facility] ECHOon 09-18-2023 [facility] LVEF TRANSTHORACIC ECHOon LV Ejection Fraction 20 % Abnormal <52 % [facility] Bilirubin.direct [Mass/Vol]o n 09-15-2023 Bilirubin.conjugated [Mass/Vol] 0.5 mg/dL High 0.0 - 0.4 mg/dL [facility] Interpretation and review of laboratory results Abnormal [facility] CBC Auto Differentialon Basophils (Bld) [#/Vol] 0.08 10*3/uL [facility] Basophils/100 WBC (Bld) 1.0 % [facility] Eosinophils (Bld) [#/Vol] 0.22 10*3/uL [facility] Eosinophils/100 WBC (Bld) 2.7 % [facility] Erythrocyte distribution width (RBC) [Entitic vol] 20.6 % High 11.6 - 14.8 % [facility] Hematocrit (Bld) [Volume fraction] 44.5 % 41.0 - 53.0 % [facility] Hemoglobin (Bld) [Mass/Vol] 13.3 g/dL Low 13.5 - 17.5 g/dL [facility] Immature granulocytes (Bld) [#/Vol] 0.02 10*3/uL [facility] Immature granulocytes/100 WBC (Bld) 0.20 % [facility] Comment on above: The IG parameter is the percentage of metamyelocytes, myelocytes and promyelocytes. An immature granulocyte count (IG) of 1% or more suggests the possibility of infection, an IG count of 3% is very likely related to an infection. Interpretation and review of laboratory results Abnormal [facility] Lymphocytes (Bld) [#/Vol] 1.23 10*3/uL [facility] Lymphocytes/100 WBC (Bld) 14.9 % [facility] MCH (RBC) [Entitic mass] 24.3 pg Low 26.0 - 34.[address] [facility] MCHC (RBC) [Mass/Vol] 29.9 g/dL Low 31.0 - 37.0 g/dL [facility] MCV (RBC) [Entitic vol] 81.2 fL 80.0 - 100.[address] [facility] Monocytes (Bld) [#/Vol] 0.96 10*3/uL High [facility] Monocytes/100 WBC (Bld) 11.6 % [facility] Neutrophils (Bld) [#/Vol] 5.77 10*3/uL [facility] Neutrophils/100 WBC (Bld) 69.6 % [facility] Nucleated RBC (Bld) [#/Vol] 0.00 10*3/uL [facility] Nucleated RBC/100 WBC (Bld) [Ratio] 0.0 % [facility] Platelet mean volume (Bld) [Entitic vol] 9.5 fL 9.4 - 12.[address] [facility] Platelets (Bld) [#/Vol] 266 10*3/uL [facility] RBC (Bld) [#/Vol] 5.48 10*6/uL [facility] WBC (Bld) [#/Vol] 8.28 10*3/uL [facility] Comprehensive metabolic 2000 panelon 09-15-2023 Albumin [Mass/Vol] 3.0 g/dL Low 3.2 - 5.2 g/dL [facility] ALP [Catalytic activity/Vol] 138 U/L 40 - 150 U/L [facility] ALT [Catalytic activity/Vol] 28 U/L 14 - 65 U/L [facility] Anion gap [Moles/Vol] 11 mmol/L 10 - 2 0 mmol/L [facility] AST [Catalytic activity/Vol] 21 U/L 0-50 U/L [facility] Bilirubin [Mass/Vol] 2.2 mg/dL High 0.0 - 1 .3 mg/dL [facility] Calcium [Mass/Vol] 9.4 mg/dL 8.4 - 10. 2 mg/dL [facility] Chloride [Moles/Vol] 103 mmol/L 98 - 10 8 mmol/L [facility] Creatinine [Mass/Vol] 2.45 mg/dL High 0.80 - 1.30 mg/dL [facility] GFR/1.73 sq M.predicted CKD-EPI (S/P/Bld) [Vol rate/Area] 28 Low - PINF [facility] Comment on above: Estimated GFR was ca lculated using the 2020 CKD-EPI creatinine equation. Glucose [Mass/Vol] 122 mg/dL High 65 - 99 mg/dL [facility] HCO3 [Moles/Vol] 28 mmol/L 21 - 32 mmol/L [facility] Potassium [Moles/Vol] 3.9 mmol/L 3.5 - 5.1 mmol/L [facility] Protein [Mass/Vol] 6.9 g/dL 6.0 - 8.0 g/dL [facility] Sodium [Moles/Vol] 138 mmol/L 135 - 145 mmol/L [facility] Urea nitrogen [Mass/Vol] 53 mg/dL High 8 - 25 mg/dL [facility] Urea nitrogen/Creatinine [Mass ratio] 21.6 mg/mg High 10.0 - 20.0 [facility] has implemented the eGFR calculation approach that does not have a coefficient for race that conforms to the NKF-ASN Task Force Recommendations. [facility] ECG 12 Leadon 09-15-2023 Atrial Rate [address] [facility] P [place] [address] [facility] Q-T Interval [address] [facility] QRS Duration [address] [facility] QTC Calculation (Bezet) [address] [facility] R [place] -[address] [facility] T [place] [address] [facility] Ventricular Rate 114 BPM [facility] Ventricular-paced yt Biventricular pacemaker detected Abnormal ECG Confirmed by Allan Jasso MD ([id number]) on 09/15/2023 11:53:[address] [facility] Magnesium Levelon 09-15-2023 Magnesium [Mass/Vol] 2.6 mg/dL High 1.6 - 2 .4 mg/dL [facility] No Panel Informationon 09-15 Interpretation and review of laboratory results Abnormal [facility] Phosphate [Mass/Vol]on 09-15 Interpretation and review of laboratory results Normal [facility] Phosphoruson 09-15-2023 Phosphate [Mass/Vol] 3.4 mg/dL 2.3 - 3 .7 mg/dL [facility] APTT Heparin CoverageOrdered By: Rogerio Mae on 09-14-2023 aPTT Coag (Bld) [Time] [address] [facility] Interpretation and review of laboratory results Abnormal [facility] Therapeutic range fo r APTT's is 68 - 104 seconds [facility] APTT Heparin CoverageOrdered By: Stacy Nichols on 09-14-2023 aPTT Coag (Bld) [Time] [address] [facility] Interpretation and review of laboratory results Abnormal [facility] Therapeutic range fo r APTT's is 68 - 104 seconds [facility] Bilirubin.direct [Mass/Vol]o n 09-14-2023 Bilirubin.conjugated [Mass/Vol] 0.4 mg/dL 0.0 - 0.4 mg/dL [facility] Interpretation and review of laboratory results Normal [facility] CBC panel Auto (Bld)on 09-14 Erythrocyte distribution width (RBC) [Entitic vol] 20.7 % High 11.6 - 14.8 % [facility] Hematocrit (Bld) [Volume fraction] 44.5 % 41.0 - 53.0 % [facility] Hemoglobin (Bld) [Mass/Vol] 13.7 g/dL 13.5 - 17.5 g/dL [facility] Interpretation and review of laboratory results Abnormal [facility] MCH (RBC) [Entitic mass] 24.9 pg Low 26.0 - 34.[address] [facility] MCHC (RBC) [Mass/Vol] 30.8 g/dL Low 31.0 - 37.0 g/dL [facility] MCV (RBC) [Entitic vol] 80.8 fL 80.0 - 100.[address] [facility] Nucleated RBC (Bld) [#/Vol] 0.00 10*3/uL [facility] Nucleated RBC/100 WBC (Bld) [Ratio] 0.0 % [facility] Platelet mean volume (Bld) [Entitic vol] 9.1 fL Low 9.4 - 12.[address] [facility] Platelets (Bld) [#/Vol] 262 10*3/uL [facility] RBC (Bld) [#/Vol] 5.51 10*6/uL [facility] WBC (Bld) [#/Vol] 9.23 10*3/uL [facility] CTA Abdominal Aorta and Bila teral Runoff Vessels W contrast Vivian 09-14-2023 1. Aortic atherosclerosis no aneurysm or dissection 2. Mild proximal celiac stenosis 3. 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 4. Patent PAO with small partial dissection 2 cm from the origin 5. Right lower extremity atherosclerotic disease causing multifocal moderate to severe SFA and mild popliteal stenoses. 6. Three-vessel right lower extremity runoff with plaque causing multifocal anterior tibial stenoses and proximal posterior tibial stenosis. 7. Left lower extremity atherosclerotic disease causing multifocal mild SFA and popliteal stenoses 8. 2 vessel left lower extremity runoff via the peroneal and posterior tibial arteries with multifocal posterior tibial stenoses as well as high-grade stenosis to near occlusion of the anterior tibial artery and reconstitution at the ankle. 9. Mild diffuse bladder wall thickening correlate for chronic outlet obstruction. 10. Additional chronic findings as above. Workstation ID: [id number] iCopyright [facility] EXAMINATION: CT ANGIOGRAM ABDOMINAL AORTA WITH LOWER EXTREMITY PROCEDURE: 1. Enhanced CT scan of the abdomen. 2. Enhanced CT scan of the pelvis. 3. Enhanced CT scan of the lower extremities. 4. CTA abdominal aorta. 5. CTA runoff lower extremities. 6. 3-D reconstructions on a separate workstation. HISTORY: 68-year-old with claudication. [place] class V peripheral vascular disease in the right lower extremity with S aleksandra involving the lateral right foot. Ischemic ulceration the left heel. History of severe ischemic cardiomyopathy (ejection fraction 20%) and prior AFib cardioversion with reconversion into atrial fibrillation. COMPARISON: CT abdomen pelvis 08/12/2019 TECHNIQUE: Enhanced axial CT images of the abdomen, pelvis and lower extremities. No contrast reaction. 3D reformatted images performed on a separate workstation. Dose reduction technique used: Automated exposure control/Adjustment of the mA and/or kV according to patient size/Use of iterative reconstruction technique. FINDINGS: CTA: Abdominal Aorta: Scattered calcified and noncalcified plaque. No aneurysm or dissection. Celiac Artery: Patent. Mild proximal stenosis. The celiac gives rise to the splenic and left gastric arteries. SMA: Patent. No stenosis. Variant anatomy replaced common hepatic artery originating from the SMA. PAO: Patent. Partial dissection approximately 2 cm from the origin. Renal Arteries: One renal artery supplying the right kidney. One renal artery supplying the left kidney. No evidence of stenosis or dissection. Common Iliac Arteries: Trace plaque. No stenosis. External and Internal Iliac Arteries: Scattered plaque. No stenosis. Right Leg: Common Femoral Artery: Calcified plaque causing minimal stenosis. Profunda: Patent. SFA: Plaque throughout causing multifocal moderate and high-grade stenoses. Popliteal Artery: Plaque throughout causing multifocal mild stenoses. Runoff Lower Leg: Patent 3 vessel runoff. Extensive plaque throughout the anterior tibial artery causing multifocal stenoses. Proximal stenosis in the posterior tibial artery. Left Leg: Common Femoral Artery: Calcified and noncalcified plaque without significant stenosis Profunda: Patent. SFA: Scattered plaque causing mild multifocal stenoses. Popliteal Artery: Scattered plaque causing mild multifocal stenoses. Runoff Lower Leg: Patent 2 vessel left lower extremity runoff via the peroneal and posterior tibial arteries. High-grade stenosis to near occlusion of the anterior tibial artery with reconstitution at the ankle. Multifocal posterior tibial stenosis. CHEST: Lower Lungs: Scarring in the bilateral lung bases. Partially visualized electrodes at the left and right ventricles and right atrium. ABDOMEN: Liver: Normal size and homogenous parenchyma. Gallbladder: Status post cholecystectomy. No calcified gallstones. No bile duct dilation. Spleen: Scattered calcified granulomas. Adrenals: Normal Pancreas: Diffuse pancreatic atrophy. No peripancreatic stranding. IVC: Normal. Kidneys: No calculus, mass, or hydronephrosis. Retroperitoneum: No adenopathy. Stomach: No abnormality. PELVIS: Reproductive Organs: No pelvic mass. Bladder: Mild diffuse smooth wall thickening Colon: No focal wall thickening or paracolic fat stranding. Small Bowel: No dilation or wall thickening. Appendix: Normal. Mesentery: No adenopathy. Normal splanchnic veins. Peritoneum: No free fluid or free air. Body wall: No abnormality. Bones: No destructive lesion. 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 iCopyright [facility] Lexi Sy MD - 09/14/2023 EXAMINATION: CT ANGIOGRAM ABDOMINAL AORTA WITH LOWER EXTREMITY PROCEDURE: 1. Enhanced CT scan of the abdomen. 2. Enhanced CT scan of the pelvis. 3. Enhanced CT scan of the lower extremities. 4. CTA abdominal aorta. 5. CTA runoff lower extremities. 6. 3-D reconstructions on a separate workstation. HISTORY: 68-year-old with claudication. [place] class V peripheral vascular disease in the right lower extremity with S aleksandra involving the lateral right foot. Ischemic ulceration the left heel. History of severe ischemic cardiomyopathy (ejection fraction 20%) and prior AFib cardioversion with reconversion into atrial fibrillation. COMPARISON: CT abdomen pelvis 08/12/2019 TECHNIQUE: Enhanced axial CT images of the abdomen, pelvis and lower extremities. No contrast reaction. 3D reformatted images performed on a separate workstation. Dose reduction technique used: Automated exposure control/Adjustment of the mA and/or kV according to patient size/Use of iterative reconstruction technique. FINDINGS: CTA: Abdominal Aorta: Scattered calcified and noncalcified plaque. No aneurysm or dissection. Celiac Artery: Patent. Mild proximal stenosis. The celiac gives rise to the splenic and left gastric arteries. SMA: Patent. No stenosis. Variant anatomy replaced common hepatic artery originating from the SMA. PAO: Patent. Partial dissection approximately 2 cm from the origin. Renal Arteries: One renal artery supplying the right kidney. One renal artery supplying the left kidney. No evidence of stenosis or dissection. Common Iliac Arteries: Trace plaque. No stenosis. External and Internal Iliac Arteries: Scattered plaque. No stenosis. Right Leg: Common Femoral Artery: Calcified plaque causing minimal stenosis. Profunda: Patent. SFA: Plaque throughout causing multifocal moderate and high-grade stenoses. Popliteal Artery: Plaque throughout causing multifocal mild stenoses. Runoff Lower Leg: Patent 3 vessel runoff. Extensive plaque throughout the anterior tibial artery causing multifocal stenoses. Proximal stenosis in the posterior tibial artery. Left Leg: Common Femoral Artery: Calcified and noncalcified plaque without significant stenosis Profunda: Patent. SFA: Scattered plaque causing mild multifocal stenoses. Popliteal Artery: Scattered plaque causing mild multifocal stenoses. Runoff Lower Leg: Patent 2 vessel left lower extremity runoff via the peroneal and posterior tibial arteries. High-grade stenosis to near occlusion of the anterior tibial artery with reconstitution at the ankle. Multifocal posterior tibial stenosis. CHEST: Lower Lungs: Scarring in the bilateral lung bases. Partially visualized electrodes at the left and right ventricles and right atrium. ABDOMEN: Liver: Normal size and homogenous parenchyma. Gallbladder: Status post cholecystectomy. No calcified gallstones. No bile duct dilation. Spleen: Scattered calcified granulomas. Adrenals: Normal Pancreas: Diffuse pancreatic atrophy. No peripancreatic stranding. IVC: Normal. Kidneys: No calculus, mass, or hydronephrosis. Retroperitoneum: No adenopathy. Stomach: No abnormality. PELVIS: Reproductive Organs: No pelvic mass. Bladder: Mild diffuse smooth wall thickening Colon: No focal wall thickening or paracolic fat stranding. Small Bowel: No dilation or wall thickening. Appendix: Normal. Mesentery: No adenopathy. Normal splanchnic veins. Peritoneum: No free fluid or free air. Body wall: No abnormality. Bones: No destructive lesion. 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 IMPRESSION: 1. Aortic atherosclerosis no aneurysm or dissection 2. Mild proximal celiac stenosis 3. 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 4. Patent PAO with small partial dissection 2 cm from the origin 5. Right lower extremity atherosclerotic disease causing multifocal moderate to severe SFA and mild popliteal stenoses. 6. Three-vessel right lower extremity runoff with plaque causing multifocal anterior tibial stenoses and proximal posterior tibial stenosis. 7. Left lower extremity atherosclerotic disease causing multifocal mild SFA and popliteal stenoses 8. 2 vessel left lower extremity runoff via the peroneal and posterior tibial arteries with multifocal posterior tibial stenoses as well as high-grade stenosis to near occlusion of the anterior tibial artery and reconstitution at the ankle. 9. Mild diffuse bladder wall thickening correlate for chronic outlet obstruction. 10. Additional chronic findings as above. Workstation ID: [id number] [facility] Radiology Study observation (narrative) [facility] CTA Abdominal Aorta and Bila teral Runoff Vessels W contrast IVOrdered By: Lexi Sy on 09-14-2023 [facility] Work Phone: Comprehensive metabolic 2000 panelon 09-14-2023 Albumin [Mass/Vol] 3.0 g/dL Low 3.2 - 5.2 g/dL [facility] ALP [Catalytic activity/Vol] 154 U/L High 40 - 150 U/L [facility] ALT [Catalytic activity/Vol] 32 U/L 14 - 65 U/L [facility] Anion gap [Moles/Vol] 15 mmol/L 10 - 2 0 mmol/L [facility] AST [Catalytic activity/Vol] 25 U/L 0-50 U/L [facility] Bilirubin [Mass/Vol] 2.4 mg/dL High 0.0 - 1 .3 mg/dL [facility] Calcium [Mass/Vol] 9.2 mg/dL 8.4 - 10. 2 mg/dL [facility] Chloride [Moles/Vol] 100 mmol/L 98 - 10 8 mmol/L [facility] Creatinine [Mass/Vol] 2.42 mg/dL High 0.80 - 1.30 mg/dL [facility] GFR/1.73 sq M.predicted CKD-EPI (S/P/Bld) [Vol rate/Area] 29 Low - PINF [facility] Comment on above: Estimated GFR was ca lculated using the 2020 CKD-EPI creatinine equation. Glucose [Mass/Vol] 175 mg/dL High 65 - 99 mg/dL [facility] HCO3 [Moles/Vol] 24 mmol/L 21 - 32 mmol/L [facility] Interpretation and review of laboratory results Abnormal [facility] Potassium [Moles/Vol] 4.2 mmol/L 3.5 - 5.1 mmol/L [facility] Protein [Mass/Vol] 7.0 g/dL 6.0 - 8.0 g/dL [facility] Sodium [Moles/Vol] 135 mmol/L 135 - 145 mmol/L [facility] Urea nitrogen [Mass/Vol] 53 mg/dL High 8 - 25 mg/dL [facility] Urea nitrogen/Creatinine [Mass ratio] 21.9 mg/mg High 10.0 - 20.0 [facility] has implemented the eGFR calculation approach that does not have a coefficient for race that conforms to the NKF-ASN Task Force Recommendations. [facility] ECHOCARDIOGRAM COMPLETE W CO NTRASTon 09-14-2023 ECHOCARDIOGRAM COMPLETE W CONTRAST Patient Info Name: GREGG FOSTER Age: 68 years : 1955 Gender: Male Ht: 180 cm Wt: 105 kg BSA: 2.33 m2 HR: 113 bpm BP: 119 / 76 mmHg Heart Rhythm: Atrial Fibrillation Technical Quality: Technically difficult Exam Date: 09/14/2023 2:25 PM Patient Status: Inpatient Delivery Helper: Shock, Elisha, RDCS, RVT Exam Type: ECHOCARDIOGRAM COMPLETE W CONTRAST Study Info Indications I25.5 - Ischemic cardiomyopathy Referring Physician: EMILIANO Gold; [id number] BMI: 32.36 kg/m2 Summary 1. Enlarged LV chamber size. Normal wall thickness. Systolic function severely reduced with global hypokinesis. Ejection fraction by biplane method of discs of 13%. 2. Right ventricular chamber dimension is normal. Right ventricular systolic function is severely reduced. 3. No hemodynamically significant valvular disease. 4. There is pulmonary hypertension, estimated right ventricle systolic pressure is 43 mmHg. 5. Dilated inferior vena cava with <50% collapse upon inspiration consistent with elevated right atrial pressure. History/Risk Factors Hypertension: Yes Renal Disease: Yes Coronary Artery Disease (CAD) Yes Congestive Heart Failure (CHF): Hx CHF Cardiomyopathy/LV Systolic Dysfunction: Yes Diabetes Mellitus: Yes Tobacco Use: Never Family History: Diabetes Mellitus, Coronary Artery Disease Prior Interventions PCI: Yes ICD: Yes Procedure(s): Complete two-dimensional, color flow and Doppler transthoracic echocardiogram is performed with contrast. Definity explained to patient. Patient verbalizes understanding and agrees to proceed. Definity 1.3ml/8.7ml normal sterile saline 3 ml total given IV over 30-60 seconds. Left Ventricle Enlarged LV chamber size. Normal wall thickness. Systolic function severely reduced with global hypokinesis. Ejection fraction by biplane method of discs of 13%. The left ventricular diastolic function is indeterminate. Right Ventricle Right ventricular chamber dimension is normal. Right ventricular systolic function is severely reduced. Left Atria Left atrial chamber is not well visualized. Right Atria Right atrial chamber dimension is enlarged. Aortic Valve The aortic valve is trileaflet. There is mild aortic valve sclerosis. There is no aortic valve stenosis. There is no aortic valve regurgitation. Pulmonic Valve The pulmonic valve is not well visualized. There is no pulmonic valve stenosis. There is mild pulmonic regurgitation. Mitral Valve The mitral valve has normal leaflets. There is no mitral valve stenosis. There is trace mitral valve regurgitation. Tricuspid Valve The tricuspid valve leaflets are normal. There is no significant tricuspid valve stenosis. There is mild tricuspid valve regurgitation. There is pulmonary hypertension, estimated right ventricle systolic pressure is 43 mmHg. Pericardium/Pleural There is no pericardial effusion. Inferior Vena Cava Dilated inferior vena cava with <50% collapse upon inspiration consistent with elevated right atrial pressure. Aorta The aortic measurements are indexed to age and body surface area. The aortic root is normal measuring 3.8 cm with an index of 1.6 cm/m2. The proximal ascending aorta is normal measuring 3.4 cm with an index of 1.5 cm/m2. Wall Motion Scoring Wall Motion Scoring Index: 2.00 Left Ventricular Outflow Tract Name Value Normal LVOT 2D LVOT Diameter 2.6 cm LVOT Doppler LVOT Peak Velocity 0.4 m/s LVOT Peak Gradient 1 mmHg LVOT Mean Gradient 0 mmHg LVOT VTI 6 cm LVOT VTI/AV VTI Ratio 0.8 LVOT Stroke Volume 32 ml LVOT Stroke Index 14.13 ml/m2 Pulmonic Valve Name Value Normal PV 2D RVOT Diameter (2D) 2.7 cm 1.7-2.7 RVOT Doppler RVOT Peak Velocity 28 cm/s RVOT Peak Gradient 0 mmHg RVOT Mean Gradient 0 mmHg RVOT VTI 4 cm PV Doppler PV Peak Velocity 0.45 m/s PV Peak Gradient 1 mmHg PV Mean Gradient 0 mmHg PV VTI 8 cm PV Area (Cont Eq VTI) 3.1 cm2 PV Area Index (Cont Eq VTI) 1.35 cm2/m2 PV Area (Cont Eq Jayme) 3.5 cm2 PV Area Index (Cont Eq Jayme) 1.51 cm2/m2 PV Regurgitation Doppler DC Peak Gradient 10 mmHg DC Peak End Diastolic Ve (more content not included)... Normal [facility] Echocardiogram complete w co ntrastOrdered By: Sadiq Elizondo on 09-14-2023 Aortic valve area 4.39331 cm [facility] Work Phone: AV mean gradient 0.889149 mmHg [facility] Work Phone: [phone] AV peak gradient 1.46164 mmHg [facility] Work Phone: [phone] EF 13.3584 % [facility] Work Phone: [phone] [facility] Work Phone: [phone] Echocardiogram complete w co ntraston 09-14-2023 Patient Info Name: GREGG FOSTER Age: 68 years : 1955 Gender: Male Ht: 180 cm Wt: 105 kg BSA: 2.33 m2 HR: 113 bpm BP: 119 / 76 mmHg Heart Rhythm: Atrial Fibrillation Technical Quality: Technically difficult Exam Date: 09/14/2023 2:25 PM Patient Status: Inpatient Delivery Helper: Shock, Elisha, RDCS, RVT Exam Type: ECHOCARDIOGRAM COMPLETE W CONTRAST Study Info Indications I25.5 - Ischemic cardiomyopathy Referring Physician: EMILIANO Gold; [id number] BMI: 32.36 kg/m2 Summary 1. Enlarged LV chamber size. Normal wall thickness. Systolic function severely reduced with global hypokinesis. Ejection fraction by biplane method of discs of 13%. 2. Right ventricular chamber dimension is normal. Right ventricular systolic function is severely reduced. 3. No hemodynamically significant valvular disease. 4. There is pulmonary hypertension, estimated right ventricle systolic pressure is 43 mmHg. 5. Dilated inferior vena cava with <50% collapse upon inspiration consistent with elevated right atrial pressure. History/Risk Factors Hypertension: Yes Renal Disease: Yes Coronary Artery Disease (CAD) Yes Congestive Heart Failure (CHF): Hx CHF Cardiomyopathy/LV Systolic Dysfunction: Yes Diabetes Mellitus: Yes Tobacco Use: Never Family History: Diabetes Mellitus, Coronary Artery Disease Prior Interventions PCI: Yes ICD: Yes Procedure(s): Complete two-dimensional, color flow and Doppler transthoracic echocardiogram is performed with contrast. Definity explained to patient. Patient verbalizes understanding and agrees to proceed. Definity 1.3ml/8.7ml normal sterile saline 3 ml total given IV over 30-60 seconds. Left Ventricle Enlarged LV chamber size. Normal wall thickness. Systolic function severely reduced with global hypokinesis. Ejection fraction by biplane method of discs of 13%. The left ventricular diastolic function is indeterminate. Right Ventricle Right ventricular chamber dimension is normal. Right ventricular systolic function is severely reduced. Left Atria Left atrial chamber is not well visualized. Right Atria Right atrial chamber dimension is enlarged. Aortic Valve The aortic valve is trileaflet. There is mild aortic valve sclerosis. There is no aortic valve stenosis. There is no aortic valve regurgitation. Pulmonic Valve The pulmonic valve is not well visualized. There is no pulmonic valve stenosis. There is mild pulmonic regurgitation. Mitral Valve The mitral valve has normal leaflets. There is no mitral valve stenosis. There is trace mitral valve regurgitation. Tricuspid Valve The tricuspid valve leaflets are normal. There is no significant tricuspid valve stenosis. There is mild tricuspid valve regurgitation. There is pulmonary hypertension, estimated right ventricle systolic pressure is 43 mmHg. Pericardium/Pleural There is no pericardial effusion. Inferior Vena Cava Dilated inferior vena cava with <50% collapse upon inspiration consistent with elevated right atrial pressure. Aorta The aortic measurements are indexed to age and body surface area. The aortic root is normal measuring 3.8 cm with an index of 1.6 cm/m2. The proximal ascending aorta is normal measuring 3.4 cm with an index of 1.5 cm/m2. Wall Motion Scoring Wall Motion Scoring Index: 2.00 Left Ventricular Outflow Tract Name Value Normal LVOT 2D LVOT Diameter 2.6 cm LVOT Doppler LVOT Peak Velocity 0.4 m/s LVOT Peak Gradient 1 mmHg LVOT Mean Gradient 0 mmHg LVOT VTI 6 cm LVOT VTI/AV VTI Ratio 0.8 LVOT Stroke Volume 32 ml LVOT Stroke Index 14.13 ml/m2 Pulmonic Valve Name Value Normal PV 2D RVOT Diameter (2D) 2.7 cm 1.7-2.7 RVOT Doppler RVOT Peak Velocity (more content not included)... FUJI Sadiq Spear MD - 09/14/2023 Patient Info Name: GREGG FOSTER Age: 68 years : 1955 Gender: Male Ht: 180 cm Wt: 105 kg BSA: 2.33 m2 HR: 113 bpm BP: 119 / 76 mmHg Heart Rhythm: Atrial Fibrillation Technical Quality: Technically difficult Exam Date: 09/14/2023 2:25 PM Patient Status: Inpatient Delivery Helper: Linda, Elisha, RDCS, RVT Exam Type: ECHOCARDIOGRAM COMPLETE W CONTRAST Study Info Indications I25.5 - Ischemic cardiomyopathy Referring Physician: EMILIANO Gold; [id number] BMI: 32.36 kg/m2 Summary 1. Enlarged LV chamber size. Normal wall thickness. Systolic function severely reduced with global hypokinesis. Ejection fraction by biplane method of discs of 13%. 2. Right ventricular chamber dimension is normal. Right ventricular systolic function is severely reduced. 3. No hemodynamically significant valvular disease. 4. There is pulmonary hypertension, estimated right ventricle systolic pressure is 43 mmHg. 5. Dilated inferior vena cava with <50% collapse upon inspiration consistent with elevated right atrial pressure. History/Risk Factors Hypertension: Yes Renal Disease: Yes Coronary Artery Disease (CAD) Yes Congestive Heart Failure (CHF): Hx CHF Cardiomyopathy/LV Systolic Dysfunction: Yes Diabetes Mellitus: Yes Tobacco Use: Never Family History: Diabetes Mellitus, Coronary Artery Disease Prior Interventions PCI: Yes ICD: Yes Procedure(s): Complete two-dimensional, color flow and Doppler transthoracic echocardiogram is performed with contrast. Definity explained to patient. Patient verbalizes understanding and agrees to proceed. Definity 1.3ml/8.7ml normal sterile saline 3 ml total given IV over 30-60 seconds. Left Ventricle Enlarged LV chamber size. Normal wall thickness. Systolic function severely reduced with global hypokinesis. Ejection fraction by biplane method of discs of 13%. The left ventricular diastolic function is indeterminate. Right Ventricle Right ventricular chamber dimension is normal. Right ventricular systolic function is severely reduced. Left Atria Left atrial chamber is not well visualized. Right Atria Right atrial chamber dimension is enlarged. Aortic Valve The aortic valve is trileaflet. There is mild aortic valve sclerosis. There is no aortic valve stenosis. There is no aortic valve regurgitation. Pulmonic Valve The pulmonic valve is not well visualized. There is no pulmonic valve stenosis. There is mild pulmonic regurgitation. Mitral Valve The mitral valve has normal leaflets. There is no mitral valve stenosis. There is trace mitral valve regurgitation. Tricuspid Valve The tricuspid valve leaflets are normal. There is no significant tricuspid valve stenosis. There is mild tricuspid valve regurgitation. There is pulmonary hypertension, estimated right ventricle systolic pressure is 43 mmHg. Pericardium/Pleural There is no pericardial effusion. Inferior Vena Cava Dilated inferior vena cava with <50% collapse upon inspiration consistent with elevated right atrial pressure. Aorta The aortic measurements are indexed to age and body surface area. The aortic root is normal measuring 3.8 cm with an index of 1.6 cm/m2. The proximal ascending aorta is normal measuring 3.4 cm with an index of 1.5 cm/m2. Wall Motion Scoring Wall Motion Scoring Index: 2.00 Left Ventricular Outflow Tract Name Value Normal LVOT 2D LVOT Diameter 2.6 cm LVOT Doppler LVOT Peak Velocity 0.4 m/s LVOT Peak Gradient 1 mmHg LVOT Mean Gradient 0 mmHg LVOT VTI 6 cm LVOT VTI/AV VTI Ratio 0.8 LVOT Stroke Volume 32 ml LVOT Stroke Index 14.13 ml/m2 Pulmonic Valve Name Value Normal PV 2D RVOT Diameter (2D) 2.7 cm 1.7-2.7 RVOT Doppler RVOT Peak Velocity 28 cm/s RVOT Peak Gradient 0 mmHg RVOT Mean Gradient 0 mmHg RVOT VTI 4 cm PV Doppler PV Peak Velocity 0.45 m/s PV Peak Gradient 1 mmHg PV Mean Gradient 0 mmHg PV VTI 8 cm PV Area (Cont Eq VTI) 3.1 cm2 PV Area Index (Cont Eq VTI) 1.35 cm2/m2 PV Area (Cont Eq Jayme) 3.5 cm2 PV Area Index (Cont Eq Jayme) 1.51 cm2/m2 PV Regurgitation Doppler ------- (more content not included)... [facility] Magnesium Levelon 09-14-2023 Magnesium [Mass/Vol] 2.6 mg/dL High 1.6 - 2 .4 mg/dL [facility] Magnesium [Mass/Vol]on 09-14 Interpretation and review of laboratory results Abnormal [facility] Phosphate [Mass/Vol]on 09-14 Interpretation and review of laboratory results Normal [facility] Phosphoruson 09-14-2023 Phosphate [Mass/Vol] 3.1 mg/dL 2.3 - 3 .7 mg/dL [facility] Reflex Lactic Acid, Plasmaon 09-14-2023 Interpretation and review of laboratory results Normal [facility] Lactate [Moles/Vol] 1.8 mmol/L 0.6 - 2. 0 mmol/L [facility] Interpretation and review of laboratory results Abnormal [facility] Lactate [Moles/Vol] 2.1 mmol/L High 0.6 - 2. 0 mmol/L [facility] Interpretation and review of laboratory results Abnormal [facility] Lactate [Moles/Vol] 2.2 mmol/L High 0.6 - 2. 0 mmol/L [facility] US ANKLE/BRACHIAL INDICES EX TREMITY LIMITEDon 09-14-2023 US ANKLE/BRACHIAL INDICES EXTREMITY LIMITED Patient Info Name: GREGG FOSTER Age: 68 years : 1955 Gender: Male Exam Date: 09/14/2023 7:22 AM Patient Status: Inpatient Colon Therapist: [facility] Referring Physician: SHAHAB BUCKLEY MD; Indications - Gangrene with severe peripheral vascular disease I73.9 - Peripheral vascular disease, unspecified Procedure Description 79877 Limited bilateral noninvasive physiologic studies of upper or lower extremity arteries with bidirectional Doppler/PVR waveform analysis at 1-2 levels. Conclusions * Right. * Right ankle brachial index is not accurate due to vessel wall calcification. Based on waveform criteria, there is moderate/severe peripheral artery disease. FLORENCIO 2.44. * Moderate/severe small vessel disease at the transmetatarsal level in the right foot. * Right toe brachial index is abnormal. TBI .33. * Left. * Mild small vessel disease at the transmetatarsal level in the left foot. * Left toe brachial index is abnormal . TBI .63. * Left ankle brachial index is not accurate due to vessel wall calcification. Based on waveform criteria, there is moderate peripheral artery disease. Recommendations * This study has unknown bilateral ABIs due to non-compressibility as seen with arterial calcification. His right ankle Doppler and PVR waveforms show severe blunting and dampening with weak biphasic/monophasic patterns. His left ankle Doppler and PVR waveforms show moderate arterial disease with biphasic patterns. If clinically warranted, advanced vascular imaging would help delineate the severity and extent of his arterial disease. Clinical correlation advised. . Doppler Rt Posterior Tibial: Monophasic Rt Dorsalis Pedis: Monophasic Lt Posterior Tibial: Triphasic Lt Dorsalis Pedis: Biphasic PVR Findings . The PVR of the left ankle appears abnormal based on motion however due to pressure and doppler waveform normal is suggested. PVR Rt Ankle: Abnormal Rt Digit: Abnormal Lt Digit: Abnormal Segmental BP Findings No blood pressure obtained in right arm due to IV location. Rt Posterior Tibial: 254 Rt Dorsalis Pedis: 150 Rt Digit: 34 2.44 1.44 0.33 Lt Brachial: 104 Lt Posterior Tibial: 254 Lt Dorsalis Pedis: 254 Lt Digit: 65 2.44 2.44 0.63 Risk Factors Patient has a history of CKD, hypertension, hyperlipidemia, diabetes and PAD. . Report Signatures Finalized by EVA Eaton DO on 09/14/2023 09:15 AM Normal [facility] US DUPLEX ARTERIAL LEG RIGHT on 09-14-2023 US DUPLEX ARTERIAL LEG RIGHT Patient Info Name: GREGG FOSTER Age: 68 years : 1955 Gender: Male Exam Date: 09/14/2023 7:33 AM Patient Status: Inpatient Colon Therapist: Maria De Jesus Majano, DELMY, RVS Referring Physician: EMILIANO Gold; Indications - Severe peripheral vascular disease with gangrene I73.9 - Peripheral vascular disease, unspecified Procedure Description [id number] Duplex scan of lower extremity arteries or arterial bypass grafts using B-mode, color and spectral Doppler; unilateral or limited study. Conclusions * Right. * Greater than 70% stenosis in the right mid superficial femoral artery. * Segmental occlusions noted in scalp treatment specialist tibial, peroneal and anterior tibial arteries. * Occlusion noted in the right distal anterior tibial artery. * Abnormal, monophasic flow is noted in the popliteal, posterior tibial, peroneal and anterior tibial arteries. Right Measurements Name Value Right PSV Right Distal EIA PSV 65 cm/s Right Mid LEAD MAN OVER ALL DIES IN PATTERN SHOP PSV 57 cm/s Right Prox Profunda PSV 72 cm/s Right Prox SFA PSV 29 cm/s Right Mid SFA PSV 445 cm/s Right Distal SFA PSV 31 cm/s Right Prox Pop A PSV 22 cm/s Right Distal Pop A PSV 22 cm/s Right Prox JOE PSV 40 cm/s Right Mid JOE PSV 38 cm/s Right Distal JOE PSV 0 cm/s Right Prox Sandeep A PSV 25 cm/s Right Mid Sandeep A PSV 27 cm/s Right Distal Sandeep A PSV 29 cm/s Right Prox PEOPLESOFT ANALYST PSV 36 cm/s Right Mid PEOPLESOFT ANALYST PSV 43 cm/s Right Distal PEOPLESOFT ANALYST PSV 37 cm/s R FLORENCIO 2.44 Right Measurements Name Value Right EDV Right Distal EIA EDV 15 cm/s Right Mid LEAD MAN OVER ALL DIES IN PATTERN SHOP EDV 11 cm/s Right Prox Profunda EDV 5 cm/s Right Prox SFA EDV 6 cm/s Right Mid SFA EDV 102 cm/s Right Distal SFA EDV 9 cm/s Right Prox Pop A EDV 6 cm/s Right Distal Pop A EDV 8 cm/s Right Prox JOE EDV 7 cm/s Right Mid JOE EDV 5 cm/s Right Distal JOE EDV 0 cm/s Right Prox Sandeep A EDV 7 cm/s Right Mid Sandeep A EDV 10 cm/s Right Distal Sandeep A EDV 10 cm/s Right Prox PEOPLESOFT ANALYST EDV 12 cm/s Right Mid PEOPLESOFT ANALYST EDV 18 cm/s Right Distal PEOPLESOFT ANALYST EDV 13 cm/s Right Findings Calcific plaque noted in the right external iliac, common femoral, profunda femoral, superficial femoral, popliteal, posterior tibial, peroneal and anterior tibial arteries. Risk Factors Patient has a history of CKD, hypertension, hyperlipidemia, diabetes and PAD. . Report Signatures Finalized by EVA Eaton DO on 09/14/2023 09:12 AM Normal [facility] US Doppler ankle/brachial in dexon 09-14-2023 Patient Info Name: GREGG FOSTER Age: 68 years : 1955 Gender: Male Exam Date: 09/14/2023 7:22 AM Patient Status: Inpatient Colon Therapist: Maria De Jesus Majano Referring Physician: SHAHAB BUCKLEY MD; Indications - Gangrene with severe peripheral vascular disease I73.9 - Peripheral vascular disease, unspecified Procedure Description 34689 Limited bilateral noninvasive physiologic studies of upper or lower extremity arteries with bidirectional Doppler/PVR waveform analysis at 1-2 levels. Conclusions * Right. * Right ankle brachial index is not accurate due to vessel wall calcification. Based on waveform criteria, there is moderate/severe peripheral artery disease. FLORENCIO 2.44. * Moderate/severe small vessel disease at the transmetatarsal level in the right foot. * Right toe brachial index is abnormal. TBI .33. * Left. * Mild small vessel disease at the transmetatarsal level in the left foot. * Left toe brachial index is abnormal . TBI .63. * Left ankle brachial index is not accurate due to vessel wall calcification. Based on waveform criteria, there is moderate peripheral artery disease. Recommendations * This study has unknown bilateral ABIs due to non-compressibility as seen with arterial calcification. His right ankle Doppler and PVR waveforms show severe blunting and dampening with weak biphasic/monophasic patterns. His left ankle Doppler and PVR waveforms show moderate arterial disease with biphasic patterns. If clinically warranted, advanced vascular imaging would help delineate the severity and extent of his arterial disease. Clinical correlation advised. . Doppler Rt Posterior Tibial: Monophasic Rt Dorsalis Pedis: Monophasic Lt Posterior Tibial: Triphasic Lt Dorsalis Pedis: Biphasic PVR Findings . The PVR of the left ankle appears abnormal based on motion however due to pressure and doppler waveform normal is suggested. PVR Rt Ankle: Abnormal Rt Digit: Abnormal Lt Digit: Abnormal Segmental BP Findings No blood pressure obtained in right arm due to IV location. Rt Posterior Tibial: 254 Rt Dorsalis Pedis: 150 Rt Digit: 34 2.44 1.44 0.33 Lt Brachial: 104 Lt Posterior Tibial: 254 Lt Dorsalis Pedis: 254 Lt Digit: 65 2.44 2.44 0.63 Risk Factors Patient has a history of CKD, hypertension, hyperlipidemia, diabetes and PAD. . Report Signatures Finalized by EVA Eaton DO on 09/14/2023 09:15 AM [facility] Alan Cristobal III, - 09/14/2023 Patient Info Name: GREGG FOSTER Age: 68 years : 1955 Gender: Male Exam Date: 09/14/2023 7:22 AM Patient Status: Inpatient Colon Therapist: Maria De Jesus Majano Referring Physician: SHAHAB BUCKLEY MD; Indications - Gangrene with severe peripheral vascular disease I73.9 - Peripheral vascular disease, unspecified Procedure Description 00551 Limited bilateral noninvasive physiologic studies of upper or lower extremity arteries with bidirectional Doppler/PVR waveform analysis at 1-2 levels. Conclusions * Right. * Right ankle brachial index is not accurate due to vessel wall calcification. Based on waveform criteria, there is moderate/severe peripheral artery disease. FLORENCIO 2.44. * Moderate/severe small vessel disease at the transmetatarsal level in the right foot. * Right toe brachial index is abnormal. TBI .33. * Left. * Mild small vessel disease at the transmetatarsal level in the left foot. * Left toe brachial index is abnormal . TBI .63. * Left ankle brachial index is not accurate due to vessel wall calcification. Based on waveform criteria, there is moderate peripheral artery disease. Recommendations * This study has unknown bilateral ABIs due to non-compressibility as seen with arterial calcification. His right ankle Doppler and PVR waveforms show severe blunting and dampening with weak biphasic/monophasic patterns. His left ankle Doppler and PVR waveforms show moderate arterial disease with biphasic patterns. If clinically warranted, advanced vascular imaging would help delineate the severity and extent of his arterial disease. Clinical correlation advised. . Doppler Rt Posterior Tibial: Monophasic Rt Dorsalis Pedis: Monophasic Lt Posterior Tibial: Triphasic Lt Dorsalis Pedis: Biphasic PVR Findings . The PVR of the left ankle appears abnormal based on motion however due to pressure and doppler waveform normal is suggested. PVR Rt Ankle: Abnormal Rt Digit: Abnormal Lt Digit: Abnormal Segmental BP Findings No blood pressure obtained in right arm due to IV location. Rt Posterior Tibial: 254 Rt Dorsalis Pedis: 150 Rt Digit: 34 2.44 1.44 0.33 Lt Brachial: 104 Lt Posterior Tibial: 254 Lt Dorsalis Pedis: 254 Lt Digit: 65 2.44 2.44 0.63 Risk Factors Patient has a history of CKD, hypertension, hyperlipidemia, diabetes and PAD. . Report Signatures Finalized by EVA Eaton DO on 09/14/2023 09:[address] [facility] Radiology Study observation (narrative) [facility] US Doppler ankle/brachial in dexOrdered By: Alan Cristobal on 09-14-2023 [facility] Work Phone: Ultrasound duplex arterial l eg righton 09-14-2023 Patient Info Name: GREGG FOSTER Age: 68 years : 1955 Gender: Male Exam Date: 09/14/2023 7:33 AM Patient Status: Inpatient Colon Therapist: Maria De Jesus Majano, DELMY, RVS Referring Physician: EMILIANO Gold; Indications - Severe peripheral vascular disease with gangrene I73.9 - Peripheral vascular disease, unspecified Procedure Description 16483 Duplex scan of lower extremity arteries or arterial bypass grafts using B-mode, color and spectral Doppler; unilateral or limited study. Conclusions * Right. * Greater than 70% stenosis in the right mid superficial femoral artery. * Segmental occlusions noted in scalp treatment specialist tibial, peroneal and anterior tibial arteries. * Occlusion noted in the right distal anterior tibial artery. * Abnormal, monophasic flow is noted in the popliteal, posterior tibial, peroneal and anterior tibial arteries. Right Measurements Name Value Right PSV Right Distal EIA PSV 65 cm/s Right Mid LEAD MAN OVER ALL DIES IN PATTERN SHOP PSV 57 cm/s Right Prox Profunda PSV 72 cm/s Right Prox SFA PSV 29 cm/s Right Mid SFA PSV 445 cm/s Right Distal SFA PSV 31 cm/s Right Prox Pop A PSV 22 cm/s Right Distal Pop A PSV 22 cm/s Right Prox JOE PSV 40 cm/s Right Mid JOE PSV 38 cm/s Right Distal JOE PSV 0 cm/s Right Prox Sandeep A PSV 25 cm/s Right Mid Sandeep A PSV 27 cm/s Right Distal Sandeep A PSV 29 cm/s Right Prox PEOPLESOFT ANALYST PSV 36 cm/s Right Mid PEOPLESOFT ANALYST PSV 43 cm/s Right Distal PEOPLESOFT ANALYST PSV 37 cm/s R FLORENCIO 2.44 Right Measurements Name Value Right EDV Right Distal EIA EDV 15 cm/s Right Mid LEAD MAN OVER ALL DIES IN PATTERN SHOP EDV 11 cm/s Right Prox Profunda EDV 5 cm/s Right Prox SFA EDV 6 cm/s Right Mid SFA EDV 102 cm/s Right Distal SFA EDV 9 cm/s Right Prox Pop A EDV 6 cm/s Right Distal Pop A EDV 8 cm/s Right Prox JOE EDV 7 cm/s Right Mid JOE EDV 5 cm/s Right Distal JOE EDV 0 cm/s Right Prox Sandeep A EDV 7 cm/s Right Mid Sandeep A EDV 10 cm/s Right Distal Sandeep A EDV 10 cm/s Right Prox PEOPLESOFT ANALYST EDV 12 cm/s Right Mid PEOPLESOFT ANALYST EDV 18 cm/s Right Distal PEOPLESOFT ANALYST EDV 13 cm/s Right Findings Calcific plaque noted in the right external iliac, common femoral, profunda femoral, superficial femoral, popliteal, posterior tibial, peroneal and anterior tibial arteries. Risk Factors Patient has a history of CKD, hypertension, hyperlipidemia, diabetes and PAD. . Report Signatures Finalized by EVA Eaton DO on 09/14/2023 09:12 AM [place] [facility] Alan Cristobal III, DO - 09/14/2023 Patient Info Name: GREGG FOSTER Age: 68 years : 1955 Gender: Male Exam Date: 09/14/2023 7:33 AM Patient Status: Inpatient Colon Therapist: Maria De Jesus Majano, CHITOT, RVS Referring Physician: EMILIANO Gold; Indications - Severe peripheral vascular disease with gangrene I73.9 - Peripheral vascular disease, unspecified Procedure Description [id number] Duplex scan of lower extremity arteries or arterial bypass grafts using B-mode, color and spectral Doppler; unilateral or limited study. Conclusions * Right. * Greater than 70% stenosis in the right mid superficial femoral artery. * Segmental occlusions noted in scalp treatment specialist tibial, peroneal and anterior tibial arteries. * Occlusion noted in the right distal anterior tibial artery. * Abnormal, monophasic flow is noted in the popliteal, posterior tibial, peroneal and anterior tibial arteries. Right Measurements Name Value Right PSV Right Distal EIA PSV 65 cm/s Right Mid LEAD MAN OVER ALL DIES IN PATTERN SHOP PSV 57 cm/s Right Prox Profunda PSV 72 cm/s Right Prox SFA PSV 29 cm/s Right Mid SFA PSV 445 cm/s Right Distal SFA PSV 31 cm/s Right Prox Pop A PSV 22 cm/s Right Distal Pop A PSV 22 cm/s Right Prox JOE PSV 40 cm/s Right Mid JOE PSV 38 cm/s Right Distal JOE PSV 0 cm/s Right Prox Sandeep A PSV 25 cm/s Right Mid Sandeep A PSV 27 cm/s Right Distal Sandeep A PSV 29 cm/s Right Prox PEOPLESOFT ANALYST PSV 36 cm/s Right Mid PEOPLESOFT ANALYST PSV 43 cm/s Right Distal PEOPLESOFT ANALYST PSV 37 cm/s R FLORENCIO 2.44 Right Measurements Name Value Right EDV Right Distal EIA EDV 15 cm/s Right Mid LEAD MAN OVER ALL DIES IN PATTERN SHOP EDV 11 cm/s Right Prox Profunda EDV 5 cm/s Right Prox SFA EDV 6 cm/s Right Mid SFA EDV 102 cm/s Right Distal SFA EDV 9 cm/s Right Prox Pop A EDV 6 cm/s Right Distal Pop A EDV 8 cm/s Right Prox JOE EDV 7 cm/s Right Mid JOE EDV 5 cm/s Right Distal JOE EDV 0 cm/s Right Prox Sandeep A EDV 7 cm/s Right Mid Sandeep A EDV 10 cm/s Right Distal Sandeep A EDV 10 cm/s Right Prox PEOPLESOFT ANALYST EDV 12 cm/s Right Mid PEOPLESOFT ANALYST EDV 18 cm/s Right Distal PEOPLESOFT ANALYST EDV 13 cm/s Right Findings Calcific plaque noted in the right external iliac, common femoral, profunda femoral, superficial femoral, popliteal, posterior tibial, peroneal and anterior tibial arteries. Risk Factors Patient has a history of CKD, hypertension, hyperlipidemia, diabetes and PAD. . Report Signatures Finalized by EVA Eaton DO on 09/14/2023 09:12 AM [facility] Radiology Study observation (narrative) [facility] Bilirubin.direct [Mass/Vol]o n 09-13-2023 Bilirubin.conjugated [Mass/Vol] 0.6 mg/dL High 0.0 - 0.4 mg/dL [facility] Interpretation and review of laboratory results Abnormal [facility] CBC Auto Differentialon Basophils (Bld) [#/Vol] 0.10 10*3/uL [facility] Basophils/100 WBC (Bld) 0.9 % [facility] Eosinophils (Bld) [#/Vol] 0.14 10*3/uL [facility] Eosinophils/100 WBC (Bld) 1.3 % [facility] Erythrocyte distribution width (RBC) [Entitic vol] 21.0 % High 11.6 - 14.8 % [facility] Hematocrit (Bld) [Volume fraction] 45.3 % 41.0 - 53.0 % [facility] Hemoglobin (Bld) [Mass/Vol] 13.7 g/dL 13.5 - 17.5 g/dL [facility] Immature granulocytes (Bld) [#/Vol] 0.04 10*3/uL [facility] Immature granulocytes/100 WBC (Bld) 0.40 % [facility] Comment on above: The IG parameter is the percentage of metamyelocytes, myelocytes and promyelocytes. An immature granulocyte count (IG) of 1% or more suggests the possibility of infection, an IG count of 3% is very likely related to an infection. Interpretation and review of laboratory results Abnormal [facility] Lymphocytes (Bld) [#/Vol] 1.43 10*3/uL [facility] Lymphocytes/100 WBC (Bld) 13.5 % [facility] MCH (RBC) [Entitic mass] 24.5 pg Low 26.0 - 34.[address] [facility] MCHC (RBC) [Mass/Vol] 30.2 g/dL Low 31.0 - 37.0 g/dL [facility] MCV (RBC) [Entitic vol] 81.0 fL 80.0 - 100.[address] [facility] Monocytes (Bld) [#/Vol] 0.99 10*3/uL High [facility] Monocytes/100 WBC (Bld) 9.4 % [facility] Neutrophils (Bld) [#/Vol] 7.88 10*3/uL High [facility] Neutrophils/100 WBC (Bld) 74.5 % [facility] Nucleated RBC (Bld) [#/Vol] 0.00 10*3/uL [facility] Nucleated RBC/100 WBC (Bld) [Ratio] 0.0 % [facility] Platelet mean volume (Bld) [Entitic vol] 9.3 fL Low 9.4 - 12.[address] [facility] Platelets (Bld) [#/Vol] 269 10*3/uL [facility] RBC (Bld) [#/Vol] 5.59 10*6/uL [facility] ealth WBC (Bld) [#/Vol] 10.58 10*3/uL [facility] CRP, Inflammationon 09-13-19 CRP [Mass/Vol] 17.7 mg/L High NINF - 10.0 mg/L [facility] Comprehensive metabolic 2000 panelon 09-13-2023 Albumin [Mass/Vol] 3.2 g/dL 3.2 - 5.2 g/dL [facility] ALP [Catalytic activity/Vol] 153 U/L High 40 - 150 U/L [facility] ALT [Catalytic activity/Vol] 35 U/L 14 - 65 U/L [facility] Anion gap [Moles/Vol] 12 mmol/L 10 - 2 0 mmol/L [facility] AST [Catalytic activity/Vol] 30 U/L 0-50 U/L [facility] Bilirubin [Mass/Vol] 2.2 mg/dL High 0.0 - 1 .3 mg/dL [facility] Calcium [Mass/Vol] 9.3 mg/dL 8.4 - 10. 2 mg/dL [facility] Chloride [Moles/Vol] 98 mmol/L 98 - 10 8 mmol/L [facility] Creatinine [Mass/Vol] 2.50 mg/dL High 0.80 - 1.30 mg/dL [facility] GFR/1.73 sq M.predicted CKD-EPI (S/P/Bld) [Vol rate/Area] 28 Low - PINF [facility] Comment on above: Estimated GFR was ca lculated using the 2020 CKD-EPI creatinine equation. Glucose [Mass/Vol] 133 mg/dL High 65 - 99 mg/dL [facility] HCO3 [Moles/Vol] 27 mmol/L 21 - 32 mmol/L [facility] Interpretation and review of laboratory results Abnormal [facility] Potassium [Moles/Vol] 4.2 mmol/L 3.5 - 5.1 mmol/L [facility] Protein [Mass/Vol] 7.1 g/dL 6.0 - 8.0 g/dL [facility] Sodium [Moles/Vol] 133 mmol/L Low 135 - 145 mmol/L [facility] Urea nitrogen [Mass/Vol] 50 mg/dL High 8 - 25 mg/dL [facility] Urea nitrogen/Creatinine [Mass ratio] 20.0 mg/mg 10.0 - 20.0 [facility] has implemented the eGFR calculation approach that does not have a coefficient for race that conforms to the NKF-ASN Task Force Recommendations. [facility] ESR Westergren method (Bld) [Velocity]on 09-13-2023 ESR (Bld) [Velocity] 43 mm/h [facility] Interpretation and review of laboratory results Abnormal [facility] Lactate [Moles/Vol]on 2023 Interpretation and review of laboratory results Abnormal [facility] Lactic Acid, Plasmaon 2023 Lactate [Moles/Vol] 2.8 mmol/L High 0.6 - 2. 0 mmol/L [facility] NT Pro BNPon 09-13-2023 Natriuretic peptide.B prohormone N-Terminal [Mass/Vol] 8873 pg/mL High 0 - 300 pg/mL [facility] Natriuretic peptide.B prohor angelique N-Terminal [Mass/Vol]on 09-13-2023 Pride Study Cut-offs Rule In: < /= 50 Years >450 pg/mL 51 Years - 75 Years >900 pg/mL 76 Years - 99 Years >1800 pg/mL Rule Out: All patients <300 pg/mL [facility] No Panel Informationon 09-13 Interpretation and review of laboratory results Abnormal [facility] Reflex Lactic Acid, Plasmaon 09-13-2023 Interpretation and review of laboratory results Abnormal [facility] Lactate [Moles/Vol] 2.2 mmol/L High 0.6 - 2. 0 mmol/L [facility] US DOPPLER CAROTIDon 024 US DOPPLER CAROTID Patient Info Name: GREGG FOSTER Age: 67 years : 1955 Gender: Male Exam Date: 08/30/2023 1:12 PM Patient Status: Outpatient Colon Therapist: Maria De Jesus Majano, DELMY, RVS Referring Physician: SHAHAB BUCKLEY ; Indications I65.21 - Occlusion and stenosis of right carotid artery Procedure Description 15336 Duplex examination using B-mode, color and spectral Doppler of extracranial arteries; complete bilateral study. NASCET criteria is used when performing imaging correlation with carotid duplex interpretation. Conclusions * Right. * Patent right internal carotid artery stent with a maximum peak systolic velocity of 47 cm/s. * Right vertebral artery is patent with antegrade flow. * No evidence of hemodynamically significant stenosis in the right common carotid, external carotid and subclavian arteries. * Left. * Less than 50% stenosis in the left internal carotid artery. * Left vertebral artery is patent with retrograde flow. * No evidence of hemodynamically significant stenosis in the left common carotid, external carotid and subclavian arteries. Measurements Name Value Right PSV Right Prox CCA PSV 33 cm/s Right Mid CCA PSV 30 cm/s Right Distal CCA PSV 25 cm/s Right Prox ICA PSV 53 cm/s Right Mid ICA PSV 26 cm/s Right Distal ICA PSV 32 cm/s Right ECA PSV 141 cm/s Right Vert PSV 51 cm/s Right Prox SCA PSV 49 cm/s Rt ICA/CCA Ratio 1.8 Measurements Name Value Right EDV Right Prox CCA EDV 7 cm/s Right Mid CCA EDV 7 cm/s Right Distal CCA EDV 6 cm/s Right Prox ICA EDV 21 cm/s Right Mid ICA EDV 13 cm/s Right Distal ICA EDV 14 cm/s Right ECA EDV 11 cm/s Right Vert EDV 25 cm/s Right Prox SCA EDV 9 cm/s Stent(s) Measurements Name Value EDV Rt Prox [place] EDV 7 cm/s Rt Stent Origin EDV 7 cm/s Rt Mid Stent EDV 17 cm/s Rt Distal Stent EDV 13 cm/s Rt Distal [place] EDV 15 cm/s Stent(s) Measurements Name Value PSV Rt Prox [place] PSV 25 cm/s Rt Stent Origin PSV 25 cm/s Rt Mid Stent PSV 40 cm/s Rt Distal Stent PSV 47 cm/s Rt Distal [place] PSV 32 cm/s Measurements Name Value Left PSV Left Prox CCA PSV 46 cm/s Left Mid CCA PSV 48 cm/s Left Distal CCA PSV 41 cm/s Left Prox ICA PSV 52 cm/s Left Mid ICA PSV 43 cm/s Left Distal ICA PSV 52 cm/s Left ECA PSV 184 cm/s Left Prox SCA PSV 61 cm/s Lt ICA/CCA Ratio 1.3 Measurements Name Value Left EDV Left Prox CCA EDV 10 cm/s Left Mid CCA EDV 14 cm/s Left Distal CCA EDV 13 cm/s Left Prox ICA EDV 16 cm/s Left Mid ICA EDV 18 cm/s Left Distal ICA EDV 21 cm/s Left ECA EDV 19 cm/s Left Prox SCA EDV 8 cm/s Right Findings * No plaque noted in the right common carotid artery. * No plaque noted in the right internal carotid artery. * Calcific plaque noted in the right external carotid artery. Left Findings * Heterogeneous plaque noted in the left common carotid artery. * Calcific plaque noted in the left internal carotid artery. * Calcific plaque noted in the left external carotid artery. Prior Study Date: 08/26/2022 Risk Factors Patient has a history of CKD, hypertension and diabetes. . Report Signatures Finalized by Shahab Buckley MD, RPVI on 08/30/2023 05:45 PM [facility] US DOPPLER CAROTID Patient Info Name: GREGG FOSTER Age: 67 years : 1955 Gender: Male Exam Date: 08/30/2023 1:12 PM Patient Status: Outpatient Colon Therapist: Maria De Jesus aMjano, RVT, RVS Referring Physician: SHAHAB BUCKLEY ; Indications I65.21 - Occlusion and stenosis of right carotid artery Procedure Description 73247 Duplex examination using B-mode, color and spectral Doppler of extracranial arteries; complete bilateral study. NASCET criteria is used when performing imaging correlation with carotid duplex interpretation. Conclusions * Right. * Patent right internal carotid artery stent with a maximum peak systolic velocity of 47 cm/s. * Right vertebral artery is patent with antegrade flow. * No evidence of hemodynamically significant stenosis in the right common carotid, external carotid and subclavian arteries. * Left. * Less than 50% stenosis in the left internal carotid artery. * Left vertebral artery is patent with retrograde flow. * No evidence of hemodynamically significant stenosis in the left common carotid, external carotid and subclavian arteries. Measurements Name Value Right PSV Right Prox CCA PSV 33 cm/s Right Mid CCA PSV 30 cm/s Right Distal CCA PSV 25 cm/s Right Prox ICA PSV 53 cm/s Right Mid ICA PSV 26 cm/s Right Distal ICA PSV 32 cm/s Right ECA PSV 141 cm/s Right Vert PSV 51 cm/s Right Prox SCA PSV 49 cm/s Rt ICA/CCA Ratio 1.8 Measurements Name Value Right EDV Right Prox CCA EDV 7 cm/s Right Mid CCA EDV 7 cm/s Right Distal CCA EDV 6 cm/s Right Prox ICA EDV 21 cm/s Right Mid ICA EDV 13 cm/s Right Distal ICA EDV 14 cm/s Right ECA EDV 11 cm/s Right Vert EDV 25 cm/s Right Prox SCA EDV 9 cm/s Stent(s) Measurements Name Value EDV Rt Prox [place] EDV 7 cm/s Rt Stent Origin EDV 7 cm/s Rt Mid Stent EDV 17 cm/s Rt Distal Stent EDV 13 cm/s Rt Distal [place] EDV 15 cm/s Stent(s) Measurements Name Value PSV Rt Prox [place] PSV 25 cm/s Rt Stent Origin PSV 25 cm/s Rt Mid Stent PSV 40 cm/s Rt Distal Stent PSV 47 cm/s Rt Distal [place] PSV 32 cm/s Measurements Name Value Left PSV Left Prox CCA PSV 46 cm/s Left Mid CCA PSV 48 cm/s Left Distal CCA PSV 41 cm/s Left Prox ICA PSV 52 cm/s Left Mid ICA PSV 43 cm/s Left Distal ICA PSV 52 cm/s Left ECA PSV 184 cm/s Left Prox SCA PSV 61 cm/s Lt ICA/CCA Ratio 1.3 Measurements Name Value Left EDV Left Prox CCA EDV 10 cm/s Left Mid CCA EDV 14 cm/s Left Distal CCA EDV 13 cm/s Left Prox ICA EDV 16 cm/s Left Mid ICA EDV 18 cm/s Left Distal ICA EDV 21 cm/s Left ECA EDV 19 cm/s Left Prox SCA EDV 8 cm/s Right Findings * No plaque noted in the right common carotid artery. * No plaque noted in the right internal carotid artery. * Calcific plaque noted in the right external carotid artery. Left Findings * Heterogeneous plaque noted in the left common carotid artery. * Calcific plaque noted in the left internal carotid artery. * Calcific plaque noted in the left external carotid artery. Prior Study Date: 08/26/2022 Risk Factors Patient has a history of CKD, hypertension and diabetes. . Report Signatures Finalized by Shahab Buckley MD, RPVI on 08/30/2023 05:45 PM Dictated by: SHAHAB BUCKLEY on MonAug 30, 2023 5:45:51 PM EST Transcribed by: SHAHAB BUCKLEY on MonAug 30, 2023 5:45:51 PM EST Finalized by: SHAHAB BUCKLEY on MonAug 30, 2023 5:45:51 PM EST [facility] CNOVon 07-12-[address] [facility] metabolic 2000 panelon 07-12-2023 Albumin [Mass/Vol] 3.9 g/dL Normal 3.9-4.9 [facility] Comment on above: Order Comment: Speci men Type: BLOOD SPECIMENOrdering Facility: [facility] Address: [address] [place] [address] Performed By: #### 2 4323-8, 56325-6, 97224-3 ####[facility] LABCLIA [id number] [place] [address] [place] ALP [Catalytic activity/Vol] 182 U/L High 38-113 [facility] Comment on above: Order Comment: Speci men Type: BLOOD SPECIMENOrdering Facility: [facility] Address: [address] [place] [address] Performed By: #### 2 4323-8, , 66286-0 ####[facility] LABCLIA [id number] [place] [address] [place] ALT [Catalytic activity/Vol] 47 U/L Normal 10-54 [facility] Comment on above: Order Comment: Speci men Type: BLOOD SPECIMENOrdering Facility: [facility] Address: [address] [place] [address] Performed By: #### 2 4323-8, , 66479-3 ####[facility] LABCLIA [id number] [place] [address] [place] Anion gap [Moles/Vol] 12 mmol/L Normal 9-18 [facility] Comment on above: Order Comment: Speci men Type: BLOOD SPECIMENOrdering Facility: [facility] Address: [address] [place] [address] Performed By: #### 2 4323-8, , 37799-2 ####[facility] LABCLIA [id number] [place] [id number] [place] AST [Catalytic activity/Vol] 32 U/L Normal 14-40 [facility] Comment on above: Order Comment: Speci men Type: BLOOD SPECIMENOrdering Facility: [facility] Address: [address] [place] [id number] Performed By: #### 2 4323-8, 51777-7, 93589-5 ####[facility] LABCLIA [id number] [address] [address] [place] Bilirubin [Mass/Vol] 1.2 mg/dL Normal 0.2-1.3 [facility] Comment on above: Order Comment: Speci men Type: BLOOD SPECIMENOrdering Facility: [facility] Address: [address] [place] [id number] Performed By: #### 2 4323-8, , 69385-6 ####[facility] LABCLIA [id number] [place] [address] [place] Calcium [Mass/Vol] 9.8 mg/dL Normal 8.5-10.2 [facility] Comment on above: Order Comment: Speci men Type: BLOOD SPECIMENOrdering Facility: [facility] Address: [address] [place] [id number] Performed By: #### 2 4323-8, , 83674-2 ####[facility] LABCLIA [id number] [place] [id number] [place] Chloride [Moles/Vol] 98 mmol/L Normal 97-105 [facility] Comment on above: Order Comment: Speci men Type: BLOOD SPECIMENOrdering Facility: [facility] Address: [address] [place] [id number] Performed By: #### 2 4323-8, 91521-7, 26937-1 ####[facility] LABCLIA [id number] [place] [id number] [place] CO2 [Moles/Vol] 29 mmol/L Normal 22-30 [facility] Comment on above: Order Comment: Speci men Type: BLOOD SPECIMENOrdering Facility: [facility] Address: [address] [place] [id number] Performed By: #### 2 4323-8, 84144-1, 83358-6 ####[facility] LABIA [id number] [place] [id number] [place] Creatinine [Mass/Vol] 1.95 mg/dL High 0.73-1.22 [facility] Comment on above: Order Comment: Speci men Type: BLOOD SPECIMENOrdering Facility: [facility] Address: [address] [place] [address] Performed By: #### 2 4323-8, 49532-1, 47345-2 ####[facility] LABIA [id number] [place] [address] [place] Creatinine and Glomerular filtration rate.predicted panel (S/P/Bld) 37 mL/min/1.73m??? Low >=60 [facility] Comment on above: Order Comment: Joseline men Type: BLOOD SPECIMENOrdering Facility: [facility] Address: [address] [place] [address] Result Comment: Syl mated Glomerular Filtration Rate [...] actual GFR. Performed By: #### 2 4323-8, 48814-7, 95525-0 ####[facility] LABIA [id number] [place] [id number] [place] Glucose [Mass/Vol] 177 mg/dL High 74-99 [facility] Comment on above: Order Comment: Speci men Type: BLOOD SPECIMENOrdering Facility: [facility] Address: [address] [place] [address] Result Comment: The [place] [employer] (ADA) provides guidance for cutoff [...] Standards of Medical Care in Diabetes 2016, [place] [employer]. Diabetes Care. 2016.39(Suppl 1). Performed By: #### 2 4323-8, , 85766-1 ####[facility] LABCLIA [id number] [place] [address] [place] Potassium [Moles/Vol] 3.9 mmol/L Normal 3.7-5.1 [facility] Comment on above: Order Comment: Speci men Type: BLOOD SPECIMENOrdering Facility: [facility] Address: [address] [place] [address] Performed By: #### 2 4323-8, , 09216-5 ####[facility] LABCLIA [id number] [place] [address] [place] Protein [Mass/Vol] 7.5 g/dL Normal 6.3-8.0 [facility] Comment on above: Order Comment: Speci men Type: BLOOD SPECIMENOrdering Facility: [facility] Address: [address] [place] [address] Performed By: #### 2 4323-8, , 60850-8 ####[facility] LABCLIA [id number] [place] [id number] [place] Sodium [Moles/Vol] 139 mmol/L Normal 136-144 [facility] Comment on above: Order Comment: Speci men Type: BLOOD SPECIMENOrdering Facility: [facility] Address: [address] [place] [address] Performed By: #### 2 4323-8, , 73989-7 ####[facility] LABIA [id number] [place] [address] [place] Urea nitrogen [Mass/Vol] 47 mg/dL High 9-24 [facility] Comment on above: Order Comment: Speci men Type: BLOOD SPECIMENOrdering Facility: [facility] Address: [address] [place] [address] Performed By: #### 2 4323-8, 52834-6, 28877-6 ####[facility] LABIA [id number] [place] [address] [place] Magnesium [facility] 07-12 Magnesium [Mass/Vol] 2.4 mg/dL High 1.7-2.3 [facility] Comment on above: Order Comment: Speci men Type: BLOOD SPECIMENOrdering Facility: [facility] Address: [address] [place] [address] Performed By: #### 2 4323-8, 91809-4, 27767-6 ####[facility] [id number] [place] [address] [place] NT-proBNP [facility] 07-12 Natriuretic peptide.B prohormone N-Terminal [Mass/Vol] 4783 pg/mL High <125 [facility] Comment on above: Order Comment: Speci men Type: BLOOD SPECIMENOrdering Facility: [facility] Address: [address] [place] [address] Performed By: #### 2 4323-8, 58300-5, 93620-3 ####[facility] [id number] [place] [address] [place] ICD REMOTE CHECKon 3 AV Delay Adaptive Paced Minimum (ms) 140 ms [facility] AV Delay Adaptive Sensed Minimum (ms) 100 ms [facility] Federico LV Pacing Amplitude (volts) 2.3 V [facility] Federico LV Pacing Pulse Width (ms) 0.5 ms [facility] federico LV Sensing Amplitude (mvolts) 1.0 mV [facility] Federico RA Pacing Amplitude (volts) 2.0 V [facility] Federico RA Pacing Polarity BI [facility] Federico RA Pacing Pulse Width (ms) 0.4 ms [facility] Federico RA Sensing Amplitude (mvolts) 0.25 mV [facility] Federico RA Sensing Polarity BI [facility] Federico RV Pacing Amplitude (volts) 2.0 V [facility] Federico RV Pacing Polarity BI [facility] Federico RV Pacing Pulse Width (ms) 0.4 ms [facility] Federico RV Sensing Amplitude (mvolts) 0.3 mV [facility] Federico RV Sensing Polarity BI [facility] Detection Configuration (Vent) 2 - Zone [facility] FastVT_Detection Interval 300 ms [facility] FastVT_Therapy Configuration 1 ATP(s) + 8 Shock(s) [facility] ICD FastVT DetectionStatus ENABLED [facility] ICD-AMS EPISODES 170 {beats}/min [facility] ICD-ATP Episodes (Vent) 0 [facility] ICD-ATRIALFIBRILLATIO N 7 [facility] ICD-ATRIALTACHYCARDIA 7 [facility] ICD-Device Mfg BSX [facility] ICD-LEADIMPEDANCEATRI AL 821 ohm [facility] ICD-Percent Pacing (Atrial) 0 % [facility] ICD-Percent Pacing (Vent) 64 % [facility] ICD-Shocks Aborted (Vent) 0 [facility] [id number] 0 [facility] ICD-SHOCKSABORTED 0 [facility] ICD-SHOCKSDELIVEREDVE NTRICULAR 0 [facility] ICD-Ventricular Fibrillation 0 [facility] Implant Date 10/18/2017 [facility] Lead Impedance (LV) 1064 ohm [facility] Lead Impedance (RV) 602 ohm [facility] Lead Impedance High Voltage 96 ohm [facility] Lead1 Mfg X [facility] Lead2 Mfg BSX [facility] Lead3 Mfg BSX [facility] Location LV [facility] Location RA [facility] Location RV [facility] Lower Rate (bpm) 60 {beats}/min [facility] LV PACING % 92 % [facility] Max Sensor Rate (bpm) 130 {beats}/min [facility] MDT_PROG_TACHY_ZONE_D ETECTIONS_STATUS ENABLED [facility] Model G247 VIGILANT X4 ANTENNA MACHINE OPERATOR-D Cl [facility] Model 4671 Acuity X4 Straight C [facility] Model 7841 Ingevity + MRI [facility] Model 0292 [place]otak Relianc e 4-Site SG [facility] Pacing Mode DDD [facility] Serial Number [id number] [facility] Serial Number [id number] [facility] Serial Number [id number] [facility] Serial Number [id number] [facility] Test Charge Time 9.9 s [facility] Therapy Status (Vent) Enabled [facility] Thresh LV Capture Amplitude (volts) 1.1 V [facility] Thresh LV Capture Duration (ms) 0.5 ms [facility] Thresh RV Capture Amplitude (VOLTS) 0.6 V [facility] Thresh RV Capture Duration (MS) 0.4 ms [facility] Tracking Rate (bpm) 130 {beats}/min [facility] VF Zone Detection Interval 300 ms [facility] VF Zone Therapy Configuration 1 ATP(s) + 8 Shock(s) [facility] No Panel Informationon 07-04 BLANK _ [facility] ICD-ATRIALTACHYCARDIA 0 [facility] ICD-Fast Ventricular Tachycardia 0 [facility] Implant Date 03/31/2023 [facility] CNNURSEon 06-27-2023 CNNURSE Normal [facility] CNOVon 06-27-2023 CNOV Normal [facility] ANES POSTPROC EVALon 023 ANES POSTPROC EVAL Normal [facility] ANES PRE-OPon 06-16-2023 ANES PRE-OP Normal [facility] Basic metabolic 2000 panelon 06-16-2023 Anion gap [Moles/Vol] 14 mmol/L Normal 9-18 [facility] Comment on above: Order Comment: Speci men Type: BLOOD SPECIMENOrdering Facility: [facility] Address: [address] [place] [address] Performed By: #### 2 4321-2 ####[facility] LABCLIA [id number] [place] [address] [place] Calcium [Mass/Vol] 10.2 mg/dL Normal 8.5-10.2 [facility] Comment on above: Order Comment: Speci men Type: BLOOD SPECIMENOrdering Facility: [facility] Address: [address] [place] [address] Performed By: #### 2 4321-2 ####[facility] LABCLIA [id number] [place] [address] [place] Chloride [Moles/Vol] 98 mmol/L Normal 97-105 [facility] Comment on above: Order Comment: Speci men Type: BLOOD SPECIMENOrdering Facility: [facility] Address: [address] [place] [address] Performed By: #### 2 4321-2 ####[facility] LABCLIA [id number] [place] [address] [place] CO2 [Moles/Vol] 25 mmol/L Normal 22-30 [facility] Comment on above: Order Comment: Speci men Type: BLOOD SPECIMENOrdering Facility: [facility] Address: [address] [place] [address] Performed By: #### 2 4321-2 ####[facility] LABCLIA [id number] [place] [address] [place] Creatinine [Mass/Vol] 2.00 mg/dL High 0.73-1.22 [facility] Comment on above: Order Comment: Speci men Type: BLOOD SPECIMENOrdering Facility: [facility] Address: [address] [place] [address] Performed By: #### 2 4321-2 ####[facility] LABCLIA [id number] [address] [place] Creatinine and Glomerular filtration rate.predicted panel (S/P/Bld) 36 mL/min/1.73m??? Low >=60 [facility] Comment on above: Order Comment: Speci men Type: BLOOD SPECIMENOrdering Facility: [facility] Address: [address] [place] [address] Result Comment: Syl mated Glomerular Filtration Rate [...] actual GFR. Performed By: #### 2 4321-2 ####[facility] LABCLIA [id number] [place] [address] [place] Glucose [Mass/Vol] 216 mg/dL High 74-99 [facility] Comment on above: Order Comment: Speci men Type: BLOOD SPECIMENOrdering Facility: [facility] Address: [address] [place] [address] Result Comment: The [place] [employer] (ADA) provides guidance for cutoff [...] Standards of Medical Care in Diabetes 2016, [place] [employer]. Diabetes Care. 2016.39(Suppl 1). Performed By: #### 2 4321-2 ####[facility] LABCLIA [id number] [place] [address] [place] Potassium [Moles/Vol] 4.3 mmol/L Normal 3.7-5.1 [facility] Comment on above: Order Comment: Joseline clemons Type: BLOOD SPECIMENOrdering Facility: [facility] Address: [address] [id number] Performed By: #### 2 4321-2 ####[facility] LABCLIA [id number] [place] [address] [place] Sodium [Moles/Vol] 137 mmol/L Normal 136-144 [facility] Comment on above: Order Comment: Speci men Type: BLOOD SPECIMENOrdering Facility: [facility] Address: [address] [id number] Performed By: #### 2 4321-2 ####[facility] LABCLIA [id number] [place] [id number] [place] Urea nitrogen [Mass/Vol] 59 mg/dL High 9-24 [facility] Comment on above: Order Comment: Speci men Type: BLOOD SPECIMENOrdering Facility: [facility] Address: [place] [address] Performed By: #### 2 4321-2 ####[facility] LABIA [id number] [place] [id number] [place] CNOVon 06-16-2023 CNOV Normal [facility] ECG COMPLETEon 06-16-2023 ECG COMPLETE Normal [facility] ECG COMPLETE Normal [facility] HISTORY PHYSICALon 3 HISTORY PHYSICAL Normal [facility] ICD CLINIC CHECKon 3 AV Delay Adaptive Paced Minimum (ms) 140 ms [facility] AV Delay Adaptive Sensed Minimum (ms) 100 ms [facility] Federico LV Pacing Amplitude (volts) 2.3 V [facility] Federico LV Pacing Pulse Width (ms) 0.5 ms [facility] federico LV Sensing Amplitude (mvolts) 1.0 mV [facility] Federico RA Pacing Amplitude (volts) 5.0 V [facility] Federico RA Pacing Polarity BI [facility] Federico RA Pacing Pulse Width (ms) 0.4 ms [facility] Federico RA Sensing Amplitude (mvolts) 0.25 mV [facility] Federico RA Sensing Polarity BI [facility] Fed[place]ico RV Pacing Amplitude (volts) 2.0 V [facility] Federico RV Pacing Polarity BI [facility] Federico RV Pacing Pulse Width (ms) 0.4 ms [facility]ico RV Sensing Amplitude (mvolts) 0.3 mV [facility] Federico RV Sensing Polarity BI [facility] Detection Configuration (Vent) 2 - Zone [facility] FastVT_Detection Interval 300 ms [facility] FastVT_Therapy Configuration 1 ATP(s) + 8 Shock(s) [facility] ICD FastVT DetectionStatus ENABLED [facility] ICD-AMS EPISODES 170 {beats}/min [facility] ICD-ATP Episodes (Vent) 0 [facility] ICD-ATRIALFIBRILLATIO N 3 [facility] ICD-Device Mfg BSX [facility] ICD-Fast Ventricular Tachycardia 1 [facility] ICD-LEADIMPEDANCEATRI AL 838 ohm [facility] ICD-Percent Pacing (Atrial) 0 % [facility] ICD-Percent Pacing (Vent) 83 % [facility] ICD-Shocks Aborted (Vent) 0 [facility] [id number] 0 [facility] ICD-SHOCKSABORTED 0 [facility] ICD-SHOCKSDELIVEREDVE NTRICULAR 0 [facility] ICD-Ventricular Fibrillation 0 [facility] Implant Date 10/18/2017 [facility] Lead Impedance (LV) 1043 ohm [facility] Lead Impedance (RV) 566 ohm [facility] Lead Impedance High Voltage 87 ohm [facility] Lead1 Mfg BSX [facility] Lead2 Mfg BSX [facility] Lead3 Mfg BSX [facility] Location LV [facility] Location RA [facility] Location RV [facility] Lower Rate (bpm) 60 {beats}/min [facility] LV PACING % 92 % [facility] Max Sensor Rate (bpm) 130 {beats}/min [facility] MDT_PROG_TACHY_ZONE_D ETECTIONS_STATUS ENABLED [facility] Model G247 VIGILANT X4 ANTENNA MACHINE OPERATOR-D Cl [facility] Model 4671 Acuity X4 Straight [facility] Model 7841 Ingevity + MRI [facility] Model 0292 [place] Relianc e 4-Site SG [facility] Pacing Mode DDD [facility] Serial Number [id number] [facility] Serial Number [id number] [facility] Serial Number [id number] [facility] Serial Number [id number] [facility] Test Charge Time 9.9 s [facility] Therapy Status (Vent) Enabled [facility] Thresh LV Capture Amplitude (volts) 1.1 V [facility] Thresh LV Capture Duration (ms) 0.5 ms [facility] Thresh RV Capture Amplitude (VOLTS) 0.7 V [facility] Thresh RV Capture Duration (MS) 0.4 ms [facility] Tracking Rate (bpm) 130 {beats}/min [facility] VF Zone Detection Interval 300 ms [facility] VF Zone Therapy Configuration 1 ATP(s) + 8 Shock(s) [facility] No Panel Informationon 06-16 BLANK _ [facility] ICD-Fast Ventricular Tachycardia 0 [facility] Implant Date 03/31/2023 [facility] CNCNPATEDon 06-15-2023 CNCNPATED Normal [facility] ICD REMOTE CHECKon AV Delay Adaptive Paced Minimum (ms) 140 ms [facility] AV Delay Adaptive Sensed Minimum (ms) 100 ms [facility] Federico LV Pacing Amplitude (volts) 2.3 V [facility] Fed[place]ico LV Pacing Pulse Width (ms) 0.5 ms [facility] federico LV Sensing Amplitude (mvolts) 1.0 mV [facility] Fed[place]ico RA Pacing Amplitude (volts) 5.0 V [facility] Federico RA Pacing Polarity BI [facility] Fed[place]ico RA Pacing Pulse Width (ms) 0.4 ms [facility] Federico RA Sensing Amplitude (mvolts) 0.25 mV [facility] Federico RA Sensing Polarity BI [facility] Federico RV Pacing Amplitude (volts) 2.0 V [facility] Federico RV Pacing Polarity BI [facility] Fed[place]ico RV Pacing Pulse Width (ms) 0.4 ms [facility] Federico RV Sensing Amplitude (mvolts) 0.3 mV [facility] Federico RV Sensing Polarity BI [facility] Detection Configuration (Vent) 2 - Zone [facility] FastVT_Detection Interval 300 ms [facility] FastVT_Therapy Configuration 1 ATP(s) + 8 Shock(s) [facility] ICD FastVT DetectionStatus ENABLED [facility] ICD-AMS EPISODES 170 {beats}/min [facility] ICD-ATP Episodes (Vent) 0 [facility] ICD-ATRIALFIBRILLATIO N 3 [facility] ICD-ATRIALTACHYCARDIA 3 [facility] ICD-Device Mfg BSX [facility] ICD-Fast Ventricular Tachycardia 1 [facility] ICD-LEADIMPEDANCEATRI AL 800 ohm [facility] ICD-Percent Pacing (Atrial) 0 % [facility] ICD-Percent Pacing (Vent) 83 % [facility] ICD-Shocks Aborted (Vent) 0 [facility] [id number]-SHOCKSABORTED 0 [facility] ICD-SHOCKSDELIVEREDVE NTRICULAR 0 [facility] ICD-Ventricular Fibrillation 0 [facility] Implant Date 10/18/2017 [facility] Lead Impedance (LV) 1029 ohm [facility] Lead Impedance (RV) 551 ohm [facility] Lead Impedance High Voltage 81 ohm [facility] Lead1 Mfg BSX [facility] Lead2 Mfg BSX [facility] Lead3 Mfg BSX [facility] Location LV [facility] Location RA [facility] Location RV [facility] Lower Rate (bpm) 60 {beats}/min [facility] LV PACING % 93 % [facility] Max Sensor Rate (bpm) 130 {beats}/min [facility] MDT_PROG_TACHY_ZONE_D ETECTIONS_STATUS ENABLED [facility] Model G247 VIGILANT X4 ANTENNA MACHINE OPERATOR-D Cl [facility] Model 4671 Acuity X4 Straight [facility] Model 7841 Ingevity + MRI [facility] Model 0292 [place] Relianc e 4-Site SG [facility] Pacing Mode DDD [facility] Serial Number [id number] [facility] Serial Number [id number] [facility] Serial Number [id number] [facility] Serial Number [id number] [facility] Test Charge Time 9.9 s [facility] Therapy Status (Vent) Enabled [facility] Thresh LV Capture Amplitude (volts) 1.1 V [facility] Thresh LV Capture Duration (ms) 0.5 ms [facility] Thresh RV Capture Amplitude (VOLTS) 0.7 V [facility] Thresh RV Capture Duration (MS) 0.4 ms [facility] Tracking Rate (bpm) 130 {beats}/min [facility] VF Zone Detection Interval 300 ms [facility] VF Zone Therapy Configuration 1 ATP(s) + 8 Shock(s) [facility] No Panel Informationon 06-12 BLANK _ [facility] ICD-ATRIALTACHYCARDIA 1 [facility] ICD-ATRIALTACHYCARDIA 0 [facility] ICD-Fast Ventricular Tachycardia 0 [facility] Implant Date 03/31/2023 [facility] CNPNon 06-07-2023 CNPN Normal [facility] ICD REMOTE CHECKon 3 AV Delay Adaptive Paced Minimum (ms) 140 ms [facility] AV Delay Adaptive Sensed Minimum (ms) 100 ms [facility] Federico LV Pacing Amplitude (volts) 2.3 V [facility] [place]ico LV Pacing Pulse Width (ms) 0.5 ms [facility] federico LV Sensing Amplitude (mvolts) 1.0 mV [facility] Federico RA Pacing Amplitude (volts) 5.0 V [facility] Federico RA Pacing Polarity BI [facility] [place]ico RA Pacing Pulse Width (ms) 0.4 ms [facility] [place]ico RA Sensing Amplitude (mvolts) 0.25 mV [facility] Federico RA Sensing Polarity BI [facility] [place]ico RV Pacing Amplitude (volts) 2.0 V [facility] [place] RV Pacing Polarity BI [facility] [place] RV Pacing Pulse Width (ms) 0.4 ms [facility] [place] RV Sensing Amplitude (mvolts) 0.3 mV [facility] [place]ico RV Sensing Polarity BI [facility] Detection Configuration (Vent) 2 - Zone [facility] FastVT_Detection Interval 300 ms [facility] FastVT_Therapy Configuration 1 ATP(s) + 8 Shock(s) [facility] ICD FastVT DetectionStatus ENABLED [facility] ICD-AMS EPISODES 170 {beats}/min [facility] ICD-ATP Episodes (Vent) 0 [facility] ICD-ATRIALFIBRILLATIO N 3 [facility] ICD-ATRIALTACHYCARDIA 3 [facility] ICD-Device Mfg BSX [facility] ICD-Fast Ventricular Tachycardia 1 [facility] ICD-LEADIMPEDANCEATRI AL 765 ohm [facility] ICD-Percent Pacing (Atrial) 0 % [facility] ICD-Percent Pacing (Vent) 83 % [facility] ICD-Shocks Aborted (Vent) 0 [facility] [id number] 0 [facility] ICD-SHOCKSABORTED 0 [facility] ICD-SHOCKSDELIVEREDVE NTRICULAR 0 [facility] ICD-Ventricular Fibrillation 0 [facility] Implant Date 10/18/2017 [facility] Lead Impedance (LV) 966 ohm [facility] Lead Impedance (RV) 554 ohm [facility] Lead Impedance High Voltage 81 ohm [facility] Lead1 Mfg X [facility] Lead2 Mfg X [facility] Lead3 Mfg X [facility] Location LV [facility] Location RA [facility] Location RV [facility] Lower Rate (bpm) 60 {beats}/min [facility] LV PACING % 94 % [facility] Max Sensor Rate (bpm) 130 {beats}/min [facility] MDT_PROG_TACHY_ZONE_D ETECTIONS_STATUS ENABLED [facility] Model G247 VIGILANT X4 ANTENNA MACHINE OPERATOR-D Cl [facility] Model 4671 Acuity X4 Straight [facility] Model 7841 Ingevity + MRI [facility] Model 0292 [place] Relianc e 4-Site SG [facility] Pacing Mode DDD [facility] Serial Number [id number] [facility] Serial Number [id number] [facility] Serial Number [id number] [facility] Serial Number [id number] [facility] Test Charge Time 9.9 s [facility] Therapy Status (Vent) Enabled [facility] Thresh LV Capture Amplitude (volts) 1.0 V [facility] Thresh LV Capture Duration (ms) 0.5 ms [facility] Thresh RV Capture Amplitude (VOLTS) 0.7 V [facility] Thresh RV Capture Duration (MS) 0.4 ms [facility] Tracking Rate (bpm) 130 {beats}/min [facility] VF Zone Detection Interval 300 ms [facility] VF Zone Therapy Configuration 1 ATP(s) + 8 Shock(s) [facility] No Panel Informationon 06-05 BLANK _ [facility] ICD-ATRIALTACHYCARDIA 1 [facility] ICD-ATRIALTACHYCARDIA 0 [facility] ICD-Fast Ventricular Tachycardia 0 [facility] Implant Date 03/31/2023 [facility] CNPNon 05-24-2023 CNPN Normal [facility] ICD REMOTE CHECKon AV Delay Adaptive Paced Minimum (ms) 140 ms [facility] AV Delay Adaptive Sensed Minimum (ms) 100 ms [facility] Federico LV Pacing Amplitude (volts) 2.3 V [facility] [place]ico LV Pacing Pulse Width (ms) 0.5 ms [facility] federico LV Sensing Amplitude (mvolts) 1.0 mV [facility] [place]ico RA Pacing Amplitude (volts) 5.0 V [facility] Federico RA Pacing Polarity BI [facility] [place] RA Pacing Pulse Width (ms) 0.4 ms [facility] [place]ico RA Sensing Amplitude (mvolts) 0.25 mV [facility] Fed[place]ico RA Sensing Polarity BI [facility] [place] RV Pacing Amplitude (volts) 2.0 V [facility] [place]ico RV Pacing Polarity BI [facility] [place] RV Pacing Pulse Width (ms) 0.4 ms [facility] [place] RV Sensing Amplitude (mvolts) 0.3 mV [facility] [place]ico RV Sensing Polarity BI [facility] Detection Configuration (Vent) 2 - Zone [facility] FastVT_Detection Interval 300 ms [facility] FastVT_Therapy Configuration 1 ATP(s) + 8 Shock(s) [facility] ICD FastVT DetectionStatus ENABLED [facility] ICD-AMS EPISODES 170 {beats}/min [facility] ICD-ATP Episodes (Vent) 0 [facility] ICD-ATRIALFIBRILLATIO N 1 [facility] ICD-Device Mfg BSX [facility] ICD-LEADIMPEDANCEATRI AL 804 ohm [facility] ICD-Percent Pacing (Atrial) 0 % [facility] ICD-Percent Pacing (Vent) 83 % [facility] ICD-Shocks Aborted (Vent) 0 [facility] [id number] 0 [facility] ICD-SHOCKSABORTED 0 [facility] ICD-SHOCKSDELIVEREDVE NTRICULAR 0 [facility] ICD-Ventricular Fibrillation 0 [facility] Implant Date 10/18/2017 [facility] Lead Impedance (LV) 1060 ohm [facility] Lead Impedance (RV) 529 ohm [facility] Lead Impedance High Voltage 84 ohm [facility] Lead1 Mfg BSX [facility] Lead2 Mfg BSX [facility] Lead3 Mfg BSX [facility] Location LV [facility] Location RA [facility] Location RV [facility] Lower Rate (bpm) 60 {beats}/min [facility] LV PACING % 93 % [facility] Max Sensor Rate (bpm) 130 {beats}/min [facility] MDT_PROG_TACHY_ZONE_D ETECTIONS_STATUS ENABLED [facility] Model G247 VIGILANT X4 ANTENNA MACHINE OPERATOR-D Cl [facility] Model 4671 Acuity X4 Straight [facility] Model 7841 Ingevity + MRI [facility] Model 0292 [place] Relianc e 4-Site SG [facility] Pacing Mode DDD [facility] Serial Number [id number] [facility] Serial Number [id number] [facility] Serial Number [id number] [facility] Serial Number [id number] [facility] Test Charge Time 9.9 s [facility] Therapy Status (Vent) Enabled [facility] Thresh LV Capture Amplitude (volts) 1.3 V [facility] Thresh LV Capture Duration (ms) 0.5 ms [facility] Thresh RV Capture Amplitude (VOLTS) 0.7 V [facility] Thresh RV Capture Duration (MS) 0.4 ms [facility] Tracking Rate (bpm) 130 {beats}/min [facility] VF Zone Detection Interval 300 ms [facility] VF Zone Therapy Configuration 1 ATP(s) + 8 Shock(s) [facility] No Panel Informationon 05-19 BLANK _ [facility] ICD-ATRIALTACHYCARDIA 1 [facility] ICD-ATRIALTACHYCARDIA 0 [facility] ICD-Fast Ventricular Tachycardia 0 [facility] Implant Date 03/31/2023 [facility] CNPNon 05-16-2023 CNPN Normal [facility] CNPNon 05-15-2023 CNPN Normal [facility] ICD CLINIC CHECKon AV Delay Adaptive Paced Minimum (ms) 140 ms [facility] AV Delay Adaptive Sensed Minimum (ms) 100 ms [facility] Federico LV Pacing Amplitude (volts) 2.3 V [facility] [place] LV Pacing Pulse Width (ms) 0.5 ms [facility] federico LV Sensing Amplitude (mvolts) 1.0 mV [facility] Federico RA Pacing Amplitude (volts) 5.0 V [facility] Federico RA Pacing Polarity BI [facility] [place] RA Pacing Pulse Width (ms) 0.4 ms [facility] [place]ico RA Sensing Amplitude (mvolts) 0.25 mV [facility] Federico RA Sensing Polarity BI [facility] Federico RV Pacing Amplitude (volts) 2.0 V [facility] Federico RV Pacing Polarity BI [facility] [place] RV Pacing Pulse Width (ms) 0.4 ms [facility] [place] RV Sensing Amplitude (mvolts) 0.3 mV [facility] Federico RV Sensing Polarity BI [facility] Detection Configuration (Vent) 2 - Zone [facility] FastVT_Detection Interval 300 ms [facility] FastVT_Therapy Configuration 1 ATP(s) + 8 Shock(s) [facility] ICD FastVT DetectionStatus ENABLED [facility] ICD-AMS EPISODES 170 {beats}/min [facility] ICD-ATP Episodes (Vent) 0 [facility] ICD-ATRIALFIBRILLATIO N 6 [facility] ICD-Device Mfg BSX [facility] ICD-LEADIMPEDANCEATRI AL 816 ohm [facility] ICD-Percent Pacing (Atrial) 0 % [facility] ICD-Percent Pacing (Vent) 52 % [facility] ICD-Rhythm Atrial Fibrillation [facility] ICD-Shocks Aborted (Vent) 0 [facility] [id number] 0 [facility] ICD-SHOCKSABORTED 0 [facility] ICD-SHOCKSDELIVEREDVE NTRICULAR 0 [facility] ICD-Ventricular Fibrillation 0 [facility] Implant Date 10/18/2017 [facility] Lead Impedance (LV) 1029 ohm [facility] Lead Impedance (RV) 532 ohm [facility] Lead Impedance High Voltage 91 ohm [facility] Lead1 Mfg BSX [facility] Lead2 Mfg BSX [facility] Lead3 Mfg BSX [facility] Location LV [facility] Location RA [facility] Location RV [facility] Lower Rate (bpm) 60 {beats}/min [facility] LV PACING % 91 % [facility] Max Sensor Rate (bpm) 130 {beats}/min [facility] MDT_PROG_TACHY_ZONE_D ETECTIONS_STATUS ENABLED [facility] Model G247 VIGILANT X4 ANTENNA MACHINE OPERATOR-D Cl [facility] Model 4671 Acuity X4 Straight [facility] Model 7841 Ingevity + MRI [facility] Model 0292 [place] Relianc e 4-Site SG [facility] Pacemaker Dependent? NO [facility] Pacing Mode DDD [facility] Serial Number [id number] [facility] Serial Number [id number] [facility] Serial Number [id number] [facility] Serial Number [id number] [facility] Test Charge Time 9.9 s [facility] Therapy Status (Vent) Enabled [facility] Thresh LV Capture Amplitude (volts) 1.1 V [facility] Thresh LV Capture Duration (ms) 1.0 ms [facility] Thresh RA Capture Amplitude (volts) 0.6 V [facility] Thresh RA Capture Duration (ms) 0.4 ms [facility] Thresh RA Sensing Amplitude (mvolts) 3 mV [facility] Thresh RV Capture Amplitude (VOLTS) 0.7 V [facility] Thresh RV Capture Duration (MS) 0.4 ms [facility] Thresh RV Sensing Amplitude (MVOLTS) 13.9 mV [facility] Tracking Rate (bpm) 130 {beats}/min [facility] VF Zone Detection Interval 300 ms [facility] VF Zone Therapy Configuration 1 ATP(s) + 8 Shock(s) [facility] No Panel Informationon 05-12 BLANK _ [facility] ICD-Fast Ventricular Tachycardia 0 [facility] Implant Date 03/31/2023 [facility] CNPNon 04-27-2023 CNPN Normal [facility] Basic metabolic 2000 panelon 04-26-2023 Anion gap [Moles/Vol] 15 mmol/L 9 - 18 mmol/L [facility] Calcium [Mass/Vol] 9.8 mg/dL 8.5 - 10. 2 mg/dL [facility] Chloride [Moles/Vol] 96 mmol/L Low 97 - 10 5 mmol/L [facility] CO2 [Moles/Vol] 24 mmol/L 22 - 30 mmol/L [facility] Creatinine [Mass/Vol] 2.07 mg/dL High 0.73 - 1.22 mg/dL [facility] Estimated Glomerular Filtration Rate 35 mL/min/1.73m Low >=60 mL/min/1.73 m [facility] Glucose [Mass/Vol] 100 mg/dL High 74 - 99 mg/dL [facility] Potassium [Moles/Vol] 4.6 mmol/L 3.7 - 5.1 mmol/L [facility] Sodium [Moles/Vol] 135 mmol/L Low 136 - 144 mmol/L [facility] Urea nitrogen [Mass/Vol] 77 mg/dL High 9 - 24 mg/dL [facility] Anion gap [Moles/Vol] 15 mmol/L Normal 9-18 [facility] Comment on above: Order Comment: Speci men Type: BLOOD SPECIMENOrdering Facility: [facility] Address: [address] [address] Performed By: #### 3 3762-6, 22263-3 ####[facility] LABCLIA [id number] [place] [address] [place] Calcium [Mass/Vol] 9.8 mg/dL Normal 8.5-10.2 [facility] Comment on above: Order Comment: Speci men Type: BLOOD SPECIMENOrdering Facility: [facility] Address: [address] [id number] Performed By: #### 3 3762-6, 25996-4 ####[facility] LABCLIA [id number] [address] [address] [place] Chloride [Moles/Vol] 96 mmol/L Low 97-105 [facility] Comment on above: Order Comment: Speci men Type: BLOOD SPECIMENOrdering Facility: [facility] Address: [address] [address] Performed By: #### 3 3762-6, 10530-7 ####[facility] LABIA [id number] [place] [address] [place] CO2 [Moles/Vol] 24 mmol/L Normal 22-30 [facility] Comment on above: Order Comment: Speci men Type: BLOOD SPECIMENOrdering Facility: [facility] Address: [address] [address] Performed By: #### 3 3762-6, 50605-0 ####[facility] LABIA [id number] [address] [place] Creatinine [Mass/Vol] 2.07 mg/dL High 0.73-1.22 [facility] Comment on above: Order Comment: Speci men Type: BLOOD SPECIMENOrdering Facility: [facility] Address: [address] [address] Performed By: #### 3 3762-6, 92740-2 ####[facility] LABIA [id number] [address] OF [facility] Creatinine and Glomerular filtration rate.predicted panel (S/P/Bld) 35 mL/min/1.73m??? Low >=60 [facility] Comment on above: Order Comment: Speci men Type: BLOOD SPECIMENOrdering Facility: [facility] Address: [address] [place] [address] Result Comment: Syl mated Glomerular Filtration Rate [...] actual GFR. Performed By: #### 3 3762-6, 76611-4 ####[facility] LABIA [id number] [place] [address] [place] Glucose [Mass/Vol] 100 mg/dL High 74-99 [facility] Comment on above: Order Comment: Speci men Type: BLOOD SPECIMENOrdering Facility: [facility] Address: [address] [place] [address] Result Comment: The [place] [employer] (ADA) provides guidance for cutoff [...] Standards of Medical Care in Diabetes 2016, [place] [employer]. Diabetes Care. 2016.39(Suppl 1). Performed By: #### 3 3762-6, 71339-3 ####[facility] LABIA [id number] [place] [address] [place] Potassium [Moles/Vol] 4.6 mmol/L Normal 3.7-5.1 [facility] Comment on above: Order Comment: Speci men Type: BLOOD SPECIMENOrdering Facility: [facility] Address: [address] Performed By: #### 3 3762-6, 44496-3 ####[facility] LABIA [id number] [place] [address] [place] Sodium [Moles/Vol] 135 mmol/L Low 136-144 [facility] Comment on above: Order Comment: Speci men Type: BLOOD SPECIMENOrdering Facility: [facility] Address: [address] [place] [address] Performed By: #### 3 3762-6, 51801-9 ####[facility] LABCLIA [id number] [place] [address] [place] Urea nitrogen [Mass/Vol] 77 mg/dL High 9-24 [facility] Comment on above: Order Comment: Speci men Type: BLOOD SPECIMENOrdering Facility: [facility] Address: [address] [place] [address] Performed By: #### 3 3762-6, 91812-8 ####[facility] LABCLIA [id number] [place] [address] [place] CNCNPATEDon 04-26-2023 CNCNPATED Normal [facility] CNOVon 04-26-2023 CNOV Normal [facility] NT PRO BNPon 04-26-2023 Natriuretic peptide.B prohormone N-Terminal [Mass/Vol] 6843 pg/mL High <125 pg/mL [facility] NT-proBNP SerPl-mCncon 04-26 Natriuretic peptide.B prohormone N-Terminal [Mass/Vol] 6843 pg/mL High <125 [facility] Comment on above: Order Comment: Speci men Type: BLOOD SPECIMENOrdering Facility: [facility] Address: [address] [place] [address] Performed By: #### 3 3762-6, 79155-5 ####[facility] LABIA [id number] [place] [address] [place] CNPNon 04-19-2023 CNPN Normal [facility] CNPNon 04-14-2023 CNPN Normal [facility] CNPTOUTREACHon 04-14-2023 CNPTOUTREACH Normal [facility] CASE MANAGEMon 04-13-2023 CASE MANAGEM Normal [facility] CBC panel Auto (Bld)on 04-13 Erythrocyte distribution width (RBC) [Ratio] 19.7 % High 11.5-15.0 [facility] Comment on above: Order Comment: Speci men Type: BLOOD SPECIMENOrdering Facility: [facility] Address: [address] Performed By: #### 5 8410-2 ####[facility] LABIA [id number] [address] [place] Hematocrit (Bld) [Volume fraction] 33.9 % Low 39.0-51.0 [facility] Comment on above: Order Comment: Speci men Type: BLOOD SPECIMENOrdering Facility: [facility] Address: [address] Performed By: #### 5 8410-2 ####[facility] [id number] [place] [address] [place] Hemoglobin (Bld) [Mass/Vol] 10.4 g/dL Low 13.0-17.0 [facility] Comment on above: Order Comment: Speci men Type: BLOOD SPECIMENOrdering Facility: [facility] Address: [address] [place], [place] [address] Performed By: #### 5 8410-2 ####[facility] [id number] [place] [address] [place] MCH (RBC) [Entitic mass] 24.0 pg Low 26.0-34.0 [facility] Comment on above: Order Comment: Speci men Type: BLOOD SPECIMENOrdering Facility: [facility] Address: [address] Performed By: #### 5 8410-2 ####[facility] LABIA [id number] [address] [place] MCHC (RBC) [Mass/Vol] 30.7 g/dL Normal 30.5-36.0 [facility] Comment on above: Order Comment: Speci men Type: BLOOD SPECIMENOrdering Facility: [facility] Address: [address] [place], [place] [address] Performed By: #### 5 8410-2 ####[facility] LABIA [id number] [place] [address] [place] MCV (RBC) [Entitic vol] 78.1 fL Low 80.0-100.0 [facility] Comment on above: Order Comment: Speci men Type: BLOOD SPECIMENOrdering Facility: [facility] Address: [address] [place], [place] [address] Performed By: #### 5 8410-2 ####[facility] LABIA [id number] [place] [address] [place] Nucleated RBC (Bld) [#/Vol] 10*3/uL Normal <0.01 [facility] Comment on above: Order Comment: Speci men Type: BLOOD SPECIMENOrdering Facility: [facility] Address: [address] [place], [place] [address] Performed By: #### 5 8410-2 ####[facility] [id number] [place] [address] [place] Platelet mean volume (Bld) [Entitic vol] 10.2 fL Normal 9.0-12.7 [facility] Comment on above: Order Comment: Speci men Type: BLOOD SPECIMENOrdering Facility: [facility] Address: [address] [place], [place] [address] Performed By: #### 5 8410-2 ####[facility] LABIA [id number] [place] [address] [place] Platelets (Bld) [#/Vol] 242 10*3/uL Normal 150-400 [facility] Comment on above: Order Comment: Speci men Type: BLOOD SPECIMENOrdering Facility: [facility] Address: [address] [place], [place] [address] Performed By: #### 5 8410-2 ####[facility] LABIA [id number] [place] [address] [place] RBC (Bld) [#/Vol] 4.34 10*6/uL Normal 4.20-6.00 [facility] Comment on above: Order Comment: Speci men Type: BLOOD SPECIMENOrdering Facility: [facility] Address: [address] [place], [place] [address] Performed By: #### 5 8410-2 ####[facility] LABCLIA [id number] [place] [address] [place] WBC (Bld) [#/Vol] 6.71 10*3/uL Normal 3.70-11.00 [facility] Comment on above: Order Comment: Speci men Type: BLOOD SPECIMENOrdering Facility: [facility] Address: [address] [place], [place] [address] Performed By: #### 5 8410-2 ####[facility] LABCLIA [id number] [place] [address] [place] CNDSon 04-13-2023 CNDS Normal [facility] Comprehensive metabolic 2000 panelon 04-13-2023 Albumin [Mass/Vol] 3.2 g/dL Low 3.9-4.9 [facility] Comment on above: Order Comment: Speci men Type: BLOOD SPECIMENOrdering Facility: [facility] Address: [address] [place], [place] [address] Performed By: #### 2 4323-8, ####[facility] LABCLIA [id number] [place] [address] [place] ALP [Catalytic activity/Vol] 162 U/L High 38-113 [facility] Comment on above: Order Comment: Speci men Type: BLOOD SPECIMENOrdering Facility: [facility] Address: [address] [place], [place] [address] Performed By: #### 2 4323-8, ####[facility] LABCLIA [id number] [place] [address] [place] ALT [Catalytic activity/Vol] 45 U/L Normal 10-54 [facility] Comment on above: Order Comment: Speci men Type: BLOOD SPECIMENOrdering Facility: [facility] Address: [address] Performed By: #### 2 4328, ####[facility] LABCLIA [id number] [place] [address] [place] Anion gap [Moles/Vol] 13 mmol/L Normal 9-18 [facility] Comment on above: Order Comment: Speci men Type: BLOOD SPECIMENOrdering Facility: [facility] Address: [address] [place] [address] Performed By: #### 2 4328, ####[facility] LABCLIA [id number] [place] [address] [place] AST [Catalytic activity/Vol] 42 U/L High 14-40 [facility] Comment on above: Order Comment: Speci men Type: BLOOD SPECIMENOrdering Facility: [facility] Address: [address] [place] [address] Performed By: #### 2 8, ####[facility] LABCLIA [id number] [place] [address] [place] Bilirubin [Mass/Vol] 0.9 mg/dL Normal 0.2-1.3 [facility] Comment on above: Order Comment: Speci men Type: BLOOD SPECIMENOrdering Facility: [facility] Address: [address] [place], [place] [address] Performed By: #### 2 4323-8, ####[facility] LABCLIA [id number] [place] [address] [place] Calcium [Mass/Vol] 8.7 mg/dL Normal 8.5-10.2 [facility] Comment on above: Order Comment: Speci men Type: BLOOD SPECIMENOrdering Facility: [facility] Address: [address] Performed By: #### 2 4323-8, ####[facility] LABCLIA [id number] [place] [address] [place] Chloride [Moles/Vol] 94 mmol/L Low 97-105 [facility] Comment on above: Order Comment: Speci men Type: BLOOD SPECIMENOrdering Facility: [facility] Address: [address] [place] [address] Performed By: #### 2 4323-8, ####[facility] LABCLIA [id number] [place] [address] [place] CO2 [Moles/Vol] 25 mmol/L Normal 22-30 [facility] Comment on above: Order Comment: Speci men Type: BLOOD SPECIMENOrdering Facility: [facility] Address: [address] [place] [address] Performed By: #### 2 4323-8, ####[facility] LABCLIA [id number] [place] [address] [place] Creatinine [Mass/Vol] 2.43 mg/dL High 0.73-1.22 [facility] Comment on above: Order Comment: Speci men Type: BLOOD SPECIMENOrdering Facility: [facility] Address: [address] [place], [place] [address] Performed By: #### 2 4323-8, ####[facility] LABIA [id number] [place] [address] [place] Creatinine and Glomerular filtration rate.predicted panel (S/P/Bld) 29 mL/min/1.73m??? Low >=60 [facility] Comment on above: Order Comment: Speci men Type: BLOOD SPECIMENOrdering Facility: [facility] Address: [address] [place], [place] [address] Result Comment: Syl mated Glomerular Filtration Rate [...] actual GFR. Performed By: #### 2 4323-8, ####[facility] LABCLIA [id number] [place] [address] [place] Glucose [Mass/Vol] 108 mg/dL High 74-99 [facility] Comment on above: Order Comment: Joseline clemons Type: BLOOD SPECIMENOrdering Facility: [facility] Address: [address] [place] [address] Result Comment: The [place] [employer] (ADA) provides guidance for cutoff [...] Standards of Medical Care in Diabetes 2016, [place] [employer]. Diabetes Care. 2016.39(Suppl 1). Performed By: #### 2 4323-8, ####[facility] LABIA [id number] [place] [address] [place] Potassium [Moles/Vol] 5.0 mmol/L Normal 3.7-5.1 [facility] Comment on above: Order Comment: Joseline clemons Type: BLOOD SPECIMENOrdering Facility: [facility] Address: [address] [address] Performed By: #### 2 4323-8, ####[facility] LABCLIA [id number] [place] [address] [place] Protein [Mass/Vol] 6.0 g/dL Low 6.3-8.0 [facility] Comment on above: Order Comment: Speci men Type: BLOOD SPECIMENOrdering Facility: [facility] Address: [address] [place] [address] Performed By: #### 2 4323-8, 57510-2 ####[facility] LABCLIA [id number] [place] [address] [place] Sodium [Moles/Vol] 132 mmol/L Low 136-144 [facility] Comment on above: Order Comment: Speci men Type: BLOOD SPECIMENOrdering Facility: [facility] Address: [address] [place] [address] Performed By: #### 2 4323-8, 95059-8 ####[facility] LABCLIA [id number] [place] [address] [place] Urea nitrogen [Mass/Vol] 62 mg/dL High 9-24 [facility] Comment on above: Order Comment: Speci men Type: BLOOD SPECIMENOrdering Facility: [facility] Address: [address] [place] [address] Performed By: #### 2 4323-8, 52239-8 ####[facility] LABCLIA [id number] [place] [address] [place] Magnesium SerPl-mCncon 04-13 Magnesium [Mass/Vol] 2.6 mg/dL High 1.7-2.3 [facility] Comment on above: Order Comment: Speci men Type: BLOOD SPECIMENOrdering Facility: [facility] Address: [address] [place], [place] [address] Performed By: #### 2 4323-8, 04875-2 ####[facility] LABCLIA [id number] [address] [place] [id number] [place] NUTRITIONon 04-13-2023 NUTRITION Normal [facility] CBC panel Auto (Bld)on 04-12 Erythrocyte distribution width (RBC) [Ratio] 19.9 % High 11.5-15.0 [facility] Comment on above: Order Comment: Speci men Type: BLOOD SPECIMENOrdering Facility: [facility] Address: [address] [place] [address] Performed By: #### 5 8410-2 ####[facility] [id number] [address] Hematocrit (Bld) [Volume fraction] 38.2 % Low 39.0-51.0 [facility] Comment on above: Order Comment: Speci men Type: BLOOD SPECIMENOrdering Facility: [facility] Address: [address] [place] [address] Performed By: #### 5 8410-2 ####[facility] [id number] [address] [place] [facility] Hemoglobin (Bld) [Mass/Vol] 11.6 g/dL Low 13.0-17.0 [facility] Comment on above: Order Comment: Speci men Type: BLOOD SPECIMENOrdering Facility: [facility] Address: [address] [place] [address] Performed By: #### 5 8410-2 ####[facility] [id number] [place] [address] [place] MCH (RBC) [Entitic mass] 24.0 pg Low 26.0-34.0 [facility] Comment on above: Order Comment: Speci men Type: BLOOD SPECIMENOrdering Facility: [facility] Address: [address] [place] [address] Performed By: #### 5 8410-2 ####[facility] LABIA [id number] [address] [place] MCHC (RBC) [Mass/Vol] 30.4 g/dL Low 30.5-36.0 [facility] Comment on above: Order Comment: Speci men Type: BLOOD SPECIMENOrdering Facility: [facility] Address: [address] Performed By: #### 5 8410-2 ####[facility] LABIA [id number] [address] [place] MCV (RBC) [Entitic vol] 79.1 fL Low 80.0-100.0 [facility] Comment on above: Order Comment: Speci men Type: BLOOD SPECIMENOrdering Facility: [facility] Address: [address] [place], [place] [address] Performed By: #### 5 8410-2 ####[facility] LABIA [id number] [place] [address] [place] Nucleated RBC (Bld) [#/Vol] 10*3/uL Normal <0.01 [facility] Comment on above: Order Comment: Speci men Type: BLOOD SPECIMENOrdering Facility: [facility] Address: [address] [place], [place] [address] Performed By: #### 5 8410-2 ####[facility] LABIA [id number] [place] [address] [place] Platelet mean volume (Bld) [Entitic vol] 9.8 fL Normal 9.0-12.7 [facility] Comment on above: Order Comment: Speci men Type: BLOOD SPECIMENOrdering Facility: [facility] Address: [address] Performed By: #### 5 8410-2 ####[facility] LABIA [id number] [place] [address] [place] Platelets (Bld) [#/Vol] 289 10*3/uL Normal 150-400 [facility] Comment on above: Order Comment: Speci men Type: BLOOD SPECIMENOrdering Facility: [facility] Address: [address] [place] [address] Performed By: #### 5 8410-2 ####[facility] LABIA [id number] [place] [address] [place] RBC (Bld) [#/Vol] 4.83 10*6/uL Normal 4.20-6.00 [facility] Comment on above: Order Comment: Speci men Type: BLOOD SPECIMENOrdering Facility: [facility] Address: [address] [place] [address] Performed By: #### 5 8410-2 ####[facility] [id number] [place] [address] [place] WBC (Bld) [#/Vol] 7.66 10*3/uL Normal 3.70-11.00 [facility] Comment on above: Order Comment: Speci men Type: BLOOD SPECIMENOrdering Facility: [facility] Address: [address] [place] [address] Performed By: #### 5 8410-2 ####[facility] [id number] [place] [address] [place] CONSULT PROGon 04-12-2023 CONSULT PROG Normal [facility] Comprehensive metabolic 2000 panelon 04-12-2023 Albumin [Mass/Vol] 3.9 g/dL Normal 3.9-4.9 [facility] Comment on above: Order Comment: Speci men Type: BLOOD SPECIMENOrdering Facility: [facility] Address: [address] [place] [address] Performed By: #### 2 4323-8, 43539-6 ####[facility] [id number] [place] [address] [place] ALP [Catalytic activity/Vol] 187 U/L High 38-113 [facility] Comment on above: Order Comment: Speci men Type: BLOOD SPECIMENOrdering Facility: [facility] Address: [address] [place], [place] [address] Performed By: #### 2 432-8, ####[facility] LABCLIA [id number] [address] [place] ALT [Catalytic activity/Vol] 52 U/L Normal 10-54 [facility] Comment on above: Order Comment: Speci men Type: BLOOD SPECIMENOrdering Facility: [facility] Address: [address] Performed By: #### 2 8, ####[facility] LABCLIA [id number] [place] [address] [place] Anion gap [Moles/Vol] 16 mmol/L Normal 9-18 [facility] Comment on above: Order Comment: Speci men Type: BLOOD SPECIMENOrdering Facility: [facility] Address: [address] [place] [address] Performed By: #### 2 4323-03, ####[facility] LABCLIA [id number] [address] [place] AST [Catalytic activity/Vol] 55 U/L High 14-40 [facility] Comment on above: Order Comment: Speci men Type: BLOOD SPECIMENOrdering Facility: [facility] Address: [address] [place], [place] [address] Performed By: #### 2 4323-03, ####[facility] LABCLIA [id number] [place] [address] [place] Bilirubin [Mass/Vol] 1.1 mg/dL Normal 0.2-1.3 [facility] Comment on above: Order Comment: Speci men Type: BLOOD SPECIMENOrdering Facility: [facility] Address: [address] [place], [place] [address] Performed By: #### 2 8, ####[facility] LABCLIA [id number] [place] [address] [place] Calcium [Mass/Vol] 9.6 mg/dL Normal 8.5-10.2 [facility] Comment on above: Order Comment: Speci men Type: BLOOD SPECIMENOrdering Facility: [facility] Address: [address] [place] [address] Performed By: #### 2 4328, ####[facility] LABCLIA [id number] [place] [address] [place] Chloride [Moles/Vol] 92 mmol/L Low 97-105 [facility] Comment on above: Order Comment: Speci men Type: BLOOD SPECIMENOrdering Facility: [facility] Address: [address] [place] [address] Performed By: #### 2 4323-03, ####[facility] LABCLIA [id number] [place] [address] [place] CO2 [Moles/Vol] 24 mmol/L Normal 22-30 [facility] Comment on above: Order Comment: Speci men Type: BLOOD SPECIMENOrdering Facility: [facility] Address: [address] [place], [place] [address] Performed By: #### 2 8, ####[facility] LABCLIA [id number] [place] [address] [place] Creatinine [Mass/Vol] 2.42 mg/dL High 0.73-1.22 [facility] Comment on above: Order Comment: Speci men Type: BLOOD SPECIMENOrdering Facility: [facility] Address: [address] [place], [place] [address] Performed By: #### 2 4328, ####[facility] LABCLIA [id number] [place] [address] [place] Creatinine and Glomerular filtration rate.predicted panel (S/P/Bld) 29 mL/min/1.73m??? Low >=60 [facility] Comment on above: Order Comment: Joseline clemons Type: BLOOD SPECIMENOrdering Facility: [facility] Address: [address] [place] [address] Result Comment: Syl mated Glomerular Filtration Rate [...] actual GFR. Performed By: #### 2 4323-8, ####[facility] LABCLIA [id number] [place] [address] [place] Glucose [Mass/Vol] 139 mg/dL High 74-99 [facility] Comment on above: Order Comment: Joseline clemons Type: BLOOD SPECIMENOrdering Facility: [facility] Address: [address] [place], [place] [address] Result Comment: The [place] [employer] (ADA) provides guidance for cutoff [...] Standards of Medical Care in Diabetes 2016, [place] [employer]. Diabetes Care. 2016.39(Suppl 1). Performed By: #### 2 4323-8, ####[facility] LABIA [id number] [place] [id number] [place] Potassium [Moles/Vol] 5.0 mmol/L Normal 3.7-5.1 [facility] Comment on above: Order Comment: Speci men Type: BLOOD SPECIMENOrdering Facility: [facility] Address: [address] Performed By: #### 2 8, ####[facility] LABCLIA [id number] [place] [address] [place] Protein [Mass/Vol] 7.1 g/dL Normal 6.3-8.0 [facility] Comment on above: Order Comment: Speci men Type: BLOOD SPECIMENOrdering Facility: [facility] Address: [address] [place] [address] Performed By: #### 2 8, ####[facility] LABCLIA [id number] [place] [address] [place] Sodium [Moles/Vol] 132 mmol/L Low 136-144 [facility] Comment on above: Order Comment: Speci men Type: BLOOD SPECIMENOrdering Facility: [facility] Address: [address] [place] [address] Performed By: #### 2 8, ####[facility] LABCLIA [id number] [place] [address] [place] Urea nitrogen [Mass/Vol] 65 mg/dL High 9-24 [facility] Comment on above: Order Comment: Speci men Type: BLOOD SPECIMENOrdering Facility: [facility] Address: [address] Performed By: #### 2 8, ####[facility] LABCLIA [id number] [place] [address] [place] Magnesium SerPl-mCncon 04-12 Magnesium [Mass/Vol] 2.9 mg/dL High 1.7-2.3 [facility] Comment on above: Order Comment: Speci men Type: BLOOD SPECIMENOrdering Facility: [facility] Address: [address] [place] [address] Performed By: #### 2 4323-8, 55367-8 ####[facility] LABCLIA [id number] [place] [address] [place] NURSING PROGon 04-12-2023 NURSING PROG Normal [facility] CASE MANAGEMon 04-11-2023 CASE MANAGEM Normal [facility] CBC panel Auto (Bld)on 04-11 Erythrocyte distribution width (RBC) [Ratio] 19.9 % High 11.5-15.0 [facility] Comment on above: Order Comment: Speci men Type: BLOOD SPECIMENOrdering Facility: [facility] Address: [address] [place] [address] Performed By: #### 5 8410-2 ####[facility] LABIA [id number] [place] [address] [place] Hematocrit (Bld) [Volume fraction] 37.9 % Low 39.0-51.0 [facility] Comment on above: Order Comment: Speci men Type: BLOOD SPECIMENOrdering Facility: [facility] Address: [address] [place] [address] Performed By: #### 5 8410-2 ####[facility] LABCLIA [id number] [place] [address] [place] Hemoglobin (Bld) [Mass/Vol] 11.5 g/dL Low 13.0-17.0 [facility] Comment on above: Order Comment: Speci men Type: BLOOD SPECIMENOrdering Facility: [facility] Address: [address] [place] [address] Performed By: #### 5 8410-2 ####[facility] LABCLIA [id number] [place] [address] [place] MCH (RBC) [Entitic mass] 23.9 pg Low 26.0-34.0 [facility] Comment on above: Order Comment: Speci men Type: BLOOD SPECIMENOrdering Facility: [facility] Address: [address] Performed By: #### 5 8410-2 ####[facility] LABIA [id number] [place] [address] [place] MCHC (RBC) [Mass/Vol] 30.3 g/dL Low 30.5-36.0 [facility] Comment on above: Order Comment: Speci men Type: BLOOD SPECIMENOrdering Facility: [facility] Address: [address] Performed By: #### 5 8410-2 ####[facility] LABIA [id number] [place] [address] [place] MCV (RBC) [Entitic vol] 78.8 fL Low 80.0-100.0 [facility] Comment on above: Order Comment: Speci men Type: BLOOD SPECIMENOrdering Facility: [facility] Address: [address] Performed By: #### 5 8410-2 ####[facility] LABIA [id number] [place] [address] [place] Nucleated RBC (Bld) [#/Vol] 10*3/uL Normal <0.01 [facility] Comment on above: Order Comment: Speci men Type: BLOOD SPECIMENOrdering Facility: [facility] Address: [address] Performed By: #### 5 8410-2 ####[facility] LABIA [id number] [place] [address] [place] Platelet mean volume (Bld) [Entitic vol] 10.1 fL Normal 9.0-12.7 [facility] Comment on above: Order Comment: Speci men Type: BLOOD SPECIMENOrdering Facility: [facility] Address: [address] [place], [place] [address] Performed By: #### 5 8410-2 ####[facility] LABCLIA [id number] [place] [address] [place] Platelets (Bld) [#/Vol] 320 10*3/uL Normal 150-400 [facility] Comment on above: Order Comment: Speci men Type: BLOOD SPECIMENOrdering Facility: [facility] Address: [address] [place] [address] Performed By: #### 5 8410-2 ####[facility] LABIA [id number] [place] [address] [place] RBC (Bld) [#/Vol] 4.81 10*6/uL Normal 4.20-6.00 [facility] Comment on above: Order Comment: Speci men Type: BLOOD SPECIMENOrdering Facility: [facility] Address: [address] [place] [address] Performed By: #### 5 8410-2 ####[facility] LABIA [id number] [place] [address] [place] WBC (Bld) [#/Vol] 7.97 10*3/uL Normal 3.70-11.00 [facility] Comment on above: Order Comment: Speci men Type: BLOOD SPECIMENOrdering Facility: [facility] Address: [address] [place], [place] [address] Performed By: #### 5 8410-2 ####[facility] LABIA [id number] [place] [address] [facility] [place] Comprehensive metabolic 2000 panelon 04-11-2023 Albumin [Mass/Vol] 3.7 g/dL Low 3.9-4.9 [facility] Comment on above: Order Comment: Speci men Type: BLOOD SPECIMENOrdering Facility: [facility] Address: [address] [place] [address] Performed By: #### 1 9123-9, 09738-9 ####[facility] LABCLIA [id number] [place] [address] [place] ALP [Catalytic activity/Vol] 173 U/L High 38-113 [facility] Comment on above: Order Comment: Speci men Type: BLOOD SPECIMENOrdering Facility: [facility] Address: [address] [place] [address] Performed By: #### 1 9123-9, 93014-9 ####[facility] LABCLIA [id number] [place] [address] [place] ALT [Catalytic activity/Vol] 36 U/L Normal 10-54 [facility] Comment on above: Order Comment: Speci men Type: BLOOD SPECIMENOrdering Facility: [facility] Address: [address] [place] [address] Performed By: #### 1 9123-9, 29414-5 ####[facility] LABCLIA [id number] [place] [address] [place] Anion gap [Moles/Vol] 13 mmol/L Normal 9-18 [facility] Comment on above: Order Comment: Speci men Type: BLOOD SPECIMENOrdering Facility: [facility] Address: [address] [place] [address] Performed By: #### 1 9123-9, 59749-0 ####[facility] LABCLIA [id number] [place] [address] [place] AST [Catalytic activity/Vol] 36 U/L Normal 14-40 [facility] Comment on above: Order Comment: Speci men Type: BLOOD SPECIMENOrdering Facility: [facility] Address: [address] [place], [place] [address] Performed By: #### 1 9123-9, 85911-3 ####[facility] LABCLIA [id number] [place] [address] [place] Bilirubin [Mass/Vol] 1.0 mg/dL Normal 0.2-1.3 [facility] Comment on above: Order Comment: Speci men Type: BLOOD SPECIMENOrdering Facility: [facility] Address: [address] [place], [place] [address] Performed By: #### 1 23-9, ####[facility] LABCLIA [id number] [place] [address] [place] Calcium [Mass/Vol] 9.4 mg/dL Normal 8.5-10.2 [facility] Comment on above: Order Comment: Speci men Type: BLOOD SPECIMENOrdering Facility: [facility] Address: [address] [place], [place] [address] Performed By: #### 1 9123-9, ####[facility] LABCLIA [id number] [place] [address] [place] Chloride [Moles/Vol] 90 mmol/L Low 97-105 [facility] Comment on above: Order Comment: Speci men Type: BLOOD SPECIMENOrdering Facility: [facility] Address: [address] [place], [place] [address] Performed By: #### 1 9, ####[facility] LABCLIA [id number] [place] [address] [place] CO2 [Moles/Vol] 27 mmol/L Normal 22-30 [facility] Comment on above: Order Comment: Speci men Type: BLOOD SPECIMENOrdering Facility: [facility] Address: [address] [place], [place] [address] Performed By: #### 1 9123-9, ####[facility] LABCLIA [id number] [place] [address] [place] Creatinine [Mass/Vol] 2.27 mg/dL High 0.73-1.22 [facility] Comment on above: Order Comment: Speci men Type: BLOOD SPECIMENOrdering Facility: [facility] Address: [address] [place] [id number] Performed By: #### 1 9123-9, 63881-1 ####[facility] LABIA [id number] [address] Creatinine and Glomerular filtration rate.predicted panel (S/P/Bld) 31 mL/min/1.73m??? Low >=60 [facility] Comment on above: Order Comment: Joseline clemons Type: BLOOD SPECIMENOrdering Facility: [facility] Address: [address] [place] [address] Result Comment: Syl mated Glomerular Filtration Rate [...] actual GFR. Performed By: #### 1 9123-9, 79745-8 ####[facility] LABIA [id number] [place] [address] [place] Glucose [Mass/Vol] 152 mg/dL High 74-99 [facility] Comment on above: Order Comment: Joseline clemons Type: BLOOD SPECIMENOrdering Facility: [facility] Address: [address] [place] [address] Result Comment: The [place] [employer] (ADA) provides guidance for cutoff [...] Standards of Medical Care in Diabetes 2016, [place] [employer]. Diabetes Care. 2016.39(Suppl 1). Performed By: #### 1 9, ####[facility] LABCLIA [id number] [place] [address] [place] Potassium [Moles/Vol] 4.7 mmol/L Normal 3.7-5.1 [facility] Comment on above: Order Comment: Speci men Type: BLOOD SPECIMENOrdering Facility: [facility] Address: [address] Performed By: #### 1 9, ####[facility] LABIA [id number] [place] [address] [place] Protein [Mass/Vol] 6.8 g/dL Normal 6.3-8.0 [facility] Comment on above: Order Comment: Speci men Type: BLOOD SPECIMENOrdering Facility: [facility] Address: [address] [place] [address] Performed By: #### 1 9123-04, ####[facility] LABIA [id number] [place] [address] [place] Sodium [Moles/Vol] 130 mmol/L Low 136-144 [facility] Comment on above: Order Comment: Speci men Type: BLOOD SPECIMENOrdering Facility: [facility] Address: [address] Performed By: #### 1 239, ####[facility] LABCLIA [id number] [place] [address] [place] Urea nitrogen [Mass/Vol] 61 mg/dL High 9-24 [facility] Comment on above: Order Comment: Speci men Type: BLOOD SPECIMENOrdering Facility: [facility] Address: [address] Performed By: #### 1 239, ####[facility] LABCLIA [id number] [place] [address] [place] Magnesium SerPl-mCncon 04-11 Magnesium [Mass/Vol] 2.7 mg/dL High 1.7-2.3 [facility] Comment on above: Order Comment: Speci men Type: BLOOD SPECIMENOrdering Facility: [facility] Address: [address] [place] [address] Performed By: #### 1 9123-9, 48086-0 ####[facility] LABIA [id number] [place] [address] [place] CBC panel Auto (Bld)on 04-10 Erythrocyte distribution width (RBC) [Ratio] 19.6 % High 11.5-15.0 [facility] Comment on above: Order Comment: Speci men Type: BLOOD SPECIMENOrdering Facility: [facility] Address: [address] [place] [address] Performed By: #### 5 8410-2 ####[facility] LABIA [id number] [address] [place] Hematocrit (Bld) [Volume fraction] 35.1 % Low 39.0-51.0 [facility] Comment on above: Order Comment: Speci men Type: BLOOD SPECIMENOrdering Facility: [facility] Address: [address] [place] [address] Performed By: #### 5 8410-2 ####[facility] LABIA [id number] [address] [place] Hemoglobin (Bld) [Mass/Vol] 11.1 g/dL Low 13.0-17.0 [facility] Comment on above: Order Comment: Speci men Type: BLOOD SPECIMENOrdering Facility: [facility] Address: [address] [place] [address] Performed By: #### 5 8410-2 ####[facility] LABIA [id number] [place] [address] MCH (RBC) [Entitic mass] 24.6 pg Low 26.0-34.0 [facility] Comment on above: Order Comment: Speci men Type: BLOOD SPECIMENOrdering Facility: [facility] Address: [address] [place] [address] Performed By: #### 5 8410-2 ####[facility] LABCLIA [id number] [address] STATES OF [facility] MCHC (RBC) [Mass/Vol] 31.6 g/dL Normal 30.5-36.0 [facility] Comment on above: Order Comment: Speci men Type: BLOOD SPECIMENOrdering Facility: [facility] Address: [address] [place] [address] Performed By: #### 5 8410-2 ####[facility] LABCLIA [id number] [address] [place] MCV (RBC) [Entitic vol] 77.7 fL Low 80.0-100.0 [facility] Comment on above: Order Comment: Speci men Type: BLOOD SPECIMENOrdering Facility: [facility] Address: [address] [place] [address] Performed By: #### 5 8410-2 ####[facility] LABCLIA [id number] [address] [place] Nucleated RBC (Bld) [#/Vol] 10*3/uL Normal <0.01 [facility] Comment on above: Order Comment: Speci men Type: BLOOD SPECIMENOrdering Facility: [facility] Address: [address] [place] [address] Performed By: #### 5 8410-2 ####[facility] LABCLIA [id number] [address] [place] Platelet mean volume (Bld) [Entitic vol] 10.6 fL Normal 9.0-12.7 [facility] Comment on above: Order Comment: Speci men Type: BLOOD SPECIMENOrdering Facility: [facility] Address: [address] [place], [place] [address] Performed By: #### 5 8410-2 ####[facility] LABCLIA [id number] [place] [address] [place] Platelets (Bld) [#/Vol] 311 10*3/uL Normal 150-400 [facility] Comment on above: Order Comment: Speci men Type: BLOOD SPECIMENOrdering Facility: [facility] Address: [address] [place], [place] [address] Performed By: #### 5 8410-2 ####[facility] LABIA [id number] [place] [address] [place] [facility] RBC (Bld) [#/Vol] 4.52 10*6/uL Normal 4.20-6.00 [facility] Comment on above: Order Comment: Speci men Type: BLOOD SPECIMENOrdering Facility: [facility] Address: [address] [place], [place] [address] Performed By: #### 5 8410-2 ####[facility] LABIA [id number] [place] [address] [place] WBC (Bld) [#/Vol] 7.69 10*3/uL Normal 3.70-11.00 [facility] Comment on above: Order Comment: Speci men Type: BLOOD SPECIMENOrdering Facility: [facility] Address: [address] [place], [place] [address] Performed By: #### 5 8410-2 ####[facility] LABIA [id number] [place] [address] [place] Comprehensive metabolic 2000 panelon 04-10-2023 Albumin [Mass/Vol] 3.2 g/dL Low 3.9-4.9 [facility] Comment on above: Order Comment: Speci men Type: BLOOD SPECIMENOrdering Facility: [facility] Address: [address] [place] [address] Performed By: #### 2 4323-8, 89911-9, 03071-5 ####[facility] LABCLIA [id number] [place] [address] [place] ALP [Catalytic activity/Vol] 164 U/L High 38-113 [facility] Comment on above: Order Comment: Speci men Type: BLOOD SPECIMENOrdering Facility: [facility] Address: [address] [place] [address] Performed By: #### 2 4323-8, 48152-9, 46576-3 ####[facility] LABCLIA [id number] [place] [address] [place] ALT [Catalytic activity/Vol] 34 U/L Normal 10-54 [facility] Comment on above: Order Comment: Speci men Type: BLOOD SPECIMENOrdering Facility: [facility] Address: [address] [place] [address] Performed By: #### 2 4323-8, 95754-1, 43173-1 ####[facility] LABIA [id number] [place] [address] [place] Anion gap [Moles/Vol] 13 mmol/L Normal 9-18 [facility] Comment on above: Order Comment: Speci men Type: BLOOD SPECIMENOrdering Facility: [facility] Address: [address] [place] [address] Performed By: #### 2 4323-8, 35046-5, 72601-1 ####[facility] LABCLIA [id number] [place] [address] [place] AST [Catalytic activity/Vol] 30 U/L Normal 14-40 [facility] Comment on above: Order Comment: Speci men Type: BLOOD SPECIMENOrdering Facility: [facility] Address: [address] [place] [address] Performed By: #### 2 4323-8, 08782-5, 60633-1 ####[facility] LABCLIA [id number] [place] [address] [place] Bilirubin [Mass/Vol] 0.9 mg/dL Normal 0.2-1.3 [facility] Comment on above: Order Comment: Speci men Type: BLOOD SPECIMENOrdering Facility: [facility] Address: [address] [place] [address] Performed By: #### 2 4323-8, , 89127-1 ####[facility] LABCLIA [id number] [place] [address] [place] Calcium [Mass/Vol] 9.2 mg/dL Normal 8.5-10.2 [facility] Comment on above: Order Comment: Speci men Type: BLOOD SPECIMENOrdering Facility: [facility] Address: [address] [place] [address] Performed By: #### 2 4323-8, , 57589-5 ####[facility] LABCLIA [id number] [place] [address] [place] Chloride [Moles/Vol] 90 mmol/L Low 97-105 [facility] Comment on above: Order Comment: Speci men Type: BLOOD SPECIMENOrdering Facility: [facility] Address: [address] [place], [place] [address] Performed By: #### 2 4323-8, , 05469-2 ####[facility] LABCLIA [id number] [place] [address] [place] CO2 [Moles/Vol] 25 mmol/L Normal 22-30 [facility] Comment on above: Order Comment: Speci men Type: BLOOD SPECIMENOrdering Facility: [facility] Address: [address] Performed By: #### 2 4323-8, 82664-9, 86981-9 ####[facility] LABCLIA [id number] [place] [address] [place] Creatinine [Mass/Vol] 2.40 mg/dL High 0.73-1.22 [facility] Comment on above: Order Comment: Joseline clemons Type: BLOOD SPECIMENOrdering Facility: [facility] Address: [address] [place] [address] Performed By: #### 2 4323-8, 16506-4, 24462-1 ####[facility] LABIA [id number] [place] [address] [place] Creatinine and Glomerular filtration rate.predicted panel (S/P/Bld) 29 mL/min/1.73m??? Low >=60 [facility] Comment on above: Order Comment: Joseline clemons Type: BLOOD SPECIMENOrdering Facility: [facility] Address: [address] [place] [address] Result Comment: Syl mated Glomerular Filtration Rate [...] actual GFR. Performed By: #### 2 4323-8, 08245-6, 90427-5 ####[facility] LABIA [id number] [place] [address] [place] Glucose [Mass/Vol] 145 mg/dL High 74-99 [facility] Comment on above: Order Comment: Joseline clemons Type: BLOOD SPECIMENOrdering Facility: [facility] Address: [address] [address] Result Comment: The [place] [employer] (ADA) provides guidance for cutoff [...] Standards of Medical Care in Diabetes 2016, [place] [employer]. Diabetes Care. 2016.39(Suppl 1). Performed By: #### 2 4323-8, , 92266-8 ####[facility] LABCLIA [id number] [place] [address] [place] Potassium [Moles/Vol] 5.0 mmol/L Normal 3.7-5.1 [facility] Comment on above: Order Comment: Speci men Type: BLOOD SPECIMENOrdering Facility: [facility] Address: [address] [place] [address] Performed By: #### 2 4323-8, , 48562-0 ####[facility] LABCLIA [id number] [place] [address] [place] Protein [Mass/Vol] 6.3 g/dL Normal 6.3-8.0 [facility] Comment on above: Order Comment: Speci men Type: BLOOD SPECIMENOrdering Facility: [facility] Address: [address] [place] [address] Performed By: #### 2 4323-8, , 20086-9 ####[facility] LABCLIA [id number] [place] [address] [place] Sodium [Moles/Vol] 128 mmol/L Low 136-144 [facility] Comment on above: Order Comment: Speci men Type: BLOOD SPECIMENOrdering Facility: [facility] Address: [address] [place] [id number] Performed By: #### 2 4323-8, , 36514-9 ####[facility] LABCLIA [id number] [place] [address] [place] Urea nitrogen [Mass/Vol] 62 mg/dL High 9-24 [facility] Comment on above: Order Comment: Speci men Type: BLOOD SPECIMENOrdering Facility: [facility] Address: [address] [place] [address] Performed By: #### 2 4323-8, 84142-1, 73311-5 ####[facility] LABIA [id number] [place] [address] [place] Magnesium [facility] 04-10 Magnesium [Mass/Vol] 2.8 mg/dL High 1.7-2.3 [facility] Comment on above: Order Comment: Speci men Type: BLOOD SPECIMENOrdering Facility: [facility] Address: [address] [place] [address] Performed By: #### 2 4323-8, , 44854-3 ####[facility] LABIA [id number] [address] [place] NT-proBNP SerPl-ncon 04-10 Natriuretic peptide.B prohormone N-Terminal [Mass/Vol] 5066 pg/mL High <125 [facility] Comment on above: Order Comment: Speci men Type: BLOOD SPECIMENOrdering Facility: [facility] Address: [address] [place], [place] [address] Performed By: #### 2 4323-8, 95715-2, 88822-5 ####[facility] LABIA [id number] [place] [address] [place] CBC panel Auto (Bld)on 04-09 Erythrocyte distribution width (RBC) [Ratio] 19.9 % High 11.5-15.0 [facility] Comment on above: Order Comment: Speci men Type: BLOOD SPECIMENOrdering Facility: [facility] Address: [address] [place] [address] Performed By: #### 5 8410-2 ####[facility] LABIA [id number] [place] [address] [place] Hematocrit (Bld) [Volume fraction] 35.6 % Low 39.0-51.0 [facility] Comment on above: Order Comment: Speci men Type: BLOOD SPECIMENOrdering Facility: [facility] Address: [address] [place], [place] [address] Performed By: #### 5 8410-2 ####[facility] LABIA [id number] [place] [address] [place] Hemoglobin (Bld) [Mass/Vol] 11.2 g/dL Low 13.0-17.0 [facility] Comment on above: Order Comment: Speci men Type: BLOOD SPECIMENOrdering Facility: [facility] Address: [address] [place], [place] [address] Performed By: #### 5 8410-2 ####[facility] [id number] [place] [address] [place] MCH (RBC) [Entitic mass] 24.6 pg Low 26.0-34.0 [facility] Comment on above: Order Comment: Speci men Type: BLOOD SPECIMENOrdering Facility: [facility] Address: [address] [place], [place] [address] Performed By: #### 5 8410-2 ####[facility] LABIA [id number] [place] [address] [place] MCHC (RBC) [Mass/Vol] 31.5 g/dL Normal 30.5-36.0 [facility] Comment on above: Order Comment: Speci men Type: BLOOD SPECIMENOrdering Facility: [facility] Address: [address] [place] [address] Performed By: #### 5 8410-2 ####[facility] [id number] [place] [address] [place] MCV (RBC) [Entitic vol] 78.1 fL Low 80.0-100.0 [facility] Comment on above: Order Comment: Speci men Type: BLOOD SPECIMENOrdering Facility: [facility] Address: [address] [place], [place] [address] Performed By: #### 5 8410-2 ####[facility] LABIA [id number] [place] [address] [place] Nucleated RBC (Bld) [#/Vol] 10*3/uL Normal <0.01 [facility] Comment on above: Order Comment: Speci men Type: BLOOD SPECIMENOrdering Facility: [facility] Address: [address] [place], [place] [address] Performed By: #### 5 8410-2 ####[facility] LABIA [id number] [place] [address] [place] Platelet mean volume (Bld) [Entitic vol] 10.3 fL Normal 9.0-12.7 [facility] Comment on above: Order Comment: Speci men Type: BLOOD SPECIMENOrdering Facility: [facility] Address: [address] [place], [place] [address] Performed By: #### 5 8410-2 ####[facility] LABIA [id number] [place] [address] [place] Platelets (Bld) [#/Vol] 303 10*3/uL Normal 150-400 [facility] Comment on above: Order Comment: Speci men Type: BLOOD SPECIMENOrdering Facility: [facility] Address: [address] [place], [place] [address] Performed By: #### 5 8410-2 ####[facility] LABCLIA [id number] [place] [address] [place] RBC (Bld) [#/Vol] 4.56 10*6/uL Normal 4.20-6.00 [facility] Comment on above: Order Comment: Speci men Type: BLOOD SPECIMENOrdering Facility: [facility] Address: [address] [address] Performed By: #### 5 8410-2 ####[facility] LABCLIA [id number] [address] [place] WBC (Bld) [#/Vol] 9.41 10*3/uL Normal 3.70-11.00 [facility] Comment on above: Order Comment: Speci men Type: BLOOD SPECIMENOrdering Facility: [facility] Address: [address] [address] Performed By: #### 5 8410-2 ####[facility] LABIA [id number] [place] [address] [place] [facility] Comprehensive metabolic 2000 panelon 04-09-2023 Albumin [Mass/Vol] 3.4 g/dL Low 3.9-4.9 [facility] Comment on above: Order Comment: Speci men Type: BLOOD SPECIMENOrdering Facility: [facility] Address: [address] Performed By: #### 1 9123-9, 70312-4 ####[facility] LABIA [id number] [address] [place] ALP [Catalytic activity/Vol] 170 U/L High 38-113 [facility] Comment on above: Order Comment: Speci men Type: BLOOD SPECIMENOrdering Facility: [facility] Address: [address] Performed By: #### 1 9123-9, 32290-3 ####[facility] LABIA [id number] [address] [place] ALT [Catalytic activity/Vol] 30 U/L Normal 10-54 [facility] Comment on above: Order Comment: Speci men Type: BLOOD SPECIMENOrdering Facility: [facility] Address: [address] [phone] Performed By: #### 1 23-9, 80155-1 ####[facility] LABCLIA [id number] [place] [address] [place] Anion gap [Moles/Vol] 16 mmol/L Normal 9-18 [facility] Comment on above: Order Comment: Speci men Type: BLOOD SPECIMENOrdering Facility: [facility] Address: [address] Performed By: #### 1 239, ####[facility] LABCLIA [id number] [place] [address] [place] AST [Catalytic activity/Vol] 30 U/L Normal 14-40 [facility] Comment on above: Order Comment: Speci men Type: BLOOD SPECIMENOrdering Facility: [facility] Address: [address] Performed By: #### 1 239, ####[facility] LABCLIA [id number] [place] [address] [place] Bilirubin [Mass/Vol] 1.0 mg/dL Normal 0.2-1.3 [facility] Comment on above: Order Comment: Speci men Type: BLOOD SPECIMENOrdering Facility: [facility] Address: [address] Performed By: #### 1 9, ####[facility] LABCLIA [id number] [place] [address] [place] Calcium [Mass/Vol] 9.6 mg/dL Normal 8.5-10.2 [facility] Comment on above: Order Comment: Speci men Type: BLOOD SPECIMENOrdering Facility: [facility] Address: [address] Performed By: #### 1 239, 36239-0 ####[facility] LABCLIA [id number] [place] [address] [place] Chloride [Moles/Vol] 89 mmol/L Low 97-105 [facility] Comment on above: Order Comment: Speci men Type: BLOOD SPECIMENOrdering Facility: [facility] Address: [address] [place] [address] Performed By: #### 1 9123-9, 96393-5 ####[facility] LABIA [id number] [place] [address] [place] CO2 [Moles/Vol] 24 mmol/L Normal 22-30 [facility] Comment on above: Order Comment: Speci men Type: BLOOD SPECIMENOrdering Facility: [facility] Address: [address] [place] [address] Performed By: #### 1 9123-9, 18526-1 ####[facility] LABIA [id number] [place] [address] [place] Creatinine [Mass/Vol] 2.50 mg/dL High 0.73-1.22 [facility] Comment on above: Order Comment: Speci men Type: BLOOD SPECIMENOrdering Facility: [facility] Address: [address] [place] [address] Performed By: #### 1 9123-9, 33296-9 ####[facility] [id number] [address] OF [facility] Creatinine and Glomerular filtration rate.predicted panel (S/P/Bld) 28 mL/min/1.73m??? Low >=60 [facility] Comment on above: Order Comment: Speci men Type: BLOOD SPECIMENOrdering Facility: [facility] Address: [address] [place] [address] Result Comment: Syl mated Glomerular Filtration Rate [...] reflect actual GFR. Performed By: #### 1 23-9, ####[facility] LABCLIA [id number] [address] [address] [place] Glucose [Mass/Vol] 154 mg/dL High 74-99 [facility] Comment on above: Order Comment: Joseline clemons Type: BLOOD SPECIMENOrdering Facility: [facility] Address: [address] [place] [address] Result Comment: The [place] [employer] (ADA) provides guidance for cutoff [...] Standards of Medical Care in Diabetes 2016, [place] [employer]. Diabetes Care. 2016.39(Suppl 1). Performed By: #### 1 91239, ####[facility] LABCLIA [id number] [address] [address] [place] Potassium [Moles/Vol] 4.6 mmol/L Normal 3.7-5.1 [facility] Comment on above: Order Comment: Joseline clemons Type: BLOOD SPECIMENOrdering Facility: [facility] Address: [address] [place] [address] Performed By: #### 1 239, ####[facility] LABCLIA [id number] [address] [address] [place] Protein [Mass/Vol] 7.0 g/dL Normal 6.3-8.0 [facility] Comment on above: Order Comment: Speci men Type: BLOOD SPECIMENOrdering Facility: [facility] Address: [address] Performed By: #### 1 9123-9, ####[facility] LABCLIA [id number] [place] [address] [place] Sodium [Moles/Vol] 129 mmol/L Low 136-144 [facility] Comment on above: Order Comment: Speci men Type: BLOOD SPECIMENOrdering Facility: [facility] Address: [address] [place], [place] [address] Performed By: #### 1 9123-9, 54384-3 ####[facility] LABIA [id number] [place] [address] [place] Urea nitrogen [Mass/Vol] 61 mg/dL High 9-24 [facility] Comment on above: Order Comment: Speci men Type: BLOOD SPECIMENOrdering Facility: [facility] Address: [address] [place], [place] [address] Performed By: #### 1 9123-9, 95321-4 ####[facility] LABIA [id number] [place] [address] [place] Magnesium SerPl-mCncon 04-09 Magnesium [Mass/Vol] 2.6 mg/dL High 1.7-2.3 [facility] Comment on above: Order Comment: Speci men Type: BLOOD SPECIMENOrdering Facility: [facility] Address: [address] [place], [place] [address] Performed By: #### 1 9123-9, 17362-3 ####[facility] LABIA [id number] [place] [address] [place] CBC panel Auto (Bld)on 04-08 Erythrocyte distribution width (RBC) [Ratio] 19.9 % High 11.5-15.0 [facility] Comment on above: Order Comment: Speci men Type: BLOOD SPECIMENOrdering Facility: [facility] Address: [address] Performed By: #### 5 8410-2 ####[facility] LABCLIA [id number] [place] [address] [place] Hematocrit (Bld) [Volume fraction] 34.7 % Low 39.0-51.0 [facility] Comment on above: Order Comment: Speci men Type: BLOOD SPECIMENOrdering Facility: [facility] Address: [address] Performed By: #### 5 8410-2 ####[facility] LABIA [id number] [place] [address] [place] Hemoglobin (Bld) [Mass/Vol] 10.9 g/dL Low 13.0-17.0 [facility] Comment on above: Order Comment: Speci men Type: BLOOD SPECIMENOrdering Facility: [facility] Address: [address] Performed By: #### 5 8410-2 ####[facility] LABIA [id number] [place] [address] [place] MCH (RBC) [Entitic mass] 24.4 pg Low 26.0-34.0 [facility] Comment on above: Order Comment: Speci men Type: BLOOD SPECIMENOrdering Facility: [facility] Address: [address] Performed By: #### 5 8410-2 ####[facility] LABIA [id number] [place] [address] [place] MCHC (RBC) [Mass/Vol] 31.4 g/dL Normal 30.5-36.0 [facility] Comment on above: Order Comment: Speci men Type: BLOOD SPECIMENOrdering Facility: [facility] Address: [address] Performed By: #### 5 8410-2 ####[facility] LABIA [id number] [place] [address] [place] MCV (RBC) [Entitic vol] 77.8 fL Low 80.0-100.0 [facility] Comment on above: Order Comment: Speci men Type: BLOOD SPECIMENOrdering Facility: [facility] Address: [address] [place] [address] Performed By: #### 5 8410-2 ####[facility] LABIA [id number] [place] [address] [place] Nucleated RBC (Bld) [#/Vol] 10*3/uL Normal <0.01 [facility] Comment on above: Order Comment: Speci men Type: BLOOD SPECIMENOrdering Facility: [facility] Address: [address] [place] [address] Performed By: #### 5 8410-2 ####[facility] [id number] [place] [address] [place] Platelet mean volume (Bld) [Entitic vol] 10.0 fL Normal 9.0-12.7 [facility] Comment on above: Order Comment: Speci men Type: BLOOD SPECIMENOrdering Facility: [facility] Address: [address] [place] [address] Performed By: #### 5 8410-2 ####[facility] LABIA [id number] [place] [address] [place] Platelets (Bld) [#/Vol] 294 10*3/uL Normal 150-400 [facility] Comment on above: Order Comment: Speci men Type: BLOOD SPECIMENOrdering Facility: [facility] Address: [address] [place] [address] Performed By: #### 5 8410-2 ####[facility] LABIA [id number] [place] [address] [place] RBC (Bld) [#/Vol] 4.46 10*6/uL Normal 4.20-6.00 [facility] Comment on above: Order Comment: Speci men Type: BLOOD SPECIMENOrdering Facility: [facility] Address: [address] [place] [address] Performed By: #### 5 8410-2 ####[facility] LABIA [id number] [place] [address] [place] WBC (Bld) [#/Vol] 8.80 10*3/uL Normal 3.70-11.00 [facility] Comment on above: Order Comment: Speci men Type: BLOOD SPECIMENOrdering Facility: [facility] Address: [address] [place] [address] Performed By: #### 5 8410-2 ####[facility] LABIA [id number] [place] [address] [place] CONSULT PROGon 04-08-2023 CONSULT PROG Normal [facility] Comprehensive metabolic 2000 panelon 04-08-2023 Albumin [Mass/Vol] 3.6 g/dL Low 3.9-4.9 [facility] Comment on above: Order Comment: Speci men Type: BLOOD SPECIMENOrdering Facility: [facility] Address: [address] [place], [place] [address] Performed By: #### 2 4323-8, 56175-1 ####[facility] LABIA [id number] [place] [address] [place] ALP [Catalytic activity/Vol] 182 U/L High 38-113 [facility] Comment on above: Order Comment: Speci men Type: BLOOD SPECIMENOrdering Facility: [facility] Address: [address] [place], [place] [address] Performed By: #### 2 4323-8, 66612-4 ####[facility] LABCLIA [id number] [place] [address] [place] ALT [Catalytic activity/Vol] 33 U/L Normal 10-54 [facility] Comment on above: Order Comment: Speci men Type: BLOOD SPECIMENOrdering Facility: [facility] Address: [address] [place] [address] Performed By: #### 2 432-8, ####[facility] LABCLIA [id number] [place] [address] [place] Anion gap [Moles/Vol] 15 mmol/L Normal 9-18 [facility] Comment on above: Order Comment: Speci men Type: BLOOD SPECIMENOrdering Facility: [facility] Address: [address] [place] [address] Performed By: #### 2 4328, ####[facility] LABCLIA [id number] [place] [address] [place] AST [Catalytic activity/Vol] 31 U/L Normal 14-40 [facility] Comment on above: Order Comment: Speci men Type: BLOOD SPECIMENOrdering Facility: [facility] Address: [address] [place], [place] [address] Performed By: #### 2 8, ####[facility] LABCLIA [id number] [place] [address] [place] Bilirubin [Mass/Vol] 1.0 mg/dL Normal 0.2-1.3 [facility] Comment on above: Order Comment: Speci men Type: BLOOD SPECIMENOrdering Facility: [facility] Address: [address] [place], [place] [address] Performed By: #### 2 432-8, ####[facility] LABCLIA [id number] [place] [address] [place] Calcium [Mass/Vol] 9.6 mg/dL Normal 8.5-10.2 [facility] Comment on above: Order Comment: Speci men Type: BLOOD SPECIMENOrdering Facility: [facility] Address: [address] Performed By: #### 2 4323-8, ####[facility] LABCLIA [id number] [place] [address] [place] Chloride [Moles/Vol] 92 mmol/L Low 97-105 [facility] Comment on above: Order Comment: Speci men Type: BLOOD SPECIMENOrdering Facility: [facility] Address: [address] [place] [address] Performed By: #### 2 4323-8, ####[facility] LABCLIA [id number] [address] [place] CO2 [Moles/Vol] 22 mmol/L Normal 22-30 [facility] Comment on above: Order Comment: Speci men Type: BLOOD SPECIMENOrdering Facility: [facility] Address: [address] [place] [address] Performed By: #### 2 43238, ####[facility] LABCLIA [id number] [address] [place] Creatinine [Mass/Vol] 2.44 mg/dL High 0.73-1.22 [facility] Comment on above: Order Comment: Speci men Type: BLOOD SPECIMENOrdering Facility: [facility] Address: [address] [place], [place] [address] Performed By: #### 2 4323-8, ####[facility] LABCLIA [id number] [address] [place] Creatinine and Glomerular filtration rate.predicted panel (S/P/Bld) 29 mL/min/1.73m??? Low >=60 [facility] Comment on above: Order Comment: Speci men Type: BLOOD SPECIMENOrdering Facility: [facility] Address: [address] [place] [address] Result Comment: Syl mated Glomerular Filtration Rate [...] actual GFR. Performed By: #### 2 4328, ####[facility] LABIA [id number] [place] [address] [place] Glucose [Mass/Vol] 192 mg/dL High 74-99 [facility] Comment on above: Order Comment: Joseline clemons Type: BLOOD SPECIMENOrdering Facility: [facility] Address: [address] [place] [address] Result Comment: The [place] [employer] (ADA) provides guidance for cutoff [...] Standards of Medical Care in Diabetes 2016, [place] [employer]. Diabetes Care. 2016.39(Suppl 1). Performed By: #### 2 432[address]-12, ####[facility] LABIA [id number] [place] [address] [place] Potassium [Moles/Vol] 4.8 mmol/L Normal 3.7-5.1 [facility] Comment on above: Order Comment: Joseline clemons Type: BLOOD SPECIMENOrdering Facility: [facility] Address: [address] [phone] Performed By: #### 2 4323-03, ####[facility] LABCLIA [id number] [place] [address] [place] Protein [Mass/Vol] 6.8 g/dL Normal 6.3-8.0 [facility] Comment on above: Order Comment: Speci men Type: BLOOD SPECIMENOrdering Facility: [facility] Address: [address] [place] [address] Performed By: #### 2 4328, ####[facility] LABCLIA [id number] [place] [address] [place] Sodium [Moles/Vol] 129 mmol/L Low 136-144 [facility] Comment on above: Order Comment: Speci men Type: BLOOD SPECIMENOrdering Facility: [facility] Address: [address] [place] [address] Performed By: #### 2 4328, ####[facility] LABIA [id number] [place] [address] [place] Urea nitrogen [Mass/Vol] 58 mg/dL High 9-24 [facility] Comment on above: Order Comment: Speci men Type: BLOOD SPECIMENOrdering Facility: [facility] Address: [address] [place] [address] Performed By: #### 2 432[address], ####[facility] LABCLIA [id number] [place] [address] [place] Magnesium SerPl-mCncon 04-08 Magnesium [Mass/Vol] 2.8 mg/dL High 1.7-2.3 [facility] Comment on above: Order Comment: Speci men Type: BLOOD SPECIMENOrdering Facility: [facility] Address: [address] [place] [address] Performed By: #### 2 4323-8, ####[facility] LABCLIA [id number] [address] [place] PT panel Coag (PPP)on 2022 INR Coag (PPP) [Relative time] 1.2 {INR} Normal 0.9-1.3 [facility] Comment on above: Order Comment: Joseline clemons Type: BLOOD SPECIMENOrdering Facility: [facility] Address: [address] [phone] Result Comment: Baylee min K Antagonist (VKA) Therapeutic Range: INR 2 to 3 (Target INR of 2.5)Note: For patients treated with VKA drugs, such as warfarin, the [place] [employer] 2012 Guideline recommends [...] of 3).Michellett GH, et al. Chest 2012, 141:7S-47SNishmati RA, et al. [facility] 2017, 70: 252-289 Performed By: #### 3 4528-0 ####[facility] LABCLIA [id number] [place] [address] [place] PT Coag (PPP) [Time] 11.9 s Normal 9.7-13.0 [facility] Comment on above: Order Comment: Joseline clemons Type: BLOOD SPECIMENOrdering Facility: [facility] Address: [place] [address] Performed By: #### 3 4528-0 ####[facility] LABCLIA [id number] [address] [place] CASE MANAGEMon 04-07-2023 CASE MANAGEM Normal [facility] CBC panel Auto (Bld)on 04-07 Erythrocyte distribution width (RBC) [Ratio] 20.6 % High 11.5-15.0 [facility] Comment on above: Order Comment: Speci men Type: BLOOD SPECIMENOrdering Facility: [facility] Address: [address] [place] [address] Performed By: #### 5 8410-2 ####[facility] LABIA [id number] [place] [address] [place] [facility] Hematocrit (Bld) [Volume fraction] 35.8 % Low 39.0-51.0 [facility] Comment on above: Order Comment: Speci men Type: BLOOD SPECIMENOrdering Facility: [facility] Address: [address] [place] [address] Performed By: #### 5 8410-2 ####[facility] LABIA [id number] [address] [place] Hemoglobin (Bld) [Mass/Vol] 10.9 g/dL Low 13.0-17.0 [facility] Comment on above: Order Comment: Speci men Type: BLOOD SPECIMENOrdering Facility: [facility] Address: [address] [place] [address] Performed By: #### 5 8410-2 ####[facility] LABIA [id number] [place] [address] [place] MCH (RBC) [Entitic mass] 24.4 pg Low 26.0-34.0 [facility] Comment on above: Order Comment: Speci men Type: BLOOD SPECIMENOrdering Facility: [facility] Address: [address] [place], [place] [address] Performed By: #### 5 8410-2 ####[facility] LABIA [id number] [place] [address] [place] MCHC (RBC) [Mass/Vol] 30.4 g/dL Low 30.5-36.0 [facility] Comment on above: Order Comment: Speci men Type: BLOOD SPECIMENOrdering Facility: [facility] Address: [address] Performed By: #### 5 8410-2 ####[facility] [id number] [address] [place] MCV (RBC) [Entitic vol] 80.3 fL Normal 80.0-100.0 [facility] Comment on above: Order Comment: Speci men Type: BLOOD SPECIMENOrdering Facility: [facility] Address: [address] Performed By: #### 5 8410-2 ####[facility] [id number] [place] [address] [place] Nucleated RBC (Bld) [#/Vol] 10*3/uL Normal <0.01 [facility] Comment on above: Order Comment: Speci men Type: BLOOD SPECIMENOrdering Facility: [facility] Address: [address] Performed By: #### 5 8410-2 ####[facility] [id number] [place] [address] [place] Platelet mean volume (Bld) [Entitic vol] 10.4 fL Normal 9.0-12.7 [facility] Comment on above: Order Comment: Speci men Type: BLOOD SPECIMENOrdering Facility: [facility] Address: [address] [place] [address] Performed By: #### 5 8410-2 ####[facility] LABIA [id number] [place] [address] [place] Platelets (Bld) [#/Vol] 298 10*3/uL Normal 150-400 [facility] Comment on above: Order Comment: Speci men Type: BLOOD SPECIMENOrdering Facility: [facility] Address: [address] [place] [address] Performed By: #### 5 8410-2 ####[facility] LABIA [id number] [place] [address] [place] RBC (Bld) [#/Vol] 4.46 10*6/uL Normal 4.20-6.00 [facility] Comment on above: Order Comment: Speci men Type: BLOOD SPECIMENOrdering Facility: [facility] Address: [address] [place] [address] Performed By: #### 5 8410-2 ####[facility] LABIA [id number] [place] [address] [place] WBC (Bld) [#/Vol] 8.02 10*3/uL Normal 3.70-11.00 [facility] Comment on above: Order Comment: Speci men Type: BLOOD SPECIMENOrdering Facility: [facility] Address: [address] [place] [address] Performed By: #### 5 8410-2 ####[facility] [id number] [place] [address] [place] CONSULTon 04-07-2023 CONSULT Normal [facility] Comprehensive metabolic 2000 panelon 04-07-2023 Albumin [Mass/Vol] 3.6 g/dL Low 3.9-4.9 [facility] Comment on above: Order Comment: Speci men Type: BLOOD SPECIMENOrdering Facility: [facility] Address: [address] [place] [address] Performed By: #### 2 4323-8, ####[facility] [id number] [place] [address] [place] ALP [Catalytic activity/Vol] 171 U/L High 38-113 [facility] Comment on above: Order Comment: Speci men Type: BLOOD SPECIMENOrdering Facility: [facility] Address: [address] [place], [place] [address] Performed By: #### 2 4323-, ####[facility] LABCLIA [id number] [place] [id number] [place] ALT [Catalytic activity/Vol] 24 U/L Normal 10-54 [facility] Comment on above: Order Comment: Speci men Type: BLOOD SPECIMENOrdering Facility: [facility] Address: [address] [place] [address] Performed By: #### 2 8, ####[facility] LABCLIA [id number] [place] [address] [place] Anion gap [Moles/Vol] 14 mmol/L Normal 9-18 [facility] Comment on above: Order Comment: Speci men Type: BLOOD SPECIMENOrdering Facility: [facility] Address: [address] [place] [address] Performed By: #### 2 4323-03, ####[facility] LABCLIA [id number] [place] [address] [place] AST [Catalytic activity/Vol] 28 U/L Normal 14-40 [facility] Comment on above: Order Comment: Speci men Type: BLOOD SPECIMENOrdering Facility: [facility] Address: [address] [place] [address] Performed By: #### 2 4328, ####[facility] LABCLIA [id number] [place] [address] [place] Bilirubin [Mass/Vol] 1.1 mg/dL Normal 0.2-1.3 [facility] Comment on above: Order Comment: Speci men Type: BLOOD SPECIMENOrdering Facility: [facility] Address: [address] [place] [address] Performed By: #### 2 4323-8, ####[facility] LABCLIA [id number] [place] [address] [place] Calcium [Mass/Vol] 9.5 mg/dL Normal 8.5-10.2 [facility] Comment on above: Order Comment: Speci men Type: BLOOD SPECIMENOrdering Facility: [facility] Address: [address] [place] [address] Performed By: #### 2 4328, ####[facility] LABCLIA [id number] [place] [address] [place] Chloride [Moles/Vol] 92 mmol/L Low 97-105 [facility] Comment on above: Order Comment: Speci men Type: BLOOD SPECIMENOrdering Facility: [facility] Address: [address] [place], [place] [address] Performed By: #### 2 8, ####[facility] LABCLIA [id number] [place] [address] [place] CO2 [Moles/Vol] 22 mmol/L Normal 22-30 [facility] Comment on above: Order Comment: Speci men Type: BLOOD SPECIMENOrdering Facility: [facility] Address: [address] [place], [place] [address] Performed By: #### 2 4323-03, ####[facility] LABCLIA [id number] [place] [address] [place] Creatinine [Mass/Vol] 2.30 mg/dL High 0.73-1.22 [facility] Comment on above: Order Comment: Speci men Type: BLOOD SPECIMENOrdering Facility: [facility] Address: [address] [place], [place] [address] Performed By: #### 2 8, ####[facility] LABCLIA [id number] [place] [address] [place] Creatinine and Glomerular filtration rate.predicted panel (S/P/Bld) 31 mL/min/1.73m??? Low >=60 [facility] Comment on above: Order Comment: Joseline clemons Type: BLOOD SPECIMENOrdering Facility: [facility] Address: [address] [place] [id number] Result Comment: Syl mated Glomerular Filtration Rate [...] actual GFR. Performed By: #### 2 4323-8, ####[facility] LABIA [id number] [place] [address] [place] Glucose [Mass/Vol] 203 mg/dL High 74-99 [facility] Comment on above: Order Comment: Joseline clemons Type: BLOOD SPECIMENOrdering Facility: [facility] Address: [address] [place] [address] Result Comment: The [place] [employer] (ADA) provides guidance for cutoff [...] Standards of Medical Care in Diabetes 2016, [place] [employer]. Diabetes Care. 2016.39(Suppl 1). Performed By: #### 2 4323-8, ####[facility] LABIA [id number] [place] [address] [place] Potassium [Moles/Vol] 5.1 mmol/L Normal 3.7-5.1 [facility] Comment on above: Order Comment: Joseline clmeons Type: BLOOD SPECIMENOrdering Facility: [facility] Address: [address] Performed By: #### 2 4323-8, ####[facility] LABIA [id number] [place] [address] [place] Protein [Mass/Vol] 7.2 g/dL Normal 6.3-8.0 [facility] Comment on above: Order Comment: Speci men Type: BLOOD SPECIMENOrdering Facility: [facility] Address: [address] [place] [address] Performed By: #### 2 4323-8, ####[facility] LABIA [id number] [place] [address] [place] Sodium [Moles/Vol] 128 mmol/L Low 136-144 [facility] Comment on above: Order Comment: Speci men Type: BLOOD SPECIMENOrdering Facility: [facility] Address: [address] [place] [address] Performed By: #### 2 4323-8, ####[facility] LABIA [id number] [place] [address] [place] Urea nitrogen [Mass/Vol] 56 mg/dL High 9-24 [facility] Comment on above: Order Comment: Speci men Type: BLOOD SPECIMENOrdering Facility: [facility] Address: [address] Performed By: #### 2 4323-8, ####[facility] LABIA [id number] [place] [id number] [place] ICD CLINIC CHECKon 3 AV Delay Adaptive Paced Minimum (ms) 140 ms [facility] AV Delay Adaptive Sensed Minimum (ms) 100 ms [facility] Federico LV Pacing Amplitude (volts) 3.5 V [facility] Federico LV Pacing Pulse Width (ms) 0.5 ms [facility] federico LV Sensing Amplitude (mvolts) 1.0 mV [facility] [place] RA Pacing Amplitude (volts) 5.0 V [facility] [place] RA Pacing Polarity BI [facility] [place] RA Pacing Pulse Width (ms) 0.4 ms [facility] [place] RA Sensing Amplitude (mvolts) 0.25 mV [facility] [place] RA Sensing Polarity BI [facility] [place] RV Pacing Amplitude (volts) 2.0 V [facility] [place]ico RV Pacing Polarity BI [facility] [place] RV Pacing Pulse Width (ms) 0.4 ms [facility] [place] RV Sensing Amplitude (mvolts) 0.3 mV [facility] Federico RV Sensing Polarity BI [facility] Detection Configuration (Vent) 2 - Zone [facility] FastVT_Detection Interval 300 ms [facility] FastVT_Therapy Configuration 1 ATP(s) + 8 Shock(s) [facility] ICD FastVT DetectionStatus ENABLED [facility] ICD-AMS EPISODES 170 {beats}/min [facility] ICD-ATP Episodes (Vent) 0 [facility] ICD-ATRIALFIBRILLATIO N 0 [facility] ICD-Device Mfg BSX [facility] ICD-LEADIMPEDANCEATRI AL 751 ohm [facility] ICD-Percent Pacing (Atrial) 2 % [facility] ICD-Percent Pacing (Vent) 4 % [facility] ICD-Rhythm Sinus Rhythm with frequent PVCs/bigeminy [facility] ICD-Shocks Aborted (Vent) 0 [facility] [id number] 0 [facility] ICD-SHOCKSABORTED 0 [facility] ICD-SHOCKSDELIVEREDVE NTRICULAR 0 [facility] ICD-Ventricular Fibrillation 0 [facility] Implant Date 10/18/2017 [facility] Lead Impedance (LV) 1039 ohm [facility] Lead Impedance (RV) 513 ohm [facility] Lead Impedance High Voltage 78 ohm [facility] Lead1 Mfg BSX [facility] Lead2 Mfg BSX [facility] Lead3 Mfg BSX [facility] Location LV [facility] Location RA [facility] Location RV [facility] Lower Rate (bpm) 60 {beats}/min [facility] LV PACING % 91 % [facility] Max Sensor Rate (bpm) 130 {beats}/min [facility] MDT_PROG_TACHY_ZONE_D ETECTIONS_STATUS ENABLED [facility] Model G247 VIGILANT X4 ANTENNA MACHINE OPERATOR-D Cl [facility] Model 4671 Acuity X4 Straight [facility] Model 7841 Ingevity + MRI [facility] Model 0292 [place] Relianc e 4-Site SG [facility] Pacemaker Dependent? NO [facility] Pacing Mode DDD [facility] Serial Number [id number] [facility] Serial Number [id number] [facility] Serial Number [id number] [facility] Serial Number [id number] [facility] Test Charge Time 9.9 s [facility] Therapy Status (Vent) Enabled [facility] Thresh LV Capture Amplitude (volts) 1.8 V [facility] Thresh LV Capture Duration (ms) 0.5 ms [facility] Thresh RA Capture Amplitude (volts) 0.6 V [facility] Thresh RA Capture Duration (ms) 0.4 ms [facility] Thresh RV Capture Amplitude (VOLTS) 0.6 V [facility] Thresh RV Capture Duration (MS) 0.4 ms [facility] Tracking Rate (bpm) 130 {beats}/min [facility] VF Zone Detection Interval 300 ms [facility] VF Zone Therapy Configuration 1 ATP(s) + 8 Shock(s) [facility] Magnesium SerPl-mCncon 04-07 Magnesium [Mass/Vol] 2.6 mg/dL High 1.7-2.3 [facility] Comment on above: Order Comment: Speci men Type: BLOOD SPECIMENOrdering Facility: [facility] Address: [address] [place] [address] Performed By: #### 2 4323-8, 97828-2 ####[facility] LABCLIA [id number] [address] [place] No Panel Informationon 04-07 BLANK _ [facility] ICD-Fast Ventricular Tachycardia 0 [facility] Implant Date 03/31/2023 [facility] POTASSIUM BLDon 04-07-2023 Potassium [Moles/Vol] 5.0 mmol/L Normal 3.7-5.1 [facility] Comment on above: Order Comment: Speci men Type: BLOOD SPECIMENOrdering Facility: [facility] Address: [address] [place] [address] Performed By: #### K 1 ####[facility] LABCLIA [id number] [address] [place] CBC panel Auto (Bld)on 04-06 Erythrocyte distribution width (RBC) [Ratio] 20.1 % High 11.5-15.0 [facility] Comment on above: Order Comment: Speci men Type: BLOOD SPECIMENOrdering Facility: [facility] Address: [address] [place] [address] Performed By: #### 5 8410-2 ####[facility] [id number] [address] [place] Hematocrit (Bld) [Volume fraction] 33.3 % Low 39.0-51.0 [facility] Comment on above: Order Comment: Speci men Type: BLOOD SPECIMENOrdering Facility: [facility] Address: [address] [place] [address] Performed By: #### 5 8410-2 ####[facility] [id number] [address] [place] Hemoglobin (Bld) [Mass/Vol] 10.3 g/dL Low 13.0-17.0 [facility] Comment on above: Order Comment: Speci men Type: BLOOD SPECIMENOrdering Facility: [facility] Address: [address] [place] [address] Performed By: #### 5 8410-2 ####[facility] [id number] [address] [place] MCH (RBC) [Entitic mass] 24.6 pg Low 26.0-34.0 [facility] Comment on above: Order Comment: Speci men Type: BLOOD SPECIMENOrdering Facility: [facility] Address: [address] [place] [address] Performed By: #### 5 8410-2 ####[facility] [id number] [address] [place] MCHC (RBC) [Mass/Vol] 30.9 g/dL Normal 30.5-36.0 [facility] Comment on above: Order Comment: Speci men Type: BLOOD SPECIMENOrdering Facility: [facility] Address: [address] [place], [place] [address] Performed By: #### 5 8410-2 ####[facility] LABIA [id number] [address] [place] MCV (RBC) [Entitic vol] 79.5 fL Low 80.0-100.0 [facility] Comment on above: Order Comment: Speci men Type: BLOOD SPECIMENOrdering Facility: [facility] Address: [address] [place], [place] [address] Performed By: #### 5 8410-2 ####[facility] LABIA [id number] [place] [address] [place] Nucleated RBC (Bld) [#/Vol] 10*3/uL Normal <0.01 [facility] Comment on above: Order Comment: Speci men Type: BLOOD SPECIMENOrdering Facility: [facility] Address: [address] [place], [place] [address] Performed By: #### 5 8410-2 ####[facility] LABIA [id number] [place] [address] [place] Platelet mean volume (Bld) [Entitic vol] 10.7 fL Normal 9.0-12.7 [facility] Comment on above: Order Comment: Speci men Type: BLOOD SPECIMENOrdering Facility: [facility] Address: [address] [place], [place] [address] Performed By: #### 5 8410-2 ####[facility] LABIA [id number] [place] [address] [place] Platelets (Bld) [#/Vol] 305 10*3/uL Normal 150-400 [facility] Comment on above: Order Comment: Speci men Type: BLOOD SPECIMENOrdering Facility: [facility] Address: [address] Performed By: #### 5 8410-2 ####[facility] LABIA [id number] [place] [address] [place] RBC (Bld) [#/Vol] 4.19 10*6/uL Low 4.20-6.00 [facility] Comment on above: Order Comment: Speci men Type: BLOOD SPECIMENOrdering Facility: [facility] Address: [address] Performed By: #### 5 8410-2 ####[facility] LABIA [id number] [place] [address] [place] WBC (Bld) [#/Vol] 7.31 10*3/uL Normal 3.70-11.00 [facility] Comment on above: Order Comment: Speci men Type: BLOOD SPECIMENOrdering Facility: [facility] Address: [address] [place], [place] [address] Performed By: #### 5 8410-2 ####[facility] LABIA [id number] [place] [address] [place] Comprehensive metabolic 2000 panelon 04-06-2023 Albumin [Mass/Vol] 3.0 g/dL Low 3.9-4.9 [facility] Comment on above: Order Comment: Speci men Type: BLOOD SPECIMENOrdering Facility: [facility] Address: [address] [place], [place] [address] Performed By: #### 1 9123-9, 02000-4 ####[facility] LABIA [id number] [place] [address] [place] ALP [Catalytic activity/Vol] 142 U/L High 38-113 [facility] Comment on above: Order Comment: Speci men Type: BLOOD SPECIMENOrdering Facility: [facility] Address: [address] [place], [place] [address] Performed By: #### 1 9123-9, 94145-8 ####[facility] LABCLIA [id number] [place] [address] [place] ALT [Catalytic activity/Vol] 18 U/L Normal 10-54 [facility] Comment on above: Order Comment: Speci men Type: BLOOD SPECIMENOrdering Facility: [facility] Address: [address] [place] [address] Performed By: #### 1 239, 33244-1 ####[facility] LABCLIA [id number] [place] [address] [place] Anion gap [Moles/Vol] 12 mmol/L Normal 9-18 [facility] Comment on above: Order Comment: Speci men Type: BLOOD SPECIMENOrdering Facility: [facility] Address: [address] [place] [address] Performed By: #### 1 9, ####[facility] LABIA [id number] [place] [address] [place] AST [Catalytic activity/Vol] 29 U/L Normal 14-40 [facility] Comment on above: Order Comment: Speci men Type: BLOOD SPECIMENOrdering Facility: [facility] Address: [address] [place] [address] Result Comment: Resu lts may be falsely increased due to interference from hemolysis. Suggest reorder as clinically indicated. Performed By: #### 1 23-9, 27098-7 ####[facility] LABCLIA [id number] [place] [address] [place] Bilirubin [Mass/Vol] 1.0 mg/dL Normal 0.2-1.3 [facility] Comment on above: Order Comment: Speci men Type: BLOOD SPECIMENOrdering Facility: [facility] Address: [address] [place] [address] Performed By: #### 1 239, ####[facility] LABCLIA [id number] [place] [address] [place] Calcium [Mass/Vol] 8.7 mg/dL Normal 8.5-10.2 [facility] Comment on above: Order Comment: Speci men Type: BLOOD SPECIMENOrdering Facility: [facility] Address: [address] [place] [address] Performed By: #### 1 9123-9, ####[facility] LABCLIA [id number] [place] [address] [place] Chloride [Moles/Vol] 96 mmol/L Low 97-105 [facility] Comment on above: Order Comment: Speci men Type: BLOOD SPECIMENOrdering Facility: [facility] Address: [address] [place] [address] Performed By: #### 1 9123-9, ####[facility] LABCLIA [id number] [place] [address] [place] CO2 [Moles/Vol] 21 mmol/L Low 22-30 [facility] Comment on above: Order Comment: Speci men Type: BLOOD SPECIMENOrdering Facility: [facility] Address: [address] [place] [address] Performed By: #### 1 9123-9, 00589-1 ####[facility] LABCLIA [id number] [place] [address] [place] Creatinine [Mass/Vol] 2.08 mg/dL High 0.73-1.22 [facility] Comment on above: Order Comment: Speci men Type: BLOOD SPECIMENOrdering Facility: [facility] Address: [address] [place] [address] Performed By: #### 1 9123-9, 38619-2 ####[facility] LABCLIA [id number] [place] [address] [place] Creatinine and Glomerular filtration rate.predicted panel (S/P/Bld) 35 mL/min/1.73m??? Low >=60 [facility] Comment on above: Order Comment: Joseline clemons Type: BLOOD SPECIMENOrdering Facility: [facility] Address: [address] [place], [place] [address] Result Comment: Syl mated Glomerular Filtration Rate [...] actual GFR. Performed By: #### 1 9123-9, 16159-6 ####[facility] LABCLIA [id number] [place] [address] [place] Glucose [Mass/Vol] 174 mg/dL High 74-99 [facility] Comment on above: Order Comment: Joseline clemons Type: BLOOD SPECIMENOrdering Facility: [facility] Address: [address] [place] [address] Result Comment: The [place] [employer] (ADA) provides guidance for cutoff [...] Standards of Medical Care in Diabetes 2016, [place] [employer]. Diabetes Care. 2016.39(Suppl 1). Performed By: #### 1 9123-9, 44900-7 ####[facility] LABCLIA [id number] [place] [address] [place] Potassium [Moles/Vol] 4.9 mmol/L Normal 3.7-5.1 [facility] Comment on above: Order Comment: Speci men Type: BLOOD SPECIMENOrdering Facility: [facility] Address: [address] [place], [place] [address] Performed By: #### 1 23-9, ####[facility] LABCLIA [id number] [place] [address] [place] Protein [Mass/Vol] 5.9 g/dL Low 6.3-8.0 [facility] Comment on above: Order Comment: Speci men Type: BLOOD SPECIMENOrdering Facility: [facility] Address: [address] [place] [address] Performed By: #### 1 9123-9, ####[facility] LABCLIA [id number] [place] [address] [place] Sodium [Moles/Vol] 129 mmol/L Low 136-144 [facility] Comment on above: Order Comment: Speci men Type: BLOOD SPECIMENOrdering Facility: [facility] Address: [address] [place] [address] Performed By: #### 1 239, ####[facility] LABCLIA [id number] [place] [address] [place] Urea nitrogen [Mass/Vol] 55 mg/dL High 9-24 [facility] Comment on above: Order Comment: Speci men Type: BLOOD SPECIMENOrdering Facility: [facility] Address: [address] [place], [place] [address] Performed By: #### 1 9123-9, 05647-2 ####[facility] LABCLIA [id number] [place] [address] [place] Magnesium SerPl-mCncon 04-06 Magnesium [Mass/Vol] 2.5 mg/dL High 1.7-2.3 [facility] Comment on above: Order Comment: Speci men Type: BLOOD SPECIMENOrdering Facility: [facility] Address: [address] Performed By: #### 1 9123-9, 61375-2 ####[facility] LABCLIA [id number] [place] [address] [place] POTASSIUM BLDon 04-06-2023 Potassium [Moles/Vol] 5.1 mmol/L Normal 3.7-5.1 [facility] Comment on above: Order Comment: Speci men Type: BLOOD SPECIMENOrdering Facility: [facility] Address: [address] [place] [address] Performed By: #### K 1 ####[facility] LABCLIA [id number] [place] [address] [place] CASE MANAGEMon 04-05-2023 CASE MANAGEM Normal [facility] CBC panel Auto (Bld)on 04-05 Erythrocyte distribution width (RBC) [Ratio] 20.1 % High 11.5-15.0 [facility] Comment on above: Order Comment: Speci men Type: BLOOD SPECIMENOrdering Facility: [facility] Address: [address] [place], [place] [address] Performed By: #### 5 8410-2 ####[facility] LABCLIA [id number] [place] [address] [place] Hematocrit (Bld) [Volume fraction] 33.3 % Low 39.0-51.0 [facility] Comment on above: Order Comment: Speci men Type: BLOOD SPECIMENOrdering Facility: [facility] Address: [address] Performed By: #### 5 8410-2 ####[facility] LABCLIA [id number] [place] [address] [place] Hemoglobin (Bld) [Mass/Vol] 10.5 g/dL Low 13.0-17.0 [facility] Comment on above: Order Comment: Speci men Type: BLOOD SPECIMENOrdering Facility: [facility] Address: [address] [place] [address] Performed By: #### 5 8410-2 ####[facility] [id number] [address] [place] [facility] MCH (RBC) [Entitic mass] 24.8 pg Low 26.0-34.0 [facility] Comment on above: Order Comment: Speci men Type: BLOOD SPECIMENOrdering Facility: [facility] Address: [address] [address] Performed By: #### 5 8410-2 ####[facility] [id number] [address] [place] [facility] MCHC (RBC) [Mass/Vol] 31.5 g/dL Normal 30.5-36.0 [facility] Comment on above: Order Comment: Speci men Type: BLOOD SPECIMENOrdering Facility: [facility] Address: [address] Performed By: #### 5 8410-2 ####[facility] [id number] [address] [place] [facility] MCV (RBC) [Entitic vol] 78.7 fL Low 80.0-100.0 [facility] Comment on above: Order Comment: Speci men Type: BLOOD SPECIMENOrdering Facility: [facility] Address: [address] Performed By: #### 5 8410-2 ####[facility] [id number] [address] [place] Nucleated RBC (Bld) [#/Vol] 10*3/uL Normal <0.01 [facility] Comment on above: Order Comment: Speci men Type: BLOOD SPECIMENOrdering Facility: [facility] Address: [address] Performed By: #### 5 8410-2 ####[facility] LABIA [id number] [place] [address] [place] Platelet mean volume (Bld) [Entitic vol] 10.3 fL Normal 9.0-12.7 [facility] Comment on above: Order Comment: Speci men Type: BLOOD SPECIMENOrdering Facility: [facility] Address: [address] [place], [place] [address] Performed By: #### 5 8410-2 ####[facility] LABIA [id number] [place] [address] [place] Platelets (Bld) [#/Vol] 295 10*3/uL Normal 150-400 [facility] Comment on above: Order Comment: Speci men Type: BLOOD SPECIMENOrdering Facility: [facility] Address: [address] [place], [place] [address] Performed By: #### 5 8410-2 ####[facility] LABIA [id number] [place] [address] [place] RBC (Bld) [#/Vol] 4.23 10*6/uL Normal 4.20-6.00 [facility] Comment on above: Order Comment: Speci men Type: BLOOD SPECIMENOrdering Facility: [facility] Address: [address] [place], [place] [address] Performed By: #### 5 8410-2 ####[facility] LABIA [id number] [place] [address] [place] WBC (Bld) [#/Vol] 8.11 10*3/uL Normal 3.70-11.00 [facility] Comment on above: Order Comment: Speci men Type: BLOOD SPECIMENOrdering Facility: [facility] Address: [address] [place], [place] [address] Performed By: #### 5 8410-2 ####[facility] LABIA [id number] [place] [address] [place] Comprehensive metabolic 2000 panelon 04-05-2023 Albumin [Mass/Vol] 3.2 g/dL Low 3.9-4.9 [facility] Comment on above: Order Comment: Speci men Type: BLOOD SPECIMENOrdering Facility: [facility] Address: [address] [place] [address] Performed By: #### 2 4323-8 ####[facility] LABCLIA [id number] [place] [address] [place] ALP [Catalytic activity/Vol] 151 U/L High 38-113 [facility] Comment on above: Order Comment: Speci men Type: BLOOD SPECIMENOrdering Facility: [facility] Address: [address] [place] [address] Performed By: #### 2 4323-8 ####[facility] LABCLIA [id number] [place] [address] [place] ALT [Catalytic activity/Vol] 18 U/L Normal 10-54 [facility] Comment on above: Order Comment: Speci men Type: BLOOD SPECIMENOrdering Facility: [facility] Address: [address] [place] [address] Performed By: #### 2 4323-8 ####[facility] LABCLIA [id number] [place] [address] [place] Anion gap [Moles/Vol] 13 mmol/L Normal 9-18 [facility] Comment on above: Order Comment: Speci men Type: BLOOD SPECIMENOrdering Facility: [facility] Address: [address] [place] [address] Performed By: #### 2 4323-8 ####[facility] LABCLIA [id number] [place] [address] [place] AST [Catalytic activity/Vol] 20 U/L Normal 14-40 [facility] Comment on above: Order Comment: Speci men Type: BLOOD SPECIMENOrdering Facility: [facility] Address: [address] Performed By: #### 2 4323-8 ####[facility] LABCLIA [id number] [place] [address] [place] Bilirubin [Mass/Vol] 1.2 mg/dL Normal 0.2-1.3 [facility] Comment on above: Order Comment: Speci men Type: BLOOD SPECIMENOrdering Facility: [facility] Address: [address] Performed By: #### 2 4323-8 ####[facility] LABCLIA [id number] [place] [address] [place] Calcium [Mass/Vol] 9.0 mg/dL Normal 8.5-10.2 [facility] Comment on above: Order Comment: Speci men Type: BLOOD SPECIMENOrdering Facility: [facility] Address: [address] Performed By: #### 2 4323-8 ####[facility] LABCLIA [id number] [place] [address] [place] Chloride [Moles/Vol] 96 mmol/L Low 97-105 [facility] Comment on above: Order Comment: Speci men Type: BLOOD SPECIMENOrdering Facility: [facility] Address: [address] Performed By: #### 2 4323-8 ####[facility] LABCLIA [id number] [place] [address] [place] CO2 [Moles/Vol] 22 mmol/L Normal 22-30 [facility] Comment on above: Order Comment: Speci men Type: BLOOD SPECIMENOrdering Facility: [facility] Address: [address] Performed By: #### 2 4323-8 ####[facility] LABCLIA [id number] [address] STATES OF [facility] Creatinine [Mass/Vol] 2.15 mg/dL High 0.73-1.22 [facility] Comment on above: Order Comment: Joseline clemons Type: BLOOD SPECIMENOrdering Facility: [facility] Address: [address] [address] Performed By: #### 2 4323-8 ####[facility] LABIA [id number] [address] Creatinine and Glomerular filtration rate.predicted panel (S/P/Bld) 33 mL/min/1.73m??? Low >=60 [facility] Comment on above: Order Comment: Joseline clemons Type: BLOOD SPECIMENOrdering Facility: [facility] Address: [address] [place] [address] Result Comment: Syl mated Glomerular Filtration Rate [...] actual GFR. Performed By: #### 2 4323-8 ####[facility] LABIA [id number] [place] [address] [place] Glucose [Mass/Vol] 208 mg/dL High 74-99 [facility] Comment on above: Order Comment: Joseline clemons Type: BLOOD SPECIMENOrdering Facility: [facility] Address: [address] [address] Result Comment: The [place] [employer] (ADA) provides guidance for cutoff [...] Standards of Medical Care in Diabetes 2016, [place] [employer]. Diabetes Care. 2016.39(Suppl 1). Performed By: #### 2 4323-8 ####[facility] LABCLIA [id number] [place] [address] [place] Potassium [Moles/Vol] 4.4 mmol/L Normal 3.7-5.1 [facility] Comment on above: Order Comment: Speci men Type: BLOOD SPECIMENOrdering Facility: [facility] Address: [address] [address] Performed By: #### 2 4323-8 ####[facility] LABIA [id number] [place] [address] [place] Protein [Mass/Vol] 6.4 g/dL Normal 6.3-8.0 [facility] Comment on above: Order Comment: Speci men Type: BLOOD SPECIMENOrdering Facility: [facility] Address: [address] [address] Performed By: #### 2 4323-8 ####[facility] LABIA [id number] [place] [address] [place] Sodium [Moles/Vol] 131 mmol/L Low 136-144 [facility] Comment on above: Order Comment: Speci men Type: BLOOD SPECIMENOrdering Facility: [facility] Address: [address] Performed By: #### 2 4323-8 ####[facility] LABIA [id number] [place] [address] [place] Urea nitrogen [Mass/Vol] 50 mg/dL High 9-24 [facility] Comment on above: Order Comment: Speci men Type: BLOOD SPECIMENOrdering Facility: [facility] Address: [address] Performed By: #### 2 4323-8 ####[facility] LABCLIA [id number] [place] [id number] [place] ECG COMPLETEon 04-05-2023 ECG COMPLETE Normal [facility] Magnesium SerPl-mCncon 04-05 Magnesium [Mass/Vol] 2.5 mg/dL High 1.7-2.3 [facility] Comment on above: Order Comment: Speci men Type: BLOOD SPECIMENOrdering Facility: [facility] Address: [address] Performed By: #### 1 9123-9 ####[facility] LABCLIA [id number] [place] [address] [place] NUTRITIONon 04-05-2023 NUTRITION Normal [facility] CBC panel Auto (Bld)on 04-04 Erythrocyte distribution width (RBC) [Ratio] 20.0 % High 11.5-15.0 [facility] Comment on above: Order Comment: Speci men Type: BLOOD SPECIMENOrdering Facility: [facility] Address: [address] [place] [address] Performed By: #### 5 8410-2 ####[facility] LABIA [id number] [place] [address] [place] Hematocrit (Bld) [Volume fraction] 31.7 % Low 39.0-51.0 [facility] Comment on above: Order Comment: Speci men Type: BLOOD SPECIMENOrdering Facility: [facility] Address: [address] Performed By: #### 5 8410-2 ####[facility] LABIA [id number] [place] [address] [place] Hemoglobin (Bld) [Mass/Vol] 9.9 g/dL Low 13.0-17.0 [facility] Comment on above: Order Comment: Speci men Type: BLOOD SPECIMENOrdering Facility: [facility] Address: [address] [address] Performed By: #### 5 8410-2 ####[facility] LABIA [id number] [address] MCH (RBC) [Entitic mass] 24.5 pg Low 26.0-34.0 [facility] Comment on above: Order Comment: Speci men Type: BLOOD SPECIMENOrdering Facility: [facility] Address: [address] [address] Performed By: #### 5 8410-2 ####[facility] LABIA [id number] [address] [place] MCHC (RBC) [Mass/Vol] 31.2 g/dL Normal 30.5-36.0 [facility] Comment on above: Order Comment: Speci men Type: BLOOD SPECIMENOrdering Facility: [facility] Address: [address] [place], [place] [address] Performed By: #### 5 8410-2 ####[facility] LABIA [id number] [place] [address] [place] MCV (RBC) [Entitic vol] 78.5 fL Low 80.0-100.0 [facility] Comment on above: Order Comment: Speci men Type: BLOOD SPECIMENOrdering Facility: [facility] Address: [address] [place], [place] [address] Performed By: #### 5 8410-2 ####[facility] LABIA [id number] [place] [address] [place] Nucleated RBC (Bld) [#/Vol] 10*3/uL Normal <0.01 [facility] Comment on above: Order Comment: Speci men Type: BLOOD SPECIMENOrdering Facility: [facility] Address: [address] [place], [place] [address] Performed By: #### 5 8410-2 ####[facility] LABCLIA [id number] [place] [address] [place] Platelet mean volume (Bld) [Entitic vol] 10.0 fL Normal 9.0-12.7 [facility] Comment on above: Order Comment: Speci men Type: BLOOD SPECIMENOrdering Facility: [facility] Address: [address] [place] [address] Performed By: #### 5 8410-2 ####[facility] LABCLIA [id number] [place] [address] [place] Platelets (Bld) [#/Vol] 258 10*3/uL Normal 150-400 [facility] Comment on above: Order Comment: Speci men Type: BLOOD SPECIMENOrdering Facility: [facility] Address: [address] [place] [address] Performed By: #### 5 8410-2 ####[facility] LABIA [id number] [place] [address] [place] RBC (Bld) [#/Vol] 4.04 10*6/uL Low 4.20-6.00 [facility] Comment on above: Order Comment: Speci men Type: BLOOD SPECIMENOrdering Facility: [facility] Address: [address] [place], [place] [address] Performed By: #### 5 8410-2 ####[facility] LABIA [id number] [place] [address] [place] WBC (Bld) [#/Vol] 8.15 10*3/uL Normal 3.70-11.00 [facility] Comment on above: Order Comment: Speci men Type: BLOOD SPECIMENOrdering Facility: [facility] Address: [address] [place], [place] [address] Performed By: #### 5 8410-2 ####[facility] LABIA [id number] [place] [address] [place] CONSULT PROGon 04-04-2023 CONSULT PROG Normal [facility] Comprehensive metabolic 2000 panelon 04-04-2023 Albumin [Mass/Vol] 3.0 g/dL Low 3.9-4.9 [facility] Comment on above: Order Comment: Speci men Type: BLOOD SPECIMENOrdering Facility: [facility] Address: [address] [place] [address] Performed By: #### 1 9123-9, 69263-9, 25817-3 ####[facility] LABCLIA [id number] [place] [address] [place] ALP [Catalytic activity/Vol] 128 U/L High 38-113 [facility] Comment on above: Order Comment: Speci men Type: BLOOD SPECIMENOrdering Facility: [facility] Address: [address] [place] [address] Performed By: #### 1 9123-9, 18584-2, 02430-9 ####[facility] LABCLIA [id number] [place] [address] [place] ALT [Catalytic activity/Vol] 16 U/L Normal 10-54 [facility] Comment on above: Order Comment: Speci men Type: BLOOD SPECIMENOrdering Facility: [facility] Address: [address] [place] [address] Performed By: #### 1 9123-9, 74506-1, 86258-3 ####[facility] LABCLIA [id number] [place] [address] [place] Anion gap [Moles/Vol] 11 mmol/L Normal 9-18 [facility] Comment on above: Order Comment: Speci men Type: BLOOD SPECIMENOrdering Facility: [facility] Address: [address] [place] [address] Performed By: #### 1 9123-9, 93500-1, 45918-7 ####[facility] LABCLIA [id number] [address] [place] AST [Catalytic activity/Vol] 26 U/L Normal 14-40 [facility] Comment on above: Order Comment: Speci men Type: BLOOD SPECIMENOrdering Facility: [facility] Address: [address] [address] Result Comment: Resu lts may be falsely increased due to interference from hemolysis. Suggest reorder as clinically indicated. Performed By: #### 1 9123-9, 53339-9, 92005-7 ####[facility] LABCLIA [id number] [place] [address] [place] Bilirubin [Mass/Vol] 1.0 mg/dL Normal 0.2-1.3 [facility] Comment on above: Order Comment: Speci men Type: BLOOD SPECIMENOrdering Facility: [facility] Address: [address] [place] [address] Performed By: #### 1 9123-9, 60095-6, 32861-0 ####[facility] LABCLIA [id number] [place] [address] [place] Calcium [Mass/Vol] 8.8 mg/dL Normal 8.5-10.2 [facility] Comment on above: Order Comment: Speci men Type: BLOOD SPECIMENOrdering Facility: [facility] Address: [address] [place] [address] Performed By: #### 1 9123-9, 45746-5, 79300-0 ####[facility] LABCLIA [id number] [place] [address] [place] Chloride [Moles/Vol] 95 mmol/L Low 97-105 [facility] Comment on above: Order Comment: Speci men Type: BLOOD SPECIMENOrdering Facility: [facility] Address: [address] [address] Performed By: #### 1 9123-9, 12320-0, 97996-4 ####[facility] LABCLIA [id number] [place] [address] [place] CO2 [Moles/Vol] 22 mmol/L Normal 22-30 [facility] Comment on above: Order Comment: Speccate clemons Type: BLOOD SPECIMENOrdering Facility: [facility] Address: [address] [place] [address] Performed By: #### 1 9123-9, 36721-5, 34638-6 ####[facility] LABCLIA [id number] [place] [address] [place] Creatinine [Mass/Vol] 2.00 mg/dL High 0.73-1.22 [facility] Comment on above: Order Comment: Speci men Type: BLOOD SPECIMENOrdering Facility: [facility] Address: [address] [place] [address] Performed By: #### 1 9123-9, 63152-0, 88025-6 ####[facility] LABCLIA [id number] [place] [address] [place] Creatinine and Glomerular filtration rate.predicted panel (S/P/Bld) 36 mL/min/1.73m??? Low >=60 [facility] Comment on above: Order Comment: Reneei kaci Type: BLOOD SPECIMENOrdering Facility: [facility] Address: [address] [place] [address] Result Comment: Syl mated Glomerular Filtration Rate [...] actual GFR. Performed By: #### 1 9123-9, 39812-5, 53997-8 ####[facility] LABCLIA [id number] [place] [address] [place] Glucose [Mass/Vol] 159 mg/dL High 74-99 [facility] Comment on above: Order Comment: Speci men Type: BLOOD SPECIMENOrdering Facility: [facility] Address: [address] [place] [address] Result Comment: The [place] [employer] (ADA) provides guidance for cutoff [...] Standards of Medical Care in Diabetes 2016, [place] [employer]. Diabetes Care. 2016.39(Suppl 1). Performed By: #### 1 9123-9, 32573-7, 43072-7 ####[facility] LABCLIA [id number] [place] [address] [place] Potassium [Moles/Vol] 4.2 mmol/L Normal 3.7-5.1 [facility] Comment on above: Order Comment: Joseline clemons Type: BLOOD SPECIMENOrdering Facility: [facility] Address: [address] [place] [address] Performed By: #### 1 9123-9, 18357-3, 25970-4 ####[facility] LABCLIA [id number] [place] [address] [place] Protein [Mass/Vol] 6.1 g/dL Low 6.3-8.0 [facility] Comment on above: Order Comment: Reneei kaci Type: BLOOD SPECIMENOrdering Facility: [facility] Address: [address] [place] [address] Performed By: #### 1 9123-9, 89029-5, 92479-8 ####[facility] LABCLIA [id number] [place] [address] [place] Sodium [Moles/Vol] 128 mmol/L Low 136-144 [facility] Comment on above: Order Comment: Speci men Type: BLOOD SPECIMENOrdering Facility: [facility] Address: [address] [place] [address] Performed By: #### 1 9123-9, 29271-5, 75669-4 ####[facility] LABCLIA [id number] [place] [address] [place] Urea nitrogen [Mass/Vol] 47 mg/dL High 9-24 [facility] Comment on above: Order Comment: Speci men Type: BLOOD SPECIMENOrdering Facility: [facility] Address: [address] [place] [address] Performed By: #### 1 9123-9, 48646-0, 92303-8 ####[facility] LABCLIA [id number] [place] [address] [place] Magnesium SerPl-ncon 04-04 Magnesium [Mass/Vol] 2.4 mg/dL High 1.7-2.3 [facility] Comment on above: Order Comment: Speci men Type: BLOOD SPECIMENOrdering Facility: [facility] Address: [address] [place] [address] Performed By: #### 1 9123-9, 08362-0, 13847-1 ####[facility] LABCLIA [id number] [place] [address] [place] NT-proBNP SerPl-mCncon 04-04 Natriuretic peptide.B prohormone N-Terminal [Mass/Vol] 5065 pg/mL High <125 [facility] Comment on above: Order Comment: Speci men Type: BLOOD SPECIMENOrdering Facility: [facility] Address: [address] [place] [address] Performed By: #### 1 9123-9, 69474-3, 10881-0 ####[facility] LABCLIA [id number] [place] [address] [place] CASE MANAGEMon 04-03-2023 CASE MANAGEM Normal [facility] CBC panel Auto (Bld)on 04-03 Erythrocyte distribution width (RBC) [Ratio] 20.2 % High 11.5-15.0 [facility] Comment on above: Order Comment: Speci men Type: BLOOD SPECIMENOrdering Facility: [facility] Address: [address] [place] [address] Performed By: #### 5 8410-2 ####[facility] LABIA [id number] [place] [address] [place] Hematocrit (Bld) [Volume fraction] 34.2 % Low 39.0-51.0 [facility] Comment on above: Order Comment: Speci men Type: BLOOD SPECIMENOrdering Facility: [facility] Address: [address] [place] [address] Performed By: #### 5 8410-2 ####[facility] LABIA [id number] [place] [address] [place] Hemoglobin (Bld) [Mass/Vol] 10.3 g/dL Low 13.0-17.0 [facility] Comment on above: Order Comment: Speci men Type: BLOOD SPECIMENOrdering Facility: [facility] Address: [address] [place], [place] [address] Performed By: #### 5 8410-2 ####[facility] LABIA [id number] [place] [address] [place] MCH (RBC) [Entitic mass] 24.4 pg Low 26.0-34.0 [facility] Comment on above: Order Comment: Speci men Type: BLOOD SPECIMENOrdering Facility: [facility] Address: [address] [place] [address] Performed By: #### 5 8410-2 ####[facility] LABIA [id number] [address] STATES OF [facility] MCHC (RBC) [Mass/Vol] 30.1 g/dL Low 30.5-36.0 [facility] Comment on above: Order Comment: Speci men Type: BLOOD SPECIMENOrdering Facility: [facility] Address: [address] [place] [address] Performed By: #### 5 8410-2 ####[facility] LABIA [id number] [address] [place] MCV (RBC) [Entitic vol] 81.0 fL Normal 80.0-100.0 [facility] Comment on above: Order Comment: Speci men Type: BLOOD SPECIMENOrdering Facility: [facility] Address: [address] [place] [address] Performed By: #### 5 8410-2 ####[facility] LABIA [id number] [place] [address] [place] Nucleated RBC (Bld) [#/Vol] 10*3/uL Normal <0.01 [facility] Comment on above: Order Comment: Speci men Type: BLOOD SPECIMENOrdering Facility: [facility] Address: [address] [place], [place] [address] Performed By: #### 5 8410-2 ####[facility] LABIA [id number] [place] [address] [place] Platelet mean volume (Bld) [Entitic vol] 10.3 fL Normal 9.0-12.7 [facility] Comment on above: Order Comment: Speci men Type: BLOOD SPECIMENOrdering Facility: [facility] Address: [address] [place], [place] [address] Performed By: #### 5 8410-2 ####[facility] LABCLIA [id number] [place] [address] [place] Platelets (Bld) [#/Vol] 235 10*3/uL Normal 150-400 [facility] Comment on above: Order Comment: Speci men Type: BLOOD SPECIMENOrdering Facility: [facility] Address: [address] Performed By: #### 5 8410-2 ####[facility] LABCLIA [id number] [place] [address] [place] RBC (Bld) [#/Vol] 4.22 10*6/uL Normal 4.20-6.00 [facility] Comment on above: Order Comment: Speci men Type: BLOOD SPECIMENOrdering Facility: [facility] Address: [address] [place], [place] [address] Performed By: #### 5 8410-2 ####[facility] LABIA [id number] [place] [address] [place] WBC (Bld) [#/Vol] 7.92 10*3/uL Normal 3.70-11.00 [facility] Comment on above: Order Comment: Speci men Type: BLOOD SPECIMENOrdering Facility: [facility] Address: [address] [place], [place] [address] Performed By: #### 5 8410-2 ####[facility] LABIA [id number] [place] [address] [place] Comprehensive metabolic 2000 panelon 04-03-2023 Albumin [Mass/Vol] 3.1 g/dL Low 3.9-4.9 [facility] Comment on above: Order Comment: Speci men Type: BLOOD SPECIMENOrdering Facility: [facility] Address: [address] [place], [place] [address] Performed By: #### 2 4323-8 ####[facility] LABIA [id number] [place] [address] [place] ALP [Catalytic activity/Vol] 127 U/L High 38-113 [facility] Comment on above: Order Comment: Speci men Type: BLOOD SPECIMENOrdering Facility: [facility] Address: [address] [phone] Performed By: #### 2 4323-8 ####[facility] LABCLIA [id number] [place] [address] [place] ALT [Catalytic activity/Vol] 16 U/L Normal 10-54 [facility] Comment on above: Order Comment: Speci men Type: BLOOD SPECIMENOrdering Facility: [facility] Address: [address] Performed By: #### 2 4323-8 ####[facility] LABCLIA [id number] [place] [address] [place] Anion gap [Moles/Vol] 10 mmol/L Normal 9-18 [facility] Comment on above: Order Comment: Speci men Type: BLOOD SPECIMENOrdering Facility: [facility] Address: [address] Performed By: #### 2 4323-8 ####[facility] LABCLIA [id number] [place] [address] [place] AST [Catalytic activity/Vol] 16 U/L Normal 14-40 [facility] Comment on above: Order Comment: Speci men Type: BLOOD SPECIMENOrdering Facility: [facility] Address: [address] Performed By: #### 2 4323-8 ####[facility] LABCLIA [id number] [place] [address] [place] Bilirubin [Mass/Vol] 1.2 mg/dL Normal 0.2-1.3 [facility] Comment on above: Order Comment: Speci men Type: BLOOD SPECIMENOrdering Facility: [facility] Address: [address] Performed By: #### 2 4323-8 ####[facility] LABCLIA [id number] [place] [address] [place] Calcium [Mass/Vol] 8.8 mg/dL Normal 8.5-10.2 [facility] Comment on above: Order Comment: Speci men Type: BLOOD SPECIMENOrdering Facility: [facility] Address: [address] [address] Performed By: #### 2 4323-8 ####[facility] LABCLIA [id number] [place] [address] [place] Chloride [Moles/Vol] 96 mmol/L Low 97-105 [facility] Comment on above: Order Comment: Speci men Type: BLOOD SPECIMENOrdering Facility: [facility] Address: [address] [place] [address] Performed By: #### 2 4323-8 ####[facility] LABCLIA [id number] [place] [address] [place] CO2 [Moles/Vol] 23 mmol/L Normal 22-30 [facility] Comment on above: Order Comment: Speci men Type: BLOOD SPECIMENOrdering Facility: [facility] Address: [address] [place] [address] Performed By: #### 2 4323-8 ####[facility] LABCLIA [id number] [place] [address] [place] Creatinine [Mass/Vol] 1.96 mg/dL High 0.73-1.22 [facility] Comment on above: Order Comment: Speci men Type: BLOOD SPECIMENOrdering Facility: [facility] Address: [address] [place], [place] [address] Performed By: #### 2 4323-8 ####[facility] LABCLIA [id number] [place] [address] [place] Creatinine and Glomerular filtration rate.predicted panel (S/P/Bld) 37 mL/min/1.73m??? Low >=60 [facility] Comment on above: Order Comment: Speci men Type: BLOOD SPECIMENOrdering Facility: [facility] Address: [address] [phone] Result Comment: Syl mated Glomerular Filtration Rate [...] actual GFR. Performed By: #### 2 4323-8 ####[facility] LABIA [id number] [place] [address] [place] Glucose [Mass/Vol] 168 mg/dL High 74-99 [facility] Comment on above: Order Comment: Speci men Type: BLOOD SPECIMENOrdering Facility: [facility] Address: [address] [place] [address] Result Comment: The [place] [employer] (ADA) provides guidance for cutoff [...] Standards of Medical Care in Diabetes 2016, [place] [employer]. Diabetes Care. 2016.39(Suppl 1). Performed By: #### 2 4323-8 ####[facility] LABIA [id number] [place] [address] [place] Potassium [Moles/Vol] 4.0 mmol/L Normal 3.7-5.1 [facility] Comment on above: Order Comment: Joseline clemons Type: BLOOD SPECIMENOrdering Facility: [facility] Address: [address] [phone] Performed By: #### 2 4323-8 ####[facility] LABCLIA [id number] [place] [address] [place] Protein [Mass/Vol] 6.1 g/dL Low 6.3-8.0 [facility] Comment on above: Order Comment: Speci men Type: BLOOD SPECIMENOrdering Facility: [facility] Address: [address] [address] Performed By: #### 2 4323-8 ####[facility] LABCLIA [id number] [place] [address] [place] Sodium [Moles/Vol] 129 mmol/L Low 136-144 [facility] Comment on above: Order Comment: Speci men Type: BLOOD SPECIMENOrdering Facility: [facility] Address: [address] [place] [address] Performed By: #### 2 4323-8 ####[facility] LABIA [id number] [place] [address] [place] Urea nitrogen [Mass/Vol] 49 mg/dL High 9-24 [facility] Comment on above: Order Comment: Speci men Type: BLOOD SPECIMENOrdering Facility: [facility] Address: [address] [place] [address] Performed By: #### 2 4323-8 ####[facility] LABCLIA [id number] [place] [address] [place] CBC panel Auto (Bld)on 04-02 Erythrocyte distribution width (RBC) [Ratio] 20.2 % High 11.5-15.0 [facility] Comment on above: Order Comment: Speci men Type: BLOOD SPECIMENOrdering Facility: [facility] Address: [address] [place] [address] Performed By: #### 5 8410-2 ####[facility] LABCLIA [id number] [place] [address] [place] Hematocrit (Bld) [Volume fraction] 32.1 % Low 39.0-51.0 [facility] Comment on above: Order Comment: Speci men Type: BLOOD SPECIMENOrdering Facility: [facility] Address: [address] [place] [address] Performed By: #### 5 8410-2 ####[facility] LABCLIA [id number] [place] [address] [place] Hemoglobin (Bld) [Mass/Vol] 10.1 g/dL Low 13.0-17.0 [facility] Comment on above: Order Comment: Speci men Type: BLOOD SPECIMENOrdering Facility: [facility] Address: [address] [place] [address] Performed By: #### 5 8410-2 ####[facility] LABCLIA [id number] [place] [address] [place] MCH (RBC) [Entitic mass] 24.6 pg Low 26.0-34.0 [facility] Comment on above: Order Comment: Speci men Type: BLOOD SPECIMENOrdering Facility: [facility] Address: [address] [place] [address] Performed By: #### 5 8410-2 ####[facility] LABIA [id number] [place] [address] [place] MCHC (RBC) [Mass/Vol] 31.5 g/dL Normal 30.5-36.0 [facility] Comment on above: Order Comment: Speci men Type: BLOOD SPECIMENOrdering Facility: [facility] Address: [address] [place] [address] Performed By: #### 5 8410-2 ####[facility] LABIA [id number] [place] [address] [place] MCV (RBC) [Entitic vol] 78.1 fL Low 80.0-100.0 [facility] Comment on above: Order Comment: Speci men Type: BLOOD SPECIMENOrdering Facility: [facility] Address: [address] [place] [address] Performed By: #### 5 8410-2 ####[facility] LABIA [id number] [place] [address] [place] Nucleated RBC (Bld) [#/Vol] 10*3/uL Normal <0.01 [facility] Comment on above: Order Comment: Speci men Type: BLOOD SPECIMENOrdering Facility: [facility] Address: [address] Performed By: #### 5 8410-2 ####[facility] LABIA [id number] [place] [address] [place] Platelet mean volume (Bld) [Entitic vol] 9.8 fL Normal 9.0-12.7 [facility] Comment on above: Order Comment: Speci men Type: BLOOD SPECIMENOrdering Facility: [facility] Address: [address] Performed By: #### 5 8410-2 ####[facility] LABIA [id number] [place] [address] [place] Platelets (Bld) [#/Vol] 222 10*3/uL Normal 150-400 [facility] Comment on above: Order Comment: Speci men Type: BLOOD SPECIMENOrdering Facility: [facility] Address: [address] [place] [address] Performed By: #### 5 8410-2 ####[facility] LABIA [id number] [place] [address] [place] RBC (Bld) [#/Vol] 4.11 10*6/uL Low 4.20-6.00 [facility] Comment on above: Order Comment: Speci men Type: BLOOD SPECIMENOrdering Facility: [facility] Address: [address] Performed By: #### 5 8410-2 ####[facility] LABCLIA [id number] [place] [address] [place] WBC (Bld) [#/Vol] 8.44 10*3/uL Normal 3.70-11.00 [facility] Comment on above: Order Comment: Speci men Type: BLOOD SPECIMENOrdering Facility: [facility] Address: [address] [place] [address] Performed By: #### 5 8410-2 ####[facility] LABCLIA [id number] [place] [address] [place] CONSULT PROGon 04-02-2023 CONSULT PROG Normal [facility] Comprehensive metabolic 2000 panelon 04-02-2023 Albumin [Mass/Vol] 3.3 g/dL Low 3.9-4.9 [facility] Comment on above: Order Comment: Speci men Type: BLOOD SPECIMENOrdering Facility: [facility] Address: [address] [place], [place] [address] Performed By: #### 1 9123-9, 31354-0 ####[facility] LABCLIA [id number] [place] [address] [place] ALP [Catalytic activity/Vol] 133 U/L High 38-113 [facility] Comment on above: Order Comment: Speci men Type: BLOOD SPECIMENOrdering Facility: [facility] Address: [address] [place], [place] [address] Performed By: #### 1 9123-9, 65960-3 ####[facility] LABCLIA [id number] [place] [address] [place] ALT [Catalytic activity/Vol] 16 U/L Normal 10-54 [facility] Comment on above: Order Comment: Speci men Type: BLOOD SPECIMENOrdering Facility: [facility] Address: [address] [place], [place] [address] Performed By: #### 1 9123-9, 54512-7 ####[facility] LABCLIA [id number] [place] [address] [place] Anion gap [Moles/Vol] 14 mmol/L Normal 9-18 [facility] Comment on above: Order Comment: Speci men Type: BLOOD SPECIMENOrdering Facility: [facility] Address: [address] [place], [place] [address] Performed By: #### 1 9123-9, 46154-7 ####[facility] LABCLIA [id number] [place] [address] [place] AST [Catalytic activity/Vol] 17 U/L Normal 14-40 [facility] Comment on above: Order Comment: Speci men Type: BLOOD SPECIMENOrdering Facility: [facility] Address: [address] [place], [place] [address] Performed By: #### 1 9123-9, 71933-3 ####[facility] LABCLIA [id number] [place] [address] [place] Bilirubin [Mass/Vol] 1.6 mg/dL High 0.2-1.3 [facility] Comment on above: Order Comment: Speci men Type: BLOOD SPECIMENOrdering Facility: [facility] Address: [address] [place], [place] [address] Performed By: #### 1 9123-9, 02565-5 ####[facility] LABCLIA [id number] [place] [address] [place] Calcium [Mass/Vol] 9.1 mg/dL Normal 8.5-10.2 [facility] Comment on above: Order Comment: Speci men Type: BLOOD SPECIMENOrdering Facility: [facility] Address: [address] [place], [place] [address] Performed By: #### 1 9123-9, 64721-9 ####[facility] LABCLIA [id number] [place] [address] [place] Chloride [Moles/Vol] 96 mmol/L Low 97-105 [facility] Comment on above: Order Comment: Speci men Type: BLOOD SPECIMENOrdering Facility: [facility] Address: [address] Performed By: #### 1 9123-9, ####[facility] LABCLIA [id number] [place] [address] [place] CO2 [Moles/Vol] 21 mmol/L Low 22-30 [facility] Comment on above: Order Comment: Speci men Type: BLOOD SPECIMENOrdering Facility: [facility] Address: [address] [place] [address] Performed By: #### 1 9123-9, ####[facility] LABCLIA [id number] [place] [address] [place] Creatinine [Mass/Vol] 2.07 mg/dL High 0.73-1.22 [facility] Comment on above: Order Comment: Speci men Type: BLOOD SPECIMENOrdering Facility: [facility] Address: [address] [place], [place] [address] Performed By: #### 1 9123-9, ####[facility] LABIA [id number] [place] [address] [place] Creatinine and Glomerular filtration rate.predicted panel (S/P/Bld) 35 mL/min/1.73m??? Low >=60 [facility] Comment on above: Order Comment: Speci men Type: BLOOD SPECIMENOrdering Facility: [facility] Address: [address] [place] [address] Result Comment: Syl mated Glomerular Filtration Rate [...] actual GFR. Performed By: #### 1 9123-9, 13961-5 ####[facility] LABIA [id number] [place] [address] [place] Glucose [Mass/Vol] 155 mg/dL High 74-99 [facility] Comment on above: Order Comment: Speci men Type: BLOOD SPECIMENOrdering Facility: [facility] Address: [address] [address] Result Comment: The [place] [employer] (ADA) provides guidance for cutoff [...] Standards of Medical Care in Diabetes 2016, [place] [employer]. Diabetes Care. 2016.39(Suppl 1). Performed By: #### 1 9123-9, 32999-2 ####[facility] LABIA [id number] [place] [address] [place] Potassium [Moles/Vol] 4.0 mmol/L Normal 3.7-5.1 [facility] Comment on above: Order Comment: Speci men Type: BLOOD SPECIMENOrdering Facility: [facility] Address: [address] [id number] Performed By: #### 1 9123-9, 75584-1 ####[facility] LABIA [id number] [place] [address] [place] Protein [Mass/Vol] 6.5 g/dL Normal 6.3-8.0 [facility] Comment on above: Order Comment: Speci men Type: BLOOD SPECIMENOrdering Facility: [facility] Address: [address] [place] [address] Performed By: #### 1 9123-9, 11756-3 ####[facility] LABCLIA [id number] [place] [address] [place] Sodium [Moles/Vol] 131 mmol/L Low 136-144 [facility] Comment on above: Order Comment: Speci men Type: BLOOD SPECIMENOrdering Facility: [facility] Address: [address] [place] [address] Performed By: #### 1 9123-9, 20643-0 ####[facility] LABCLIA [id number] [place] [address] [place] Urea nitrogen [Mass/Vol] 50 mg/dL High 9-24 [facility] Comment on above: Order Comment: Speci men Type: BLOOD SPECIMENOrdering Facility: [facility] Address: [address] [place] [address] Performed By: #### 1 9123-9, 47559-7 ####[facility] LABIA [id number] [place] [address] [place] Magnesium SerPl-mCncon 04-02 Magnesium [Mass/Vol] 2.3 mg/dL Normal 1.7-2.3 [facility] Comment on above: Order Comment: Speci men Type: BLOOD SPECIMENOrdering Facility: [facility] Address: [address] [place] [address] Performed By: #### 1 9123-9, 15463-2 ####[facility] LABCLIA [id number] [place] [address] [place] XR CHEST 2V FRONTAL/LATon XR CHEST 2V FRONTAL/LAT Normal [facility] CBC panel Auto (Bld)on 04-01 Erythrocyte distribution width (RBC) [Ratio] 20.5 % High 11.5-15.0 [facility] Comment on above: Order Comment: Speci men Type: BLOOD SPECIMENOrdering Facility: [facility] Address: [address] [address] Performed By: #### 5 8410-2 ####[facility] LABIA [id number] [address] [place] Hematocrit (Bld) [Volume fraction] 34.3 % Low 39.0-51.0 [facility] Comment on above: Order Comment: Speci men Type: BLOOD SPECIMENOrdering Facility: [facility] Address: [address] Performed By: #### 5 8410-2 ####[facility] LABIA [id number] [place] [address] [place] Hemoglobin (Bld) [Mass/Vol] 10.5 g/dL Low 13.0-17.0 [facility] Comment on above: Order Comment: Speci men Type: BLOOD SPECIMENOrdering Facility: [facility] Address: [address] Performed By: #### 5 8410-2 ####[facility] LABIA [id number] [place] [address] [place] MCH (RBC) [Entitic mass] 24.7 pg Low 26.0-34.0 [facility] Comment on above: Order Comment: Speci men Type: BLOOD SPECIMENOrdering Facility: [facility] Address: [address] Performed By: #### 5 8410-2 ####[facility] LABIA [id number] [place] [address] [place] MCHC (RBC) [Mass/Vol] 30.6 g/dL Normal 30.5-36.0 [facility] Comment on above: Order Comment: Speci men Type: BLOOD SPECIMENOrdering Facility: [facility] Address: [address] Performed By: #### 5 8410-2 ####[facility] LABIA [id number] [place] [address] [place] MCV (RBC) [Entitic vol] 80.7 fL Normal 80.0-100.0 [facility] Comment on above: Order Comment: Speci men Type: BLOOD SPECIMENOrdering Facility: [facility] Address: [address] [place], [place] [address] Performed By: #### 5 8410-2 ####[facility] LABIA [id number] [place] [address] [place] Nucleated RBC (Bld) [#/Vol] 10*3/uL Normal <0.01 [facility] Comment on above: Order Comment: Speci men Type: BLOOD SPECIMENOrdering Facility: [facility] Address: [address] [place] [address] Performed By: #### 5 8410-2 ####[facility] [id number] [place] [address] [place] Platelet mean volume (Bld) [Entitic vol] 9.8 fL Normal 9.0-12.7 [facility] Comment on above: Order Comment: Speci men Type: BLOOD SPECIMENOrdering Facility: [facility] Address: [address] [place], [place] [address] Performed By: #### 5 8410-2 ####[facility] LABIA [id number] [place] [address] [place] Platelets (Bld) [#/Vol] 215 10*3/uL Normal 150-400 [facility] Comment on above: Order Comment: Speci men Type: BLOOD SPECIMENOrdering Facility: [facility] Address: [address] [place], [place] [address] Performed By: #### 5 8410-2 ####[facility] LABIA [id number] [id number] [address] [place] RBC (Bld) [#/Vol] 4.25 10*6/uL Normal 4.20-6.00 [facility] Comment on above: Order Comment: Speci men Type: BLOOD SPECIMENOrdering Facility: [facility] Address: [address] [place] [address] Performed By: #### 5 8410-2 ####[facility] LABCLIA [id number] [address] STATES OF [facility] WBC (Bld) [#/Vol] 7.96 10*3/uL Normal 3.70-11.00 [facility] Comment on above: Order Comment: Speci men Type: BLOOD SPECIMENOrdering Facility: [facility] Address: [address] [place] [address] Performed By: #### 5 8410-2 ####[facility] LABCLIA [id number] [address] OF [facility] CONSULT PROGon 04-01-2023 CONSULT PROG Normal [facility] Comprehensive metabolic 2000 panelon 04-01-2023 Albumin [Mass/Vol] 3.4 g/dL Low 3.9-4.9 [facility] Comment on above: Order Comment: Speci men Type: BLOOD SPECIMENOrdering Facility: [facility] Address: [address] [place], [place] [address] Performed By: #### 2 4323-8 ####[facility] LABCLIA [id number] [place] [address] [place] ALP [Catalytic activity/Vol] 139 U/L High 38-113 [facility] Comment on above: Order Comment: Speci men Type: BLOOD SPECIMENOrdering Facility: [facility] Address: [address] [place], [place] [address] Performed By: #### 2 4323-8 ####[facility] LABCLIA [id number] [place] [address] [place] ALT [Catalytic activity/Vol] 21 U/L Normal 10-54 [facility] Comment on above: Order Comment: Speci men Type: BLOOD SPECIMENOrdering Facility: [facility] Address: [address] Performed By: #### 2 4323-8 ####[facility] LABCLIA [id number] [place] [address] [place] Anion gap [Moles/Vol] 14 mmol/L Normal 9-18 [facility] Comment on above: Order Comment: Speci men Type: BLOOD SPECIMENOrdering Facility: [facility] Address: [address] [address] Performed By: #### 2 4323-8 ####[facility] LABCLIA [id number] [place] [address] [place] AST [Catalytic activity/Vol] 18 U/L Normal 14-40 [facility] Comment on above: Order Comment: Speci men Type: BLOOD SPECIMENOrdering Facility: [facility] Address: [address] [place], [place] [address] Performed By: #### 2 4323-8 ####[facility] LABCLIA [id number] [place] [address] [place] Bilirubin [Mass/Vol] 1.9 mg/dL High 0.2-1.3 [facility] Comment on above: Order Comment: Speci men Type: BLOOD SPECIMENOrdering Facility: [facility] Address: [address] Performed By: #### 2 4323-8 ####[facility] LABCLIA [id number] [place] [address] [place] Calcium [Mass/Vol] 9.1 mg/dL Normal 8.5-10.2 [facility] Comment on above: Order Comment: Speci men Type: BLOOD SPECIMENOrdering Facility: [facility] Address: [address] Performed By: #### 2 4323-8 ####[facility] LABCLIA [id number] [place] [address] [place] Chloride [Moles/Vol] 95 mmol/L Low 97-105 [facility] Comment on above: Order Comment: Speci men Type: BLOOD SPECIMENOrdering Facility: [facility] Address: [address] [place] [address] Performed By: #### 2 4323-8 ####[facility] LABCLIA [id number] [place] [address] [place] CO2 [Moles/Vol] 22 mmol/L Normal 22-30 [facility] Comment on above: Order Comment: Speci men Type: BLOOD SPECIMENOrdering Facility: [facility] Address: [address] [place] [address] Performed By: #### 2 4323-8 ####[facility] LABCLIA [id number] [address] STATES OF [facility] Creatinine [Mass/Vol] 2.11 mg/dL High 0.73-1.22 [facility] Comment on above: Order Comment: Speci men Type: BLOOD SPECIMENOrdering Facility: [facility] Address: [address] [place] [address] Performed By: #### 2 4323-8 ####[facility] LABIA [id number] [address] OF [facility] Creatinine and Glomerular filtration rate.predicted panel (S/P/Bld) 34 mL/min/1.73m??? Low >=60 [facility] Comment on above: Order Comment: Speci men Type: BLOOD SPECIMENOrdering Facility: [facility] Address: [address] [place] [address] Result Comment: Syl mated Glomerular Filtration Rate [...] actual GFR. Performed By: #### 2 4323-8 ####[facility] LABCLIA [id number] [place] [address] [place] Glucose [Mass/Vol] 188 mg/dL High 74-99 [facility] Comment on above: Order Comment: Speci men Type: BLOOD SPECIMENOrdering Facility: [facility] Address: [address] [place] [id number] Result Comment: The [place] [employer] (ADA) provides guidance for cutoff [...] Standards of Medical Care in Diabetes 2016, [place] [employer]. Diabetes Care. 2016.39(Suppl 1). Performed By: #### 2 4323-8 ####[facility] LABCLIA [id number] [place] [address] [place] Potassium [Moles/Vol] 4.3 mmol/L Normal 3.7-5.1 [facility] Comment on above: Order Comment: Speci men Type: BLOOD SPECIMENOrdering Facility: [facility] Address: [address] [place] [address] Performed By: #### 2 4323-8 ####[facility] LABCLIA [id number] [place] [id number] [place] Protein [Mass/Vol] 6.2 g/dL Low 6.3-8.0 [facility] Comment on above: Order Comment: Speci men Type: BLOOD SPECIMENOrdering Facility: [facility] Address: [address] [place] [address] Performed By: #### 2 4323-8 ####[facility] LABCLIA [id number] [place] [address] [place] Sodium [Moles/Vol] 131 mmol/L Low 136-144 [facility] Comment on above: Order Comment: Speci men Type: BLOOD SPECIMENOrdering Facility: [facility] Address: [address] [place] [address] Performed By: #### 2 4323-8 ####[facility] LABCLIA [id number] [place] [address] [place] Urea nitrogen [Mass/Vol] 51 mg/dL High 9-24 [facility] Comment on above: Order Comment: Speci men Type: BLOOD SPECIMENOrdering Facility: [facility] Address: [address] [place] [address] Performed By: #### 2 4323-8 ####[facility] LABIA [id number] [place] [address] [place] CASE MANAGEMon 03-31-2023 CASE MANAGEM Normal [facility] CBC panel Auto (Bld)on 03-31 Erythrocyte distribution width (RBC) [Ratio] 20.6 % High 11.5-15.0 [facility] Comment on above: Order Comment: Speci men Type: BLOOD SPECIMENOrdering Facility: [facility] Address: [address] Performed By: #### 5 8410-2 ####[facility] LABCLIA [id number] [place] [address] [place] Hematocrit (Bld) [Volume fraction] 35.6 % Low 39.0-51.0 [facility] Comment on above: Order Comment: Speci men Type: BLOOD SPECIMENOrdering Facility: [facility] Address: [address] [place], [place] [address] Performed By: #### 5 8410-2 ####[facility] LABIA [id number] [place] [address] [place] Hemoglobin (Bld) [Mass/Vol] 11.1 g/dL Low 13.0-17.0 [facility] Comment on above: Order Comment: Speci men Type: BLOOD SPECIMENOrdering Facility: [facility] Address: [address] [place], [place] [address] Performed By: #### 5 8410-2 ####[facility] LABIA [id number] [place] [address] [place] MCH (RBC) [Entitic mass] 25.0 pg Low 26.0-34.0 [facility] Comment on above: Order Comment: Speci men Type: BLOOD SPECIMENOrdering Facility: [facility] Address: [address] [place], [place] [address] Performed By: #### 5 8410-2 ####[facility] LABIA [id number] [place] [address] [place] MCHC (RBC) [Mass/Vol] 31.2 g/dL Normal 30.5-36.0 [facility] Comment on above: Order Comment: Speci men Type: BLOOD SPECIMENOrdering Facility: [facility] Address: [address] [place], [place] [address] Performed By: #### 5 8410-2 ####[facility] LABIA [id number] [place] [address] [place] MCV (RBC) [Entitic vol] 80.2 fL Normal 80.0-100.0 [facility] Comment on above: Order Comment: Speci men Type: BLOOD SPECIMENOrdering Facility: [facility] Address: [address] [place], [place] [address] Performed By: #### 5 8410-2 ####[facility] LABIA [id number] [place] [address] [place] Nucleated RBC (Bld) [#/Vol] 0.03 10*3/uL High <0.01 [facility] Comment on above: Order Comment: Speci men Type: BLOOD SPECIMENOrdering Facility: [facility] Address: [address] [place] [address] Performed By: #### 5 8410-2 ####[facility] LABCLIA [id number] [place] [address] [place] Platelet mean volume (Bld) [Entitic vol] 9.7 fL Normal 9.0-12.7 [facility] Comment on above: Order Comment: Speci men Type: BLOOD SPECIMENOrdering Facility: [facility] Address: [address] [place] [address] Performed By: #### 5 8410-2 ####[facility] LABIA [id number] [place] [address] [place] Platelets (Bld) [#/Vol] 251 10*3/uL Normal 150-400 [facility] Comment on above: Order Comment: Speci men Type: BLOOD SPECIMENOrdering Facility: [facility] Address: [address] [place] [address] Performed By: #### 5 8410-2 ####[facility] LABIA [id number] [place] [address] [place] RBC (Bld) [#/Vol] 4.44 10*6/uL Normal 4.20-6.00 [facility] Comment on above: Order Comment: Speci men Type: BLOOD SPECIMENOrdering Facility: [facility] Address: [address] [place], [place] [address] Performed By: #### 5 8410-2 ####[facility] LABCLIA [id number] [place] [address] [place] WBC (Bld) [#/Vol] 7.47 10*3/uL Normal 3.70-11.00 [facility] Comment on above: Order Comment: Speci men Type: BLOOD SPECIMENOrdering Facility: [facility] Address: [address] [place] [address] Performed By: #### 5 8410-2 ####[facility] LABCLIA [id number] [place] [address] [place] CONSULT PROGon 03-31-2023 CONSULT PROG Normal [facility] Comprehensive metabolic 2000 panelon 03-31-2023 Albumin [Mass/Vol] 3.5 g/dL Low 3.9-4.9 [facility] Comment on above: Order Comment: Speci men Type: BLOOD SPECIMENOrdering Facility: [facility] Address: [address] [place] [address] Performed By: #### 2 4323-8 ####[facility] LABCLIA [id number] [place] [address] [place] ALP [Catalytic activity/Vol] 139 U/L High 38-113 [facility] Comment on above: Order Comment: Speci men Type: BLOOD SPECIMENOrdering Facility: [facility] Address: [address] [place] [address] Performed By: #### 2 4323-8 ####[facility] LABCLIA [id number] [place] [address] [place] ALT [Catalytic activity/Vol] 20 U/L Normal 10-54 [facility] Comment on above: Order Comment: Speci men Type: BLOOD SPECIMENOrdering Facility: [facility] Address: [address] [place] [address] Performed By: #### 2 4323-8 ####[facility] LABCLIA [id number] [place] [address] [place] Anion gap [Moles/Vol] 12 mmol/L Normal 9-18 [facility] Comment on above: Order Comment: Speci men Type: BLOOD SPECIMENOrdering Facility: [facility] Address: [address] Performed By: #### 2 4323-8 ####[facility] LABCLIA [id number] [place] [address] [place] AST [Catalytic activity/Vol] 16 U/L Normal 14-40 [facility] Comment on above: Order Comment: Speci men Type: BLOOD SPECIMENOrdering Facility: [facility] Address: [address] Performed By: #### 2 4323-8 ####[facility] LABCLIA [id number] [place] [address] [place] Bilirubin [Mass/Vol] 2.0 mg/dL High 0.2-1.3 [facility] Comment on above: Order Comment: Speci men Type: BLOOD SPECIMENOrdering Facility: [facility] Address: [address] Performed By: #### 2 4323-8 ####[facility] LABCLIA [id number] [place] [address] [place] Calcium [Mass/Vol] 9.3 mg/dL Normal 8.5-10.2 [facility] Comment on above: Order Comment: Speci men Type: BLOOD SPECIMENOrdering Facility: [facility] Address: [address] Performed By: #### 2 4323-8 ####[facility] LABCLIA [id number] [place] [address] [place] Chloride [Moles/Vol] 96 mmol/L Low 97-105 [facility] Comment on above: Order Comment: Speci men Type: BLOOD SPECIMENOrdering Facility: [facility] Address: [address] Performed By: #### 2 4323-8 ####[facility] LABCLIA [id number] [place] [address] [place] CO2 [Moles/Vol] 24 mmol/L Normal 22-30 [facility] Comment on above: Order Comment: Speci men Type: BLOOD SPECIMENOrdering Facility: [facility] Address: [address] [place] [address] Performed By: #### 2 4323-8 ####[facility] [id number] [address] [place] Creatinine [Mass/Vol] 2.17 mg/dL High 0.73-1.22 [facility] Comment on above: Order Comment: Speci men Type: BLOOD SPECIMENOrdering Facility: [facility] Address: [address] [place] [address] Performed By: #### 2 4323-8 ####[facility] [id number] [address] STATES OF [facility] Creatinine and Glomerular filtration rate.predicted panel (S/P/Bld) 33 mL/min/1.73m??? Low >=60 [facility] Comment on above: Order Comment: Speci men Type: BLOOD SPECIMENOrdering Facility: [facility] Address: [address] [place] [address] Result Comment: Syl mated Glomerular Filtration Rate [...] actual GFR. Performed By: #### 2 4323-8 ####[facility] [id number] [place] [address] [place] Glucose [Mass/Vol] 186 mg/dL High 74-99 [facility] Comment on above: Order Comment: Speci men Type: BLOOD SPECIMENOrdering Facility: [facility] Address: [address] [place] [address] Result Comment: The [place] Diabetes [employer] (ADA) provides guidance for cutoff [...] Standards of Medical Care in Diabetes 2016, [place] [employer]. Diabetes Care. 2016.39(Suppl 1). Performed By: #### 2 4323-8 ####[facility] LABIA [id number] [place] [address] [place] Potassium [Moles/Vol] 4.4 mmol/L Normal 3.7-5.1 [facility] Comment on above: Order Comment: Speci men Type: BLOOD SPECIMENOrdering Facility: [facility] Address: [address] [place] [address] Performed By: #### 2 4323-8 ####[facility] LABIA [id number] [place] [address] [place] Protein [Mass/Vol] 6.3 g/dL Normal 6.3-8.0 [facility] Comment on above: Order Comment: Speci men Type: BLOOD SPECIMENOrdering Facility: [facility] Address: [address] [place] [address] Performed By: #### 2 4323-8 ####[facility] LABIA [id number] [place] [address] [place] Sodium [Moles/Vol] 132 mmol/L Low 136-144 [facility] Comment on above: Order Comment: Speci men Type: BLOOD SPECIMENOrdering Facility: [facility] Address: [address] [place] [address] Performed By: #### 2 4323-8 ####[facility] LABCLIA [id number] [place] [address] [place] Urea nitrogen [Mass/Vol] 50 mg/dL High 9-24 [facility] Comment on above: Order Comment: Speci men Type: BLOOD SPECIMENOrdering Facility: [facility] Address: [address] [place] [address] Performed By: #### 2 4323-8 ####[facility] LABCLIA [id number] [place] [address] [place] ECG COMPLETEon 03-31-2023 ECG COMPLETE Normal [facility] PT EDon 03-31-2023 PT ED Normal [facility] SURGICAL PATHOLOGYon 023 CASE REPORT Normal [facility] Comment on above: Order Comment: Speci men Type: DEVICE SPECIMENOrdering Facility: [facility] Address: [address] [place] [address] Result Comment: Surg ical Pathology Report Case: [id number] Provider: Flor Vitale MD Collected: 03/31/2023 03:43 PMOrdering Location: [facility] Received: 03/31/2023 06:17 PMPathologist: Nichol Best MDSpecimen: HARDWARE, ICD Performed By: #### S ####[facility] LABCLIA [id number] [address] [place] CLINICAL HISTORY Normal [facility] Comment on above: Order Comment: Speci men Type: DEVICE SPECIMENOrdering Facility: [facility] Address: [address] [place] [address] Result Comment: Pre- op diagnosis:Acute decompensated heart failure (HCC) [I50.9]Ischemic cardiomyopathy [I25.5] Performed By: #### S ####[facility] LABCLIA [id number] [address] [place] FINAL DIAGNOSIS Normal [facility] Comment on above: Order Comment: Speci men Type: DEVICE SPECIMENOrdering Facility: [facility] Address: [address] [place] [address] Result Comment: A. I mplantable cardioverter defibrillator, removal:- Pulse generator (gross examination only).CT/TLA 04/03/2023 Performed By: #### S ####[facility] LABCLIA [id number] [address] FINAL PERFORMING LAB [facility] Comment on above: Order Comment: Speci men Type: DEVICE SPECIMENOrdering Facility: [facility] Address: [address] [place] [address] Result Comment: Diag nostic interpretation performed at [facility], [address] [place] [address] CLIA# [id number] Director: Jarrod Izquierdo M.D. Performed By: #### S ####[facility] LABIA [id number] [address] GROSS DESCRIPTION A. HARDWARE Normal [facility] Comment on above: Order Comment: Speci men Type: DEVICE SPECIMENOrdering Facility: [facility] Address: [address] [place] [address] Result Comment: Rece ived in formalin labeled with hardware, ICD is a grossly unremarkable pulse generator battery measuring 7.0 x 5.5 x 1.1 cm. There are no defects present. Inscribed on the device is [employer] Dynagen ICD model D150 type VVIR SN [id number] . There is no attached soft tissue present. No sections are submitted. The specimen is reviewed with Dr. Best.TLA April 03, 2023 12:57 PMGross examination performed at [facility], [facility] [place] [address] Performed By: #### S ####[facility] LABCLIA [id number] [address] [place] CBC panel Auto (Bld)on 03-30 Erythrocyte distribution width (RBC) [Ratio] 20.5 % High 11.5-15.0 [facility] Comment on above: Order Comment: Speci men Type: BLOOD SPECIMENOrdering Facility: [facility] Address: [address] [place] [address] Performed By: #### 5 8410-2 ####[facility] [id number] [address] [place] Hematocrit (Bld) [Volume fraction] 35.3 % Low 39.0-51.0 [facility] Comment on above: Order Comment: Speci men Type: BLOOD SPECIMENOrdering Facility: [facility] Address: [address] [place] [address] Performed By: #### 5 8410-2 ####[facility] [id number] [address] [place] Hemoglobin (Bld) [Mass/Vol] 11.0 g/dL Low 13.0-17.0 [facility] Comment on above: Order Comment: Speci men Type: BLOOD SPECIMENOrdering Facility: [facility] Address: [address] [place] [address] Performed By: #### 5 8410-2 ####[facility] [id number] [place] [address] [place] MCH (RBC) [Entitic mass] 24.8 pg Low 26.0-34.0 [facility] Comment on above: Order Comment: Speci men Type: BLOOD SPECIMENOrdering Facility: [facility] Address: [address] [place], [place] [address] Performed By: #### 5 8410-2 ####[facility] LABIA [id number] [address] [place] MCHC (RBC) [Mass/Vol] 31.2 g/dL Normal 30.5-36.0 [facility] Comment on above: Order Comment: Speci men Type: BLOOD SPECIMENOrdering Facility: [facility] Address: [address] [place], [place] [address] Performed By: #### 5 8410-2 ####[facility] LABIA [id number] [place] [address] [place] MCV (RBC) [Entitic vol] 79.5 fL Low 80.0-100.0 [facility] Comment on above: Order Comment: Speci men Type: BLOOD SPECIMENOrdering Facility: [facility] Address: [address] [place], [place] [address] Performed By: #### 5 8410-2 ####[facility] LABIA [id number] [place] [address] [place] Nucleated RBC (Bld) [#/Vol] 0.02 10*3/uL High <0.01 [facility] Comment on above: Order Comment: Speci men Type: BLOOD SPECIMENOrdering Facility: [facility] Address: [address] [place], [place] [address] Performed By: #### 5 8410-2 ####[facility] LABIA [id number] [place] [address] [place] Platelet mean volume (Bld) [Entitic vol] 9.6 fL Normal 9.0-12.7 [facility] Comment on above: Order Comment: Speci men Type: BLOOD SPECIMENOrdering Facility: [facility] Address: [address] [place], [place] [address] Performed By: #### 5 8410-2 ####[facility] LABIA [id number] [place] [address] [place] Platelets (Bld) [#/Vol] 243 10*3/uL Normal 150-400 [facility] Comment on above: Order Comment: Speci men Type: BLOOD SPECIMENOrdering Facility: [facility] Address: [address] [place], [place] [address] Performed By: #### 5 8410-2 ####[facility] LABIA [id number] [place] [address] [place] RBC (Bld) [#/Vol] 4.44 10*6/uL Normal 4.20-6.00 [facility] Comment on above: Order Comment: Speci men Type: BLOOD SPECIMENOrdering Facility: [facility] Address: [address] [place], [place] [address] Performed By: #### 5 8410-2 ####[facility] [id number] [place] [address] [place] WBC (Bld) [#/Vol] 7.93 10*3/uL Normal 3.70-11.00 [facility] Comment on above: Order Comment: Speci men Type: BLOOD SPECIMENOrdering Facility: [facility] Address: [address] [place], [place] [address] Performed By: #### 5 8410-2 ####[facility] [id number] [place] [address] [place] CONSULTon 03-30-2023 CONSULT Normal [facility] CONSULT PROGon 03-30-2023 CONSULT PROG Normal [facility] Comprehensive metabolic 2000 panelon 03-30-2023 Albumin [Mass/Vol] 3.5 g/dL Low 3.9-4.9 [facility] Comment on above: Order Comment: Speci men Type: BLOOD SPECIMENOrdering Facility: [facility] Address: [address] [place], [place] [address] Performed By: #### 2 4323-8 ####[facility] LABIA [id number] [place] [address] [place] ALP [Catalytic activity/Vol] 137 U/L High 38-113 [facility] Comment on above: Order Comment: Speci men Type: BLOOD SPECIMENOrdering Facility: [facility] Address: [address] [place] [address] Performed By: #### 2 4323-8 ####[facility] LABCLIA [id number] [address] [place] ALT [Catalytic activity/Vol] 23 U/L Normal 10-54 [facility] Comment on above: Order Comment: Speci men Type: BLOOD SPECIMENOrdering Facility: [facility] Address: [address] [place] [address] Performed By: #### 2 4323-8 ####[facility] LABCLIA [id number] [place] [address] [place] Anion gap [Moles/Vol] 14 mmol/L Normal 9-18 [facility] Comment on above: Order Comment: Speci men Type: BLOOD SPECIMENOrdering Facility: [facility] Address: [address] [place] [address] Performed By: #### 2 4323-8 ####[facility] LABCLIA [id number] [address] [place] AST [Catalytic activity/Vol] 24 U/L Normal 14-40 [facility] Comment on above: Order Comment: Speci men Type: BLOOD SPECIMENOrdering Facility: [facility] Address: [address] Performed By: #### 2 4323-8 ####[facility] LABCLIA [id number] [place] [address] [place] Bilirubin [Mass/Vol] 1.6 mg/dL High 0.2-1.3 [facility] Comment on above: Order Comment: Speci men Type: BLOOD SPECIMENOrdering Facility: [facility] Address: [address] [place] [address] Performed By: #### 2 4323-8 ####[facility] LABCLIA [id number] [place] [address] [place] Calcium [Mass/Vol] 9.5 mg/dL Normal 8.5-10.2 [facility] Comment on above: Order Comment: Speci men Type: BLOOD SPECIMENOrdering Facility: [facility] Address: [address] [place] [address] Performed By: #### 2 4323-8 ####[facility] LABCLIA [id number] [place] [address] [place] Chloride [Moles/Vol] 95 mmol/L Low 97-105 [facility] Comment on above: Order Comment: Speci men Type: BLOOD SPECIMENOrdering Facility: [facility] Address: [address] [place] [address] Performed By: #### 2 4323-8 ####[facility] LABCLIA [id number] [place] [address] [place] CO2 [Moles/Vol] 23 mmol/L Normal 22-30 [facility] Comment on above: Order Comment: Speci men Type: BLOOD SPECIMENOrdering Facility: [facility] Address: [address] [place] [address] Performed By: #### 2 4323-8 ####[facility] LABCLIA [id number] [place] [address] [place] Creatinine [Mass/Vol] 2.12 mg/dL High 0.73-1.22 [facility] Comment on above: Order Comment: Speci men Type: BLOOD SPECIMENOrdering Facility: [facility] Address: [address] [place], [place] [address] Performed By: #### 2 4323-8 ####[facility] LABCLIA [id number] [place] [address] [place] Creatinine and Glomerular filtration rate.predicted panel (S/P/Bld) 34 mL/min/1.73m??? Low >=60 [facility] Comment on above: Order Comment: Joseline clemons Type: BLOOD SPECIMENOrdering Facility: [facility] Address: [address] [id number] Result Comment: Syl mated Glomerular Filtration Rate [...] actual GFR. Performed By: #### 2 4323-8 ####[facility] LABIA [id number] [place] [address] [place] Glucose [Mass/Vol] 145 mg/dL High 74-99 [facility] Comment on above: Order Comment: Joseline clemons Type: BLOOD SPECIMENOrdering Facility: [facility] Address: [address] [address] Result Comment: The [place] [employer] (ADA) provides guidance for cutoff [...] Standards of Medical Care in Diabetes 2016, [place] [employer]. Diabetes Care. 2016.39(Suppl 1). Performed By: #### 2 4323-8 ####[facility] LABIA [id number] [place] [address] [place] Potassium [Moles/Vol] 4.5 mmol/L Normal 3.7-5.1 [facility] Comment on above: Order Comment: Joseline clemons Type: BLOOD SPECIMENOrdering Facility: [facility] Address: [address] Performed By: #### 2 4323-8 ####[facility] LABCLIA [id number] [place] [address] [place] Protein [Mass/Vol] 6.5 g/dL Normal 6.3-8.0 [facility] Comment on above: Order Comment: Speci men Type: BLOOD SPECIMENOrdering Facility: [facility] Address: [address] [place] [address] Performed By: #### 2 4323-8 ####[facility] LABCLIA [id number] [place] [address] [place] Sodium [Moles/Vol] 132 mmol/L Low 136-144 [facility] Comment on above: Order Comment: Speci men Type: BLOOD SPECIMENOrdering Facility: [facility] Address: [address] [place] [address] Performed By: #### 2 4323-8 ####[facility] LABCLIA [id number] [place] [address] [place] Urea nitrogen [Mass/Vol] 54 mg/dL High 9-24 [facility] Comment on above: Order Comment: Speci men Type: BLOOD SPECIMENOrdering Facility: [facility] Address: [address] [place] [address] Performed By: #### 2 4323-8 ####[facility] LABCLIA [id number] [place] [address] [place] NUTRITIONon 03-30-2023 NUTRITION Normal [facility] TYPE + SCREENon 03-30-2023 ABO A Normal [facility] Comment on above: Order Comment: Speci men Type: BLOOD SPECIMENOrdering Facility: [facility] Address: [address] [place] [address] Performed By: #### T SCR ####[facility] BLOOD BANKCLIA [id number] [place] [address] [place] HISTORICAL AB SCR STATUS Negative Normal [facility] Comment on above: Order Comment: Speci men Type: BLOOD SPECIMENOrdering Facility: [facility] Address: [address] [address] Performed By: #### T SCR ####CC [facility] BLOOD BANKCLIA [id number] [address] [place] Rh Nom (Bld) Positive Normal [facility] Comment on above: Order Comment: Speci men Type: BLOOD SPECIMENOrdering Facility: [facility] Address: [address] [address] Performed By: #### T SCR ####[facility] BLOOD BANKCLIA [id number] [address] TYPE AND SCREEN EXPIRATION 04/02/2023 23:59 Normal [facility] Comment on above: Order Comment: Speci men Type: BLOOD SPECIMENOrdering Facility: [facility] Address: [address] [place] [address] Performed By: #### T SCR ####[facility] BLOOD BANKCLIA [id number] [place] [address] [place] CASE MANAGEMon 03-29-2023 CASE MANAGEM Normal [facility] CBC panel Auto (Bld)on 03-29 Erythrocyte distribution width (RBC) [Ratio] 21.1 % High 11.5-15.0 [facility] Comment on above: Order Comment: Speci men Type: BLOOD SPECIMENOrdering Facility: [facility] Address: [address] [address] Performed By: #### 5 8410-2 ####[facility] LABCLIA [id number] [address] STATES OF [facility] Hematocrit (Bld) [Volume fraction] 36.8 % Low 39.0-51.0 [facility] Comment on above: Order Comment: Speci men Type: BLOOD SPECIMENOrdering Facility: [facility] Address: [address] Performed By: #### 5 8410-2 ####[facility] LABIA [id number] [place] [address] [place] Hemoglobin (Bld) [Mass/Vol] 11.4 g/dL Low 13.0-17.0 [facility] Comment on above: Order Comment: Speci men Type: BLOOD SPECIMENOrdering Facility: [facility] Address: [address] [place], [place] [address] Performed By: #### 5 8410-2 ####[facility] LABIA [id number] [place] [address] [place] MCH (RBC) [Entitic mass] 25.1 pg Low 26.0-34.0 [facility] Comment on above: Order Comment: Speci men Type: BLOOD SPECIMENOrdering Facility: [facility] Address: [address] [place], [place] [address] Performed By: #### 5 8410-2 ####[facility] LABIA [id number] [address] [place] MCHC (RBC) [Mass/Vol] 31.0 g/dL Normal 30.5-36.0 [facility] Comment on above: Order Comment: Speci men Type: BLOOD SPECIMENOrdering Facility: [facility] Address: [address] Performed By: #### 5 8410-2 ####[facility] LABIA [id number] [place] [address] [place] MCV (RBC) [Entitic vol] 80.9 fL Normal 80.0-100.0 [facility] Comment on above: Order Comment: Speci men Type: BLOOD SPECIMENOrdering Facility: [facility] Address: [address] [place], [place] [address] Performed By: #### 5 8410-2 ####[facility] LABIA [id number] [place] [address] [place] Nucleated RBC (Bld) [#/Vol] 0.02 10*3/uL High <0.01 [facility] Comment on above: Order Comment: Speci men Type: BLOOD SPECIMENOrdering Facility: [facility] Address: [address] [place] [address] Performed By: #### 5 8410-2 ####[facility] LABIA [id number] [place] [address] [place] Platelet mean volume (Bld) [Entitic vol] 9.8 fL Normal 9.0-12.7 [facility] Comment on above: Order Comment: Speci men Type: BLOOD SPECIMENOrdering Facility: [facility] Address: [address] [place] [address] Performed By: #### 5 8410-2 ####[facility] LABIA [id number] [place] [address] [place] Platelets (Bld) [#/Vol] 231 10*3/uL Normal 150-400 [facility] Comment on above: Order Comment: Speci men Type: BLOOD SPECIMENOrdering Facility: [facility] Address: [address] [place] [address] Performed By: #### 5 8410-2 ####[facility] LABIA [id number] [place] [address] [place] RBC (Bld) [#/Vol] 4.55 10*6/uL Normal 4.20-6.00 [facility] Comment on above: Order Comment: Speci men Type: BLOOD SPECIMENOrdering Facility: [facility] Address: [address] [place], [place] [address] Performed By: #### 5 8410-2 ####[facility] LABIA [id number] [place] [address] [place] WBC (Bld) [#/Vol] 8.72 10*3/uL Normal 3.70-11.00 [facility] Comment on above: Order Comment: Speci men Type: BLOOD SPECIMENOrdering Facility: [facility] Address: [address] [place] [address] Performed By: #### 5 8410-2 ####[facility] LABCLIA [id number] [place] [address] [place] CONSULT PROGon 03-29-2023 CONSULT PROG Normal [facility] Comprehensive metabolic 2000 panelon 03-29-2023 Albumin [Mass/Vol] 3.5 g/dL Low 3.9-4.9 [facility] Comment on above: Order Comment: Speci men Type: BLOOD SPECIMENOrdering Facility: [facility] Address: [address] [place] [address] Performed By: #### 2 4323-8 ####[facility] LABCLIA [id number] [place] [address] [place] ALP [Catalytic activity/Vol] 145 U/L High 38-113 [facility] Comment on above: Order Comment: Speci men Type: BLOOD SPECIMENOrdering Facility: [facility] Address: [address] [place] [address] Performed By: #### 2 4323-8 ####[facility] LABCLIA [id number] [place] [address] [place] ALT [Catalytic activity/Vol] 31 U/L Normal 10-54 [facility] Comment on above: Order Comment: Speci men Type: BLOOD SPECIMENOrdering Facility: [facility] Address: [address] [place] [address] Performed By: #### 2 4323-8 ####[facility] LABCLIA [id number] [place] [address] [place] Anion gap [Moles/Vol] 16 mmol/L Normal 9-18 [facility] Comment on above: Order Comment: Speci men Type: BLOOD SPECIMENOrdering Facility: [facility] Address: [address] Performed By: #### 2 4323-8 ####[facility] LABCLIA [id number] [place] [address] [place] AST [Catalytic activity/Vol] 24 U/L Normal 14-40 [facility] Comment on above: Order Comment: Speci men Type: BLOOD SPECIMENOrdering Facility: [facility] Address: [address] Performed By: #### 2 4323-8 ####[facility] LABCLIA [id number] [place] [address] [place] Bilirubin [Mass/Vol] 1.8 mg/dL High 0.2-1.3 [facility] Comment on above: Order Comment: Speci men Type: BLOOD SPECIMENOrdering Facility: [facility] Address: [address] Performed By: #### 2 4323-8 ####[facility] LABCLIA [id number] [place] [address] [place] Calcium [Mass/Vol] 9.3 mg/dL Normal 8.5-10.2 [facility] Comment on above: Order Comment: Speci men Type: BLOOD SPECIMENOrdering Facility: [facility] Address: [address] Performed By: #### 2 4323-8 ####[facility] LABCLIA [id number] [place] [address] [place] Chloride [Moles/Vol] 95 mmol/L Low 97-105 [facility] Comment on above: Order Comment: Speci men Type: BLOOD SPECIMENOrdering Facility: [facility] Address: [address] Performed By: #### 2 4323-8 ####[facility] LABCLIA [id number] [place] [address] [place] CO2 [Moles/Vol] 21 mmol/L Low 22-30 [facility] Comment on above: Order Comment: Speci men Type: BLOOD SPECIMENOrdering Facility: [facility] Address: [address] [place] [address] Performed By: #### 2 4323-8 ####[facility] LABIA [id number] [address] [place] Creatinine [Mass/Vol] 2.15 mg/dL High 0.73-1.22 [facility] Comment on above: Order Comment: Speci men Type: BLOOD SPECIMENOrdering Facility: [facility] Address: [address] [place] [address] Performed By: #### 2 4323-8 ####[facility] [id number] [address] Creatinine and Glomerular filtration rate.predicted panel (S/P/Bld) 33 mL/min/1.73m??? Low >=60 [facility] Comment on above: Order Comment: Speci men Type: BLOOD SPECIMENOrdering Facility: [facility] Address: [address] [place] [address] Result Comment: Syl mated Glomerular Filtration Rate [...] actual GFR. Performed By: #### 2 4323-8 ####[facility] [id number] [place] [address] [place] Glucose [Mass/Vol] 212 mg/dL High 74-99 [facility] Comment on above: Order Comment: Speci men Type: BLOOD SPECIMENOrdering Facility: [facility] Address: [address] [phone] Result Comment: The [place] [employer] (ADA) provides guidance for cutoff [...] Standards of Medical Care in Diabetes 2016, [place] [employer]. Diabetes Care. 2016.39(Suppl 1). Performed By: #### 2 4323-8 ####[facility] LABIA [id number] [place] [address] [place] Potassium [Moles/Vol] 4.4 mmol/L Normal 3.7-5.1 [facility] Comment on above: Order Comment: Speci men Type: BLOOD SPECIMENOrdering Facility: [facility] Address: [address] [address] Performed By: #### 2 4323-8 ####[facility] LABIA [id number] [place] [address] [place] Protein [Mass/Vol] 6.4 g/dL Normal 6.3-8.0 [facility] Comment on above: Order Comment: Speci men Type: BLOOD SPECIMENOrdering Facility: [facility] Address: [address] [address] Performed By: #### 2 4323-8 ####[facility] LABIA [id number] [place] [address] [place] Sodium [Moles/Vol] 132 mmol/L Low 136-144 [facility] Comment on above: Order Comment: Speci men Type: BLOOD SPECIMENOrdering Facility: [facility] Address: [address] [address] Performed By: #### 2 4323-8 ####[facility] LABIA [id number] [address] [place] Urea nitrogen [Mass/Vol] 62 mg/dL High 9-24 [facility] Comment on above: Order Comment: Joseline clemons Type: BLOOD SPECIMENOrdering Facility: [facility] Address: [address] [place] [address] Performed By: #### 2 4323-8 ####[facility] LABIA [id number] [address] [place] Fact Xa PPP-aCncon 3 Coagulation factor X activated act Coag Qn (PPP) 0.20 IU/mL High <0.10 [facility] Comment on above: Order Comment: Joseline clemons Type: BLOOD SPECIMENOrdering Facility: [facility] Address: [address] [place] [address] Result Comment: The recommended therapeutic range for treatment of venous and arterial thrombosis with intravenous unfractionated heparin is an anti Xa activity level of 0.3 to 0.7 IU/mL. In patients with concomitant therapy with thrombolytic agents and/or platelet glycoprotein IIb/IIIa antagonists, the recommended therapeutic range is an anti Xa activity level of 0.2 to 0.5 IU/mL. Performed By: #### 3 217-7 ####[facility] [id number] [address] [place] Coagulation factor X activated act Coag Qn (PPP) 0.14 IU/mL High <0.10 [facility] Comment on above: Order Comment: Joseline clemons Type: BLOOD SPECIMENOrdering Facility: [facility] Address: [address] [place] [address] Result Comment: The recommended therapeutic range for treatment of venous and arterial thrombosis with intravenous unfractionated heparin is an anti Xa activity level of 0.3 to 0.7 IU/mL. In patients with concomitant therapy with thrombolytic agents and/or platelet glycoprotein IIb/IIIa antagonists, the recommended therapeutic range is an anti Xa activity level of 0.2 to 0.5 IU/mL. Performed By: #### 3 217-7 ####[facility] [id number] [address] OF [facility] PTT, ANTICOAGULANT THERAPYon 03-29-2023 aPTT Coag (PPP) [Time] 61.0 s High 23.0-32.4 [facility] Comment on above: Order Comment: Speci men Type: BLOOD SPECIMENOrdering Facility: [facility] Address: [address] [place] [address] Performed By: #### P TTAC ####[facility] [id number] [address] aPTT Coag (PPP) [Time] 32.9 s High 23.0-32.4 [facility] Comment on above: Order Comment: Speci men Type: BLOOD SPECIMENOrdering Facility: [facility] Address: [address] [place] [address] Performed By: #### P TTAC, 34704-9 ####[facility] [id number] [address] aPTT Coag (PPP) [Time] 123.5 s High 23.0-32.4 [facility] Comment on above: Order Comment: Speci men Type: BLOOD SPECIMENOrdering Facility: [facility] Address: [address] [place] [address] Result Comment: Anival milton checked for clot. Result rechecked. Performed By: #### P TTAC ####[facility] [id number] [address] aPTT Coag (PPP) [Time] s High 23.0-32.4 [facility] Comment on above: Order Comment: Speci men Type: BLOOD SPECIMENOrdering Facility: [facility] Address: [address] [place] [address] Result Comment: Samp le checked for clot.Result rechecked. Performed By: #### P TTAC ####[facility] LABCLIA [id number] [place] [address] [place] Basic metabolic 2000 panelon 03-28-2023 Anion gap [Moles/Vol] 12 mmol/L Normal 9-18 [facility] Comment on above: Order Comment: Speci men Type: BLOOD SPECIMENOrdering Facility: [facility] Address: [address] Performed By: #### 2 4321-2 ####[facility] LABCLIA [id number] [place] [address] [place] Calcium [Mass/Vol] 9.6 mg/dL Normal 8.5-10.2 [facility] Comment on above: Order Comment: Speci men Type: BLOOD SPECIMENOrdering Facility: [facility] Address: [address] [place], [place] [address] Performed By: #### 2 4321-2 ####[facility] LABCLIA [id number] [place] [address] [place] Chloride [Moles/Vol] 94 mmol/L Low 97-105 [facility] Comment on above: Order Comment: Speci men Type: BLOOD SPECIMENOrdering Facility: [facility] Address: [address] [place] [address] Performed By: #### 2 4321-2 ####[facility] LABCLIA [id number] [place] [address] [place] CO2 [Moles/Vol] 25 mmol/L Normal 22-30 [facility] Comment on above: Order Comment: Speci men Type: BLOOD SPECIMENOrdering Facility: [facility] Address: [address] Performed By: #### 2 4321-2 ####[facility] LABCLIA [id number] [address] STATES OF [facility] Creatinine [Mass/Vol] 2.35 mg/dL High 0.73-1.22 [facility] Comment on above: Order Comment: Joseline clemons Type: BLOOD SPECIMENOrdering Facility: [facility] Address: [address] [address] Performed By: #### 2 4321-2 ####[facility] [id number] [address] Creatinine and Glomerular filtration rate.predicted panel (S/P/Bld) 30 mL/min/1.73m??? Low >=60 [facility] Comment on above: Order Comment: Joseline clemons Type: BLOOD SPECIMENOrdering Facility: [facility] Address: [address] [place] [address] Result Comment: Sly mated Glomerular Filtration Rate (eGFR) is calculated [...] actual GFR. Performed By: #### 2 4321-2 ####[facility] LABIA [id number] [place] [address] [place] Glucose [Mass/Vol] 172 mg/dL High 74-99 [facility] Comment on above: Order Comment: Joseline clemons Type: BLOOD SPECIMENOrdering Facility: [facility] Address: [address] [address] Result Comment: The [place] [employer] (ADA) provides guidance for cutoff [...] Standards of Medical Care in Diabetes 2016, [place] [employer]. Diabetes Care. 2016.39(Suppl 1). Performed By: #### 2 4321-2 ####[facility] LABCLIA [id number] [place] [address] [place] Potassium [Moles/Vol] 4.2 mmol/L Normal 3.7-5.1 [facility] Comment on above: Order Comment: Speci men Type: BLOOD SPECIMENOrdering Facility: [facility] Address: [address] [place] [address] Performed By: #### 2 4321-2 ####[facility] LABIA [id number] [place] [address] [place] Sodium [Moles/Vol] 131 mmol/L Low 136-144 [facility] Comment on above: Order Comment: Speci men Type: BLOOD SPECIMENOrdering Facility: [facility] Address: [address] [address] Performed By: #### 2 4321-2 ####[facility] LABIA [id number] [place] [address] [place] Urea nitrogen [Mass/Vol] 62 mg/dL High 9-24 [facility] Comment on above: Order Comment: Speci men Type: BLOOD SPECIMENOrdering Facility: [facility] Address: [address] [address] Performed By: #### 2 4321-2 ####[facility] LABIA [id number] [place] [address] [place] CARD CATH DIAGNOSTICon 03-28 [facility] panel Auto (Bld)on 03-28 Erythrocyte distribution width (RBC) [Ratio] 20.6 % High 11.5-15.0 [facility] Comment on above: Order Comment: Speci men Type: BLOOD SPECIMENOrdering Facility: [facility] Address: [address] [address] Performed By: #### 5 8410-2 ####[facility] LABIA [id number] [address] [place] Hematocrit (Bld) [Volume fraction] 35.9 % Low 39.0-51.0 [facility] Comment on above: Order Comment: Speci men Type: BLOOD SPECIMENOrdering Facility: [facility] Address: [address] [address] Performed By: #### 5 8410-2 ####[facility] LABIA [id number] [address] [place] Hemoglobin (Bld) [Mass/Vol] 11.1 g/dL Low 13.0-17.0 [facility] Comment on above: Order Comment: Speci men Type: BLOOD SPECIMENOrdering Facility: [facility] Address: [address] [address] Performed By: #### 5 8410-2 ####[facility] LABIA [id number] [address] [place] MCH (RBC) [Entitic mass] 24.7 pg Low 26.0-34.0 [facility] Comment on above: Order Comment: Speci men Type: BLOOD SPECIMENOrdering Facility: [facility] Address: [address] Performed By: #### 5 8410-2 ####[facility] LABIA [id number] [place] [address] [place] MCHC (RBC) [Mass/Vol] 30.9 g/dL Normal 30.5-36.0 [facility] Comment on above: Order Comment: Speci men Type: BLOOD SPECIMENOrdering Facility: [facility] Address: [address] Performed By: #### 5 8410-2 ####[facility] LABIA [id number] [place] [address] [place] MCV (RBC) [Entitic vol] 80.0 fL Normal 80.0-100.0 [facility] Comment on above: Order Comment: Speci men Type: BLOOD SPECIMENOrdering Facility: [facility] Address: [address] [place], [place] [address] Performed By: #### 5 8410-2 ####[facility] LABIA [id number] [place] [address] [place] Nucleated RBC (Bld) [#/Vol] 10*3/uL Normal <0.01 [facility] Comment on above: Order Comment: Speci men Type: BLOOD SPECIMENOrdering Facility: [facility] Address: [address] [place], [place] [address] Performed By: #### 5 8410-2 ####[facility] [id number] [place] [address] [place] Platelet mean volume (Bld) [Entitic vol] 9.4 fL Normal 9.0-12.7 [facility] Comment on above: Order Comment: Speci men Type: BLOOD SPECIMENOrdering Facility: [facility] Address: [address] [place] [phone] Performed By: #### 5 8410-2 ####[facility] [id number] [place] [address] [place] Platelets (Bld) [#/Vol] 224 10*3/uL Normal 150-400 [facility] Comment on above: Order Comment: Speci men Type: BLOOD SPECIMENOrdering Facility: [facility] Address: [address] [place] [address] Performed By: #### 5 8410-2 ####[facility] LABIA [id number] [place] [address] [place] RBC (Bld) [#/Vol] 4.49 10*6/uL Normal 4.20-6.00 [facility] Comment on above: Order Comment: Speci men Type: BLOOD SPECIMENOrdering Facility: [facility] Address: [address] [place] [address] Performed By: #### 5 8410-2 ####[facility] LABCLIA [id number] [place] [address] [place] [facility] WBC (Bld) [#/Vol] 7.95 10*3/uL Normal 3.70-11.00 [facility] Comment on above: Order Comment: Speci men Type: BLOOD SPECIMENOrdering Facility: [facility] Address: [address] [place] [address] Performed By: #### 5 8410-2 ####[facility] LABCLIA [id number] [address] OF [facility] CONSULT PROGon 03-28-2023 CONSULT PROG Normal [facility] Comprehensive metabolic 2000 panelon 03-28-2023 Albumin [Mass/Vol] 3.3 g/dL Low 3.9-4.9 [facility] Comment on above: Order Comment: Speci men Type: BLOOD SPECIMENOrdering Facility: [facility] Address: [address] [place] [address] Performed By: #### 2 4323-8 ####[facility] LABCLIA [id number] [place] [address] [place] ALP [Catalytic activity/Vol] 139 U/L High 38-113 [facility] Comment on above: Order Comment: Speci men Type: BLOOD SPECIMENOrdering Facility: [facility] Address: [address] [place], [place] [address] Performed By: #### 2 4323-8 ####[facility] LABCLIA [id number] [place] [address] [place] ALT [Catalytic activity/Vol] 29 U/L Normal 10-54 [facility] Comment on above: Order Comment: Speci men Type: BLOOD SPECIMENOrdering Facility: [facility] Address: [address] Performed By: #### 2 4323-8 ####[facility] LABCLIA [id number] [place] [address] [place] Anion gap [Moles/Vol] 12 mmol/L Normal 9-18 [facility] Comment on above: Order Comment: Speci men Type: BLOOD SPECIMENOrdering Facility: [facility] Address: [address] [address] Performed By: #### 2 4323-8 ####[facility] LABCLIA [id number] [place] [address] [place] AST [Catalytic activity/Vol] 24 U/L Normal 14-40 [facility] Comment on above: Order Comment: Speci men Type: BLOOD SPECIMENOrdering Facility: [facility] Address: [address] Performed By: #### 2 4323-8 ####[facility] LABCLIA [id number] [place] [address] [place] Bilirubin [Mass/Vol] 2.1 mg/dL High 0.2-1.3 [facility] Comment on above: Order Comment: Speci men Type: BLOOD SPECIMENOrdering Facility: [facility] Address: [address] Performed By: #### 2 4323-8 ####[facility] LABCLIA [id number] [place] [address] [place] Calcium [Mass/Vol] 9.2 mg/dL Normal 8.5-10.2 [facility] Comment on above: Order Comment: Speci men Type: BLOOD SPECIMENOrdering Facility: [facility] Address: [address] Performed By: #### 2 4323-8 ####[facility] LABCLIA [id number] [place] [address] [place] Chloride [Moles/Vol] 93 mmol/L Low 97-105 [facility] Comment on above: Order Comment: Speci men Type: BLOOD SPECIMENOrdering Facility: [facility] Address: [address] [place] [address] Performed By: #### 2 4323-8 ####[facility] LABCLIA [id number] [place] [address] [place] CO2 [Moles/Vol] 24 mmol/L Normal 22-30 [facility] Comment on above: Order Comment: Speci men Type: BLOOD SPECIMENOrdering Facility: [facility] Address: [address] [place] [address] Performed By: #### 2 4323-8 ####[facility] LABCLIA [id number] [address] [place] Creatinine [Mass/Vol] 2.16 mg/dL High 0.73-1.22 [facility] Comment on above: Order Comment: Speci men Type: BLOOD SPECIMENOrdering Facility: [facility] Address: [address] [place] [address] Performed By: #### 2 4323-8 ####[facility] LABIA [id number] [address] Creatinine and Glomerular filtration rate.predicted panel (S/P/Bld) 33 mL/min/1.73m??? Low >=60 [facility] Comment on above: Order Comment: Speci men Type: BLOOD SPECIMENOrdering Facility: [facility] Address: [address] [place] [address] Result Comment: Syl mated Glomerular Filtration Rate [...] actual GFR. Performed By: #### 2 4323-8 ####[facility] LABCLIA [id number] [place] [address] [place] Glucose [Mass/Vol] 214 mg/dL High 74-99 [facility] Comment on above: Order Comment: Joseline clemons Type: BLOOD SPECIMENOrdering Facility: [facility] Address: [address] [phone] Result Comment: The [place] [employer] (ADA) provides guidance for cutoff [...] Standards of Medical Care in Diabetes 2016, [place] [employer]. Diabetes Care. 2016.39(Suppl 1). Performed By: #### 2 4323-8 ####[facility] LABCLIA [id number] [place] [address] [place] Potassium [Moles/Vol] 4.4 mmol/L Normal 3.7-5.1 [facility] Comment on above: Order Comment: Joseline clemons Type: BLOOD SPECIMENOrdering Facility: [facility] Address: [address] [phone] Performed By: #### 2 4323-8 ####[facility] LABCLIA [id number] [place] [address] [place] Protein [Mass/Vol] 6.2 g/dL Low 6.3-8.0 [facility] Comment on above: Order Comment: Speci men Type: BLOOD SPECIMENOrdering Facility: [facility] Address: [address] [address] Performed By: #### 2 4323-8 ####[facility] LABCLIA [id number] [place] [address] [place] Sodium [Moles/Vol] 129 mmol/L Low 136-144 [facility] Comment on above: Order Comment: Speci men Type: BLOOD SPECIMENOrdering Facility: [facility] Address: [address] [address] Performed By: #### 2 4323-8 ####[facility] LABCLIA [id number] [place] [address] [place] Urea nitrogen [Mass/Vol] 56 mg/dL High 9-24 [facility] Comment on above: Order Comment: Speci men Type: BLOOD SPECIMENOrdering Facility: [facility] Address: [address] [place] [address] Performed By: #### 2 4323-8 ####[facility] LABIA [id number] [place] [address] [place] NURSING PROGon 03-28-2023 NURSING PROG Normal [facility] PT EDon 03-28-2023 PT ED Normal [facility] PT panel Coag (PPP)on 2022 INR Coag (PPP) [Relative time] 1.6 {INR} High 0.9-1.3 [facility] Comment on above: Order Comment: Speci men Type: BLOOD SPECIMENOrdering Facility: [facility] Address: [address] [place] [address] Result Comment: Baylee min K Antagonist (VKA) Therapeutic Range: INR 2 to 3 (Target INR of 2.5)Note: For patients treated with VKA drugs, such as warfarin, the [place] [employer] 2012 Guideline recommends [...] al. Chest 2012, 141:7S-47SNishimura RA, et al. [facility] 2017, 70: 252-289 Performed By: #### 3 4528-0, 15047-3 ####[facility] LABCLIA [id number] [place] [address] [place] PT Coag (PPP) [Time] 16.5 s High 9.7-13.0 [facility] Comment on above: Order Comment: Joseline clemons Type: BLOOD SPECIMENOrdering Facility: [facility] Address: [address] [place] [address] Performed By: #### 3 4528-0, 32292-1 ####[facility] LABIA [id number] [address] [place] aPTT PPPon 03-28-2023 aPTT Coag (PPP) [Time] 33.6 s High 23.0-32.4 [facility] Comment on above: Order Comment: Joseline clemons Type: BLOOD SPECIMENOrdering Facility: [facility] Address: [address] [place] [address] Performed By: #### 3 4528-0, 02140-6 ####[facility] LABIA [id number] [place] [address] [place] CASE MANAGEMon 03-27-2023 CASE MANAGEM Normal [facility] CBC panel Auto (Bld)on 03-27 Erythrocyte distribution width (RBC) [Ratio] 20.8 % High 11.5-15.0 [facility] Comment on above: Order Comment: Speci men Type: BLOOD SPECIMENOrdering Facility: [facility] Address: [address] [address] Performed By: #### 5 8410-2 ####[facility] LABIA [id number] [address] [place] Hematocrit (Bld) [Volume fraction] 35.1 % Low 39.0-51.0 [facility] Comment on above: Order Comment: Speci men Type: BLOOD SPECIMENOrdering Facility: [facility] Address: [address] [address] Performed By: #### 5 8410-2 ####[facility] LABIA [id number] [address] [place] Hemoglobin (Bld) [Mass/Vol] 10.9 g/dL Low 13.0-17.0 [facility] Comment on above: Order Comment: Speci men Type: BLOOD SPECIMENOrdering Facility: [facility] Address: [address] Performed By: #### 5 8410-2 ####[facility] LABIA [id number] [address] [place] MCH (RBC) [Entitic mass] 24.9 pg Low 26.0-34.0 [facility] Comment on above: Order Comment: Speci men Type: BLOOD SPECIMENOrdering Facility: [facility] Address: [address] Performed By: #### 5 8410-2 ####[facility] LABIA [id number] [address] [place] MCHC (RBC) [Mass/Vol] 31.1 g/dL Normal 30.5-36.0 [facility] Comment on above: Order Comment: Speci men Type: BLOOD SPECIMENOrdering Facility: [facility] Address: [address] Performed By: #### 5 8410-2 ####[facility] LABIA [id number] [place] [address] [place] MCV (RBC) [Entitic vol] 80.3 fL Normal 80.0-100.0 [facility] Comment on above: Order Comment: Speci men Type: BLOOD SPECIMENOrdering Facility: [facility] Address: [address] [place], [place] [address] Performed By: #### 5 8410-2 ####[facility] LABIA [id number] [place] [address] [place] Nucleated RBC (Bld) [#/Vol] 10*3/uL Normal <0.01 [facility] Comment on above: Order Comment: Speci men Type: BLOOD SPECIMENOrdering Facility: [facility] Address: [address] [place], [place] [address] Performed By: #### 5 8410-2 ####[facility] [id number] [place] [address] [place] Platelet mean volume (Bld) [Entitic vol] 10.1 fL Normal 9.0-12.7 [facility] Comment on above: Order Comment: Speci men Type: BLOOD SPECIMENOrdering Facility: [facility] Address: [address] [place], [place] [address] Performed By: #### 5 8410-2 ####[facility] [id number] [place] [address] [place] Platelets (Bld) [#/Vol] 234 10*3/uL Normal 150-400 [facility] Comment on above: Order Comment: Speci men Type: BLOOD SPECIMENOrdering Facility: [facility] Address: [address] [place], [place] [address] Performed By: #### 5 8410-2 ####[facility] LABIA [id number] [place] [address] [place] RBC (Bld) [#/Vol] 4.37 10*6/uL Normal 4.20-6.00 [facility] Comment on above: Order Comment: Speci men Type: BLOOD SPECIMENOrdering Facility: [facility] Address: [address] [place] [address] Performed By: #### 5 8410-2 ####[facility] LABCLIA [id number] [place] [address] [place] WBC (Bld) [#/Vol] 10.25 10*3/uL Normal 3.70-11.00 [facility] Comment on above: Order Comment: Speci men Type: BLOOD SPECIMENOrdering Facility: [facility] Address: [address] [place] [address] Performed By: #### 5 8410-2 ####[facility] LABCLIA [id number] [place] [address] [place] CONSULTon 03-27-2023 CONSULT Normal [facility] CONSULT PROGon 03-27-2023 CONSULT PROG Normal [facility] Comprehensive metabolic 2000 panelon 03-27-2023 Albumin [Mass/Vol] 3.3 g/dL Low 3.9-4.9 [facility] Comment on above: Order Comment: Speci men Type: BLOOD SPECIMENOrdering Facility: [facility] Address: [address] [place], [place] [address] Performed By: #### 2 4323-8 ####[facility] LABCLIA [id number] [place] [address] [place] ALP [Catalytic activity/Vol] 141 U/L High 38-113 [facility] Comment on above: Order Comment: Speci men Type: BLOOD SPECIMENOrdering Facility: [facility] Address: [address] [place], [place] [address] Performed By: #### 2 4323-8 ####[facility] LABCLIA [id number] [address] [id number] [address] [place] ALT [Catalytic activity/Vol] 36 U/L Normal 10-54 [facility] Comment on above: Order Comment: Speci men Type: BLOOD SPECIMENOrdering Facility: [facility] Address: [address] [place] [address] Performed By: #### 2 4323-8 ####[facility] LABCLIA [id number] [place] [address] [place] Anion gap [Moles/Vol] 13 mmol/L Normal 9-18 [facility] Comment on above: Order Comment: Speci men Type: BLOOD SPECIMENOrdering Facility: [facility] Address: [address] [place] [address] Performed By: #### 2 4323-8 ####[facility] LABCLIA [id number] [place] [address] [place] AST [Catalytic activity/Vol] 29 U/L Normal 14-40 [facility] Comment on above: Order Comment: Speci men Type: BLOOD SPECIMENOrdering Facility: [facility] Address: [address] [place] [address] Performed By: #### 2 4323-8 ####[facility] LABCLIA [id number] [place] [address] [place] Bilirubin [Mass/Vol] 2.1 mg/dL High 0.2-1.3 [facility] Comment on above: Order Comment: Speci men Type: BLOOD SPECIMENOrdering Facility: [facility] Address: [address] [place], [place] [address] Performed By: #### 2 4323-8 ####[facility] LABCLIA [id number] [place] [address] [place] Calcium [Mass/Vol] 9.1 mg/dL Normal 8.5-10.2 [facility] Comment on above: Order Comment: Speci men Type: BLOOD SPECIMENOrdering Facility: [facility] Address: [address] Performed By: #### 2 4323-8 ####[facility] LABCLIA [id number] [place] [address] [place] Chloride [Moles/Vol] 94 mmol/L Low 97-105 [facility] Comment on above: Order Comment: Speci men Type: BLOOD SPECIMENOrdering Facility: [facility] Address: [address] [place] [address] Performed By: #### 2 4323-8 ####[facility] LABCLIA [id number] [place] [address] [place] CO2 [Moles/Vol] 23 mmol/L Normal 22-30 [facility] Comment on above: Order Comment: Speci men Type: BLOOD SPECIMENOrdering Facility: [facility] Address: [address] [place] [address] Performed By: #### 2 4323-8 ####[facility] LABCLIA [id number] [place] [address] [place] Creatinine [Mass/Vol] 2.32 mg/dL High 0.73-1.22 [facility] Comment on above: Order Comment: Speci men Type: BLOOD SPECIMENOrdering Facility: [facility] Address: [address] [place] [address] Performed By: #### 2 4323-8 ####[facility] LABIA [id number] [address] [place] Creatinine and Glomerular filtration rate.predicted panel (S/P/Bld) 30 mL/min/1.73m??? Low >=60 [facility] Comment on above: Order Comment: Speci men Type: BLOOD SPECIMENOrdering Facility: [facility] Address: [address] [place] [address] Result Comment: Syl mated Glomerular Filtration Rate [...] actual GFR. Performed By: #### 2 4323-8 ####[facility] LABCLIA [id number] [place] [address] [place] Glucose [Mass/Vol] 171 mg/dL High 74-99 [facility] Comment on above: Order Comment: Joseline clemons Type: BLOOD SPECIMENOrdering Facility: [facility] Address: [address] [phone] Result Comment: The [place] Diabetes [employer] (ADA) provides guidance for cutoff [...] Standards of Medical Care in Diabetes 2016, [place] [employer]. Diabetes Care. 2016.39(Suppl 1). Performed By: #### 2 4323-8 ####[facility] LABCLIA [id number] [place] [address] [place] Potassium [Moles/Vol] 4.3 mmol/L Normal 3.7-5.1 [facility] Comment on above: Order Comment: Joseline clemons Type: BLOOD SPECIMENOrdering Facility: [facility] Address: [address] [place] [address] Performed By: #### 2 4323-8 ####[facility] LABCLIA [id number] [address] [address] [place] Protein [Mass/Vol] 6.1 g/dL Low 6.3-8.0 [facility] Comment on above: Order Comment: Speci men Type: BLOOD SPECIMENOrdering Facility: [facility] Address: [address] [place] [address] Performed By: #### 2 4323-8 ####[facility] LABCLIA [id number] [place] [address] [place] Sodium [Moles/Vol] 130 mmol/L Low 136-144 [facility] Comment on above: Order Comment: Speci men Type: BLOOD SPECIMENOrdering Facility: [facility] Address: [address] [place] [address] Performed By: #### 2 4323-8 ####[facility] LABCLIA [id number] [place] [address] [place] Urea nitrogen [Mass/Vol] 62 mg/dL High 9-24 [facility] Comment on above: Order Comment: Speci men Type: BLOOD SPECIMENOrdering Facility: [facility] Address: [address] [place] [address] Performed By: #### 2 4323-8 ####[facility] LABIA [id number] [place] [address] [place] IR ARM VENO SYMPTOMATIC BILo n 03-27-2023 IR ARM VENO SYMPTOMATIC NACHO Normal [facility] PT EDon 03-27-2023 PT ED Normal [facility] PT panel Coag (PPP)on 2022 INR Coag (PPP) [Relative time] 2.9 {INR} High 0.9-1.3 [facility] Comment on above: Order Comment: Speci men Type: BLOOD SPECIMENOrdering Facility: [facility] Address: [address] [place] [address] Result Comment: Baylee min K Antagonist (VKA) Therapeutic Range: INR 2 to 3 (Target INR of 2.5)Note: For patients treated with VKA drugs, such as warfarin, the [place] [employer] 2012 Guideline recommends [...] al. Chest 2012, 141:7S-47SNishmati RA, et al. [facility] 2017, 70: 252-289 Performed By: #### 3 4528-0 ####[facility] [id number] [address] [place] PT Coag (PPP) [Time] 28.2 s High 9.7-13.0 [facility] Comment on above: Order Comment: Joseline clemons Type: BLOOD SPECIMENOrdering Facility: [facility] Address: [address] [address] Performed By: #### 3 4528-0 ####[facility] [id number] [address] INR Coag (PPP) [Relative time] 3.0 {INR} High 0.9-1.3 [facility] Comment on above: Order Comment: Joseline clemons Type: BLOOD SPECIMENOrdering Facility: [facility] Address: [address] [place] [address] Result Comment: Baylee min K Antagonist (VKA) Therapeutic Range: INR 2 to 3 (Target INR of 2.5)Note: For patients treated with VKA drugs, such as warfarin, the [place] [employer] 2012 Guideline recommends [...] 3).Geovanna NEGRON et al. Chest 2012, 141:7S-47STrudy JONES, et al. [facility] 2017, 70: 252-289 Performed By: #### 3 4528-0 ####[facility] [id number] [place] [address] [place] PT Coag (PPP) [Time] 29.7 s High 9.7-13.0 [facility] Comment on above: Order Comment: Joseline clemons Type: BLOOD SPECIMENOrdering Facility: [facility] Address: [address] [place] [address] Performed By: #### 3 4528-0 ####[facility] [id number] [address] [place] INR Coag (PPP) [Relative time] 3.2 {INR} High 0.9-1.3 [facility] Comment on above: Order Comment: Joseline clemons Type: BLOOD SPECIMENOrdering Facility: [facility] Address: [address] [place] [address] Result Comment: Baylee min K Antagonist (VKA) Therapeutic Range: INR 2 to 3 (Target INR of 2.5)Note: For patients treated with VKA drugs, such as warfarin, the [place] [employer] 2012 Guideline recommends [...] of 2.5 to 3.5 (target INR of 3).Guyatt GH, et al. Chest 2012, 141:7S-47STrudy RA, et al. [facility] 2017, 70: 252-289 Performed By: #### 3 4528-0 ####[facility] LABIA [id number] [place] [address] [place] PT Coag (PPP) [Time] 30.7 s High 9.7-13.0 [facility] Comment on above: Order Comment: Speci men Type: BLOOD SPECIMENOrdering Facility: [facility] Address: [address] [address] Performed By: #### 3 4528-0 ####[facility] LABIA [id number] [address] [place] CBC panel Auto (Bld)on 03-26 Erythrocyte distribution width (RBC) [Ratio] 20.7 % High 11.5-15.0 [facility] Comment on above: Order Comment: Speci men Type: BLOOD SPECIMENOrdering Facility: [facility] Address: [address] [place] [address] Performed By: #### 5 8410-2 ####[facility] [id number] [place] [address] [place] Hematocrit (Bld) [Volume fraction] 36.3 % Low 39.0-51.0 [facility] Comment on above: Order Comment: Speci men Type: BLOOD SPECIMENOrdering Facility: [facility] Address: [address] [place] [address] Performed By: #### 5 8410-2 ####[facility] [id number] [place] [address] [place] Hemoglobin (Bld) [Mass/Vol] 11.3 g/dL Low 13.0-17.0 [facility] Comment on above: Order Comment: Speci men Type: BLOOD SPECIMENOrdering Facility: [facility] Address: [address] [place] [address] Performed By: #### 5 8410-2 ####[facility] LABIA [id number] [address] STATES [facility] MCH (RBC) [Entitic mass] 24.9 pg Low 26.0-34.0 [facility] Comment on above: Order Comment: Speci men Type: BLOOD SPECIMENOrdering Facility: [facility] Address: [address] [place], [place] [address] Performed By: #### 5 8410-2 ####[facility] [id number] [address] [place] MCHC (RBC) [Mass/Vol] 31.1 g/dL Normal 30.5-36.0 [facility] Comment on above: Order Comment: Speci men Type: BLOOD SPECIMENOrdering Facility: [facility] Address: [address] [place], [place] [address] Performed By: #### 5 8410-2 ####[facility] [id number] [address] [place] MCV (RBC) [Entitic vol] 80.1 fL Normal 80.0-100.0 [facility] Comment on above: Order Comment: Speci men Type: BLOOD SPECIMENOrdering Facility: [facility] Address: [address] [place] [address] Performed By: #### 5 8410-2 ####[facility] [id number] [address] [place] Nucleated RBC (Bld) [#/Vol] 10*3/uL Normal <0.01 [facility] Comment on above: Order Comment: Speci men Type: BLOOD SPECIMENOrdering Facility: [facility] Address: [address] [place], [place] [address] Performed By: #### 5 8410-2 ####[facility] LABIA [id number] [place] [address] [place] Platelet mean volume (Bld) [Entitic vol] 9.7 fL Normal 9.0-12.7 [facility] Comment on above: Order Comment: Speci men Type: BLOOD SPECIMENOrdering Facility: [facility] Address: [address] [place], [place] [address] Performed By: #### 5 8410-2 ####[facility] LABCLIA [id number] [place] [address] [place] Platelets (Bld) [#/Vol] 237 10*3/uL Normal 150-400 [facility] Comment on above: Order Comment: Speci men Type: BLOOD SPECIMENOrdering Facility: [facility] Address: [address] [place], [place] [address] Performed By: #### 5 8410-2 ####[facility] LABCLIA [id number] [place] [address] [place] RBC (Bld) [#/Vol] 4.53 10*6/uL Normal 4.20-6.00 [facility] Comment on above: Order Comment: Speci men Type: BLOOD SPECIMENOrdering Facility: [facility] Address: [address] [place], [place] [address] Performed By: #### 5 8410-2 ####[facility] LABCLIA [id number] [place] [address] [place] WBC (Bld) [#/Vol] 9.04 10*3/uL Normal 3.70-11.00 [facility] Comment on above: Order Comment: Speci men Type: BLOOD SPECIMENOrdering Facility: [facility] Address: [address] [place], [place] [address] Performed By: #### 5 8410-2 ####[facility] LABCLIA [id number] [place] [address] [place] CONSULT PROGon 03-26-[address] [facility] metabolic 2000 panelon 03-26-2023 Albumin [Mass/Vol] 3.5 g/dL Low 3.9-4.9 [facility] Comment on above: Order Comment: Speci men Type: BLOOD SPECIMENOrdering Facility: [facility] Address: [address] [place] [address] Performed By: #### 2 4323-8 ####[facility] LABCLIA [id number] [place] [address] [place] ALP [Catalytic activity/Vol] 146 U/L High 38-113 [facility] Comment on above: Order Comment: Speci men Type: BLOOD SPECIMENOrdering Facility: [facility] Address: [address] [place] [address] Performed By: #### 2 4323-8 ####[facility] LABCLIA [id number] [place] [address] [place] ALT [Catalytic activity/Vol] 36 U/L Normal 10-54 [facility] Comment on above: Order Comment: Speci men Type: BLOOD SPECIMENOrdering Facility: [facility] Address: [address] [place] [address] Performed By: #### 2 4323-8 ####[facility] LABCLIA [id number] [place] [address] [place] Anion gap [Moles/Vol] 15 mmol/L Normal 9-18 [facility] Comment on above: Order Comment: Speci men Type: BLOOD SPECIMENOrdering Facility: [facility] Address: [address] [place], [place] [address] Performed By: #### 2 4323-8 ####[facility] LABCLIA [id number] [place] [address] [place] AST [Catalytic activity/Vol] 36 U/L Normal 14-40 [facility] Comment on above: Order Comment: Speci men Type: BLOOD SPECIMENOrdering Facility: [facility] Address: [address] Performed By: #### 2 4323-8 ####[facility] LABCLIA [id number] [place] [address] [place] Bilirubin [Mass/Vol] 2.7 mg/dL High 0.2-1.3 [facility] Comment on above: Order Comment: Speci men Type: BLOOD SPECIMENOrdering Facility: [facility] Address: [address] Performed By: #### 2 4323-8 ####[facility] LABCLIA [id number] [place] [address] [place] Calcium [Mass/Vol] 9.2 mg/dL Normal 8.5-10.2 [facility] Comment on above: Order Comment: Speci men Type: BLOOD SPECIMENOrdering Facility: [facility] Address: [address] Performed By: #### 2 4323-8 ####[facility] LABCLIA [id number] [place] [address] [place] Chloride [Moles/Vol] 94 mmol/L Low 97-105 [facility] Comment on above: Order Comment: Speci men Type: BLOOD SPECIMENOrdering Facility: [facility] Address: [address] Performed By: #### 2 4323-8 ####[facility] LABCLIA [id number] [place] [address] [place] CO2 [Moles/Vol] 22 mmol/L Normal 22-30 [facility] Comment on above: Order Comment: Speci men Type: BLOOD SPECIMENOrdering Facility: [facility] Address: [address] Performed By: #### 2 4323-8 ####[facility] LABCLIA [id number] [address] OF [facility] Creatinine [Mass/Vol] 2.26 mg/dL High 0.73-1.22 [facility] Comment on above: Order Comment: Joseline clemons Type: BLOOD SPECIMENOrdering Facility: [facility] Address: [address] [address] Performed By: #### 2 4323-8 ####[facility] LABCLIA [id number] [address] Creatinine and Glomerular filtration rate.predicted panel (S/P/Bld) 31 mL/min/1.73m??? Low >=60 [facility] Comment on above: Order Comment: Joseline clemons Type: BLOOD SPECIMENOrdering Facility: [facility] Address: [address] [place] [address] Result Comment: Syl mated Glomerular Filtration Rate [...] actual GFR. Performed By: #### 2 4323-8 ####[facility] LABIA [id number] [address] [place] Glucose [Mass/Vol] 154 mg/dL High 74-99 [facility] Comment on above: Order Comment: Joseline clemons Type: BLOOD SPECIMENOrdering Facility: [facility] Address: [address] [address] Result Comment: The [place] [employer] (ADA) provides guidance for cutoff [...] Standards of Medical Care in Diabetes 2016, [place] [employer]. Diabetes Care. 2016.39(Suppl 1). Performed By: #### 2 4323-8 ####[facility] LABCLIA [id number] [place] [address] [place] Potassium [Moles/Vol] 4.4 mmol/L Normal 3.7-5.1 [facility] Comment on above: Order Comment: Speci men Type: BLOOD SPECIMENOrdering Facility: [facility] Address: [address] [address] Performed By: #### 2 432-8 ####[facility] LABIA [id number] [place] [address] [place] Protein [Mass/Vol] 5.9 g/dL Low 6.3-8.0 [facility] Comment on above: Order Comment: Speci men Type: BLOOD SPECIMENOrdering Facility: [facility] Address: [address] [address] Performed By: #### 2 432-8 ####[facility] LABIA [id number] [place] [address] [place] Sodium [Moles/Vol] 131 mmol/L Low 136-144 [facility] Comment on above: Order Comment: Speci men Type: BLOOD SPECIMENOrdering Facility: [facility] Address: [address] Performed By: #### 2 432-8 ####[facility] LABCLIA [id number] [place] [address] [place] Urea nitrogen [Mass/Vol] 61 mg/dL High 9-24 [facility] Comment on above: Order Comment: Speci men Type: BLOOD SPECIMENOrdering Facility: [facility] Address: [address] Performed By: #### 2 4323-8 ####[facility] LABCLIA [id number] [place] [address] [place] PT panel Coag (PPP)on 2022 INR Coag (PPP) [Relative time] 3.0 {INR} High 0.9-1.3 [facility] Comment on above: Order Comment: Speci kaci Type: BLOOD SPECIMENOrdering Facility: [facility] Address: [address] [place] [address] Result Comment: Baylee min K Antagonist (VKA) Therapeutic Range: INR 2 to 3 (Target INR of 2.5)Note: For patients treated with VKA drugs, such as warfarin, the [place] [employer] 2012 Guideline recommends [...] 3).Geovanna GH, et al. Chest 2012, 141:7S-47STrudy JONES, et al. [facility] 2017, 70: 252-289 Performed By: #### 3 4528-0 ####[facility] LABCLIA [id number] [place] [address] [place] PT Coag (PPP) [Time] 29.4 s High 9.7-13.0 [facility] Comment on above: Order Comment: Speccate clemons Type: BLOOD SPECIMENOrdering Facility: [facility] Address: [address] [place] [address] Performed By: #### 3 4528-0 ####[facility] LABCLIA [id number] [address] [place] CBC panel Auto (Bld)on 03-25 Erythrocyte distribution width (RBC) [Ratio] 20.8 % High 11.5-15.0 [facility] Comment on above: Order Comment: Speci men Type: BLOOD SPECIMENOrdering Facility: [facility] Address: [address] [place] [address] Performed By: #### 5 8410-2 ####[facility] LABIA [id number] [place] [address] [place] Hematocrit (Bld) [Volume fraction] 38.1 % Low 39.0-51.0 [facility] Comment on above: Order Comment: Speci men Type: BLOOD SPECIMENOrdering Facility: [facility] Address: [address] [place] [address] Performed By: #### 5 8410-2 ####[facility] LABIA [id number] [address] [place] Hemoglobin (Bld) [Mass/Vol] 12.0 g/dL Low 13.0-17.0 [facility] Comment on above: Order Comment: Speci men Type: BLOOD SPECIMENOrdering Facility: [facility] Address: [address] [place] [address] Performed By: #### 5 8410-2 ####[facility] LABIA [id number] [place] [address] [place] MCH (RBC) [Entitic mass] 25.6 pg Low 26.0-34.0 [facility] Comment on above: Order Comment: Speci men Type: BLOOD SPECIMENOrdering Facility: [facility] Address: [address] [place] [address] Performed By: #### 5 8410-2 ####[facility] LABIA [id number] [place] [address] [place] MCHC (RBC) [Mass/Vol] 31.5 g/dL Normal 30.5-36.0 [facility] Comment on above: Order Comment: Speci men Type: BLOOD SPECIMENOrdering Facility: [facility] Address: [address] Performed By: #### 5 8410-2 ####[facility] [id number] [place] [address] [place] MCV (RBC) [Entitic vol] 81.2 fL Normal 80.0-100.0 [facility] Comment on above: Order Comment: Speci men Type: BLOOD SPECIMENOrdering Facility: [facility] Address: [address] Performed By: #### 5 8410-2 ####[facility] [id number] [place] [address] [place] Nucleated RBC (Bld) [#/Vol] 0.02 10*3/uL High <0.01 [facility] Comment on above: Order Comment: Speci men Type: BLOOD SPECIMENOrdering Facility: [facility] Address: [address] Performed By: #### 5 8410-2 ####[facility] [id number] [place] [address] [place] Platelet mean volume (Bld) [Entitic vol] 9.5 fL Normal 9.0-12.7 [facility] Comment on above: Order Comment: Speci men Type: BLOOD SPECIMENOrdering Facility: [facility] Address: [address] [place] [address] Performed By: #### 5 8410-2 ####[facility] [id number] [place] [address] [place] Platelets (Bld) [#/Vol] 244 10*3/uL Normal 150-400 [facility] Comment on above: Order Comment: Speci men Type: BLOOD SPECIMENOrdering Facility: [facility] Address: [address] Performed By: #### 5 8410-2 ####[facility] LABCLIA [id number] [place] [address] [place] RBC (Bld) [#/Vol] 4.69 10*6/uL Normal 4.20-6.00 [facility] Comment on above: Order Comment: Speci men Type: BLOOD SPECIMENOrdering Facility: [facility] Address: [address] [address] Performed By: #### 5 8410-2 ####[facility] LABIA [id number] [place] [address] [place] WBC (Bld) [#/Vol] 10.45 10*3/uL Normal 3.70-11.00 [facility] Comment on above: Order Comment: Speci men Type: BLOOD SPECIMENOrdering Facility: [facility] Address: [address] [place] [address] Performed By: #### 5 8410-2 ####[facility] LABIA [id number] [place] [address] [place] CONSULT PROGon 03-25-2023 CONSULT PROG Normal [facility] PT EDon 03-25-2023 PT ED Normal [facility] PT panel Coag (PPP)on 2022 INR Coag (PPP) [Relative time] 2.9 {INR} High 0.9-1.3 [facility] Comment on above: Order Comment: Speci men Type: BLOOD SPECIMENOrdering Facility: [facility] Address: [address] [place] [address] Result Comment: Baylee min K Antagonist (VKA) Therapeutic Range: INR 2 to 3 (Target INR of 2.5)Note: For patients treated with VKA drugs, such as warfarin, the [place] [employer] 2012 Guideline recommends [...] al. Chest 2012, 141:7S-47STrudy RA, et al. [facility] 2017, 70: 252-289 Performed By: #### 3 4528-0 ####[facility] LABCLIA [id number] [place] [address] [place] PT Coag (PPP) [Time] 28.7 s High 9.7-13.0 [facility] Comment on above: Order Comment: Joseline clemons Type: BLOOD SPECIMENOrdering Facility: [facility] Address: [address] [place] [address] Performed By: #### 3 4528-0 ####[facility] [id number] [place] [address] [place] THERAPY NTon 03-25-2023 THERAPY NT Normal [facility] CBC panel Auto (Bld)on 03-24 Erythrocyte distribution width (RBC) [Ratio] 20.3 % High 11.5-15.0 [facility] Comment on above: Order Comment: Joseline clemons Type: BLOOD SPECIMENOrdering Facility: [facility] Address: [address] [place] [address] Performed By: #### 5 8410-2 ####[facility] LABIA [id number] [address] Hematocrit (Bld) [Volume fraction] 36.6 % Low 39.0-51.0 [facility] Comment on above: Order Comment: Joseline clemons Type: BLOOD SPECIMENOrdering Facility: [facility] Address: [address] [place] [address] Performed By: #### 5 8410-2 ####[facility] LABIA [id number] [address] STATES OF [facility] Hemoglobin (Bld) [Mass/Vol] 11.3 g/dL Low 13.0-17.0 [facility] Comment on above: Order Comment: Speci men Type: BLOOD SPECIMENOrdering Facility: [facility] Address: [address] [place] [address] Performed By: #### 5 8410-2 ####[facility] [id number] [address] [place] MCH (RBC) [Entitic mass] 24.8 pg Low 26.0-34.0 [facility] Comment on above: Order Comment: Speci men Type: BLOOD SPECIMENOrdering Facility: [facility] Address: [address] [place] [address] Performed By: #### 5 8410-2 ####[facility] [id number] [address] MCHC (RBC) [Mass/Vol] 30.9 g/dL Normal 30.5-36.0 [facility] Comment on above: Order Comment: Speci men Type: BLOOD SPECIMENOrdering Facility: [facility] Address: [address] [place] [address] Performed By: #### 5 8410-2 ####[facility] [id number] [address] [place] MCV (RBC) [Entitic vol] 80.4 fL Normal 80.0-100.0 [facility] Comment on above: Order Comment: Speci men Type: BLOOD SPECIMENOrdering Facility: [facility] Address: [address] [place] [address] Performed By: #### 5 8410-2 ####[facility] [id number] [address] [id number] [address] [place] Nucleated RBC (Bld) [#/Vol] 0.02 10*3/uL High <0.01 [facility] Comment on above: Order Comment: Speci men Type: BLOOD SPECIMENOrdering Facility: [facility] Address: [address] [place], [place] [address] Performed By: #### 5 8410-2 ####[facility] LABCLIA [id number] [place] [address] [place] Platelet mean volume (Bld) [Entitic vol] 10.1 fL Normal 9.0-12.7 [facility] Comment on above: Order Comment: Speci men Type: BLOOD SPECIMENOrdering Facility: [facility] Address: [address] [place], [place] [address] Performed By: #### 5 8410-2 ####[facility] LABCLIA [id number] [place] [address] [place] Platelets (Bld) [#/Vol] 227 10*3/uL Normal 150-400 [facility] Comment on above: Order Comment: Speci men Type: BLOOD SPECIMENOrdering Facility: [facility] Address: [address] [place], [place] [address] Performed By: #### 5 8410-2 ####[facility] LABIA [id number] [place] [address] [place] RBC (Bld) [#/Vol] 4.55 10*6/uL Normal 4.20-6.00 [facility] Comment on above: Order Comment: Speci men Type: BLOOD SPECIMENOrdering Facility: [facility] Address: [address] [place], [place] [address] Performed By: #### 5 8410-2 ####[facility] LABCLIA [id number] [place] [address] [place] WBC (Bld) [#/Vol] 9.91 10*3/uL Normal 3.70-11.00 [facility] Comment on above: Order Comment: Speci men Type: BLOOD SPECIMENOrdering Facility: [facility] Address: [address] [id number] Performed By: #### 5 8410-2 ####[facility] LABCLIA [id number] DIOGO CALDWELL [id number] [place] [address] [place] CONSULTon 03-24-2023 CONSULT Normal [facility] CONSULT PROGon 03-24-2023 CONSULT PROG Normal [facility] ICD CLINIC CHECKon 3 [place]erico RV Pacing Amplitude (volts) 2.0 V [facility] Federico RV Pacing Polarity BI [facility] Federico RV Pacing Pulse Width (ms) 0.4 ms [facility] Federico RV Sensing Amplitude (mvolts) 0.6 mV [facility] Federico RV Sensing Polarity BI [facility] Detection Configuration (Vent) 1 - Zone [facility] FastVT_Detection Interval 333 ms [facility] ICD FastVT DetectionStatus ENABLED [facility] ICD-ATP Episodes (Vent) 0 [facility] ICD-Device Mfg BSX [facility] ICD-Percent Pacing (Vent) 0 % [facility] ICD-Rhythm Normal Sinus Rhythm [facility] ICD-Shocks Aborted (Vent) 0 [facility] [id number] 0 [facility] ICD-SHOCKSABORTED 0 [facility] ICD-SHOCKSDELIVEREDVE NTRICULAR 0 [facility] ICD-Ventricular Fibrillation 0 [facility] Lead Impedance (RV) 505 ohm [facility] Lead Impedance High Voltage 93 ohm [facility] Lead1 Mfg BSX [facility] Location RV [facility] Lower Rate (bpm) 40 {beats}/min [facility] MDT_PROG_TACHY_ZONE_D ETECTIONS_STATUS ENABLED [facility] Model D150 DYNAGEN [facility] Model 0292 [employer] Relianc e 4-Site SG [facility] Pacemaker Dependent? NO [facility] Pacing Mode VVI [facility] Serial Number [id number] [facility] Serial Number [id number] [facility] Test Charge Time 11.0 s [facility] Therapy Status (Vent) Enabled [facility] Thresh RV Capture Amplitude (VOLTS) 0.6 V [facility] Thresh RV Capture Duration (MS) 0.4 ms [facility] VF Zone Detection Interval 273 ms [facility] VF Zone Therapy Configuration 1 ATP(s) + 8 Shock(s) [facility] NUTRITIONon 03-24-2023 NUTRITION Normal [facility] No Panel Informationon 03-24 BLANK _ [facility] ICD-Fast Ventricular Tachycardia 0 [facility] Implant Date 10/18/2017 [facility] PT panel Coag (PPP)on 2022 INR Coag (PPP) [Relative time] 2.5 {INR} High 0.9-1.3 [facility] Comment on above: Order Comment: Joseline clemons Type: BLOOD SPECIMENOrdering Facility: [facility] Address: [address] Result Comment: Baylee min K Antagonist (VKA) Therapeutic Range: INR 2 to 3 (Target INR of 2.5)Note: For patients treated with VKA drugs, such as warfarin, the [place] [employer] 2012 Guideline recommends [...] al. Chest 2012, 141:7S-47SNishpeteura RA, et al. [facility] 2017, 70: 252-289 Performed By: #### 3 4528-0 ####[facility] LABCLIA [id number] [facility] [id number] [place] [address] [place] PT Coag (PPP) [Time] 24.8 s High 9.7-13.0 [facility] Comment on above: Order Comment: Joseline clemons Type: BLOOD SPECIMENOrdering Facility: [facility] Address: [address] [id number] Performed By: #### 3 4528-0 ####[facility] LABCLIA [id number] [place] [id number] [place] PVR ANK/VELASCO/TOE NACHO VAS LAB on 03-24-2023 PVR ANK/VELASCO/TOE NACHO VAS LAB Normal [facility] Prot Ur-mCncon 03-24-2023 Protein (U) [Mass/Vol] 8 mg/dL Normal 0-20 [facility] Comment on above: Order Comment: Speci men Type: URINE SPECIMENOrdering Facility: [facility] Address: [address] [address] Performed By: #### 2 888-6 ####[facility] LABIA [id number] [place] [address] [place] Basic metabolic 2000 panelon 03-23-2023 Anion gap [Moles/Vol] 12 mmol/L Normal 9-18 [facility] Comment on above: Order Comment: Speci men Type: BLOOD SPECIMENOrdering Facility: [facility] Address: [address] [address] Performed By: #### 2 4321-2, 2885-2 ####[facility] LABIA [id number] [place] [address] [place] Calcium [Mass/Vol] 9.6 mg/dL Normal 8.5-10.2 [facility] Comment on above: Order Comment: Speci men Type: BLOOD SPECIMENOrdering Facility: [facility] Address: [address] Performed By: #### 2 4321-2, 2885-2 ####[facility] LABIA [id number] [place] [address] [place] Chloride [Moles/Vol] 96 mmol/L Low 97-105 [facility] Comment on above: Order Comment: Speci men Type: BLOOD SPECIMENOrdering Facility: [facility] Address: [address] Performed By: #### 2 4321-2, 2884-2 ####[facility] LABCLIA [id number] [place] [address] [place] CO2 [Moles/Vol] 26 mmol/L Normal 22-30 [facility] Comment on above: Order Comment: Speci men Type: BLOOD SPECIMENOrdering Facility: [facility] Address: [address] [place] [address] Performed By: #### 2 4320-2, 2884-2 ####[facility] LABCLIA [id number] [place] [address] [place] Creatinine [Mass/Vol] 2.07 mg/dL High 0.73-1.22 [facility] Comment on above: Order Comment: Speci men Type: BLOOD SPECIMENOrdering Facility: [facility] Address: [address] [place] [address] Performed By: #### 2 4320-2, 2 ####[facility] LABIA [id number] [place] [address] [place] Creatinine and Glomerular filtration rate.predicted panel (S/P/Bld) 35 mL/min/1.73m??? Low >=60 [facility] Comment on above: Order Comment: Speci men Type: BLOOD SPECIMENOrdering Facility: [facility] Address: [address] [place] [address] Result Comment: Syl mated Glomerular Filtration Rate [...] actual GFR. Performed By: #### 2 4321-2, 2884-2 ####[facility] LABCLIA [id number] [place] [address] [place] Glucose [Mass/Vol] 123 mg/dL High 74-99 [facility] Comment on above: Order Comment: Speci men Type: BLOOD SPECIMENOrdering Facility: [facility] Address: [address] [place], [place] [id number] Result Comment: The [place] [employer] (ADA) provides guidance for cutoff [...] Standards of Medical Care in Diabetes 2016, [place] [employer]. Diabetes Care. 2016.39(Suppl 1). Performed By: #### 2 4321-2, 2884-2 ####[facility] LABCLIA [id number] [place] [address] [place] Potassium [Moles/Vol] 5.0 mmol/L Normal 3.7-5.1 [facility] Comment on above: Order Comment: Reneei men Type: BLOOD SPECIMENOrdering Facility: [facility] Address: [address] [place] [address] Performed By: #### 2 4321-2, 2884-2 ####[facility] LABCLIA [id number] [place] [address] [place] Sodium [Moles/Vol] 134 mmol/L Low 136-144 [facility] Comment on above: Order Comment: Speci men Type: BLOOD SPECIMENOrdering Facility: [facility] Address: [address] [place] [address] Performed By: #### 2 4321-2, 2884-2 ####[facility] LABCLIA [id number] [place] [address] [place] Urea nitrogen [Mass/Vol] 57 mg/dL High 9-24 [facility] Comment on above: Order Comment: Speci men Type: BLOOD SPECIMENOrdering Facility: [facility] Address: [address] [place] [address] Performed By: #### 2 4321-2, 2885-2 ####[facility] LABCLIA [id number] [place] [address] [place] CBC panel Auto (Bld)on 03-23 Erythrocyte distribution width (RBC) [Ratio] 20.3 % High 11.5-15.0 [facility] Comment on above: Order Comment: Speci men Type: BLOOD SPECIMENOrdering Facility: [facility] Address: [address] [place] [address] Performed By: #### 5 8410-2 ####[facility] LABCLIA [id number] [place] [address] [place] Hematocrit (Bld) [Volume fraction] 36.1 % Low 39.0-51.0 [facility] Comment on above: Order Comment: Speci men Type: BLOOD SPECIMENOrdering Facility: [facility] Address: [address] [place] [address] Performed By: #### 5 8410-2 ####[facility] LABCLIA [id number] [place] [address] [place] Hemoglobin (Bld) [Mass/Vol] 11.1 g/dL Low 13.0-17.0 [facility] Comment on above: Order Comment: Speci men Type: BLOOD SPECIMENOrdering Facility: [facility] Address: [address] [place] [address] Performed By: #### 5 8410-2 ####[facility] LABCLIA [id number] [place] [address] [place] MCH (RBC) [Entitic mass] 24.8 pg Low 26.0-34.0 [facility] Comment on above: Order Comment: Speci men Type: BLOOD SPECIMENOrdering Facility: [facility] Address: [address] Performed By: #### 5 8410-2 ####[facility] LABIA [id number] [place] [address] [place] MCHC (RBC) [Mass/Vol] 30.7 g/dL Normal 30.5-36.0 [facility] Comment on above: Order Comment: Speci men Type: BLOOD SPECIMENOrdering Facility: [facility] Address: [address] Performed By: #### 5 8410-2 ####[facility] LABIA [id number] [place] [address] [place] MCV (RBC) [Entitic vol] 80.6 fL Normal 80.0-100.0 [facility] Comment on above: Order Comment: Speci men Type: BLOOD SPECIMENOrdering Facility: [facility] Address: [address] Performed By: #### 5 8410-2 ####[facility] LABIA [id number] [place] [address] [place] Nucleated RBC (Bld) [#/Vol] 10*3/uL Normal <0.01 [facility] Comment on above: Order Comment: Speci men Type: BLOOD SPECIMENOrdering Facility: [facility] Address: [address] Performed By: #### 5 8410-2 ####[facility] LABIA [id number] [place] [address] [place] Platelet mean volume (Bld) [Entitic vol] 9.8 fL Normal 9.0-12.7 [facility] Comment on above: Order Comment: Speci men Type: BLOOD SPECIMENOrdering Facility: [facility] Address: [address] [place], [place] [address] Performed By: #### 5 8410-2 ####[facility] LABIA [id number] [place] [address] [place] Platelets (Bld) [#/Vol] 249 10*3/uL Normal 150-400 [facility] Comment on above: Order Comment: Speci men Type: BLOOD SPECIMENOrdering Facility: [facility] Address: [address] [place] [address] Performed By: #### 5 8410-2 ####[facility] LABIA [id number] [place] [address] [place] RBC (Bld) [#/Vol] 4.48 10*6/uL Normal 4.20-6.00 [facility] Comment on above: Order Comment: Speci men Type: BLOOD SPECIMENOrdering Facility: [facility] Address: [address] [place], [place] [address] Performed By: #### 5 8410-2 ####[facility] [id number] [place] [address] [place] WBC (Bld) [#/Vol] 8.92 10*3/uL Normal 3.70-11.00 [facility] Comment on above: Order Comment: Speci men Type: BLOOD SPECIMENOrdering Facility: [facility] Address: [address] [place] [id number] Performed By: #### 5 8410-2 ####[facility] LABIA [id number] [address] [place] [id number] [place] CONSULTon 03-23-2023 CONSULT Normal [facility] CONSULT Normal [facility] CRP SerPl-mCncon 03-23-2023 CRP [Mass/Vol] 3.0 mg/dL High <0.9 [facility] Comment on above: Order Comment: Speci men Type: BLOOD SPECIMENOrdering Facility: [facility] Address: [address] [place], [place] [address] Performed By: #### 1 988-5 ####[facility] [id number] [place] [address] [place] NM PET/CT CARD PERF REST/STR ESSon 03-23-2023 NM PET/CT CARD PERF REST/STRESS Normal [facility] NM PET/CT CARDIAC VIABILITYo n 03-23-2023 NM PET/CT CARDIAC VIABILITY Normal [facility] NURSING PROGon 03-23-2023 NURSING PROG Normal [facility] PT panel Coag (PPP)on 2022 INR Coag (PPP) [Relative time] 2.1 {INR} High 0.9-1.3 [facility] Comment on above: Order Comment: Joseline clemons Type: BLOOD SPECIMENOrdering Facility: [facility] Address: [address] [place] [address] Result Comment: Baylee min K Antagonist (VKA) Therapeutic Range: INR 2 to 3 (Target INR of 2.5)Note: For patients treated with VKA drugs, such as warfarin, the [place] [employer] 2012 Guideline recommends [...] 70: 252-289 Performed By: #### 3 4528-0 ####[facility] [id number] [place] [address] [place] PT Coag (PPP) [Time] 20.8 s High 9.7-13.0 [facility] Comment on above: Order Comment: Speci men Type: BLOOD SPECIMENOrdering Facility: [facility] Address: [address] [phone] Performed By: #### 3 4528-0 ####[facility] LABIA [id number] [place] [address] [place] Prot SerPl-mCncon 03-23-2023 Protein [Mass/Vol] 6.3 g/dL Normal 6.3-8.0 [facility] Comment on above: Order Comment: Speci men Type: BLOOD SPECIMENOrdering Facility: [facility] Address: [address] [place] [address] Performed By: #### 2 4321-2, 2885-2 ####[facility] LABIA [id number] [place] [address] [place] XR FOOT 3V AP/LAT/OBL RTon 0 03-23-2023 XR FOOT 3V AP/LAT/OBL RT Normal [facility] Bacteria Wnd Culton 03-22-20 23 Bacteria identified Cx Nom (Wound) Abnormal [facility] Comment on above: Performed By: #### 6 462-6 ####[facility] LABIA [id number] [place] [address] [place] Basic metabolic 2000 panelon 03-22-2023 Anion gap [Moles/Vol] 13 mmol/L Normal 9-18 [facility] Comment on above: Order Comment: Speci men Type: BLOOD SPECIMENOrdering Facility: [facility] Address: [address] [phone] Performed By: #### 2 4321-2 ####[facility] LABIA [id number] [place] [address] [place] Calcium [Mass/Vol] 9.6 mg/dL Normal 8.5-10.2 [facility] Comment on above: Order Comment: Speci men Type: BLOOD SPECIMENOrdering Facility: [facility] Address: [address] [place], [place] [phone] Performed By: #### 2 4321-2 ####[facility] LABCLIA [id number] [place] [address] [place] Chloride [Moles/Vol] 94 mmol/L Low 97-105 [facility] Comment on above: Order Comment: Speci men Type: BLOOD SPECIMENOrdering Facility: [facility] Address: [address] [place] [address] Performed By: #### 2 4321-2 ####[facility] LABCLIA [id number] [place] [address] [place] CO2 [Moles/Vol] 25 mmol/L Normal 22-30 [facility] Comment on above: Order Comment: Speci men Type: BLOOD SPECIMENOrdering Facility: [facility] Address: [address] [place] [address] Performed By: #### 2 4321-2 ####[facility] LABCLIA [id number] [place] [address] [place] Creatinine [Mass/Vol] 2.20 mg/dL High 0.73-1.22 [facility] Comment on above: Order Comment: Speci men Type: BLOOD SPECIMENOrdering Facility: [facility] Address: [address] [place] [address] Performed By: #### 2 4321-2 ####[facility] LABCLIA [id number] [place] [address] [place] ESTIMATED GLOMERULAR FILTRATION RATE 32 mL/min/1.73m??? Low >=60 [facility] Comment on above: Order Comment: Speci men Type: BLOOD SPECIMENOrdering Facility: [facility] Address: [address] [place] [address] Result Comment: Syl mated Glomerular Filtration Rate [...] actual GFR. Performed By: #### 2 4321-2 ####[facility] LABCLIA [id number] [place] [address] [place] Glucose [Mass/Vol] 120 mg/dL High 74-99 [facility] Comment on above: Order Comment: Speci men Type: BLOOD SPECIMENOrdering Facility: [facility] Address: [address] [phone] Result Comment: The [place] [employer] (ADA) provides guidance for cutoff [...] Standards of Medical Care in Diabetes 2016, [place] [employer]. Diabetes Care. 2016.39(Suppl 1). Performed By: #### 2 4321-2 ####[facility] LABCLIA [id number] [place] [address] [place] Potassium [Moles/Vol] 4.4 mmol/L Normal 3.7-5.1 [facility] Comment on above: Order Comment: Speci men Type: BLOOD SPECIMENOrdering Facility: [facility] Address: [address] [place] [address] Performed By: #### 2 4321-2 ####[facility] LABCLIA [id number] [place] [id number] [place] Sodium [Moles/Vol] 132 mmol/L Low 136-144 [facility] Comment on above: Order Comment: Speci men Type: BLOOD SPECIMENOrdering Facility: [facility] Address: [address] [place] [address] Performed By: #### 2 4321-2 ####[facility] LABCLIA [id number] [place] [address] [place] Urea nitrogen [Mass/Vol] 54 mg/dL High 9-24 [facility] Comment on above: Order Comment: Speci men Type: BLOOD SPECIMENOrdering Facility: [facility] Address: [address] [place] [address] Performed By: #### 2 4321-2 ####[facility] LABIA [id number] [address] [place] CASE MANAGEMon 03-22-2023 CASE MANAGEM Normal [facility] CBC panel Auto (Bld)on 03-22 Erythrocyte distribution width (RBC) [Ratio] 20.4 % High 11.5-15.0 [facility] Comment on above: Order Comment: Speci men Type: BLOOD SPECIMENOrdering Facility: [facility] Address: [address] [place] [address] Performed By: #### 5 8410-2 ####[facility] LABIA [id number] [place] [address] [place] Hematocrit (Bld) [Volume fraction] 36.5 % Low 39.0-51.0 [facility] Comment on above: Order Comment: Speci men Type: BLOOD SPECIMENOrdering Facility: [facility] Address: [address] [place], [place] [address] Performed By: #### 5 8410-2 ####[facility] LABIA [id number] [place] [address] [place] Hemoglobin (Bld) [Mass/Vol] 11.2 g/dL Low 13.0-17.0 [facility] Comment on above: Order Comment: Speci men Type: BLOOD SPECIMENOrdering Facility: [facility] Address: [address] Performed By: #### 5 8410-2 ####[facility] LABIA [id number] [address] MCH (RBC) [Entitic mass] 24.8 pg Low 26.0-34.0 [facility] Comment on above: Order Comment: Speci men Type: BLOOD SPECIMENOrdering Facility: [facility] Address: [address] Performed By: #### 5 8410-2 ####[facility] LABIA [id number] [address] [place] MCHC (RBC) [Mass/Vol] 30.7 g/dL Normal 30.5-36.0 [facility] Comment on above: Order Comment: Speci men Type: BLOOD SPECIMENOrdering Facility: [facility] Address: [address] Performed By: #### 5 8410-2 ####[facility] LABIA [id number] [address] [place] MCV (RBC) [Entitic vol] 80.9 fL Normal 80.0-100.0 [facility] Comment on above: Order Comment: Speci men Type: BLOOD SPECIMENOrdering Facility: [facility] Address: [address] Performed By: #### 5 8410-2 ####[facility] LABIA [id number] [address] [place] Nucleated RBC (Bld) [#/Vol] 0.02 10*3/uL High <0.01 [facility] Comment on above: Order Comment: Speci men Type: BLOOD SPECIMENOrdering Facility: [facility] Address: [address] Performed By: #### 5 8410-2 ####[facility] LABIA [id number] [place] [address] [place] Platelet mean volume (Bld) [Entitic vol] 10.0 fL Normal 9.0-12.7 [facility] Comment on above: Order Comment: Speci men Type: BLOOD SPECIMENOrdering Facility: [facility] Address: [address] [place] [address] Performed By: #### 5 8410-2 ####[facility] LABIA [id number] [place] [address] [place] Platelets (Bld) [#/Vol] 244 10*3/uL Normal 150-400 [facility] Comment on above: Order Comment: Speci men Type: BLOOD SPECIMENOrdering Facility: [facility] Address: [address] [place] [address] Performed By: #### 5 8410-2 ####[facility] LABIA [id number] [place] [address] [place] RBC (Bld) [#/Vol] 4.51 10*6/uL Normal 4.20-6.00 [facility] Comment on above: Order Comment: Speci men Type: BLOOD SPECIMENOrdering Facility: [facility] Address: [address] [place], [place] [address] Performed By: #### 5 8410-2 ####[facility] LABIA [id number] [place] [address] [place] WBC (Bld) [#/Vol] 8.57 10*3/uL Normal 3.70-11.00 [facility] Comment on above: Order Comment: Speci men Type: BLOOD SPECIMENOrdering Facility: [facility] Address: [address] [place], [place] [address] Performed By: #### 5 8410-2 ####[facility] LABCLIA [id number] [place] [address] [place] ALBUMIN/CREAT RATIO RND URon 03-21-2023 Albumin DL <= 20 mg/L (U) [Mass/Vol] 32.9 mg/L Normal [facility] Comment on above: Order Comment: Speci men Type: URINE SPECIMENOrdering Facility: [facility] Address: [address] [place] [address] Performed By: #### U ACR, [id number] ####[facility] LABCLIA [id number] [place] [address] [place] Albumin/Creatinine (U) [Mass ratio] 110 mg/g High <30 [facility] Comment on above: Order Comment: Speci men Type: URINE SPECIMENOrdering Facility: [facility] Address: [address] [place] [address] Result Comment: Adul t Male and Female Nephrotic Criteria:<30 mg/g is considered normal to mildly sttrgeddb97-768 mg/g is considered moderately increased>300 mg/g is considered severely increasedKDIGO. (2013). KDIGO 2012 Clinical Practice Guideline for the Evaluation and Management of Chronic Kidney Disease. Official Journal of the International Society of Nephrology, 3(1), 1-150. Performed By: #### U ACR, [id number] ####[facility] LABCLIA [id number] [place] [address] [place] Creatinine (U) [Mass/Vol] 29.9 mg/dL Normal 20.0-300.0 [facility] Comment on above: Order Comment: Speci men Type: URINE SPECIMENOrdering Facility: [facility] Address: [address] [place] [address] Performed By: #### U ACR, [id number] ####[facility] LABCLIA [id number] [place] [address] [place] Bacteria Bld Culton 03-21-20 23 Bacteria identified Cx Nom (Bld) CULTURE, BLOOD: No growth 5 days Normal [facility] Comment on above: Performed By: #### 6 00-7 ####[facility] LABCLIA [id number] [address] [address] [place] Basic metabolic 2000 panelon 03-21-2023 Anion gap [Moles/Vol] 15 mmol/L Normal 9-18 [facility] Comment on above: Order Comment: Speci men Type: BLOOD SPECIMENOrdering Facility: [facility] Address: [address] [place] [address] Performed By: #### 2 4321-2, 3016-3, [id number], 2532-0 ####[facility] LABCLIA [id number] [place] [address] [place] Calcium [Mass/Vol] 9.5 mg/dL Normal 8.5-10.2 [facility] Comment on above: Order Comment: Speci men Type: BLOOD SPECIMENOrdering Facility: [facility] Address: [address] [place] [address] Performed By: #### 2 4321-2, 6-3, [id number], 2532-0 ####[facility] LABCLIA [id number] [place] [address] [place] Chloride [Moles/Vol] 95 mmol/L Low 97-105 [facility] Comment on above: Order Comment: Speci men Type: BLOOD SPECIMENOrdering Facility: [facility] Address: [address] [place], [place] [address] Performed By: #### 2 4321-2, 6-3, [id number], 2532-0 ####[facility] LABCLIA [id number] [place] [id number] [place] CO2 [Moles/Vol] 25 mmol/L Normal 22-30 [facility] Comment on above: Order Comment: Speci men Type: BLOOD SPECIMENOrdering Facility: [facility] Address: [address] [place] [address] Performed By: #### 2 4321-2, 3016-3, [id number], 2532-0 ####[facility] LABCLIA [id number] [place] [address] [place] Creatinine [Mass/Vol] 2.13 mg/dL High 0.73-1.22 [facility] Comment on above: Order Comment: Speci men Type: BLOOD SPECIMENOrdering Facility: [facility] Address: [address] [address] Performed By: #### 2 4321-2, 3016-3, [id number], 2532-0 ####[facility] LABCLIA [id number] [place] [address] [place] ESTIMATED GLOMERULAR FILTRATION RATE 34 mL/min/1.73m??? Low >=60 [facility] Comment on above: Order Comment: Joseline clemons Type: BLOOD SPECIMENOrdering Facility: [facility] Address: [address] [place] [address] Result Comment: Syl mated Glomerular Filtration Rate [...] GFR. Performed By: #### 2 4321-2, 3016-3, [id number], 2532-0 ####[facility] LABCLIA [id number] [place] [address] [place] Glucose [Mass/Vol] 49 mg/dL Low 74-99 [facility] Comment on above: Order Comment: Speci men Type: BLOOD SPECIMENOrdering Facility: [facility] Address: [address] [address] Result Comment: The [place] [employer] (ADA) provides guidance for cutoff [...] Standards of Medical Care in Diabetes 2016, [place] [employer]. Diabetes Care. 2016.39(Suppl 1). Performed By: #### 2 4321-2, 3016-3, [id number], 2532-0 ####[facility] LABCLIA [id number] [place] [address] [place] Potassium [Moles/Vol] 4.6 mmol/L Normal 3.7-5.1 [facility] Comment on above: Order Comment: Speci men Type: BLOOD SPECIMENOrdering Facility: [facility] Address: [address] [place] [address] Performed By: #### 2 4321-2, 6-3, [id number], 253-0 ####[facility] LABCLIA [id number] [place] [address] [place] Sodium [Moles/Vol] 135 mmol/L Low 136-144 [facility] Comment on above: Order Comment: Reneei men Type: BLOOD SPECIMENOrdering Facility: [facility] Address: [address] [place] [address] Performed By: #### 2 4321-2, 6-3, [id number], 2531-0 ####[facility] LABCLIA [id number] [place] [address] [place] Urea nitrogen [Mass/Vol] 52 mg/dL High 9-24 [facility] Comment on above: Order Comment: Speci men Type: BLOOD SPECIMENOrdering Facility: [facility] Address: [address] [place] [address] Performed By: #### 2 4321-2, 6-3, AIT1005, 2532-0 ####[facility] LABCLIA [id number] [place] [address] [place] CASE MGT INIT ASSESon 2022 CASE MGT INIT ASSES Normal [facility] CBC W Auto Differential pane l (Bld)on 03-21-2023 Basophils (Bld) [#/Vol] 0.07 10*3/uL Normal <0.11 [facility] Comment on above: Order Comment: Speci men Type: BLOOD SPECIMENOrdering Facility: [facility] Address: [address] [place] [address] Performed By: #### 5 7021-8 ####[facility] LABCLIA [id number] [place] [address] [place] Basophils/100 WBC (Bld) 0.8 % Normal [facility] Comment on above: Order Comment: Speci men Type: BLOOD SPECIMENOrdering Facility: [facility] Address: [address] [place] [address] Performed By: #### 5 7021-8 ####[facility] LABCLIA [id number] [place] [address] [place] Differential cell count method Nom (Bld) Auto Normal [facility] Comment on above: Order Comment: Speci men Type: BLOOD SPECIMENOrdering Facility: [facility] Address: [address] [place] [address] Performed By: #### 5 7021-8 ####[facility] LABCLIA [id number] [place] [address] [place] Eosinophils (Bld) [#/Vol] 0.19 10*3/uL Normal <0.46 [facility] Comment on above: Order Comment: Speci men Type: BLOOD SPECIMENOrdering Facility: [facility] Address: [address] [place], [place] [address] Performed By: #### 5 7021-8 ####[facility] LABCLIA [id number] [address] [id number] [address] [place] Eosinophils/100 WBC (Bld) 2.2 % Normal [facility] Comment on above: Order Comment: Speci men Type: BLOOD SPECIMENOrdering Facility: [facility] Address: [address] [place] [address] Performed By: #### 5 7021-8 ####[facility] LABCLIA [id number] [place] [address] [place] Erythrocyte distribution width (RBC) [Ratio] 20.3 % High 11.5-15.0 [facility] Comment on above: Order Comment: Speci men Type: BLOOD SPECIMENOrdering Facility: [facility] Address: [address] [place] [address] Performed By: #### 5 7021-8 ####[facility] LABCLIA [id number] [place] [address] [place] Hematocrit (Bld) [Volume fraction] 36.3 % Low 39.0-51.0 [facility] Comment on above: Order Comment: Speci men Type: BLOOD SPECIMENOrdering Facility: [facility] Address: [address] [place] [address] Performed By: #### 5 7021-8 ####[facility] LABIA [id number] [place] [address] [place] Hemoglobin (Bld) [Mass/Vol] 11.2 g/dL Low 13.0-17.0 [facility] Comment on above: Order Comment: Speci men Type: BLOOD SPECIMENOrdering Facility: [facility] Address: [address] [place], [place] [address] Performed By: #### 5 7021-8 ####[facility] LABCLIA [id number] [place] [address] [place] Immature granulocytes (Bld) [#/Vol] 0.04 10*3/uL Normal <0.10 [facility] Comment on above: Order Comment: Speci men Type: BLOOD SPECIMENOrdering Facility: [facility] Address: [address] [address] Performed By: #### 5 7021-8 ####[facility] LABCLIA [id number] [address] Immature granulocytes/100 WBC (Bld) 0.5 % Normal [facility] Comment on above: Order Comment: Speci men Type: BLOOD SPECIMENOrdering Facility: [facility] Address: [address] [address] Performed By: #### 5 7021-8 ####[facility] LABIA [id number] [place] [address] [place] Lymphocytes (Bld) [#/Vol] 0.75 10*3/uL Low 1.00-4.00 [facility] Comment on above: Order Comment: Speci men Type: BLOOD SPECIMENOrdering Facility: [facility] Address: [address] [address] Performed By: #### 5 7021-8 ####[facility] LABCLIA [id number] [address] [place] [facility] Lymphocytes/100 WBC (Bld) 8.9 % Normal [facility] Comment on above: Order Comment: Speci men Type: BLOOD SPECIMENOrdering Facility: [facility] Address: [address] [place], [place] [address] Performed By: #### 5 7021-8 ####[facility] LABCLIA [id number] [place] [address] [place] MCH (RBC) [Entitic mass] 24.9 pg Low 26.0-34.0 [facility] Comment on above: Order Comment: Speci men Type: BLOOD SPECIMENOrdering Facility: [facility] Address: [address] [place] [address] Performed By: #### 5 7021-8 ####[facility] LABCLIA [id number] [place] [address] [place] MCHC (RBC) [Mass/Vol] 30.9 g/dL Normal 30.5-36.0 [facility] Comment on above: Order Comment: Speci men Type: BLOOD SPECIMENOrdering Facility: [facility] Address: [address] [place] [address] Performed By: #### 5 7021-8 ####[facility] LABIA [id number] [place] [address] [place] MCV (RBC) [Entitic vol] 80.7 fL Normal 80.0-100.0 [facility] Comment on above: Order Comment: Speci men Type: BLOOD SPECIMENOrdering Facility: [facility] Address: [address] [place] [address] Performed By: #### 5 7021-8 ####[facility] LABIA [id number] [place] [address] [place] Monocytes (Bld) [#/Vol] 0.70 10*3/uL Normal <0.87 [facility] Comment on above: Order Comment: Speci men Type: BLOOD SPECIMENOrdering Facility: [facility] Address: [address] [place] [address] Performed By: #### 5 7021-8 ####[facility] LABIA [id number] [place] [address] [place] Monocytes/100 WBC (Bld) 8.3 % Normal [facility] Comment on above: Order Comment: Speci men Type: BLOOD SPECIMENOrdering Facility: [facility] Address: [address] [place], [place] [address] Performed By: #### 5 7021-8 ####[facility] LABCLIA [id number] [place] [address] [place] Neutrophils (Bld) [#/Vol] 6.71 10*3/uL Normal 1.45-7.50 [facility] Comment on above: Order Comment: Speci men Type: BLOOD SPECIMENOrdering Facility: [facility] Address: [address] Performed By: #### 5 7021-8 ####[facility] LABCLIA [id number] [place] [address] [place] Neutrophils/100 WBC (Bld) 79.3 % Normal [facility] Comment on above: Order Comment: Speci men Type: BLOOD SPECIMENOrdering Facility: [facility] Address: [address] Performed By: #### 5 7021-8 ####[facility] LABIA [id number] [place] [address] [place] Nucleated RBC (Bld) [#/Vol] 0.03 10*3/uL High <0.01 [facility] Comment on above: Order Comment: Speci men Type: BLOOD SPECIMENOrdering Facility: [facility] Address: [address] Performed By: #### 5 7021-8 ####[facility] LABIA [id number] [place] [address] [place] Nucleated RBC/100 WBC (Bld) [Ratio] 0.4 /100 WBC Normal [facility] Comment on above: Order Comment: Speci men Type: BLOOD SPECIMENOrdering Facility: [facility] Address: [address] Performed By: #### 5 7021-8 ####[facility] LABIA [id number] [place] [address] [place] Platelet mean volume (Bld) [Entitic vol] 9.4 fL Normal 9.0-12.7 [facility] Comment on above: Order Comment: Speci men Type: BLOOD SPECIMENOrdering Facility: [facility] Address: [address] Performed By: #### 5 7021-8 ####[facility] LABIA [id number] [place] [address] [place] Platelets (Bld) [#/Vol] 255 10*3/uL Normal 150-400 [facility] Comment on above: Order Comment: Speci men Type: BLOOD SPECIMENOrdering Facility: [facility] Address: [address] [place], [place] [address] Performed By: #### 5 7021-8 ####[facility] LABIA [id number] [place] [address] [place] RBC (Bld) [#/Vol] 4.50 10*6/uL Normal 4.20-6.00 [facility] Comment on above: Order Comment: Speci men Type: BLOOD SPECIMENOrdering Facility: [facility] Address: [address] [place], [place] [address] Performed By: #### 5 7021-8 ####[facility] [id number] [place] [address] [place] WBC (Bld) [#/Vol] 8.46 10*3/uL Normal 3.70-11.00 [facility] Comment on above: Order Comment: Speci men Type: BLOOD SPECIMENOrdering Facility: [facility] Address: [address] [place], [place] [address] Performed By: #### 5 7021-8 ####[facility] LABIA [id number] [place] [address] [place] CBC panel Auto (Bld)on 03-21 Erythrocyte distribution width (RBC) [Ratio] 20.3 % High 11.5-15.0 [facility] Comment on above: Order Comment: Speci men Type: BLOOD SPECIMENOrdering Facility: [facility] Address: [address] [place], [place] [address] Performed By: #### 5 8410-2 ####[facility] [id number] [place] [address] [place] Hematocrit (Bld) [Volume fraction] 38.6 % Low 39.0-51.0 [facility] Comment on above: Order Comment: Speci men Type: BLOOD SPECIMENOrdering Facility: [facility] Address: [address] [place] [address] Performed By: #### 5 8410-2 ####[facility] [id number] [place] [address] [place] Hemoglobin (Bld) [Mass/Vol] 11.6 g/dL Low 13.0-17.0 [facility] Comment on above: Order Comment: Speci men Type: BLOOD SPECIMENOrdering Facility: [facility] Address: [address] [place] [address] Performed By: #### 5 8410-2 ####[facility] [id number] [address] [place] MCH (RBC) [Entitic mass] 24.7 pg Low 26.0-34.0 [facility] Comment on above: Order Comment: Speci men Type: BLOOD SPECIMENOrdering Facility: [facility] Address: [address] [place] [address] Performed By: #### 5 8410-2 ####[facility] [id number] [place] [address] [place] MCHC (RBC) [Mass/Vol] 30.1 g/dL Low 30.5-36.0 [facility] Comment on above: Order Comment: Speci men Type: BLOOD SPECIMENOrdering Facility: [facility] Address: [address] [place] [address] Performed By: #### 5 8410-2 ####[facility] [id number] [place] [address] [place] MCV (RBC) [Entitic vol] 82.1 fL Normal 80.0-100.0 [facility] Comment on above: Order Comment: Speci men Type: BLOOD SPECIMENOrdering Facility: [facility] Address: [address] [place], [place] [address] Performed By: #### 5 8410-2 ####[facility] LABCLIA [id number] [place] [address] [place] Nucleated RBC (Bld) [#/Vol] 0.03 10*3/uL High <0.01 [facility] Comment on above: Order Comment: Speci men Type: BLOOD SPECIMENOrdering Facility: [facility] Address: [address] [place], [place] [address] Performed By: #### 5 8410-2 ####[facility] LABIA [id number] [place] [address] [place] Platelet mean volume (Bld) [Entitic vol] 9.5 fL Normal 9.0-12.7 [facility] Comment on above: Order Comment: Speci men Type: BLOOD SPECIMENOrdering Facility: [facility] Address: [address] [place], [place] [address] Performed By: #### 5 8410-2 ####[facility] LABIA [id number] [place] [address] [place] Platelets (Bld) [#/Vol] 265 10*3/uL Normal 150-400 [facility] Comment on above: Order Comment: Speci men Type: BLOOD SPECIMENOrdering Facility: [facility] Address: [address] [place], [place] [address] Performed By: #### 5 8410-2 ####[facility] LABCLIA [id number] [place] [address] [place] RBC (Bld) [#/Vol] 4.70 10*6/uL Normal 4.20-6.00 [facility] Comment on above: Order Comment: Speci men Type: BLOOD SPECIMENOrdering Facility: [facility] Address: [address] Performed By: #### 5 8410-2 ####[facility] LABIA [id number] [place] [address] [place] WBC (Bld) [#/Vol] 8.61 10*3/uL Normal 3.70-11.00 [facility] Comment on above: Order Comment: Speci men Type: BLOOD SPECIMENOrdering Facility: [facility] Address: [address] [place], [place] [address] Performed By: #### 5 8410-2 ####[facility] LABIA [id number] [place] [address] [place] CRP SerPl-ncon 03-21-2023 CRP [Mass/Vol] 2.1 mg/dL High <0.9 [facility] Comment on above: Order Comment: Speci men Type: BLOOD SPECIMENOrdering Facility: [facility] Address: [address] [place], [place] [address] Performed By: #### 1 988-5 ####[facility] [id number] [place] [address] [place] Comprehensive metabolic 2000 panelon 03-21-2023 Albumin [Mass/Vol] 3.6 g/dL Low 3.9-4.9 [facility] Comment on above: Order Comment: Speci men Type: BLOOD SPECIMENOrdering Facility: [facility] Address: [address] [place], [place] [address] Performed By: #### 2 4323-8 ####[facility] LABIA [id number] [place] [address] [place] ALP [Catalytic activity/Vol] 159 U/L High 38-113 [facility] Comment on above: Order Comment: Speci men Type: BLOOD SPECIMENOrdering Facility: [facility] Address: [address] [place], [place] [address] Performed By: #### 2 4323-8 ####[facility] LABCLIA [id number] [place] [address] [place] ALT [Catalytic activity/Vol] 17 U/L Normal 10-54 [facility] Comment on above: Order Comment: Speci men Type: BLOOD SPECIMENOrdering Facility: [facility] Address: [address] [place], [place] [address] Performed By: #### 2 4323-8 ####[facility] LABCLIA [id number] [place] [address] [place] Anion gap [Moles/Vol] 12 mmol/L Normal 9-18 [facility] Comment on above: Order Comment: Speci men Type: BLOOD SPECIMENOrdering Facility: [facility] Address: [address] [place] [address] Performed By: #### 2 4323-8 ####[facility] LABCLIA [id number] [address] [place] AST [Catalytic activity/Vol] 19 U/L Normal 14-40 [facility] Comment on above: Order Comment: Speci men Type: BLOOD SPECIMENOrdering Facility: [facility] Address: [address] [place] [id number] Performed By: #### 2 4323-8 ####[facility] LABCLIA [id number] [place] [address] [place] Bilirubin [Mass/Vol] 2.2 mg/dL High 0.2-1.3 [facility] Comment on above: Order Comment: Speci men Type: BLOOD SPECIMENOrdering Facility: [facility] Address: [address] [place] [address] Performed By: #### 2 4323-8 ####[facility] LABCLIA [id number] [place] [address] [place] Calcium [Mass/Vol] 9.6 mg/dL Normal 8.5-10.2 [facility] Comment on above: Order Comment: Speci men Type: BLOOD SPECIMENOrdering Facility: [facility] Address: [address] [place], [place] [address] Performed By: #### 2 4323-8 ####[facility] LABCLIA [id number] [place] [address] [place] Chloride [Moles/Vol] 96 mmol/L Low 97-105 [facility] Comment on above: Order Comment: Speci men Type: BLOOD SPECIMENOrdering Facility: [facility] Address: [address] [address] Performed By: #### 2 4323-8 ####[facility] LABCLIA [id number] [place] [address] [place] CO2 [Moles/Vol] 26 mmol/L Normal 22-30 [facility] Comment on above: Order Comment: Speci men Type: BLOOD SPECIMENOrdering Facility: [facility] Address: [address] [place], [place] [address] Performed By: #### 2 4323-8 ####[facility] LABCLIA [id number] [place] [address] [place] Creatinine [Mass/Vol] 2.11 mg/dL High 0.73-1.22 [facility] Comment on above: Order Comment: Speci men Type: BLOOD SPECIMENOrdering Facility: [facility] Address: [address] Performed By: #### 2 4323-8 ####[facility] LABCLIA [id number] [place] [address] [place] ESTIMATED GLOMERULAR FILTRATION RATE 34 mL/min/1.73m??? Low >=60 [facility] Comment on above: Order Comment: Speci men Type: BLOOD SPECIMENOrdering Facility: [facility] Address: [address] [place], [place] [address] Result Comment: Syl mated Glomerular Filtration Rate [...] actual GFR. Performed By: #### 2 4323-8 ####[facility] LABCLIA [id number] [place] [address] [place] Glucose [Mass/Vol] 133 mg/dL High 74-99 [facility] Comment on above: Order Comment: Joseline clemons Type: BLOOD SPECIMENOrdering Facility: [facility] Address: [address] [address] Result Comment: The [place] Diabetes [employer] (ADA) provides guidance for cutoff [...] Standards of Medical Care in Diabetes 2016, [place] [employer]. Diabetes Care. 2016.39(Suppl 1). Performed By: #### 2 4323-8 ####[facility] LABIA [id number] [place] [address] [place] Potassium [Moles/Vol] 4.6 mmol/L Normal 3.7-5.1 [facility] Comment on above: Order Comment: Joseline clemons Type: BLOOD SPECIMENOrdering Facility: [facility] Address: [address] [id number] Performed By: #### 2 4323-8 ####[facility] LABIA [id number] [address] [place] Protein [Mass/Vol] 6.4 g/dL Normal 6.3-8.0 [facility] Comment on above: Order Comment: Speci men Type: BLOOD SPECIMENOrdering Facility: [facility] Address: [address] [address] Performed By: #### 2 4323-8 ####[facility] LABCLIA [id number] [place] [address] [place] Sodium [Moles/Vol] 134 mmol/L Low 136-144 [facility] Comment on above: Order Comment: Speci men Type: BLOOD SPECIMENOrdering Facility: [facility] Address: [address] [address] Performed By: #### 2 4323-8 ####[facility] LABIA [id number] [place] [address] [place] Urea nitrogen [Mass/Vol] 53 mg/dL High 9-24 [facility] Comment on above: Order Comment: Speci men Type: BLOOD SPECIMENOrdering Facility: [facility] Address: [address] [place] [address] Performed By: #### 2 4323-8 ####[facility] LABCLIA [id number] [place] [address] [place] ESR Westergren method (Bld) [Velocity]on 03-21-2023 ESR (Bld) [Velocity] 5 mm/h Normal 0-15 [facility] Comment on above: Order Comment: Speci men Type: BLOOD SPECIMENOrdering Facility: [facility] Address: [address] Performed By: #### 4 537-7 ####[facility] LABIA [id number] [place] [address] [place] HbA1c (Bld)on 03-21-2023 Average glucose Estimated from glycated hemoglobin (Bld) [Mass/Vol] 160 mg/dL Normal [facility] Comment on above: Order Comment: Joseline clemons Type: BLOOD SPECIMENOrdering Facility: [facility] Address: [address] [place] [address] Result Comment: eAG: (Estimated average glucose) is a calculated value from HgbA1c and is senior patient account representative of the average blood glucose level in the last 2-3 month period. Performed By: #### 5 5454-3 ####[facility] LABCLIA [id number] [place] [address] [place] HbA1c (Bld) [Mass fraction] 7.2 % High 4.3-5.6 [facility] Comment on above: Order Comment: Joseline clemons Type: BLOOD SPECIMENOrdering Facility: [facility] Address: [address] [place] [address] Result Comment: [place] Diabetes Association guidelines indicate that patients with HgbA1c in the range 5.7-6.4% are at increased risk for development of diabetes, and intervention by lifestyle modification may be beneficial. HgbA1c greater or equal to 6.5% is considered diagnostic of diabetes. Performed By: #### 5 5454-3 ####[facility] LABIA [id number] [place] [address] [place] LDH SerPl-cCncon 03-21-2023 LDH [Catalytic activity/Vol] 265 U/L High 135-225 [facility] Comment on above: Order Comment: Joseline clemons Type: BLOOD SPECIMENOrdering Facility: [facility] Address: [address] [place] [address] Performed By: #### 2 4321-2, 3016-3, [id number], 2532-0 ####[facility] LABIA [id number] [place] [address] [place] PROTEIN ELECTROPHORESIS SERU M (P)on 03-21-2023 Albumin [Mass/Vol] 3.32 g/dL Low 3.43-5.41 [facility] Comment on above: Order Comment: Joseline clemons Type: BLOOD SPECIMENOrdering Facility: [facility] Address: [address] Performed By: #### 2 4321-2, 3015-3, [id number], 253-0 ####[facility] LABCLIA [id number] [place] [address] [place] Alpha 1 globulin Elph [Mass/Vol] 0.43 g/dL Normal 0.18-0.43 [facility] Comment on above: Order Comment: Speci men Type: BLOOD SPECIMENOrdering Facility: [facility] Address: [address] Performed By: #### 2 4321-2, 3, [id number], 2531-0 ####[facility] LABCLIA [id number] [place] [address] [place] Alpha 2 globulin Elph [Mass/Vol] 0.88 g/dL Normal 0.42-0.98 [facility] Comment on above: Order Comment: Speci men Type: BLOOD SPECIMENOrdering Facility: [facility] Address: [address] [address] Performed By: #### 2 432-2, 3, [id number], 2531-0 ####[facility] LABCLIA [id number] [place] [address] [place] Beta globulin Elph [Mass/Vol] 0.89 g/dL Normal 0.61-1.17 [facility] Comment on above: Order Comment: Speci men Type: BLOOD SPECIMENOrdering Facility: [facility] Address: [address] Performed By: #### 2 432-2, 3015-3, [id number], 253-0 ####[facility] LABCLIA [id number] [place] [address] [place] Gamma globulin Elph [Mass/Vol] 0.78 g/dL Normal 0.53-1.51 [facility] Comment on above: Order Comment: Speci men Type: BLOOD SPECIMENOrdering Facility: [facility] Address: [address] [address] Performed By: #### 2 4321-2, 3016-3, [id number], 2532-0 ####[facility] LABCLIA [id number] [place] [address] [place] INTERPRETATION COMMENT FOR PROTEIN ELECTROPHORESIS Normal [facility] Comment on above: Order Comment: Speci men Type: BLOOD SPECIMENOrdering Facility: [facility] Address: [address] [address] Performed By: #### 2 4321-2, 3015-3, [id number], 253-0 ####[facility] LABCLIA [id number] [place] [address] [place] M-PROTEIN LOCATION Normal [facility] Comment on above: Order Comment: Speci men Type: BLOOD SPECIMENOrdering Facility: [facility] Address: [address] [place] [address] Result Comment: Not Applicable. Performed By: #### 2 4321-2, 3015-3, [id number], 2532-0 ####[facility] LABCLIA [id number] [place] [address] [place] Protein Fractions [Interp] An atypical region of restricted mobility is identified on protein electrophoresis. Abnormal No definitive M protein is identified on protein electrophor esis. [facility] Comment on above: Order Comment: Speci men Type: BLOOD SPECIMENOrdering Facility: [facility] Address: [address] Performed By: #### 2 4321-2, 6-3, [id number], 2532-0 ####[facility] LABCLIA [id number] [place] [id number] [place] Protein.monoclonal Elph [Mass/Vol] 0.00 g/dL Normal <=0.00 [facility] Comment on above: Order Comment: Speci men Type: BLOOD SPECIMENOrdering Facility: [facility] Address: [address] [address] Performed By: #### 2 4321-2, 3016-3, [id number], 2532-0 ####[facility] LABCLIA [id number] [address] STATES OF [facility] SPE STAFF REVIEW Reviewed by Angeles Russo MD [facility] Comment on above: Order Comment: Speci men Type: BLOOD SPECIMENOrdering Facility: [facility] Address: [address] [address] Performed By: #### 2 4321-2, 3016-3, [id number], 2532-0 ####[facility] LABCLIA [id number] [address] [place] Prot/Creat Uron 03-21-2023 Protein/Creatinine (U) [Mass ratio] 0.24 mg/mg High <0.15 [facility] Comment on above: Order Comment: Speci men Type: URINE SPECIMENOrdering Facility: [facility] Address: [address] [place] [address] Result Comment: Adul t Proteinuria Categories:<0.15 mg/mg is considered normal to mildly increased0.15 - 0.50 mg/mg is considered moderately increased>0.50 mg/mg is considered severely increasedKDIGO. (2013). KDIGO 2012 Clinical Practice Guideline for the Evaluation and Management of Chronic Kidney Disease. Official Journal of the International Society of Nephrology, 3(1), 1-150. Performed By: #### 2 890-2 ####[facility] LABCLIA [id number] [address] [place] Protein/Creatinine (U) [Mass ratio]on 03-21-2023 Creatinine (U) [Mass/Vol] 28.9 mg/dL Normal 20.0-300.0 [facility] Comment on above: Order Comment: Speci men Type: URINE SPECIMENOrdering Facility: [facility] Address: [address] [place], [place] [address] Performed By: #### 2 890-2 ####[facility] LABCLIA [id number] [address] [place] Protein (U) [Mass/Vol] 7 mg/dL Normal 0-20 [facility] Comment on above: Order Comment: Speci men Type: URINE SPECIMENOrdering Facility: [facility] Address: [address] [place], [place] [address] Performed By: #### 2 890-2 ####[facility] LABCLIA [id number] [address] [place] THERAPY NTon 03-21-2023 THERAPY NT Normal [facility] THERAPY NT Normal [facility] TSH SerPl-aCncon 03-21-2023 TSH Qn 3.650 m[IU]/L Normal 0.270-4.200 [facility] Comment on above: Order Comment: Speci men Type: BLOOD SPECIMENOrdering Facility: [facility] Address: [address] [place] [address] Performed By: #### 2 4321-2, 3016-3, [id number], 2532-0 ####[facility] LABCLIA [id number] [place] [address] [place] URINE PROTEIN ELECTROPHORESI S RANDOM (P)on 03-21-2023 Albumin Elph (U) [Mass fraction] 73.16 % Normal [facility] Comment on above: Order Comment: Speci men Type: URINE SPECIMENOrdering Facility: [facility] Address: [address] [place], [place] [address] Performed By: #### U ACR, [id number] ####[facility] LABCLIA [id number] [place] [address] [place] Alpha 1 globulin Elph (U) [Mass fraction] 7.98 % Normal [facility] Comment on above: Order Comment: Speci men Type: URINE SPECIMENOrdering Facility: [facility] Address: [address] [address] Performed By: #### U ACR, [id number] ####[facility] LABCLIA [id number] [place] [address] [place] Alpha 2 globulin Elph (U) [Mass fraction] 6.92 % Normal [facility] Comment on above: Order Comment: Speci men Type: URINE SPECIMENOrdering Facility: [facility] Address: [address] [address] Performed By: #### U ACR, [id number] ####[facility] LABCLIA [id number] [place] [address] [place] Beta globulin Elph (U) [Mass fraction] 9.94 % Normal [facility] Comment on above: Order Comment: Speci men Type: URINE SPECIMENOrdering Facility: [facility] Address: [address] [address] Performed By: #### U ACR, [id number] ####[facility] LABCLIA [id number] [address] [place] Gamma globulin Elph (U) [Mass fraction] 2.00 % Normal [facility] Comment on above: Order Comment: Speci men Type: URINE SPECIMENOrdering Facility: [facility] Address: [address] [place], [place] [address] Performed By: #### U ACR, [id number] ####[facility] LABCLIA [id number] [place] [address] [place] INTERPRETATION COMMENT FOR PROTEIN ELECTROPHORESIS Normal [facility] Comment on above: Order Comment: Speci men Type: URINE SPECIMENOrdering Facility: [facility] Address: [address] [address] Performed By: #### U ACR, [id number] ####[facility] LABCLIA [id number] [address] Protein Fractions Elph Jarrod (U) [Interp] No definitive M protein is identified on protein electrophoresis. Normal No definitive M protein is identified on protein electrophor esis. [facility] Comment on above: Order Comment: Speci men Type: URINE SPECIMENOrdering Facility: [facility] Address: [address] [place] [address] Performed By: #### U ACR, [id number] ####[facility] LABCLIA [id number] [address] STAFF REVIEW (URINE ELECTRO) Reviewed by Angeles Russo MD Normal [facility] Comment on above: Order Comment: Speci men Type: URINE SPECIMENOrdering Facility: [facility] Address: [address] [place] [address] Performed By: #### U ACR, [id number] ####[facility] LABCLIA [id number] [address] [place] US KIDNEY/BLADDERon 03-21-20 US KIDNEY/BLADDER Normal [facility] Urinalysis complete panel (U )on 03-21-2023 Bilirubin Ql (U) Negative Normal Negative [facility] Comment on above: Order Comment: Speci men Type: URINE SPECIMENOrdering Facility: [facility] Address: [address] [place] [address] Performed By: #### 2 4356-8 ####[facility] LABCLIA [id number] [address] STATES OF [facility] Clarity (Unsp spec) Clear Normal Clear [facility] Comment on above: Order Comment: Speci men Type: URINE SPECIMENOrdering Facility: [facility] Address: [address] [place] [address] Performed By: #### 2 4356-8 ####[facility] LABCLIA [id number] [address] Color (U) Light Yellow Normal Yellow [facility] Comment on above: Order Comment: Speci men Type: URINE SPECIMENOrdering Facility: [facility] Address: [address] Performed By: #### 2 4356-8 ####[facility] LABCLIA [id number] [place] [address] [place] Epithelial cells LM.HPF (Urine sed) [#/Area] Few Normal [facility] Comment on above: Order Comment: Speci men Type: URINE SPECIMENOrdering Facility: [facility] Address: [address] Performed By: #### 2 4356-8 ####[facility] LABCLIA [id number] [place] [address] [place] Glucose Test strip (U) [Mass/Vol] Negative Normal Trace, Negative [facility] Comment on above: Order Comment: Speci men Type: URINE SPECIMENOrdering Facility: [facility] Address: [address] Performed By: #### 2 4356-8 ####[facility] LABCLIA [id number] [place] [address] [place] Hemoglobin Ql (U) Negative Normal Negative, Trace [facility] Comment on above: Order Comment: Speci men Type: URINE SPECIMENOrdering Facility: [facility] Address: [address] Performed By: #### 2 4356-8 ####[facility] LABCLIA [id number] [place] [address] [place] Ketones Ql (U) Negative Normal Trace, Negative [facility] Comment on above: Order Comment: Speci men Type: URINE SPECIMENOrdering Facility: [facility] Address: [address] Performed By: #### 2 4356-8 ####[facility] LABCLIA [id number] [place] [address] [place] Leukocyte esterase Test strip Ql (U) Negative Normal Negative, 25 Aron/uL [facility] Comment on above: Order Comment: Speci men Type: URINE SPECIMENOrdering Facility: [facility] Address: [address] [place] [address] Performed By: #### 2 4356-8 ####[facility] LABCLIA [id number] [place] [address] [place] Nitrite Ql (U) Negative Normal Negative [facility] Comment on above: Order Comment: Speci men Type: URINE SPECIMENOrdering Facility: [facility] Address: [address] [place] [address] Performed By: #### 2 4356-8 ####[facility] LABIA [id number] [place] [address] [place] pH (U) 6.5 [pH] Normal 5.0-8.0 [facility] Comment on above: Order Comment: Speci men Type: URINE SPECIMENOrdering Facility: [facility] Address: [address] [place] [address] Performed By: #### 2 4356-8 ####[facility] LABIA [id number] [place] [address] [place] Protein (U) [Mass/Vol] Negative Normal Trace, Negative [facility] Comment on above: Order Comment: Speci men Type: URINE SPECIMENOrdering Facility: [facility] Address: [address] [place] [address] Performed By: #### 2 4356-8 ####[facility] LABIA [id number] [place] [address] [place] RBC LM.HPF (Urine sed) [#/Area] 0-3 /HPF Normal 0-3 /HPF [facility] Comment on above: Order Comment: Speci men Type: URINE SPECIMENOrdering Facility: [facility] Address: [address] [address] Performed By: #### 2 4356-8 ####[facility] LABCLIA [id number] [place] [address] [place] Specific gravity (U) [Rel density] 1.009 Normal 1.005-1.030 [facility] Comment on above: Order Comment: Speci men Type: URINE SPECIMENOrdering Facility: [facility] Address: [address] [place] [address] Performed By: #### 2 4356-8 ####[facility] LABCLIA [id number] [place] [address] [place] Urobilinogen Ql (U) 1+ Abnormal Negative [facility] Comment on above: Order Comment: Speci men Type: URINE SPECIMENOrdering Facility: [facility] Address: [address] [place] [address] Performed By: #### 2 4356-8 ####[facility] LABIA [id number] [place] [address] [place] WBC LM.HPF (Urine sed) [#/Area] 0-5 /HPF Normal 0-5 /HPF [facility] Comment on above: Order Comment: Speci men Type: URINE SPECIMENOrdering Facility: [facility] Address: [address] [place] [address] Performed By: #### 2 4356-8 ####[facility] LABCLIA [id number] [place] [address] [place] Basic Metabolic Profon 03-20 Anion gap [Moles/Vol] 12 mmol/L Normal 9-17 [facility] Comment on above: Performed By: #### B MP #### [facility] [address] [place] [address] Bottom Liner: Sy Rojas MD BUN/CRE Ratio 25 High 9-20 [facility] Comment on above: Performed By: #### B MP #### [facility] [address] [place], [place] [id number] Bottom Liner: Sy Rojas MD Calcium [Mass/Vol] 9.5 mg/dL Normal 8.6-10.4 [facility] Comment on above: Performed By: #### B MP #### [facility] [address] [place] [address] Bottom Liner: Sy Rojas MD Chloride [Moles/Vol] 94 mmol/L Low 98-107 [facility] Comment on above: Performed By: #### B MP #### [facility] [address] [place], [place] [address] Bottom Liner: Sy Rojas MD CO2 [Moles/Vol] 26 mmol/L Normal 20-31 [facility] Comment on above: Performed By: #### B MP #### [facility] [address] [place] [address] Bottom Liner: Sy Rojas MD Creatinine [Mass/Vol] 2.1 mg/dL High 0.7-1.2 [facility] Comment on above: Performed By: #### B MP #### [facility] [address] [place], [place] [address] Bottom Liner: Sy Rojas MD GFR/1.73 sq M.predicted among non-blacks MDRD (S/P/Bld) [Vol rate/Area] 34 mL/min/{1.73_m2} Low >60 [facility] Comment on above: Result Comment: These results [...] secretion. Performed By: #### B MP #### [facility] [address] [place] [address] Bottom Liner: Sy Rojas MD Glucose [Mass/Vol] 50 mg/dL Critically low 70-99 [facility] Comment on above: Performed By: #### B MP #### [facility] [address] [place], [place] [address] Bottom Liner: Sy Rojas MD Potassium [Moles/Vol] 4.2 mmol/L Normal 3.7-5.3 [facility] Comment on above: Performed By: #### B MP #### [facility] [address] [place] [address] Bottom Liner: Sy Rojas MD Sodium [Moles/Vol] 132 mmol/L Low 135-144 [facility] Comment on above: Performed By: #### B MP #### [facility] [address] [place] [address] Bottom Liner: Sy Rojas MD Urea nitrogen [Mass/Vol] 53 mg/dL High 8-23 [facility] Comment on above: Performed By: #### B MP #### [facility] [address] [place], [place] [address] Bottom Liner: Sy Rojas MD CBC W Auto Differential pane l (Bld)on 03-20-2023 Basophils (Bld) [#/Vol] 0.07 10*3/uL Normal <0.11 [facility] Comment on above: Order Comment: Speci men Type: BLOOD SPECIMENOrdering Facility: [facility] Address: [address] [place] [address] Performed By: #### 5 7021-8, 20347-5 ####[facility] LABCLIA [id number] [facility] [id number] [address] [place] Basophils/100 WBC (Bld) 0.8 % Normal [facility] Comment on above: Order Comment: Speci men Type: BLOOD SPECIMENOrdering Facility: [facility] Address: [address] [place] [address] Performed By: #### 5 7021-8, 38507-4 ####[facility] LABCLIA [id number] [place] [address] [place] Differential cell count method Nom (Bld) Auto Normal [facility] Comment on above: Order Comment: Speci men Type: BLOOD SPECIMENOrdering Facility: [facility] Address: [address] [address] Performed By: #### 5 7021-8, 99528-9 ####[facility] LABCLIA [id number] [place] [address] [place] Eosinophils (Bld) [#/Vol] 0.22 10*3/uL Normal <0.46 [facility] Comment on above: Order Comment: Speci men Type: BLOOD SPECIMENOrdering Facility: [facility] Address: [address] Performed By: #### 5 7021-8, 06079-7 ####[facility] LABCLIA [id number] [address] [place] Eosinophils/100 WBC (Bld) 2.4 % Normal [facility] Comment on above: Order Comment: Speci men Type: BLOOD SPECIMENOrdering Facility: [facility] Address: [address] Performed By: #### 5 7021-8, 52860-3 ####[facility] LABCLIA [id number] [place] [address] [place] Erythrocyte distribution width (RBC) [Ratio] 20.4 % High 11.5-15.0 [facility] Comment on above: Order Comment: Speci men Type: BLOOD SPECIMENOrdering Facility: [facility] Address: [address] Performed By: #### 5 7021-8, 78624-8 ####[facility] LABCLIA [id number] [place] [address] [place] Hematocrit (Bld) [Volume fraction] 38.8 % Low 39.0-51.0 [facility] Comment on above: Order Comment: Speci men Type: BLOOD SPECIMENOrdering Facility: [facility] Address: [address] [place], [place] [address] Performed By: #### 5 7021-8, 23435-8 ####[facility] LABCLIA [id number] [place] [address] [place] Hemoglobin (Bld) [Mass/Vol] 11.7 g/dL Low 13.0-17.0 [facility] Comment on above: Order Comment: Speci men Type: BLOOD SPECIMENOrdering Facility: [facility] Address: [address] [place], [place] [address] Performed By: #### 5 7021-8, 38059-0 ####[facility] LABCLIA [id number] [place] [address] [place] Immature granulocytes (Bld) [#/Vol] 0.03 10*3/uL Normal <0.10 [facility] Comment on above: Order Comment: Speci men Type: BLOOD SPECIMENOrdering Facility: [facility] Address: [address] [place], [place] [address] Performed By: #### 5 7021-8, 81851-2 ####[facility] LABCLIA [id number] [place] [address] [place] Immature granulocytes/100 WBC (Bld) 0.3 % Normal [facility] Comment on above: Order Comment: Speci men Type: BLOOD SPECIMENOrdering Facility: [facility] Address: [address] [place], [place] [address] Performed By: #### 5 7021-8, 20512-2 ####[facility] LABCLIA [id number] [place] [address] [place] Lymphocytes (Bld) [#/Vol] 0.69 10*3/uL Low 1.00-4.00 [facility] Comment on above: Order Comment: Speci men Type: BLOOD SPECIMENOrdering Facility: [facility] Address: [address] [place] [address] Performed By: #### 5 7021-8, 14516-2 ####[facility] LABCLIA [id number] [place] [address] [place] Lymphocytes/100 WBC (Bld) 7.5 % Normal [facility] Comment on above: Order Comment: Speci men Type: BLOOD SPECIMENOrdering Facility: [facility] Address: [address] [place] [address] Performed By: #### 5 7021-8, 47508-3 ####[facility] LABCLIA [id number] [address] [place] MCH (RBC) [Entitic mass] 24.8 pg Low 26.0-34.0 [facility] Comment on above: Order Comment: Speci men Type: BLOOD SPECIMENOrdering Facility: [facility] Address: [address] [place] [address] Performed By: #### 5 7021-8, 28094-8 ####[facility] LABCLIA [id number] [place] [address] [place] MCHC (RBC) [Mass/Vol] 30.2 g/dL Low 30.5-36.0 [facility] Comment on above: Order Comment: Speci men Type: BLOOD SPECIMENOrdering Facility: [facility] Address: [address] [place], [place] [address] Performed By: #### 5 7021-8, 98605-1 ####[facility] LABCLIA [id number] [address] [place] [address] [place] MCV (RBC) [Entitic vol] 82.4 fL Normal 80.0-100.0 [facility] Comment on above: Order Comment: Speci men Type: BLOOD SPECIMENOrdering Facility: [facility] Address: [address] [place], [place] [address] Performed By: #### 5 7021-8, 40985-7 ####[facility] LABCLIA [id number] [place] [address] [place] Monocytes (Bld) [#/Vol] 0.67 10*3/uL Normal <0.87 [facility] Comment on above: Order Comment: Speci men Type: BLOOD SPECIMENOrdering Facility: [facility] Address: [address] [place] [address] Performed By: #### 5 7021-8, 53866-1 ####[facility] LABCLIA [id number] [address] [place] Monocytes/100 WBC (Bld) 7.3 % Normal [facility] Comment on above: Order Comment: Speci men Type: BLOOD SPECIMENOrdering Facility: [facility] Address: [address] [place], [place] [address] Performed By: #### 5 7021-8, 19741-5 ####[facility] LABCLIA [id number] [place] [address] [place] Neutrophils (Bld) [#/Vol] 7.47 10*3/uL Normal 1.45-7.50 [facility] Comment on above: Order Comment: Speci men Type: BLOOD SPECIMENOrdering Facility: [facility] Address: [address] [place], [place] [address] Performed By: #### 5 7021-8, 39233-3 ####[facility] LABCLIA [id number] [place] [address] [place] Neutrophils/100 WBC (Bld) 81.7 % Normal [facility] Comment on above: Order Comment: Speci men Type: BLOOD SPECIMENOrdering Facility: [facility] Address: [address] Performed By: #### 5 7021-8, 39355-1 ####[facility] LABCLIA [id number] [place] [address] [place] Nucleated RBC (Bld) [#/Vol] 0.02 10*3/uL High <0.01 [facility] Comment on above: Order Comment: Speci men Type: BLOOD SPECIMENOrdering Facility: [facility] Address: [address] Performed By: #### 5 7021-8, 80348-7 ####[facility] LABIA [id number] [place] [address] [place] Nucleated RBC/100 WBC (Bld) [Ratio] 0.2 /100 WBC Normal [facility] Comment on above: Order Comment: Speci men Type: BLOOD SPECIMENOrdering Facility: [facility] Address: [address] [place], [place] [address] Performed By: #### 5 7021-8, 01712-6 ####[facility] LABIA [id number] [place] [address] [place] Platelet mean volume (Bld) [Entitic vol] 9.5 fL Normal 9.0-12.7 [facility] Comment on above: Order Comment: Speci men Type: BLOOD SPECIMENOrdering Facility: [facility] Address: [address] Performed By: #### 5 7021-8, 90401-7 ####[facility] LABIA [id number] [place] [address] [place] Platelets (Bld) [#/Vol] 254 10*3/uL Normal 150-400 [facility] Comment on above: Order Comment: Speci men Type: BLOOD SPECIMENOrdering Facility: [facility] Address: [address] [place], [place] [address] Performed By: #### 5 7021-8, 19328-1 ####[facility] LABIA [id number] [place] [address] [place] RBC (Bld) [#/Vol] 4.71 10*6/uL Normal 4.20-6.00 [facility] Comment on above: Order Comment: Speci men Type: BLOOD SPECIMENOrdering Facility: [facility] Address: [address] [place] [address] Performed By: #### 5 7021-8, 47763-5 ####[facility] LABIA [id number] [address] [place] WBC (Bld) [#/Vol] 9.15 10*3/uL Normal 3.70-11.00 [facility] Comment on above: Order Comment: Speci men Type: BLOOD SPECIMENOrdering Facility: [facility] Address: [address] [place] [address] Performed By: #### 5 7021-8, 64706-5 ####[facility] [id number] [place] [address] [place] Comprehensive metabolic 2000 panelon 03-20-2023 Albumin [Mass/Vol] 3.9 g/dL Normal 3.9-4.9 [facility] Comment on above: Order Comment: Speci men Type: BLOOD SPECIMENOrdering Facility: [facility] Address: [address] [place] [address] Performed By: #### 3 3762-6, [id number], 21045-6, 90133-1 ####[facility] LABIA [id number] [address] [place] ALP [Catalytic activity/Vol] 169 U/L High 38-113 [facility] Comment on above: Order Comment: Speci men Type: BLOOD SPECIMENOrdering Facility: [facility] Address: [address] [place] [address] Performed By: #### 3 3762-6, [id number], 36011-5, ####[facility] LABCLIA [id number] [place] [address] [place] ALT [Catalytic activity/Vol] 19 U/L Normal 10-54 [facility] Comment on above: Order Comment: Speci men Type: BLOOD SPECIMENOrdering Facility: [facility] Address: [address] [place] [address] Performed By: #### 3 3762-6, [id number], 73392-8, ####[facility] LABCLIA [id number] [place] [address] [place] Anion gap [Moles/Vol] 11 mmol/L Normal 9-18 [facility] Comment on above: Order Comment: Speci men Type: BLOOD SPECIMENOrdering Facility: [facility] Address: [address] [place] [address] Performed By: #### 3 3762-6, [id number], 80425-8, ####[facility] LABCLIA [id number] [place] [address] [place] AST [Catalytic activity/Vol] 21 U/L Normal 14-40 [facility] Comment on above: Order Comment: Speci men Type: BLOOD SPECIMENOrdering Facility: [facility] Address: [address] [place] [address] Performed By: #### 3 3762-6, [id number], 22010-7, 40430-1 ####[facility] LABCLIA [id number] [place] [address] [place] Bilirubin [Mass/Vol] 2.2 mg/dL High 0.2-1.3 [facility] Comment on above: Order Comment: Speci men Type: BLOOD SPECIMENOrdering Facility: [facility] Address: [address] [place] [address] Performed By: #### 3 3762-6, [id number], 15386-9, 09894-9 ####[facility] LABCLIA [id number] [place] [address] [place] Calcium [Mass/Vol] 9.6 mg/dL Normal 8.5-10.2 [facility] Comment on above: Order Comment: Speci men Type: BLOOD SPECIMENOrdering Facility: [facility] Address: [address] Performed By: #### 3 3762-6, [id number], 52586-0, ####[facility] LABCLIA [id number] [place] [address] [place] Chloride [Moles/Vol] 96 mmol/L Low 97-105 [facility] Comment on above: Order Comment: Speci men Type: BLOOD SPECIMENOrdering Facility: [facility] Address: [address] [place], [place] [address] Performed By: #### 3 3762-6, [id number], 29019-1, ####[facility] LABCLIA [id number] [place] [address] [place] CO2 [Moles/Vol] 26 mmol/L Normal 22-30 [facility] Comment on above: Order Comment: Speci men Type: BLOOD SPECIMENOrdering Facility: [facility] Address: [address] Performed By: #### 3 3762-6, [id number], 00129-4, 93252-8 ####[facility] LABCLIA [id number] [place] [address] [place] Creatinine [Mass/Vol] 2.14 mg/dL High 0.73-1.22 [facility] Comment on above: Order Comment: Speci men Type: BLOOD SPECIMENOrdering Facility: [facility] Address: [address] [place] [address] Performed By: #### 3 3762-6, [id number], 18399-1, 58817-8 ####[facility] LABCLIA [id number] [place] [address] [place] ESTIMATED GLOMERULAR FILTRATION RATE 34 mL/min/1.73m??? Low >=60 [facility] Comment on above: Order Comment: Joseline clemons Type: BLOOD SPECIMENOrdering Facility: [facility] Address: [address] [place] [address] Result Comment: Syl mated Glomerular Filtration Rate [...] actual GFR. Performed By: #### 3 3762-6, [id number], 93754-1, ####[facility] LABCLIA [id number] [place] [address] [place] Glucose [Mass/Vol] 90 mg/dL Normal 74-99 [facility] Comment on above: Order Comment: Joseline clemons Type: BLOOD SPECIMENOrdering Facility: [facility] Address: [address] [place] [address] Result Comment: The [place] [employer] (ADA) provides guidance for cutoff [...] Standards of Medical Care in Diabetes 2016, [place] [employer]. Diabetes Care. 2016.39(Suppl 1). Performed By: #### 3 3762-6, [id number], 65126-9, 93437-8 ####[facility] LABCLIA [id number] [place] [address] [place] Potassium [Moles/Vol] 4.9 mmol/L Normal 3.7-5.1 [facility] Comment on above: Order Comment: Speci men Type: BLOOD SPECIMENOrdering Facility: [facility] Address: [address] [place], [place] [address] Performed By: #### 3 3762-6, [id number], 28946-1, 82979-4 ####[facility] LABIA [id number] [place] [address] [place] Protein [Mass/Vol] 6.6 g/dL Normal 6.3-8.0 [facility] Comment on above: Order Comment: Speci men Type: BLOOD SPECIMENOrdering Facility: [facility] Address: [address] [place], [place] [address] Performed By: #### 3 3762-6, [id number], 02679-8, ####[facility] LABIA [id number] [place] [address] [place] Sodium [Moles/Vol] 133 mmol/L Low 136-144 [facility] Comment on above: Order Comment: Speci men Type: BLOOD SPECIMENOrdering Facility: [facility] Address: [address] [place] [address] Performed By: #### 3 3762-6, [id number], 22793-8, 55879-4 ####[facility] LABIA [id number] [place] [address] [place] Urea nitrogen [Mass/Vol] 53 mg/dL High 9-24 [facility] Comment on above: Order Comment: Speci men Type: BLOOD SPECIMENOrdering Facility: [facility] Address: [address] [place] [id number] Performed By: #### 3 3762-6, [id number], 13792-2, 34688-4 ####[facility] LABIA [id number] [place] [id number] [facility] ED NOTEon 03-20-2023 ED NOTE Normal [facility] ED NOTE HNO ID: [id number] Author: Miko Ivy Medic Service: Emergency Medicine Author Type: Hospitalist Physician and Oil Field Equipment Mechanic Type: ED Notes Filed: 03/20/2023 12:55 PM Note Text: Labs were drawn and sent; 1 purple, 1 green Normal [facility] ED PROV NOTEon 03-20-2023 ED PROV NOTE Normal [facility] HIGH SENSITIVITY TROPONIN T (INITIAL)on 03-20-2023 HIGH SENSITIVITY REINIER 58 ng/L High <12 [facility] Comment on above: Order Comment: Joseline clemons Type: BLOOD SPECIMENOrdering Facility: [facility] Address: [address] [place] [address] Result Comment: When assessing risk for acute [...] day MACE. Performed By: #### 3 3762-6, [id number], 40865-9, 80162-0 ####[facility] LABIA [id number] [address] HIGH SENSITIVITY TROPONIN T (SECOND)on 03-20-2023 HIGH SENSITIVITY REINIER 54 ng/L High <12 [facility] Comment on above: Order Comment: Joseline clemons Type: BLOOD SPECIMENOrdering Facility: [facility] Address: [address] [place] [address] Result Comment: When assessing risk for acute [...] 30 day MACE. Performed By: #### L [id number] ####[facility] LABCLIA [id number] [place] [address] [place] HIGH SENSITIVITY TROPONIN T (THIRD) 3 HRS AFTER INITIALon 03-20-2023 HIGH SENSITIVITY REINIER 53 ng/L High <12 [facility] Comment on above: Order Comment: Speci men Type: BLOOD SPECIMENOrdering Facility: [facility] Address: [address] [place] [address] Result Comment: When assessing risk for acute [...] 30 day MACE. Performed By: #### L [id number], 51040-1, 4542-7 ####[facility] LABCLIA [id number] [place] [address] [place] HISTORY PHYSICALon HISTORY PHYSICAL Normal [facility] Haptoglob SerPl-mCncon 03-20 Haptoglobin [Mass/Vol] 244 mg/dL High 31-238 [facility] Comment on above: Order Comment: Speci men Type: BLOOD SPECIMENOrdering Facility: [facility] Address: [address] [place] [address] Performed By: #### L [id number], 12713-5, 4542-7 ####[facility] LABCLIA [id number] [place] [address] [place] Magnesium SerPl-mCncon 03-20 Magnesium [Mass/Vol] 2.0 mg/dL Normal 1.7-2.3 [facility] Comment on above: Order Comment: Speci men Type: BLOOD SPECIMENOrdering Facility: [facility] Address: [address] Performed By: #### 3 3762-6, [id number], 44297-3, ####[facility] LABCLIA [id number] [address] [place] NT-proBNP [facility] 03-20 Natriuretic peptide.B prohormone N-Terminal [Mass/Vol] 8423 pg/mL High <125 [facility] Comment on above: Order Comment: Speci men Type: BLOOD SPECIMENOrdering Facility: [facility] Address: [address] [place] [address] Performed By: #### 3 3762-6, [id number], , ####[facility] LABCLIA [id number] [place] [address] [place] NURSING PROGon 03-20-2023 NURSING PROG Normal [facility] bilirubin panel [Ma ss/Vol]on 03-20-2023 Bilirubin [Mass/Vol] 2.2 mg/dL High 0.2-1.3 [facility] Comment on above: Order Comment: Speci men Type: BLOOD SPECIMENOrdering Facility: [facility] Address: [address] Performed By: #### L [id number], 31395-5, 4542-7 ####[facility] LABCLIA [id number] [address] [place] Bilirubin.conjugated [Mass/Vol] 0.5 mg/dL High <0.2 [facility] Comment on above: Order Comment: Speci men Type: BLOOD SPECIMENOrdering Facility: [facility] Address: [address] Performed By: #### L [id number], 01810-0, 4542-7 ####[facility] LABCLIA [id number] [address] [place] Bilirubin.indirect [Mass/Vol] 1.7 mg/dL High <1.4 [facility] Comment on above: Order Comment: Joseline clemons Type: BLOOD SPECIMENOrdering Facility: [facility] Address: [address] [place] [address] Performed By: #### L [id number], 13137-2, 4542-7 ####[facility] LABCLIA [id number] [address] PT panel Coag (PPP)on 2022 INR Coag (PPP) [Relative time] 2.0 {INR} High 0.9-1.3 [facility] Comment on above: Order Comment: Joseline clemons Type: BLOOD SPECIMENOrdering Facility: [facility] Address: [address] [place] [address] Result Comment: Baylee min K Antagonist (VKA) Therapeutic Range: INR 2 to 3 (Target INR of 2.5)Note: For patients treated with VKA drugs, such as warfarin, the [place] [employer] 2012 Guideline recommends [...] 70: 252-289 Performed By: #### 3 4528-0 ####[facility] LABCLIA [id number] [address] [place] PT Coag (PPP) [Time] 19.8 s High 9.7-13.0 [facility] Comment on above: Order Comment: Speci men Type: BLOOD SPECIMENOrdering Facility: [facility] Address: [address] [place] [address] Performed By: #### 3 4528-0 ####[facility] LABCLIA [id number] [place] [address] [place] Retics #on 03-20-2023 Reticulocytes (Bld) [#/Vol] 0.17835 10*3/uL Normal 0.018-0.100 [facility] Comment on above: Order Comment: Speci men Type: BLOOD SPECIMENOrdering Facility: [facility] Address: [address] [place] [address] Performed By: #### 5 7021-8, 24850-8 ####[facility] LABIA [id number] [address] [place] Reticulocytes (Bld) [#/Vol]o n 03-20-2023 Reticulocytes/100 RBC (Bld) 1.9 % Normal 0.4-2.0 [facility] Comment on above: Order Comment: Speci men Type: BLOOD SPECIMENOrdering Facility: [facility] Address: [address] [place] [address] Performed By: #### 5 7021-8, 22419-0 ####[facility] [id number] [place] [address] [place] US ABD RIGHT UPPER QUADRANTo n 03-20-2023 US ABD RIGHT UPPER QUADRANT Normal [facility] US ABD SPLEEN -NBon 03-20-20 US ABD SPLEEN -NB Normal [facility] XR CHEST 2V FRONTAL/LATon XR CHEST 2V FRONTAL/LAT Normal [facility] Basic Metabolic Panelon 03-07 Anion gap [Moles/Vol] 11.0 mmol/L Normal 6.0-15.0 [facility] Comment on above: Performed By: #### B MP #### [facility] [address] Calcium [Mass/Vol] 9.5 mg/dL Normal 8.6-10.3 [facility] Comment on above: Performed By: #### B MP #### [facility] [address] Chloride [Moles/Vol] 102 mmol/L Normal 98-107 [facility] Comment on above: Performed By: #### B MP #### [facility] [address] CO2 [Moles/Vol] 30.2 mmol/L Normal 21.0-31.0 [facility] Comment on above: Performed By: #### B MP #### [address] Creatinine [Mass/Vol] 2.37 mg/dL High 0.70-1.30 [facility] Comment on above: Performed By: #### B MP #### [address] Creatinine Clr Calc Pharmacy 39.88 Normal [facility] Comment on above: Result Comment: PERF ORMED BY: [place] [address] PATHOLOGIST SECURITY MESSENGER DHIRAJ CARLOS M.D. Performed By: #### B MP #### [address] GFR/1.73 sq M.predicted MDRD (S/P/Bld) [Vol rate/Area] 29.656 mL/min/{1.73_m2} Normal [facility] Comment on above: Performed By: #### B MP #### [address] Glucose [Mass/Vol] 44 mg/dL Off scale low 70-100 [facility] Comment on above: Result Comment: Crit ical Result Called to and read back by: HERNAN MEYERS at: 03/18/2023 07:15:01 by:[id number] Random Glucose Reference Range is dependent on time and content of last meal. Glucose of more than 200 mg/dL in a nonstressed, ambulatory subject supports the diagnosis of Diabetes Mellitus. ADA recommended reference range Performed By: #### B MP #### [facility] [address] Potassium [Moles/Vol] 4.2 mmol/L Normal 3.5-5.1 [facility] Comment on above: Performed By: #### B MP #### [facility] [address] [place] [address] [place] Sodium [Moles/Vol] 139 mmol/L Normal 136-145 [facility] Comment on above: Performed By: #### B MP #### [facility] [address] Urea nitrogen [Mass/Vol] 54 mg/dL High 7-25 [facility] Comment on above: Performed By: #### B MP #### [facility] [address] Glucose Poct Glucometerson 0 03-18-2023 Glucose [Mass/Vol] 220 mg/dL Normal [facility] Comment on above: Result Comment: [facility] Glucose Reference Range is dependent on time and content of last meal. Glucose of more than 200 mg/dL in a nonstressed, ambulatory subject supports the diagnosis of Diabetes Mellitus. PERFORMED BY: [place] [address] PATHOLOGIST SECURITY MESSENGER DHIRAJ CARLOS M.D. Performed By: #### G LULS #### Point of Care testing , Glucose [Mass/Vol] 146 mg/dL Normal [facility] Comment on above: Result Comment: [facility] Glucose Reference Range is dependent on time and content of last meal. Glucose of more than 200 mg/dL in a nonstressed, ambulatory subject supports the diagnosis of Diabetes Mellitus. PERFORMED BY: [place] [address] PATHOLOGIST SECURITY MESSENGER DHIRAJ CARLOS M.D. Performed By: #### G LULS #### Point of Care testing , Glucose [Mass/Vol] 125 mg/dL Normal [facility] Comment on above: Result Comment: [facility] Glucose Reference Range is dependent on time and content of last meal. Glucose of more than 200 mg/dL in a nonstressed, ambulatory subject supports the diagnosis of Diabetes Mellitus. PERFORMED BY: [address] [place] [address] PATHOLOGIST SECURITY MESSENGER DHIRAJ CARLOS M.D. Performed By: #### G LULS #### Point of Care testing , Commemt1 Normal [facility] Comment on above: Result Comment: Glu2 : WILL NOTIFY DR/RN PERFORMED BY: [address] [place] [address] PATHOLOGIST SECURITY MESSENGER DHIRAJ CARLOS M.D. Performed By: #### G LULS #### Point of Care testing , Glucose [Mass/Vol] 51 mg/dL Off scale low [facility] Comment on above: Result Comment: [facility] Glucose Reference Range is dependent on time and content of last meal. Glucose of more than 200 mg/dL in a nonstressed, ambulatory subject supports the diagnosis of Diabetes Mellitus. Performed By: #### G LULS #### Point of Care testing , Prothrombin Time INRon 03-18 INR Coag (PPP) [Relative time] 2.3 {INR} Normal [facility] Comment on above: Result Comment: INR Therapeutic [...] heart valves: 3 - 4.5 PERFORMED BY: [address] [place] [id number] PATHOLOGIST SECURITY MESSENGER DHIRAJ CARLOS M.D. Performed By: #### G LULS #### Point of Care testing , PT Coag (PPP) [Time] 26.6 s High 9.0-12.9 [facility] Comment on above: Performed By: #### G LULS #### Point of Care testing , Basic Metabolic Panelon 03-07 Anion gap [Moles/Vol] 12.3 mmol/L Normal 6.0-15.0 [facility] Comment on above: Performed By: #### G LULS #### Point of Care testing , Calcium [Mass/Vol] 9.1 mg/dL Normal 8.6-10.3 [facility] Comment on above: Performed By: #### G LULS #### Point of Care testing , Chloride [Moles/Vol] 101 mmol/L Normal 98-107 [facility] Comment on above: Performed By: #### G LULS #### Point of Care testing , CO2 [Moles/Vol] 27.4 mmol/L Normal 21.0-31.0 [facility] Comment on above: Performed By: #### G LULS #### Point of Care testing , Creatinine [Mass/Vol] 2.49 mg/dL High 0.70-1.30 [facility] Comment on above: Performed By: #### G LULS #### Point of Care testing , Creatinine Clr Calc Pharmacy 38.36 [facility] Comment on above: Result Comment: PERF ORMED BY: [facility] [address] [place] [address] PATHOLOGIST SECURITY MESSENGER DHIRAJ CARLOS M.D. Performed By: #### G LULS #### Point of Care testing , GFR/1.73 sq M.predicted MDRD (S/P/Bld) [Vol rate/Area] 27.949 mL/min/{1.73_m2} [facility] Comment on above: Performed By: #### G LULS #### Point of Care testing , Glucose [Mass/Vol] 74 mg/dL Normal 70-100 [facility] Comment on above: Result Comment: [facility] Glucose Reference Range is dependent on time and content of last meal. Glucose of more than 200 mg/dL in a nonstressed, ambulatory subject supports the diagnosis of Diabetes Mellitus. ADA recommended reference range Performed By: #### G LULS #### Point of Care testing , Potassium [Moles/Vol] 4.7 mmol/L Normal 3.5-5.1 [facility] Comment on above: Performed By: #### G LULS #### Point of Care testing , Sodium [Moles/Vol] 136 mmol/L Normal 136-145 [facility] Comment on above: Performed By: #### G LULS #### Point of Care testing , Urea nitrogen [Mass/Vol] 55 mg/dL High 7-25 [facility] Comment on above: Performed By: #### G LULS #### Point of Care testing , Glucose Poct Glucometerson 0 03-17-2023 Glucose [Mass/Vol] 208 mg/dL Normal [facility] Comment on above: Result Comment: [facility] Glucose Reference Range is dependent on time and content of last meal. Glucose of more than 200 mg/dL in a nonstressed, ambulatory subject supports the diagnosis of Diabetes Mellitus. PERFORMED BY: [place] [address] PATHOLOGIST SECURITY MESSENGER DHIRAJ CARLOS M.D. Performed By: #### G LULS #### Point of Care testing , Commemt1 Glu2: Cleaned Meter [facility] Comment on above: Result Comment: PERF ORMED BY: [place] [address] PATHOLOGIST SECURITY MESSENGER DHIRAJ CARLOS M.D. Performed By: #### G LULS #### Point of Care testing , Glucose [Mass/Vol] 138 mg/dL Normal [facility] Comment on above: Result Comment: [facility] Glucose Reference Range is dependent on time and content of last meal. Glucose of more than 200 mg/dL in a nonstressed, ambulatory subject supports the diagnosis of Diabetes Mellitus. Performed By: #### G LULS #### Point of Care testing , Commemt1 Glu2: Cleaned Meter Normal [facility] Comment on above: Result Comment: PERF ORMED BY: [facility] [address] [place] [address] PATHOLOGIST SECURITY MESSENGER DHIRAJ CARLOS M.D. Performed By: #### G BROCK #### Point of Care testing , Glucose [Mass/Vol] 266 mg/dL Normal [facility] Comment on above: Result Comment: [facility] om Glucose Reference Range is dependent on time and content of last meal. Glucose of more than 200 mg/dL in a nonstressed, ambulatory subject supports the diagnosis of Diabetes Mellitus. Performed By: #### G LULS #### Point of Care testing , Glucose [Mass/Vol] 84 mg/dL Normal [facility] Comment on above: Result Comment: [facility] om Glucose Reference Range is dependent on time and content of last meal. Glucose of more than 200 mg/dL in a nonstressed, ambulatory subject supports the diagnosis of Diabetes Mellitus. PERFORMED BY: [place] [address] PATHOLOGIST SECURITY MESSENGER DHIRAJ CARLOS M.D. Performed By: #### B MP #### [place] [id number] [facility] Prothrombin Time INRon 03-17 INR Coag (PPP) [Relative time] 3.4 {INR} Normal [facility] Comment on above: Result Comment: INR Therapeutic [...] heart valves: 3 - 4.5 PERFORMED BY: [place] [address] PATHOLOGIST SECURITY MESSENGER DHIRAJ CARLOS M.D. Performed By: #### B MP #### [address] PT Coag (PPP) [Time] 38.9 s High 9.0-12.9 [facility] Comment on above: Performed By: #### B MP #### [place] [id number] [facility] Basic Metabolic Panelon 03-07 Anion gap [Moles/Vol] 14.4 mmol/L Normal 6.0-15.0 [facility] Comment on above: Performed By: #### G LULS #### Point of Care testing , Calcium [Mass/Vol] 9.2 mg/dL Normal 8.6-10.3 [facility] Comment on above: Performed By: #### G LULS #### Point of Care testing , Chloride [Moles/Vol] 101 mmol/L Normal 98-107 [facility] Comment on above: Performed By: #### G LULS #### Point of Care testing , CO2 [Moles/Vol] 24.9 mmol/L Normal 21.0-31.0 [facility] Comment on above: Performed By: #### G LULS #### Point of Care testing , Creatinine [Mass/Vol] 2.50 mg/dL High 0.70-1.30 [facility] Comment on above: Performed By: #### G LULS #### Point of Care testing , Creatinine Clr Calc Pharmacy 38.43 [facility] Comment on above: Result Comment: PERF ORMED BY: [facility] [address] [address] PATHOLOGIST SECURITY MESSENGER DHIRAJ CARLOS M.D. Performed By: #### G LULS #### Point of Care testing , GFR/1.73 sq M.predicted MDRD (S/P/Bld) [Vol rate/Area] 27.815 mL/min/{1.73_m2} [facility] Comment on above: Performed By: #### G LULS #### Point of Care testing , Glucose [Mass/Vol] 67 mg/dL Low 70-100 [facility] Comment on above: Result Comment: [facility] Glucose Reference Range is dependent on time and content of last meal. Glucose of more than 200 mg/dL in a nonstressed, ambulatory subject supports the diagnosis of Diabetes Mellitus. ADA recommended reference range Performed By: #### G LULS #### Point of Care testing , Potassium [Moles/Vol] 5.3 mmol/L High 3.5-5.1 [facility] Comment on above: Performed By: #### G BROCK #### Point of Care testing , Sodium [Moles/Vol] 135 mmol/L Low 136-145 [facility] Comment on above: Performed By: #### G JAMEELLS #### Point of Care testing , Urea nitrogen [Mass/Vol] 55 mg/dL High 7-25 [facility] Comment on above: Performed By: #### G JAMEELLS #### Point of Care testing , Complete Blood Count Auto Di ffon 03-16-2023 Basophils (Bld) [#/Vol] 0.1 10*3/uL Normal 0.0-0.2 [facility] Comment on above: Result Comment: PERF ORMED BY: [facility] [address] [place] [address] PATHOLOGIST SECURITY MESSENGER DHIRAJ CARLOS M.D. Performed By: #### G JAMEELLS #### Point of Care testing , Basophils/100 WBC (Bld) 0.7 % Normal . [facility] Comment on above: Performed By: #### G JAMEELLS #### Point of Care testing , Eosinophils (Bld) [#/Vol] 0.1 10*3/uL Normal 0.0-0.45 [facility] Comment on above: Performed By: #### G JAMEELLS #### Point of Care testing , Eosinophils/100 WBC (Bld) 1.3 % Normal . [facility] Comment on above: Performed By: #### G JAMEELLS #### Point of Care testing , Erythrocyte distribution width (RBC) [Ratio] 21.2 % High 12.0-14.8 [facility] Comment on above: Performed By: #### G BROCK #### Point of Care testing , Hematocrit (Bld) [Volume fraction] 35.8 % Low 38.8-50.0 [facility] Comment on above: Performed By: #### G JAMEELLS #### Point of Care testing , Hemoglobin (Bld) [Mass/Vol] 11.3 g/dL Low 13.0-17.0 [facility] Comment on above: Performed By: #### G JAMEELLS #### Point of Care testing , Lymphocytes (Bld) [#/Vol] 0.6 10*3/uL Low 1.00-4.8 [facility] Comment on above: Performed By: #### G JAMEELLS #### Point of Care testing , Lymphocytes/100 WBC (Bld) 7.4 % Normal . [facility] Comment on above: Performed By: #### G JAMEELLS #### Point of Care testing , MCH (RBC) [Entitic mass] 25.1 pg Low 27.5-35.2 [facility] Comment on above: Performed By: #### G JAMEELLS #### Point of Care testing , MCV (RBC) [Entitic vol] 79.7 fL Low 83.5-101 [facility] Comment on above: Performed By: #### G JAMEELLS #### Point of Care testing , Mean Corpuscular HGB Conc 31.5 g/dL Low 32.5-35.6 [facility] Comment on above: Performed By: #### Armin JORGENSENLS #### Point of Care testing , Monocytes (Bld) [#/Vol] 0.7 10*3/uL Normal 0.0-0.8 [facility] Comment on above: Performed By: #### Armin JORGENSENLS #### Point of Care testing , Monocytes/100 WBC (Bld) 7.8 % Normal . [facility] Comment on above: Performed By: #### Armin JORGENSENLS #### Point of Care testing , Neutrophils (Bld) [#/Vol] 7.2 10*3/uL Normal 1.8-7.7 [facility] Comment on above: Performed By: #### G JAMEELLS #### Point of Care testing , Neutrophils/100 WBC (Bld) 82.8 % Normal . [facility] Comment on above: Performed By: #### G JAMEELLS #### Point of Care testing , NRBC% 0.3 /100{WBC} Normal 0-0.5 [facility] Comment on above: Performed By: #### Armin JORGENSENLS #### Point of Care testing , Platelet mean volume (Bld) [Entitic vol] 7.6 fL Normal 6.6-10.1 [facility] Comment on above: Performed By: #### G LULS #### Point of Care testing , Platelets (Bld) [#/Vol] 272 10*3/uL Normal 150-450 [facility] Comment on above: Performed By: #### G LULS #### Point of Care testing , RBC (Bld) [#/Vol] 4.49 10*6/uL Normal 3.90-5.60 [facility] Comment on above: Performed By: #### G LULS #### Point of Care testing , WBC (Bld) [#/Vol] 8.7 10*3/uL Normal 4.1-10.5 [facility] Comment on above: Performed By: #### G LULS #### Point of Care testing , Dipstick and Microscopicon 0 03-16-2023 Bacteria,Urine None Seen Normal None Seen [facility] Comment on above: Order Comment: Name Collection Type:: Clean-Voided Midstream Performed By: #### G LULS #### Point of Care testing , Hyaline Casts,Urine 0-8 Normal 0-8 [facility] Comment on above: Order Comment: Name Collection Type:: Clean-Voided Midstream Result Comment: PERF ORMED BY: [facility] [place] [address] PATHOLOGIST SECURITY MESSENGER DHIRAJ CARLOS M.D. Performed By: #### G LULS #### Point of Care testing , RBC LM.HPF (Urine sed) [#/Area] 0 /[HPF] Normal 0-4 [facility] Comment on above: Order Comment: Name Collection Type:: Clean-Voided Midstream Performed By: #### G LULS #### Point of Care testing , Squamous Epithelial Cell,Urine None Seen Normal 0-2 [facility] Comment on above: Order Comment: Name Collection Type:: Clean-Voided Midstream Performed By: #### G LULS #### Point of Care testing , WBC LM.HPF (Urine sed) [#/Area] 0 /[HPF] Normal 0-4 [facility] Comment on above: Order Comment: Name Collection Type:: Clean-Voided Midstream Performed By: #### G LULS #### Point of Care testing , [facility] echo transthoracicon [facility] echo transthoracic [facility] Main [place] [address] [place] [address] Echocardiogram Signed Patient: Gregg Foster MR#: [id number] : 1955 Acct:[id number] Age/Sex: 67 / M ADM Date: 03/15/23 Loc: Room: [address] [place] [address] Type: ADM IN Attending Dr: Meena Falcon MD Ordering Provider: Meena Falcon MD Date of Service: 03/15/2304/29/1446 [facility] echo transthoracic: CHF Copies to: MD Jef Ayers MD Weight: 259 lb Performed By: [...] KAILYN Performed At: 03/16/23 1151 Signed By: Jef Aviles MD 03/16/23 1852 [facility] Glucose Poct Glucometerson 0 03-16-2023 Glucose [Mass/Vol] 147 mg/dL Normal [facility] Comment on above: Result Comment: [facility] Glucose Reference Range is dependent on time and content of last meal. Glucose of more than 200 mg/dL in a nonstressed, ambulatory subject supports the diagnosis of Diabetes Mellitus. PERFORMED BY: [place] [id number] PATHOLOGIST SECURITY MESSENGER DHIRAJ CARLOS M.D. Performed By: #### B MP #### [address] Commemt1 Glu2: Cleaned Meter [facility] Comment on above: Result Comment: PERF ORMED BY: [id number] PATHOLOGIST SECURITY MESSENGER DHIRAJ CARLOS M.D. Performed By: #### G LULS #### Point of Care testing , Glucose [Mass/Vol] 115 mg/dL Normal [facility] Comment on above: Result Comment: [facility] Glucose Reference Range is dependent on time and content of last meal. Glucose of more than 200 mg/dL in a nonstressed, ambulatory subject supports the diagnosis of Diabetes Mellitus. Performed By: #### G LULS #### Point of Care testing , Glucose [Mass/Vol] 123 mg/dL Normal [facility] Comment on above: Result Comment: [facility] Glucose Reference Range is dependent on time and content of last meal. Glucose of more than 200 mg/dL in a nonstressed, ambulatory subject supports the diagnosis of Diabetes Mellitus. PERFORMED BY: [address] [place] [address] PATHOLOGIST SECURITY MESSENGER DHIRAJ CARLOS M.D. Performed By: #### G LULS #### Point of Care testing , Glucose [Mass/Vol] 81 mg/dL Normal [facility] Comment on above: Result Comment: [facility] Glucose Reference Range is dependent on time and content of last meal. Glucose of more than 200 mg/dL in a nonstressed, ambulatory subject supports the diagnosis of Diabetes Mellitus. PERFORMED BY: [address] [place] [place] [address] PATHOLOGIST SECURITY MESSENGER DHIRAJ CARLOS M.D. Performed By: #### G LULS #### Point of Care testing , Glucose [Mass/Vol] 76 mg/dL Normal [facility] Comment on above: Result Comment: [facility] Glucose Reference Range is dependent on time and content of last meal. Glucose of more than 200 mg/dL in a nonstressed, ambulatory subject supports the diagnosis of Diabetes Mellitus. PERFORMED BY: [address] [place] [place] [address] PATHOLOGIST SECURITY MESSENGER DHIRAJ CARLOS M.D. Performed By: #### G LULS #### Point of Care testing , Commemt1 [facility] Comment on above: Result Comment: Glu2 : WILL NOTIFY DR/RN PERFORMED BY: [address] [place] [id number] PATHOLOGIST SECURITY MESSENGER DHIRAJ CARLOS M.D. Performed By: #### G LULS #### Point of Care testing , Glucose [Mass/Vol] 51 mg/dL Off scale low [facility] Comment on above: Result Comment: [facility] Glucose Reference Range is dependent on time and content of last meal. Glucose of more than 200 mg/dL in a nonstressed, ambulatory subject supports the diagnosis of Diabetes Mellitus. Performed By: #### G LULS #### Point of Care testing , Magnesiumon 03-16-2023 Magnesium [Mass/Vol] 1.9 mg/dL Normal 1.9-2.7 [facility] Comment on above: Result Comment: PERF ORMED BY: [place] [address] PATHOLOGIST SECURITY MESSENGER DHIRAJ CARLOS M.D. Performed By: #### M Armin, K #### [facility] [address] [place] [address] MicroAlb Creat Ratio,Uon Albumin DL <= 20 mg/L (U) [Mass/Vol] 11.7 mg/dL High 0.0-1.8 [facility] Comment on above: Order Comment: Comme nt from ua Performed By: #### G LULS #### Point of Care testing , Creatinine, Urine (Random) 70.0 mg/dL High 14.0-26.0 [facility] Comment on above: Order Comment: Comme nt from ua Performed By: #### G LULS #### Point of Care testing , Microalbumin/Creatini ne Ratio 167.0 mg/g High 0.0-30.0 [facility] Comment on above: Order Comment: Comme nt from ua Result Comment: 30-3 00 mg/g indicates an increased risk for diabetic nephropathy. Greater than 300 mg/g is consistent with clinical nephropathy. (Am. J. Kidney Disease 1994, 25:107) PERFORMED BY: [place] [address] PATHOLOGIST SECURITY MESSENGER DHIRAJ CARLOS M.D. Performed By: #### G LULS #### Point of Care testing , Potassiumon 03-16-2023 Potassium [Moles/Vol] 5.2 mmol/L High 3.5-5.1 [facility] Comment on above: Performed By: #### M Armin, K #### [facility] [address] [place] [address] Prothrombin Time INRon 03-16 INR Coag (PPP) [Relative time] 4.5 {INR} Normal [facility] Comment on above: Result Comment: INR Therapeutic [...] heart valves: 3 - 4.5 PERFORMED BY: [place] [address] PATHOLOGIST SECURITY MESSENGER DHIRAJ CARLOS M.D. Performed By: #### G LULS #### Point of Care testing , PT Coag (PPP) [Time] 51.7 s High 9.0-12.9 [facility] Comment on above: Performed By: #### G LULS #### Point of Care testing , US renal BIon 03-16-2023 US renal BI [facility] Main [place] [address] [place] [address] Ultrasound Report Signed Patient: Gregg Foster MR#: [id number] : 1955 Acct:[id number] Age/Sex: 67 / M ADM Date: 03/15/23 Loc: Room: [address] [place] [address] Type: ADM IN Attending Dr: Meena Falcon [...] Fabio Sellers M.D.03/16/2023 5:02 PM Dictation Location: [place] [address] Tech: Isis Mcgowan Transcribed By: MARGOT 03/16/231701 Dictated By: Fabio Sellers DO 03/16/231700 Signed By: 03/16/231701 Normal [facility] Urinalysison 03-16-2023 Appearance (U) Clear Normal Clear [facility] Comment on above: Order Comment: Name Collection Type:: Clean-Voided Midstream Performed By: #### G LULS #### Point of Care testing , Bilirubin,Urine Negative Normal Negative [facility] Comment on above: Order Comment: Name Collection Type:: Clean-Voided Midstream Performed By: #### G LULS #### Point of Care testing , Color (U) Yellow Normal Yellow [facility] Comment on above: Order Comment: Name Collection Type:: Clean-Voided Midstream Performed By: #### G LULS #### Point of Care testing , Glucose Ql (U) Normal Normal Normal [facility] Comment on above: Order Comment: Name Collection Type:: Clean-Voided Midstream Performed By: #### G LULS #### Point of Care testing , Ketones Ql (U) Negative Normal Negative [facility] Comment on above: Order Comment: Name Collection Type:: Clean-Voided Midstream Performed By: #### G LULS #### Point of Care testing , Leukocyte esterase Test strip Ql (U) Negative Normal Negative [facility] Comment on above: Order Comment: Name Collection Type:: Clean-Voided Midstream Performed By: #### G LULS #### Point of Care testing , Nitrite,Urine Negative Normal Negative [facility] Comment on above: Order Comment: Name Collection Type:: Clean-Voided Midstream Performed By: #### G LULS #### Point of Care testing , Occult Blood,Urine Negative Normal Negative [facility] Comment on above: Order Comment: Name Collection Type:: Clean-Voided Midstream Result Comment: PERF ORMED BY: [facility] [address] [place] [address] PATHOLOGIST SECURITY MESSENGER DHIRAJ CARLOS M.D. Performed By: #### G LULS #### Point of Care testing , pH (U) 5.5 [pH] Normal 5.0-9.0 [facility] Comment on above: Order Comment: Name Collection Type:: Clean-Voided Midstream Performed By: #### G LULS #### Point of Care testing , Protein,Urine Trace High Negative [facility] Comment on above: Order Comment: Name Collection Type:: Clean-Voided Midstream Performed By: #### G LULS #### Point of Care testing , Specificy [place],Urine 1.012 Normal 1.001-1.030 [facility] Comment on above: Order Comment: Name Collection Type:: Clean-Voided Midstream Performed By: #### G LULS #### Point of Care testing , Urobilinogen,Urine Normal Normal Normal [facility] Comment on above: Order Comment: Name Collection Type:: Clean-Voided Midstream Performed By: #### G LULS #### Point of Care testing , B-Type Natriuretic Peptideon 03-15-2023 Natriuretic peptide B (Bld) [Mass/Vol] 1381.0 pg/mL High 5-100 [facility] Comment on above: Result Comment: PERF ORMED BY: [place] [address] PATHOLOGIST SECURITY MESSENGER DHIRAJ CARLOS M.D. Performed By: #### R [place] PANEL UPP., BIOFIRECOVNOTDE #### [address] Performed By: #### B MP #### [address] Basic Metabolic Panelon Anion gap [Moles/Vol] 15.1 mmol/L High 6.0-15.0 [facility] Comment on above: Performed By: #### R [place] PANEL UPP., BIOFIRECOVNOTDE #### [address] Performed By: #### B MP #### [address] Calcium [Mass/Vol] 9.2 mg/dL Normal 8.6-10.3 [facility] Comment on above: Performed By: #### R [place] PANEL UPP., BIOFIRECOVNOTDE #### [facility] [address] [place] [address] Performed By: #### B MP #### [address] Chloride [Moles/Vol] 101 mmol/L Normal 98-107 [facility] Comment on above: Performed By: #### R [place] PANEL UPP., BIOFIRECOVNOTDE #### [address] Performed By: #### B MP #### [address] CO2 [Moles/Vol] 23.5 mmol/L Normal 21.0-31.0 [facility] Comment on above: Performed By: #### R [place] PANEL UPP., BIOFIRECOVNOTDE #### [address] Performed By: #### B MP #### [address] Creatinine [Mass/Vol] 2.44 mg/dL High 0.70-1.30 [facility] Comment on above: Performed By: #### R [place] PANEL UPP., BIOFIRECOVNOTDE #### [facility] [address] [place] [address] Performed By: #### B MP #### [address] Creatinine Clr Calc Pharmacy 40.21 [facility] Comment on above: Result Comment: PERF ORMED BY: [place] [address] PATHOLOGIST SECURITY MESSENGER DHIRAJ CARLOS M.D. Performed By: #### [place] PANEL UPP., BIOFIRECOVNOTDE #### [address] Performed By: #### B MP #### [address] GFR/1.73 sq M.predicted MDRD (S/P/Bld) [Vol rate/Area] 28.638 mL/min/{1.73_m2} Normal [facility] Comment on above: Performed By: #### R [place] PANEL UPP., BIOFIRECOVNOTDE #### [address] Performed By: #### B MP #### [address] Glucose [Mass/Vol] 64 mg/dL Low 70-100 [facility] Comment on above: Result Comment: [facility] Glucose Reference Range is dependent on time and content of last meal. Glucose of more than 200 mg/dL in a nonstressed, ambulatory subject supports the diagnosis of Diabetes Mellitus. ADA recommended reference range Performed By: #### R [place] PANEL UPP., BIOFIRECOVNOTDE #### [address] Performed By: #### B MP #### [address] Potassium [Moles/Vol] 5.6 mmol/L High 3.5-5.1 [facility] Comment on above: Performed By: #### R [place] PANEL UPP., BIOFIRECOVNOTDE #### [facility] [address] [place] [address] Performed By: #### B MP #### [address] Sodium [Moles/Vol] 134 mmol/L Low 136-145 [facility] Comment on above: Performed By: #### R [place] PANEL UPP., BIOFIRECOVNOTDE #### [address] Performed By: #### B MP #### [address] Urea nitrogen [Mass/Vol] 54 mg/dL High 7-25 [facility] Comment on above: Performed By: #### R [place] PANEL UPP., BIOFIRECOVNOTDE #### [address] Performed By: #### B MP #### [address] BioFire Not Detectedon 03-15 BioFire Not Detected Not detected Normal Not Detecte [facility] Comment on above: Result Comment: This is a duplicate RP2.1 COVID (PCR) result to be used for statistical tracking purpose only. PERFORMED BY: [place] [address] PATHOLOGIST SECURITY MESSENGER DHIRAJ CARLOS M.D. Performed By: #### R [place] PANEL UPP., BIOFIRECOVNOTDE #### [address] Performed By: #### B IOFIRECOVNOTDE, RESP PANEL UPP. #### [address] Complete Blood Count Auto Di ffon 03-15-2023 Basophils (Bld) [#/Vol] 0.1 10*3/uL Normal 0.0-0.2 [facility] Comment on above: Result Comment: PERF ORMED BY: [place] [address] PATHOLOGIST SECURITY MESSENGER DHIRAJ CARLOS M.D. Performed By: #### C BC, HEPATIC, PTT, BMP, PT, CK, HS TROP, BNP #### [address] Performed By: #### B MP #### [address] Basophils/100 WBC (Bld) 1.0 % Normal . [facility] Comment on above: Performed By: #### C BC, HEPATIC, PTT, BMP, PT, CK, HS TROP, BNP #### [address] Performed By: #### B MP #### [address] Eosinophils (Bld) [#/Vol] 0.1 10*3/uL Normal 0.0-0.45 [facility] Comment on above: Performed By: #### C BC, HEPATIC, PTT, BMP, PT, CK, HS TROP, BNP #### [address] Performed By: #### B MP #### [address] Eosinophils/100 WBC (Bld) 1.3 % Normal . [facility] Comment on above: Performed By: #### C BC, HEPATIC, PTT, BMP, PT, CK, HS TROP, BNP #### [address] Performed By: #### B MP #### [address] Erythrocyte distribution width (RBC) [Ratio] 20.9 % High 12.0-14.8 [facility] Comment on above: Performed By: #### C BC, HEPATIC, PTT, BMP, PT, CK, HS TROP, BNP #### [address] Performed By: #### B MP #### [address] Hematocrit (Bld) [Volume fraction] 37.4 % Low 38.8-50.0 [facility] Comment on above: Performed By: #### C BC, HEPATIC, PTT, BMP, PT, CK, HS TROP, BNP #### [address] Performed By: #### B MP #### [address] Hemoglobin (Bld) [Mass/Vol] 11.6 g/dL Low 13.0-17.0 [facility] Comment on above: Performed By: #### C BC, HEPATIC, PTT, BMP, PT, CK, HS TROP, BNP #### [address] Performed By: #### B MP #### [address] Lymphocytes (Bld) [#/Vol] 0.9 10*3/uL Low 1.00-4.8 [facility] Comment on above: Performed By: #### C BC, HEPATIC, PTT, BMP, PT, CK, HS TROP, BNP #### [address] Performed By: #### B MP #### [address] Lymphocytes/100 WBC (Bld) 10.1 % Normal . [facility] Comment on above: Performed By: #### C BC, HEPATIC, PTT, BMP, PT, CK, HS TROP, BNP #### [address] Performed By: #### B MP #### [address] MCH (RBC) [Entitic mass] 24.9 pg Low 27.5-35.2 [facility] Comment on above: Performed By: #### C BC, HEPATIC, PTT, BMP, PT, CK, HS TROP, BNP #### [address] Performed By: #### B MP #### [address] MCV (RBC) [Entitic vol] 80.4 fL Low 83.5-101 [facility] Comment on above: Performed By: #### C BC, HEPATIC, PTT, BMP, PT, CK, HS TROP, BNP #### [address] Performed By: #### B MP #### [address] Mean Corpuscular HGB Conc 31.0 g/dL Low 32.5-35.6 [facility] Comment on above: Performed By: #### C BC, HEPATIC, PTT, BMP, PT, CK, HS TROP, BNP #### [address] Performed By: #### B MP #### [address] Monocytes (Bld) [#/Vol] 0.7 10*3/uL Normal 0.0-0.8 [facility] Comment on above: Performed By: #### C BC, HEPATIC, PTT, BMP, PT, CK, HS TROP, BNP #### [address] Performed By: #### B MP #### [address] Monocytes/100 WBC (Bld) 15.80 % Normal 0.00-20.00 [facility] Comment on above: Performed By: #### C BC, HEPATIC, PTT, BMP, PT, CK, HS TROP, BNP #### [address] Performed By: #### B MP #### [address] Monocytes/100 WBC (Bld) 8.4 % Normal . [facility] Comment on above: Performed By: #### C BC, HEPATIC, PTT, BMP, PT, CK, HS TROP, BNP #### [address] Performed By: #### B MP #### [address] Neutrophils (Bld) [#/Vol] 6.9 10*3/uL Normal 1.8-7.7 [facility] Comment on above: Performed By: #### C BC, HEPATIC, PTT, BMP, PT, CK, HS TROP, BNP #### [address] Performed By: #### B MP #### [address] Neutrophils/100 WBC (Bld) 79.2 % Normal . [facility] Comment on above: Performed By: #### C BC, HEPATIC, PTT, BMP, PT, CK, HS TROP, BNP #### [address] Performed By: #### B MP #### [address] NRBC% 0.4 /100{WBC} Normal 0-0.5 [facility] Comment on above: Performed By: #### C BC, HEPATIC, PTT, BMP, PT, CK, HS TROP, BNP #### [address] Performed By: #### B MP #### [address] Platelet mean volume (Bld) [Entitic vol] 7.5 fL Normal 6.6-10.1 [facility] Comment on above: Performed By: #### C BC, HEPATIC, PTT, BMP, PT, CK, HS TROP, BNP #### [address] Performed By: #### B MP #### [address] Platelets (Bld) [#/Vol] 290 10*3/uL Normal 150-450 [facility] Comment on above: Performed By: #### C BC, HEPATIC, PTT, BMP, PT, CK, HS TROP, BNP #### [address] Performed By: #### B MP #### [address] RBC (Bld) [#/Vol] 4.66 10*6/uL Normal 3.90-5.60 [facility] Comment on above: Performed By: #### C BC, HEPATIC, PTT, BMP, PT, CK, HS TROP, BNP #### [address] Performed By: #### B MP #### [address] WBC (Bld) [#/Vol] 8.7 10*3/uL Normal 4.1-10.5 [facility] Comment on above: Performed By: #### C BC, HEPATIC, PTT, BMP, PT, CK, HS TROP, BNP #### [address] Performed By: #### B MP #### [address] Creatine Kinaseon 03-15-2023 CK [Catalytic activity/Vol] 252 U/L High 30-223 [facility] Comment on above: Performed By: #### R [place] PANEL UPP., BIOFIRECOVNOTDE #### [address] Performed By: #### B MP #### [address] ECG 12 lead ECGon 03-15-2023 ECG 12 lead ECG [facility] Main [place] [address] [place] [address] Electrocardiograph Report Signed Patient: Gregg Foster MR#: [id number] : 1955 Acct:[id number] Age/Sex: 67 / M ADM Date: 03/15/23 Loc: Room: [address] [place] [address] Type: ADM IN Attending Dr: Meena Falcon [...] ECGs available Confirmed by Corey Londono DO ([id number]) on 03/15/2023 3:10:33 PM Referred By: Electronically Signed By:Corey Londono DO Transcribed By: JOSE Signed By Corey Londono DO 3 1510 [facility] ECG 12 lead ECG [facility] Main [address] [address] Electrocardiograph Report Signed Patient: Gregg Foster MR#: [id number] : 1955 Acct:[id number] Age/Sex: 67 / M ADM Date: 03/15/23 Loc: Room: [address] [place] [address] Type: ADM IN Attending Dr: Meena Falcon [...] ECGs available Confirmed by Corey Londono DO ([id number]) on 03/15/2023 3:10:33 PM Referred By: Electronically Signed By:Corey Londono DO Transcribed By: JOSE Signed By Corey Londono DO 3 1510 [facility] Glucose Poct Glucometerson 0 03-15-2023 Glucose [Mass/Vol] 131 mg/dL Normal [facility] Comment on above: Result Comment: [facility] Glucose Reference Range is dependent on time and content of last meal. Glucose of more than 200 mg/dL in a nonstressed, ambulatory subject supports the diagnosis of Diabetes Mellitus. PERFORMED BY: [place] [address] PATHOLOGIST SECURITY MESSENGER DHIRAJ CARLOS M.D. Performed By: #### G LULS #### Point of Care testing , Hepatic Panelon 03-15-2023 Albumin [Mass/Vol] 3.8 g/dL Normal 3.5-5.7 [facility] Comment on above: Performed By: #### R DOROTA PANEL UPP., BIOFIRECOVNOTDE #### [address] Performed By: #### B MP #### [address] Albumin/Globulin [Mass ratio] 1.4 {ratio} Normal [facility] Comment on above: Performed By: #### R [place] PANEL UPP., BIOFIRECOVNOTDE #### [address] Performed By: #### B MP #### [address] ALP [Catalytic activity/Vol] 153 U/L High 34-104 [facility] Comment on above: Performed By: #### R [place] PANEL UPP., BIOFIRECOVNOTDE #### [address] Performed By: #### B MP #### [address] ALT [Catalytic activity/Vol] 18 U/L Normal 7-52 [facility] Comment on above: Performed By: #### R [place] PANEL UPP., BIOFIRECOVNOTDE #### [address] Performed By: #### B MP #### [address] AST [Catalytic activity/Vol] 22 U/L Normal 13-39 [facility] Comment on above: Performed By: #### R D[place] PANEL UPP., BIOFIRECOVNOTDE #### [address] Performed By: #### B MP #### [address] Bilirubin [Mass/Vol] 1.5 mg/dL High 0.3-1.0 [facility] Comment on above: Result Comment: Samp les from patients who have taken Naproxen have shown spurious elevation in Total Bilirubin levels. A metabolite of Naproxen, O-desmethylnaproxen, has been shown to interfere with the Jendrassik-Grof method for measuring Total Bilirubin. Performed By: #### R D[place] PANEL UPP., BIOFIRECOVNOTDE #### [address] Performed By: #### B MP #### [address] Bilirubin,Indirect 1.0 mg/dL Normal [facility] Comment on above: Performed By: #### R D[place] PANEL UPP., BIOFIRECOVNOTDE #### [address] Performed By: #### B MP #### [address] Bilirubin.indirect [Mass/Vol] 0.50 mg/dL High 0.03-0.18 [facility] Comment on above: Performed By: #### R D[place] PANEL UPP., BIOFIRECOVNOTDE #### [address] Performed By: #### B MP #### [address] Globulin (S) [Mass/Vol] 2.7 g/dL Normal [facility] Comment on above: Performed By: #### R D[place] PANEL UPP., BIOFIRECOVNOTDE #### [address] Performed By: #### B MP #### [address] Protein [Mass/Vol] 6.5 g/dL Normal 6.4-8.9 [facility] Comment on above: Performed By: #### R D[place] PANEL UPP., BIOFIRECOVNOTDE #### [address] Performed By: #### B MP #### [address] Partial Thromboplastin Timeo n 03-15-2023 aPTT Coag (Bld) [Time] 42.7 s High 25.1-36.5 [facility] Comment on above: Result Comment: PERF ORMED BY: [place] [address] PATHOLOGIST SECURITY MESSENGER DHIRAJ CARLOS M.D. Performed By: #### C BC, HEPATIC, PTT, BMP, PT, CK, HS TROP, BNP #### [address] Performed By: #### B MP #### [address] Prothrombin Time INRon 03-15 INR Coag (PPP) [Relative time] 4.3 {INR} Normal [facility] Comment on above: Result Comment: INR Therapeutic [...] BMP, PT, CK, HS TROP, BNP #### [address] Performed By: #### G BROCK #### Point of Care testing , PT Coag (PPP) [Time] 49.7 s High 9.0-12.9 [facility] Comment on above: Performed By: #### C BC, HEPATIC, PTT, BMP, PT, CK, HS TROP, BNP #### [address] Performed By: #### G BROCK #### Point of Care testing , Respiratory [...] A H3 Blank Space ------ PERFORMED BY: [place] [address] PATHOLOGIST SECURITY MESSENGER DHIRAJ CARLOS M.D. [facility] Comment on above: Performed By: #### R DOROTA PANEL UPP., BIOFIRECOVNOTDE #### [facility] [address] [place] [address] Performed By: #### B IOFIRECOVNOTDE, RESP PANEL UPP. #### [address] Troponin I High Sensitivityo n 03-15-2023 Troponin I High Sensitivity 35.7 pg/mL High 0.0-20.0 [facility] Comment on above: Result Comment: PERF ORMED BY: [place] [address] PATHOLOGIST SECURITY MESSENGER DHIRAJ CARLOS M.D. Performed By: #### R DOROTA PANEL UPP., BIOFIRECOVNOTDE #### [address] [place] [address] [place] Performed By: #### B #### [facility] [address] [place] [address] XR chest 1V portableon 03-15 XR chest 1V portable [facility] [place] [address] XRay Report Signed Patient: Gregg Foster MR#: [id number] : 1955 Acct:[id number] Age/Sex: 67 / M ADM Date: 03/15/23 [...] Srinivasan Jr., D.O.03/15/2023 9:54 AM Dictation Location: [place] [address] Transcribed By: [facility] 03/15/23953 Dictated By: Antwon Srinivasan Jr, DO 03/15/23952 Signed By: 03/15/23 0954 [facility] XR chest 1V portable [facility] [place] [address] XRay Report Signed Patient: Gregg Foster MR#: [id number] : 1955 Acct:[id number] Age/Sex: 67 / M ADM Date: 03/15/23 Loc: Room: [address] [place] [address] Type: ADM IN Attending Dr: Meena Falcon [...] Srinivasan Jr., D.OLizzette03/15/2023 9:54 AM Dictation Location: [place] [address] Transcribed By: [facility] 03/15/23953 Dictated By: Antwon Srinivasan Jr, DO 03/15/23952 Signed By: 03/15/23953 [facility] Basic Metabolic Profon 03-14 Anion gap [Moles/Vol] 13 mmol/L Normal - [facility] Comment on above: Performed By: #### G LYHGB, LIPR #### [address] [id number] Bottom Liner: Oh Jean MD #### EVER, CP #### [facility] [address] [place], [place] [phone] Bottom Liner: Sy Rojas MD BUN/CRE Ratio 21 High 9-20 [facility] Comment on above: Performed By: #### G LYHGB, LIPR #### [address] [id number] Bottom Liner: Oh Jean MD #### EVER, CP #### [facility] [address] [place], [place] [phone] Bottom Liner: Sy Rojas MD Calcium [Mass/Vol] 9.3 mg/dL Normal 8.6-10.4 [facility] Comment on above: Performed By: #### G LYHGB, LIPR #### [address] [address] Bottom Liner: Oh Jean MD #### EVER, CP #### [facility] [address] [place] [address] Bottom Liner: Sy Rojas MD Chloride [Moles/Vol] 97 mmol/L Low 98-107 [facility] Comment on above: Performed By: #### G LYHGB, LIPR #### [facility] [address] [place], [place] [phone] Bottom Liner: Oh Jean MD #### ZFAST, CP #### [facility] [address] [place], [place] [phone] Bottom Liner: Sy Rojas MD CO2 [Moles/Vol] 21 mmol/L Normal 20-31 [facility] Comment on above: Performed By: #### G LYHGB, LIPR #### [address] [phone] Bottom Liner: Oh Jean MD #### BRYCEAST, CP #### [facility] [address] [place], [place] [phone] Bottom Liner: Sy Rojas MD Creatinine [Mass/Vol] 2.3 mg/dL High 0.7-1.2 [facility] Comment on above: Performed By: #### G LYHGB, LIPR #### [facility] [address] [place] [address] [id number] Bottom Liner: Oh Jean MD #### BRYCEAST, CP #### [facility] [address] [place] [address] Bottom Liner: Sy Rojas MD GFR/1.73 sq M.predicted among non-blacks MDRD (S/P/Bld) [Vol rate/Area] 31 mL/min/{1.73_m2} Low >60 [facility] Comment on above: Result Comment: These results [...] Performed By: #### G LYHGB, LIPR #### [address] [address] Bottom Liner: Oh Jean MD #### BRYCEAST, CP #### [facility] [address] [place], [place] [phone] Bottom Liner: Sy Rojas MD Glucose [Mass/Vol] 91 mg/dL Normal 70-99 [facility] Comment on above: Performed By: #### G LYHGB, LIPR #### [address] [address] Bottom Liner: Oh Jean MD #### EVER, CP #### [facility] [address] [place], [place] [phone] Bottom Liner: Sy Rojas MD Potassium [Moles/Vol] 5.4 mmol/L High 3.7-5.3 [facility] Comment on above: Performed By: #### Armin LYLORI, LIPR #### [address] [phone] Bottom Liner: Oh Jean MD #### EVER, CP #### [facility] [address] [place], [place] [phone] Bottom Liner: Sy Rojas MD Sodium [Moles/Vol] 131 mmol/L Low 135-144 [facility] Comment on above: Performed By: #### G LYHGB, LIPR #### [address] [address] Bottom Liner: Oh Jean MD #### ZFAST, CP #### [facility] [address] [place], [place] [phone] Bottom Liner: Sy Rojas MD Urea nitrogen [Mass/Vol] 49 mg/dL High 8-23 [facility] Comment on above: Performed By: #### G LYHGB, LIPR #### [facility] [address] [place] [address] Bottom Liner: Oh Jean MD #### ZFAST, CP #### [facility] [address] [place] [address] Bottom Liner: Sy Rojas MD Basic Metabolic Profon 03-07 Anion gap [Moles/Vol] 15 mmol/L Normal 9-17 [facility] Comment on above: Performed By: #### G LYHGB, LIPR #### [place] [address] [place] [address] Bottom Liner: Oh Jean MD #### BRYCEAST, CP #### [facility] [address] [place], [place] [phone] Bottom Liner: Sy Rojas MD BUN/CRE Ratio 27 High 9-20 [facility] Comment on above: Performed By: #### G LYHGB, LIPR #### [facility] [address] [place] [address] Bottom Liner: Oh Jean MD #### BRYCEAST, CP #### [facility] [address] [place], [place] [phone] Bottom Liner: Sy Rojas MD Calcium [Mass/Vol] 9.6 mg/dL Normal 8.6-10.4 [facility] Comment on above: Performed By: #### G LYHGB, LIPR #### [facility] [address] [place] [address] Bottom Liner: Oh Jean MD #### ZFAST, CP #### [facility] [address] [place] [address] Bottom Liner: Sy Rojas MD Chloride [Moles/Vol] 99 mmol/L Normal 98-107 [facility] Comment on above: Performed By: #### G LYHGB, LIPR #### [facility] [address] [place], [place] [phone] Bottom Liner: Oh Jean MD #### ZFAST, CP #### [facility] [address] [place], [place] [phone] Bottom Liner: Sy Rojas MD CO2 [Moles/Vol] 22 mmol/L Normal 20-31 [facility] Comment on above: Performed By: #### G LYHGB, LIPR #### [facility] [address] [place], [place] [phone] Bottom Liner: Oh Jean MD #### ZFAST, CP #### [facility] [address] [place], [place] [phone] Bottom Liner: Sy Rojas MD Creatinine [Mass/Vol] 2.1 mg/dL High 0.7-1.2 [facility] Comment on above: Performed By: #### G LYHGB, LIPR #### [facility] [address] [place], [place] [phone] Bottom Liner: Oh Jean MD #### ZFAST, CP #### [facility] [address] [place], [place] [phone] Bottom Liner: Sy Rojas MD GFR/1.73 sq M.predicted among non-blacks MDRD (S/P/Bld) [Vol rate/Area] 34 mL/min/{1.73_m2} Low >60 [facility] Comment on above: Result Comment: These results [...] Performed By: #### G LYHGB, LIPR #### [facility] [address] [place] [address] Bottom Liner: Oh Jean MD #### EVER, CP #### [facility] [address] [place] [address] Bottom Liner: Sy Rojas MD Glucose [Mass/Vol] 104 mg/dL High 70-99 [facility] Comment on above: Performed By: #### G LYHGB, LIPR #### [facility] [address] [place] [address] Bottom Liner: Oh Jean MD #### EVER, CP #### [facility] [address] [place] [address] Bottom Liner: Sy Rojas MD Potassium [Moles/Vol] 5.2 mmol/L Normal 3.7-5.3 [facility] Comment on above: Performed By: #### Armin LYHGB, LIPR #### [facility] [address] [place] [address] Bottom Liner: Oh Jean MD #### EVER, CP #### [facility] [address] [place] [address] Bottom Liner: Sy Rojas MD Sodium [Moles/Vol] 136 mmol/L Normal 135-144 [facility] Comment on above: Performed By: #### G LYHGB, LIPR #### [facility] [address] [place] [address] Bottom Liner: Oh Jean MD #### BRYCEAST, CP #### [facility] [address] [place] [address] Bottom Liner: Sy Rojas MD Urea nitrogen [Mass/Vol] 57 mg/dL High 8-23 [facility] Comment on above: Performed By: #### G LYHGB, LIPR #### [place] [address] [place] [address] Bottom Liner: Oh Jean MD #### ZFASTTREVON #### [facility] [address] [place] [address] Bottom Liner: Sy Rojas MD XR CHEST (2 VW)on [...] Vida Tinajero MD 02/21/23 Final result Normal [facility] Cardiomegaly with vascular congestion and possible small left pleural effusion. [facility] RIS CONSOLIDATED EXAM: XR CHEST (2 VW ) HISTORY: Reason for exam:->cad COMPARISON: 02/22/2022. TECHNIQUE: Two views. FINDINGS: Pacemaker is again seen. Cardiomegaly persists. Mild vascular congestion is noted. There may be a small left pleural effusion as evidenced by blunting of the left costophrenic angle. [facility] RIS CONSOLIDATED Vida Tinajero MD - 02/21/2023 EXAM: XR CHEST (2 VW) HISTORY: Reason for exam:->cad COMPARISON: 02/22/2022. TECHNIQUE: Two views. FINDINGS: Pacemaker is again seen. Cardiomegaly persists. Mild vascular congestion is noted. There may be a small left pleural effusion as evidenced by blunting of the left costophrenic angle. IMPRESSION: Cardiomegaly with vascular congestion and possible small left pleural effusion. [facility] XR CHEST (2 VW)Ordered By: Vida Tinajero on 02-21-2023 [facility] CBC with Diffon 02-20-2023 Morphology Jarrod (Bld) [Interp] MODERATE Normal [facility] Comment on above: Result Comment: ANIS OCYTOSIS SLIGHT POIKILOCYTOSIS FEW OVALOCYTES FEW ACANTHOCYTES Performed By: #### Z FAST, CDP, CP, MG, TSHX #### [facility] [address] [place] [address] Bottom Liner: Sy Rojas MD #### LIPR, VD25 #### [address] [address] Bottom Liner: Oh Jean MD Abs. Basophil 0.10 k/uL Normal 0.0-0.2 [facility] Comment on above: Performed By: #### Z FAST, CDP, CP, MG, TSHX #### [facility] [address] [place] [address] Bottom Liner: Sy Rojas MD #### GAMALIEL, VD25 #### [address] [address] Bottom Liner: Oh Jean MD Abs.Neutrophil (Seg) 6.40 k/uL Normal 2.1-6.5 [facility] Comment on above: Performed By: #### Z FAST, CDP, CP, MG, TSHX #### [facility] [address] [place] [address] Bottom Liner: Sy Rojas MD #### GAMALIEL, VD25 #### [address] [address] Bottom Liner: Oh Jean MD Basophils/100 WBC (Bld) 1 % Normal 0-2 [facility] Comment on above: Performed By: #### Z FAST, CDP, CP, MG, TSHX #### [facility] [address] [place], [place] [phone] Bottom Liner: Sy Rojas MD #### LIPR, VD25 #### [address] [address] Bottom Liner: Oh Jean MD Eosinophils (Bld) [#/Vol] 0.20 10*3/uL Normal 0.0-0.4 [facility] Comment on above: Performed By: #### Anna FAST, CDP, CP, MG, TSHX #### [facility] [address] [place], [place] [phone] Bottom Liner: Sy Rojas MD #### GAMALIEL VD25 #### [address] [id number] Bottom Liner: Oh Jean MD Eosinophils/100 WBC (Bld) 2 % Normal 0-5 [facility] Comment on above: Performed By: #### Anna FAST, CDP, CP, MG, TSHX #### [facility] [address] [place] [phone] Bottom Liner: Sy Rojas MD #### GREGORIO25 #### [place] [phone] Bottom Liner: Oh Jean MD Erythrocyte distribution width (RBC) [Ratio] 20.6 % High 12.1-15.2 [facility] Comment on above: Performed By: #### Anna FAST, CDP, CP, MG, TSHX #### [facility] [address] [place] [phone] Bottom Liner: Sy Rojas MD #### GREGORIO25 #### [address] [id number] Bottom Liner: Oh Jean MD Hematocrit (Bld) [Volume fraction] 39.7 % Low 41-53 [facility] Comment on above: Performed By: #### Anna FAST, CDP, CP, MG, TSHX #### [facility] [address] [place] [phone] Bottom Liner: Sy Rojas MD #### GAMALIEL VD25 #### [address] [id number] Bottom Liner: Oh Jean MD Hemoglobin (Bld) [Mass/Vol] 12.4 g/dL Low 13.5-17.5 [facility] Comment on above: Performed By: #### Z FAST, CDP, CP, MG, TSHX #### [facility] [address] [place], [place] [phone] Bottom Liner: Sy Rojas MD #### GAMALIEL, VD25 #### [place] [address] [place], [place] [phone] Bottom Liner: Oh Jean MD Lymphocytes (Bld) [#/Vol] 1.10 10*3/uL Normal 1.0-4.8 [facility] Comment on above: Performed By: #### Z FAST, CDP, CP, MG, TSHX #### [facility] [address] [place] [address] Bottom Liner: Sy Rojas MD #### GAMALIEL, VD25 #### [address] [id number] Bottom Liner: Oh Jean MD Lymphocytes/100 WBC (Bld) 13 % Normal 13-44 [facility] Comment on above: Performed By: #### Z FAST, CDP, CP, MG, TSHX #### [facility] [address] [place] [phone] Bottom Liner: Sy Rojas MD #### LIPR, VD25 #### [address] [place] [address] Bottom Liner: Oh Jean MD MCH (RBC) [Entitic mass] 25.8 pg Low 26-34 [facility] Comment on above: Performed By: #### Z FAST, CDP, CP, MG, TSHX #### [facility] [address] [place] [phone] Bottom Liner: Sy Rojas MD #### LIPR, VD25 #### [place] [phone] Bottom Liner: Oh Jean MD MCHC (RBC) [Mass/Vol] 31.4 g/dL Normal 31-37 [facility] Comment on above: Performed By: #### Z FAST, CDP, CP, MG, TSHX #### [facility] [address] [place] [address] Bottom Liner: Sy Rojas MD #### LIPR, VD25 #### [place] [phone] Bottom Liner: Oh Jean MD MCV (RBC) [Entitic vol] 82.1 fL Normal 80-100 [facility] Comment on above: Performed By: #### Z FAST, CDP, CP, MG, TSHX #### [facility] [address] [place] [address] Bottom Liner: Sy Rojas MD #### LIPR, VD25 #### [place] [address] Bottom Liner: Oh Jean MD Monocytes (Bld) [#/Vol] 0.90 10*3/uL Normal 0.0-1.0 [facility] Comment on above: Performed By: #### Z FAST, CDP, CP, MG, TSHX #### [facility] [address] [place] [address] Bottom Liner: Sy Rojas MD #### LIPR, VD25 #### [place] [address] Bottom Liner: Oh Jean MD Monocytes/100 WBC (Bld) 10 % High 5-9 [facility] Comment on above: Performed By: #### Z FAST, CDP, CP, MG, TSHX #### [facility] [address] [place], [place] [phone] Bottom Liner: Sy Rojas MD #### LIPR, VD25 #### [address] [phone] Bottom Liner: Oh Jean MD Neutrophil (Seg) 74 % Normal 39-75 [facility] Comment on above: Performed By: #### Z FAST, CDP, CP, MG, TSHX #### [facility] [address] [place] [phone] Bottom Liner: Sy Rojas MD #### LIPR, VD25 #### [place] [phone] Bottom Liner: Oh Jean MD Platelets (Bld) [#/Vol] 282 10*3/uL Normal 140-450 [facility] Comment on above: Performed By: #### Z FAST, CDP, CP, MG, TSHX #### [facility] [address] [place] [phone] Bottom Liner: Sy Rojas MD #### GAMALIEL, VD25 #### [place] [address] Bottom Liner: Oh Jean MD RBC (Bld) [#/Vol] 4.84 10*6/uL Normal 4.5-5.9 [facility] Comment on above: Performed By: #### Z FAST, CDP, CP, MG, TSHX #### [facility] [address] [place] [phone] Bottom Liner: Sy Rojas MD #### LIPR, VD25 #### [address] [address] Bottom Liner: Oh Jean MD WBC (Bld) [#/Vol] 8.7 10*3/uL Normal 3.5-11.0 [facility] Comment on above: Performed By: #### Z FAST, CDP, CP, MG, TSHX #### [facility] [address] [place] [address] Bottom Liner: Sy Rojas MD #### LIPR, VD25 #### [address] [place] [address] Bottom Liner: Oh Jean MD Comp Metabolic Profon 2022 Albumin [Mass/Vol] 3.6 g/dL Normal 3.5-5.2 [facility] Comment on above: Performed By: #### G LYHGB, LIPR #### [address] [address] Bottom Liner: Oh Jean MD #### BRYCEAST, CP #### [facility] [address] [place] [address] Bottom Liner: Sy Rojas MD Alkaline Phos 168 U/L High 40-129 [facility] Comment on above: Performed By: #### G LYHGB, LIPR #### [facility] [address] [place] [address] Bottom Liner: Oh Jean MD #### ZFAST, CP #### [facility] [address] [place] [address] Bottom Liner: Sy Rojas MD ALT [Catalytic activity/Vol] 23 U/L Normal 5-41 [facility] Comment on above: Performed By: #### G LYHGB, LIPR #### [address] [address] Bottom Liner: Oh Jean MD #### ZFAST, CP #### [facility] [address] [place] [address] Bottom Liner: Sy Rojas MD Anion gap [Moles/Vol] 14 mmol/L Normal 9-17 [facility] Comment on above: Performed By: #### G LYHGB, LIPR #### [facility] [address] [place] [address] Bottom Liner: Oh Jean MD #### EVER, CP #### [facility] [address] [place] [address] Bottom Liner: Sy Rojas MD AST [Catalytic activity/Vol] 26 U/L Normal <40 [facility] Comment on above: Performed By: #### G LYHGB, LIPR #### [facility] [address] [place] [address] Bottom Liner: Oh Jean MD #### EVER, CP #### [facility] [address] [place] [address] Bottom Liner: Sy Rojas MD Bilirubin [Mass/Vol] 1.8 mg/dL High 0.3-1.2 [facility] Comment on above: Performed By: #### G LYHGB, LIPR #### [facility] [address] [place] [address] Bottom Liner: Oh Jean MD #### EVER, CP #### [facility] [address] [place] [address] Bottom Liner: Sy Rojas MD BUN/CRE Ratio 22 High 9-20 [facility] Comment on above: Performed By: #### G LYHGB, LIPR #### [facility] [address] [place] [address] Bottom Liner: Oh Jean MD #### BRYCEAST, CP #### [facility] [address] [place] [address] Bottom Liner: Sy Rojas MD Calcium [Mass/Vol] 9.7 mg/dL Normal 8.6-10.4 [facility] Comment on above: Performed By: #### G LYHGB, LIPR #### [address] [place] [address] Bottom Liner: Oh Jean MD #### EVER, CP #### [facility] [address] [place], [place] [phone] Bottom Liner: Sy Rojas MD Chloride [Moles/Vol] 105 mmol/L Normal 98-107 [facility] Comment on above: Performed By: #### G LYHGB, LIPR #### [facility] [address] [place] [address] Bottom Liner: Oh Jean MD #### EVER, CP #### [facility] [address] [place] [address] Bottom Liner: Sy Rojas MD CO2 [Moles/Vol] 21 mmol/L Normal 20-31 [facility] Comment on above: Performed By: #### Armin LYHGB, LIPR #### [facility] [address] [place] [address] Bottom Liner: Oh Jean MD #### EVER, CP #### [facility] [address] [place] [address] Bottom Liner: Sy Rojas MD Creatinine [Mass/Vol] 1.9 mg/dL High 0.7-1.2 [facility] Comment on above: Performed By: #### Armin LYHGB, LIPR #### [facility] [address] [place] [address] Bottom Liner: Oh Jean MD #### EVER, CP #### [facility] [address] [place] [address] Bottom Liner: Sy Rojas MD GFR/1.73 sq M.predicted among non-blacks MDRD (S/P/Bld) [Vol rate/Area] 39 mL/min/{1.73_m2} Low >60 [facility] Comment on above: Result Comment: These results [...] renal tubular secretion. Performed By: #### G LYLORI, LIPR #### [address] [address] Bottom Liner: Oh Jean MD #### BRYCEAST, CP #### [facility] [address] [place] [address] Bottom Liner: Sy Rojas MD Glucose [Mass/Vol] 95 mg/dL Normal 70-99 [facility] Comment on above: Performed By: #### Armin ROJAS, LIPR #### [address] [address] Bottom Liner: Oh Jean MD #### ZFAST, CP #### [facility] [address] [place] [address] Bottom Liner: Sy Rojas MD Potassium [Moles/Vol] 5.6 mmol/L High 3.7-5.3 [facility] Comment on above: Performed By: #### Armin LYHGReina, LIPR #### [address] [address] Bottom Liner: Oh Jean MD #### ZFAST, CP #### [facility] [address] [place] [address] Bottom Liner: Sy Rojas MD Protein [Mass/Vol] 6.7 g/dL Normal 6.4-8.3 [facility] Comment on above: Performed By: #### G LYHGB, LIPR #### [address] [address] Bottom Liner: Oh Jean MD #### ZFAST, CP #### [facility] [address] [place] [address] Bottom Liner: Sy Rojas MD Sodium [Moles/Vol] 140 mmol/L Normal 135-144 [facility] Comment on above: Performed By: #### G LYHGB, LIPR #### [address] [phone] Bottom Liner: Oh Jean MD #### ZFAST, CP #### [facility] [address] [place] [phone] Bottom Liner: Sy Rojas MD Urea nitrogen [Mass/Vol] 42 mg/dL High 8-23 [facility] Comment on above: Performed By: #### G LYHGB, LIPR #### [address] [phone] Bottom Liner: Oh Jean MD #### ZFAST, CP #### [facility] [address] [place] [phone] Bottom Liner: Sy Rojas MD Albumin [Mass/Vol] 3.6 g/dL Normal 3.5-5.2 [facility] Comment on above: Performed By: #### Z FAST, CDP, CP, MG, TSHX #### [facility] [address] [place] [phone] Bottom Liner: Sy Rojas MD #### LIPR, VD25 #### [address] [phone] Bottom Liner: Oh Jean MD Alkaline Phos 172 U/L High 40-129 [facility] Comment on above: Performed By: #### Z FAST, CDP, CP, MG, TSHX #### [facility] [address] [place] [phone] Bottom Liner: Sy Rojas MD #### LIPR, VD25 #### [facility] [address] [place], [place] [phone] Bottom Liner: Oh Jean MD ALT [Catalytic activity/Vol] 22 U/L Normal 5-41 [facility] [facility] Comment on above: Performed By: #### Z FAST, CDP, CP, MG, TSHX #### [facility] [address] [place], [place] [id number] Bottom Liner: Sy Rojas MD #### LIPR, VD25 #### [address] [address] [place], [place] [id number] Bottom Liner: Oh Jean MD Anion gap [Moles/Vol] 12 mmol/L Normal 9-17 [facility] Comment on above: Performed By: #### Z FAST, CDP, CP, MG, TSHX #### [facility] [address] [place] [address] Bottom Liner: Sy Rojas MD #### LIPR, VD25 #### [address] [place], [place] [id number] Bottom Liner: Oh Jean MD AST [Catalytic activity/Vol] 25 U/L Normal <40 [facility] Comment on above: Performed By: #### Z FAST, CDP, CP, MG, TSHX #### [facility] [address] [place] [address] Bottom Liner: Sy Rojas MD #### LIPR, VD25 #### [address] [id number] Bottom Liner: Oh Jean MD Bilirubin [Mass/Vol] 1.8 mg/dL High 0.3-1.2 [facility] Comment on above: Performed By: #### Z FAST, CDP, CP, MG, TSHX #### [facility] [address] [place], [place] [id number] Bottom Liner: Sy Rojas MD #### LIPR, VD25 #### [address] [id number] Bottom Liner: Oh Jean MD BUN/CRE Ratio 22 High 9-20 [facility] Comment on above: Performed By: #### Z FAST, CDP, CP, MG, TSHX #### [facility] [address] [phone] ( Bottom Liner: Sy Rojas MD #### LIPR, VD25 #### [address] [id number] Bottom Liner: Oh Jean MD Calcium [Mass/Vol] 9.8 mg/dL Normal 8.6-10.4 [facility] Comment on above: Performed By: #### Anna FAST, CDP, CP, MG, TSHX #### [facility] [address] [place] [address] Bottom Liner: yS Rojas MD #### LIPR, VD25 #### [address] [id number] Bottom Liner: Oh Jean MD Chloride [Moles/Vol] 105 mmol/L Normal 98-107 [facility] Comment on above: Performed By: #### Anna FAST, CDP, CP, MG, TSHX #### [facility] [address] [place] [address] Bottom Liner: Sy Rojas MD #### LIPR, VD25 #### [address] [id number] Bottom Liner: Oh Jean MD CO2 [Moles/Vol] 23 mmol/L Normal 20-31 [facility] Comment on above: Performed By: #### Z FAST, CDP, CP, MG, TSHX #### [facility] [address] [place], [place] [phone] Bottom Liner: Sy Rojas MD #### GREGORIO25 #### [address] [place], [place] [id number] Bottom Liner: Oh Jean MD Creatinine [Mass/Vol] 1.9 mg/dL High 0.7-1.2 [facility] Comment on above: Performed By: #### Z FAST, CDP, CP, MG, TSHX #### [facility] [address] [place] [address] Bottom Liner: Sy Rojas MD #### GREGORIO25 #### [address] [address] Bottom Liner: Oh Jean MD GFR/1.73 sq M.predicted among non-blacks MDRD (S/P/Bld) [Vol rate/Area] 39 mL/min/{1.73_m2} Low >60 [facility] Comment on above: Result Comment: These results [...] affects renal tubular secretion. Performed By: #### Anna FAST, CDP, CP, MG, TSHX #### [facility] [address] [place] [address] Bottom Liner: Sy Rojas MD #### GREGORIO25 #### [address] [id number] Bottom Liner: Oh Jean MD Glucose [Mass/Vol] 93 mg/dL Normal 70-99 [facility] Comment on above: Performed By: #### Z FAST, CDP, CP, MG, TSHX #### [facility] [address] [place], [place] [phone] Bottom Liner: Sy Rojas MD #### GAMALIEL, VD25 #### [address] [phone] Bottom Liner: Oh Jean MD Potassium [Moles/Vol] 5.5 mmol/L High 3.7-5.3 [facility] Comment on above: Performed By: #### Z FAST, CDP, CP, MG, TSHX #### [facility] [address] [place], [place] [phone] Bottom Liner: Sy Rojas MD #### GAMALIEL VD25 #### [address] [id number] Bottom Liner: Oh Jean MD Protein [Mass/Vol] 6.8 g/dL Normal 6.4-8.3 [facility] Comment on above: Performed By: #### Anna FAST, CDP, CP, MG, TSHX #### [facility] [address] [place], [place] [id number] Bottom Liner: Sy Rojas MD #### GAMALIEL VD25 #### [address] [phone] Bottom Liner: Oh Jean MD Sodium [Moles/Vol] 140 mmol/L Normal 135-144 [facility] Comment on above: Performed By: #### Anna FAST, CDP, CP, MG, TSHX #### [facility] [address] [place] [address] Bottom Liner: Sy Rojas MD #### GAMALIEL VD25 #### [address] [id number] Bottom Liner: Oh Jean MD Urea nitrogen [Mass/Vol] 41 mg/dL High 8-23 [facility] Comment on above: Performed By: #### Z FAST, CDP, CP, MG, TSHX #### [facility] [address] [place] [address] Bottom Liner: Sy Rojas MD #### LIPR, VD25 #### [address] [address] Bottom Liner: Oh Jean MD Hemoglobin A1Con 02-20-2023 Glucose [Mass/Vol] 160 mg/dL Normal [facility] Comment on above: Result Comment: The ADA and AACC recommend providing the estimated average glucose result to permit better patient understanding of their HBA1c result. Performed By: #### G LYHGB, LIPR #### [address] [address] Bottom Liner: Oh Jean MD #### BRYCEAST, CP #### [facility] [address] [place], [place] [phone] Bottom Liner: Sy Rojas MD HbA1c (Bld) [Mass fraction] 7.2 % High 4.0-6.0 [facility] Comment on above: Performed By: #### G LYHGB, LIPR #### [address] [address] Bottom Liner: Oh Jean MD #### BRYCEAST, CP #### [facility] [address] [place], [place] [phone] Bottom Liner: Sy Rojas MD Lipid Profileon 02-20-2023 Cholesterol [Mass/Vol] 64 mg/dL Normal <200 [facility] Comment on above: Result Comment: Cholesterol Guidelines: <200 Desirable 200-240 Borderline >240 Undesirable Performed By: #### G LYHGB, LIPR #### [address] [address] Bottom Liner: Oh Jean MD #### ZFAST, CP #### [facility] [address] [place], [place] [phone] Bottom Liner: Sy Rojas MD Cholesterol in HDL [Mass/Vol] 26 mg/dL Low >40 [facility] Comment on above: Result Comment: HDL Guidelines: <40 Undesirable 40-59 Borderline >59 Desirable Performed By: #### G LYHGB, LIPR #### [address] [place] [address] Bottom Liner: Oh Jean MD #### BRYCEAST, CP #### [facility] [address] [place], [place] [phone] Bottom Liner: Sy Rojas MD Cholesterol in LDL [Mass/Vol] 23 mg/dL Normal 0-130 [facility] Comment on above: Result Comment: LDL Guidelines: <100 Desirable 100-129 Near to/above Desirable 130-159 Borderline >159 Undesirable Direct (measured) LDL and calculated LDL are not interchangeable tests. Performed By: #### G LYHGReina, LIPR #### [address] [place] [address] Bottom Liner: Oh Jean MD #### EVER, CP #### [facility] [address] [place], [place] [phone] Bottom Liner: Sy Rojas MD Cholesterol.total/Cho lesterol in HDL [Mass ratio] 2.5 {ratio} Normal <5 [facility] Comment on above: Performed By: #### G LYHGB, LIPR #### [facility] [address] [place] [phone] Bottom Liner: Oh Jean MD #### ZFAST, CP #### [facility] [address] [place], [place] [phone] Bottom Liner: Sy Rojas MD Triglyceride [Mass/Vol] 73 mg/dL Normal <150 [facility] Comment on above: Result Comment: Triglyceride Guidelines: <150 Desirable 150-199 Borderline 200-499 High >499 Very high Based on AHA Guidelines for fasting triglyceride, May 2012. Performed By: #### G LYHGB, LIPR #### [address] [place] [address] Bottom Liner: Oh Jean MD #### EVER, CP #### [facility] [address] [place] [address] Bottom Liner: Sy Rojas MD Cholesterol [Mass/Vol] 62 mg/dL Normal <200 [facility] Comment on above: Result Comment: Cholesterol Guidelines: <200 Desirable 200-240 Borderline >240 Undesirable Performed By: #### G LYHGB, LIPR #### [address] [address] Bottom Liner: Oh Jean MD #### EVER, CP #### [facility] [address] [place] [address] Bottom Liner: Sy Rojas MD Cholesterol in HDL [Mass/Vol] 26 mg/dL Low >40 [facility] Comment on above: Result Comment: HDL Guidelines: <40 Undesirable 40-59 Borderline >59 Desirable Performed By: #### G LYHGB, LIPR #### [address] [address] Bottom Liner: Oh Jean MD #### EVER, CP #### [facility] [address] [place] [address] Bottom Liner: Sy Rojas MD Cholesterol in LDL [Mass/Vol] 22 mg/dL Normal 0-130 [facility] Comment on above: Result Comment: LDL Guidelines: <100 Desirable 100-129 Near to/above Desirable 130-159 Borderline >159 Undesirable Direct (measured) LDL and calculated LDL are not interchangeable tests. Performed By: #### G LYHGB, LIPR #### [address] [address] Bottom Liner: Oh Jean MD #### ZFAST, CP #### [facility] [address] [place] [address] Bottom Liner: Sy Rojas MD Cholesterol.total/Cho lesterol in HDL [Mass ratio] 2.4 {ratio} Normal <5 [facility] Comment on above: Performed By: #### G LYHGB, LIPR #### [facility] [address] [place] [address] Bottom Liner: Oh Jean MD #### ZFAST, CP #### [facility] [address] [place] [address] Bottom Liner: Sy Rojas MD Triglyceride [Mass/Vol] 72 mg/dL Normal <150 [facility] Comment on above: Result Comment: Triglyceride Guidelines: <150 Desirable 150-199 Borderline 200-499 High >499 Very high Based on AHA Guidelines for fasting triglyceride, May 2012. Performed By: #### G LYHGB, LIPR #### [address] [address] Bottom Liner: Oh Jean MD #### ZFAST, CP #### [facility] [address] [place] [address] Bottom Liner: Sy Rojas MD Magnesiumon 02-20-2023 Magnesium [Mass/Vol] 1.9 mg/dL Normal 1.6-2.6 [facility] Comment on above: Performed By: #### Z FAST, CDP, CP, MG, TSHX #### [facility] [address] [place] [address] Bottom Liner: Sy Rojas MD #### LIPR, VD25 #### [address] [address] Bottom Liner: Oh Jean MD Patient fasting?on 3 Patient fasting? yes Normal [facility] Comment on above: Performed By: #### G LYHGB, LIPR #### [facility] [address] [place] [address] Bottom Liner: Oh Jean MD #### ZFAST, CP #### [facility] [address] [place], [place] [phone] Bottom Liner: Sy Rojas MD Patient fasting? yes Normal [facility] Comment on above: Performed By: #### Z FAST, CDP, CP, MG, TSHX #### [facility] [address] [place], [place] [phone] Bottom Liner: Sy Rojas MD #### LIPR, VD25 #### [address] [phone] Bottom Liner: Oh Jean MD TSH w/reflex to FT4on 2022 Thyroid Stim. Horm. 2.99 uIU/mL Normal 0.30-5.00 [facility] Comment on above: Performed By: #### Z FAST, CDP, CP, MG, TSHX #### [facility] [address] [place], [place] [phone] Bottom Liner: Sy Rojas MD #### LIPR, VD25 #### [address] [id number] Bottom Liner: hO Jean MD Vitamin D 25 OHon 02-20-2023 Vitamin D 25 OH 54.9 ng/mL Normal >29.9 [facility] Comment on above: Result Comment: Reference Range: Vitamin D status Range Deficiency <20 ng/mL Mild Deficiency 20-30 ng/mL Sufficiency 30-100 ng/mL Toxicity >100 ng/mL Performed By: #### G LYHGB, LIPR #### [address] [address] Bottom Liner: Oh Jean MD #### ZFAST, CP #### [facility] [address] [place], [place] [phone] Bottom Liner: Sy Rojas MD XR CHEST (2 VW)on 02-20-2023 Radiology Study observation (narrative) [facility] [employer] Protime-INRon 01-04-2023 INR Coag (Bld) [Relative time] 3.1 {INR} [facility]: CBC AUTO DIFFon 12-29-2022 BASO # 0.0 103/ul Normal 0.0-0.1 [facility] Comment on above: Performed By: #### C BC #### [facility] [address] [address] [address] Bertha Oden Basophils/100 WBC (Bld) 0.5 % Normal 0.2-2.0 [facility] Comment on above: Performed By: #### C BC #### [facility] [address] [place] [address] Dr. Bertha Oden EO # 0.1 103/ul Normal 0.0-0.7 [facility] Comment on above: Performed By: #### C BC #### [facility] [address] [address] [address] Bertha Oden Eosinophils/100 WBC (Bld) 1.0 % Normal 0.9-7.0 [facility] Comment on above: Performed By: #### C BC #### [facility] [address] [place] [address] Dr. Bertha Oden Erythrocyte distribution width (RBC) [Ratio] 18.2 % Critically high 11.0-15.0 [facility] Comment on above: Performed By: #### C BC #### [facility] [address] [place] [address] Dr. Bertha Oden Hematocrit (Bld) [Volume fraction] 40.8 % Critically low 42.0-54.0 [facility] Comment on above: Performed By: #### C BC #### [facility] [address] [place] [address] Dr. Bertha Oden Hemoglobin (Bld) [Mass/Vol] 12.5 g/dL Critically low 14.0-18.0 [facility] Comment on above: Performed By: #### C BC #### [facility] [address] [place] [address] Dr. Bertha Oden IG # 0.03 10e3/ul Normal 0.00-0.03 [facility] Comment on above: Performed By: #### C BC #### [facility] [address] [place] [address] Dr. Bertha Oden IG % 0.3 % Normal 0.0-0.5 [facility] Comment on above: Performed By: #### C BC #### [facility] [address] [place] [address] Dr. Bertha Oden LYMPH # 0.9 103/ul Critically low 1.2-3.8 [facility] Comment on above: Performed By: #### C BC #### [facility] [address] [place] [address] Dr. Bertha Oden Lymphocytes/100 WBC (Bld) 10.6 % Critically low 20.5-60.0 [facility] Comment on above: Performed By: #### C BC #### [facility] [address] [place] [address] Dr. Bertha Oden MANUAL DIFF REQ NO Normal [facility] Comment on above: Performed By: #### C BC #### [facility] [address] [place] [address] Dr. Bertha Oden MCH (RBC) [Entitic mass] 25.8 pg Critically low 25.9-34.0 [facility] Comment on above: Performed By: #### C BC #### [facility] [address] [place] [address] Dr. Bertha Oden MCHC (RBC) [Mass/Vol] 30.6 g/dL Normal 29.9-35.2 [facility] Comment on above: Performed By: #### C BC #### [facility] [address] [place] [address] Dr. Bertha Oden MCV (RBC) [Entitic vol] 84.3 fL Normal 80.0-94.0 [facility] Comment on above: Performed By: #### C BC #### [facility] [address] [place] [address] Dr. Bertha Oden MONO # 0.8 103/ul Normal 0.3-0.8 [facility] Comment on above: Performed By: #### C BC #### [facility] [address] [place] [address] Dr. Bertha Oden Monocytes/100 WBC (Bld) 9.5 % Normal 1.7-12.0 [facility] Comment on above: Performed By: #### C BC #### [facility] [address] [place] [address] Dr. Bertha Oden NEUT # 6.8 103/ul Critically high 1.4-6.5 [facility] Comment on above: Performed By: #### C BC #### [facility] [address] [place] [address] Dr. Bertha Oden Neutrophils/100 WBC (Bld) 78.1 % Critically high 43.0-75.0 [facility] Comment on above: Performed By: #### C BC #### [facility] [address] [place] [address] Dr. Bertha Oden Platelet mean volume (Bld) [Entitic vol] 9.5 fL Normal 9.5-13.5 [facility] Comment on above: Performed By: #### C BC #### [facility] [address] [place] [address] Dr. Bertha Oden PLT 285 103/ul Normal 150-450 [facility] Comment on above: Performed By: #### C BC #### [facility] [address] [place] [address] Dr. Bertha Oden RBC 4.84 106/ul Normal 4.70-6.10 [facility] Comment on above: Performed By: #### C BC #### [facility] [address] [place] [address] Dr. Bertha Oden WBC 8.7 103/ul Normal 4.0-11.0 [facility] Comment on above: Performed By: #### C BC #### [facility] [address] [place] [address] Dr. Bertha Oden CRPon 12-29-2022 CRP 2.9 mg/dL Critically high <=1.0 [facility] Comment on above: Performed By: #### B MP, URIC, CRP #### [facility] [address] [address] [address] Bertha Oden PROF CHEM 8 (BAS METB)on Anion gap [Moles/Vol] 15.0 mmol/L Normal [facility] Comment on above: Performed By: #### B MP, URIC, CRP #### [facility] [address] [address] [address] Bertha Oden Calcium [Mass/Vol] 9.3 mg/dL Normal 8.5-10.1 [facility] Comment on above: Performed By: #### B MP, URIC, CRP #### [facility] [address] [address] [address] Bertha Oden Chloride [Moles/Vol] 102 mmol/L Normal 98-107 [facility] Comment on above: Performed By: #### B MP, URIC, CRP #### [facility] [address] [address] [address] Bertha Oden CO2 [Moles/Vol] 26.6 mmol/L Normal 21.0-32.0 [facility] Comment on above: Performed By: #### B MP, URIC, CRP #### [facility] [address] [address] [address] Bertha Oden Creatinine [Mass/Vol] 1.99 mg/dL Critically high 0.70-1.30 [facility] Comment on above: Performed By: #### B MP, URIC, CRP #### [facility] [address] [address] [address] Bertha Oden EGFR-AF MALAYSIAN 41 mL/min/1.73m2 Critically low >=60 [facility] Comment on above: Performed By: #### B MP, URIC, CRP #### [facility] [address] [address] [address] Bertha Oden EGFR-NON AF MALAYSIAN 34 mL/min/1.73m2 Critically low >=60 [facility] Comment on above: Performed By: #### B MP, URIC, CRP #### [facility] [address] [address] [address] Bertha Oden Glucose [Mass/Vol] 183 mg/dL Critically high 74-106 T [facility] Comment on above: Performed By: #### B MP, URIC, CRP #### [facility] [address] [place] [address] Dr. Bertha Oden Potassium [Moles/Vol] 4.6 mmol/L Normal 3.5-5.1 [facility] Comment on above: Performed By: #### B MP, URIC, CRP #### [facility] [address] [place] [address] Dr. Bertha Oden Sodium [Moles/Vol] 139 mmol/L Normal 136-145 [facility] Comment on above: Performed By: #### B MP, URIC, CRP #### [facility] [address] [place] [address] Dr. Bertha Oden Urea nitrogen [Mass/Vol] 45.0 mg/dL Critically high 7.0-18.0 [facility] Comment on above: Performed By: #### B MP, URIC, CRP #### [facility] [address] [place] [address] Dr. Bertha Oden Urea nitrogen/Creatinine [Mass ratio] 22.6 mg/mg Normal [facility] Comment on above: Performed By: #### B MP, URIC, CRP #### [facility] [address] [place] [address] Dr. Bertha Oden SED RATE WESTERGRENon 2022 SED RATE 36 mm/hr Critically high <=20 [facility] Comment on above: Performed By: #### S EDR #### [facility] [address] [place] [address] Dr. Bertha Oden URIC ACID SERUMon 12-29-2022 Urate [Mass/Vol] 9.3 mg/dL Critically high 3.5-7.2 [facility] Comment on above: Performed By: #### B MP, URIC, CRP #### [facility] [address] [address] [address] Bertha Oden XR HAND LT MIN [...] by: LIONEL NICHOLS Date: 2022-12-29 21:02 Normal [facility] Protime-INRon 11-23-2022 INR Coag (Bld) [Relative time] 2.4 {INR} [employer] Work Phone: [employer] Work Phone: Protime-INRon 10-26-2022 INR Coag (Bld) [Relative time] 3.1 {INR} [facility] Work Phone: [employer] Work Phone: Protime-INRon 09-21-2022 INR Coag (Bld) [Relative time] 2.3 {INR} [facility] [employer] Work Phone: [employer] Work Phone: Protime-INRon 08-24-2022 INR Coag (Bld) [Relative time] 3.2 {INR} [facility] [employer] Work Phone: [employer] Work Phone: Protime-INRon 07-27-2022 INR Coag (Bld) [Relative time] 3.9 {INR} [facility] Work Phone: [employer] Work Phone: Protime-INRon 06-01-2022 INR Coag (Bld) [Relative time] 4.2 {INR} [facility] Work Phone: [employer] Work Phone: Protime-INRon 04-27-2022 INR Coag (Bld) [Relative time] 2 {INR} [facility] [employer] Work Phone: [employer] Work Phone: Protime-INRon 03-30-2022 INR Coag (Bld) [Relative time] 2.3 {INR} [employer] Work Phone: [employer] Work Phone: Protime-INRon 03-16-2022 INR Coag (Bld) [Relative time] 1.8 {INR} [employer] Work Phone: [employer] Work Phone: Protime-INRon 03-02-2022 INR Coag (Bld) [Relative time] 1.8 {INR} [employer] Work Phone: [employer] Work Phone: XR CHEST (2 VW)on 02-23-2022 Mild cardiomegaly with left AICD. No acute cardiopulmonary abnormality. [facility] RIS CONSOLIDATED EXAM: XR CHEST (2 VW ). HISTORY: I25.10. CAD. I10 hypertension. COMPARISON: 12/28/2021 chest. TECHNIQUE: PA and lateral views. FINDINGS: Heart size is mildly prominent. There is a left single lead AICD in place. Aortic arch calcification is present. Central vasculature is satisfactory. Lung arguelles are expanded without infiltration, consolidation, edema, or effusion. Osseous structures appear intact. [facility] RIS CONSOLIDATED Guru Ramos, - 02/23/2022 EXAM: [...] with left AICD. No acute cardiopulmonary abnormality. [facility] [employer] Work Phone: XR CHEST (2 VW)Ordered By: Beni Ramos on 02-23-2022 [facility] [employer] Work Phone: CBC Auto Differentialon 02-04 Absolute Eos # 0.20 [facility] Absolute Lymph # 1.60 [facility] Absolute [place] # 0.80 [facility] RS [facility] [employer] Basophils (Bld) [#/Vol] 0.10 10*3/uL [facility] Basophils/100 WBC (Bld) 1 % 0 - 2 % [facility] Differential Type YES [facility] Eosinophils/100 WBC (Bld) 2 % 0 - 5 % [facility] Hematocrit (Bld) [Volume fraction] 38.3 % Low 41 - 53 % [facility] Hemoglobin (Bld) [Mass/Vol] 12.9 g/dL Low 13.5 - 17.5 g/dL [facility] Interpretation and review of laboratory results Abnormal [facility] Lymphocytes/100 WBC (Bld) 18 % 13 - 44 % [facility] MCH (RBC) [Entitic mass] 29.7 pg 26 - 34 pg [facility] MCHC (RBC) [Mass/Vol] 33.5 g/dL 31 - 3 7 g/dL [facility] MCV (RBC) [Entitic vol] 88.6 fL 80 - 100 fL [facility] Monocytes/100 WBC (Bld) 10 % High 5 - 9 % [facility] Platelet distribution width (Bld) [Ratio] 17.7 % High 12.1 - 15.2 % [facility] Platelets (Bld) [#/Vol] 239 10*3/uL [facility] RBC (Bld) [#/Vol] 4.33 10*6/uL Low 4.5 - 5.9 m/uL [facility] Segmented neutrophils/100 WBC (Bld) 69 % 39 - 75 % [facility] Segs Absolute 6.10 [facility] WBC (Bld) [#/Vol] 8.7 10*3/uL [facility] Comprehensive Metabolic Pane yonis 02-22-2022 Albumin [Mass/Vol] 4.1 g/dL 3.5 - 5.2 g/dL [facility] ALP (Bld) [Catalytic activity/Vol] 66 U/L 40 - 129 U/L [facility] ALT [Catalytic activity/Vol] 18 U/L 5 - 41 U/L [facility] Anion gap [Moles/Vol] 13 mmol/L 9 - 17 mmol/L [facility] AST [Catalytic activity/Vol] 16 U/L NINF - 40 U/L [facility] Bilirubin [Mass/Vol] 1.09 mg/dL 0.3 - 1 .2 mg/dL [facility] Calcium [Mass/Vol] 10.0 mg/dL 8.6 - 10. 4 mg/dL [facility] Chloride [Moles/Vol] 101 mmol/L 98 - 10 7 mmol/L [facility] CO2 [Moles/Vol] 26 mmol/L 20 - 31 mmol/L [facility] Creatinine [Mass/Vol] 1.59 mg/dL High 0.7 - 1.2 mg/dL [facility] Free PSA/Total PSA [Mass fraction] 7.2 g/dL 6.4 - 8.3 g/dL [facility] GFR 53 mL/min Low 60 - PI NF mL/min [facility] GFR Non- 44 mL/min Low 60 - PINF mL/min [facility] GFR/1.73 sq M.predicted MDRD (S/P/Bld) [Vol rate/Area] [facility] Comment on above: Average GFR for 60-6 9 years old: 85 mL/min/1.73sq m Chronic Kidney Disease: <60 mL/min/1.73sq m Kidney failure: <15 mL/min/1.73sq m eGFR calculated using average adult body mass. Additional eGFR calculator available at: http://www.HealthyOut.ShaveLogic/multiple_crcl_2012.htm Glucose [Mass/Vol] 97 mg/dL 70 - 99 mg/dL [facility] [employer]Art Interpretation and review of laboratory results Abnormal [facility] [employer] Potassium [Moles/Vol] 4.7 mmol/L 3.7 - 5.3 mmol/L [facility] Sodium [Moles/Vol] 140 mmol/L 135 - 144 mmol/L [facility]ENTERVGTel Urea nitrogen (BldV) [Mass/Vol] 32 mg/dL High 8 - 23 mg/dL [facility] Urea nitrogen/Creatinine (Bld) [Mass ratio] 20 9 - 20 [facility] [employer] Hemoglobin A1Con 02-22-2022 Glucose [Mass/Vol] 146 mg/dL [facility] ChoiceMap Comment on above: The ADA and [facility] rec ommend providing the estimated average glucose result to permit better patient understanding of their HBA1c result. HbA1c (Bld) [Mass fraction] 6.7 % High 4 - 6 % [facility]ENTERV[facility] Interpretation and review of laboratory results Abnormal [facility]ENTEROpenEdATRIUM HEALTH STANLYPhotonics Healthcare [facility] Glucose [Mass/Vol] 146 mg/dL [facility] Moxsie Comment on above: The ADA and AAC rec ommend providing the estimated average glucose result to permit better patient understanding of their HBA1c result. HbA1c (Bld) [Mass fraction] 6.7 % High 4 - 6 % [facility]ERV[facility] Interpretation and review of laboratory results Abnormal [facility]ENTERPh[facility] Healthcare [facility] Lipid Panelon 02-22-2022 Cholesterol [Mass/Vol] 128 mg/dL NINF - 200 mg/dL [employer] Comment on above: Cholesterol Guidelines: <200 Desirable 200-240 Borderline >240 Undesirable Cholesterol in HDL [Mass/Vol] 32 mg/dL Low 40 - PINF mg/dL [employer] Comment on above: HDL Guidelines: <40 Undesirable 40-59 Borderline >59 Desirable Cholesterol in LDL [Mass/Vol] 52 mg/dL 0 - 130 mg/dL [employer] Comment on above: LDL Guidelines: <100 Desirable 100-129 Near to/above Desirable 130-159 Borderline >159 Undesirable Direct (measured) LDL and calculated LDL are not interchangeable tests. Cholesterol.total/Cho lesterol in HDL [Mass ratio] 4 {ratio} NINF - 5 [employer] Interpretation and review of laboratory results Abnormal [facility] [employer]Art Triglyceride [Mass/Vol] 222 mg/dL High NINF - 150 mg/dL [facility] Comment on above: Triglyceride Guidelines: <150 Desirable 150-199 Borderline 200-499 High >499 Very high Based on AHA Guidelines for fasting triglyceride, May 2012. [employer] Magnesiumon 02-22-2022 Magnesium [Mass/Vol] 1.6 mg/dL 1.6 - 2 .6 mg/dL [facility] No Panel Informationon 02-22 [facility] RobArt Patient Fasting?on 2 Patient Fasting? YES [facility] Moxsie [facility]ENTERVGTel Protime-INRon 02-22-2022 INR Coag (Bld) [Relative time] 1.4 {INR} [employer] Work Phone: [employer] Work Phone: TSH with Reflexon 02-22-2022 TSH Qn 2.10 m[IU]/L [employer] Vitamin D 25 Hydroxyon 02-22 Vit D, 25-Hydroxy 54.9 ng/mL 29.9 - PIN F ng/mL [facility] [employer]Art Comment on above: Reference Range: Vitamin D status Range Deficiency <20 ng/mL Mild Deficiency 20-30 ng/mL Sufficiency 30-100 ng/mL Toxicity >100 ng/mL [employer] XR CHEST (2 VW)on 02-22-2022 Radiology Study observation (narrative) [employer] Work Phone: Protime-INRon 02-03-2022 INR Coag (Bld) [Relative time] 2.1 {INR} [employer] Work Phone: [employer] Work Phone: Protime-INRon 01-27-2022 INR Coag (Bld) [Relative time] 6.8 {INR} [employer] Work Phone: [employer] Work Phone: Protime-INRon 01-20-2022 INR Coag (Bld) [Relative time] 2.6 {INR} [employer] Work Phone: [employer] Work Phone: Protime-INRon 01-13-2022 INR Coag (Bld) [Relative time] 6.2 {INR} [facility] [employer] Work Phone: [employer] Work Phone: VL DUP UPPER EXTREMITY VENOU S LEFTon 01-08-2022 Radiology exam is complete. No Radiologist dictation. Please follow up with ordering provider. MHPN MHW CPA Protime-INRon 01-06-2022 INR Coag (Bld) [Relative time] 2.5 {INR} [employer] Work Phone: [employer] Work Phone: ECG 12 Leadon 12-29-2021 Atrial Rate [address] [facility] P [place] [address] [facility] P-R Interval [address] [facility] Q-T Interval [address] [facility] QRS Duration [address] [facility] QTC Calculation (Bezet) [address] [facility] R [place] -[address] [facility] T [place] [address] [facility] Ventricular Rate 89 BPM [facility] Sinus rhythm with occasional Premature ventricular complexes and Fusion complexes Incomplete left bundle branch block Nonspecific T wave abnormality Abnormal ECG Confirmed by Allan Jasso MD ([id number]) on 12/29/2021 1:09:[address] [facility] Echocardiogram complete w co ntrastOrdered By: Sara Smith on 12-29-2021 Aortic valve area 2.7747 cm [facility] Work Phone: AV mean gradient 2.89172 mmHg [facility] Work Phone: AV peak gradient 4.25478 mmHg [facility] Work Phone: EF 18.3022 % [facility] Work Phone: [employer] Work Phone: Echocardiogram complete w co ntraston 12-29-2021 Patient Info Name: GREGG FOSTER Age: 66 years : 1955 Gender: Male Ht: 180 cm Wt: 108 kg BSA: 2.36 m2 HR: 71 bpm BP: 117 / 77 mmHg Heart Rhythm: Sinus Rhythm Technical Quality: Technically difficult Exam Date: 12/29/2021 10:12 AM Patient Status: Inpatient Delivery Helper: Sara Abraham RCDS Exam Type: ECHOCARDIOGRAM COMPLETE W CONTRAST Study Info Indications I50.20 - Unspecified systolic (congestive) heart failure Referring Physician: SNEHAL Enriquez; [id number] BMI: 33.33 kg/m2 Summary 1. Severe left [...] atrial septal defect repair. Cannot exclude residual vieh-wr-xzugp shunt on color Doppler. 8. No left [...] atrial septal defect repair. Cannot exclude residual urma-vt-bkxzn shunt on color Doppler. Aortic Valve The [...] Smith MD - 12/29/2021 Patient Info Name: GREGG FOSTER Age: 66 years : 1955 Gender: Male Ht: 180 cm Wt: 108 kg BSA: 2.36 m2 HR: 71 bpm BP: 117 / 77 mmHg Heart Rhythm: Sinus Rhythm Technical Quality: Technically difficult Exam Date: 12/29/2021 10:12 AM Patient Status: Inpatient Delivery Helper: Sara Abraham RCDS Exam Type: ECHOCARDIOGRAM COMPLETE W CONTRAST Study Info Indications I50.20 - Unspecified systolic (congestive) heart failure Referring Physician: SNEHAL Enriquez; [id number] BMI: 33.33 kg/m2 Summary 1. Severe left [...] atrial septal defect repair. Cannot exclude residual wglv-nd-ifcie shunt on color Doppler. 8. No left [...] atrial septal defect repair. Cannot exclude residual vosl-jz-lplpn shunt on color Doppler. Aortic Valve The [...] Normal LVOT 2D (more content not included)... [facility] Radiology Study observation (narrative) [facility] Glucose (Bld) [Mass/Vol]on 12-29-2021 Glucose [Mass/Vol] 142 mg/dL High 65 - 99 mg/dL [facility] Interpretation and review of laboratory results Abnormal [facility] INR Coag (PPP) [Relative latrell e]on 12-29-2021 Interpretation and review of laboratory results Abnormal [facility] PT Coag (PPP) [Time] 16.0 s [facility] During the induction phase of oral anticoagulation, the INR may not reflect the anticoagulation status of the patient. Therapeutic ranges for INR's are: Most clinical situations: INR 2.0-3.0 Mechanical Prosthetic Valve: INR 2.5-3.5 Critical: INR >5.0 [facility] PT/INRon 12-29-2021 INR Coag (PPP) [Relative time] 1.3 {INR} High 0.8 - 1.1 [facility] ACT Coag (Bld)on 12-28-2021 Kaolin activated time Qn (Bld) 387 seconds [facility] ANGIOGRAPHY IMAGING FOR ORon 12-28-2021 Please see OpNote in Notes tab for results. [employer] Radiology Study observation (narrative) [facility] ANGIOGRAPHY IMAGING FOR OROr dered By: Radiologist Generic on 12-28-2021 [facility] Electrolytes panel (Bld)on 12-28-2021 Anion gap [Moles/Vol] 11 mmol/L 10 - 2 0 mmol/L [facility] Chloride [Moles/Vol] 108 mmol/L 98 - 10 8 mmol/L [facility] HCO3 [Moles/Vol] 23 mmol/L 21 - 32 mmol/L [facility] Interpretation and review of laboratory results Abnormal [facility] Potassium [Moles/Vol] 5.2 mmol/L High 3.5 - 5.1 mmol/L [facility] Sodium [Moles/Vol] 137 mmol/L 135 - 145 mmol/L [facility] Glucose (Bld) [Mass/Vol]on 0 12-28-2021 Glucose [Mass/Vol] 160 mg/dL High 65 - 99 mg/dL [facility] Interpretation and review of laboratory results Abnormal [facility] Glucose [Mass/Vol] 117 mg/dL High 65 - 99 mg/dL [facility] Interpretation and review of laboratory results Abnormal [facility] Glucose [Mass/Vol] 137 mg/dL High 65 - 99 mg/dL [facility] Interpretation and review of laboratory results Abnormal [facility] INR Coag (PPP) [Relative latrell e]on 12-28-2021 Interpretation and review of laboratory results Abnormal [facility] PT Coag (PPP) [Time] 15.7 s [facility] During the induction phase of oral anticoagulation, the INR may not reflect the anticoagulation status of the patient. Therapeutic ranges for INR's are: Most clinical situations: INR 2.0-3.0 Mechanical Prosthetic Valve: INR 2.5-3.5 Critical: INR >5.0 [facility] No Panel Informationon 12-28 [facility] PT/INRon 12-28-2021 INR Coag (PPP) [Relative time] 1.3 {INR} High 0.8 - 1.1 [facility] Troponin Onceon 12-28-2021 Troponin I 33 ng/L NINF - 59 ng/L [facility] Troponin I Interpretation Normal [facility] Troponin x 2 (Now and Repeat in 3 hours)on 12-28-2021 Interp Troponin I Delta Change Delta troponin requires at least [address] [facility] Troponin I 31 ng/L NINF - 59 ng/L [facility] Protime-INRon 12-22-2021 INR Coag (Bld) [Relative time] 6.8 {INR} [employer] Work Phone: [employer] Work Phone: Protime-INRon 12-09-2021 INR Coag (Bld) [Relative time] 3.3 {INR} [employer] Work Phone: [facility] Phone: Protime-INRon 11-16-2021 INR Coag (Bld) [Relative time] 1.9 {INR} [employer] Work Phone: [facility] Phone: VL DUP CAROTID BILATERALon 0 10-26-2021 [facility] Carotid Duplex Study Patient Name KRISTIN Date of Study 10/26/2021 GREGG Bazan Date of 1955 Gender Male Age 66 year(s) Race Room Number Corporate ID [id number] # Patient Acct [id number] # MR # [id number] Delivery Helper Tabitha Jhaveri Interpreting Anali Johnson Physician Referring [...] !0.49 ! ! (more content not included)... [facility] Barry Johnson Jr., MD - 10/26/2021 [facility] Carotid Duplex Study Patient Name KRISTIN Date of Study 10/26/2021 GREGG Bazan Date of 1955 Gender Male Age 66 year(s) Race Room Number Corporate ID [id number] # Patient Acct [id number] # MR # [id number] Delivery Helper Tabitha Jhaveri Interpreting Anali Johnson Physician Referring [...] side. - Additional Measurements:ICAPSV/CCAP SV 1.32.ICAEDV/CCAEDV 2.99. [employer] Phone: Radiology Study observation (narrative) [employer] Phone: VL DUP CAROTID BILATERALOrde red By: Barry Johnson on 10-26-2021 [employer] Phone: Protime-INRon 08-10-2021 INR Coag (Bld) [Relative time] 3.2 {INR} [employer] Phone: [employer] Phone: Protime-INROrdered By: Crispin patel Provider on 06-07-2021 INR Coag (Bld) [Relative time] 3.1 {INR} [employer] Phone: [employer] Work Phone: Protime-INROrdered By: Crispin rical Provider on 04-23-2021 INR Coag (Bld) [Relative time] 2.6 {INR} [facility] Work Phone: [employer] Work Phone: Protime-INROrdered By: Histo rical Provider on 03-01-2021 INR Coag (Bld) [Relative time] 2.8 {INR} [employer] Work Phone: [employer] Work Phone: CBC Auto DifferentialOrdered By: Rafa Nicole on 02-25-2021 [employer] Eos # 0.20 [employer] [facility] Work Phone: [employer] Immature Granulocyte NOT REPORTED [facility] Work Phone: [employer] Lymph # 1.60 [employer] [facility] Work Phone: Absolute [place] # 0.80 [employer] [facility] Work Phone: Basophils (Bld) [#/Vol] 0.00 10*3/uL [employer] Work Phone: Basophils/100 WBC (Bld) 1 % 0 - 2 % [employer] Work Phone: Differential Type YES [facility] Work Phone: Eosinophils/100 WBC (Bld) 2 % 0 - 5 % [employer] Work Phone: Hematocrit (Bld) [Volume fraction] 45.5 % 41 - 53 % [employer] Work Phone: Hemoglobin.gastrointe stinal spec 1 Ql (Stl) 15.2 g/dL 13.5 - 17.5 g/dL [employer] Work Phone: Immature Granulocytes NOT REPORTED 0 % M [facility] [employer] Work Phone: Lymphocytes/100 WBC (Bld) 18 % 13 - 44 % [employer] Work Phone: MCH (RBC) [Entitic mass] 30.3 pg 26 - 34 pg [employer] Work Phone: MCHC (RBC) [Mass/Vol] 33.4 g/dL 31 - 3 7 g/dL [employer] Work Phone: MCV (RBC) [Entitic vol] 90.5 fL 80 - 100 fL [employer] Work Phone: Monocytes/100 WBC (Bld) 9 % 5 - 9 % [employer] Work Phone: NRBC Automated NOT REPORTED per 100 WBC [employer] Work Phone: Platelet distribution width (Bld) [Ratio] 15.1 % 12.1 - 15.2 % [employer] Phone: Platelet Estimate NOT REPORTED [employer] Phone: Platelet mean volume (Bld) [Entitic vol] NOT REPORTED 6.0 - 12.0 fL [employer] Work Phone: Platelets (Bld) [#/Vol] 210 10*3/uL [employer] Phone: RBC (Bld) [#/Vol] 5.02 10*6/uL 4.5 - 5.9 m/uL [employer] Phone: RBC (Bld) [#/Vol] NOT REPORTED [employer] Work Phone: Segmented neutrophils/100 WBC (Bld) 70 % 39 - 75 % [employer] Work Phone: Segs [employer] 6[employer] Work Phone: WBC (Bld) [#/Vol] 9.2 10*3/uL [employer] Work Phone: WBC (Bld) [#/Vol] NOT REPORTED [employer] Work Phone: [facility] Work Phone: Comprehensive Metabolic Pane lOrdered By: Rafa Nicole on 02-25-2021 Albumin [Mass/Vol] 4 g/dL 3.5 - 5.2 g/dL [employer] Phone: Albumin/Globulin Ratio NOT REPORTED [employer] Phone: ALP (Bld) [Catalytic activity/Vol] 60 U/L 40 - 129 U/L [employer] Work Phone: ALT [Catalytic activity/Vol] 19 U/L 5 - 41 U/L [employer] Phone: Anion gap [Moles/Vol] 9 mmol/L 9 - 17 mmol/L [employer] Phone: AST [Catalytic activity/Vol] 18 U/L <40 [employer] Phone: Bilirubin [Mass/Vol] 1.55 mg/dL High 0.30 - 1.20 mg/dL [employer] Phone: Calcium [Mass/Vol] 9.6 mg/dL 8.6 - 10. 4 mg/dL [employer] Phone: Chloride [Moles/Vol] 102 mmol/L 98 - 10 7 mmol/L [employer] Phone: CO2 [Moles/Vol] 28 mmol/L 20 - 31 mmol/L [employer] Phone: Creatinine [Mass/Vol] 1.61 mg/dL High 0.70 - 1.20 mg/dL [employer] Phone: Free PSA/Total PSA [Mass fraction] 7.3 g/dL 6.4 - 8.3 g/dL [employer] Phone: GFR 53 mL/min Low >[address] Phone: GFR Non- 44 mL/min Low >60 [employer] Work Phone: GFR/1.73 sq M.predicted MDRD (S/P/Bld) [Vol rate/Area] [employer] Phone: Comment on above: Average GFR for 60-6 9 years old: 85 mL/min/1.73sq m Chronic Kidney Disease: <60 mL/min/1.73sq m Kidney failure: <15 mL/min/1.73sq m eGFR calculated using average adult body mass. Additional eGFR calculator available at: http://www.FansUnite/multiple_crcl_2012.htm GFR/1.73 sq M.predicted MDRD (S/P/Bld) [Vol rate/Area] NOT REPORTED [employer] Phone: Glucose [Mass/Vol] 88 mg/dL 70 - 99 mg/dL [employer] Phone: Interpretation and review of laboratory results Abnormal [employer] Phone: Potassium [Moles/Vol] 4.5 mmol/L 3.7 - 5.3 mmol/L [employer] Phone: Sodium [Moles/Vol] 139 mmol/L 135 - 144 mmol/L [employer] Phone: Urea nitrogen (BldV) [Mass/Vol] 26 mg/dL High 8 - 23 mg/dL [employer] Phone: Urea nitrogen/Creatinine (Bld) [Mass ratio] 16 [employer] Phone: Hemoglobin [id number] By: Dimas Cerda on 02-25-2021 Glucose [Mass/Vol] 143 mg/dL [employer] Phone: Comment on above: The ADA and AACC rec ommend providing the estimated average glucose result to permit better patient understanding of their HBA1c result. HbA1c (Bld) [Mass fraction] 6.6 % High 4.0 - 6.0 % [employer] Phone: Interpretation and review of laboratory results Abnormal [employer] Phone: [employer] Phone: Lipid PanelOrdered By: Rafa Nicole on 02-25-2021 Cholesterol [Mass/Vol] 137 mg/dL <200 [employer] Phone: Comment on above: Cholesterol Guidelines: <200 Desirable 200-240 Borderline >240 Undesirable Cholesterol in HDL [Mass/Vol] 32 mg/dL Low >40 [employer] Phone: Comment on above: HDL Guidelines: <40 Undesirable 40-59 Borderline >59 Desirable Cholesterol in LDL [Mass/Vol] 72 mg/dL 0 - 130 mg/dL [employer] Phone: Comment on above: LDL Guidelines: <100 Desirable 100-129 Near to/above Desirable 130-159 Borderline >159 Undesirable Direct (measured) LDL and calculated LDL are not interchangeable tests. Cholesterol in VLDL [Mass/Vol] NOT REPORTED High 1 - 30 mg/dL [employer] Phone: Cholesterol.total/Cho lesterol in HDL [Mass ratio] 4.3 {ratio} <5 [employer] Phone: Interpretation and review of laboratory results Abnormal [employer] Phone: Triglyceride [Mass/Vol] 164 mg/dL High <150 [employer] Phone: Comment on above: Triglyceride Guidelines: <150 Desirable 150-199 Borderline 200-499 High >499 Very high Based on AHA Guidelines for fasting triglyceride, May 2012. [employer] Phone: MagnesiumOrdered By: Rafa villafana on 02-25-2021 Magnesium [Mass/Vol] 1.9 mg/dL 1.6 - 2 .6 mg/dL [employer] Phone: No Panel InformationOrdered By: Rafa Nicole on 02-25-2021 [employer] Phone: Patient Fasting?Ordered By: Rafa Nicole on 02-25-2021 Patient Fasting? yes [employer] Phone: [employer] Phone: TSH with ReflexOrdered By: Armin Nicole on 02-25-2021 TSH Qn 2.72 m[IU]/L [employer] Phone: Vitamin D 25 HydroxyOrdered By: Rafa Nicole on 02-25-2021 Vit D, 25-Hydroxy 56.4 ng/mL 30.0 - 100.0 ng/mL [employer] Phone: Comment on above: Reference Range: Vitamin D status Range Deficiency <20 ng/mL Mild Deficiency 20-30 ng/mL Sufficiency 30-100 ng/mL Toxicity >100 ng/mL [employer] Phone: Protime-INROrdered By: Crispin Platt on 12-29-2020 INR Coag (Bld) [Relative time] 3.8 {INR} [employer] Phone: [employer] Phone: Creatinine W/GFR Point of Ca reOrdered By: Ayde Matthews on 11-23-2020 Creatinine [Mass/Vol] 1.61 mg/dL High 0.51 - 1.19 mg/dL [employer] Phone: GFR Non- 43 mL/min Low >60 [employer] Phone: GFR/1.73 sq M.predicted MDRD (S/P/Bld) [Vol rate/Area] 53 mL/min/{1.73_m2} Low >60 [employer] Phone: GFR/1.73 sq M.predicted MDRD (S/P/Bld) [Vol rate/Area] [employer] Phone: Comment on above: Average GFR for 60-6 9 years old: 85 mL/min/1.73sq m Chronic Kidney Disease: <60 mL/min/1.73sq m Kidney failure: <15 mL/min/1.73sq m eGFR calculated using average adult body mass. Additional eGFR calculator available at: http://www.globalrph.com/multiple_crcl_2012.htm Interpretation and review of laboratory results Abnormal [employer] Phone: POC Glucose FingerstickOrder ed By: Ayde Matthews on 11-23-2020 Glucose [Mass/Vol] 116 mg/dL High 75 - 110 mg/dL [employer] Phone: Interpretation and review of laboratory results Abnormal [employer] Phone: POCT GlucoseOrdered By: Rafa Matthews on 11-23-2020 Glucose [Mass/Vol] 94 mg/dL 74 - 100 mg/dL [employer] Phone: POCT INROrdered By: Ayde Matthews on 11-23-2020 POC INR 1.1 [employer] Phone: Comment on above: Therapeutic Range: Moderate Anticoagulant Intensity: INR = 2.0-3.0 High Anticoagulant Intensity: INR = 2.5-3.5 PT Coag (PPP) [Time] 13.[address] Phone: POTASSIUM (POC)Ordered By: Armin Matthews on 11-23-2020 Potassium [Moles/Vol] 4.5 mmol/L 3.5 - 4.5 mmol/L [employer] Phone: Surgical Pathologyon 021 Surgical Pathology (NOTE) -- Diagnosis -- GALLBLADDER, CHOLECYSTECTOMY:- CHRONIC CHOLECYSTITIS.- CHOLELITHIASIS. Allan Hurst, Electronically Signed Out [facility]/11/24/2020 Clinical Information Pre-op Diagnosis: GALLSTONES Operative Findings: GALLBLADDER AND CONTENTS Operation Performed: LAPAROSCOPIC CHOLECYSTECTOMY Source of Specimen 1: GALLBLADDER AND CONTENTS Gross Description GREGG FOSTER, GALLBLADDER AND CONTENTS 9.2 x 4.3 x [...] examination performed. SURGICAL PATHOLOGY CONSULTATION Patient Name: GREGG FOSTER [facility] Rec: [id number] Path Number: [id number] [facility] ANATOMIC PATHOLOGY [address] [place] [id number] Normal [facility] Comment on above: Performed By: #### P PPVS #### Molecular Detection [address] [place] [address] [id number] Bottom Liner: Oh Jean MD Protime-INRon 11-17-2020 INR Coag (Bld) [Relative time] 2.9 {INR} [employer] Phone: EKG 12 Leadon 11-10-2020 Atrial Rate 69 BPM [employer] Phone: P [place] 51 degrees [employer] Phone: P-R Interval 200 ms [employer] Phone: Q-T Interval 448 ms [employer] Phone: QRS Duration 134 ms [employer] Phone: QTc Calculation (Bazett) 480 ms [employer] Phone: R [place] -41 degrees [employer] Phone: T [place] 113 degrees [employer] Phone: Ventricular Rate 69 BPM [employer] Phone: Andrés, Mhpn Incoming E kg Results From [employer] - 11/10/2020 2:08 PM EDT Sinus rhythm with frequent , and consecutive Premature ventricular complexes Left axis deviation Non-specific intra-ventricular conduction block T wave abnormality, consider lateral ischemia Abnormal ECG No previous ECGs available [employer] Phone: Sinus rhythm with frequent , and consecutive Premature ventricular complexes Left axis deviation Non-specific intra-ventricular conduction block T wave abnormality, consider lateral ischemia Abnormal ECG No previous ECGs available [employer] Phone: Basic Metabolic Panelon 04-0 Anion gap [Moles/Vol] 11 mmol/L 9 - 17 mmol/L [employer] Phone: Calcium [Mass/Vol] 9.9 mg/dL 8.6 - 10. 4 mg/dL [employer] Phone: Chloride [Moles/Vol] 102 mmol/L 98 - 10 7 mmol/L [employer] Phone: CO2 [Moles/Vol] 24 mmol/L 20 - 31 mmol/L [employer] Phone: Creatinine [Mass/Vol] 1.71 mg/dL High 0.70 - 1.20 mg/dL [employer] Phone: GFR 49 mL/min Low >[address] Phone: GFR Non- 41 mL/min Low >60 [employer] Phone: GFR/1.73 sq M.predicted MDRD (S/P/Bld) [Vol rate/Area] NOT REPORTED [employer] Phone: GFR/1.73 sq M.predicted MDRD (S/P/Bld) [Vol rate/Area] [employer] Phone: Comment on above: Average GFR for 60-6 9 years old: 85 mL/min/1.73sq m Chronic Kidney Disease: <60 mL/min/1.73sq m Kidney failure: <15 mL/min/1.73sq m eGFR calculated using average adult body mass. Additional eGFR calculator available at: http://www.HealthyOut.ShaveLogic/multiple_crcl_2012.htm Glucose [Mass/Vol] 133 mg/dL High 70 - 99 mg/dL [employer] Phone: Interpretation and review of laboratory results Abnormal [facility] Phone: Potassium [Moles/Vol] 4.8 mmol/L 3.7 - 5.3 mmol/L [facility] Phone: Sodium [Moles/Vol] 137 mmol/L 135 - 144 mmol/L [facility] Phone: Urea nitrogen (BldV) [Mass/Vol] 37 mg/dL High 8 - 23 mg/dL [facility] Phone: Urea nitrogen/Creatinine (Bld) [Mass ratio] NOT REPORTED [facility] Phone: Basic Metabolic Profon 11-09 (cont.) Normal [place] [facility] Comment on above: Result Comment: Aver age GFR for 60-69 years old: 85 mL/min/1.73sq m Chronic Kidney Disease: <60 mL/min/1.73sq m Kidney failure: <15 mL/min/1.73sq m eGFR calculated using average adult body mass. Additional eGFR calculator available at: http://www.HealthyOut.ShaveLogic/multiple_crcl_2011.htm Performed By: #### C BC, PT, BMP #### [facility] [employer] [address] [place] [address] [phone] Bottom Liner: Oh Jean MD Anion gap [Moles/Vol] 11 mmol/L Normal 9-17 [facility] Comment on above: Performed By: #### C BC, PT, BMP #### [facility] [address] [place], [place] [id number] Bottom Liner: Oh Jean MD Calcium [Mass/Vol] 9.9 mg/dL Normal 8.6-10.4 [facility] Comment on above: Performed By: #### C BC, PT, BMP #### [employer] [address] [place] [address] [phone] Bottom Liner: Oh Jean MD Chloride [Moles/Vol] 102 mmol/L Normal 98-107 [facility] Comment on above: Performed By: #### C BC, PT, BMP #### [facility] [address] [place] [address] [phone] Bottom Liner: Oh Jean MD CO2 [Moles/Vol] 24 mmol/L Normal 20-31 [facility] Comment on above: Performed By: #### C BC, PT, BMP #### [facility] [address] [place] [address] 13747 Bottom Liner: Oh Jean MD Creatinine [Mass/Vol] 1.71 mg/dL High 0.70-1.20 [facility] Comment on above: Performed By: #### C BC, PT, BMP #### [facility] [address] [place] [address] 24482 Bottom Liner: Oh Jean MD GFR, Amer 49 mL/min Low >60 [facility] Comment on above: Performed By: #### C BC, PT, BMP #### [facility] [address] [place] [address] [phone] Bottom Liner: Oh Jean MD GFR,non Amer 41 mL/min Low >60 [facility] Comment on above: Performed By: #### C BC, PT, BMP #### [facility] [address] [place] [address] 79315 Bottom Liner: Oh Jean MD Glucose [Mass/Vol] 133 mg/dL High 70-99 [facility] Comment on above: Performed By: #### C BC, PT, BMP #### [facility] [address] [place] [address] 77035 Bottom Liner: Oh Jean MD Potassium [Moles/Vol] 4.8 mmol/L Normal 3.7-5.3 [facility] Comment on above: Performed By: #### C BC, PT, BMP #### [facility] [address] [place] [address] Bottom Liner: Oh Jean MD Sodium [Moles/Vol] 137 mmol/L Normal 135-144 [facility] Comment on above: Performed By: #### C BC, PT, BMP #### [facility] [address] [place] [address] 39616 Bottom Liner: Oh Jean MD Urea nitrogen [Mass/Vol] 37 mg/dL High 8- [facility] Comment on above: Performed By: #### C BC, PT, BMP #### [facility] [address] [place] [address] 19574 Bottom Liner: Oh Jean MD BUN/CRE Ratio NOT REPORTED Normal 04-26 [facility] Comment on above: Performed By: #### C BC, PT, BMP #### [facility] [address] [place] [address] 05635 Bottom Liner: Oh Jean MD Staging: NOT REPORTED Normal [facility] Comment on above: Performed By: #### C BC, PT, BMP #### [facility] [address] [place] [address] 35138 Bottom Liner: Oh Jean MD CBCon 11-09-2020 Erythrocyte distribution width (RBC) [Ratio] 13.8 % Normal 11.8-14.4 [facility] Comment on above: Performed By: #### C BC, PT, BMP #### [facility] [address] [place] [address] [phone] Bottom Liner: Oh Jean MD Hematocrit (Bld) [Volume fraction] 44.6 % Normal 40.7-50.3 [facility] Comment on above: Performed By: #### C BC, PT, BMP #### [facility] [address] [place] [address] 74628 Bottom Liner: Oh eJan MD Hemoglobin (Bld) [Mass/Vol] 14.7 g/dL Normal 13.0-17.0 [facility] Comment on above: Performed By: #### C KWASI PT, BMP #### [facility] [address] [place] [address] 41251 Bottom Liner: Oh Jean MD MCH (RBC) [Entitic mass] 30.4 pg Normal 25.2-33.5 [facility] Comment on above: Performed By: #### C KWASI, PT, BMP #### [facility] [address] [place] [address] 57581 Bottom Liner: Oh Jean MD MCHC (RBC) [Mass/Vol] 33.0 g/dL Normal 28.4-34.8 [facility] Comment on above: Performed By: #### C KWASI PT, BMP #### [address] [address] Bottom Liner: Oh Jean MD MCV (RBC) [Entitic vol] 92.3 fL Normal 82.6-102.9 [facility] Comment on above: Performed By: #### C KWASI PT, BMP #### [address] [address] Bottom Liner: Oh Jean MD NRBC Automated 0.0 per 100 WBC Normal 0.0 [facility] Comment on above: Performed By: #### C KWASI PT, BMP #### [facility] [address] [place] [address] 92128 Bottom Liner: Oh Jean MD Platelet mean volume (Bld) [Entitic vol] 10.1 fL Normal 8.1-13.5 [facility] Comment on above: Performed By: #### C KWASI PT, BMP #### [facility] [address] [place] [address] 15536 Bottom Liner: Oh Jean MD Platelets (Bld) [#/Vol] 252 10*3/uL Normal 138-453 [facility] Comment on above: Performed By: #### C BC, PT, BMP #### [facility] [address] [place] [address] Bottom Liner: Oh Jean MD RBC (Bld) [#/Vol] 4.83 10*6/uL Normal 4.21-5.77 [facility] Comment on above: Performed By: #### C KWASI, PT, BMP #### [facility] [address] [place] [address] Bottom Liner: Oh Jean MD WBC (Bld) [#/Vol] 9.0 10*3/uL Normal 3.5-11.3 [facility] Comment on above: Performed By: #### C BC, PT, BMP #### [facility] [address] [place] [address] 64082 Bottom Liner: Oh Jean MD Hematocrit (Bld) [Volume fraction] 44.6 % 40.7 - 50.3 % [employer] Phone: Hemoglobin.gastrointe stinal spec 1 Ql (Stl) 14.7 g/dL 13.0 - 17.0 g/dL [employer] Phone: MCH (RBC) [Entitic mass] 30.4 pg 25.2 - 33.5 pg [employer] Phone: MCHC (RBC) [Mass/Vol] 33.0 g/dL 28.4 - 34.8 g/dL [employer] Phone: MCV (RBC) [Entitic vol] 92.3 fL 82.6 - 102.9 fL [employer] Phone: Platelet distribution width (Bld) [Ratio] 13.8 % 11.8 - 14.4 % [employer] Phone: Platelet mean volume (Bld) [Entitic vol] 10.1 fL 8.1 - 13.5 fL [employer] Phone: Platelets (Bld) [#/Vol] 252 10*3/uL [employer] Phone: RBC (Bld) [#/Vol] 4.83 10*6/uL 4.21 - 5.7 7 m/uL [employer] Phone: WBC (Bld) [#/Vol] 9.0 10*3/uL [employer] Phone: WBC (Bld) [#/Vol] 0.0 10*3/uL 0.0 per 10 0 WBC [employer] Phone: PTon 11-09-2020 INR Coag (PPP) [Relative time] 2.6 {INR} Normal [facility] Comment on above: Result Comment: Therapeutic Range: Moderate Anticoagulant Intensity: INR = 2.0-3.0 High Anticoagulant Intensity: INR = 2.5-3.5 Performed By: #### C BC, PT, BMP #### [facility] [employer] [address] [place] [address] [phone] Bottom Liner: Oh Jean MD PT Coag (PPP) [Time] 25.5 s High 9.1-12.3 [facility] Comment on above: Performed By: #### C BC, PT, BMP #### [facility] [address] [place], [place] [id number] Bottom Liner: Oh Jean MD Protime-INRon 11-09-2020 INR Coag (Bld) [Relative time] 2.6 {INR} [employer] Phone: Comment on above: Therapeutic Range: Moderate Anticoagulant Intensity: INR = 2.0-3.0 High Anticoagulant Intensity: INR = 2.5-3.5 Interpretation and review of laboratory results Abnormal [employer] Phone: PT Coag (PPP) [Time] 25.5 s High [facility] [employer] Phone: Consent for COVID Vaccineon 11-07-2020 SARS-CoV-2 (COVID-19) RNA NEFTALI+probe Ql (Unsp spec) [id number]#[id number]: 127 Normal [facility] US GALLBLADDER RUQon 021 1. Exam was [...] small amount of sludge within the gallbladder. [employer] Phone: EXAM: US GALLBLADDER RUQ HISTORY: Reason [...] was noted in the right upper quadrant. [employer] Phone: Andrés, pn Incoming Radiant Results From Nextly/bitFlyer - 11/02/2020 9:51 AM EDT EXAM: US [...] small amount of sludge within the gallbladder. [facility] Phone: Consent for COVID Vaccineon 10-17-2020 SARS-CoV-2 (COVID-19) RNA NEFTALI+probe Ql (Unsp spec) [id number]#[id number] :127 Normal [facility] Consent for Treatmenton 10-05 Consent for Treatment [id number]#1.00CD :127 [facility] Coding Summary.on 10-14-2020 Coding Summary. CODING DATE: [facility] STATUS: PAYOR: Medical [employer] DESCRIPTION 1492 [employer] - Level [...] Luciana Oliva Date Saved: 10/14/2020 02:04 pm [facility] CBC Auto Differentialon 08-07 Basophils (Bld) [#/Vol] 0.00 10*3/uL [facility] [place] Basophils/100 WBC (Bld) 1 % 0 - 2 % [place] Differential Type YES [place] Eosinophils (Bld) [#/Vol] 0.30 10*3/uL [place] Eosinophils/100 WBC (Bld) 3 % 0 - 5 % [place] Erythrocyte distribution width (RBC) [Ratio] 14.9 % 12.1 - 15.2 % [place] Hematocrit (Bld) [Volume fraction] 44.9 % 41 - 53 % [place] Hemoglobin (Bld) [Mass/Vol] 15.0 g/dL 13.5 - 17.5 g/dL [place] Interpretation and review of laboratory results Abnormal [place] Lymphocytes (Bld) [#/Vol] 1.70 10*3/uL [place] Lymphocytes/100 WBC (Bld) 19 % 13 - 44 % [place] MCH (RBC) [Entitic mass] 30.4 pg 26 - 34 pg [place] MCHC (RBC) [Mass/Vol] 33.4 g/dL 31 - 3 7 g/dL [place] MCV (RBC) [Entitic vol] 91.0 fL 80 - 100 fL [place] Monocytes (Bld) [#/Vol] 1.00 10*3/uL [place] Monocytes/100 WBC (Bld) 11 % High 5 - 9 % [place] Platelet mean volume (Bld) [Entitic vol] NOT REPORTED 6 - 12 fL [place] Platelets (Bld) [#/Vol] 237 10*3/uL [place] Platelets (Bld) [#/Vol] NOT REPORTED [place] RBC (Bld) [#/Vol] 4.94 10*6/uL 4.5 - 5.9 m/uL [place] RBC morphology finding Nom (Bld) NOT REPORTED [place] Segmented neutrophils/100 WBC (Bld) 66 % 39 - 75 % [place] Segs Absolute 6.00 [place] WBC (Bld) [#/Vol] 8.9 10*3/uL [place] WBC (Bld) [#/Vol] NOT REPORTED per 100 WBC [place] WBC Morphology NOT REPORTED [place] Comprehensive Metabolic Pane yonis 08-25-2020 Albumin [Mass/Vol] 4.2 g/dL 3.5 - 5.2 g/dL [place] Albumin/Globulin [Mass ratio] NOT REPORTED [place] ALP [Catalytic activity/Vol] 64 U/L 40 - 129 U/L [place] ALT [Catalytic activity/Vol] 16 U/L 5 - 41 U/L [place] Anion gap [Moles/Vol] 10 mmol/L 9 - 17 mmol/L [place] AST [Catalytic activity/Vol] 21 U/L <40 [place] Bilirubin Ql (U) 0.92 mg/dL 0.3 - 1.2 mg/dL [place] Bun/Cre Ratio 22 High [place] Calcium [Mass/Vol] 10.7 mg/dL High 8.6 - 10. 4 mg/dL [place] Chloride [Moles/Vol] 102 mmol/L 98 - 10 7 mmol/L [place] CO2 [Moles/Vol] 27 mmol/L 20 - 31 mmol/L [place] Creatinine [Mass/Vol] 1.78 mg/dL High 0.7 - 1.2 mg/dL [place] GFR 47 mL/min Low >60 [place] GFR Non- 39 mL/min Low >60 [place] GFR/1.73 sq M predicted among non-blacks MDRD (S/P/Bld) [Vol rate/Area] [place] Comment on above: Average GFR for 60-6 9 years old: 85 mL/min/1.73sq m Chronic Kidney Disease: <60 mL/min/1.73sq m Kidney failure: <15 mL/min/1.73sq m eGFR calculated using average adult body mass. Additional eGFR calculator available at: http://www.FansUnite/multiple_crcl_2012.htm GFR/1.73 sq M predicted among non-blacks MDRD (S/P/Bld) [Vol rate/Area] NOT REPORTED [place] Glucose [Mass/Vol] 89 mg/dL 70 - 99 mg/dL [place] Interpretation and review of laboratory results Abnormal [place] Potassium [Moles/Vol] 5.2 mmol/L 3.7 - 5.3 mmol/L [place] Protein [Mass/Vol] 7.5 g/dL 6.4 - 8.3 g/dL [place] Sodium [Moles/Vol] 139 mmol/L 135 - 144 mmol/L [place] Urea nitrogen [Mass/Vol] 39 mg/dL High 8 - 23 mg/dL [place] Lipid Panelon 08-25-2020 Cholesterol [Mass/Vol] 126 mg/dL <200 [place] Comment on above: Cholesterol Guidelines: <200 Desirable 200-240 Borderline >240 Undesirable Cholesterol in HDL [Mass/Vol] 34 mg/dL Low >40 [place] Comment on above: HDL Guidelines: <40 Undesirable 40-59 Borderline >59 Desirable Cholesterol in LDL [Mass/Vol] 59 mg/dL 0 - 130 mg/dL [place] Comment on above: LDL Guidelines: <100 Desirable 100-129 Near to/above Desirable 130-159 Borderline >159 Undesirable Direct (measured) LDL and calculated LDL are not interchangeable tests. Cholesterol in VLDL [Mass/Vol] NOT REPORTED High 1 - 30 mg/dL [place] Cholesterol.total/Cho lesterol in HDL [Mass ratio] 3.7 {ratio} <5 [place] Interpretation and review of laboratory results Abnormal [place] Triglyceride [Mass/Vol] 166 mg/dL High <150 [place] Comment on above: Triglyceride Guidelines: <150 Desirable 150-199 Borderline 200-499 High >499 Very high Based on AHA Guidelines for fasting triglyceride, May 2012. Magnesiumon 08-25-2020 Magnesium [Mass/Vol] 2.2 mg/dL 1.6 - 2 .6 mg/dL [facility] Otheron 08-25-2020 Immature granulocytes (Bld) [#/Vol] NOT REPORTED [facility] Patient Fasting?on 1 Patient Fasting? yes Rosey Larry [place] TSH with Reflexon 08-25-2020 TSH Qn 2.54 m[IU]/L [place] Vitamin D 25 Hydroxyon 08-25 Vit D, 25-Hydroxy 52.3 ng/mL 30 - 100 ng/mL [place], [place] Comment on above: Reference Range: Vitamin D status Range Deficiency <20 ng/mL Mild Deficiency 20-30 ng/mL Sufficiency 30-100 ng/mL Toxicity >100 ng/mL XR CHEST (2 VW)on 08-25-2020 Pacemaker defibrilla tor with no acute change compared to 02/26/2019, 10/19/2017. [place] EXAM: XR CHEST (2 VW ) HISTORY: Reason for exam:->htn 64-year-old male COMPARISON: 02/26/2019 chest, 10/19/2017. TECHNIQUE: 2 views chest FINDINGS: Single lead pacemaker defibrillator with the tip in the right ventricle unchanged. Heart size upper normal, stable. Lungs clear. [place], [place] Andrés, Mhpn Incoming Radiant Results From Nextly/bitFlyer - 08/25/2020 10:17 AM EST EXAM: XR CHEST (2 VW) HISTORY: Reason for exam:->htn 64-year-old male COMPARISON: 02/26/2019 chest, 10/19/2017. TECHNIQUE: 2 views chest FINDINGS: Single lead pacemaker defibrillator with the tip in the right ventricle unchanged. Heart size upper normal, stable. Lungs clear. IMPRESSION: Pacemaker defibrillator with no acute change compared to 02/26/2019, 10/19/2017. [place] Comprehensive Metabolic Pane yonis 08-14-2020 Albumin [Mass/Vol] 4.7 g/dL 3.5 - 5.2 g/dL [place] Albumin/Globulin [Mass ratio] NOT REPORTED [place] ALP [Catalytic activity/Vol] 61 U/L 40 - 129 U/L [place] ALT [Catalytic activity/Vol] 20 U/L 5 - 41 U/L [place] Anion gap [Moles/Vol] 11 mmol/L 9 - 17 mmol/L [place] AST [Catalytic activity/Vol] 20 U/L <40 [place] Bilirubin Ql (U) 1.55 mg/dL High 0.3 - 1.2 mg/dL [place] Bun/Cre Ratio 26 High [place], [place] Calcium [Mass/Vol] 9.7 mg/dL 8.6 - 10. 4 mg/dL [place] Chloride [Moles/Vol] 102 mmol/L 98 - 10 7 mmol/L [place] CO2 [Moles/Vol] 25 mmol/L 20 - 31 mmol/L [place] Creatinine [Mass/Vol] 1.7 mg/dL High 0.7 - 1.2 mg/dL [place] GFR 50 mL/min Low >60 [place] GFR Non- 41 mL/min Low >60 [place] GFR/1.73 sq M predicted among non-blacks MDRD (S/P/Bld) [Vol rate/Area] [place], [place] Comment on above: Average GFR for 60-6 9 years old: 85 mL/min/1.73sq m Chronic Kidney Disease: <60 mL/min/1.73sq m Kidney failure: <15 mL/min/1.73sq m eGFR calculated using average adult body mass. Additional eGFR calculator available at: http://www.HealthyOut.ShaveLogic/multiple_crcl_2012.htm GFR/1.73 sq M predicted among non-blacks MDRD (S/P/Bld) [Vol rate/Area] NOT REPORTED [place], [place] Glucose [Mass/Vol] 97 mg/dL 70 - 99 mg/dL [place] Interpretation and review of laboratory results Abnormal [place] Potassium [Moles/Vol] 4.9 mmol/L 3.7 - 5.3 mmol/L [place] Protein [Mass/Vol] 8.1 g/dL 6.4 - 8.3 g/dL [place] Sodium [Moles/Vol] 138 mmol/L 135 - 144 mmol/L [place] Urea nitrogen [Mass/Vol] 45 mg/dL High 8 - 23 mg/dL [place] Hemoglobin A1Con 08-14-2020 Glucose [Mass/Vol] 151 mg/dL [place] Comment on above: The ADA and AACC rec ommend providing the estimated average glucose result to permit better patient understanding of their HBA1c result. HbA1c (Bld) [Mass fraction] 6.9 % High 4 - 6 % [place] Interpretation and review of laboratory results Abnormal [place] Protime-INRon 08-14-2020 INR Coag (PPP) [Relative time] 2.8 {INR} [place] Comment on above: Non-therapeutic Range: INR = 0.9-1.2 Therapeutic Range: Moderate Anticoagulant Intensity: INR = 2.0-3.0 High Anticoagulant Intensity: INR = 2.5-3.5 Interpretation and review of laboratory results Abnormal [place], [place] PT Coag (PPP) [Time] 28.6 s High [place] Protime-INRon 05-14-2020 INR Coag (PPP) [Relative time] 2.7 {INR} [place] Protime-INRon 04-02-2020 INR Coag (PPP) [Relative time] 2.8 {INR} [place] CBC Auto Differentialon 02-05 Basophils (Bld) [#/Vol] 0.10 10*3/uL [place] Basophils/100 WBC (Bld) 1 % 0 - 2 % [place] Differential Type YES [place] Eosinophils (Bld) [#/Vol] 0.30 10*3/uL [place] Eosinophils/100 WBC (Bld) 3 % 0 - 5 % [place] Erythrocyte distribution width (RBC) [Ratio] 14.8 % 12.1 - 15.2 % [place] Hematocrit (Bld) [Volume fraction] 44.7 % 41 - 53 % [place] Hemoglobin (Bld) [Mass/Vol] 15.2 g/dL 13.5 - 17.5 g/dL [place] Interpretation and review of laboratory results Abnormal [place] Lymphocytes (Bld) [#/Vol] 1.70 10*3/uL [place] Lymphocytes/100 WBC (Bld) 17 % 13 - 44 % [place] MCH (RBC) [Entitic mass] 31.4 pg 26 - 34 pg [place] MCHC (RBC) [Mass/Vol] 34.0 g/dL 31 - 3 7 g/dL [place] MCV (RBC) [Entitic vol] 92.1 fL 80 - 100 fL [place] Monocytes (Bld) [#/Vol] 1.00 10*3/uL [place], [place] Monocytes/100 WBC (Bld) 10 % High 5 - 9 % [place] Platelet mean volume (Bld) [Entitic vol] NOT REPORTED 6 - 12 fL [place] Platelets (Bld) [#/Vol] 208 10*3/uL [place] Platelets (Bld) [#/Vol] NOT REPORTED [place] RBC (Bld) [#/Vol] 4.85 10*6/uL 4.5 - 5.9 m/uL [place] RBC morphology finding Nom (Bld) NOT REPORTED [place] Segmented neutrophils/100 WBC (Bld) 69 % 39 - 75 % [place] Segs Absolute 7.10 High [place] WBC (Bld) [#/Vol] NOT REPORTED per 100 WBC [place] WBC (Bld) [#/Vol] 10.1 10*3/uL [place] WBC Morphology NOT REPORTED [place] Comprehensive Metabolic Pane yonis 02-26-2020 Albumin [Mass/Vol] 4.3 g/dL 3.5 - 5.2 g/dL [place] Albumin/Globulin [Mass ratio] NOT REPORTED [place] ALP [Catalytic activity/Vol] 55 U/L 40 - 129 U/L [place] ALT [Catalytic activity/Vol] 21 U/L 5 - 41 U/L [place] Anion gap [Moles/Vol] 11 mmol/L 9 - 17 mmol/L [place] AST [Catalytic activity/Vol] 23 U/L <40 [place] Bilirubin Ql (U) 1.35 mg/dL High 0.3 - 1.2 mg/dL [place] Bun/Cre Ratio 19 [place], [place] Calcium [Mass/Vol] 10.5 mg/dL High 8.6 - 10. 4 mg/dL [place] Chloride [Moles/Vol] 101 mmol/L 98 - 10 7 mmol/L [place] CO2 [Moles/Vol] 26 mmol/L 20 - 31 mmol/L [place] Creatinine [Mass/Vol] 1.67 mg/dL High 0.7 - 1.2 mg/dL [place] GFR 51 mL/min Low >60 [place] GFR Non- 42 mL/min Low >60 [place] GFR/1.73 sq M predicted among non-blacks MDRD (S/P/Bld) [Vol rate/Area] [place], [place] Comment on above: Average GFR for 60-6 9 years old: 85 mL/min/1.73sq m Chronic Kidney Disease: <60 mL/min/1.73sq m Kidney failure: <15 mL/min/1.73sq m eGFR calculated using average adult body mass. Additional eGFR calculator available at: http://www.HealthyOut.ShaveLogic/multiple_crcl_2012.htm GFR/1.73 sq M predicted among non-blacks MDRD (S/P/Bld) [Vol rate/Area] NOT REPORTED [place] Glucose [Mass/Vol] 91 mg/dL 70 - 99 mg/dL [place] Interpretation and review of laboratory results Abnormal [place] Potassium [Moles/Vol] 5.0 mmol/L 3.7 - 5.3 mmol/L [place] Protein [Mass/Vol] 7.8 g/dL 6.4 - 8.3 g/dL [place] Sodium [Moles/Vol] 138 mmol/L 135 - 144 mmol/L [place] Urea nitrogen [Mass/Vol] 31 mg/dL High 8 - 23 mg/dL [place] Lipid Panelon 02-26-2020 Cholesterol [Mass/Vol] 131 mg/dL <200 [place], [place] Comment on above: Cholesterol Guidelines: <200 Desirable 200-240 Borderline >240 Undesirable Cholesterol in HDL [Mass/Vol] 33 mg/dL Low >40 [place] Comment on above: HDL Guidelines: <40 Undesirable 40-59 Borderline >59 Desirable Cholesterol in LDL [Mass/Vol] 62 mg/dL 0 - 130 mg/dL [place] Comment on above: LDL Guidelines: <100 Desirable 100-129 Near to/above Desirable 130-159 Borderline >159 Undesirable Direct (measured) LDL and calculated LDL are not interchangeable tests. Cholesterol in VLDL [Mass/Vol] NOT REPORTED High 1 - 30 mg/dL [place] Cholesterol.total/Cho lesterol in HDL [Mass ratio] 4 {ratio} <5 [place] Interpretation and review of laboratory results Abnormal [place] Triglyceride [Mass/Vol] 182 mg/dL High <150 [place], [place] Comment on above: Triglyceride Guidelines: <150 Desirable 150-199 Borderline 200-499 High >499 Very high Based on AHA Guidelines for fasting triglyceride, May 2012. Magnesiumon 02-26-2020 Magnesium [Mass/Vol] 2.1 mg/dL 1.6 - 2 .6 mg/dL [place] Otheron 02-26-2020 Immature granulocytes (Bld) [#/Vol] NOT REPORTED [place] Patient Fasting?on 0 Patient Fasting? YES [place] TSH with Reflexon 02-26-2020 TSH Qn 2.56 m[IU]/L [place] Vitamin D 25 Hydroxyon 02-25 Vit D, 25-Hydroxy 54.9 ng/mL 30 - 100 ng/mL [place] Comment on above: Reference Range: Vitamin D status Range Deficiency <20 ng/mL Mild Deficiency 20-30 ng/mL Sufficiency 30-100 ng/mL Toxicity >100 ng/mL Protime-INRon 02-20-2020 INR Coag (PPP) [Relative time] 2.8 {INR} [place] Comprehensive Metabolic Pane yonis 01-21-2020 Albumin [Mass/Vol] 4.2 g/dL 3.5 - 5.2 g/dL [place] Albumin/Globulin [Mass ratio] NOT REPORTED [place] ALP [Catalytic activity/Vol] 58 U/L 40 - 129 U/L [place] ALT [Catalytic activity/Vol] 22 U/L 5 - 41 U/L [place] Anion gap [Moles/Vol] 10 mmol/L 9 - 17 mmol/L [place] AST [Catalytic activity/Vol] 21 U/L <40 [place] Bilirubin Ql (U) 0.80 mg/dL 0.3 - 1.2 mg/dL [place] Bun/Cre Ratio 22 High [place] Calcium [Mass/Vol] 10.1 mg/dL 8.6 - 10. 4 mg/dL [place] Chloride [Moles/Vol] 104 mmol/L 98 - 10 7 mmol/L [place] CO2 [Moles/Vol] 26 mmol/L 20 - 31 mmol/L [place] Creatinine [Mass/Vol] 1.85 mg/dL High 0.7 - 1.2 mg/dL [place] GFR 45 mL/min Low >60 [place] GFR Non- 37 mL/min Low >60 [place] GFR/1.73 sq M predicted among non-blacks MDRD (S/P/Bld) [Vol rate/Area] [place] Comment on above: Average GFR for 60-6 9 years old: 85 mL/min/1.73sq m Chronic Kidney Disease: <60 mL/min/1.73sq m Kidney failure: <15 mL/min/1.73sq m eGFR calculated using average adult body mass. Additional eGFR calculator available at: http://www.FansUnite/multiple_crcl_2012.htm GFR/1.73 sq M predicted among non-blacks MDRD (S/P/Bld) [Vol rate/Area] NOT REPORTED [place] Glucose [Mass/Vol] 79 mg/dL 70 - 99 mg/dL [place] Interpretation and review of laboratory results Abnormal [place] Potassium [Moles/Vol] 4.7 mmol/L 3.7 - 5.3 mmol/L [place] Protein [Mass/Vol] 7.5 g/dL 6.4 - 8.3 g/dL [place] Sodium [Moles/Vol] 140 mmol/L 135 - 144 mmol/L [place] Urea nitrogen [Mass/Vol] 40 mg/dL High 8 - 23 mg/dL [place] Hemoglobin A1Con 01-21-2020 Glucose [Mass/Vol] 140 mg/dL [place] Comment on above: The ADA and AACC rec ommend providing the estimated average glucose result to permit better patient understanding of their HBA1c result. HbA1c (Bld) [Mass fraction] 6.5 % High 4 - 6 % [place] Interpretation and review of laboratory results Abnormal [place] Lipid Panelon 01-21-2020 Cholesterol [Mass/Vol] 127 mg/dL <200 [place] Comment on above: Cholesterol Guidelines: <200 Desirable 200-240 Borderline >240 Undesirable Cholesterol in HDL [Mass/Vol] 30 mg/dL Low >40 [place] Comment on above: HDL Guidelines: <40 Undesirable 40-59 Borderline >59 Desirable Cholesterol in LDL [Mass/Vol] 57 mg/dL 0 - 130 mg/dL [place] Comment on above: LDL Guidelines: <100 Desirable 100-129 Near to/above Desirable 130-159 Borderline >159 Undesirable Direct (measured) LDL and calculated LDL are not interchangeable tests. Cholesterol in VLDL [Mass/Vol] NOT REPORTED High 1 - 30 mg/dL [place] Cholesterol.total/Cho lesterol in HDL [Mass ratio] 4.2 {ratio} <5 [place] Interpretation and review of laboratory results Abnormal [place] Triglyceride [Mass/Vol] 201 mg/dL High <150 [place] Comment on above: Triglyceride Guidelines: <150 Desirable 150-199 Borderline 200-499 High >499 Very high Based on AHA Guidelines for fasting triglyceride, May 2012. Patient Fasting?on 0 Patient Fasting? yes [place] Protime-INRon 01-09-2020 INR Coag (PPP) [Relative time] 2.6 {INR} [place] Protime-INRon 10-17-2019 INR Coag (PPP) [Relative time] 2.6 {INR} [place] Basic Metabolic Panelon Anion gap [Moles/Vol] 12 mmol/L 9 - 17 mmol/L [employer] Phone: Bun/Cre Ratio 23 [employer] Work Phone: Calcium [Mass/Vol] 10.6 mg/dL High 8.6 - 10. 4 mg/dL [employer] Phone: Chloride [Moles/Vol] 104 mmol/L 98 - 10 7 mmol/L [employer] Phone: CO2 [Moles/Vol] 24 mmol/L 20 - 31 mmol/L [employer] Phone: Creatinine [Mass/Vol] 1.65 mg/dL High 0.7 - 1.2 mg/dL [employer] Phone: GFR 51 mL/min Low >[address] Phone: GFR Non- 42 mL/min Low >60 [employer] Phone: GFR/1.73 sq M predicted among non-blacks MDRD (S/P/Bld) [Vol rate/Area] NOT REPORTED [employer] Phone: GFR/1.73 sq M predicted among non-blacks MDRD (S/P/Bld) [Vol rate/Area] [employer] Phone: Comment on above: Average GFR for 60-6 9 years old: 85 mL/min/1.73sq m Chronic Kidney Disease: <60 mL/min/1.73sq m Kidney failure: <15 mL/min/1.73sq m eGFR calculated using average adult body mass. Additional eGFR calculator available at: http://www.FansUnite/multiple_crcl_2012.htm Glucose [Mass/Vol] 101 mg/dL High 70 - 99 mg/dL [employer] Phone: Interpretation and review of laboratory results Abnormal [employer] Phone: Potassium [Moles/Vol] 5.0 mmol/L 3.7 - 5.3 mmol/L [employer] Phone: Sodium [Moles/Vol] 140 mmol/L 135 - 144 mmol/L [employer] Phone: Urea nitrogen [Mass/Vol] 38 mg/dL High 8 - 23 mg/dL [employer] Phone: Basic Metabolic PanelOrdered By: Rafa Nicole on 09-02-2019 Anion gap [Moles/Vol] 14 mmol/L 9 - 17 mmol/L [employer] Phone: Bun/Cre Ratio 27 [employer] Work Phone: Calcium [Mass/Vol] 11.0 mg/dL High 8.6 - 10. 4 mg/dL [employer] Phone: Chloride [Moles/Vol] 100 mmol/L 98 - 10 7 mmol/L [employer] Phone: CO2 [Moles/Vol] 24 mmol/L 20 - 31 mmol/L [employer] Phone: Creatinine [Mass/Vol] 1.9 mg/dL High 0.7 - 1.2 mg/dL [employer] Phone: GFR 44 mL/min Low >[address] Phone: GFR Comment [employer] Phone: Comment on above: Average GFR for 60-6 9 years old: 85 mL/min/1.73sq m Chronic Kidney Disease: <60 mL/min/1.73sq m Kidney failure: <15 mL/min/1.73sq m eGFR calculated using average adult body mass. Additional eGFR calculator available at: http://www.FansUnite/multiple_crcl_2012.htm GFR Non- 36 mL/min Low >60 [employer] Phone: GFR Staging NOT REPORTED [employer] Phone: Glucose [Mass/Vol] 117 mg/dL High 70 - 99 mg/dL [employer] Phone: Interpretation and review of laboratory results Abnormal [employer] Phone: Potassium [Moles/Vol] 5.5 mmol/L High 3.7 - 5.3 mmol/L [employer] Phone: Sodium [Moles/Vol] 138 mmol/L 135 - 144 mmol/L [employer] Phone: Urea nitrogen [Mass/Vol] 51 mg/dL High 8 - 23 mg/dL [employer] Phone: Protime-INROrdered By: Crispin patel Provider on 09-02-2019 INR Coag (PPP) [Relative time] 2.5 {INR} [employer] Phone: NM Cardiac Stress Test Nucle ar ImagingOrdered By: Rafa Nicole on 08-19-2019 Radiology exam is complete. No Radiologist dictation. Please follow up with ordering provider. [employer] Phone: Basic Metabolic PanelOrdered By: Eloina Pat on 08-14-2019 Anion gap [Moles/Vol] 13 mmol/L 9 - 17 mmol/L [employer] Phone: Bun/Cre Ratio 20 [employer] Work Phone: Calcium [Mass/Vol] 10.4 mg/dL 8.6 - 10. 4 mg/dL [employer] Phone: Chloride [Moles/Vol] 103 mmol/L 98 - 10 7 mmol/L [employer] Phone: CO2 [Moles/Vol] 26 mmol/L 20 - 31 mmol/L [employer] Phone: Creatinine [Mass/Vol] 1.69 mg/dL High 0.7 - 1.2 mg/dL [employer] Work Phone: GFR 50 mL/min Low >[address] Phone: GFR Comment [employer] Phone: Comment on above: Average GFR for 60-6 9 years old: 85 mL/min/1.73sq m Chronic Kidney Disease: <60 mL/min/1.73sq m Kidney failure: <15 mL/min/1.73sq m eGFR calculated using average adult body mass. Additional eGFR calculator available at: http://www.FansUnite/multiple_crcl_2012.htm GFR Non- 41 mL/min Low >60 [employer] Phone: GFR Staging NOT REPORTED [employer] Work Phone: Glucose [Mass/Vol] 86 mg/dL 70 - 99 mg/dL [employer] Work Phone: Potassium [Moles/Vol] 4.2 mmol/L 3.7 - 5.3 mmol/L [employer] Phone: Sodium [Moles/Vol] 142 mmol/L 135 - 144 mmol/L [employer] Work Phone: Urea nitrogen [Mass/Vol] 34 mg/dL High 8 - 23 mg/dL [employer] Phone: CBC WITH AUTO DIFFERENTIALOr dered By: Eloina Pat on 08-14-2019 [employer] # 0.20 [facility] Work Phone: Absolute Immature Granulocyte NOT REPORTED [facility] Work Phone: Absolute Lymph # 1.40 [employer] [facility] Work Phone: Absolute [place] # 0.80 [facility] Work Phone: Basophils (Bld) [#/Vol] 0.00 10*3/uL [employer] Work Phone: Basophils/100 WBC (Bld) 0 % 0 - 2 % [facility] Work Phone: Differential Type YES [facility] Hospital[facility] Work Phone: Eosinophils/100 WBC (Bld) 2 % 0 - 5 % [employer] Work Phone: Erythrocyte distribution width (RBC) [Ratio] 15.0 % 12.1 - 15.2 % [employer] Work Phone: Hematocrit (Bld) [Volume fraction] 44.2 % 41 - 53 % [employer] Work Phone: Hemoglobin (Bld) [Mass/Vol] 14.4 g/dL 13.5 - 17.5 g/dL [employer] Work Phone: Immature Granulocytes NOT REPORTED 0 % [facility] Work Phone: Lymphocytes/100 WBC (Bld) 15 % 13 - 44 % [employer] Work Phone: MCH (RBC) [Entitic mass] 29.9 pg 26 - 34 pg [employer] Work Phone: MCHC (RBC) [Mass/Vol] 32.7 g/dL 31 - 3 7 g/dL [employer] Phone: MCV (RBC) [Entitic vol] 91.6 fL 80 - 100 fL [employer] Work Phone: Monocytes/100 WBC (Bld) 9 % 5 - 9 % [employer] Work Phone: MPV NOT REPORTED 6 - 12 fL [employer] Work Phone: NRBC Automated NOT REPORTED per 100 WBC [facility] HospitalL[facility] e[facility] Work Phone: Platelet Estimate NOT REPORTED [facility] Work Phone: Platelets (Bld) [#/Vol] 248 10*3/uL [employer] Work Phone: RBC (Bld) [#/Vol] 4.82 10*6/uL 4.5 - 5.9 m/uL [employer] Work Phone: RBC morphology finding Nom (Bld) NOT REPORTED [facility] HospitalFresh[facility] Phone: Segmented neutrophils/100 WBC (Bld) 74 % 39 - 75 % [employer] Work Phone: Segs Absolute 6.40 [facility] HospitalSm[facility] Work Phone: WBC (Bld) [#/Vol] 8.8 10*3/uL [employer] Work Phone: WBC Morphology NOT REPORTED [facility] HospitalSm[facility] Work Phone: Hepatic Function PanelOrdere d By: Eloina Pat on 08-14-2019 Albumin [Mass/Vol] 4.4 g/dL 3.5 - 5.2 g/dL [employer] Phone: Albumin/Globulin Ratio NOT REPORTED [facility] Work Phone: ALP [Catalytic activity/Vol] 66 U/L 40 - 129 U/L [employer] Work Phone: ALT [Catalytic activity/Vol] 24 U/L 5 - 41 U/L [employer] Phone: AST [Catalytic activity/Vol] 25 U/L <40 [employer] Phone: Bilirubin [Mass/Vol] 1.92 mg/dL High 0.3 - 1 .2 mg/dL [employer] Work Phone: Bilirubin, Indirect 1.6 mg/dL High 0 - 1 mg/dL [address] Phone: Bilirubin.indirect [Mass/Vol] 0.32 mg/dL High <0.31 [employer] Phone: Globulin NOT REPORTED 1.5 - 3.8 g/dL [employer] Phone: Protein [Mass/Vol] 7.7 g/dL 6.4 - 8.3 g/dL [employer] Phone: No Panel InformationOrdered By: Grapeword on 08-14-2019 Interpretation and review of laboratory results Abnormal [employer] Phone: Basic Metabolic PanelOrdered By: Grapeword on 08-12-2019 Anion gap [Moles/Vol] 13 mmol/L 9 - 17 mmol/L [employer] Phone: Bun/Cre Ratio 19 [employer] Work Phone: Calcium [Mass/Vol] 10.5 mg/dL High 8.6 - 10. 4 mg/dL [employer] Phone: Chloride [Moles/Vol] 103 mmol/L 98 - 10 7 mmol/L [employer] Phone: CO2 [Moles/Vol] 24 mmol/L 20 - 31 mmol/L [employer] Phone: Creatinine [Mass/Vol] 1.68 mg/dL High 0.7 - 1.2 mg/dL [employer] Phone: GFR 51 mL/min Low >[address] Phone: GFR Comment [employer] Phone: Comment on above: Average GFR for 60-6 9 years old: 85 mL/min/1.73sq m Chronic Kidney Disease: <60 mL/min/1.73sq m Kidney failure: <15 mL/min/1.73sq m eGFR calculated using average adult body mass. Additional eGFR calculator available at: http://www.FansUnite/multiple_crcl_2012.htm GFR Non- 42 mL/min Low >60 [employer] Work Phone: GFR Staging NOT REPORTED [facility] HospitalMiNOWirelessis[facility] Work Phone: Glucose [Mass/Vol] 92 mg/dL 70 - 99 mg/dL [facility] HospitalW[facility] Work Phone: Potassium [Moles/Vol] 4.7 mmol/L 3.7 - 5.3 mmol/L [employer] Work Phone: Sodium [Moles/Vol] 140 mmol/L 135 - 144 mmol/L [employer] Work Phone: Urea nitrogen [Mass/Vol] 32 mg/dL High 8 - 23 mg/dL [employer] Phone: Brain Natriuretic PeptideOrd ered By: Grapeword on 08-12-2019 BNP Interpretation Pro-BNP Reference Range: [employer] Work Phone: Comment on above: Rule Out: <300 [place] Zone: Age <50 300-450 Age 50-75 300-900 Age >75 300-1800 Usually represents mild to moderate HF but other cardiopulmonary causes cannot be ruled out. Rule In: Age <50 >450 Age 50-75 >900 Age >75 >1800 Natriuretic peptide B (Bld) [Mass/Vol] 3728 pg/mL High <300 [employer] Work Phone: Comment on above: Pro-BNP results william ot be compared to BNP results. CBC Auto DifferentialOrdered By: Grapeword on 08-12-2019 [employer] # 0.10 [employer] Work Phone: Absolute Immature Granulocyte NOT REPORTED [facility] Work Phone: Absolute Lymph # 1.30 [facility] Work Phone: Absolute [place] # 0.70 [employer] [facility] Work Phone: Basophils (Bld) [#/Vol] 0.00 10*3/uL [employer] Phone: Basophils/100 WBC (Bld) 0 % 0 - 2 % [employer] Phone: Differential Type YES [employer] Phone: Eosinophils/100 WBC (Bld) 2 % 0 - 5 % [employer] Phone: Erythrocyte distribution width (RBC) [Ratio] 15.1 % 12.1 - 15.2 % [employer] Phone: Hematocrit (Bld) [Volume fraction] 43.0 % 41 - 53 % [employer] Phone: Hemoglobin (Bld) [Mass/Vol] 14.1 g/dL 13.5 - 17.5 g/dL [employer] Phone: Immature Granulocytes NOT REPORTED 0 % M [employer] Work Phone: Interpretation and review of laboratory results Abnormal [employer] Phone: Lymphocytes/100 WBC (Bld) 15 % 13 - 44 % [employer] Phone: MCH (RBC) [Entitic mass] 29.9 pg 26 - 34 pg [employer] Phone: MCHC (RBC) [Mass/Vol] 32.8 g/dL 31 - 3 7 g/dL [employer] Phone: MCV (RBC) [Entitic vol] 90.9 fL 80 - 100 fL [employer] Phone: Monocytes/100 WBC (Bld) 8 % 5 - 9 % [employer] Phone: MPV NOT REPORTED 6 - 12 fL [employer] Phone: NRBC Automated NOT REPORTED per 100 WBC [employer] Work Phone: Platelet Estimate NOT REPORTED [employer] Phone: Platelets (Bld) [#/Vol] 224 10*3/uL [employer] Work Phone: RBC (Bld) [#/Vol] 4.73 10*6/uL 4.5 - 5.9 m/uL [employer] Work Phone: RBC morphology finding Nom (Bld) NOT REPORTED [employer] Work Phone: Segmented neutrophils/100 WBC (Bld) 75 % 39 - 75 % [employer] Work Phone: Segs Absolute 6.80 [employer] Work Phone: WBC (Bld) [#/Vol] 8.9 10*3/uL [employer] Work Phone: WBC Morphology NOT REPORTED [employer] Work Phone: CT ABDOMEN PELVIS W IV CONTR ASTOrdered By: Grapeword on 08-12-2019 1. Gallstones but no CT evidence for cholecystitis. 2. No other acute inflammatory process in the abdomen or pelvis. 3. Small pleural effusions and passive congestion in the liver suggesting volume overload. [employer] Work Phone: EXAMINATION: CT ABDO MEN PELVIS [...] adenopathy in the pelvic or inguinal regions. [employer] Phone: Andrés, Mhpn Incoming Radiant Results From [employer]Flyer - 08/12/2019 2:28 PM EST EXAMINATION: CT [...] congestion in the liver suggesting volume overload. [employer] Phone: D-Dimer, QuantitativeOrdered By: Eloina Pat on 08-12-2019 D-Dimer, Quant <0.19 [employer] Phone: Comment on above: Elevated levels of [...] of 98%). Hepatic Function PanelOrdere d By: Eloina Meaditrov on 08-12-2019 Albumin [Mass/Vol] 4.7 g/dL 3.5 - 5.2 g/dL [employer] Phone: Albumin/Globulin Ratio NOT REPORTED [employer] Phone: ALP [Catalytic activity/Vol] 68 U/L 40 - 129 U/L [employer] Phone: ALT [Catalytic activity/Vol] 26 U/L 5 - 41 U/L [employer] Phone: AST [Catalytic activity/Vol] 35 U/L <40 [employer] Phone: Bilirubin [Mass/Vol] 2.00 mg/dL High 0.3 - 1 .2 mg/dL [employer] Phone: Bilirubin, Indirect 1.68 mg/dL High 0 - 1 mg/dL [address] Phone: Bilirubin.indirect [Mass/Vol] 0.32 mg/dL High <0.31 [employer] Phone: Globulin NOT REPORTED 1.5 - 3.8 g/dL [employer] Phone: Interpretation and review of laboratory results Abnormal [employer] Phone: Protein [Mass/Vol] 7.9 g/dL 6.4 - 8.3 g/dL [employer] Phone: LipaseOrdered By: Eloina Myles on 08-12-2019 Lipase [Catalytic activity/Vol] 15 U/L 13 - 60 U/L [employer] Phone: No Panel InformationOrdered By: Eloina Meaditrov on 08-12-2019 Interpretation and review of laboratory results Abnormal [employer] Phone: TroponinOrdered By: Grapeword on 08-12-2019 Troponin Interp Rosey Reyes [facility] Work Phone: Comment on above: Reference Range: [...] for diagnosis. Troponin T <0.03 <0.03 ng/mL [employer] Phone: Comment on above: Troponin T results c annot be compared to Troponin-I results. Troponin, High Sensitivity NOT REPORTED 0 - 22 ng/L [employer] Phone: XR CHEST PORTABLEOrdered By: Grapeword on 08-12-2019 Mild cardiomegaly an d pulmonary venous congestion but no colleen edema. [employer] Phone: EXAMINATION: XR CHES T PORTABLE COMPARISON: 02/26/2019. CLINICAL DATA: Shortness of breath for one week. FINDINGS: There is cardiomegaly and pulmonary venous congestion but no colleen edema. No pneumothorax or pleural effusion. No focal infiltrate has developed. The left subclavian cardiac pacer defibrillator wires in the right ventricle. [employer] Phone: Andrés, Mhpn Incoming Radiant Results From [employer]Flyer - 08/12/2019 11:36 AM EST EXAMINATION: XR CHEST PORTABLE COMPARISON: 02/26/2019. CLINICAL DATA: Shortness of breath for one week. FINDINGS: There is cardiomegaly and pulmonary venous congestion but no colleen edema. No pneumothorax or pleural effusion. No focal infiltrate has developed. The left subclavian cardiac pacer defibrillator wires in the right ventricle. IMPRESSION: Mild cardiomegaly and pulmonary venous congestion but no colleen edema. [employer] Phone: Protime-INRon 06-03-2019 INR Coag (PPP) [Relative time] 2.8 {INR} [facility] 04-11-2019 INR Coag (PPP) [Relative time] 2.5 {INR} [facility] 10-31-2017 [facility] NOTES Normal [facility] NURSING NOTEon 10-19-2017 [facility] NOTES Normal [facility] NOT[facility] Normal [facility] NOT[facility] Normal [facility] NOT[facility] Normal [facility] NOT[facility] Normal [facility] XR CHEST PA AND LATERALon XR CHEST [...] Left ICD placement. No postprocedure pneumothorax. Normal [facility] BRIEF OP NOTon 10-18-2017 [facility] HIM CAC NOTES Normal [facility] CBC(NO DIFF)on 10-18-2017 Erythrocyte distribution width Auto Ratio (RBC) 15.5 % High 11.5-14.5 [facility] Comment on above: Performed By: #### H EMOG, CMPF, PT ####Testing performed at [address] [address] Erythrocytes (RBC) 5.14 /cmm Normal 4.0-6.1 [facility] Comment on above: Performed By: #### H EMOG, CMPF, PT ####Testing performed at [address] [address] Hematocrit (HCT) 44.0 % Normal 42.0-52.0 [facility] Comment on above: Performed By: #### H EMOG, CMPF, PT ####Testing performed at [address] [address] Hemoglobin mass conc (Bld) 14.7 g/dL Normal 14.0-18.0 [facility] Comment on above: Performed By: #### H EMOG, CMPF, PT ####Testing performed at [address] [address] MCH 28.6 pg Normal 26.0-35.0 [facility] Comment on above: Performed By: #### H EMOG, CMPF, PT ####Testing performed at [address] [address] MCHC mass conc (RBC) 33.5 g/dL Normal 27.0-37.0 [facility] Comment on above: Performed By: #### H EMOG, CMPF, PT ####Testing performed at [address] [address] MCV 85.5 fL Normal 80.0-100.0 [facility] Comment on above: Performed By: #### H EMOG, CMPF, PT ####Testing performed at [address] [address] Platelet mean volume (PMV) 8.6 fL Normal 7.4-11.0 [facility] Comment on above: Performed By: #### H EMOG, CMPF, PT ####Testing performed at [address] [address] Platelets 211 /cmm Normal 130.0-400.0 [facility] Comment on above: Performed By: #### H EMOG, CMPF, PT ####Testing performed at [address] [address] WBC (Leukocytes) 9.2 /cmm Normal 3.6-11.0 [facility] Comment on above: Performed By: #### H EMOG, CMPF, PT ####Testing performed at [address] [address] CMP FASTINGon 10-18-2017 A:G RATIO 1.4 RATIO Normal 1.3-2.2 [facility] Comment on above: Performed By: #### H EMOG, CMPF, PT ####Testing performed at [address] [address] Alanine aminotransferase (ALT) 31 U/L Normal 17-63 [facility] Comment on above: Performed By: #### H EMOG, CMPF, PT ####Testing performed at [address] [address] Albumin 4.8 G/dl Normal 3.5-5.0 [facility] Comment on above: Performed By: #### H EMOG, CMPF, PT ####Testing performed at [address] [address] Alkaline phosphatase (ALP) 67 U/L Normal 38-126 [facility] Comment on above: Performed By: #### H EMOG, CMPF, PT ####Testing performed at [address] [address] Aspartate aminotransferase (AST) 29 U/L Normal 15-41 [facility] Comment on above: Performed By: #### H EMOG, CMPF, PT ####Testing performed at [address] [address] Bilirubin (total) 1.7 mg/dL High 0.2-1.2 [facility] Comment on above: Performed By: #### H EMOG, CMPF, PT ####Testing performed at [address] [address] BUN (urea nitrogen) 47 mg/dL High 7-20 [facility] Comment on above: Performed By: #### H EMOArmin CMPF, PT ####Testing performed at [address] [address] Creatinine 1.6 mg/dL High 0.66-1.25 [facility] Comment on above: Performed By: #### H EMOG, CMPF, PT ####Testing performed at [address] [address] eGFR (non-black) Average GFR for 60-6 9 years old = 85. Normal [facility] Comment on above: Result Comment: Training Representative megan Kidney disease, GFR = <60.Kidney failure, GFR = <15.The GFR estimate is not adjusted for extreme body surface area or acute process, nor has it been validated for women or ethnic groups other than and . Performed By: #### H EMOG, CMPF, PT ####Testing performed at [address] [address] eGFR (non-black) 47 mL/min/{1.73_m2} Normal [facility] Comment on above: Performed By: #### H AISHA MERRITT, PT ####Testing performed at [place] [id number] eGFR (non-black) 57 mL/min/{1.73_m2} Normal [facility] Comment on above: Performed By: #### H AISHA MERRITT, PT ####Testing performed at [place] [id number] Protein 8.2 g/dL Normal 6.3-8.2 [facility] Comment on above: Performed By: #### H AISHA MERRITT, PT ####[place] [address] Calcium 10.2 mg/dL Normal 8.4-10.2 [facility] Comment on above: Performed By: #### H AISHA MERRITT, PT ####[place] [address] Chloride 102 mmol/L Normal 98-107 [facility] Comment on above: Performed By: #### AISHA LANCASTER, PT ####[place] [address] CO2 25 mmol/L Normal 22-30 [facility] Comment on above: Performed By: #### H AISHA MERRITT, PT ####Testing performed at [place] [id number] Glucose mass conc 138 mg/dL High 70-100 [facility] Comment on above: Result Comment: NORM AL <100 mg/dLPREDIABETES 101-126 mg/dLDIABETES 126 mg/dL or higher Performed By: #### H AISHA MERRITT, PT ####[place] [address] Potassium molar conc 5.3 mmol/L High 3.5-5.1 [facility] Comment on above: Performed By: #### H AISHA MERRITT, PT ####Testing performed at [address] [address] Sodium 137 mmol/L Normal 137-145 [facility] Comment on above: Performed By: #### H EMOG, CMPF, PT ####[place] [address] HISTORY AND PHYSICALon 10-18 [facility] NOTES Normal [facility] MRSA SCREENon 10-18-2017 MRSA SCREEN Negative [facility] Comment on above: Performed By: #### M RSAST ####[place] [address] STAPH AUREUS SCREEN Negative [facility] Comment on above: Result Comment: TEST ING PERFORMED BY PCR Performed By: #### M RSAST ####[place] [address] NURSING NOTEon 10-18-2017 [facility] NOTES Normal [facility] Normal [facility] NOT[facility] Normal [facility] NOT[facility] Normal [facility] NOT[facility] Normal [facility] NOTES Normal [facility] OP NOTEon 10-18-2017 [facility] NOTES Normal [facility] PLAN OF CAREon 10-18-2017 [facility] NOTES Normal [facility] PROGRESSon 10-18-2017 [facility] NOTES Normal [facility] PROTIMEon 10-18-2017 INR Coag RelTime (PPP) 1.40 {INR} High 0.88-1.12 [facility] Comment on above: Result Comment: 2.0- 3.0 THERAPEUTIC RANGE2.5-3.5 PROSTHETIC VALVE RANGE Performed By: #### H EMOG, CMPF, PT ####[place] [address] Prothrombin time (PT) Coag time (PPP) 17.1 s High 11.6-14.0 [facility] Comment on above: Performed By: #### H EMOG, CMPF, PT ####[place] [address] PROGRESSon 09-25-2017 [facility] NOTES Normal [facility] MR CARDIAC MORPHOLOGY WITH A ND WITHOUT [...] akinesis of the apical anterior wall and prvavvdm-cv-lsjhxv hypokinesis of the other apical segments. On [...] of interstitial pulmonary edema.Findings discussed with Dr. Nicole.SRAVAN/pjiWbobby on ID: [id number] by: LESLIE MABRY on MonSep 18, 2017 2:50:27 PM ESTTranscribed by: LISS GIBSON on MonSep 18, 2017 3:15:42 PM ESTFinalized by: LESLIE MABRY on MonSep 18, 2017 8:06:56 PM EST Normal [facility] Comment on above: Order Comment: DX:I2 5.5, [...] pulmonary edema. Findings discussed with Dr. Nicole. JRS/pjcate Workstation ID: [id number] Invalid Interpretation Code [facility] MR Cardiac Morphology With And Without Contrast [...] akinesis of the apical anterior wall and wfonawcm-km-oqclnw hypokinesis of the other apical segments. On [...] mild interstitial pulmonary edema. Invalid Interpretation Code [facility] MR Cardiac Morphology With And Without Contrast Interface, Rad In [employer] - 09/18/2017 8:09 PM EST EXAMINATION: MR [...] akinesis of the apical anterior wall and lpzqtgos-ky-gynywh hypokinesis of the other apical segments. On [...] pulmonary edema. Findings discussed with Dr. Nicole. JRJess/arcenio Workstation ID: [id number] Invalid Interpretation Code [facility] Creatinineon 09-18-2017 Creatinine 1.4 mg/dL High 0.5 - 1.3 mg/dL [facility] Interpretation and review of laboratory results Abnormal Invalid Interpretation Code [facility] Glucose, POCon 09-06-2017 Glucose mass conc 95 mg/dL Normal 70-105 [facility] Comment on above: Performed By: #### G LUX ####Unless otherwise noted, all testing performed [facility] [address] Isabel Lewis.[place], [place] [id number]: [id number] Director: Mando Chiu M.D. Operation-Procedureon 2017 Operation-Procedure [address] [place], [place] [address]WSGDGREGG [facility] [id number] 1957DATEOPERATIVE REPORT / PROCEDURE NOTESURGEON AYED NICOLE, SEARCY HOSPITALROCEDURELeft heart catheterization, Haroon technique.INDICATIONMrLizzette Foster is a pleasant 61-year-old gentleman who [...] right femoralartery and through this placed a 6-Greek sheath. I then placed a Judkinsleft diagnostic [...] directed therapy .AYDE NICOLE, SOHEILA 09/06/2017 12:48 [id number] 09/06/2017 13:50 GSV/MODLcc: Jeff Cerda MDElectronically Signed By Ayde Nicole M.D. on 13 Sep 2017 12:43:56 GMT Normal [facility] Vital Signs Date Time Vital Sign Value Performing Clinician Alix mosley 09-18-2023 15:29-050 Body height 180.3 cm Luc Zacarias MD Work Phone: [facility] 09-18-2023 15:29-050 Body weight 103.42 kg Luc Zacarias MD Work Phone: [facility] 09-18-2023 15:29-050 Diastolic blood pressure 72 mm[Hg] Luc Zacarias MD Work Phone: [facility] 09-18-2023 15:29-0500 Heart rate 69 /min Luc Zacarias MD Work Phone: [facility] 09-18-2023 15:29-0500 Systolic blood pressure 114 mm[Hg] Luc Zacarias MD Work Phone: [facility] 09-15-2023 07:00-0500 Body temperature 98.49 [degF] Eva Mendez MD Work Phone: [facility] 09-15-2023 07:00-0500 Diastolic blood pressure 77 mm[Hg] Eva Mendez MD Work Phone: [facility] 09-15-2023 07:00-0500 Heart rate 108 /min Eva Mendez MD Work Phone: [facility] 09-15-2023 07:00-0500 Respiratory rate 17 /min Eva Mendez MD Work Phone: [facility] 09-15-2023 07:00-0500 SaO2% (BldA) [Mass fraction] 95 % Eva Mendez MD Work Phone: [facility] 09-15-2023 07:00-0500 Systolic blood pressure 128 mm[Hg] Eva Mendez MD Work Phone: [facility] 09-13-2023 16:00-0500 Body height 180.3 cm Eva Mendez MD Work Phone: [facility] 09-13-2023 16:00-0500 Body mass index (BMI) [Ratio] 32.36 kg/m2 Eva Mendez MD Work Phone: [facility] 09-13-2023 16:00-0500 Body weight 105.23 kg Eva Mendez MD Work Phone: [facility] 09-06-2023 09:31-0500 Diastolic blood pressure 68 mm[Hg] Shahab Buckley MD Work Phone: [facility] 09-06-2023 09:31-0500 Heart rate 81 /min Shahab Buckley MD Work Phone: [facility] 09-06-2023 09:31-0500 Systolic blood pressure 113 mm[Hg] Shahab Buckley MD Work Phone: [facility] 09-06-2023 09:18-0500 Body height 180.3 cm Shahab Buckley MD Work Phone: [facility] 09-06-2023 09:18-0500 Body mass index (BMI) [Ratio] 33.61 kg/m2 Shahab Buckley MD Work Phone: [facility] 09-06-2023 09:18-0500 Body weight 109.32 kg Shahab Buckley MD Work Phone: [facility] 07-12-2023 11:18-0500 Body height 180.3 cm Carolina Stover MD Work Phone: [facility] 07-12-2023 11:18-0500 Body weight 103.42 kg Carolina Stover MD Work Phone: [facility] 07-12-2023 11:18-0500 Diastolic blood pressure 78 mm[Hg] Carolina Stover MD Work Phone: [facility] 07-12-2023 11:18-0500 Heart rate 64 /min Carolina Stover MD Work Phone: [facility] 07-12-2023 11:18-0500 Respiratory rate 15 /min Carolina Stover MD Work Phone: [facility] 07-12-2023 11:18-0500 SaO2% (BldA) [Mass fraction] 98 % Carolina Stover MD Work Phone: [facility] 07-12-2023 11:18-0500 Systolic blood pressure 109 mm[Hg] Carolina Stover MD Work Phone: [facility] 06-27-2023 10:10-0500 Body height 180.3 cm Yannick Zuñiga PA-C Work Phone: [facility] 06-27-2023 10:10-0500 Body weight 104.33 kg Yannick Zuñiga PA-C Work Phone: [facility] 06-27-2023 10:10-0500 Diastolic blood pressure 57 mm[Hg] Yannick Matejka PA-C Work Phone: [facility] 06-27-2023 10:10-0500 Heart rate 81 /min Yannick Matejka PA-C Work Phone: [facility] 06-27-2023 10:10-0500 SaO2% (BldA) [Mass fraction] 100 % Yannick Matejka PA-C Work Phone: [facility] 06-27-2023 10:10-0500 Systolic blood pressure 102 mm[Hg] Yannick Matejka PA-C Work Phone: [facility] 06-16-2023 10:41-0500 Body height 180.3 cm Fany Laffey COORDINATOR CARDIOPULMONARY SERVICES.SPANISHER Work Phone: [facility] 06-16-2023 10:41-0500 Body weight 103.87 kg Fany Laffey COORDINATOR CARDIOPULMONARY SERVICES.SPANISHER Work Phone: [facility] 06-16-2023 10:41-0500 Diastolic blood pressure 74 mm[Hg] Fany Laffey COORDINATOR CARDIOPULMONARY SERVICES.SPANISHER Work Phone: [facility] 06-16-2023 10:41-0500 Heart rate 51 /min Fany Laffey COORDINATOR CARDIOPULMONARY SERVICES.SPANISHER Work Phone: [facility] 06-16-2023 10:41-0500 SaO2% (BldA) [Mass fraction] 99 % Fany Laffey COORDINATOR C[employer]IOPULMONARY SERVICES.SPANISHER Work Phone: [facility] 06-16-2023 10:41-0500 Systolic blood pressure 112 mm[Hg] Fany Laffey COORDINATOR CARDIOPULMONARY SERVICES.SPANISHER Work Phone: [facility] 04-26-2023 10:12-0400 Body height 180.3 cm Yannick Matejka PA-C Work Phone: [facility] 04-26-2023 10:12-0400 Body weight 103.87 kg Yannick Matejka PA-C Work Phone: [facility] 04-26-2023 10:12-0400 Diastolic blood pressure 71 mm[Hg] Yannick Sala PA-C Work Phone: [facility] 04-26-2023 10:12-0400 Heart rate 84 /min Yannick Sala PA-C Work Phone: [facility] 04-26-2023 10:12-0400 SaO2% (BldA) [Mass fraction] 100 % Yannick Sala PA-C Work Phone: [facility] 04-26-2023 10:12-0400 Systolic blood pressure 122 mm[Hg] Yannick Sala PA-C Work Phone: [facility] 01-04-2023 07:59-0400 Body mass index (BMI) [Ratio] 33.14 kg/m2 Rogerio Gruber [facility] 01-04-2023 07:59-0400 Body weight 107.78 kg Rogerio Gruber [facility] 01-04-2023 07:59-0400 Diastolic blood pressure 78 mm[Hg] Rogerio Gruber [facility] 01-04-2023 07:59-0400 Heart rate 80 /min Rogerio Gruebr [facility] 01-04-2023 07:59-0400 Systolic blood pressure 125 mm[Hg] Rogerio Gruber [facility] 11-23-2022 07:53-0400 Body mass index (BMI) [Ratio] 33.22 kg/m2 Rogerio Gruber [facility] 11-23-2022 07:53-0400 Body weight 108.05 kg Rogerio Gruber [facility] 11-23-2022 07:53-0400 Diastolic blood pressure 87 mm[Hg] Rogerio Gruber [facility] 11-23-2022 07:53-0400 Heart rate 92 /min Rogerio Gruber [facility] 11-23-2022 07:53-0400 Systolic blood pressure 123 mm[Hg] Roger[facility] 10-26-2022 07:57-0400 Body mass index (BMI) [Ratio] 33.36 kg/m2 Rogerio Gruber [facility] 10-26-2022 07:57-0400 Body weight 108.5 kg Rogerio Gruber [facility] 10-26-2022 07:57-0400 Diastolic blood pressure 63 mm[Hg] [facility] 10-26-2022 07:57-0400 Heart rate 80 /min Rogerio Gruber [facility] 10-26-2022 07:57-0400 Systolic blood pressure 122 mm[Hg] Roger[facility] 09-21-2022 07:57-0500 Body mass index (BMI) [Ratio] 33.05 kg/m2 Rogerio Gruber [facility] 09-21-2022 07:57-0500 Body weight 107.5 kg Rogerio Gruber RP [facility] 09-21-2022 07:57-0500 Diastolic blood pressure 77 mm[Hg] Rogerio Gruber RP [facility] 09-21-2022 07:57-0500 Heart rate 78 /min Rogerio Gruber [facility] 09-21-2022 07:57-0500 Systolic blood pressure 111 mm[Hg] Rogerio Gruber RP [facility] 08-26-2022 15:33-0500 Diastolic blood pressure 81 mm[Hg] Shahab Buckley MD Work Phone: [facility] 08-26-2022 15:33-0500 Heart rate 80 /min Shahab Buckley MD Work Phone: [facility] 08-26-2022 15:33-0500 Systolic blood pressure 131 mm[Hg] Shahab Buckley MD Work Phone: [facility] 08-26-2022 15:26-0500 Body height 180.3 cm Shahab Buckley MD Work Phone: [facility] 08-26-2022 15:26-0500 Body mass index (BMI) [Ratio] 33.05 kg/m2 Shahab Buckley MD Work Phone: [facility] 08-26-2022 15:26-0500 Body weight 107.5 kg Shahab Buckley MD Work Phone: [facility] 08-24-2022 08:02-0500 Body mass index (BMI) [Ratio] 34.59 kg/m2 [facility] 08-24-2022 08:02-0500 Body weight 112.49 kg Rogerio Allyn [facility] 08-24-2022 08:02-0500 Diastolic blood pressure 61 mm[Hg] Rogerio [facility]uber [facility] 08-24-2022 08:02-0500 Heart rate 37 /min Rogerio Gruber [facility] 08-24-2022 08:02-0500 Systolic blood pressure 121 mm[Hg] [facility] 07-27-2022 07:58-0500 Body mass index (BMI) [Ratio] 32.78 kg/m2 [facility] 07-27-2022 07:58-0500 Body weight 106.59 kg [facility] 07-27-2022 07:58-0500 Diastolic blood pressure 66 mm[Hg] [facility] 07-27-2022 07:58-0500 Heart rate 60 /min Rogerio Gruber [facility] 07-27-2022 07:58-0500 Systolic blood pressure 122 mm[Hg] [facility] 06-01-2022 08:13-0400 Body mass index (BMI) [Ratio] 32.78 kg/m2 Rogerio Gruber [facility] 06-01-2022 08:13-0400 Body weight 106.59 kg Rogerio Gruber [facility] 06-01-2022 08:13-0400 Diastolic blood pressure 64 mm[Hg] Rogerio Gruber [facility] 06-01-2022 08:13-0400 Heart rate 92 /min Rogerio Gruber RP [facility] [employer] 06-01-2022 08:13-0400 Systolic blood pressure 123 mm[Hg] Rogerio Gruber [facility] 04-27-2022 08:00-0400 Body mass index (BMI) [Ratio] 33.05 kg/m2 Rogerio Gruber [facility] 04-27-2022 08:00-0400 Body weight 107.5 kg Rogerio Gruber [facility] [employer] 04-27-2022 08:00-0400 Diastolic blood pressure 63 mm[Hg] Rogerio Gruber [facility] 04-27-2022 08:00-0400 Heart rate 97 /min Rogerio Gruber [facility] [employer] 04-27-2022 08:00-0400 Systolic blood pressure 122 mm[Hg] Rogerio Gruber [facility] 03-30-2022 07:52-0400 Body mass index (BMI) [Ratio] 33.28 kg/m2 Rogerio Gruber [facility] [employer] 03-30-2022 07:52-0400 Body weight 108.23 kg Rogerio Gruber [facility] [employer] 03-30-2022 07:52-0400 Diastolic blood pressure 71 mm[Hg] Rogerio Gruber [facility] [employer] 03-30-2022 07:52-0400 Heart rate 60 /min Rogerio Gruber [facility] [employer] 03-30-2022 07:52-0400 Systolic blood pressure 127 mm[Hg] Rogerio Gruber [facility] [employer] 03-16-2022 08:12-0400 Body mass index (BMI) [Ratio] 33.17 kg/m2 Rogerio Gruber [facility] [employer] 03-16-2022 08:12-0400 Body weight 107.86 kg Rogerio Gruber [facility] [employer] 03-16-2022 08:12-0400 Diastolic blood pressure 84 mm[Hg] Rogerio Gruber [facility] [employer] 03-16-2022 08:12-0400 Heart rate 73 /min Rogerio Gruber [facility] [employer] 03-16-2022 08:12-0400 Systolic blood pressure 141 mm[Hg] [facility] 03-02-2022 07:53-0400 Body mass index (BMI) [Ratio] 32.78 kg/m2 Rogerio Gruber [facility] 03-02-2022 07:53-0400 Body weight 106.59 kg Rogerio Gruber [facility] 03-02-2022 07:53-0400 Diastolic blood pressure 70 mm[Hg] Rogerio Gruber [facility] 03-02-2022 07:53-0400 Heart rate 67 /min Rogerio Gruber [facility] 03-02-2022 07:53-0400 Systolic blood pressure 114 mm[Hg] Rogerio Gruber [facility] 02-22-2022 08:25-0400 Body mass index (BMI) [Ratio] 32.27 kg/m2 Marion Bell [facility] 02-22-2022 08:25-0400 Body weight 104.96 kg Marion Bell [facility] 02-22-2022 08:25-0400 Diastolic blood pressure 67 mm[Hg] Marion Bell [facility] 02-22-2022 08:25-0400 Heart rate 68 /min Marion Bell [facility] 02-22-2022 08:25-0400 Systolic blood pressure 122 mm[Hg] Marion Bell [facility] 02-11-2022 15:49-0400 Diastolic blood pressure 78 mm[Hg] Shahab Buckley MD Work Phone: [facility] 02-11-2022 15:49-0400 Heart rate 83 /min Shahab Buckley MD Work Phone: [facility] 02-11-2022 15:49-0400 Systolic blood pressure 136 mm[Hg] Shahab Buckley MD Work Phone: [facility] 02-11-2022 15:42-0400 Body height 180.3 cm Shahab Buckley MD Work Phone: [facility] 02-11-2022 15:42-0400 Body mass index (BMI) [Ratio] 32.5 kg/m2 Shahab Buckley MD Work Phone: [facility] 02-11-2022 15:42-0400 Body weight 105.69 kg Shahab Buckley MD Work Phone: [facility] 02-03-2022 07:43-0400 Body mass index (BMI) [Ratio] 31.8 kg/m2 Raffy Richardson RP [facility] 02-03-2022 07:43-0400 Body weight 103.42 kg Raffy Richardson RP [facility] 02-03-2022 07:43-0400 Diastolic blood pressure 64 mm[Hg] Raffy Richardson RP [facility] 02-03-2022 07:43-0400 Heart rate 76 /min Raffy Richardson RP [facility] 02-03-2022 07:43-0400 Systolic blood pressure 113 mm[Hg] Raffy Richardson RP [facility] 01-27-2022 08:19-0400 Body mass index (BMI) [Ratio] 31.97 kg/m2 Raffy Richardson RP [facility] 01-27-2022 08:19-0400 Body weight 103.96 kg Raffy Richardson RP [facility] 01-27-2022 08:19-0400 Diastolic blood pressure 70 mm[Hg] Raffy Richardson RP [facility] 01-27-2022 08:19-0400 Heart rate 77 /min Rafyf Richardson RP [facility] 01-27-2022 08:19-0400 Systolic blood pressure 108 mm[Hg] Raffy Richardson RP [facility] 01-20-2022 07:52-0400 Body mass index (BMI) [Ratio] 32.33 kg/m2 Raffy Richardson RP [facility] 01-20-2022 07:52-0400 Body weight 105.14 kg Raffy Richardson RP [facility] 01-20-2022 07:52-0400 Diastolic blood pressure 53 mm[Hg] Raffy Richardson RP [facility] 01-20-2022 07:52-0400 Heart rate 41 /min Raffy Richardson RP [facility] 01-20-2022 07:52-0400 Systolic blood pressure 105 mm[Hg] Raffy Richardson [facility] 01-13-2022 07:54-0400 Body mass index (BMI) [Ratio] 33.28 kg/m2 Raffy Richardson [facility] 01-13-2022 07:54-0400 Body weight 108.23 kg Rfafy Richardson [facility] 01-13-2022 07:54-0400 Diastolic blood pressure 56 mm[Hg] Raffy Richardson [facility] 01-13-2022 07:54-0400 Heart rate 72 /min Raffy Richardson [facility] 01-13-2022 07:54-0400 Systolic blood pressure 100 mm[Hg] Raffy Richardson [facility] 01-07-2022 20:05-0400 Body mass index (BMI) [Ratio] 33.19 kg/m2 Lonnie Hart MD Work Phone: [facility] [employer] [facility] 01-07-2022 20:05-0400 Body temperature 97.7 [degF] Lonnie Hart MD Work Phone: [facility] [employer] [facility] 01-07-2022 20:05-0400 Body weight 107.96 kg Lonnie Hart MD Work Phone: [facility] [employer] [facility] 01-07-2022 20:05-0400 Diastolic blood pressure 96 mm[Hg] Lonnie Hart MD Work Phone: [facility] 01-07-2022 20:05-0400 Heart rate 101 /min Lonnie Hart MD Work Phone: [facility] [employer] [facility] 01-07-2022 20:05-0400 Respiratory rate 18 /min Lonnie Hart MD Work Phone: [facility] [employer] 01-07-2022 20:05-0400 SaO2% (BldA) [Mass fraction] 98 % Lonnie Hart MD Work Phone: [facility] [employer] 01-07-2022 20:05-0400 Systolic blood pressure 151 mm[Hg] Lonnie Hart MD Work Phone: [facility] 01-06-2022 07:52-0400 Body mass index (BMI) [Ratio] 33.25 kg/m2 Raffy Richardson [facility] 01-06-2022 07:52-0400 Body weight 108.14 kg Raffy Richardson [facility] 01-06-2022 07:52-0400 Diastolic blood pressure 67 mm[Hg] Raffy Richardson [facility] 01-06-2022 07:52-0400 Heart rate 41 /min Raffy Richardson [facility] 01-06-2022 07:52-0400 Systolic blood pressure 111 mm[Hg] Raffy Richardson [facility] 12-29-2021 08:00-0400 Body temperature 98.01 [degF] Shahab Buckley MD Work Phone: [facility] 12-29-2021 08:00-0400 Diastolic blood pressure 74 mm[Hg] Shahab Buckley MD Work Phone: [facility] 12-29-2021 08:00-0400 Heart rate 78 /min Shahab Buckley MD Work Phone: [facility] 12-29-2021 08:00-0400 Respiratory rate 14 /min Shahab Buckley MD Work Phone: [facility] 12-29-2021 08:00-0400 SaO2% (BldA) [Mass fraction] 96 % Shahab Buckley MD Work Phone: [facility] 12-29-2021 08:00-0400 Systolic blood pressure 122 mm[Hg] Shahab Buckley MD Work Phone: [facility] 12-28-2021 11:00-0400 Body height 180.3 cm Shahab Buckley MD Work Phone: [facility] 12-28-2021 11:00-0400 Body mass index (BMI) [Ratio] 33.39 kg/m2 Shahab Buckley MD Work Phone: [facility] 12-28-2021 11:00-0400 Body weight 108.6 kg Shahab Buckley MD Work Phone: [facility] 12-22-2021 07:39-0400 Body mass index (BMI) [Ratio] 34.78 kg/m2 Raffy [facility] 12-22-2021 07:39-0400 Body weight 113.13 kg Raffy [facility] 12-22-2021 07:39-0400 Diastolic blood pressure 68 mm[Hg] Raffy [facility] 12-22-2021 07:39-0400 Heart rate 77 /min Raffy [facility] 12-22-2021 07:39-0400 Systolic blood pressure 111 mm[Hg] Raffy [facility] 12-09-2021 07:41-0400 Body mass index (BMI) [Ratio] 35.37 kg/m2 [facility] 12-09-2021 07:41-0400 Body weight 115.03 kg [facility] 12-09-2021 07:41-0400 Diastolic blood pressure 64 mm[Hg] [facility] 12-09-2021 07:41-0400 Heart rate 71 /min [facility] 12-09-2021 07:41-0400 Systolic blood pressure 115 mm[Hg] [facility] 12-08-2021 15:59-0400 Diastolic blood pressure 87 mm[Hg] Shahab Buckley MD Work Phone: [facility] 12-08-2021 15:59-0400 Heart rate 98 /min Shahab Buckley MD Work Phone: [facility] 12-08-2021 15:59-0400 Systolic blood pressure 132 mm[Hg] Shahab Buckley MD Work Phone: [facility] 12-08-2021 15:52-0400 Body height 180.3 cm Shahab Buckley MD Work Phone: [facility] 12-08-2021 15:52-0400 Body mass index (BMI) [Ratio] 35.43 kg/m2 Shahab Buckley MD Work Phone: [facility] 12-08-2021 15:52-0400 Body weight 115.21 kg Shahab Buckley MD Work Phone: [facility] 11-16-2021 08:05-0400 Body mass index (BMI) [Ratio] 34.76 kg/m2 Raffy [facility] 11-16-2021 08:05-0400 Body weight 113.04 kg Raffy [facility] 11-16-2021 08:05-0400 Diastolic blood pressure 66 mm[Hg] Raffy [facility] 11-16-2021 08:05-0400 Heart rate 78 /min Raffy [facility] 11-16-2021 08:05-0400 Systolic blood pressure 128 mm[Hg] Raffy [facility] 08-10-2021 08:03-0500 Body mass index (BMI) [Ratio] 34.06 kg/m2 Raffy [facility] 08-10-2021 08:03-0500 Body weight 110.77 kg [facility] 08-10-2021 08:03-0500 Diastolic blood pressure 67 mm[Hg] [facility] 08-10-2021 08:03-0500 Heart rate 45 /min [facility] 08-10-2021 08:03-0500 Systolic blood pressure 127 mm[Hg] [facility] 06-07-2021 07:41-0400 Body mass index (BMI) [Ratio] 34.92 kg/m2 Raffy [facility] Work Phone: 06-07-2021 07:41-0400 Body weight 113.58 kg Raffy [facility] Work Phone: 06-07-2021 07:41-0400 Diastolic blood pressure 62 mm[Hg] Raffy [facility] Work Phone: 06-07-2021 07:41-0400 Heart rate 72 /min Raffy [facility] Work Phone: 06-07-2021 07:41-0400 Systolic blood pressure 114 mm[Hg] Raffy [facility] Work Phone: 04-23-2021 07:40-0400 Body mass index (BMI) [Ratio] 34.81 kg/m2 Raffy Richardson RP [employer] Work Phone: 04-23-2021 07:40-0400 Body weight 113.22 kg Raffy Richardson [facility] [employer] Phone: 04-23-2021 07:40-0400 Diastolic blood pressure 63 mm[Hg] [facility] [employer] Work Phone: 04-23-2021 07:40-0400 Heart rate 55 /min Raffy Richardson [facility] [employer] Work Phone: 04-23-2021 07:40-0400 Systolic blood pressure 124 mm[Hg] [facility] [employer] Work Phone: 03-01-2021 10:30-0400 Body mass index (BMI) [Ratio] 33.92 kg/m2 Lorri Carmen [facility] Work Phone: [employer] Work Phone: 03-01-2021 10:30-0400 Body weight 110.31 kg Lorri Carmen [facility] Work Phone: [facility] [employer] Phone: 03-01-2021 10:30-0400 Diastolic blood pressure 68 mm[Hg] Lorri Carmen [facility] Work Phone: [facility] [employer] Work Phone: 03-01-2021 10:30-0400 Heart rate 66 /min Lorri Carmen [facility] Work Phone: [employer] Work Phone: 03-01-2021 10:30-0400 Systolic blood pressure 128 mm[Hg] Lorri Carmen [facility] Work Phone: [facility] [employer] Work Phone: 12-29-2020 08:07-0400 Body mass index (BMI) [Ratio] 34.62 kg/m2 Raffy Richardson [facility] [employer] Phone: 12-29-2020 08:07-0400 Body weight 112.58 kg Raffy Richardson [facility] [employer] Phone: 12-29-2020 08:07-0400 Diastolic blood pressure 67 mm[Hg] Raffy Richardson [facility] [employer] Phone: 12-29-2020 08:07-0400 Heart rate 71 /min Raffy Richardson [facility] [employer] Phone: 12-29-2020 08:07-0400 Systolic blood pressure 122 mm[Hg] Raffy Richardson [facility] [employer] Phone: 11-23-2020 10:14-0400 Body temperature 96.8 [degF] Ayde Matthews [employer] Phone: [employer] Phone: 11-23-2020 10:14-0400 Diastolic blood pressure 93 mm[Hg] Ayde Matthews [employer] Phone: [employer] Phone: 11-23-2020 10:14-0400 Heart rate 84 /min Ayde Matthews [employer] Phone: [employer] Phone: 11-23-2020 10:14-0400 Respiratory rate 14 /min Ayde Matthews [employer] Phone: [employer] Phone: 11-23-2020 10:14-0400 SaO2% (BldA) [Mass fraction] 96 % Ayde Matthews [employer] Phone: [employer] Phone: 11-23-2020 10:14-0400 Systolic blood pressure 155 mm[Hg] Ayde Matthews [employer] Phone: [employer] Phone: 11-23-2020 06:16-0400 Body height 180.3 cm Ayde [employer] Phone: [employer] Phone: 11-23-2020 06:16-0400 Body mass index (BMI) [Ratio] 34.8 kg/m2 Ayde [employer] Phone: [employer] Phone: 11-23-2020 06:16-0400 Body weight 113.17 kg Ayde [employer] Phone: [employer] Phone: 11-17-2020 08:06-0400 BMI (Body Mass Index) 35.06 kg/m2 Raffy [employer] Phone: 11-17-2020 08:06-0400 Body weight 114.03 kg Raffy [employer] Phone: 11-17-2020 08:06-0400 BP Diastolic 59 mm[Hg] Raffy [employer] Phone: 11-17-2020 08:06-0400 BP Systolic 101 mm[Hg] Raffy [employer] Phone: 11-17-2020 08:06-0400 Pulse (Heart Rate) 71 /min Raffy [employer] Phone: 11-09-2020 13:12-0400 BMI (Body Mass Index) 34.31 kg/m2 [facility] [employer] Phone: 11-09-2020 13:12-0400 Body Temperature 96.8 [degF] [facility] [employer] Phone: 11-09-2020 13:12-0400 Body weight 111.58 kg [facility] [employer] Phone: 11-09-2020 13:12-0400 BP Diastolic 78 mm[Hg] [facility] [employer] Phone: 11-09-2020 13:12-0400 BP Systolic 120 mm[Hg] [facility] [employer] Phone: 11-09-2020 13:12-0400 Height 180.3 cm [facility] [employer] Phone: 11-09-2020 13:12-0400 Pulse (Heart Rate) 73 /min [facility] [employer] Phone: 11-09-2020 13:12-0400 Pulse Oximetry 100 % [facility] [employer] Phone: 11-09-2020 13:12-0400 Respiratory Rate 18 /min [facility] [employer] Phone: 05-14-2020 07:41-0400 Body Temperature 96.8 [degF] [facility] [place] 04-02-2020 07:36-0400 Body Temperature 97.2 [degF] [place] [facility] 02-20-2020 07:39-0400 Body Temperature 97.81 [degF] [place] [facility] 01-09-2020 07:46-0400 Body Temperature 97.11 [degF] Lorri Marquee [facility] 10-17-2019 07:33-0400 BMI (Body Mass Index) 34.55 kg/m2 [place] [facility] 10-17-2019 07:33-0400 Body weight 112.31 kg [facility] [place] 10-17-2019 07:33-0400 BP Diastolic 75 mm[Hg[facility] [place] 10-17-2019 07:33-0400 BP Systolic 154 mm[Hg] [facility] [place] 10-17-2019 07:33-0400 Pulse (Heart Rate) 70 /min [facility] [place] 09-02-2019 11:31-0500 Body mass index (BMI) [Ratio] 33.14 kg/m2 Raffy Richardson [facility] [employer] Work Phone: 09-02-2019 11:31-0500 Body weight 107.78 kg Raffy Richardson [facility] [employer] Work Phone: 09-02-2019 11:31-0500 Diastolic blood pressure 57 mm[Hg] Raffy Richardson [facility] [employer] Work Phone: 09-02-2019 11:31-0500 Heart rate 77 /min Raffy Richardson [facility] [employer] Work Phone: 09-02-2019 11:31-0500 Systolic blood pressure 115 mm[Hg] Raffy Richardson [facility] [employer] Work Phone: 08-12-2019 14:48-0500 Diastolic blood pressure 84 mm[Hg] Eloina Pat MD Work Phone: [employer] Work Phone: 08-12-2019 14:48-0500 Heart rate 77 /min Eloina Pat MD Work Phone: [employer] Work Phone: 08-12-2019 14:48-0500 Respiratory rate 21 /min Eloina Pat MD Work Phone: [employer] Work Phone: 08-12-2019 14:48-0500 SaO2% (BldA) [Mass fraction] 96 % Eloina Pat MD Work Phone: [employer] Work Phone: 08-12-2019 14:48-0500 Systolic blood pressure 151 mm[Hg] Eloina Pat MD Work Phone: [employer] Work Phone: 08-12-2019 11:35-0500 Body temperature 98.2 [degF] Eloina Pat MD Work Phone: [employer] Work Phone: 08-12-2019 10:51-0500 Body height 180.3 cm Eloina Pat MD Work Phone: [employer] Work Phone: 08-12-2019 10:51-0500 Body mass index (BMI) [Ratio] 30.68 kg/m2 Eloina Pat MD Work Phone: [employer] Work Phone: 08-12-2019 10:51-0500 Body weight 99.79 kg [facility]ina Pat [facility] Work Phone: 06-03-2019 12:15-0400 Body weight 111.22 kg [place], [place] 06-03-2019 12:15-0400 BP Diastolic 72 mm[Hg] [place] 06-03-2019 12:15-0400 BP Systolic 119 mm[Hg] [place] 06-03-2019 12:15-0400 Pulse (Heart Rate) 68 /min [facility], [place] 04-11-2019 07:31-0400 Body weight 109.59 kg [place], [place] 04-11-2019 07:31-0400 BP Diastolic 86 mm[Hg] [place] 04-11-2019 07:31-0400 BP Systolic 137 mm[Hg] [place] 04-11-2019 07:31-0400 Pulse (Heart Rate) 77 /min [place], [place] 09-18-2017 07:08-0500 BMI (Body Mass Index) 33.47 kg/m2 Ayde Reyesneda [facility] Work Phone: 09-18-2017 07:08-0500 Height 180.[address] [facility] Work Phone: 09-18-2017 07:08-0500 Weight 108.[address] [facility] Work Phone: Encounters Encounter Date Encounter Type Care Provider Facility Start: 10-12-2023 Orders Only Angeles Samano RN [facility] Comment on above: PAD (peripheral antione ry disease) (HCC) (Primary Dx) Start: 10-03-2023 Follow-up encounter Flor Vitale MD Work Phone: [facility] Start: 10-03-2023 ICD Remote F/U Flor Abbott i, MD Work Phone: [facility] Start: 10-03-2023 End: 10-04-2023 ambulatory SHAHAB QUEZADA [facility] Start: 09-23-2023 Follow-up encounter Flor Vitale MD Work Phone: [facility] Start: 09-23-2023 ICD Remote F/U Flor Abbott i, MD Work Phone: [facility] Start: 09-22-2023 Follow-up encounter Flor Vitale MD Work Phone: [facility] Start: 09-22-2023 ICD Remote F/U Flor Abbott i, MD Work Phone: [facility] Start: 09-19-2023 Orders Only Jeff willard MD Work Phone: [facility] Comment on above: Pulmonary hypertensi on (CMS/HCC) (Primary Dx) Start: 09-18-2023 End: 09-19-2023 ambulatory LUC ZACARIAS Facility:[facility] Start: 09-18-2023 End: 09-18-2023 ambulatory JEFF CERDA Facility:[facility] Start: 09-18-2023 End: 09-19-2023 Patient encounter procedure Luc Zacarias MD Work Phone: Cardiology Comment on above: Chronic systolic con gestive heart failure (HCC) (Primary Dx); IVCD (intraventricular conduction defect); On anticoagulant therapy; Atrial fibrillation, persistent (HCC) Start: 09-18-2023 End: 09-18-2023 Patient encounter procedure [facility] Work Phone: Vascular Medicine Comment on above: Chronic systolic HF (heart failure) (HCC) Start: 09-13-2023 End: 09-15-2023 Evaluation and management of inpatient [facility] Start: 09-13-2023 End: 09-15-2023 Evaluation and management of inpatient Shahab Buckley MD Work Phone: [facility] Observation Start: 09-06-2023 End: 09-06-2023 ambulatory JEFF CERDA [facility] Start: 09-06-2023 End: 09-06-2023 Office outpatient visit 40 minutes Shahab Buckley MD Work Phone: [facility] Comment on above: Critical limb ischem ia of right lower extremity (HCC) (Primary Dx) Start: 08-30-2023 End: 08-31-2023 ambulatory SHAHAB BUCKLEY [facility] Start: 08-24-2023 Documentation procedure Angeles Samano RN 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; Atrial fibrillation, chronic (HCC) Start: 07-04-2023 Follow-up encounter Flor Vitale MD Work Phone: [facility] Start: 07-04-2023 ICD Remote F/U Flor Abbott i, MD Work Phone: [facility] Start: 06-27-2023 Nursing evaluation o f patient and report Research Coordinator Work Phone: Cardiology Comment on above: Research IRB [id number] CordioHearO (Primary Dx) Start: 06-27-2023 Patient entered into trial Research Coordinator Work Phone: [facility] Start: 06-27-2023 End: 06-27-2023 ambulatory YANNICK ZUÑIGA Facility:[facility] Start: 06-27-2023 End: 06-27-2023 Patient encounter procedure Yannick Zuñiga PA-C Work Phone: Cardiology Comment on above: Chronic systolic HF (heart failure) (HCC) (Primary Dx); Paroxysmal atrial fibrillation (HCC); Cardiomyopathy, nonischemic (HCC); Frequent PVCs Start: 06-16-2023 Follow-up encounter Flor Vitale MD Work Phone: [facility] Start: 06-16-2023 End: 06-16-2023 Patient encounter procedure Flor Vitale MD Work Phone: [facility] Comment on above: Paroxysmal atrial fi brillation (HCC) (Primary Dx); Pre-op exam Start: 06-16-2023 Encounter for other preprocedural examination FANY TA [facility] Start: 06-16-2023 End: 06-17-2023 ambulatory FLOR VITALE Facility:[facility] Start: 06-16-2023 End: 06-16-2023 Preprocedural examination done Fany Ta APRN.SPANISHER Work Phone: [facility] Work Phone: Start: 06-15-2023 ambulatory Flor Abbott i, MD Work Phone: Cardiology Comment on above: Patient Education (E PS-DCC) Start: 06-12-2023 Follow-up encounter Flor Vitale MD Work Phone: [facility] Start: 06-12-2023 ICD Remote F/U Flor Abbott i, MD Work Phone: [facility] Start: 06-07-2023 Telephone encounter [facility] Work Phone: Cardiology Start: 06-05-2023 Follow-up encounter Flor Vitale MD Work Phone: [facility] Start: 06-05-2023 ICD Remote F/U Flor Abbott i, MD Work Phone: [facility] Start: 05-24-2023 Telephone encounter Flor Vitale MD Work Phone: Cardiology Comment on above: Future Appointment ( DCC) Start: 05-19-2023 Follow-up encounter Flor Vitale MD Work Phone: [facility] Start: 05-19-2023 ICD Remote F/U Flor Abbott i, MD Work Phone: [facility] Start: 05-16-2023 Telephone encounter Flor Vitale MD Work Phone: Cardiology Start: 05-12-2023 Follow-up encounter Flor Vitale MD Work Phone: [facility] Start: 05-12-2023 End: 05-12-2023 Orders Only Flor Vitale MD Work Phone: Cardiology Start: 05-12-2023 Patient encounter procedure Flor Vitale MD Work Phone: [facility] Start: 04-26-2023 End: 04-27-2023 ambulatory BRENDA TERRELL II Facility:[facility] Start: 04-26-2023 End: 04-26-2023 ambulatory [facility] Work Phone: Cardiology Comment on above: Event (14 days) Start: 04-26-2023 End: 04-26-2023 Patient encounter procedure Yannick Zuñiga PA-C Work Phone: Cardiology Comment on above: Chronic systolic HF (heart failure) (HCC) (Primary Dx); Dysuria; Frequent PVCs; Chronic combined systolic and diastolic congestive heart failure (HCC); Cardiomyopathy, nonischemic (HCC) Start: 04-19-2023 Telephone encounter Zeina ramirez RN NOC Comment on above: Follow Up Phone Call (RC all clear ) Start: 04-14-2023 ambulatory Mikael Henry [facility] Work Phone: [facility] Start: 04-14-2023 Telephone encounter Cain Higginbotham [employer] A16 Comment on above: Follow Up Phone Call (Non-Urgent:Medication Concerns /) Post Dc Program Call - Needs Attn Transition Of Care ( TCM Pharmacy-Hospital discharge 04/13/23/); Heart Failure Start: 04-07-2023 Follow-up encounter Flor Vitale MD Work Phone: [facility] Start: 04-07-2023 Patient encounter procedure Flor Vitale MD Work Phone: [facility] Start: 04-03-2023 End: 04-05-2023 ambulatory CHETE CARTER-NLIAM Facility:[facility] Start: 03-28-2023 Rx Change Jef little MD Work Phone: [facility] 250 DO Work Phone: Start: 03-24-2023 Follow-up encounter Flor Vitale MD Work Phone: [facility] Start: 03-24-2023 Patient encounter procedure Flor Vitale MD Work Phone: [facility] Start: 03-24-2023 End: 03-27-2023 ambulatory BRENDA B TERRELL II Facility:[facility] Start: 03-23-2023 End: 03-23-2023 ambulatory BRENDA B TERRELL II Facility:[facility] Start: 03-23-2023 End: 03-23-2023 ambulatory BRENDA B TERRELL II Facility:[facility] Start: 03-21-2023 Orders Only Mira Talbert MD Work Phone: Cardiology Comment on above: Heart disease (Prima ry Dx) Start: 03-20-2023 End: 04-13-2023 Evaluation and management of inpatient CHETE CARTER-NLIAM Facility:[facility] Start: 03-20-2023 End: 03-21-2023 [facility] Start: 03-18-2023 ambulatory Facility:[id number] Start: 03-17-2023 ambulatory Facility:[id number] Start: 03-16-2023 ambulatory Facility:[id number] Start: 03-15-2023 ambulatory Facility:[id number] Start: 03-15-2023 End: 03-18-2023 Evaluation and management of inpatient Osiris Mischler Facility:[facility] Start: 03-14-2023 End: 03-15-2023 [facility] Start: 03-07-2023 End: 03-08-2023 ambulatory [facility] Start: 02-23-2023 End: 02-24-2023 ambulatory [facility] Start: 02-20-2023 End: 02-23-2023 [facility] Start: 02-20-2023 End: 02-22-2023 Subsequent hospital visit by physician Phuong Chao [address] Radiology Comment on above: 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; 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 Start: 12-29-2022 End: 12-30-2022 ambulatory GURWINDER TRUONG Facility:[facility] Start: 11-23-2022 End: 11-24-2022 [facility] Start: 11-23-2022 End: 11-23-2022 [facility] Comment on above: LV (left ventricular ) 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 (Primary Dx); manager intermediate (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 Start: 10-26-2022 End: 10-27-2022 [facility] Start: 10-26-2022 End: 10-26-2022 Subsequent hospital visit by physician Rogerio Gruber [facility] Medication Manangement Comment on above: LV (left ventricular ) 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 (Primary Dx); half-way (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 Start: 09-21-2022 End: 09-22-2022 [facility] Start: 09-21-2022 End: 09-21-2022 [facility] Comment on above: LV (left ventricular ) 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 (Primary Dx); half-way (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 Start: 08-26-2022 End: 08-26-2022 Office outpatient visit 15 minutes Shahab Buckley MD Work Phone: [facility] Comment on above: Carotid stenosis, sy mptomatic w/o infarct, right (Primary Dx); Left carotid stenosis Start: 08-24-2022 End: 08-25-2022 [facility] Start: 08-24-2022 End: 08-24-2022 Subsequent [facility] Comment on above: LV (left ventricular ) 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 (Primary Dx); manager intermediate (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 Start: 07-27-2022 End: 07-28-2022 [facility] Start: 07-27-2022 End: 07-27-2022 Subsequent [facility] Comment on above: LV (left ventricular ) 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 (Primary Dx); half-way (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 Start: 06-29-2022 End: 06-30-2022 [facility] Start: 06-01-2022 End: 06-02-2022 [facility] Start: 06-01-2022 End: 06-01-2022 Subsequent hospital visit by physician Rogerio Gruber [facility] Medication Manangement Comment on above: LV (left ventricular ) 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 (Primary Dx); manager intermediate (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 Start: 04-27-2022 End: 04-28-2022 [facility] Start: 04-27-2022 End: 04-27-2022 Subsequent hospital visit by physician Rogerio Gruber [facility] Medication Manangement Comment on above: LV (left ventricular ) 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 (Primary Dx); half-way (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 Start: 03-30-2022 End: 03-31-2022 [facility] Start: 03-30-2022 End: 03-30-2022 Subsequent hospital visit by physician Rogerio Gruber [facility] Medication Manangement Comment on above: LV (left ventricular ) 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 (Primary Dx); manager intermediate (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 Start: 03-16-2022 End: 03-16-2022 Subsequent [facility] Comment on above: LV (left ventricular ) 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 (Primary Dx); half-way (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 Start: 03-02-2022 End: 03-02-2022 Subsequent hospital [facility] Comment on above: LV (left ventricular ) 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 (Primary Dx); manager intermediate (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 Start: 02-22-2022 End: 02-24-2022 Subsequent hospital visit by physician Marion Bell [facility] Comment on above: 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; 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, unspecified vessel or lesion type; Hypertension, unspecified type; Vitamin D deficiency disease; Cardiomyopathy, unspecified type (HCC); SOB (shortness of breath) LV (left ventricular ) 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 (Primary Dx); half-way (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; 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 Comment on above: Carotid stenosis, sy mptomatic w/o infarct, right (Primary Dx); Symptomatic stenosis of right carotid artery Start: 02-03-2022 End: 02-03-2022 Subsequent hospital visit by physician Raffy Richardson [facility] Medication Manangement Comment on above: LV (left ventricular ) 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 (Primary Dx); half-way (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 Start: 01-27-2022 End: 01-29-2022 Subsequent hospital visit by physician Raffy Richardson [facility] Medication Manangement Comment on above: LV (left ventricular ) 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 (Primary Dx); manager intermediate (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 Start: 01-25-2022 Refill Angeles Samano RN [facility] Phys[facility] Comment on above: Medication Refill Start: 01-20-2022 Refill Mary Jane delgado PA-C Work Phone: [facility] Comment on above: Medication Refill Start: 01-20-2022 End: 01-20-2022 Subsequent hospital visit by physician Raffy Richardson [facility] Medication [facility]angement Comment on above: LV (left ventricular ) 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 (Primary Dx); half-way (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 Start: 01-13-2022 End: 01-13-2022 Subsequent hospital visit by physician Raffy Richardson [facility] Medication [facility]angement Comment on above: LV (left ventricular ) 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 (Primary Dx); manager intermediate (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 Start: 01-08-2022 End: 01-10-2022 Subsequent hospital [facility] Comment on above: Left arm pain Start: 01-07-2022 End: 01-07-2022 Emergency department patient visit Lonnie Hart MD Work Phone: [facility] ED Comment on above: Left arm pain (Prima ry Dx) Start: 01-06-2022 End: 01-06-2022 Subsequent hospital visit by physician Raffy Richardson [facility] Medication Manangement Comment on above: LV (left ventricular ) 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 (Primary Dx); half-way (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 Start: 12-28-2021 End: 12-29-2021 Evaluation and management of inpatient Shahab Buckley MD Work Phone: [facility] Surgical Intermediate Start: 12-22-2021 End: 12-22-2021 Subsequent hospital visit by physician Raffy Richardson [facility] Medication Manangement Comment on above: LV (left ventricular ) 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 (Primary Dx); half-way (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 Start: 12-18-2021 Documentation procedure Shahab Buckley MD Work Phone: [facility] Start: 12-14-2021 Admission to [facility] Shahab Buckley MD Work Phone: [facility] Comment on above: Symptomatic stenosis of right carotid artery (Primary Dx) Start: 12-09-2021 End: 12-09-2021 Subsequent hospital [facility] Comment on above: LV (left ventricular ) 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 (Primary Dx); manager intermediate (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 Start: 12-08-2021 End: 12-08-2021 Office outpatient visit 25 minutes Shahab Buckley MD Work Phone: [facility] Comment on above: Symptomatic stenosis of right carotid artery Start: 11-29-2021 Admission to [facility] Shahab Buckley MD Work Phone: [facility] Comment on above: Elevated serum creat inine (Primary Dx); Atherosclerosis of right carotid artery Start: 11-16-2021 End: 11-16-2021 Subsequent hospital visit by physician Raffy Richardson [facility] Comment on above: LV (left ventricular ) 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 (Primary Dx); half-way (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 Start: 10-26-2021 End: 10-28-2021 [facility] Comment on above: Central artery occlu leslee of retina, left Start: 08-10-2021 End: 08-10-2021 [facility] Comment on above: LV (left ventricular ) 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 (Primary Dx); manager intermediate (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 Start: 06-07-2021 End: 06-07-2021 [facility] Comment on above: LV (left ventricular ) 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 (Primary Dx); manager intermediate (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 Start: 04-23-2021 End: 04-23-2021 Subsequent hospital visit by physician Raffy Richardson [facility] [place] [facility] Comment on above: LV (left ventricular ) 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 (Primary Dx); half-way (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 Start: 03-01-2021 End: 03-01-2021 Subsequent hospital visit by physician Lorri Carmen [facility] Work Phone: [facility] [place] [facility] Comment on above: LV (left ventricular ) 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 (Primary Dx); manager intermediate (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 Start: 02-25-2021 End: 02-25-2021 Subsequent hospital visit by physician Jeff Cerda MD Work Phone: [facility] Comment on above: 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; 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 Start: 11-23-2020 End: 11-23-2020 Subsequent hospital visit by physician Ayde Matthews DO Work Phone: ST OR Comment on above: Post-op pain (Primar y Dx) Start: 11-17-2020 End: 11-17-2020 Subsequent hospital visit by physician Raffy Sparks [facility] [place] Medication [facility]angement Comment on above: manager intermediate (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; LV (left ventricular) 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 Start: 11-09-2020 End: 11-14-[address] [facility] Start: 11-09-2020 End: 11-13-2020 Subsequent hospital visit by physician Bina Roberts 1 [facility] Pre-Admit Testing Start: 11-02-2020 End: 11-04-2020 Subsequent hospital visit by physician [facility] Ultrasound Room [facility] Ultrasound Comment on above: Epigastric pain Start: 08-25-2020 End: 08-27-2020 Subsequent hospital visit by physician 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, unspecified vessel or lesion type; Hypertension, unspecified type; Vitamin D deficiency disease; Other specified diabetes mellitus without complication, with long-term current use of insulin (HCC) Start: 08-14-2020 End: 08-14-2020 Subsequent hospital visit by physician Raffy Sparks [facility] Comment on above: manager intermediate (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; LV (left ventricular) 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 Start: 05-14-2020 End: 05-14-2020 Subsequent hospital visit by physician Lorri Carmen Work Phone: [facility] [employer] Medication Manangement Comment on above: half-way (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; LV (left ventricular) 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 Start: 04-02-2020 End: 04-02-2020 Subsequent hospital visit by physician Lorri Carmen Work Phone: [employer] Comment on above: manager intermediate (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; LV (left ventricular) 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 Start: 02-26-2020 End: 02-26-2020 Subsequent hospital visit by physician Jeff [facility] Comment on above: 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; 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, unspecified vessel or lesion type; Hypertension, unspecified type; Vitamin D deficiency disease; Shortness of breath Start: 02-20-2020 End: 02-20-2020 Subsequent hospital visit by physician Lorri Carmen Work Phone: [employer] [facility] Comment on above: half-way (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; LV (left ventricular) 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 Start: 01-21-2020 End: 01-21-2020 Subsequent hospital visit by physician Jeff R[facility] Laboratory Start: 01-09-2020 End: 01-09-2020 Subsequent hospital visit by physician Lorri Carmen Work Phone: [employer] [facility] Comment on above: half-way (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; LV (left ventricular) 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 Start: 10-17-2019 End: 10-17-2019 Subsequent hospital visit by physician Lorri Carmen Work Phone: [employer] [facility] Comment on above: half-way (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; LV (left ventricular) 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 Start: 2019 End: 2019 Subsequent hospital visit by physician Jeff [facility] Laboratory Comment on above: Kidney insufficiency Start: 09-02-2019 End: 09-02-2019 Subsequent hospital visit by physician Jeff Cerda MD Other Phone: [facility] Comment on above: 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; 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, unspecified vessel or lesion type; Hypertension, unspecified type; Vitamin D deficiency disease; Shortness of breath Start: 09-02-2019 End: 09-02-2019 Subsequent hospital visit by physician Raffy Richardson [facility] Medication Manangement Comment on above: manager intermediate (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; LV (left ventricular) 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 Start: 08-19-2019 End: 08-21-2019 Subsequent hospital visit by physician Phuong Gaston [facility] Lab Comment on above: Shortness of breath Cardiomyopathy, unsp ecified type (HCC); Shortness of breath Arrived Start: 08-14-2019 End: 08-14-2019 Subsequent hospital visit by physician Jeff Cerda MD Other Phone: [facility] Laboratory Comment on above: Elevated bilirubin; Calculus of gallbladder without cholecystitis without obstruction Start: 08-12-2019 End: 08-12-2019 Emergency department patient visit Eloina Pat MD Work Phone: [facility] ED Comment on above: Acute on chronic con gestive heart failure, unspecified heart failure type (HCC) (Primary Dx); 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, unspecified vessel or lesion type; Hypertension, unspecified type; Other specified diabetes mellitus without complication, with long-term current use of insulin (HCC); Cardiomyopathy, unspecified type (HCC); Shortness of breath; Elevated bilirubin; Calculus of gallbladder without cholecystitis without obstruction Start: 06-03-2019 End: 06-03-2019 Subsequent hospital visit by physician Raffy Richardson [facility] Comment on above: half-way (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; LV (left ventricular) 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 Start: 04-11-2019 End: 04-11-2019 Subsequent hospital visit by physician Lorri Carmen [facility] Medication Manangement Comment on above: manager intermediate (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; LV (left ventricular) 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 Start: 10-31-2017 [facility] Start: 10-18-2017 End: 10-19-2017 [facility] Start: 10-17-2017 [facility] Start: 09-25-2017 Amb[facility] Start: 09-18-2017 End: 09-19-2017 [facility] Start: 09-18-2017 End: 09-18-2017 Ambulatory Ayde Nicole Work Phone: [facility] Start: 09-06-2017 End: 09-06-2017 Ambulatory Ayde Nicole Facility:[facility] Start: 07-06-2017 End: 07-07-2017 Ambulatory DEFAULT PHYSICIAN Facility:[facility] Procedures Date Procedure Procedure Detail Performing Clinician Start: 10-03-2023 ICD REMOTE CHECK Guzman Vitale MD Work Phone: Start: 09-23-2023 ICD REMOTE CHECK Guzman Vitale MD Work Phone: Start: 09-22-2023 ICD REMOTE CHECK Guzman Vitale MD Work Phone: Start: 09-18-2023 Echocardiography GUZMAN VITALE Start: 09-18-2023 Echo tthrc r-t 2d w/ wom-mode compl spec&colr d Flor Vitale MD Work Phone: Start: 09-18-2023 LVEF TRANSTHORACIC ECHO Flor Vitale MD Work Phone: Start: 09-15-2023 Comprehensive metabo lic panel Frandy Gregg DO Work Phone: Start: 09-14-2023 Assay of lactate Sonia Álvarez MD Work Phone: Start: 09-14-2023 TTE w or wo fol wcon,Doppler Shahab Buckley MD Work Phone: Start: 09-14-2023 Assay of magnesium Vijay Gregg DO Work Phone: Start: 09-14-2023 Cta abdl aorta&bi il iofem w/contrast&postp Shahab Buckley MD Work Phone: Start: 09-14-2023 Dup-scan lxtr art/ar tl bpgs uni/lmtd study Shahab Buckley MD Work Phone: Start: 09-14-2023 Non-invas physiologi c std extremity art 2 level Shahab Buckley MD Work Phone: Start: 09-14-2023 Comprehensive metabo lic panel Patito Álvarez MD Work Phone: Start: 09-13-2023 Assay of lactate Sonia Álvarez MD Work Phone: Start: 09-13-2023 Ecg routine ecg w/le ast 12 lds trcg only w/o i&r Shahab Buckley MD Work Phone: Start: 09-13-2023 C-reactive protein Barbara Álvarez MD Work Phone: Start: 09-13-2023 Comprehensive metabo lic panel Patito Álvarez MD Work Phone: Start: 09-06-2023 Follow-up visit Follow-up JEFF CERDA Start: 07-04-2023 ICD REMOTE CHECK Guzman Vitale [...] MD Work Phone: Start: 03-30-2023 Antibody screen FLOR VITALE Comment on above: Order Comment: Speci men Type: BLOOD SPECIMENOrdering Facility: [facility] Address: [address] [place] [id number] Performed By: #### T SCR ####CC MAIN BLOOD BANKCLIA [id number] [place] [id number] [place] Start: 03-24-2023 ICD CLINIC CHECK Guzman Vitale MD Work Phone: Start: 03-22-2023 Echocardiography GUZMAN VITALE Start: 03-21-2023 Microalbumin [Mass/v olume] in Urine by Test strip Angeles Samano RN Start: 02-20-2023 Radiologic exam ches t 2 views Rafa Nicole MD Work Phone: Start: 01-04-2023 Prothrombin time Histor ical Provider Start: 11-23-2022 Prothrombin time Histor ical Provider Start: 10-26-2022 Prothrombin time Histor ical Provider Start: 09-21-2022 Prothrombin time Histor ical Provider Start: 08-24-2022 Prothrombin time Histor ical Provider Start: 07-27-2022 Prothrombin time Histor ical Provider Start: 06-01-2022 Prothrombin time Histor ical Provider Start: 04-27-2022 Prothrombin time Histor ical Provider Start: 03-30-2022 Prothrombin time Histor ical Provider Start: 03-16-2022 Prothrombin time Histor ical Provider Start: 03-02-2022 Prothrombin time Histor ical Provider Start: 02-22-2022 Radiologic exam ches t 2 views Rafa Nicole MD Work Phone: Start: 02-22-2022 Lipid panel Rafa finn MD Work Phone: Start: 02-22-2022 PATIENT FASTING? Rafa Nicole MD Work Phone: Start: 02-22-2022 Ecg routine ecg w/le ast 12 lds w/i&r Rafa Nicole MD Work Phone: Start: 02-22-2022 End: 02-22-2022 Prothrombin time Historical Provider Start: 02-03-2022 Prothrombin time Histor ical Provider Start: 01-27-2022 Prothrombin time Histor ical Provider Start: 01-20-2022 Prothrombin time Histor ical Provider Start: 01-13-2022 Prothrombin time Histor anitra Platt MD Start: 01-08-2022 Dup-scan xtr veins unilateral/limited study Lonnie Hart MD Work Phone: Start: 01-06-2022 Prothrombin time Histor anitra Platt MD Start: 12-29-2021 TTE w or wo fol wcon,Doppler Sadiq Elizondo MD Work Phone: Start: 12-29-2021 Glucose measurement Puma uBckley MD Work Phone: Start: 12-29-2021 Prothrombin time Susy Hernandez [facility],PharmD Start: 12-28-2021 Glucose measurement Puma Buckley MD [...] Prothrombin time Histor anitra Platt MD Start: 11-16-2021 Prothrombin time Histor anitra Platt [...] ecg w/le ast 12 lds w/i&r Rafa Niocle MD Work Phone: Start: 02-25-2021 Lipid panel Rafa finn MD Work Phone: Start: 02-25-2021 PATIENT FASTING? Rafa Nicole MD Work Phone: Start: 02-25-2021 End: 02-25-2021 Hemoglobin glycosylated a1c Jeff lozano MD Work Phone: Start: 12-29-2020 Prothrombin time Histor anitra Platt MD Start: 11-23-2020 Glucose blood reagent strip Ayde Matthews DO Work Phone: Start: 11-23-2020 CREATININE W/GFR POI NT OF CARE Ayde Matthews DO Work Phone: Start: 11-23-2020 End: 11-23-2020 Gluc bld gluc mntr dev cleared fda spec home use Ayde Matthews DO Work Phone: Start: 11-23-2020 Potassium [Moles/vol ume] in Serum or Plasma Ayde Matthews DO Work Phone: Start: 11-17-2020 Prothrombin time Histor anitra Platt Start: 11-09-2020 Basic metabolic pane l calcium [...] Work Phone: Start: 08-25-2020 Lipid panel Rafa finn Work Phone: Start: 08-25-2020 PATIENT FASTING? Rafa [...] Work Phone: Start: 02-26-2020 Lipid panel Rafa finn Work Phone: Start: 02-26-2020 PATIENT FASTING? Rafa [...] Basic metabolic pane l calcium total Rafa Jess Jac Work Phone: Start: 09-02-2019 Basic metabolic pane [...] Work Phone: Angioplasty of carot id artery Jef Aviles MD Work Phone: Laparoscopic cholecystectomy Jef Aviles MD Work Phone: Placement of stent i n coronary artery Jef Aviles MD Work Phone: Plan of Treatment Date Care Activity Detail Author Start: 09-18-2024 BP Controlled (<130/80) BP Controlled (<130/80) [facility] Start: 09-15-2024 Complete blood count Hemoglobin/Hematocrit [facility] Start: 09-15-2024 Creatinine measurement Serum Creatinine [facility] Start: 07-12-2024 BP Controlled (<130/80) BP Controlled (<130/80) [facility] Start: 07-12-2024 Serum Creatinine Serum Creatinine [facility] Start: 06-27-2024 BP Controlled (<130/80) BP Controlled (<130/80) [facility] Start: 06-16-2024 BP Controlled (<130/80) BP Controlled (<130/80) [facility] Start: 06-16-2024 Serum Creatinine Serum Creatinine [facility] Start: 04-26-2024 BP Controlled (<130/80) BP Controlled (<130/80) [facility] Start: 04-26-2024 Serum Creatinine Serum Creatinine [facility] Start: 04-13-2024 HEMOGLOBIN/HEMATOCRIT HEMOGLOBIN/HEMATOCRIT [facility] Start: 04-13-2024 SERUM CREATININE SERUM CREATININE [facility] Start: 04-07-2024 HEMOGLOBIN/HEMATOCRIT HEMOGLOBIN/HEMATOCRIT [facility] Start: 04-07-2024 SERUM CREATININE SERUM CREATININE [facility] Start: 03-24-2024 HEMOGLOBIN/HEMATOCRIT HEMOGLOBIN/HEMATOCRIT [facility] Start: 03-23-2024 SERUM CREATININE SERUM CREATININE [facility] Start: 03-21-2024 HEMOGLOBIN/HEMATOCRIT HEMOGLOBIN/HEMATOCRIT [facility] Start: 03-21-2024 Hepatitis B screening URINE ALBUMIN:CREATININE RATIO [facility] Start: 03-21-2024 SERUM CREATININE SERUM CREATININE [facility] Start: 03-21-2024 Urine screening for protein Urine Microalbumin [facility] Start: 02-21-2024 GFR test (Diabetes, CKD 3-4, OR last GFR 15-59) GFR test (Diabetes, CKD 3-4, OR last GFR 15-59) [facility] Start: 02-21-2024 Hemoglobin A1c measurement A1C test (Diabetic or Prediabetic) [facility] Start: 02-21-2024 Hepatitis B surface antibody level LDL Cholesterol [facility] Start: 02-21-2024 Lipid panel Lipids [facility] Start: 11-09-2023 End: 12-11-2024 Ultrasound ankle / brachial indices extremity complete Ultrasound ankle / brachial indices extremity complete Vascular Ultrasound Routine PAD (peripheral artery disease) ([facility]) Expected: 11/09/2023, Expires: 12/11/2024 [facility] Work Phone: Comment on above: Expected: 11/09/2023, Expires: Start: 09-21-[address] [facility] Start: 09-21-2023 Hemoglobin A1c/Hemoglobin.total in Blood HBA1C [facility] Start: 09-18-2023 End: 12-18-2023 Basic metabolic 2000 panel - Serum or Plasma BASIC METABOLIC PNL Lab Routine Chronic systolic HF (heart failure) (HCC) Expected: 09/18/2023, Expires: 12/18/2023 [facility] Work Phone: Comment on above: Expected: 09/18/2023, Expires: Start: 09-18-2023 End: 12-18-2023 Natriuretic peptide.B prohormone N-Terminal [Mass/volume] in Serum or Plasma NT PRO BNP Lab Routine Chronic systolic HF (heart failure) ([facility]) Expected: 09/18/2023, Expires: 12/18/2023 [facility] Work Phone: Comment on above: Expected: 09/18/2023, Expires: Start: 09-06-2023 End: 09-06-2023 Patient encounter procedure 09/06/2023 9:30 AM EST Office Visit [facility] [address] [place] [address] Shahab Buckley MD [address] [place] [address] [facility] Start: 08-30-2023 End: 08-30-[address] [facility] Start: 08-07-2023 Advance Directive Discussion Advance Directive Discussion [facility] Start: 07-12-2023 End: 10-11-2023 Comprehensive metabolic 2000 panel - Serum or Plasma COMP METABOLIC PANEL Lab STAT Chronic systolic HF (heart failure) ([facility]) Expected: 07/12/2023, Expires: 10/11/2023 [facility] Work Phone: Comment on above: Expected: 07/12/2023, Expires: Start: 07-12-2023 End: 10-11-2023 Magnesium [Mass/volume] in Serum or Plasma MAGNESIUM BLD Lab STAT Chronic systolic HF (heart failure) ([facility]) Expected: 07/12/2023, Expires: 10/11/2023 [facility] Work Phone: Comment on above: Expected: 07/12/2023, Expires: Start: 07-12-2023 End: 10-11-2023 Natriuretic peptide.B prohormone N-Terminal [Mass/volume] in Serum or Plasma NT PRO BNP Lab STAT Chronic systolic HF (heart failure) (HCC) Expected: 07/12/2023, Expires: 10/11/2023 [facility] Work Phone: Comment on above: Expected: 07/12/2023, Expires: Start: 04-07-2023 Covid-19 Vaccine () Covid-19 Vaccine () [facility] Start: 04-07-[address] [facility] Start: 03-29-2023 End: 03-29-2023 Patient encounter procedure 03/29/2023 Appointment Pharmacy [facility] Start: 03-07-2023 [facility] Start: 02-27-2023 End: 02-27-2023 Patient encounter procedure 02/27/2023 Office Visit Cardiology Rafa Nicole MD [address] [place] [address] [facility] Start: 02-23-2023 End: 02-23-2023 Patient encounter procedure 02/23/2023 Appointment Echocardiography Rafa Nicole MD [address] [place] [address] [facility] Start: 02-22-2023 GFR test (Diabetes, CKD 3-4, OR last GFR 15-59) GFR test (Diabetes, CKD 3-4, OR last GFR 15-59) [facility] Start: 02-22-2023 Hemoglobin A1c measurement A1C test (Diabetic or Prediabetic) [facility] Start: 02-22-2023 Lipid panel Lipids [facility] Start: 02-20-2023 End: 02-20-2023 Patient encounter procedure 02/20/2023 Appointment Echocardiography [facility] Start: 02-15-2023 End: 02-15-2023 Patient encounter procedure 02/15/2023 [facility] Start: 01-04-2023 End: 01-04-2023 Patient encounter procedure 01/04/2023 Appointment [facility]acy [facility] Start: 11-26-2022 Creatinine measurement Creatinine [facility] Start: 11-26-2022 Potassium [Moles/volume] in Serum or Plasma Potassium [facility] Start: 11-23-2022 End: 11-23-2022 Patient encounter procedure 11/23/2022 [facility] Start: 10-26-2022 End: 10-26-2022 Patient encounter procedure 10/26/2022 Appointment Pharmacy [facility] [place] [facility] Start: 09-21-2022 End: 09-21-2022 Patient encounter procedure 09/21/2022 [facility] Start: 2022 ADVANCE DIRECTIVE DISCUSSION ADVANCE DIRECTIVE DISCUSSION [facility] Start: 2022 Fall risk assessment Falls Risk Assessment [facility] Start: 2022 Pneumococcal Vaccine: Age 65+ (1 - PCV) Pneumococcal Vaccine: Age 65+ (1 - PCV) [facility] Start: 2022 Pneumococcal Vaccine: Age 65+ (1 of 1 - PCV) Pneumococcal Vaccine: Age 65+ (1 of 1 - PCV) [facility] Start: 09-06-2022 Hemoglobin A1c measurement A1C test (Diabetic or Prediabetic) [facility] Start: 08-26-2022 End: 08-26-[address] [facility] Start: 08-25-2022 Hemoglobin A1c measurement A1C [facility] Start: 08-24-2022 End: 08-24-2022 Patient encounter procedure 08/24/2022 Appointment Pharmacy [facility] Start: 08-19-2022 End: 08-19-[address] [facility] Start: 06-29-2022 End: 06-29-2022 Patient encounter procedure 06/29/2022 Appointment Pharmacy [facility] [place] [facility] Start: 06-01-2022 End: 06-01-2022 Patient encounter procedure 06/01/2022 Appointment Pharmacy [facility] [place] [facility] Start: 04-27-2022 End: 04-27-2022 Patient encounter procedure 04/27/2022 [facility] Start: 04-07-2022 Influenza vaccination [facility] Start: 03-30-2022 End: 03-30-2022 Patient encounter procedure 03/30/2022 Appointment Pharmacy [facility] Start: 03-16-2022 End: 03-16-2022 Patient encounter procedure 03/16/2022 Appointment Pharmacy [facility] Start: 03-07-2022 Influenza vaccination Flu vaccine (#1) MEGAN SANDERS [facility] Start: 03-06-2022 Hemoglobin A1c measurement A1C [facility] Start: 03-02-2022 End: 03-02-2022 Patient encounter procedure 03/02/2022 [facility] Start: 02-28-2022 End: 02-28-2022 Patient encounter procedure [facility] Start: 02-25-2022 Creatinine measurement Creatinine monitoring [facility] Start: 02-25-2022 Hemoglobin A1c measurement A1C test (Diabetic or Prediabetic) [facility] Start: 02-25-2022 Lipid panel [facility] Start: 02-25-2022 Potassium monitoring Potassium monitoring [facility] Start: 02-25-2022 Screening for malignant neoplasm of colon [facility] Start: 02-11-2022 End: 02-11-[address] [facility] Start: 02-10-2022 End: 02-10-2022 Patient encounter procedure 02/10/2022 Appointment [facility] Start: 02-03-2022 End: 02-03-2022 Patient encounter procedure 02/03/2022 Appointment [facility] Start: 01-29-2022 End: 03-31-2022 Carotid artery doppler assessment Ultrasound doppler carotid Vascular Ultrasound Routine Carotid stenosis, symptomatic w/o infarct, right Expected: 01/29/2022, Expires: 03/31/2022 [facility] Work Phone: Comment on above: Expected: 01/29/2022, Expires: Start: 01-27-2022 End: 01-27-2022 Patient encounter procedure 01/27/2022 Appointment Pharmacy [employer] [facility] Start: 01-20-2022 End: 01-20-2022 Patient encounter procedure 01/20/2022 Appointment [facility] Start: 01-13-2022 End: 01-13-2022 Patient encounter procedure 01/13/20[facility] Start: 01-07-2022 End: 01-07-2023 VL DUP UPPER EXTREMITY VENOUS LEFT VL DUP UPPER EXTREMITY VENOUS LEFT Imaging Routine Left arm pain Expected: 01/07/2022, Expires: 01/07/2023 MEGAN TOMMY [employer] Work Phone: Comment on above: Expected: 01/07/2022, Expires: Start: 01-06-2022 End: 01-06-2022 Patient encounter procedure 01/06/2022 Appointment Pharmacy [facility] Start: 12-28-2021 End: 12-28-2021 Admission to same day surgery center 12/28/2021 Surgery Radiology Shahab Buckley MD [address] [place] [address] TRANSCAROTID ARTERY REVASCULARIZATION [facility] Interventional Radiology Comment on above: TRANSCAROTID ARTERY REVASCULARIZATION Start: 12-28-2021 Subsequent hospital visit by physician 12/28/2021 Hospital Encounter Cardiology Shahba Buckley MD [address] [place] [address] [facility] Procedural Care Unit Start: 12-28-2021 End: 12-28-2021 TRANSCAROTID ARTERY REVASCULARIZATION TRANSCAROTID ARTERY REVASCULARIZATION Symptomatic stenosis of right carotid artery 12/28/2021 12:30 PM EDT [facility] Start: 12-09-2021 End: 12-09-2021 Patient encounter procedure 12/09/2021 Appointment Pharmacy [facility] Start: 12-08-2021 End: 12-08-2021 Patient encounter procedure 12/08/2021 Office Visit Cardiology Shahab Buckley MD [address] [place], [place] [id number] [facility] Start: 12-06-2021 End: 12-06-2021 Patient encounter procedure 12/06/2021 Appointment Radiology Shahab Buckley MD [address] [place] [address] [facility] CT Scan Start: 11-23-2021 Creatinine measurement Creatinine monitoring [employer] Phone: Start: 11-23-2021 Potassium monitoring Potassium monitoring [employer] Phone: Start: 11-16-2021 End: 11-16-2021 Patient encounter procedure 11/16/2021 Appointment Pharmacy [facility] Start: 11-14-2021 COVID-19 Vaccine (4 - Booster for Pfizer series) COVID-19 Vaccine (4 - Booster for Pfizer series) [facility] Start: 11-09-2021 Creatinine measurement Creatinine monitoring [employer] Phone: Start: 11-09-2021 Potassium monitoring Potassium monitoring [employer] Phone: Start: 09-10-2021 COVID-19 Vaccine (4 - Booster for Pfizer series) COVID-19 Vaccine (4 - Booster for Pfizer series) [facility] [id number] [employer] Start: 09-10-2021 COVID-19 VACCINE (4 - Pfizer series) COVID-19 VACCINE (4 - Pfizer series) [facility] Start: 09-06-2021 End: 09-06-2021 Patient encounter procedure 09/06/2021 Appointment Pharmacy [facility] Start: 08-25-2021 Creatinine measurement Creatinine monitoring [employer] Start: 08-25-2021 Lipid panel [facility] [employer] [employer] Start: 08-25-2021 Potassium monitoring Potassium monitoring [employer], [employer] Start: 08-14-2021 Creatinine measurement Creatinine monitoring [employer], [employer] Start: 08-14-2021 HbA1c (Bld) [Mass fraction] A1C test (Diabetic or Prediabetic) [facility] [employer] [facility] [employer] [employer] Start: 08-14-2021 Hemoglobin A1c measurement A1C test (Diabetic or Prediabetic) [employer] Phone: Start: 08-14-2021 Potassium monitoring Potassium monitoring [employer], [employer] Start: 07-19-2021 End: 07-19-2021 Patient encounter procedure 07/19/2021 Appointment Pharmacy [facility] Start: 06-07-2021 End: 06-07-2021 Patient encounter procedure 06/07/2021 Appointment Pharmacy [facility] Start: 05-02-2021 COVID-19 Vaccine (3 - Pfizer booster) COVID-19 Vaccine (3 - Pfizer booster) [facility] Work Phone: Start: 04-19-2021 End: 04-19-2021 Patient encounter procedure 04/19/2021 Appointment Pharmacy [facility] Start: 04-07-2021 Influenza vaccination [facility] Start: 03-01-2021 End: 03-01-2021 Office Visit [facility] Start: 02-25-2021 Creatinine measurement Creatinine monitoring [place], [place] Start: 02-25-2021 Lipid panel Lipid screen [place], [place] Start: 02-25-2021 Potassium monitoring Potassium monitoring [place], [place] Start: 01-29-2021 Microalbumin measurement, urine, quantitative Urine Microalbumin [facility] Start: 01-29-2021 Urine screening for protein [facility] Start: 01-20-2021 Creatinine measurement Creatinine monitoring [place], [place] Start: 01-20-2021 HbA1c (Bld) [Mass fraction] A1C test (Diabetic or Prediabetic) [place], [place] Start: 01-20-2021 Lipid panel Lipid screen [place], [place] Start: 01-20-2021 Potassium monitoring Potassium monitoring [place], [place] Start: 01-19-2021 End: 01-19-2021 Patient encounter procedure 01/19/2021 Appointment Pharmacy [facility] Start: 12-29-2020 End: 12-29-2020 Appointment 12/29/2020 Appointment Pharmacy [facility] Start: 11-23-2020 End: 11-23-2020 Hospital Encounter [facility] [place] Comment on above: XI ROBOTIC LAPAROSCOPIC CHOLECYSTECTOMY, POSSIBLE OPEN Start: 11-18-2020 End: 11-18-2020 Appointment 11/18/2020 Appointment Pre-Admission Testing [facility] PRE ADMIT Start: 11-17-2020 End: 11-17-2020 Appointment [facility] Comment on above: Arrived Start: 11-09-2020 Hospital Encounter 11/09/2020 Hospital Encounter Pre-Admission Testing [facility] Pre-Admit Testing Start: 09-29-2020 End: 09-29-2020 Appointment 09/29/2020 Appointment [facility]acy [facility] Start: 2020 Creatinine measurement Creatinine monitoring [employer] [place] Start: 2020 Creatinine monitoring Creatinine monitoring [employer] [place] , [place] Start: 2020 Potassium monitoring Potassium monitoring [employer] [place], [place] Start: 09-02-2020 Creatinine monitoring Creatinine monitoring [employer] Phone: Start: 09-02-2020 Potassium monitoring Potassium monitoring [employer] Phone: Start: 08-31-2020 End: 08-31-2020 Office Visit 08/31/2020 Office Visit Cardiology Rafa Nicole MD [address] [place] [address] [facility] Start: 08-25-2020 End: 08-25-2020 Appointment 08/25/2020 Appointment Echocardiography [facility] ECHO Start: 08-14-2020 Creatinine monitoring Creatinine monitoring [employer] Phone: Start: 08-14-2020 Potassium monitoring Potassium monitoring [employer] Phone: Start: 08-12-2020 Creatinine monitoring Creatinine monitoring [employer] Phone: Start: 08-12-2020 Potassium monitoring Potassium monitoring [employer] Phone: Start: 06-25-2020 End: 06-25-2020 Appointment 06/25/2020 Appointment [facility]acy [facility] Start: 05-14-2020 End: 05-14-2020 Appointment 05/14/2020 Appointment [facility]acy [facility] Start: 04-07-2020 [facility] [employer] [place] Start: 04-02-2020 End: 04-02-2020 Appointment 04/02/2020 Appointment Pharmacy [employer] [facility] Start: 03-04-2020 Urine screening for protein Diabetic Alb to Cr ratio (uACR) test MEGAN SANDERS [facility] Start: 03-02-2020 End: 03-02-2020 Office Visit 03/02/2020 Office Visit Cardiology Rafa Nicole MD [address] [place] [address] [phone] [facility] Start: 02-27-2020 A1C test (Diabetic or Prediabetic) A1C test (Diabetic or Prediabetic) [place], [place] Start: 02-27-2020 Creatinine monitoring Creatinine monitoring [place], [place] Start: 02-27-2020 HbA1c (Bld) [Mass fraction] A1C test (Diabetic or Prediabetic) [place] Start: 02-27-2020 Lipid panel Lipid screen [place], [place] Start: 02-27-2020 Lipid screen Lipid screen [place] Start: 02-27-2020 Potassium monitoring Potassium monitoring [place], [place] Start: 02-20-2020 End: 02-20-2020 Appointment 02/20/2020 Appointment Pharmacy [facility] Start: 11-28-2019 End: 11-28-2019 Appointment 11/28/2019 Appointment Pharmacy [facility] Start: 11-19-2019 End: 11-19-2019 Office Visit 11/19/2019 Office Visit Cardiology Rafa Nicole MD [address] [place] [address] [facility] Start: 11-05-2019 End: 11-05-2019 Office Visit 11/05/2019 Office Visit Bariatrics Wagner Jose MD [facility] [place] [address] [facility] Invasive Bariatric Surg Start: 10-25-2019 End: 10-25-2019 Office Visit 10/25/2019 Office Visit Cardiology Rafa Nicole MD [address] [place] [address] [facility] Start: 10-24-2019 End: 10-24-2019 Hospital Encounter [facility] [place] Comment on above: LAPAROSCOPIC XI ROBOTIC CHOLECYSTECTOMY Start: 10-16-2019 End: 10-16-2019 Appointment 10/16/2019 Appointment Pharmacy [facility] Start: 09-25-2019 End: 09-25-2019 Hospital Encounter [facility] [place] Comment on above: CHOLECYSTECTOMY LAPAROSCOPIC ROBOTIC Start: 09-02-2019 End: 09-02-2019 Office Visit [facility] Start: 08-19-2019 End: 08-19-2019 Patient encounter procedure [facility] Start: 08-13-2019 End: 09-12-2019 Basic metabolic 2000 panel - Serum or Plasma Basic Metabolic Panel Lab Routine Elevated bilirubin Calculus of gallbladder without cholecystitis without obstruction Expected: 08/13/2019, Expires: 09/12/2019 [employer] Phone: Comment on above: Expected: 08/13/2019, Expires: 0 Start: 08-13-2019 End: 09-12-2019 CBC W Auto Differential panel - Blood CBC WITH AUTO DIFFERENTIAL Lab Routine Elevated bilirubin Calculus of gallbladder without cholecystitis without obstruction Expected: 08/13/2019, Expires: 09/12/2019 [employer] Phone: Comment on above: Expected: 08/13/2019, Expires: 0 Start: 08-13-2019 End: 09-12-2019 Comprehensive metabolic 2000 panel - Serum or Plasma Comprehensive Metabolic Panel Lab Routine Elevated bilirubin Calculus of gallbladder without cholecystitis without obstruction Expected: 08/13/2019, Expires: 09/12/2019 [employer] Phone: Comment on above: Expected: 08/13/2019, Expires: 0 Start: 08-13-2019 End: 09-12-2019 Hepatic function 2000 panel - Serum or Plasma Hepatic Function Panel Lab Routine Elevated bilirubin Calculus of gallbladder without cholecystitis without obstruction Expected: 08/13/2019, Expires: 09/12/2019 [employer] Phone: Comment on above: Expected: 08/13/2019, Expires: 0 Start: 07-17-2019 End: 07-17-2019 Appointment 07/17/2019 Appointment Pharmacy [facility] Start: 06-03-2019 End: 06-03-2019 Appointment [facility] Start: 04-07-2019 Influenza vaccination Flu vaccine (#1) [place], [place] Start: 12-25-2018 Screening for malignant neoplasm of colon [facility] Start: 2017 Hepatitis B Vaccine (1 of 3 - Risk 3-dose series) Hepatitis B Vaccine (1 of 3 - Risk 3-dose series) [facility] Start: 2017 RSV Vaccine (1 - 1-dose 60+ series) RSV Vaccine (1 - 1-dose 60+ series) [facility] Start: 2017 Zoster vacc, sc ZOSTER VACCINE [facility] Work Phone: Start: 04-07-2017 Influenza vaccination SEQUENTIAL INFLUENZA VACCINE (#1) [facility] Work Phone: Start: 2012 PROSTATE CANCER SCREENING DISCUSSION PROSTATE CANCER SCREENING DISCUSSION [facility] Start: 2012 Prostate specific antigen measurement Prostate Cancer Screening Discussion [facility] Start: 2007 Administration of herpes zoster vaccine Zoster Vaccines (1 of 2) [facility] Start: 2007 Colon cancer screen colonoscopy Colon cancer screen colonoscopy [facility] Start: 2007 Screening for malignant neoplasm of colon [facility] Start: 2007 Shingles Vaccine (1 of 2) Shingles Vaccine (1 of 2) [facility] Start: 2007 SHINGRIX VACCINE (1 of 2) SHINGRIX VACCINE (1 of 2) [facility] Start: 2002 COLOGUARD (FIT-DNA) COLOGUARD (FIT-DNA) [facility] Start: 2002 Colonoscopy COLONOSCOPY [facility] Start: 2002 COLORECTAL CANCER SCREENING COLORECTAL CANCER SCREENING [facility] Start: [address] COLONOGRAPHY [facility] Start: 2002 FECAL OCCULT BLOOD FECAL OCCULT BLOOD [facility] Start: 2002 Screening for malignant neoplasm of colon [facility] Start: 2002 SIGMOIDOSCOPY SIGMOIDOSCOPY [facility] Start: 1997 Prostate specific antigen measurement Prostate Specific Antigen (PSA) Screening or Monitoring [facility] Start: 1976 DTaP/Tdap/Td vaccine (1 - Tdap) DTaP/Tdap/Td vaccine (1 - Tdap) [facility] Start: 1976 Hepatitis B vaccine (1 of 3 - Risk 3-dose series) Hepatitis B vaccine (1 of 3 - Risk 3-dose series) [place] Start: 1976 Urine microalbumin profile [facility] Start: 1975 ANNUAL PCP TEAM CHRONIC DISEASE VISIT ANNUAL PCP TEAM CHRONIC DISEASE VISIT [facility] Start: 1975 BP CONTROLLED (<130/80) BP CONTROLLED (<130/80) [facility] Start: 1975 Diabetic microalbuminuria test Diabetic microalbuminuria test [place] Start: 1975 Diabetic retinal exam Diabetic retinal exam [facility] Start: 1975 Glaucoma screening Diabetic retinal exam [facility] Start: 1975 Hepatitis B surface antibody level LDL CHOLESTEROL [facility] Start: [address] [facility] Start: 1975 HEPATITIS C SCREENING HEPATITIS C SCREENING [facility] Start: 1975 HIV SCREENING HIV SCREENING [facility] Start: 1975 Urine screening for protein Diabetic microalbuminuria test [facility] Start: 1973 COVID-19 Vaccine (1) COVID-19 Vaccine (1) [facility] Phone: Start: 1972 HIV screen HIV screen [place], [place] Start: 1972 HIV screening [facility] Start: 1969 COVID-19 Vaccine (1) COVID-19 Vaccine (1) [facility] Phone: Start: 1969 Depression Screen Depression Screen [facility] Start: 1969 Depression screening using PHQ-9 (Patient Health Questionnaire 9) score Depression Screening (PHQ-2/9) [facility] Start: 1968 DTaP/Tdap/Td vaccine (1 - Tdap) DTaP/Tdap/Td vaccine (1 - Tdap) [facility] Phone: Start: 1967 [object Object] Diabetic foot exam [facility] Start: 1967 Diabetic foot examination [facility] Start: 1967 Diabetic retinal exam Diabetic retinal exam [place], [place] Start: [address] [facility] Start: 1967 Hepatitis C antibody, confirmatory test DILATED RETINAL EXAM [facility] Start: 1967 Microalbumin measurement, urine, quantitative Urine Microalbumin [facility] Start: 1967 Ophthalmic examination and evaluation Ophthalmology Exam [facility] Start: 1967 Urine screening for protein Urine Microalbumin [facility] Start: 1963 Pneumococcal 0-64 years Vaccine (1 - PCV) Pneumococcal 0-64 years Vaccine (1 - PCV) [facility] Start: 1963 Pneumococcal 0-64 years Vaccine (1 of 1 - PPSV23) Pneumococcal 0-64 years Vaccine (1 of 1 - PPSV23) [place] Start: 1963 Pneumococcal 0-64 years Vaccine (1 of 2 - PPSV23) Pneumococcal 0-64 years Vaccine (1 of 2 - PPSV23) [facility] Start: 1963 Pneumococcal 65+ years Vaccine (1 - PCV) Pneumococcal 65+ years Vaccine (1 - PCV) [facility] Start: 1963 Pneumococcal Vaccine: 65+ (1 - PCV) Pneumococcal Vaccine: 65+ (1 - PCV) [facility] Start: 1963 Pneumococcal Vaccine: 65+ (1 of 2 - PCV) Pneumococcal Vaccine: 65+ (1 of 2 - PCV) [facility] Start: 1963 Pneumococcal Vaccine: 65+ Years (1 - PCV) Pneumococcal Vaccine: 65+ Years (1 - PCV) [facility] Start: 1963 PNEUMOCOCCAL: 65+ (1 - PCV) PNEUMOCOCCAL: 65+ (1 - PCV) [facility] Start: 1960 History and physical examination, annual for health maintenance Wellness Visit [facility] Start: 1957 Hepatitis C screen Hepatitis C screen [place], [place] Start: 1957 HEPATITIS C SCREENING HEPATITIS C SCREENING [facility] Work Phone: Start: 1957 Hepatitis C screening Hepatitis C screen [facility] Start: 1957 Prostate specific antigen measurement PSA Level [facility] Start: [address] [facility] Work Phone: Start: 1957 Screening for malignant neoplasm of colon [facility] Start: [address] [facility] End: 04-14-2023 Carotid artery doppler assessment Carotid Duplex Vascular Ultrasound Routine Carotid stenosis, symptomatic w/o infarct, right 1 Occurrences starting 02/11/2022 until 04/14/2023 [employer] Work Phone: Comment on above: 1 Occurrences starting 02/11/2022 until 04/14/2023 End: 10-25-2023 Carotid artery doppler assessment Carotid Duplex Vascular Ultrasound Routine Carotid stenosis, symptomatic w/o infarct, right 1 Occurrences starting 08/26/2022 until 10/25/2023 [employer] Phone: Comment on above: 1 Occurrences starting 08/26/2022 until 10/25/2023 End: 08-25-2020 ECHO Complete 2D W Doppler W Color ECHO Complete 2D W Doppler W Color Echocardiography Routine Cardiomyopathy, unspecified type (HCC) SOB (shortness of breath) 1 Occurrences starting 08/25/2020 until 08/25/2020 [employer] Comment on above: 1 Occurrences starting 08/25/2020 until 08/25/2020 End: 08-19-2019 ECHO Complete 2D W Doppler W Color ECHO Complete 2D W Doppler W Color Echocardiography Routine Cardiomyopathy, unspecified type (HCC) Shortness of breath 1 Occurrences starting 08/19/2019 until 08/19/2019 [employer] Phone: Comment on above: 1 Occurrences starting 08/19/2019 until 08/19/2019 EKG 12 Lead [employer] Phone: EKG 12 Lead EKG 12 Lead ECG Routine ICD (implantable cardioverter-defibrillat or) in 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, unspecified vessel or lesion type Hypertension, unspecified type Vitamin D deficiency disease Cardiomyopathy, unspecified type (HCC) SOB (shortness of breath) 02/22/2022 8:53 AM EDT MEGAN SANDERS [employer] Phone: End: 11-23-2020 Glucose [Mass/volume] in Serum or Plasma POCT Glucose Point of Care Testing Routine One Time for 1 Occurrences starting 11/23/2020 until 11/23/2020 [employer] Phone: Comment on above: One Time for 1 Occurrences starting 11/05 until 11/23/2020 End: 04-19-2024 NM PET/CT CARDIAC VIABILITY NM PET/CT CARDIAC VIABILITY Radiology Routine Heart disease 1 Occurrences starting 03/21/2023 until 04/19/2024 [employer] Work Phone: Comment on above: 1 Occurrences starting 03/21/2023 until 04/19/2024 OUTSIDE VENDOR CARDI AC OUTPATIENT EXTENDED RHYTHM RECORDING (WITHOUT TELEMETRY) OUTSIDE VENDOR CARDIAC OUTPATIENT EXTENDED RHYTHM RECORDING (WITHOUT TELEMETRY) Holter Routine Frequent PVCs Ordered: 04/26/2023 [employer] Phone: Comment on above: Ordered: 04/26/2023 Oxygen therapy [[facility] Data Set] Initiate Oxygen Therapy Protocol Respiratory Care Routine Daily until discontinued starting 11/23/2020 [employer] Phone: Comment on above: Daily until discontinued starting 2020 Phase I & II - meter ed glucose Phase I & II - metered glucose Point of Care Testing Routine As Needed until discontinued starting 11/23/2020 [employer] Phone: Comment on above: As Needed until discontinued starting End: 11-23-2020 POCT potassium POCT potassium Point of Care Testing Routine One Time for 1 Occurrences starting 11/23/2020 until 11/23/2020 [employer] Phone: Comment on above: One Time for 1 Occurrences starting 11/05 until 11/23/2020 End: 11-23-2020 POCT Protime-INR POCT Protime-INR Point of Care Testing Routine One Time for 1 Occurrences starting 11/23/2020 until 11/23/2020 [employer] Phone: Comment on above: One Time for 1 Occurrences starting 11/05 until 11/23/2020 End: 08-19-2019 Stress test, lexiscan Stress test, lexiscan Cardiac Services Routine Shortness of breath 1 Occurrences starting 08/19/2019 until 08/19/2019 [employer] Work Phone: Comment on above: 1 Occurrences starting 08/19/2019 until 08/19/2019 Surgical Pathology Surgical Path ology Lab Routine Release Upon Ordering for 1 Occurrences starting 11/23/2020 [employer] Work Phone: Comment on above: Release Upon Ordering for 1 Occurrences starting 11/23/2020 UA DIP B/O UA DIP B/O Lab R outine Dysuria Ordered: 04/26/2023 [facility] Work Phone: Comment on above: Ordered: 04/26/2023 XR Chest 1 View XR Chest 1 View Imaging STAT 12/28/2021 3:[address] [facility] Work Phone: [facility] Immunizations Immunization Date Immunization Notes Care Provider Fa [facility] 07-16-2021 COVID-19 original vaccine, age 12+ yr, monovalent ([id number] - PURPLE TOP) Mira Talbert MD Work Phone: [facility] Work Phone: 06-06-2017 influenza, seasonal, injectable, preservative free Mira Talbert MD Work Phone: [facility] Work Phone: 06-06-2017 seasonal influenza, intradermal, preservative free Jeff Cerda MD Work Phone: [facility] 06-06-2017 influenza virus vaccine, unspecified formulation Zeina Roca RN [facility] Payers Date Payer Category Payer Self-pay 2022 Medicare [id number] 2022 Medicare MEDICARE MEDICAR E PART A [id number] 2022-Present [phone] CGS [id number] PART A CLAIMS [address] [address] [place] [address] [id number] 2017 Unknown 2014 Unknown xxxxxxxxxxxx [id number] 2014 Unknown [employer] M [employer] [address] [id number] 2014-Present [phone] [address] [place] [address] [id number] 1959 Unknown [id number] 1957 Unknown [id number] 1957 Unknown [id number] 1957 Unknown [id number] 1957 Unknown [id number] 1957 Unknown [id number] 1957 Unknown [id number] 1957 Unknown [id number] 2.16.840.1.662646.3.579.2.356 1955 Unknown [id number] 2.16.840.1.443014.3.579.2.174 1957 Unknown [id number] 2.16.840.1.222915.3.579.2.174 1957 Unknown [id number] 2.16.840.1.128586.3.579.2.174 1957 Unknown [id number] 2.16.840.1.336911.3.579.2.174 1957 Unknown [id number] 2.16.840.1.464034.3.579.2.174 1957 Unknown [id number] 2.16.840.1.758261.3.579.2.174 1957 Unknown [id number] 2.16.840.1.557249.3.579.2. 1957 Unknown [id number] 2.16.840.1.837963.3.579.2. 1957 Unknown [id number] 2.16.840.1.624723.3.579.2. 1957 Unknown [id number] 2.16.840.1.201368.3.579.2.174 1957 Unknown [id number] 2.16.840.1.222707.3.579.2. 1957 Unknown [id number] 2.16.840.1.978161.3.579.2.174 1957 Unknown [id number] 2.16.840.1.160553.3.579.2.174 1957 Unknown [id number] 2.16.840.1.887268.3.579.2.174 1957 Unknown [id number] 2.16.840.1.123419.3.579.2. 1957 Unknown [id number] 2.16.840.1.781569.3.579.2.174 1957 Unknown [id number] 2.16.840.1.394927.3.579.2. 1957 Unknown [id number] 2.16.840.1.816628.3.579.2.174 1957 Unknown [id number] 2.16.840.1.522905.3.579.2.174 1957 Unknown [id number] 2.16.840.1.912834.3.579.2.903 1957 Unknown [id number] 2.16.840.1.698494.3.579.2.903 1957 Unknown [id number] 2.16.840.1.949676.3.579.2.903 1957 Unknown [id number] 2.16.840.1.195923.3.579.2.903 Unknown [id number] 2.16.840.1.102171.3.579.2.531 Unknown [id number] 2.16.840.1.385450.3.579.2.531 Social History Date Type Detail Facility Start: 09-18-2017 Tobacco smoking status TXIS Unknown if ever smoked [facility] Work Phone: Start: 1955 Sex Assigned At Not on file [facility] Work Phone: Start: 09-02-2019 End: 12-28-2021 Tobacco smoking status NHIS Never smoker [employer] Start: 09-02-2019 End: 02-28-2022 Alcohol intake Current non-drinker of alcohol (finding) [employer] Phone: Start: 10-01-2019 End: 12-28-2021 Tobacco use and exposure Never used [employer] Start: 03-04-2019 End: 10-03-2023 Alcohol intake No [employer] Start: 11-16-2021 End: 08-26-2022 Exposure to SARS-CoV-2 (event) Not sure [employer] Phone: Start: 11-27-2021 End: 09-13-2023 Alcohol intake Current drinker of alcohol (finding) [facility] Start: 11-27-2021 End: 10-03-[address] [facility] Start: 12-08-2021 Gender identity Identifies as male gender (finding) [facility] Start: 12-08-2021 Sexual orientation Heterosexual (finding) [facility] National Score (1-10 0), lower number is lower risk 67 [facility] Has the [place], or [employer] threatened to shut off services in your home in past 12Mo No [facility] (I/We) worried wheth er (my/our) food would run out before (I/we) got money to buy more. Never true [facility] Start: 09-18-2023 Alcohol intake Lifetime non-drinker (finding) [facility] Are you now , , , , never or living with a partner? [facility] How often to you hav e a drink containing alcohol? Never [facility] Do you feel stress - tense, restless, nervous, or anxious, or unable to sleep at night because your mind is troubled all the time - these days [OSQ] Only a little [facility] Start: 10-04-2023 Alcohol intake Ex-drinker (finding) [facility] Medical Equipment Procedure Code Equipment Code Equipment Origin al Text Equipment Identifier Dates Zinactive Use Cl ip Int L Polymer Luisana Lig Hem O Luisana [id number] Start: 11-23-2020 Zinactive Use Cl ip Int L Polymer Luisana Lig Hem O Luisana [id number] Start: 11-23-2020 Clip Int L Polym er Luisana Lig Hem O Luisana [id number] Start: 11-23-2020 Clip Int L Polym er Luisana Lig Hem O Luisana [id number] Start: 11-23-2020 Stent 9 X 30mm Transcarotid Enroute - Sn/A [id number])N/A, [id number] [facility] Start: 12-28-2021 [id number] Start: 04-13-2023 End: 07-02-2024 Comment on above: Use with pen to admi nister insulin three times daily. Closure 6/7fr [employer] W/Extra Regulator Assembler Min Order 10 - [id number] FDA Start: 10-03-2023 Stent 6.00 X 60 130cm Terrie Morataya - [id number], [id number] FDA Start: 10-03-2023 Comment on above: Description: SFA Clinical Notes 08-12-2019 to 09-19-2023 Jeff Cerda MD - 09/19/2023 10:14 AM Luc Lerma MD - 09/18/2023 3:45 PM Stella Nicolas CNP - 09/15/2023 12:14 PM ESTDischarge InstructionsPatient Instructions Note Date & Type Note Facility 09-19-2023 History of Present illness Narrative Diagnoses and all orders for this visit: Pulmonary hypertension ([facility]) Reviewed an outside echocardiogram. I updated his problem list with the pulmonary hypertension. documented in this encounter [facility] 09-18-2023 Note [facility] 09-18-2023 History of Present illness Narrative Images from the original note were not included. ANTENNA MACHINE OPERATOR-HF Clinic OUTPATIENT VISIT DATE September 18, 2023 OUTPATIENT VISIT TYPE Established Patient PRIMARY CARE PHYSICIAN: Jeff Cerda MD [address] [place] [phone] CC: ANTENNA MACHINE OPERATOR-CHF clinic visit HPI: Pleasant 68-year-old male with chronic systolic heart failure/nonischemic cardiomyopathy status post ICD with upgrade to ANTENNA MACHINE OPERATOR-D and severe CKD presents for ANTENNA MACHINE OPERATOR/CHF clinic visit. Gregg underwent ANTENNA MACHINE OPERATOR-D implant earlier in 2022. Prior to implant his ejection fraction was 13%. He does feel somewhat better with pacing. He is less short of breath and has a bit more energy. His device is well-healed. Gregg has persistent atrial fibrillation. He was cardioverted only to have early recurrence of atrial fibrillation. He has remained in atrial fibrillation. He has never been on antiarrhythmic. He takes Eliquis and has not missed doses. He was supposed to see an pack worker supervisor but that has not materialized. PAST MEDICAL HISTORY Diagnosis Date CAD (coronary artery disease) CKD (chronic kidney disease) stage 3, GFR 30-59 ml/min ([facility]) CVA (cerebral vascular accident) ([facility]) Diabetes type II ([facility]) Essential hypertension Ischemic cardiomyopathy LV (left ventricular) 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 PAST SURGICAL HISTORY Procedure Laterality Date ANTENNA MACHINE OPERATOR-D IMPLANT ICD IMPLANT SINGLE CHAMBER PCI/STENT SOCIAL HISTORY No family history on file. ALLERGIES: ALLERGIES No Known Allergies CURRENT MEDICATIONS: apixaban (ELIQUIS) 5 mg tab(s) Take 1 tablet by mouth two times a day. metoprolol succinate ER (TOPROL XL) 25 mg 24 hr tablet Take 1 tablet by mouth two times a day. sacubitril-valsartan (ENTRESTO) 49-51 mg tablet Take 1 [...] pen to administer insulin three times daily. atorvastatin (LIPITOR) 80 mg tablet Take 1 tablet by mouth once daily. clopidogrel (PLAVIX) 75 mg tablet Take 1 tablet by mouth once daily. DULoxetine (CYMBALTA) 20 mg capsule Take 1 capsule by mouth once daily. gabapentin (NEURONTIN) 300 mg capsule Take 300 mg by mouth twice daily. PHYSICAL EXAMINATION: BP 114/72 Pulse 69 Ht 180.3 cm (5' 11 ) Wt 103.4 kg (228 lb) BMI 31.80 kg/m General: Well appearing, in [...] time, alert, cooperative, gait coordinated. CARDIOVASCULAR MEDICINE TESTING COMPLETE BLOOD COUNT WBC (k/uL) Date Value 04/13/2023 6.71 04/12/2023 7.66 04/11/2023 7.97 RBC (m/uL) Date Value 04/13/2023 4.34 04/12/2023 4.83 04/11/2023 4.81 Hemoglobin (g/dL) Date Value 04/13/2023 10.4 04/12/2023 11.6 04/11/2023 11.5 Hematocrit (%) Date Value 04/13/2023 33.9 04/12/2023 38.2 04/11/2023 37.9 MCV (fL) Date Value 04/13/2023 78.1 04/12/2023 79.1 04/11/2023 78.8 Platelet Count (k/uL) Date Value 04/13/2023 242 04/12/2023 289 04/11/2023 320 BASIC METABOLIC PANEL Sodium (mmol/L) Date Value 07/12/2023 139 06/16/2023 137 04/26/2023 135 Potassium (mmol/L) Date Value 07/12/2023 3.9 06/16/2023 4.3 04/26/2023 4.6 Chloride (mmol/L) Date Value 07/12/2023 98 06/16/2023 98 04/26/2023 96 CO2 (mmol/L) Date Value 07/12/2023 29 06/16/2023 25 04/26/2023 24 BUN (mg/dL) Date Value 07/12/2023 47 06/16/2023 59 04/26/2023 77 Creatinine (mg/dL) Date Value 07/12/2023 1.95 06/16/2023 2.00 04/26/2023 2.07 Calcium, Total (mg/dL) Date Value 07/12/2023 9.8 06/16/2023 10.2 04/26/2023 9.8 Magnesium (mg/dL) Date Value 07/12/2023 2.4 04/13/2023 2.6 04/12/2023 2.9 Glucose (mg/dL) Date Value 07/12/2023 177 06/16/2023 216 04/26/2023 100 Estimated Creatinine Clearance: 45.6 mL/min (A) (based on SCr of 1.95 mg/dL (H)). LIVER FUNCTION PANEL Protein, Total (g/dL) Date Value 07/12/2023 7.5 04/13/2023 6.0 04/12/2023 7.1 Albumin (g/dL) Date Value 07/12/2023 3.9 04/13/2023 3.2 04/12/2023 3.9 Alkaline Phosphatase (U/L) Date Value 07/12/2023 182 04/13/2023 162 04/12/2023 187 Bilirubin, Total (mg/dL) Date Value 07/12/2023 1.2 04/13/2023 0.9 04/12/2023 1.1 AST (U/L) Date Value 07/12/2023 32 04/13/2023 42 04/12/2023 55 ALT (U/L) Date Value 07/12/2023 47 04/13/2023 45 04/12/2023 52 LD (U/L) Date Value 03/21/2023 265 INR (no units) Date Value 04/08/2023 1.2 03/28/2023 1.6 03/27/2023 2.9 INR (POCT) (no units) Date Value 03/28/2023 1.8 03/28/2023 1.8 LIPID PANELNo results found for: CHOL , TG , HDL , LDL CARDIAC BIOMARKERS NT Pro BNP (pg/mL) Date Value 07/12/2023 4,783 04/26/2023 6,843 04/10/2023 5,066 OTHER BIOMARKERS TSH (mIU/L) Date Value 03/21/2023 3.650 Hemoglobin A1C (%) Date Value 03/21/2023 7.2 Antibody Screen (no units) Date Value 03/30/2023 Negative URINALYSIS Specific [place], Ur (no units) Date Value 03/21/2023 1.009 Glucose, Urine (no units) Date Value 03/21/2023 Negative Bilirubin, Urine (no units) Date Value 03/21/2023 Negative Ketones, Urine (no units) Date Value 03/21/2023 Negative Hemoglobin/Blood,Ur (no units) Date Value 03/21/2023 Negative Protein, Urine (no units) Date Value 03/21/2023 Negative Nitrites (no units) Date Value 03/21/2023 Negative WBC, Urine (no units) Date Value 03/21/2023 0-5 /HPF IMMUNOSUPRESSIONNo results found for: FK506 , CSA , RAPA INFECTIOUS DISEASESNo results found for: HIVSCN , CMVIGGAB , IGG ECHOCARDIOGRAM LV Ejection Fraction (%) Date Value 09/18/2023 20 03/22/2023 13 I have personally reviewed the Laboratory Testing. Last ECHO Result Conclusion ECHO Collected: 09/18/2023 1:52 PM (Final result) Impression: CONCLUSIONS: - Exam indication: Initial evaluation for ANTENNA MACHINE OPERATOR device optimization after implantation - The left ventricle is normal in size. There is concentric left ventricular hypertrophy. Left ventricular systolic function is severely decreased. EF = 20 5% (visual est.) Definity contrast used for endocardial border detection. Left ventricular diastolic function was not evaluated due to AF. - The right ventricle is normal in size. Right ventricular systolic function is moderately decreased. - The left atrial cavity is dilated. - The right atrial cavity is dilated. - Prior RVSP of 44mmHg. - Estimated right ventricular systolic pressure is 42 mmHg consistent with mild pulmonary hypertension. Estimated right atrial pressure is 8 mmHg based on IVC assessment. - Mobile echodensity off pacer wire best seen in (clips 15-18, 35 and 36). - Exam was compared with the prior echocardiographic exam performed on 03/22/2023. S/p ICD and Cardioversion. No significant change side by side comparison of LV function. * * * Final * * * Last EKG Result Conclusion ECG COMPLETE Collected: 06/16/2023 12:07 PM (Preliminary result) Impression: ATRIAL-SENSED VENTRICULAR-PACED RHYTHM WITH PREMATURE SUPRAVENTRICULAR COMPLEXES ABNORMAL ECG Cognition testing Mini-cog: Total score 5/5 [Clock draw 2/2, Word recall 3/3] [A score of 2 or below suggests cognitive impairment] Functionality testing Six-minute walk: 1070 ft [<1200 ft is abnormal] Frailty testing Regulator Assembler strength: Average score 27 [22, 30, 28] Gait speed: 0.96 m/s [Individual times (s) 4.94, 5.06, 5.69] Timed up and go test: 11.05 seconds [>12 seconds suggests increased risk of falling and frailty] SOF frailty index: 2 [a score of 2 or more suggests frailty] Quality of life EQ-5D: Mobility 2, Self-care 1, Usual activities 1, Pain/discomfort 1, Anxiety/depression 1. Visual analogue scale 20 ANTENNA MACHINE OPERATOR Implant Regret Scale Patient asked to reflect on how strongly they agreed or disagreed with these statements from 1 (strongly agree) to 5 (strongly disagree) pertaining to their ANTENNA MACHINE OPERATOR implant and/or upgrade. It was the right decision 1, I regret the choice that was made 4, I would go for the same choice if I had to do it over again 1, the choice did me a lot of harm 4, the decision was a witt one 1 . 09/18/2023 ECHO - The left ventricle is normal in size. There is concentric left ventricular hypertrophy. Left ventricular systolic function is severely decreased. EF = 20 5% (visual est.) Definity contrast used for endocardial border detection. Left ventricular diastolic function was not evaluated due to AF. - The right ventricle is normal in size. Right ventricular systolic function is moderately decreased. - The left atrial cavity is dilated. - The right atrial cavity is dilated. - Prior RVSP of 44mmHg. - Estimated right ventricular systolic pressure is 42 mmHg consistent with mild pulmonary hypertension. Estimated right atrial pressure is 8 mmHg based on IVC assessment. - Mobile echodensity off pacer wire best seen in (clips 15-18, 35 and 36). - Exam was compared with the prior echocardiographic exam performed on 03/22/2023. S/p ICD and Cardioversion. No significant change side by side comparison of LV function. IMPRESSION Gregg Foster is a 68 year old White male who comes to [facility] for evaluation and management of Heart Failure. The patient has been referred by No ref. provider found. Gregg Foster has a past medical history of CAD (coronary artery disease), CKD (chronic kidney disease) stage 3, GFR 30-59 ml/min ([facility]), CVA (cerebral vascular accident) ([facility]), Diabetes type II ([facility]), Essential hypertension, Ischemic cardiomyopathy, and LV (left ventricular) 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. The patient has a past surgical history that includes PCI/Stent; ICD Implant Single Chamber; and ANTENNA MACHINE OPERATOR-D Implant. The patient also does not have any pertinent problems on file.. The primary encounter diagnosis was Cardiomyopathy, nonischemic ([facility]). Diagnoses of Chronic systolic HF (heart failure) ([facility]), Coronary artery disease involving [place] coronary artery of [place] heart without angina pectoris, Atrial fibrillation, chronic ([facility]), Paroxysmal atrial fibrillation ([facility]), and Frequent PVCs were also pertinent to this visit. NYHA Functional Class: II Stage: C heart failure re specific medications (list current, note updates or changes, note prior intolerance): BB: Metoprolol 25mg BID ACEI/ARB/ARNI: Sacubitril-valsartan 49-51mg BID MRA: * SGLT2: Empagliflozin 10mg daily Diuretic: Torsemide 80mg BID Digoxin: * Vasodilators: * Anti-arrhythmics: * Ivabradine: * Other anti-HTN: * PLAN AND RECOMMENDATIONS: I reviewed the coronary sinus venogram, cxr, device check, echo, and ecg. Device check performed by me in clinic today: Battery 8 years Biventricular pacing 89% Atrial fibrillation underlying rhythm LV threshold pull 1-2 0.8 and 0.5 RV threshold 0.8 and 0.4 R waves 11.9 QLV 120 ms ANTENNA MACHINE OPERATOR: Patient is a responder as defined by an improvement in EF at least greater than 5% status post ANTENNA MACHINE OPERATOR (pre-ANTENNA MACHINE OPERATOR echo: 13% 128/111, post-ANTENNA MACHINE OPERATOR echo: 20%). ECG done prior to ANTENNA MACHINE OPERATOR implantation showed IVCD pattern with a QRS of 172 ms, and ECG done following ANTENNA MACHINE OPERATOR implantation showed biventricular paced pattern QRS 172 ms. Lead position on chest xray is mid and posterolateral. Device interrogation done today shows normal device function. QLV 120 ms. Gregg does feel better with biventricular pacing. He has more energy and less shortness of breath. His ejection fraction has improved. The issue is that he has persistent atrial fibrillation. He was cardioverted only to have early recurrence. He has significant CKD. Ablation versus amiodarone could be next options. He has seen Dr. Mcdermott on the consult service originally. I will get him a follow-up with Dr. Vitale to address his atrial fibrillation. Continue Eliquis. He is rate controlled. HF management: No changes to medications. Return to see Dr. Gomes on 01/17/2024 with a stress echo metabolic. -- Plan formulated by Dr. Zacarias and Dr. Mcduffie. The majority of the visit was spent counseling and/or coordinating care for the patient. Zedq-bp-flux time was 45 minutes. We discussed natural history of disease, current treatment options, future potential treatment options. We discussed diet, exercise, other non-medical management as above. documented in this encounter [facility] 09-15-2023 Hospital course Narrative [facility] [place] [facility] Gregg Foster Admitted: 09/13/2023 Discharge Date: 09/15/23 PCP Handoff Recommended Outpatient Testing Will be following with Vascular - Dr Buckley Results Pending At Discharge none Clinical Summary Critical limb ischemia PAD CT angio of the lower extremity reviewed and showed multifocal anterior tibial stenosis, proximal posterior tibial stenosis, moderate to severe SFA Vascular surgery on board, appreciate recommendation Discontinue heparin drip for now Start the patient back on oral anticoagulation Will discharge home to continue following with Dr Buckley as out pt per his note. MIKAL on top of CKD stage IIIb Baseline creatinine between 1.8 and 2.0 On admission patient creatinine 2.5 Continue to monitor the patient and get dressed pt received contrast and was given IV fluids Creatinine 2.45 Afib Start the patient on apixaban twice daily home dose Home metoprol CHF Home toprol entresto and torsimide Cardiology on board, appreciate recommendation No fluid overload this am; on room air Ok to discharge CAD Home statin Anxiety Cymbalta Discharge Medications Discharge Medications Medications To Continue Details allopurinoL 100 MG tablet Commonly known as: ZYLOPRIM Take 1 (one) tablet (100 mg total) by mouth daily 1/2 tablet one time daily . apixaban 5 mg Tab Commonly known as: ELIQUIS Take 1 (one) tablet (5 mg total) by mouth 2 (two) times a day . atorvastatin 80 MG tablet Commonly known as: LIPITOR TAKE 1 TABLET BY MOUTH DAILY . Quantity: 30 tablet cholecalciferol (vitamin D3) 1,000 unit tablet Take 2 (two) tablets (2,000 Units total) by mouth daily . clopidogreL 75 mg tablet Commonly known as: PLAVIX TAKE 1 TABLET BY MOUTH EVERY DAY Quantity: 30 tablet doxycycline 50 MG tablet Commonly known as: ADOXA Take 1 (one) tablet (50 mg total) by mouth 2 (two) times a day . DULoxetine 20 MG capsule Commonly known as: CYMBALTA TAKE 1 CAPSULE BY MOUTH EVERY DAY FOR 30 DAYS gabapentin 300 MG capsule Commonly known as: NEURONTIN Take 1 (one) capsule (300 mg total) by mouth every 8 (eight) hours (Days supply per fill: 4) . Quantity: 90 capsule HumaLOG KwikPen Insulin 200 unit/mL (3 mL) Inpn Generic drug: insulin lispro INJECT 24 UNITS UNDER THE SKIN IN THE MORNING, 24 UNITS AT NOON, 24 UNITS IN THE EVENING WITH MEALS insulin glargine 100 unit/mL injection Commonly known as: LANTUS Inject 30 (thirty) Units under the skin every morning . Jardiance 10 mg Tab Generic drug: empagliflozin Take 1 (one) tablet (10 mg total) by mouth daily . metoprolol succinate 25 MG 24 hr tablet Commonly known as: TOPROL-XL Take 1 (one) tablet (25 mg total) by mouth 2 (two) times a day . sacubitriL-valsartan 49-51 mg per tablet Commonly known as: ENTRESTO Take 1 (one) tablet by mouth 2 (two) times a day . torsemide 20 MG tablet Commonly known as: DEMADEX Take 4 (four) tablets (80 mg total) by mouth 2 (two) times a day . Physician(s) Follow Up: No follow-up provider specified. Condition at Discharge: Good Disposition: Home I reviewed discharge recommendations with the patient in person. Patient instructions, including activity, were given to the patient/family at discharge. On day of discharge I saw Gregg Foster and spent: > 30 minutes on discharge. Completed by: Stella Rankin CNP on 09/15/23, 12:14 PM documented in this encounter [facility] 09-15-2023 Hospital Discharge instructions Padmini Pina RN - 09/15/2023 9:55 AM EST Heart Failure Education Please weigh yourself every morning, after using the restroom and before eating. Have on the same amount of clothing each time and place your scale on a hard, flat surface. Check your blood pressure and heart rate 1-2 hours after taking your morning medications. Eating a diet high in sodium (salt) is likely to cause you to retain fluid (swell up) and can make you more short of breath. Avoid the use of a salt shaker and avoid foods that are very high in salt (more than 600 mg per serving). Quit smoking, if you smoke. Avoid or limit alcohol and caffeine. Read your food labels, the recommendation is for less than 2,000 mg of sodium per day. Don't over drink fluids. You should have about 2 liters of fluid per day (8-8oz cups or 64 oz). Less can make you dehydrated and more can make you retain fluid (swell). Tell your doctor right away if: You gain three or more pounds in a day or so You see swelling in your feet, ankles or other parts of your body It s hard to breathe You can t do what you could do the day before If you are not able to get your medications Other ways to tell that your heart might not be working the way it should be include: Coughing up pinkish, blood-tinged mucus Confusion, difficulty thinking, dizziness or lightheadedness Changes in your eating habits or appetite It s hard to breathe Contact your Cardiology team if you have any questions or concerns. Bring a log of your daily weights, blood pressures, and heart rate readings to your follow up appointments. documented in this encounter [facility] 09-14-2023 Note Formatting of this n ote might be different from the original. Problem: Actual or potential alteration in health Goal: Absence of healthcare acquired conditions Outcome: Partially Met Goal: Knowledge of Interdisciplinary Plan of Care Outcome: Partially Met Goal: Knowledge of Enviroment Outcome: Partially Met Problem: Pressure Ulcer - Risk of Goal: Absence of pressure ulcer Outcome: Partially Met Problem: Falls, Risk of Goal: Absence of falls Outcome: Partially Met [facility] 09-14-2023 Miscellaneous Notes Problem: Actual or potential alteration in health Goal: Absence of healthcare acquired conditions Outcome: Partially Met Goal: Knowledge of Interdisciplinary Plan of Care Outcome: Partially Met Goal: Knowledge of Enviroment Outcome: Partially Met Problem: Pressure Ulcer - Risk of Goal: Absence of pressure ulcer Outcome: Partially Met Problem: Falls, Risk of Goal: Absence of falls Outcome: Partially Met Problem: Actual or potential alteration in health Goal: Absence of healthcare acquired conditions Outcome: Partially Met Goal: Knowledge of Interdisciplinary Plan of Care Outcome: Partially Met Goal: Knowledge of Enviroment Outcome: Partially Met POC REVIEWED, CT ANGIOGRAM ABD AORTA LOWER AND ECHO TODAY Problem: Actual or potential alteration in health Goal: Absence of healthcare acquired conditions Outcome: Partially Met Goal: Knowledge of Interdisciplinary Plan of Care Outcome: Partially Met Goal: Knowledge of Enviroment Outcome: Partially Met Problem: Actual or potential alteration in health Goal: Absence of healthcare acquired conditions Outcome: Partially Met Goal: Knowledge of Interdisciplinary Plan of Care Outcome: Partially Met Goal: Knowledge of Enviroment Outcome: Partially Met Attempted to call number given by office, no answer, voicemail box not set up. Will attempt again. documented in this encounter [facility] 09-14-2023 Note Formatting of this n ote might be different from the original. Problem: Actual or potential alteration in health Goal: Absence of healthcare acquired conditions Outcome: Partially Met Goal: Knowledge of Interdisciplinary Plan of Care Outcome: Partially Met Goal: Knowledge of Enviroment Outcome: Partially Met [facility] 09-14-2023 History of Present illness Narrative I have reviewed the CT angiogram in detail. There does not appear to be significant suprainguinal occlusive disease which is hemodynamically significant. There is a superficial femoral artery and popliteal artery occlusive disease and some anterior tibial artery occlusive disease that is apparent on his CT angiogram. Because of his decreased cardiac output the tibial detail is not ideal. I think that I can increase his perfusion to the ulcers that are nonhealing with angiography and balloon angioplasty. I would cannulate the contralateral side and do as much as possible. If the patient has challenging tibial disease I can do antegrade cannulation of the ipsilateral side or even retrograde cannulation of one of the pedal vessels. In reviewing the CT angiogram I think that I can complete the procedure as a same-day admission and would follow him afterwards to make sure that the contrast and hydration did not cause congestive heart failure. I would recommend that he stay overnight and have his renal function checked in the morning. If there is no signs of congestive heart failure he can be discharged. My office staff will arrange in the next 7 to 10 days to readmit him as a same-day admission and I will once again asked the hospitalist service and cardiology to follow him with me since he is so frail from a cardiac point of view. Recommendation: Discharge him in the morning if his renal function is stable and there is no signs of congestive heart failure. [facility] [place] Assessment and Plan Gregg Foster is a 68 y.o. male patient of Jeff Cerda MD with history of critical limb ischemia, chf, diabetes presented to [facility] with plan for angiogram . Critical limb ischemia PAD CT angio of the lower extremity reviewed and showed multifocal anterior tibial stenosis, proximal posterior tibial stenosis, moderate to severe SFA Vascular surgery on board, appreciate recommendation Discontinue heparin drip for now Start the patient back on oral anticoagulation Monitor overnight for creatinine and renal function possible discharge tomorrow morning MIKAL on top of CKD stage IIIb Baseline creatinine between 1.8 and 2.0 On admission patient creatinine 2.5 Continue to monitor the patient and get dressed Afib Start the patient on apixaban twice daily home dose Home metoprol CHF Home toprol entresto and torsimide Cardiology on board, appreciate recommendation CAD Home statin Anxiety Cymbalta Discharge Planning Medically Stable for Discharge Date: 09/15/2019 Patient requires continued hospitalization due to: Monitoring kidney function and vascular surgery consult Discharge Location: Home Quality Measures DVT Prophylaxis: eliquis [place] Catheter: absent Code Status full code Primary Contact Information Subjective Patient was seen and examined today morning at bedside. No acute overnight events. No new complaint. Patient was sitting in his bed comfortably NAD. I was able to answer all his questions at bedside and I was able to discuss with him treatment plan. Objective BP 123/77 Pulse 81 Temp 97.5 F (36.4 C) (Oral) Resp 16 Ht 5' 11 Wt 105.2 kg (232 lb) SpO2 92% BMI 32.36 kg/m Physical Examination General Appearance: alert; well appearing; in no acute distress HEENT: Head- normocephalic; Eyes- EOMI, sclera anicteric; Throat- mucous membranes moist Cardiovascular: regular rate and rhythm; normal S1, S2; no murmurs, rubs, clicks or gallops; peripheral edema absent Respiratory: lungs clear to auscultation; without wheezes, rales or rhonchi; on room air Abdomen: soft, non-tender, non-distended Neurological: oriented x 3; normal speech; no focal findings or movement disorder noted Musculoskeletal: no significant deformity or tenderness to palpation Skin: normal coloration Psych: normal mood and affect Nutrition Care Initial Assessment Reason for visit: Nursing Referral for wound Nutrition Diagnosis: Increased nutrient needs related to increased nutrient needs for wound healing as evidenced by L foot ischemia, ulcer. Nutrition Intervention: Initiate Medical Food Supplement Nutrition Prescription: Diet: SANTOS 75 gm/meal Oral nutrition supplement: chidi twice daily Nutrition Goals: PO intake > 75% most meals, supplements Start Date:09/14/2023 Expected End Date:09/20/2023 Nutrition Education: receptive to chidi supplements Assessment: Pertinent clinical information: critical limb ischemia, necrotic ulcer Past Medical History: Diagnosis Date Apical 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 Chronic kidney disease Diabetes mellitus (HCC) Hypertension Ischemic cardiomyopathy 2012 Height: 5' 11 Current weight: 105.2 kg (232 lb) BMI Body mass index is 32.36 kg/m . Weight hx: stable Wt Readings from Last 5 Encounters: 09/13/23 105.2 kg (232 lb) 09/06/23 109.3 kg (241 lb) 08/26/22 107.5 kg (237 lb) 02/11/22 105.7 kg (233 lb) 12/28/21 108.6 kg (239 lb 6.7 oz) Current diet order: SANTOS 75 gm/meal Recent intake: good. Current intake Likely meets estimated needs. Patient/family comments: states he kind-of follows diet @ home, HgbA1c 7.2 Difficulty Chewing/Swallowing: No Skin Integrity: foot wound GI Function: LBM 09/13/23 Physical Appearance: no signs or symptoms of malnutrition Labs: Recent Labs 09/14/23 0336 NA 135 K 4.2 BICARB 24 CL 100 GLUCOSE 175* BUN 53* CREATININE 2.42* Scheduled Meds: atorvastatin 80 mg Oral Nightly clopidogreL 75 mg Oral Daily DULoxetine 20 mg Oral Daily lispro insulin 0-15 Units Subcutaneous at bedtime insulin lispro 0-30 Units Subcutaneous TID AC metoprolol succinate 25 mg Oral Daily sacubitriL-valsartan 1 tablet Oral BID sodium chloride (PF) 5 mL Intravenous Q8H CHARLIE torsemide 80 mg Oral BID Continuous Infusions: heparin infusion (weight based dosing) 12 Units/kg/hr (09/14/23627) heparin sodium chloride 0.9 % sodium chloride 0.9 % 100 mL/hr (09/14/23627) Estimated Energy Needs Total Energy Estimated Needs: 2200 kcal Method for Estimating Needs: @ 25 kcal/kg abw Total Protein Estimated Needs: 85-105 gm Method for Estimating Needs: @ 1-1.2 gm/kg abw Will continue to follow as needed., while in-house. Office [phone] documented in this encounter [facility] 09-14-2023 Consult note Associated Order (s): IP CONSULT TO CARDIOLOGY General Cardiology Inpatient Cardiology Consult Note Heart & Vascular [facility] 09/12/2023 Jennifer Palumbo MD [address] [facility] [id number] CARDIOLOGY CONSULT NOTE Patient Name: Gregg Foster Admit Date: 2060910 MR #: [id number] : 1955 Physicians: Jeff Cerda MD (Family) Kindly asked to evaluate Gregg Foster for chief complaint of Comanagement with hydration for CT angiography and severe left ventricular dysfunction ASSESSMENT and PLAN: 1. Systolic dysfunction, last ejection fraction 18% [place] Heart Association class II, ACC stage B We will continue to monitor fluid status as he receives IV hydration for renal protection Thank you for this interesting clinical case. We will continue to follow along unless otherwise noted. Jennifer Palumbo MD, [facility] Cardiovascular Medicine [facility] History of Present Illness: This is a 68-year-old gentleman with a past medical history of peripheral vascular disease, carotid artery disease, cardiomyopathy who presents for outpatient vascular imaging. Given renal function as well as cardiac disease, gentle hydration is done under observation. Patient underwent successful imaging today, has no episodes of chest pain shortness of breath chest pressure orthopnea. Objective History: Past Medical History: Diagnosis Date Apical 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 Chronic kidney disease Diabetes mellitus (HCC) Hypertension Ischemic cardiomyopathy 2012 Past Surgical History: Procedure Laterality Date ASD REPAIR CARDIAC CATHETERIZATION CARDIAC DEFIBRILLATOR PLACEMENT CHOLECYSTECTOMY 11/2020 TRANSCAROTID ARTERY REVASCULARIZATION Right 12/28/2021 Procedure: TRANSCAROTID ARTERY REVASCULARIZATION; Surgeon: Shahab Buckley MD; Location: IR LAB; Service: Surgical Interventional Radiology Family History Problem Relation Age of Onset Heart attack Mother Diabetes Mother Heart disease Father Pancreatic cancer Sister Colon cancer Sister Social History Socioeconomic History Marital status: Tobacco Use Smoking status: Never Smokeless tobacco: Never Vaping Use Vaping Use: Never used Substance and Sexual Activity Alcohol use: Yes Alcohol/week: 1.0 standard drink of alcohol Types: 1 Cans of beer per week Social Determinants of Health Food Insecurity: No Food Insecurity (09/13/2023) Hunger Vital Sign Worried About Running Out of Food in the Last Year: Never true Ran Out of Food in the Last Year: Never true Transportation Needs: No Transportation Needs (09/13/2023) PRAPARE - Transportation Lack of Transportation (Medical): No Lack of Transportation (Non-Medical): No Housing Stability: Low Risk (09/13/2023) Housing Stability Vital Sign Unable to Pay for Housing in the Last Year: No Number of Places Lived in the Last Year: 1 Unstable Housing in the Last Year: No Tobacco & Smokeless: Tobacco Use Smoking status: Never Smokeless tobacco: Never Allergy Information: I have reviewed the patient's allergies. Patient has no known allergies. Home Medications: Outpatient Medications as of 09/12/2023 Medication Sig allopurinoL (ZYLOPRIM) 100 MG tablet Take 1 (one) tablet (100 mg total) by mouth daily 1/2 tablet one time daily . apixaban 5 mg Tab Take 1 (one) tablet (5 mg total) by mouth 2 (two) times a day . atorvastatin (LIPITOR) 80 MG tablet TAKE 1 TABLET BY MOUTH DAILY . cholecalciferol, vitamin D3, 1,000 unit tablet Take 2 (two) tablets (2,000 Units total) by mouth daily . clopidogreL (PLAVIX) 75 mg tablet TAKE 1 TABLET BY MOUTH EVERY DAY doxycycline (ADOXA) 50 MG tablet Take 1 (one) tablet (50 mg total) by mouth 2 (two) times a day . DULoxetine (CYMBALTA) 20 MG capsule TAKE 1 CAPSULE BY MOUTH EVERY DAY FOR 30 DAYS HumaLOG KwikPen Insulin 200 unit/mL (3 mL) InPn INJECT 24 UNITS UNDER THE SKIN IN THE MORNING, 24 UNITS AT NOON, 24 UNITS IN THE EVENING WITH MEALS insulin glargine (LANTUS) 100 unit/mL injection Inject 30 (thirty) Units under the skin every morning . Jardiance 10 mg Tab Take 1 (one) tablet (10 mg total) by mouth daily . metoprolol succinate (TOPROL-XL) 25 MG 24 hr tablet Take 1 (one) tablet (25 mg total) by mouth 2 (two) times a day . sacubitriL-valsartan (ENTRESTO) 49-51 mg per tablet Take 1 (one) tablet by mouth 2 (two) times a day . torsemide (DEMADEX) 20 MG tablet Take 4 (four) tablets (80 mg total) by mouth 2 (two) times a day . Inpatient Medications: Current Facility-Administered Medications: acetaminophen (TYLENOL) tablet 650 mg, 650 mg, Oral, Q4H PRN, Patito Álvarez MD atorvastatin (LIPITOR) tablet 80 mg, 80 mg, Oral, Nightly, Patito Álvarez MD, 80 mg at 09/13/232114 clopidogreL (PLAVIX) tablet 75 mg, 75 mg, Oral, Daily, Patito Álvarez MD, 75 mg at 09/14/23905 DULoxetine (CYMBALTA) DR capsule 20 mg, 20 mg, Oral, Daily, Patito Álvarez MD, 20 mg at 09/14/23905 heparin (porcine) 25,000 unit/250 mL(100 unit/mL) in D5W infusion, 0-70 Units/kg/hr, Intravenous, Continuous, Patito Álvarez MD, Last Rate: 12.6 mL/hr at 09/14/23627, 12 Units/kg/hr at 09/14/23627 heparin bolus from bag 0-5,000 Units, 0-5,000 Units, Intravenous, Continuous PRN, Patito Álvarez MD, 3,200 Units at 09/14/23 0429 insulin lispro (AdmeLOG,HumaLOG) injection 0-15 Units, 0-15 Units, Subcutaneous, at bedtime AND Notify physician, , , Until Discontinued, Patito Álvarez MD insulin lispro (AdmeLOG,HumaLOG) injection 0-30 Units, 0-30 Units, Subcutaneous, TID AC, Patito Álvarez MD metoprolol succinate (TOPROL-XL) 24 hr tablet 25 mg, 25 mg, Oral, Daily, Patito Álvarez MD, 25 mg at 09/14/23 09 ondansetron (ZOFRAN-ODT) disintegrating tablet 4 mg, 4 mg, Oral, Q6H PRN OR ondansetron (ZOFRAN) injection 4 mg, 4 mg, Intravenous, Q6H PRN, Patito Álvarez MD perflutren lipid microspheres (DEFINITY) 0.143 mg/mL solution 0-10 mL of mixture, 0-10 mL of mixture, Intravenous, Once in imaging, Shahab Buckley MD sacubitriL-valsartan (ENTRESTO) 49-51 mg per tablet 1 tablet, 1 tablet, Oral, BID, Patito Álvarez MD, 1 tablet at 09/14/23 0023 Saline lock IV, , , Continuous AND sodium chloride (PF) (NS) flush 5 mL, 5 mL, Intravenous, PRN AND sodium chloride (PF) (NS) flush 5 mL, 5 mL, Intravenous, Q8H CHARLIE, 5 mL at 09/14/23 0601 AND sodium chloride 0.9% (NS), 0-150 mL/hr, Intravenous, PRN, Patito Álvarez MD sodium chloride 0.9% (NS), 100 mL/hr, Intravenous, Continuous, Shahab Buckley MD, Last Rate: 100 mL/hr at 09/14/23 0628, Rate Verify at 09/14/23 06 torsemide (DEMADEX) tablet 80 mg, 80 mg, Oral, BID, Paitto Álvarez MD, 80 mg at 09/14/23 09 traZODone (DESYREL) tablet 50 mg, 50 mg, Oral, Nightly PRN, Patito Álvarez MD Current Outpatient Medications: allopurinoL (ZYLOPRIM) 100 MG tablet, Take 1 (one) tablet (100 mg total) by mouth daily 1/2 tablet one time daily ., Disp: , Rfl: apixaban 5 mg Tab, Take 1 (one) tablet (5 mg total) by mouth 2 (two) times a day ., Disp: , Rfl: atorvastatin (LIPITOR) 80 MG tablet, TAKE 1 TABLET BY MOUTH DAILY ., Disp: 30 tablet, Rfl: 11 cholecalciferol, vitamin D3, 1,000 unit tablet, Take 2 (two) tablets (2,000 Units total) by mouth daily ., Disp: , Rfl: clopidogreL (PLAVIX) 75 mg tablet, TAKE 1 TABLET BY MOUTH EVERY DAY, Disp: 30 tablet, Rfl: 11 doxycycline (ADOXA) 50 MG tablet, Take 1 (one) tablet (50 mg total) by mouth 2 (two) times a day ., Disp: , Rfl: DULoxetine (CYMBALTA) 20 MG capsule, TAKE 1 CAPSULE BY MOUTH EVERY DAY FOR 30 DAYS, Disp: , Rfl: HumaLOG KwikPen Insulin 200 unit/mL (3 mL) InPn, INJECT 24 UNITS UNDER THE SKIN IN THE MORNING, 24 UNITS AT NOON, 24 UNITS IN THE EVENING WITH MEALS, Disp: , Rfl: insulin glargine (LANTUS) 100 unit/mL injection, Inject 30 (thirty) Units under the skin every morning ., Disp: , Rfl: Jardiance 10 mg Tab, Take 1 (one) tablet (10 mg total) by mouth daily ., Disp: , Rfl: metoprolol succinate (TOPROL-XL) 25 MG 24 hr tablet, Take 1 (one) tablet (25 mg total) by mouth 2 (two) times a day ., Disp: , Rfl: sacubitriL-valsartan (ENTRESTO) 49-51 mg per tablet, Take 1 (one) tablet by mouth 2 (two) times a day ., Disp: , Rfl: torsemide (DEMADEX) 20 MG tablet, Take 4 (four) tablets (80 mg total) by mouth 2 (two) times a day ., Disp: , Rfl: gabapentin (NEURONTIN) 300 MG capsule, Take 1 (one) capsule (300 mg total) by mouth every 8 (eight) hours (Days supply per fill: 4) . (Patient taking differently: Take 1 (one) capsule (300 mg total) by mouth 2 (two) times a day (Days supply per fill: 4) .), Disp: 90 capsule, Rfl: 0 Review of Systems: A 12 system review of systems was performed, pertinent positives and negatives noted in HPI Physical Examination: BP 123/77 Pulse 81 Temp 97.5 F (36.4 C) (Oral) Resp 16 Ht 5' 11 Wt 105.2 kg (232 lb) SpO2 92% BMI 32.36 kg/m Constitutional: Well-appearing male, no acute distress Neck: No elevated jugular venous distension Cardiovascular: Regular rate and rhythm Pulmonary/Chest: Normal respiratory effort, lung sounds are clear. Extremities: No edema Neurological: AOx3, moving all extremities normally Skin: Skin is warm and dry, normal hair pattern Psychiatric: Normal mood and affect, appropriate conversation Intake/Output last 3 shifts: I/O last 3 completed shifts: In: 972.7 [P.O.:800; I.V.:172.7] Out: 400 [Urine:400] Laboratory Data Reviewed: Lab Results Component Value Date GLUCOSE 175 (H) 09/14/2023 CALCIUM 9.2 09/14/2023 NA 135 09/14/2023 K 4.2 09/14/2023 CL 100 09/14/2023 BUN 53 (H) 09/14/2023 CREATININE 2.42 (H) 09/14/2023 Results from last 7 days Lab Units 09/14/23 0336 WBC K/mcL 9.23 HGB g/dL 13.7 HCT % 44.5 PLT K/mcL 262 Results from last 7 days Lab Units 09/13/23 1659 NT PRO BNP pg/mL 8,873* No results found for: HGBA1C No results found for: CHOL , LDLCALC , LDLDIRECT , TRIG , HDL Lab Results Component Value Date TROPONINI 31 12/28/2021 Lab Results Component Value Date ALBUMIN 3.0 (L) 09/14/2023 Imaging: Pertinent studies reviewed and relevant findings noted. Cardiovascular Studies: Reviewed Echo 2021 Summary 1. Severe left ventricular concentric hypertrophy. [...] atrial septal defect repair. Cannot exclude residual [id number] shunt on color Doppler. 8. No left ventricular thrombus identified on Definity contrast. [facility] Work Phone: 09-14-2023 Consult note Associated Order (s): IP CONSULT TO CARDIOLOGY General Cardiology Inpatient Cardiology Consult Note Heart & Vascular [facility] 09/12/2023 Jennifer Palumbo MD [address] [facility] [address] CARDIOLOGY CONSULT NOTE Patient Name: Gregg Foster Admit Date: 2060910 MR #: [id number] : 1955 Physicians: Jeff Cerda MD (Family) Kindly asked to evaluate Gregg Foster for chief complaint of Comanagement with hydration for CT angiography and severe left ventricular dysfunction ASSESSMENT and PLAN: 1. Systolic dysfunction, last ejection fraction 18% [place] Heart Association class II, ACC stage B We will continue to monitor fluid status as he receives IV hydration for renal protection Thank you for this interesting clinical case. We will continue to follow along unless otherwise noted. Jennifer Palumbo MD, [facility] Cardiovascular Medicine [facility] History of Present Illness: This is a 68-year-old gentleman with a past medical history of peripheral vascular disease, carotid artery disease, cardiomyopathy who presents for outpatient vascular imaging. Given renal function as well as cardiac disease, gentle hydration is done under observation. Patient underwent successful imaging today, has no episodes of chest pain shortness of breath chest pressure orthopnea. Objective History: Past Medical History: Diagnosis Date Apical 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 Chronic kidney disease Diabetes mellitus (HCC) Hypertension Ischemic cardiomyopathy 2012 Past Surgical History: Procedure Laterality Date ASD REPAIR CARDIAC CATHETERIZATION CARDIAC DEFIBRILLATOR PLACEMENT CHOLECYSTECTOMY 11/2020 TRANSCAROTID ARTERY REVASCULARIZATION Right 12/28/2021 Procedure: TRANSCAROTID ARTERY REVASCULARIZATION; Surgeon: Shahab Buckley MD; Location: IR LAB; Service: Surgical Interventional Radiology Family History Problem Relation Age of Onset Heart attack Mother Diabetes Mother Heart disease Father Pancreatic cancer Sister Colon cancer Sister Social History Socioeconomic History Marital status: Tobacco Use Smoking status: Never Smokeless tobacco: Never Vaping Use Vaping Use: Never used Substance and Sexual Activity Alcohol use: Yes Alcohol/week: 1.0 standard drink of alcohol Types: 1 Cans of beer per week Social Determinants of Health Food Insecurity: No Food Insecurity (09/13/2023) Hunger Vital Sign Worried About Running Out of Food in the Last Year: Never true Ran Out of Food in the Last Year: Never true Transportation Needs: No Transportation Needs (09/13/2023) PRAPARE - Transportation Lack of Transportation (Medical): No Lack of Transportation (Non-Medical): No Housing Stability: Low Risk (09/13/2023) Housing Stability Vital Sign Unable to Pay for Housing in the Last Year: No Number of Places Lived in the Last Year: 1 Unstable Housing in the Last Year: No Tobacco & Smokeless: Tobacco Use Smoking status: Never Smokeless tobacco: Never Allergy Information: I have reviewed the patient's allergies. Patient has no known allergies. Home Medications: Outpatient Medications as of 09/12/2023 Medication Sig allopurinoL (ZYLOPRIM) 100 MG tablet Take 1 (one) tablet (100 mg total) by mouth daily 1/2 tablet one time daily . apixaban 5 mg Tab Take 1 (one) tablet (5 mg total) by mouth 2 (two) times a day . atorvastatin (LIPITOR) 80 MG tablet TAKE 1 TABLET BY MOUTH DAILY . cholecalciferol, vitamin D3, 1,000 unit tablet Take 2 (two) tablets (2,000 Units total) by mouth daily . clopidogreL (PLAVIX) 75 mg tablet TAKE 1 TABLET BY MOUTH EVERY DAY doxycycline (ADOXA) 50 MG tablet Take 1 (one) tablet (50 mg total) by mouth 2 (two) times a day . DULoxetine (CYMBALTA) 20 MG capsule TAKE 1 CAPSULE BY MOUTH EVERY DAY FOR 30 DAYS HumaLOG KwikPen Insulin 200 unit/mL (3 mL) InPn INJECT 24 UNITS UNDER THE SKIN IN THE MORNING, 24 UNITS AT NOON, 24 UNITS IN THE EVENING WITH MEALS insulin glargine (LANTUS) 100 unit/mL injection Inject 30 (thirty) Units under the skin every morning . Jardiance 10 mg Tab Take 1 (one) tablet (10 mg total) by mouth daily . metoprolol succinate (TOPROL-XL) 25 MG 24 hr tablet Take 1 (one) tablet (25 mg total) by mouth 2 (two) times a day . sacubitriL-valsartan (ENTRESTO) 49-51 mg per tablet Take 1 (one) tablet by mouth 2 (two) times a day . torsemide (DEMADEX) 20 MG tablet Take 4 (four) tablets (80 mg total) by mouth 2 (two) times a day . Inpatient Medications: Current Facility-Administered Medications: acetaminophen (TYLENOL) tablet 650 mg, 650 mg, Oral, Q4H PRN, Patito Álvarez MD atorvastatin (LIPITOR) tablet 80 mg, 80 mg, Oral, Nightly, Patito Álvarez MD, 80 mg at 09/13/232114 clopidogreL (PLAVIX) tablet 75 mg, 75 mg, Oral, Daily, Patito Álvarez MD, 75 mg at 09/14/23905 DULoxetine (CYMBALTA) DR capsule 20 mg, 20 mg, Oral, Daily, Patito Álvarez MD, 20 mg at 09/14/23905 heparin (porcine) 25,000 unit/250 mL(100 unit/mL) in D5W infusion, 0-70 Units/kg/hr, Intravenous, Continuous, Patito Álvarez MD, Last Rate: 12.6 mL/hr at 09/14/23627, 12 Units/kg/hr at 09/14/23627 heparin bolus from bag 0-5,000 Units, 0-5,000 Units, Intravenous, Continuous PRN, Patito Álvarez MD, 3,200 Units at 09/14/23 042 insulin lispro (AdmeLOG,HumaLOG) injection 0-15 Units, 0-15 Units, Subcutaneous, at bedtime AND Notify physician, , , Until Discontinued, Patito Álvarez MD insulin lispro (AdmeLOG,HumaLOG) injection 0-30 Units, 0-30 Units, Subcutaneous, TID AC, Patito Álvarez MD metoprolol succinate (TOPROL-XL) 24 hr tablet 25 mg, 25 mg, Oral, Daily, Patito Álvarez MD, 25 mg at 09/14/23905 ondansetron (ZOFRAN-ODT) disintegrating tablet 4 mg, 4 mg, Oral, Q6H PRN OR ondansetron (ZOFRAN) injection 4 mg, 4 mg, Intravenous, Q6H PRN, Patito Álvarez MD perflutren lipid microspheres (DEFINITY) 0.143 mg/mL solution 0-10 mL of mixture, 0-10 mL of mixture, Intravenous, Once in imaging, Shahab Buckley MD sacubitriL-valsartan (ENTRESTO) 49-51 mg per tablet 1 tablet, 1 tablet, Oral, BID, Patito Álvarez MD, 1 tablet at 09/14/23 0023 Saline lock IV, , , Continuous AND sodium chloride (PF) (NS) flush 5 mL, 5 mL, Intravenous, PRN AND sodium chloride (PF) (NS) flush 5 mL, 5 mL, Intravenous, Q8H CHARLIE, 5 mL at 09/14/23 0601 AND sodium chloride 0.9% (NS), 0-150 mL/hr, Intravenous, PRN, Patito Álvarez MD sodium chloride 0.9% (NS), 100 mL/hr, Intravenous, Continuous, Shahab Buckley MD, Last Rate: 100 mL/hr at 09/14/23627, Rate Verify at 09/14/23627 torsemide (DEMADEX) tablet 80 mg, 80 mg, Oral, BID, Patito Álvarez MD, 80 mg at 09/14/23905 traZODone (DESYREL) tablet 50 mg, 50 mg, Oral, Nightly PRN, Patito Álvarez MD Current Outpatient Medications: allopurinoL (ZYLOPRIM) 100 MG tablet, Take 1 (one) tablet (100 mg total) by mouth daily 1/2 tablet one time daily ., Disp: , Rfl: apixaban 5 mg Tab, Take 1 (one) tablet (5 mg total) by mouth 2 (two) times a day ., Disp: , Rfl: atorvastatin (LIPITOR) 80 MG tablet, TAKE 1 TABLET BY MOUTH DAILY ., Disp: 30 tablet, Rfl: 11 cholecalciferol, vitamin D3, 1,000 unit tablet, Take 2 (two) tablets (2,000 Units total) by mouth daily ., Disp: , Rfl: clopidogreL (PLAVIX) 75 mg tablet, TAKE 1 TABLET BY MOUTH EVERY DAY, Disp: 30 tablet, Rfl: 11 doxycycline (ADOXA) 50 MG tablet, Take 1 (one) tablet (50 mg total) by mouth 2 (two) times a day ., Disp: , Rfl: DULoxetine (CYMBALTA) 20 MG capsule, TAKE 1 CAPSULE BY MOUTH EVERY DAY FOR 30 DAYS, Disp: , Rfl: HumaLOG KwikPen Insulin 200 unit/mL (3 mL) InPn, INJECT 24 UNITS UNDER THE SKIN IN THE MORNING, 24 UNITS AT NOON, 24 UNITS IN THE EVENING WITH MEALS, Disp: , Rfl: insulin glargine (LANTUS) 100 unit/mL injection, Inject 30 (thirty) Units under the skin every morning ., Disp: , Rfl: Jardiance 10 mg Tab, Take 1 (one) tablet (10 mg total) by mouth daily ., Disp: , Rfl: metoprolol succinate (TOPROL-XL) 25 MG 24 hr tablet, Take 1 (one) tablet (25 mg total) by mouth 2 (two) times a day ., Disp: , Rfl: sacubitriL-valsartan (ENTRESTO) 49-51 mg per tablet, Take 1 (one) tablet by mouth 2 (two) times a day ., Disp: , Rfl: torsemide (DEMADEX) 20 MG tablet, Take 4 (four) tablets (80 mg total) by mouth 2 (two) times a day ., Disp: , Rfl: gabapentin (NEURONTIN) 300 MG capsule, Take 1 (one) capsule (300 mg total) by mouth every 8 (eight) hours (Days supply per fill: 4) . (Patient taking differently: Take 1 (one) capsule (300 mg total) by mouth 2 (two) times a day (Days supply per fill: 4) .), Disp: 90 capsule, Rfl: 0 Review of Systems: A 12 system review of systems was performed, pertinent positives and negatives noted in HPI Physical Examination: BP 123/77 Pulse 81 Temp 97.5 F (36.4 C) (Oral) Resp 16 Ht 5' 11 Wt 105.2 kg (232 lb) SpO2 92% BMI 32.36 kg/m Constitutional: Well-appearing male, no acute distress Neck: No elevated jugular venous distension Cardiovascular: Regular rate and rhythm Pulmonary/Chest: Normal respiratory effort, lung sounds are clear. Extremities: No edema Neurological: AOx3, moving all extremities normally Skin: Skin is warm and dry, normal hair pattern Psychiatric: Normal mood and affect, appropriate conversation Intake/Output last 3 shifts: I/O last 3 completed shifts: In: 972.7 [P.O.:800; I.V.:172.7] Out: 400 [Urine:400] Laboratory Data Reviewed: Lab Results Component Value Date GLUCOSE 175 (H) 09/14/2023 CALCIUM 9.2 09/14/2023 NA 135 09/14/2023 K 4.2 09/14/2023 CL 100 09/14/2023 BUN 53 (H) 09/14/2023 CREATININE 2.42 (H) 09/14/2023 Results from last 7 days Lab Units 09/14/23 0336 WBC K/mcL 9.23 HGB g/dL 13.7 HCT % 44.5 PLT K/mcL 262 Results from last 7 days Lab Units 09/13/23 1659 NT PRO BNP pg/mL 8,873* No results found for: HGBA1C No results found for: CHOL , LDLCALC , LDLDIRECT , TRIG , HDL Lab Results Component Value Date TROPONINI 31 12/28/2021 Lab Results Component Value Date ALBUMIN 3.0 (L) 09/14/2023 Imaging: Pertinent studies reviewed and relevant findings noted. Cardiovascular Studies: Reviewed Echo 2021 Summary 1. Severe left ventricular concentric hypertrophy. [...] atrial septal defect repair. Cannot exclude residual [id number]-[id number] shunt on color Doppler. 8. No left ventricular thrombus identified on Definity contrast. documented in this encounter [facility] 09-14-2023 Note Formatting of this n ote might be different from the original. POC REVIEWED, CT ANGIOGRAM ABD AORTA LOWER AND ECHO TODAY Problem: Actual or potential alteration in health Goal: Absence of healthcare acquired conditions Outcome: Partially Met Goal: Knowledge of Interdisciplinary Plan of Care Outcome: Partially Met Goal: Knowledge of Enviroment Outcome: Partially Met [facility] 09-13-2023 Note EXAMINATION: CT ANGIOGRAM ABDOMINAL AORTA WITH LOWER EXTREMITY PROCEDURE: 1. Enhanced CT scan of the abdomen. 2. Enhanced CT scan of the pelvis. 3. Enhanced CT scan of the lower extremities. 4. CTA abdominal aorta. 5. CTA runoff lower extremities. 6. 3-D reconstructions on a separate workstation. HISTORY: 68-year-old with claudication. Deejay class V peripheral vascular disease in the right lower extremity with S aleksandra involving the lateral right foot. Ischemic ulceration the left heel. History of severe ischemic cardiomyopathy (ejection fraction 20%) and prior AFib cardioversion with reconversion into atrial fibrillation. COMPARISON: CT abdomen pelvis 08/12/2019 TECHNIQUE: Enhanced axial CT images of the abdomen, pelvis and lower extremities. No contrast reaction. 3D reformatted images performed on a separate workstation. Dose reduction technique used: Automated exposure control/Adjustment of the mA and/or kV according to patient size/Use of iterative reconstruction technique. FINDINGS: CTA: Abdominal Aorta: Scattered calcified and noncalcified plaque. No aneurysm or dissection. Celiac Artery: Patent. Mild proximal stenosis. The celiac gives rise to the splenic and left gastric arteries. SMA: Patent. No stenosis. Variant anatomy replaced common hepatic artery originating from the SMA. PAO: Patent. Partial dissection approximately 2 cm from the origin. Renal Arteries: One renal artery supplying the right kidney. One renal artery supplying the left kidney. No evidence of stenosis or dissection. Common Iliac Arteries: Trace plaque. No stenosis. External and Internal Iliac Arteries: Scattered plaque. No stenosis. Right Leg: Common Femoral Artery: Calcified plaque causing minimal stenosis. Profunda: Patent. SFA: Plaque throughout causing multifocal moderate and high-grade stenoses. Popliteal Artery: Plaque throughout causing multifocal mild stenoses. Runoff Lower Leg: Patent 3 vessel runoff. Extensive plaque throughout the anterior tibial artery causing multifocal stenoses. Proximal stenosis in the posterior tibial artery. Left Leg: Common Femoral Artery: Calcified and noncalcified plaque without significant stenosis Profunda: Patent. SFA: Scattered plaque causing mild multifocal stenoses. Popliteal Artery: Scattered plaque causing mild multifocal stenoses. Runoff Lower Leg: Patent 2 vessel left lower extremity runoff via the peroneal and posterior tibial arteries. High-grade stenosis to near occlusion of the anterior tibial artery with reconstitution at the ankle. Multifocal posterior tibial stenosis. CHEST: Lower Lungs: Scarring in the bilateral lung bases. Partially visualized electrodes at the left and right ventricles and right atrium. ABDOMEN: Liver: Normal size and homogenous parenchyma. Gallbladder: Status post cholecystectomy. No calcified gallstones. No bile duct dilation. Spleen: Scattered calcified granulomas. Adrenals: Normal Pancreas: Diffuse pancreatic atrophy. No peripancreatic stranding. IVC: Normal. Kidneys: No calculus, mass, or hydronephrosis. Retroperitoneum: No adenopathy. Stomach: No abnormality. PELVIS: Reproductive Organs: No pelvic mass. Bladder: Mild diffuse smooth wall thickening Colon: No focal wall thickening or paracolic fat stranding. Small Bowel: No dilation or wall thickening. Appendix: Normal. Mesentery: No adenopathy. Normal splanchnic veins. Peritoneum: No free fluid or free air. Body wall: No abnormality. Bones: No destructive lesion. 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 IMPRESSION: 1. Aortic atherosclerosis no aneurysm or dissection 2. Mild proximal celiac stenosis 3. 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 4. Patent PAO with small partial dissection 2 cm from the origin 5. Right lower extremity atherosclerotic disease causing multifocal moderate to severe SFA and mild popliteal stenoses. 6. Three-vessel right lower extremity runoff with plaque causing multifocal anterior tibial stenoses and proximal posterior tibial stenosis. 7. Left lower extremity atherosclerotic disease causing multifocal mild SFA and popliteal stenoses 8. 2 vessel left lower extremity runoff via the peroneal and posterior tibial arteries with multifocal posterior tibial stenoses as well as high-grade stenosis to near occlusion of the anterior tibial artery and reconstitution at the ankle. 9. Mild diffuse bladder wall thickening correlate for chronic outlet obstruction. 10. Additional chronic findings as above. Workstation ID: [id number] Dictated by: LEXI SY on MonSep 14, 2023 12:34:49 PM EST Transcribed by: LEXI SY on MonSep 14, 2023 12:34:49 PM EST Finalized by: LEXI SY on MonSep 14, 2023 12:34:49 PM EST [facility] Comment on above: Order Comment: Revol ution scanner only. The patient needs a gated exam with significantly decreased left ventricular function. Injury/Trauma or Illness?:Illness/Other How long have you had these symptoms (acute/chronic)?:Acute Reason for exam?:claudication, pain rt leg Type of Exam?:Initial Additional signs and symptoms?:. 09-13-2023 Note Formatting of this n ote might be different from the original. Problem: Actual or potential alteration in health Goal: Absence of healthcare acquired conditions Outcome: Partially Met Goal: Knowledge of Interdisciplinary Plan of Care Outcome: Partially Met Goal: Knowledge of Enviroment Outcome: Partially Met [facility] 09-13-2023 History and physical note [facility] [facility] [place] [place] [facility] Patient Name: Gregg Foster : 1955 MR #: [id number] Admit Date: 09/13/2023 Physicians: Jeff Cerda MD (Family); No ref. provider found (Referring) Gregg Foster is a 68 y.o. male patient of Jeff Cerda MD with history of critical limb ischemia, chf, diabetes presented to [facility] with plan for angiogram . Critical limb ischemia PAD Being followed by vascular surgery outpatient Sent for inpatient CTA and further intervention Consult vascular surgery Start heparin drip Hold home OAC Plavix CTA, echo, US and FLORENCIO Afib Heparin drip as above Home metoprol CHF Home toprol entresto and torsimide Cardiology consult CAD Home statin Anxiety Cymbalta I spent 37 minutes providing critical care services independent of procedures and other care providers. My time managing this critically ill patient included review of interval history, laboratories, radiology and consultation reports; performing a physical examination; discussing patient with the care team and managing life sustaining therapies to prevent imminent clinical deterioration. Residence prior to admission: house or apartment Was patient transferred from outlying hospital or ED no Quality Measures DVT Prophylaxis: heparin gtt Vallecillo Catheter: absent Medication Reconciliation: Verified Admitted with these risk variables:None. Please see assessment and plan for further details. Estimated Date of Discharge greater than 2 midnights Code Status Full Code; code status verified on 09/13/2023 with patient (capacity intact) Chief Complaint necrotic ulcer History of Present Illness 65-year-old male past medical history of PAD A-fib CHF comes to the hospital as a direct admission for surgical evaluation. Patient has PAD diabetes and A-fib with known critical limb ischemia. Patient is on Eliquis and Plavix at home. Patient is being followed by vascular surgery outpatient. Patient also has known heart failure. Patient is not having any shortness of breath cough chest pain trouble breathing. Patient overall feels well denies any nausea vomiting fevers or chills. Past Medical History Past Medical History: Diagnosis Date Apical 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 Chronic kidney disease Diabetes mellitus (HCC) Hypertension Ischemic cardiomyopathy 2012 Past Surgical History Past Surgical History: Procedure Laterality Date ASD REPAIR CARDIAC CATHETERIZATION CARDIAC DEFIBRILLATOR PLACEMENT CHOLECYSTECTOMY 11/2020 TRANSCAROTID ARTERY REVASCULARIZATION Right 12/28/2021 Procedure: TRANSCAROTID ARTERY REVASCULARIZATION; Surgeon: Shahab Buckley MD; Location: IR LAB; Service: Surgical Interventional Radiology Family History Family History Problem Relation Age of Onset Heart attack Mother Diabetes Mother Heart disease Father Pancreatic cancer Sister Colon cancer Sister Social History Social History Tobacco Use Smoking Status Never Smokeless Tobacco Never Social History Substance and Sexual Activity Alcohol Use Yes Alcohol/week: 1.0 standard drink of alcohol Types: 1 Cans of beer per week Social History Substance and Sexual Activity Drug Use Not on file Allergy Information I have reviewed the patient's allergies. Patient has no known allergies. Home Medications Home medications were reviewed. Review Of Systems All relevant systems have been reviewed and are negative except as noted in HPI or below Physical Examination BP 124/79 Pulse (!) 119 Temp 97.5 F (36.4 C) (Oral) Resp 16 Ht 5' 11 Wt 105.2 kg (232 lb) BMI 32.36 kg/m General Appearance: alert; well appearing; in no acute distress HEENT: Head- normocephalic; Eyes- EOMI, sclera anicteric; Throat- mucous membranes moist Cardiovascular: regular rate and rhythm; normal S1, S2; no murmurs, rubs, clicks or gallops; peripheral edema absent Respiratory: lungs clear to auscultation; without wheezes, rales or rhonchi; on room air Abdomen: soft, non-tender, non-distended Neurological: oriented x 3; normal speech; no focal findings or movement disorder noted Musculoskeletal: no significant deformity or tenderness to palpation Skin: normal coloration Psych: normal mood and affect [facility] 09-13-2023 History and physical note [facility] [facility] [place] [place] [facility] Patient Name: Gregg Foster : 1955 MR #: [id number] Admit Date: 09/13/2023 Physicians: Jeff Cerda MD (Family); No ref. provider found (Referring) Gregg Foster is a 68 y.o. male patient of Jeff Cerda MD with history of critical limb ischemia, chf, diabetes presented to [facility] with plan for angiogram . Critical limb ischemia PAD Being followed by vascular surgery outpatient Sent for inpatient CTA and further intervention Consult vascular surgery Start heparin drip Hold home OAC Plavix CTA, echo, US and FLORENCIO Afib Heparin drip as above Home metoprol CHF Home toprol entresto and torsimide Cardiology consult CAD Home statin Anxiety Cymbalta I spent 37 minutes providing critical care services independent of procedures and other care providers. My time managing this critically ill patient included review of interval history, laboratories, radiology and consultation reports; performing a physical examination; discussing patient with the care team and managing life sustaining therapies to prevent imminent clinical deterioration. Residence prior to admission: house or apartment Was patient transferred from outlying hospital or ED no Quality Measures DVT Prophylaxis: heparin gtt Vallecillo Catheter: absent Medication Reconciliation: Verified Admitted with these risk variables:None. Please see assessment and plan for further details. Estimated Date of Discharge greater than 2 midnights Code Status Full Code; code status verified on 09/13/2023 with patient (capacity intact) Chief Complaint necrotic ulcer History of Present Illness 65-year-old male past medical history of PAD A-fib CHF comes to the hospital as a direct admission for surgical evaluation. Patient has PAD diabetes and A-fib with known critical limb ischemia. Patient is on Eliquis and Plavix at home. Patient is being followed by vascular surgery outpatient. Patient also has known heart failure. Patient is not having any shortness of breath cough chest pain trouble breathing. Patient overall feels well denies any nausea vomiting fevers or chills. Past Medical History Past Medical History: Diagnosis Date Apical 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 Chronic kidney disease Diabetes mellitus (HCC) Hypertension Ischemic cardiomyopathy 2012 Past Surgical History Past Surgical History: Procedure Laterality Date ASD REPAIR CARDIAC CATHETERIZATION CARDIAC DEFIBRILLATOR PLACEMENT CHOLECYSTECTOMY 11/2020 TRANSCAROTID ARTERY REVASCULARIZATION Right 12/28/2021 Procedure: TRANSCAROTID ARTERY REVASCULARIZATION; Surgeon: Shahab Buckley MD; Location: IR LAB; Service: Surgical Interventional Radiology Family History Family History Problem Relation Age of Onset Heart attack Mother Diabetes Mother Heart disease Father Pancreatic cancer Sister Colon cancer Sister Social History Social History Tobacco Use Smoking Status Never Smokeless Tobacco Never Social History Substance and Sexual Activity Alcohol Use Yes Alcohol/week: 1.0 standard drink of alcohol Types: 1 Cans of beer per week Social History Substance and Sexual Activity Drug Use Not on file Allergy Information I have reviewed the patient's allergies. Patient has no known allergies. Home Medications Home medications were reviewed. Review Of Systems All relevant systems have been reviewed and are negative except as noted in HPI or below Physical Examination BP 124/79 Pulse (!) 119 Temp 97.5 F (36.4 C) (Oral) Resp 16 Ht 5' 11 Wt 105.2 kg (232 lb) BMI 32.36 kg/m General Appearance: alert; well appearing; in no acute distress HEENT: Head- normocephalic; Eyes- EOMI, sclera anicteric; Throat- mucous membranes moist Cardiovascular: regular rate and rhythm; normal S1, S2; no murmurs, rubs, clicks or gallops; peripheral edema absent Respiratory: lungs clear to auscultation; without wheezes, rales or rhonchi; on room air Abdomen: soft, non-tender, non-distended Neurological: oriented x 3; normal speech; no focal findings or movement disorder noted Musculoskeletal: no significant deformity or tenderness to palpation Skin: normal coloration Psych: normal mood and affect Images from the original note were not included. Assessment Critical limb ischemia of right lower extremity (HCC) The patient has an extraordinarily challenging problem. He has very significant ischemic cardiomyopathy. He has had cardioversion for his atrial fibrillation but unfortunately he reconverted into atrial fibrillation. His BNP is significantly over 4000 from his chronic heart disease. Patient is volume contracted with diuretic which exacerbates his cardiorenal syndrome. He also has underlying diabetes mellitus. I do not think I can safely get a CT angiogram as an outpatient. I spoke to Dr. Jennifer Palumbo one of our editing intern and we think that the safest option is to admit him as an outpatient for hydration and observation by cardiology as to his volume status and congestive heart failure. After hydration we will get a CT angiogram so I can see what alternatives might be available to revascularize his critical limb ischemia in his right limb. I was hoping that there would be endovascular options since with his cardiac situation open surgery would be extremely hazardous. Our plan is to next Monday admit him for hydration and CT angiography with careful observation. He will probably convert from an outpatient observation status to an inpatient so that I could ultimately intervene for his arterial insufficiency. A thorough explanation of the difficulty with caring for his arterial insufficiency was elucidated to the patient's and the patient. I appreciate Dr. Palumbo's willingness to help me manage his cardiac status for his critical limb ischemia. Gregg AlvaradoKristin 1955 67 y.o. male who presents to the office in consultation for arterial insufficiency in his right lower extremity. I have previously done a right transcarotid arterial revascularization for the patient in December 2021. The patient has developed ischemic ulceration of the left heel which has been treated for 8 months by a email production specialist in [place], [place]. He has had marked progression of his critical limb ischemia with eschar involving the lateral aspect of the right foot. The patient is [facility] for his significant congestive heart failure. He has had echocardiography which shows that his ejection fraction is less than 20%. Because of his diabetes and his volume contraction for his congestive heart failure from his ischemic cardiomyopathy the patient's GFR was last reported on July 12, 2023 at 37 mL/min. Past Medical History: Diagnosis Date Apical 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 Chronic kidney disease Diabetes mellitus (HCC) Hypertension Ischemic cardiomyopathy 2012 Past Surgical History: Procedure Laterality Date ASD REPAIR CARDIAC CATHETERIZATION CARDIAC DEFIBRILLATOR PLACEMENT CHOLECYSTECTOMY 11/2020 TRANSCAROTID ARTERY REVASCULARIZATION Right 12/28/2021 Procedure: TRANSCAROTID ARTERY REVASCULARIZATION; Surgeon: Shahab Buckley MD; Location: IR LAB; Service: Surgical Interventional Radiology Current Outpatient Medications Medication Sig Dispense Refill apixaban 5 mg Tab Take 1 (one) tablet (5 mg total) by mouth 2 (two) times a day . atorvastatin (LIPITOR) 80 MG tablet TAKE 1 TABLET BY MOUTH DAILY . 30 tablet 11 cholecalciferol, vitamin D3, 1,000 unit tablet Take 2 (two) tablets (2,000 Units total) by mouth daily . clopidogreL (PLAVIX) 75 mg tablet TAKE 1 TABLET BY MOUTH EVERY DAY 30 tablet 11 doxycycline (ADOXA) 50 MG tablet Take 1 (one) tablet (50 mg total) by mouth 2 (two) times a day . DULoxetine (CYMBALTA) 20 MG capsule TAKE 1 CAPSULE BY MOUTH EVERY DAY FOR 30 DAYS gabapentin (NEURONTIN) 300 MG capsule Take 1 (one) capsule (300 mg total) by mouth every 8 (eight) hours (Days supply per fill: 4) . (Patient taking differently: Take 1 (one) capsule (300 mg total) by mouth 2 (two) times a day (Days supply per fill: 4) .) 90 capsule 0 HumaLOG KwikPen Insulin 200 unit/mL (3 mL) InPn INJECT 24 UNITS UNDER THE SKIN IN THE MORNING, 24 UNITS AT NOON, 24 UNITS IN THE EVENING WITH MEALS insulin glargine (LANTUS) 100 unit/mL injection Inject 30 (thirty) Units under the skin every morning . Jardiance 10 mg Tab Take 1 (one) tablet (10 mg total) by mouth daily . metoprolol succinate (TOPROL-XL) 25 MG 24 hr tablet Take 1 (one) tablet (25 mg total) by mouth 2 (two) times a day . sacubitriL-valsartan (ENTRESTO) 49-51 mg per tablet Take 1 (one) tablet by mouth 2 (two) times a day . torsemide (DEMADEX) 20 MG tablet Take 4 (four) tablets (80 mg total) by mouth 2 (two) times a day . insulin detemir U-100 (Levemir FlexPen) 100 unit/mL (3 mL) InPn Inject 30 (thirty) Units under the skin every morning . isosorbide mononitrate (IMDUR) 30 MG 24 hr tablet Take 1 (one) tablet (30 mg total) by mouth daily . No current facility-administered medications for this visit. Family History Problem Relation Age of Onset Heart attack Mother Diabetes Mother Heart disease Father Pancreatic cancer Sister Colon cancer Sister Social History Tobacco Use Smoking status: Never Smokeless tobacco: Never Vaping Use Vaping Use: Never used Substance Use Topics Alcohol use: Yes Alcohol/week: 1.0 standard drink of alcohol Types: 1 Cans of beer per week Review of Systems Constitutional: Negative for decreased appetite, malaise/fatigue and weight loss. HENT: Negative for hearing loss, hoarse voice and nosebleeds. Eyes: Negative for double vision, vision loss in left eye and vision loss in right eye. Cardiovascular: Positive for claudication, dyspnea on exertion and palpitations (Atrial fibrillation). Negative for chest pain, leg swelling and orthopnea. Respiratory: Negative for cough, hemoptysis, shortness of breath and sputum production. Endocrine: Negative for cold intolerance, heat intolerance, polydipsia, polyphagia and polyuria. Hematologic/Lymphatic: Does not bruise/bleed easily. Skin: Positive for poor wound healing. Negative for rash and skin cancer. Musculoskeletal: Negative for arthritis, back pain and joint pain. Gastrointestinal: Negative for abdominal pain, hematochezia and melena. Genitourinary: Positive for nocturia (x1). Negative for dysuria, frequency and hematuria. Neurological: Negative for aphonia, brief paralysis and seizures. Psychiatric/Behavioral: Negative for depression and memory loss. The patient is not nervous/anxious. BP 113/68 (BP Location: Left arm, Patient Position: Sitting) Pulse 81 Ht 5' 11 Wt 109.3 kg (241 lb) BMI 33.61 kg/m Physical Exam Constitutional: Appearance: He is [...] on the left side. Femoral pulses are 0 on the right side and 2+ on the left side. Popliteal pulses are 0 on the right side and 0 on the left side. Dorsalis pedis pulses are 0 on the right side and 0 on the left side. Posterior tibial pulses are 0 on the right side and 0 on the left side. Heart sounds: Heart [...] Normal range of motion and neck supple. Right lower le+ Edema present. Left lower le+ Edema present. Feet: Skin: General: Skin is warm and dry. Neurological: Mental Status: He is alert and oriented to person, place, and time. Cranial Nerves: No cranial nerve deficit. Coordination: Coordination normal. Psychiatric: Behavior: Behavior normal. Thought Content: Thought content normal. The note was dictated using [employer] dictation system. The voice recognition software is inherently subject to errors including those of syntax and sound-alike substitutions which may escape proofreading. In such instances, original meaning may be extrapolated by contextual derivation. documented in this encounter [facility] 09-13-2023 History and physical note Images from the original note were not included. Assessment Critical limb ischemia of right lower extremity (HCC) The patient has an extraordinarily challenging problem. He has very significant ischemic cardiomyopathy. He has had cardioversion for his atrial fibrillation but unfortunately he reconverted into atrial fibrillation. His BNP is significantly over 4000 from his chronic heart disease. Patient is volume contracted with diuretic which exacerbates his cardiorenal syndrome. He also has underlying diabetes mellitus. I do not think I can safely get a CT angiogram as an outpatient. I spoke to Dr. Jennifer Palumbo one of our editing intern and we think that the safest option is to admit him as an outpatient for hydration and observation by cardiology as to his volume status and congestive heart failure. After hydration we will get a CT angiogram so I can see what alternatives might be available to revascularize his critical limb ischemia in his right limb. I was hoping that there would be endovascular options since with his cardiac situation open surgery would be extremely hazardous. Our plan is to next Monday admit him for hydration and CT angiography with careful observation. He will probably convert from an outpatient observation status to an inpatient so that I could ultimately intervene for his arterial insufficiency. A thorough explanation of the difficulty with caring for his arterial insufficiency was elucidated to the patient's and the patient. I appreciate Dr. Palumbo's willingness to help me manage his cardiac status for his critical limb ischemia. Gregg AlvaradoKristin 1955 67 y.o. male who presents to the office in consultation for arterial insufficiency in his right lower extremity. I have previously done a right transcarotid arterial revascularization for the patient in December 2021. The patient has developed ischemic ulceration of the left heel which has been treated for 8 months by a email production specialist in his [place], [place]. He has had marked progression of his critical limb ischemia with eschar involving the lateral aspect of the right foot. [facility] his significant congestive heart failure. He has had echocardiography which shows that his ejection fraction is less than 20%. Because of his diabetes and his volume contraction for his congestive heart failure from his ischemic cardiomyopathy the patient's GFR was last reported on July 12, 2023 at 37 mL/min. Past Medical History: Diagnosis Date Apical 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 Chronic kidney disease Diabetes mellitus (HCC) Hypertension Ischemic cardiomyopathy 2012 Past Surgical History: Procedure Laterality Date ASD REPAIR CARDIAC CATHETERIZATION CARDIAC DEFIBRILLATOR PLACEMENT CHOLECYSTECTOMY 11/2020 TRANSCAROTID ARTERY REVASCULARIZATION Right 12/28/2021 Procedure: TRANSCAROTID ARTERY REVASCULARIZATION; Surgeon: Shahab Buckley MD; Location: IR LAB; Service: Surgical Interventional Radiology Current Outpatient Medications Medication Sig Dispense Refill apixaban 5 mg Tab Take 1 (one) tablet (5 mg total) by mouth 2 (two) times a day . atorvastatin (LIPITOR) 80 MG tablet TAKE 1 TABLET BY MOUTH DAILY . 30 tablet 11 cholecalciferol, vitamin D3, 1,000 unit tablet Take 2 (two) tablets (2,000 Units total) by mouth daily . clopidogreL (PLAVIX) 75 mg tablet TAKE 1 TABLET BY MOUTH EVERY DAY 30 tablet 11 doxycycline (ADOXA) 50 MG tablet Take 1 (one) tablet (50 mg total) by mouth 2 (two) times a day . DULoxetine (CYMBALTA) 20 MG capsule TAKE 1 CAPSULE BY MOUTH EVERY DAY FOR 30 DAYS gabapentin (NEURONTIN) 300 MG capsule Take 1 (one) capsule (300 mg total) by mouth every 8 (eight) hours (Days supply per fill: 4) . (Patient taking differently: Take 1 (one) capsule (300 mg total) by mouth 2 (two) times a day (Days supply per fill: 4) .) 90 capsule 0 HumaLOG KwikPen Insulin 200 unit/mL (3 mL) InPn INJECT 24 UNITS UNDER THE SKIN IN THE MORNING, 24 UNITS AT NOON, 24 UNITS IN THE EVENING WITH MEALS insulin glargine (LANTUS) 100 unit/mL injection Inject 30 (thirty) Units under the skin every morning . Jardiance 10 mg Tab Take 1 (one) tablet (10 mg total) by mouth daily . metoprolol succinate (TOPROL-XL) 25 MG 24 hr tablet Take 1 (one) tablet (25 mg total) by mouth 2 (two) times a day . sacubitriL-valsartan (ENTRESTO) 49-51 mg per tablet Take 1 (one) tablet by mouth 2 (two) times a day . torsemide (DEMADEX) 20 MG tablet Take 4 (four) tablets (80 mg total) by mouth 2 (two) times a day . insulin detemir U-100 (Levemir FlexPen) 100 unit/mL (3 mL) InPn Inject 30 (thirty) Units under the skin every morning . isosorbide mononitrate (IMDUR) 30 MG 24 hr tablet Take 1 (one) tablet (30 mg total) by mouth daily . No current facility-administered medications for this visit. Family History Problem Relation Age of Onset Heart attack Mother Diabetes Mother Heart disease Father Pancreatic cancer Sister Colon cancer Sister Social History Tobacco Use Smoking status: Never Smokeless tobacco: Never Vaping Use Vaping Use: Never used Substance Use Topics Alcohol use: Yes Alcohol/week: 1.0 standard drink of alcohol Types: 1 Cans of beer per week Review of Systems Constitutional: Negative for decreased appetite, malaise/fatigue and weight loss. HENT: Negative for hearing loss, hoarse voice and nosebleeds. Eyes: Negative for double vision, vision loss in left eye and vision loss in right eye. Cardiovascular: Positive for claudication, dyspnea on exertion and palpitations (Atrial fibrillation). Negative for chest pain, leg swelling and orthopnea. Respiratory: Negative for cough, hemoptysis, shortness of breath and sputum production. Endocrine: Negative for cold intolerance, heat intolerance, polydipsia, polyphagia and polyuria. Hematologic/Lymphatic: Does not bruise/bleed easily. Skin: Positive for poor wound healing. Negative for rash and skin cancer. Musculoskeletal: Negative for arthritis, back pain and joint pain. Gastrointestinal: Negative for abdominal pain, hematochezia and melena. Genitourinary: Positive for nocturia (x1). Negative for dysuria, frequency and hematuria. Neurological: Negative for aphonia, brief paralysis and seizures. Psychiatric/Behavioral: Negative for depression and memory loss. The patient is not nervous/anxious. BP 113/68 (BP Location: Left arm, Patient Position: Sitting) Pulse 81 Ht 5' 11 Wt 109.3 kg (241 lb) BMI 33.61 kg/m Physical Exam Constitutional: Appearance: He is [...] on the left side. Femoral pulses are 0 on the right side and 2+ on the left side. Popliteal pulses are 0 on the right side and 0 on the left side. Dorsalis pedis pulses are 0 on the right side and 0 on the left side. Posterior tibial pulses are 0 on the right side and 0 on the left side. Heart sounds: Heart [...] Normal range of motion and neck supple. Right lower le+ Edema present. Left lower le+ Edema present. Feet: Skin: General: Skin is warm and dry. Neurological: Mental Status: He is alert and oriented to person, place, and time. Cranial Nerves: No cranial nerve deficit. Coordination: Coordination normal. Psychiatric: Behavior: Behavior normal. Thought Content: Thought content normal. The note was dictated using eGym dictation system. The voice recognition software is inherently subject to errors including those of syntax and sound-alike substitutions which may escape proofreading. In such instances, original meaning may be extrapolated by contextual derivation. [facility] 09-13-2023 Note Formatting of this n ote might be different from the original. Attempted to call number given by office, no answer, voicemail box not set up. Will attempt again. [facility] 09-07-2023 Evaluation + Plan note Associated Problem(s): Critical limb ischemia of right lower extremity (HCC) The patient has an extraordinarily challenging problem. He has very significant ischemic cardiomyopathy. He has had cardioversion for his atrial fibrillation but unfortunately he reconverted into atrial fibrillation. His BNP is significantly over 4000 from his chronic heart disease. Patient is volume contracted with diuretic which exacerbates his cardiorenal syndrome. He also has underlying diabetes mellitus. I do not think I can safely get a CT angiogram as an outpatient. I spoke to Dr. Jennifer Palumbo one of our editing intern and we think that the safest option is to admit him as an outpatient for hydration and observation by cardiology as to his volume status and congestive heart failure. After hydration we will get a CT angiogram so I can see what alternatives might be available to revascularize his critical limb ischemia in his right limb. I was hoping that there would be endovascular options since with his cardiac situation open surgery would be extremely hazardous. Our plan is to next Monday admit him for hydration and CT angiography with careful observation. He will probably convert from an outpatient observation status to an inpatient so that I could ultimately intervene for his arterial insufficiency. A thorough explanation of the difficulty with caring for his arterial insufficiency was elucidated to the patient's and the patient. I appreciate Dr. Palumbo's willingness to help me manage his cardiac status for his critical limb ischemia. [facility] 09-07-2023 Miscellaneous Notes Associated Problem(s): Critical limb ischemia of right lower extremity (HCC) The patient has an extraordinarily challenging problem. He has very significant ischemic cardiomyopathy. He has had cardioversion for his atrial fibrillation but unfortunately he reconverted into atrial fibrillation. His BNP is significantly over 4000 from his chronic heart disease. Patient is volume contracted with diuretic which exacerbates his cardiorenal syndrome. He also has underlying diabetes mellitus. I do not think I can safely get a CT angiogram as an outpatient. I spoke to Dr. Jennifer Palumbo one of our editing intern and we think that the safest option is to admit him as an outpatient for hydration and observation by cardiology as to his volume status and congestive heart failure. After hydration we will get a CT angiogram so I can see what alternatives might be available to revascularize his critical limb ischemia in his right limb. I was hoping that there would be endovascular options since with his cardiac situation open surgery would be extremely hazardous. Our plan is to next Monday admit him for hydration and CT angiography with careful observation. He will probably convert from an outpatient observation status to an inpatient so that I could ultimately intervene for his arterial insufficiency. A thorough explanation of the difficulty with caring for his arterial insufficiency was elucidated to the patient's and the patient. I appreciate Dr. Palumbo's willingness to help me manage his cardiac status for his critical limb ischemia. documented in this encounter [facility] 09-07-2023 History of Present illness Narrative Images from the original note were not included. Assessment Critical limb ischemia of right lower extremity (HCC) The patient has an extraordinarily challenging problem. He has very significant ischemic cardiomyopathy. He has had cardioversion for his atrial fibrillation but unfortunately he reconverted into atrial fibrillation. His BNP is significantly over 4000 from his chronic heart disease. Patient is volume contracted with diuretic which exacerbates his cardiorenal syndrome. He also has underlying diabetes mellitus. I do not think I can safely get a CT angiogram as an outpatient. I spoke to Dr. Jennifer Palumbo one of our editing intern and we think that the safest option is to admit him as an outpatient for hydration and observation by cardiology as to his volume status and congestive heart failure. After hydration we will get a CT angiogram so I can see what alternatives might be available to revascularize his critical limb ischemia in his right limb. I was hoping that there would be endovascular options since with his cardiac situation open surgery would be extremely hazardous. Our plan is to next Monday admit him for hydration and CT angiography with careful observation. He will probably convert from an outpatient observation status to an inpatient so that I could ultimately intervene for his arterial insufficiency. A thorough explanation of the difficulty with caring for his arterial insufficiency was elucidated to the patient's and the patient. I appreciate Dr. Palumbo's willingness to help me manage his cardiac status for his critical limb ischemia. Gregg Foster 1955 67 y.o. male who presents to the office in consultation for arterial insufficiency in his right lower extremity. I have previously done a right transcarotid arterial revascularization for the patient in December 2021. The patient has developed ischemic ulceration of the left heel which has been treated for 8 months by a email production specialist in his [place], [place]. He has had marked progression of his critical limb ischemia with eschar involving the lateral aspect of the right foot. [facility] congestive heart failure. He has had echocardiography which shows that his ejection fraction is less than 20%. Because of his diabetes and his volume contraction for his congestive heart failure from his ischemic cardiomyopathy the patient's GFR was last reported on July 12, 2023 at 37 mL/min. Past Medical History: Diagnosis Date Apical 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 Chronic kidney disease Diabetes mellitus (HCC) Hypertension Ischemic cardiomyopathy 2012 Past Surgical History: Procedure Laterality Date ASD REPAIR CARDIAC CATHETERIZATION CARDIAC DEFIBRILLATOR PLACEMENT CHOLECYSTECTOMY 11/2020 TRANSCAROTID ARTERY REVASCULARIZATION Right 12/28/2021 Procedure: TRANSCAROTID ARTERY REVASCULARIZATION; Surgeon: Shahab Buckley MD; Location: IR LAB; Service: Surgical Interventional Radiology Current Outpatient Medications Medication Sig Dispense Refill apixaban 5 mg Tab Take 1 (one) tablet (5 mg total) by mouth 2 (two) times a day . atorvastatin (LIPITOR) 80 MG tablet TAKE 1 TABLET BY MOUTH DAILY . 30 tablet 11 cholecalciferol, vitamin D3, 1,000 unit tablet Take 2 (two) tablets (2,000 Units total) by mouth daily . clopidogreL (PLAVIX) 75 mg tablet TAKE 1 TABLET BY MOUTH EVERY DAY 30 tablet 11 doxycycline (ADOXA) 50 MG tablet Take 1 (one) tablet (50 mg total) by mouth 2 (two) times a day . DULoxetine (CYMBALTA) 20 MG capsule TAKE 1 CAPSULE BY MOUTH EVERY DAY FOR 30 DAYS gabapentin (NEURONTIN) 300 MG capsule Take 1 (one) capsule (300 mg total) by mouth every 8 (eight) hours (Days supply per fill: 4) . (Patient taking differently: Take 1 (one) capsule (300 mg total) by mouth 2 (two) times a day (Days supply per fill: 4) .) 90 capsule 0 HumaLOG KwikPen Insulin 200 unit/mL (3 mL) InPn INJECT 24 UNITS UNDER THE SKIN IN THE MORNING, 24 UNITS AT NOON, 24 UNITS IN THE EVENING WITH MEALS insulin glargine (LANTUS) 100 unit/mL injection Inject 30 (thirty) Units under the skin every morning . Jardiance 10 mg Tab Take 1 (one) tablet (10 mg total) by mouth daily . metoprolol succinate (TOPROL-XL) 25 MG 24 hr tablet Take 1 (one) tablet (25 mg total) by mouth 2 (two) times a day . sacubitriL-valsartan (ENTRESTO) 49-51 mg per tablet Take 1 (one) tablet by mouth 2 (two) times a day . torsemide (DEMADEX) 20 MG tablet Take 4 (four) tablets (80 mg total) by mouth 2 (two) times a day . insulin detemir U-100 (Levemir FlexPen) 100 unit/mL (3 mL) InPn Inject 30 (thirty) Units under the skin every morning . isosorbide mononitrate (IMDUR) 30 MG 24 hr tablet Take 1 (one) tablet (30 mg total) by mouth daily . No current facility-administered medications for this visit. Family History Problem Relation Age of Onset Heart attack Mother Diabetes Mother Heart disease Father Pancreatic cancer Sister Colon cancer Sister Social History Tobacco Use Smoking status: Never Smokeless tobacco: Never Vaping Use Vaping Use: Never used Substance Use Topics Alcohol use: Yes Alcohol/week: 1.0 standard drink of alcohol Types: 1 Cans of beer per week Review of Systems Constitutional: Negative for decreased appetite, malaise/fatigue and weight loss. HENT: Negative for hearing loss, hoarse voice and nosebleeds. Eyes: Negative for double vision, vision loss in left eye and vision loss in right eye. Cardiovascular: Positive for claudication, dyspnea on exertion and palpitations (Atrial fibrillation). Negative for chest pain, leg swelling and orthopnea. Respiratory: Negative for cough, hemoptysis, shortness of breath and sputum production. Endocrine: Negative for cold intolerance, heat intolerance, polydipsia, polyphagia and polyuria. Hematologic/Lymphatic: Does not bruise/bleed easily. Skin: Positive for poor wound healing. Negative for rash and skin cancer. Musculoskeletal: Negative for arthritis, back pain and joint pain. Gastrointestinal: Negative for abdominal pain, hematochezia and melena. Genitourinary: Positive for nocturia (x1). Negative for dysuria, frequency and hematuria. Neurological: Negative for aphonia, brief paralysis and seizures. Psychiatric/Behavioral: Negative for depression and memory loss. The patient is not nervous/anxious. BP 113/68 (BP Location: Left arm, Patient Position: Sitting) Pulse 81 Ht 5' 11 Wt 109.3 kg (241 lb) BMI 33.61 kg/m Physical Exam Constitutional: Appearance: He is [...] on the left side. Femoral pulses are 0 on the right side and 2+ on the left side. Popliteal pulses are 0 on the right side and 0 on the left side. Dorsalis pedis pulses are 0 on the right side and 0 on the left side. Posterior tibial pulses are 0 on the right side and 0 on the left side. Heart sounds: Heart [...] Normal range of motion and neck supple. Right lower le+ Edema present. Left lower le+ Edema present. Feet: Skin: General: Skin is warm and dry. Neurological: Mental Status: He is alert and oriented to person, place, and time. Cranial Nerves: No cranial nerve deficit. Coordination: Coordination normal. Psychiatric: Behavior: Behavior normal. Thought Content: Thought content normal. The note was dictated using eGym dictation system. The voice recognition software is inherently subject to errors including those of syntax and sound-alike substitutions which may escape proofreading. In such instances, original meaning may be extrapolated by contextual derivation. documented in this encounter [facility] 09-06-2023 Instructions Sophia Gomes MA - 09/06/2023 9:18 AM EST How to contact your Care Team: Provider: MD Kelle Hogan CNP Jill Bender, PA Nurse: Angeles Samano RN To reschedule office appointments call Scheduling [phone] In case of an emergency please call 911. When in need of refills please call the phone number listed above. Please include medication name, pharmacy name and specify 30 or 90 day supply Please check with your pharmacy within 24 hours of your request for refill. You must follow up as directed to continue current refills. Thank you! documented in this encounter [facility] 08-24-2023 History of Present illness Narrative Patient called into office to update that patient has been dealing with wound to right foot for last 8 months. Patients wound doctor recommended that the patient be seen by vascular to review his latest segmental that was done at an out side facility. Leann states she will bring a copy of the segmental when he comes for his carotid scan on 08/30. Appointments made to be seen by Dr. Buckley to review Carotid US, segmental, and address wounds. documented in this encounter [facility] 07-12-2023 Note [facility] 07-12-2023 Instructions Carolina Stover MD - 07/12/2023 11:40 AM EST Thank you for visiting the [facility] at the [facility]. Here are your instructions. 1. No changes to medications. 2. Return in 6 months. Please call with questions or concerns. Office: [phone] Carolina Stover MD documented in this encounter [facility] 07-12-2023 History of Present illness Narrative Images from the original note were not included. Heart and Vascular [facility] SECTION OF HEART FAILURE and CARDIAC TRANSPLANT MEDICINE OUTPATIENT VISIT DATE July 12, 2023 OUTPATIENT VISIT TYPE Established Patient PRIMARY CARE PHYSICIAN: Jeff Cerda MD [address] [facility] [place] [address] CHIEF COMPLAINT: Feeling well NURSING INTAKE (Patient [...] hx CAD (mLAD stent with ISR and CLAIMS ADJUSTER distal to stent without collaterals, rPDA CLAIMS ADJUSTER with Lcx collaterals), ischemic HFrEF (13%) s/p [...] Chronic HFrEF Ischemic cardiomyopathy Wide QRS s/p ANTENNA MACHINE OPERATOR-D upgrade Type II DM CKD Healing [...] changes to medications. Returns in September for ANTENNA MACHINE OPERATOR-D clinic. Return in 6 months. I personally interviewed, confirmed and edited the above information as obtained by others I personally spent 30 minutes in total time involved in the management and care of this patient. We discussed natural history of disease, current treatment options, and future potential treatment options. We discussed diet, exercise, other non-medical management as above. Carolina Stover MD [facility] Section Of Heart Failure and Cardiac Transplant Medicine [facility] Desk [id number] [place] [address] documented in this encounter [facility] 06-27-2023 Evaluation note Diagnosis Research IRB 22-166 [employer]- Primary documented in this encounter [facility]23 History of Present illness Narrative* Travis Sanford RN - 06/27/2023 10:45 AM EST IRB 22-166 [employer] - AN INTERNATIONAL, MULTICENTER, OBSERVATIONAL, SINGLE- ARM, BLINDED STUDY TOASSESS THE PERFORMANCE OF THE [facility] PI: Dr. Aba Wood Study explained/reviewed with patient and spouse. Study related follow-up requirements were discussed. Risks, benefits, alternatives, personnel, and costs of the study explained/reviewed. Patient provided informed consent for review. Study related questions were addressed. Patient declined study participation. Thanked patient and family for their time. Travis Ni RN, BSN Pager [phone] [facility] Inst[facility]* Patient Instructions* Yannick Zuñiga PA-C - 06/27/2023 10:27 AM EST - continue the same medications - consult with dermatology - follow-up with Dr. Stover on 07/12 with labs first [facility] History of Present illness Narrative* Yannick Zuñiga PA-C - 06/27/2023 10:00 AM EST Images from the original note were not included. Heart [facility] Vascular [facility] SECTION OF HEART FAILURE and CARDIAC TRANSPLANT MEDICINE OUTPATIENT VISIT DATE June 27, 2023 OUTPATIENT VISIT TYPE Established Patient PRIMARY CARE PHYSICIAN: Jeff Cerda MD [address] [place] [address] CHIEF COMPLAINT: follow-up HISTORY OF PRESENT ILLNESS: Gregg Foster is a 67 year old male hx CAD (mLAD stent with ISR and CLAIMS ADJUSTER distal to stent without collaterals, rPDA CLAIMS ADJUSTER with Lcx collaterals), ischemic HFrEF (13%) s/p [...] me in June - follow-up with Dr. Stover on 07/12 Since he was last seen, [...] 6.0 cm, RV moderately decreased - s/p ANTENNA MACHINE OPERATOR-D upgrade (LBBB) 03/31/2023 - Warm and [...] 2012 - mLAD stent with ISR and CLAIMS ADJUSTER distal to stent without collaterals, rPDA CLAIMS ADJUSTER with Lcx collaterals - 03/2023: PET Viability: mild ischemia in the territory of the LAD, small scar in LAD territory - [facility] 03/28/2023: LMT normal, LAD mid CLAIMS ADJUSTER, ISR in mid, CLAIMS ADJUSTER distal to stent, LCx 50% mid, RCA diffusedisease with CLAIMS ADJUSTER small RPDA and CLAIMS ADJUSTER r-PDA - medical therapy recommended Atrial Fibrillation - s/p DCCV 06/16/23 - on apixaban PVC's - noted during admission - monitor revealed a 7.1% PVC burden Hypertension - controlled with above meds Gout - on low dose allopurinol T2DM - on insulin CKD PLAN AND RECOMMENDATIONS: - continue the same medications - consult with dermatology - follow-up with Dr. Stover on 07/12 with labs first I personally interviewed, confirmed and edited the above information as obtained by others I personally spent 45 minutes in total time involved in the management and care of this patient. Wediscussed natural history of disease, current treatment options, and future potential treatment options. We discussed diet, exercise, other non-medical management as above. Yannick Monteiro Bosque For Heart Failure Section Of Heart Failure and Cardiac Transplant Medicine Heart and Vascular [place] [facility] Desk J3-[address] [place] [address] documented in this encounterProtestant Deaconess Hospital11-10-2023 History and physical note * Fany Ta, SUDHAKAR.SPANISHER - 06/16/2023 12:00 PM EST Flor Jimenezpoonamcate [address] [address] HPI: Mr. Foster is a 67 yo male with a history of CAD (mLAD stent with ISR and CLAIMS ADJUSTER distal to stent without collaterals, rPDA CLAIMS ADJUSTER with Lcx collaterals), ischemic HFrEF (13%) s/p [...] problems, cold/heat intolerance or hyperlipemia. History by Fany Ta APRN.SPANISHER Physical Examination: BP 112/74 Pulse (!) 51 [...] edema Neuro: Oriented x3, alert, cooperative, Studies: ANTENNA MACHINE OPERATOR-D EVALUATION: 06/16/2023 PRESENTS FOR: AF, DCC [...] 42 ALT (U/L) Date Value 04/13/2023 45 Fany Ta DNP, JUNCTION MAKER Desk J1-4 [id number] [id number] phone [phone] fax [facility] Cardiovascular Medicine, Section of Cardiac Imaging Heart and Vascular [place] documented in this encounterProtestant Deaconess Hospital11-09-2023 NoteOhio[facility]11-09-2023 History of Present illness Narrative* Fany Field, CARRIE - 06/15/2023 12:44 PM EST [...] discussed with Physician, nurse practitioner or Physician laundry assistant upon discharge Instructions for transmitting EKG to Monitoring Center 3 month follow up instructions Contact number for information and questions Patient Evaluation: Verbalizes understanding Follow Up Plan: Follow up as directed by MD. Supplemental Material Given: Written Material Instructed By Fany Field RN. In Department of CARDIOLOGY. documented in this encounterProtestant Deaconess Hospital11-01-2023 Miscellaneous Notes* Telephone Encounter - Sherice Camargo RN - 06/07/2023 4:56 PM EDT Called patient to explain rationale behind ANTENNA MACHINE OPERATOR-HF Clinic follow-up appointment. If needed, also recommended establishing care with Heart Failure prior to 6- month visit in ANTENNA MACHINE OPERATOR-HF Clinic. No answer, patient's mailbox full. Called patient's , no answer, message left with call back requested if questions. Sherice Camargo RN documented in this encounterProtestant Deaconess Hospital10-18-2023 Miscellaneous Notes* Telephone Encounter - Ellie [...] 05/24/2023 6:03 PM EDT ----- Message from Flor Vitale MD sent at 05/12/2023 3:48 PM EDT ----- Regarding: DCC Please bring in for DCC in one month. Verify apixaban. Flor Vitale MD documented in this encounterProtestant Deaconess Hospital10-14-2023 NoteHNO ID: [id number] Author: Note, Interface Service: ? Author Type: ? Type: Progress Notes Filed: 05/20/2023 2:18 AM Note Text: Epic Scheduled Downtime: 05/20/2023 1:00:00 AM to 05/20/2023 1:28:00 [facility]10-10-2023 Miscellaneous Notes* Telephone Encounter - Tisha Rosado RN - 05/16/2023 10:40 AM EDT Prior authorization complete. Patient aware and will fill rx. Tisha Beckman RN documented in this encounterProtestant Deaconess Hospital09-20-2023 [facility]09-20-[facility]09-[facility] History of Present illness Narrative* Rosa M Davila - 04/26/2023 11:31 AM EDT EVENT MONITOR DISPOSABLE PATCH INSTRUCTIONS [facility] [id number] Skin prepped and cleansed with alcohol Patch secured to prepped area Monitor Activated Serial #: [id number] Patient Instructed: Prescribed order timeframe Bathing guidelines Usage of event button and diary documentation Return of monitor at the end of prescribed order Call with problems [phone] or [phone]. [phone] Patient expresses a good understanding of instructions Rosa M De Anda documented in this encounterProtestant Deaconess Hospital09-20-2023 [facility]-20-2023 Instructions* Patient Instructions* Yannick Zuñiga PA-C [...] me in June - follow-up with Dr. Stover on 07/12 documented in this encounterProtestant Deaconess Hospital09-20-2023 History of Present illness Narrative* Yannick Zuñiga PA-C - 04/26/2023 9:13 AM EDT Images from the original note were not included. Heart and Vascular [place] [facility] SECTION OF HEART FAILURE and CARDIAC TRANSPLANT MEDICINE OUTPATIENT VISIT DATE April 26, 2023 OUTPATIENT VISIT TYPE Established Patient PRIMARY CARE PHYSICIAN: Brenda Terrell II, MD [address] [place] [address] CHIEF COMPLAINT: hospital follow-up HISTORY OF PRESENT ILLNESS: Gregg Foster is a 67 year old male hx CAD (mLAD stent with ISR and CLAIMS ADJUSTER distal to stent without collaterals, rPDA CLAIMS ADJUSTER with Lcx collaterals), ischemic HFrEF (13%) s/p [...] consulted and he underwent device upgrade to ANTENNA MACHINE OPERATOR-D. Thereafter hewas diuresed and transitioned to torsemide 80 BID at discharge. He was noted to have frequent PVCs resulting in reduced biV pacing but we were not able to get an inpatient holter prior to discharge, so this will need to be completed in the outpatient setting. He will follow up with Dr. Stover. He has been feeling pretty good since [...] 6.0 cm, RV moderately decreased - s/p ANTENNA MACHINE OPERATOR-D upgrade (LBBB) 03/31/2023 - Warm and [...] 2012 - mLAD stent with ISR and CLAIMS ADJUSTER distal to stent without collaterals, rPDA CLAIMS ADJUSTER with Lcx collaterals - 03/2023: PET Viability: mild ischemia in the territory of the LAD, small scar in LAD territory - [facility] 03/28/2023: LMT normal, LAD mid CLAIMS ADJUSTER, ISR in mid, CLAIMS ADJUSTER distal to stent, LCx 50% mid, RCA diffusedisease with CLAIMS ADJUSTER small RPDA and CLAIMS ADJUSTER r-PDA - medical therapy recommended PVC's - [...] me in June - follow-up with Dr. Stover on 07/12 I personally interviewed, confirmed and edited the above information as obtained by others I personally spent 45 minutes in total time involved in the management and care of this patient. Wediscussed natural history of disease, current treatment options, and future potential treatment options. We discussed diet, exercise, other non-medical management as above. Yannick Monteiro Bosque For Heart Failure Section Of Heart Failure and Cardiac Transplant Medicine Heart and Vascular [place] [facility] Desk J3-4 [address] [place], [place] [address] ADDENDUM Component Latest Ref Rng & Units [...] 5,066 (H) 6,843 (H) documented in this encounterProtestant Deaconess Hospital09-13-2023 Miscellaneous Notes* Telephone Encounter - Zeina [...] pts Name & verified documented in this encounterProtestant Deaconess Hospital09-08-2023 Miscellaneous Notes* Telephone Encounter - Madina Kenney RN - 04/14/2023 5:49 PM EDT Received call back from Allan Oliva with Clinical Cards who advised holding the insulin for blood sugar less than 110. He also suggested I attempt to call Endocrinology commercial sales consultant for a scale /parameters. Received call back from Zulema Daniel (pgr. [id number]), who happened to be aware of patient [...] number to call back. Madina Kenney RN [facility] Resource Center * Telephone Encounter - Madina Kenney RN - 04/14/2023 3:21 PM EDT [facility] Contact Center Inbound Phone Encounter DATE of SERVICE: 04/14/2023 TIME of SERVICE: 3:21 PM Status: Non-urgent, needs attention Service/Provider: Clinical Cardiology Carter-Arlinm, Chete MD Reason for call: Other Issue, blood glucose parameters Contact information: [phone] Resolution[facility], paged high priority Comments: Received call from [...] like to know for the future. Madina Kenney, CARRIE, [facility] Resource Center Date of Resolution: 04/14/2023 Time of Resolution 3:21 PM documented in this encounterProtestant Deaconess Hospital09-08-2023 Miscellaneous Notes* Telephone Encounter - Cain [...] about how to take your medications? YES, Humalog, patient needs clarification if should still give 24units with meals if current glucose is 69. Will hold off administering until speaks with cardiac nurse. 9. Do you have a doctor s appointment scheduled or is someone working on getting you a follow-up appointment? YES Patient contacted - post discharge survey completed - closing statement given. Routed [facility] to [facility] Patient verified name and date of . Cain Higginbotham RN documented in this encounterProtestant Deaconess Hospital09-08-2023 NoteOhiohealth Southeastern Medical Center09-08-2023 History of Present illness Narrative* Mikael Henry, [facility] - 04/14/2023 9:45 AM EDT TRANSITION CARE MANAGEMENT (TCM) HEART FAILURE PHARMACY CONTACT Provider Action/FYI: TCM Medication Reconciliation completed for patient. See medication list table below for details. ACTION REQUIRED: Patient counseled on transferring active eRX from [facility] pharmacy to local pharmacy after [...] oz) Patient was sent a message via VMTurbo including the link to the [facility] Heart Failure education video: N/A-mychart not active Initial contact with patient post discharge, spoke to spouse, Leann,, and verified that any applicable caregiver is active in patient's medical care. Patient identified by name and . Summary: -Pt discharged from [facility] on 04/13/23. -Medication review done Full medication review completed Patient Concerns: Review and discussion of medications with spouse, Leann, as outlined in medication table below. Source of medication information obtained from Medication list. Dispense records from pharmacy also utilized to obtain additional medication fill history. Pt filled via [facility] bedside delivery pharmacy team prior [...] (HCC) Active Problems: 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 Chronic systolic HF (heart failure) ([facility]) Cardiac resynchronization therapy defibrillator (ANTENNA MACHINE OPERATOR-D) in place Cardiomyopathy, ischemic Lower limb ulcer, heel or midfoot, right, with fat layer exposed ([facility]) Obesity, Class II, BMI 35-39.9 Diabetic foot infection (HCC) Resolved Problems: * No resolved hospital problems. * Operations Performed While in the Hospital: None Important Tests/Procedures: ANTENNA MACHINE OPERATOR-D upgrade (new wire place in your ICD) Summary of What Happened When in the Hospital: You presented to [facility] on 03/30/2023 Medication Reconciliation: Legend: Stopped, New, Changed, Added to list Medication List Medication Directions Comments Action/Plan allopurinol (ZYLOPRIM) 100 mg tablet Take a half tablet by mouth once daily. Pick these up at [facility] on pharmacy dispense records with recent fill hx Patient reportedly taking as prescribed without any issues Reviewed change Discontinued: 04/13/2023 10:02 AM PEOPLESOFT ANALYST dose amoxicillin-clavulanic acid (AUGMENTIN) 500-125 mg per tablet Take 1 tablet by mouth every 8 hours.Pick these up at [facility] on pharmacy dispense records with recent fill hx Patient reportedly taking as prescribed without any issues With food Obtain refills from provider- if duration is > 30 days Discontinued: 04/13/2023 10:02 AM D/c PEOPLESOFT ANALYST Reviewed d/c atorvastatin (LIPITOR) 80 mg tablet Take 1 tablet by mouth once daily. on pharmacy dispense recordswith recent fill hx Patient reportedly taking as prescribed without any issues Discontinued: 04/13/2023 10:02 AM D/c PEOPLESOFT ANALYST Metoprolol prescribed at discharge Reviewed d/c clopidogrel [...] back and forth between 20mg and 30mg PEOPLESOFT ANALYST for last 6 months- has PCP appt upcoming - currently at 20mg Patient reportedly taking as prescribed without any issues empagliflozin (JARDIANCE) 10 mg tablet Take 1 tablet by mouth once daily. Pick these up at [facility] on pharmacy dispense records with recent [...] any issues Discontinued: 04/13/2023 10:02 AM D/c PEOPLESOFT ANALYST Reviewed d/c insulin detemir U-100 (LEVEMIR FLEXPEN) 100 unit/mL (3 mL) injection pen Inject 30 Units subcutaneously every morning. Pick these up at [facility] on pharmacy dispense records with recent fill hx Patient reportedly taking as prescribed without any issues Replaces lantus Discontinued: 04/13/2023 10:02 AM D/c PEOPLESOFT ANALYST Levemir prescribed at discharge Reviewed d/c insulin lispro (HUMALOG KWIKPEN) 100 unit/mL Inject 24 Units subcutaneously with MEALS. Pick these up at [facility] on pharmacy dispense records with recent [...] three times daily. Pick these up at [facility] on pharmacy dispense records with recent [...] mouth twice daily. Pick these up at [facility] on pharmacy dispense records with recent [...] you become . [facility] dispense records with recent fill hx Entresto was previously on active med list PEOPLESOFT ANALYST Patient reportedly taking as prescribed without any issues Confrimed was on before Discontinued: 04/13/2023 10:02 AM D/c PEOPLESOFT ANALYST Reviewed d/c torsemide (DEMADEX) 20 mg tablet Take 4 tablets by mouth twice daily. Pick these up at [facility] on pharmacy dispense records with recent fill hx Patient reportedly taking as prescribed without any issues Can move up second dose earlier in day prn Has scale Discontinued: 04/13/2023 10:02 AM PEOPLESOFT ANALYST dosing Discontinued: 04/13/2023 10:02 AM D/c PEOPLESOFT ANALYST Reviewed d/c Preferred pharmacy: e- [facility]/pharmacy #[id number] [place] [address] - [address] [place] [address] [address] [address] [facility] [address] [place] [id number] Estimated Creatinine Clearance: 37 mL/min (A) (based on SCr of 2.43 mg/dL (H)). Estimated Glomerular Filtration Rate (mL/min/1.73m ) Date Value 04/13/2023 29 (L) Additional follow up: Next 5 Appointments Date and Time Provider Department Dept Phone 04/26/2023 10:00 AM Yannick Zuñiga [facility] [phone] 05/12/2023 9:45 AM DEVICE CLINIC [facility] [phone] 07/12/2023 11:15 AM Main, Nurse Card Chf; Carolina Stover [facility] [phone] Interventions Made: Patient education/Medication counseling, Adherence counseling, and AVS medication list discrepancy Pharmacist Recommendations Made Lab request/Therapeutic drug monitoring Care Coordination: Escalated to specialist provider Time spent on patient: 45-60 minutes MIKAEL HENYR, PHARMACIST, [facility] Pharmacy Transitional Care Management April 14, 2023 3:52 PM documented in this encounterProtestant Deaconess Hospital09-07-2023 NoteOhio[facility]09-07-2023 NoteOhio[facility]09-07-2023 NoteOhio[facility]09-06-2023 NoteOhio[facility]09-05-2023 Note [facility]09-04-2023 NoteOhio[facility]09-04-2023 NoteOhio[facility]09-03-2023 NoteOhio[facility] 04-08-2023 NoteOhio[facility]09-01-2023 NoteOhio[facility]08-31-2023 NoteOhio[facility]08-30-2023 NoteOhio[facility]08-30-2023 NoteOhio[facility]08-30-2023 Note [facility]08-29-2023 NoteOhio[facility] Center08-28-2023 NoteOhio[facility]08-27-2023 NoteOhio[facility] 04-01-2023 NoteOhio[facility] Center08-25-2023 NoteOhio[facility]08-25-2023 NoteOhio[facility] Center08-24-2023 NoteOhio[facility]08-23-2023 NoteOhio[facility]08-22-2023 Note [facility]08-21-2023 NoteOhio[facility]08-20-2023 NoteOhio[facility]08-19-2023 NoteOhio[facility] 03-24-2023 NoteOhio[facility] Center08-17-2023 NoteOhio[facility] Center08-17-2023 NoteOhio[facility] Center08-17-2023 NoteOhio[facility] Center08-16-2023 NoteOhio[facility] Center08-15-2023 Note [facility]08-14-2023 NoteOhio[facility] Center08-14-2023 NoteOhiohealth [facility] Center05-31-2023 History of Present illness Narrative* Rogerio Beni Gruber, [facility] - 01/04/2023 8:00 AM EDT [facility] Management ANTICOAGULATION Referring Provider: Dr Ayde [...] or extra doses of warfarin. Went to [facility] for gout flare-up, was given colchicine [...] 01/04/2023 8:23 AM documented in this encounterSENT[facility] Work Phone: [phone]) 232-500505-31-2023 Hospital Discharge instructions* Patient Instructions* Rogerio Gruber [...] your next visit. documented in [facility] encounterSENT[facility] [employer] Phone: 1(506) 828-883104-19-2023 History of Present illness Narrative* Rogerio Gruber RPH - 11/23/2022 8:00 AM EDT [facility] Medication Management ANTICOAGULATION Referring Provider: Dr Nicole GOAL INR: 2.0-3.0 TODAY'S INR: 2.4 WARFARIN [...] PharmD 11/23/2022 8:09 AM documented in this encounterSENT[facility] Work Phone: [phone] 310-770404-19-2023 Hospital Discharge instructions* Patient Instructions* Rogerio Gruber [...] your next visit. documented in this encounterS[facility] [employer] Phone: 1(291) 843-112503-22-2023 History of Present illness Narrative* Rogerio Gruber RPH - 10/26/2022 8:00 AM EDT [facility] Medication Management ANTICOAGULATION Referring Provider: Dr [...] 10/26/2022 9:35 AM [facility] [employer] Work Phone: [phone]) 757-316503-22-2023 Hospital Discharge instructions* Patient Instructions* Rogerio Gruber [...] to your next visit. documented in this encounterWINCHESTER MEDICAL CENTERPrintechnologics Phone: [phone]) 176-670702-15-2023 History of Present illness Narrative* Rogerio Gruber RPH - 09/21/2022 8:00 AM EST [facility] Medication Management ANTICOAGULATION Referring Provider: Dr [...] PharmD 09/21/2022 8:07 AM documented in this encounterCOMMUNITY HE[facility] SYSTEMS [employer] Phone: [phone] Hospital Discharge instructions* Patient Instructions* Rogerio Gruber RPH - 09/21/2022 8:00 AM EST Continue current dose of warfarin as instructed on dosing calendar provided. Continue to monitor urine and stool for signs and symptoms of bleeding. Please notify the clinic of any medication changes. Kindly notify the clinic if you are unable to make to your next appointment. documented in this encounterBON [employer] Work Phone: [phone] Evaluation + Plan note* Assessment & Plan [...] the patient should seek attention at our [facility] emergency room for neuro rescue. I [...] carotid duplex sonography and a clinical visit. [id number] Miscellaneous Notes* Assessment & Plan Note - [...] the patient should seek attention at our [facility] emergency room for neuro rescue. I [...] and a clinical visit. documented in this [id number] History of Present illness Narrative* Shahab Buckley MD - 08/27/2022 8:21 AM EST Assessment No problem-specific Assessment & Plan notes found for this encounter. Gregg Foster 1955 66 y.o. male who presents [...] content normal. The note was dictated using eGym dictation system. The voice recognition software is inherently subject to errors including those of syntax and sound- alike substitutions which may escape proofreading. In such instances, original meaning may be extrapolated by contextual derivation. documented in this [id number] Instructions* Patient Instructions* Sophia Gomes MA - 08/26/2022 3:26 PM EST How to contact your Care Team: Provider: MD Kelle Hogan CNP Jill Bender, PA Nurse: Angeles Samano RN To reschedule office appointments call Scheduling [phone] In case of an emergency please call 911. When in need of refills please call the phone number listed above. Please include medication name, pharmacy name and specify 30 or 90 day supply Please check with your pharmacy within 24 hours of your request for refill. You must follow up as directed to continue current refills. Thank you! documented in this [id number] History of Present illness Narrative* Rogerio Gruber, [facility] - 08/24/2022 8:00 AM EST [facility] Medication Management ANTICOAGULATION Referring Provider: Dr Nicole [...] PharmD 08/24/2022 8:28 AM documented in this encounterSENT[facility] Work Phone: [phone]) 922-995001-18-2023 Hospital Discharge instructions* Patient Instructions* Rogerio Gruber RPH - 08/24/2022 8:00 AM EST Decrease current dose of warfarin as instructed on dosing calendar provided. Continue to monitor urine and stool for signs and symptoms of bleeding. Please notify the clinic of any medication changes. Kindly notify the clinic if you are unable to make to your next appointment. documented in this encounterHenrico [facility] Phone: [phone]) 357-465712-21-2022 History of Present illness Narrative* Rogerio Gruber RPH - 07/27/2022 8:00 AM EST [facility] Medication Management ANTICOAGULATION Referring Provider: Dr [...] 8:21 AM documented in this encounterWINCHESTER MEDICAL CENTERPrintechnologics Phone: [phone] Hospital Discharge instructions* Patient Instructions* Rogerio Gruber RPH - 07/27/2022 8:00 AM EST Decrease current dose of warfarin as instructed on dosing calendar provided. Continue to monitor urine and stool for signs and symptoms of bleeding. Please notify the clinic of any medication changes. Kindly notify the clinic if you are unable to make to your next appointment. documented in this encounterWINCHESTER MEDICAL CENTERPrintechnologics Phone: [phone] 114-473610-26-2022 History of Present illness Narrative* Rogerio Gruber RPH - 06/01/2022 8:00 AM EDT [facility] Medication Management ANTICOAGULATION Referring Provider: Dr [...] PharmD 06/01/2022 8:22 AM documented in this encounterWINCHESTER MEDICAL CENTERPrintechnologics Phone: [phone] Hospital Discharge instructions* Patient Instructions* Rogerio Gruber RPH - 06/01/2022 8:00 AM EDT Decrease current dose of warfarin as instructed on dosing calendar provided. Continue to monitor urine and stool for signs and symptoms of bleeding. Please notify the clinic of any medication changes. Kindly notify the clinic if you are unable to make to your next appointment. documented in this encounterWINCHESTER MEDICAL CENTERPrintechnologics Phone: 1(278) 308-668109-21-2022 History of Present illness Narrative* Rogerio Gruber RPH - 04/27/2022 8:00 AM EDT [facility] Medication Management ANTICOAGULATION Referring Provider: Dr [...] PharmD 04/27/2022 8:24 AM documented [facility] Work Phone: 1([phone]) 396-735809-21-2022 Hospital Discharge instructions* Patient Instructions* Rogerio Gruber RPH - 04/27/2022 8:00 AM EDT Increase current dose of warfarin as instructed on dosing calendar provided. Continue to monitor urine and stool for signs and symptoms of bleeding. Please notify the clinic of any medication changes. Kindly notify the clinic if you are unable to make to your next appointment. documented in this [facility] Work Phone: 1(226) 186-987408-24-2022 History of Present illness Narrative* Rogerio Gruber RPH - 03/30/2022 8:00 AM EDT [facility] Medication Management ANTICOAGULATION Referring Provider: Dr [...] 03/30/2022 8:13 AM documented in [facility] Work Phone: [phone]) [phone] Hospital Discharge instructions* Patient Instructions* Rogerio Gruber RPH - 03/30/2022 8:00 AM EDT Continue current dose of warfarin as instructed on dosing calendar provided. Continue to monitor urine and stool for signs and symptoms of bleeding. Please notify the clinic of any medication changes. Kindly notify the clinic if you are unable to make to your next appointment. documented in this encounterCOMMUNITY HEALTH SYSTEMS [employer] Phone: [phone]) [phone] History of Present illness Narrative* Rogerio Gruber RPH - 03/16/2022 8:20 AM EDT [facility] Medication Management ANTICOAGULATION Referring Provider: Dr [...] PharmD 03/16/2022 8:35 AM documented in [facility] Work Phone: [phone]) [phone] Hospital Discharge instructions* Patient Instructions* Rogerio Gruber RPH - 03/16/2022 8:20 AM EDT Increase current dose of warfarin as instructed on dosing calendar provided. Continue to monitor urine and stool for signs and symptoms of bleeding. Please notify the clinic of any medication changes. Kindly notify the clinic if you are unable to make to your next appointment. documented in [facility] Work Phone: [phone]) [phone] History of Present illness Narrative* Rogerio Gruber RPH - 03/02/2022 8:00 AM EDT [facility] Medication Management ANTICOAGULATION Referring Provider: Dr [...] PharmD 03/02/2022 8:13 AM documented in this [facility] Work Phone: [phone] Hospital Discharge instructions* Patient Instructions* Rogerio Gruber RPH - 03/02/2022 8:00 AM EDT Increase current dose of warfarin as instructed on dosing calendar provided. Continue to monitor urine and stool for signs and symptoms of bleeding. Please notify the clinic of any medication changes. Kindly notify the clinic if you are unable to make to your next appointment. documented in this [facility] Work Phone: [phone]) [phone] History of Present illness Narrative* Marion Bell RPH - 02/22/2022 8:20 AM EDT [facility] Medication Management ANTICOAGULATION Referring Provider: Dr Nicole GOAL INR: 2.0-3.0 TODAY'S INR: 1.4 WARFARIN Dosage: increase dosing to 1.25mg Sun/Thurs, 2.5mg all other days INR (no units) [...] Bell R.Ph., 02/22/2022,10:21 AM documented in this encounterUMASS [facility]ORIAL [facility]ENTERPrintFu Phone: [phone]) 922-304807-19-2022 Hospital Discharge instructions* Patient Instructions* Marion Bell RPH - 02/22/2022 8:20 AM EDT Please increase your dosing to take 1/2 tablet (1.25mg) on Sundays and and 1 tablet(2.5mg) all other days. Continue to monitor for signs of bleeding. Return to coumadin clinic in 8 days. documented in this encounterUMASS MEMORIAL MEDICAL CENTERPrintFu Phone: 1([phone]) 344-348507-09-2022 Evaluation + Plan note* Assessment & Plan [...] infarction and high intensity statin therapy follows [place] [employer] guidelines. [id number] Miscellaneous Notes* Assessment & Plan Note - [...] infarction and high intensity statin therapy follows [place] [employer] guidelines. documented in this [id number] History of Present illness Narrative* Shahab Buckley [...] infarction and high intensity statin therapy follows [place] [employer] guidelines. Gregg Foster 1955 66 y.o. male who presents [...] or hematoma. The note was dictated using eGym dictation system. The voice recognition software is inherently subject to errors including those of syntax and sound- alike substitutions which may escape proofreading. In such instances, original meaning may be extrapolated by contextual derivation. documented in this [id number] Instructions* Patient Instructions* Sophia Gomes MA - 02/11/2022 3:42 PM EDT How to contact your Care Team: Provider: MD Kelle Hogan CNP Jill Bender, PA Nurse: Angeles Samano RN To reschedule office appointments call Scheduling [phone] In case of an emergency please call 911. When in need of refills please call the phone number listed above. Please include medication name, pharmacy name and specify 30 or 90 day supply Please check with your pharmacy within 24 hours of your request for refill. You must follow up as directed to continue current refills. Thank you! documented in this [id number] History of Present illness Narrative* Raffy Richardson, [facility] - 02/03/2022 7:40 AM EDT [facility] Medication Management ANTICOAGULATION Referring Provider: Dr. Ayde Nicole GOAL INR: 2.0-3.0 TODAY'S INR: WARFARIN Dosage: INR (no units) Date Value 01/27/2022 6.8 01/20/2022 2.6 01/13/2022 6.2 01/06/2022 2.5 12/22/2021 6.8 12/09/2021 3.3 11/16/2021 1.9 Medication changes: None Notes: Fingerstick INR drawn per clinic protocol. Patient states no visible blood in urine and no black tarry stool. Following his INR of 6.8 on 01/27/2022, Gregg confirms that he skipped his warfarinfor 3 days and has taken 1.25 mg warfarin for the past 4 doses as instructed prior to this INR check today. Denies having taken any extra doses of warfarin. As discussed previously, Gregg had a carotid enterectomy and stent placement per Dr. Buckley on 12-28-2021 (due to 80-99% right carotid stenosis per CT scan). He had started Plavix 75 mg daily on 12/10/2021 (which can increase INR) and switched from Simvastatin to Atorvastatin 80 mg daily after the procedure. Gregg had been taking Gabapentin 300 mg TID [...] bed). No other changes in maintenance medications. Gregg's weight continues to decline since surgery, although [...] Richardson RPH, PharmD documented in this encounterS[facility] Work Phone: 1([phone]) [phone] Hospital Discharge instructions* Patient Instructions* Raffy Richardson [...] your next appointment. documented in this encounterS[facility] Work Phone: [phone]) [phone] History of Present illness Narrative* Raffy Richardson RPH - 01/27/2022 8:00 AM EDT [facility] Medication Management ANTICOAGULATION Referring Provider: Dr. [...] Following his INR of 2.6 on 01/20/2022, Gregg confirms that he has taken 2.5 mg warfarin x 6 doses and skipped warfarin on 01/21/2022 as instructed prior to this INR check today. Denies having taken any extra doses of warfarin. As discussed previously, Grgeg had a carotid enterectomy and stent placement per Dr. Buckley on 12-28-2021 (due to 80-99% right carotid stenosis per CT scan). He had started Plavix 75 mg daily on 12/10/2021 (which can increase INR) and switched from Simvastatin to Atorvastatin 80 mg daily after the procedure. Gregg had been taking Gabapentin 300 mg TID [...] out of bed. Also discussed last week, Gregg had a corticosteroid shot in his right shoulder per Dr. Guadarrama last week. All other medications reviewed for accuracy. No other changes in maintenance medications. Gregg's weight continues to decline since surgery, although [...] 3 Time Spent (min): 30 Raffy Richardson RP, PharmD documented in this encounterWINCHESTER MEDICAL CENTERNeocis Work Phone: 1([phone] Hospital Discharge instructions* Patient Instructions* Raffy Richardson [...] to your next appointment. documented in this encounterWINCHESTER MEDICAL CENTERNeocis Work Phone: [phone]) [phone] History of Present illness Narrative* Raffy Richardson RPH - 01/20/2022 7:40 AM EDT [facility] Medication Management ANTICOAGULATION Referring Provider: Dr. [...] no black tarry stool. As discussed previously, Gregg had a carotid enterectomy and stent placement per Dr. Buckley on 12-28-2021 (due to 80-99% right carotid stenosis per CT scan). He stopped taking his warfarin for 4 days prior to this procedure and resumed warfarin dosing as instructed post-procedurally. Following his supra-therapeutic INR of 6.2 on 01/13/2022, Gregg skipped his warfarin for 3 days and then took only 2.5 mg warfarin for the past 3 doses as instructed prior to this INR check today.He had started Plavix 75 mg daily on 12/10/2021 (which can increase INR) and Dr. Buckley had also stopped his Simvastatin and switched him to Atorvastatin 80 mg daily after the procedure. Gregg had still been having significant left arm [...] it is healing and looks better today. Gregg tells me that he did have a corticosteroid shot in his right shoulder per Dr. Guadarrama a couple daysago and followed up with Dr. Buckley, his surgeon, earlier this week. No change in other maintenance medications or in diet. Gregg's pulse is reading low again today here in the clinic. He says it's always good at home and was good at Dr. Guadarrama's this week . He will continue to check it throughout the day while at home. I have recommended that he go to the ER if his dizziness/lightheadedne ss does not improve or gets any worse [...] Raffy Richardson RP, PharmD documented in this encounterCOMMUNITY HEALTH SYSTEMS [employer] Work Phone: [phone] Hospital Discharge instructions* Patient Instructions* Raffy Richardson [...] to your next appointment. documented in [facility] encounterHen[facility] Phone: [phone]) [phone] History of Present illness Narrative* Raffy Richardson RPH - 01/13/2022 7:40 AM EDT [facility] Medication Management ANTICOAGULATION Referring Provider: Dr. [...] missed doses of warfarin. As discussed previously, Gregg had a carotid enterectomy and stent placement per Dr. Buckley on 12-28-2021 (due to 80-99% right carotid stenosis per CT scan). He stopped taking his warfarin for 4 days prior to this procedure and resumed warfarin dosing as instructed prior to this INR check today. Following INR of 2.5 on 01/06/2022, Gregg confirms that he has taken 5 mg warfarin x 1 dose and 2.5 mg warfarin x 6 doses as instructed prior to this INR check today. He had started Plavix 75 mg daily on 12/10/2021 (which can increase INR). Also, Dr. Buckley stopped his Simvastatin and switched him to Atorvastatin 80 mg daily after the procedure.Gregg says he continues to have significant left arm pain and bruising in the area where the IV wasplaced during the procedure and has developed shakiness/tremor in both upper extremities. He went to the ER on 01/07/2022 due to concerns for blood clot and had an ultrasound on 01/08/22 that was negative for DVT of left upper extremity. Gregg says he was instructed to increase his [...] in other maintenance medications or in diet. Gregg takes his warfarin in the AM and [...] Richardson RPH, PharmD documented in this encounterS[facility] Work Phone: [phone] Hospital Discharge instructions* Patient Instructions* Raffy Richardson RP - 01/13/2022 7:40 AM EDT Decrease current [...] to your next appointment. documented in this encounterCOMMUNITY HEALTH SYSTEMS [employer] Work Phone: [phone] 412-940706-03-2022 Hospital Discharge instructions* Instructions* Lonnie Hart MD [...] sent through Care Everywhere. * Arm Pain (Georgian) * DVT (Deep Vein Thrombosis): General Info (Georgian) documented in this encounterWINCHESTER MED[facility]ENTERNeocis Work Phone: 1([phone]) 116-297206-02-2022 History of Present illness Narrative* Raffy Richardson RPH - 01/06/2022 7:40 AM EDT [facility] Medication Management ANTICOAGULATION Referring Provider: Dr. [...] warfarin. As discussed during his last appointment, Gregg had a CT scan of the neck in [place] per Dr. Buckley which showed a blocked artery (80-99% right carotid stenosis). He had a procedure for stent placement on December 28 and stopped taking his warfarin for 4 days prior to this procedure. He was started on Plavix 75 mg daily as of 12/10/2021 (which can increase INR). Gregg skipped his warfarin from 12/22/2021 through 12/27/2021 due to supra-therapeutic INR at his last visit. He says he restarted his warfarin the night of the procedure in the evening and has taken 5 mg warfarin on Wednesdays and 2.5 mg warfarin all other days of the week as instructed prior to this INR check today. Gregg also tells me that Dr. Buckley stopped his Simvastatin after the procedure, but he is unsure why. He has a follow up visit with Dr. Buckley in [facility] . No change in other maintenance medications or in diet. Gregg's pulse is reading low today here in [...] Raffy Richardson RPH, PharmD documented in this encounterBON SECOURS 2NGageUCatholic Health Phone: [phone] Hospital Discharge instructions* Patient Instructions* Raffy Richardson [...] to your next appointment. documented in this encounterHenrico [facility] Phone: [phone] Hospital course Narrative* Mary Jane Chavarria PA-C - 12/29/2021 9:46 AM EDT DISCHARGE SUMMARY Patient: Gregg Foster Date of : 1955 Site: [facility] Provider: Jeff Cerda MD Admit Date: 12/28/2021 Discharge Date/Time: 12/29/21 Morning Disposition: Home Clinical Summary Hospital Course: Gregg Foster is a 66 y.o. male patient [...] Family Provider: Jeff Cerda MD, Address: [address] [address] Follow Up: Shahab Buckley MD [address] [facility] [address] Follow up on 02/11/2022 3rd floor MOB @ 3:00 pm -please arrive 15 min early SCAN to be performed prior to follow up Jeff Cerda MD [address] [facility] [address] Follow up 1-2 weeks hospital follow up Additional Information: Echocardiogram ordered with results pending prior to discharge Patient instructions, including activity, were given to the patient/family at discharge. Please seethe After Visit Summary in the electronic medical record for details. Time spent on discharge: < 30 minutes Completed by: Mary Jane Chavarria PA-C on 12/29/21, 10:06 AM documented in this [id number] History of Present illness Narrative* Shante Troncoso - 12/29/2021 9:45 AM EDT Spiritual Care Progress Note Completed by: Shante Troncoso Person(s) Present During this Visit: Patient Time Spent in Direct Patient Care: 15 Narrative: While rounding locator specialist introduced self and role. Information regarding pastoral care services and how to contact was provided. No family present. The Pastoral Care team will remain available to support patient as needed/requested. Patients Response to Pastoral Care: Appeared to be not engaged Planning for Future Visits: JOSE F Troncoso MDiv Staff Box Worker Pastoral Care Department [facility] [phone] on-call [phone] office 12/29/21 0925 Visit Background Visit With Patient Visit By Staff Box Worker Visit Progression Introduction Visit Requested By Box Worker Initiated Visit Source Box Worker Initiated Visit Type Inpatient;Rounding Visit Circumstances and Events Routine Visit Visit Length (minutes) 15 Patient's Response to Pastoral Care Appeared to be not engaged Visit Planning PRN Spiritual Assessment Not assessed during visit Druze Assessment Not assessed during this visit Family assessment provided? Not assessed during this visit documented in this [id number] Note* Quick Note - Yanelis Blackmon RN - 12/29/2021 9:14 AM EDT Stroke cart post op assessment complete. [id number] Miscellaneous Notes* Quick Note - Yanelis Blackmon [...] Transcarotid arterial revascularization Surgeon: Shahab Buckley M.D. [facility] Fluoroscopy dose: 34.15 Gycm2 Contrast: 70 mL of Isovue-300 HISTORY: The patient is a 66year-old gentleman who presents with a high-grade stenosis of the rightinternal carotid artery. Clinical information and imaging suggests that this stenosis is symptomatic. The indications, risks, benefits and alternatives of the trans-carotid arterial revascularizationprocedure based on the data from the NIH submission data from the [facility] trial was explained to the patient. We offered the alternatives of carotid endarterectomy and transfemoral stenting. Becauseof the low morbidity and mortality the patient elected to go with the post approval trial sponsoredby the [facility] and [facility] for transcarotid arterial revascularization. PROCEDURE: The patient [...] artery appears to be widely patent without evidence of embolization. The M1, M2 and M3 portions of the middle cerebral artery appear to be widely patent but diseased. There is normal arborization of the middle cerebral artery without evidence of embolization. The posterior cerebral communicating artery is not visualized. IMPRESSION: Uneventful right transcarotid arterial revascularization for symptomatic carotid occlusive disease. The note was dictated using eGym dictation system. The voice recognition software is inherently subject to errors including those of syntax and sound- alike substitutions which may escape proofreading. In such instances, original meaning may be extrapolated by contextual derivation. * Brief Op Note - Shahab Buckley MD - 12/28/2021 11:58 AM EDT Brief Post Operative Note Patient Name: Gregg Foster : 1955 (66 y.o.) Date of Service: 12/28/2021 [facility]: [id number] Procedure(s): TRANSCAROTID ARTERY REVASCULARIZATION ANGIOGRAPHY IMAGING Pre-Operative Diagnoses: * Symptomatic right carotid stenosis Post-Operative Diagnoses: * Symptomatic right carotid stenosis * Symptomatic stenosis of right carotid artery [I65.21] Surgeon(s) and Role: * Shahab Buckley MD - Primary Anesthesiologist: Tin Lei MD DISPATCHER CHIEF OIL: Cheyenne Brooks CRNA Student Nurse Geotechnical Engineer: [facility] Video Specialist: Yanet Warren, TECHNOLOGIST Scrub Person: Osiris Chapman, TECHNOLOGIST; Miko Grimes TECHNOLOGIST Electrical Engineer Orientee: Celeste Beltran RN Electrical Engineer Preceptor: Kathi Medina RN Scrub Person Preceptor: ST Davi Scrub Person Orientee: Velma Palumbo RN ORKip PRECEPTOR: Katya Dyer Operative findings: 99% stenosis now completely corrected with PEOPLESOFT ANALYST/stent right internal carotid artery Intra and immediate post-operative complications: none Type of anesthesia used: General anesthesia Estimated blood loss: 20 mL Implant(s): Implant Name Type Inv. Item Serial No. Forklift Wheel Loader Lot No. LRB No. Used Action STENT 9 X 30MM TRANSCAROTID ENROUTE - SN/A Stent STENT 9 X 30MM TRANSCAROTID ENROUTE N/A [facility] [id number] Right 1 Implanted Wound(s): Wound 12/28/21 1 Surgical Wound Neck Right (Active) Wound Closure Sutures 12/14/21 0002 Wound 12/28/21 2 Surgical Wound Groin Anterior;Right (Active) Wound Closure Sutures;Surgical Adhesive 12/14/21 0002 Shahab Buckley MD 12/28/2021 3:09 PM documented in this [id number] Note* Plan of Care - Belia Ponce [...] Absence of pressure ulcer Outcome: Not Met [id number] Consult note* Sadiq Elizondo MD - 12/28/2021 5:57 PM EDTAssociated Order(s): IP CONSULT TO CARDIOLOGY Please see consult note from today [facility] Work Phone: 1([phone]) [phone] Consult note* Sadiq Elizondo MD - 12/28/2021 5:57 PM EDTAssociated Order(s): IP CONSULT TO CARDIOLOGY Please see consult note from today * Sadiq Elizondo MD - 12/28/2021 5:05 PM EDT General Cardiology Inpatient Consult Heart & Vascular [facility] 12/28/2021 Sadiq Elizondo MD [facility] Patient: Gregg Foster Date of : 1955 (66 y.o.) Referring Provider: Refer to consult order in electronic medical record PCP: Jeff Cerda MD Assessment/Plan: Gregg Foster is a 66 y.o. male with [...] see assessment and plan for further details. Sadiq Elizondo MD [facility] Non-Invasive Cardiology [facility] Heart and Vascular Subjective Reason for Consultation: Nausea and diaphoresis History of Present Illness: Gregg Foster is a 66 y.o. male with [...] results found for: NTPROBNP documented in this [id number] Consult note* Sadiq Elizondo MD - 12/28/2021 5:05 PM EDT General Cardiology Inpatient Consult Heart & Vascular [facility] 12/28/2021 Sadiq Elizondo MD [facility] Patient: Gregg Foster Date of : 1955 (66 y.o.) Referring Provider: Refer to consult order in electronic medical record PCP: Jeff Cerda MD Assessment/Plan: Gregg Foster is a 66 y.o. male with [...] see assessment and plan for further details. Sadiq Elizondo MD [facility] Non-Invasive Cardiology [facility] Heart [facility] Vascular Subjective Reason for Consultation: Nausea and diaphoresis History of Present Illness: Gregg Foster is a 66 y.o. male with [...] 33 12/28/2021 No results found for: NTPROBNP [id number] Note* Quick Note - Tiffani Hills RN - 12/28/2021 4:40 PM EDT Notified Ghafoori of K+ 5.2 and other lab values. [id number] Attending History and physical note* Shahab Buckley MD - 12/28/2021 11:58 AM EDT INTERVAL HISTORY AND PHYSICAL Patient Name: Gregg Foster Admit Date: [id number] MR #: [id number] : 1955 The H&P has been reviewed [...] based on the data from the [place] Stroke and Carotid Endarterectomy Trial. The patient [...] moderate doses of a statin medication simvastatin. Gregg Foster 1955 66 y.o. male who presents [...] content normal. The note was dictated using eGym dictation system. The voice recognition software is inherently subject to errors including those of syntax and sound- alike substitutions which may escape proofreading. In such instances, original meaning may be extrapolated by contextual derivation. [id number] Note* Op Note - Shahab Buckley MD [...] from the NIH submission data from the [facility] trial was explained to the patient. We offered the alternatives of carotid endarterectomy and transfemoral stenting. Becauseof the low morbidity and mortality the patient elected to go with the post approval trial sponsoredby the [facility] and [facility] for transcarotid arterial revascularization. PROCEDURE: The patient [...] occlusive disease. The note was dictated using eGym dictation system. The voice recognition software is inherently subject to errors including those of syntax and sound- alike substitutions which may escape proofreading. In such instances, original meaning may be extrapolated by contextual derivation. [id number] Note* Brief Op Note - Shahab Buckley MD - 12/28/2021 11:58 AM EDT Brief Post Operative Note Patient Name: Gregg Foster : 1955 (66 y.o.) Date of Service: 12/28/2021 CSN: [id number] Procedure(s): TRANSCAROTID ARTERY REVASCULARIZATION ANGIOGRAPHY IMAGING Pre-Operative Diagnoses: * Symptomatic right carotid stenosis Post-Operative Diagnoses: * Symptomatic right carotid stenosis * Symptomatic stenosis of right carotid artery [I65.21] Surgeon(s) and Role: * Shahab Buckley MD - Primary Anesthesiologist: Tin Lei MD DISPATCHER CHIEF OIL: Cheyenne Brooks CRNA Student Nurse Geotechnical Engineer: [facility] Video Specialist: Yanet Warren, TECHNOLOGIST Scrub Person: Osiris Chapman, TECHNOLOGIST; Miko Grimes, TECHNOLOGIST Electrical Engineer Orientee: Celeste Beltran RN Electrical Engineer Preceptor: Kathi Medina RN Scrub Person Preceptor: ST Davi Scrub Person Orientee: Velma Palumbo RN ORA PRECEPTOR: Katya Dyer Operative findings: 99% stenosis now completely corrected with PEOPLESOFT ANALYST/stent right internal carotid artery Intra and immediate post-operative complications: none Type of anesthesia used: General anesthesia Estimated blood loss: 20 mL Implant(s): Implant Name Type Inv. Item Serial No. Forklift Wheel Loader Lot No. LRB No. Used Action STENT 9 X 30MM TRANSCAROTID ENROUTE - SN/A Stent STENT 9 X 30MM TRANSCAROTID ENROUTE N/A [facility] [id number] Right 1 Implanted Wound(s): Wound 12/28/21 1 Surgical Wound Neck Right (Active) Wound Closure Sutures 12/14/21 0002 Wound 12/28/21 2 Surgical Wound Groin Anterior;Right (Active) Wound Closure Sutures;Surgical Adhesive 12/14/21 0002 Shahab Buckley MD 12/28/2021 3:09 PM [id number] History and physical note* Shahab Buckley MD - 12/28/2021 11:58 AM EDT INTERVAL HISTORY AND PHYSICAL Patient Name: Gregg Foster Admit Date: [id number] MR #: [id number] : 1955 The H&P has been reviewed [...] based on the data from the [place] Stroke and Carotid Endarterectomy Trial. The patient [...] moderate doses of a statin medication simvastatin. Gregg Foster 1955 66 y.o. male who presents [...] content normal. The note was dictated using eGym dictation system. The voice recognition software is inherently subject to errors including those of syntax and sound- alike substitutions which may escape proofreading. In such instances, original meaning may be extrapolated by contextual derivation. documented in this [id number] Nurse Note* Jessica De León RN - 12/28/2021 10:[address] Martinez completing neurology assessment [id number] Nurse Note* Jessica De León RN - 12/28/2021 10:[address] Martinez completing neurology assessment documented in this [id number] History of Present illness Narrative* Raffy Richardson, [facility] - 12/22/2021 7:40 AM EDT [facility] Medication Management ANTICOAGULATION Referring Provider: [...] warfarin. As discussed during his last appointment, Gregg's proof machine operator had noted retinal embolization so he recommended duplex sonography of the carotid arteries. He had a CT scan of the neck in [place] per Dr. Buckley and has a blocked artery (80-99% right carotid stenosis). Gregg says he will have a procedure for [...] Raffy Richardson RPH, PharmD [facility] Phone: [phone]) 952-222505-18-2022 Hospital Discharge instructions* Patient Instructions* Raffy Richardson [...] to your next appointment. documented in this [employer] Phone: [phone]) 553-118305-14-2022 History of Present illness Narrative* Shahab Buckley [...] revascularization for the last2 years in the [facility]. The institutional complication rate is significantly below 6% requested by the patient's insurance company. documented in this [id number] Evaluation + Plan note* Assessment & Plan Note - Shahab Buckley MD - 12/09/2021 11:07 PM EDT Associated Problem(s): Symptomatic stenosis of right carotid artery I think the patient would benefit from carotid intervention based on the data from the [place] Stroke and Carotid Endarterectomy Trial. The patient [...] moderate doses of a statin medication simvastatin. [id number] Miscellaneous Notes* Assessment & Plan Note - Shahab Buckley MD - 12/09/2021 11:07 PM EDTAssociated Problem(s): Symptomatic stenosis of right carotid artery I think the patient would benefit from carotid intervention based on the data from the [place] Stroke and Carotid Endarterectomy Trial. The patient [...] a statin medication simvastatin. documented in this [id number] History of Present illness Narrative* Shahab Buckley MD - 12/09/2021 11:05 PM EDT Assessment Symptomatic stenosis of right carotid artery I think the patient would benefit from carotid intervention based on the data from the [place] Stroke and Carotid Endarterectomy Trial. The patient [...] moderate doses of a statin medication simvastatin. Gregg Foster 1955 66 y.o. male who presents [...] content normal. The note was dictated using eGym dictation system. The voice recognition software is inherently subject to errors including those of syntax and sound- alike substitutions which may escape proofreading. In such instances, original meaning may be extrapolated by contextual derivation. documented in this [id number] History of Present illness Narrative* Raffy Richardson, [facility] - 12/09/2021 7:40 AM EDT [facility] Medication Management ANTICOAGULATION Referring Provider: Dr. Ayde [...] stool. Denies any missed doses of warfarin. Gregg had an eye appointment since his last visit here in the clinic and his proof machine operator noted retinal embolization so he recommended duplex sonography of the carotid arteries. Gregg says he had a CT scan of the neck in [place] earlier this week per Dr. Buckley and has a blocked artery . Upon further chart review, it was noted that he has 80-99% right carotid stenosis. Gregg says he will have a procedure for stent placement either December 14 or December 28 and is supposed to hear back by the end of this week . Knowing that he will be starting Plavix 75 mg daily post stent placement (which can increase INR), we will need to take this into consideration for future warfarin dosing. Gregg says he will notify our clinic when [...] to be scheduled next week). Patient herlinda owledges working in consult agreement with pharmacist as referred by his/her physician. For Pharmacy Admin Tracking Only Intervention Detail: Adherence Monitorin and Dose Adjustment: 1, reason: Therapy Optimization Total # of Interventions Recommended: 2 Total # of Interventions Accepted: 2 Time Spent (min): 30 Raffy Richardson RPH, PharmD [facility] Phone: [phone]) 905-173205-05-2022 Hospital Discharge instructions* Patient Instructions* Raffy Richardson [...] to your next appointment. [facility] Phone: [phone]) 540-202805-04-2022 Instructions* Patient Instructions* Sophia Gomes MA - 12/08/2021 3:52 PM EDT How to contact your Care Team: Provider: MD Kelle Hogan CNP Jill Bender, PA Nurse: Angeles Samano RN To reschedule office appointments call Scheduling [phone] In case of an emergency please call 911. When in need of refills please call the phone number listed above. Please include medication name, pharmacy name and specify 30 or 90 day supply Please check with your pharmacy within 24 hours of your request for refill. You must follow up as directed to continue current refills. Thank you! documented in this [id number] History of Present illness Narrative* Raffy Richardson RPH - 11/16/2021 8:00 AM EDT [facility] Medication Management ANTICOAGULATION Referring Provider: [...] Raffy Richardson RPH, PharmD documented in this [employer] Phone: [phone]) 455-954804-12-2022 Hospital Discharge instructions* Patient Instructions* Raffy Richardson [...] to your next appointment. documented in this [employer] Phone: [phone]) 987-112901-04-2022 History of Present illness Narrative* Raffy Richardson RPH - 08/10/2021 8:00 AM EST [facility] [facility]TICO[facility]ULATION Referring Provider: Dr. Ayde [...] warfarin. As discussed during his last visit, Gregg hadreceived his COVID booster vaccination on 07/16/2021 [...] in other maintenance medications or in diet. Gregg says he takes his warfarin in the [...] Raffy Richardson RPH, PharmD documented [facility] this [facility] Phone: [phone] Hospital Discharge instructions* Patient Instructions* Raffy Richardson [...] to your next appointment. [facility] Phone: 1(168) 915-753911-01-2021 History of Present illness Narrative* Raffy Richardson RPH - 06/07/2021 7:30 AM EDT [facility] Medication Management ANTICOAGULATION Referring Provider: [...] of warfarin. All medications reviewed for accuracy. Gregg says he took an Aleve last week [...] Raffy Richardson RPH, PharmD documented [facility] this [facility] Phone: [phone]) 911-878711-01-2021 Hospital Discharge instructions* Patient Instructions* Raffy Richardson [...] to your next appointment. [facility] Phone: [phone]) 722-666409-17-2021 History of Present illness Narrative* Raffy Richardson RPH - 04/23/2021 7:30 AM EDT [facility] Medication [facility] ANTICOAGULATION Referring Provider: Dr. [...] 1 Time Spent (min): 30 Raffy Richardson RP, PharmD documented in this [employer] Phone: [phone]) 376-738809-17-2021 Hospital Discharge instructions* Patient Instructions* Raffy Richardson [...] to your next appointment. documented in this [employer] Phone: [phone]) 422-127507-26-2021 History of Present illness Narrative* Lorri Carmen [facility] - 03/01/2021 10:30 AM EDT [facility]TICOAGULATION Referring Provider: Dr. Ayde [...] change in other maintenance medications kita diet. Gregg will see Dr. Nicole after our appointment today. Since Gregg's INR remains therapeutic, we will continue current weekly warfarin regimen and will recheck INR in 6 weeks. Patient acknowledges working in consult agreement with pharmacist as referred by his/her physician. For Pharmacy Admin Tracking Only Intervention Detail: Adherence Monitorin Total # of Interventions Recommended: 0 Total # of Interventions Accepted: 0 Time Spent (min): 30 Lorri Carmen RPH, PharmD [facility]: [phone] Hospital Discharge instructions* Patient Instructions* Lorri Carmen [...] to your next appointment. [facility]: [phone] History of Present illness Narrative* Raffy Richardson RPH - 12/29/2020 8:00 AM EDT [facility]TICOAGULATION Referring Doctor: Dr. Ayde [...] diet. As discussed during his last visit, Gregg had a cholelithiasis procedure on 11/23/[address] Ayde Matthews DO at [facility]. His surgery was initially scheduled for last spring but was cancelled and postponed due to concerns with COVID. Gregg says there were no complications post-surgery, but his diet is little different because he has to watch what (he) eats more closely. He says he did have some loose stools post-surgery, but his bowels are pretty much back to normal again. He had been having epigastric pain, mostly after eating, but says that is just now starting to get a little better. Gregg says he skipped his warfarin and aspirin [...] Raffy Richardson RPH, PharmD documented [facility] this [facility] Phone: [phone] 489-416905-25-2021 Hospital Discharge instructions* Patient Instructions* Raffy Richardson [...] to your next appointment. documented in this [employer] Phone: [phone] 247-165204-19-2021 History of Present illness Narrative* Bethanie Giordano RN - 11/23/2020 10:12 AM EDT Patient transferred to room 60 via stretcher for phase 2. documented in this [employer] Phone: [phone] 139-595901-27-2020 History of Present illness Narrative* Raffy Richardson [...] referred by his/her physician. documented in this [employer] Phone: [phone]) [phone] Hospital Discharge instructions* Patient Instructions* Raffy Richardson [...] to your next appointment. [facility] Phone: [phone] History of Present illness Narrative* Meka Eagle, RN - 08/19/2019 11:16 AM EST Pt reports little tightness in chest after Lexiscan administered. 11:22 Pt denies chest pain or shortness of breath now. documented in this [facility] Phone: [phone] Hospital Discharge instructions* Instructions* Eloina Pat MD - 08/12/2019 Lasix 20 mg take 2 tablets in a.m. and 1 tablet p.m. for one week Repeat Bilirubin tomorrow. Follow-up with Dr. Talbert on * Attachments The following attachments cannot be sent through Care Everywhere. * Gallstones ([place]ian) documented in this [facility] Phone: [email or web address] note* Diagnosis Post-op pain- Primary Other acute postoperative pain Recurrent biliary colic Calculus of gallbladder without mention of cholecystitis or obstruction Sludge in gallbladder Calculus of gallbladder without mention of cholecystitis or obstruction documented in this encounter [facility] [employer] Phone: evaluation note* Diagnosis LV (left ventricular) 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- Primary Acute myocardial infarction, unspecified site, episode of care unspecified half-way (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 Long-term (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 documented in this encounter [employer] [employer] Phone: evaluation note* Diagnosis ICD (implantable cardioverter-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, unspecified vessel or lesion type Hypertension, unspecified type Vitamin D deficiency disease Unspecified vitamin D deficiency documented in this encounter [facility] [employer] Phone: evaluation note* Diagnosis ICD (implantable cardioverter-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, unspecified vessel or lesion type Hypertension, unspecified type Vitamin D deficiency disease Unspecified vitamin D deficiency documented in this encounter [employer] Phone: evaluation note* Diagnosis LV (left ventricular) 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- Primary Acute myocardial infarction, unspecified site, episode of care unspecified half-way (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 Long-term (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 documented in this encounter [employer] Phone: evaluation note* Diagnosis LV (left ventricular) 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- Primary Acute myocardial infarction, unspecified site, episode of care unspecified half-way (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 Long-term (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 documented in this encounter [employer] Phone: [email or web address] note* Diagnosis LV (left ventricular) 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- Primary Acute myocardial infarction, unspecified site, episode of care unspecified manager intermediate (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 Long-term (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 documented in this encounter [employer] Phone: evaluation note* Diagnosis LV (left ventricular) 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- Primary Acute myocardial infarction, unspecified site, episode of care unspecified half-way (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 Long-term (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 documented in this encounter [employer] Phone: [email or web address] note* Diagnosis Central artery occlusion of retina, left documented in this encounter [employer] Phone: evaluation note* Diagnosis Acute on chronic congestive heart failure, unspecified heart failure type (HCC)- Primary 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, unspecified vessel or lesion type Hypertension, unspecified type Other specified diabetes mellitus without complication, with long-term current use of insulin (HCC) Cardiomyopathy, unspecified type (HCC) Shortness of breath Elevated bilirubin Disorders of bilirubin excretion Calculus of gallbladder without cholecystitis without obstruction Calculus of gallbladder without mention of cholecystitis or obstruction documented in this encounter [employer] Phone: [email or web address] note* Diagnosis Elevated bilirubin Disorders of bilirubin excretion Calculus of gallbladder without cholecystitis without obstruction Calculus of gallbladder without mention of cholecystitis or obstruction documented in this encounter [employer] Phone: [email or web address] note* Diagnosis Shortness of breath documented in this encounter [employer] Phone: evaluation note* Diagnosis Cardiomyopathy, unspecified type (HCC) Shortness of breath documented in this encounter [employer] Phone: evaluation note* Diagnosis manager intermediate (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 Long-term (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 LV (left ventricular) 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 Acute myocardial infarction, unspecified site, episode of care unspecified documented in this encounter [employer] Phone: evaluation note* Diagnosis ICD (implantable cardioverter-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, unspecified vessel or lesion type Hypertension, unspecified type Vitamin D deficiency disease Unspecified vitamin D deficiency Shortness of breath documented in this encounter [employer] Phone: evaluation note* Diagnosis LV (left ventricular) 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- Primary Acute myocardial infarction, unspecified site, episode of care unspecified manager intermediate (current) use of 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 Long-term (current) use of 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 documented in this encounter [employer] Phone: [email or web address] note* Diagnosis Elevated serum creatinine- Primary Other nonspecific findings on examination of blood Atherosclerosis of right carotid artery [facility] Diagnosis Symptomatic stenosis of right carotid artery [facility]* Diagnosis Symptomatic stenosis of right carotid artery- Primary Symptomatic stenosis of right carotid artery [facility] Diagnosis LV (left ventricular) 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- Primary Acute myocardial infarction, unspecified site, episode of care unspecified manager intermediate (current) use of 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 Long-term (current) use of 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 documented in this encounter [employer] Phone: [email or web address] note* Diagnosis Symptomatic stenosis of right carotid artery- Primary Carotid stenosis, symptomatic w/o infarct, right Symptomatic stenosis of right carotid artery [facility]* Diagnosis Left arm pain- Primary Pain in limb documented in this encounter [facility] Phone: [email or web address] note* Diagnosis Left arm pain Pain in limb documented in this encounter [facility] Phone: [email or web address] note* Diagnosis LV (left ventricular) 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- Primary Acute myocardial infarction, unspecified site, episode of care unspecified half-way (current) use of 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 Long-term (current) use of 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 documented in this encounter [facility] Phone: evaluation note* Diagnosis LV (left ventricular) 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- Primary Acute myocardial infarction, unspecified site, episode of care unspecified manager intermediate (current) use of 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 Long-term (current) use of 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 documented in this encounter [facility] Phone: [email or web address] note* Diagnosis Carotid stenosis, symptomatic w/o infarct, right- Primary Symptomatic stenosis of right carotid artery documented in this encounter [facility] note* Diagnosis ICD (implantable cardioverter-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, unspecified vessel or lesion type Hypertension, unspecified type Vitamin D deficiency disease Unspecified vitamin D deficiency Cardiomyopathy, unspecified type (HCC) SOB (shortness of breath) Shortness of breath documented in this encounter [facility] Phone: [email or web address] note* Diagnosis LV (left ventricular) 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- Primary Acute myocardial infarction, unspecified site, episode of care unspecified half-way (current) use of 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 Long-term (current) use of 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 documented in this encounter [facility] Phone: evaluation note* Diagnosis ICD (implantable cardioverter-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, unspecified vessel or lesion type Hypertension, unspecified type Vitamin D deficiency disease Unspecified vitamin D deficiency Cardiomyopathy, unspecified type (HCC) SOB (shortness of breath) Shortness of breath Other specified diabetes mellitus without complication, with long-term current use of insulin (HCC) documented in this encounter [facility] Phone: [email or web address] note* Diagnosis Coronary artery disease, unspecified vessel or lesion type, unspecified whether angina present, unspecified whether cocopah or transplanted heart documented in this encounter [facility] Phone: [email or web address] note* Diagnosis LV (left ventricular) 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- Primary Acute myocardial infarction, unspecified site, episode of care unspecified half-way (current) use of 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 Long-term (current) use of 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 documented in this encounter [facility] Phone: evaluation note* Diagnosis LV (left ventricular) 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- Primary Acute myocardial infarction, unspecified site, episode of care unspecified half-way (current) use of 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 Long-term (current) use of anticoagulants documented in this encounter [facility] [employer] Phone: evaluation note* Diagnosis Carotid stenosis, symptomatic w/o infarct, right- Primary Left carotid stenosis documented in this encounter [facility] note* Diagnosis ICD (implantable cardioverter-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, unspecified vessel or lesion type Hypertension, unspecified type Vitamin D deficiency disease Unspecified vitamin D deficiency Cardiomyopathy, unspecified type ([facility]) documented in this encounter [facility] [employer] [place] [facility] note* Diagnosis Heart disease- Primary Heart disease, unspecified documented in this encounter [facility] note* Diagnosis Frequent PVCs- Primary Other premature beats documented in this encounter [facility] note* Diagnosis Chronic systolic HF (heart failure) (HCC)- Primary Chronic systolic heart failure Dysuria Frequent PVCs Other premature beats Chronic combined systolic and diastolic congestive heart failure (HCC) Chronic combined systolic and diastolic heart failure Cardiomyopathy, nonischemic (HCC) Other primary cardiomyopathies documented in this encounter [facility] note* Diagnosis Paroxysmal atrial fibrillation (HCC)- Primary Atrial fibrillation Pre-op exam Preoperative examination, unspecified documented in this encounter [facility] note* Diagnosis Chronic systolic HF (heart failure) (HCC)- Primary Chronic systolic heart failure Paroxysmal atrial fibrillation (HCC) Atrial fibrillation Cardiomyopathy, nonischemic (HCC) Other primary cardiomyopathies Frequent PVCs Other premature beats documented in this encounter [facility] note* Diagnosis Chronic systolic HF (heart failure) (HCC)- Primary Chronic systolic heart failure Coronary artery disease involving cocopah coronary artery of cocopah heart without angina pectoris Atrial fibrillation, chronic (HCC) Atrial fibrillation documented in this encounter [facility] note* Diagnosis Critical limb ischemia of right lower extremity ([facility])- Primary documented in this encounter [facility] note* Diagnosis PAD (peripheral artery disease) ([facility])- Primary Unspecified peripheral vascular disease documented in this encounter [facility] Healthaluation note* Diagnosis Pulmonary hypertension (CMS/HCC)- Primary Other chronic pulmonary heart diseases [facility] Chronic systolic congestive heart failure (HCC)- Primary Chronic systolic heart failure IVCD (intraventricular conduction defect) Other heart block On anticoagulant therapy Long-term (current) use of anticoagulants Atrial fibrillation, persistent (HCC) Atrial fibrillation documented in this encounter [facility] note* Diagnosis Chronic systolic HF (heart failure) (HCC) Chronic systolic heart failure documented in this encounter [facility] note* Diagnosis PAD (peripheral artery disease) (HCC)- Primary Unspecified peripheral vascular disease documented in this encounter [facility] Discharge instructions* Instructions* Karl Taveras RN - [...] urinate call your doctor [facility]: reason for referral (narrative)* Diagnostic Procedure Only (Routine) - Closed Specialty Diagnoses / Procedures Referred By Trang giraldo Referred To Contact MOLECULAR & FUNCTIONAL IMAGING Diagnoses Heart disease Procedures NM PET/CT CARDIAC VIABILITY MYOCRD IMG PET PRFUJ W/METAB 2RTRACER CNCRNT CT Mira Talbert MD [address] [place] [address] Molecular & Functional Imaging [address] [place] [address] Referral ID Status Reason Start Date Expiration Date V isits Requested Visits Authorized [id number] Closed Auto-Generate d Referral 03/21/2023 04/19/2024 3 3 [facility] for visit Narrative* Auth/Cert Specialty Diagnoses / Procedures Referred By Trang t Referred To Contact Diagnoses Symptomatic stenosis of right carotid artery Procedures TRANSCAROTID ARTERY REVASCULARIZATION Shahab Buckley MD [facility] [place] [address] Referral ID Status Reason Start Date Expiration Date Visits Re quested Visits Authorized [id number] 12/14/[address] 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, unspecified vessel or lesion type Hypertension, unspecified type Vitamin D deficiency disease Unspecified vitamin D deficiency Shortness of breath Diagnosis Cardiomyopathy, unspecified type (HCC) SOB (shortness of breath) Shortness of breath Diagnosis ICD (implantable cardioverter-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, unspecified vessel or lesion type Hypertension, unspecified type Vitamin D deficiency disease Unspecified vitamin D deficiency Other specified diabetes mellitus without complication, with long-term current use of insulin (HCC) Diagnosis ICD (implantable cardioverter-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, unspecified vessel or lesion type Hypertension, unspecified type Vitamin D deficiency disease Unspecified vitamin D deficiency Other specified diabetes mellitus without complication, with long-term current use of insulin (HCC) Diagnosis half-way (current) use of anticoagulants Long-term (current) use of anticoagulants LV (left ventricular) 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 Acute myocardial infarction, unspecified site, episode of care unspecified Diagnosis ICD (implantable cardioverter-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, unspecified vessel or lesion type Hypertension, unspecified type Vitamin D deficiency disease Unspecified vitamin D deficiency Shortness of breath Diagnosis manager intermediate (current) use of anticoagulants Long-term (current) use of anticoagulants LV (left ventricular) 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 Acute myocardial infarction, unspecified site, episode of care unspecified Diagnosis Epigastric pain Abdominal pain, epigastric Summary Purpose Family History Unknown Family Member Name Dates Details Family [...] m ellitus: Mother(V18.0, Z83.3) Status:Active Advance Directives Documents on File Type Date Recorded Patient Selling Manager Expl anation Advance Directives and Living Will Power of Remote Sensing Technician Documents on File Type Date Recorded Patient Selling Manager Expl anation Advance Directives and Living Will Power of Remote Sensing Technician Documents on File Type Date Recorded Patient Selling Manager Expl anation ACP-Advance Directive ACP-Power of Remote Sensing Technician Documents on File Type Date Recorded Patient Selling Manager Expl anation ACP-Advance Directive ACP-Power of Remote Sensing Technician Documents on File Type Date Recorded Patient Selling Manager Expl anation Advance Directives and Livin g Will 11/26/2021 3:28 PM Documents on File Type Date Recorded Patient Selling Manager Expl anation Advance Directives and Livin g [...] Date Activated Date Inactivated Comments Full Code 09/13/2023 4:31 PM 09/15/2023 2:59 PM Code Status History Code Status Date Activated Date Inactivated Comments Full Code 12/28/2021 3:21 PM 12/29/2021 1:40 PM Documents on File Type Date Recorded Patient Selling Manager Expl anation Power of Remote Sensing Technician 03/06/2023 9:14 AM Power Of Remote Sensing Technician Latest Code Status on File Code Status Date Activated Date Inactivated Comments Full Code 03/25/2023 7:26 AM 04/13/2023 5:35 PM Question Answer Comments Full Code Order Discussed With: Patient Latest Code Status on File Code Status Date Activated Date Inactivated Comments Full Code 10/03/2023 1:25 PM 10/04/2023 12:59 PM Code Status History Code Status Date Activated Date Inactivated Comments Full Code 10/03/2023 8:05 AM 10/03/2023 1:05 PM Full Code 09/13/2023 4:31 PM 09/15/2023 2:59 PM Full Code 12/28/2021 3:21 PM 12/29/2021 1:40 PM Discharge Instructions * Patient Instructions* Lorri Carmen RPH - 10/17/2019 7:30 AM EDT Continue current [...] in this encounter* Patient Instructions* Lorri Carmen RPH - 01/09/2020 7:30 AM EDT Continue current [...] in this encounter* Patient Instructions* Lorri Carmen [facility] - 02/20/2020 7:30 AM EDT Continue current [...] in this encounter* Patient Instructions* Lorri Carmen [facility] - 04/02/2020 7:30 AM EDT Continue current [...] in this encounter* Patient Instructions* Lorri Carmen [facility] - 05/14/2020 7:30 AM EDT Continue current [...] in this encounter* Patient Instructions* Raffy Richardson RP - 08/14/2020 9:45 AM EST Continue current [...] in this encounter* Patient Instructions* Raffy Richardson, [facility] - 06/03/2019 12:18 PM EDT Continue current [...] in this encounter* Patient Instructions* Lorri Carmen [facility] - 04/11/2019 7:35 AM EDT Continue current [...] this encounter* Instructions* Mary Fernando APRN - SPANISHER - 11/04/2020 Images from the original note [...] drive you home after your procedure. Your driver sales must be 18 years of age or [...] questions, call the Pre-Admission Testing Unit at [phone]. Day of Surgery/Procedure As a patient at [facility] you can expect quality medical and nursing care that is centered on your individual needs. Our goal is to make your surgical experience as comfortableas possible . Directions to the Surgery Center [facility] is located at [address] [place] [address]. Please pull into the Emergency parking lot and stop at the [employer] mejias. We offer free meat carver service for all our surgery patients, if you choose not to have meat carver parking we have additional parking across the street.You will enter the facility following the [facility] sign. Please stop at the social service liaison desk where you will be checked in by the staff. If you have any questions please call [phone]. Transportation after your procedure. You will need a friend or family member to drive you home after your procedure. Your driver sales must be18 years of age or older [...] You may shave your face or neck. [place] your teeth but do not swallow water. [...] or the day of surgery, please call [phone], or [phone] documented in this encounter* Patient Instructions* Raffy Richardson [facility] - 11/17/2020 8:00 AM EDT Continue to [...] encounter History of Present Illness * Lorri Carmen, [facility] - 10/17/2019 7:30 AM EDT Fingerstick INR drawn per clinic protocol. Patient states no visible blood in urine and no black tarry stool. Denies any missed doses of warfarin. No change in diet. Gregg is now taking entresto 49/51 twice daily. Gregg states his breathing is much better and he has increased stamina. Gregg continues on lasix 40 mg daily and will see Dr. Nicole again on 11/19/2019. Gregg's weight is up 10 pounds in the last 6 weeks. Gregg is scheduled for laparoscopic robotic cholecystectomy with Dr. Wagner Jose on . Gregg states he was instructed to stop taking warfarin and aspirin as of 10/18/2019, 6 days prior to the procedure. Since Gregg's INR remains therapeutic, we will continue current [...] Time Spent (min): 15 Lorri Carmen PharmD [facility] documented in this encounter* Lorri Carmen [facility] - 01/09/2020 7:30 AM EDT Fingerstick INR drawn per clinic protocol. Patient states no visible blood in urine and no black tarry stool. Denies any missed doses of warfarin. No change in other maintenance medications or in diet. Gregg states his gallbladder removal surgery was cancelled because of COVID. Since Gregg's INR remains therapeutic, we will continue current [...] Time Spent (min): 15 Lorri Carmen PharmD [facility] documented in this encounter* Lorri Carmen [facility] - 02/20/2020 7:30 AM EDT Fingerstick INR drawn per clinic protocol. Patient states no visible blood in urine and no black tarry stool. Denies any missed doses of warfarin. No change in other maintenance medications or in diet. Gregg is scheduled to see Dr. Nicole on 03/02/2020. Since Gregg's INR remains therapeutic, we will continue current [...] Time Spent (min): 30 Lorri Carmen PharmD [facility] documented in this encounter* Lorri Carmen RP - 04/02/2020 7:30 AM EDT Fingerstick INR drawn per clinic protocol. Patient states no visible blood in urine and no black tarry stool. Denies any missed doses of warfarin. No change in other maintenance medications or in diet. Gregg saw Dr. Nicole on 03/02. Since Gregg's INR remains therapeutic, we will continue current [...] Time Spent (min): 30 Lorri Carmen PharmD [facility] documented in this encounter* Lorri Carmen [facility] - 05/14/2020 7:30 AM EDT Fingerstick INR drawn per clinic protocol. Patient states no visible blood in urine and no black tarry stool. Denies any missed doses of warfarin. No change in other maintenance medications or in diet. Since Gregg's INR remains therapeutic, we will continue current [...] Time Spent (min): 30 Lorri Carmen PharmD [facility] documented in this encounter* Raffy Richardson, [facility] - 08/14/2020 9:45 AM EST Venipuncture INR drawn per [facility] lab protocol. All communication is with the [...] PharmD documented in this encounter* Raffy Richardson [facility] - 06/03/2019 12:18 PM EDT Fingerstick INR drawn per clinic protocol. Patient states no visible blood in urine and no black tarry stool. Denies any missed doses of warfarin. No change in other maintenance medications or in diet. Gregg will have a device check in Dr. Nicole's office after this appointment. Since his INR remains therapeutic today, we will continue current weekly warfarin regimen and recheck INR in 6 weeks. Patient acknowledges working in consult agreement with pharmacist as referred by his/her physician documented in this encounter* Lorri Carmen [facility] - 04/11/2019 7:35 AM EDT Fingerstick INR drawn per clinic protocol. Patient states no visible blood in urine and no black tarry stool. Denies any missed doses of warfarin. No change in other maintenance medications or in diet. Gregg saw Dr. Nicole on 03/04/19. Since Gregg's INR remains therapeutic, we will continue currentweekly warfarin regimen and recheck INR in 6 week(s). Patient acknowledges working in consult agreement with pharmacist as referred by his/her physician. documented in this encounter* Alaina West RN - 11/09/2020 1:30 PM EDT Per [employer], UTOPY Rep, OK to use Magnet DOS PRN. He doesn't need to be here. 1-800- Cardiac documented in this encounter* Raffy Richardson, [facility] - 11/17/2020 8:00 AM EDT [facility] Med[facility] Management ANTICOAGULATION Referring Doctor: Dr. [...] stool. Denies any missed doses of warfarin. Gregg had an initial consultation with Dr. Ayde Matthews DO at [facility] on 10/15/2020 and has a cholelithiasis scheduled for 11/23/2020. He says this surgery was initially scheduled for last spring but was cancelled and postponed due to concerns with COVID. He does have epigastric pain, mostly after eating and was notedto have gallstones per ultrasound. Gregg will need to stop his warfarin and aspirin for 5 days prior to this procedure and was cleared by editing intern, Dr. Nicole, without the need for bridge therapy with LMWH. No change in other maintenance medications or in diet. 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, unspecified vessel or lesion type Hypertension, unspecified type Vitamin D deficiency disease Shortness of breath Procedures EKG 12 Lead Rafa Nicole MD [address] [place] [address] Status Reason Specialty Diagnoses / Procedures Referred By Contact Referred To Contact Closed Cardiology / Echocardiography Diagnoses Cardiomyopathy, unspecified type (HCC) SOB (shortness of breath) Procedures ECHO Complete 2D W Doppler W Color Rafa Nicole MD [address] [place] [address] [facility] [address] [place] [id number] Status Reason Specialty Diagnoses / Procedures Referre d By Contact Referred To Contact Open Cardiology Diagnoses ICD (implantable 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, unspecified vessel or lesion type Hypertension, unspecified type Vitamin D deficiency disease Other specified diabetes mellitus without complication, with long-term current use of insulin (HCC) Procedures EKG 12 Lead Rafa Nicole MD [address] [place] [id number] Status Reason Specialty Diagnoses / Procedures Referre d By Contact Referred To Contact Closed Radiology Diagnoses Epigastric pain Procedures US GALLBLADDER RUQ Ayde Matthews, DO [address] [facility] [address] [place] [address] [facility] [address] [place] [address] Status Reason Specialty Diagnoses / Procedures Referre d By Contact Referred To Contact Open Cardiology Diagnoses ICD (implantable 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, unspecified vessel or lesion type Hypertension, unspecified type Vitamin D deficiency disease Procedures EKG 12 Lead Rafa Nicole MD [address] [place] [address] Specialty Diagnoses / Procedures Referred By Contac t Referred To Contact Vascular Lab Diagnoses Central artery occlusion of retina, left Procedures VL DUP CAROTID BILATERAL Jeff Cerda MD [address] [place] [address] Referral ID Status Reason Start Date Expiration Date Visits Re quested Visits Authorized [id number] Open 10/26/2021 10/26/2022 1 1 Status Reason Specialty Diagnoses / Procedures Referred By Contact Referred To Contact Pending Review Cardiology Diagnoses 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 REST STRESS MULT CHG MYOCARDIAL SPECT MULTIPLE STUDIES Rafa Nicole MD [address] [place] [address] [facility] [address] [place] [address] Status Reason Specialty Diagnoses / Procedures Referre d By Contact Referred To Contact Closed Cardiology Diagnoses Cardiomyopathy, unspecified type (HCC) Shortness of breath Procedures ECHO Complete 2D W Doppler W Color HC ECHO NO CONTRAST WITH DOP/COLR DC ECHO HEART XTHORACIC,COMPLETE W DOPPLER Rafa Nicole MD [address] [place] [address] [facility] [address] [facility] [place] [address] Specialty Diagnoses / Procedures Referred By Contac t Referred To Contact Cardiology Diagnoses Carotid stenosis, symptomatic w/o infarct, right Procedures Ultrasound doppler carotid Mary Jane Chavarria PA-C [address] [place] [address] Referral ID Status Reason Start Date Expiration Date V isits Requested Visits Authorized [id number] Pending Review 01/29/2022 01/29/2023 1 1 Specialty Diagnoses / Procedures Referred By Contac t Referred To Contact Radiology Diagnoses Left arm pain Procedures VL DUP UPPER EXTREMITY VENOUS LEFT Lonnie Hart MD [address] [place] [address] [place] [address] Referral ID Status Reason Start Date Expiration Date Visits Re quested Visits Authorized [id number] Open 01/07/2022 01/07/2023 1 1 Referral ID Status Reason Start Date Expiration Date Visits Re quested Visits Authorized [id number] Closed 01/07/2022 01/07/2023 1 1 Specialty Diagnoses / Procedures Referred By Contac t Referred To Contact Cardiology Diagnoses Carotid stenosis, symptomatic w/o infarct, right Procedures Carotid Duplex Shahab Buckley MD [address] [place] [address] Referral ID Status Reason Start Date Expiration Date V isits Requested Visits Authorized [id number] Authorized 02/11/2022 02/11/2023 1 1 Specialty Diagnoses / Procedures Referred By Contac t Referred To Contact Cardiology Diagnoses ICD (implantable cardioverter-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, unspecified vessel or lesion type Hypertension, unspecified type Vitamin D deficiency disease Cardiomyopathy, unspecified type (HCC) SOB (shortness of breath) Procedures EKG 12 Lead Rafa Nicole MD [address] [place] [address] Referral ID Status Reason Start Date Expiration Date Visits Re quested Visits Authorized [id number] Open 01/30/2022 01/30/2023 1 1 Referral ID Status Reason Start Date Expiration Date V isits Requested Visits Authorized [id number] Authorized 08/26/2022 08/26/2023 1 1 Specialty Diagnoses / Procedures Referred By Contac t Referred To Contact Flor Vitale MD [address] [place] [address] Referral ID Status Reason Start Date Expiration Date V isits Requested Visits Authorized [id number] Pending Review 1 1 Specialty Diagnoses / Procedures Referred By Contac t Referred To Contact Procedures CARDIOVASCULAR MEDICINE OP FOLLOW UP APPT ORDER Fany Ta, COORDINATOR [place] [id number] Referral ID Status Reason Start Date Expiration Date Visits Requested Visits Authorized [id number] Ref Not Required PCP Requested Referral 3 06/15/2024 1 1 Specialty Diagnoses / Procedures Referred By Contac t Referred To Contact Procedures CARDIOVASCULAR MEDICINE OP FOLLOW UP APPT ORDER Yannick Zuñiga, PALvC [address] [place] [address] Referral ID Status Reason Start Date Expiration Date Visits Requested Visits Authorized [id number] Ref Not Required PCP Requested Referral 3 06/26/2024 1 1 Specialty Diagnoses / Procedures Referred By Contac t Referred To Contact Procedures CARDIOVASCULAR MEDICINE OP FOLLOW UP APPT ORDER Carolina Stover MD [address] [place] [address] Referral ID Status Reason Start Date Expiration Date Visits Requested Visits Authorized [id number] Ref Not Required PCP Requested Referral 01/11/2024 07/11/2024 1 1 Specialty Diagnoses / Procedures Referred By Contac t Referred To Contact Procedures CARDIOVASCULAR MEDICINE OP FOLLOW UP APPT ORDER Luc Zacarias MD [address] [place] [address] Referral ID Status Reason Start Date Expiration Date Visits Requested Visits Authorized [id number] Ref Not Required PCP Requested Referral 09/20/2023 09/19/2024 1 1 Specialty Diagnoses / Procedures Referred By Contac t Referred To Contact Cardiology Diagnoses PAD (peripheral artery disease) (HCC) Procedures Ultrasound ankle / brachial indices extremity complete Shahab Buckley MD [address] [place] [address] Referral ID Status Reason Start Date Expiration Date V isits Requested Visits Authorized [id number] Authorized 11/09/2023 11/08/2024 1 1 Additional Source Comments (unrecognized sect [...] section and content) DATE CREATED AUTHOR 01/29/2018 [facility] DATE CREATED AUTHOR AUTHOR'S ORGANIZ ATION 01/29/2018 [facility] DATE CREATED AUTHOR AUTHOR'S ORGANIZ ATION 01/30/2018 [facility] DATE CREATED AUTHOR AUTHOR'S ORGANIZ ATION 02/08/2018 [facility] DATE CREATED AUTHOR AUTHOR'S ORGANIZ ATION 11/25/2020 [facility] DATE CREATED AUTHOR AUTHOR'S ORGANIZ ATION 01/30/2021 [facility] DATE CREATED AUTHOR AUTHOR'S ORGANIZ ATION 01/14/2023 [facility] DATE CREATED AUTHOR AUTHOR'S ORGANIZ ATION 03/16/2023 [facility] DATE CREATED AUTHOR AUTHOR'S ORGANIZ ATION 03/21/2023 [facility] DATE CREATED AUTHOR AUTHOR'S ORGANIZ ATION 03/21/2023 [facility] DATE CREATED AUTHOR AUTHOR'S ORGANIZ ATION 03/27/2023 [facility] DATE CREATED AUTHOR AUTHOR'S ORGANIZ ATION 09/08/2023 [facility] DATE CREATED AUTHOR AUTHOR'S ORGANIZ ATION 09/24/2023 [facility] DATE CREATED AUTHOR AUTHOR'S ORGANIZ ATION 10/04/2023 [facility] Ordered Prescriptions (unrec ognized section and content) [...] skip Fridays) or as directed. Managed by [facility]tico[facility] 90 tablet 3 01/20/2022 Prescription Sig Dispensed Refills Start Date End Da te warfarin (COUMADIN) 2.5 MG tablet Take 1/2 tablet daily or as directed. Managed by [facility]tico[facility] 90 tablet 1 01/27/2022 Prescription Sig Dispensed Refills Start Date End Da te warfarin (COUMADIN) 2.5 MG tablet Take 1 tablet daily or as directed. Managed by [facility]. 90 tablet 1 06/01/2022 Prescription Sig [...] Doppler W Color Rafa Nicole MD [address] [place] [address] [facility] [address] [place] [address] Status Reason Specialty Diagnoses / Procedures Referre d By Contact Referred To Contact Closed Radiology Diagnoses Epigastric pain Procedures US GALLBLADDER RUQ Ayde Matthews DO [address] [address] [facility] [address] [place] [address] Status Reason Specialty Diagnoses / Procedures Referre d By Contact Referred To Contact Diagnoses Gallstones GALLSTONES Procedures DC LAP,CHOLECYSTECTOMY XI ROBOTIC LAPAROSCOPIC CHOLECYSTECTOMY, POSSIBLE OPEN Ayde Matthews DO [address] [facility] [address] [place] [address] [facility] Specialty Diagnoses / Procedures Referred By Trang giraldo Referred To Contact Cardiology Diagnoses 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 [address] Status Reason Specialty Diagnoses / Procedures Referre d By Contact Referred To Contact Closed Cardiology Diagnoses Cardiomyopathy, unspecified type (HCC) Shortness of breath Procedures ECHO Complete 2D W Doppler W Color HC ECHO NO CONTRAST WITH DOP/COLR DC ECHO HEART XTHORACIC,COMPLETE W DOPPLER Rafa Nicole MD [address] [place] [address] [facility] [address] [facility] [place] [address] Reason Comments Follow-up Reason Comments Arm Pain left lower arm pain and bruising. Patient states its 10 days old from surgery on his carotid. Believes its from IV starts and may infiltration. Specialty Diagnoses / Procedures Referred By Trang giraldo Referred To Contact Radiology Diagnoses Left arm pain Procedures VL DUP UPPER EXTREMITY VENOUS LEFT Lonnie Hart MD [address] [facility] [place] [address] Referral ID Status Reason Start Date Expiration Date Visits Re quested Visits Authorized [id number] Closed 01/07/2022 01/07/2023 1 1 Reason Onset [...] Patient Education EPS-DCC Reason Comments Follow Up Specialty Diagnoses / Procedures Referred By Contac t Referred To Contact Diagnoses Gangrene of right foot (HCC) PAD (peripheral artery disease) (HCC) Referral ID Status Reason Start Date Expiration Date Visits Re quested Visits Authorized [id number] 1 1 Reason Comments IV Medication Administration Definity Specialty Diagnoses / Procedures Referred By Contac t Referred To Contact [facility] Diagnoses Chronic systolic HF (heart failure) ([facility]) Procedures ECHO ECHO TTHRC R-T 2D W/WOM-MODE COMPL SPEC&COLR D Flor Vitale MD [address] [place] [address] [facility] [place] [id number] Referral ID Status Reason Start Date Expiration Date V isits Requested Visits Authorized [id number] Closed Auto-Generate d Referral 07/05/2023 07/04/2024 1 1 Care Teams (unrecognized sec tion and content) 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 Start Date End Date Jeff Cerda MD PCP - General 09/01/17 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 Start Date End Date Jeff Cerda MD PCP - General 09/01/17 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 Start Date End Date Jeff Cerda MD PCP - General 09/01/17 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 Start Date End Date Jeff Cerda MD (Fax) PCP - General Family Medicine 09/07/17 Shahab Buckley MD [address] [place] [address] Vascular Surgery 11/26/21 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 Start Date End Date Jeff Cerda MD [address] [place] [address] (Fax) PCP - General Family Medicine 09/07/17 Shahab Buckley MD [address] [place] [address] Vascular Surgery 11/26/21 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 Start Date End Date Jeff Cerda MD [address] [place] [address] (Fax) PCP - General Family Medicine 09/07/17 Shahab Buckley MD [address] [place] [address] Vascular Surgery 11/26/21 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 Start Date End Date Jeff Cerda MD PCP - General 09/01/17 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 Start Date End Date Jeff Cerda MD [address] [place] [address] (Fax) PCP - General Family Medicine 09/07/17 Shahab Buckley MD [address] [place] [address] Vascular Surgery 11/26/21 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 Start Date End Date Jeff Cerda MD PCP - General 09/01/17 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 Start Date End Date Jeff Cerda MD PCP - General 09/01/17 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 Start Date End Date Jeff Cerda MD PCP - General 09/01/17 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 Start Date End Date Jeff Cerda MD PCP - General 09/01/17 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 Start Date End Date Jeff Cerda MD [address] [place] [id number] PCP - General Family Medicine 09/07/17 Shahab Buckley MD [address] [place] [phone] Vascular Surgery 11/26/21 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 Start Date End Date Jeff Cerda MD PCP - General 09/01/17 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 Start Date End Date Jeff Cerda MD [address] [place] [phone] (Fax) PCP - General [facility] 09/07/17 Shahab Buckley MD [address] [place] [address] Vascular Surgery 11/26/21 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 Start Date End Date Jeff Cerda MD PCP - General 09/01/17 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 Start Date End Date Jeff Cerda MD PCP - General 09/01/17 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 Start Date End Date Jeff Cerda MD PCP - General 09/01/17 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 Start Date End Date Jeff Cerda MD PCP - General 09/01/17 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 Start Date End Date Jeff Cerda MD PCP - General 09/01/17 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 Start Date End Date Jeff Cerda MD PCP - General 09/01/17 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 Start Date End Date Jeff Cerda MD [address] [place], [place] [phone] (Fax) PCP - [facility] Family Medicine 09/07/17 Shahab Buckley MD [address] [place] [address] Vascular Surgery 11/26/21 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 Start Date End Date Jeff Cerda MD [address] [place] [address] (Fax) [facility] 09/07/17 Shahab Buckley MD [address] [place] [address] Vascular Surgery 11/26/21 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 Start Date End Date Jeff Cerda MD PCP - General 09/01/17 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 Start Date End Date Brenda Terrell II, MD [address] [facility] [address] [place] [address] PCP - General Internal Medicine 10/09/15 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 Start Date End Date Brenda Terrell II, MD [address] [place] [address] PCP - General Internal Medicine 10/09/15 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 Start Date End Date Brenda Terrell II, MD [address] [place] [address] PCP - General Internal Medicine 10/09/15 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 Start Date End Date Brenda Terrell II, MD [address] [place] [address] PCP - General Internal Medicine 10/09/15 [facility] [address] [place] [address] Transitional Care Pharmacist Pharmacy 04/14/23 05/12/23 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 Start Date End Date Brenda Terrell II, MD [address] [place] [address] PCP - General Internal Medicine 10/09/15 [facility] [address] [place] [address] Transitional Care Pharmacist Pharmacy 04/14/23 05/12/23 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 Start Date End Date Brenda Terrell II, MD [address] [place] [address] PCP - General Internal Medicine 10/09/15 [facility] [address] [place] [address] Transitional Care Pharmacist Pharmacy 04/14/23 05/12/23 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 Start Date End Date Brenda Terrell II, MD [address] [address] PCP - General Internal Medicine 10/09/15 [facility] [address] [place] [address] Transitional Care Pharmacist Pharmacy 04/14/23 05/12/23 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 Start Date End Date Jeff Cerda MD [address] [place] [address] (Fax) PCP - General Family Medicine 05/12/23 [facility] [address] [place] [address] Transitional Care Pharmacist Pharmacy 04/14/23 05/12/23 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 Start Date End Date Jeff Cerda MD [address] [place] [address] (Fax) PCP - General Family Medicine 05/12/23 [facility] [address] [place] [address] Transitional Care Pharmacist Pharmacy 04/14/23 05/12/23 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 Start Date End Date Jeff Cerda MD [address] [place] [address] (Fax) PCP - General Family Medicine 05/12/23 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 Start Date End Date Jeff Cerda MD [address] [place] [address] (Fax) PCP - General Family Medicine 05/12/23 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 Start Date End Date Jeff Cerda MD [address] [place] [address] (Fax) PCP - General Family Medicine 05/12/23 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 Start Date End Date Jeff Cerda MD [address] [place], [facility] (Fax) PCP - General Family Medicine 05/12/23 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 Start Date End Date Jeff Cerda MD [address] [place], [facility] (Fax) PCP - General Family Medicine 05/12/23 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 Start Date End Date Jeff Cerda MD [address] [place] [address] (Fax) PCP - General Family Medicine 05/12/23 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 Start Date End Date Jeff Cerda MD [address] [place] [address] (Fax) PCP - General Family Medicine 05/12/23 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 Start Date End Date Jeff Cerda MD [address] [place] [address] (Fax) PCP - General Family Medicine 05/12/23 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 Start Date End Date Jeff Cerda MD [address] [place] [address] (Fax) PCP - General Family Medicine 05/12/23 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 Start Date End Date Jeff Cerda MD [address] [place] [address] (Fax) PCP - General Family Medicine 05/12/23 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 Start Date End Date Jeff Cerda MD [address] [place] [address] (Fax) PCP - General Family Medicine 09/07/17 Shahab Buckley MD [address] [place] [address] Vascular Surgery 11/26/21 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 Start Date End Date Jeff Cerda MD [address] [place] [address] (Fax) PCP - General Family Medicine 09/07/17 Shahab Buckley MD [address] [facility] [place] [address] Vascular Surgery 11/26/21 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 Start Date End Date Jeff Cerda MD [address] [place] [address] (Fax) PCP - General Family Medicine 09/07/17 Shahab Buckley MD [address] [facility] [place] [address] Vascular Surgery 11/26/21 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 Start Date End Date Jeff Cerda MD [address] [place] [address] (Fax) PCP - General Family Medicine 01/03/23 Jeff Cerda MD [address] [place] [address] (Fax) PCP - [facility] 01/05/23 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 Start Date End Date Jeff Cerda MD [address] [place] [address] (Fax) PCP - General Family Medicine 05/12/23 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 1845 (Given - Provider: Belia Ponce RN) 0832 (Given - Provider: Yanelis Blackmon RN) sacubitriL-valsartan [...] dose undiluted IV Push over 30 seconds.
Scheduled Medication Order 09/13/2023 09/14/2023 09/15/2023 apixaban (ELIQUIS) tablet 5 mg 5 mg, Oral, 2 times daily, First dose on Mon09/14/23 at 1600, Indication: Atrial Fibrillation 1656 (Given - Provider: Luciana Johnson RN) 0843 (Given - Provider: Princess Cruz LPN) atorvastatin (LIPITOR) tablet 80 mg 80 mg, Oral, Nightly, First dose on Mon09/13/23 at 2100 2115 (Given - Provider: Karishma Stein, RN) 2019 (Given - Provider: Kenisha Ricci RN) clopidogreL (PLAVIX) tablet 75 mg 75 mg, Oral, Daily, First dose on Mon09/13/23 at 1800 1800 (Not Given - Provider: Martha Krishnamurthy RN - Reason: Other - Comment: already had today) 09 (Given - Provider: Luciana Johnson RN) 0843 (Given - Provider: Princess Cruz LPN) DULoxetine (CYMBALTA) DR capsule 20 mg 20 mg, Oral, Daily, First dose on Mon09/13/23 at 1800, DO NOT CRUSH OR CHEW. 1800 (Not Given - Provider: Martha Krishnamurthy RN - Reason: Other - Comment: already had today) 0906 (Given - Provider: Luciana Johnson RN) 0843 (Given - Provider: Princess Cruz LPN) insulin lispro (AdmeLOG,HumaLOG) injection 0-15 Units(Linked Group 1) 0-15 Units, Subcutaneous, At bedtime, First dose on Mon09/13/23 at 2100, IF initial POC glucose is greater than 250, administer insulin as directed and re-check POC glucose no sooner than 2 hours after administration. THEN notify provider if POC glucose is still greater than 250., For nightly BG greater than 250, give: Half ( ) Corrective Scale, Nightly Prandial Snack Dosing Method: NO Snack Coverage - Corrective Scale ONLY, Nightly Insulin Dose Corrective Scale: FOLLOW DAYTIME Prandial Corrective Scale, Corrective Insulin Regimen (select desired scale to cover BG result): USUAL Sensitivity Scale, (REMINDER: Nightly Insulin Dose Corrective Scale will be automatically calculated to be of the daytime scale), Dose Reduction Threshold (at meals) for POC Blood Glucose less than or equal to: 80, For Downtime Calculator, use: Insulin SC NIGHTtime 2100 (Not Given - Provider: Karishma Stein RN - Reason: Contraindicated) 2018 (Not Given - Provider: Kenisha Ricci RN - Reason: Order parameters not met) insulin lispro (AdmeLOG,HumaLOG) injection 0-30 Units 0-30 Units, Subcutaneous, 3 times daily before meals, First dose on Mon09/13/23 at 1830, Dose should be given EITHER: No sooner than 10-15 minutes BEFORE a meal ( Specific Prandial Doses or NO Prandial Dose - Corrective Scale ONLY ) - OR - Immediately AFTER meal completed ( Carb Counting Ratio ), Prandial Insulin Dosing Method: NO Prandial Dose - Corrective Scale ONLY, Corrective Insulin Regimen (select desired scale to cover BG result): USUAL Sensitivity Scale, Dose Reduction Threshold (at meals) for POC Blood Glucose less than or equal to: 80, For Downtime Calculator, use: Insulin SC MEALtime PREprandial 1830 (Not Given - Provider: Martha Krishnamurthy RN - Reason: Contraindicated) 0730 (Not Given - Provider: Luciana Johnson RN - Reason: Contraindicated)1130 (Given - Provider: Luciana Johnson RN)1655 (Given - Provider: Luciana Johnson RN) 0843 (Given - Provider: Princess Cruz LPN)1130 (Due) metoprolol succinate (TOPROL-XL) 24 hr tablet 25 mg 25 mg, Oral, Daily, First dose on Mon09/13/23 at 1800, DO NOT CRUSH OR CHEW. 1800 (Not Given - Provider: Martha Krishnamurthy RN - Reason: Other - Comment: pt already had today) 0906 (Given - Provider: Luciana Johnson RN) 0843 (Given - Provider: Princess Cruz LPN) sacubitriL-valsartan (ENTRESTO) 49-51 mg per tablet 1 tablet 1 tablet, Oral, 2 times daily, First dose on Mon09/13/23 at 2300 0023 (Given - Provider: Karishma Stein RN)1350 (Given - Provider: Luciana Johnson RN)2225 (Given - Provider: Kenisha Ricci RN) 1100 (Due) sodium chloride (PF) (NS) flush 5 mL(Linked Group 2) 5 mL, Intravenous, Every 8 hours scheduled, First dose on Mon09/13/23 at 1730, Saline lock 1730 (Not Given - Provider: Martha Krishnamurthy RN - Reason: Other - Comment: No IV access)2115 (Given - Provider: Karishma Stein RN) 0601 (Given - Provider: Karishma Stein RN)1400 (Given - Provider: Luciana Johnson RN)2200 (Given - Provider: Kenisha Ricci RN) 0600 (Not Given - Provider: Karishma Stein RN - Reason: Patient/family refused) torsemide (DEMADEX) tablet 80 mg 80 mg, Oral, 2 times daily, First dose on Mon09/13/23 at 2100 2114 (Given - Provider: Karishma Stein RN) 0906 (Given - Provider: Luciana Johnson RN)2019 (Given - Provider: Kenisha Ricci RN) 0843 (Given - Provider: Princess Cruz LPN) Continuous Medication Order 09/13/2023 09/14/2023 09/15/2023 heparin (porcine) 25,000 unit/250 mL(100 unit/mL) in D5W infusion (CANCELED) 0-70 Units/kg/hr 105.2 kg (0-73.64 mL/hr, rounded to 0-73.6 mL/hr), Intravenous, Continuous, Starting on Mon09/13/23 at 1815, Choose one of the following protocols: Cardiac / Arterial, Bolus options: Protocol WITHOUT initial bolus only, For Downtime Calculator, use: Heparin Infusion Standard 2137 (New Bag - Provider: Karishma Stein RN)2308 (Paused - Provider: Karishma Stein RN)2318 (Restarted - Provider: Karishma Stein RN) 0427 (Rate/Dose Verify - Provider: Karishma Stein RN - Comment: [Action automatically changed])0428 (Rate/Dose Change - Provider: Karishma Stein RN)0433 (Rate/Dose Verify - Provider: Karishma Stein RN)0628 (Rate/Dose Verify - Provider: Karishma Stein RN)1140 (New Bag - Provider: Luciana Johnson, RN)1400 (Stopped - Provider: Luciana Johnson RN) sodium chloride 0.9% (NS) (CANCELED) 100 mL/hr, Intravenous, Continuous, Starting on Annalisa 09/14/23 at 0600 0603 (New Bag - Provider: Karishma Stein RN)0628 (Rate/Dose Verify - Provider: Karishma Stein RN)1657 (New Bag - Provider: Luciana Johnson RN) 0900 (Stopped - Provider: Princses Cruz LPN) PRN Medication Order 09/13/2023 09/14/2023 09/15/2023 acetaminophen (TYLENOL) tablet 650 mg 650 mg, Oral, Every 4 hours PRN, mild pain, fever 100.4 F or greater, headaches, Starting on 09/13/23 at 1630 heparin bolus from bag 0-5,000 Units (CANCELED) 0-5,000 Units, Intravenous, Continuous PRN, IF the MAR calculator for heparin infusion specifies a bolus from bag is to be administered, Starting on 09/13/23 at 1727, Choose one of the following protocols: Cardiac / Arterial, Bolus options: Protocol WITHOUT initial bolus only, For Downtime Calculator, use: Heparin Infusion Standard 0429 (Bolus from Bag - Provider: Karishma Stein RN) iopamidoL (ISOVUE-370) 370 mg iodine /mL (76 %) injection 125 mL (COMPLETED) 125 mL, Intravenous, Once in imaging, contrast, Starting on Annalisa 09/14/23 at 0933, For 1 dose 0935 (Contrast Administered - Provider: Andrez Calabrese, TECHNOLOGIST) ondansetron (ZOFRAN) injection 4 mg(Linked Group 3) 4 mg, Intravenous, Every 6 hours PRN, nausea, vomiting, Starting on Mon09/13/23 at 1630, Use oral route first, if tolerated. ondansetron (ZOFRAN-ODT) disintegrating tablet 4 mg(Linked Group 3) 4 mg, Oral, Every 6 hours PRN, nausea, vomiting, Starting on 09/13/23 at 1630, Use oral route first, if tolerated. Formulation requires tablet remain in sealed package until immediately prior to dose being administered. perflutren lipid microspheres (DEFINITY) 0.143 mg/mL solution 0-10 mL of mixture 0-10 mL of mixture, Intravenous, Once in imaging, contrast, IF suboptimal echo, Starting on Mon09/13/23 at 1641, For 48 hours, Prepare syringe by withdrawing 1.3 mL of perflutren (DEFINITY) from the 2ml vial. Further dilute the 1.3 mL of perflutren with Sodium Chloride (NS) 0.9% to total volume of 10 ml. Chart total ML OF MIXTURE given to patient. 1450 (Given - Provider: Michelle Weber RN) sodium chloride (PF) (NS) 0.9 % contrast line flush 10 mL (COMPLETED)(Linked Group 4) 10 mL, Intravenous, Once in imaging, contrast, Per magazine keeper (Radiology) for line patency check prior to contrast administration, Starting on Annalisa 09/14/23 at 0933, For 1 dose 0938 (Given - Provider: Andrez Calabrese, TECHNOLOGIST) sodium chloride (PF) (NS) 0.9 % contrast line flush 80 mL (COMPLETED)(Linked Group 4) 80 mL, Intravenous, Once in imaging, contrast, Per magazine keeper (Radiology), Starting on Annalisa 09/14/23 at 0933, For 1 dose, 30 mL BEFORE contrast administration 50 mL AFTER contrast administration 09 (Given - Provider: MANE GuidryOLOGIST) sodium chloride (PF) (NS) flush 5 mL(Linked Group 2) 5 mL, Intravenous, As needed, line care, Starting on Mon09/13/23 at 1630 sodium chloride 0.9% (NS)(Linked Group 2) 0-150 mL/hr, Intravenous, As needed, To flush line after IV infusions when no maintenance IV ordered or a compatibility issue. Infuse 20ml at the same rate as the secondary infusion, Starting on Mon09/13/23 at 1630, Run as Primary IV. NOT intended for KVO. traZODone (DESYREL) tablet 50 mg 50 mg, Oral, Nightly PRN, sleep, Starting on Mon09/13/23 at 1630, May repeat times 1 in 30 minutes if still awake. 2037 (Given - Provider: Kenisha Ricci RN) Linked Groups Order Group 1: insulin lispro (AdmeLOG,HumaLOG) injection 0-15 UnitsJump to med 0-15 Units, Subcutaneous, At bedtime, First dose on Mon09/13/23 at 2100
IF initial POC glucose is greater than 250, administer insulin as directed and re-check POC glucose no sooner than 2 hours after administration. THEN notify provider if POC glucose is still greater than 250.
For nightly BG greater than 250, give: Half ( ) Corrective Scale
Nightly Prandial Snack Dosing Method: NO Snack Coverage - Corrective Scale ONLY
Nightly Insulin Dose Corrective Scale: FOLLOW DAYTIME Prandial Corrective Scale
Corrective Insulin Regimen (select desired scale to cover BG result): USUAL Sensitivity Scale
(REMINDER: Nightly Insulin Dose Corrective Scale will be automatically calculated to be of the daytime scale)
Dose Reduction Threshold (at meals) for POC Blood Glucose less than or equal to: 80
For Downtime Calculator, use: Insulin SC NIGHTtime And Notify physician (CANCELED) Routine, Until discontinued, Starting on Mon09/13/23 at 1734, Until Specified
Other: IF HS POC Glucose RE-CHECK Greater than 250
If initial HS POC glucose is greater than 250, administer insulin as directed and re-check POC glucose no sooner than 2 hours after administration. IF RE-CHECK POC glucose is still greater than 250, notify provider. Group 2: Saline lock IV (CANCELED) Routine, Continuous, Starting on Mon09/13/23 at 1631, Until Specified And sodium chloride (PF) (NS) flush 5 mLJump to med 5 mL, Intravenous, As needed, line care, Starting on Mon09/13/23 at 1630 And sodium chloride (PF) (NS) flush 5 mLJump to med 5 mL, Intravenous, Every 8 hours scheduled, First dose on Mon09/13/23 at 1730
Saline lock
And sodium chloride 0.9% (NS)Jump to med 0-150 mL/hr, Intravenous, As needed, To flush line after IV infusions when no maintenance IV ordered or a compatibility issue. Infuse 20ml at the same rate as the secondary infusion, Starting on Mon09/13/23 at 1630
Run as Primary IV. NOT intended for KVO.
Group 3: ondansetron (ZOFRAN-ODT) disintegrating tablet 4 mgJump to med 4 mg, Oral, Every 6 hours PRN, nausea, vomiting, Starting on Mon09/13/23 at 1630
Use oral route first, if tolerated. Formulation requires tablet remain in sealed package until immediately prior to dose being administered.
Or ondansetron (ZOFRAN) injection 4 mgJump to med 4 mg, Intravenous, Every 6 hours PRN, nausea, vomiting, Starting on Mon09/13/23 at 1630
Use oral route first, if tolerated.
Group 4: sodium chloride (PF) (NS) 0.9 % contrast line flush 10 mL (COMPLETED)Jump to med 10 mL, Intravenous, Once in imaging, contrast, Per magazine keeper (Radiology) for line patency check prior to contrast administration, Starting on Annalisa 09/14/23 at 0933, For 1 dose And sodium chloride (PF) (NS) 0.9 % contrast line flush 80 mL (COMPLETED)Jump to med 80 mL, Intravenous, Once in imaging, contrast, Per magazine keeper (Radiology), Starting on Annalisa 09/14/23 at 0933, For 1 dose
30 mL BEFORE contrast administration 50 mL AFTER contrast administration
Source Comments (unrecognize d section and content) In the event this informatio n is protected by the Federal Confidentiality of Alcohol and Drug Abuse Patient Records regulations: The Federal rules restrict any use of the information to criminally investigate or prosecute any alcohol or drug abuse patient.[facility]In the event this information is protected by the Federal Confidentiality of Alcohol and Drug Abuse Patient Records regulations: The Federal rules restrict any use of the information to criminally investigate or prosecute any alcohol or drug abuse patient.[facility] HospitalIn the event this information is protected by the Federal Confidentiality of Alcohol and Drug Abuse Patient Records regulations: The Federal rules restrict any use of the information to criminally investigate or prosecute any alcohol or drug abuse patient.[facility] HospitalIn the event this information is protected by the Federal Confidentiality of Alcohol and Drug Abuse Patient Records regulations: The Federal rules restrict any use of the information to criminally investigate or prosecute any alcohol or drug abuse patient.[facility] HospitalIn the event this information is protected by the Federal Confidentiality of Alcohol and Drug Abuse Patient Records regulations: The Federal rules restrict any use of the information to criminally investigate or prosecute any alcohol or drug abuse patient.[facility] HospitalIn the event this information is protected by the Federal Confidentiality of Alcohol and Drug Abuse Patient Records regulations: The Federal rules restrict any use of the information to criminally investigate or prosecute any alcohol or drug abuse patient.[facility] HospitalIn the event this information is protected by the Federal Confidentiality of Alcohol and Drug Abuse Patient Records regulations: The Federal rules restrict any use of the information to criminally investigate or prosecute any alcohol or drug abuse patient.[facility] HospitalIn the event this information is protected by the Federal Confidentiality of Alcohol and Drug Abuse Patient Records regulations: The Federal rules restrict any use of the information to criminally investigate or prosecute any alcohol or drug abuse patient.[facility] HospitalIn the event this information is protected by the Federal Confidentiality of Alcohol and Drug Abuse Patient Records regulations: The Federal rules restrict any use of the information to criminally investigate or prosecute any alcohol or drug abuse patient.[facility] HospitalIn the event this information is protected by the Federal Confidentiality of Alcohol and Drug Abuse Patient Records regulations: The Federal rules restrict any use of the information to criminally investigate or prosecute any alcohol or drug abuse patient.[facility] HospitalIn the event this information is protected by the Federal Confidentiality of Alcohol and Drug Abuse Patient Records regulations: The Federal rules restrict any use of the information to criminally investigate or prosecute any alcohol or drug abuse patient.[facility] HospitalIn the event this information is protected by the Federal Confidentiality of Alcohol and Drug Abuse Patient Records regulations: The Federal rules restrict any use of the information to criminally investigate or prosecute any alcohol or drug abuse patient.[facility] HospitalIn the event this information is protected by the Federal Confidentiality of Alcohol and Drug Abuse Patient Records regulations: The Federal rules restrict any use of the information to criminally investigate or prosecute any alcohol or drug abuse patient.[facility] HospitalIn the event this information is protected by the Federal Confidentiality of Alcohol and Drug Abuse Patient Records regulations: The Federal rules restrict any use of the information to criminally investigate or prosecute any alcohol or drug abuse patient.[facility] HospitalIn the event this information is protected by the Federal Confidentiality of Alcohol and Drug Abuse Patient Records regulations: The Federal rules restrict any use of the information to criminally investigate or prosecute any alcohol or drug abuse patient.[facility] HospitalIn the event this information is protected by the Federal Confidentiality of Alcohol and Drug Abuse Patient Records regulations: The Federal rules restrict any use of the information to criminally investigate or prosecute any alcohol or drug abuse patient.[facility] HospitalIn the event this information is protected by the Federal Confidentiality of Alcohol and Drug Abuse Patient Records regulations: The Federal rules restrict any use of the information to criminally investigate or prosecute any alcohol or drug abuse patient.[facility] HospitalIn the event this information is protected by the Federal Confidentiality of Alcohol and Drug Abuse Patient Records regulations: The Federal rules restrict any use of the information to criminally investigate or prosecute any alcohol or drug abuse patient.[facility] HospitalIn the event this information is protected by the Federal Confidentiality of Alcohol and Drug Abuse Patient Records regulations: The Federal rules restrict any use of the information to criminally investigate or prosecute any alcohol or drug abuse patient.[facility] HospitalIn the event this information is protected by the Federal Confidentiality of Alcohol and Drug Abuse Patient Records regulations: The Federal rules restrict any use of the information to criminally investigate or prosecute any alcohol or drug abuse patient.[facility] HospitalIn the event this information is protected by the Federal Confidentiality of Alcohol and Drug Abuse Patient Records regulations: The Federal rules restrict any use of the information to criminally investigate or prosecute any alcohol or drug abuse patient.[facility] HospitalIn the event this information is protected by the Federal Confidentiality of Alcohol and Drug Abuse Patient Records regulations: The Federal rules restrict any use of the information to criminally investigate or prosecute any alcohol or drug abuse patient.[facility] HospitalIn the event this information is protected by the Federal Confidentiality of Alcohol and Drug Abuse Patient Records regulations: The Federal rules restrict any use of the information to criminally investigate or prosecute any alcohol or drug abuse patient.[facility] HospitalIn the event this information is protected by the Federal Confidentiality of Alcohol and Drug Abuse Patient Records regulations: The Federal rules restrict any use of the information to criminally investigate or prosecute any alcohol or drug abuse patient.[facility] HospitalIn the event this information is protected by the Federal Confidentiality of Alcohol and Drug Abuse Patient Records regulations: The Federal rules restrict any use of the information to criminally investigate or prosecute any alcohol or drug abuse patient.[facility] HospitalIn the event this information is protected by the Federal Confidentiality of Alcohol and Drug Abuse Patient Records regulations: The Federal rules restrict any use of the information to criminally investigate or prosecute any alcohol or drug abuse patient.[facility] HospitalIn the event this information is protected by the Federal Confidentiality of Alcohol and Drug Abuse Patient Records regulations: The Federal rules restrict any use of the information to criminally investigate or prosecute any alcohol or drug abuse patient.[facility] HospitalIn the event this information is protected by the Federal Confidentiality of Alcohol and Drug Abuse Patient Records regulations: The Federal rules restrict any use of the information to criminally investigate or prosecute any alcohol or drug abuse patient.[facility] HospitalIn the event this information is protected by the Federal Confidentiality of Alcohol and Drug Abuse Patient Records regulations: The Federal rules restrict any use of the information to criminally investigate or prosecute any alcohol or drug abuse patient.[facility] Inactive Administered Medications - up to 3 most recent administrations Administered Medications (un recognized section and content) Medication Order MAR Action Action Date Dose Rate Site perflutren lipid microspheres 1.3 mL in NaCl (PF) 0.9% 10 mL injection (DEFINITY) INTRAVENOUS, DIRECTED NEEDED, 1 dose, Starting on Mon09/18/23 at 1417, Until Mon09/18/23 at 1459, Per Protocol - for use during ECHO procedure only, If no IV access, insert saline lock prior to administering contrast. Discontinue saline lock post exam. If patient has central line or IVAD, may access for administration according to line specific nursing protocol. Once exam is complete, flush line and de-access per line specific nursing protocol.Dilute 1.3 ml of Definity with 8.7 ml of preservative-free saline., Cardiac Procedure Med Orders Given 09/18/2023 2:59 PM EST 3 mL FOR RECORDS PERTAINING TO PATIENTS WHO ARE [...] BE BASED ON THE PRIMARY CLINICAL RECORDS. [employer] provides no warranty or guarantee of the accuracy or completeness of information in this document.
== END 2023-10-13 11:41 | disposition home or self-care (01) ==
LOC: WC 11:40
PROVIDERS: Family Provider Family Medicine; PCP Family Medicine; Visit Provider Podiatrist Foot & Ankle Surgery
DX: E11.621 Type 2 diabetes mellitus with foot ulcer (principal); L97.412 Non-pressure chronic ulcer of right heel and midfoot with fat layer exposed; L97.912 Non-pressure chronic ulcer of unspecified part of right lower leg with fat layer exposed; L97.511 Non-pressure chronic ulcer of other part of right foot limited to breakdown of skin; I50.22 Chronic systolic (congestive) heart failure; N18.30 Chronic kidney disease, stage 3 unspecified; E11.22 Type 2 diabetes mellitus with diabetic chronic kidney disease; I13.0 Hypertensive heart and chronic kidney disease with heart failure and stage 1 through stage 4 chronic kidney disease, or unspecified chronic kidney disease; I73.9 Peripheral vascular disease, unspecified
CPT/HCPCS: 73630; G0463

== ENCOUNTER 2023-10-23 07:25 | Outpatient (OUT) | payer OTHER, SELFPAY ==
--- OUTSIDE RECORDS SUMMARY | 2023-10-23 07:34 | XMS_ITS | CCD ---
Author Name Unknown Address [address] [place] [address] Organization [facility] Care Team Providers Care Possum Trapper Name Role Phone Jeff Cerda Unavailable AYDE NICOLE Unavailable Unavailab le VIGESAYDE HARRISON Unavailable Unavailab le JEFF CERDA Unavailable Unavailable Ayde Nicole Unavailable Unavailable VigAyde red Unavailable Unavailable PHYSICIAN, DEFAULT Unavailable Unavailable PHYSICIAN, [...] Provider Jeff Cerda MD Primary Care Provider [phone] Shahab Buckley MD Unavailable Jeff Cerda MD Primary Care Provider [phone] Jeff Cerda MD Primary Care Provider Jeff Cerda MD Primary Care Provider [phone] Shahab Buckley MD Unavailable Jeff Cerda MD Primary Care Provider [phone] GURWINDER TRUONG Attending Unavailable GURWINDER TRUONG Admitting [...] J Primary Care Unavailable Xander YAN MD, Brenda Huang Primary Care Provider Osiris Duran Consulting Unavailable NON STAFF Primary Care Unavailable Meena Falcon Admitting Unavailable Meena Falcon Attending Unavailable Rebecca Liriano Consulting Unavailable Nakul Salcedo Consulting Unavailable Jef Aviles Consulting Unavail able Jason Manuel Consulting Unavailable Mike Corea Consulting Unavailab Delaney Blankenship Consulting Unavailable Ana Nielson Consulting Unavailable Ivno Dumont Consulting Unavailab Shelton Foster Consulting Unavailable Soledad Ho Consulting Unavailable Joyce Latham Consulting Unavailable Sanjeev Ontiveros Consulting Unavailable [facility], Mikael Unavailable [phone] Jeff Cerda MD Primary Care Provider JEFF CERDA Primary Care Unavailable SHAHAB BUCKLEY Attending UnavailJeff Chaparro MD Primary Care Provider Jeff Cerda MD Unavailable SHAHAB BUCKLEY Attending Unavailabl e JEFF CERDA Primary Care Unavailable SHAHAB BUCKLEY Admitting UnavailSHAHAB Cardenas Attending UnavailSHAHAB Cardenas Referring Unavailabl e JEFF CERDA Primary Care Unavailable PATITO ÁLVAREZ Admitting Unavailable HEMELULI, EDMICHAEL Mcpherson Primary Care Unavailable EVA MENDEZ Attending Unavailable SHAHAB BUCKLEY Consulting Unavailabl e JEFF CERDA Primary Care Unavailab SOLITARIO Conteh Referring Unava ilable [facility] Primary Care Unavailab LAISHA Dumont Referring Unavaila ble SOLITARIO CANTOR Attending Unava ilable KARLEE, OUSSAMA M Referring Unavailable [facility] Care Unavailab le TERRELL II, BRENDA B Primary Care Unavailable HSICH, MIRA M Referring Unavailable TERRELL II, BRENDA B Primary Care Unavailable HSICH, MIRA M Referring Unavailable TERRELL II, BRENDA B Primary Care Unavailable HSICH, MIRA M Referring Unavailable YANNICK ZUÑIGA Attending Unavailable YANNICK ZUÑIGA Referring Unavailable [facility] Primary Care Unavailab le [facility] Primary Care Unavailab le YANNICK ZUÑIGA Referring Unavailable [facility] Care Unavailab le [place] Attending Unavailabl e [facility] Primary Care Unavailab Vida Acuña Attending Unavailable [facility] Care Unavailab le KARLEE, OUSSAMA M Referring Unavailable [facility] Primary Care Unavailab le CARMINAI, OUSSAMA M Referring Unavailable [facility] Primary Care Unavailab LUC Ram Attending Unavailable [facility] Care Unavailab le [facility] Care Unavailab le XAVIER-NLIAM, CHETE Admitting Unavailable TERRELL II, BRENDA B Primary Care Unavailable JOLANTA, SANJEEB Attending Unavailabl e TERRELL II, BRENDA B Primary Care Unavailable YANNICK ZUÑIGA Attending Unavailable FANY TA Attending Unavailable CARMINAI, OUSSAMA M [facility] XAVIER-NLIAM, CHETE Referring Unavailable TERRELL II, BRENDA B Primary Care Unavailable TERRELL II, BRENDA B Primary Care Unavailable WAZNI, OUSSAMA M Referring Unavailable XAVIER-NLIAM, CHETE Attending Unavailable XAVIER-NLIAM, CHETE Admitting Unavailable TERRELL II, BRENDA B Primary Care Unavailable WAZNI, OUSSAMA M Referring Unavailable TERRELL II, BRENDA B Primary Care Unavailable YANNICK ZUÑIGA Referring Unavailable TERRELL II, BRENDA B Primary Care Unavailable YANNICK ZUÑIGA Referring Unavailable WAZNI, OUSSAMA M Referring Unavailable JEFF CERDA Primary Care Unavailab le Medications Current Medications Medication Drug Class(es) Dates Sig (Normalized) Sig (Original) acetaminophen 325 mg / HYDROcodone bitartrate 5 mg oral tablet (1 source) Opioid Agonist Start: 11-23-2020 End: 11-23-2020 HYDROcodone-acet aminophen (NORCO) 5-325 MG per tablet 1 tablet amoxicillin 875 mg / clavulanate 125 mg oral tablet (20 sources) Penicillin-class Antibacterial Start: 10-20-2023 End: 11-03-2023 take 1 tablet by mouth twice daily amoxicillin-clav ulanate potassium (AUGMENTIN) 875-125 mg per tablet Take 1 tablet by mouth two times a day for 14 days. 28 tablet 0 10/20/2023 11/03/2023 Active Start: 04-13-2023 End: 09-18-2023 take 1 tablet by mouth every eight hours amoxicillin-clavulanic acid (AUGMENTIN) 500-125 mg per tablet [...] by josé luis th every 8 hours. Take 1 tablet by josé luis th two times a day for 14 days. cholecalciferol 0.025 mg oral tablet (20 sources) [...] 8,000 Units by mouth daily 0 Active collagenase 0.25 unt/mg topical ointment (1 source) Collagen-specific Enzyme Start: 08-26-2023 SantyL ointment Apply topically daily Right Heel . 0 08/26/2023 Active Continuous Blood Gluc Director Of Field Sales (FreeStyle Enmanuel 2 [place]) device (1 source) Start: 06-02-2023 End: 06-01-2024 Continuous Blood Gluc Director Of Field Sales (FreeStyle Enmanuel 2 [place]) device Indications: Type 2 diabetes mellitus with diabetic polyneuropathy, with long-term current use of insulin (CMS/HCC) , MCC current use of insulin (CMS/HCC) , Type [...] Blood Gluc Sensor (FreeStyle Enmanuel 2 Sensor) misc (1 source) Start: 06-02-2023 End: 11-17-2023 Continuous Blood Gluc Sensor (FreeStyle Enmanuel 2 Sensor) misc Indications: Type 2 diabetes mellitus with diabetic polyneuropathy, with long-term current use of insulin (CMS/HCC) , 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 famotidine 20 mg oral tablet [...] TABLET BY MOUTH EVERY EVENING 90 tablet 09/08/2022 Active take 2 tablets by mo ut twice daily furosemide (LASIX) 20 MG tablet Take 20 mg by mouth 2 (two) times a day 2 tablets . 0 Active furosemide (LASI X) 10 mg/mL solution Take by mouth daily. Active Comment on above: Take 2 tablets by mo [facility] once daily. 1 ml HYDROmorphone hydrochloride 1 [...] Start: 11-23-2020 meperidine (DEMEROL) injection 12.5 mg omeprazole 40 mg delayed release oral [...] mouth 2 times daily Samples x2 lot #[id number] exp date 07/27 0 10/17/2019 Discontinued (DOSE [...] and Sundays or as directed. Managed by [facility] 90 tablet 1 02/15/2022 06/01/2022 Discontinued (DOSE ADJUSTMENT) Start: 02-15-2022 End: 02-22-2022 warfarin (COUMADIN) 5 MG tab let Take 1/2 tablet (2.5 mg warfarin) on Mondays, Wednesdays, and Fridays or as directed. Managed by [facility] 30 tablet 3 02/15/2022 02/22/2022 Discontinued (DOSE ADJUSTMENT) Start: 01-27-2022 warfarin (COUM JONH) 2.5 MG tablet Take 1/2 tablet daily or as directed. Managed by [facility] 90 tablet 1 01/27/2022 Active Start: 01-13-2022 End: 09-06-2023 warfarin (COUMADIN) 5 MG tab let Take 1/2 tablet EVERY DAY of the week (except skip Fridays) or as directed. Managed by [facility] 90 tablet 3 01/20/2022 01/27/2022 Discontinued [...] the week or as directed. Managed by [facility] 90 tablet 3 08/14/2020 Active Comment on [...] 0 Active take 3 tablets by mo ut once daily in the morning allopurinol (ZYLOPRIM) 100 MG tablet Take 3 tablets by mouth every morning 0 Active Comment on above: Take 1 tablet by josé luis th once daily. Take a half tablet b y mouth once daily. apixaban 5 mg oral tablet (20 sources) Factor Xa Inhibitor Start: 09-05-2023 End: 09-15-2023 take 1 tablet by mouth twice daily apixaban (ELIQUIS) 5 mg tab(s) Take 1 tablet by mouth two times a day. 60 tablet 3 09/05/2023 Active Start: 05-12-2023 take 1 tablet [...] by josé luis th once daily. atorvastatin 40 mg oral tablet (20 sources) HMG-CoA Reductase Inhibitor Start: 09-13-2023 End: 09-15-2023 take 80 mg by mouth once daily 80 mg, Oral, Nightly, First dose on Mon09/13/23 at 2100 Start: 01-09-2023 take 1 tablet by josé luis th once daily atorvastatin (LIPITOR) 80 mg tablet Take 1 tablet by mouth once daily. 0 01/09/2023 Active Start: 12-29-2021 End: 04-27-2022 take 1 tablet by mouth once daily atorvastatin (Lipitor) 80 MG tablet Take 1 (one) tablet (80 mg total) by mouth daily . 30 tablet 11 01/25/2022 Active Comment on above: Take 1 tablet by josé ulis th once daily. calcium chloride 0.0014 meq/ml / potassium chloride 0.004 meq/ml / sodium chloride 0.103 meq/ml / sodium lactate 0.028 meq/ml injectable solution (4 sources) Start: End: take 75 mL intravenously every hour 75 [...] CLEANUP) doxycycline hyclate 50 mg oral capsule (11 sources) Tetracycline-class Drug Start: 09-05-19 take 1 [...] on above: Take 1 capsule by mo [facility] two times a day. empagliflozin 10 mg oral tablet (20 sources) Sodium-Glucose Cotransporter 2 Inhibitor Start: 04-13-20 take 1 tablet by mouth once daily empagliflozin (JARDIANCE) 10 mg tablet Take 1 tablet by mouth once daily. 90 tablet 3 04/13/2023 Active Comment on above: Take 1 tablet by josé luis th once daily. FIBER COMPLETE PO (20 sources) [...] Mon12/28/21 at 2200 take 1 capsule by [facility] three times daily gabapentin (NEURONTIN) 300 MG [...] mouth twice daily at 6AM and 9PM. sodium hypochlorite 1.25 mg/ml topical solution (3 sources) Start: 10-20-2023 sodium hypochlorite (DAKIN'S SOLUTION) 0.125 % soln Irrigate 20 mL as instructed two times a day. 473 mL 1 10/20/2023 Active Comment on above: Irrigate 20 mL as in structed two times a day. indocyanine green (IC-GREEN) syringe 5 mg (1 [...] bedtime. insulin lispro 100 unt/ml injectable solution (16 sources) Insulin Analog Start: 09-13-2023 End: 09-15-2023 [...] oral tablet (20 sources) Biguanide Start: End: 05-25-2 022 take 30 mL by mouth twice daily [...] mg by mouth twice daily with meals. metoclopramide 5 mg oral tablet (4 sources) Dopamine-2 Receptor Antagonist Start: 10-20-19 take 1 tablet by mouth four times daily metoclopramide HCl (REGLAN) 5 mg tablet Take 1 tablet by mouth four times daily. 30 tablet 1 10/20/2023 Active Start: 11-23-2020 End: 11-23-2020 metoclopramide (REGLAN) inje ction 10 mg Comment on above: Take 1 tablet by josé luis th four times daily. 24 hr metoprolol succinate 25 mg extended release oral tablet (20 sources) beta-Adrenergic Alexa Start: 09-13-2023 End: 09-15-2023 take 25 mg by mouth once daily 25 mg, Oral, Daily, First dose on Mon09/13/23 at 1800 DO NOT CRUSH OR CHEW. Start: 04-13-2023 take 1 tablet by josé luis th twice daily metoprolol succinate ER [...] 09-08-2022 take 1 tablet by josé luis once daily metoprolol succinate (TOPROL XL) 50 MG extended release tablet TAKE 1 TABLET BY MOUTH EVERY DAY 30 tablet 09/08/2022 Active Start: 10-14-2021 End: 12-29-2021 take 1 tablet by mouth once daily metoprolol succinate (TOPROL XL) 50 MG extended release tablet TAKE 1 TABLET BY MOUTH EVERY DAY 30 tablet 10/14/2021 Active Start: 10-19-2020 take 1 tablet by josé luis once daily metoprolol succinate (TOPROL XL) 50 MG extended release tablet TAKE 1 TABLET BY MOUTH EVERY DAY 30 tablet 10/19/2020 Active Start: 10-12-2018 End: 10-17-2019 take 1 tablet by mouth once daily metoprolol succinate (TOPROL XL) 50 MG extended release tablet TAKE 1 TABLET BY MOUTH EVERY DAY 30 tablet 10/17/2019 Active take 2 tablets by mo [facility] once daily metoprolol succinate (TOPROL-XL) 25 MG 24 hr tablet Take 2 (two) tablets (50 mg total) by mouth daily . 0 Active take 1 tablet by josé luis once daily metoprolol succinate (TOPROL-XL) 25 MG 24 hr tablet Take 50 mg by mouth daily . 0 Active take 1 tablet by josé luis once daily metoprolol succinate (TOPROL-XL) 25 MG 24 hr tablet Take 25 mg by mouth daily. Active Comment on above: Take 1 tablet by josé luis twice daily. Take 1 tablet by josé [...] 12/28/2021 Discontinued ondansetron 4 mg oral tablet (16 sources) Serotonin-3 Receptor Antagonist Start: 2 End: 2 take 1 tablet by mouth three times daily as needed ondansetron (ZOFRAN) 4 MG tablet Take 4 mg by mouth 3 times daily as needed 0 01/20/2022 06/01/2022 Discontinued (Therapy completed) ondansetron HCl (ZOFRAN ORAL) Take by mouth. 0 Active Comment on above: Take by mouth. ondansetron (ZOFRAN-ODT) disintegrating tablet 4 mg (1 source) Start: 4 End: 4 take 1 tablet by mouth every six hours as needed for nausea and vomiting ondansetron (ZOFRAN-ODT) disintegrating tablet 4 mg perflutren lipid microspheres (DEFINITY) 0.143 mg/mL solution 0-10 mL of mixture (2 sources) Start: 4 End: 4 perflutren lipid microspheres (DEFINITY) 0.143 mg/mL solution 0-10 mL of mixture Start: 12-28-2021 End: 12-29-2021 perflutren lipid microsphere s (DEFINITY) 0.143 mg/mL solution 0-10 mL of mixture perflutren lipid microspheres 1.3 mL in NaCl (PF) 0.9% 10 mL injection (DEFINITY) (1 source) Start: 09-18-2023 End: 09-18-2023 perflutren [...] BY MOUTH EVERY DAY 30 tablet 11 01/24/2022 Active Start: 02-11-2019 End: 09-06-2023 take 1 tablet by mouth once daily spironolactone (ALDACTONE) 25 MG tablet TAKE 1 TABLET BY MOUTH EVERY DAY 30 tablet 11 02/17/2021 Active Comment on above: Take 1 tablet by josé luis once daily. technetium sestamibi (CARDIOLITE) injection 30 [...] 03-14-2023 take 1 tablet by josé luis th twice daily torsemide (SOAANZ) 40 mg tablet Take 40 mg by mouth twice daily. 0 03/14/2023 Suspended Comment on above: Take 40 mg by mouth twice daily. Take 4 tablets by mo [facility] twice daily. traZODone hydrochloride 50 mg [...] pain] Episodic Acute and unspecified renal failure (4 sources) Unspecified kidney failure; 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: [Renal failure syndrome] Onset: 03-15-2023 10-18-2023 Chronic Anxiety disorders (20 sources) Fear of [...] 04-26-2023 Episodic Gout and other crystal arthropathies (4 sources) Gout, unspecified; 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: [Gout] Onset: 01-02-2023 10-18-2023 Chronic Mood disorders (20 sources) Moderate major [...] 01-03-2023 03-20-2023 Chronic Other aftercare (1 source) MCC (current) use of aspirin; 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: [CORRECTION CURRENT USE OF ASPIRIN] Onset: 01-02-2023 Episodic Other aftercare (1 source) MCC (current) use of insulin; 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: [CORRECTION CURRENT USE OF INSULIN] Onset: 01-02-2023 Episodic Other aftercare (1 source) 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; 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: [GLASS BLOWING LATHE OPERATOR USE ORAL HYPOGLYCEMIC DX] Onset: 01-02-2023 Episodic Other aftercare (1 source) Drug therapy finding; 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: [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] 09-20-2023 Episodic Other [...] bilirubin metabolism; 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] Onset: 03-20-2023 Chronic Promise-; endo-; and myocarditis; cardiomyopathy (except that [...] 10-31-2017 Unclassified (1 source) New Patient / [id number]() Onset: 09-25-2017 Unclassified (1 source) Dx: Frequent [...] sources) Long-term current use of anticoagulant; 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: [MCC (current) use of anticoagulants] Onset: 08-01-2018 08-01-2018 Episodic Other aftercare (3 sources) 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; 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: [CORRECTION CURRNT USE ANTICOAGULANTS] Onset: 08-01-2018 Episodic Other aftercare (20 sources) Taking high risk medication; 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: [Other mcc (current) drug therapy] Onset: 08-23-2020 03-20-2023 Episodic Other aftercare (20 sources) Long-term current use of insulin; 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: [MCC (current) use of insulin] Onset: 08-21-2017 03-20-2023 Episodic Other aftercare (20 sources) Polypharmacy ; 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: [Other terminal operator (current) drug therapy] Onset: 08-23-2020 03-20-2023 Episodic Other aftercare (3 sources) Long-term current use of oral hypoglycemic medication; 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: [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] Onset: 01-02-2023 10-18-2023 Episodic Other connective tissue disease (20 sources) Right rotator cuff syndrome; 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: [Unspecified rotator cuff tear or rupture of right shoulder, not specified as traumatic] Onset: 01-03-2023 03-20-2023 Episodic Other connective tissue disease (3 sources) Pain in right foot; 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: [Pain in right foot] Onset: 03-10-2023 10-18-2023 Episodic Other screening for suspected conditions (not mental disorders or infectious disease) (7 sources) Increased bilirubin level; 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: [Serum creatinine raised] Onset: 03-15-2023 Episodic Residual codes; unclassified (20 sources) Sleep disorder; 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: [Sleep disorder, unspecified] Onset: 01-03-2023 03-20-2023 Episodic Skin and subcutaneous tissue infections (1 source) Local infection of the skin and subcutaneous tissue, unspecified; 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: [Diabetic foot infection (HCC) (HCC)] Onset: 03-23-2023 Episodic Unclassified (1 source) Follow-up; 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: [Follow-up] Onset: 10-31-2017 Unclassified (1 source) New Patient; 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: [New Patient] Onset: 09-25-2017 Results Test Name Value Interpretation Reference Range Facility [facility] 10-20-2023 ALLIED [facility] HNO ID: [id number] Author: MARY VALDOVINOS RT(Beni) Service: Radiology Author Type: Technologist Type: Allied Health Filed: 10/20/2023 07:49 Note Text: Radiology Service Progress Note PATIENT NAME: Gregg Foster DATE OF SERVICE: October 20, 2023 TIME: 7:49 AM PATIENT IDENTITY VERIFICATION COMPLETED USING TWO (2) IDENTIFIERS: Name and Date of confirmed by patient verbally. FALL SCREENING: Has the patient had 2 falls in the last year or 1 fall with injury or currently using an Ambulatory Assistive Device (Walker, Cane, Wheelchair, Crutches, etc.)? Inpatient: Screened on floor PATIENT GENDER DATA: Male PATIENT RELEVANT IMPLANT DATA REVIEWED: Not Applicable PATIENT PRESENTS WITH AN IMPLANTABLE OR ATTACHED SHEAR OPERATOR HELPER: No RADIOLOGY DEPARTMENT: General X-ray: Exam(s) Completed: Lower Extremity X-Ray(s): Feet, Bilateral PERIPHERAL IV DATA: Not applicable SIGNED BY: RT Madeline(R) October 20, 2023 7:49 AM [facility] CNOVon 10-20-2023 CNOV Office Visit ([facility] ) -------- GREGG FOSTER ([id number]) 1955 M Date Time Provider Department 10/20/23 8:00 AM SOLITARIO CANTOR [facility] During your visit today, we recorded the following information about you: Solitario Cantor DPM 10/20/2023 8:29 AM Signed WHAT MEDICATIONS SHOULD YOU STOP PRIOR TO SURGERY? Medication name When to stop taking medication Aspirin 7 days prior to surgery Percodan Nsaids/ibuprofen: 7 days prior to surgery Advil Medipren Anaprox Mobic Bextra Motrin Indocin Naprosyn Menadol Toradol naproxen sodium: 7 days prior to surgery Aleve Celebrex Ok to take up until midnight the night before surgery Tylenol Ok to take up until midnight the night before surgery Herbal medications: 7 days prior to surgery all that start with G (Ginko, Glucosamine), omega 3's, all fish oils, seaweed PAIN MEDICATIONS INCLUDING: Ok to take up until midnight Vicodin (Hydrocodone) Percocet (Oxycodone) the night before surgery Dilaudid Oxycontin DIABETES CONTROL Ask your physician prior to surgery in reference to these types of medications. BETA BLOCKERS: Make sure to take these Acebutolol (Sectral) Metoprolol (Lopressor, Toprol) medicationswith a small sip Atenolol (Tenormin) Nadolol (Corgard) of water on the morning of Bisoprolol (Zebeta) Nebivolol (Bystolic) surgery. Carvedilol (Coreg) Propranolol (Inderal) Please call your physician about ANY medications not listed here PREPARING FOR SURGERY EXERCISE Exercising, up to the day before your surgery, helps improve your strength, range of motion and endurance. This helps lead to a successful outcome and recovery. Talk with your surgeon about a referral to physical therapy if you would like help developing an exercise program. Why is exercise so important for your recovery? Strengthening exercises improves recovery. Upper body conditioning exercises help reduce muscle soreness and fatigue caused by the use of a walker, crutches, a cane, or other aids. A walking or water exercise program increases endurance, flexibility, and overall strength. CIRCULATION EXERCISES Although swelling is a normal response after surgery, circulation exercises help control swelling and prevent more serious complications, such as blood clots. DIET AND NUTRITION Healthy eating and proper nutrition before your surgery aids the healing process. The better you eat before surgery, the better you?ll feel after surgery! Drink plenty of fluids and stay hydrated. Eat more fiber to help avoid constipation (often caused by pain medications). Foods that contain fiber include corn, peas, beans, avocados, whole wheat pasta and breads, broccoli, almonds. Eat foods rich in iron, such as lean red meat, dark green leafy vegetables, raisins, and prunes. Eat foods high in Vitamin C to help your body absorb iron. Foods that are high in vitamin C include oranges, cantaloupe, and tomatoes. Make sure you are getting enough calcium, which is needed to keep your bones strong. Foods that are high in calcium include milk, cheese, yogurt, dark leafy greens, and fortified cereal. Eat light meals, especially the day before surgery. The combined effects of anesthesia and your medication may slow down your bowel function. This can cause constipation after surgery. SMOKING AND ALCOHOL USE SMOKING Smoking causes breathing problems, increases the risk of medical complications, and slows recovery. Smoking also increases the risk of infection and blood clots after surgery. You cannot smoke while you are in the hospital. We encourage you to stop at least 3-5 days (or more) before your surgery. This will decrease the chances of lung problems and will help to hasten your recovery. ALCOHOL USE Before surgery, it is important to be honest with your health care providers about your alcohol use. Tell your health care provider how many drinks you have per day (or per week). This information helps determine if you are at risk for alcohol withdrawal or other alcohol-related problems that could occur after surgery and affect your recovery. We are here to help you prepare and recover from your surgery as quickly and safely as possible. DIABETES GUIDELINES AND BLOOD GLUCOSE MANAGEMENT Managing your blood glucose is always important, but it is extremely important before surgery. In fact, managing your blood glucose before surgery can help reduce the risk of problems after surgery, such as infection and other complications. Surgery can affect your blood glucose control in many ways. Stress before and after surgery can cause your body to release hormones that may make it more difficult to manage blood glucose levels. Surgery can also affect your normal diet, and may change your usual medication routine. Your diabetes will be managed throughout the entire surgical (more content not included)... Normal [employer] ICD REMOTE CHECKon 4 AV Delay Adaptive Paced Minimum (ms) 140 ms [facility] AV Delay Adaptive Sensed Minimum (ms) 100 ms [facility] Federico LV Pacing Amplitude (volts) 2.3 V [facility] Federico LV Pacing Pulse Width (ms) 0.5 ms [facility] federico LV Sensing Amplitude (mvolts) 1.0 mV [facility] Federico RA Pacing Amplitude (volts) 2.0 V [facility] Federico RA Pacing Polarity BI [facility] RA Pacing Pulse Width (ms) 0.4 ms [facility] RA Sensing Amplitude (mvolts) 0.25 mV [facility] RA Sensing Polarity BI [facility] RV Pacing Amplitude (volts) 2.0 V [facility] RV Pacing Polarity BI [facility] RV Pacing Pulse Width (ms) 0.4 ms [facility] RV Sensing Amplitude (mvolts) 0.3 mV [facility] RV Sensing Polarity BI [facility] Detection Configuration (Vent) 2 - Zone [facility] FastVT_Detection Interval 300 ms [facility] FastVT_Therapy Configuration 1 ATP(s) + 8 Shock(s) [facility] ICD FastVT DetectionStatus ENABLED [facility] ICD-AMS EPISODES 170 {beats}/min [facility] ICD-ATP Episodes (Vent) 4 [facility] ICD-ATRIALFIBRILLATIO N 77 [facility] ICD-ATRIALTACHYCARDIA 77 [facility] ICD-ATRIALTACHYCARDIA 28 [facility] ICD-ATRIALTACHYCARDIA 22 [facility] ICD-ATRIALTACHYCARDIA 4 [facility] ICD-Device Mfg BSX [facility] ICD-Fast Ventricular Tachycardia 22 [facility] ICD-Fast Ventricular Tachycardia 4 [facility] ICD-Fast Ventricular Tachycardia 0 [facility] ICD-LEADIMPEDANCEATRI AL 828 ohm [facility] ICD-Percent Pacing (Atrial) 0 % [facility] ICD-Percent Pacing (Vent) 82 % [facility] ICD-Shocks Aborted (Vent) 0 [facility] [id number] 0 [facility] ICD-SHOCKSABORTED 0 [facility] ICD-SHOCKSDELIVEREDVE NTRICULAR 0 [facility] ICD-Ventricular Fibrillation 0 [facility] Implant Date 10/18/2017 [facility] Lead Impedance (LV) 930 ohm [facility] Lead Impedance (RV) 514 ohm [facility] Lead Impedance High Voltage 89 ohm [facility] Lead1 Mfg BSX [facility] Lead2 Mfg BSX [facility] Lead3 Mfg BSX [facility] Location LV [facility] Location RA [facility] Location RV [facility] Lower Rate (bpm) 60 {beats}/min [facility] LV PACING % 90 % [facility] Max Sensor Rate (bpm) 130 {beats}/min [facility] MDT_PROG_TACHY_ZONE_D ETECTIONS_STATUS ENABLED [facility] Model G247 VIGILANT X4 LAYOUT MAN-D Cl [facility] Model 4671 Acuity X4 Straight C [facility] Model 7841 Ingevity + MRI [facility] Model 0292 [employer] Relianc e 4-Site SG [facility] Pacing Mode DDD [facility] Serial Number [id number] [facility] Serial Number [id number] [facility] Serial Number [id number] [facility] Serial Number [id number] [facility] Test Charge Time 10.2 s [facility] Therapy Status (Vent) Enabled [facility] Thresh LV Capture Amplitude (volts) 0.9 V [facility] Thresh LV Capture Duration (ms) 0.5 ms [facility] Thresh RV Capture Amplitude (VOLTS) 0.7 V [facility] Thresh RV Capture Duration (MS) 0.4 ms [facility] Tracking Rate (bpm) 130 {beats}/min [facility] VF Zone Detection Interval 300 ms [facility] VF Zone Therapy Configuration 1 ATP(s) + 8 Shock(s) [facility] No Panel Informationon 10-08 BLANK _ [facility] ICD-ATRIALTACHYCARDIA 0 [facility] Implant Date 03/31/2023 [facility] US ANKLE/BRACHIAL INDICES EX TREMITY LIMITEDon 10-03-2023 US ANKLE/BRACHIAL INDICES EXTREMITY LIMITED Patient Info Name: GREGG FOSTER Age: 68 years : 1955 Gender: Male Exam Date: 10/03/2023 1:50 PM Patient Status: Outpatient Cloth Winder Machine Operator: Maria De Jesus Majano Referring Physician: SHAHAB BUCKLEY MD; Indications I73.9 - Peripheral vascular disease, unspecified Procedure Description 62181 Limited bilateral noninvasive physiologic studies of upper [...] Jara MD on 10/03/2023 03:57 PM Normal [facility] CV IR ANGIO RIGHT LOWER EXTR EMITYon 09-27-2023 CV IR ANGIO RIGHT LOWER EXTREMITY Please see OpNote in Notes tab for results. Please see OpNote in Notes tab for results. Please see OpNote in Notes tab for results. Normal [facility] ICD REMOTE CHECKon 4 AV Delay Adaptive Paced Minimum (ms) 140 ms [facility] AV Delay Adaptive Sensed Minimum (ms) 100 ms [facility]ico LV Pacing Amplitude (volts) 2.3 V [facility] LV Pacing Pulse Width (ms) 0.5 ms [facility] federico LV Sensing Amplitude (mvolts) 1.0 mV [facility] RA Pacing Amplitude (volts) 2.0 V [facility] RA Pacing Polarity BI [facility] RA Pacing Pulse Width (ms) 0.4 ms [facility] RA Sensing Amplitude (mvolts) 0.25 mV [facility] RA Sensing Polarity BI [facility] RV Pacing Amplitude (volts) 2.0 V [facility] RV Pacing Polarity BI [facility] Fdeerico RV Pacing Pulse Width (ms) 0.4 ms [facility] RV Sensing Amplitude (mvolts) 0.3 mV [facility] RV Sensing Polarity BI [facility] Detection Configuration (Vent) 2 - Zone [facility] FastVT_Detection Interval 300 ms [facility] FastVT_Therapy Configuration 1 ATP(s) + 8 Shock(s) [facility] ICD FastVT DetectionStatus ENABLED [facility] ICD-AMS EPISODES 170 {beats}/min [facility] ICD-ATP Episodes (Vent) 4 [facility] ICD-ATRIALFIBRILLATIO N 77 [facility] ICD-ATRIALTACHYCARDIA 77 [facility] ICD-ATRIALTACHYCARDIA 28 [facility] ICD-ATRIALTACHYCARDIA 22 [facility] ICD-ATRIALTACHYCARDIA 4 [facility] ICD-Device Mfg BSX [facility] ICD-Fast Ventricular Tachycardia 22 [facility] ICD-Fast Ventricular Tachycardia 4 [facility] ICD-Fast Ventricular Tachycardia 0 [facility] ICD-LEADIMPEDANCEATRI AL 817 ohm [facility] ICD-Percent Pacing (Atrial) 0 % [facility] ICD-Percent Pacing (Vent) 81 % [facility] ICD-Shocks Aborted (Vent) 0 [facility] [id number] 0 [facility] ICD-SHOCKSABORTED 0 [facility] ICD-SHOCKSDELIVEREDVE NTRICULAR 0 [facility] ICD-Ventricular Fibrillation 0 [facility] Implant Date 10/18/2017 [facility] Lead Impedance (LV) 914 ohm [facility] Lead Impedance (RV) 515 ohm [facility] Lead Impedance High Voltage 90 ohm [facility] Lead1 Mfg BSX [facility] Lead2 Mfg BSX [facility] Lead3 Mfg BSX [facility] Location LV [facility] Location RA [facility] Location RV [facility] Lower Rate (bpm) 60 {beats}/min [facility] LV PACING % 89 % [facility] Max Sensor Rate (bpm) 130 {beats}/min [facility] MDT_PROG_TACHY_ZONE_D ETECTIONS_STATUS ENABLED [facility] Model G247 VIGILANT X4 LAYOUT MAN-D Cl [facility] Model 4671 Acuity X4 Straight C [facility] Model 7841 Ingevity + MRI [facility] Model 0292 [place] Relianc e 4-Site SG [facility] Pacing Mode DDD [facility] Serial Number [id number] [facility] Serial Number [id number] [facility] Serial Number [id number] [facility] Serial Number [id number] [facility] Test Charge Time 9.9 s [facility] Therapy Status (Vent) Enabled [facility] Thresh LV Capture Amplitude (volts) 0.9 V [facility] Thresh LV Capture Duration (ms) 0.5 ms [facility] Thresh RV Capture Amplitude (VOLTS) 0.7 V [facility] Thresh RV Capture Duration (MS) 0.4 ms [facility] Tracking Rate (bpm) 130 {beats}/min [facility] VF Zone Detection Interval 300 ms [facility] VF Zone Therapy Configuration 1 ATP(s) + 8 Shock(s) [facility] No Panel Informationon 09-25 BLANK _ [facility] ICD-ATRIALTACHYCARDIA 0 [facility] Implant Date 03/31/2023 [facility] ICD REMOTE CHECKon AV Delay Adaptive Paced Minimum (ms) 140 ms [facility] AV Delay Adaptive Sensed Minimum (ms) 100 ms [facility]ico LV Pacing Amplitude (volts) 2.3 V [facility] LV Pacing Pulse Width (ms) 0.5 ms [facility] federico LV Sensing Amplitude (mvolts) 1.0 mV [facility] RA Pacing Amplitude (volts) 2.0 V [facility] RA Pacing Polarity BI [facility] RA Pacing Pulse Width (ms) 0.4 ms [facility] RA Sensing Amplitude (mvolts) 0.25 mV [facility] RA Sensing Polarity BI [facility] RV Pacing Amplitude (volts) 2.0 V [facility] RV Pacing Polarity BI [facility] RV Pacing Pulse Width (ms) 0.4 ms [facility] RV Sensing Amplitude (mvolts) 0.3 mV [facility] RV Sensing Polarity BI [facility] Detection Configuration (Vent) 2 - Zone [facility] FastVT_Detection Interval 300 ms [facility] FastVT_Therapy Configuration 1 ATP(s) + 8 Shock(s) [facility] ICD FastVT DetectionStatus ENABLED [facility] ICD-AMS EPISODES 170 {beats}/min [facility] ICD-ATP Episodes (Vent) 4 [facility] ICD-ATRIALFIBRILLATIO N 77 [facility] ICD-ATRIALTACHYCARDIA 77 [facility] ICD-ATRIALTACHYCARDIA 28 [facility] ICD-ATRIALTACHYCARDIA 22 [facility] ICD-ATRIALTACHYCARDIA 4 [facility] ICD-Device Mfg BSX [facility] ICD-Fast Ventricular Tachycardia 22 [facility] ICD-Fast Ventricular Tachycardia 4 [facility] ICD-Fast Ventricular Tachycardia 0 [facility] ICD-LEADIMPEDANCEATRI AL 847 ohm [facility] ICD-Percent Pacing (Atrial) 0 % [facility] ICD-Percent Pacing (Vent) 81 % [facility] ICD-Shocks Aborted (Vent) 0 [facility] [id number] 0 [facility] ICD-SHOCKSABORTED 0 [facility] ICD-SHOCKSDELIVEREDVE NTRICULAR 0 [facility] ICD-Ventricular Fibrillation 0 [facility] Implant Date 10/18/2017 [facility] Lead Impedance (LV) 991 ohm [facility] Lead Impedance (RV) 548 ohm [facility] Lead Impedance High Voltage 96 ohm [facility] Lead1 Mfg X [facility] Lead2 Mfg X [facility] Lead3 Mfg BSX [facility] Location LV [facility] Location RA [facility] Location RV [facility] Lower Rate (bpm) 60 {beats}/min [facility] LV PACING % 89 % [facility] Max Sensor Rate (bpm) 130 {beats}/min [facility] MDT_PROG_TACHY_ZONE_D ETECTIONS_STATUS ENABLED [facility] Model G247 VIGILANT X4 LAYOUT MAN-D Cl [facility] Model 4671 Acuity X4 Straight C [facility] Model 7841 Ingevity + MRI [facility] Model 0292 [place] Relianc e 4-Site SG [facility] Pacing Mode DDD [facility] Serial Number [id number] [facility] Serial Number [id number] [facility] Serial Number [id number] [facility] Serial Number [id number] [facility] Test Charge Time 9.9 s [facility] Therapy Status (Vent) Enabled [facility] Thresh LV Capture Amplitude (volts) 0.9 V [facility] Thresh LV Capture Duration (ms) 0.5 ms [facility] Thresh RV Capture Amplitude (VOLTS) 0.7 V [facility] Thresh RV Capture Duration (MS) 0.4 ms [facility] Tracking Rate (bpm) 130 {beats}/min [facility] VF Zone Detection Interval 300 ms [facility] VF Zone Therapy Configuration 1 ATP(s) + 8 Shock(s) [facility] No Panel Informationon 09-22 BLANK _ [facility] ICD-ATRIALTACHYCARDIA 0 [facility] Implant Date 03/31/2023 [facility] CNOVon 09-18-2023 CNOV Normal [facility] CNOV Normal [facility] ECHOon 09-18-2023 [facility] LVEF TRANSTHORACIC ECHOon LV Ejection Fraction 20 % Abnormal <52 % [facility] Bilirubin.direct [Mass/Vol]o n 09-15-2023 Bilirubin.conjugated [Mass/Vol] 0.5 mg/dL High 0.0 - 0.4 mg/dL [facility] Interpretation and review of laboratory results Abnormal [facility] CBC Auto Differentialon Basophils (Bld) [#/Vol] 0.08 10*3/uL [facility] Basophils/100 WBC (Bld) 1.0 % [facility] Eosinophils (Bld) [#/Vol] 0.22 10*3/uL [facility] Eosinophils/100 WBC (Bld) 2.7 % [facility] Erythrocyte distribution width (RBC) [Entitic vol] 20.6 % High 11.6 - 14.8 % [facility] Hematocrit (Bld) [Volume fraction] 44.5 % 41.0 - 53.0 % [facility] Hemoglobin (Bld) [Mass/Vol] 13.3 g/dL Low 13.5 - 17.5 g/dL [facility] Immature granulocytes (Bld) [#/Vol] 0.02 10*3/uL [facility] Immature granulocytes/100 WBC (Bld) 0.20 % [facility] Comment on above: The IG parameter is the percentage of metamyelocytes, myelocytes and promyelocytes. An immature granulocyte count (IG) of 1% or more suggests the possibility of infection, an IG count of 3% is very likely related to an infection. Interpretation and review of laboratory results Abnormal [facility] Lymphocytes (Bld) [#/Vol] 1.23 10*3/uL [facility] Lymphocytes/100 WBC (Bld) 14.9 % [facility] MCH (RBC) [Entitic mass] 24.3 pg Low 26.0 - 34.0 pg [facility] MCHC (RBC) [Mass/Vol] 29.9 g/dL Low 31.0 - 37.0 g/dL [facility] MCV (RBC) [Entitic vol] 81.2 fL 80.0 - 100.0 fL [facility] Monocytes (Bld) [#/Vol] 0.96 10*3/uL High [facility] Monocytes/100 WBC (Bld) 11.6 % [facility] Neutrophils (Bld) [#/Vol] 5.77 10*3/uL [facility] Neutrophils/100 WBC (Bld) 69.6 % [facility] Nucleated RBC (Bld) [#/Vol] 0.00 10*3/uL [facility] Nucleated RBC/100 WBC (Bld) [Ratio] 0.0 % [facility] Platelet mean volume (Bld) [Entitic vol] 9.5 fL 9.4 - 12.4 fL [facility] Platelets (Bld) [#/Vol] 266 10*3/uL [facility] RBC (Bld) [#/Vol] 5.48 10*6/uL [facility] WBC (Bld) [#/Vol] 8.28 10*3/uL [facility] Comprehensive metabolic 2000 panelon 09-15-2023 Albumin [Mass/Vol] 3.0 g/dL Low 3.2 - 5.2 g/dL [facility] ALP [Catalytic activity/Vol] 138 U/L 40 - 150 U/L [facility] ALT [Catalytic activity/Vol] 28 U/L 14 - 65 U/L [facility] Anion gap [Moles/Vol] 11 mmol/L 10 - 2 0 mmol/L [facility] AST [Catalytic activity/Vol] 21 U/L 0-50 U/L [facility] Bilirubin [Mass/Vol] 2.2 mg/dL High 0.0 - 1 .3 mg/dL [facility] Calcium [Mass/Vol] 9.4 mg/dL 8.4 - 10. 2 mg/dL [facility] Chloride [Moles/Vol] 103 mmol/L 98 - 10 8 mmol/L [facility] Creatinine [Mass/Vol] 2.45 mg/dL High 0.80 - 1.30 mg/dL [facility] GFR/1.73 sq M.predicted CKD-EPI (S/P/Bld) [Vol rate/Area] 28 Low - PINF [facility] Comment on above: Estimated GFR was ca lculated using the 2020 CKD-EPI creatinine equation. Glucose [Mass/Vol] 122 mg/dL High 65 - 99 mg/dL [facility] HCO3 [Moles/Vol] 28 mmol/L 21 - 32 mmol/L [facility] Potassium [Moles/Vol] 3.9 mmol/L 3.5 - 5.1 mmol/L [facility] Protein [Mass/Vol] 6.9 g/dL 6.0 - 8.0 g/dL [facility] Sodium [Moles/Vol] 138 mmol/L 135 - 145 mmol/L [facility] Urea nitrogen [Mass/Vol] 53 mg/dL High 8 - 25 mg/dL [facility] Urea nitrogen/Creatinine [Mass ratio] 21.6 mg/mg High 10.0 - 20.0 [facility] Services has implemented the eGFR calculation approach that does not have a coefficient for race that conforms to the NKF-ASN Task Force Recommendations. [facility] ECG 12 Leadon 09-15-2023 Atrial Rate 111 BPM [facility] P Norman 110 degrees [facility] Q-T Interval 426 ms [facility] QRS Duration 154 ms [facility] QTC Calculation (Bezet) 587 ms [facility] R Norman -118 degrees [facility] T Norman 62 degrees [facility] Ventricular Rate 114 BPM [facility] th Ventricular-paced [facility] Biventricular pacemaker detected Abnormal ECG Confirmed by Allan Jasso MD ([id number]) on 09/15/2023 11:53:49 AM MUSE [facility] Magnesium Levelon 09-15-2023 Magnesium [Mass/Vol] 2.6 mg/dL High 1.6 - 2 .4 mg/dL [facility] No Panel Informationon 09-15 Interpretation and review of laboratory results Abnormal [facility] Phosphate [Mass/Vol]on 09-15 Interpretation and review of laboratory results Normal [facility] Phosphoruson 09-15-2023 Phosphate [Mass/Vol] 3.4 mg/dL 2.3 - 3 .7 mg/dL [facility] APTT Heparin CoverageOrdered By: Rogerio Mae on 09-14-2023 aPTT Coag (Bld) [Time] 119 s High [facility] Interpretation and review of laboratory results Abnormal [facility] Therapeutic range fo r APTT's is 68 - 104 seconds [facility] APTT Heparin CoverageOrdered By: Stacy Nichols on 09-14-2023 aPTT Coag (Bld) [Time] 59 s High [facility] Interpretation and review of laboratory results Abnormal [facility] Therapeutic range fo r APTT's is 68 - 104 seconds [facility] Bilirubin.direct [Mass/Vol]o n 09-14-2023 Bilirubin.conjugated [Mass/Vol] 0.4 mg/dL 0.0 - 0.4 mg/dL [facility] Interpretation and review of laboratory results Normal [facility] CBC panel Auto (Bld)on 09-14 Erythrocyte distribution width (RBC) [Entitic vol] 20.7 % High 11.6 - 14.8 % [facility] Hematocrit (Bld) [Volume fraction] 44.5 % 41.0 - 53.0 % [facility] Hemoglobin (Bld) [Mass/Vol] 13.7 g/dL 13.5 - 17.5 g/dL [facility] Interpretation and review of laboratory results Abnormal [facility] MCH (RBC) [Entitic mass] 24.9 pg Low 26.0 - 34.0 pg [facility] MCHC (RBC) [Mass/Vol] 30.8 g/dL Low 31.0 - 37.0 g/dL [facility] MCV (RBC) [Entitic vol] 80.8 fL 80.0 - 100.0 fL [facility] Nucleated RBC (Bld) [#/Vol] 0.00 10*3/uL [facility] Nucleated RBC/100 WBC (Bld) [Ratio] 0.0 % [facility] Platelet mean volume (Bld) [Entitic vol] 9.1 fL Low 9.4 - 12.4 fL [facility] Platelets (Bld) [#/Vol] 262 10*3/uL [facility] RBC (Bld) [#/Vol] 5.51 10*6/uL [facility] WBC (Bld) [#/Vol] 9.23 10*3/uL [facility] CTA Abdominal Aorta and Bila teral [...] chronic findings as above. 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 [facility] Lexi Sy MD - 09/14/2023 EXAMINATION: CT ANGIOGRAM ABDOMINAL AORTA WITH LOWER EXTREMITY PROCEDURE: 1. Enhanced CT scan of the abdomen. 2. Enhanced CT scan of the pelvis. 3. Enhanced CT scan of the lower extremities. 4. CTA abdominal aorta. 5. CTA runoff lower extremities. 6. 3-D reconstructions on a separate workstation. HISTORY: 68-year-old with claudication. [place] class V peripheral vascular disease in the [...] chronic findings as above. Workstation ID: [id number] [facility] Radiology Study observation (narrative) [facility] CTA Abdominal Aorta and Bila teral Runoff Vessels W contrast IVOrdered By: Lexi Sy on 09-14-2023 [facility] Work Phone: Comprehensive metabolic 2000 panelon 09-14-2023 Albumin [Mass/Vol] 3.0 g/dL Low 3.2 - 5.2 g/dL [facility] ALP [Catalytic activity/Vol] 154 U/L High 40 - 150 U/L [facility] ALT [Catalytic activity/Vol] 32 U/L 14 - 65 U/L [facility] Anion gap [Moles/Vol] 15 mmol/L 10 - 2 0 mmol/L [facility] AST [Catalytic activity/Vol] 25 U/L 0-50 U/L [facility] Bilirubin [Mass/Vol] 2.4 mg/dL High 0.0 - 1 .3 mg/dL [facility] Calcium [Mass/Vol] 9.2 mg/dL 8.4 - 10. 2 mg/dL [facility] Chloride [Moles/Vol] 100 mmol/L 98 - 10 8 mmol/L [facility] Creatinine [Mass/Vol] 2.42 mg/dL High 0.80 - 1.30 mg/dL [facility] GFR/1.73 sq M.predicted CKD-EPI (S/P/Bld) [Vol rate/Area] 29 Low - PINF [facility] Comment on above: Estimated GFR was ca lculated using the 2020 CKD-EPI creatinine equation. Glucose [Mass/Vol] 175 mg/dL High 65 - 99 mg/dL [facility] HCO3 [Moles/Vol] 24 mmol/L 21 - 32 mmol/L [facility] Interpretation and review of laboratory results Abnormal [facility] Potassium [Moles/Vol] 4.2 mmol/L 3.5 - 5.1 mmol/L [facility] Protein [Mass/Vol] 7.0 g/dL 6.0 - 8.0 g/dL [facility] Sodium [Moles/Vol] 135 mmol/L 135 - 145 mmol/L [facility] Urea nitrogen [Mass/Vol] 53 mg/dL High 8 - 25 mg/dL [facility] Urea nitrogen/Creatinine [Mass ratio] 21.9 mg/mg High 10.0 - 20.0 [facility] has implemented the eGFR calculation approach that does not have a coefficient for race that conforms to the NKF-ASN Task Force Recommendations. [facility] ECHOCARDIOGRAM COMPLETE W CO NTRASTon 09-14-2023 ECHOCARDIOGRAM COMPLETE W CONTRAST Patient Info Name: GREGG FOSTER Age: 68 years : 1955 Gender: Male Ht: 180 cm Wt: 105 kg BSA: 2.33 m2 HR: 113 bpm BP: 119 / 76 mmHg Heart Rhythm: Atrial Fibrillation Technical Quality: Technically difficult Exam Date: 09/14/2023 2:25 PM Patient Status: Inpatient Designer: Shock, Elisha, RDCS, RVT Exam Type: ECHOCARDIOGRAM COMPLETE W CONTRAST Study Info Indications I25.5 - Ischemic cardiomyopathy Referring Physician: EMILIANO Gold; [id number] BMI: 32.36 kg/m2 Summary 1. Enlarged LV [...] Eq Jayme) 1.51 cm2/m2 PV Regurgitation Doppler CO Peak Gradient 10 mmHg CO Peak End Diastolic Ve (more content not included)... Normal [facility] Echocardiogram complete w co ntrastOrdered By: Sadiq Elizondo on 09-14-2023 Aortic valve area 4.48124 cm [facility] Work Phone: AV mean gradient 0.510248 mmHg [facility] Work Phone: AV peak gradient 1.01086 mmHg [facility] Work Phone: EF [phone] % [facility] Work Phone: [facility] Work Phone: Echocardiogram complete w co ntraston 09-14-2023 Patient Info Name: GREGG FOSTER Age: 68 years : 1955 Gender: Male Ht: 180 cm Wt: 105 kg BSA: 2.33 m2 HR: 113 bpm BP: 119 / 76 mmHg Heart Rhythm: Atrial Fibrillation Technical Quality: Technically difficult Exam Date: 09/14/2023 2:25 PM Patient Status: Inpatient Designer: Shock, Elisha, RDCS, RVT Exam Type: ECHOCARDIOGRAM COMPLETE W CONTRAST Study Info Indications I25.5 - Ischemic cardiomyopathy Referring Physician: EMILIANO Gold; [id number] BMI: 32.36 kg/m2 Summary 1. Enlarged LV [...] Doppler RVOT Peak Velocity (more content not included)..Sadiq Lantigua MD - 09/14/2023 Patient Info Name: GREGG FOSTER Age: 68 years : 1955 Gender: Male Ht: 180 cm Wt: 105 kg BSA: 2.33 m2 HR: 113 bpm BP: 119 / 76 mmHg Heart Rhythm: Atrial Fibrillation Technical Quality: Technically difficult Exam Date: 09/14/2023 2:25 PM Patient Status: Inpatient Designer: Shock, Elisha, RDCS, RVT Exam Type: ECHOCARDIOGRAM COMPLETE W CONTRAST Study Info Indications I25.5 - Ischemic cardiomyopathy Referring Physician: EMILIANO Gold; [id number] BMI: 32.36 kg/m2 Summary 1. Enlarged LV [...] Regurgitation Doppler ------- (more content not included)... [facility] Magnesium Levelon 09-14-2023 Magnesium [Mass/Vol] 2.6 mg/dL High 1.6 - 2 .4 mg/dL [facility] Magnesium [Mass/Vol]on 09-14 Interpretation and review of laboratory results Abnormal [facility] Phosphate [Mass/Vol]on 09-14 Interpretation and review of laboratory results Normal [facility] Phosphoruson 09-14-2023 Phosphate [Mass/Vol] 3.1 mg/dL 2.3 - 3 .7 mg/dL [facility] Reflex Lactic Acid, Plasmaon 09-14-2023 Interpretation and review of laboratory results Normal [facility] Lactate [Moles/Vol] 1.8 mmol/L 0.6 - 2. 0 mmol/L [facility] Interpretation and review of laboratory results Abnormal [facility] Lactate [Moles/Vol] 2.1 mmol/L High 0.6 - 2. 0 mmol/L [facility] Interpretation and review of laboratory results Abnormal [facility] Lactate [Moles/Vol] 2.2 mmol/L High 0.6 - 2. 0 mmol/L [facility] US ANKLE/BRACHIAL INDICES EX TREMITY LIMITEDon 09-14-2023 US ANKLE/BRACHIAL INDICES EXTREMITY LIMITED Patient Info Name: GREGG FOSTER Age: 68 years : 1955 Gender: Male Exam Date: 09/14/2023 7:22 AM Patient Status: Inpatient Cloth Winder Machine Operator: Maria De Jesus Majano Referring Physician: SHAHAB BUCKLEY MD; Indications - Gangrene with severe peripheral vascular disease I73.9 - Peripheral vascular disease, unspecified Procedure Description 16803 Limited bilateral noninvasive physiologic studies of upper [...] EVA Eaton DO on 09/14/2023 09:15 AM [facility] US DUPLEX ARTERIAL LEG RIGHT on 09-14-2023 US DUPLEX ARTERIAL LEG RIGHT Patient Info Name: GREGG FOSTER Age: 68 years : 1955 Gender: Male Exam Date: 09/14/2023 7:33 AM Patient Status: Inpatient Cloth Winder Machine Operator: Maria De Jesus Majano, DELMY, RVS Referring Physician: EMILIANO Gold; Indications - Severe peripheral vascular disease with gangrene I73.9 - Peripheral vascular disease, unspecified Procedure Description 68611 Duplex scan of lower extremity arteries or arterial bypass grafts using B-mode, color and spectral Doppler; unilateral or limited study. Conclusions * Right. * Greater than 70% stenosis in the right mid superficial femoral artery. * Segmental occlusions noted in electrical mechanical technician tibial, peroneal and anterior tibial arteries. * Occlusion noted in the right distal anterior tibial artery. * Abnormal, monophasic flow is noted in the popliteal, posterior tibial, peroneal and anterior tibial arteries. Right Measurements Name Value Right PSV Right Distal EIA PSV 65 cm/s Right Mid HVAC ENGINEERING TECHNICIAN PSV 57 cm/s Right Prox Profunda PSV [...] Sandeep A PSV 29 cm/s Right Prox TECHNICAL INTERNSHIP PSV 36 cm/s Right Mid TECHNICAL INTERNSHIP PSV 43 cm/s Right Distal TECHNICAL INTERNSHIP PSV 37 cm/s R FLORENCIO 2.44 Right Measurements Name Value Right EDV Right Distal EIA EDV 15 cm/s Right Mid HVAC ENGINEERING TECHNICIAN EDV 11 cm/s Right Prox Profunda EDV [...] Sandeep A EDV 10 cm/s Right Prox TECHNICAL INTERNSHIP EDV 12 cm/s Right Mid TECHNICAL INTERNSHIP EDV 18 cm/s Right Distal TECHNICAL INTERNSHIP EDV 13 cm/s Right Findings Calcific plaque noted in the right external iliac, common femoral, profunda femoral, superficial femoral, popliteal, posterior tibial, peroneal and anterior tibial arteries. Risk Factors Patient has a history of CKD, hypertension, hyperlipidemia, diabetes and PAD. . Report Signatures Finalized by EVA Eaton DO on 09/14/2023 09:12 AM [facility] US Doppler ankle/brachial in dexon 09-14-2023 Patient Info Name: GREGG FOSTER Age: 68 years : 1955 Gender: Male Exam Date: 09/14/2023 7:22 AM Patient Status: Inpatient Cloth Winder Machine Operator: Maria De Jesus Majano Referring Physician: SHAHAB BUCKLEY MD; Indications - Gangrene with severe peripheral vascular disease I73.9 - Peripheral vascular disease, unspecified Procedure Description 47687 Limited bilateral noninvasive physiologic studies of upper [...] EVA Eaton DO on 09/14/2023 09:15 AM [facility] Alan Cristobal III, DO - 09/14/2023 Patient Info Name: GREGG FOSTER Age: 68 years : 1955 Gender: Male Exam Date: 09/14/2023 7:22 AM Patient Status: Inpatient Cloth Winder Machine Operator: Maria De Jesus Majano Jess Referring Physician: SHAHAB BUCKLEY MD; Indications - Gangrene with severe peripheral vascular disease I73.9 - Peripheral vascular disease, unspecified Procedure Description 88116 Limited bilateral noninvasive physiologic studies of upper [...] EVA Eaton DO on 09/14/2023 09:15 AM [facility] Radiology Study observation (narrative) [facility] US Doppler ankle/brachial in dexOrdered By: Alan Cristobal on 09-14-2023 [facility] Work Phone: Ultrasound duplex arterial l eg righton 09-14-2023 Patient Info Name: GREGG FOSTER Age: 68 years : 1955 Gender: Male Exam Date: 09/14/2023 7:33 AM Patient Status: Inpatient Cloth Winder Machine Operator: Maria De Jesus Majano, RVT, RVS Referring Physician: EMILIANO Gold; Indications - Severe peripheral vascular disease with gangrene I73.9 - Peripheral vascular disease, unspecified Procedure Description 98642 Duplex scan of lower extremity arteries or arterial bypass grafts using B-mode, color and spectral Doppler; unilateral or limited study. Conclusions * Right. * Greater than 70% stenosis in the right mid superficial femoral artery. * Segmental occlusions noted in electrical mechanical technician tibial, peroneal and anterior tibial arteries. * Occlusion noted in the right distal anterior tibial artery. * Abnormal, monophasic flow is noted in the popliteal, posterior tibial, peroneal and anterior tibial arteries. Right Measurements Name Value Right PSV Right Distal EIA PSV 65 cm/s Right Mid HVAC ENGINEERING TECHNICIAN PSV 57 cm/s Right Prox Profunda PSV [...] Sandeep A PSV 29 cm/s Right Prox TECHNICAL INTERNSHIP PSV 36 cm/s Right Mid TECHNICAL INTERNSHIP PSV 43 cm/s Right Distal TECHNICAL INTERNSHIP PSV 37 cm/s R FLORENCIO 2.44 Right Measurements Name Value Right EDV Right Distal EIA EDV 15 cm/s Right Mid HVAC ENGINEERING TECHNICIAN EDV 11 cm/s Right Prox Profunda EDV [...] Sandeep A EDV 10 cm/s Right Prox TECHNICAL INTERNSHIP EDV 12 cm/s Right Mid TECHNICAL INTERNSHIP EDV 18 cm/s Right Distal TECHNICAL INTERNSHIP EDV 13 cm/s Right Findings Calcific plaque noted in the right external iliac, common femoral, profunda femoral, superficial femoral, popliteal, posterior tibial, peroneal and anterior tibial arteries. Risk Factors Patient has a history of CKD, hypertension, hyperlipidemia, diabetes and PAD. . Report Signatures Finalized by EVA Eaton DO on 09/14/2023 09:12 AM [facility] Levar RebeccaLizzette Hampton III, DO - 09/14/2023 Patient Info Name: GREGG FOSTER Age: 68 years : 1955 Gender: Male Exam Date: 09/14/2023 7:33 AM Patient Status: Inpatient Cloth Winder Machine Operator: Maria De Jesus Majano, DELMY, EVERARDO Referring Physician: EMILIANO Gold; Indications - Severe peripheral vascular disease with gangrene I73.9 - Peripheral vascular disease, unspecified Procedure Description 54795 Duplex scan of lower extremity arteries or arterial bypass grafts using B-mode, color and spectral Doppler; unilateral or limited study. Conclusions * Right. * Greater than 70% stenosis in the right mid superficial femoral artery. * Segmental occlusions noted in electrical mechanical technician tibial, peroneal and anterior tibial arteries. * Occlusion noted in the right distal anterior tibial artery. * Abnormal, monophasic flow is noted in the popliteal, posterior tibial, peroneal and anterior tibial arteries. Right Measurements Name Value Right PSV Right Distal EIA PSV 65 cm/s Right Mid HVAC ENGINEERING TECHNICIAN PSV 57 cm/s Right Prox Profunda PSV [...] Sandeep A PSV 29 cm/s Right Prox TECHNICAL INTERNSHIP PSV 36 cm/s Right Mid TECHNICAL INTERNSHIP PSV 43 cm/s Right Distal TECHNICAL INTERNSHIP PSV 37 cm/s R FLORENCIO 2.44 Right Measurements Name Value Right EDV Right Distal EIA EDV 15 cm/s Right Mid HVAC ENGINEERING TECHNICIAN EDV 11 cm/s Right Prox Profunda EDV [...] Sandeep A EDV 10 cm/s Right Prox TECHNICAL INTERNSHIP EDV 12 cm/s Right Mid TECHNICAL INTERNSHIP EDV 18 cm/s Right Distal TECHNICAL INTERNSHIP EDV 13 cm/s Right Findings Calcific plaque noted in the right external iliac, common femoral, profunda femoral, superficial femoral, popliteal, posterior tibial, peroneal and anterior tibial arteries. Risk Factors Patient has a history of CKD, hypertension, hyperlipidemia, diabetes and PAD. . Report Signatures Finalized by EVA Eaton DO on 09/14/2023 09:12 AM [facility] Radiology Study observation (narrative) [facility] Bilirubin.direct [Mass/Vol]o n 09-13-2023 Bilirubin.conjugated [Mass/Vol] 0.6 mg/dL High 0.0 - 0.4 mg/dL [facility] Interpretation and review of laboratory results Abnormal [facility] CBC Auto Differentialon Basophils (Bld) [#/Vol] 0.10 10*3/uL [facility] Basophils/100 WBC (Bld) 0.9 % [facility] Eosinophils (Bld) [#/Vol] 0.14 10*3/uL [facility] Eosinophils/100 WBC (Bld) 1.3 % [facility] Erythrocyte distribution width (RBC) [Entitic vol] 21.0 % High 11.6 - 14.8 % [facility] Hematocrit (Bld) [Volume fraction] 45.3 % 41.0 - 53.0 % [facility] Hemoglobin (Bld) [Mass/Vol] 13.7 g/dL 13.5 - 17.5 g/dL [facility] Immature granulocytes (Bld) [#/Vol] 0.04 10*3/uL [facility] Immature granulocytes/100 WBC (Bld) 0.40 % [facility] Comment on above: The IG parameter is the percentage of metamyelocytes, myelocytes and promyelocytes. An immature granulocyte count (IG) of 1% or more suggests the possibility of infection, an IG count of 3% is very likely related to an infection. Interpretation and review of laboratory results Abnormal [facility] Lymphocytes (Bld) [#/Vol] 1.43 10*3/uL [facility] Lymphocytes/100 WBC (Bld) 13.5 % [facility] MCH (RBC) [Entitic mass] 24.5 pg Low 26.0 - 34.0 pg [facility] MCHC (RBC) [Mass/Vol] 30.2 g/dL Low 31.0 - 37.0 g/dL [facility] MCV (RBC) [Entitic vol] 81.0 fL 80.0 - 100.0 fL [facility] Monocytes (Bld) [#/Vol] 0.99 10*3/uL High [facility] Monocytes/100 WBC (Bld) 9.4 % [facility] Neutrophils (Bld) [#/Vol] 7.88 10*3/uL High [facility] Neutrophils/100 WBC (Bld) 74.5 % [facility] Nucleated RBC (Bld) [#/Vol] 0.00 10*3/uL [facility] Nucleated RBC/100 WBC (Bld) [Ratio] 0.0 % [facility] Platelet mean volume (Bld) [Entitic vol] 9.3 fL Low 9.4 - 12.4 fL [facility] Platelets (Bld) [#/Vol] 269 10*3/uL [facility] RBC (Bld) [#/Vol] 5.59 10*6/uL [facility] WBC (Bld) [#/Vol] 10.58 10*3/uL [facility] CRP, Inflammationon 09-13-19 CRP [Mass/Vol] 17.7 mg/L High NINF - 10.0 mg/L [facility] Comprehensive metabolic 2000 panelon 09-13-2023 Albumin [Mass/Vol] 3.2 g/dL 3.2 - 5.2 g/dL [facility] ALP [Catalytic activity/Vol] 153 U/L High 40 - 150 U/L [facility] ALT [Catalytic activity/Vol] 35 U/L 14 - 65 U/L [facility] Anion gap [Moles/Vol] 12 mmol/L 10 - 2 0 mmol/L [facility] AST [Catalytic activity/Vol] 30 U/L 0-50 U/L [facility] Bilirubin [Mass/Vol] 2.2 mg/dL High 0.0 - 1 .3 mg/dL [facility] Calcium [Mass/Vol] 9.3 mg/dL 8.4 - 10. 2 mg/dL [facility] Chloride [Moles/Vol] 98 mmol/L 98 - 10 8 mmol/L [facility] Creatinine [Mass/Vol] 2.50 mg/dL High 0.80 - 1.30 mg/dL [facility] GFR/1.73 sq M.predicted CKD-EPI (S/P/Bld) [Vol rate/Area] 28 Low - PINF [facility] Comment on above: Estimated GFR was ca lculated using the 2020 CKD-EPI creatinine equation. Glucose [Mass/Vol] 133 mg/dL High 65 - 99 mg/dL [facility] HCO3 [Moles/Vol] 27 mmol/L 21 - 32 mmol/L [facility] Interpretation and review of laboratory results Abnormal [facility] Potassium [Moles/Vol] 4.2 mmol/L 3.5 - 5.1 mmol/L [facility] Protein [Mass/Vol] 7.1 g/dL 6.0 - 8.0 g/dL [facility] Sodium [Moles/Vol] 133 mmol/L Low 135 - 145 mmol/L [facility] Urea nitrogen [Mass/Vol] 50 mg/dL High 8 - 25 mg/dL [facility] Urea nitrogen/Creatinine [Mass ratio] 20.0 mg/mg 10.0 - 20.0 [facility] Laborator y Services has implemented the eGFR calculation approach that does not have a coefficient for race that conforms to the NKF-ASN Task Force Recommendations. [facility] ESR Westergren method (Bld) [Velocity]on 09-13-2023 ESR (Bld) [Velocity] 43 mm/h [facility] Interpretation and review of laboratory results Abnormal [facility] Lactate [Moles/Vol]on 2023 Interpretation and review of laboratory results Abnormal [facility] Lactic Acid, Plasmaon 2023 Lactate [Moles/Vol] 2.8 mmol/L High 0.6 - 2. 0 mmol/L [facility] NT Pro BNPon 09-13-2023 Natriuretic peptide.B prohormone N-Terminal [Mass/Vol] 8873 pg/mL High 0 - 300 pg/mL [facility] Natriuretic peptide.B prohor angelique N-Terminal [Mass/Vol]on 09-13-2023 Pride Study Cut-offs Rule In: < /= 50 Years >450 pg/mL 51 Years - 75 Years >900 pg/mL 76 Years - 99 Years >1800 pg/mL Rule Out: All patients <300 pg/mL [facility] No Panel Informationon 09-13 Interpretation and review of laboratory results Abnormal [facility] Reflex Lactic Acid, Plasmaon 09-13-2023 Interpretation and review of laboratory results Abnormal [facility] Lactate [Moles/Vol] 2.2 mmol/L High 0.6 - 2. 0 mmol/L [facility] US DOPPLER CAROTIDon 024 US DOPPLER CAROTID Patient Info Name: GREGG FOSTER Age: 67 years : 1955 Gender: Male Exam Date: 08/30/2023 1:12 PM Patient Status: Outpatient Cloth Winder Machine Operator: Maria De Jesus Majano, DELMY, CHITOS Referring Physician: SHAHAB BUCKLEY ; Indications I65.21 - Occlusion and stenosis of right carotid artery Procedure Description 15227 Duplex examination using B-mode, color and spectral [...] Stent(s) Measurements Name Value EDV Rt Prox [place] Vessel EDV 7 cm/s Rt Stent Origin EDV 7 cm/s Rt Mid Stent EDV 17 cm/s Rt Distal Stent EDV 13 cm/s Rt Distal [place]essel EDV 15 cm/s Stent(s) Measurements Name Value PSV Rt Prox [place] Vessel PSV 25 cm/s Rt Stent Origin PSV 25 cm/s Rt Mid Stent PSV 40 cm/s Rt Distal Stent PSV 47 cm/s Rt Distal [place]essel PSV 32 cm/s Measurements Name Value [...] MD, RPVI on 08/30/2023 05:45 PM Normal [facility] US DOPPLER CAROTID Patient Info Name: GREGG FOSTER Age: 67 years : 1955 Gender: Male Exam Date: 08/30/2023 1:12 PM Patient Status: Outpatient Cloth Winder Machine Operator: Maria De Jesus Majano, DELMY, RVS Referring Physician: SHAHAB BUCKLEY ; Indications I65.21 - Occlusion and stenosis of right carotid artery Procedure Description 59991 Duplex examination using B-mode, color and spectral [...] Stent(s) Measurements Name Value EDV Rt Prox [place] Vessel EDV 7 cm/s Rt Stent Origin EDV 7 cm/s Rt Mid Stent EDV 17 cm/s Rt Distal Stent EDV 13 cm/s Rt Distal [place]essel EDV 15 cm/s Stent(s) Measurements Name Value PSV Rt Prox [place]essel PSV 25 cm/s Rt Stent Origin PSV 25 cm/s Rt Mid Stent PSV 40 cm/s Rt Distal Stent PSV 47 cm/s Rt Distal [place] PSV 32 cm/s Measurements Name Value [...] MonAug 30, 2023 5:45:51 PM EST Normal [facility] CNOVon 07-12-2023 CNOV Normal [facility] Comprehensive metabolic 2000 panelon 07-12-2023 Albumin [Mass/Vol] 3.9 g/dL Normal 3.9-4.9 [facility] Comment on above: Order Comment: Speci men Type: BLOOD SPECIMENOrdering Facility: [facility] Address: [address] [place] [address] Performed By: #### 2 4323-8, 77081-9, 27136-1 ####[facility] LABCLIA [id number] [place] [address] [place] ALP [Catalytic activity/Vol] 182 U/L High 38-113 [facility] Comment on above: Order Comment: Speci men Type: BLOOD SPECIMENOrdering Facility: [facility] Address: [address] [place] [address] Performed By: #### 2 4323-8, 86868-2, 18021-4 ####[facility] LABCLIA [id number] [place] [address] [place] ALT [Catalytic activity/Vol] 47 U/L Normal 10-54 [facility] Comment on above: Order Comment: Speci men Type: BLOOD SPECIMENOrdering Facility: [facility] Address: [address] [place] [address] Performed By: #### 2 4323-8, 62736-2, 22658-7 ####[facility] LABCLIA [id number] [place] [address] [place] Anion gap [Moles/Vol] 12 mmol/L Normal 9-18 [facility] Comment on above: Order Comment: Speci men Type: BLOOD SPECIMENOrdering Facility: [facility] Address: [address] [place] [address] Performed By: #### 2 4323-8, 27594-7, 36706-2 ####[facility] LABCLIA [id number] [place] [address] [place] AST [Catalytic activity/Vol] 32 U/L Normal 14-40 [facility] Comment on above: Order Comment: Speci men Type: BLOOD SPECIMENOrdering Facility: [facility] Address: [address] [place] [address] Performed By: #### 2 4323-8, 80131-2, 30590-2 ####[facility] LABCLIA [id number] [place] [address] [place] Bilirubin [Mass/Vol] 1.2 mg/dL Normal 0.2-1.3 [facility] Comment on above: Order Comment: Speci men Type: BLOOD SPECIMENOrdering Facility: [facility] Address: [address] [place] [address] Performed By: #### 2 4323-8, 76586-4, 69597-0 ####[facility] LABCLIA [id number] [place] [id number] [place] Calcium [Mass/Vol] 9.8 mg/dL Normal 8.5-10.2 [facility] Comment on above: Order Comment: Speci men Type: BLOOD SPECIMENOrdering Facility: [facility] Address: [address] [place] [address] Performed By: #### 2 4323-8, 39405-3, 30078-5 ####[facility] LABCLIA [id number] [place] [id number] [place] Chloride [Moles/Vol] 98 mmol/L Normal 97-105 [facility] Comment on above: Order Comment: Speci men Type: BLOOD SPECIMENOrdering Facility: [facility] Address: [address] [place] [address] Performed By: #### 2 4323-8, , 50792-7 ####[facility] LABCLIA [id number] [place] [address] [place] CO2 [Moles/Vol] 29 mmol/L Normal 22-30 [facility] Comment on above: Order Comment: Speci men Type: BLOOD SPECIMENOrdering Facility: [facility] Address: [address] [place] [address] Performed By: #### 2 4323-8, , 45315-4 ####[facility] LABCLIA [id number] [place] [id number] [place] Creatinine [Mass/Vol] 1.95 mg/dL High 0.73-1.22 [facility] Comment on above: Order Comment: Speci men Type: BLOOD SPECIMENOrdering Facility: [facility] Address: [address] [place] [address] Performed By: #### 2 4323-8, 15169-8, 09439-4 ####[facility] LABCLIA [id number] [address] [address] [place] Creatinine and Glomerular filtration rate.predicted panel (S/P/Bld) 37 mL/min/1.73m??? Low >=60 [facility] Comment on above: Order Comment: Joseline clemons Type: BLOOD SPECIMENOrdering Facility: [facility] Address: [address] [place] [address] Result Comment: Syl mated Glomerular Filtration Rate [...] actual GFR. Performed By: #### 2 4323-8, 55623-1, 96357-3 ####[facility] LABIA [id number] [place] [address] [place] Glucose [Mass/Vol] 177 mg/dL High 74-99 [facility] Comment on above: Order Comment: Joseline clemons Type: BLOOD SPECIMENOrdering Facility: [facility] Address: [address] [place] [address] Result Comment: The [place] [employer] (ADA) provides guidance for cutoff [...] Standards of Medical Care in Diabetes 2016, [place] [employer]. Diabetes Care. 2016.39(Suppl 1). Performed By: #### 2 4323-8, 63596-4, 09984-5 ####[facility] LABIA [id number] [place] [id number] [place] Potassium [Moles/Vol] 3.9 mmol/L Normal 3.7-5.1 [facility] Comment on above: Order Comment: Joseline clemons Type: BLOOD SPECIMENOrdering Facility: [facility] Address: [address] [place] [address] Performed By: #### 2 4323-8, 81429-9, 69288-4 ####[facility] LABCLIA [id number] [place] [id number] [place] Protein [Mass/Vol] 7.5 g/dL Normal 6.3-8.0 [facility] Comment on above: Order Comment: Speci men Type: BLOOD SPECIMENOrdering Facility: [facility] Address: [address] [place] [address] Performed By: #### 2 4323-8, 04969-3, 48526-1 ####[facility] LABCLIA [id number] [place] [address] [place] Sodium [Moles/Vol] 139 mmol/L Normal 136-144 [facility] Comment on above: Order Comment: Speci men Type: BLOOD SPECIMENOrdering Facility: [facility] Address: [address] [place] [address] Performed By: #### 2 4323-8, 25059-1, 39634-5 ####[facility] LABIA [id number] [place] [address] [place] Urea nitrogen [Mass/Vol] 47 mg/dL High 9-24 [facility] Comment on above: Order Comment: Speci men Type: BLOOD SPECIMENOrdering Facility: [facility] Address: [address] [place] [address] Performed By: #### 2 4323-8, 83957-1, 99234-9 ####[facility] LABIA [id number] [address] [address] [place] Magnesium SerPl-mCncon 07-12 Magnesium [Mass/Vol] 2.4 mg/dL High 1.7-2.3 [facility] Comment on above: Order Comment: Speci men Type: BLOOD SPECIMENOrdering Facility: [facility] Address: [address] [place], [place] [address] Performed By: #### 2 4323-8, 64298-5, 20873-4 ####[facility] LABIA [id number] [address] [address] [place] NT-proBNP [facility] 07-12 Natriuretic peptide.B prohormone N-Terminal [Mass/Vol] 4783 pg/mL High <125 [facility] Comment on above: Order Comment: Speci men Type: BLOOD SPECIMENOrdering Facility: [facility] Address: [address] [place] [place] [id number] Performed By: #### 2 4323-8, 13201-8, 33348-0 ####[facility] [facility] [id number] [address] [address] [place] ICD REMOTE CHECKon 3 AV Delay Adaptive Paced Minimum (ms) 140 ms [facility] AV Delay Adaptive Sensed Minimum (ms) 100 ms [facility] Federico LV Pacing Amplitude (volts) 2.3 V [facility] Federico LV Pacing Pulse Width (ms) 0.5 ms [facility] federico LV Sensing Amplitude (mvolts) 1.0 mV [facility] Federico RA Pacing Amplitude (volts) 2.0 V [facility] Federico RA Pacing Polarity BI [facility] Federico RA Pacing Pulse Width (ms) 0.4 ms [facility] Federico RA Sensing Amplitude (mvolts) 0.25 mV [facility] Federico RA Sensing Polarity BI [facility] Federico RV Pacing Amplitude (volts) 2.0 V [facility] Federico RV Pacing Polarity BI [facility] Federico RV Pacing Pulse Width (ms) 0.4 ms [facility] Federico RV Sensing Amplitude (mvolts) 0.3 mV [facility] Federico RV Sensing Polarity BI [facility] Detection Configuration (Vent) 2 - Zone [facility] FastVT_Detection Interval 300 ms [facility] FastVT_Therapy Configuration 1 ATP(s) + 8 Shock(s) [facility] ICD FastVT DetectionStatus ENABLED [facility] ICD-AMS EPISODES 170 {beats}/min [facility] ICD-ATP Episodes (Vent) 0 [facility] ICD-ATRIALFIBRILLATIO N 7 [facility] ICD-ATRIALTACHYCARDIA 7 [facility] ICD-Device Mfg BSX [facility] ICD-LEADIMPEDANCEATRI AL 821 ohm [facility] ICD-Percent Pacing (Atrial) 0 % [facility] ICD-Percent Pacing (Vent) 64 % [facility] ICD-Shocks Aborted (Vent) 0 [facility] [id number] 0 [facility] ICD-SHOCKSABORTED 0 [facility] ICD-SHOCKSDELIVEREDVE NTRICULAR 0 [facility] ICD-Ventricular Fibrillation 0 [facility] Implant Date 10/18/2017 [facility] Lead Impedance (LV) 1064 ohm [facility] Lead Impedance (RV) 602 ohm [facility] Lead Impedance High Voltage 96 ohm [facility] Lead1 Mfg BSX [facility] Lead2 Mfg BSX [facility] Lead3 Mfg BSX [facility] Location LV [facility] Location RA [facility] Location RV [facility] Lower Rate (bpm) 60 {beats}/min [facility] LV PACING % 92 % [facility] Max Sensor Rate (bpm) 130 {beats}/min [facility] MDT_PROG_TACHY_ZONE_D ETECTIONS_STATUS ENABLED [facility] Model G247 VIGILANT X4 LAYOUT MAN-D Cl [facility] Model 4671 Acuity X4 Straight C [facility] Model 7841 Ingevity + MRI [facility] Model 0292 [employer] Relianc e 4-Site SG [facility] Pacing Mode DDD [facility] Serial Number [id number] [facility] Serial Number [id number] [facility] Serial Number [id number] [facility] Serial Number [id number] [facility] Test Charge Time 9.9 s [facility] Therapy Status (Vent) Enabled [facility] Thresh LV Capture Amplitude (volts) 1.1 V [facility] Thresh LV Capture Duration (ms) 0.5 ms [facility] Thresh RV Capture Amplitude (VOLTS) 0.6 V [facility] Thresh RV Capture Duration (MS) 0.4 ms [facility] Tracking Rate (bpm) 130 {beats}/min [facility] VF Zone Detection Interval 300 ms [facility] VF Zone Therapy Configuration 1 ATP(s) + 8 Shock(s) [facility] No Panel Informationon 07-04 BLANK _ [facility] ICD-ATRIALTACHYCARDIA 0 [facility] ICD-Fast Ventricular Tachycardia 0 [facility] Implant Date 03/31/2023 [facility] CNNURSEon 06-27-2023 CNNURSE Normal [facility] CNOVon 06-27-2023 CNOV Normal [facility] ANES POSTPROC EVALon 023 ANES POSTPROC EVAL Normal [facility] ANES PRE-OPon 06-16-2023 ANES PRE-OP Normal [facility] Basic metabolic 2000 panelon 06-16-2023 Anion gap [Moles/Vol] 14 mmol/L Normal 9-18 [facility] Comment on above: Order Comment: Speci men Type: BLOOD SPECIMENOrdering Facility: [facility] Address: [address] [place] [address] Performed By: #### 2 4321-2 ####[facility] LABCLIA [id number] [place] [address] [place] Calcium [Mass/Vol] 10.2 mg/dL Normal 8.5-10.2 [facility] Comment on above: Order Comment: Speci men Type: BLOOD SPECIMENOrdering Facility: [facility] Address: [address] [place] [address] Performed By: #### 2 4321-2 ####[facility] LABCLIA [id number] [place] [address] [place] Chloride [Moles/Vol] 98 mmol/L Normal 97-105 [facility] Comment on above: Order Comment: Speci men Type: BLOOD SPECIMENOrdering Facility: [facility] Address: [address] [place] [address] Performed By: #### 2 4321-2 ####[facility] LABCLIA [id number] [place] [address] [place] CO2 [Moles/Vol] 25 mmol/L Normal 22-30 [facility] Comment on above: Order Comment: Speci men Type: BLOOD SPECIMENOrdering Facility: [facility] Address: [address] [place] [address] Performed By: #### 2 4321-2 ####[facility] LABCLIA [id number] [place] [address] [place] Creatinine [Mass/Vol] 2.00 mg/dL High 0.73-1.22 [facility] Comment on above: Order Comment: Speci men Type: BLOOD SPECIMENOrdering Facility: [facility] Address: [address] [place] [address] Performed By: #### 2 4321-2 ####[facility]CLIA [id number] [place] [address] [place] Creatinine and Glomerular filtration rate.predicted panel (S/P/Bld) 36 mL/min/1.73m??? Low >=60 [facility] Comment on above: Order Comment: Speci men Type: BLOOD SPECIMENOrdering Facility: [facility] Address: [address] [place] [address] Result Comment: Syl mated Glomerular Filtration Rate [...] actual GFR. Performed By: #### 2 4321-2 ####[facility] LABCLIA [id number] [place] [address] [place] Glucose [Mass/Vol] 216 mg/dL High 74-99 [facility] Comment on above: Order Comment: Speci men Type: BLOOD SPECIMENOrdering Facility: [facility] Address: [address] [place] [address] Result Comment: The [place] [employer] (ADA) provides guidance for cutoff [...] Standards of Medical Care in Diabetes 2016, [place] [employer]. Diabetes Care. 2016.39(Suppl 1). Performed By: #### 2 4321-2 ####[facility] LABCLIA [id number] [place] [address] [place] Potassium [Moles/Vol] 4.3 mmol/L Normal 3.7-5.1 [facility] Comment on above: Order Comment: Speci men Type: BLOOD SPECIMENOrdering Facility: [facility] Address: [address] [place] [address] Performed By: #### 2 4321-2 ####[facility] LABIA [id number] [place] [address] [place] Sodium [Moles/Vol] 137 mmol/L Normal 136-144 [facility] Comment on above: Order Comment: Reneei kaci Type: BLOOD SPECIMENOrdering Facility: [facility] Address: [address] [place] [address] Performed By: #### 2 4321-2 ####[facility] LABIA [id number] [place] [address] [place] Urea nitrogen [Mass/Vol] 59 mg/dL High 9-24 [facility] Comment on above: Order Comment: Speci men Type: BLOOD SPECIMENOrdering Facility: [facility] Address: [address] [place] [address] Performed By: #### 2 4321-2 ####[facility]IA [id number] [place] [address] [place] CNOVon 06-16-2023 CNOV Normal [facility] ECG COMPLETEon 06-16-2023 ECG COMPLETE Normal [facility] ECG COMPLETE Normal [facility] HISTORY PHYSICALon 3 HISTORY PHYSICAL Normal [facility] ICD CLINIC CHECKon 3 AV Delay Adaptive Paced Minimum (ms) 140 ms [facility] AV Delay Adaptive Sensed Minimum (ms) 100 ms [facility] Federico LV Pacing Amplitude (volts) 2.3 V [facility] Federico LV Pacing Pulse Width (ms) 0.5 ms [facility] federico LV Sensing Amplitude (mvolts) 1.0 mV [facility] Federico RA Pacing Amplitude (volts) 5.0 V [facility] Federico RA Pacing Polarity BI [facility] Federico RA Pacing Pulse Width (ms) 0.4 ms [facility] Federico RA Sensing Amplitude (mvolts) 0.25 mV [facility] Federico RA Sensing Polarity BI [facility] Federico RV Pacing Amplitude (volts) 2.0 V [facility] Federico RV Pacing Polarity BI [facility] Federico RV Pacing Pulse Width (ms) 0.4 ms [facility] Federico RV Sensing Amplitude (mvolts) 0.3 mV [facility] Federico RV Sensing Polarity BI [facility] Detection Configuration (Vent) 2 - Zone [facility] FastVT_Detection Interval 300 ms [facility] FastVT_Therapy Configuration 1 ATP(s) + 8 Shock(s) [facility] ICD FastVT DetectionStatus ENABLED [facility] ICD-AMS EPISODES 170 {beats}/min [facility] ICD-ATP Episodes (Vent) 0 [facility] ICD-ATRIALFIBRILLATIO N 3 [facility] ICD-Device Mfg BSX [facility] ICD-Fast Ventricular Tachycardia 1 [facility] ICD-LEADIMPEDANCEATRI AL 838 ohm [facility] ICD-Percent Pacing (Atrial) 0 % [facility] ICD-Percent Pacing (Vent) 83 % [facility] ICD-Shocks Aborted (Vent) 0 [facility] [id number] [facility] ICD-SHOCKSABORTED 0 [facility] ICD-SHOCKSDELIVEREDVE NTRICULAR 0 [facility] ICD-Ventricular Fibrillation 0 [facility] Implant Date 10/18/2017 [facility] Lead Impedance (LV) 1043 ohm [facility] Lead Impedance (RV) 566 ohm [facility] Lead Impedance High Voltage 87 ohm [facility] Lead1 Mfg BSX [facility] Lead2 Mfg BSX [facility] Lead3 Mfg BSX [facility] Location LV [facility] Location RA [facility] Location RV [facility] Lower Rate (bpm) 60 {beats}/min [facility] LV PACING % 92 % [facility] Max Sensor Rate (bpm) 130 {beats}/min [facility] MDT_PROG_TACHY_ZONE_D ETECTIONS_STATUS ENABLED [facility] Model G247 VIGILANT X4 LAYOUT MAN-D Cl [facility] Model 4671 Acuity X4 Straight C [facility] Model 7841 Ingevity + MRI [facility] Model 0292 [employer] Relianc e 4-Site SG [facility] Pacing Mode DDD [facility] Serial Number [id number] [facility] Serial Number [id number] [facility] Serial Number [id number] [facility] Serial Number [id number] [facility] Test Charge Time 9.9 s [facility] Therapy Status (Vent) Enabled [facility] Thresh LV Capture Amplitude (volts) 1.1 V [facility] Thresh LV Capture Duration (ms) 0.5 ms [facility] Thresh RV Capture Amplitude (VOLTS) 0.7 V [facility] Thresh RV Capture Duration (MS) 0.4 ms [facility] Tracking Rate (bpm) 130 {beats}/min [facility] VF Zone Detection Interval 300 ms [facility] VF Zone Therapy Configuration 1 ATP(s) + 8 Shock(s) [facility] No Panel Informationon 06-16 BLANK _ [facility] ICD-Fast Ventricular Tachycardia 0 [facility] Implant Date 03/31/2023 [facility] CNCNPATEDon 06-15-2023 CNCNPATED Normal [facility] ICD REMOTE CHECKon 3 AV Delay Adaptive Paced Minimum (ms) 140 ms [facility] AV Delay Adaptive Sensed Minimum (ms) 100 ms [facility] Federico LV Pacing Amplitude (volts) 2.3 V [facility] Federico LV Pacing Pulse Width (ms) 0.5 ms [facility] federico LV Sensing Amplitude (mvolts) 1.0 mV [facility] Federico RA Pacing Amplitude (volts) 5.0 V [facility] Federico RA Pacing Polarity BI [facility] Federico RA Pacing Pulse Width (ms) 0.4 ms [facility] Federico RA Sensing Amplitude (mvolts) 0.25 mV [facility] Federico RA Sensing Polarity BI [facility] Federico RV Pacing Amplitude (volts) 2.0 V [facility] Federico RV Pacing Polarity BI [facility] Federico RV Pacing Pulse Width (ms) 0.4 ms [facility] Federico RV Sensing Amplitude (mvolts) 0.3 mV [facility] Federico RV Sensing Polarity BI [facility] Detection Configuration (Vent) 2 - Zone [facility] FastVT_Detection Interval 300 ms [facility] FastVT_Therapy Configuration 1 ATP(s) + 8 Shock(s) [facility] ICD FastVT DetectionStatus ENABLED [facility] ICD-AMS EPISODES 170 {beats}/min [facility] ICD-ATP Episodes (Vent) 0 [facility] ICD-ATRIALFIBRILLATIO N 3 [facility] ICD-ATRIALTACHYCARDIA 3 [facility] ICD-Device Mfg BSX [facility] ICD-Fast Ventricular Tachycardia 1 [facility] ICD-LEADIMPEDANCEATRI AL 800 ohm [facility] ICD-Percent Pacing (Atrial) 0 % [facility] ICD-Percent Pacing (Vent) 83 % [facility] ICD-Shocks Aborted (Vent) 0 [facility] [id number] 0 [facility] ICD-SHOCKSABORTED 0 [facility] ICD-SHOCKSDELIVEREDVE NTRICULAR 0 [facility] ICD-Ventricular Fibrillation 0 [facility] Implant Date 10/18/2017 [facility] Lead Impedance (LV) 1029 ohm [facility] Lead Impedance (RV) 551 ohm [facility] Lead Impedance High Voltage 81 ohm [facility] Lead1 Mfg X [facility] Lead2 Mfg X [facility] Lead3 Mfg BSX [facility] Location LV [facility] Location RA [facility] Location RV [facility] Lower Rate (bpm) 60 {beats}/min [facility] LV PACING % 93 % [facility] Max Sensor Rate (bpm) 130 {beats}/min [facility] MDT_PROG_TACHY_ZONE_D ETECTIONS_STATUS ENABLED [facility] Model G247 VIGILANT X4 LAYOUT MAN-D Cl [facility] Model 4671 Acuity X4 Straight C [facility] Model 7841 Ingevity + MRI [facility] Model 0292 [employer] Relianc e 4-Site SG [facility] Pacing Mode DDD [facility] Serial Number [id number] [facility] Serial Number [id number] [facility] Serial Number [id number] [facility] Serial Number [id number] [facility] Test Charge Time 9.9 s [facility] Therapy Status (Vent) Enabled [facility] Thresh LV Capture Amplitude (volts) 1.1 V [facility] Thresh LV Capture Duration (ms) 0.5 ms [facility] Thresh RV Capture Amplitude (VOLTS) 0.7 V [facility] Thresh RV Capture Duration (MS) 0.4 ms [facility] Tracking Rate (bpm) 130 {beats}/min [facility] VF Zone Detection Interval 300 ms [facility] VF Zone Therapy Configuration 1 ATP(s) + 8 Shock(s) [facility] No Panel Informationon 06-12 BLANK _ [facility] ICD-ATRIALTACHYCARDIA 1 [facility] ICD-ATRIALTACHYCARDIA 0 [facility] ICD-Fast Ventricular Tachycardia 0 [facility] Implant Date 03/31/2023 [facility] CNPNon 06-07-2023 CNPN Normal [facility] ICD REMOTE CHECKon AV Delay Adaptive Paced Minimum (ms) 140 ms [facility] AV Delay Adaptive Sensed Minimum (ms) 100 ms [facility] Federico LV Pacing Amplitude (volts) 2.3 V [facility] Federico LV Pacing Pulse Width (ms) 0.5 ms [facility] federico LV Sensing Amplitude (mvolts) 1.0 mV [facility] Federico RA Pacing Amplitude (volts) 5.0 V [facility] Federico RA Pacing Polarity BI [facility] Federico RA Pacing Pulse Width (ms) 0.4 ms [facility] Federico RA Sensing Amplitude (mvolts) 0.25 mV [facility] Federico RA Sensing Polarity BI [facility] Federico RV Pacing Amplitude (volts) 2.0 V [facility] Federico RV Pacing Polarity BI [facility] Federico RV Pacing Pulse Width (ms) 0.4 ms [facility] Federico RV Sensing Amplitude (mvolts) 0.3 mV [facility] Federico RV Sensing Polarity BI [facility] Detection Configuration (Vent) 2 - Zone [facility] FastVT_Detection Interval 300 ms [facility] FastVT_Therapy Configuration 1 ATP(s) + 8 Shock(s) [facility] ICD FastVT DetectionStatus ENABLED [facility] ICD-AMS EPISODES 170 {beats}/min [facility] ICD-ATP Episodes (Vent) 0 [facility] ICD-ATRIALFIBRILLATIO N 3 [facility] ICD-ATRIALTACHYCARDIA 3 [facility] ICD-Device Mfg BSX [facility] ICD-Fast Ventricular Tachycardia 1 [facility] ICD-LEADIMPEDANCEATRI AL 765 ohm [facility] ICD-Percent Pacing (Atrial) 0 % [facility] ICD-Percent Pacing (Vent) 83 % [facility] ICD-Shocks Aborted (Vent) 0 [facility] [id number] 0 [facility] ICD-SHOCKSABORTED 0 [facility] ICD-SHOCKSDELIVEREDVE NTRICULAR 0 [facility] ICD-Ventricular Fibrillation 0 [facility] Implant Date 10/18/2017 [facility] Lead Impedance (LV) 966 ohm [facility] Lead Impedance (RV) 554 ohm [facility] Lead Impedance High Voltage 81 ohm [facility] Lead1 Mfg BSX [facility] Lead2 Mfg BSX [facility] Lead3 Mfg BSX [facility] Location LV [facility] Location RA [facility] Location RV [facility] Lower Rate (bpm) 60 {beats}/min [facility] LV PACING % 94 % [facility] Max Sensor Rate (bpm) 130 {beats}/min [facility] MDT_PROG_TACHY_ZONE_D ETECTIONS_STATUS ENABLED [facility] Model G247 VIGILANT X4 LAYOUT MAN-D Cl [facility] Model 4671 Acuity X4 Straight C [facility] Model 7841 Ingevity + MRI [facility] Model 0292 [employer] Relianc e 4-Site SG [facility] Pacing Mode DDD [facility] Serial Number [id number] [facility] Serial Number [id number] [facility] Serial Number [id number] [facility] Serial Number [id number] [facility] Test Charge Time 9.9 s [facility] Therapy Status (Vent) Enabled [facility] Thresh LV Capture Amplitude (volts) 1.0 V [facility] Thresh LV Capture Duration (ms) 0.5 ms [facility] Thresh RV Capture Amplitude (VOLTS) 0.7 V [facility] Thresh RV Capture Duration (MS) 0.4 ms [facility] Tracking Rate (bpm) 130 {beats}/min [facility] VF Zone Detection Interval 300 ms [facility] VF Zone Therapy Configuration 1 ATP(s) + 8 Shock(s) [facility] No Panel Informationon 06-05 BLANK _ [facility] ICD-ATRIALTACHYCARDIA 1 [facility] ICD-ATRIALTACHYCARDIA 0 [facility] ICD-Fast Ventricular Tachycardia 0 [facility] Implant Date 03/31/2023 [facility] CNPNon 05-24-2023 CNPN Normal [facility] ICD REMOTE CHECKon AV Delay Adaptive Paced Minimum (ms) 140 ms [facility] AV Delay Adaptive Sensed Minimum (ms) 100 ms [facility] Federico LV Pacing Amplitude (volts) 2.3 V [facility] Federico LV Pacing Pulse Width (ms) 0.5 ms [facility] federico LV Sensing Amplitude (mvolts) 1.0 mV [facility] Federico RA Pacing Amplitude (volts) 5.0 V [facility] Federico RA Pacing Polarity BI [facility] Federico RA Pacing Pulse Width (ms) 0.4 ms [facility] Federico RA Sensing Amplitude (mvolts) 0.25 mV [facility] Federico RA Sensing Polarity BI [facility] Federico RV Pacing Amplitude (volts) 2.0 V [facility] Federico RV Pacing Polarity BI [facility] Fdeerico RV Pacing Pulse Width (ms) 0.4 ms [facility] Federico RV Sensing Amplitude (mvolts) 0.3 mV [facility] Federico RV Sensing Polarity BI [facility] Detection Configuration (Vent) 2 - Zone [facility] FastVT_Detection Interval 300 ms [facility] FastVT_Therapy Configuration 1 ATP(s) + 8 Shock(s) [facility] ICD FastVT DetectionStatus ENABLED [facility] ICD-AMS EPISODES 170 {beats}/min [facility] ICD-ATP Episodes (Vent) 0 [facility] ICD-ATRIALFIBRILLATIO N 1 [facility] ICD-Device Mfg BSX [facility] ICD-LEADIMPEDANCEATRI AL 804 ohm [facility] ICD-Percent Pacing (Atrial) 0 % [facility] ICD-Percent Pacing (Vent) 83 % [facility] ICD-Shocks Aborted (Vent) 0 [facility] [id number] 0 [facility] ICD-SHOCKSABORTED 0 [facility] ICD-SHOCKSDELIVEREDVE NTRICULAR 0 [facility] ICD-Ventricular Fibrillation 0 [facility] Implant Date 10/18/2017 [facility] Lead Impedance (LV) 1060 ohm [facility] Lead Impedance (RV) 529 ohm [facility] Lead Impedance High Voltage 84 ohm [facility] Lead1 Mfg BSX [facility] Lead2 Mfg BSX [facility] Lead3 Mfg BSX [facility] Location LV [facility] Location RA [facility] Location RV [facility] Lower Rate (bpm) 60 {beats}/min [facility] LV PACING % 93 % [facility] Max Sensor Rate (bpm) 130 {beats}/min [facility] MDT_PROG_TACHY_ZONE_D ETECTIONS_STATUS ENABLED [facility] Model G247 VIGILANT X4 LAYOUT MAN-D Cl [facility] Model 4671 Acuity X4 Straight C [facility] Model 7841 Ingevity + MRI [facility] Model 0292 [employer] Relianc e 4-Site SG [facility] Pacing Mode DDD [facility] Serial Number [id number] [facility] Serial Number [id number] [facility] Serial Number [id number] [facility] Serial Number [id number] [facility] Test Charge Time 9.9 s [facility] Therapy Status (Vent) Enabled [facility] Thresh LV Capture Amplitude (volts) 1.3 V [facility] Thresh LV Capture Duration (ms) 0.5 ms [facility] Thresh RV Capture Amplitude (VOLTS) 0.7 V [facility] Thresh RV Capture Duration (MS) 0.4 ms [facility] Tracking Rate (bpm) 130 {beats}/min [facility] VF Zone Detection Interval 300 ms [facility] VF Zone Therapy Configuration 1 ATP(s) + 8 Shock(s) [facility] No Panel Informationon 05-19 BLANK _ [facility] ICD-ATRIALTACHYCARDIA 1 [facility] ICD-ATRIALTACHYCARDIA 0 [facility] ICD-Fast Ventricular Tachycardia 0 [facility] Normal [facility] ICD CLINIC CHECKon AV Delay Adaptive Paced Minimum (ms) 140 ms [facility] AV Delay Adaptive Sensed Minimum (ms) 100 ms [facility] Federico LV Pacing Amplitude (volts) 2.3 V [facility] Federico LV Pacing Pulse Width (ms) 0.5 ms [facility] federico LV Sensing Amplitude (mvolts) 1.0 mV [facility] Federico RA Pacing Amplitude (volts) 5.0 V [facility] Federico RA Pacing Polarity BI [facility] Federico RA Pacing Pulse Width (ms) 0.4 ms [facility] Federico RA Sensing Amplitude (mvolts) 0.25 mV [facility] Federico RA Sensing Polarity BI [facility] Federico RV Pacing Amplitude (volts) 2.0 V [facility] Federico RV Pacing Polarity BI [facility] Federico RV Pacing Pulse Width (ms) 0.4 ms [facility]ico RV Sensing Amplitude (mvolts) 0.3 mV [facility] Federico RV Sensing Polarity BI [facility] Detection Configuration (Vent) 2 - Zone [facility] FastVT_Detection Interval 300 ms [facility] FastVT_Therapy Configuration 1 ATP(s) + 8 Shock(s) [facility] ICD FastVT DetectionStatus ENABLED [facility] ICD-AMS EPISODES 170 {beats}/min [facility] ICD-ATP Episodes (Vent) 0 [facility] ICD-ATRIALFIBRILLATIO N 6 [facility] ICD-Device Mfg BSX [facility] ICD-LEADIMPEDANCEATRI AL 816 ohm [facility] ICD-Percent Pacing (Atrial) 0 % [facility] ICD-Percent Pacing (Vent) 52 % [facility] ICD-Rhythm Atrial Fibrillation [facility] ICD-Shocks Aborted (Vent) 0 [facility] CHG-ZMPTUI-RHUIIPTRV 0 [facility] ICD-SHOCKSABORTED 0 [facility] ICD-SHOCKSDELIVEREDVE NTRICULAR 0 [facility] ICD-Ventricular Fibrillation 0 [facility] Implant Date 10/18/2017 [facility] Lead Impedance (LV) 1029 ohm [facility] Lead Impedance (RV) 532 ohm [facility] Lead Impedance High Voltage 91 ohm [facility] Lead1 Mfg X [facility] Lead2 Mfg X [facility] Lead3 Mfg BSX [facility] Location LV [facility] Location RA [facility] Location RV [facility] Lower Rate (bpm) 60 {beats}/min [facility] LV PACING % 91 % [facility] Max Sensor Rate (bpm) 130 {beats}/min [facility] MDT_PROG_TACHY_ZONE_D ETECTIONS_STATUS ENABLED [facility] Model G247 VIGILANT X4 LAYOUT MAN-D Cl [facility] Model 4671 Acuity X4 Straight C [facility] Model 7841 Ingevity + MRI [facility] Model 0292 [place]otak Relianc e 4-Site SG [facility] Pacemaker Dependent? NO [facility] Pacing Mode DDD [facility] Serial Number [id number] [facility] Serial Number [id number] [facility] Serial Number [id number] [facility] Serial Number [id number] [facility] Test Charge Time 9.9 s [facility] Therapy Status (Vent) Enabled [facility] Thresh LV Capture Amplitude (volts) 1.1 V [facility] Thresh LV Capture Duration (ms) 1.0 ms [facility] Thresh RA Capture Amplitude (volts) 0.6 V [facility] Thresh RA Capture Duration (ms) 0.4 ms [facility] Thresh RA Sensing Amplitude (mvolts) 3 mV [facility] Thresh RV Capture Amplitude (VOLTS) 0.7 V [facility] Thresh RV Capture Duration (MS) 0.4 ms [facility] Thresh RV Sensing Amplitude (MVOLTS) 13.9 mV [facility] Tracking Rate (bpm) 130 {beats}/min [facility] VF Zone Detection Interval 300 ms [facility] VF Zone Therapy Configuration 1 ATP(s) + 8 Shock(s) [facility] No Panel Informationon 05-12 BLANK _ [facility] ICD-Fast Ventricular Tachycardia 0 [facility] Implant Date 03/31/2023 [facility] CNPNon 04-27-2023 CNPN Normal [facility] Basic metabolic 2000 panelon 04-26-2023 Anion gap [Moles/Vol] 15 mmol/L 9 - 18 mmol/L [facility] Calcium [Mass/Vol] 9.8 mg/dL 8.5 - 10. 2 mg/dL [facility] Chloride [Moles/Vol] 96 mmol/L Low 97 - 10 5 mmol/L [facility] CO2 [Moles/Vol] 24 mmol/L 22 - 30 mmol/L [facility] Creatinine [Mass/Vol] 2.07 mg/dL High 0.73 - 1.22 mg/dL [facility] Estimated Glomerular Filtration Rate 35 mL/min/1.73m Low >=60 mL/min/1.73 m [facility] Glucose [Mass/Vol] 100 mg/dL High 74 - 99 mg/dL [facility] Potassium [Moles/Vol] 4.6 mmol/L 3.7 - 5.1 mmol/L [facility] Sodium [Moles/Vol] 135 mmol/L Low 136 - 144 mmol/L [facility] Urea nitrogen [Mass/Vol] 77 mg/dL High 9 - 24 mg/dL [facility] Anion gap [Moles/Vol] 15 mmol/L Normal 9-18 [facility] Comment on above: Order Comment: Speci men Type: BLOOD SPECIMENOrdering Facility: [facility] Address: [address] [place] [address] Performed By: #### 2 4321-2, 57210-1 ####[facility] LABCLIA [id number] [place] [address] [place] Calcium [Mass/Vol] 9.8 mg/dL Normal 8.5-10.2 [facility] Comment on above: Order Comment: Speci men Type: BLOOD SPECIMENOrdering Facility: [facility] Address: [address] [place] [address] Performed By: #### 2 4321-2, 70537-1 ####[facility] LABCLIA [id number] [place] [address] [place] Chloride [Moles/Vol] 96 mmol/L Low 97-105 [facility] Comment on above: Order Comment: Speci men Type: BLOOD SPECIMENOrdering Facility: [facility] Address: [address] [place], [place] [address] Performed By: #### 2 4321-2, 93801-5 ####[facility] LABCLIA [id number] [place] [address] [place] CO2 [Moles/Vol] 24 mmol/L Normal 22-30 [facility] Comment on above: Order Comment: Speci men Type: BLOOD SPECIMENOrdering Facility: [facility] Address: [address] [place], [place] [address] Performed By: #### 2 4321-2, 81925-7 ####[facility] LABCLIA [id number] [place] [address] [place] Creatinine [Mass/Vol] 2.07 mg/dL High 0.73-1.22 [facility] Comment on above: Order Comment: Joseline clemons Type: BLOOD SPECIMENOrdering Facility: [facility] Address: [address] [address] Performed By: #### 2 4321-2, 48921-8 ####[facility] LABCLIA [id number] [address] OF [facility] Creatinine and Glomerular filtration rate.predicted panel (S/P/Bld) 35 mL/min/1.73m??? Low >=60 [facility] Comment on above: Order Comment: Joseline clemons Type: BLOOD SPECIMENOrdering Facility: [facility] Address: [address] [place] [address] Result Comment: Syl mated Glomerular Filtration Rate [...] actual GFR. Performed By: #### 2 4321-2, 13539-7 ####[facility] LABCLIA [id number] [place] [address] [place] Glucose [Mass/Vol] 100 mg/dL High 74-99 [facility] Comment on above: Order Comment: Joseline clemons Type: BLOOD SPECIMENOrdering Facility: [facility] Address: [address] [address] Result Comment: The [place] [employer] (ADA) provides guidance for cutoff [...] Standards of Medical Care in Diabetes 2016, [place] [employer]. Diabetes Care. 2016.39(Suppl 1). Performed By: #### 2 4321-2, 52930-7 ####[facility] LABCLIA [id number] [place] [address] [place] Potassium [Moles/Vol] 4.6 mmol/L Normal 3.7-5.1 [facility] Comment on above: Order Comment: Speci men Type: BLOOD SPECIMENOrdering Facility: [facility] Address: [address] [place] [address] Performed By: #### 2 4321-2, 85921-2 ####[facility] LABIA [id number] [place] [address] [place] Sodium [Moles/Vol] 135 mmol/L Low 136-144 [facility] Comment on above: Order Comment: Speci men Type: BLOOD SPECIMENOrdering Facility: [facility] Address: [address] [address] Performed By: #### 2 4321-2, 82453-7 ####[facility] LABIA [id number] [place] [address] [place] Urea nitrogen [Mass/Vol] 77 mg/dL High 9-24 [facility] Comment on above: Order Comment: Speci men Type: BLOOD SPECIMENOrdering Facility: [facility] Address: [address] [address] Performed By: #### 2 4321-2, 37541-4 ####[facility] LABIA [id number] [place] [address] [place] CNCNPATEDon 04-26-2023 CNCNPATED Normal [facility] CNOVon 04-26-2023 CNOV Normal [facility] NT PRO BNPon 04-26-2023 Natriuretic peptide.B prohormone N-Terminal [Mass/Vol] 6843 pg/mL High <125 pg/mL [facility] NT[facility]BNP [facility] Natriuretic peptide.B prohormone N-Terminal [Mass/Vol] 6843 pg/mL High <125 [facility] Comment on above: Order Comment: Speci men Type: BLOOD SPECIMENOrdering Facility: [facility] Address: [address] [address] Performed By: #### 2 4321-2, 70005-0 ####[facility] LABCLIA [id number] [place] [address] [place] CNPNon 04-19-2023 CNPN Normal [facility] CNPNon 04-14-2023 CNPN Normal [facility] CNPTOUTREACHon 04-14-2023 CNPTOUTREACH Normal [facility] CASE MANAGEMon 04-13-2023 CASE MANAGEM Normal [facility] CBC panel Auto (Bld)on 04-13 Erythrocyte distribution width (RBC) [Ratio] 19.7 % High 11.5-15.0 [facility] Comment on above: Order Comment: Speci men Type: BLOOD SPECIMENOrdering Facility: [facility] Address: [address] Performed By: #### 5 8410-2 ####[facility] LABIA [id number] [place] [address] [place] Hematocrit (Bld) [Volume fraction] 33.9 % Low 39.0-51.0 [facility] Comment on above: Order Comment: Speci men Type: BLOOD SPECIMENOrdering Facility: [facility] Address: [address] Performed By: #### 5 8410-2 ####[facility] LABIA [id number] [place] [address] [place] Hemoglobin (Bld) [Mass/Vol] 10.4 g/dL Low 13.0-17.0 [facility] Comment on above: Order Comment: Speci men Type: BLOOD SPECIMENOrdering Facility: [facility] Address: [address] [address] Performed By: #### 5 8410-2 ####[facility] [id number] [address] STATES [facility] MCH (RBC) [Entitic mass] 24.0 pg Low 26.0-34.0 [facility] Comment on above: Order Comment: Speci men Type: BLOOD SPECIMENOrdering Facility: [facility] Address: [address] [address] Performed By: #### 5 8410-2 ####[facility] [id number] [address] [place] MCHC (RBC) [Mass/Vol] 30.7 g/dL Normal 30.5-36.0 [facility] Comment on above: Order Comment: Speci men Type: BLOOD SPECIMENOrdering Facility: [facility] Address: [address] [address] Performed By: #### 5 8410-2 ####[facility] [id number] [place] [address] [place] MCV (RBC) [Entitic vol] 78.1 fL Low 80.0-100.0 [facility] Comment on above: Order Comment: Speci men Type: BLOOD SPECIMENOrdering Facility: [facility] Address: [address] Performed By: #### 5 8410-2 ####[facility] [id number] [place] [address] [place] Nucleated RBC (Bld) [#/Vol] 10*3/uL Normal <0.01 [facility] Comment on above: Order Comment: Speci men Type: BLOOD SPECIMENOrdering Facility: [facility] Address: [address] [place], [place] [address] Performed By: #### 5 8410-2 ####[facility] LABIA [id number] [place] [address] [place] Platelet mean volume (Bld) [Entitic vol] 10.2 fL Normal 9.0-12.7 [facility] Comment on above: Order Comment: Speci men Type: BLOOD SPECIMENOrdering Facility: [facility] Address: [address] [place], [place] [address] Performed By: #### 5 8410-2 ####[facility] LABIA [id number] [place] [address] [place] Platelets (Bld) [#/Vol] 242 10*3/uL Normal 150-400 [facility] Comment on above: Order Comment: Speci men Type: BLOOD SPECIMENOrdering Facility: [facility] Address: [address] [place], [place] [address] Performed By: #### 5 8410-2 ####[facility] LABIA [id number] [place] [address] [place] RBC (Bld) [#/Vol] 4.34 10*6/uL Normal 4.20-6.00 [facility] Comment on above: Order Comment: Speci men Type: BLOOD SPECIMENOrdering Facility: [facility] Address: [address] [place], [place] [address] Performed By: #### 5 8410-2 ####[facility] LABIA [id number] [place] [address] [place] WBC (Bld) [#/Vol] 6.71 10*3/uL Normal 3.70-11.00 [facility] Comment on above: Order Comment: Speci men Type: BLOOD SPECIMENOrdering Facility: [facility] Address: [address] [place], [place] [address] Performed By: #### 5 8410-2 ####[facility] LABIA [id number] [place] [address] [place] CNDSon 04-13-2023 CNDS Normal [facility] Comprehensive metabolic 2000 panelon 04-13-2023 Albumin [Mass/Vol] 3.2 g/dL Low 3.9-4.9 [facility] Comment on above: Order Comment: Speci men Type: BLOOD SPECIMENOrdering Facility: [facility] Address: [address] [place], [place] [address] Performed By: #### 2 4322-8, ####[facility] LABCLIA [id number] [place] [address] [place] ALP [Catalytic activity/Vol] 162 U/L High 38-113 [facility] Comment on above: Order Comment: Speci men Type: BLOOD SPECIMENOrdering Facility: [facility] Address: [address] [place], [place] [address] Performed By: #### 2 8, ####[facility] LABCLIA [id number] [place] [address] [place] ALT [Catalytic activity/Vol] 45 U/L Normal 10-54 [facility] Comment on above: Order Comment: Speci men Type: BLOOD SPECIMENOrdering Facility: [facility] Address: [address] [place], [place] [address] Performed By: #### 2 432-8, ####[facility] LABCLIA [id number] [place] [address] [place] Anion gap [Moles/Vol] 13 mmol/L Normal 9-18 [facility] Comment on above: Order Comment: Speci men Type: BLOOD SPECIMENOrdering Facility: [facility] Address: [address] [place], [place] [address] Performed By: #### 2 432-8, ####[facility] LABCLIA [id number] [place] [address] [place] AST [Catalytic activity/Vol] 42 U/L High 14-40 [facility] Comment on above: Order Comment: Speci men Type: BLOOD SPECIMENOrdering Facility: [facility] Address: [address] [place] [phone] Performed By: #### 2 432-8, ####[facility] LABCLIA [id number] [place] [address] [place] Bilirubin [Mass/Vol] 0.9 mg/dL Normal 0.2-1.3 [facility] Comment on above: Order Comment: Speci men Type: BLOOD SPECIMENOrdering Facility: [facility] Address: [address] [place], [place] [address] Performed By: #### 2 4322-8, ####[facility] LABCLIA [id number] [place] [address] [place] Calcium [Mass/Vol] 8.7 mg/dL Normal 8.5-10.2 [facility] Comment on above: Order Comment: Speci men Type: BLOOD SPECIMENOrdering Facility: [facility] Address: [address] [place] [phone] Performed By: #### 2 8, ####[facility] LABCLIA [id number] [place] [address] [place] Chloride [Moles/Vol] 94 mmol/L Low 97-105 [facility] Comment on above: Order Comment: Speci men Type: BLOOD SPECIMENOrdering Facility: [facility] Address: [address] [place] [phone] Performed By: #### 2 8, ####[facility] LABCLIA [id number] [place] [address] [place] CO2 [Moles/Vol] 25 mmol/L Normal 22-30 [facility] Comment on above: Order Comment: Speci men Type: BLOOD SPECIMENOrdering Facility: [facility] Address: [address] Performed By: #### 2 [address], ####[facility] LABIA [id number] [place] [address] [place] Creatinine [Mass/Vol] 2.43 mg/dL High 0.73-1.22 [facility] Comment on above: Order Comment: Speci men Type: BLOOD SPECIMENOrdering Facility: [facility] Address: [address] [address] Performed By: #### 2 [address], ####[facility] [id number] [address] [place] Creatinine and Glomerular filtration rate.predicted panel (S/P/Bld) 29 mL/min/1.73m??? Low >=60 [facility] Comment on above: Order Comment: Speci men Type: BLOOD SPECIMENOrdering Facility: [facility] Address: [address] [address] Result Comment: Syl mated Glomerular Filtration Rate [...] actual GFR. Performed By: #### 2 4323-8, ####[facility] LABIA [id number] [place] [address] [place] Glucose [Mass/Vol] 108 mg/dL High 74-99 [facility] Comment on above: Order Comment: Joseline men Type: BLOOD SPECIMENOrdering Facility: [facility] Address: [address] [place] [address] Result Comment: The [place] [employer] (ADA) provides guidance for cutoff [...] Standards of Medical Care in Diabetes 2016, [place] [employer]. Diabetes Care. 2016.39(Suppl 1). Performed By: #### 2 4328, ####[facility] LABCLIA [id number] [place] [address] [place] Potassium [Moles/Vol] 5.0 mmol/L Normal 3.7-5.1 [facility] Comment on above: Order Comment: Speci men Type: BLOOD SPECIMENOrdering Facility: [facility] Address: [address] Performed By: #### 2 4323-03, ####[facility] LABCLIA [id number] [place] [address] [place] Protein [Mass/Vol] 6.0 g/dL Low 6.3-8.0 [facility] Comment on above: Order Comment: Speci men Type: BLOOD SPECIMENOrdering Facility: [facility] Address: [address] [id number] Performed By: #### 2 4323-03, ####[facility] LABIA [id number] [place] [address] [place] Sodium [Moles/Vol] 132 mmol/L Low 136-144 [facility] Comment on above: Order Comment: Speci men Type: BLOOD SPECIMENOrdering Facility: [facility] Address: [address] [id number] Performed By: #### 2 4323-03, ####[facility] LABCLIA [id number] [place] [address] [place] Urea nitrogen [Mass/Vol] 62 mg/dL High 9-24 [facility] Comment on above: Order Comment: Speci men Type: BLOOD SPECIMENOrdering Facility: [facility] Address: [address] [place] [address] Performed By: #### 2 4323-8, ####[facility] LABIA [id number] [place] [address] [place] Magnesium SerPl-mCncon 04-13 Magnesium [Mass/Vol] 2.6 mg/dL High 1.7-2.3 [facility] Comment on above: Order Comment: Speci men Type: BLOOD SPECIMENOrdering Facility: [facility] Address: [address] [place] [address] Performed By: #### 2 4323-8, ####[facility] [id number] [place] [address] [place] NUTRITIONon 04-13-2023 NUTRITION Normal [facility] CBC panel Auto (Bld)on 04-12 Erythrocyte distribution width (RBC) [Ratio] 19.9 % High 11.5-15.0 [facility] Comment on above: Order Comment: Speci men Type: BLOOD SPECIMENOrdering Facility: [facility] Address: [address] [place], [place] [address] Performed By: #### 5 8410-2 ####[facility] LABIA [id number] [place] [address] [place] Hematocrit (Bld) [Volume fraction] 38.2 % Low 39.0-51.0 [facility] Comment on above: Order Comment: Speci men Type: BLOOD SPECIMENOrdering Facility: [facility] Address: [address] [place] [address] Performed By: #### 5 8410-2 ####[facility] LABIA [id number] [place] [address] [place] Hemoglobin (Bld) [Mass/Vol] 11.6 g/dL Low 13.0-17.0 [facility] Comment on above: Order Comment: Speci men Type: BLOOD SPECIMENOrdering Facility: [facility] Address: [address] [place] [address] Performed By: #### 5 8410-2 ####[facility] LABIA [id number] [place] [address] [place] MCH (RBC) [Entitic mass] 24.0 pg Low 26.0-34.0 [facility] Comment on above: Order Comment: Speci men Type: BLOOD SPECIMENOrdering Facility: [facility] Address: [address] [place] [address] Performed By: #### 5 8410-2 ####[facility] [id number] [place] [address] [place] MCHC (RBC) [Mass/Vol] 30.4 g/dL Low 30.5-36.0 [facility] Comment on above: Order Comment: Speci men Type: BLOOD SPECIMENOrdering Facility: [facility] Address: [address] [place] [address] Performed By: #### 5 8410-2 ####[facility] [id number] [place] [address] [place] MCV (RBC) [Entitic vol] 79.1 fL Low 80.0-100.0 [facility] Comment on above: Order Comment: Speci men Type: BLOOD SPECIMENOrdering Facility: [facility] Address: [address] [place] [address] Performed By: #### 5 8410-2 ####[facility] [id number] [place] [address] [place] Nucleated RBC (Bld) [#/Vol] 10*3/uL Normal <0.01 [facility] Comment on above: Order Comment: Speci men Type: BLOOD SPECIMENOrdering Facility: [facility] Address: [address] [place], [place] [address] Performed By: #### 5 8410-2 ####[facility] LABCLIA [id number] [place] [address] [place] Platelet mean volume (Bld) [Entitic vol] 9.8 fL Normal 9.0-12.7 [facility] Comment on above: Order Comment: Speci men Type: BLOOD SPECIMENOrdering Facility: [facility] Address: [address] [place], [place] [address] Performed By: #### 5 8410-2 ####[facility] LABCLIA [id number] [place] [address] [place] Platelets (Bld) [#/Vol] 289 10*3/uL Normal 150-400 [facility] Comment on above: Order Comment: Speci men Type: BLOOD SPECIMENOrdering Facility: [facility] Address: [address] [place], [place] [address] Performed By: #### 5 8410-2 ####[facility] LABCLIA [id number] [place] [address] [place] RBC (Bld) [#/Vol] 4.83 10*6/uL Normal 4.20-6.00 [facility] Comment on above: Order Comment: Speci men Type: BLOOD SPECIMENOrdering Facility: [facility] Address: [address] [place] [phone] Performed By: #### 5 8410-2 ####[facility] LABCLIA [id number] [place] [address] [place] WBC (Bld) [#/Vol] 7.66 10*3/uL Normal 3.70-11.00 [facility] Comment on above: Order Comment: Speci men Type: BLOOD SPECIMENOrdering Facility: [facility] Address: [address] [place], [place] [address] Performed By: #### 5 8410-2 ####[facility] LABCLIA [id number] [place] [address] [place] CONSULT PROGon 04-12-2023 CONSULT PROG Normal [facility] Comprehensive metabolic 2000 panelon 04-12-2023 Albumin [Mass/Vol] 3.9 g/dL Normal 3.9-4.9 [facility] Comment on above: Order Comment: Speci men Type: BLOOD SPECIMENOrdering Facility: [facility] Address: [address] [place], [place] [address] Performed By: #### 2 4323-8, ####[facility] LABCLIA [id number] [place] [address] [place] ALP [Catalytic activity/Vol] 187 U/L High 38-113 [facility] Comment on above: Order Comment: Speci men Type: BLOOD SPECIMENOrdering Facility: [facility] Address: [address] [place], [place] [address] Performed By: #### 2 432-8, ####[facility] LABCLIA [id number] [place] [address] [place] ALT [Catalytic activity/Vol] 52 U/L Normal 10-54 [facility] Comment on above: Order Comment: Speci men Type: BLOOD SPECIMENOrdering Facility: [facility] Address: [address] [place], [place] [address] Performed By: #### 2 4323-8, ####[facility] LABCLIA [id number] [place] [address] [place] Anion gap [Moles/Vol] 16 mmol/L Normal 9-18 [facility] Comment on above: Order Comment: Speci men Type: BLOOD SPECIMENOrdering Facility: [facility] Address: [address] Performed By: #### 2 4323-8, ####[facility] LABCLIA [id number] [place] [address] [place] AST [Catalytic activity/Vol] 55 U/L High 14-40 [facility] Comment on above: Order Comment: Speci men Type: BLOOD SPECIMENOrdering Facility: [facility] Address: [address] [address] Performed By: #### 2 432-8, ####[facility] LABIA [id number] [place] [address] [place] Bilirubin [Mass/Vol] 1.1 mg/dL Normal 0.2-1.3 [facility] Comment on above: Order Comment: Speci men Type: BLOOD SPECIMENOrdering Facility: [facility] Address: [address] [place] [address] Performed By: #### 2 4328, ####[facility] LABCLIA [id number] [place] [address] [place] Calcium [Mass/Vol] 9.6 mg/dL Normal 8.5-10.2 [facility] Comment on above: Order Comment: Speci men Type: BLOOD SPECIMENOrdering Facility: [facility] Address: [address] [place], [place] [address] Performed By: #### 2 4323-8, ####[facility] LABIA [id number] [place] [address] [place] Chloride [Moles/Vol] 92 mmol/L Low 97-105 [facility] Comment on above: Order Comment: Speci men Type: BLOOD SPECIMENOrdering Facility: [facility] Address: [address] Performed By: #### 2 4323-03, ####[facility] LABCLIA [id number] [place] [address] [place] CO2 [Moles/Vol] 24 mmol/L Normal 22-30 [facility] Comment on above: Order Comment: Speci men Type: BLOOD SPECIMENOrdering Facility: [facility] Address: [address] [place] [address] Performed By: #### 2 4323-03, ####[facility] LABIA [id number] [place] [address] [place] Creatinine [Mass/Vol] 2.42 mg/dL High 0.73-1.22 [facility] Comment on above: Order Comment: Speci men Type: BLOOD SPECIMENOrdering Facility: [facility] Address: [address] [place] [address] Performed By: #### 2 4323-03, ####[facility] LABIA [id number] [place] [address] [place] Creatinine and Glomerular filtration rate.predicted panel (S/P/Bld) 29 mL/min/1.73m??? Low >=60 [facility] Comment on above: Order Comment: Speci men Type: BLOOD SPECIMENOrdering Facility: [facility] Address: [address] [place] [address] Result Comment: Syl mated Glomerular Filtration Rate [...] reflect actual GFR. Performed By: #### 2 4323-03, ####[facility] LABIA [id number] [place] [address] [place] Glucose [Mass/Vol] 139 mg/dL High 74-99 [facility] Comment on above: Order Comment: Reneei men Type: BLOOD SPECIMENOrdering Facility: [facility] Address: [address] [place] [address] Result Comment: The [place] [employer] (ADA) provides guidance for cutoff [...] Standards of Medical Care in Diabetes 2016, [place] [employer]. Diabetes Care. 2016.39(Suppl 1). Performed By: #### 2 4323-8, ####[facility] LABCLIA [id number] [place] [address] [place] Potassium [Moles/Vol] 5.0 mmol/L Normal 3.7-5.1 [facility] Comment on above: Order Comment: Joseline clemons Type: BLOOD SPECIMENOrdering Facility: [facility] Address: [address] [place], [place] [address] Performed By: #### 2 43210-12, ####[facility] LABCLIA [id number] [place] [address] [place] Protein [Mass/Vol] 7.1 g/dL Normal 6.3-8.0 [facility] Comment on above: Order Comment: Joseline clemons Type: BLOOD SPECIMENOrdering Facility: [facility] Address: [address] [place] [address] Performed By: #### 2 4323, ####[facility] LABCLIA [id number] [place] [address] [place] Sodium [Moles/Vol] 132 mmol/L Low 136-144 [facility] Comment on above: Order Comment: Speci men Type: BLOOD SPECIMENOrdering Facility: [facility] Address: [address] Performed By: #### 2 4323-8, ####[facility] LABCLIA [id number] [place] [address] [place] Urea nitrogen [Mass/Vol] 65 mg/dL High 9-24 [facility] Comment on above: Order Comment: Speci men Type: BLOOD SPECIMENOrdering Facility: [facility] Address: [address] [place] [address] Performed By: #### 2 4323-8, ####[facility] LABCLIA [id number] [place] [address] [place] Magnesium SerPl-mCncon 04-12 Magnesium [Mass/Vol] 2.9 mg/dL High 1.7-2.3 [facility] Comment on above: Order Comment: Speci men Type: BLOOD SPECIMENOrdering Facility: [facility] Address: [address] [place] [address] Performed By: #### 2 4323-8, ####[facility] LABCLIA [id number] [place] [address] [place] NURSING PROGon 04-12-2023 NURSING PROG Normal [facility] CASE MANAGEMon 04-11-2023 CASE MANAGEM Normal [facility] CBC panel Auto (Bld)on 04-11 Erythrocyte distribution width (RBC) [Ratio] 19.9 % High 11.5-15.0 [facility] Comment on above: Order Comment: Speci men Type: BLOOD SPECIMENOrdering Facility: [facility] Address: [address] [place] [address] Performed By: #### 5 8410-2 ####[facility] LABCLIA [id number] [place] [address] [place] Hematocrit (Bld) [Volume fraction] 37.9 % Low 39.0-51.0 [facility] Comment on above: Order Comment: Speci men Type: BLOOD SPECIMENOrdering Facility: [facility] Address: [address] [place] [address] Performed By: #### 5 8410-2 ####[facility] LABCLIA [id number] [address] [place] Hemoglobin (Bld) [Mass/Vol] 11.5 g/dL Low 13.0-17.0 [facility] Comment on above: Order Comment: Speci men Type: BLOOD SPECIMENOrdering Facility: [facility] Address: [address] [place] [address] Performed By: #### 5 8410-2 ####[facility] LABIA [id number] [address] STATES OF [facility] MCH (RBC) [Entitic mass] 23.9 pg Low 26.0-34.0 [facility] Comment on above: Order Comment: Speci men Type: BLOOD SPECIMENOrdering Facility: [facility] Address: [address] [place] [address] Performed By: #### 5 8410-2 ####[facility] LABIA [id number] [place] [address] [place] MCHC (RBC) [Mass/Vol] 30.3 g/dL Low 30.5-36.0 [facility] Comment on above: Order Comment: Speci men Type: BLOOD SPECIMENOrdering Facility: [facility] Address: [address] [place] [address] Performed By: #### 5 8410-2 ####[facility] LABCLIA [id number] [place] [address] [place] MCV (RBC) [Entitic vol] 78.8 fL Low 80.0-100.0 [facility] Comment on above: Order Comment: Speci men Type: BLOOD SPECIMENOrdering Facility: [facility] Address: [address] Performed By: #### 5 8410-2 ####[facility] LABIA [id number] [place] [address] [place] Nucleated RBC (Bld) [#/Vol] 10*3/uL Normal <0.01 [facility] Comment on above: Order Comment: Speci men Type: BLOOD SPECIMENOrdering Facility: [facility] Address: [address] Performed By: #### 5 8410-2 ####[facility] LABIA [id number] [place] [address] [place] Platelet mean volume (Bld) [Entitic vol] 10.1 fL Normal 9.0-12.7 [facility] Comment on above: Order Comment: Speci men Type: BLOOD SPECIMENOrdering Facility: [facility] Address: [address] [place], [place] [address] Performed By: #### 5 8410-2 ####[facility] LABIA [id number] [place] [address] [place] Platelets (Bld) [#/Vol] 320 10*3/uL Normal 150-400 [facility] Comment on above: Order Comment: Speci men Type: BLOOD SPECIMENOrdering Facility: [facility] Address: [address] [place] [address] Performed By: #### 5 8410-2 ####[facility] LABIA [id number] [place] [address] [place] RBC (Bld) [#/Vol] 4.81 10*6/uL Normal 4.20-6.00 [facility] Comment on above: Order Comment: Speci men Type: BLOOD SPECIMENOrdering Facility: [facility] Address: [address] [place], [place] [address] Performed By: #### 5 8410-2 ####[facility] LABIA [id number] [address] OF [facility] WBC (Bld) [#/Vol] 7.97 10*3/uL Normal 3.70-11.00 [facility] Comment on above: Order Comment: Speci men Type: BLOOD SPECIMENOrdering Facility: [facility] Address: [address] [place], [place] [address] Performed By: #### 5 8410-2 ####[facility] LABIA [id number] [place] [address] [place] [facility] Comprehensive metabolic 2000 panelon 04-11-2023 Albumin [Mass/Vol] 3.7 g/dL Low 3.9-4.9 [facility] Comment on above: Order Comment: Speci men Type: BLOOD SPECIMENOrdering Facility: [facility] Address: [address] [place], [place] [address] Performed By: #### 1 9123-9, 00839-3 ####[facility] [id number] [place] [address] [place] ALP [Catalytic activity/Vol] 173 U/L High 38-113 [facility] Comment on above: Order Comment: Speci men Type: BLOOD SPECIMENOrdering Facility: [facility] Address: [address] [place], [place] [address] Performed By: #### 1 9123-9, 48021-7 ####[facility] LABIA [id number] [address] ALT [Catalytic activity/Vol] 36 U/L Normal 10-54 [facility] Comment on above: Order Comment: Speci men Type: BLOOD SPECIMENOrdering Facility: [facility] Address: [address] [place], [place] [address] Performed By: #### 1 23-9, 37461-5 ####[facility] LABCLIA [id number] [place] [address] [place] Anion gap [Moles/Vol] 13 mmol/L Normal 9-18 [facility] Comment on above: Order Comment: Speci men Type: BLOOD SPECIMENOrdering Facility: [facility] Address: [address] [place] [address] Performed By: #### 1 23-9, 01045-0 ####[facility] LABCLIA [id number] [place] [address] [place] AST [Catalytic activity/Vol] 36 U/L Normal 14-40 [facility] Comment on above: Order Comment: Speci men Type: BLOOD SPECIMENOrdering Facility: [facility] Address: [address] [place] [address] Performed By: #### 1 239, 45734-9 ####[facility] LABCLIA [id number] [place] [address] [place] Bilirubin [Mass/Vol] 1.0 mg/dL Normal 0.2-1.3 [facility] Comment on above: Order Comment: Speci men Type: BLOOD SPECIMENOrdering Facility: [facility] Address: [address] [place] [address] Performed By: #### 1 9123-9, 43944-1 ####[facility] LABCLIA [id number] [place] [address] [place] Calcium [Mass/Vol] 9.4 mg/dL Normal 8.5-10.2 [facility] Comment on above: Order Comment: Speci men Type: BLOOD SPECIMENOrdering Facility: [facility] Address: [address] [place], [place] [address] Performed By: #### 1 9123-9, 93804-3 ####[facility] LABCLIA [id number] [place] [address] [place] Chloride [Moles/Vol] 90 mmol/L Low 97-105 [facility] Comment on above: Order Comment: Speci men Type: BLOOD SPECIMENOrdering Facility: [facility] Address: [address] [place] [address] Performed By: #### 1 9123-9, 71195-8 ####[facility] LABCLIA [id number] [address] STATES [place] [facility] CO2 [Moles/Vol] 27 mmol/L Normal 22-30 [facility] Comment on above: Order Comment: Speci men Type: BLOOD SPECIMENOrdering Facility: [facility] Address: [address] [place] [address] Performed By: #### 1 9123-9, 52794-7 ####[facility] LABIA [id number] [address] OF [facility] Creatinine [Mass/Vol] 2.27 mg/dL High 0.73-1.22 [facility] Comment on above: Order Comment: Speci men Type: BLOOD SPECIMENOrdering Facility: [facility] Address: [address] [place] [address] Performed By: #### 1 9123-9, 37969-0 ####[facility] LABIA [id number] [address] Creatinine and Glomerular filtration rate.predicted panel (S/P/Bld) 31 mL/min/1.73m??? Low >=60 [facility] Comment on above: Order Comment: Speci men Type: BLOOD SPECIMENOrdering Facility: [facility] Address: [address] [place] [address] Result Comment: Syl mated Glomerular Filtration Rate [...] actual GFR. Performed By: #### 1 9123-9, 71683-1 ####[facility] LABIA [id number] [place] [address] [place] Glucose [Mass/Vol] 152 mg/dL High 74-99 [facility] Comment on above: Order Comment: Speci men Type: BLOOD SPECIMENOrdering Facility: [facility] Address: [address] [address] Result Comment: The [place] [employer] (ADA) provides guidance for cutoff [...] Standards of Medical Care in Diabetes 2016, [place] [employer]. Diabetes Care. 2016.39(Suppl 1). Performed By: #### 1 9123-9, 31064-3 ####[facility] LABIA [id number] [place] [address] [place] Potassium [Moles/Vol] 4.7 mmol/L Normal 3.7-5.1 [facility] Comment on above: Order Comment: Joseline men Type: BLOOD SPECIMENOrdering Facility: [facility] Address: [address] [address] Performed By: #### 1 9123-9, 10101-4 ####[facility] LABIA [id number] [place] [address] [place] Protein [Mass/Vol] 6.8 g/dL Normal 6.3-8.0 [facility] Comment on above: Order Comment: Reneei men Type: BLOOD SPECIMENOrdering Facility: [facility] Address: [address] Performed By: #### 1 9123-9, 18431-1 ####[facility] LABIA [id number] [place] [address] [place] Sodium [Moles/Vol] 130 mmol/L Low 136-144 [facility] Comment on above: Order Comment: Speci men Type: BLOOD SPECIMENOrdering Facility: [facility] Address: [address] [place] [address] Performed By: #### 1 9123-9, 97355-8 ####[facility] LABIA [id number] [place] [address] [place] Urea nitrogen [Mass/Vol] 61 mg/dL High 9-24 [facility] Comment on above: Order Comment: Speci men Type: BLOOD SPECIMENOrdering Facility: [facility] Address: [address] [place] [address] Performed By: #### 1 9123-9, 78979-1 ####[facility] LABIA [id number] [place] [address] [place] Magnesium SerPl-mCncon 04-11 Magnesium [Mass/Vol] 2.7 mg/dL High 1.7-2.3 [facility] Comment on above: Order Comment: Speci men Type: BLOOD SPECIMENOrdering Facility: [facility] Address: [address] [place] [address] Performed By: #### 1 9123-9, 76870-7 ####[facility] LABIA [id number] [place] [address] [place] CBC panel Auto (Bld)on 04-10 Erythrocyte distribution width (RBC) [Ratio] 19.6 % High 11.5-15.0 [facility] Comment on above: Order Comment: Speci men Type: BLOOD SPECIMENOrdering Facility: [facility] Address: [address] [place] [address] Performed By: #### 5 8410-2 ####[facility] LABCLIA [id number] [address] [place] Hematocrit (Bld) [Volume fraction] 35.1 % Low 39.0-51.0 [facility] Comment on above: Order Comment: Speci men Type: BLOOD SPECIMENOrdering Facility: [facility] Address: [address] Performed By: #### 5 8410-2 ####[facility] LABIA [id number] [place] [address] [place] Hemoglobin (Bld) [Mass/Vol] 11.1 g/dL Low 13.0-17.0 [facility] Comment on above: Order Comment: Speci men Type: BLOOD SPECIMENOrdering Facility: [facility] Address: [address] Performed By: #### 5 8410-2 ####[facility] LABIA [id number] [place] [address] [place] MCH (RBC) [Entitic mass] 24.6 pg Low 26.0-34.0 [facility] Comment on above: Order Comment: Speci men Type: BLOOD SPECIMENOrdering Facility: [facility] Address: [address] Performed By: #### 5 8410-2 ####[facility] LABCLIA [id number] [place] [address] [place] MCHC (RBC) [Mass/Vol] 31.6 g/dL Normal 30.5-36.0 [facility] Comment on above: Order Comment: Speci men Type: BLOOD SPECIMENOrdering Facility: [facility] Address: [address] Performed By: #### 5 8410-2 ####[facility] LABCLIA [id number] [place] [address] [place] MCV (RBC) [Entitic vol] 77.7 fL Low 80.0-100.0 [facility] Comment on above: Order Comment: Speci men Type: BLOOD SPECIMENOrdering Facility: [facility] Address: [address] [place] [address] Performed By: #### 5 8410-2 ####[facility] LABIA [id number] [place] [address] [place] Nucleated RBC (Bld) [#/Vol] 10*3/uL Normal <0.01 [facility] Comment on above: Order Comment: Speci men Type: BLOOD SPECIMENOrdering Facility: [facility] Address: [address] [place] [address] Performed By: #### 5 8410-2 ####[facility] LABIA [id number] [address] [place] Platelet mean volume (Bld) [Entitic vol] 10.6 fL Normal 9.0-12.7 [facility] Comment on above: Order Comment: Speci men Type: BLOOD SPECIMENOrdering Facility: [facility] Address: [address] [place], [place] [address] Performed By: #### 5 8410-2 ####[facility] LABIA [id number] [place] [address] [place] Platelets (Bld) [#/Vol] 311 10*3/uL Normal 150-400 [facility] Comment on above: Order Comment: Speci men Type: BLOOD SPECIMENOrdering Facility: [facility] Address: [address] [place], [place] [address] Performed By: #### 5 8410-2 ####[facility] LABCLIA [id number] [place] [address] [place] RBC (Bld) [#/Vol] 4.52 10*6/uL Normal 4.20-6.00 [facility] Comment on above: Order Comment: Speci men Type: BLOOD SPECIMENOrdering Facility: [facility] Address: [address] [place], [place] [address] Performed By: #### 5 8410-2 ####[facility] LABCLIA [id number] [place] [address] [place] WBC (Bld) [#/Vol] 7.69 10*3/uL Normal 3.70-11.00 [facility] Comment on above: Order Comment: Speci men Type: BLOOD SPECIMENOrdering Facility: [facility] Address: [address] [place] [address] Performed By: #### 5 8410-2 ####[facility] LABCLIA [id number] [place] [address] [place] Comprehensive metabolic 2000 panelon 04-10-2023 Albumin [Mass/Vol] 3.2 g/dL Low 3.9-4.9 [facility] Comment on above: Order Comment: Speci men Type: BLOOD SPECIMENOrdering Facility: [facility] Address: [address] [place], [place] [address] Performed By: #### 3 3762-6, 08026-6, ####[facility] LABCLIA [id number] [place] [address] [place] ALP [Catalytic activity/Vol] 164 U/L High 38-113 [facility] Comment on above: Order Comment: Speci men Type: BLOOD SPECIMENOrdering Facility: [facility] Address: [address] [place], [place] [address] Performed By: #### 3 3762-6, 50823-9, ####[facility] LABCLIA [id number] [facility] [place] [address] [place] ALT [Catalytic activity/Vol] 34 U/L Normal 10-54 [facility] Comment on above: Order Comment: Speci men Type: BLOOD SPECIMENOrdering Facility: [facility] Address: [address] [place] [address] Performed By: #### 3 3762-6, 46314-8, ####[facility] LABCLIA [id number] [place] [address] [place] Anion gap [Moles/Vol] 13 mmol/L Normal 9-18 [facility] Comment on above: Order Comment: Speci men Type: BLOOD SPECIMENOrdering Facility: [facility] Address: [address] [place] [address] Performed By: #### 3 3762-6, 57850-8, ####[facility] LABCLIA [id number] [place] [address] [place] AST [Catalytic activity/Vol] 30 U/L Normal 14-40 [facility] Comment on above: Order Comment: Speci men Type: BLOOD SPECIMENOrdering Facility: [facility] Address: [address] [place] [address] Performed By: #### 3 3762-6, 44860-1, ####[facility] LABCLIA [id number] [place] [address] [place] Bilirubin [Mass/Vol] 0.9 mg/dL Normal 0.2-1.3 [facility] Comment on above: Order Comment: Speci men Type: BLOOD SPECIMENOrdering Facility: [facility] Address: [address] [place] [address] Performed By: #### 3 3762-6, 67384-8, ####[facility] LABCLIA [id number] [place] [address] [place] Calcium [Mass/Vol] 9.2 mg/dL Normal 8.5-10.2 [facility] Comment on above: Order Comment: Speci men Type: BLOOD SPECIMENOrdering Facility: [facility] Address: [address] [place], [place] [address] Performed By: #### 3 3762-6, 93300-8, ####[facility] LABCLIA [id number] [place] [address] [place] Chloride [Moles/Vol] 90 mmol/L Low 97-105 [facility] Comment on above: Order Comment: Speci men Type: BLOOD SPECIMENOrdering Facility: [facility] Address: [address] [place] [address] Performed By: #### 3 3762-6, 40785-6, ####[facility] LABCLIA [id number] [place] [address] [place] CO2 [Moles/Vol] 25 mmol/L Normal 22-30 [facility] Comment on above: Order Comment: Speci men Type: BLOOD SPECIMENOrdering Facility: [facility] Address: [address] [place] [address] Performed By: #### 3 3762-6, 78175-4, ####[facility] LABCLIA [id number] [place] [address] [place] Creatinine [Mass/Vol] 2.40 mg/dL High 0.73-1.22 [facility] Comment on above: Order Comment: Speci men Type: BLOOD SPECIMENOrdering Facility: [facility] Address: [address] [place], [place] [address] Performed By: #### 3 3762-6, 03279-2, ####[facility] LABIA [id number] [place] [address] [place] Creatinine and Glomerular filtration rate.predicted panel (S/P/Bld) 29 mL/min/1.73m??? Low >=60 [facility] Comment on above: Order Comment: Speci men Type: BLOOD SPECIMENOrdering Facility: [facility] Address: [address] [place] [address] Result Comment: Syl mated Glomerular Filtration Rate [...] actual GFR. Performed By: #### 3 3762-6, 14063-2, ####[facility] LABCLIA [id number] [place] [id number] [place] Glucose [Mass/Vol] 145 mg/dL High 74-99 [facility] Comment on above: Order Comment: Speccate men Type: BLOOD SPECIMENOrdering Facility: [facility] Address: [address] [place] [place] [id number] Result Comment: The [place] [employer] (ADA) provides guidance for cutoff [...] Standards of Medical Care in Diabetes 2016, [place] [employer]. Diabetes Care. 2016.39(Suppl 1). Performed By: #### 3 3762-6, 65528-6, ####[facility] LABIA [id number] [place] [id number] [place] Potassium [Moles/Vol] 5.0 mmol/L Normal 3.7-5.1 [facility] Comment on above: Order Comment: Speci men Type: BLOOD SPECIMENOrdering Facility: [facility] Address: [address] [id number] Performed By: #### 3 3762-6, 94614-6, 52070-8 ####[facility] LABCLIA [id number] [address] [address] [place] Protein [Mass/Vol] 6.3 g/dL Normal 6.3-8.0 [facility] Comment on above: Order Comment: Speci men Type: BLOOD SPECIMENOrdering Facility: [facility] Address: [address] Performed By: #### 3 3762-6, 28005-5, ####[facility] LABCLIA [id number] [place] [address] [place] Sodium [Moles/Vol] 128 mmol/L Low 136-144 [facility] Comment on above: Order Comment: Speci men Type: BLOOD SPECIMENOrdering Facility: [facility] Address: [address] [place] [address] Performed By: #### 3 3762-6, 40288-7, ####[facility] LABIA [id number] [place] [address] [place] Urea nitrogen [Mass/Vol] 62 mg/dL High 9-24 [facility] Comment on above: Order Comment: Speci men Type: BLOOD SPECIMENOrdering Facility: [facility] Address: [address] [place], [place] [address] Performed By: #### 3 3762-6, 95429-3, 72491-9 ####[facility] LABIA [id number] [place] [id number] [place] Magnesium SerPl-mCncon 04-10 Magnesium [Mass/Vol] 2.8 mg/dL High 1.7-2.3 [facility] Comment on above: Order Comment: Speci men Type: BLOOD SPECIMENOrdering Facility: [facility] Address: [address] [place], [place] [address] Performed By: #### 3 3762-6, 39640-1, 48653-6 ####[facility] LABCLIA [id number] [address] [place] [facility]BNP [facility] mar[facility] 04-10 Natriuretic peptide.B prohormone N-Terminal [Mass/Vol] 5066 pg/mL High <125 [facility] Comment on above: Order Comment: Speci men Type: BLOOD SPECIMENOrdering Facility: [facility] Address: [address] [place] [address] Performed By: #### 3 3762-6, 08403-1, ####[facility] LABIA [id number] [address] [place] CBC panel Auto (Bld)on 04-09 Erythrocyte distribution width (RBC) [Ratio] 19.9 % High 11.5-15.0 [facility] Comment on above: Order Comment: Speci men Type: BLOOD SPECIMENOrdering Facility: [facility] Address: [address] [place] [address] Performed By: #### 5 8410-2 ####[facility] LABIA [id number] [address] [place] Hematocrit (Bld) [Volume fraction] 35.6 % Low 39.0-51.0 [facility] Comment on above: Order Comment: Speci men Type: BLOOD SPECIMENOrdering Facility: [facility] Address: [address] Performed By: #### 5 8410-2 ####[facility] LABIA [id number] [place] [address] [place] Hemoglobin (Bld) [Mass/Vol] 11.2 g/dL Low 13.0-17.0 [facility] Comment on above: Order Comment: Speci men Type: BLOOD SPECIMENOrdering Facility: [facility] Address: [address] Performed By: #### 5 8410-2 ####[facility] LABIA [id number] [address] STATES [facility] MCH (RBC) [Entitic mass] 24.6 pg Low 26.0-34.0 [facility] Comment on above: Order Comment: Speci men Type: BLOOD SPECIMENOrdering Facility: [facility] Address: [address] Performed By: #### 5 8410-2 ####[facility] [id number] [address] [place] MCHC (RBC) [Mass/Vol] 31.5 g/dL Normal 30.5-36.0 [facility] Comment on above: Order Comment: Speci men Type: BLOOD SPECIMENOrdering Facility: [facility] Address: [address] [place], [place] [address] Performed By: #### 5 8410-2 ####[facility] [id number] [address] [place] MCV (RBC) [Entitic vol] 78.1 fL Low 80.0-100.0 [facility] Comment on above: Order Comment: Speci men Type: BLOOD SPECIMENOrdering Facility: [facility] Address: [address] [place], [place] [address] Performed By: #### 5 8410-2 ####[facility] [id number] [address] [place] Nucleated RBC (Bld) [#/Vol] 10*3/uL Normal <0.01 [facility] Comment on above: Order Comment: Speci men Type: BLOOD SPECIMENOrdering Facility: [facility] Address: [address] [place], [place] [address] Performed By: #### 5 8410-2 ####[facility] LABIA [id number] [place] [address] [place] Platelet mean volume (Bld) [Entitic vol] 10.3 fL Normal 9.0-12.7 [facility] Comment on above: Order Comment: Speci men Type: BLOOD SPECIMENOrdering Facility: [facility] Address: [address] [place] [address] Performed By: #### 5 8410-2 ####[facility] LABCLIA [id number] [place] [address] [place] Platelets (Bld) [#/Vol] 303 10*3/uL Normal 150-400 [facility] Comment on above: Order Comment: Speci men Type: BLOOD SPECIMENOrdering Facility: [facility] Address: [address] [place] [address] Performed By: #### 5 8410-2 ####[facility] LABCLIA [id number] [place] [address] [place] RBC (Bld) [#/Vol] 4.56 10*6/uL Normal 4.20-6.00 [facility] Comment on above: Order Comment: Speci men Type: BLOOD SPECIMENOrdering Facility: [facility] Address: [address] [place] [address] Performed By: #### 5 8410-2 ####[facility] LABIA [id number] [place] [address] [place] WBC (Bld) [#/Vol] 9.41 10*3/uL Normal 3.70-11.00 [facility] Comment on above: Order Comment: Speci men Type: BLOOD SPECIMENOrdering Facility: [facility] Address: [address] [place] [address] Performed By: #### 5 8410-2 ####[facility] LABCLIA [id number] [place] [address] [place] Comprehensive metabolic 2000 panelon 04-09-2023 Albumin [Mass/Vol] 3.4 g/dL Low 3.9-4.9 [facility] Comment on above: Order Comment: Speci men Type: BLOOD SPECIMENOrdering Facility: [facility] Address: [address] [place], [place] [address] Performed By: #### 1 9123-9, 27124-1 ####[facility] LABCLIA [id number] [place] [address] [place] ALP [Catalytic activity/Vol] 170 U/L High 38-113 [facility] Comment on above: Order Comment: Speci men Type: BLOOD SPECIMENOrdering Facility: [facility] Address: [address] [place], [place] [address] Performed By: #### 1 23-9, ####[facility] LABCLIA [id number] [place] [address] [place] ALT [Catalytic activity/Vol] 30 U/L Normal 10-54 [facility] Comment on above: Order Comment: Speci men Type: BLOOD SPECIMENOrdering Facility: [facility] Address: [address] [place] [address] Performed By: #### 1 239, ####[facility] LABCLIA [id number] [place] [address] [place] Anion gap [Moles/Vol] 16 mmol/L Normal 9-18 [facility] Comment on above: Order Comment: Speci men Type: BLOOD SPECIMENOrdering Facility: [facility] Address: [address] [place], [place] [address] Performed By: #### 1 23-9, 47977-7 ####[facility] LABCLIA [id number] [place] [address] [place] AST [Catalytic activity/Vol] 30 U/L Normal 14-40 [facility] Comment on above: Order Comment: Speci men Type: BLOOD SPECIMENOrdering Facility: [facility] Address: [address] Performed By: #### 1 23-9, 45062-0 ####[facility] LABIA [id number] [place] [address] [place] Bilirubin [Mass/Vol] 1.0 mg/dL Normal 0.2-1.3 [facility] Comment on above: Order Comment: Speci men Type: BLOOD SPECIMENOrdering Facility: [facility] Address: [address] Performed By: #### 1 239, ####[facility] LABIA [id number] [place] [address] [place] Calcium [Mass/Vol] 9.6 mg/dL Normal 8.5-10.2 [facility] Comment on above: Order Comment: Speci men Type: BLOOD SPECIMENOrdering Facility: [facility] Address: [address] Performed By: #### 1 239, ####[facility] LABIA [id number] [place] [address] [place] Chloride [Moles/Vol] 89 mmol/L Low 97-105 [facility] Comment on above: Order Comment: Speci men Type: BLOOD SPECIMENOrdering Facility: [facility] Address: [address] Performed By: #### 1 23-9, 54617-2 ####[facility] LABIA [id number] [place] [address] [place] CO2 [Moles/Vol] 24 mmol/L Normal 22-30 [facility] Comment on above: Order Comment: Speci men Type: BLOOD SPECIMENOrdering Facility: [facility] Address: [address] Performed By: #### 1 23, ####[facility] LABCLIA [id number] [place] [address] [place] Creatinine [Mass/Vol] 2.50 mg/dL High 0.73-1.22 [facility] Comment on above: Order Comment: Joseline clemons Type: BLOOD SPECIMENOrdering Facility: [facility] Address: [address] [place] [address] Performed By: #### 1 239, ####[facility] LABIA [id number] [place] [address] [place] Creatinine and Glomerular filtration rate.predicted panel (S/P/Bld) 28 mL/min/1.73m??? Low >=60 [facility] Comment on above: Order Comment: Joseline clemons Type: BLOOD SPECIMENOrdering Facility: [facility] Address: [address] [place] [place] [address] Result Comment: Syl mated Glomerular Filtration Rate [...] reflect actual GFR. Performed By: #### 1 239, ####[facility] LABIA [id number] [place] [address] [place] Glucose [Mass/Vol] 154 mg/dL High 74-99 [facility] Comment on above: Order Comment: Reneei kaci Type: BLOOD SPECIMENOrdering Facility: [facility] Address: [address] [place] [address] Result Comment: The [place] [employer] (ADA) provides guidance for cutoff [...] Standards of Medical Care in Diabetes 2016, [place] [employer]. Diabetes Care. 2016.39(Suppl 1). Performed By: #### 1 23-9, ####[facility] LABCLIA [id number] [place] [address] [place] Potassium [Moles/Vol] 4.6 mmol/L Normal 3.7-5.1 [facility] Comment on above: Order Comment: Speci men Type: BLOOD SPECIMENOrdering Facility: [facility] Address: [address] [place] [address] Performed By: #### 1 9123-04, ####[facility] LABCLIA [id number] [place] [address] [place] Protein [Mass/Vol] 7.0 g/dL Normal 6.3-8.0 [facility] Comment on above: Order Comment: Speci men Type: BLOOD SPECIMENOrdering Facility: [facility] Address: [address] [place] [address] Performed By: #### 1 239, ####[facility] LABCLIA [id number] [place] [address] [place] Sodium [Moles/Vol] 129 mmol/L Low 136-144 [facility] Comment on above: Order Comment: Speci men Type: BLOOD SPECIMENOrdering Facility: [facility] Address: [address] [place] [address] Performed By: #### 1 239, ####[facility] LABCLIA [id number] [place] [address] [place] Urea nitrogen [Mass/Vol] 61 mg/dL High 9-24 [facility] Comment on above: Order Comment: Speci men Type: BLOOD SPECIMENOrdering Facility: [facility] Address: [address] [place] [address] Performed By: #### 1 9123-9, 69958-1 ####[facility] LABCLIA [id number] [place] [address] [place] Magnesium SerPl-mCncon 04-09 Magnesium [Mass/Vol] 2.6 mg/dL High 1.7-2.3 [facility] Comment on above: Order Comment: Speci men Type: BLOOD SPECIMENOrdering Facility: [facility] Address: [address] [place] [address] Performed By: #### 1 9123-9, 55117-0 ####[facility] LABCLIA [id number] [place] [address] [place] CBC panel Auto (Bld)on 04-08 Erythrocyte distribution width (RBC) [Ratio] 19.9 % High 11.5-15.0 [facility] Comment on above: Order Comment: Speci men Type: BLOOD SPECIMENOrdering Facility: [facility] Address: [address] [place] [address] Performed By: #### 5 8410-2 ####[facility] LABCLIA [id number] [place] [address] [place] Hematocrit (Bld) [Volume fraction] 34.7 % Low 39.0-51.0 [facility] Comment on above: Order Comment: Speci men Type: BLOOD SPECIMENOrdering Facility: [facility] Address: [address] [place] [address] Performed By: #### 5 8410-2 ####[facility] LABCLIA [id number] [place] [address] [place] Hemoglobin (Bld) [Mass/Vol] 10.9 g/dL Low 13.0-17.0 [facility] Comment on above: Order Comment: Speci men Type: BLOOD SPECIMENOrdering Facility: [facility] Address: [address] Performed By: #### 5 8410-2 ####[facility] [id number] [address] [place] MCH (RBC) [Entitic mass] 24.4 pg Low 26.0-34.0 [facility] Comment on above: Order Comment: Speci men Type: BLOOD SPECIMENOrdering Facility: [facility] Address: [address] Performed By: #### 5 8410-2 ####[facility] [id number] [address] [place] MCHC (RBC) [Mass/Vol] 31.4 g/dL Normal 30.5-36.0 [facility] Comment on above: Order Comment: Speci men Type: BLOOD SPECIMENOrdering Facility: [facility] Address: [address] Performed By: #### 5 8410-2 ####[facility] [id number] [address] [place] MCV (RBC) [Entitic vol] 77.8 fL Low 80.0-100.0 [facility] Comment on above: Order Comment: Speci men Type: BLOOD SPECIMENOrdering Facility: [facility] Address: [address] Performed By: #### 5 8410-2 ####[facility] [id number] [address] [place] Nucleated RBC (Bld) [#/Vol] 10*3/uL Normal <0.01 [facility] Comment on above: Order Comment: Speci men Type: BLOOD SPECIMENOrdering Facility: [facility] Address: [address] [place] [address] Performed By: #### 5 8410-2 ####[facility] LABCLIA [id number] [place] [address] [place] Platelet mean volume (Bld) [Entitic vol] 10.0 fL Normal 9.0-12.7 [facility] Comment on above: Order Comment: Speci men Type: BLOOD SPECIMENOrdering Facility: [facility] Address: [address] [place] [address] Performed By: #### 5 8410-2 ####[facility] LABIA [id number] [place] [address] [place] Platelets (Bld) [#/Vol] 294 10*3/uL Normal 150-400 [facility] Comment on above: Order Comment: Speci men Type: BLOOD SPECIMENOrdering Facility: [facility] Address: [address] [place], [place] [address] Performed By: #### 5 8410-2 ####[facility] LABIA [id number] [place] [address] [place] RBC (Bld) [#/Vol] 4.46 10*6/uL Normal 4.20-6.00 [facility] Comment on above: Order Comment: Speci men Type: BLOOD SPECIMENOrdering Facility: [facility] Address: [address] [place] [address] Performed By: #### 5 8410-2 ####[facility] LABCLIA [id number] [place] [address] [place] WBC (Bld) [#/Vol] 8.80 10*3/uL Normal 3.70-11.00 [facility] Comment on above: Order Comment: Speci men Type: BLOOD SPECIMENOrdering Facility: [facility] Address: [address] [place] [address] Performed By: #### 5 8410-2 ####[facility] LABCLIA [id number] [place] [address] [place] CONSULT PROGon 04-08-2023 CONSULT PROG Normal [facility] Comprehensive metabolic 2000 panelon 04-08-2023 Albumin [Mass/Vol] 3.6 g/dL Low 3.9-4.9 [facility] Comment on above: Order Comment: Speci men Type: BLOOD SPECIMENOrdering Facility: [facility] Address: [address] Performed By: #### 2 432-8, ####[facility] LABCLIA [id number] [place] [address] [place] ALP [Catalytic activity/Vol] 182 U/L High 38-113 [facility] Comment on above: Order Comment: Speci men Type: BLOOD SPECIMENOrdering Facility: [facility] Address: [address] [place] [address] Performed By: #### 2 8, ####[facility] LABIA [id number] [place] [address] [place] ALT [Catalytic activity/Vol] 33 U/L Normal 10-54 [facility] Comment on above: Order Comment: Speci men Type: BLOOD SPECIMENOrdering Facility: [facility] Address: [address] [place], [place] [address] Performed By: #### 2 4323-03, ####[facility] LABCLIA [id number] [place] [address] [place] Anion gap [Moles/Vol] 15 mmol/L Normal 9-18 [facility] Comment on above: Order Comment: Speci men Type: BLOOD SPECIMENOrdering Facility: [facility] Address: [address] Performed By: #### 2 432-8, ####[facility] LABCLIA [id number] [place] [address] [place] AST [Catalytic activity/Vol] 31 U/L Normal 14-40 [facility] Comment on above: Order Comment: Speci men Type: BLOOD SPECIMENOrdering Facility: [facility] Address: [address] [place] [address] Performed By: #### 2 4323-8, ####[facility] LABCLIA [id number] [place] [address] [place] Bilirubin [Mass/Vol] 1.0 mg/dL Normal 0.2-1.3 [facility] Comment on above: Order Comment: Speci men Type: BLOOD SPECIMENOrdering Facility: [facility] Address: [address] [place] [address] Performed By: #### 2 432-8, ####[facility] LABCLIA [id number] [place] [address] [place] Calcium [Mass/Vol] 9.6 mg/dL Normal 8.5-10.2 [facility] Comment on above: Order Comment: Speci men Type: BLOOD SPECIMENOrdering Facility: [facility] Address: [address] [place] [address] Performed By: #### 2 432-8, ####[facility] LABCLIA [id number] [place] [address] [place] Chloride [Moles/Vol] 92 mmol/L Low 97-105 [facility] Comment on above: Order Comment: Speci men Type: BLOOD SPECIMENOrdering Facility: [facility] Address: [address] [place], [place] [address] Performed By: #### 2 432-8, ####[facility] LABCLIA [id number] [place] [address] [place] CO2 [Moles/Vol] 22 mmol/L Normal 22-30 [facility] Comment on above: Order Comment: Speci men Type: BLOOD SPECIMENOrdering Facility: [facility] Address: [address] Performed By: #### 2 432[address]-12, ####[facility] LABCLIA [id number] [facility] [address] [place] Creatinine [Mass/Vol] 2.44 mg/dL High 0.73-1.22 [facility] Comment on above: Order Comment: Speci men Type: BLOOD SPECIMENOrdering Facility: [facility] Address: [address] Performed By: #### 2 4323-03, ####[facility] LABCL[facility] [id number] [place] [address] [place] Creatinine and Glomerular filtration rate.predicted panel (S/P/Bld) 29 mL/min/1.73m??? Low >=60 [facility] Comment on above: Order Comment: Speci men Type: BLOOD SPECIMENOrdering Facility: [facility] Address: [address] Result Comment: Syl mated Glomerular Filtration Rate [...] actual GFR. Performed By: #### 2 4328, ####[facility]CL[facility] [id number] [place] [address] [place] Glucose [Mass/Vol] 192 mg/dL High 74-99 [facility] Comment on above: Order Comment: Speci men Type: BLOOD SPECIMENOrdering Facility: [facility] Address: [address] Result Comment: The [place] [employer] (ADA) provides guidance for cutoff [...] Standards of Medical Care in Diabetes 2016, [place] [employer]. Diabetes Care. 2016.39(Suppl 1). Performed By: #### 2 4323-8, ####[facility] LABIA [id number] [place] [address] [place] Potassium [Moles/Vol] 4.8 mmol/L Normal 3.7-5.1 [facility] Comment on above: Order Comment: Speci men Type: BLOOD SPECIMENOrdering Facility: [facility] Address: [address] [place] [address] Performed By: #### 2 4323-03, ####[facility] LABIA [id number] [place] [address] [place] Protein [Mass/Vol] 6.8 g/dL Normal 6.3-8.0 [facility] Comment on above: Order Comment: Speci men Type: BLOOD SPECIMENOrdering Facility: [facility] Address: [address] Performed By: #### 2 4323-03, ####[facility]CL[facility] [id number] [place] [address] [place] Sodium [Moles/Vol] 129 mmol/L Low 136-144 [facility] Comment on above: Order Comment: Speci men Type: BLOOD SPECIMENOrdering Facility: [facility] Address: [address] Performed By: #### 2 4323-8, ####[facility]CL[facility] [id number] [place] [address] [place] Urea nitrogen [Mass/Vol] 58 mg/dL High 9-24 [facility] Comment on above: Order Comment: Joseline clemons Type: BLOOD SPECIMENOrdering Facility: [facility] Address: [address] [place], [place] [address] Performed By: #### 2 4323-8, ####[facility] LABCLIA [id number] [address] [place] Magnesium SerPl-mCncon 04-08 Magnesium [Mass/Vol] 2.8 mg/dL High 1.7-2.3 [facility] Comment on above: Order Comment: Joseline clemons Type: BLOOD SPECIMENOrdering Facility: [facility] Address: [address] [place] [address] Performed By: #### 2 43238, ####[facility] LABIA [id number] [address] [place] PT panel Coag (PPP)on 2022 INR Coag (PPP) [Relative time] 1.2 {INR} Normal 0.9-1.3 [facility] Comment on above: Order Comment: Jsoeline clemons Type: BLOOD SPECIMENOrdering Facility: [facility] Address: [address] [place] [address] Result Comment: Baylee min K Antagonist (VKA) Therapeutic Range: INR 2 to 3 (Target INR of 2.5)Note: For patients treated with VKA drugs, such as warfarin, the [place] [employer] 2012 Guideline recommends [...] al. Chest 2012, 141:7S-47STrudy RA, et al. [facility] 2017, 70: 252-289 Performed By: #### 3 4528-0 ####[facility] LABIA [id number] [place] [address] [place] PT Coag (PPP) [Time] 11.9 s Normal 9.7-13.0 [facility] Comment on above: Order Comment: Speci men Type: BLOOD SPECIMENOrdering Facility: [facility] Address: [address] [place] [address] Performed By: #### 3 4528-0 ####[facility] [id number] [address] [place] CASE MANAGEMon 04-07-2023 CASE MANAGEM Normal [facility] CBC panel Auto (Bld)on 04-07 Erythrocyte distribution width (RBC) [Ratio] 20.6 % High 11.5-15.0 [facility] Comment on above: Order Comment: Speci men Type: BLOOD SPECIMENOrdering Facility: [facility] Address: [address] [place] [address] Performed By: #### 5 8410-2 ####[facility] [id number] [address] [place] [facility] Hematocrit (Bld) [Volume fraction] 35.8 % Low 39.0-51.0 [facility] Comment on above: Order Comment: Speci men Type: BLOOD SPECIMENOrdering Facility: [facility] Address: [address] [address] Performed By: #### 5 8410-2 ####[facility] LABIA [id number] [place] [address] [place] Hemoglobin (Bld) [Mass/Vol] 10.9 g/dL Low 13.0-17.0 [facility] Comment on above: Order Comment: Speci men Type: BLOOD SPECIMENOrdering Facility: [facility] Address: [address] [place] [address] Performed By: #### 5 8410-2 ####[facility] LABCLIA [id number] [address] STATES [place] [facility] MCH (RBC) [Entitic mass] 24.4 pg Low 26.0-34.0 [facility] Comment on above: Order Comment: Speci men Type: BLOOD SPECIMENOrdering Facility: [facility] Address: [address] [place] [address] Performed By: #### 5 8410-2 ####[facility] LABIA [id number] [address] [place] MCHC (RBC) [Mass/Vol] 30.4 g/dL Low 30.5-36.0 [facility] Comment on above: Order Comment: Speci men Type: BLOOD SPECIMENOrdering Facility: [facility] Address: [address] [place] [address] Performed By: #### 5 8410-2 ####[facility] LABIA [id number] [place] [address] [place] MCV (RBC) [Entitic vol] 80.3 fL Normal 80.0-100.0 [facility] Comment on above: Order Comment: Speci men Type: BLOOD SPECIMENOrdering Facility: [facility] Address: [address] [place], [place] [address] Performed By: #### 5 8410-2 ####[facility] LABCLIA [id number] [address] [place] Nucleated RBC (Bld) [#/Vol] 10*3/uL Normal <0.01 [facility] Comment on above: Order Comment: Speci men Type: BLOOD SPECIMENOrdering Facility: [facility] Address: [address] [place], [place] [address] Performed By: #### 5 8410-2 ####[facility] LABCLIA [id number] [place] [address] [place] Platelet mean volume (Bld) [Entitic vol] 10.4 fL Normal 9.0-12.7 [facility] Comment on above: Order Comment: Speci men Type: BLOOD SPECIMENOrdering Facility: [facility] Address: [address] [place], [place] [address] Performed By: #### 5 8410-2 ####[facility] LABCLIA [id number] [place] [address] [place] Platelets (Bld) [#/Vol] 298 10*3/uL Normal 150-400 [facility] Comment on above: Order Comment: Speci men Type: BLOOD SPECIMENOrdering Facility: [facility] Address: [address] [place] [address] Performed By: #### 5 8410-2 ####[facility] LABIA [id number] [place] [address] [place] RBC (Bld) [#/Vol] 4.46 10*6/uL Normal 4.20-6.00 [facility] Comment on above: Order Comment: Speci men Type: BLOOD SPECIMENOrdering Facility: [facility] Address: [address] [place], [place] [address] Performed By: #### 5 8410-2 ####[facility] LABIA [id number] [place] [address] [place] WBC (Bld) [#/Vol] 8.02 10*3/uL Normal 3.70-11.00 [facility] Comment on above: Order Comment: Speci men Type: BLOOD SPECIMENOrdering Facility: [facility] Address: [address] [place], [place] [address] Performed By: #### 5 8410-2 ####[facility] LABIA [id number] [place] [address] [place] CONSULTon 04-07-2023 CONSULT Normal [facility] Comprehensive metabolic 2000 panelon 04-07-2023 Albumin [Mass/Vol] 3.6 g/dL Low 3.9-4.9 [facility] Comment on above: Order Comment: Speci men Type: BLOOD SPECIMENOrdering Facility: [facility] Address: [address] [place], [place] [address] Performed By: #### 2 4323-8, ####[facility] LABIA [id number] [place] [address] [place] ALP [Catalytic activity/Vol] 171 U/L High 38-113 [facility] Comment on above: Order Comment: Speci men Type: BLOOD SPECIMENOrdering Facility: [facility] Address: [address] [place], [place] [address] Performed By: #### 2 4323-8, ####[facility] LABIA [id number] [place] [address] [place] ALT [Catalytic activity/Vol] 24 U/L Normal 10-54 [facility] Comment on above: Order Comment: Speci men Type: BLOOD SPECIMENOrdering Facility: [facility] Address: [address] [place], [place] [address] Performed By: #### 2 4323-8, ####[facility] LABIA [id number] [place] [address] [place] Anion gap [Moles/Vol] 14 mmol/L Normal 9-18 [facility] Comment on above: Order Comment: Speci men Type: BLOOD SPECIMENOrdering Facility: [facility] Address: [address] [place], [place] [address] Performed By: #### 2 8, ####[facility] LABCLIA [id number] [place] [address] [place] AST [Catalytic activity/Vol] 28 U/L Normal 14-40 [facility] Comment on above: Order Comment: Speci men Type: BLOOD SPECIMENOrdering Facility: [facility] Address: [address] [place] [address] Performed By: #### 2 8, ####[facility] LABCLIA [id number] [place] [address] [place] Bilirubin [Mass/Vol] 1.1 mg/dL Normal 0.2-1.3 [facility] Comment on above: Order Comment: Speci men Type: BLOOD SPECIMENOrdering Facility: [facility] Address: [address] [address] Performed By: #### 2 4323-03, ####[facility] LABIA [id number] [place] [address] [place] Calcium [Mass/Vol] 9.5 mg/dL Normal 8.5-10.2 [facility] Comment on above: Order Comment: Speci men Type: BLOOD SPECIMENOrdering Facility: [facility] Address: [address] [address] Performed By: #### 2 8, ####[facility] LABIA [id number] [place] [address] [place] Chloride [Moles/Vol] 92 mmol/L Low 97-105 [facility] Comment on above: Order Comment: Speci men Type: BLOOD SPECIMENOrdering Facility: [facility] Address: [address] [address] Performed By: #### 2 432-8, ####[facility] LABCLIA [id number] [place] [address] [place] CO2 [Moles/Vol] 22 mmol/L Normal 22-30 [facility] Comment on above: Order Comment: Speci men Type: BLOOD SPECIMENOrdering Facility: [facility] Address: [address] [place] [address] Performed By: #### 2 4323-8, ####[facility] LABCLIA [id number] [address] [place] Creatinine [Mass/Vol] 2.30 mg/dL High 0.73-1.22 [facility] Comment on above: Order Comment: Speci men Type: BLOOD SPECIMENOrdering Facility: [facility] Address: [address] [place] [address] Performed By: #### 2 43238, ####[facility] LABIA [id number] [address] [place] [facility] Creatinine and Glomerular filtration rate.predicted panel (S/P/Bld) 31 mL/min/1.73m??? Low >=60 [facility] Comment on above: Order Comment: Speci men Type: BLOOD SPECIMENOrdering Facility: [facility] Address: [address] [place] [address] Result Comment: Syl mated Glomerular Filtration Rate [...] actual GFR. Performed By: #### 2 4323-8, ####[facility] LABCLIA [id number] [place] [address] [place] Glucose [Mass/Vol] 203 mg/dL High 74-99 [facility] Comment on above: Order Comment: Speci men Type: BLOOD SPECIMENOrdering Facility: [facility] Address: [address] [id number] Result Comment: The [place] [employer] (ADA) provides guidance for cutoff [...] Standards of Medical Care in Diabetes 2016, [place] [employer]. Diabetes Care. 2016.39(Suppl 1). Performed By: #### 2 4323-8, ####[facility] LABCLIA [id number] [place] [address] [place] Potassium [Moles/Vol] 5.1 mmol/L Normal 3.7-5.1 [facility] Comment on above: Order Comment: Speci men Type: BLOOD SPECIMENOrdering Facility: [facility] Address: [address] [place], [place] [address] Performed By: #### 2 4323-03, ####[facility] LABCLIA [id number] [place] [address] [place] Protein [Mass/Vol] 7.2 g/dL Normal 6.3-8.0 [facility] Comment on above: Order Comment: Speci men Type: BLOOD SPECIMENOrdering Facility: [facility] Address: [address] [place], [place] [address] Performed By: #### 2 4323-03, ####[facility] LABCLIA [id number] [place] [address] [place] Sodium [Moles/Vol] 128 mmol/L Low 136-144 [facility] Comment on above: Order Comment: Speci men Type: BLOOD SPECIMENOrdering Facility: [facility] Address: [address] [phone] Performed By: #### 2 4323-8, ####[facility] [id number] [place] [address] [place] Urea nitrogen [Mass/Vol] 56 mg/dL High 9-24 [facility] Comment on above: Order Comment: Speci men Type: BLOOD SPECIMENOrdering Facility: [facility] Address: [address] [address] Performed By: #### 2 4323-8, ####[facility] [id number] [address] [place] ICD CLINIC CHECKon 3 AV Delay Adaptive Paced Minimum (ms) 140 ms [facility] AV Delay Adaptive Sensed Minimum (ms) 100 ms [facility] Federico LV Pacing Amplitude (volts) 3.5 V [facility] Federico LV Pacing Pulse Width (ms) 0.5 ms [facility] federico LV Sensing Amplitude (mvolts) 1.0 mV [facility] Federico RA Pacing Amplitude (volts) 5.0 V [facility] Federico RA Pacing Polarity BI [facility] Federico RA Pacing Pulse Width (ms) 0.4 ms [facility] Federico RA Sensing Amplitude (mvolts) 0.25 mV [facility] Federico RA Sensing Polarity BI [facility] Federico RV Pacing Amplitude (volts) 2.0 V [facility] Federico RV Pacing Polarity BI [facility] Federico RV Pacing Pulse Width (ms) 0.4 ms [facility] Federico RV Sensing Amplitude (mvolts) 0.3 mV [facility] Federico RV Sensing Polarity BI [facility] Detection Configuration (Vent) 2 - Zone [facility] FastVT_Detection Interval 300 ms [facility] FastVT_Therapy Configuration 1 ATP(s) + 8 Shock(s) [facility] ICD FastVT DetectionStatus ENABLED [facility] ICD-AMS EPISODES 170 {beats}/min [facility] ICD-ATP Episodes (Vent) 0 [facility] ICD-ATRIALFIBRILLATIO N 0 [facility] ICD-Device Mfg BSX [facility] ICD-LEADIMPEDANCEATRI AL 751 ohm [facility] ICD-Percent Pacing (Atrial) 2 % [facility] ICD-Percent Pacing (Vent) 4 % [facility] ICD-Rhythm Sinus Rhythm with frequent PVCs/bigeminy [facility] ICD-Shocks Aborted (Vent) 0 [facility] RLW-YRAYWN-IEFCTTUTT 0 [facility] ICD-SHOCKSABORTED 0 [facility] ICD-SHOCKSDELIVEREDVE NTRICULAR 0 [facility] ICD-Ventricular Fibrillation 0 [facility] Implant Date 10/18/2017 [facility] Lead Impedance (LV) 1039 ohm [facility] Lead Impedance (RV) 513 ohm [facility] Lead Impedance High Voltage 78 ohm [facility] Lead1 Mfg BSX [facility] Lead2 Mfg BSX [facility] Lead3 Mfg BSX [facility] Location LV [facility] Location RA [facility] Location RV [facility] Lower Rate (bpm) 60 {beats}/min [facility] LV PACING % 91 % [facility] Max Sensor Rate (bpm) 130 {beats}/min [facility] MDT_PROG_TACHY_ZONE_D ETECTIONS_STATUS ENABLED [facility] Model G247 VIGILANT X4 LAYOUT MAN-D Cl [facility] Model 4671 Acuity X4 Straight C [facility] Model 7841 Ingevity + MRI [facility] Model 0292 [place]otak Relianc e 4-Site SG [facility] Pacemaker Dependent? NO [facility] Pacing Mode DDD [facility] Serial Number [id number] [facility] Serial Number [id number] [facility] Serial Number [id number] [facility] Serial Number [id number] [facility] Test Charge Time 9.9 s [facility] Therapy Status (Vent) Enabled [facility] Thresh LV Capture Amplitude (volts) 1.8 V [facility] Thresh LV Capture Duration (ms) 0.5 ms [facility] Thresh RA Capture Amplitude (volts) 0.6 V [facility] Thresh RA Capture Duration (ms) 0.4 ms [facility] Thresh RV Capture Amplitude (VOLTS) 0.6 V [facility] Thresh RV Capture Duration (MS) 0.4 ms [facility] Tracking Rate (bpm) 130 {beats}/min [facility] VF Zone Detection Interval 300 ms [facility] VF Zone Therapy Configuration 1 ATP(s) + 8 Shock(s) [facility] Magnesium SerPl-mCncon 04-07 Magnesium [Mass/Vol] 2.6 mg/dL High 1.7-2.3 [facility] Comment on above: Order Comment: Speci men Type: BLOOD SPECIMENOrdering Facility: [facility] Address: [address] [place] [address] Performed By: #### 2 4323-8, 23694-7 ####[facility] LABCLIA [id number] [address] [place] No Panel Informationon 04-07 BLANK _ [facility] ICD-Fast Ventricular Tachycardia 0 [facility] Implant Date 03/31/2023 [facility] POTASSIUM BLDon 04-07-2023 Potassium [Moles/Vol] 5.0 mmol/L Normal 3.7-5.1 [facility] Comment on above: Order Comment: Speci men Type: BLOOD SPECIMENOrdering Facility: [facility] Address: [address] [place] [address] Performed By: #### K 1 ####[facility] LABCLIA [id number] [address] [place] CBC panel Auto (Bld)on 04-06 Erythrocyte distribution width (RBC) [Ratio] 20.1 % High 11.5-15.0 [facility] Comment on above: Order Comment: Speci men Type: BLOOD SPECIMENOrdering Facility: [facility] Address: [address] [place] [address] Performed By: #### 5 8410-2 ####[facility] LABCLIA [id number] [address] [place] Hematocrit (Bld) [Volume fraction] 33.3 % Low 39.0-51.0 [facility] Comment on above: Order Comment: Speci men Type: BLOOD SPECIMENOrdering Facility: [facility] Address: [address] [place] [address] Performed By: #### 5 8410-2 ####[facility] [id number] [place] [address] [place] [facility] Hemoglobin (Bld) [Mass/Vol] 10.3 g/dL Low 13.0-17.0 [facility] Comment on above: Order Comment: Speci men Type: BLOOD SPECIMENOrdering Facility: [facility] Address: [address] [place] [address] Performed By: #### 5 8410-2 ####[facility] [id number] [address] [place] MCH (RBC) [Entitic mass] 24.6 pg Low 26.0-34.0 [facility] Comment on above: Order Comment: Speci men Type: BLOOD SPECIMENOrdering Facility: [facility] Address: [address] [place] [address] Performed By: #### 5 8410-2 ####[facility] [id number] [address] STATES [facility] MCHC (RBC) [Mass/Vol] 30.9 g/dL Normal 30.5-36.0 [facility] Comment on above: Order Comment: Speci men Type: BLOOD SPECIMENOrdering Facility: [facility] Address: [address] [place] [address] Performed By: #### 5 8410-2 ####[facility] [id number] [place] [address] [place] MCV (RBC) [Entitic vol] 79.5 fL Low 80.0-100.0 [facility] Comment on above: Order Comment: Speci men Type: BLOOD SPECIMENOrdering Facility: [facility] Address: [address] [place] [address] Performed By: #### 5 8410-2 ####[facility] [id number] [place] [address] [place] Nucleated RBC (Bld) [#/Vol] 10*3/uL Normal <0.01 [facility] Comment on above: Order Comment: Speci men Type: BLOOD SPECIMENOrdering Facility: [facility] Address: [address] [place], [place] [address] Performed By: #### 5 8410-2 ####[facility] LABCLIA [id number] [place] [address] [place] Platelet mean volume (Bld) [Entitic vol] 10.7 fL Normal 9.0-12.7 [facility] Comment on above: Order Comment: Speci men Type: BLOOD SPECIMENOrdering Facility: [facility] Address: [address] [place], [place] [address] Performed By: #### 5 8410-2 ####[facility] LABCLIA [id number] [place] [address] [place] Platelets (Bld) [#/Vol] 305 10*3/uL Normal 150-400 [facility] Comment on above: Order Comment: Speci men Type: BLOOD SPECIMENOrdering Facility: [facility] Address: [address] [place], [place] [address] Performed By: #### 5 8410-2 ####[facility] LABCLIA [id number] [place] [address] [place] RBC (Bld) [#/Vol] 4.19 10*6/uL Low 4.20-6.00 [facility] Comment on above: Order Comment: Speci men Type: BLOOD SPECIMENOrdering Facility: [facility] Address: [address] [place], [place] [address] Performed By: #### 5 8410-2 ####[facility] LABCLIA [id number] [place] [address] [place] WBC (Bld) [#/Vol] 7.31 10*3/uL Normal 3.70-11.00 [facility] Comment on above: Order Comment: Speci men Type: BLOOD SPECIMENOrdering Facility: [facility] Address: [address] [address] Performed By: #### 5 8410-2 ####[facility] LABCLIA [id number] [place] [address] [place] Comprehensive metabolic 2000 panelon 04-06-2023 Albumin [Mass/Vol] 3.0 g/dL Low 3.9-4.9 [facility] Comment on above: Order Comment: Speci men Type: BLOOD SPECIMENOrdering Facility: [facility] Address: [address] [place] [address] Performed By: #### 1 9123-9, 59415-4 ####[facility] LABIA [id number] [place] [address] [place] ALP [Catalytic activity/Vol] 142 U/L High 38-113 [facility] Comment on above: Order Comment: Speci men Type: BLOOD SPECIMENOrdering Facility: [facility] Address: [address] [place] [address] Performed By: #### 1 9123-9, 61263-7 ####[facility] LABIA [id number] [address] [place] ALT [Catalytic activity/Vol] 18 U/L Normal 10-54 [facility] Comment on above: Order Comment: Speci men Type: BLOOD SPECIMENOrdering Facility: [facility] Address: [address] Performed By: #### 1 9123-9, 82488-5 ####[facility] LABIA [id number] [place] [address] [place] Anion gap [Moles/Vol] 12 mmol/L Normal 9-18 [facility] Comment on above: Order Comment: Speci men Type: BLOOD SPECIMENOrdering Facility: [facility] Address: [address] [address] Performed By: #### 1 9123-9, 75640-5 ####[facility] LABCLIA [id number] [place] [address] [place] AST [Catalytic activity/Vol] 29 U/L Normal 14-40 [facility] Comment on above: Order Comment: Speci men Type: BLOOD SPECIMENOrdering Facility: [facility] Address: [address] [address] Result Comment: Resu lts may be falsely increased due to interference from hemolysis. Suggest reorder as clinically indicated. Performed By: #### 1 9123-9, 63315-0 ####[facility] LABIA [id number] [place] [address] [place] Bilirubin [Mass/Vol] 1.0 mg/dL Normal 0.2-1.3 [facility] Comment on above: Order Comment: Speci men Type: BLOOD SPECIMENOrdering Facility: [facility] Address: [address] Performed By: #### 1 9123-9, ####[facility] LABIA [id number] [place] [address] [place] Calcium [Mass/Vol] 8.7 mg/dL Normal 8.5-10.2 [facility] Comment on above: Order Comment: Speci men Type: BLOOD SPECIMENOrdering Facility: [facility] Address: [address] Performed By: #### 1 9123-9, ####[facility] LABIA [id number] [place] [address] [place] Chloride [Moles/Vol] 96 mmol/L Low 97-105 [facility] Comment on above: Order Comment: Speci men Type: BLOOD SPECIMENOrdering Facility: [facility] Address: [address] Performed By: #### 1 239, ####[facility] LABCLIA [id number] [place] [address] [place] CO2 [Moles/Vol] 21 mmol/L Low 22-30 [facility] Comment on above: Order Comment: Speci men Type: BLOOD SPECIMENOrdering Facility: [facility] Address: [address] [place] [address] Performed By: #### 1 9123-04, ####[facility] LABCLIA [id number] [place] [address] [place] Creatinine [Mass/Vol] 2.08 mg/dL High 0.73-1.22 [facility] Comment on above: Order Comment: Speci men Type: BLOOD SPECIMENOrdering Facility: [facility] Address: [address] [place] [address] Performed By: #### 1 9123-04, ####[facility] LABIA [id number] [place] [address] [place] Creatinine and Glomerular filtration rate.predicted panel (S/P/Bld) 35 mL/min/1.73m??? Low >=60 [facility] Comment on above: Order Comment: Speci men Type: BLOOD SPECIMENOrdering Facility: [facility] Address: [address] [place] [address] Result Comment: Syl mated Glomerular Filtration Rate [...] reflect actual GFR. Performed By: #### 1 239, ####[facility] LABCLIA [id number] [place] [address] [place] Glucose [Mass/Vol] 174 mg/dL High 74-99 [facility] Comment on above: Order Comment: Speci men Type: BLOOD SPECIMENOrdering Facility: [facility] Address: [address] [place], [place] [address] Result Comment: The [place] [employer] (ADA) provides guidance for cutoff [...] Standards of Medical Care in Diabetes 2016, [place] [employer]. Diabetes Care. 2016.39(Suppl 1). Performed By: #### 1 9123-9, 99204-7 ####[facility] LABCLIA [id number] [place] [address] [place] Potassium [Moles/Vol] 4.9 mmol/L Normal 3.7-5.1 [facility] Comment on above: Order Comment: Joseline clemons Type: BLOOD SPECIMENOrdering Facility: [facility] Address: [address] [place], [place] [address] Performed By: #### 1 9123-9, 87633-2 ####[facility] LABCLIA [id number] [place] [address] [place] Protein [Mass/Vol] 5.9 g/dL Low 6.3-8.0 [facility] Comment on above: Order Comment: Joseline clemons Type: BLOOD SPECIMENOrdering Facility: [facility] Address: [address] [place], [place] [address] Performed By: #### 1 9123-9, 04460-2 ####[facility] LABCLIA [id number] [place] [address] [place] Sodium [Moles/Vol] 129 mmol/L Low 136-144 [facility] Comment on above: Order Comment: Speci men Type: BLOOD SPECIMENOrdering Facility: [facility] Address: [address] [place], [place] [address] Performed By: #### 1 9123-9, 79713-6 ####[facility] LABCLIA [id number] [place] [address] [place] Urea nitrogen [Mass/Vol] 55 mg/dL High 9-24 [facility] Comment on above: Order Comment: Speci men Type: BLOOD SPECIMENOrdering Facility: [facility] Address: [address] [place] [address] Performed By: #### 1 9123-9, 63350-3 ####[facility] LABCLIA [id number] [place] [address] [place] Magnesium SerPl-mCncon 04-06 Magnesium [Mass/Vol] 2.5 mg/dL High 1.7-2.3 [facility] Comment on above: Order Comment: Speci men Type: BLOOD SPECIMENOrdering Facility: [facility] Address: [address] [place], [place] [address] Performed By: #### 1 9123-9, 17195-0 ####[facility] LABCLIA [id number] [place] [id number] [place] POTASSIUM BLDon 04-06-2023 Potassium [Moles/Vol] 5.1 mmol/L Normal 3.7-5.1 [facility] Comment on above: Order Comment: Speci men Type: BLOOD SPECIMENOrdering Facility: [facility] Address: [address] [place], [place] [address] Performed By: #### K 1 ####[facility] LABCLIA [id number] [place] [id number] [place] CASE MANAGEMon 04-05-2023 CASE MANAGEM Normal [facility] CBC panel Auto (Bld)on 04-05 Erythrocyte distribution width (RBC) [Ratio] 20.1 % High 11.5-15.0 [facility] Comment on above: Order Comment: Speci men Type: BLOOD SPECIMENOrdering Facility: [facility] Address: [address] [place] [address] Performed By: #### 5 8410-2 ####[facility] LABIA [id number] [address] [place] [facility] Hematocrit (Bld) [Volume fraction] 33.3 % Low 39.0-51.0 [facility] Comment on above: Order Comment: Speci men Type: BLOOD SPECIMENOrdering Facility: [facility] Address: [address] [place] [address] Performed By: #### 5 8410-2 ####[facility] LABIA [id number] [address] [place] Hemoglobin (Bld) [Mass/Vol] 10.5 g/dL Low 13.0-17.0 [facility] Comment on above: Order Comment: Speci men Type: BLOOD SPECIMENOrdering Facility: [facility] Address: [address] [place] [address] Performed By: #### 5 8410-2 ####[facility] LABIA [id number] [place] [address] [place] MCH (RBC) [Entitic mass] 24.8 pg Low 26.0-34.0 [facility] Comment on above: Order Comment: Speci men Type: BLOOD SPECIMENOrdering Facility: [facility] Address: [address] [place] [address] Performed By: #### 5 8410-2 ####[facility] LABCLIA [id number] [place] [address] [place] MCHC (RBC) [Mass/Vol] 31.5 g/dL Normal 30.5-36.0 [facility] Comment on above: Order Comment: Speci men Type: BLOOD SPECIMENOrdering Facility: [facility] Address: [address] Performed By: #### 5 8410-2 ####[facility] LABIA [id number] [place] [address] [place] MCV (RBC) [Entitic vol] 78.7 fL Low 80.0-100.0 [facility] Comment on above: Order Comment: Speci men Type: BLOOD SPECIMENOrdering Facility: [facility] Address: [address] Performed By: #### 5 8410-2 ####[facility] [id number] [place] [address] [place] Nucleated RBC (Bld) [#/Vol] 10*3/uL Normal <0.01 [facility] Comment on above: Order Comment: Speci men Type: BLOOD SPECIMENOrdering Facility: [facility] Address: [address] Performed By: #### 5 8410-2 ####[facility] [id number] [place] [address] [place] Platelet mean volume (Bld) [Entitic vol] 10.3 fL Normal 9.0-12.7 [facility] Comment on above: Order Comment: Speci men Type: BLOOD SPECIMENOrdering Facility: [facility] Address: [address] [place] [address] Performed By: #### 5 8410-2 ####[facility] LABIA [id number] [place] [address] [place] Platelets (Bld) [#/Vol] 295 10*3/uL Normal 150-400 [facility] Comment on above: Order Comment: Speci men Type: BLOOD SPECIMENOrdering Facility: [facility] Address: [address] [place] [address] Performed By: #### 5 8410-2 ####[facility] LABCLIA [id number] [address] RBC (Bld) [#/Vol] 4.23 10*6/uL Normal 4.20-6.00 [facility] Comment on above: Order Comment: Speci men Type: BLOOD SPECIMENOrdering Facility: [facility] Address: [address] Performed By: #### 5 8410-2 ####[facility] LABCLIA [id number] [address] WBC (Bld) [#/Vol] 8.11 10*3/uL Normal 3.70-11.00 [facility] Comment on above: Order Comment: Speci men Type: BLOOD SPECIMENOrdering Facility: [facility] Address: [address] Performed By: #### 5 8410-2 ####[facility] LABCLIA [id number] [place] [address] [place] Comprehensive metabolic 2000 panelon 04-05-2023 Albumin [Mass/Vol] 3.2 g/dL Low 3.9-4.9 [facility] Comment on above: Order Comment: Speci men Type: BLOOD SPECIMENOrdering Facility: [facility] Address: [address] [place] [address] Performed By: #### 2 4323-8 ####[facility] LABCLIA [id number] [place] [address] [place] ALP [Catalytic activity/Vol] 151 U/L High 38-113 [facility] Comment on above: Order Comment: Speci men Type: BLOOD SPECIMENOrdering Facility: [facility] Address: [address] Performed By: #### 2 4323-8 ####[facility] LABCLIA [id number] [place] [address] [place] ALT [Catalytic activity/Vol] 18 U/L Normal 10-54 [facility] Comment on above: Order Comment: Speci men Type: BLOOD SPECIMENOrdering Facility: [facility] Address: [address] [place] [address] Performed By: #### 2 4323-8 ####[facility] LABCLIA [id number] [place] [address] [place] Anion gap [Moles/Vol] 13 mmol/L Normal 9-18 [facility] Comment on above: Order Comment: Speci men Type: BLOOD SPECIMENOrdering Facility: [facility] Address: [address] [place] [address] Performed By: #### 2 4323-8 ####[facility] LABCLIA [id number] [place] [address] [place] AST [Catalytic activity/Vol] 20 U/L Normal 14-40 [facility] Comment on above: Order Comment: Speci men Type: BLOOD SPECIMENOrdering Facility: [facility] Address: [address] [place] [address] Performed By: #### 2 4323-8 ####[facility] LABCLIA [id number] [place] [address] [place] Bilirubin [Mass/Vol] 1.2 mg/dL Normal 0.2-1.3 [facility] Comment on above: Order Comment: Speci men Type: BLOOD SPECIMENOrdering Facility: [facility] Address: [address] [place] [address] Performed By: #### 2 4323-8 ####[facility] LABCLIA [id number] [place] [address] [place] Calcium [Mass/Vol] 9.0 mg/dL Normal 8.5-10.2 [facility] Comment on above: Order Comment: Speci men Type: BLOOD SPECIMENOrdering Facility: [facility] Address: [address] [place] [address] Performed By: #### 2 4323-8 ####[facility] LABCLIA [id number] [place] [address] [place] Chloride [Moles/Vol] 96 mmol/L Low 97-105 [facility] Comment on above: Order Comment: Speci men Type: BLOOD SPECIMENOrdering Facility: [facility] Address: [address] [place] [address] Performed By: #### 2 4323-8 ####[facility] LABCLIA [id number] [place] [address] [place] CO2 [Moles/Vol] 22 mmol/L Normal 22-30 [facility] Comment on above: Order Comment: Speci men Type: BLOOD SPECIMENOrdering Facility: [facility] Address: [address] [place] [address] Performed By: #### 2 4323-8 ####[facility] LABCLIA [id number] [place] [address] [place] Creatinine [Mass/Vol] 2.15 mg/dL High 0.73-1.22 [facility] Comment on above: Order Comment: Speci men Type: BLOOD SPECIMENOrdering Facility: [facility] Address: [address] Performed By: #### 2 4323-8 ####[facility] LABCLIA [id number] [place] [address] [place] Creatinine and Glomerular filtration rate.predicted panel (S/P/Bld) 33 mL/min/1.73m??? Low >=60 [facility] Comment on above: Order Comment: Speci men Type: BLOOD SPECIMENOrdering Facility: [facility] Address: [address] [place], [place] [address] Result Comment: Syl mated Glomerular Filtration Rate [...] actual GFR. Performed By: #### 2 4323-8 ####[facility] LABCLIA [id number] [place] [address] [place] Glucose [Mass/Vol] 208 mg/dL High 74-99 [facility] Comment on above: Order Comment: Joseline clemons Type: BLOOD SPECIMENOrdering Facility: [facility] Address: [address] [place] [address] Result Comment: The [place] [employer] (ADA) provides guidance for cutoff [...] Standards of Medical Care in Diabetes 2016, [place] [employer]. Diabetes Care. 2016.39(Suppl 1). Performed By: #### 2 4323-8 ####[facility] LABIA [id number] [place] [address] [place] Potassium [Moles/Vol] 4.4 mmol/L Normal 3.7-5.1 [facility] Comment on above: Order Comment: Joseline clemons Type: BLOOD SPECIMENOrdering Facility: [facility] Address: [address] [place] [address] Performed By: #### 2 4323-8 ####[facility] LABIA [id number] [place] [address] [place] Protein [Mass/Vol] 6.4 g/dL Normal 6.3-8.0 [facility] Comment on above: Order Comment: Speci men Type: BLOOD SPECIMENOrdering Facility: [facility] Address: [address] [place] [address] Performed By: #### 2 4323-8 ####[facility] LABCLIA [id number] [place] [address] [place] Sodium [Moles/Vol] 131 mmol/L Low 136-144 [facility] Comment on above: Order Comment: Speci men Type: BLOOD SPECIMENOrdering Facility: [facility] Address: [address] [place] [address] Performed By: #### 2 4323-8 ####[facility] LABCLIA [id number] [place] [address] [place] Urea nitrogen [Mass/Vol] 50 mg/dL High 9- [facility] Comment on above: Order Comment: Speci men Type: BLOOD SPECIMENOrdering Facility: [facility] Address: [address] [place], [place] [address] Performed By: #### 2 4323-8 ####[facility] LABCLIA [id number] [place] [address] [place] ECG COMPLETEon 04-05-2023 ECG COMPLETE Normal [facility] Magnesium SerPl-mCncon 04-05 Magnesium [Mass/Vol] 2.5 mg/dL High 1.7-2.3 [facility] Comment on above: Order Comment: Speci men Type: BLOOD SPECIMENOrdering Facility: [facility] Address: [address] Performed By: #### 1 9123-9 ####[facility] LABCLIA [id number] [place] [id number] [place] NUTRITIONon 04-05-2023 NUTRITION Normal [facility] CBC panel Auto (Bld)on 04-04 Erythrocyte distribution width (RBC) [Ratio] 20.0 % High 11.5-15.0 [facility] Comment on above: Order Comment: Speci men Type: BLOOD SPECIMENOrdering Facility: [facility] Address: [address] [place] [address] Performed By: #### 5 8410-2 ####[facility] LABIA [id number] [place] [address] [place] Hematocrit (Bld) [Volume fraction] 31.7 % Low 39.0-51.0 [facility] Comment on above: Order Comment: Speci men Type: BLOOD SPECIMENOrdering Facility: [facility] Address: [address] [place] [address] Performed By: #### 5 8410-2 ####[facility] LABIA [id number] [address] [place] Hemoglobin (Bld) [Mass/Vol] 9.9 g/dL Low 13.0-17.0 [facility] Comment on above: Order Comment: Speci men Type: BLOOD SPECIMENOrdering Facility: [facility] Address: [address] [place] [address] Performed By: #### 5 8410-2 ####[facility] LABIA [id number] [place] [address] [place] MCH (RBC) [Entitic mass] 24.5 pg Low 26.0-34.0 [facility] Comment on above: Order Comment: Speci men Type: BLOOD SPECIMENOrdering Facility: [facility] Address: [address] [place] [address] Performed By: #### 5 8410-2 ####[facility] LABIA [id number] [place] [address] [place] MCHC (RBC) [Mass/Vol] 31.2 g/dL Normal 30.5-36.0 [facility] Comment on above: Order Comment: Speci men Type: BLOOD SPECIMENOrdering Facility: [facility] Address: [address] Performed By: #### 5 8410-2 ####[facility] [id number] [address] [place] MCV (RBC) [Entitic vol] 78.5 fL Low 80.0-100.0 [facility] Comment on above: Order Comment: Speci men Type: BLOOD SPECIMENOrdering Facility: [facility] Address: [address] Performed By: #### 5 8410-2 ####[facility] [id number] [address] [place] Nucleated RBC (Bld) [#/Vol] 10*3/uL Normal <0.01 [facility] Comment on above: Order Comment: Speci men Type: BLOOD SPECIMENOrdering Facility: [facility] Address: [address] Performed By: #### 5 8410-2 ####[facility] [id number] [place] [address] [place] Platelet mean volume (Bld) [Entitic vol] 10.0 fL Normal 9.0-12.7 [facility] Comment on above: Order Comment: Speci men Type: BLOOD SPECIMENOrdering Facility: [facility] Address: [address] [place] [address] Performed By: #### 5 8410-2 ####[facility] LABIA [id number] [place] [address] [place] Platelets (Bld) [#/Vol] 258 10*3/uL Normal 150-400 [facility] Comment on above: Order Comment: Speci men Type: BLOOD SPECIMENOrdering Facility: [facility] Address: [address] Performed By: #### 5 8410-2 ####[facility] LABCLIA [id number] [place] [address] [place] RBC (Bld) [#/Vol] 4.04 10*6/uL Low 4.20-6.00 [facility] Comment on above: Order Comment: Speci men Type: BLOOD SPECIMENOrdering Facility: [facility] Address: [address] [place] [address] Performed By: #### 5 8410-2 ####[facility] LABIA [id number] [place] [address] [place] WBC (Bld) [#/Vol] 8.15 10*3/uL Normal 3.70-11.00 [facility] Comment on above: Order Comment: Speci men Type: BLOOD SPECIMENOrdering Facility: [facility] Address: [address] [place], [place] [address] Performed By: #### 5 8410-2 ####[facility] LABIA [id number] [place] [address] [place] CONSULT PROGon 04-04-2023 CONSULT PROG Normal [facility] Comprehensive metabolic 2000 panelon 04-04-2023 Albumin [Mass/Vol] 3.0 g/dL Low 3.9-4.9 [facility] Comment on above: Order Comment: Speci men Type: BLOOD SPECIMENOrdering Facility: [facility] Address: [address] [place], [place] [address] Performed By: #### 1 9123-9, 04636-7, 30737-6 ####[facility] LABIA [id number] [place] [address] [place] ALP [Catalytic activity/Vol] 128 U/L High 38-113 [facility] Comment on above: Order Comment: Speci men Type: BLOOD SPECIMENOrdering Facility: [facility] Address: [address] [place], [place] [address] Performed By: #### 1 9123-9, 72651-8, 91458-9 ####[facility] LABCLIA [id number] [place] [address] [place] ALT [Catalytic activity/Vol] 16 U/L Normal 10-54 [facility] Comment on above: Order Comment: Speci men Type: BLOOD SPECIMENOrdering Facility: [facility] Address: [address] [place] [address] Performed By: #### 1 9123-9, 38238-6, 09832-4 ####[facility]IA [id number] [place] [address] [place] Anion gap [Moles/Vol] 11 mmol/L Normal 9-18 [facility] Comment on above: Order Comment: Speci men Type: BLOOD SPECIMENOrdering Facility: [facility] Address: [address] [place] [address] Performed By: #### 1 9123-9, 15894-6, 03800-6 ####[facility] LABIA [id number] [address] [place] AST [Catalytic activity/Vol] 26 U/L Normal 14-40 [facility] Comment on above: Order Comment: Speci men Type: BLOOD SPECIMENOrdering Facility: [facility] Address: [address] [place] [address] Result Comment: Resu lts may be falsely increased due to interference from hemolysis. Suggest reorder as clinically indicated. Performed By: #### 1 9123-9, 78503-8, 38469-9 ####[facility]IA [id number] [place] [address] [place] Bilirubin [Mass/Vol] 1.0 mg/dL Normal 0.2-1.3 [facility] Comment on above: Order Comment: Speci men Type: BLOOD SPECIMENOrdering Facility: [facility] Address: [address] [place] [address] Performed By: #### 1 9123-9, 77373-4, 19649-9 ####[facility] LABCLIA [id number] [place] [address] [place] Calcium [Mass/Vol] 8.8 mg/dL Normal 8.5-10.2 [facility] Comment on above: Order Comment: Speci men Type: BLOOD SPECIMENOrdering Facility: [facility] Address: [address] [place] [address] Performed By: #### 1 9123-9, 18619-1, 75621-8 ####[facility] LABCLIA [id number] [place] [address] [place] Chloride [Moles/Vol] 95 mmol/L Low 97-105 [facility] Comment on above: Order Comment: Speci men Type: BLOOD SPECIMENOrdering Facility: [facility] Address: [address] [place] [address] Performed By: #### 1 9123-9, 06108-2, 52592-4 ####[facility] LABCLIA [id number] [place] [address] [place] CO2 [Moles/Vol] 22 mmol/L Normal 22-30 [facility] Comment on above: Order Comment: Speci men Type: BLOOD SPECIMENOrdering Facility: [facility] Address: [address] [place] [address] Performed By: #### 1 9123-9, 35824-2, 33577-7 ####[facility] LABCLIA [id number] [place] [id number] [place] Creatinine [Mass/Vol] 2.00 mg/dL High 0.73-1.22 [facility] Comment on above: Order Comment: Speci men Type: BLOOD SPECIMENOrdering Facility: [facility] Address: [address] [place] [address] Performed By: #### 1 9123-9, 64481-3, 05560-8 ####[facility] [id number] [address] [place] Creatinine and Glomerular filtration rate.predicted panel (S/P/Bld) 36 mL/min/1.73m??? Low >=60 [facility] Comment on above: Order Comment: Speccate clemons Type: BLOOD SPECIMENOrdering Facility: [facility] Address: [address] [place] [address] Result Comment: Syl mated Glomerular Filtration Rate [...] actual GFR. Performed By: #### 1 9123-9, 23189-1, 76766-9 ####[facility] [id number] [place] [address] [place] Glucose [Mass/Vol] 159 mg/dL High 74-99 [facility] Comment on above: Order Comment: Joseline clemons Type: BLOOD SPECIMENOrdering Facility: [facility] Address: [address] [place] [address] Result Comment: The [place] [employer] (ADA) provides guidance for cutoff [...] Standards of Medical Care in Diabetes 2016, [place] [employer]. Diabetes Care. 2016.39(Suppl 1). Performed By: #### 1 9123-9, 31792-7, 26656-0 ####[facility] LABCLIA [id number] [place] [address] [place] Potassium [Moles/Vol] 4.2 mmol/L Normal 3.7-5.1 [facility] Comment on above: Order Comment: Speci men Type: BLOOD SPECIMENOrdering Facility: [facility] Address: [address] [place] [address] Performed By: #### 1 9123-9, 08333-1, 63590-3 ####[facility] LABCLIA [id number] [place] [address] [place] Protein [Mass/Vol] 6.1 g/dL Low 6.3-8.0 [facility] Comment on above: Order Comment: Speci men Type: BLOOD SPECIMENOrdering Facility: [facility] Address: [address] [place] [address] Performed By: #### 1 9123-9, 24260-5, 00114-4 ####[facility] LABCLIA [id number] [place] [address] [place] Sodium [Moles/Vol] 128 mmol/L Low 136-144 [facility] Comment on above: Order Comment: Speci men Type: BLOOD SPECIMENOrdering Facility: [facility] Address: [address] Performed By: #### 1 9123-9, 61461-2, 67460-8 ####[facility] LABCLIA [id number] [place] [address] [place] Urea nitrogen [Mass/Vol] 47 mg/dL High 9-24 [facility] Comment on above: Order Comment: Speci men Type: BLOOD SPECIMENOrdering Facility: [facility] Address: [address] Performed By: #### 1 9123-9, 17459-0, 62428-0 ####[facility] LABCLIA [id number] [address] [place] Magnesium [facility] 04-04 Magnesium [Mass/Vol] 2.4 mg/dL High 1.7-2.3 [facility] Comment on above: Order Comment: Speci men Type: BLOOD SPECIMENOrdering Facility: [facility] Address: [address] [place] [address] Performed By: #### 1 9123-9, 92140-3, 50710-4 ####[facility] LABIA [id number] [address] [place] [facility] Natriuretic peptide.B prohormone N-Terminal [Mass/Vol] 5065 pg/mL High <125 [facility] Comment on above: Order Comment: Speci men Type: BLOOD SPECIMENOrdering Facility: [facility] Address: [address] [place] [address] Performed By: #### 1 9123-9, 06329-9, 60754-9 ####[facility] LABIA [id number] [place] [address] [place] CASE MANAGEMon 04-03-2023 CASE MANAGEM Normal [facility] CBC panel Auto (Bld)on 04-03 Erythrocyte distribution width (RBC) [Ratio] 20.2 % High 11.5-15.0 [facility] Comment on above: Order Comment: Speci men Type: BLOOD SPECIMENOrdering Facility: [facility] Address: [address] [place] [address] Performed By: #### 5 8410-2 ####[facility] LABIA [id number] [address] [place] Hematocrit (Bld) [Volume fraction] 34.2 % Low 39.0-51.0 [facility] Comment on above: Order Comment: Speci men Type: BLOOD SPECIMENOrdering Facility: [facility] Address: [address] [place] [address] Performed By: #### 5 8410-2 ####[facility] LABIA [id number] [place] [address] [place] Hemoglobin (Bld) [Mass/Vol] 10.3 g/dL Low 13.0-17.0 [facility] Comment on above: Order Comment: Speci men Type: BLOOD SPECIMENOrdering Facility: [facility] Address: [address] [place] [address] Performed By: #### 5 8410-2 ####[facility] LABIA [id number] [place] [address] [place] MCH (RBC) [Entitic mass] 24.4 pg Low 26.0-34.0 [facility] Comment on above: Order Comment: Speci men Type: BLOOD SPECIMENOrdering Facility: [facility] Address: [address] [place] [address] Performed By: #### 5 8410-2 ####[facility] LABIA [id number] [place] [address] [place] MCHC (RBC) [Mass/Vol] 30.1 g/dL Low 30.5-36.0 [facility] Comment on above: Order Comment: Speci men Type: BLOOD SPECIMENOrdering Facility: [facility] Address: [address] [place], [place] [address] Performed By: #### 5 8410-2 ####[facility] LABIA [id number] [place] [address] [place] MCV (RBC) [Entitic vol] 81.0 fL Normal 80.0-100.0 [facility] Comment on above: Order Comment: Speci men Type: BLOOD SPECIMENOrdering Facility: [facility] Address: [address] [place] [address] Performed By: #### 5 8410-2 ####[facility] [id number] [place] [address] [place] Nucleated RBC (Bld) [#/Vol] 10*3/uL Normal <0.01 [facility] Comment on above: Order Comment: Speci men Type: BLOOD SPECIMENOrdering Facility: [facility] Address: [address] [place] [address] Performed By: #### 5 8410-2 ####[facility] [id number] [place] [address] [place] Platelet mean volume (Bld) [Entitic vol] 10.3 fL Normal 9.0-12.7 [facility] Comment on above: Order Comment: Speci men Type: BLOOD SPECIMENOrdering Facility: [facility] Address: [address] [place] [address] Performed By: #### 5 8410-2 ####[facility] [id number] [place] [address] [place] Platelets (Bld) [#/Vol] 235 10*3/uL Normal 150-400 [facility] Comment on above: Order Comment: Speci men Type: BLOOD SPECIMENOrdering Facility: [facility] Address: [address] [place] [address] Performed By: #### 5 8410-2 ####[facility] [id number] [place] [address] [place] RBC (Bld) [#/Vol] 4.22 10*6/uL Normal 4.20-6.00 [facility] Comment on above: Order Comment: Speci men Type: BLOOD SPECIMENOrdering Facility: [facility] Address: [address] [place], [place] [address] Performed By: #### 5 8410-2 ####[facility] [id number] [place] [address] [place] WBC (Bld) [#/Vol] 7.92 10*3/uL Normal 3.70-11.00 [facility] Comment on above: Order Comment: Speci men Type: BLOOD SPECIMENOrdering Facility: [facility] Address: [address] [place] [address] Performed By: #### 5 8410-2 ####[facility] LABCLIA [id number] [place] [address] [place] [facility] Comprehensive metabolic 2000 panelon 04-03-2023 Albumin [Mass/Vol] 3.1 g/dL Low 3.9-4.9 [facility] Comment on above: Order Comment: Speci men Type: BLOOD SPECIMENOrdering Facility: [facility] Address: [address] [place] [address] Performed By: #### 2 4323-8 ####[facility] LABCLIA [id number] [place] [address] [place] ALP [Catalytic activity/Vol] 127 U/L High 38-113 [facility] Comment on above: Order Comment: Speci men Type: BLOOD SPECIMENOrdering Facility: [facility] Address: [address] [place] [address] Performed By: #### 2 4323-8 ####[facility] LABCLIA [id number] [address] [place] ALT [Catalytic activity/Vol] 16 U/L Normal 10-54 [facility] Comment on above: Order Comment: Speci men Type: BLOOD SPECIMENOrdering Facility: [facility] Address: [address] [place] [address] Performed By: #### 2 4323-8 ####[facility] LABCLIA [id number] [place] [address] [place] Anion gap [Moles/Vol] 10 mmol/L Normal 9-18 [facility] Comment on above: Order Comment: Speci men Type: BLOOD SPECIMENOrdering Facility: [facility] Address: [address] [place] [address] [place] [address] Performed By: #### 2 4323-8 ####[facility] LABCLIA [id number] [place] [address] [place] AST [Catalytic activity/Vol] 16 U/L Normal 14-40 [facility] Comment on above: Order Comment: Speci men Type: BLOOD SPECIMENOrdering Facility: [facility] Address: [address] Performed By: #### 2 4323-8 ####[facility] LABCLIA [id number] [place] [address] [place] Bilirubin [Mass/Vol] 1.2 mg/dL Normal 0.2-1.3 [facility] Comment on above: Order Comment: Speci men Type: BLOOD SPECIMENOrdering Facility: [facility] Address: [address] Performed By: #### 2 4323-8 ####[facility] LABCLIA [id number] [place] [address] [place] Calcium [Mass/Vol] 8.8 mg/dL Normal 8.5-10.2 [facility] Comment on above: Order Comment: Speci men Type: BLOOD SPECIMENOrdering Facility: [facility] Address: [address] [place] [address] Performed By: #### 2 4323-8 ####[facility] LABCLIA [id number] [place] [address] [place] Chloride [Moles/Vol] 96 mmol/L Low 97-105 [facility] Comment on above: Order Comment: Speci men Type: BLOOD SPECIMENOrdering Facility: [facility] Address: [address] [place] [address] Performed By: #### 2 4323-8 ####[facility] LABCLIA [id number] [address] [place] CO2 [Moles/Vol] 23 mmol/L Normal 22-30 [facility] Comment on above: Order Comment: Speci men Type: BLOOD SPECIMENOrdering Facility: [facility] Address: [address] [place] [address] Performed By: #### 2 4323-8 ####[facility] LABCLIA [id number] [address] [place] Creatinine [Mass/Vol] 1.96 mg/dL High 0.73-1.22 [facility] Comment on above: Order Comment: Speci men Type: BLOOD SPECIMENOrdering Facility: [facility] Address: [address] [place] [address] Performed By: #### 2 4323-8 ####[facility] LABCLIA [id number] [address] Creatinine and Glomerular filtration rate.predicted panel (S/P/Bld) 37 mL/min/1.73m??? Low >=60 [facility] Comment on above: Order Comment: Speci men Type: BLOOD SPECIMENOrdering Facility: [facility] Address: [address] [place] [address] Result Comment: Syl mated Glomerular Filtration Rate [...] actual GFR. Performed By: #### 2 4323-8 ####[facility] LABCLIA [id number] [place] [address] [place] Glucose [Mass/Vol] 168 mg/dL High 74-99 [facility] Comment on above: Order Comment: Speci men Type: BLOOD SPECIMENOrdering Facility: [facility] Address: [address] [place] [address] Result Comment: The [place] [employer] (ADA) provides guidance for cutoff [...] Standards of Medical Care in Diabetes 2016, [place] [employer]. Diabetes Care. 2016.39(Suppl 1). Performed By: #### 2 4323-8 ####[facility] LABIA [id number] [place] [address] [place] Potassium [Moles/Vol] 4.0 mmol/L Normal 3.7-5.1 [facility] Comment on above: Order Comment: Speci men Type: BLOOD SPECIMENOrdering Facility: [facility] Address: [address] [place] [address] Performed By: #### 2 4323-8 ####[facility] [id number] [place] [address] [place] Protein [Mass/Vol] 6.1 g/dL Low 6.3-8.0 [facility] Comment on above: Order Comment: Speci men Type: BLOOD SPECIMENOrdering Facility: [facility] Address: [address] [place] [address] Performed By: #### 2 4323-8 ####[facility] LABIA [id number] [place] [address] [place] Sodium [Moles/Vol] 129 mmol/L Low 136-144 [facility] Comment on above: Order Comment: Speci men Type: BLOOD SPECIMENOrdering Facility: [facility] Address: [address] [place] [address] Performed By: #### 2 4323-8 ####[facility] LABCLIA [id number] [place] [address] [place] Urea nitrogen [Mass/Vol] 49 mg/dL High 9-24 [facility] Comment on above: Order Comment: Speci men Type: BLOOD SPECIMENOrdering Facility: [facility] Address: [address] [place] [address] Performed By: #### 2 4323-8 ####[facility] LABCLIA [id number] [place] [address] [place] CBC panel Auto (Bld)on 04-02 Erythrocyte distribution width (RBC) [Ratio] 20.2 % High 11.5-15.0 [facility] Comment on above: Order Comment: Speci men Type: BLOOD SPECIMENOrdering Facility: [facility] Address: [address] [place] [address] Performed By: #### 5 8410-2 ####[facility] LABCLIA [id number] [place] [address] [place] Hematocrit (Bld) [Volume fraction] 32.1 % Low 39.0-51.0 [facility] Comment on above: Order Comment: Speci men Type: BLOOD SPECIMENOrdering Facility: [facility] Address: [address] [place] [address] Performed By: #### 5 8410-2 ####[facility] LABCLIA [id number] [place] [address] [place] Hemoglobin (Bld) [Mass/Vol] 10.1 g/dL Low 13.0-17.0 [facility] Comment on above: Order Comment: Speci men Type: BLOOD SPECIMENOrdering Facility: [facility] Address: [address] [place] [address] Performed By: #### 5 8410-2 ####[facility] LABCLIA [id number] [place] [address] [id number] MCH (RBC) [Entitic mass] 24.6 pg Low 26.0-34.0 [facility] Comment on above: Order Comment: Speci men Type: BLOOD SPECIMENOrdering Facility: [facility] Address: [address] [place] [address] Performed By: #### 5 8410-2 ####[facility] LABCLIA [id number] [address] [place] MCHC (RBC) [Mass/Vol] 31.5 g/dL Normal 30.5-36.0 [facility] Comment on above: Order Comment: Speci men Type: BLOOD SPECIMENOrdering Facility: [facility] Address: [address] [place] [address] Performed By: #### 5 8410-2 ####[facility] LABCLIA [id number] [address] [place] MCV (RBC) [Entitic vol] 78.1 fL Low 80.0-100.0 [facility] Comment on above: Order Comment: Speci men Type: BLOOD SPECIMENOrdering Facility: [facility] Address: [address] [place], [place] [address] Performed By: #### 5 8410-2 ####[facility] LABCLIA [id number] [address] [place] Nucleated RBC (Bld) [#/Vol] 10*3/uL Normal <0.01 [facility] Comment on above: Order Comment: Speci men Type: BLOOD SPECIMENOrdering Facility: [facility] Address: [address] [place], [place] [address] Performed By: #### 5 8410-2 ####[facility] LABCLIA [id number] [address] [place] Platelet mean volume (Bld) [Entitic vol] 9.8 fL Normal 9.0-12.7 [facility] Comment on above: Order Comment: Speci men Type: BLOOD SPECIMENOrdering Facility: [facility] Address: [address] [place] [address] Performed By: #### 5 8410-2 ####[facility] LABCLIA [id number] [place] [address] [place] Platelets (Bld) [#/Vol] 222 10*3/uL Normal 150-400 [facility] Comment on above: Order Comment: Speci men Type: BLOOD SPECIMENOrdering Facility: [facility] Address: [address] [place] [address] Performed By: #### 5 8410-2 ####[facility] LABIA [id number] [place] [address] [place] RBC (Bld) [#/Vol] 4.11 10*6/uL Low 4.20-6.00 [facility] Comment on above: Order Comment: Speci men Type: BLOOD SPECIMENOrdering Facility: [facility] Address: [address] [place] [address] Performed By: #### 5 8410-2 ####[facility] LABIA [id number] [place] [address] [place] WBC (Bld) [#/Vol] 8.44 10*3/uL Normal 3.70-11.00 [facility] Comment on above: Order Comment: Speci men Type: BLOOD SPECIMENOrdering Facility: [facility] Address: [address] [place] [address] Performed By: #### 5 8410-2 ####[facility] LABIA [id number] [place] [address] [place] CONSULT PROGon 04-02-2023 CONSULT PROG Normal [facility] Comprehensive metabolic 2000 panelon 04-02-2023 Albumin [Mass/Vol] 3.3 g/dL Low 3.9-4.9 [facility] Comment on above: Order Comment: Speci men Type: BLOOD SPECIMENOrdering Facility: [facility] Address: [address] [place] [address] Performed By: #### 2 4322-8, ####[facility] LABCLIA [id number] [place] [address] [place] ALP [Catalytic activity/Vol] 133 U/L High 38-113 [facility] Comment on above: Order Comment: Speci men Type: BLOOD SPECIMENOrdering Facility: [facility] Address: [address] [place] [address] Performed By: #### 2 4322-8, ####[facility] LABCLIA [id number] [address] [place] ALT [Catalytic activity/Vol] 16 U/L Normal 10-54 [facility] Comment on above: Order Comment: Speci men Type: BLOOD SPECIMENOrdering Facility: [facility] Address: [address] [place] [address] Performed By: #### 2 8, ####[facility] LABCLIA [id number] [place] [address] [place] Anion gap [Moles/Vol] 14 mmol/L Normal 9-18 [facility] Comment on above: Order Comment: Speci men Type: BLOOD SPECIMENOrdering Facility: [facility] Address: [address] Performed By: #### 2 4322-8, ####[facility] LABCLIA [id number] [place] [address] [place] AST [Catalytic activity/Vol] 17 U/L Normal 14-40 [facility] Comment on above: Order Comment: Speci men Type: BLOOD SPECIMENOrdering Facility: [facility] Address: [address] Performed By: #### 2 4322-8, ####[facility] LABCLIA [id number] [place] [address] [place] Bilirubin [Mass/Vol] 1.6 mg/dL High 0.2-1.3 [facility] Comment on above: Order Comment: Speci men Type: BLOOD SPECIMENOrdering Facility: [facility] Address: [address] [place] [address] Performed By: #### 2 4323-03, ####[facility] LABCLIA [id number] [place] [address] [place] Calcium [Mass/Vol] 9.1 mg/dL Normal 8.5-10.2 [facility] Comment on above: Order Comment: Speci men Type: BLOOD SPECIMENOrdering Facility: [facility] Address: [address] [place] [address] Performed By: #### 2 4323-03, ####[facility] LABCLIA [id number] [place] [address] [place] Chloride [Moles/Vol] 96 mmol/L Low 97-105 [facility] Comment on above: Order Comment: Speci men Type: BLOOD SPECIMENOrdering Facility: [facility] Address: [address] [place], [place] [address] Performed By: #### 2 4323-03, ####[facility] LABCLIA [id number] [place] [address] [place] CO2 [Moles/Vol] 21 mmol/L Low 22-30 [facility] Comment on above: Order Comment: Speci men Type: BLOOD SPECIMENOrdering Facility: [facility] Address: [address] [place], [place] [address] Performed By: #### 2 4323-03, ####[facility] LABCLIA [id number] [place] [address] [place] Creatinine [Mass/Vol] 2.07 mg/dL High 0.73-1.22 [facility] Comment on above: Order Comment: Joseline clemons Type: BLOOD SPECIMENOrdering Facility: [facility] Address: [address] [place] [address] Performed By: #### 2 4323-8, ####[facility] LABCLIA [id number] [address] [facility] Creatinine and Glomerular filtration rate.predicted panel (S/P/Bld) 35 mL/min/1.73m??? Low >=60 [facility] Comment on above: Order Comment: Joseline clemons Type: BLOOD SPECIMENOrdering Facility: [facility] Address: [address] [place], [place] [address] Result Comment: Syl mated Glomerular Filtration Rate [...] actual GFR. Performed By: #### 2 4323-8, ####[facility] LABCLIA [id number] [place] [address] [place] Glucose [Mass/Vol] 155 mg/dL High 74-99 [facility] Comment on above: Order Comment: Joseline clemons Type: BLOOD SPECIMENOrdering Facility: [facility] Address: [address] [place], [place] [address] Result Comment: The [place] [employer] (ADA) provides guidance for cutoff [...] Standards of Medical Care in Diabetes 2016, [place] [employer]. Diabetes Care. 2016.39(Suppl 1). Performed By: #### 2 4323-03, ####[facility] LABCLIA [id number] [place] [address] [place] Potassium [Moles/Vol] 4.0 mmol/L Normal 3.7-5.1 [facility] Comment on above: Order Comment: Speci men Type: BLOOD SPECIMENOrdering Facility: [facility] Address: [address] [place] [address] Performed By: #### 2 4323-03, ####[facility] LABCLIA [id number] [place] [address] [place] Protein [Mass/Vol] 6.5 g/dL Normal 6.3-8.0 [facility] Comment on above: Order Comment: Speci men Type: BLOOD SPECIMENOrdering Facility: [facility] Address: [address] Performed By: #### 2 4323-03, ####[facility] LABCLIA [id number] [place] [address] [place] Sodium [Moles/Vol] 131 mmol/L Low 136-144 [facility] Comment on above: Order Comment: Speci men Type: BLOOD SPECIMENOrdering Facility: [facility] Address: [address] Performed By: #### 2 4323-03, ####[facility] LABCLIA [id number] [place] [address] [place] Urea nitrogen [Mass/Vol] 50 mg/dL High 9-24 [facility] Comment on above: Order Comment: Speci men Type: BLOOD SPECIMENOrdering Facility: [facility] Address: [address] Performed By: #### 2 4323-8, 45338-1 ####[facility] LABCLIA [id number] [place] [address] [place] Magnesium SerPl-mCncon 04-02 Magnesium [Mass/Vol] 2.3 mg/dL Normal 1.7-2.3 [facility] Comment on above: Order Comment: Speci men Type: BLOOD SPECIMENOrdering Facility: [facility] Address: [address] [place], [place] [address] Performed By: #### 2 4323-8, ####[facility] LABCLIA [id number] [place] [address] [place] XR CHEST 2V FRONTAL/LATon XR CHEST 2V FRONTAL/LAT Normal [facility] CBC panel Auto (Bld)on 04-01 Erythrocyte distribution width (RBC) [Ratio] 20.5 % High 11.5-15.0 [facility] Comment on above: Order Comment: Speci men Type: BLOOD SPECIMENOrdering Facility: [facility] Address: [address] [place], [place] [address] Performed By: #### 5 8410-2 ####[facility] LABCLIA [id number] [place] [address] [place] Hematocrit (Bld) [Volume fraction] 34.3 % Low 39.0-51.0 [facility] Comment on above: Order Comment: Speci men Type: BLOOD SPECIMENOrdering Facility: [facility] Address: [address] [place], [place] [address] Performed By: #### 5 8410-2 ####[facility] LABCLIA [id number] [place] [address] [place] Hemoglobin (Bld) [Mass/Vol] 10.5 g/dL Low 13.0-17.0 [facility] Comment on above: Order Comment: Speci men Type: BLOOD SPECIMENOrdering Facility: [facility] Address: [address] Performed By: #### 5 8410-2 ####[facility] LABIA [id number] [address] [place] MCH (RBC) [Entitic mass] 24.7 pg Low 26.0-34.0 [facility] Comment on above: Order Comment: Speci men Type: BLOOD SPECIMENOrdering Facility: [facility] Address: [address] Performed By: #### 5 8410-2 ####[facility] LABIA [id number] [address] [place] MCHC (RBC) [Mass/Vol] 30.6 g/dL Normal 30.5-36.0 [facility] Comment on above: Order Comment: Speci men Type: BLOOD SPECIMENOrdering Facility: [facility] Address: [address] Performed By: #### 5 8410-2 ####[facility] [id number] [address] [place] MCV (RBC) [Entitic vol] 80.7 fL Normal 80.0-100.0 [facility] Comment on above: Order Comment: Speci men Type: BLOOD SPECIMENOrdering Facility: [facility] Address: [address] Performed By: #### 5 8410-2 ####[facility] [id number] [address] [place] Nucleated RBC (Bld) [#/Vol] 10*3/uL Normal <0.01 [facility] Comment on above: Order Comment: Speci men Type: BLOOD SPECIMENOrdering Facility: [facility] Address: [address] [place], [place] [address] Performed By: #### 5 8410-2 ####[facility] LABCLIA [id number] [place] [address] [place] Platelet mean volume (Bld) [Entitic vol] 9.8 fL Normal 9.0-12.7 [facility] Comment on above: Order Comment: Speci men Type: BLOOD SPECIMENOrdering Facility: [facility] Address: [address] [place] [address] Performed By: #### 5 8410-2 ####[facility] LABIA [id number] [place] [address] [place] Platelets (Bld) [#/Vol] 215 10*3/uL Normal 150-400 [facility] Comment on above: Order Comment: Speci men Type: BLOOD SPECIMENOrdering Facility: [facility] Address: [address] [place], [place] [address] Performed By: #### 5 8410-2 ####[facility] LABIA [id number] [place] [address] [place] RBC (Bld) [#/Vol] 4.25 10*6/uL Normal 4.20-6.00 [facility] Comment on above: Order Comment: Speci men Type: BLOOD SPECIMENOrdering Facility: [facility] Address: [address] [place] [address] Performed By: #### 5 8410-2 ####[facility] LABIA [id number] [place] [address] [place] WBC (Bld) [#/Vol] 7.96 10*3/uL Normal 3.70-11.00 [facility] Comment on above: Order Comment: Speci men Type: BLOOD SPECIMENOrdering Facility: [facility] Address: [address] [place], [place] [address] Performed By: #### 5 8410-2 ####[facility] LABCLIA [id number] [place] [address] [place] CONSULT PROGon 04-01-2023 CONSULT PROG Normal [facility] Comprehensive metabolic 2000 panelon 04-01-2023 Albumin [Mass/Vol] 3.4 g/dL Low 3.9-4.9 [facility] Comment on above: Order Comment: Speci men Type: BLOOD SPECIMENOrdering Facility: [facility] Address: [address] [place] [address] Performed By: #### 2 4323-8 ####[facility] LABCLIA [id number] [place] [address] [place] ALP [Catalytic activity/Vol] 139 U/L High 38-113 [facility] Comment on above: Order Comment: Speci men Type: BLOOD SPECIMENOrdering Facility: [facility] Address: [address] [place] [address] Performed By: #### 2 4323-8 ####[facility] LABCLIA [id number] [address] [place] ALT [Catalytic activity/Vol] 21 U/L Normal 10-54 [facility] Comment on above: Order Comment: Speci men Type: BLOOD SPECIMENOrdering Facility: [facility] Address: [address] [place] [address] Performed By: #### 2 4323-8 ####[facility] LABCLIA [id number] [place] [address] [place] Anion gap [Moles/Vol] 14 mmol/L Normal 9-18 [facility] Comment on above: Order Comment: Speci men Type: BLOOD SPECIMENOrdering Facility: [facility] Address: [address] [place] [address] Performed By: #### 2 4323-8 ####[facility] LABCLIA [id number] [place] [address] [place] AST [Catalytic activity/Vol] 18 U/L Normal 14-40 [facility] Comment on above: Order Comment: Speci men Type: BLOOD SPECIMENOrdering Facility: [facility] Address: [address] Performed By: #### 2 4323-8 ####[facility] LABCLIA [id number] [place] [address] [place] Bilirubin [Mass/Vol] 1.9 mg/dL High 0.2-1.3 [facility] Comment on above: Order Comment: Speci men Type: BLOOD SPECIMENOrdering Facility: [facility] Address: [address] Performed By: #### 2 4323-8 ####[facility] LABCLIA [id number] [place] [address] [place] Calcium [Mass/Vol] 9.1 mg/dL Normal 8.5-10.2 [facility] Comment on above: Order Comment: Speci men Type: BLOOD SPECIMENOrdering Facility: [facility] Address: [address] [place], [place] [address] Performed By: #### 2 4323-8 ####[facility] LABCLIA [id number] [place] [address] [place] Chloride [Moles/Vol] 95 mmol/L Low 97-105 [facility] Comment on above: Order Comment: Speci men Type: BLOOD SPECIMENOrdering Facility: [facility] Address: [address] Performed By: #### 2 4323-8 ####[facility] LABCLIA [id number] [place] [address] [place] CO2 [Moles/Vol] 22 mmol/L Normal 22-30 [facility] Comment on above: Order Comment: Speci men Type: BLOOD SPECIMENOrdering Facility: [facility] Address: [address] Performed By: #### 2 4323-8 ####[facility] LABIA [id number] [address] STATES OF [facility] Creatinine [Mass/Vol] 2.11 mg/dL High 0.73-1.22 [facility] Comment on above: Order Comment: Joseline clemons Type: BLOOD SPECIMENOrdering Facility: [facility] Address: [address] [address] Performed By: #### 2 4323-8 ####[facility] LABIA [id number] [address] OF [facility] Creatinine and Glomerular filtration rate.predicted panel (S/P/Bld) 34 mL/min/1.73m??? Low >=60 [facility] Comment on above: Order Comment: Joseline clemons Type: BLOOD SPECIMENOrdering Facility: [facility] Address: [address] [place] [address] Result Comment: Syl mated Glomerular Filtration Rate [...] actual GFR. Performed By: #### 2 4323-8 ####[facility] LABIA [id number] [place] [address] [place] Glucose [Mass/Vol] 188 mg/dL High 74-99 [facility] Comment on above: Order Comment: Speci men Type: BLOOD SPECIMENOrdering Facility: [facility] Address: [address] [place] [address] Result Comment: The [place] [employer] (ADA) provides guidance for cutoff [...] Standards of Medical Care in Diabetes 2016, [place] [employer]. Diabetes Care. 2016.39(Suppl 1). Performed By: #### 2 4323-8 ####[facility] LABCLIA [id number] [place] [address] [place] Potassium [Moles/Vol] 4.3 mmol/L Normal 3.7-5.1 [facility] Comment on above: Order Comment: Speci men Type: BLOOD SPECIMENOrdering Facility: [facility] Address: [address] [place] [address] Performed By: #### 2 4323-8 ####[facility] LABCLIA [id number] [place] [address] [place] Protein [Mass/Vol] 6.2 g/dL Low 6.3-8.0 [facility] Comment on above: Order Comment: Speci men Type: BLOOD SPECIMENOrdering Facility: [facility] Address: [address] [place] [address] Performed By: #### 2 4323-8 ####[facility] LABCLIA [id number] [place] [address] [place] Sodium [Moles/Vol] 131 mmol/L Low 136-144 [facility] Comment on above: Order Comment: Speci men Type: BLOOD SPECIMENOrdering Facility: [facility] Address: [address] [place] [address] Performed By: #### 2 4323-8 ####[facility] LABCLIA [id number] [place] [address] [place] Urea nitrogen [Mass/Vol] 51 mg/dL High 9-24 [facility] Comment on above: Order Comment: Speci men Type: BLOOD SPECIMENOrdering Facility: [facility] Address: [address] [place] [address] Performed By: #### 2 4323-8 ####[facility] LABIA [id number] [place] [address] [place] CASE MANAGEMon 03-31-2023 CASE MANAGEM Normal [facility] CBC panel Auto (Bld)on 03-31 Erythrocyte distribution width (RBC) [Ratio] 20.6 % High 11.5-15.0 [facility] Comment on above: Order Comment: Speci men Type: BLOOD SPECIMENOrdering Facility: [facility] Address: [address] [place] [address] Performed By: #### 5 8410-2 ####[facility] LABIA [id number] [place] [address] [place] Hematocrit (Bld) [Volume fraction] 35.6 % Low 39.0-51.0 [facility] Comment on above: Order Comment: Speci men Type: BLOOD SPECIMENOrdering Facility: [facility] Address: [address] [place] [address] Performed By: #### 5 8410-2 ####[facility] LABIA [id number] [place] [address] [place] Hemoglobin (Bld) [Mass/Vol] 11.1 g/dL Low 13.0-17.0 [facility] Comment on above: Order Comment: Speci men Type: BLOOD SPECIMENOrdering Facility: [facility] Address: [address] [place], [place] [address] Performed By: #### 5 8410-2 ####[facility] LABIA [id number] [place] [address] [place] MCH (RBC) [Entitic mass] 25.0 pg Low 26.0-34.0 [facility] Comment on above: Order Comment: Speci men Type: BLOOD SPECIMENOrdering Facility: [facility] Address: [address] Performed By: #### 5 8410-2 ####[facility] LABIA [id number] [address] STATES [facility] MCHC (RBC) [Mass/Vol] 31.2 g/dL Normal 30.5-36.0 [facility] Comment on above: Order Comment: Speci men Type: BLOOD SPECIMENOrdering Facility: [facility] Address: [address] Performed By: #### 5 8410-2 ####[facility] [id number] [place] [address] [place] MCV (RBC) [Entitic vol] 80.2 fL Normal 80.0-100.0 [facility] Comment on above: Order Comment: Speci men Type: BLOOD SPECIMENOrdering Facility: [facility] Address: [address] Performed By: #### 5 8410-2 ####[facility] [id number] [place] [address] [place] Nucleated RBC (Bld) [#/Vol] 0.03 10*3/uL High <0.01 [facility] Comment on above: Order Comment: Speci men Type: BLOOD SPECIMENOrdering Facility: [facility] Address: [address] Performed By: #### 5 8410-2 ####[facility] [id number] [place] [address] [place] Platelet mean volume (Bld) [Entitic vol] 9.7 fL Normal 9.0-12.7 [facility] Comment on above: Order Comment: Speci men Type: BLOOD SPECIMENOrdering Facility: [facility] Address: [address] [place], [place] [address] Performed By: #### 5 8410-2 ####[facility] LABCLIA [id number] [place] [address] [place] Platelets (Bld) [#/Vol] 251 10*3/uL Normal 150-400 [facility] Comment on above: Order Comment: Speci men Type: BLOOD SPECIMENOrdering Facility: [facility] Address: [address] [place] [address] Performed By: #### 5 8410-2 ####[facility] LABIA [id number] [place] [address] [place] RBC (Bld) [#/Vol] 4.44 10*6/uL Normal 4.20-6.00 [facility] Comment on above: Order Comment: Speci men Type: BLOOD SPECIMENOrdering Facility: [facility] Address: [address] [place] [address] Performed By: #### 5 8410-2 ####[facility] LABIA [id number] [place] [address] [place] WBC (Bld) [#/Vol] 7.47 10*3/uL Normal 3.70-11.00 [facility] Comment on above: Order Comment: Speci men Type: BLOOD SPECIMENOrdering Facility: [facility] Address: [address] [place] [address] Performed By: #### 5 8410-2 ####[facility] LABIA [id number] [place] [address] [place] CONSULT PROGon 03-31-2023 CONSULT PROG Normal [facility] Comprehensive metabolic 2000 panelon 03-31-2023 Albumin [Mass/Vol] 3.5 g/dL Low 3.9-4.9 [facility] Comment on above: Order Comment: Speci men Type: BLOOD SPECIMENOrdering Facility: [facility] Address: [address] [place] [address] Performed By: #### 2 4323-8 ####[facility] LABCLIA [id number] [place] [address] [place] ALP [Catalytic activity/Vol] 139 U/L High 38-113 [facility] Comment on above: Order Comment: Speci men Type: BLOOD SPECIMENOrdering Facility: [facility] Address: [address] [place] [address] Performed By: #### 2 4323-8 ####[facility] LABCLIA [id number] [place] [address] [place] ALT [Catalytic activity/Vol] 20 U/L Normal 10-54 [facility] Comment on above: Order Comment: Speci men Type: BLOOD SPECIMENOrdering Facility: [facility] Address: [address] [place] [address] Performed By: #### 2 4323-8 ####[facility] LABCLIA [id number] [place] [address] [place] Anion gap [Moles/Vol] 12 mmol/L Normal 9-18 [facility] Comment on above: Order Comment: Speci men Type: BLOOD SPECIMENOrdering Facility: [facility] Address: [address] [place] [address] Performed By: #### 2 4323-8 ####[facility] LABCLIA [id number] [place] [address] [place] AST [Catalytic activity/Vol] 16 U/L Normal 14-40 [facility] Comment on above: Order Comment: Speci men Type: BLOOD SPECIMENOrdering Facility: [facility] Address: [address] [place] [address] Performed By: #### 2 4323-8 ####[facility] LABCLIA [id number] [place] [address] [place] Bilirubin [Mass/Vol] 2.0 mg/dL High 0.2-1.3 [facility] Comment on above: Order Comment: Speci men Type: BLOOD SPECIMENOrdering Facility: [facility] Address: [address] [address] Performed By: #### 2 4323-8 ####[facility] LABCLIA [id number] [place] [address] [place] Calcium [Mass/Vol] 9.3 mg/dL Normal 8.5-10.2 [facility] Comment on above: Order Comment: Speci men Type: BLOOD SPECIMENOrdering Facility: [facility] Address: [address] [address] Performed By: #### 2 4323-8 ####[facility] LABCLIA [id number] [place] [address] [place] Chloride [Moles/Vol] 96 mmol/L Low 97-105 [facility] Comment on above: Order Comment: Speci men Type: BLOOD SPECIMENOrdering Facility: [facility] Address: [address] [address] Performed By: #### 2 4323-8 ####[facility] LABCLIA [id number] [place] [address] [place] CO2 [Moles/Vol] 24 mmol/L Normal 22-30 [facility] Comment on above: Order Comment: Speci men Type: BLOOD SPECIMENOrdering Facility: [facility] Address: [address] Performed By: #### 2 4323-8 ####[facility] LABCLIA [id number] [place] [address] [place] Creatinine [Mass/Vol] 2.17 mg/dL High 0.73-1.22 [facility] Comment on above: Order Comment: Speci men Type: BLOOD SPECIMENOrdering Facility: [facility] Address: [address] Performed By: #### 2 4323-8 ####[facility] LABCLIA [id number] [place] [address] [place] Creatinine and Glomerular filtration rate.predicted panel (S/P/Bld) 33 mL/min/1.73m??? Low >=60 [facility] Comment on above: Order Comment: Joseline clemons Type: BLOOD SPECIMENOrdering Facility: [facility] Address: [address] [address] Result Comment: Syl mated Glomerular Filtration Rate [...] actual GFR. Performed By: #### 2 4323-8 ####[facility] LABIA [id number] [place] [address] [place] Glucose [Mass/Vol] 186 mg/dL High 74-99 [facility] Comment on above: Order Comment: Joseline clemons Type: BLOOD SPECIMENOrdering Facility: [facility] Address: [address] [place] [address] Result Comment: The [place] [employer] (ADA) provides guidance for cutoff [...] Standards of Medical Care in Diabetes 2016, [place] [employer]. Diabetes Care. 2016.39(Suppl 1). Performed By: #### 2 4323-8 ####[facility] LABIA [id number] [place] [address] [place] Potassium [Moles/Vol] 4.4 mmol/L Normal 3.7-5.1 [facility] Comment on above: Order Comment: Speci men Type: BLOOD SPECIMENOrdering Facility: [facility] Address: [address] [place] [address] Performed By: #### 2 4323-8 ####[facility] LABCLIA [id number] [place] [address] [place] Protein [Mass/Vol] 6.3 g/dL Normal 6.3-8.0 [facility] Comment on above: Order Comment: Speci men Type: BLOOD SPECIMENOrdering Facility: [facility] Address: [address] [place] [address] Performed By: #### 2 4323-8 ####[facility] LABCLIA [id number] [place] [address] [place] Sodium [Moles/Vol] 132 mmol/L Low 136-144 [facility] Comment on above: Order Comment: Speci men Type: BLOOD SPECIMENOrdering Facility: [facility] Address: [address] [place] [address] Performed By: #### 2 4323-8 ####[facility] LABCLIA [id number] [place] [address] [place] Urea nitrogen [Mass/Vol] 50 mg/dL High 9-24 [facility] Comment on above: Order Comment: Speci men Type: BLOOD SPECIMENOrdering Facility: [facility] Address: [address] [place] [address] Performed By: #### 2 4323-8 ####[facility] LABCLIA [id number] [place] [address] [place] ECG COMPLETEon 03-31-2023 ECG COMPLETE Normal [facility] PT EDon 03-31-2023 PT ED Normal [facility] SURGICAL PATHOLOGYon 023 CASE REPORT Normal [facility] Comment on above: Order Comment: Speci men Type: DEVICE SPECIMENOrdering Facility: [facility] Address: [address] [place] [address] Result Comment: Surg ical Pathology Report Case: [id number] Provider: Flor Vitale MD Collected: 03/31/2023 03:[address] [facility] Received: 03/31/2023 06:17 PMPathologist: Nichol Best MDSpecimen: HARDWARE, ICD Performed By: #### S ####[facility] LABCLIA [id number] [address] CLINICAL HISTORY Normal [facility] Comment on above: Order Comment: Speci men Type: DEVICE SPECIMENOrdering Facility: [facility] Address: [address] [place] [address] Result Comment: Pre- op diagnosis:Acute decompensated heart failure (HCC) [I50.9]Ischemic cardiomyopathy [I25.5] Performed By: #### S ####[facility] LABCLIA [id number] [address] FINAL DIAGNOSIS Normal [facility] Comment on above: Order Comment: Speci men Type: DEVICE SPECIMENOrdering Facility: [facility] Address: [address] [place] [address] Result Comment: A. I mplantable cardioverter defibrillator, removal:- Pulse generator (gross examination only).CT/TLA 04/03/2023 Performed By: #### S ####[facility] LABCLIA [id number] [address] FINAL PERFORMING LAB Normal [facility] Comment on above: Order Comment: Speci men Type: DEVICE SPECIMENOrdering Facility: [facility] Address: [address] [place] [address] Result Comment: Diag nostic interpretation performed at [facility], [address] [place] [address] CLIA# [id number] Director: Jarrod Izquierdo M.D. Performed By: #### S ####[facility] [id number] [place] [address] [place] GROSS DESCRIPTION A. HARDWARE Normal [facility] Comment on above: Order Comment: Speci men Type: DEVICE SPECIMENOrdering Facility: [facility] Address: [address] [place] [address] Result Comment: Rece ived in formalin labeled with hardware, ICD is a grossly unremarkable pulse generator battery measuring 7.0 x 5.5 x 1.1 cm. There are no defects present. Inscribed on the device is [employer] ICD model D150 type VVIR SN [id number] . There is no attached soft tissue present. No sections are submitted. The specimen is reviewed with Dr. Best.TLA April 03, 2023 12:57 PMGross examination performed at [facility], [address] [place] [address] Performed By: #### S ####[facility] [id number] [place] [address] [place] CBC panel Auto (Bld)on 03-30 Erythrocyte distribution width (RBC) [Ratio] 20.5 % High 11.5-15.0 [facility] Comment on above: Order Comment: Speci men Type: BLOOD SPECIMENOrdering Facility: [facility] Address: [address] [place] [address] Performed By: #### 5 8410-2 ####[facility] [id number] [place] [address] [place] Hematocrit (Bld) [Volume fraction] 35.3 % Low 39.0-51.0 [facility] Comment on above: Order Comment: Speci men Type: BLOOD SPECIMENOrdering Facility: [facility] Address: [address] [place] [address] Performed By: #### 5 8410-2 ####[facility] LABIA [id number] [place] [address] [place] Hemoglobin (Bld) [Mass/Vol] 11.0 g/dL Low 13.0-17.0 [facility] Comment on above: Order Comment: Speci men Type: BLOOD SPECIMENOrdering Facility: [facility] Address: [address] [place] [address] Performed By: #### 5 8410-2 ####[facility] LABIA [id number] [place] [address] [place] MCH (RBC) [Entitic mass] 24.8 pg Low 26.0-34.0 [facility] Comment on above: Order Comment: Speci men Type: BLOOD SPECIMENOrdering Facility: [facility] Address: [address] [place] [address] Performed By: #### 5 8410-2 ####[facility] [id number] [address] [place] MCHC (RBC) [Mass/Vol] 31.2 g/dL Normal 30.5-36.0 [facility] Comment on above: Order Comment: Speci men Type: BLOOD SPECIMENOrdering Facility: [facility] Address: [address] [place] [address] Performed By: #### 5 8410-2 ####[facility] [id number] [place] [address] [place] MCV (RBC) [Entitic vol] 79.5 fL Low 80.0-100.0 [facility] Comment on above: Order Comment: Speci men Type: BLOOD SPECIMENOrdering Facility: [facility] Address: [address] [place] [address] Performed By: #### 5 8410-2 ####[facility] [id number] [place] [address] [place] Nucleated RBC (Bld) [#/Vol] 0.02 10*3/uL High <0.01 [facility] Comment on above: Order Comment: Speci men Type: BLOOD SPECIMENOrdering Facility: [facility] Address: [address] [place], [place] [address] Performed By: #### 5 8410-2 ####[facility] LABCLIA [id number] [place] [address] [place] Platelet mean volume (Bld) [Entitic vol] 9.6 fL Normal 9.0-12.7 [facility] Comment on above: Order Comment: Speci men Type: BLOOD SPECIMENOrdering Facility: [facility] Address: [address] [place], [place] [address] Performed By: #### 5 8410-2 ####[facility] LABCLIA [id number] [place] [address] [place] Platelets (Bld) [#/Vol] 243 10*3/uL Normal 150-400 [facility] Comment on above: Order Comment: Speci men Type: BLOOD SPECIMENOrdering Facility: [facility] [facility] Address: [address] [place], [place] [address] Performed By: #### 5 8410-2 ####[facility] LABCLIA [id number] [place] [address] [place] RBC (Bld) [#/Vol] 4.44 10*6/uL Normal 4.20-6.00 [facility] Comment on above: Order Comment: Speci men Type: BLOOD SPECIMENOrdering Facility: [facility] Address: [address] [place] [address] Performed By: #### 5 8410-2 ####[facility] LABCLIA [id number] [place] [address] [place] WBC (Bld) [#/Vol] 7.93 10*3/uL Normal 3.70-11.00 [facility] Comment on above: Order Comment: Speci men Type: BLOOD SPECIMENOrdering Facility: [facility] Address: [address] [place] [address] Performed By: #### 5 8410-2 ####[facility] LABCLIA [id number] [place] [address] [place] CONSULTon 03-30-2023 CONSULT Normal [facility] CONSULT PROGon 03-30-2023 CONSULT PROG Normal [facility] Comprehensive metabolic 2000 panelon 03-30-2023 Albumin [Mass/Vol] 3.5 g/dL Low 3.9-4.9 [facility] Comment on above: Order Comment: Speci men Type: BLOOD SPECIMENOrdering Facility: [facility] Address: [address] [place] [address] Performed By: #### 2 4323-8 ####[facility] LABCLIA [id number] [place] [address] [place] ALP [Catalytic activity/Vol] 137 U/L High 38-113 [facility] Comment on above: Order Comment: Speci men Type: BLOOD SPECIMENOrdering Facility: [facility] Address: [address] [place] [address] Performed By: #### 2 4323-8 ####[facility] LABCLIA [id number] [place] [address] [place] ALT [Catalytic activity/Vol] 23 U/L Normal 10-54 [facility] Comment on above: Order Comment: Speci men Type: BLOOD SPECIMENOrdering Facility: [facility] Address: [address] [place], [place] [address] Performed By: #### 2 4323-8 ####[facility] LABCLIA [id number] [place] [address] [place] Anion gap [Moles/Vol] 14 mmol/L Normal 9-18 [facility] Comment on above: Order Comment: Speci men Type: BLOOD SPECIMENOrdering Facility: [facility] Address: [address] Performed By: #### 2 4323-8 ####[facility] LABCLIA [id number] [place] [address] [place] AST [Catalytic activity/Vol] 24 U/L Normal 14-40 [facility] Comment on above: Order Comment: Speci men Type: BLOOD SPECIMENOrdering Facility: [facility] Address: [address] Performed By: #### 2 4323-8 ####[facility] LABCLIA [id number] [place] [address] [place] Bilirubin [Mass/Vol] 1.6 mg/dL High 0.2-1.3 [facility] Comment on above: Order Comment: Speci men Type: BLOOD SPECIMENOrdering Facility: [facility] Address: [address] Performed By: #### 2 4323-8 ####[facility] LABCLIA [id number] [place] [address] [place] Calcium [Mass/Vol] 9.5 mg/dL Normal 8.5-10.2 [facility] Comment on above: Order Comment: Speci men Type: BLOOD SPECIMENOrdering Facility: [facility] Address: [address] Performed By: #### 2 4323-8 ####[facility] LABCLIA [id number] [place] [address] [place] Chloride [Moles/Vol] 95 mmol/L Low 97-105 [facility] Comment on above: Order Comment: Speci men Type: BLOOD SPECIMENOrdering Facility: [facility] Address: [address] Performed By: #### 2 4323-8 ####[facility] LABCLIA [id number] [place] [address] [place] CO2 [Moles/Vol] 23 mmol/L Normal 22-30 [facility] Comment on above: Order Comment: Speci men Type: BLOOD SPECIMENOrdering Facility: [facility] Address: [address] [place] [address] Performed By: #### 2 4323-8 ####[facility] LABIA [id number] [address] [place] Creatinine [Mass/Vol] 2.12 mg/dL High 0.73-1.22 [facility] Comment on above: Order Comment: Speci men Type: BLOOD SPECIMENOrdering Facility: [facility] Address: [address] [place] [address] Performed By: #### 2 4323-8 ####[facility] [id number] [address] STATES [place] [facility] Creatinine and Glomerular filtration rate.predicted panel (S/P/Bld) 34 mL/min/1.73m??? Low >=60 [facility] Comment on above: Order Comment: Speci men Type: BLOOD SPECIMENOrdering Facility: [facility] Address: [address] [place] [address] Result Comment: Syl mated Glomerular Filtration Rate [...] actual GFR. Performed By: #### 2 4323-8 ####[facility] LABIA [id number] [address] [place] Glucose [Mass/Vol] 145 mg/dL High 74-99 [facility] Comment on above: Order Comment: Speci men Type: BLOOD SPECIMENOrdering Facility: [facility] Address: [address] [address] Result Comment: The [place] [employer] (ADA) provides guidance for cutoff [...] Standards of Medical Care in Diabetes 2016, [place] [employer]. Diabetes Care. 2016.39(Suppl 1). Performed By: #### 2 4323-8 ####[facility] LABIA [id number] [place] [address] [place] Potassium [Moles/Vol] 4.5 mmol/L Normal 3.7-5.1 [facility] Comment on above: Order Comment: Speci men Type: BLOOD SPECIMENOrdering Facility: [facility] Address: [address] [address] Performed By: #### 2 4323-8 ####[facility] LABIA [id number] [place] [address] [place] Protein [Mass/Vol] 6.5 g/dL Normal 6.3-8.0 [facility] Comment on above: Order Comment: Speci men Type: BLOOD SPECIMENOrdering Facility: [facility] Address: [address] [address] Performed By: #### 2 4323-8 ####[facility] LABIA [id number] [place] [address] [place] Sodium [Moles/Vol] 132 mmol/L Low 136-144 [facility] Comment on above: Order Comment: Speci men Type: BLOOD SPECIMENOrdering Facility: [facility] Address: [address] [address] Performed By: #### 2 4323-8 ####[facility] LABCLIA [id number] [place] [address] [place] Urea nitrogen [Mass/Vol] 54 mg/dL High 9-24 [facility] Comment on above: Order Comment: Speci men Type: BLOOD SPECIMENOrdering Facility: [facility] Address: [address] [place] [address] Performed By: #### 2 4323-8 ####[facility] LABCLIA [id number] [place] [address] [place] NUTRITIONon 03-30-2023 NUTRITION Normal [facility] TYPE + SCREENon 03-30-2023 ABO A Normal [facility] Comment on above: Order Comment: Speci men Type: BLOOD SPECIMENOrdering Facility: [facility] Address: [address] [place] [address] Performed By: #### T SCR ####[facility] BANKCLIA [id number] [place] [address] [place] HISTORICAL AB SCR STATUS Negative Normal [facility] Comment on above: Order Comment: Speci men Type: BLOOD SPECIMENOrdering Facility: [facility] Address: [address] [place] [address] Performed By: #### T SCR ####[facility] BANKCLIA [id number] [place] [address] [place] Rh Nom (Bld) Positive Normal [facility] Comment on above: Order Comment: Speci men Type: BLOOD SPECIMENOrdering Facility: [facility] Address: [address] [place], [place] [address] Performed By: #### T SCR ####[facility] BANKCLIA [id number] [place] [address] [place] TYPE AND SCREEN EXPIRATION 04/02/2023 23:59 Normal [facility] Comment on above: Order Comment: Speci men Type: BLOOD SPECIMENOrdering Facility: [facility] Address: [address] [place] [address] Performed By: #### T SCR ####[facility] BANKCLIA [id number] [place] [address] [place] CASE MANAGEMon 03-29-2023 CASE MANAGEM Normal [facility] CBC panel Auto (Bld)on 03-29 Erythrocyte distribution width (RBC) [Ratio] 21.1 % High 11.5-15.0 [facility] Comment on above: Order Comment: Speci men Type: BLOOD SPECIMENOrdering Facility: [facility] Address: [address] [place] [address] Performed By: #### 5 8410-2 ####[facility] LABCLIA [id number] [place] [address] [place] Hematocrit (Bld) [Volume fraction] 36.8 % Low 39.0-51.0 [facility] Comment on above: Order Comment: Speci men Type: BLOOD SPECIMENOrdering Facility: [facility] Address: [address] [place] [address] Performed By: #### 5 8410-2 ####[facility] LABCLIA [id number] [place] [address] [place] Hemoglobin (Bld) [Mass/Vol] 11.4 g/dL Low 13.0-17.0 [facility] Comment on above: Order Comment: Speci men Type: BLOOD SPECIMENOrdering Facility: [facility] Address: [address] [place] [address] Performed By: #### 5 8410-2 ####[facility] LABIA [id number] [place] [address] [place] MCH (RBC) [Entitic mass] 25.1 pg Low 26.0-34.0 [facility] Comment on above: Order Comment: Speci men Type: BLOOD SPECIMENOrdering Facility: [facility] Address: [address] Performed By: #### 5 8410-2 ####[facility] [id number] [place] [address] [place] [facility] MCHC (RBC) [Mass/Vol] 31.0 g/dL Normal 30.5-36.0 [facility] Comment on above: Order Comment: Speci men Type: BLOOD SPECIMENOrdering Facility: [facility] Address: [address] Performed By: #### 5 8410-2 ####[facility] [id number] [place] [address] [place] MCV (RBC) [Entitic vol] 80.9 fL Normal 80.0-100.0 [facility] Comment on above: Order Comment: Speci men Type: BLOOD SPECIMENOrdering Facility: [facility] Address: [address] Performed By: #### 5 8410-2 ####[facility] [id number] [place] [address] [place] Nucleated RBC (Bld) [#/Vol] 0.02 10*3/uL High <0.01 [facility] Comment on above: Order Comment: Speci men Type: BLOOD SPECIMENOrdering Facility: [facility] Address: [address] Performed By: #### 5 8410-2 ####[facility] [id number] [place] [address] [place] Platelet mean volume (Bld) [Entitic vol] 9.8 fL Normal 9.0-12.7 [facility] Comment on above: Order Comment: Speci men Type: BLOOD SPECIMENOrdering Facility: [facility] Address: [address] [place], [place] [address] Performed By: #### 5 8410-2 ####[facility] LABIA [id number] [place] [address] [place] Platelets (Bld) [#/Vol] 231 10*3/uL Normal 150-400 [facility] Comment on above: Order Comment: Speci men Type: BLOOD SPECIMENOrdering Facility: [facility] Address: [address] [place] [address] Performed By: #### 5 8410-2 ####[facility] LABIA [id number] [place] [address] [place] RBC (Bld) [#/Vol] 4.55 10*6/uL Normal 4.20-6.00 [facility] Comment on above: Order Comment: Speci men Type: BLOOD SPECIMENOrdering Facility: [facility] Address: [address] [place] [address] Performed By: #### 5 8410-2 ####[facility] [id number] [place] [address] [place] WBC (Bld) [#/Vol] 8.72 10*3/uL Normal 3.70-11.00 [facility] Comment on above: Order Comment: Speci men Type: BLOOD SPECIMENOrdering Facility: [facility] Address: [address] [place] [address] Performed By: #### 5 8410-2 ####[facility] [id number] [place] [address] [place] CONSULT PROGon 03-29-2023 CONSULT PROG Normal [facility] Comprehensive metabolic 2000 panelon 03-29-2023 Albumin [Mass/Vol] 3.5 g/dL Low 3.9-4.9 [facility] Comment on above: Order Comment: Speci men Type: BLOOD SPECIMENOrdering Facility: [facility] Address: [address] [place] [address] Performed By: #### 2 4323-8 ####[facility] LABCLIA [id number] [place] [address] [place] ALP [Catalytic activity/Vol] 145 U/L High 38-113 [facility] Comment on above: Order Comment: Speci men Type: BLOOD SPECIMENOrdering Facility: [facility] Address: [address] [place] [address] Performed By: #### 2 4323-8 ####[facility] LABCLIA [id number] [place] [address] [place] ALT [Catalytic activity/Vol] 31 U/L Normal 10-54 [facility] Comment on above: Order Comment: Speci men Type: BLOOD SPECIMENOrdering Facility: [facility] Address: [address] [place] [address] Performed By: #### 2 4323-8 ####[facility] LABCLIA [id number] [place] [address] [place] Anion gap [Moles/Vol] 16 mmol/L Normal 9-18 [facility] Comment on above: Order Comment: Speci men Type: BLOOD SPECIMENOrdering Facility: [facility] Address: [address] [place] [address] Performed By: #### 2 4323-8 ####[facility] LABCLIA [id number] [place] [address] [place] AST [Catalytic activity/Vol] 24 U/L Normal 14-40 [facility] Comment on above: Order Comment: Speci men Type: BLOOD SPECIMENOrdering Facility: [facility] Address: [address] [place] [address] Performed By: #### 2 4323-8 ####[facility] LABCLIA [id number] [place] [address] [place] Bilirubin [Mass/Vol] 1.8 mg/dL High 0.2-1.3 [facility] Comment on above: Order Comment: Speci men Type: BLOOD SPECIMENOrdering Facility: [facility] Address: [address] [address] Performed By: #### 2 4323-8 ####[facility] LABCLIA [id number] [place] [address] [place] Calcium [Mass/Vol] 9.3 mg/dL Normal 8.5-10.2 [facility] Comment on above: Order Comment: Speci men Type: BLOOD SPECIMENOrdering Facility: [facility] Address: [address] [address] Performed By: #### 2 4323-8 ####[facility] LABCLIA [id number] [place] [address] [place] Chloride [Moles/Vol] 95 mmol/L Low 97-105 [facility] Comment on above: Order Comment: Speci men Type: BLOOD SPECIMENOrdering Facility: [facility] Address: [address] [address] Performed By: #### 2 4323-8 ####[facility] LABCLIA [id number] [place] [address] [place] CO2 [Moles/Vol] 21 mmol/L Low 22-30 [facility] Comment on above: Order Comment: Speci men Type: BLOOD SPECIMENOrdering Facility: [facility] Address: [address] Performed By: #### 2 4323-8 ####[facility] LABCLIA [id number] [place] [address] [place] Creatinine [Mass/Vol] 2.15 mg/dL High 0.73-1.22 [facility] Comment on above: Order Comment: Speci men Type: BLOOD SPECIMENOrdering Facility: [facility] Address: [address] Performed By: #### 2 4323-8 ####[facility] LABCLIA [id number] [place] [address] [place] Creatinine and Glomerular filtration rate.predicted panel (S/P/Bld) 33 mL/min/1.73m??? Low >=60 [facility] Comment on above: Order Comment: Joseline clemons Type: BLOOD SPECIMENOrdering Facility: [facility] Address: [address] [address] Result Comment: Syl mated Glomerular Filtration Rate [...] actual GFR. Performed By: #### 2 4323-8 ####[facility] [id number] [place] [address] [place] Glucose [Mass/Vol] 212 mg/dL High 74-99 [facility] Comment on above: Order Comment: Joseline clemons Type: BLOOD SPECIMENOrdering Facility: [facility] Address: [address] [place] [address] Result Comment: The [place] [employer] (ADA) provides guidance for cutoff [...] Standards of Medical Care in Diabetes 2016, [place] [employer]. Diabetes Care. 2016.39(Suppl 1). Performed By: #### 2 4323-8 ####[facility] LABIA [id number] [id number] [address] [place] Potassium [Moles/Vol] 4.4 mmol/L Normal 3.7-5.1 [facility] Comment on above: Order Comment: Speci men Type: BLOOD SPECIMENOrdering Facility: [facility] Address: [address] [place] [address] Performed By: #### 2 4323-8 ####[facility] LABCLIA [id number] [place] [address] [place] Protein [Mass/Vol] 6.4 g/dL Normal 6.3-8.0 [facility] Comment on above: Order Comment: Speci men Type: BLOOD SPECIMENOrdering Facility: [facility] Address: [address] [place] [address] Performed By: #### 2 4323-8 ####[facility] LABCLIA [id number] [address] [place] Sodium [Moles/Vol] 132 mmol/L Low 136-144 [facility] Comment on above: Order Comment: Speci men Type: BLOOD SPECIMENOrdering Facility: [facility] Address: [address] [place] [address] Performed By: #### 2 4323-8 ####[facility] LABCLIA [id number] [place] [address] [place] Urea nitrogen [Mass/Vol] 62 mg/dL High 9-24 [facility] Comment on above: Order Comment: Speci men Type: BLOOD SPECIMENOrdering Facility: [facility] Address: [address] [place] [address] Performed By: #### 2 4323-8 ####[facility] LABIA [id number] [place] [address] [place] Fact Xa PPP-aCncon 3 Coagulation factor X activated act Coag Qn (PPP) 0.20 IU/mL High <0.10 [facility] Comment on above: Order Comment: Speci men Type: BLOOD SPECIMENOrdering Facility: [facility] Address: [address] [address] Result Comment: The recommended therapeutic range for treatment of venous and arterial thrombosis with intravenous unfractionated heparin is an anti Xa activity level of 0.3 to 0.7 IU/mL. In patients with concomitant therapy with thrombolytic agents and/or platelet glycoprotein IIb/IIIa antagonists, the recommended therapeutic range is an anti Xa activity level of 0.2 to 0.5 IU/mL. Performed By: #### 3 217-7 ####[facility] LABIA [id number] [place] [address] [place] Coagulation factor X activated act Coag Qn (PPP) 0.14 IU/mL High <0.10 [facility] Comment on above: Order Comment: Joseline clemons Type: BLOOD SPECIMENOrdering Facility: [facility] Address: [address] [place] [address] Result Comment: The recommended therapeutic range for treatment of venous and arterial thrombosis with intravenous unfractionated heparin is an anti Xa activity level of 0.3 to 0.7 IU/mL. In patients with concomitant therapy with thrombolytic agents and/or platelet glycoprotein IIb/IIIa antagonists, the recommended therapeutic range is an anti Xa activity level of 0.2 to 0.5 IU/mL. Performed By: #### 3 217-7 ####[facility] [id number] [place] [address] [place] PTT, ANTICOAGULANT THERAPYon 03-29-2023 aPTT Coag (PPP) [Time] 61.0 s High 23.0-32.4 [facility] Comment on above: Order Comment: Joseline clemons Type: BLOOD SPECIMENOrdering Facility: [facility] Address: [address] [place] [address] Performed By: #### P TTAC ####[facility] LABIA [id number] [place] [address] [place] aPTT Coag (PPP) [Time] 32.9 s High 23.0-32.4 [facility] Comment on above: Order Comment: Speci men Type: BLOOD SPECIMENOrdering Facility: [facility] Address: [address] [place] [address] Performed By: #### P TTAC, 30052-3 ####[facility] LABIA [id number] [address] [place] aPTT Coag (PPP) [Time] 123.5 s High 23.0-32.4 [facility] Comment on above: Order Comment: Speci men Type: BLOOD SPECIMENOrdering Facility: [facility] Address: [address] [place] [address] Result Comment: Samp le checked for clot. Result rechecked. Performed By: #### P TTAC ####[facility] [id number] [place] [address] [place] aPTT Coag (PPP) [Time] s High 23.0-32.4 [facility] Comment on above: Order Comment: Speci men Type: BLOOD SPECIMENOrdering Facility: [facility] Address: [address] [place] [address] Result Comment: Samp le checked for clot.Result rechecked. Performed By: #### P TTAC ####[facility] LABIA [id number] [place] [address] [place] Basic metabolic 2000 panelon 03-28-2023 Anion gap [Moles/Vol] 12 mmol/L Normal 9-18 [facility] Comment on above: Order Comment: Speci men Type: BLOOD SPECIMENOrdering Facility: [facility] Address: [address] [place] [address] Performed By: #### 2 4321-2 ####[facility] LABIA [id number] [place] [address] [place] Calcium [Mass/Vol] 9.6 mg/dL Normal 8.5-10.2 [facility] Comment on above: Order Comment: Speci men Type: BLOOD SPECIMENOrdering Facility: [facility] Address: [address] [address] Performed By: #### 2 4321-2 ####[facility] LABCLIA [id number] [place] [address] [place] Chloride [Moles/Vol] 94 mmol/L Low 97-105 [facility] Comment on above: Order Comment: Speci men Type: BLOOD SPECIMENOrdering Facility: [facility] Address: [address] [address] Performed By: #### 2 4321-2 ####[facility] LABCLIA [id number] [place] [address] [place] CO2 [Moles/Vol] 25 mmol/L Normal 22-30 [facility] Comment on above: Order Comment: Speci men Type: BLOOD SPECIMENOrdering Facility: [facility] Address: [address] [place] [address] Performed By: #### 2 4321-2 ####[facility] LABCLIA [id number] [place] [address] [place] Creatinine [Mass/Vol] 2.35 mg/dL High 0.73-1.22 [facility] Comment on above: Order Comment: Speci men Type: BLOOD SPECIMENOrdering Facility: [facility] Address: [address] [place], [place] [address] Performed By: #### 2 4321-2 ####[facility] LABCLIA [id number] [place] [address] [place] Creatinine and Glomerular filtration rate.predicted panel (S/P/Bld) 30 mL/min/1.73m??? Low >=60 [facility] Comment on above: Order Comment: Speci men Type: BLOOD SPECIMENOrdering Facility: [facility] Address: [address] [place], [place] [address] Result Comment: Syl mated Glomerular Filtration Rate [...] actual GFR. Performed By: #### 2 4321-2 ####[facility] LABCLIA [id number] [place] [address] [place] Glucose [Mass/Vol] 172 mg/dL High 74-99 [facility] Comment on above: Order Comment: Joseline clemons Type: BLOOD SPECIMENOrdering Facility: [facility] Address: [address] [address] Result Comment: The [place] [employer] (ADA) provides guidance for cutoff [...] Standards of Medical Care in Diabetes 2016, [place] [employer]. Diabetes Care. 2016.39(Suppl 1). Performed By: #### 2 4321-2 ####[facility] LABCLIA [id number] [place] [address] [place] Potassium [Moles/Vol] 4.2 mmol/L Normal 3.7-5.1 [facility] Comment on above: Order Comment: Joseline clemons Type: BLOOD SPECIMENOrdering Facility: [facility] Address: [address] [id number] Performed By: #### 2 4321-2 ####[facility] LABCLIA [id number] [place] [address] [place] Sodium [Moles/Vol] 131 mmol/L Low 136-144 [facility] Comment on above: Order Comment: Speci men Type: BLOOD SPECIMENOrdering Facility: [facility] Address: [address] Performed By: #### 2 4321-2 ####[facility] LABCLIA [id number] [facility] [address] [place] Urea nitrogen [Mass/Vol] 62 mg/dL High 9-24 [facility] Comment on above: Order Comment: Speci men Type: BLOOD SPECIMENOrdering Facility: [facility] Address: [address] Performed By: #### 2 4321-2 ####[facility] LABCLIA [id number] [place] [address] [place] CARD CATH DIAGNOSTICon 03-28 CARD CATH DIAGNOSTIC Normal [facility] CBC panel Auto (Bld)on 03-28 Erythrocyte distribution width (RBC) [Ratio] 20.6 % High 11.5-15.0 [facility] Comment on above: Order Comment: Speci men Type: BLOOD SPECIMENOrdering Facility: [facility] Address: [address] [place], [place] [address] Performed By: #### 5 8410-2 ####[facility] LABCLIA [id number] [place] [address] [place] Hematocrit (Bld) [Volume fraction] 35.9 % Low 39.0-51.0 [facility] Comment on above: Order Comment: Speci men Type: BLOOD SPECIMENOrdering Facility: [facility] Address: [address] Performed By: #### 5 8410-2 ####[facility] LABCLIA [id number] [facility] [place] [address] [place] Hemoglobin (Bld) [Mass/Vol] 11.1 g/dL Low 13.0-17.0 [facility] Comment on above: Order Comment: Speci men Type: BLOOD SPECIMENOrdering Facility: [facility] Address: [address] Performed By: #### 5 8410-2 ####[facility] LABIA [id number] [address] [place] MCH (RBC) [Entitic mass] 24.7 pg Low 26.0-34.0 [facility] Comment on above: Order Comment: Speci men Type: BLOOD SPECIMENOrdering Facility: [facility] Address: [address] [address] Performed By: #### 5 8410-2 ####[facility] [id number] [address] [place] MCHC (RBC) [Mass/Vol] 30.9 g/dL Normal 30.5-36.0 [facility] Comment on above: Order Comment: Speci men Type: BLOOD SPECIMENOrdering Facility: [facility] Address: [address] [place] [address] Performed By: #### 5 8410-2 ####[facility] LABIA [id number] [address] [place] MCV (RBC) [Entitic vol] 80.0 fL Normal 80.0-100.0 [facility] Comment on above: Order Comment: Speci men Type: BLOOD SPECIMENOrdering Facility: [facility] Address: [address] Performed By: #### 5 8410-2 ####[facility] LABIA [id number] [address] [place] Nucleated RBC (Bld) [#/Vol] 10*3/uL Normal <0.01 [facility] Comment on above: Order Comment: Speci men Type: BLOOD SPECIMENOrdering Facility: [facility] Address: [address] [place] [address] Performed By: #### 5 8410-2 ####[facility] LABCLIA [id number] [place] [address] [place] Platelet mean volume (Bld) [Entitic vol] 9.4 fL Normal 9.0-12.7 [facility] Comment on above: Order Comment: Speci men Type: BLOOD SPECIMENOrdering Facility: [facility] Address: [address] [place], [place] [address] Performed By: #### 5 8410-2 ####[facility] LABCLIA [id number] [place] [address] [place] Platelets (Bld) [#/Vol] 224 10*3/uL Normal 150-400 [facility] Comment on above: Order Comment: Speci men Type: BLOOD SPECIMENOrdering Facility: [facility] Address: [address] [place], [place] [address] Performed By: #### 5 8410-2 ####[facility] LABCLIA [id number] [place] [address] [place] RBC (Bld) [#/Vol] 4.49 10*6/uL Normal 4.20-6.00 [facility] Comment on above: Order Comment: Speci men Type: BLOOD SPECIMENOrdering Facility: [facility] Address: [address] [place] [address] Performed By: #### 5 8410-2 ####[facility] LABCLIA [id number] [place] [address] [place] WBC (Bld) [#/Vol] 7.95 10*3/uL Normal 3.70-11.00 [facility] Comment on above: Order Comment: Speci men Type: BLOOD SPECIMENOrdering Facility: [facility] Address: [address] [place], [place] [address] Performed By: #### 5 8410-2 ####[facility] LABCLIA [id number] [place] [address] [place] CONSULT PROGon 03-28-2023 CONSULT PROG Normal [facility] Comprehensive metabolic 2000 panelon 03-28-2023 Albumin [Mass/Vol] 3.3 g/dL Low 3.9-4.9 [facility] Comment on above: Order Comment: Speci men Type: BLOOD SPECIMENOrdering Facility: [facility] Address: [address] [place] [address] Performed By: #### 2 4323-8 ####[facility] LABIA [id number] [place] [address] [place] ALP [Catalytic activity/Vol] 139 U/L High 38-113 [facility] Comment on above: Order Comment: Speci men Type: BLOOD SPECIMENOrdering Facility: [facility] Address: [address] [place] [address] Performed By: #### 2 4323-8 ####[facility] LABIA [id number] [place] [address] [place] ALT [Catalytic activity/Vol] 29 U/L Normal 10-54 [facility] Comment on above: Order Comment: Speci men Type: BLOOD SPECIMENOrdering Facility: [facility] Address: [address] [place], [place] [address] Performed By: #### 2 4323-8 ####[facility] LABIA [id number] [place] [address] [place] Anion gap [Moles/Vol] 12 mmol/L Normal 9-18 [facility] Comment on above: Order Comment: Speci men Type: BLOOD SPECIMENOrdering Facility: [facility] Address: [address] [place], [place] [address] Performed By: #### 2 4323-8 ####[facility] LABIA [id number] [place] [address] [place] AST [Catalytic activity/Vol] 24 U/L Normal 14-40 [facility] Comment on above: Order Comment: Speci men Type: BLOOD SPECIMENOrdering Facility: [facility] Address: [address] Performed By: #### 2 4323-8 ####[facility] LABCLIA [id number] [place] [address] [place] Bilirubin [Mass/Vol] 2.1 mg/dL High 0.2-1.3 [facility] Comment on above: Order Comment: Speci men Type: BLOOD SPECIMENOrdering Facility: [facility] Address: [address] Performed By: #### 2 4323-8 ####[facility] LABCLIA [id number] [place] [address] [place] Calcium [Mass/Vol] 9.2 mg/dL Normal 8.5-10.2 [facility] Comment on above: Order Comment: Speci men Type: BLOOD SPECIMENOrdering Facility: [facility] Address: [address] [place], [place] [address] Performed By: #### 2 4323-8 ####[facility] LABCLIA [id number] [place] [address] [place] Chloride [Moles/Vol] 93 mmol/L Low 97-105 [facility] Comment on above: Order Comment: Speci men Type: BLOOD SPECIMENOrdering Facility: [facility] Address: [address] Performed By: #### 2 4323-8 ####[facility] LABCLIA [id number] [place] [address] [place] CO2 [Moles/Vol] 24 mmol/L Normal 22-30 [facility] Comment on above: Order Comment: Speci men Type: BLOOD SPECIMENOrdering Facility: [facility] Address: [address] Performed By: #### 2 4323-8 ####[facility] LABIA [id number] [address] STATES OF [facility] Creatinine [Mass/Vol] 2.16 mg/dL High 0.73-1.22 [facility] Comment on above: Order Comment: Speci men Type: BLOOD SPECIMENOrdering Facility: [facility] Address: [address] [place], [place] [address] Performed By: #### 2 4323-8 ####[facility] LABIA [id number] [address] OF [facility] Creatinine and Glomerular filtration rate.predicted panel (S/P/Bld) 33 mL/min/1.73m??? Low >=60 [facility] Comment on above: Order Comment: Speci men Type: BLOOD SPECIMENOrdering Facility: [facility] Address: [address] [place] [address] Result Comment: Syl mated Glomerular Filtration Rate [...] actual GFR. Performed By: #### 2 4323-8 ####[facility] LABIA [id number] [place] [address] [place] Glucose [Mass/Vol] 214 mg/dL High 74-99 [facility] Comment on above: Order Comment: Speci men Type: BLOOD SPECIMENOrdering Facility: [facility] Address: [address] [place], [place] [address] Result Comment: The [place] [employer] (ADA) provides guidance for cutoff [...] Standards of Medical Care in Diabetes 2016, [place] [employer]. Diabetes Care. 2016.39(Suppl 1). Performed By: #### 2 4323-8 ####[facility] LABCLIA [id number] [place] [address] [place] Potassium [Moles/Vol] 4.4 mmol/L Normal 3.7-5.1 [facility] Comment on above: Order Comment: Speci men Type: BLOOD SPECIMENOrdering Facility: [facility] Address: [address] [place] [address] Performed By: #### 2 4323-8 ####[facility] LABIA [id number] [place] [address] [place] Protein [Mass/Vol] 6.2 g/dL Low 6.3-8.0 [facility] Comment on above: Order Comment: Speci men Type: BLOOD SPECIMENOrdering Facility: [facility] Address: [address] [place] [address] Performed By: #### 2 4323-8 ####[facility] LABCLIA [id number] [place] [address] [place] Sodium [Moles/Vol] 129 mmol/L Low 136-144 [facility] Comment on above: Order Comment: Speci men Type: BLOOD SPECIMENOrdering Facility: [facility] Address: [address] [place] [address] Performed By: #### 2 4323-8 ####[facility] LABCLIA [id number] [place] [address] [place] Urea nitrogen [Mass/Vol] 56 mg/dL High 9-24 [facility] Comment on above: Order Comment: Speci men Type: BLOOD SPECIMENOrdering Facility: [facility] Address: [address] [place] [address] Performed By: #### 2 4323-8 ####[facility] LABCLIA [id number] [place] [address] [place] NURSING PROGon 03-28-2023 NURSING PROG Normal [facility] PT EDon 03-28-2023 PT ED Normal [facility] PT panel Coag (PPP)on 2022 INR Coag (PPP) [Relative time] 1.6 {INR} High 0.9-1.3 [facility] Comment on above: Order Comment: Joseline clemons Type: BLOOD SPECIMENOrdering Facility: [facility] Address: [address] [place] [address] Result Comment: Baylee min K Antagonist (VKA) Therapeutic Range: INR 2 to 3 (Target INR of 2.5)Note: For patients treated with VKA drugs, such as warfarin, the [place] [employer] 2012 Guideline recommends [...] al. Chest 2012, 141:7S-47STrudy RA, et al. [facility] 2017, 70: 252-289 Performed By: #### 3 4528-0, 81735-0 ####[facility] LABCLIA [id number] [place] [address] [place] PT Coag (PPP) [Time] 16.5 s High 9.7-13.0 [facility] Comment on above: Order Comment: Speci men Type: BLOOD SPECIMENOrdering Facility: [facility] Address: [address] Performed By: #### 3 4528-0, 67370-6 ####[facility] LABCLIA [id number] [place] [address] [place] aPTT PPPon 03-28-2023 aPTT Coag (PPP) [Time] 33.6 s High 23.0-32.4 [facility] Comment on above: Order Comment: Speci men Type: BLOOD SPECIMENOrdering Facility: [facility] Address: [address] [address] Performed By: #### 3 4528-0, 90257-0 ####[facility] LABIA [id number] [address] [place] CASE MANAGEMon 03-27-2023 CASE MANAGEM Normal [facility] CBC panel Auto (Bld)on 03-27 Erythrocyte distribution width (RBC) [Ratio] 20.8 % High 11.5-15.0 [facility] Comment on above: Order Comment: Speci men Type: BLOOD SPECIMENOrdering Facility: [facility] Address: [address] [place] [address] Performed By: #### 5 8410-2 ####[facility] LABCLIA [id number] [place] [address] [place] Hematocrit (Bld) [Volume fraction] 35.1 % Low 39.0-51.0 [facility] Comment on above: Order Comment: Speci men Type: BLOOD SPECIMENOrdering Facility: [facility] Address: [address] [place], [place] [address] Performed By: #### 5 8410-2 ####[facility] LABCLIA [id number] [place] [address] [place] Hemoglobin (Bld) [Mass/Vol] 10.9 g/dL Low 13.0-17.0 [facility] Comment on above: Order Comment: Speci men Type: BLOOD SPECIMENOrdering Facility: [facility] Address: [address] Performed By: #### 5 8410-2 ####[facility] LABIA [id number] [address] [place] MCH (RBC) [Entitic mass] 24.9 pg Low 26.0-34.0 [facility] Comment on above: Order Comment: Speci men Type: BLOOD SPECIMENOrdering Facility: [facility] Address: [address] Performed By: #### 5 8410-2 ####[facility] LABIA [id number] [address] [place] MCHC (RBC) [Mass/Vol] 31.1 g/dL Normal 30.5-36.0 [facility] Comment on above: Order Comment: Speci men Type: BLOOD SPECIMENOrdering Facility: [facility] Address: [address] Performed By: #### 5 8410-2 ####[facility] [id number] [address] [place] MCV (RBC) [Entitic vol] 80.3 fL Normal 80.0-100.0 [facility] Comment on above: Order Comment: Speci men Type: BLOOD SPECIMENOrdering Facility: [facility] Address: [address] Performed By: #### 5 8410-2 ####[facility] LABIA [id number] [address] [place] Nucleated RBC (Bld) [#/Vol] 10*3/uL Normal <0.01 [facility] Comment on above: Order Comment: Speci men Type: BLOOD SPECIMENOrdering Facility: [facility] Address: [address] Performed By: #### 5 8410-2 ####[facility] LABCLIA [id number] [place] [address] [place] Platelet mean volume (Bld) [Entitic vol] 10.1 fL Normal 9.0-12.7 [facility] Comment on above: Order Comment: Speci men Type: BLOOD SPECIMENOrdering Facility: [facility] Address: [address] [place], [place] [address] Performed By: #### 5 8410-2 ####[facility] LABIA [id number] [place] [address] [place] Platelets (Bld) [#/Vol] 234 10*3/uL Normal 150-400 [facility] Comment on above: Order Comment: Speci men Type: BLOOD SPECIMENOrdering Facility: [facility] Address: [address] [place], [place] [address] Performed By: #### 5 8410-2 ####[facility] LABIA [id number] [place] [address] [place] RBC (Bld) [#/Vol] 4.37 10*6/uL Normal 4.20-6.00 [facility] Comment on above: Order Comment: Speci men Type: BLOOD SPECIMENOrdering Facility: [facility] Address: [address] [place] [address] Performed By: #### 5 8410-2 ####[facility] LABCLIA [id number] [place] [address] [place] WBC (Bld) [#/Vol] 10.25 10*3/uL Normal 3.70-11.00 [facility] Comment on above: Order Comment: Speci men Type: BLOOD SPECIMENOrdering Facility: [facility] Address: [address] [place], [place] [address] Performed By: #### 5 8410-2 ####[facility] LABCLIA [id number] [place] [address] [place] CONSULTon 03-27-2023 CONSULT Normal [facility] CONSULT PROGon 03-27-2023 CONSULT PROG Normal [facility] Comprehensive metabolic 2000 panelon 03-27-2023 Albumin [Mass/Vol] 3.3 g/dL Low 3.9-4.9 [facility] Comment on above: Order Comment: Speci men Type: BLOOD SPECIMENOrdering Facility: [facility] Address: [address] Performed By: #### 2 4323-8 ####[facility] LABCLIA [id number] [place] [address] [place] ALP [Catalytic activity/Vol] 141 U/L High 38-113 [facility] Comment on above: Order Comment: Speci men Type: BLOOD SPECIMENOrdering Facility: [facility] Address: [address] Performed By: #### 2 4323-8 ####[facility] LABCLIA [id number] [place] [address] [place] ALT [Catalytic activity/Vol] 36 U/L Normal 10-54 [facility] Comment on above: Order Comment: Speci men Type: BLOOD SPECIMENOrdering Facility: [facility] Address: [address] Performed By: #### 2 4323-8 ####[facility] LABCLIA [id number] [place] [address] [place] Anion gap [Moles/Vol] 13 mmol/L Normal 9-18 [facility] Comment on above: Order Comment: Speci men Type: BLOOD SPECIMENOrdering Facility: [facility] Address: [address] Performed By: #### 2 4323-8 ####[facility] LABCLIA [id number] [address] [address] [place] AST [Catalytic activity/Vol] 29 U/L Normal 14-40 [facility] Comment on above: Order Comment: Speci men Type: BLOOD SPECIMENOrdering Facility: [facility] Address: [address] [place], [place] [address] Performed By: #### 2 4323-8 ####[facility] LABCLIA [id number] [place] [address] [place] Bilirubin [Mass/Vol] 2.1 mg/dL High 0.2-1.3 [facility] Comment on above: Order Comment: Speci men Type: BLOOD SPECIMENOrdering Facility: [facility] Address: [address] [place], [place] [address] Performed By: #### 2 4323-8 ####[facility] LABCLIA [id number] [place] [address] [place] Calcium [Mass/Vol] 9.1 mg/dL Normal 8.5-10.2 [facility] Comment on above: Order Comment: Speci men Type: BLOOD SPECIMENOrdering Facility: [facility] Address: [address] [place], [place] [address] Performed By: #### 2 4323-8 ####[facility] LABCLIA [id number] [place] [address] [place] Chloride [Moles/Vol] 94 mmol/L Low 97-105 [facility] Comment on above: Order Comment: Speci men Type: BLOOD SPECIMENOrdering Facility: [facility] Address: [address] Performed By: #### 2 4323-8 ####[facility] LABCLIA [id number] [place] [address] [place] CO2 [Moles/Vol] 23 mmol/L Normal 22-30 [facility] Comment on above: Order Comment: Speci men Type: BLOOD SPECIMENOrdering Facility: [facility] Address: [address] [address] Performed By: #### 2 4323-8 ####[facility] LABIA [id number] [address] [place] Creatinine [Mass/Vol] 2.32 mg/dL High 0.73-1.22 [facility] Comment on above: Order Comment: Speci men Type: BLOOD SPECIMENOrdering Facility: [facility] Address: [address] [address] Performed By: #### 2 4323-8 ####[facility] LABIA [id number] [address] [place] Creatinine and Glomerular filtration rate.predicted panel (S/P/Bld) 30 mL/min/1.73m??? Low >=60 [facility] Comment on above: Order Comment: Speci men Type: BLOOD SPECIMENOrdering Facility: [facility] Address: [address] [place] [address] Result Comment: Syl mated Glomerular Filtration Rate [...] actual GFR. Performed By: #### 2 4323-8 ####[facility] LABIA [id number] [place] [address] [place] Glucose [Mass/Vol] 171 mg/dL High 74-99 [facility] Comment on above: Order Comment: Speci men Type: BLOOD SPECIMENOrdering Facility: [facility] Address: [address] [place] [address] Result Comment: The [place] [employer] (ADA) provides guidance for cutoff [...] Standards of Medical Care in Diabetes 2016, [place] [employer]. Diabetes Care. 2016.39(Suppl 1). Performed By: #### 2 4323-8 ####[facility] LABCLIA [id number] [place] [address] [place] Potassium [Moles/Vol] 4.3 mmol/L Normal 3.7-5.1 [facility] Comment on above: Order Comment: Speci men Type: BLOOD SPECIMENOrdering Facility: [facility] Address: [address] [address] Performed By: #### 2 4323-8 ####[facility] LABIA [id number] [place] [address] [place] Protein [Mass/Vol] 6.1 g/dL Low 6.3-8.0 [facility] Comment on above: Order Comment: Reneei men Type: BLOOD SPECIMENOrdering Facility: [facility] Address: [address] [address] Performed By: #### 2 4323-8 ####[facility] LABIA [id number] [place] [address] [place] Sodium [Moles/Vol] 130 mmol/L Low 136-144 [facility] Comment on above: Order Comment: Speci men Type: BLOOD SPECIMENOrdering Facility: [facility] Address: [address] [address] Performed By: #### 2 4323-8 ####[facility] LABCLIA [id number] [place] [address] [place] Urea nitrogen [Mass/Vol] 62 mg/dL High 9-24 [facility] Comment on above: Order Comment: Speci kaci Type: BLOOD SPECIMENOrdering Facility: [facility] Address: [address] [address] Performed By: #### 2 4323-8 ####[facility] LABCLIA [id number] [place] [address] [place] IR ARM VENO SYMPTOMATIC BILo n 03-27-2023 IR ARM VENO SYMPTOMATIC NACHO Normal [facility] PT EDon 03-27-2023 PT ED Normal [facility] PT panel Coag (PPP)on 2022 INR Coag (PPP) [Relative time] 2.9 {INR} High 0.9-1.3 [facility] Comment on above: Order Comment: Speccate clemons Type: BLOOD SPECIMENOrdering Facility: [facility] Address: [address] [address] Result Comment: Baylee min K Antagonist (VKA) Therapeutic Range: INR 2 to 3 (Target INR of 2.5)Note: For patients treated with VKA drugs, such as warfarin, the [place] [employer] 2012 Guideline recommends [...] al. Chest 2012, 141:7S-47SNishimura RA, et al. [facility] 2017, 70: 252-289 Performed By: #### 3 4528-0 ####[facility] LABCLIA [id number] [place] [address] [place] PT Coag (PPP) [Time] 28.2 s High 9.7-13.0 [facility] Comment on above: Order Comment: Speci men Type: BLOOD SPECIMENOrdering Facility: [facility] Address: [address] [place] [address] Performed By: #### 3 4528-0 ####[facility] [id number] [place] [address] [place] INR Coag (PPP) [Relative time] 3.0 {INR} High 0.9-1.3 [facility] Comment on above: Order Comment: Speci men Type: BLOOD SPECIMENOrdering Facility: [facility] Address: [address] [place] [address] Result Comment: Baylee min K Antagonist (VKA) Therapeutic Range: INR 2 to 3 (Target INR of 2.5)Note: For patients treated with VKA drugs, such as warfarin, the [place] [employer] 2012 Guideline recommends [...] al. Chest 2012, 141:7S-47SNishmati RA, et al. [facility] 2017, 70: 252-289 Performed By: #### 3 4528-0 ####[facility] [id number] [place] [address] [place] PT Coag (PPP) [Time] 29.7 s High 9.7-13.0 [facility] Comment on above: Order Comment: Speci men Type: BLOOD SPECIMENOrdering Facility: [facility] Address: [address] [place] [address] Performed By: #### 3 4528-0 ####[facility] LABCLIA [id number] [place] [address] [place] INR Coag (PPP) [Relative time] 3.2 {INR} High 0.9-1.3 [facility] Comment on above: Order Comment: Speci men Type: BLOOD SPECIMENOrdering Facility: [facility] Address: [address] [address] Result Comment: Baylee min K Antagonist (VKA) Therapeutic Range: INR 2 to 3 (Target INR of 2.5)Note: For patients treated with VKA drugs, such as warfarin, the [place] [employer] 2012 Guideline recommends [...] al. Chest 2012, 141:7S-47SNishimura RA, et al. [facility] 2017, 70: 252-289 Performed By: #### 3 4528-0 ####[facility] LABIA [id number] [place] [address] [place] PT Coag (PPP) [Time] 30.7 s High 9.7-13.0 [facility] Comment on above: Order Comment: Speci men Type: BLOOD SPECIMENOrdering Facility: [facility] Address: [address] [address] Performed By: #### 3 4528-0 ####[facility] LABIA [id number] [place] [address] [place] CBC panel Auto (Bld)on 03-26 Erythrocyte distribution width (RBC) [Ratio] 20.7 % High 11.5-15.0 [facility] Comment on above: Order Comment: Speci men Type: BLOOD SPECIMENOrdering Facility: [facility] Address: [address] [place] [address] Performed By: #### 5 8410-2 ####[facility] LABIA [id number] [address] STATES OF [facility] Hematocrit (Bld) [Volume fraction] 36.3 % Low 39.0-51.0 [facility] Comment on above: Order Comment: Speci men Type: BLOOD SPECIMENOrdering Facility: [facility] Address: [address] [place] [address] Performed By: #### 5 8410-2 ####[facility] LABIA [id number] [address] [place] Hemoglobin (Bld) [Mass/Vol] 11.3 g/dL Low 13.0-17.0 [facility] Comment on above: Order Comment: Speci men Type: BLOOD SPECIMENOrdering Facility: [facility] Address: [address] [place], [place] [address] Performed By: #### 5 8410-2 ####[facility] LABIA [id number] [address] [place] MCH (RBC) [Entitic mass] 24.9 pg Low 26.0-34.0 [facility] Comment on above: Order Comment: Speci men Type: BLOOD SPECIMENOrdering Facility: [facility] Address: [address] [place], [place] [address] Performed By: #### 5 8410-2 ####[facility] LABIA [id number] [address] [place] MCHC (RBC) [Mass/Vol] 31.1 g/dL Normal 30.5-36.0 [facility] Comment on above: Order Comment: Speci men Type: BLOOD SPECIMENOrdering Facility: [facility] Address: [address] Performed By: #### 5 8410-2 ####[facility] LABIA [id number] [address] MCV (RBC) [Entitic vol] 80.1 fL Normal 80.0-100.0 [facility] Comment on above: Order Comment: Speci men Type: BLOOD SPECIMENOrdering Facility: [facility] Address: [address] Performed By: #### 5 8410-2 ####[facility] LABIA [id number] [place] [address] [place] Nucleated RBC (Bld) [#/Vol] 10*3/uL Normal <0.01 [facility] Comment on above: Order Comment: Speci men Type: BLOOD SPECIMENOrdering Facility: [facility] Address: [address] Performed By: #### 5 8410-2 ####[facility] LABIA [id number] [place] [address] [place] Platelet mean volume (Bld) [Entitic vol] 9.7 fL Normal 9.0-12.7 [facility] Comment on above: Order Comment: Speci men Type: BLOOD SPECIMENOrdering Facility: [facility] Address: [address] [place] [address] Performed By: #### 5 8410-2 ####[facility] LABCLIA [id number] [place] [address] [place] Platelets (Bld) [#/Vol] 237 10*3/uL Normal 150-400 [facility] Comment on above: Order Comment: Speci men Type: BLOOD SPECIMENOrdering Facility: [facility] Address: [address] Performed By: #### 5 8410-2 ####[facility] LABCLIA [id number] [place] [address] [place] RBC (Bld) [#/Vol] 4.53 10*6/uL Normal 4.20-6.00 [facility] Comment on above: Order Comment: Speci men Type: BLOOD SPECIMENOrdering Facility: [facility] Address: [address] [place] [address] Performed By: #### 5 8410-2 ####[facility] LABIA [id number] [place] [address] [place] WBC (Bld) [#/Vol] 9.04 10*3/uL Normal 3.70-11.00 [facility] Comment on above: Order Comment: Speci men Type: BLOOD SPECIMENOrdering Facility: [facility] Address: [address] [place] [address] Performed By: #### 5 8410-2 ####[facility] [id number] [place] [address] [place] CONSULT PROGon 03-26-2023 CONSULT PROG Normal [facility] Comprehensive metabolic 2000 panelon 03-26-2023 Albumin [Mass/Vol] 3.5 g/dL Low 3.9-4.9 [facility] Comment on above: Order Comment: Speci men Type: BLOOD SPECIMENOrdering Facility: [facility] Address: [address] [place], [place] [address] Performed By: #### 2 4323-8 ####[facility] LABIA [id number] [place] [address] [place] ALP [Catalytic activity/Vol] 146 U/L High 38-113 [facility] Comment on above: Order Comment: Speci men Type: BLOOD SPECIMENOrdering Facility: [facility] Address: [address] [place] [address] Performed By: #### 2 4323-8 ####[facility] LABIA [id number] [place] [address] [place] ALT [Catalytic activity/Vol] 36 U/L Normal 10-54 [facility] Comment on above: Order Comment: Speci men Type: BLOOD SPECIMENOrdering Facility: [facility] Address: [address] [place] [address] Performed By: #### 2 4323-8 ####[facility] LABCLIA [id number] [place] [address] [place] Anion gap [Moles/Vol] 15 mmol/L Normal 9-18 [facility] Comment on above: Order Comment: Speci men Type: BLOOD SPECIMENOrdering Facility: [facility] Address: [address] [place] [address] Performed By: #### 2 4323-8 ####[facility] LABCLIA [id number] [place] [address] [place] AST [Catalytic activity/Vol] 36 U/L Normal 14-40 [facility] Comment on above: Order Comment: Speci men Type: BLOOD SPECIMENOrdering Facility: [facility] Address: [address] [place] [address] Performed By: #### 2 4323-8 ####[facility] LABCLIA [id number] [place] [address] [place] Bilirubin [Mass/Vol] 2.7 mg/dL High 0.2-1.3 [facility] Comment on above: Order Comment: Speci men Type: BLOOD SPECIMENOrdering Facility: [facility] Address: [address] [place] [address] Performed By: #### 2 4323-8 ####[facility] LABCLIA [id number] [place] [address] [place] Calcium [Mass/Vol] 9.2 mg/dL Normal 8.5-10.2 [facility] Comment on above: Order Comment: Speci men Type: BLOOD SPECIMENOrdering Facility: [facility] Address: [address] [address] Performed By: #### 2 4323-8 ####[facility] LABCLIA [id number] [place] [address] [place] Chloride [Moles/Vol] 94 mmol/L Low 97-105 [facility] Comment on above: Order Comment: Speci men Type: BLOOD SPECIMENOrdering Facility: [facility] Address: [address] [place] [address] Performed By: #### 2 4323-8 ####[facility] LABCLIA [id number] [place] [address] [place] CO2 [Moles/Vol] 22 mmol/L Normal 22-30 [facility] Comment on above: Order Comment: Speci men Type: BLOOD SPECIMENOrdering Facility: [facility] Address: [address] [place] [address] Performed By: #### 2 4323-8 ####[facility] LABCLIA [id number] [place] [address] [place] Creatinine [Mass/Vol] 2.26 mg/dL High 0.73-1.22 [facility] Comment on above: Order Comment: Speci men Type: BLOOD SPECIMENOrdering Facility: [facility] Address: [address] [place], [place] [address] Performed By: #### 2 4323-8 ####[facility] LABCLIA [id number] [address] [place] Creatinine and Glomerular filtration rate.predicted panel (S/P/Bld) 31 mL/min/1.73m??? Low >=60 [facility] Comment on above: Order Comment: Speci men Type: BLOOD SPECIMENOrdering Facility: [facility] Address: [address] [place] [address] Result Comment: Syl mated Glomerular Filtration Rate [...] actual GFR. Performed By: #### 2 4323-8 ####[facility] LABCLIA [id number] [place] [address] [place] Glucose [Mass/Vol] 154 mg/dL High 74-99 [facility] Comment on above: Order Comment: Joseline clemons Type: BLOOD SPECIMENOrdering Facility: [facility] Address: [address] [address] Result Comment: The [place] [employer] (ADA) provides guidance for cutoff [...] Standards of Medical Care in Diabetes 2016, [place] [employer]. Diabetes Care. 2016.39(Suppl 1). Performed By: #### 2 4323-8 ####[facility] LABIA [id number] [place] [address] [place] Potassium [Moles/Vol] 4.4 mmol/L Normal 3.7-5.1 [facility] Comment on above: Order Comment: Joseline clemons Type: BLOOD SPECIMENOrdering Facility: [facility] Address: [address] [id number] Performed By: #### 2 4323-8 ####[facility] LABCLIA [id number] [place] [address] [place] Protein [Mass/Vol] 5.9 g/dL Low 6.3-8.0 [facility] Comment on above: Order Comment: Speci men Type: BLOOD SPECIMENOrdering Facility: [facility] Address: [address] [place] [address] Performed By: #### 2 4323-8 ####[facility] LABCLIA [id number] [place] [address] [place] Sodium [Moles/Vol] 131 mmol/L Low 136-144 [facility] Comment on above: Order Comment: Speci men Type: BLOOD SPECIMENOrdering Facility: [facility] Address: [address] [place] [address] Performed By: #### 2 4323-8 ####[facility] LABCLIA [id number] [address] [place] Urea nitrogen [Mass/Vol] 61 mg/dL High 9-24 [facility] Comment on above: Order Comment: Speci men Type: BLOOD SPECIMENOrdering Facility: [facility] Address: [address] [place] [address] Performed By: #### 2 4323-8 ####[facility] LABIA [id number] [address] [place] PT panel Coag (PPP)on 2022 INR Coag (PPP) [Relative time] 3.0 {INR} High 0.9-1.3 [facility] Comment on above: Order Comment: Speci men Type: BLOOD SPECIMENOrdering Facility: [facility] Address: [address] [place] [address] Result Comment: Baylee min K Antagonist (VKA) Therapeutic Range: INR 2 to 3 (Target INR of 2.5)Note: For patients treated with VKA drugs, such as warfarin, the [place] [employer] 2012 Guideline recommends [...] al. Chest 2012, 141:7S-47SNishimura RA, et al. [facility] 2017, 70: 252-289 Performed By: #### 3 4528-0 ####[facility] LABCLIA [id number] [place] [address] [place] PT Coag (PPP) [Time] 29.4 s High 9.7-13.0 [facility] Comment on above: Order Comment: Speci men Type: BLOOD SPECIMENOrdering Facility: [facility] Address: [address] [place] [address] Performed By: #### 3 4528-0 ####[facility] LABIA [id number] [place] [address] [place] CBC panel Auto (Bld)on 03-25 Erythrocyte distribution width (RBC) [Ratio] 20.8 % High 11.5-15.0 [facility] Comment on above: Order Comment: Joseline clemons Type: BLOOD SPECIMENOrdering Facility: [facility] Address: [address] [address] Performed By: #### 5 8410-2 ####[facility] LABIA [id number] [place] [address] [place] Hematocrit (Bld) [Volume fraction] 38.1 % Low 39.0-51.0 [facility] Comment on above: Order Comment: Joseline clemons Type: BLOOD SPECIMENOrdering Facility: [facility] Address: [address] [address] Performed By: #### 5 8410-2 ####[facility] LABCLIA [id number] [address] [place] [facility] Hemoglobin (Bld) [Mass/Vol] 12.0 g/dL Low 13.0-17.0 [facility] Comment on above: Order Comment: Speci men Type: BLOOD SPECIMENOrdering Facility: [facility] Address: [address] [place] [address] Performed By: #### 5 8410-2 ####[facility] LABIA [id number] [address] STATES [facility] MCH (RBC) [Entitic mass] 25.6 pg Low 26.0-34.0 [facility] Comment on above: Order Comment: Speci men Type: BLOOD SPECIMENOrdering Facility: [facility] Address: [address] [place] [address] Performed By: #### 5 8410-2 ####[facility] LABIA [id number] [address] MCHC (RBC) [Mass/Vol] 31.5 g/dL Normal 30.5-36.0 [facility] Comment on above: Order Comment: Speci men Type: BLOOD SPECIMENOrdering Facility: [facility] Address: [address] [place] [address] Performed By: #### 5 8410-2 ####[facility] LABIA [id number] [address] [place] [facility] MCV (RBC) [Entitic vol] 81.2 fL Normal 80.0-100.0 [facility] Comment on above: Order Comment: Speci men Type: BLOOD SPECIMENOrdering Facility: [facility] Address: [address] [place], [place] [address] Performed By: #### 5 8410-2 ####[facility] LABIA [id number] [address] [place] Nucleated RBC (Bld) [#/Vol] 0.02 10*3/uL High <0.01 [facility] Comment on above: Order Comment: Speci men Type: BLOOD SPECIMENOrdering Facility: [facility] Address: [address] [place], [place] [address] Performed By: #### 5 8410-2 ####[facility] LABCLIA [id number] [place] [address] [place] Platelet mean volume (Bld) [Entitic vol] 9.5 fL Normal 9.0-12.7 [facility] Comment on above: Order Comment: Speci men Type: BLOOD SPECIMENOrdering Facility: [facility] Address: [address] [place], [place] [address] Performed By: #### 5 8410-2 ####[facility] LABCLIA [id number] [place] [address] [place] Platelets (Bld) [#/Vol] 244 10*3/uL Normal 150-400 [facility] Comment on above: Order Comment: Speci men Type: BLOOD SPECIMENOrdering Facility: [facility] Address: [address] [place], [place] [address] Performed By: #### 5 8410-2 ####[facility] LABCLIA [id number] [place] [address] [place] RBC (Bld) [#/Vol] 4.69 10*6/uL Normal 4.20-6.00 [facility] Comment on above: Order Comment: Speci men Type: BLOOD SPECIMENOrdering Facility: [facility] Address: [address] [place], [place] [address] Performed By: #### 5 8410-2 ####[facility] LABCLIA [id number] [place] [address] [place] WBC (Bld) [#/Vol] 10.45 10*3/uL Normal 3.70-11.00 [facility] Comment on above: Order Comment: Speci men Type: BLOOD SPECIMENOrdering Facility: [facility] Address: [address] [place] [id number] Performed By: #### 5 8410-2 ####[facility] [id number] [place] [address] [place] CONSULT PROGon 03-25-2023 CONSULT PROG Normal [facility] PT EDon 03-25-2023 PT ED Normal [facility] PT panel Coag (PPP)on 2022 INR Coag (PPP) [Relative time] 2.9 {INR} High 0.9-1.3 [facility] Comment on above: Order Comment: Joseline clemons Type: BLOOD SPECIMENOrdering Facility: [facility] Address: [address] [place] [address] Result Comment: Baylee min K Antagonist (VKA) Therapeutic Range: INR 2 to 3 (Target INR of 2.5)Note: For patients treated with VKA drugs, such as warfarin, the [place] [employer] 2012 Guideline recommends [...] al. Chest 2012, 141:7S-47SNishmati RA, et al. [facility] 2017, 70: 252-289 Performed By: #### 3 4528-0 ####[facility] LABIA [id number] [place] [address] [place] PT Coag (PPP) [Time] 28.7 s High 9.7-13.0 [facility] Comment on above: Order Comment: Speci men Type: BLOOD SPECIMENOrdering Facility: [facility] Address: [address] Performed By: #### 3 4528-0 ####[facility] [id number] [place] [address] [place] THERAPY NTon 03-25-2023 THERAPY NT Normal [facility] CBC panel Auto (Bld)on 03-24 Erythrocyte distribution width (RBC) [Ratio] 20.3 % High 11.5-15.0 [facility] Comment on above: Order Comment: Speci men Type: BLOOD SPECIMENOrdering Facility: [facility] Address: [address] [address] Performed By: #### 5 8410-2 ####[facility] [id number] [address] [place] Hematocrit (Bld) [Volume fraction] 36.6 % Low 39.0-51.0 [facility] Comment on above: Order Comment: Speci men Type: BLOOD SPECIMENOrdering Facility: [facility] Address: [address] [place] [address] Performed By: #### 5 8410-2 ####[facility] [id number] [address] [place] Hemoglobin (Bld) [Mass/Vol] 11.3 g/dL Low 13.0-17.0 [facility] Comment on above: Order Comment: Speci men Type: BLOOD SPECIMENOrdering Facility: [facility] Address: [address] Performed By: #### 5 8410-2 ####[facility] [id number] [place] [address] [place] MCH (RBC) [Entitic mass] 24.8 pg Low 26.0-34.0 [facility] Comment on above: Order Comment: Speci men Type: BLOOD SPECIMENOrdering Facility: [facility] Address: [address] Performed By: #### 5 8410-2 ####[facility] LABCLIA [id number] [address] [place] MCHC (RBC) [Mass/Vol] 30.9 g/dL Normal 30.5-36.0 [facility] Comment on above: Order Comment: Speci men Type: BLOOD SPECIMENOrdering Facility: [facility] Address: [address] Performed By: #### 5 8410-2 ####[facility] LABIA [id number] [place] [address] [place] MCV (RBC) [Entitic vol] 80.4 fL Normal 80.0-100.0 [facility] Comment on above: Order Comment: Speci men Type: BLOOD SPECIMENOrdering Facility: [facility] Address: [address] [place], [place] [address] Performed By: #### 5 8410-2 ####[facility] LABIA [id number] [place] [address] [place] Nucleated RBC (Bld) [#/Vol] 0.02 10*3/uL High <0.01 [facility] Comment on above: Order Comment: Speci men Type: BLOOD SPECIMENOrdering Facility: [facility] Address: [address] [place], [place] [address] Performed By: #### 5 8410-2 ####[facility] LABIA [id number] [place] [address] [place] Platelet mean volume (Bld) [Entitic vol] 10.1 fL Normal 9.0-12.7 [facility] Comment on above: Order Comment: Speci men Type: BLOOD SPECIMENOrdering Facility: [facility] Address: [address] [place], [place] [address] Performed By: #### 5 8410-2 ####[facility] LABIA [id number] [place] [address] [place] Platelets (Bld) [#/Vol] 227 10*3/uL Normal 150-400 [facility] Comment on above: Order Comment: Speci men Type: BLOOD SPECIMENOrdering Facility: [facility] Address: [address] [place] [address] Performed By: #### 5 8410-2 ####[facility] LABIA [id number] [place] [address] [place] RBC (Bld) [#/Vol] 4.55 10*6/uL Normal 4.20-6.00 [facility] Comment on above: Order Comment: Speci men Type: BLOOD SPECIMENOrdering Facility: [facility] Address: [address] [place] [address] Performed By: #### 5 8410-2 ####[facility] [id number] [place] [address] [place] WBC (Bld) [#/Vol] 9.91 10*3/uL Normal 3.70-11.00 [facility] Comment on above: Order Comment: Speci men Type: BLOOD SPECIMENOrdering Facility: [facility] Address: [address] [place] [address] Performed By: #### 5 8410-2 ####[facility] [id number] [place] [address] [place] CONSULTon 03-24-2023 CONSULT Normal [facility] CONSULT PROGon 03-24-2023 CONSULT PROG Normal [facility] ICD CLINIC CHECKon 3 Federico RV Pacing Amplitude (volts) 2.0 V [facility] Federico RV Pacing Polarity BI [facility] Federico RV Pacing Pulse Width (ms) 0.4 ms [facility] Federico RV Sensing Amplitude (mvolts) 0.6 mV [facility] Federico RV Sensing Polarity BI [facility] Detection Configuration (Vent) 1 - Zone [facility] FastVT_Detection Interval 333 ms [facility] ICD FastVT DetectionStatus ENABLED [facility] ICD-ATP Episodes (Vent) 0 [facility] ICD-Device Mfg BSX [facility] ICD-Percent Pacing (Vent) 0 % [facility] ICD-Rhythm Normal Sinus Rhythm [facility] ICD-Shocks Aborted (Vent) 0 [facility] [id number] 0 [facility] ICD-SHOCKSABORTED 0 [facility] ICD-SHOCKSDELIVEREDVE NTRICULAR 0 [facility] ICD-Ventricular Fibrillation 0 [facility] Lead Impedance (RV) 505 ohm [facility] Lead Impedance High Voltage 93 ohm [facility] Lead1 Mfg BSX [facility] Location RV [facility] Lower Rate (bpm) 40 {beats}/min [facility] MDT_PROG_TACHY_ZONE_D ETECTIONS_STATUS ENABLED [facility] Model D150 DYNAGEN [facility] Model 0292 [employer]otak Relianc e 4-Site SG [facility] Pacemaker Dependent? NO [facility] Pacing Mode VVI [facility] Serial Number [id number] [facility] Serial Number [id number] [facility] Test Charge Time 11.0 s [facility] Therapy Status (Vent) Enabled [facility] Thresh RV Capture Amplitude (VOLTS) 0.6 V [facility] Thresh RV Capture Duration (MS) 0.4 ms [facility] VF Zone Detection Interval 273 ms [facility] VF Zone Therapy Configuration 1 ATP(s) + 8 Shock(s) [facility] NUTRITIONon 03-24-2023 NUTRITION Normal [facility] No Panel Informationon 03-24 BLANK _ [facility] ICD-Fast Ventricular Tachycardia 0 [facility] Implant Date 10/18/2017 [facility] PT panel Coag (PPP)on 2022 INR Coag (PPP) [Relative time] 2.5 {INR} High 0.9-1.3 [facility] Comment on above: Order Comment: Speci men Type: BLOOD SPECIMENOrdering Facility: [facility] Address: [facility] [place] [address] Result Comment: Baylee min K Antagonist (VKA) Therapeutic Range: INR 2 to 3 (Target INR of 2.5)Note: For patients treated with VKA drugs, such as warfarin, the [place] [employer] 2012 Guideline recommends [...] al. Chest 2012, 141:7S-47SNishmati RA, et al. [facility] 2017, 70: 252-289 Performed By: #### 3 4528-0 ####[facility] [id number] [place] [address] [place] PT Coag (PPP) [Time] 24.8 s High 9.7-13.0 [facility] Comment on above: Order Comment: Speci men Type: BLOOD SPECIMENOrdering Facility: [facility] Address: [address] [address] Performed By: #### 3 4528-0 ####[facility] [id number] [place] [address] [place] PVR ANK/VELASCO/TOE NCAHO [facility] on 03-24-2023 PVR ANK/VELASCO/TOE N[facility]O [facility] Normal [facility] Prot Ur-mCncon 03-24-2023 Protein (U) [Mass/Vol] 8 mg/dL Normal 0-20 [facility] Comment on above: Order Comment: Speci men Type: URINE SPECIMENOrdering Facility: [facility] Address: [address] [address] Performed By: #### 2 888-6 ####[facility] [id number] [place] [address] [place] Basic metabolic 2000 panelon 03-23-2023 Anion gap [Moles/Vol] 12 mmol/L Normal 9-18 [facility] Comment on above: Order Comment: Speci men Type: BLOOD SPECIMENOrdering Facility: [facility] Address: [address] [address] Performed By: #### 2 4321-2, 2885-2 ####[facility] LABCLIA [id number] [place] [address] [place] Calcium [Mass/Vol] 9.6 mg/dL Normal 8.5-10.2 [facility] Comment on above: Order Comment: Speci men Type: BLOOD SPECIMENOrdering Facility: [facility] Address: [address] [address] Performed By: #### 2 4321-2, 2885-2 ####[facility]CL[facility] [id number] [place] [address] [place] Chloride [Moles/Vol] 96 mmol/L Low 97-105 [facility] Comment on above: Order Comment: Speci men Type: BLOOD SPECIMENOrdering Facility: [facility] Address: [address] [place] [address] Performed By: #### 2 4321-2, 288-2 ####[facility]CLIA [id number] [place] [address] [place] CO2 [Moles/Vol] 26 mmol/L Normal 22-30 [facility] Comment on above: Order Comment: Speci men Type: BLOOD SPECIMENOrdering Facility: [facility] Address: [address] Performed By: #### 2 4321-2, 2885-2 ####[facility]CLIA [id number] [place] [address] [place] Creatinine [Mass/Vol] 2.07 mg/dL High 0.73-1.22 [facility] Comment on above: Order Comment: Speci men Type: BLOOD SPECIMENOrdering Facility: [facility] Address: [address] [address] Performed By: #### 2 4321-2, 2885-2 ####[facility] [id number] [address] [place] Creatinine and Glomerular filtration rate.predicted panel (S/P/Bld) 35 mL/min/1.73m??? Low >=60 [facility] Comment on above: Order Comment: Joseline clemons Type: BLOOD SPECIMENOrdering Facility: [facility] Address: [address] [address] Result Comment: Syl mated Glomerular Filtration Rate [...] actual GFR. Performed By: #### 2 4321-2, 2885-2 ####[facility] [id number] [place] [address] [place] Glucose [Mass/Vol] 123 mg/dL High 74-99 [facility] Comment on above: Order Comment: Joseline clemons Type: BLOOD SPECIMENOrdering Facility: [facility] Address: [address] [place] [address] Result Comment: The [place] [employer] (ADA) provides guidance for cutoff [...] Standards of Medical Care in Diabetes 2016, [place] [employer]. Diabetes Care. 2016.39(Suppl 1). Performed By: #### 2 4321-2, 2885-2 ####[facility] LABCL[facility] [id number] [place] [address] [place] Potassium [Moles/Vol] 5.0 mmol/L Normal 3.7-5.1 [facility] Comment on above: Order Comment: Speci men Type: BLOOD SPECIMENOrdering Facility: [facility] Address: [address] [place] [address] Performed By: #### 2 4321-2, 2885-2 ####[facility]CL[facility] [id number] [place] [address] [place] Sodium [Moles/Vol] 134 mmol/L Low 136-144 [facility] Comment on above: Order Comment: Speci men Type: BLOOD SPECIMENOrdering Facility: [facility] Address: [address] [place] [address] Performed By: #### 2 432-2, 288-2 ####[facility]CL[facility] [id number] [place] [address] [place] Urea nitrogen [Mass/Vol] 57 mg/dL High 9-24 [facility] Comment on above: Order Comment: Speci men Type: BLOOD SPECIMENOrdering Facility: [facility] Address: [address] [place] [address] Performed By: #### 2 4321-2, 2885-2 ####[facility] [id number] [place] [address] [place] CBC panel Auto (Bld)on 03-23 Erythrocyte distribution width (RBC) [Ratio] 20.3 % High 11.5-15.0 [facility] Comment on above: Order Comment: Speci men Type: BLOOD SPECIMENOrdering Facility: [facility] Address: [address] [place] [address] Performed By: #### 5 8410-2 ####[facility]CL[facility] [id number] [place] [address] [place] Hematocrit (Bld) [Volume fraction] 36.1 % Low 39.0-51.0 [facility] Comment on above: Order Comment: Speci men Type: BLOOD SPECIMENOrdering Facility: [facility] Address: [address] [place] [address] Performed By: #### 5 8410-2 ####[facility] [id number] [place] [address] [place] Hemoglobin (Bld) [Mass/Vol] 11.1 g/dL Low 13.0-17.0 [facility] Comment on above: Order Comment: Speci men Type: BLOOD SPECIMENOrdering Facility: [facility] Address: [address] [place] [address] Performed By: #### 5 8410-2 ####[facility] [id number] [address] STATES OF [facility] MCH (RBC) [Entitic mass] 24.8 pg Low 26.0-34.0 [facility] Comment on above: Order Comment: Speci men Type: BLOOD SPECIMENOrdering Facility: [facility] Address: [address] [place] [address] Performed By: #### 5 8410-2 ####[facility] [id number] [place] [address] [place] MCHC (RBC) [Mass/Vol] 30.7 g/dL Normal 30.5-36.0 [facility] Comment on above: Order Comment: Speci men Type: BLOOD SPECIMENOrdering Facility: [facility] Address: [address] [place] [address] Performed By: #### 5 8410-2 ####[facility] [id number] [address] [place] MCV (RBC) [Entitic vol] 80.6 fL Normal 80.0-100.0 [facility] Comment on above: Order Comment: Speci men Type: BLOOD SPECIMENOrdering Facility: [facility] Address: [address] [place], [place] [address] Performed By: #### 5 8410-2 ####[facility] [id number] [place] [address] [place] Nucleated RBC (Bld) [#/Vol] 10*3/uL Normal <0.01 [facility] Comment on above: Order Comment: Speci men Type: BLOOD SPECIMENOrdering Facility: [facility] Address: [address] [place], [place] [address] Performed By: #### 5 8410-2 ####[facility] [id number] [place] [address] [place] Platelet mean volume (Bld) [Entitic vol] 9.8 fL Normal 9.0-12.7 [facility] Comment on above: Order Comment: Speci men Type: BLOOD SPECIMENOrdering Facility: [facility] Address: [address] [place], [place] [address] Performed By: #### 5 8410-2 ####[facility] [id number] [place] [address] [place] Platelets (Bld) [#/Vol] 249 10*3/uL Normal 150-400 [facility] Comment on above: Order Comment: Speci men Type: BLOOD SPECIMENOrdering Facility: [facility] Address: [address] [place] [address] Performed By: #### 5 8410-2 ####[facility] [id number] [place] [address] [place] RBC (Bld) [#/Vol] 4.48 10*6/uL Normal 4.20-6.00 [facility] Comment on above: Order Comment: Speci men Type: BLOOD SPECIMENOrdering Facility: [facility] Address: [address] [place], [place] [address] Performed By: #### 5 8410-2 ####[facility] [id number] [place] [address] [place] WBC (Bld) [#/Vol] 8.92 10*3/uL Normal 3.70-11.00 [facility] Comment on above: Order Comment: Speci men Type: BLOOD SPECIMENOrdering Facility: [facility] Address: [address] [place], [place] [address] Performed By: #### 5 8410-2 ####[facility] [id number] [place] [address] [place] CONSULTon 03-23-2023 CONSULT Normal [facility] CONSULT Normal [facility] CRP SerPl-mCncon 03-23-2023 CRP [Mass/Vol] 3.0 mg/dL High <0.9 [facility] Comment on above: Order Comment: Speci men Type: BLOOD SPECIMENOrdering Facility: [facility] Address: [address] [place] [address] Performed By: #### 1 988-5 ####[facility] [id number] [place] [address] [place] NM PET/CT CARD PERF REST/STR ESSon 03-23-2023 NM PET/CT CARD PERF REST/STRESS Normal [facility] NM PET/CT CARDIAC VIABILITYo n 03-23-2023 NM PET/CT CARDIAC VIABILITY Normal [facility] NURSING PROGon 03-23-2023 NURSING PROG Normal [facility] PT panel Coag (PPP)on 2022 INR Coag (PPP) [Relative time] 2.1 {INR} High 0.9-1.3 [facility] Comment on above: Order Comment: Speci men Type: BLOOD SPECIMENOrdering Facility: [facility] Address: [address] [place], [place] [address] Result Comment: Baylee min K Antagonist (VKA) Therapeutic Range: INR 2 to 3 (Target INR of 2.5)Note: For patients treated with VKA drugs, such as warfarin, the [place] [employer] 2012 Guideline recommends [...] al. Chest 2012, 141:7S-47SNishimura RA, et al. [facility] 2017, 70: 252-289 Performed By: #### 3 4528-0 ####[facility] [id number] [place] [address] [place] PT Coag (PPP) [Time] 20.8 s High 9.7-13.0 [facility] Comment on above: Order Comment: Speci men Type: BLOOD SPECIMENOrdering Facility: [facility] Address: [address] [place] [address] Performed By: #### 3 4528-0 ####[facility] [id number] [place] [address] [place] Prot SerPl-mCncon 03-23-2023 Protein [Mass/Vol] 6.3 g/dL Normal 6.3-8.0 [facility] Comment on above: Order Comment: Speci men Type: BLOOD SPECIMENOrdering Facility: [facility] Address: [address] [place] [address] Performed By: #### 2 4321-2, 2885-2 ####[facility] [id number] [place] [address] [place] XR FOOT 3V AP/LAT/OBL RTon 0 8-17-2023 XR FOOT 3V AP/LAT/OBL RT Normal [facility] Bacteria Wnd Culton 03-22-20 23 Bacteria identified Cx Nom (Wound) Abnormal [facility] Comment on above: Performed By: #### 6 462-6 ####[facility]CL[facility] [id number] [place] [address] [place] Basic metabolic 2000 panelon 03-22-2023 Anion gap [Moles/Vol] 13 mmol/L Normal 9-18 [facility] Comment on above: Order Comment: Speci men Type: BLOOD SPECIMENOrdering Facility: [facility] Address: [address] [place] [address] Performed By: #### 2 4321-2 ####[facility]CL[facility] [id number] [place] [address] [place] Calcium [Mass/Vol] 9.6 mg/dL Normal 8.5-10.2 [facility] Comment on above: Order Comment: Speci men Type: BLOOD SPECIMENOrdering Facility: [facility] Address: [address] [place] [address] Performed By: #### 2 4321-2 ####[facility]CL[facility] [id number] [place] [address] [place] Chloride [Moles/Vol] 94 mmol/L Low 97-105 [facility] Comment on above: Order Comment: Speci men Type: BLOOD SPECIMENOrdering Facility: [facility] Address: [address] Performed By: #### 2 4321-2 ####[facility]CL[facility] [id number] [place] [address] [place] CO2 [Moles/Vol] 25 mmol/L Normal 22-30 [facility] Comment on above: Order Comment: Speci men Type: BLOOD SPECIMENOrdering Facility: [facility] Address: [address] [place] [address] Performed By: #### 2 4321-2 ####[facility] [id number] [place] [address] [place] Creatinine [Mass/Vol] 2.20 mg/dL High 0.73-1.22 [facility] Comment on above: Order Comment: Speci men Type: BLOOD SPECIMENOrdering Facility: [facility] Address: [address] [address] Performed By: #### 2 4321-2 ####[facility] [id number] [place] [address] [place] ESTIMATED GLOMERULAR FILTRATION RATE 32 mL/min/1.73m??? Low >=60 [facility] Comment on above: Order Comment: Speci men Type: BLOOD SPECIMENOrdering Facility: [facility] Address: [address] [address] Result Comment: Syl mated Glomerular Filtration Rate [...] actual GFR. Performed By: #### 2 4321-2 ####[facility] [id number] [place] [address] [place] Glucose [Mass/Vol] 120 mg/dL High 74-99 [facility] Comment on above: Order Comment: Speci men Type: BLOOD SPECIMENOrdering Facility: [facility] Address: [address] [address] Result Comment: The [place] [employer] (ADA) provides guidance for cutoff [...] Standards of Medical Care in Diabetes 2016, [place] [employer]. Diabetes Care. 2016.39(Suppl 1). Performed By: #### 2 4321-2 ####[facility]CL[facility] [id number] [place] [address] [place] Potassium [Moles/Vol] 4.4 mmol/L Normal 3.7-5.1 [facility] Comment on above: Order Comment: Joseline clemons Type: BLOOD SPECIMENOrdering Facility: [facility] Address: [address] [place] [address] Performed By: #### 2 4321-2 ####[facility] [id number] [address] [place] Sodium [Moles/Vol] 132 mmol/L Low 136-144 [facility] Comment on above: Order Comment: Joseline clemons Type: BLOOD SPECIMENOrdering Facility: [facility] Address: [address] [address] Performed By: #### 2 4321-2 ####[facility] [id number] [place] [address] [place] Urea nitrogen [Mass/Vol] 54 mg/dL High 9-24 [facility] Comment on above: Order Comment: Reneei kaci Type: BLOOD SPECIMENOrdering Facility: [facility] Address: [address] [address] Performed By: #### 2 4321-2 ####[facility] [id number] [place] [address] [place] CASE MANAGEMon 03-22-2023 CASE MANAGEM Normal [facility] CBC panel Auto (Bld)on 03-22 Erythrocyte distribution width (RBC) [Ratio] 20.4 % High 11.5-15.0 [facility] Comment on above: Order Comment: Speci men Type: BLOOD SPECIMENOrdering Facility: [facility] Address: [address] [place] [address] Performed By: #### 5 8410-2 ####[facility] LABCL[facility] [id number] [address] STATES OF [facility] Hematocrit (Bld) [Volume fraction] 36.5 % Low 39.0-51.0 [facility] Comment on above: Order Comment: Speci men Type: BLOOD SPECIMENOrdering Facility: [facility] Address: [address] [place] [address] Performed By: #### 5 8410-2 ####[facility] [id number] [address] [place] Hemoglobin (Bld) [Mass/Vol] 11.2 g/dL Low 13.0-17.0 [facility] Comment on above: Order Comment: Speci men Type: BLOOD SPECIMENOrdering Facility: [facility] Address: [address] [place] [address] Performed By: #### 5 8410-2 ####[facility] [id number] [address] [place] MCH (RBC) [Entitic mass] 24.8 pg Low 26.0-34.0 [facility] Comment on above: Order Comment: Speci men Type: BLOOD SPECIMENOrdering Facility: [facility] Address: [address] [place], [place] [address] Performed By: #### 5 8410-2 ####[facility] [id number] [address] [place] MCHC (RBC) [Mass/Vol] 30.7 g/dL Normal 30.5-36.0 [facility] Comment on above: Order Comment: Speci men Type: BLOOD SPECIMENOrdering Facility: [facility] Address: [address] Performed By: #### 5 8410-2 ####[facility] [id number] [address] MCV (RBC) [Entitic vol] 80.9 fL Normal 80.0-100.0 [facility] Comment on above: Order Comment: Speci men Type: BLOOD SPECIMENOrdering Facility: [facility] Address: [address] Performed By: #### 5 8410-2 ####[facility] [id number] [place] [address] [place] Nucleated RBC (Bld) [#/Vol] 0.02 10*3/uL High <0.01 [facility] Comment on above: Order Comment: Speci men Type: BLOOD SPECIMENOrdering Facility: [facility] Address: [address] Performed By: #### 5 8410-2 ####[facility] [id number] [place] [address] [place] Platelet mean volume (Bld) [Entitic vol] 10.0 fL Normal 9.0-12.7 [facility] Comment on above: Order Comment: Speci men Type: BLOOD SPECIMENOrdering Facility: [facility] Address: [address] [place] [address] Performed By: #### 5 8410-2 ####[facility] [id number] [place] [address] [place] Platelets (Bld) [#/Vol] 244 10*3/uL Normal 150-400 [facility] Comment on above: Order Comment: Speci men Type: BLOOD SPECIMENOrdering Facility: [facility] Address: [address] Performed By: #### 5 8410-2 ####[facility] [id number] [place] [address] [place] RBC (Bld) [#/Vol] 4.51 10*6/uL Normal 4.20-6.00 [facility] Comment on above: Order Comment: Speci men Type: BLOOD SPECIMENOrdering Facility: [facility] Address: [address] [place] [address] Performed By: #### 5 8410-2 ####[facility] [id number] [place] [address] [place] WBC (Bld) [#/Vol] 8.57 10*3/uL Normal 3.70-11.00 [facility] Comment on above: Order Comment: Speci men Type: BLOOD SPECIMENOrdering Facility: [facility] Address: [address] [place] [address] Performed By: #### 5 8410-2 ####[facility] [id number] [place] [address] [place] ALBUMIN/CREAT RATIO RND URon 03-21-2023 Albumin DL <= 20 mg/L (U) [Mass/Vol] 32.9 mg/L Normal [facility] Comment on above: Order Comment: Speci men Type: URINE SPECIMENOrdering Facility: [facility] Address: [address] [place] [address] Performed By: #### U ACR, [id number] ####[facility] [id number] [place] [address] [place] Albumin/Creatinine (U) [Mass ratio] 110 mg/g High <30 [facility] Comment on above: Order Comment: Speci men Type: URINE SPECIMENOrdering Facility: [facility] Address: [address] [place] [address] Result Comment: Adul t Male and Female Nephrotic Criteria:<30 mg/g is considered normal to mildly oxlsixbca67-646 mg/g is considered moderately increased>300 mg/g is considered severely increasedKDIGO. (2013). KDIGO 2012 Clinical Practice Guideline for the Evaluation and Management of Chronic Kidney Disease. Official Journal of the International Society of Nephrology, 3(1), 1-150. Performed By: #### U ACR, [id number] ####[facility] [id number] [place] [address] [place] Creatinine (U) [Mass/Vol] 29.9 mg/dL Normal 20.0-300.0 [facility] Comment on above: Order Comment: Speci men Type: URINE SPECIMENOrdering Facility: [facility] Address: [address] [address] Performed By: #### U ACR, [id number] ####[facility] [id number] [place] [address] [place] Bacteria Bld Culton 03-21-20 23 Bacteria identified Cx Nom (Bld) CULTURE, BLOOD: No growth 5 days Normal [facility] Comment on above: Performed By: #### 6 00-7 ####[facility] [id number] [place] [address] [place] Basic metabolic 2000 panelon 03-21-2023 Anion gap [Moles/Vol] 15 mmol/L Normal 9-18 [facility] Comment on above: Order Comment: Speci men Type: BLOOD SPECIMENOrdering Facility: [facility] Address: [address] [address] Performed By: #### 2 4321-2, 3016-3, [id number], 2532-0 ####[facility] [id number] [place] [address] [place] Calcium [Mass/Vol] 9.5 mg/dL Normal 8.5-10.2 [facility] Comment on above: Order Comment: Speci men Type: BLOOD SPECIMENOrdering Facility: [facility] Address: [address] [address] Performed By: #### 2 4321-2, 3016-3, [id number], 2532-0 ####[facility] [id number] [place] [address] [place] Chloride [Moles/Vol] 95 mmol/L Low 97-105 [facility] Comment on above: Order Comment: Speci men Type: BLOOD SPECIMENOrdering Facility: [facility] Address: [address] [place] [address] Performed By: #### 2 4321-2, 3016-3, [id number], 2532-0 ####[facility] [id number] [place] [address] [place] CO2 [Moles/Vol] 25 mmol/L Normal 22-30 [facility] Comment on above: Order Comment: Speci men Type: BLOOD SPECIMENOrdering Facility: [facility] Address: [address] [place] [address] Performed By: #### 2 4321-2, 3016-3, [id number], 2532-0 ####[facility] LABCLIA [id number] [place] [address] [place] Creatinine [Mass/Vol] 2.13 mg/dL High 0.73-1.22 [facility] Comment on above: Order Comment: Speci men Type: BLOOD SPECIMENOrdering Facility: [facility] Address: [address] [place], [place] [address] Performed By: #### 2 4321-2, 3016-3, [id number], 2532-0 ####[facility] LABCLIA [id number] [place] [address] [place] ESTIMATED GLOMERULAR FILTRATION RATE 34 mL/min/1.73m??? Low >=60 [facility] Comment on above: Order Comment: Speci men Type: BLOOD SPECIMENOrdering Facility: [facility] Address: [address] [place] [address] Result Comment: Syl mated Glomerular Filtration Rate [...] GFR. Performed By: #### 2 4321-2, 3016-3, [id number], 2532-0 ####[facility] LABCLIA [id number] [address] [address] [place] Glucose [Mass/Vol] 49 mg/dL Low 74-99 [facility] Comment on above: Order Comment: Joseline clemons Type: BLOOD SPECIMENOrdering Facility: [facility] Address: [address] [id number] Result Comment: The [place] Diabetes Association (ADA) provides guidance for cutoff [...] Standards of Medical Care in Diabetes 2016, [place] [employer]. Diabetes Care. 2016.39(Suppl 1). Performed By: #### 2 4321-2, 3016-3, [id number], 2532-0 ####[facility] LABIA [id number] [place] [id number] [place] Potassium [Moles/Vol] 4.6 mmol/L Normal 3.7-5.1 [facility] Comment on above: Order Comment: Joseline clemons Type: BLOOD SPECIMENOrdering Facility: [facility] Address: [address] [place] [address] Performed By: #### 2 4321-2, 3016-3, [id number], 2532-0 ####[facility] LABCLIA [id number] [place] [address] [place] Sodium [Moles/Vol] 135 mmol/L Low 136-144 [facility] Comment on above: Order Comment: Speci men Type: BLOOD SPECIMENOrdering Facility: [facility] Address: [address] [address] Performed By: #### 2 4321-2, 3016-3, [id number], 2532-0 ####[facility] LABCLIA [id number] [place] [address] [place] Urea nitrogen [Mass/Vol] 52 mg/dL High 9-24 [facility] Comment on above: Order Comment: Speci men Type: BLOOD SPECIMENOrdering Facility: [facility] Address: [address] [address] Performed By: #### 2 4321-2, 3016-3, [id number], 2532-0 ####[facility] LABCLIA [id number] [place] [address] [place] CASE MGT INIT ASSESon 2022 CASE MGT INIT ASSES Normal [facility] CBC W Auto Differential pane l (Bld)on 03-21-2023 Basophils (Bld) [#/Vol] 0.07 10*3/uL Normal <0.11 [facility] Comment on above: Order Comment: Speci men Type: BLOOD SPECIMENOrdering Facility: [facility] Address: [address] Performed By: #### 5 7021-8 ####[facility] LABCLIA [id number] [place] [address] [place] Basophils/100 WBC (Bld) 0.8 % Normal [facility] Comment on above: Order Comment: Speci men Type: BLOOD SPECIMENOrdering Facility: [facility] Address: [address] Performed By: #### 5 7021-8 ####[facility] LABCLIA [id number] [place] [address] [place] [facility] Differential cell count method Nom (Bld) Auto Normal [facility] Comment on above: Order Comment: Speci men Type: BLOOD SPECIMENOrdering Facility: [facility] Address: [address] Performed By: #### 5 7021-8 ####[facility] LABCLIA [id number] [place] [address] [place] Eosinophils (Bld) [#/Vol] 0.19 10*3/uL Normal <0.46 [facility] Comment on above: Order Comment: Speci men Type: BLOOD SPECIMENOrdering Facility: [facility] Address: [address] [place] [address] Performed By: #### 5 7021-8 ####[facility] LABIA [id number] [place] [address] [place] Eosinophils/100 WBC (Bld) 2.2 % Normal [facility] Comment on above: Order Comment: Speci men Type: BLOOD SPECIMENOrdering Facility: [facility] Address: [address] [place] [address] Performed By: #### 5 7021-8 ####[facility] LABIA [id number] [place] [address] [place] Erythrocyte distribution width (RBC) [Ratio] 20.3 % High 11.5-15.0 [facility] Comment on above: Order Comment: Speci men Type: BLOOD SPECIMENOrdering Facility: [facility] Address: [address] [place] [address] Performed By: #### 5 7021-8 ####[facility] LABCLIA [id number] [address] [place] [facility] Hematocrit (Bld) [Volume fraction] 36.3 % Low 39.0-51.0 [facility] Comment on above: Order Comment: Speci men Type: BLOOD SPECIMENOrdering Facility: [facility] Address: [address] [place] [address] Performed By: #### 5 7021-8 ####[facility] LABCLIA [id number] [place] [address] [place] Hemoglobin (Bld) [Mass/Vol] 11.2 g/dL Low 13.0-17.0 [facility] Comment on above: Order Comment: Speci men Type: BLOOD SPECIMENOrdering Facility: [facility] Address: [address] [place] [address] Performed By: #### 5 7021-8 ####[facility] LABCLIA [id number] [address] [place] Immature granulocytes (Bld) [#/Vol] 0.04 10*3/uL Normal <0.10 [facility] Comment on above: Order Comment: Speci men Type: BLOOD SPECIMENOrdering Facility: [facility] Address: [address] [place] [address] Performed By: #### 5 7021-8 ####[facility] LABCLIA [id number] [address] [place] Immature granulocytes/100 WBC (Bld) 0.5 % Normal [facility] Comment on above: Order Comment: Speci men Type: BLOOD SPECIMENOrdering Facility: [facility] Address: [address] [place] [address] Performed By: #### 5 7021-8 ####[facility] LABCLIA [id number] [place] [address] [place] Lymphocytes (Bld) [#/Vol] 0.75 10*3/uL Low 1.00-4.00 [facility] Comment on above: Order Comment: Speci men Type: BLOOD SPECIMENOrdering Facility: [facility] Address: [address] [address] Performed By: #### 5 7021-8 ####[facility] LABIA [id number] [address] [place] Lymphocytes/100 WBC (Bld) 8.9 % Normal [facility] Comment on above: Order Comment: Speci men Type: BLOOD SPECIMENOrdering Facility: [facility] Address: [address] Performed By: #### 5 7021-8 ####[facility] LABIA [id number] [place] [address] [place] MCH (RBC) [Entitic mass] 24.9 pg Low 26.0-34.0 [facility] Comment on above: Order Comment: Speci men Type: BLOOD SPECIMENOrdering Facility: [facility] Address: [address] Performed By: #### 5 7021-8 ####[facility] LABIA [id number] [place] [address] [place] MCHC (RBC) [Mass/Vol] 30.9 g/dL Normal 30.5-36.0 [facility] Comment on above: Order Comment: Speci men Type: BLOOD SPECIMENOrdering Facility: [facility] Address: [address] Performed By: #### 5 7021-8 ####[facility] LABIA [id number] [place] [address] [place] MCV (RBC) [Entitic vol] 80.7 fL Normal 80.0-100.0 [facility] Comment on above: Order Comment: Speci men Type: BLOOD SPECIMENOrdering Facility: [facility] Address: [address] [place] [address] Performed By: #### 5 7021-8 ####[facility] LABCLIA [id number] [place] [address] [place] Monocytes (Bld) [#/Vol] 0.70 10*3/uL Normal <0.87 [facility] Comment on above: Order Comment: Speci men Type: BLOOD SPECIMENOrdering Facility: [facility] Address: [address] [place] [address] Performed By: #### 5 7021-8 ####[facility] LABCLIA [id number] [place] [address] [place] Monocytes/100 WBC (Bld) 8.3 % Normal [facility] Comment on above: Order Comment: Speci men Type: BLOOD SPECIMENOrdering Facility: [facility] Address: [address] [place] [address] Performed By: #### 5 7021-8 ####[facility] LABCLIA [id number] [place] [address] [place] Neutrophils (Bld) [#/Vol] 6.71 10*3/uL Normal 1.45-7.50 [facility] Comment on above: Order Comment: Speci men Type: BLOOD SPECIMENOrdering Facility: [facility] Address: [address] [place] [address] Performed By: #### 5 7021-8 ####[facility] LABCLIA [id number] [place] [address] [place] Neutrophils/100 WBC (Bld) 79.3 % Normal [facility] Comment on above: Order Comment: Speci men Type: BLOOD SPECIMENOrdering Facility: [facility] Address: [address] [place] [address] Performed By: #### 5 7021-8 ####[facility] LABCLIA [id number] [place] [address] [place] Nucleated RBC (Bld) [#/Vol] 0.03 10*3/uL High <0.01 [facility] Comment on above: Order Comment: Speci men Type: BLOOD SPECIMENOrdering Facility: [facility] Address: [address] Performed By: #### 5 7021-8 ####[facility] [id number] [place] [address] [place] Nucleated RBC/100 WBC (Bld) [Ratio] 0.4 /100 WBC Normal [facility] Comment on above: Order Comment: Speci men Type: BLOOD SPECIMENOrdering Facility: [facility] Address: [address] Performed By: #### 5 7021-8 ####[facility] [id number] [place] [address] [place] Platelet mean volume (Bld) [Entitic vol] 9.4 fL Normal 9.0-12.7 [facility] Comment on above: Order Comment: Speci men Type: BLOOD SPECIMENOrdering Facility: [facility] Address: [address] [place] [address] Performed By: #### 5 7021-8 ####[facility] [id number] [place] [address] [place] Platelets (Bld) [#/Vol] 255 10*3/uL Normal 150-400 [facility] Comment on above: Order Comment: Speci men Type: BLOOD SPECIMENOrdering Facility: [facility] Address: [address] [place] [address] Performed By: #### 5 7021-8 ####[facility] LABIA [id number] [place] [address] [place] RBC (Bld) [#/Vol] 4.50 10*6/uL Normal 4.20-6.00 [facility] Comment on above: Order Comment: Speci men Type: BLOOD SPECIMENOrdering Facility: [facility] Address: [address] Performed By: #### 5 7021-8 ####[facility] LABIA [id number] [place] [address] [place] WBC (Bld) [#/Vol] 8.46 10*3/uL Normal 3.70-11.00 [facility] Comment on above: Order Comment: Speci men Type: BLOOD SPECIMENOrdering Facility: [facility] Address: [address] [place] [address] Performed By: #### 5 7021-8 ####[facility] [id number] [place] [address] [place] CBC panel Auto (Bld)on 03-21 Erythrocyte distribution width (RBC) [Ratio] 20.3 % High 11.5-15.0 [facility] Comment on above: Order Comment: Speci men Type: BLOOD SPECIMENOrdering Facility: [facility] Address: [address] [place], [place] [address] Performed By: #### 5 8410-2 ####[facility] [id number] [place] [address] [place] Hematocrit (Bld) [Volume fraction] 38.6 % Low 39.0-51.0 [facility] Comment on above: Order Comment: Speci men Type: BLOOD SPECIMENOrdering Facility: [facility] Address: [address] [place] [address] Performed By: #### 5 8410-2 ####[facility] [id number] [place] [address] [place] Hemoglobin (Bld) [Mass/Vol] 11.6 g/dL Low 13.0-17.0 [facility] Comment on above: Order Comment: Speci men Type: BLOOD SPECIMENOrdering Facility: [facility] Address: [address] [place] [address] Performed By: #### 5 8410-2 ####[facility] LABIA [id number] [address] [place] [facility] MCH (RBC) [Entitic mass] 24.7 pg Low 26.0-34.0 [facility] Comment on above: Order Comment: Speci men Type: BLOOD SPECIMENOrdering Facility: [facility] Address: [address] [address] Performed By: #### 5 8410-2 ####[facility] [id number] [address] [place] MCHC (RBC) [Mass/Vol] 30.1 g/dL Low 30.5-36.0 [facility] Comment on above: Order Comment: Speci men Type: BLOOD SPECIMENOrdering Facility: [facility] Address: [address] [place] [address] Performed By: #### 5 8410-2 ####[facility] [id number] [address] [place] [facility] MCV (RBC) [Entitic vol] 82.1 fL Normal 80.0-100.0 [facility] Comment on above: Order Comment: Speci men Type: BLOOD SPECIMENOrdering Facility: [facility] Address: [address] [place] [address] Performed By: #### 5 8410-2 ####[facility] [id number] [address] Nucleated RBC (Bld) [#/Vol] 0.03 10*3/uL High <0.01 [facility] Comment on above: Order Comment: Speci men Type: BLOOD SPECIMENOrdering Facility: [facility] Address: [address] [place] [address] Performed By: #### 5 8410-2 ####[facility] [id number] [address] [id number] [address] [place] Platelet mean volume (Bld) [Entitic vol] 9.5 fL Normal 9.0-12.7 [facility] Comment on above: Order Comment: Speci men Type: BLOOD SPECIMENOrdering Facility: [facility] Address: [address] [place] [address] Performed By: #### 5 8410-2 ####[facility] LABCLIA [id number] [place] [address] [place] Platelets (Bld) [#/Vol] 265 10*3/uL Normal 150-400 [facility] Comment on above: Order Comment: Speci men Type: BLOOD SPECIMENOrdering Facility: [facility] Address: [address] [place] [address] Performed By: #### 5 8410-2 ####[facility] LABCLIA [id number] [place] [address] [place] RBC (Bld) [#/Vol] 4.70 10*6/uL Normal 4.20-6.00 [facility] Comment on above: Order Comment: Speci men Type: BLOOD SPECIMENOrdering Facility: [facility] Address: [address] [place] [address] Performed By: #### 5 8410-2 ####[facility] LABCLIA [id number] [place] [address] [place] WBC (Bld) [#/Vol] 8.61 10*3/uL Normal 3.70-11.00 [facility] Comment on above: Order Comment: Speci men Type: BLOOD SPECIMENOrdering Facility: [facility] Address: [address] [place] [address] Performed By: #### 5 8410-2 ####[facility] LABCLIA [id number] [place] [address] [place] [facility] CRP [Mass/Vol] 2.1 mg/dL High <0.9 [facility] Comment on above: Order Comment: Speci men Type: BLOOD SPECIMENOrdering Facility: [facility] Address: [address] [address] Performed By: #### 1 988-5 ####[facility] LABCLIA [id number] [place] [address] [place] Comprehensive metabolic 2000 panelon 03-21-2023 Albumin [Mass/Vol] 3.6 g/dL Low 3.9-4.9 [facility] Comment on above: Order Comment: Speci men Type: BLOOD SPECIMENOrdering Facility: [facility] Address: [address] [place] [address] Performed By: #### 2 4323-8 ####[facility] LABCLIA [id number] [place] [address] [place] ALP [Catalytic activity/Vol] 159 U/L High 38-113 [facility] Comment on above: Order Comment: Speci men Type: BLOOD SPECIMENOrdering Facility: [facility] Address: [address] [place] [address] Performed By: #### 2 4323-8 ####[facility] LABCLIA [id number] [place] [address] [place] ALT [Catalytic activity/Vol] 17 U/L Normal 10-54 [facility] Comment on above: Order Comment: Speci men Type: BLOOD SPECIMENOrdering Facility: [facility] Address: [address] Performed By: #### 2 4323-8 ####[facility] LABCLIA [id number] [place] [address] [place] Anion gap [Moles/Vol] 12 mmol/L Normal 9-18 [facility] Comment on above: Order Comment: Speci men Type: BLOOD SPECIMENOrdering Facility: [facility] Address: [address] Performed By: #### 2 4323-8 ####[facility] LABCLIA [id number] [place] [address] [place] AST [Catalytic activity/Vol] 19 U/L Normal 14-40 [facility] Comment on above: Order Comment: Speci men Type: BLOOD SPECIMENOrdering Facility: [facility] Address: [address] [place], [place] [address] Performed By: #### 2 4323-8 ####[facility] LABCLIA [id number] [place] [address] [place] Bilirubin [Mass/Vol] 2.2 mg/dL High 0.2-1.3 [facility] Comment on above: Order Comment: Speci men Type: BLOOD SPECIMENOrdering Facility: [facility] Address: [address] [place], [place] [address] Performed By: #### 2 4323-8 ####[facility] LABCLIA [id number] [place] [address] [place] Calcium [Mass/Vol] 9.6 mg/dL Normal 8.5-10.2 [facility] Comment on above: Order Comment: Speci men Type: BLOOD SPECIMENOrdering Facility: [facility] Address: [address] [place], [place] [address] Performed By: #### 2 4323-8 ####[facility] LABCLIA [id number] [place] [address] [place] Chloride [Moles/Vol] 96 mmol/L Low 97-105 [facility] Comment on above: Order Comment: Speci men Type: BLOOD SPECIMENOrdering Facility: [facility] Address: [address] [place], [place] [address] Performed By: #### 2 4323-8 ####[facility] LABCLIA [id number] [place] [address] [place] CO2 [Moles/Vol] 26 mmol/L Normal 22-30 [facility] Comment on above: Order Comment: Speci men Type: BLOOD SPECIMENOrdering Facility: [facility] Address: [address] [address] Performed By: #### 2 4323-8 ####[facility] LABCLIA [id number] [place] [address] [place] Creatinine [Mass/Vol] 2.11 mg/dL High 0.73-1.22 [facility] Comment on above: Order Comment: Speci men Type: BLOOD SPECIMENOrdering Facility: [facility] Address: [address] [address] Performed By: #### 2 4323-8 ####[facility] LABIA [id number] [place] [address] [place] ESTIMATED GLOMERULAR FILTRATION RATE 34 mL/min/1.73m??? Low >=60 [facility] Comment on above: Order Comment: Speci men Type: BLOOD SPECIMENOrdering Facility: [facility] Address: [address] [place] [address] Result Comment: Syl mated Glomerular Filtration Rate [...] actual GFR. Performed By: #### 2 4323-8 ####[facility] LABIA [id number] [place] [address] [place] Glucose [Mass/Vol] 133 mg/dL High 74-99 [facility] Comment on above: Order Comment: Speci men Type: BLOOD SPECIMENOrdering Facility: [facility] Address: [address] [address] Result Comment: The [place] [employer] (ADA) provides guidance for cutoff [...] Standards of Medical Care in Diabetes 2016, [place] [employer]. Diabetes Care. 2016.39(Suppl 1). Performed By: #### 2 4323-8 ####[facility] LABCLIA [id number] [place] [address] [place] Potassium [Moles/Vol] 4.6 mmol/L Normal 3.7-5.1 [facility] Comment on above: Order Comment: Speci men Type: BLOOD SPECIMENOrdering Facility: [facility] Address: [address] [address] Performed By: #### 2 4323-8 ####[facility] LABIA [id number] [place] [address] [place] Protein [Mass/Vol] 6.4 g/dL Normal 6.3-8.0 [facility] Comment on above: Order Comment: Speci men Type: BLOOD SPECIMENOrdering Facility: [facility] Address: [address] [address] Performed By: #### 2 4323-8 ####[facility] LABCLIA [id number] [place] [address] [place] Sodium [Moles/Vol] 134 mmol/L Low 136-144 [facility] Comment on above: Order Comment: Speci men Type: BLOOD SPECIMENOrdering Facility: [facility] Address: [address] [address] Performed By: #### 2 4323-8 ####[facility] LABCLIA [id number] [place] [facility] Urea nitrogen [Mass/Vol] 53 mg/dL High 9-24 [facility] Comment on above: Order Comment: Joseline men Type: BLOOD SPECIMENOrdering Facility: [facility] Address: [address] [place] [address] Performed By: #### 2 4323-8 ####[facility] LABCLIA [id number] [place] [address] [place] ESR Westergren method (Bld) [Velocity]on 03-21-2023 ESR (Bld) [Velocity] 5 mm/h Normal 0-15 [facility] Comment on above: Order Comment: Joseline clemons Type: BLOOD SPECIMENOrdering Facility: [facility] Address: [address] [place] [address] Performed By: #### 4 537-7 ####[facility] LABIA [id number] [address] HbA1c (Bld)on 03-21-2023 Average glucose Estimated from glycated hemoglobin (Bld) [Mass/Vol] 160 mg/dL Normal [facility] Comment on above: Order Comment: Joseline clemons Type: BLOOD SPECIMENOrdering Facility: [facility] Address: [address] [place] [address] Result Comment: eAG: (Estimated average glucose) is a calculated value from HgbA1c and is sales representative health insurance of the average blood glucose level in the last 2-3 month period. Performed By: #### 5 5454-3 ####[facility] LABIA [id number] [address] [place] [facility] HbA1c (Bld) [Mass fraction] 7.2 % High 4.3-5.6 [facility] Comment on above: Order Comment: Joseline clemons Type: BLOOD SPECIMENOrdering Facility: [facility] Address: [address] [place] [address] Result Comment: [place] Diabetes Association guidelines indicate that patients with HgbA1c in the range 5.7-6.4% are at increased risk for development of diabetes, and intervention by lifestyle modification may be beneficial. HgbA1c greater or equal to 6.5% is considered diagnostic of diabetes. Performed By: #### 5 5454-3 ####[facility] LABCLIA [id number] [place] [address] [place] LDH SerPl-cCncon 03-21-2023 LDH [Catalytic activity/Vol] 265 U/L High 135-225 [facility] Comment on above: Order Comment: Speci men Type: BLOOD SPECIMENOrdering Facility: [facility] Address: [address] [place] [address] Performed By: #### 2 4321-2, 3015-3, [id number], 2532-0 ####[facility] LABCLIA [id number] [place] [address] [place] PROTEIN ELECTROPHORESIS SERU M (P)on 03-21-2023 Albumin [Mass/Vol] 3.32 g/dL Low 3.43-5.41 [facility] Comment on above: Order Comment: Speci men Type: BLOOD SPECIMENOrdering Facility: [facility] Address: [address] [place] [address] Performed By: #### 2 1-2, 3015-3, [id number], 2532-0 ####[facility] LABCLIA [id number] [place] [address] [place] Alpha 1 globulin Elph [Mass/Vol] 0.43 g/dL Normal 0.18-0.43 [facility] Comment on above: Order Comment: Speci men Type: BLOOD SPECIMENOrdering Facility: [facility] Address: [address] [address] Performed By: #### 2 4321-2, 6-3, [id number], 2532-0 ####[facility] LABCLIA [id number] [place] [address] [place] Alpha 2 globulin Elph [Mass/Vol] 0.88 g/dL Normal 0.42-0.98 [facility] Comment on above: Order Comment: Speci men Type: BLOOD SPECIMENOrdering Facility: [facility] Address: [address] [place] [address] Performed By: #### 2 4321-2, 3016-3, [id number], 2532-0 ####[facility] LABCLIA [id number] [place] [address] [place] Beta globulin Elph [Mass/Vol] 0.89 g/dL Normal 0.61-1.17 [facility] Comment on above: Order Comment: Speci men Type: BLOOD SPECIMENOrdering Facility: [facility] Address: [address] [place] [address] Performed By: #### 2 4321-2, 6-3, [id number], 2532-0 ####[facility]CLIA [id number] [place] [address] [place] Gamma globulin Elph [Mass/Vol] 0.78 g/dL Normal 0.53-1.51 [facility] Comment on above: Order Comment: Speci men Type: BLOOD SPECIMENOrdering Facility: [facility] Address: [address] [place] [address] Performed By: #### 2 4321-2, 6-3, [id number], 2532-0 ####[facility]CLIA [id number] [place] [address] [place] INTERPRETATION COMMENT FOR PROTEIN ELECTROPHORESIS Normal [facility] Comment on above: Order Comment: Speci men Type: BLOOD SPECIMENOrdering Facility: [facility] Address: [address] [place] [address] Performed By: #### 2 4321-2, 3016-3, [id number], 2532-0 ####[facility] LABCLIA [id number] [address] [address] [place] M-PROTEIN LOCATION Normal [facility] Comment on above: Order Comment: Speci men Type: BLOOD SPECIMENOrdering Facility: [facility] Address: [address] [place] [address] Result Comment: Not Applicable. Performed By: #### 2 4321-2, 3016-3, [id number], 2532-0 ####[facility] LABCLIA [id number] [address] [place] Protein Fractions [Interp] An atypical region of restricted mobility is identified on protein electrophoresis. Abnormal No definitive M protein is identified on protein electrophor esis. [facility] Comment on above: Order Comment: Speci men Type: BLOOD SPECIMENOrdering Facility: [facility] Address: [address] [place] [address] Performed By: #### 2 4321-2, 3016-3, [id number], 2532-0 ####[facility] LABCLIA [id number] [address] Protein.monoclonal Elph [Mass/Vol] 0.00 g/dL Normal <=0.00 [facility] Comment on above: Order Comment: Speci men Type: BLOOD SPECIMENOrdering Facility: [facility] Address: [address] [place] [address] Performed By: #### 2 4321-2, 6-3, [id number], 2532-0 ####[facility] LABCLIA [id number] [address] [place] SPE STAFF REVIEW Reviewed by Angeles Russo MD Normal [facility] Comment on above: Order Comment: Speci men Type: BLOOD SPECIMENOrdering Facility: [facility] Address: [address] [place] [address] Performed By: #### 2 4321-2, 3016-3, [id number], 2532-0 ####[facility] LABCLIA [id number] [address] [place] Prot/Creat Uron 03-21-2023 Protein/Creatinine (U) [Mass ratio] 0.24 mg/mg High <0.15 [facility] Comment on above: Order Comment: Speci men Type: URINE SPECIMENOrdering Facility: [facility] Address: [address] [place] [address] Result Comment: Adul t Proteinuria Categories:<0.15 mg/mg is considered normal to mildly increased0.15 - 0.50 mg/mg is considered moderately increased>0.50 mg/mg is considered severely increasedKDIGO. (2013). KDIGO 2012 Clinical Practice Guideline for the Evaluation and Management of Chronic Kidney Disease. Official Journal of the International Society of Nephrology, 3(1), 1-150. Performed By: #### 2 890-2 ####[facility] LABIA [id number] [address] STATES OF [facility] Protein/Creatinine (U) [Mass ratio]on 03-21-2023 Creatinine (U) [Mass/Vol] 28.9 mg/dL Normal 20.0-300.0 [facility] Comment on above: Order Comment: Speci men Type: URINE SPECIMENOrdering Facility: [facility] Address: [address] [place] [address] Performed By: #### 2 890-2 ####[facility] [id number] [address] [place] [facility] Protein (U) [Mass/Vol] 7 mg/dL Normal 0-20 [facility] Comment on above: Order Comment: Speci men Type: URINE SPECIMENOrdering Facility: [facility] Address: [address] [place] [address] Performed By: #### 2 890-2 ####[facility] LABIA [id number] [address] OF [facility] THERAPY NTon 03-21-2023 THERAPY NT Normal [facility] THERAPY NT Normal [facility] TSH SerPl-aCncon 03-21-2023 TSH Qn 3.650 m[IU]/L Normal 0.270-4.200 [facility] Comment on above: Order Comment: Speci men Type: BLOOD SPECIMENOrdering Facility: [facility] Address: [address] [place] [address] Performed By: #### 2 4321-2, 3016-3, [id number], 2532-0 ####[facility] LABCLIA [id number] [place] [address] [place] URINE PROTEIN ELECTROPHORESI S RANDOM (P)on 03-21-2023 Albumin Elph (U) [Mass fraction] 73.16 % Normal [facility] Comment on above: Order Comment: Speci men Type: URINE SPECIMENOrdering Facility: [facility] Address: [address] [place] [address] Performed By: #### U ACR, [id number] ####[facility] LABCLIA [id number] [place] [address] [place] Alpha 1 globulin Elph (U) [Mass fraction] 7.98 % Normal [facility] Comment on above: Order Comment: Speci men Type: URINE SPECIMENOrdering Facility: [facility] Address: [address] [place] [address] Performed By: #### U ACR, [id number] ####[facility] LABCLIA [id number] [place] [address] [place] Alpha 2 globulin Elph (U) [Mass fraction] 6.92 % Normal [facility] Comment on above: Order Comment: Speci men Type: URINE SPECIMENOrdering Facility: [facility] Address: [address] [place] [address] Performed By: #### U ACR, [id number] ####[facility] LABCLIA [id number] [place] [address] [place] Beta globulin Elph (U) [Mass fraction] 9.94 % Normal [facility] Comment on above: Order Comment: Speci men Type: URINE SPECIMENOrdering Facility: [facility] Address: [address] [address] Performed By: #### U ACR, [id number] ####[facility] LABCLIA [id number] [address] STATES [facility] Gamma globulin Elph (U) [Mass fraction] 2.00 % Normal [facility] Comment on above: Order Comment: Speci men Type: URINE SPECIMENOrdering Facility: [facility] Address: [address] [address] Performed By: #### U ACR, [id number] ####[facility] LABCLIA [id number] [address] INTERPRETATION COMMENT FOR PROTEIN ELECTROPHORESIS Normal [facility] Comment on above: Order Comment: Speci men Type: URINE SPECIMENOrdering Facility: [facility] Address: [address] Performed By: #### U ACR, [id number] ####[facility] LABCLIA [id number] [address] [place] Protein Fractions Elph Jarrod (U) [Interp] No definitive M protein is identified on protein electrophoresis. Normal No definitive M protein is identified on protein electrophor esis. [facility] Comment on above: Order Comment: Speci men Type: URINE SPECIMENOrdering Facility: [facility] Address: [address] Performed By: #### U ACR, [id number] ####[facility] LABCLIA [id number] [address] STAFF REVIEW (URINE ELECTRO) Reviewed by Angeles Russo MD Normal [facility] Comment on above: Order Comment: Speci men Type: URINE SPECIMENOrdering Facility: [facility] Address: [address] Performed By: #### U ACR, [id number] ####[facility] LABCLIA [id number] [place] [address] [place] US KIDNEY/BLADDERon 03-21-20 US KIDNEY/BLADDER Normal [facility] Urinalysis complete panel (U )on 03-21-2023 Bilirubin Ql (U) Negative Normal Negative [facility] Comment on above: Order Comment: Speci men Type: URINE SPECIMENOrdering Facility: [facility] Address: [address] [place] [address] Performed By: #### 2 4356-8 ####[facility] LABCLIA [id number] [place] [address] [place] Clarity (Unsp spec) Clear Normal Clear [facility] Comment on above: Order Comment: Speci men Type: URINE SPECIMENOrdering Facility: [facility] Address: [address] [place] [address] Performed By: #### 2 4356-8 ####[facility] LABIA [id number] [place] [address] [place] Color (U) Light Yellow Normal Yellow [facility] Comment on above: Order Comment: Speci men Type: URINE SPECIMENOrdering Facility: [facility] Address: [address] [place] [address] Performed By: #### 2 4356-8 ####[facility] LABIA [id number] [place] [address] [place] Epithelial cells LM.HPF (Urine sed) [#/Area] Few Normal [facility] Comment on above: Order Comment: Speci men Type: URINE SPECIMENOrdering Facility: [facility] Address: [address] [place] [address] Performed By: #### 2 4356-8 ####[facility] LABCLIA [id number] [place] [address] [place] Glucose Test strip (U) [Mass/Vol] Negative Normal Trace, Negative [facility] Comment on above: Order Comment: Speci men Type: URINE SPECIMENOrdering Facility: [facility] Address: [address] Performed By: #### 2 4356-8 ####[facility] LABCLIA [id number] [place] [address] [place] Hemoglobin Ql (U) Negative Normal Negative, Trace [facility] Comment on above: Order Comment: Speci men Type: URINE SPECIMENOrdering Facility: [facility] Address: [address] [address] Performed By: #### 2 4356-8 ####[facility] LABCLIA [id number] [place] [address] [place] Ketones Ql (U) Negative Normal Trace, Negative [facility] Comment on above: Order Comment: Speci men Type: URINE SPECIMENOrdering Facility: [facility] Address: [address] Performed By: #### 2 4356-8 ####[facility] LABCLIA [id number] [place] [address] [place] Leukocyte esterase Test strip Ql (U) Negative Normal Negative, 25 Aron/uL [facility] Comment on above: Order Comment: Speci men Type: URINE SPECIMENOrdering Facility: [facility] Address: [address] Performed By: #### 2 4356-8 ####[facility] LABCLIA [id number] [place] [address] [place] Nitrite Ql (U) Negative Normal Negative [facility] Comment on above: Order Comment: Speci men Type: URINE SPECIMENOrdering Facility: [facility] Address: [address] Performed By: #### 2 4356-8 ####[facility] LABCLIA [id number] [place] [address] [place] pH (U) 6.5 [pH] Normal 5.0-8.0 [facility] Comment on above: Order Comment: Speci men Type: URINE SPECIMENOrdering Facility: [facility] Address: [address] [place] [address] Performed By: #### 2 4356-8 ####[facility] LABIA [id number] [place] [address] [place] Protein (U) [Mass/Vol] Negative Normal Trace, Negative [facility] Comment on above: Order Comment: Speci men Type: URINE SPECIMENOrdering Facility: [facility] Address: [address] [place] [address] Performed By: #### 2 4356-8 ####[facility] LABIA [id number] [place] [address] [place] RBC LM.HPF (Urine sed) [#/Area] 0-3 /HPF Normal 0-3 /HPF [facility] Comment on above: Order Comment: Speci men Type: URINE SPECIMENOrdering Facility: [facility] Address: [address] [place], [place] [address] Performed By: #### 2 4356-8 ####[facility] LABIA [id number] [place] [address] [place] Specific gravity (U) [Rel density] 1.009 Normal 1.005-1.030 [facility] Comment on above: Order Comment: Speci men Type: URINE SPECIMENOrdering Facility: [facility] Address: [address] [place], [place] [address] Performed By: #### 2 4356-8 ####[facility] LABIA [id number] [place] [address] [place] Urobilinogen Ql (U) 1+ Abnormal Negative [facility] Comment on above: Order Comment: Speci men Type: URINE SPECIMENOrdering Facility: [facility] Address: [address] [place] [address] Performed By: #### 2 4356-8 ####[facility] LABCLIA [id number] [place] [address] [place] WBC LM.HPF (Urine sed) [#/Area] 0-5 /HPF Normal 0-5 /HPF [facility] Comment on above: Order Comment: Speci men Type: URINE SPECIMENOrdering Facility: [facility] Address: [address] [id number] Performed By: #### 2 4356-8 ####[facility] LABCLIA [id number] [place] [address] [place] Basic Metabolic Profon 03-20 Anion gap [Moles/Vol] 12 mmol/L Normal 9-17 [facility] Comment on above: Performed By: #### B MP #### [facility] [address] [place], [place] [address] Pantograph Setter: Sy Rojas MD BUN/CRE Ratio 25 High 9-20 [facility] Comment on above: Performed By: #### B MP #### [facility] [address] [place], [place] [address] Pantograph Setter: Sy Rojas MD Calcium [Mass/Vol] 9.5 mg/dL Normal 8.6-10.4 [facility] Comment on above: Performed By: #### B MP #### [facility] [address] [place] [address] Pantograph Setter: Sy Rojas MD Chloride [Moles/Vol] 94 mmol/L Low 98-107 [facility] Comment on above: Performed By: #### B MP #### [facility] [address] [place], [place] [address] Pantograph Setter: Sy Rojas MD CO2 [Moles/Vol] 26 mmol/L Normal 20-31 [facility] Comment on above: Performed By: #### B MP #### [facility] [address] [place] [address] Pantograph Setter: Sy Rojas MD Creatinine [Mass/Vol] 2.1 mg/dL High 0.7-1.2 [facility] Comment on above: Performed By: #### B MP #### [facility] [address] [place] [address] Pantograph Setter: Sy Rojas MD GFR/1.73 sq M.predicted among non-blacks MDRD (S/P/Bld) [Vol rate/Area] 34 mL/min/{1.73_m2} Low >60 [facility] Comment on above: Result Comment: These results [...] secretion. Performed By: #### B MP #### [facility] [address] [place] [address] Pantograph Setter: Sy Rojas MD Glucose [Mass/Vol] 50 mg/dL Critically low 70-99 [facility] Comment on above: Performed By: #### B MP #### [facility] [address] [place] [address] Pantograph Setter: Sy Rojas MD Potassium [Moles/Vol] 4.2 mmol/L Normal 3.7-5.3 [facility] Comment on above: Performed By: #### B MP #### [facility] [address] [place] [address] Pantograph Setter: Sy Rojas MD Sodium [Moles/Vol] 132 mmol/L Low 135-144 [facility] Comment on above: Performed By: #### B MP #### [facility] [address] [place] [address] Pantograph Setter: Sy Rojas MD Urea nitrogen [Mass/Vol] 53 mg/dL High 03-29 [facility] Comment on above: Performed By: #### B MP #### [facility] [address] [place] [address] Pantograph Setter: Sy Rojas MD CBC W Auto Differential pane l (Bld)on 03-20-2023 Basophils (Bld) [#/Vol] 0.07 10*3/uL Normal <0.11 [facility] Comment on above: Order Comment: Speci men Type: BLOOD SPECIMENOrdering Facility: [facility] Address: [address] [place] [address] Performed By: #### 5 7021-8, 89043-9 ####[facility] LABCLIA [id number] [place] [address] [place] Basophils/100 WBC (Bld) 0.8 % Normal [facility] Comment on above: Order Comment: Speci men Type: BLOOD SPECIMENOrdering Facility: [facility] Address: [address] [place] [address] Performed By: #### 5 7021-8, 24153-0 ####[facility] LABCLIA [id number] [place] [address] [place] Differential cell count method Nom (Bld) Auto Normal [facility] Comment on above: Order Comment: Speci men Type: BLOOD SPECIMENOrdering Facility: [facility] Address: [address] [place], [place] [address] Performed By: #### 5 7021-8, 56745-3 ####[facility] LABCLIA [id number] [place] [address] [place] Eosinophils (Bld) [#/Vol] 0.22 10*3/uL Normal <0.46 [facility] Comment on above: Order Comment: Speci men Type: BLOOD SPECIMENOrdering Facility: [facility] Address: [address] [place], [place] [address] Performed By: #### 5 7021-8, 62572-1 ####[facility] LABCLIA [id number] [address] STATES OF [facility] Eosinophils/100 WBC (Bld) 2.4 % Normal [facility] Comment on above: Order Comment: Speci men Type: BLOOD SPECIMENOrdering Facility: [facility] Address: [address] [place], [place] [address] Performed By: #### 5 7021-8, 44211-8 ####[facility] LABCLIA [id number] [place] [address] [place] Erythrocyte distribution width (RBC) [Ratio] 20.4 % High 11.5-15.0 [facility] Comment on above: Order Comment: Speci men Type: BLOOD SPECIMENOrdering Facility: [facility] Address: [address] [place], [place] [address] Performed By: #### 5 7021-8, 42914-6 ####[facility] LABIA [id number] [address] [place] Hematocrit (Bld) [Volume fraction] 38.8 % Low 39.0-51.0 [facility] Comment on above: Order Comment: Speci men Type: BLOOD SPECIMENOrdering Facility: [facility] Address: [address] [place], [place] [address] Performed By: #### 5 7021-8, 99040-3 ####[facility] LABIA [id number] [place] [address] [place] Hemoglobin (Bld) [Mass/Vol] 11.7 g/dL Low 13.0-17.0 [facility] Comment on above: Order Comment: Speci men Type: BLOOD SPECIMENOrdering Facility: [facility] Address: [address] Performed By: #### 5 7021-8, 17803-7 ####[facility] LABCLIA [id number] [place] [address] [place] Immature granulocytes (Bld) [#/Vol] 0.03 10*3/uL Normal <0.10 [facility] Comment on above: Order Comment: Speci men Type: BLOOD SPECIMENOrdering Facility: [facility] Address: [address] Performed By: #### 5 7021-8, 59980-3 ####[facility] LABIA [id number] [address] [place] Immature granulocytes/100 WBC (Bld) 0.3 % Normal [facility] Comment on above: Order Comment: Speci men Type: BLOOD SPECIMENOrdering Facility: [facility] Address: [address] Performed By: #### 5 7021-8, 60555-9 ####[facility] LABIA [id number] [place] [address] [place] Lymphocytes (Bld) [#/Vol] 0.69 10*3/uL Low 1.00-4.00 [facility] Comment on above: Order Comment: Speci men Type: BLOOD SPECIMENOrdering Facility: [facility] Address: [address] Performed By: #### 5 7021-8, 24356-7 ####[facility] LABIA [id number] [address] [place] Lymphocytes/100 WBC (Bld) 7.5 % Normal [facility] Comment on above: Order Comment: Speci men Type: BLOOD SPECIMENOrdering Facility: [facility] Address: [address] Performed By: #### 5 7021-8, 34045-3 ####[facility] LABCLIA [id number] [place] [address] [place] MCH (RBC) [Entitic mass] 24.8 pg Low 26.0-34.0 [facility] Comment on above: Order Comment: Speci men Type: BLOOD SPECIMENOrdering Facility: [facility] Address: [address] Performed By: #### 5 7021-8, 78680-2 ####[facility] LABCLIA [id number] [place] [address] [place] MCHC (RBC) [Mass/Vol] 30.2 g/dL Low 30.5-36.0 [facility] Comment on above: Order Comment: Speci men Type: BLOOD SPECIMENOrdering Facility: [facility] Address: [address] [place], [place] [address] Performed By: #### 5 7021-8, 53196-9 ####[facility] LABCLIA [id number] [place] [address] [place] MCV (RBC) [Entitic vol] 82.4 fL Normal 80.0-100.0 [facility] Comment on above: Order Comment: Speci men Type: BLOOD SPECIMENOrdering Facility: [facility] Address: [address] [place], [place] [address] Performed By: #### 5 7021-8, 69733-8 ####[facility] LABCLIA [id number] [place] [address] [place] Monocytes (Bld) [#/Vol] 0.67 10*3/uL Normal <0.87 [facility] Comment on above: Order Comment: Speci men Type: BLOOD SPECIMENOrdering Facility: [facility] Address: [address] [place], [place] [address] Performed By: #### 5 7021-8, 25452-8 ####[facility] LABCLIA [id number] [place] [address] [place] Monocytes/100 WBC (Bld) 7.3 % Normal [facility] Comment on above: Order Comment: Speci men Type: BLOOD SPECIMENOrdering Facility: [facility] Address: [address] [place] [address] Performed By: #### 5 7021-8, 30470-5 ####[facility] LABCLIA [id number] [place] [address] [place] Neutrophils (Bld) [#/Vol] 7.47 10*3/uL Normal 1.45-7.50 [facility] Comment on above: Order Comment: Speci men Type: BLOOD SPECIMENOrdering Facility: [facility] Address: [address] [place] [address] Performed By: #### 5 7021-8, 59364-8 ####[facility] LABCLIA [id number] [place] [address] [place] Neutrophils/100 WBC (Bld) 81.7 % Normal [facility] Comment on above: Order Comment: Speci men Type: BLOOD SPECIMENOrdering Facility: [facility] Address: [address] [place], [place] [address] Performed By: #### 5 7021-8, 30571-6 ####[facility] LABCLIA [id number] [place] [address] [place] Nucleated RBC (Bld) [#/Vol] 0.02 10*3/uL High <0.01 [facility] Comment on above: Order Comment: Speci men Type: BLOOD SPECIMENOrdering Facility: [facility] Address: [address] [place], [place] [address] Performed By: #### 5 7021-8, 62091-6 ####[facility] LABCLIA [id number] [place] [address] [place] Nucleated RBC/100 WBC (Bld) [Ratio] 0.2 /100 WBC Normal [facility] Comment on above: Order Comment: Speci men Type: BLOOD SPECIMENOrdering Facility: [facility] Address: [address] [place] [address] Performed By: #### 5 7021-8, 35527-4 ####[facility] LABCLIA [id number] [place] [address] [place] Platelet mean volume (Bld) [Entitic vol] 9.5 fL Normal 9.0-12.7 [facility] Comment on above: Order Comment: Speci men Type: BLOOD SPECIMENOrdering Facility: [facility] Address: [address] [place], [place] [address] Performed By: #### 5 7021-8, 71893-8 ####[facility] LABCLIA [id number] [place] [address] [place] Platelets (Bld) [#/Vol] 254 10*3/uL Normal 150-400 [facility] Comment on above: Order Comment: Speci men Type: BLOOD SPECIMENOrdering Facility: [facility] Address: [address] [place], [place] [address] Performed By: #### 5 7021-8, 06957-3 ####[facility] LABCLIA [id number] [place] [address] [place] RBC (Bld) [#/Vol] 4.71 10*6/uL Normal 4.20-6.00 [facility] Comment on above: Order Comment: Speci men Type: BLOOD SPECIMENOrdering Facility: [facility] Address: [address] [place], [place] [address] Performed By: #### 5 7021-8, 68471-4 ####[facility] LABCLIA [id number] [place] [address] [place] WBC (Bld) [#/Vol] 9.15 10*3/uL Normal 3.70-11.00 [facility] Comment on above: Order Comment: Speci men Type: BLOOD SPECIMENOrdering Facility: [facility] Address: [address] [place] [address] Performed By: #### 5 7021-8, 43611-6 ####[facility] LABCLIA [id number] [place] [id number] [place] Comprehensive metabolic 2000 panelon 03-20-2023 Albumin [Mass/Vol] 3.9 g/dL Normal 3.9-4.9 [facility] Comment on above: Order Comment: Speci men Type: BLOOD SPECIMENOrdering Facility: [facility] Address: [address] [place] [address] Performed By: #### 3 3762-6, [id number], , ####[facility] LABCLIA [id number] [place] [address] [place] ALP [Catalytic activity/Vol] 169 U/L High 38-113 [facility] Comment on above: Order Comment: Speci men Type: BLOOD SPECIMENOrdering Facility: [facility] Address: [address] Performed By: #### 3 3762-6, [id number], , ####[facility] LABCLIA [id number] [place] [address] [place] ALT [Catalytic activity/Vol] 19 U/L Normal 10-54 [facility] Comment on above: Order Comment: Speci men Type: BLOOD SPECIMENOrdering Facility: [facility] Address: [address] Performed By: #### 3 3762-6, [id number], , ####[facility] LABCLIA [id number] [place] [id number] [place] Anion gap [Moles/Vol] 11 mmol/L Normal 9-18 [facility] Comment on above: Order Comment: Speci men Type: BLOOD SPECIMENOrdering Facility: [facility] Address: [address] [place] [address] Performed By: #### 3 3762-6, [id number], , ####[facility] LABCLIA [id number] [place] [address] [place] AST [Catalytic activity/Vol] 21 U/L Normal 14-40 [facility] Comment on above: Order Comment: Speci men Type: BLOOD SPECIMENOrdering Facility: [facility] Address: [address] Performed By: #### 3 3762-6, [id number], , ####[facility] LABCLIA [id number] [place] [address] [place] Bilirubin [Mass/Vol] 2.2 mg/dL High 0.2-1.3 [facility] Comment on above: Order Comment: Speci men Type: BLOOD SPECIMENOrdering Facility: [facility] Address: [address] [place], [place] [address] Performed By: #### 3 3762-6, [id number], , ####[facility] LABCLIA [id number] [place] [address] [place] Calcium [Mass/Vol] 9.6 mg/dL Normal 8.5-10.2 [facility] Comment on above: Order Comment: Speci men Type: BLOOD SPECIMENOrdering Facility: [facility] Address: [address] [place] [address] Performed By: #### 3 3762-6, [id number], , ####[facility] LABCLIA [id number] [place] [id number] [place] Chloride [Moles/Vol] 96 mmol/L Low 97-105 [facility] Comment on above: Order Comment: Speci men Type: BLOOD SPECIMENOrdering Facility: [facility] Address: [address] [place] [address] Performed By: #### 3 3762-6, [id number], , ####[facility] LABCLIA [id number] [place] [address] [place] CO2 [Moles/Vol] 26 mmol/L Normal 22-30 [facility] Comment on above: Order Comment: Speci men Type: BLOOD SPECIMENOrdering Facility: [facility] Address: [address] [place] [address] Performed By: #### 3 3762-6, [id number], , ####[facility] LABIA [id number] [place] [address] [place] Creatinine [Mass/Vol] 2.14 mg/dL High 0.73-1.22 [facility] Comment on above: Order Comment: Speci men Type: BLOOD SPECIMENOrdering Facility: [facility] Address: [address] [place] [address] Performed By: #### 3 3762-6, [id number], , ####[facility] LABIA [id number] [place] [address] [place] ESTIMATED GLOMERULAR FILTRATION RATE 34 mL/min/1.73m??? Low >=60 [facility] Comment on above: Order Comment: Speci men Type: BLOOD SPECIMENOrdering Facility: [facility] Address: [address] [place] [address] Result Comment: Syl mated Glomerular Filtration Rate [...] actual GFR. Performed By: #### 3 3762-6, [id number], , ####[facility] LABCLIA [id number] [place] [id number] [place] Glucose [Mass/Vol] 90 mg/dL Normal 74-99 [facility] Comment on above: Order Comment: Speci men Type: BLOOD SPECIMENOrdering Facility: [facility] Address: [address] [place] [address] Result Comment: The [place] [employer] (ADA) provides guidance for cutoff [...] Standards of Medical Care in Diabetes 2016, [place] [employer]. Diabetes Care. 2016.39(Suppl 1). Performed By: #### 3 3762-6, [id number], , ####[facility] LABCLIA [id number] [address] [address] [place] Potassium [Moles/Vol] 4.9 mmol/L Normal 3.7-5.1 [facility] Comment on above: Order Comment: Reneei men Type: BLOOD SPECIMENOrdering Facility: [facility] Address: [address] [place] [address] Performed By: #### 3 3762-6, [id number], , ####[facility] LABCLIA [id number] [address] [address] [place] Protein [Mass/Vol] 6.6 g/dL Normal 6.3-8.0 [facility] Comment on above: Order Comment: Speci men Type: BLOOD SPECIMENOrdering Facility: [facility] Address: [address] [place] [id number] Performed By: #### 3 3762-6, [id number], , 46593-6 ####[facility] LABCLIA [id number] [place] [id number] [place] Sodium [Moles/Vol] 133 mmol/L Low 136-144 [facility] Comment on above: Order Comment: Speci men Type: BLOOD SPECIMENOrdering Facility: [facility] Address: [address] [place] [id number] Performed By: #### 3 3762-6, [id number], , ####[facility] LABCLIA [id number] [place] [address] [place] Urea nitrogen [Mass/Vol] 53 mg/dL High 9-24 [facility] Comment on above: Order Comment: Speci men Type: BLOOD SPECIMENOrdering Facility: [facility] Address: [address] [place], [place] [address] Performed By: #### 3 3762-6, [id number], , ####[facility] LABCLIA [id number] [place] [id number] [place] ED NOTEon 03-20-2023 ED NOTE Normal [facility] ED NOTE HNO ID: [id number] Author: Miko Ivy, Medic Service: Emergency Medicine Author Type: First Line Supervisor and Forensic Anthropologist Type: ED Notes Filed: 03/20/2023 12:55 PM Note Text: Labs were drawn and sent; 1 purple, 1 green Normal [facility] ED PROV NOTEon 03-20-2023 ED PROV NOTE Normal [facility] HIGH SENSITIVITY TROPONIN T (INITIAL)on 03-20-2023 HIGH SENSITIVITY REINIER 58 ng/L High <12 [facility] Comment on above: Order Comment: Speci men Type: BLOOD SPECIMENOrdering Facility: [facility] Address: [address] [place] [address] Result Comment: When assessing risk for acute [...] day MACE. Performed By: #### 3 3762-6, [id number], 05178-5, 50342-9 ####[facility] LABCLIA [id number] [place] [address] [place] HIGH SENSITIVITY TROPONIN T (SECOND)on 03-20-2023 HIGH SENSITIVITY REINIER 54 ng/L High <12 [facility] Comment on above: Order Comment: Speci men Type: BLOOD SPECIMENOrdering Facility: [facility] Address: [address] [place] [address] Result Comment: When assessing risk for acute [...] 30 day MACE. Performed By: #### L [id number] ####[facility] LABCLIA [id number] [place] [address] [place] HIGH SENSITIVITY TROPONIN T (THIRD) 3 HRS AFTER INITIALon 03-20-2023 HIGH SENSITIVITY REINIER 53 ng/L High <12 [facility] Comment on above: Order Comment: Speci men Type: BLOOD SPECIMENOrdering Facility: [facility] Address: [address] [address] Result Comment: When assessing risk for acute [...] day MACE. Performed By: #### 4 542-7, [id number], 98073-0 ####[facility] LABCLIA [id number] [place] [address] [place] HISTORY PHYSICALon 3 HISTORY PHYSICAL Normal [facility] Haptoglob SerPl-ncon 03-20 Haptoglobin [Mass/Vol] 244 mg/dL High 31-238 [facility] Comment on above: Order Comment: Speci men Type: BLOOD SPECIMENOrdering Facility: [facility] Address: [address] [address] Performed By: #### 4 542-7, [id number], 08559-2 ####[facility] LABCLIA [id number] [place] [address] [place] Magnesium [facility] 03-20 Magnesium [Mass/Vol] 2.0 mg/dL Normal 1.7-2.3 [facility] Comment on above: Order Comment: Speci men Type: BLOOD SPECIMENOrdering Facility: [facility] Address: [address] [place] [address] Performed By: #### 3 3762-6, [id number], , 31312-3 ####[facility] LABCLIA [id number] [address] [place] NT-proBNP [facility] 03-20 Natriuretic peptide.B prohormone N-Terminal [Mass/Vol] 8423 pg/mL High <125 [facility] Comment on above: Order Comment: Speci men Type: BLOOD SPECIMENOrdering Facility: [facility] Address: [address] [place] [address] Performed By: #### 3 3762-6, [id number], , 96455-7 ####[facility] LABCLIA [id number] [address] [place] NURSING PROGon 03-20-2023 NURSING PROG Normal [facility] bilirubin panel [Ma ss/Vol]on 03-20-2023 Bilirubin [Mass/Vol] 2.2 mg/dL High 0.2-1.3 [facility] Comment on above: Order Comment: Speci men Type: BLOOD SPECIMENOrdering Facility: [facility] Address: [address] [place], [place] [address] Performed By: #### 4 542-7, [id number], 32967-7 ####[facility] [id number] [address] [place] Bilirubin.conjugated [Mass/Vol] 0.5 mg/dL High <0.2 [facility] Comment on above: Order Comment: Speci men Type: BLOOD SPECIMENOrdering Facility: [facility] Address: [address] [place] [address] Performed By: #### 4 542-7, [id number], 55895-5 ####[facility] [id number] [address] STATES [facility] Bilirubin.indirect [Mass/Vol] 1.7 mg/dL High <1.4 [facility] Comment on above: Order Comment: Speci men Type: BLOOD SPECIMENOrdering Facility: [facility] Address: [address] [place], [place] [address] Performed By: #### 4 542-7, [id number], 06931-8 ####[facility] LABIA [id number] [place] [id number] [place] PT panel Coag (PPP)on 2022 INR Coag (PPP) [Relative time] 2.0 {INR} High 0.9-1.3 [facility] Comment on above: Order Comment: Speci men Type: BLOOD SPECIMENOrdering Facility: [facility] Address: [address] [place] [address] Result Comment: Baylee min K Antagonist (VKA) Therapeutic Range: INR 2 to 3 (Target INR of 2.5)Note: For patients treated with VKA drugs, such as warfarin, the [place] [employer] 2012 Guideline recommends [...] al. Chest 2012, 141:7S-47SNishimura RA, et al. [facility] 2017, 70: 252-289 Performed By: #### 3 4528-0 ####[facility] LABIA [id number] [place] [address] [place] PT Coag (PPP) [Time] 19.8 s High 9.7-13.0 [facility] Comment on above: Order Comment: Speci men Type: BLOOD SPECIMENOrdering Facility: [facility] Address: [address] [place] [address] Performed By: #### 3 4528-0 ####[facility] LABCLIA [id number] [place] [address] [place] Retics #on 03-20-2023 Reticulocytes (Bld) [#/Vol] 0.83982 10*3/uL Normal 0.018-0.100 [facility] Comment on above: Order Comment: Speci men Type: BLOOD SPECIMENOrdering Facility: [facility] Address: [address] [place] [address] Performed By: #### 5 7021-8, 36035-2 ####[facility] LABCLIA [id number] [place] [address] [place] Reticulocytes (Bld) [#/Vol]o n 03-20-2023 Reticulocytes/100 RBC (Bld) 1.9 % Normal 0.4-2.0 [facility] Comment on above: Order Comment: Speci men Type: BLOOD SPECIMENOrdering Facility: [facility] Address: [address] [place] [id number] Performed By: #### 5 7021-8, 09255-7 ####[facility] LABCLIA [id number] [facility] [place] [id number] [id number] [place] US ABD RIGHT UPPER QUADRANTo n 03-20-2023 US ABD RIGHT UPPER QUADRANT Normal [facility] US ABD SPLEEN -NBon 03-20-20 US ABD SPLEEN -NB Normal [facility] XR CHEST 2V FRONTAL/LATon XR CHEST 2V FRONTAL/LAT Normal [facility] Basic Metabolic Panelon 03-07 Anion gap [Moles/Vol] 11.0 mmol/L Normal 6.0-15.0 [facility] Comment on above: Performed By: #### B MP #### [facility] [address] [place] [address] [place] Calcium [Mass/Vol] 9.5 mg/dL Normal 8.6-10.3 [facility] Comment on above: Performed By: #### B MP #### [facility] [address] [place] [address] [place] Chloride [Moles/Vol] 102 mmol/L Normal 98-107 [facility] Comment on above: Performed By: #### B MP #### [facility] [address] [place] [address] [place] CO2 [Moles/Vol] 30.2 mmol/L Normal 21.0-31.0 [facility] Comment on above: Performed By: #### B MP #### [facility] [address] [place] [address] [place] Creatinine [Mass/Vol] 2.37 mg/dL High 0.70-1.30 [facility] Comment on above: Performed By: #### B MP #### [place] [address] [place] Creatinine Clr Calc Pharmacy 39.88 [facility] Comment on above: Result Comment: PERF ORMED BY: [place] [address] PATHOLOGIST PERSONAL CLOTHING LAUNDRY AIDE DHIRAJ CARLOS M.D. Performed By: #### B MP #### [place] [address] [place] GFR/1.73 sq M.predicted MDRD (S/P/Bld) [Vol rate/Area] 29.656 mL/min/{1.73_m2} Normal [facility] Comment on above: Performed By: #### B MP #### [address] Glucose [Mass/Vol] 44 mg/dL Off scale low 70-100 [facility] Comment on above: Result Comment: Crit ical Result Called to and read back by: HERNAN MEYERS at: 03/18/2023 07:15:01 by:[id number] Random Glucose Reference Range is dependent on time and content of last meal. Glucose of more than 200 mg/dL in a nonstressed, ambulatory subject supports the diagnosis of Diabetes Mellitus. ADA recommended reference range Performed By: #### B MP #### [address] Potassium [Moles/Vol] 4.2 mmol/L Normal 3.5-5.1 [facility] Comment on above: Performed By: #### B MP #### [address] Sodium [Moles/Vol] 139 mmol/L Normal 136-145 [facility] Comment on above: Performed By: #### B MP #### [address] Urea nitrogen [Mass/Vol] 54 mg/dL High 7-25 [facility] Comment on above: Performed By: #### B MP #### [address] Glucose Poct Glucometerson 0 03-18-2023 Glucose [Mass/Vol] 220 mg/dL Normal [facility] Comment on above: Result Comment: [facility] [place] Glucose Reference Range is dependent on time and content of last meal. Glucose of more than 200 mg/dL in a nonstressed, ambulatory subject supports the diagnosis of Diabetes Mellitus. PERFORMED BY: [place] [address] PATHOLOGIST PERSONAL CLOTHING LAUNDRY AIDE DHIRAJ CARLOS M.D. Performed By: #### G LULS #### Point of Care testing , Glucose [Mass/Vol] 146 mg/dL Normal [facility] Comment on above: Result Comment: [facility] [place] Glucose Reference Range is dependent on time and content of last meal. Glucose of more than 200 mg/dL in a nonstressed, ambulatory subject supports the diagnosis of Diabetes Mellitus. PERFORMED BY: [place] [address] PATHOLOGIST PERSONAL CLOTHING LAUNDRY AIDE DHIRAJ CARLOS M.D. Performed By: #### G LULS #### Point of Care testing , Glucose [Mass/Vol] 125 mg/dL Normal [facility] Comment on above: Result Comment: [facility] [place] Glucose Reference Range is dependent on time and content of last meal. Glucose of more than 200 mg/dL in a nonstressed, ambulatory subject supports the diagnosis of Diabetes Mellitus. PERFORMED BY: [address] [id number] PATHOLOGIST PERSONAL CLOTHING LAUNDRY AIDE DHIRAJ CARLOS M.D. Performed By: #### G LULS #### Point of Care testing , Commemt1 [facility] Comment on above: Result Comment: Glu2 : WILL NOTIFY DR/RN PERFORMED BY: [address] [id number] PATHOLOGIST PERSONAL CLOTHING LAUNDRY AIDE DHIRAJ CARLOS M.D. Performed By: #### G LULS #### Point of Care testing , Glucose [Mass/Vol] 51 mg/dL Off scale low [facility] Comment on above: Result Comment: [facility] [place] Glucose Reference Range is dependent on time and content of last meal. Glucose of more than 200 mg/dL in a nonstressed, ambulatory subject supports the diagnosis of Diabetes Mellitus. Performed By: #### G JAMEELLS #### Point of Care testing , Prothrombin Time INRon 03-18 INR Coag (PPP) [Relative time] 2.3 {INR} Normal [facility] Comment on above: Result [...] heart valves: 3 - 4.5 PERFORMED BY: [place] [address] [address] [address] PATHOLOGIST PERSONAL CLOTHING LAUNDRY AIDE DHIRAJ CARLOS M.D. Performed By: #### G JAMEELLS #### Point of Care testing , PT Coag (PPP) [Time] 26.6 s High 9.0-12.9 [facility] Comment on above: Performed By: #### G JAMEELLS #### Point of Care testing , Basic Metabolic Panelon 03-07 Anion gap [Moles/Vol] 12.3 mmol/L Normal 6.0-15.0 [facility] Comment on above: Performed By: #### G JAMEELLS #### Point of Care testing , Calcium [Mass/Vol] 9.1 mg/dL Normal 8.6-10.3 [facility] Comment on above: Performed By: #### G JAMEELLS #### Point of Care testing , Chloride [Moles/Vol] 101 mmol/L Normal 98-107 [facility] Comment on above: Performed By: #### G LULS #### Point of Care testing , CO2 [Moles/Vol] 27.4 mmol/L Normal 21.0-31.0 [facility] Comment on above: Performed By: #### G LULS #### Point of Care testing , Creatinine [Mass/Vol] 2.49 mg/dL High 0.70-1.30 [facility] Comment on above: Performed By: #### G LULS #### Point of Care testing , Creatinine Clr Calc Pharmacy 38.36 Normal [facility] Comment on above: Result Comment: PERF ORMED BY: [facility] [address] [place] [address] PATHOLOGIST PERSONAL CLOTHING LAUNDRY AIDE DHIRAJ CARLOS M.D. Performed By: #### G LULS #### Point of Care testing , GFR/1.73 sq M.predicted MDRD (S/P/Bld) [Vol rate/Area] 27.949 mL/min/{1.73_m2} Normal [facility] Comment on above: Performed By: #### G LULS #### Point of Care testing , Glucose [Mass/Vol] 74 mg/dL Normal 70-100 [facility] Comment on above: Result Comment: [facility] [place] Glucose Reference Range is dependent on time and content of last meal. Glucose of more than 200 mg/dL in a nonstressed, ambulatory subject supports the diagnosis of Diabetes Mellitus. ADA recommended reference range Performed By: #### G LULS #### Point of Care testing , Potassium [Moles/Vol] 4.7 mmol/L Normal 3.5-5.1 [facility] Comment on above: Performed By: #### G LULS #### Point of Care testing , Sodium [Moles/Vol] 136 mmol/L Normal 136-145 [facility] Comment on above: Performed By: #### G LULS #### Point of Care testing , Urea nitrogen [Mass/Vol] 55 mg/dL High 7-25 [facility] Comment on above: Performed By: #### G LULS #### Point of Care testing , Glucose Poct Glucometerson 0 03-17-2023 Glucose [Mass/Vol] 208 mg/dL Normal [facility] Comment on above: Result Comment: [facility] [place] Glucose Reference Range is dependent on time and content of last meal. Glucose of more than 200 mg/dL in a nonstressed, ambulatory subject supports the diagnosis of Diabetes Mellitus. PERFORMED BY: [place] [address] PATHOLOGIST PERSONAL CLOTHING LAUNDRY AIDE DHIRAJ CARLOS M.D. Performed By: #### G LULS #### Point of Care testing , Commemt1 Glu2: Cleaned Meter [facility] Comment on above: Result Comment: PERF ORMED BY: [place] [address] PATHOLOGIST PERSONAL CLOTHING LAUNDRY AIDE DHIRAJ CARLOS M.D. Performed By: #### G LULS #### Point of Care testing , Glucose [Mass/Vol] 138 mg/dL Normal [facility] Comment on above: Result Comment: [place] Glucose Reference Range is dependent on time and content of last meal. Glucose of more than 200 mg/dL in a nonstressed, ambulatory subject supports the diagnosis of Diabetes Mellitus. Performed By: #### G LULS #### Point of Care testing , Commemt1 Glu2: Cleaned Meter [facility] Comment on above: Result Comment: PERF ORMED BY: [place] [address] PATHOLOGIST PERSONAL CLOTHING LAUNDRY AIDE DHIRAJ CARLOS M.D. Performed By: #### G LULS #### Point of Care testing , Glucose [Mass/Vol] 266 mg/dL Normal [facility] Comment on above: Result Comment: [place] om Glucose Reference Range is dependent on time and content of last meal. Glucose of more than 200 mg/dL in a nonstressed, ambulatory subject supports the diagnosis of Diabetes Mellitus. Performed By: #### G LULS #### Point of Care testing , Glucose [Mass/Vol] 84 mg/dL Normal [facility] Comment on above: Result Comment: [place] om Glucose Reference Range is dependent on time and content of last meal. Glucose of more than 200 mg/dL in a nonstressed, ambulatory subject supports the diagnosis of Diabetes Mellitus. PERFORMED BY: [place] [address] PATHOLOGIST PERSONAL CLOTHING LAUNDRY AIDE DHIRAJ CARLOS M.D. Performed By: #### B MP #### [address] [place] [address] [place] Prothrombin Time INRon 03-17 INR Coag (PPP) [Relative time] 3.4 {INR} Normal [facility] Comment on above: Result [...] heart valves: 3 - 4.5 PERFORMED BY: [place] [address] PATHOLOGIST PERSONAL CLOTHING LAUNDRY AIDE DHIRAJ CARLOS M.D. Performed By: #### B MP #### [address] PT Coag (PPP) [Time] 38.9 s High 9.0-12.9 [facility] Comment on above: Performed By: #### B MP #### [address] Basic Metabolic Panelon 03-07 Anion gap [Moles/Vol] 14.4 mmol/L Normal 6.0-15.0 [facility] Comment on above: Performed By: #### G BROCK #### Point of Care testing , Calcium [Mass/Vol] 9.2 mg/dL Normal 8.6-10.3 [facility] Comment on above: Performed By: #### G LULS #### Point of Care testing , Chloride [Moles/Vol] 101 mmol/L Normal 98-107 [facility] Comment on above: Performed By: #### G LULS #### Point of Care testing , CO2 [Moles/Vol] 24.9 mmol/L Normal 21.0-31.0 [facility] Comment on above: Performed By: #### G LULS #### Point of Care testing , Creatinine [Mass/Vol] 2.50 mg/dL High 0.70-1.30 [facility] Comment on above: Performed By: #### G LULS #### Point of Care testing , Creatinine Clr Calc Pharmacy 38.43 [facility] Comment on above: Result Comment: PERF ORMED BY: [facility] [address] [place] [address] PATHOLOGIST PERSONAL CLOTHING LAUNDRY AIDE DHIRAJ CARLOS M.D. Performed By: #### G LULS #### Point of Care testing , GFR/1.73 sq M.predicted MDRD (S/P/Bld) [Vol rate/Area] 27.815 mL/min/{1.73_m2} [facility] Comment on above: Performed By: #### G LULS #### Point of Care testing , Glucose [Mass/Vol] 67 mg/dL Low 70-100 [facility] Comment on above: Result Comment: [facility] [place] Glucose Reference Range is dependent on time and content of last meal. Glucose of more than 200 mg/dL in a nonstressed, ambulatory subject supports the diagnosis of Diabetes Mellitus. ADA recommended reference range Performed By: #### G LULS #### Point of Care testing , Potassium [Moles/Vol] 5.3 mmol/L High 3.5-5.1 [facility] Comment on above: Performed By: #### G LULS #### Point of Care testing , Sodium [Moles/Vol] 135 mmol/L Low 136-145 [facility] Comment on above: Performed By: #### G LULS #### Point of Care testing , Urea nitrogen [Mass/Vol] 55 mg/dL High 7-25 [facility] Comment on above: Performed By: #### G LULS #### Point of Care testing , Complete Blood Count Auto Di ffon 03-16-2023 Basophils (Bld) [#/Vol] 0.1 10*3/uL Normal 0.0-0.2 [facility] Comment on above: Result Comment: PERF ORMED BY: [facility] [address] [place] [address] PATHOLOGIST PERSONAL CLOTHING LAUNDRY AIDE DHIRAJ CARLOS M.D. Performed By: #### G LULS #### Point of Care testing , Basophils/100 WBC (Bld) 0.7 % Normal . [facility] Comment on above: Performed By: #### Armin JORGENSENLS #### Point of Care testing , Eosinophils (Bld) [#/Vol] 0.1 10*3/uL Normal 0.0-0.45 [facility] Comment on above: Performed By: #### Armin GUTIÉRREZ #### Point of Care testing , Eosinophils/100 WBC (Bld) 1.3 % Normal . [facility] Comment on above: Performed By: #### Armin GUTIÉRREZ #### Point of Care testing , Erythrocyte distribution width (RBC) [Ratio] 21.2 % High 12.0-14.8 [facility] Comment on above: Performed By: #### Armin GUTIÉRREZ #### Point of Care testing , Hematocrit (Bld) [Volume fraction] 35.8 % Low 38.8-50.0 [facility] Comment on above: Performed By: #### Armin GUTIÉRREZ #### Point of Care testing , Hemoglobin (Bld) [Mass/Vol] 11.3 g/dL Low 13.0-17.0 [facility] Comment on above: Performed By: #### Armin GUTIÉRREZ #### Point of Care testing , Lymphocytes (Bld) [#/Vol] 0.6 10*3/uL Low 1.00-4.8 [facility] Comment on above: Performed By: #### Armin GUTIÉRREZ #### Point of Care testing , Lymphocytes/100 WBC (Bld) 7.4 % Normal . [facility] Comment on above: Performed By: #### Armin GUTIÉRREZ #### Point of Care testing , MCH (RBC) [Entitic mass] 25.1 pg Low 27.5-35.2 [facility] Comment on above: Performed By: #### Armin JORGENSENLS #### Point of Care testing , MCV (RBC) [Entitic vol] 79.7 fL Low 83.5-101 [facility] Comment on above: Performed By: #### Armin GUTIÉRREZ #### Point of Care testing , Mean Corpuscular HGB Conc 31.5 g/dL Low 32.5-35.6 [facility] Comment on above: Performed By: #### G BROCK #### Point of Care testing , Monocytes (Bld) [#/Vol] 0.7 10*3/uL Normal 0.0-0.8 [facility] Comment on above: Performed By: #### Armin GUTIÉRREZ #### Point of Care testing , Monocytes/100 WBC (Bld) 7.8 % Normal . [facility] Comment on above: Performed By: #### G JAMEELLS #### Point of Care testing , Neutrophils (Bld) [#/Vol] 7.2 10*3/uL Normal 1.8-7.7 [facility] Comment on above: Performed By: #### Armin GUTIÉRREZ #### Point of Care testing , Neutrophils/100 WBC (Bld) 82.8 % Normal . [facility] Comment on above: Performed By: #### Armin JORGENSENLS #### Point of Care testing , NRBC% 0.3 /100{WBC} Normal 0-0.5 [facility] Comment on above: Performed By: #### Armin GUTIÉRREZ #### Point of Care testing , Platelet mean volume (Bld) [Entitic vol] 7.6 fL Normal 6.6-10.1 [facility] Comment on above: Performed By: #### Armin GUTIÉRREZ #### Point of Care testing , Platelets (Bld) [#/Vol] 272 10*3/uL Normal 150-450 [facility] Comment on above: Performed By: #### Armin GUTIÉRREZ #### Point of Care testing , RBC (Bld) [#/Vol] 4.49 10*6/uL Normal 3.90-5.60 [facility] Comment on above: Performed By: #### Armin GUTIÉRREZ #### Point of Care testing , WBC (Bld) [#/Vol] 8.7 10*3/uL Normal 4.1-10.5 [facility] Comment on above: Performed By: #### Armin GUTIÉRREZ #### Point of Care testing , Dipstick and Microscopicon 0 03-16-2023 Bacteria,Urine None Seen Normal None Seen [facility] Comment on above: Order Comment: Name Collection Type:: Clean-Voided Midstream Performed By: #### G LULS #### Point of Care testing , Hyaline Casts,Urine 0-8 Normal 0-8 [facility] Comment on above: Order Comment: Name Collection Type:: Clean-Voided Midstream Result Comment: PERF ORMED BY: [place] [address] PATHOLOGIST PERSONAL CLOTHING LAUNDRY AIDE DHIRAJ CARLOS M.D. Performed By: #### G LULS #### Point of Care testing , RBC LM.HPF (Urine sed) [#/Area] 0 /[HPF] Normal 0-4 [facility] Comment on above: Order Comment: Name Collection Type:: Clean-Voided Midstream Performed By: #### G LULS #### Point of Care testing , Squamous Epithelial Cell,Urine None Seen Normal 0-2 [facility] Comment on above: Order Comment: Name Collection Type:: Clean-Voided Midstream Performed By: #### G LULS #### Point of Care testing , WBC LM.HPF (Urine sed) [#/Area] 0 /[HPF] Normal 0-4 [facility] Comment on above: Order Comment: Name Collection Type:: Clean-Voided Midstream Performed By: #### G LULS #### Point of Care testing , ECH echo transthoracicon ECH echo transthoracic [facility] [place] [address] Echocardiogram Signed Patient: Gregg Foster MR#: [id number] : 1955 Acct:[id number] Age/Sex: 67 / M ADM Date: 03/15/23 Loc: Room: [address] [place] [address] Type: ADM IN Attending Dr: Meena Falcon MD Ordering Provider: Meena Falcon MD Date of Service: 03/15/2304/29/1446 ECH/ECH echo transthoracic: CHF Copies to: MD Jef [...] 1151 Signed By: Jef Aviles MD 03/16/23 6530 [facility] Glucose Poct Glucometerson 0 03-16-2023 Glucose [Mass/Vol] 147 mg/dL [facility] Comment on above: Result Comment: [place] Glucose Reference Range is dependent on time and content of last meal. Glucose of more than 200 mg/dL in a nonstressed, ambulatory subject supports the diagnosis of Diabetes Mellitus. PERFORMED BY: [place] [address] PATHOLOGIST PERSONAL CLOTHING LAUNDRY AIDE DHIRAJ CARLOS M.D. Performed By: #### B MP #### [address] Commemt1 Glu2: Cleaned Meter Normal [facility] Comment on above: Result Comment: PERF ORMED BY: [place] [address] PATHOLOGIST PERSONAL CLOTHING LAUNDRY AIDE DHIRAJ CARLOS M.D. Performed By: #### G LULS #### Point of Care testing , Glucose [Mass/Vol] 115 mg/dL Normal [facility] Comment on above: Result Comment: [place] om Glucose Reference Range is dependent on time and content of last meal. Glucose of more than 200 mg/dL in a nonstressed, ambulatory subject supports the diagnosis of Diabetes Mellitus. Performed By: #### G LULS #### Point of Care testing , Glucose [Mass/Vol] 123 mg/dL Normal [facility] Comment on above: Result Comment: [place] Glucose Reference Range is dependent on time and content of last meal. Glucose of more than 200 mg/dL in a nonstressed, ambulatory subject supports the diagnosis of Diabetes Mellitus. PERFORMED BY: [place] [address] PATHOLOGIST PERSONAL CLOTHING LAUNDRY AIDE DHIRAJ CARLOS M.D. Performed By: #### G LULS #### Point of Care testing , Glucose [Mass/Vol] 81 mg/dL Normal [facility] Comment on above: Result Comment: [place] om Glucose Reference Range is dependent on time and content of last meal. Glucose of more than 200 mg/dL in a nonstressed, ambulatory subject supports the diagnosis of Diabetes Mellitus. PERFORMED BY: [place] [address] PATHOLOGIST PERSONAL CLOTHING LAUNDRY AIDE DHIRAJ CARLOS M.D. Performed By: #### G LULS #### Point of Care testing , Glucose [Mass/Vol] 76 mg/dL Normal [facility] Comment on above: Result Comment: [place] Glucose Reference Range is dependent on time and content of last meal. Glucose of more than 200 mg/dL in a nonstressed, ambulatory subject supports the diagnosis of Diabetes Mellitus. PERFORMED BY: [facility] [address] [place] [address] PATHOLOGIST PERSONAL CLOTHING LAUNDRY AIDE DHIRAJ CARLOS M.D. Performed By: #### G LULS #### Point of Care testing , Commemt1 Normal [facility] Comment on above: Result Comment: Glu2 : WILL NOTIFY DR/RN PERFORMED BY: [place] [address] PATHOLOGIST PERSONAL CLOTHING LAUNDRY AIDE DHIRAJ CARLOS M.D. Performed By: #### G LULS #### Point of Care testing , Glucose [Mass/Vol] 51 mg/dL Off scale low [facility] Comment on above: Result Comment: [facility] [place] Glucose Reference Range is dependent on time and content of last meal. Glucose of more than 200 mg/dL in a nonstressed, ambulatory subject supports the diagnosis of Diabetes Mellitus. Performed By: #### G LULS #### Point of Care testing , Magnesiumon 03-16-2023 Magnesium [Mass/Vol] 1.9 mg/dL Normal 1.9-2.7 [facility] Comment on above: Result Comment: PERF ORMED BY: [place] [address] PATHOLOGIST PERSONAL CLOTHING LAUNDRY AIDE DHIRAJ CARLOS M.D. Performed By: #### M G, K #### [address] MicroAlb Creat Ratio,Uon Albumin DL <= 20 mg/L (U) [Mass/Vol] 11.7 mg/dL High 0.0-1.8 [facility] Comment on above: Order Comment: Comme nt from ua Performed By: #### G LULS #### Point of Care testing , Creatinine, Urine (Random) 70.0 mg/dL High 14.0-26.0 [facility] Comment on above: Order Comment: Comme nt from ua Performed By: #### G LULS #### Point of Care testing , Microalbumin/Creatini ne Ratio 167.0 mg/g High 0.0-30.0 [facility] Comment on above: Order Comment: Comme nt from ua Result Comment: 30-3 00 mg/g indicates an increased risk for diabetic nephropathy. Greater than 300 mg/g is consistent with clinical nephropathy. (Am. J. Kidney Disease 1995, 25:107) PERFORMED BY: [place] [address] PATHOLOGIST PERSONAL CLOTHING LAUNDRY AIDE DHIRAJ CARLOS M.D. Performed By: #### G LULS #### Point of Care testing , Potassiumon 03-16-2023 Potassium [Moles/Vol] 5.2 mmol/L High 3.5-5.1 [facility] Comment on above: Performed By: #### M G, K #### [address] Prothrombin Time INRon 03-16 INR Coag (PPP) [Relative time] 4.5 {INR} Normal [facility] Comment on above: Result [...] heart valves: 3 - 4.5 PERFORMED BY: [place] [address] PATHOLOGIST PERSONAL CLOTHING LAUNDRY AIDE DHIRAJ CARLOS M.D. Performed By: #### G LULS #### Point of Care testing , PT Coag (PPP) [Time] 51.7 s High 9.0-12.9 [facility] Comment on above: Performed By: #### G LULS #### Point of Care testing , US renal BIon 03-16-2023 US renal BI [facility] [address] Ultrasound Report Signed Patient: Gregg Foster MR#: [id number] : 1955 Acct:[id number] Age/Sex: 67 / M ADM Date: 03/15/23 Loc: Room: [address] [place] [address] Type: ADM IN Attending Dr: Meena Falcon [...] Fabio Sellers M.D.03/16/2023 5:02 PM Dictation Location: [place] [address] Tech: Isis Mcgowan Transcribed By: MARGOT 03/16/231701 Dictated By: Fabio Sellers DO 03/16/231700 Signed By: 03/16/231701 Normal [facility] Urinalysison 03-16-2023 Appearance (U) Clear Normal Clear [facility] Comment on above: Order Comment: Name Collection Type:: Clean-Voided Midstream Performed By: #### G LULS #### Point of Care testing , Bilirubin,Urine Negative Normal Negative [facility] Comment on above: Order Comment: Name Collection Type:: Clean-Voided Midstream Performed By: #### G LULS #### Point of Care testing , Color (U) Yellow Normal Yellow [facility] Comment on above: Order Comment: Name Collection Type:: Clean-Voided Midstream Performed By: #### G LULS #### Point of Care testing , Glucose Ql (U) Normal Normal Normal [facility] Comment on above: Order Comment: Name Collection Type:: Clean-Voided Midstream Performed By: #### G LULS #### Point of Care testing , Ketones Ql (U) Negative Normal Negative [facility] Comment on above: Order Comment: Name Collection Type:: Clean-Voided Midstream Performed By: #### G LULS #### Point of Care testing , Leukocyte esterase Test strip Ql (U) Negative Normal Negative [facility] Comment on above: Order Comment: Name Collection Type:: Clean-Voided Midstream Performed By: #### G LULS #### Point of Care testing , Nitrite,Urine Negative Normal Negative [facility] Comment on above: Order Comment: Name Collection Type:: Clean-Voided Midstream Performed By: #### G LULS #### Point of Care testing , Occult Blood,Urine Negative Normal Negative [facility] Comment on above: Order Comment: Name Collection Type:: Clean-Voided Midstream Result Comment: PERF ORMED BY: [facility] [address] [place] [address] PATHOLOGIST PERSONAL CLOTHING LAUNDRY AIDE DHIRAJ CARLOS M.D. Performed By: #### G LULS #### Point of Care testing , pH (U) 5.5 [pH] Normal 5.0-9.0 [facility] Comment on above: Order Comment: Name Collection Type:: Clean-Voided Midstream Performed By: #### G LULS #### Point of Care testing , Protein,Urine Trace High Negative [facility] Comment on above: Order Comment: Name Collection Type:: Clean-Voided Midstream Performed By: #### G LULS #### Point of Care testing , Specificy [place],Urine 1.012 Normal 1.001-1.030 [facility] Comment on above: Order Comment: Name Collection Type:: Clean-Voided Midstream Performed By: #### G LULS #### Point of Care testing , Urobilinogen,Urine Normal Normal Normal [facility] Comment on above: Order Comment: Name Collection Type:: Clean-Voided Midstream Performed By: #### G LULS #### Point of Care testing , B-Type Natriuretic Peptideon 03-15-2023 Natriuretic peptide B (Bld) [Mass/Vol] 1381.0 pg/mL High 5-100 [facility] Comment on above: Result Comment: PERF ORMED BY: [place] [address] PATHOLOGIST PERSONAL CLOTHING LAUNDRY AIDE DHIRAJ CARLOS M.D. Performed By: #### [place] PANEL UPP., BIOFIRECOVNOTDE #### [facility] [address] [place] [address] Performed By: #### B MP #### [address] Basic Metabolic Panelon Anion gap [Moles/Vol] 15.1 mmol/L High 6.0-15.0 [facility] Comment on above: Performed By: #### [place] PANEL UPP., BIOFIRECOVNOTDE #### [facility] [address] [place] [address] Performed By: #### B MP #### [address] Calcium [Mass/Vol] 9.2 mg/dL Normal 8.6-10.3 [facility] Comment on above: Performed By: #### [place] PANEL UPP., BIOFIRECOVNOTDE #### [facility] [address] [place] [address] Performed By: #### B MP #### [address] Chloride [Moles/Vol] 101 mmol/L Normal 98-107 [facility] Comment on above: Performed By: #### [place] PANEL UPP., BIOFIRECOVNOTDE #### [facility] [address] [place] [address] Performed By: #### B MP #### [address] CO2 [Moles/Vol] 23.5 mmol/L Normal 21.0-31.0 [facility] Comment on above: Performed By: #### [place] PANEL UPP., BIOFIRECOVNOTDE #### [facility] [address] [place] [address] Performed By: #### B MP #### [address] Creatinine [Mass/Vol] 2.44 mg/dL High 0.70-1.30 [facility] Comment on above: Performed By: #### [place] PANEL UPP., BIOFIRECOVNOTDE #### [address] Performed By: #### B MP #### [address] Creatinine Clr Calc Pharmacy 40.21 [facility] Comment on above: Result Comment: PERF ORMED BY: [place] [address] PATHOLOGIST PERSONAL CLOTHING LAUNDRY AIDE DHIRAJ CARLOS M.D. Performed By: #### [place] PANEL UPP., BIOFIRECOVNOTDE #### [address] Performed By: #### B MP #### [address] GFR/1.73 sq M.predicted MDRD (S/P/Bld) [Vol rate/Area] 28.638 mL/min/{1.73_m2} [facility] Comment on above: Performed By: #### [place] PANEL UPP., BIOFIRECOVNOTDE #### [address] Performed By: #### B MP #### [address] Glucose [Mass/Vol] 64 mg/dL Low 70-100 [facility] Comment on above: Result Comment: [place] Glucose Reference Range is dependent on time and content of last meal. Glucose of more than 200 mg/dL in a nonstressed, ambulatory subject supports the diagnosis of Diabetes Mellitus. ADA recommended reference range Performed By: #### [place] PANEL UPP., BIOFIRECOVNOTDE #### [facility] [address] [place] [address] Performed By: #### B MP #### [address] Potassium [Moles/Vol] 5.6 mmol/L High 3.5-5.1 [facility] Comment on above: Performed By: #### [place] PANEL UPP., BIOFIRECOVNOTDE #### [address] Performed By: #### B MP #### [address] Sodium [Moles/Vol] 134 mmol/L Low 136-145 [facility] Comment on above: Performed By: #### [place] PANEL UPP., BIOFIRECOVNOTDE #### [address] Performed By: #### B MP #### [address] Urea nitrogen [Mass/Vol] 54 mg/dL High 7-25 [facility] Comment on above: Performed By: #### [place] PANEL UPP., BIOFIRECOVNOTDE #### [address] Performed By: #### B MP #### [address] BioFire Not Detectedon 03-15 BioFire Not Detected Not detected Normal Not Detecte [facility] Comment on above: Result Comment: This is a duplicate RP2.1 COVID (PCR) result to be used for statistical tracking purpose only. PERFORMED BY: [place] [address] PATHOLOGIST PERSONAL CLOTHING LAUNDRY AIDE DHIRAJ CARLOS M.D. Performed By: #### [place] PANEL UPP., BIOFIRECOVNOTDE #### [address] Performed By: #### B IOFIRECOVNOTDE, RESP PANEL UPP. #### [address] Complete Blood Count Auto Di ffon 03-15-2023 Basophils (Bld) [#/Vol] 0.1 10*3/uL Normal 0.0-0.2 [facility] Comment on above: Result Comment: PERF ORMED BY: [place] [address] PATHOLOGIST PERSONAL CLOTHING LAUNDRY AIDE DHIRAJ CARLOS M.D. Performed By: #### C BC, HEPATIC, PTT, BMP, PT, CK, HS TROP, BNP #### [address] Performed By: #### B MP #### [address] Basophils/100 WBC (Bld) 1.0 % Normal . [facility] Comment on above: Performed By: #### C BC, HEPATIC, PTT, BMP, PT, CK, HS TROP, BNP #### [address] Performed By: #### B MP #### [address] Eosinophils (Bld) [#/Vol] 0.1 10*3/uL Normal 0.0-0.45 [facility] Comment on above: Performed By: #### C BC, HEPATIC, PTT, BMP, PT, CK, HS TROP, BNP #### [address] Performed By: #### B MP #### [address] Eosinophils/100 WBC (Bld) 1.3 % Normal . [facility] Comment on above: Performed By: #### C BC, HEPATIC, PTT, BMP, PT, CK, HS TROP, BNP #### [address] Performed By: #### B MP #### [address] Erythrocyte distribution width (RBC) [Ratio] 20.9 % High 12.0-14.8 [facility] Comment on above: Performed By: #### C BC, HEPATIC, PTT, BMP, PT, CK, HS TROP, BNP #### [address] Performed By: #### B MP #### [address] Hematocrit (Bld) [Volume fraction] 37.4 % Low 38.8-50.0 [facility] Comment on above: Performed By: #### C BC, HEPATIC, PTT, BMP, PT, CK, HS TROP, BNP #### [address] Performed By: #### B MP #### [address] Hemoglobin (Bld) [Mass/Vol] 11.6 g/dL Low 13.0-17.0 [facility] Comment on above: Performed By: #### C BC, HEPATIC, PTT, BMP, PT, CK, HS TROP, BNP #### [address] Performed By: #### B MP #### [address] Lymphocytes (Bld) [#/Vol] 0.9 10*3/uL Low 1.00-4.8 [facility] Comment on above: Performed By: #### C BC, HEPATIC, PTT, BMP, PT, CK, HS TROP, BNP #### [address] Performed By: #### B MP #### [address] Lymphocytes/100 WBC (Bld) 10.1 % Normal . [facility] Comment on above: Performed By: #### C BC, HEPATIC, PTT, BMP, PT, CK, HS TROP, BNP #### [address] [place] [address] [place] Performed By: #### B MP #### [address] MCH (RBC) [Entitic mass] 24.9 pg Low 27.5-35.2 [facility] Comment on above: Performed By: #### C BC, HEPATIC, PTT, BMP, PT, CK, HS TROP, BNP #### [address] Performed By: #### B MP #### [address] MCV (RBC) [Entitic vol] 80.4 fL Low 83.5-101 [facility] Comment on above: Performed By: #### C BC, HEPATIC, PTT, BMP, PT, CK, HS TROP, BNP #### [address] Performed By: #### B MP #### [address] Mean Corpuscular HGB Conc 31.0 g/dL Low 32.5-35.6 [facility] Comment on above: Performed By: #### C BC, HEPATIC, PTT, BMP, PT, CK, HS TROP, BNP #### [address] Performed By: #### B MP #### [address] Monocytes (Bld) [#/Vol] 0.7 10*3/uL Normal 0.0-0.8 [facility] Comment on above: Performed By: #### C BC, HEPATIC, PTT, BMP, PT, CK, HS TROP, BNP #### [address] Performed By: #### B MP #### [address] Monocytes/100 WBC (Bld) 15.80 % Normal 0.00-20.00 [facility] [facility] Comment on above: Performed By: #### C BC, HEPATIC, PTT, BMP, PT, CK, HS TROP, BNP #### [address] Performed By: #### B MP #### [address] Monocytes/100 WBC (Bld) 8.4 % Normal . [facility] Comment on above: Performed By: #### C BC, HEPATIC, PTT, BMP, PT, CK, HS TROP, BNP #### [address] Performed By: #### B MP #### [address] Neutrophils (Bld) [#/Vol] 6.9 10*3/uL Normal 1.8-7.7 [facility] Comment on above: Performed By: #### C BC, HEPATIC, PTT, BMP, PT, CK, HS TROP, BNP #### [address] Performed By: #### B MP #### [address] Neutrophils/100 WBC (Bld) 79.2 % Normal . [facility] Comment on above: Performed By: #### C BC, HEPATIC, PTT, BMP, PT, CK, HS TROP, BNP #### [address] Performed By: #### B MP #### [address] NRBC% 0.4 /100{WBC} Normal 0-0.5 [facility] Comment on above: Performed By: #### C BC, HEPATIC, PTT, BMP, PT, CK, HS TROP, BNP #### [address] Performed By: #### B MP #### [address] Platelet mean volume (Bld) [Entitic vol] 7.5 fL Normal 6.6-10.1 [facility] Comment on above: Performed By: #### C BC, HEPATIC, PTT, BMP, PT, CK, HS TROP, BNP #### [facility] [address] [place] [address] Performed By: #### B MP #### [address] Platelets (Bld) [#/Vol] 290 10*3/uL Normal 150-450 [facility] Comment on above: Performed By: #### C BC, HEPATIC, PTT, BMP, PT, CK, HS TROP, BNP #### [address] Performed By: #### B MP #### [address] RBC (Bld) [#/Vol] 4.66 10*6/uL Normal 3.90-5.60 [facility] Comment on above: Performed By: #### C BC, HEPATIC, PTT, BMP, PT, CK, HS TROP, BNP #### [address] Performed By: #### B MP #### [address] WBC (Bld) [#/Vol] 8.7 10*3/uL Normal 4.1-10.5 [facility] Comment on above: Performed By: #### C BC, HEPATIC, PTT, BMP, PT, CK, HS TROP, BNP #### [address] Performed By: #### B MP #### [address] Creatine Kinaseon 03-15-2023 CK [Catalytic activity/Vol] 252 U/L High 30-223 [facility] Comment on above: Performed By: #### R [place] PANEL UPP., BIOFIRECOVNOTDE #### [address] Performed By: #### B MP #### [address] [address] [facility] ECG 12 lead ECGon 03-15-2023 ECG 12 lead ECG [facility] [place] [address] Electrocardiograph Report Signed Patient: Gregg Foster MR#: [id number] : 1955 Acct:[id number] Age/Sex: 67 / M ADM Date: 03/15/23 Loc: Room: [address] [place] [address] Type: ADM IN Attending Dr: Meena Falcon [...] ECGs available Confirmed by Corey Londono DO ([id number]) on 03/15/2023 3:10:33 PM Referred By: Electronically Signed By:Corey Londono DO Transcribed By: MUS Signed By Corey Londono DO 3 1510 [facility] ECG 12 lead ECG [facility] Main [place] [id number] Electrocardiograph Report Signed Patient: Gregg Foster MR#: [id number] : 1955 Acct:[id number] Age/Sex: 67 / M ADM Date: 03/15/23 Loc: Room: [address] [place] [address] Type: ADM IN Attending Dr: Meena Falcon [...] ECGs available Confirmed by Corey Londono DO ([id number]) on 03/15/2023 3:10:33 PM Referred By: Electronically Signed By:Corey Londono DO Transcribed By: MUS Signed By Corey Londono DO 3 1510 Normal [facility] Glucose Poct Glucometerson 0 03-15-2023 Glucose [Mass/Vol] 131 mg/dL Normal [facility] Comment on above: Result Comment: [place] Glucose Reference Range is dependent on time and content of last meal. Glucose of more than 200 mg/dL in a nonstressed, ambulatory subject supports the diagnosis of Diabetes Mellitus. PERFORMED BY: [place] [address] PATHOLOGIST PERSONAL CLOTHING LAUNDRY AIDE DHIRAJ CARLOS M.D. Performed By: #### G LULS #### Point of Care testing , Hepatic Panelon 03-15-2023 Albumin [Mass/Vol] 3.8 g/dL Normal 3.5-5.7 [facility] Comment on above: Performed By: #### R [place] PANEL UPP., BIOFIRECOVNOTDE #### [address] Performed By: #### B MP #### [address] Albumin/Globulin [Mass ratio] 1.4 {ratio} Normal [facility] Comment on above: Performed By: #### R [place] PANEL UPP., BIOFIRECOVNOTDE #### [facility] [address] [place] [address] Performed By: #### B MP #### [address] ALP [Catalytic activity/Vol] 153 U/L High 34-104 [facility] Comment on above: Performed By: #### R [place] PANEL UPP., BIOFIRECOVNOTDE #### [address] [address] [place] Performed By: #### B MP #### [address] ALT [Catalytic activity/Vol] 18 U/L Normal 7-52 [facility] Comment on above: Performed By: #### R [place] PANEL UPP., BIOFIRECOVNOTDE #### [address] Performed By: #### B MP #### [address] AST [Catalytic activity/Vol] 22 U/L Normal 13-39 [facility] Comment on above: Performed By: #### R [place] PANEL UPP., BIOFIRECOVNOTDE #### [address] Performed By: #### B MP #### [address] Bilirubin [Mass/Vol] 1.5 mg/dL High 0.3-1.0 [facility] Comment on above: Result Comment: Samp les from patients who have taken Naproxen have shown spurious elevation in Total Bilirubin levels. A metabolite of Naproxen, O-desmethylnaproxen, has been shown to interfere with the Jendrassik-Grof method for measuring Total Bilirubin. Performed By: #### R [place] PANEL UPP., BIOFIRECOVNOTDE #### [address] Performed By: #### B MP #### [address] Bilirubin,Indirect 1.0 mg/dL Normal [facility] Comment on above: Performed By: #### R [place] PANEL UPP., BIOFIRECOVNOTDE #### [address] Performed By: #### B MP #### [address] Bilirubin.indirect [Mass/Vol] 0.50 mg/dL High 0.03-0.18 [facility] Comment on above: Performed By: #### R [place] PANEL UPP., BIOFIRECOVNOTDE #### [facility] [address] [place] [address] Performed By: #### B MP #### [address] Globulin (S) [Mass/Vol] 2.7 g/dL Normal [facility] Comment on above: Performed By: #### R [place] PANEL UPP., BIOFIRECOVNOTDE #### [address] Performed By: #### B MP #### [address] Protein [Mass/Vol] 6.5 g/dL Normal 6.4-8.9 [facility] Comment on above: Performed By: #### R [place] PANEL UPP., BIOFIRECOVNOTDE #### [address] Performed By: #### B MP #### [address] Partial Thromboplastin Timeo n 03-15-2023 aPTT Coag (Bld) [Time] 42.7 s High 25.1-36.5 [facility] Comment on above: Result Comment: PERF ORMED BY: [place] [address] PATHOLOGIST PERSONAL CLOTHING LAUNDRY AIDE DHIRAJ CARLOS M.D. Performed By: #### C BC, HEPATIC, PTT, BMP, PT, CK, HS TROP, BNP #### [address] Performed By: #### B MP #### [address] Prothrombin Time INRon 03-15 INR Coag (PPP) [Relative time] 4.3 {INR} Normal [facility] Comment on above: Result [...] BMP, PT, CK, HS TROP, BNP #### [facility] [address] Performed By: #### G JAMEELLS #### Point of Care testing , PT Coag (PPP) [Time] 49.7 s High 9.0-12.9 [facility] Comment on above: Performed By: #### C BC, HEPATIC, PTT, BMP, PT, CK, HS TROP, BNP #### [facility] [address] Performed By: #### G BROCK #### [...] A H3 Blank Space ------ PERFORMED BY: [place] [address] PATHOLOGIST PERSONAL CLOTHING LAUNDRY AIDE DHIRAJ CARLOS M.D. [facility] Comment on above: Performed By: #### R [place] PANEL UPP., BIOFIRECOVNOTDE #### [address] Performed By: #### B IOFIRECOVNOTDE, RESP PANEL UPP. #### [address] Troponin I High Sensitivityo n 03-15-2023 Troponin I High Sensitivity 35.7 pg/mL High 0.0-20.0 [facility] Comment on above: Result Comment: PERF ORMED BY: [place] [address] PATHOLOGIST PERSONAL CLOTHING LAUNDRY AIDE DHIRAJ CARLOS M.D. Performed By: #### R [place] PANEL UPP., BIOFIRECOVNOTDE #### [address] Performed By: #### B MP #### [address] XR chest 1V portableon 03-15 XR chest 1V portable [facility] [place] [address] XRay Report Signed Patient: Gregg Foster MR#: [id number] : 1955 Acct:[id number] Age/Sex: 67 / M ADM Date: 03/15/23 [...] Srinivasan Jr., D.O.03/15/2023 9:54 AM Dictation Location: RADIO--12 Transcribed By: MARGOT 03/15/2354 Dictated By: Antwon Srinivasan Jr, DO 03/15/23952 Signed By: 03/15/23953 [facility] XR chest 1V portable [facility] [place] [address] XRay Report Signed Patient: Gregg oFster MR#: [id number] : 1955 Acct:[id number] Age/Sex: 67 / M ADM Date: 03/15/23 Loc: Room: [address] [place] [address] Type: ADM IN Attending Dr: Meena Falcon [...] Srinivasan Jr., D.O.03/15/2023 9:54 AM Dictation Location: [facility]--12 Transcribed By: MARGOT 03/15/2354 Dictated By: Antwon Srinivasan Jr, DO 03/15/23952 Signed By: 03/15/2354 [facility] Basic Metabolic Profon 03-14 Anion gap [Moles/Vol] 13 mmol/L Normal 9-17 [facility] Comment on above: Performed By: #### G LYHGB, LIPR #### [email or web address] [address] [place] [address] Pantograph Setter: Oh Jean MD #### ZFAST, CP #### [facility] [address] [place], [place] [phone] Pantograph Setter: Sy Rojas MD BUN/CRE Ratio 21 High 9-20 [facility] Comment on above: Performed By: #### G LYHGB, LIPR #### [address] [id number] Pantograph Setter: Oh Jean MD #### ZFAST, CP #### [facility] [address] [place], [place] [phone] Pantograph Setter: Sy Rojas MD Calcium [Mass/Vol] 9.3 mg/dL Normal 8.6-10.4 [facility] Comment on above: Performed By: #### G LYHGB, LIPR #### [address] [id number] Pantograph Setter: Oh Jean MD #### ZFAST, CP #### [facility] [address] [place], [place] 043[address] Pantograph Setter: Sy Rojas MD Chloride [Moles/Vol] 97 mmol/L Low 98-107 [facility] Comment on above: Performed By: #### G LYHGB, LIPR #### [address] [address] Pantograph Setter: Oh Jean MD #### ZFAST, CP #### [facility] [address] [place], [place] [phone] Pantograph Setter: Sy Rojas MD CO2 [Moles/Vol] 21 mmol/L Normal 20-31 [facility] Comment on above: Performed By: #### G LYHGB, LIPR #### [address] [address] Pantograph Setter: Oh Jean MD #### ZFAST, CP #### [facility] [address] [place], [place] 6000390 Pantograph Setter: Sy Rojas MD Creatinine [Mass/Vol] 2.3 mg/dL High 0.7-1.2 [facility] Comment on above: Performed By: #### G LYHGB, LIPR #### [address] [phone] Pantograph Setter: Oh Jean MD #### EVER, CP #### [facility] [address] [place], [place] [phone] Pantograph Setter: Sy Rojas MD GFR/1.73 sq M.predicted among non-blacks MDRD (S/P/Bld) [Vol rate/Area] 31 mL/min/{1.73_m2} Low >60 [facility] Comment on above: Result Comment: These results [...] Performed By: #### G LYHGB, LIPR #### [address] [address] Pantograph Setter: Oh Jean MD #### EVER CP #### [facility] [address] [place], [place] [phone] Pantograph Setter: Sy Rojas MD Glucose [Mass/Vol] 91 mg/dL Normal 70-99 [facility] Comment on above: Performed By: #### G LYHGB, LIPR #### [address] [address] Pantograph Setter: Oh Jean MD #### EVER, CP #### [facility] [address] [place], [place] [phone] Pantograph Setter: Sy Rojas MD Potassium [Moles/Vol] 5.4 mmol/L High 3.7-5.3 [facility] Comment on above: Performed By: #### G LYHGB, LIPR #### [address] [id number] Pantograph Setter: Oh Jean MD #### ZFAST, CP #### [facility] [address] [place], [place] [phone] Pantograph Setter: Sy Rojas MD Sodium [Moles/Vol] 131 mmol/L Low 135-144 [facility] Comment on above: Performed By: #### G LYHGB, LIPR #### [address] [phone] Pantograph Setter: Oh Jean MD #### EVER, CP #### [facility] [address] [place], [place] [phone] Pantograph Setter: Sy Rojas MD Urea nitrogen [Mass/Vol] 49 mg/dL High 8-23 [facility] Comment on above: Performed By: #### G LYHGB, LIPR #### [address] [phone] Pantograph Setter: Oh Jean MD #### BRYCEAST, CP #### [facility] [address] [place], [place] [phone] Pantograph Setter: Sy Rojas MD Basic Metabolic Profon 03-07 Anion gap [Moles/Vol] 15 mmol/L Normal 9-17 [facility] Comment on above: Performed By: #### G LYHGB, LIPR #### [address] [phone] Pantograph Setter: Oh Jean MD #### BRYCEAST, CP #### [facility] [address] [place], [place] [phone] Pantograph Setter: Sy Rojas MD BUN/CRE Ratio 27 High 9-20 [facility] Comment on above: Performed By: #### G LYHGB, LIPR #### [facility] [address] [place] [address] Pantograph Setter: Oh Jean MD #### EVER, CP #### [facility] [address] [place], [place] [phone] Pantograph Setter: Sy Rojas MD Calcium [Mass/Vol] 9.6 mg/dL Normal 8.6-10.4 [facility] Comment on above: Performed By: #### G LYHGB, LIPR #### [address] [phone] Pantograph Setter: Oh Jean MD #### VEER, CP #### [facility] [address] [place], [place] [phone] Pantograph Setter: Sy Rojas MD Chloride [Moles/Vol] 99 mmol/L Normal 98-107 [facility] Comment on above: Performed By: #### G LYHGB, LIPR #### [facility] [address] [place] [address] Pantograph Setter: Oh Jean MD #### EVER, CP #### [facility] [address] [place] [address] Pantograph Setter: Sy Rojas MD CO2 [Moles/Vol] 22 mmol/L Normal 20-31 [facility] Comment on above: Performed By: #### G LYHGB, LIPR #### [address] [address] Pantograph Setter: Oh Jean MD #### ZFAST, CP #### [facility] [address] [place], [place] [phone] Pantograph Setter: Sy Rojas MD Creatinine [Mass/Vol] 2.1 mg/dL High 0.7-1.2 [facility] Comment on above: Performed By: #### Armin ROJAS LIPR #### [place] [address] [place] [address] Pantograph Setter: Oh Jean MD #### EVER, CP #### [facility] [address] [place], [place] [phone] Pantograph Setter: Sy Rojas MD GFR/1.73 sq M.predicted among non-blacks MDRD (S/P/Bld) [Vol rate/Area] 34 mL/min/{1.73_m2} Low >60 [facility] Comment on above: Result Comment: These results [...] affects renal tubular secretion. Performed By: #### Armin ROJAS LIPR #### [address] [address] Pantograph Setter: Oh Jean MD #### EVER, CP #### [facility] [address] [place], [place] [phone] Pantograph Setter: Sy Rojas MD Glucose [Mass/Vol] 104 mg/dL High 70-99 [facility] Comment on above: Performed By: #### Armin ROJAS, LIPR #### [facility] [address] [place] [address] Pantograph Setter: Oh Jean MD #### BRYCEAST, CP #### [facility] [address] [place], [place] [phone] Pantograph Setter: Sy Rojas MD Potassium [Moles/Vol] 5.2 mmol/L Normal 3.7-5.3 [facility] Comment on above: Performed By: #### G LYHGB, LIPR #### [facility] [employer] [address] [place] [address] Pantograph Setter: Oh Jean MD #### ZFAST, CP #### [facility] [address] [place], [place] [phone] Pantograph Setter: Sy Rojas MD Sodium [Moles/Vol] 136 mmol/L Normal 135-144 [facility] Comment on above: Performed By: #### G LYHGB, LIPR #### [facility] [employer] [address] [place] [address] Pantograph Setter: Oh Jean MD #### ZFAST, CP #### [facility] [address] [place], [place] [phone] Pantograph Setter: Sy Rojas MD Urea nitrogen [Mass/Vol] 57 mg/dL High 03-29 [facility] Comment on above: Performed By: #### G LYHGB, LIPR #### [place] [address] [place], [place] 7412108 Pantograph Setter: Oh Jean MD #### ZFAST, CP #### [facility] [address] [place], [place] [phone] Pantograph Setter: Sy Rojas MD XR CHEST (2 VW)on [...] Vida Tinajero MD 02/21/23 Final result Normal [facility] Cardiomegaly with vascular congestion and possible small left pleural effusion. [facility] RIS CONSOLIDATED EXAM: XR CHEST (2 VW ) HISTORY: Reason for exam:->cad COMPARISON: 02/22/2022. TECHNIQUE: Two views. FINDINGS: Pacemaker is again seen. Cardiomegaly persists. Mild vascular congestion is noted. There may be a small left pleural effusion as evidenced by blunting of the left costophrenic angle. [facility] RIS CONSOLIDATED Vida Tinajero MD - 02/21/2023 EXAM: XR CHEST (2 VW) HISTORY: Reason for exam:->cad COMPARISON: 02/22/2022. TECHNIQUE: Two views. FINDINGS: Pacemaker is again seen. Cardiomegaly persists. Mild vascular congestion is noted. There may be a small left pleural effusion as evidenced by blunting of the left costophrenic angle. IMPRESSION: Cardiomegaly with vascular congestion and possible small left pleural effusion. [facility] XR CHEST (2 VW)Ordered By: Vida Tinajero on 02-21-2023 [facility] CBC with Diffon 02-20-2023 Morphology Jarrod (Bld) [Interp] MODERATE Normal [facility] Comment on above: Result Comment: ANIS OCYTOSIS SLIGHT POIKILOCYTOSIS FEW OVALOCYTES FEW ACANTHOCYTES Performed By: #### Z FAST, CDP, CP, MG, TSHX #### [facility] [address] [place] [address] Pantograph Setter: Sy Rojas MD #### [email or web address] #### [facility] [employer] [address] [place] [address] Pantograph Setter: Oh Jean MD Abs. Basophil 0.10 k/uL Normal 0.0-0.2 [facility] Comment on above: Performed By: #### Anna FAST, CDP, CP, MG, TSHX #### [facility] [address] [place] [address] Pantograph Setter: Sy Rojas MD #### GREGORIO25 #### [facility] [employer] [address] [place] [address] [phone] Pantograph Setter: Oh Jean MD Abs.Neutrophil (Seg) 6.40 k/uL Normal 2.1-6.5 [facility] Comment on above: Performed By: #### Z FAST, CDP, CP, MG, TSHX #### [facility] [address] [place] [phone] Pantograph Setter: Sy Rojas MD #### LIPBeni, VD25 #### [address] [phone] Pantograph Setter: Oh Jean MD Basophils/100 WBC (Bld) 1 % Normal 0-2 [facility] Comment on above: Performed By: #### Z FAST, CDP, CP, MG, TSHX #### [facility] [address] [place] [phone] Pantograph Setter: Sy Rojas MD #### LIPBeni, VD25 #### [place] [address] Pantograph Setter: Oh Jean MD Eosinophils (Bld) [#/Vol] 0.20 10*3/uL Normal 0.0-0.4 [facility] Comment on above: Performed By: #### Z FAST, CDP, CP, MG, TSHX #### [facility] [address] [place] [phone] Pantograph Setter: Sy Rojas MD #### LIPR, VD25 #### [address] [phone] Pantograph Setter: Oh Jean MD Eosinophils/100 WBC (Bld) 2 % Normal 0-5 [facility] Comment on above: Performed By: #### Z FAST, CDP, CP, MG, TSHX #### [facility] [address] [place] [phone] Pantograph Setter: Sy Rojas MD #### LIPR, VD25 #### [place] [address] Pantograph Setter: Oh Jean MD Erythrocyte distribution width (RBC) [Ratio] 20.6 % High 12.1-15.2 [facility] Comment on above: Performed By: #### Z FAST, CDP, CP, MG, TSHX #### [facility] [address] [place] [address] Pantograph Setter: Sy Rojas MD #### LIPR, VD25 #### [place] [address] Pantograph Setter: Oh Jean MD Hematocrit (Bld) [Volume fraction] 39.7 % Low 41-53 [facility] Comment on above: Performed By: #### Z FAST, CDP, CP, MG, TSHX #### [facility] [address] [place] [address] Pantograph Setter: Sy Rojas MD #### LIPR, VD25 #### [place] [address] Pantograph Setter: Oh Jean MD Hemoglobin (Bld) [Mass/Vol] 12.4 g/dL Low 13.5-17.5 [facility] Comment on above: Performed By: #### Z FAST, CDP, CP, MG, TSHX #### [facility] [address] [place] [phone] Pantograph Setter: Sy Rojas MD #### LIPR, VD25 #### [place] [address] Pantograph Setter: Oh Jean MD Lymphocytes (Bld) [#/Vol] 1.10 10*3/uL Normal 1.0-4.8 [facility] Comment on above: Performed By: #### Z FAST, CDP, CP, MG, TSHX #### [facility] [address] [place] [address] Pantograph Setter: Sy Rojas MD #### GAMALIEL VD25 #### [place] [address] [place] [address] Pantograph Setter: Oh Jean MD Lymphocytes/100 WBC (Bld) 13 % Normal 13-44 [facility] Comment on above: Performed By: #### Z FAST, CDP, CP, MG, TSHX #### [facility] [address] [place] [address] Pantograph Setter: Sy Rojas MD #### GAMALIEL VD25 #### [address] [address] Pantograph Setter: Oh Jean MD MCH (RBC) [Entitic mass] 25.8 pg Low 26-34 [facility] Comment on above: Performed By: #### Anna FAST, CDP, CP, MG, TSHX #### [facility] [address] [place] [address] Pantograph Setter: Sy Rojas MD #### GAMALIEL VD25 #### [address] [address] Pantograph Setter: Oh Jean MD MCHC (RBC) [Mass/Vol] 31.4 g/dL Normal 31-37 [facility] Comment on above: Performed By: #### Z FAST, CDP, CP, MG, TSHX #### [facility] [address] [place] [address] Pantograph Setter: Sy Rojas MD #### GAMALIEL VD25 #### [address] [address] Pantograph Setter: Oh Jean MD MCV (RBC) [Entitic vol] 82.1 fL Normal 80-100 [facility] Comment on above: Performed By: #### Z FAST, CDP, CP, MG, TSHX #### [facility] [address] [place], [place] [phone] Pantograph Setter: Sy Rojas MD #### LIPR, VD25 #### [address] [phone] Pantograph Setter: Oh Jean MD Monocytes (Bld) [#/Vol] 0.90 10*3/uL Normal 0.0-1.0 [facility] Comment on above: Performed By: #### Z FAST, CDP, CP, MG, TSHX #### [facility] [address] [place] [address] Pantograph Setter: Sy Rojas MD #### LIPR, VD25 #### [address] [phone] Pantograph Setter: Oh Jean MD Monocytes/100 WBC (Bld) 10 % High 5-9 [facility] Comment on above: Performed By: #### Z FAST, CDP, CP, MG, TSHX #### [facility] [address] [place] [phone] Pantograph Setter: Sy Rojas MD #### LIPR, VD25 #### [address] [phone] Pantograph Setter: Oh Jean MD Neutrophil (Seg) 74 % Normal 39-75 [facility] Comment on above: Performed By: #### Z FAST, CDP, CP, MG, TSHX #### [facility] [address] [place] [address] Pantograph Setter: Sy Rojas MD #### LIPR, VD25 #### [address] [phone] Pantograph Setter: Oh Jean MD Platelets (Bld) [#/Vol] 282 10*3/uL Normal 140-450 [facility] Comment on above: Performed By: #### Z FAST, CDP, CP, MG, TSHX #### [facility] [address] [place], [place] [phone] Pantograph Setter: Sy Rojas MD #### LIPR, VD25 #### [address] [address] Pantograph Setter: Oh Jean MD RBC (Bld) [#/Vol] 4.84 10*6/uL Normal 4.5-5.9 [facility] Comment on above: Performed By: #### Z FAST, CDP, CP, MG, TSHX #### [facility] [address] [place] [address] Pantograph Setter: Sy Rojas MD #### LIPR, VD25 #### [address] [address] Pantograph Setter: Oh Jean MD WBC (Bld) [#/Vol] 8.7 10*3/uL Normal 3.5-11.0 [facility] Comment on above: Performed By: #### Z FAST, CDP, CP, MG, TSHX #### [facility] [address] [place] [address] Pantograph Setter: Sy Rojas MD #### LIPR, VD25 #### [address] [address] Pantograph Setter: Oh Jean MD Comp Metabolic Profon 2022 Albumin [Mass/Vol] 3.6 g/dL Normal 3.5-5.2 [facility] Comment on above: Performed By: #### G LYHGB, LIPR #### [address] [address] Pantograph Setter: Oh Jean MD #### ZFAST, CP #### [facility] [address] [id number] Pantograph Setter: Sy Rojas MD Alkaline Phos 168 U/L High 40-129 [facility] Comment on above: Performed By: #### Armin LYHGB, LIPR #### [address] [place] [address] Pantograph Setter: Oh Jean MD #### EVER, CP #### [facility] [address] [place], [place] [id number] Pantograph Setter: Sy Rojas MD ALT [Catalytic activity/Vol] 23 U/L Normal 5-41 [facility] Comment on above: Performed By: #### Armin LYHGReina, LIPR #### [address] [id number] Pantograph Setter: Oh Jean MD #### EVER, CP #### [facility] [address] [place], [place] [id number] Pantograph Setter: Sy Rojas MD Anion gap [Moles/Vol] 14 mmol/L Normal 9-17 [facility] Comment on above: Performed By: #### Armin LEIVAHGReina, LIPR #### [address] [address] Pantograph Setter: Oh Jean MD #### EVER, CP #### [facility] [address] [place] [address] Pantograph Setter: Sy Rojas MD AST [Catalytic activity/Vol] 26 U/L Normal <40 [facility] Comment on above: Performed By: #### Armin LYHGB, LIPR #### [address] [address] Pantograph Setter: hO Jean MD #### BRYCEAST, CP #### [facility] [address] [place], [place] 1778390 Pantograph Setter: Sy Rojas MD Bilirubin [Mass/Vol] 1.8 mg/dL High 0.3-1.2 [facility] Comment on above: Performed By: #### G LYHGB, LIPR #### [facility] [address] [place] [address] Pantograph Setter: Oh Jean MD #### BRYCEAST, CP #### [facility] [address] [place], [place] 1827890 Pantograph Setter: Sy Rojas MD BUN/CRE Ratio 22 High 9-20 [facility] Comment on above: Performed By: #### G LYHGB, LIPR #### [address] [address] Pantograph Setter: Oh Jean MD #### EVER, CP #### [facility] [address] [place], [place] [phone] Pantograph Setter: Sy Rojas MD Calcium [Mass/Vol] 9.7 mg/dL Normal 8.6-10.4 [facility] Comment on above: Performed By: #### G LYHGB, LIPR #### [address] [address] Pantograph Setter: hO Jean MD #### BRYCEAST, CP #### [facility] [address] [place], [place] [phone] Pantograph Setter: Sy Rojas MD Chloride [Moles/Vol] 105 mmol/L Normal 98-107 [facility] Comment on above: Performed By: #### G LYHGB, LIPR #### [facility] [address] [place] [address] Pantograph Setter: hO Jean MD #### ZFAST, CP #### [facility] [address] [place] [address] Pantograph Setter: Sy Rojas MD CO2 [Moles/Vol] 21 mmol/L Normal 20-31 [facility] Comment on above: Performed By: #### G LYHGB, LIPR #### [facility] [address] [place] [address] Pantograph Setter: Oh Jean MD #### EVER, CP #### [facility] [address] [place] [address] Pantograph Setter: Sy Rojas MD Creatinine [Mass/Vol] 1.9 mg/dL High 0.7-1.2 [facility] Comment on above: Performed By: #### G LYHGB, LIPR #### [facility] [address] [place], [place] [phone] Pantograph Setter: Oh Jean MD #### EVER, CP #### [facility] [address] [place], [place] [phone] Pantograph Setter: Sy Rojas MD GFR/1.73 sq M.predicted among non-blacks MDRD (S/P/Bld) [Vol rate/Area] 39 mL/min/{1.73_m2} Low >60 [facility] Comment on above: Result Comment: These results [...] Performed By: #### G LYHGB, LIPR #### [facility] [address] [place] [address] Pantograph Setter: Oh Jean MD #### EVER, CP #### [facility] [address] [place], [place] [phone] Pantograph Setter: Sy Rojas MD Glucose [Mass/Vol] 95 mg/dL Normal 70-99 [facility] Comment on above: Performed By: #### G LYHGB, LIPR #### [facility] [address] [place] [address] Pantograph Setter: Oh Jean MD #### BRYCEAST, CP #### [facility] [address] [place] [address] Pantograph Setter: Sy Rojas MD Potassium [Moles/Vol] 5.6 mmol/L High 3.7-5.3 [facility] Comment on above: Performed By: #### G LYHGB, LIPR #### [address] [place] [address] Pantograph Setter: Oh Jean MD #### EVER, CP #### [facility] [address] [place], [place] [id number] Pantograph Setter: Sy Rojas MD Protein [Mass/Vol] 6.7 g/dL Normal 6.4-8.3 [facility] Comment on above: Performed By: #### G LYHGB, LIPR #### [address] [address] Pantograph Setter: Oh Jean MD #### EVER, CP #### [facility] [address] [place], [place] [phone] Pantograph Setter: Sy Rojas MD Sodium [Moles/Vol] 140 mmol/L Normal 135-144 [facility] Comment on above: Performed By: #### G LYHGB, LIPR #### [address] [address] Pantograph Setter: Oh Jean MD #### ZFAST, CP #### [facility] [address] [place] [address] Pantograph Setter: Sy Rojas MD Urea nitrogen [Mass/Vol] 42 mg/dL High 8-23 [facility] Comment on above: Performed By: #### G LYHGB, LIPR #### [facility] [address] [place], [place] [phone] Pantograph Setter: Oh Jean MD #### ZFAST, CP #### [facility] [address] [place], [place] [id number] Pantograph Setter: Sy Rojas MD Albumin [Mass/Vol] 3.6 g/dL Normal 3.5-5.2 [facility] Comment on above: Performed By: #### Z FAST, CDP, CP, MG, TSHX #### [facility] [address] [place], [place] [phone] Pantograph Setter: Sy Rojas MD #### GAMALIEL, VD25 #### [address] [phone] Pantograph Setter: Oh Jean MD Alkaline Phos 172 U/L High 40-129 [facility] Comment on above: Performed By: #### Z FAST, CDP, CP, MG, TSHX #### [facility] [address] [place], [place] [phone] Pantograph Setter: Sy Rojas MD #### GAMALIEL, VD25 #### [address] [id number] Pantograph Setter: Oh Jean MD ALT [Catalytic activity/Vol] 22 U/L Normal 5-41 [facility] Comment on above: Performed By: #### Z FAST, CDP, CP, MG, TSHX #### [facility] [address] [place], [place] [phone] Pantograph Setter: Sy Rojas MD #### GAMALIEL VD25 #### [address] [phone] Pantograph Setter: Oh Jean MD Anion gap [Moles/Vol] 12 mmol/L Normal 9-17 [facility] Comment on above: Performed By: #### Z FAST, CDP, CP, MG, TSHX #### [facility] [address] [place], [place] 2492190 Pantograph Setter: Sy Rojas MD #### LIPBeni, VD25 #### [address] [id number] Pantograph Setter: Oh Jean MD AST [Catalytic activity/Vol] 25 U/L Normal <40 [facility] Comment on above: Performed By: #### Z FAST, CDP, CP, MG, TSHX #### [facility] [address] [place], [place] [phone] Pantograph Setter: Sy Rojas MD #### GAMALIEL, VD25 #### [address] 1800908 Pantograph Setter: Oh Jean MD Bilirubin [Mass/Vol] 1.8 mg/dL High 0.3-1.2 [facility] Comment on above: Performed By: #### Z FAST, CDP, CP, MG, TSHX #### [facility] [address] [place], [place] [phone] Pantograph Setter: Sy Rojas MD #### GAMALIEL, VD25 #### [address] [id number] Pantograph Setter: Oh Jean MD BUN/CRE Ratio 22 High 9-20 [facility] Comment on above: Performed By: #### Z FAST, CDP, CP, MG, TSHX #### [facility] [address] [place], [place] 2490990 Pantograph Setter: Sy Rojas MD #### LIPR, VD25 #### [address] [phone] Pantograph Setter: Oh Jean MD Calcium [Mass/Vol] 9.8 mg/dL Normal 8.6-10.4 [facility] Comment on above: Performed By: #### Z FAST, CDP, CP, MG, TSHX #### [facility] [address] [place], [place] [id number] Pantograph Setter: Sy Rojas MD #### LIPR, VD25 #### [address] [phone] Pantograph Setter: Oh Jean MD Chloride [Moles/Vol] 105 mmol/L Normal 98-107 [facility] Comment on above: Performed By: #### Z FAST, CDP, CP, MG, TSHX #### [facility] [address] [place], [place] [phone] Pantograph Setter: Sy Rojas MD #### LIPR, VD25 #### [address] [phone] Pantograph Setter: Oh Jean MD CO2 [Moles/Vol] 23 mmol/L Normal 20-31 [facility] Comment on above: Performed By: #### Z FAST, CDP, CP, MG, TSHX #### [facility] [address] [place] [address] Pantograph Setter: Sy Rojas MD #### LIPR, VD25 #### [address] [phone] Pantograph Setter: Oh Jean MD Creatinine [Mass/Vol] 1.9 mg/dL High 0.7-1.2 [facility] Comment on above: Performed By: #### Z FAST, CDP, CP, MG, TSHX #### [facility] [address] [place] [address] Pantograph Setter: Sy Rojas MD #### LIPR, VD25 #### [address] [phone] Pantograph Setter: Oh Jean MD GFR/1.73 sq M.predicted among non-blacks MDRD (S/P/Bld) [Vol rate/Area] 39 mL/min/{1.73_m2} Low >60 [facility] Comment on above: Result Comment: These results [...] Z FAST, CDP, CP, MG, TSHX #### [facility] [address] [place] [address] Pantograph Setter: Sy Rojas MD #### GAMALIEL, VD25 #### [address] [id number] Pantograph Setter: Oh Jean MD Glucose [Mass/Vol] 93 mg/dL Normal 70-99 [facility] Comment on above: Performed By: #### Z FAST, CDP, CP, MG, TSHX #### [facility] [address] [place] [address] Pantograph Setter: Sy Rojas MD #### GAMALIEL, VD25 #### [address] [place], [place] [phone] Pantograph Setter: Oh Jean MD Potassium [Moles/Vol] 5.5 mmol/L High 3.7-5.3 [facility] Comment on above: Performed By: #### Z FAST, CDP, CP, MG, TSHX #### [facility] [address] [place] [address] Pantograph Setter: Sy Rojas MD #### LIPBeni, VD25 #### [address] [phone] Pantograph Setter: Oh Jean MD Protein [Mass/Vol] 6.8 g/dL Normal 6.4-8.3 [facility] Comment on above: Performed By: #### Z FAST, CDP, CP, MG, TSHX #### [facility] [address] [place], [place] [phone] Pantograph Setter: Sy Rojas MD #### LIPR, VD25 #### [address] [phone] Pantograph Setter: Oh Jean MD Sodium [Moles/Vol] 140 mmol/L Normal 135-144 [facility] Comment on above: Performed By: #### Z FAST, CDP, CP, MG, TSHX #### [facility] [address] [place], [place] 8584890 Pantograph Setter: Sy Rojas MD #### LIPR, VD25 #### [address] [phone] Pantograph Setter: Oh Jean MD Urea nitrogen [Mass/Vol] 41 mg/dL High 8-23 [facility] Comment on above: Performed By: #### Z FAST, CDP, CP, MG, TSHX #### [facility] [address] [place], [place] [id number] Pantograph Setter: Sy Rojas MD #### LIPR, VD25 #### [address] [phone] Pantograph Setter: Oh Jean MD Hemoglobin A1Con 02-20-2023 Glucose [Mass/Vol] 160 mg/dL Normal [facility] Comment on above: Result Comment: The ADA and AACC recommend providing the estimated average glucose result to permit better patient understanding of their HBA1c result. Performed By: #### G LYHGB, LIPR #### [address] [phone] Pantograph Setter: Oh Jean MD #### ZFAST, CP #### [facility] [address] [place], [place] 1151490 Pantograph Setter: Sy Rojas MD HbA1c (Bld) [Mass fraction] 7.2 % High 4.0-6.0 [facility] Comment on above: Performed By: #### G LYHGB, LIPR #### [address] [place], [place] 1174908 Pantograph Setter: Oh Jean MD #### ZFAST, CP #### [facility] [address] [place], [place] [phone] Pantograph Setter: Sy Rojas MD Lipid Profileon 02-20-2023 Cholesterol [Mass/Vol] 64 mg/dL Normal <200 [facility] Comment on above: Result Comment: Cholesterol Guidelines: <200 Desirable 200-240 Borderline >240 Undesirable Performed By: #### G LYHGB, LIPR #### [address] 1967208 Pantograph Setter: Oh Jean MD #### ZFAST, CP #### [facility] [address] [place], [place] 9950090 Pantograph Setter: Sy Rojas MD Cholesterol in HDL [Mass/Vol] 26 mg/dL Low >40 [facility] Comment on above: Result Comment: HDL Guidelines: <40 Undesirable 40-59 Borderline >59 Desirable Performed By: #### G LYHGB, LIPR #### [address] [address] Pantograph Setter: Oh Jean MD #### ZFAST, CP #### [facility] [address] [place], [place] [id number] Pantograph Setter: Sy Rojas MD Cholesterol in LDL [Mass/Vol] 23 mg/dL Normal 0-130 [facility] Comment on above: Result Comment: LDL Guidelines: <100 Desirable 100-129 Near to/above Desirable 130-159 Borderline >159 Undesirable Direct (measured) LDL and calculated LDL are not interchangeable tests. Performed By: #### G LYHGB, LIPR #### [facility] [employer] [address] [place] [address] Pantograph Setter: Oh Jean MD #### BRYCEAST, CP #### [facility] [address] [place] [address] Pantograph Setter: Sy Rojas MD Cholesterol.total/Cho lesterol in HDL [Mass ratio] 2.5 {ratio} Normal <5 [facility] Comment on above: Performed By: #### G LYHGB, LIPR #### [facility] [address] [place] [address] Pantograph Setter: Oh Jean MD #### EVER, CP #### [facility] [address] [place], [place] [phone] Pantograph Setter: Sy Rojas MD Triglyceride [Mass/Vol] 73 mg/dL Normal <150 [facility] Comment on above: Result Comment: Triglyceride Guidelines: <150 Desirable 150-199 Borderline 200-499 High >499 Very high Based on AHA Guidelines for fasting triglyceride, May 2012. Performed By: #### G LYHGB, LIPR #### [facility] [address] [place] [address] Pantograph Setter: Oh Jean MD #### EVER, CP #### [facility] [address] [place] [address] Pantograph Setter: Sy Rojas MD Cholesterol [Mass/Vol] 62 mg/dL Normal <200 [facility] Comment on above: Result Comment: Cholesterol Guidelines: <200 Desirable 200-240 Borderline >240 Undesirable Performed By: #### G LYHGB, LIPR #### [address] [place] [address] Pantograph Setter: Oh Jean MD #### BRYCEAST, CP #### [facility] [address] [place], [place] 4886190 Pantograph Setter: Sy Rojas MD Cholesterol in HDL [Mass/Vol] 26 mg/dL Low >40 [facility] Comment on above: Result Comment: HDL Guidelines: <40 Undesirable 40-59 Borderline >59 Desirable Performed By: #### G LYHGB, LIPR #### [address] [address] Pantograph Setter: Oh Jean MD #### EVER, CP #### [facility] [address] [place], [place] [phone] Pantograph Setter: Sy Rojas MD Cholesterol in LDL [Mass/Vol] 22 mg/dL Normal 0-130 [facility] Comment on above: Result Comment: LDL Guidelines: <100 Desirable 100-129 Near to/above Desirable 130-159 Borderline >159 Undesirable Direct (measured) LDL and calculated LDL are not interchangeable tests. Performed By: #### G LYHGReina, LIPR #### [address] [address] Pantograph Setter: Oh Jean MD #### EVER, CP #### [facility] [address] [place], [place] [id number] Pantograph Setter: Sy Rojas MD Cholesterol.total/Cho lesterol in HDL [Mass ratio] 2.4 {ratio} Normal <5 [facility] Comment on above: Performed By: #### Armin LYHGReina, LIPR #### [address] [address] Pantograph Setter: Oh Jean MD #### EVER, CP #### [facility] [address] [place], [place] [id number] Pantograph Setter: Sy Rojas MD Triglyceride [Mass/Vol] 72 mg/dL Normal <150 [facility] Comment on above: Result Comment: Triglyceride Guidelines: <150 Desirable 150-199 Borderline 200-499 High >499 Very high Based on AHA Guidelines for fasting triglyceride, May 2012. Performed By: #### G LYHGReina, LIPR #### [address] [phone] Pantograph Setter: Oh Jean MD #### EVER CP #### [facility] [address] [place], [place] [phone] Pantograph Setter: Sy Rojas MD Magnesiumon 02-20-2023 Magnesium [Mass/Vol] 1.9 mg/dL Normal 1.6-2.6 [facility] Comment on above: Performed By: #### Anna FAST, CDP, CP, MG, TSHX #### [facility] [address] [place], [place] 2465190 Pantograph Setter: Sy Rojas MD #### GAMALIEL VD25 #### [address] [phone] Pantograph Setter: Oh Jean MD Patient fasting?on 3 Patient fasting? yes Normal [facility] Comment on above: Performed By: #### G LYHGB, LIPR #### [address] [phone] Pantograph Setter: Oh Jean MD #### EVER, CP #### [facility] [address] [place], [place] 5760090 Pantograph Setter: Sy Rojas MD Patient fasting? yes Normal [facility] Comment on above: Performed By: #### Anna FAST, CDP, CP, MG, TSHX #### [facility] [address] [place], [place] [id number] Pantograph Setter: Sy Rojas MD #### GAMALIEL VD25 #### [address] [phone] Pantograph Setter: Oh Jean MD TSH w/reflex to FT4on 2022 Thyroid Stim. Horm. 2.99 uIU/mL Normal 0.30-5.00 [facility] Comment on above: Performed By: #### Z FAST, CDP, CP, MG, TSHX #### [facility] [address] [place] [address] Pantograph Setter: Sy Rojas MD #### LIPR, VD25 #### [facility] [address] [place], [place] [phone] Pantograph Setter: Oh Jean MD Vitamin D 25 OHon 02-20-2023 Vitamin D 25 [place] 54.9 ng/mL Normal >29.9 [facility] Comment on above: Result Comment: Reference Range: Vitamin D status Range Deficiency <20 ng/mL Mild Deficiency 20-30 ng/mL Sufficiency 30-100 ng/mL Toxicity >100 ng/mL Performed By: #### G LYHGB, LIPR #### [facility] [address] [place], [place] 0389708 Pantograph Setter: Oh Jean MD #### ZFAST, CP #### [facility] [address] [place] [address] Pantograph Setter: Sy Rojas MD XR CHEST (2 VW)on 02-20-2023 Radiology Study observation (narrative) [facility] Protime-INRon 01-04-2023 INR Coag (Bld) [Relative time] 3.1 {INR} [facility] Work Phone: [facility] Work Phone: CBC AUTO DIFFon 12-29-2022 BASO # 0.0 103/ul Normal 0.0-0.1 [facility] Comment on above: Performed By: #### C BC #### [facility] [address] [place] [address] Dr. Bertha Oden Basophils/100 WBC (Bld) 0.5 % Normal 0.2-2.0 [facility] Comment on above: Performed By: #### C BC #### [facility] [address] [address] [address] Bertha Oden EO # 0.1 103/ul Normal 0.0-0.7 [facility] Comment on above: Performed By: #### C BC #### [facility] [address] [place] [address] Dr. Bertha Oden Eosinophils/100 WBC (Bld) 1.0 % Normal 0.9-7.0 [facility] Comment on above: Performed By: #### C BC #### [facility] [address] [place] [address] Dr. Bertha Oden Erythrocyte distribution width (RBC) [Ratio] 18.2 % Critically high 11.0-15.0 [facility] Comment on above: Performed By: #### C BC #### [facility] [address] [place] [address] Dr. Bertha Oden Hematocrit (Bld) [Volume fraction] 40.8 % Critically low 42.0-54.0 [facility] Comment on above: Performed By: #### C BC #### [facility] [address] [place] [address] Dr. Bertha Oden Hemoglobin (Bld) [Mass/Vol] 12.5 g/dL Critically low 14.0-18.0 [facility] Comment on above: Performed By: #### C BC #### [facility] [address] [place] [address] Dr. Bertha Oden IG # 0.03 10e3/ul Normal 0.00-0.03 [facility] Comment on above: Performed By: #### C BC #### [facility] [address] [place] [address] Dr. Bertha Oden IG % 0.3 % Normal 0.0-0.5 [facility] Comment on above: Performed By: #### C BC #### [facility] [address] [place] [address] Dr. Bertha Oden LYMPH # 0.9 103/ul Critically low 1.2-3.8 [facility] Comment on above: Performed By: #### C BC #### [facility] [address] [place] [address] Dr. Bertha Oden Lymphocytes/100 WBC (Bld) 10.6 % Critically low 20.5-60.0 [facility] Comment on above: Performed By: #### C BC #### [facility] [address] [place] [address] Dr. Bertha Oden MANUAL DIFF REQ NO Normal [facility] Comment on above: Performed By: #### C BC #### [facility] [address] [place] [address] Dr. Bertha Oden MCH (RBC) [Entitic mass] 25.8 pg Critically low 25.9-34.0 [facility] Comment on above: Performed By: #### C BC #### [facility] [address] [place] [address] Dr. Bertha Oden MCHC (RBC) [Mass/Vol] 30.6 g/dL Normal 29.9-35.2 [facility] Comment on above: Performed By: #### C BC #### [facility] [address] [place] [address] Dr. Bertha Oden MCV (RBC) [Entitic vol] 84.3 fL Normal 80.0-94.0 [facility] Comment on above: Performed By: #### C BC #### [facility] [address] [place] [address] Dr. Bertha Oden MONO # 0.8 103/ul Normal 0.3-0.8 [facility] Comment on above: Performed By: #### C BC #### [facility] [address] [place] [address] Dr. Bertha Oden Monocytes/100 WBC (Bld) 9.5 % Normal 1.7-12.0 [facility] Comment on above: Performed By: #### C BC #### [facility] [address] [place] [address] Dr. Bertha Oden NEUT # 6.8 103/ul Critically high 1.4-6.5 [facility] Comment on above: Performed By: #### C BC #### [facility] [address] [place] [address] Dr. Bertha Oden Neutrophils/100 WBC (Bld) 78.1 % Critically high 43.0-75.0 [facility] Comment on above: Performed By: #### C BC #### [facility] [address] [address] [address] Bertha Oden Platelet mean volume (Bld) [Entitic vol] 9.5 fL Normal 9.5-13.5 [facility] Comment on above: Performed By: #### C BC #### [facility] [address] [address] [address] Bertha Oden PLT 285 103/ul Normal 150-450 [facility] Comment on above: Performed By: #### C BC #### [facility] [address] [place] [address] Dr. Bertha Oden RBC 4.84 106/ul Normal 4.70-6.10 [facility] Comment on above: Performed By: #### C BC #### [facility] [address] [place] [address] Dr. Bertha Oden WBC 8.7 103/ul Normal 4.0-11.0 [facility] Comment on above: Performed By: #### C BC #### [facility] [address] [place] [address] Dr. Bertha Oden CRPon 12-29-2022 CRP 2.9 mg/dL Critically high <=1.0 [facility] Comment on above: Performed By: #### B MP, URIC, CRP #### [facility] [address] [place] [address] Dr. Bertha Oden PROF CHEM 8 (BAS METB)on Anion gap [Moles/Vol] 15.0 mmol/L Normal [facility] Comment on above: Performed By: #### B MP, URIC, CRP #### [facility] [address] [place] [address] Dr. Bertha Oden Calcium [Mass/Vol] 9.3 mg/dL Normal 8.5-10.1 [facility] Comment on above: Performed By: #### B MP, URIC, CRP #### [facility] [address] [place] [address] Dr. Bertha Oden Chloride [Moles/Vol] 102 mmol/L Normal 98-107 [facility] Comment on above: Performed By: #### B MP, URIC, CRP #### [facility] [address] [address] [address] Bertha Oden CO2 [Moles/Vol] 26.6 mmol/L Normal 21.0-32.0 [facility] Comment on above: Performed By: #### B MP, URIC, CRP #### [facility] [address] [address] [address] Bertha Oden Creatinine [Mass/Vol] 1.99 mg/dL Critically high 0.70-1.30 [facility] Comment on above: Performed By: #### B MP, URIC, CRP #### [facility] [address] [place] [address] Dr. Bertha Oden EGFR-AF KYRGYZ 41 mL/min/1.73m2 Critically low >=60 [facility] Comment on above: Performed By: #### B MP, URIC, CRP #### [facility] [address] [place] [address] Dr. Bertha Oden EGFR-NON AF KYRGYZ 34 mL/min/1.73m2 Critically low >=60 [facility] Comment on above: Performed By: #### B MP, URIC, CRP #### [facility] [address] [place] [address] Dr. Bertha Oden Glucose [Mass/Vol] 183 mg/dL Critically high 74-106 [facility] Comment on above: Performed By: #### B MP, URIC, CRP #### [facility] [address] [place] [address] Dr. Bertha Oden Potassium [Moles/Vol] 4.6 mmol/L Normal 3.5-5.1 [facility] Comment on above: Performed By: #### B MP, URIC, CRP #### [facility] [address] [place] [address] Dr. Bertha Oden Sodium [Moles/Vol] 139 mmol/L Normal 136-145 [facility] Comment on above: Performed By: #### B MP, URIC, CRP #### [facility] [address] [address] [address] Bertha Oden Urea nitrogen [Mass/Vol] 45.0 mg/dL Critically high 7.0-18.0 [facility] Comment on above: Performed By: #### B MP, URIC, CRP #### [facility] [address] [address] [address] Bertha Oden Urea nitrogen/Creatinine [Mass ratio] 22.6 mg/mg Normal [facility] Comment on above: Performed By: #### B MP, URIC, CRP #### [facility] [address] [address] [address] Bertha Oden SED [facility]BERTRENon 2022 SED RATE 36 mm/hr Critically high <=20 [facility] Comment on above: Performed By: #### S EDR #### [facility] [address] [place] [address] Dr. Bertha Oden URIC ACID SERUMon 12-29-2022 Urate [Mass/Vol] 9.3 mg/dL Critically high 3.5-7.2 [facility] Comment on above: Performed By: #### B MP, URIC, CRP #### [facility] [address] [place] [address] Dr. Bertha Oden XR HAND LT MIN [...] by: LIONEL NICHOLS Date: 2022-12-29 21:02 Normal [facility] Protime-INRon 11-23-2022 INR Coag (Bld) [Relative time] 2.4 {INR} [facility] [employer] Work Phone: [employer] Work Phone: Protime-INRon 10-26-2022 INR Coag (Bld) [Relative time] 3.1 {INR} [facility] Work Phone: [facility] SECValyoo TechnologiesY HEALTH Work Phone: Protime-INRon 09-21-2022 INR Coag (Bld) [Relative time] 2.3 {INR} [facility] Work Phone: [facility] Work Phone: Protime-INRon 08-24-2022 INR Coag (Bld) [Relative time] 3.2 {INR} [facility] Work Phone: [facility] SECValyoo TechnologiesY [employer] Work Phone: Protime-INRon 07-27-2022 INR Coag (Bld) [Relative time] 3.9 {INR} [facility] Work Phone: [facility] SECValy[employer]Y [employer] Work Phone: Protime-INRon 06-01-2022 INR Coag (Bld) [Relative time] 4.2 {INR} [facility] [employer] Work Phone: [facility] [employer] Work Phone: Protime-INRon 04-27-2022 INR Coag (Bld) [Relative time] 2 {INR} [facility] Work Phone: [facility] [employer] Work Phone: Protime-INRon 03-30-2022 INR Coag (Bld) [Relative time] 2.3 {INR} [facility] Work Phone: [facility] [employer] Work Phone: Protime-INRon 03-16-2022 INR Coag (Bld) [Relative time] 1.8 {INR} [facility] Work Phone: [employer] Work Phone: Protime-INRon 03-02-2022 INR Coag (Bld) [Relative time] 1.8 {INR} [facility] [employer] Work Phone: [facility] [employer] Work Phone: XR CHEST (2 VW)on 02-23-2022 Mild cardiomegaly with left AICD. No acute cardiopulmonary abnormality. [facility] RIS CONSOLIDATED EXAM: XR CHEST (2 VW ). HISTORY: I25.10. CAD. I10 hypertension. COMPARISON: 12/28/2021 chest. TECHNIQUE: PA and lateral views. FINDINGS: Heart size is mildly prominent. There is a left single lead AICD in place. Aortic arch calcification is present. Central vasculature is satisfactory. Lung arguelles are expanded without infiltration, consolidation, edema, or effusion. Osseous structures appear intact. [facility] RIS CONSOLIDATED Guru Ramos, - [...] with left AICD. No acute cardiopulmonary abnormality. [employer] Work Phone: XR CHEST (2 VW)Ordered By: Beni Ramos on 02-23-[address] [facility] [employer] Work Phone: CBC Auto Differentialon 02-04 Absolute E[place] # 0.20 [place] [employer] Absolute Lymph # 1.60 [facility] Start[employer] Absolute [place] # 0.80 [facility] RS [employer] Basophils (Bld) [#/Vol] 0.10 10*3/uL [facility] [employer] Basophils/100 WBC (Bld) 1 % 0 - 2 % [facility] [employer] Differential Type YES [facility] [employer] Eosinophils/100 WBC (Bld) 2 % 0 - 5 % [facility] Hematocrit (Bld) [Volume fraction] 38.3 % Low 41 - 53 % [facility] Hemoglobin (Bld) [Mass/Vol] 12.9 g/dL Low 13.5 - 17.5 g/dL [facility] Interpretation and review of laboratory results Abnormal [facility] Lymphocytes/100 WBC (Bld) 18 % 13 - 44 % [facility] MCH (RBC) [Entitic mass] 29.7 pg 26 - 34 pg [facility] MCHC (RBC) [Mass/Vol] 33.5 g/dL 31 - 3 7 g/dL [facility] MCV (RBC) [Entitic vol] 88.6 fL 80 - 100 fL [facility] Monocytes/100 WBC (Bld) 10 % High 5 - 9 % [facility] Platelet distribution width (Bld) [Ratio] 17.7 % High 12.1 - 15.2 % [facility] Platelets (Bld) [#/Vol] 239 10*3/uL [facility] RBC (Bld) [#/Vol] 4.33 10*6/uL Low 4.5 - 5.9 m/uL [facility] Segmented neutrophils/100 WBC (Bld) 69 % 39 - 75 % [facility] Segs Absolute 6.10 [facility] WBC (Bld) [#/Vol] 8.7 10*3/uL [facility] Comprehensive Metabolic Pane yonis 02-22-2022 Albumin [Mass/Vol] 4.1 g/dL 3.5 - 5.2 g/dL [facility] ALP (Bld) [Catalytic activity/Vol] 66 U/L 40 - 129 U/L [facility] ALT [Catalytic activity/Vol] 18 U/L 5 - 41 U/L [facility] Anion gap [Moles/Vol] 13 mmol/L 9 - 17 mmol/L [facility] AST [Catalytic activity/Vol] 16 U/L NINF - 40 U/L [facility] Bilirubin [Mass/Vol] 1.09 mg/dL 0.3 - 1 .2 mg/dL [facility] Calcium [Mass/Vol] 10.0 mg/dL 8.6 - 10. 4 mg/dL [facility] Chloride [Moles/Vol] 101 mmol/L 98 - 10 7 mmol/L [facility] CO2 [Moles/Vol] 26 mmol/L 20 - 31 mmol/L [facility] Creatinine [Mass/Vol] 1.59 mg/dL High 0.7 - 1.2 mg/dL [facility] Free PSA/Total PSA [Mass fraction] 7.2 g/dL 6.4 - 8.3 g/dL [facility] GFR 53 mL/min Low 60 - PI NF mL/min [facility] GFR Non- 44 mL/min Low 60 - PINF mL/min [facility] GFR/1.73 sq M.predicted MDRD (S/P/Bld) [Vol rate/Area] [facility] Comment on above: Average GFR for 60-6 9 years old: 85 mL/min/1.73sq m Chronic Kidney Disease: <60 mL/min/1.73sq m Kidney failure: <15 mL/min/1.73sq m eGFR calculated using average adult body mass. Additional eGFR calculator available at: http://www.Personal [employer]/multiple_crcl_2012.htm Glucose [Mass/Vol] 97 mg/dL 70 - 99 mg/dL [facility] Interpretation and review of laboratory results Abnormal [facility] Potassium [Moles/Vol] 4.7 mmol/L 3.7 - 5.3 mmol/L [facility] Sodium [Moles/Vol] 140 mmol/L 135 - 144 mmol/L [facility] Urea nitrogen (BldV) [Mass/Vol] 32 mg/dL High 8 - 23 mg/dL [facility] Urea nitrogen/Creatinine (Bld) [Mass ratio] 20 9 - 20 [facility] Hemoglobin A1Con 02-22-2022 Glucose [Mass/Vol] 146 mg/dL [facility] Comment on above: The ADA and AACC rec ommend providing the estimated average glucose result to permit better patient understanding of their HBA1c result. HbA1c (Bld) [Mass fraction] 6.7 % High 4 - 6 % [facility] Interpretation and review of laboratory results Abnormal [facility] Glucose [Mass/Vol] 146 mg/dL [facility] Comment on above: The ADA and AACC rec ommend providing the estimated average glucose result to permit better patient understanding of their HBA1c result. HbA1c (Bld) [Mass fraction] 6.7 % High 4 - 6 % [facility] Interpretation and review of laboratory results Abnormal [facility] Lipid Panelon 02-22-2022 Cholesterol [Mass/Vol] 128 mg/dL NINF - 200 mg/dL [facility] Comment on above: Cholesterol Guidelines: <200 Desirable 200-240 Borderline >240 Undesirable Cholesterol in HDL [Mass/Vol] 32 mg/dL Low 40 - PINF mg/dL [facility] [employer] Comment on above: HDL Guidelines: <40 Undesirable 40-59 Borderline >59 Desirable Cholesterol in LDL [Mass/Vol] 52 mg/dL 0 - 130 mg/dL [facility] Comment on above: LDL Guidelines: <100 Desirable 100-129 Near to/above Desirable 130-159 Borderline >159 Undesirable Direct (measured) LDL and calculated LDL are not interchangeable tests. Cholesterol.total/Cho lesterol in HDL [Mass ratio] 4 {ratio} NINF - 5 [facility] Interpretation and review of laboratory results Abnormal [facility] Triglyceride [Mass/Vol] 222 mg/dL High NINF - 150 mg/dL [facility] Comment on above: Triglyceride Guidelines: <150 Desirable 150-199 Borderline 200-499 High >499 Very high Based on AHA Guidelines for fasting triglyceride, May 2012. [facility] [employer] Magnesiumon 02-22-2022 Magnesium [Mass/Vol] 1.6 mg/dL 1.6 - 2 .6 mg/dL [facility] [employer] No Panel Informationon 02-22 [facility] Patient Fasting?on 2 Patient Fasting? YES [facility] [employer] Protime-INRon 02-22-2022 INR Coag (Bld) [Relative time] 1.4 {INR} [facility] Work Phone: [employer] Work Phone: TSH with Reflexon 02-22-2022 TSH Qn 2.10 m[IU]/L [employer] Vitamin D 25 Hydroxyon 02-22 Vit D, 25-Hydroxy 54.9 ng/mL 29.9 - PIN F ng/mL [employer] Comment on above: Reference Range: Vitamin D status Range Deficiency <20 ng/mL Mild Deficiency 20-30 ng/mL Sufficiency 30-100 ng/mL Toxicity >100 ng/mL [employer] XR CHEST (2 VW)on 02-22-2022 Radiology Study observation (narrative) [employer] Work Phone: Protime-INRon 02-03-2022 INR Coag (Bld) [Relative time] 2.1 {INR} [employer] Work Phone: [employer] Work Phone: Protime-INRon 01-27-2022 INR Coag (Bld) [Relative time] 6.8 {INR} [employer] Work Phone: [employer] Work Phone: Protime-INRon 01-20-2022 INR Coag (Bld) [Relative time] 2.6 {INR} [employer] Work Phone: [employer] Work Phone: Protime-INRon 01-13-2022 INR Coag (Bld) [Relative time] 6.2 {INR} [employer] Work Phone: [employer] Work Phone: VL DUP UPPER EXTREMITY VENOU S LEFTon 01-08-2022 Radiology exam is complete. No Radiologist dictation. Please follow up with ordering provider. [facility] CPACS Protime-INRon 01-06-2022 INR Coag (Bld) [Relative time] 2.5 {INR} [facility] [facility] Work Phone: [facility] Work Phone: ECG 12 Leadon 12-29-2021 Atrial Rate 89 BPM [facility] P Norman 82 degrees [facility] P-R Interval 184 ms [facility] Q-T Interval 368 ms [facility] QRS Duration 114 ms [facility] QTC Calculation (Bezet) 447 ms [facility] R Norman -20 degrees [facility] T Norman 58 degrees [facility] Ventricular Rate 89 BPM [facility] Sinus rhythm with occasional Premature ventricular complexes and Fusion complexes Incomplete left bundle branch block Nonspecific T wave abnormality Abnormal ECG Confirmed by Allan Jasso MD ([id number]) on 12/29/2021 1:09:48 PM [facility] Echocardiogram complete w co ntrastOrdered By: Mary Smith on 12-29-2021 Aortic valve area 2.7747 cm [facility] Work Phone: AV mean gradient 2.83495 mmHg [facility] Work Phone: AV peak gradient 4.85878 mmHg [facility] Work Phone: EF 18.3022 % [facility] Work Phone: [facility] Work Phone: Echocardiogram complete w co ntraston 12-29-2021 Patient Info Name: GREGG FOSTER Age: 66 years : 1955 Gender: Male Ht: 180 cm Wt: 108 kg BSA: 2.36 m2 HR: 71 bpm BP: 117 / 77 mmHg Heart Rhythm: Sinus Rhythm Technical Quality: Technically difficult Exam Date: 12/29/2021 10:12 AM Patient Status: Inpatient Designer: Mary Abraham RCDS Exam Type: ECHOCARDIOGRAM COMPLETE W CONTRAST Study Info Indications I50.20 - Unspecified systolic (congestive) heart failure Referring Physician: SNEHAL Enriquez; [id number] BMI: 33.33 kg/m2 Summary 1. Severe left [...] atrial septal defect repair. Cannot exclude residual udky-az-lirmj shunt on color Doppler. 8. No left [...] atrial septal defect repair. Cannot exclude residual zryd-ow-nacla shunt on color Doppler. Aortic Valve The [...] (more content not included)... FUJI SYNAPSE CV Mary Smith MD - 12/29/2021 Patient Info Name: GREGG FOSTER Age: 66 years : 1955 Gender: Male Ht: 180 cm Wt: 108 kg BSA: 2.36 m2 HR: 71 bpm BP: 117 / 77 mmHg Heart Rhythm: Sinus Rhythm Technical Quality: Technically difficult Exam Date: 12/29/2021 10:12 AM Patient Status: Inpatient Designer: Mary Abraham RCDS Exam Type: ECHOCARDIOGRAM COMPLETE W CONTRAST Study Info Indications I50.20 - Unspecified systolic (congestive) heart failure Referring Physician: SNEHAL Enriquez; [id number] BMI: 33.33 kg/m2 Summary 1. Severe left [...] atrial septal defect repair. Cannot exclude residual vbvo-fq-zlvlb shunt on color Doppler. 8. No left [...] atrial septal defect repair. Cannot exclude residual cplp-ah-ctwxg shunt on color Doppler. Aortic Valve The [...] Normal LVOT 2D (more content not included)... [facility] Radiology Study observation (narrative) [facility] Glucose (Bld) [Mass/Vol]on 0 12-29-2021 Glucose [Mass/Vol] 142 mg/dL High 65 - 99 mg/dL [facility] Interpretation and review of laboratory results Abnormal [facility] INR Coag (PPP) [Relative latrell e]on 12-29-2021 Interpretation and review of laboratory results Abnormal [facility] PT Coag (PPP) [Time] 16.[address] [facility] During the induction phase of oral anticoagulation, the INR may not reflect the anticoagulation status of the patient. Therapeutic ranges for INR's are: Most clinical situations: INR 2.0-3.0 Mechanical Prosthetic Valve: INR 2.5-3.5 Critical: INR >5.0 [facility] PT/INRon 12-29-2021 INR Coag (PPP) [Relative time] 1.3 {INR} High 0.8 - 1.1 [facility] ACT Coag (Bld)on 12-28-2021 Kaolin activated time Qn (Bld) 387 seconds [facility] ANGIOGRAPHY IMAGING FOR ORon 12-28-2021 Please see OpNote in Notes tab for results. [employer] Radiology Study observation (narrative) [facility] ANGIOGRAPHY IMAGING FOR OROr dered By: Radiologist Generic on 12-28-2021 [facility] Electrolytes panel (Bld)on 12-28-2021 Anion gap [Moles/Vol] 11 mmol/L 10 - 2 0 mmol/L [facility] Chloride [Moles/Vol] 108 mmol/L 98 - 10 8 mmol/L [facility] HCO3 [Moles/Vol] 23 mmol/L 21 - 32 mmol/L [facility] Interpretation and review of laboratory results Abnormal [facility] Potassium [Moles/Vol] 5.2 mmol/L High 3.5 - 5.1 mmol/L [facility] Sodium [Moles/Vol] 137 mmol/L 135 - 145 mmol/L [facility] Glucose (Bld) [Mass/Vol]on 0 12-28-2021 Glucose [Mass/Vol] 160 mg/dL High 65 - 99 mg/dL [facility] Interpretation and review of laboratory results Abnormal [facility] Glucose [Mass/Vol] 117 mg/dL High 65 - 99 mg/dL [facility] Interpretation and review of laboratory results Abnormal [facility] Glucose [Mass/Vol] 137 mg/dL High 65 - 99 mg/dL [facility] Interpretation and review of laboratory results Abnormal [facility] INR Coag (PPP) [Relative latrell e]on 12-28-2021 Interpretation and review of laboratory results Abnormal [facility] PT Coag (PPP) [Time] 15.[address] [facility] During the induction phase of oral anticoagulation, the INR may not reflect the anticoagulation status of the patient. Therapeutic ranges for INR's are: Most clinical situations: INR 2.0-3.0 Mechanical Prosthetic Valve: INR 2.5-3.5 Critical: INR >5.0 [facility] No Panel Informationon 12-28 [facility] PT/INRon 12-28-2021 INR Coag (PPP) [Relative time] 1.3 {INR} High 0.8 - 1.1 [facility] Troponin Onceon 12-28-2021 Troponin I 33 ng/L NINF - 59 ng/L [facility] Troponin I Interpretation Normal [facility] Troponin x 2 (Now and Repeat in 3 hours)on 12-28-2021 Interp Troponin I Delta Change Delta troponin requires at least 3 hours between collections. [facility] Troponin I 31 ng/L NINF - 59 ng/L [facility] Protime-INRon 12-22-2021 INR Coag (Bld) [Relative time] 6.8 {INR} [employer] Work Phone: [employer] Phone: Protime-INRon 12-09-2021 INR Coag (Bld) [Relative time] 3.3 {INR} [employer] Phone: [employer] Phone: Protime-INRon 11-16-2021 INR Coag (Bld) [Relative time] 1.9 {INR} [employer] Phone: [employer] Phone: VL DUP CAROTID BILATERALon 0 10-26-2021 [facility] Carotid Duplex Study Patient Name KRISTIN Date of Study 10/26/2021 GREGG Beni Date of 1955 Gender Male Age 66 year(s) Race Room Number Corporate ID [id number] # Patient Acct [id number] # MR # [id number] Designer Tabitha Jhaveri Interpreting Anali Johnson Physician Referring [...] !0.49 ! ! (more content not included)... [facility] Barry Johnson Jr., MD - 10/26/2021 [facility] Carotid Duplex Study Patient Name KRISTIN Date of Study 10/26/2021 GREGG Bazan Date of 1955 Gender Male Age 66 year(s) Race Room Number Corporate ID [id number] # Patient Acct [id number] # MR # [id number] Designer Tabitha Jhaveri Interpreting Anali Johnson Physician Referring [...] side. - Additional Measurements:ICAPSV/CCAP SV 1.32.ICAEDV/CCAEDV 2.99. [employer] Phone: Radiology Study observation (narrative) [employer] Phone: VL DUP CAROTID BILATERALOrde red By: Barry Johnson on 10-26-2021 [employer] Phone: Protime-INRon 08-10-2021 INR Coag (Bld) [Relative time] 3.2 {INR} [employer] Phone: [employer] Phone: Protime-INROrdered By: Crispin perezal Provider on 06-07-2021 INR Coag (Bld) [Relative time] 3.1 {INR} [employer] Phone: [employer] Phone: Protime-INROrdered By: Cynthiao rical Provider on 04-23-2021 INR Coag (Bld) [Relative time] 2.6 {INR} [employer] Phone: [employer] Phone: Protime-INROrdered By: Histo rical Provider on 03-01-2021 INR Coag (Bld) [Relative time] 2.8 {INR} [employer] Phone: [employer] Phone: CBC Auto DifferentialOrdered By: Rafa Nicole on 02-25-2021 Absolute Eos # 0.20 [employer] Work Phone: Absolute Immature Granulocyte NOT REPORTED [employer] Phone: Absolute Lymph # 1.60 [id number] Work Phone: Absolute [place] # 0.80 [facility]777[facility] Work Phone: Basophils (Bld) [#/Vol] 0.00 10*3/uL [employer] Work Phone: Basophils/100 WBC (Bld) 1 % 0 - 2 % [employer] Work Phone: Differential Type YES [employer] Work Phone: Eosinophils/100 WBC (Bld) 2 % 0 - 5 % [employer] Work Phone: Hematocrit (Bld) [Volume fraction] 45.5 % 41 - 53 % [employer] Phone: Hemoglobin.gastrointe stinal spec 1 Ql (Stl) 15.2 g/dL 13.5 - 17.5 g/dL [employer] Phone: Immature Granulocytes NOT REPORTED 0 % M [facility] Work Phone: Lymphocytes/100 WBC (Bld) 18 % 13 - 44 % [employer] Phone: MCH (RBC) [Entitic mass] 30.3 pg 26 - 34 pg [employer] Phone: MCHC (RBC) [Mass/Vol] 33.4 g/dL 31 - 3 7 g/dL [employer] Phone: MCV (RBC) [Entitic vol] 90.5 fL 80 - 100 fL [employer] Work Phone: Monocytes/100 WBC (Bld) 9 % 5 - 9 % [employer] Phone: NRBC Automated NOT REPORTED per 100 WBC [employer] Work Phone: Platelet distribution width (Bld) [Ratio] 15.1 % 12.1 - 15.2 % [employer] Phone: Platelet Estimate NOT REPORTED [employer] Phone: Platelet mean volume (Bld) [Entitic vol] NOT REPORTED 6.0 - 12.0 fL [employer] Work Phone: Platelets (Bld) [#/Vol] 210 10*3/uL [employer] Phone: RBC (Bld) [#/Vol] 5.02 10*6/uL 4.5 - 5.9 m/uL [employer] Work Phone: RBC (Bld) [#/Vol] NOT REPORTED [facility] [facility] Work Phone: Segmented neutrophils/100 WBC (Bld) 70 % 39 - 75 % [employer] Work Phone: Segs Absolute 6.50 [email or web address] Work Phone: WBC (Bld) [#/Vol] 9.2 10*3/uL [facility] Work Phone: WBC (Bld) [#/Vol] NOT REPORTED [employer] Phone: [facility] Work Phone: Comprehensive Metabolic Pane lOrdered By: Rafa Nicole on 02-25-2021 Albumin [Mass/Vol] 4 g/dL 3.5 - 5.2 g/dL [employer] Phone: Albumin/Globulin Ratio NOT REPORTED [employer] Phone: ALP (Bld) [Catalytic activity/Vol] 60 U/L 40 - 129 U/L [employer] Phone: ALT [Catalytic activity/Vol] 19 U/L 5 - 41 U/L [employer] Phone: Anion gap [Moles/Vol] 9 mmol/L 9 - 17 mmol/L [employer] Phone: AST [Catalytic activity/Vol] 18 U/L <40 [employer] Phone: Bilirubin [Mass/Vol] 1.55 mg/dL High 0.30 - 1.20 mg/dL [employer] Phone: Calcium [Mass/Vol] 9.6 mg/dL 8.6 - 10. 4 mg/dL [employer] Phone: Chloride [Moles/Vol] 102 mmol/L 98 - 10 7 mmol/L [employer] Phone: CO2 [Moles/Vol] 28 mmol/L 20 - 31 mmol/L [employer] Phone: Creatinine [Mass/Vol] 1.61 mg/dL High 0.70 - 1.20 mg/dL [employer] Phone: Free PSA/Total PSA [Mass fraction] 7.3 g/dL 6.4 - 8.3 g/dL [employer] Phone: GFR 53 mL/min Low >60 [employer] Phone: GFR Non- 44 mL/min Low >60 [employer] Phone: GFR/1.73 sq M.predicted MDRD (S/P/Bld) [Vol rate/Area] [employer] Phone: Comment on above: Average GFR for 60-6 9 years old: 85 mL/min/1.73sq m Chronic Kidney Disease: <60 mL/min/1.73sq m Kidney failure: <15 mL/min/1.73sq m eGFR calculated using average adult body mass. Additional eGFR calculator available at: http://www.[employer].com/multiple_crcl_2012.htm GFR/1.73 sq M.predicted MDRD (S/P/Bld) [Vol rate/Area] NOT REPORTED [employer] Phone: Glucose [Mass/Vol] 88 mg/dL 70 - 99 mg/dL [employer] Phone: Interpretation and review of laboratory results Abnormal [employer] Phone: Potassium [Moles/Vol] 4.5 mmol/L 3.7 - 5.3 mmol/L [employer] Phone: Sodium [Moles/Vol] 139 mmol/L 135 - 144 mmol/L [employer] Phone: Urea nitrogen (BldV) [Mass/Vol] 26 mg/dL High 8 - 23 mg/dL [employer] Phone: Urea nitrogen/Creatinine (Bld) [Mass ratio] 16 [employer] Phone: Hemoglobin [id number] By: Tim Cerda on 02-25-2021 Glucose [Mass/Vol] 143 mg/dL [employer] Phone: Comment on above: The ADA and AACC rec ommend providing the estimated average glucose result to permit better patient understanding of their HBA1c result. HbA1c (Bld) [Mass fraction] 6.6 % High 4.0 - 6.0 % [employer] Phone: Interpretation and review of laboratory results Abnormal [employer] Phone: [employer] Phone: Lipid PanelOrdered By: Rafa Nicole on 02-25-2021 Cholesterol [Mass/Vol] 137 mg/dL <200 [employer] Phone: Comment on above: Cholesterol Guidelines: <200 Desirable 200-240 Borderline >240 Undesirable Cholesterol in HDL [Mass/Vol] 32 mg/dL Low >40 [employer] Phone: Comment on above: HDL Guidelines: <40 Undesirable 40-59 Borderline >59 Desirable Cholesterol in LDL [Mass/Vol] 72 mg/dL 0 - 130 mg/dL [employer] Phone: Comment on above: LDL Guidelines: <100 Desirable 100-129 Near to/above Desirable 130-159 Borderline >159 Undesirable Direct (measured) LDL and calculated LDL are not interchangeable tests. Cholesterol in VLDL [Mass/Vol] NOT REPORTED High 1 - 30 mg/dL [employer] Phone: Cholesterol.total/Cho lesterol in HDL [Mass ratio] 4.3 {ratio} <5 [employer] Phone: Interpretation and review of laboratory results Abnormal [employer] Phone: Triglyceride [Mass/Vol] 164 mg/dL High <150 [employer] Phone: Comment on above: Triglyceride Guidelines: <150 Desirable 150-199 Borderline 200-499 High >499 Very high Based on AHA Guidelines for fasting triglyceride, May 2012. [employer] Phone: MagnesiumOrdered By: Rafa villafana on 02-25-2021 Magnesium [Mass/Vol] 1.9 mg/dL 1.6 - 2 .6 mg/dL [employer] Phone: No Panel InformationOrdered By: Rafa Nicole on 02-25-2021 [employer] Phone: Patient Fasting?Ordered By: Rafa Nicole on 02-25-2021 Patient Fasting? yes [employer] Phone: [employer] Phone: TSH with ReflexOrdered By: Armin Nicole on 02-25-2021 TSH Qn 2.72 m[IU]/L [employer] Phone: Vitamin D 25 HydroxyOrdered By: Rafa Nicole on 02-25-2021 Vit D, 25-Hydroxy 56.4 ng/mL 30.0 - 100.0 ng/mL [employer] Phone: Comment on above: Reference Range: Vitamin D status Range Deficiency <20 ng/mL Mild Deficiency 20-30 ng/mL Sufficiency 30-100 ng/mL Toxicity >100 ng/mL [employer] Phone: Protime-INROrdered By: Crispin patel Provider on 12-29-2020 INR Coag (Bld) [Relative time] 3.8 {INR} [employer] Phone: [employer] Phone: Creatinine W/GFR Point of Ca reOrdered By: Ayde Matthews on 11-23-2020 Creatinine [Mass/Vol] 1.61 mg/dL High 0.51 - 1.19 mg/dL [employer] Phone: GFR Non- 43 mL/min Low >60 [employer] Phone: GFR/1.73 sq M.predicted MDRD (S/P/Bld) [Vol rate/Area] 53 mL/min/{1.73_m2} Low >60 [employer] Phone: GFR/1.73 sq M.predicted MDRD (S/P/Bld) [Vol rate/Area] [employer] Phone: Comment on above: Average GFR for 60-6 9 years old: 85 mL/min/1.73sq m Chronic Kidney Disease: <60 mL/min/1.73sq m Kidney failure: <15 mL/min/1.73sq m eGFR calculated using average adult body mass. Additional eGFR calculator available at: http://www.[employer]/multiple_crcl_2012.htm Interpretation and review of laboratory results Abnormal [employer] Phone: POC Glucose FingerstickOrder ed By: Ayde Matthews on 11-23-2020 Glucose [Mass/Vol] 116 mg/dL High 75 - 110 mg/dL [employer] Phone: Interpretation and review of laboratory results Abnormal [employer] Phone: POCT GlucoseOrdered By: Rafa Matthews on 11-23-2020 Glucose [Mass/Vol] 94 mg/dL 74 - 100 mg/dL [employer] Phone: POCT INROrdered By: Ayde Matthews on 11-23-2020 POC INR 1.1 [employer] Phone: Comment on above: Therapeutic Range: Moderate Anticoagulant Intensity: INR = 2.0-3.0 High Anticoagulant Intensity: INR = 2.5-3.5 PT Coag (PPP) [Time] 13.3 s [employer]ana Phone: POTASSIUM (POC)Ordered By: Armin Matthews on 11-23-2020 Potassium [Moles/Vol] 4.5 mmol/L 3.5 - 4.5 mmol/L [employer] Phone: Surgical Pathologyon 021 Surgical Pathology (NOTE) -- Diagnosis -- GALLBLADDER, CHOLECYSTECTOMY:- CHRONIC CHOLECYSTITIS.- CHOLELITHIASIS. Allan Hurst, Electronically Signed Out sls/11/24/2020 Clinical Information Pre-op Diagnosis: GALLSTONES Operative Findings: GALLBLADDER AND CONTENTS Operation Performed: LAPAROSCOPIC CHOLECYSTECTOMY Source of Specimen 1: GALLBLADDER AND CONTENTS Gross Description GREGG ABURTOKRISTIN, GALLBLADDER AND CONTENTS 9.2 x 4.3 [...] SURGICAL PATHOLOGY CONSULTATION Patient Name: GREGG FOSTER [facility] Rec: [id number] Path Number: [id number] [facility] ANATOMIC PATHOLOGY [address] [place] [id number] Normal [facility] Comment on above: Performed By: #### P PPVS #### [email or web address] [address] [place] [phone] Pantograph Setter: Oh Jean MD Protime-INRon 11-17-2020 INR Coag (Bld) [Relative time] 2.9 {INR} [employer] Phone: EKG 12 Leadon 11-10-2020 Atrial Rate 69 BPM [employer] Phone: P Norman 51 degrees [employer] Phone: P-R Interval 200 ms [employer] Phone: Q-T Interval 448 ms [employer] Phone: QRS Duration 134 ms [facility] Work Phone: QTc Calculation (Bazett) 480 ms [employer] Phone: R Norman -41 degrees [employer] Phone: T Norman 113 degrees [employer] Phone: Ventricular Rate 69 BPM [employer] Work Phone: Andrés, Mhpn Incoming E kg Results From [facility] - 11/10/2020 2:08 PM EDT Sinus rhythm with frequent , and consecutive Premature ventricular complexes Left axis deviation Non-specific intra-ventricular conduction block T wave abnormality, consider lateral ischemia Abnormal ECG No previous ECGs available [employer] Phone: Sinus rhythm with frequent , and consecutive Premature ventricular complexes Left axis deviation Non-specific intra-ventricular conduction block T wave abnormality, consider lateral ischemia Abnormal ECG No previous ECGs available [employer] Phone: Basic Metabolic Panelon 04-0 Anion gap [Moles/Vol] 11 mmol/L 9 - 17 mmol/L [employer] Phone: Calcium [Mass/Vol] 9.9 mg/dL 8.6 - 10. 4 mg/dL [employer] Phone: Chloride [Moles/Vol] 102 mmol/L 98 - 10 7 mmol/L [employer] Phone: CO2 [Moles/Vol] 24 mmol/L 20 - 31 mmol/L [employer] Phone: Creatinine [Mass/Vol] 1.71 mg/dL High 0.70 - 1.20 mg/dL [employer] Phone: GFR 49 mL/min Low >60 [employer] Phone: GFR Non- 41 mL/min Low >60 [employer] Phone: GFR/1.73 sq M.predicted MDRD (S/P/Bld) [Vol rate/Area] NOT REPORTED [employer] Phone: GFR/1.73 sq M.predicted MDRD (S/P/Bld) [Vol rate/Area] [employer] Phone: Comment on above: Average GFR for 60-6 9 years old: 85 mL/min/1.73sq m Chronic Kidney Disease: <60 mL/min/1.73sq m Kidney failure: <15 mL/min/1.73sq m eGFR calculated using average adult body mass. Additional eGFR calculator available at: http://www.[employer]/multiple_crcl_2012.htm Glucose [Mass/Vol] 133 mg/dL High 70 - 99 mg/dL [employer] Phone: Interpretation and review of laboratory results Abnormal [employer] Phone: Potassium [Moles/Vol] 4.8 mmol/L 3.7 - 5.3 mmol/L [employer] Phone: Sodium [Moles/Vol] 137 mmol/L 135 - 144 mmol/L [employer] Phone: Urea nitrogen (BldV) [Mass/Vol] 37 mg/dL High 8 - 23 mg/dL [employer] Phone: Urea nitrogen/Creatinine (Bld) [Mass ratio] NOT REPORTED [employer] Phone: Basic Metabolic Profon 11-09 (cont.) Normal [facility] Comment on above: Result Comment: Aver age GFR for 60-69 years old: 85 mL/min/1.73sq m Chronic Kidney Disease: <60 mL/min/1.73sq m Kidney failure: <15 mL/min/1.73sq m eGFR calculated using average adult body mass. Additional eGFR calculator available at: http://www.[employer]/multiple_crcl_2012.htm Performed By: #### C BC, PT, BMP #### [employer] [address] [place] [address] Pantograph Setter: Oh Jean MD Anion gap [Moles/Vol] 11 mmol/L Normal 9-17 [facility] Comment on above: Performed By: #### C KWASI, PT, BMP #### [facility] [address] [place] [address] Pantograph Setter: Oh Jean MD Calcium [Mass/Vol] 9.9 mg/dL Normal 8.6-10.4 [facility] Comment on above: Performed By: #### C BC, PT, BMP #### [facility] [address] [place] [address] Pantograph Setter: Oh Jean MD Chloride [Moles/Vol] 102 mmol/L Normal 98-107 [facility] Comment on above: Performed By: #### C BC, PT, BMP #### [facility] [address] [place] [address] Pantograph Setter: Oh Jean MD CO2 [Moles/Vol] 24 mmol/L Normal 20-31 [facility] Comment on above: Performed By: #### C BC, PT, BMP #### [email or web address] [address] [place] [address] Pantograph Setter: Oh Jean MD Creatinine [Mass/Vol] 1.71 mg/dL High 0.70-1.20 [facility] Comment on above: Performed By: #### C BC, PT, BMP #### [facility] [address] [place] [address] Pantograph Setter: Oh Jean MD GFR, Amer 49 mL/min Low >60 [facility] Comment on above: Performed By: #### C BC, PT, BMP #### [facility] [address] [place] [address] Pantograph Setter: Oh Jean MD GFR,non Amer 41 mL/min Low >60 [facility] Comment on above: Performed By: #### C BC, PT, BMP #### [facility] [address] [place] [address] Pantograph Setter: Oh Jean MD Glucose [Mass/Vol] 133 mg/dL High 70-99 [facility] Comment on above: Performed By: #### C KWASI, PT, BMP #### [facility] [employer] [address] [place] [address] Pantograph Setter: Oh Jean MD Potassium [Moles/Vol] 4.8 mmol/L Normal 3.7-5.3 [facility] Comment on above: Performed By: #### C KWASI, PT, BMP #### [facility] [employer] [address] [place] [address] Pantograph Setter: Oh Jean MD Sodium [Moles/Vol] 137 mmol/L Normal 135-144 [facility] Comment on above: Performed By: #### C KWASI, PT, BMP #### [facility] [employer] [address] [place] [address] Pantograph Setter: Oh Jean MD Urea nitrogen [Mass/Vol] 37 mg/dL High 8-23 [facility] Comment on above: Performed By: #### C BC, PT, BMP #### [facility] [employer] [address] [place] [phone] Pantograph Setter: Oh Jean MD BUN/CRE Ratio NOT REPORTED Normal 9-20 [facility] Comment on above: Performed By: #### C BC, PT, BMP #### [facility] [employer] [address] [place] [phone] Pantograph Setter: Oh Jean MD Staging: NOT REPORTED Normal [facility] Comment on above: Performed By: #### C BC, PT, BMP #### [facility] [employer] [address] [place] [address] Pantograph Setter: Oh Jean MD CBCon 11-09-2020 Erythrocyte distribution width (RBC) [Ratio] 13.8 % Normal 11.8-14.4 [facility] Comment on above: Performed By: #### C BC, PT, BMP #### [facility] [address] [place] [address] Pantograph Setter: Oh Jean MD Hematocrit (Bld) [Volume fraction] 44.6 % Normal 40.7-50.3 [facility] Comment on above: Performed By: #### C BC, PT, BMP #### [facility] [employer] [address] [place] [address] Pantograph Setter: Oh Jean MD Hemoglobin (Bld) [Mass/Vol] 14.7 g/dL Normal 13.0-17.0 [facility] Comment on above: Performed By: #### C BC, PT, BMP #### [facility] [address] [place] [address] Pantograph Setter: Oh Jean MD MCH (RBC) [Entitic mass] 30.4 pg Normal 25.2-33.5 [facility] Comment on above: Performed By: #### C BC, PT, BMP #### [employer] [address] [place] [address] Pantograph Setter: Oh Jean MD MCHC (RBC) [Mass/Vol] 33.0 g/dL Normal 28.4-34.8 [facility] Comment on above: Performed By: #### C BC, PT, BMP #### [address] [address] Pantograph Setter: Oh Jean MD MCV (RBC) [Entitic vol] 92.3 fL Normal 82.6-102.9 [facility] Comment on above: Performed By: #### C BC, PT, BMP #### [address] [address] Pantograph Setter: Oh Jean MD NRBC Automated 0.0 per 100 WBC Normal 0.0 [facility] Comment on above: Performed By: #### C BC, PT, BMP #### [address] [address] Pantograph Setter: Oh Jean MD Platelet mean volume (Bld) [Entitic vol] 10.1 fL Normal 8.1-13.5 [facility] Comment on above: Performed By: #### C BC, PT, BMP #### [address] [address] Pantograph Setter: Oh Jean MD Platelets (Bld) [#/Vol] 252 10*3/uL Normal 138-453 [facility] Comment on above: Performed By: #### C BC, PT, BMP #### [address] [address] Pantograph Setter: Oh Jean MD RBC (Bld) [#/Vol] 4.83 10*6/uL Normal 4.21-5.77 [facility] Comment on above: Performed By: #### C BC, PT, BMP #### [address] [address] Pantograph Setter: Oh Jean MD WBC (Bld) [#/Vol] 9.0 10*3/uL Normal 3.5-11.3 [facility] Comment on above: Performed By: #### C BC, PT, BMP #### [email or web address] [address] [place] [address] Pantograph Setter: Oh Jean MD Hematocrit (Bld) [Volume fraction] 44.6 % 40.7 - 50.3 % [employer] Phone: Hemoglobin.gastrointe stinal spec 1 Ql (Stl) 14.7 g/dL 13.0 - 17.0 g/dL [employer] Phone: MCH (RBC) [Entitic mass] 30.4 pg 25.2 - 33.5 pg [employer] Phone: MCHC (RBC) [Mass/Vol] 33.0 g/dL 28.4 - 34.8 g/dL [employer] Phone: MCV (RBC) [Entitic vol] 92.3 fL 82.6 - 102.9 fL [employer] Phone: Platelet distribution width (Bld) [Ratio] 13.8 % 11.8 - 14.4 % [employer] Phone: Platelet mean volume (Bld) [Entitic vol] 10.1 fL 8.1 - 13.5 fL [employer] Phone: Platelets (Bld) [#/Vol] 252 10*3/uL [employer] Phone: RBC (Bld) [#/Vol] 4.83 10*6/uL 4.21 - 5.7 7 m/uL [employer] Phone: WBC (Bld) [#/Vol] 9.0 10*3/uL [employer] Phone: WBC (Bld) [#/Vol] 0.0 10*3/uL 0.0 per 10 0 WBC [employer] Phone: PTon 11-09-2020 INR Coag (PPP) [Relative time] 2.6 {INR} Normal [facility] Comment on above: Result Comment: Therapeutic Range: Moderate Anticoagulant Intensity: INR = 2.0-3.0 High Anticoagulant Intensity: INR = 2.5-3.5 Performed By: #### C BC, PT, BMP #### [email or web address] [address] [place], [place] [phone] Pantograph Setter: Oh Jean MD PT Coag (PPP) [Time] 25.5 s High 9.1-12.3 [facility] Comment on above: Performed By: #### C BC, PT, BMP #### [email or web address] [address] [place], [place] [phone] Pantograph Setter: Oh Jean MD Protime-INRon 11-09-2020 INR Coag (Bld) [Relative time] 2.6 {INR} [employer] Phone: Comment on above: Therapeutic Range: Moderate Anticoagulant Intensity: INR = 2.0-3.0 High Anticoagulant Intensity: INR = 2.5-3.5 Interpretation and review of laboratory results Abnormal [employer] Phone: PT Coag (PPP) [Time] 25.5 s High [employer] Phone: Consent for COVID Vaccineon 11-07-2020 SARS-CoV-2 (COVID-19) RNA NEFTALI+probe Ql (Unsp spec) [id number]#[id number]: 127 Normal [facility] US GALLBLADDER RUQon 021 1. Exam [...] small amount of sludge within the gallbladder. [employer] Phone: EXAM: US GALLBLADDER RUQ HISTORY: Reason [...] was noted in the right upper quadrant. [employer] Phone: Andrés, pn Incoming Radiant Results From [facility] - 11/02/2020 9:51 AM EDT EXAM: US [...] small amount of sludge within the gallbladder. [employer] Phone: Consent for COVID Vaccineon 10-17-2020 SARS-CoV-2 (COVID-19) RNA NEFTALI+probe Ql (Unsp spec) [id number] :127 Normal [facility] Consent for Treatmenton 10-05 Consent for Treatment [id number] :127 Normal [facility] Coding Summary.on 10-14-2020 Coding Summary. CODING DATE: 021 FINAL [facility] STATUS: PAYOR: [facility] DESCRIPTION 1492 [employer] - Level [...] Oliva Date Saved: 10/14/2020 02:04 pm Normal [facility] CBC Auto Differentialon 08-07 Basophils (Bld) [#/Vol] 0.00 10*3/uL [place] Basophils/100 WBC (Bld) 1 % 0 - 2 % [place] Differential Type YES [place] Eosinophils (Bld) [#/Vol] 0.30 10*3/uL [place] Eosinophils/100 WBC (Bld) 3 % 0 - 5 % [place] Erythrocyte distribution width (RBC) [Ratio] 14.9 % 12.1 - 15.2 % [place] Hematocrit (Bld) [Volume fraction] 44.9 % 41 - 53 % [place] Hemoglobin (Bld) [Mass/Vol] 15.0 g/dL 13.5 - 17.5 g/dL [place] Interpretation and review of laboratory results Abnormal [place] Lymphocytes (Bld) [#/Vol] 1.70 10*3/uL [place] Lymphocytes/100 WBC (Bld) 19 % 13 - 44 % [place] MCH (RBC) [Entitic mass] 30.4 pg 26 - 34 pg [place] MCHC (RBC) [Mass/Vol] 33.4 g/dL 31 - 3 7 g/dL [place] MCV (RBC) [Entitic vol] 91.0 fL 80 - 100 fL [place] Monocytes (Bld) [#/Vol] 1.00 10*3/uL [place] Monocytes/100 WBC (Bld) 11 % High 5 - 9 % [place] Platelet mean volume (Bld) [Entitic vol] NOT REPORTED 6 - 12 fL [place] Platelets (Bld) [#/Vol] 237 10*3/uL [place] Platelets (Bld) [#/Vol] NOT REPORTED [place] RBC (Bld) [#/Vol] 4.94 10*6/uL 4.5 - 5.9 m/uL [place] RBC morphology finding Nom (Bld) NOT REPORTED [place] Segmented neutrophils/100 WBC (Bld) 66 % 39 - 75 % [place] Segs Absolute 6.00 [place] WBC (Bld) [#/Vol] 8.9 10*3/uL [place] WBC (Bld) [#/Vol] NOT REPORTED per 100 WBC [place] WBC Morphology NOT REPORTED [place] Comprehensive Metabolic Pane yonis 08-25-2020 Albumin [Mass/Vol] 4.2 g/dL 3.5 - 5.2 g/dL [place] Albumin/Globulin [Mass ratio] NOT REPORTED [place] ALP [Catalytic activity/Vol] 64 U/L 40 - 129 U/L [place] ALT [Catalytic activity/Vol] 16 U/L 5 - 41 U/L [place] Anion gap [Moles/Vol] 10 mmol/L 9 - 17 mmol/L [place] AST [Catalytic activity/Vol] 21 U/L <40 [place] Bilirubin Ql (U) 0.92 mg/dL 0.3 - 1.2 mg/dL [place] Bun/Cre Ratio 22 High [place] Calcium [Mass/Vol] 10.7 mg/dL High 8.6 - 10. 4 mg/dL [place] Chloride [Moles/Vol] 102 mmol/L 98 - 10 7 mmol/L [place] CO2 [Moles/Vol] 27 mmol/L 20 - 31 mmol/L [place] Creatinine [Mass/Vol] 1.78 mg/dL High 0.7 - 1.2 mg/dL [place] GFR 47 mL/min Low >60 [place] GFR Non- 39 mL/min Low >60 [place] GFR/1.73 sq M predicted among non-blacks MDRD (S/P/Bld) [Vol rate/Area] [place] Comment on above: Average GFR for 60-6 9 years old: 85 mL/min/1.73sq m Chronic Kidney Disease: <60 mL/min/1.73sq m Kidney failure: <15 mL/min/1.73sq m eGFR calculated using average adult body mass. Additional eGFR calculator available at: http://www.[employer]/multiple_crcl_2012.htm GFR/1.73 sq M predicted among non-blacks MDRD (S/P/Bld) [Vol rate/Area] NOT REPORTED [place] Glucose [Mass/Vol] 89 mg/dL 70 - 99 mg/dL [place] Interpretation and review of laboratory results Abnormal [place] Potassium [Moles/Vol] 5.2 mmol/L 3.7 - 5.3 mmol/L [place] Protein [Mass/Vol] 7.5 g/dL 6.4 - 8.3 g/dL [place] Sodium [Moles/Vol] 139 mmol/L 135 - 144 mmol/L [place] Urea nitrogen [Mass/Vol] 39 mg/dL High 8 - 23 mg/dL [place] Lipid Panelon 08-25-2020 Cholesterol [Mass/Vol] 126 mg/dL <200 [place] Comment on above: Cholesterol Guidelines: <200 Desirable 200-240 Borderline >240 Undesirable Cholesterol in HDL [Mass/Vol] 34 mg/dL Low >40 [place] Comment on above: HDL Guidelines: <40 Undesirable 40-59 Borderline >59 Desirable Cholesterol in LDL [Mass/Vol] 59 mg/dL 0 - 130 mg/dL [place] Comment on above: LDL Guidelines: <100 Desirable 100-129 Near to/above Desirable 130-159 Borderline >159 Undesirable Direct (measured) LDL and calculated LDL are not interchangeable tests. Cholesterol in VLDL [Mass/Vol] NOT REPORTED High 1 - 30 mg/dL [place] Cholesterol.total/Cho lesterol in HDL [Mass ratio] 3.7 {ratio} <5 [place] Interpretation and review of laboratory results Abnormal [place] Triglyceride [Mass/Vol] 166 mg/dL High <150 [place] Comment on above: Triglyceride Guidelines: <150 Desirable 150-199 Borderline 200-499 High >499 Very high Based on AHA Guidelines for fasting triglyceride, May 2012. Magnesiumon 08-25-2020 Magnesium [Mass/Vol] 2.2 mg/dL 1.6 - 2 .6 mg/dL [place] Otheron 08-25-2020 Immature granulocytes (Bld) [#/Vol] NOT REPORTED [place] Patient Fasting?on 1 Patient Fasting? yes [place] TSH with Reflexon 08-25-2020 TSH Qn 2.54 m[IU]/L [place] Vitamin D 25 Hydroxyon 08-25 Vit D, 25-Hydroxy 52.3 ng/mL 30 - 100 ng/mL [place] Comment on above: Reference Range: Vitamin D status Range Deficiency <20 ng/mL Mild Deficiency 20-30 ng/mL Sufficiency 30-100 ng/mL Toxicity >100 ng/mL XR CHEST (2 VW)on 08-25-2020 Pacemaker defibrilla tor with no acute change compared to 02/26/2019, 10/19/2017. [place] EXAM: XR CHEST (2 VW ) HISTORY: Reason for exam:->htn 64-year-old male COMPARISON: 02/26/2019 chest, 10/19/2017. TECHNIQUE: 2 views chest FINDINGS: Single lead pacemaker defibrillator with the tip in the right ventricle unchanged. Heart size upper normal, stable. Lungs clear. [place] Andrés, Mhpn Incoming Radiant Results From [facility] - 08/25/2020 10:17 AM EST EXAM: XR CHEST (2 VW) HISTORY: Reason for exam:->htn 64-year-old male COMPARISON: 02/26/2019 chest, 10/19/2017. TECHNIQUE: 2 views chest FINDINGS: Single lead pacemaker defibrillator with the tip in the right ventricle unchanged. Heart size upper normal, stable. Lungs clear. IMPRESSION: Pacemaker defibrillator with no acute change compared to 02/26/2019, 10/19/2017. [place] Comprehensive Metabolic Pane yonis 08-14-2020 Albumin [Mass/Vol] 4.7 g/dL 3.5 - 5.2 g/dL [place] Albumin/Globulin [Mass ratio] NOT REPORTED [place] ALP [Catalytic activity/Vol] 61 U/L 40 - 129 U/L [place] ALT [Catalytic activity/Vol] 20 U/L 5 - 41 U/L [place] Anion gap [Moles/Vol] 11 mmol/L 9 - 17 mmol/L [place] AST [Catalytic activity/Vol] 20 U/L <40 [place] Bilirubin Ql (U) 1.55 mg/dL High 0.3 - 1.2 mg/dL [place] Bun/Cre Ratio 26 High [place] Calcium [Mass/Vol] 9.7 mg/dL 8.6 - 10. 4 mg/dL [place] Chloride [Moles/Vol] 102 mmol/L 98 - 10 7 mmol/L [place] CO2 [Moles/Vol] 25 mmol/L 20 - 31 mmol/L [place] Creatinine [Mass/Vol] 1.7 mg/dL High 0.7 - 1.2 mg/dL [place] GFR 50 mL/min Low >60 [place] GFR Non- 41 mL/min Low >60 [place] GFR/1.73 sq M predicted among non-blacks MDRD (S/P/Bld) [Vol rate/Area] [place] Comment on above: Average GFR for 60-6 9 years old: 85 mL/min/1.73sq m Chronic Kidney Disease: <60 mL/min/1.73sq m Kidney failure: <15 mL/min/1.73sq m eGFR calculated using average adult body mass. Additional eGFR calculator available at: http://www.[employer]/multiple_crcl_2012.htm GFR/1.73 sq M predicted among non-blacks MDRD (S/P/Bld) [Vol rate/Area] NOT REPORTED [place] Glucose [Mass/Vol] 97 mg/dL 70 - 99 mg/dL [place] Interpretation and review of laboratory results Abnormal [place] Potassium [Moles/Vol] 4.9 mmol/L 3.7 - 5.3 mmol/L [place] Protein [Mass/Vol] 8.1 g/dL 6.4 - 8.3 g/dL [place] Sodium [Moles/Vol] 138 mmol/L 135 - 144 mmol/L [place] Urea nitrogen [Mass/Vol] 45 mg/dL High 8 - 23 mg/dL [place] Hemoglobin A1Con 08-14-2020 Glucose [Mass/Vol] 151 mg/dL [place] Comment on above: The ADA and AACC rec ommend providing the estimated average glucose result to permit better patient understanding of their HBA1c result. HbA1c (Bld) [Mass fraction] 6.9 % High 4 - 6 % [place] Interpretation and review of laboratory results Abnormal [place] Protime-INRon 08-14-2020 INR Coag (PPP) [Relative time] 2.8 {INR} [place] Comment on above: Non-therapeutic Range: INR = 0.9-1.2 Therapeutic Range: Moderate Anticoagulant Intensity: INR = 2.0-3.0 High Anticoagulant Intensity: INR = 2.5-3.5 Interpretation and review of laboratory results Abnormal [place] PT Coag (PPP) [Time] 28.6 s High [place] Protime-INRon 05-14-2020 INR Coag (PPP) [Relative time] 2.7 {INR} [place] Protime-INRon 04-02-2020 INR Coag (PPP) [Relative time] 2.8 {INR} [place] CBC Auto Differentialon 02-05 Basophils (Bld) [#/Vol] 0.10 10*3/uL [place] Basophils/100 WBC (Bld) 1 % 0 - 2 % [place] Differential Type YES [place] Eosinophils (Bld) [#/Vol] 0.30 10*3/uL [place] Eosinophils/100 WBC (Bld) 3 % 0 - 5 % [place] Erythrocyte distribution width (RBC) [Ratio] 14.8 % 12.1 - 15.2 % [place] Hematocrit (Bld) [Volume fraction] 44.7 % 41 - 53 % [place] Hemoglobin (Bld) [Mass/Vol] 15.2 g/dL 13.5 - 17.5 g/dL [place] Interpretation and review of laboratory results Abnormal [place] Lymphocytes (Bld) [#/Vol] 1.70 10*3/uL [place] Lymphocytes/100 WBC (Bld) 17 % 13 - 44 % [place] MCH (RBC) [Entitic mass] 31.4 pg 26 - 34 pg [place] MCHC (RBC) [Mass/Vol] 34.0 g/dL 31 - 3 7 g/dL [place] MCV (RBC) [Entitic vol] 92.1 fL 80 - 100 fL [place] Monocytes (Bld) [#/Vol] 1.00 10*3/uL [place] Monocytes/100 WBC (Bld) 10 % High 5 - 9 % [place] Platelet mean volume (Bld) [Entitic vol] NOT REPORTED 6 - 12 fL [place] Platelets (Bld) [#/Vol] 208 10*3/uL [place] Platelets (Bld) [#/Vol] NOT REPORTED [place] RBC (Bld) [#/Vol] 4.85 10*6/uL 4.5 - 5.9 m/uL [place] RBC morphology finding Nom (Bld) NOT REPORTED [place] Segmented neutrophils/100 WBC (Bld) 69 % 39 - 75 % [place] Segs Absolute 7.10 [place] WBC (Bld) [#/Vol] NOT REPORTED per 100 WBC [place] WBC (Bld) [#/Vol] 10.1 10*3/uL [place] WBC Morphology NOT REPORTED [place] Comprehensive Metabolic Pane yonis 02-26-2020 Albumin [Mass/Vol] 4.3 g/dL 3.5 - 5.2 g/dL [place] Albumin/Globulin [Mass ratio] NOT REPORTED [place] ALP [Catalytic activity/Vol] 55 U/L 40 - 129 U/L [place] ALT [Catalytic activity/Vol] 21 U/L 5 - 41 U/L [place] Anion gap [Moles/Vol] 11 mmol/L 9 - 17 mmol/L [place] AST [Catalytic activity/Vol] 23 U/L <40 [place] Bilirubin Ql (U) 1.35 mg/dL High 0.3 - 1.2 mg/dL [place] Bun/Cre Ratio 19 [place] Calcium [Mass/Vol] 10.5 mg/dL High 8.6 - 10. 4 mg/dL [place] Chloride [Moles/Vol] 101 mmol/L 98 - 10 7 mmol/L [place] CO2 [Moles/Vol] 26 mmol/L 20 - 31 mmol/L [place] Creatinine [Mass/Vol] 1.67 mg/dL High 0.7 - 1.2 mg/dL [place] GFR 51 mL/min Low >60 [place] GFR Non- 42 mL/min Low >60 [place] GFR/1.73 sq M predicted among non-blacks MDRD (S/P/Bld) [Vol rate/Area] [place] Comment on above: Average GFR for 60-6 9 years old: 85 mL/min/1.73sq m Chronic Kidney Disease: <60 mL/min/1.73sq m Kidney failure: <15 mL/min/1.73sq m eGFR calculated using average adult body mass. Additional eGFR calculator available at: http://www.[employer]/saambaa_crcl_2012.htm GFR/1.73 sq M predicted among non-blacks MDRD (S/P/Bld) [Vol rate/Area] NOT REPORTED [place] Glucose [Mass/Vol] 91 mg/dL 70 - 99 mg/dL [place] Interpretation and review of laboratory results Abnormal [place] Potassium [Moles/Vol] 5.0 mmol/L 3.7 - 5.3 mmol/L [place] Protein [Mass/Vol] 7.8 g/dL 6.4 - 8.3 g/dL [place] Sodium [Moles/Vol] 138 mmol/L 135 - 144 mmol/L [place] Urea nitrogen [Mass/Vol] 31 mg/dL High 8 - 23 mg/dL [place] Lipid Panelon 02-26-2020 Cholesterol [Mass/Vol] 131 mg/dL <200 [place] Comment on above: Cholesterol Guidelines: <200 Desirable 200-240 Borderline >240 Undesirable Cholesterol in HDL [Mass/Vol] 33 mg/dL Low >40 [place] Comment on above: HDL Guidelines: <40 Undesirable 40-59 Borderline >59 Desirable Cholesterol in LDL [Mass/Vol] 62 mg/dL 0 - 130 mg/dL [place] Comment on above: LDL Guidelines: <100 Desirable 100-129 Near to/above Desirable 130-159 Borderline >159 Undesirable Direct (measured) LDL and calculated LDL are not interchangeable tests. Cholesterol in VLDL [Mass/Vol] NOT REPORTED High 1 - 30 mg/dL [place] Cholesterol.total/Cho lesterol in HDL [Mass ratio] 4 {ratio} <5 [place] Interpretation and review of laboratory results Abnormal [place] Triglyceride [Mass/Vol] 182 mg/dL High <150 [place] Comment on above: Triglyceride Guidelines: <150 Desirable 150-199 Borderline 200-499 High >499 Very high Based on AHA Guidelines for fasting triglyceride, May 2012. Magnesiumon 02-26-2020 Magnesium [Mass/Vol] 2.1 mg/dL 1.6 - 2 .6 mg/dL [place] Otheron 02-26-2020 Immature granulocytes (Bld) [#/Vol] NOT REPORTED [place] Patient Fasting?on 0 Patient Fasting? YES [place] TSH with Reflexon 02-26-2020 TSH Qn 2.56 m[IU]/L [place] Vitamin D 25 Hydroxyon 02-25 Vit D, 25-Hydroxy 54.9 ng/mL 30 - 100 ng/mL [place] Comment on above: Reference Range: Vitamin D status Range Deficiency <20 ng/mL Mild Deficiency 20-30 ng/mL Sufficiency 30-100 ng/mL Toxicity >100 ng/mL Protime-INRon 02-20-2020 INR Coag (PPP) [Relative time] 2.8 {INR} [place] Comprehensive Metabolic Pane yonis 01-21-2020 Albumin [Mass/Vol] 4.2 g/dL 3.5 - 5.2 g/dL [place] Albumin/Globulin [Mass ratio] NOT REPORTED [place] ALP [Catalytic activity/Vol] 58 U/L 40 - 129 U/L [place] ALT [Catalytic activity/Vol] 22 U/L 5 - 41 U/L [place] Anion gap [Moles/Vol] 10 mmol/L 9 - 17 mmol/L [place] AST [Catalytic activity/Vol] 21 U/L <40 [place] Bilirubin Ql (U) 0.80 mg/dL 0.3 - 1.2 mg/dL [place] Bun/Cre Ratio 22 [place] Calcium [Mass/Vol] 10.1 mg/dL 8.6 - 10. 4 mg/dL [place] Chloride [Moles/Vol] 104 mmol/L 98 - 10 7 mmol/L [place] CO2 [Moles/Vol] 26 mmol/L 20 - 31 mmol/L [place] Creatinine [Mass/Vol] 1.85 mg/dL High 0.7 - 1.2 mg/dL [place] GFR 45 mL/min Low >60 [place] GFR Non- 37 mL/min Low >60 [place] GFR/1.73 sq M predicted among non-blacks MDRD (S/P/Bld) [Vol rate/Area] [place] Comment on above: Average GFR for 60-6 9 years old: 85 mL/min/1.73sq m Chronic Kidney Disease: <60 mL/min/1.73sq m Kidney failure: <15 mL/min/1.73sq m eGFR calculated using average adult body mass. Additional eGFR calculator available at: http://www.[employer]/multiple_crcl_2012.htm GFR/1.73 sq M predicted among non-blacks MDRD (S/P/Bld) [Vol rate/Area] NOT REPORTED [place] Glucose [Mass/Vol] 79 mg/dL 70 - 99 mg/dL [place] Interpretation and review of laboratory results Abnormal [place] Potassium [Moles/Vol] 4.7 mmol/L 3.7 - 5.3 mmol/L [place] Protein [Mass/Vol] 7.5 g/dL 6.4 - 8.3 g/dL [place] Sodium [Moles/Vol] 140 mmol/L 135 - 144 mmol/L [place] Urea nitrogen [Mass/Vol] 40 mg/dL High 8 - 23 mg/dL [place] Hemoglobin A1Con 01-21-2020 Glucose [Mass/Vol] 140 mg/dL [place] Comment on above: The ADA and AACC rec ommend providing the estimated average glucose result to permit better patient understanding of their HBA1c result. HbA1c (Bld) [Mass fraction] 6.5 % High 4 - 6 % [place] Interpretation and review of laboratory results Abnormal [place] Lipid Panelon 01-21-2020 Cholesterol [Mass/Vol] 127 mg/dL <200 [place] Comment on above: Cholesterol Guidelines: <200 Desirable 200-240 Borderline >240 Undesirable Cholesterol in HDL [Mass/Vol] 30 mg/dL Low >40 [place] Comment on above: HDL Guidelines: <40 Undesirable 40-59 Borderline >59 Desirable Cholesterol in LDL [Mass/Vol] 57 mg/dL 0 - 130 mg/dL [place] Comment on above: LDL Guidelines: <100 Desirable 100-129 Near to/above Desirable 130-159 Borderline >159 Undesirable Direct (measured) LDL and calculated LDL are not interchangeable tests. Cholesterol in VLDL [Mass/Vol] NOT REPORTED High 1 - 30 mg/dL [place] Cholesterol.total/Cho lesterol in HDL [Mass ratio] 4.2 {ratio} <5 [place] Interpretation and review of laboratory results Abnormal [place] Triglyceride [Mass/Vol] 201 mg/dL High <150 [place] Comment on above: Triglyceride Guidelines: <150 Desirable 150-199 Borderline 200-499 High >499 Very high Based on AHA Guidelines for fasting triglyceride, May 2012. Patient Fasting?on 0 Patient Fasting? yes [place] Protime-INRon 01-09-2020 INR Coag (PPP) [Relative time] 2.6 {INR} [place] Protime-INRon 10-17-2019 INR Coag (PPP) [Relative time] 2.6 {INR} [place] Basic Metabolic Panelon Anion gap [Moles/Vol] 12 mmol/L 9 - 17 mmol/L [facility] Work Phone: Bun/Cre Ratio 23 High [facility] Work Phone: Calcium [Mass/Vol] 10.6 mg/dL High 8.6 - 10. 4 mg/dL [employer] Phone: Chloride [Moles/Vol] 104 mmol/L 98 - 10 7 mmol/L [employer] Phone: CO2 [Moles/Vol] 24 mmol/L 20 - 31 mmol/L [employer] Phone: Creatinine [Mass/Vol] 1.65 mg/dL High 0.7 - 1.2 mg/dL [employer] Phone: GFR 51 mL/min Low >60 [place] Phone: GFR Non- 42 mL/min Low >60 [employer] Phone: GFR/1.73 sq M predicted among non-blacks MDRD (S/P/Bld) [Vol rate/Area] NOT REPORTED [employer] Phone: GFR/1.73 sq M predicted among non-blacks MDRD (S/P/Bld) [Vol rate/Area] [employer] Phone: Comment on above: Average GFR for 60-6 9 years old: 85 mL/min/1.73sq m Chronic Kidney Disease: <60 mL/min/1.73sq m Kidney failure: <15 mL/min/1.73sq m eGFR calculated using average adult body mass. Additional eGFR calculator available at: http://www.[employer]/multiple_crcl_2012.htm Glucose [Mass/Vol] 101 mg/dL High 70 - 99 mg/dL [employer] Phone: Interpretation and review of laboratory results Abnormal [employer] Phone: Potassium [Moles/Vol] 5.0 mmol/L 3.7 - 5.3 mmol/L [employer] Phone: Sodium [Moles/Vol] 140 mmol/L 135 - 144 mmol/L [employer] Phone: Urea nitrogen [Mass/Vol] 38 mg/dL High 8 - 23 mg/dL [employer] Phone: Basic Metabolic PanelOrdered By: Rafa Nicole on 09-02-2019 Anion gap [Moles/Vol] 14 mmol/L 9 - 17 mmol/L [employer] Phone: Bun/Cre Ratio 27 High [email or web address] Work Phone: Calcium [Mass/Vol] 11.0 mg/dL High 8.6 - 10. 4 mg/dL [employer] Phone: Chloride [Moles/Vol] 100 mmol/L 98 - 10 7 mmol/L [employer] Phone: CO2 [Moles/Vol] 24 mmol/L 20 - 31 mmol/L [employer] Phone: Creatinine [Mass/Vol] 1.9 mg/dL High 0.7 - 1.2 mg/dL [employer] Phone: GFR 44 mL/min Low >60 [place] Phone: GFR Comment [employer] Phone: Comment on above: Average GFR for 60-6 9 years old: 85 mL/min/1.73sq m Chronic Kidney Disease: <60 mL/min/1.73sq m Kidney failure: <15 mL/min/1.73sq m eGFR calculated using average adult body mass. Additional eGFR calculator available at: http://www.[employer].com/multiple_crcl_2012.htm GFR Non- 36 mL/min Low >60 [employer] Phone: GFR Staging NOT REPORTED [email or web address] Work Phone: Glucose [Mass/Vol] 117 mg/dL High 70 - 99 mg/dL [employer] Phone: Interpretation and review of laboratory results Abnormal [employer] Phone: Potassium [Moles/Vol] 5.5 mmol/L High 3.7 - 5.3 mmol/L [employer] Phone: Sodium [Moles/Vol] 138 mmol/L 135 - 144 mmol/L [employer] Phone: Urea nitrogen [Mass/Vol] 51 mg/dL High 8 - 23 mg/dL [employer] Phone: Protime-INROrdered By: Crispin paetl Provider on 09-02-2019 INR Coag (PPP) [Relative time] 2.5 {INR} [employer] Phone: NM Cardiac Stress Test Nucle ar ImagingOrdered By: Rafa Nicole on 08-19-2019 Radiology exam is complete. No Radiologist dictation. Please follow up with ordering provider. [employer] Phone: Basic Metabolic PanelOrdered By: Eloina Pat on 08-14-2019 Anion gap [Moles/Vol] 13 mmol/L 9 - 17 mmol/L [employer] Phone: Bun/Cre Ratio 20 [email or web address] Work Phone: Calcium [Mass/Vol] 10.4 mg/dL 8.6 - 10. 4 mg/dL [employer] Phone: Chloride [Moles/Vol] 103 mmol/L 98 - 10 7 mmol/L [employer] Phone: CO2 [Moles/Vol] 26 mmol/L 20 - 31 mmol/L [employer] Phone: Creatinine [Mass/Vol] 1.69 mg/dL High 0.7 - 1.2 mg/dL [employer] Phone: GFR 50 mL/min Low >60 [place] Phone: GFR Comment [employer] Phone: Comment on above: Average GFR for 60-6 9 years old: 85 mL/min/1.73sq m Chronic Kidney Disease: <60 mL/min/1.73sq m Kidney failure: <15 mL/min/1.73sq m eGFR calculated using average adult body mass. Additional eGFR calculator available at: http://www.[employer]/multiple_crcl_2012.htm GFR Non- 41 mL/min Low >60 [facility] Work Phone: GFR Staging NOT REPORTED [facility] Work Phone: Glucose [Mass/Vol] 86 mg/dL 70 - 99 mg/dL [facility] Work Phone: Potassium [Moles/Vol] 4.2 mmol/L 3.7 - 5.3 mmol/L [facility] Work Phone: Sodium [Moles/Vol] 142 mmol/L 135 - 144 mmol/L [facility] Work Phone: Urea nitrogen [Mass/Vol] 34 mg/dL High 8 - 23 mg/dL [facility] Work Phone: CBC WITH AUTO DIFFERENTIALOr dered By: Eloina Pat on 08-14-2019 Absolute Eos # 0.20 [facility] Work Phone: Absolute Immature Granulocyte NOT REPORTED [facility] [employer] Work Phone: Absolute Lymph # 1.40 [facility] Work Phone: Absolute [place] # 0.80 [facility] Work Phone: Basophils (Bld) [#/Vol] 0.00 10*3/uL [facility] Work Phone: Basophils/100 WBC (Bld) 0 % 0 - 2 % [facility] Work Phone: Differential Type YES [facility] Work Phone: Eosinophils/100 WBC (Bld) 2 % 0 - 5 % [facility] Work Phone: Erythrocyte distribution width (RBC) [Ratio] 15.0 % 12.1 - 15.2 % [employer] Work Phone: Hematocrit (Bld) [Volume fraction] 44.2 % 41 - 53 % [employer] Phone: Hemoglobin (Bld) [Mass/Vol] 14.4 g/dL 13.5 - 17.5 g/dL [employer] Phone: Immature Granulocytes NOT REPORTED 0 % M [facility] Work Phone: Lymphocytes/100 WBC (Bld) 15 % 13 - 44 % [employer] Phone: MCH (RBC) [Entitic mass] 29.9 pg 26 - 34 pg [employer] Phone: MCHC (RBC) [Mass/Vol] 32.7 g/dL 31 - 3 7 g/dL [employer] Phone: MCV (RBC) [Entitic vol] 91.6 fL 80 - 100 fL [employer] Work Phone: Monocytes/100 WBC (Bld) 9 % 5 - 9 % [employer] Phone: MPV NOT REPORTED 6 - 12 fL [employer] Work Phone: NRBC Automated NOT REPORTED per 100 WBC [facility] Work Phone: Platelet Estimate NOT REPORTED [employer] Phone: Platelets (Bld) [#/Vol] 248 10*3/uL [facility] Work Phone: RBC (Bld) [#/Vol] 4.82 10*6/uL 4.5 - 5.9 m/uL [employer] Phone: RBC morphology finding Nom (Bld) NOT REPORTED [email or web address] Phone: Segmented neutrophils/100 WBC (Bld) 74 % 39 - 75 % [facility] Work Phone: Segs Absolute 6.40 [employer] [facility] Work Phone: WBC (Bld) [#/Vol] 8.8 10*3/uL [employer] Phone: WBC Morphology NOT REPORTED [employer] Work Phone: Hepatic Function PanelOrdere d By: Eloina Pat on 08-14-2019 Albumin [Mass/Vol] 4.4 g/dL 3.5 - 5.2 g/dL [employer] Phone: Albumin/Globulin Ratio NOT REPORTED [employer] Phone: ALP [Catalytic activity/Vol] 66 U/L 40 - 129 U/L [employer] Phone: ALT [Catalytic activity/Vol] 24 U/L 5 - 41 U/L [employer] Phone: AST [Catalytic activity/Vol] 25 U/L <40 [employer] Phone: Bilirubin [Mass/Vol] 1.92 mg/dL High 0.3 - 1 .2 mg/dL [employer] Phone: Bilirubin, Indirect 1.6 mg/dL High 0 - 1 mg/dL [employer] Phone: Bilirubin.indirect [Mass/Vol] 0.32 mg/dL High <0.31 [employer] Phone: Globulin NOT REPORTED 1.5 - 3.8 g/dL [employer] Phone: Protein [Mass/Vol] 7.7 g/dL 6.4 - 8.3 g/dL [employer] Phone: No Panel InformationOrdered By: Eloina Pat on 08-14-2019 Interpretation and review of laboratory results Abnormal [employer] Phone: Basic Metabolic PanelOrdered By: Eloina Pat on 08-12-2019 Anion gap [Moles/Vol] 13 mmol/L 9 - 17 mmol/L [employer] Phone: Bun/Cre Ratio 19 [employer] Phone: Calcium [Mass/Vol] 10.5 mg/dL High 8.6 - 10. 4 mg/dL [employer] Phone: Chloride [Moles/Vol] 103 mmol/L 98 - 10 7 mmol/L [employer] Phone: CO2 [Moles/Vol] 24 mmol/L 20 - 31 mmol/L [employer] Phone: Creatinine [Mass/Vol] 1.68 mg/dL High 0.7 - 1.2 mg/dL [employer] Phone: GFR 51 mL/min Low >60 [employer] Phone: GFR Comment [employer] Phone: Comment on above: Average GFR for 60-6 9 years old: 85 mL/min/1.73sq m Chronic Kidney Disease: <60 mL/min/1.73sq m Kidney failure: <15 mL/min/1.73sq m eGFR calculated using average adult body mass. Additional eGFR calculator available at: http://www.[employer]/multiple_crcl_2012.htm GFR Non- 42 mL/min Low >60 [employer] Phone: GFR Staging NOT REPORTED [email or web address] Work Phone: Glucose [Mass/Vol] 92 mg/dL 70 - 99 mg/dL [employer] Phone: Potassium [Moles/Vol] 4.7 mmol/L 3.7 - 5.3 mmol/L [employer] Phone: Sodium [Moles/Vol] 140 mmol/L 135 - 144 mmol/L [employer] Phone: Urea nitrogen [Mass/Vol] 32 mg/dL High 8 - 23 mg/dL [employer] Phone: Brain Natriuretic PeptideOrd ered By: Eloina Adilia on 08-12-2019 BNP Interpretation Pro-BNP Reference Range: [employer] Phone: Comment on above: Rule Out: <300 [place] Zone: Age <50 300-450 Age 50-75 300-900 Age >75 300-1800 Usually represents mild to moderate HF but other cardiopulmonary causes cannot be ruled out. Rule In: Age <50 >450 Age 50-75 >900 Age >75 >1800 Natriuretic peptide B (Bld) [Mass/Vol] 3728 pg/mL High <300 [facility] Work Phone: Comment on above: Pro-BNP results william ot be compared to BNP results. CBC Auto DifferentialOrdered By: Eloina Adilia on 08-12-2019 Absolute Eos # 0.10 [employer] [facility] Work Phone: Absolute Immature Granulocyte NOT REPORTED [facility] Work Phone: Absolute Lymph # 1.30 [employer] Work Phone: Absolute [place] # 0.70 [facility] Work Phone: Basophils (Bld) [#/Vol] 0.00 10*3/uL [employer] Work Phone: Basophils/100 WBC (Bld) 0 % 0 - 2 % [employer] Phone: Differential Type YES [facility] Work Phone: Eosinophils/100 WBC (Bld) 2 % 0 - 5 % [employer] Work Phone: Erythrocyte distribution width (RBC) [Ratio] 15.1 % 12.1 - 15.2 % [facility] Work Phone: Hematocrit (Bld) [Volume fraction] 43.0 % 41 - 53 % [employer] Work Phone: Hemoglobin (Bld) [Mass/Vol] 14.1 g/dL 13.5 - 17.5 g/dL [employer] Work Phone: Immature Granulocytes NOT REPORTED 0 % M [facility] [employer] Work Phone: Interpretation and review of laboratory results Abnormal [facility] [employer] Work Phone: Lymphocytes/100 WBC (Bld) 15 % 13 - 44 % [facility] [employer] Work Phone: MCH (RBC) [Entitic mass] 29.9 pg 26 - 34 pg [facility] [employer] Work Phone: MCHC (RBC) [Mass/Vol] 32.8 g/dL 31 - 3 7 g/dL [facility] [employer] Work Phone: MCV (RBC) [Entitic vol] 90.9 fL 80 - 100 fL [facility] [employer] Work Phone: Monocytes/100 WBC (Bld) 8 % 5 - 9 % [facility] [employer] Work Phone: MPV NOT REPORTED 6 - 12 fL [facility] Work Phone: NRBC Automated NOT REPORTED per 100 WBC [facility] Work Phone: Platelet Estimate NOT REPORTED [facility] [employer] Work Phone: Platelets (Bld) [#/Vol] 224 10*3/uL [facility] [employer] Work Phone: RBC (Bld) [#/Vol] 4.73 10*6/uL 4.5 - 5.9 m/uL [facility] [employer] Work Phone: RBC morphology finding Nom (Bld) NOT REPORTED [facility] [employer] Work Phone: Segmented neutrophils/100 WBC (Bld) 75 % 39 - 75 % [facility] [employer] Work Phone: Segs Absolute 6.80 High [facility] Work Phone: WBC (Bld) [#/Vol] 8.9 10*3/uL [facility] [employer] Work Phone: WBC Morphology NOT REPORTED [facility] Work Phone: CT ABDOMEN PELVIS W IV CONTR ASTOrdered By: Eloina Meaditrov on 08-12-2019 1. Gallstones but no CT evidence for cholecystitis. 2. No other acute inflammatory process in the abdomen or pelvis. 3. Small pleural effusions and passive congestion in the liver suggesting volume overload. [employer] Phone: EXAMINATION: CT ABDO MEN PELVIS W [...] adenopathy in the pelvic or inguinal regions. [employer] Phone: Andrés, Mhpn Incoming Radiant Results From [employer] - 08/12/2019 2:28 PM EST EXAMINATION: CT [...] congestion in the liver suggesting volume overload. [employer] Phone: D-Dimer, QuantitativeOrdered By: makr on 08-12-2019 D-Dimer, Quant <0.19 [employer] Phone: Comment on above: Elevated levels of [...] of 98%). Hepatic Function PanelOrdere d By: makr on 08-12-2019 Albumin [Mass/Vol] 4.7 g/dL 3.5 - 5.2 g/dL [employer] Phone: Albumin/Globulin Ratio NOT REPORTED [employer] Phone: ALP [Catalytic activity/Vol] 68 U/L 40 - 129 U/L [employer] Phone: ALT [Catalytic activity/Vol] 26 U/L 5 - 41 U/L [employer] Phone: AST [Catalytic activity/Vol] 35 U/L <40 [employer] Phone: Bilirubin [Mass/Vol] 2.00 mg/dL High 0.3 - 1 .2 mg/dL [facility] Work Phone: Bilirubin, Indirect 1.68 mg/dL High 0 - 1 mg/dL [employer] Phone: Bilirubin.indirect [Mass/Vol] 0.32 mg/dL High <0.31 [employer] Phone: Globulin NOT REPORTED 1.5 - 3.8 g/dL [facility] [employer] Work Phone: Interpretation and review of laboratory results Abnormal [employer] Phone: Protein [Mass/Vol] 7.9 g/dL 6.4 - 8.3 g/dL [employer] Phone: LipaseOrdered By: Eloina Myles on 08-12-2019 Lipase [Catalytic activity/Vol] 15 U/L 13 - 60 U/L [facility] Work Phone: No Panel InformationOrdered By: SourceThoughtjosé miguel Simmonsv on 08-12-2019 Interpretation and review of laboratory results Abnormal [employer] Phone: TroponinOrdered By: Eloina Pat on 08-12-2019 Troponin Interp [employer] [facility] Work Phone: Comment on above: Reference Range: [...] for diagnosis. Troponin T <0.03 <0.03 ng/mL [employer] Phone: Comment on above: Troponin T results c annot be compared to Troponin-I results. Troponin, High Sensitivity NOT REPORTED 0 - 22 ng/L [employer] Phone: XR CHEST PORTABLEOrdered By: Veselin Adilia on 08-12-2019 Mild cardiomegaly an d pulmonary venous congestion but no colleen edema. Hidden [employer] Phone: EXAMINATION: XR CHES T PORTABLE COMPARISON: 02/26/2019. CLINICAL DATA: Shortness of breath for one week. FINDINGS: There is cardiomegaly and pulmonary venous congestion but no colleen edema. No pneumothorax or pleural effusion. No focal infiltrate has developed. The left subclavian cardiac pacer defibrillator wires in the right ventricle. [employer] Phone: Andrés, Mhpn Incoming Radiant Results From [facility] - 08/12/2019 11:36 AM EST EXAMINATION: XR CHEST PORTABLE COMPARISON: 02/26/2019. CLINICAL DATA: Shortness of breath for one week. FINDINGS: There is cardiomegaly and pulmonary venous congestion but no colleen edema. No pneumothorax or pleural effusion. No focal infiltrate has developed. The left subclavian cardiac pacer defibrillator wires in the right ventricle. IMPRESSION: Mild cardiomegaly and pulmonary venous congestion but no colleen edema. Hidden Radio Phone: Protime-INRon 06-03-2019 INR Coag (PPP) [Relative time] 2.8 {INR} [facility], [place] Protime-INRon 04-11-2019 INR Coag (PPP) [Relative time] 2.5 {INR} [facility], [place] PROGRESSon 10-31-2017 [facility] NOTES Normal [facility] NURSING NOTEon 10-19-2017 [facility] NOTES Normal [facility] NOT[facility] NOT[facility] Normal [facility] XR CHEST PA AND LATERALon [...] Left ICD placement. No postprocedure pneumothorax. Normal [facility] BRIEF OP NOTon 10-18-2017 [facility] HIM CAC NOTES Normal [facility] CBC(NO DIFF)on 10-18-2017 Erythrocyte distribution width Auto Ratio (RBC) 15.5 % High 11.5-14.5 [facility] Comment on above: Performed By: #### H EMOG, CMPF, PT ####[place] [address] Erythrocytes (RBC) 5.14 /cmm Normal 4.0-6.1 [facility] Comment on above: Performed By: #### H EMOG CMPF, PT ####[place] [address] Hematocrit (HCT) 44.0 % Normal 42.0-52.0 [facility] Comment on above: Performed By: #### H EMOArmin CMPF, PT ####[place] [address] Hemoglobin mass conc (Bld) 14.7 g/dL Normal 14.0-18.0 [facility] Comment on above: Performed By: #### H EMOArmin CMPF, PT ####[place] [address] MCH 28.6 pg Normal 26.0-35.0 [facility] Comment on above: Performed By: #### H EMOG CMPF, PT ####[place] [address] MCHC mass conc (RBC) 33.5 g/dL Normal 27.0-37.0 [facility] Comment on above: Performed By: #### H EMOG CMPF, PT ####[place] [address] MCV 85.5 fL Normal 80.0-100.0 [facility] Comment on above: Performed By: #### H EMOG, CMPF, PT ####[place] [address] Platelet mean volume (PMV) 8.6 fL Normal 7.4-11.0 [facility] Comment on above: Performed By: #### H EMOG, CMPF, PT ####Testing performed at [address] [address] Platelets 211 /cmm Normal 130.0-400.0 [facility] Comment on above: Performed By: #### H EMOG, CMPF, PT ####Testing performed at [address] [address] WBC (Leukocytes) 9.2 /cmm Normal 3.6-11.0 [facility] Comment on above: Performed By: #### H EMOG, CMPF, PT ####Testing performed at [address] [address] CMP FASTINGon 10-18-2017 A:G RATIO 1.4 RATIO Normal 1.3-2.2 [facility] Comment on above: Performed By: #### H EMOG, CMPF, PT ####Testing performed at [address] [address] Alanine aminotransferase (ALT) 31 U/L Normal 17-63 [facility] Comment on above: Performed By: #### H EMOG, CMPF, PT ####Testing performed at [address] [address] Albumin 4.8 G/dl Normal 3.5-5.0 [facility] Comment on above: Performed By: #### H EMOG, CMPF, PT ####Testing performed at [address] [address] Alkaline phosphatase (ALP) 67 U/L Normal 38-126 [facility] Comment on above: Performed By: #### H EMOG, CMPF, PT ####Testing performed at [address] [address] Aspartate aminotransferase (AST) 29 U/L Normal 15-41 [facility] Comment on above: Performed By: #### H EMOG, CMPF, PT ####Testing performed at [address] [address] Bilirubin (total) 1.7 mg/dL High 0.2-1.2 [facility] Comment on above: Performed By: #### H EMOG, CMPF, PT ####Testing performed at [address] [address] BUN (urea nitrogen) 47 mg/dL High 7-20 [facility] Comment on above: Performed By: #### H EMOG, CMPF, PT ####Testing performed at [address] [address] Creatinine 1.6 mg/dL High 0.66-1.25 [facility] Comment on above: Performed By: #### H EMOG, CMPF, PT ####Testing performed at [address] [address] eGFR (non-black) Average GFR for 60-6 9 years old = 85. Normal [facility] Comment on above: Result Comment: Crew Supervisor megan Kidney disease, GFR = <60.Kidney failure, GFR = <15.The GFR estimate is not adjusted for extreme body surface area or acute process, nor has it been validated for women or ethnic groups other than and . Performed By: #### H EMOG, CMPF, PT ####Testing performed at [address] [address] eGFR (non-black) 47 mL/min/{1.73_m2} Normal [facility] Comment on above: Performed By: #### H EMOG, CMPF, PT ####Testing performed at [address] [address] eGFR (non-black) 57 mL/min/{1.73_m2} Normal [facility] Comment on above: Performed By: #### H EMOG, CMPF, PT ####Testing performed at [address] [address] Protein 8.2 g/dL Normal 6.3-8.2 [facility] Comment on above: Performed By: #### H EMOG, CMPF, PT ####Testing performed at [address] [address] Calcium 10.2 mg/dL Normal 8.4-10.2 [facility] Comment on above: Performed By: #### H EMOG, CMPF, PT ####Testing performed at [address] [address] Chloride 102 mmol/L Normal 98-107 [facility] Comment on above: Performed By: #### H AISHA MERRITT, PT ####Testing performed at [address] [address] CO2 25 mmol/L Normal 22-30 [facility] Comment on above: Performed By: #### H AISHA MERRITT, PT ####Testing performed at [address] [address] Glucose mass conc 138 mg/dL High 70-100 [facility] Comment on above: Result Comment: NORM AL <100 mg/dLPREDIABETES 101-126 mg/dLDIABETES 126 mg/dL or higher Performed By: #### H AISHA MERRITT, PT ####Testing performed at [address] [address] Potassium molar conc 5.3 mmol/L High 3.5-5.1 [facility] Comment on above: Performed By: #### H AISHA MERRITT, PT ####Testing performed at [address] [address] Sodium 137 mmol/L Normal 137-145 [facility] Comment on above: Performed By: #### H AISHA MERRITT, PT ####Testing performed at [address] [address] HISTORY AND PHYSICALon 10-18 [facility] NOTES Normal [facility] MRSA SCREENon 10-18-[address] [facility] Comment on above: Performed By: #### M RSAST ####Testing performed at [address] [address] STAPH AUREUS SCREEN Negative [facility] Comment on above: Result Comment: TEST ING PERFORMED BY PCR Performed By: #### M RSAST ####Testing performed at [address] [address] NURSING NOTEon 10-18-2017 [facility] NOT[facility] NOT[facility] NOT[facility] Normal [facility] OP NOTEon 10-18-2017 [facility] NOTES Normal [facility] PLAN OF CAREon 10-18-2017 [facility] NOTES Normal [facility] PROGRESSon 10-18-2017 [facility] NOTES Normal [facility] PROTIMEon 10-18-2017 INR Coag RelTime (PPP) 1.40 {INR} High 0.88-1.12 [facility] Comment on above: Result Comment: 2.0- 3.0 THERAPEUTIC RANGE2.5-3.5 PROSTHETIC VALVE RANGE Performed By: #### H EMOG, CMPF, PT ####[place] [address] Prothrombin time (PT) Coag time (PPP) 17.1 s High 11.6-14.0 [facility] Comment on above: Performed By: #### H EMOG, CMPF, PT ####[place] [address] PROGRESSon 09-25-2017 [facility] NOTES Normal [facility] MR CARDIAC MORPHOLOGY WITH A ND WITHOUT CONTRASTon 09-18-2017 MR CARDIAC MORPHOLOGY WITH AND WITHOUT CONTRAST EXAMINATION:MR CARDIAC MORPHOLOGY WITH AND WITHOUT CONTRASTHISTORY:ORDERING SYSTEM PROVIDED HISTORY: Ischemic cardiomyopathy, TECHNOLOGIST PROVIDED HISTORY: Reason for exam: Ischemic cardiomyopathyIllness/Ot herEncounter Type: InitialAdditional signs and symptoms: SHORTNESS OF BREATHORDERING SYSTEM PROVIDED DIAGNOSIS CODES:I25.5 Ischemic cardiomyopathyIschemic cardiomyopathy.COMPARISO N:None available.TECHNIQUE:[facility] MRI was performed using 3-plane localizing SSFP [...] akinesis of the apical anterior wall and qibuhivd-zn-lhvwkg hypokinesis of the other apical segments. On [...] of interstitial pulmonary edema.Findings discussed with Dr. Nicole.SRAVAN/juareziWorkstatcate on ID: [id number] by: LESLIE MABRY on MonSep 18, 2017 2:50:27 PM ESTTranscribed by: LISS GIBSON on MonSep 18, 2017 3:15:42 PM ESTFinalized by: LESLIE MABRY on MonSep 18, 2017 8:06:56 PM EST Normal [facility] Comment on above: Order Comment: DX:I2 5.5, [...] discussed with Dr. Nicole. SRAVAN/arcenio Workstation ID: [id number] Invalid Interpretation Code [facility] MR Cardiac Morphology With And [...] akinesis of the apical anterior wall and kkjvassa-fk-dshmdg hypokinesis of the other apical segments. On [...] mild interstitial pulmonary edema. Invalid Interpretation Code [facility] MR Cardiac Morphology With And Without Contrast Interface, Rad In Jeanne Feng - 09/18/2017 8:09 PM EST EXAMINATION: MR [...] akinesis of the apical anterior wall and pgqyutlv-ov-qhxgrx hypokinesis of the other apical segments. On [...] pulmonary edema. Findings discussed with Dr. Nicole. JRS/pji Workstation ID: [id number] Invalid Interpretation Code [facility] SYNAPSE [facility] POC Creatinineon 09-18-2017 Creatinine 1.4 mg/dL High 0.5 - 1.3 mg/dL [facility] Interpretation and review of laboratory results Abnormal Invalid Interpretation Code [facility] Glucose, POCon 09-06-2017 Glucose mass conc 95 mg/dL Normal 70-105 [facility] Comment on above: Performed By: #### G LUX ####Unless otherwise noted, [facility] testing performed [facility], [place] [id number]: [id number] Director: Mando Chiu M.D. Operation-Procedureon 2017 Operation-Procedure [address] [id number] HINDS [id number] REPORT / PROCEDURE NOTESURGEON AYDE NICOLE, [facility] CENTERROCEDURELeft heart catheterization, Haroon technique.INDICATIONMrLizzette Foster is a [...] right femoralartery and through this placed a 6-Frisian sheath. I then placed a Judkinsleft diagnostic [...] have a long-term cardiomyopathy EF of 25%. Amanda use guideline directed therapy .AYDE NICOLE, SOHEILA 09/06/2017 12:48 [id number] 09/06/2017 13:50 GSV/MODLcc: Jeff Cerda MDElectronically Signed By Ayde Nicole M.D. on 13 Sep 2017 12:43:56 GMT Normal [facility] Vital Signs Date Time Vital Sign Value Performing Clinician Faci lity 09-18-2023 15:29-0500 Body height 180.3 cm Luc Zacarias MD Work Phone: [facility] 09-18-2023 15:29-0500 Body weight 103.42 kg Luc Zacarias MD Work Phone: [facility] 09-18-2023 15:29-0500 Diastolic blood pressure 72 mm[Hg] Luc Zacarias MD Work Phone: [facility] 09-18-2023 15:29-0500 Heart rate 69 /min Luc Zacarias MD Work Phone: [facility] 09-18-2023 15:29-0500 Systolic blood pressure 114 mm[Hg] Luc Zacarias MD Work Phone: [facility] 09-15-2023 07:00-0500 Body temperature 98.49 [degF] Eva Mendez MD Work Phone: [facility] 09-15-2023 07:00-0500 Diastolic blood pressure 77 mm[Hg] Eva Mendez MD Work Phone: [facility] 09-15-2023 07:00-0500 Heart rate 108 /min Eva Mendez MD Work Phone: [facility] 09-15-2023 07:00-0500 Respiratory rate 17 /min Eva Mendez MD Work Phone: [facility] 09-15-2023 07:00-0500 SaO2% (BldA) [Mass fraction] 95 % Eva Mendez MD Work Phone: [facility] 09-15-2023 07:00-0500 Systolic blood pressure 128 mm[Hg] Eva Mendez MD Work Phone: [facility] 09-13-2023 16:00-0500 Body height 180.3 cm Eva Mendez MD Work Phone: [facility] 09-13-2023 16:00-0500 Body mass index (BMI) [Ratio] 32.36 kg/m2 Eva Mendez MD Work Phone: [facility] 09-13-2023 16:00-0500 Body weight 105.23 kg Eva Mendez MD Work Phone: [facility] 09-06-2023 09:31-0500 Diastolic blood pressure 68 mm[Hg] Shahab Buckley MD Work Phone: [facility] 09-06-2023 09:31-0500 Heart rate 81 /min Shahab Buckley MD Work Phone: [facility] 09-06-2023 09:31-0500 Systolic blood pressure 113 mm[Hg] Shahab Buckley MD Work Phone: [facility] 09-06-2023 09:18-0500 Body height 180.3 cm Shahab Buckley MD Work Phone: [facility] 09-06-2023 09:18-0500 Body mass index (BMI) [Ratio] 33.61 kg/m2 Shahab Buckley MD Work Phone: [facility] 09-06-2023 09:18-0500 Body weight 109.32 kg Shahab Buckley MD Work Phone: [facility] 07-12-2023 11:18-0500 Body height 180.3 cm Carolina Stover MD Work Phone: [facility] 07-12-2023 11:18-0500 Body weight 103.42 kg Carolina Stover MD Work Phone: [facility] 07-12-2023 11:18-0500 Diastolic blood pressure 78 mm[Hg] Carolina Stover MD Work Phone: [facility] 07-12-2023 11:18-0500 Heart rate 64 /min Carolina Stover MD Work Phone: [facility] 07-12-2023 11:18-0500 Respiratory rate 15 /min Carolina Stover MD Work Phone: [facility] 07-12-2023 11:18-0500 SaO2% (BldA) [Mass fraction] 98 % Carolina Stover MD Work Phone: [facility] 07-12-2023 11:18-0500 Systolic blood pressure 109 mm[Hg] Carolina Stover MD Work Phone: [facility] 06-27-2023 10:10-0500 Body height 180.3 cm Yannick Matejka PA-C Work Phone: [facility] 06-27-2023 10:10-0500 Body weight 104.33 kg Yannick Matejka PA-C Work Phone: [facility] 06-27-2023 10:10-0500 Diastolic blood pressure 57 mm[Hg] Yannick Matejka PA-C Work Phone: [facility] 06-27-2023 10:10-0500 Heart rate 81 /min Yannick Matejka PA-C Work Phone: [facility] 06-27-2023 10:10-0500 SaO2% (BldA) [Mass fraction] 100 % Yannick Matejka PA-C Work Phone: [facility] 06-27-2023 10:10-0500 Systolic blood pressure 102 mm[Hg] Yannick Matejka PA-C Work Phone: [facility] 06-16-2023 10:41-0500 Body height 180.3 cm Fany Ta APRN.CNP Work Phone: [facility] 06-16-2023 10:41-0500 Body weight 103.87 kg Fany Laffey OIL SPRAYING MACHINE OPERATOR.MANAGEMENT TECH Work Phone: [facility] 06-16-2023 10:41-0500 Diastolic blood pressure 74 mm[Hg] Fany Laffey OIL SPRAYING MACHINE OPERATOR.MANAGEMENT TECH Work Phone: [facility] 06-16-2023 10:41-0500 Heart rate 51 /min Fany Laffey OIL SPRAYING MACHINE OPERATOR.MANAGEMENT TECH Work Phone: [facility] 06-16-2023 10:41-0500 SaO2% (BldA) [Mass fraction] 99 % Fany Laffey OIL SPRAYING MACHINE OPERATOR.MANAGEMENT TECH Work Phone: [facility] 06-16-2023 10:41-0500 Systolic blood pressure 112 mm[Hg] Fany Laffey OIL SPRAYING MACHINE OPERATOR.MANAGEMENT TECH Work Phone: [facility] 04-26-2023 10:12-0400 Body height 180.3 cm Yannick Matejka PA-C Work Phone: [facility] 04-26-2023 10:12-0400 Body weight 103.87 kg Yannick Matejka PA-C Work Phone: [facility] 04-26-2023 10:12-0400 Diastolic blood pressure 71 mm[Hg] Yannick Matejka PA-C Work Phone: [facility] 04-26-2023 10:12-0400 Heart rate 84 /min Yannick Matejka PA-C Work Phone: [facility] 04-26-2023 10:12-0400 SaO2% (BldA) [Mass fraction] 100 % Yannick Matejka PA-C Work Phone: [facility] 04-26-2023 10:12-0400 Systolic blood pressure 122 mm[Hg] Yannick Matejka PA-C Work Phone: [facility] 01-04-2023 07:59-0400 Body mass index (BMI) [Ratio] 33.14 kg/m2 Rogerio Gruber [facility] 01-04-2023 07:59-0400 Body weight 107.78 kg Rogerio Gruber RP [facility] 01-04-2023 07:59-0400 Diastolic blood pressure 78 mm[Hg] [facility]uber [facility] 01-04-2023 07:59-0400 Heart rate 80 /min Rogerio Gruber RP [facility] 01-04-2023 07:59-0400 Systolic blood pressure 125 mm[Hg] Rogerio Gruber RP [facility] 11-23-2022 07:53-0400 Body mass index (BMI) [Ratio] 33.22 kg/m2 [facility] 11-23-2022 07:53-0400 Body weight 108.05 kg Rogerio Gruber RP [facility] 11-23-2022 07:53-0400 Diastolic blood pressure 87 mm[Hg] Rogerio Gruber RP [facility] 11-23-2022 07:53-0400 Heart rate 92 /min Rogerio Gruber RP [facility] 11-23-2022 07:53-0400 Systolic blood pressure 123 mm[Hg] [facility] 10-26-2022 07:57-0400 Body mass index (BMI) [Ratio] 33.36 kg/m2 Rogerio Gruber RP [facility] 10-26-2022 07:57-0400 Body weight 108.5 kg Rogerio Gruber RP [facility] 10-26-2022 07:57-0400 Diastolic blood pressure 63 mm[Hg] Roger[facility] 10-26-2022 07:57-0400 Heart rate 80 /min Rogerio Gruber RP [facility] 10-26-2022 07:57-0400 Systolic blood pressure 122 mm[Hg] Rogerio Gruber RP [facility] 09-21-2022 07:57-0500 Body mass index (BMI) [Ratio] 33.05 kg/m2 Rogerio Gruber RP [facility] 09-21-2022 07:57-0500 Body weight 107.5 kg Rogerio Bergerck [facility] 09-21-2022 07:57-0500 Diastolic blood pressure 77 mm[Hg] Rogerio Allyn [facility] 09-21-2022 07:57-0500 Heart rate 78 /min Rogerio Bergerck [facility] 09-21-2022 07:57-0500 Systolic blood pressure 111 mm[Hg] Rogerio Allyn [facility] 08-26-2022 15:33-0500 Diastolic blood pressure 81 mm[Hg] Shahab Buckley MD Work Phone: [facility] 08-26-2022 15:33-0500 Heart rate 80 /min Shahab Buckley MD Work Phone: [facility] 08-26-2022 15:33-0500 Systolic blood pressure 131 mm[Hg] Shahab Buckley MD Work Phone: [facility] 08-26-2022 15:26-0500 Body height 180.3 cm Shahab Buckley MD Work Phone: [facility] 08-26-2022 15:26-0500 Body mass index (BMI) [Ratio] 33.05 kg/m2 Shahab Buckley MD Work Phone: [facility] 08-26-2022 15:26-0500 Body weight 107.5 kg Shahab Buckley MD Work Phone: [facility] 08-24-2022 08:02-0500 Body mass index (BMI) [Ratio] 34.59 kg/m2 Rogerio Gruber [facility] 08-24-2022 08:02-0500 Body weight 112.49 kg Rogerio Allyn [facility] 08-24-2022 08:02-0500 Diastolic blood pressure 61 mm[Hg] Rogerio Gruber [facility] 08-24-2022 08:02-0500 Heart rate 37 /min Rogerio Gruber [facility] 08-24-2022 08:02-0500 Systolic blood pressure 121 mm[Hg] Rogerio Gruber RP [facility] 07-27-2022 07:58-0500 Body mass index (BMI) [Ratio] 32.78 kg/m2 Rogerio Gruber [facility] 07-27-2022 07:58-0500 Body weight 106.59 kg [facility] 07-27-2022 07:58-0500 Diastolic blood pressure 66 mm[Hg] Roger[facility] Gr[facility] 07-27-2022 07:58-0500 Heart rate 60 /min [facility] 07-27-2022 07:58-0500 Systolic blood pressure 122 mm[Hg] Rogerio Gruber [facility] 06-01-2022 08:13-0400 Body mass index (BMI) [Ratio] 32.78 kg/m2 Rogerio Gruber [facility] 06-01-2022 08:13-0400 Body weight 106.59 kg Roger[facility] Gruber [facility] 06-01-2022 08:13-0400 Diastolic blood pressure 64 mm[Hg] Rogerio Gruber [facility] 06-01-2022 08:13-0400 Heart rate 92 /min Rogerio Gruber [facility] 06-01-2022 08:13-0400 Systolic blood pressure 123 mm[Hg] Rogerio Gruber [facility] 04-27-2022 08:00-0400 Body mass index (BMI) [Ratio] 33.05 kg/m2 Rogerio Gruber [facility] 04-27-2022 08:00-0400 Body weight 107.5 kg Rogerio Gruber [facility] 04-27-2022 08:00-0400 Diastolic blood pressure 63 mm[Hg] Rogerio Gruber [facility] 04-27-2022 08:00-0400 Heart rate 97 /min Rogerio Gruber [facility] 04-27-2022 08:00-0400 Systolic blood pressure 122 mm[Hg] Rogerio Gruber [facility] 03-30-2022 07:52-0400 Body mass index (BMI) [Ratio] 33.28 kg/m2 Rogerio Gruber [facility] 03-30-2022 07:52-0400 Body weight 108.23 kg Rogerio Gruber RP [facility] 03-30-2022 07:52-0400 Diastolic blood pressure 71 mm[Hg] Rogerio Gruber [facility] 03-30-2022 07:52-0400 Heart rate 60 /min Rogerio Gruber [facility] 03-30-2022 07:52-0400 Systolic blood pressure 127 mm[Hg] Rogerio Gruber [facility] 03-16-2022 08:12-0400 Body mass index (BMI) [Ratio] 33.17 kg/m2 Rogerio Gruber [facility] 03-16-2022 08:12-0400 Body weight 107.86 kg [facility] 03-16-2022 08:12-0400 Diastolic blood pressure 84 mm[Hg] Rogerio Gruber [facility] 03-16-2022 08:12-0400 Heart rate 73 /min [facility] 03-16-2022 08:12-0400 Systolic blood pressure 141 mm[Hg] Rogerio Gruber [facility] 03-02-2022 07:53-0400 Body mass index (BMI) [Ratio] 32.78 kg/m2 Rogerio Gruber [facility] 03-02-2022 07:53-0400 Body weight 106.59 kg Rogerio Gruber [facility] 03-02-2022 07:53-0400 Diastolic blood pressure 70 mm[Hg] Roger[facility] 03-02-2022 07:53-0400 Heart rate 67 /min Rogerio Gruber [facility] 03-02-2022 07:53-0400 Systolic blood pressure 114 mm[Hg] Rogerio Gruber [facility] 02-22-2022 08:25-0400 Body mass index (BMI) [Ratio] 32.27 kg/m2 Marion Bell [facility] [employer] 02-22-2022 08:25-0400 Body weight 104.96 kg Marion Bell [facility] 02-22-2022 08:25-0400 Diastolic blood pressure 67 mm[Hg] Marion Bell [facility] 02-22-2022 08:25-0400 Heart rate 68 /min Marion Bell [facility] 02-22-2022 08:25-0400 Systolic blood pressure 122 mm[Hg] Marion Bell [facility] 02-11-2022 15:49-0400 Diastolic blood pressure 78 mm[Hg] Shahab Buckley MD Work Phone: [facility] 02-11-2022 15:49-0400 Heart rate 83 /min Shahab Buckley MD Work Phone: [facility] 02-11-2022 15:49-0400 Systolic blood pressure 136 mm[Hg] Shahab Buckley MD Work Phone: [facility] 02-11-2022 15:42-0400 Body height 180.3 cm Shahab Buckley MD Work Phone: [facility] 02-11-2022 15:42-0400 Body mass index (BMI) [Ratio] 32.5 kg/m2 Shahab Buckley MD Work Phone: [facility] 02-11-2022 15:42-0400 Body weight 105.69 kg Shahab Buckley MD Work Phone: [facility] 02-03-2022 07:43-0400 Body mass index (BMI) [Ratio] 31.8 kg/m2 Raffy Richardson [facility] 02-03-2022 07:43-0400 Body weight 103.42 kg Raffy Richardson [facility] 02-03-2022 07:43-0400 Diastolic blood pressure 64 mm[Hg] Raffy Richardson [facility] 02-03-2022 07:43-0400 Heart rate 76 /min Raffy Richardson [facility] 02-03-2022 07:43-0400 Systolic blood pressure 113 mm[Hg] Raffy Richardson [facility] 01-27-2022 08:19-0400 Body mass index (BMI) [Ratio] 31.97 kg/m2 Raffy Richardson [facility] 01-27-2022 08:19-0400 Body weight 103.96 kg Raffy Richardson [facility] 01-27-2022 08:19-0400 Diastolic blood pressure 70 mm[Hg] Raffy Richardson [facility] 01-27-2022 08:19-0400 Heart rate 77 /min Raffy Richardson [facility] 01-27-2022 08:19-0400 Systolic blood pressure 108 mm[Hg] Raffy Richardson [facility] 01-20-2022 07:52-0400 Body mass index (BMI) [Ratio] 32.33 kg/m2 [facility] 01-20-2022 07:52-0400 Body weight 105.14 kg Raffy Richardson [facility] 01-20-2022 07:52-0400 Diastolic blood pressure 53 mm[Hg] Raffy Richardson [facility] 01-20-2022 07:52-0400 Heart rate 41 /min Raffy Richardson [facility] 01-20-2022 07:52-0400 Systolic blood pressure 105 mm[Hg] [facility] 01-13-2022 07:54-0400 Body mass index (BMI) [Ratio] 33.28 kg/m2 Raffy Richardson [facility] 01-13-2022 07:54-0400 Body weight 108.23 kg Raffy Richardson [facility] 01-13-2022 07:54-0400 Diastolic blood pressure 56 mm[Hg] Raffy Richardson [facility] 01-13-2022 07:54-0400 Heart rate 72 /min Raffy Richardson [facility] 01-13-2022 07:54-0400 Systolic blood pressure 100 mm[Hg] Raffy Richardson [facility] 01-07-2022 20:05-0400 Body mass index (BMI) [Ratio] 33.19 kg/m2 Lonnie Hart MD [facility] 01-07-2022 20:05-0400 Body temperature 97.7 [degF] Lonnie Hart MD Work Phone: [facility] 01-07-2022 20:05-0400 Body weight 107.96 kg Lonnie Hart MD Work Phone: [facility] 01-07-2022 20:05-0400 Diastolic blood pressure 96 mm[Hg] Lonnie Hart MD Work Phone: [facility] 01-07-2022 20:05-0400 Heart rate 101 /min Lonnie Hart MD Work Phone: [facility] 01-07-2022 20:05-0400 Respiratory rate 18 /min Lonnie Hart MD Work Phone: [facility] 01-07-2022 20:05-0400 SaO2% (BldA) [Mass fraction] 98 % Lonnie Hart MD Work Phone: [facility] 01-07-2022 20:05-0400 Systolic blood pressure 151 mm[Hg] Lonnie Hart MD Work Phone: [facility] 01-06-2022 07:52-0400 Body mass index (BMI) [Ratio] 33.25 kg/m2 Raffy [facility] 01-06-2022 07:52-0400 Body weight 108.14 kg [facility]aff[facility] 01-06-2022 07:52-0400 Diastolic blood pressure 67 mm[Hg] Raffy Richardson [facility] 01-06-2022 07:52-0400 Heart rate 41 /min [facility]affy Dylan [facility] 01-06-2022 07:52-0400 Systolic blood pressure 111 mm[Hg] Raffy Richardson [facility] 12-29-2021 08:00-0400 Body temperature 98.01 [degF] Shahab Buckley MD Work Phone: [facility] 12-29-2021 08:00-0400 Diastolic blood pressure 74 mm[Hg] Shahab Buckley MD Work Phone: [facility] 12-29-2021 08:00-0400 Heart rate 78 /min Shahab Buckley MD Work Phone: [facility] 12-29-2021 08:00-0400 Respiratory rate 14 /min Shahab Buckley MD Work Phone: [facility] 12-29-2021 08:00-0400 SaO2% (BldA) [Mass fraction] 96 % Shahab Buckley MD Work Phone: [facility] 12-29-2021 08:00-0400 Systolic blood pressure 122 mm[Hg] Shahab Buckley MD Work Phone: [facility] 12-28-2021 11:00-0400 Body height 180.3 cm Shahab Buckley MD Work Phone: [facility] 12-28-2021 11:00-0400 Body mass index (BMI) [Ratio] 33.39 kg/m2 Shahab Buckley MD Work Phone: [facility] 12-28-2021 11:00-0400 Body weight 108.6 kg Shahab Buckley MD Work Phone: [facility] 12-22-2021 07:39-0400 Body mass index (BMI) [Ratio] 34.78 kg/m2 [facility] 12-22-2021 07:39-0400 Body weight 113.13 kg Raffy [facility] 12-22-2021 07:39-0400 Diastolic blood pressure 68 mm[Hg] [facility] 12-22-2021 07:39-0400 Heart rate 77 /min [facility] 12-22-2021 07:39-0400 Systolic blood pressure 111 mm[Hg] [facility] 12-09-2021 07:41-0400 Body mass index (BMI) [Ratio] 35.37 kg/m2 [facility] 12-09-2021 07:41-0400 Body weight 115.03 kg [facility] 12-09-2021 07:41-0400 Diastolic blood pressure 64 mm[Hg] Raffy Richardson [facility] 12-09-2021 07:41-0400 Heart rate 71 /min Raffy Richardson [facility] 12-09-2021 07:41-0400 Systolic blood pressure 115 mm[Hg] Raffy Richardson [facility] 12-08-2021 15:59-0400 Diastolic blood pressure 87 mm[Hg] Shahab Buckley MD Work Phone: [facility] 12-08-2021 15:59-0400 Heart rate 98 /min Shahab Buckley MD Work Phone: [facility] 12-08-2021 15:59-0400 Systolic blood pressure 132 mm[Hg] Shahab Buckley MD Work Phone: [facility] 12-08-2021 15:52-0400 Body height 180.3 cm Shahab Buckley MD Work Phone: [facility] 12-08-2021 15:52-0400 Body mass index (BMI) [Ratio] 35.43 kg/m2 Shahab Buckley MD Work Phone: [facility] 12-08-2021 15:52-0400 Body weight 115.21 kg Shahab Buckley MD Work Phone: [facility] 11-16-2021 08:05-0400 Body mass index (BMI) [Ratio] 34.76 kg/m2 Raffy Dylan [facility] 11-16-2021 08:05-0400 Body weight 113.04 kg Raffy Richardson [facility] 11-16-2021 08:05-0400 Diastolic blood pressure 66 mm[Hg] Raffy Richardson [facility] 11-16-2021 08:05-0400 Heart rate 78 /min Raffy Richardson [facility] 11-16-2021 08:05-0400 Systolic blood pressure 128 mm[Hg] Raffy Dylan [facility] 08-10-2021 08:03-0500 Body mass index (BMI) [Ratio] 34.06 kg/m2 Raffy Dylan [facility] 08-10-2021 08:03-0500 Body weight 110.77 kg Raffy Dylan [facility] 08-10-2021 08:03-0500 Diastolic blood pressure 67 mm[Hg] Raffy [facility] 08-10-2021 08:03-0500 Heart rate 45 /min Raffy Richardson [facility] 08-10-2021 08:03-0500 Systolic blood pressure 127 mm[Hg] Raffy Richardson [facility] 06-07-2021 07:41-0400 Body mass index (BMI) [Ratio] 34.92 kg/m2 Raffy Richardson [facility] Work Phone: 06-07-2021 07:41-0400 Body weight 113.58 kg Raffy Richardson [facility] Work Phone: 06-07-2021 07:41-0400 Diastolic blood pressure 62 mm[Hg] Raffy Richardson [facility] Work Phone: 06-07-2021 07:41-0400 Heart rate 72 /min Raffy Rihcardson [facility] Work Phone: 06-07-2021 07:41-0400 Systolic blood pressure 114 mm[Hg] Raffy Richardson [facility] Work Phone: 04-23-2021 07:40-0400 Body mass index (BMI) [Ratio] 34.81 kg/m2 Raffy Richardson [facility] Work Phone: 04-23-2021 07:40-0400 Body weight 113.22 kg Raffy Richardson [facility] Work Phone: 04-23-2021 07:40-0400 Diastolic blood pressure 63 mm[Hg] Raffy Richardson [facility] Work Phone: 04-23-2021 07:40-0400 Heart rate 55 /min Raffy Richardson [facility] Work Phone: 04-23-2021 07:40-0400 Systolic blood pressure 124 mm[Hg] Raffy Richardson [facility] Work Phone: 03-01-2021 10:30-0400 Body mass index (BMI) [Ratio] 33.92 kg/m2 Lorri Carmen [facility] Work Phone: [facility] Work Phone: 03-01-2021 10:30-0400 Body weight 110.31 kg Lorri Carmen [facility] Work Phone: [facility] Work Phone: 03-01-2021 10:30-0400 Diastolic blood pressure 68 mm[Hg] Lorri Carmen [facility] Work Phone: [facility] Work Phone: 03-01-2021 10:30-0400 Heart rate 66 /min Lorri Carmen [facility] Work Phone: [facility] Work Phone: 03-01-2021 10:30-0400 Systolic blood pressure 128 mm[Hg] Lorri Carmen [facility] Work Phone: [facility] Work Phone: 12-29-2020 08:07-0400 Body mass index (BMI) [Ratio] 34.62 kg/m2 Raffy Richardson [facility] Work Phone: 12-29-2020 08:07-0400 Body weight 112.58 kg Raffy Richardson [facility] Work Phone: 12-29-2020 08:07-0400 Diastolic blood pressure 67 mm[Hg] Raffy Richardson [facility] Work Phone: 12-29-2020 08:07-0400 Heart rate 71 /min Raffy Richardson [facility] Work Phone: 12-29-2020 08:07-0400 Systolic blood pressure 122 mm[Hg] Raffy Richardson [facility] Work Phone: 11-23-2020 10:14-0400 Body temperature 96.8 [degF] Ayde Matthews DO Work Phone: [employer] Phone: 11-23-2020 10:14-0400 Diastolic blood pressure 93 mm[Hg] Ayde Matthews Maana Work Phone: [employer] Phone: 11-23-2020 10:14-0400 Heart rate 84 /min Ayde Matthews Maana Work Phone: [facility] Work Phone: 11-23-2020 10:14-0400 Respiratory rate 14 /min Ayde Matthews Maana Work Phone: [employer] Phone: 11-23-2020 10:14-0400 SaO2% (BldA) [Mass fraction] 96 % Ayde Matthews Maana Work Phone: [employer] Phone: 11-23-2020 10:14-0400 Systolic blood pressure 155 mm[Hg] Ayde Matthews Ma[place] Work Phone: [employer] Phone: 11-23-2020 06:16-0400 Body height 180.3 cm Ayde Matthews [place] Work Phone: [employer] Phone: 11-23-2020 06:16-0400 Body mass index (BMI) [Ratio] 34.8 kg/m2 Ayde Matthews [place] Work Phone: [employer] Phone: 11-23-2020 06:16-0400 Body weight 113.17 kg Ayde Matthews [place] Work Phone: [employer] Phone: 11-17-2020 08:06-0400 BMI (Body Mass Index) 35.06 kg/m2 Raffy Richardson [employer] Phone: 11-17-2020 08:06-0400 Body weight 114.03 kg Raffy Richardson [employer] Phone: 11-17-2020 08:06-0400 BP Diastolic 59 mm[Hg] Raffy Richardson [employer] Phone: 11-17-2020 08:06-0400 BP Systolic 101 mm[Hg] Rafyf Richardson [employer] Phone: 11-17-2020 08:06-0400 Pulse (Heart Rate) 71 /min Raffy Richardson [employer] Phone: 11-09-2020 13:12-0400 BMI (Body Mass Index) 34.31 kg/m2 [facility] [employer] Phone: 11-09-2020 13:12-0400 Body Temperature 96.8 [degF] [facility] [employer] Phone: 11-09-2020 13:12-0400 Body weight 111.58 kg [facility] [employer] Phone: 11-09-2020 13:12-0400 BP Diastolic 78 mm[Hg] [facility] [employer] Phone: 11-09-2020 13:12-0400 BP Systolic 120 mm[Hg] [facility] [employer] Phone: 11-09-2020 13:12-0400 Height 180.3 cm [facility] [employer] Phone: 11-09-2020 13:12-0400 Pulse (Heart Rate) 73 /min [facility] [employer] Phone: 11-09-2020 13:12-0400 Pulse Oximetry 100 % [facility] [employer] Phone: 11-09-2020 13:12-0400 Respiratory Rate 18 /min [facility] [employer] Phone: 05-14-2020 07:41-0400 Body Temperature 96.8 [degF] Lorri Carmen [facility] [place] 04-02-2020 07:36-0400 Body Temperature 97.2 [degF] Lorri Carmen [facility] [place] 02-20-2020 07:39-0400 Body Temperature 97.81 [degF] Lorri Carmen [facility] [place] 01-09-2020 07:46-0400 Body Temperature 97.11 [degF] Lorri Carmen [facility] [place] 10-17-2019 07:33-0400 BMI (Body Mass Index) 34.55 kg/m2 [facility], [place] 10-17-2019 07:33-0400 Body weight 112.31 kg Lorridonnie Carmen [facility] , [place] 10-17-2019 07:33-0400 BP Diastolic 75 mm[Hg] [facility] [place] 10-17-2019 07:33-0400 BP Systolic 154 mm[Hg] [facility] [place] 10-17-2019 07:33-0400 Pulse (Heart Rate) 70 /min Lorridonnie Carmen [facility] [place] 09-02-2019 11:31-0500 Body mass index (BMI) [Ratio] 33.14 kg/m2 [facility]: 09-02-2019 11:31-0500 Body weight 107.78 kg [facility] Work [facility]: 09-02-2019 11:31-0500 Diastolic blood pressure 57 mm[Hg] Raffy [facility] Work Phone: 09-02-2019 11:31-0500 Heart rate 77 /min [facility] Work [facility]: 09-02-2019 11:31-0500 Systolic blood pressure 115 mm[Hg] [facility] Work [facility]: 08-12-2019 14:48-0500 Diastolic blood pressure 84 mm[Hg] Eloina Pat MD Work Phone: [facility] Work Phone: 08-12-2019 14:48-0500 Heart rate 77 /min Eloina Pat MD Work Phone: [facility] Work Phone: 08-12-2019 14:48-0500 Respiratory rate 21 /min Eloina Pat MD Work Phone: [facility] Work Phone: 08-12-2019 14:48-0500 SaO2% (BldA) [Mass fraction] 96 % Eloina Pat MD Work Phone: [facility] Work Phone: 08-12-2019 14:48-0500 Systolic blood pressure 151 mm[Hg] Eloina Pat MD Work Phone: [facility] Work Phone: 08-12-2019 11:35-0500 Body temperature 98.2 [degF] Eloina Pat MD Work Phone: [facility] Work Phone: 08-12-2019 10:51-0500 Body height 180.3 cm Eloina Pat MD Work Phone: [facility] Work Phone: 08-12-2019 10:51-0500 Body mass index (BMI) [Ratio] 30.68 kg/m2 Eloina Pat MD Work Phone: [facility] Work Phone: 08-12-2019 10:51-0500 Body weight 99.79 kg Eloina Pat MD Work Phone: [facility] Work Phone: 06-03-2019 12:15-0400 Body weight 111.22 kg [place], [place] 06-03-2019 12:15-0400 BP Diastolic 72 mm[Hg] [facility] [place] [facility] [place] 06-03-2019 12:15-0400 BP Systolic 119 mm[Hg] Raffy Richardson [facility] [place] 06-03-2019 12:15-0400 Pulse (Heart Rate) 68 /min Raffy Currie [facility], [place] 04-11-2019 07:31-0400 Body weight 109.59 kg Lorri Carmen [facility] [place] 04-11-2019 07:31-0400 BP Diastolic 86 mm[Hg] Lorri [facility] [place] 04-11-2019 07:31-0400 BP Systolic 137 mm[Hg] Lorir Carmen [facility] [place] 04-11-2019 07:31-0400 Pulse (Heart Rate) 77 /min Lorri Carmen [facility] [place] 09-18-2017 07:08-0500 BMI (Body Mass Index) 33.47 kg/m2 Ayde [employer] Work Phone: 09-18-2017 07:08-0500 Height 180.3 cm [facility] Work Phone: 09-18-2017 07:08-0500 Weight 108.86 kg [facility] Work Phone: Encounters Encounter Date Encounter Type Care Provider Facility Start: 10-20-2023 End: 10-20-2023 ambulatory Carolina Stover MD Work Phone: Cardiology Start: 10-20-2023 End: 10-20-2023 Patient encounter procedure Solitario Cantor DPM Work Phone: [facility] Comment on above: PAD (peripheral antione ry disease) ([facility]) (Primary Dx); Peripheral vascular disease (HCC); Diabetic foot infection (HCC) (HCC); Lower limb ulcer, heel or midfoot, right, with fat layer exposed (HCC) Start: 10-20-2023 End: 10-20-2023 Subsequent hospital visit by physician [facility] Radiology Comment on above: PAD (peripheral antione ry disease) (HCC) [I73.9] Start: 10-12-2023 Orders Only Angeles Samano RN [facility] Comment on above: PAD (peripheral antione ry disease) (HCC) (Primary Dx) Start: 10-03-2023 Follow-up encounter Flor Vitale MD Work Phone: [facility] Start: 10-03-2023 ICD Remote F/U Flor Abbott i, MD Work Phone: [facility] Start: 10-03-2023 End: 10-04-2023 ambulatory SHAHAB PATTONN [facility] Start: 09-23-2023 Follow-up encounter Flor Vitale MD Work Phone: [facility] Start: 09-23-2023 ICD Remote F/U Flor Abbott i, MD Work Phone: [facility] Start: 09-22-2023 Follow-up encounter Flor Vitale MD Work Phone: [facility] Start: 09-22-2023 ICD Remote F/U Flor Abbott i, MD Work Phone: [facility] Start: 09-19-2023 Orders Only Jeff willard MD Work Phone: [facility] Comment on above: Pulmonary hypertensi on (CMS/HCC) (Primary Dx) Start: 09-18-2023 End: 09-19-2023 ambulatory LUC ZACARIAS Facility:[facility] Start: 09-18-2023 End: 09-18-2023 ambulatory JEFF CERDA Facility:[facility] Start: 09-18-2023 End: 09-19-2023 Patient encounter procedure [...] End: 09-15-2023 Evaluation and management of inpatient COALL ÁLVAREZ [facility] Start: 09-13-2023 End: 09-15-2023 Evaluation and management of inpatient Shahab Buckley MD Work Phone: [facility] Medical Observation Start: 09-06-2023 End: 09-06-2023 ambulatory TIMMICHAEL [facility] Amb[facility] Start: 09-06-2023 End: 09-06-2023 Office outpatient visit 40 minutes Shahab Buckley MD Work Phone: [facility] Comment on above: Critical limb ischem ia of right lower extremity (HCC) (Primary Dx) Start: 08-30-2023 End: 08-31-2023 ambulatory SHAHAB BUCKLEY [facility] Start: 08-24-2023 Documentation procedure Angeles Samano RN [facility] Start: 07-12-2023 End: 07-13-2023 ambulatory [facility] Facility:[facility] Start: 07-12-2023 End: 07-12-2023 Patient encounter procedure Carolina Stover MD Work Phone: Cardiology Comment on above: Chronic systolic HF (heart failure) (HCC) (Primary Dx); Coronary artery disease involving apache coronary artery 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 pectoris; Atrial fibrillation, chronic (HCC) Start: 07-04-2023 Follow-up encounter Flor Vitale MD Work Phone: [facility] Start: 07-04-2023 ICD Remote F/U Flor Abbott i, MD Work Phone: [facility] Start: 06-27-2023 Nursing evaluation o f patient and report Research Coordinator Work Phone: Cardiology Comment on above: Research IRB [id number] AdelerO (Primary Dx) Start: 06-27-2023 Patient entered into trial Research Coordinator Work Phone: [facility] Start: 06-27-2023 End: 06-27-2023 ambulatory YANNICK ZUÑIGA Facility:[facility] Start: 06-27-2023 End: 06-27-2023 Patient encounter procedure Yannick Zuñiga PA-C Work Phone: Cardiology Comment on above: Chronic systolic HF (heart failure) (HCC) (Primary Dx); Paroxysmal atrial fibrillation (HCC); Cardiomyopathy, nonischemic (HCC); Frequent PVCs Start: 06-16-2023 Follow-up encounter Flor Vitale MD Work Phone: [facility] Start: 06-16-2023 End: 06-16-2023 Patient encounter procedure Flor Vitale MD Work Phone: [facility] Comment on above: Paroxysmal atrial fi brillation (HCC) (Primary Dx); Pre-op exam Start: 06-16-2023 Encounter for other preprocedural examination FANY TA [facility] Start: 06-16-2023 End: 06-17-2023 ambulatory FLOR VITALE Facility:[facility] Start: 06-16-2023 End: 06-16-2023 Preprocedural examination done Fany Ta APRN.MANAGEMENT TECH Work Phone: [facility] Work Phone: Start: 06-15-2023 ambulatory Flor Abbott i, MD Work Phone: Cardiology Comment on above: Patient Education (E PS-DCC) Start: 06-12-2023 Follow-up encounter Flor Vitale MD Work Phone: [facility] Start: 06-12-2023 ICD Remote F/U Flor Abbott i, MD Work Phone: [facility] Start: 06-07-2023 Telephone encounter [employer] [facility] Work Phone: Cardiology Start: 06-05-2023 Follow-up encounter Flor Vitale MD Work Phone: [facility] Start: 06-05-2023 ICD Remote F/U Flro Abbott i, MD Work Phone: [facility] Start: 05-24-2023 Telephone encounter Flor Vitale MD Work Phone: Cardiology Comment on above: Future Appointment ( DCC) Start: 05-19-2023 Follow-up encounter Flor Vitale MD Work Phone: [facility] Start: 05-19-2023 ICD Remote F/U Flor Abbott i, MD Work Phone: [facility] Start: 05-16-2023 Telephone encounter Flor Vitale MD Work Phone: Cardiology Start: 05-12-2023 Follow-up encounter Flor Vitale MD Work Phone: [facility] Start: 05-12-2023 End: 05-12-2023 Orders Only Flor Vitale MD Work Phone: Cardiology Start: 05-12-2023 Patient encounter procedure Flor Vitale MD Work Phone: [facility] Start: 04-26-2023 End: 04-27-2023 ambulatory BRENDA TERRELL II Facility:[facility] Start: 04-26-2023 End: 04-26-2023 ambulatory Arrhythm[facility] Work Phone: Cardiology Comment on above: Event (14 days) Start: 04-26-2023 End: 04-26-2023 Patient encounter procedure Yannick Zuñiga PA-C Work Phone: Cardiology Comment on above: Chronic systolic HF (heart failure) (HCC) (Primary Dx); Dysuria; Frequent PVCs; Chronic combined systolic and diastolic congestive heart failure (HCC); Cardiomyopathy, nonischemic (HCC) Start: 04-19-2023 Telephone encounter Zeina WELLS Comment on above: Follow Up Phone Call (RC all clear ) Start: 04-14-2023 ambulatory Mikael Henry [facility] Work Phone: [facility] Start: 04-14-2023 Telephone encounter Cain Higginbotham MAIL CLERK [employer] [facility] A16 Comment on above: Follow Up Phone Call (Non-Urgent:Medication Concerns /) Post Dc Program Call - Needs Attn Transition Of Care ( TCM Pharmacy-Hospital discharge 04/13/23/); Heart Failure Start: 04-07-2023 Follow-up encounter Flor Vitale MD Work Phone: [facility] Start: 04-07-2023 Patient encounter procedure Flor Vitale MD Work Phone: [facility] Start: 04-03-2023 End: 04-05-2023 ambulatory CHETE XAVIER-NLIAM Facility:[facility] Start: 03-28-2023 Rx Change Jef little MD Work Phone: [facility] DO Work Phone: Start: 03-24-2023 Follow-up encounter Flor Vitale MD Work Phone: [facility] Start: 03-24-2023 Patient encounter procedure Flor Vitale MD Work Phone: [facility] Start: 03-24-2023 End: 03-27-2023 ambulatory BRENDA TERRELL II Facility:[facility] Start: 03-23-2023 End: 03-23-2023 ambulatory BRENDA B TERRELL II Facility:[facility] Start: 03-23-2023 End: 03-23-2023 ambulatory BRENDA TERRELL II Facility:[facility] Start: 03-21-2023 Orders Only Mira Willoughby MD Work Phone: Cardiology Comment on above: Heart disease (Prima ry Dx) Start: 03-20-2023 End: 04-13-2023 Evaluation and management of inpatient CHETE XAVIER-NLIAM Facility:[facility] Start: 03-20-2023 End: 03-21-2023 ambulatory [facility] Start: 03-18-2023 ambulatory Facility:[id number] Start: 03-17-2023 ambulatory Facility:[id number] Start: 03-16-2023 ambulatory Facility:[id number] Start: 03-15-2023 ambulatory Facility:[id number] Start: 03-15-2023 End: 03-18-2023 Evaluation and management of inpatient Osiris Duran Facility:[facility] Start: 03-14-2023 End: 03-15-2023 [facility] Start: 03-07-2023 End: 03-08-2023 ambulatory [facility] Start: 02-23-2023 End: 02-24-2023 ambulatory [facility] Start: 02-20-2023 End: 02-23-2023 [facility] Start: 02-20-2023 End: 02-22-2023 Subsequent hospital visit by physician Phuong Chao [address] Radiology Comment on above: 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; 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, unspecified vessel or lesion type; Hypertension, unspecified type; Vitamin D deficiency disease; Cardiomyopathy, unspecified type (HCC) Start: 02-15-2023 End: 02-16-2023 [facility] Start: 01-07-2023 Refill Shahab godfrey MD Work Phone: [facility] Comment on above: Medication Refill Start: 01-04-2023 End: 01-05-2023 [facility] Start: 01-04-2023 End: 01-04-2023 Subsequent hospital visit by physician Rogerio Gruber [facility] Medication Manangement Comment on above: LV (left ventricular ) 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 (Primary Dx); 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 Start: 12-29-2022 End: 12-30-2022 ambulatory GURWINDER TRUONG Facility:[facility] Start: 11-23-2022 End: 11-24-2022 ambulatory [facility] Start: 11-23-2022 End: 11-23-2022 Subsequent hospital visit by physician Rogerio Gruber [facility] Medication Manangement Comment on above: LV (left ventricular ) 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 (Primary Dx); 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 Start: 10-26-2022 End: 10-27-2022 [facility] Start: 10-26-2022 End: 10-26-2022 Subsequent hospital visit by physician Rogerio Gruber [facility] Medication Manangement Comment on above: LV (left ventricular ) 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 (Primary Dx); 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 Start: 09-21-2022 End: 09-22-2022 [facility] Start: 09-21-2022 End: 09-21-2022 Subsequent hospital visit by physician Rogerio Gruber [facility] Medication Manangement Comment on above: LV (left ventricular ) 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 (Primary Dx); 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 Start: 08-26-2022 End: 08-26-2022 Office outpatient visit 15 minutes Shahab Buckley MD Work Phone: [facility] Comment on above: Carotid stenosis, sy mptomatic w/o infarct, right (Primary Dx); Left carotid stenosis Start: 08-24-2022 End: 08-25-2022 [facility] Start: 08-24-2022 End: 08-24-2022 [facility] Comment on above: LV (left ventricular ) 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 (Primary Dx); MCC (current) use of anticoagulants Start: 07-27-2022 End: 07-28-2022 [facility] Start: 07-27-2022 End: 07-27-2022 [facility] Comment on above: LV (left ventricular ) 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 (Primary Dx); 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 Start: 06-29-2022 End: 06-30-2022 [facility] Start: 06-01-2022 End: 06-02-2022 [facility] Start: 06-01-2022 End: 06-01-2022 Subsequent hospital visit by physician Rogerio Gruber [facility] Medication Manangement Comment on above: LV (left ventricular ) 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 (Primary Dx); MCC (current) use of anticoagulants Start: 04-27-2022 End: 04-28-2022 [facility] Start: 04-27-2022 End: 04-27-2022 Subsequent hospital visit by physician Rogerio Gruber [facility] Medication Manangement Comment on above: LV (left ventricular ) 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 (Primary Dx); 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 Start: 03-30-2022 End: 03-31-2022 [facility] Start: 03-30-2022 End: 03-30-2022 Subsequent hospital visit by physician Rogerio Gruber [facility] Medication Manangement Comment on above: LV (left ventricular ) 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 (Primary Dx); MCC (current) use of anticoagulants Start: 03-16-2022 End: 03-16-2022 Subsequent hospital visit by physician Rogerio Gruber [facility] Medication Manangement Comment on above: LV (left ventricular ) 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 (Primary Dx); 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 Start: 03-02-2022 End: 03-02-2022 Subsequent hospital visit by physician Rogerio Gruber [facility] Medication Manangement Comment on above: LV (left ventricular ) 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 (Primary Dx); MCC (current) use of anticoagulants Start: 02-22-2022 End: 02-24-2022 Subsequent hospital visit by physician Marion Bell [facility] Comment on above: 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; 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, unspecified vessel or lesion type; Hypertension, unspecified type; Vitamin D deficiency disease; Cardiomyopathy, unspecified type (HCC); SOB (shortness of breath) LV (left ventricular ) 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 (Primary Dx); MCC (current) use of anticoagulants 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; 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, unspecified vessel or lesion type; Hypertension, unspecified type; Vitamin D deficiency disease; Cardiomyopathy, unspecified type (HCC); SOB (shortness of breath); Other specified diabetes mellitus without complication, with long-term current use of insulin (HCC) Coronary artery dise ase, unspecified vessel or lesion type, unspecified whether angina present, unspecified whether apache or transplanted heart Start: 02-11-2022 End: 02-11-2022 Postop follow up visit related to original px Shahab Buckley MD Work Phone: [facility] Comment on above: Carotid stenosis, sy mptomatic w/o infarct, right (Primary Dx); Symptomatic stenosis of right carotid artery Start: 02-03-2022 End: 02-03-2022 Subsequent [facility] Comment on above: LV (left ventricular ) 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 (Primary Dx); MCC (current) use of anticoagulants Start: 01-27-2022 End: 01-29-2022 Subsequent [facility] Comment on above: LV (left ventricular ) 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 (Primary Dx); 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 Start: 01-25-2022 Refill Angeles Samano RN [facility] Comment on above: Medication Refill Start: 01-20-2022 Refill Mary Jane delgado PA-C Work Phone: [facility] Comment on above: Medication Refill Start: 01-20-2022 End: 01-20-2022 Subsequent [facility] Comment on above: LV (left ventricular ) 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 (Primary Dx); 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 Start: 01-13-2022 End: 01-13-2022 Subsequent hospital visit by physician Raffy Richardson [facility] Medication Manangement Comment on above: LV (left ventricular ) 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 (Primary Dx); MCC (current) use of anticoagulants Start: 01-08-2022 End: 01-10-2022 [facility] Comment on above: Left arm pain Start: 01-07-2022 End: 01-07-2022 Emergency department patient visit Lonnie Hart MD Work Phone: [facility] ED Comment on above: Left arm pain (Prima ry Dx) Start: 01-06-2022 End: 01-06-2022 Subsequent [facility] Comment on above: LV (left ventricular ) 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 (Primary Dx); 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 Start: 12-28-2021 End: 12-29-2021 Evaluation and management of inpatient Shahab Buckley MD Work Phone: [facility] Start: 12-22-2021 End: 12-22-2021 Subsequent [facility] Comment on above: LV (left ventricular ) 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 (Primary Dx); 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 Start: 12-18-2021 Documentation procedure Shahab Buckley MD Work Phone: [facility] Start: 12-14-2021 Admission to [facility] Shahab Buckley MD Work Phone: [facility] Comment on above: Symptomatic stenosis of right carotid artery (Primary Dx) Start: 12-09-2021 End: 12-09-2021 Subsequent [facility] Comment on above: LV (left ventricular ) 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 (Primary Dx); 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 Start: 12-08-2021 End: 12-08-2021 Office outpatient visit 25 minutes Shahab Buckley MD Work Phone: [facility] Comment on above: Symptomatic stenosis of right carotid artery Start: 11-29-2021 Admission to [facility] Shahab Buckley MD Work Phone: [facility] Comment on above: Elevated serum creat inine (Primary Dx); Atherosclerosis of right carotid artery Start: 11-16-2021 End: 04-12-2022 Subsequent [facility] Comment on above: LV (left ventricular ) 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 (Primary Dx); MCC (current) use of anticoagulants Start: 10-26-2021 End: 10-28-2021 [facility] Comment on above: Central artery occlu leslee of retina, left Start: 08-10-2021 End: 08-10-2021 Subsequent [facility] Comment on above: LV (left ventricular ) 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 (Primary Dx); MCC (current) use of anticoagulants Start: 06-07-2021 End: 06-07-2021 Subsequent [facility] Comment on above: LV (left ventricular ) 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 (Primary Dx); 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 Start: 04-23-2021 End: 04-23-2021 Subsequent [facility] Comment on above: LV (left ventricular ) 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 (Primary Dx); MCC (current) use of anticoagulants Start: 03-01-2021 End: 03-01-2021 Subsequent hospital visit by physician Lorri Carmen [facility] Work Phone: [facility] Medication Manangement Comment on above: LV (left ventricular ) mural thrombus (Primary Dx); 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 Start: 02-25-2021 End: 02-25-2021 Subsequent hospital visit by physician Jeff Cerda MD Work Phone: [facility] Laboratory Comment on above: 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; 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, unspecified vessel or lesion type; Hypertension, unspecified type; Vitamin D deficiency disease Start: 12-29-2020 End: 12-29-2020 Subsequent [facility] Comment on above: LV (left ventricular ) mural thrombus (Primary Dx); 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 Start: 11-23-2020 End: 11-23-2020 ambulatory FREEBORN Beni [facility] Start: 11-23-2020 End: 11-23-2020 Subsequent hospital visit by physician Ayde Matthews DO Work Phone: OR Comment on above: Post-op pain (Primar y Dx) Start: 11-17-2020 End: 11-17-2020 [facility] Comment on above: MCC (current) use of anticoagulants; LV (left ventricular) mural thrombus Start: 11-09-2020 End: 11-14-2020 ambulatory AYDE Beni [facility] Start: 11-09-2020 End: 11-13-2020 Subsequent hospital visit by physician Bina Roberts 1 [facility] Pre-Admit Testing Start: 11-02-2020 End: 11-04-2020 Subsequent hospital visit by physician [facility] Ultrasound Room [facility] Ultrasound Comment on above: Epigastric pain Start: 08-25-2020 End: 08-27-2020 Subsequent hospital visit by physician [facility] Echo Room [facility] ECHO Comment on above: Cardiomyopathy, unsp ecified type (HCC); SOB (shortness of breath) 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; 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, unspecified vessel or lesion type; Hypertension, unspecified type; Vitamin D deficiency disease; Other specified diabetes mellitus without complication, with long-term current use of insulin (HCC) Start: 08-14-2020 End: 08-14-2020 Subsequent [facility] Comment on above: 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; LV (left ventricular) mural thrombus Start: 05-14-2020 End: 05-14-2020 Subsequent hospital visit by physician Lorri Carmen [facility] Medication Manangement Comment on above: 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; LV (left ventricular) mural thrombus Start: 04-02-2020 End: 04-02-2020 Subsequent hospital visit by physician Lorri Carmen Work Phone: [facility] Medication Manangement Comment on above: 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; LV (left ventricular) mural thrombus Start: 02-26-2020 End: 02-26-2020 Subsequent hospital visit by physician Jeff [facility] Comment on above: 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; 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, unspecified vessel or lesion type; Hypertension, unspecified type; Vitamin D deficiency disease; Shortness of breath Start: 02-20-2020 End: 02-20-2020 Subsequent hospital visit by physician Lorri Carmen Work Phone: [facility] Medication Manangement Comment on above: MCC (current) use of anticoagulants; LV (left ventricular) mural thrombus Start: 01-21-2020 End: 01-21-2020 Subsequent hospital visit by physician Jeff [facility] Laboratory Start: 01-09-2020 End: 01-09-2020 Subsequent hospital visit by physician Lorri Carmen Work Phone: [facility] Medication Manangement Comment on above: 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; LV (left ventricular) mural thrombus Start: 10-17-2019 End: 10-17-2019 Subsequent hospital visit by physician Lorri Carmen Work Phone: [facility] Medication Manangement Comment on above: 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; LV (left ventricular) mural thrombus Start: 2019 End: 2019 Subsequent hospital visit by physician Jeff [facility] Laboratory Comment on above: Kidney insufficiency Start: 09-02-2019 End: 09-02-2019 Subsequent hospital visit by physician Jeff Cerda MD Other Phone: [facility] Laboratory Comment on above: 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; 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, unspecified vessel or lesion type; Hypertension, unspecified type; Vitamin D deficiency disease; Shortness of breath Start: 09-02-2019 End: 09-02-2019 Subsequent hospital visit by physician Raffy Richardson [facility] Medication Manangement Comment on above: 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; LV (left ventricular) mural thrombus Start: 08-19-2019 End: 08-21-2019 Subsequent hospital visit by physician Phuong Gaston [facility] Comment on above: Shortness of breath Cardiomyopathy, unsp ecified type (HCC); Shortness of breath Arrived Start: 08-14-2019 End: 08-14-2019 Subsequent hospital visit by physician Jeff Cerda MD Other Phone: [facility] Comment on above: Elevated bilirubin; Calculus of gallbladder without cholecystitis without obstruction Start: 08-12-2019 End: 08-12-2019 Emergency department patient visit Eloina Pat MD Work Phone: [facility] ED Comment on above: Acute on chronic con gestive heart failure, unspecified heart failure type (HCC) (Primary Dx); 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, unspecified vessel or lesion type; Hypertension, unspecified type; Other specified diabetes mellitus without complication, with long-term current use of insulin (HCC); Cardiomyopathy, unspecified type (HCC); Shortness of breath; Elevated bilirubin; Calculus of gallbladder without cholecystitis without obstruction Start: 06-03-2019 End: 06-03-2019 Subsequent hospital visit by physician Raffy Richardson [facility] Medication Manangement Comment on above: MCC (current) use of anticoagulants; LV (left ventricular) mural thrombus Start: 04-11-2019 End: 04-11-2019 Subsequent hospital visit by physician Lorri Carmen [facility] Medication Manangement Comment on above: MCC (current) use of anticoagulants; LV (left ventricular) mural thrombus Start: 10-31-2017 Ambulatory [facility] Start: 10-18-2017 End: 10-19-2017 Ambulatory [facility] Start: 10-17-2017 Ambulatory [facility] Start: 09-25-2017 Ambulatory [facility] Start: 09-18-2017 End: 09-19-2017 Ambulatory AYDE NICOLE [facility] Start: 09-18-2017 End: 09-18-2017 Ambulatory Ayde Nicole Work Phone: [facility] Start: 09-06-2017 End: 09-06-2017 Ambulatory Ayde Nicole Facility:[place] Start: 07-06-2017 End: 07-07-2017 Ambulatory DEFAULT PHYSICIAN Facility:[facility] Procedures Date Procedure Procedure Detail Performing Clinician [...] Work Phone: Start: 09-14-2023 Assay of magnesium Jeand mary Geris DO Work Phone: Start: 09-14-2023 Cta abdl [...] Comment: Speci men Type: BLOOD SPECIMENOrdering Facility: [facility] Address: [address] [place] [id number] Performed By: #### T SCR ####CC MAIN BLOOD BANKCLIA [id number] [address] Start: 03-24-2023 ICD CLINIC CHECK Guzman Vitale [...] MD Start: 12-29-2021 TTE w or wo jameson wcon,Doppler Sadiq Elizondo MD Work Phone: Start: 12-29-2021 Glucose measurement Puma Buckley MD Work Phone: Start: 12-29-2021 Prothrombin time Susy Hernandez [facility],PharmD Start: 12-28-2021 Glucose measurement Puma Buckley MD [...] Work Phone: Start: 08-10-2021 Prothrombin time Histor ical Provider Start: 06-07-2021 Prothrombin time Histor ical Provider Start: 04-23-2021 Prothrombin time Histor ical Provider Start: 03-01-2021 Prothrombin time Histor ical Provider Start: 02-25-2021 Ecg routine ecg w/le ast 12 lds w/i&r Rafa Nicole MD Work Phone: Start: 02-25-2021 Lipid panel Rafa red MD Work Phone: Start: 02-25-2021 PATIENT FASTING? Rafa Nicole MD Work Phone: Start: 02-25-2021 End: 02-25-2021 Hemoglobin glycosylated a1c Jeff lozano MD Work Phone: Start: 12-29-2020 Prothrombin time Histor ical Giulia THURSTON Start: 11-23-2020 Glucose blood reagent strip Ayde [...] Work Phone: Start: 08-25-2020 Lipid panel Rafa red Work Phone: Start: 08-25-2020 PATIENT FASTING? Rafa [...] Treatment Date Care Activity Detail Author Start: 10-04-2024 Creatinine measurement Serum Creatinine [facility] Start: 09-18-2024 BP Controlled (<130/80) BP Controlled (<130/80) [facility] Start: 09-15-2024 Complete blood count Hemoglobin/Hematocrit [facility] Start: 09-15-2024 Creatinine measurement Serum Creatinine [facility] Start: 07-12-2024 BP Controlled (<130/80) BP Controlled (<130/80) [facility] Start: 07-12-2024 Serum Creatinine Serum Creatinine [facility] Start: 06-27-2024 BP Controlled (<130/80) BP Controlled (<130/80) [facility] Start: 06-16-2024 BP Controlled (<130/80) BP Controlled (<130/80) [facility] Start: 06-16-2024 Serum Creatinine Serum Creatinine [facility] Start: 04-26-2024 BP Controlled (<130/80) BP Controlled (<130/80) [facility] Start: 04-26-2024 Serum Creatinine Serum Creatinine [facility] Start: 04-13-2024 HEMOGLOBIN/HEMATOCRIT HEMOGLOBIN/HEMATOCRIT [facility] Start: 04-13-2024 SERUM CREATININE SERUM CREATININE [facility] Start: 04-07-2024 HEMOGLOBIN/HEMATOCRIT HEMOGLOBIN/HEMATOCRIT [facility] Start: 04-07-2024 SERUM CREATININE SERUM CREATININE [facility] Start: 03-24-2024 HEMOGLOBIN/HEMATOCRIT HEMOGLOBIN/HEMATOCRIT [facility] Start: 03-23-2024 SERUM CREATININE SERUM CREATININE [facility] Start: 03-21-2024 HEMOGLOBIN/HEMATOCRIT HEMOGLOBIN/HEMATOCRIT [facility] Start: 03-21-2024 Hepatitis B screening URINE ALBUMIN:CREATININE RATIO [facility] Start: 03-21-2024 SERUM CREATININE SERUM CREATININE [facility] Start: 03-21-2024 Urine screening for protein Urine Microalbumin [facility] Start: 02-21-2024 GFR test (Diabetes, CKD 3-4, OR last GFR 15-59) GFR test (Diabetes, CKD 3-4, OR last GFR 15-59) [facility] Start: 02-21-2024 Hemoglobin A1c measurement A1C test (Diabetic or Prediabetic) [facility] Start: 02-21-2024 Hepatitis B surface antibody level LDL Cholesterol [facility] Start: 02-21-2024 Lipid panel Lipids [facility] Start: 11-09-2023 End: 12-11-2024 Ultrasound ankle / brachial indices extremity complete Ultrasound ankle / brachial indices extremity complete Vascular Ultrasound Routine PAD (peripheral artery disease) ([facility]) Expected: 11/09/2023, Expires: 12/11/2024 [facility] Work Phone: Comment on above: Expected: 11/09/2023, Expires: Start: 09-21-2023 Hemoglobin A1c measurement [facility] Start: 09-21-2023 Hemoglobin A1c/Hemoglobin.total in Blood HBA1C [facility] Start: 09-18-2023 End: 12-18-2023 Basic metabolic 2000 panel - Serum or Plasma BASIC METABOLIC [facility] Lab Routine Chronic systolic HF (heart failure) ([facility]) Expected: 09/18/2023, Expires: 12/18/2023 [facility] Work Phone: Comment on above: Expected: 09/18/2023, Expires: Start: 09-18-2023 End: 12-18-2023 Natriuretic peptide.B prohormone N-Terminal [Mass/volume] in Serum or Plasma NT PRO BNP Lab Routine Chronic systolic HF (heart failure) ([facility]) Expected: 09/18/2023, Expires: 12/18/2023 [facility] Work Phone: Comment on above: Expected: 09/18/2023, Expires: Start: 09-06-2023 End: 09-06-2023 Patient encounter procedure 09/06/2023 9:30 AM EST Office Visit [facility] [address] [place] [address] Shahab Buckley MD [address] [place] [id number] [facility] Start: 08-30-2023 End: 08-30-2023 Patient encounter procedure [facility] Start: 08-07-2023 Advance Directive Discussion Advance Directive Discussion [facility] Start: 07-12-2023 End: 10-11-2023 Comprehensive metabolic 2000 panel - Serum or Plasma COMP METABOLIC PANEL Lab STAT Chronic systolic HF (heart failure) ([facility]) Expected: 07/12/2023, Expires: 10/11/2023 [facility] Work Phone: Comment on above: Expected: 07/12/2023, Expires: Start: 07-12-2023 End: 10-11-2023 Magnesium [Mass/volume] in Serum or Plasma MAGNESIUM BLD Lab STAT Chronic systolic HF (heart failure) ([facility]) Expected: 07/12/2023, Expires: 10/11/2023 [facility] Work Phone: Comment on above: Expected: 07/12/2023, Expires: Start: 07-12-2023 End: 10-11-2023 Natriuretic peptide.B prohormone N-Terminal [Mass/volume] in Serum or Plasma NT PRO BNP Lab STAT Chronic systolic HF (heart failure) ([facility]) Expected: 07/12/2023, Expires: 10/11/2023 [facility] Work Phone: Comment on above: Expected: 07/12/2023, Expires: Start: 04-07-2023 Covid-19 Vaccine ( season) Covid-19 Vaccine ( season) [facility] Start: 04-07-2023 Influenza vaccination [facility] Start: 03-29-2023 End: 03-29-2023 Patient encounter procedure 03/29/2023 Appointment [facility]acy [facility] Start: 03-07-2023 Influenza [facility] Start: 02-27-2023 End: 02-27-2023 Patient encounter procedure 02/27/2023 Office Visit Cardiology Rafa Nicole MD [address] [place], [place] [phone] [facility] Clinical Program Manager Start: 02-23-2023 End: 02-23-2023 Patient encounter procedure 02/23/2023 Appointment Echocardiography Rafa Nicole MD [address] [place] [id number] [facility] Start: 02-22-2023 GFR test (Diabetes, CKD 3-4, OR last GFR 15-59) GFR test (Diabetes, CKD 3-4, OR last GFR 15-59) [facility] Start: 02-22-2023 Hemoglobin A1c measurement A1C test (Diabetic or Prediabetic) [facility] Start: 02-22-20[address] [facility] [employer] Start: 02-20-2023 End: 02-20-2023 Patient encounter procedure 02/20/2023 Appointment Echocardiography [facility] Start: 02-15-2023 End: 02-15-2023 Patient encounter procedure 02/15/2023 Appointment [facility]acy [facility] Start: 01-04-2023 End: 01-04-2023 Patient encounter procedure 01/04/2023 [facility] Start: 11-26-2022 Creatinine measurement Creatinine [facility] Start: 11-26-2022 Potassium [Moles/volume] in Serum or Plasma Potassium [facility] Start: 11-23-2022 End: 11-23-2022 Patient encounter procedure 11/23/2022 [facility] Start: 10-26-2022 End: 10-26-2022 Patient encounter procedure 10/26/2022 Appointment [facility] Start: 09-21-2022 End: 09-21-2022 Patient encounter procedure 09/21/2022 [facility] Start: 2022 ADVANCE DIRECTIVE DISCUSSION ADVANCE DIRECTIVE DISCUSSION [facility] Start: 2022 Fall risk assessment Falls Risk Assessment [facility] Start: 2022 Pneumococcal Vaccine: Age 65+ (1 - PCV) Pneumococcal Vaccine: Age 65+ (1 - PCV) [facility] Start: 2022 Pneumococcal Vaccine: Age 65+ (1 of 1 - PCV) Pneumococcal Vaccine: Age 65+ (1 of 1 - PCV) [facility] Start: 09-06-2022 Hemoglobin A1c measurement A1C test (Diabetic or Prediabetic) [facility] Start: 08-26-2022 End: 08-26-2022 Patient encounter procedure [facility] Start: 08-25-2022 Hemoglobin A1c measurement A1C [facility] Start: 08-24-2022 End: 08-24-2022 Patient encounter procedure 08/24/2022 [facility] Start: 08-19-2022 End: 08-19-2022 Patient encounter procedure [facility] Start: 06-29-2022 End: 06-29-2022 Patient encounter procedure 06/29/2022 [facility] Start: 06-01-2022 End: 06-01-2022 Patient encounter procedure 06/01/2022 [facility] Start: 04-27-2022 End: 04-27-2022 Patient encounter procedure 04/27/2022 [facility] Start: 04-07-2022 Influenza vaccination [facility] Start: 03-30-2022 End: 03-30-2022 Patient encounter procedure 03/30/2022 [facility] Start: 03-16-2022 End: 03-16-2022 Patient encounter procedure 03/16/2022 Appointment [facility] Start: 03-07-2022 Influenza vaccination Flu vaccine (#1) [facility] Start: 03-06-2022 Hemoglobin A1c measurement A1C [facility] Start: 03-02-2022 End: 03-02-2022 Patient encounter procedure 03/02/2022 Appointment [facility] Start: 02-28-2022 End: 02-28-2022 Patient encounter procedure [facility] Clinical Program Manager Start: 02-25-2022 Creatinine measurement Creatinine monitoring [facility] Start: 02-25-2022 Hemoglobin A1c measurement A1C test (Diabetic or Prediabetic) [facility] Start: 02-25-2022 Lipid panel [facility] Start: 02-25-2022 Potassium monitoring Potassium monitoring [facility] Start: 02-25-2022 Screening for malignant neoplasm of colon [facility] Start: 02-11-2022 End: 02-11-2022 Patient encounter procedure [facility] Start: 02-10-2022 End: 02-10-2022 Patient encounter procedure 02/10/2022 Appointment [facility] Start: 02-03-2022 End: 02-03-2022 Patient encounter procedure 02/03/2022 Appointment [facility] Start: 01-29-2022 End: 03-31-2022 Carotid artery doppler assessment Ultrasound doppler carotid Vascular Ultrasound Routine Carotid stenosis, symptomatic w/o infarct, right Expected: 01/29/2022, Expires: 03/31/2022 [facility] Work Phone: Comment on above: Expected: 01/29/2022, Expires: Start: 01-27-2022 End: 01-27-2022 Patient encounter procedure 01/27/2022 Appointment [facility] Start: 01-20-2022 End: 01-20-2022 Patient encounter procedure 01/20/2022 Appointment [facility] Start: 01-13-2022 End: 01-13-2022 Patient encounter procedure 01/13/2022 Appointment [facility] Start: 01-07-2022 End: 01-07-2023 VL DUP UPPER EXTREMITY VENOUS LEFT VL DUP UPPER EXTREMITY VENOUS LEFT Imaging Routine Left arm pain Expected: 01/07/2022, Expires: 01/07/2023 [facility]: Comment on above: Expected: 01/07/2022, Expires: Start: 01-06-2022 End: 01-06-2022 Patient encounter procedure 01/06/2022 Appointment Pharmacy [facility] Start: 12-28-2021 End: 12-28-2021 Admission to same day surgery center 12/28/2021 Surgery Radiology Shahab Buckley MD [address] [place], [place] [phone] TRANSCAROTID ARTERY REVASCULARIZATION [facility] Interventional Radiology Comment on above: TRANSCAROTID ARTERY REVASCULARIZATION Start: 12-28-2021 Subsequent hospital visit by physician 12/28/2021 Hospital Encounter Cardiology Shahab Buckley MD [address] [place] [address] [facility] Procedural Care Unit Start: 12-28-2021 End: 12-28-2021 TRANSCAROTID ARTERY REVASCULARIZATION TRANSCAROTID ARTERY REVASCULARIZATION Symptomatic stenosis of right carotid artery 12/28/2021 12:30 PM EDT [facility] Start: 12-09-2021 End: 12-09-2021 Patient encounter procedure 12/09/2021 Appointment Pharmacy [facility] Start: 12-08-2021 End: 12-08-2021 Patient encounter procedure 12/08/2021 Office Visit Cardiology Shahab Buckley MD [address] [place], [place] [phone] [facility] Start: 12-06-2021 End: 12-06-2021 Patient encounter procedure 12/06/2021 Appointment Radiology Shahab Buckley MD [address] [place] [address] [facility] CT Scan Start: 11-23-2021 Creatinine measurement Creatinine monitoring [employer] Phone: Start: 11-23-2021 Potassium monitoring Potassium monitoring [employer] Phone: Start: 11-16-2021 End: 11-16-2021 Patient encounter procedure 11/16/2021 Appointment [facility]acy [facility] Start: 11-14-2021 COVID-19 Vaccine (4 - Booster for Pfizer series) COVID-19 Vaccine (4 - Booster for Pfizer series) [facility] Start: 11-09-2021 Creatinine measurement Creatinine monitoring [employer] Phone: Start: 11-09-2021 Potassium monitoring Potassium monitoring [employer] Phone: Start: 09-10-2021 COVID-19 Vaccine (4 - Booster for Pfizer series) COVID-19 Vaccine (4 - Booster for Pfizer series) [facility] Start: 09-10-2021 COVID-19 VACCINE (4 - Pfizer series) COVID-19 VACCINE (4 - Pfizer series) [facility] Start: 09-06-2021 End: 09-06-2021 Patient encounter procedure 09/06/2021 Appointment [facility]acy [facility] Start: 08-25-2021 Creatinine measurement Creatinine monitoring [facility], [email or web address] Start: 08-25-2021 Lipid panel [facility] Start: 08-25-2021 Potassium monitoring Potassium monitoring [facility], [email or web address] Start: 08-14-2021 Creatinine measurement Creatinine monitoring [facility], [email or web address] Start: 08-14-2021 HbA1c (Bld) [Mass fraction] A1C test (Diabetic or Prediabetic) [facility], [email or web address] Start: 08-14-2021 Hemoglobin A1c measurement A1C test (Diabetic or Prediabetic) [employer] Phone: Start: 08-14-2021 Potassium monitoring Potassium monitoring [employer], [place] Start: 07-19-2021 End: 07-19-2021 Patient encounter procedure 07/19/2021 Appointment [facility]acy [facility] Start: 06-07-2021 End: 06-07-2021 Patient encounter procedure 06/07/2021 [facility] Start: 05-02-2021 COVID-19 Vaccine (3 - Pfizer booster) COVID-19 Vaccine (3 - Pfizer booster) [facility] Work Phone: Start: 04-19-2021 End: 04-19-2021 Patient encounter procedure 04/19/2021 Appointment Pharmacy [facility] Start: 04-07-2021 Influenza vaccination [facility] Start: 03-01-2021 End: 03-01-2021 Office Visit [facility] Clinical Program Manager Start: 02-25-2021 Creatinine measurement Creatinine monitoring [facility] [place] Start: 02-25-2021 Lipid panel Lipid screen [place], [place] Start: 02-25-2021 Potassium monitoring Potassium monitoring [place] Start: 01-29-2021 Microalbumin measurement, urine, quantitative Urine Microalbumin [facility] Start: 01-29-2021 Urine screening for protein [facility] Start: 01-20-2021 Creatinine measurement Creatinine monitoring [facility] [place] Start: 01-20-2021 HbA1c (Bld) [Mass fraction] A1C test (Diabetic or Prediabetic) [place], [place] Start: 01-20-2021 Lipid panel Lipid screen [place] Start: 01-20-2021 Potassium monitoring Potassium monitoring [place] Start: 01-19-2021 End: 01-19-2021 Patient encounter procedure 01/19/2021 Appointment Pharmacy [facility] Start: 12-29-2020 End: 12-29-2020 Appointment 12/29/2020 Appointment Pharmacy [facility] Start: 11-23-2020 End: 11-23-2020 Hospital Encounter [facility] Comment on above: XI ROBOTIC LAPAROSCOPIC CHOLECYSTECTOMY, POSSIBLE OPEN Start: 11-18-2020 End: 11-18-2020 Appointment 11/18/2020 Appointment Pre-Admission Testing [facility] PRE ADMIT Start: 11-17-2020 End: 11-17-2020 Appointment [facility] [place] [facility] Comment on above: Arrived Start: 11-09-2020 Hospital Encounter 11/09/2020 Hospital Encounter Pre-Admission Testing [facility] Pre-Admit Testing Start: 09-29-2020 End: 09-29-2020 Appointment 09/29/2020 Appointment [facility] Start: 2020 Creatinine measurement Creatinine monitoring [facility] Start: 2020 Creatinine monitoring Creatinine monitoring [facility] [place] , [place] Start: 2020 Potassium monitoring Potassium monitoring [facility] [place], [place] Start: 09-02-2020 Creatinine monitoring Creatinine monitoring [employer] Phone: Start: 09-02-2020 Potassium monitoring Potassium monitoring [employer] Phone: Start: 08-31-2020 End: 08-31-2020 Office Visit 08/31/2020 Office Visit Cardiology Rafa Nicole MD [address] [place] [phone] [facility] Clinical Program Manager Start: 08-25-2020 End: 08-25-2020 Appointment 08/25/2020 Appointment Echocardiography [facility] Start: 08-14-2020 Creatinine monitoring Creatinine monitoring [employer] Phone: Start: 08-14-2020 Potassium monitoring Potassium monitoring [employer] Phone: Start: 08-12-2020 Creatinine monitoring Creatinine monitoring [employer] Phone: Start: 08-12-2020 Potassium monitoring Potassium monitoring [employer] Phone: Start: 06-25-2020 End: 06-25-2020 Appointment 06/25/2020 Appointment [facility] Start: 05-14-2020 End: 05-14-2020 Appointment 05/14/2020 Appointment [facility]acy [facility] Start: 04-07-2020 Influenza vaccination [employer], [place]AN Start: 04-02-2020 End: 04-02-2020 Appointment 04/02/2020 Appointment [facility]acy [facility] Start: 03-04-2020 Urine screening for protein Diabetic Alb to Cr ratio (uACR) test [facility] Start: 03-02-2020 End: 03-02-2020 Office Visit 03/02/2020 Office Visit Cardiology Rafa Nicole MD [address] [place] [address] [phone] [facility] Clinical Program Manager Start: 02-27-2020 A1C test (Diabetic or Prediabetic) A1C test (Diabetic or Prediabetic) [place], [place] Start: 02-27-2020 Creatinine monitoring Creatinine monitoring [place], [place] Start: 02-27-2020 HbA1c (Bld) [Mass fraction] A1C test (Diabetic or Prediabetic) [place], [place] Start: 02-27-2020 Lipid panel Lipid screen [place] Start: 02-27-2020 Lipid screen Lipid screen [place], [place] Start: 02-27-2020 Potassium monitoring Potassium monitoring [place] Start: 02-20-2020 End: 02-20-2020 Appointment 02/20/2020 Appointment Pharmacy [facility] Start: 11-28-2019 End: 11-28-2019 Appointment 11/28/2019 Appointment Pharmacy [facility] Start: 11-19-2019 End: 11-19-2019 Office Visit 11/19/2019 Office Visit Cardiology Rafa Nicole MD [address] [place], [place] [phone] [facility] Clinical Program Manager Start: 11-05-2019 End: 11-05-2019 Office Visit 11/05/2019 Office Visit Bariatrics Wagner Jose MD [facility] [place] [phone] [facility] Invasive Bariatric Surg Start: 10-25-2019 End: 10-25-2019 Office Visit 10/25/2019 Office Visit Cardiology Rafa Nicole MD [address] [place] [address] [facility] Clinical Program Manager Start: 10-24-2019 End: 10-24-2019 Hospital Encounter [facility] Comment on above: LAPAROSCOPIC XI ROBOTIC CHOLECYSTECTOMY Start: 10-16-2019 End: 10-16-2019 Appointment 10/16/2019 Appointment [facility]acy [facility] Start: 09-25-2019 End: 09-25-2019 Hospital Encounter [facility] Comment on above: CHOLECYSTECTOMY LAPAROSCOPIC ROBOTIC Start: 09-02-2019 End: 09-02-2019 Office Visit [facility] Clinical Program Manager Start: 08-19-2019 End: 08-19-2019 Patient encounter procedure [facility] Start: 08-13-2019 End: 09-12-2019 Basic metabolic 2000 panel - Serum or Plasma Basic Metabolic Panel Lab Routine Elevated bilirubin Calculus of gallbladder without cholecystitis without obstruction Expected: 08/13/2019, Expires: 09/12/2019 [employer] Phone: Comment on above: Expected: 08/13/2019, Expires: 0 Start: 08-13-2019 End: 09-12-2019 CBC W Auto Differential panel - Blood CBC WITH AUTO DIFFERENTIAL Lab Routine Elevated bilirubin Calculus of gallbladder without cholecystitis without obstruction Expected: 08/13/2019, Expires: 09/12/2019 [employer] Phone: Comment on above: Expected: 08/13/2019, Expires: 0 Start: 08-13-2019 End: 09-12-2019 Comprehensive metabolic 2000 panel - Serum or Plasma Comprehensive Metabolic Panel Lab Routine Elevated bilirubin Calculus of gallbladder without cholecystitis without obstruction Expected: 08/13/2019, Expires: 09/12/2019 [employer] Phone: Comment on above: Expected: 08/13/2019, Expires: 0 Start: 08-13-2019 End: 09-12-2019 Hepatic function 2000 panel - Serum or Plasma Hepatic Function Panel Lab Routine Elevated bilirubin Calculus of gallbladder without cholecystitis without obstruction Expected: 08/13/2019, Expires: 09/12/2019 [employer] Phone: Comment on above: Expected: 08/13/2019, Expires: 0 Start: 07-17-2019 End: 07-17-2019 Appointment 07/17/2019 Appointment [facility]acy [facility] Start: 06-03-2019 End: 06-03-2019 [facility] Start: 04-07-2019 Influenza vaccination Flu vaccine (#1) [place], [place] Start: 12-25-2018 Screening for malignant neoplasm of colon [facility] Start: 2017 Hepatitis B Vaccine (1 of 3 - Risk 3-dose series) Hepatitis B Vaccine (1 of 3 - Risk 3-dose series) [facility] Start: 2017 RSV Vaccine (1 - 1-dose 60+ series) RSV Vaccine (1 - 1-dose 60+ series) [facility] Start: 2017 Zoster vacc, sc ZOSTER VACCINE [facility] Work Phone: Start: 04-07-2017 Influenza vaccination SEQUENTIAL INFLUENZA VACCINE (#1) [facility] Work Phone: Start: 2012 PROSTATE CANCER SCREENING DISCUSSION PROSTATE CANCER SCREENING DISCUSSION [facility] Start: 2012 Prostate specific antigen measurement Prostate Cancer Screening Discussion [facility] Start: 2007 Administration of herpes zoster vaccine Zoster Vaccines (1 of 2) [facility] Start: 2007 Colon cancer screen colonoscopy Colon cancer screen colonoscopy [place] Start: 2007 Screening for malignant neoplasm of colon [facility] Start: 2007 Shingles Vaccine (1 of 2) Shingles Vaccine (1 of 2) [facility] Start: 2007 SHINGRIX VACCINE (1 of 2) SHINGRIX VACCINE (1 of 2) [facility] Start: 2002 COLOGUARD (FIT-DNA) COLOGUARD (FIT-DNA) [facility] Start: 2002 Colonoscopy COLONOSCOPY [facility] Start: 2002 COLORECTAL CANCER SCREENING COLORECTAL CANCER SCREENING [facility] Start: [address] COLONOGRAPHY [facility] Start: 2002 FECAL OCCULT BLOOD FECAL OCCULT BLOOD [facility] Start: 2002 Screening for malignant neoplasm of colon [facility] Start: 2002 SIGMOIDOSCOPY SIGMOIDOSCOPY [facility] Start: 1997 Prostate specific antigen measurement Prostate Specific Antigen (PSA) Screening or Monitoring [facility] Start: 1976 DTaP/Tdap/Td vaccine (1 - Tdap) DTaP/Tdap/Td vaccine (1 - Tdap) [facility] Start: 1976 Hepatitis B vaccine (1 of 3 - Risk 3-dose series) Hepatitis B vaccine (1 of 3 - Risk 3-dose series) [place] Start: 1976 Urine microalbumin profile [facility] Start: 1975 ANNUAL PCP TEAM CHRONIC DISEASE VISIT ANNUAL PCP TEAM CHRONIC DISEASE VISIT [facility] Start: 1975 BP CONTROLLED (<130/80) BP CONTROLLED (<130/80) [facility] in Start: 1975 Diabetic microalbuminuria test Diabetic microalbuminuria test [place], [place] Start: 1975 Diabetic retinal exam Diabetic retinal exam [facility] Start: 1975 Glaucoma screening Diabetic retinal exam [facility] Start: 1975 Hepatitis B surface antibody level LDL CHOLESTEROL [facility] Start: 1975 Hepatitis C screening [facility] Start: 1975 HEPATITIS C SCREENING HEPATITIS C SCREENING [facility] Start: 1975 HIV SCREENING HIV SCREENING [facility] Start: 1975 Urine screening for protein Diabetic microalbuminuria test [facility] Start: 1973 COVID-19 Vaccine (1) COVID-19 Vaccine (1) [facility] [employer] Phone: Start: 1972 HIV screen HIV screen [place], [place] Start: 1972 HIV screening [facility] Start: 1969 COVID-19 Vaccine (1) COVID-19 Vaccine (1) [facility] [employer] Phone: Start: 1969 Depression Screen Depression Screen [facility] Start: 1969 Depression screening using PHQ-9 (Patient Health Questionnaire 9) score Depression Screening (PHQ-2/9) [facility] Start: 1968 DTaP/Tdap/Td vaccine (1 - Tdap) DTaP/Tdap/Td vaccine (1 - Tdap) [facility] [employer] Phone: Start: 1967 [object Object] Diabetic foot exam [facility] Start: 1967 Diabetic foot examination [facility] Start: 1967 Diabetic retinal exam Diabetic retinal exam [place], [place] Start: 1967 Glaucoma screening [facility] Start: 1967 Hepatitis C antibody, confirmatory test DILATED RETINAL EXAM [facility] Start: 1967 Microalbumin measurement, urine, quantitative Urine Microalbumin [facility] Start: 1967 Ophthalmic examination and evaluation Ophthalmology Exam [facility] Start: 1967 Urine screening for protein Urine Microalbumin [facility] Start: 1963 Pneumococcal 0-64 years Vaccine (1 - PCV) Pneumococcal 0-64 years Vaccine (1 - PCV) [facility] Start: 1963 Pneumococcal 0-64 years Vaccine (1 of 1 - PPSV23) Pneumococcal 0-64 years Vaccine (1 of 1 - PPSV23) [place], [place] Start: 1963 Pneumococcal 0-64 years Vaccine (1 of 2 - PPSV23) Pneumococcal 0-64 years Vaccine (1 of 2 - PPSV23) [facility] Start: 1963 Pneumococcal 65+ years Vaccine (1 - PCV) Pneumococcal 65+ years Vaccine (1 - PCV) [facility] Start: 1963 Pneumococcal Vaccine: 65+ (1 - PCV) Pneumococcal Vaccine: 65+ (1 - PCV) [facility] Start: 1963 Pneumococcal Vaccine: 65+ (1 of 2 - PCV) Pneumococcal Vaccine: 65+ (1 of 2 - PCV) [facility] Start: 1961 Pneumococcal Vaccine: 65+ Years (1 - PCV) Pneumococcal Vaccine: 65+ Years (1 - PCV) [facility] Start: 1963 PNEUMOCOCCAL: 65+ (1 - PCV) PNEUMOCOCCAL: 65+ (1 - PCV) [facility] Start: 1960 History and physical examination, annual for health maintenance Wellness Visit [facility] Start: 1957 Hepatitis C screen [facility]: [facility] HEPATITIS C SCREENING HEPATITIS C SCREENING [facility] Work Phone: Start: 1957 Hepatitis C screening Hepatitis C screen [facility] Start: 1957 Prostate specific antigen measurement PSA Level [facility] Start: 1957 Screening colonoscopy COLONOSCOPY [facility] Work Phone: Start: 1957 Screening for malignant neoplasm of colon [facility] Start: 1957 Tetanus vaccination [facility] End: 04-14-2023 Carotid artery doppler assessment Carotid Duplex Vascular Ultrasound Routine Carotid stenosis, symptomatic w/o infarct, right 1 Occurrences starting 02/11/2022 until 04/14/2023 [employer] Work Phone: Comment on above: 1 Occurrences starting 02/11/2022 until 04/14/2023 End: 10-25-2023 Carotid artery doppler assessment Carotid Duplex Vascular Ultrasound Routine Carotid stenosis, symptomatic w/o infarct, right 1 Occurrences starting 08/26/2022 until 10/25/2023 [employer] Work Phone: Comment on above: 1 Occurrences starting 08/26/2022 until 10/25/2023 End: 08-25-2020 ECHO Complete 2D W Doppler W Color ECHO Complete 2D W Doppler W Color Echocardiography Routine Cardiomyopathy, unspecified type (HCC) SOB (shortness of breath) 1 Occurrences starting 08/25/2020 until 08/25/2020 [place] Comment on above: 1 Occurrences starting 08/25/2020 until 08/25/2020 End: 08-19-2019 ECHO Complete 2D W Doppler W Color ECHO Complete 2D W Doppler W Color Echocardiography Routine Cardiomyopathy, unspecified type (HCC) Shortness of breath 1 Occurrences starting 08/19/2019 until 08/19/2019 [employer] Phone: Comment on above: 1 Occurrences starting 08/19/2019 until 08/19/2019 EKG 12 Lead [employer] Phone: EKG 12 Lead EKG 12 Lead ECG Routine ICD (implantable cardioverter-defibrillat or) in 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, unspecified vessel or lesion type Hypertension, unspecified type Vitamin D deficiency disease Cardiomyopathy, unspecified type (HCC) SOB (shortness of breath) 02/22/2022 8:53 AM EDT [facility] [employer] Work Phone: End: 11-23-2020 Glucose [Mass/volume] in Serum or Plasma POCT Glucose Point of Care Testing Routine One Time for 1 Occurrences starting 11/23/2020 until 11/23/2020 [employer] Phone: Comment on above: One Time for 1 Occurrences starting 11/05 until 11/23/2020 End: 04-19-2024 NM PET/CT CARDIAC VIABILITY NM PET/CT CARDIAC VIABILITY Radiology Routine Heart disease 1 Occurrences starting 03/21/2023 until 04/19/2024 [employer] Phone: Comment on above: 1 Occurrences starting 03/21/2023 until 04/19/2024 OUTSIDE VENDOR CARDI AC OUTPATIENT EXTENDED RHYTHM RECORDING (WITHOUT TELEMETRY) OUTSIDE VENDOR CARDIAC OUTPATIENT EXTENDED RHYTHM RECORDING (WITHOUT TELEMETRY) Holter Routine Frequent PVCs Ordered: 04/26/2023 [employer] Phone: Comment on above: Ordered: 04/26/2023 Oxygen therapy [[facility] Data Set] Initiate Oxygen Therapy Protocol Respiratory Care Routine Daily until discontinued starting 11/23/2020 [employer] Phone: Comment on above: Daily until discontinued starting 2020 Phase I & II - meter ed glucose Phase I & II - metered glucose Point of Care Testing Routine As Needed until discontinued starting 11/23/2020 [employer] Phone: Comment on above: As Needed until discontinued starting End: 11-23-2020 POCT potassium POCT potassium Point of Care Testing Routine One Time for 1 Occurrences starting 11/23/2020 until 11/23/2020 [employer] Phone: Comment on above: One Time for 1 Occurrences starting 11/05 until 11/23/2020 End: 11-23-2020 POCT Protime-INR POCT Protime-INR Point of Care Testing Routine One Time for 1 Occurrences starting 11/23/2020 until 11/23/2020 [employer] Phone: Comment on above: One Time for 1 Occurrences starting 11/05 until 11/23/2020 End: 08-19-2019 Stress test, lexiscan Stress test, lexiscan Cardiac Services Routine Shortness of breath 1 Occurrences starting 08/19/2019 until 08/19/2019 [employer] Work Phone: Comment on above: 1 Occurrences starting 08/19/2019 until 08/19/2019 Surgical Pathology Surgical Path ology Lab Routine Release Upon Ordering for 1 Occurrences starting 11/23/2020 [employer] Work Phone: Comment on above: Release Upon Ordering for 1 Occurrences starting 11/23/2020 UA DIP B/O UA DIP B/O Lab R outine Dysuria Ordered: 04/26/2023 [employer] Work Phone: Comment on above: Ordered: 04/26/2023 End: 10-17-2024 US Lower extremity artery - bilateral PVR ANK/VELASCO/TOE NACHO VAS LAB Vascular Lab Routine PAD (peripheral artery disease) (HCC) Peripheral vascular disease (HCC) Diabetic foot infection (HCC) (HCC) Lower limb ulcer, heel or midfoot, right, with fat layer exposed (HCC) 1 Occurrences starting 10/19/2023 until 10/17/[address] [facility] [employer] Work Phone: Comment on above: 1 Occurrences starting 10/19/2023 until 10/17/2024 XR Chest 1 View XR Chest 1 View Imaging STAT 12/28/2021 3:56 PM EDT [facility] Work Phone: End: 11-16-2024 XR Foot - bilateral AP and Lateral and oblique XR FOOT GENERAL 3V AP/LAT/OBL BILATERAL Radiology Routine PAD (peripheral artery disease) (HCC) Peripheral vascular disease (HCC) Diabetic foot infection (HCC) (HCC) Lower limb ulcer, heel or midfoot, right, with fat layer exposed (HCC) 1 Occurrences starting 10/19/2023 until 11/16/[address] [facility] [employer] Work Phone: Comment on above: 1 Occurrences starting 10/19/2023 until 11/16/2024 XR Foot - bilateral AP and Lateral and oblique XR FOOT GENERAL 3V AP/LAT/OBL BILATERAL Radiology Routine PAD (peripheral artery disease) (HCC) Peripheral vascular disease (HCC) Diabetic foot infection (HCC) (HCC) Lower limb ulcer, heel or midfoot, right, with fat layer exposed (HCC) 10/20/2023 7:50 AM EDT [facility] Work Phone: [facility] Immunizations Immunization Date Immunization Notes Care Provider Denia franco 07-16-2021 COVID-19 original vaccine, age 12+ yr, monovalent (PFIZER-BIONTECH - PURPLE TOP) Mira Willoughby MD Work Phone: [facility] Work Phone: 06-06-2017 influenza, seasonal, injectable, preservative free Mira Willoughby MD Work Phone: [facility] Work Phone: 06-06-2017 seasonal influenza, intradermal, preservative free Jeff Cerda MD Work Phone: [facility] 06-06-2017 influenza virus vaccine, unspecified formulation Zeina Roca RN [facility] Payers Date Payer Category Payer Self-pay 2022 Medicare [id number] 2022 Medicare MEDICARE MEDICAR E PART A [id number] 2022-Present [phone] [facility] [id number] [address] [id number] 2017 Unknown 2014 Unknown xxxxxxxxxxxx [id number] [id number] 2014 Unknown [employer] M [employer] [address] [id number] 2014-Present [phone] [address] [place] [address] [id number] [id number] 1959 Unknown [id number] 2.16.840.1.238581.3.249.13 1957 Unknown [id number] 2.16.840.1.616308.3.579.2.175 1957 Unknown [id number] 2.16.840.1.421381.3.579.2.175 1957 Unknown [id number] 2.16.840.1.850167.3.579.2.593 1957 Unknown [id number] 2.16.840.1.618468.3.579.2.356 1957 Unknown [id number] 2.16.840.1.082214.3.579.2.356 1957 Unknown [id number] 2.16.840.1.244998.3.579.2.356 1957 Unknown [id number] 2.16.840.1.672558.3.579.2.356 1957 Unknown [id number] 2.16.840.1.635751.3.579.2.174 1957 Unknown [id number] 2.16.840.1.310357.3.579.2.174 1957 Unknown [id number] 2.16.840.1.446959.3.579.2.174 1957 Unknown [id number] 2.16.840.1.310050.3.579.2.174 1957 Unknown [id number] 2.16.840.1.636898.3.579.2.174 1957 Unknown [id number] 2.16.840.1.111652.3.579.2.174 1957 Unknown [id number] 2.16.840.1.741871.3.579.2.174 1957 Unknown [id number] 2.16.840.1.870321.3.579.2.174 1957 Unknown [id number] 2.16.840.1.686643.3.579.2.174 1957 Unknown [id number] 2.16.840.1.555038.3.579.2.174 1957 Unknown [id number] 2.16.840.1.648723.3.579.2.174 1957 Unknown [id number] 2.16.840.1.388304.3.579.2.174 1957 Unknown [id number] 2.16.840.1.474913.3.579.2.174 1957 Unknown [id number] 2.16.840.1.243710.3.579.2.174 1957 Unknown [id number] 2.16.840.1.170839.3.579.2.174 1957 Unknown [id number] 2.16.840.1.424542.3.579.2.174 1957 Unknown [id number] 2.16.840.1.716293.3.579.2.174 1957 Unknown [id number] 2.16.840.1.902511.3.579.2.174 1957 Unknown [id number] 2.16.840.1.418472.3.579.2.174 1957 Unknown [id number] 2.16.840.1.509211.3.579.2.903 1957 Unknown [id number] 2.16.840.1.884517.3.579.2.903 1957 Unknown [id number] 2.16.840.1.924753.3.579.2.903 1957 Unknown [id number] 2.16.840.1.990374.3.579.2.903 Unknown [id number] 2.16.840.1.957639.3.579.2.531 Unknown [id number] 2.16.840.1.554153.3.579.2.531 Social History Date Type Detail Facility Start: 09-18-2017 Tobacco smoking status NHIS Unknown if ever smoked [facility] Work Phone: Start: 1955 Sex Assigned At Not on file O [facility] Work Phone: Start: 09-02-2019 End: 10-20-2023 Tobacco smoking status NHIS Never smoker [facility] Start: 09-02-2019 End: 02-28-2022 Alcohol intake Current non-drinker of alcohol (finding) [employer] Phone: Start: 10-01-2019 End: 10-20-2023 Tobacco use and exposure Never used [facility] Start: 03-04-2019 End: 03-21-2023 Alcohol intake No [facility] Start: 11-16-2021 End: 08-26-2022 Exposure to SARS-CoV-2 (event) Not sure [employer] Phone: Start: 11-27-2021 End: 09-13-2023 Alcohol intake Current drinker of alcohol (finding) [facility] Start: 11-27-2021 End: 03-21-2023 Alcohol intake [facility] Start: 12-08-2021 Gender identity Identifies as male gender (finding) [facility] Start: 12-08-2021 Sexual orientation Heterosexual (fin ding) [facility] National Score (1-100), lower number is lower risk 67 [facility] Has the electric, gas, oil, or water company threatened to shut off services in your home in past 12Mo No [facility] (I/We) worried whether (my/our) food would run out before (I/we) got money to buy more. Never true [facility] Start: 09-18-2023 Alcohol intake Lifetime non-d joshua (finding) [facility] Are you now , [...] Healthcare Start: 10-04-2023 Alcohol intake Ex-drinker (finding) [facility] NEGATED: Highlighted rowStart: NINF History of tobacco use Passive smoker [facility] Medical Equipment Procedure Code Equipment Code Equipment Origin al Text Equipment Identifier Dates Zinactive Use Cl ip Int L Polymer Luisana Lig Hem O Luisana [id number] Start: 11-23-2020 Zinactive Use Cl ip Int L Polymer Luisana Lig Hem O Luisana [id number] Start: 11-23-2020 Clip Int L Polym er Luisana Lig Hem O Luisana [id number]_[facility] Start: 11-23-2020 Clip Int L Polym er Luisana Lig Hem O Luisana [id number]_[facility] Start: 11-23-2020 Stent 9 X 30mm Transcarotid Enroute - Sn/A [id number])N/A, [id number]_[facility] Start: 12-28-2021 [id number] Start: 04-13-2023 End: 07-02-2024 Comment on above: Use with pen to admi nister insulin three times daily. Closure 6/7fr Vascular Mynx W/Extra Engine Test Cell Technician Min Order 10 - [id number], [id number]_[facility] FDA Start: 10-03-2023 Stent 6.00 X 60 130cm Terrie De - [id number], [id number]_[facility] Start: 10-03-2023 Comment on above: Description: SFA Clinical Notes 08-12-2019 to 10-20-2023 Carolnia Stover MD - 10/20/2023 4:46 PM TIMTCSolitario felipe DPM - 10/20/2023 8:33 AM EDTPatient [facility]All[facility] - Weeks, Mary Alcocer, RT(R) - 10/20/2023 7:20 AM EDT Note Date & Type Note Facility 10-20-2023 Note [facility] 10-20-2023 History of Present illness Narrative Need for perioperative risk assessment for RLE amputation. Does have HFrEF with LVEF of 20% and CAD. He is intermediate risk for intermediate risk procedure. Would suggest using peripheral nerve block but is ok for general anesthesia. STAFF PHYSICIAN: Carolina Stover MD documented in this encounter [facility] 10-20-2023 Note HNO ID: [id number] Author: SOLITARIO CANTOR DPM Service: ? Author Type: Physician Type: Progress Notes Filed: 10/20/2023 08:55 Note Text: PODIATRIC MEDICINE AND SURGERY OFFICE NOTE Complaint: Right foot gangrene HPI: This 68 year old male presents to the clinic today as a surgical referral for Dr. Loyd. Patient presents today with gangrene of his right foot. He is prepared for a amputation as that is what has been discussed with him. Patient's develops gangrene to the right foot and has subsequently had endovascular intervention to the right lower extremity. His perfusion has been optimized. PAST MEDICAL HISTORY Diagnosis Date CAD (coronary artery disease) CKD (chronic kidney disease) stage 3, GFR 30-59 ml/min ([facility]) CVA (cerebral vascular accident) ([facility]) Diabetes type II ([facility]) Essential hypertension Ischemic cardiomyopathy LV (left ventricular) mural thrombus PAST SURGICAL HISTORY Procedure Laterality Date LAYOUT MAN-D IMPLANT ICD IMPLANT SINGLE CHAMBER PCI/STENT No current facility-administered medications for this visit. ALLERGIES No Known Allergies No family history on file. Social History Tobacco Use Smoking status: Never Passive exposure: Never Smokeless tobacco: Never [place] Modifiable Risk Factors (MoRF) Obesity Moderate Risk High: BMI > 40 Moderate: BMI 30-40 Normal: BMI < 30 Diabetes Moderate Risk High: A1C > 8 Moderate: A1C 7-8 Normal: A1C < 7 Smoking normal High: Current smoker Normal: Non smoker Anemia normal High: Hgb < 13 (men) N/A: Hgb >= 13 (men) Nutritional Status normal High: Alb<3.4, or prealb<15, or serum transferrin<200, or total lymphocyte count<1500 Normal: normal labs Narcotics Use normal High:NarxCare >=300 Moderate: 100-299 Normal: 0-99 Obesity: weight management recommended BMI Readings from Last 3 Encounters: 09/18/23 : 31.80 kg/m? 09/18/23 : 31.80 kg/m? 07/12/23 : 31.80 kg/m? Diabetes: Gregg has been diagnosed with Type 2 Diabetes. His last Hemoglobin A1C was 7.2 (03/21/2023). ------ REVIEW OF SYSTEMS: CONSTITUTIONAL: No fevers, chills, nightsweats, unintended weight loss HEENT: Denies frequent or severe headaches, nasal congestion/sinus symptoms, problematic allergy problems. EYES: No diplopia or blurry vision. CARDIOVASCULAR: No chest pain, dyspnea, palpitations, orthopnea, PND. PULM: No dyspnea, unexplained cough. GI: No dysphagia/odynophagia, problematic reflux, constipation, diarrhea, changes in stool habits, hematochezia, melena. : No new urinary complaints, including dysuria, gross hematuria or pyuria. NEURO: No new balance problems, peripheral weakness/paresthesias or numbness of concern. MUSC-SKEL: No new joint pain, swelling, or erythema. PSY: No concerns regarding depression, anxiety or panic. INTEGUMENTARY: Skin changes as noted below. I have confirmed and edited as necessary, the PFSH and ROS obtained by others. OBJECTIVE: Patient is oriented to person, place, and time and is in no acute distress. Vascular Exam: Dorsalis Pedis pulses are history of medication see with the existing nail just stomach issues liver biopsy now right they did state that palpable bilateral. Posterior Tibial pulses are WEAKLY palpable bilateral. Capillary refill time brisk. Skin temperature of the bilateral lower extremity is warm to cool, proximal to distal. Varicosities are NOT observed bilaterally. Edema NOT noted. No palpable lymph nodes noted. Dermatological: Skin appears diffusely dry Skin is without notable erythema or ecchymosis. Webspaces are clean, dry, and intact bilateral. Lesions: There is a full thickness wound to the Right distal forefoot with gangrene to the toes and lateral foot. The wound does NOT probe to bone, does NOT track. There is NO purulence noted, NO erythema to the surrounding tissue, malodor, NO Pain to the promise-wound. Wound Classification of the Above Wound using the Beach Classification of Diabetic Foot Ulcers: Grade 4: Partial Foot Gangrene Layer exposed: Unstageable eschar Exudate: Moderate amount of Serosanguinous Drainage Neurological: Light touch sensation intact bilaterally. Gross sensation intact bilaterally. Protective sensation intact at 5/5 non-callused sites randomly selected and tested bilaterally using a 5.07 SWMF. Musculoskelatal: Muscle strength +5/5 for all pedal muscle groups bilaterally. No significant symptomatic limitations in pedal joint ROM bilaterally. AJ ROM decreased without pain bilateral. ASSESSMENT AND PLAN: Discussion with the patient today including questions and answers regarding the etiology and treatment options for the current problems. Right foot gangrene Right heel ulcer - Patient to continue with his daily dressing changes of Betadine wet-to-dry. - Discussed with the patient the (more content not included)... [facility] [employer] 10-20-2023 History of Present illness Narrative Images from the original note were not included. PODIATRIC MEDICINE & SURGERY OFFICE NOTE Complaint: Right foot gangrene HPI: This 68 year old male presents to the clinic today as a surgical referral for Dr. oLyd. Patient presents today with gangrene of his right foot. He is prepared for a amputation as that is what has been discussed with him. Patient's develops gangrene to the right foot and has subsequently had endovascular intervention to the right lower extremity. His perfusion has been optimized. PAST MEDICAL HISTORY Diagnosis Date CAD (coronary artery disease) CKD (chronic kidney disease) stage 3, GFR 30-59 ml/min ([facility]) CVA (cerebral vascular accident) ([facility]) Diabetes type II (HCC) Essential hypertension Ischemic cardiomyopathy LV (left ventricular) mural thrombus PAST SURGICAL HISTORY Procedure Laterality Date LAYOUT MAN-D IMPLANT ICD IMPLANT SINGLE CHAMBER PCI/STENT No current facility-administered medications for this visit. ALLERGIES No Known Allergies No family history on file. Social History Tobacco Use Smoking status: Never Passive exposure: Never Smokeless tobacco: Never [place] Modifiable Risk Factors (MoRF) Obesity Moderate Risk High: BMI > 40 Moderate: BMI 30-40 Normal: BMI < 30 Diabetes Moderate Risk High: A1C > 8 Moderate: A1C 7-8 Normal: A1C < 7 Smoking normal High: Current smoker Normal: Non smoker Anemia normal High: Hgb < 13 (men) N/A: Hgb >= 13 (men) Nutritional Status normal High: Alb<3.4, or prealb<15, or serum transferrin<200, or total lymphocyte count<1500 Normal: normal labs Narcotics Use normal High:NarxCare >=300 Moderate: 100-299 Normal: 0-99 Obesity: weight management recommended BMI Readings from Last 3 Encounters: 09/18/23 : 31.80 kg/m 09/18/23 : 31.80 kg/m 07/12/23 : 31.80 kg/m Diabetes: Gregg has been diagnosed with Type 2 Diabetes. His last Hemoglobin A1C was 7.2 (03/21/2023). REVIEW OF SYSTEMS: CONSTITUTIONAL: No fevers, chills, nightsweats, unintended weight loss HEENT: Denies frequent or severe headaches, nasal congestion/sinus symptoms, problematic allergy problems. EYES: No diplopia or blurry vision. CARDIOVASCULAR: No chest pain, dyspnea, palpitations, orthopnea, PND. PULM: No dyspnea, unexplained cough. GI: No dysphagia/odynophagia, problematic reflux, constipation, diarrhea, changes in stool habits, hematochezia, melena. : No new urinary complaints, including dysuria, gross hematuria or pyuria. NEURO: No new balance problems, peripheral weakness/paresthesias or numbness of concern. MUSC-SKEL: No new joint pain, swelling, or erythema. PSY: No concerns regarding depression, anxiety or panic. INTEGUMENTARY: Skin changes as noted below. I have confirmed and edited as necessary, the PFSH and ROS obtained by others. OBJECTIVE: Patient is oriented to person, place, and time and is in no acute distress. Vascular Exam: Dorsalis Pedis pulses are history of medication see with the existing nail just stomach issues liver biopsy now right they did state that palpable bilateral. Posterior Tibial pulses are WEAKLY palpable bilateral. Capillary refill time brisk. Skin temperature of the bilateral lower extremity is warm to cool, proximal to distal. Varicosities are NOT observed bilaterally. Edema NOT noted. No palpable lymph nodes noted. Dermatological: Skin appears diffusely dry Skin is without notable erythema or ecchymosis. Webspaces are clean, dry, and intact bilateral. Lesions: There is a full thickness wound to the Right distal forefoot with gangrene to the toes and lateral foot. The wound does NOT probe to bone, does NOT track. There is NO purulence noted, NO erythema to the surrounding tissue, malodor, NO Pain to the promise-wound. Wound Classification of the Above Wound using the Beach Classification of Diabetic Foot Ulcers: Grade 4: Partial Foot Gangrene Layer exposed: Unstageable eschar Exudate: Moderate amount of Serosanguinous Drainage Neurological: Light touch sensation intact bilaterally. Gross sensation intact bilaterally. Protective sensation intact at 5/5 non-callused sites randomly selected and tested bilaterally using a 5.07 SWMF. Musculoskelatal: Muscle strength +5/5 for all pedal muscle groups bilaterally. No significant symptomatic limitations in pedal joint ROM bilaterally. AJ ROM decreased without pain bilateral. ASSESSMENT & PLAN: Discussion with the patient today including questions and answers regarding the etiology and treatment options for the current problems. Right foot gangrene Right heel ulcer - Patient to continue with his daily dressing changes of Betadine wet-to-dry. - Discussed with the patient the need for amputation and he is amenable at this time. Patient also has a plantar heel wound that will be addressed at the same time. All risks, benefits, complications and alternatives have been explained in detail to the patient, including but not limited to numbness, tingling, burning, over or under correction, problems or healing soft tissue or bone, nonunion, malunion, delayed union, chronic pain or disability, need for further surgery, infection, need for removal of hardware, loss of limb or life, and given these complications, the patient wishes to continue with surgical correction. All questions answered to the patient's satisfaction. No promises or guarantees given as to the outcome of the procedure. The patient was consented for the proposed procedure. Postoperative pain medications were discussed with the patient today. If they need further prescriptions, they will receive a pain management referral at that time. Patient written for Augmentin as well as Reglan for his nausea. All questions answered to the patient's apparent satisfaction. No further questions at this time. Patient to be seen in clinic post op, to return to clinic earlier if any problems arise. Dr. Solitario Cantor DPM I spent a total of 35 minutes on the date of the service which included preparing to see the patient, [id number] patient care, completing clinical documentation, obtaining and/or reviewing separately obtained history, performing a medically appropriate examination, counseling and educating the patient/family/caregiver, and ordering medications, tests, or procedures. documented in this encounter [facility] 10-20-2023 Instructions Solitario Cantor DPM - 10/20/2023 8:29 AM EDT Images from the original note were not included. WHAT MEDICATIONS SHOULD YOU STOP PRIOR TO SURGERY? Medication name When to stop taking medication Aspirin 7 days prior to surgery Percodan Nsaids/ibuprofen: 7 days prior to surgery Advil Medipren Anaprox Mobic Bextra Motrin Indocin Naprosyn Menadol Toradol naproxen sodium: 7 days prior to surgery Aleve Celebrex Ok to take up until midnight the night before surgery Tylenol Ok to take up until midnight the night before surgery Herbal medications: 7 days prior to surgery all that start with G (Ginko, Glucosamine), omega 3's, all fish oils, seaweed PAIN MEDICATIONS INCLUDING: Ok to take up until midnight Vicodin (Hydrocodone) Percocet (Oxycodone) the night before surgery Dilaudid Oxycontin DIABETES CONTROL Ask your physician prior to surgery in reference to these types of medications. BETA BLOCKERS: Make sure to take these Acebutolol (Sectral) Metoprolol (Lopressor, Toprol) medicationswith a small sip Atenolol (Tenormin) Nadolol (Corgard) of water on the morning of Bisoprolol (Zebeta) Nebivolol (Bystolic) surgery. Carvedilol (Coreg) Propranolol (Inderal) Please call your physician about ANY medications not listed here PREPARING FOR SURGERY EXERCISE Exercising, up to the day before your surgery, helps improve your strength, range of motion and endurance. This helps lead to a successful outcome and recovery. Talk with your surgeon about a referral to physical therapy if you would like help developing an exercise program. Why is exercise so important for your recovery? Strengthening exercises improves recovery. Upper body conditioning exercises help reduce muscle soreness and fatigue caused by the use of a walker, crutches, a cane, or other aids. A walking or water exercise program increases endurance, flexibility, and overall strength. CIRCULATION EXERCISES Although swelling is a normal response after surgery, circulation exercises help control swelling and prevent more serious complications, such as blood clots. DIET AND NUTRITION Healthy eating and proper nutrition before your surgery aids the healing process. The better you eat before surgery, the better you ll feel after surgery! Drink plenty of fluids and stay hydrated. Eat more fiber to help avoid constipation (often caused by pain medications). Foods that contain fiber include corn, peas, beans, avocados, whole wheat pasta and breads, broccoli, almonds. Eat foods rich in iron, such as lean red meat, dark green leafy vegetables, raisins, and prunes. Eat foods high in Vitamin C to help your body absorb iron. Foods that are high in vitamin C include oranges, cantaloupe, and tomatoes. Make sure you are getting enough calcium, which is needed to keep your bones strong. Foods that are high in calcium include milk, cheese, yogurt, dark leafy greens, and fortified cereal. Eat light meals, especially the day before surgery. The combined effects of anesthesia and your medication may slow down your bowel function. This can cause constipation after surgery. SMOKING AND ALCOHOL USE SMOKING Smoking causes breathing problems, increases the risk of medical complications, and slows recovery. Smoking also increases the risk of infection and blood clots after surgery. You cannot smoke while you are in the hospital. We encourage you to stop at least 3-5 days (or more) before your surgery. This will decrease the chances of lung problems and will help to hasten your recovery. ALCOHOL USE Before surgery, it is important to be honest with your health care providers about your alcohol use. Tell your health care provider how many drinks you have per day (or per week). This information helps determine if you are at risk for alcohol withdrawal or other alcohol-related problems that could occur after surgery and affect your recovery. We are here to help you prepare and recover from your surgery as quickly and safely as possible. DIABETES GUIDELINES AND BLOOD GLUCOSE MANAGEMENT Managing your blood glucose is always important, but it is extremely important before surgery. In fact, managing your blood glucose before surgery can help reduce the risk of problems after surgery, such as infection and other complications. Surgery can affect your blood glucose control in many ways. Stress before and after surgery can cause your body to release hormones that may make it more difficult to manage blood glucose levels. Surgery can also affect your normal diet, and may change your usual medication routine. Your diabetes will be managed throughout the entire surgical process, starting with a thorough review during the pre-operative testing and continuing through the post-op period. MEDICATIONS Some medications thin your blood, increase the risk of bleeding after surgery, or interfere with healing. These medications may need to be stopped before surgery. If you take medications that contain aspirin, anti-inflammatories (such as ibuprofen, [Motrin , Advil ], naproxen [Aleve ]), blood thinners (such as warfarin, [Coumadin ]) or arthritis medications, ask your surgeon when to stop taking these medications. Because blood-thinning medications affect clotting and bleeding, these medications (plus all your other medications) will be reviewed with you either at your pre-admission visit or by your surgical team. If you have any questions about your medications, please contact your surgeon s office. Just a few of the people who will be involved in your care while in the hospital. HOME SAFETY PREPARATION Setting up your home for your return before you have surgery will help keep you safe, make your life easier, and aid in your recovery. Listed below are suggestions for preparing your home for a safe recovery. TRAFFIC PATTERN Move obstacles - such as throw rugs, extension cords, and footstools - out of your walk way. Create a wide, clear path from your bedroom to your bathroom and kitchen so you can easily move about with a walker or crutches. BATHROOM Ask an occupational therapist how to adapt your bathroom to meet your needs during recovery. You will likely need an elevated toilet seat or commode and a shower chair. (Read more about Bathroom readiness in the Adaptive and Durable Medical Equipment Section) CHILDREN AND PETS Small children and pets can pose a safety hazard. Small children may need to be taught how to interact with you in ways that keep you safe. If you have pets, make arrangements to keep pets in another area of the house when you arrive home. ACCESS TO ITEMS To avoid reaching or bending, keep frequently used items within easy reach, especially in the kitchen, bathroom, and bedroom, for example, food, medications, phone. It s a good idea to carry a cell phone or portable phone with you at all times during your recovery. STAIR CLIMBING It s okay to climb stairs without assistance, if you are able. However, you may need help with climbing stairs when you first get home. Consider installing handrails or make sure existing handrails are secure. LAUNDRY AND CLEANING Get help with cleaning and laundry. Have a few weeks of clean clothes available. MAIL Arrange for somebody to collect mail or place delivery on hold (same with newspaper). MEALS Arrange for help with your meals and perishable foods (milk, salad, and fruits and vegetables). Freeze premade dinners before your surgery. Stock up on non-perishable foods (boxed, canned, and frozen) to make it easier to prepare meals after surgery. DRIVING Arrange for someone to drive you to your after surgery appointments. Do not drive until your surgeon tells you it s okay to do so. Absolutely do not drive while taking narcotic medications. Do not drive until you have regained the range of motion, strength, and reaction time needed to drive safely. ADAPTIVE OR DURABLE MEDICAL EQUIPMENT (DME) A walker, crutches, or cane are standard equipment used by patients recovering after surgery. It is highly recommended that you contact your insurance company to find out what is covered under your policy. Below is a list of suggested items that can make your life easier and keep you safe. Most of the items can be found at a medical supply store or at pharmacies, home improvement stores, or thrift stores. These items should be purchased before your surgery, however before buying; we suggest you talk to either a physical or occupational therapist about your specific needs. ASSISTIVE DEVICES Walker (with 5 inch wheels, not a Rollators or walker with seat) iWALK 2.0 Hands Free Crutch - Pain Free Knee Crutch - Alternative to Crutches and Knee Scooters Cane Rocket Motor Mechanic (or grabber) Crutches Sock aid Long-handled shoehorn Elastic shoe laces BATHROOM Elevated commode seat Toilet seat riser Shower chair Grab bar for shower / tub Hand-held shower head Long-handled bath sponge BEFORE YOUR SURGERY CHECKLISTS The following checklists are guides to help you prepare for surgery and recovery. Careful preparation improves the chance of a complication-free recovery. To complete before surgery: I have verified with my insurance company that I have coverage for my surgery. I have received my pre-admission testing schedule. If I have not received my schedule with in two weeks before my surgery, I will contact the surgery scheduling office. I have received a COVID test. I have completed all lab work requested from my surgeon s office. I will call my Specialty Machine Set Up Technician if I have questions or concerns about my surgery. I have talked to my Specialty Machine Set Up Technician or surgeon about discharge options. I have completed a Living Will or Health Care [id number] to have on file in my chart. I have not shaved my legs 3 days before my surgery. I have arranged for someone to drive me home when I m discharged from the hospital. I have arranged for someone to drive me to my follow-up appointments. To improve my health before surgery: I quit smoking to improve healing and reduce the risk of infection after surgery. I had a dental check-up to make sure all my dental needs are taken care of before surgery. I received a flu vaccination (if during flu season -- May through October). I am eating lightly the week before my surgery to help reduce the risk of constipation. I have increased fluids and fiber in my diet as well. I had my diabetes checked, and it is under control (if applicable). PRE-ADMISSION TESTING A pre-operative work-up is mandatory for all surgery patients. At this visit, you will be asked about your medical history, previous surgeries, illnesses and current state of health. You will also undergo a series of tests, such as lab work, urinalysis, nasal swab, X-ray, EKG and / or stress test. THE DAY BEFORE SURGERY You should receive a call from the surgeon s office to confirm your procedure and the time you need to arrive at the hospital. If you do not receive a call by 3:00 p.m. the day before surgery, please call your surgeon s office. For Monday surgery, call Monday afternoon. You will be told which medications to take the morning of surgery with a small sip of water. Do Remove nail icelandic. Shower and wash your hair the night before. Bathing helps reduce the amount of bacteria on the skin and may lessen the risk of infection after surgery. Use the antibacterial soap provided and follow the instructions. Sleep in clean pajamas or clothes. Sleep on freshly laundered linens. Get a good night s sleep - it s important to be well-rested before surgery. Do Not Do NOT eat or drink anything after the time you were instructed; ice chips, gum, or mints are NOT allowed. Do NOT use lotions or powders. Do NOT shave your legs the day before or day of surgery. Do NOT shower the morning of your surgery. THE DAY OF SURGERY On the day of surgery, you must remember several important things: Take only the medications you have been told to take; take them with a small sip of water. Comply with the strict instructions about food / beverage consumption. Do not wear make-up or jewelry. Do not take insulin unless otherwise instructed. Do not take your oral diabetes medication (pills) on the morning of your surgery. WHEN YOU ARRIVE You will be asked to empty your bladder. Any glasses, contacts, hearing aids, or dentures will be removed before surgery and returned after surgery. Advanced directives will be noted. You will have your vital signs checked (Vital signs are your heart beat rate (pulse), breathing rate, body temperature, and blood pressure). Your operative site will be prepped and the surgeon will review the procedure. An intravenous (IV) line will be started to give you fluids and medication. ANESTHESIA The anesthesiologist or nurse final dressing cutter will talk with you about the types of anesthesia used during surgery. General Anesthesia puts you to sleep following an injection of medications into your IV. You will not feel pain and will be completely asleep throughout your surgery. Regional Anesthesia numbs a part of your body with an injection of local anesthetic. You will be awake but will not feel any pain. Remember to tell the anesthesiologist (or nurse final dressing cutter) if you prefer to be asleep or want to stay awake. It is your choice. THE SURGERY While you are in the operating room, your loved ones may wait in the surgical waiting room. The surgeon or sales representative health insurance will speak with your family while you are recovering. RIGHT AFTER SURGERY You will recover in the Post-Anesthesia Unit (PACU) and be cared for by a nurse before being taken to your hospital room. The average time in this unit is about two hours. While here: Your vital signs will be checked. You will be asked questions to determine if anesthesia is wearing off. Your pain medications will be started. You will be warmed with blankets if you are cold. You will be given oxygen to help you breathe (if needed). You will wear compression sleeves on your lower legs to help prevent blood clots. Your surgical site will be wrapped with a cold pack to reduce swelling and pain. You might have a urinary catheter placed to empty your bladder. You may have an x-ray taken. MANAGING PAIN AND DISCOMFORT We encourage you to take your pain medication as soon as you begin to feel pain. Do not wait until the pain becomes severe. Follow the instructions on the prescription label. Remember to take your pain medication before activity and bedtime. If you need to have stitches or fany removed and you are still taking pain medications, be sure to have a friend or family member drive you to your surgeon s appointment. Pain medication may cause nausea. If this happens, decrease the amount you are taking or stop and contact your surgeon s office. If you need additional pain medication, please contact your surgeon s office. If you need more pain medication, you must give a three day advance notice before you run out of medication. Please plan ahead, especially for holiday weekends. Also remember: You are not permitted to drive a car while taking narcotic pain medication. It may take several days to have a bowel movement. Anesthesia and pain medication often cause constipation. Drink plenty of fluids and eat whole grains, fruits, and vegetables. A stool softener or laxative can help bowel function return to normal. Please do not hesitate to call your surgeon s office with any questions or concerns. INCISION CARE Your incision will be covered with a dressing. Before you go home, your surgeon or nurse will explain how to take care of your wound and when to remove your dressing. Make sure you understand these instructions before you leave the hospital and who to contact if you need assistance. Note: How to care for your wound is included in your hospital discharge instructions. Call your surgeon immediately if you notice any increase in drainage, redness, warmth, or have a fever above 101 degrees Fahrenheit for more than 24 hours. These may be signs that your incision may be infected. WALKER, CRUTCHES, CANE Use your assistive devices for balance as instructed by your surgeon or therapist. By your first post-op visit with your surgeon, you may have already improved and changed from using a walker or crutches to a cane (as recommended by your surgeon or therapist). ACTIVITY Your incision will be covered with a dressing. Before you go home, your surgeon or nurse will explain how to take care of your wound and when to remove your dressing. Please follow the below instructions: You may place weight on your: You may NOT place any weight on the operated leg You may shower: Yes, with bandage covered You may remove the bandage: No Do not stay alone for the the first 24 hours after surgery. Ice 15 minutes every hour maximum and elevate above the level of your heart as much as possible Numbness after surgery can be normal due to the injected localized anesthesia after surgery, ranging form 2 to 24 hours. Have a family member/friend check your toes to ensure no abnormal changes in color for the first 12 hours after surgery. Take your pain medication as needed in order to stay active but rest as needed for recovery. If able, move around the house 2-3 times/day. This will help reduce the risk of blood clots following surgery. You may use the stairs as needed as long as you are not dizzy or weak. Make sure someone is around the first few times you use the stairs or walk. documented in this encounter [facility] 10-20-2023 Miscellaneous Notes Radiology Service Progress Note PATIENT NAME: Gregg Foster DATE OF SERVICE: October 20, 2023 TIME: 7:49 AM PATIENT IDENTITY VERIFICATION COMPLETED USING TWO (2) IDENTIFIERS: Name and Date of confirmed by patient verbally. FALL SCREENING: Has the patient had 2 falls in the last year or 1 fall with injury or currently using an Ambulatory Assistive Device (Walker, Cane, Wheelchair, Crutches, etc.)? Inpatient: Screened on floor PATIENT GENDER DATA: Male PATIENT RELEVANT IMPLANT DATA REVIEWED: Not Applicable PATIENT PRESENTS WITH AN IMPLANTABLE OR ATTACHED SHEAR OPERATOR HELPER: No RADIOLOGY DEPARTMENT: General X-ray: Exam(s) Completed: Lower Extremity X-Ray(s): Feet, Bilateral PERIPHERAL IV DATA: Not applicable SIGNED BY: RT Madeline(R) October 20, 2023 7:49 AM documented in this encounter [facility] 09-19-2023 History of Present illness Narrative Diagnoses and all orders for this visit: Pulmonary hypertension ([facility]) Reviewed an outside echocardiogram. I updated his problem list with the pulmonary hypertension. documented in this encounter [facility] 09-18-2023 Note [facility] 09-18-2023 History of Present illness Narrative Images from the original note were not included. LAYOUT MAN-HF Clinic OUTPATIENT VISIT DATE September 18, 2023 OUTPATIENT VISIT TYPE Established Patient PRIMARY CARE PHYSICIAN: Jeff Cerda [place] [facility] [address] CC: LAYOUT MAN-CHF clinic visit HPI: Pleasant 68-year-old male with chronic systolic heart failure/nonischemic cardiomyopathy status post ICD with upgrade to LAYOUT MAN-D and severe CKD presents for LAYOUT MAN/CHF clinic visit. Gregg underwent LAYOUT MAN-D implant earlier in 2022. Prior to implant [...] doses. He was supposed to see an transit planning manager but that has not materialized. PAST MEDICAL HISTORY Diagnosis Date CAD (coronary artery disease) CKD (chronic kidney disease) stage 3, GFR 30-59 ml/min ([facility]) CVA (cerebral vascular accident) ([facility]) Diabetes type II ([facility]) Essential hypertension Ischemic cardiomyopathy LV (left ventricular) mural thrombus PAST SURGICAL HISTORY Procedure Laterality Date LAYOUT MAN-D IMPLANT ICD IMPLANT SINGLE CHAMBER PCI/STENT SOCIAL [...] units) Date Value 03/30/2023 Negative URINALYSIS Specific [place], Ur (no units) Date Value 03/21/2023 1.009 [...] CONCLUSIONS: - Exam indication: Initial evaluation for LAYOUT MAN device optimization after implantation - The left [...] - Exam was compared with the prior CC echocardiographic exam performed on 03/22/2023. S/p ICD [...] ft [<1200 ft is abnormal] Frailty testing Engine Test Cell Technician strength: Average score 27 [22, 30, 28] [...] 1, Anxiety/depression 1. Visual analogue scale 20 LAYOUT MAN Implant Regret Scale Patient asked to reflect on how strongly they agreed or disagreed with these statements from 1 (strongly agree) to 5 (strongly disagree) pertaining to their LAYOUT MAN implant and/or upgrade. It was the right [...] year old White male who comes to [facility] for evaluation and management of Heart Failure. The patient has been referred by No ref. provider found. Gregg Foster has a past medical history of CAD (coronary artery disease), CKD (chronic kidney disease) stage 3, GFR 30-59 ml/min ([facility]), CVA (cerebral vascular accident) ([facility]), Diabetes type II ([facility]), Essential hypertension, Ischemic cardiomyopathy, and LV (left ventricular) mural thrombus. The patient has a past surgical history that includes PCI/Stent; ICD Implant Single Chamber; and LAYOUT MAN-D Implant. The patient also does not have any pertinent problems on file.. The primary encounter diagnosis was Cardiomyopathy, nonischemic ([facility]). Diagnoses of Chronic systolic HF (heart failure) ([facility]), Coronary artery disease involving apache coronary artery 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 pectoris, Atrial fibrillation, chronic ([facility]), Paroxysmal atrial fibrillation ([facility]), and Frequent PVCs were also pertinent to [...] 0.4 R waves 11.9 QLV 120 ms LAYOUT MAN: Patient is a responder as defined by an improvement in EF at least greater than 5% status post LAYOUT MAN (pre-LAYOUT MAN echo: 13% 128/111, post-LAYOUT MAN echo: 20%). ECG done prior to LAYOUT MAN implantation showed IVCD pattern with a QRS of 172 ms, and ECG done following LAYOUT MAN implantation showed biventricular paced pattern QRS 172 [...] counseling and/or coordinating care for the patient. Gnyb-[id number] time was 45 minutes. We discussed natural history of disease, current treatment options, future potential treatment options. We discussed diet, exercise, other non-medical management as above. documented in this encounter [facility] 09-15-2023 Hospital course Narrative [facility] [place] [facility] Gregg Foster Admitted: 09/13/2023 Discharge Date: [...] 09/15/23, 12:14 PM documented in this encounter [facility] 09-15-2023 Hospital Discharge instructions Padmini Pina RN [...] follow up appointments. documented in this encounter [facility] 09-14-2023 Note Formatting of this n ote [...] Goal: Absence of falls Outcome: Partially Met [facility] 09-14-2023 Miscellaneous Notes Problem: Actual or potential [...] Will attempt again. documented in this encounter [facility] 09-14-2023 Note Formatting of this n ote might be different from the original. Problem: Actual or potential alteration in health Goal: Absence of healthcare acquired conditions Outcome: Partially Met Goal: Knowledge of Interdisciplinary Plan of Care Outcome: Partially Met Goal: Knowledge of Enviroment Outcome: Partially Met [facility] 09-14-2023 History of Present illness Narrative I [...] is no signs of congestive heart failure. [facility] [place] Assessment and Plan Gregg Foster is a 68 y.o. male patient of Jeff Cerda MD with history of critical limb ischemia, chf, diabetes presented to [facility] with plan for angiogram . Critical [...] to follow as needed., while in-house. Office [phone] documented in this encounter [facility] 09-14-2023 Consult note Associated Order (s): IP CONSULT TO CARDIOLOGY General Cardiology Inpatient Cardiology Consult Note Heart & Vascular [facility] 09/12/2023 Jennifer Palumbo MD [address] [place] [phone] CARDIOLOGY CONSULT NOTE Patient Name: Gregg Foster Admit Date: 2060910 MR #: [id number] : 1955 Physicians: Jeff Cerda MD (Family) Kindly asked to evaluate Gregg Foster for chief complaint of Comanagement with hydration for CT angiography and severe left ventricular dysfunction ASSESSMENT and PLAN: 1. Systolic dysfunction, last ejection fraction 18% [place] Heart Association class II, ACC stage B We will continue to monitor fluid status as he receives IV hydration for renal protection Thank you for this interesting clinical case. We will continue to follow along unless otherwise noted. Jennifer Palumbo MD, [facility] Cardiovascular Medicine [facility] History of [...] 12.6 mL/hr at 09/14/23627, 12 Units/kg/hr at 02/08/24 0628 heparin bolus from bag 0-5,000 Units, 0-5,000 [...] Patito Álvarez MD, 25 mg at 09/14/23 0906 ondansetron (ZOFRAN-ODT) disintegrating tablet 4 mg, 4 [...] BID, Patito Álvarez MD, 80 mg at 09/14/23 0906 traZODone (DESYREL) tablet 50 mg, 50 mg, [...] atrial septal defect repair. Cannot exclude residual scwl-bb-ynpas shunt on color Doppler. 8. No left ventricular thrombus identified on Definity contrast. [facility] Work Phone: 09-14-2023 Consult note Associated Order (s): IP CONSULT TO CARDIOLOGY General Cardiology Inpatient Cardiology Consult Note Heart & Vascular [facility] 09/12/2023 Jennifer Palumbo MD [address] [place] [phone] CARDIOLOGY CONSULT NOTE Patient Name: Gregg Foster Admit Date: 2060910 MR #: [id number] : 1955 Physicians: Jeff Cerda MD (Family) Kindly asked to evaluate Gregg Foster for chief complaint of Comanagement with hydration for CT angiography and severe left ventricular dysfunction ASSESSMENT and PLAN: 1. Systolic dysfunction, last ejection fraction 18% [place] Heart Association class II, ACC stage B We will continue to monitor fluid status as he receives IV hydration for renal protection Thank you for this interesting clinical case. We will continue to follow along unless otherwise noted. Jennifer Palumbo MD, [facility] Cardiovascular Medicine [facility] History of [...] Álvarez MD, Last Rate: 12.6 mL/hr at 09/14/23 0628, 12 Units/kg/hr at 09/14/23 0628 heparin bolus from bag 0-5,000 Units, 0-5,000 [...] Patito Álvarez MD, 25 mg at 09/14/23 0906 ondansetron (ZOFRAN-ODT) disintegrating tablet 4 mg, 4 [...] 100 mL/hr at 09/14/23627, Rate Verify at 09/14/23 0628 torsemide (DEMADEX) tablet 80 mg, 80 mg, Oral, BID, Patito Álvarez MD, 80 mg at 09/14/23 0906 traZODone (DESYREL) tablet 50 mg, 50 mg, [...] atrial septal defect repair. Cannot exclude residual zcza-am-mdafc shunt on color Doppler. 8. No left ventricular thrombus identified on Definity contrast. documented in this encounter [facility] 09-14-2023 Note Formatting of this n ote might be different from the original. POC REVIEWED, CT ANGIOGRAM ABD AORTA LOWER AND ECHO TODAY Problem: Actual or potential alteration in health Goal: Absence of healthcare acquired conditions Outcome: Partially Met Goal: Knowledge of Interdisciplinary Plan of Care Outcome: Partially Met Goal: Knowledge of Enviroment Outcome: Partially Met [facility] 09-13-2023 Note EXAMINATION: CT ANGIOGRAM ABDOMINAL AORTA WITH LOWER EXTREMITY PROCEDURE: 1. Enhanced CT scan of the abdomen. 2. Enhanced CT scan of the pelvis. 3. Enhanced CT scan of the lower extremities. 4. CTA abdominal aorta. 5. CTA runoff lower extremities. 6. 3-D reconstructions on a separate workstation. HISTORY: 68-year-old with claudication. Burleson class V peripheral vascular disease in the [...] on MonSep 14, 2023 12:34:49 PM EST [facility] Comment on above: Order Comment: Revol [...] Goal: Knowledge of Enviroment Outcome: Partially Met [facility] 09-13-2023 History and physical note [facility] [place] [facility] Patient Name: Gregg Foster : 1955 MR #: [id number] Admit Date: 09/13/2023 Physicians: Jeff Cerda MD (Family); No ref. provider found (Referring) Gregg Foster is a 68 y.o. male patient of Jeff Cerda MD with history of critical limb ischemia, chf, diabetes presented to [facility] with plan for angiogram . Critical [...] normal coloration Psych: normal mood and affect [facility] 09-13-2023 History and physical note [facility] Patient Name: Gregg Foster : 1955 MR #: [id number] Admit Date: 09/13/2023 Physicians: Jeff Cerda MD (Family); No ref. provider found (Referring) Gregg Foster is a 68 y.o. male patient of Jeff Cerda MD with history of critical limb ischemia, chf, diabetes presented to [facility] with plan for angiogram . Critical [...] to Dr. Jennifer Palumbo one of our bareback rider and we think that the safest option [...] been treated for 8 months by a emergency management specialist in his [place], [place]. He has had marked progression of his critical limb ischemia with eschar involving the lateral aspect of the right foot. The patient is being cared for at the [facility] for his significant congestive heart failure. [...] content normal. The note was dictated using [employer] dictation system. The voice recognition software is inherently subject to errors including those of syntax and sound-alike substitutions which may escape proofreading. In such instances, original meaning may be extrapolated by contextual derivation. documented in this encounter [facility] 09-13-2023 History and physical note Images from [...] to Dr. Jennifer Palumbo one of our bareback rider and we think that the safest option [...] status for his critical limb ischemia. Gregg AburtoKristin 1955 67 y.o. male who presents to the office in consultation for arterial insufficiency in his right lower extremity. I have previously done a right transcarotid arterial revascularization for the patient in December 2021. The patient has developed ischemic ulceration of the left heel which has been treated for 8 months by a emergency management specialist in [place], [place]. He has had marked progression of his critical limb ischemia with eschar involving the lateral aspect of the right foot. The patient is being cared for at the [facility] for his significant congestive heart failure. [...] content normal. The note was dictated using [employer] dictation system. The voice recognition software is inherently subject to errors including those of syntax and sound-alike substitutions which may escape proofreading. In such instances, original meaning may be extrapolated by contextual derivation. [facility] 09-13-2023 Note Formatting of this n ote might be different from the original. Attempted to call number given by office, no answer, voicemail box not set up. Will attempt again. [facility] 09-07-2023 Evaluation + Plan note Associated Problem(s): [...] to Dr. Jennifer Palumbo one of our bareback rider and we think that the safest option [...] cardiac status for his critical limb ischemia. [facility] 09-07-2023 Miscellaneous Notes Associated Problem(s): Critical [...] to Dr. Jennifer Palumbo one of our bareback rider and we think that the safest option [...] critical limb ischemia. documented in this encounter [facility] 09-07-2023 History of Present illness Narrative Images [...] to Dr. Jennifer Palumbo one of our bareback rider and we think that the safest option [...] status for his critical limb ischemia. Gregg AburtoKristin 1955 67 y.o. male who presents to the office in consultation for arterial insufficiency in his right lower extremity. I have previously done a right transcarotid arterial revascularization for the patient in December 2021. The patient has developed ischemic ulceration of the left heel which has been treated for 8 months by a emergency management specialist in his [place], [place]. He has had marked progression of his critical limb ischemia with eschar involving the lateral aspect of the right foot. The patient is being cared for at the [facility] for his significant congestive heart failure. [...] content normal. The note was dictated using [employer] dictation system. The voice recognition software is inherently subject to errors including those of syntax and sound-alike substitutions which may escape proofreading. In such instances, original meaning may be extrapolated by contextual derivation. documented in this encounter [facility] 09-06-2023 Instructions Sophia Gomes MA - 09/06/2023 9:18 AM EST How to contact your Care Team: Provider: MD Kelle Hogan CNP Jill Bender, PA Nurse: Angeles Samano RN To reschedule office appointments call Scheduling [phone] In case of an emergency please call 911. When in need of refills please call the phone number listed above. Please include medication name, pharmacy name and specify 30 or 90 day supply Please check with your pharmacy within 24 hours of your request for refill. You must follow up as directed to continue current refills. Thank you! documented in this encounter [facility] 08-24-2023 History of Present illness Narrative Patient [...] and address wounds. documented in this encounter [facility] 07-12-2023 Note [facility] 07-12-2023 Instructions Carolina Stover MD - 07/12/2023 11:40 AM EST Thank you for visiting the [email or web address] for Heart Failure at the [facility]. Here are your instructions. 1. No changes to medications. 2. Return in 6 months. Please call with questions or concerns. Office: [phone] Carolina Stover MD documented in this encounter [facility] 07-12-2023 History of Present illness Narrative Images from the original note were not included. Heart [facility] Vascular [facility] [[email or web address]] For Heart Failure SECTION OF HEART FAILURE and CARDIAC TRANSPLANT MEDICINE OUTPATIENT VISIT DATE July 12, 2023 OUTPATIENT VISIT TYPE Established Patient PRIMARY CARE PHYSICIAN: Jeff Cerda MD [address] [place] [address] CHIEF COMPLAINT: Feeling well NURSING INTAKE (Patient [...] hx CAD (mLAD stent with ISR and NURSING HOME SOCIAL WORKER distal to stent without collaterals, rPDA NURSING HOME SOCIAL WORKER with Lcx collaterals), ischemic HFrEF (13%) s/p [...] Chronic HFrEF Ischemic cardiomyopathy Wide QRS s/p LAYOUT MAN-D upgrade Type II DM CKD Healing heel [...] changes to medications. Returns in September for [facility] MAN-D clinic. Return in 6 months. I personally interviewed, confirmed and edited the above information as obtained by others I personally spent 30 minutes in total time involved in the management and care of this patient. We discussed natural history of disease, current treatment options, and future potential treatment options. We discussed diet, exercise, other non-medical management as above. Carolina Stover MD [facility] [[email or web address]] For Heart Failure Section Of Heart Failure and Cardiac Transplant Medicine Heart and Vascular [facility] Desk J3-[address] [place] [address] documented in this encounter [facility] 06-27-2023 Evaluation note Diagnosis Research IRB 22-166 [facility] documented in this encounter [facility] Note [facility]11-21-2023 History of Present illness Narrative* Travis Sanford, CARRIE - 06/27/2023 10:45 AM EST IRB 22-166 [employer] - AN INTERNATIONAL, MULTICENTER, OBSERVATIONAL, SINGLE- ARM, BLINDED STUDY TOASSESS THE PERFORMANCE OF THE [employer] SYSTEM PI: Dr. Aba Wood Study explained/reviewed with patient and spouse. Study related follow-up requirements were discussed. Risks, benefits, alternatives, personnel, and costs of the study explained/reviewed. Patient provided informed consent for review. Study related questions were addressed. Patient declined study participation. Thanked patient and family for their time. Travis Ni RN, BSN Pager [phone] [facility] Instructions* Patient Instructions* Yannick Zuñiga PA-C - 06/27/2023 10:27 AM EST - continue the same medications - consult with dermatology - follow-up with Dr. Stover on 07/12 with labs first [facility] History of Present illness Narrative* Yannick Zuñiga PA-C - 06/27/2023 10:00 AM EST Images from the original note were not included. Heart [facility] [[email or web address]] For Heart Failure SECTION OF HEART FAILURE and CARDIAC TRANSPLANT MEDICINE OUTPATIENT VISIT DATE June 27, 2023 OUTPATIENT VISIT TYPE Established Patient PRIMARY CARE PHYSICIAN: Jeff Cerda MD [address] [place] [address] CHIEF COMPLAINT: follow-up HISTORY OF PRESENT ILLNESS: Gregg Foster is a 67 year old male hx CAD (mLAD stent with ISR and NURSING HOME SOCIAL WORKER distal to stent without collaterals, rPDA NURSING HOME SOCIAL WORKER with Lcx collaterals), ischemic HFrEF (13%) s/p [...] INSULIN PEN NEEDLE UF) 31 gauge x /16 Use with pen to administerinsulin three times [...] 6.0 cm, RV moderately decreased - s/p LAYOUT MAN-D upgrade (LBBB) 03/31/2023 - Warm and dry [...] 2012 - mLAD stent with ISR and NURSING HOME SOCIAL WORKER distal to stent without collaterals, rPDA NURSING HOME SOCIAL WORKER with Lcx collaterals - 03/2023: PET Viability: mild ischemia in the territory of the LAD, small scar in LAD territory - [facility] 03/28/2023: LMT normal, LAD mid NURSING HOME SOCIAL WORKER, ISR in mid, NURSING HOME SOCIAL WORKER distal to stent, LCx 50% mid, RCA diffusedisease with NURSING HOME SOCIAL WORKER small RPDA and NURSING HOME SOCIAL WORKER r-PDA - medical therapy recommended Atrial Fibrillation [...] non-medical management as above. Yannick Zuñiga PA-C [facility] [[email or web address]] For Heart Failure Section Of Heart Failure and Cardiac Transplant Medicine Heart [facility] Desk J3-4 [address] [address] documented [facility] History and physical note * Fany Ta, OIL SPRAYING MACHINE OPERATOR.MANAGEMENT TECH - 06/16/2023 12:00 PM EST Yrisruddy Krish Vitale [address] [address] HPI: Mr. Foster is a 67 yo male with a history of CAD (mLAD stent with ISR and NURSING HOME SOCIAL WORKER distal to stent without collaterals, rPDA NURSING HOME SOCIAL WORKER with Lcx collaterals), ischemic HFrEF (13%) s/p [...] intolerance or hyperlipemia. History by Fany Ta APRN.MANAGEMENT TECH Physical Examination: BP 112/74 Pulse (!) 51 [...] edema Neuro: Oriented x3, alert, cooperative, Studies: LAYOUT MAN-D EVALUATION: 06/16/2023 PRESENTS FOR: AF, DCC scheduled [...] Date Value 04/13/2023 45 Fany Ta DNP, SURVEY CHIEF Desk H3-6 [address] [id number] phone [phone] fax [facility] Cardiovascular Medicine, Section of Cardiac Imaging [facility] History of Present illness Narrative* Fany Field, RN - 06/15/2023 12:44 PM EST THE FOLLOWING [...] Explanation of procedure Sedation level during procedure medication instructions from EP lab request: Take [...] discussed with Physician, nurse practitioner or Physician accountant assistant upon discharge Instructions for transmitting EKG to Monitoring Center 3 month follow up instructions Contact number for information and questions Patient Evaluation: Verbalizes understanding Follow Up Plan: Follow up as directed by MD. Supplemental Material Given: Written Material Instructed By Fany Field RN. In Department of CARDIOLOGY. [facility]23 Miscellaneous Notes* Telephone Encounter - Sherice Camargo RN - 06/07/2023 4:56 PM EDT Called patient to explain rationale behind [facility] Clinic follow-up appointment. If needed, also recommended establishing care with Heart Failure prior to 6- month visit in [facility]. No answer, patient's mailbox full. Called patient's , no answer, message left with call back requested if questions. Sherice Camargo RN [facility]10[facility]-2023 Miscellaneous Notes* Telephone Encounter - Ellie [...] apixaban. Flor Vitale MD [facility]10-14-2023 NoteHNO ID: [id number] Author: Note, Interface Service: ? Author Type: ? Type: Progress Notes Filed: 05/20/2023 2:18 AM Note Text: Epic Scheduled Downtime: 05/20/2023 1:00:00 AM to 05/20/2023 1:28:00 [facility]10-10-2023 Miscellaneous Notes* Telephone Encounter - Tisha Rosado RN - 05/16/2023 10:40 AM EDT Prior authorization complete. Patient aware and will fill rx. Tisha Beckman RN [facility]2023 [facility]09-20-2023 [facility]09-20-2023 History of Present illness Narrative* Rosa M Davila - 04/26/2023 11:31 AM EDT EVENT MONITOR DISPOSABLE PATCH INSTRUCTIONS [facility] [id number] Skin prepped and cleansed with alcohol Patch secured to prepped area Monitor Activated Serial #: [id number] Patient Instructed: Prescribed order timeframe Bathing guidelines Usage of event button and diary documentation Return of monitor at the end of prescribed order Call with problems [phone] or [phone] ext. [phone] Patient expresses a good understanding of instructions Rosa M De Anda documented [facility]09[facility] Instructions* Patient Instructions* Yannick Zuñiga PA-C [...] Dr. Stover on 07/12 documented [facility] History of Present illness Narrative* Yannick Zuñiga PA-C - 04/26/2023 9:13 AM EDT Images from the original note were not included. Heart [facility] [[email or web address]] For Heart Failure SECTION OF HEART FAILURE and CARDIAC TRANSPLANT MEDICINE OUTPATIENT VISIT DATE April 26, 2023 OUTPATIENT VISIT TYPE Established Patient PRIMARY CARE PHYSICIAN: Brenda Terrell II, MD [address] [place] [address] CHIEF COMPLAINT: hospital follow-up HISTORY OF PRESENT ILLNESS: Gregg Foster is a 67 year old male hx CAD (mLAD stent with ISR and NURSING HOME SOCIAL WORKER distal to stent without collaterals, rPDA NURSING HOME SOCIAL WORKER with Lcx collaterals), ischemic HFrEF (13%) s/p [...] consulted and he underwent device upgrade to LAYOUT MAN-D. Thereafter hewas diuresed and transitioned to torsemide [...] 6.0 cm, RV moderately decreased - s/p LAYOUT MAN-D upgrade (LBBB) 03/31/2023 - Warm and dry [...] 2012 - mLAD stent with ISR and NURSING HOME SOCIAL WORKER distal to stent without collaterals, rPDA NURSING HOME SOCIAL WORKER with Lcx collaterals - 03/2023: PET Viability: mild ischemia in the territory of the LAD, small scar in LAD territory - [facility] 03/28/2023: LMT normal, LAD mid NURSING HOME SOCIAL WORKER, ISR in mid, NURSING HOME SOCIAL WORKER distal to stent, LCx 50% mid, RCA diffusedisease with NURSING HOME SOCIAL WORKER small RPDA and NURSING HOME SOCIAL WORKER r-PDA - medical therapy recommended PVC's - [...] other non-medical management as above. Yannick Monteiro [place] For [facility] Failure Section Of Heart Failure and Cardiac Transplant Medicine Heart [facility] Desk J3-4 [address] [address] ADDENDUM Component Latest Ref Rng & Units [...] 5,066 (H) 6,843 (H) documented [facility]09-13-2023 Miscellaneous Notes* Telephone Encounter - Zeina [...] pts Name & verified documented [facility]-2023 Miscellaneous Notes* Telephone Encounter - Madina Kenney RN - 04/14/2023 5:49 PM EDT Received call back from Allan Oliva with Clinical Cards who advised holding the insulin for blood sugar less than 110. He also suggested I attempt to call Endocrinology application operations engineer for a scale /parameters. Received call back from Zulema Daniel (pgr. [phone]), who happened to be aware of patient [...] number to call back. Madina Kenney RN [facility] * Telephone Encounter - Madina Kenney RN - 04/14/2023 3:21 PM EDT [facility] Contact Center Inbound Phone Encounter DATE of SERVICE: 04/14/2023 TIME of SERVICE: 3:21 PM Status: Non-urgent, needs attention Service/Provider: Clinical Cardiology Kristine Chang MD Reason for call: Other Issue, blood glucose parameters Contact information: [phone] Resolution: Sent to [facility], paged high priority Comments: Received call [...] know for the future. Madina Kenney RN, [facility] Date of Resolution: 04/14/2023 Time of Resolution 3:21 PM [facility] Miscellaneous Notes* Telephone Encounter - Cain [...] - closing statement given. Routed message to [facility] Patient verified name and date of . Cain Higginbotham RN documented in this encounterMary [facility]09-08-[facility] History of Present illness Narrative* Mikael Henry, [facility] - 04/14/2023 9:45 AM EDT TRANSITION CARE MANAGEMENT (TCM) HEART FAILURE PHARMACY CONTACT Provider Action/FYI: TCM Medication Reconciliation completed for patient. See medication list table below for details. ACTION REQUIRED: Patient counseled on transferring active eRX from [facility] pharmacy to local pharmacy after initial [...] HF medication class(es) added this admission: Yes, janak (Patient to be counseled on new medications if full medication review completed) Last documented LVEF: LV Ejection Fraction (%) Date Value 03/22/2023 13 Last documented weight: Last Wt 04/13/23 106.3 kg (234 lb 4.8 oz) Patient was sent a message via [employer] including the link to the [facility] Heart Failure education video: N/A-mychart not active Initial contact with patient post discharge, spoke to spouse, Leann,, and verified that any applicable caregiver is active in patient's medical care. Patient identified by name and . Summary: -Pt discharged from [facility] on 04/13/23. -Medication review done Full medication review completed Patient Concerns: Review and discussion of medications with spouse, Leann, as outlined in medication table below. Source of medication information obtained from Medication list. Dispense records from pharmacy also utilized to obtain additional medication fill history. Pt filled via [facility] bedside delivery pharmacy team prior to [...] (HCC) Active Problems: 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 Chronic systolic HF (heart failure) (HCC) Cardiac resynchronization therapy defibrillator (LAYOUT MAN-D) in place Cardiomyopathy, ischemic Lower limb ulcer, heel or midfoot, right, with fat layer exposed (HCC) Obesity, Class II, BMI 35-39.9 Diabetic foot infection (HCC) Resolved Problems: * No resolved hospital problems. * Operations Performed While in the Hospital: None Important Tests/Procedures: LAYOUT MAN-D upgrade (new wire place in your ICD) Summary of What Happened When in the Hospital: [facility] presented to [facility] on 03/30/2023 Medication Reconciliation: Legend: Stopped, New, Changed, Added to list Medication List Medication Directions Comments Action/Plan allopurinol (ZYLOPRIM) 100 mg tablet Take a half tablet by mouth once daily. Pick these up at [facility] on pharmacy dispense records with recent fill hx Patient reportedly taking as prescribed without any issues Reviewed change Discontinued: 04/13/2023 10:02 AM [employer] dose amoxicillin-clavulanic acid (AUGMENTIN) 500-125 mg per tablet Take 1 tablet by mouth every 8 hours.Pick these up at [facility] on pharmacy dispense records with recent fill hx Patient reportedly taking as prescribed without any issues With food Obtain refills from provider- if duration is > 30 days Discontinued: 04/13/2023 10:02 AM D/c [employer] Reviewed d/c atorvastatin (LIPITOR) 80 mg tablet Take 1 tablet by mouth once daily. on pharmacy dispense recordswith recent fill hx Patient reportedly taking as prescribed without any issues Discontinued: 04/13/2023 10:02 AM D/c [employer] Metoprolol prescribed at discharge Reviewed d/c clopidogrel [...] back and forth between 20mg and 30mg [employer] for last 6 months- has PCP appt upcoming - currently at 20mg Patient reportedly taking as prescribed without any issues empagliflozin (JARDIANCE) 10 mg tablet Take 1 tablet by mouth once daily. Pick these up at [facility] on pharmacy dispense records with [...] any issues Discontinued: 04/13/2023 10:02 AM D/c [employer] Reviewed d/c insulin detemir U-100 (LEVEMIR FLEXPEN) 100 unit/mL (3 mL) injection pen Inject 30 Units subcutaneously every morning. Pick these up at [facility] on pharmacy dispense records with recent fill hx Patient reportedly taking as prescribed without any issues Replaces lantus Discontinued: 04/13/2023 10:02 AM D/c [employer] Levemir prescribed at discharge Reviewed d/c insulin lispro (HUMALOG KWIKPEN) 100 unit/mL Inject 24 Units subcutaneously with MEALS. Pick these up at [facility] on pharmacy dispense records with [...] three times daily. Pick these up at [facility] on pharmacy dispense records with [...] mouth twice daily. Pick these up at [facility] on pharmacy dispense records with [...] you become . Pick these up at [facility] on pharmacy dispense records with recent fill hx Entresto was previously on active med list [employer] Patient reportedly taking as prescribed without any issues Confrimed was on before Discontinued: 04/13/2023 10:02 AM D/c [employer] Reviewed d/c torsemide (DEMADEX) 20 mg tablet Take 4 tablets by mouth twice daily. [facility] on pharmacy dispense records with recent fill hx Patient reportedly taking as prescribed without any issues Can move up second dose earlier in day prn Has scale Discontinued: 04/13/2023 10:02 AM [employer] dosing Discontinued: 04/13/2023 10:02 AM D/c [employer] Reviewed d/c Preferred pharmacy: [facility]/pharmacy #[id number] [place] [address] [address] [facility] [phone] [place] [address] [address] [facility] [address] [facility] [address] [facility] [address] Estimated Creatinine Clearance: 37 mL/min (A) (based on SCr of 2.43 mg/dL (H)). Estimated Glomerular Filtration Rate (mL/min/1.73m ) Date Value 04/13/2023 29 (L) Additional follow up: Next 5 Appointments Date and Time Provider Department Dept Phone 04/26/2023 10:00 AM Yannick Zuñiga [facility] [phone] 05/12/2023 9:45 AM [facility] [phone] 07/12/2023 11:15 AM Nick Nurse Card Chf; Jolanta, Kennybasilio [facility] [phone] Interventions Made: Patient education/Medication counseling, Adherence counseling, and AVS medication list discrepancy Pharmacist Recommendations Made Lab request/Therapeutic drug monitoring Care Coordination: Escalated to specialist provider Time spent on patient: 45-60 minutes MIKAEL HENRY, PHARMACIST, [facility] Transitional Care Management April 14, 2023 3:52 PM documented in this encounterMary [facility]20[facility]-20[facility]-2023 Note [facility]09-04-2023 [facility]-04-2023 [facility]-03-2023 [facility] 04-08-2023 [facility]-01-2023 [facility]-31-2023 [facility]-30-2023 [facility]-30-2023 [facility]-30-2023 Note [facility]-29-2023 [facility]-28-2023 [facility]-27-2023 [facility] 04-01-2023 [facility]-25-2023 [facility]-25-2023 [facility]-24-2023 [facility]-23-2023 [facility]-22-2023 Note [facility]-21-2023 [facility]-20-2023 [facility]-19-2023 [facility] 03-24-2023 [facility]-17-2023 [facility]-17-2023 [facility]-17-2023 [facility]-16-2023 [facility]-15-2023 Note [facility]08-14-2023 [facility]-14-2023 [facility]05-31-2023 History of Present illness Narrative* Rogerio Gruber, [facility] - 01/04/2023 8:00 AM EDT [facility] Medication Management ANTICOAGULATION Referring Provider: Dr Ayde [...] or extra doses of warfarin. Went to [facility] for gout flare-up, was given colchicine 0.6 [...] PharmD 01/04/2023 8:23 AM documented in this encounterHEN[facility] Work Phone: [phone]) 229-150505-31-2023 Hospital Discharge instructions* Patient Instructions* Rogerio Gruber [...] to your next visit. documented in this encounterHENR[facility] Work Phone: [phone]) 129-280304-19-2023 History of Present illness Narrative* Rogerio Gruber RPH - 11/23/2022 8:00 AM EDT [facility] Medication Management ANTICOAGULATION Referring Provider: Dr [...] PharmD 11/23/2022 8:09 AM documented [facility] Phone: [phone] Hospital Discharge instructions* Patient Instructions* Rogerio Gruber [...] to your next visit. documented in this encounterTEMPE [facility]. [facility] Phone: [phone]) [phone] History of Present illness Narrative* Rogerio Gruber RPH - 10/26/2022 8:00 AM EDT [facility] Medication Management ANTICOAGULATION Referring Provider: Dr [...] 10/26/2022 9:35 AM [facility] Work Phone: [phone] Hospital Discharge instructions* Patient Instructions* Rogerio Gruber [...] your next visit. documented in this encounterSENTARA PRINCESS ANNE HOSPITALScreenburn Phone: [phone] 710-925902-15-2023 History of Present illness Narrative* Rogerio Gruber RPH - 09/21/2022 8:00 AM EST [facility] Medication Management ANTICOAGULATION Referring Provider: Dr [...] PharmD 09/21/2022 8:07 AM documented in this encounterSENTARA PRINCESS ANNE HOSPITALScreenburn Phone: [phone] Hospital Discharge instructions* Patient Instructions* Rogerio Gruber RPH - 09/21/2022 8:00 AM EST Continue current dose of warfarin as instructed on dosing calendar provided. Continue to monitor urine and stool for signs and symptoms of bleeding. Please notify the clinic of any medication changes. Kindly notify the clinic if you are unable to make to your next appointment. documented in this encounterBON SUMMIT HEALTHC[facility] REGIONAL MEDICAL CENTERLogicMonitor Work Phone: [phone]) [phone] Evaluation + Plan note* Assessment & Plan [...] the patient should seek attention at our [facility] emergency room for neuro rescue. I explained [...] carotid duplex sonography and a clinical visit. [id number] Miscellaneous Notes* Assessment & Plan Note - [...] the patient should seek attention at our [facility] emergency room for neuro rescue. I explained [...] and a clinical visit. documented in this [id number] History of Present illness Narrative* Shahab Buckley [...] content normal. The note was dictated using [employer] dictation system. The voice recognition software is inherently subject to errors including those of syntax and sound- alike substitutions which may escape proofreading. In such instances, original meaning may be extrapolated by contextual derivation. documented in this [id number] Instructions* Patient Instructions* Sophia Gomes MA - 08/26/2022 3:26 PM EST How to contact your Care Team: Provider: MD Kelle Hogan CNP Jill Bender, PA Nurse: Angeles Samano RN To reschedule office appointments call Scheduling [phone] In case of an emergency please call 911. When in need of refills please call the phone number listed above. Please include medication name, pharmacy name and specify 30 or 90 day supply Please check with your pharmacy within 24 hours of your request for refill. You must follow up as directed to continue current refills. Thank you! documented in this [id number] History of Present illness Narrative* Rogerio Gruber, [facility] - 08/24/2022 8:00 AM EST [facility] Medication Management ANTICOAGULATION Referring Provider: Dr Nicole [...] 08/24/2022 8:28 AM documented in this encounterSENTARA PRINCESS ANNE HOSPITALMobbr [employer] Work Phone: [phone] Hospital Discharge instructions* Patient Instructions* Rogerio Gruber RPH - 08/24/2022 8:00 AM EST Decrease current dose of warfarin as instructed on dosing calendar provided. Continue to monitor urine and stool for signs and symptoms of bleeding. Please notify the clinic of any medication changes. Kindly notify the clinic if you are unable to make to your next appointment. documented in this encounterSENTARA PRINCESS ANNE HOSPITALScreenburn Phone: [phone]) [phone] History of Present illness Narrative* Rogerio Gruber RPH - 07/27/2022 8:00 AM EST [facility] Medication Management ANTICOAGULATION Referring Provider: Dr [...] PharmD 07/27/2022 8:21 AM documented in this encounterHEN[facility] Work Phone: [phone] Hospital Discharge instructions* Patient Instructions* Rogerio Gruber RPH - 07/27/2022 8:00 AM EST Decrease current dose of warfarin as instructed on dosing calendar provided. Continue to monitor urine and stool for signs and symptoms of bleeding. Please notify the clinic of any medication changes. Kindly notify the clinic if you are unable to make to your next appointment. documented in this encounterHEN[facility] Work Phone: [phone] History of Present illness Narrative* Rogerio Gruber RPH - 06/01/2022 8:00 AM EDT [facility] Medication Management ANTICOAGULATION Referring Provider: Dr [...] PharmD 06/01/2022 8:22 AM documented in this encounterCARIL[facility] [employer] Work Phone: [phone] Hospital Discharge instructions* Patient Instructions* Rogerio Gruber [...] appointment. documented in this encounterCARILION [facility] Blog[employer]ce Phone: [phone] History of Present illness Narrative* Rogerio Gruber RPH - 04/27/2022 8:00 AM EDT [facility] Medication Management ANTICOAGULATION Referring Provider: Dr [...] PharmD 04/27/2022 8:24 AM documented in this encounterHEN[facility] Work Phone: [phone] Hospital Discharge instructions* Patient Instructions* Rogerio Gruber RPH - 04/27/2022 8:00 AM EDT Increase current dose of warfarin as instructed on dosing calendar provided. Continue to monitor urine and stool for signs and symptoms of bleeding. Please notify the clinic of any medication changes. Kindly notify the clinic if you are unable to make to your next appointment. documented in this encounterHENRICO [facility] [employer] Phone: [phone]) 577-334508-24-2022 History of Present illness Narrative* Rogerio Gruber RPH - 03/30/2022 8:00 AM EDT [facility] Medication Management ANTICOAGULATION Referring Provider: Dr [...] PharmD 03/30/2022 8:13 AM documented in this encounterNORWOOD HOSPITALPokitDok Phone: [phone] Hospital Discharge instructions* Patient Instructions* Rogerio Gruber RPH - 03/30/2022 8:00 AM EDT Continue current dose of warfarin as instructed on dosing calendar provided. Continue to monitor urine and stool for signs and symptoms of bleeding. Please notify the clinic of any medication changes. Kindly notify the clinic if you are unable to make to your next appointment. documented in this encounterTEMPE [facility]. [facility] Phone: [phone]) 224-574908-10-2022 History of Present illness Narrative* Rogerio Gruber RPH - 03/16/2022 8:20 AM EDT [facility] Medication [...] PharmD 03/16/2022 8:35 AM documented in this encounterHEN[facility] [employer] Phone: [phone] Hospital Discharge instructions* Patient Instructions* Rogerio Gruber RPH - 03/16/2022 8:20 AM EDT Increase current dose of warfarin as instructed on dosing calendar provided. Continue to monitor urine and stool for signs and symptoms of bleeding. Please notify the clinic of any medication changes. Kindly notify the clinic if you are unable to make to your next appointment. documented in this encounterSENTARA PRINCESS ANNE HOSPITALScreenburn Phone: [phone] History of Present illness Narrative* Rogerio Gruber RPH - 03/02/2022 8:00 AM EDT [facility] Medication Management ANTICOAGULATION Referring Provider: Dr [...] PharmD 03/02/2022 8:13 AM [facility] encounterIn[facility] Phone: [phone] Hospital Discharge instructions* Patient Instructions* Rogerio Gruber RPH - 03/02/2022 8:00 AM EDT Increase current dose of warfarin as instructed on dosing calendar provided. Continue to monitor urine and stool for signs and symptoms of bleeding. Please notify the clinic of any medication changes. Kindly notify the clinic if you are unable to make to your next appointment. documented in this encounterInova Children's Hospital Phone: [phone] 541-951607-19-2022 History of Present illness Narrative* Marion Bell RPH - 02/22/2022 8:20 AM EDT [facility] Medication Management ANTICOAGULATION Referring Provider: Dr [...] Accepted: 5 Time Spent (min): 30 Marion Bell, Atif., 02/22/2022,10:21 AM documented in this encounterSENTARA PRINCESS ANNE HOSPITALEmergent Views [facility] Work Phone: [phone] Hospital Discharge instructions* Patient Instructions* Marion Bell RPH - 02/22/2022 8:20 AM EDT Please increase your dosing to take 1/2 tablet (1.25mg) on Sundays and and 1 tablet(2.5mg) all other days. Continue to monitor for signs of bleeding. Return to coumadin clinic in 8 days. documented in this encounterSENTARA PRINCESS ANNE HOSPITALMobbr [employer] [facility] Phone: [phone] Evaluation + Plan note* Assessment & Plan [...] infarction and high intensity statin therapy follows [place] [employer] guidelines. [id number] Miscellaneous Notes* Assessment & Plan Note - [...] infarction and high intensity statin therapy follows [place] [employer] guidelines. documented in this [id number] History of Present illness Narrative* Shahab Buckley [...] infarction and high intensity statin therapy follows [place] [employer] guidelines. Gregg Foster 1955 66 [...] or hematoma. The note was dictated using [employer] dictation system. The voice recognition software is inherently subject to errors including those of syntax and sound- alike substitutions which may escape proofreading. In such instances, original meaning may be extrapolated by contextual derivation. documented in this [id number] Instructions* Patient Instructions* Sophia Gomes MA - 02/11/2022 3:42 PM EDT How to contact your Care Team: Provider: MD Kelle Hogan CNP Jill Bender, PA Nurse: Angeles Samano RN To reschedule office appointments call Scheduling [phone] In case of an emergency please call 911. When in need of refills please call the phone number listed above. Please include medication name, pharmacy name and specify 30 or 90 day supply Please check with your pharmacy within 24 hours of your request for refill. You must follow up as directed to continue current refills. Thank you! documented in this [id number] History of Present illness Narrative* Raffy Richardson, [facility] - 02/03/2022 7:40 AM EDT [facility] Medication Management ANTICOAGULATION Referring Provider: Dr. Ayde [...] Raffy Richardson RPH, PharmD documented in this encounterHENRICO [facility] Work Phone: [phone] Hospital Discharge instructions* Patient Instructions* Raffy Richardson [...] to your next appointment. documented in this encounterHENR[facility] Work Phone: [phone]) 422-890506-23-2022 History of Present illness Narrative* Raffy Richardson RPH - 01/27/2022 8:00 AM EDT [facility] Medication Management ANTICOAGULATION Referring Provider: Dr. [...] Raffy Richardson RPH, PharmD documented in this encounterHENRICO [facility] Work Phone: [phone] Hospital Discharge instructions* Patient Instructions* Raffy Richardson [...] to your next appointment. documented in this encounterHENR[facility] Work Phone: [phone]) [phone] History of Present illness Narrative* Raffy Richardson RPH - 01/20/2022 7:40 AM EDT [facility] Medication Management ANTICOAGULATION Referring Provider: Dr. [...] Raffy Richardson RP, PharmD documented in this encounterSENTARA PRINCESS ANNE HOSPITALScreenburn Phone: [phone] Hospital Discharge instructions* Patient Instructions* Raffy Richardson [...] your next appointment. documented in this encounterSENTARA PRINCESS ANNE HOSPITALMobbr [employer] Work Phone: [phone] History of Present illness Narrative* Raffy Richardson RPH - 01/13/2022 7:40 AM EDT [facility] Medication Management ANTICOAGULATION Referring Provider: Dr. [...] Raffy Richardson RPH, PharmD documented in this encounterNORWOOD HOSPITALLogicMonitor Work Phone: [phone] Hospital Discharge instructions* Patient Instructions* Rafyf Richardson RP - 01/13/2022 7:40 AM EDT [...] to your next appointment. documented in this encounterNORWOOD HOSPITALPokitDok Phone: [phone] Hospital Discharge instructions* Instructions* Lonnie Hart MD [...] sent through Care Everywhere. * Arm Pain ([place]) * DVT (Deep Vein Thrombosis): General Info ([place]) documented in this encounterNORWOOD HOSPITALPokitDok Phone: [phone] 511-649006-02-2022 History of Present illness Narrative* Raffy Richardson RPH - 01/06/2022 7:40 AM EDT [facility] Medication Management ANTICOAGULATION Referring Provider: Dr. [...] a CT scan of the neck in [place] per Dr. Buckley which showed a blocked [...] follow up visit with Dr. Buckley [place] . No change in other maintenance medications [...] Raffy Richardson RPH, PharmD documented in this encounterTEMPE [facility]. [facility] Phone: [phone] Hospital Discharge instructions* Patient Instructions* Raffy Richardson [...] to your next appointment. documented in this encounterNORWOOD HOSPITALPokitDok Phone: [phone] Hospital course Narrative* Mary Jane Chavarria PA-C - 12/29/2021 9:46 AM EDT DISCHARGE SUMMARY Patient: Gregg Foster Date of : 1955 Site: [facility] Provider: Jeff Cerda MD Admit Date: 12/28/2021 [...] Family Provider: Jeff Cerda MD, Address: [address] [facility] [address] Follow Up: Shahab Buckley MD [address] [place] [address] Follow up on 02/11/2022 3rd floor MOB @ 3:00 pm -please arrive 15 min early SCAN to be performed prior to follow up Jeff Cerda MD [address] [place] [id number] Follow up 1-2 weeks hospital follow up Additional Information: Echocardiogram ordered with results pending prior to discharge Patient instructions, including activity, were given to the patient/family at discharge. Please seethe After Visit Summary in the electronic medical record for details. Time spent on discharge: < 30 minutes Completed by: Mary Jane Chavarria PA-C on 12/29/21, 10:06 AM documented in this [id number] History of Present illness Narrative* Shante Troncoso - 12/29/2021 9:45 AM EDT Spiritual Care Progress Note Completed by: Shante Troncoso Person(s) Present During this Visit: Patient Time Spent in Direct Patient Care: 15 Narrative: While rounding body repairer introduced self and role. Information regarding pastoral care services and how to contact was provided. No family present. The Pastoral Care team will remain available to support patient as needed/requested. Patients Response to Pastoral Care: Appeared to be not engaged Planning for Future Visits: JOSE F Troncoso MDiv Staff Business Process Analyst Pastoral Care Department [facility] [phone] on-call [phone] office 12/29/21 [id number] Visit Background Visit With Patient Visit By Staff Business Process Analyst Visit Progression Introduction Visit Requested By Business Process Analyst Initiated Visit Source Business Process Analyst Initiated Visit Type Inpatient;Rounding Visit Circumstances and Events Routine Visit Visit Length (minutes) 15 Patient's Response to Pastoral Care Appeared to be not engaged Visit Planning PRN Spiritual Assessment Not assessed during visit Uatsdin Assessment Not assessed during this visit Family assessment provided? Not assessed during this visit documented in this [id number] Note* Quick Note - Yanelis Blackmon RN - 12/29/2021 9:14 AM EDT Stroke cart post op assessment complete. [id number] Miscellaneous Notes* Quick Note - Yanelis Blackmon [...] RN - 12/28/2021 4:40 PM EDT Notified Kiaraafadityai of K+ 5.2 and other lab values. [...] from the NIH submission data from the [facility] trial was explained to the patient. We offered the alternatives of carotid endarterectomy and transfemoral stenting. Becauseof the low morbidity and mortality the patient elected to go with the post approval trial sponsoredby the [facility] and [facility] for transcarotid arterial revascularization. PROCEDURE: The [...] occlusive disease. The note was dictated using [employer] dictation system. The voice recognition software is [...] (66 y.o.) Date of Service: 12/28/2021 CSN: [id number] Procedure(s): TRANSCAROTID ARTERY REVASCULARIZATION ANGIOGRAPHY IMAGING Pre-Operative Diagnoses: * Symptomatic right carotid stenosis Post-Operative Diagnoses: * Symptomatic right carotid stenosis * Symptomatic stenosis of right carotid artery [I65.21] Surgeon(s) and Role: * Shahab Buckley MD - Primary Anesthesiologist: Tin Lei MD STAMP ANALYST: Cheyenne Brooks CRNA Student Nurse Grill Prep Cook: [facility] As400 Consultant: Yanet Warren TECHNOLOGIST Scrub Person: Osiris Chapman, TECHNOLOGIST; Miko Grimes, TECHNOLOGIST Community Health Worker Orientee: Celeste Beltran RN Community Health Worker Preceptor: Kathi Medina RN Scrub Person Preceptor: ST Davi Scrub Person Orientee: Velma Palumbo RN ORA PRECEPTOR: Katya Dyer Operative findings: 99% stenosis now completely corrected with TECHNICAL INTERNSHIP/stent right internal carotid artery Intra and immediate post-operative complications: none Type of anesthesia used: General anesthesia Estimated blood loss: 20 mL Implant(s): Implant Name Type Inv. Item Serial No. Vocational Rehabilitation Technician Lot No. LRB No. Used Action STENT 9 X 30MM TRANSCAROTID ENROUTE - SN/A Stent STENT 9 X 30MM TRANSCAROTID ENROUTE N/A [facility] [id number] Right 1 Implanted Wound(s): Wound 12/28/21 1 Surgical Wound Neck Right (Active) Wound Closure Sutures 12/14/21 0002 Wound 12/28/21 2 Surgical Wound Groin Anterior;Right (Active) Wound Closure Sutures;Surgical Adhesive 12/14/21 0002 Shahab Buckley MD 12/28/2021 3:09 PM documented in this [id number] Note* Plan of Care - Belia Ponce [...] Absence of pressure ulcer Outcome: Not Met [id number] Consult note* Sadiq Elizondo MD - 12/28/2021 5:57 PM EDTAssociated Order(s): IP CONSULT TO CARDIOLOGY Please see consult note from today [facility] Work Phone: 1(431) 793-148505-24-2022 Consult note* Sadiq Elizondo MD - 12/28/2021 5:57 PM EDTAssociated Order(s): IP CONSULT TO CARDIOLOGY Please see consult note from today * Sadiq Elizondo MD - 12/28/2021 5:05 PM EDT General Cardiology Inpatient Consult Heart & Vascular [facility] 12/28/2021 Sadiq Elizondo MD [facility] Patient: Gregg Foster Date of : [...] plan for further details. Sadiq Elizondo MD [facility] Non-Invasive Cardiology [facility] Heart and Vascular Subjective Reason for Consultation: [...] results found for: NTPROBNP documented in this [id number] Consult note* Sadiq Elizondo MD - 12/28/2021 5:05 PM EDT General Cardiology Inpatient Consult Heart & Vascular [facility] 12/28/2021 Sadiq Elizondo MD [facility] Patient: Gregg Foster Date of : [...] plan for further details. Sadiq Elizondo MD [facility] Non-Invasive Cardiology [facility] Heart and Vascular Subjective Reason for Consultation: [...] 33 12/28/2021 No results found for: NTPROBNP [id number] Note* Quick Note - Tiffani Hills RN - 12/28/2021 4:40 PM EDT Notified [facility] of K+ 5.2 and other lab values. [id number] Attending History and physical note* Shahab Buckley MD - 12/28/2021 11:58 AM EDT INTERVAL HISTORY AND PHYSICAL Patient Name: Gregg Foster Admit Date: [id number] MR #: [id number] : 1955 The H&P has been reviewed [...] based on the data from the [place] Stroke and Carotid Endarterectomy Trial. The patient [...] doses of a statin medication simvastatin. Gregg AburtoKristin 1955 66 y.o. male who presents to [...] content normal. The note was dictated using [employer] dictation system. The voice recognition software is inherently subject to errors including those of syntax and sound- alike substitutions which may escape proofreading. In such instances, original meaning may be extrapolated by contextual derivation. [id number] Note* Op Note - Shahab Buckley MD - 12/28/2021 11:58 AM EDT Preprocedure diagnosis: Symptomatic laterality right arotid stenosis Post procedure diagnosis: Symptomatic right carotid stenosis Procedures performed: Right Transcarotid arterial revascularization Surgeon: Shahab A Buckley M.D. FACS Fluoroscopy dose: 34.15 Gycm2 [...] with the post approval trial sponsoredby the [facility] and [facility] for transcarotid arterial revascularization. PROCEDURE: The [...] occlusive disease. The note was dictated using [employer] dictation system. The voice recognition software is inherently subject to errors including those of syntax and sound- alike substitutions which may escape proofreading. In such instances, original meaning may be extrapolated by contextual derivation. [id number] Note* Brief Op Note - Shahab Buckley MD - 12/28/2021 11:58 AM EDT Brief Post Operative Note Patient Name: Gregg Foster : 1955 (66 y.o.) Date of Service: 12/28/2021 [facility]: [id number] Procedure(s): TRANSCAROTID ARTERY REVASCULARIZATION ANGIOGRAPHY IMAGING Pre-Operative Diagnoses: * Symptomatic right carotid stenosis Post-Operative Diagnoses: * Symptomatic right carotid stenosis * Symptomatic stenosis of right carotid artery [I65.21] Surgeon(s) and Role: * Shahab Buckley MD - Primary Anesthesiologist: Tin Lei MD STAMP ANALYST: Cheyenne Brooks CRNA Student Nurse Grill Prep Cook: [facility] As400 Consultant: Yanet Warren, TECHNOLOGIST Scrub Person: Osiris Chapman, TECHNOLOGIST; Miko Grimes, TECHNOLOGIST Community Health Worker Orientee: Celeste Beltran RN Community Health Worker Preceptor: Kathi Medina RN Scrub Person Preceptor: ST Davi Scrub Person Orientee: Velma Palumbo RN ORA PRECEPTOR: Katya Dyer Operative findings: 99% stenosis now completely corrected with TECHNICAL INTERNSHIP/stent right internal carotid artery Intra and immediate post-operative complications: none Type of anesthesia used: General anesthesia Estimated blood loss: 20 mL Implant(s): Implant Name Type Inv. Item Serial No. Vocational Rehabilitation Technician Lot No. LRB No. Used Action STENT 9 X 30MM TRANSCAROTID ENROUTE - SN/A Stent STENT 9 X 30MM TRANSCAROTID ENROUTE N/A [facility] [id number] Right 1 Implanted Wound(s): Wound 12/28/21 1 Surgical Wound Neck Right (Active) Wound Closure Sutures 12/14/21 0002 Wound 12/28/21 2 Surgical Wound Groin Anterior;Right (Active) Wound Closure Sutures;Surgical Adhesive 12/14/21 0002 Shahab Buckley MD 12/28/2021 3:09 PM [id number] History and physical note* Shahab Buckley MD - 12/28/2021 11:58 AM EDT INTERVAL HISTORY AND PHYSICAL Patient Name: Gregg Foster Admit Date: [id number] [id number] [id number] 1955 The H&P has been reviewed [...] based on the data from the [place] Stroke and Carotid Endarterectomy Trial. The patient [...] content normal. The note was dictated using [employer] dictation system. The voice recognition software is inherently subject to errors including those of syntax and sound- alike substitutions which may escape proofreading. In such instances, original meaning may be extrapolated by contextual derivation. documented in this [id number] Nurse Note* Jessica De León RN - 12/28/2021 10:[address] Martinez completing neurology assessment [id number] Nurse Note* Jessica De León RN - 12/28/2021 10:[address] Martinez completing neurology assessment documented in this [id number] History of Present illness Narrative* Raffy Richardson, [facility] - 12/22/2021 7:40 AM EDT [facility] Medication Management ANTICOAGULATION Referring Provider: Dr. Ayde [...] As discussed during his last appointment, Gregg's surgical assistant had noted retinal embolization so he recommended duplex sonography of the carotid arteries. He had a CT scan of the neck in [place] per Dr. Buckley and has a blocked [...] Raffy Richardson RPH, PharmD documented in this [facility] [employer] Phone: 1([phone]) 208-386105-18-2022 Hospital Discharge instructions* Patient Instructions* Raffy Richardson [...] to your next appointment. documented in this [employer] Phone: [phone]) 591-720805-14-2022 History of Present illness Narrative* Shahab Buckley [...] revascularization for the last2 years in the [facility]. The institutional complication rate is significantly below 6% requested by the patient's insurance company. documented in this [id number] Evaluation + Plan note* Assessment & Plan Note - Shahab Buckley MD - 12/09/2021 11:07 PM EDT Associated Problem(s): Symptomatic stenosis of right carotid artery I think the patient would benefit from carotid intervention based on the data from the [place] Stroke and Carotid Endarterectomy Trial. The patient [...] moderate doses of a statin medication simvastatin. [id number] Miscellaneous Notes* Assessment & Plan Note - Shahab Buckley MD - 12/09/2021 11:07 PM EDTAssociated Problem(s): Symptomatic stenosis of right carotid artery I think the patient would benefit from carotid intervention based on the data from the [place] Stroke and Carotid Endarterectomy Trial. The patient [...] a statin medication simvastatin. documented in this [id number] History of Present illness Narrative* Shahab Buckley MD - 12/09/2021 11:05 PM EDT Assessment Symptomatic stenosis of right carotid artery I think the patient would benefit from carotid intervention based on the data from the [place] Stroke and Carotid Endarterectomy Trial. The patient [...] content normal. The note was dictated using [employer] dictation system. The voice recognition software is inherently subject to errors including those of syntax and sound- alike substitutions which may escape proofreading. In such instances, original meaning may be extrapolated by contextual derivation. documented in this [id number] History of Present illness Narrative* Raffy Richardson, [facility] - 12/09/2021 7:40 AM EDT [facility] Medication Management ANTICOAGULATION Referring Provider: Dr. [...] visit here in the clinic and his surgical assistant noted retinal embolization so he recommended duplex sonography of the carotid arteries. Gregg says he had a CT scan of the neck in [place] earlier this week per Dr. Buckley and [...] Raffy Richardson RPH, PharmD documented in this [facility] Phone: [phone]) 159-802505-05-2022 Hospital Discharge instructions* Patient Instructions* Raffy Richardson [...] to your next appointment. documented in this [facility] Phone: [phone]) 916-738305-04-2022 Instructions* Patient Instructions* Sophia Gomes MA - 12/08/2021 3:52 PM EDT How to contact your Care Team: Provider: MD Kelle Hogan CNP Jill Bender, PA Nurse: Angeles Samano RN To reschedule office appointments call Scheduling [phone] In case of an emergency please call 911. When in need of refills please call the phone number listed above. Please include medication name, pharmacy name and specify 30 or 90 day supply Please check with your pharmacy within 24 hours of your request for refill. You must follow up as directed to continue current refills. Thank you! documented in this [id number] History of Present illness Narrative* Raffy Richardson RPH - 11/16/2021 8:00 AM EDT [facility] Referring Provider: Dr. [...] Raffy Richardson RPH, PharmD documented in this [facility] Phone: [phone]) [phone] Hospital Discharge instructions* Patient Instructions* Raffy Richardson [...] to your next appointment. documented in this [facility] [employer] Phone: [phone]) 706-957901-04-2022 History of Present illness Narrative* Raffy Richardson, [facility] - 08/10/2021 8:00 AM EST [facility] Medication Management ANTICOAGULATION Referring Provider: Dr. Ayde Nicole GOAL INR: 2.0-3.0 TODAY'S INR: 3.2 WARFARIN Dosage: HOLD x 1 dose, then resume 5 mg Tu and Mon and 2.5 mg daily all [...] Raffy Richardson RPH, PharmD documented in this [employer] Phone: [phone]) [phone] Hospital Discharge instructions* Patient Instructions* Raffy Richardson [...] to your next appointment. documented in this [employer] Phone: 1(695) 909-859711-01-2021 History of Present illness Narrative* Raffy Richardson RPH - 06/07/2021 7:30 AM EDT [facility] Medication Management ANTICOAGULATION Referring Provider: Dr. Ayde Nicole GOAL INR: 2.0-3.0 TODAY'S INR: 3.1 WARFARIN Dosage: 2.5 mg warfarin x 2 doses, then resume 5 mg and Mon and [...] Raffy Richardson RPH, PharmD documented in this [employer] Phone: 1([phone]) [phone] Hospital Discharge instructions* Patient Instructions* Raffy Richardson [...] to your next appointment. documented in this [employer] Phone: 1([phone]) 122-812109-17-2021 History of Present illness Narrative* Raffy Richardson RPH - 04/23/2021 7:30 AM EDT [facility] Medication Management ANTICOAGULATION Referring Provider: Dr. [...] Raffy Richardson RPH, PharmD documented in this [facility] Phone: 1([phone]) 574-670709-17-2021 Hospital Discharge instructions* Patient Instructions* Raffy Richardson [...] to your next appointment. documented in this [facility] Phone: 1([phone]) 576-108707-26-2021 History of Present illness Narrative* Lorri Carmen [facility] - 03/01/2021 10:30 AM EDT [facility] Medication Management ANTICOAGULATION Referring Provider: Dr. [...] Lorri Carmen RPH, PharmD documented in this [employer] Phone: [phone] 655-251307-26-2021 Hospital Discharge instructions* Patient Instructions* Lorri Carmen [...] to your next appointment. documented in this [employer] Phone: [phone]) 510-262305-25-2021 History of Present illness Narrative* Raffy Richardson, TRINI - 12/29/2020 8:00 AM EDT [facility] [...] 11/23/[address] Ayde Matthews DO at [facility] His surgery was initially scheduled for last [...] Raffy Richardson RPH, PharmD documented in this [employer] Phone: [phone] 554-216205-25-2021 Hospital Discharge instructions* Patient Instructions* Raffy Richardson [...] to your next appointment. documented in this [employer] Phone: [phone] History of Present illness Narrative* Bethanie Giordano RN - 11/23/2020 10:12 AM EDT Patient transferred to room 60 via stretcher for phase 2. documented in this [employer] Phone: [phone] 240-108301-27-2020 History of Present illness Narrative* Raffy Richardson [...] referred by his/her physician. documented in this [employer] Phone: [phone]) 873-740301-27-2020 Hospital Discharge instructions* Patient Instructions* Raffy Richardson [facility] - 09/02/2019 11:30 AM EST Continue current [...] to your next appointment. documented in this [employer]Hidden [employer] Phone: [phone] 777-819201-13-2020 History of Present illness Narrative* Meka Eagle, RN - 08/19/2019 11:16 AM EST Pt reports little tightness in chest after Lexiscan administered. 11:22 Pt denies chest pain or shortness of breath now. documented in this [employer]Hidden [employer] Phone: [phone] Hospital Discharge instructions* Instructions* Eloina Pat MD - 08/12/2019 Lasix 20 mg take 2 tablets in a.m. and 1 tablet p.m. for one week Repeat Bilirubin tomorrow. Follow-up with Dr. Talbert on * Attachments The following attachments cannot be sent through Care Everywhere. * Gallstones ([place]) documented in this [employer]Hidden Radio Phone: [email or web address] note* Diagnosis Post-op pain- Primary Other acute postoperative pain Recurrent biliary colic Calculus of gallbladder without mention of cholecystitis or obstruction Sludge in gallbladder Calculus of gallbladder without mention of cholecystitis or obstruction documented in this encounter [employer] Phone: evaluation note* Diagnosis LV (left ventricular) mural thrombus- Primary Acute myocardial infarction, unspecified site, episode of care unspecified MCC (current) use of anticoagulants Long-term (current) use of anticoagulants documented in this encounter [employer] Phone: evaluation note* Diagnosis ICD (implantable cardioverter-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, unspecified vessel or lesion type Hypertension, unspecified type Vitamin D deficiency disease Unspecified vitamin D deficiency documented in this encounter [employer] Phone: evalgxterx note* Diagnosis ICD (implantable cardioverter-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, unspecified vessel or lesion type Hypertension, unspecified type Vitamin D deficiency disease Unspecified vitamin D deficiency documented in this encounter [employer] Phone: evaluxncow note* Diagnosis LV (left ventricular) mural thrombus- Primary Acute myocardial infarction, unspecified site, episode of care unspecified MCC (current) use of anticoagulants Long-term (current) use of anticoagulants documented in this encounter [employer] Phone: evalxnwvau note* Diagnosis LV (left ventricular) mural thrombus- Primary Acute myocardial infarction, unspecified site, episode of care unspecified 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 Long-term (current) use of anticoagulants documented in this encounter [employer] Phone: evaliklfex note* Diagnosis LV (left ventricular) mural thrombus- Primary Acute myocardial infarction, unspecified site, episode of care unspecified MCC (current) use of anticoagulants Long-term (current) use of anticoagulants documented in this encounter [employer] Phone: evalscrstk note* Diagnosis LV (left ventricular) mural thrombus- Primary Acute myocardial infarction, unspecified site, episode of care unspecified 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 Long-term (current) use of anticoagulants documented in this encounter [employer] Phone: evalunthyl note* Diagnosis Central artery occlusion of retina, left documented in this encounter [employer] Phone: evaltjcgzl note* Diagnosis Acute on chronic congestive heart failure, unspecified heart failure type (HCC)- Primary 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, unspecified vessel or lesion type Hypertension, unspecified type Other specified diabetes mellitus without complication, with long-term current use of insulin (HCC) Cardiomyopathy, unspecified type (HCC) Shortness of breath Elevated bilirubin Disorders of bilirubin excretion Calculus of gallbladder without cholecystitis without obstruction Calculus of gallbladder without mention of cholecystitis or obstruction documented in this encounter [employer] Phone: evaluation note* Diagnosis Elevated bilirubin Disorders of bilirubin excretion Calculus of gallbladder without cholecystitis without obstruction Calculus of gallbladder without mention of cholecystitis or obstruction documented in this encounter [employer] Phone: evaluation note* Diagnosis Shortness of breath documented in this encounter [employer] Phone: evaluation note* Diagnosis Cardiomyopathy, unspecified type (HCC) Shortness of breath documented in this encounter [employer] Phone: evalfzearc note* Diagnosis MCC (current) use of anticoagulants Long-term (current) use of anticoagulants LV (left ventricular) mural thrombus Acute myocardial infarction, unspecified site, episode of care unspecified documented in this encounter [employer] Phone: evaluation note* Diagnosis ICD (implantable cardioverter-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, unspecified vessel or lesion type Hypertension, unspecified type Vitamin D deficiency disease Unspecified vitamin D deficiency Shortness of breath documented in this encounter [employer] Phone: evaluation note* Diagnosis LV (left ventricular) mural thrombus- Primary Acute myocardial infarction, unspecified site, episode of care unspecified MCC (current) use of anticoagulants Long-term (current) use of anticoagulants documented in this encounter [employer] Phone: evaluation note* Diagnosis Elevated serum creatinine- Primary Other nonspecific findings on examination of blood Atherosclerosis of right carotid artery [facility] Diagnosis Symptomatic stenosis of right carotid artery [facility] Diagnosis Symptomatic stenosis of right carotid artery- Primary Symptomatic stenosis of right carotid artery [facility]* Diagnosis LV (left ventricular) mural thrombus- Primary Acute myocardial infarction, unspecified site, episode of care unspecified MCC (current) use of anticoagulants Long-term (current) use of anticoagulants documented in this encounter [employer] Phone: evaluation note* Diagnosis Symptomatic stenosis of right carotid artery- Primary Carotid stenosis, symptomatic w/o infarct, right Symptomatic stenosis of right carotid artery [facility]* Diagnosis Left arm pain- Primary Pain in limb documented in this encounter [employer] Phone: evalberkff note* Diagnosis Left arm pain Pain in limb documented in this encounter [employer] Phone: evalegvrub note* Diagnosis LV (left ventricular) mural thrombus- Primary Acute myocardial infarction, unspecified site, episode of care unspecified 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 Long-term (current) use of anticoagulants documented in this encounter [employer] Phone: evaldhlnfu note* Diagnosis LV (left ventricular) mural thrombus- Primary Acute myocardial infarction, unspecified site, episode of care unspecified 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 Long-term (current) use of anticoagulants documented in this encounter [employer] Phone: evaluation note* Diagnosis Carotid stenosis, symptomatic w/o infarct, right- Primary Symptomatic stenosis of right carotid artery [facility]* Diagnosis ICD (implantable cardioverter-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, unspecified vessel or lesion type Hypertension, unspecified type Vitamin D deficiency disease Unspecified vitamin D deficiency Cardiomyopathy, unspecified type (HCC) SOB (shortness of breath) Shortness of breath documented in this encounter [employer] Phone: evalxvwfxo note* Diagnosis LV (left ventricular) mural thrombus- Primary Acute myocardial infarction, unspecified site, episode of care unspecified 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 Long-term (current) use of anticoagulants documented in this encounter [employer] Phone: evalvhugwb note* Diagnosis ICD (implantable cardioverter-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, unspecified vessel or lesion type Hypertension, unspecified type Vitamin D deficiency disease Unspecified vitamin D deficiency Cardiomyopathy, unspecified type (HCC) SOB (shortness of breath) Shortness of breath Other specified diabetes mellitus without complication, with long-term current use of insulin (HCC) documented in this encounter [employer] Phone: evaluation note* Diagnosis Coronary artery disease, unspecified vessel or lesion type, unspecified whether angina present, unspecified whether apache or transplanted heart documented in this encounter [employer] Phone: evalhrtiuz note* Diagnosis LV (left ventricular) mural thrombus- Primary Acute myocardial infarction, unspecified site, episode of care unspecified MCC (current) use of anticoagulants Long-term (current) use of anticoagulants documented in this encounter [employer] Phone: evaluation note* Diagnosis LV (left ventricular) mural thrombus- Primary Acute myocardial infarction, unspecified site, episode of care unspecified MCC (current) use of anticoagulants Long-term (current) use of anticoagulants documented in this encounter [employer] Phone: evaluation note* Diagnosis Carotid stenosis, symptomatic w/o infarct, right- Primary Left carotid stenosis documented in this encounter [facility] note* Diagnosis ICD (implantable cardioverter-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 [employer] [facility] [place] [facility]* Diagnosis Heart disease- Primary Heart disease, unspecified documented in this encounter [facility] note* Diagnosis Frequent PVCs- Primary Other premature beats documented in this encounter [facility] note* Diagnosis Chronic systolic HF (heart failure) (HCC)- Primary Chronic systolic heart failure Dysuria Frequent PVCs Other premature beats Chronic combined systolic and diastolic congestive heart failure (HCC) Chronic combined systolic and diastolic heart failure Cardiomyopathy, nonischemic (HCC) Other primary cardiomyopathies documented in this encounter [facility] note* Diagnosis Paroxysmal atrial fibrillation (HCC)- Primary Atrial fibrillation Pre-op exam Preoperative examination, unspecified documented in this encounter [facility] note* Diagnosis Chronic systolic HF (heart failure) (HCC)- Primary Chronic systolic heart failure Paroxysmal atrial fibrillation (HCC) Atrial fibrillation Cardiomyopathy, nonischemic (HCC) Other primary cardiomyopathies Frequent PVCs Other premature beats documented in this encounter [facility] note* Diagnosis Chronic systolic HF (heart failure) (HCC)- Primary Chronic systolic heart failure Coronary artery disease involving apache coronary artery 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 pectoris Atrial fibrillation, chronic (HCC) Atrial fibrillation documented in this encounter [facility] note* Diagnosis Critical limb ischemia of right lower extremity (HCC)- Primary documented in this encounter [facility] note* Diagnosis PAD (peripheral artery disease) (HCC)- Primary Unspecified peripheral vascular disease documented in this encounter [facility] note* Diagnosis Pulmonary hypertension (CMS/HCC)- Primary Other chronic pulmonary heart diseases documented in this encounter [facility] note* Diagnosis Chronic systolic congestive heart failure (HCC)- Primary Chronic systolic heart failure IVCD (intraventricular conduction defect) Other heart block On anticoagulant therapy Long-term (current) use of anticoagulants Atrial fibrillation, persistent (HCC) Atrial fibrillation documented in this encounter [facility] note* Diagnosis Chronic systolic HF (heart failure) (HCC) Chronic systolic heart failure documented in this encounter [facility] note* Diagnosis PAD (peripheral artery disease) (HCC)- Primary Unspecified peripheral vascular disease documented in this encounter [facility] note* Diagnosis PAD (peripheral artery disease) (HCC)- Primary Peripheral vascular disease, unspecified Peripheral vascular disease (HCC) Peripheral vascular disease, unspecified Diabetic foot infection (HCC) (HCC) Type II or unspecified type diabetes mellitus with other specified manifestations, not stated as uncontrolled Lower limb ulcer, heel or midfoot, right, with fat layer exposed (HCC) documented in this encounter [facility] note* Diagnosis PAD (peripheral artery disease) (HCC) Peripheral vascular disease, unspecified Peripheral vascular disease (HCC) Peripheral vascular disease, unspecified Diabetic foot infection (HCC) (HCC) Type II or unspecified type diabetes mellitus with other specified manifestations, not stated as uncontrolled Lower limb ulcer, heel or midfoot, right, with fat layer exposed (HCC) documented in this encounter [facility] Discharge instructions* Instructions* Karl Taveras RN - [...] urinate call your doctor [facility] Phone: reason for referral (narrative)* Diagnostic Procedure Only (Routine) - Closed Specialty Diagnoses / Procedures Referred By Trang giraldo Referred To Contact MOLECULAR & FUNCTIONAL IMAGING Diagnoses Heart disease Procedures NM PET/CT CARDIAC VIABILITY MYOCRD IMG PET PRFUJ W/METAB 2RTRACER CNCRNT CT Mira Willoughby MD [address] [place] [address] Molecular & Functional Imaging [address] [id number] Referral ID Status Reason Start Date Expiration Date V isits Requested Visits Authorized [id number] Closed Auto-Generate d Referral 03/21/2023 04/19/2024 3 3 [facility] for referral (narrative)* Diagnostic Procedure Only (Routine) - Closed Specialty Diagnoses / Procedures Referred By Trang giraldo Referred To Contact XR IMAGING Diagnoses PAD (peripheral artery disease) (HCC) Peripheral vascular disease (HCC) Diabetic foot infection (HCC) (HCC) Lower limb ulcer, heel or midfoot, right, with fat layer exposed (HCC) Procedures XR FOOT GENERAL 3V AP/LAT/OBL BILATERAL RADEX FOOT COMPLETE MINIMUM 3 VIEWS Solitario Cantor DPM [address] [id number] [place] [address] Referral ID Status Reason Start Date Expiration Date V isits Requested Visits Authorized [id number] Closed Auto-Generate d Referral 10/19/2023 11/16/2024 1 1 * Outpatient Procedure (Routine) - Pending Review Specialty Diagnoses / Procedures Referred By Trang giraldo Referred To Contact [facility] Diagnoses PAD (peripheral artery disease) (HCC) Peripheral vascular disease (HCC) Diabetic foot infection (HCC) (HCC) Lower limb ulcer, heel or midfoot, right, with fat layer exposed (HCC) Procedures PVR ANK/VELASCO/TOE NACHO VAS LAB NON-INVAS PHYSIOLOGIC STD EXTREMITY ART 2 LEVEL Solitario Cantor DPM [address] [place] [address] [facility] [address] [place] [address] Referral ID Status Reason Start Date Expiration Date Visits Requested Visits Authorized [id number] Pending Review Auto-Generat ed Referral 10/19/2023 10/17/2024 1 1 [facility] for visit Narrative* Auth/Cert Specialty Diagnoses / Procedures Referred By Trang giraldo Referred To Contact Diagnoses Symptomatic stenosis of right carotid artery Procedures TRANSCAROTID ARTERY REVASCULARIZATION Shahab Buckley MD [address] [place], [place] [id number] Referral ID Status Reason Start Date Expiration Date Visits Re quested Visits Authorized [id number] 12/14/2021 1 1 [facility] for visit Narrative* Diagnostic Procedure Only (Routine) - Closed Specialty Diagnoses / Procedures Referred By Trang giraldo Referred To Contact XR IMAGING Diagnoses PAD (peripheral artery disease) (HCC) Peripheral vascular disease (HCC) Diabetic foot infection (HCC) (HCC) Lower limb ulcer, heel or midfoot, right, with fat layer exposed (HCC) Procedures XR FOOT GENERAL 3V AP/LAT/OBL BILATERAL RADEX FOOT COMPLETE MINIMUM 3 VIEWS Solitario Cantor DPM [address] [place] [address] [place] [address] Referral ID Status Reason Start Date Expiration Date V isits Requested Visits Authorized [id number] Closed Auto-Generate d Referral 10/19/2023 11/16/2024 1 1 [facility] Assessments Diagnosis Ischemic cardiomyopathy Other specified forms of chronic ischemic heart disease Diagnosis Kidney insufficiency Unspecified disorder of kidney and ureter 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 Long-term (current) use of anticoagulants LV (left ventricular) mural thrombus Acute myocardial infarction, unspecified site, episode of care unspecified Diagnosis ICD (implantable cardioverter-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, unspecified vessel or lesion type Hypertension, unspecified type Vitamin D deficiency disease Unspecified vitamin D deficiency Shortness of breath Diagnosis Cardiomyopathy, unspecified type (HCC) SOB (shortness of breath) Shortness of breath Diagnosis ICD (implantable cardioverter-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, unspecified vessel or lesion type Hypertension, unspecified type Vitamin D deficiency disease Unspecified vitamin D deficiency Other specified diabetes mellitus without complication, with long-term current use of insulin (HCC) Diagnosis ICD (implantable cardioverter-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, unspecified vessel or lesion type Hypertension, unspecified type Vitamin D deficiency disease Unspecified vitamin D deficiency Other specified diabetes mellitus without complication, with long-term current use of insulin (HCC) 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 Long-term (current) use of anticoagulants LV (left ventricular) mural thrombus Acute myocardial infarction, unspecified site, episode of care unspecified Diagnosis ICD (implantable cardioverter-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, unspecified vessel or lesion type Hypertension, unspecified type Vitamin D deficiency disease Unspecified vitamin D deficiency Shortness of breath Diagnosis MCC (current) use of anticoagulants Long-term (current) use [...] FoundDocuments on File Type Date 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 on File Type Date 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 on File Type Date Recorded Patient Factorer Expl anation ACP-Advance Directive ACP-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 on File Type Date Recorded Patient Factorer Expl anation ACP-Advance Directive ACP-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 on File Type Date 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 Livin g Will 11/26/2021 3:28 PM Documents on File Type Date 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 Livin g [...] Documents on File Type Date Recorded Patient Factorer Expl anation Power of Orthodontist Small Business Owner 03/06/2023 9:14 AM Power Of Orthodontist Small Business Owner Latest Code Status on File Code Status [...] Code 12/28/2021 3:21 PM 12/29/2021 1:40 PM Date Activated Date Inactivated Comments 03/25/2023 7:26 AM 04/13/2023 5:35 PM Question Answer Comments Full Code Order Discussed With: Patient Date Activated Date Inactivated Comments 03/25/2023 7:26 AM 04/13/2023 5:35 PM Question [...] encounter* Patient Instructions* Lorri Carmen RP - 02/20/2020 7:30 AM EDT Continue current [...] encounter* Patient Instructions* Lorri Carmen RP - 04/02/2020 7:30 AM EDT Continue current [...] in this encounter* Patient Instructions* Lorri Carmen [facility] - 05/14/2020 7:30 AM EDT Continue current [...] in this encounter* Patient Instructions* Raffy Richardson, [facility] - 06/03/2019 12:18 PM EDT Continue current [...] documented in this encounter* Patient Instructions* Lorri Carmen, [facility] - 04/11/2019 7:35 AM EDT Continue current [...] appointment. documented in this encounter* Instructions* Mary Fernando, SUDHAKAR - MANAGEMENT TECH - 11/04/2020 Images from the original note [...] drive you home after your procedure. Your show horse driver must be 18 years of age [...] questions, call the Pre-Admission Testing Unit at [phone]. Day of Surgery/Procedure As a patient at [facility] you can expect quality medical and nursing care that is centered on your individual needs. Our goal is to make your surgical experience as comfortableas possible . Directions to the Surgery Center [facility] is located at [address] [place] [address]. Please pull into the Emergency parking lot and stop at the furniture associate mejias. We offer free furniture associate service for all our surgery patients, if you choose not to have furniture associate parking we have additional parking across the street.You will enter the facility following the [facility] sign. Please stop at the studio receptionist desk where you will be checked in by the staff. If you have any questions please call [phone]. Transportation after your procedure. You will need a friend or family member to drive you home after your procedure. Your show horse driver must be18 years of age or [...] You may shave your face or neck. Whitmire your teeth but do not swallow water. [...] or the day of surgery, please call [phone], or [phone] documented in this encounter* Patient Instructions* Raffy Richardson [facility] - 11/17/2020 8:00 AM EDT Continue to [...] encounter History of Present Illness * Lorri Caremn [facility] - 10/17/2019 7:30 AM EDT Fingerstick INR [...] Interventions Accepted: 0 Time Spent (min): 15 Lorir Carmen PharmD [facility] Clinical Pharmacy documented in this encounter* Lorri Carmen [facility] - 01/09/2020 7:30 AM EDT Fingerstick INR [...] Pharmacy documented in this encounter* Lorri Carmen [facility] - 02/20/2020 7:30 AM EDT Fingerstick INR [...] Gregg saw Dr. Nicole on 03/02. Since Amauris [...] Pharmacy documented in this encounter* Lorri Carmen [facility] - 05/14/2020 7:30 AM EDT Fingerstick INR drawn per clinic protocol. Patient states no visible blood in urine and no black tarry stool. Denies any missed doses of warfarin. No change in other maintenance medications or in diet. Since Tk INR remains therapeutic, we will continue current [...] Pharmacy documented in this encounter* Raffy Richardson [facility] - 08/14/2020 9:45 AM EST Venipuncture INR drawn per [facility] lab protocol. All communication is with the [...] PharmD documented in this encounter* Raffy Richardson [facility] - 06/03/2019 12:18 PM EDT Fingerstick INR [...] physician documented in this encounter* Lorri Carmen [facility] - 04/11/2019 7:35 AM EDT Fingerstick INR [...] RN - 11/09/2020 1:30 PM EDT Per Alpesh [place], OK to use Magn[employer] DOS PRN. He doesn't need to be here. 1-800- Cardiac documented in this encounter* Raffy Richardson, [facility] - 11/17/2020 8:00 AM EDT [facility] Medication Management ANTICOAGULATION Referring Doctor: Dr. [...] consultation with Dr. Ayde Matthews DO at [facility] on 10/15/2020 and has a cholelithiasis scheduled [...] to this procedure and was cleared by bareback rider, Dr. 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, unspecified vessel or lesion type Hypertension, unspecified type Vitamin D deficiency disease Shortness of breath Procedures EKG 12 Lead Rafa Nicole MD [address] [place] [address] Status Reason Specialty Diagnoses / Procedures Referred By Contact Referred To Contact Closed Cardiology / Echocardiography Diagnoses Cardiomyopathy, unspecified type (HCC) SOB (shortness of breath) Procedures ECHO Complete 2D W Doppler W Color Rafa Nicole MD [address] [place] [address] [facility] [address] [place] [address] Status Reason Specialty Diagnoses / Procedures Referre d By Contact Referred To Contact Open Cardiology Diagnoses ICD (implantable cardioverter-defibrill ator) in 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, unspecified vessel or lesion type Hypertension, unspecified type Vitamin D deficiency disease Other specified diabetes mellitus without complication, with long-term current use of insulin (HCC) Procedures EKG 12 Lead Rafa Nicole MD [address] [place] [id number] Status Reason Specialty Diagnoses / Procedures Referre d By Contact Referred To Contact Closed Radiology Diagnoses Epigastric pain Procedures US GALLBLADDER RUQ Ayde Matthews, [address] [facility] [address] [place] [address] [facility] [address] [place] [address] Status Reason Specialty Diagnoses / Procedures Referre d By Contact Referred To Contact Open Cardiology Diagnoses ICD (implantable cardioverter-defibrill ator) in 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, unspecified vessel or lesion type Hypertension, unspecified type Vitamin D deficiency disease Procedures EKG 12 Lead Rafa Nicole MD [address] [place] [address] Specialty Diagnoses / Procedures Referred By Contac t Referred To Contact Vascular Lab Diagnoses Central artery occlusion of retina, left Procedures VL DUP CAROTID BILATERAL Jeff Cerda MD [address] [place] [address] Referral ID Status Reason Start Date Expiration Date Visits Re quested Visits Authorized [id number] Open 10/26/2021 10/26/2022 1 1 Status Reason Specialty Diagnoses / Procedures Referred By Contact Referred To Contact Pending Review Cardiology Diagnoses 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 REST STRESS MULT CHG MYOCARDIAL SPECT MULTIPLE STUDIES Rafa Nicole MD [address] [place] [address] [place] [address] Status Reason Specialty Diagnoses / Procedures Referre d By Contact Referred To Contact Closed Cardiology Diagnoses Cardiomyopathy, unspecified type (HCC) Shortness of breath Procedures ECHO Complete 2D W Doppler W Color HC ECHO NO CONTRAST WITH DOP/COLR CO ECHO HEART XTHORACIC,COMPLETE W DOPPLER Rafa Nicole MD [address] [place] [address] [facility] [address] [place] [address] Specialty Diagnoses / Procedures Referred By Contac t Referred To Contact Cardiology Diagnoses Carotid stenosis, symptomatic w/o infarct, right Procedures Ultrasound doppler carotid Mary Jane Chavarria PA-C [address] [id number] Referral ID Status Reason Start Date Expiration Date V isits Requested Visits Authorized [id number] Pending Review 01/29/2022 01/29/2023 1 1 Specialty Diagnoses / Procedures Referred By Contac t Referred To Contact Radiology Diagnoses Left arm pain Procedures VL DUP UPPER EXTREMITY VENOUS LEFT Lonnie Hart MD [address] [place] [address] [place] [address] Referral ID Status Reason Start Date Expiration Date Visits Re quested Visits Authorized [id number] Open 01/07/2022 01/07/2023 1 1 Referral ID Status Reason Start Date Expiration Date Visits Re quested Visits Authorized [id number] Closed 01/07/2022 01/07/2023 1 1 Specialty Diagnoses / Procedures Referred By Contac t Referred To Contact Cardiology Diagnoses Carotid stenosis, symptomatic w/o infarct, right Procedures Carotid Duplex Shahab Buckley MD [address] [place] [address] Referral ID Status Reason Start Date Expiration Date V isits Requested Visits Authorized [id number] Authorized 02/11/2022 02/11/2023 1 1 Specialty Diagnoses / Procedures Referred By Contac t Referred To Contact Cardiology Diagnoses ICD (implantable cardioverter-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, unspecified vessel or lesion type Hypertension, unspecified type Vitamin D deficiency disease Cardiomyopathy, unspecified type (HCC) SOB (shortness of breath) Procedures EKG 12 Lead Rafa Nicole MD [address] [place] [address] Referral ID Status Reason Start Date Expiration Date Visits Re quested Visits Authorized [id number] Open 01/30/2022 01/30/2023 1 1 Referral ID Status Reason Start Date Expiration Date V isits Requested Visits Authorized [id number] Authorized 08/26/2022 08/26/2023 1 1 Specialty Diagnoses / Procedures Referred By Contac t Referred To Contact Flor Vitale MD [address] [place] [address] Referral ID Status Reason Start Date Expiration Date V isits Requested Visits Authorized [id number] Pending Review 1 1 Specialty Diagnoses / Procedures Referred By Contac t Referred To Contact Procedures CARDIOVASCULAR MEDICINE OP FOLLOW UP APPT ORDER Fany Ta, OIL SPRAYING MACHINE OPERATOR.[address] [address] Referral ID Status Reason Start Date Expiration Date Visits Requested Visits Authorized [id number] Ref Not Required PCP Requested Referral 3 06/15/2024 1 1 Specialty Diagnoses / Procedures Referred By Contac t Referred To Contact Procedures CARDIOVASCULAR MEDICINE OP FOLLOW UP APPT ORDER Yannick Zuñiga, PA-C [address] [place] [address] Referral ID Status Reason Start Date Expiration Date Visits Requested Visits Authorized [id number] Ref Not Required PCP Requested Referral 3 06/26/2024 1 1 Specialty Diagnoses / Procedures Referred By Contac t Referred To Contact Procedures CARDIOVASCULAR MEDICINE OP FOLLOW UP APPT ORDER Carolina Stover MD [address] [place] [address] Referral ID Status Reason Start Date Expiration Date Visits Requested Visits Authorized [id number] Ref Not Required PCP Requested Referral 01/11/2024 07/11/2024 1 1 Specialty Diagnoses / Procedures Referred By Contac t Referred To Contact Procedures CARDIOVASCULAR MEDICINE OP FOLLOW UP APPT ORDER Luc Zacarias MD [address] [address] Referral ID Status Reason Start Date Expiration Date Visits Requested Visits Authorized [id number] Ref Not Required PCP Requested Referral 09/20/2023 09/19/2024 1 1 Specialty Diagnoses / Procedures Referred By Trang giraldo Referred To Contact Cardiology Diagnoses PAD (peripheral artery disease) (HCC) Procedures Ultrasound ankle / brachial indices extremity complete Shahab Buckley MD [address] [place] [address] Referral ID Status Reason Start Date Expiration Date V isits Requested Visits Authorized [id number] Authorized 11/09/2023 11/08/2024 1 1 Additional Source [...] section and content) DATE CREATED AUTHOR 01/29/2018 [facility] DATE CREATED AUTHOR AUTHOR'S ORGANIZ ATION 01/29/2018 [facility] DATE CREATED AUTHOR AUTHOR'S ORGANIZ ATION 01/30/2018 [facility] DATE CREATED AUTHOR AUTHOR'S ORGANIZ ATION 02/08/2018 [facility] DATE CREATED AUTHOR AUTHOR'S ORGANIZ ATION 11/25/2020 [facility] DATE CREATED AUTHOR AUTHOR'S ORGANIZ ATION 01/30/2021 [facility] DATE CREATED AUTHOR AUTHOR'S ORGANIZ ATION 01/14/2023 [facility] DATE CREATED AUTHOR AUTHOR'S ORGANIZ ATION 03/16/2023 [facility] DATE CREATED AUTHOR AUTHOR'S ORGANIZ ATION 03/21/2023 [facility] DATE CREATED AUTHOR AUTHOR'S ORGANIZ ATION 03/21[facility]23 [facility] DATE CREATED AUTHOR AUTHOR'S ORGANIZ ATION 03/27/2023 [facility] DATE CREATED AUTHOR AUTHOR'S ORGANIZ ATION 09/08/2023 [facility] DATE CREATED AUTHOR AUTHOR'S ORGANIZ ATION 10/04/2023 [facility] DATE CREATED AUTHOR AUTHOR'S ORGANIZ ATION 10/21/2023 [facility] CREATED AUTHOR AUTHOR'S ORGANIZ ATION 10/22/2023 [facility] Ordered Prescriptions (unrec ognized section and content) Prescription Sig Dispensed Refills Start Date End Da te warfarin (COUMADIN) 5 MG tablet Take 1 tablet on Tuesdays and Saturdays and 1/2 tablet all other days of the week or as directed. [facility] 90 tablet 3 08/14/2020 Prescription [...] skip Fridays) or as directed. Managed by [facility] 90 tablet 3 01/20/2022 Prescription Sig Dispensed Refills Start Date End Da te warfarin (COUMADIN) 2.5 MG tablet Take 1/2 tablet daily or as directed. Managed by [facility] 90 tablet 1 01/27/2022 Prescription Sig Dispensed Refills Start Date End Da te warfarin (COUMADIN) 2.5 MG tablet Take 1 tablet daily or as directed. Managed by [facility]. 90 tablet 1 06/01/2022 Prescription Sig [...] Doppler W Color Rafa Nicole MD [address] [place] [address] [facility] [address] [place] [address] Status Reason Specialty Diagnoses / Procedures Referre d By Contact Referred To Contact Closed Radiology Diagnoses Epigastric pain Procedures US GALLBLADDER RUQ Ayde Matthews DO [address] 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 [address] [place] [address] Status Reason Specialty Diagnoses / Procedures Referre d By Contact Referred To Contact Closed Cardiology Diagnoses Cardiomyopathy, unspecified type (HCC) Shortness of breath Procedures ECHO Complete 2D W Doppler W Color HC ECHO NO CONTRAST WITH DOP/COLR CO ECHO HEART XTHORACIC,COMPLETE W DOPPLER Rafa Nicole MD [address] [place] [address] [facility] [address] [place] [address] Reason Comments Follow-up Reason Comments Arm Pain left lower arm pain and bruising. Patient states its 10 days old from surgery on his carotid. Believes its from IV starts and may infiltration. Specialty Diagnoses / Procedures Referred By Contrichie t Referred To Contact Radiology Diagnoses Left arm pain Procedures VL DUP UPPER EXTREMITY VENOUS LEFT Lonnie Hart MD [address] [place] [address] Referral ID Status Reason Start Date Expiration Date Visits Re quested Visits Authorized [id number] Closed 01/07/2022 01/07/2023 1 1 Reason Onset [...] To Contact Diagnoses Gangrene of right foot ([facility]) PAD (peripheral artery disease) ([facility]) Referral ID Status Reason Start Date Expiration Date Visits Re quested Visits Authorized [id number] 1 1 Reason Comments IV Medication Administration Definity Specialty Diagnoses / Procedures Referred By Contac t Referred To Contact [facility] Diagnoses Chronic systolic HF (heart failure) ([facility]) Procedures ECHO ECHO TTHRC R-T 2D W/WOM-MODE COMPL SPEC&COLR D Flor Vitale MD [address] [place] [address] [facility] [place] [address] Referral ID Status Reason Start Date Expiration Date V isits Requested Visits Authorized [id number] Closed Auto-Generate d Referral 07/05/2023 07/04/2024 1 1 Reason Comments New Care Teams (unrecognized sec tion and content) Possum Trapper Relationship Specialty Start Date End Date Jeff Cerda MD PCP - General 09/01/17 Possum Trapper Relationship Specialty Start Date End Date Jeff Cerda MD PCP - General 09/01/17 Possum Trapper Relationship Specialty Start Date End Date Jeff Cerda MD PCP - General 09/01/17 Possum Trapper Relationship Specialty Start Date End Date Jeff Cerda MD (Fax) PCP - General [facility] 09/07/17 Shahab Buckley MD [address] [place] [address] Vascular Surgery 11/26/21 Possum Trapper Relationship Specialty Start Date End Date Jeff Cerda MD [address] [place] [address] (Fax) PCP - General [facility] 09/07/17 Shahab Buckley MD [address] [place] [address] Vascular Surgery 11/26/21 Possum Trapper Relationship Specialty Start Date End Date Jeff Cerda MD [address] [place] [address] (Fax) PCP - General [facility] Medicine 09/07/17 Shahab Buckley MD [address] [place] [address] Vascular Surgery 11/26/21 Possum Trapper Relationship Specialty Start Date End Date Jeff Cerda MD PCP - General 09/01/17 Possum Trapper Relationship Specialty Start Date End Date Jeff Cerda MD [address] [place] [address] (Fax) PCP - General [facility] 09/07/17 Shahab Buckley MD [address] [place] [address] Vascular Surgery 11/26/21 Possum Trapper Relationship Specialty Start Date End Date Jeff Cerda MD PCP - General 09/01/17 Possum Trapper Relationship Specialty Start Date End Date Jeff Cerda MD PCP - General 09/01/17 Possum Trapper Relationship Specialty Start Date End Date Jeff Cerda MD PCP - General 09/01/17 Possum Trapper Relationship Specialty Start Date End Date Jeff Cerda MD PCP - General 09/01/17 Possum Trapper Relationship Specialty Start Date End Date Jeff Cerda MD [address] [place] [address] PCP - General Family Medicine 09/07/17 Shahab Buckley MD [address] [place] [address] Vascular Surgery 11/26/21 Possum Trapper Relationship Specialty Start Date End Date Jeff Cerda MD PCP - General 09/01/17 Possum Trapper Relationship Specialty Start Date End Date Jeff Cerda MD [address] [place] [address] PCP - General [facility] 09/07/17 Shahab Buckley MD [address] [place] [address] Vascular Surgery 11/26/21 Possum Trapper Relationship Specialty Start Date End Date Jeff Cerda MD PCP - General 09/01/17 Possum Trapper Relationship Specialty Start Date End Date Jeff Cerda MD PCP - General 09/01/17 Possum Trapper Relationship Specialty Start Date End Date Jeff Cerda MD PCP - General 09/01/17 Possum Trapper Relationship Specialty Start Date End Date Jeff Cerda MD PCP - General 09/01/17 Possum Trapper Relationship Specialty Start Date End Date Jeff Cerda MD PCP - General 09/01/17 Possum Trapper Relationship Specialty Start Date End Date Jeff Cerda MD PCP - General 09/01/17 Possum Trapper Relationship Specialty Start Date End Date Jeff Cerda MD [address] [place], [place] [id number] PCP - General Family Medicine 09/07/17 Shahab Buckley MD [address] [place] [address] Vascular Surgery 11/26/21 Possum Trapper Relationship Specialty Start Date End Date Jeff Cerda MD [address] [place] [address] PCP - General Family Medicine 09/07/17 Shahab Buckley MD [address] [place] [address] Vascular Surgery 11/26/21 Possum Trapper Relationship Specialty Start Date End Date Jeff Cerda MD PCP - General 09/01/17 Possum Trapper Relationship Specialty Start Date End Date Brenda Terrell II, MD [address] [address] PCP - General Internal Medicine 10/09/15 Possum Trapper Relationship Specialty Start Date End Date Brenda Terrell II, MD [address] [place] [address] PCP - General Internal Medicine 10/09/15 Possum Trapper Relationship Specialty Start Date End Date Brenda Terrell II, MD [address] [place] [address] PCP - General Internal Medicine 10/09/15 Possum Trapper Relationship Specialty Start Date End Date Brenda Terrell II, MD [address] [place] [address] PCP - General Internal Medicine 10/09/15 [facility] [address] [place] [address] Transitional Care Pharmacist Pharmacy 04/14/23 05/12/23 Possum Trapper Relationship Specialty Start Date End Date Brenda Terrell II, MD [address] [facility] [address] [place] [address] PCP - General Internal Medicine 10/09/15 [facility] [address] [place] [address] Transitional Care Pharmacist Pharmacy 04/14/23 05/12/23 Possum Trapper Relationship Specialty Start Date End Date Brenda Terrell II, MD [address] [place] [address] PCP - General Internal Medicine 10/09/15 [facility] [address] [place] [address] Transitional Care Pharmacist Pharmacy 04/14/23 05/12/23 Possum Trapper Relationship Specialty Start Date End Date Brenda Terrell II, MD [address] [address] PCP - General Internal Medicine 10/09/15 [facility] [address] [place] [address] Transitional Care Pharmacist Pharmacy 04/14/23 05/12/23 Possum Trapper Relationship Specialty Start Date End Date Jeff Cerda MD [address] [place] [address] (Fax) PCP - General Family Medicine 05/12/23 [facility] [address] [place] [address] Transitional Care Pharmacist Pharmacy 04/14/23 05/12/23 Possum Trapper Relationship Specialty Start Date End Date Jeff Cerda MD [address] [place] [address] (Fax) PCP - General Family Medicine 05/12/23 [facility] [address] [place] [address] Transitional Care Pharmacist Pharmacy 04/14/23 05/12/23 Possum Trapper Relationship Specialty Start Date End Date Jeff Cerda MD [address] [place] [address] (Fax) PCP - General Family Medicine 05/12/23 Possum Trapper Relationship Specialty Start Date End Date Hemeyer, Edward Antwon, MD [address] [place] [address] (Fax) PCP - General Family Medicine 05/12/23 Possum Trapper Relationship Specialty Start Date End Date Jeff Cerda MD [address] [place] [address] (Fax) PCP - General Family Medicine 05/12/23 Possum Trapper Relationship Specialty Start Date End Date Jeff Cerda MD [address] [place] [address] (Fax) PCP - General Family Medicine 05/12/23 Possum Trapper Relationship Specialty Start Date End Date Jeff Cerda MD [address] [place] [address] (Fax) PCP - General Family Medicine 05/12/23 Possum Trapper Relationship Specialty Start Date End Date Jeff Cerda MD [address] [place] [address] (Fax) PCP - General Family Medicine 05/12/23 Possum Trapper Relationship Specialty Start Date End Date Jeff Cerda MD [address] [place] [address] (Fax) PCP - General Family Medicine 05/12/23 Possum Trapper Relationship Specialty Start Date End Date Jeff Cerda MD [address] [place] [address] (Fax) PCP - General Family Medicine 05/12/23 Possum Trapper Relationship Specialty Start Date End Date Jeff Cerda MD [address] [place] [address] (Fax) PCP - General Family Medicine 05/12/23 Possum Trapper Relationship Specialty Start Date End Date Jeff Cerda MD [address] [place] [address] (Fax) PCP - General Family Medicine 05/12/23 Possum Trapper Relationship Specialty Start Date End Date Jeff Cerda MD [address] [place] [address] (Fax) PCP - General Family Medicine 09/07/17 Shahab Buckley MD [address] [place] [id number] Vascular Surgery 11/26/21 Possum Trapper Relationship Specialty Start Date End Date Jeff Cerda MD [address] 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 Relationship Specialty Start Date End Date Jeff Cerda MD [address] [place] [address] (Fax) PCP - General Family Medicine 01/03/23 Jeff Cerda MD [address] [place] [place] [address] (Fax) PCP - Medical [facility] 01/05/23 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 [place] [address] (Fax) PCP - General Family Medicine 05/12/23 Possum Trapper Relationship Specialty Start Date End Date Jeff Cerda MD [address] [facility] [place] [place] [address] (Fax) PCP - General Family Medicine 05/12/23 Possum Trapper Relationship Specialty Start Date End Date Jeff Cerda MD [address] [place] [address] PCP - General Family Medicine 05/12/23 Scheduled Active and Recently Administ ered Medications (unrecognized section and content) Medication Order 12/27/2021 12/28/2021 12/29/2021 aspirin EC tablet 81 mg 81 mg, Oral, Daily, First dose on Mon12/29/21 at 0900, DO NOT CRUSH OR CHEW. 0832 (Given - Provid er: Yanelis Blackmon, CARRIE) ceFAZolin (ANCEF) IVPB 2 g (premix) (COMPLETED) [...] West RN) 0833 (Given - Provider: Yanelis Blackmon, CARRIE) gabapentin (NEURONTIN) capsule 300 mg 300 mg, Oral, Every 8 hours scheduled, First dose on Mon12/28/21 at 2200 2220 (Given - Provider: Evi Mckeon, CARRIE) 0507 (Given - Provider: Evi Mckeon, CARRIE) heparin (porcine) injection 5,000 Units (COMPLETED) 5,000 Units, Subcutaneous, Once, On Mon12/28/21 at 1200, For 1 dose, Pre-Procedure, Notify physician if patient refuses. 1145 (MAR Hold - Provider: Transfer Provider, Automatic - [...] necessary. 0833 (Given - Provid er: Yanelis Blackmon, RN) warfarin (COUMADIN) tablet 5 mg (COMPLETED) [...] [employer]. 1949 (Given - Provider: Evi Mckeon, CARRIE) Continuous Medication Order 12/27/2021 12/28/2021 12/29/2021 lactated [...] at 2100 2115 (Given - Provider: Karishma Stein RN) 2019 (Given - Provider: Kenisha Ricci [...] For Downtime Calculator, use: Insulin SC NIGHTtime 2099 (Not Given - Provider: Karishma Stein RN [...] Luciana Johnson RN)2225 (Given - Provider: Kenisha Ricci, RN) 1100 (Due) sodium chloride (PF) (NS) [...] Luciana Johnson RN)2200 (Given - Provider: Kenisha Ricci, RN) 0600 (Not Given - Provider: Karishma Stein RN - Reason: Patient/family refused) torsemide (DEMADEX) tablet 80 mg 80 mg, Oral, 2 times daily, First dose on Mon09/13/23 at 2100 2114 (Given - Provider: Karishma Stein RN) 0906 (Given - Provider: Luciana Johnson, RN)2019 (Given - Provider: Kenisha Ricci, RN) 0843 (Given - Provider: Princess Cruz [...] Stein RN)1140 (New Bag - Provider: Luciana Johnson RN)1400 (Stopped - Provider: Luciana Johnson RN) sodium chloride 0.9% (NS) (CANCELED) 100 mL/hr, Intravenous, Continuous, Starting on Annalisa 09/14/23 at 0600 0603 (New Bag - Provider: Karishma Stein RN)0628 (Rate/Dose Verify - Provider: Karishma Stein RN)1657 (New Bag - Provider: Luciana Johnson RN) 0900 (Stopped - Provider: Princess Cruz LPN) PRN Medication Order 09/13/2023 09/14/2023 09/15/2023 acetaminophen (TYLENOL) tablet 650 mg 650 mg, Oral, Every 4 hours PRN, mild pain, fever 100.4 F or greater, headaches, Starting on Mon09/13/23 at 1630 heparin bolus from bag 0-5,000 Units (CANCELED) 0-5,000 Units, Intravenous, Continuous PRN, IF the MAR calculator for heparin infusion specifies a bolus from bag is to be administered, Starting on Mon09/13/23 at 1727, Choose one of the following [...] mL, Intravenous, Once in imaging, contrast, Per shaker tender (Radiology) for line patency check prior to contrast administration, Starting on Annalisa 09/14/23 at 0933, For 1 dose 0938 (Given - Provider: Andrez Calabrese TECHNOLOGIST) sodium chloride (PF) (NS) 0.9 % contrast line flush 80 mL (COMPLETED)(Linked Group 4) 80 mL, Intravenous, Once in imaging, contrast, Per shaker tender (Radiology), Starting on Annalisa 09/14/23 at 0933, For 1 dose, 30 mL BEFORE contrast administration 50 mL AFTER contrast administration 0938 (Given - Provider: MANE GuidryOLOGIST) sodium chloride [...] mL, Intravenous, Once in imaging, contrast, Per shaker tender (Radiology) for line patency check prior to contrast administration, Starting on Mon09/14/23 at 0933, For 1 dose And sodium chloride (PF) (NS) 0.9 % contrast line flush 80 mL (COMPLETED)Jump to med 80 mL, Intravenous, Once in imaging, contrast, Per shaker tender (Radiology), Starting on Mon09/14/23 at 0933, For 1 dose
30 mL BEFORE contrast administration 50 mL AFTER contrast administration
Source Comments (unrecognize d section and content) In the event this informatio n is protected by the Federal Confidentiality of Alcohol and Drug Abuse Patient Records regulations: The Federal rules restrict any use of the information to criminally investigate or prosecute any alcohol or drug abuse patient.[facility] Hospital[facility] the event this information is protected by the Federal Confidentiality of Alcohol and Drug Abuse Patient Records regulations: The Federal rules restrict any use of the information to criminally investigate or prosecute any alcohol or drug abuse patient.[facility] HospitalIn the event this information is protected by the Federal Confidentiality of Alcohol and Drug Abuse Patient Records regulations: The Federal rules restrict any use of the information to criminally investigate or prosecute any alcohol or drug abuse patient.[facility] HospitalIn the event this information is protected by the Federal Confidentiality of Alcohol and Drug Abuse Patient Records regulations: The Federal rules restrict any use of the information to criminally investigate or prosecute any alcohol or drug abuse patient.[facility] HospitalIn the event this information is protected by the Federal Confidentiality of Alcohol and Drug Abuse Patient Records regulations: The Federal rules restrict any use of the information to criminally investigate or prosecute any alcohol or drug abuse patient.[facility] HospitalIn the event this information is protected by the Federal Confidentiality of Alcohol and Drug Abuse Patient Records regulations: The Federal rules restrict any use of the information to criminally investigate or prosecute any alcohol or drug abuse patient.[facility] HospitalIn the event this information is protected by the Federal Confidentiality of Alcohol and Drug Abuse Patient Records regulations: The Federal rules restrict any use of the information to criminally investigate or prosecute any alcohol or drug abuse patient.[facility] HospitalIn the event this information is protected by the Federal Confidentiality of Alcohol and Drug Abuse Patient Records regulations: The Federal rules restrict any use of the information to criminally investigate or prosecute any alcohol or drug abuse patient.[facility] HospitalIn the event this information is protected by the Federal Confidentiality of Alcohol and Drug Abuse Patient Records regulations: The Federal rules restrict any use of the information to criminally investigate or prosecute any alcohol or drug abuse patient.[facility] HospitalIn the event this information is protected by the Federal Confidentiality of Alcohol and Drug Abuse Patient Records regulations: The Federal rules restrict any use of the information to criminally investigate or prosecute any alcohol or drug abuse patient.[facility] HospitalIn the event this information is protected by the Federal Confidentiality of Alcohol and Drug Abuse Patient Records regulations: The Federal rules restrict any use of the information to criminally investigate or prosecute any alcohol or drug abuse patient.[facility] HospitalIn the event this information is protected by the Federal Confidentiality of Alcohol and Drug Abuse Patient Records regulations: The Federal rules restrict any use of the information to criminally investigate or prosecute any alcohol or drug abuse patient.[facility] HospitalIn the event this information is protected by the Federal Confidentiality of Alcohol and Drug Abuse Patient Records regulations: The Federal rules restrict any use of the information to criminally investigate or prosecute any alcohol or drug abuse patient.[facility] HospitalIn the event this information is protected by the Federal Confidentiality of Alcohol and Drug Abuse Patient Records regulations: The Federal rules restrict any use of the information to criminally investigate or prosecute any alcohol or drug abuse patient.[facility] HospitalIn the event this information is protected by the Federal Confidentiality of Alcohol and Drug Abuse Patient Records regulations: The Federal rules restrict any use of the information to criminally investigate or prosecute any alcohol or drug abuse patient.[facility] HospitalIn the event this information is protected by the Federal Confidentiality of Alcohol and Drug Abuse Patient Records regulations: The Federal rules restrict any use of the information to criminally investigate or prosecute any alcohol or drug abuse patient.[facility] HospitalIn the event this information is protected by the Federal Confidentiality of Alcohol and Drug Abuse Patient Records regulations: The Federal rules restrict any use of the information to criminally investigate or prosecute any alcohol or drug abuse patient.[facility] HospitalIn the event this information is protected by the Federal Confidentiality of Alcohol and Drug Abuse Patient Records regulations: The Federal rules restrict any use of the information to criminally investigate or prosecute any alcohol or drug abuse patient.[facility] HospitalIn the event this information is protected by the Federal Confidentiality of Alcohol and Drug Abuse Patient Records regulations: The Federal rules restrict any use of the information to criminally investigate or prosecute any alcohol or drug abuse patient.[facility] HospitalIn the event this information is protected by the Federal Confidentiality of Alcohol and Drug Abuse Patient Records regulations: The Federal rules restrict any use of the information to criminally investigate or prosecute any alcohol or drug abuse patient.[facility] HospitalIn the event this information is protected by the Federal Confidentiality of Alcohol and Drug Abuse Patient Records regulations: The Federal rules restrict any use of the information to criminally investigate or prosecute any alcohol or drug abuse patient.[facility] HospitalIn the event this information is protected by the Federal Confidentiality of Alcohol and Drug Abuse Patient Records regulations: The Federal rules restrict any use of the information to criminally investigate or prosecute any alcohol or drug abuse patient.[facility] HospitalIn the event this information is protected by the Federal Confidentiality of Alcohol and Drug Abuse Patient Records regulations: The Federal rules restrict any use of the information to criminally investigate or prosecute any alcohol or drug abuse patient.[facility] HospitalIn the event this information is protected by the Federal Confidentiality of Alcohol and Drug Abuse Patient Records regulations: The Federal rules restrict any use of the information to criminally investigate or prosecute any alcohol or drug abuse patient.[facility] HospitalIn the event this information is protected by the Federal Confidentiality of Alcohol and Drug Abuse Patient Records regulations: The Federal rules restrict any use of the information to criminally investigate or prosecute any alcohol or drug abuse patient.[facility] HospitalIn the event this information is protected by the Federal Confidentiality of Alcohol and Drug Abuse Patient Records regulations: The Federal rules restrict any use of the information to criminally investigate or prosecute any alcohol or drug abuse patient.[facility] HospitalIn the event this information is protected by the Federal Confidentiality of Alcohol and Drug Abuse Patient Records regulations: The Federal rules restrict any use of the information to criminally investigate or prosecute any alcohol or drug abuse patient.[facility] HospitalIn the event this information is protected by the Federal Confidentiality of Alcohol and Drug Abuse Patient Records regulations: The Federal rules restrict any use of the information to criminally investigate or prosecute any alcohol or drug abuse patient.[facility] HospitalIn the event this information is protected by the Federal Confidentiality of Alcohol and Drug Abuse Patient Records regulations: The Federal rules restrict any use of the information to criminally investigate or prosecute any alcohol or drug abuse patient.[facility] HospitalIn the event this information is protected by the Federal Confidentiality of Alcohol and Drug Abuse Patient Records regulations: The Federal rules restrict any use of the information to criminally investigate or prosecute any alcohol or drug abuse patient.[facility] HospitalIn the event this information is protected by the Federal Confidentiality of Alcohol and Drug Abuse Patient Records regulations: The Federal rules restrict any use of the information to criminally investigate or prosecute any alcohol or drug abuse patient.[facility] HospitalIn the event this information is protected by the Federal Confidentiality of Alcohol and Drug Abuse Patient Records regulations: The Federal rules restrict any use of the information to criminally investigate or prosecute any alcohol or drug abuse patient.[facility] Inactive Administered Medications - up to [...] BE BASED ON THE PRIMARY CLINICAL RECORDS. [facility] [employer] [facility]. provides no warranty or guarantee of the accuracy or completeness of information in this document.
[2023-10-23 07:58] LABS: Estimated Average Glucose 160 mg/dL; Glycohemoglobin A1C 7.2 % (4.5-6.2)
[2023-10-23 08:27] LABS: Alanine Aminotransferase 26 U/L (16-63); Albumin Globulin Ratio 0.5; Albumin Level 2.5 g/dL (3.4-5.0); Alkaline Phosphatase 223 U/L (46-116); Anion Gap 14.9; Aspartate Amino Transferase 32 U/L (15-37); BUN Creatinine Ratio 15.8; Bilirubin Total 1.8 mg/dL (0.2-1.0); Calcium 8.9 mg/dL (8.5-10.1); Carbon Dioxide 26.6 mmol/L (21.0-32.0); Chloride 94 mmol/L (98-107); Cholesterol 69 mg/dL (<=200); Estimated GFR (African America 26 (>=60); Estimated GFR (Non-African Ame 21 (>=60); Globulin 5.1 g/dL; Glucose 105 mg/dL (74-106); HDL Cholesterol 35 mg/dL (40-60); Potassium 3.5 mmol/L (3.5-5.1); Sodium 132 mmol/L (136-145); Total Protein 7.6 g/dL (6.4-8.2); Triglycerides 66 mg/dL (<=150); VLDL CHOLESTEROL 13.2 mg/dL
== END 2023-10-23 07:26 | disposition home or self-care (01) ==
LOC: LAB 07:26
PROVIDERS: Family Provider Family Medicine; PCP Family Medicine; Visit Provider Family Medicine
DX: E11.22 Type 2 diabetes mellitus with diabetic chronic kidney disease (principal); N18.32 Chronic kidney disease, stage 3b; Z79.4 Long term (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 insulin; E78.6 Lipoprotein deficiency; E78.2 Mixed hyperlipidemia; I12.9 Hypertensive chronic kidney disease with stage 1 through stage 4 chronic kidney disease, or unspecified chronic kidney disease
CPT/HCPCS: 36415; 80053; 80061; 83036

== ENCOUNTER 2023-11-09 20:26 | Outpatient (REF) | payer OTHER, SELFPAY ==
[2023-11-09 21:11] LABS: Basophils Absolute Auto 0.1 10^3/uL (0.0-0.1); Eosinophils Absolute Auto 0.1 10^3/uL (0.0-0.7); Eosinophils Percent Auto 0.8 % (0.9-7.0); Hematocrit 41.7 % (42.0-54.0); Hemoglobin 12.5 g/dL (14.0-18.0); Immature Granulocytes Abs Auto 0.03 10^3/uL (0.00-0.03); Immature Granulocytes Pct Auto 0.3 % (0.0-0.5); Lymphocytes Absolute Auto 0.9 10^3/uL (1.2-3.8); Lymphocytes Percent Auto 9.5 % (20.5-60.0); Mean Corpuscular Hemoglobin 23.7 pg (25.9-34.0); Mean Corpuscular Volume 79.1 fL (80.0-94.0); Mean Platelet Volume 9.6 fL (9.5-13.5); Monocytes Absolute Auto 0.6 10^3/uL (0.3-0.8); Monocytes Percent Auto 6.6 % (1.7-12.0); Neutrophils Absolute Auto 7.5 10^3/uL (1.4-6.5); Neutrophils Percent Auto 81.8 % (43.0-75.0); Platelet Count 381 10^3/uL (150-450); Red Blood Count 5.27 10^6/uL (4.70-6.10); Red Cell Distribution Width 21.2 % (11.0-15.0); White Blood Count 9.2 10^3/uL (4.0-11.0)
[2023-11-09 21:22] LABS: Alanine Aminotransferase 362 U/L (16-63); Albumin Globulin Ratio 0.5; Albumin Level 2.3 g/dL (3.4-5.0); Alkaline Phosphatase 454 U/L (46-116); Aspartate Amino Transferase 425 U/L (15-37); BUN Creatinine Ratio 27.9; Bilirubin Total 1.2 mg/dL (0.2-1.0); Calcium 9.1 mg/dL (8.5-10.1); Carbon Dioxide 24.6 mmol/L (21.0-32.0); Chloride 95 mmol/L (98-107); Estimated GFR (African America 29 (>=60); Estimated GFR (Non-African Ame 24 (>=60); Glucose 159 mg/dL (74-106); Potassium 4.6 mmol/L (3.5-5.1); Sodium 131 mmol/L (136-145); Total Protein 7.3 g/dL (6.4-8.2)
== END 2023-11-09 20:27 | disposition home or self-care (01) ==
LOC: LAB 20:26
PROVIDERS: Family Provider Family Medicine; PCP Family Medicine; Visit Provider Family Medicine
DX: N17.9 Acute kidney failure, unspecified (principal)
CPT/HCPCS: 36415; 80053; 85025

== ENCOUNTER 2023-11-17 16:20 | Outpatient (REF) | payer OTHER, SELFPAY ==
[2023-11-17 17:18] LABS: Anion Gap 16.7; BUN Creatinine Ratio 26.4; Calcium 9.5 mg/dL (8.5-10.1); Carbon Dioxide 24.3 mmol/L (21.0-32.0); Chloride 98 mmol/L (98-107); Estimated GFR (African America 35 (>=60); Estimated GFR (Non-African Ame 28 (>=60); Glucose 221 mg/dL (74-106); Sodium 134 mmol/L (136-145)
== END 2023-11-17 16:21 | disposition home or self-care (01) ==
LOC: LAB 16:20
PROVIDERS: Family Provider Family Medicine; PCP Family Medicine
DX: I50.9 Heart failure, unspecified (principal)
CPT/HCPCS: 36415; 80048; 83880

== ENCOUNTER 2023-11-29 15:48 | Outpatient (OUT) | payer OTHER, SELFPAY ==
[2023-11-29 16:03] LABS: Ammonia 25 umol/L (11-32)
[2023-11-29 16:12] LABS: Anion Gap 14.7; BUN Creatinine Ratio 18.5; Calcium 8.9 mg/dL (8.5-10.1); Carbon Dioxide 27.5 mmol/L (21.0-32.0); Chloride 100 mmol/L (98-107); Estimated GFR (African America 37 (>=60); Estimated GFR (Non-African Ame 31 (>=60); Glucose 152 mg/dL (74-106); Potassium 4.2 mmol/L (3.5-5.1); Sodium 138 mmol/L (136-145)
[2023-11-29 16:21] LABS: Bilirubin Urine NEGATIVE (NEGATIVE); Blood Urine NEGATIVE (NEGATIVE); Clarity Urine CLEAR (CLEAR); Color Urine LT. YELLOW (YELLOW); Glucose Urine UA >=1000 mg/dL (NEGATIVE); Ketones Urine NEGATIVE (NEGATIVE); Leukocyte Esterase Urine NEGATIVE (NEGATIVE); Nitrite Urine NEGATIVE (NEGATIVE); Protein Urine NEGATIVE (NEG/TRACE); Urobilinogen Urine 0.2 EU/dL (0.2-1.0); pH Urine 6.5 (5.0-9.0)
== END 2023-11-29 15:49 | disposition home or self-care (01) ==
LOC: LAB 15:49
PROVIDERS: Family Provider Family Medicine; PCP Family Medicine; Visit Provider Family Medicine
DX: R53.83 Other fatigue (principal); R41.0 Disorientation, unspecified
CPT/HCPCS: 36415; 80048; 81003; 82140; 87086

== ENCOUNTER 2024-01-22 17:22 | Outpatient (REF) | payer SELFPAY ==
[2024-01-22 18:46] LABS: Anion Gap 11.8; BUN Creatinine Ratio 30.7; Calcium 8.6 mg/dL (8.5-10.1); Carbon Dioxide 27.7 mmol/L (21.0-32.0); Chloride 98 mmol/L (98-107); Estimated GFR (African America 31 (>=60); Estimated GFR (Non-African Ame 26 (>=60); Glucose 219 mg/dL (74-106); Potassium 4.5 mmol/L (3.5-5.1); Sodium 133 mmol/L (136-145)
== END 2024-01-22 17:23 | disposition home or self-care (01) ==
LOC: LAB 17:22
PROVIDERS: Family Provider Family Medicine; PCP Family Medicine
DX: N18.9 Chronic kidney disease, unspecified (principal)
CPT/HCPCS: 36415; 80048

== ENCOUNTER 2024-02-05 17:39 | Outpatient (REF) | payer MEDICARE, SELFPAY ==
[2024-02-05 18:11] LABS: Basophils Absolute Auto 0.1 10^3/uL (0.0-0.1); Basophils Percent Auto 0.7 % (0.2-2.0); Eosinophils Absolute Auto 0.2 10^3/uL (0.0-0.7); Eosinophils Percent Auto 1.7 % (0.9-7.0); Hematocrit 32.1 % (42.0-54.0); Hemoglobin 10.1 g/dL (14.0-18.0); Immature Granulocytes Abs Auto 0.11 10^3/uL (0.00-0.03); Immature Granulocytes Pct Auto 1.1 % (0.0-0.5); Mean Corpuscular HGB Conc 31.5 g/dL (29.9-35.2); Mean Corpuscular Hemoglobin 25.8 pg (25.9-34.0); Mean Corpuscular Volume 82.1 fL (80.0-94.0); Mean Platelet Volume 9.7 fL (9.5-13.5); Monocytes Absolute Auto 1.2 10^3/uL (0.3-0.8); Monocytes Percent Auto 11.9 % (1.7-12.0); Neutrophils Absolute Auto 7.8 10^3/uL (1.4-6.5); Neutrophils Percent Auto 74.6 % (43.0-75.0); Platelet Count 269 10^3/uL (150-450); Red Blood Count 3.91 10^6/uL (4.70-6.10); White Blood Count 10.4 10^3/uL (4.0-11.0)
[2024-02-05 18:24] LABS: C Reactive Protein 5.54 mg/dL (<=0.50)
[2024-02-05 18:29] LABS: Alanine Aminotransferase 243 U/L (16-63); Albumin Globulin Ratio 0.6; Albumin Level 2.6 g/dL (3.4-5.0); Alkaline Phosphatase 148 U/L (46-116); Anion Gap 14.9; Aspartate Amino Transferase 37 U/L (15-37); BUN Creatinine Ratio 24.9; Carbon Dioxide 24.8 mmol/L (21.0-32.0); Chloride 96 mmol/L (98-107); Estimated GFR (African America 29 (>=60); Estimated GFR (Non-African Ame 24 (>=60); Globulin 4.1 g/dL; Glucose 132 mg/dL (74-106); Potassium 3.7 mmol/L (3.5-5.1); Sodium 132 mmol/L (136-145); Total Protein 6.7 g/dL (6.4-8.2); Vancomycin Trough 21.1 ug/mL (5.0-20.0)
[2024-02-05 18:32] LABS: Red Cell Distribution Width 22.1 % (11.0-15.0)
[2024-02-05 18:38] LABS: Erythrocyte Sedimentation Rate 129 mm/hr (<=20)
== END 2024-02-05 17:40 | disposition home or self-care (01) ==
LOC: LAB 17:39
PROVIDERS: Family Provider Family Medicine; PCP Family Medicine
DX: A49.02 Methicillin resistant Staphylococcus aureus infection, unspecified site (principal)
CPT/HCPCS: 36415; 80053; 80202; 85025; 85652; 86140

== ENCOUNTER 2024-02-13 16:18 | Outpatient (REF) | payer MEDICARE, SELFPAY ==
[2024-02-13 16:57] LABS: Basophils Absolute Auto 0.1 10^3/uL (0.0-0.1); Basophils Percent Auto 1.3 % (0.2-2.0); Eosinophils Absolute Auto 0.2 10^3/uL (0.0-0.7); Eosinophils Percent Auto 2.1 % (0.9-7.0); Hematocrit 33.8 % (42.0-54.0); Hemoglobin 10.8 g/dL (14.0-18.0); Immature Granulocytes Abs Auto 0.05 10^3/uL (0.00-0.03); Immature Granulocytes Pct Auto 0.5 % (0.0-0.5); Lymphocytes Percent Auto 10.8 % (20.5-60.0); Mean Corpuscular Hemoglobin 26.1 pg (25.9-34.0); Mean Corpuscular Volume 81.6 fL (80.0-94.0); Mean Platelet Volume 9.7 fL (9.5-13.5); Monocytes Absolute Auto 0.9 10^3/uL (0.3-0.8); Monocytes Percent Auto 9.5 % (1.7-12.0); Neutrophils Percent Auto 75.8 % (43.0-75.0); Platelet Count 314 10^3/uL (150-450); Red Blood Count 4.14 10^6/uL (4.70-6.10); Red Cell Distribution Width 21.9 % (11.0-15.0); White Blood Count 9.2 10^3/uL (4.0-11.0)
[2024-02-13 17:04] LABS: Erythrocyte Sedimentation Rate 73 mm/hr (<=20)
[2024-02-13 17:18] LABS: Estimated Average Glucose 166 mg/dL; Glycohemoglobin A1C 7.4 % (4.5-6.2)
[2024-02-13 17:40] LABS: Anion Gap 17.6; BUN Creatinine Ratio 26.9; C Reactive Protein 3.93 mg/dL (<=0.50); Calcium 8.8 mg/dL (8.5-10.1); Carbon Dioxide 21.3 mmol/L (21.0-32.0); Chloride 96 mmol/L (98-107); Estimated GFR (African America 23 (>=60); Estimated GFR (Non-African Ame 19 (>=60); Glucose 168 mg/dL (74-106); Potassium 4.9 mmol/L (3.5-5.1); Sodium 130 mmol/L (136-145); Vancomycin Trough 24.8 ug/mL (5.0-20.0)
== END 2024-02-13 16:19 | disposition home or self-care (01) ==
LOC: LAB 16:18
PROVIDERS: Family Provider Family Medicine; PCP Family Medicine; Visit Provider Internal Medicine Infectious Disease
DX: A49.02 Methicillin resistant Staphylococcus aureus infection, unspecified site (principal)
CPT/HCPCS: 36415; 80048; 80202; 83036; 85025; 85652; 86140

== ENCOUNTER 2024-02-27 13:34 | Outpatient (REF) | payer MEDICARE, SELFPAY ==
[2024-02-27 14:07] LABS: Basophils Absolute Auto 0.1 10^3/uL (0.0-0.1); Basophils Percent Auto 1.3 % (0.2-2.0); Eosinophils Absolute Auto 0.2 10^3/uL (0.0-0.7); Eosinophils Percent Auto 2.1 % (0.9-7.0); Hematocrit 32.5 % (42.0-54.0); Hemoglobin 10.2 g/dL (14.0-18.0); Immature Granulocytes Abs Auto 0.04 10^3/uL (0.00-0.03); Immature Granulocytes Pct Auto 0.4 % (0.0-0.5); Lymphocytes Absolute Auto 0.7 10^3/uL (1.2-3.8); Lymphocytes Percent Auto 8.2 % (20.5-60.0); Mean Corpuscular HGB Conc 31.4 g/dL (29.9-35.2); Mean Corpuscular Hemoglobin 25.2 pg (25.9-34.0); Mean Corpuscular Volume 80.2 fL (80.0-94.0); Monocytes Absolute Auto 0.9 10^3/uL (0.3-0.8); Monocytes Percent Auto 10.2 % (1.7-12.0); Neutrophils Percent Auto 77.8 % (43.0-75.0); Platelet Count 177 10^3/uL (150-450); Red Blood Count 4.05 10^6/uL (4.70-6.10); Red Cell Distribution Width 19.7 % (11.0-15.0)
[2024-02-27 14:36] LABS: Alanine Aminotransferase 36 U/L (16-63); Albumin Globulin Ratio 0.7; Albumin Level 2.7 g/dL (3.4-5.0); Alkaline Phosphatase 143 U/L (46-116); Anion Gap 14.5; Aspartate Amino Transferase 24 U/L (15-37); BUN Creatinine Ratio 26.7; Bilirubin Total 2.7 mg/dL (0.2-1.0); Calcium 8.6 mg/dL (8.5-10.1); Carbon Dioxide 27.9 mmol/L (21.0-32.0); Chloride 87 mmol/L (98-107); Estimated GFR (African America 21 (>=60); Estimated GFR (Non-African Ame 17 (>=60); Globulin 4.1 g/dL; Glucose 195 mg/dL (74-106); Sodium 127 mmol/L (136-145); Total Protein 6.8 g/dL (6.4-8.2); Vancomycin Trough 24.8 ug/mL (5.0-20.0)
[2024-02-27 14:54] LABS: Potassium 2.4 mmol/L (3.5-5.1)
== END 2024-02-27 13:35 | disposition home or self-care (01) ==
LOC: LAB 13:34
PROVIDERS: Family Provider Family Medicine; PCP Family Medicine
DX: A49.02 Methicillin resistant Staphylococcus aureus infection, unspecified site (principal)
CPT/HCPCS: 36415; 80053; 80202; 85025

== ENCOUNTER 2024-02-28 14:49 | Outpatient (REF) | payer MEDICARE, SELFPAY ==
[2024-02-28 15:18] LABS: BUN Creatinine Ratio 26.9; C Reactive Protein 6.15 mg/dL (<=0.50); Calcium 8.7 mg/dL (8.5-10.1); Carbon Dioxide 28.4 mmol/L (21.0-32.0); Chloride 86 mmol/L (98-107); Estimated GFR (African America 20 (>=60); Estimated GFR (Non-African Ame 16 (>=60); Glucose 208 mg/dL (74-106); Sodium 129 mmol/L (136-145)
[2024-02-28 15:20] LABS: Erythrocyte Sedimentation Rate 106 mm/hr (<=20)
[2024-02-28 16:24] LABS: Potassium 2.4 mmol/L (3.5-5.1); Vancomycin Trough 30.7 ug/mL (5.0-20.0)
== END 2024-02-28 14:50 | disposition home or self-care (01) ==
LOC: LAB 14:49
PROVIDERS: Family Provider Family Medicine; PCP Family Medicine
DX: A49.02 Methicillin resistant Staphylococcus aureus infection, unspecified site (principal); N18.9 Chronic kidney disease, unspecified
CPT/HCPCS: 36415; 80048; 80202; 85652; 86140

== ENCOUNTER 2024-03-18 13:41 | Outpatient (REF) | payer MEDICARE, SELFPAY ==
[2024-03-18 13:58] LABS: Basophils Absolute Auto 0.2 10^3/uL (0.0-0.1); Basophils Percent Auto 1.4 % (0.2-2.0); Eosinophils Absolute Auto 0.3 10^3/uL (0.0-0.7); Eosinophils Percent Auto 2.4 % (0.9-7.0); Hematocrit 28.5 % (42.0-54.0); Hemoglobin 8.9 g/dL (14.0-18.0); Immature Granulocytes Abs Auto 0.06 10^3/uL (0.00-0.03); Immature Granulocytes Pct Auto 0.6 % (0.0-0.5); Lymphocytes Absolute Auto 0.8 10^3/uL (1.2-3.8); Mean Corpuscular HGB Conc 31.2 g/dL (29.9-35.2); Mean Corpuscular Hemoglobin 24.8 pg (25.9-34.0); Mean Corpuscular Volume 79.4 fL (80.0-94.0); Mean Platelet Volume 11.4 fL (9.5-13.5); Monocytes Absolute Auto 0.9 10^3/uL (0.3-0.8); Monocytes Percent Auto 8.3 % (1.7-12.0); Neutrophils Absolute Auto 8.4 10^3/uL (1.4-6.5); Neutrophils Percent Auto 79.3 % (43.0-75.0); Platelet Count 153 10^3/uL (150-450); Red Blood Count 3.59 10^6/uL (4.70-6.10); Red Cell Distribution Width 19.6 % (11.0-15.0); White Blood Count 10.5 10^3/uL (4.0-11.0)
[2024-03-18 14:04] LABS: Erythrocyte Sedimentation Rate 45 mm/hr (<=20)
[2024-03-18 14:40] LABS: Alanine Aminotransferase 17 U/L (16-63); Albumin Globulin Ratio 0.6; Albumin Level 2.4 g/dL (3.4-5.0); Alkaline Phosphatase 118 U/L (46-116); Anion Gap 13.3; Aspartate Amino Transferase 21 U/L (15-37); BUN Creatinine Ratio 21.2; Bilirubin Total 1.4 mg/dL (0.2-1.0); C Reactive Protein 4.29 mg/dL (<=0.50); Calcium 8.4 mg/dL (8.5-10.1); Carbon Dioxide 27.3 mmol/L (21.0-32.0); Chloride 88 mmol/L (98-107); Estimated GFR (African America 16 (>=60); Estimated GFR (Non-African Ame 13 (>=60); Glucose 177 mg/dL (74-106); Potassium 3.6 mmol/L (3.5-5.1); Sodium 125 mmol/L (136-145); Total Protein 6.4 g/dL (6.4-8.2); Vancomycin Trough 16.8 ug/mL (5.0-20.0)
== END 2024-03-18 13:42 | disposition home or self-care (01) ==
LOC: LAB 13:41
PROVIDERS: Family Provider Family Medicine; PCP Family Medicine
DX: A49.02 Methicillin resistant Staphylococcus aureus infection, unspecified site (principal)
CPT/HCPCS: 36415; 80053; 80202; 85025; 85652; 86140